=== PATIENT | female | born 1960 | race Caucasian/White ===

== ENCOUNTER 2022-07-22 07:06 | Day surgery (SDC) | payer MEDICARE, SELFPAY ==
[2022-07-22 08:06] LABS: Glucometer 169 mg/dL (74-106)
[2022-07-22 08:19] VITALS: BP 171/100; PULSE 84; RESP 16; TEMP 36.3; O2SAT 97
[2022-07-22] MEDS: METHYLPREDNISOLONE ACETATE 80 MG/ML VIAL INJ (08:50)
[2022-07-22] MEDS: LIDOCAINE HCL 2% PF 100 MG/5 ML VIAL INJ (08:50)
[2022-07-22] MEDS: IOHEXOL 240 MG/ML - 10 ML VIAL INJ (08:50)
[2022-07-22] MEDS: 0.9 % SODIUM CHLORIDE 10 ML SYRINGE - SALINE FLUSH INJ (08:50)
[2022-07-22] MEDS: BUPIVACAINE HCL 0.25% PF 25 MG/10 ML VIAL INJ (08:50)
[2022-07-22 10:33] VITALS: BP 194/87; BP 197/91; PULSE 80; PULSE 83; RESP 20; O2SAT 95
--- NOTE | 2022-07-22 11:15 | P.ON_ITS ---
Date of procedure: 07/22/22 Procedure: Caudal Epidural Steroid Injection With catheter advancement Pre-operative diagnosis includes Radiculopathy Postoperative diagnosis same Under fluoroscopic guidance Solution used for the injection is Marcaine 0.25% Depo-Medrol 80 mg total of 5ml Omnipaque 3ml total, 1ml was used for injection to confirm needle tip placement and catheter tip placement within the epidural space. catheter was removed with the tip intact. Anesthesia: local anesthesia using 2% lidocaine, total no more than 5 mL. Timeout process compliant After obtaining informed consent .the patient was brought to the procedure room .placed in the prone position . the area was prepped and draped in a sterile fa shion utilizing betadine. 25 gauge needle was used to create a skin wheal over the sacral hiatus identified under fluoroscopy. 17 gauge touhy needle was inserted over the anesthetized area and directed to the [place] hiatus under fluoroscopic guidance . after piercing the sacrococcygeal ligament. Confirmation of needle tip placement within the epidural space was accomplished with injection of contrast solution. epidural catheter was advanced to the L5 level .catheter placement confirmed with injection of contrast solution . the steroid solution was then injected .needle and catheter was removed post procedurally. patient transferred to recovery area in stable condition. Discharged home after meeting criteria. Anesthesia: Local Surgeon: Tierney Terry Condition: stable
== END 2022-07-22 08:59 | disposition home or self-care (01) ==
PROVIDERS: Visit Provider Anesthesiology Pain Medicine
DX: M54.16 Radiculopathy, lumbar region (principal); E11.9 Type 2 diabetes mellitus without complications; Z79.4 Long term (current) use of insulin
CPT/HCPCS: 36415; 62323; 82948; J1040; Q9966

== ENCOUNTER 2022-08-07 13:09 | Outpatient (OUT) | payer MEDICARE, SELFPAY ==
--- NOTE | 2022-08-07 13:42 | CONS_ITS ---
CONSULTATION DATE: ??08/07/2022 TO:? Judith Newman D.O. CHIEF COMPLAINT:? Includes severe lower back pain, bilateral lower extremity pain, worse on the right than left side.? HISTORY:? She reports the pain as being 7/10 pain, sharp in character, increased with activity such as standing, walking and performing transitioning maneuvers.? She feels most comfortable in the semi-recumbent position.? Denied any change in bowel and bladder habits or new sensorimotor changes in the lower extremities. EXAM:? Notable for patient having persistent hypoesthesia along the right L4 dermatome; however, her motor strength is 5/5.? She has negative straight leg raise.? She had no signs consistent with myelopathy involving the lower extremities.? She had a fair amount of myofascial spasm of the lumbar paravertebral muscles occurring bilaterally.? IMPRESSION:? Our impression is patient appears to have chronic pain secondary to spinal stenosis with right L4 radiculopathy, which had improved after her last caudal epidural steroid injection.? However, despite the improvement in her strength, she still has significant pain over her lower back.? At this point, she has failed conservative therapy with interventional pain management techniques at this current time. RECOMMENDATIONS:? I recommend she consider following up with possible neurosurgical options.? I have asked her to continue with her current regimen consisting of Zanaflex 4 mg b.i.d., [place] 5 mg t.i.d., which she reports does improve her pain symptoms and improves her quality of life and her sleep pattern, and she denies having side effects with the same.? Will see her back in the office in approximately two months? time or sooner if needed. As part of providing excellent, safe, comprehensive care, the following was completed at our patient's visit: 1. A medication reconciliation and review to ensure accurate knowledge of current/active medications, including asking our patients to inform us about any [id number] medications or herbal remedies/nutritional supplements/alternative remedies. 2. A review to specifically ensure our patients have had annual screening for: elevated body mass index (BMI, see intake chart for exact total), tobacco use, screening for depression, and screening for unhealthy alcohol use.? When screening is concerning, patients are provided with education and the specific recommendation to discuss the concerning health issue and treatment options with their primary care provider. MAYELA
== END 2022-08-07 13:10 | disposition still patient (30) ==
PROVIDERS: Visit Provider Anesthesiology Pain Medicine
DX: M48.061 Spinal stenosis, lumbar region without neurogenic claudication (principal); M54.16 Radiculopathy, lumbar region; M54.50 Low back pain, unspecified; M79.662 Pain in left lower leg; M79.661 Pain in right lower leg; G89.29 Other chronic pain
CPT/HCPCS: G0463

== ENCOUNTER 2022-10-15 11:22 | Outpatient (OUT) | payer MEDICARE, SELFPAY ==
--- NOTE | 2022-10-15 11:34 | PM.CN ---
Consult Note: HPI Data of Consult Patient: known to practice within the last 3 years Requesting Physician: Shama Allen NP Primary Care Provider: [facility] Consult Narrative Reason for consult: low back pain Narrative: Tana Clay a pleasant 62 year old female presents for follow up on low back pain with intermittent neurogenic claudication and bilateral knee pain. Patient currently on lyrica 75mg BID, zanaflex 4mgBID, norco 5/325 TID and wellbutrin 300mg daily. Patient reports her pain is mildly controlled, today rating pain 3/10. patient continues to follow up with Dr Turner. cc:: CC: Shama Allen NP Review of Systems ROS Status of ROS 10 or more systems reviewed and unremarkable except as noted in history and below Musculoskeletal Reports: back pain and joint pain [facility] Medical History (Updated 10/15/22 @ 12:08 by Shama Allen NP) Surgical History Meds Home Medications and Allergies Home Medications Medication Instructions Recorded Confirmed Type Pamelor 100 mg PO .hs 07/16/22 07/22/22 History aripiprazole 5 mg tablet (Abilify) 5 mg PO QDAY 07/16/22 07/22/22 History atorvastatin 40 mg tablet 40 mg PO QDAY 07/16/22 07/22/22 History bupropion HCl 300 mg 24 hr tablet, 300 mg PO QDAY 07/16/22 07/22/22 History extended release (Wellbutrin XL) hydrocodone 5 mg-acetaminophen 325 1 tab PO TID 07/16/22 07/22/22 History mg tablet lisinopril 5 mg tablet 5 mg PO QDAY 07/16/22 07/22/22 History metformin 1,000 mg tablet 1,000 mg PO BID 07/16/22 07/22/22 History metoprolol tartrate 25 mg tablet 25 mg PO BID 07/16/22 07/22/22 History omeprazole 20 mg capsule,delayed 20 mg PO QDAY 07/16/22 07/22/22 History release pregabalin 75 mg capsule (Lyrica) 75 mg PO BID 07/16/22 07/22/22 History tizanidine 4 mg capsule (Zanaflex) 4 mg PO Q12H 07/16/22 07/22/22 History hydrocodone 5 mg-acetaminophen 325 1 tab PO TID PRN pain #90 tabs 10/06/22 Rx mg tablet Allergies Allergy/AdvReac Type Severity Reaction Status Date / Time No Known Drug Allergies Allergy Verified 07/16/22 11:53 Exam Constitutional Documenting provider has reviewed patient's vital signs: yes Common normals: no apparent distress, oriented x3, healthy appearing, alert and well nourished General appearance: cooperative HENMT Common normals: normocephalic, hearing grossly normal bilaterally and moist oral mucous membranes Head and scalp: normocephalic Eye Common normals: PERRL Pupil: PERRL Neck & C-Spine Common normals: full ROM General: normal visual inspection Chest Common normals: inspection of chest normal Respiratory Common normals: normal respiratory effort, no retractions and no use of accessory muscles Back & Pelvis Thoracic spine/upper back: normal to inspection and thoracic ROM normal Lumbar spine/lower back: ROM limited, pain with ROM and straight leg raise positive right Sacroiliac joints: SI joints normal Other: back pain with intermittent right sided radiculopathy Extremity Right lower extremity: knee joint Left lower extremity: knee joint Other: R/L knee pain, limited ROM, decrease in strength. Neuro Common normals: oriented x3, CN's II-XII intact bilaterally, moves all extremities, no focal motor deficits, no sensory deficits noted and deep tendon reflexes 2+ bilaterally Sensorium/orientation: alert Motor exam: no movement abnormalities noted and strength abnormal (BLE 3/5) Psych Common normals: mental status grossly normal, thought process normal, cooperative, affect normal, speech normal and activity/motor behavior normal Speech: normal speech Thought process: normal thought process Results Additional Findings Additional findings: I have checked an OARRS report on this patient today and there are no aberrancies noted in the prescribing history.?? A drug screen was completed and reviewed within the last year, and if there has not been a drug screen completed we ordered one today to monitor higher risk, state monitored pain medication use. As part of providing excellent, safe, comprehensive care, the following was completed at our patient's visit: 1. A medication reconciliation and review to ensure accurate knowledge of current/active medications, including asking our patients to inform us about any [id number] medications or herbal remedies/nutritional supplements/alternative remedies. 2. A review to specifically ensure our patients have had annual screening for: elevated body mass index (BMI), tobacco use, screening for depression, and screening for unhealthy alcohol use. When screening is concerning, patients are provided with education and the specific recommendation to discuss the concerning health issue and treatment options with their primary care provider. The patient was counseled that proper dietary changes and consistent participation in a home exercise plan can lead to weight loss. Weight loss can help to improve functionality in patients with chronic pain.? Assessment and Plan Assessment and Plan (1) Bilateral knee pain: (2) Lumbar radiculopathy: (3) Muscle spasm: (4) Spinal stenosis of lumbar region: Plan continue lyrica 75mg BID continue zanaflex 4mg BID continue wellbutron 300mg daily discussed opioid wean/titration of norco 5/325 mg TID as she does not find this medication beneficial. Discussed cutting back to BID-TID and if pain increases then we may need to increase dose of medication, if pain is unchanged as she comes down off of this medication we can consider medication rotation. continue follow up with neurosurgery and PCP f/u 2 months to discuss care plan
== END 2022-10-15 11:23 | disposition home or self-care (01) ==
LOC: PM 11:22
PROVIDERS: Visit Provider Nurse Practitioner
DX: M54.16 Radiculopathy, lumbar region (principal); M25.561 Pain in right knee; M25.562 Pain in left knee; M62.838 Other muscle spasm; M48.061 Spinal stenosis, lumbar region without neurogenic claudication
CPT/HCPCS: G0463

== ENCOUNTER 2022-12-10 10:53 | Outpatient (OUT) | payer MEDICARE, SELFPAY ==
--- NOTE | 2022-12-10 11:14 | P.CN_ITS ---
Consult Note: HPI Data of Consult Requesting Physician: Shama Allen NP Primary Care Provider: [facility] Consult Narrative Reason for consult: F/u Narrative: Lesli Clay a pleasant 62 year old female presents for evaluation and management of chronic low back pain and NC to bilateral legs. Patient has been deemed nonsurgical by two N/s now, most recently Dr Turner. Patient rating pain 5/10 sharp stabbing pressure and pain, weakness and cramping in legs with ambulation. Patient wishes to discuss medication management today as she has failed to benefit from injection therapy in the past. cc:: CC: Shama Allen NP Review of Systems ROS Status of ROS 10 or more systems reviewed and unremarkable except as noted in history and below Musculoskeletal Reports: back pain PFSH PFSH Medical History (Updated 12/10/22 @ 12:07 by Shama Allen NP) Acid reflux ?K21.9 - Gastro-esophageal reflux disease without esophagitis (ICD-10) Anesthesia complication ?T88.59XA - Other complications of anesthesia, initial encounter (ICD-10) Anxiety ?F41.9 - Anxiety disorder, unspecified (ICD-10) Diabetes 1.5, managed as type 2 ?E13.9 - Other specified diabetes mellitus without complications (ICD-10) Heartburn ?R12 - Heartburn (ICD-10) Hypercholesterolemia ?E78.00 - Pure hypercholesterolemia, unspecified (ICD-10) Hypertension ?I10 - Essential (primary) hypertension (ICD-10) Low back pain ?M54.50 - Low back pain, unspecified (ICD-10) Obesity ?E66.9 - Obesity, unspecified (ICD-10) Osteoarthritis ?M19.90 - Unspecified osteoarthritis, unspecified site (ICD-10) Postmenopausal ?Z78.0 - Asymptomatic menopausal state (ICD-10) RSD (reflex sympathetic dystrophy) ?G90.50 - Complex regional pain syndrome I, unspecified (ICD-10) Shingles ?B02.9 - Zoster without complications (ICD-10) Surgical History H/O dilation and curettage ?Z98.890 - Other specified postprocedural states (ICD-10) H/O hemorrhoidectomy ?Z98.890 - Other specified postprocedural states (ICD-10) H/O lumbar discectomy ?Z98.890 - Other specified postprocedural states (ICD-10) H/O repair of rotator cuff ?Z98.890 - Other specified postprocedural states (ICD-10) History of delivery ?Z98.891 - History of uterine scar from previous surgery (ICD-10) History of fusion of cervical spine ?Z98.1 - Arthrodesis status (ICD-10) History of hysteroscopy ?Z98.890 - Other specified postprocedural states (ICD-10) History of lumbar laminectomy ?Z98.890 - Other specified postprocedural states (ICD-10) Hx of arthroscopy of knee ?Z98.890 - Other specified postprocedural states (ICD-10) S/P trigger finger release ?Z98.890 - Other specified postprocedural states (ICD-10) Meds Home Medications and Allergies Home Medications Medication Instructions Recorded Confirmed Type Pamelor 100 mg PO .hs 07/16/22 07/22/22 History aripiprazole 5 mg tablet (Abilify) 5 mg PO QDAY 07/16/22 07/22/22 History atorvastatin 40 mg tablet 40 mg PO QDAY 07/16/22 07/22/22 History bupropion HCl 300 mg 24 hr tablet, 300 mg PO QDAY 07/16/22 07/22/22 History extended release (Wellbutrin XL) hydrocodone 5 mg-acetaminophen 325 1 tab PO TID 07/16/22 07/22/22 History mg tablet lisinopril 5 mg tablet 5 mg PO QDAY 07/16/22 07/22/22 History metformin 1,000 mg tablet 1,000 mg PO BID 07/16/22 07/22/22 History metoprolol tartrate 25 mg tablet 25 mg PO BID 07/16/22 07/22/22 History omeprazole 20 mg capsule,delayed 20 mg PO QDAY 07/16/22 07/22/22 History release pregabalin 75 mg capsule (Lyrica) 75 mg PO BID 07/16/22 07/22/22 History tizanidine 4 mg capsule (Zanaflex) 4 mg PO Q12H 07/16/22 07/22/22 History hydrocodone 5 mg-acetaminophen 325 1 tab PO TID PRN pain #90 tabs 10/06/22 Rx mg tablet hydrocodone 5 mg-acetaminophen 325 1 tab PO TID PRN pain #90 tabs 10/30/22 Rx mg tablet hydrocodone 5 mg-acetaminophen 325 1 tab PO TID PRN pain #90 tabs 12/03/22 Rx mg tablet Allergies Allergy/AdvReac Type Severity Reaction Status Date / Time No Known Drug Allergies Allergy Verified 07/16/22 11:53 Exam Constitutional Documenting provider has reviewed patient's vital signs: yes Common normals: no apparent distress, oriented x3, healthy appearing, alert and well nourished General appearance: cooperative HENNH Common normals: normocephalic, hearing grossly normal bilaterally and moist oral mucous membranes Head and scalp: normocephalic Eye Common normals: PERRL Pupil: PERRL Neck & C-Spine Common normals: full ROM General: normal visual inspection Chest Common normals: inspection of chest normal Respiratory Common normals: normal respiratory effort, no retractions and no use of accessory muscles Back & Pelvis Thoracic spine/upper back: normal to inspection and thoracic ROM normal Lumbar spine/lower back: ROM limited, pain with ROM and straight leg raise positive right Sacroiliac joints: SI joints normal Other: back pain with intermittent right sided radiculopathy bilateral leg weakness and cramping Extremity Common normals: normal to inspection and full ROM Right lower extremity: knee joint Left lower extremity: knee joint Other: R/L knee pain, limited ROM, decrease in strength. Neuro Common normals: oriented x3, CN's II-XII intact bilaterally, moves all extremities, no focal motor deficits, no sensory deficits noted and deep tendon reflexes 2+ bilaterally Sensorium/orientation: alert Gait (neuro): antalgic Motor exam: no movement abnormalities noted and strength abnormal (BLE 3/5) Psych Common normals: mental status grossly normal, thought process normal, cooperative, affect normal, speech normal and activity/motor behavior normal Speech: normal speech Thought process: normal thought process Assessment and Plan Assessment and Plan (1) Spinal stenosis of lumbar region: (2) Muscle spasm: (3) Lumbar radiculopathy: (4) Chronic prescription opiate use: Assessment and Plan: I feel these medications are improving the patient's quality of life and allow them to tolerate activities of daily living as well as participate in recreational activity.? The patient does not report intolerable side effects. The patient is NOT opioid naive and non-pharmacologic and non-opioid treatment has failed to significantly relieve the patient's pain and improve functionality. The patient has a diagnosis that is related to a somatic or visceral pain etiology. ? ?? I reviewed with the patient the potential risks and side effects with the use of? opioid medications including but not limited to respiratory depression,? sedation, and even . I verified the patient has access to naloxone should? these effects occur. I advised the patient to avoid the use of any other? sedation substances including alcohol, THC, and benzodiazepines while? taking opioid medications due to the risk of compounding side effects and? detrimental outcomes. I reviewed the [employer], pain treatment agreement, urine? drug screen, and opioid start talking forms. The patient was advised to let? their family know they had Naloxone in case they would need to administer? the medication.? ?? A drug screen was completed within the last year, and no aberrancies were noted regarding their use of controlled substances. The patient understands they are subject to the terms and conditions of the pain contract that they have signed. ? ?? I have checked an OARRS report on this patient today and there are no aberrancies noted in the prescribing history.? Plan stop Presho, start percocet 5-325mg TID PRN narcan discussed and prescribed continue lyrica 75mg BID continue zanaflex 4mg BID continue wellbutron 300mg daily continue f/u with PCP regarding high BP f/u 1 month to review medication changes
== END 2022-12-10 10:54 | disposition home or self-care (01) ==
PROVIDERS: Visit Provider Nurse Practitioner
DX: M48.061 Spinal stenosis, lumbar region without neurogenic claudication (principal); M62.838 Other muscle spasm; M54.16 Radiculopathy, lumbar region; Z79.891 Long term (current) use of opiate analgesic
CPT/HCPCS: G0463

== ENCOUNTER 2023-01-07 11:06 | Outpatient (OUT) | payer MEDICARE, SELFPAY ==
--- NOTE | 2023-01-07 11:39 | P.CN_ITS ---
Consult Note: HPI Data of Consult Patient: known to practice within the last 3 years Requesting Physician: Shama Allen NP Primary Care Provider: [facility] Consult Narrative Reason for consult: F/u Narrative: Lesli Clay a pleasant 62 year old female presents for evaluation and management of chronic low back pain and NC to bilateral legs. Patient has been deemed nonsurgical by three neurosurgens recently and deemed non surgical. Patient rating pain 7/10 sharp stabbing pressure and pain, weaknes s and cramping in legs with ambulation. Patient wishes to discuss medication management today as she has failed to benefit from injection therapy in the past. cc:: CC: Shama Allen NP Review of Systems ROS Status of ROS 10 or more systems reviewed and unremarkable except as noted in history and below Musculoskeletal Reports: back pain and joint pain PFSH PFS Medical History (Updated 12/10/22 @ 12:07 by Shama Allen NP) Acid reflux ?K21.9 - Gastro-esophageal reflux disease without esophagitis (ICD-10) Anesthesia complication ?T88.59XA - Other complications of anesthesia, initial encounter (ICD-10) Anxiety ?F41.9 - Anxiety disorder, unspecified (ICD-10) Diabetes 1.5, managed as type 2 ?E13.9 - Other specified diabetes mellitus without complications (ICD-10) Heartburn ?R12 - Heartburn (ICD-10) Hypercholesterolemia ?E78.00 - Pure hypercholesterolemia, unspecified (ICD-10) Hypertension ?I10 - Essential (primary) hypertension (ICD-10) Low back pain ?M54.50 - Low back pain, unspecified (ICD-10) Obesity ?E66.9 - Obesity, unspecified (ICD-10) Osteoarthritis ?M19.90 - Unspecified osteoarthritis, unspecified site (ICD-10) Postmenopausal ?Z78.0 - Asymptomatic menopausal state (ICD-10) RSD (reflex sympathetic dystrophy) ?G90.50 - Complex regional pain syndrome I, unspecified (ICD-10) Shingles ?B02.9 - Zoster without complications (ICD-10) Surgical History H/O dilation and curettage ?Z98.890 - Other specified postprocedural states (ICD-10) H/O hemorrhoidectomy ?Z98.890 - Other specified postprocedural states (ICD-10) H/O lumbar discectomy ?Z98.890 - Other specified postprocedural states (ICD-10) H/O repair of rotator cuff ?Z98.890 - Other specified postprocedural states (ICD-10) History of delivery ?Z98.891 - History of uterine scar from previous surgery (ICD-10) History of fusion of cervical spine ?Z98.1 - Arthrodesis status (ICD-10) History of hysteroscopy ?Z98.890 - Other specified postprocedural states (ICD-10) History of lumbar laminectomy ?Z98.890 - Other specified postprocedural states (ICD-10) Hx of arthroscopy of knee ?Z98.890 - Other specified postprocedural states (ICD-10) S/P trigger finger release ?Z98.890 - Other specified postprocedural states (ICD-10) Meds Home Medications and Allergies Home Medications Medication Instructions Recorded Confirmed Type Pamelor 100 mg PO .hs 07/16/22 07/22/22 History aripiprazole 5 mg tablet (Abilify) 5 mg PO QDAY 07/16/22 07/22/22 History atorvastatin 40 mg tablet 40 mg PO QDAY 07/16/22 07/22/22 History bupropion HCl 300 mg 24 hr tablet, 300 mg PO QDAY 07/16/22 07/22/22 History extended release (Wellbutrin XL) hydrocodone 5 mg-acetaminophen 325 1 tab PO TID 07/16/22 07/22/22 History mg tablet lisinopril 5 mg tablet 5 mg PO QDAY 07/16/22 07/22/22 History metformin 1,000 mg tablet 1,000 mg PO BID 07/16/22 07/22/22 History metoprolol tartrate 25 mg tablet 25 mg PO BID 07/16/22 07/22/22 History omeprazole 20 mg capsule,delayed 20 mg PO QDAY 07/16/22 07/22/22 History release pregabalin 75 mg capsule (Lyrica) 75 mg PO BID 07/16/22 07/22/22 History tizanidine 4 mg capsule (Zanaflex) 4 mg PO Q12H 07/16/22 07/22/22 History hydrocodone 5 mg-acetaminophen 325 1 tab PO TID PRN pain #90 tabs 10/06/22 Rx mg tablet hydrocodone 5 mg-acetaminophen 325 1 tab PO TID PRN pain #90 tabs 10/30/22 Rx mg tablet hydrocodone 5 mg-acetaminophen 325 1 tab PO TID PRN pain #90 tabs 12/03/22 Rx mg tablet oxycodone-acetaminophen 5 mg-325 1 tab PO TID PRN pain #90 tabs 12/10/22 Rx mg tablet (Percocet) Allergies Allergy/AdvReac Type Severity Reaction Status Date / Time No Known Drug Allergies Allergy Verified 07/16/22 11:53 Assessment and Plan Assessment and Plan (1) Spinal stenosis of lumbar region: (2) Muscle spasm: (3) Lumbar radiculopathy: (4) Chronic prescription opiate use: Assessment and Plan: I feel these medications are improving the patient's quality of life and allow them to tolerate activities of daily living as well as participate in recreational activity.? The patient does not report intolerable side effects. The patient is NOT opioid naive and non-pharmacologic and non-opioid treatment has failed to significantly relieve the patient's pain and improve functionality. The patient has a diagnosis that is related to a somatic or visceral pain etiology. ? ?? I reviewed with the patient the potential risks and side effects with the use of? opioid medications including but not limited to respiratory depression,? sedation, and even . I verified the patient has access to naloxone should? these effects occur. I advised the patient to avoid the use of any other? sedation substances including alcohol, THC, and benzodiazepines while? taking opioid medications due to the risk of compounding side effects and? detrimental outcomes. I reviewed the [employer], pain treatment agreement, urine? drug screen, and opioid start talking forms. The patient was advised to let? their family know they had Naloxone in case they would need to administer? the medication.? ?? A drug screen was completed within the last year, and no aberrancies were noted regarding their use of controlled substances. The patient understands they are subject to the terms and conditions of the pain contract that they have signed. ? ?? I have checked an OARRS report on this patient today and there are no aberrancies noted in the prescribing history.? Plan increase percocet to 7.5-325mg BID-TID PRN moderate to severe pain #75 tablets a month narcan discussed and prescribed continue lyrica 75mg BID continue zanaflex 4mg BID continue Wellbutrin 300mg daily f/u 1 month to review medication changes
== END 2023-01-07 11:07 | disposition home or self-care (01) ==
PROVIDERS: Visit Provider Nurse Practitioner
DX: M48.061 Spinal stenosis, lumbar region without neurogenic claudication (principal); M62.838 Other muscle spasm; M54.16 Radiculopathy, lumbar region; Z79.891 Long term (current) use of opiate analgesic
CPT/HCPCS: G0463

== ENCOUNTER 2023-02-19 08:07 | Outpatient (OUT) | payer MEDICARE, SELFPAY ==
--- OUTSIDE RECORDS SUMMARY | 2023-02-19 08:10 | XMS_ITS | CCD ---
Author Name Unknown Address [address] [place] [address] Organization [facility] Care Team Providers Care Outpatient Psychiatrist Name Role Phone QUE BLAKE Unavailable Unavailable GECHASEINGQUE Unavailable Unavailable SELF, REFERRED Unavailable Unavailable OLIVE, ROSALES Unavailable Unavailable [facility] Unavailable Unavailable QUE BLAKE Unavailable Unavailable WIEPKING, LAUREN Unavailable Unavailable SELF, REFERRED Unavailable Unavailable RICKY JULIEN Unavailable Unavailable OLIVE, ROSALES Unavailable Unavailable QUE BLAKE Unavailable Unavailable QUE BLAKE Unavailable Unavailable QUE BLAKE Unavailable Unavailable OLIVE, ROSALES Unavailable Unavailable Clifford Munoz Jr. Unavailable Clifford Munoz Unavailable Lili Burgos Unavailable [facility] Unava ilable OLIVIER ., DR ADAM Liu Admitting Unavailable AGUAYO ., DR ADAM Liu Attending Unavailable HERNANDEZ .ALICIA Consulting Unavailable LAKSHMIPATHY ., NARENDRANATH Consulting Daphne vailable [facility] Unava ilable LAKSHMIPATHY ., NARENDRANATH Admitting Daphne vailable LAKSHMIPATHY ., NARENDRANATH Attending Daphne vailable [facility] Unava ilable MARTHA, DR BLANE Cutler Consulting Unavailable HERNANDEZ .ALICIA Admitting Unavailable HERNANDEZ .ALICIA Attending Unavailable HERNANDEZ ., ALICIA Consulting Unavailable [facility] Unava ilable HALKER ., JASON Attending Unavailable HALKER .JASON Consulting Unavailable LAKSHMIPATHY ., NARENDRANATH Admitting Daphne vailable [facility] Unava ilable HALKER ., JASON Admitting Unavailable HALKER ., JASON Attending Unavailable LAKSHMIPATHY ., NARENDRANATH Consulting Daphne vailable [facility] Unava ilable AGUAYO ., DR ADAM Liu Admitting Unavailable AGUAYO ., DR ADAM Liu Attending Unavailable HERNANDEZ ., ALICIA Consulting Unavailable [facility] Unava ilable HERNANDEZ ., ALICIA Consulting Unavailable AGUAYO ., DR ADAM Liu Attending Unavailable AGUAYO ., DR ADAM Liu Admitting Unavailable [facility] Unava ilable AGUAYO ., DR ADAM Liu Admitting Unavailable AGUAYO ., DR ADAM Liu Attending Unavailable HERNANDEZ ., ALICIA Consulting Unavailable [facility] Unava ilable LAKSHMIPATHY ., NARENDRANATH Admitting Daphne vailable LAKSHMIPATHY ., NARENDRANATH Attending Daphne vailable LAKSHMIPATHY ., NARENDRANATH Consulting Daphne vailable Martine Tobias Unavailable Majo, DO Jade Primary Care Provider DO Kalie Kasper Attending Provider DO Judith Newman Primary Care Provider [facility] Attending Provider DO Kalie Kasper Primary Care Provider Majo, DO Jade Attending Provider Stoney Turner Unavailable Martine Tobias Admitting Unavailable Martine Tobias Attending Unavailable Judith Newman Primary Care Unavailable Martine Tobias Admitting Unavailable Martine Tobias Attending Unavailable Judith Newman Primary Care Unavailable Rumschlag, Kalie Admitting Unavailable Rumschlag, Kalie Primary Care Unavailable Rumcurtislag, Kalie Attending Unavailable Martine Tobias Attending Unavailable Martine Tobias Admitting Unavailable Basil Newmanee G Primary Care Unavailable Martine Tobias Admitting Unavailable Martine Tobias Attending Unavailable Judith Newman G Primary Care Unavailable JUDITH NEWMAN Attending Unavailable JUDITH NEWMAN Attending Unavailable JUDITH NEWMAN Attending Unavailable BLANE FREDERICK Attending Unavailable Medications Current Medications Medication Drug Class(es) Dates Sig (Normalized) Sig (Original) 3 ML semaglutide 1.34 MG/ML Pen Injector [Ozempic] (8 sources) inject 1 mg by subcutaneous injection every week Ozempic (1 MG/DOSE) 4 MG/3ML DIAL AND INJECT UNDER THE SKIN 1 MG WEEKLY for 28 Active inject 1 mg by subcu taneous injection every week Ozempic (1 MG/DOSE) 4 MG/3ML DIAL AND INJECT UNDER THE SKIN 1 MG WEEKLY Active 3 ML semaglutide 2.68 MG/ML Pen Injector [Ozempic] (20 sources) Start: 10-28-2021 inject 1 mg by subcutaneous injection every week Ozempic (2 MG/DOSE) 8 MG/3ML as directed Subcutaneous weekly for 90 days PAP Oct, Active Start: 07-08-2021 Start: 07-08-2021 inject 2 mg by subcu taneous injection every week Ozempic (2 MG/DOSE) 8 MG/3ML 2 mg Subcutaneous weekly for 90 days June, Not-Taking Start: 07-08-2021 inject 2 mg by subcu taneous injection every week Ozempic (2 MG/DOSE) 8 MG/3ML 2 mg Subcutaneous weekly for 90 days June, Active inject 2 mg by subcu taneous injection every week Ozempic (2 MG/DOSE) 8 MG/3ML 2 mg Subcutaneous weekly for 90 days PAP Active amLODIPine 10 mg oral tablet (20 sources) Dihydropyridine Calcium Channel Karrie Start: 12-17-2020 take 10 mg by mouth once daily Amlodipine Active 10 MG PO Daily December 17, 2020 12:00am ARIPiprazole 10 mg oral tablet (15 sources) Atypical Antipsychotic Start: 12-17-2020 take 10 mg by mouth once daily Aripiprazole Active 10 MG PO Daily December 17, 2020 12:00am take 1 tablet by mickey th every twenty-four hours ARIPiprazole 15 MG 1 tablet Orally Once a day Active atorvastatin 40 mg oral tablet (20 sources) HMG-CoA Reductase Inhibitor Start: 12-17-2020 take 40 mg by mouth once daily at bedtime Atorvastatin Active 40 MG PO Daily at bedtime December 17, 2020 12:00am 24 hr buPROPion hydrochloride 300 mg extended release oral tablet (20 sources) Aminoketone Start: 11-01-2021 take 300 mg by mouth once daily Bupropion Hcl Active 300 MG PO Daily December 17, 2020 12:00am Cholecalciferol (20 sources) Vitamin D Start: 08-01-2022 Start: 08-01-2022 take 1 capsule by [facility] every week Start: 08-01-2022 take 1 capsule by [facility] every week Cholecalciferol 1.25 MG (91334 UT) 1 capsule Orally weekly for 56 days Then OtC 4000 u daily therafter Jul, Active take 2 tablets by [facility] every twenty-four hours Vitamin D3 50 MCG (2000 UT) 2 tablets Orally Once a day Not-Taking/PRN take 1 capsule by [facility] every week Cholecalciferol 100 MCG (4000 UT) 1 capsule Orally weekly for 56 days Then OtC 4000 u daily therafter Active take 1 capsule by [facility] every week Cholecalciferol 50 MCG (2000 UT) 1 capsule Orally weekly for 56 days Then OtC 4000 u daily therafter Active take 1 capsule by [facility] every week Cholecalciferol 1.25 MG (15890 UT) 1 capsule Orally weekly for 56 days Then OtC 4000 u daily therafter Active clotrimazole 10 mg/ml topica l cream (20 sources) Azole Antifungal Clotrimazole 1 % 1 application Externally Twice a day as needed Active Clotrimazole 1 % 1 application Externally Twice a day Active empagliflozin 25 mg oral tablet (20 sources) Sodium-Glucose Cotransporter 2 Inhibitor Start: 08-01-2022 take 1 tablet by mouth every twenty-four hours Start: 12-17-2020 take 1 tablet by [facility] once daily Empagliflozin (Jardiance) 10 mg tablet Active 20 MG PO Daily December 17, 2020 12:00am 24 hr empagliflozin 12.5 mg / metFORMIN hydrochloride 1000 mg extended release oral tablet (1 source) Biguanide, Sodium-Glucose Cotransporter 2 Inhibitor Start: 02-03-2023 take 2 tablets by mouth once daily at breakfast Synjardy XR 12.5-1000 MG 2 tablets with breakfast Orally Once a day for 30 days samples in office x 4-- knows to hold metformin while on samples Jan, Active fluocinonide 1 mg/ml topical cream (4 sources) Corticosteroid Start: 12-17-2020 Fluocinonide Active 1 APPLIC TOPICAL 2-4 TIMES PER DAY December 17, 2020 12:00am hydroCHLOROthiazide 12.5 mg / losartan potassium 50 mg oral tablet (11 sources) Thiazide Diuretic, Angiotensin 2 Receptor Karrie take 1 tablet by mouth every twenty-four hours Losartan Potassium-HCTZ 50-12.5 MG 1 tablet Orally Once a day Active take 1 tablet by mouth every twe nty-four hours 3 ml insulin glargine 100 unt/ml pen injector (20 sources) Insulin Analog Start: 12-17-2020 Insulin Glargi ne (Basaglar Kwikpen U-100 Insulin) 100 unit/mL (3 mL) insulin pen Active 55 UNIT SUBCUT Daily at bedtime December 17, 2020 12:00am inject 60 [IU] by desai bcutaneous injection once daily as needed, then inject 70 [IU] by subcutaneous injection once daily as needed Basaglar KwikPen 100 UNIT/ML 60 units daily but could titrate up to 70 units if necessary. Subcutaneous Daily for 30 days Not-Taking/PRN Basaglar KwikPen 100 UNIT/ML 68 units and follow sliding scale. Max 74 units a day. Subcutaneous Daily Active lisinopril 30 mg oral tablet (20 sources) Angiotensin Converting Enzyme Inhibitor Start: 12-17-2020 take 30 mg by mouth once daily Lisinopril Active 30 MG PO Daily December 17, 2020 12:00am take 1 tablet by mickey th every twenty-four hours Lisinopril 40 mg 1 tab(s) Orally Once a day Not-Taking/PRN metFORMIN hydrochloride 1000 mg oral tablet (20 sources) Biguanide Start: 12-17-2020 take 1000 mg by mouth twice daily Metformin Active 1000 MG PO Twice daily December 17, 2020 12:00am nortriptyline 50 mg oral capsule (20 sources) Tricyclic Antidepressant Start: 12-17-2020 take 100 mg by mouth once daily at bedtime Nortriptyline Active 100 MG PO Daily at bedtime December 17, 2020 12:00am take 2 capsules by m outh every twenty-four hours take 1 capsule by mo uth every twenty-four hours Nortriptyline HCl 75 MG 1 capsule Orally Once a day Active take 2 capsules by m outh every twenty-four hours omeprazole 20 mg delayed release oral capsule (20 sources) Proton Pump Inhibitor Start: 12-17-2020 take 20 mg by mouth once daily Omeprazole Active 20 MG PO Daily December 17, 2020 12:00am take 1 tablet by mouth at bedtim e PriLOSEC OTC 20 MG 1 tablet Orally bedtime for 30 day(s) Active take 1 tablet by mouth at bedtim e PriLOSEC OTC 20 MG 1 tablet Orally bedtime for 30 day(s) Active take 1 tablet by mouth twice maria eugenia ly PriLOSEC OTC 20 MG 1 tablet Orally Twice a day for 30 day(s) Active Ozempic (2 MG/DOSE) 8 MG/3ML (3 sources) Start: 07-08-2021 inject 2 mg by subcutaneous injection every week Ozempic (2 MG/DOSE) 8 MG/3ML 2 mg Subcutaneous weekly for 90 days June, Active pregabalin 75 mg oral capsule (11 sources) take 1 capsule by mouth every twelve hours Pregabalin 75 MG 1 capsule Orally Twice a day Active Semaglutide (4 sources) Start: 12-17-2020 inject 1 mg by subcutaneous injection every week Semaglutide (Ozempic) 1 mg/dose (4 mg/3 mL) pen injector Active 1 MG SUBCUT every week December 17, 2020 12:00am tiZANidine 4 mg oral tablet (11 sources) Central alpha-2 Adrenergic Agonist take 1 tablet by mouth every eight hours tiZANidine HCl 4 MG 1 tablet as needed Orally Three times a day Active Completed/Discontinued Medications Medication Drug Class(es) Dates Sig (Normalized) Sig (Original) acetaminophen 325 mg / HYDROcodone bitartrate 5 mg oral tablet (20 sources) Opioid Agonist Start: 12-17-2020 End: 01-02-2021 take 1 tablet by mouth twice daily Hydrocodone-Acetami nophen Discontinued 1 TAB PO Twice daily December 17, 2020 12:00am January 02, 2021 11:17pm take 1 tablet by mickey th every six hours HYDROcodone-Acetaminophen 5-325 MG 1 tab let as needed Orally every 6 hrs Not-Taking/PRN take 1 tablet by mickey th every six hours Bynum Active take 1 tablet by mickey th twice daily as needed Bynum 5-325 MG 1 tablet as needed Orally bid Active acetaminophen 325 mg / oxyCODONE hydrochloride 5 mg oral tablet (9 sources) Opioid Agonist Start: 01-03-2021 End: 10-30-2022 take 1 tablet by mouth every six hours Oxycodone-Acetaminophen (Percocet) 5-325 mg tablet Discontinued 1 TAB PO Q6H 12 09January 03, 2021 October 30, 2022 9:55am baclofen 10 mg oral tablet (20 sources) gamma-Aminob utyric Acid-ergic Agonist Start: 12-17-2020 End: 10-30-2022 take 10 mg by mouth once daily at bedtime Baclofen Discontinued 10 MG PO Daily at bedtime December 17, 2020 12:00am October 30, 2022 9:54am take 1 tablet by mickey th every twelve hours Baclofen 10 MG 1 tablet with food or mil k Orally Twice a day for 30 day(s) Not-Taking/PRN furosemide 20 mg oral tablet (20 sources) Loop Diuretic take 1 tablet by mouth once daily as needed Lasix 20 MG 1 tablet prn Orally Once a day Not-Taking/PRN 3 ml insulin degludec 200 unt/ml pen injector (20 sources) Insulin Analog Start: inject 54 [IU] by subcutaneous injection once daily as needed Tresiba FlexTouch 200 UNIT/ML 54 units daily Subcutaneous Daily for 90 days Mar, Not-Taking/PRN Start: 09-20-2021 Tresiba FlexTo uch 100 UNIT/ML 54 u Subcutaneous daily for 90 days Oct, Active Start: 09-20-2021 inject 44 [IU] by desai bcutaneous injection once daily Tresiba FlexTouch 100 UNIT/ML 44 u Subcutaneous daily for 90 days Titrate up to 70 u per day Sep, Active lidocaine 0.05 mg/mg medicated patch (11 sources) Antiarrhythmic, Amide Local Anesthetic Start: 08-12-2022 Lidocaine 5 % 1 patc h remove after 12 hours Externally Once a day for 30 days Jul, Not-Taking/PRN Start: 08-12-2022 ozempic (2 mg/dose) 8 mg/3ml solution pen-injector (4 sources) Start: 07-08-2021 inject 2 mg by subcutaneous injection every week as needed Ozempic (2 MG/DOSE) 8 MG/3ML 2 mg Subcutaneous weekly for 90 days June, Not-Taking/PRN inject 2 mg by subcu taneous injection every week Ozempic (2 MG/DOSE) 8 MG/3ML 2 mg Subcutaneous weekly for 90 days PAP Active propranolol hydrochloride 10 mg oral tablet (4 sources) beta-Adrenergic Karrie Start: 12-17-2020 End: 12-17-2020 Propranolol Discontinued MG TABLET December 17, 2020 12:00am December 17, 2020 11:44am [facility] - (11 sources) [facility] - as directed Topical Daily for 30 days Not-Taking/PRN [facility] - as directed Topical Daily for 30 days Not-Taking [facility] - as directed Topical Daily for 30 days Active Problems Active Problems Problem Classification Problem Date Documented Date Episodic/Chronic Acute and unspecified renal failure (20 sources) Acute renal failure syndrome; 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: [HEMANTH (acute kidney injury)] Episodic Administrative/socia l admission (9 sources) Dietary counseling and surveillance; 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: [Dietary counseling and surveillance Z71.3] Onset: 11-21-2020 Resolved: 10-28-2021 Episodic Anxiety disorders (1 source) Anxiety disorder, unspecified; 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: [ANXIETY DISORDER, UNSPECIFIED] Onset: 09-08-2016 Chronic Diabetes mellitus with complications (20 sources) Hyperglycemia due to type 2 diabetes mellitus; 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: [Type 2 diabetes mellitus with hyperglycemia] Onset: 11-21-2020 Resolved: 10-28-2021 Chronic Diabetes mellitus without complication (2 sources) Type 2 diabetes mellitus without complications; 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: [TYPE 2 DIABETES MELLITUS WITHOUT COMPLICATIONS] Onset: 09-08-2016 Chronic Disorders of lipid metabolism (20 sources) Hyperlipidemia; 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: [Hyperlipidemia, unspecified] Onset: 11-21-2020 Resolved: 10-28-2021 Chronic Esophageal disorders (1 source) Gastro-esophageal reflux disease without esophagitis; 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: [GASTRO-ESOPHAGEAL REFLUX DISEASE WITHOUT ESOPHAGITIS] Onset: 09-08-2016 Chronic Essential hypertension (20 sources) Essential (primary) hypertension; 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: [Benign essential hypertension] Onset: 09-08-2016 Resolved: 10-28-2021 Chronic Nutritional deficiencies (20 sources) Vitamin D deficiency; 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: [Vitamin D deficiency, unspecified] Onset: 07-04-2021 Resolved: 10-28-2021 Chronic Osteoarthritis (11 sources) Unilateral primary osteoarthritis, right knee; 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: [Osteoarthritis of left knee joint] Onset: 09-08-2016 01-03-2021 Chronic Osteoporosis (13 sources) Senile osteoporosis; 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: [Age-related osteoporosis without current pathological fracture] Chronic Other aftercare (4 sources) Aftercare following joint replacement surgery; 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: [AFTERCARE FOLLOWING JOINT REPLACEMENT SURGERY] Onset: 09-25-2016 Chronic Other aftercare (20 sources) Long-term current use of insulin; 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: [FCI (current) use of insulin] Episodic Other aftercare (10 sources) [facility] (current) use of insulin; 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: [[facility]I current use of insulin Z79.4] Onset: 11-21-2020 Resolved: 10-28-2021 Episodic Other connective tissue disease (1 source) Presence of right artificial knee joint; 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: [PRESENCE OF RIGHT ARTIFICIAL KNEE JOINT] Onset: 09-20-2016 Chronic Other connective tissue disease (4 sources) History of total knee arthroplasty; 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: [Presence of left artificial knee joint] 01-03-2021 Chronic Other connective tissue disease (1 source) Pain in left leg Episodic Other connective tissue disease (3 sources) Arthrodesis status Episodic Other connective tissue disease (8 sources) History of lumbar fusion; 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: [Arthrodesis status] Episodic Other nervous system disorders (4 sources) Other specified mononeuropathies of right lower limb; 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: [OTH SPEC MONONEUROPATH RT LOW LIMB] Onset: 06-03-2022 Chronic Other nervous system disorders (2 sources) Other chronic pain; 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: [OTHER CHRONIC PAIN] Onset: 05-23-2022 Chronic Other nervous system disorders (5 sources) Chronic pain; 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: [Other chronic pain] Chronic Other nervous system disorders (8 sources) Tremor; 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: [Tremor, unspecified] Episodic Other nervous system disorders (1 source) Tremor, unspecified Episodic Other non-traumatic joint disorders (1 source) Pain in right hip; 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: [PAIN IN RIGHT HIP] Onset: 06-26-2022 Episodic Other nutritional; endocrine; and metabolic disorders (1 source) Morbid (severe) obesity due to excess calories; 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: [MORBID (SEVERE) OBESITY DUE TO EXCESS CALORIES] Onset: 09-08-2016 Chronic Other nutritional; endocrine; and metabolic disorders (20 sources) Obesity; 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: [Obesity] Chronic Other nutritional; endocrine; and metabolic disorders (20 sources) Body mass index 40+ - severely obese; 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: [Body mass index (BMI) 50.0-59.9, adult] Chronic Other nutritional; endocrine; and metabolic disorders (6 sources) Body mass index (BMI) 45.0-49.9, adult; 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: [BMI 45.0-49.9, adult Z68.42] Onset: 11-21-2020 Resolved: 10-28-2021 Chronic Other nutritional; endocrine; and metabolic disorders (2 sources) Body mass index (BMI) 40.0-44.9, adult; 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: [BMI 40.0-44.9, adult] Chronic Residual codes; unclassified (1 source) Asymptomatic menopausal state Episodic Screening or history of mental health and substance abuse (2 sources) Personal history of nicotine dependence; 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: [Encounter for screening for depression] Onset: 09-08-2016 Episodic Spondylosis; intervertebral disc disorders; other back problems (10 sources) Spondylosis without myelopathy or radiculopathy, lumbar region; 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: [Postlaminectomy syndrome, not elsewhere classified] Onset: 08-05-2021 Chronic Unclassified (11 sources) Body mass index (BMI) 50-59.9 , adult; 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: [BODY MASS INDEX (BMI) 50-59.9 , ADULT] Onset: 09-08-2016 Resolved: 11-21-2020 Chronic Unclassified (1 source) [facility] (current) use of oral hypoglycemic drugs; 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: [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 HYPOGLYCEMIC DRUGS] Onset: 09-08-2016 Unclassified (2 sources) Unknown / UNK(Unknown) Onset: 09-08-2016 Unclassified (1 source) Other specified depressive episodes; 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: [OTHER SPECIFIED DEPRESSIVE EPISODES] Onset: 09-08-2016 Unclassified (4 sources) LOW BACK PAIN, UNSPECIFIED; 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: [LOW BACK PAIN, UNSPECIFIED] Onset: 08-05-2021 Unclassified (1 source) Spinal stenosis, lumbar region with neurogenic claudication; 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: [Spinal stenosis, lumbar region with neurogenic claudication] Onset: 10-30-2022 Unclassified (1 source) Encounter for screening for osteoporosis; 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: [Encounter for screening for osteoporosis] Onset: 10-07-2022 Past or Other Problems Problem Classification Problem Date Documented Da te Episodic/Chronic Complications of surgical procedures or medical care (1 source) Infection following a procedure, initial encounter; 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: [INFECTION FOLLOWING A PROCEDURE, INITIAL ENCOUNTER] Onset: 09-20-2016 Episodic Genitourinary symptoms and ill-defined conditions (1 source) Proteinuria, unspecified; 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: [Albuminuria R80.9] Onset: 11-21-2020 Resolved: 11-21-2020 Episodic Other connective tissue disease (1 source) Other specified soft tissue disorders; 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: [OTHER SPECIFIED SOFT TISSUE DISORDERS] Onset: 09-20-2016 Episodic Other non-traumatic joint disorders (1 source) Pain in right knee; 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: [PAIN IN RIGHT KNEE] Onset: 09-20-2016 Episodic Skin and subcutaneous tissue infections (4 sources) Local infection of the skin and subcutaneous tissue, unspecified; 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: [LOCAL INFECTION OF THE SKIN AND SUBCUTANEOUS TISSUE, UNSP] Onset: 09-20-2016 Episodic Spondylosis; intervertebral disc disorders; other back problems (20 sources) Muscle spasm of back; 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: [Radiculopathy, lumbar region] Onset: 11-06-2021 Episodic Unclassified (1 source) LOW BACK PAIN, UNSPECIFIED; 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: [LOW BACK PAIN, UNSPECIFIED] Onset: 08-01-2021 Unclassified (1 source) Low back pain, unspecified M54.50 Results Test Name Value Interpretation Reference Range Facility A1C HEMOGLOBINon 02-03-2023 HbA1c (Bld) [Mass fraction] 9.7 % [facility] Other Glucose - FINGER STICKon Glucose [Mass/Vol] 178 mg/dL [facility] Other HbA1c (Bld) [Mass fraction]o n 02-03-2023 A1C HEMOGLOBIN [facility] Other Glucose - FINGER STICKon Glucose [Mass/Vol] 180 mg/dL [facility] [employer] [employer] Other CT lumbar spine w conon 10-17 CT lumbar spine w [facility] [place] [id number] CT Scan Report Signed Patient: Lesli Clay MR#: [id number] : 1960 Acct:[id number] Age/Sex: 62 / F ADM Date: 10/30/22 Loc: XD Room: Type: [facility] Attending Dr: Martine SANZ Copies to: [facility] Par[facility] Ordering Provider: [facility] Date of Service: 10/30/22 CT/CT lumbar spine w con: Z98.1 CT lumbar spine w con 10/30/2022 9:06 AM History:Severe low back pain with pressure radiating down right leg into foot TECHNIQUE: Multi detector CT axial slices of the lumbar spine were obtained without IV contrast. Volumetric acquisition sagittal, coronal, and 3-D reconstructions were performed and reviewed on a separate workstation. CT was performed with one or more of the following dose reduction techniques: Automated exposure control, adjustment of the mA and/or kV according to patient size, or use of iterative reconstruction technique. COMPARISON: 09/19/2022 FINDINGS: There is preservation of the vertebral body heights. There is posterior fusion and decompression spanning between L1 and S1. The conus terminates at the inferior endplate of L1. There is fusion across L5-S1 intervertebral disc. There is moderate disc height loss at T11-T12 and T12-L1 with anterior osteophyte formation. No fractures or dislocations are seen. The alignment of the lumbar spine is normal. The paraspinous soft tissues are within normal limits. The visualized lung parenchyma is unremarkable. The visualized abdominal and pelvic viscera is unremarkable. There is a broad-based disc bulge at T12-L1 with mild spinal canal narrowing and mild bilateral neural foraminal narrowing. At the L4-L5 level there is a circumferential disc bulge with facet hypertrophy and ligamentum flavum thickening. There is ascites in the innominate within the facets. There is severe narrowing of spinal canal gas extends anteriorly to the lateral margin of the right neural foramen. At L5-S1 there is endplate osteophyte formation and facet hypertrophy contributing to moderate to severe bilateral neural foraminal narrowing. This is unchanged. CT/CT lumbar spine w con IMPRESSION: At the L4-L5 level there is a circumferential disc bulge with facet hypertrophy and ligamentum flavum thickening. There is ascites in the innominate within the facets. There is severe narrowing of spinal canal gas extends anteriorly to the lateral margin of the right neural foramen. At L5-S1 there is endplate osteophyte formation and facet hypertrophy contributing to moderate to severe bilateral neural foraminal narrowing. This is unchanged. Postoperative changes are redemonstrated, as above. No hardware complication. No malalignment. Impression dictated by: Mindy Tomas M.D.10/30/2022 4:11 PM Dictation Location: [place] HEALTH--14 Transcribed By: MICHELINE 10/30/22 1611 Dictated By: Mindy Tomas II, MD 10/30/22 1602 Signed By: 10/30/22 1611 Normal [facility] IR myelogram spine lumbosacr aby 10-30-2022 IR myelogram spine lumbosacral [facility] [place] [address] Interventional Radiology Rpt Signed Patient: Lesli Clay MR#: [id number] : 1960 Acct:[id number] Age/Sex: 62 / F ADM Date: 10/30/22 Loc: X Room: Type: [facility] Attending Dr: Martine SANZ Copies to: UMU Parry Ordering Provider: UMU Parry Date of Service: 10/30/22 IR/IR myelogram spine lumbosacral: Z98.1 IR myelogram spine lumbosacral 10/30/2022 9:10 AM SIGNS AND SYMPTOMS: Right-sided low back pain radiating to right foot CONTRAST: 15 mL of intravenous Isovue-M 200 INFORMED CONSENT: Reason for procedure was discussed with the patient. The procedure expectations risks benefits options and alternatives were discussed. All the questions were answered. The patient understood the results cannot be guaranteed. The procedure is indicated and risks were acceptable. Consent was obtained. PROCEDURE: A spinal epidural pain block was performed at the L3 level in the midline. Previous laminectomy site. The patient was prepped and draped in a sterile manner. 5 mL of lidocaine 1% without e pinephrine were used for local anesthesia. A 22-gauge spinal needle was introduced into the subarachnoid space at L3. 15 mL of Isovue-M 200 was injected under fluoroscopic visualization. Frontal, lateral, and oblique radiographs of the lumbar spine were obtained. Standing frontal, lateral, and flexion-extension views of the lumbar spine were also obtained. The needle was removed and hemostasis was obtained using manual pressure. Cumulative Air Kerma in mGy: 142 mGy The patient tolerated the procedure well. No immediate complications were detected. Radiographs of the lumbar spine: There is posterior fusion with laminectomy between the L1 and S1 levels without hardware complication or malalignment. There is indentation of the contrast: Representing the thecal sac anteriorly at L4-5 and laterally at L4-5 suggesting disc and facet degenerative changes contributing to significant spinal canal stenosis. Flexion and extension view show no pathologic movement. Atherosclerotic changes are present in the abdominal aorta. IR/IR myelogram spine lumbosacral IMPRESSION: Successful fluoroscopically guided lumbar myelogram. Please see separately dictated CT for further detail. Impression dictated by: Mindy Tomas M.D.10/30/2022 3:59 PM Dictation Location: [place] [address] Transcribed By: [facility] 10/30/22 1556 Dictated By: Mindy Tomas II, MD 10/30/22 1554 Signed By: 10/30/22 1555 Normal [facility] A1C HEMOGLOBINon 10-03-2022 HbA1c (Bld) [Mass fraction] 8.3 % [facility] Other Glucose - FINGER STICKon Glucose [Mass/Vol] 211 mg/dL [facility] Other HbA1c (Bld) [Mass fraction]o n 10-03-2022 A1C HEMOGLOBIN [facility] Other Creatinine (Bld) [Mass/Vol]O rdered By: Martine Tobias on 09-19-2022 Creatinine [Mass/Vol] 0.7 mg/dL 0.6-1.3 [facility] Comment on above: ER/ESD physician is notified/shown all ISTAT results.Critical values may be confirmed by laboratory testing ifdeemed necessary by ER attending doctor. MR lumbar spine wo conon MR lumbar spine wo con [facility] [place] [address] MRI Report Signed Patient: Lesli Clay MR#: [id number] : 1960 Acct:[id number] Age/Sex: 62 / F ADM Date: 09/19/22 Loc: MR Room: Type: [facility] Attending Dr: Martine SANZ Copies to: [facility] Parry Ordering Provider: [facility] Parry Date of Service: 09/19/22 MR/MR lumbar spine wo con: M54.16 MR lumbar spine wo con 09/19/2022 1:34 PM SIGNS AND SYMPTOMS: Lumbar radiculopathy PROTOCOL: Multiplanar multisequence MR images of the lumbar spine were obtained without IV contrast. COMPARISON: CT 03/06/2022. FINDINGS: Image quality is a heavily compromised as a result of fusion hardware. Contrast-enhanced images were not attempted. The bones of the lumbar spine are in anatomic alignment. There is preservation of vertebral body heights. There is posterior fusion hardware from L1 through S1 with evidence of L5-S1 intervertebral fusion. There is moderate disc height loss at T12-L1. The marrow signal is within normal limits. No epidural or paraspinous fluid collection is appreciated. At T12-L1: There is a mild broad-based disc bulge with facet hypertrophy. There is mild spinal canal narrowing with no significant neural foraminal narrowing. At L1-L2: Hardware artifact partially obscures visualization. No significant stenosis. At L2-L3: Hardware artifact partially obscures visualization. No significant stenosis. At L3-L4: Hardware artifact partially obscures visualization. No significant stenosis. At L4-L5: There is a circumferential disc bulge with facet hypertrophy. This contributes to spinal canal stenosis. The moderate to severe. There is also partial visualization of the neural foraminal narrowing on the right appears to be at least moderate. This is similar to that seen on the prior CT. At L5-S1: There is intervertebral fusion with facet hypertrophy and endplate osteophyte formation contributing to moderate to severe right and mild left neural foraminal narrowing. No significant spinal canal stenosis. MR/MR lumbar spine wo con IMPRESSION: Image quality is a heavily compromised as a result of fusion hardware. Contrast-enhanced images were not attempted. Further evaluation with CT myelography may be helpful. At L4-L5: There is a circumferential disc bulge with facet hypertrophy. This contributes to spinal canal stenosis. The moderate to severe. There is also partial visualization of the neural foraminal narrowing on the right appears to be at least moderate. This is similar to that seen on the prior CT. At L5-S1: There is intervertebral fusion with facet hypertrophy and endplate osteophyte formation contributing to moderate to severe right and mild left neural foraminal narrowing. No significant spinal canal stenosis. Impression dictated by: Mindy Tomas M.D.09/19/2022 4:07 PM Dictation Location: RADIO--07 Transcribed By: [facility] 09/19/22 1607 Dictated By: Mindy Tomas II, MD 09/19/22 1600 Signed By: 09/19/22 160 [facility] XR lumbar spine 6V w bending on 08-18-2022 XR lumbar spine 6V w bending [facility] [place] [address] XRay Report Signed Patient: Lesli Clay MR#: [id number] : 1960 Acct:[id number] Age/Sex: 62 / F ADM Date: 08/18/22 Loc: XD Room: Type: [facility] Attending Dr: Martine SANZ Copies to: [facility] Parry Ordering Provider: UMU Parry Date of Service: 08/18/22 XR/XR lumbar spine 6V w bending: M54.16 LUMBAR SPINE - 7 views CLINICAL HISTORY: Low back pain radiates down front of the right leg for several months COMPARISON: Lumbar spine series 10/25/2020 FINDINGS: Posterior hardware fixation L1-S1 without radiographic complication. No pathological motion on flexion or extension views. Vertebral body heights appear maintained. Minimal sidebending. XR/XR lumbar spine 6V w bending IMPRESSION: NO EVIDENCE OF HARDWARE COMPLICATION OR ACUTE BONY PROCESS. Impression dictated by: Noman Dodson Jr., D.OGhulam08/18/2022 12:31 PM Dictation Location: RADIO--12 Transcribed By: MICHELINE 08/18/22 1231 Dictated By: Noman Dodson Jr, DO 08/18/22 1230 Signed By: 08/18/22 1231 Normal [facility] A1C HEMOGLOBINon 06-06-2022 HbA1c (Bld) [Mass fraction] 8.0 % [facility] Other Glucose - FINGER STICKon Glucose [Mass/Vol] 156 mg/dL [facility] Other HbA1c (Bld) [Mass fraction]o n 06-06-2022 A1C HEMOGLOBIN [facility] Other POINT OF CARE GLUCOSEon 05-17 Glucose [Mass/Vol] 185 mg/dL Critically high 74-106 [facility] Comment on above: Performed By: #### P OCGLUC #### [facility] [address] [place] [address] Dr. Keegan Neal A1C HEMOGLOBINon 03-06-2022 HbA1c (Bld) [Mass fraction] 7.8 % [facility] Other CREATININEon 03-06-2022 Creatinine [Mass/Vol] 0.82 mg/dL Normal 0.55-1.02 [facility] Comment on above: Performed By: #### C EJ #### [facility] [address] [address] [address] Keegan Neal EGFR-AF MEXICAN >60 Normal >=60 [facility] Comment on above: Performed By: #### C EJ #### [facility] [address] [place] [address] [address] Keegan Neal EGFR-NON AF MEXICAN >60 Normal >=60 [facility] Comment on above: Performed By: #### C EJ #### [facility] [address] [place] [address] LSPINE WO W CONon 023 CT LSPINE WO W CON EXAMINATION: CT LSPINE WO W CON, 03/06/2022 8:24 AM EST HISTORY: Lumbar radiculopathy ; chronic lumbar pain increasing in severity COMPARISON: XR lumbar spine 10/25/2020 TECHNIQUE: CT of the lumbar spine was performed with and without IV contrast. CT dose reduction technique was used, including Automated Exposure Control. FINDINGS: PARASPINAL AREA: Normal with no visible mass BONES: Posterior mechanical fusion L1-S1 via bilateral pedicle screws and rods; no evidence of hardware fracture or loosening. Posterior decompression L1-L3. LUMBAR DISC LEVELS: L1-L2: Mild central canal and right foramen narrowing. Mild diffuse disc bulging and mild disc height reduction. L2-L3: Early degenerative disc disease is present without focal protrusion or neural impingement. L3-L4: Mild central canal and bilateral foramen narrowing secondary to mild diffuse disc bulging. Posterior decompression. L4-L5: Suspect marked central canal and moderate-marked bilateral foramen narrowing. Moderate diffuse disc bulging with possible disc protrusion. No significant disc height reduction. Moderate degenerative facet arthropathy bilaterally. L5-S1: Mild central canal and moderate bilateral foramen narrowing. Mild disc height reduction with intervertebral disc spacer. Moderate bilateral facet arthropathy. IMPRESSION: 1. Multilevel degenerative changes, with suspected moderate-marked central canal and foramen narrowing at L4-5 secondary to degenerative disc disease and facet arthropathy. 2. Posterior mechanical fusion L1-S1 with posterior decompression of L1-L3. Electronically authenticated by: BLANE THOMAS Date: 2022-03-06 11:22 Normal [facility] Glucose - FINGER STICKon Glucose [Mass/Vol] 200 mg/dL [facility] Other HbA1c (Bld) [Mass fraction]o n 03-06-2022 A1C HEMOGLOBIN [employer] Other A1C HEMOGLOBINon 10-28-2021 HbA1c (Bld) [Mass fraction] 7.0 % [facility] Other Glucose - FINGER STICKon Glucose [Mass/Vol] 110 mg/dL [facility] Other HbA1c (Bld) [Mass fraction]o n 10-28-2021 A1C HEMOGLOBIN [facility] Other A1C HEMOGLOBINon 07-04-2021 HbA1c (Bld) [Mass fraction] 6.6 % [facility] Other Glucose - FINGER STICKon Glucose [Mass/Vol] 110 mg/dL [facility] Other HbA1c (Bld) [Mass fraction]o n 07-04-2021 A1C HEMOGLOBIN [employer] Other A1C HEMOGLOBINon 11-21-2020 HbA1c (Bld) [Mass fraction] 6.0 % [facility] Other Glucose - FINGER STICKon Glucose [Mass/Vol] 98 mg/dL [facility] Other HbA1c (Bld) [Mass fraction]o n 11-21-2020 A1C HEMOGLOBIN [employer] Other Discharge Summaryon 09-26-19 Discharge Summary MR#: [id number] [place] [facility]. Name: Lesli Clay Admitted: 09/08/2016 Discharged: 09/15/2016 Date of : 1960 Physician: Que Blake M.D. DISCHARGE SUMMARYPRIMARY DIAGNOSIS: Right knee osteoarthritis.SECONDARY DIAGNOSES: None.HOSPITAL COURSE AND TREATMENT RENDERED: This is a 56-year-old female whohad right knee osteoarthritis, was refractory to treatment withconservative management. Options were discussed, and felt that she wouldbenefit from a right total knee arthroplasty. This procedure was done nick elective basis on 09/08/2016 and proceeded without complication.Postoperativ cameron, the patient was admitted for pain control and observation.Postoperative x-ray showed the hardware to be in good alignment. Thepatient had some difficulty postoperatively, complaining that her leg wasnumb from the previous nerve block. This eventually wore off, and shestarted working with physical therapy, but was slow to make gains. Thiscaused her having to be discharged to a facility. Then, she was dischargedon 09/15/2016 with the following instructions:1. Weightbearing as tolerated, right lower extremity.2. Diabetic diet.3. Follow up with Dr. Blake on September 25.4. Do not remove dressing.5. The patient is discharged on the following medications: Omeprazole, baclofen, Lovenox, Keflex, lisinopril, metformin, Pamelor, Wellbutrin, docusate, and Percocet.Electronically Signed by:Que Blake M.D. 10/05/2016 11:23 A Que Blake M.D. I have reviewed this discharge summary and confirmed the resident'sdocumentation. Please note that there may be additional documentation fromme. Date Dict: 09/24/2016/02:52 P/Que Cano M.D.Date Trans: 09/25/2016 08:08 A/mmoDN_JN:[id number] cc: Rosales Taylor M.D. [address] [facility] [address] [place] [facility] KNEE RIGHT 3 Son 7 KNEE RIGHT 3 [facility] [place] [id number] P atient Name: LESLI CLAY : 1960ex: FAge: Race: WhiteMRN: [id number]. Location: 84Patient Status: Date: 09/25/2016 8:15:00 AMCompleted Date: 09/25/2016 08:22 AMRequesting Provider: QUE BLAKE Attending Provider: Report Copy To: Signs & Symptoms: Z96.651 Presence of right artificial knee joint [id number]: AthenaComments: , , , Ordering Provider - QUE BLAKE MD , Exam: KNEE RIGHT 3 VWSAccession #: [id number] ======KNEE RIGHT 3 VWS 09/25/2016 8:22 AM EDT SIGNS AND SYMPTOMS: Z96.651 Presence of right artificial knee joint I10 TECHNOLOGIST COMMENTS: ortho follow rt knee replacement 09/08/2016 QUESTION FOR THE RADIOLOGIST: , , , Ordering Provider - QUE BLAKE MD , PROTOCOL: AP,Lateral and Tangential views were obtained. COMPARISON: Plain films September 08, 2016 FINDINGS: There is evidence of total right knee arthroplasty. No hardware complications. No changes in alignment. No evidence of fracture. There is resolution of subcutaneous emphysema and soft tissue swelling overlying the joint. IMPRESSION: Unchanged total right knee arthroplasty. There has been some resolution of soft tissue postoperative changes. Electronically signed by:Mindy Tomas. Transcribed by: [email or web address], User Resident: Electronically Signed by: MINDY TOMAS @ 09/25/2016 04:44 PM Normal [facility] Comment on above: Order Comment: , , = ========= , Ordering Provider - QUE BLAKE MD , Consultationon 09-21-2016 Consultation [id number] Date of Service: 09/20/2016 Room #: CAROLYN Birthdate: 1960 Referring Physician: Андрей is a 56-year-old female, she is a patient of Dr. Blake.CHIEF COMPLAINT: She presented to the emergency department with a chiefcomplaint of right knee incision and drainage, pain, and warmth.HISTORY OF PRESENT ILLNESS: This is a 56-year-old female, status postright TKA 2 weeks ago who has had significant wound drainage since thattime, which continues to soak multiple ABD pads per day. The patient alsocomplains of redness, warmth, and pain in the tissue surrounding theincision. The patient has been working with PT and has been using the rightlower extremity. She denies fevers or chills. She denies nausea andvomiting. The patient still takes Percocet 2 tablets every 4 hours. She iscurrently taking Keflex and has been taking Keflex since her surgery 2weeks ago.MEDICATIONS: The patient's medications include alprazolam, aripiprazole,baclofen, bupropion, lisinopril, hydrochlorothiazide, metformin,methocarbamol, nortriptyline, omeprazole, Percocet, as well as Keflex asstated before.ALLERGIES: The patient has no known drug allergies.PAST MEDICAL HISTORY: The patient has a history of hypertension, GERD,fibromyalgia, high cholesterol, obesity, and she has diabetes type 2.SOCIAL HISTORY: The patient is not a current smoker. She quit in 2010. Shedoes not use alcohol and she does not use any illicit drugs.FAMILY HISTORY: Significant for heart disease in her mother, but isotherwise noncontributory.REVIEW OF SYSTEMS: Include as stated in HPI, redness, swelling, pain, andwarmth of the right lower extremity surrounding the incision from the TKA 2weeks prior.PHYSICAL EXAMINATION: GENERAL: This is an obese female.VITAL SIGNS: Her vitals were stable within normal limits.LUNGS: Her lung efforts were normal.MUSCULOSKELETAL: Upon inspection of the right lower extremity, the patienthas significant soft tissue swelling surrounding the incision of the rightknee, the surrounding tissue is erythematous and warm to touch. Thedressing that was removed when lying at bedside, which had been appliedabout 3 hours previous had soak through with what appeared to beserosanguineous fluid. There is a small amount of seepage from the inferioraspect of the incision. The patient has limited knee motion in flexion dueto pain and swelling. She is able to extend the knee fully. It is stable tovarus and valgus stress. Her sensation to light touch is intact. L2 throughS1, the patient fires her quadriceps, hamstrings, gastrocsoleus, tibialisanterior, and extensor hallucis longus. Her dorsalis pedis pulse is strongon the right and equal bilaterally.NEUROLOGIC: The patient is A and O x3, and not in acute distress.LABORATORY DATA: Her current labs, her white blood cell count is 10.6, herhemoglobin is 10.3, her hematocrit is 31.4, platelets are 400, differentialof the white count her neutrophils are 71.8%, lymphocytes 19.8%, monocytes5.8%, eosinophils 2.1%, and basophils 0.5%. Sedimentation rate is 107.C-reactive protein is 28.5, with these are to be expected given her recentsurgery. Her sodium is 137, potassium is 4.0, chloride is 99, carbondioxide is 29, her BUN is 13, creatinine is 0.91, and her glucose is 151.IMAGING STUDIES: No imaging studies were performed at this time.PROBLEM LIST: This is a patient with significant postoperative swellingand prolonged drainage. The patient was sent home and told to follow up inclinic on Thursday of next week, September 23, 2016, with Dr. Blake. In [facility], she was placed in a hinged knee brace to prevent flexion of theknee. She was given renewal of Keflex. We prescribed Bynum for pain controland we applied an Armando wrap for edema control.Reviewed By:Desmond Mena MD 09/22/2016 08:26 AElectronically Signed by:Martin Fonseca MD 09/25/2016 03:22 P ___Martin Fonseca MD I was not present but assume all responsibility for the exam. NOTBILLABLEDate Dict: 09/21/2016/10:51 A/Desmond Mena MDDate Trans: 09/21/2016 11:52 A/deniseoDN_JN:[id number] cc: Rosales Taylor M.D. [address] [facility] [address] Normal [facility] BASIC METABOLIC PANELon Calcium 9.6 mg/dL Normal 8.6-10.3 [facility] Comment on above: Performed By: #### 0 0071 ####[facility] [place] [address], [facility] Chloride 99 mmol/L Normal 98-107 [facility] Comment on above: Performed By: #### 0 0071 ####[facility] [place] [address], [facility] CO2 29 mmol/L Normal 21-31 [facility] Comment on above: Performed By: #### 0 0071 ####[facility] [place] [address], [facility] Creatinine 0.91 mg/dL Normal 0.60-1.20 [facility] Comment on above: Performed By: #### 0 0071 ####[facility] [place] [address], [facility] eGFR (black) mL/min/{1.73_m2} Normal >60 [facility] Comment on above: Performed By: #### 0 0071 ####[facility] [facility] [place] [address], [facility] eGFR (non-black) mL/min/{1.73_m2} Normal >60 [facility] Comment on above: Performed By: #### 0 0071 ####[facility] [place] [address], [facility] Glucose mass conc 151 mg/dL High 70-100 [facility] Comment on above: Performed By: #### 0 0071 ####[facility] [facility] [place] [address], [facility] Potassium molar conc 4.0 mmol/L Normal 3.5-5.1 [facility] Comment on above: Performed By: #### 0 0071 ####[facility] [place] [address], [facility] Sodium 137 mmol/L Normal 136-145 [facility] Comment on above: Performed By: #### 0 0071 ####[facility] [place] [address], [facility] Urea nitrogen 13 mg/dL Normal 7-25 [facility] Comment on above: Performed By: #### 0 0071 ####[facility] C REACTIVE PROTEINon 017 C reactive protein (CRP) 28.5 mg/L High 0.0-7.0 [facility] Comment on above: Performed By: #### 0 0071 ####[facility] [facility].[address] CBC W/DIFFon 09-20-2016 Basophils Auto #/vol (Bld) 0.5 % Normal 0.0-2.0 [facility] Comment on above: Performed By: #### 0 0071 ####[place] [address] [facility].[address] Eosinophils/100 leukocytes 2.1 % Normal 0.0-5.0 [facility] Comment on above: Performed By: #### 0 0071 ####[facility] [facility].[address] Erythrocyte distribution width Auto Ratio (RBC) 17.1 % High 11.5-16.9 [facility] Comment on above: Performed By: #### 0 0071 ####[place] [address] [facility].[address] Erythrocytes (RBC) 3.39 mill/mm3 Low 3.50-5.50 [facility] Comment on above: Performed By: #### 0 0071 ####[facility] [facility].[address] Hematocrit (HCT) 31.4 % Low 36.0-48.0 [facility] Comment on above: Performed By: #### 0 0071 ####[place] [address] [facility].[address] Hemoglobin mass conc (Bld) 10.3 g/dL Low 12.0-15.0 [facility] Comment on above: Performed By: #### 0 0071 ####[facility] Lymphocytes/100 leukocytes 19.8 % Low 20.0-40.0 [facility] Comment on above: Performed By: #### 0 0071 ####[facility] [place] [address] MCH 30.3 pg Normal 24.0-32.0 [facility] Comment on above: Performed By: #### 0 0071 ####[place] [address] MCHC mass conc (RBC) 32.7 g/dL Normal 32.0-36.0 [facility] Comment on above: Performed By: #### 0 0071 ####[address] MCV 92.6 fL Normal 80.0-100.0 [facility] Comment on above: Performed By: #### 0 0071 ####[address] METHOD Normal [facility] Comment on above: Result Comment: Auto mated differential performedNormal RBC Morphology Performed By: #### 0 0071 ####[facility] [place] [address] MONOS 5.8 % Normal 2-8 [facility] Comment on above: Performed By: #### 0 0071 ####[address] Neutrophils/100 leukocytes 71.8 % High 50-70 [facility] Comment on above: Performed By: #### 0 0071 ####[place] [id number], [facility] PLAT CNT 400 Thou/mm3 Normal 100-400 [facility] Comment on above: Performed By: #### 0 0071 ####[facility] [place] [address], [facility] WBC (Leukocytes) 10.6 Thou/mm3 High 4.0-10.0 [facility] [facility] Comment on above: Performed By: #### 0 0071 ####[facility] [place] [address], [facility] SEDIMENTATION RATEon 017 SED RATE 107 mm/hr High 0-20 [facility] Comment on above: Performed By: #### 0 0071 ####[facility] [place] [address], [facility] POC GLUCOSE LABon 09-15-2016 Glucose mass conc 187 mg/dL High 70-100 [facility] Comment on above: Performed By: #### 0 0071 ####[facility] [facility] [place] [address], [facility] Glucose mass conc 153 mg/dL High 70-100 [facility] Comment on above: Performed By: #### 5 6101, [id number] ####[facility] [place] [address], [facility] POC GLUCOSE LABon 09-14-2016 Glucose mass conc 198 mg/dL High 70-100 [facility] Comment on above: Performed By: #### 5 6101, [id number] ####[facility] [facility] [place] [address], [facility] Glucose mass conc 188 mg/dL High 70-100 [facility] Comment on above: Performed By: #### 5 6101, 84762 ####[facility] [place] [address], [place] Glucose mass conc 192 mg/dL High 70-100 [facility] Comment on above: Performed By: #### 5 6100, 63287 ####[facility] [place] [address], [place] Glucose mass conc 155 mg/dL High 70-100 [facility] Comment on above: Performed By: #### 5 610, 85162 ####[facility] [place] [address], [place] POC GLUCOSE LABon 09-13-2016 Glucose mass conc 223 mg/dL High 70-100 [facility] Comment on above: Performed By: #### 5 6100, [id number] ####[facility] [place] [address], [place] Glucose mass conc 212 mg/dL High 70-100 [facility] Comment on above: Performed By: #### 5 6100, 62310 ####[facility] [place] [address], [place] Glucose mass conc 111 mg/dL High 70-100 [facility] Comment on above: Performed By: #### 5 610, 39127 ####[facility] [place] [address], [place] Glucose mass conc 199 mg/dL High 70-100 [facility] Comment on above: Performed By: #### 5 610, [id number] ####[facility] [place] [address], [place] Glucose mass conc 149 mg/dL High 70-100 [facility] Comment on above: Performed By: #### 5 610, 97436 ####[facility] [place] [address], [place] POC GLUCOSE LABon 09-12-2016 Glucose mass conc 205 mg/dL High 70-100 [facility] Comment on above: Performed By: #### 5 , [id number] ####[facility] [place] [address], [place] Glucose mass conc 132 mg/dL High 70-100 [facility] Comment on above: Performed By: #### 5 610, 87673 ####[facility] [place] [address], [place] Glucose mass conc 184 mg/dL High 70-100 [facility] Comment on above: Performed By: #### 5 6100, 03277 ####[facility] [place] [address], [place] Glucose mass conc 158 mg/dL High 70-100 [facility] Comment on above: Performed By: #### 5 6100, 94884 ####[facility] [place] [address], [place] POC GLUCOSE LABon 09-11-2016 Glucose mass conc 194 mg/dL High 70-100 [facility] Comment on above: Performed By: #### 5 6100, 90892 ####[facility] [place] [address], [place] Glucose mass conc 192 mg/dL High 70-100 [facility] Comment on above: Performed By: #### 5 6100, 44112 ####[facility] [place] [address], [place] Glucose mass conc 221 mg/dL High 70-100 [facility] Comment on above: Performed By: #### 5 610, 55395 ####[facility] [place] [address], [place] Glucose mass conc 147 mg/dL High 70-100 [facility] Comment on above: Performed By: #### 5 610, 49731 ####[facility] [place] [address], [facility] POC GLUCOSE LABon 09-10-2016 Glucose mass conc 224 mg/dL High 70-100 [facility] Comment on above: Performed By: #### 5 6101, 60258 ####[facility] [place] [address], [facility] Glucose mass conc 156 mg/dL High 70-100 [facility] Comment on above: Performed By: #### 1 0008 ####[facility] [place] [address], [facility] Glucose mass conc 240 mg/dL High 70-100 [facility] Comment on above: Performed By: #### 1 0008 ####[facility] [place] [address], [facility] Glucose mass conc 171 mg/dL High 70-100 [facility] Comment on above: Performed By: #### 1 0008 ####[facility] [place] [address], [facility] BASIC METABOLIC PANELon 08-17 Calcium 8.4 mg/dL Low 8.6-10.3 [facility] Comment on above: Order Comment: No: D o not add to previous draw Performed By: #### 1 0008 ####[facility] [place] [address], [facility] Chloride 99 mmol/L Normal 98-107 [facility] Comment on above: Order Comment: No: D o not add to previous draw Performed By: #### 1 0008 ####[facility] [place] [address], [facility] CO2 27 mmol/L Normal 21-31 [facility] Comment on above: Order Comment: No: D o not add to previous draw Performed By: #### 1 0008 ####[facility] [place] [address], [facility] Creatinine 1.11 mg/dL Normal 0.60-1.20 [facility] Comment on above: Order Comment: No: D o not add to previous draw Performed By: #### 1 0008 ####[facility] [place] [address], [facility] eGFR (black) mL/min/{1.73_m2} Normal >60 [facility] Comment on above: Order Comment: No: D o not add to previous draw Performed By: #### 1 0008 ####[facility] [place] [address], [facility] eGFR (non-black) 51 ml/min/1.73sq m Abnormal >60 [facility] Comment on above: Order Comment: No: D o not add to previous draw Performed By: #### 1 0008 ####[facility] [place] [address], [facility] Glucose mass conc 161 mg/dL High 70-100 [facility] Comment on above: Order Comment: No: D o not add to previous draw Performed By: #### 1 0008 ####[place] [address] [place] [address], [facility] Potassium molar conc 4.2 mmol/L Normal 3.5-5.1 [facility] Comment on above: Order Comment: No: D o not add to previous draw Performed By: #### 1 0008 ####[facility] [place] [address], [facility] Sodium 134 mmol/L Low 136-145 [facility] Comment on above: Order Comment: No: D o not add to previous draw Performed By: #### 1 0008 ####[facility] [place] [address], [facility] Urea nitrogen 24 mg/dL Normal 7-25 [facility] Comment on above: Order Comment: No: D o not add to previous draw Performed By: #### 1 0008 ####[facility] [facility].[address] CBC W/DIFFon 09-09-2016 Basophils Auto #/vol (Bld) 0.2 % Normal 0.0-2.0 [facility] Comment on above: Order Comment: No: D o not add to previous draw Performed By: #### 1 0008 ####[facility] Eosinophils/100 leukocytes 1.0 % Normal 0.0-5.0 [facility] Comment on above: Order Comment: No: D o not add to previous draw Performed By: #### 1 0008 ####[facility] Erythrocyte distribution width Auto Ratio (RBC) 16.9 % Normal 11.5-16.9 [facility] Comment on above: Order Comment: No: D o not add to previous draw Performed By: #### 1 0008 ####[facility] Erythrocytes (RBC) 3.31 mill/mm3 Low 3.50-5.50 [facility] Comment on above: Order Comment: No: D o not add to previous draw Performed By: #### 1 0008 ####[facility] [facility].[address] Hematocrit (HCT) 30.7 % Low 36.0-48.0 The [facility] Comment on above: Order Comment: No: D o not add to previous draw Performed By: #### 1 0008 ####[place] [address] Hemoglobin mass conc (Bld) 10.0 g/dL Low 12.0-15.0 [facility] Comment on above: Order Comment: No: D o not add to previous draw Performed By: #### 1 0008 ####[facility] [place] [address], [facility] Lymphocytes/100 leukocytes 25.6 % Normal 20.0-40.0 [facility] Comment on above: Order Comment: No: D o not add to previous draw Performed By: #### 1 0008 ####[facility] [place] [address], [facility] MCH 30.3 pg Normal 24.0-32.0 [facility] Comment on above: Order Comment: No: D o not add to previous draw Performed By: #### 1 0008 ####[facility] MCHC mass conc (RBC) 32.7 g/dL Normal 32.0-36.0 [facility] Comment on above: Order Comment: No: D o not add to previous draw Performed By: #### 1 0008 ####[facility] [place] [address], [facility] MCV 92.7 fL Normal 80.0-100.0 [facility] Comment on above: Order Comment: No: D o not add to previous draw Performed By: #### 1 0008 ####[facility] [place] [address], [facility] METHOD Normal [facility] Comment on above: Order Comment: No: D o not add to previous draw Result Comment: Auto mated differential performedNormal RBC Morphology Performed By: #### 1 0008 ####[facility] [place] [address], [facility] MONOS 6.9 % Normal 2-8 [facility] Comment on above: Order Comment: No: D o not add to previous draw Performed By: #### 1 0008 ####[facility] [place] [address], [place] Neutrophils/100 leukocytes 66.3 % Normal 50-70 [facility] Comment on above: Order Comment: No: D o not add to previous draw Performed By: #### 1 0008 ####[facility] [place] [address], [facility] PLAT CNT 304 Thou/mm3 Normal 100-400 The [facility] Comment on above: Order Comment: No: D o not add to previous draw Performed By: #### 1 0008 ####[facility] [place] [address], [facility] WBC (Leukocytes) 8.7 Thou/mm3 Normal 4.0-10.0 [facility] Comment on above: Order Comment: No: D o not add to previous draw Performed By: #### 1 0008 ####[facility] Operative Reporton 7 Operative Report MR#: [id number] [facility] Lesli Clay Room #: 6AB [id number] Discharge Date: Birthdate: 1960 OPERATIVE REPORTDATE OF SURGERY: 09/08/2016SURGEON: Que Blake M.D.SURGEON: Que Blake M.D.ASSISTANTS:1. Que Cano M.D.2. .PREOPERATIVE DIAGNOSIS: Right knee osteoarthritis.PROCEDURE: Right total knee arthroplasty.POSTOPERATIV E DIAGNOSIS: Right knee osteoarthritis.IMPLANTS: [employer]omet Vanguard PS open box size 65 mm femur. Size 71 posteriorstabilized tibial baseplate, 10 mm PS poly, 34 mm patellar poly.ANESTHESIA: General.BLOOD LOSS: Approximately 300 cc.DRAINS: None.SPECIMENS: None.PREOPERATIVE INDICATIONS: This is a 56-year-old female who had right kneeosteoarthritis, which was refractory to treatment with conservativemanagement. Options were discussed, the patient elected to proceed withright total knee arthroplasty, we felt that she would benefit from thisprocedure.DESCRIPTION OF PROCEDURE: The patient was identified in the preoperativeholding area by 2 identifiable markers, informed consent was obtained, thepatient understood all risks and benefits of the procedure and likes toproceed. Operative site was marked by the operating surgeons. The patientwas brought back to the operating theater and intubated in the supineposition. Nonsterile tourniquet was applied, antibiotics were given, thepatient's right leg was prepped and draped in the normal sterile fashion.Time-out was then done. The patient's leg was elevated and exsanguinatedto 300 mmHg.We then started by making our incision, which was approximately 10 cm inlength centered over the medial aspect of the patella. Sharp dissectionwas used to go through skin and subcutaneous tissue, and then used todevelop our medial skin flap. We had a good medial skin flap. We made ourmedial parapatellar arthrotomy without difficulty. After this was done, wedid our medial peel. We placed the leg in extension and we removed ourmedial retinaculum, suprapatellar fat, prepatellar fat pad, and then gentlydid a lateral release to be able to forrest the patella. After we felt thatwe achieved good soft tissue dissection, we put the knee into flexion,protected and the femur, lasting slightly medial about 1 cmanterior to the PCL, orienting our drill along the axis of the femur.After this was done, we then thoroughly aspirated the tunnel. Placed amedial lateral Homans to retract our collateral ligaments, and placed our 5degree valgus distal femoral cutting guide. The distal femoral cut wasmade. At this point, moved back to the tibia, both cruciates were removedand tibia was subluxate anteriorly and the MCL and ACL were removed. Anni placed our tibial guide, using 3 degree valgus cut, and taking 2 mmoff the medial tibial plateau. We then pinned our guide in place and madeour tibial cut without difficulty. We then checked our extension gap. Wefelt that the cut was accurate and that the knee was balanced in extension.I then put the back in flexion, and used our femoral sizer, which we sizedto 65 mm. We then drilled our holes, placed our 4 in 1 cutting block, madeour anterior, posterior, anterior chamfer, and posterior chamfer cuts.After this was done, we then checked our flexion gap and felt that we arestable in both medially and laterally in flexion. We then placed ourfemoral box cutting guide, and made our box cut without difficulty. Anni sized the tibia to about 71 mm. The placed our tibial guide, and madesure to externally rotate the tibia slightly, so in line withthe tibial tubercle. We pinned this in place, and then reamed and punchedour tibia. At this point, we placed our trials with 65 mm femur, 71 mmtibia, and a 10 mm poly. We felt that the knee was stable both inextension and flexion, medially as well as laterally. After this was done.We then turned our attention to the patella. Freehand cut was made of thepatella, and we felt that a 34% patella button was a good fit, this wasdrilled. The femur, the tibia, and patella were then irrigated, and ourtibial component, femoral component, and patellar component were placed,taking care to remove excess cement. We then placed our trial poly, andheld the knee in extension for about 15 minutes. After this was done withthe tourniquet down, coagulated any bleeders, and removed our tibial trial,and used our osteotome to remove any pieces of cement that were in thenotch. After this was done, we replaced our trial, and we felt that againvia good balancing we achieved full extension, and that the patella wastracking well. We then took trial out and placed our 10 mm poly andlocking bar in place. Again, testing that would need to be well balancedin full extension, and good patellar tracking. We then closed arthrotomyusing #2 Vicryl, 0 running Vicryl for deep fat layer, and 2-0 Vicryl forskin, for subcutaneous layer, followed by 3-0 Biosyn for the skin. Glueand sterile dressing were applied in flexion. The patient was thenextubated and discharged to postoperative care unit in stable condition.All needle and sponge counts were correct.Dr. Blake was present for all critical portions of the procedure wasavailable for questions throughout.Electronically Signed by:Que Blake M.D. 09/13/2016 08:20 A Que Blake M.D. I was present for the todd and critical portions and I was otherwiseimmediately available to assist. Date Dict: 09/08/2016/08:19 P/Que Cano M.D.Date Trans: 09/09/2016 04:17 A/[id number] cc: Rosales Taylor M.D. [address] [facility] [address] Normal [facility] POC GLUCOSE LABon 09-09-2016 Glucose mass conc 229 mg/dL High 70-100 [facility] Comment on above: Performed By: #### 1 0008 ####[facility] [facility] [place] [address], [place] Glucose mass conc 159 mg/dL High 70-100 [facility] Comment on above: Performed By: #### 1 0008 ####[facility] [facility] [place] [address], [place] Glucose mass conc 182 mg/dL High 70-100 [facility] Comment on above: Performed By: #### 1 0008 ####[facility] [facility] [place] [address], [place] Glucose mass conc 159 mg/dL High 70-100 [facility] Comment on above: Performed By: #### 1 0008 ####[facility] [place] [address], [place] Glucose mass conc 172 mg/dL High 70-100 [facility] Comment on above: Performed By: #### 1 0008 ####[facility] [place] [address], [place] POC GLUCOSE LABon 09-08-2016 Glucose mass conc 175 mg/dL High 70-100 [facility] Comment on above: Performed By: #### 8 5499 ####[facility] [facility] [place] [address], [facility] Glucose mass conc 165 mg/dL High 70-100 [facility] Comment on above: Performed By: #### 8 5499 ####[facility] [facility] [place] [place] [address], [facility] Glucose mass conc 173 mg/dL High 70-100 [facility] Comment on above: Performed By: #### 8 5499 ####[facility] [place] [address], [facility] PORTABLE KNEE RIGHT 2 Son 09-08-2016 PORTABLE KNEE RIGHT 2 [facility] [id number] [place] [id number] P atient Name: LESLI CLAY : 1960ex: FAge: Race: WhiteMRN: [id number]. Location: OUTPPatient Status: OVisit #: [id number] Date: 09/08/2016 2:05:00 PMCompleted Date: 09/08/2016 02:45 PMRequesting Provider: QUE CANO Attending Provider: QUE BLAKE Report Copy To: Signs & Symptoms: Pain ( specify Location)History: Patient history not availableComments: Hardware Evaluation, please do in PACUExam: PORTABLE KNEE RIGHT 2 VWSAccession #: [id number] ======PORTABLE KNEE RIGHT 2 VWS 09/08/2016 2:45 PM EDT SIGNS AND SYMPTOMS: Pain ( specify Location) TECHNOLOGIST COMMENTS: post op right knee QUESTION FOR THE RADIOLOGIST: Hardware Evaluation, please do in PACU PROTOCOL: AP(PA) and Lateral views were obtained. COMPARISON: December 13, 2014 FINDINGS: Soft tissues:Postoperative changes of swelling and air Bones:Postoperative change Joints:Right total knee arthroplasty with femoral component in slightly extended orientation IMPRESSION: Status post right total knee arthroplasty Electronically signed by:Joan Cormier. Transcribed by: [email or web address], User Resident: Electronically Signed by: JOAN CORMIER @ 09/08/2016 02:48 PM Normal [facility] Comment on above: Order Comment: Hardw are Evaluation, please do in PACU APTTon 08-25-2016 aPTT 33.0 s Normal 25.0-35.0 [facility] Comment on above: Result Comment: ALL RESULTS MUST BE INTERPRETED WITH RESPECT TO BLOOD DRAWING ARTIFACTOR DILUTION ERROR OF ANTICOAGULANT AT THE TIME OF SAMPLING.THE APTT SHOULD NOT BE USED TO MONITOR UNFRACTIONATED HEPARIN THERAPY, THIS LABORATORY NO LONGER HAS AN ESTABLISHED THERAPEUTIC RANGE BASEDON THE APTT. IT IS RECOMMENDED THAT THE [facility] - HEPARIN ASSAY (ANTI-XAACTIVITY) BE USED FOR THIS PURPOSE. Performed By: #### 5 6101, 92954 ####[facility] [facility] [place] [address], [facility] BASIC METABOLIC PANELon - Calcium 9.9 mg/dL Normal 8.6-10.3 [facility] Comment on above: Performed By: #### 0 0071 ####[facility] [place] [address], [facility] Chloride 96 mmol/L Low 98-107 [facility] Comment on above: Performed By: #### 0 0071 ####[facility] [place] [address], [facility] CO2 29 mmol/L Normal 21-31 [facility] Comment on above: Performed By: #### 0 0071 ####[facility] [place] [address], [facility] Creatinine 0.94 mg/dL Normal 0.60-1.20 [facility] Comment on above: Performed By: #### 0 0071 ####[facility] [place] [address], [facility] eGFR (black) mL/min/{1.73_m2} Normal >60 [facility] Comment on above: Performed By: #### 0 0071 ####[facility] [facility] [place] [address], [facility] eGFR (non-black) mL/min/{1.73_m2} Normal >60 [facility] Comment on above: Performed By: #### 0 0071 ####[facility] [facility] Glucose mass conc 128 mg/dL High 70-100 [facility] Comment on above: Performed By: #### 0 0071 ####[place] [address] [facility].[address] Potassium molar conc 4.0 mmol/L Normal 3.5-5.1 [facility] Comment on above: Performed By: #### 0 0071 ####[facility] [facility].[address] Sodium 135 mmol/L Low 136-145 [facility] Comment on above: Performed By: #### 0 0071 ####[facility] [facility] [place] [address], [facility] Urea nitrogen 15 mg/dL Normal 7-25 [facility] Comment on above: Performed By: #### 0 0071 ####[facility] [place] [address], [facility] CBC W/DIFFon 08-25-2016 Basophils Auto #/vol (Bld) 0.2 % Normal 0.0-2.0 [facility] Comment on above: Performed By: #### 5 0103 ####[facility] [facility] [place] [address], [facility] [facility] Eosinophils/100 leukocytes 1.6 % Normal 0.0-5.0 [facility] Comment on above: Performed By: #### 5 0103 ####[facility] Erythrocyte distribution width Auto Ratio (RBC) 16.9 % Normal 11.5-16.9 [facility] Comment on above: Performed By: #### 5 3 ####[facility] Erythrocytes (RBC) 4.18 mill/mm3 Normal 3.50-5.50 [facility] Comment on above: Performed By: #### 5 0103 ####[facility] [facility].[address] Hematocrit (HCT) 38.2 % Normal 36.0-48.0 [facility] Comment on above: Performed By: #### 5 3 ####[facility] [facility].[address] Hemoglobin mass conc (Bld) 12.5 g/dL Normal 12.0-15.0 [facility] Comment on above: Performed By: #### 5 3 ####[facility] [facility] [place] [address], [facility] Lymphocytes/100 leukocytes 21.4 % Normal 20.0-40.0 [facility] Comment on above: Performed By: #### 5 3 ####[facility] [place] [address], [facility] MCH 29.9 pg Normal 24.0-32.0 [facility] Comment on above: Performed By: #### 5 0103 ####[facility] [place] [address], [facility] MCHC mass conc (RBC) 32.7 g/dL Normal 32.0-36.0 [facility] Comment on above: Performed By: #### 5 0103 ####[facility] [place] [address], [facility] MCV 91.4 fL Normal 80.0-100.0 [facility] Comment on above: Performed By: #### 5 0103 ####[facility] [place] [address], [facility] METHOD Normal [facility] Comment on above: Result Comment: Auto mated differential performedNormal RBC Morphology Performed By: #### 5 0103 ####[facility] [facility].[address] MONOS 5.2 % Normal 2-8 [facility] Comment on above: Performed By: #### 5 0103 ####[facility] Neutrophils/100 leukocytes 71.6 % High 50-70 [facility] Comment on above: Performed By: #### 5 0103 ####[facility] [place] [address], [facility] PLAT CNT 351 Thou/mm3 Normal 100-400 [facility] Comment on above: Performed By: #### 5 0103 ####[facility] [place] [address], [facility] WBC (Leukocytes) 12.0 Thou/mm3 High 4.0-10.0 [facility] Comment on above: Performed By: #### 3 ####[facility] PROTHROMBIN TIMEon 7 INR Coag RelTime (PPP) 0.97 {INR} Normal 0.91-1.16 [facility] Comment on above: Result Comment: ACCC P RECOMMENDED INR FOR WARFARIN THERAPY CONDITION INRPROPHYLAXIS OF VENOUS THROMBOSIS 2-3(HIGH-RISK SURGERY)TREATMENT OF VENOUS THROMBOSIS 2-3TREATMENT OF PULMONARY EMBOLISM 2-3PREVENTION OF SYSTEMIC EMBOLISM: 2-3 ACUTE MYOCARDIAL INFARCTION TISSUE HEART VALVES VALVULAR HEART DISEASE ATRIAL FIBRILLATION RECURRENT SYSTEMIC EMBOLISMMECHANICAL HEART VALVE 2.5-3.5 FROM: ORAL ANTICOAGULANTS. MECHANISM OF ACTION, CLINICALEFFECTIVENESS, AND OPTIMAL THERAPEUTIC RANGE. [id number]. Performed By: #### 5 6101, [id number] ####[facility] [facility].[address] Prothrombin time (PT) Coag time (PPP) 12.9 s Normal 12.3-14.8 [facility] Comment on above: Result Comment: ALL RESULTS MUST BE INTERPRETED WITH RESPECT TO BLOOD DRAWING ARTIFACTOR DILUTION ERROR OF ANTICOAGULANT AT THE TIME OF SAMPLING. Performed By: #### 5 6101, [id number] ####[facility] [facility] [place] [address], [facility] TYPE AND SCREENon 08-25-2016 ABO INTERPRETATION O Normal [facility] Comment on above: Performed By: #### 6 2586 ####[facility] [facility] [place] [address], [facility] ANTIBODY SCREEN Negative Normal The [facility] Comment on above: Performed By: #### 6 2586 ####[facility] [facility] [place] [place] [address], [facility] RH INTERPRETATION Positive Normal The [facility] Comment on above: Performed By: #### 6 2586 ####[facility] [facility] [place] [place] [address], [place] URINALYSISon 08-25-2016 Bilirubin (total) Negative Normal NEGATIVE [facility] Comment on above: Performed By: #### 1 0008 ####[facility] [facility] [place] [place] [address], [facility] BLOOD MODERATE Abnormal NEGATIVE [facility] Comment on above: Performed By: #### 1 0008 ####[facility] [facility] [place] [place] [address], [place] EPIS MOD Abnormal FEW [facility] Comment on above: Performed By: #### 1 0008 ####[facility] [facility] [place] [address], [facility] Erythrocytes (RBC) 3-5 Abnormal 0-0 [facility] Comment on above: Performed By: #### 1 0008 ####[facility] [facility] [place] [address], [place] Glucose mass conc Negative Normal NEGATIVE The [facility] Comment on above: Performed By: #### 1 0008 ####[facility] [facility] [place] [place] [address], [place] KETONE Negative Normal NEGATIVE [facility] Comment on above: Performed By: #### 1 0008 ####[place] [id number] [facility] [place] [address], [place] LEUK ZEYNEP TRACE Abnormal NEGATIVE [facility] Comment on above: Performed By: #### 1 0008 ####[address] [place] [address], [facility] pH of blood 7.0 [pH] Normal 5.0-8.0 [facility] Comment on above: Performed By: #### 1 0008 ####[facility] [facility] [place] [address], [facility] Protein Negative Normal NEGATIVE [facility] Comment on above: Performed By: #### 1 0008 ####[facility] [facility] [place] [address], [facility] SPEC GRAV 1.006 Low 1.015-1.020 [facility] Comment on above: Performed By: #### 1 0008 ####[facility] [facility] [place] [address], [facility] Urine, appearance CLEAR Normal CLEAR The [facility] Comment on above: Performed By: #### 1 0008 ####[place] [id number] [facility] [place] [address], [facility] Urine, bacteria in sediment MANY Abnormal NONE SEEN [facility] Comment on above: Performed By: #### 1 0008 ####[facility] [facility] [place] [address], [facility] Urine, color STRAW Abnormal YELLOW [facility] Comment on above: Performed By: #### 1 0008 ####[facility] [facility] [place] [address], [facility] Urine, nitrite presence Negative Normal NEGATIVE [facility] Comment on above: Performed By: #### 1 0008 ####[facility] [facility] [place] [address], [facility] WBC UA 11-20 Abnormal 0-0 [facility] Comment on above: Performed By: #### 1 0008 ####[facility] [facility].[address] Vital Signs Date Time Vital Sign Value Performing Clinician Facility 02-03-2023 08:45-0500 Body height 160.02 cm Lili Scally Other [facility] Other 02-03-2023 08:45-0500 Body mass index (BMI) [Ratio] 52.61 kg/m2 Lili Scally Other [facility] Other 02-03-2023 08:45-0500 Body weight 134.72 kg Lili Scally Other [facility] Other 02-03-2023 08:45-0500 Diastolic blood pressure Lili Scally Other [facility] Other 02-03-2023 08:45-0500 Respiratory rate 20 /min Lili Scally Other [facility] Other 02-03-2023 08:45-0500 SaO2% (BldA) [Mass fraction] 94 % Lili Scally Other [facility] Other 02-03-2023 08:45-0500 Systolic blood pressure 144 mm[Hg] Lili Scally Other [facility] Other 11-26-2022 09:45-0400 Body height 160.02 cm Lili Scally Other [facility] Other 11-26-2022 09:45-0400 Body mass index (BMI) [Ratio] 51.37 kg/m2 Lili Scally Other [facility] Other 11-26-2022 09:45-0400 Body weight 131.54 kg Lili Scally Other [facility] Other 11-26-2022 09:45-0400 Diastolic blood pressure Lili Airamly Other [facility] Other 11-26-2022 09:45-0400 Respiratory rate 20 /min Lili Airamly Other [facility] Other 11-26-2022 09:45-0400 SaO2% (BldA) [Mass fraction] 96 % Lili Airamly Other [facility] Other 11-26-2022 09:45-0400 Systolic blood pressure 124 mm[Hg] Lili Scally Other [facility] Other 11-25-2022 09:20-0400 Body height 160.02 cm Stoney Turner Other [facility] Other 11-25-2022 09:20-0400 Body mass index (BMI) [Ratio] 52.07 kg/m2 Stoney Turner Other [facility] Other 11-25-2022 09:20-0400 Body weight 133.36 kg Stoney Turner Other [facility] Other 10-30-2022 11:18-0400 Diastolic blood pressure 81 mm[Hg] DO Judith Amanda Work Phone: [facility] 10-30-2022 11:18-0400 Heart rate 94 /min DO Judith Amanda Work Phone: [facility] 10-30-2022 11:18-0400 Respiratory rate 18 /min DO Judith Amanda Work Phone: [facility] 10-30-2022 11:18-0400 SaO2% (BldA) [Mass fraction] 96 % DO Judith Amanda Work Phone: [facility] 10-30-2022 11:18-0400 Systolic blood pressure 159 mm[Hg] DO Judith Amanda Work Phone: [facility] 10-30-2022 09:52-0400 Body height 160.02 cm DO Judith Amanda Work Phone: [facility] 10-30-2022 09:52-0400 Body weight 126.55 kg DO Judith Amanda Work Phone: [facility] 10-09-2022 10:40-0400 Body height 160.02 cm [email or web address] Other [facility] Other 10-09-2022 10:40-0400 Body mass index (BMI) [Ratio] 52.07 kg/m2 [employer] Other [facility] Other 10-09-2022 10:40-0400 Body weight 133.36 kg [employer] Other [facility] Other 10-09-2022 10:40-0400 Diastolic blood pressure 88 mm[Hg] [employer] Other [facility] Other 10-09-2022 10:40-0400 Systolic blood pressure 154 mm[Hg] [employer] Other [facility] Other 10-03-2022 09:15-0400 Body height 160.02 cm Lili Scally Other [facility] Other 10-03-2022 09:15-0400 Body mass index (BMI) [Ratio] 52.09 kg/m2 Lili Scally Other [facility] Other 10-03-2022 09:15-0400 Body weight 133.4 kg Lili Scally Other [facility] Other 10-03-2022 09:15-0400 Diastolic blood pressure 88 mm[Hg] Lili Scally Other [facility] Other 10-03-2022 09:15-0400 Respiratory rate 20 /min Lili Scally Other [facility] Other 10-03-2022 09:15-0400 SaO2% (BldA) [Mass fraction] 65 % Lili Scally Other [facility] Other 10-03-2022 09:15-0400 Systolic blood pressure 143 mm[Hg] Lili Scally Other [facility] Other 09-19-2022 13:49-0400 Diastolic blood pressure 109 mm[Hg] DO Kalie Rumschlag Work Phone: [facility] 09-19-2022 13:49-0400 Heart rate 94 /min DO Kalie Rumschlag Work Phone: [facility] 09-19-2022 13:49-0400 Respiratory rate 20 /min DO Aklie Rumschlag Work Phone: [facility] 09-19-2022 13:49-0400 SaO2% (BldA) [Mass fraction] 96 % DO Kalie Rumschlag Work Phone: [facility] 09-19-2022 13:49-0400 Systolic blood pressure 209 mm[Hg] DO Kalie Rumschlag Work Phone: [facility] 09-19-2022 13:42-0400 Body height 162.56 cm DO Kalie Rumschlag Work Phone: [facility] 09-19-2022 13:42-0400 Body weight 124.73 kg DO Kalie Kasper Work Phone: [facility] 08-12-2022 09:40-0400 Body height 160.02 cm [employer] Other [facility] Other 08-12-2022 09:40-0400 Body mass index (BMI) [Ratio] 50.62 kg/m2 [employer] Other [facility] Other 08-12-2022 09:40-0400 Body weight 129.64 kg [employer] Other [facility] Other 08-12-2022 09:40-0400 Diastolic blood pressure 86 mm[Hg] [employer] Other [facility] Other 08-12-2022 09:40-0400 Systolic blood pressure 150 mm[Hg] [employer] Other [facility] Other 08-01-2022 09:15-0400 Body height 160.02 cm Lili Scally Other [facility] Other 08-01-2022 09:15-0400 Body mass index (BMI) [Ratio] 50.62 kg/m2 Lili Scally Other [facility] Other 08-01-2022 09:15-0400 Body weight 129.64 kg Lili Scally Other [facility] Other 08-01-2022 09:15-0400 Diastolic blood pressure 84 mm[Hg] Lili Scally Other [facility] Other 08-01-2022 09:15-0400 Respiratory rate 18 /min Lili Scally Other [facility] Other 08-01-2022 09:15-0400 SaO2% (BldA) [Mass fraction] 95 % Lili Scally Other [facility] Other 08-01-2022 09:15-0400 Systolic blood pressure 130 mm[Hg] Lili Scally Other [facility] Other 06-06-2022 10:45-0400 Body height 160.02 cm Lili Scally Other [facility] Other 06-06-2022 10:45-0400 Body mass index (BMI) [Ratio] 50.43 kg/m2 Lili Scally Other [facility] Other 06-06-2022 10:45-0400 Body weight 129.14 kg Lili Scally Other [facility] Other 06-06-2022 10:45-0400 Diastolic blood pressure 76 mm[Hg] Lili Scally Other [facility] Other 06-06-2022 10:45-0400 Respiratory rate 18 /min Lili Scally Other [facility] Other 06-06-2022 10:45-0400 SaO2% (BldA) [Mass fraction] 96 % Lili Scally Other [facility] Other 06-06-2022 10:45-0400 Systolic blood pressure 131 mm[Hg] Lili Scally Other [facility] Other 03-06-2022 14:45-0500 Body height 160.02 cm Lili Scally Other [facility] Other 03-06-2022 14:45-0500 Body mass index (BMI) [Ratio] 46.81 kg/m2 Lili Scally Other [facility] Other 03-06-2022 14:45-0500 Body weight 119.89 kg Lili Scally Other [facility] Other 03-06-2022 14:45-0500 Diastolic blood pressure 72 mm[Hg] Lili Scally Other [facility] Other 03-06-2022 14:45-0500 Respiratory rate 18 /min Lili Scally Other [facility] Other 03-06-2022 14:45-0500 SaO2% (BldA) [Mass fraction] 96 % Lili Scally Other [facility] Other 03-06-2022 14:45-0500 Systolic blood pressure 112 mm[Hg] Lili Scally Other [facility] Other 10-28-2021 11:15-0400 Body height 160.02 cm Lili Scally Other [facility] Other 10-28-2021 11:15-0400 Body mass index (BMI) [Ratio] 45.49 kg/m2 Lili Scally Other [facility] Other 10-28-2021 11:15-0400 Body weight 116.48 kg Lili Scally Other [facility] Other 10-28-2021 11:15-0400 Diastolic blood pressure 83 mm[Hg] Lili Scally Other [facility] Other 10-28-2021 11:15-0400 Respiratory rate 18 /min Lili Scally Other [facility] Other 10-28-2021 11:15-0400 SaO2% (BldA) [Mass fraction] 97 % Lili Scally Other [facility] Other 10-28-2021 11:15-0400 Systolic blood pressure 133 mm[Hg] Lili Scally Other [facility] Other 07-04-2021 09:15-0400 Body height 160.02 cm Lili Scally Other [facility] Other 07-04-2021 09:15-0400 Body mass index (BMI) [Ratio] 45.79 kg/m2 Lili Scally Other [facility] Other 07-04-2021 09:15-0400 Body weight 117.26 kg Lili Scally Other [facility] Other 07-04-2021 09:15-0400 Diastolic blood pressure 83 mm[Hg] Lili Scally Other [facility] Other 07-04-2021 09:15-0400 Respiratory rate 18 /min Lili Scally Other [facility] Other 07-04-2021 09:15-0400 SaO2% (BldA) [Mass fraction] 96 % Lili Scally Other [facility] Other 07-04-2021 09:15-0400 Systolic blood pressure 125 mm[Hg] Lili Burgos Other [facility] Other 11-21-2020 10:30-0400 Body height 160.02 cm Clifford Munoz Jr. Other [facility] Other 11-21-2020 10:30-0400 Body mass index (BMI) [Ratio] 46.97 kg/m2 Clifford Munoz Jr. Other [facility] Other 11-21-2020 10:30-0400 Body weight 120.29 kg Clifford Munoz Jr. Other [facility] Other 11-21-2020 10:30-0400 Diastolic blood pressure 76 mm[Hg] Clifford Munoz Jr. Other [facility] Other 11-21-2020 10:30-0400 Respiratory rate 18 /min Clifford Munoz Jr. Other [facility] Other 11-21-2020 10:30-0400 SaO2% (BldA) [Mass fraction] 97 % Clifford Munoz Jr. Other [facility] Other 11-21-2020 10:30-0400 Systolic blood pressure 123 mm[Hg] Clifford Munoz Jr. Other [facility] Other Encounters Encounter Date Encounter Type Care Provider Facility Start: 02-10-2023 End: 02-10-2023 ambulatory JUDITH NEWMAN Not Available Start: 02-03-2023 (DM) Diabetes [facility]bert [facility] Start: 02-03-2023 End: 02-03-2023 ambulatory Kalie Matthewflavia [facility] Other Start: 01-26-2023 End: 01-26-2023 ambulatory Lili Burgos Other [facility] Other Start: 01-26-2023 Telephone encounter Lili Airamwinston [facility] Start: 01-15-2023 End: 01-15-2023 ambulatory BLANE Nunes AMADA Not Available Start: 01-15-2023 End: 01-15-2023 ambulatory JUDITH G AMANDA Not Available Start: 01-02-2023 End: 01-02-2023 ambulatory Lili Aubrey Other [facility] [employer] Other Start: 01-02-2023 Telephone encounter Lili Airamiwnston Bello [facility] Start: 12-31-2022 End: 12-31-2022 ambulatory JUDITH G AMANDA Not Available Start: 11-26-2022 (DM) Diabetes [facility]hebert [facility] Start: 11-26-2022 End: 11-26-2022 ambulatory Lili Burgos Other [facility] Other Start: 11-25-2022 End: 11-25-2022 ambulatory Stoney Turner Other [facility] Other Start: 11-25-2022 Office outpatient ne w 30 minutes Stoney Turner [facility] Start: 11-12-2022 End: 11-12-2022 ambulatory Lili Aubrey Other [facility] Other Start: 11-12-2022 Telephone encounter Lililillian Burgos [facility] Start: 10-30-2022 End: 10-30-2022 ambulatory Martine Tobias Facility:[facility] Start: 10-30-2022 End: 10-30-2022 Admission to same day surgery center DO Judith Amanda Work Phone: [facility] [place] Work Phone: Start: 10-30-2022 End: 10-30-2022 ambulatory DO Judith G Amanda Work Phone: [facility] Work Phone: Start: 10-09-2022 End: 10-09-2022 ambulatory Martine Jatinder Other [facility] Other Start: 10-09-2022 Office outpatient visit 25 minutes Martine Tobias [facility] Start: 10-07-2022 End: 10-07-2022 ambulatory Martien Tobias Facility:[facility] Start: 10-07-2022 End: 10-07-2022 ambulatory DO Judith G Amanda Work Phone: [facility] Work Phone: Start: 10-07-2022 End: 10-07-2022 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 procedure DO Judith Amanda Work Phone: [facility] Work Phone: Start: 10-03-2022 (DM) Diabetes Lili Se[facility] Start: 10-03-2022 End: 10-03-2022 ambulatory Lili Burgos Other [facility] [employer] Other Start: 10-03-2022 Registered Recurring DO Judith Amanda Work Phone: [facility] Work Phone: Start: 09-26-2022 End: 09-26-2022 ambulatory Lili Burgos Other [place] [employer] Other Start: 09-26-2022 Telephone encounter Lili matthew [facility] Start: 09-19-2022 End: 09-19-2022 ambulatory Martine Tobias Facility:[facility] Start: 09-19-2022 End: 09-19-2022 ambulatory DO Kalie Rumschlag Work Phone: [facility] Work Phone: Start: 09-19-2022 End: 09-19-2022 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 procedure DO Kalie Rumschlag Work Phone: [facility] [place] Work Phone: Start: 08-18-2022 End: 08-18-2022 ambulatory Martine Tobias Facility:[facility] Start: 08-18-2022 End: 08-18-2022 ambulatory DO Kalie Rumschlag Work Phone: [facility] Work Phone: Start: 08-18-2022 End: 08-18-2022 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 procedure DO Kalie Rumschlag Work Phone: [facility] [place] Work Phone: Start: 08-12-2022 End: 08-12-2022 ambulatory Martine Tobias Other [facility] Other Start: 08-12-2022 Office outpatient ne w 45 minutes Martine Tobias [facility] Start: 08-12-2022 Telephone encounter Lili [facility]thew [facility] Start: 08-05-2022 End: 08-05-2022 ambulatory Lili Burgos Other [facility] Other Start: 08-05-2022 Telephone encounter Lili matthew [facility] Start: 08-01-2022 (DM) Diabetes Lili quach [facility] Start: 08-01-2022 End: 08-01-2022 ambulatory Lili Burgos Other [facility] Other Start: 08-01-2022 Registered Recurring DO Kalie Kasper Work Phone: [facility] Work Phone: Start: 07-22-2022 End: 07-22-2022 ambulatory Lili Burgos Other [facility] Other Start: 07-22-2022 Telephone encounter Lili Aubrey [facility] [facility] [facility] Start: 07-09-2022 End: 07-09-2022 ambulatory Lili Scally Other [facility] Other Start: 07-09-2022 Telephone encounter Lili Aubrey [facility] Start: 07-01-2022 End: 07-02-2022 [facility] Facility:[facility] Start: 06-20-2022 End: 06-21-2022 [facility] Facility: Start: 06-16-2022 End: 06-16-2022 ambulatory Lililillian Burgos Other [facility] Other Start: 06-16-2022 Telephone encounter Lili Bello [place] [facility] Start: 06-06-2022 (DM) Diabetes Lili Storeyram[facility] Start: 06-06-2022 End: 06-06-2022 ambulatory Lili Airamly Other [facility] Other Start: 06-03-2022 End: 06-03-2022 ambulatory NARENDRANATH LAKSHMIPATHY . Facility:[facility] Start: 05-15-2022 End: 05-16-2022 [facility] Facility:[facility] Start: 05-13-2022 End: 05-13-2022 ambulatory Lili Airamly Other [facility] Other Start: 05-13-2022 Telephone encounter Lili Scally [facility] [place] [facility] Start: 04-14-2022 End: 04-14-2022 ambulatory Lili Scally Other [facility] Other Start: 04-14-2022 Telephone encounter Lili Scally F [facility] Start: 04-03-2022 End: 04-03-2022 ambulatory Lili Scally Other [facility] Other Start: 04-03-2022 Telephone encounter Lili Scally F [facility] Start: 03-24-2022 End: 03-24-2022 ambulatory Lili Scally Other [facility] Other Start: 03-24-2022 Telephone encounter Lili Scally F [facility] Start: 03-21-2022 End: 03-21-2022 ambulatory Lili Scally Other [facility] Other Start: 03-21-2022 Telephone encounter Lili Scally [facility] Start: 03-06-2022 (DM) Diabetes Lili Scally [facility] Start: 03-06-2022 End: 03-07-2022 ambulatory [facility] Other Start: 02-13-2022 End: 02-14-2022 [facility] Facility:[facility] Start: 12-31-2021 End: 12-31-2021 ambulatory Lili Scally Other [facility] Other Start: 12-31-2021 Telephone encounter Lili Scally [facility] Start: 12-11-2021 [facility] Facility:[facility] Start: 11-20-2021 End: 11-20-2021 ambulatory Lili Scally Other [facility] Other Start: 11-20-2021 Telephone encounter Lili Scally F [facility] Start: 11-06-2021 End: 11-07-2021 [facility] Facility: Start: 10-28-2021 (DM) Diabetes Lili Scally [facility] Start: 10-28-2021 End: 10-28-2021 ambulatory Lili Airamly Other [facility] Other Start: 09-20-2021 End: 09-20-2021 ambulatory Lili Scally Other [facility] Other Start: 09-20-2021 Telephone encounter Lili Airamly [facility] Start: 09-12-2021 End: 09-12-2021 ambulatory Lili Airamly Other [facility] Other Start: 09-12-2021 Telephone encounter Lili Airamly [facility] Start: 08-01-2021 End: 08-02-2021 [facility] Facility: Start: 07-22-2021 End: 07-22-2021 ambulatory Lili Scally Other [facility] Other Start: 07-22-2021 Telephone encounter Lili Airamly [facility] Start: 07-08-2021 End: 07-08-2021 ambulatory Lili Scally Other [facility] Other Start: 07-08-2021 Telephone encounter Lili Airamly [facility] [place] [facility] Start: 07-04-2021 (DM) Diabetes Lili Scally [facility] Start: 07-04-2021 End: 07-04-2021 ambulatory Lili Scally Other [facility] Other Start: 06-20-2021 End: 06-20-2021 ambulatory Clifford Munoz Other [facility] Other Start: 06-20-2021 Telephone encounter Clifford Garciadichristian Bello [facility] Start: 04-19-2021 End: 04-19-2021 ambulatory Clifford Munoz Other [facility] Other Start: 04-19-2021 Telephone encounter Clifford Garciadichristian Bello [facility] Start: 03-28-2021 End: 03-28-2021 ambulatory Clifford Munoz Other [facility] Other Start: 03-28-2021 Telephone encounter Clifford Bello [facility] Start: 01-29-2021 End: 01-29-2021 ambulatory Clifford Munoz Jr. Other [facility] Other Start: 01-29-2021 Telephone encounter [facility] Start: 11-27-2020 Telephone encounter [facility] Start: 11-21-2020 (DM) Diabetes Clifford Munoz Jr. [facility] Start: 09-25-2016 End: 09-26-2016 Ambulatory QUE Merle BHUPENDRA [facility] Start: 09-20-2016 End: 09-20-2016 Emergency department patient visit LAUREN CARDENAS Facility:[facility] Start: 09-08-2016 End: 09-15-2016 Evaluation and management of inpatient QUE BLAKE Facility:[facility] Procedures Date Procedure Procedure Detail Performing Clinician Start: 10-30-2022 Lumbosacral myelography DO [facility] Work Phone: Start: 10-07-2022 Dual energy X-ray absorptiometry DO [facility] Work Phone: Start: 09-19-2022 MR lumbar spine wo con DO Kalie [facility] Work Phone: Start: 08-18-2022 X-ray of lumbar spin e, six views including bending views DO Kalie Kasper Work Phone: Start: 09-08-2016 REPLACE OF R KNEE JT WITH SYNTH SUB, CEMENT, OPEN APPROACH QUE BLAKE Plan of Treatment Date Care Activity Detail Author Start: 10-30-2022 [facility] Start: 10-30-2022 Computerized axial tomography of lumbar spine with contrast [facility] Patient Education [facility] Work Phone: [facility] Immunizations Immunization Date Immunization Notes Care Provider Fa cility 06-12-2020 COVID-19 Vaccine Mod samuel - Documentation Purposes Only Clifford Munoz Jr. Other [facility] 05-15-2020 COVID-19 Vaccine Mod samuel - Documentation Purposes Only Clifford Munoz Jr. Other [facility] Payers Date Payer Category Payer Medicare [id number] 2019 Self-pay [id number] 2017 Medicare [id number] 2.1 [id number] 1960 Unknown [id number] 2.16.84 0.1.802991.3.579.2.593 1960 Unknown [id number] 2.16.84 0.1.224600.3.579.2.593 1960 Unknown [id number] 2.16.84 0.1.018302.3.579.2.593 1960 Unknown [id number] 2.16.84 0.1.759628.3.579.2.593 1960 Unknown [id number] 2.16.84 0.1.232905.3.579.2.593 1960 Unknown [id number] 2.16.84 0.1.650053.3.579.2.593 1960 Unknown [id number] 2.16.84 0.1.656153.3.579.2.593 1960 Unknown [id number] 2.16.84 0.1.898103.3.579.2.593 1960 Unknown [id number] 2.16.84 0.1.408920.3.579.2.593 1960 Unknown [id number] 2.16.840 .1.831248.3.579.2.1259 1960 Unknown [id number] 2.16.840 .1.934092.3.579.2.1259 1960 Unknown [id number] 2.16.840 .1.047490.3.579.2.1259 1960 Unknown [id number] 2.16.840. 1.172086.3.579.2.1259 1959 Medicare [id number] 2.1 [id number] 1959 Private Health Insurance [id number] Medicare [id number] 2.16 .840.1.581783.19 Unknown [id number] 2.16.8 40.1.756753.3.579.2.531 Unknown [id number] 2.16.8 40.1.601010.3.579.2.531 Unknown [id number] 2.16.8 40.1.115505.3.579.2.531 Unknown [id number] 2.16.8 40.1.586768.3.579.2.531 Unknown [id number] 2.16.8 40.1.265309.3.579.2.531 Social History Date Type Detail Facility Unknown if ever smoked [facility] Other Sex Assigned At Sex Assigned At Bir th [facility] Other Start: 01-03-2021 Tobacco smoking status NHIS Ex-smoker (finding) [facility] Start: 01-28-1961 Sex Assigned At Female F [facility] Medical Equipment Procedure Code Equipment Code Equipment Origin al Text Equipment Identifier Dates Arthroplasty, knee, total, minimally invasive Orthopaedic cement, non-medicated [id number] FDA Start: 01-03-2021 Arthroplasty, knee, total, minimally invasive Uncoated knee femur prosthesis [id number] FDA Start: 01-03-2021 Arthroplasty, knee, total, minimally invasive Tibial insert [id number] FDA Start: 01-03-2021 Arthroplasty, knee, total, minimally invasive Polyethylene patella prosthesis ()[id number] FDA Start: 01-03-2021 Arthroplasty, knee, total, minimally invasive Uncoated knee tibia prosthesis, metallic [id number] FDA Start: 01-03-2021 Start: 01-29-2021 Clinical Notes 11-21-2020 to 02-03-2023 Note Date & Type Note Facility 02-03-2023 Evaluation note Encounter Date Diagnosis Assessment Notes Jan, Type 2 diabetes mellitus with hyperglycemia (ICD-10 - E11.65) ASSESSMENT: 1. Controlled, a Type 2 diabetes with A1c of 9.7%, was 8.0%. Worsening. 2. Out of Jardiance X3 weeks should not have impacted A1c to this degree, but needs to restart. Defers CGM d/t cost. Sampled Synjardy 12.06/999 and given voucher Jardiance_ _ should buy 6 weeks of treatment with SGLT2i while settling out LOW INCOME SUBSIDY as recommended by BI for PAP Jardiance. (knows to hold Metfromin while on Synjardy) For now she should continue Tresiba 54 units once daily, Ozempic 2 mg weekly. I did let her know next option is prandial insulin, she is hoping to avoid increased need for insulin. We did have a conversation about her son who is type I diabetic, now in his 30s. She is always endorsed a diagnosis of type 2 diabetes. If any changes in character of her glycemic control we may need to consider C-peptide and antibodies. Research shows that stamina with the current regime may fatigue, as would outcomes and CGM is equitable compaired to disease instability. Patient also maintains active lifestyle which increases cumbersome nature of current regime. CGM necessary for titration of insulin. Patient deferred due to her [id number] cost. We will retry in a couple of months to see if coverage is better 3. Patient is alert, oriented and receptive to making changes or counseling. Notes: Seen for an assessment of current glucose pattern, changes in treatment plan, counseling and coordination of care related to diabetes, risks, and benefits of treatment, medications, side effects. Given handouts to reinforce concepts reviewed during counseling, see scanned notes. TOPICS REVIEWED: 1. Time was spent reviewing: a. Basic concepts of diabetes, progressive beta cell , concepts of basal/bolus/cor rective insulin requirements. Basal: The goal is fasting blood glucose of 90-130mg. IF fasting blood glucose starts to run under 100mg 3x's/ week, decrease dose by 10%. Bolus: The goal is to hold the blood glucose level steady meal to meal. If pt. is going to have increased physical activity after a meal, decrease the schedule meal dose prior to the activity by 30-50%. If pt. skips a meal do not take this dose. Correction: The goal is to correct an elevated glucose back into the 100-150mg range b. Nutrition: Concepts of healthy diet, encouraged to decrease saturated fat in diet and increase non-starchy vegetables and fruits in diet. BMI: Pt. needs to select one small change to decrease caloric intake or increase physical activity to help decrease weight. c. Correct treatment of hypoglycemia, carry a glucose source at all times on your person, in vehicles, and at bedside. Can use glucose tablets/4, four ounces of pop or juice equal to 15 G of carbohydrate. Blood glucose should be 100 mg/dl or higher when driving. d. ADA glucose goals for age and medical complexity reviewed e. Patient questions addressed 2. Activity/exerci se: Encouraged to start any form of physical activity. Start low level and increase slowly to a minimal goal of 150 minutes/week. Limit activity to what is allowed by other issues such as cardiac, pulmonary or orthopedic restrictions. 3. Standards of care: Reminded to have an annual dilated eye exam, A1C every 3 months, urine testing for microalbumin once/year, check feet daily and report any cuts or sores that do not appear to be healing. 4. Meter: Plan to check blood glucose: Please check blood glucose levels 4 times/day. Back to back meals reveal effectiveness of bolus dosing. The blood glucose data is used to determine insulin doses and confirm symptoms for hypoglycemia and hyperglcyemia. 5. [facility] Contact office if any issues or concerns with patterns of hypoglycemia, hyperglycemia, or diabetes medication issues. 6. Prescriptions: Jan, Vitamin D deficiency (ICD-10 - E55.9) Learning About Vitamin D material was published to portal Jan, Dietary counseling and surveillance (ICD-10 - Z71.3) Learning About Healthy Weight material was published to portal Jan, Hyperlipidemia (ICD-10 - E78.5) Learning About High Cholesterol material was published to portal will discuss with PCP possibility of increasing statin as LDL 134, consistently taking Atorvastatin 40 mg Jan, HTN (hypertension) (ICD-10 - I10) High Blood Pressure: Care Instructions material was published to portal at goal of less than 130/80 Jan, FCI current use of insulin (ICD-10 - Z79.4) Jan, BMI 50.0-59.9, adult (ICD-10 - Z68.43) [facility] Other 10-11-2023 Evaluation note* Encounter Date Diagnosis Assessment Notes Treatment Notes Treatment Clinical Notes Nov, Type 2 diabetes mellitus with hyperglycemia (ICD-10 - E11.65) ASSESSMENT: 1. Controlled, a Type 2 diabetes with A1c of 8.3%, was 8.0%. 2. Continue Tresiba 54 units twice daily, Ozempic and Tresiba. Ozempic dose tolerating 2 mg subcu once weekly and metformin 1000 mg p.o. twice daily. Continues Jardiance 25 mg but reporting cost concerns of 53 hours co-pay. We will send it to mail order pharmacy to see if this gives her cost savings. She did not qualify for low income subsidy. It appears that Synjardy will be tier 3 as is Jardiance. We could consider stopping medication as blood glucose secondary benefit not based on history if cost prohibitive. Could also consider patient assistance with Rekha crawford Fred. We did have a conversation about her son who is type I diabetic, now in his 30s. She is always endorsed a diagnosis of type 2 diabetes. If any changes in character of her glycemic control we may need to consider C-peptide and antibodies. Research shows that stamina with the current regime may fatigue, as would outcomes and CGM is equitable compaired to disease instability. Patient also maintains active lifestyle which increases cumbersome nature of current regime. CGM necessary for titration of insulin. Patient deferred due to her [id number]-quaudm cost. We will retry in a couple of months to see if coverage is better 3. Patient is alert, oriented and receptive to making changes or counseling. Notes: Seen for an assessment of current glucose pattern, changes in treatment plan, counseling and coordination of care related to diabetes, risks, and benefits of treatment, medications, side effects. Given handouts to reinforce concepts reviewed during counseling, see scanned notes. TOPICS REVIEWED: 1. Time was spent reviewing: a. Basic concepts of diabetes, progressive beta cell , concepts of basal/bolus/correc tive insulin requirements. Basal: The goal is fasting blood glucose of 90-130mg. IF fasting blood glucose starts to run under 100mg 3x's/ week, decrease dose by 10%. Bolus: The goal is to hold the blood glucose level steady meal to meal. If pt. is going to have increased physical activity after a meal, decrease the schedule meal dose prior to the activity by 30-50%. If pt. skips a meal do not take this dose. Correction: The goal is to correct an elevated glucose back into the 100-150mg range b. Nutrition: Concepts of healthy diet, encouraged to decrease saturated fat in diet and increase non-starchy vegetables and fruits in diet. BMI: Pt. needs to select one small change to decrease caloric intake or increase physical activity to help decrease weight. c. Correct treatment of hypoglycemia, carry a glucose source at all times on your person, in vehicles, and at bedside. Can use glucose tablets/4, four ounces of pop or juice equal to 15 G of carbohydrate. Blood glucose should be 100 mg/dl or higher when driving. d. ADA glucose goals for age and medical complexity reviewed e. Patient questions addressed 2. Activity/exercise: Encouraged to start any form of physical activity. Start low level and increase slowly to a minimal goal of 150 minutes/week. Limit activity to what is allowed by other issues such as cardiac, pulmonary or orthopedic restrictions. 3. Standards of care: Reminded to have an annual dilated eye exam, A1C every 3 months, urine testing for microalbumin once/year, check feet daily and report any cuts or sores that do not appear to be healing. 4. Meter: Plan to check blood glucose: Please check blood glucose levels 4 times/day. Back to back meals reveal effectiveness of bolus dosing. The blood glucose data is used to determine insulin doses and confirm symptoms for hypoglycemia and hyperglcyemia. 5. [facility]. Contact office if any issues or concerns with patterns of hypoglycemia, hyperglycemia, or diabetes medication issues. 6. Prescriptions: None needed 10-03-2022.PAP Vadim/Elvie. PAP denied for Jardiance Nov, Vitamin D deficiency (ICD-10 - E55.9) Learning About Vitamin D material was published to portal Nov, Dietary counseling and surveillance (ICD-10 - Z71.3) Learning About Healthy Weight material was published to portal Nov, Hyperlipidemia (ICD-10 - E78.5) Learning About High Cholesterol material was published to portal will discuss with PCP possibility of increasing statin as LDL 134, consistently taking Atorvastatin 40 mg Nov, HTN (hypertension) (ICD-10 - I10) High Blood Pressure: Care Instructions material was published to portal at goal of less than 130/80 Nov, FCI current use of insulin (ICD-10 - Z79.4) Nov, BMI 50.0-59.9, adult (ICD-10 - Z68.43) [facility] Other 10-10-2023 Evaluation note* Encounter Date Diagnosis Assessment Notes Treatment Notes Treatment Clinical Notes Nov, History of lumbar spinal fusion (ICD-10 - Z98.1) I independently reviewed the MRI of the lumbar spine and the report.Also the plain x-ray of the lumbar spine and report. This patient has chronic low back pain and diffuse aches all over including up above the area of operation around the area operation and in the flank region and in the low back region. I see she has a diagnosis of fibromyalgia I think that this is a good part fibromyalgia. I have no surgical answer for her low back pain unfortunately 1 may consider a dorsal column stimulator I gave the patient a note to take to her pain management doctor stating that. Nov, Low back pain, unspecified (ICD-10 - M54.50) Nov, Other chronic pain (ICD-10 - G89.29) [facility] Other 08-24-2023 Evaluation note* Encounter Date Diagnosis Assessment Notes Treatment Notes Treatment Clinical Notes Sep, Lumbar stenosis with neurogenic claudication (ICD-10 - M48.062) Upon review of MRI it is difficult to read due to artifact from harware in which a CT myelogram is needed to further evaluate and determine interventional procedures. Patient has notable tremors and recent changes within the last year with worsening of tremors in which I wIll Refer to neurology for further work up. Will order EMG of bilateral lower extremites to determine radicular vs peripheral neuropathy. Follow up in [address] Turner Sep, Tremors of nervous system (ICD-10 - R25.1) Refer to Neurolgoy for further evaluation and treatment Sep, BMI 50.0-59.9, adult (ICD-10 - Z68.43) Sep, Age-related osteoporosis without current pathological fracture (ICD-10 - M81.0) Dexa scan reviewed will refer to [facility] for further treatment of osteoporosis. Sep, History of lumbar spinal fusion (ICD-10 - Z98.1) [facility] Other 08-18-2023 Evaluation note* Encounter Date Diagnosis Assessment Notes Treatment Notes Treatment Clinical Notes Sep, Type 2 diabetes mellitus with hyperglycemia (ICD-10 - E11.65) ASSESSMENT: 1. Controlled, a Type 2 diabetes with A1c of 8.3%, was 8.0%. 2. Not on Jardiance. BI PAP denied as patient may qual for low income subsidy-- this was discussed-- Sampled again today 10/03/2022. She will continue Tresiba 54 units once daily, She is already maximized on Ozempic 2.0 mg subcu weekly, her weight is not reducing but she does notice feelings of fullness. She will continue metformin 1000 mg p.o. twice daily. Continue vitamin D3 4000 international units once daily t continue vitamin B12 as her vitamin B12 is 218 and diabetes goal is closer to 550. We will have her return to clinic in 8 weeks to assure no disease instability. No clear characterization of blood glucose. Retained hypoglycemia awareness but not recent episode. No evidence of lows. We did have a conversation about her son who is type I diabetic, now in his 30s. She is always endorsed a diagnosis of type 2 diabetes. If any changes in character of her glycemic control we may need to consider C-peptide and antibodies. Research shows that stamina with the current regime may fatigue, as would outcomes and CGM is equitable compaired to disease instability. Patient also maintains active lifestyle which increases cumbersome nature of current regime. CGM necessary for titration of insulin. Patient deferred due to her [id number] cost. We will retry in a couple of months to see if coverage is better 3. Patient is alert, oriented and receptive to making changes or counseling. Notes: Seen for an assessment of current glucose pattern, changes in treatment plan, counseling and coordination of care related to diabetes, risks, and benefits of treatment, medications, side effects. Given handouts to reinforce concepts reviewed during counseling, see scanned notes. TOPICS REVIEWED: 1. Time was spent reviewing: a. Basic concepts of diabetes, progressive beta cell , concepts of basal/bolus/correc tive insulin requirements. Basal: The goal is fasting blood glucose of 90-130mg. IF fasting blood glucose starts to run under 100mg 3x's/ week, decrease dose by 10%. Bolus: The goal is to hold the blood glucose level steady meal to meal. If pt. is going to have increased physical activity after a meal, decrease the schedule meal dose prior to the activity by 30-50%. If pt. skips a meal do not take this dose. Correction: The goal is to correct an elevated glucose back into the 100-150mg range b. Nutrition: Concepts of healthy diet, encouraged to decrease saturated fat in diet and increase non-starchy vegetables and fruits in diet. BMI: Pt. needs to select one small change to decrease caloric intake or increase physical activity to help decrease weight. c. Correct treatment of hypoglycemia, carry a glucose source at all times on your person, in vehicles, and at bedside. Can use glucose tablets/4, four ounces of pop or juice equal to 15 G of carbohydrate. Blood glucose should be 100 mg/dl or higher when driving. d. ADA glucose goals for age and medical complexity reviewed e. Patient questions addressed 2. Activity/exercise: Encouraged to start any form of physical activity. Start low level and increase slowly to a minimal goal of 150 minutes/week. Limit activity to what is allowed by other issues such as cardiac, pulmonary or orthopedic restrictions. 3. Standards of care: Reminded to have an annual dilated eye exam, A1C every 3 months, urine testing for microalbumin once/year, check feet daily and report any cuts or sores that do not appear to be healing. 4. Meter: Plan to check blood glucose: Please check blood glucose levels 4 times/day. Back to back meals reveal effectiveness of bolus dosing. The blood glucose data is used to determine insulin doses and confirm symptoms for hypoglycemia and hyperglcyemia. 5. [facility]. Contact office if any issues or concerns with patterns of hypoglycemia, hyperglycemia, or diabetes medication issues. 6. Prescriptions: None needed 10-03-2022.PAP Vadim/Elvie. PAP denied for Jardiance Sep, Vitamin D deficiency (ICD-10 - E55.9) Learning About Vitamin D material was published to portal Sep, Dietary counseling and surveillance (ICD-10 - Z71.3) Learning About Healthy Weight material was published to portal Sep, Hyperlipidemia (ICD-10 - E78.5) Learning About High Cholesterol material was published to portal will discuss with PCP possibility of increasing statin as LDL 134, consistently taking Atorvastatin 40 mg Sep, HTN (hypertension) (ICD-10 - I10) High Blood Pressure: Care Instructions material was published to portal Blood pressure above goal today at 143/88, goal of less than 130/80 Sep, FCI current use of insulin (ICD-10 - Z79.4) Sep, BMI 50.0-59.9, adult (ICD-10 - Z68.43) [facility] Other 06-27-2023 Evaluation note* Encounter Date Diagnosis Assessment Notes Treatment Notes Treatment Clinical Notes Jul, Lumbar radiculopathy (ICD-10 - M54.16) Independently reviewed the CT of the lumbar spine from 03/06/22, reviewed [id number] with patient which shows which shows multilevel degenerative changes with mild to moderate canal and foraminal narrowing at the L4-L5. Shows posterior mechanical fusion at the L1-S1 with posterior decompression at the L1-L3. Patient had physical therapy at [facility] and continues to do the home physical therapy without improvement. Will order xray lumbar 6 view to rule out any spondylolisthesis. Will order MRI to rule out any cord compression. Will get release of information from pain management Dr. Cook and [facility] physical therapy for continuity of care.Will order Aqua therapy. OARRS reviewed. pharmacological management reviewed, will continue with current prescriptions as prescribed. Will add lidocaine patch and ippd-tii-wddrztm Thermo patch. Will follow-up in 8 weeks or once imaging is completed. Medical decision making shows a new problem to me with further workup planned or suggested with the potential for extensive treatment options that were considered with the most applicable given this patient's situation as noted above. Treatment options considered include a combination of physical therapy approaches, pharmacologic management, and interventional procedures. Those most applicable to the patient were discussed at this time. Risk of complications and/or morbidity and mortality is high given that acute and chronic pain poses a threat to life and bodily function if undertreated, poorly treated or with failure to maintain adequate treatment and timely follow up. Given the serious and fluctuating nature of pain with extensive consideration for whenever pain changes, there always remains the possibility of prolonged functional impairment requiring constant patient reassessment and high-level medical decision making. The amount and complexity of data reviewed is moderate given that patient labs, radiology reports, and other test were obtained, reviewed and summarized as applicable from the physician portal and/or outside medical records. Pertinent positive and negative findings were considered in medical decision-making. Jul, Left leg pain (ICD-10 - M79.605) Jul, Age-related osteoporosis without current pathological fracture (ICD-10 - M81.0) Jul, History of lumbar fusion (ICD-10 - Z98.1) Jul, Depression screening (ICD-10 - Z13.31) PHQ reviewed score 1 negative screening. Denies any thoughts of harming self or others. Advised 988 crisis line. Jul, BMI 50.0-59.9, adult (ICD-10 - Z68.43) Education completed on diet, exercise, sugary and caloric intake. Education on 1lb wieght has 4lbs of pressure to the spine. Patient is currently under weight management is on Ozempic for diabetes mellitus and has been on this medication for 2 years. Advised to follow-up with weight management. Jul, Post menopausal syndrome (ICD-10 - Z78.0) We will order DEXA scan to rule out osteoporosis Jul, Other [facility] reveiwed [facility] [place] [facility] Other 06-16-2023 Evaluation note* Encounter Date Diagnosis Assessment Notes Treatment Notes Treatment Clinical Notes Jul, Type 2 diabetes mellitus with hyperglycemia (ICD-10 - E11.65) ASSESSMENT: 1. Controlled, a Type 2 diabetes with A1c of 8.0%, was 7.0%. 2. She will continue Tresiba 54 units once daily, if able to start Jardiance and notices reductions in blood glucose consistently daily we will have her reduce by 5 units. Written information was given unable to afford Jardiance, will apply for patient assistance. She is already maximized on Ozempic 2.0 mg subcu weekly, her weight is not reducing but she does notice feelings of fullness. She will continue metformin 1000 mg p.o. twice daily. Vitamin D level is low we will do prescription grade vitamin D3 for 8 weeks and then subsequent 4000 international units once daily thereafter. I have encouraged her to take vitamin B12 as her vitamin B12 is 218 and diabetes goal is closer to 550. We will have her return to clinic in 8 weeks to assure no disease instability. No clear characterization of blood glucose. Retained hypoglycemia awareness but not recent episode. No evidence of lows. We did have a conversation about her son who is type I diabetic, now in his 30s. She is always endorsed a diagnosis of type 2 diabetes. If any changes in character of her glycemic control we may need to consider C-peptide and antibodies. Encouraged vitamin D supplement 4000 IU daily (level 23 goal 40 and B12 SL supplement (level 293 goal 550) . Research shows that stamina with the current regime may fatigue, as would outcomes and CGM is equitable compaired to disease instability. Patient also maintains active lifestyle which increases cumbersome nature of current regime. CGM necessary for titration of insulin. Patient deferred due to her [id number] cost. We will retry in a couple of months to see if coverage is better 3. Patient is alert, oriented and receptive to making changes or counseling. Notes: Seen for an assessment of current glucose pattern, changes in treatment plan, counseling and coordination of care related to diabetes, risks, and benefits of treatment, medications, side effects. Given handouts to reinforce concepts reviewed during counseling, see scanned notes. TOPICS REVIEWED: 1. Time was spent reviewing: a. Basic concepts of diabetes, progressive beta cell , concepts of basal/bolus/correcti ve insulin requirements. Basal: The goal is fasting blood glucose of 90-130mg. IF fasting blood glucose starts to run under 100mg 3x's/ week, decrease dose by 10%. Bolus: The goal is to hold the blood glucose level steady meal to meal. If pt. is going to have increased physical activity after a meal, decrease the schedule meal dose prior to the activity by 30-50%. If pt. skips a meal do not take this dose. Correction: The goal is to correct an elevated glucose back into the 100-150mg range b. Nutrition: Concepts of healthy diet, encouraged to decrease saturated fat in diet and increase non-starchy vegetables and fruits in diet. BMI: Pt. needs to select one small change to decrease caloric intake or increase physical activity to help decrease weight. c. Correct treatment of hypoglycemia, carry a glucose source at all times on your person, in vehicles, and at bedside. Can use glucose tablets/4, four ounces of pop or juice equal to 15 G of carbohydrate. Blood glucose should be 100 mg/dl or higher when driving. d. ADA glucose goals for age and medical complexity reviewed e. Patient questions addressed 2. Activity/exercise: Encouraged to start any form of physical activity. Start low level and increase slowly to a minimal goal of 150 minutes/week. Limit activity to what is allowed by other issues such as cardiac, pulmonary or orthopedic restrictions. 3. Standards of care: Reminded to have an annual dilated eye exam, A1C every 3 months, urine testing for microalbumin once/year, check feet daily and report any cuts or sores that do not appear to be healing. 4. Meter: Plan to check blood glucose: Please check blood glucose levels 4 times/day. Back to back meals reveal effectiveness of bolus dosing. The blood glucose data is used to determine insulin doses and confirm symptoms for hypoglycemia and hyperglcyemia. 5. [facility] Contact office if any issues or concerns with patterns of hypoglycemia, hyperglycemia, or diabetes medication issues. 6. Prescriptions: none 08-01-2022.PAP Ozempic/Tresiba. Jul, Vitamin D deficiency (ICD-10 - E55.9) Learning About Vitamin D material was published to portal Jul, Dietary counseling and surveillance (ICD-10 - Z71.3) Learning About Healthy Weight material was published to portal Jul, Hyperlipidemia (ICD-10 - E78.5) Learning About High Cholesterol material was published to portal will discuss with PCP possibility of increasing statin as LDL 134, consistently taking Atorvastatin 40 mg Jul, HTN (hypertension) (ICD-10 - I10) High Blood Pressure: Care Instructions material was published to portal Jul, [facility] current use of insulin (ICD-10 - Z79.4) Jul, BMI 50.0-59.9, adult (ICD-10 - Z68.43) [facility] Other 04-21-2023 Evaluation note* Encounter Date Diagnosis Assessment Notes Treatment Notes Treatment Clinical Notes May, Type 2 diabetes mellitus with hyperglycemia (ICD-10 - E11.65) ASSESSMENT: 1. Controlled, a Type 2 diabetes with A1c of 8.0%, was 7.0%. 2. No clear characterization of blood glucose. Retained hypoglycemia awareness but not recent episode. No evidence of lows. Diabetes control slightly worsened with A1c from 7.0, 7.8% now 8.0%. Continues Jardiance 25 mg dauk,Continues metformin. Tolerating ing Ozempic 2.0 mg subcu weekly, receiving via patient assistance. Patient is interested Mounjaro likely cost prohibitive as not covered on Pap and no current cost savings offered. She will continue Tresiba 54 units once daily. If fasting blood sugars are under 100 3 times in a week she will decrease by 10% or 5 units. We discussed needing to get insulin levels down to afford weight loss. We placed CGM given to monitor today she defers dietary counseling at this time. She also defers official participation in weight management. But this invitation stands if she changes her mind. She is not having hypoglycemia therefore that is not contributing to her dosing. We did have a conversation about her son who is type I diabetic, now in his 30s. She is always endorsed a diagnosis of type 2 diabetes. If any changes in character of her glycemic control we may need to consider C-peptide and antibodies. Encouraged vitamin D supplement 4000 IU daily (level 23 goal 40 and B12 SL supplement (level 293 goal 550) . Research shows that stamina with the current regime may fatigue, as would outcomes and CGM is equitable compaired to disease instability. Patient also maintains active lifestyle which increases cumbersome nature of current regime. CGM necessary for titration of insulin 3. Patient is alert, oriented and receptive to making changes or counseling. Notes: Seen for an assessment of current glucose pattern, changes in treatment plan, counseling and coordination of care related to diabetes, risks, and benefits of treatment, medications, side effects. Given handouts to reinforce concepts reviewed during counseling, see scanned notes. TOPICS REVIEWED: 1. Time was spent reviewing: a. Basic concepts of diabetes, progressive beta cell , concepts of basal/bolus/correcti ve insulin requirements. Basal: The goal is fasting blood glucose of 90-130mg. IF fasting blood glucose starts to run under 100mg 3x's/ week, decrease dose by 10%. Bolus: The goal is to hold the blood glucose level steady meal to meal. If pt. is going to have increased physical activity after a meal, decrease the schedule meal dose prior to the activity by 30-50%. If pt. skips a meal do not take this dose. Correction: The goal is to correct an elevated glucose back into the 100-150mg range b. Nutrition: Concepts of healthy diet, encouraged to decrease saturated fat in diet and increase non-starchy vegetables and fruits in diet. BMI: Pt. needs to select one small change to decrease caloric intake or increase physical activity to help decrease weight. c. Correct treatment of hypoglycemia, carry a glucose source at all times on your person, in vehicles, and at bedside. Can use glucose tablets/4, four ounces of pop or juice equal to 15 G of carbohydrate. Blood glucose should be 100 mg/dl or higher when driving. d. ADA glucose goals for age and medical complexity reviewed e. Patient questions addressed 2. Activity/exercise: Encouraged to start any form of physical activity. Start low level and increase slowly to a minimal goal of 150 minutes/week. Limit activity to what is allowed by other issues such as cardiac, pulmonary or orthopedic restrictions. 3. Standards of care: Reminded to have an annual dilated eye exam, A1C every 3 months, urine testing for microalbumin once/year, check feet daily and report any cuts or sores that do not appear to be healing. 4. Meter: Plan to check blood glucose: Please check blood glucose levels 4 times/day. Back to back meals reveal effectiveness of bolus dosing. The blood glucose data is used to determine insulin doses and confirm symptoms for hypoglycemia and hyperglcyemia. 5. [facility]. Contact office if any issues or concerns with patterns of hypoglycemia, hyperglycemia, or diabetes medication issues. 6. 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 Weight up today without decrease in insulin needs, no increases satiety The patient was given a Dexcom G6 sample and loaned an Office owned Dexcom G6 [employer]. The sensor was placed on the back of her right arm by this educator. The patient was shown how to unlock the clin tech and read her BG. 15 minutes were spent placing the sensor and educating the patient by Lit Dixon RN, [facility] . [facility] Other 03-30-2023 NoteCONSULTATION CONSULTATION DATE: 05/15/2022 TO: Judith Newman D.O. CHIEF COMPLAINT: Includes severe low back pain, right hip pain. HISTORY: She rates it as being 5-7/10 pain, sharp in character, with a burning component, increased with activities such as light touch to the right gluteal area and right hip area, on the lateral portion. She reports, at times, forward flexion is quite painful. She feels most comfortable in the semi-recumbent position. She denies any change in bowel and bladder habits or new sensorimotor changes in the lower extremities. EXAM: Notable for patient having dysesthesia and hyperesthesia along the distribution of the lateral cutaneous branch of the iliohypogastric nerve on the right side, with significant myofascial spasm along the paravertebral muscles on the right side as well, as well as spasm of the right gluteus medius. IMPRESSION: Our impression is patient with chronic pain secondary to post laminectomy syndrome, status post fusion from L1 through S1, with associated myofascial spasm of the lumbar paravertebral muscles and neuritis involving the lateral cutaneous branch of the iliohypogastric nerve on the right side. RECOMMENDATIONS: I recommended aquatic therapy. I have asked her to continue with Lyrica 75 mg b.i.d. I have discontinued baclofen secondary to ineffectiveness. We will trial her on Zanaflex 4 mg pills, half a pill in the morning, half a pill in the afternoon and one pill at bedtime, aquatic therapy, and to proceed with diagnostic right sided injection of the lateral cutaneous branch of the iliohypogastric nerve under fluoroscopic guidance.[facility] [id number] Evaluation note* Encounter Date Diagnosis Assessment Notes Treatment Notes Treatment Clinical Notes Feb, Type 2 diabetes mellitus with hyperglycemia (ICD-10 - E11.65) ASSESSMENT: 1. Controlled, a Type 2 diabetes with A1c of 7.8%, was 7.0%. 2. No characterization of blood glucose. Retained hypoglycemia awareness but not recent episode. No evidence of lows. Diabetes control slightly worsened with A1c from 7.0 to 7.8%. Patient has been off of Jardiance for approximately 6 weeks due to. She has been off of metformin for 3 days due to having CT with contrast. She will restart on Thursday. She is tolerating Ozempic 2.0 mg subcu weekly, receiving via patient assistance. She is frustrated by her lack of weight loss (Last visit 256, now 264lbs). She is interested in trying Mounjaro. She still has supply of Ozempic. At this time we do not have gauge on patient assistance but will look into this. She will continue Tresiba 54 units once daily. If fasting blood sugars are under 100 3 times in a week she will decrease by 10% or 5 units. We discussed needing to get insulin levels down to afford weight loss. She defers dietary counseling at this time. She also defers official participation in weight management. But this invitation stands if she changes her mind. She is not having hypoglycemia therefore that is not contributing to her dosing. We did have a conversation about her son who is type I diabetic, now in his 30s. She is always endorsed a diagnosis of type 2 diabetes. She is not in need of prandial insulin so I have low suspicion for type 1 diabetes. If any changes in character of her glycemic control we may need to consider C-peptide and antibodies. Encouraged vitamin D supplement 4000 IU daily (level 23 goal 40 and B12 SL supplement (level 293 goal 550) 3. Patient is alert, oriented and receptive to making changes or counseling. Notes: Seen for an assessment of current glucose pattern, changes in treatment plan, counseling and coordination of care related to diabetes, risks, and benefits of treatment, medications, side effects. Given handouts to reinforce concepts reviewed during counseling, see scanned notes. TOPICS REVIEWED: 1. Time was spent reviewing: a. Basic concepts of diabetes, progressive beta cell , concepts of basal/bolus/correcti ve insulin requirements. Basal: The goal is fasting blood glucose of 90-130mg. IF fasting blood glucose starts to run under 100mg 3x's/ week, decrease dose by 10%. Bolus: The goal is to hold the blood glucose level steady meal to meal. If pt. is going to have increased physical activity after a meal, decrease the schedule meal dose prior to the activity by 30-50%. If pt. skips a meal do not take this dose. Correction: The goal is to correct an elevated glucose back into the 100-150mg range b. Nutrition: Concepts of healthy diet, encouraged to decrease saturated fat in diet and increase non-starchy vegetables and fruits in diet. BMI: Pt. needs to select one small change to decrease caloric intake or increase physical activity to help decrease weight. c. Correct treatment of hypoglycemia, carry a glucose source at all times on your person, in vehicles, and at bedside. Can use glucose tablets/4, four ounces of pop or juice equal to 15 G of carbohydrate. Blood glucose should be 100 mg/dl or higher when driving. d. ADA glucose goals for age and medical complexity reviewed e. Patient questions addressed 2. Activity/exercise: Encouraged to start any form of physical activity. Start low level and increase slowly to a minimal goal of 150 minutes/week. Limit activity to what is allowed by other issues such as cardiac, pulmonary or orthopedic restrictions. 3. Standards of care: Reminded to have an annual dilated eye exam, A1C every 3 months, urine testing for microalbumin once/year, check feet daily and report any cuts or sores that do not appear to be healing. 4. Meter: Plan to check blood glucose: Please check blood glucose levels 4 times/day. Back to back meals reveal effectiveness of bolus dosing. The blood glucose data is used to determine insulin doses and confirm symptoms for hypoglycemia and hyperglcyemia. 5. [facility]. Contact office if any issues or concerns with patterns of hypoglycemia, hyperglycemia, or diabetes medication issues. 6. 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 Weight up today without decrease in insulin needs, no increases satiety [facility] Other 12-29-2022 NoteCONSULTATION CONSULTATION DATE: 02/13/2022 HISTORY OF PRESENT ILLNESS: This is a 61-year-old female who is returning to the clinic for a three month follow up for chronic lower back pain. The patient presents very tearful today. She admits she is at a level of pain and she hurts all the time. Her pain is 7/10 today, described as sharp and stabbing. She has chronic radicular pain down her right lower extremity to the level of the ankle. Intervention-forte she, in the past, has had a sympathetic block, medial branch blocks and a caudal epidural, only giving her very short, temporary relief. Her epidural gave her 100% relief for one day and that was back in 2019. Patient does have right lower extremity weakness, but is able to walk unassisted. Medications include Bynum 5/325 t.i.d., baclofen 10 mg q.h. s., Pamelor and gabapentin 100 mg t.i.d. At her last appointment, I discussed the patient going to aqua therapy and she agreed; however, due to cost of visits and financial constraints, she was able to fulfill those visits. She reports all activity is aggravating to her pain. She does not list any relieving factors. Patient's REVIEW OF SYSTEMS / PAST MEDICAL HISTORY / ALLERGIES and IMAGES have been reviewed and noted in the chart. PHYSICAL EXAM: VITAL SIGNS: Blood pressure is 199/102. Heart rate is 101. Pulse ox is 93. Temperature is 97.8. She is 5'3 , weighs 122.6 kg. GENERAL APPEARANCE: Patient is emotional and tearful, uncomfortable sitting in the chair. FOCUSED EXAM - BACK: Range of motion is guarded in lateral rotation and flexion/extension. Paravertebral muscles are spasmodic throughout erector spinae and trapezius muscles. Fani's point tender to the right. Positive FABERs and compression test. Reproduction of spinal axial pain upon compression of the lower lumbar facets of L2, L3 and L4, L5. MUSCULOSKELETAL: Motor is 4/5 bilaterally, right weaker than the left. Hamstring, quadriceps and anterior tibialis notably weaker. Extensors are intact. NEUROLOGICAL: Radicular sensory is intact to the left lower extremity. Stocking distribution hypoesthesia noted along L5-S1 to the right distribution to the level of the ankle. Blunted reflexes to the right lower extremity, 1/2 to the left. DIAGNOSIS: Lumbar spinal canal stenosis, lumbar radiculopathy, lumbar degenerative disc disease and chronic lower back pain. PLAN: Considering the patient had eight rods and screws as well as a lumbar laminectomy in 2015, the patient is having significant increased pain. We will update a CT with contrast of her lumbar spine. I did offer the patient a lumbar epidural steroid injection; however, the patient declines stating while they do give her significant relief, it is not long lasting. We will change her gabapentin to Lyrica 75 mg b.i.d. A referral will be sent to [facility] to Dr. Moses Goetz for evaluation and patient is in complete agreement with this. We will continue to maintain her medications at this time, which will include Lyrica, Bynum and baclofen. We will see the patient in three months' time, unless otherwise indicated. Patient was asked to call the office with an update once she has seen Neurosurgery.[facility] 12-31-2021 Evaluation note* Encounter Date Diagnosis Assessment Notes Treatment Notes Treatment Clinical Notes Dec, Type 2 diabetes mellitus with hyperglycemia (ICD-10 - E11.65) [facility] Other 09-21-2022 NoteCONSULTATION CONSULTATION DATE: 11/06/2021 HISTORY OF PRESENT ILLNESS: This is a pleasant, 61-year-old female, returning to the clinic for a three month follow up for chronic lower back pain. The patient does have a history of a lumbar fusion from L1-S1. The patient has done procedures in the past, with her last one being a left lumbar sympathetic block in March. At this time, she wishes to hold off on any further injections until otherwise noticed. She was prescribed aqua therapy back in May of 2021, which the patient did not follow through on. She states she was never called to schedule therapy. Patient does lead a sedentary life and does not move much secondary to her pain. Current medications include Bynum 5/325 t.i.d., baclofen 10 mg q.h.s., Pamelor and gabapentin 100 mg t.i.d. Activities that aggravate her pain are standing, walking, lifting, housework, stairs and bending. The use of heat and ice alternately, in addition to sitting and sleeping decrease her pain. She denies any new radicular pain or vasomotor weakness. Patient's REVIEW OF SYSTEMS / PAST MEDICAL HISTORY / ALLERGIES and IMAGES have been reviewed and they are noted on the chart. PHYSICAL EXAM: VITAL SIGNS: Blood pressure 135/79, heart rate is 96. Temperature is 97.7. She is 5'3 and weighs 116 kg. GENERAL IMPRESSION: Pleasant, appropriate, no acute distress. FOCUSED EXAM - BACK: Paravertebral muscles bilaterally are taut but non-spasmodic. Range of motion is slightly guarded in lateral rotation and flexion/extension. Compression over lower lumbar paravertebral muscles reproduces the patient's pain symptomatology. Fani's point is non-tender bilaterally with negative FABERs and compression tests. MUSCULOSKELETAL: Motor is intact, 4/5 bilaterally. Patient does use a cane for prolonged walking. Ambulates with a steady gait. NEUROLOGICAL: Negative polyneuropathy. Radicular sensory is intact. Bilateral patellar reflexes are 1/2 bilaterally. DIAGNOSIS: Lumbar paravertebral spasms, chronic lower back pain, lumbar degenerative disc disease. PLAN: We will re-submit an order for aqua therapy that I feel she would greatly benefit from. This will occur 2-3 times a week for 6-8 weeks. A refill for gabapentin 100 mg t.i.d. will be sent to her pharmacy. Education was given regarding the use of Naveed's VapoRub mixed with Voltaren 1% gel on her back and heat application to follow. Patient will be seen in the clinic in three months' time unless otherwise indicated, and patient agrees with this plan.[id number] Evaluation note* Encounter Date Diagnosis Assessment Notes Treatment Notes Treatment Clinical Notes Oct, Type 2 diabetes mellitus with hyperglycemia (ICD-10 - E11.65) Sample Ozempic 2.0 mg weekly, awaiting PAP submission ASSESSMENT: 1. Controlled, a Type 2 diabetes with A1c of 7.0% 2. Blood glucose levels have slight increase from 06/2021 A1c. She will increase her BG vigilence and report if am fasting >130, intermittent AC checks. She is tolerating Ozempic 2.0 mg, missed dosing x 2 weeks, awaiting PAP. Sample today, encouraged 1.5 mg x 1 week then if tolerated return to 2.0 mg dosing weekly. She should continue Tresiba 54 u daily, reduce if am fasting BG <100 3 days per week. She will continue Jardiance 25 mg p.o. daily. Encouraged vitamin D supplement 4000 IU daily (level 23 goal 40 and B12 SL supplement (level 293 goal 550) 3. Patient is alert, oriented and receptive to making changes or counseling. Notes: Seen for an assessment of current glucose pattern, changes in treatment plan, counseling and coordination of care related to diabetes, risks, and benefits of treatment, medications, side effects. Given handouts to reinforce concepts reviewed during counseling, see scanned notes. TOPICS REVIEWED: 1. Time was spent reviewing: a. Basic concepts of diabetes, progressive beta cell , concepts of basal/bolus/correc tive insulin requirements. Basal: The goal is fasting blood glucose of 90-130mg. IF fasting blood glucose starts to run under 100mg 3x's/ week, decrease dose by 10%. Bolus: The goal is to hold the blood glucose level steady meal to meal. If pt. is going to have increased physical activity after a meal, decrease the schedule meal dose prior to the activity by 30-50%. If pt. skips a meal do not take this dose. Correction: The goal is to correct an elevated glucose back into the 100-150mg range b. Nutrition: Concepts of healthy diet, encouraged to decrease saturated fat in diet and increase non-starchy vegetables and fruits in diet. BMI: Pt. needs to select one small change to decrease caloric intake or increase physical activity to help decrease weight. c. Correct treatment of hypoglycemia, carry a glucose source at all times on your person, in vehicles, and at bedside. Can use glucose tablets/4, four ounces of pop or juice equal to 15 G of carbohydrate. Blood glucose should be 100 mg/dl or higher when driving. d. ADA glucose goals for age and medical complexity reviewed e. Patient questions addressed 2. Activity/exercise: Encouraged to start any form of physical activity. Start low level and increase slowly to a minimal goal of 150 minutes/week. Limit activity to what is allowed by other issues such as cardiac, pulmonary or orthopedic restrictions. 3. Standards of care: Reminded to have an annual dilated eye exam, A1C every 3 months, urine testing for microalbumin once/year, check feet daily and report any cuts or sores that do not appear to be healing. 4. Meter: Plan to check blood glucose: Please check blood glucose levels 4 times/day. Back to back meals reveal effectiveness of bolus dosing. The blood glucose data is used to determine insulin doses and confirm symptoms for hypoglycemia and hyperglcyemia. 5. [facility] Contact office if any issues or concerns with patterns of hypoglycemia, hyperglycemia, or diabetes medication issues. 6. Prescriptions: Request refills for Ozempic. Returned PAP paperwork for Ozempic 10/28/2021. 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 Weight slightly improving. hopeful for continue reduction to increase insulin sensitivity and decrease insulin needs. [facility] Other 06-16-2022 NoteCONSULTATION CONSULTATION DATE: 08/01/2021 HISTORY OF PRESENT ILLNESS: This is a 61-year-old female returning to the clinic for a three month follow up for her chronic mid and lower back pain. She was last seen on 05/23/2021 and, at that time, she received a right gluteal trigger point injection. Patient stated that it was helpful. The patient has had shingles this past March of 2021 and suffered from postherpetic neuralgia. She received a sympathetic nerve block which was helpful for one day. This was in April of 2021. Today, her pain is a 4/10 and describes it as a mild burn but manageable. Her current medications are Bynum 5/325 t.i.d., baclofen 10 mg q.h.s. and Pamelor 100 mg. The patient was, in the past, prescribed gabapentin 100 mg b.i.d. per her PCP for the shingles but has since ran out. The patient felt that while she was on it, it overall helped her generalized pain and is requesting to be placed back on that. Activities that aggravate her pain are twisting, pushing, pulling, standing, walking, lying, stairs and bending. She denies any new radicular pain or vasomotor changes. Patient's REVIEW OF SYSTEMS / PAST MEDICAL HISTORY / ALLERGIES and IMAGES have been reviewed and they are noted in the chart. PHYSICAL EXAM: VITAL SIGNS: Blood pressure 171/99, heart rate is 104. Temperature is 96.9. She is 5'3 and weighs 116 kg. GENERAL APPEARANCE: Pleasant, appropriate, in no acute distress. FOCUSED EXAM - BACK: Range of motion is slightly guarded in lateral rotation and flexion/extension. Mild reproduction of spinal axial pain noted to the posterior elements of the lumbar facets of L1, L2 and L3, L4 bilaterally. Fani's point is non-tender bilaterally. Paravertebral muscles are taut but non-spasmodic. Gonsalo's and compression tests are negative. MUSCULOSKELETAL: Motor is intact, 4/5 bilaterally. Patient walks with a steady gait, does not use assistive device. NEUROLOGICAL: +1 bilateral patellar and Achilles reflexes, negative polyneuropathy. IMPRESSION: Chronic lower back pain, lumbar spondylosis and lumbar degenerative disc. PLAN: We will restart the patient on gabapentin 100 mg t.i.d. I discussed the benefits of therapy with the patient and she agrees to move forward with aqua therapy at the [place] location. I did discuss vitamins with her as well as nutrition importance. Patient will be seen at the clinic in three months' time unless otherwise indicated. [facility] Signed and Approved by: ALICIA HERNANDEZ . 08/14/2021 16:24:00[facility]05-23-2022 Evaluation note* Encounter Date Diagnosis Assessment Notes Treatment Notes Treatment Clinical Notes June, Type 2 diabetes mellitus with hyperglycemia (ICD-10 - E11.65) [facility] Other 05-19-2022 Evaluation note* Encounter Date Diagnosis Assessment Notes Treatment Notes Treatment Clinical Notes June, Type 2 diabetes mellitus with hyperglycemia (ICD-10 - E11.65) ASSESSMENT: 1. Controlled, a Type 2 diabetes with A1c of 6.6% 2. Blood glucose levels have slight increase from A1c of 6.0 in November 2021. We will continue her Basaglar. She will reduce when she increases her Ozempic to 54 units daily. We did discuss titration based on 3 of 7 days below 100 reducing 5 units. After dose stabilization with Ozempic she can consider reintroducing 1 unit weekly of insulin to keep blood glucose a.m. 130 or under. She will increase her Ozempic to 1.5 x 2 weeks and then 2.0 thereafter. She will call if this is cost prohibitive. Her starting Weight and dose escalation is 250.5 pounds. She will continue Jardiance 25 mg p.o. daily. We will check labs and surveilled vitamin D and B12 and offer recommendations based on results. 3. Patient is alert, oriented and receptive to making changes or counseling. Notes: Seen for an assessment of current glucose pattern, changes in treatment plan, counseling and coordination of care related to diabetes, risks, and benefits of treatment, medications, side effects. Given handouts to reinforce concepts reviewed during counseling, see scanned notes. TOPICS REVIEWED: 1. Time was spent reviewing: a. Basic concepts of diabetes, progressive beta cell , concepts of basal/bolus/correcti ve insulin requirements. Basal: The goal is fasting blood glucose of 90-130mg. IF fasting blood glucose starts to run under 100mg 3x's/ week, decrease dose by 10%. Bolus: The goal is to hold the blood glucose level steady meal to meal. If pt. is going to have increased physical activity after a meal, decrease the schedule meal dose prior to the activity by 30-50%. If pt. skips a meal do not take this dose. Correction: The goal is to correct an elevated glucose back into the 100-150mg range b. Nutrition: Concepts of healthy diet, encouraged to decrease saturated fat in diet and increase non-starchy vegetables and fruits in diet. BMI: Pt. needs to select one small change to decrease caloric intake or increase physical activity to help decrease weight. c. Correct treatment of hypoglycemia, carry a glucose source at all times on your person, in vehicles, and at bedside. Can use glucose tablets/4, four ounces of pop or juice equal to 15 G of carbohydrate. Blood glucose should be 100 mg/dl or higher when driving. d. ADA glucose goals for age and medical complexity reviewed e. Patient questions addressed 2. Activity/exercise: Encouraged to start any form of physical activity. Start low level and increase slowly to a minimal goal of 150 minutes/week. Limit activity to what is allowed by other issues such as cardiac, pulmonary or orthopedic restrictions. 3. Standards of care: Reminded to have an annual dilated eye exam, A1C every 3 months, urine testing for microalbumin once/year, check feet daily and report any cuts or sores that do not appear to be healing. 4. Meter: Plan to check blood glucose: Please check blood glucose levels 4 times/day. Back to back meals reveal effectiveness of bolus dosing. The blood glucose data is used to determine insulin doses and confirm symptoms for hypoglycemia and hyperglcyemia. 5. [facility]. Contact office if any issues or concerns with patterns of hypoglycemia, hyperglycemia, or diabetes medication issues. 6. Prescriptions: Metformin, Ozempic, Basaglar, Jardiance sent to [facility] { per Marimar S today order all DM when first visit with her} June, Vitamin D deficiency (ICD-10 - E55.9) Learning About Vitamin D material was published to portal June, Dietary counseling and surveillance (ICD-10 - Z71.3) Learning About Healthy Weight material was published to portal June, Hyperlipidemia (ICD-10 - E78.5) Learning About High Cholesterol material was published to portal June, HTN (hypertension) (ICD-10 - I10) High Blood Pressure: Care Instructions material was published to portal June, [facility] current use of insulin (ICD-10 - Z79.4) June, BMI 45.0-49.9, adult (ICD-10 - Z68.42) Expect improvement with escalation of Ozempic to 2.0 mg subcu daily. [facility] Other 10-06-2021 Evaluation note* Encounter Date Diagnosis Assessment Notes Treatment Notes Treatment Clinical Notes Nov, Type 2 diabetes mellitus with hyperglycemia (ICD-10 - E11.65) ASSESSMENT: 1. controlled Type 2 diabetes with A1c of 6.0% 2. Blood glucose levels have been good with an average blood sugar of 99. 3. Patient is alert, oriented and receptive to making changes or counseling. Notes: Seen for an assessment of current glucose pattern, changes in treatment plan, counseling and coordination of care related to diabetes, risks, and benefits of treatment, medications, side effects. Given handouts to reinforce concepts reviewed during counseling, see scanned notes. TOPICS REVIEWED: 1. Time was spent reviewing: a. Basic concepts of diabetes, progressive beta cell , concepts of basal/bolus/correc tive insulin requirements. Basal: The goal is fasting blood glucose of 90-130mg. IF fasting blood glucose starts to run under 100mg 3x's/ week, decrease dose by 10%. Bolus: The goal is to hold the blood glucose level steady meal to meal. If pt. is going to have increased physical activity after a meal, decrease the schedule meal dose prior to the activity by 30-50%. If pt. skips a meal do not take this dose. Correction: The goal is to correct an elevated glucose back into the 100-150mg range b. Nutrition: Concepts of healthy diet, encouraged to decrease saturated fat in diet and increase non-starchy vegetables and fruits in diet. BMI: Pt. needs to select one small change to decrease caloric intake or increase physical activity to help decrease weight. c. Correct treatment of hypoglycemia, carry a glucose source at all times on your person, in vehicles, and at bedside. Can use glucose tablets/4, four ounces of pop or juice equal to 15 G of carbohydrate. Blood glucose should be 100 mg/dl or higher when driving. d. ADA glucose goals for age and medical complexity reviewed e. Patient questions addressed 2. Activity/exercise: Encouraged to start any form of physical activity. Start low level and increase slowly to a minimal goal of 150 minutes/week. Limit activity to what is allowed by other issues such as cardiac, pulmonary or orthopedic restrictions. 3. Standards of care: Reminded to have an annual dilated eye exam, A1C every 3 months, urine testing for microalbumin once/year, check feet daily and report any cuts or sores that do not appear to be healing. 4. Meter: Plan to check blood glucose: Please check blood glucose levels 4 times/day. Back to back meals reveal effectiveness of bolus dosing. The blood glucose data is used to determine insulin doses and confirm symptoms for hypoglycemia and hyperglcyemia. 5. Return to weight management in 2 months. Contact office if any issues or concerns with patterns of hypoglycemia, hyperglycemia, or diabetes medication issues. 6. Prescriptions: None needed at this time. Nov, [facility] current use of insulin (ICD-10 - Z79.4) Nov, HTN (hypertension) (ICD-10 - I10) High Blood Pressure: Care Instructions material was published to [employer] Nov, Hyperlipidemia (ICD-10 - E78.5) Learning About High Cholesterol material was published to [employer] Nov, Dietary counseling and surveillance (ICD-10 - Z71.3) Learning About Healthy Weight material was published to [employer] Nov, BMI 45.0-49.9, adult (ICD-10 - Z68.42) Nov, Albuminuria (ICD-10 - R80.9) Nov, BMI 50.0-59.9, adult (ICD-10 - Z68.43) Nov, Other Learning About Vitamin D material was published to [employer] Other Evaluation noteNo InformationNortFUJIAN HAIYUAN Other Evaluation noteNo assessment information available [facility] Work Phone: [place] general Narrative - Reported* Type Description Date Medical History RSD Medical History fibromyalgia Medical History hypertension Medical History type II diabetes Surgical History C section X3 Surgical History rotator cuff tear repair Surgical History back surgery x3 Surgical History knee surgery Surgical History hysteroscopy 14 Surgical History c5-c6 plates & screws Surgical History D&C 05/30 Hospitalization History see above [facility] Other Histscd general Narrative - Reported* Type Description Date Medical History RSD Medical History fibromyalgia Medical History hypertension Medical History type II diabetes Surgical History C section X3 Surgical History rotator cuff tear repair Surgical History back surgery x3 Surgical History knee surgery Surgical History hysteroscopy 4/14 Surgical History c5-c6 plates & screws Surgical History D&C /14 Surgical History knee replacement, Left 12/2020 Hospitalization History see above [facility] Other History general Narrative - Reported* Type Description Date Medical History fibromyalgia Medical History hypertension Medical History type II diabetes Surgical History C section X3 Surgical History rotator cuff tear repair Surgical History back surgery x3 Surgical History knee surgery Surgical History hysteroscopy 4/14 Surgical History c5-c6 plates & screws Surgical History D&C /14 Surgical History knee replacement, Left 12/2020 Hospitalization History see above [facility] Other History general Narrative - Reported* Type Description Date Medical History fibromyalgia Medical History hypertension Medical History type II diabetes Surgical History C section X3 Surgical History rotator cuff tear repair Surgical History back surgery x3 Surgical History knee surgery Surgical History hysteroscopy 4/14 Surgical History c5-c6 plates & screws Surgical History D&C / Surgical History knee replacement, Left 12/2020 Surgical History trigger finger release bilatera l 2021 Hospitalization History see above [facility] Other History general Narrative - Reported* Type Description Date Medical History fibromyalgia Medical History hypertension Medical History type II diabetes Surgical History C section X3 Surgical History rotator cuff tear repair Surgical History back surgery x3 Surgical History knee surgery Surgical History hysteroscopy 4/14 Surgical History c5-c6 plates & screws Surgical History D&C 05/30 Surgical History knee replacement, Left 12/2020 Surgical History trigger finger release bilatera l 2021 Hospitalization History see above Hospitalization History [facility] [place]- Flu 02/2022 [facility] Other History general Narrative - Reported* Type Description Date Medical History fibromyalgia Medical History hypertension Medical History type II diabetes Medical History Arthritis Medical History obesity Medical History chronic depression Medical History anxiety Surgical History C section X3 Surgical History rotator cuff tear repair Surgical History back surgery x3 Surgical History knee surgery Surgical History hysteroscopy 14 Surgical History c5-c6 plates & screws Surgical History D&C 05/30 Surgical History knee replacement, Left 12/2020 Surgical History trigger finger release bilatera l 2021 Hospitalization History see above Hospitalization History [facility] [place]- Flu 02/2022 [facility] Other History general Narrative - ReportedNoFUJIAN HAIYUAN Other Summary Purpose Family History No Family History Records Found Relationship Condition Age at Onset Recorded Date/T jaycee Not Specified Hypertension Unknown Myocardial infarction Unknown father Pneumonia Unknown Unknown Advance Directives No Advanced Directives Records Found Advance Directive Response Recorded Date/ Time Advance Directives No January 17, 2020 3:49pm Chief Complaint and Reason for Visit Chief Complaint DM M54.16 Chief Complaint DM M54.16 m54.16 Chief Complaint M54.16 m54.16 DM z78.0 Chief Complaint M54.16 m54.16 DM z78.0 Z98.1 M48.062 Reason for Referral Reason EMG bilat lower extr emities Diagnosis 1 BMI 50.0-59.9, adult (Z68.43) [facility] Referring Provider First Name Martine Referring Provider Last Name Eidson Referring Provider Specialty Nurse Pract itioner Referred Organization [facility] Referred Address [address] [place], [place],[address] Referred Provider Specialty Neurology Referral Priority Routine Reason evaluate and treat - tremors Diagnosis 1 BMI 50.0-59.9, adult (Z68.43) [facility] Referring Provider First Name Martine Referring Provider Last Name Eidson Referring Provider Specialty Nurse Pract itioner Referred Organization [facility] Referred Address [address] [place],[address] Referred Provider Specialty Neurology Referral Priority Routine Reason Evaluate and treat - osteoporosis Diagnosis 1 BMI 50.0-59.9, adult (Z68.43) Ref[facility] Referring Provider First Name Martine Referring Provider Last Name Eidson Referring Provider Specialty Nurse Pract itioner Referred Organization [facility] Referred Provider Jennifer Siu Referred Address [address] [place], [place],[address] Referred Provider Specialty Nurse Nancy segaloneyasmine Referral Priority Routine Additional Source Comments INFORMATION SOURCE (unrecogn ized section and content) DATE CREATED AUTHOR 08/12/2017 [facility] DATE CREATED AUTHOR AUTHOR'S ORGANIZ ATION 07/02/2022 [facility] DATE CREATED AUTHOR AUTHOR'S ORGANIZ ATION 02/04/2023 [facility] DATE CREATED AUTHOR AUTHOR'S ORGANIZ ATION 02/12/2023 [facility] dical Specialists EPIC REASON FOR VISIT (unrecogniz ed section and content) DM 3 month follow upNo [facility] Pt does not wish our services 03/28/21Cancelled. Requested we do not call to r/sDLC pen needlesDC VoicemailDC Basaglar refillDS Basaglar refillDS Jardiance RefillDM follow up, Type 2 IDDM, Accu Chek Guide MeterDS OzempicDS Basaglar alternativeDS Ozempic costDM, DM follow up, Type 2 IDDM, Accu Chek Guide Meter, [facility] Sunitha PAP questionDS RefillDM rescheduled appt, DM, DM follow up, Type 2 IDDM, Accu Chek Guide Meter, [facility], [facility] Visit CodesDS please callDS PAP/OzempicDS PAP OzempicDS med change?DS Tresiba/PAPDS Bella fell off3 month Follow up, Type 2 IDDM, Accu Chek Guide MeterDS Bella 28 weeks, 3 month Follow up, Type 2 IDDM, Accu Chek Guide MeterDS LabsDS Jardiance denial/ low income subsidyreferred by Lit Terry low back painDS-PAP OzempicMRI, Dexa resultsDM, Type 2 IDDM, Accu Chek Guide MeterDS PAP Tresibasurgical consult, emg results ct resultsDM, Type 2 IDDM, Accu Chek Guide MeterDCS Sunitha denialDS DM patient cancelledType 2 IDDM, Accu Chek Guide Meter Care Teams (unrecognized sec tion and content) Team Status: Active Member Role Status Dates Judith Newman , DO Primary Care Provider Active Team Status: Inactive Member Role Status Dates [facility] Attending Provider Active Judith Newman , DO Primary Care Provider Active Team Status: Active Member Role Status Dates Kalei Kasper , DO Primary Care Provider, Attending Provider Active Team Status: Inactive Member Role Status Dates Judith Newman , DO Primary Care Provider Active [facility] Attending Provider Active Goals (unrecognized section and content) Goals may be documented in a n alternate section FOR RECORDS PERTAINING TO PATIENTS WHO ARE OR HAVE BEEN ENROLLED IN A CHEMICAL DEPENDENCY/SUBSTANCEABUSE PROGRAM, SOME INFORMATION MAY BE OMITTED. This clinical summary was aggregated from multiple sources. Caution should be exercised in using it in the provision of clinical care. This summary normalizes information from multiple sources, and as a consequence, information in this document may materially change the coding, format and clinical context of patient data. In addition, data may be omitted in some cases. CLINICAL DECISIONS SHOULD BE BASED ON THE PRIMARY CLINICAL RECORDS. [facility] [employer] [facility]. provides no warranty or guarantee of the accuracy or completeness of information in this document.
--- NOTE | 2023-02-19 08:48 | PM.CN ---
Consult Note: HPI Data of Consult Patient: known to practice within the last 3 years Requesting Physician: Shama Allen NP Primary Care Provider: [facility] Consult Narrative Reason for consult: F/u Narrative: Lesli Clay a pleasant 62 year old female presents for evaluation and management of chronic low back pain and bilateral hip/buttock pain. Today pain 3/10 increasing to 8/10 with activity. Patient reports aching. Patient finding benefit to current medication regimen without side effects. Has not followed up with orthopedics since last visit as reported she would for bilateral knee pain. cc:: CC: Shama Allen NP Review of Systems ROS Status of ROS 10 or more systems reviewed and unremarkable except as noted in history and below Musculoskeletal Reports: back pain and joint pain PFSH PFSH Medical History Anesthesia complication ?T88.59XA - Other complications of anesthesia, initial encounter (ICD-10) Postmenopausal ?Z78.0 - Asymptomatic menopausal state (ICD-10) RSD (reflex sympathetic dystrophy) ?G90.50 - Complex regional pain syndrome I, unspecified (ICD-10) Low back pain ?M54.50 - Low back pain, unspecified (ICD-10) Osteoarthritis ?M19.90 - Unspecified osteoarthritis, unspecified site (ICD-10) Shingles ?B02.9 - Zoster without complications (ICD-10) Anxiety ?F41.9 - Anxiety disorder, unspecified (ICD-10) Obesity ?E66.9 - Obesity, unspecified (ICD-10) Heartburn ?R12 - Heartburn (ICD-10) Acid reflux ?K21.9 - Gastro-esophageal reflux disease without esophagitis (ICD-10) Diabetes 1.5, managed as type 2 ?E13.9 - Other specified diabetes mellitus without complications (ICD-10) Hypercholesterolemia ?E78.00 - Pure hypercholesterolemia, unspecified (ICD-10) Hypertension ?I10 - Essential (primary) hypertension (ICD-10) Surgical History History of fusion of cervical spine ?Z98.1 - Arthrodesis status (ICD-10) H/O hemorrhoidectomy ?Z98.890 - Other specified postprocedural states (ICD-10) History of delivery ?Z98.891 - History of uterine scar from previous surgery (ICD-10) Hx of arthroscopy of knee ?Z98.890 - Other specified postprocedural states (ICD-10) H/O repair of rotator cuff ?Z98.890 - Other specified postprocedural states (ICD-10) H/O dilation and curettage ?Z98.890 - Other specified postprocedural states (ICD-10) History of hysteroscopy ?Z98.890 - Other specified postprocedural states (ICD-10) H/O lumbar discectomy ?Z98.890 - Other specified postprocedural states (ICD-10) History of lumbar laminectomy ?Z98.890 - Other specified postprocedural states (ICD-10) S/P trigger finger release ?Z98.890 - Other specified postprocedural states (ICD-10) Meds Home Medications and Allergies Home Medications Medication Instructions Recorded Confirmed Type Pamelor 100 mg PO .hs 07/16/22 07/22/22 History aripiprazole 5 mg tablet (Abilify) 5 mg PO QDAY 07/16/22 07/22/22 History atorvastatin 40 mg tablet 40 mg PO QDAY 07/16/22 07/22/22 History bupropion HCl 300 mg 24 hr tablet, 300 mg PO QDAY 07/16/22 07/22/22 History extended release (Wellbutrin XL) hydrocodone 5 mg-acetaminophen 325 1 tab PO TID 07/16/22 07/22/22 History mg tablet lisinopril 5 mg tablet 5 mg PO QDAY 07/16/22 07/22/22 History metformin 1,000 mg tablet 1,000 mg PO BID 07/16/22 07/22/22 History metoprolol tartrate 25 mg tablet 25 mg PO BID 07/16/22 07/22/22 History omeprazole 20 mg capsule,delayed 20 mg PO QDAY 07/16/22 07/22/22 History release pregabalin 75 mg capsule (Lyrica) 75 mg PO BID 07/16/22 07/22/22 History tizanidine 4 mg capsule (Zanaflex) 4 mg PO Q12H 07/16/22 07/22/22 History hydrocodone 5 mg-acetaminophen 325 1 tab PO TID PRN pain #90 tabs 10/06/22 Rx mg tablet hydrocodone 5 mg-acetaminophen 325 1 tab PO TID PRN pain #90 tabs 10/30/22 Rx mg tablet hydrocodone 5 mg-acetaminophen 325 1 tab PO TID PRN pain #90 tabs 12/03/22 Rx mg tablet oxycodone-acetaminophen 5 mg-325 1 tab PO TID PRN pain #90 tabs 12/10/22 Rx mg tablet (Percocet) oxycodone-acetaminophen 7.5 mg-325 1 tab PO TID PRN pain #75 tabs 01/07/23 Rx mg tablet (Percocet) oxycodone-acetaminophen 7.5 mg-325 1 tab PO TID PRN pain #90 tabs 02/02/23 Rx mg tablet (Percocet) Allergies Allergy/AdvReac Type Severity Reaction Status Date / Time No Known Drug Allergies Allergy Verified 07/16/22 11:53 Exam Constitutional Documenting provider has reviewed patient's vital signs: yes Common normals: no apparent distress, oriented x3, healthy appearing, alert and well nourished General appearance: cooperative HENMT Common normals: normocephalic, hearing grossly normal bilaterally and moist oral mucous membranes Head and scalp: normocephalic Eye Common normals: PERRL Pupil: PERRL Neck & C-Spine Common normals: full ROM General: normal visual inspection Chest Common normals: inspection of chest normal Respiratory Common normals: normal respiratory effort, no retractions and no use of accessory muscles Back & Pelvis Thoracic spine/upper back: normal to inspection and thoracic ROM normal Lumbar spine/lower back: ROM limited, pain with ROM and straight leg raise negative bilaterally Sacroiliac joints: SI joint(s) abnormal Other: pain over bilateral superior gluteal nerves, worse upon palpation positive fabers/fadirs gaenslens and thigh thrust, tender over bilateral PSIS Extremity Common normals: normal to inspection and full ROM Right lower extremity: knee joint Left lower extremity: knee joint Other: R/L knee pain, limited ROM, decrease in strength. Neuro Common normals: oriented x3, CN's II-XII intact bilaterally, moves all extremities, no focal motor deficits, no sensory deficits noted and deep tendon reflexes 2+ bilaterally Sensorium/orientation: alert Gait (neuro): antalgic Motor exam: no movement abnormalities noted and strength abnormal (BLE 4/5) Psych Common normals: mental status grossly normal, thought process normal, cooperative, affect normal, speech normal and activity/motor behavior normal Speech: normal speech Thought process: normal thought process Assessment and Plan Assessment and Plan (1) Unspecified mononeuropathy of right lower limb: (2) Unspecified mononeuropathy of left lower limb: (3) Chronic prescription opiate use: Assessment and Plan: I feel these medications are improving the patient's quality of life and allow them to tolerate activities of daily living as well as participate in recreational activity.? The patient does not report intolerable side effects. The patient is NOT opioid naive and non-pharmacologic and non-opioid treatment has failed to significantly relieve the patient's pain and improve functionality. The patient has a diagnosis that is related to a somatic or visceral pain etiology. ? ?? I reviewed with the patient the potential risks and side effects with the use of? opioid medications including but not limited to respiratory depression,? sedation, and even . I verified the patient has access to naloxone should? these effects occur. I advised the patient to avoid the use of any other? sedation substances including alcohol, THC, and benzodiazepines while? taking opioid medications due to the risk of compounding side effects and? detrimental outcomes. I reviewed the [employer], pain treatment agreement, urine? drug screen, and opioid start talking forms. The patient was advised to let? their family know they had Naloxone in case they would need to administer? the medication.? ?? A drug screen was completed within the last year, and no aberrancies were noted regarding their use of controlled substances. The patient understands they are subject to the terms and conditions of the pain contract that they have signed. ? ?? I have checked an [place] report on this patient today and there are no aberrancies noted in the prescribing history.? (4) Muscle spasm: (5) Bilateral knee pain: (6) Obesity: Assessment and Plan: The patient was counseled that proper dietary changes and consistent participation in a home exercise plan can lead to weight loss. Weight loss can help to improve functionality in patients with chronic pain.? (7) Lumbar spondylosis: (8) Spinal stenosis of lumbar region: Plan bilateral superior gluteal nerve injection under fluoroscopy working towards thermal RFA continue percocet to 7.5-325mg BID-TID PRN moderate to severe pain narcan discussed and prescribed continue lyrica 75mg BID continue zanaflex 4mg BID continue Wellbutrin 300mg daily f/u 1-2 weeks after injection
== END 2023-02-19 08:08 | disposition home or self-care (01) ==
LOC: PM 08:07
PROVIDERS: Visit Provider Nurse Practitioner
DX: Z79.891 Long term (current) use of opiate analgesic (principal); G57.93 Unspecified mononeuropathy of bilateral lower limbs; M62.838 Other muscle spasm; M25.561 Pain in right knee; M25.562 Pain in left knee; E66.9 Obesity, unspecified; M47.816 Spondylosis without myelopathy or radiculopathy, lumbar region; M48.061 Spinal stenosis, lumbar region without neurogenic claudication
CPT/HCPCS: G0463

== ENCOUNTER 2023-03-24 07:52 | Day surgery (SDC) | payer MEDICARE, SELFPAY ==
--- OUTSIDE RECORDS SUMMARY | 2023-03-24 07:57 | XMS_ITS | CCD ---
Author Name Unknown Address [address] [place] [address] Organization [facility] Care Team Providers Care Motor Vehicle Licence Examiner Name Role Phone QUE BLAKE Unavailable Unavailable QUE BLAKE Unavailable Unavailable SELF, REFERRED Unavailable Unavailable OLIVE, ROSALES Unavailable Unavailable MS Unavailable Unavailable QUE BLAKE Unavailable Unavailable WIEPKING, LAUREN Unavailable Unavailable SELF, REFERRED Unavailable Unavailable RICKY, JULIEN Unavailable Unavailable OLIVE, ROSALES Unavailable Unavailable QUE BLAKE Unavailable Unavailable QUE BLAKE Unavailable Unavailable QUE BLAKE Unavailable Unavailable OLIVE, ROSALES Unavailable Unavailable Clifford Munoz Jr. Unavailable [phone] Clifford Munoz Unavailable Lili Burgos Unavailable [facility] Unava ilable OLIVIER ., DR ADAM Liu Admitting Unavailable AGUAYO ., DR ADAM Liu Attending Unavailable HERNANDEZ ., ALICIA Consulting Unavailable LAKSHMIPATHY ., NARENDRANATH Consulting Daphne vailable [facility] Unava ilable LAKSHMIPATHY ., NARENDRANATH Admitting Daphne vailable LAKSHMIPATHY ., NARENDRANATH Attending Daphne vailable [facility] Primary Care Unava ilable DR BLANE THOMAS Consulting Unavailable HERNANDEZ .ALICIA Admitting Unavailable HERNANDEZ ., ALICIA Attending Unavailable HERNANDEZ ., ALICIA Consulting Unavailable [facility] Care Unava ilable HALKER ., JASON Attending Unavailable HALKER .JASON Consulting Unavailable LAKSHMIPATHY ., NARENDRANATH Admitting Daphne vailable [facility] Care Unava ilable HALKER ., JASON Admitting Unavailable HALKER ., JASON Attending Unavailable LAKSHMIPATHY ., NARENDRANATH Consulting Daphne vailable [facility] Unava ilable AGUAYO ., DR ADAM Liu Admitting Unavailable AGUAYO ., DR ADAM Liu Attending Unavailable HERNANDEZ ., ALICIA Consulting Unavailable [facility] Unava ilable HERNANDEZ ., ALICIA Consulting Unavailable AGUAYO ., DR ADAM Liu Attending Unavailable AGUAYO ., DR ADAM Liu Admitting Unavailable [facility] Unava ilable AGUAYO ., DR ADAM Liu Admitting Unavailable AGUAYO ., DR ADAM Liu Attending Unavailable HERNANDEZ ., ALICIA Consulting Unavailable [facility] Unava ilable LAKSHMIPATHY ., NARENDRANATH Admitting Daphne vailable LAKSHMIPATHY ., NARENDRANATH Attending Daphne vailable LAKSHMIPATHY ., NARENDRANATH Consulting Daphne vailable Martine Tobias Unavailable DO Kalie Kasper Primary Care Provider DO Kalie Kasper Attending Provider DO Judith Newman Primary Care Provider [phone] [facility] Tobias Attending Provider DO Kalie Kasper Primary Care Provider DO Kalie Kasper Attending Provider Stoney Turner Unavailable Martine Tobias Admitting Unavailable Martine Tobias Attending Unavailable Judith Newman Primary Care Unavailable Martine Tobias Admitting Unavailable Martine Tobias Attending Unavailable Judith Newman Primary Care Unavailable Rumcurtislanelly, Kalie Admitting Unavailable Matthewlanelly, Kalie Primary Care Unavailable Majo, Kalie Attending Unavailable Martine Tobias Attending Unavailable Martine Tobias Admitting Unavailable Judith Newman Primary Care Unavailable Martine Tobias Admitting Unavailable Martine Tobias Attending Unavailable Judith Newman Primary Care Unavailable JUDITH NEWMAN Attending Unavailable [...] 2020 12:00am ARIPiprazole 10 mg oral tablet (16 sources) Atypical Antipsychotic Start: 12-17-2020 take 10 [...] release oral tablet (20 sources) Aminoketone Start: 12-17-2020 take 300 mg by mouth once daily Bupropion Hcl Active 300 MG PO Daily December 17, 2020 12:00am Cholecalciferol (20 sources) Vitamin D Start: 08-01-2022 Start: 08-01-2022 take 1 capsule by [facility] every week Start: 08-01-2022 take 1 capsule by [facility] every week Cholecalciferol 1.25 MG (74755 UT) 1 capsule Orally weekly for 56 days Then OtC 4000 u daily therafter Jul, Active take 2 tablets by [facility] every twenty-four hours Vitamin D3 50 MCG (2000 UT) 2 tablets Orally Once a day Not-Taking/PRN take 1 capsule by [facility] every week Cholecalciferol 100 MCG (4000 UT) 1 capsule Orally weekly for 56 days Then OtC 4000 u daily therafter Active take 1 capsule by [facility] every week Cholecalciferol 50 MCG (2000 UT) 1 capsule Orally weekly for 56 days Then OtC 4000 u daily therafter Active take 1 capsule by [facility] every week Cholecalciferol 1.25 MG (94458 UT) 1 capsule Orally weekly for 56 [...] hours Start: 12-17-2020 take 1 tablet by [facility] once daily Empagliflozin (Jardiance) 10 mg tablet Active 20 MG PO Daily December 17, 2020 12:00am 24 hr empagliflozin 12.5 mg / metFORMIN hydrochloride 1000 mg extended release oral tablet (2 sources) Biguanide, Sodium-Glucose Cotransporter 2 Inhibitor Start: 02-03-2023 [...] / losartan potassium 50 mg oral tablet (12 sources) Thiazide Diuretic, Angiotensin 2 Receptor Karrie [...] June, Active pregabalin 75 mg oral capsule (12 sources) take 1 capsule by mouth every twelve hours Pregabalin 75 MG 1 capsule Orally Twice a day Active Semaglutide (4 sources) Start: 12-17-2020 inject 1 mg by subcutaneous injection every week Semaglutide (Ozempic) 1 mg/dose (4 mg/3 mL) pen injector Active 1 MG SUBCUT every week December 17, 2020 12:00am tiZANidine 4 mg oral tablet (12 sources) Central alpha-2 Adrenergic Agonist take 1 [...] tablet by mickey th every six hours [place] Active take 1 tablet by mickey th twice daily as needed [place] 5-325 MG 1 tablet as needed Orally bid Active acetaminophen 325 mg / oxyCODONE hydrochloride 5 mg oral tablet (10 sources) Opioid Agonist Start: 01-03-2021 End: 10-30-2022 [...] Sep, Active lidocaine 0.05 mg/mg medicated patch (12 sources) Antiarrhythmic, Amide Local Anesthetic Start: 08-12-2022 Lidocaine 5 % 1 patc h remove after 12 hours Externally Once a day for 30 days Jul, Not-Taking/PRN Start: 08-12-2022 ozempic (2 mg/dose) 8 mg/3ml solution pen-injector (6 sources) Start: 07-08-2021 inject 2 mg by [...] 2020 11:44am [facility] - (12 sources) [facility] - as [...] knee joint] Onset: 09-08-2016 01-03-2021 Chronic Osteoporosis (14 sources) Senile osteoporosis; 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: [Age-related osteoporosis without current pathological fracture] Chronic Other aftercare (4 sources) Aftercare following joint replacement surgery; 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: [AFTERCARE FOLLOWING JOINT REPLACEMENT SURGERY] Onset: 09-25-2016 Chronic Other aftercare (20 sources) Long-term current use of insulin; 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: [MCC (current) use of insulin] Episodic Other aftercare (10 sources) MCC (current) use of insulin; 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: [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 Z79.4] Onset: 11-21-2020 [...] Arthrodesis status Episodic Other connective tissue disease (9 sources) History of lumbar fusion; 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: [Arthrodesis status] Episodic Other nervous system disorders (4 sources) Other specified mononeuropathies of right lower limb; 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: [OTH SPEC MONONEUROPATH RT LOW LIMB] Onset: 06-03-2022 Chronic Other nervous system disorders (2 sources) Other chronic pain; 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: [OTHER CHRONIC PAIN] Onset: 05-23-2022 Chronic Other nervous system disorders (6 sources) Chronic pain; 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: [Other chronic pain] Chronic Other nervous system disorders (9 sources) Tremor; 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: [Tremor, unspecified] Episodic Other [...] syndrome, not elsewhere classified] Onset: 08-05-2021 Chronic Spondylosis; intervertebral disc disorders; other back problems (20 sources) Muscle spasm of back; 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: [Radiculopathy, lumbar region] Onset: 11-06-2021 Episodic Unclassified (11 sources) Body mass index (BMI) 50-59.9 , adult; 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: [BODY MASS INDEX (BMI) 50-59.9 , ADULT] Onset: 09-08-2016 Resolved: 11-21-2020 Chronic Unclassified (1 source) MCC (current) use of oral hypoglycemic drugs; 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: [CUSTODIAL (CURRENT) USE OF ORAL HYPOGLYCEMIC DRUGS] Onset: [...] AND SUBCUTANEOUS TISSUE, UNSP] Onset: 09-20-2016 Episodic Unclassified (1 source) LOW BACK PAIN, UNSPECIFIED; 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: [LOW BACK PAIN, UNSPECIFIED] Onset: 08-01-2021 Unclassified (1 source) Low back pain, unspecified M54.50 Results Test Name Value Interpretation Reference Range Facility A1C HEMOGLOBINon 02-03-2023 HbA1c (Bld) [Mass fraction] 9.7 % [facility] Other Glucose - FINGER STICKon Glucose [Mass/Vol] 178 mg/dL [facility] Other HbA1c (Bld) [Mass fraction]o n 02-03-2023 A1C HEMOGLOBIN [facility] Other Glucose - FINGER STICKon Glucose [Mass/Vol] 180 mg/dL [facility] Other CT lumbar spine w [facility] 10-17 CT lumbar spine w [facility] Main [address] [address] [address] Scan Report Signed Patient: Lesli Clay MR#: [id number] : 1960 Acct:[id number] Age/Sex: 62 / F ADM Date: 10/30/22 Loc: XD Room: Type: [facility] Attending Dr: Martine SANZ Copies to: [facility] [...] Mindy Tomas M.D.10/30/2022 4:11 PM Dictation Location: [facility]14 Transcribed By: [facility] 10/30/22 1611 Dictated By: Mindy Tomas II, MD 10/30/22 1602 Signed By: 10/30/22 1611 [facility] IR myelogram spine lumbosacr aby 10-30-2022 IR myelogram spine lumbosacral [facility] [place] [address] Interventional Radiology Rpt Signed Patient: Lesli Clay MR#: [id number] : 1960 Acct:[id number] Age/Sex: 62 / F ADM Date: 10/30/22 Loc: XD Room: Type: [facility] Attending Dr: Martine SANZ Copies to: UMU [...] Mindy Tomas M.D.10/30/2022 3:59 PM Dictation Location: [place] [address] Transcribed By: [facility] 10/30/22 1550 Dictated By: Mindy Tomas II, MD 10/30/22 1554 Signed By: 10/30/22 1554 Normal [facility] A1C HEMOGLOBINon 10-03-2022 HbA1c (Bld) [Mass fraction] 8.3 % [facility] Other Glucose - FINGER STICKon Glucose [Mass/Vol] 211 mg/dL [facility] Other HbA1c (Bld) [Mass fraction]o n 10-03-2022 A1C HEMOGLOBIN [facility] Other Creatinine (Bld) [Mass/Vol]O rdered By: Martine Tobias on 09-19-2022 Creatinine [Mass/Vol] 0.7 mg/dL 0.6-1.3 [facility] Comment on above: ER/ESD physician is notified/shown all ISTAT results.Critical values may be confirmed by laboratory testing ifdeemed necessary by ER attending doctor. MR lumbar spine wo conon MR lumbar spine wo [facility] [place] [address] MRI Report Signed Patient: Lesli Clay MR#: [id number] : 1960 Acct:[id number] Age/Sex: 62 / F ADM Date: 09/19/22 Loc: MR Room: Type: [facility] Attending Dr: Martine SANZ Copies to: UMU [...] Mindy Tomas M.D.09/19/2022 4:07 PM Dictation Location: [facility]07 Transcribed By: [facility] 09/19/22 1607 Dictated By: Mindy Tomas II, MD 09/19/22 1600 Signed By: 09/19/22 1607 [facility] XR lumbar spine 6V w bending on 08-18-2022 XR lumbar spine 6V w bending [facility] Main [place] [address] [place] [address] XRay Report Signed Patient: Lesli Clay MR#: [id number] : 1960 Acct:[id number] Age/Sex: 62 / F ADM Date: 08/18/22 Loc: XD Room: Type: [facility] Attending Dr: Martine SANZ Copies to: UMU [...] Dodson Jr., D.OGhulam08/18/2022 12:31 PM Dictation Location: [facility]12 Transcribed By: [facility] 08/18/22 1231 Dictated By: Noman Dodson Jr, DO 08/18/22 1230 Signed By: 08/18/22 1231 Normal [facility] A1C HEMOGLOBINon 06-06-2022 HbA1c (Bld) [Mass fraction] 8.0 % [employer] Other Glucose - FINGER STICKon Glucose [Mass/Vol] 156 mg/dL [employer] Other HbA1c (Bld) [Mass fraction]o n 06-06-2022 A1C HEMOGLOBIN [facility] Other POINT OF CARE GLUCOSEon 05-17 Glucose [Mass/Vol] 185 mg/dL Critically high 74-106 [facility] Comment on above: Performed By: #### P OCGLUC #### [facility] [address] [place] [address] Dr. Keegan Neal A1C HEMOGLOBINon 03-06-2022 HbA1c (Bld) [Mass fraction] 7.8 % [facility] Other CREATININEon 03-06-2022 Creatinine [Mass/Vol] 0.82 mg/dL Normal 0.55-1.02 [facility] Comment on above: Performed By: #### C EJ #### [facility] [address] [address] [address] Keegan Neal EGFR-AF TOGOLESE >60 Normal >=60 [facility] Comment on above: Performed By: #### C EJ #### [facility] [address] [address] [address] Keegan Neal EGFR-NON AF TOGOLESE >60 Normal >=60 [facility] Comment on above: Performed By: #### C EJ #### [facility] [address] [address] LSPINE WO W [...] by: BLANE THOMAS Date: 2022-03-06 11:22 Normal [facility] Glucose - FINGER STICKon Glucose [Mass/Vol] 200 mg/dL [employer] Other HbA1c (Bld) [Mass fraction]o n 03-06-2022 A1C HEMOGLOBIN [employer] Other A1C HEMOGLOBINon 10-28-2021 HbA1c (Bld) [Mass fraction] 7.0 % [employer] Other Glucose - FINGER STICKon Glucose [Mass/Vol] 110 mg/dL [employer] Other HbA1c (Bld) [Mass fraction]o n 10-28-2021 A1C HEMOGLOBIN [employer] Other A1C HEMOGLOBINon 07-04-2021 HbA1c (Bld) [Mass fraction] 6.6 % [employer] Other Glucose - FINGER STICKon Glucose [Mass/Vol] 110 mg/dL [employer] Other HbA1c (Bld) [Mass fraction]o n 07-04-2021 A1C HEMOGLOBIN [employer] Other A1C HEMOGLOBINon 11-21-2020 HbA1c (Bld) [Mass fraction] 6.0 % [employer] Other Glucose - FINGER STICKon Glucose [Mass/Vol] 98 mg/dL [employer] Other HbA1c (Bld) [Mass fraction]o n 11-21-2020 A1C HEMOGLOBIN [employer] Other Discharge Summaryon 09-26-19 Discharge Summary MR#: [id number] [facility] Lesli [facility] Admitted: 09/08/2016 Discharged: [...] metformin, Pamelor, Wellbutrin, docusate, and Percocet.Electronically Signed by:Qeu Blake M.D. 10/05/2016 11:23 A Que Blake M.D. I have reviewed this discharge summary and confirmed the resident'sdocumentation. Please note that there may be additional documentation fromme. Date Dict: 09/24/2016/02:52 P/Que Cano M.D.Date Trans: 09/25/2016 08:08 A/mmoDN_JN:[id number] cc: Rosales Taylor M.D. [address] [facility] [address] [address] [facility] KNEE RIGHT 3 Son 7 KNEE RIGHT 3 [facility]ekfinfmm[address] [place] [address] P atient Name: LESLI CLAY : 1960ex: FAge: Race: WhiteMRN: [id number]. Location: 84Patient Status: Date: 09/25/2016 8:15:00 AMCompleted Date: 09/25/2016 08:22 AMRequesting Provider: QUE BLAKE Attending Provider: Report Copy To: Signs & Symptoms: Z96.651 Presence of right artificial knee joint L91Azskive: AthenaComments: , , , Ordering Provider - QUE BLAKE MD , Exam: KNEE RIGHT 3 VWSAccession #: [id number] ======KNEE RIGHT 3 VWS 09/25/2016 8:22 AM [...] changes. Electronically signed by:Mindy Tomas. Transcribed by: [email or web address], User Resident: Electronically Signed by: MINDY TOMAS @ 09/25/2016 04:44 PM Normal [facility] Comment on above: Order Comment: , , = ========= , Ordering Provider - QUE BLAKE MD , Consultationon 09-21-2016 Consultation MR#: [id number] Name[facility]li Clay Date of Service: [...] September 23, 2016, with Dr. Blake. In [facility], she was placed in a hinged knee brace to prevent flexion of theknee. She was given renewal of Keflex. We prescribed [place] for pain controland we applied an Armando wrap for edema control.Reviewed By:Desmond Mena MD 09/22/2016 08:26 AElectronically Signed by:Martin Fonseca MD 09/25/2016 03:22 P ___Martin Fonseca MD I was not present but assume all responsibility for the exam. NOTBILLABLEDate Dict: 09/21/2016/10:51 A/Desmond Mena MDDate Trans: 09/21/2016 11:52 A/[id number]_JN:[id number] cc: Rosales Taylor M.D. [address] [facility] [address] Normal [facility] BASIC METABOLIC PANELon 08-0 Calcium 9.6 mg/dL Normal 8.6-10.3 [facility] Comment on above: Performed By: #### 0 0071 ####[facility] [place] [address], [facility] Chloride 99 mmol/L Normal 98-107 [facility] Comment on above: Performed By: #### 0 0071 ####[facility] [place] [address], [facility] CO2 29 mmol/L Normal 21-31 [facility] Comment on above: Performed By: #### 0 0071 ####[facility] [place] [address], [facility] Creatinine 0.91 mg/dL Normal 0.60-1.20 [facility] Comment on above: Performed By: #### 0 0071 ####[facility] [facility] [place] [address], [facility] eGFR (black) mL/min/{1.73_m2} Normal >60 [facility] Comment on above: Performed By: #### 0 0071 ####[facility] [facility] [place] [address], [facility] eGFR (non-black) mL/min/{1.73_m2} Normal >60 Th [facility] Comment on above: Performed By: #### 0 0071 ####[facility] [facility] [place] [address], [facility] Glucose mass conc 151 mg/dL High 70-100 [facility] Comment on above: Performed By: #### 0 0071 ####[facility] [facility] [place] [address], [facility] Potassium molar conc 4.0 mmol/L Normal 3.5-5.1 [facility] [place] Comment on above: Performed By: #### 0 0071 ####[facility] [facility] [place] [place] [address], [facility] Sodium 137 mmol/L Normal 136-145 [facility] Comment on above: Performed By: #### 0 0071 ####[facility] [place] [address], [facility] Urea nitrogen 13 mg/dL Normal 7-25 [facility] Comment on above: Performed By: #### 0 0071 ####[facility] C REACTIVE PROTEINon 017 C reactive protein (CRP) 28.5 mg/L High 0.0-7.0 [facility] [place] Comment on above: Performed By: #### 0 0071 ####[facility] [facility].[address] CBC W/DIFFon 09-20-2016 Basophils Auto #/vol (Bld) 0.5 % Normal 0.0-2.0 [facility] [place] Comment on above: Performed By: #### 0 0071 ####[place] [address] [facility].[address] Eosinophils/100 leukocytes 2.1 % Normal 0.0-5.0 [facility] Comment on above: Performed By: #### 0 0071 ####[facility] [facility].[address] Erythrocyte distribution width Auto Ratio (RBC) 17.1 % High 11.5-16.9 [facility] [place] Comment on above: Performed By: #### 0 0071 ####[place] [address] [facility].[address] Erythrocytes (RBC) 3.39 mill/mm3 Low 3.50-5.50 [facility] Comment on above: Performed By: #### 0 0071 ####[facility] [facility].[address] Hematocrit (HCT) 31.4 % Low 36.0-48.0 [facility] Comment on above: Performed By: #### 0 0071 ####[place] [address] [facility].[address] Hemoglobin mass conc (Bld) 10.3 g/dL Low 12.0-15.0 [facility] Comment on above: Performed By: #### 0 0071 ####[facility] Lymphocytes/100 leukocytes 19.8 % Low 20.0-40.0 [facility] Comment on above: Performed By: #### 0 0071 ####[facility] MCH 30.3 pg Normal 24.0-32.0 [facility] Comment on above: Performed By: #### 0 0071 ####[place] [address] MCHC mass conc (RBC) 32.7 g/dL Normal 32.0-36.0 [facility] Comment on above: Performed By: #### 0 0071 ####[address] MCV 92.6 fL Normal 80.0-100.0 [facility] Comment on above: Performed By: #### 0 0071 ####[place] [address] METHOD Normal [facility] Comment on above: Result Comment: Auto mated differential performedNormal RBC Morphology Performed By: #### 0 0071 ####[facility] MONOS 5.8 % Normal 2-8 [facility] Comment on above: Performed By: #### 0 0071 ####[place] [address] Neutrophils/100 leukocytes 71.8 % High 50-70 [facility] Comment on above: Performed By: #### 0 0071 ####[facility] [place] [address] PLAT CNT 400 Thou/mm3 Normal 100-400 [facility] Comment on above: Performed By: #### 0 0071 ####[facility] [place] [address], [facility] WBC (Leukocytes) 10.6 Thou/mm3 High 4.0-10.0 [facility] Comment on above: Performed By: #### 0 0071 ####[facility] [place] [address], [facility] SEDIMENTATION RATEon 017 SED RATE 107 mm/hr High 0-20 [facility] Comment on above: Performed By: #### 0 0071 ####[facility] [place] [address], [facility] POC GLUCOSE LABon 09-15-2016 Glucose mass conc 187 mg/dL High 70-100 [facility] Comment on above: Performed By: #### 0 0071 ####[facility] [place] [address], [facility] Glucose mass conc 153 mg/dL High 70-100 [facility] Comment on above: Performed By: #### 5 610, 79751 ####[facility] [place] [address], [facility] POC GLUCOSE LABon 09-14-2016 Glucose mass conc 198 mg/dL High 70-100 [facility] Comment on above: Performed By: #### 5 610, 70344 ####[facility] [place] [address], [place] Glucose mass conc 188 mg/dL High 70-100 [facility] Comment on above: Performed By: #### 5 610, 23524 ####[facility] [place] [address], [place] Glucose mass conc 192 mg/dL High 70-100 [facility] Comment on above: Performed By: #### 5 6100, 23425 ####[facility] [place] [address], [place] Glucose mass conc 155 mg/dL High 70-100 [facility] Comment on above: Performed By: #### 5 6100, 02594 ####[facility] [place] [address], [place] POC GLUCOSE LABon 09-13-2016 Glucose mass conc 223 mg/dL High 70-100 [facility] Comment on above: Performed By: #### 5 6100, 34654 ####[facility] [place] [address], [place] Glucose mass conc 212 mg/dL High 70-100 [facility] Comment on above: Performed By: #### 5 6100, [id number] ####[facility] [place] [address], [place] Glucose mass conc 111 mg/dL High 70-100 The [facility] Comment on above: Performed By: #### 5 6100, 70927 ####[facility] [place] [address], [place] Glucose mass conc 199 mg/dL High 70-100 The [facility] Comment on above: Performed By: #### 5 6100, 29427 ####[facility] [place] [address], [place] Glucose mass conc 149 mg/dL High 70-100 The [facility] Comment on above: Performed By: #### 5 6100, 84883 ####[facility] [place] [address], [place] POC GLUCOSE LABon 09-12-2016 Glucose mass conc 205 mg/dL High 70-100 The [facility] Comment on above: Performed By: #### 5 6100, 97774 ####[facility] [place] [address], [place] Glucose mass conc 132 mg/dL High 70-100 The [facility] Comment on above: Performed By: #### 5 610, 58832 ####[facility] [place] [address], [place] Glucose mass conc 184 mg/dL High 70-100 The [facility] Comment on above: Performed By: #### 5 6100, 65308 ####[facility] [place] [address], [place] Glucose mass conc 158 mg/dL High 70-100 The [facility] Comment on above: Performed By: #### 5 6100, 04009 ####[facility] [place] [address], [place] POC GLUCOSE LABon 09-11-2016 Glucose mass conc 194 mg/dL High 70-100 The [facility] Comment on above: Performed By: #### 5 6100, 18721 ####[facility] [place] [address], [place] Glucose mass conc 192 mg/dL High 70-100 The [facility] Comment on above: Performed By: #### 5 6100, 02174 ####[facility] [place] [address], [place] Glucose mass conc 221 mg/dL High 70-100 [facility] Comment on above: Performed By: #### 5 610, 38117 ####[facility] [place] [address], [place] Glucose mass conc 147 mg/dL High 70-100 The [facility] Comment on above: Performed By: #### 5 610, 20123 ####[facility] [place] [address], [place] POC GLUCOSE LABon 09-10-2016 Glucose mass conc 224 mg/dL High 70-100 The [facility] Comment on above: Performed By: #### 5 6101, 66173 ####[facility] [place] [address], [facility] Glucose mass conc 156 mg/dL High 70-100 The [facility] Comment on above: Performed By: #### 1 0008 ####[facility] [place] [address], [facility] Glucose mass conc 240 mg/dL High 70-100 The [facility] Comment on above: Performed By: #### 1 0008 ####[facility] [place] [address], [facility] Glucose mass conc 171 mg/dL High 70-100 The [facility] Comment on above: Performed By: #### 1 0008 ####[facility] [place] [address], [facility] BASIC METABOLIC PANELon 08-17 Calcium 8.4 mg/dL Low 8.6-10.3 The [facility] Comment on above: Order Comment: No: D o not add to previous draw Performed By: #### 1 0008 ####[facility] [place] [address], [facility] Chloride 99 mmol/L Normal 98-107 The [facility] Comment on above: Order Comment: No: D o not add to previous draw Performed By: #### 1 0008 ####[facility] [place] [address], [facility] CO2 27 mmol/L Normal 21-31 The [facility] Comment on above: Order Comment: No: D o not add to previous draw Performed By: #### 1 0008 ####[facility] [place] [address], [facility] Creatinine 1.11 mg/dL Normal 0.60-1.20 The [facility] Comment on above: Order Comment: No: D o not add to previous draw Performed By: #### 1 0008 ####[facility] [place] [address], [facility] eGFR (black) mL/min/{1.73_m2} Normal >60 The [facility] Comment on above: Order Comment: No: D o not add to previous draw Performed By: #### 1 0008 ####[facility] [place] [address], [facility] eGFR (non-black) 51 ml/min/1.73sq m Abnormal >60 The [facility] Comment on above: Order Comment: No: D o not add to previous draw Performed By: #### 1 0008 ####[facility] [facility] [place] [address], [facility] Glucose mass conc 161 mg/dL High 70-[address] [facility] Comment on above: Order Comment: No: D o not add to previous draw Performed By: #### 1 0008 ####[place] [address] [facility] [place] [place] [address], [facility] Potassium molar conc 4.2 mmol/L Normal 3.5-5.1 The [facility] Comment on above: Order Comment: No: D o not add to previous draw Performed By: #### 1 0008 ####[facility] [place] [address], [facility] Sodium 134 mmol/L Low 136-145 The [facility] Comment on above: Order Comment: No: D o not add to previous draw Performed By: #### 1 0008 ####[place] [address] [place] [address], [facility] Urea nitrogen 24 mg/dL Normal 7-25 The [facility] Comment on above: Order Comment: No: D o not add to previous draw Performed By: #### 1 0008 ####[facility] [facility].[address] CBC W/DIFFon 09-09-2016 Basophils Auto #/vol (Bld) 0.2 % Normal 0.0-2.0 The [facility] Comment on above: Order Comment: No: D o not add to previous draw Performed By: #### 1 0008 ####[facility] [facility].[address] Eosinophils/100 leukocytes 1.0 % Normal 0.0-5.0 The [facility] Comment on above: Order Comment: No: D o not add to previous draw Performed By: #### 1 0008 ####[facility] Erythrocyte distribution width Auto Ratio (RBC) 16.9 % Normal 11.5-16.9 The [facility] Comment on above: Order Comment: No: D o not add to previous draw Performed By: #### 1 0008 ####[facility] Erythrocytes (RBC) 3.31 mill/mm3 Low 3.50-5.50 The [facility] Comment on above: Order Comment: No: D o not add to previous draw Performed By: #### 1 0008 ####[facility] [facility].[address] Hematocrit (HCT) 30.7 % Low 36.0-48.0 The [facility] Comment on above: Order Comment: No: D o not add to previous draw Performed By: #### 1 0008 ####[facility] Hemoglobin mass conc (Bld) 10.0 g/dL Low 12.0-15.0 The [facility] Comment on above: Order Comment: No: D o not add to previous draw Performed By: #### 1 0008 ####[facility] [place] [address], [facility] Lymphocytes/100 leukocytes 25.6 % Normal 20.0-40.0 The [facility] Comment on above: Order Comment: No: D o not add to previous draw Performed By: #### 1 0008 ####[facility] [place] [address], [facility] MCH 30.3 pg Normal 24.0-32.0 The [facility] Comment on above: Order Comment: No: D o not add to previous draw Performed By: #### 1 0008 ####[facility] MCHC mass conc (RBC) 32.7 g/dL Normal 32.0-36.0 The [facility] Comment on above: Order Comment: No: D o not add to previous draw Performed By: #### 1 0008 ####[facility] [place] [address], [facility] MCV 92.7 fL Normal 80.0-100.0 The [facility] Comment on above: Order Comment: No: D o not add to previous draw Performed By: #### 1 0008 ####[facility] [place] [address], [facility] METHOD Normal The [facility] Comment on above: Order Comment: No: D o not add to previous draw Result Comment: Auto mated differential performedNormal RBC Morphology Performed By: #### 1 0008 ####[facility] [place] [address], [facility] MONOS 6.9 % Normal 2-8 The [facility] Comment on above: Order Comment: No: D o not add to previous draw Performed By: #### 1 0008 ####[facility] [place] [address], [facility] Neutrophils/100 leukocytes 66.3 % Normal 50-70 The [facility] Comment on above: Order Comment: No: D o not add to previous draw Performed By: #### 1 0008 ####[facility] PLAT CNT 304 Thou/mm3 Normal 100-400 The [facility] Comment on above: Order Comment: No: D o not add to previous draw Performed By: #### 1 0008 ####[facility] WBC (Leukocytes) 8.7 Thou/mm3 Normal 4.0-10.0 [facility] Comment on above: Order Comment: No: D o not add to previous draw Performed By: #### 1 0008 ####[facility] Operative Reporton 7 Operative Report MR#: [id number]li Clay Room #: [id number] Discharge Date: Birthdate: 1960 OPERATIVE REPORTDATE OF [...] 09/08/2016/08:19 P/Que Cano M.D.Date Trans: 09/09/2016 04:17 A/Nigel_JN:[id number] cc: Rosales Taylor M.D. [address] [facility] [address] Normal The [facility] POC GLUCOSE LABon 09-09-2016 Glucose mass conc 229 mg/dL High 70-100 The [facility] Comment on above: Performed By: #### 1 0008 ####[facility] [facility] [place] [place] [address], [place] Glucose mass conc 159 mg/dL High 70-100 The [facility] Comment on above: Performed By: #### 1 0008 ####[facility] [facility] [place] [address], [place] Glucose mass conc 182 mg/dL High 70-100 The [facility] Comment on above: Performed By: #### 1 0008 ####[facility] [facility] [place] [address], [place] Glucose mass conc 159 mg/dL High 70-100 The [facility] Comment on above: Performed By: #### 1 0008 ####[facility] [place] [address], [place] Glucose mass conc 172 mg/dL High 70-100 The [facility] Comment on above: Performed By: #### 1 0008 ####[facility] [place] [address], [place] POC GLUCOSE LABon 09-08-2016 Glucose mass conc 175 mg/dL High 70-100 The [facility] Comment on above: Performed By: #### 8 5499 ####[facility] [facility] [place] [place] [address], [facility] Glucose mass conc 165 mg/dL High 70-100 The [facility] Comment on above: Performed By: #### 8 5499 ####[facility] [facility] [place] [place] [address], [facility] Glucose mass conc 173 mg/dL High 70-100 The [facility] Comment on above: Performed By: #### 8 5499 ####[facility] [facility] [place] [place] [address], [facility] PORTABLE KNEE RIGHT 2 VWSon 09-08-2016 PORTABLE KNEE RIGHT 2 S [facility] [address] [place] [id number] P atient Name: LESLI CLAY : 1960ex: FAge: Race: WhiteMRN: [id number]. Location: OUTPPatient Status: OVisit #: [id number] Date: 09/08/2016 2:05:00 PMCompleted Date: 09/08/2016 02:45 PMRequesting Provider: QUE CANO Attending Provider: QUE BLAKE Report Copy To: Signs & Symptoms: Pain ( specify Location)History: Patient history not availableComments: Hardware Evaluation, please do in PACUExam: PORTABLE KNEE RIGHT 2 VWSAccession #: [id number] ======PORTABLE KNEE RIGHT 2 VWS 09/08/2016 2:45 [...] arthroplasty Electronically signed by:Joan Cormier. Transcribed by: [email or web address], User Resident: Electronically Signed by: JOAN CORMIER @ 09/08/2016 02:48 PM Normal The [facility] Comment on above: Order Comment: Hardw are Evaluation, please do in PACU APTTon 08-25-2016 aPTT 33.0 s Normal 25.0-35.0 The [facility] Comment on above: Result Comment: ALL [...] THIS PURPOSE. Performed By: #### 5 6101, 29218 ####[facility] [facility] [place] [place] [address], [facility] BASIC METABOLIC PANELon - Calcium 9.9 mg/dL Normal 8.6-10.3 The [facility] Comment on above: Performed By: #### 0 0071 ####[facility] [place] [address], [facility] Chloride 96 mmol/L Low 98-107 The [facility] Comment on above: Performed By: #### 0 0071 ####[facility] [facility] [place] [address], [facility] CO2 29 mmol/L Normal 21-31 The [facility] Comment on above: Performed By: #### 0 0071 ####[facility] [place] [address], [facility] Creatinine 0.94 mg/dL Normal 0.60-1.20 [facility] [place] Comment on above: Performed By: #### 0 0071 ####[facility] [place] [address], [facility] eGFR (black) mL/min/{1.73_m2} Normal >60 The [facility] Comment on above: Performed By: #### 0 0071 ####[facility] [facility] [place] [address], [facility] eGFR (non-black) mL/min/{1.73_m2} Normal >60 Th e [facility] Comment on above: Performed By: #### 0 0071 ####[facility] [place] [address], [facility] Glucose mass conc 128 mg/dL High 70-[address] [facility] Comment on above: Performed By: #### 0 0071 ####[facility] [facility] [place] [place] [address], [facility] Potassium molar conc 4.0 mmol/L Normal 3.5-5.1 [facility] [place] Comment on above: Performed By: #### 0 0071 ####[facility] [facility] [place] [address], [facility] Sodium 135 mmol/L Low 136-145 [facility] [place] Comment on above: Performed By: #### 0 0071 ####[facility] [facility].[address] Urea nitrogen 15 mg/dL Normal 7-25 [facility] Comment on above: Performed By: #### 0 0071 ####[facility] [place] [address], [facility] CBC W/DIFFon 08-25-2016 Basophils Auto #/vol (Bld) 0.2 % Normal 0.0-2.0 The [facility] Comment on above: Performed By: #### 5 0103 ####[facility] [place] [address], [facility] Eosinophils/100 leukocytes 1.6 % Normal 0.0-5.0 The [facility] Comment on above: Performed By: #### 5 0103 ####[facility] Erythrocyte distribution width Auto Ratio (RBC) 16.9 % Normal 11.5-16.9 The [facility] Comment on above: Performed By: #### 5 0103 ####[facility] [facility] [place] [address], [facility] Erythrocytes (RBC) 4.18 mill/mm3 Normal 3.50-5.50 The [facility] Comment on above: Performed By: #### 5 0103 ####[facility] [facility] Hematocrit (HCT) 38.2 % Normal 36.0-48.0 The [facility] Comment on above: Performed By: #### 5 0103 ####[facility] [facility].[address] Hemoglobin mass conc (Bld) 12.5 g/dL Normal 12.0-15.0 The [facility] Comment on above: Performed By: #### 5 3 ####[facility] [facility] [place] [place] [address], [facility] Lymphocytes/100 leukocytes 21.4 % Normal 20.0-40.0 The [facility] Comment on above: Performed By: #### 5 3 ####[facility] [place] [address], [facility] MCH 29.9 pg Normal 24.0-32.0 The [facility] Comment on above: Performed By: #### 5 0103 ####[facility] [place] [address], [facility] MCHC mass conc (RBC) 32.7 g/dL Normal 32.0-36.0 [facility] [place] Comment on above: Performed By: #### 5 0103 ####[facility] [place] [address], [facility] MCV 91.4 fL Normal 80.0-100.0 [facility] [place] Comment on above: Performed By: #### 5 0103 ####[facility] [place] [address], [facility] METHOD Normal The [facility] Comment on above: Result Comment: Auto mated differential performedNormal RBC Morphology Performed By: #### 5 0103 ####[facility] MONOS 5.2 % Normal 2-8 [facility] [place] Comment on above: Performed By: #### 5 0103 ####[facility] Neutrophils/100 leukocytes 71.6 % High 50-70 [facility] [place] Comment on above: Performed By: #### 5 0103 ####[facility] [place] [address], [facility] PLAT CNT 351 Thou/mm3 Normal 100-400 The [facility] Comment on above: Performed By: #### 5 0103 ####[facility] [place] [address], [facility] WBC (Leukocytes) 12.0 Thou/mm3 High 4.0-10.0 [facility] Comment on above: Performed By: #### 5 0103 ####[facility] PROTHROMBIN TIMEon 07-10-201 7 INR Coag RelTime (PPP) 0.97 {INR} Normal 0.91-1.16 [facility] Comment on above: Result Comment: ACCC P RECOMMENDED INR FOR WARFARIN THERAPY CONDITION INRPROPHYLAXIS OF VENOUS THROMBOSIS 2-3(HIGH-RISK SURGERY)TREATMENT OF VENOUS THROMBOSIS 2-3TREATMENT OF PULMONARY EMBOLISM 2-3PREVENTION OF SYSTEMIC EMBOLISM: 2-3 ACUTE MYOCARDIAL INFARCTION TISSUE HEART VALVES VALVULAR HEART DISEASE ATRIAL FIBRILLATION RECURRENT SYSTEMIC EMBOLISMMECHANICAL HEART VALVE 2.5-3.5 FROM: ORAL ANTICOAGULANTS. MECHANISM OF ACTION, CLINICALEFFECTIVENESS, AND OPTIMAL THERAPEUTIC RANGE. [id number]. Performed By: #### 5 6101, 06041 ####[facility] [facility].[address] Prothrombin time (PT) Coag time (PPP) 12.9 s Normal 12.3-14.8 [facility] [place] Comment on above: Result Comment: ALL RESULTS MUST BE INTERPRETED WITH RESPECT TO BLOOD DRAWING ARTIFACTOR DILUTION ERROR OF ANTICOAGULANT AT THE TIME OF SAMPLING. Performed By: #### 5 6101, 86825 ####[facility] [facility] [place] [place] [address], [facility] TYPE AND SCREENon 08-25-2016 ABO INTERPRETATION O Normal The [facility] Comment on above: Performed By: #### 6 2586 ####[facility] [facility] [place] [place] [address], [facility] ANTIBODY SCREEN Negative Normal The [facility] Comment on above: Performed By: #### 6 4526 ####[facility] [facility] [place] [place] [address], [facility] RH INTERPRETATION Positive Normal The [facility] Comment on above: Performed By: #### 6 2586 ####[facility] [facility] [place] [address], [facility] URINALYSISon 08-25-2016 Bilirubin (total) Negative Normal NEGATIVE The [facility] Comment on above: Performed By: #### 1 0008 ####[facility] [facility] [place] [place] [address], [facility] BLOOD MODERATE Abnormal NEGATIVE The [facility] Comment on above: Performed By: #### 1 0008 ####[facility] [facility] [place] [place] [address], [facility] EPIS MOD Abnormal FEW The [facility] Comment on above: Performed By: #### 1 0008 ####[facility] [facility] [place] [place] [address], [facility] Erythrocytes (RBC) 3-5 Abnormal 0-0 The [facility] Comment on above: Performed By: #### 1 0008 ####[facility] [facility] [place] [place] [address], [facility] Glucose mass conc Negative Normal NEGATIVE The [facility] Comment on above: Performed By: #### 1 0008 ####[facility] [facility] [place] [place] [address], [facility] KETONE Negative Normal NEGATIVE The [facility] Comment on above: Performed By: #### 1 0008 ####[facility] [facility] [place] [place] [address], [facility] LEUK ZEYNEP TRACE Abnormal NEGATIVE The [facility] Comment on above: Performed By: #### 1 0008 ####[facility] [facility] [place] [place] [address], [facility] pH of blood 7.0 [pH] Normal 5.0-8.0 The [facility] Comment on above: Performed By: #### 1 0008 ####[facility] [facility].[address] Protein Negative Normal NEGATIVE The [facility] Comment on above: Performed By: #### 1 0008 ####[facility] [facility].[address] SPEC GRAV 1.006 Low 1.015-1.020 The [facility] Comment on above: Performed By: #### 1 0008 ####[facility] [facility] [place] [place] [address], [facility] Urine, appearance CLEAR Normal CLEAR The [facility] Comment on above: Performed By: #### 1 0008 ####[facility].[address] Urine, bacteria in sediment MANY Abnormal NONE SEEN The [facility] Comment on above: Performed By: #### 1 0008 ####[facility].[address] Urine, color STRAW Abnormal YELLOW The [facility] Comment on above: Performed By: #### 1 0008 ####[facility] [place] [place] [address], [facility] Urine, nitrite presence Negative Normal NEGATIVE The [facility] Comment on above: Performed By: #### 1 0008 ####[facility] [place] [place] [address], [facility] WBC UA 11-20 Abnormal 0-0 The [facility] Comment on above: Performed By: #### 1 0008 ####[facility].[address] Vital Signs Date Time Vital Sign Value Performing Clinician Facility 02-03-2023 08:45-0500 Body height 160.02 cm Lili Scally Other [facility] Other 02-03-2023 08:45-0500 Body mass index (BMI) [Ratio] 52.61 kg/m2 Lili Scally Other [facility] Other 02-03-2023 08:45-0500 Body weight 134.72 kg Lili Scally Other [facility] Other 02-03-2023 08:45-0500 Diastolic blood pressure Lili Scally Other [facility] Other 02-03-2023 08:45-0500 Respiratory rate 20 /min Lili Scally Other [facility] Other 02-03-2023 08:45-0500 SaO2% (BldA) [Mass fraction] 94 % Lili Scally Other [facility] Other 02-03-2023 08:45-0500 Systolic blood pressure 144 mm[Hg] Lili Scally Other [facility] Other 11-26-2022 09:45-0400 Body height 160.02 cm Lili Scally Other [facility] Other 11-26-2022 09:45-0400 Body mass index (BMI) [Ratio] 51.37 kg/m2 Lili Scally Other [facility] Other 11-26-2022 09:45-0400 Body weight 131.54 kg Lili Scally Other [facility] Other 11-26-2022 09:45-0400 Diastolic blood pressure Lili Airamly Other [facility] Other 11-26-2022 09:45-0400 Respiratory rate 20 /min Lili Scally Other [facility] Other 11-26-2022 09:45-0400 SaO2% (BldA) [Mass fraction] 96 % Lili Airamly Other [facility] Other 11-26-2022 09:45-0400 Systolic blood pressure 124 mm[Hg] Lili Airamly Other [facility] Other 11-25-2022 09:20-0400 Body height 160.02 cm Stoney Turner Other [facility] Other 11-25-2022 09:20-0400 Body mass index (BMI) [Ratio] 52.07 kg/m2 Stoney Turner Other [facility] Other 11-25-2022 09:20-0400 Body weight 133.36 kg Stoney Turner Other [facility] Other 10-30-2022 11:18-0400 Diastolic blood pressure 81 mm[Hg] DO Judith Amanda Work Phone: [facility] 10-30-2022 11:18-0400 Heart rate 94 /min DO Judith Amanda Work Phone: [facility] 10-30-2022 11:18-0400 Respiratory rate 18 /min DO Judith Amanda Work Phone: [facility] 10-30-2022 11:18-0400 SaO2% (BldA) [Mass fraction] 96 % DO Judith Amanda Work Phone: [facility] 10-30-2022 11:18-0400 Systolic blood pressure 159 mm[Hg] DO Judith Amanda Work Phone: [facility] 10-30-2022 09:52-0400 Body height 160.02 cm DO Judith Amanda Work Phone: [facility] 10-30-2022 09:52-0400 Body weight 126.55 kg DO Judith Amanda Work Phone: [facility] 10-09-2022 10:40-0400 Body height 160.02 cm MartineCaptio Other [facility] Other 10-09-2022 10:40-0400 Body mass index (BMI) [Ratio] 52.07 kg/m2 [employer] Other [facility] Other 10-09-2022 10:40-0400 Body weight 133.36 kg [employer]ineTokopedia Other [facility] Other 10-09-2022 10:40-0400 Diastolic blood pressure 88 mm[Hg] [employer]Tok[employer] Other [facility] Other 10-09-2022 10:40-0400 Systolic blood pressure 154 mm[Hg] [employer] Other [facility] Other 10-03-2022 09:15-0400 Body height 160.02 cm Lili Scally Other [facility] Other 10-03-2022 09:15-0400 Body mass index (BMI) [Ratio] 52.09 kg/m2 Lili Scally Other [facility] Other 10-03-2022 09:15-0400 Body weight 133.4 kg Lili Scally Other [facility] Other 10-03-2022 09:15-0400 Diastolic blood pressure 88 mm[Hg] Lili Scally Other [facility] Other 10-03-2022 09:15-0400 Respiratory rate 20 /min Lili Scally Other [facility] Other 10-03-2022 09:15-0400 SaO2% (BldA) [Mass fraction] 65 % Lili Scally Other [facility] Other 10-03-2022 09:15-0400 Systolic blood pressure 143 mm[Hg] Lili Scally Other [facility] Other 09-19-2022 13:49-0400 Diastolic blood pressure 109 mm[Hg] DO Kalie Rumschlag Work Phone: [facility] 09-19-2022 13:49-0400 Heart rate 94 /min DO Kalie Rumschlag Work Phone: [facility] 09-19-2022 13:49-0400 Respiratory rate 20 /min DO Kalie Rumschlag Work Phone: [facility] 09-19-2022 13:49-0400 SaO2% (BldA) [Mass fraction] 96 % DO Kalie Rumschlag Work Phone: [facility] 09-19-2022 13:49-0400 Systolic blood pressure 209 mm[Hg] DO Kalie Rumschlag Work Phone: [facility] 09-19-2022 13:42-0400 Body height 162.56 cm DO Kalie Rumschlag Work Phone: [facility] 09-19-2022 13:42-0400 Body weight 124.73 kg DO Kalie Nektar [employer] Work Phone: [facility] 08-12-2022 09:40-0400 Body height 160.02 cm [employer] Other [facility] Other 08-12-2022 09:40-0400 Body mass index (BMI) [Ratio] 50.62 kg/m2 [employer] Other [facility] Other 08-12-2022 09:40-0400 Body weight 129.64 kg [employer] Other [facility] Other 08-12-2022 09:40-0400 Diastolic blood pressure 86 mm[Hg] [employer] Other [facility] Other 08-12-2022 09:40-0400 Systolic blood pressure 150 mm[Hg] [employer] Other [facility] Other 08-01-2022 09:15-0400 Body height 160.02 cm Lili Scally Other [facility] Other 08-01-2022 09:15-0400 Body mass index (BMI) [Ratio] 50.62 kg/m2 Lili Scally Other [facility] Other 08-01-2022 09:15-0400 Body weight 129.64 kg Lili Scally Other [facility] Other 08-01-2022 09:15-0400 Diastolic blood pressure 84 mm[Hg] Lili Scally Other [facility] Other 08-01-2022 09:15-0400 Respiratory rate 18 /min Lili Scally Other [facility] Other 08-01-2022 09:15-0400 SaO2% (BldA) [Mass fraction] 95 % Lili Scally Other [facility] Other 08-01-2022 09:15-0400 Systolic blood pressure 130 mm[Hg] Lili Scally Other [facility] Other 06-06-2022 10:45-0400 Body height 160.02 cm Lili Scally Other [facility] Other 06-06-2022 10:45-0400 Body mass index (BMI) [Ratio] 50.43 kg/m2 Lili Scally Other [facility] Other 06-06-2022 10:45-0400 Body weight 129.14 kg Lili Scally Other [facility] Other 06-06-2022 10:45-0400 Diastolic blood pressure 76 mm[Hg] Lili Scally Other [facility] Other 06-06-2022 10:45-0400 Respiratory rate 18 /min Lili Scally Other [facility] Other 06-06-2022 10:45-0400 SaO2% (BldA) [Mass fraction] 96 % Lili Scally Other [facility] Other 06-06-2022 10:45-0400 Systolic blood pressure 131 mm[Hg] Lili Scally Other [facility] Other 03-06-2022 14:45-0500 Body height 160.02 cm Lili Scally Other [facility] Other 03-06-2022 14:45-0500 Body mass index (BMI) [Ratio] 46.81 kg/m2 Lili Scally Other [facility] Other 03-06-2022 14:45-0500 Body weight 119.89 kg Lili Scally Other [facility] Other 03-06-2022 14:45-0500 Diastolic blood pressure 72 mm[Hg] Lili Scally Other [facility] Other 03-06-2022 14:45-0500 Respiratory rate 18 /min Lili Scally Other [facility] Other 03-06-2022 14:45-0500 SaO2% (BldA) [Mass fraction] 96 % Lili Scally Other [facility] Other 03-06-2022 14:45-0500 Systolic blood pressure 112 mm[Hg] Lili Scally Other [facility] Other 10-28-2021 11:15-0400 Body height 160.02 cm Lili Scally Other [facility] Other 10-28-2021 11:15-0400 Body mass index (BMI) [Ratio] 45.49 kg/m2 Lili Scally Other [facility] Other 10-28-2021 11:15-0400 Body weight 116.48 kg Lili Scally Other [facility] Other 10-28-2021 11:15-0400 Diastolic blood pressure 83 mm[Hg] Lili Scally Other [facility] Other 10-28-2021 11:15-0400 Respiratory rate 18 /min Lili Scally Other [facility] Other 10-28-2021 11:15-0400 SaO2% (BldA) [Mass fraction] 97 % Lili Scally Other [facility] Other 10-28-2021 11:15-0400 Systolic blood pressure 133 mm[Hg] Lili Scally Other [facility] Other 07-04-2021 09:15-0400 Body height 160.02 cm Lili Scally Other [facility] Other 07-04-2021 09:15-0400 Body mass index (BMI) [Ratio] 45.79 kg/m2 Lili Scally Other [facility] Other 07-04-2021 09:15-0400 Body weight 117.26 kg Lili Scally Other [facility] Other 07-04-2021 09:15-0400 Diastolic blood pressure 83 mm[Hg] Lili Scally Other [facility] Other 07-04-2021 09:15-0400 Respiratory rate 18 /min Lili Scally Other [facility] Other 07-04-2021 09:15-0400 SaO2% (BldA) [Mass fraction] 96 % Lili Scally Other [facility] Other 07-04-2021 09:15-0400 Systolic blood pressure 125 mm[Hg] Lili Burgos Other [facility] Other 11-21-2020 10:30-0400 Body height 160.02 cm Clifford Tammy Gaona. Other [facility] Other 11-21-2020 10:30-0400 Body mass index (BMI) [Ratio] 46.97 kg/m2 Cliffordronnie Munoz Jr. Other [facility] Other 11-21-2020 10:30-0400 Body weight 120.29 kg Clifford Munoz Jr. Other [facility] Other 11-21-2020 10:30-0400 Diastolic blood pressure 76 mm[Hg] Clifford Munoz Jr. Other [facility] Other 11-21-2020 10:30-0400 Respiratory rate 18 /min Cliffordronnie Munoz Jr. Other [facility] Other 11-21-2020 10:30-0400 SaO2% (BldA) [Mass fraction] 97 % Clifford Munoz Jr. Other [facility] Other 11-21-2020 10:30-0400 Systolic blood pressure 123 mm[Hg] Clifford Munoz Jr. Other [facility] Other Encounters Encounter Date Encounter Type Care Provider Facility Start: 03-04-2023 End: 03-04-2023 ambulatory Lili Burgos Other [facility] Other Start: 03-04-2023 Telephone encounter Lili Bello [facility] Start: 02-10-2023 End: 02-10-2023 ambulatory JUDITH G AMANDA Not Available Start: 02-03-2023 (DM) Diabetes Lililillian [facility] Start: 02-03-2023 End: 02-03-2023 ambulatory Kalie Matthewsyednelly [facility] Other Start: 01-26-2023 End: 01-26-2023 ambulatory Lili Burgos Other [facility] Other Start: 01-26-2023 Telephone encounter Lili [facility] Start: 01-15-2023 End: 01-15-2023 ambulatory BLANE FREDERICK Not Available Start: 01-15-2023 End: 01-15-2023 ambulatory JUDITH G AMANDA Not Available Start: 01-02-2023 End: 01-02-2023 ambulatory Lili Burgos Other [facility] Other Start: 01-02-2023 Telephone encounter [facility]ili [facility] Start: 12-31-2022 End: 12-31-2022 ambulatory JUDITH G AMANDA Not Available Start: 11-26-2022 (DM) Diabetes Lili Aubrey [facility] Start: 11-26-2022 End: 11-26-2022 ambulatory Lili Burgos Other [facility] Other Start: 11-25-2022 End: 11-25-2022 ambulatory Stoney Turner Other [facility] Other Start: 11-25-2022 Office outpatient ne w 30 minutes Stoney Turner [facility] Start: 11-12-2022 End: 11-12-2022 ambulatory Lili Scally Other [place] [facility] Other Start: 11-12-2022 Telephone encounter Lili Burgos [facility] Start: 10-30-2022 End: 10-30-2022 ambulatory Martine Tobias Facility:[facility] Start: 10-30-2022 End: 10-30-2022 Admission to same day surgery center DO Judith Amanda Work Phone: [facility] [place] Work Phone: Start: 10-30-2022 End: 10-30-2022 ambulatory DO Judith G Amanda Work Phone: [facility] Work Phone: Start: 10-09-2022 End: 10-09-2022 ambulatory Martine Tobias Other [facility] Other Start: 10-09-2022 Office outpatient visit 25 minutes Martine Tobias [facility] Start: 10-07-2022 End: 10-07-2022 ambulatory Martine Tobias Facility:[facility] Start: 10-07-2022 End: 10-07-2022 ambulatory DO Judith G Amanda Work Phone: [facility] Work Phone: Start: 10-07-2022 End: 10-07-2022 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 procedure DO Judith Amanda Work Phone: [facility] Work Phone: Start: 10-03-2022 (DM) Diabetes Lili [facility] Start: 10-03-2022 End: 10-03-2022 ambulatory Lili Burgos Other [facility] Other Start: 10-03-2022 Registered Recurring DO Judith Amanda Work Phone: [facility] Work Phone: Start: 09-26-2022 End: 09-26-2022 ambulatory Lili Burgos Other [facility] Other Start: 09-26-2022 Telephone encounter [facility] Start: 09-19-2022 End: 09-19-2022 ambulatory Martine Tobias Facility:[facility] Start: 09-19-2022 End: 09-19-2022 ambulatory DO Kalie Rumschlag Work Phone: [facility] Work Phone: Start: 09-19-2022 End: 09-19-2022 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 procedure DO Kalie Rumschlag Work Phone: [facility] [place] Work Phone: Start: 08-18-2022 End: 08-18-2022 ambulatory Martine Tobias Facility:[facility] Start: 08-18-2022 End: 08-18-2022 ambulatory DO Kalie Rumschlag Work Phone: [facility] Work Phone: Start: 08-18-2022 End: 08-18-2022 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 procedure DO Kalie Rumschlag Work Phone: [facility] [place] Work Phone: Start: 08-12-2022 End: 08-12-2022 ambulatory Martine Tobias Other [facility] Other Start: 08-12-2022 Office outpatient ne w 45 minutes Martine Tobias [facility] Start: 08-12-2022 Telephone encounter Lili [facility] Start: 08-05-2022 End: 08-05-2022 ambulatory Lili Burgos Other [facility] Other Start: 08-05-2022 Telephone encounter Lili Scally [facility] Start: 08-01-2022 (DM) Diabetes Lili Aubrey [facility] Start: 08-01-2022 End: 08-01-2022 ambulatory Lili Scally Other [facility] Other Start: 08-01-2022 Registered Recurring DO Kalie Pazcurtisflavia Work Phone: [facility] Work Phone: Start: 07-22-2022 End: 07-22-2022 ambulatory Lili Alegrialy Other [facility] Other Start: 07-22-2022 Telephone encounter Lili [facility] Start: 07-09-2022 End: 07-09-2022 ambulatory Lili Burgos Other [facility] Other Start: 07-09-2022 Telephone encounter Lili [facility] Start: 07-01-2022 End: 07-02-2022 [facility] Facility: Start: 06-20-2022 End: 06-21-2022 [facility] Facility: Start: 06-16-2022 End: 06-16-2022 ambulatory Lili Burgos Other [facility] Other Start: 06-16-2022 Telephone encounter Lilihebert Bello [facility] Start: 06-06-2022 (DM) Diabetes Lili Aubrey [facility] Start: 06-06-2022 End: 06-06-2022 ambulatory Lili Scally Other [facility] Other Start: 06-03-2022 End: 06-03-2022 ambulatory NARENDRANLEN LAKLIBERTYMIPATHY . Facility:[facility] Start: 05-15-2022 End: 05-16-2022 [facility] Facility:[facility] Start: 05-13-2022 End: 05-13-2022 ambulatory Lili Scally Other [facility] Other Start: 05-13-2022 Telephone encounter Lili Scally [facility] Start: 04-14-2022 End: 04-14-2022 ambulatory Lili Scally Other [facility] Other Start: 04-14-2022 Telephone encounter Lili Scally [facility] Start: 04-03-2022 End: 04-03-2022 ambulatory Lili Scally Other [facility] Other Start: 04-03-2022 Telephone encounter Lili Scally [facility] Start: 03-24-2022 End: 03-24-2022 ambulatory Lili Scally Other [facility] Other Start: 03-24-2022 Telephone encounter Lili Scally [facility] Start: 03-21-2022 End: 03-21-2022 ambulatory Lili Scally Other [facility] Other Start: 03-21-2022 Telephone encounter Lili Scally [facility] Start: 03-06-2022 (DM) Diabetes Lili Scally [facility] Start: 03-06-2022 End: 03-07-2022 ambulatory [facility] Other Start: 02-13-2022 End: 02-14-2022 [facility] Facility:[facility] Start: 12-31-2021 End: 12-31-2021 ambulatory Lili Scally Other [facility] Other Start: 12-31-2021 Telephone encounter Lili Scally [facility] Start: 12-11-2021 [facility] Facility:[facility] Start: 11-20-2021 End: 11-20-2021 ambulatory Lili Scally Other [facility] Other Start: 11-20-2021 Telephone encounter Lili Scally [facility] Start: 11-06-2021 End: 11-07-2021 [facility] Facility: Start: 10-28-2021 (DM) Diabetes Lili Scally [facility] Start: 10-28-2021 End: 10-28-2021 ambulatory Lili Scally Other [facility] Other Start: 09-20-2021 End: 09-20-2021 ambulatory Lili Scally Other [facility] Other Start: 09-20-2021 Telephone encounter Lili Scally [facility] Start: 09-12-2021 End: 09-12-2021 ambulatory Lili Scally Other [facility] Other Start: 09-12-2021 Telephone encounter Lili Scally [facility] Start: 08-01-2021 End: 08-02-2021 [facility] Facility: Start: 07-22-2021 End: 07-22-2021 ambulatory Lili Scally Other [facility] Other Start: 07-22-2021 Telephone encounter Lili Scally [facility] Start: 07-08-2021 End: 07-08-2021 ambulatory Lili Scally Other [facility] Other Start: 07-08-2021 Telephone encounter Lili Scally [facility] Start: 07-04-2021 (DM) Diabetes Lili Scally [facility] Start: 07-04-2021 End: 07-04-2021 ambulatory Lili Burgos Other [facility] Other Start: 06-20-2021 End: 06-20-2021 ambulatory Clifford Munoz Other [facility] Other Start: 06-20-2021 Telephone encounter Clifford [facility] Start: 04-19-2021 End: 04-19-2021 ambulatory Clifford Garciadiff Other [facility] Other Start: 04-19-2021 Telephone encounter Clifford Tammy [facility] Start: 03-28-2021 End: 03-28-2021 ambulatory Cliffordronnie Garciadiff Other [facility] Other Start: 03-28-2021 Telephone encounter Clifford [facility] Start: 01-29-2021 End: 01-29-2021 ambulatory Clifford Munoz Jr. Other [facility] Other Start: 01-29-2021 Telephone encounter Clifford [facility] Start: 11-27-2020 Telephone encounter Clifford [facility] Start: 11-21-2020 (DM) Diabetes Clifford Munoz Jr. [facility] Start: 09-25-2016 End: 09-26-2016 Ambulatory QUE BLAKE Facility:[facility] Start: 09-20-2016 End: 09-20-2016 Emergency department patient visit LAUREN CARDENAS Facility:[facility] Start: 09-08-2016 End: 09-15-2016 Evaluation and management of inpatient QUE BLAKE Facility:[facility] Procedures Date Procedure Procedure Detail Performing Clinician Start: 10-30-2022 Lumbosacral myelography DO Judith Vides Phone: Start: 10-07-2022 Dual energy X-ray absorptiometry DO Judith Newman Work Phone: Start: 09-19-2022 MR lumbar spine wo con DO Kalie Kasper Work Phone: Start: 08-18-2022 X-ray of lumbar spin e, six views including bending views DO Kalie Kasper Work Phone: Start: 09-08-2016 REPLACE OF R KNEE JT WITH SYNTH SUB, CEMENT, OPEN APPROACH QUE BLAKE Plan of Treatment Date Care Activity Detail Author Start: 10-30-2022 [facility] Start: 10-30-2022 Computerized axial tomography of lumbar spine with contrast [facility] Patient Education [facility] Work Phone: [facility] Immunizations Immunization Date Immunization Notes Care Provider Fa cili 06-12-2020 COVID-19 Vaccine Mod samuel - Documentation Purposes Only Clifford Munoz Jr. Other [facility] 05-15-2020 COVID-19 Vaccine Mod samuel - Documentation Purposes Only Clifford Munoz Jr. Other [facility] Payers Date Payer Category Payer Medicare [id number] 2019 Self-pay [id number] 2017 Medicare [id number] 2.1 [id number] 1960 Unknown [id number] 2.16.84 0.1.764436.3.579.2.593 1960 Unknown [id number] 2.16.84 0.1.396128.3.579.2.593 1960 Unknown [id number] 2.16.84 0.1.055524.3.579.2.593 1960 Unknown [id number] 2.16.84 0.1.291683.3.579.2.593 1960 Unknown [id number] 2.16.84 0.1.725932.3.579.2.593 1960 Unknown [id number] 2.16.84 0.1.687499.3.579.2.593 1960 Unknown [id number] 2.16.84 0.1.277426.3.579.2.593 1960 Unknown [id number] 2.16.84 0.1.850858.3.579.2.593 1960 Unknown [id number] 2.16.84 0.1.128077.3.579.2.593 1960 Unknown [id number] 2.16.840 .1.478605.3.579.2.1259 1960 Unknown [id number] 2.16.840 .1.152233.3.579.2.1259 1960 Unknown [id number] 2.16.840 .1.193162.3.579.2.1259 1960 Unknown [id number] 2.16.840. 1.637563.3.579.2.1259 1959 Medicare [id number] 2.1 6.840.1.990732.19 1959 Private Health Insurance [id number] Medicare [id number] 2.16 .840.1.184234.19 Unknown [id number] 2.16.8 40.1.334824.3.579.2.531 Unknown [id number] 2.16.8 40.1.245602.3.579.2.531 Unknown [id number] 2.16.8 40.1.942509.3.579.2.531 Unknown [id number] 2.16.8 40.1.926146.3.579.2.531 Unknown [id number] 2.16.8 40.1.082168.3.579.2.531 Social History Date Type Detail Facility Unknown if ever smoked [facility] Other Sex Assigned At Sex Assigned At Bir th [facility] Other Start: 01-03-2021 Tobacco smoking status NHIS Ex-smoker (finding) [facility] Start: 1960 Sex Assigned At Female F [facility] Medical Equipment Procedure Code Equipment Code Equipment Origin al Text Equipment Identifier Dates Arthroplasty, knee, total, minimally invasive Orthopaedic cement, non-medicated [id number] FDA Start: 01-03-2021 Arthroplasty, knee, total, minimally invasive Uncoated knee femur prosthesis ()[id number] FDA Start: 01-03-2021 Arthroplasty, knee, total, minimally invasive Tibial insert ()[id number] FDA Start: 01-03-2021 Arthroplasty, knee, total, minimally invasive Polyethylene patella prosthesis ()[id number] FDA Start: 01-03-2021 Arthroplasty, knee, total, minimally invasive Uncoated knee tibia prosthesis, metallic ()[id number] FDA Start: 01-03-2021 Start: 01-29-2021 Clinical Notes [...] of insulin. Patient deferred due to her [id number] cost. 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 It appears that Dinane will be tier 3 as is Jardiance. We could consider stopping medication as blood glucose secondary benefit not based on history if cost prohibitive. Could also consider patient assistance with [employer] for Fred. We did have a conversation about [...] of insulin. Patient deferred due to her [id number] cost. We will retry in a couple [...] medication issues. 6. Prescriptions: None needed 10-03-2022.PAP Ozempic/Tresiba. 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 Patient deferred due to her [id number] cost. We will retry in a couple [...] diabetes medication issues. 6. Prescriptions: None needed 10-03-2022.ROSALIE Fierro/Elvie. 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 Shows posterior mechanical fusion at the L1-S1 with posterior decompression at the L1-L3. Patient had physical therapy at [facility] and continues to do the home physical therapy without improvement. Will order xray lumbar 6 view to rule out any spondylolisthesis. Will order MRI to rule out any cord compression. Will get release of information from pain management Dr. Cook and [facility] physical therapy for continuity of care.Will order Aqua therapy. OARRS reviewed. pharmacological management reviewed, will continue with current prescriptions as prescribed. Will add lidocaine patch and [id number] Thermo patch. Will follow-up in 8 weeks [...] rule out osteoporosis Jul, Other OARRS reveiwed [employer] Other 06-16-2023 Evaluation note* Encounter Date Diagnosis [...] of insulin. Patient deferred due to her hwi-ys-djnadl cost. We will retry in a couple [...] Instructions material was published to portal Jul, [facility] current use of insulin (ICD-10 - Z79.4) Jul, BMI 50.0-59.9, adult (ICD-10 - Z68.43) [employer] Other 04-21-2023 Evaluation note* Encounter Date Diagnosis [...] Instructions material was published to portal May, [facility] current use of insulin (ICD-10 - Z79.4) May, BMI 50.0-59.9, adult (ICD-10 - Z68.43) May, Other Expect improvement with escalation of Ozempic to 2.0 mg subcu daily. Weight up today without decrease in insulin needs, no increases satiety The patient was given a Dexcom G6 sample and loaned an Office owned Dexcom G6 Teletypesetter Monitor. The sensor was placed on the back of her right arm by this educator. The patient was shown how to unlock the health club manager and read her BG. 15 minutes were spent placing the sensor and educating the patient by Lit Dixon RN, [facility] . [employer] Other 03-30-2023 NoteCONSULTATION CONSULTATION DATE: 05/15/2022 TO: [...] of the iliohypogastric nerve under fluoroscopic guidance.[id number] Evaluation note* Encounter Date Diagnosis Assessment Notes [...] Instructions material was published to portal Feb, [facility] current use of insulin (ICD-10 - Z79.4) Feb, BMI 45.0-49.9, adult (ICD-10 - Z68.42) Expect improvement with escalation of Ozempic to 2.0 mg subcu daily. Weight up today without decrease in insulin needs, no increases satiety [employer] Other 12-29-2022 NoteCONSULTATION CONSULTATION DATE: 02/13/2022 HISTORY [...] is able to walk unassisted. Medications include [place] 5/325 t.i.d., baclofen 10 mg q.h. s., [...] b.i.d. A referral will be sent to [facility] Neurosurgery to Dr. Moses Goetz for evaluation and patient is in complete agreement with this. We will continue to maintain her medications at this time, which will include Lyrica, [place] and baclofen. We will see the patient in three months' time, unless otherwise indicated. Patient was asked to call the office with an update once she has seen Neurosurgery.[facility] 12-31-2021 Evaluation note* Encounter Date Diagnosis Assessment Notes Treatment Notes Treatment Clinical Notes Dec, Type 2 diabetes mellitus with hyperglycemia (ICD-10 - E11.65) [employer] Other 09-21-2022 NoteCONSULTATION CONSULTATION DATE: 11/06/2021 HISTORY [...] secondary to her pain. 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 Weight slightly improving. hopeful for continue reduction to increase insulin sensitivity and decrease insulin needs. [employer] Other 06-16-2022 NoteCONSULTATION CONSULTATION DATE: 08/01/2021 HISTORY [...] burn but manageable. Her current medications are [place] 5/325 t.i.d., baclofen 10 mg q.h.s. and [...] move forward with [place]. I did discuss vitamins with her as well as nutrition importance. Patient will be seen at the clinic in three months' time unless otherwise indicated. [facility] Signed and Approved by: ALICIA HERNANDEZ . 08/14/2021 16:24:00[facility]05-23-2022 Evaluation note* Encounter Date Diagnosis Assessment Notes Treatment Notes Treatment Clinical Notes June, Type 2 diabetes mellitus with hyperglycemia (ICD-10 - E11.65) [employer] Other 05-19-2022 Evaluation note* Encounter Date Diagnosis [...] Instructions material was published to portal June, [facility] current use of insulin (ICD-10 - Z79.4) June, BMI 45.0-49.9, adult (ICD-10 - Z68.42) Expect improvement with escalation of Ozempic to 2.0 mg subcu daily. [employer] Other 10-06-2021 Evaluation note* Encounter Date Diagnosis [...] Prescriptions: None needed at this time. Nov, [facility] current use of insulin (ICD-10 - Z79.4) Nov, HTN (hypertension) (ICD-10 - I10) High Blood Pressure: Care Instructions material was published to [employer] Nov, Hyperlipidemia (ICD-10 - E78.5) Learning About High Cholesterol material was published to [employer] Nov, Dietary counseling and surveillance (ICD-10 - Z71.3) Learning About Healthy Weight material was published to [employer] Nov, BMI 45.0-49.9, adult (ICD-10 - Z68.42) Nov, Albuminuria (ICD-10 - R80.9) Nov, BMI 50.0-59.9, adult (ICD-10 - Z68.43) Nov, Other Learning About Vitamin D material was published to [employer] Other Evaluation noteNo InformationNort [employer] Other Evaluation noteNo assessment information available [facility] Work Phone: [employer] [facility] Narrative - Reported* Type Description Date Medical History RSD Medical History fibromyalgia Medical History hypertension Medical History type II diabetes Surgical History C section X3 Surgical History rotator cuff tear repair Surgical History back surgery x3 Surgical History knee surgery Surgical History hysteroscopy 05/30 Surgical History c5-c6 plates & screws Surgical History D&C 05/30 Hospitalization History see above [employer] Other [facility] general Narrative - Reported* Type Description Date Medical History RSD Medical History fibromyalgia Medical History hypertension Medical History type II diabetes Surgical History C section X3 Surgical History rotator cuff tear repair Surgical History back surgery x3 Surgical History knee surgery Surgical History hysteroscopy 05/30 Surgical History c5-c6 plates & screws Surgical History D&C 05/30 Surgical History knee replacement, Left 12/2020 Hospitalization History see above [employer] Other History general Narrative - Reported* Type [...] replacement, Left 12/2020 Hospitalization History see above [employer] Other History general Narrative - Reported* Type Description Date Medical History fibromyalgia Medical History hypertension Medical History type II diabetes Surgical History C section X3 Surgical History rotator cuff tear repair Surgical History back surgery x3 Surgical History knee surgery Surgical History hysteroscopy 4/14 Surgical History c5-c6 plates & screws Surgical History D&C /14 Surgical History knee replacement, Left 12/2020 Surgical History trigger finger release bilatera l 2021 Hospitalization History see above [employer] Other History general Narrative - Reported* Type [...] Hospitalization History see above Hospitalization History [facility]- Flu 02/2022 [employer] Other [facility] general Narrative - Reported* Type Description Date [...] c5-c6 plates & screws Surgical History D&C 14 Surgical History knee replacement, Left 12/2020 Surgical History trigger finger release bilatera l 2021 Hospitalization History see above Hospitalization History [facility]- Flu 02/2022 [employer] Other History general Narrative - ReportedNortCrescendo [employer] Other Summary Purpose Family History Relationship Condition Age at Onset Recorded Date/T jaycee Not Specified Hypertension Unknown Myocardial infarction Unknown father Pneumonia Unknown Unknown Advance Directives Advance Directive Response Recorded Date/ Time Advance Directives No January 17, 2020 3:49pm Chief Complaint and Reason for Visit Chief Complaint DM M54.16 Chief Complaint DM M54.16 m54.16 Chief Complaint M54.16 m54.16 DM z78.0 Chief Complaint M54.16 m54.16 DM z78.0 Z98.1 M48.062 Reason for Referral Reason EMG bilat lower extr emities Diagnosis 1 BMI 50.0-59.9, adult (Z68.43) Referral Organization [facility] Referring Provider First Name Martine Referring Provider Last Name Louise Referring Provider Specialty Nurse Pract itioner Referred Organization [facility] [address], [place],[address] Referred Provider Specialty Neurology Referral Priority Routine Reason evaluate and treat - tremors Diagnosis 1 BMI 50.0-59.9, adult (Z68.43) Referral Organization [facility] Referring Provider First Name Martine Referring Provider Last Name Tobias Referring Provider Specialty Nurse Pract itioner Referred Organization [facility] Referred Address [address], [place],[address] Referred Provider Specialty Neurology Referral Priority Routine Reason Evaluate and treat - osteoporosis Diagnosis 1 BMI 50.0-59.9, adult (Z68.43) Referral Organization [facility] Referring Provider First Name Martine Referring Provider Last Name Tobias Referring Provider Specialty Nurse Pract itioner Referred Organization [facility] Referred Provider Jennifer Siu Referred Address [address] [place], [place],[address] Referred Provider Specialty Nurse Pracphilipp tioneyasmine Referral Priority Routine Additional Source Comments INFORMATION SOURCE (unrecogn ized section and content) DATE CREATED AUTHOR 08/12/2017 [facility] DATE CREATED AUTHOR AUTHOR'S ORGANIZ ATION 07/02/2022 [facility] DATE CREATED AUTHOR AUTHOR'S ORGANIZ ATION 02/04/2023 [facility] DATE CREATED AUTHOR AUTHOR'S ORGANIZ ATION 02/12/2023 [facility] dical Specialists EPIC REASON FOR VISIT (unrecogniz ed section and content) DM 3 month follow upNo [facility] not [facility] services 03/28/21Cancelled. Requested we do not call to r/sDLC pen needlesDC VoicemailDC Basaglar refillDS Basaglar refillDS Jardiance RefillDM follow up, Type 2 IDDM, Accu Chek Guide MeterDS OzempicDS Basaglar alternativeDS Ozempic costDM, DM follow up, Type 2 IDDM, Accu Chek Guide Meter, [facility] Visit CodesDS Ozempic Sunitha PAP questionDS RefillDM rescheduled appt, DM, DM follow up, Type 2 IDDM, Accu Chek Guide Meter, [facility] Visit Codes, [facility] Visit CodesDS please callDS PAP/OzempicDS PAP OzempicDS [...] patient cancelledType 2 IDDM, Accu Chek Guide MeterDS sample Care Teams (unrecognized sec tion and content) Team Status: Active Member Role Status Dates Judith Newman , DO Primary Care Provider Active Team Status: Inactive Member Role Status Dates [facility] Attending Provider Active Judith Newman , Primary Care Provider Active Team Status: Active Member Role Status Dates Kalie Kasper , Primary Care Provider, Attending Provider Active Team Status: Inactive Member Role Status Dates Judith Newman , Primary Care Provider Active [facility] Attending [...] BE BASED ON THE PRIMARY CLINICAL RECORDS. [facility] [employer] [facility]. provides no warranty or guarantee of the accuracy or completeness of information in this document.
[2023-03-24 08:21] VITALS: BP 149/91; PULSE 93; RESP 16; TEMP 36.5; O2SAT 95
[2023-03-24 08:28] LABS: Glucometer 143 mg/dL (74-106)
[2023-03-24 09:32] VITALS: BP 215/99; PULSE 87; RESP 18; O2SAT 93
[2023-03-24 09:33] VITALS: BP 210/101; PULSE 89; RESP 18; O2SAT 96
[2023-03-24] MEDS: BUPIVACAINE HCL 0.25% PF 25 MG/10 ML VIAL INJ (09:35)
--- NOTE | 2023-03-24 09:44 | W.PM.PROCNOT ---
Date of procedure: 03/24/23 Pre-op diagnosis: superior gluteal neuritis Post-op diagnosis: same as pre-op Procedure: Bilateral Superior gluteal nerve block, diagnostic Performed under fluoroscopic guidance Immediate complications none Anesthesia: none Solution used for injection: In each syringe, 2 milliliters 0.25% Marcaine 2.5 mL is used for injection for each side Time out process compliant After informed consent obtained patient was brought to the procedure room placed in the prone position skin overlying the area was prepped and draped in a sterile fashion using betadine. 25 gauge spinal needle Insert over each of the target areas identified in fluoroscopy corresponding needles were advanced Under fluoroscopic guidance until the target/targets encountered, no indication of intravascular or Intraneuronal needle tip placement. Solution injected.needles removed post procedurally. patient transferred to recovery room in stable condition to be discharged home after meeting criteria Anesthesia: Local Surgeon: Tierney Terry Condition: stable
== END 2023-03-24 09:41 | disposition home or self-care (01) ==
LOC: SURGOUT 07:54
PROVIDERS: Visit Provider Anesthesiology Pain Medicine
DX: G57.83 Other specified mononeuropathies of bilateral lower limbs (principal); Z79.84 Long term (current) use of oral hypoglycemic drugs
CPT/HCPCS: 36415; 64450; 82948; J0665

== ENCOUNTER 2023-04-02 09:03 | Outpatient (OUT) | payer MEDICARE, SELFPAY ==
--- OUTSIDE RECORDS SUMMARY | 2023-04-02 09:16 | XMS_ITS | CCD ---
Author Name Unknown Address [address] [place] [address] Organization [facility] Care Team Providers Care Burial Agent Name Role Phone QUE BLAKE Unavailable Unavailable QUE BLAKE Unavailable Unavailable SELF, REFERRED Unavailable Unavailable OLIVE, ROSALES Unavailable Unavailable [place] Unavailable Unavailable QUE BLAKE Unavailable Unavailable WIEPKING, LAUREN Unavailable Unavailable SELF, REFERRED Unavailable Unavailable RICKY, JULIEN Unavailable Unavailable OLIVE, ROSALES Unavailable Unavailable QUE BLAKE Unavailable Unavailable QUE BLAKE Unavailable Unavailable QUE BLAKE Unavailable Unavailable OLIVE, ROSALES Unavailable Unavailable Clifford Munoz Jr. Unavailable Clifford Munoz Unavailable Lili Burgos Unavailable [facility] Unava ilable OLIVIER ., DR ADAM Liu Admitting Unavailable AGUAYO ., DR ADAM Liu Attending Unavailable HERNANDEZ ., ALICIA Consulting Unavailable LAKSHMIPATHY ., NARENDRANATH Consulting Daphne vailable [facility] Unava ilable LAKSHMIPATHY ., NARENDRANATH Admitting Daphne vailable LAKSHMIPATHY ., NARENDRANATH Attending Daphne vailable [facility] Primary Care Unava ilable DR BLANE THOMAS Consulting Unavailable HERNANDEZ .ALICIA Admitting Unavailable HERNANDEZ ., ALICIA Attending Unavailable HERNANDEZ ., ALICIA Consulting Unavailable [facility] Unava ilable HALKER ., JASON Attending Unavailable HALKER ., JASON Consulting Unavailable LAKSHMIPATHY ., NARENDRANATH Admitting Daphne vailable [facility] Care Unava ilable HALKER ., JASON Admitting Unavailable HALKER ., JASON Attending Unavailable LAKSHMIPATHY ., NARENDRANATH Consulting Daphne vailable [facility] Unava ilable AGUAYO ., DR ADAM Liu Admitting Unavailable AGUAYO ., DR ADAM Liu Attending Unavailable HERNANDEZ ., ALICIA Consulting Unavailable [facility] Unava ilable HERNANDEZ ., ALICIA Consulting Unavailable AGUAYO ., DR ADAM Liu Attending Unavailable AGUAYO ., DR ADAM Liu Admitting Unavailable [facility] Unava ilable AGUAYO ., DR ADAM Liu Admitting Unavailable AGUAYO ., DR ADAM Liu Attending Unavailable HERNANDEZ ., ALICIA Consulting Unavailable [facility] Unava ilable LAKSHMIPATHY ., NARENDRANATH Admitting Daphne vailable LAKSHMIPATHY ., NARENDRANATH Attending Daphne vailable LAKSHMIPATHY ., NARENDRANATH Consulting Daphne vailable Martine Tobias Unavailable Majo, Kalie Primary Care Provider Majo, DO Jade Attending Provider [phone] DO Judith Newman Primary Care Provider [facility] Tobias Attending Provider Majo, Kalie Primary Care Provider Majo, Kalie Attending Provider [phone] Stoney Turner Unavailable Martine Tobias Admitting Unavailable Martine Tobias Attending Unavailable Judith Newman Primary Care Unavailable Martine Tobias Admitting Unavailable Martine Tobias Attending Unavailable Amanda Judith G Primary Care Unavailable Rumschlag, Kalie Admitting Unavailable Rumschlag, Kalie Primary Care Unavailable Rumschlag, Kalie Attending Unavailable Martine Tobias Attending Unavailable Martine Tobias Admitting Unavailable Amanda, Judith G Primary Care Unavailable Martine Tobias Admitting Unavailable Martine Tobias Attending Unavailable Amanda, Judith G Primary Care Unavailable AMANDA, JUDITH G Attending Unavailable AMANDA, JUDITH G Attending Unavailable AMANDA JUDITH G Attending Unavailable BLANE FREDERICK Attending Unavailable AKANKSHA NICKERSON Attending Unavailable AMANDA, JUDITH G Referring Unavailable AMANDA, JUDITH G Primary Care Unavailable Medications Current Medications Medication Drug Class(es) [...] 08-01-2022 Start: 08-01-2022 take 1 capsule by [facility] every week Start: 08-01-2022 take 1 capsule by [facility] every week Cholecalciferol 1.25 MG (28948 UT) 1 capsule Orally weekly for 56 days Then OtC 4000 u daily therafter Jul, Active take 2 tablets by [facility] every twenty-four hours Vitamin D3 50 MCG (2000 UT) 2 tablets Orally Once a day Not-Taking/PRN take 1 capsule by [facility] every week Cholecalciferol 100 MCG (4000 UT) 1 capsule Orally weekly for 56 days Then OtC 4000 u daily therafter Active take 1 capsule by [facility] every week Cholecalciferol 50 MCG (2000 UT) 1 capsule Orally weekly for 56 days Then OtC 4000 u daily therafter Active take 1 capsule by [facility] every week Cholecalciferol 1.25 MG (41403 UT) 1 capsule Orally weekly for 56 [...] hours Start: 12-17-2020 take 1 tablet by [facility] once daily Empagliflozin (Jardiance) 10 mg [...] tablet by mickey th every six hours [place] Active take 1 tablet by mickey th twice daily as needed [place] 5-325 MG 1 tablet as needed Orally [...] essential hypertension] Onset: 09-08-2016 Resolved: 10-28-2021 Chronic Mood disorders (1 source) Major depressive disorder, recurrent severe without psychotic features; 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: [Major depressive disorder, recurrent severe without psychotic features] Onset: 11-13-2016 Chronic Nutritional deficiencies (20 sources) Vitamin D [...] sources) Long-term current use of insulin; 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] Episodic Other aftercare (10 sources) care home (current) use of insulin; 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: [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 Z79.4] Onset: 11-21-2020 [...] 09-08-2016 Resolved: 11-21-2020 Chronic Unclassified (1 source) 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; 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: [CARE HOME (CURRENT) USE OF ORAL HYPOGLYCEMIC DRUGS] Onset: [...] 02-03-2023 HbA1c (Bld) [Mass fraction] 9.7 % [employer] Other Glucose - FINGER STICKon Glucose [Mass/Vol] 178 mg/dL [employer] Other HbA1c (Bld) [Mass fraction]o n 02-03-2023 A1C HEMOGLOBIN [facility] [employer] Other Glucose - FINGER STICKon Glucose [Mass/Vol] 180 mg/dL [employer] Other CT lumbar spine w conon 10-17 CT lumbar spine w con [facility] [place] [address] [place] [address] CT Scan Report Signed Patient: Lesli Clay MR#: [id number] : 1960 Acct:[id number] Age/Sex: 62 / F ADM Date: 10/30/22 Loc: XD Room: Type: [facility] Attending Dr: Martine SANZ Copies to: [facility] [...] Mindy Tomas M.D.10/30/2022 4:11 PM Dictation Location: [place] [address] Transcribed By: [facility] 10/30/22 1611 Dictated By: Mindy Tomas II, MD 10/30/22 1602 Signed By: 10/30/22 1611 [facility] IR myelogram spine lumbosacr aby 10-30-2022 IR myelogram spine lumbosacral [facility] [place] [address] Interventional Radiology Rpt Signed Patient: Lesli Clay MR#: [id number] : 1960 Acct:[id number] Age/Sex: 62 / F ADM Date: 10/30/22 Loc: XD Room: Type: [facility] Attending Dr: Martine SANZ Copies to: U[facility] [...] Mindy Tomas M.D.10/30/2022 3:59 PM Dictation Location: [place] [address] Transcribed By: MICHELINE 10/30/22 1554 Dictated By: Mindy Tomas II, MD 10/30/22 1554 Signed By: 10/30/22 1555 Normal [facility] A1C HEMOGLOBINon 10-03-2022 HbA1c (Bld) [Mass fraction] 8.3 % [employer] Other Glucose - FINGER STICKon Glucose [Mass/Vol] 211 mg/dL [employer] Other HbA1c (Bld) [Mass fraction]o n 10-03-2022 A1C HEMOGLOBIN [employer] Other Creatinine (Bld) [Mass/Vol]O rdered By: Martine Tobias on 09-19-2022 Creatinine [Mass/Vol] 0.7 mg/dL 0.6-1.3 [facility] Comment on above: ER/ESD physician is notified/shown all ISTAT results.Critical values may be confirmed by laboratory testing ifdeemed necessary by ER attending doctor. MR lumbar spine wo conon MR lumbar spine wo con [facility] Main [place] [address] [place] [address] MRI Report Signed Patient: Lesli Clay MR#: [id number] : 1960 Acct:[id number] Age/Sex: 62 / F ADM Date: 09/19/22 Loc: MR Room: [facility] Attending Dr: Martine SANZ Copies to: [facility] [...] Mindy Tomas M.D.09/19/2022 4:07 PM Dictation Location: [place] [address] Transcribed By: [facility] 09/19/22 1607 Dictated By: Mindy Tomas II, MD 09/19/22 1600 Signed By: 09/19/22 1607 [facility] XR lumbar spine 6V w bending on 08-18-2022 XR lumbar spine 6V w bending [facility] Main [place] [address] [place] [address] XRay Report Signed Patient: Lesli Clay MR#: [id number] : 1960 Acct:[id number] Age/Sex: 62 / F ADM Date: 08/18/22 Loc: XD Room: Type: [facility] Attending Dr: Martine SANZ Copies to: [facility] [...] PROCESS. Impression dictated by: Noman Dodson Jr., D.O.08/18/2022 12:31 PM Dictation Location: [place] [address] Transcribed By: [facility] 08/18/22 1231 Dictated By: Noman Dodson Jr, DO 08/18/22 1230 Signed By: 08/18/22 1231 [facility] A1C HEMOGLOBINon 06-06-2022 HbA1c (Bld) [Mass fraction] 8.0 % [employer] Other Glucose - FINGER STICKon Glucose [Mass/Vol] 156 mg/dL [employer] Other HbA1c (Bld) [Mass fraction]o n 06-06-2022 A1C HEMOGLOBIN [facility] [employer] Other POINT OF CARE GLUCOSEon 05-17 Glucose [Mass/Vol] 185 mg/dL Critically high 74-106 [facility] Comment on above: Performed By: #### P OCGLUC #### [facility] [address] [place] [address] Dr. Keegan Neal A1C HEMOGLOBINon 03-06-2022 HbA1c (Bld) [Mass fraction] 7.8 % [place] [employer] Other CREATININEon 03-06-2022 Creatinine [Mass/Vol] 0.82 mg/dL Normal 0.55-1.02 [facility] Comment on above: Performed By: #### C EJ #### [facility] [address] [place] [address] [address] Keegan Neal EGFR-AF CITIZEN [place] >60 Normal >=[address] [facility] Comment on above: Performed By: #### C EJ #### [facility] [address] [place] [address] [address] Keegan Neal EGFR-NON AF CITIZEN OF [place] >60 Normal >=60 [facility] Comment on above: Performed By: #### C EJ #### [facility] [address] [place] [address] LSPINE WO W [...] by: BLANE THOMAS Date: 2022-03-06 11:22 Normal [facility] Glucose - FINGER STICKon Glucose [Mass/Vol] 200 mg/dL [employer] Other HbA1c (Bld) [Mass fraction]o n 03-06-2022 A1C HEMOGLOBIN [employer] Other A1C HEMOGLOBINon 10-28-2021 HbA1c (Bld) [Mass fraction] 7.0 % [employer] Other Glucose - FINGER STICKon Glucose [Mass/Vol] 110 mg/dL [employer] Other HbA1c (Bld) [Mass fraction]o n 10-28-2021 A1C HEMOGLOBIN [employer] Other A1C HEMOGLOBINon 07-04-2021 HbA1c (Bld) [Mass fraction] 6.6 % [employer] Other Glucose - FINGER STICKon Glucose [Mass/Vol] 110 mg/dL [employer] Other HbA1c (Bld) [Mass fraction]o n 07-04-2021 A1C HEMOGLOBIN [employer] Other A1C HEMOGLOBINon 11-21-2020 HbA1c (Bld) [Mass fraction] 6.0 % [employer] Other Glucose - FINGER STICKon Glucose [Mass/Vol] 98 mg/dL [employer] Other HbA1c (Bld) [Mass fraction]o n 11-21-2020 A1C HEMOGLOBIN [employer] Other Discharge Summaryon 09-26-19 Discharge Summary MR[id number] Admitted: 09/08/2016 Discharged: [...] 09/24/2016/02:52 P/Que Cano M.D.Date Trans: 09/25/2016 08:08 A/mmoDN_JN:[id number] cc: Rosales Taylor M.D. [address] [facility] [address] [facility] KNEE RIGHT 3 [facility] 7 KNEE RIGHT 3 [facility] [place] [address] P atient Name: LESLI CLAY : 1960ex: FAge: Race: WhiteMRN: [id number]. Location: 84Patient Status: Date: 09/25/2016 8:15:00 AMCompleted Date: 09/25/2016 08:22 AMRequesting Provider: QUE BLAKE Attending Provider: Report Copy To: Signs & Symptoms: Z96.651 Presence of right artificial knee joint [id number]: AthenaComments: , , , Ordering Provider - QUE BLAKE MD , Exam: KNEE RIGHT 3 VWSAccession #: [id number] ======KNEE RIGHT 3 VWS 09/25/2016 8:22 AM [...] changes. Electronically signed by:Mindy Tomas. Transcribed by: [email or web address], User Resident: Electronically Signed by: MINDY TOMAS @ 09/25/2016 04:44 PM Normal [facility] Comment on above: Order Comment: , , = ========= , Ordering Provider - QUE BLAKE MD , Consultationon 09-21-2016 Consultation MR#: [id number]: [facility] Date of [...] September 23, 2016, with Dr. Blake. In [facility], she was placed in a hinged knee brace to prevent flexion of theknee. She was given renewal of Keflex. We prescribed [place] for pain controland we applied an Armando wrap for edema control.Reviewed By:Desmond Mena MD 09/22/2016 08:26 AElectronically Signed by:Martin Fonseca MD 09/25/2016 03:22 P ___Martin Fonseca MD I was not present but assume all responsibility for the exam. NOTBILLABLEDate Dict: 09/21/2016/10:51 A/Desmond Mena MDDate Trans: 09/21/2016 11:52 A/Nigel_JN:[id number] cc: Rosales Taylor M.D. [address] [facility] [address] Normal [facility] [place] [facility] BASIC METABOLIC PANELon 080 Calcium 9.6 mg/dL Normal 8.6-10.3 [facility] Comment on above: Performed By: #### 0 0071 ####[facility] [place] [address], [facility] Chloride 99 mmol/L Normal 98-107 [facility] Comment on above: Performed By: #### 0 0071 ####[facility] [place] [address], [facility] CO2 29 mmol/L Normal 21-31 [facility] Comment on above: Performed By: #### 0 0071 ####[facility] [place] [address], [facility] Creatinine 0.91 mg/dL Normal 0.60-1.20 [facility] Comment on above: Performed By: #### 0 0071 ####[facility] [place] [address], [facility] eGFR (black) mL/min/{1.73_m2} Normal >60 [facility] Comment on above: Performed By: #### 0 0071 ####[facility] [facility] [place] [address], [facility] eGFR (non-black) mL/min/{1.73_m2} Normal >60 [facility] Comment on above: Performed By: #### 0 0071 ####[facility] [place] [address], [facility] Glucose mass conc 151 mg/dL High 70-[address] [facility] Comment on above: Performed By: #### 0 0071 ####[facility] [facility] [place] [address], [facility] Potassium molar conc 4.0 mmol/L Normal 3.5-5.1 [facility] Comment on above: Performed By: #### 0 0071 ####[facility] [place] [address], [facility] Sodium 137 mmol/L Normal 136-145 [facility] Comment on above: Performed By: #### 0 0071 ####[facility] [facility].[address] Urea nitrogen 13 mg/dL Normal 7-25 [facility] Comment on above: Performed By: #### 0 0071 ####[facility] [facility].[address] C REACTIVE PROTEINon 017 C reactive protein (CRP) 28.5 mg/L High 0.0-7.0 [facility] Comment on above: Performed By: #### 0 0071 ####[facility] [facility].[address] CBC W/DIFFon 09-20-2016 Basophils Auto #/vol (Bld) 0.5 % Normal 0.0-2.0 [facility] Comment on above: Performed By: #### 0 0071 ####[place] [address] [address] Eosinophils/100 leukocytes 2.1 % Normal 0.0-5.0 [facility] Comment on above: Performed By: #### 0 0071 ####[place] [address] [address] Erythrocyte distribution width Auto Ratio (RBC) 17.1 % High 11.5-16.9 [facility] Comment on above: Performed By: #### 0 0071 ####[facility] [facility].[address] Erythrocytes (RBC) 3.39 mill/mm3 Low 3.50-5.50 [facility] Comment on above: Performed By: #### 0 0071 ####[facility] [facility].[address] Hematocrit (HCT) 31.4 % Low 36.0-48.0 [facility] Comment on above: Performed By: #### 0 0071 ####[facility] Hemoglobin mass conc (Bld) 10.3 g/dL Low 12.0-15.0 [facility] Comment on above: Performed By: #### 0 0071 ####[address] Lymphocytes/100 leukocytes 19.8 % Low 20.0-40.0 [facility] Comment on above: Performed By: #### 0 0071 ####[address] MCH 30.3 pg Normal 24.0-32.0 [facility] Comment on above: Performed By: #### 0 0071 ####[address] MCHC mass conc (RBC) 32.7 g/dL Normal 32.0-36.0 [facility] Comment on above: Performed By: #### 0 0071 ####[address] MCV 92.6 fL Normal 80.0-100.0 [facility] Comment on above: Performed By: #### 0 0071 ####[place] [address] METHOD Normal [facility] Comment on above: Result Comment: Auto mated differential performedNormal RBC Morphology Performed By: #### 0 0071 ####[address] MONOS 5.8 % Normal 2-8 [facility] Comment on above: Performed By: #### 0 0071 ####[place] [id number], [facility] Neutrophils/100 leukocytes 71.8 % High 50-70 [facility] Comment on above: Performed By: #### 0 0071 ####[facility] [place] [address], [facility] PLAT CNT 400 Thou/mm3 Normal 100-400 [facility] Comment on above: Performed By: #### 0 0071 ####[facility] [place] [address], [facility] WBC (Leukocytes) 10.6 Thou/mm3 High 4.0-10.0 [facility] Comment on above: Performed By: #### 0 0071 ####[facility] [place] [address], [facility] SEDIMENTATION RATEon 017 SED RATE 107 mm/hr High 0-20 [facility] Comment on above: Performed By: #### 0 0071 ####[facility] [place] [address], [facility] POC GLUCOSE LABon 09-15-2016 Glucose mass conc 187 mg/dL High 70-100 [facility] Comment on above: Performed By: #### 0 0071 ####[facility] [place] [address], [facility] Glucose mass conc 153 mg/dL High 70-100 [facility] Comment on above: Performed By: #### 5 3235, 13048 ####[facility] [place] [address], [facility] POC GLUCOSE LABon 09-14-2016 Glucose mass conc 198 mg/dL High 70-100 [facility] Comment on above: Performed By: #### 5 6301, 94421 ####[facility] [place] [address], [place] Glucose mass conc 188 mg/dL High 70-100 [facility] Comment on above: Performed By: #### 5 6100, 77196 ####[facility] [place] [address], [place] Glucose mass conc 192 mg/dL High 70-100 [facility] Comment on above: Performed By: #### 5 6100, 82865 ####[facility] [place] [address], [place] Glucose mass conc 155 mg/dL High 70-100 [facility] Comment on above: Performed By: #### 5 6100, 52474 ####[facility] [place] [address], [place] POC GLUCOSE LABon 09-13-2016 Glucose mass conc 223 mg/dL High 70-100 [facility] Comment on above: Performed By: #### 5 6100, 39247 ####[facility] [facility] [place] [address], [place] Glucose mass conc 212 mg/dL High 70-100 [facility] Comment on above: Performed By: #### 5 6100, 69530 ####[facility] [place] [address], [place] Glucose mass conc 111 mg/dL High 70-100 [facility] Comment on above: Performed By: #### 5 6100, 64348 ####[facility] [place] [address], [place] Glucose mass conc 199 mg/dL High 70-100 [facility] Comment on above: Performed By: #### 5 610, 93606 ####[facility] [place] [address], [place] Glucose mass conc 149 mg/dL High 70-100 [facility] Comment on above: Performed By: #### 5 610, 39643 ####[facility] [place] [address], [place] POC GLUCOSE LABon 09-12-2016 Glucose mass conc 205 mg/dL High 70-100 [facility] Comment on above: Performed By: #### 5 610, 17922 ####[facility] [place] [address], [place] Glucose mass conc 132 mg/dL High 70-100 [facility] Comment on above: Performed By: #### 5 610, 01711 ####[facility] [place] [address], [place] Glucose mass conc 184 mg/dL High 70-100 [facility] Comment on above: Performed By: #### 5 610, 43340 ####[facility] [place] [address], [place] Glucose mass conc 158 mg/dL High 70-100 [facility] Comment on above: Performed By: #### 5 6100, 72811 ####[facility] [place] [address], [place] POC GLUCOSE LABon 09-11-2016 Glucose mass conc 194 mg/dL High 70-100 [facility] Comment on above: Performed By: #### 5 610, 88435 ####[facility] [place] [address], [place] Glucose mass conc 192 mg/dL High 70-100 [facility] Comment on above: Performed By: #### 5 610, 41917 ####[facility] [place] [address], [place] Glucose mass conc 221 mg/dL High 70-100 [facility] Comment on above: Performed By: #### 5 610, 32950 ####[facility] [place] [address], [place] Glucose mass conc 147 mg/dL High 70-100 [facility] Comment on above: Performed By: #### 5 6101, 75841 ####[facility] [place] [address], [facility] POC GLUCOSE LABon 09-10-2016 Glucose mass conc 224 mg/dL High 70-100 [facility] Comment on above: Performed By: #### 5 6101, 34490 ####[facility] [place] [address], [facility] Glucose mass conc 156 mg/dL High 70-100 [facility] Comment on above: Performed By: #### 1 0008 ####[facility] [place] [address], [facility] Glucose mass conc 240 mg/dL High 70-100 [facility] Comment on above: Performed By: #### 1 0008 ####[facility] [place] [address], [facility] Glucose mass conc 171 mg/dL High 70-100 [facility] Comment on above: Performed By: #### 1 0008 ####[facility] [place] [address], [facility] BASIC METABOLIC PANELon - Calcium 8.4 mg/dL Low 8.6-10.3 [facility] Comment on above: Order Comment: No: D o not add to previous draw Performed By: #### 1 0008 ####[facility] [place] [address], [facility] Chloride 99 mmol/L Normal 98-107 [facility] Comment on above: Order Comment: No: D o not add to previous draw Performed By: #### 1 0008 ####[facility] [place] [address], [facility] CO2 27 mmol/L Normal 21-31 [facility] Comment on above: Order Comment: No: D o not add to previous draw Performed By: #### 1 0008 ####[facility] [place] [address], [facility] Creatinine 1.11 mg/dL Normal 0.60-1.20 [facility] Comment on above: Order Comment: No: D o not add to previous draw Performed By: #### 1 0008 ####[facility] [facility] [place] [address], [facility] eGFR (black) mL/min/{1.73_m2} Normal >60 [facility] Comment on above: Order Comment: No: D o not add to previous draw Performed By: #### 1 0008 ####[facility] [facility].[address] eGFR (non-black) 51 ml/min/1.73sq m Abnormal >60 [facility] Comment on above: Order Comment: No: D o not add to previous draw Performed By: #### 1 0008 ####[facility]3000 [facility] [place] [address], [facility] Glucose mass conc 161 mg/dL High 70-[address] [facility] Comment on above: Order Comment: No: D o not add to previous draw Performed By: #### 1 0008 ####[facility]3000 [facility] [place] [address], [facility] Potassium molar conc 4.2 mmol/L Normal 3.5-5.1 [facility] Comment on above: Order Comment: No: D o not add to previous draw Performed By: #### 1 0008 ####[facility]3000 [facility] [place] [address], [facility] Sodium 134 mmol/L Low 136-145 [facility] Comment on above: Order Comment: No: D o not add to previous draw Performed By: #### 1 0008 ####[facility]3000 [facility].[address] Urea nitrogen 24 mg/dL Normal 7-25 The [facility] Comment on above: Order Comment: No: D o not add to previous draw Performed By: #### 1 0008 ####[facility]3000 [facility].[address] CBC W/DIFFon 09-09-2016 Basophils Auto #/vol (Bld) 0.2 % Normal 0.0-2.0 [facility] Comment on above: Order Comment: No: D o not add to previous draw Performed By: #### 1 0008 ####[place] [address] [address] Eosinophils/100 leukocytes 1.0 % Normal 0.0-5.0 [facility] Comment on above: Order Comment: No: D o not add to previous draw Performed By: #### 1 0008 ####[facility] Erythrocyte distribution width Auto Ratio (RBC) 16.9 % Normal 11.5-16.9 [facility] Comment on above: Order Comment: No: D o not add to previous draw Performed By: #### 1 0008 ####[place] [address] [facility].[address] Erythrocytes (RBC) 3.31 mill/mm3 Low 3.50-5.50 [facility] Comment on above: Order Comment: No: D o not add to previous draw Performed By: #### 1 0008 ####[facility]3000 [facility].[address] Hematocrit (HCT) 30.7 % Low 36.0-48.0 The [facility] Comment on above: Order Comment: No: D o not add to previous draw Performed By: #### 1 0008 ####[facility] [facility] Hemoglobin mass conc (Bld) 10.0 g/dL Low 12.0-15.0 [facility] Comment on above: Order Comment: No: D o not add to previous draw Performed By: #### 1 0008 ####[facility]3000 [facility] [place] [address], [facility] Lymphocytes/100 leukocytes 25.6 % Normal 20.0-40.0 [facility] Comment on above: Order Comment: No: D o not add to previous draw Performed By: #### 1 0008 ####[place] [address] [facility].[address] MCH 30.3 pg Normal 24.0-32.0 [facility] Comment on above: Order Comment: No: D o not add to previous draw Performed By: #### 1 0008 ####[facility]3000 [facility].[address] MCHC mass conc (RBC) 32.7 g/dL Normal 32.0-36.0 [facility] Comment on above: Order Comment: No: D o not add to previous draw Performed By: #### 1 0008 ####[facility] [place] [address].[address] MCV 92.7 fL Normal 80.0-100.0 [facility] Comment on above: Order Comment: No: D o not add to previous draw Performed By: #### 1 0008 ####[facility]3000 [facility] [place] [address], [facility] METHOD Normal [facility] Comment on above: Order Comment: No: D o not add to previous draw Result Comment: Auto mated differential performedNormal RBC Morphology Performed By: #### 1 0008 ####[facility]3000 [facility] [place] [place] [address], [facility] MONOS 6.9 % Normal 2-8 [facility] Comment on above: Order Comment: No: D o not add to previous draw Performed By: #### 1 0008 ####[facility] Neutrophils/100 leukocytes 66.3 % Normal 50-70 [facility] Comment on above: Order Comment: No: D o not add to previous draw Performed By: #### 1 0008 ####[facility] [place] [address], [facility] PLAT CNT 304 Thou/mm3 Normal 100-400 [facility] Comment on above: Order Comment: No: D o not add to previous draw Performed By: #### 1 0008 ####[facility]3000 [facility].[address] WBC (Leukocytes) 8.7 Thou/mm3 Normal 4.0-10.0 [facility] Comment on above: Order Comment: No: D o not add to previous draw Performed By: #### 1 0008 ####[facility]3000 [facility].[address] Operative Reporton 7 Operative Report MR#: [id number] [facility] Name: Lesli Clay Room #: [id number] Discharge Date: Birthdate: 1960 OPERATIVE REPORTDATE OF [...] 09/08/2016/08:19 P/Que Cano M.D.Date Trans: 09/09/2016 04:17 A/Nigel_JN:[id number] cc: Rosales Taylor M.D. [address] [facility] [address] Normal [facility] POC GLUCOSE LABon 09-09-2016 Glucose mass conc 229 mg/dL High 70-100 [facility] Comment on above: Performed By: #### 1 0008 ####[facility]3000 [facility] [place] [address], [facility] Glucose mass conc 159 mg/dL High 70-100 [facility] Comment on above: Performed By: #### 1 0008 ####[facility]3000 [facility] [place] [address], [facility] Glucose mass conc 182 mg/dL High 70-100 [facility] Comment on above: Performed By: #### 1 0008 ####[facility]3000 [facility] [place] [address], [place] Glucose mass conc 159 mg/dL High 70-100 [facility] Comment on above: Performed By: #### 1 0008 ####[facility]3000 [facility] [place] [address], [place] Glucose mass conc 172 mg/dL High 70-100 [facility] Comment on above: Performed By: #### 1 0008 ####[facility] [place] [address], [facility] POC GLUCOSE LABon 09-08-2016 Glucose mass conc 175 mg/dL High 70-100 [facility] Comment on above: Performed By: #### 8 5499 ####[facility] [place] [address].[place] [address], [facility] Glucose mass conc 165 mg/dL High 70-100 [facility] Comment on above: Performed By: #### 8 5499 ####[facility]3000 [facility] [place] [address], [facility] Glucose mass conc 173 mg/dL High 70-100 [facility] Comment on above: Performed By: #### 8 5499 ####[facility] [place] [address] PORTABLE KNEE RIGHT 2 VWSon 09-08-2016 PORTABLE KNEE RIGHT 2 VWS [facility] [place] [address] P atient Name: LESLI CLAY : 1960ex: FAge: Race: WhiteMRN: [id number]. Location: OUTPPatient Status: OVisit #: [id number] Date: 09/08/2016 2:05:00 PMCompleted Date: 09/08/2016 02:45 PMRequesting Provider: QUE CANO Attending Provider: QUE BLAKE Report Copy To: Signs & Symptoms: Pain ( specify Location)History: Patient history not availableComments: Hardware Evaluation, please do in PACUExam: PORTABLE KNEE RIGHT 2 VWSAccession #: [id number] ======PORTABLE KNEE RIGHT 2 VWS 09/08/2016 2:45 [...] arthroplasty Electronically signed by:Joan Cormier. Transcribed by: [email or web address], User Resident: Electronically Signed by: JOAN CORMIER @ 09/08/2016 02:48 PM Normal [facility] Comment on above: Order Comment: Hardw are Evaluation, please do in PACU APTTon 08-25-2016 aPTT 33.0 s Normal 25.0-35.0 [facility] Comment on above: Result Comment: ALL [...] THIS PURPOSE. Performed By: #### 5 6101, 83703 ####[facility]3000 [facility] [place] [address], [facility] BASIC METABOLIC PANELon 08-16 Calcium 9.9 mg/dL Normal 8.6-10.3 [facility] Comment on above: Performed By: #### 0 0071 ####[facility] [facility] [address], [facility] Chloride 96 mmol/L Low 98-107 [facility] Comment on above: Performed By: #### 0 0071 ####[facility] [place] [address], [facility] CO2 29 mmol/L Normal 21-31 [facility] Comment on above: Performed By: #### 0 0071 ####[facility] [place] [address], [facility] Creatinine 0.94 mg/dL Normal 0.60-1.20 [facility] Comment on above: Performed By: #### 0 0071 ####[facility] [place] [address], [facility] eGFR (black) mL/min/{1.73_m2} Normal >60 [facility] Comment on above: Performed By: #### 0 0071 ####[facility] [place] [address], [facility] eGFR (non-black) mL/min/{1.73_m2} Normal >60 [facility] Comment on above: Performed By: #### 0 0071 ####[facility] [facility] [address], [facility] Glucose mass conc 128 mg/dL High 70-[address] [facility] Comment on above: Performed By: #### 0 0071 ####[facility] [place] [address], [facility] Potassium molar conc 4.0 mmol/L Normal 3.5-5.1 [facility] Comment on above: Performed By: #### 0 0071 ####[facility] [place] [address], [facility] Sodium 135 mmol/L Low 136-145 [facility] Comment on above: Performed By: #### 0 0071 ####[facility] [place] [address], [facility] Urea nitrogen 15 mg/dL Normal 7-[address] [facility] Comment on above: Performed By: #### 0 0071 ####[facility] [place] [address], [facility] CBC W/DIFFon 08-25-2016 Basophils Auto #/vol (Bld) 0.2 % Normal 0.0-2.0 [facility] Comment on above: Performed By: #### 5 102 ####[facility] [place] [address], [facility] Eosinophils/100 leukocytes 1.6 % Normal 0.0-5.0 [facility] Comment on above: Performed By: #### 5 102 ####[facility] [facility] Erythrocyte distribution width Auto Ratio (RBC) 16.9 % Normal 11.5-16.9 [facility] Comment on above: Performed By: #### 102 ####[facility] [place] [address], [facility] Erythrocytes (RBC) 4.18 mill/mm3 Normal 3.50-5.50 [facility] Comment on above: Performed By: #### 5 102 ####[facility] Hematocrit (HCT) 38.2 % Normal 36.0-48.0 [facility] Comment on above: Performed By: #### 102 ####[facility] Hemoglobin mass conc (Bld) 12.5 g/dL Normal 12.0-15.0 [facility] Comment on above: Performed By: #### 102 ####[facility] [place] [address], [facility] Lymphocytes/100 leukocytes 21.4 % Normal 20.0-40.0 [facility] Comment on above: Performed By: #### 5 0103 ####[facility] [place] [address], [facility] MCH 29.9 pg Normal 24.0-32.0 [facility] Comment on above: Performed By: #### 5 0103 ####[facility] [place] [address], [facility] MCHC mass conc (RBC) 32.7 g/dL Normal 32.0-36.0 [facility] Comment on above: Performed By: #### 5 0103 ####[facility] MCV 91.4 fL Normal 80.0-100.0 [facility] Comment on above: Performed By: #### 5 0103 ####[facility]3000 [facility].[address] METHOD Normal [facility] Comment on above: Result Comment: Auto mated differential performedNormal RBC Morphology Performed By: #### 5 0103 ####[facility]3000 [facility].[address] MONOS 5.2 % Normal 2-8 [facility] Comment on above: Performed By: #### 5 0103 ####[facility] Neutrophils/100 leukocytes 71.6 % High 50-70 [facility] Comment on above: Performed By: #### 5 0103 ####[facility] [place] [address], [facility] PLAT CNT 351 Thou/mm3 Normal 100-400 [facility] Comment on above: Performed By: #### 5 0103 ####[facility] [place] [address], [facility] WBC (Leukocytes) 12.0 Thou/mm3 High 4.0-10.0 The [facility] Comment on above: Performed By: #### 5 0103 ####[facility]3000 [facility].[address] PROTHROMBIN TIMEon 7 INR Coag RelTime (PPP) 0.97 {INR} Normal 0.91-1.16 [facility] Comment on above: Result Comment: ACCC P RECOMMENDED INR FOR WARFARIN THERAPY CONDITION INRPROPHYLAXIS OF VENOUS THROMBOSIS 2-3(HIGH-RISK SURGERY)TREATMENT OF VENOUS THROMBOSIS 2-3TREATMENT OF PULMONARY EMBOLISM 2-3PREVENTION OF SYSTEMIC EMBOLISM: 2-3 ACUTE MYOCARDIAL INFARCTION TISSUE HEART VALVES VALVULAR HEART DISEASE ATRIAL FIBRILLATION RECURRENT SYSTEMIC EMBOLISMMECHANICAL HEART VALVE 2.5-3.5 FROM: ORAL ANTICOAGULANTS. MECHANISM OF ACTION, CLINICALEFFECTIVENESS, AND OPTIMAL THERAPEUTIC RANGE. [id number]. Performed By: #### 5 6101, [id number] ####[facility]3000 [facility].[address] Prothrombin time (PT) Coag time (PPP) 12.9 s Normal 12.3-14.8 [facility] Comment on above: Result Comment: ALL RESULTS MUST BE INTERPRETED WITH RESPECT TO BLOOD DRAWING ARTIFACTOR DILUTION ERROR OF ANTICOAGULANT AT THE TIME OF SAMPLING. Performed By: #### 5 6101, 43089 ####[facility] TYPE AND SCREENon 08-25-2016 ABO INTERPRETATION O Normal [facility] Comment on above: Performed By: #### 6 2586 ####[facility] [place] [address], [facility] ANTIBODY SCREEN Negative Normal The [facility] Comment on above: Performed By: #### 6 2586 ####[facility] [place] [address], [place] RH INTERPRETATION Positive Normal [facility] Comment on above: Performed By: #### 6 2586 ####[facility] [place] [address], [place] URINALYSISon 08-25-2016 Bilirubin (total) Negative Normal NEGATIVE [facility] Comment on above: Performed By: #### 1 0008 ####[facility] [facility] [place] [address], [place] BLOOD MODERATE Abnormal NEGATIVE [facility] Comment on above: Performed By: #### 1 0008 ####[facility] [facility] [place] [address], [place] EPIS MOD Abnormal FEW [facility] Comment on above: Performed By: #### 1 0008 ####[facility] [facility] [address], [place] Erythrocytes (RBC) 3-5 Abnormal 0-0 [facility] Comment on above: Performed By: #### 1 0008 ####[facility] [place] [address], [place] Glucose mass conc Negative Normal NEGATIVE [facility] Comment on above: Performed By: #### 1 0008 ####[facility] [place] [address], [place] KETONE Negative Normal NEGATIVE [facility] Comment on above: Performed By: #### 1 0008 ####[facility] [place] [address], [place] LEUK ZEYNEP TRACE Abnormal NEGATIVE [facility] Comment on above: Performed By: #### 1 0008 ####[facility]3000 [facility].[address] pH of blood 7.0 [pH] Normal 5.0-8.0 The [facility] Comment on above: Performed By: #### 1 0008 ####[facility] [facility].[address] Protein Negative Normal NEGATIVE [facility] Comment on above: Performed By: #### 1 0008 ####[facility]3000 [facility].[address] SPEC GRAV 1.006 Low 1.015-1.020 [facility] Comment on above: Performed By: #### 1 0008 ####[place] [address] [facility].[address] Urine, appearance CLEAR Normal CLEAR [facility] Comment on above: Performed By: #### 1 0008 ####[place] [address] [facility].[address] Urine, bacteria in sediment MANY Abnormal NONE SEEN [facility] Comment on above: Performed By: #### 1 0008 ####[facility] [facility] [place] [address], [facility] Urine, color STRAW Abnormal YELLOW [facility] Comment on above: Performed By: #### 1 0008 ####[place] [address] [facility] [place] [place] [address], [facility] Urine, nitrite presence Negative Normal NEGATIVE [facility] Comment on above: Performed By: #### 1 0008 ####[facility] [facility].[address] WBC UA 11-20 Abnormal 0-0 [facility] Comment on above: Performed By: #### 1 0008 ####[facility] Vital Signs Date Time Vital Sign Value Performing Clinician Facility 02-03-2023 08:45-0500 Body height 160.02 cm Lili Scally Other [facility] Other 02-03-2023 08:45-0500 Body mass index (BMI) [Ratio] 52.61 kg/m2 Lili Scally Other [facility] Other 02-03-2023 08:45-0500 Body weight 134.72 kg Lili Scally Other [facility] Other 02-03-2023 08:45-0500 Diastolic blood pressure Lili Scally Other [facility] Other 02-03-2023 08:45-0500 Respiratory rate 20 /min Lili Scally Other [facility] Other 02-03-2023 08:45-0500 SaO2% (BldA) [Mass fraction] 94 % Lili Scally Other [facility] Other 02-03-2023 08:45-0500 Systolic blood pressure 144 mm[Hg] Lili Scally Other [facility] Other 11-26-2022 09:45-0400 Body height 160.02 cm Lili Scally Other [facility] Other 11-26-2022 09:45-0400 Body mass index (BMI) [Ratio] 51.37 kg/m2 Lili Scally Other [facility] Other 11-26-2022 09:45-0400 Body weight 131.54 kg Lili Scally Other [facility] Other 11-26-2022 09:45-0400 Diastolic blood pressure Lili Scally Other [facility] Other 11-26-2022 09:45-0400 Respiratory rate 20 /min Lili Scally Other [facility] Other 11-26-2022 09:45-0400 SaO2% (BldA) [Mass fraction] 96 % Lili Scally Other [facility] Other 11-26-2022 09:45-0400 Systolic blood pressure 124 mm[Hg] Lili Scally Other [facility] Other 11-25-2022 09:20-0400 Body height 160.02 cm Stoney Turner Other [facility] Other 11-25-2022 09:20-0400 Body mass index (BMI) [Ratio] 52.07 kg/m2 Stoney Turner Other [facility] Other 11-25-2022 09:20-0400 Body weight 133.36 kg Stoney Turner Other [facility] Other 10-30-2022 11:18-0400 Diastolic blood pressure 81 mm[Hg] DO Judith Amanda Work Phone: [facility] 10-30-2022 11:18-0400 Heart rate 94 /min DO Judith Amanda Work Phone: [facility] 10-30-2022 11:18-0400 Respiratory rate 18 /min DO Judith Amanda Work Phone: [facility] 10-30-2022 11:18-0400 SaO2% (BldA) [Mass fraction] 96 % DO Judith Amanda Work Phone: [facility] 10-30-2022 11:18-0400 Systolic blood pressure 159 mm[Hg] DO Judith Amanda Work Phone: [facility] 10-30-2022 09:52-0400 Body height 160.02 cm DO Judith Amanda Work Phone: [facility] 10-30-2022 09:52-0400 Body weight 126.55 kg DO Judith Amanda Work Phone: [facility] 10-09-2022 10:40-0400 Body height 160.02 cm Martine Tobias Other [facility] Other 10-09-2022 10:40-0400 Body mass index (BMI) [Ratio] 52.07 kg/m2 Martine Tobias Other [facility] Other 10-09-2022 10:40-0400 Body weight 133.36 kg Martine Tobias Other [facility] Other 10-09-2022 10:40-0400 Diastolic blood pressure 88 mm[Hg] Martine Tobias Other [facility] Other 10-09-2022 10:40-0400 Systolic blood pressure 154 mm[Hg] Martine Tobias Other [facility] Other 10-03-2022 09:15-0400 Body height 160.02 cm Lili Burgos Other [facility] Other 10-03-2022 09:15-0400 Body mass index (BMI) [Ratio] 52.09 kg/m2 Lili Scally Other [facility] Other 10-03-2022 09:15-0400 Body weight 133.4 kg Lili Scally Other [facility] Other 10-03-2022 09:15-0400 Diastolic blood pressure 88 mm[Hg] Lili Scally Other [facility] Other 10-03-2022 09:15-0400 Respiratory rate 20 /min Lili Scally Other [facility] Other 10-03-2022 09:15-0400 SaO2% (BldA) [Mass fraction] 65 % Lili Scally Other [facility] Other 10-03-2022 09:15-0400 Systolic blood pressure 143 mm[Hg] Lili Scally Other [facility] Other 09-19-2022 13:49-0400 Diastolic blood pressure 109 mm[Hg] DO Kalie Rumschlag Work Phone: [facility] 09-19-2022 13:49-0400 Heart rate 94 /min DO Kalie Rumschlag Work Phone: [facility] 09-19-2022 13:49-0400 Respiratory rate 20 /min DO Kalie Rumschlag Work Phone: [facility] 09-19-2022 13:49-0400 SaO2% (BldA) [Mass fraction] 96 % DO Kalie Rumschlag Work Phone: [facility] 09-19-2022 13:49-0400 Systolic blood pressure 209 mm[Hg] DO Kalie Rumschlag Work Phone: [facility] 09-19-2022 13:42-0400 Body height 162.56 cm DO Kalie Rumschlag Work Phone: [facility] 09-19-2022 13:42-0400 Body weight 124.73 kg DO Kalie Rumschlag Work Phone: [facility] 08-12-2022 09:40-0400 Body height 160.02 cm [employer]ine[employer]oc[employer]us Other [facility] Other 08-12-2022 09:40-0400 Body mass index (BMI) [Ratio] 50.62 kg/m2 [employer] Other [facility] Other 08-12-2022 09:40-0400 Body weight 129.64 kg [employer] Other [facility] Other 08-12-2022 09:40-0400 Diastolic blood pressure 86 mm[Hg] [employer] Other [facility] Other 08-12-2022 09:40-0400 Systolic blood pressure 150 mm[Hg] [employer] Other [facility] Other 08-01-2022 09:15-0400 Body height 160.02 cm Lili Airamly Other [facility] Other 08-01-2022 09:15-0400 Body mass index (BMI) [Ratio] 50.62 kg/m2 Lili Scally Other [facility] Other 08-01-2022 09:15-0400 Body weight 129.64 kg Lili Scally Other [facility] Other 08-01-2022 09:15-0400 Diastolic blood pressure 84 mm[Hg] Lili Scally Other [facility] Other 08-01-2022 09:15-0400 Respiratory rate 18 /min Lili Scally Other [facility] Other 08-01-2022 09:15-0400 SaO2% (BldA) [Mass fraction] 95 % Lili Scally Other [facility] Other 08-01-2022 09:15-0400 Systolic blood pressure 130 mm[Hg] Lili Scally Other [facility] Other 06-06-2022 10:45-0400 Body height 160.02 cm Lili Scally Other [facility] Other 06-06-2022 10:45-0400 Body mass index (BMI) [Ratio] 50.43 kg/m2 Lili Scally Other [facility] Other 06-06-2022 10:45-0400 Body weight 129.14 kg Lili Scally Other [facility] Other 06-06-2022 10:45-0400 Diastolic blood pressure 76 mm[Hg] Lili Scally Other [facility] Other 06-06-2022 10:45-0400 Respiratory rate 18 /min Lili Scally Other [facility] Other 06-06-2022 10:45-0400 SaO2% (BldA) [Mass fraction] 96 % Lili Scally Other [facility] Other 06-06-2022 10:45-0400 Systolic blood pressure 131 mm[Hg] Lili Scally Other [employer] Other 03-06-2022 14:45-0500 Body height 160.02 cm Lili Scally Other [employer] Other 03-06-2022 14:45-0500 Body mass index (BMI) [Ratio] 46.81 kg/m2 Lili Scally Other [employer] Other 03-06-2022 14:45-0500 Body weight 119.89 kg Lili Scally Other [employer] Other 03-06-2022 14:45-0500 Diastolic blood pressure 72 mm[Hg] Lili Scally Other [employer] Other 03-06-2022 14:45-0500 Respiratory rate 18 /min Lili Scally Other [employer] Other 03-06-2022 14:45-0500 SaO2% (BldA) [Mass fraction] 96 % Lili Scally Other [employer] Other 03-06-2022 14:45-0500 Systolic blood pressure 112 mm[Hg] Lili Scally Other [employer] Other 10-28-2021 11:15-0400 Body height 160.02 cm Lili Scally Other [employer] Other 10-28-2021 11:15-0400 Body mass index (BMI) [Ratio] 45.49 kg/m2 Lili Scally Other [employer] Other 10-28-2021 11:15-0400 Body weight 116.48 kg Lili Scally Other [employer] Other 10-28-2021 11:15-0400 Diastolic blood pressure 83 mm[Hg] Lili Scally Other [employer] Other 10-28-2021 11:15-0400 Respiratory rate 18 /min Lili Scally Other [employer] Other 10-28-2021 11:15-0400 SaO2% (BldA) [Mass fraction] 97 % Lili Scally Other [employer] Other 10-28-2021 11:15-0400 Systolic blood pressure 133 mm[Hg] Lili Scally Other [employer] Other 07-04-2021 09:15-0400 Body height 160.02 cm Lili Scally Other [employer] Other 07-04-2021 09:15-0400 Body mass index (BMI) [Ratio] 45.79 kg/m2 Lili Scally Other [employer] Other 07-04-2021 09:15-0400 Body weight 117.26 kg Lili Scally Other [employer] Other 07-04-2021 09:15-0400 Diastolic blood pressure 83 mm[Hg] Lili Scally Other [employer] Other 07-04-2021 09:15-0400 Respiratory rate 18 /min Lili Burgos Other [employer] Other 07-04-2021 09:15-0400 SaO2% (BldA) [Mass fraction] 96 % Lili Burgos Other [employer] Other 07-04-2021 09:15-0400 Systolic blood pressure 125 mm[Hg] Lili Burgos Other [employer] Other 11-21-2020 10:30-0400 Body height 160.02 cm Clifford Munoz Jr. Other [employer] Other 11-21-2020 10:30-0400 Body mass index (BMI) [Ratio] 46.97 kg/m2 Clifford Munoz Jr. Other [employer] Other 11-21-2020 10:30-0400 Body weight 120.29 kg Clifford Munoz Jr. Other [employer] Other 11-21-2020 10:30-0400 Diastolic blood pressure 76 mm[Hg] Clifford Munoz Jr. Other [employer] Other 11-21-2020 10:30-0400 Respiratory rate 18 /min Clifford Munoz Jr. Other [employer] Other 11-21-2020 10:30-0400 SaO2% (BldA) [Mass fraction] 97 % Clifford Munoz Jr. Other [employer] Other 11-21-2020 10:30-0400 Systolic blood pressure 123 mm[Hg] Clifford Munoz Jr. Other [employer] Other Encounters Encounter Date Encounter Type Care Provider Facility Start: 03-26-2023 End: 03-26-2023 ambulatory AKANKSHA Bloom KRISHAN [facility] Start: 03-04-2023 End: 03-04-2023 ambulatory Lili Burgos Other [employer] Other Start: 03-04-2023 Telephone encounter Lili Bello [facility] Start: 02-10-2023 End: 02-10-2023 ambulatory JDUITH G AMANDA Not Available Start: 02-03-2023 (DM) Diabetes Lili Airamly [facility] Start: 02-03-2023 End: 02-03-2023 ambulatory Kalie Matthewsyednelly [employer] Other Start: 01-26-2023 End: 01-26-2023 ambulatory Lili Burgos Other [employer] Other Start: 01-26-2023 Telephone encounter Lili Bello [facility] Start: 01-15-2023 End: 01-15-2023 ambulatory BLANE FREDERICK Not Available Start: 01-15-2023 End: 01-15-2023 ambulatory JUDITH G AMANDA Not Available Start: 01-02-2023 End: 01-02-2023 ambulatory Lili Burgos Other [employer] Other Start: 01-02-2023 Telephone encounter Lili Bello [facility] Start: 12-31-2022 End: 12-31-2022 ambulatory JUDITH G AMANDA Not Available Start: 11-26-2022 (DM) Diabetes Lili Scally [facility] Start: 11-26-2022 End: 11-26-2022 ambulatory Lili Burgos Other [employer] Other Start: 11-25-2022 End: 11-25-2022 ambulatory Stoney Turner Other [employer] Other Start: 11-25-2022 Office outpatient ne w 30 minutes Stoney Turner [facility] Start: 11-12-2022 End: 11-12-2022 ambulatory Lili Aubrey Other [facility] [employer] Other Start: 11-12-2022 Telephone encounter Lili Airamwinston [facility] Start: 10-30-2022 End: 10-30-2022 ambulatory Martine Tobias Facility:[facility] Start: 10-30-2022 End: 10-30-2022 Admission to same day surgery center DO Judith Amanda Work Phone: [facility] Work Phone: Start: 10-30-2022 End: 10-30-2022 ambulatory DO Judith G Amanda Work Phone: [facility] Work Phone: Start: 10-09-2022 End: 10-09-2022 ambulatory Martine Tobias Other [employer] Other Start: 10-09-2022 Office outpatient visit 25 minutes Martine Tobias [facility] Start: 10-07-2022 End: 10-07-2022 ambulatory Martine Tobias Facility:[facility] Start: 10-07-2022 End: 10-07-2022 ambulatory DO Judith G Amanda Work Phone: [facility] Work Phone: Start: 10-07-2022 End: 10-07-2022 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 procedure DO Judith Amanda Work Phone: [facility] Work Phone: Start: 10-03-2022 (DM) Diabetes [facility]ili [facility] Start: 10-03-2022 End: 10-03-2022 ambulatory Lili Burgos Other [employer] Other Start: 10-03-2022 Registered Recurring DO Judith Newman Work Phone: [facility] Work Phone: Start: 09-26-2022 End: 09-26-2022 ambulatory Lili Burgos Other [employer] Other Start: 09-26-2022 Telephone encounter Lili Burgos [facility] Start: 09-19-2022 End: 09-19-2022 ambulatory Maritne Tobias Facility:[facility] Start: 09-19-2022 End: 09-19-2022 ambulatory DO Kalie Rumschlag Work Phone: [facility] Work Phone: Start: 09-19-2022 End: 09-19-2022 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 procedure DO Kalie Rumschlag Work Phone: [facility] [place] Work Phone: Start: 08-18-2022 End: 08-18-2022 ambulatory Martine Tobias Facility:[facility] Start: 08-18-2022 End: 08-18-2022 ambulatory DO Kalie Rumschlag Work Phone: [facility] Work Phone: Start: 08-18-2022 End: 08-18-2022 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 procedure DO Kalie Rumschlag Work Phone: [facility] [place] Work Phone: Start: 08-12-2022 End: 08-12-2022 ambulatory Martine Tobias Other [employer] Other Start: 08-12-2022 Office outpatient ne w 45 minutes Martine CALDERON [facility] Start: 08-12-2022 Telephone encounter [facility] Start: 08-05-2022 End: 08-05-2022 ambulatory Lili Airamly Other [facility] [employer] Other Start: 08-05-2022 Telephone encounter Lili Aubrey [facility] Start: 08-01-2022 (DM) Diabetes Lili Scally [facility] Start: 08-01-2022 End: 08-01-2022 ambulatory Lili Airamly Other [facility] [employer] Other Start: 08-01-2022 Registered Recurring DO Kalie Kasper Work Phone: [facility] Work Phone: Start: 07-22-2022 End: 07-22-2022 ambulatory Lili Airamly Other [facility] [employer] Other Start: 07-22-2022 Telephone encounter Lili Aubrey [facility] Start: 07-09-2022 End: 07-09-2022 ambulatory Lili Scally Other [facility] [employer] Other Start: 07-09-2022 Telephone encounter Lili Aubrey [facility] Start: 07-01-2022 End: 07-02-2022 ambulatory [facility] Facility:[facility]1 Start: 06-20-2022 End: 06-21-2022 [facility] Facility:[facility] Start: 06-16-2022 End: 06-16-2022 ambulatory Lili Scally Other [facility] [employer] Other Start: 06-16-2022 Telephone encounter Lili Aubrey [facility] Start: 06-06-2022 (DM) Diabetes Lili Scally [facility] Start: 06-06-2022 End: 06-06-2022 ambulatory Lili Airamly Other [employer] Other Start: 06-03-2022 End: 06-03-2022 ambulatory VELASQUEZ GAMINO . Facility: Start: 05-15-2022 End: 05-16-2022 ambulatory [facility] Facility: Start: 05-13-2022 End: 05-13-2022 ambulatory Lili Scally Other [employer] Other Start: 05-13-2022 Telephone encounter Lili Scally [facility] Start: 04-14-2022 End: 04-14-2022 ambulatory Lili Scally Other [employer] Other Start: 04-14-2022 Telephone encounter Lili Scally [facility] Start: 04-03-2022 End: 04-03-2022 ambulatory Lili Scally Other [employer] Other Start: 04-03-2022 Telephone encounter Lili Scally [facility] Start: 03-24-2022 End: 03-24-2022 ambulatory Lili Scally Other [employer] Other Start: 03-24-2022 Telephone encounter Lili Scally [facility] Start: 03-21-2022 End: 03-21-2022 ambulatory Lili Scally Other [employer] Other Start: 03-21-2022 Telephone encounter Lili Scally [facility] Start: 03-06-2022 (DM) Diabetes Lili Airamly [facility] Start: 03-06-2022 End: 03-07-2022 ambulatory [facility] [employer] Other Start: 02-13-2022 End: 02-14-2022 [facility] Facility:[facility]1 Start: 12-31-2021 End: 12-31-2021 ambulatory Lili Scally Other [employer] Other Start: 12-31-2021 Telephone encounter Lili Scally [facility] Start: 12-11-2021 [facility] Facility: Start: 11-20-2021 End: 11-20-2021 ambulatory Lili Scally Other [employer] Other Start: 11-20-2021 Telephone encounter Lili Scally [facility] Start: 11-06-2021 End: 11-07-2021 [facility] Facility:[facility] Start: 10-28-2021 (DM) Diabetes Lili Scally [facility] Start: 10-28-2021 End: 10-28-2021 ambulatory Lili Scally Other [employer] Other Start: 09-20-2021 End: 09-20-2021 ambulatory Lili Scally Other [employer] Other Start: 09-20-2021 Telephone encounter Lili Scally [facility] Start: 09-12-2021 End: 09-12-2021 ambulatory Lili Scally Other [employer] Other Start: 09-12-2021 Telephone encounter Lili Scally [facility] Start: 08-01-2021 End: 08-02-2021 [facility] Facility:[facility] Start: 07-22-2021 End: 07-22-2021 ambulatory Lili Scally Other [employer] Other Start: 07-22-2021 Telephone encounter Lili Scally [facility] Start: 07-08-2021 End: 07-08-2021 ambulatory Lili Burgos Other [employer] Other Start: 07-08-2021 Telephone encounter Lili [facility] Start: 07-04-2021 (DM) [facility] Start: 07-04-2021 End: 07-04-2021 ambulatory Lili Burgos Other [employer] Other Start: 06-20-2021 End: 06-20-2021 ambulatory Clifford Garciadiff Other [employer] Other Start: 06-20-2021 Telephone encounter Clifford Tammy B[facility] Start: 04-19-2021 End: 04-19-2021 ambulatory Clifford Munoz Other [employer] Other Start: 04-19-2021 Telephone encounter Clifford Munoz [facility] Start: 03-28-2021 End: 03-28-2021 ambulatory Clifford Munoz Other [employer] Other Start: 03-28-2021 Telephone encounter Clifford Tammy [facility] Start: 01-29-2021 End: 01-29-2021 ambulatory Clifford Munoz Jr. Other [employer] Other Start: 01-29-2021 Telephone encounter Clifford [facility] Start: 11-27-2020 Telephone encounter Clifford [facility] Start: 11-21-2020 (DM) Diabetes Clifford Munoz Jr. [facility] Start: 09-25-2016 End: 09-26-2016 Ambulatory QUE BLAKE Facility:[facility] Start: 09-20-2016 End: 09-20-2016 Emergency department patient visit LAUREN CARDENAS Facility:[facility] Start: 09-08-2016 End: 09-15-2016 Evaluation and management of inpatient QUE Merle PAULAADRY Facility:[facility] Procedures Date Procedure Procedure Detail Performing Clinician Start: 10-30-2022 Lumbosacral myelography DO Judith Amanda Work Phone: Start: 10-07-2022 Dual energy X-ray absorptiometry DO [employer] Work Phone: Start: 09-19-2022 MR lumbar spine wo con DO Kalie Tehnologii obratnyh zadachschlag Work Phone: Start: 08-18-2022 X-ray of lumbar spin e, six views including bending views DO Kalie Rumschlag Work Phone: Start: 09-08-2016 REPLACE OF R KNEE JT WITH SYNTH SUB, CEMENT, OPEN APPROACH QUE BLAKE Plan of Treatment Date Care Activity Detail Author Start: 10-30-2022 [facility] Start: 10-30-2022 Computerized axial tomography of lumbar spine with contrast [facility] Patient Education [facility] Work Phone: [facility] Immunizations Immunization Date Immunization Notes Care Provider Deb bhagat 06-12-2020 COVID-19 Vaccine Mod samuel - Documentation Purposes Only Clifford Munoz Jr. Other [facility] 05-15-2020 COVID-19 Vaccine Mod samuel - Documentation Purposes Only Clifford Munoz Jr. Other [facility] Payers Date Payer Category Payer Medicare [id number] 2019 Self-pay [id number] 2017 Medicare [id number] 2.1 [id number] 1960 Unknown [id number] 2.16.84 0.1.815115.3.579.2.593 1960 Unknown [id number] 2.16.84 0.1.877216.3.579.2.593 1960 Unknown [id number] 2.16.84 0.1.713415.3.579.2.593 1960 Unknown [id number] 2.16.84 0.1.042451.3.579.2.593 1960 Unknown [id number] 2.16.84 0.1.706064.3.579.2.593 1960 Unknown [id number] 2.16.84 0.1.763558.3.579.2.593 1960 Unknown [id number] 2.16.84 0.1.080070.3.579.2.593 1960 Unknown [id number] 2.16.84 0.1.614989.3.579.2.593 1960 Unknown [id number] 2.16.84 0.1.292108.3.579.2.593 1960 Unknown [id number] 2.16.840 .1.202147.3.579.2.1259 1960 Unknown [id number] 2.16.840 .1.216410.3.579.2.1259 1960 Unknown [id number] 2.16.840 .1.715789.3.579.2.1259 1960 Unknown [id number] 2.16.840. 1.260333.3.579.2.1259 1960 Unknown [id number] 2.16.8 40.1.697922.3.579.2.1286 1959 Medicare [id number] 2.1 [id number] 1959 Private Health Insurance [id number] Medicare [id number] 2.16 .840.1.867530.19 Unknown [id number] 2.16.8 40.1.494481.3.579.2.531 Unknown [id number] 2.16.8 40.1.083555.3.579.2.531 Unknown [id number] 2.16.8 40.1.460631.3.579.2.531 Unknown [id number] 2.16.8 40.1.359005.3.579.2.531 Unknown [id number] 2.16.8 40.1.822163.3.579.2.531 Social History Date Type Detail Facility Unknown if ever smoked [employer] Other Sex Assigned At Sex Assigned At Bir th [employer] Other Start: 01-03-2021 Tobacco smoking status NHIS Ex-smoker (finding) [facility] Start: 1960 Sex Assigned At Female F [facility] Medical Equipment Procedure Code Equipment Code Equipment Origin al Text Equipment Identifier Dates Arthroplasty, knee, total, minimally invasive Orthopaedic cement, non-medicated [id number] FDA Start: 01-03-2021 Arthroplasty, knee, total, minimally invasive Uncoated knee femur prosthesis ()[id number] FDA Start: 01-03-2021 Arthroplasty, knee, total, minimally invasive Tibial insert ()[id number] FDA Start: 01-03-2021 Arthroplasty, knee, total, minimally invasive Polyethylene patella prosthesis ()[id number] FDA Start: 01-03-2021 Arthroplasty, knee, total, minimally invasive Uncoated knee tibia prosthesis, metallic ()[id number] FDA Start: 01-03-2021 Start: 01-29-2021 Clinical Notes [...] to restart. Defers CGM d/t cost. Sampled Dianne 12.06/999 and given voucher Aubree_ _ should buy 6 weeks of treatment with SGLT2i while settling out LOW INCOME SUBSIDY as recommended by BI for PAP Aubree. (knows to hold Metfromin while on Synjardy) [...] of insulin. Patient deferred due to her foo-pt-yqcycd cost. We will retry in a couple [...] at goal of less than 130/80 Jan, care home current use of insulin (ICD-10 - Z79.4) Jan, BMI 50.0-59.9, adult (ICD-10 - Z68.43) [employer] Other 10-11-2023 Evaluation note* Encounter Date Diagnosis [...] prohibitive. Could also consider patient assistance with [facility] for [employer] We did have a conversation about her [...] of insulin. Patient deferred due to her jvh-av-ztynhx cost. We will retry in a couple [...] at goal of less than 130/80 Nov, care home current use of insulin (ICD-10 - Z79.4) Nov, BMI 50.0-59.9, adult (ICD-10 - Z68.43) [employer] Other 10-10-2023 Evaluation note* Encounter Date Diagnosis [...] Nov, Other chronic pain (ICD-10 - G89.29) [employer] Other 08-24-2023 Evaluation note* Encounter Date Diagnosis [...] of lumbar spinal fusion (ICD-10 - Z98.1) [employer] Other 08-18-2023 Evaluation note* Encounter Date Diagnosis [...] of insulin. Patient deferred due to her tsa-jh-wwgqda cost. We will retry in a couple [...] Pressure: Care Instructions material was published to [place] Blood pressure above goal today at 143/88, goal of less than 130/80 Sep, care home current use of insulin (ICD-10 - Z79.4) Sep, BMI 50.0-59.9, adult (ICD-10 - Z68.43) [employer] Other 06-27-2023 Evaluation note* Encounter Date Diagnosis Assessment Notes Treatment Notes Treatment Clinical Notes Jul, Lumbar radiculopathy (ICD-10 - M54.16) Independently reviewed the CT of the lumbar spine from 03/06/22, reviewed ytpy-yz-cnbv with patient which shows which shows multilevel degenerative changes with mild to moderate canal and foraminal narrowing at the L4-L5. Shows posterior mechanical fusion at the L1-S1 with posterior decompression at the L1-L3. Patient had physical therapy at [facility] and continues to do the home physical therapy without improvement. Will order xray lumbar 6 view to rule out any spondylolisthesis. Will order MRI to rule out any cord compression. Will get release of information from pain management Dr. Cook and [facility] physical therapy for continuity of care.Will order Aqua therapy. OARRS reviewed. pharmacological management reviewed, will continue with current prescriptions as prescribed. Will add lidocaine patch and ocmv-kvz-occfwag Thermo patch. Will follow-up in 8 weeks [...] rule out osteoporosis Jul, Other OARRS reveiwed [employer] Other 06-16-2023 Evaluation note* Encounter Date Diagnosis [...] of insulin. Patient deferred due to her qpk-nw-neflsk cost. We will retry in a couple [...] Instructions material was published to portal Jul, care home current use of insulin (ICD-10 - Z79.4) Jul, BMI 50.0-59.9, adult (ICD-10 - Z68.43) [employer] Other 04-21-2023 Evaluation note* Encounter Date Diagnosis [...] receiving via patient assistance. Patient is interested [employer] likely cost prohibitive as not covered on [...] Instructions material was published to portal May, care home current use of insulin (ICD-10 - Z79.4) May, BMI 50.0-59.9, adult (ICD-10 - Z68.43) May, Other Expect improvement with escalation of Ozempic to 2.0 mg subcu daily. Weight up today without decrease in insulin needs, no increases satiety The patient was given a Dexcom G6 sample and loaned an Office owned Dexcom G6 Broadcast Maintenance Engineer. The sensor was placed on the back of her right arm by this educator. The patient was shown how to unlock the exercise physiologist certified and read her BG. 15 minutes were spent placing the sensor and educating the patient by Lit Dixon RN, [facility] . [employer] Other 03-30-2023 NoteCONSULTATION CONSULTATION DATE: 05/15/2022 TO: [...] of the iliohypogastric nerve under fluoroscopic guidance.[facility], [id number] Evaluation note* Encounter Date Diagnosis Assessment Notes [...] Instructions material was published to portal Feb, care home current use of insulin (ICD-10 - Z79.4) Feb, BMI 45.0-49.9, adult (ICD-10 - Z68.42) Expect improvement with escalation of Ozempic to 2.0 mg subcu daily. Weight up today without decrease in insulin needs, no increases satiety [employer] Other 12-29-2022 NoteCONSULTATION CONSULTATION DATE: 02/13/2022 HISTORY [...] is able to walk unassisted. Medications include [place] 5/325 t.i.d., baclofen 10 mg q.h. s., [...] b.i.d. A referral will be sent to [facility] Neurosurgery to Dr. Moses Goetz for evaluation and patient is in complete agreement with this. We will continue to maintain her medications at this time, which will include Lyrica, B[place] and baclofen. We will see the patient in three months' time, unless otherwise indicated. Patient was asked to call the office with an update once she has seen Neurosurgery.[facility] 12-31-2021 Evaluation note* Encounter Date Diagnosis Assessment Notes Treatment Notes Treatment Clinical Notes Dec, Type 2 diabetes mellitus with hyperglycemia (ICD-10 - E11.65) [employer] Other 09-21-2022 NoteCONSULTATION CONSULTATION DATE: 11/06/2021 HISTORY [...] secondary to her pain. 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 Weight slightly improving. hopeful for continue reduction to increase insulin sensitivity and decrease insulin needs. [employer] Other 06-16-2022 NoteCONSULTATION CONSULTATION DATE: 08/01/2021 HISTORY [...] burn but manageable. Her current medications are B[place] 5/325 t.i.d., baclofen 10 mg q.h.s. and [...] move forward with aqua therapy at the [place] location. I did discuss vitamins with her as well as nutrition importance. Patient will be seen at the clinic in three months' time unless otherwise indicated. [facility] Signed and Approved by: ALICIA HERNANDEZ . 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 [employer] Other 10-06-2021 Evaluation note* Encounter Date Diagnosis [...] Prescriptions: None needed at this time. 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) Nov, HTN (hypertension) (ICD-10 - I10) High Blood Pressure: Care Instructions material was published to [employer] Nov, Hyperlipidemia (ICD-10 - E78.5) Learning About High Cholesterol material was published to [employer] Nov, Dietary counseling and surveillance (ICD-10 - Z71.3) Learning About Healthy Weight material was published to [employer] Nov, BMI 45.0-49.9, adult (ICD-10 - Z68.42) Nov, Albuminuria (ICD-10 - R80.9) Nov, BMI 50.0-59.9, adult (ICD-10 - Z68.43) Nov, Other Learning About Vitamin D material was published to [employer] Other Evaluation noteNo InformationNort [employer] Other Evaluation noteNo assessment information available [facility] Work Phone: [facility] general Narrative - Reported* Type Description Date Medical History RSD Medical History fibromyalgia Medical History hypertension Medical History type II diabetes Surgical History C section X3 Surgical History rotator cuff tear repair Surgical History back surgery x3 Surgical History knee surgery Surgical History hysteroscopy 05/30 Surgical History c5-c6 plates & screws Surgical History D&C 05/30 Hospitalization History see above [employer] Other History general Narrative - Reported* Type Description Date Medical History RSD Medical History fibromyalgia Medical History hypertension Medical History type II diabetes Surgical History C section X3 Surgical History rotator cuff tear repair Surgical History back surgery x3 Surgical History knee surgery Surgical History hysteroscopy 4/14 Surgical History c5-c6 plates & screws Surgical History D&C / Surgical History knee replacement, Left 12/2020 Hospitalization History see above [employer] Other History general Narrative - Reported* Type [...] replacement, Left 12/2020 Hospitalization History see above [employer] Other [email or web address] general Narrative - Reported* Type Description Date [...] bilatera l 2021 Hospitalization History see above [employer] Other [facility] general Narrative - Reported* Type Description Date [...] Hospitalization History see above Hospitalization History [facility] 02/2022 [employer] Other [facility] general Narrative - Reported* Type Description Date [...] Hospitalization History see above Hospitalization History [facility] 02/2022 [facility] [employer] Other History [facility] - [facility] [employer] Other Summary Purpose Family History No Family [...] 1 BMI 50.0-59.9, adult (Z68.43) Referral Organization [facility] Referring Provider First Name Martine Referring Provider Last Name Tobias Referring Provider Specialty Nurse Pract itioner Referred Organization [facility] Referred Address [address] [place] [place], [place],[address] Referred Provider Specialty Neurology Referral Priority Routine Reason evaluate and treat - tremors Diagnosis 1 BMI 50.0-59.9, adult (Z68.43) Referral Organization [facility] Referring Provider First Name Martine Referring Provider Last Name Tobias Referring Provider Specialty Nurse Pract itioner Referred Organization [facility] Referred Address [address] [place], [place],[address] Referred Provider Specialty Neurology Referral Priority Routine Reason Evaluate and treat - osteoporosis Diagnosis 1 BMI 50.0-59.9, adult (Z68.43) Referral Organization [facility] Referring Provider First Name Martine Referring Provider Last Name Tobias Referring Provider Specialty Nurse Pract itioner Referred Organization [facility] Referred Provider Jennifer Siu Referred Address [address] [place] [place], [place],[address] Referred Provider Specialty Nurse Pracphilipp tioneyasmine Referral Priority Routine Additional Source Comments INFORMATION SOURCE (unrecogn ized section and content) DATE CREATED AUTHOR 08/12/2017 [facility] DATE CREATED AUTHOR AUTHOR'S ORGANIZ ATION 07/02/2022 [facility] DATE CREATED AUTHOR AUTHOR'S ORGANIZ ATION 02/04/2023 [facility] DATE CREATED AUTHOR AUTHOR'S ORGANIZ ATION 02/12/2023 [facility] DATE CREATED AUTHOR AUTHOR'S ORGANIZ ATION 03/30/2023 [facility] REASON FOR VISIT (unrecogniz ed section and content) DM 3 month follow upNo Infor [facility] Pt does not wish our services 03/28/21Cancelled. Requested we do not call to r/sDLC pen needlesDC VoicemailDC Basaglar refillDS Basaglar refillDS Jardiance RefillDM follow up, Type 2 IDDM, Accu Chek Guide MeterDS OzempicDS Basaglar alternativeDS Ozempic costDM, DM follow up, Type 2 IDDM, Accu Chek Guide Meter, [facility] Visit CodesDS Ozempic Sunitha PAP questionDS RefillDM rescheduled appt, DM, DM follow up, Type 2 IDDM, Accu Chek Guide Meter, [facility] Visit Codes, [facility] Visit CodesDS please callDS PAP/OzempicDS PAP OzempicDS med change?DS Tresiba/PAPDS Bella fell off3 month Follow up, Type 2 IDDM, Accu Chek Guide MeterDS Bella 28 weeks, 3 month Follow up, Type 2 IDDM, Accu Chek Guide MeterDS LabsDS Jardiance denial/ low income subsidyreferred by [employer] low back painDS-PAP OzempicMRI, Dexa resultsDM, Type [...] Team Status: Inactive Member Role Status Dates ANH FriasC Attending Provider Active Judith Newman , DO [...] BE BASED ON THE PRIMARY CLINICAL RECORDS. [employer] provides no warranty or guarantee of the accuracy or completeness of information in this document.
--- NOTE | 2023-04-02 09:17 | PM.CN ---
Consult Note: HPI Data of Consult Patient: known to practice within the last 3 years Requesting Physician: Shama Allen NP Primary Care Provider: [facility] Consult Narrative Reason for consult: F/u Narrative: Lesli Clay a pleasant 62 year old female presents for evaluation and management of chronic low back pain and bilateral hip/buttock pain. Today pain 4/10 increasing to 8/10 with activity. Patient reports aching. Patient finding benefit to current medication regimen without side effects. Has not followed up with orthopedics since last visit as reported she would for bilateral knee pain, in the past BMI was preventing surgical intervention. BMI today 51. Patient found significant relief, greater than 80%, immediately following and 2 hours after bilateral superior gluteal nerve block. cc:: CC: Shama Allen NP Review of Systems ROS Status of ROS 10 or more systems reviewed and unremarkable except as noted in history and below Musculoskeletal Reports: back pain and joint pain PFSH PFSH Medical History Anesthesia complication ?T88.59XA - Other complications of anesthesia, initial encounter (ICD-10) Postmenopausal ?Z78.0 - Asymptomatic menopausal state (ICD-10) RSD (reflex sympathetic dystrophy) ?G90.50 - Complex regional pain syndrome I, unspecified (ICD-10) Low back pain ?M54.50 - Low back pain, unspecified (ICD-10) Osteoarthritis ?M19.90 - Unspecified osteoarthritis, unspecified site (ICD-10) Shingles ?B02.9 - Zoster without complications (ICD-10) Anxiety ?F41.9 - Anxiety disorder, unspecified (ICD-10) Obesity ?E66.9 - Obesity, unspecified (ICD-10) Heartburn ?R12 - Heartburn (ICD-10) Acid reflux ?K21.9 - Gastro-esophageal reflux disease without esophagitis (ICD-10) Diabetes 1.5, managed as type 2 ?E13.9 - Other specified diabetes mellitus without complications (ICD-10) Hypercholesterolemia ?E78.00 - Pure hypercholesterolemia, unspecified (ICD-10) Hypertension ?I10 - Essential (primary) hypertension (ICD-10) Surgical History History of fusion of cervical spine ?Z98.1 - Arthrodesis status (ICD-10) H/O hemorrhoidectomy ?Z98.890 - Other specified postprocedural states (ICD-10) History of delivery ?Z98.891 - History of uterine scar from previous surgery (ICD-10) Hx of arthroscopy of knee ?Z98.890 - Other specified postprocedural states (ICD-10) H/O repair of rotator cuff ?Z98.890 - Other specified postprocedural states (ICD-10) H/O dilation and curettage ?Z98.890 - Other specified postprocedural states (ICD-10) History of hysteroscopy ?Z98.890 - Other specified postprocedural states (ICD-10) H/O lumbar discectomy ?Z98.890 - Other specified postprocedural states (ICD-10) History of lumbar laminectomy ?Z98.890 - Other specified postprocedural states (ICD-10) S/P trigger finger release ?Z98.890 - Other specified postprocedural states (ICD-10) Meds Home Medications and Allergies Home Medications Medication Instructions Recorded Confirmed Type Pamelor 100 mg PO .hs 07/16/22 03/24/23 History aripiprazole 5 mg tablet (Abilify) 5 mg PO QDAY 07/16/22 03/24/23 History atorvastatin 40 mg tablet 40 mg PO QDAY 07/16/22 03/24/23 History bupropion HCl 300 mg 24 hr tablet, 300 mg PO QDAY 07/16/22 03/24/23 History extended release (Wellbutrin XL) lisinopril 5 mg tablet 5 mg PO QDAY 07/16/22 07/22/22 History metformin 1,000 mg tablet 1,000 mg PO BID 07/16/22 03/24/23 History metoprolol tartrate 25 mg tablet 25 mg PO BID 07/16/22 03/24/23 History omeprazole 20 mg capsule,delayed 20 mg PO QDAY 07/16/22 03/24/23 History release pregabalin 75 mg capsule (Lyrica) 75 mg PO BID 07/16/22 03/24/23 History tizanidine 4 mg capsule (Zanaflex) 4 mg PO Q12H 07/16/22 03/24/23 History oxycodone-acetaminophen 5 mg-325 1 tab PO TID PRN pain #90 tabs 12/10/22 03/24/23 Rx mg tablet (Percocet) oxycodone-acetaminophen 7.5 mg-325 1 tab PO TID PRN pain #75 tabs 01/07/23 03/24/23 Rx mg tablet (Percocet) oxycodone-acetaminophen 7.5 mg-325 1 tab PO TID PRN pain #90 tabs 02/02/23 03/24/23 Rx mg tablet (Percocet) oxycodone-acetaminophen 7.5 mg-325 1 tab PO TID PRN pain #90 tabs 03/04/23 03/24/23 Rx mg tablet (Endocet) pregabalin 75 mg capsule (Lyrica) 75 mg PO BID #60 caps 03/04/23 03/24/23 Rx Allergies Allergy/AdvReac Type Severity Reaction Status Date / Time No Known Drug Allergies Allergy Verified 03/24/23 08:29 Exam Constitutional Documenting provider has reviewed patient's vital signs: yes Common normals: no apparent distress, oriented x3, healthy appearing, alert and well nourished General appearance: cooperative [facility] Common normals: normocephalic, hearing grossly normal bilaterally and moist oral mucous membranes Head and scalp: normocephalic Eye Common normals: PERRL Pupil: PERRL Neck & C-Spine Common normals: full ROM General: normal visual inspection Chest Common normals: inspection of chest normal Respiratory Common normals: normal respiratory effort, no retractions and no use of accessory muscles Back & Pelvis Thoracic spine/upper back: normal to inspection and thoracic ROM normal Lumbar spine/lower back: ROM limited, pain with ROM and straight leg raise negative bilaterally Sacroiliac joints: SI joint(s) abnormal Other: pain over bilateral superior gluteal nerves, worse upon palpation positive fabers/fadirs gaenslens and thigh thrust, tender over bilateral PSIS Extremity Common normals: normal to inspection and full ROM Right lower extremity: knee joint Left lower extremity: knee joint Other: R/L knee pain, limited ROM, decrease in strength. Neuro Common normals: oriented x3, CN's II-XII intact bilaterally, moves all extremities, no focal motor deficits, no sensory deficits noted and deep tendon reflexes 2+ bilaterally Sensorium/orientation: alert Gait (neuro): antalgic Motor exam: strength 5/5 throughout and no movement abnormalities noted Psych Common normals: mental status grossly normal, thought process normal, cooperative, affect normal, speech normal and activity/motor behavior normal Speech: normal speech Thought process: normal thought process Results Additional Findings Additional findings: I have checked an OARRS report on this patient today and there are no aberrancies noted in the prescribing history.?? A drug screen was completed and reviewed within the last year, and if there has not been a drug screen completed we ordered one today to monitor higher risk, state monitored pain medication use. As part of providing excellent, safe, comprehensive care, the following was completed at our patient's visit: 1. A medication reconciliation and review to ensure accurate knowledge of current/active medications, including asking our patients to inform us about any awnt-guc-efkuuve medications or herbal remedies/nutritional supplements/alternative remedies. 2. A review to specifically ensure our patients have had annual screening for: elevated body mass index (BMI), tobacco use, screening for depression, and screening for unhealthy alcohol use. When screening is concerning, patients are provided with education and the specific recommendation to discuss the concerning health issue and treatment options with their primary care provider. Assessment and Plan Assessment and Plan (1) Unspecified mononeuropathy of right lower limb: (2) Unspecified mononeuropathy of left lower limb: (3) Chronic prescription opiate use: Assessment and Plan: I feel these medications are improving the patient's quality of life and allow them to tolerate activities of daily living as well as participate in recreational activity.? The patient does not report intolerable side effects. The patient is NOT opioid naive and non-pharmacologic and non-opioid treatment has failed to significantly relieve the patient's pain and improve functionality. The patient has a diagnosis that is related to a somatic or visceral pain etiology. ? ?? I reviewed with the patient the potential risks and side effects with the use of? opioid medications including but not limited to respiratory depression,? sedation, and even . I verified the patient has access to naloxone should? these effects occur. I advised the patient to avoid the use of any other? sedation substances including alcohol, THC, and benzodiazepines while? taking opioid medications due to the risk of compounding side effects and? detrimental outcomes. I reviewed the CONTROL OFFICER, pain treatment agreement, urine? drug screen, and opioid start talking forms. The patient was advised to let? their family know they had Naloxone in case they would need to administer? the medication.? ?? A drug screen was completed within the last year, and no aberrancies were noted regarding their use of controlled substances. The patient understands they are subject to the terms and conditions of the pain contract that they have signed. ? ?? I have checked an OARRS report on this patient today and there are no aberrancies noted in the prescribing history.? (4) Muscle spasm: (5) Bilateral knee pain: (6) Obesity: Assessment and Plan: The patient was counseled that proper dietary changes and consistent participation in a home exercise plan can lead to weight loss. Weight loss can help to improve functionality in patients with chronic pain.? (7) Lumbar spondylosis: (8) Spinal stenosis of lumbar region: (9) Lumbar radiculopathy: Plan right then left superior gluteal nerve thermal RFA under fluoroscopy with IV sedation, risks vs benefits discussed. Patient experienced severe pain, anxiety, and distress during nerve block and this increases the risks for complications, it is essential to complete RFAs with IV sedation to decrease risk of complications. Patient is high risk for anesthesia due to BMI, body composition, and comorbidities will have to review with anesthesiology. continue percocet to 7.5-325mg BID-TID PRN moderate to severe pain, continues to find functional improvement without side effects narcan discussed and prescribed continue lyrica 75mg BID continue zanaflex 4mg BID continue Wellbutrin 300mg daily UDS today f/u 1 month after completion of RFAs
== END 2023-04-02 09:04 | disposition home or self-care (01) ==
PROVIDERS: Visit Provider Nurse Practitioner
DX: G57.83 Other specified mononeuropathies of bilateral lower limbs (principal); Z79.891 Long term (current) use of opiate analgesic; M62.838 Other muscle spasm; M25.561 Pain in right knee; M25.562 Pain in left knee; E66.9 Obesity, unspecified; M47.816 Spondylosis without myelopathy or radiculopathy, lumbar region; M48.062 Spinal stenosis, lumbar region with neurogenic claudication; M54.16 Radiculopathy, lumbar region
CPT/HCPCS: G0463

== ENCOUNTER 2023-04-23 10:29 | Outpatient (OUT) | payer MEDICARE, SELFPAY ==
--- NOTE | 2023-04-23 10:33 | US_ITS ---
[address] [address] Patient Name: JEANETTE FRAGA MRN: [id number] date: 1960 Sex: F Assigned Patient Location: [facility] Current Patient Location: [facility] Accession/Order Number: [id number] Exam Date: 04/23/2023 10:35 Report Date: 04/23/2023 12:08 At the request of: STEFANY GARCIA Procedure: US pelvis w/ transvaginal EXAMINATION: US pelvis w/ transvaginal HISTORY: POST MENOPAUSAL BLEEDING COMPARISON: No relevant comparison available. TECHNIQUE: Transabdominal and/or transvaginal sonographic examination was performed as indicated by examination type. FINDINGS: UTERUS: Normal size and appearance. Uterus size: 7.6 x 3.1 x 4.6 cm ENDOMETRIUM: Normal homogeneous appearance. Endometrial thickness: 8 mm RIGHT OVARY: Not seen. LEFT OVARY: Not seen. CUL-DE-SAC: Unremarkable. No significant free fluid. BLADDER: Unremarkable. OTHER: None. US/US pelvis w/ transvaginal IMPRESSION: 1. Limited examination due to patient body habitus. 2. No appreciable abnormality of the uterus and endometrium. 3. Neither ovary could be identified. No suspicious adnexal findings. Electronically authenticated by: BLANE THOMAS Date: 04/23/2023 12:08
== END 2023-04-23 10:30 | disposition home or self-care (01) ==
LOC: NOMS 10:30
PROVIDERS: Visit Provider Obstetrics & Gynecology
DX: N95.0 Postmenopausal bleeding (principal)
CPT/HCPCS: 76830; 76856

== ENCOUNTER 2023-05-12 09:48 | Outpatient (OUT) | payer MEDICARE, SELFPAY ==
--- OUTSIDE RECORDS SUMMARY | 2023-05-12 09:53 | XMS_ITS | CCD ---
Author Organization [facility] Care Team Providers [employer] Name Role Phone QUE BLAKE Unavailable Unavailable QUE BLAKE Unavailable Unavailable SELF, REFERRED Unavailable Unavailable OLIVE, ROSALES Unavailable Unavailable ND Unavailable Unavailable QUE BLAKE Unavailable Unavailable WIEPKING, LAUREN Unavailable Unavailable SELF, REFERRED Unavailable Unavailable RICKY, JULIEN Unavailable Unavailable OLIVE, ROSALES Unavailable Unavailable QUE BLAKE Unavailable Unavailable QUE BLAKE Unavailable Unavailable QUE BLAKE Unavailable Unavailable OLIVE, ROSALES Unavailable Unavailable Clifford Munoz Jr. Unavailable [phone] Clifford Munoz Unavailable Lili Burgos Unavailable [facility] Unava ilable OLIVIER ., DR ADAM Liu Admitting Unavailable AGUAYO ., DR ADAM Liu Attending Unavailable HERNANDEZ ., ALICIA Consulting Unavailable LAKSHMIPATHY ., NARENDRANATH Consulting Daphne vailable [facility] Unava ilable LAKSHMIPATHY ., NARENDRANATH Admitting Daphne vailable LAKSHMIPATHY ., NARENDRANATH Attending Daphne vailable [facility] Unava ilable MARTHA, DR BLANE Cutler Consulting Unavailable HERNANDEZ .ALICIA Admitting Unavailable HERNANDEZ ., ALICIA Attending Unavailable HERNANDEZ ., ALICIA Consulting Unavailable [facility] Unava ilable HALKER ., JASON Attending Unavailable HALKER .JASON Consulting Unavailable LAKSHMIPATHY ., NARENDRANATH Admitting Daphne vailable [facility] Unava ilable HALKER ., JASON Admitting Unavailable HALKER ., JASON Attending Unavailable LAKSHMIPATHY ., NARENDRANATH Consulting Daphne vailable [facility] Unava ilable AGUAYO ., DR ADAM Liu Admitting Unavailable AGUAYO ., DR ADAM Liu Attending Unavailable HERNANDEZ ., ALICIA Consulting Unavailable [facility] Unava ilable HERNANDEZ ., ALICIA Consulting Unavailable AGUAYO ., DR ADAM Liu Attending Unavailable AGUAYO ., DR ADAM Liu Admitting Unavailable [facility] Unava ilable AGUAYO ., DR ADAM Liu Admitting Unavailable AGUAYO ., DR ADAM Liu Attending Unavailable HERNANDEZ ., ALICIA Consulting Unavailable [facility] Unava ilable LAKSHMIPATHY ., NARENDRANATH Admitting Daphne vailable LAKSHMIPATHY ., NARENDRANATH Attending Daphne vailable LAKSHMIPATHY ., NARENDRANATH Consulting Daphne vailable Martine Tobias Unavailable Majo, DO Jade Primary Care Provider Majo, DO Jade Attending Provider [phone] DO Judith Newman Primary Care Provider [phone] UMU Tobias Attending Provider Majo, DO Jade Primary Care Provider Majo, DO Jade Attending Provider [phone] Stoney Turner Unavailable AKANKSHA NICKERSON Attending Unavailable JUDITH NEWMAN Referring Unavailable JUDITH NEWMAN Primary Care Unavailable Majo, Kalie Primary Care Provider Majo, Kalie Attending Provider [phone] Martine Tobias Admitting Unavailable Martine Tobias Attending Unavailable Judith Newman Primary Care Unavailable Martine Tobias Admitting Unavailable Martine Tobias Attending Unavailable Basil Newmanee G Primary Care Unavailable Martine Tobias Admitting Unavailable Martine Tobias Attending Unavailable Basil Newmanee G Primary Care Unavailable Rumcurtislanelly Kalie Admitting Unavailable Rummerry, Kalie Primary Care Unavailable Malaika Kasperty Attending Unavailable Lili Burgos Admitting Unavailable Lili Burgos Attending Unavailable Judith Newman Primary Care Unavailable Martine Tobias Attending Unavailable Martine Tobias Admitting Unavailable Judith Newman Primary Care Unavailable JUDITH NEWMAN Attending Unavailable JUDITH NEWMAN Attending Unavailable JUDITH NEWMAN Attending Unavailable STEFANY GARCIA Attending Unavailable JAYSON INGRAM Attending Unavailab STEFANY Palomino Attending Unavailable BLANE FREDERICK Attending Unavailable Medications [...] Subcutaneous weekly for 90 days PAP Active acetaminophen 325 mg / oxyCODONE hydrochloride 7.5 mg oral tablet (15 sources) Opioid Agonist Start: 04-06-2023 take 1 tablet by mouth three times daily Oxycodone-Acetaminophen Active 1 TAB PO Three times daily April 06, 2023 1:00am Start: 01-03-2021 End: 10-30-2022 take 1 tablet by mouth every six hours Oxycodone-Acetaminophen (Percocet) 5-325 mg tablet Discontinued 1 TAB PO Q6H 28 7 January 03, 2021 October 30, 2022 9:55am ARIPiprazole 15 mg oral tablet (20 sources) Atypical Antipsychotic Start: 04-06-2023 take 15 mg by mouth once daily Aripiprazole Active 15 MG PO Daily April 06, 2023 1:00am Start: 12-17-2020 End: 04-06-2023 take 10 mg by mouth once daily Aripiprazole Discontinu ed 10 MG PO Daily December 17, 2020 12:00am April 06, 2023 5:24pm take 1 tablet by mickey th every [...] MG PO Daily December 17, 2020 12:00am cholecalciferol 0.05 mg oral tablet (20 sources) Vitamin D Start: 04-06-2023 take 100 ug by mouth once daily Cholecalciferol (Vitamin D3) Active 100 MCG PO Daily April 06, 2023 1:00am Start: 08-01-2022 Start: 08-01-2022 take 1 capsule by [facility] every week Start: 08-01-2022 take 1 capsule by [facility] every week Cholecalciferol 1.25 MG (67652 UT) 1 capsule Orally weekly for 56 days Then OtC 4000 u daily therafter Jul, Active take 2 tablets by [facility] every twenty-four hours Vitamin D3 50 MCG (2000 UT) 2 tablets Orally Once a day Not-Taking/PRN take 1 capsule by [facility] every week Cholecalciferol 100 MCG (4000 UT) 1 capsule Orally weekly for 56 days Then OtC 4000 u daily therafter Active take 1 capsule by [facility] every week Cholecalciferol 50 MCG (2000 UT) 1 capsule Orally weekly for 56 days Then OtC 4000 u daily therafter Active take 1 capsule by [facility] every week Cholecalciferol 1.25 MG (57802 UT) 1 capsule Orally weekly for 56 days Then OtC 4000 u daily therafter Active clotrimazole 10 mg/ml topica l cream (20 sources) Azole Antifungal Clotrimazole 1 % 1 application Externally Twice a day as needed Active Clotrimazole 1 % 1 application Externally Twice a day Active 24 hr empagliflozin 12.5 mg / metFORMIN [...] Jan, Active fluocinonide 1 mg/ml topical cream (7 sources) Corticosteroid Start: 12-17-2020 Fluocinonide Active 1 APPLIC TOPICAL 2-4 TIMES PER DAY December 17, 2020 12:00am hydroCHLOROthiazide 12.5 mg / losartan potassium 50 mg oral tablet (12 sources) Thiazide Diuretic, Angiotensin 2 Receptor Karrie take 1 tablet by mouth every twenty-four hours Losartan Potassium-HCTZ 50-12.5 MG 1 tablet Orally Once a day Active take 1 tablet by mouth every twe nty-four hours hydrOXYzine hydrochloride 10 mg oral tablet (1 source) Antihistamine Start: 05-11-2023 take 10 mg by mouth three times daily Hydroxyzine Hcl Active 10 MG PO Three times daily May 11, 2023 12:00am 3 ml insulin aspart, human 100 unt/ml pen injector (1 source) Insulin Analog Start: 04-07-2023 Insulin Aspart (Niacinamide) (Fiasp Flextouch U-100 Insulin) 100 unit/mL (3 mL) insulin pen Active 1 sliding scale dose SUBCUT Use as Directed April 07, 2023 1:00am Corrective scale AC/HS 1:50, QID. Expect up to 30 u per day Insulin Degludec (Tresiba Flextouch U-100) 100 unit/mL (3 mL) insulin pen (3 sources) Start: 05-11-2023 Insulin Deglud ec (Tresiba Flextouch U-100) 100 unit/mL (3 mL) insulin pen Active 50 UNIT SUBCUT Daily May 11, 2023 11:44am Start: 04-06-2023 End: 05-11-2023 Insulin Degludec (Tresiba Fl extouch U-100) 100 unit/mL (3 mL) insulin pen Discontinued 54 UNIT SUBCUT Daily April 06, 2023 1:00am May 11, 2023 11:50am Start: 04-06-2023 Insulin Deglud ec (Tresiba Flextouch U-100) 100 unit/mL (3 mL) insulin pen Active 54 UNIT SUBCUT Daily April 06, 2023 12:00am metFORMIN hydrochloride 1000 mg oral tablet (20 sources) Biguanide Start: 12-17-2020 take 1000 mg by mouth twice daily Metformin Active 1000 MG PO Twice daily December 17, 2020 12:00am metoprolol tartrate 25 mg oral tablet (2 sources) beta-Adrenergic Karrie Start: 04-06-2023 take 25 mg by mouth twice daily Metoprolol Tartrate Active 25 MG PO Twice daily April 06, 2023 1:00am nortriptyline 50 mg oral capsule (20 sources) Tricyclic Antidepressant Start: 05-11-2023 take 150 mg by mouth once daily Nortriptyline Active 150 MG PO Daily May 11, 2023 11:45am Start: 12-17-2020 End: 05-11-2023 take 100 mg by mouth once daily Nortriptyline Disconti nued 100 MG PO Daily April 06, 2023 5:24pm May 11, 2023 11:50am take 2 capsules by m outh every twenty-four hours take 1 capsule by mo uth every twenty-four hours Nortriptyline HCl 75 MG 1 capsule Orally Once a day Active take 2 capsules by m outh every twenty-four hours omeprazole 20 mg delayed release oral capsule (20 sources) Proton Pump Inhibitor Start: 12-17-2020 End: 04-06-2023 take 20 mg by mouth once daily at bedtime Omeprazole Active 20 MG PO Daily at bedtime April 06, 2023 5:23pm take 1 tablet by mouth at bedtim [...] June, Active pregabalin 75 mg oral capsule (14 sources) Start: 04-06-2023 take 75 mg by mouth twice daily Pregabalin Active 75 MG PO Twice daily April 06, 2023 1:00am take 1 capsule by mo [facility] every twelve hours Pregabalin 75 MG 1 capsule Orally Twice a day Active Semaglutide (Ozempic) 2 mg/dose (8 mg/3 mL) pen injector (2 sources) Start: 04-06-2023 inject 2 mg by subcutaneous injection every week Semaglutide (Ozempic) 2 mg/dose (8 mg/3 mL) pen injector Active 2 MG SUBCUT every week April 06, 2023 1:00am Start: 04-06-2023 inject 2 mg by subcu taneous injection every week Semaglutide (Ozempic) 2 mg/dose (8 mg/3 mL) pen injector Active 2 MG SUBCUT every week April 06, 2023 12:00am tiZANidine 4 mg oral tablet (14 sources) Central alpha-2 Adrenergic Agonist Start: 04-06-2023 take 4 mg by mouth three times daily Tizanidine Active 4 MG PO Three times daily April 06, 2023 1:00am take 1 tablet by mouth every eig ht hours tiZANidine HCl 4 MG 1 tablet [...] 2021 11:17pm take 1 tablet by mickey every six hours HYDROcodone-Acetaminophen 5-325 MG 1 tab let as needed Orally every 6 hrs Not-Taking/PRN take 1 tablet by mickey th every six hours Taloga Active take 1 tablet by mickey th twice daily as needed Taloga 5-325 MG 1 tablet as needed Orally bid Active amLODIPine 10 mg oral tablet (20 sources) Dihydropyridine Calcium Channel Karrie Start: 12-17-2020 End: 04-06-2023 take 10 mg by mouth once daily Amlodipine Discontinued 10 MG PO Daily December 17, 2020 12:00am April 06, 2023 5:31pm baclofen 10 mg oral tablet (20 sources) gamma-Aminobutyric Acid-ergic Agonist Start: 12-17-2020 End: 10-30-2022 take 10 mg by mouth once daily at bedtime Baclofen Discontinued 10 MG PO Daily at bedtime December 17, 2020 12:00am October 30, 2022 9:54am take 1 tablet by mickey th every twelve hours Baclofen 10 MG 1 tablet with food or mil k Orally Twice a day for 30 day(s) Not-Taking/PRN empagliflozin 25 mg oral tablet (20 sources) Sodium-Glucose Cotransporter 2 Inhibitor Start: 04-06-2023 take 25 mg by mouth once daily Empagliflozin Active 25 MG PO Daily April 06, 2023 12:00am Start: 08-01-2022 take 1 tablet by mickey th every twenty-four hours Start: 12-17-2020 End: 04-06-2023 take 1 tablet by mouth once daily Empagliflozin (Jardi ance) 10 mg tablet Discontinued 20 MG PO Daily December 17, 2020 12:00am April 06, 2023 5:13pm furosemide 20 mg oral tablet (20 sources) [...] to 70 u per day Sep, Active 3 ml insulin glargine 100 unt/ml pen injector (20 sources) Insulin Analog Start: 04-06-2023 Insulin Glargi ne (Basaglar Kwikpen U-100 Insulin) 100 unit/mL (3 mL) insulin pen Active 0 SUBCUT Daily at bedtime April 06, 2023 4:20pm 60 units subcutaneously daily at bedtime; can titrate up to 70 units Start: 12-17-2020 End: 04-06-2023 Insulin Glargine (Basaglar Kwikpen U-100 Insulin) 100 unit/mL (3 mL) insulin pen Discontinued 55 UNIT SUBCUT Daily at bedtime December 17, 2020 12:00am April 06, 2023 5:32pm inject 60 [IU] by desai bcutaneous injection once daily as needed, then inject 70 [IU] by subcutaneous injection once daily as needed Basaglar KwikPen 100 UNIT/ML 60 units daily but could titrate up to 70 units if necessary. Subcutaneous Daily for 30 days Not-Taking/PRN Basaglar KwikPen 100 UNIT/ML 68 units and follow sliding scale. Max 74 units a day. Subcutaneous Daily Active lidocaine 0.05 mg/mg medicated patch (12 sources) Antiarrhythmic, Amide Local Anesthetic Start: 08-12-2022 Lidocaine 5 % 1 patc h remove after 12 hours Externally Once a day for 30 days Jul, Not-Taking/PRN Start: 08-12-2022 lisinopril 30 mg oral tablet (20 sources) Angiotensin Converting Enzyme Inhibitor Start: 12-17-2020 End: 04-06-2023 take 30 mg by mouth once daily Lisinopril Discontinued 30 MG PO Daily December 17, 2020 12:00am April 06, 2023 5:25pm take 1 tablet by mickey th every twenty-four hours Lisinopril 40 mg 1 tab(s) Orally Once a day Not-Taking/PRN ozempic (2 mg/dose) 8 mg/3ml solution pen-injector [...] Active propranolol hydrochloride 10 mg oral tablet (7 sources) beta-Adrenergic Karrie Start: 12-17-2020 End: 12-17-2020 Propranolol Discontinued MG TABLET December 17, 2020 12:00am December 17, 2020 11:44am Semaglutide (7 sources) Start: 12-17-2020 End: 04-06-2023 inject 1 mg by subcutaneous injection every week Semaglutide (Ozempic) 1 mg/dose (4 mg/3 mL) pen injector Discontinued 1 MG SUBCUT every week December 17, 2020 12:00am April 06, 2023 5:12pm Start: 12-17-2020 End: 04-06-2023 inject 1 mg by subcutaneous injection every week Semaglutide (Ozempic) 1 mg/dose (4 mg/3 mL) pen injector Discontinued 1 MG SUBCUT every week December 16, 2020 11:00pm April 06, 2023 4:12pm Start: 12-17-2020 inject 1 mg by subcu taneous injection every week Semaglutide (Ozempic) 1 mg/dose (4 mg/3 mL) pen injector Active 1 MG SUBCUT every week December 16, 2020 11:00pm Start: 12-17-2020 inject 1 mg by subcu taneous injection every week Semaglutide (Ozempic) 1 mg/dose (4 mg/3 mL) pen injector Active 1 MG SUBCUT every week December 17, 2020 12:00am [facility] - (12 sources) [...] unspecified] Onset: 07-04-2021 Resolved: 10-28-2021 Chronic Osteoarthritis (17 sources) Unilateral primary osteoarthritis, right knee; 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: [Osteoarthritis of left knee joint] Onset: 09-08-2016 01-03-2021 Chronic Osteoporosis (14 sources) Senile osteoporosis; 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: [Age-related osteoporosis without current pathological fracture] Chronic Other aftercare (4 sources) Aftercare following joint replacement surgery; 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: [AFTERCARE FOLLOWING JOINT REPLACEMENT SURGERY] Onset: 09-25-2016 Chronic Other aftercare (20 sources) Long-term current use of insulin; 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: [MCFP (current) use of insulin] Episodic Other aftercare (10 sources) MCFP (current) use of insulin; 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] Onset: 11-21-2020 Resolved: 10-28-2021 Episodic Other connective tissue disease (1 source) Presence of right artificial knee joint; 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: [PRESENCE OF RIGHT ARTIFICIAL KNEE JOINT] Onset: 09-20-2016 Chronic Other connective tissue disease (7 sources) History of total knee arthroplasty; 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: [...] 09-08-2016 Resolved: 11-21-2020 Chronic Unclassified (1 source) MCFP (current) use of oral hypoglycemic drugs; 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: [INTERMEDIATE (CURRENT) USE OF ORAL HYPOGLYCEMIC DRUGS] Onset: [...] Test Name Value Interpretation Reference Range Facility Laboratory - Chemistry and C hemistry - challengeon 04-22-2023 Albumin [Mass/Vol] 4.0 g/dL [facility] ALP [Catalytic activity/Vol] 104 U/L [facility] ALT [Catalytic activity/Vol] 19 U/L [facility] AST [Catalytic activity/Vol] 17 U/L [facility] Bilirubin [Mass/Vol] 0.2 mg/dL [facility] Calcium [Mass/Vol] 9.8 mg/dL [facility] Chloride [Moles/Vol] 101 mmol/L [facility] CO2 [Moles/Vol] 28 mmol/L [facility] Creatinine [Mass/Vol] 0.75 mg/dL [facility] Glucose [Mass/Vol] 228 mg/dL [facility] Potassium [Moles/Vol] 5.0 mmol/L [facility] Protein [Mass/Vol] 6.8 g/dL [facility] Sodium [Moles/Vol] 137 mmol/L [facility] Urea nitrogen [Mass/Vol] 21 mg/dL [facility] Laboratory - Hematology and Cell countson 04-22-2023 HbA1c (Bld) [Mass fraction] 8.9 % [facility] No Panel Informationon 04-21 Estimated GFR (Non- 89 mL/min [facility] No Panel Informationon 04-07 Bedside Glucose 182 [facility] A1C HEMOGLOBINon 02-03-2023 HbA1c (Bld) [Mass fraction] 9.7 % [employer] Other Glucose - FINGER STICKon Glucose [Mass/Vol] 178 mg/dL [employer] Other HbA1c (Bld) [Mass fraction]o n 02-03-2023 A1C HEMOGLOBIN [facility] [employer] Other Glucose - FINGER STICKon Glucose [Mass/Vol] 180 mg/dL [employer] Other CT lumbar spine w conon 10-17 CT lumbar spine w con [facility] [place] [address] [place] [address] CT Scan Report Signed Patient: Lesli Clay MR#: [id number] : 1960 Acct:[id number] Age/Sex: 62 / F ADM Date: 10/30/22 Loc: XD Room: Type: [facility] Attending Dr: Martine SANZ Copies [...] Mindy Tomas M.D.10/30/2022 4:11 PM Dictation Location: [place] [address] Transcribed By: [facility] 10/30/22 1611 Dictated By: Mindy Tomas II, MD 10/30/22 1602 Signed By: 10/30/22 1611 [facility] IR myelogram spine lumbosacr aby 10-30-2022 IR myelogram spine lumbosacral [facility] [address] Interventional Radiology Rpt Signed Patient: Lesli Clay MR#: [id number] : 1960 Acct:[id number] Age/Sex: 62 / F ADM Date: 10/30/22 Loc: XD Room: Type: [facility] Attending Dr: Martine SANZ Copies [...] Mindy Tomas M.D.10/30/2022 3:59 PM Dictation Location: [place] [address] Transcribed By: [facility] 10/30/22 1558 Dictated By: Mindy Tomas II, MD 10/30/22 1552 Signed By: 10/30/22 0145 [facility] A1C HEMOGLOBINon 10-03-2022 HbA1c (Bld) [Mass fraction] 8.3 % [employer] Other Glucose - [facility] Glucose [Mass/Vol] 211 mg/dL [employer] Other HbA1c (Bld) [Mass fraction]o n 10-03-2022 A1C HEMOGLOBIN [employer] Other Creatinine (Bld) [Mass/Vol]O rdered By: Martine Tobias on 09-19-2022 Creatinine [Mass/Vol] 0.7 mg/dL 0.6-1.3 [facility] Comment on above: ER/ESD physician is notified/shown all ISTAT results.Critical values may be confirmed by laboratory testing ifdeemed necessary by ER attending doctor. MR lumbar spine wo conon MR lumbar spine wo con [facility] [place] [address] [place] [address] MRI Report Signed Patient: Lesli Clay MR#: [id number] : 1960 Acct:[id number] Age/Sex: 62 / F ADM Date: 09/19/22 Loc: MR Room: Type: [facility] Attending Dr: Martine SANZ Copies [...] Mindy Tomas M.D.09/19/2022 4:07 PM Dictation Location: [place] [address] Transcribed By: [facility] 09/19/22 1607 Dictated By: Mindy Tomas II, MD 09/19/22 1600 Signed By: 09/19/22 1607 [facility] XR lumbar spine 6V w bending on 08-18-2022 XR lumbar spine 6V w bending [facility] [place] [address] [place] [address] XRay Report Signed Patient: Lesli Clay MR#: [id number] : 1960 Acct:[id number] Age/Sex: 62 / F ADM Date: 08/18/22 Loc: XD Room: Type: [facility] Attending Dr: Martine SANZ Copies [...] PROCESS. Impression dictated by: Noman Dodson Jr., D.Javad08/18/2022 12:31 PM Dictation Location: [place] [address] Transcribed By: [facility] 08/18/22 1231 Dictated By: Noman Dodson Jr, DO 08/18/22 1230 Signed By: 08/18/22 1231 [facility] A1C HEMOGLOBINon 06-06-2022 HbA1c (Bld) [Mass fraction] 8.0 % [employer] Other Glucose - [facility]ING[facility]ICKon Glucose [Mass/Vol] 156 mg/dL [employer] Other HbA1c (Bld) [Mass fraction]o n 06-06-2022 A1C HEMOGLOBIN [facility] [employer] Other POINT OF CARE GLUCOSEon 05-17 Glucose [Mass/Vol] 185 mg/dL Critically high 74-106 [facility] Comment on above: Performed By: #### P OCGLUC #### [facility] [address] [place] [address] Dr. Keegan Neal A1C HEMOGLOBINon 03-06-2022 HbA1c (Bld) [Mass fraction] 7.8 % [facility] [employer] Other CREATININEon 03-06-2022 Creatinine [Mass/Vol] 0.82 mg/dL Normal 0.55-1.02 [facility] Comment on above: Performed By: #### C EJ #### [facility] [address] [place] [address] [address] Keegan Neal EGFR-AF CYMRO >60 Normal >=60 [facility] Comment on above: Performed By: #### C EJ #### [facility] [address] [place], [place] [address] Dr. Keegan Neal EGFR-NON AF CYMRO >60 Normal >=60 [facility] Comment on above: Performed By: #### C EJ #### [facility] [address] [place], [place] [address] LSPINE WO W [...] by: BLANE THOMAS Date: 2022-03-06 11:22 Normal [facility] Glucose - FINGER STICKon Glucose [Mass/Vol] 200 mg/dL [employer] Other HbA1c (Bld) [Mass fraction]o n 03-06-2022 A1C HEMOGLOBIN [employer] Other A1C HEMOGLOBINon 10-28-2021 HbA1c (Bld) [Mass fraction] 7.0 % [employer] Other Glucose - [facility]ING[facility]on Glucose [Mass/Vol] 110 mg/dL [employer] Other HbA1c (Bld) [Mass fraction]o n 10-28-2021 A1C HEMOGLOBIN [employer] Other A1C HEMOGLOBINon 07-04-2021 HbA1c (Bld) [Mass fraction] 6.6 % [employer] Other Glucose - FINGER STICKon Glucose [Mass/Vol] 110 mg/dL [employer] Other HbA1c (Bld) [Mass fraction]o n 07-04-2021 A1C HEMOGLOBIN [employer] Other A1C HEMOGLOBINon 11-21-2020 HbA1c (Bld) [Mass fraction] 6.0 % [employer] Other Glucose - FINGER STICKon Glucose [Mass/Vol] 98 mg/dL [employer] Other HbA1c (Bld) [Mass fraction]o n 11-21-2020 A1C HEMOGLOBIN [employer] Other Discharge Summaryon 09-26-19 Discharge Summary MR#: [id number] Name: Lesli Clay Admitted: 09/08/2016 Discharged: [...] 09/24/2016/02:52 P/Que Cano M.D.Date Trans: 09/25/2016 08:08 A/Nigel_JN:[id number] cc: Rosales Taylor M.D. [address] [facility] [address] [facility] KNEE RIGHT 3 [facility] 7 KNEE RIGHT 3 [facility] [place] [address] P atient Name: LESLI CLAY : 1Sex: FAge: Race: WhiteMRN: [id number]. Location: 84Patient Status: Date: 09/25/2016 8:15:00 AMCompleted Date: 09/25/2016 08:22 AMRequesting Provider: QUE BLAKE Attending Provider: Report Copy To: Signs & Symptoms: Z96.651 Presence of right artificial knee joint [id number]: AthenaComments: , , , Ordering Provider - QUE BLAKE MD , Exam: KNEE RIGHT 3 VWSAccession #: [id number] ======KNEE RIGHT 3 VWS 09/25/2016 8:22 AM [...] changes. Electronically signed by:Mindy Tomas. Transcribed by: [email or web address], User Resident: Electronically Signed by: MINDY TOMAS @ 09/25/2016 04:44 PM Normal [facility] Comment on above: Order Comment: , , = ========= , Ordering Provider - QUE BLAKE MD , Consultationon 09-21-2016 Consultation MR#: [id number] Name: Lesli Clay Date of [...] September 23, 2016, with Dr. Blake. In [facility], she was placed in a hinged knee brace to prevent flexion of theknee. She was given renewal of Keflex. We prescribed Taloga for pain controland we applied an Armando wrap for edema control.Reviewed By:Desmond Mena MD 09/22/2016 08:26 AElectronically Signed by:Martin Fonseca MD 09/25/2016 03:22 P ___Martin Fonseca MD I was not present but assume all responsibility for the exam. NOTBILLABLEDate Dict: 09/21/2016/10:51 A/Desmond Mena RMjessica Trans: 09/21/2016 11:52 A/mmoDN_JN:[id number] cc: Rosales Taylor M.D. [address] [facility] [address] Normal [facility] BASIC METABOLIC PANELon 08-0 Calcium 9.6 mg/dL Normal 8.6-10.3 [facility] Comment on above: Performed By: #### 0 0071 ####[facility] [place] [address], [facility] Chloride 99 mmol/L Normal 98-107 [facility] Comment on above: Performed By: #### 0 0071 ####[facility] [place] [address], [place] CO2 29 mmol/L Normal 21-31 [facility] Comment on above: Performed By: #### 0 0071 ####[facility] [place] [address], [place] Creatinine 0.91 mg/dL Normal 0.60-1.20 [facility] Comment on above: Performed By: #### 0 0071 ####[facility] [place] [address], [place] eGFR (black) mL/min/{1.73_m2} Normal >60 [facility] Comment on above: Performed By: #### 0 0071 ####[facility] [place] [address], [place] eGFR (non-black) mL/min/{1.73_m2} Normal >60 [facility] Comment on above: Performed By: #### 0 0071 ####[facility] [place] [address], [place] Glucose mass conc 151 mg/dL High 70-100 [facility] Comment on above: Performed By: #### 0 0071 ####[facility] Potassium molar conc 4.0 mmol/L Normal 3.5-5.1 [facility] Comment on above: Performed By: #### 0 0071 ####[facility] Sodium 137 mmol/L Normal 136-145 [facility] Comment on above: Performed By: #### 0 0071 ####[facility] Urea nitrogen 13 mg/dL Normal 7-25 [facility] Comment on above: Performed By: #### 0 0071 ####[place] [id number] [address] C REACTIVE PROTEINon 017 C reactive protein (CRP) 28.5 mg/L High 0.0-7.0 [facility] Comment on above: Performed By: #### 0 0071 ####[place] [address] CBC W/DIFFon 09-20-2016 Basophils Auto #/vol (Bld) 0.5 % Normal 0.0-2.0 [facility] Comment on above: Performed By: #### 0 0071 ####[place] [address] [address] Eosinophils/100 leukocytes 2.1 % Normal 0.0-5.0 [facility] Comment on above: Performed By: #### 0 0071 ####[facility] Erythrocyte distribution width Auto Ratio (RBC) 17.1 % High 11.5-16.9 [facility] Comment on above: Performed By: #### 0 0071 ####[facility] [place] [address], [facility] Erythrocytes (RBC) 3.39 mill/mm3 Low 3.50-5.50 [facility] Comment on above: Performed By: #### 0 0071 ####[facility] [place] [address], [facility] Hematocrit (HCT) 31.4 % Low 36.0-48.0 [facility] Comment on above: Performed By: #### 0 0071 ####[facility] Hemoglobin mass conc (Bld) 10.3 g/dL Low 12.0-15.0 [facility] Comment on above: Performed By: #### 0 0071 ####[place] [address] [place] [address], [facility] Lymphocytes/100 leukocytes 19.8 % Low 20.0-40.0 [facility] Comment on above: Performed By: #### 0 0071 ####[facility] MCH 30.3 pg Normal 24.0-32.0 [facility] Comment on above: Performed By: #### 0 0071 ####[facility] MCHC mass conc (RBC) 32.7 g/dL Normal 32.0-36.0 [facility] Comment on above: Performed By: #### 0 0071 ####[facility] MCV 92.6 fL Normal 80.0-100.0 [facility] Comment on above: Performed By: #### 0 0071 ####[facility] [place] [address], [facility] METHOD Normal [facility] Comment on above: Result Comment: Auto mated differential performedNormal RBC Morphology Performed By: #### 0 0071 ####[facility] [place] [address], [facility] MONOS 5.8 % Normal 2-8 [facility] Comment on above: Performed By: #### 0 0071 ####[facility] [facility].[address] Neutrophils/100 leukocytes 71.8 % High 50-70 [facility] Comment on above: Performed By: #### 0 0071 ####[facility] PLAT CNT 400 Thou/mm3 Normal 100-400 [facility] Comment on above: Performed By: #### 0 0071 ####[facility] WBC (Leukocytes) 10.6 Thou/mm3 High 4.0-10.0 [facility] Comment on above: Performed By: #### 0 0071 ####[facility] SEDIMENTATION RATEon 017 SED RATE 107 mm/hr High 0-20 [facility] Comment on above: Performed By: #### 0 0071 ####[facility] POC GLUCOSE LABon 09-15-2016 Glucose mass conc 187 mg/dL High 70-100 [facility] Comment on above: Performed By: #### 0 0071 ####[facility] Glucose mass conc 153 mg/dL High 70-100 [facility] Comment on above: Performed By: #### 5 6101, 14460 ####[facility] [place] [address], [place] POC GLUCOSE LABon 09-14-2016 Glucose mass conc 198 mg/dL High 70-100 [facility] Comment on above: Performed By: #### 5 610, 16025 ####[facility] [place] [address], [place] Glucose mass conc 188 mg/dL High 70-100 [facility] Comment on above: Performed By: #### 5 6100, 00045 ####[facility] [place] [address], [place] Glucose mass conc 192 mg/dL High 70-100 [facility] Comment on above: Performed By: #### 5 610, 10251 ####[facility] [place] [address], [place] Glucose mass conc 155 mg/dL High 70-100 [facility] Comment on above: Performed By: #### 5 6100, 74981 ####[facility] [place] [address], [place] POC GLUCOSE LABon 09-13-2016 Glucose mass conc 223 mg/dL High 70-100 [facility] Comment on above: Performed By: #### 5 6100, 06547 ####[facility] [place] [address], [place] Glucose mass conc 212 mg/dL High 70-100 [facility] Comment on above: Performed By: #### 5 610, 71848 ####[facility] [place] [address], [place] Glucose mass conc 111 mg/dL High 70-100 [facility] Comment on above: Performed By: #### 5 610, 42434 ####[facility] [place] [address], [place] Glucose mass conc 199 mg/dL High 70-100 [facility] Comment on above: Performed By: #### 5 610, 83128 ####[facility] [place] [address], [place] Glucose mass conc 149 mg/dL High 70-100 [facility] Comment on above: Performed By: #### 5 610, 36322 ####[facility] [place] [address], [place] POC GLUCOSE LABon 09-12-2016 Glucose mass conc 205 mg/dL High 70-100 [facility] Comment on above: Performed By: #### 5 610, 03791 ####[facility] [place] [address], [place] Glucose mass conc 132 mg/dL High 70-100 [facility] Comment on above: Performed By: #### 5 6100, 92002 ####[facility] [place] [address], [place] Glucose mass conc 184 mg/dL High 70-100 [facility] Comment on above: Performed By: #### 5 6100, 25887 ####[facility] [place] [address], [place] Glucose mass conc 158 mg/dL High 70-100 [facility] Comment on above: Performed By: #### 5 610, 05943 ####[facility] [place] [address], [place] POC GLUCOSE LABon 09-11-2016 Glucose mass conc 194 mg/dL High 70-100 [facility] Comment on above: Performed By: #### 5 610, 98121 ####[facility] [place] [address], [place] Glucose mass conc 192 mg/dL High 70-100 [facility] Comment on above: Performed By: #### 5 6101, 09978 ####[facility] [place] [address], [facility] Glucose mass conc 221 mg/dL High 70-100 [facility] Comment on above: Performed By: #### 5 610, 82307 ####[facility] [place] [address], [facility] Glucose mass conc 147 mg/dL High 70-100 [facility] Comment on above: Performed By: #### 5 610, 81115 ####[facility] [place] [address], [facility] POC GLUCOSE LABon 09-10-2016 Glucose mass conc 224 mg/dL High 70-100 [facility] Comment on above: Performed By: #### 5 610, 00722 ####[facility] [place] [address], [facility] Glucose mass conc 156 mg/dL High 70-100 [facility] Comment on above: Performed By: #### 1 0008 ####[facility] [place] [address], [facility] Glucose mass conc 240 mg/dL High 70-100 [facility] Comment on above: Performed By: #### 1 0008 ####[facility] [place] [address], [facility] Glucose mass conc 171 mg/dL High 70-100 [facility] Comment on above: Performed By: #### 1 0008 ####[facility] [place] [address], [facility] BASIC METABOLIC PANELon 08-17 Calcium 8.4 mg/dL Low 8.6-10.3 [facility] Comment on above: Order Comment: No: D o not add to previous draw Performed By: #### 1 0008 ####[facility] [place] [address], [facility] Chloride 99 mmol/L Normal 98-107 [facility] Comment on above: Order Comment: No: D o not add to previous draw Performed By: #### 1 0008 ####[facility] [place] [address], [place] CO2 27 mmol/L Normal 21-31 [facility] Comment on above: Order Comment: No: D o not add to previous draw Performed By: #### 1 0008 ####[facility] [place] [address], [facility] Creatinine 1.11 mg/dL Normal 0.60-1.20 [facility] Comment on above: Order Comment: No: D o not add to previous draw Performed By: #### 1 0008 ####[facility] [place] [address], [facility] eGFR (black) mL/min/{1.73_m2} Normal >60 [facility] Comment on above: Order Comment: No: D o not add to previous draw Performed By: #### 1 0008 ####[facility] [place] [address], [facility] eGFR (non-black) 51 ml/min/1.73sq m Abnormal >60 [facility] Comment on above: Order Comment: No: D o not add to previous draw Performed By: #### 1 0008 ####[facility] [place] [address], [place] Glucose mass conc 161 mg/dL High 70-100 [facility] Comment on above: Order Comment: No: D o not add to previous draw Performed By: #### 1 0008 ####[facility] [place] [address], [place] Potassium molar conc 4.2 mmol/L Normal 3.5-5.1 [facility] Comment on above: Order Comment: No: D o not add to previous draw Performed By: #### 1 0008 ####[facility] Sodium 134 mmol/L Low 136-145 [facility] Comment on above: Order Comment: No: D o not add to previous draw Performed By: #### 1 0008 ####[facility] Urea nitrogen 24 mg/dL Normal 7-25 [facility] Comment on above: Order Comment: No: D o not add to previous draw Performed By: #### 1 0008 ####[facility] CBC W/DIFFon 09-09-2016 Basophils Auto #/vol (Bld) 0.2 % Normal 0.0-2.0 [facility] Comment on above: Order Comment: No: D o not add to previous draw Performed By: #### 1 0008 ####[place] [address] Eosinophils/100 leukocytes 1.0 % Normal 0.0-5.0 [facility] Comment on above: Order Comment: No: D o not add to previous draw Performed By: #### 1 0008 ####[facility] Erythrocyte distribution width Auto Ratio (RBC) 16.9 % Normal 11.5-16.9 [facility] Comment on above: Order Comment: No: D o not add to previous draw Performed By: #### 1 0008 ####[address] Erythrocytes (RBC) 3.31 mill/mm3 Low 3.50-5.50 [facility] Comment on above: Order Comment: No: D o not add to previous draw Performed By: #### 1 0008 ####[facility] [facility].[address] Hematocrit (HCT) 30.7 % Low 36.0-48.0 [facility] Comment on above: Order Comment: No: D o not add to previous draw Performed By: #### 1 0008 ####[facility] [facility].[address] Hemoglobin mass conc (Bld) 10.0 g/dL Low 12.0-15.0 [facility] Comment on above: Order Comment: No: D o not add to previous draw Performed By: #### 1 0008 ####[address] Lymphocytes/100 leukocytes 25.6 % Normal 20.0-40.0 [facility] Comment on above: Order Comment: No: D o not add to previous draw Performed By: #### 1 0008 ####[place] [address] [facility].[address] MCH 30.3 pg Normal 24.0-32.0 [facility] Comment on above: Order Comment: No: D o not add to previous draw Performed By: #### 1 0008 ####[address] MCHC mass conc (RBC) 32.7 g/dL Normal 32.0-36.0 [facility] Comment on above: Order Comment: No: D o not add to previous draw Performed By: #### 1 0008 ####[address] MCV 92.7 fL Normal 80.0-100.0 [facility] Comment on above: Order Comment: No: D o not add to previous draw Performed By: #### 1 0008 ####[address] [id number], [place] METHOD Normal [facility] Comment on above: Order Comment: No: D o not add to previous draw Result Comment: Auto mated differential performedNormal RBC Morphology Performed By: #### 1 0008 ####[facility] [place] [address], [place] MONOS 6.9 % Normal 2-8 [facility] Comment on above: Order Comment: No: D o not add to previous draw Performed By: #### 1 0008 ####[facility] [place] [address], [place] Neutrophils/100 leukocytes 66.3 % Normal 50-70 [facility] Comment on above: Order Comment: No: D o not add to previous draw Performed By: #### 1 0008 ####[facility] [place] [address], [place] PLAT CNT 304 Thou/mm3 Normal 100-400 [facility] Comment on above: Order Comment: No: D o not add to previous draw Performed By: #### 1 0008 ####[place] [address] [place] [address], [facility] WBC (Leukocytes) 8.7 Thou/mm3 Normal 4.0-10.0 [facility] Comment on above: Order Comment: No: D o not add to previous draw Performed By: #### 1 0008 ####[facility] [place] [address], [facility] Operative Reporton 7 Operative Report MR#: [id number] Room #: [id number] Discharge Date: Birthdate: 1960 OPERATIVE REPORTDATE OF [...] 09/08/2016/08:19 P/Que Cano M.D.Date Trans: 09/09/2016 04:17 A/Nigel_JN:[id number] cc: Rosales Taylor M.D. [address] [facility] [address] Normal [facility] POC GLUCOSE LABon 09-09-2016 Glucose mass conc 229 mg/dL High 70-100 [facility] Comment on above: Performed By: #### 1 0008 ####[facility] [place] [address], [facility] Glucose mass conc 159 mg/dL High 70-100 [facility] Comment on above: Performed By: #### 1 0008 ####[facility] [place] [address], [facility] Glucose mass conc 182 mg/dL High 70-100 [facility] Comment on above: Performed By: #### 1 0008 ####[facility] [facility] [place] [address], [facility] Glucose mass conc 159 mg/dL High 70-100 [facility] Comment on above: Performed By: #### 1 0008 ####[address] [place] [address], [facility] Glucose mass conc 172 mg/dL High 70-100 [facility] Comment on above: Performed By: #### 1 0008 ####[place] [address] [place] [address], [facility] POC GLUCOSE LABon 09-08-2016 Glucose mass conc 175 mg/dL High 70-100 [facility] Comment on above: Performed By: #### 8 5499 ####[address] [place] [address], [facility] Glucose mass conc 165 mg/dL High 70-100 [facility] Comment on above: Performed By: #### 8 5499 ####[place] [address] [place] [address], [facility] Glucose mass conc 173 mg/dL High 70-100 [facility] Comment on above: Performed By: #### 8 5499 ####[address] [address], [facility] PORTABLE KNEE RIGHT 2 VWSon 09-08-2016 PORTABLE KNEE RIGHT 2 [facility] [place] [id number] P atient Name: LESLI CLAY : 1Sex: FAge: Race: WhiteMRN: [id number]. Location: OUTPPatient Status: OVisit #: [id number] Date: 09/08/2016 2:05:00 PMCompleted Date: 09/08/2016 02:45 PMRequesting Provider: QUE CANO Attending Provider: QUE BLAKE Report Copy To: Signs & Symptoms: Pain ( specify Location)History: Patient history not availableComments: Hardware Evaluation, please do in PACUExam: PORTABLE KNEE RIGHT 2 VWSAccession #: [id number] ======PORTABLE KNEE RIGHT 2 VWS 09/08/2016 2:45 [...] arthroplasty Electronically signed by:Joan Cormier. Transcribed by: [email or web address], User Resident: Electronically Signed by: JOAN CORMIER @ 09/08/2016 02:48 PM Normal [facility] Comment on above: Order Comment: Hardw are Evaluation, please do in PACU APTTon 08-25-2016 aPTT 33.0 s Normal 25.0-35.0 [facility] Comment on above: Result Comment: ALL [...] THIS PURPOSE. Performed By: #### 5 6101, 20126 ####[place] [address] BASIC METABOLIC PANELon 07- Calcium 9.9 mg/dL Normal 8.6-10.3 [facility] Comment on above: Performed By: #### 0 0071 ####[facility] [place] [address], [facility] Chloride 96 mmol/L Low 98-107 [facility] Comment on above: Performed By: #### 0 0071 ####[facility] [place] [address], [facility] CO2 29 mmol/L Normal 21-31 [facility] Comment on above: Performed By: #### 0 0071 ####[facility] [place] [address], [facility] Creatinine 0.94 mg/dL Normal 0.60-1.20 [facility] Comment on above: Performed By: #### 0 0071 ####[facility] [facility] [place] [address], [facility] eGFR (black) mL/min/{1.73_m2} Normal >60 [facility] Comment on above: Performed By: #### 0 0071 ####[facility] [facility] [place] [address], [facility] eGFR (non-black) mL/min/{1.73_m2} Normal >60 [facility] Comment on above: Performed By: #### 0 0071 ####[facility] [facility] [place] [address], [facility] Glucose mass conc 128 mg/dL High 70-100 [facility] Comment on above: Performed By: #### 0 0071 ####[facility] [place] [address], [facility] Potassium molar conc 4.0 mmol/L Normal 3.5-5.1 [facility] Comment on above: Performed By: #### 0 0071 ####[facility] [facility].[address] Sodium 135 mmol/L Low 136-145 [facility] Comment on above: Performed By: #### 0 1 ####[facility] Urea nitrogen 15 mg/dL Normal 7-25 [facility] Comment on above: Performed By: #### 0 1 ####[facility] [facility].[address] CBC W/DIFFon 08-25-2016 Basophils Auto #/vol (Bld) 0.2 % Normal 0.0-2.0 [facility] Comment on above: Performed By: #### 102 ####[place] [address] [facility].[address] Eosinophils/100 leukocytes 1.6 % Normal 0.0-5.0 [facility] Comment on above: Performed By: #### 102 ####[facility] [facility].[address] Erythrocyte distribution width Auto Ratio (RBC) 16.9 % Normal 11.5-16.9 [facility] Comment on above: Performed By: #### 5 102 ####[facility] [facility].[address] Erythrocytes (RBC) 4.18 mill/mm3 Normal 3.50-5.50 [facility] Comment on above: Performed By: #### 5 102 ####[facility] [facility].[address] Hematocrit (HCT) 38.2 % Normal 36.0-48.0 [facility] Comment on above: Performed By: #### 102 ####[facility] Hemoglobin mass conc (Bld) 12.5 g/dL Normal 12.0-15.0 [facility] Comment on above: Performed By: #### 5 0103 ####[facility] [place] [address], [facility] Lymphocytes/100 leukocytes 21.4 % Normal 20.0-40.0 [facility] Comment on above: Performed By: #### 5 0103 ####[facility] [place] [address], [facility] MCH 29.9 pg Normal 24.0-32.0 [facility] Comment on above: Performed By: #### 5 0103 ####[facility] [facility].[address] [address] [facility] mass conc (RBC) 32.7 g/dL Normal 32.0-36.0 [facility] Comment on above: Performed By: #### 5 0103 ####[facility] [facility] [place] [address], [facility] MCV 91.4 fL Normal 80.0-100.0 [facility] Comment on above: Performed By: #### 5 0103 ####[facility] [place] [address], [facility] METHOD Normal [facility] Comment on above: Result Comment: Auto mated differential performedNormal RBC Morphology Performed By: #### 5 0103 ####[facility] [facility] [place] [address], [facility] MONOS 5.2 % Normal 2-8 [facility] Comment on above: Performed By: #### 5 0103 ####[facility] [place] [address], [facility] Neutrophils/100 leukocytes 71.6 % High 50-70 [facility] Comment on above: Performed By: #### 5 0103 ####[facility] [place] [address], [facility] PLAT CNT 351 Thou/mm3 Normal 100-400 [facility] Comment on above: Performed By: #### 5 0103 ####[facility] [place] [address], [facility] WBC (Leukocytes) 12.0 Thou/mm3 High 4.0-10.0 [facility] Comment on above: Performed By: #### 5 0103 ####[facility] [facility].[address] PROTHROMBIN TIMEon 7 INR Coag RelTime (PPP) 0.97 {INR} Normal 0.91-1.16 [facility] Comment on above: Result Comment: ACCC P RECOMMENDED INR FOR WARFARIN THERAPY CONDITION INRPROPHYLAXIS OF VENOUS THROMBOSIS 2-3(HIGH-RISK SURGERY)TREATMENT OF VENOUS THROMBOSIS 2-3TREATMENT OF PULMONARY EMBOLISM 2-3PREVENTION OF SYSTEMIC EMBOLISM: 2-3 ACUTE MYOCARDIAL INFARCTION TISSUE HEART VALVES VALVULAR HEART DISEASE ATRIAL FIBRILLATION RECURRENT SYSTEMIC EMBOLISMMECHANICAL HEART VALVE 2.5-3.5 FROM: ORAL ANTICOAGULANTS. MECHANISM OF ACTION, CLINICALEFFECTIVENESS, AND OPTIMAL THERAPEUTIC RANGE. [id number]. Performed By: #### 5 6101, [id number] ####[facility] [facility] [place] [address], [facility] Prothrombin time (PT) Coag time (PPP) 12.9 s Normal 12.3-14.8 [facility] Comment on above: Result Comment: ALL RESULTS MUST BE INTERPRETED WITH RESPECT TO BLOOD DRAWING ARTIFACTOR DILUTION ERROR OF ANTICOAGULANT AT THE TIME OF SAMPLING. Performed By: #### 5 6101, [id number] ####[facility] [place] [address], [facility] TYPE AND SCREENon 08-25-2016 ABO INTERPRETATION O Normal [facility] Comment on above: Performed By: #### 6 2586 ####[facility] [place] [address], [facility] ANTIBODY SCREEN Negative Normal [facility] Comment on above: Performed By: #### 6 2586 ####[facility] [place] [address], [facility] RH INTERPRETATION Positive Normal [facility] Comment on above: Performed By: #### 6 2586 ####[facility] [place] [address], [facility] URINALYSISon 08-25-2016 Bilirubin (total) Negative Normal NEGATIVE [facility] Comment on above: Performed By: #### 1 0008 ####[facility] [place] [address], [facility] BLOOD MODERATE Abnormal NEGATIVE [facility] Comment on above: Performed By: #### 1 0008 ####[facility] [place] [address], [facility] EPIS MOD Abnormal FEW [facility] Comment on above: Performed By: #### 1 0008 ####[facility] [place] [address], [facility] Erythrocytes (RBC) 3-5 Abnormal 0-0 [facility] Comment on above: Performed By: #### 1 0008 ####[facility] [place] [address], [facility] Glucose mass conc Negative Normal NEGATIVE [facility] Comment on above: Performed By: #### 1 0008 ####[facility] [place] [address], [facility] KETONE Negative Normal NEGATIVE [facility] Comment on above: Performed By: #### 1 0008 ####[facility] [place] [address], [facility] LEUK ZEYNEP TRACE Abnormal NEGATIVE [facility] Comment on above: Performed By: #### 1 0008 ####[facility] [place] [address], [facility] pH of blood 7.0 [pH] Normal 5.0-8.[address] [facility] Comment on above: Performed By: #### 1 0008 ####[facility] [place] [address], [facility] Protein Negative Normal NEGATIVE [facility] Comment on above: Performed By: #### 1 0008 ####[facility] [facility] [place] [address], [facility] SPEC GRAV 1.006 Low 1.015-1.[address] [facility] Comment on above: Performed By: #### 1 0008 ####[facility] [facility] [place] [address], [facility] Urine, appearance CLEAR Normal CLEAR [facility] Comment on above: Performed By: #### 1 0008 ####[facility] [place] [address], [place] Urine, bacteria in sediment MANY Abnormal NONE SEEN [facility] Comment on above: Performed By: #### 1 0008 ####[facility] [place] [address], [facility] Urine, color STRAW Abnormal YELLOW [facility] Comment on above: Performed By: #### 1 0008 ####[facility] [place] [address], [facility] Urine, nitrite presence Negative Normal NEGATIVE [facility] Comment on above: Performed By: #### 1 0008 ####[facility] [place] [address], [facility] WBC UA 11-20 Abnormal 0-0 [facility] Comment on above: Performed By: #### 1 0008 ####[facility] [facility], [place] [id number] [place] [address] Vital Signs Date Time Vital Sign Value Performing Clinician Facility 05-11-2023 11:54-0400 Body height 160.02 cm [facility] 05-11-2023 11:54-0400 Body mass index (BMI) [Ratio] 51.5 kg/m2 [facility] 05-11-2023 11:54-0400 Body weight 132.05 kg [facility] 05-11-2023 11:54-0400 Diastolic blood pressure 83 mm[Hg] [facility] 05-11-2023 11:54-0400 Heart rate 74 /min [facility] 05-11-2023 11:54-0400 Respiratory rate 20 /min [facility] 05-11-2023 11:54-0400 SaO2% (BldA) [Mass fraction] 98 % [facility] 05-11-2023 11:54-0400 Systolic blood pressure 139 mm[Hg] [facility] 04-07-2023 09:09-0500 Body height 160.02 cm DO Kalie Rumschlag Work Phone: [facility] 04-07-2023 09:09-0500 Body mass index (BMI) [Ratio] 52.6 kg/m2 DO Kalie Rumschlag Work Phone: [facility] 04-07-2023 09:09-0500 Body weight 134.83 kg DO Kalie Rumschlag Work Phone: [facility] 04-07-2023 09:09-0500 Diastolic blood pressure 82 mm[Hg] DO Kalie Rumschlag Work Phone: [facility] 04-07-2023 09:09-0500 Heart rate 80 /min DO Kalie Rumschlag Work Phone: [facility] 04-07-2023 09:09-0500 Respiratory rate 20 /min DO Kalie Rumschlag Work Phone: [facility] 04-07-2023 09:09-0500 SaO2% (BldA) [Mass fraction] 93 % DO Kalie Rumschlag Work Phone: [facility] 04-07-2023 09:09-0500 Systolic blood pressure 130 mm[Hg] DO Kalie Rumschlag Work Phone: [facility] 02-03-2023 08:45-0500 Body height 160.02 cm Lili Scally Other [facility] 02-03-2023 08:45-0500 Body mass index (BMI) [Ratio] 52.61 kg/m2 Lili Scally Other [facility] Other 02-03-2023 08:45-0500 Body weight 134.72 kg Lili Scally Other [facility] Other 02-03-2023 08:45-0500 Body weight 134.71 kg DO Kalie Rumschlag Work Phone: [facility] 02-03-2023 08:45-0500 Diastolic blood pressure Lili Scally Other [facility] Other 02-03-2023 08:45-0500 Respiratory rate 20 /min Lili Scally Other [facility] Other 02-03-2023 08:45-0500 SaO2% (BldA) [Mass fraction] 94 % Lili Scally Other [facility] Other 02-03-2023 08:45-0500 Systolic blood pressure 144 mm[Hg] Lili Scally Other [facility] Other 11-26-2022 09:45-0400 Body height 160.02 cm Lili Scally Other [facility] Other 11-26-2022 09:45-0400 Body mass index (BMI) [Ratio] 51.37 kg/m2 Lili Scally Other [facility] Other 11-26-2022 09:45-0400 Body weight 131.54 kg Lili Scally Other [facility] Other 11-26-2022 09:45-0400 Diastolic blood pressure Lili Scally Other [facility] Other 11-26-2022 09:45-0400 Respiratory rate 20 /min Lili Scally Other [facility] Other 11-26-2022 09:45-0400 SaO2% (BldA) [Mass fraction] 96 % Lili Scally Other [facility] Other 11-26-2022 09:45-0400 Systolic blood pressure 124 mm[Hg] Lili Scally Other [facility] Other 11-25-2022 09:20-0400 Body height 160.02 cm Stoney Turner Other [facility] Other 11-25-2022 09:20-0400 Body mass index (BMI) [Ratio] 52.07 kg/m2 Stoney Turner Other [facility] Other 11-25-2022 09:20-0400 Body weight 133.36 kg Stoney Yue Other [facility] Other 10-30-2022 11:18-0400 Diastolic blood pressure 81 mm[Hg] DO Judith Amanda Work Phone: [facility] 10-30-2022 11:18-0400 Heart rate 94 /min DO Judith Amanda Work Phone: [facility] 10-30-2022 11:18-0400 Respiratory rate 18 /min DO Judith Amanda Work Phone: [facility] 10-30-2022 11:18-0400 SaO2% (BldA) [Mass fraction] 96 % DO Judith Amanda Work Phone: [facility] 10-30-2022 11:18-0400 Systolic blood pressure 159 mm[Hg] DO Judith Amanda Work Phone: [facility] 10-30-2022 09:52-0400 Body height 160.02 cm DO Judith Amanda Work Phone: [facility] 10-30-2022 09:52-0400 Body weight 126.55 kg DO Judith Amanda Work Phone: [facility] 10-09-2022 10:40-0400 Body height 160.02 cm Martine Tobias Other [facility] Other 10-09-2022 10:40-0400 Body mass index (BMI) [Ratio] 52.07 kg/m2 Martine Tobias Other [facility] Other 10-09-2022 10:40-0400 Body weight 133.36 kg Martine Tobias Other [facility] Other 10-09-2022 10:40-0400 Diastolic blood pressure 88 mm[Hg] Martine Tobias Other [facility] Other 10-09-2022 10:40-0400 Systolic blood pressure 154 mm[Hg] Martine Tobias Other [facility] Other 10-03-2022 09:15-0400 Body height 160.02 cm Lili Scally Other [facility] Other 10-03-2022 09:15-0400 Body mass index (BMI) [Ratio] 52.09 kg/m2 Lili Scally Other [facility] Other 10-03-2022 09:15-0400 Body weight 133.4 kg Lili Scally Other [facility] Other 10-03-2022 09:15-0400 Diastolic blood pressure 88 mm[Hg] Lili Scally Other [facility] Other 10-03-2022 09:15-0400 Respiratory rate 20 /min Lili Scally Other [facility] Other 10-03-2022 09:15-0400 SaO2% (BldA) [Mass fraction] 65 % Lili Scally Other [facility] Other 10-03-2022 09:15-0400 Systolic blood pressure 143 mm[Hg] Lili Scally Other [facility] Other 09-19-2022 13:49-0400 Diastolic blood pressure 109 mm[Hg] DO Kalie Rumschlag Work Phone: [facility] 09-19-2022 13:49-0400 Heart rate 94 /min DO Kalie Rumschlag Work Phone: [facility] 09-19-2022 13:49-0400 Respiratory rate 20 /min DO Kalie Rumschlag Work Phone: [facility] 09-19-2022 13:49-0400 SaO2% (BldA) [Mass fraction] 96 % DO Kalie Rumschlag Work Phone: [facility] 09-19-2022 13:49-0400 Systolic blood pressure 209 mm[Hg] DO Kalie Rumschlag Work Phone: [facility] 09-19-2022 13:42-0400 Body height 162.56 cm DO Kalie Rumschlag Work Phone: [facility] 09-19-2022 13:42-0400 Body weight 124.73 kg DO Kalie Rumschlag Work Phone: [facility] 08-12-2022 09:40-0400 Body height 160.02 cm Martine Tobias Other [facility] Other 08-12-2022 09:40-0400 Body mass index (BMI) [Ratio] 50.62 kg/m2 Martine Tobias Other [facility] Other 08-12-2022 09:40-0400 Body weight 129.64 kg Martine Tobias Other [facility] Other 08-12-2022 09:40-0400 Diastolic blood pressure 86 mm[Hg] Martine Tobias Other [facility] Other 08-12-2022 09:40-0400 Systolic blood pressure 150 mm[Hg] Martine Tobias Other [facility] Other 08-01-2022 09:15-0400 Body height 160.02 cm Lili Scally Other [facility] Other 08-01-2022 09:15-0400 Body mass index (BMI) [Ratio] 50.62 kg/m2 Lili Scally Other [facility] Other 08-01-2022 09:15-0400 Body weight 129.64 kg Lili Scally Other [facility] Other 08-01-2022 09:15-0400 Diastolic blood pressure 84 mm[Hg] Lili Scally Other [facility] Other 08-01-2022 09:15-0400 Respiratory rate 18 /min Lili Scally Other [facility] Other 08-01-2022 09:15-0400 SaO2% (BldA) [Mass fraction] 95 % Lili Scally Other [facility] Other 08-01-2022 09:15-0400 Systolic blood pressure 130 mm[Hg] Lili Scally Other [facility] Other 06-06-2022 10:45-0400 Body height 160.02 cm Lili Scally Other [facility] Other 06-06-2022 10:45-0400 Body mass index (BMI) [Ratio] 50.43 kg/m2 Lili Scally Other [facility] Other 06-06-2022 10:45-0400 Body weight 129.14 kg Lili Scally Other [facility] Other 06-06-2022 10:45-0400 Diastolic blood pressure 76 mm[Hg] Lili Scally Other [facility] Other 06-06-2022 10:45-0400 Respiratory rate 18 /min Lili Scally Other [facility] Other 06-06-2022 10:45-0400 SaO2% (BldA) [Mass fraction] 96 % Lili Scally Other [facility] Other 06-06-2022 10:45-0400 Systolic blood pressure 131 mm[Hg] Lili Scally Other [facility] Other 03-06-2022 14:45-0500 Body height 160.02 cm Lili Scally Other [facility] Other 03-06-2022 14:45-0500 Body mass index (BMI) [Ratio] 46.81 kg/m2 Lili Scally Other [facility] Other 03-06-2022 14:45-0500 Body weight 119.89 kg Lili Scally Other [facility] Other 03-06-2022 14:45-0500 Diastolic blood pressure 72 mm[Hg] Lili Scally Other [facility] Other 03-06-2022 14:45-0500 Respiratory rate 18 /min Lili Scally Other [facility] Other 03-06-2022 14:45-0500 SaO2% (BldA) [Mass fraction] 96 % Lili Scally Other [facility] Other 03-06-2022 14:45-0500 Systolic blood pressure 112 mm[Hg] Lili Scally Other [facility] Other 10-28-2021 11:15-0400 Body height 160.02 cm Lili Scally Other [facility] Other 10-28-2021 11:15-0400 Body mass index (BMI) [Ratio] 45.49 kg/m2 Lili Scally Other [facility] Other 10-28-2021 11:15-0400 Body weight 116.48 kg Lili Scally Other [facility] Other 10-28-2021 11:15-0400 Diastolic blood pressure 83 mm[Hg] Lili Scally Other [facility] Other 10-28-2021 11:15-0400 Respiratory rate 18 /min Lili Scally Other [facility] Other 10-28-2021 11:15-0400 SaO2% (BldA) [Mass fraction] 97 % Lili Scally Other [facility] Other 10-28-2021 11:15-0400 Systolic blood pressure 133 mm[Hg] Lili Scally Other [facility] Other 07-04-2021 09:15-0400 Body height 160.02 cm Lili Scally Other [facility] Other 07-04-2021 09:15-0400 Body mass index (BMI) [Ratio] 45.79 kg/m2 Lili Scally Other [facility] Other 07-04-2021 09:15-0400 Body weight 117.26 kg Lili Scally Other [facility] Other 07-04-2021 09:15-0400 Diastolic blood pressure 83 mm[Hg] Lili Scally Other [facility] Other 07-04-2021 09:15-0400 Respiratory rate 18 /min Lili Scally Other [facility] Other 07-04-2021 09:15-0400 SaO2% (BldA) [Mass fraction] 96 % Lili Scally Other [facility] Other 07-04-2021 09:15-0400 Systolic blood pressure 125 mm[Hg] Lili Scally Other [facility] Other 11-21-2020 10:30-0400 Body height 160.02 cm Clifford Munoz Jr. Other [facility] Other 11-21-2020 10:30-0400 Body mass index (BMI) [Ratio] 46.97 kg/m2 Clifford Munoz Jr. Other [facility] Other 11-21-2020 10:30-0400 Body weight 120.29 kg Clifford Munoz Jr. Other [facility] Other 11-21-2020 10:30-0400 Diastolic blood pressure 76 mm[Hg] Clifford Munoz Jr. Other [facility] Other 11-21-2020 10:30-0400 Respiratory rate 18 /min Cliffordronnie Munoz Jr. Other [facility] Other 11-21-2020 10:30-0400 SaO2% (BldA) [Mass fraction] 97 % lCifford Munoz Jr. Other [facility] Other 11-21-2020 10:30-0400 Systolic blood pressure 123 mm[Hg] Cliffordronnie Munoz Jr. Other [facility] Other Encounters Encounter Date Encounter Type Care Provider Facility Start: 05-11-2023 End: 05-11-2023 ambulatory [facility] Work Phone: Start: 05-11-2023 End: 05-11-2023 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 procedure [facility] Work Phone: Start: 04-28-2023 End: 04-28-2023 ambulatory STEFANY JOSE Not Available Start: 04-22-2023 End: 04-22-2023 ambulatory JAYSON INGRAM Not Available Start: 04-22-2023 Non-patient / Non-visit [facility] [employer] Work Phone: Start: 04-21-2023 End: 04-21-2023 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 procedure [facility] Work Phone: Start: 04-16-2023 End: 04-16-2023 ambulatory STEFANY JOSE Not Available Start: 04-07-2023 ambulatory Lili Linder ty:[facility] Start: 04-07-2023 End: 04-07-2023 ambulatory DO Kalie Kasper Work Phone: [facility] Work Phone: Start: 04-07-2023 End: 04-07-2023 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 procedure DO Kalie Rumschlag Work Phone: [facility] Work Phone: Start: 03-26-2023 End: 03-26-2023 ambulatory AKANKSHA Bloom KRISHAN [facility] Start: 03-04-2023 End: 03-04-2023 ambulatory Lili Burgos Other [facility] Other Start: 03-04-2023 Telephone encounter Lili [facility]w [facility] Start: 02-10-2023 End: 02-10-2023 ambulatory JUDITH G AMANDA Not Available Start: 02-03-2023 (DM) Diabetes Lili Alegriawinston [facility] Start: 02-03-2023 End: 02-04-2023 ambulatory DO Kalie Rumschlag Work Phone: [place] [employer] Other Start: 02-03-2023 End: 02-03-2023 Discharged Recurring DO Kalie Rumschlag Work Phone: [facility] Work Phone: Start: 02-03-2023 End: 02-03-2023 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 procedure DO Kalie Rumschlag Work Phone: [facility] Work Phone: Start: 01-26-2023 End: 01-26-2023 ambulatory Lili Burgos Other [facility] Other Start: 01-26-2023 Telephone encounter Lili Burgos Ace tiff [facility] Start: 01-15-2023 End: 01-15-2023 ambulatory BLANE FREDERICK Not Available Start: 01-15-2023 End: 01-15-2023 ambulatory JUDITH G AMANDA Not Available Start: 01-02-2023 End: 01-02-2023 ambulatory Lili Burgos Other [facility] Other Start: 01-02-2023 Telephone encounter Lili daltonkatya [facility] Start: 12-31-2022 End: 12-31-2022 ambulatory JUDITH G AMANDA Not Available Start: 11-26-2022 (DM) Diabetes Lili Burgos [facility] Start: 11-26-2022 End: 11-26-2022 ambulatory Lili Burgos Other [facility] Other Start: 11-25-2022 End: 11-25-2022 ambulatory Stoney Turner Other [facility] Other Start: 11-25-2022 Office outpatient ne w 30 minutes Stoney Turner [facility] Start: 11-12-2022 End: 11-12-2022 ambulatory Lili Burgos Other [facility] Other Start: 11-12-2022 Telephone encounter Lili daltonkatya [facility] Start: 10-30-2022 End: 10-30-2022 ambulatory Martine Tobias Facility:[facility] Start: 10-30-2022 End: 10-30-2022 Admission to same day surgery center DO Judith Amanda Work Phone: [facility] [place] Work Phone: Start: 10-30-2022 End: 10-30-2022 ambulatory DO Judith G Amanda Work Phone: [facility] Work Phone: Start: 10-09-2022 End: 10-09-2022 ambulatory Martine Tobias Other [facility] Other Start: 10-09-2022 Office outpatient visit 25 minutes Martine Tobias [facility] Start: 10-07-2022 End: 10-07-2022 ambulatory Martine Tobias Facility:[facility] Start: 10-07-2022 End: 10-07-2022 ambulatory DO Judith G Amanda Work Phone: [facility] Work Phone: Start: 10-07-2022 End: 10-07-2022 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 procedure DO Judith Amanda Work Phone: [facility] Work Phone: Start: 10-03-2022 (DM) Diabetes Lili [place] [employer] [facility] Start: 10-03-2022 End: 10-03-2022 ambulatory Lili Aubrey Other [facility] [employer] Other Start: 10-03-2022 Registered Recurring DO Judith Amanda Work Phone: [facility] Work Phone: Start: 09-26-2022 End: 09-26-2022 ambulatory Lili Airamwinston Other [facility] [employer] Other Start: 09-26-2022 Telephone encounter Lili matthew [facility] Start: 09-19-2022 End: 09-19-2022 ambulatory Martine Tobias Facility:[facility] Start: 09-19-2022 End: 09-19-2022 ambulatory DO Kalie Rumschlag Work Phone: [facility] Work Phone: Start: 09-19-2022 End: 09-19-2022 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 procedure DO Kalie Rumschlag Work Phone: [facility] [place] Work Phone: Start: 08-18-2022 End: 08-18-2022 ambulatory Martine Tobias Facility:[facility] Start: 08-18-2022 End: 08-18-2022 ambulatory DO Kalie Rumschlag Work Phone: [facility] Work Phone: Start: 08-18-2022 End: 08-18-2022 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 procedure DO Kalie Rumschlag Work Phone: [facility] [place] Work Phone: Start: 08-12-2022 End: 08-12-2022 ambulatory MartineOncothyreon Other [facility] Other Start: 08-12-2022 Office outpatient ne w 45 minutes Martine Tobias [facility] Start: 08-12-2022 Telephone encounter Lili matthew [facility] Start: 08-05-2022 End: 08-05-2022 ambulatory Lilihebert Burgos Other [facility] Other Start: 08-05-2022 Telephone encounter Lili matthew [facility] Start: 08-01-2022 (DM) Diabetes Lili Sequeira [facility] Start: 08-01-2022 End: 08-01-2022 ambulatory Lili Airamly Other [facility] Other Start: 08-01-2022 Registered Recurring DO Kalie Rumschlag Work Phone: [facility] Work Phone: Start: 07-22-2022 End: 07-22-2022 ambulatory Lili Scally Other [facility] Other Start: 07-22-2022 Telephone encounter Lili Burgos [place] [facility] Start: 07-09-2022 End: 07-09-2022 ambulatory Lililillian Burgos Other [facility] Other Start: 07-09-2022 Telephone encounter Lili Scally [place] [facility] Start: 07-01-2022 End: 07-02-2022 Count includes the [facility] Facility:[facility]1 Start: 06-20-2022 End: 06-21-2022 Count includes the [facility] Facility: Start: 06-16-2022 End: 06-16-2022 ambulatory Lili Scally Other [facility] Other Start: 06-16-2022 Telephone encounter Lili Scally [facility] Start: 06-06-2022 (DM) Diabetes Lili Scally [facility] Start: 06-06-2022 End: 06-06-2022 ambulatory Lili Scally Other [facility] Other Start: 06-03-2022 End: 06-03-2022 ambulatory NARENDRANATH LAKSHMIPATHY . Facility: Start: 05-15-2022 End: 05-16-2022 Count includes the [facility] Facility: Start: 05-13-2022 End: 05-13-2022 ambulatory Lili Scally Other [facility] Other Start: 05-13-2022 Telephone encounter Lili Scally [facility] Start: 04-14-2022 End: 04-14-2022 ambulatory Lili Scally Other [facility] Other Start: 04-14-2022 Telephone encounter Lili Scally [facility] Start: 04-03-2022 End: 04-03-2022 ambulatory Lili Scally Other [facility] Other Start: 04-03-2022 Telephone encounter Lili Scally [facility] Start: 03-24-2022 End: 03-24-2022 ambulatory Lili Scally Other [facility] Other Start: 03-24-2022 Telephone encounter Lili Scally [facility] Start: 03-21-2022 End: 03-21-2022 ambulatory Lili Scally Other [facility] Other Start: 03-21-2022 Telephone encounter Lili Scally [facility] Start: 03-06-2022 (DM) Diabetes Lili Scally [facility] Start: 03-06-2022 End: 03-07-2022 Count includes the [facility] [employer] Other Start: 02-13-2022 End: 02-14-2022 Count includes the [facility] Facility: Start: 12-31-2021 End: 12-31-2021 ambulatory Lili Scally Other [facility] Other Start: 12-31-2021 Telephone encounter Lili Scally [facility] Start: 12-11-2021 On license of [facility] Facility: Start: 11-20-2021 End: 11-20-2021 ambulatory Lili Scally Other [facility] Other Start: 11-20-2021 Telephone encounter Lili Scally [facility] Start: 11-06-2021 End: 11-07-2021 Count includes the [facility] Facility: Start: 10-28-2021 (DM) Diabetes Lili Scally [facility] Start: 10-28-2021 End: 10-28-2021 ambulatory Lili Scally Other [facility] Other Start: 09-20-2021 End: 09-20-2021 ambulatory Lili Scally Other [facility] Other Start: 09-20-2021 Telephone encounter Lili Scally [facility] Start: 09-12-2021 End: 09-12-2021 ambulatory Lili Burgos Other [facility] Other Start: 09-12-2021 Telephone encounter [facility] Start: 08-01-2021 End: 08-02-2021 ambulatory [facility] Facility: Start: 07-22-2021 End: 07-22-2021 ambulatory Lili Burgos Other [facility] Other Start: 07-22-2021 Telephone encounter [facility] Start: 07-08-2021 End: 07-08-2021 ambulatory Lili Burgos Other [facility] Other Start: 07-08-2021 Telephone encounter [facility] Start: 07-04-2021 (DM) Diabetes Lili Burgos [facility] Start: 07-04-2021 End: 07-04-2021 ambulatory Lili Burgos Other [facility] Other Start: 06-20-2021 End: 06-20-2021 ambulatory Clifford Munoz Other [facility] Other Start: 06-20-2021 Telephone encounter Clifford Munoz [facility] Start: 04-19-2021 End: 04-19-2021 ambulatory Clifford Munoz Other [facility] Other Start: 04-19-2021 Telephone encounter Clifford Munoz [facility] Start: 03-28-2021 End: 03-28-2021 ambulatory Clifford Munoz Other [facility] Other Start: 03-28-2021 Telephone encounter Clifford Bello [facility] Start: 01-29-2021 End: 01-29-2021 ambulatory Clifford Munoz Jr. Other [facility] Other Start: 01-29-2021 Telephone encounter Clifford key [facility] Start: 11-27-2020 Telephone encounter Clifford key [facility] Start: 11-21-2020 (DM) Diabetes Clifford Munoz Jr. [facility] Start: 09-25-2016 End: 09-26-2016 Ambulatory QUE BLAKE Facility:[facility] Start: 09-20-2016 End: 09-20-2016 Emergency department patient visit LAUREN CARDENAS Facility:[facility] Start: 09-08-2016 End: 09-15-2016 Evaluation and management of inpatient QUE BLAKE Facility:[facility] Procedures Date Procedure Procedure Detail Performing Clinician Start: 10-30-2022 Lumbosacral myelography DO Judith Amanda Work Phone: Start: 10-07-2022 Dual energy X-ray absorptiometry DO Judith Amanda Work Phone: Start: 09-19-2022 MR lumbar spine wo con DO Kalie Rumschlag Work Phone: Start: 08-18-2022 X-ray of lumbar spin e, six views including bending views DO Kalie Rumschlag Work Phone: Start: 09-08-2016 REPLACE OF R KNEE JT WITH SYNTH SUB, CEMENT, OPEN APPROACH QUE BLAKE Plan of Treatment Date Care Activity Detail Author Start: 10-30-2022 [facility] Start: 10-30-2022 Computerized axial tomography of lumbar spine with contrast [facility] Patient Education [facility] Myelography [facility] Work Phone: [facility] Immunizations Immunization Date Immunization Notes Care Provider Fa olayinka 06-12-2020 COVID-19 Vaccine Mod samuel - Documentation Purposes Only Clifford Munoz Jr. Other [facility] 05-15-2020 COVID-19 Vaccine Mod samuel - Documentation Purposes Only Clifford Munoz Jr. Other [facility] Payers Date Payer Category Payer Unknown [id number] 2019 Self-pay [id number] 2017 Medicare [id number] 2.1 [id number] 1960 Unknown [id number] 2.16.840.1.312852.3.579.2.593 1960 Unknown [id number] 2.16.840.1.188706.3.579.2.593 1960 Unknown [id number] 2.16.840.1.294180.3.579.2.593 1960 Unknown [id number] 2.16.840.1.304207.3.579.2.593 1960 Unknown [id number] 2.16.840.1.516545.3.579.2.593 1960 Unknown [id number] 2.16.840.1.911772.3.579.2.593 1960 Unknown [id number] 2.16.840.1.818708.3.579.2.593 1960 Unknown [id number] 2.16.840.1.968892.3.579.2.593 1960 Unknown [id number] 2.16.840.1.753770.3.579.2.593 1960 Unknown [id number] 2.16.840.1.693017.3.579.2.1286 1960 Unknown [id number] 2.16.840.1.571911.3.579.2.1259 1960 Unknown [id number] 2.16.840.1.318622.3.579.2.1259 1960 Unknown [id number] 2.16.840.1.439259.3.579.2.1259 1960 Unknown [id number] 2.16.840.1.018420.3.579.2.1259 1960 Unknown [id number] 2.16.840.1.249286.3.579.2.125 1960 Unknown [id number] 2.16.840.1.264444.3.579.2.9 1960 Unknown [id number] 2.16.840. 1.884524.3.579.2.9 1959 Medicare [id number] 2.1 6.840.1.491519.19 1959 Private Health Insurance [id number] Medicare [id number] 2. .840.1.682747.19 Unknown Alexis / [id number] Unknown [id number] 2.16.840.1.838713.3.579.2.531 Unknown [id number] 2.16.840.1.105357.3.579.2.531 Unknown [id number] 2.16.840.1.285735.3.579.2.531 Unknown [id number] 2.16.840.1.369209.3.579.2.531 Unknown [id number] 2.16.840.1.127161.3.579.2.531 Unknown [id number] 2.16.840.1.981224.3.579.2.531 Social History Date Type Detail Facility Unknown if ever smoked [facility] Other Sex Assigned At Sex Assigned At Bir th [facility] Other Start: 01-03-2021 End: 03-25-2024 Tobacco smoking status NHIS Ex-smoker (finding) [facility] Start: 1960 Sex Assigned At Female [facility] Medical Equipment Procedure Code Equipment Code Equipment Origin al Text Equipment Identifier Dates Arthroplasty, knee, total, minimally invasive Orthopaedic cement, non-medicated [id number] FDA Start: 01-03-2021 Arthroplasty, knee, total, minimally invasive Uncoated knee femur prosthesis ()[id number] FDA Start: 01-03-2021 Arthroplasty, knee, total, minimally invasive Tibial insert ()[id number] FDA Start: 01-03-2021 Arthroplasty, knee, total, minimally invasive Polyethylene patella prosthesis ()[id number] FDA Start: 01-03-2021 Arthroplasty, knee, total, minimally invasive Uncoated knee tibia prosthesis, metallic ()[id number] FDA Start: 01-03-2021 Start: 01-29-2021 Blood Sugar Diagnostic (Accu-Chek Guide Test Strips) strip Start: 05-06-2023 Blood Sugar Diagnostic (Accu-Chek Guide Test Strips) strip Start: 05-06-2023 End: 05-06-2023 Clinical Notes 11-21-2020 to 04-07-2023 Note Date & Type Note Facility 04-07-2023 Evaluation note Authored April 07, 2023 11:54am Patient here today for an appointment, insulin training completed. Educated pt on Fiasp fast-acting insulin with use of 1:50 corrective scale. Patient states they are anxious, expresses concerns for having low blood sugar. Patient was able to use correct technique, provided return demonstration with teaching insulin pen. Discussed possible side effects hypoglycemia and hyperglycemia and discussed various treatment options. Reviewed various examples of blood glucose results with use of corrective scale, pt was able to determine the correct of insulin doses to be administered. Attempt to download Counsyl and Crave.com apps with patient's personal phone, but phone is not compatible with either application. Instructed pt to check blood glucose with her personal meter before each meal and bedtime. Patient states understanding and is in agreement with plan. All questions answered. Prescription for Bella CGM will be sent to [facility] to determine cost for CGM. Patient provided contact number for [facility]. If pt is unable to afford CGM, pt instructed to continue use of her personal meter. Pt to return in 2 weeks for download with certified lactation educator and in approximately 4 week follow up with provider. Encouraged to return for follow up visit. 45 minutes spent on education with Jodi DAIGLE, RN. [facility] Work Phone: 1(740) 268-254012-19-2023 Evaluation note* Encounter Date Diagnosis Assessment Notes Treatment Notes Treatment Clinical Notes Jan, Type 2 diabetes mellitus with hyperglycemia (ICD-10 - E11.65) ASSESSMENT: 1. Controlled, a Type 2 diabetes with A1c of 9.7%, was 8.0%. Worsening. 2. Out of Jardiance X3 weeks should not have impacted A1c to this degree, but needs to restart. Defers CGM d/t cost. Sampled Prompt.lyrdMusations 12.06/999 and given voucher Jardiance_ _ should buy 6 weeks of treatment with SGLT2i while settling out LOW INCOME SUBSIDY as recommended by for PAP Jardiance. (knows to hold Metfromin [...] of insulin. Patient deferred due to her bmr-zt-nskgvr cost. We will retry in a couple [...] at goal of less than 130/80 Jan, MCFP current use of insulin (ICD-10 - Z79.4) Jan, BMI 50.0-59.9, adult (ICD-10 - Z68.43) [facility] Other 10-11-2023 Evaluation note* Encounter Date Diagnosis [...] prohibitive. Could also consider patient assistance with Cryptopaytonie crawford [place]. We did have a conversation about her [...] of insulin. Patient deferred due to her afm-py-pskvml cost. We will retry in a couple [...] at goal of less than 130/80 Nov, MCFP current use of insulin (ICD-10 - Z79.4) Nov, BMI 50.0-59.9, adult (ICD-10 - Z68.43) [facility] Other 10-10-2023 Evaluation note* Encounter Date Diagnosis [...] Nov, Other chronic pain (ICD-10 - G89.29) [facility] Other 08-24-2023 Evaluation note* Encounter Date Diagnosis [...] of lumbar spinal fusion (ICD-10 - Z98.1) [facility] Other 08-18-2023 Evaluation note* Encounter Date Diagnosis [...] of insulin. Patient deferred due to her gqq-wh-frtgbf cost. We will retry in a couple [...] needed 10-03-2022.PAP Ozempic/Tresiba. 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 Shows posterior mechanical fusion at the L1-S1 with posterior decompression at the L1-L3. Patient had physical therapy at [facility] and continues to do the home physical therapy without improvement. Will order xray lumbar 6 view to rule out any spondylolisthesis. Will order MRI to rule out any cord compression. Will get release of information from pain management Dr. Cook and [facility] physical therapy for continuity of care.Will order Aqua therapy. OARRS reviewed. pharmacological management reviewed, will continue with current prescriptions as prescribed. Will add lidocaine patch and bzjg-qln-uvsrzxc Thermo patch. Will follow-up in 8 weeks [...] rule out osteoporosis Jul, Other OARRS reveiwed iiko Other 06-16-2023 Evaluation note* Encounter Date Diagnosis [...] of insulin. Patient deferred due to her ulu-ff-prddeo cost. 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 Weight up today without decrease in insulin needs, no increases satiety The patient was given a Dexcom G6 sample and loaned an Office owned Dexcom G6 Bottom Saw Operator. The sensor was placed on the back of her right arm by this educator. The patient was shown how to unlock the managing attorney and read her BG. 15 minutes were spent placing the sensor and educating the patient by Lit Dixon RN, [facility] . 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 Weight up today without decrease in insulin needs, no increases satiety [facility] Other 12-29-2022 NoteCONSULTATION CONSULTATION DATE: 02/13/2022 HISTORY [...] is able to walk unassisted. Medications include Taloga 5/325 t.i.d., baclofen 10 mg q.h. s., [...] as well as a lumbar laminectomy in 2016, the patient is having significant increased pain. We will update a CT with contrast of her lumbar spine. I did offer the patient a lumbar epidural steroid injection; however, the patient declines stating while they do give her significant relief, it is not long lasting. We will change her gabapentin to Lyrica 75 mg b.i.d. A referral will be sent to [facility]surgery to Dr. Moses Goetz for evaluation and patient is in complete agreement with this. We will continue to maintain her medications at this time, which will include Lyrica, Taloga and baclofen. We will see the patient in three months' time, unless otherwise indicated. Patient was asked to call the office with an update once she has seen Neurosurgery.[facility] 12-31-2021 Evaluation note* Encounter Date Diagnosis Assessment Notes Treatment Notes Treatment Clinical Notes Dec, Type 2 diabetes mellitus with hyperglycemia (ICD-10 - E11.65) [facility] Other 09-21-2022 NoteCONSULTATION CONSULTATION DATE: 11/06/2021 HISTORY [...] secondary to her pain. 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 Weight slightly improving. hopeful for continue reduction to increase insulin sensitivity and decrease insulin needs. [facility] Other 06-16-2022 NoteCONSULTATION CONSULTATION DATE: 08/01/2021 HISTORY [...] burn but manageable. Her current medications are Taloga 5/325 t.i.d., baclofen 10 mg q.h.s. and [...] move forward with aqua therapy at the [place] location. I did discuss vitamins with her as well as nutrition importance. Patient will be seen at the clinic in three months' time unless otherwise indicated. [facility] Signed and Approved by: ALICIA HERNANDEZ . 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 [facility] Other 10-06-2021 Evaluation note* Encounter Date Diagnosis [...] Prescriptions: None needed at this time. 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) Nov, HTN (hypertension) (ICD-10 - I10) High Blood Pressure: Care Instructions material was published to portal Nov, Hyperlipidemia (ICD-10 - E78.5) Learning About High Cholesterol material was published to portal Nov, Dietary counseling and surveillance (ICD-10 - Z71.3) Learning About Healthy Weight material was published to portal Nov, BMI 45.0-49.9, adult (ICD-10 - Z68.42) Nov, Albuminuria (ICD-10 - R80.9) Nov, BMI 50.0-59.9, adult (ICD-10 - Z68.43) Nov, Other Learning About Vitamin D material was published to portal [facility] Other Evaluation noteNo InformationNortSecret Sales Other Evaluation noteNo assessment information available [facility] Work Phone: Evaluation note* Diagnosis Onset Date Resolution Status Type 2 diabetes mellitus with hyperglycemia acute [facility] Work Phone: Hisfnti general Narrative - Reported* Type Description Date Medical History RSD Medical History fibromyalgia Medical History hypertension Medical History type II diabetes Surgical History C section X3 Surgical History rotator cuff tear repair Surgical History back surgery x3 Surgical History knee surgery Surgical History hysteroscopy 4/14 Surgical History c5-c6 plates & screws Surgical History D&C 14 Hospitalization History see above [facility] Other HisBloomfire general Narrative - Reported* Type Description Date [...] replacement, Left 12/2020 Hospitalization History see above [facility] Other [facility] general Narrative - Reported* Type Description Date Medical History fibromyalgia Medical History hypertension Medical History type II diabetes Surgical History C section X3 Surgical History rotator cuff tear repair Surgical History back surgery x3 Surgical History knee surgery Surgical History hysteroscopy 4/14 Surgical History c5-c6 plates & screws Surgical History D&C /14 Surgical History knee replacement, Left 12/2020 Hospitalization History see above [facility] Other Hispaun general Narrative - Reported* Type Description Date [...] bilatera l 2021 Hospitalization History see above [facility] Other History general Narrative - Reported* Type [...] Hospitalization History see above Hospitalization History [facility]- Flu 02/2022 [facility] Other History general Narrative - Reported* Type [...] Hospitalization History see above Hospitalization History [facility]- Flu 02/2022 [facility] Other History [facility] - [facility] Other Summary Purpose Family History Relationship Condition Age at Onset Recorded Date/T jaycee Not Specified Hypertension Unknown Myocardial infarction Unknown father Pneumonia Unknown Unknown Relationship Condition Age at Onset Recorded Date/T jaycee Not Specified Hypertension Unknown Myocardial infarction Unknown father Pneumonia Unknown Unknown father Malignant neoplasm Unknown Heart disease Unknown Not Specified Unknown Hypertension Unknown sister Malignant neoplasm Unknown Family history of thyroid disease Unknown Advance Directives Advance Directive Response Recorded Date/ Time Advance Directives No January 17, 2020 3:49pm Advance Directive Response Recorded Date/ Time Advance Directives No January 17, 2020 2:49pm Chief Complaint and Reason for Visit Chief Complaint DM M54.16 Chief Complaint DM M54.16 m54.16 Chief Complaint M54.16 m54.16 DM z78.0 Chief Complaint M54.16 m54.16 DM z78.0 Z98.1 M48.062 Chief Complaint Dm DM Chief Complaint Dm DM DMN F/U-METER Reason for Visit Type 2 diabetes livier itus with hyperglycemia Chief Complaint DMN F/U-METER DS download meter METER Reason for Visit Type 2 diabetes livier itus with hyperglycemia Type 2 diabetes mellitus with hyperglycemia Reason for Referral Reason EMG bilat lower extr emities Diagnosis 1 BMI 50.0-59.9, adult (Z68.43) Referral [facility] Referring Provider First Name Martine Referring Provider Last Name Tobias Referring Provider Specialty Nurse Pract itioner Referred Organization [facility] Referred Address [address] [place] [place], [place],[address] Referred Provider Specialty Neurology Referral Priority Routine Reason evaluate and treat - tremors Diagnosis 1 BMI 50.0-59.9, adult (Z68.43) Referral Organization [facility] Referring Provider First Name Martine Referring Provider Last Name Tobias Referring Provider Specialty Nurse Pract itioner Referred Organization [facility] Referred Address [address] [place],[address] Referred Provider Specialty Neurology Referral Priority Routine Reason Evaluate and treat - osteoporosis Diagnosis 1 BMI 50.0-59.9, adult (Z68.43) Referral Organization [facility] Referring Provider First Name Martine Referring Provider Last Name Tobias Referring Provider Specialty Nurse Pract itioner Referred Organization [facility] Referred Provider Jennifer Siu Referred Address [address] [place], [place],[address] Referred Provider Specialty Nurse Practi tioner Referral Priority Routine Additional Source Comments INFORMATION SOURCE (unrecogn ized section and content) DATE CREATED AUTHOR 08/12/2017 [facility] DATE CREATED AUTHOR AUTHOR'S ORGANIZ ATION 07/02/2022 [facility] DATE CREATED AUTHOR AUTHOR'S ORGANIZ ATION 03/30/2023 [facility] DATE CREATED AUTHOR AUTHOR'S ORGANIZ ATION 04/08/2023 [facility] DATE CREATED AUTHOR AUTHOR'S ORGANIZ ATION 04/29/2023 [facility] dical Specialists EPIC REASON FOR VISIT (unrecogniz ed section and content) DM 3 month follow upNo [facility]for [facility] Pt does not wish our services 03/28/21Cancelled. Requested we do not call to r/sDLC pen needlesDC VoicemailDC Basaglar refillDS Basaglar refillDS Jardiance RefillDM follow up, Type 2 IDDM, Accu Chek Guide MeterDS OzempicDS Basaglar alternativeDS Ozempic costDM, DM follow up, Type 2 IDDM, Accu Chek Guide Meter, [facility] Visit CodesDS Ozempic Sunitha PAP questionDS RefillDM rescheduled appt, DM, DM follow up, Type 2 IDDM, Accu Chek Guide Meter, [facility], [facility] Visit CodesDS please callDS PAP/OzempicDS PAP OzempicDS [...] Active Member Role Status Dates Judith Newman DO Primary Care Provider Active Team Status: Inactive Member Role Status Dates [facility] Attending Provider Active Judith Newman DO Primary Care Provider Active Team Status: Active Member Role Status Dates Kalie Kasper DO Primary Care Provider, Attending Provider Active Team Status: Inactive Member Role Status Dates Judith Newman DO Primary Care Provider Active [facility] Attending Provider Active Team Status: Inactive Member Role Status Dates Lili Burgos APRN Attending Provider Active Start: February 03, 2023 End: February 03, 2023 Team Status: Inactive Member Role Status Dates Kalie Kasper DO Primary Care Provid er, Attending Provider Active Start: February 03, 2023 End: February 03, 2023 Team Status: Inactive Member Role Status Dates Judith Newman DO Primary Care Provider Active Start: April 07, 2023 End: April 07, 2023 Lili Burgos APRN Attending Provider Active Start: April 07, 2023 End: April 07, 2023 Team Status: Inactive Member Role Status Dates Judith Newman , Primary Care Provider Active Start: April 21, 2023 End: April 21, 2023 Robin Dixon RN Attending Provider Active St art: April 21, 2023 End: April 21, 2023 Team Status: Active Member Role Status Dates Judith Newman DO Primary Care Provide r, Attending Provider Active Start: April 22, 2023 Team Status: Inactive Member Role Status Dates Judith Newman DO Primary Care Provider Active Start: May 11, 2023 End: May 11, 2023 Lili Burgos APRN Attending Provider Active Start: May 11, 2023 End: May 11, 2023 Goals (unrecognized section and content) Goals may [...] BE BASED ON THE PRIMARY CLINICAL RECORDS. [employer] provides no warranty or guarantee of the accuracy or completeness of information in this document.
--- NOTE | 2023-05-12 09:57 | ECG_ITS ---
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
[2023-05-12 11:25] LABS: BUN Creatinine Ratio 15.7; Calcium 8.8 mg/dL (8.5-10.1); Carbon Dioxide 28.8 mmol/L (21.0-32.0); Chloride 100 mmol/L (98-107); Estimated GFR (African America >60 (>=60); Estimated GFR (Non-African Ame 55 (>=60); Glucose 122 mg/dL (74-106); Potassium 4.8 mmol/L (3.5-5.1); Sodium 139 mmol/L (136-145)
== END 2023-05-12 09:49 | disposition home or self-care (01) ==
PROVIDERS: Visit Provider Obstetrics & Gynecology
DX: Z01.812 Encounter for preprocedural laboratory examination (principal); Z01.810 Encounter for preprocedural cardiovascular examination; R10.2 Pelvic and perineal pain; N95.0 Postmenopausal bleeding; I10 Essential (primary) hypertension; E11.9 Type 2 diabetes mellitus without complications
CPT/HCPCS: 80048; 93005

== ENCOUNTER 2023-05-18 15:04 | Outpatient (OUT) | payer MEDICARE, SELFPAY ==
--- NOTE | 2023-05-18 15:55 | CA_ITS ---
Patient Name: JEANETTE FRAGA MR#: [id number] : 1960 Exam Date: 05/18/2023 Ordering Doctor: DR MI CABRERA M.D. ECHOCARDIOGRAM REPORT PROCEDURE: CA ECHO DOPPLER COMPLETE INDICATIONS: Systolic murmur COMPARISON: None. DESCRIPTION: COMPLETE ECHOCARDIOGRAM Real-time transthoracic echocardiography with 2D, M-mode, spectral and color flow Doppler performed. QUALITY: Technical quality was adequate. LEFT VENTRICLE: Normal chamber size. Moderate concentric left ventricular hypertrophy. Global left ventricular systolic function is normal. LV EF: Visual estimation of left ventricular ejection fraction is 55% DIASTOLIC: ATRIAL SEPTUM: LEFT ATRIUM: Normal chamber size. RIGHT ATRIUM: Mild dilatation. RIGHT VENTRICLE: Normal chamber size. Normal right ventricular systolic function. TRICUSPID VALVE: Normal mobility and thickness. No stenosis with trivial regurgitation. Mild pulmonary hypertension. RVSP 35 mmHg MITRAL VALVE: Normal mobility and thickness. No evidence of mitral valve stenosis. There is no mitral annular calcification. Trivial mitral regurgitation. AORTIC VALVE: Normal trileaflet appearance. Moderately calcified aortic valve. Moderately diminished mobility. Doppler velocity suggest moderate aortic valve stenosis. DVI 0.38, ALIYA 1.3 cm?, Vmax 2.3 m/s, Mean gradient 11mmHg. No aortic regurgitation. AORTIC ROOT: Normal diameter and appearance. PULMONIC VALVE: Normal thickness and mobility. No stenosis. No regurgitation. PERICARDIUM: No evidence of pericardial effusion. IVC: Collapses with inspirations. PLEURA: CONCLUSION: 1. Moderate concentric left ventricular hypertrophy with normal systolic function. LVEF is estimated at 55%. 2. Normal right ventricular size and systolic function. 3. Moderate aortic valve stenosis. 4. Normal right-sided pressures. Adult Echocardiography Procedure Report Left Ventricle LVEDD (3.7 - 5.6 cm): 4.99 cm LVESD (2.2 - 4.0 cm): 3.56 cm LVIVS thickness (0.6 - 1.2 cm): 1.45 cm LVPW thickness (0.5 - 1.0 cm): 1.28 cm e': 0.14 m/s E - e': 5.89 LVOT Max Gradient: 3.10 mm[Hg] LVOT Area (cm2): 0.88 m/s Peak Velocity (LVOT): 0.88 m/s Mean Velocity (LVOT): 0.52 m/s LVOT Diameter 2.11 cm Left Atrium LA Volume Index (2D A2C): 31.96 ml/m2 Left Atrium Systolic Dimension: 3.80 cm Mitral Valve MV E to A Ratio: 0.88 Mitral Valve A-Wave Peak Velocity: 0.92 m/s Mitral Valve E-Wave Peak Velocity: 0.81 m/s Right Ventricle RV Internal Diastolic Dimension: 3.61 cm Aorta AO Root Diam: 2.88 cm Ascending Ao Diam: 2.71 cm Aortic Valve AoV Area (Peak Igor): 1.33 cm2, 1.33 cm2 AoV Area (VTI): 1.12 cm2, 1.12 cm2 Peak Velocity(Antegrade Flow): 2.30 m/s Peak Gradient(Antegrade Flow): 21.19 mm[Hg] Mean Velocity(Antegrade Flow): 1.55 m/s Mean Gradient(Antegrade Flow): 10.97 mm[Hg] Velocity Time Integral: 43.95 cm Tricuspid Valve Peak Velocity (Regurgitant Flow): 1.60 m/s, 2.83 m/s Pulmonic Valve Mean Gradient: 3.75 mm[Hg], 3.46 mm[Hg] Mean Velocity: 0.92 m/s, 0.90 m/s Peak Velocity: 1.25 m/s, 1.32 m/s Peak Gradient: 6.86 mm[Hg], 5.72 mm[Hg], 7.01 mm[Hg] Right Atrium Right Atrium Systolic Pressure: 78.00 ml, 78.00 ml Dictated by: Akash Sellers M.D. on 05/19/2023 at 19:10 Approved by: Akash Sellers M.D. on 05/19/2023 at 19:15
== END 2023-05-18 15:05 | disposition home or self-care (01) ==
LOC: CARD 15:04
PROVIDERS: Visit Provider Family Medicine
DX: R01.1 Cardiac murmur, unspecified (principal)
CPT/HCPCS: 93306

== ENCOUNTER 2023-05-19 07:40 | Day surgery (SDC) | payer MEDICARE, SELFPAY ==
--- OUTSIDE RECORDS SUMMARY | 2023-05-19 07:43 | XMS_ITS | CCD ---
Author Organization [facility] Care Team Providers Care Winding Rack Operator Name Role Phone QUE BLAKE Unavailable Unavailable GECHASEINGQUE Unavailable Unavailable SELF, REFERRED Unavailable Unavailable OLIVE, ROSALES Unavailable Unavailable [place] Unavailable Unavailable QUE BLAKE Unavailable Unavailable WIEPKING, LAUREN Unavailable Unavailable SELF, REFERRED Unavailable Unavailable RICKY, JULIEN Unavailable Unavailable OLIVE, ROSALES Unavailable Unavailable QUE BLAKE J Unavailable Unavailable QUE BLAKE Unavailable Unavailable QUE BLAKE Unavailable Unavailable OLIVE, ROSALES Unavailable Unavailable Clifford Munoz Jr. Unavailable Clifford Munoz Unavailable Lili Burgos Unavailable [facility] Unava ilable OLIVIER ., DR ADAM Liu Admitting Unavailable AGUAYO ., DR ADAM Liu Attending Unavailable HERNANDEZ ., ALICIA Consulting Unavailable LAKSHMIPATHY ., NARENDRANATH Consulting Daphne vailable [facility] Unava ilable LAKSHMIPATHY ., NARENDRANATH Admitting Daphne vailable LAKSHMIPATHY ., NARENDRANATH Attending Daphne vailable [facility] Unava ilable MARTHA, DR BLANE Cutler Consulting Unavailable HERNANDEZ .ALICIA Admitting Unavailable HERNANDEZ .ALICIA Attending Unavailable HERNANDEZ ., ALICIA Consulting Unavailable [facility] Unava ilable HALKER ., JASON Attending Unavailable HALKER .JASON Consulting Unavailable LAKSHMIPATHY ., NARENDRANATH Admitting Daphne vailable [facility] Primary Care Unava ilable HALKER ., JASON Admitting Unavailable HALKER .FILEMONIE Attending Unavailable LAKSHMIPATHY ., NARENDRANATH Consulting Daphne vailable [facility] Unava ilable AGUAYO ., DR ADAM Liu Admitting Unavailable AGUAYO ., DR ADAM Liu Attending Unavailable HERNANDEZ ., ALICIA Consulting Unavailable [facility] Unava ilable HERNANDEZ ., ALICIA Consulting Unavailable AGUAYO ., DR ADAM Liu Attending Unavailable AGUAYO ., DR ADAM Liu Admitting Unavailable [facility] Unava ilable AGUAYO ., DR ADAM Liu Admitting Unavailable AGUAYO ., DR ADAM Liu Attending Unavailable HERNANDEZ ., ALICIA Consulting Unavailable [facility] Unava ilable LAKSHMIPATHY ., NARENDRANATH Admitting Daphne vailable LAKSHMIPATHY ., NARENDRANATH Attending Daphne vailable LAKSHMIPATHY ., NARENDRANATH Consulting Daphne vailable Martine Tobias Unavailable Majo, Kalie Primary Care Provider Majo, DO Jade Attending Provider DO Judith Newman Primary Care Provider [phone] [facility] Tobias Attending Provider Majo, DO Jade Primary Care Provider Majo, DO Jade Attending Provider [phone] Stoney Turner Unavailable AKANKSHA NICKERSON Attending Unavailable JUDITH NEWMAN Referring Unavailable JUDITH NEWMAN G Primary Care Unavailable Matthewlanelly, DO Kalie Primary Care Provider Majo, Kalie Attending Provider Shanna Tobiasica Admitting Unavailable Martine Tobias Attending Unavailable Judith Newman G Primary Care Unavailable Shanna Tobiasica Admitting Unavailable Martine Tobias Attending Unavailable AmandaBasil irvingee G Primary Care Unavailable Jatinder Martine Admitting Unavailable Jatinder Martine Attending Unavailable Amanda, Judith G Primary Care Unavailable Rumschlanelly, Kalie Admitting Unavailable Rumcurtislag, Kalie Primary Care Unavailable Rummerry, Kalie Attending Unavailable Lili Burgos Admitting Unavailable Lili Burgos Attending Unavailable Judith Newman Primary Care Unavailable Martine Tobias Attending Unavailable Martine Tobias Admitting Unavailable Judith Newman Primary Care Unavailable JUDITH NEWMAN Attending Unavailable JUDITH NEWMAN Attending Unavailable STEFANY GARCIA Attending Unavailable JAYSON INGRAM Attending UnavailSTEFANY Jiang Attending Unavailable JENNIFER CABRERA Attending Unavailable JUDITH NEWMAN Attending Unavailable BLANE [...] 08-01-2022 Start: 08-01-2022 take 1 capsule by [facility] every week Start: 08-01-2022 take 1 capsule by [facility] every week Cholecalciferol 1.25 MG (93808 UT) 1 capsule Orally weekly for 56 days Then OtC 4000 u daily therafter Jul, Active take 2 tablets by [facility] every twenty-four hours Vitamin D3 50 MCG (2000 UT) 2 tablets Orally Once a day Not-Taking/PRN take 1 capsule by [facility] every week Cholecalciferol 100 MCG (4000 UT) 1 capsule Orally weekly for 56 days Then OtC 4000 u daily therafter Active take 1 capsule by [facility] every week Cholecalciferol 50 MCG (2000 UT) 1 capsule Orally weekly for 56 days Then OtC 4000 u daily therafter Active take 1 capsule by mo ut every week Cholecalciferol 1.25 MG (59772 UT) 1 capsule Orally weekly for 56 [...] 2023 1:00am take 1 capsule by [facility] every twelve hours Pregabalin 75 MG 1 [...] tablet by mickey th every six hours [place] Active take 1 tablet by mickey th twice daily as needed [place] 5-325 MG 1 tablet as needed Orally [...] 30, 2022 9:54am take 1 tablet by mcikey th every twelve hours Baclofen 10 MG [...] pen injector (20 sources) Insulin Analog Start: 3 inject 54 [IU] by subcutaneous injection once [...] sources) Long-term current use of insulin; 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: [long-term (current) use of insulin] Episodic Other aftercare (10 sources) long-term (current) use of insulin; 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: [long-term current use of insulin Z79.4] Onset: 11-21-2020 [...] 09-08-2016 Resolved: 11-21-2020 Chronic Unclassified (1 source) long-term (current) use of oral hypoglycemic drugs; 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: [MCFP (CURRENT) USE OF ORAL HYPOGLYCEMIC DRUGS] Onset: [...] - challengeon 04-22-2023 Albumin [Mass/Vol] 4.0 g/dL [facility] ALP [Catalytic activity/Vol] 104 U/L [facility] ALT [Catalytic activity/Vol] 19 U/L [facility] AST [Catalytic activity/Vol] 17 U/L [facility] Bilirubin [Mass/Vol] 0.2 mg/dL [facility] Calcium [Mass/Vol] 9.8 mg/dL [facility] Chloride [Moles/Vol] 101 mmol/L [facility] CO2 [Moles/Vol] 28 mmol/L [facility] Creatinine [Mass/Vol] 0.75 mg/dL [facility] Glucose [Mass/Vol] 228 mg/dL [facility] Potassium [Moles/Vol] 5.0 mmol/L [facility] Protein [Mass/Vol] 6.8 g/dL [facility] Sodium [Moles/Vol] 137 mmol/L [facility] Urea nitrogen [Mass/Vol] 21 mg/dL [facility] Laboratory - Hematology and Cell countson 04-22-2023 HbA1c (Bld) [Mass fraction] 8.9 % [facility] No Panel Informationon 04-21 Estimated GFR (Non- 89 mL/min [facility] No Panel Informationon 04-07 Bedside Glucose 182 [facility] A1C HEMOGLOBINon 02-03-2023 HbA1c (Bld) [Mass fraction] 9.7 % [email or web address] Other Glucose - FINGER STICKon Glucose [Mass/Vol] 178 mg/dL [email or web address] Other HbA1c (Bld) [Mass fraction]o n 02-03-2023 A1C HEMOGLOBIN [facility] Other Glucose - FINGER STICKon Glucose [Mass/Vol] 180 mg/dL [email or web address] Other CT lumbar spine w conon 10-17 CT lumbar spine w con [facility] [place] [address] [place] [address] CT Scan Report Signed Patient: Lesli Clay MR#: [id number] : 1960 Acct:[id number] Age/Sex: 62 / F ADM Date: 10/30/22 Loc: XD Room: Type: [facility] Attending Dr: Martine SANZ Copies [...] Mindy Tomas M.D.10/30/2022 4:11 PM Dictation Location: [place] [address] Transcribed By: [facility] 10/30/22 1611 Dictated By: Mindy Tomas II, MD 10/30/22 1602 Signed By: 10/30/22 1611 [facility] IR myelogram spine lumbosacr aby 10-30-2022 IR myelogram spine lumbosacral [facility] [place] [address] Interventional Radiology Rpt Signed Patient: Lesli Clay MR#: [id number] : 1960 Acct:[id number] Age/Sex: 62 / F ADM Date: 10/30/22 Loc: XD Room: Type: [facility] Attending Dr: Martine SANZ Copies [...] Mindy Tomas M.D.10/30/2022 3:59 PM Dictation Location: [place] [address] Transcribed By: [facility] 10/30/22 1553 Dictated By: Mindy Tomas II, MD 10/30/22 155 Signed By: 10/30/22 1551 [facility] A1C HEMOGLOBINon 10-03-2022 HbA1c (Bld) [Mass fraction] 8.3 % [email or web address] Other Glucose - FINGER STICKon Glucose [Mass/Vol] 211 mg/dL [email or web address] Other HbA1c (Bld) [Mass fraction]o n 10-03-2022 A1C HEMOGLOBIN invi Other Creatinine (Bld) [Mass/Vol]O rdered By: Martine Tobias on 09-19-2022 Creatinine [Mass/Vol] 0.7 mg/dL 0.6-1.3 [facility] Comment on above: ER/ESD physician is notified/shown all ISTAT results.Critical values may be confirmed by laboratory testing ifdeemed necessary by ER attending doctor. MR lumbar spine wo conon MR lumbar spine wo con [facility] [place] [address] [place] [address] MRI Report Signed Patient: Lesli Clay MR#: [id number] : 1960 Acct:[id number] Age/Sex: 62 / F ADM Date: 09/19/22 Loc: MR Room: Type: [facility] Attending Dr: Martine SANZ Copies [...] Mindy Tomas M.D.09/19/2022 4:07 PM Dictation Location: [place] [address] Transcribed By: [facility] 09/19/22 1607 Dictated By: Mindy Tomas II, MD 09/19/22 1600 Signed By: 09/19/22 1607 Normal [facility] XR lumbar spine 6V w bending on 08-18-2022 XR lumbar spine 6V w bending [facility] [place] [address] [place] [address] XRay Report Signed Patient: Lesli Clay MR#: [id number] : 1960 Acct:[id number] Age/Sex: 62 / F ADM Date: 08/18/22 Loc: XD Room: Type: [facility] Attending Dr: Martine KAMARAC Copies to: [facility] Parry Ordering Provider: [facility] [...] Dodson Jr., D.OGhulam08/18/2022 12:31 PM Dictation Location: [facility] Transcribed By: [facility] 08/18/22 1231 Dictated By: Noman Dodson Jr, DO 08/18/22 1230 Signed By: 08/18/22 1231 [facility] A1C HEMOGLOBINon 06-06-2022 HbA1c (Bld) [Mass fraction] 8.0 % [email or web address] Other Glucose - FINGER STICKon Glucose [Mass/Vol] 156 mg/dL [email or web address] Other HbA1c (Bld) [Mass fraction]o n 06-06-2022 A1C HEMOGLOBIN [facility] [employer] Other POINT OF CARE GLUCOSEon 05-17 Glucose [Mass/Vol] 185 mg/dL Critically high 74-106 [facility] Comment on above: Performed By: #### P OCGLUC #### [facility] [address] [place] [address] Dr. Keegan Neal A1C HEMOGLOBINon 03-06-2022 HbA1c (Bld) [Mass fraction] 7.8 % [facility] [employer] Other CREATININEon 03-06-2022 Creatinine [Mass/Vol] 0.82 mg/dL Normal 0.55-1.02 [facility] Comment on above: Performed By: #### C EJ #### [facility] [address] [address] [address] Keegan Neal EGFR-AF SAUDI ARABIAN >60 Normal >=60 [facility] Comment on above: Performed By: #### C EJ #### [facility] [address] [place] [address] [address] Keegan Neal EGFR-NON AF SAUDI ARABIAN >60 Normal >=60 [facility] Comment on above: Performed By: #### C EJ #### [facility] [address] [place], [place] [address] LSPINE WO W [...] by: BLANE THOMAS Date: 2022-03-06 11:22 Normal [facility] Glucose - FINGER STICKon Glucose [Mass/Vol] 200 mg/dL [email or web address] Other HbA1c (Bld) [Mass fraction]o n 03-06-2022 A1C HEMOGLOBIN invi Other A1C HEMOGLOBINon 10-28-2021 HbA1c (Bld) [Mass fraction] 7.0 % [email or web address] Other Glucose - FINGER STICKon Glucose [Mass/Vol] 110 mg/dL [email or web address] Other HbA1c (Bld) [Mass fraction]o n 10-28-2021 A1C HEMOGLOBIN invi Other A1C HEMOGLOBINon 07-04-2021 HbA1c (Bld) [Mass fraction] 6.6 % [email or web address] Other Glucose - FINGER STICKon Glucose [Mass/Vol] 110 mg/dL [email or web address] Other HbA1c (Bld) [Mass fraction]o n 07-04-2021 A1C HEMOGLOBIN invi Other A1C HEMOGLOBINon 11-21-2020 HbA1c (Bld) [Mass fraction] 6.0 % [email or web address] Other Glucose - FINGER STICKon Glucose [Mass/Vol] 98 mg/dL [email or web address] Other HbA1c (Bld) [Mass fraction]o n 11-21-2020 A1C HEMOGLOBIN invi Other Discharge Summaryon 09-26-19 Discharge Summary MR#: [id number] Admitted: 09/08/2016 Discharged: [...] 09/24/2016/02:52 P/Que Cano M.D.Date Trans: 09/25/2016 08:08 A/Nigel_JN:[id number] cc: Rosales Taylor M.D. [address] [facility] [address] Normal [facility] KNEE RIGHT 3 [facility] 7 KNEE RIGHT 3 [facility] [address] [place] [address] P atient Name: LESLI CLAY : 1Sex: FAge: Race: WhiteMRN: [id number]. Location: 84Patient Status: Date: 09/25/2016 8:15:00 AMCompleted Date: 09/25/2016 08:22 AMRequesting Provider: QUE BLAKE Attending Provider: Report Copy To: Signs & Symptoms: Z96.651 Presence of right artificial knee joint [id number]: [employer]Comments: , , , Ordering Provider - QUE BLAKE MD , Exam: KNEE RIGHT 3 VWSAccession #: [id number] ======KNEE RIGHT 3 VWS 09/25/2016 8:22 AM [...] changes. Electronically signed by:Mindy Tomas. Transcribed by: [email or web address], User Resident: Electronically Signed by: MINDY TOMAS @ 09/25/2016 04:44 PM Normal [facility] Comment on above: Order Comment: , , = ========= , Ordering Provider - QUE BLAKE MD , Consultationon 09-21-2016 Consultation MR[id number]: [facility] Date of [...] September 23, 2016, with Dr. Blake. In [facility], she was placed in a hinged knee brace to prevent flexion of theknee. She was given renewal of Keflex. We prescribed [place] for pain controland we applied an Armando wrap for edema control.Reviewed By:Desmond Mena MD 09/22/2016 08:26 AElectronically Signed by:Martin Fonseca MD 09/25/2016 03:22 P ___Martin Fonseca MD I was not present but assume all responsibility for the exam. NOTBILLABLEDate Dict: 09/21/2016/10:51 A/Desmond Mena, MDDate Trans: 09/21/2016 11:52 A/mmoDN_JN:[id number] cc: Rosales Taylor M.D. [address] [facility] [address] Normal [facility] BASIC METABOLIC PANELon Calcium 9.6 mg/dL Normal 8.6-10.3 [facility] Comment on above: Performed By: #### 0 0071 ####[facility] [place] [address], [facility] Chloride 99 mmol/L Normal 98-107 [facility] Comment on above: Performed By: #### 0 0071 ####[facility] [place] [address], [facility] CO2 29 mmol/L Normal 21-31 [facility] Comment on above: Performed By: #### 0 0071 ####[facility] [place] [address], [facility] Creatinine 0.91 mg/dL Normal 0.60-1.20 [facility] Comment on above: Performed By: #### 0 0071 ####[facility] [place] [address], [place] eGFR (black) mL/min/{1.73_m2} Normal >60 [facility] Comment on above: Performed By: #### 0 0071 ####[facility] [facility] [place] [address], [place] eGFR (non-black) mL/min/{1.73_m2} Normal >60 Th e [facility] Comment on above: Performed By: #### 0 0071 ####[facility] [place] [address], [place] Glucose mass conc 151 mg/dL High 70-100 [facility] Comment on above: Performed By: #### 0 0071 ####[facility] Potassium molar conc 4.0 mmol/L Normal 3.5-5.1 [facility] Comment on above: Performed By: #### 0 0071 ####[facility] Sodium 137 mmol/L Normal 136-145 [facility] Comment on above: Performed By: #### 0 0071 ####[facility] Urea nitrogen 13 mg/dL Normal 7-25 [facility] Comment on above: Performed By: #### 0 0071 ####[facility] C REACTIVE PROTEINon 017 C reactive protein (CRP) 28.5 mg/L High 0.0-7.0 [facility] Comment on above: Performed By: #### 0 0071 ####[facility] CBC W/DIFFon 09-20-2016 Basophils Auto #/vol (Bld) 0.5 % Normal 0.0-2.0 [facility] Comment on above: Performed By: #### 0 0071 ####[facility] Eosinophils/100 leukocytes 2.1 % Normal 0.0-5.0 [facility] Comment on above: Performed By: #### 0 0071 ####[facility] Erythrocyte distribution width Auto Ratio (RBC) 17.1 % High 11.5-16.9 [facility] Comment on above: Performed By: #### 0 0071 ####[facility] Erythrocytes (RBC) 3.39 mill/mm3 Low 3.50-5.50 [facility] Comment on above: Performed By: #### 0 0071 ####[facility] Hematocrit (HCT) 31.4 % Low 36.0-48.0 [facility] Comment on above: Performed By: #### 0 0071 ####[address] Hemoglobin mass conc (Bld) 10.3 g/dL Low 12.0-15.0 [facility] Comment on above: Performed By: #### 0 0071 ####[place] [id number] [address] Lymphocytes/100 leukocytes 19.8 % Low 20.0-40.0 [facility] Comment on above: Performed By: #### 0 0071 ####[place] [address] [address] MCH 30.3 pg Normal 24.0-32.0 [facility] Comment on above: Performed By: #### 0 0071 ####[place] [address] [address] MCHC mass conc (RBC) 32.7 g/dL Normal 32.0-36.0 [facility] Comment on above: Performed By: #### 0 0071 ####[address] MCV 92.6 fL Normal 80.0-100.0 [facility] Comment on above: Performed By: #### 0 0071 ####[facility] METHOD Normal [facility] Comment on above: Result Comment: Auto mated differential performedNormal RBC Morphology Performed By: #### 0 0071 ####[facility] [facility] [place] [address], [facility] MONOS 5.8 % Normal 2-8 [facility] Comment on above: Performed By: #### 0 0071 ####[facility] [facility].[address] Neutrophils/100 leukocytes 71.8 % High 50-70 [facility] Comment on above: Performed By: #### 0 0071 ####[facility] [facility] [place] [address], [facility] PLAT CNT 400 Thou/mm3 Normal 100-400 [facility] Comment on above: Performed By: #### 0 0071 ####[facility] [facility].[address] WBC (Leukocytes) 10.6 Thou/mm3 High 4.0-10.0 [facility] Comment on above: Performed By: #### 0 0071 ####[facility] [facility].[address] SEDIMENTATION RATEon 08-05-2 017 SED RATE 107 mm/hr High 0-20 [facility] Comment on above: Performed By: #### 0 0071 ####[facility] [facility].[address] POC GLUCOSE LABon 09-15-2016 Glucose mass conc 187 mg/dL High 70-100 [facility] Comment on above: Performed By: #### 0 0071 ####[facility] [place] [address].[address] Glucose mass conc 153 mg/dL High 70-100 [facility] Comment on above: Performed By: #### 5 6101, 52766 ####[facility] [place] [address], [place] POC GLUCOSE LABon 09-14-2016 Glucose mass conc 198 mg/dL High 70-100 [facility] Comment on above: Performed By: #### 5 610, 27537 ####[facility] [place] [address], [place] Glucose mass conc 188 mg/dL High 70-100 [facility] Comment on above: Performed By: #### 5 610, 93675 ####[facility] [place] [address], [place] Glucose mass conc 192 mg/dL High 70-100 [facility] Comment on above: Performed By: #### 5 610, 84915 ####[facility] [place] [address], [place] Glucose mass conc 155 mg/dL High 70-100 [facility] Comment on above: Performed By: #### 5 6100, 22743 ####[facility] [place] [address], [place] POC GLUCOSE LABon 09-13-2016 Glucose mass conc 223 mg/dL High 70-100 [facility] Comment on above: Performed By: #### 5 610, 00470 ####[facility] [place] [address], [place] Glucose mass conc 212 mg/dL High 70-100 [facility] Comment on above: Performed By: #### 5 610, 05964 ####[facility] [place] [address], [place] Glucose mass conc 111 mg/dL High 70-100 [facility] Comment on above: Performed By: #### 5 610, 94932 ####[facility] [place] [address], [place] Glucose mass conc 199 mg/dL High 70-100 [facility] Comment on above: Performed By: #### 5 610, 02493 ####[facility] [place] [address], [place] Glucose mass conc 149 mg/dL High 70-100 [facility] Comment on above: Performed By: #### 5 6100, 17647 ####[facility] [place] [address], [place] POC GLUCOSE LABon 09-12-2016 Glucose mass conc 205 mg/dL High 70-100 The [facility] Comment on above: Performed By: #### 5 6100, 79358 ####[facility] [place] [address], [place] Glucose mass conc 132 mg/dL High 70-100 The [facility] Comment on above: Performed By: #### 5 6100, 34959 ####[facility] [place] [address], [place] Glucose mass conc 184 mg/dL High 70-100 The [facility] Comment on above: Performed By: #### 5 6100, 62347 ####[facility] [facility] [place] [address], [place] Glucose mass conc 158 mg/dL High 70-100 The [facility] Comment on above: Performed By: #### 5 6100, 21103 ####[facility] [place] [address], [place] POC GLUCOSE LABon 09-11-2016 Glucose mass conc 194 mg/dL High 70-100 The [facility] Comment on above: Performed By: #### 5 610, 77632 ####[facility] [place] [address], [place] Glucose mass conc 192 mg/dL High 70-100 [facility] Comment on above: Performed By: #### 5 6101, 10305 ####[facility] [facility] [place] [address], [facility] Glucose mass conc 221 mg/dL High 70-100 The [facility] Comment on above: Performed By: #### 5 610, [id number] ####[facility] [facility] [place] [address], [facility] Glucose mass conc 147 mg/dL High 70-100 The [facility] Comment on above: Performed By: #### 5 610, 82791 ####[facility] [facility] [place] [address], [facility] POC GLUCOSE LABon 09-10-2016 Glucose mass conc 224 mg/dL High 70-100 The [facility] Comment on above: Performed By: #### 5 610, 89943 ####[facility] [facility] [place] [address], [facility] Glucose mass conc 156 mg/dL High 70-100 The [facility] Comment on above: Performed By: #### 1 0008 ####[facility] [facility] [place] [address], [facility] Glucose mass conc 240 mg/dL High 70-100 The [facility] Comment on above: Performed By: #### 1 0008 ####[facility] [facility] [place] [address], [facility] Glucose mass conc 171 mg/dL High 70-100 The [facility] Comment on above: Performed By: #### 1 0008 ####[facility] [facility] [place] [address], [facility] BASIC METABOLIC PANELon 07- Calcium 8.4 mg/dL Low 8.6-10.3 The [facility] Comment on above: Order Comment: No: D o not add to previous draw Performed By: #### 1 0008 ####[facility] [place] [address], [facility] Chloride 99 mmol/L Normal 98-107 The [facility] Comment on above: Order Comment: No: D o not add to previous draw Performed By: #### 1 0008 ####[facility] [place] [address], [facility] CO2 27 mmol/L Normal 21-31 The [facility] Comment on above: Order Comment: No: D o not add to previous draw Performed By: #### 1 0008 ####[facility] [place] [address], [facility] Creatinine 1.11 mg/dL Normal 0.60-1.20 The [facility] Comment on above: Order Comment: No: D o not add to previous draw Performed By: #### 1 0008 ####[facility] [place] [address], [facility] eGFR (black) mL/min/{1.73_m2} Normal >60 The [facility] Comment on above: Order Comment: No: D o not add to previous draw Performed By: #### 1 0008 ####[facility] [place] [address], [facility] eGFR (non-black) 51 ml/min/1.73sq m Abnormal >60 The [facility] Comment on above: Order Comment: No: D o not add to previous draw Performed By: #### 1 0008 ####[facility] [place] [address], [facility] Glucose mass conc 161 mg/dL High 70-100 The [facility] Comment on above: Order Comment: No: D o not add to previous draw Performed By: #### 1 0008 ####[facility] [id number], [facility] Potassium molar conc 4.2 mmol/L Normal 3.5-5.1 The [facility] Comment on above: Order Comment: No: D o not add to previous draw Performed By: #### 1 0008 ####[facility] [facility].[address] Sodium 134 mmol/L Low 136-145 The [facility] Comment on above: Order Comment: No: D o not add to previous draw Performed By: #### 1 0008 ####[facility] [place] [address] Urea nitrogen 24 mg/dL Normal 7-25 The [facility] Comment on above: Order Comment: No: D o not add to previous draw Performed By: #### 1 0008 ####[facility] CBC W/DIFFon 09-09-2016 Basophils Auto #/vol (Bld) 0.2 % Normal 0.0-2.0 The [facility] Comment on above: Order Comment: No: D o not add to previous draw Performed By: #### 1 0008 ####[place] [id number] [facility].[address] Eosinophils/100 leukocytes 1.0 % Normal 0.0-5.0 The [facility] Comment on above: Order Comment: No: D o not add to previous draw Performed By: #### 1 0008 ####[address] Erythrocyte distribution width Auto Ratio (RBC) 16.9 % Normal 11.5-16.9 The [facility] Comment on above: Order Comment: No: D o not add to previous draw Performed By: #### 1 0008 ####[address] Erythrocytes (RBC) 3.31 mill/mm3 Low 3.50-5.50 The [facility] Comment on above: Order Comment: No: D o not add to previous draw Performed By: #### 1 0008 ####[facility] Hematocrit (HCT) 30.7 % Low 36.0-48.0 [facility] Comment on above: Order Comment: No: D o not add to previous draw Performed By: #### 1 0008 ####[facility] [facility].[address] Hemoglobin mass conc (Bld) 10.0 g/dL Low 12.0-15.0 [facility] Comment on above: Order Comment: No: D o not add to previous draw Performed By: #### 1 0008 ####[place] [id number] Lymphocytes/100 leukocytes 25.6 % Normal 20.0-40.0 [facility] Comment on above: Order Comment: No: D o not add to previous draw Performed By: #### 1 0008 ####[facility] MCH 30.3 pg Normal 24.0-32.0 [facility] Comment on above: Order Comment: No: D o not add to previous draw Performed By: #### 1 0008 ####[facility] MCHC mass conc (RBC) 32.7 g/dL Normal 32.0-36.0 The [facility] Comment on above: Order Comment: No: D o not add to previous draw Performed By: #### 1 0008 ####[address] MCV 92.7 fL Normal 80.0-100.0 [facility] Comment on above: Order Comment: No: D o not add to previous draw Performed By: #### 1 0008 ####[facility] [place] [address], [place] METHOD Normal The [facility] Comment on above: Order Comment: No: D o not add to previous draw Result Comment: Auto mated differential performedNormal RBC Morphology Performed By: #### 1 0008 ####[facility] [place] [address], [place] MONOS 6.9 % Normal 2-8 [facility] Comment on above: Order Comment: No: D o not add to previous draw Performed By: #### 1 0008 ####[facility] [place] [address], [place] Neutrophils/100 leukocytes 66.3 % Normal 50-70 The [facility] Comment on above: Order Comment: No: D o not add to previous draw Performed By: #### 1 0008 ####[facility] [place] [address], [place] PLAT CNT 304 Thou/mm3 Normal 100-400 The [facility] Comment on above: Order Comment: No: D o not add to previous draw Performed By: #### 1 0008 ####[facility] [place] [address], [place] WBC (Leukocytes) 8.7 Thou/mm3 Normal 4.0-10.0 The [facility] Comment on above: Order Comment: No: D o not add to previous draw Performed By: #### 1 0008 ####[facility] [place] [address], [facility] Operative Reporton 7 Operative Report MR#: [id number] [facility] Name[facility] Lesli Clay Room #: [id number] Discharge Date: Birthdate: 1960 OPERATIVE REPORTDATE OF [...] 09/08/2016/08:19 P/Que Cano M.D.Date Trans: 09/09/2016 04:17 A/Nigel_JN:[id number] cc: Rosales Taylor M.D. [address] [facility] [address] Normal The [facility] POC GLUCOSE LABon 09-09-2016 Glucose mass conc 229 mg/dL High 70-100 The [facility] Comment on above: Performed By: #### 1 0008 ####[facility] [facility] [place] [address], [facility] Glucose mass conc 159 mg/dL High 70-100 The [facility] Comment on above: Performed By: #### 1 0008 ####[facility] [facility] [place] [address], [facility] Glucose mass conc 182 mg/dL High 70-100 The [facility] Comment on above: Performed By: #### 1 0008 ####[facility] [facility] [place] [place] [address], [place] Glucose mass conc 159 mg/dL High 70-100 The [facility] Comment on above: Performed By: #### 1 0008 ####[facility] [facility] [place] [address], [place] Glucose mass conc 172 mg/dL High 70-100 The [facility] Comment on above: Performed By: #### 1 0008 ####[facility] [facility] [place] [address], [place] POC GLUCOSE LABon 09-08-2016 Glucose mass conc 175 mg/dL High 70-100 The [facility] Comment on above: Performed By: #### 8 5499 ####[facility] [facility] [place] [place] [address], [facility] Glucose mass conc 165 mg/dL High 70-100 The [facility] Comment on above: Performed By: #### 8 5499 ####[facility] [facility] [place] [address], [place] Glucose mass conc 173 mg/dL High 70-100 The [facility] Comment on above: Performed By: #### 8 5499 ####[facility] [facility] [place] [address], [facility] PORTABLE KNEE RIGHT 2 [facility] 09-08-2016 PORTABLE KNEE RIGHT 2 [facility] [place] [id number] P atient Name: PHILLYVIOLETALESLI : 1960ex: FAge: Race: WhiteMRN: [id number]. Location: OUTPPatient Status: OVisit #: [id number] Date: 09/08/2016 2:05:00 PMCompleted Date: 09/08/2016 02:45 PMRequesting Provider: QUE CANO Attending Provider: QUE BLAKE Report Copy To: Signs & Symptoms: Pain ( specify Location)History: Patient history not availableComments: Hardware Evaluation, please do in PACUExam: PORTABLE KNEE RIGHT 2 VWSAccession #: [id number] ======PORTABLE KNEE RIGHT 2 VWS 09/08/2016 2:45 [...] arthroplasty Electronically signed by:Joan Cormier. Transcribed by: [email or web address], User Resident: Electronically Signed by: JOAN CORMIER @ 09/08/2016 02:48 PM Normal The [facility] Comment on above: Order Comment: Hardw are Evaluation, please do in PACU APTTon 08-25-2016 aPTT 33.0 s Normal 25.0-35.0 [facility] Comment on above: Result Comment: ALL RESULTS [...] THIS PURPOSE. Performed By: #### 5 6101, 31261 ####[facility] [place] [id number], [facility] BASIC METABOLIC PANELon 07-1 Calcium 9.9 mg/dL Normal 8.6-10.3 [facility] Comment on above: Performed By: #### 0 0071 ####[facility] [place] [address], [facility] Chloride 96 mmol/L Low 98-107 The [facility] Comment on above: Performed By: #### 0 0071 ####[facility] [facility] [place] [place] [address], [facility] CO2 29 mmol/L Normal 21-31 [facility] Comment on above: Performed By: #### 0 0071 ####[facility] [facility] [place] [place] [address], [facility] Creatinine 0.94 mg/dL Normal 0.60-1.20 [facility] Comment on above: Performed By: #### 0 0071 ####[facility] [facility] [place] [place] [address], [facility] eGFR (black) mL/min/{1.73_m2} Normal >60 The [facility] Comment on above: Performed By: #### 0 0071 ####[facility] [facility] [place] [place] [address], [facility] eGFR (non-black) mL/min/{1.73_m2} Normal >60 [facility] Comment on above: Performed By: #### 0 0071 ####[facility] [facility] [place] [place] [address], [place] Glucose mass conc 128 mg/dL High 70-100 The [facility] Comment on above: Performed By: #### 0 0071 ####[facility] [place] [address], [place] Potassium molar conc 4.0 mmol/L Normal 3.5-5.1 [facility] Comment on above: Performed By: #### 0 1 ####[facility] [facility].[address] Sodium 135 mmol/L Low 136-145 [facility] Comment on above: Performed By: #### 0 1 ####[facility] [facility].[address] Urea nitrogen 15 mg/dL Normal 7-25 [facility] Comment on above: Performed By: #### 0 1 ####[facility] [facility].[address] CBC W/DIFFon 08-25-2016 Basophils Auto #/vol (Bld) 0.2 % Normal 0.0-2.0 [facility] Comment on above: Performed By: #### 102 ####[place] [id number] [facility].[address] Eosinophils/100 leukocytes 1.6 % Normal 0.0-5.0 [facility] Comment on above: Performed By: #### 102 ####[place] [id number] [facility].[address] Erythrocyte distribution width Auto Ratio (RBC) 16.9 % Normal 11.5-16.9 [facility] Comment on above: Performed By: #### 5 102 ####[facility] [facility].[address] Erythrocytes (RBC) 4.18 mill/mm3 Normal 3.50-5.50 [facility] Comment on above: Performed By: #### 5 102 ####[facility] [facility].[address] Hematocrit (HCT) 38.2 % Normal 36.0-48.0 [facility] Comment on above: Performed By: #### 102 ####[facility] [place], [place] [address], [place] [address], [facility] Hemoglobin mass conc (Bld) 12.5 g/dL Normal 12.0-15.0 [facility] Comment on above: Performed By: #### 5 0103 ####[facility] [place] [address], [facility] Lymphocytes/100 leukocytes 21.4 % Normal 20.0-40.0 [facility] Comment on above: Performed By: #### 5 0103 ####[facility] [place] [address], [facility] MCH 29.9 pg Normal 24.0-32.0 [facility] Comment on above: Performed By: #### 5 0103 ####[facility] [facility] [place] [place] [address], [facility] MCHC mass conc (RBC) 32.7 g/dL Normal 32.0-36.0 [facility] Comment on above: Performed By: #### 5 0103 ####[facility] [facility] [place] [place] [address], [facility] MCV 91.4 fL Normal 80.0-100.0 [facility] Comment on above: Performed By: #### 5 0103 ####[facility] [facility] [place] [place] [address], [facility] METHOD Normal [facility] Comment on above: Result Comment: Auto mated differential performedNormal RBC Morphology Performed By: #### 5 0103 ####[facility] [facility] [place] [place] [address], [facility] MONOS 5.2 % Normal 2-8 [facility] Comment on above: Performed By: #### 5 0103 ####[facility] [place] [address], [facility] Neutrophils/100 leukocytes 71.6 % High 50-70 [facility] Comment on above: Performed By: #### 5 0103 ####[facility] [facility] [place] [address], [facility] PLAT CNT 351 Thou/mm3 Normal 100-400 [facility] Comment on above: Performed By: #### 5 0103 ####[facility] [facility] [place] [address], [facility] WBC (Leukocytes) 12.0 Thou/mm3 High 4.0-10.0 [facility] Comment on above: Performed By: #### 5 0103 ####[facility] [facility].[address] PROTHROMBIN TIMEon 7 INR Coag RelTime (PPP) 0.97 {INR} Normal 0.91-1.16 [facility] Comment on above: Result Comment: ACCC P RECOMMENDED INR FOR WARFARIN THERAPY CONDITION INRPROPHYLAXIS OF VENOUS THROMBOSIS 2-3(HIGH-RISK SURGERY)TREATMENT OF VENOUS THROMBOSIS 2-3TREATMENT OF PULMONARY EMBOLISM 2-3PREVENTION OF SYSTEMIC EMBOLISM: 2-3 ACUTE MYOCARDIAL INFARCTION TISSUE HEART VALVES VALVULAR HEART DISEASE ATRIAL FIBRILLATION RECURRENT SYSTEMIC EMBOLISMMECHANICAL HEART VALVE 2.5-3.5 FROM: ORAL ANTICOAGULANTS. MECHANISM OF ACTION, CLINICALEFFECTIVENESS, AND OPTIMAL THERAPEUTIC RANGE. [id number]. Performed By: #### 5 6101, 74745 ####[facility] [facility].[address] Prothrombin time (PT) Coag time (PPP) 12.9 s Normal 12.3-14.8 [facility] Comment on above: Result Comment: ALL RESULTS MUST BE INTERPRETED WITH RESPECT TO BLOOD DRAWING ARTIFACTOR DILUTION ERROR OF ANTICOAGULANT AT THE TIME OF SAMPLING. Performed By: #### 5 6101, 50155 ####[facility] [place] [address], [facility] TYPE AND SCREENon 08-25-2016 ABO INTERPRETATION O Normal [facility] Comment on above: Performed By: #### 6 2586 ####[facility] [place] [address], [facility] ANTIBODY SCREEN Negative Normal [facility] Comment on above: Performed By: #### 6 2586 ####[facility] [place] [address], [place] RH INTERPRETATION Positive Normal The [facility] Comment on above: Performed By: #### 6 2586 ####[facility] [place] [address], [place] URINALYSISon 08-25-2016 Bilirubin (total) Negative Normal NEGATIVE The [facility] Comment on above: Performed By: #### 1 0008 ####[facility] [facility] [place] [place] [address], [place] BLOOD MODERATE Abnormal NEGATIVE [facility] Comment on above: Performed By: #### 1 0008 ####[facility] [place] [address], [place] EPIS MOD Abnormal FEW [facility] Comment on above: Performed By: #### 1 0008 ####[facility] [facility] [place] [place] [address], [place] Erythrocytes (RBC) 3-5 Abnormal 0-0 [facility] Comment on above: Performed By: #### 1 0008 ####[facility] [place] [address], [place] Glucose mass conc Negative Normal NEGATIVE The [facility] Comment on above: Performed By: #### 1 0008 ####[facility] [place] [address], [place] KETONE Negative Normal NEGATIVE [facility] Comment on above: Performed By: #### 1 0008 ####[facility] [facility] [place] [place] [address], [facility] LEUK ZEYNEP TRACE Abnormal NEGATIVE [facility] Comment on above: Performed By: #### 1 0008 ####[facility] [facility] [place] [place] [address], [facility] pH of blood 7.0 [pH] Normal 5.0-8.0 [facility] Comment on above: Performed By: #### 1 0008 ####[facility] [facility] [place] [address], [facility] Protein Negative Normal NEGATIVE [facility] Comment on above: Performed By: #### 1 0008 ####[facility] [facility] [place] [address], [facility] SPEC GRAV 1.006 Low 1.015-1.020 [facility] Comment on above: Performed By: #### 1 0008 ####[facility] [facility] [place] [address], [facility] Urine, appearance CLEAR Normal CLEAR The [facility] Comment on above: Performed By: #### 1 0008 ####[facility] [place] [address], [place] Urine, bacteria in sediment MANY Abnormal NONE SEEN [facility] Comment on above: Performed By: #### 1 0008 ####[facility] [place] [address], [place] Urine, color STRAW Abnormal YELLOW [facility] Comment on above: Performed By: #### 1 0008 ####[facility] [facility] [place] [address], [facility] Urine, nitrite presence Negative Normal NEGATIVE [facility] Comment on above: Performed By: #### 1 0008 ####[facility] [facility] [place] [place] [address], [facility] WBC UA 11-20 Abnormal 0-0 [facility] Comment on above: Performed By: #### 1 0008 ####[facility] [facility], [place] [id number] [place] [address] Vital Signs Date Time Vital Sign Value Performing Clinician Facility 05-11-2023 11:54-0400 Body height 160.02 cm [facility] 05-11-2023 11:54-0400 Body mass index (BMI) [Ratio] 51.5 kg/m2 [facility] 05-11-2023 11:54-0400 Body weight 132.05 kg [facility] 05-11-2023 11:54-0400 Diastolic blood pressure 83 mm[Hg] [facility] 05-11-2023 11:54-0400 Heart rate 74 /min [facility] 05-11-2023 11:54-0400 Respiratory rate 20 /min [facility] 05-11-2023 11:54-0400 SaO2% (BldA) [Mass fraction] 98 % [facility] 05-11-2023 11:54-0400 Systolic blood pressure 139 mm[Hg] [facility] 04-07-2023 09:09-0500 Body height 160.02 cm DO Kaile Rumschlag Work Phone: [facility] 04-07-2023 09:09-0500 Body mass index (BMI) [Ratio] 52.6 kg/m2 DO Kalie Rumschlag Work Phone: [facility] 04-07-2023 09:09-0500 Body weight 134.83 kg DO Kalie Rumschlag Work Phone: [facility] 04-07-2023 09:09-0500 Diastolic blood pressure 82 mm[Hg] DO Kalie Rumschlag Work Phone: [facility] 04-07-2023 09:09-0500 Heart rate 80 /min DO Kalie Rumschlag Work Phone: [facility] 04-07-2023 09:09-0500 Respiratory rate 20 /min DO Kalie Rumschlag Work Phone: [facility] 04-07-2023 09:09-0500 SaO2% (BldA) [Mass fraction] 93 % DO Kalie Rumschlag Work Phone: [facility] 04-07-2023 09:09-0500 Systolic blood pressure 130 mm[Hg] DO Kalie Rumschlag Work Phone: [facility] 02-03-2023 08:45-0500 Body height 160.02 cm Lili Scally Other [facility] 02-03-2023 08:45-0500 Body mass index (BMI) [Ratio] 52.61 kg/m2 Lili Scally Other [employer] Other 02-03-2023 08:45-0500 Body weight 134.72 kg Lili Scally Other [employer] Other 02-03-2023 08:45-0500 Body weight 134.71 kg DO Kalie Rumschlag Work Phone: [facility] 02-03-2023 08:45-0500 Diastolic blood pressure Lili Scally Other [employer] Other 02-03-2023 08:45-0500 Respiratory rate 20 /min Lili Scally Other [employer] Other 02-03-2023 08:45-0500 SaO2% (BldA) [Mass fraction] 94 % Lili Scally Other [employer] Other 02-03-2023 08:45-0500 Systolic blood pressure 144 mm[Hg] Lili Scally Other [employer] Other 11-26-2022 09:45-0400 Body height 160.02 cm Lili Scally Other [employer] Other 11-26-2022 09:45-0400 Body mass index (BMI) [Ratio] 51.37 kg/m2 Lili Scally Other [employer] Other 11-26-2022 09:45-0400 Body weight 131.54 kg Lili Scally Other [employer] Other 11-26-2022 09:45-0400 Diastolic blood pressure Lili Scally Other [employer] Other 11-26-2022 09:45-0400 Respiratory rate 20 /min Lili Scally Other [employer] Other 11-26-2022 09:45-0400 SaO2% (BldA) [Mass fraction] 96 % Lili Scally Other [employer] Other 11-26-2022 09:45-0400 Systolic blood pressure 124 mm[Hg] Lili Scally Other [employer] Other 11-25-2022 09:20-0400 Body height 160.02 cm Stoney Turner Other [employer] Other 11-25-2022 09:20-0400 Body mass index (BMI) [Ratio] 52.07 kg/m2 Stoney Turner Other [employer] Other 11-25-2022 09:20-0400 Body weight 133.36 kg Stoney Yue Other [employer] Other 10-30-2022 11:18-0400 Diastolic blood pressure 81 mm[Hg] DO Judith Amanda Work Phone: [facility] 10-30-2022 11:18-0400 Heart rate 94 /min DO Judith Amanda Work Phone: [facility] 10-30-2022 11:18-0400 Respiratory rate 18 /min DO Judith Amanda Work Phone: [facility] 10-30-2022 11:18-0400 SaO2% (BldA) [Mass fraction] 96 % DO Judith Amanda Work Phone: [facility] 10-30-2022 11:18-0400 Systolic blood pressure 159 mm[Hg] DO Judith Amanda Work Phone: [facility] 10-30-2022 09:52-0400 Body height 160.02 cm DO Judith Amanda Work Phone: [facility] 10-30-2022 09:52-0400 Body weight 126.55 kg DO Judith Amanda Work Phone: [facility] 10-09-2022 10:40-0400 Body height 160.02 cm Martine Tobias Other [employer] Other 10-09-2022 10:40-0400 Body mass index (BMI) [Ratio] 52.07 kg/m2 Martine Tobias Other [employer] Other 08-24-2023 10:40-0400 Body weight 133.36 kg Martine Tobias Other [employer] Other 10-09-2022 10:40-0400 Diastolic blood pressure 88 mm[Hg] Martine Tobias Other [employer] Other 10-09-2022 10:40-0400 Systolic blood pressure 154 mm[Hg] Martine Tobias Other [employer] Other 10-03-2022 09:15-0400 Body height 160.02 cm Lili Scally Other [employer] Other 10-03-2022 09:15-0400 Body mass index (BMI) [Ratio] 52.09 kg/m2 Lili Scally Other [employer] Other 10-03-2022 09:15-0400 Body weight 133.4 kg Lili Scally Other [employer] Other 10-03-2022 09:15-0400 Diastolic blood pressure 88 mm[Hg] Lili Scally Other [employer] Other 10-03-2022 09:15-0400 Respiratory rate 20 /min Lili Scally Other [employer] Other 10-03-2022 09:15-0400 SaO2% (BldA) [Mass fraction] 65 % Lili Scally Other [employer] Other 10-03-2022 09:15-0400 Systolic blood pressure 143 mm[Hg] Lili Scally Other [employer] Other 09-19-2022 13:49-0400 Diastolic blood pressure 109 mm[Hg] DO Kalie Rumschlag Work Phone: [facility] 09-19-2022 13:49-0400 Heart rate 94 /min DO Kalie Rumschlag Work Phone: [facility] 09-19-2022 13:49-0400 Respiratory rate 20 /min DO Kalie Rumschlag Work Phone: [facility] 09-19-2022 13:49-0400 SaO2% (BldA) [Mass fraction] 96 % DO Kalie Rumschlag Work Phone: [facility] 09-19-2022 13:49-0400 Systolic blood pressure 209 mm[Hg] DO Kalie Rumschlag Work Phone: [facility] 09-19-2022 13:42-0400 Body height 162.56 cm DO Kalie Rumschlag Work Phone: [facility] 09-19-2022 13:42-0400 Body weight 124.73 kg DO Kalie Rumschlag Work Phone: [facility] 08-12-2022 09:40-0400 Body height 160.02 cm Martine Tobias Other [employer] Other 08-12-2022 09:40-0400 Body mass index (BMI) [Ratio] 50.62 kg/m2 Martine Tobias Other [employer] Other 08-12-2022 09:40-0400 Body weight 129.64 kg Martine Tobias Other [employer] Other 08-12-2022 09:40-0400 Diastolic blood pressure 86 mm[Hg] Martine Tobias Other [employer] Other 08-12-2022 09:40-0400 Systolic blood pressure 150 mm[Hg] Martine Tobias Other [employer] Other 08-01-2022 09:15-0400 Body height 160.02 cm Lili Scally Other [employer] Other 08-01-2022 09:15-0400 Body mass index (BMI) [Ratio] 50.62 kg/m2 Lili Scally Other [employer] Other 08-01-2022 09:15-0400 Body weight 129.64 kg Lili Scally Other [employer] Other 08-01-2022 09:15-0400 Diastolic blood pressure 84 mm[Hg] Lili Scally Other [employer] Other 08-01-2022 09:15-0400 Respiratory rate 18 /min Lili Scally Other [employer] Other 08-01-2022 09:15-0400 SaO2% (BldA) [Mass fraction] 95 % Lili Scally Other [employer] Other 08-01-2022 09:15-0400 Systolic blood pressure 130 mm[Hg] Lili Scally Other [employer] Other 06-06-2022 10:45-0400 Body height 160.02 cm Lili Scally Other [employer] Other 06-06-2022 10:45-0400 Body mass index (BMI) [Ratio] 50.43 kg/m2 Lili Scally Other [employer] Other 06-06-2022 10:45-0400 Body weight 129.14 kg Lili Scally Other [employer] Other 06-06-2022 10:45-0400 Diastolic blood pressure 76 mm[Hg] Lili Scally Other [employer] Other 06-06-2022 10:45-0400 Respiratory rate 18 /min Lili Scally Other [employer] Other 06-06-2022 10:45-0400 SaO2% (BldA) [Mass fraction] 96 % Lili Scally Other [employer] Other 06-06-2022 10:45-0400 Systolic blood pressure 131 mm[Hg] Lili Scally Other [employer] Other 03-06-2022 14:45-0500 Body height 160.02 cm Lili Scally Other [employer] Other 03-06-2022 14:45-0500 Body mass index (BMI) [Ratio] 46.81 kg/m2 Lili Scally Other [employer] Other 03-06-2022 14:45-0500 Body weight 119.89 kg Lili Scally Other [employer] Other 03-06-2022 14:45-0500 Diastolic blood pressure 72 mm[Hg] Lili Scally Other [employer] Other 03-06-2022 14:45-0500 Respiratory rate 18 /min Lili Scally Other [employer] Other 03-06-2022 14:45-0500 SaO2% (BldA) [Mass fraction] 96 % Lili Scally Other [employer] Other 03-06-2022 14:45-0500 Systolic blood pressure 112 mm[Hg] Lili Scally Other [employer] Other 10-28-2021 11:15-0400 Body height 160.02 cm Lili Scally Other [employer] Other 10-28-2021 11:15-0400 Body mass index (BMI) [Ratio] 45.49 kg/m2 Lili Scally Other [employer] Other 10-28-2021 11:15-0400 Body weight 116.48 kg Lili Scally Other [employer] Other 10-28-2021 11:15-0400 Diastolic blood pressure 83 mm[Hg] Lili Scally Other [employer] Other 10-28-2021 11:15-0400 Respiratory rate 18 /min Lili Scally Other [employer] Other 10-28-2021 11:15-0400 SaO2% (BldA) [Mass fraction] 97 % Lili Scally Other [employer] Other 10-28-2021 11:15-0400 Systolic blood pressure 133 mm[Hg] Lili Scally Other [employer] Other 07-04-2021 09:15-0400 Body height 160.02 cm Lili Scally Other [employer] Other 07-04-2021 09:15-0400 Body mass index (BMI) [Ratio] 45.79 kg/m2 Lili Scally Other [employer] Other 07-04-2021 09:15-0400 Body weight 117.26 kg Lili Scally Other [employer] Other 07-04-2021 09:15-0400 Diastolic blood pressure 83 mm[Hg] Lili Scally Other [employer] Other 07-04-2021 09:15-0400 Respiratory rate 18 /min Lili Scally Other [employer] Other 07-04-2021 09:15-0400 SaO2% (BldA) [Mass fraction] 96 % Lili Scally Other [employer] Other 07-04-2021 09:15-0400 Systolic blood pressure 125 mm[Hg] Lili Scally Other [employer] Other 11-21-2020 10:30-0400 Body height 160.02 cm Clifford Munoz Jr. Other [employer] Other 11-21-2020 10:30-0400 Body mass index (BMI) [Ratio] 46.97 kg/m2 Clifford Munoz Jr. Other [employer] Other 11-21-2020 10:30-0400 Body weight 120.29 kg Clifford Munoz Jr. Other [employer] Other 11-21-2020 10:30-0400 Diastolic blood pressure 76 mm[Hg] Clifford Munoz . Other [employer] Other 11-21-2020 10:30-0400 Respiratory rate 18 /min Clifford Munoz . Other [employer] Other 11-21-2020 10:30-0400 SaO2% (BldA) [Mass fraction] 97 % Clifford Worleychristian Gaona. Other [employer] Other 11-21-2020 10:30-0400 Systolic blood pressure 123 mm[Hg] Clifford Munoz . Other [employer] Other Encounters Encounter Date Encounter Type Care Provider Facility Start: 05-14-2023 End: 05-15-2023 ambulatory DEBORAH Not Available Start: 05-11-2023 End: 05-11-2023 ambulatory [facility] Work Phone: Start: 05-11-2023 End: 05-11-2023 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 procedure [facility] Work Phone: Start: 04-28-2023 End: 04-28-2023 ambulatory STEFANY JOSE Not Available Start: 04-22-2023 End: 04-22-2023 ambulatory JAYSON INGRAM Not Available Start: 04-22-2023 Non-patient / Non-visit [facility] Work Phone: Start: 04-21-2023 End: 04-21-2023 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 procedure [facility] Work Phone: Start: 04-16-2023 End: 04-16-2023 ambulatory STEFANY JOSE Not Available Start: 04-07-2023 ambulatory Lili Patricki ty:[facility] Start: 04-07-2023 End: 04-07-2023 ambulatory DO Kalie Rumschlag Work Phone: [facility] Work Phone: Start: 04-07-2023 End: 04-07-2023 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 procedure DO Kalie Rumschlag Work Phone: [facility] Work Phone: Start: 03-26-2023 End: 03-26-2023 ambulatory AKANKSHA Bloom KRISHAN [facility] Start: 03-04-2023 End: 03-04-2023 ambulatory Lili Aubrey Other [employer] Other Start: 03-04-2023 Telephone encounter Lili mat[facility]w [facility] Start: 02-10-2023 End: 02-10-2023 ambulatory JUDITH NEWMAN Not Available Start: 02-03-2023 (DM) Diabetes Lili Scalwinston Fab[facility] Start: 02-03-2023 End: 02-04-2023 ambulatory DO Kalie Rumschlag Work Phone: [employer] Other Start: 02-03-2023 End: 02-03-2023 Discharged Recurring DO Kalie Rumschlag Work Phone: [facility] Work Phone: Start: 02-03-2023 End: 02-03-2023 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 procedure DO Kalie Rumschlag Work Phone: [facility] Work Phone: Start: 01-26-2023 End: 01-26-2023 ambulatory Lili Aubrey Other [employer] Other Start: 01-26-2023 Telephone encounter Lili matthew [facility] Start: 01-15-2023 End: 01-15-2023 ambulatory BLANE FREDERICK Not Available Start: 01-15-2023 End: 01-15-2023 ambulatory JUDITH G AMANDA Not Available Start: 01-02-2023 End: 01-02-2023 ambulatory Lili Burgos Other [employer] Other Start: 01-02-2023 Telephone encounter Lili Airamwinston Bello t[facility] Start: 12-31-2022 End: 12-31-2022 ambulatory JUDITH G AMANDA Not Available Start: 11-26-2022 (DM) Diabetes Lili Airamwinston [facility] Start: 11-26-2022 End: 11-26-2022 ambulatory Lili Airamwinston Other [employer] Other Start: 11-25-2022 End: 11-25-2022 ambulatory Stoney Turner Other [employer] Other Start: 11-25-2022 Office outpatient ne w 30 minutes Stoney Turner [facility] Start: 11-12-2022 End: 11-12-2022 ambulatory Lili Burgos Other [employer] Other Start: 11-12-2022 Telephone encounter Lili Bello [facility] Start: 10-30-2022 End: 10-30-2022 ambulatory Martine Tobias Facility:[facility] Start: 10-30-2022 End: 10-30-2022 Admission to same day surgery center DO Judith Amanda Work Phone: [facility] [place] Work Phone: Start: 10-30-2022 End: 10-30-2022 ambulatory DO Judith G Amanda Work Phone: [facility] Work Phone: Start: 10-09-2022 End: 10-09-2022 ambulatory Martine Tobias Other [facility] [employer] Other Start: 10-09-2022 Office outpatient visit 25 minutes Martineselvin Tobias [facility] Start: 10-07-2022 End: 10-07-2022 ambulatory Martine Jatinder Facility:[facility] Start: 10-07-2022 End: 10-07-2022 ambulatory DO Judith G Amanda Work Phone: [facility] Work Phone: Start: 10-07-2022 End: 10-07-2022 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 procedure DO Judith Amanda Work Phone: [facility] Work Phone: Start: 10-03-2022 (DM) Diabetes Lili Sequeira [facility] Start: 10-03-2022 End: 10-03-2022 ambulatory Lili Burgos Other [facility] [employer] Other Start: 10-03-2022 Registered Recurring DO Judith Amanda Work Phone: [facility] Work Phone: Start: 09-26-2022 End: 09-26-2022 ambulatory Lili Burgos Other [facility] [employer] Other Start: 09-26-2022 Telephone encounter Lili matthew [facility] Start: 09-19-2022 End: 09-19-2022 ambulatory Martineselvin Tobias Facility:[facility] Start: 09-19-2022 End: 09-19-2022 ambulatory DO Kalie Rumschlag Work Phone: [facility] Work Phone: Start: 09-19-2022 End: 09-19-2022 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 procedure DO Kalie Rumschlag Work Phone: [facility] [place] Work Phone: Start: 08-18-2022 End: 08-18-2022 ambulatory Martine Tobias Facility:[facility] Start: 08-18-2022 End: 08-18-2022 ambulatory DO Kalie Rumschlag Work Phone: [facility] Work Phone: Start: 08-18-2022 End: 08-18-2022 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 procedure DO Kalie Rumschlag Work Phone: [facility] [place] Work Phone: Start: 08-12-2022 End: 08-12-2022 ambulatory Martineselvin Tobias Other [employer] Other Start: 08-12-2022 Office outpatient ne w 45 minutes Martine Tobias [facility] Start: 08-12-2022 Telephone encounter Lili matthew [facility] Start: 08-05-2022 End: 08-05-2022 ambulatory Lili Burgos Other [employer] Other Start: 08-05-2022 Telephone encounter Lili matthew [facility] Start: 08-01-2022 (DM) Diabetes Lili Sequeira [facility] Start: 08-01-2022 End: 08-01-2022 ambulatory Lili Burgos Other [employer] Other Start: 08-01-2022 Registered Recurring DO Kalie Rumschlag Work Phone: [facility] Work Phone: Start: 07-22-2022 End: 07-22-2022 ambulatory Lilihebert Burgos Other [employer] Other Start: 07-22-2022 Telephone encounter Lili matthe[facility] Start: 07-09-2022 End: 07-09-2022 ambulatory Lililillian Burgos Other [employer] Other Start: 07-09-2022 Telephone encounter Lilihebert daltons [facility] Start: 07-01-2022 End: 07-02-2022 [facility] Facility: Start: 06-20-2022 End: 06-21-2022 [facility] Facility: Start: 06-16-2022 End: 06-16-2022 ambulatory Lililillian Burgos Other [employer] Other Start: 06-16-2022 Telephone encounter Lili Aubrey [facility] Start: 06-06-2022 (DM) Diabetes Lili Aubrey [facility] Start: 06-06-2022 End: 06-06-2022 ambulatory Lililillian Burgos Other [employer] Other Start: 06-03-2022 End: 06-03-2022 ambulatory NARENDRANATH LAKSHMIPATHY . Facility: Start: 05-15-2022 End: 05-16-2022 [facility] Facility: Start: 05-13-2022 End: 05-13-2022 ambulatory Lili Burgos Other [employer] Other Start: 05-13-2022 Telephone encounter Lili Aubrey [facility] Start: 04-14-2022 End: 04-14-2022 ambulatory Lililillian Burgos Other [employer] Other Start: 04-14-2022 Telephone encounter Lili Aubrey [facility] Start: 04-03-2022 End: 04-03-2022 ambulatory Lili Aubrey Other [employer] Other Start: 04-03-2022 Telephone encounter Lili Aubrey [facility] Start: 03-24-2022 End: 03-24-2022 ambulatory Lili Burgos Other [employer] Other Start: 03-24-2022 Telephone encounter Lili matthew [facility] Start: 03-21-2022 End: 03-21-2022 ambulatory Lili Burgos Other [email or web address] Other Start: 03-21-2022 Telephone encounter Lili matthew [facility] Start: 03-06-2022 (DM) Diabetes Lili Aubrey [facility] Start: 03-06-2022 End: 03-07-2022 [facility] [employer] Other Start: 02-13-2022 End: 02-14-2022 [facility] Facility: Start: 12-31-2021 End: 12-31-2021 ambulatory Lili Burgos Other [employer] Other Start: 12-31-2021 Telephone encounter Lili matthew [facility] Start: 12-11-2021 [facility] Facility: Start: 11-20-2021 End: 11-20-2021 ambulatory Lili Burgos Other [employer] Other Start: 11-20-2021 Telephone encounter Lili matthew [facility] Start: 11-06-2021 End: 11-07-2021 [facility] Facility:[facility] Start: 10-28-2021 (DM) Diabetes Lili Airamly [facility] Start: 10-28-2021 End: 10-28-2021 ambulatory Lili Airamly Other [employer] Other Start: 09-20-2021 End: 09-20-2021 ambulatory Lili Airamly Other [employer] Other Start: 09-20-2021 Telephone encounter Lili Bello [place] [facility] Start: 09-12-2021 End: 09-12-2021 ambulatory Lili Burgos Other [employer] Other Start: 09-12-2021 Telephone encounter Lili Bello [place] [facility] Start: 08-01-2021 End: 08-02-2021 ambulatory [facility] Facility: Start: 07-22-2021 End: 07-22-2021 ambulatory Lili Burgos Other [employer] Other Start: 07-22-2021 Telephone encounter Lili daltons [facility] Start: 07-08-2021 End: 07-08-2021 ambulatory Lili Burgos Other [employer] Other Start: 07-08-2021 Telephone encounter Lili matthew [facility] Start: 07-04-2021 (DM) Diabetes Lili Aubrey [facility] Start: 07-04-2021 End: 07-04-2021 ambulatory Lili Burgos Other [employer] Other Start: 06-20-2021 End: 06-20-2021 ambulatory Clifford Munoz Other [employer] Other Start: 06-20-2021 Telephone encounter Cliffordronnie Munoz Ace [facility] Start: 04-19-2021 End: 04-19-2021 ambulatory Clifford Munoz Other [employer] Other Start: 04-19-2021 Telephone encounter Cliffordronnie Munoz Ace [facility] Start: 03-28-2021 End: 03-28-2021 ambulatory Clifford Munoz Other [employer] Other Start: 03-28-2021 Telephone encounter Clifford Bello [facility] Start: 01-29-2021 End: 01-29-2021 ambulatory Clifford Munoz Jr. Other [employer] Other Start: 01-29-2021 Telephone encounter Clifford key [facility] Start: 11-27-2020 Telephone encounter Clifford key [facility] Start: 11-21-2020 (DM) Diabetes Clifford Munoz Jr. [facility] Start: 09-25-2016 End: 09-26-2016 Ambulatory QUE BLAKE Facility:[facility] Start: 09-20-2016 End: 09-20-2016 Emergency department patient visit LAUREN FLOREZLOREN Facility:[facility] Start: 09-08-2016 End: 09-15-2016 Evaluation and management of inpatient QUE BLAKE Facility:[facility] Procedures Date Procedure Procedure Detail Performing [...] Date Care Activity Detail Author Start: 10-30-2022 [facility] Start: 10-30-2022 Computerized axial tomography of lumbar spine with contrast [facility] Patient Education [facility] Work Phone: [facility] Immunizations Immunization Date Immunization Notes Care Provider Fa cility 06-12-2020 COVID-19 Vaccine Mod samuel - Documentation Purposes Only Clifford Munoz Jr. Other [facility] 05-15-2020 COVID-19 Vaccine Mod samuel - Documentation Purposes Only Clifford Munoz Jr. Other [facility] Payers Date Payer Category Payer Unknown [id number] 2019 Self-pay [id number] 2017 Medicare [id number] 2.1 [id number] 1960 Unknown [id number] 2.16.840.1.901806.3.579.2.593 1960 Unknown [id number] 2.16.840.1.227966.3.579.2.593 1960 Unknown [id number] 2.16.840.1.786976.3.579.2.593 1960 Unknown [id number] 2.16.840.1.599668.3.579.2.593 1960 Unknown [id number] 2.16.840.1.599318.3.579.2.593 1960 Unknown [id number] 2.16.840.1.211596.3.579.2.593 1960 Unknown [id number] 2.16.840.1.178911.3.579.2.593 1960 Unknown [id number] 2.16.840.1.898220.3.579.2.593 1960 Unknown [id number] 2.16.840.1.546411.3.579.2.593 1960 Unknown [id number] 2.16.840.1.553629.3.579.2.1286 1960 Unknown [id number] 2.16.840.1.682923.3.579.2.1259 1960 Unknown [id number] 2.16.840.1.440832.3.579.2.1258 1960 Unknown [id number] 2.16.840.1.643918.3.579.2.1258 1960 Unknown [id number] 2.16.840.1.373344.3.579.2.1258 1960 Unknown [id number] 2.16.840.1.574256.3.579.2.1258 1960 Unknown [id number] 2.16.840.1.682647.3.579.2.1258 1960 Unknown [id number] 2.16.840.1.787850.3.579.2.1258 1960 Unknown [id number] 2.840. 1.736018.3.579.2.1258 1959 Medicare [id number] 2.1 6.840.1.409687.19 1959 Private Health Insurance [id number] Medicare [id number] .840.1.233681.19 Unknown Alexis BC/ [id number] Unknown [id number] 2.840.1.337909.3.579.2.531 Unknown [id number] 2.840.1.400583.3.579.2.531 Unknown [id number] 2.16.840.1.265781.3.579.2.531 Unknown [id number] 2.16.840.1.142196.3.579.2.531 Unknown [id number] 2.16.840.1.120203.3.579.2.531 Unknown [id number] 2.840.1.172564.3.579.2.531 Social History Date Type Detail Facility Unknown if ever smoked [email or web address] Other Sex Assigned At Sex Assigned At Bir th [email or web address] Other Start: 01-03-2021 End: 05-11-2023 Tobacco smoking status NHIS Ex-smoker (finding) [facility] Start: 1960 Sex Assigned At Female [facility] Medical Equipment Procedure Code Equipment Code Equipment Origin al Text Equipment Identifier Dates Arthroplasty, knee, total, minimally invasive Orthopaedic cement, non-medicated ()[id number] FDA Start: 01-03-2021 Arthroplasty, knee, total, minimally invasive Uncoated knee femur prosthesis ()[id number] FDA Start: 01-03-2021 Arthroplasty, knee, total, minimally invasive Tibial insert ()[id number] FDA Start: 01-03-2021 Arthroplasty, knee, total, minimally invasive Polyethylene patella prosthesis ()[id number] 4587 FDA Start: 01-03-2021 Arthroplasty, knee, total, minimally invasive Uncoated knee tibia prosthesis, metallic ()[id number] FDA Start: 01-03-2021 Start: 01-29-2021 Blood Sugar [...] doses to be administered. Attempt to download Bella and Dexcom apps with patient's personal phone, but phone [...] return in 2 weeks for download with nurses educator and in approximately 4 week follow up with provider. Encouraged to return for follow up visit. 45 minutes spent on education with Jodi DAIGLE, RN. [facility] Work Phone: [phone]) 533-159412-19-2023 Evaluation note* Encounter Date Diagnosis Assessment Notes Treatment Notes Treatment Clinical Notes Jan, Type 2 diabetes mellitus with hyperglycemia (ICD-10 - E11.65) ASSESSMENT: 1. Controlled, a Type 2 diabetes with A1c of 9.7%, was 8.0%. Worsening. 2. Out of Jardiance X3 weeks should not have impacted A1c to this degree, but needs to restart. Defers CGM d/t cost. Sampled [employer] 12.06/999 and given voucher Jardiance_ _ should [...] of insulin. Patient deferred due to her nhz-ap-kpgxoi cost. We will retry in a couple [...] at goal of less than 130/80 Jan, long-term current use of insulin (ICD-10 - Z79.4) Jan, BMI 50.0-59.9, adult (ICD-10 - Z68.43) [email or web address] Other 10-11-2023 Evaluation note* Encounter Date Diagnosis [...] Could also consider patient assistance with Rekha Ibarra. We did have a conversation about her [...] of insulin. Patient deferred due to her tee-sw-qbrjqa cost. 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 Patient deferred due to her tqj-kb-efoucp cost. 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 Shows posterior mechanical fusion at the L1-S1 with posterior decompression at the L1-L3. Patient had physical therapy at [facility] and continues to do the home physical therapy without improvement. Will order xray lumbar 6 view to rule out any spondylolisthesis. Will order MRI to rule out any cord compression. Will get release of information from pain management Dr. Cook and [facility] physical therapy for continuity of care.Will order Aqua therapy. OARRS reviewed. pharmacological management reviewed, will continue with current prescriptions as prescribed. Will add lidocaine patch and enup-cpq-aqrhjxf Thermo patch. Will follow-up in 8 weeks [...] out osteoporosis Jul, Other OARRS reveiwed ODRS 450 [email or web address] Other 06-16-2023 Evaluation note* Encounter Date Diagnosis [...] of insulin. Patient deferred due to her sfi-sw-pllzas cost. We will retry in a couple [...] diabetes medication issues. 6. Prescriptions: none 08-01-2022.PAP Vadim/Elvie. 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 The sensor was placed on the back of her right arm by this educator. The patient was shown how to unlock the hospital corpsman and read her BG. 15 minutes were spent placing the sensor and educating the patient by Lit Dixon RN, [facility] . [email or web address] Other 03-30-2023 NoteCONSULTATION CONSULTATION DATE: 05/15/2022 TO: [...] of the iliohypogastric nerve under fluoroscopic guidance.[facility] [id number] Evaluation note* Encounter Date Diagnosis Assessment Notes [...] Instructions material was published to portal Feb, long-term current use of insulin (ICD-10 - Z79.4) Feb, BMI 45.0-49.9, adult (ICD-10 - Z68.42) Expect improvement with escalation of Ozempic to 2.0 mg subcu daily. Weight up today without decrease in insulin needs, no increases satiety [email or web address] Other 12-29-2022 NoteCONSULTATION CONSULTATION DATE: 02/13/2022 HISTORY [...] is able to walk unassisted. Medications include [place] 5/325 t.i.d., baclofen 10 mg q.h. s., Pamelor and gabapentin 100 mg t.i.d. At her last appointment, I discussed the patient going to fitaboratea therapy and she agreed; however, due to [...] b.i.d. A referral will be sent to [facility] to Dr. Moses Goetz for evaluation and patient is in complete agreement with this. We will continue to maintain her medications at this time, which will include Lyrica, [place] and baclofen. We will see the patient in three months' time, unless otherwise indicated. Patient was asked to call the office with an update once she has seen Neurosurgery.[facility] 12-31-2021 Evaluation note* Encounter Date Diagnosis Assessment Notes Treatment Notes Treatment Clinical Notes Dec, Type 2 diabetes mellitus with hyperglycemia (ICD-10 - E11.65) [email or web address] Other 09-21-2022 NoteCONSULTATION CONSULTATION DATE: 11/06/2021 HISTORY [...] secondary to her pain. Current medications include [place] 5/325 t.i.d., baclofen 10 mg q.h.s., Pamelor [...] indicated, and patient agrees with this plan.[facility] [id number] Evaluation note* Encounter Date Diagnosis Assessment Notes [...] Instructions material was published to portal Oct, long-term current use of insulin (ICD-10 - Z79.4) Oct, BMI 45.0-49.9, adult (ICD-10 - Z68.42) Expect improvement with escalation of Ozempic to 2.0 mg subcu daily. Weight slightly improving. hopeful for continue reduction to increase insulin sensitivity and decrease insulin needs. [email or web address] Other 06-16-2022 NoteCONSULTATION CONSULTATION DATE: 08/01/2021 HISTORY [...] burn but manageable. Her current medications are [place] 5/325 t.i.d., baclofen 10 mg q.h.s. and [...] move forward with aqua therapy at the [place] location. I did discuss vitamins with her as well as nutrition importance. Patient will be seen at the clinic in three months' time unless otherwise indicated. [facility] Signed and Approved by: ALICIA HERNANDEZ . 08/14/2021 16:24:00[facility]05-23-2022 Evaluation note* Encounter Date Diagnosis Assessment Notes Treatment Notes Treatment Clinical Notes June, Type 2 diabetes mellitus with hyperglycemia (ICD-10 - E11.65) [employer] Other 05-19-2022 Evaluation note* Encounter Date Diagnosis [...] Instructions material was published to portal June, long-term current use of insulin (ICD-10 - Z79.4) June, BMI 45.0-49.9, adult (ICD-10 - Z68.42) Expect improvement with escalation of Ozempic to 2.0 mg subcu daily. [email or web address] Other 10-06-2021 Evaluation note* Encounter Date Diagnosis [...] Prescriptions: None needed at this time. Nov, long-term current use of insulin (ICD-10 - Z79.4) [...] About Vitamin D material was published to [employer] Other Evaluation noteNo InformationN[employer] Other Evaluation noteNo assessment information available [facility] Work Phone: Evaluation note* Diagnosis Onset Date Resolution Status Type 2 diabetes mellitus with hyperglycemia acute [facility] Work Phone: Hisfock general Narrative - Reported* Type Description Date Medical History RSD Medical History fibromyalgia Medical History hypertension Medical History type II diabetes Surgical History C section X3 Surgical History rotator cuff tear repair Surgical History back surgery x3 Surgical History knee surgery Surgical History hysteroscopy 4/14 Surgical History c5-c6 plates & screws Surgical History D&C 05/30 Hospitalization History see above [email or web address] Other [employer] general Narrative - Reported* Type Description Date Medical History RSD Medical History fibromyalgia Medical History hypertension Medical History type II diabetes Surgical History C section X3 Surgical History rotator cuff tear repair Surgical History back surgery x3 Surgical History knee surgery Surgical History hysteroscopy /14 Surgical History c5-c6 plates & screws Surgical History D&C 05/30 Surgical History knee replacement, Left 12/2020 Hospitalization History see above [email or web address] Other Hiscbcu general Narrative - Reported* Type Description Date Medical History fibromyalgia Medical History hypertension Medical History type II diabetes Surgical History C section X3 Surgical History rotator cuff tear repair Surgical History back surgery x3 Surgical History knee surgery Surgical History hysteroscopy 4/14 Surgical History c5-c6 plates & screws Surgical History D&C 05/30 Surgical History knee replacement, Left 12/2020 Hospitalization History see above [email or web address] Other Hissfif general Narrative - Reported* Type Description Date Medical History fibromyalgia Medical History hypertension Medical History type II diabetes Surgical History C section X3 Surgical History rotator cuff tear repair Surgical History back surgery x3 Surgical History knee surgery Surgical History hysteroscopy / Surgical History c5-c6 plates & screws Surgical History D&C 05/30 Surgical History knee replacement, Left 12/2020 Surgical History trigger finger release bilatera l 2021 Hospitalization History see above [email or web address] Other History general Narrative - Reported* Type [...] Hospitalization History see above Hospitalization History [facility] [place]- Flu 02/2022 [email or web address] Other History general Narrative - Reported* Type [...] Hospitalization History see above Hospitalization History [facility] [place]- Flu 02/2022 [email or web address] Other History general Narrative - ReportedNort [employer] Other Summary Purpose Family History No Family [...] history of thyroid disease Unknown Advance Directives No Advanced Directives Records [...] 1 BMI 50.0-59.9, adult (Z68.43) Referral Organization [facility] Referring Provider First Name Martine Referring Provider Last Name [place] Referring Provider Specialty Nurse Pract itioner Referred Organization [facility] Referred Address [address] [place], [place],[address] Referred Provider Specialty Neurology Referral Priority Routine Reason evaluate and treat - tremors Diagnosis 1 BMI 50.0-59.9, adult (Z68.43) Referral Organization [facility] Referring Provider First Name Martine Referring Provider Last Name [place] Referring Provider Specialty Nurse Pract itioner Referred Organization [facility] Referred Address [address] [place], [place],[address] Referred Provider Specialty Neurology Referral Priority Routine Reason Evaluate and treat - osteoporosis Diagnosis 1 BMI 50.0-59.9, adult (Z68.43) Referral Organization [facility] Referring Provider First Name Martine Referring Provider Last Name [place] Referring Provider Specialty Nurse Pract itioner Referred Organization [facility] Referred Provider Jennifer Siu Referred Address [address] [place], [place],[address] Referred Provider Specialty Nurse Pracphilipp tioneyasmine Referral Priority Routine Additional Source Comments INFORMATION SOURCE (unrecogn ized section and content) DATE CREATED AUTHOR 08/12/2017 [facility] DATE CREATED AUTHOR AUTHOR'S ORGANIZ ATION 07/02/2022 [facility] DATE CREATED AUTHOR AUTHOR'S ORGANIZ ATION 03/30/2023 [facility] DATE CREATED AUTHOR AUTHOR'S ORGANIZ ATION 04/08/2023 [facility] DATE CREATED AUTHOR AUTHOR'S ORGANIZ ATION 05/18/2023 [facility] dical Specialists EPIC REASON FOR VISIT (unrecogniz ed section and content) DM 3 month follow upFay Estradar [facility]Sent[facility] does not wish our services 03/28/21Cancelled. Requested we do not call to r/sDLC pen needlesDC VoicemailDC Basaglar refillDS Basaglar refillDS Jardiance RefillDM follow up, Type 2 IDDM, Accu Chek Guide MeterDS OzempicDS Basaglar alternativeDS Ozempic costDM, DM follow up, Type 2 IDDM, Accu Chek Guide Meter, [facility] Visit CodesDS Ozempic Sunitha PAP questionDS RefillDM rescheduled appt, DM, DM follow up, Type 2 IDDM, Accu Chek Guide Meter, [facility] Visit Codes, [facility] Visit CodesDS please callDS PAP/OzempicDS PAP OzempicDS [...] Member Role Status Dates Kalie Kasper , DO Primary Care Provider, Attending Provider Active Team Status: Inactive Member Role Status Dates Judith Newman , Primary Care Provider Active [facility] Attending Provider Active Team Status: Inactive Member Role Status Dates Lili Burgos APRN Attending Provider Active Start: February 03, 2023 End: February 03, 2023 Team Status: Inactive Member Role Status Dates Kalie Kasper , DO Primary Care Provid er, Attending Provider [...] DO Primary Care Provider Active Start: April 21, [...] BE BASED ON THE PRIMARY CLINICAL RECORDS. [employer] provides no warranty or guarantee of the accuracy or completeness of information in this document.
[2023-05-19 08:12] LABS: Glucometer 115 mg/dL (74-106)
[2023-05-19 08:14] VITALS: BP 179/94; PULSE 82; TEMP 36.6; O2SAT 97
[2023-05-19] MEDS: 0.9 % SODIUM CHLORIDE 500 ML IV (08:26)
[2023-05-19 09:33] VITALS: BP 186/92; PULSE 91; TEMP 36.8; O2SAT 96
[2023-05-19] MEDS: BUPIVACAINE HCL 0.25% PF 25 MG/10 ML VIAL 2 ML INJ (09:33)
[2023-05-19] MEDS: METHYLPREDNISOLONE ACETATE 40 MG/ML VIAL 20 MG INJ (09:34)
[2023-05-19] MEDS: LIDOCAINE HCL 2% 400 MG/20 ML MDV 6 ML INJ (09:34)
[2023-05-19 09:46] VITALS: BP 163/87; PULSE 89; TEMP 36.8; O2SAT 95
--- NOTE | 2023-05-19 09:59 | W.PM.PROCNOT ---
Date of procedure: 05/19/23 Pre-op diagnosis: RIGHT SUPERIOR GLUTEAL NEURITIS Post-op diagnosis: same as pre-op Procedure: Right Superior gluteal nerve Radiofrequency ablation PreOp diagnosis: pain secondary to superior gluteal neuritis Postop diagnosis same Under fluoroscopic guidance Rhizotomy was created using radio frequency ablation at 80?C for 90 seconds 1 to 2 lesions created at each site. Post lesioning injection of 2 mL each of 0.25% Marcaine and 2% lidocaine with Depo-Medrol 40mg. 0.5 to 1 mL injected at each site IV in place yes If Intravenous fluids: NS at KVO Anesthesia local 2% lidocaine for Anesthesia Other: MAC Timeout process compliant After informed consent obtained. Patient brought to the procedure room placed in the prone position skin overlying the area was prepped and draped in a sterile fashion using betadine. 25 gauge needle was used to create a skin wheal over each of the targeted areas utilizing 2% lidocaine. A rhizotomy needle with a 10 mm active tip was inserted over each of the anesthetized areas and directed towards four different areas in the distribution of the superior gluteal nerve, accomplished under fluoroscopic guidance. After encountering the same we had positive sensory stimulation, negative motor stimulation was noted. lesions were then created. Post lesioning, steroid solution was injected needles removed. Patient was transferred to recovery room in stable condition to be discharged home after meeting criteria. Anesthesia: MAC Surgeon: Tierney Terry Condition: stable
== END 2023-05-19 09:54 | disposition home or self-care (01) ==
LOC: SURGOUT 07:40
PROVIDERS: Visit Provider Anesthesiology Pain Medicine
DX: G57.81 Other specified mononeuropathies of right lower limb (principal); E10.9 Type 1 diabetes mellitus without complications; Z79.4 Long term (current) use of insulin; Z79.84 Long term (current) use of oral hypoglycemic drugs
CPT/HCPCS: 36415; 64640; 82948; J1010; J2704

== ENCOUNTER 2023-05-22 09:10 | Day surgery (SDC) | payer MEDICARE, SELFPAY ==
[2023-05-12 10:55] VITALS: BP 180/100; PULSE 81; RESP 24; TEMP 36.2; O2SAT 93; BMI 51.5
[2023-05-22] VITALS (15 sets, daily range): BP systolic 121–185; BP diastolic 90–122; PULSE 86–94; TEMP 36; O2SAT 92–97; BMI 50.9
[2023-05-22 09:19] LABS: Basophils Percent Auto 0.4 % (0.2-2.0); Eosinophils Absolute Auto 0.2 10^3/uL (0.0-0.7); Eosinophils Percent Auto 1.6 % (0.9-7.0); Hematocrit 38.3 % (36.0-48.0); Hemoglobin 11.7 g/dL (12.0-16.0); Immature Granulocytes Abs Auto 0.02 10^3/uL (0.00-0.03); Immature Granulocytes Pct Auto 0.2 % (0.0-0.5); Lymphocytes Absolute Auto 2.2 10^3/uL (1.2-3.8); Lymphocytes Percent Auto 20.3 % (20.5-60.0); Mean Corpuscular HGB Conc 30.5 g/dL (29.9-35.2); Mean Corpuscular Hemoglobin 27.8 pg (26.7-34.0); Mean Platelet Volume 9.5 fL (9.5-13.5); Monocytes Absolute Auto 0.6 10^3/uL (0.3-0.8); Monocytes Percent Auto 5.9 % (1.7-12.0); Neutrophils Absolute Auto 7.8 10^3/uL (1.4-6.5); Neutrophils Percent Auto 71.6 % (43.0-75.0); Platelet Count 280 10^3/uL (150-450); Red Blood Count 4.21 10^6/uL (4.20-5.40); Red Cell Distribution Width 15.2 % (11.0-15.0); White Blood Count 10.9 10^3/uL (4.0-11.0)
[2023-05-22 09:40] LABS: Glucometer 139 mg/dL (74-106)
[2023-05-22] MEDS: LACTATED RINGER'S SOLUTION 1,000 ML 50 ML IV (09:47)
--- NOTE | 2023-05-22 11:39 | PM.ONB ---
Brief Operative Note Date of procedure: 05/22/23 Pre-op diagnosis general: thickend endometrial lining, pmb Post-op diagnosis: same as pre-op Procedure: NAME OF PROCEDURE: [ D&c hysteroscopy with myosure] PROCEDURE: The patient was taken back to the Operating Room where she was prepped and draped in normal sterile fashion after being placed under general anesthesia without difficulty. She was also placed in the dorsal lithotomy position. A weighted speculum was placed in the patient?s vagina. The anterior lip of the cervix was identified and grasped with a single tooth tenaculum. The patient?s uterus was then sounded roughly to [? 8] cm. The patient was then gently dilated using Hegar dilators. The hysteroscope was passed through the patient?s cervix into the uterus. Both ostia were identified. fluffy appearing endometrium. No gross evidence of malignancy, no gross evidence of polyps or fibroids. The myosure apparatus was placed through the scope, The myosure was engaged and endometrial curretting endometrial mass was identified, The hysteroscope was then removed from the uterus. The endometrial curettings were sent out to pathology. The single tooth tenaculum was then removed from the patient's anterior lip of the cervix where excellent hemostasis was noted. All instruments were removed from the patient?s vagina. The patient tolerated the procedure well. Sponge, lap and needle counts were correct times two. The patient was taken to the Recovery Room in stable condition.Room in stable condition. Anesthesia: COLETTE Surgeon: Shawn Webb Estimated blood loss (mL): 5 Pathology: other (endometrial currettings) Condition: stable Disposition: PACU Urinary Catheter Management Urinary Catheter Management Urethral: Cath placed during this visit: no
== END 2023-05-22 13:09 | disposition home or self-care (01) ==
PROVIDERS: Visit Provider Obstetrics & Gynecology
PROC: (CPT 58558; principal; 2023-05-22 10:50)
DX: R10.2 Pelvic and perineal pain (principal); N95.0 Postmenopausal bleeding; I10 Essential (primary) hypertension; E11.9 Type 2 diabetes mellitus without complications; R93.89 Abnormal findings on diagnostic imaging of other specified body structures; C54.1 Malignant neoplasm of endometrium; M54.12 Radiculopathy, cervical region; M48.061 Spinal stenosis, lumbar region without neurogenic claudication; K21.9 Gastro-esophageal reflux disease without esophagitis; E78.2 Mixed hyperlipidemia; E66.9 Obesity, unspecified; Z79.85 Long-term (current) use of injectable non-insulin antidiabetic drugs; F41.1 Generalized anxiety disorder; Z68.43 Body mass index [BMI] 50.0-59.9, adult; Z86.16 Personal history of COVID-19; Z98.1 Arthrodesis status; Z79.84 Long term (current) use of oral hypoglycemic drugs; Z79.4 Long term (current) use of insulin; Z87.891 Personal history of nicotine dependence
CPT/HCPCS: 58558; 36415; 82948; 85025; 88305; 99999; J1094; J2704

== ENCOUNTER 2023-06-02 06:38 | Day surgery (SDC) | payer MEDICARE, SELFPAY ==
--- OUTSIDE RECORDS SUMMARY | 2023-06-02 06:42 | XMS_ITS | CCD ---
Author Organization [employer] Care Team Providers Care Speeder Worker Name Role Phone QUE BLAKE Unavailable Unavailable GECHASEINGQUE Unavailable Unavailable SELF, REFERRED Unavailable Unavailable OLIVE, ROSALES Unavailable Unavailable AL Unavailable Unavailable GEQUE RIDER Unavailable Unavailable WIEPKING, LAUREN Unavailable Unavailable SELF, REFERRED Unavailable Unavailable RICKY JULIEN Unavailable Unavailable OLIVE, ROSALES Unavailable Unavailable QUE BLAKE J Unavailable Unavailable QUE BLAKE Unavailable Unavailable QUE BLAKE Unavailable Unavailable OLIVE, ROSALES Unavailable Unavailable Clifford Munoz Jr. Unavailable Clifford Munoz Unavailable Lili Burgos Unavailable [facility] Unava ilable OLIVIER ., DR ADAM Liu Admitting Unavailable AGUAYO ., DR ADAM Liu Attending Unavailable HERNANDEZ ., ALICIA Consulting Unavailable LAKSHMIPATHY ., NARENDRANATH Consulting Daphne vailable [facility] Unava ilable LAKSHMIPATHY ., NARENDRANATH Admitting Daphne vailable LAKSHMIPATHY ., NARENDRALPHATH Attending Daphne vailable [facility] Unava ilable DR BLANE THOMAS Consulting Unavailable HERNANDEZ ., ALICIA Admitting Unavailable HERNANDEZ ., ALICIA Attending Unavailable HERNANDEZ ., ALICIA Consulting Unavailable [facility] Unava ilable HALKER ., JASON Attending Unavailable HALKER ., JASON Consulting Unavailable LAKSHMIPATHY ., NARENDRANATH Admitting Daphne vailable [facility] Unava ilable HALKER ., JASON Admitting Unavailable HALKER .JASON Attending Unavailable LAKSHMIPATHY ., NARENDRANATH Consulting Daphne vailable [facility] Unava ilable AGUAYO ., DR ADAM Liu Admitting Unavailable AGUAYO ., DR ADAM Liu Attending Unavailable HERNANDEZ ., ALICIA Consulting Unavailable [facility] Unava ilable HERNANDEZ ., ALICIA Consulting Unavailable AGUAYO ., DR ADAM Liu Attending Unavailable AGUAYO ., DR ADAM Liu Admitting Unavailable [facility] Unava ilable AGUAYO ., DR ADAM Liu Admitting Unavailable AGUAYO ., DR ADAM Liu Attending Unavailable HERNANDEZ ., ALICIA Consulting Unavailable [facility] Unava ilable LAKSHMIPATHY ., NARENDRANATH Admitting Daphne vailable LAKSHMIPATHY ., NARENDRANATH Attending Daphne vailable LAKSHMIPATHY ., NARENDRANATH Consulting Daphne vailable Martine Tobias Unavailable Rumschlag, DO Kalie Primary Care Provider Rumschlag, DO Kalie Attending Provider Amanda, DO Judith G Primary Care Provider [phone] [facility] Tobias Attending Provider Rumcurtislag, DO Kalie Primary Care Provider Rumcurtislanelly, DO Kalie Attending Provider Stoney Turner Unavailable AKANKSHA NICKERSON Attending Unavailable AMANDA, JUDITH G Referring Unavailable AMANDA, JUDITH G Primary Care Unavailable Rumschlag, DO Kalie Primary Care Provider Rumschlag, DO Kalie Attending Provider AMANDA, JUDITH G Attending Unavailable AMANDA, JUDITH G Attending Unavailable SHAWN WEBB Attending Unavailable JAYSON INGRAM Attending Unavailab SHAWN Palomino Attending Unavailable JENNIFER CABRERA Attending Unavailable AMANDA, JUDITH G Attending Unavailable BLANE FREDERICK Attending Unavailable Shawn Webb Attending Provider [phone] Lili Burgos Admitting Unavailable Lili Burgos Attending Unavailable Amanda, Judith G Primary Care Unavailable Martine Tobias Attending Unavailable Martine Tobias Admitting Unavailable Amanda, Judith G Primary Care Unavailable Shawn Webb Admitting Unavailable Shawn Webb Attending Unavailable Kalie Kasper Admitting Unavailable Kalie Kasper Primary Care Unavailable Kalie Kasper Attending Unavailable Martine Tobias Admitting Unavailable Martine Tobias Attending Unavailable Judith Newman Primary Care Unavailable Martine Tobias Attending Unavailable Judith Newman Primary Care Unavailable Martine Tobias Admitting Unavailable Martine Tobias Attending Unavailable Judith Newman Primary Care Unavailable Martine Tobias Admitting Unavailable Medications Current Medications Medication Drug Class(es) [...] directed Subcutaneous weekly for 90 days PAP 12 Oct, 2021 Active Start: 07-08-2021 Start: 07-08-2021 inject 2 [...] / oxyCODONE hydrochloride 7.5 mg oral tablet (17 sources) Opioid Agonist Start: 04-06-2023 take 1 [...] 08-01-2022 Start: 08-01-2022 take 1 capsule by [facility] every week Start: 08-01-2022 take 1 capsule by [facility] every week Cholecalciferol 1.25 MG (66887 UT) 1 capsule Orally weekly for 56 days Then OtC 4000 u daily therafter Jul, Active take 2 tablets by mo [facility] every twenty-four hours Vitamin D3 50 MCG (2000 UT) 2 tablets Orally Once a day Not-Taking/PRN take 1 capsule by mo [facility] every week Cholecalciferol 100 MCG (4000 UT) 1 capsule Orally weekly for 56 days Then OtC 4000 u daily therafter Active take 1 capsule by mo [facility] every week Cholecalciferol 50 MCG (1999 UT) 1 capsule Orally weekly for 56 days Then OtC 4000 u daily therafter Active take 1 capsule by mo uth every week Cholecalciferol 1.25 MG (72984 UT) 1 capsule Orally weekly for 56 [...] Jan, Active fluocinonide 1 mg/ml topical cream (8 sources) Corticosteroid Start: 12-17-2020 Fluocinonide Active 1 [...] hours hydrOXYzine hydrochloride 10 mg oral tablet (2 sources) Antihistamine Start: 05-11-2023 take 10 mg by mouth three times daily Hydroxyzine Hcl Active 10 MG PO Three times daily May 11, 2023 12:00am 3 ml insulin aspart, human 100 unt/ml pen injector (3 sources) Insulin Analog Start: 04-07-2023 End: 05-11-2023 Insulin Aspart (Niacinamide) (Fiasp Flextouch U-100 Insulin) 100 unit/mL (3 mL) insulin pen Active 1 sliding scale dose SUBCUT Use as Directed May 11, 2023 1:00pm PAP approved thru 02/16/2024 Corrective scale AC/HS 1:50, QID. Expect up to 30 u per day Insulin Degludec (Tresiba Flextouch U-100) 100 unit/mL (3 mL) insulin pen (6 sources) Start: 05-11-2023 Insulin Deglud ec (Tresiba Flextouch U-100) 100 unit/mL (3 mL) insulin pen Active 48 UNIT SUBCUT Daily May 11, 2023 12:57pm PAP approved thru 02/16/2024 Start: 05-11-2023 End: 05-11-2023 Insulin Degludec (Tresiba Fl extouch U-100) 100 unit/mL (3 mL) insulin pen Discontinued 50 UNIT SUBCUT Daily May 11, 2023 11:44am May 11, 2023 1:01pm Start: 05-11-2023 Insulin Deglud ec (Tresiba Flextouch [...] 12:00am metoprolol tartrate 25 mg oral tablet (3 sources) beta-Adrenergic Karrie Start: 04-06-2023 take 25 [...] June, Active pregabalin 75 mg oral capsule (15 sources) Start: 04-06-2023 take 75 mg by mouth twice daily Pregabalin Active 75 MG PO Twice daily April 06, 2023 1:00am take 1 capsule by mo uth every twelve hours Pregabalin 75 MG 1 capsule Orally Twice a day Active Semaglutide (Ozempic) 2 mg/dose (8 mg/3 mL) pen injector (4 sources) Start: 05-11-2023 inject 2 mg by subcutaneous injection every week Semaglutide (Ozempic) 2 mg/dose (8 mg/3 mL) pen injector Active 2 MG SUBCUT every week May 11, 2023 1:01pm PAP approved thru 02/16/2024 Start: 04-06-2023 End: 05-11-2023 inject 2 mg by subcutaneous injection every week Semaglutide (Ozempic) 2 mg/dose (8 mg/3 mL) pen injector Discontinued 2 MG SUBCUT every week April 06, 2023 1:00am May 11, 2023 1:01pm Start: 04-06-2023 inject 2 mg by subcu [...] 2023 12:00am tiZANidine 4 mg oral tablet (15 sources) Central alpha-2 Adrenergic Agonist Start: 04-06-2023 [...] tablet by mickey th every six hours Greenwood Active take 1 tablet by mickey th twice daily as needed Greenwood 5-325 MG 1 tablet as needed Orally [...] Active propranolol hydrochloride 10 mg oral tablet (8 sources) beta-Adrenergic Karrie Start: 12-17-2020 End: 12-17-2020 Propranolol Discontinued MG TABLET December 17, 2020 12:00am December 17, 2020 11:44am Semaglutide (8 sources) Start: 12-17-2020 End: 04-06-2023 inject 1 [...] unspecified] Onset: 07-04-2021 Resolved: 10-28-2021 Chronic Osteoarthritis (19 sources) Unilateral primary osteoarthritis, right knee; 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: [...] (current) use of insulin] Episodic Other aftercare (11 sources) intermediate manager (current) use of insulin; 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: [Long-term (current) use of insulin] Onset: 11-21-2020 Resolved: 10-28-2021 Episodic Other aftercare (1 source) 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 status; 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: [MCFP (current) use of insulin] 05-11-2023 Episodic Other connective tissue disease (1 source) Presence of right artificial knee joint; 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: [PRESENCE OF RIGHT ARTIFICIAL KNEE JOINT] Onset: 09-20-2016 Chronic Other connective tissue disease (8 sources) History of total knee arthroplasty; 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: [...] (current) use of oral hypoglycemic drugs; 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: [[facility] (CURRENT) USE OF ORAL HYPOGLYCEMIC DRUGS] Onset: [...] Test Name Value Interpretation Reference Range Facility SURGICAL PATHOLOGY REFERENCE LAB CONSULTon 05-29-2023 CASE REPORT Normal [facility] Comment on above: Order Comment: Speci men Type: FORMALIN-FIXED PARAFFIN-EMBEDDED TISSUE SPECIMEN Ordering Facility: [facility] Address: [address] [place] [phone] Result Comment: Surg [facility] Pathology Report Case: [id number] Authorizing Provider: Lukasz Neal MD Collected: 05/29/2023 12:39 PM Ordering Location: [facility] Received: 05/29/2023 12:38 PM [facility] Pathologist: Jeri Dickerson MD Specimen: Slide(s), 2 SLIDES ([id number]) Performed By: #### L [id number] #### [facility] CLIA [id number] [address] [place] [address] OF [facility] CLINICAL HISTORY CONSULT REQUESTED [facility] Comment on above: Order Comment: Speci men Type: FORMALIN-FIXED PARAFFIN-EMBEDDED TISSUE SPECIMEN Ordering Facility: [facility] Address: [address] [place] [phone] Performed By: #### L [id number] #### [facility] CLIA [id number] [address] [place] [address] DIAGNOSIS COMMENT Thank you for sendin g this interesting endometrial biopsy from a 63-year-old woman in consultation. 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 Further, this carcinoma has mucinous differentiation and a reasonable component of solid growth to warrant classification as FIGO grade 2. [address] Gi Carrasco has reviewed this case and agrees. If you have any questions or clinical follow-up on this case, please feel free to give me a call at . Normal [facility] Comment on above: Order Comment: Speci men Type: FORMALIN-FIXED PARAFFIN-EMBEDDED TISSUE SPECIMEN Ordering Facility: [facility] Address: [address] [place] [phone] Performed By: #### L [id number] #### [facility] CLIA [id number] [address] [place] [address] FINAL DIAGNOSIS Normal [facility] Comment on above: Order Comment: Speci men Type: FORMALIN-FIXED PARAFFIN-EMBEDDED TISSUE SPECIMEN Ordering Facility: [facility] Address: [address] [place], [place] [address] Result Comment: Revi ew of outside slides, dated 05/26/2023: Endometrium, curettage: -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 Performed By: #### L [id number] #### [facility] CLIA [id number] [address] [place] [address] FINAL PERFORMING LAB Normal [facility] Comment on above: Order Comment: Speci men Type: FORMALIN-FIXED PARAFFIN-EMBEDDED TISSUE SPECIMEN Ordering Facility: [facility] Address: [address] [place], [place] [address] Result Comment: Diag nostic interpretation performed at [facility], [address] [place] [address] CLIA# [id number] Histotechnologist: Josh Orellana M.D. Performed By: #### L [id number] #### [facility] CLIA [id number] [address] [place] [address] Gonzalo 05-22-2023 L Specimen: [id number] Received: 05/26/23 Status: AVANI Yanez Num: [id number] Spec Type: Surgical Subm Dr: Shawn Webb Tissues: A Endometrium - Curettings (EMC) Procedures: HE/2, Gross/Micro L4 Age/ Patient Sex Location Account Attending Physician Lesli Clay 63/F LABELL [id number] Shawn Webb SPEC NUM: [id number] RECD: 05/26/23 STATUS: AVANI YANEZ NUM: [id number] LESLIE: 05/22/[address]: Shawn Webb ENTERED: 05/26/[address]: Yoanna,Lab SPEC TYPE: Surgical DEPT: PHOEBE MENDOZA ORDERED: HE/2, Gross/Micro L4 ORDERED: HE/2, Gross/Micro L4 Supplemental Report Addendum 1 Entered: 06/01/23-1026 Supplemental findings of consultation report from [facility]: FINAL DIAGNOSIS: -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, FIGO grade 2; see comment Addendum Signed (signature on file) Bay Neal MD 06/01/23 1027 Pathological Diagnosis Endometrial curettings: -Severe complex atypical hyperplasia and the apparently markedly associated endometrioid adenocarcinoma of the non high-grade type in all fragments, including occasional punctate necrosis also identified in some fragments -Pending secondary consultation review to follow Specimen: [id number] Received: 05/26/23 Status: AVANI Yanez Num: [id number] Spec Type: Surgical Subm Dr: Shawn Webb Tissues: A Endometrium - Curettings (EMC) Procedures: Indigo ANDRADE/Micro L4 Patient: Lesli Clay [id number] (Continued) Specimen: [id number] Received: 05/26/23 (Continued) Signed (signature on file) Bay Neal MD 05/27/23 2136 Specimen: [id number] Received: 05/26/23 Status: AVANI Beau Num: [id number] Spec Type: Surgical Subm Dr: Shawn Webb Tissues: A Endometrium - Curettings (EMC) Procedures: Indigo ANDRADE/Garrett L4 Patient: Lesli Clay [id number] (Continued) Specimen: [id number] Received: 05/26/23 (Continued) Gross Description In formalin labeled endometrial curettings is a 3.0 x 2.5 x 0.5 cm aggregate of mcwilliams soft tissue. Submitted entirely in A1 RG/CYC Clinical history: Pelvic pain, postmenopausal bleeding?path pending CPT Codes 97968 Specimen: [id number] Received: 05/26/23 Status: AVANI Yanez Num: [id number] Spec Type: Surgical Subm Dr: Shawn Webb Tissues: A Endometrium - Curettings (EMC) Procedures: HE/2, Gross/Micro L4 Patient: Lesli Clay [id number] (Continued) Signed (signature on file) Bay Neal MD 05/27/232135 Normal [facility] No Panel Informationon 05-10 Bedside Glucose 121 [facility] - Chemistry and C hemistry - challengeon 04-22-2023 Albumin [Mass/Vol] 4.0 g/dL [facility] ALP [Catalytic activity/Vol] 104 U/L [facility] ALT [Catalytic activity/Vol] 19 U/L [facility] AST [Catalytic activity/Vol] 17 U/L [facility] Bilirubin [Mass/Vol] 0.2 mg/dL [facility] Calcium [Mass/Vol] 9.8 mg/dL [facility] Chloride [Moles/Vol] 101 mmol/L [facility] CO2 [Moles/Vol] 28 mmol/L [facility] Creatinine [Mass/Vol] 0.75 mg/dL [facility] Glucose [Mass/Vol] 228 mg/dL [facility] Potassium [Moles/Vol] 5.0 mmol/L [facility] Protein [Mass/Vol] 6.8 g/dL [facility] Sodium [Moles/Vol] 137 mmol/L [facility] Urea nitrogen [Mass/Vol] 21 mg/dL [facility] Laboratory - Hematology and Cell countson 04-22-2023 HbA1c (Bld) [Mass fraction] 8.9 % [facility] No Panel Informationon 04-21 Estimated GFR (Non- 89 mL/min [facility] No Panel Informationon 04-07 Bedside Glucose 182 [facility] A1C HEMOGLOBINon 02-03-2023 HbA1c (Bld) [Mass fraction] 9.7 % [employer] Other Glucose - FINGER STICKon Glucose [Mass/Vol] 178 mg/dL [employer] Other HbA1c (Bld) [Mass fraction]o n 02-03-2023 A1C HEMOGLOBIN [employer] Other Glucose - FINGER STICKon Glucose [Mass/Vol] 180 mg/dL [facility] [employer] Other CT lumbar spine w conon 10-17 CT lumbar spine w con [facility] [place] [address] [place] [address] CT Scan Report Signed Patient: Lesli Clay MR#: [id number] : 1960 Acct:[id number] Age/Sex: 62 / F ADM Date: 10/30/22 Loc: XD Room: Type: [facility] Attending Dr: Martine SANZ Copies [...] Mindy Tomas M.D.10/30/2022 4:11 PM Dictation Location: [place] [address] Transcribed By: [facility] 10/30/22 1611 Dictated By: Mindy Tomas II, MD 10/30/22 1602 Signed By: 10/30/22 1611 Normal [facility] IR myelogram spine lumbosacr aby 10-30-2022 IR myelogram spine lumbosacral [facility] [place] [address] [place] [address] Interventional Radiology Rpt Signed Patient: Lesli Clay MR#: [id number] : 1960 Acct:[id number] Age/Sex: 62 / F ADM Date: 10/30/22 Loc: XD Room: Type: [facility] Attending Dr: Martine SANZ Copies [...] Mindy Tomas M.D.10/30/2022 3:59 PM Dictation Location: [place] [address] Transcribed By: [facility] 10/30/22 155 Dictated By: Mindy Tomas II, MD 10/30/22 1559 Signed By: 10/30/22 1557 Normal [facility] A1C HEMOGLOBINon 10-03-2022 HbA1c (Bld) [Mass fraction] 8.3 % [employer] Other Glucose - FINGER STICKon Glucose [Mass/Vol] 211 mg/dL [employer] Other HbA1c (Bld) [Mass fraction]o n 10-03-2022 A1C HEMOGLOBIN [employer] Other Creatinine (Bld) [Mass/Vol]O rdered By: Martine Tobias on 09-19-2022 Creatinine [Mass/Vol] 0.7 mg/dL 0.6-1.3 [facility] Comment on above: ER/ESD physician is notified/shown all ISTAT results.Critical values may be confirmed by laboratory testing ifdeemed necessary by ER attending doctor. MR lumbar spine wo conon MR lumbar spine wo con [facility] [place] [address] MRI Report Signed Patient: Lesli Clay MR#: [id number] : 1960 Acct:[id number] Age/Sex: 62 / F ADM Date: 09/19/22 Loc: MR Room: Type: [facility] Attending Dr: Martine SANZ Copies to: [facility] [...] Mindy Tomas M.D.09/19/2022 4:07 PM Dictation Location: [place] [address] Transcribed By: [facility] 09/19/22 1607 Dictated By: Mindy Tomas II, MD 09/19/22 1600 Signed By: 09/19/22 1607 Normal [facility] XR lumbar spine 6V w bending on 08-18-2022 XR lumbar spine 6V w bending [facility] [place] [address] [place] [address] XRay Report Signed Patient: Lesli Clay MR#: [id number] : 1960 Acct:[id number] Age/Sex: 62 / F ADM Date: 08/18/22 Loc: XD Room: Type: [facility] Attending Dr: Martine KAMARAC Copies to: [facility] [...] Dodson Jr., D.O.08/18/2022 12:31 PM Dictation Location: [place] [address] Transcribed By: [facility] 08/18/22 1231 Dictated By: Noman Dodson Jr, DO 08/18/22 1230 Signed By: 08/18/22 1231 Normal [facility] A1C HEMOGLOBINon 06-06-2022 HbA1c (Bld) [Mass fraction] 8.0 % [employer] Other Glucose - FINGER [facility]ICKon Glucose [Mass/Vol] 156 mg/dL [employer] Other HbA1c (Bld) [Mass fraction]o n 06-06-2022 A1C HEMOGLOBIN [facility] [employer] Other POINT OF CARE GLUCOSEon 05-17 Glucose [Mass/Vol] 185 mg/dL Critically high 74-106 [facility] Comment on above: Performed By: #### P OCGLUC #### [facility] [address] [place] [address] [address] Keegan Neal A1C HEMOGLOBINon 03-06-2022 HbA1c (Bld) [Mass fraction] 7.8 % [place] [employer] Other CREATININEon 03-06-2022 Creatinine [Mass/Vol] 0.82 mg/dL Normal 0.55-1.02 [facility] Comment on above: Performed By: #### C EJ #### [facility] [address] [place] [address] [address] Keegan Neal EGFR-AF MICRONESIAN >60 Normal >=60 [facility] Comment on above: Performed By: #### C EJ #### [facility] [address] [place] [address] [address] Keegan Neal EGFR-NON AF MICRONESIAN >60 Normal >=60 [facility] Comment on above: Performed By: #### C EJ #### [facility] [address] [place] [address] [address] LSPINE WO W [...] by: BLANE THOMAS Date: 2022-03-06 11:22 Normal [facility] Glucose - FINGER STICKon Glucose [Mass/Vol] 200 mg/dL [employer] Other HbA1c (Bld) [Mass fraction]o n 03-06-2022 A1C HEMOGLOBIN [employer] Other A1C HEMOGLOBINon 10-28-2021 HbA1c (Bld) [Mass fraction] 7.0 % [employer] Other Glucose - [facility]ING[facility]on Glucose [Mass/Vol] 110 mg/dL [employer] Other HbA1c (Bld) [Mass fraction]o n 10-28-2021 A1C HEMOGLOBIN [employer] Other A1C HEMOGLOBINon 07-04-2021 HbA1c (Bld) [Mass fraction] 6.6 % [employer] Other Glucose - FINGER STICKon Glucose [Mass/Vol] 110 mg/dL [employer] Other HbA1c (Bld) [Mass fraction]o n 07-04-2021 A1C HEMOGLOBIN [employer] Other A1C HEMOGLOBINon 11-21-2020 HbA1c (Bld) [Mass fraction] 6.0 % [employer] Other Glucose - FINGER [facility]ICKon Glucose [Mass/Vol] 98 mg/dL [employer] Other HbA1c (Bld) [Mass fraction]o n 11-21-2020 A1C HEMOGLOBIN [employer] Other Discharge Summaryon 09-26-19 Discharge Summary MR#: [id number] [facility]li [facility] Admitted: 09/08/2016 [...] 09/24/2016/02:52 P/Que Cano M.D.Date Trans: 09/25/2016 08:08 A/deniseoDN_JN:[id number] cc: Rosales Taylor M.D. [address] [facility] [address] [place] [facility] KNEE RIGHT 3 [facility] 7 KNEE RIGHT 3 [facility] [address] [place] [address] P atient Name: LESLI CLAY : 1960ex: FAge: Race: WhiteMRN: [id number]. Location: 84Patient Status: Date: 09/25/2016 8:15:00 AMCompleted Date: 09/25/2016 08:22 AMRequesting Provider: QUE BLAKE Attending Provider: Report Copy To: Signs & Symptoms: Z96.651 Presence of right artificial knee joint [id number]: AthenaComments: , , , Ordering Provider - QUE BLAKE MD , Exam: KNEE RIGHT 3 VWSAccession #: [id number] ======KNEE RIGHT 3 VWS 09/25/2016 8:22 AM [...] changes. Electronically signed by:Mindy Tomas. Transcribed by: [id number], User Resident: Electronically Signed by: MINDY TOMAS @ 09/25/2016 04:44 PM Normal [facility] Comment on above: Order Comment: , , = ========= , Ordering Provider - QUE BLAKE MD , Consultationon 09-21-2016 Consultation [id number]: [facility] Date of [...] September 23, 2016, with Dr. Blake. In [facility], she was placed in a hinged knee brace to prevent flexion of theknee. She was given renewal of Keflex. We prescribed Greenwood for pain controland we applied an Armando wrap for edema control.Reviewed By:Desmond Mena MD 09/22/2016 08:26 AElectronically Signed by:Martin Fonseca MD 09/25/2016 03:22 P ___Martin Fonseca MD I was not present but assume all responsibility for the exam. NOTBILLABLEDate Dict: 09/21/2016/10:51 A/Desmond Mena MDDate Trans: 09/21/2016 11:52 A/Nigel_JN:[id number] cc: Rosales Taylor M.D. [address] [place] [address] Normal [facility] BASIC METABOLIC PANELon 08-0 Calcium 9.6 mg/dL Normal 8.6-10.3 [facility] Comment on above: Performed By: #### 0 0071 ####[facility] [place] [address], [facility] Chloride 99 mmol/L Normal 98-107 [facility] Comment on above: Performed By: #### 0 0071 ####[facility] [place] [address], [facility] CO2 29 mmol/L Normal 21-31 [facility] Comment on above: Performed By: #### 0 0071 ####[facility] [place] [address], [facility] Creatinine 0.91 mg/dL Normal 0.60-1.20 [facility] Comment on above: Performed By: #### 0 0071 ####[facility] [place] [address], [facility] eGFR (black) mL/min/{1.73_m2} Normal >60 [facility] [facility] Comment on above: Performed By: #### 0 0071 ####[facility] [place] [address], [facility] eGFR (non-black) mL/min/{1.73_m2} Normal >60 Th e [facility] Comment on above: Performed By: #### 0 0071 ####[facility] [place] [address], [facility] Glucose mass conc 151 mg/dL High 70-100 [facility] Comment on above: Performed By: #### 0 0071 ####[facility] [place] [address], [facility] Potassium molar conc 4.0 mmol/L Normal 3.5-5.1 The [facility] Comment on above: Performed By: #### 0 0071 ####[facility] Sodium 137 mmol/L Normal 136-145 The [facility] Comment on above: Performed By: #### 0 0071 ####[facility] Urea nitrogen 13 mg/dL Normal 7-25 [facility] Comment on above: Performed By: #### 0 0071 ####[place] [address] [address] C REACTIVE PROTEINon 017 C reactive protein (CRP) 28.5 mg/L High 0.0-7.0 The [facility] Comment on above: Performed By: #### 0 0071 ####[place] [address] CBC W/DIFFon 09-20-2016 Basophils Auto #/vol (Bld) 0.5 % Normal 0.0-2.0 The [facility] Comment on above: Performed By: #### 0 0071 ####[place] [address] Eosinophils/100 leukocytes 2.1 % Normal 0.0-5.0 The [facility] Comment on above: Performed By: #### 0 0071 ####[facility] Erythrocyte distribution width Auto Ratio (RBC) 17.1 % High 11.5-16.9 [facility] Comment on above: Performed By: #### 0 0071 ####[facility] Erythrocytes (RBC) 3.39 mill/mm3 Low 3.50-5.50 The [facility] Comment on above: Performed By: #### 0 0071 ####[facility] Hematocrit (HCT) 31.4 % Low 36.0-48.0 [facility] Comment on above: Performed By: #### 0 0071 ####[facility] Hemoglobin mass conc (Bld) 10.3 g/dL Low 12.0-15.0 [facility] Comment on above: Performed By: #### 0 0071 ####[place] [address] Lymphocytes/100 leukocytes 19.8 % Low 20.0-40.0 The [facility] Comment on above: Performed By: #### 0 0071 ####[place] [address] MCH 30.3 pg Normal 24.0-32.0 [facility] Comment on above: Performed By: #### 0 0071 ####[address] MCHC mass conc (RBC) 32.7 g/dL Normal 32.0-36.0 [facility] Comment on above: Performed By: #### 0 0071 ####[facility] MCV 92.6 fL Normal 80.0-100.0 The [facility] Comment on above: Performed By: #### 0 0071 ####[place] [address] METHOD Normal The [facility] Comment on above: Result Comment: Auto mated differential performedNormal RBC Morphology Performed By: #### 0 0071 ####[facility] [place] [address] [place] [address], [facility] MONOS 5.8 % Normal 2-8 The [facility] Comment on above: Performed By: #### 0 0071 ####[facility] [place] [address], [facility] Neutrophils/100 leukocytes 71.8 % High 50-70 The [facility] Comment on above: Performed By: #### 0 0071 ####[facility] [place] [address], [facility] PLAT CNT 400 Thou/mm3 Normal 100-400 The [facility] Comment on above: Performed By: #### 0 0071 ####[facility] [facility] [place] [address], [facility] WBC (Leukocytes) 10.6 Thou/mm3 High 4.0-10.[address] [facility] Comment on above: Performed By: #### 0 0071 ####[facility] [facility] [place] [address], [facility] SEDIMENTATION RATEon 017 SED RATE 107 mm/hr High 0-20 [facility] Comment on above: Performed By: #### 0 0071 ####[facility] [facility] [place] [address], [facility] POC GLUCOSE LABon 09-15-2016 Glucose mass conc 187 mg/dL High 70-100 [facility] Comment on above: Performed By: #### 0 0071 ####[facility] [facility] [place] [address], [facility] Glucose mass conc 153 mg/dL High 70-100 [facility] Comment on above: Performed By: #### 5 6101, 24594 ####[facility] [facility] [place] [address], [facility] POC GLUCOSE LABon 09-14-2016 Glucose mass conc 198 mg/dL High 70-100 [facility] Comment on above: Performed By: #### 5 6100, 04588 ####[facility] [place] [address], [place] Glucose mass conc 188 mg/dL High 70-100 [facility] Comment on above: Performed By: #### 5 6100, 35707 ####[facility] [place] [address], [place] Glucose mass conc 192 mg/dL High 70-100 [facility] Comment on above: Performed By: #### 5 6100, 64505 ####[facility] [place] [address], [place] Glucose mass conc 155 mg/dL High 70-100 [facility] Comment on above: Performed By: #### 5 6100, 27095 ####[facility] [facility] [place] [address], [place] POC GLUCOSE LABon 09-13-2016 Glucose mass conc 223 mg/dL High 70-100 [facility] Comment on above: Performed By: #### 5 6100, 67533 ####[facility] [place] [address], [place] Glucose mass conc 212 mg/dL High 70-100 [facility] Comment on above: Performed By: #### 5 6100, 02288 ####[facility] [place] [address], [place] Glucose mass conc 111 mg/dL High 70-100 [facility] Comment on above: Performed By: #### 5 6100, 80417 ####[facility] [place] [address], [place] Glucose mass conc 199 mg/dL High 70-100 [facility] Comment on above: Performed By: #### 5 6100, 36669 ####[facility] [place] [address], [place] Glucose mass conc 149 mg/dL High 70-100 [facility] Comment on above: Performed By: #### 5 610, 02601 ####[facility] [place] [address], [place] POC GLUCOSE LABon 09-12-2016 Glucose mass conc 205 mg/dL High 70-100 [facility] Comment on above: Performed By: #### 5 610, 65677 ####[facility] [place] [address], [place] Glucose mass conc 132 mg/dL High 70-100 [facility] Comment on above: Performed By: #### 5 610, 63784 ####[facility] [place] [address], [place] Glucose mass conc 184 mg/dL High 70-100 [facility] Comment on above: Performed By: #### 5 6100, 75940 ####[facility] [place] [address], [place] Glucose mass conc 158 mg/dL High 70-100 [facility] Comment on above: Performed By: #### 5 6100, 35739 ####[facility] [place] [address], [place] POC GLUCOSE LABon 09-11-2016 Glucose mass conc 194 mg/dL High 70-100 [facility] Comment on above: Performed By: #### 5 610, 10530 ####[facility] [place] [address], [place] Glucose mass conc 192 mg/dL High 70-100 [facility] Comment on above: Performed By: #### 5 610, 66659 ####[facility] [place] [address], [place] Glucose mass conc 221 mg/dL High 70-100 [facility] Comment on above: Performed By: #### 5 6101, 44668 ####[facility] [place] [address], [facility] Glucose mass conc 147 mg/dL High 70-100 [facility] Comment on above: Performed By: #### 5 6101, 28148 ####[facility] [place] [address], [facility] POC GLUCOSE LABon 09-10-2016 Glucose mass conc 224 mg/dL High 70-100 [facility] Comment on above: Performed By: #### 5 6101, 77063 ####[facility] [place] [address], [facility] Glucose mass conc 156 mg/dL High 70-100 [facility] Comment on above: Performed By: #### 1 0008 ####[facility] [facility] [place] [address], [facility] Glucose mass conc 240 mg/dL High 70-100 [facility] Comment on above: Performed By: #### 1 0008 ####[facility] [facility] [place] [address], [facility] Glucose mass conc 171 mg/dL High 70-100 [facility] Comment on above: Performed By: #### 1 0008 ####[facility] [facility] [place] [address], [facility] BASIC METABOLIC PANELon 08-17 Calcium 8.4 mg/dL Low 8.6-10.3 The [facility] Comment on above: Order Comment: No: D o not add to previous draw Performed By: #### 1 0008 ####[facility] [place] [address], [facility] Chloride 99 mmol/L Normal 98-107 The [facility] Comment on above: Order Comment: No: D o not add to previous draw Performed By: #### 1 0008 ####[facility] [facility] [address], [facility] CO2 27 mmol/L Normal 21-31 The [facility] Comment on above: Order Comment: No: D o not add to previous draw Performed By: #### 1 0008 ####[facility] [facility] [address], [facility] Creatinine 1.11 mg/dL Normal 0.60-1.20 The [facility] Comment on above: Order Comment: No: D o not add to previous draw Performed By: #### 1 0008 ####[facility] [facility] [address], [facility] eGFR (black) mL/min/{1.73_m2} Normal >60 The [facility] Comment on above: Order Comment: No: D o not add to previous draw Performed By: #### 1 0008 ####[facility] [facility].[address] eGFR (non-black) 51 ml/min/1.73sq m Abnormal >60 The [facility] Comment on above: Order Comment: No: D o not add to previous draw Performed By: #### 1 0008 ####[facility] [facility] [address], [facility] Glucose mass conc 161 mg/dL High 70-100 [facility] Comment on above: Order Comment: No: D o not add to previous draw Performed By: #### 1 0008 ####[place] [address] [facility] [place] [address], [facility] Potassium molar conc 4.2 mmol/L Normal 3.5-5.1 The [facility] Comment on above: Order Comment: No: D o not add to previous draw Performed By: #### 1 0008 ####[facility] Sodium 134 mmol/L Low 136-145 The [facility] Comment on above: Order Comment: No: D o not add to previous draw Performed By: #### 1 0008 ####[facility] [place] [address], [facility] Urea nitrogen 24 mg/dL Normal 7-25 [facility] Comment on above: Order Comment: No: D o not add to previous draw Performed By: #### 1 0008 ####[facility] [facility].[address] CBC W/DIFFon 09-09-2016 Basophils Auto #/vol (Bld) 0.2 % Normal 0.0-2.0 The [facility] Comment on above: Order Comment: No: D o not add to previous draw Performed By: #### 1 0008 ####[facility] [facility] [place] [address], [facility] Eosinophils/100 leukocytes 1.0 % Normal 0.0-5.0 The [facility] Comment on above: Order Comment: No: D o not add to previous draw Performed By: #### 1 0008 ####[facility] [facility].[address] Erythrocyte distribution width Auto Ratio (RBC) 16.9 % Normal 11.5-16.9 The [facility] Comment on above: Order Comment: No: D o not add to previous draw Performed By: #### 1 0008 ####[facility] Erythrocytes (RBC) 3.31 mill/mm3 Low 3.50-5.50 The [facility] Comment on above: Order Comment: No: D o not add to previous draw Performed By: #### 1 0008 ####[facility] Hematocrit (HCT) 30.7 % Low 36.0-48.0 The [facility] Comment on above: Order Comment: No: D o not add to previous draw Performed By: #### 1 0008 ####[facility] [place] [address], [facility] Hemoglobin mass conc (Bld) 10.0 g/dL Low 12.0-15.0 The [facility] Comment on above: Order Comment: No: D o not add to previous draw Performed By: #### 1 0008 ####[facility] Lymphocytes/100 leukocytes 25.6 % Normal 20.0-40.0 The [facility] Comment on above: Order Comment: No: D o not add to previous draw Performed By: #### 1 0008 ####[facility] [facility].[address] MCH 30.3 pg Normal 24.0-32.0 The [facility] Comment on above: Order Comment: No: D o not add to previous draw Performed By: #### 1 0008 ####[facility] [facility].[address] MCHC mass conc (RBC) 32.7 g/dL Normal 32.0-36.0 The [facility] Comment on above: Order Comment: No: D o not add to previous draw Performed By: #### 1 0008 ####[facility] [facility].[address] MCV 92.7 fL Normal 80.0-100.0 The [facility] Comment on above: Order Comment: No: D o not add to previous draw Performed By: #### 1 0008 ####[facility] [place] [address], [facility] METHOD Normal The [facility] Comment on above: Order Comment: No: D o not add to previous draw Result Comment: Auto mated differential performedNormal RBC Morphology Performed By: #### 1 0008 ####[facility] [place] [address], [facility] MONOS 6.9 % Normal 2-8 The [facility] Comment on above: Order Comment: No: D o not add to previous draw Performed By: #### 1 0008 ####[facility] [facility] [place] [address], [facility] Neutrophils/100 leukocytes 66.3 % Normal 50-70 The [facility] Comment on above: Order Comment: No: D o not add to previous draw Performed By: #### 1 0008 ####[facility] [facility] [address], [facility] PLAT CNT 304 Thou/mm3 Normal 100-400 The [facility] Comment on above: Order Comment: No: D o not add to previous draw Performed By: #### 1 0008 ####[facility] [place] [address], [facility] WBC (Leukocytes) 8.7 Thou/mm3 Normal 4.0-10.0 The [facility] Comment on above: Order Comment: No: D o not add to previous draw Performed By: #### 1 0008 ####[facility] [facility].[address] Operative Reporton 7 Operative Report MR#: [id number] [facility] Name: Lesli Clay Room #: [id number] Discharge Date: Birthdate: 1960 OPERATIVE REPORTDATE OF [...] 09/08/2016/08:19 P/Que Cano M.D.Date Trans: 09/09/2016 04:17 A/Nigel_JN:[id number] cc: Rosales Taylor M.D. [address] [facility] [address] Normal The [facility] POC GLUCOSE LABon 09-09-2016 Glucose mass conc 229 mg/dL High 70-100 [facility] Comment on above: Performed By: #### 1 0008 ####[facility] [facility] [place] [address], [facility] Glucose mass conc 159 mg/dL High 70-100 [facility] Comment on above: Performed By: #### 1 0008 ####[facility] [facility] [place] [address], [facility] Glucose mass conc 182 mg/dL High 70-100 [facility] Comment on above: Performed By: #### 1 0008 ####[facility] [facility] [place] [address], [facility] Glucose mass conc 159 mg/dL High 70-100 [facility] Comment on above: Performed By: #### 1 0008 ####[facility] [facility] [place] [address], [facility] Glucose mass conc 172 mg/dL High 70-100 [facility] Comment on above: Performed By: #### 1 0008 ####[facility] [facility] [place] [address], [facility] POC GLUCOSE LABon 09-08-2016 Glucose mass conc 175 mg/dL High 70-100 [facility] Comment on above: Performed By: #### 8 5499 ####[facility] [facility] [place] [address], [facility] Glucose mass conc 165 mg/dL High 70-100 [facility] Comment on above: Performed By: #### 8 5499 ####[facility] [facility] [place] [address], [facility] Glucose mass conc 173 mg/dL High 70-100 [facility] Comment on above: Performed By: #### 8 5499 ####[facility] [facility] [place] [address], [facility] PORTABLE KNEE RIGHT 2 Son 09-08-2016 PORTABLE KNEE RIGHT 2 [facility] [place] [address] P atient Name: LESLI CLAY : 1960ex: FAge: Race: WhiteMRN: [id number]. Location: OUTPPatient Status: OVisit #: [id number] Date: 09/08/2016 2:05:00 PMCompleted Date: 09/08/2016 02:45 PMRequesting Provider: QUE CANO Attending Provider: QUE BLAKE Report Copy To: Signs & Symptoms: Pain ( specify Location)History: Patient history not availableComments: Hardware Evaluation, please do in PACUExam: PORTABLE KNEE RIGHT 2 VWSAccession #: [id number] ======PORTABLE KNEE RIGHT 2 VWS 09/08/2016 2:45 [...] arthroplasty Electronically signed by:Joan Cormier. Transcribed by: [email or web address], User Resident: Electronically Signed by: JOAN CORMIER @ 09/08/2016 02:48 PM Normal The [facility] Comment on above: Order Comment: Hardw are Evaluation, please do in PACU APTTon 08-25-2016 aPTT 33.0 s Normal 25.0-35.0 The [facility] Comment on above: Result Comment: ALL [...] THIS PURPOSE. Performed By: #### 5 6101, 60713 ####[facility] [place] [address], [facility] BASIC METABOLIC PANELon 08-16 Calcium 9.9 mg/dL Normal 8.6-10.3 The [facility] Comment on above: Performed By: #### 0 0071 ####[facility] [place] [address], [facility] Chloride 96 mmol/L Low 98-107 [facility] Comment on above: Performed By: #### 0 0071 ####[facility] [place] [address], [facility] CO2 29 mmol/L Normal 21-31 The [facility] Comment on above: Performed By: #### 0 0071 ####[facility] [place] [address], [facility] Creatinine 0.94 mg/dL Normal 0.60-1.20 [facility] Comment on above: Performed By: #### 0 0071 ####[facility] [place] [address], [facility] eGFR (black) mL/min/{1.73_m2} Normal >60 The [facility] Comment on above: Performed By: #### 0 0071 ####[facility] [place] [address], [facility] eGFR (non-black) mL/min/{1.73_m2} Normal >60 Th e [facility] Comment on above: Performed By: #### 0 0071 ####[facility] [place] [address], [facility] Glucose mass conc 128 mg/dL High 70-100 [facility] Comment on above: Performed By: #### 0 0071 ####[facility] [place] [address], [facility] Potassium molar conc 4.0 mmol/L Normal 3.5-5.1 [facility] Comment on above: Performed By: #### 0 0071 ####[facility] [place] [address], [facility] Sodium 135 mmol/L Low 136-145 The [facility] Comment on above: Performed By: #### 0 0071 ####[facility] [facility].[address] Urea nitrogen 15 mg/dL Normal 7-25 [facility] Comment on above: Performed By: #### 0 0071 ####[facility] [facility].[address] CBC W/DIFFon 08-25-2016 Basophils Auto #/vol (Bld) 0.2 % Normal 0.0-2.0 The [facility] Comment on above: Performed By: #### 5 3 ####[facility] [facility].[address] Eosinophils/100 leukocytes 1.6 % Normal 0.0-5.0 The [facility] Comment on above: Performed By: #### 5 3 ####[facility] [facility].[address] Erythrocyte distribution width Auto Ratio (RBC) 16.9 % Normal 11.5-16.9 The [facility] Comment on above: Performed By: #### 5 102 ####[facility] [facility].[address] Erythrocytes (RBC) 4.18 mill/mm3 Normal 3.50-5.50 The [facility] Comment on above: Performed By: #### 5 3 ####[facility] [facility].[address] Hematocrit (HCT) 38.2 % Normal 36.0-48.0 The [facility] Comment on above: Performed By: #### 5 102 ####[facility] [facility].[address] Hemoglobin mass conc (Bld) 12.5 g/dL Normal 12.0-15.0 The [facility] Comment on above: Performed By: #### 5 3 ####[facility] [place] [address], [facility] Lymphocytes/100 leukocytes 21.4 % Normal 20.0-40.0 [facility] Comment on above: Performed By: #### 5 0103 ####[facility] [place] [address], [facility] MCH 29.9 pg Normal 24.0-32.0 The [facility] Comment on above: Performed By: #### 5 0103 ####[facility] [place] [address], [facility] MCHC mass conc (RBC) 32.7 g/dL Normal 32.0-36.0 [facility] Comment on above: Performed By: #### 5 0103 ####[facility] [facility] [place] [address], [facility] MCV 91.4 fL Normal 80.0-100.0 [facility] Comment on above: Performed By: #### 5 0103 ####[facility] [facility] [facility] [place] [address], [facility] METHOD Normal The [facility] Comment on above: Result Comment: Auto mated differential performedNormal RBC Morphology Performed By: #### 5 3 ####[facility] [facility] [place] [address], [facility] MONOS 5.2 % Normal 2-8 [facility] Comment on above: Performed By: #### 5 0103 ####[facility] [place] [address], [facility] Neutrophils/100 leukocytes 71.6 % High 50-70 [facility] Comment on above: Performed By: #### 5 0103 ####[facility] [place] [address], [facility] PLAT CNT 351 Thou/mm3 Normal 100-400 [facility] Comment on above: Performed By: #### 5 0103 ####[facility] WBC (Leukocytes) 12.0 Thou/mm3 High 4.0-10.[address] [facility] Comment on above: Performed By: #### 5 0103 ####[facility] PROTHROMBIN TIMEon 7 INR Coag RelTime (PPP) 0.97 {INR} Normal 0.91-1.16 [facility] Comment on above: Result Comment: ACCC P RECOMMENDED INR FOR WARFARIN THERAPY CONDITION INRPROPHYLAXIS OF VENOUS THROMBOSIS 2-3(HIGH-RISK SURGERY)TREATMENT OF VENOUS THROMBOSIS 2-3TREATMENT OF PULMONARY EMBOLISM 2-3PREVENTION OF SYSTEMIC EMBOLISM: 2-3 ACUTE MYOCARDIAL INFARCTION TISSUE HEART VALVES VALVULAR HEART DISEASE ATRIAL FIBRILLATION RECURRENT SYSTEMIC EMBOLISMMECHANICAL HEART VALVE 2.5-3.5 FROM: ORAL ANTICOAGULANTS. MECHANISM OF ACTION, CLINICALEFFECTIVENESS, AND OPTIMAL THERAPEUTIC RANGE. [id number]. Performed By: #### 5 6101, [id number] ####[facility] Prothrombin time (PT) Coag time (PPP) 12.9 s Normal 12.3-14.8 [facility] Comment on above: Result Comment: ALL RESULTS MUST BE INTERPRETED WITH RESPECT TO BLOOD DRAWING ARTIFACTOR DILUTION ERROR OF ANTICOAGULANT AT THE TIME OF SAMPLING. Performed By: #### 5 [id number], [id number] ####[facility] [facility] [place] [address], [facility] TYPE AND SCREENon 08-25-2016 ABO INTERPRETATION O Normal [facility] Comment on above: Performed By: #### 6 2586 ####[facility] [facility] [place] [address], [facility] ANTIBODY SCREEN Negative Normal The [facility] Comment on above: Performed By: #### 6 2586 ####[facility] [facility] [place] [address], [facility] RH INTERPRETATION Positive Normal [facility] Comment on above: Performed By: #### 6 2586 ####[facility] [facility] [place] [address], [place] URINALYSISon 08-25-2016 Bilirubin (total) Negative Normal NEGATIVE The [facility] Comment on above: Performed By: #### 1 0008 ####[facility] [facility] [place] [address], [facility] BLOOD MODERATE Abnormal NEGATIVE [facility] Comment on above: Performed By: #### 1 0008 ####[facility] [facility] [place] [address], [place] EPIS MOD Abnormal FEW [facility] Comment on above: Performed By: #### 1 0008 ####[facility] [facility] [place] [address], [place] Erythrocytes (RBC) 3-5 Abnormal 0-0 [facility] Comment on above: Performed By: #### 1 0008 ####[facility] [facility] [place] [address], [place] Glucose mass conc Negative Normal NEGATIVE The [facility] Comment on above: Performed By: #### 1 0008 ####[facility] [facility] [place] [address], [facility] KETONE Negative Normal NEGATIVE The [facility] Comment on above: Performed By: #### 1 0008 ####[facility] [facility] [place] [address], [facility] LEUK ZEYNEP TRACE Abnormal NEGATIVE The [facility] Comment on above: Performed By: #### 1 0008 ####[facility] [facility] [place] [address], [facility] pH of blood 7.0 [pH] Normal 5.0-8.0 The [facility] Comment on above: Performed By: #### 1 0008 ####[facility] [facility] [place] [address], [facility] Protein Negative Normal NEGATIVE [facility] Comment on above: Performed By: #### 1 0008 ####[facility] [facility] [place] [address], [facility] SPEC GRAV 1.006 Low 1.015-1.020 [facility] Comment on above: Performed By: #### 1 0008 ####[facility] [facility] [place] [address], [facility] Urine, appearance CLEAR Normal CLEAR The [facility] Comment on above: Performed By: #### 1 0008 ####[facility] [facility] [place] [address], [facility] Urine, bacteria in sediment MANY Abnormal NONE SEEN [facility] Comment on above: Performed By: #### 1 0008 ####[facility] [facility] [place] [address], [facility] Urine, color STRAW Abnormal YELLOW [facility] Comment on above: Performed By: #### 1 0008 ####[facility] [facility].[place] [id number], [facility] Urine, nitrite presence Negative Normal NEGATIVE The [facility] Comment on above: Performed By: #### 1 0008 ####[facility] [place] [address], [facility] WBC UA 11-20 Abnormal 0-0 [facility] Comment on above: Performed By: #### 1 0008 ####[facility] [facility] [place] [address], [facility] Vital Signs Date Time Vital Sign Value Performing Clinician Facility 05-11-2023 11:54-0400 Body height 160.02 cm [facility] 05-11-2023 11:54-0400 Body mass index (BMI) [Ratio] 51.5 kg/m2 [facility] 05-11-2023 11:54-0400 Body weight 132.05 kg [facility] 05-11-2023 11:54-0400 Diastolic blood pressure 83 mm[Hg] [facility] 05-11-2023 11:54-0400 Heart rate 74 /min [facility] 05-11-2023 11:54-0400 Respiratory rate 20 /min [facility] 05-11-2023 11:54-0400 SaO2% (BldA) [Mass fraction] 98 % [facility] 05-11-2023 11:54-0400 Systolic blood pressure 139 mm[Hg] [facility] 04-07-2023 09:09-0500 Body height 160.02 cm DO Kalie Rumschlag Work Phone: [facility] 04-07-2023 09:09-0500 Body mass index (BMI) [Ratio] 52.6 kg/m2 DO Kalie Rumschlag Work Phone: [facility] 04-07-2023 09:09-0500 Body weight 134.83 kg DO Kalie Rumschlag Work Phone: [facility] 04-07-2023 09:09-0500 Diastolic blood pressure 82 mm[Hg] DO Kalie Rumschlag Work Phone: [facility] 04-07-2023 09:09-0500 Heart rate 80 /min DO Kalie Rumschlag Work Phone: [facility] 04-07-2023 09:09-0500 Respiratory rate 20 /min DO Kalie Rumschlag Work Phone: [facility] 04-07-2023 09:09-0500 SaO2% (BldA) [Mass fraction] 93 % DO Kalie Rumschlag Work Phone: [facility] 04-07-2023 09:09-0500 Systolic blood pressure 130 mm[Hg] DO Kalie Rumschlag Work Phone: [facility] 02-03-2023 08:45-0500 Body height 160.02 cm Lili Scally Other [facility] 02-03-2023 08:45-0500 Body mass index (BMI) [Ratio] 52.61 kg/m2 Lili Scally Other [facility] Other 02-03-2023 08:45-0500 Body weight 134.72 kg Lili Scally Other [facility] Other 02-03-2023 08:45-0500 Body weight 134.71 kg DO Kalie Rumschlag Work Phone: [facility] 02-03-2023 08:45-0500 Diastolic blood pressure Lili Scally Other [facility] Other 02-03-2023 08:45-0500 Respiratory rate 20 /min Lili Scally Other [facility] Other 02-03-2023 08:45-0500 SaO2% (BldA) [Mass fraction] 94 % Lili Scally Other [facility] Other 02-03-2023 08:45-0500 Systolic blood pressure 144 mm[Hg] Lili Scally Other [facility] Other 11-26-2022 09:45-0400 Body height 160.02 cm Lili Scally Other [facility] Other 11-26-2022 09:45-0400 Body mass index (BMI) [Ratio] 51.37 kg/m2 Lili Scally Other [facility] Other 11-26-2022 09:45-0400 Body weight 131.54 kg Lili Scally Other [facility] Other 11-26-2022 09:45-0400 Diastolic blood pressure Lili Scally Other [facility] Other 11-26-2022 09:45-0400 Respiratory rate 20 /min Lili Scally Other [facility] Other 11-26-2022 09:45-0400 SaO2% (BldA) [Mass fraction] 96 % Lili Scally Other [facility] Other 11-26-2022 09:45-0400 Systolic blood pressure 124 mm[Hg] Lili Scally Other [facility] Other 11-25-2022 09:20-0400 Body height 160.02 cm Stoney Turner Other [facility] Other 11-25-2022 09:20-0400 Body mass index (BMI) [Ratio] 52.07 kg/m2 Stoney Turner Other [facility] Other 11-25-2022 09:20-0400 Body weight 133.36 kg Stoney Turner Other [facility] Other 10-30-2022 11:18-0400 Diastolic blood pressure 81 mm[Hg] DO Judith Amanda Work Phone: [facility] 10-30-2022 11:18-0400 Heart rate 94 /min DO Judith Amanda Work Phone: [facility] 10-30-2022 11:18-0400 Respiratory rate 18 /min DO Judith Amanda Work Phone: [facility] 10-30-2022 11:18-0400 SaO2% (BldA) [Mass fraction] 96 % DO Judith Amanda Work Phone: [facility] 10-30-2022 11:18-0400 Systolic blood pressure 159 mm[Hg] DO Judith Amanda Work Phone: [facility] 10-30-2022 09:52-0400 Body height 160.02 cm DO Judith Amanda Work Phone: [facility] 10-30-2022 09:52-0400 Body weight 126.55 kg DO Judith Amanda Work Phone: [facility] 10-09-2022 10:40-0400 Body height 160.02 cm Martine Tobias Other [facility] Other 10-09-2022 10:40-0400 Body mass index (BMI) [Ratio] 52.07 kg/m2 Martine Tobias Other [facility] Other 10-09-2022 10:40-0400 Body weight 133.36 kg Martine Tobias Other [facility] Other 10-09-2022 10:40-0400 Diastolic blood pressure 88 mm[Hg] Martine Tobias Other [facility] Other 10-09-2022 10:40-0400 Systolic blood pressure 154 mm[Hg] Martine Tobias Other [facility] Other 10-03-2022 09:15-0400 Body height 160.02 cm Lili Scally Other [facility] Other 10-03-2022 09:15-0400 Body mass index (BMI) [Ratio] 52.09 kg/m2 Lili Scally Other [facility] Other 10-03-2022 09:15-0400 Body weight 133.4 kg Lili Scally Other [facility] Other 10-03-2022 09:15-0400 Diastolic blood pressure 88 mm[Hg] Lili Scally Other [facility] Other 10-03-2022 09:15-0400 Respiratory rate 20 /min Lili Scally Other [facility] Other 10-03-2022 09:15-0400 SaO2% (BldA) [Mass fraction] 65 % Lili Scally Other [facility] Other 10-03-2022 09:15-0400 Systolic blood pressure 143 mm[Hg] Lili Scally Other [facility] Other 09-19-2022 13:49-0400 Diastolic blood pressure 109 mm[Hg] DO Kalie RumschDobns Agencyg Work Phone: [facility] 09-19-2022 13:49-0400 Heart rate 94 /min DO Kalie Rumschlag Work Phone: [facility] 09-19-2022 13:49-0400 Respiratory rate 20 /min DO Kalie Rumschlag Work Phone: [facility] 09-19-2022 13:49-0400 SaO2% (BldA) [Mass fraction] 96 % DO Kalie Rumschlag Work Phone: [facility] 09-19-2022 13:49-0400 Systolic blood pressure 209 mm[Hg] DO Kalie Rumschlag Work Phone: [facility] 09-19-2022 13:42-0400 Body height 162.56 cm DO Kalie Rumschlag Work Phone: [facility] 09-19-2022 13:42-0400 Body weight 124.73 kg DO Kalie Rumschlag Work Phone: [facility] 08-12-2022 09:40-0400 Body height 160.02 cm Martine Tobias Other [facility] Other 08-12-2022 09:40-0400 Body mass index (BMI) [Ratio] 50.62 kg/m2 Martine Tobias Other [facility] Other 08-12-2022 09:40-0400 Body weight 129.64 kg Martine Tobias Other [facility] Other 08-12-2022 09:40-0400 Diastolic blood pressure 86 mm[Hg] Martine Tobias Other [facility] Other 08-12-2022 09:40-0400 Systolic blood pressure 150 mm[Hg] Martine Tobias Other [facility] Other 08-01-2022 09:15-0400 Body height 160.02 cm Lili Scally Other [facility] Other 08-01-2022 09:15-0400 Body mass index (BMI) [Ratio] 50.62 kg/m2 Lili Scally Other [facility] Other 08-01-2022 09:15-0400 Body weight 129.64 kg Lili Scally Other [facility] Other 08-01-2022 09:15-0400 Diastolic blood pressure 84 mm[Hg] Lili Scally Other [facility] Other 08-01-2022 09:15-0400 Respiratory rate 18 /min Lili Scally Other [facility] Other 08-01-2022 09:15-0400 SaO2% (BldA) [Mass fraction] 95 % Lili Scally Other [facility] Other 08-01-2022 09:15-0400 Systolic blood pressure 130 mm[Hg] Lili Scally Other [facility] Other 06-06-2022 10:45-0400 Body height 160.02 cm Lili Scally Other [facility] Other 06-06-2022 10:45-0400 Body mass index (BMI) [Ratio] 50.43 kg/m2 Lili Scally Other [facility] Other 06-06-2022 10:45-0400 Body weight 129.14 kg Lili Scally Other [facility] Other 06-06-2022 10:45-0400 Diastolic blood pressure 76 mm[Hg] Lili Scally Other [facility] Other 06-06-2022 10:45-0400 Respiratory rate 18 /min Lili Scally Other [facility] Other 06-06-2022 10:45-0400 SaO2% (BldA) [Mass fraction] 96 % Lili Scally Other [facility] Other 06-06-2022 10:45-0400 Systolic blood pressure 131 mm[Hg] Lili Scally Other [facility] Other 03-06-2022 14:45-0500 Body height 160.02 cm Lili Scally Other [facility] Other 03-06-2022 14:45-0500 Body mass index (BMI) [Ratio] 46.81 kg/m2 Lili Scally Other [facility] Other 03-06-2022 14:45-0500 Body weight 119.89 kg Lili Scally Other [facility] Other 03-06-2022 14:45-0500 Diastolic blood pressure 72 mm[Hg] Lili Scally Other [facility] Other 03-06-2022 14:45-0500 Respiratory rate 18 /min Lili Scally Other [facility] Other 03-06-2022 14:45-0500 SaO2% (BldA) [Mass fraction] 96 % Lili Scally Other [facility] Other 03-06-2022 14:45-0500 Systolic blood pressure 112 mm[Hg] Lili Scally Other [facility] Other 10-28-2021 11:15-0400 Body height 160.02 cm Lili Scally Other [facility] Other 10-28-2021 11:15-0400 Body mass index (BMI) [Ratio] 45.49 kg/m2 Lili Scally Other [facility] Other 10-28-2021 11:15-0400 Body weight 116.48 kg Lili Scally Other [facility] Other 10-28-2021 11:15-0400 Diastolic blood pressure 83 mm[Hg] Lili Scally Other [facility] Other 10-28-2021 11:15-0400 Respiratory rate 18 /min Lili Scally Other [facility] Other 10-28-2021 11:15-0400 SaO2% (BldA) [Mass fraction] 97 % Lili Scally Other [facility] Other 10-28-2021 11:15-0400 Systolic blood pressure 133 mm[Hg] Lili Scally Other [facility] Other 07-04-2021 09:15-0400 Body height 160.02 cm Lili Scally Other [facility] Other 07-04-2021 09:15-0400 Body mass index (BMI) [Ratio] 45.79 kg/m2 Lili Scally Other [facility] Other 07-04-2021 09:15-0400 Body weight 117.26 kg Lili Scally Other [facility] Other 07-04-2021 09:15-0400 Diastolic blood pressure 83 mm[Hg] Lili Scally Other [facility] Other 07-04-2021 09:15-0400 Respiratory rate 18 /min Lili Scally Other [facility] Other 07-04-2021 09:15-0400 SaO2% (BldA) [Mass fraction] 96 % Lili Scally Other [facility] Other 07-04-2021 09:15-0400 Systolic blood pressure 125 mm[Hg] Lili Scally Other [facility] Other 11-21-2020 10:30-0400 Body height 160.02 cm Clifford Munoz Jr. Other [facility] Other 11-21-2020 10:30-0400 Body mass index (BMI) [Ratio] 46.97 kg/m2 Clifford Munoz Jr. Other [facility] Other 11-21-2020 10:30-0400 Body weight 120.29 kg Clifford Munoz Jr. Other [facility] Other 11-21-2020 10:30-0400 Diastolic blood pressure 76 mm[Hg] Clifford Munoz Jr. Other [facility] Other 11-21-2020 10:30-0400 Respiratory rate 18 /min Clifford Garciaian Sheriff Other [facility] Other 11-21-2020 10:30-0400 SaO2% (BldA) [Mass fraction] 97 % Clifford Garciaian Sheriff Other [facility] Other 11-21-2020 10:30-0400 Systolic blood pressure 123 mm[Hg] Clifford Garciaian Sheriff Other [facility] Other Encounters Encounter Date Encounter Type Care Provider Facility Start: 05-22-2023 End: 05-22-2023 ambulatory Shawn Jon Facility:[facility] Start: 05-22-2023 End: 05-22-2023 ambulatory Shawn Godoyo Work Phone: [facility] Work Phone: Start: 05-22-2023 End: 05-22-2023 Departed Referred Shawn Godoyo Work Phone: [facility] Start: 05-14-2023 End: 05-15-2023 ambulatory JENNIFER CABRERA Not Available Start: 05-11-2023 End: 05-11-2023 ambulatory [facility] Work Phone: Start: 05-11-2023 End: 05-11-2023 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 procedure [facility] Work Phone: Start: 04-28-2023 End: 04-28-2023 ambulatory SHAWN GODOYO Not Available Start: 04-22-2023 End: 04-22-2023 ambulatory JAYSON INGRAM Not Available Start: 04-22-2023 Non-patient / Non-visit [facility] Work Phone: Start: 04-21-2023 End: 04-21-2023 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 procedure [facility] Physician [facility] Work Phone: Start: 04-16-2023 End: 04-16-2023 ambulatory SHAWN WEBB Not Available Start: 04-07-2023 ambulatory Lili Burgos Facili ty:[facility] Start: 04-07-2023 End: 04-07-2023 ambulatory DO Kalie Rumschlag Work Phone: [facility] Work Phone: Start: 04-07-2023 End: 04-07-2023 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 procedure DO Kalie Rumschlag Work Phone: [facility] Work Phone: Start: 03-26-2023 End: 03-26-2023 ambulatory AKANKSHA Bloom [facility] Start: 03-04-2023 End: 03-04-2023 ambulatory Lili Aubrey Other [facility] Other Start: 03-04-2023 Telephone encounter Lili Burgos [facility] Start: 02-10-2023 End: 02-10-2023 ambulatory JUDITH NEWMAN Not Available Start: 02-03-2023 (DM) Diabetes Lili Sequeira ds [facility] Start: 02-03-2023 End: 02-04-2023 ambulatory DO Kalie Rumschlag Work Phone: [facility] Other Start: 02-03-2023 End: 02-03-2023 Discharged Recurring DO Kalie Rumschlag Work Phone: [facility] Work Phone: Start: 02-03-2023 End: 02-03-2023 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 procedure DO Kalie Rumschlag Work Phone: [facility] Work Phone: Start: 01-26-2023 End: 01-26-2023 ambulatory Lili Burgos Other [facility] Other Start: 01-26-2023 Telephone encounter Lili matthew [facility] Start: 01-15-2023 End: 01-15-2023 ambulatory BLANE FREDERICK Not Available Start: 01-15-2023 End: 01-15-2023 ambulatory JUDITH G AMANDA Not Available Start: 01-02-2023 End: 01-02-2023 ambulatory Lili Burgos Other [facility] Other Start: 01-02-2023 Telephone encounter Lili matthew [facility] Start: 12-31-2022 End: 12-31-2022 ambulatory JUDITH G AMANDA Not Available Start: 11-26-2022 (DM) Diabetes Lili Alegriawinston Fabby [facility] Start: 11-26-2022 End: 11-26-2022 ambulatory Lili Burgos Other [facility] Other Start: 11-25-2022 End: 11-25-2022 ambulatory Stoney Turner Other [facility] Other Start: 11-25-2022 Office outpatient ne w 30 minutes Stoney Turner [facility] Start: 11-12-2022 End: 11-12-2022 ambulatory Lili Burgos Other [facility] Other Start: 11-12-2022 Telephone encounter Lili matthew [facility] Start: 10-30-2022 End: 10-30-2022 ambulatory Martine Tobias Facility:[facility] Start: 10-30-2022 End: 10-30-2022 Admission to same day surgery center DO Judith Amanda Work Phone: [facility] [place] Work Phone: Start: 10-30-2022 End: 10-30-2022 ambulatory DO Judith G Amanda Work Phone: [facility] Work Phone: Start: 10-09-2022 End: 10-09-2022 ambulatory Martine Tobias Other [facility] [employer] Other Start: 10-09-2022 Office outpatient visit 25 minutes Martine Toibas [facility] Start: 10-07-2022 End: 10-07-2022 ambulatory Martine Tobias Facility:[facility] Start: 10-07-2022 End: 10-07-2022 ambulatory DO Judith G Amanda Work Phone: [facility] Work Phone: Start: 10-07-2022 End: 10-07-2022 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 procedure DO Judith Amanda Work Phone: [facility] Work Phone: Start: 10-03-2022 (DM) Diabetes Lili quach [facility] Start: 10-03-2022 End: 10-03-2022 ambulatory Lili Burgos Other [facility] [employer] Other Start: 10-03-2022 Registered Recurring DO Judith Amanda Work Phone: [facility] Work Phone: Start: 09-26-2022 End: 09-26-2022 ambulatory Lili Burgos Other [facility] [employer] Other Start: 09-26-2022 Telephone encounter Lili matthew [facility] Start: 09-19-2022 End: 09-19-2022 ambulatory Martine Tobias Facility:[facility] Start: 09-19-2022 End: 09-19-2022 ambulatory DO Kalie Rumschlag Work Phone: [facility] Work Phone: Start: 09-19-2022 End: 09-19-2022 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 procedure DO Kalie Rumschlag Work Phone: [facility] [place] Work Phone: Start: 08-18-2022 End: 08-18-2022 ambulatory Martine Tobias Facility:[facility] Start: 08-18-2022 End: 08-18-2022 ambulatory DO Kalie Rumschlag Work Phone: [facility] Work Phone: Start: 08-18-2022 End: 08-18-2022 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 procedure DO Kalie Rumschlag Work Phone: [facility] [place] Work Phone: Start: 08-12-2022 End: 08-12-2022 ambulatory Martine Tobias Other [facility] Other Start: 08-12-2022 Office outpatient ne w 45 minutes Martine Tobias [facility] Start: 08-12-2022 Telephone encounter Lili matthew [facility] Start: 08-05-2022 End: 08-05-2022 ambulatory Lili Burgos Other [facility] [employer] Other Start: 08-05-2022 Telephone encounter Lili matthew [facility] Start: 08-01-2022 (DM) Diabetes Lili Sequeira [facility] Start: 08-01-2022 End: 08-01-2022 ambulatory Lili Burgos Other [employer] Other Start: 08-01-2022 Registered Recurring DO Kalie Rumschlag Work Phone: [facility] Work Phone: Start: 07-22-2022 End: 07-22-2022 ambulatory Lili Airamly Other [facility] Other Start: 07-22-2022 Telephone encounter Lili Aubrey [facility] Start: 07-09-2022 End: 07-09-2022 ambulatory Lili Airamly Other [facility] Other Start: 07-09-2022 Telephone encounter Lili Aubrey [facility] Start: 07-01-2022 End: 07-02-2022 [facility] Facility:[facility] Start: 06-20-2022 End: 06-21-2022 [facility] Facility: Start: 06-16-2022 End: 06-16-2022 ambulatory Lili Airamly Other [facility] Other Start: 06-16-2022 Telephone encounter Lili Airamly [facility] Start: 06-06-2022 (DM) Diabetes Lili Scally [facility] Start: 06-06-2022 End: 06-06-2022 ambulatory Lili Scally Other [facility] Other Start: 06-03-2022 End: 06-03-2022 ambulatory NARENDRANATH LAKSHMIPATHY . Facility:H1 Start: 05-15-2022 End: 05-16-2022 [facility] Facility:H1 Start: 05-13-2022 End: 05-13-2022 ambulatory Lili Airamly Other [facility] Other Start: 05-13-2022 Telephone encounter Lili Airamly [facility] Start: 04-14-2022 End: 04-14-2022 ambulatory Lili Scally Other [facility] Other Start: 04-14-2022 Telephone encounter Lili Scally [facility] Start: 04-03-2022 End: 04-03-2022 ambulatory Lili Scally Other [facility] Other Start: 04-03-2022 Telephone encounter Lili Airamly [facility] Start: 03-24-2022 End: 03-24-2022 ambulatory Lili Airamly Other [facility] Other Start: 03-24-2022 Telephone encounter Lili Airamly [facility] Start: 03-21-2022 End: 03-21-2022 ambulatory Lili Scally Other [facility] Other Start: 03-21-2022 Telephone encounter Lili Airamly [facility] Start: 03-06-2022 (DM) Diabetes Lili Scally [facility] Start: 03-06-2022 End: 03-07-2022 [facility] Other Start: 02-13-2022 End: 02-14-2022 [facility] Facility:H1 Start: 12-31-2021 End: 12-31-2021 ambulatory Lili Airamly Other [facility] Other Start: 12-31-2021 Telephone encounter Lili Airamly [facility] Start: 12-11-2021 [facility] Facility:H1 Start: 11-20-2021 End: 11-20-2021 ambulatory Lili Scally Other [facility] Other Start: 11-20-2021 Telephone encounter Lili Airamly [facility] Start: 11-06-2021 End: 11-07-2021 [facility] Facility:H1 Start: 10-28-2021 (DM) Diabetes Lili Scally [facility] Start: 10-28-2021 End: 10-28-2021 ambulatory Lili Airamly Other [facility] Other Start: 09-20-2021 End: 09-20-2021 ambulatory Lili Scally Other [facility] Other Start: 09-20-2021 Telephone encounter Lili Aubrey daltons [facility] Start: 09-12-2021 End: 09-12-2021 ambulatory Lili Scally Other [facility] Other Start: 09-12-2021 Telephone encounter Lili Aubrey matthew [facility] Start: 08-01-2021 End: 08-02-2021 ambulatory [facility] Facility: Start: 07-22-2021 End: 07-22-2021 ambulatory Lili Airamly Other [facility] Other Start: 07-22-2021 Telephone encounter Lili Aubrey [facility] Start: 07-08-2021 End: 07-08-2021 ambulatory Lili Airamly Other [facility] Other Start: 07-08-2021 Telephone encounter Lilihebert matthew [facility] Start: 07-04-2021 (DM) Diabetes Lili Scally [facility] Start: 07-04-2021 End: 07-04-2021 ambulatory Lili Scally Other [facility] Other Start: 06-20-2021 End: 06-20-2021 ambulatory Clifford Munoz Other [facility] Other Start: 06-20-2021 Telephone encounter Clifford mat[facility]w [facility] Start: 04-19-2021 End: 04-19-2021 ambulatory Clifford Munoz Other [facility] Other Start: 04-19-2021 Telephone encounter Clifford matthew [facility] Start: 03-28-2021 End: 03-28-2021 ambulatory Clifford Munoz Other [facility] Other Start: 03-28-2021 Telephone encounter Clifford Bello [facility] Start: 01-29-2021 End: 01-29-2021 ambulatory Clifford Garciadichristian Sheriff Other [facility] Other Start: 01-29-2021 Telephone encounter Clifford Christian [facility] Start: 11-27-2020 [facility]phone encounter [facility] Start: 11-21-2020 (DM) Diabetes Clifford Munoz Jr. [facility] Start: 09-25-2016 End: 09-26-2016 Ambulatory QUE BLAKE Facility:[facility] Start: 09-20-2016 End: 09-20-2016 Emergency department patient visit LAUREN IZQUIERDO Facility:[facility] Start: 09-08-2016 End: 09-15-2016 Evaluation and management of inpatient QUE BLAKE Facility:[facility] Procedures Date Procedure Procedure Detail [...] Date Care Activity Detail Author Start: 10-30-2022 [facility] Start: 10-30-2022 Computerized axial tomography of lumbar spine with contrast [facility] Patient Education [facility] Myel[facility] Work Phone: [facility] Immunizations Immunization Date Immunization Notes Care Provider Fa hinaty 06-12-2020 COVID-19 Vaccine Mod samuel - Documentation Purposes Only Clifford Munoz Jr. Other [facility] 05-15-2020 COVID-19 Vaccine Mod samuel - Documentation Purposes Only Clifford Munoz Jr. Other [facility] Payers Date Payer Category Payer Unknown [id number] 2019 Self-pay [id number] 2017 Medicare [id number] 2.1 [id number] 1960 Unknown [id number] 2.16.840.1.306451.3.579.2.593 1960 Unknown [id number] 2.16.840.1.798923.3.579.2.593 1960 Unknown [id number] 2.16.840.1.624497.3.579.2.593 1960 Unknown [id number] 2.16.840.1.240797.3.579.2.593 1960 Unknown [id number] 2.16.840.1.373568.3.579.2.593 1960 Unknown [id number] 2.16.840.1.784937.3.579.2.593 1960 Unknown [id number] 2.16.840.1.560572.3.579.2.593 1960 Unknown [id number] 2.16.840.1.300351.3.579.2.593 1960 Unknown [id number] 2.16.840.1.755586.3.579.2.593 1960 Unknown [id number] 2.16.840.1.450530.3.579.2.1286 1960 Unknown [id number] 2.16.840.1.861378.3.579.2.1259 1960 Unknown [id number] 2.16.840.1.475137.3.579.2.1259 1960 Unknown [id number] 2.16.840.1.214092.3.579.2.1259 1960 Unknown [id number] 2.16.840.1.757028.3.579.2.1259 1960 Unknown [id number] 2.16.840.1.080707.3.579.2.1259 1960 Unknown [id number] 2.16.840.1.261333.3.579.2.1259 1960 Unknown [id number] 2.16.840.1.183803.3.579.2.1259 1960 Unknown [id number] 2.16.840. 1.666791.3.579.2.1259 1959 Medicare [id number] 2.1 6.840.1.017472.19 1959 Private Health Insurance [id number] Medicare [id number] 2.16 .840.1.209715.19 Unknown [place] BC/BS [id number] Unknown [id number] 2.16.840.1.580051.3.579.2.531 Unknown [id number] 2.16.840.1.973869.3.579.2.531 Unknown [id number] 2.16.840.1.054268.3.579.2.531 Unknown [id number] 2.16.840.1.846522.3.579.2.531 Unknown [id number] 2.16.840.1.857712.3.579.2.531 Unknown [id number] 2.16.840.1.000356.3.579.2.531 Unknown [id number] 2.16.840.1.041049.3.579.2.531 Social History Date Type Detail Facility Unknown if ever smoked [facility] Other Sex Assigned At Sex Assigned At Bir th [facility] Other Start: 01-03-2021 End: 05-11-2023 Tobacco smoking status MNIS Ex-smoker (finding) [facility] Start: 1960 Sex Assigned At Female F [facility] Medical Equipment Procedure Code Equipment Code Equipment Origin al Text Equipment Identifier Dates Arthroplasty, knee, total, minimally invasive Orthopaedic cement, non-medicated [id number] FDA Start: 01-03-2021 Arthroplasty, knee, total, minimally invasive Uncoated knee femur prosthesis ()[id number] FDA Start: 01-03-2021 Arthroplasty, knee, total, minimally invasive Tibial insert ()[id number] FDA Start: 01-03-2021 Arthroplasty, knee, total, minimally invasive Polyethylene patella prosthesis ()[id number] FDA Start: 01-03-2021 Arthroplasty, knee, total, minimally invasive Uncoated knee tibia prosthesis, metallic ()[id number] FDA Start: 01-03-2021 Start: 01-29-2021 Blood Sugar Diagnostic (Accu-Chek Guide Test Strips) strip Start: 05-06-2023 Blood Sugar Diagnostic (Accu-Chek Guide Test Strips) strip Start: 05-06-2023 End: 05-06-2023 Blood Sugar Diagnostic (Accu-Chek Guide Test [...] for Bella C[place] [facility] [place]. Patient provided contact number for [facility]. If pt is unable to afford CGM, pt instructed to continue use of her personal meter. Pt to return in 2 weeks for download with pst manager and in approximately 4 week follow up with provider. Encouraged to return for follow up visit. 45 minutes spent on education with Jodi DAIGLE RN. [facility] Work Phone: 1(769) 128-850302-20-2024 Evaluation note* Author Kaya Tomlinson [facility] Authored April 07, 2023 11:54am Patient here [...] for Bella CGM [place] be [place] [facility] [place]. Patient provided contact number for [facility] [place]. If pt is unable to afford CGM, pt instructed to continue use of her personal meter. Pt to return in 2 weeks for download with pst manager and in approximately 4 week follow up with provider. Encouraged to return for follow up visit. 45 minutes spent on education with Jodi DAIGLE, RN. Author Lili [facility] Authored May 11, 2023 1:1 8pm Meter: [employer] download 27 April through 11 May 2023 14 days and report, total readings 28, average 2/day, average blood glucose is 134. Lowest 84 and highest 200. Patient is here for Type 2 Diabetes, diagnosed approximately 2016 Any hypoglycemic events: not lower than 70, reports symptoms at 75 Regular physical activity: no formal exercise Nutrition: 2-3 meals per day Patient concerns for today: optimization Any recent hospitalizations: no Prescriptions needed: no ASSESSMENT: 1. Controlled, a Type 2 diabetes with A1c of 8.9% was 9.7 %, GMI today Current regime: Tresiba 50, Ozempic 2, Fiasp 1: 50, metformin 1000 twice daily 2. Blood glucose levels have likely improved. Checking on CGM [place] [facility] [place] processing 4 weeks ago, would benefit from surveillance --: but cost prohibitive ($130/ 3mos [place] [facility] [place] Reduce Tresiba to 48 u once daily (from 50 u) further reduce if notably under 100 same time of day 3/7 days per week Fiasp 1:50 mg/dl above goal premeal (currently infrequent use) Continue Ozempic 2 mg sq weekly weight down since last visit tolerating occasional belching, discussed things to help, or when to report, weight improving Continue Metformin 1000 mg twice daily. Jardiance cost prohibitive in past ($52/ 3 mos, did not qual for BI PAP), revisit intervally Prescription requests: none, PAP Ozempic, Tresiba and Fiasp HLD on atorvastatin, LDL 07/2022 79 HTN- metoprolol, UMIC 07/2022 <30 RTC 3 mos, sooner PRN 3. Patient is alert, oriented and receptive [...] diabetes, progressive beta cell , concepts of basal/bolus/corrective insulin requirements. Basal: The goal is fasting [...] doses and confirm symptoms for hypoglycemia and hyperglycemia. 5. [facility]. Contact office if any issues or concerns with patterns of hypoglycemia, hyperglycemia, or diabetes medication issues. [facility] Work Phone: 1(522) 215-896112-19-2023 Evaluation note* Encounter Date Diagnosis Assessment Notes [...] of insulin. Patient deferred due to her puc-kp-bcjlix cost. We will retry in a couple [...] at goal of less than 130/80 Jan, intermediate manager current use of insulin (ICD-10 - Z79.4) Jan, BMI 50.0-59.9, adult (ICD-10 - Z68.43) [facility] Other 10-11-2023 Evaluation note* Encounter Date Diagnosis [...] of insulin. Patient deferred due to her vtk-ib-yscmnf cost. We will retry in a couple [...] issues. 6. Prescriptions: None needed 10-03-2022.ROSALIE Fierro/Elvie. ROSALIE denied for Jardiance Nov, Vitamin D deficiency (ICD-10 - E55.9) Learning About Vitamin D material was published to portal 11 Oct, 2023 Dietary counseling and surveillance (ICD-10 - Z71.3) [...] at goal of less than 130/80 Nov, intermediate manager current use of insulin (ICD-10 - Z79.4) Nov, BMI 50.0-59.9, adult (ICD-10 - Z68.43) [facility] Other 10-10-2023 Evaluation note* Encounter Date Diagnosis [...] Nov, Other chronic pain (ICD-10 - G89.29) [facility] Other 08-24-2023 Evaluation note* Encounter Date Diagnosis [...] of lumbar spinal fusion (ICD-10 - Z98.1) [facility] Other 08-18-2023 Evaluation note* Encounter Date Diagnosis Assessment Notes Treatment Notes Treatment Clinical Notes Sep, Type 2 diabetes mellitus with hyperglycemia (ICD-10 - E11.65) ASSESSMENT: 1. Controlled, a Type 2 diabetes with A1c of 8.3%, was 8.0%. 2. Not on Jardiance. BI PAP denied as patient may qual for [employer] income subsidy-- this was discussed-- Sampled again [...] of insulin. Patient deferred due to her prw-vg-pcbgid cost. We will retry in a couple [...] diabetes medication issues. 6. Prescriptions: None needed 08-18-2023.PAP Ozempic/Tresiba. PAP denied for Jardiance Sep, Vitamin [...] 143/88, goal of less than 130/80 Sep, intermediate manager current use of insulin (ICD-10 - Z79.4) Sep, BMI 50.0-59.9, adult (ICD-10 - Z68.43) [facility] Other 06-27-2023 Evaluation note* Encounter Date Diagnosis Assessment Notes Treatment Notes Treatment Clinical Notes Jul, Lumbar radiculopathy (ICD-10 - M54.16) Independently reviewed the CT of the lumbar spine from 03/06/22, reviewed yzpn-as-vmxz with patient which shows which shows multilevel degenerative changes with mild to moderate canal and foraminal narrowing at the L4-L5. Shows posterior mechanical fusion at the L1-S1 with posterior decompression at the L1-L3. Patient had physical therapy at [facility] and continues to do the home physical therapy without improvement. Will order xray lumbar 6 view to rule out any spondylolisthesis. Will order MRI to rule out any cord compression. Will get release of information from pain management Dr. Cook and [facility] physical therapy for continuity of care.Will order Aqua therapy. OARRS reviewed. pharmacological management reviewed, will continue with current prescriptions as prescribed. Will add lidocaine patch and eedl-zcb-padtkik Thermo patch. Will follow-up in 8 weeks [...] rule out osteoporosis Jul, Other OARRS reveiwed [employer] Other 06-16-2023 Evaluation note* Encounter Date Diagnosis [...] of insulin. Patient deferred due to her hgp-ml-cwkgma cost. We will retry in a couple [...] Instructions material was published to portal Jul, intermediate manager current use of insulin (ICD-10 - Z79.4) Jul, BMI 50.0-59.9, adult (ICD-10 - Z68.43) [employer] Other 04-21-2023 Evaluation note* Encounter Date Diagnosis [...] Instructions material was published to portal May, intermediate manager current use of insulin (ICD-10 - Z79.4) May, BMI 50.0-59.9, adult (ICD-10 - Z68.43) May, Other Expect improvement with escalation of Ozempic to 2.0 mg subcu daily. Weight up today without decrease in insulin needs, no increases satiety The patient was given a Dexcom G6 sample and loaned an Office owned Dexcom G6 Instructor Dancing. The sensor was placed on the back of her right arm by this educator. The patient was shown how to unlock the transition advisor and read her BG. 15 minutes were spent placing the sensor and educating the patient by Lit Dixon RN, [facility] . [facility] Other 03-30-2023 NoteCONSULTATION CONSULTATION DATE: 05/15/2022 TO: [...] of the iliohypogastric nerve under fluoroscopic guidance.[facility] [id number] Evaluation note* Encounter Date Diagnosis Assessment Notes [...] Instructions material was published to portal Feb, MCFP current use of insulin (ICD-10 - Z79.4) Feb, BMI 45.0-49.9, adult (ICD-10 - Z68.42) Expect improvement with escalation of Ozempic to 2.0 mg subcu daily. Weight up today without decrease in insulin needs, no increases satiety [facility] Other 12-29-2022 NoteCONSULTATION CONSULTATION DATE: 02/13/2022 HISTORY [...] is able to walk unassisted. Medications include Greenwood 5/325 t.i.d., baclofen 10 mg q.h. s., [...] b.i.d. A referral will be sent to [facility]'s Neurosurgery to Dr. Moses Goetz for evaluation and patient is in complete agreement with this. We will continue to maintain her medications at this time, which will include Lyrica, Greenwood and baclofen. We will see the patient in three months' time, unless otherwise indicated. Patient was asked to call the office with an update once she has seen Neurosurgery.[facility] 12-31-2021 Evaluation note* Encounter Date Diagnosis Assessment Notes Treatment Notes Treatment Clinical Notes Dec, Type 2 diabetes mellitus with hyperglycemia (ICD-10 - E11.65) [facility] Other 09-21-2022 NoteCONSULTATION CONSULTATION DATE: 11/06/2021 HISTORY [...] secondary to her pain. Current medications include Greenwood 5/325 t.i.d., baclofen 10 mg q.h.s., Pamelor [...] indicated, and patient agrees with this plan.[facility] [id number] Evaluation note* Encounter Date Diagnosis Assessment Notes [...] Instructions material was published to portal Oct, MCFP current use of insulin (ICD-10 - Z79.4) Oct, BMI 45.0-49.9, adult (ICD-10 - Z68.42) Expect improvement with escalation of Ozempic to 2.0 mg subcu daily. Weight slightly improving. hopeful for continue reduction to increase insulin sensitivity and decrease insulin needs. [facility] Other 06-16-2022 NoteCONSULTATION CONSULTATION DATE: 08/01/2021 HISTORY [...] burn but manageable. Her current medications are Greenwood 5/325 t.i.d., baclofen 10 mg q.h.s. and [...] move forward with aqua therapy at the [place] location. I did discuss vitamins with her as well as nutrition importance. Patient will be seen at the clinic in three months' time unless otherwise indicated. [facility] Signed and Approved by: ALICIA HERNANDEZ . 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 [facility] Other 10-06-2021 Evaluation note* Encounter Date Diagnosis [...] Prescriptions: None needed at this time. Nov, MCFP current use of insulin (ICD-10 - Z79.4) Nov, HTN (hypertension) (ICD-10 - I10) High Blood Pressure: Care Instructions material was published to [employer] Nov, Hyperlipidemia (ICD-10 - E78.5) Learning About High Cholesterol material was published to [employer] Nov, Dietary counseling and surveillance (ICD-10 - Z71.3) Learning About Healthy Weight material was published to [employer] Nov, BMI 45.0-49.9, adult (ICD-10 - Z68.42) Nov, Albuminuria (ICD-10 - R80.9) Nov, BMI 50.0-59.9, adult (ICD-10 - Z68.43) Nov, Other Learning About Vitamin D material was published to [employer] Other Evaluation noteNo InformationNort [employer] Other Evaluation noteNo assessment information available [facility] Work Phone: Evaluation note* Diagnosis Onset Date Resolution Status Type 2 diabetes mellitus with hyperglycemia acute [facility] Work Phone: [place] general Narrative - Reported* Type Description Date Medical History RSD Medical History fibromyalgia Medical History hypertension Medical History type II diabetes Surgical History C section X3 Surgical History rotator cuff tear repair Surgical History back surgery x3 Surgical History knee surgery Surgical History hysteroscopy 4/14 Surgical History c5-c6 plates & screws Surgical History D&C 14 Hospitalization History see above [facility] Other HisPixelapse general Narrative - Reported* Type Description Date [...] replacement, Left 12/2020 Hospitalization History see above [facility] Other Hismawm general Narrative - Reported* Type Description Date Medical History fibromyalgia Medical History hypertension Medical History type II diabetes Surgical History C section X3 Surgical History rotator cuff tear repair Surgical History back surgery x3 Surgical History knee surgery Surgical History hysteroscopy 4/14 Surgical History c5-c6 plates & screws Surgical History D&C 05/30 Surgical History knee replacement, Left 12/2020 Hospitalization History see above [facility] Other Hisgchf general Narrative - Reported* Type Description Date [...] bilatera l 2021 Hospitalization History see above [facility] Other Hisowzi general Narrative - Reported* Type Description Date Medical History fibromyalgia Medical History hypertension Medical History type II diabetes Surgical History C section X3 Surgical History rotator cuff tear repair Surgical History back surgery x3 Surgical History knee surgery Surgical History hysteroscopy 4/14 Surgical History c5-c6 plates & screws Surgical History D&C 4/14 Surgical History knee replacement, Left 12/2020 Surgical History trigger finger release bilatera l 2021 Hospitalization History see above Hospitalization History [facility]- Flu 02/2022 [facility] Other History general Narrative - Reported* Type [...] Hospitalization History see above Hospitalization History [facility]- Flu 02/2022 [facility] Other History general Narrative - ReportedNortAngelPrime Other Summary Purpose Family History No Family [...] hyperglycemia Type 2 diabetes mellitus with hyperglycemia Chief Complaint DMN F/U-METER DS download meter METER Unknown Reason for Visit Type 2 diabetes livier itus with hyperglycemia Type 2 diabetes mellitus with hyperglycemia Encounter for long-term (current) insulin use Type 2 diabetes mellitus with hyperglycemia Reason for Referral Reason EMG bilat lower extr emities Diagnosis 1 BMI 50.0-59.9, adult (Z68.43) Referral Organization [facility] Referring Provider First Name Martine Referring Provider Last Name Tobias Referring Provider Specialty Nurse Pract itioner Referred Organization [facility] [address] Address [address] [place],[address] Referred Provider Specialty Neurology Referral Priority Routine Reason evaluate and treat - tremors Diagnosis 1 BMI 50.0-59.9, adult (Z68.43) Referral Organization [facility] Referring Provider First Name Martine Referring Provider Last Name Tobias Referring Provider Specialty Nurse Pract itioner Referred Organization [facility] Referred Address [address] [place],[address] Referred Provider Specialty Neurology Referral Priority Routine Reason Evaluate and treat - osteoporosis Diagnosis 1 BMI 50.0-59.9, adult (Z68.43) Referral Organization [facility] Referring Provider First Name Martine Referring Provider Last Name Tobias Referring Provider Specialty Nurse Pract itioner Referred Organization [facility] Referred Provider Jennifer Siu Referred Address [address] [place],[address] Referred Provider Specialty Nurse Pracphilipp tioneyasmine Referral Priority Routine Additional Source Comments INFORMATION SOURCE (unrecogn ized section and content) DATE CREATED AUTHOR 08/12/2017 [facility] DATE CREATED AUTHOR AUTHOR'S ORGANIZ ATION 07/02/2022 [facility] DATE CREATED AUTHOR AUTHOR'S ORGANIZ ATION 03/30/2023 [facility] DATE CREATED AUTHOR AUTHOR'S ORGANIZ ATION 05/18/2023 [facility] EPIC DATE CREATED AUTHOR AUTHOR'S ORGANIZ ATION 05/31/2023 [facility] DATE CREATED AUTHOR AUTHOR'S ORGANIZ ATION 06/01/2023 [facility] REASON FOR VISIT (unrecogniz ed section and content) DM 3 month follow upNo [facility] does not wish our services 03/28/21Cancelled. Requested we do not call to r/sDLC pen needlesDC VoicemailDC Basaglar refillDS Basaglar refillDS Jardiance RefillDM follow up, Type 2 IDDM, Accu Chek Guide MeterDS OzempicDS Basaglar alternativeDS Ozempic costDM, DM follow up, Type 2 IDDM, Accu Chek Guide Meter, [facility] Visit CodesDS Ozempic Sunitha PAP questionDS RefillDM rescheduled appt, DM, DM follow up, Type 2 IDDM, Accu Chek Guide Meter, [facility]odes, [facility] Visit CodesDS please callDS PAP/OzempicDS PAP OzempicDS med change?DS Tresiba/PAPDS Bella fell off3 month Follow up, Type 2 IDDM, Accu Chek Guide MeterDS Bella 28 weeks, 3 month Follow up, Type 2 IDDM, Accu Chek Guide MeterDS LabsDS Jardiance denial/ low income subsidyreferred by [facility] low back painDS-PAP OzempicMRI, Dexa resultsDM, [...] Dates Judith Newman , DO Primary Care Provide r, Attending Provider Active Start: April 22, 2023 Team Status: Inactive Member Role Status Dates Judith Newman DO Primary Care Provider Active Start: May 11, 2023 End: May 11, 2023 Lili Burgos APRN Attending Provider Active Start: May 11, 2023 End: May 11, 2023 Team Status: Inactive Member Role Status Dates Shawn Webb Attending Provider Active Start: 2023 End: May 22, 2023 Goals (unrecognized section and content) Goals [...] BE BASED ON THE PRIMARY CLINICAL RECORDS. [employer] [email or web address]. provides no warranty or guarantee of the accuracy or completeness of information in this document.
[2023-06-02 06:50] VITALS: BP 147/87; PULSE 96; TEMP 36; O2SAT 97
[2023-06-02 06:57] LABS: Glucometer 138 mg/dL (74-106)
[2023-06-02] MEDS: 0.9 % SODIUM CHLORIDE 500 ML 50 ML IV (07:12)
[2023-06-02] MEDS: LIDOCAINE HCL 2% 400 MG/20 ML MDV 7 ML INJ (07:57)
[2023-06-02] MEDS: BUPIVACAINE HCL 0.25% PF 25 MG/10 ML VIAL 4 ML INJ (07:57)
[2023-06-02] MEDS: METHYLPREDNISOLONE ACETATE 40 MG/ML VIAL INJ (07:57)
[2023-06-02 08:07] VITALS: BP 174/97; PULSE 86; TEMP 36.9; O2SAT 100
[2023-06-02 08:14] VITALS: BP 126/87; PULSE 86; TEMP 36.9; O2SAT 98
--- NOTE | 2023-06-02 08:25 | W.PM.PROCNOT ---
Date of procedure: 06/02/23 Pre-op diagnosis: LEFT SUPERIOR GLUTEAL NEURTITIS Post-op diagnosis: same as pre-op Procedure: Left Superior gluteal nerve Radiofrequency ablation PreOp diagnosis: pain secondary to superior gluteal neuritis Postop diagnosis same Under fluoroscopic guidance Rhizotomy was created using radio frequency ablation at 80?C for 90 seconds 1 to 2 lesions created at each site. Post lesioning injection of 2 mL each of 0.25% Marcaine and 2% lidocaine with Depo-Medrol 40mg. 0.5 to 1 mL injected at each site IV in place yes If Intravenous fluids: NS at KVO Anesthesia local 2% lidocaine for Anesthesia Other: MAC Timeout process compliant After informed consent obtained. Patient brought to the procedure room placed in the prone position skin overlying the area was prepped and draped in a sterile fashion using betadine. 25 gauge needle was used to create a skin wheal over each of the targeted areas utilizing 2% lidocaine. A rhizotomy needle with a 10 mm active tip was inserted over each of the anesthetized areas and directed towards four different areas in the distribution of the superior gluteal nerve, accomplished under fluoroscopic guidance. After encountering the same we had positive sensory stimulation, negative motor stimulation was noted. lesions were then created. Post lesioning, steroid solution was injected needles removed. Patient was transferred to recovery room in stable condition to be discharged home after meeting criteria. Anesthesia: MAC Surgeon: Tierney Terry Condition: stable
== END 2023-06-02 08:27 | disposition home or self-care (01) ==
LOC: SURGOUT 06:39
PROVIDERS: Visit Provider Anesthesiology Pain Medicine
DX: G57.82 Other specified mononeuropathies of left lower limb (principal); E11.9 Type 2 diabetes mellitus without complications; Z79.4 Long term (current) use of insulin; Z79.84 Long term (current) use of oral hypoglycemic drugs
CPT/HCPCS: 36415; 64640; 82948; J1010; J2704

== ENCOUNTER 2023-07-02 10:36 | Outpatient (OUT) | payer MEDICARE, SELFPAY ==
--- NOTE | 2023-07-02 10:54 | P.CN_ITS ---
Consult Note: HPI Data of Consult Patient: known to practice within the last 3 years Requesting Physician: Shama Allen NP Primary Care Provider: [facility] Consult Narrative Reason for consult: F/u Narrative: Lesli Clay a pleasant 62 year old female presents for evaluation and management of chronic low back pain and bilateral hip/buttock pain. Today pain 2/10 increasing to 8/10 with activity. Patient reports aching, pressure, burning. Patient finding benefit to current medication regimen without side effects. Patient found significant relief, greater than 80%, immediately following and 2 hours after bilateral superior gluteal nerve block but reporting no improvement from right and left superior gluteal RFA. Since last visit patient has been diagnosed with uterine cancer and has upcoming hysterectomy. cc:: CC: Shama Allen NP Review of Systems 2 ROS0 Status of ROS 10 or more systems reviewed and unremark able except as noted in history and below Musculoskeletal Reports: back pain, extremity pain and joint pain PFSH PFSH Medical History (Updated 07/02/23 @ 10:58 by Shama Allen NP) Pelvic pain ?R10.2 - Pelvic and perineal pain (ICD-10) Post-menopausal bleeding ?N95.0 - Postmenopausal bleeding (ICD-10) Fibromyalgia ?M79.7 - Fibromyalgia (ICD-10) Arthritis ?M19.90 - Unspecified osteoarthritis, unspecified site (ICD-10) Neck pain ?M54.2 - Cervicalgia (ICD-10) Back pain ?M54.9 - Dorsalgia, unspecified (ICD-10) Depression ?F32.A - Depression, unspecified (ICD-10) Panic attacks ?F41.0 - Panic disorder [episodic paroxysmal anxiety] (ICD-10) COVID-19 ?U07.1 - COVID-19 (ICD-10) Dyspnea on exertion ?R06.09 - Other forms of dyspnea (ICD-10) High cholesterol ?E78.00 - Pure hypercholesterolemia, unspecified (ICD-10) Diabetes ?E11.9 - Type 2 diabetes mellitus without complications (ICD-10) Delayed recovery from anesthesia Anesthesia complication ?T88.59XA - Other complications of anesthesia, initial encounter (ICD-10) Postmenopausal ?Z78.0 - Asymptomatic menopausal state (ICD-10) RSD (reflex sympathetic dystrophy) ?G90.50 - Complex regional pain syndrome I, unspecified (ICD-10) Low back pain ?M54.50 - Low back pain, unspecified (ICD-10) Osteoarthritis ?M19.90 - Unspecified osteoarthritis, unspecified site (ICD-10) Shingles ?B02.9 - Zoster without complications (ICD-10) Anxiety ?F41.9 - Anxiety disorder, unspecified (ICD-10) Obesity ?E66.9 - Obesity, unspecified (ICD-10) Heartburn ?R12 - Heartburn (ICD-10) Acid reflux ?K21.9 - Gastro-esophageal reflux disease without esophagitis (ICD-10) Diabetes 1.5, managed as type 2 ?E13.9 - Other specified diabetes mellitus without complications (ICD-10) Hypercholesterolemia ?E78.00 - Pure hypercholesterolemia, unspecified (ICD-10) Hypertension ?I10 - Essential (primary) hypertension (ICD-10) Surgical History S/P epidural steroid injection ?Z92.241 - Personal history of systemic steroid therapy (ICD-10) History of carpal tunnel release ?Z98.890 - Other specified postprocedural states (ICD-10) History of arthroplasty of knee ?Z96.659 - Presence of unspecified artificial knee joint (ICD-10) History of fusion of cervical spine ?Z98.1 - Arthrodesis status (ICD-10) H/O hemorrhoidectomy ?Z98.890 - Other specified postprocedural states (ICD-10) History of delivery ?Z98.891 - History of uterine scar from previous surgery (ICD-10) Hx of arthroscopy of knee ?Z98.890 - Other specified postprocedural states (ICD-10) H/O repair of rotator cuff ?Z98.890 - Other specified postprocedural states (ICD-10) H/O dilation and curettage ?Z98.890 - Other specified postprocedural states (ICD-10) History of hysteroscopy ?Z98.890 - Other specified postprocedural states (ICD-10) H/O lumbar discectomy ?Z98.890 - Other specified postprocedural states (ICD-10) History of lumbar laminectomy ?Z98.890 - Other specified postprocedural states (ICD-10) S/P trigger finger release ?Z98.890 - Other specified postprocedural states (ICD-10) Family History Other Family history of heart disease Family history of hypertension Family history of myocardial infarction Social History Within the past year, how often did you have a drink containing alcohol: never Score interpretation: A score less than 3 is consistent with normal alcohol consumption. Smoking status: Former smoker Non-prescribed substance use: denies use Highest level of school completed/degree received: high school graduate Meds Home Medications and Allergies Home Medications ?Medication ?Instructions ?Recorded ?Confirmed ?Type atorvastatin 40 mg tablet 40 mg PO QDAY 07/16/22 06/02/23 History bupropion HCl 300 mg 24 hr tablet, 300 mg PO QDAY 07/16/22 06/02/23 History extended release (Wellbutrin XL) metformin 1,000 mg tablet 1,000 mg PO BID 07/16/22 06/02/23 History metoprolol tartrate 25 mg tablet 25 mg PO BID 07/16/22 06/02/23 History omeprazole 20 mg capsule,delayed 20 mg PO QDAY 07/16/22 06/02/23 History release tizanidine 4 mg capsule (Zanaflex) 4 mg PO Q12H 07/16/22 06/02/23 History pregabalin 75 mg capsule (Lyrica) 75 mg PO BID #60 caps 03/04/23 06/02/23 Rx oxycodone-acetaminophen 7.5 mg-325 1 tab PO TID PRN pain #90 tabs 04/02/23 06/02/23 Rx mg tablet (Percocet) aripiprazole 15 mg tablet (Abilify) 15 mg PO DAILY 05/12/23 06/02/23 History ergocalciferol (vitamin D2) 50 mcg 50 mcg PO DAILY 05/12/23 06/02/23 History (2,000 unit) capsule hydralazine 25 mg tablet 25 mg PO BID 05/12/23 06/02/23 History insulin degludec 100 unit/mL (3 48 unit subcut DAILY 05/12/23 06/02/23 History mL) subcutaneous pen (Tresiba FlexTouch U-100 insulin) losartan 50 mg-hydrochlorothiazide 1 tab PO DAILY 05/12/23 06/02/23 History 12.5 mg tablet (Hyzaar) nortriptyline 75 mg capsule 75 mg PO DAILY 05/12/23 06/02/23 History semaglutide 2 mg/dose (8 mg/3 mL) 2 mg subcut QWEEK 05/12/23 06/02/23 History subcutaneous pen injector (Ozempic) oxycodone-acetaminophen 7.5 mg-325 1 tab PO TID PRN pain #90 tabs 06/02/23 Rx mg tablet (Percocet) Allergies Allergy/AdvReac Type Severity Reaction Status Date / Time No Known Drug Allergies Allergy Verified 06/02/23 06:58 Exam Constitutional Documenting provider has reviewed patient's vital signs: yes Common normals: no apparent distress, oriented x3, healthy appearing, alert and well nourished General appearance: cooperative HENMD Common normals: normocephalic, hearing grossly normal bilaterally and moist oral mucous membranes Head and scalp: normocephalic Eye Common normals: PERRL Pupil: PERRL Neck & C-Spine Common normals: full ROM General: normal visual inspection Chest Common normals: inspection of chest normal Respiratory Common normals: normal respiratory effort, no retractions and no use of accessory muscles Back & Pelvis Thoracic spine/upper back: normal to inspection and thoracic ROM normal Lumbar spine/lower back: ROM limited, pain with ROM and straight leg raise negative bilaterally Sacroiliac joints: SI joint(s) abnormal Other: pain over bilateral superior gluteal nerves, worse upon palpation positive fabers/fadirs gaenslens and thigh thrust, tender over bilateral PSIS tenderness over bilateral GTB Back image (female): 2 1. 2. 3. 4. Extremity Common normals: normal to inspection and full ROM Right lower extremity: knee joint Left lower extremity: knee joint Other: R/L knee pain, limited ROM, decrease in strength. Neuro Common normals: oriented x3, CN's II-XII intact bilaterally, moves all extremities, no focal motor deficits, no sensory deficits noted and deep tendon reflexes 2+ bilaterally Sensorium/orientation: alert Gait (neuro): antalgic Motor exam: strength 5/5 throughout and no movement abnormalities noted Psych Common normals: mental status grossly normal, thought process normal, cooperative, affect normal, speech normal and activity/motor behavior normal Speech: normal speech Thought process: normal thought process Results Additional Findings Additional findings: If on a controlled substance or opioids, I have checked an [place] report on this patient and there are no aberrancies noted in the prescribing history.??If on a controlled substance or opioid a drug screen was completed and reviewed within the last year, and if there has not been a drug screen completed we ordered one today to monitor higher risk, state monitored pain medication use. As part of providing excellent, safe, comprehensive care, the following was completed at our patient's visit: 1. A medication reconciliation and review to ensure accurate knowledge of current/active medications, including asking our patients to inform us about any [id number] medications or herbal remedies/nutritional supplements/alternative remedies. 2. A review to specifically ensure our patients have had annual screening for screening for depression, screening for tobacco use, and screening for unhealthy alcohol use. For concerning screenings had a discussion with the patient, provided patient education, and recommended follow-up with primary care provider when appropriate. If patient noted with a risk of falling, they received education on strength, gait, and balance training to prevent future risk of falling. Assessment and Plan Assessment and Plan (1) Unspecified mononeuropathy of right lower limb: (2) Unspecified mononeuropathy of left lower limb: (3) Chronic prescription opiate use: Assessment and Plan: I feel these medications are improving the patient's quality of life and allow them to tolerate activities of daily living as well as participate in recreational activity.? The patient does not report intolerable side effects. The patient is NOT opioid naive and non-pharmacologic and non-opioid treatment has failed to significantly relieve the patient's pain and improve functionality. The patient has a diagnosis that is related to a somatic or visceral pain etiology. ? ?? I reviewed with the patient the potential risks and side effects with the use of? opioid medications including but not limited to respiratory depression,? sedation, and even . I verified the patient has access to naloxone should? these effects occur. I advised the patient to avoid the use of any other? sedation substances including alcohol, THC, and benzodiazepines while? taking opioid medications due to the risk of compounding side effects and? detrimental outcomes. I reviewed the [employer], pain treatment agreement, urine? drug screen, and opioid start talking forms. The patient was advised to let? their family know they had Naloxone in case they would need to administer? the medication.? ?? A drug screen was completed within the last year, and no aberrancies were noted regarding their use of controlled substances. The patient understands they are subject to the terms and conditions of the pain contract that they have signed. ? ?? I have checked an [place] report on this patient today and there are no aberrancies noted in the prescribing history.? (4) Muscle spasm: (5) Bilateral knee pain: (6) Obesity: Assessment and Plan: The patient was counseled that proper dietary changes and consistent participation in a home exercise plan can lead to weight loss. Weight loss can help to improve functionality in patients with chronic pain.? (7) Lumbar spondylosis: (8) Spinal stenosis of lumbar region: (9) Lumbar radiculopathy: (10) Greater trochanteric bursitis: Plan right then left superior gluteal nerve thermal RFA providing no improvement per patient, however YANCY has improved from 58% to 42% recent diagnosis of uterine cancer, continue f/u with gyno-oncology upcoming hysterectomy continue percocet to 7.5-325mg BID-TID PRN moderate to severe pain, continues to find functional improvement without side effects. patient to stop our opioids post-operatively and allow surgeon to manage post-op pain. patient verbalized understanding narcan discussed and prescribed continue lyrica 75mg BID continue zanaflex 4mg BID continue Wellbutrin 300mg daily patient declining additional workup at this time, could benefit from lumbar facet blocks and bilateral greater trochanteric bursa injections f/u 3 months for medication management, sooner if needed
== END 2023-07-02 10:37 | disposition home or self-care (01) ==
LOC: PM 10:37
PROVIDERS: Visit Provider Nurse Practitioner
DX: Z79.891 Long term (current) use of opiate analgesic (principal); M62.838 Other muscle spasm; M25.561 Pain in right knee; M25.562 Pain in left knee; E66.9 Obesity, unspecified; M47.816 Spondylosis without myelopathy or radiculopathy, lumbar region; M48.062 Spinal stenosis, lumbar region with neurogenic claudication; M70.62 Trochanteric bursitis, left hip; M70.61 Trochanteric bursitis, right hip; G57.93 Unspecified mononeuropathy of bilateral lower limbs
CPT/HCPCS: G0463

== ENCOUNTER 2023-08-06 10:22 | Outpatient (OUT) | payer MEDICARE, SELFPAY ==
--- NOTE | 2023-08-06 10:57 | PM.CN ---
Consult Note: HPI Data of Consult Patient: known to practice within the last 3 years Requesting Physician: Shama Allen NP Primary Care Provider: [facility] Consult Narrative Reason for consult: F/u Narrative: Lesli Clay a pleasant 62 year old female presents for evaluation and management of chronic low back pain and bilateral hip/buttock pain. Today pain 3/10 increasing to 8/10 with activity. Patient reports aching, pressure, burning. Patient finding benefit to current medication regimen without side effects. Patient found significant relief, greater than 80%, immediately following and 2 hours after bilateral superior gluteal nerve block but reporting no improvement from right and left superior gluteal RFA. Since last visit patient has been had her hysterectomy for uterine cancer. cc:: CC: Shama Allen NP Review of Systems ROS Status of ROS 10 or more systems reviewed and unremarkable except as noted in history and below Musculoskeletal Reports: back pain, extremity pain and joint pain PFSH PFSH Medical History (Updated 08/06/23 @ 10:59 by Shama Allen NP) Pelvic pain ?R10.2 - Pelvic and perineal pain (ICD-10) Post-menopausal bleeding ?N95.0 - Postmenopausal bleeding (ICD-10) Fibromyalgia ?M79.7 - Fibromyalgia (ICD-10) Arthritis ?M19.90 - Unspecified osteoarthritis, unspecified site (ICD-10) Neck pain ?M54.2 - Cervicalgia (ICD-10) Back pain ?M54.9 - Dorsalgia, unspecified (ICD-10) Depression ?F32.A - Depression, unspecified (ICD-10) Panic attacks ?F41.0 - Panic disorder [episodic paroxysmal anxiety] (ICD-10) COVID-19 ?U07.1 - COVID-19 (ICD-10) Dyspnea on exertion ?R06.09 - Other forms of dyspnea (ICD-10) High cholesterol ?E78.00 - Pure hypercholesterolemia, unspecified (ICD-10) Diabetes ?E11.9 - Type 2 diabetes mellitus without complications (ICD-10) Delayed recovery from anesthesia Anesthesia complication ?T88.59XA - Other complications of anesthesia, initial encounter (ICD-10) Postmenopausal ?Z78.0 - Asymptomatic menopausal state (ICD-10) RSD (reflex sympathetic dystrophy) ?G90.50 - Complex regional pain syndrome I, unspecified (ICD-10) Low back pain ?M54.50 - Low back pain, unspecified (ICD-10) Osteoarthritis ?M19.90 - Unspecified osteoarthritis, unspecified site (ICD-10) Shingles ?B02.9 - Zoster without complications (ICD-10) Anxiety ?F41.9 - Anxiety disorder, unspecified (ICD-10) Obesity ?E66.9 - Obesity, unspecified (ICD-10) Heartburn ?R12 - Heartburn (ICD-10) Acid reflux ?K21.9 - Gastro-esophageal reflux disease without esophagitis (ICD-10) Diabetes 1.5, managed as type 2 ?E13.9 - Other specified diabetes mellitus without complications (ICD-10) Hypercholesterolemia ?E78.00 - Pure hypercholesterolemia, unspecified (ICD-10) Hypertension ?I10 - Essential (primary) hypertension (ICD-10) Surgical History S/P epidural steroid injection ?Z92.241 - Personal history of systemic steroid therapy (ICD-10) History of carpal tunnel release ?Z98.890 - Other specified postprocedural states (ICD-10) History of arthroplasty of knee ?Z96.659 - Presence of unspecified artificial knee joint (ICD-10) History of fusion of cervical spine ?Z98.1 - Arthrodesis status (ICD-10) H/O hemorrhoidectomy ?Z98.890 - Other specified postprocedural states (ICD-10) History of delivery ?Z98.891 - History of uterine scar from previous surgery (ICD-10) Hx of arthroscopy of knee ?Z98.890 - Other specified postprocedural states (ICD-10) H/O repair of rotator cuff ?Z98.890 - Other specified postprocedural states (ICD-10) H/O dilation and curettage ?Z98.890 - Other specified postprocedural states (ICD-10) History of hysteroscopy ?Z98.890 - Other specified postprocedural states (ICD-10) H/O lumbar discectomy ?Z98.890 - Other specified postprocedural states (ICD-10) History of lumbar laminectomy ?Z98.890 - Other specified postprocedural states (ICD-10) S/P trigger finger release ?Z98.890 - Other specified postprocedural states (ICD-10) Family History Other Family history of heart disease Family history of hypertension Family history of myocardial infarction Social History Within the past year, how often did you have a drink containing alcohol: never Score interpretation: A score less than 3 is consistent with normal alcohol consumption. Smoking status: Former smoker Non-prescribed substance use: denies use Highest level of school completed/degree received: high school graduate Meds Home Medications and Allergies Home Medications ?Medication ?Instructions ?Recorded ?Confirmed ?Type atorvastatin 40 mg tablet 40 mg PO QDAY 07/16/22 06/02/23 History bupropion HCl 300 mg 24 hr tablet, 300 mg PO QDAY 07/16/22 06/02/23 History extended release (Wellbutrin XL) metformin 1,000 mg tablet 1,000 mg PO BID 07/16/22 06/02/23 History metoprolol tartrate 25 mg tablet 25 mg PO BID 07/16/22 06/02/23 History omeprazole 20 mg capsule,delayed 20 mg PO QDAY 07/16/22 06/02/23 History release tizanidine 4 mg capsule (Zanaflex) 4 mg PO Q12H 07/16/22 06/02/23 History pregabalin 75 mg capsule (Lyrica) 75 mg PO BID #60 caps 03/04/23 06/02/23 Rx oxycodone-acetaminophen 7.5 mg-325 1 tab PO TID PRN pain #90 tabs 04/02/23 06/02/23 Rx mg tablet (Percocet) aripiprazole 15 mg tablet (Abilify) 15 mg PO DAILY 05/12/23 06/02/23 History ergocalciferol (vitamin D2) 50 mcg 50 mcg PO DAILY 05/12/23 06/02/23 History (2,000 unit) capsule hydralazine 25 mg tablet 25 mg PO BID 05/12/23 06/02/23 History insulin degludec 100 unit/mL (3 48 unit subcut DAILY 05/12/23 06/02/23 History mL) subcutaneous pen (Tresiba FlexTouch U-100 insulin) losartan 50 mg-hydrochlorothiazide 1 tab PO DAILY 05/12/23 06/02/23 History 12.5 mg tablet (Hyzaar) nortriptyline 75 mg capsule 75 mg PO DAILY 05/12/23 06/02/23 History semaglutide 2 mg/dose (8 mg/3 mL) 2 mg subcut QWEEK 05/12/23 06/02/23 History subcutaneous pen injector (Ozempic) oxycodone-acetaminophen 7.5 mg-325 1 tab PO TID PRN pain #90 tabs 06/02/23 Rx mg tablet (Percocet) oxycodone-acetaminophen 7.5 mg-325 1 tab PO TID PRN pain #90 tabs 07/06/23 Rx mg tablet (Percocet) oxycodone-acetaminophen 7.5 mg-325 1 tab PO TID PRN pain #90 tabs 07/30/23 Rx mg tablet (Percocet) Allergies Allergy/AdvReac Type Severity Reaction Status Date / Time No Known Drug Allergies Allergy Verified 06/02/23 06:58 Exam Constitutional Documenting provider has reviewed patient's vital signs: yes Common normals: no apparent distress, oriented x3, healthy appearing, alert and well nourished General appearance: cooperative HENMT Common normals: normocephalic, hearing grossly normal bilaterally and moist oral mucous membranes Head and scalp: normocephalic Eye Common normals: PERRL Pupil: PERRL Neck & C-Spine Common normals: full ROM General: normal visual inspection Chest Common normals: inspection of chest normal Respiratory Common normals: normal respiratory effort, no retractions and no use of accessory muscles Back & Pelvis Thoracic spine/upper back: normal to inspection and thoracic ROM normal Lumbar spine/lower back: ROM limited, pain with ROM and straight leg raise negative bilaterally Sacroiliac joints: SI joint(s) abnormal Other: pain over bilateral superior gluteal nerves, worse upon palpation positive fabers/fadirs gaenslens and thigh thrust, tender over bilateral PSIS tenderness over bilateral GTB Extremity Common normals: normal to inspection and full ROM Right lower extremity: knee joint Left lower extremity: knee joint Other: R/L knee pain, limited ROM, decrease in strength. Neuro Common normals: oriented x3, CN's II-XII intact bilaterally, moves all extremities, no focal motor deficits, no sensory deficits noted and deep tendon reflexes 2+ bilaterally Sensorium/orientation: alert Gait (neuro): antalgic Motor exam: strength 5/5 throughout and no movement abnormalities noted Psych Common normals: mental status grossly normal, thought process normal, cooperative, affect normal, speech normal and activity/motor behavior normal Speech: normal speech Thought process: normal thought process Results Additional Findings Additional findings: If on a controlled substance or opioids, I have checked an [place] report on this patient and there are no aberrancies noted in the prescribing history.??If on a controlled substance or opioid a drug screen was completed and reviewed within the last year, and if there has not been a drug screen completed we ordered one today to monitor higher risk, state monitored pain medication use. As part of providing excellent, safe, comprehensive care, the following was completed at our patient's visit: 1. A medication reconciliation and review to ensure accurate knowledge of current/active medications, including asking our patients to inform us about any [id number] medications or herbal remedies/nutritional supplements/alternative remedies. 2. A review to specifically ensure our patients have had annual screening for screening for depression, screening for tobacco use, and screening for unhealthy alcohol use. For concerning screenings had a discussion with the patient, provided patient education, and recommended follow-up with primary care provider when appropriate. If patient noted with a risk of falling, they received education on strength, gait, and balance training to prevent future risk of falling. Assessment and Plan Assessment and Plan (1) Unspecified mononeuropathy of right lower limb: (2) Unspecified mononeuropathy of left lower limb: (3) Chronic prescription opiate use: Assessment and Plan: I feel these medications are improving the patient's quality of life and allow them to tolerate activities of daily living as well as participate in recreational activity.? The patient does not report intolerable side effects. The patient is NOT opioid naive and non-pharmacologic and non-opioid treatment has failed to significantly relieve the patient's pain and improve functionality. The patient has a diagnosis that is related to a somatic or visceral pain etiology. ? ?? I reviewed with the patient the potential risks and side effects with the use of? opioid medications including but not limited to respiratory depression,? sedation, and even . I verified the patient has access to naloxone should? these effects occur. I advised the patient to avoid the use of any other? sedation substances including alcohol, THC, and benzodiazepines while? taking opioid medications due to the risk of compounding side effects and? detrimental outcomes. I reviewed the [employer], pain treatment agreement, urine? drug screen, and opioid start talking forms. The patient was advised to let? their family know they had Naloxone in case they would need to administer? the medication.? ?? A drug screen was completed within the last year, and no aberrancies were noted regarding their use of controlled substances. The patient understands they are subject to the terms and conditions of the pain contract that they have signed. ? ?? I have checked an [place] report on this patient today and there are no aberrancies noted in the prescribing history.? (4) Muscle spasm: (5) Bilateral knee pain: (6) Obesity: Assessment and Plan: The patient was counseled that proper dietary changes and consistent participation in a home exercise plan can lead to weight loss. Weight loss can help to improve functionality in patients with chronic pain.? (7) Lumbar spondylosis: (8) Spinal stenosis of lumbar region: (9) Lumbar radiculopathy: (10) Greater trochanteric bursitis: (11) Failed back syndrome: Plan right then left superior gluteal nerve thermal RFA providing no improvement per patient, however YANCY has improved from 58% to 47% recent diagnosis of uterine cancer, continue f/u with gyno-oncology continue percocet to 7.5-325mg BID-TID PRN moderate to severe pain, continues to find functional improvement without side effects. reports shes able to stand and walk for longer periods of time and complete housework/cook with assistance of medication, pain goes from 6-7 to 2-3 for around four hours. narcan discussed and prescribed continue lyrica 75mg BID continue zanaflex 4mg BID continue Wellbutrin 300mg daily briefly discussed SCS, handout provided f/u 3 months for medication management, sooner if needed
== END 2023-08-06 10:23 | disposition home or self-care (01) ==
PROVIDERS: Visit Provider Nurse Practitioner
DX: Z79.891 Long term (current) use of opiate analgesic (principal); M62.838 Other muscle spasm; M25.561 Pain in right knee; M25.562 Pain in left knee; E66.9 Obesity, unspecified; M47.816 Spondylosis without myelopathy or radiculopathy, lumbar region; M48.062 Spinal stenosis, lumbar region with neurogenic claudication; M54.16 Radiculopathy, lumbar region; M96.1 Postlaminectomy syndrome, not elsewhere classified; M70.61 Trochanteric bursitis, right hip; M70.62 Trochanteric bursitis, left hip
CPT/HCPCS: G0463

== ENCOUNTER 2023-10-28 09:41 | Outpatient (OUT) | payer MEDICARE, SELFPAY ==
--- NOTE | 2023-10-28 10:11 | PM.CN ---
Consult Note: HPI Data of Consult Patient: known to practice within the last 3 years Requesting Physician: Shama Allen NP Primary Care Provider: [facility] Consult Narrative Reason for consult: F/u Narrative: Lesli Clay a pleasant 63 year old female presents for evaluation and management of chronic low back pain and bilateral hip/buttock pain. Today pain 2/10 increasing to 8/10 with activity. Patient reports aching, pressure, burning. Patient finding benefit to current medication regimen without side effects. Patient found significant relief, greater than 80%, immediately following and 2 hours after bilateral superior gluteal nerve block but reporting no improvement from right and left superior gluteal RFA. She has failed to benefit from lumbar facet MBBs, and caudal ESIs. At last visit we discussed SCS trial which she has not thought more about. Patient reports pain has been stable. She is concerned with the cost of her percocet 7.5mg TID PRN but she could not tolerate lower dosing or less frequent dosing in the past. cc:: CC: Shama Allen NP Review of Systems ROS Status of ROS 10 or more systems reviewed and unremarkable except as noted in history and below Musculoskeletal Reports: back pain, extremity pain and joint pain PFSH PFSH Medical History Pelvic pain ?R10.2 - Pelvic and perineal pain (ICD-10) Post-menopausal bleeding ?N95.0 - Postmenopausal bleeding (ICD-10) Fibromyalgia ?M79.7 - Fibromyalgia (ICD-10) Arthritis ?M19.90 - Unspecified osteoarthritis, unspecified site (ICD-10) Neck pain ?M54.2 - Cervicalgia (ICD-10) Back pain ?M54.9 - Dorsalgia, unspecified (ICD-10) Depression ?F32.A - Depression, unspecified (ICD-10) Panic attacks ?F41.0 - Panic disorder [episodic paroxysmal anxiety] (ICD-10) COVID-19 ?U07.1 - COVID-19 (ICD-10) Dyspnea on exertion ?R06.09 - Other forms of dyspnea (ICD-10) High cholesterol ?E78.00 - Pure hypercholesterolemia, unspecified (ICD-10) Diabetes ?E11.9 - Type 2 diabetes mellitus without complications (ICD-10) Delayed recovery from anesthesia Anesthesia complication ?T88.59XA - Other complications of anesthesia, initial encounter (ICD-10) Postmenopausal ?Z78.0 - Asymptomatic menopausal state (ICD-10) RSD (reflex sympathetic dystrophy) ?G90.50 - Complex regional pain syndrome I, unspecified (ICD-10) Low back pain ?M54.50 - Low back pain, unspecified (ICD-10) Osteoarthritis ?M19.90 - Unspecified osteoarthritis, unspecified site (ICD-10) Shingles ?B02.9 - Zoster without complications (ICD-10) Anxiety ?F41.9 - Anxiety disorder, unspecified (ICD-10) Obesity ?E66.9 - Obesity, unspecified (ICD-10) Heartburn ?R12 - Heartburn (ICD-10) Acid reflux ?K21.9 - Gastro-esophageal reflux disease without esophagitis (ICD-10) Diabetes 1.5, managed as type 2 ?E13.9 - Other specified diabetes mellitus without complications (ICD-10) Hypercholesterolemia ?E78.00 - Pure hypercholesterolemia, unspecified (ICD-10) Hypertension ?I10 - Essential (primary) hypertension (ICD-10) Surgical History S/P epidural steroid injection ?Z92.241 - Personal history of systemic steroid therapy (ICD-10) History of carpal tunnel release ?Z98.890 - Other specified postprocedural states (ICD-10) History of arthroplasty of knee ?Z96.659 - Presence of unspecified artificial knee joint (ICD-10) History of fusion of cervical spine ?Z98.1 - Arthrodesis status (ICD-10) H/O hemorrhoidectomy ?Z98.890 - Other specified postprocedural states (ICD-10) History of delivery ?Z98.891 - History of uterine scar from previous surgery (ICD-10) Hx of arthroscopy of knee ?Z98.890 - Other specified postprocedural states (ICD-10) H/O repair of rotator cuff ?Z98.890 - Other specified postprocedural states (ICD-10) H/O dilation and curettage ?Z98.890 - Other specified postprocedural states (ICD-10) History of hysteroscopy ?Z98.890 - Other specified postprocedural states (ICD-10) H/O lumbar discectomy ?Z98.890 - Other specified postprocedural states (ICD-10) History of lumbar laminectomy ?Z98.890 - Other specified postprocedural states (ICD-10) S/P trigger finger release ?Z98.890 - Other specified postprocedural states (ICD-10) Family History Other Family history of heart disease Family history of hypertension Family history of myocardial infarction Social History Within the past year, how often did you have a drink containing alcohol: never Score interpretation: A score less than 3 is consistent with normal alcohol consumption. Smoking status: Former smoker Non-prescribed substance use: denies use Highest level of school completed/degree received: high school graduate Meds Home Medications and Allergies Home Medications ?Medication ?Instructions ?Recorded ?Confirmed ?Type atorvastatin 40 mg tablet 40 mg PO QDAY 07/16/22 06/02/23 History bupropion HCl 300 mg 24 hr tablet, 300 mg PO QDAY 07/16/22 06/02/23 History extended release (Wellbutrin XL) metoprolol tartrate 25 mg tablet 25 mg PO BID 07/16/22 06/02/23 History tizanidine 4 mg capsule (Zanaflex) 4 mg PO Q12H 07/16/22 06/02/23 History pregabalin 75 mg capsule (Lyrica) 75 mg PO BID #60 caps 03/04/23 06/02/23 Rx oxycodone-acetaminophen 7.5 mg-325 1 tab PO TID PRN pain #90 tabs 04/02/23 06/02/23 Rx mg tablet (Percocet) aripiprazole 15 mg tablet (Abilify) 15 mg PO DAILY 05/12/23 06/02/23 History insulin degludec 100 unit/mL (3 48 unit subcut DAILY 05/12/23 06/02/23 History mL) subcutaneous pen (Tresiba FlexTouch U-100 insulin) losartan 50 mg-hydrochlorothiazide 1 tab PO DAILY 05/12/23 06/02/23 History 12.5 mg tablet (Hyzaar) semaglutide 2 mg/dose (8 mg/3 mL) 2 mg subcut QWEEK 05/12/23 06/02/23 History subcutaneous pen injector (Ozempic) hydroxyzine pamoate 25 mg capsule 25 mg PO QID PRN anxiety 08/06/23 08/06/23 History nortriptyline 50 mg capsule 50 mg PO DAILY 08/06/23 08/06/23 History oxycodone-acetaminophen 7.5 mg-325 1 tab PO TID PRN pain #90 tabs 09/04/23 Rx mg tablet (Percocet) oxycodone-acetaminophen 7.5 mg-325 1 tab PO TID PRN pain #90 tabs 09/29/23 Rx mg tablet (Percocet) oxycodone-acetaminophen 7.5 mg-325 1 tab PO TID PRN pain #90 tabs 10/28/23 Rx mg tablet (Percocet) pregabalin 75 mg capsule (Lyrica) 75 mg PO TID #90 caps 10/28/23 Rx tizanidine 4 mg tablet 4 mg PO DAILY PRN muscle 10/28/23 Rx spasticity #30 tabs Allergies Allergy/AdvReac Type Severity Reaction Status Date / Time No Known Drug Allergies Allergy Verified 06/02/23 06:58 Exam Constitutional Documenting provider has reviewed patient's vital signs: yes Common normals: no apparent distress, oriented x3, healthy appearing, alert and well nourished General appearance: cooperative HENMT Common normals: normocephalic, hearing grossly normal bilaterally and moist oral mucous membranes Head and scalp: normocephalic Eye Common normals: PERRL Pupil: PERRL Neck & C-Spine Common normals: full ROM General: normal visual inspection Chest Common normals: inspection of chest normal Respiratory Common normals: normal respiratory effort, no retractions and no use of accessory muscles Back & Pelvis Thoracic spine/upper back: normal to inspection and thoracic ROM normal Lumbar spine/lower back: ROM limited, pain with ROM and straight leg raise negative bilaterally Sacroiliac joints: SI joint(s) abnormal Other: pain over bilateral superior gluteal nerves, worse upon palpation positive fabers/fadirs gaenslens and thigh thrust, tender over bilateral PSIS tenderness over bilateral GTB Extremity Common normals: normal to inspection and full ROM Right lower extremity: knee joint Left lower extremity: knee joint Other: R/L knee pain, limited ROM, decrease in strength. Neuro Common normals: oriented x3, CN's II-XII intact bilaterally, moves all extremities, no focal motor deficits, no sensory deficits noted and deep tendon reflexes 2+ bilaterally Sensorium/orientation: alert Gait (neuro): antalgic Motor exam: strength 5/5 throughout and no movement abnormalities noted Psych Common normals: mental status grossly normal, thought process normal, cooperative, affect normal, speech normal and activity/motor behavior normal Speech: normal speech Thought process: normal thought process Results Additional Findings Additional findings: If on a controlled substance or opioids, I have checked an [place] report on this patient and there are no aberrancies noted in the prescribing history.??If on a controlled substance or opioid a drug screen was completed and reviewed within the last year, and if there has not been a drug screen completed we ordered one today to monitor higher risk, state monitored pain medication use. As part of providing excellent, safe, comprehensive care, the following was completed at our patient's visit: 1. A medication reconciliation and review to ensure accurate knowledge of current/active medications, including asking our patients to inform us about any [id number] medications or herbal remedies/nutritional supplements/alternative remedies. 2. A review to specifically ensure our patients have had annual screening for screening for depression, screening for tobacco use, and screening for unhealthy alcohol use. For concerning screenings had a discussion with the patient, provided patient education, and recommended follow-up with primary care provider when appropriate. If patient noted with a risk of falling, they received education on strength, gait, and balance training to prevent future risk of falling. Assessment and Plan Assessment and Plan (1) Failed back syndrome: (2) Unspecified mononeuropathy of right lower limb: (3) Unspecified mononeuropathy of left lower limb: (4) Chronic prescription opiate use: Assessment and Plan: I feel these medications are improving the patient's quality of life and allow them to tolerate activities of daily living as well as participate in recreational activity.? The patient does not report intolerable side effects. The patient is NOT opioid naive and non-pharmacologic and non-opioid treatment has failed to significantly relieve the patient's pain and improve functionality. The patient has a diagnosis that is related to a somatic or visceral pain etiology. ? ?? I reviewed with the patient the potential risks and side effects with the use of? opioid medications including but not limited to respiratory depression,? sedation, and even . I verified the patient has access to naloxone should? these effects occur. I advised the patient to avoid the use of any other? sedation substances including alcohol, THC, and benzodiazepines while? taking opioid medications due to the risk of compounding side effects and? detrimental outcomes. I reviewed the [employer], pain treatment agreement, urine? drug screen, and opioid start talking forms. The patient was advised to let? their family know they had Naloxone in case they would need to administer? the medication.? ?? A drug screen was completed within the last year, and no aberrancies were noted regarding their use of controlled substances. The patient understands they are subject to the terms and conditions of the pain contract that they have signed. ? ?? I have checked an [place] report on this patient today and there are no aberrancies noted in the prescribing history.? (5) Muscle spasm: (6) Bilateral knee pain: (7) Obesity: Assessment and Plan: The patient was counseled that proper dietary changes and consistent participation in a home exercise plan can lead to weight loss. Weight loss can help to improve functionality in patients with chronic pain.? (8) Lumbar spondylosis: (9) Spinal stenosis of lumbar region: (10) Lumbar radiculopathy: (11) Greater trochanteric bursitis: Plan increase pregabalin 75mg TID, risks vs benefits reviewed continue percocet to 7.5-325mg BID-TID PRN moderate to severe pain, continues to find functional improvement without side effects. reports shes able to stand and walk for longer periods of time and complete housework/cook with assistance of medication, pain goes from 6-7 to 2-3 for around four hours. narcan discussed and prescribed at previous visit continue zanaflex 4mg HS PRN pain/spasms continue Wellbutrin 300mg daily briefly discussed SCS, handout provided again as patient did not review after last visit f/u 3 months for medication management, sooner if needed
== END 2023-10-28 09:42 | disposition home or self-care (01) ==
PROVIDERS: Visit Provider Nurse Practitioner
DX: M96.1 Postlaminectomy syndrome, not elsewhere classified (principal); Z79.891 Long term (current) use of opiate analgesic; M62.838 Other muscle spasm; M25.561 Pain in right knee; M25.562 Pain in left knee; E66.9 Obesity, unspecified; M47.816 Spondylosis without myelopathy or radiculopathy, lumbar region; M48.062 Spinal stenosis, lumbar region with neurogenic claudication; M54.16 Radiculopathy, lumbar region; M70.60 Trochanteric bursitis, unspecified hip
CPT/HCPCS: G0463

== ENCOUNTER 2024-01-27 10:02 | Outpatient (OUT) | payer MEDICARE, SELFPAY ==
--- NOTE | 2024-01-27 10:20 | PM.CN ---
Consult Note: HPI Data of Consult Patient: known to practice within the last 3 years Requesting Physician: Shama Allen NP Primary Care Provider: [facility] Consult Narrative Reason for consult: F/u Narrative: Lesli Clay a pleasant 63 year old female presents for evaluation and management of chronic low back pain and bilateral hip/buttock pain. Today pain 2/10 increasing to 8/10 with activity. Patient reports aching, pressure, burning. Patient finding benefit to current medication regimen without side effects. Patient found significant relief, greater than 80%, immediately following and 2 hours after bilateral superior gluteal nerve block but reporting no improvement from right and left superior gluteal RFA. She has failed to benefit from lumbar facet MBBs, and caudal ESIs. At last visit we discussed SCS trial which she has not thought more about. Patient reports pain has been stable. She is concerned with the cost of her percocet 7.5mg TID PRN but she could not tolerate lower dosing or less frequent dosing in the past. cc:: CC: Shama Allen NP Review of Systems ROS Status of ROS 10 or more systems reviewed and unremarkable except as noted in history and below Musculoskeletal Reports: back pain, extremity pain and joint pain PFSH PFSH Medical History Pelvic pain ?R10.2 - Pelvic and perineal pain (ICD-10) Post-menopausal bleeding ?N95.0 - Postmenopausal bleeding (ICD-10) Fibromyalgia ?M79.7 - Fibromyalgia (ICD-10) Arthritis ?M19.90 - Unspecified osteoarthritis, unspecified site (ICD-10) Neck pain ?M54.2 - Cervicalgia (ICD-10) Back pain ?M54.9 - Dorsalgia, unspecified (ICD-10) Depression ?F32.A - Depression, unspecified (ICD-10) Panic attacks ?F41.0 - Panic disorder [episodic paroxysmal anxiety] (ICD-10) COVID-19 ?U07.1 - COVID-19 (ICD-10) Dyspnea on exertion ?R06.09 - Other forms of dyspnea (ICD-10) High cholesterol ?E78.00 - Pure hypercholesterolemia, unspecified (ICD-10) Diabetes ?E11.9 - Type 2 diabetes mellitus without complications (ICD-10) Delayed recovery from anesthesia Anesthesia complication ?T88.59XA - Other complications of anesthesia, initial encounter (ICD-10) Postmenopausal ?Z78.0 - Asymptomatic menopausal state (ICD-10) RSD (reflex sympathetic dystrophy) ?G90.50 - Complex regional pain syndrome I, unspecified (ICD-10) Low back pain ?M54.50 - Low back pain, unspecified (ICD-10) Osteoarthritis ?M19.90 - Unspecified osteoarthritis, unspecified site (ICD-10) Shingles ?B02.9 - Zoster without complications (ICD-10) Anxiety ?F41.9 - Anxiety disorder, unspecified (ICD-10) Obesity ?E66.9 - Obesity, unspecified (ICD-10) Heartburn ?R12 - Heartburn (ICD-10) Acid reflux ?K21.9 - Gastro-esophageal reflux disease without esophagitis (ICD-10) Diabetes 1.5, managed as type 2 ?E13.9 - Other specified diabetes mellitus without complications (ICD-10) Hypercholesterolemia ?E78.00 - Pure hypercholesterolemia, unspecified (ICD-10) Hypertension ?I10 - Essential (primary) hypertension (ICD-10) Surgical History S/P epidural steroid injection ?Z92.241 - Personal history of systemic steroid therapy (ICD-10) History of carpal tunnel release ?Z98.890 - Other specified postprocedural states (ICD-10) History of arthroplasty of knee ?Z96.659 - Presence of unspecified artificial knee joint (ICD-10) History of fusion of cervical spine ?Z98.1 - Arthrodesis status (ICD-10) H/O hemorrhoidectomy ?Z98.890 - Other specified postprocedural states (ICD-10) History of delivery ?Z98.891 - History of uterine scar from previous surgery (ICD-10) Hx of arthroscopy of knee ?Z98.890 - Other specified postprocedural states (ICD-10) H/O repair of rotator cuff ?Z98.890 - Other specified postprocedural states (ICD-10) H/O dilation and curettage ?Z98.890 - Other specified postprocedural states (ICD-10) History of hysteroscopy ?Z98.890 - Other specified postprocedural states (ICD-10) H/O lumbar discectomy ?Z98.890 - Other specified postprocedural states (ICD-10) History of lumbar laminectomy ?Z98.890 - Other specified postprocedural states (ICD-10) S/P trigger finger release ?Z98.890 - Other specified postprocedural states (ICD-10) Family History Other Family history of heart disease Family history of hypertension Family history of myocardial infarction Social History Within the past year, how often did you have a drink containing alcohol: never Score interpretation: A score less than 3 is consistent with normal alcohol consumption. Smoking status: Former smoker Non-prescribed substance use: denies use Highest level of school completed/degree received: high school graduate Meds Home Medications and Allergies Home Medications ?Medication ?Instructions ?Recorded ?Confirmed ?Type atorvastatin 40 mg tablet 40 mg PO QDAY 07/16/22 06/02/23 History bupropion HCl 300 mg 24 hr tablet, 300 mg PO QDAY 07/16/22 06/02/23 History extended release (Wellbutrin XL) metoprolol tartrate 25 mg tablet 25 mg PO BID 07/16/22 06/02/23 History tizanidine 4 mg capsule (Zanaflex) 4 mg PO Q12H 07/16/22 06/02/23 History pregabalin 75 mg capsule (Lyrica) 75 mg PO BID #60 caps 03/04/23 06/02/23 Rx oxycodone-acetaminophen 7.5 mg-325 1 tab PO TID PRN pain #90 tabs 04/02/23 06/02/23 Rx mg tablet (Percocet) aripiprazole 15 mg tablet (Abilify) 15 mg PO DAILY 05/12/23 06/02/23 History insulin degludec 100 unit/mL (3 48 unit subcut DAILY 05/12/23 06/02/23 History mL) subcutaneous pen (Tresiba FlexTouch U-100 insulin) losartan 50 mg-hydrochlorothiazide 1 tab PO DAILY 05/12/23 06/02/23 History 12.5 mg tablet (Hyzaar) semaglutide 2 mg/dose (8 mg/3 mL) 2 mg subcut QWEEK 05/12/23 06/02/23 History subcutaneous pen injector (Ozempic) hydroxyzine pamoate 25 mg capsule 25 mg PO QID PRN anxiety 08/06/23 08/06/23 History nortriptyline 50 mg capsule 50 mg PO DAILY 08/06/23 08/06/23 History oxycodone-acetaminophen 7.5 mg-325 1 tab PO TID PRN pain #90 tabs 09/04/23 Rx mg tablet (Percocet) oxycodone-acetaminophen 7.5 mg-325 1 tab PO TID PRN pain #90 tabs 09/29/23 Rx mg tablet (Percocet) oxycodone-acetaminophen 7.5 mg-325 1 tab PO TID PRN pain #90 tabs 10/28/23 Rx mg tablet (Percocet) pregabalin 75 mg capsule (Lyrica) 75 mg PO TID #90 caps 10/28/23 Rx tizanidine 4 mg tablet 4 mg PO DAILY PRN muscle 10/28/23 Rx spasticity #30 tabs oxycodone-acetaminophen 7.5 mg-325 1 tab PO TID PRN pain #90 tabs 12/03/23 Rx mg tablet (Percocet) oxycodone-acetaminophen 7.5 mg-325 1 tab PO TID PRN pain #90 tabs 01/04/24 Rx mg tablet (Percocet) Allergies Allergy/AdvReac Type Severity Reaction Status Date / Time No Known Drug Allergies Allergy Verified 06/02/23 06:58 Exam Constitutional Documenting provider has reviewed patient's vital signs: yes Common normals: no apparent distress, oriented x3, healthy appearing, alert and well nourished General appearance: cooperative [facility] Common normals: normocephalic, hearing grossly normal bilaterally and moist oral mucous membranes Head and scalp: normocephalic Eye Common normals: PERRL Pupil: PERRL Neck & C-Spine Common normals: full ROM General: normal visual inspection Chest Common normals: inspection of chest normal Respiratory Common normals: normal respiratory effort, no retractions and no use of accessory muscles Back & Pelvis Thoracic spine/upper back: normal to inspection and thoracic ROM normal Lumbar spine/lower back: ROM limited, pain with ROM and straight leg raise negative bilaterally Sacroiliac joints: SI joint(s) abnormal Other: pain over bilateral superior gluteal nerves, worse upon palpation positive fabers/fadirs gaenslens and thigh thrust, tender over bilateral PSIS tenderness over bilateral GTB Extremity Common normals: normal to inspection and full ROM Right lower extremity: knee joint Left lower extremity: knee joint Other: R/L knee pain, limited ROM, decrease in strength. Neuro Common normals: oriented x3, CN's II-XII intact bilaterally, moves all extremities, no focal motor deficits, no sensory deficits noted and deep tendon reflexes 2+ bilaterally Sensorium/orientation: alert Gait (neuro): antalgic Motor exam: strength 5/5 throughout and no movement abnormalities noted Psych Common normals: mental status grossly normal, thought process normal, cooperative, affect normal, speech normal and activity/motor behavior normal Speech: normal speech Thought process: normal thought process Results Additional Findings Additional findings: If on a controlled substance or opioids, I have checked an [place] report on this patient and there are no aberrancies noted in the prescribing history.??If on a controlled substance or opioid a drug screen was completed and reviewed within the last year, and if there has not been a drug screen completed we ordered one today to monitor higher risk, state monitored pain medication use. As part of providing excellent, safe, comprehensive care, the following was completed at our patient's visit: 1. A medication reconciliation and review to ensure accurate knowledge of current/active medications, including asking our patients to inform us about any [id number] medications or herbal remedies/nutritional supplements/alternative remedies. 2. A review to specifically ensure our patients have had annual screening for screening for depression, screening for tobacco use, and screening for unhealthy alcohol use. For concerning screenings had a discussion with the patient, provided patient education, and recommended follow-up with primary care provider when appropriate. If patient noted with a risk of falling, they received education on strength, gait, and balance training to prevent future risk of falling. Assessment and Plan Assessment and Plan (1) Failed back syndrome: (2) Unspecified mononeuropathy of right lower limb: (3) Unspecified mononeuropathy of left lower limb: (4) Chronic prescription opiate use: Assessment and Plan: I feel these medications are improving the patient's quality of life and allow them to tolerate activities of daily living as well as participate in recreational activity.? The patient does not report intolerable side effects. The patient is NOT opioid naive and non-pharmacologic and non-opioid treatment has failed to significantly relieve the patient's pain and improve functionality. The patient has a diagnosis that is related to a somatic or visceral pain etiology. ? ?? I reviewed with the patient the potential risks and side effects with the use of? opioid medications including but not limited to respiratory depression,? sedation, and even . I verified the patient has access to naloxone should? these effects occur. I advised the patient to avoid the use of any other? sedation substances including alcohol, THC, and benzodiazepines while? taking opioid medications due to the risk of compounding side effects and? detrimental outcomes. I reviewed the [employer], pain treatment agreement, urine? drug screen, and opioid start talking forms. The patient was advised to let? their family know they had Naloxone in case they would need to administer? the medication.? ?? A drug screen was completed within the last year, and no aberrancies were noted regarding their use of controlled substances. The patient understands they are subject to the terms and conditions of the pain contract that they have signed. ? ?? I have checked an [place] report on this patient today and there are no aberrancies noted in the prescribing history.? (5) Muscle spasm: (6) Bilateral knee pain: (7) Obesity: Assessment and Plan: The patient was counseled that proper dietary changes and consistent participation in a home exercise plan can lead to weight loss. Weight loss can help to improve functionality in patients with chronic pain.? (8) Lumbar spondylosis: (9) Spinal stenosis of lumbar region: (10) Lumbar radiculopathy: (11) Greater trochanteric bursitis: Plan increase pregabalin 100mg TID, risks vs benefits reviewed continue percocet to 7.5-325mg BID-TID PRN moderate to severe pain, continues to find functional improvement without side effects. reports shes able to stand and walk for longer periods of time and complete housework/cook with assistance of medication, pain goes from 6-7 to 2-3 for around four hours. narcan discussed and prescribed at previous visit continue zanaflex 4mg HS PRN pain/spasms continue Wellbutrin 300mg daily briefly discussed SCS, pt would like to revisit next appointment continue f/u with orthopedics for shoulder MRI/potential surgery, pt verbalized agreement to call if surgery scheduled and stop our opioids while surgeon manages post-op pain f/u 3 months for medication management, sooner if needed
--- OUTSIDE RECORDS SUMMARY | 2024-01-27 10:23 | XMS_ITS | CCD ---
Author Organization [facility] [place] [facility] [place] Care Team Providers Care Clean Room Assembler Name Role Phone QUE BLAKE Unavailable Unavailable GECHASEINGQUE Unavailable Unavailable SELF, REFERRED Unavailable Unavailable OLIVE, ROSALES Unavailable Unavailable [facility] Unavailable Unavailable QUE BLAKE Unavailable Unavailable WIEPKING, LAUREN Unavailable Unavailable SELF, REFERRED Unavailable Unavailable JULIEN GARCÍA Unavailable Unavailable OLIVE, ROSALES Unavailable Unavailable QUE BLAKE Unavailable Unavailable QUE BLAKE Unavailable Unavailable QUE BLAKE Unavailable Unavailable OLIVE, ROSALES Unavailable Unavailable Clifford Munoz Jr. Unavailable [phone] Clifford Munoz Unavailable Lili Burgos Unavailable [facility] Unava ilable OLIVIER ., DR ADAM Liu Admitting Unavailable AGUAYO ., DR ADAM Liu Attending Unavailable HERNANDEZ ., ALICIA Consulting Unavailable LAKSHMIPATHY ., NARENDRANATH Consulting Daphne vailable [facility] Unava ilable LAKSHMIPATHY ., NARENDRANATH Admitting Daphne vailable LAKSHMIPATHY ., NARENDRALPHATH Attending Daphne vailable [facility] Unava ilable DR BLANE THOMAS Consulting Unavailable HERNANDEZ ., ALICIA Admitting Unavailable HERNANDEZ .ALICIA Attending Unavailable HERNANDEZ ., ALICIA Consulting Unavailable [facility] Unava ilable HALKER ., AJSON Attending Unavailable HALKER ., JASON Consulting Unavailable LAKSHMIPATHY ., NARENDRANATH Admitting Daphne vailable [facility] Unava ilable HALKER ., JASON Admitting Unavailable HALKER ., JASON Attending Unavailable LAKSHMIPATHY ., NARENDRANATH Consulting Daphne vailable [facility] Unava ilable AGUAYO ., DR ADAM Liu Admitting Unavailable AGUAYO ., DR ADAM Liu Attending Unavailable HERNANDEZ ., ALICIA Consulting Unavailable [facility] Unava ilable HERNANDEZ ., ALICIA Consulting Unavailable AGUAYO ., DR ADAM Liu Attending Unavailable AGUAYO ., DR ADAM Liu Admitting Unavailable [facility] Unava ilable AGUAYO ., DR ADAM Liu Admitting Unavailable AGUAYO ., DR ADAM Liu Attending Unavailable HERNANDEZ ., ALICIA Consulting Unavailable [facility] Unava ilable LAKSHMIPATHY ., NARENDRANATH Admitting Daphne vailable LAKSHMIPATHY ., NARENDRANATH Attending Daphne vailable LAKSHMIPATHY ., NARENDRANATH Consulting Daphne vailable Martine Tobias Unavailable Rumschlag, DO Kalie Primary Care Provider Rummerry, DO Kalie Attending Provider Amanda, DO Wong G Primary Care Provider UMU Tobias Attending Provider Rumschlag, DO Kalie Primary Care Provider Rummerry, DO Kalie Attending Provider Stoney Turner Unavailable Rumschlag, DO Kalie Primary Care Provider Rumschlag, DO Kalie Attending Provider Shawn Webb Attending Provider Lili Burgos Admitting Unavailable Lili Burgos Attending Unavailable AmandaGregg irvingee G Primary Care Unavailable Martine Tobias Attending Unavailable Martine Tobias Admitting Unavailable Judith Patel G Primary Care Unavailable Shawn Webb Admitting Unavailable Shawn Webb Attending Unavailable Rumschlanelly, Kalie Admitting Unavailable Rumschlag, Kalie Primary Care Unavailable Rumcurtislanelly, Kalie Attending Unavailable Jacob Tobiasssica Admitting Unavailable Martine Tobias Attending Unavailable Gregg Patelee G Primary Care Unavailable Martine Tobias Attending Unavailable Gregg Patelee G Primary Care Unavailable Martine Tobias Admitting Unavailable Martine Tobias Attending Unavailable Judith Patel Primary Care Unavailable Martine Tobias Admitting Unavailable WOOD FRANCO Attending Unavailable AMANDA, JUDITH Cuenca Referring Unavailable AMANDAGREGGEE G Primary Care Unavailable Kohler DIRECT MARKETING REPRESENTATIVE - REGISTERED ART THERAPIST, Pastora Nunes Primary Care P rovyder PASTORA KOHLER Primary Care Unavailab le ERIKA, SAYEEMA N Referring Unavailable Jennifer Cabrera MD Primary Care Provider Kohler MOLDING SUPERVISOR, Pastora Nunes Unavailable Kohler MOLDING SUPERVISOR, Pastora Nunes Unavailable PASTORA KOHLER A Primary Care Unavailab le ERIKA, SAYEEMA N Referring Unavailable LOGAN, HEMINDERMEET Attending Unavailable LOGAN, HEMINDERMEET Referring Unavailable JUAN JOSE, PASTORA A Primary Care Unavailab le LOGAN, HEMINDERMEET Admitting Unavailable LOGAN, HEMINDERMEET Attending Unavailable JUAN JOSE, PASTORA A Primary Care Unavailab le KOHLER, PASTORA A Primary Care Unavailab le DAMEL, SAYEEMA N Admitting Unavailable DAUDI, SAYEEMA N Attending Unavailable LOGAN, HEMINDERMEET Referring Unavailable LOGAN, HEMINDERMEET Attending Unavailable JUAN JOSE, PASTORA A Primary Care Unavailab le LOGAN, HEMINDERMEET Referring Unavailable LOGAN, HEMINDERMEET Attending Unavailable JUAN JOSE, PASTORA A Primary Care Unavailab le DAUDI, SAYEEMA N Attending Unavailable DAUDI, SAYEEMA N Referring Unavailable KOHLER, PASTORA A Primary Care Unavailab le DAUDI, SAYEEMA N Referring Unavailable KOHLER, PASTORA A Primary Care Unavailab le KOHLER, PASTORA A Primary Care Unavailab le DAUDI, SAYEEMA N Referring Unavailable LOGAN, HEMINDERMEET Attending Unavailable LOGAN, HEMINDERMEET Referring Unavailable KOHLER, PASTORA A Primary Care Unavailab le WOOD FRANCO Attending Unavailable WOOD FRANCO Referring Unavailable JUDITH PATEL Primary Care Unavailable WOOD FRANCO Attending Unavailable WOOD FRANCO Referring Unavailable AMANDA, JUDITH G Primary Care Unavailable WOOD FRANCO Referring Unavailable AMANDA, JUDITH G Primary Care Unavailable AKANKSHA NICKERSON Attending Unavailable AMANDA, JUDITH G Referring Unavailable AMANDA, JUDITH G Primary Care Unavailable BOBBI PRADHAN Attending Unavailable AMANDA, JUDITH G Referring Unavailable AMANDA, JUDITH G Primary Care Unavailable AKANKSHA NICKERSON Attending Unavailable AMANDA, JUDITH G Referring Unavailable AMANDA, JUDITH G Primary Care Unavailable AKANKSHA NICKERSON Attending Unavailable AMANDA, JUDITH G Referring Unavailable AMANDA, JUDITH G Primary Care Unavailable KRISHANAKANKSHA LOZANO Attending Unavailable AMANDA, JUDITH G Referring Unavailable AMANDA, JUDITH G Primary Care Unavailable AMANDA, JUDITH G Attending Unavailable SHAWN WEBB Attending Unavailable PASTORA KOHLER Attending Unavailab le SHAWN WEBB Attending Unavailable JENNIFER CABRERA Attending Unavailable JERI MAGAÑA Attending Unavailable JENNIFER CABRERA Referring Unavailable LAUREN TORRES Attending Unavailable LAUREN TORRES Referring Unavailable WALLY, LAUREN Bloom Referring Unavailable WALLY, LAUREN Bloom Attending Unavailable LAUREN TORRES Attending Unavailable WALLY, LAUREN Bloom Referring Unavailable PASTORA KOHLER Attending Unavailab le Medications Current Medications Medication Drug Class(es) Dates [...] 90 days PAP Active acetaminophen 325 mg oral tablet (1 source) Start: 06-30-2023 acetaminophen (TYLENOL) tablet 650 mg acetaminophen 325 mg / oxyCODONE hydrochloride 7.5 mg oral tablet (20 sources) Opioid Agonist Start: 04-06-2023 take 1 tablet by mouth three times daily as needed Oxycodone-Acetaminop hen 7.5-325 mg tablet Active 1 TAB PO Three times daily as needed April 06, 2023 12:00am Start: 01-07-2023 take 1 tablet by mickey th every eight hours as needed for pain oxyCODONE-acetaminophen (PERCOCET) 7.5-3 25 MG per tablet Take 1 tablet by mouth every 8 hours as needed for Pain. 0 01/07/2023 Active Start: 12-10-2022 take 1 tablet by mickey th three times daily as needed oxyCODONE-acetaminophen (Percocet) 5-325 MG tablet Take 1 tablet by mouth 3 (three) times a day as needed. 12/10/2022 Active Start: 01-03-2021 End: 10-30-2022 take 1 tablet by mouth every six hours as needed for pain Oxycodone-Acetaminophen (Percocet) 5-325 mg tablet Discontinued 1 TAB PO Q6H as needed for left hip pain 28 January 03, 2021 October 30, 2022 8:55am [id number] 200 actuat albuterol 0.09 mg/actuat metered dose inhaler (2 sources) beta2-Adrenergic Agonist Start: 01-19-2024 End: 01-18-2025 take 2 puff(s) by inhalation every four hours for wheezing albuterol HFA 90 mcg/act inhaler Indications: Wheezing Inhale 2 puffs every 4 (four) hours if needed for wheezing 18 g 01/19/2024 01/18/2025 Active ALPRAZolam 0.5 mg oral tablet (14 sources) Benzodiazepine ALPRAZolam (Xanax) 0.5 MG tablet daily as needed Active amoxicillin 875 mg / clavulanate 125 mg oral tablet (2 sources) Penicillin-class Antibacterial Start: 01-19-2024 End: 01-26-2024 take 1 tablet by mouth in the morning amoxicillin-clavu lanate (Augmentin) 875-125 MG tablet Indications: Bronchitis Take 1 tablet (875 mg) by mouth in the morning and 1 tablet (875 mg) before bedtime. Do all this for 7 days. 14 tablet 01/19/2024 01/26/2024 Active ARIPiprazole 15 mg oral tablet (20 sources) Atypical Antipsychotic Start: 04-06-2023 take 1 tablet by mouth once daily Aripiprazole 15 mg tablet Active 15 MG PO Daily April 06, 2023 12:00am Start: 01-28-2023 take 1 tablet by mickey th every twenty-four hours ARIPiprazole (ABILIFY) 15 MG tablet Take 1 tablet by mouth every 24 hours 0 01/28/2023 Active Start: 12-17-2020 End: 04-06-2023 take 1 tablet by mouth once daily Aripiprazole 10 mg t ablet Discontinued 10 MG PO Daily December 16, 2020 11:00pm April 06, 2023 4:24pm atorvastatin 40 mg oral tablet (20 sources) HMG-CoA Reductase Inhibitor Start: 08-04-2019 take 1 tablet by mouth once daily atorvastatin (Lipitor) 40 MG tablet Indications: Mixed hyperlipidemia (CMS/HCC) TAKE 1 TABLET BY MOUTH EVERY DAY 90 tablet 3 02/12/2023 Active benzonatate 100 mg oral capsule (2 sources) Non-narcotic Antitussive Start: 01-19-2024 End: 01-26-2024 take 1 capsule by mouth three times daily as needed for cough benzonatate (Tessalon Perles) 100 MG capsule Indications: Bronchitis Take 1 capsule (100 mg) by mouth 3 (three) times a day as needed for cough for up to 7 days Do not crush or chew. 20 capsule 01/19/2024 01/26/2024 Active 24 hr buPROPion hydrochloride 300 mg extended release oral tablet (20 sources) Aminoketone Start: 12-17-2020 take 1 tablet by mouth once daily Bupropion Hcl 300 mg tablet extended release 24 hr Active 300 MG PO Daily December 16, 2020 11:00pm cholecalciferol 0.05 mg oral tablet (20 sources) Vitamin D Start: 04-06-2023 take 1 tablet by mouth once daily Cholecalciferol (Vitamin D3) 50 mcg (2,000 unit) tablet Active 100 MCG PO Daily April 06, 2023 12:00am Start: 08-01-2022 Start: 08-01-2022 take 1 capsule by [facility] every week Start: 08-01-2022 take 1 capsule by [facility] every week Cholecalciferol 1.25 MG (49953 UT) 1 capsule Orally weekly for 56 days Then OtC 4000 u daily therafter Jul, Active take 2 tablets by [facility] every twenty-four hours Vitamin D3 50 MCG (2000 UT) 2 tablets Orally Once a day Not-Taking/PRN take 1 capsule by [facility] every week Cholecalciferol 100 MCG (4000 UT) 1 capsule Orally weekly for 56 days Then OtC 4000 u daily therafter Active take 1 capsule by [facility] every week Cholecalciferol 50 MCG (2000 UT) 1 capsule Orally weekly for 56 days Then OtC 4000 u daily therafter Active take 1 capsule by [facility] every week Cholecalciferol 1.25 MG (97594 UT) 1 capsule Orally weekly for 56 days Then OtC 4000 u daily therafter Active clotrimazole 10 mg/ml topica l cream (20 sources) Azole Antifungal Clotrimazole 1 % 1 application Externally Twice a day as needed Active Clotrimazole 1 % 1 application Externally Twice a day Active 24 hr empagliflozin 12.5 mg / metFORMIN hydrochloride 1000 mg extended release oral tablet (3 sources) Biguanide, Sodium-Glucose Cotransporter 2 Inhibitor Start: 02-03-2023 take 2 tablets by mouth once daily at breakfast Synjardy XR 12.5-1000 MG 2 tablets with breakfast Orally Once a day for 30 days samples in office x 4-- knows to hold metformin while on samples Jan, Active take 1 tablet by mouth at bedtim e Empagliflozin-metFORMIN HCl ER (SYNJARDY XR) 12.5-1000 MG TB24 Take 1 tablet by mouth in the morning and at bedtime 0 Active ergocalciferol 1.25 mg oral capsule (14 sources) Provitamin D2 Compound Start: 08-01-2022 take 1 capsule by mouth every week ergocalciferol (Vitamin D2) 1.25 MG (85811 UT) capsule TAKE 1 CAPSULE BY MOUTH WEEKLY FOR 56 DAYS 08/01/2022 Active gabapentin 300 mg oral capsule (14 sources) Anti-epileptic Agent gabapentin (Neurontin) 300 MG capsule Active hydroCHLOROthiazide 12.5 mg / lisinopril 20 mg oral tablet (1 source) Thiazide Diuretic, Angiotensin Converting Enzyme Inhibitor lisinopril-hydroCH LOROthiazide (PRINZIDE;ZESTORET IC) 20-12.5 MG per tablet hydroCHLOROthiazide 12.5 mg / losartan potassium 50 mg oral tablet (20 sources) Thiazide Diuretic, Angiotensin 2 Receptor Karrie Start: 05-24-2023 End: 12-06-2023 take 1 tablet by mouth once daily losartan-hydroCHLO ROthiazide (Hyzaar) 50-12.5 MG tablet Indications: Primary hypertension (CMS/HCC) Take 1 tablet by mouth Daily 90 tablet 1 12/07/2023 Active take 1 tablet by mickey th every twenty-four hours Losartan Potassium-HCTZ 50-12.5 MG 1 tab let Orally Once a day Active take 1 tablet by mickey th every twenty-four hours hydrOXYzine hydrochloride 10 mg oral tablet (19 sources) Antihistamine Start: 05-11-2023 take 1 tablet by mouth three times daily as needed Hydroxyzine Hcl 10 mg tablet Active 10 MG PO Three times daily as needed May 10, 2023 11:00pm Start: 04-22-2023 take 1 capsule by mo [facility] three times daily as needed hydrOXYzine pamoate (Vistaril) 25 MG capsule Take 25 mg by mouth 3 (three) times a day as needed 04/22/2023 Active Start: 04-22-2023 take 1 capsule by mo uth four times daily as needed hydrOXYzine pamoate (VISTARIL) 25 MG capsule Take 1 capsule by mouth 4 times daily as needed 0 04/22/2023 Active 3 ml insulin aspart, human 100 unt/ml pen injector (8 sources) Insulin Analog Start: 04-07-2023 FIASP FLEXTOUC H 100 UNIT/ML SOPN Inject into the skin 4 times daily (after meals and at bedtime) Inject per sliding scale 0 04/07/2023 Active Start: 04-07-2023 End: 05-11-2023 Insulin Aspart (Niacinamide) (Fiasp Flextouch U-100 Insulin) 100 unit/mL (3 mL) insulin pen Active 1 sliding scale dose SUBCUT Use as Directed May 11, 2023 12:00pm PAP approved thru 02/16/2024 Corrective scale AC/HS 1:50, QID. Expect up to 30 u per day insulin degludec 100 unt/ml injectable solution (20 sources) Insulin Analog Start: 05-16-2023 insulin deglud ec (Tresiba) 100 UNIT/ML injection Indications: Type 2 diabetes mellitus with hyperglycemia, with long-term current use of insulin ([facility]) Inject 48 Units under the skin at bedtime 05/16/2023 Active Start: 04-15-2022 inject 54 [IU] by desai bcutaneous injection once daily as needed Tresiba FlexTouch [...] to 70 u per day Sep, Active Insulin Degludec 100 UNIT/ML SOLN Inject 52 mg into the skin daily 0 Active Insulin Degludec (Tresiba Flextouch U-100) 100 unit/mL (3 mL) insulin pen (15 sources) Start: 12-30-2023 Insulin Deglud ec (Tresiba Flextouch U-100) 100 unit/mL (3 mL) insulin pen Active 48 UNIT SUBCUT Daily December 30, 2023 9:53am PAP approved thru 02/16/2024 Start: 09-23-2023 End: 12-30-2023 Insulin Degludec (Tresiba Fl extouch U-100) 100 unit/mL (3 mL) insulin pen Discontinued 50 UNIT SUBCUT Daily September 23, 2023 1:35pm December 30, 2023 9:54am PAP approved thru 02/16/2024 Start: 09-23-2023 Insulin Deglud ec (Tresiba Flextouch U-100) 100 unit/mL (3 mL) insulin pen Active 50 UNIT SUBCUT Daily September 23, 2023 2:35pm PAP approved thru 02/16/2024 Start: 05-11-2023 End: 09-23-2023 Insulin Degludec (Tresiba Fl extouch U-100) 100 unit/mL (3 mL) insulin pen Discontinued 48 UNIT SUBCUT Daily May 11, 2023 11:57am September 23, 2023 1:37pm PAP approved thru 02/16/2024 Start: 05-11-2023 End: 09-23-2023 Insulin Degludec (Tresiba Fl extouch U-100) 100 unit/mL (3 mL) insulin pen Discontinued 48 UNIT SUBCUT Daily May 11, 2023 12:57pm September 23, 2023 2:37pm PAP approved thru 02/16/2024 Start: 05-11-2023 Insulin Deglud ec (Tresiba Flextouch U-100) 100 unit/mL (3 mL) insulin pen Active 48 UNIT SUBCUT Daily May 11, 2023 12:57pm PAP approved thru 02/16/2024 Start: 05-11-2023 End: 05-11-2023 Insulin Degludec (Tresiba Fl extouch U-100) 100 unit/mL (3 mL) insulin pen Discontinued 50 UNIT SUBCUT Daily May 11, 2023 10:44am May 11, 2023 12:01pm Start: 05-11-2023 End: 05-11-2023 Insulin Degludec (Tresiba [...] UNIT SUBCUT Daily April 06, 2023 12:00am May 11, 2023 10:50am Start: 04-06-2023 End: 05-11-2023 Insulin Degludec (Tresiba Fl extouch U-100) 100 unit/mL (3 mL) insulin pen Discontinued 54 UNIT SUBCUT Daily April 06, 2023 1:00am May 11, 2023 11:50am Start: 04-06-2023 Insulin Deglud ec (Tresiba Flextouch U-100) 100 unit/mL (3 mL) insulin pen Active 54 UNIT SUBCUT Daily April 06, 2023 12:00am isopropyl alcohol 0.7 ml/ml medicated pad (1 source) Alcohol Swabs PA DS megestrol acetate 40 mg oral tablet (1 source) Progestin Start: 06-26-2023 End: 07-26-2023 take 4 tablets by mouth twice daily megestrol (MEGACE) 40 MG tablet Indications: Endometrial cancer (HCC) Take 4 tablets by mouth 2 times daily 240 tablet 0 06/26/2023 07/26/2023 Active metFORMIN hydrochloride 1000 mg oral tablet (20 sources) Biguanide Start: 12-21-2023 take 1 tablet by mouth twice daily at mealtime Metformin 1,000 mg tablet Active 0 .ROUTE .COMPLEX 200 December 21, 2023 7:57am TAKE 1 TABLET BY MOUTH TWICE DAILY WITH A MEAL Start: 12-17-2020 End: 12-21-2023 take 1 tablet by mouth twice daily Metformin 1,000 mg tablet Discontinued 1000 MG PO Twice daily December 16, 2020 11:00pm December 21, 2023 7:57am metFORMIN (Gluco phage) 1000 MG tablet 1 (one) time each day at the same time. Active metoprolol tartrate 25 mg oral tablet (20 sources) beta-Adrenergic Karrie Start: 01-13-2024 take 1 tablet by mouth in the morning metoprolol tartrate (Lopressor) 25 MG tablet Indications: Primary hypertension (CMS/HCC) Take 1 tablet (25 mg) by mouth in the morning and 1 tablet (25 mg) in the evening. Take with meals. 180 tablet 3 01/13/2024 Active Start: 12-25-2022 End: 01-11-2024 take 1 tablet by mouth twice daily at mealtime metoprolol tartrate (Lopressor) 25 MG tablet Indications: Primary hypertension (CMS/HCC) TAKE 1 TABLET BY MOUTH TWICE DAILY WITH FOOD 180 tablet 3 12/25/2022 01/11/2024 Discontinued (Reorder) mupirocin 0.02 mg/mg topical ointment (1 source) RNA Synthetase Inhibitor Antibacterial mupirocin (BACTROBAN ) 2 % ointment Apply 1 each topically daily Apply to each nare daily 0 Active nortriptyline 50 mg oral capsule (20 sources) Tricyclic Antidepressant Start: 05-11-19 take 150 mg by mouth once daily Nortriptyline Active 150 MG PO Daily May 11, 2023 11:45am Start: 03-26-2023 take 2 capsules by m outh once daily nortriptyline (PAMELOR) 50 MG capsule Take 2 capsules by mouth nightly 0 03/26/2023 Active Start: 12-17-2020 End: 05-11-2023 take 1 capsule by mouth once daily Nortriptyline 50 mg capsule Active 150 MG PO Daily May 11, 2023 10:45am Start: 12-17-2020 End: 05-11-2023 take 100 mg by mouth once daily Nortriptyline Disconti nued 100 MG PO Daily April 06, 2023 5:24pm May 11, 2023 11:50am take 1 capsule by mo ut every twenty-four hours Nortriptyline HCl 75 MG 1 capsule Orally Once a day Active nystatin 100 unt/mg topical powder (1 source) Polyene Antifungal Start: 06-15-2023 nystatin (MYCOSTATIN) [id number] UNIT/GM powder Indications: Kelsea albicans infection Apply 2 times daily to abdominal and breast folds 60 g 0 06/15/2023 Active omeprazole 20 mg delayed release oral capsule (20 sources) Proton Pump Inhibitor Start: 12-17-2020 End: 04-06-2023 take 1 capsule by mouth once daily at bedtime Omeprazole 20 mg capsule,delayed release(DR/EC) Active 20 MG PO Daily at bedtime April 06, 2023 4:23pm take 1 tablet by mouth once amy y omeprazole 20 MG EC tablet Take 1 tablet by mouth daily 0 Active take 1 tablet by mouth at bedtim e PriLOSEC OTC 20 MG 1 tablet Orally bedtime for 30 day(s) Active take 1 tablet by mouth twice maria eugenia ly PriLOSEC OTC 20 MG 1 tablet Orally Twice a day for 30 day(s) Active 2 ml ondansetron 2 mg/ml injection (1 source) Serotonin-3 Receptor Antagonist Start: 06-30-2023 ondansetron (ZOFRAN) injection 4 mg Ozempic (2 MG/DOSE) 8 MG/3ML (3 sources) Start: 07-08-2021 inject 2 mg by subcutaneous injection every week Ozempic (2 MG/DOSE) 8 MG/3ML 2 mg Subcutaneous weekly for 90 days June, Active predniSONE 20 mg oral tablet (2 sources) Start: 11-20-2023 End: 11-29-2023 take 2 tablets by mouth once daily, then take 1 tablet by mouth once daily at mealtime predniSONE (Deltasone) 20 MG tablet Indications: Acute pain of left knee Take 2 tablets (40 mg) by mouth Daily for 5 days, THEN 1 tablet (20 mg) Daily for 5 days. Take with food. 15 tablet 11/20/2023 11/29/2023 Active pregabalin 75 mg oral capsule (20 sources) Start: 04-06-2023 take 1 capsule by mouth twice daily Pregabalin 75 mg capsule Active 75 MG PO Twice daily April 06, 2023 12:00am Semaglutide (Ozempic) 2 mg/dose (8 mg/3 mL) pen injector (8 sources) Start: 05-11-2023 inject 2 mg by subcutaneous injection every week Semaglutide (Ozempic) 2 mg/dose (8 mg/3 mL) pen injector Active 2 MG SUBCUT every week May 11, 2023 12:01pm PAP approved thru 02/16/2024 Start: 05-11-2023 inject 2 mg by subcu taneous injection every week Semaglutide (Ozempic) 2 mg/dose (8 mg/3 mL) pen injector Active 2 MG SUBCUT every week May 11, 2023 1:01pm PAP approved thru 02/16/2024 Start: 04-06-2023 End: 05-11-2023 inject 2 mg by subcutaneous injection every week Semaglutide (Ozempic) 2 mg/dose (8 mg/3 mL) pen injector Discontinued 2 MG SUBCUT every week April 06, 2023 12:00am May 11, 2023 12:01pm Start: 04-06-2023 End: 05-11-2023 inject 2 mg [...] SUBCUT every week April 06, 2023 12:00am Semaglutide, 2 MG/DOSE, (Ozempic, 2 MG/DOSE,) 8 MG/3ML solution pen-injector (14 sources) inject 2 mg by subcutaneous injection every week Semaglutide, 2 MG/DOSE, (Ozempic, 2 MG/DOSE,) 8 MG/3ML solution pen-injector Inject 2 mg under the skin 1 (one) time per week. Active semaglutide, 2 MG/DOSE, (OZEMPIC, 2 MG/DOSE,) 8 MG/3ML SOPN sc injection (1 source) semaglutide, 2 M G/DOSE, (OZEMPIC, 2 MG/DOSE,) 8 MG/3ML SOPN sc injection Inject 2 mg into the skin once a week 0 Active 5 ml sodium chloride 9 mg/ml injection (5 sources) Start: 06-30-2023 sodium chloride flush 0.9 % injection 5-40 mL Start: 06-30-2023 sodium chlorid e flush 0.9 % injection 5-40 mL Start: 06-30-2023 End: 07-03-2023 0.9 % sodium chloride infusi on tiZANidine 4 mg oral tablet (20 sources) Central alpha-2 Adrenergic Agonist Start: 09-16-2022 End: 06-30-2023 tiZANidine (Zanaflex) 4 MG tablet 09/16/2022 Active topiramate 100 mg oral tablet (1 source) topiramate (TOPA MAX) 100 MG tablet 1 tablet 0 Active Completed/Discontinued Medications Medication Drug Class(es) Dates Sig (Normalized) Sig (Original) acetaminophen 325 mg / HYDROcodone bitartrate 5 mg oral tablet (20 sources) Opioid Agonist Start: 12-17-2020 End: 01-02-2021 take 1 tablet by mouth twice daily as needed for pain Hydrocodone-Acetami nophen 5-325 mg tablet Discontinued 1 TAB PO Twice daily as needed for Pain December 16, 2020 11:00pm January 02, 2021 10:17pm End: 06-30-2023 HYDROcodone-acetaminophen (N ORCO) 5-325 MG per tablet Take 1 tablet by mouth every 6 hours as needed for Pain. Max Daily Amount: 4 tablets 0 06/30/2023 Discontinued (Stop Taking at Discharge) take 1 tablet by mickey th every six hours Russell Active take 1 tablet by mickey th twice daily as needed Russell 5-325 MG 1 tablet as needed Orally bid Active amLODIPine 10 mg oral tablet (20 sources) Dihydropyridine Calcium Channel Karrie Start: 12-17-2020 End: 04-06-2023 take 1 tablet by mouth once daily Amlodipine 10 mg tablet Discontinued 10 MG PO Daily December 16, 2020 11:00pm April 06, 2023 4:31pm baclofen 10 mg oral tablet (20 sources) gamma-Aminobutyric Acid-ergic Agonist Start: 12-17-2020 End: 10-30-2022 take 1 tablet by mouth once daily at bedtime Baclofen 10 mg tablet Discontinued 10 MG PO Daily at bedtime December 16, 2020 11:00pm October 30, 2022 8:54am take 1 tablet by mouth three carrie es daily baclofen (LIORESAL) 10 MG tablet Take 1 tablet by mouth 3 times daily 0 Active take 1 tablet by mickey th every twelve hours Baclofen 10 MG 1 tablet with food or mil k Orally Twice a day for 30 day(s) Not-Taking/PRN 5 ml bupivacaine hydrochloride 5 mg/ml injection (4 sources) Amide Local Anesthetic Start: 12-29-2023 End: 12-29-2023 bupivacaine PF (Marcaine) 0.5 % injection 0.5 mL Start: 12-29-2023 End: 12-29-2023 0.5 mL, Once PRN Procedure, Starting on Thu12/29/23 at 1100, For 1 dose cephalexin 500 mg oral capsule (1 source) Cephalosporin Antibacterial End: 06-30-2023 cephALEXin (KEFLEX) 500 MG capsule empagliflozin 25 mg oral tablet (20 sources) [...] tablet Discontinued 20 MG PO Daily December 16, 2020 11:00pm April 06, 2023 4:13pm fluocinonide 1 mg/ml topical cream (10 sources) Corticosteroid Start: 12-17-2020 End: 12-30-2023 Fluocinonide 0.1 % Cream Discontinued 1 APPLIC TOPICAL 2-4 TIMES PER DAY as needed for irritation December 16, 2020 11:00pm December 30, 2023 9:52am furosemide 20 mg oral tablet (20 sources) Loop Diuretic take 1 tablet by mouth once daily as needed Lasix 20 MG 1 tablet prn Orally Once a day Not-Taking/PRN 3 ml insulin glargine 100 unt/ml pen [...] 55 UNIT SUBCUT Daily at bedtime December 16, 2020 11:00pm April 06, 2023 4:32pm inject 60 [IU] by desai bcutaneous injection [...] Enzyme Inhibitor Start: 12-17-2020 End: 04-06-2023 take 1 tablet by mouth once daily Lisinopril 30 mg tablet Discontinued 30 MG PO Daily December 16, 2020 11:00pm April 06, 2023 4:25pm take 1 tablet by mickey th every twenty-four hours Lisinopril 40 mg 1 tab(s) Orally Once a day Not-Taking/PRN methocarbamol 500 mg oral tablet (1 source) Muscle Relaxant End: 06-30-2023 methocarbamol (ROBAXIN) 500 MG tablet oxyCODONE hydrochloride 10 mg oral tablet (2 sources) Opioid Agonist End: 06-30-2023 take 1 tablet by mouth three times daily oxyCODONE (OXY-IR) 15 MG immediate release tablet Take 1 tablet by mouth 3 times daily. Max Daily Amount: 45 mg 0 06/30/2023 Discontinued (Stop Taking at Discharge) End: 06-30-2023 take 1 tablet by mouth every six hours as needed for pain oxyCODONE HCl (OXY-IR) 10 MG immediate release tablet Take 1 tablet by mouth every 6 hours as needed for Pain. Max Daily Amount: 40 mg 0 06/30/2023 Discontinued (Stop Taking at Discharge) ozempic (2 mg/dose) 8 mg/3ml solution pen-injector [...] Active propranolol hydrochloride 10 mg oral tablet (10 sources) beta-Adrenergic Karrie Start: 12-17-2020 End: 12-17-2020 Propranolol 10 mg tablet Discontinued MG TABLET December 16, 2020 11:00pm December 17, 2020 10:44am Start: 12-17-2020 End: 12-17-2020 Propranolol Discontinued MG TABLET December 17, 2020 12:00am December 17, 2020 11:44am Semaglutide (10 sources) Start: 12-17-2020 End: 04-06-2023 inject 1 [...] (acute kidney injury)] Episodic Administrative/socia l admission (11 sources) Dietary counseling and surveillance; 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: [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 status] Onset: 11-21-2020 Resolved: 10-28-2021 Episodic Anxiety disorders (17 sources) Anxiety disorder, unspecified; 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: [Generalized anxiety disorder] Onset: 09-08-2016 06-12-2023 Chronic Cancer of uterus (4 sources) Malignant neoplasm of endometrium; 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: [Malignant neoplasm of endometrium of corpus uteri ] Onset: 06-03-2023 06-12-2023 Chronic Chronic obstructive pulmonary disease and bronchiectasis (2 sources) Bronchitis; 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: [Bronchitis, not specified as acute or chronic] 01-19-2024 Episodic Diabetes mellitus with complications (20 sources) Hyperglycemia due to type 2 diabetes mellitus; 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: [Type 2 diabetes mellitus with hyperglycemia] Onset: 11-21-2020 Resolved: 10-28-2021 Chronic Comment on above: Download and evaluat ion of Meter. Diabetes mellitus without complication (2 sources) Type 2 diabetes mellitus without complications; 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: [TYPE 2 DIABETES MELLITUS WITHOUT COMPLICATIONS] Onset: 09-08-2016 Chronic Disorders of lipid metabolism (20 sources) Hyperlipidemia; 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: [Hyperlipidemia, unspecified] Onset: 11-21-2020 Resolved: 10-28-2021 Chronic Esophageal disorders (16 sources) Gastro-esophageal reflux disease without esophagitis; 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: [Gastroesophageal reflux disease without esophagitis] Onset: 09-08-2016 06-12-2023 Chronic Essential hypertension (20 sources) Essential (primary) hypertension; 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: [Benign essential hypertension] Onset: 02-23-2008 Resolved: 10-28-2021 Chronic Joint disorders and dislocations; trauma-related (15 sources) Derangement of left knee; 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: [Unspecified internal derangement of left knee] Onset: 11-03-2022 06-12-2023 Chronic Mood disorders (20 sources) Recurrent major depression in partial remission; 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: [Major depressive disorder, recurrent, in partial remission] Onset: 11-13-2016 06-12-2023 Chronic Nutritional deficiencies (20 sources) Vitamin D deficiency; 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: [Vitamin D deficiency, unspecified] Onset: 07-04-2021 Resolved: 10-28-2021 Chronic Osteoarthritis (20 sources) Unilateral primary osteoarthritis, right knee; 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: [Osteoarthritis of left knee joint] Onset: 09-08-2016 01-03-2021 Chronic Osteoporosis (14 sources) Senile osteoporosis; 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: [Age-related osteoporosis without current pathological fracture] Chronic Other aftercare (4 sources) Aftercare following joint replacement surgery; 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: [AFTERCARE FOLLOWING JOINT REPLACEMENT SURGERY] Onset: 09-25-2016 Chronic Other aftercare (20 sources) Long-term current use of insulin; 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] 05-11-2023 Episodic Other aftercare (12 sources) [facility] (current) use of insulin; 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: [Long-term (current) use of insulin] Onset: 11-21-2020 Resolved: 10-28-2021 Episodic Other aftercare (1 source) 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 status; 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: [[facility] (current) use of insulin] 05-11-2023 Episodic Other connective tissue disease (1 source) Presence of right artificial knee joint; 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: [PRESENCE OF RIGHT ARTIFICIAL KNEE JOINT] Onset: 09-20-2016 Chronic Other connective tissue disease (10 sources) History of total knee arthroplasty; 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: [Presence of left artificial knee joint] 01-03-2021 Chronic Other connective tissue disease (15 sources) Artificial knee joint present; 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: [Presence of unspecified artificial knee joint] Onset: 11-03-2022 06-12-2023 Chronic Other connective tissue disease (1 source) Pain in left leg Episodic Other connective tissue disease (3 sources) Arthrodesis status Episodic Other connective tissue disease (9 sources) History of lumbar fusion; 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: [Arthrodesis status] Episodic Other inflammatory condition of skin (15 sources) Erythrodermic psoriasis; 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: [Other psoriasis] Onset: 11-03-2022 06-12-2023 Chronic Other lower respiratory disease (2 sources) Wheezing; 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: [Wheezing] 01-19-2024 Episodic Other nervous system disorders (4 sources) Other specified mononeuropathies of right lower limb; 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: [OTH SPEC MONONEUROPATH RT LOW LIMB] Onset: 06-03-2022 Chronic Other nervous system disorders (2 sources) Other chronic pain; 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: [OTHER CHRONIC PAIN] Onset: 05-23-2022 Chronic Other nervous system disorders (6 sources) Chronic pain; 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: [Other chronic pain] Chronic Other nervous system disorders (15 sources) Carpal tunnel syndrome; 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: [Carpal tunnel syndrome, unspecified upper limb] Onset: 10-03-2011 06-12-2023 Chronic Other nervous system disorders (15 sources) Chronic pain syndrome; 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: [Chronic pain syndrome] Onset: 11-13-2016 06-12-2023 Chronic Other nervous system disorders (15 sources) Difficulty walking; 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: [Difficulty in walking, not elsewhere classified] Onset: 11-03-2022 06-12-2023 Chronic Other nervous system disorders (9 sources) Tremor; 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: [Tremor, unspecified] Episodic Other nervous system disorders (1 source) Tremor, unspecified Episodic Other non-traumatic joint disorders (2 sources) Arthritis of right acromioclavicular joint 12-29-2023 Chronic Other non-traumatic joint disorders (1 source) Pain in right hip; 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: [PAIN IN RIGHT HIP] Onset: 06-26-2022 Episodic Other non-traumatic joint disorders (4 sources) Pain in left knee; 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: [Pain in joint, lower leg] 11-19-2023 Episodic Other non-traumatic joint disorders (2 sources) Pain in right shoulder; 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: [Pain in joint, shoulder region] 12-28-2023 Episodic Other nutritional; endocrine; and metabolic disorders (1 source) Morbid (severe) obesity due to excess calories; 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: [MORBID (SEVERE) OBESITY DUE TO EXCESS CALORIES] Onset: 09-08-2016 Chronic Other nutritional; endocrine; and metabolic disorders (20 sources) Obesity; 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: [Obesity] Onset: 11-03-2022 06-12-2023 Chronic Other nutritional; endocrine; and metabolic disorders (20 sources) Body mass index 40+ - severely obese; 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: [Body mass index (BMI) 50.0-59.9, adult] Onset: 12-22-2022 12-22-2022 Chronic Other nutritional; endocrine; and metabolic disorders [...] disc disorders; other back problems (20 sources) Spondylosis without myelopathy or radiculopathy, lumbar region; 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: [Postlaminectomy syndrome, not elsewhere classified] Onset: 02-23-2008 Chronic Unclassified (12 sources) Body mass index (BMI) 50-59.9 , adult; 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: [BODY MASS INDEX (BMI) 50-59.9 , ADULT] Onset: 09-08-2016 Resolved: 11-21-2020 Chronic Unclassified (1 source) [facility] (current) use of oral hypoglycemic drugs; 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: [RESIDENTIAL (CURRENT) USE OF ORAL HYPOGLYCEMIC DRUGS] Onset: [...] [Encounter for screening for osteoporosis] Onset: 10-07-2022 Unclassified (1 source) New Patient Onset: 06-03-2023 Past or Other Problems Problem Classification Problem Date Documented Date Episodic/Chronic Complications of surgical procedures or medical care (1 source) Infection following a procedure, initial encounter; 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: [INFECTION FOLLOWING A PROCEDURE, INITIAL ENCOUNTER] Onset: 09-20-2016 Episodic Genitourinary symptoms and ill-defined conditions (2 sources) Proteinuria, unspecified; 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: [Dysuria] Onset: 11-21-2020 Resolved: 11-21-2020 Episodic Other connective tissue disease (1 source) Other specified soft tissue disorders; 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: [OTHER SPECIFIED SOFT TISSUE DISORDERS] Onset: 09-20-2016 Episodic Other connective tissue disease (15 sources) Muscle pain; 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: [Myalgia, unspecified site] Onset: 11-03-2022 06-12-2023 Episodic Other connective tissue disease (1 source) Disorder of rotator cuff; 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: [Unspecified disorder of synovium and tendon, unspecified shoulder] Onset: 02-23-2008 06-12-2023 Episodic Other nervous system disorders (15 sources) Paresthesia of hand ; 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: [Paresthesia of skin] Onset: 11-03-2022 06-12-2023 Episodic Other non-traumatic joint disorders (1 source) Pain in right knee; 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: [PAIN IN RIGHT KNEE] Onset: 09-20-2016 Episodic Other non-traumatic joint disorders (17 sources) Hip pain; 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: [Pain in unspecified hip] Onset: 01-08-2016 06-26-2023 Episodic Other non-traumatic joint disorders (14 sources) Shoulder joint pain; 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: [Pain in unspecified shoulder] Onset: 11-03-2022 11-03-2022 Episodic Other screening for suspected conditions (not mental disorders or infectious disease) (4 sources) Cardiovascular stress test abnormal; 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: [Abnormal result of other cardiovascular function study] Onset: 06-15-2023 06-26-2023 Episodic Residual codes; unclassified (1 source) Disorientation, unspecified; 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: [Disorientation, unspecified] Onset: 08-04-2023 Episodic Residual codes; unclassified (1 source) Other specified postprocedural states; 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: [Other specified postprocedural states] Onset: 07-28-2023 Episodic Skin and subcutaneous tissue infections (19 sources) Local infection of the skin and subcutaneous tissue, unspecified; 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: [Cellulitis of right lower limb] Onset: 09-20-2016 06-12-2023 Episodic Spondylosis; intervertebral disc disorders; other back problems (20 sources) Muscle spasm of back; 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: [Radiculopathy, lumbar region] Onset: 01-18-2014 Episodic Unclassified (1 source) LOW BACK PAIN, UNSPECIFIED; 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: [LOW BACK PAIN, UNSPECIFIED] Onset: 08-01-2021 Unclassified (1 source) Low back pain, unspecified M54.50 Results Test Name Value Interpretation Reference Range Facility No Panel Informationon 12-28 SERGIO Iglesias 12/29/2023 11:00 AM M Inj/Asp: R acromioclavicular on 12/29/2023 11:00 AM Indications: pain Details: 22 G needle, anterolateral approach Medications: 0.5 mL bupivacaine PF 0.5 % Outcome: tolerated well, no immediate complications -Discussed risks and benfits of AC Joint injection. Patient requesting injection. Point of maximal tenderness located on palpation over AC JOINT. Skin Cleansed with alcohol swab. Utilizing aseptic technique patient given injected into the AC joint without complication. Patient tolerated this well. Post injection care instructions discussed. Procedure, treatment alternatives, risks and benefits explained, specific risks discussed. Consent was given by the patient. Patient was prepped and draped in the usual sterile fashion. [facility]so n [facility]2023 Imaging Result: AP and Scap Y right shoulder: No acute fracture, no dislocation Moderate AC joint arthrititis, with bone on bone formation and post surgical changes to articular surface Possible calcific tendinitis vs surgical changes Glenohumeral joint preserved with visualized lung manuel clear Impression: No acute bony process right shoulder with ac joint arthritis [facility] [employer] e Radiology Study observation (narrative) [facility] Laboratory - Chemistry and C hemistry - challengeon 12-24-2023 Cobalamin (Vitamin B12) [Mass/Vol] 225 pg/mL [facility] Albumin [Mass/Vol] 3.9 g/dL [facility] ALP [Catalytic activity/Vol] 91 U/L [facility] ALT [Catalytic activity/Vol] 23 U/L [facility] AST [Catalytic activity/Vol] 16 U/L [facility] Bilirubin [Mass/Vol] 0.3 mg/dL [facility] Calcium [Mass/Vol] 9.4 mg/dL [facility] Chloride [Moles/Vol] 98 mmol/L [facility] CO2 [Moles/Vol] 32 mmol/L [facility] Creatinine [Mass/Vol] 0.82 mg/dL [facility] Glucose [Mass/Vol] 166 mg/dL [facility] Potassium [Moles/Vol] 5.0 mmol/L [facility] Protein [Mass/Vol] 6.9 g/dL [facility] Sodium [Moles/Vol] 137 mmol/L [facility] Urea nitrogen [Mass/Vol] 17 mg/dL [facility] Cholesterol [Mass/Vol] 149 mg/dL [facility] Cholesterol in HDL [Mass/Vol] 61 mg/dL [facility] Cholesterol in LDL [Mass/Vol] 69 mg/dL [facility] Cholesterol.total /Cholesterol in HDL [Mass ratio] 2.4 {ratio} [facility] Triglyceride [Mass/Vol] 100 mg/dL [facility] Laboratory - Hematology and Cell countson 12-24-2023 HbA1c (Bld) [Mass fraction] 8.1 % [facility] No Panel Informationon 12-23 25-Hydroxy Vitamin D Total 28 ng/mL [facility] Estimated Average Glucose 186 [facility] Estimated GFR (Non- 80 mL/min [facility] BI MAMMOGRAM SCREENING TOMOS YNTHESIS BILATERALon 09-15-2023 BI MAMMOGRAM SCREENING TOMOSYNTHESIS BILATERAL This is a summary report. The complete report is available in the patient's medical record. If you cannot access the medical record, please contact the sending organization for a detailed fax or copy. EXAMINATION: BI MAMMOGRAM SCREENING TOMOSYNTHESIS BILATERAL CLINICAL HISTORY:screening COMPARISON: February 14, 2019. RESULT: Density: Almost entirely fatty [1] Overall appearance is stable. There is no suspicious mass, asymmetry, architectural distortion, or calcification IMPRESSION: BIRADS 1 - Negative Follow-up: Routine Screening Mamm Board Certified Radiologists. Accredited by the ACR and FDA. MAMMOGRAPHY IS VERY IMPORTANT TO YOUR HEALTH. THE [employer] GUIDELINES RECOMMEND THAT WOMEN 40 YEARS OF AGE AND OLDER SHOULD HAVE A MAMMOGRAM EVERY YEAR. A REMINDER LETTER WILL BE SENT AT THE APPROPRIATE TIME. THIS FACILITY UTILIZES A REMINDER SYSTEM TO ENSURE ALL PATIENTS RECEIVE REMINDER NOTIFICATIONS AT THE APPROPRIATE TIME BASED ON THE RECOMMENDATIONS OF THIS EXAM. THIS INCLUDES REMINDERS FOR ROUTINE SCREENING MAMMOGRAMS, DIAGNOSTIC MAMMOGRAMS IN WHICH THE PATIENT IS ASKED TO RETURN FOR ADDITIONAL VIEWS, OR OTHER BREAST IMAGING INTERVENTIONS WHEN APPROPRIATE. THE PATIENT WILL BE PLACED IN THE APPROPRIATE REMINDER SYSTEM INCLUDING A REMINDER AT THE APPROPRIATE TIME FOR ANY PENDING ADDITIONAL VIEWS. TRANSCRIBED BY: ELECTRONICALLY SIGNED BY: Noman Caldwell MD Normal Not Available Cult,Urineon 08-06-2023 Cult,Urine Specimen Description .CLEAN CATCH URINE Special Requests Site: Urine Culture ESCHERICHIA COLI >100,000 CFU/ML STREPTOCOCCI, BETA HEMOLYTIC GROUP B >100,000 CFU/ML Report Status FINAL 08/06/2023 SUSCEPTIBILITY Organism ESCHERICHIA COLI Method MARLIN Ampicillin >=32 RESISTANT Cefazolin <=4 SUSCEPTIBLE Cefazolin sensitivity results can be used to predict the effectiveness of oral cephalosporins (eg. Cephalexin) in uncomplicated Urinary Tract Infections due to E. coli, K. pneumoniae, and P. mirabilis Ceftriaxone <=0.25 SUSCEPTIBLE ESBL NEGATIVE Gentamicin <=1 SUSCEPTIBLE Levofloxacin <=0.12 SUSCEPTIBLE Nitrofurantoin <=16 SUSCEPTIBLE Piperacillin/Tazobactam <=4 SUSCEPTIBLE Tobramycin <=1 SUSCEPTIBLE Trimethoprim/Sulfa <=20 SUSCEPTIBLE Susceptible [facility] Comment on above: Performed By: #### U RC ####[facility] [id number] [place] [address] Lab Director: Hermilo Thapa[address] [address] Lab Director: Jonel Calvert MD Glucose,Whole Bloodon 2023 Glucose [Mass/Vol] 316 mg/dL High 65-105 [facility] Glucose [Mass/Vol] 225 mg/dL High 65-105 [facility] Glucose [Mass/Vol] 245 mg/dL High 65-105 [facility] Calcium, Ionicon 07-28-2023 Calcium [Moles/Vol] 1.26 mmol/L Normal 1.13-1.33 [facility] Comment on above: Performed By: #### N STUDENT AFFAIRS VICE PRESIDENT #### [facility] [address] [place] [address] Railroad Accountant: Hermilo Thapa MD Glucose (POC)on 07-28-2023 Glucose [Mass/Vol] 227 mg/dL High 74-100 [facility] Glucose,Whole Bloodon 2023 Glucose [Mass/Vol] 247 mg/dL High 65-105 [facility] Glucose [Mass/Vol] 252 mg/dL High 65-105 [facility] Glucose [Mass/Vol] 280 mg/dL High 65-105 [facility] Glucose [Mass/Vol] 214 mg/dL High 65-105 [facility] Lactic Acidon 07-28-2023 Lactic Acid,Whole Bl 1.5 mmol/L Normal 0.7-2.1 [facility] Comment on above: Performed By: #### N STUDENT AFFAIRS VICE PRESIDENT #### [address] [address] [address] Accountant: Hermilo Thapa MD Non-Passenger Service Supervisor Cytologyon 4 Case No: [id number] Normal [facility] Comment on above: Performed By: #### N STUDENT AFFAIRS VICE PRESIDENT #### [address] [address] Railroad Accountant: Hermilo Thapa MD Specimen Description .PELVIC WASHINGS Normal [facility] Comment on above: Performed By: #### N STUDENT AFFAIRS VICE PRESIDENT #### [address] [address] Railroad Accountant: Hermilo Thapa MD Open Heart Panelon 4 Donald Test INFORMATION NOT PROVIDED Normal [facility] Comment on above: Performed By: #### N STUDENT AFFAIRS VICE PRESIDENT #### [address] [address] [address] Accountant: Hermilo Thapa MD Body Temp. 37.0 Normal [facility] Comment on above: Performed By: #### N STUDENT AFFAIRS VICE PRESIDENT #### [address] [address] Railroad Accountant: Hermilo Thapa MD Carboxy Hgb 1.8 % Normal 0-5 [facility] Comment on above: Result Comment: Reference Range: Non-Smokers 0-2% Average Smoker 2-4% Heavy Smoker <10% Performed By: #### N STUDENT AFFAIRS VICE PRESIDENT #### [address] [address] [address] Accountant: Hermilo Thapa MD Chloride [Moles/Vol] 108 mmol/L Normal 98-110 [facility] Comment on above: Performed By: #### N STUDENT AFFAIRS VICE PRESIDENT #### [address] [address] Railroad Accountant: Hermilo Thapa MD FIO2 40% Normal [facility] Comment on above: Performed By: #### N STUDENT AFFAIRS VICE PRESIDENT #### [address] [address] Railroad Accountant: Hermilo Thapa MD Glucose [Mass/Vol] 210 mg/dL High 65-105 [facility] Comment on above: Performed By: #### N STUDENT AFFAIRS VICE PRESIDENT #### [address] [address] Railroad Accountant: Hermilo Thapa MD HCO3 (Bld) [Moles/Vol] 20.2 mmol/L Low 22-27 [facility] Comment on above: Performed By: #### N STUDENT AFFAIRS VICE PRESIDENT #### [address] [address] [address] Accountant: Hermilo Thapa MD Hematocrit (Bld) [Volume fraction] 35.7 % Low 36.3-47.1 [facility] Comment on above: Performed By: #### N STUDENT AFFAIRS VICE PRESIDENT #### [address] [address] [address] Accountant: Hermilo Thapa MD Hemoglobin (Bld) [Mass/Vol] 11.6 g/dL Low 11.9-15.1 [facility] Comment on above: Performed By: #### N STUDENT AFFAIRS VICE PRESIDENT #### [address] [address] [address] Accountant: Hermilo Thapa MD Negative Base Excess 4.4 mmol/L High 0.0-2.0 [facility] Comment on above: Performed By: #### N STUDENT AFFAIRS VICE PRESIDENT #### [address] [address] [address] Accountant: Hermilo Thapa MD Oxygen (Bld) [Partial pressure] 106.0 mm[Hg] High 75-95 [facility] Comment on above: Performed By: #### N STUDENT AFFAIRS VICE PRESIDENT #### [address] [address] [address] Accountant: Hermilo Thapa MD Oxygen saturation in Blood 97.1 % Normal 94-100 [facility] Comment on above: Performed By: #### N STUDENT AFFAIRS VICE PRESIDENT #### [address] [address] [employer] Accountant: Hermilo Thapa MD pCO2 37.7 mmHg Normal 32-45 [facility] Comment on above: Performed By: #### N STUDENT AFFAIRS VICE PRESIDENT #### [address] [address] [employer] Accountant: Hermilo Thapa MD pH (Bld) 7.348 [pH] Low 7.350-7.450 [facility] Comment on above: Performed By: #### N STUDENT AFFAIRS VICE PRESIDENT #### [address] [address] [address] Accountant: Hermilo Thapa MD Potassium [Moles/Vol] 4.5 mmol/L Normal 3.6-5.0 [facility] Comment on above: Performed By: #### N STUDENT AFFAIRS VICE PRESIDENT #### [address] [address] [address] Accountant: Hermilo Thapa MD Sodium [Moles/Vol] 135 mmol/L Low 136-145 [facility] Comment on above: Performed By: #### N STUDENT AFFAIRS VICE PRESIDENT #### [address] [address] [address] Accountant: Hermilo Thapa MD Potassium (POC)on 07-28-2023 Potassium [Moles/Vol] 4.8 mmol/L High 3.5-4.5 [facility] Surgical Pathology Reporton 07-28-2023 Surgical Pathology Report (NOTE) Path Number: [id number] -- Diagnosis -- A. CERVIX, UTERUS, BILATERAL FALLOPIAN TUBES AND OVARIES, HYSTERECTOMY WITH BILATERAL SALPINGO-OOPHORECTOMY: CERVIX: - NEGATIVE FOR ATYPIA AND MALIGNANCY. 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 - FOCAL ADENOMYOSIS. - SMALL INTRAMURAL LEIOMYOMATA. - ADHERENT/ADHESED FAT, ANTERIOR SEROSAL SURFACE. - NEGATIVE SURGICAL MARGINS. BILATERAL FALLOPIAN TUBES AND OVARIES: - NEGATIVE FOR ATYPIA AND MALIGNANCY. B. RIGHT PELVIC TISSUE, EXCISION: - BENIGN ADIPOSE TISSUE (NO LYMPH NODE IDENTIFIED). C. LEFT PELVIC LYMPH NODE, EXCISIONAL BIOPSY: - NEGATIVE FOR MALIGNANCY (0/1). 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 Jonel Calvert M.D. Electronically Signed Out 07/30/2023 Clinical Information Pre-Op Diagnosis: MALIGNANT NEOPLASM OF ENDOMETRIUM Operative Findings: UTERUS, CERVIX, BILATERAL FALLOPIAN TUBES AND BILATERAL OVARIES; RIGHT PELVIC LYMPH NODES; LEFT PELVIC LYMPH NODES Operation Performed: XI ROBOTIC LAPAROSCOPIC HYSTERECTOMY, BSO, ICG DYE INTRACERVICAL INJECTION, SENTINEL LYMPH NODE MAPPING, LYMPH NODE REMOVAL, ANY OTHER INDICATED PROCEDURES (C- MAX BED) dw Source of Specimen A: UTERUS, CERVIX, BILATERAL FALLOPIAN TUBES AND BILATERAL OVARIES B: RIGHT PELVIC LYMPH NODES C: LEFT PELVIC LYMPH NODES Gross Description A. LESLI, UTERUS, CERVIX, BILATERAL FALLOPIAN TUBES AND BILATERAL OVARIES Received in formalin is a 93 gram uterus and cervix (8.5 cm cervix-fundus x 4.5 cm cornu-cornu x 3.5 cm anterior-posterior) with attached bilateral fimbriated fallopian tubes (left: 4.5 cm in length x 0.6 cm in diameter, right: 6.2 cm in length x 0.7 cm in diameter) and attached bilateral intact ovaries (left: 2.5 x 1.5 x 0.9 cm, right: 1.9 x 1.6 x 1.1 cm). The uterine serosa is mcwilliams-pink, hyperemic and superficially disrupted at the fundus. There is adhesed/adherent fat at the anterior fundus measuring 8.0 cm. The anterior paracervical margin is inked blue and the posterior paracervical margin is inked black. There is a 2.6 x 2.5 cm mcwilliams-pink to blue-tinged ectocervix that surrounds a 0.8 cm slit-like to circular os. Additionally, there is presumably mcwilliams-pink, ragged attached parametrial tissue subjacent to the adnexa. The uterus is bivalved to reveal a 3.5 x 2.5 cm endometrial cavity. Within the cavity is an ill-defined 3.3 x 2.5 cm mcwilliams-pink to dickens, ragged mass. The mass does not grossly extend into the lower uterine segment. The endometrial mass is up to 0.6 cm in thickness and is superficially attached. There is no grossly obvious extension into the underlying myometrial tissue. The myometrial tissue averages 1.5 cm in thickness. The myometrium is mcwilliams, rubbery and finely trabeculated with multiple mcwilliams-white to pink intramural nodules up to 0.9 cm. They demonstrate whorled cut surfaces with no hemorrhage or necrosis identified. The mass is focally 0.6 cm to the nearest smooth serosal surface at the posterior fundus. The cervix is lined by a mcwilliams-pink, flat mucosa. Sectioning of the cervix reveals mcwilliams-pink to green-tinged, rubbery cut surfaces. The fallopian tube serosa is pink with few paratubal cysts that range from 0.1 to 0.7 cm. The fallopian tubes demonstrate unremarkable cut surfaces. The ovaries show a mcwilliams, lobulated cortex. Sectioning of the ovaries reveals mcwilliams-white, lobulated cut surfaces with no masses or lesions identified. Sectioning of the adnexal soft tissue reveals mcwilliams-red, spongy and vascularized tissue. Financial Adviser sections are submitted in 18c as follows: 1 anterior cervix 2 posterior cervix 3-4 posterior endomyometrium 5 sales representative adding machines anterior endomyometrium with fat attached at serosa 6 sales representative adding machines anterior fat attached to serosa 7-8 anterior cervix and lower uterine segment, longitudinal section 9-10 posterior cervix and lower uterine segment, longitudinal section 11-14 sales representative adding machines left fallopian tube, ovary and adnexal soft tissue 15-18 sales representative adding machines right fallopian tube, ovary and adnexal soft tissue. B. LESLI CLAY, RIGHT PELVIC LYMPH NODES Received in formalin are two yellow-red, lobulated adipose tissue fragments, 3.6 cm and 5.0 cm. Upon palpation and dissection, no lymph node candidates are identified. Totally embedded 4c. C. LESLI CLAY, LEFT PELVIC LYMPH NODES Received in formalin is a 4.6 cm aggregate of yellow-red, lobulated adipose tissue. Upon palpation and dissection, a 2.1 cm lymph node candidate is identified. The lymph node demonstrates a thin, possible rim of mcwilliams-pink lymphoid tissue and predominantly fatty replaced cut surfaces. The lymph node candidate is totally embedded in 2c (more content not included)... Normal [facility] Surgical Pathology Report (NOTE) Path Number: [id number] INTERPRETATION Pelvic washings: Satisfactory for evaluation. NEGATIVE FOR MALIGNANCY. Hypocellular fluid with few mononuclear inflammatory cells and strips of benign mesothelial cells. Electronically Signed Out John Paul Noble. 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 Gross Description PELVIC WASHING 30 ml. colorless fluid. MICROSCOPIC DESCRIPTION Microscopic examination performed. Non Passenger Service Supervisor Thin Prep x 1, Cell Block w/ HANH x 1 Processing Lab: [address] [id number] Interpretation performed at [place] [id number] NONGYNECOLOGICAL CYTOPATHOLOGY CONSULTATION Patient Name: LESLI CLAY [facility] Rec: [id number] [facility] ANATOMIC PATHOLOGY [address] [place] [id number] Normal [facility] CBC with Diffon 07-16-2023 Abs. Basophil 0.03 k/uL Normal 0.00-0.20 [facility] Comment on above: Performed By: #### C P, LIPR, MG, CDP, TSH, GLYHGB #### [facility] [address] [place] [address] Railroad Accountant: Hermilo Thapa MD Abs.Imm.Granulocy te 0.03 k/uL Normal 0.00-0.30 [facility] Comment on above: Performed By: #### C P, LIPR, MG, CDP, TSH, GLYHGB #### [facility] [address] [place] [address] [employer] Accountant: Hermilo Thapa MD Abs.Neutrophil (Seg) 6.45 k/uL Normal 1.50-8.10 [facility] Comment on above: Performed By: #### C P, LIPR, MG, CDP, TSH, GLYHGB #### [address] [id number] Railroad Accountant: Hermilo Thapa MD Basophils/100 WBC (Bld) 0 % Normal 0-2 [facility] Comment on above: Performed By: #### C P, LIPR, MG, CDP, TSH, GLYHGB #### [place] [address] Railroad Accountant: Hermilo Thapa MD Eosinophils (Bld) [#/Vol] 0.15 10*3/uL Normal 0.00-0.44 [facility] Comment on above: Performed By: #### C P, LIPR, MG, CDP, TSH, GLYHGB #### [facility] [address] [place] [address] Railroad Accountant: Hermilo Thapa MD Eosinophils/100 WBC (Bld) 2 % Normal 1-4 [facility] Comment on above: Performed By: #### C P, LIPR, MG, CDP, TSH, GLYHGB #### [place] [address] Railroad Accountant: Hermilo Thapa MD Erythrocyte distribution width (RBC) [Ratio] 14.7 % High 11.8-14.4 [facility] Comment on above: Performed By: #### C P, LIPR, MG, CDP, TSH, GLYHGB #### [place] [address] Railroad Accountant: Hermilo Thapa MD Hematocrit (Bld) [Volume fraction] 37.3 % Normal 36.3-47.1 [facility] Comment on above: Performed By: #### C P, LIPR, MG, CDP, TSH, GLYHGB #### [address] [address] Railroad Accountant: Hermilo Thapa MD Hemoglobin (Bld) [Mass/Vol] 11.7 g/dL Low 11.9-15.1 [facility] Comment on above: Performed By: #### C P, LIPR, MG, CDP, TSH, GLYHGB #### [address] [address] Railroad Accountant: Hermilo Thapa MD Immature granulocytes/100 WBC (Bld) 0 % Normal 0 [facility] Comment on above: Performed By: #### C P, LIPR, MG, CDP, TSH, GLYHGB #### [place] [address] Railroad Accountant: Hermilo Thapa MD Lymphocytes (Bld) [#/Vol] 2.59 10*3/uL Normal 1.10-3.70 [facility] Comment on above: Performed By: #### C P, LIPR, MG, CDP, TSH, GLYHGB #### [address] [address] [address] Accountant: Hermilo Thapa MD Lymphocytes/100 WBC (Bld) 26 % Normal 24-43 [facility] Comment on above: Performed By: #### C P, LIPR, MG, CDP, TSH, GLYHGB #### [address] [address] [address] Accountant: Hermilo Thapa MD MCH (RBC) [Entitic mass] 27.6 pg Normal 25.2-33.5 [facility] Comment on above: Performed By: #### C P, LIPR, MG, CDP, TSH, GLYHGB #### [address] [address] Railroad Accountant: Hermilo Thapa MD MCHC (RBC) [Mass/Vol] 31.4 g/dL Normal 28.4-34.8 [facility] Comment on above: Performed By: #### C P, LIPR, MG, CDP, TSH, GLYHGB #### [address] [address] Railroad Accountant: Hermilo Thapa MD MCV (RBC) [Entitic vol] 88.0 fL Normal 82.6-102.9 [facility] Comment on above: Performed By: #### C P, LIPR, MG, CDP, TSH, GLYHGB #### [address] [address] Railroad Accountant: Hermilo Thapa MD Monocytes (Bld) [#/Vol] 0.59 10*3/uL Normal 0.10-1.20 [facility] Comment on above: Performed By: #### C P, LIPR, MG, CDP, TSH, GLYHGB #### [address] [address] Railroad Accountant: Hermilo Thapa MD Monocytes/100 WBC (Bld) 6 % Normal 3-12 [facility] Comment on above: Performed By: #### C P, LIPR, MG, CDP, TSH, GLYHGB #### [address] [address] Railroad Accountant: Hermilo Thapa MD Neutrophil (Seg) 66 % High 36-65 [facility] Comment on above: Performed By: #### C P, LIPR, MG, CDP, TSH, GLYHGB #### [address] [address] Railroad Accountant: Hermilo Thapa MD NRBC Automated 0.0 per 100 WBC Normal 0.0 [facility] Comment on above: Performed By: #### C P, LIPR, MG, CDP, TSH, GLYHGB #### [address] [place] [address] Railroad Accountant: Hermilo Thapa MD Platelet mean volume (Bld) [Entitic vol] 10.2 fL Normal 8.1-13.5 [facility] Comment on above: Performed By: #### C P, LIPR, MG, CDP, TSH, GLYHGB #### [address] [address] Railroad Accountant: Hermilo Thapa MD Platelets (Bld) [#/Vol] 325 10*3/uL Normal 138-453 [facility] Comment on above: Performed By: #### C P, LIPR, MG, CDP, TSH, GLYHGB #### [address] [address] Railroad Accountant: Hermilo Thapa MD RBC (Bld) [#/Vol] 4.24 10*6/uL Normal 3.95-5.11 [facility] Comment on above: Performed By: #### C P, LIPR, MG, CDP, TSH, GLYHGB #### [address] [address] Railroad Accountant: Hermilo Thapa MD RBC morphology finding Nom (Bld) ANISOCYTOSIS PRESENT Normal [facility] Comment on above: Performed By: #### C P, LIPR, MG, CDP, TSH, GLYHGB #### [address] [address] Railroad Accountant: Hermilo Thapa MD WBC (Bld) [#/Vol] 9.8 10*3/uL Normal 3.5-11.3 [facility] Comment on above: Performed By: #### C P, LIPR, MG, CDP, TSH, GLYHGB #### [address] [address] Railroad Accountant: Hermilo Thapa MD Comp Metabolic Profon 2023 Albumin [Mass/Vol] 4.4 g/dL Normal 3.5-5.2 [facility] Comment on above: Performed By: #### C P, LIPR, MG, CDP, TSH, GLYHGB #### [address] [address] Railroad Accountant: Hermilo Thapa MD Albumin/Glob Ratio 1.0 Normal 1.0-2.5 [facility] Comment on above: Performed By: #### C P, LIPR, MG, CDP, TSH, GLYHGB #### [address] [address] Railroad Accountant: Hermilo Thapa MD Alkaline Phos 103 U/L Normal 35-104 [facility] Comment on above: Performed By: #### C P, LIPR, MG, CDP, TSH, GLYHGB #### [address] [address] Railroad Accountant: Hermilo Thapa MD ALT [Catalytic activity/Vol] 15 U/L Normal 10-35 [facility] Comment on above: Performed By: #### C P, LIPR, MG, CDP, TSH, GLYHGB #### [address] [address] Railroad Accountant: Hermilo Thapa MD Anion gap [Moles/Vol] 13 mmol/L Normal 9-16 [facility] Comment on above: Performed By: #### C P, LIPR, MG, CDP, TSH, GLYHGB #### [address] [address] Railroad Accountant: Hermilo Thapa MD AST [Catalytic activity/Vol] 18 U/L Normal 10-35 [facility] Comment on above: Performed By: #### C P, LIPR, MG, CDP, TSH, GLYHGB #### [address] [address] Railroad Accountant: Hermilo Thapa MD Bilirubin [Mass/Vol] 0.3 mg/dL Normal 0.00-1.20 [facility] Comment on above: Performed By: #### C P, LIPR, MG, CDP, TSH, GLYHGB #### [address] [address] [address] Accountant: Hermilo Thapa MD Calcium [Mass/Vol] 9.9 mg/dL Normal 8.6-10.4 [facility] Comment on above: Performed By: #### C P, LIPR, MG, CDP, TSH, GLYHGB #### [address] [address] [address] Accountant: Hermilo Thapa MD Chloride [Moles/Vol] 103 mmol/L Normal 98-107 [facility] Comment on above: Performed By: #### C P, LIPR, MG, CDP, TSH, GLYHGB #### [place] [address] Railroad Accountant: Hermilo Thapa MD CO2 [Moles/Vol] 23 mmol/L Normal 20-31 [facility] Comment on above: Performed By: #### C P, LIPR, MG, CDP, TSH, GLYHGB #### [address] [address] Railroad Accountant: Hermilo Thapa MD Creatinine [Mass/Vol] 1.0 mg/dL High 0.50-0.90 [facility] Comment on above: Performed By: #### C P, LIPR, MG, CDP, TSH, GLYHGB #### [place] [address] Railroad Accountant: Hermilo Thapa MD GFR/1.73 sq M.predicted among non-blacks MDRD (S/P/Bld) [Vol rate/Area] 64 mL/min/{1.73_m2} Normal >60 [facility] Comment on above: Result Comment: These results are not intended for use in patients <18 years of age. eGFR results are calculated without a race factor using the 2020 CKD-EPI equation. Careful clinical correlation is recommended, particularly when comparing to results calculated using previous equations. The CKD-EPI equation is less accurate in patients with extremes of muscle mass, extra-renal metabolism of creatine, excessive creatine ingestion, or following therapy that affects renal tubular secretion. Performed By: #### C P, LIPR, MG, CDP, TSH, GLYHGB #### [facility] [address] [place] [address] [employer] Accountant: Hermilo Thapa MD Glucose [Mass/Vol] 161 mg/dL High 74-99 [facility] Comment on above: Performed By: #### C P, LIPR, MG, CDP, TSH, GLYHGB #### [facility] [address] [place] [address] Railroad Accountant: Hermilo Thapa MD Potassium [Moles/Vol] 4.7 mmol/L Normal 3.7-5.3 [facility] Comment on above: Performed By: #### C P, LIPR, MG, CDP, TSH, GLYHGB #### [facility] [address] [place] [address] [employer] Accountant: Hermilo Thapa MD Protein [Mass/Vol] 7.9 g/dL Normal 6.6-8.7 [facility] Comment on above: Performed By: #### C P, LIPR, MG, CDP, TSH, GLYHGB #### [facility] [address] [place] [address] Railroad Accountant: Hermilo Thapa MD Sodium [Moles/Vol] 139 mmol/L Normal 136-145 [facility] Comment on above: Performed By: #### C P, LIPR, MG, CDP, TSH, GLYHGB #### [facility] [address] [place] [address] [employer] Accountant: Hermilo Thapa MD Urea nitrogen [Mass/Vol] 21 mg/dL Normal 8-23 [facility] Comment on above: Performed By: #### C P, LIPR, MG, CDP, TSH, GLYHGB #### [facility] [address] [place] [address] Railroad Accountant: Hermilo Thapa MD Hemoglobin A1Con 07-16-2023 Glucose [Mass/Vol] 206 mg/dL Normal [facility] Comment on above: Result Comment: The ADA and AACC recommend providing the estimated average glucose result to permit better patient understanding of their HBA1c result. Performed By: #### C P, LIPR, MG, CDP, TSH, GLYHGB #### [facility] [address] [place] [address] [address] Accountant: Hermilo Tahpa MD HbA1c (Bld) [Mass fraction] 8.8 % High 4.0-6.0 [facility] Comment on above: Performed By: #### C P, LIPR, MG, CDP, TSH, GLYHGB #### [facility] [address] [place] [address] Railroad Accountant: Hermilo Thapa MD Lipid Profileon 07-16-2023 Cholesterol [Mass/Vol] 117 mg/dL Normal 0-199 [facility] Comment on above: Result Comment: Cholesterol Guidelines: <200 Desirable 200-240 Borderline >240 Undesirable Performed By: #### C P, LIPR, MG, CDP, TSH, GLYHGB #### [facility] [address] [place] [address] Railroad Accountant: Hermilo Thapa MD Cholesterol in HDL [Mass/Vol] 36 mg/dL Low >40 [facility] Comment on above: Result Comment: HDL Guidelines: <40 Undesirable 40-59 Borderline >59 Desirable Performed By: #### C P, LIPR, MG, CDP, TSH, GLYHGB #### [facility] [address] [place] [id number] Railroad Accountant: Hermilo Thapa MD Cholesterol in LDL [Mass/Vol] 60 mg/dL Normal 0-100 [facility] Comment on above: Result Comment: LDL Guidelines: <100 Desirable 100-129 Near to/above Desirable 130-159 Borderline >159 Undesirable Direct (measured) LDL and calculated LDL are not interchangeable tests. Performed By: #### C P, LIPR, MG, CDP, TSH, GLYHGB #### [facility] [place] [address] Railroad Accountant: Hermilo Thapa MD Cholesterol in VLDL [Mass/Vol] 21 mg/dL Normal [facility] Comment on above: Performed By: #### C P, LIPR, MG, CDP, TSH, GLYHGB #### [facility] [address] [place] [address] [address] Accountant: Hermilo Thapa MD Cholesterol.total /Cholesterol in HDL [Mass ratio] 3.0 {ratio} Normal [facility] Comment on above: Performed By: #### C P, LIPR, MG, CDP, TSH, GLYHGB #### [facility] [address] [place] [address] [address] Accountant: Hermilo Thapa MD Triglyceride [Mass/Vol] 107 mg/dL Normal <150 [facility] Comment on above: Result Comment: Triglyceride Guidelines: <150 Desirable 150-199 Borderline 200-499 High >499 Very high Based on AHA Guidelines for fasting triglyceride, November 2011. Performed By: #### C P, LIPR, MG, CDP, TSH, GLYHGB #### [facility] [address] [place] [address] Railroad Accountant: Hermilo Thapa MD Magnesiumon 07-16-2023 Magnesium [Mass/Vol] 1.6 mg/dL Normal 1.6-2.4 [facility] Comment on above: Performed By: #### C P, LIPR, MG, CDP, TSH, GLYHGB #### [facility] [address] [place] [address] Railroad Accountant: Hermilo Thapa MD Thyroid Stim. Horm.on 2023 Thyroid Stim. Horm. 0.74 uIU/mL Normal 0.27-4.20 [facility] Comment on above: Performed By: #### C P, LIPR, MG, CDP, TSH, GLYHGB #### [facility] [address] [place] [address] Railroad Accountant: Hermilo Thapa MD Type + Screenon 07-16-2023 Type + Screen Sample Expiration 07/31/2023,2359 Arm Band Number BE [id number] ABO/Rh(D) O POSITIVE Antibody Screen NEGATIVE Normal [facility] Comment on above: Performed By: #### T YS ####[place] [id number] [place] [address] Lab Director: Hermilo Thapa MD Hemoglobin A1Con 06-30-2023 Glucose [Mass/Vol] 177 mg/dL Normal [facility] Comment on above: Result Comment: The ADA and AACC recommend providing the estimated average glucose result to permit better patient understanding of their HBA1c result. Performed By: #### G LYHGB #### [place] [address] [place] [address] Railroad Accountant: Hermilo Thapa MD #### TSHX #### [facility] [address] [place] [address] [place] [address] Railroad Accountant: Salvador Israel MD HbA1c (Bld) [Mass fraction] 7.8 % High 4.0-6.0 [facility] Comment on above: Performed By: #### G LYHGB #### [facility] [address] [place] [address] Railroad Accountant: Hermilo Thapa MD #### TSHX #### [facility] [address] [place] [address] Railroad Accountant: Salvador Israel MD Lipid Profileon 06-30-2023 Cholesterol [Mass/Vol] 144 mg/dL Normal 0-199 [facility] Comment on above: Result Comment: Cholesterol Guidelines: <200 Desirable 200-240 Borderline >240 Undesirable Performed By: #### L IPR #### [address] [address] Railroad Accountant: Hermilo Thapa MD Cholesterol in HDL [Mass/Vol] 48 mg/dL Normal >40 [facility] Comment on above: Result Comment: HDL Guidelines: <40 Undesirable 40-59 Borderline >59 Desirable Performed By: #### L IPR #### [address] [address] Railroad Accountant: Hermilo Thapa MD Cholesterol in LDL [Mass/Vol] 73 mg/dL Normal 0-100 [facility] Comment on above: Result Comment: LDL Guidelines: <100 Desirable 100-129 Near to/above Desirable 130-159 Borderline >159 Undesirable Direct (measured) LDL and calculated LDL are not interchangeable tests. Performed By: #### L IPR #### [facility] [address] [place] [address] Railroad Accountant: Hermilo Thapa MD Cholesterol in VLDL [Mass/Vol] 23 mg/dL Normal [facility] Comment on above: Performed By: #### L IPR #### [facility] [address] [place] [address] Railroad Accountant: Hermilo Thapa MD Cholesterol.total /Cholesterol in HDL [Mass ratio] 3.0 {ratio} Normal [facility] Comment on above: Performed By: #### L IPR #### [facility] [address] [place] [address] Railroad Accountant: Hermilo Thapa MD Triglyceride [Mass/Vol] 115 mg/dL Normal <150 [facility] Comment on above: Result Comment: Triglyceride Guidelines: <150 Desirable 150-199 Borderline 200-499 High >499 Very high Based on AHA Guidelines for fasting triglyceride, November 2011. Performed By: #### L IPR #### [facility] [address] [place] [address] Railroad Accountant: Hermilo Thapa MD Laboratory - Hematology and Cell countson 06-29-2023 HbA1c (Bld) [Mass fraction] 7.8 % [facility] TSH w/reflex to FT4on 2023 Thyroid Stim. Horm. 3.23 uIU/mL Normal 0.30-5.00 [facility] Comment on above: Performed By: #### G LYHGB #### [facility] [address] [place] [address] Railroad Accountant: Hermilo Thapa MD #### TSHX #### [facility] [address] [place] [address] Railroad Accountant: Salvador Israel MD CT ABDOMEN PELVIS W IV CONTR Hermila 06-20-2023 CT ABDOMEN PELVIS W IV CONTRAST EXAMINATION: CT OF THE ABDOMEN AND PELVIS WITH CONTRAST 06/18/2023 10:05 am TECHNIQUE: CT of the abdomen and pelvis was performed with the administration of intravenous contrast. Multiplanar reformatted images are provided for review. Automated exposure control, iterative reconstruction, and/or weight based adjustment of the mA/kV was utilized to reduce the radiation dose to as low as reasonably achievable. COMPARISON: None HISTORY: ORDERING SYSTEM PROVIDED HISTORY: Endometrial cancer (HCC) TECHNOLOGIST PROVIDED HISTORY: STAT Creatinine as needed:->Yes Reason for Exam: Endometrial cancer FINDINGS: Lower Chest: Lung bases appear unremarkable. Organs: The liver and gallbladder, pancreas and spleen, adrenals, kidneys, aorta and IVC appear normal. GI/Bowel: No evidence of bowel obstruction or perforation. No colitis or enteritis. Pelvis: The uterus, adnexa and urinary bladder appear stable. No pelvic lymphadenopathy. Scattered small inguinal and iliac nodes. No obvious uterine mass. Peritoneum/Retroperitoneu m: No retroperitoneal lymphadenopathy or acute mesenteric findings. No significant ventral hernia. Bones/Soft Tissues: No lytic or destructive changes. Extensive lumbosacral fusion from L1-S1 with adequate alignment. No focal destructive changes. IMPRESSION: 1. No evidence of metastatic disease within the abdomen or pelvis. 2. Extensive lumbosacral fusion with adequate alignment. 3. No acute intra-abdominal or pelvic process. 4. No obvious uterine mass. 5. Scattered small inguinal and iliac nodes. No pelvic lymphadenopathy. Interpreted by: Etta Jay MD Signed by: Etta Jay MD 06/20/23 Final result Normal [facility] HPV DNA High Riskon 06-16-19 HPV Interp Normal [facility] Comment on above: Result Comment: This test amplifies and detects DNA of 14 high-risk HPV types associated with cervical cancer and its precursor lesions (HPV types 16,18, 31, 33, 35, 39, 45, 51, 52, 56, 58, 59, 66, and 68). Sensitivity may be affected by specimen collection methods, stage of infection, and the presence of interfering substances. Results should be interpreted in conjunction with other available laboratory and clinical data. A negative high-risk HPV result does not exclude the possibility of future cytologic HSIL or underlying CIN2-3 or cancer. This test is intended for medical purposes only and is not valid for the evaluation of suspected sexual abuse or for other forensic purposes. Performed By: #### N STUDENT AFFAIRS VICE PRESIDENT #### [address] [address] [address] Accountant: Hermilo Thapa MD HPV Type 16 Not detected [facility] Comment on above: Performed By: #### N STUDENT AFFAIRS VICE PRESIDENT #### [address] [address] [address] Accountant: Hermilo Thapa MD HPV Type 18 Not detected [facility] Comment on above: Performed By: #### N STUDENT AFFAIRS VICE PRESIDENT #### [address] [address] [address] Accountant: Hermilo Thapa MD Other High Risk HPV Not detected [facility] Comment on above: Performed By: #### N STUDENT AFFAIRS VICE PRESIDENT #### [facility] [address] [place] [address] [address] Accountant: Hermilo Thapa MD HPV Sample .THIN PREP [facility] Comment on above: Performed By: #### N STUDENT AFFAIRS VICE PRESIDENT #### [address] [id number] Railroad Accountant: Hermilo Thapa MD Source CERVICAL MATERIAL Normal [facility] Comment on above: Performed By: #### N STUDENT AFFAIRS VICE PRESIDENT #### [address] [address] [address] Accountant: Hermilo Thapa MD Cytology Reporton 06-15-2023 Cytology report Cyto stain.thin prep Doc (Cvx/Vag) (NOTE) Path Number: [id number] DIAGNOSIS Imaged ThinPrep Pap - Cervical (1 monolayer slide): Specimen Adequacy: Satisfactory for evaluation. - Endocervical/transformati on zone component present. Descriptive Diagnosis: Negative for intraepithelial lesion or malignancy. Cytotech Screener: EY Electronically Signed Out Courtney FRAZIER(ASCP) ey/06/24/2023 Procedure/Addendum HPV Procedure Report Date Ordered: 06/16/2023 Status: Signed Out Date Complete: 06/16/2023 By: System Interface Date Reported: 06/16/2023 Sample: HPV Type 16 Result: Not Detected Ref Range: (Not Detected) Sample: HPV Type 18 Result: Not Detected Ref Range: (Not Detected) Sample: Other High Risk HPV Result: Not Detected Ref Range: (Not Detected) Sample: HPV Interp Result: Ref Range: (Not Detected) This test amplifies and detects DNA of 14 high-risk HPV types associated with cervical cancer and its precursor lesions (HPV types 16,18, 31, 33, 35, 39, 45, 51, 52, 56, 58, 59, 66, and 68). Sensitivity may be affected by specimen collection methods, stage of infection, and the presence of interfering substances. Results should be interpreted in conjunction with other available laboratory and clinical data. A negative high-risk HPV result does not exclude the possibility of future cytologic HSIL or underlying CIN2-3 or cancer. This test is intended for medical purposes only and is not valid for the evaluation of suspected sexual abuse or for other forensic purposes. Performed at [facility], [address] [place] [id number] . Source of Specimen: A: Imaged ThinPrep Pap - Cervical (1 monolayer slide) HPV Reflex?.................. ....HPV Regardless Clinical History Postmenopausal Z12.4 Encounter for screening for malignant neoplasm of cervix Processing Lab: [address] [address] Interpretation performed at [address] [address] This Pap Test has been evaluated with the assistance of the ThinPrep Pap Test Imaging System. The Pap smear is a screening test primarily for squamous epithelial lesions, which is subject to both false negative and false positive results. Your patient should be reminded to consult you immediately if she experiences any suspicious signs or symptoms, regardless of her Pap smear result. GYNECOLOGIC CYTOLOGY REPORT Patient Name: LESLI CLAY [facility] Rec: [id number] [facility]Z [facility] ANATOMIC PATHOLOGY [facility] [place], [place] [address] Normal [facility] CBC AND AUTO DIFFon 06-04-19 ABSOLUTE BASOPHIL 0.0 X10E9/L Normal 0.0-0.2 [facility] Comment on above: Performed By: #### C MP, CBCA #### [facility] ([id number]) [address], [address] [place] [address] ABSOLUTE NEUTROPHIL 6.1 X10E9/L Normal 1.5-6.6 [facility] Comment on above: Performed By: #### C MP, CBCA #### [facility] ([id number]) [address], [address] [place] [address] Basophils/100 WBC (Bld) 0.4 % Normal [facility] Comment on above: Performed By: #### C MP, CBCA #### [facility] ([id number]) [address], [address] [place] [address] Eosinophils (Bld) [#/Vol] 0.2 10*3/uL Normal 0.0-0.4 [facility] Comment on above: Performed By: #### C MP, CBCA #### [facility] ([id number]) [address] [place] [address] Eosinophils/100 WBC (Bld) 2.1 % Normal [facility] Comment on above: Performed By: #### C MP, CBCA #### [facility] ([id number]) [address] [place] [address] Erythrocyte distribution width (RBC) [Ratio] 16.0 % High 11.5-15.0 [facility] Comment on above: Performed By: #### C MP, CBCA #### [facility] ([id number]) [address] [place] [address] Hematocrit (Bld) [Volume fraction] 36.4 % Normal 35-47 [facility] Comment on above: Performed By: #### C MP, CBCA #### [facility] ([id number]) [address] [place] [address] Hemoglobin (Bld) [Mass/Vol] 11.8 g/dL Normal 11.7-15.5 [facility] Comment on above: Performed By: #### C NATHAN, CBCA #### [facility] ([id number]) [address] [place] [address] Lymphocytes (Bld) [#/Vol] 2.1 10*3/uL Normal 1.0-3.5 [facility] Comment on above: Performed By: #### C MP, CBCA #### [facility] ([id number]) [address] [place] [address] Lymphocytes/100 WBC (Bld) 23.6 % Normal [facility] Comment on above: Performed By: #### C MP, CBCA #### [facility] ([id number]) [address] [place] [address] MCH (RBC) [Entitic mass] 28.3 pg Normal 27-34 [facility] Comment on above: Performed By: #### C MP, CBCA #### [facility] ([id number]) [address] [place] [address] MCHC (RBC) [Mass/Vol] 32.5 g/dL Normal 32-36 [facility] Comment on above: Performed By: #### C MP, CBCA #### [facility] ([id number]) [address] [place] [address] MCV (RBC) [Entitic vol] 87 fL Normal 80-100 [facility] Comment on above: Performed By: #### C MP, CBCA #### [facility] ([id number]) [address] [place] [address] Monocytes (Bld) [#/Vol] 0.6 10*3/uL Normal 0-0.9 [facility] Comment on above: Performed By: #### C MP, CBCA #### [facility] ([id number]) [address] [place] [address] Monocytes/100 WBC (Bld) 6.5 % Normal [facility] Comment on above: Performed By: #### C MP, CBCA #### [facility] ([id number]) [address] [place] [address] Neutrophils/100 WBC (Bld) 67.4 % Normal [facility] Comment on above: Performed By: #### C MP, CBCA #### [facility] ([id number]) [address] [place] [address] Platelet mean volume (Bld) [Entitic vol] 7.9 fL Normal 7-12 [facility] Comment on above: Performed By: #### C MP, CBCA #### [facility] ([id number]) [address], [address] [place] [address] Platelets (Bld) [#/Vol] 294 10*3/uL Normal 150-450 [facility] Comment on above: Performed By: #### C NATHAN CBCA #### [facility] ([id number]) [address] [place] [address] RBC COUNT 4.19 X10E12/L Normal 3.80-5.20 [facility] Comment on above: Performed By: #### C NATHAN, CBCA #### [facility] ([id number]) [address] [place] [address] WBC (Bld) [#/Vol] 9.1 10*3/uL Normal 4.0-11.0 [facility] Comment on above: Performed By: #### C NATHAN, CBCA #### [facility] ([id number]) [address] [place] [address] COMPREHENSIVE METABOLIC PANE Gonzalo 06-04-2023 Albumin [Mass/Vol] 3.9 g/dL Normal 3.2-5.3 [facility] Comment on above: Performed By: #### C NATHAN CBCA #### [facility] ([id number]) [address] [place] [address] ALP [Catalytic activity/Vol] 107 U/L Normal 39-130 [facility] Comment on above: Performed By: #### C NATHAN CBCA #### [facility] ([id number]) [address] [place] [address] ALT [Catalytic activity/Vol] 26 U/L Normal 0-31 [facility] Comment on above: Performed By: #### C NATHAN CBCA #### [facility] ([id number]) [address] [place] [address] Anion gap [Moles/Vol] 9 mmol/L Normal 5-15 [facility] Comment on above: Performed By: #### C MP, CBCA #### [facility] ([id number]) [address] [place] [address] AST [Catalytic activity/Vol] 18 U/L Normal 0-41 [facility] Comment on above: Performed By: #### C NATHNA CBCA #### [facility] ([id number]) [address] [place] [address] Bilirubin [Mass/Vol] 0.3 mg/dL Normal 0.3-1.2 [facility] Comment on above: Performed By: #### C NATHAN CBCA #### [facility] ([id number]) [address] [place] [address] Calcium [Mass/Vol] 9.3 mg/dL Normal 8.5-10.5 [facility] Comment on above: Performed By: #### C NATHAN CBCA #### [facility] ([id number]) [address] [place] [address] Chloride [Moles/Vol] 97 mmol/L Low 98-109 [facility] Comment on above: Performed By: #### C NATHAN CBCDes #### [facility] ([id number]) [address] [place] [address] CO2 [Moles/Vol] 31 mmol/L Normal 22-32 [facility] Comment on above: Performed By: #### C NATHAN CBCA #### [facility] ([id number]) [address] [place] [address] Creatinine [Mass/Vol] 0.92 mg/dL Normal 0.40-1.00 [facility] Comment on above: Result Comment: METH OD TRACEABLE TO IDMS STANDARD Performed By: #### C NATHAN CBCA #### [facility] ([id number]) [address] [place] [address] GFR/1.73 sq M.predicted among non-blacks MDRD (S/P/Bld) [Vol rate/Area] 70 mL/min/{1.73_m2} Normal >59 [facility] Comment on above: Result Comment: Reported eGFR is based on the CKD-EPI 2020 equation that does not use a race coefficient. Performed By: #### C NATHAN, CBCA #### [facility] ([id number]) [address] [place] [address] Glucose [Mass/Vol] 170 mg/dL High 65-99 [facility] Comment on above: Performed By: #### C NATHAN CBCA #### [facility] ([id number]) [address] [place] [address] Potassium [Moles/Vol] 4.1 mmol/L Normal 3.5-5.0 [facility] Comment on above: Performed By: #### C NATHAN CBCA #### [facility] ([id number]) [address] [place] [address] Protein [Mass/Vol] 7.3 g/dL Normal 6.0-8.0 [facility] Comment on above: Performed By: #### C NATHAN, CBCA #### [facility] ([id number]) [address] [place] [address] Sodium [Moles/Vol] 137 mmol/L Normal 134-146 [facility] Comment on above: Performed By: #### C NATHAN CBCA #### [facility] ([id number]) [address] [place] [address] Urea nitrogen [Mass/Vol] 16 mg/dL Normal 5-27 [facility] Comment on above: Performed By: #### C NATHAN, CBCA #### [facility] ([id number]) [address] [place] [address] XR CHEST 2 VWSon 06-04-2023 XR CHEST 2 VWS XR CHEST 2 VWS Chest 2 views History: Anesthesia clearance, preadmission testing Endometrial cancer ([facility]); Pre-op testing Comparison: 02/19/2022 Findings: Chest 2 views. Stable cardia mediastinal silhouette. No new focal opacity, effusion or pneumothorax. Degenerative changes of the thoracic spine. Impression: No evident acute cardiopulmonary process. Finalized by Sami Bahena MD on 06/04/2023 9:54 AM Normal [facility] SURGICAL PATHOLOGY REFERENCE LAB CONSULTon 05-29-2023 CASE REPORT Normal [facility] Comment on above: Order Comment: Speci men Type: FORMALIN-FIXED PARAFFIN-EMBEDDED TISSUE SPECIMEN Ordering Facility: [facility] Address: [address] [place] [phone] Result Comment: Surg ical Pathology Report Case: [id number] Authorizing Provider: Lukasz Neal MD Collected: 05/29/2023 12:39 PM Ordering Location: [facility] Received: 05/29/2023 12:38 PM [facility] Pathologist: Jeri Dickerson MD Specimen: Slide(s), 2 SLIDES ([id number]) Performed By: #### L [id number] #### [facility] CLIA [id number] [address] [place] [address] CLINICAL HISTORY CONSULT REQUESTED [facility] Comment on above: Order Comment: Speci men Type: FORMALIN-FIXED PARAFFIN-EMBEDDED TISSUE SPECIMEN Ordering Facility: [facility] Address: [address] [place] [address] Performed By: #### L [id number] #### [facility] CLIA [id number] [address] [place] [address] DIAGNOSIS COMMENT Thank you for sendin g [...] give me a call at . Normal [facility] Comment on above: Order Comment: Speci men Type: FORMALIN-FIXED PARAFFIN-EMBEDDED TISSUE SPECIMEN Ordering Facility: [facility] Address: [address] [place], [place] [address] Performed By: #### L [id number] #### [facility] CLIA [id number] [address] [place] [address] FINAL DIAGNOSIS Normal [facility] Comment on above: Order Comment: Speci men Type: FORMALIN-FIXED PARAFFIN-EMBEDDED TISSUE SPECIMEN Ordering Facility: [facility] Address: [address] [place], [place] [address] Result Comment: Revi ew of outside slides, dated 05/26/2023: Endometrium, curettage: -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 Performed By: #### L [id number] #### [facility] CLIA [id number] [address] [place] [address] FINAL PERFORMING LAB Normal [facility] Comment on above: Order Comment: Speci men Type: FORMALIN-FIXED PARAFFIN-EMBEDDED TISSUE SPECIMEN Ordering Facility: [facility] Address: [address] [place], [place] [address] Result Comment: Diag nostic interpretation performed at [facility], [address] [place] [address] CLIA# [id number] Manager Protein: Josh Orellana M.D. Performed By: #### L [id number] #### [facility] CLIA [id number] [address] [place] [address] Gonzalo 05-22-2023 L Specimen: [id number] Received: 05/26/23 Status: AVANI Morillo Num: [id number] Spec Type: Surgical Subm Dr: Shawn Webb Tissues: A Endometrium - Curettings (EMC) Procedures: HE/2, Gross/Micro L4 Age/ Patient Sex Location Account Attending Physician Lesli Clay 63/F LABELL [id number] Shawn Webb SPEC NUM: [id number] RECD: 05/26/23 STATUS: AVANI MORILLO NUM: [id number] LESLIE: 05/22/[address]: Shawn Webb ENTERED: 05/26/[address]: Yoanna,Lab SPEC TYPE: Surgical DEPT: PHOEBE MENDOZA ORDERED: HE/2, Gross/Micro L4 ORDERED: HE/2, Gross/Micro L4 Supplemental Report Addendum 1 Entered: 06/01/23 Supplemental findings of consultation report from [facility]: FINAL DIAGNOSIS: -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, FIGO grade 2; see comment Addendum Signed (signature on file) Bay Neal MD 06/01/23 1027 Pathological Diagnosis Endometrial curettings: -Severe complex atypical hyperplasia and the apparently markedly associated endometrioid adenocarcinoma of the non high-grade type in all fragments, including occasional punctate necrosis also identified in some fragments -Pending secondary consultation review to follow Specimen: [id number] Received: 05/26/23 Status: AVANI Morillo Num: [id number] Spec Type: Surgical Subm Dr: Shawn Webb Tissues: A Endometrium - Curettings (EMC) Procedures: Indigo ANDRADE/Garrett L4 Patient: YvettealliLesli [id number] (Continued) Specimen: [id number] Received: 05/26/23 (Continued) Signed (signature on file) Bay Neal MD 05/27/236 Specimen: [id number] Received: 05/26/23 Status: AVANI Morillo Num: [id number] Spec Type: Surgical Subm Dr: Shawn Webb Tissues: A Endometrium - Curettings (EMC) Procedures: NATHALYIndigo Gordon/Garrett L4 Patient: Lesli Clay [id number] (Continued) Specimen: [id number] Received: 05/26/23 (Continued) Gross Description In formalin labeled endometrial curettings is a 3.0 x 2.5 x 0.5 cm aggregate of mcwilliams soft tissue. Submitted entirely in A1 RG/CYC Clinical history: Pelvic pain, postmenopausal bleeding?path pending CPT Codes 52992 Specimen: [id number] Received: 05/26/23 Status: AVANI Morillo Num: [id number] Spec Type: Surgical Subm Dr: Shawn Webb Tissues: A Endometrium - Curettings (EMC) Procedures: HE/2, Gross/Micro L4 Patient: Lesli Clay [id number] (Continued) Signed (signature on file) Lukasz-Remberto Neal MD 05/27/232135 Normal [facility] No Panel Informationon 05-10 Bedside Glucose 121 [facility] - Chemistry and C hemistry - challengeon 04-22-2023 Albumin [Mass/Vol] 4.0 g/dL [facility] ALP [Catalytic activity/Vol] 104 U/L [facility] ALT [Catalytic activity/Vol] 19 U/L [facility] AST [Catalytic activity/Vol] 17 U/L [facility] Bilirubin [Mass/Vol] 0.2 mg/dL [facility] Calcium [Mass/Vol] 9.8 mg/dL [facility] Chloride [Moles/Vol] 101 mmol/L [facility] CO2 [Moles/Vol] 28 mmol/L [facility] Creatinine [Mass/Vol] 0.75 mg/dL [facility] Glucose [Mass/Vol] 228 mg/dL [facility] Potassium [Moles/Vol] 5.0 mmol/L [facility] Protein [Mass/Vol] 6.8 g/dL [facility] Sodium [Moles/Vol] 137 mmol/L [facility] Urea nitrogen [Mass/Vol] 21 mg/dL [facility] - Hematology and Cell countson 04-22-2023 HbA1c (Bld) [Mass fraction] 8.9 % [facility] No Panel Informationon 04-21 Estimated GFR (Non- 89 mL/min [facility] No Panel Informationon 04-07 Bedside Glucose 182 [facility] A1C HEMOGLOBINon 02-03-2023 HbA1c (Bld) [Mass fraction] 9.7 % [employer] Other Glucose - FINGER STICKon Glucose [Mass/Vol] 178 mg/dL [facility] [employer] Other HbA1c (Bld) [Mass fraction]o n 02-03-2023 A1C HEMOGLOBIN [facility] [employer] Other Glucose - FINGER STICKon Glucose [Mass/Vol] 180 mg/dL [facility] [employer] Other CT lumbar spine w conon 10-17 CT lumbar spine w con [facility] [address] CT Scan Report Signed Patient: Lesli Clay MR#: [id number] : 1960 Acct:[id number] Age/Sex: 62 / F ADM Date: 10/30/22 Loc: XD Room: [facility] Attending Dr: Martine SANZ Copies to: [...] Mindy Tomas M.D.10/30/2022 4:11 PM Dictation Location: [place] [address] Transcribed By: [facility] 10/30/22 1611 Dictated By: Mindy Tomas II, MD 10/30/22 1602 Signed By: 10/30/22 1611 Normal [facility] IR myelogram spine lumbosacr aby 10-30-2022 IR myelogram spine lumbosacral [facility] [address] Interventional Radiology Rpt Signed Patient: Lesli Clay MR#: [id number] : 1960 Acct:[id number] Age/Sex: 62 / F ADM Date: 10/30/22 Loc: XD Room: [facility] Attending Dr: Martine SANZ Copies to: [...] Mindy Tomas M.D.10/30/2022 3:59 PM Dictation Location: [place] [address] Transcribed By: [facility] 10/30/22 1559 Dictated By: Mindy Tomas II, MD 10/30/22 1555 Signed By: 10/30/22 1559 Normal [facility] A1C HEMOGLOBINon 10-03-2022 HbA1c (Bld) [Mass fraction] 8.3 % [facility] [employer] Other Glucose - FINGER STICKon Glucose [Mass/Vol] 211 mg/dL [facility] [employer] Other HbA1c (Bld) [Mass fraction]o n 10-03-2022 A1C HEMOGLOBIN [facility] [employer] Other Creatinine (Bld) [Mass/Vol]O rdered By: Martine Tobias on 09-19-2022 Creatinine [Mass/Vol] 0.7 mg/dL 0.6-1.3 [facility] Comment on above: ER/ESD physician is notified/shown all ISTAT results.Critical values may be confirmed by laboratory testing ifdeemed necessary by ER attending doctor. MR lumbar spine wo conon MR lumbar spine wo con [facility] [address] MRI Report Signed Patient: Lesli Clay MR#: [id number] : 1960 Acct:[id number] Age/Sex: 62 / F ADM Date: 09/19/22 Loc: Room: Type: [facility] Attending Dr: Martine SANZ Copies to: [...] Mindy Tomas M.D.09/19/2022 4:07 PM Dictation Location: [place] [address] Transcribed By: [facility] 09/19/22 7285 Dictated By: Mindy Tomas II, MD 09/19/22 1600 Signed By: 09/19/22 1607 Normal [facility] XR lumbar spine 6V w bending on 08-18-2022 XR lumbar spine 6V w bending [facility] [place] [address] XRay Report Signed Patient: Lesli Clay MR#: [id number] : 1960 Acct:[id number] Age/Sex: 62 / F ADM Date: 08/18/22 Loc: XD Room: Type: [facility] Attending Dr: Martine Tobias NP-C Copies to: [facility] Ordering Provider: [facility] [...] Dodson Jr., D.OGhulam08/18/2022 12:31 PM Dictation Location: [place] [address] Transcribed By: [facility] 08/18/22 1231 Dictated By: Noman Dodson Jr, DO 08/18/22 1230 Signed By: 08/18/22 1231 Normal [facility] A1C HEMOGLOBINon 06-06-2022 HbA1c (Bld) [Mass fraction] 8.0 % [employer] Other Glucose - FINGER STICKon Glucose [Mass/Vol] 156 mg/dL [employer] Other HbA1c (Bld) [Mass fraction]o n 06-06-2022 A1C HEMOGLOBIN [facility] [employer] Other POINT OF CARE GLUCOSEon 05-17 Glucose [Mass/Vol] 185 mg/dL Critically high 74-106 [facility] Comment on above: Performed By: #### P OCGLUC #### [facility] [address] [place] [address] Dr. Keegan Neal A1C HEMOGLOBINon 03-06-2022 HbA1c (Bld) [Mass fraction] 7.8 % [employer] Other CREATININEon 03-06-2022 Creatinine [Mass/Vol] 0.82 mg/dL Normal 0.55-1.02 [facility] Comment on above: Performed By: #### C EJ #### [facility] [address] [place] [address] [address] Keegan Neal EGFR-AF NICARAGUAN >60 Normal >=60 [facility] Comment on above: Performed By: #### C EJ #### [facility] [address] [place] [address] [address] Keegan Neal EGFR-NON AF NICARAGUAN >60 Normal >=60 [facility] Comment on above: Performed By: #### C EJ #### [facility] [address] [place] [address] LSPINE WO W [...] by: BLANE THOMAS Date: 2022-03-06 11:22 Normal [facility] Glucose - FINGER STICKon Glucose [Mass/Vol] 200 mg/dL [employer] Other HbA1c (Bld) [Mass fraction]o n 03-06-2022 A1C HEMOGLOBIN [employer] Other A1C HEMOGLOBINon 10-28-2021 HbA1c (Bld) [Mass fraction] 7.0 % [employer] Other Glucose - FINGER STICKon Glucose [Mass/Vol] 110 mg/dL [employer] Other HbA1c (Bld) [Mass fraction]o n 10-28-2021 A1C HEMOGLOBIN [employer] Other A1C HEMOGLOBINon 07-04-2021 HbA1c (Bld) [Mass fraction] 6.6 % [employer] Other Glucose - FINGER STICKon Glucose [Mass/Vol] 110 mg/dL [employer] Other HbA1c (Bld) [Mass fraction]o n 07-04-2021 A1C HEMOGLOBIN [employer] Other A1C HEMOGLOBINon 11-21-2020 HbA1c (Bld) [Mass fraction] 6.0 % [employer] Other Glucose - FINGER STICKon Glucose [Mass/Vol] 98 mg/dL [employer] Other HbA1c (Bld) [Mass fraction]o n 11-21-2020 A1C HEMOGLOBIN [employer] Other Discharge Summaryon 09-26-19 Discharge Summary MR#: [id number] [facility] Admitted: [...] 09/24/2016/02:52 P/Que Cano M.D.Date Trans: 09/25/2016 08:08 A/Nigel_JN:[id number] cc: Rosales Taylor M.D. [address] [facility] [address] Normal [facility] KNEE RIGHT 3 [facility] 7 KNEE RIGHT 3 [facility]edtf[address] [place] [address] P atient Name: LESLI CLAY : 1960ex: FAge: Race: FilomenaMRN: [id number]. Location: 84Patient Status: Date: 09/25/2016 8:15:00 AMCompleted Date: 09/25/2016 08:22 AMRequesting Provider: QUE BLKAE Attending Provider: Report Copy To: Signs & Symptoms: Z96.651 Presence of right artificial knee joint [id number]: AthenaComments: , , , Ordering Provider - QUE BLAKE MD , Exam: KNEE RIGHT 3 VWSAccession #: [id number] ======KNEE RIGHT 3 VWS 09/25/2016 8:22 AM [...] changes. Electronically signed by:Mindy Tomas. Transcribed by: [email or web address], User Resident: Electronically Signed by: MINDY TOMAS @ 09/25/2016 04:44 PM Normal [facility] Comment on above: Order Comment: , , = ========= , Ordering Provider - QUE BLAKE MD , Consultationon 09-21-2016 Consultation MR#: [id number]: [facility] Date [...] September 23, 2016, with Dr. Blake. In [facility], she was placed in a hinged knee brace to prevent flexion of theknee. She was given renewal of Keflex. We prescribed Russell for pain controland we applied an Armando wrap for edema control.Reviewed By:Desmond Mena MD 09/22/2016 08:26 AElectronically Signed by:Martin Fonseca MD 09/25/2016 03:22 P ___Martin Fonseca MD I was not present but assume all responsibility for the exam. NOTBILLABLEDate Dict: 09/21/2016/10:51 A/Desmond Mena, MDDate Trans: 09/21/2016 11:52 A/mmoDN_JN:[id number] cc: Rosales Taylor M.D. [address] [facility] [address] Normal [facility] BASIC METABOLIC PANELon Calcium 9.6 mg/dL Normal 8.6-10.3 [facility] Comment on above: Performed By: #### 0 0071 ####[facility] Chloride 99 mmol/L Normal 98-107 [facility] Comment on above: Performed By: #### 0 0071 ####[place] [id number] CO2 29 mmol/L Normal 21-31 [facility] Comment on above: Performed By: #### 0 0071 ####[facility] Creatinine 0.91 mg/dL Normal 0.60-1.20 [facility] Comment on above: Performed By: #### 0 0071 ####[place] [address] eGFR (black) mL/min/{1.73_m2} Normal >60 [facility] Comment on above: Performed By: #### 0 0071 ####[facility] [place] [address], [place] eGFR (non-black) mL/min/{1.73_m2} Normal >60 [facility] Comment on above: Performed By: #### 0 0071 ####[facility] [place] [address], [facility] Glucose mass conc 151 mg/dL High 70-[address] [facility] Comment on above: Performed By: #### 0 0071 ####[facility] [place] [address], [facility] Potassium molar conc 4.0 mmol/L Normal 3.5-5.1 [facility] Comment on above: Performed By: #### 0 0071 ####[place] [address] [facility].[address] Sodium 137 mmol/L Normal 136-145 [facility] Comment on above: Performed By: #### 0 0071 ####[facility] [facility].[address] Urea nitrogen 13 mg/dL Normal 7-25 The [facility] Comment on above: Performed By: #### 0 0071 ####[facility] [facility].[address] C REACTIVE PROTEINon 017 C reactive protein (CRP) 28.5 mg/L High 0.0-7.0 [facility] Comment on above: Performed By: #### 0 0071 ####[facility] [place] [address], [facility] CBC W/DIFFon 09-20-2016 Basophils Auto #/vol (Bld) 0.5 % Normal 0.0-2.0 [facility] Comment on above: Performed By: #### 0 0071 ####[address] [place] [address], [facility] Eosinophils/100 leukocytes 2.1 % Normal 0.0-5.0 [facility] Comment on above: Performed By: #### 0 0071 ####[facility] Erythrocyte distribution width Auto Ratio (RBC) 17.1 % High 11.5-16.9 [facility] Comment on above: Performed By: #### 0 0071 ####[facility] Erythrocytes (RBC) 3.39 mill/mm3 Low 3.50-5.50 [facility] Comment on above: Performed By: #### 0 0071 ####[place] [id number] Hematocrit (HCT) 31.4 % Low 36.0-48.0 [facility] Comment on above: Performed By: #### 0 0071 ####[place] [address] Hemoglobin mass conc (Bld) 10.3 g/dL Low 12.0-15.0 [facility] Comment on above: Performed By: #### 0 0071 ####[place] [address] Lymphocytes/100 leukocytes 19.8 % Low 20.0-40.0 [facility] Comment on above: Performed By: #### 0 0071 ####[facility] MCH 30.3 pg Normal 24.0-32.0 [facility] Comment on above: Performed By: #### 0 0071 ####[facility] [facility].[address] MCHC mass conc (RBC) 32.7 g/dL Normal 32.0-36.0 [facility] Comment on above: Performed By: #### 0 0071 ####[facility] [place] [address], [facility] MCV 92.6 fL Normal 80.0-100.0 [facility] Comment on above: Performed By: #### 0 0071 ####[facility] [place] [address], [facility] METHOD Normal [facility] Comment on above: Result Comment: Auto mated differential performedNormal RBC Morphology Performed By: #### 0 0071 ####[facility] [place] [address], [facility] MONOS 5.8 % Normal 2-8 [facility] Comment on above: Performed By: #### 0 0071 ####[facility] [place] [address], [facility] Neutrophils/100 leukocytes 71.8 % High 50-70 [facility] Comment on above: Performed By: #### 0 0071 ####[facility] [place] [address], [facility] PLAT CNT 400 Thou/mm3 Normal 100-400 The [facility] Comment on above: Performed By: #### 0 0071 ####[facility] [place] [address], [facility] WBC (Leukocytes) 10.6 Thou/mm3 High 4.0-10.0 [facility] Comment on above: Performed By: #### 0 0071 ####[facility] [place] [address], [facility] SEDIMENTATION RATEon 017 SED RATE 107 mm/hr High 0-20 [facility] Comment on above: Performed By: #### 0 0071 ####[facility], [place] [address] [place] [address] POC GLUCOSE LABon 07-31-2017 Glucose mass conc 187 mg/dL High 70-[address] [facility] Comment on above: Performed By: #### 0 0071 ####[facility] [place] [address], [place] Glucose mass conc 153 mg/dL High 70-[address] [facility] Comment on above: Performed By: #### 5 610, 14960 ####[facility] [place] [address], [place] POC GLUCOSE LABon 09-14-2016 Glucose mass conc 198 mg/dL High 70-[address] [facility] Comment on above: Performed By: #### 5 6100, 77450 ####[facility] [place] [address], [place] Glucose mass conc 188 mg/dL High 70-[address] [facility] Comment on above: Performed By: #### 5 6100, 09462 ####[facility] [place] [address], [place] Glucose mass conc 192 mg/dL High 70-[address] [facility] Comment on above: Performed By: #### 5 6100, 78186 ####[facility] [place] [address], [place] Glucose mass conc 155 mg/dL High 70-[address] [facility] Comment on above: Performed By: #### 5 610, 46755 ####[facility] [place] [address], [place] POC GLUCOSE LABon 09-13-2016 Glucose mass conc 223 mg/dL High 70-[address] [facility] Comment on above: Performed By: #### 5 610, 46753 ####[facility] [place] [address], [place] Glucose mass conc 212 mg/dL High 70-[address] [facility] Comment on above: Performed By: #### 5 6100, 06840 ####[facility] [place] [address], [place] Glucose mass conc 111 mg/dL High 70-[address] [facility] Comment on above: Performed By: #### 5 6100, 95076 ####[facility] [place] [address], [place] Glucose mass conc 199 mg/dL High 70-[address] [facility] Comment on above: Performed By: #### 5 6100, 63539 ####[facility] [place] [address], [place] Glucose mass conc 149 mg/dL High 70-[address] [facility] Comment on above: Performed By: #### 5 6100, 89345 ####[facility] [place] [address], [place] POC GLUCOSE LABon 09-12-2016 Glucose mass conc 205 mg/dL High 70-[address] [facility] Comment on above: Performed By: #### 5 6100, 31124 ####[facility] [place] [address], [place] Glucose mass conc 132 mg/dL High 70-[address] [facility] Comment on above: Performed By: #### 5 6100, 64530 ####[facility] [place] [address], [place] Glucose mass conc 184 mg/dL High 70-[address] [facility] Comment on above: Performed By: #### 5 6100, 48782 ####[facility] [place] [address], [place] Glucose mass conc 158 mg/dL High 70-[address] [facility] Comment on above: Performed By: #### 5 610, 64444 ####[facility] [place] [address], [place] POC GLUCOSE LABon 09-11-2016 Glucose mass conc 194 mg/dL High 70-[address] [facility] Comment on above: Performed By: #### 5 610, 83767 ####[facility] [place] [address], [place] Glucose mass conc 192 mg/dL High 70-[address] [facility] Comment on above: Performed By: #### 5 610, 24996 ####[facility] [place] [address], [place] Glucose mass conc 221 mg/dL High 70-[address] [facility] Comment on above: Performed By: #### 5 610, 11544 ####[facility] [place] [address], [place] Glucose mass conc 147 mg/dL High 70-[address] [facility] Comment on above: Performed By: #### 5 610, 24988 ####[facility] [place] [address], [place] POC GLUCOSE LABon 09-10-2016 Glucose mass conc 224 mg/dL High 70-[address] [facility] Comment on above: Performed By: #### 5 610, 26248 ####[facility] [place] [address], [place] Glucose mass conc 156 mg/dL High 70-[address] [facility] Comment on above: Performed By: #### 1 0008 ####[facility] [place] [address], [place] Glucose mass conc 240 mg/dL High 70-[address] [facility] Comment on above: Performed By: #### 1 0008 ####[facility] [place] [address], [place] Glucose mass conc 171 mg/dL High 70-[address] [facility] Comment on above: Performed By: #### 1 0008 ####[facility] [place] [address], [facility] BASIC METABOLIC PANELon 07-2 Calcium 8.4 mg/dL Low 8.6-10.3 [facility] Comment on above: Order Comment: No: D o not add to previous draw Performed By: #### 1 0008 ####[facility] [place] [address], [facility] Chloride 99 mmol/L Normal 98-107 [facility] Comment on above: Order Comment: No: D o not add to previous draw Performed By: #### 1 0008 ####[facility] [place] [address], [facility] CO2 27 mmol/L Normal 21-31 [facility] Comment on above: Order Comment: No: D o not add to previous draw Performed By: #### 1 0008 ####[facility] [place] [address], [facility] Creatinine 1.11 mg/dL Normal 0.60-1.20 [facility] Comment on above: Order Comment: No: D o not add to previous draw Performed By: #### 1 0008 ####[facility] [place] [address], [facility] eGFR (black) mL/min/{1.73_m2} Normal >60 [facility] Comment on above: Order Comment: No: D o not add to previous draw Performed By: #### 1 0008 ####[facility] [place] [address], [facility] eGFR (non-black) 51 ml/min/1.73sq m Abnormal >60 [facility] Comment on above: Order Comment: No: D o not add to previous draw Performed By: #### 1 0008 ####[facility] [facility].[address] Glucose mass conc 161 mg/dL High 70-[address] [facility] Comment on above: Order Comment: No: D o not add to previous draw Performed By: #### 1 0008 ####[place] [address] [facility].[address] Potassium molar conc 4.2 mmol/L Normal 3.5-5.1 [facility] Comment on above: Order Comment: No: D o not add to previous draw Performed By: #### 1 0008 ####[address] Sodium 134 mmol/L Low 136-145 [facility] Comment on above: Order Comment: No: D o not add to previous draw Performed By: #### 1 0008 ####[address] Urea nitrogen 24 mg/dL Normal 7-25 The [facility] Comment on above: Order Comment: No: D o not add to previous draw Performed By: #### 1 0008 ####[address] CBC W/DIFFon 09-09-2016 Basophils Auto #/vol (Bld) 0.2 % Normal 0.0-2.0 [facility] Comment on above: Order Comment: No: D o not add to previous draw Performed By: #### 1 0008 ####[place] [address] [place] [address], [facility] Eosinophils/100 leukocytes 1.0 % Normal 0.0-5.0 [facility] Comment on above: Order Comment: No: D o not add to previous draw Performed By: #### 1 0008 ####[address] Erythrocyte distribution width Auto Ratio (RBC) 16.9 % Normal 11.5-16.9 [facility] Comment on above: Order Comment: No: D o not add to previous draw Performed By: #### 1 0008 ####[facility] Erythrocytes (RBC) 3.31 mill/mm3 Low 3.50-5.50 [facility] Comment on above: Order Comment: No: D o not add to previous draw Performed By: #### 1 0008 ####[facility] Hematocrit (HCT) 30.7 % Low 36.0-48.0 The [facility] Comment on above: Order Comment: No: D o not add to previous draw Performed By: #### 1 0008 ####[facility] Hemoglobin mass conc (Bld) 10.0 g/dL Low 12.0-15.0 [facility] Comment on above: Order Comment: No: D o not add to previous draw Performed By: #### 1 0008 ####[facility] Lymphocytes/100 leukocytes 25.6 % Normal 20.0-40.0 [facility] Comment on above: Order Comment: No: D o not add to previous draw Performed By: #### 1 0008 ####[facility] MCH 30.3 pg Normal 24.0-32.0 [facility] Comment on above: Order Comment: No: D o not add to previous draw Performed By: #### 1 0008 ####[facility] MCHC mass conc (RBC) 32.7 g/dL Normal 32.0-36.0 [facility] Comment on above: Order Comment: No: D o not add to previous draw Performed By: #### 1 0008 ####[facility] [place] [address], [facility] MCV 92.7 fL Normal 80.0-100.0 [facility] Comment on above: Order Comment: No: D o not add to previous draw Performed By: #### 1 0008 ####[facility] [place] [address], [facility] METHOD Normal [facility] Comment on above: Order Comment: No: D o not add to previous draw Result Comment: Auto mated differential performedNormal RBC Morphology Performed By: #### 1 0008 ####[facility] [place] [address], [facility] MONOS 6.9 % Normal 2-8 [facility] Comment on above: Order Comment: No: D o not add to previous draw Performed By: #### 1 0008 ####[facility] [place] [address], [facility] Neutrophils/100 leukocytes 66.3 % Normal 50-70 [facility] Comment on above: Order Comment: No: D o not add to previous draw Performed By: #### 1 0008 ####[facility] [place] [address], [facility] PLAT CNT 304 Thou/mm3 Normal 100-400 The [facility] Comment on above: Order Comment: No: D o not add to previous draw Performed By: #### 1 0008 ####[facility] [place] [address], [facility] WBC (Leukocytes) 8.7 Thou/mm3 Normal 4.0-10.0 [facility] Comment on above: Order Comment: No: D o not add to previous draw Performed By: #### 1 0008 ####[facility] [place] [address], [facility] Operative Reporton 7 Operative Report MR#: [id number] [facility] Lesli Clay Room #: [id number] Discharge Date: Birthdate: 1960 OPERATIVE REPORTDATE OF [...] 09/08/2016/08:19 P/Que Cano M.D.Date Trans: 09/09/2016 04:17 A/Nigel_JN:[id number] cc: Rosales Taylor M.D. [address] [facility] [address] Normal [facility] POC GLUCOSE LABon 09-09-2016 Glucose mass conc 229 mg/dL High 70-[address] [facility] Comment on above: Performed By: #### 1 0008 ####[facility] [place] [address], [facility] Glucose mass conc 159 mg/dL High 70-[address] [facility] Comment on above: Performed By: #### 1 0008 ####[facility] [place] [address], [facility] Glucose mass conc 182 mg/dL High 70-[address] [facility] Comment on above: Performed By: #### 1 0008 ####[facility] [place] [address], [facility] Glucose mass conc 159 mg/dL High 70-[address] [facility] Comment on above: Performed By: #### 1 0008 ####[address] [place] [address], [facility] Glucose mass conc 172 mg/dL High 70-[address] [facility] Comment on above: Performed By: #### 1 0008 ####[place] [address] [place] [address], [facility] POC GLUCOSE LABon 09-08-2016 Glucose mass conc 175 mg/dL High 70-[address] [facility] Comment on above: Performed By: #### 8 5499 ####[address] [place] [address], [facility] Glucose mass conc 165 mg/dL High 70-[address] [facility] Comment on above: Performed By: #### 8 5499 ####[place] [address] [place] [address], [facility] Glucose mass conc 173 mg/dL High 70-[address] [facility] Comment on above: Performed By: #### 8 5499 ####[address] [place] [address], [facility] PORTABLE KNEE RIGHT 2 VWSon 09-08-2016 PORTABLE KNEE RIGHT 2 VWS [facility] [place] [id number] P atient Name: LESLI CLAY : 1960ex: FAge: Race: WhiteMRN: [id number]. Location: OUTPPatient Status: OVisit #: [id number] Date: 09/08/2016 2:05:00 PMCompleted Date: 09/08/2016 02:45 PMRequesting Provider: QUE CANO Attending Provider: QUE BLAKE Report Copy To: Signs & Symptoms: Pain ( specify Location)History: Patient history not availableComments: Hardware Evaluation, please do in PACUExam: PORTABLE KNEE RIGHT 2 VWSAccession #: [id number] ======PORTABLE KNEE RIGHT 2 VWS 09/08/2016 2:45 [...] arthroplasty Electronically signed by:Joan Cormier. Transcribed by: [id number], User Resident: Electronically Signed by: JOAN CORMIER @ 09/08/2016 02:48 PM Normal [facility] Comment on above: Order Comment: Hardw are Evaluation, please do in PACU APTTon 08-25-2016 aPTT 33.0 s Normal 25.0-35.0 [facility] Comment on above: Result Comment: ALL [...] THIS PURPOSE. Performed By: #### 5 6101, 55250 ####[facility] BASIC METABOLIC PANELon 07- Calcium 9.9 mg/dL Normal 8.6-10.3 [facility] Comment on above: Performed By: #### 0 0071 ####[place] [address] Chloride 96 mmol/L Low 98-107 [facility] Comment on above: Performed By: #### 0 0071 ####[place] [address] CO2 29 mmol/L Normal 21-31 [facility] Comment on above: Performed By: #### 0 0071 ####[place] [address] Creatinine 0.94 mg/dL Normal 0.60-1.20 [facility] Comment on above: Performed By: #### 0 0071 ####[facility] [facility].[address] eGFR (black) mL/min/{1.73_m2} Normal >60 [facility] Comment on above: Performed By: #### 0 0071 ####[facility] eGFR (non-black) mL/min/{1.73_m2} Normal >60 e [facility] Comment on above: Performed By: #### 0 0071 ####[facility] Glucose mass conc 128 mg/dL High 70-100 [facility] Comment on above: Performed By: #### 0 0071 ####[facility] Potassium molar conc 4.0 mmol/L Normal 3.5-5.1 [facility] Comment on above: Performed By: #### 0 1 ####[facility] Sodium 135 mmol/L Low 136-145 [facility] Comment on above: Performed By: #### 0 1 ####[facility] Urea nitrogen 15 mg/dL Normal 7-25 The [facility] Comment on above: Performed By: #### 0 1 ####[facility] CBC W/DIFFon 08-25-2016 Basophils Auto #/vol (Bld) 0.2 % Normal 0.0-2.0 [facility] Comment on above: Performed By: #### 102 ####[facility] Eosinophils/100 leukocytes 1.6 % Normal 0.0-5.0 [facility] Comment on above: Performed By: #### 5 102 ####[facility] Erythrocyte distribution width Auto Ratio (RBC) 16.9 % Normal 11.5-16.9 [facility] Comment on above: Performed By: #### 102 ####[facility] Erythrocytes (RBC) 4.18 mill/mm3 Normal 3.50-5.50 [facility] Comment on above: Performed By: #### 5 0103 ####[facility] Hematocrit (HCT) 38.2 % Normal 36.0-48.0 [facility] Comment on above: Performed By: #### 5 3 ####[facility] Hemoglobin mass conc (Bld) 12.5 g/dL Normal 12.0-15.0 [facility] Comment on above: Performed By: #### 5 3 ####[facility] Lymphocytes/100 leukocytes 21.4 % Normal 20.0-40.0 [facility] Comment on above: Performed By: #### 5 3 ####[facility] MCH 29.9 pg Normal 24.0-32.0 [facility] Comment on above: Performed By: #### 5 0103 ####[facility] MCHC mass conc (RBC) 32.7 g/dL Normal 32.0-36.0 [facility] Comment on above: Performed By: #### 5 3 ####[facility] MCV 91.4 fL Normal 80.0-100.0 [facility] Comment on above: Performed By: #### 5 0103 ####[facility] METHOD Normal The [facility] Comment on above: Result Comment: Auto mated differential performedNormal RBC Morphology Performed By: #### 5 3 ####[facility] MONOS 5.2 % Normal 2-8 [facility] Comment on above: Performed By: #### 5 0103 ####[facility] [facility].[address] Neutrophils/100 leukocytes 71.6 % High 50-70 [facility] Comment on above: Performed By: #### 5 0103 ####[facility] [facility].[address] PLAT CNT 351 Thou/mm3 Normal 100-400 The [facility] Comment on above: Performed By: #### 5 0103 ####[facility] [facility].[address] WBC (Leukocytes) 12.0 Thou/mm3 High 4.0-10.0 [facility] Comment on above: Performed By: #### 5 0103 ####[facility] PROTHROMBIN TIMEon 7 INR Coag RelTime (PPP) 0.97 {INR} Normal 0.91-1.16 [facility] Comment on above: Result Comment: ACCC P RECOMMENDED INR FOR WARFARIN THERAPY CONDITION INRPROPHYLAXIS OF VENOUS THROMBOSIS 2-3(HIGH-RISK SURGERY)TREATMENT OF VENOUS THROMBOSIS 2-3TREATMENT OF PULMONARY EMBOLISM 2-3PREVENTION OF SYSTEMIC EMBOLISM: 2-3 ACUTE MYOCARDIAL INFARCTION TISSUE HEART VALVES VALVULAR HEART DISEASE ATRIAL FIBRILLATION RECURRENT SYSTEMIC EMBOLISMMECHANICAL HEART VALVE 2.5-3.5 FROM: ORAL ANTICOAGULANTS. MECHANISM OF ACTION, CLINICALEFFECTIVENESS, AND OPTIMAL THERAPEUTIC RANGE. [id number]. Performed By: #### 5 6101, [id number] ####[facility] [facility].[address] Prothrombin time (PT) Coag time (PPP) 12.9 s Normal 12.3-14.8 [facility] Comment on above: Result Comment: ALL RESULTS MUST BE INTERPRETED WITH RESPECT TO BLOOD DRAWING ARTIFACTOR DILUTION ERROR OF ANTICOAGULANT AT THE TIME OF SAMPLING. Performed By: #### 5 6101, [id number] ####[facility] [facility].[address] TYPE AND SCREENon 08-25-2016 ABO INTERPRETATION O Normal The [facility] Comment on above: Performed By: #### 6 2586 ####[facility] [facility].[address] ANTIBODY SCREEN Negative Normal The [facility] Comment on above: Performed By: #### 6 2586 ####[facility] [facility].[address] RH INTERPRETATION Positive Normal The [facility] Comment on above: Performed By: #### 6 2586 ####[facility] [facility].[address] URINALYSISon 08-25-2016 Bilirubin (total) Negative Normal NEGATIVE The [facility] Comment on above: Performed By: #### 1 0008 ####[facility] [place] [address], [facility] BLOOD MODERATE Abnormal NEGATIVE [facility] Comment on above: Performed By: #### 1 0008 ####[facility] [place] [address], [facility] EPIS MOD Abnormal FEW [facility] Comment on above: Performed By: #### 1 0008 ####[facility] [place] [address], [facility] Erythrocytes (RBC) 3-5 Abnormal 0-0 [facility] Comment on above: Performed By: #### 1 0008 ####[facility] [place] [address], [facility] Glucose mass conc Negative Normal NEGATIVE The [facility] Comment on above: Performed By: #### 1 0008 ####[facility] [facility] [place] [place] [address], [facility] KETONE Negative Normal NEGATIVE [facility] Comment on above: Performed By: #### 1 0008 ####[facility] [facility] [place] [address], [facility] LEUK ZEYNEP TRACE Abnormal NEGATIVE [facility] Comment on above: Performed By: #### 1 0008 ####[facility] [facility] [place] [address], [facility] pH of blood 7.0 [pH] Normal 5.0-8.0 The [facility] Comment on above: Performed By: #### 1 0008 ####[facility] [place] [address], [facility] Protein Negative Normal NEGATIVE The [facility] Comment on above: Performed By: #### 1 0008 ####[facility] [place] [address], [place] SPEC GRAV 1.006 Low 1.015-1.020 The [facility] Comment on above: Performed By: #### 1 0008 ####[facility] [place] [address], [facility] Urine, appearance CLEAR Normal CLEAR The [facility] Comment on above: Performed By: #### 1 0008 ####[facility] [facility].[address] Urine, bacteria in sediment MANY Abnormal NONE SEEN The [facility] Comment on above: Performed By: #### 1 0008 ####[facility] [place] [address], [facility] Urine, color STRAW Abnormal YELLOW The [facility] Comment on above: Performed By: #### 1 0008 ####[facility] [facility].[address] Urine, nitrite presence Negative Normal NEGATIVE [facility] Comment on above: Performed By: #### 1 0008 ####[facility] [place] [address], [facility] WBC UA 11-20 Abnormal 0-0 [facility] Comment on above: Performed By: #### 1 0008 ####[facility] Vital Signs Date Time Vital Sign Value Performing Clinician Diego willoughby 01-19-2024 11:23-0500 Body height 157.5 cm Pastora Kohler MOLDING SUPERVISOR Work Phone: [facility] 01-19-2024 11:23-0500 Body mass index (BMI) [Ratio] 51.18 kg/m2 Pastora Kohler MOLDING SUPERVISOR Work Phone: [facility] 01-19-2024 11:23-0500 Body temperature 97.81 [degF] Pastora Kohler MOLDING SUPERVISOR Work Phone: [facility] 01-19-2024 11:23-0500 Body weight 126.92 kg Pastora Kohler MOLDING SUPERVISOR Work Phone: [facility] 01-19-2024 11:23-0500 Diastolic blood pressure 86 mm[Hg] Pastora Kohler MOLDING SUPERVISOR Work Phone: [facility] 01-19-2024 11:23-0500 Heart rate 100 /min Pastora Kohler MOLDING SUPERVISOR Work Phone: [facility] 01-19-2024 11:23-0500 SaO2% (BldA) [Mass fraction] 97 % Pastora Mejíazpatrick MOLDING SUPERVISOR Work Phone: [facility] 01-19-2024 11:23-0500 Systolic blood pressure 150 mm[Hg] Pastora Ackermank MOLDING SUPERVISOR Work Phone: [facility] 12-30-2023 09:56-0500 Body mass index (BMI) [Ratio] 50.5 kg/m2 [facility] 12-30-2023 09:56-0500 Diastolic blood pressure 94 mm[Hg] [facility] 12-30-2023 09:56-0500 Heart rate 86 /min [facility] 12-30-2023 09:56-0500 Respiratory rate 18 /min [facility] 12-30-2023 09:56-0500 SaO2% (BldA) [Mass fraction] 100 % [facility] 12-30-2023 09:56-0500 Systolic blood pressure 136 mm[Hg] [facility] 12-30-2023 09:45-0500 Body height 160.02 cm [facility] 12-30-2023 09:45-0500 Body weight 129.35 kg [facility] 09-23-2023 14:28-0400 Body height 160.02 cm [facility] 09-23-2023 14:28-0400 Body mass index (BMI) [Ratio] 48.6 kg/m2 [facility] 09-23-2023 14:28-0400 Body weight 124.51 kg [facility] 09-23-2023 14:28-0400 Diastolic blood pressure 69 mm[Hg] [facility] 09-23-2023 14:28-0400 Heart rate 82 /min [facility] 09-23-2023 14:28-0400 Respiratory rate 20 /min [facility] 09-23-2023 14:28-0400 SaO2% (BldA) [Mass fraction] 95 % [facility] 09-23-2023 14:28-0400 Systolic blood pressure 104 mm[Hg] [facility] 06-30-2023 14:45-0400 Diastolic blood pressure 87 mm[Hg] Piotr Logan MD Work Phone: [facility] [employer] 06-30-2023 14:45-0400 Heart rate 78 /min Piotr Logan MD Work Phone: [facility] [employer] 06-30-2023 14:45-0400 Respiratory rate 16 /min Piotr Logan MD Work Phone: [facility] [employer] 06-30-2023 14:45-0400 SaO2% (BldA) [Mass fraction] 97 % Piotr Logan MD Work Phone: [facility] [employer] 06-30-2023 14:45-0400 Systolic blood pressure 133 mm[Hg] Piotr Logan MD Work Phone: [facility] [employer] 06-30-2023 12:35-0400 Body temperature 96.21 [degF] Piotr Logan MD Work Phone: [facility] [employer] 06-30-2023 11:05-0400 Body height 157.5 cm Piotr Logan MD Work Phone: [facility] [employer] 06-30-2023 11:05-0400 Body mass index (BMI) [Ratio] 52.61 kg/m2 Piotr Logan MD Work Phone: [facility] [employer] 06-30-2023 11:05-0400 Body weight 130.5 kg Piotr Logan MD Work Phone: [facility] [employer] 05-11-2023 11:54-0400 Body height 160.02 cm [facility] 05-11-2023 11:54-0400 Body mass index (BMI) [Ratio] 51.5 kg/m2 [facility] 05-11-2023 11:54-0400 Body weight 132.05 kg [facility] 05-11-2023 11:54-0400 Diastolic blood pressure 83 mm[Hg] [facility] 05-11-2023 11:54-0400 Heart rate 74 /min [facility] 05-11-2023 11:54-0400 Respiratory rate 20 /min [facility] 05-11-2023 11:54-0400 SaO2% (BldA) [Mass fraction] 98 % [facility] 05-11-2023 11:54-0400 Systolic blood pressure 139 mm[Hg] [facility] 04-07-2023 09:09-0500 Body height 160.02 cm DO Kalie Rumschlag Work Phone: [facility] 04-07-2023 09:09-0500 Body mass index (BMI) [Ratio] 52.6 kg/m2 DO Kalie Rumschlag Work Phone: [facility] 04-07-2023 09:09-0500 Body weight 134.83 kg DO Kalie Rumschlag Work Phone: [facility] 04-07-2023 09:09-0500 Diastolic blood pressure 82 mm[Hg] DO Kalie Rumschlag Work Phone: [facility] 04-07-2023 09:09-0500 Heart rate 80 /min DO Kalie Rumschlag Work Phone: [facility] 04-07-2023 09:09-0500 Respiratory rate 20 /min DO Kalie Rumschlag Work Phone: [facility] 04-07-2023 09:09-0500 SaO2% (BldA) [Mass fraction] 93 % DO Kalie Rumschlag Work Phone: [facility] 04-07-2023 09:09-0500 Systolic blood pressure 130 mm[Hg] DO Kalie Rumschlag Work Phone: [facility] 02-03-2023 08:45-0500 Body height 160.02 cm Lili Aubrey Other [facility] 02-03-2023 08:45-0500 Body mass index (BMI) [Ratio] 52.61 kg/m2 Lili Scally Other [employer] Other 02-03-2023 08:45-0500 Body weight 134.72 kg Lili Scally Other [employer] Other 02-03-2023 08:45-0500 Body weight 134.71 kg DO Kalie Kasper Work Phone: [facility] 02-03-2023 08:45-0500 Diastolic blood pressure Lili Scally Other [employer] Other 02-03-2023 08:45-0500 Respiratory rate 20 /min Lili Scally Other [employer] Other 02-03-2023 08:45-0500 SaO2% (BldA) [Mass fraction] 94 % Lili Scally Other [employer] Other 02-03-2023 08:45-0500 Systolic blood pressure 144 mm[Hg] Lili Scally Other [employer] Other 11-26-2022 09:45-0400 Body height 160.02 cm Lili Scally Other [employer] Other 11-26-2022 09:45-0400 Body mass index (BMI) [Ratio] 51.37 kg/m2 Lili Scally Other [employer] Other 11-26-2022 09:45-0400 Body weight 131.54 kg Lili Scally Other [employer] Other 11-26-2022 09:45-0400 Diastolic blood pressure Lilihebert Burgos Other [employer] Other 11-26-2022 09:45-0400 Respiratory rate 20 /min Lilihebert Alegrialy Other [employer] Other 11-26-2022 09:45-0400 SaO2% (BldA) [Mass fraction] 96 % Lilihebert Burgos Other [employer] Other 11-26-2022 09:45-0400 Systolic blood pressure 124 mm[Hg] Lilihebert Burgos Other [employer] Other 11-25-2022 09:20-0400 Body height 160.02 cm Stoney Turner Other [employer] Other 11-25-2022 09:20-0400 Body mass index (BMI) [Ratio] 52.07 kg/m2 Stoney Turner Other [employer] Other 11-25-2022 09:20-0400 Body weight 133.36 kg Stoney Turner Other [employer] Other 10-30-2022 11:18-0400 Diastolic blood pressure 81 mm[Hg] DO Judith Amanda Work Phone: [facility] 10-30-2022 11:18-0400 Heart rate 94 /min DO Judith Amanda Work Phone: [facility] 10-30-2022 11:18-0400 Respiratory rate 18 /min DO Judith Amanda Work Phone: [facility] 10-30-2022 11:18-0400 SaO2% (BldA) [Mass fraction] 96 % DO Judith Amanda Work Phone: [facility] 10-30-2022 11:18-0400 Systolic blood pressure 159 mm[Hg] DO Judith Amanda Work Phone: [facility] 10-30-2022 09:52-0400 Body height 160.02 cm DO Judith Amanda Work Phone: [facility] 10-30-2022 09:52-0400 Body weight 126.55 kg DO Judith Amanda Work Phone: [facility] 10-09-2022 10:40-0400 Body height 160.02 cm Martine Tobias Other [employer] Other 10-09-2022 10:40-0400 Body mass index (BMI) [Ratio] 52.07 kg/m2 Martine Tobias Other [employer] Other 10-09-2022 10:40-0400 Body weight 133.36 kg Martine Tobias Other [employer] Other 10-09-2022 10:40-0400 Diastolic blood pressure 88 mm[Hg] Martine Tobias Other [employer] Other 10-09-2022 10:40-0400 Systolic blood pressure 154 mm[Hg] Martine Tobias Other [employer] Other 10-03-2022 09:15-0400 Body height 160.02 cm Lili Burgos Other [employer] Other 10-03-2022 09:15-0400 Body mass index (BMI) [Ratio] 52.09 kg/m2 Lili Burgos Other [employer] Other 10-03-2022 09:15-0400 Body weight 133.4 kg Lili Scally Other [employer] Other 10-03-2022 09:15-0400 Diastolic blood pressure 88 mm[Hg] Lili Scally Other [employer] Other 10-03-2022 09:15-0400 Respiratory rate 20 /min Lili Scally Other [employer] Other 10-03-2022 09:15-0400 SaO2% (BldA) [Mass fraction] 65 % Lili Scally Other [employer] Other 10-03-2022 09:15-0400 Systolic blood pressure 143 mm[Hg] Lili Scally Other [employer] Other 09-19-2022 13:49-0400 Diastolic blood pressure 109 mm[Hg] DO Kalie Rumschlag Work Phone: [facility] 09-19-2022 13:49-0400 Heart rate 94 /min DO Kalie Rumschlag Work Phone: [facility] 09-19-2022 13:49-0400 Respiratory rate 20 /min DO Kalie Rumschlag Work Phone: [facility] 09-19-2022 13:49-0400 SaO2% (BldA) [Mass fraction] 96 % DO Kalie Rumschlag Work Phone: [facility] 09-19-2022 13:49-0400 Systolic blood pressure 209 mm[Hg] DO Kalie Rumschlag Work Phone: [facility] 09-19-2022 13:42-0400 Body height 162.56 cm DO Kalie Rumschlag Work Phone: [facility] 09-19-2022 13:42-0400 Body weight 124.73 kg DO Kalieanaya Kasper Work Phone: [facility] 08-12-2022 09:40-0400 Body height 160.02 cm [employer] Other [employer] Other 08-12-2022 09:40-0400 Body mass index (BMI) [Ratio] 50.62 kg/m2 [employer] Other [employer] Other 08-12-2022 09:40-0400 Body weight 129.64 kg [employer] Other [employer] Other 08-12-2022 09:40-0400 Diastolic blood pressure 86 mm[Hg] [employer] Other [employer] Other 08-12-2022 09:40-0400 Systolic blood pressure 150 mm[Hg] [employer] Other [employer] Other 08-01-2022 09:15-0400 Body height 160.02 cm Lili Scally Other [employer] Other 08-01-2022 09:15-0400 Body mass index (BMI) [Ratio] 50.62 kg/m2 Lili Scally Other [employer] Other 08-01-2022 09:15-0400 Body weight 129.64 kg Lili Scally Other [employer] Other 08-01-2022 09:15-0400 Diastolic blood pressure 84 mm[Hg] Lili Scally Other [employer] Other 08-01-2022 09:15-0400 Respiratory rate 18 /min Lili Scally Other [employer] Other 08-01-2022 09:15-0400 SaO2% (BldA) [Mass fraction] 95 % Lili Scally Other [employer] Other 08-01-2022 09:15-0400 Systolic blood pressure 130 mm[Hg] Lili Scally Other [employer] Other 06-06-2022 10:45-0400 Body height 160.02 cm Lili Scally Other [employer] Other 06-06-2022 10:45-0400 Body mass index (BMI) [Ratio] 50.43 kg/m2 Lili Scally Other [employer] Other 06-06-2022 10:45-0400 Body weight 129.14 kg Lili Scally Other [employer] Other 06-06-2022 10:45-0400 Diastolic blood pressure 76 mm[Hg] Lili Scally Other [employer] Other 06-06-2022 10:45-0400 Respiratory rate 18 /min Lili Scally Other [employer] Other 06-06-2022 10:45-0400 SaO2% (BldA) [Mass fraction] 96 % Lili Scally Other [employer] Other 06-06-2022 10:45-0400 Systolic blood pressure 131 mm[Hg] Lili Scally Other [employer] Other 03-06-2022 14:45-0500 Body height 160.02 cm Lili Scally Other [employer] Other 03-06-2022 14:45-0500 Body mass index (BMI) [Ratio] 46.81 kg/m2 Lili Scally Other [employer] Other 03-06-2022 14:45-0500 Body weight 119.89 kg Lili Scally Other [employer] Other 03-06-2022 14:45-0500 Diastolic blood pressure 72 mm[Hg] Lili Scally Other [employer] Other 03-06-2022 14:45-0500 Respiratory rate 18 /min Lili Scally Other [employer] Other 03-06-2022 14:45-0500 SaO2% (BldA) [Mass fraction] 96 % Lili Scally Other [employer] Other 03-06-2022 14:45-0500 Systolic blood pressure 112 mm[Hg] Lili Scally Other [employer] Other 10-28-2021 11:15-0400 Body height 160.02 cm Lili Scally Other [employer] Other 10-28-2021 11:15-0400 Body mass index (BMI) [Ratio] 45.49 kg/m2 Lili Scally Other [employer] Other 10-28-2021 11:15-0400 Body weight 116.48 kg Lili Scally Other [employer] Other 10-28-2021 11:15-0400 Diastolic blood pressure 83 mm[Hg] Lili Scally Other [employer] Other 10-28-2021 11:15-0400 Respiratory rate 18 /min Lili Scally Other [employer] Other 10-28-2021 11:15-0400 SaO2% (BldA) [Mass fraction] 97 % Lili Scally Other [employer] Other 10-28-2021 11:15-0400 Systolic blood pressure 133 mm[Hg] Lili Scally Other [employer] Other 07-04-2021 09:15-0400 Body height 160.02 cm Lili Scally Other [employer] Other 07-04-2021 09:15-0400 Body mass index (BMI) [Ratio] 45.79 kg/m2 Lili Scally Other [employer] Other 07-04-2021 09:15-0400 Body weight 117.26 kg Lili Scally Other [employer] Other 07-04-2021 09:15-0400 Diastolic blood pressure 83 mm[Hg] Lili Scally Other [employer] Other 07-04-2021 09:15-0400 Respiratory rate 18 /min Lili Scally Other [employer] Other 07-04-2021 09:15-0400 SaO2% (BldA) [Mass fraction] 96 % Lili Burgos Other [employer] Other 07-04-2021 09:15-0400 Systolic blood pressure 125 mm[Hg] Lili Burgos Other [employer] Other 11-21-2020 10:30-0400 Body height 160.02 cm Clifford Munoz Jr. Other [employer] Other 11-21-2020 10:30-0400 Body mass index (BMI) [Ratio] 46.97 kg/m2 Clifford Munoz Jr. Other [employer] Other 11-21-2020 10:30-0400 Body weight 120.29 kg Clifford Munoz Jr. Other [employer] Other 11-21-2020 10:30-0400 Diastolic blood pressure 76 mm[Hg] Clifford Munoz Jr. Other [employer] Other 11-21-2020 10:30-0400 Respiratory rate 18 /min Clifford Munoz Jr. Other [employer] Other 11-21-2020 10:30-0400 SaO2% (BldA) [Mass fraction] 97 % Clifford Munoz Jr. Other [employer] Other 11-21-2020 10:30-0400 Systolic blood pressure 123 mm[Hg] Clifford Munoz Jr. Other [employer] Other Encounters Encounter Date Encounter Type Care Provider Facility Start: 01-19-2024 End: 01-19-2024 Bamboo flowsheet Pastora Kohler MOLDING SUPERVISOR Work Phone: [facility] Start: 01-19-2024 End: 01-19-2024 Bamboo flowsheet Pastora Kohler MOLDING SUPERVISOR Work Phone: [facility] Start: 01-19-2024 End: 01-19-2024 Office outpatient visit 15 minutes Pastora Kohler MOLDING SUPERVISOR Work Phone: [facility] Comment on above: Bronchitis (Primary Dx); 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); Wheezing Start: 01-19-2024 End: 01-19-2024 ambulatory PASTORA KOHLER Not Available Start: 01-11-2024 End: 01-13-2024 Refill Judith Patel DO Work Phone: [facility] Comment on above: Primary hypertension (CMS/HCC) Start: 01-05-2024 End: 01-05-2024 ambulatory [facility] Start: 12-30-2023 End: 12-30-2023 ambulatory [facility] Work Phone: Start: 12-30-2023 End: 12-30-2023 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 procedure [facility] Work Phone: Start: 12-29-2023 End: 12-29-2023 Bamboo flowsheet Lauren HILL Work Phone: [facility] Start: 12-29-2023 End: 12-29-2023 Bamboo flowsheet Lauren HILL Work Phone: [facility] Start: 12-29-2023 End: 12-29-2023 Office outpatient visit 25 minutes Lauren HILL Work Phone: [facility] Comment on above: Acute pain of right shoulder (Primary Dx); Arthritis of right acromioclavicular joint Start: 12-29-2023 End: 12-29-2023 ambulatory LAUREN TORRES Not Available Start: 12-24-2023 Non-patient / [facility] Work Phone: Start: 12-11-2023 End: 12-11-2023 Bamboo flowsheet Lauren Torres PA Work Phone: [facility] Start: 12-11-2023 End: 12-11-2023 Bamboo flowsheet Lauren Torres PA Work Phone: [facility] Start: 12-11-2023 End: 12-11-2023 Office outpatient visit 15 minutes Lauren HILL Work Phone: [facility] Comment on above: Acute pain of left k nee (Primary Dx); History of left knee replacement Start: 12-11-2023 End: 12-11-2023 ambulatory LAUREN TORRES Not Available Start: 12-06-2023 End: 12-07-2023 Refill Judith G Amanda DO Work Phone: [facility] Comment on above: Primary hypertension (CMS/HCC) Start: 11-20-2023 End: 11-20-2023 Bamboo flowsheet Lauren Torres PA Work Phone: [facility] Start: 11-20-2023 End: 11-20-2023 Bamboo flowsheet Lauren Torres PA Work Phone: [facility] Start: 11-20-2023 End: 11-20-2023 Office outpatient visit 25 minutes Lauren Torres PA Work Phone: [facility] Comment on above: Acute pain of left k nee (Primary Dx); History of left knee replacement; Left hip pain Start: 11-20-2023 End: 11-20-2023 ambulatory LAUREN TORRES Not Available Start: 09-23-2023 End: 09-23-2023 ambulatory [facility] Work Phone: Start: 09-23-2023 End: 09-23-2023 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 procedure [facility] Work Phone: Start: 09-15-2023 End: 09-15-2023 ambulatory JENNIFER CABRERA Not Available Start: 08-04-2023 End: 08-04-2023 ambulatory PASTORA Nunes [facility] Start: 07-28-2023 End: 07-29-2023 [facility] Start: 07-23-2023 End: 07-23-2023 ambulatory AKANKSHA NICKERSON [facility] Start: 07-16-2023 End: 07-20-2023 ambulatory PASTORA Nunes [facility] Start: 07-16-2023 Encounter for other preprocedural examination [facility] Start: 06-30-2023 End: 06-30-2023 [facility] Start: 06-30-2023 End: 06-30-2023 Subsequent hospital visit by physician Piotr Logan MD Work Phone: [facility] Cardiac Cath/IR Lab Comment on above: Abnormal stress test Start: 06-29-2023 End: 07-18-2023 ambulatory [facility] Start: 06-29-2023 Non-patient / Non-visit [facility] Work Phone: Start: 06-23-2023 End: 06-25-2023 [facility] Start: 06-23-2023 Encounter for preprocedural cardiovascular examination [facility] Start: 06-18-2023 End: 06-20-2023 ambulatory LOPEZ Rayo [facility] Start: 06-15-2023 End: 06-15-2023 ambulatory LOPEZ Rayo [facility] Start: 06-05-2023 End: 06-05-2023 ambulatory AKANKSHA NICKERSON [facility] Start: 06-04-2023 End: 06-04-2023 ambulatory JERI MAGAÑA Not Available Start: 06-04-2023 End: 06-04-2023 ambulatory WOOD Nair JOSH [facility] Start: 06-04-2023 Encounter for other preprocedural examination WOOD Nair [facility] Start: 06-03-2023 End: 06-03-2023 ambulatory WOOD Nair [facility] Start: 05-22-2023 End: 05-22-2023 ambulatory Shawn Jon Facility:[facility] Start: 05-22-2023 End: 05-22-2023 ambulatory Shawn Jon Work Phone: [facility] Work Phone: Start: 05-22-2023 End: 05-22-2023 Departed Referred Shawn Jon Work Phone: [facility] Start: 05-14-2023 End: 05-14-2023 ambulatory DEBORAH Not Available Start: 05-11-2023 End: 05-11-2023 ambulatory [facility] Work Phone: Start: 05-11-2023 End: 05-11-2023 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 procedure [facility] Work Phone: Start: 04-28-2023 End: 04-28-2023 ambulatory SHAWN JON Not Available Start: 04-22-2023 Non-patient / Non-visit [facility] Work Phone: Start: 04-22-2023 End: 04-22-2023 ambulatory PASTORA KOHLER Not Available Start: 04-21-2023 End: 04-21-2023 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 procedure [facility] Work Phone: Start: 04-16-2023 End: 04-16-2023 ambulatory SHAWN JON Not Available Start: 04-07-2023 ambulatory Lili Burgos Facili ty:[facility] Start: 04-07-2023 End: 04-07-2023 ambulatory DO Kalie Rumschlag Work Phone: [facility] Work Phone: Start: 04-07-2023 End: 04-07-2023 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 procedure DO Kalie Rumschlag Work Phone: [facility] Work Phone: Start: 03-26-2023 End: 03-26-2023 ambulatory AKANKSHA Bloom [facility] Start: 03-04-2023 End: 03-04-2023 ambulatory Lili Airamwinston Other [employer] Other Start: 03-04-2023 Telephone encounter Lili matthew [facility] Start: 02-10-2023 End: 02-10-2023 ambulatory JUDITHCHAVA PATEL Not Available Start: 02-03-2023 (DM) Diabetes [facility] Start: 02-03-2023 End: 02-04-2023 ambulatory DO Kalie Rumschlag Work Phone: [employer] Other Start: 02-03-2023 End: 02-03-2023 Discharged Recurring DO Kalie Rumschlag Work Phone: [facility] Work Phone: Start: 02-03-2023 End: 02-03-2023 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 procedure DO Kalie Rumschlag Work Phone: [facility] Work Phone: Start: 01-26-2023 End: 01-26-2023 ambulatory Lili Aubrey Other [employer] Other Start: 01-26-2023 Telephone encounter Lili matthew [facility] Start: 01-02-2023 End: 01-02-2023 ambulatory Lili Burgos Other [employer] Other Start: 01-02-2023 Telephone encounter Lili matthew [facility] Start: 11-26-2022 (DM) Diabetes Lili Airamwinston [facility] Start: 11-26-2022 End: 11-26-2022 ambulatory Lili Airamwinston Other [employer] Other Start: 11-25-2022 End: 11-25-2022 ambulatory Stoney Turner Other [employer] Other Start: 11-25-2022 Office outpatient ne w 30 minutes Stoney Turner [facility] Start: 11-12-2022 End: 11-12-2022 ambulatory Lili Airamwinston Other [employer] Other Start: 11-12-2022 Telephone encounter Lili daltonkatya [facility] Start: 10-30-2022 End: 10-30-2022 ambulatory Martine Tobias Facility:[facility] Start: 10-30-2022 End: 10-30-2022 Admission to same day surgery center DO Judith Amanda Work Phone: [facility] Work Phone: Start: 10-30-2022 End: 10-30-2022 ambulatory DO Judith G Amanda Work Phone: [facility] Work Phone: Start: 10-09-2022 End: 10-09-2022 ambulatory Martine Tobias Other [employer] Other Start: 10-09-2022 Office outpatient vi sit 25 minutes Martine Tobias [facility] Start: 10-07-2022 End: 10-07-2022 ambulatory Martine Tobias Facility:[facility] Start: 10-07-2022 End: 10-07-2022 ambulatory DO Judith G Amanda Work Phone: [facility] Work Phone: Start: 10-07-2022 End: 10-07-2022 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 procedure DO Judith Amanda Work Phone: [facility] Work Phone: Start: 10-03-2022 (DM) Diabetes [facility] Start: 10-03-2022 End: 10-03-2022 ambulatory Lili Airamwinston Other [employer] Other Start: 10-03-2022 Registered Recurring DO Judith Amanda Work Phone: [facility] Work Phone: Start: 09-26-2022 End: 09-26-2022 ambulatory Lili Burgos Other [employer] Other Start: 09-26-2022 Telephone encounter Lililillian Burgos Ace krystlekatya [facility] Start: 09-19-2022 End: 09-19-2022 ambulatory Martine Tobias Facility:[facility] Start: 09-19-2022 End: 09-19-2022 ambulatory DO Kalie Rumschlag Work Phone: [facility] Work Phone: Start: 09-19-2022 End: 09-19-2022 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 procedure DO Kalie Rumschlag Work Phone: [facility] Work Phone: Start: 08-18-2022 End: 08-18-2022 ambulatory Martine Tobias Facility:[facility] Start: 08-18-2022 End: 08-18-2022 ambulatory DO Kalie Rumschlag Work Phone: [facility] Work Phone: Start: 08-18-2022 End: 08-18-2022 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 procedure DO Kalie Kasper Work Phone: [facility] Work Phone: Start: 08-12-2022 End: 08-12-2022 ambulatory Martine Tobias Other [employer] Other Start: 08-12-2022 Office outpatient ne w 45 minutes Martine Tobias [facility] Start: 08-12-2022 Telephone encounter Lili matthew [facility] Start: 08-05-2022 End: 08-05-2022 ambulatory Lili Burgos Other [employer] Other Start: 08-05-2022 Telephone encounter Lili matthew [facility] Start: 08-01-2022 (DM) Diabetes Lili Sequeira [facility] Start: 08-01-2022 End: 08-01-2022 ambulatory Lili Airamly Other [employer] Other Start: 08-01-2022 Registered Recurring DO Kalie Kasper Work Phone: [facility] Work Phone: Start: 07-22-2022 End: 07-22-2022 ambulatory Lili Airamly Other [employer] Other Start: 07-22-2022 Telephone encounter Lili matthew [facility] Start: 07-09-2022 End: 07-09-2022 ambulatory Lililillian Burgos Other [employer] Other Start: 07-09-2022 Telephone encounter Lili Scally [place] [facility] Start: 07-01-2022 End: 07-02-2022 Critical access hospital Facility:[facility] Start: 06-20-2022 End: 06-21-2022 Critical access hospital Facility: Start: 06-16-2022 End: 06-16-2022 ambulatory Lili Airamly Other [employer] Other Start: 06-16-2022 Telephone encounter Lili Aubrey [facility] Start: 06-06-2022 (DM) Diabetes Lili Airamly [facility] Start: 06-06-2022 End: 06-06-2022 ambulatory Lili Airamly Other [employer] Other Start: 06-03-2022 End: 06-03-2022 ambulatory NARENDRANATH LAKSHMIPATHY . Facility: Start: 05-15-2022 End: 05-16-2022 Critical access hospital Facility: Start: 05-13-2022 End: 05-13-2022 ambulatory Lili Airamly Other [employer] Other Start: 05-13-2022 Telephone encounter Lili Aubrey [facility] Start: 04-14-2022 End: 04-14-2022 ambulatory Lili Airamly Other [employer] Other Start: 04-14-2022 Telephone encounter Lili Airamly Ace [facility] Start: 04-03-2022 End: 04-03-2022 ambulatory Lili Scally Other [employer] Other Start: 04-03-2022 Telephone encounter Lili Aubrey [facility] Start: 03-24-2022 End: 03-24-2022 ambulatory Lili Scally Other [employer] Other Start: 03-24-2022 Telephone encounter Lili Scally F krystles [facility] Start: 03-21-2022 End: 03-21-2022 ambulatory Lili Scally Other [employer] Other Start: 03-21-2022 Telephone encounter Lili Scally F krystles [facility] Start: 03-06-2022 (DM) Diabetes Lili Scally [facility] Start: 03-06-2022 End: 03-07-2022 Critical access hospital [facility] [employer] Other Start: 02-13-2022 End: 02-14-2022 Critical access hospital Facility: Start: 12-31-2021 End: 12-31-2021 ambulatory Lili Scally Other [employer] Other Start: 12-31-2021 Telephone encounter Lili Airamly F krystles [facility] Start: 12-11-2021 [facility] Facility: Start: 11-20-2021 End: 11-20-2021 ambulatory Lili Scally Other [employer] Other Start: 11-20-2021 Telephone encounter Lili Airamly F [facility] Start: 11-06-2021 End: 11-07-2021 Critical access hospital Facility: Start: 10-28-2021 (DM) Diabetes Lili Scally [facility] Start: 10-28-2021 End: 10-28-2021 ambulatory Lili Scally Other [employer] Other Start: 09-20-2021 End: 09-20-2021 ambulatory Lili Scally Other [employer] Other Start: 09-20-2021 Telephone encounter Lili Scally F krystles [facility] Start: 09-12-2021 End: 09-12-2021 ambulatory Lili Scally Other [employer] Other Start: 09-12-2021 Telephone encounter Lili matthew [facility] Start: 08-01-2021 End: 08-02-2021 ambulatory [facility] Facility: Start: 07-22-2021 End: 07-22-2021 ambulatory Lili Burgos Other [employer] Other Start: 07-22-2021 Telephone encounter Lili matthew [facility] Start: 07-08-2021 End: 07-08-2021 ambulatory Lili Burgos Other [employer] Other Start: 07-08-2021 Telephone encounter Lili matthew [facility] Start: 07-04-2021 (DM) Diabetes Lili Aubrey [facility] Start: 07-04-2021 End: 07-04-2021 ambulatory Lili Burgos Other [employer] Other Start: 06-20-2021 End: 06-20-2021 ambulatory Cliffordronnie Munoz Other [employer] Other Start: 06-20-2021 Telephone encounter Clifford Tammy Ace [facility] Start: 04-19-2021 End: 04-19-2021 ambulatory Clifford Munoz Other [employer] Other Start: 04-19-2021 Telephone encounter Clifford Munoz Ace [facility] Start: 03-28-2021 End: 03-28-2021 ambulatory Clifford Munoz Other [employer] Other Start: 03-28-2021 Telephone encounter Clifford Tammy Ace [facility] Start: 01-29-2021 End: 01-29-2021 ambulatory Clifford Munoz Jr. Other [employer] Other Start: 01-29-2021 Telephone encounter Clifford Bloom shahid [facility] Start: 11-27-2020 Telephone encounter Clifford [facility] Start: 11-21-2020 (DM) Diabetes Clifford Munoz Jr. [facility] Start: 09-25-2016 End: 09-26-2016 Ambulatory QUE BLAKE Facility:[facility] Start: 09-20-2016 End: 09-20-2016 Emergency department patient visit LAUREN CARDENAS Facility:[facility] Start: 09-08-2016 End: 09-15-2016 Evaluation and management of inpatient QUE BLAKE Facility:[facility] Procedures Date Procedure Procedure Detail Performing Clinician Start: 12-29-2023 Arthrocentesis aspir&/inj interm jt/burs w/o us Lauren HILL Work Phone: Start: 12-29-2023 Radex shoulder complete minimum 2 views Lauren HILL Work Phone: Start: 09-15-2023 Mammography Lauren HILL Work Phone: Start: 06-15-2023 Microscopic observation [Identifier] in Cervix by Cyto stain Piotr Logan MD Work Phone: Start: 10-30-2022 Lumbosacral myelography DO Judith Amanda Work Phone: Start: 10-07-2022 Dual energy X-ray absorptiometry DO Judith Amanda Work Phone: Start: 09-19-2022 MR lumbar spine wo con DO Kalie Rumschla g Work Phone: Start: 08-18-2022 X-ray of lumbar spine, six views including bending views DO Kalie Rumschlag Work Phone: Start: 09-08-2016 REPLACE OF R KNEE JT WITH SYNTH SUB, CEMENT, OPEN APPROACH QUE BLAKE History of operative procedure on knee History of left knee replacement Lauren HILL Work Phone: History of operative procedure on knee History of left knee replacement Lauren HILL Work Phone: Plan of Treatment Date Care Activity Detail Author Start: 06-14-2028 Screening for malign ant neoplasm of cervix [facility] Start: 06-14-2026 Screening for malign ant neoplasm of cervix Pap smear [facility] Start: 05-04-2025 Glaucoma screening Diabetes: R etinopathy Screening [facility] Start: 09-14-2024 Screening for malign ant neoplasm of breast Mammogram [facility] Start: 06-28-2024 Hemoglobin A1c measurement A1C test (Diabetic or Prediabetic) [facility] Start: 06-28-2024 Lipid panel [facility] Start: 05-13-2024 Medicare Annual Wellness (AWV) Medicare Annual Wellness (AWV) [facility] Start: 04-21-2024 Urine screening for protein Diabetes: Urine Protein Screening [facility] Start: 02-23-2024 End: 02-23-2024 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 procedure 02/23/2024 10:00 AM EST [facility] [address] [place] [phone] Lauren Torres PA [address] [facility] [address] [place] [address] [facility] Start: 01-22-2024 End: 01-22-2024 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 procedure 01/22/2024 10:15 AM EST Office Visit [facility] [address] [place] [phone] Lauren Torres PA [address] [facility] [address] [place] [address] [facility] Start: 01-19-2024 End: 01-19-2024 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 procedure 01/19/2024 11:30 AM EST Office Visit [facility] RAJI [address] [place] [address] Pastora Kohler NP [address] [place] [address] Arrived [facility] Comment on above: Arrived Start: 12-11-2023 End: 12-11-2023 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 procedure [facility] Comment on above: Acute pain of left k nee (Primary Dx) Start: 11-20-2023 End: 11-20-2023 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 procedure 11/20/2023 9:00 AM EDT Office Visit [facility] [address] [place] [phone] Lauren Torres PA [address] [place] [address] [place] [address] Acute pain of left knee (Primary Dx) [facility] Comment on above: Acute pain of left k nee (Primary Dx) Start: 10-16-2023 Hemoglobin A1c measurement Diabetes: Hemoglobin A1C [facility] Start: 02-16-2023 Annual Wellness Visi t (Medicare Advantage) Annual Wellness Visit (Medicare Advantage) [facility] Start: 10-30-2022 [facility] Start: 10-30-2022 Computerized axial tomography of lumbar spine with contrast [facility] Start: 02-14-2021 Screening for malign ant neoplasm of breast Breast cancer screen [facility] Start: 2020 Respiratory Syncytia l Virus (RSV) or age 60 yrs+ (1 - 1-dose 60+ series) Respiratory Syncytial Virus (RSV) or age 60 yrs+ (1 - 1-dose 60+ series) [facility] Start: 2010 Shingles vaccine (1 of 2) Shingles vaccine (1 of 2) [facility] Start: 2005 Screening for malign ant neoplasm of colon [facility] Start: 1979 DTaP/Tdap/Td vaccine (1 - Tdap) DTaP/Tdap/Td vaccine (1 - Tdap) [facility] Start: 1979 Urine screening for protein Diabetes: Urine Protein Screening [facility] Start: 1978 GFR test (Diabetes, CKD 3-4, OR last GFR 15-59) GFR test (Diabetes, CKD 3-4, OR last GFR 15-59) [facility] Start: 1978 Glaucoma screening Diabetic retinal exam [facility] Start: 1978 Hepatitis C screening Hepatitis C sc reen [facility] Start: 1978 Urine screening for protein Diabetic Alb to Cr ratio (uACR) test [facility] Start: 1975 HIV screening HIV screen [facility] [employer] Start: 1972 Depression Monitoring Depression Mon itoring [facility] Start: 1970 Diabetic foot examination Diabetic foot exam [facility] Start: 1966 Pneumococcal 0-64 ye ars Vaccine (1 of 2 - PCV) Pneumococcal 0-64 years Vaccine (1 of 2 - PCV) [facility] Start: 1960 Screening for malign ant neoplasm of colon [facility] Comprehensive metabo lic 2000 panel - Serum or Plasma [facility] Oxygen therapy [Mini mum Data Set] Initiate Oxygen Therapy Protocol Respiratory Care Routine As Needed until discontinued starting 06/30/[address] [facility] [employer] Comment on above: As Needed until disc ontinued starting 06/30/2023 Oxygen therapy [Mini mum Data Set] Initiate Oxygen Therapy Protocol Respiratory Care Routine As Needed until discontinued starting 06/30/[address] [facility] [employer] Comment on above: As Needed until disc ontinued starting 06/30/2023 Patient Education [facility] Work Phone: End: 06-26-2023 Percutaneous coronary intervention [email or web address] Work Phone: Comment on above: One Time for 1 Occur rences starting 06/26/2023 until 06/26/2023 XR Hip - left 3 Views XR hip lef t 2 or 3 views Imaging Routine Left hip pain 11/20/2023 9:24 AM EDT [facility] XR Knee - left 1 or 2 Views XR knee 1 or 2 views left Imaging Routine Acute pain of left knee 11/20/2023 9:05 AM EDT [facility] Work Phone: [facility] Immunizations Immunization Date Immunization Notes Care Provider [facility] 11-21-2022 influenza virus vaccine, unspecified formulation Piotr Logan MD Work Phone: [facility] 11-21-2022 influenza, injectabl e, quadrivalent, preservative free Lauren HILL Work Phone: [facility] 11-21-2022 SARS-COV-2 (COVID-19 ) vaccine, mRNA, spike protein, LNP, PF, 50 mcg/0.5 mL Lauren HILL Work Phone: [facility] 02-26-2022 influenza virus vaccine, unspecified formulation Piotr Logan MD Work Phone: [facility] 02-26-2022 influenza, injectabl e, quadrivalent, preservative free Lauren HILL Work Phone: [facility] 06-12-2020 COVID-19 Vaccine Moderna - Documentation Purposes Only Clifford Munoz Jr. Other [facility] 05-15-2020 COVID-19 Vaccine Moderna - Documentation Purposes Only Clifford Munoz Jr. Other [facility] 12-09-2016 influenza virus vaccine, unspecified formulation Piotr Logan MD Work Phone: [facility] 12-09-2016 influenza, injectabl e, quadrivalent, preservative free Lauren Torres PA Work Phone: [facility] 10-17-2016 influenza virus vaccine, unspecified formulation Piotr Logan MD Work Phone: [facility] 01-03-2015 influenza virus vaccine, unspecified formulation Piotr Logan MD Work Phone: [facility] 01-03-2015 influenza, seasonal, injectable, preservative free Lauren HILL Work Phone: [facility] 01-03-2014 influenza virus vaccine, unspecified formulation Piotr Logan MD Work Phone: [facility] 01-03-2014 influenza, seasonal, injectable Lauren HILL Work Phone: [facility] Payers Date Payer Category Payer Medicare (Managed Care) [employer] [id number] 2022 Unknown [employer] A[employer] O [employer] [id number] 2022-Present [address] [place] [id number] 2021 Unknown [id number] 2019 Self-pay [id number] 2017 Medicare [id number] 1960 Unknown [id number] 2.16.840.1.375321.3.579.2 .593 1960 Unknown [id number] 2.16.840.1.127124.3.579.2 .593 1960 Unknown [id number] 2.16.840.1.431112.3.579.2 .593 1960 Unknown [id number] 2.16.840.1.627731.3.579.2 .593 1960 Unknown [id number] 2.16.840.1.044559.3.579.2 .593 1960 Unknown [id number] 2.16.840.1.977597.3.579.2 .593 1960 Unknown [id number] 2.16.840.1.035049.3.579.2 .593 1960 Unknown [id number] 2.16.840.1.974164.3.579.2 .593 1960 Unknown [id number] 2.16.840.1.421075.3.579.2 .593 1960 Unknown [id number] 2.16.840.1.233661.3.579.2 .1286 1960 Unknown [id number] 2.16.840.1.715124.3.579.2 .173 1960 Unknown [id number] 2.16.840.1.877042.3.579.2 .175 1960 Unknown [id number] 2.16.840.1.463440.3.579.2 .175 1960 Unknown [id number] 2.16.840.1.446815.3.579.2 .175 1960 Unknown [id number] 2.16.840.1.222884.3.579.2 .175 1960 Unknown [id number] 2.16.840.1.095723.3.579.2 .175 1960 Unknown [id number] 2.16.840.1.526532.3.579.2 .175 1960 Unknown [id number] 2.16.840.1.624241.3.579.2 .175 1960 Unknown [id number] 2.16.840.1.160951.3.579.2 .175 1960 Unknown [id number] 2.16.840.1.590056.3.579.2 .175 1960 Unknown [id number] 2.16.840.1.021123.3.579.2 .175 1960 Unknown [id number] 2.16.840.1.646111.3.579.2 .1286 1960 Unknown [id number] 2.16.840.1.280435.3.579.2 .1286 1960 Unknown [id number] 2.16.840.1.877430.3.579.2 .1286 1960 Unknown [id number] 2.16.840.1.337264.3.579.2 .1286 1960 Unknown [id number] 2.16.840.1.898428.3.579.2 .128 1960 Unknown [id number] 2.16.840.1.794480.3.579.2 .128 1960 Unknown [id number] 2.16.840.1.580462.3.579.2 .1286 1960 Unknown [id number] 2.16.840.1.751271.3.579.2 .128 1960 Unknown [id number] 2.16.840.1.584241.3.579.2 .1259 1960 Unknown [id number] 2.16.840.1.065977.3.579.2 .9 1960 Unknown [id number] 2.16.840.1.449731.3.579.2 .1259 1960 Unknown [id number] 2.16.840.1.863870.3.579.2 .1259 1960 Unknown [id number] 2.16.840.1.635602.3.579.2 .1259 1960 Unknown [id number] 2.16.840.1.932740.3.579.2 .1259 1960 Unknown [id number] 2.16.840.1.807972.3.579.2 .1259 1960 Unknown [id number] 2.16.840.1.229161.3.579.2 .1258 1960 Unknown [id number] 2.16.840.1.460997.3.579.2 .1258 1960 Unknown [id number] 2.16.840.1.530893.3.579.2 .1258 1960 Unknown [id number] 2.16.840.1.133354.3.579.2 .1258 1960 Unknown [id number] 2.16.840.1.484648.3.579.2 .1258 1960 Unknown [id number] 2..840.1.716289.3.579.2 .1258 1960 Unknown [id number] 2.840.1.947607.3.579.2 .1258 1959 Medicare [id number] 2.840.1.825228.19 1959 Private Health Insurance [id number] Medicare [id number] .840.1.599487.19 Unknown Alexis / [id number] Unknown [id number] 2.840.1.015415.3.579.2 .531 Unknown [id number] 2.840.1.028333.3.579.2 .531 Unknown [id number] 2.16.840.1.143805.3.579.2 .531 Unknown [id number] 2.16.840.1.085418.3.579.2 .531 Unknown [id number] 2.16.840.1.909019.3.579.2 .531 Unknown [id number] 2.16840.1.851106.3.579.2 .531 Unknown [id number] 2.16.840.1.923935.3.579.2 .531 Social History Date Type Detail Facility Unknown if ever smoked [email or web address] Other Start: 05-14-2023 End: 06-15-2023 Sex Assigned At [facility] Work Phone: Start: 01-03-2021 End: 05-11-2023 Tobacco smoking status NHIS Ex-smoker (finding) [facility] Start: 1960 Sex Assigned At Female [facility] End: 06-20-2010 History of tobacco use Current smoker [facility] End: 06-20-2010 History of tobacco use Cigarette Smoker [facility] Start: 11-03-2022 End: 06-15-2023 Tobacco use and exposure Smokeless tobacco non-user [facility] Start: 06-30-2023 End: 01-19-2024 Alcohol intake Ex-drinker (finding) [facility] Start: 05-14-2023 End: 06-15-2023 History of Social function [facility] Work Phone: Start: 1960 Sex Assigned At Not on file [facility] Start: 11-03-2022 Tobacco smoking status ARIS Never smoked tobacco [facility] Start: 10-30-2022 Alcohol Comment caffeine: 3-4 cups per day [facility] Start: 12-30-2023 Sex Female (finding) [facility] NEGATED: Highlighted rowStart: NINF History of tobacco use Passive smoker [facility] Medical Equipment Procedure Code Equipment Code Equipment Origin al Text Equipment Identifier Dates Arthroplasty, knee, total, minimally invasive Orthopaedic cement, non-medicated [id number] FDA Start: 01-03-2021 Arthroplasty, knee, total, minimally invasive Uncoated knee femur prosthesis [id number] FDA Start: 01-03-2021 Arthroplasty, knee, total, minimally invasive Tibial insert [id number] FDA Start: 01-03-2021 Arthroplasty, knee, total, minimally invasive Polyethylene patella prosthesis ()[id number] FDA Start: 01-03-2021 Arthroplasty, knee, total, minimally invasive Uncoated knee tibia prosthesis, metallic [id number] [facility] Start: 01-03-2021 [id number] Start: 01-29-2021 Blood Sugar Diagnostic (Accu-Chek Guide Test Strips) strip Start: 05-06-2023 Blood Sugar Diagnostic (Accu-Chek Guide Test Strips) strip Start: 05-06-2023 End: 05-06-2023 Blood Sugar Diagnostic (Accu-Chek Guide Test Strips) strip Start: 05-06-2023 Blood Sugar Diagnostic (Accu-Chek Guide Test Strips) strip Start: 05-06-2023 End: 05-06-2023 Blood Sugar Diagnostic (Accu-Chek Guide Test Strips) strip Start: 08-03-2023 Lancets (Accu-Ch ek Fastclix Lancet Drum) misc Start: 08-03-2023 Blood Sugar Diagnostic (Accu-Chek Guide Test Strips) strip Start: 05-06-2023 End: 05-06-2023 Blood Sugar Diagnostic (Accu-Chek Guide Test Strips) strip Start: 05-06-2023 End: 08-03-2023 Lancets (Accu-Ch ek Fastclix Lancet Drum) misc Start: 08-03-2023 End: 08-03-2023 Blood Sugar Diagnostic (Accu-Chek Guide Test Strips) strip Start: 08-03-2023 Lancets (Accu-Ch ek Fastclix Lancet Drum) misc Start: 08-03-2023 Blood Sugar Diagnostic (Accu-Chek Guide Test Strips) strip Start: 05-06-2023 End: 05-06-2023 Blood Sugar Diagnostic (Accu-Chek Guide Test Strips) strip Start: 05-06-2023 End: 08-03-2023 Lancets (Accu-Ch ek Fastclix Lancet Drum) misc Start: 08-03-2023 End: 08-03-2023 Clinical Notes 11-21-2020 to 01-19-2024 Pastora Kohler, NIDHI - 01/19/2024 11:30 AM Kyler Torres, SERGIO - 12/29/2023 10:15 AM SERGIO May - 12/11/2023 10:15 AM SERGIO Bailey - 11/20/2023 9:00 AM EDT Note Date & Type Note Facility 01-19-2024 History of Present illness Narrative Images from the original note were not included. Lesli Clay is a 63 y.o. female presents with chief complaint of URI HPI: Upper Respiratory Infection Patient complains of symptoms of a URI. Symptoms include achiness, congestion, cough described as nonproductive, barking, and harsh, nasal congestion, non productive cough, sinus pressure, and wheezing. Onset of symptoms was 1.5 weeks ago, and has been gradually worsening since that time. Treatment to date: cough suppressants. URI Associated symptoms include congestion, coughing, rhinorrhea, a sore throat and wheezing. Pertinent negatives include no chest pain. SUBJECTIVE: MEDICATIONS: Current Outpatient Medications Medication Instructions Accu-Chek FastClix Lancets misc USE DIRECTED TWICE DAILY Accu-Chek Guide test strip USE DIRECTED TWICE DAILY ALPRAZolam (Xanax) 0.5 MG tablet daily as needed ARIPiprazole (Abilify) 15 MG tablet Every 24 hours atorvastatin (LIPITOR) 40 mg, Oral, Daily buPROPion XL (Wellbutrin XL) 300 MG 24 hr tablet daily ergocalciferol (Vitamin D2) 1.25 MG (34508 UT) capsule TAKE 1 CAPSULE BY MOUTH WEEKLY FOR 56 DAYS gabapentin (Neurontin) 300 MG capsule hydrOXYzine pamoate (VISTARIL) 25 mg, 3 times daily PRN insulin degludec (TRESIBA) 48 Units, Subcutaneous, Nightly losartan-hydroCHLOROthiazide (Hyzaar) 50-12.5 MG tablet 1 tablet, Oral, Daily metFORMIN (Glucophage) 1000 MG tablet Every 24 hours metoprolol tartrate (LOPRESSOR) 25 mg, Oral, 2 times daily with meals nortriptyline (Pamelor) 50 MG capsule 2 tabs at bedtime oxyCODONE-acetaminophen (Percocet) 5-325 MG tablet 1 tablet, 3 times daily PRN Ozempic (2 MG/DOSE) 2 mg, Weekly pregabalin (LYRICA) 75 mg, 2 times daily tiZANidine (Zanaflex) 4 MG tablet REVIEW OF SYMPTOMS: Review of Systems Constitutional: Positive for fatigue. Negative for fever. HENT: Positive for congestion, rhinorrhea, sinus pressure and sore throat. Respiratory: Positive for cough and wheezing. Negative for shortness of breath. Cardiovascular: Negative for chest pain and palpitations. Gastrointestinal: Negative. Musculoskeletal: Negative. Skin: Negative. Neurological: Negative. OBJECTIVE: Visit Vitals BP 150/86 (BP Location: Left arm, Patient Position: Sitting, BP Cuff Size: Large adult) Pulse 100 Temp 97.8 F (Tympanic) Ht 5' 2 Wt 279 lb 12.8 oz SpO2 97% BMI 51.18 kg/m Smoking Status Never BSA 2.36 m Physical Exam Vitals and nursing note reviewed. Constitutional: Appearance: She is well-developed. HENT: Head: Normocephalic. Right Ear: Hearing normal. Left Ear: Hearing normal. Nose: Congestion and rhinorrhea present. Mouth/Throat: Mouth: Mucous membranes are moist. Pharynx: Posterior oropharyngeal erythema present. No oropharyngeal exudate. Tonsils: No tonsillar exudate. Cardiovascular: Rate and Rhythm: Normal rate and regular rhythm. Heart sounds: Normal heart sounds. Pulmonary: Effort: Pulmonary effort is normal. Breath sounds: Examination of the right-lower field reveals wheezing. Examination of the left-lower field reveals wheezing. Wheezing present. Abdominal: General: Abdomen is flat. There is no distension. Tenderness: There is no abdominal tenderness. Musculoskeletal: Cervical back: Neck supple. Lymphadenopathy: Cervical: Right cervical: No superficial cervical adenopathy. Left cervical: No superficial cervical adenopathy. Skin: General: Skin is warm. Capillary Refill: Capillary refill takes less than 2 seconds. Neurological: General: No focal deficit present. Mental Status: She is alert and oriented to person, place, and time. ASSESSMENT AND PLAN: Assessment/Plan Diagnoses and all orders for this visit: Bronchitis - benzonatate (Tessalon Perles) 100 MG capsule; Take 1 capsule (100 mg) by mouth 3 (three) times a day as needed for cough for up to 7 days Do not crush or chew. - amoxicillin-clavulanate (Augmentin) 875-125 MG tablet; Take 1 tablet (875 mg) by mouth in the morning and 1 tablet (875 mg) before bedtime. Do all this for 7 days. 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) Wheezing - albuterol HFA 90 mcg/act inhaler; Inhale 2 puffs every 4 (four) hours if needed for wheezing Increase clear liquids. Rest. Updated office tomorrow in improvement. documented in this encounter [facility] 12-29-2023 History of Present illness Narrative Associated Order(s): M Inj/Asp: R acromioclavicular Post-Procedure Diagnose(s): Arthritis of right acromioclavicular joint Images from the original note were not included. HISTORY OF PRESENT ILLNESS: EST PT Lesli Clay is an 63 y.o. @ female. EST PT WITH NEW C/O RT SHOULDER PAIN ~6WKS- NO KNOWN INJURY- SYMPTOMS GRADUALLY INCREASING XRAY RT SHOULDER TODAY EPIC 12/29/23 NO MRI NO CORTISONE INJ NO MDP/PREDNISONE NO PT PAIN MANAGEMENT [facility] PAIN LATERAL SHOULDER- PAIN CAN RADIATE DOWN ARM AND UP NECK- LIMITED ROM- DIFFICULTY RAISING ABOVE SHOULDER LEVEL- +WEAKNESS- CONSTANT ACHE- INCREASE PAIN WITH MOVEMENT- SOME BURNING - PT IS RT HAND DOMINANT S/P LT TKA 01/03/[address] GEORGE HX RT TKA PER DR BLAKE. HX LT MF TRIGGER FINGER RELEASE PER DR GEORGE 08/22/21 ALLERGIES: No Known Allergies HOME MEDICATIONS: Current Outpatient Medications Medication Instructions Accu-Chek FastClix Lancets misc USE DIRECTED TWICE DAILY Accu-Chek Guide test strip USE DIRECTED TWICE DAILY ALPRAZolam (Xanax) 0.5 MG tablet daily as needed ARIPiprazole (Abilify) 15 MG tablet Every 24 hours atorvastatin (LIPITOR) 40 mg, Oral, Daily buPROPion XL (Wellbutrin XL) 300 MG 24 hr tablet daily ergocalciferol (Vitamin D2) 1.25 MG (13027 UT) capsule TAKE 1 CAPSULE BY MOUTH WEEKLY FOR 56 DAYS gabapentin (Neurontin) 300 MG capsule hydrOXYzine pamoate (VISTARIL) 25 mg, Oral, 3 times daily PRN insulin degludec (TRESIBA) 48 Units, Subcutaneous, Nightly losartan-hydroCHLOROthiazide (Hyzaar) 50-12.5 MG tablet 1 tablet, Oral, Daily metFORMIN (Glucophage) 1000 MG tablet Every 24 hours metoprolol tartrate (LOPRESSOR) 25 mg, Oral, 2 times daily with meals nortriptyline (Pamelor) 50 MG capsule 2 tabs at bedtime oxyCODONE-acetaminophen (Percocet) 5-325 MG tablet 1 tablet, Oral, 3 times daily PRN Ozempic (2 MG/DOSE) 2 mg, Subcutaneous, Weekly pregabalin (LYRICA) 75 mg, Oral, 2 times daily tiZANidine (Zanaflex) 4 MG tablet PHYSICAL EXAM: Shoulder Musculoskeletal Exam Inspection Right Right shoulder inspection is normal. Ecchymosis: none Peripheral edema: none Atrophy: none Masses: none Prior incision: arthroscopic portals Incision: well-healed Palpation Right Right shoulder palpation is normal. Crepitus: no crepitus Increased warmth: none Tenderness: present Anterior shoulder: mild Posterior shoulder: none Clavicle: none AC joint: moderate Sternoclavicular joint: none Rotator cuff: none Greater tuberosity: none Trapezius: none Medial scapula: none Bicipital groove: none Proximal biceps: none Distal biceps: none Lateral arm: none Elbow: none Range of Motion Right Right shoulder range of motion is normal. Active ROM: normal and no pain. Passive ROM: normal and no pain. Strength Right External rotation: 5/5. Internal rotation: 5/5. Abduction: 5/5. Abduction is affected by pain. Biceps: 5/5. Triceps: 5/5. Neurovascular Right Radial pulse: normal and 2+ Capillary refill: <3 sec Axillary nerve sensory distribution: normal Scapula Right Right shoulder scapula is normal. Position: normal Winging: none Special Tests Right Rotator Cuff Signs Neer's test: negative Haro test: negative Biceps/tyler Signs Speed's test: negative AC Joint Signs Active horizontal adduction pain: positive Single finger test: positive General Constitutional: appears stated age Labored breathing: no Neurological: alert and oriented x3 Vitals: There is no height or weight on file to calculate BMI. Tobacco Use: Low Risk (12/29/2023) Patient History Smoking Tobacco Use: Never Smokeless Tobacco Use: Never Passive Exposure: Not on file Recent Concern: Tobacco Use - Medium Risk (12/10/2023) Received from [facility] Patient History Smoking Tobacco Use: Former Smokeless Tobacco Use: Never Passive Exposure: Never Alcohol Use: Not on file IMAGING: M Inj/Asp: R acromioclavicular on 12/29/2023 11:00 AM Indications: pain Details: 22 G needle, anterolateral approach Medications: 0.5 mL bupivacaine PF 0.5 % Outcome: tolerated well, no immediate complications -Discussed risks and benfits of AC Joint injection. Patient requesting injection. Point of maximal tenderness located on palpation over AC JOINT. Skin Cleansed with alcohol swab. Utilizing aseptic technique patient given injected into the AC joint without complication. Patient tolerated this well. Post injection care instructions discussed. Procedure, treatment alternatives, risks and benefits explained, specific risks discussed. Consent was given by the patient. Patient was prepped and draped in the usual sterile fashion. Orders Placed This Encounter Procedures XR shoulder 2+ views right Order Specific Question: Reason for exam: Answer: PAIN ASSESSMENT: ICD-10-CM 1. Acute pain of right shoulder M25.511 XR shoulder 2+ views right 2. Arthritis of right acromioclavicular joint M19.011 PLAN: Pt with point tenderness to AC joint, xray discussed with some post surgical changes, but notable arthritis to AC joint.. pt agreeable to injection, warm compress, recheck in 6 wks and consider MRI if needed for possible open jessica. Pt consenting to injection with risk and benefits discussed. Activity modification reviewed. Questions answered in laymen terms at the bedside. The diagnosis, home exercise plan and any ongoing restrictions/ recommendations reviewed. If unable to be reached in office, I recommend evaluation at nearest Emergency Room if any symptoms worsened or new symptoms develop for requiring urgent evaluation. documented in this encounter [facility] 12-11-2023 History of Present illness Narrative Images from the original note were not included. HISTORY OF PRESENT ILLNESS: EST PT Lesli Clay is an 63 y.o. @ female. EST PT RECHECK LT KNEE PAIN-S/P PREDNISONE 11/20/23; GOOD RELIEF - PT DID NOT GET VOLTAREN GEL S/P LT TKA 01/03/[address] GEORGE XRAY LT KNEE/LT HIP EPIC 11/20/23 XRAY EXA 10/02/21 XRAY 02/22/21 EXA HX PT FM POST OP PREDNISONE 11/20/23 NO BONE SCAN NO LABS PAIN MANAGEMENT [facility]H SYMPTOMS ARE NOT GONE BUT LESS SEVERE- INTERMITTENT DISCOMFORT ANTERIOR KNEE - SYMPTOMS WORSE AFTER PROLONG SITTING AND GO TO WALK- DENIES SWELLING- +INSTABILITY - DISCONTINUED USING CANE-+PERCOCET PER PAIN MANAGEMENT TBH HX RT TKA PER DR BLAKE. HX LT MF TRIGGER FINGER RELEASE PER DR GEORGE 08/22/21 ALLERGIES: No Known Allergies HOME MEDICATIONS: Current Outpatient Medications Medication Instructions Accu-Chek FastClix Lancets misc USE DIRECTED TWICE DAILY Accu-Chek Guide test strip USE DIRECTED TWICE DAILY ALPRAZolam (Xanax) 0.5 MG tablet daily as needed ARIPiprazole (Abilify) 15 MG tablet Every 24 hours atorvastatin (LIPITOR) 40 mg, Oral, Daily buPROPion XL (Wellbutrin XL) 300 MG 24 hr tablet daily ergocalciferol (Vitamin D2) 1.25 MG (07459 UT) capsule TAKE 1 CAPSULE BY MOUTH WEEKLY FOR 56 DAYS gabapentin (Neurontin) 300 MG capsule hydrOXYzine pamoate (VISTARIL) 25 mg, Oral, 3 times daily PRN insulin degludec (TRESIBA) 48 Units, Subcutaneous, Nightly losartan-hydroCHLOROthiazide (Hyzaar) 50-12.5 MG tablet 1 tablet, Oral, Daily metFORMIN (Glucophage) 1000 MG tablet Every 24 hours metoprolol tartrate (LOPRESSOR) 25 mg, Oral, 2 times daily with meals nortriptyline (Pamelor) 50 MG capsule 2 tabs at bedtime oxyCODONE-acetaminophen (Percocet) 5-325 MG tablet 1 tablet, Oral, 3 times daily PRN Ozempic (2 MG/DOSE) 2 mg, Subcutaneous, Weekly pregabalin (LYRICA) 75 mg, Oral, 2 times daily tiZANidine (Zanaflex) 4 MG tablet PHYSICAL EXAM: Knee Musculoskeletal Exam Gait Gait is normal. Inspection Leg length disparity: no discrepancy Left Erythema: none Effusion: none Edema: none Ecchymosis: none Deformity: none Alignment: normal Previous incision: anterior Incision: well-healed Palpation Left Left knee palpation is unremarkable. Increased warmth: none Masses: none Tenderness: none Range of Motion Left Left knee range of motion is normal and full. Strength Left Left knee strength is normal. Extension: 5/5. Flexion: 5/5. Instability Left Instability signs: none - stable Varus stress grade: normal Valgus stress grade: normal Neurovascular Left Left knee neurovascular exam is normal. Pulses - PT: normal Posterior tibial: 2+ Capillary refill: warm and well-perfused Special Signs Left Left knee special signs are normal. Patellar apprehension: none General Constitutional: appears stated age Labored breathing: no Psychiatric: normal mood and affect Neurological: alert Skin: intact Lymphadenopathy: none Vitals: There is no height or weight on file to calculate BMI. Tobacco Use: Low Risk (12/11/2023) Patient History Smoking Tobacco Use: Never Smokeless Tobacco Use: Never Passive Exposure: Not on file Alcohol Use: Not on file IMAGING: Procedures No orders of the defined types were placed in this encounter. ASSESSMENT: ICD-10-CM 1. Acute pain of left knee M25.562 2. History of left knee replacement Z96.652 PLAN: Benign exam. Pt reports some limping with back pain present. No pain with rom hip or knee today. Mild soreness to medial and lateral retinaculum.. recommend Warm water therapy, ,recheck in 6 wks... consider xray if painful. Pt agreeable to hold on bone scan/ labs with exam, can't afford co-pay for formal therapy at this time.. will try topical voltaren gel and use pool at therapy center which has benefited her in the past.. pt thankful Questions answered in laymen terms at the bedside. The diagnosis, home exercise plan and any ongoing restrictions/ recommendations reviewed. If unable to be reached in office, I recommend evaluation at nearest Emergency Room if any symptoms worsened or new symptoms develop for requiring urgent evaluation. documented in this encounter [facility] 10-04-2024 History of Present illness Narrative Images from the original note were not included. HISTORY OF PRESENT ILLNESS: EST PT Lesli Clay is an 63 y.o. @ female. EST PT WITH FLARE UP LT KNEE PAIN ~7-8MO- NO KNOWN INJURY S/P LT TKA 01/03/[address] GEORGE XRAY LT KNEE/LT HIP TODAY EPIC 11/20/23 XRAY EXA 10/02/21 XRAY 02/22/21 EXA HX PT FM POST OP NO MDP NO BONE SCAN PAIN MANAGEMENT TBH PAIN ANTERIOR KNEE- INTERMITTENT SWELLING- FEELS LIKE IT WANTS TO GIVE OUT- INCREASE SYMPTOMS AFTER PROLONG SITTING- PT STATES SHE CAN HARDLY WALK AFTER SITTING FOR A HALF HR-USES CAN OCCASIONALLY - +PERCOCET PER PAIN MANAGEMENT [facility]H HX RT TKA PER DR BLAKE. HX LT MF TRIGGER FINGER RELEASE PER DR GEORGE 08/22/21 ALLERGIES: No Known Allergies HOME MEDICATIONS: Current Outpatient Medications Medication Instructions Accu-Chek FastClix Lancets misc USE DIRECTED TWICE DAILY Accu-Chek Guide test strip USE DIRECTED TWICE DAILY ALPRAZolam (Xanax) 0.5 MG tablet daily as needed ARIPiprazole (Abilify) 15 MG tablet Every 24 hours atorvastatin (LIPITOR) 40 mg, Oral, Daily buPROPion XL (Wellbutrin XL) 300 MG 24 hr tablet daily ergocalciferol (Vitamin D2) 1.25 MG (95851 UT) capsule TAKE 1 CAPSULE BY MOUTH WEEKLY FOR 56 DAYS gabapentin (Neurontin) 300 MG capsule hydrOXYzine pamoate (VISTARIL) 25 mg, Oral, 3 times daily PRN insulin degludec (TRESIBA) 48 Units, Subcutaneous, Nightly losartan-hydroCHLOROthiazide (Hyzaar) 50-12.5 MG tablet 1 tablet, Oral, Daily metFORMIN (Glucophage) 1000 MG tablet Every 24 hours metoprolol tartrate (LOPRESSOR) 25 mg, Oral, 2 times daily with meals nortriptyline (Pamelor) 50 MG capsule 2 tabs at bedtime oxyCODONE-acetaminophen (Percocet) 5-325 MG tablet 1 tablet, Oral, 3 times daily PRN Ozempic (2 MG/DOSE) 2 mg, Subcutaneous, Weekly predniSONE (Deltasone) 20 MG tablet Take 2 tablets (40 mg) by mouth Daily for 5 days, THEN 1 tablet (20 mg) Daily for 5 days. Take with food. pregabalin (LYRICA) 75 mg, Oral, 2 times daily tiZANidine (Zanaflex) 4 MG tablet PHYSICAL EXAM: Knee Musculoskeletal Exam Gait Gait is normal. Limp: left Limp comment: slight Inspection Leg length disparity: no discrepancy Left Erythema: none Effusion: none Edema: none Ecchymosis: none Deformity: none Alignment: normal Previous incision: anterior Incision: well-healed Palpation Left Left knee palpation is unremarkable. Increased warmth: none Masses: none Tenderness: present Tenderness comment: + pain to medial and lateral femoral condyles, no warmth Lateral retinaculum: moderate Medial retinaculum: moderate Range of Motion Left Left knee range of motion is normal and full. Active flexion: 110 Passive flexion: 115 Range of motion additional comments: + pain in knee with Hip IR and ER motion.. not pain with FADIR. No pain with MCL or LCL stress. Strength Left Left knee strength is normal. Extension: 5/5. Flexion: 5/5. Instability Left Instability signs: none - stable Varus stress grade: normal Valgus stress grade: normal Neurovascular Left Left knee neurovascular exam is normal. Pulses - PT: normal Posterior tibial: 2+ Capillary refill: warm and well-perfused Special Signs Left Left knee special signs are normal. Patellar apprehension: none General Constitutional: appears stated age Labored breathing: no Psychiatric: normal mood and affect Neurological: alert Skin: intact Lymphadenopathy: none Vitals: There is no height or weight on file to calculate BMI. Tobacco Use: Low Risk (11/20/2023) Patient History Smoking Tobacco Use: Never Smokeless Tobacco Use: Never Passive Exposure: Not on file Recent Concern: Tobacco Use - Medium Risk (09/09/2023) Received from [facility] Patient History Smoking Tobacco Use: Former Smokeless Tobacco Use: Never Passive Exposure: Never Alcohol Use: Not on file IMAGING: XR knee 1 or 2 views left Imaging Result: XR hip left 2 or 3 views Imaging Result: Procedures Orders Placed This Encounter Procedures XR knee 1 or 2 views left Order Specific Question: Reason for exam: Answer: PAIN XR hip left 2 or 3 views Order Specific Question: Reason for exam: Answer: PAIN ASSESSMENT: ICD-10-CM 1. Acute pain of left knee M25.562 XR knee 1 or 2 views left predniSONE (Deltasone) 20 MG tablet 2. History of left knee replacement Z96.652 3. Left hip pain M25.552 XR hip left 2 or 3 views PLAN: Recommend Prednisone taper and Voltaren gel 1%. Pt denies fever, illness or fall. Xray appears stable along with hip, consider labs and bone scan if not improving.. pt thankful. Risk and benefits of steroid discussed. Questions answered in laymen terms at the bedside. The diagnosis, home exercise plan and any ongoing restrictions/ recommendations reviewed. If unable to be reached in office, I recommend evaluation at nearest Emergency Room if any symptoms worsened or new symptoms develop for requiring urgent evaluation. documented in this encounter [facility] 06-30-2023 Hospital Discharge instructions Gladys Frias RN - 06/30/2023 1:04 PM EDT Images from the original note were not included. DISCHARGE INSTRUCTIONS / ARM CARE POST CATHERIZATION Home Care Ok to shower in AM. Discontinue pressure dressing in 24 hours. Do not apply band aids. KEEP SITE CLEAN DRY AND OPEN TO THE AIR. No powder or lotion. Do not soak in a pool or tub and do not swim for one week. If there is any bleeding at the catheter site, apply firm pressure directly over site with your hand until the bleeding stops. If bleeding continues after 3 minutes call 911. If there is any swelling or firm areas at your puncture site, this could be bleeding under the skin(hematoma), and if you have any concerns seek help immediately. Drink plenty of fluids after the test. This will flush the x-ray dye from your system. Return to your normal diet. NO STRENUOUS LIFTING WITH AFFECTED ARM FOR 3 DAYS ANYTHING HEAVIER THAN 8 TO 10 POUNDS WATCH FOR SIGNS OF INFECTION / REDNESS / SWELLING / DRAINAGE / WARMTH / TEMPERATURE GREATER THAN 101 IF AREA BECOMES HARD AND SWOLLEN AND IF YOU ARE AT ALL CONCERNED SEEK HELP IMMEDIATELY SEEK HELP IMMEDIATELY IF AFFECTED ARM BECOMES COLD / NUMB / SEVERE PAIN / NAILBEDS TURN BLUE IF ON METFORMIN / GLUCOPHAGE DO NOT RESTART MEDICATION FOR 48 HOURS CALL 911 if you have symptoms including: Drooping facial muscles Changes in vision or speech Difficulty walking or using your limbs Change in sensation to affected leg, including numbness, feeling cold, or change in color Extreme sweating, nausea or vomiting Dizziness or lightheadedness Chest pain Rapid, irregular heartbeat Palpitations Cough, shortness of breath, or difficulty breathing Weakness or fainting If you think you have an emergency, CALL 911 . Coronary artery disease (CAD) occurs when plaque builds up in the arteries that bring oxygen-rich blood to your heart. Plaque is a fatty substance made of cholesterol, calcium, and other substances in the blood. This process is called hardening of the arteries, or atherosclerosis. What happens when you have coronary artery disease? Plaque may narrow the coronary arteries. Narrowed arteries cause poor blood flow. This can lead to angina symptoms such as chest pain or discomfort. If blood flow is completely blocked, you could have a heart attack. You can slow CAD and reduce the risk of future problems by making changes in your lifestyle. These include quitting smoking and eating heart-healthy foods. Treatments for CAD, along with changes in your lifestyle, can help you live a longer and healthier life. How can you prevent coronary artery disease? Do not smoke. It may be the best thing you can do to prevent heart disease. If you need help quitting, talk to your doctor about stop-smoking programs and medicines. These can increase your chances of quitting for good. Be active. Get at least 30 minutes of exercise on most days of the week. Walking is a good choice. You also may want to do other activities, such as running, swimming, cycling, or playing tennis or team sports. Eat heart-healthy foods. Eat more fruits and vegetables and less foods that contain saturated and trans fats. Limit alcohol, sodium, and sweets. Stay at a healthy weight. Lose weight if you need to. Manage other health problems such as diabetes, high blood pressure, and high cholesterol. Talk to your doctor about taking a daily aspirin. Manage stress. Stress can hurt your heart. To keep stress low, talk about your problems and feelings. Don't keep your feelings hidden. How is coronary artery disease treated? Your doctor will suggest that you make lifestyle changes. For example, your doctor may ask you to eat healthy foods, quit smoking, lose extra weight, and be more active. You will have to take medicines. Your doctor may suggest a procedure to open narrowed or blocked arteries. This is called angioplasty. Or your doctor may suggest using healthy blood vessels to create detours around narrowed or blocked arteries. This is called bypass surgery. Follow-up care is a todd part of your treatment and safety. Be sure to make and go to all appointments, and call your doctor if you are having problems. It's also a good idea to know your test results and keep a list of the medicines you take. SEDATION / ANALGESIA INFORMATION / HOME GOING ADVICE You have received the sedation/analgesia medication during your visit Sedation/analgesia is used during short medical procedures under controlled supervision. The medication will produce a strong relaxation. You will be able to hear, speak and follow instructions, but your memory and alertness will be decreased. You will be able to swallow and breathe on your own. During sedation/analgesia your blood pressure, heart and breathing will be watched closely. After the procedure, you may not remember what was said or done. You may have the following effects from the medication. Drowsiness, dizziness, sleepiness or confusion. Difficulty remembering or delayed reaction times. Loss of fine muscle control or difficulty with your balance especially while walking. Difficulty focusing or blurred vision. You may not be aware of slight changes in your behavior and/or your reaction time because of the medication used during the procedure. Therefore you should follow these instructions. Have someone responsible help you with your care. Do not drive for 24 hours. Do not operate equipment for 24 hours (lawnmowers, power tools, kitchen accessories, stove). Do not drink any alcoholic beverages for a minimum of 24 hours. Do not make important personal, legal or business decisions for 24 hours. You may experience dizziness or lightheadedness. Move slowly and carefully, do not make sudden position changes. Drink extra amounts of fluids today. Increase your diet as tolerated (unless you have received specific instructions from your doctor). If you feel nauseated, continue with liquids until the nausea is gone. Notify your physician if you have not urinated within 8 hours after the procedure. Resume your medications unless otherwise instructed. documented in this encounter [facility] 06-30-2023 History of Present illness Narrative Patient admitted, consent signed and questions answered. Patient ready for procedure. Call light to reach with side rails up 2 of 2. Bilateral groin clipped with remote mortgage underwriter and Gabrielle NGUYEN present. Salvador at bedside with patient. History and physical needs updated. documented in this encounter [facility] 04-07-2023 Evaluation note Authored April 07, 2023 [...] return in 2 weeks for download with hospital educator and in approximately 4 week follow up with provider. Encouraged to return for follow up visit. 45 minutes spent on education with Jodi DAIGLE RN. [facility] Work Phone: [phone]) 244-703702-20-2024 Evaluation note* Author Kaya Tomlinson [facility] Authored April 07, 2023 11:54am Patient [...] for Bella CGM will be sent to [facility] to determine cost for CGM. Patient provided contact number for [facility]. If pt is unable to afford CGM, pt instructed to continue use of her personal meter. Pt to return in 2 weeks for download with hospital educator and in approximately 4 week follow up with provider. Encouraged to return for follow up visit. 45 minutes spent on education with Jodi BUTLERN, RN. Author Lili [facility] Authored May 11, 2023 1:1 8pm Meter: [...] have likely improved. Checking on CGM from [facility]-- processing 4 weeks ago, would benefit from surveillance --: but cost prohibitive ($130/ 3mos per [facility] Reduce Tresiba to 48 u once daily [...] of hypoglycemia, hyperglycemia, or diabetes medication issues. [facility] Work Phone: 1(420) 507-336912-19-2023 Evaluation note* Encounter Date Diagnosis Assessment Notes Treatment Notes Treatment Clinical Notes Jan, Type 2 diabetes mellitus with hyperglycemia (ICD-10 - E11.65) ASSESSMENT: 1. Controlled, a Type 2 diabetes with A1c of 9.7%, was 8.0%. Worsening. 2. Out of Jardiance X3 weeks should not have impacted A1c to this degree, but needs to restart. Defers CGM d/t cost. Sampled Synnavidrdy 12.06/999 and given voucher Jardiance_ _ should buy 6 weeks of treatment with SGLT2i while settling out LOW INCOME SUBSIDY as recommended by for PAP Aubree. (knows to hold Metfromin [...] of insulin. Patient deferred due to her soc-gu-vuzsmu cost. We will retry in a couple [...] Jan, BMI 50.0-59.9, adult (ICD-10 - Z68.43) [employer] Other 10-11-2023 Evaluation note* Encounter Date Diagnosis [...] of insulin. Patient deferred due to her oee-lx-mpncgt cost. We will retry in a couple [...] Nov, BMI 50.0-59.9, adult (ICD-10 - Z68.43) [facility] Other 10-10-2023 Evaluation note* Encounter Date Diagnosis [...] Nov, Other chronic pain (ICD-10 - G89.29) [facility] Other 08-24-2023 Evaluation note* Encounter Date Diagnosis [...] of lumbar spinal fusion (ICD-10 - Z98.1) [facility] Other 08-18-2023 Evaluation note* Encounter Date Diagnosis [...] of insulin. Patient deferred due to her qlj-ak-wrfevp cost. 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 Shows posterior mechanical fusion at the L1-S1 with posterior decompression at the L1-L3. Patient had physical therapy at [facility] and continues to do the home physical therapy without improvement. Will order xray lumbar 6 view to rule out any spondylolisthesis. Will order MRI to rule out any cord compression. Will get release of information from pain management Dr. Cook and [facility] physical therapy for continuity of care.Will order Aqua therapy. OARRS reviewed. pharmacological management reviewed, will continue with current prescriptions as prescribed. Will add lidocaine patch and xpey-ctg-afbwqkq Thermo patch. Will follow-up in 8 weeks [...] rule out osteoporosis Jul, Other OARRS reveiwed [facility] Other 06-16-2023 Evaluation note* Encounter Date Diagnosis [...] of insulin. Patient deferred due to her tpy-do-rzwirj cost. 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 Weight up today without decrease in insulin needs, no increases satiety The patient was given a Dexcom G6 sample and loaned an Office owned Dexcom G6 Commercial Insurance Underwriter. The sensor was placed on the back of her right arm by this educator. The patient was shown how to unlock the media services specialist and read her BG. 15 minutes were spent placing the sensor and educating the patient by Lit Dixon RN, [facility] . [employer] Other 03-30-2023 NoteCONSULTATION CONSULTATION DATE: 05/15/2022 TO: Judith Patel D.O. 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 Weight up today without decrease in insulin needs, no increases satiety [facility] Other 12-29-2022 NoteCONSULTATION CONSULTATION DATE: 02/13/2022 HISTORY [...] is able to walk unassisted. Medications include Russell 5/325 t.i.d., baclofen 10 mg q.h. s., [...] A referral will be sent to [facility] to Dr. Moses Goetz for evaluation and patient is in complete agreement with this. We will continue to maintain her medications at this time, which will include Lyrica, Russell and baclofen. We will see the patient in three months' time, unless otherwise indicated. Patient was asked to call the office with an update once she has seen Neurosurgery.[facility] 12-31-2021 Evaluation note* Encounter Date Diagnosis Assessment Notes Treatment Notes Treatment Clinical Notes Dec, Type 2 diabetes mellitus with hyperglycemia (ICD-10 - E11.65) [facility] Other 09-21-2022 NoteCONSULTATION CONSULTATION DATE: 11/06/2021 HISTORY [...] secondary to her pain. Current medications include Russell 5/325 t.i.d., baclofen 10 mg q.h.s., Pamelor [...] indicated, and patient agrees with this plan.[id number] Evaluation note* Encounter Date Diagnosis Assessment Notes [...] Instructions material was published to portal Oct, [facility] current use of insulin (ICD-10 - Z79.4) Oct, BMI 45.0-49.9, adult (ICD-10 - Z68.42) Expect improvement with escalation of Ozempic to 2.0 mg subcu daily. Weight slightly improving. hopeful for continue reduction to increase insulin sensitivity and decrease insulin needs. [facility] Other 06-16-2022 NoteCONSULTATION CONSULTATION DATE: 08/01/2021 HISTORY [...] burn but manageable. Her current medications are Russell 5/325 t.i.d., baclofen 10 mg q.h.s. and [...] move forward with aqua therapy at the [place] location. I did discuss vitamins with her as well as nutrition importance. Patient will be seen at the clinic in three months' time unless otherwise indicated. [facility] Signed and Approved by: ALICIA HERNANDEZ . 08/14/2021 16:24:00[facility]05-23-2022 Evaluation note* Encounter Date Diagnosis Assessment Notes Treatment Notes Treatment Clinical Notes June, Type 2 diabetes mellitus with hyperglycemia (ICD-10 - E11.65) [facility] Other 05-19-2022 Evaluation note* Encounter Date Diagnosis [...] Vitamin D material was published to portal 19 May, 2022 Dietary counseling and surveillance (ICD-10 - Z71.3) [employer] Healthy Weight material was published to portal June, Hyperlipidemia (ICD-10 - E78.5) [employer] About High Cholesterol material was published to portal June, HTN (hypertension) (ICD-10 - I10) High Blood Pressure: Care Instructions material was published to portal June, 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 [facility] Other 10-06-2021 Evaluation note* Encounter Date Diagnosis [...] Prescriptions: None needed at this time. 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) Nov, HTN (hypertension) (ICD-10 - I10) High Blood Pressure: Care Instructions material was published to [employer] Nov, Hyperlipidemia (ICD-10 - E78.5) [employer] About High Cholesterol material was published to [employer] Nov, Dietary counseling and surveillance (ICD-10 - Z71.3) Learning About Healthy Weight material was published to [employer] Nov, BMI 45.0-49.9, adult (ICD-10 - Z68.42) Nov, Albuminuria (ICD-10 - R80.9) Nov, BMI 50.0-59.9, adult (ICD-10 - Z68.43) Nov, Other Learning About Vitamin D material was published to [employer] Other Evaluation noteNo [employer] Other Evaluation noteNo assessment information available [facility] Work Phone: Evaluation note* Diagnosis Onset Date Resolution Status Type 2 diabetes mellitus with hyperglycemia acute [facility] Work Phone: Evaluation note* Diagnosis Abnormal stress test Other nonspecific abnormal cardiovascular system function study [facility] Diagnosis Onset Date Resolution Status Hyperlipemia acute Hypertension acute Type 2 diabetes mellitus with hyperglycemia acute [facility] Work Phone: Evaluation note* Diagnosis Acute pain of left knee- Primary History of left knee replacement Left hip pain Pain in joint, pelvic region and thigh documented in this encounter [facility] HealthcareEvaluation [facility]* Diagnosis Wellness examination- Primary Encounter for screening mammogram for malignant neoplasm of breast Heart murmur, systolic Preoperative clearance Unspecified pre-operative examination Primary hypertension (CMS/HCC) Unspecified essential hypertension BMI 50.0-59.9, adult (CMS/HCC) Mixed hyperlipidemia (CMS/HCC) Mixed hyperlipidemia Recurrent major depressive disorder, in partial remission (HCC) ([facility]) Type 2 diabetes mellitus with hyperglycemia, with long-term current use of insulin ([facility]/HCC) Primary hypertension (CMS/HCC) Unspecified essential hypertension documented in this encounter [facility] HealthcareEvaluation note* Diagnosis Wellness examination- Primary Encounter for screening mammogram for malignant neoplasm of breast Heart murmur, systolic Preoperative clearance Unspecified pre-operative examination Primary hypertension (CMS/HCC) Unspecified essential hypertension BMI 50.0-59.9, adult (CMS/HCC) Mixed hyperlipidemia (CMS/HCC) Mixed hyperlipidemia Recurrent major depressive disorder, in partial remission (HCC) ([facility]/HCC) Type 2 diabetes mellitus with hyperglycemia, with long-term current use of insulin ([facility]) Acute pain of left knee- Primary History of left knee replacement documented in this encounter [facility] HealthcareEvaluation note* Diagnosis Onset Date Resolution Status Admit Date Dietary counseling and surveillance acute December 29, 024 9:39am Encounter for long-term (current) insulin use acute December 172023 9:39am Hyperlipemia acute December h, 2023 9:39am Hypertension acute December h, 2023 9:39am Type 2 diabetes mellitus wit h hyperglycemia acute December 29, 024 9:39am Vitamin D deficiency, unspecified acute December 29, 2 024 9:39am [facility] Work Phone: Evaluation note* Diagnosis Wellness examination- Primary Encounter for screening mammogram for malignant neoplasm of breast Heart murmur, systolic Preoperative clearance Unspecified pre-operative examination Primary hypertension (CMS/HCC) Unspecified essential hypertension BMI 50.0-59.9, adult (CMS/HCC) Mixed hyperlipidemia (CMS/HCC) Mixed hyperlipidemia Recurrent major depressive disorder, in partial remission (HCC) (CMS/HCC) Type 2 diabetes mellitus with hyperglycemia, with long-term current use of insulin (CMS/HCC) Acute pain of right shoulder- Primary Arthritis of right acromioclavicular joint documented in this encounter [facility] HealthcareEvaluation note* Diagnosis Wellness examination- Primary Encounter for screening mammogram for malignant neoplasm of breast Heart murmur, systolic Preoperative clearance Unspecified pre-operative examination Primary hypertension (CMS/HCC) Unspecified essential hypertension BMI 50.0-59.9, adult (CMS/HCC) Mixed hyperlipidemia (CMS/HCC) Mixed hyperlipidemia Recurrent major depressive disorder, in partial remission (HCC) (CMS/HCC) Type 2 diabetes mellitus with hyperglycemia, with long-term current use of insulin (CMS/HCC) Bronchitis- Primary Bronchitis, not specified as acute or chronic 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) Wheezing documented in this encounter [facility] HealthcareHistory general Narrative - Reported* Type Description Date Medical History RSD Medical History fibromyalgia Medical History hypertension Medical History type II diabetes Surgical History C section X3 Surgical History rotator cuff tear repair Surgical History back surgery x3 Surgical History knee surgery Surgical History hysteroscopy 05/30 Surgical History c5-c6 plates & screws Surgical History D&C 05/30 Hospitalization History see above [facility] Other History general Narrative - Reported* Type [...] replacement, Left 12/2020 Hospitalization History see above [facility] Other History general Narrative - Reported* Type [...] replacement, Left 12/2020 Hospitalization History see above [facility] Other History general Narrative - Reported* Type [...] bilatera l 2021 Hospitalization History see above [facility] Other History general Narrative - Reported* Type [...] Hospitalization History see above Hospitalization History [facility]- Flu 02/2022 [facility] Other History general Narrative - Reported* Type [...] Hospitalization History see above Hospitalization History [facility]- Flu 02/2022 [facility] Other History general Narrative - [facility] Other Summary Purpose Family History No Family [...] Unknown Family history of thyroid disease Unknown Relationship Condition Age at Onset Recorded Date/T jaycee mother Hypertension Unknown Myocardial infarction Unknown father Pneumonia Unknown Unknown father Malignant neoplasm Unknown Heart disease Unknown mother Unknown Hypertension Unknown sister Malignant neoplasm Unknown Family history of thyroid disease Unknown Advance Directives No Advanced Directives Records Found Advance Directive Response Recorded Date/ Time Advance Directives No January 17, 2020 3:49pm Advance Directive Response Recorded Date/ Time Advance Directives No January 17, 2020 2:49pm Latest Code Status on File Code Status Date Activated Date Inactivated Comments Full Code 06/30/2023 10:53 AM Chief Complaint and Reason for Visit Chief [...] use Type 2 diabetes mellitus with hyperglycemia Chief Complaint DMN f/u / meter Reason for Visit Hyperlipemia Hypertension Type 2 diabetes mellitus with hyperglycemia Chief Complaint Admit Date 3 month f/u-DMN f/u-METER December 30, 2023 9:39am Reason for Visit Admit Date Dietary counseling and surveillance Baljit maldonado 2023 9:39am Encounter for long-term (current) insuli n use December 30, 2023 9:39am Hyperlipemia December 30, 2023 9:39am Hypertension December 30, 2023 9:39am Type 2 diabetes mellitus with hyperglyce bobby December 30, 2023 9:39am Vitamin D deficiency, unspecified Novemb er 2023 9:39am Reason for Referral Reason EMG bilat lower extr emities Diagnosis 1 BMI 50.0-59.9, adult (Z68.43) Referral Organization [facility] urosurgery Referring Provider First Name Martine Referring Provider Last Name Tobias Referring Provider Specialty Nurse Pract itioner Referred Organization [facility] [address]erred Address [address] [place],[address] Referred Provider Specialty Neurology Referral Priority Routine Reason evaluate and treat - tremors Diagnosis 1 BMI 50.0-59.9, adult (Z68.43) Referral Organization [facility] urosurger Referring Provider First Name Martine Referring Provider Last Name Tobias Referring Provider Specialty Nurse Pract itioner Referred Organization [facility] Referred Address [address] [place],[address] Referred Provider Specialty Neurology Referral Priority Routine Reason Evaluate and treat - osteoporosis Diagnosis 1 BMI 50.0-59.9, adult (Z68.43) Referral Organization [facility]rosurger Referring Provider First Name Martine Referring Provider Last Name Tobias Referring Provider Specialty Nurse Pract itioner Referred Organization [facility] Referred Provider Jennifer Siu Referred Address [address] [place], [place],[address] Referred Provider Specialty Nurse Pracphilipp mendez Referral Priority Routine Additional Source Comments INFORMATION SOURCE (unrecogn ized section and content) DATE CREATED AUTHOR 08/12/2017 [facility] DATE CREATED AUTHOR AUTHOR'S ORGANIZ ATION 07/02/2022 [facility] DATE CREATED AUTHOR AUTHOR'S ORGANIZ ATION 05/31/2023 [facility] DATE CREATED AUTHOR AUTHOR'S ORGANIZ ATION 06/01/2023 [facility] [facility] DATE CREATED AUTHOR AUTHOR'S ORGANIZ ATION 06/04/2023 [facility] DATE CREATED AUTHOR AUTHOR'S ORGANIZ ATION 06/30/2023 [facility] DATE CREATED AUTHOR AUTHOR'S ORGANIZ ATION 12/11/2023 [facility] DATE CREATED AUTHOR AUTHOR'S ORGANIZ ATION 01/07/2024 [facility] DATE CREATED AUTHOR AUTHOR'S ORGANIZ ATION 01/21/2024 [facility] EPIC REASON FOR VISIT (unrecogniz ed section and content) Specialty Diagnoses / Procedures Referred By Alok carson Referred To Contact Diagnoses Abnormal stress test Abnormal stress test [R94.39] Procedures NH CATH PLMT L HRT & ARTS W/NJX & ANGIO IMG S&I NH CATH PLMT L HRT & ARTS W/NJX & ANGIO IMG S&I Left heart cath / [place] [id number] [place] [address] [facility] [id number] [place] [address] Referral ID Status Reason Start Date Expiration Date Visits Re quested Visits Authorized [id number] 1 1 Reason Comments Pain Reason Onset Date Comments Med Refill 12/06/2023 Reason Comments Pain Reason Onset Date Comments Med Refill 01/11/2024 Reason Comments URI Care Teams (unrecognized sec tion and content) Team Status: Active Member Role Status Dates Judith Patel DO Primary Care Provider Active Team Status: Inactive Member Role Status Dates [facility] Attending Provider Active Judith Patel DO Primary Care Provider Active Team Status: Active Member Role Status Dates Kalie Kasper DO Primary Care Provider, Attending Provider Active Team Status: Inactive Member Role Status Dates Judith Patel DO Primary Care Provider Active [facility] [...] Status: Inactive Member Role Status Dates Judith Patel DO Primary Care Provider Active Start: April 07, 2023 End: April 07, 2023 Lili Burgos APRN Attending Provider Active Start: April 07, 2023 End: April 07, 2023 Team Status: Inactive Member Role Status Dates Judith Patel DO Primary Care Provider Active Start: April 21, 2023 End: April 21, 2023 Robin Dixon RN Attending Provider Active St art: April 21, 2023 End: April 21, 2023 Team Status: Active Member Role Status Dates Judith Patel DO Primary Care Provide r, Attending Provider Active Start: April 22, 2023 Team Status: Inactive Member Role Status Dates Judith Patel DO Primary Care Provider Active Start: May 11, 2023 End: May 11, 2023 Lili Burgos APRN Attending Provider Active Start: May 11, 2023 End: May 11, 2023 Team Status: Inactive Member Role Status Dates Shawn Webb Attending Provider Active Start: 2023 End: May 22, 2023 Clean Room Assembler Relationship Specialty Start Date End Date Pastora Kohler APRN - REGISTERED ART THERAPIST [address] [place] [address] PCP - General Nurse Practitioner [facility] 06/15/23 Team Status: Active Member Role Status Dates NON STAFF Primary Care Provider Active Team Status: Active Member Role Status Dates Julien Goldstein Attending Provider Active Start: 2023 Team Status: Inactive Member Role Status Dates Lili Burgos APRN Attending Provider Active Start: September 23, 2023 End: September 23, 2023 NON STAFF Primary Care Provider Active Start: September 23, 2023 End: September 23, 2023 Clean Room Assembler Relationship Specialty Start Date End Date Jennifer Cabrera MD [address] [facility] [place] [address] PCP - General Family Medicine 04/10/23 Pastora Kohler NP [address] [facility] [place] [address] PCP - [facility] 02/16/23 03/18/80 Pastora Kohler NP [address] [place] [address] Nurse Practitioner Family Medicine 04/10/23 Clean Room Assembler Relationship Specialty Start Date End Date Jennifer Cabrera MD [address] [place] [address] PCP - General Family Medicine 04/10/23 Pastora Kohler NP [address] [facility] [place] [place] [address] PCP - [facility] 02/16/23 03/18/80 Pastora Kohler NP [address] [place] [address] Nurse Practitioner Family Medicine 04/10/23 Clean Room Assembler Relationship Specialty Start Date End Date Jennifer Cabrera MD [address] [place] [address] PCP - General Family Medicine 04/10/23 Pastora Kohler NP [address] [place] [address] PCP - [facility] 02/16/23 03/18/80 Pastora Kohler NP [address] [place] [facility] [place] [address] Nurse Practitioner Family Medicine 04/10/23 Clean Room Assembler Relationship Specialty Start Date End Date Jennifer Cabrera MD [address] [place] [address] PCP - General Family Medicine 04/10/23 Pastora Kohler NP [address] [facility] [place] [place] [address] PCP - [facility] 02/16/23 03/18/80 Pastora Kohler NP [address] [place] [address] Nurse Practitioner Family Medicine 04/10/23 Clean Room Assembler Relationship Specialty Start Date End Date Jennifer Cabrera MD [address] [place] [address] PCP - General Family Medicine 04/10/23 Pastora Kohler NP [address] [place] [address] PCP - [facility] 02/16/23 03/18/80 Pastora Kohler NP [address] [place] [address] Nurse Practitioner Family Medicine 04/10/23 Team Status: Active Member Role Status Dates NON STAFF Primary Care Provider Active Start: December 24, 2023 Lili Burgos APRN Attending Provider Active Start: December 24, 2023 Team Status: Inactive Member Role Status Dates NON STAFF Primary Care Provider Active Start: December 30, 2023 End: December 30, 2023 Lili Burgos APRN Attending Provider Active Start: December 30, 2023 End: December 30, 2023 Clean Room Assembler Relationship Specialty Start Date End Date Jennifer Cabrera MD [address] [place] [address] PCP - General Family Medicine 04/10/23 Pastora Kohler MOLDING SUPERVISOR [address] [place] [address] PCP - [facility] 02/16/23 03/18/80 Pastora Kohler MOLDING SUPERVISOR [address] [place] [address] Nurse Practitioner Family Medicine 04/10/23 Clean Room Assembler Relationship Specialty Start Date End Date Jennifer Cabrera MD [address] [facility] [place] [address] PCP - General Family Medicine 04/10/23 Pastora Kohler NP [address] [facility] [place] [id number] PCP - [facility] 02/16/23 03/18/80 Pastora Kohler NP [address] [facility] [place] [id number] Nurse Practitioner Family Medicine 04/10/23 Goals (unrecognized section and content) Goals may be documented in a n alternate section Scheduled Active and Recently Administ ered Medications (unrecognized section and content) Medication Order 06/28/2023 06/29/2023 06/30/2023 sodium chloride flush 0.9 % injection 5-40 mL 5-40 mL, IntraVENous, EVERY 12 HOURS SCHEDULED (2 times per day), First dose on Thu06/30/23 at 2100, Until Discontinued, For Line Patency: Peripheral IV = 5 mL; Midline or Central Line = 10 mL/lumen. If following IV push medication, administer flush at same rate as the IV push. Flush volume is determined by type of infusion therapy being given. For non-viscous solutions use: Peripheral IV = 5 mL Midline or Central Line = 10 mL/lumen For viscous solutions (i.e. blood components, parenteral nutrition, contrast media, or after obtaining blood sample) use: Peripheral IV = 10 mL Midline or Central Line = 20 mL/lumen, Recovery(Cath) 2100 (Due) Continuous Medication Order 06/28/2023 06/29/2023 06/30/2023 0.9 % sodium chloride infusion IntraVENous, at 75 mL/hr, CONTINUOUS, Starting on Thu06/30/23 at 1115, Pre-Procedure(Cath) 1119 (New Bag - Prov ider: Gladys Frias RN) 0.9 % sodium chloride infusion IntraVENous, at 75 mL/hr, CONTINUOUS, Starting on Thu06/30/23 at 1300, For 66 hours, Recovery(Cath) 1239 (New Bag - Prov ider: Katja Armando, [id number])[phone] (Stopped - Provider: Tabatha Ledezma RN) PRN Medication Order 06/28/2023 06/29/2023 06/30/2023 0.9 % sodium chloride infusion IntraVENous, at 5-250 mL/hr, PRN, if patient receiving piggyback infusions and maintenance fluids are not ordered OR KVO fluids to protect IV site / prevent frequent line interruptions/ long duration, Starting on Thu06/30/23 at 1238, For piggyback infusion, administer at same rate as piggyback for a total of 25 mL. Enter 25 mL into dose field and piggyback rate into rate field of order. If piggyback is infusing at a rate less than 100 mL/hr, enter 25 mL into dose field and 100 mL/hr into rate field of order. For KVO fluids, enter rate of 20 mL/hr or less into rate field of order., Recovery(Cath) acetaminophen (TYLENOL) tablet 650 mg 650 mg, Oral, EVERY 4 HOURS PRN, Starting on Thu06/30/23 at 1238, Until Discontinued, Pain Mild (1-3), Fever, Fever >100.5 F (38 C), Maximum dose of acetaminophen is 4000 mg from all sources in 24 hours., Recovery(Cath) fentaNYL (SUBLIMAZE) injection (CANCELED) PRN, Starting on Thu06/30/23 at 1206, Until Thu06/30/23 at 1229, Intra-procedure(Cath) 1206 (Given - Provid er: CARLOS CHAPPELL) heparin (porcine) 4,000 Units, nitroGLYCERIN 300 mcg, verapamil (ISOPTIN) 2.5 mg 6.5 mL syringe (CANCELED) PRN, Starting on Thu06/30/23 at 1218, Intra-procedure(Cath) 1218 (Given - Provid er: Piotr Logan MD) iopamidol (ISOVUE-370) 76 % injection (CANCELED) PRN, Starting on Thu06/30/23 at 1227, Until Thu06/30/23 at 1229, Intra-procedure(Cath) 1227 (Given - Provid er: Piotr Logan MD) lidocaine 1 % injection (CANCELED) PRN, Starting on Thu06/30/23 at 1208, Until e 06/30/23 at 1229, Intra-procedure(Cath) 1208 (Given - Provid er: Piotr Logan MD) midazolam (VERSED) injection (CANCELED) PRN, Starting on Thu06/30/23 at 1206, Until 06/30/23 at 1229, Intra-procedure(Cath) 1206 (Given - Provid er: CARLOS CHAPPELL) ondansetron (ZOFRAN) injection 4 mg 4 mg, IntraVENous, EVERY 6 HOURS PRN, Starting on Thu06/30/23 at 1238, Until Discontinued, Nausea, Recovery(Cath) sodium chloride flush 0.9 % injection 5-40 mL 5-40 mL, IntraVENous, PRN, Starting on Thu06/30/23 at 1238, Until Discontinued, Line Care, After every IV line use, For Line Patency: Peripheral IV = 5 mL; Midline or Central Line = 10 mL/lumen. If following IV push medication, administer flush at same rate as the IV push. Flush volume is determined by type of infusion therapy being given. For non-viscous solutions use: Peripheral IV = 5 mL Midline or Central Line = 10 mL/lumen For viscous solutions (i.e. blood components, parenteral nutrition, contrast media, or after obtaining blood sample) use: Peripheral IV = 10 mL Midline or Central Line = 20 mL/lumen, Recovery(Cath) FOR RECORDS PERTAINING TO PATIENTS WHO ARE [...] BE BASED ON THE PRIMARY CLINICAL RECORDS. [employer] provides no warranty or guarantee of the accuracy or completeness of information in this document.
== END 2024-01-27 10:03 | disposition home or self-care (01) ==
LOC: PM 10:03
PROVIDERS: Visit Provider Nurse Practitioner
DX: M96.1 Postlaminectomy syndrome, not elsewhere classified (principal); G57.93 Unspecified mononeuropathy of bilateral lower limbs; Z79.891 Long term (current) use of opiate analgesic; M62.838 Other muscle spasm; M25.561 Pain in right knee; M25.562 Pain in left knee; E66.9 Obesity, unspecified; M47.816 Spondylosis without myelopathy or radiculopathy, lumbar region; M48.062 Spinal stenosis, lumbar region with neurogenic claudication; M70.62 Trochanteric bursitis, left hip; M70.61 Trochanteric bursitis, right hip
CPT/HCPCS: G0463

== ENCOUNTER 2024-04-27 09:56 | Outpatient (OUT) | payer MEDICARE, SELFPAY ==
--- OUTSIDE RECORDS SUMMARY | 2024-04-27 10:11 | XMS_ITS | CCD ---
Author Organization [facility] Team Providers Care Nutter Up Name Role Phone QUE BLAKE Unavailable Unavailable GECHASEINGQUE Unavailable Unavailable SELF, REFERRED Unavailable Unavailable OLIVE, ROSALES Unavailable Unavailable [place] Unavailable Unavailable QUE BLAKE Unavailable Unavailable WIEPKING, LAUREN Unavailable Unavailable SELF, REFERRED Unavailable Unavailable JULIEN GARCÍA Unavailable Unavailable OLIVE, ROSALES Unavailable Unavailable QUE BLAKE Unavailable Unavailable QUE BLAKE Unavailable Unavailable QUE BLAKE Unavailable Unavailable OLIVE, ROSALES Unavailable Unavailable Clifford Munoz Jr. Unavailable [phone] Clifford Munoz Unavailable Lili Burgos Unavailable [facility] Unava ilable OLIVIER ., DR ADAM Liu Admitting Unavailable AGUAYO ., DR ADAM Liu Attending Unavailable HERNANDEZ ., ALICIA Consulting Unavailable LAKSHMIPATHY ., NARENDRANATH Consulting Daphne vailable [facility] Unava ilable LAKSHMIPATHY ., NARENDRANATH Admitting Daphne vailable LAKSHMIPATHY ., NARENDRALPHATH Attending Daphne vailable [facility] Unava ilable DR BLANE THOMAS Consulting Unavailable HERNANDEZ ., ALICIA Admitting Unavailable HERNANDEZ .ALICIA Attending Unavailable HERNANDEZ ., ALICIA Consulting Unavailable [facility] Unava ilable HALKER ., JASON Attending Unavailable HALKER ., JASON Consulting Unavailable LAKSHMIPATHY ., NARENDRANATH Admitting Daphne vailable [facility] Unava ilable HALKER ., JASON Admitting Unavailable HALKER ., JASON Attending Unavailable LAKSHMIPATHY ., NARENDRANATH Consulting Daphne vailable [facility] Unava ilable AGUAYO ., DR ADAM Liu Admitting Unavailable AGUAYO ., DR ADAM Liu Attending Unavailable HERNANDEZ ., ALICIA Consulting Unavailable [facility] Unava ilable HERNANDEZ ., ALICIA Consulting Unavailable AGUAYO ., DR ADAM Liu Attending Unavailable AGUAYO ., DR ADAM Liu Admitting Unavailable [facility] Unava ilable AGUAYO ., DR ADAM Liu Admitting Unavailable AGUAYO ., DR ADAM Liu Attending Unavailable HERNANDEZ ., ALICIA Consulting Unavailable [facility] Unava ilable LAKSHMIPATHY ., NARENDRANATH Admitting Daphne vailable LAKSHMIPATHY ., NARENDRANATH Attending Daphne vailable LAKSHMIPATHY ., NARENDRANATH Consulting Daphne vailable Martine Tobias Unavailable Rumschlag, DO Kalie Primary Care Provider Majo, DO Kalie Attending Provider DO Judith Newman G Primary Care Provider [facility] Tobias Attending Provider Rumcurtislanelly, DO Kalie Primary Care Provider Rummerry, DO Kalie Attending Provider [phone] Stoney Turner Unavailable Rumschlag, DO Kalie Primary Care Provider Rumschlag, DO Kalie Attending Provider Shawn Webb Attending Provider [phone] EDWIN MORENO Attending Unavailable AMANDA, JUDITH G Referring Unavailable AMANDA, JUDITH G Primary Care Unavailable Jose F ROCHA - Pastora OROZCO Primary Care P rovider PASTORA KOHLER Primary Care Unavailab LOPEZ Noe Referring Unavailable Jennifer Cabrera MD Primary Care Provider Jose F FARM SPECIALIST, Pastora Nunes Unavailable Jose F FARM SPECIALIST, Pastora Nunes Unavailable EDWIN MORENO Attending Unavailable EDWIN MORENO Referring Unavailable AMANDA, JUDITH G Primary Care Unavailable EDWIN MORENO Attending Unavailable EDWIN MORENO Referring Unavailable AMANDA, JUDITH G Primary Care Unavailable EDWIN MORENO Referring Unavailable AMANDA, JUDITH G Primary Care Unavailable AKANKSHA NICKERSON Attending Unavailable AMANDA, JUDITH G Referring Unavailable AMANDA, JUDITH G Primary Care Unavailable NISHI PRADHAN Attending Unavailable AMANDA, JUDITH G Referring Unavailable AMANDA, JUDITH G Primary Care Unavailable KRISHANAKANKSHA LOZANO Attending Unavailable AMANDA, JUDITH G Referring Unavailable AMANDA, JUDITH G Primary Care Unavailable KRISHAN, AKANKSHA Bloom Attending Unavailable AMADNA, JUDITH G Referring Unavailable AMANDA, JUDITH G Primary Care Unavailable KRISHAN, AKANKSHA Bloom Attending Unavailable AMANDA, JUDITH G Referring Unavailable AMANDA, JUDITH G Primary Care Unavailable Lauren Torres PA-C Attending Provider [phone] Jose F TERRELL-C, Pastora Primary Care Provider Shawn Webb Admitting Unavailable Shawn Webb Attending Unavailable Kohler, Pastora Primary Care Unavailable Lauren Torres Admitting Unavailable Lauren Torres Attending Unavailable Lili Burgos Admitting Unavailable Lili Burgos Attending Unavailable Amanda, Judith G Primary Care Unavailable Amanda DO, Judith G Primary Care Provider LOPEZ JAMES Attending Unavailable ERIKA SAYEEMA N Referring Unavailable KOHLER, PASTORA A Primary Care Unavailab le LOGAN, HEMINDERMEET Referring Unavailable LOGAN, HEMINDERMEET Attending Unavailable KOHLER, PASTORA A Primary Care Unavailab le LOGAN, HEMINDERMEET Referring Unavailable LOGAN, HEMINDERMEET Attending Unavailable KOHLER, PASTORA A Primary Care Unavailab le KOHLER, PASTORA A Primary Care Unavailab le DAMEL SAYEEMA N Admitting Unavailable DAUDI, SAYEEMA N Attending Unavailable LOGAN, HEMINDERMEET Admitting Unavailable LOGAN, HEMINDERMEET Attending Unavailable KOHLER, PASTORA A Primary Care Unavailab le LOGAN, HEMINDERMEET Attending Unavailable LOGAN, HEMINDERMEET Referring Unavailable KOHLER, PASTORA A Primary Care Unavailab le KOHLER, PASTORA Nunes Primary Care Unavailab le DAUDI, SAYRAFA Rayo Referring Unavailable WIL, PIOTR Attending Unavailable WIL, PIOTR Referring Unavailable KOHLER, PASTORA Nunes Primary Care Unavailab le KOHLER, PASTORA Nunes Primary Care Unavailab le DAUDI, SAYEELUISA Rayo Referring Unavailable DAUDI, LOPEZ Rayo Referring Unavailable KOHLER, PASTORA Nunes Primary Care Unavailab dusty RODRIGUEZ JR., RICA Nair Attending Unavaila moi LEÓN, SEAN Bloom Attending Unavailable JR. ARIEL, RICA Nair Referring Unavaila ble HADOLLY, ALEXANDRA Nunes Attending Unavailab le JO, ALEXANDRA Nunes Referring Unavailab le KOHLER, PASTORA Nunes Attending Unavailab le SHAWN WEBB Attending Unavailable DEBORAH, Attending Unavailable JERI MAGAÑA Attending Unavailable JENNIFER CABRERA Referring Unavailable LAUREN TORRES Attending Unavailable WALLY, LAUREN Bloom Referring Unavailable TORRES, LAUREN Bloom Referring Unavailable TORRES, LAUREN Bloom Attending Unavailable TORRES, LAUREN Bloom Attending Unavailable TORRES, LAUREN Bloom Referring Unavailable KOHLER, PASTORA Nunes Attending Unavailab le WALLY, LAUREN Bloom Attending Unavailable HACKMIRZA, ALEXANDRA Nunes Attending Unavailab le HACKMIRZA, ALEXANDRA Nunes Attending Unavailab le Medications Current Medications Medication [...] needed for Pain. 0 01/07/2023 Active Start: 01-07-2023 oxyCODONE-acet aminophen (PERCOCET) 7.5-325 mg per tablet TAKE 1 TABLET BY MOUTH TWICE DAILY TO THREE TIMES DAILY NEEDED FOR PAIN 01/07/2023 Active Start: 12-10-2022 take 1 tablet [...] January 03, 2021 October 30, 2022 8:55am [id number] actuat albuterol 0.09 mg/actuat metered dose inhaler (20 sources) beta2-Adrenergic Agonist Start: 01-19-2024 End: 01-18-2025 take 2 puff(s) by inhalation every four hours for wheezing albuterol HFA 90 mcg/act inhaler Indications: Wheezing Inhale 2 puffs every 4 (four) hours if needed for wheezing 18 g 01/19/2024 01/18/2025 Active ALPRAZolam 0.5 mg oral tablet (20 sources) Benzodiazepine ALPRAZolam (Xanax) 0.5 MG tablet daily as needed Active ALPRAZOLAM ORAL Take by mouth. Active amoxicillin 875 mg / clavulanate 125 mg oral tablet (7 sources) Penicillin-class Antibacterial Start: 04-12-2024 End: 04-19-2024 take 1 tablet by mouth in the morning amoxicillin-clavulanate (Augmentin) 875-125 MG tablet Indications: Acute non-recurrent pansinusitis Take 1 tablet (875 mg) by mouth in the morning and 1 tablet (875 mg) before bedtime. Do all this for 7 days. 14 tablet 04/12/2024 04/19/2024 Active Start: 01-19-2024 End: 01-26-2024 take 1 tablet by mouth in the morning amoxicillin-clavulanate (Augmentin) 875-125 MG tablet Indications: Bronchitis Take 1 tablet (875 mg) by mouth in the morning and 1 tablet (875 mg) before bedtime. Do all this for 7 days. 14 tablet 01/19/2024 01/26/2024 Active ARIPiprazole 15 mg oral tablet (20 sources) Atypical Antipsychotic Start: 01-28-2023 take 1 tablet by mouth once daily [...] (20 sources) HMG-CoA Reductase Inhibitor Start: 08-04-2019 End: 2024 take 1 tablet by mouth once daily atorvastatin (Lipitor) 40 MG tablet Indications: Mixed hyperlipidemia (CMS/HCC) TAKE 1 TABLET BY MOUTH EVERY DAY 90 tablet 1 2024 Active benzonatate 100 mg oral capsule (6 sources) Non-narcotic Antitussive Start: 01-19-2024 End: 01-26-2024 take 1 capsule by mouth three times daily as needed for cough benzonatate (Tessalon Perles) 100 MG capsule Indications: Bronchitis Take 1 capsule (100 mg) by mouth 3 (three) times a day as needed for cough for up to 7 days Do not crush or chew. 20 capsule 01/19/2024 01/26/2024 Active Start: 02-19-2022 End: 06-03-2023 take 1 capsule by mouth three times daily as needed for cough benzonatate (TESSALON PERLES) 100 mg capsule Take 1 capsule (100 mg total) by mouth 3 (three) times a day as needed for cough. 21 capsule 02/19/2022 06/03/2023 Discontinued 24 hr buPROPion hydrochloride 300 mg extended release oral tablet (20 sources) Aminoketone Start: 09-23-2022 take 1 tablet by mouth every twenty-four hours in the morning buPROPion XL (WELLBUTRIN XL) 300 mg 24 hr tablet Indications: Severe episode of recurrent major depressive disorder, without psychotic features (CMS-HCC) Take 1 tablet (300 mg total) by mouth in the morning. 90 tablet 3 09/23/2022 Active Start: 12-17-2020 take 1 tablet by mickey once daily Bupropion Hcl 300 mg tablet extended release 24 hr Active 300 MG PO Daily December 16, 2020 11:00pm cephalexin 500 mg oral capsule (8 sources) Cephalosporin Antibacterial Start: 02-29-2024 End: 03-05-2024 cephalexin (Keflex) 500 MG capsule Indications: Left leg cellulitis Take 1 capsule (500 mg) by mouth in the morning and 1 capsule (500 mg) at noon and 1 capsule (500 mg) in the evening and 1 capsule (500 mg) before bedtime. Do all this for 5 days. 20 capsule 02/29/2024 03/05/2024 Active End: 06-30-2023 cephALEXin (KEFLEX) 500 MG c apsule cholecalciferol 0.05 mg oral tablet (20 sources) Vitamin D Start: 04-06-2023 take 1 tablet by mouth once daily Cholecalciferol (Vitamin D3) 50 mcg (2,000 unit) tablet Active 100 MCG PO Daily April 06, 2023 12:00am Start: 08-01-2022 Start: 08-01-2022 take [address] [facility] every week Start: 08-01-2022 take [address] [facility] every week Cholecalciferol 1.25 MG (71415 UT) 1 capsule Orally weekly for 56 days Then OtC 4000 u daily therafter Jul, Active take [address] [facility] every twenty-four hours Vitamin D3 50 MCG (2000 UT) 2 tablets Orally Once a day Not-Taking/PRN take [address] [facility] every week Cholecalciferol 100 MCG (4000 UT) 1 capsule Orally weekly for 56 days Then OtC 4000 u daily therafter Active take [address] [facility] every week Cholecalciferol 50 MCG (2000 UT) 1 capsule Orally weekly for 56 days Then OtC 4000 u daily therafter Active take [address] [facility] every week Cholecalciferol 1.25 MG (82765 UT) 1 capsule Orally weekly for 56 days Then OtC 4000 u daily therafter Active clotrimazole 10 mg/ml topica l cream (20 sources) Azole Antifungal Clotrimazole 1 % 1 application Externally Twice a day as needed Active Clotrimazole 1 % 1 application Externally Twice a day Active diazePAM 5 mg oral tablet (18 sources) Benzodiazepine Start: 03-02-2024 End: 03-12-2024 diazePAM (Valium) 5 MG tablet Indications: History of claustrophobia 1 tab 30-60 mins before procedure may repeat X1 if need for claustrophobia 2 tablet 03/02/2024 Active 24 hr empagliflozin 12.5 mg / metFORMIN hydrochloride 1000 mg extended release oral tablet (5 sources) Biguanide, Sodium-Glucose Cotransporter 2 Inhibitor Start: [...] 0 Active ergocalciferol 1.25 mg oral capsule (20 sources) Provitamin D2 Compound Start: 08-01-2022 take 1 capsule by mouth every week ergocalciferol (Vitamin D2) 1.25 MG (38365 UT) capsule TAKE 1 CAPSULE BY MOUTH WEEKLY FOR 56 DAYS 08/01/2022 Active ERGOCALCIFEROL, VITAMIN D2, ORAL (2 sources) ERGOCALCIFEROL, VITAMIN D2, ORAL Take by mouth. Active gabapentin 300 mg oral capsule (20 sources) Anti-epileptic Agent gabapentin (Neurontin) 300 MG capsule Active GABAPENTIN ORAL Take by mouth. Active hydroCHLOROthiazide 12.5 mg / lisinopril 20 mg oral tablet (2 sources) Thiazide Diuretic, Angiotensin Converting Enzyme Inhibitor lisinopril-hydroCHLO ROthiazide (PRINZIDE;ZESTORETIC) 20-12.5 MG per tablet End: 06-03-2023 take 2 tablets by mouth once daily lisinopril-hydroCHLOROthiazide (PRINZIDE,ZESTORETIC) 20-12.5 mg per tablet Take 2 tablets by mouth daily. 06/03/2023 Discontinued hydroCHLOROthiazide 12.5 mg / losartan potassium 50 mg oral tablet (20 sources) Thiazide Diuretic, Angiotensin 2 Receptor Karrie Start: 05-24-2023 End: 12-06-2023 take 1 tablet by mouth once daily losartan-hydroCHLOROthiazide (Hyzaar) 50-12.5 MG tablet Indications: Primary hypertension (CMS/HCC) Take 1 tablet by mouth Daily 90 tablet 1 12/07/2023 Active take 1 tablet by mickey th once in the morning losartan-hydroCHLOROthiazide (HYZAAR) 50 -12.5 mg per tablet Take 1 tablet by mouth in the morning. Active take 1 tablet by mickey th every twenty-four hours Losartan Potassium-HCTZ 50-12.5 MG 1 tab let Orally Once a day Active take 1 tablet by mickey th every twenty-four hours hydrOXYzine pamoate 25 mg oral capsule (20 sources) Antihistamine Start: 05-11-2023 take 1 tablet by mouth three times daily as needed Hydroxyzine Hcl 10 mg tablet Active 10 MG PO Three times daily as needed May 10, 2023 11:00pm Start: 04-22-2023 take 1 capsule by mo uth three times daily as needed hydrOXYzine pamoate [...] insulin aspart, human 100 unt/ml pen injector (10 sources) Insulin Analog Start: 04-07-2023 FIASP FLEXTOUC [...] hyperglycemia, with long-term current use of insulin ([facility]) Inject 48 Units under the skin at [...] mg into the skin daily 0 Active inject 52 mg by subc utaneous injection in the morning insulin degludec (TRESIBA FLEXTOUCH U-100 SUBQ) Inject 52 mg under the skin in the morning. Active Insulin Degludec (Tresiba Flextouch U-100) 100 unit/mL (3 mL) insulin pen (20 sources) Start: 12-30-2023 Insulin Deglud ec (Tresiba [...] each day at the same time. Active take 1 tablet by mickey th in the morning, then take 2 tablets by mouth in the morning, then take 1 tablet by mouth in the evening metFORMIN (GLUCOPHAGE) 500 mg tablet Take 1 tablet (500 mg total) by mouth in the morning. 2 TABS IN AM AND 1 TAB IN EVENING.. Active metoprolol tartrate 25 mg oral tablet [...] End: 01-11-2024 take 1 tablet by mouth in the morning metoprolol tartrate (Lopressor) 25 MG tablet Indications: Primary hypertension (CMS/HCC) Take 1 tablet (25 mg) by mouth in the morning and 1 tablet (25 mg) in the evening. Take with meals. 180 tablet 3 01/13/2024 Active mupirocin 0.02 mg/mg topical ointment (1 source) [...] by mouth nightly 0 03/26/2023 Active Start: 03-26-2023 take 3 capsules by m outh once daily nortriptyline (PAMELOR) 50 mg capsule Indications: Severe episode of recurrent major depressive disorder, without psychotic features (CMS-HCC) Take 3 capsules (150 mg total) by mouth nightly. 270 capsule 1 03/26/2023 Active Start: 12-17-2020 End: 05-11-2023 take 1 capsule by mouth once daily Nortriptyline 50 mg capsule Discontinued 100 MG PO Daily April 06, 2023 4:24pm May 11, 2023 10:50am Start: 12-17-2020 End: 05-11-2023 take 100 mg by mouth once daily Nortriptyline Disconti nued 100 MG PO Daily April 06, 2023 5:24pm May 11, 2023 11:50am take 1 capsule by mo [facility] every twenty-four hours Nortriptyline HCl 75 MG 1 capsule Orally Once a day Active nystatin 100 unt/mg topical powder (1 source) Polyene Antifungal Start: 06-15-2023 nystatin (MYCOSTATIN) [id number] UNIT/GM powder Indications: Kelsea albicans infection Apply 2 times daily to abdominal and breast folds 60 g 0 06/15/2023 Active omeprazole 20 mg delayed release oral capsule (20 sources) Proton Pump Inhibitor Start: 12-17-2020 End: 04-06-2023 take 1 capsule by mouth once daily at bedtime Omeprazole 20 mg capsule,delayed release(DR/EC) Active 20 MG PO Daily at bedtime April 06, 2023 4:23pm End: 06-03-2023 take 1 tablet by mouth once daily omeprazole 20 MG EC tablet Take 1 tablet by mouth daily 0 Active take 1 tablet by mickey th at bedtime PriLOSEC OTC 20 MG 1 tablet Orally bedtime for 30 day(s) Active take 1 tablet by mickey th twice daily PriLOSEC OTC 20 MG 1 tablet Orally [...] PO Twice daily April 06, 2023 12:00am 1 mg dose 1.5 ml semaglutide 1.34 mg/ml pen injector (2 sources) Start: 05-07-2020 OZEMPIC 1 mg/dose (2 mg/1.5 mL) pen injector 05/07/2020 Active Semaglutide (Ozempic) 2 mg/dose (8 mg/3 mL) pen injector (10 sources) Start: 05-11-2023 inject 2 mg by [...] (Ozempic, 2 MG/DOSE,) 8 MG/3ML solution pen-injector (20 sources) inject 2 mg by subcutaneous injection [...] tiZANidine (Zanaflex) 4 MG tablet 09/16/2022 Active take 1 tablet by mickey th every six hours as needed tiZANidine (ZANAFLEX) 4 mg tablet Take 1 tablet (4 mg total) by mouth every 6 (six) hours as needed for muscle spasms. Active topiramate 100 mg oral table t (1 source) topiramate (TOPA MAX) 100 MG [...] tablet by mickey th every six hours [place] Active take 1 tablet by mickey th twice daily as needed [place] 5-325 MG 1 tablet as needed Orally bid Active amLODIPine 10 mg oral tablet (20 sources) Dihydropyridine Calcium Channel Karrie Start: 12-17-2020 End: 04-06-2023 take 1 tablet by mouth once daily Amlodipine 10 mg tablet Discontinued 10 MG PO Daily December 16, 2020 11:00pm April 06, 2023 4:31pm Start: 08-04-2019 End: 06-03-2023 amLODIPine (NORVASC) 5 mg ta blet 08/04/2019 06/03/2023 Discontinued baclofen 10 mg oral tablet (20 sources) gamma-Aminobutyric Acid-ergic Agonist Start: 12-17-2020 End: 06-03-2023 take 1 tablet by mouth once daily [...] Twice a day for 30 day(s) Not-Taking/PRN benzocaine 6 mg / menthol 10 mg oral lozenge (1 source) Standardized Chemical Allergen Start: 02-19-2022 End: 06-03-2023 take 1 tablet by mouth every two hours as needed benzocaine-menthoL (CHLORASEPTIC SORE THROAT) 6-10 mg lozenge Dissolve 1 lozenge in the mouth every 2 (two) hours as needed for sore throat. 100 tablet 02/19/2022 06/03/2023 Discontinued 5 ml bupivacaine hydrochloride 5 mg/ml injection (4 sources) Amide Local Anesthetic Start: 12-29-2023 End: 12-29-2023 bupivacaine PF (Marcaine) 0.5 % injection 0.5 mL Start: 12-29-2023 End: 12-29-2023 0.5 mL, Once PRN Procedure, Starting on Thu12/29/23 at 1100, For 1 dose empagliflozin 25 mg oral tablet (20 sources) Sodium-Glucose Cotransporter 2 Inhibitor Start: 04-06-2023 take 25 mg by mouth once daily Empagliflozin Active 25 MG PO Daily April 06, 2023 12:00am Start: 08-01-2022 take 1 tablet by mickey th every twenty-four hours Start: 05-10-2020 End: 06-03-2023 take 1 tablet by mouth once daily Empagliflozin (Jardi ance) 10 mg tablet Discontinued 20 MG PO Daily December 16, 2020 11:00pm April 06, 2023 4:13pm fluocinonide 1 mg/ml topical cream (11 sources) Corticosteroid Start: 12-17-2020 End: 12-30-2023 Fluocinonide 0.1 % Cream Discontinued 1 APPLIC TOPICAL 2-4 TIMES PER DAY as needed for irritation December 16, 2020 11:00pm December 30, 2023 9:52am furosemide 20 mg oral tablet (20 sources) Loop Diuretic Start: 08-03-2019 End: 06-03-2023 furosemide (LASIX) 20 mg tablet 08/03/2019 06/03/2023 Discontinued glipiZIDE 10 mg oral tablet (1 source) Sulfonylurea Start: 12-30-2018 End: 06-03-2023 glipiZIDE (GLUCOTROL) 10 mg tablet 12/30/2018 06/03/2023 Discontinued guaiFENesin 20 mg/ml oral solution (1 source) Start: 02-19-2022 End: 06-03-2023 take 100-200 mg by mouth every four hours as needed for cough guaiFENesin (ROBITUSSIN) 100 mg/5 mL syrup Take 5-10 mL (100-200 mg total) by mouth every 4 (four) hours as needed for cough. 118 mL 02/19/2022 06/03/2023 Discontinued ibuprofen 800 mg oral tablet (3 sources) Nonsteroidal Anti-inflammatory Drug Start: 02-19-2022 End: 06-03-2023 take 1 tablet by mouth every eight hours as needed for pain ibuprofen (MOTRIN) 800 mg tablet Take 1 tablet (800 mg total) by mouth every 8 (eight) hours as needed for pain. 21 tablet 02/19/2022 06/03/2023 Discontinued take 1 tablet by mickey th three times daily as needed for pain and pain ibuprofen (ADVIL,MOTRIN) 600 mg tablet Indications: osteoarthritis , pain Take 1 tablet (600 mg total) by mouth 3 (three) times a day as needed for pain Indications: joint damage causing pain and loss of function, pain. Active 3 ml insulin glargine 100 unt/ml [...] Active propranolol hydrochloride 10 mg oral tablet (11 sources) beta-Adrenergic Karrie Start: 12-17-2020 End: 12-17-2020 Propranolol 10 mg tablet Discontinued MG TABLET December 16, 2020 11:00pm December 17, 2020 10:44am Start: 12-17-2020 End: 12-17-2020 Propranolol Discontinued MG TABLET December 17, 2020 12:00am December 17, 2020 11:44am Semaglutide (11 sources) Start: 12-17-2020 End: 04-06-2023 inject 1 [...] (acute kidney injury)] Episodic Administrative/socia l admission (13 sources) Dietary counseling and surveillance; 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: [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 status] Onset: 11-21-2020 Resolved: 10-28-2021 Episodic Anxiety disorders (20 sources) Anxiety disorder, unspecified; 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: [Generalized anxiety disorder] Onset: 09-08-2016 06-12-2023 Chronic Cancer of uterus (14 sources) Malignant neoplasm of endometrium; 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: [Malignant neoplasm of endometrium of corpus uteri ] Onset: 06-03-2023 06-12-2023 Chronic Chronic kidney disease (14 sources) Chronic kidney disease stage 2; 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: [Chronic kidney disease, stage 2 (mild)] Onset: 04-12-2024 04-12-2024 Chronic Chronic obstructive pulmonary disease and bronchiectasis (2 sources) Bronchitis; 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: [Bronchitis, not specified as acute or chronic] 01-19-2024 Episodic Diabetes mellitus with complications (20 sources) Hyperglycemia due to type 2 diabetes mellitus; 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: [Type 2 diabetes mellitus with hyperglycemia] Onset: 11-21-2020 Resolved: 10-28-2021 Chronic Comment on above: Download and evaluat ion of Meter. Diabetes mellitus without complication (9 sources) Type 2 diabetes mellitus without complications; 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: [Type 2 diabetes mellitus without complication] Onset: 09-08-2016 04-12-2024 Chronic Disorders of lipid metabolism (20 sources) Hyperlipidemia; 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: [Hyperlipidemia, unspecified] Onset: 11-21-2020 Resolved: 10-28-2021 Chronic Esophageal disorders (20 sources) Gastro-esophageal reflux disease without esophagitis; 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: [Gastroesophageal reflux disease without esophagitis] Onset: 09-08-2016 06-12-2023 Chronic Essential hypertension (20 sources) Essential (primary) hypertension; 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: [Benign essential hypertension] Onset: 02-23-2008 Resolved: 10-28-2021 Chronic Heart valve disorders (7 sources) Aortic valve stenosis; 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: [Nonrheumatic aortic (valve) stenosis] Onset: 07-28-2023 04-12-2024 Chronic Joint disorders and dislocations; trauma-related (20 sources) Derangement of left knee; 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: [Unspecified [...] Long-term current use of insulin; 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: [intermodal customer service (current) use of insulin] Onset: 04-12-2024 05-11-2023 Episodic Other aftercare (13 sources) alf (current) use of insulin; 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: [Long-term (current) use of insulin] Onset: 11-21-2020 Resolved: 10-28-2021 Episodic Other aftercare (1 source) 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 status; 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: [alf (current) use of insulin] 05-11-2023 Episodic Other connective tissue disease (1 source) Presence of right artificial knee joint; 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: [PRESENCE OF RIGHT ARTIFICIAL KNEE JOINT] Onset: 09-20-2016 Chronic Other connective tissue disease (11 sources) History of total knee arthroplasty; 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: [Presence of left artificial knee joint] 01-03-2021 Chronic Other connective tissue disease (20 sources) Artificial knee joint present; 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: [Presence of unspecified artificial knee joint] Onset: 11-03-2022 06-12-2023 Chronic Other connective tissue disease (1 source) Pain in left leg Episodic Other connective tissue disease (3 sources) Arthrodesis status Episodic Other connective tissue disease (9 sources) History of lumbar fusion; 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: [Arthrodesis status] Episodic Other connective tissue disease (13 sources) Bicipital tendinitis, right shoulder; 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: [Bicipital tenosynovitis] Onset: 03-23-2024 2024 Episodic Other connective tissue disease (2 sources) Non-traumatic partial tear of right rotator cuff; 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: [Incomplete rotator cuff tear or rupture of right shoulder, not specified as traumatic] 04-25-2024 Episodic Other inflammatory condition of skin (20 sources) Erythrodermic psoriasis; 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: [Other psoriasis] Onset: 11-03-2022 06-12-2023 Chronic Other lower respiratory disease (4 sources) Wheezing; 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: [Wheezing] 01-19-2024 Episodic Other lower respiratory disease (2 sources) Dyspnea; 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: [Shortness of breath] 04-12-2024 Episodic Other nervous system disorders (4 sources) Other specified mononeuropathies of right lower limb; 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: [OTH SPEC MONONEUROPATH RT LOW LIMB] Onset: 06-03-2022 Chronic Other nervous system disorders (2 sources) Other chronic pain; 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: [OTHER CHRONIC PAIN] Onset: 05-23-2022 Chronic Other nervous system disorders (6 sources) Chronic pain; 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: [Other chronic pain] Chronic Other nervous system disorders (20 sources) Carpal tunnel syndrome; 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: [Carpal tunnel syndrome, unspecified upper limb] Onset: 10-03-2011 06-12-2023 Chronic Other nervous system disorders (20 sources) Chronic pain syndrome; 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: [Chronic pain syndrome] Onset: 11-13-2016 06-12-2023 Chronic Other nervous system disorders (20 sources) Difficulty walking; 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: [Difficulty in walking, not elsewhere classified] Onset: 11-03-2022 06-12-2023 Chronic Other nervous system disorders (9 sources) Tremor; 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: [Tremor, unspecified] Episodic Other nervous system disorders (1 source) Tremor, unspecified Episodic Other non-traumatic joint disorders (2 sources) Arthritis of right acromioclavicular joint 12-29-2023 Chronic Other non-traumatic joint disorders (2 sources) Derangement of right shoulder joint; 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: [Other specific joint derangements of right shoulder, not elsewhere classified] 01-26-2024 Chronic Other non-traumatic joint disorders (1 source) Other specific joint derangements of right shoulder, not elsewhere classified; 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: [Other specific joint derangements of right shoulder, not elsewhere classified] Onset: 03-10-2024 Chronic Other non-traumatic joint disorders (1 source) Pain in right hip; 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: [PAIN IN RIGHT HIP] Onset: 06-26-2022 Episodic Other non-traumatic joint disorders (4 sources) Pain in left knee; 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: [Pain in joint, lower leg] 11-19-2023 Episodic Other non-traumatic joint disorders (8 sources) Pain in right shoulder; 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: [Pain in joint, shoulder region] 12-28-2023 Episodic Other non-traumatic joint disorders (9 sources) Disorder of shoulder; 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: [Other specified joint disorders, right shoulder] Onset: 03-23-2024 03-23-2024 Episodic Other nutritional; endocrine; and metabolic disorders [...] 40.0-44.9, adult; 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: [BMI 40.0-44.9, adult] Chronic Other nutritional; endocrine; and metabolic disorders (2 sources) Obesity caused by energy imbalance; 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: [Morbid (severe) obesity due to excess calories] 02-29-2024 Chronic Other skin disorders (2 sources) Eruption; 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: [Rash and other nonspecific skin eruption] 03-05-2024 Episodic Other upper respiratory infections (1 source) Acute pansinusitis; 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: [Acute pansinusitis, unspecified] 04-12-2024 Episodic Residual codes; unclassified (7 sources) Sleep apnea; 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: [Sleep apnea, unspecified] Onset: 07-28-2023 04-12-2024 Chronic Residual codes; unclassified (1 source) Asymptomatic menopausal state Episodic Screening or history of mental health and substance abuse (5 sources) Personal history of nicotine dependence; 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: [Encounter for screening for depression] Onset: 09-08-2016 Episodic Spondylosis; intervertebral disc disorders; other back problems (20 sources) Spondylosis without myelopathy or radiculopathy, lumbar region; 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: [Postlaminectomy syndrome, not elsewhere classified] Onset: 02-23-2008 Chronic Substance-related disorders (2 sources) Opioid dependence; 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: [Opioid dependence, uncomplicated] 03-05-2024 Chronic Unclassified (12 sources) Body mass index (BMI) 50-59.9 , adult; 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: [BODY MASS INDEX (BMI) 50-59.9 , ADULT] Onset: 09-08-2016 Resolved: 11-21-2020 Chronic Unclassified (1 source) alf (current) use of oral hypoglycemic drugs; 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] Onset: 09-08-2016 Unclassified (2 sources) Unknown / UNK(Unknown) Onset: 09-08-2016 Unclassified (1 source) Other specified depressive episodes; 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: [OTHER SPECIFIED DEPRESSIVE EPISODES] Onset: 09-08-2016 Unclassified (4 sources) LOW BACK PAIN, UNSPECIFIED; 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: [LOW BACK PAIN, UNSPECIFIED] Onset: 08-05-2021 Unclassified (1 source) New Patient Onset: 06-03-2023 Unclassified (2 sources) Biceps tendinitis, right 03-16-2024 Past or Other Problems Problem Classification Problem [...] Onset: 09-20-2016 Episodic Other connective tissue disease (20 sources) Muscle pain; 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: [Myalgia, unspecified site] Onset: 11-03-2022 06-12-2023 Episodic Other connective tissue disease (1 source) Disorder of rotator cuff; 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: [Unspecified disorder of synovium and tendon, unspecified shoulder] Onset: 02-23-2008 06-12-2023 Episodic Other nervous system disorders (20 sources) Paresthesia of hand ; 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: [Paresthesia of skin] Onset: 11-03-2022 06-12-2023 Episodic Other non-traumatic joint disorders (1 source) Pain in right knee; 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: [PAIN IN RIGHT KNEE] Onset: 09-20-2016 Episodic Other non-traumatic joint disorders (20 sources) Hip pain; 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: [Pain in unspecified hip] Onset: 01-08-2016 06-26-2023 Episodic Other non-traumatic joint disorders (20 sources) Shoulder joint pain; 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: [Pain in [...] 07-28-2023 Episodic Skin and subcutaneous tissue infections (20 sources) Local infection of the skin and [...] Test Name Value Interpretation Reference Range Facility XR CHEST 2 VIEWSon XR CHEST 2 VIEWS EXAM: XR CHEST 2 VIE WS Clinical History: Cough, shortness of breath Reference Exam: No comparison Findings: Subtle atherosclerosis of the aortic arch. The cardiopericardial silhouette is normal in appearance. The pulmonary vessels are not cephalized. There is no alveolar edema, pneumonia, or pneumothorax. Negative for pleural effusion. The skeleton is remarkable for postprocedural changes in the cervical spine. Thoracic spinal spondylosis and multilevel disc space height loss. Fusion in the upper lumbar region. Impression: Negative for specific acute cardiopulmonic pathology. Dictated on: 04/12/2024 9:40 AM This report has been electronically signed and approved by the interpreting Radiologist. Normal Not Available Magnetic resonance imaging r eportOrdered By: Carlos Manuel Armando on 03-10-2024 Study report [facility] Main [place] [id number] MRI Report Signed Patient: Lesli Clay R#: [id number] : 1960 Acct:[id number] Age/Sex: 63 / F ADM Date: 5 Loc: Room: Type: [facility] Attending Dr: Lauren Torres PA-C Copies to: Lauren Torres PA-C~ Ordering Provider: Lauren Torres PA-C Date of Service: 03/10/24 MR/MR shoulder RT wo con: M24.811 ([id number]) XR/XR pre/post mri xray: M24.811 MRI right Shoulder without contrast TECHNIQUE: Multiplanar T1 and T2-weighted imaging obtained without contrast. HISTORY: Chronic right shoulder pain. No injury COMPARISON: None BONE MARROW EDEMA: Subchondral bone marrow edema defects of the anterior and posterior portion of the humeral head. The likely degenerative. FRACTURE: None AC JOINT: Marginal spurring superiorly. SHOULDER ROOF LIGAMENTS: The coracoacromial and coracoclavicular ligaments are intact. ROTATOR CUFF: The rotator cuff is intact. Mild tendinosis. ROTATOR CUFF INTERVAL: Unremarkable BURSAL FLUID: No subacromial subdeltoid bursal fluid identified. GLENOID: Heterogeneous signal changes anterior portion of the labrum likely representing fraying/degenerative changes. No fluid signal intensity tear. BICEPS LABRAL COMPLEX: Intact LONG HEAD OF BICEPS TENDON: Large amount of fluid surrounds the tendon in the bicipital groove. May represent tenosynovitis. GLENOHUMERAL LIGAMENTS: The superior glenohumeral ligament is intact. The middle glenohumeral ligament is intact. The anterior and posterior glenohumeralligaments are intact. JOINT EFFUSION: Subcoracoid bursa loculated fluid. MUSCLES: Normal signal intensity of the muscles. NO SUBCUTANEOUS TISSUES: No subcutaneous abnormalities identified. MR/MR shoulder RT wo con IMPRESSION: Moderate degenerative change. Intact rotator cuff. Mild tendinosis. Findings suggesting tenosynovitis of long head of the biceps tendon. Acromioclavicular spurring. 2 views right shoulder pre-MRI assessment Acromioclavicular marginal spurring. Adequate glenohumeral joint. Adequate alignment. No acute bony findings. Cervical spine fixation hardware. IMPRESSION: Degenerative change. Impression dictated by: Carlos Manuel Armando M.D.03/10/2024 10:09 AM Dictation Location: [place] [address] Transcribed By: [facility] 03/10/24 1009 Dictated By: Carlos Manuel Armando DO 03/10/24 0959 Signed By: 03/10/24 1009 [facility] XR pre/post mri xrayon 03-10 XR pre/post mri xray [facility] [place] [address] MRI Report Signed Patient: Lesli Clay MR#: [id number] : 1960 Acct:[id number] Age/Sex: 63 / F ADM Date: 03/10/24 Loc: Room: Type: [facility] Attending Dr: Lauren Torres PA-C Copies to: Lauren Torres PA-C Ordering Provider: Lauren Torres PA-C Date of Service: 03/10/24 MR/MR shoulder RT wo con: M24.811 ([id number]) XR/XR pre/post mri xray: M24.811 MRI right Shoulder without contrast TECHNIQUE: Multiplanar T1 and T2-weighted imaging obtained without contrast. HISTORY: Chronic right shoulder pain. No injury COMPARISON: None BONE MARROW EDEMA: Subchondral bone marrow edema defects of the anterior and posterior portion of the humeral head. The likely degenerative. FRACTURE: None AC JOINT: Marginal spurring superiorly. SHOULDER ROOF LIGAMENTS: The coracoacromial and coracoclavicular ligaments are intact. ROTATOR CUFF: The rotator cuff is intact. Mild tendinosis. ROTATOR CUFF INTERVAL: Unremarkable BURSAL FLUID: No subacromial subdeltoid bursal fluid identified. GLENOID: Heterogeneous signal changes anterior portion of the labrum likely representing fraying/degenerative changes. No fluid signal intensity tear. BICEPS LABRAL COMPLEX: Intact LONG HEAD OF BICEPS TENDON: Large amount of fluid surrounds the tendon in the bicipital groove. May represent tenosynovitis. GLENOHUMERAL LIGAMENTS: The superior glenohumeral ligament is intact. The middle glenohumeral ligament is intact. The anterior and posterior glenohumeral ligaments are intact. JOINT EFFUSION: Subcoracoid bursa loculated fluid. MUSCLES: Normal signal intensity of the muscles. NO SUBCUTANEOUS TISSUES: No subcutaneous abnormalities identified. MR/MR shoulder RT wo con IMPRESSION: Moderate degenerative change. Intact rotator cuff. Mild tendinosis. Findings suggesting tenosynovitis of long head of the biceps tendon. Acromioclavicular spurring. 2 views right shoulder pre-MRI assessment Acromioclavicular marginal spurring. Adequate glenohumeral joint. Adequate alignment. No acute bony findings. Cervical spine fixation hardware. IMPRESSION: Degenerative change. Impression dictated by: Carlos Manuel Armando M.D.03/10/2024 10:09 AM Dictation Location: [facility]--23 Transcribed By: [facility] 03/10/24 1009 Dictated By: Carlos Manuel Armando DO 03/10/24 0959 Signed By: 03/10/24 1009 Normal [facility] No Panel Informationon 12-29 Bedside Glucose [address] [place] [address] No Panel Informationon 12-28 SERGIO Iglesias 12/29/2023 [...] and draped in the usual sterile fashion. [facility] XR Shoulder - right 2 Viewso n 12-29-2023 Imaging Result: AP and Scap Y right shoulder: No acute fracture, no dislocation Moderate AC joint arthrititis, with bone on bone formation and post surgical changes to articular surface Possible calcific tendinitis vs surgical changes Glenohumeral joint preserved with visualized lung manuel clear Impression: No acute bony process right shoulder with ac joint arthritis [facility] Radiology Study observation (narrative) [facility] - Chemistry and C hemistry - challengeon 12-24-2023 Cobalamin (Vitamin B12) [Mass/Vol] 225 pg/mL [facility] Albumin [Mass/Vol] 3.9 g/dL [facility] ALP [Catalytic activity/Vol] 91 U/L [facility] ALT [Catalytic activity/Vol] 23 U/L [facility] AST [Catalytic activity/Vol] 16 U/L [facility] Bilirubin [Mass/Vol] 0.3 mg/dL [facility] Calcium [Mass/Vol] 9.4 mg/dL [facility] Chloride [Moles/Vol] 98 mmol/L [facility] CO2 [Moles/Vol] 32 mmol/L [facility] Creatinine [Mass/Vol] 0.82 mg/dL [facility] Glucose [Mass/Vol] 166 mg/dL [facility] Potassium [Moles/Vol] 5.0 mmol/L [facility] Protein [Mass/Vol] 6.9 g/dL [facility] Sodium [Moles/Vol] 137 mmol/L [facility] Urea nitrogen [Mass/Vol] 17 mg/dL [facility] Cholesterol [Mass/Vol] 149 mg/dL [facility] Cholesterol in HDL [Mass/Vol] 61 mg/dL [facility] Cholesterol in LDL [Mass/Vol] 69 mg/dL [facility] Cholesterol.total /Cholesterol in HDL [Mass ratio] 2.4 {ratio} [facility] Triglyceride [Mass/Vol] 100 mg/dL [facility] Laboratory - Hematology and Cell countson 12-24-2023 HbA1c (Bld) [Mass fraction] 8.1 % [facility] No Panel Informationon 12-23 25-Hydroxy Vitamin D Total 28 ng/mL [facility] Estimated Average Glucose 186 [facility] Estimated GFR (Non- 80 mL/min [facility] BI MAMMOGRAM SCREENING TOMOS YNTHESIS [...] IS VERY IMPORTANT TO YOUR HEALTH. THE [employer] GUIDELINES RECOMMEND THAT WOMEN 40 [...] Tobramycin <=1 SUSCEPTIBLE Trimethoprim/Sulfa <=20 SUSCEPTIBLE Susceptible [facility] Comment on above: Performed By: #### U ####[facility] [address] [place] [address] Lab Director: Hermilo ThapaSheltering [facility] Hospital[address] [place] [address] Lab Director: Jonel Calvert MD Glucose,Whole Bloodon 2023 Glucose [Mass/Vol] 316 mg/dL High 65-105 [facility] Glucose [Mass/Vol] 225 mg/dL High 65-105 [facility] Glucose [Mass/Vol] 245 mg/dL High 65-105 [facility] Calcium, Ionicon 07-28-2023 Calcium [Moles/Vol] 1.26 mmol/L Normal 1.13-1.33 [facility] Comment on above: Performed By: #### N COOKING APPLIANCE REPAIR TECHNICIAN #### [employer] [address] [place] [address] [phone] [employer] Crewmember: Hermilo Thapa MD Glucose (POC)on 07-28-2023 Glucose [Mass/Vol] 227 mg/dL High 74-100 [facility] Glucose,Whole Bloodon 2023 Glucose [Mass/Vol] 247 mg/dL High 65-105 [facility] Glucose [Mass/Vol] 252 mg/dL High 65-105 [facility] Glucose [Mass/Vol] 280 mg/dL High 65-105 [facility] Glucose [Mass/Vol] 214 mg/dL High 65-105 [facility] Lactic Acidon 07-28-2023 Lactic Acid,Whole Bl 1.5 mmol/L Normal 0.7-2.1 [facility] Comment on above: Performed By: #### N COOKING APPLIANCE REPAIR TECHNICIAN #### [facility] [employer] [address] [place] [id number] [employer] Crewmember: Hermilo Thapa MD Non-Emergency Room Registered Nurse Cytologyon 4 Case No: [id number] Normal [facility] Comment on above: Performed By: #### N COOKING APPLIANCE REPAIR TECHNICIAN #### [employer] [address] [place] [address] [phone] [employer] Crewmember: Hermilo Thapa MD Specimen Description .PELVIC WASHINGS Normal [facility] Comment on above: Performed By: #### N COOKING APPLIANCE REPAIR TECHNICIAN #### [employer] [address] [place] [address] [phone] [employer]member: Hermilo Thapa MD Open Heart Panelon 4 Donald Test INFORMATION NOT PROVIDED Normal [facility] Comment on above: Performed By: #### N COOKING APPLIANCE REPAIR TECHNICIAN #### [address] [address] [employer] Crewmember: Hermilo Thapa MD Body Temp. 37.0 Normal [facility] Comment on above: Performed By: #### N COOKING APPLIANCE REPAIR TECHNICIAN #### [address] [address] [employer]member: Hermilo Thapa MD Carboxy Hgb 1.8 % Normal 0-5 [facility] Comment on above: Result Comment: Reference Range: Non-Smokers 0-2% Average Smoker 2-4% Heavy Smoker <10% Performed By: #### N COOKING APPLIANCE REPAIR TECHNICIAN #### [address] [address] [employer]member: Hermilo hTapa MD Chloride [Moles/Vol] 108 mmol/L Normal 98-110 [facility] Comment on above: Performed By: #### N COOKING APPLIANCE REPAIR TECHNICIAN #### [address] [address] [employer] Crewmember: Hermilo Thapa MD FIO2 40% Normal [facility] Comment on above: Performed By: #### N COOKING APPLIANCE REPAIR TECHNICIAN #### [address] [address] [employer]member: Hermilo Thapa MD Glucose [Mass/Vol] 210 mg/dL High 65-105 [facility] Comment on above: Performed By: #### N COOKING APPLIANCE REPAIR TECHNICIAN #### [address] [address] [employer]member: Hermilo Thapa MD HCO3 (Bld) [Moles/Vol] 20.2 mmol/L Low 22-27 [facility] Comment on above: Performed By: #### N COOKING APPLIANCE REPAIR TECHNICIAN #### [address] [address] [employer] Crewmember: Hermilo Thapa MD Hematocrit (Bld) [Volume fraction] 35.7 % Low 36.3-47.1 [facility] Comment on above: Performed By: #### N COOKING APPLIANCE REPAIR TECHNICIAN #### [address] [address] [employer]member: Hermilo Thapa MD Hemoglobin (Bld) [Mass/Vol] 11.6 g/dL Low 11.9-15.1 [facility] Comment on above: Performed By: #### N COOKING APPLIANCE REPAIR TECHNICIAN #### [address] [address] [employer]member: Hermilo Thapa MD Negative Base Excess 4.4 mmol/L High 0.0-2.0 [facility] Comment on above: Performed By: #### N COOKING APPLIANCE REPAIR TECHNICIAN #### [address] [address] [employer]member: Hermilo Thapa MD Oxygen (Bld) [Partial pressure] 106.0 mm[Hg] High 75-95 [facility] Comment on above: Performed By: #### N COOKING APPLIANCE REPAIR TECHNICIAN #### [address] [address] [employer] Crewmember: Hermilo Thapa MD Oxygen saturation in Blood 97.1 % Normal 94-100 [facility] Comment on above: Performed By: #### N COOKING APPLIANCE REPAIR TECHNICIAN #### [address] [address] [employer] Crewmember: Hermilo Thapa MD pCO2 37.7 mmHg Normal 32-45 [facility] Comment on above: Performed By: #### N COOKING APPLIANCE REPAIR TECHNICIAN #### [address] [address] [employer] Crewmember: Hermilo Thapa MD pH (Bld) 7.348 [pH] Low 7.350-7.450 [facility] Comment on above: Performed By: #### N COOKING APPLIANCE REPAIR TECHNICIAN #### [facility] [address] [place] [address] [employer] Crewmember: Hermilo Thapa MD Potassium [Moles/Vol] 4.5 mmol/L Normal 3.6-5.0 [facility] Comment on above: Performed By: #### N COOKING APPLIANCE REPAIR TECHNICIAN #### [facility] [address] [place] [address] [employer] Crewmember: Hermilo Thapa MD Sodium [Moles/Vol] 135 mmol/L Low 136-145 [facility] Comment on above: Performed By: #### N COOKING APPLIANCE REPAIR TECHNICIAN #### [facility] [address] [place] [address] [employer] Crewmember: Hermilo Thapa MD Potassium (POC)on 07-28-2023 Potassium [Moles/Vol] 4.8 mmol/L High 3.5-4.5 [facility] Surgical Pathology Reporton 07-28-2023 Surgical Pathology Report (NOTE) Path Number: [id number] -- Diagnosis -- A. CERVIX, UTERUS, BILATERAL [...] C: LEFT PELVIC LYMPH NODES Gross Description Karrie REID, UTERUS, CERVIX, BILATERAL FALLOPIAN TUBES AND BILATERAL [...] tissue reveals mcwilliams-red, spongy and vascularized tissue. Environmental Field Professional sections are submitted in 18c as follows: 1 anterior cervix 2 posterior cervix 3-4 posterior endomyometrium 5 traffic representative anterior endomyometrium with fat attached at serosa 6 traffic representative anterior fat attached to serosa 7-8 anterior cervix and lower uterine segment, longitudinal section 9-10 posterior cervix and lower uterine segment, longitudinal section 11-14 traffic representative left fallopian tube, ovary and adnexal soft tissue 15-18 traffic representative right fallopian tube, ovary and adnexal soft [...] in 2c (more content not included)... Normal [facility] Surgical Pathology Report (NOTE) Path Number: [id number] INTERPRETATION Pelvic washings: Satisfactory for evaluation. NEGATIVE FOR MALIGNANCY. Hypocellular fluid with few mononuclear inflammatory cells and strips of benign mesothelial cells. Electronically Signed Out John Paul Noble. 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 Gross Description PELVIC WASHING 30 ml. colorless fluid. MICROSCOPIC DESCRIPTION Microscopic examination performed. Non Emergency Room Registered Nurse Thin Prep x 1, Cell Block w/ HANH x 1 Processing Lab: [address] [id number] Interpretation performed at [facility] [address] [place] [address] NONGYNECOLOGICAL CYTOPATHOLOGY CONSULTATION Patient Name: LESLI CLAY [facility] Rec: [id number] [facility] ANATOMIC PATHOLOGY [address] [place] [phone] Normal [facility] CBC with Diffon 07-16-2023 Abs. Basophil 0.03 k/uL Normal 0.00-0.20 [facility] Comment on above: Performed By: #### C P, LIPR, MG, CDP, TSH, GLYHGB #### [address] [id number] [employer] Crewmember: Hermilo Thapa MD Abs.Imm.Granulocy te 0.03 k/uL Normal 0.00-0.30 [facility] Comment on above: Performed By: #### C P, LIPR, MG, CDP, TSH, GLYHGB #### [address] [id number] [employer] Crewmember: Hermilo Thapa MD Abs.Neutrophil (Seg) 6.45 k/uL Normal 1.50-8.10 [facility] Comment on above: Performed By: #### C P, LIPR, MG, CDP, TSH, GLYHGB #### [address] [address] [employer]member: Hermilo Thapa MD Basophils/100 WBC (Bld) 0 % Normal 0-2 [facility] Comment on above: Performed By: #### C P, LIPR, MG, CDP, TSH, GLYHGB #### [address] [id number] [employer]member: Hermilo Thapa MD Eosinophils (Bld) [#/Vol] 0.15 10*3/uL Normal 0.00-0.44 [facility] Comment on above: Performed By: #### C P, LIPR, MG, CDP, TSH, GLYHGB #### [address] [address] [employer]member: Hermilo Thapa MD Eosinophils/100 WBC (Bld) 2 % Normal 1-4 [facility] Comment on above: Performed By: #### C P, LIPR, MG, CDP, TSH, GLYHGB #### [place] [address] [employer]member: Hermilo Thapa MD Erythrocyte distribution width (RBC) [Ratio] 14.7 % High 11.8-14.4 [facility] Comment on above: Performed By: #### C P, LIPR, MG, CDP, TSH, GLYHGB #### [place] [address] [employer]member: Hermilo Thapa MD Hematocrit (Bld) [Volume fraction] 37.3 % Normal 36.3-47.1 [facility] Comment on above: Performed By: #### C P, LIPR, MG, CDP, TSH, GLYHGB #### [place] [address] [employer]member: Hermilo Thapa MD Hemoglobin (Bld) [Mass/Vol] 11.7 g/dL Low 11.9-15.1 [facility] Comment on above: Performed By: #### C P, LIPR, MG, CDP, TSH, GLYHGB #### [address] [address] [employer]member: Hermilo Thapa MD Immature granulocytes/100 WBC (Bld) 0 % Normal 0 [facility] Comment on above: Performed By: #### C P, LIPR, MG, CDP, TSH, GLYHGB #### [address] [address] [employer]member: Hermilo Thapa MD Lymphocytes (Bld) [#/Vol] 2.59 10*3/uL Normal 1.10-3.70 [facility] Comment on above: Performed By: #### C P, LIPR, MG, CDP, TSH, GLYHGB #### [address] [address] [employer]: Hermilo Thapa MD Lymphocytes/100 WBC (Bld) 26 % Normal 24-43 [facility] Comment on above: Performed By: #### C P, LIPR, MG, CDP, TSH, GLYHGB #### [place] [address] [employer]: Hermilo Thapa MD MCH (RBC) [Entitic mass] 27.6 pg Normal 25.2-33.5 [facility] Comment on above: Performed By: #### C P, LIPR, MG, CDP, TSH, GLYHGB #### [address] [address] [employer]: Hermilo Thapa MD MCHC (RBC) [Mass/Vol] 31.4 g/dL Normal 28.4-34.8 [facility] Comment on above: Performed By: #### C P, LIPR, MG, CDP, TSH, GLYHGB #### [place] [address] [employer]: Hermilo Thapa MD MCV (RBC) [Entitic vol] 88.0 fL Normal 82.6-102.9 [facility] Comment on above: Performed By: #### C P, LIPR, MG, CDP, TSH, GLYHGB #### [address] [address] [employer]: Hermilo Thapa MD Monocytes (Bld) [#/Vol] 0.59 10*3/uL Normal 0.10-1.20 [facility] Comment on above: Performed By: #### C P, LIPR, MG, CDP, TSH, GLYHGB #### [address] [address] [employer]: Hermilo Thapa MD Monocytes/100 WBC (Bld) 6 % Normal 3-12 [facility] Comment on above: Performed By: #### C P, LIPR, MG, CDP, TSH, GLYHGB #### [address] [address] [employer]: Hermilo Thapa MD Neutrophil (Seg) 66 % High 36-65 [facility] Comment on above: Performed By: #### C P, LIPR, MG, CDP, TSH, GLYHGB #### [address] [address] [employer]: Hermilo Thapa MD NRBC Automated 0.0 per 100 WBC Normal 0.0 [facility] Comment on above: Performed By: #### C P, LIPR, MG, CDP, TSH, GLYHGB #### [address] [address] [employer]: Hermilo Thapa MD Platelet mean volume (Bld) [Entitic vol] 10.2 fL Normal 8.1-13.5 [facility] Comment on above: Performed By: #### C P, LIPR, MG, CDP, TSH, GLYHGB #### [address] [address] [employer]: Hermilo Thapa MD Platelets (Bld) [#/Vol] 325 10*3/uL Normal 138-453 [facility] Comment on above: Performed By: #### C P, LIPR, MG, CDP, TSH, GLYHGB #### [address] [address] [employer]: Hermilo Thapa MD RBC (Bld) [#/Vol] 4.24 10*6/uL Normal 3.95-5.11 [facility] Comment on above: Performed By: #### C P, LIPR, MG, CDP, TSH, GLYHGB #### [facility] [employer] [address] [place] [address] [employer]: Hermilo Thapa MD RBC morphology finding Nom (Bld) ANISOCYTOSIS PRESENT Normal [facility] Comment on above: Performed By: #### C P, LIPR, MG, CDP, TSH, GLYHGB #### [facility] [employer] [address] [place] [address] [employer]: Hermilo Thapa MD WBC (Bld) [#/Vol] 9.8 10*3/uL Normal 3.5-11.3 [facility] Comment on above: Performed By: #### C P, LIPR, MG, CDP, TSH, GLYHGB #### [facility] [employer] [address] [place] [address] [employer]: Hermilo Thapa MD Comp Metabolic Profon 2023 Albumin [Mass/Vol] 4.4 g/dL Normal 3.5-5.2 [facility] Comment on above: Performed By: #### C P, LIPR, MG, CDP, TSH, GLYHGB #### [facility] [address] [place] [address] [employer]: Hermilo Thapa MD Albumin/Glob Ratio 1.0 Normal 1.0-2.5 [facility] Comment on above: Performed By: #### C P, LIPR, MG, CDP, TSH, GLYHGB #### [facility] [address] [place] [address] [employer]: Hermilo Thapa MD Alkaline Phos 103 U/L Normal 35-104 [facility] Comment on above: Performed By: #### C P, LIPR, MG, CDP, TSH, GLYHGB #### [address] [address] [employer]: Hermilo Thapa MD ALT [Catalytic activity/Vol] 15 U/L Normal 10-35 [facility] Comment on above: Performed By: #### C P, LIPR, MG, CDP, TSH, GLYHGB #### [address] [address] [employer]: Hermilo Thapa MD Anion gap [Moles/Vol] 13 mmol/L Normal 9-16 [facility] Comment on above: Performed By: #### C P, LIPR, MG, CDP, TSH, GLYHGB #### [address] [address] [employer]: Hermilo Thapa MD AST [Catalytic activity/Vol] 18 U/L Normal 10-35 [facility] Comment on above: Performed By: #### C P, LIPR, MG, CDP, TSH, GLYHGB #### [address] [address] [employer]: Hermilo Thapa MD Bilirubin [Mass/Vol] 0.3 mg/dL Normal 0.00-1.20 [facility] Comment on above: Performed By: #### C P, LIPR, MG, CDP, TSH, GLYHGB #### [address] [address] [employer]: Hermilo Thapa MD Calcium [Mass/Vol] 9.9 mg/dL Normal 8.6-10.4 [facility] Comment on above: Performed By: #### C P, LIPR, MG, CDP, TSH, GLYHGB #### [address] [address] [employer]: Hermilo Thapa MD Chloride [Moles/Vol] 103 mmol/L Normal 98-107 [facility] Comment on above: Performed By: #### C P, LIPR, MG, CDP, TSH, GLYHGB #### [facility] [employer] [address] [place] [address] [employer]: Hermilo Thapa MD CO2 [Moles/Vol] 23 mmol/L Normal 20-31 [facility] Comment on above: Performed By: #### C P, LIPR, MG, CDP, TSH, GLYHGB #### [facility] [employer] [address] [place] [address] [employer]: Hermilo Thapa MD Creatinine [Mass/Vol] 1.0 mg/dL High 0.50-0.90 [facility] Comment on above: Performed By: #### C P, LIPR, MG, CDP, TSH, GLYHGB #### [address] [address] [employer]: Hermilo Thapa MD GFR/1.73 sq M.predicted among non-blacks MDRD (S/P/Bld) [Vol rate/Area] 64 mL/min/{1.73_m2} Normal >60 [facility] Comment on above: Result Comment: These results [...] P, LIPR, MG, CDP, TSH, GLYHGB #### [facility] [employer] [address] [place] [address] [employer]: Hermilo Thapa MD Glucose [Mass/Vol] 161 mg/dL High 74-99 [facility] Comment on above: Performed By: #### C P, LIPR, MG, CDP, TSH, GLYHGB #### [facility] [employer] [address] [place] [address] [employer]: Hermilo Thapa MD Potassium [Moles/Vol] 4.7 mmol/L Normal 3.7-5.3 [facility] Comment on above: Performed By: #### C P, LIPR, MG, CDP, TSH, GLYHGB #### [address] [address] [employer]: Hermilo Thapa MD Protein [Mass/Vol] 7.9 g/dL Normal 6.6-8.7 [facility] Comment on above: Performed By: #### C P, LIPR, MG, CDP, TSH, GLYHGB #### [address] [address] [employer]: Hermilo Thapa MD Sodium [Moles/Vol] 139 mmol/L Normal 136-145 [facility] Comment on above: Performed By: #### C P, LIPR, MG, CDP, TSH, GLYHGB #### [address] [address] [employer]: Hermilo Thapa MD Urea nitrogen [Mass/Vol] 21 mg/dL Normal 8-23 [facility] Comment on above: Performed By: #### C P, LIPR, MG, CDP, TSH, GLYHGB #### [address] [address] [employer]: Hermilo Thapa MD Hemoglobin A1Con 07-16-2023 Glucose [Mass/Vol] 206 mg/dL Normal [facility] Comment on above: Result Comment: The ADA and AACC recommend providing the estimated average glucose result to permit better patient understanding of their HBA1c result. Performed By: #### C P, LIPR, MG, CDP, TSH, GLYHGB #### [address] [address] [employer]: Hermilo Thapa MD HbA1c (Bld) [Mass fraction] 8.8 % High 4.0-6.0 [facility] Comment on above: Performed By: #### C P, LIPR, MG, CDP, TSH, GLYHGB #### [address] [address] [employer]: Hermilo Thapa MD Lipid Profileon 07-16-2023 Cholesterol [Mass/Vol] 117 mg/dL Normal 0-199 [facility] Comment on above: Result Comment: Cholesterol Guidelines: <200 Desirable 200-240 Borderline >240 Undesirable Performed By: #### C P, LIPR, MG, CDP, TSH, GLYHGB #### [address] [address] [employer]: Hermilo Thapa MD Cholesterol in HDL [Mass/Vol] 36 mg/dL Low >40 [facility] Comment on above: Result Comment: HDL Guidelines: <40 Undesirable 40-59 Borderline >59 Desirable Performed By: #### C P, LIPR, MG, CDP, TSH, GLYHGB #### [address] [address] [employer]: Hermilo Thapa MD Cholesterol in LDL [Mass/Vol] 60 mg/dL Normal 0-100 [facility] Comment on above: Result Comment: LDL Guidelines: <100 Desirable 100-129 Near to/above Desirable 130-159 Borderline >159 Undesirable Direct (measured) LDL and calculated LDL are not interchangeable tests. Performed By: #### C P, LIPR, MG, CDP, TSH, GLYHGB #### [facility] [employer] [address] [place] [address] [employer]: Hermilo Thapa MD Cholesterol in VLDL [Mass/Vol] 21 mg/dL Normal [facility] Comment on above: Performed By: #### C P, LIPR, MG, CDP, TSH, GLYHGB #### [facility] [employer] [address] [place] [address] [employer]: Hermilo Thapa MD Cholesterol.total /Cholesterol in HDL [Mass ratio] 3.0 {ratio} Normal [facility] Comment on above: Performed By: #### C P, LIPR, MG, CDP, TSH, GLYHGB #### [facility] [address] [place] [address] [employer]: Hermilo Thapa MD Triglyceride [Mass/Vol] 107 mg/dL Normal <150 [facility] Comment on above: Result Comment: Triglyceride Guidelines: <150 Desirable 150-199 Borderline 200-499 High >499 Very high Based on AHA Guidelines for fasting triglyceride, November 2011. Performed By: #### C P, LIPR, MG, CDP, TSH, GLYHGB #### [facility] [employer] [address] [place] [address] [employer]: Hermilo Thapa MD Magnesiumon 07-16-2023 Magnesium [Mass/Vol] 1.6 mg/dL Normal 1.6-2.4 [facility] Comment on above: Performed By: #### C P, LIPR, MG, CDP, TSH, GLYHGB #### [facility] [employer] [address] [place] [address] [employer]: Hermilo Thapa MD Thyroid Stim. Horm.on 2023 Thyroid Stim. Horm. 0.74 uIU/mL Normal 0.27-4.20 [facility] Comment on above: Performed By: #### C P, LIPR, MG, CDP, TSH, GLYHGB #### [facility] [address] [place] [address] [employer]: Hermilo Thapa MD Type + Screenon 07-16-2023 Type + Screen Sample Expiration 07/31/2023,2359 Arm Band Number BE [id number] ABO/Rh(D) O POSITIVE Antibody Screen NEGATIVE Normal [facility] Comment on above: Performed By: #### T YS ####[address] [address] Lab Director: Hermilo Thapa MD Hemoglobin A1Con 06-30-2023 Glucose [Mass/Vol] 177 mg/dL Normal [facility] Comment on above: Result Comment: The ADA and AACC recommend providing the estimated average glucose result to permit better patient understanding of their HBA1c result. Performed By: #### G LYHGB #### [address] [address] [employer]: Hermilo Thapa MD #### TSHX #### [facility] [address] [place], [place] [address] [employer]: Salvador [place] MD HbA1c (Bld) [Mass fraction] 7.8 % High 4.0-6.0 [facility] Comment on above: Performed By: #### G LYHGB #### [address] [address] [employer]: Hermilo Thapa MD #### TSHX #### [facility] [address] [place], [place] [id number] [employer]: Salvador [place] MD Lipid Profileon 06-30-2023 Cholesterol [Mass/Vol] 144 mg/dL Normal 0-199 [facility] Comment on above: Result Comment: Cholesterol Guidelines: <200 Desirable 200-240 Borderline >240 Undesirable Performed By: #### L IPR #### [address] [address] [employer]: Hermilo Thapa MD Cholesterol in HDL [Mass/Vol] 48 mg/dL Normal >40 [facility] Comment on above: Result Comment: HDL Guidelines: <40 Undesirable 40-59 Borderline >59 Desirable Performed By: #### L IPR #### [address] [address] [employer]: Hermilo Thapa MD Cholesterol in LDL [Mass/Vol] 73 mg/dL Normal 0-100 [facility] Comment on above: Result Comment: LDL Guidelines: <100 Desirable 100-129 Near to/above Desirable 130-159 Borderline >159 Undesirable Direct (measured) LDL and calculated LDL are not interchangeable tests. Performed By: #### L IPR #### [address] [place] [address] [employer]: Hermilo Thapa MD Cholesterol in VLDL [Mass/Vol] 23 mg/dL Normal [facility] Comment on above: Performed By: #### L IPR #### [address] [address] [employer]: Hermilo Thapa MD Cholesterol.total /Cholesterol in HDL [Mass ratio] 3.0 {ratio} Normal [facility] Comment on above: Performed By: #### L IPR #### [address] [address] [employer]: Hermilo Thapa MD Triglyceride [Mass/Vol] 115 mg/dL Normal <150 [facility] Comment on above: Result Comment: Triglyceride Guidelines: <150 Desirable 150-199 Borderline 200-499 High >499 Very high Based on AHA Guidelines for fasting triglyceride, November 2011. Performed By: #### L IPR #### [address] [address] [employer]: Hermilo Thapa MD Laboratory - Hematology and Cell countson 06-29-2023 HbA1c (Bld) [Mass fraction] 7.8 % [facility] TSH w/reflex to FT4on 2023 Thyroid Stim. Horm. 3.23 uIU/mL Normal 0.30-5.00 [facility] Comment on above: Performed By: #### G LYHGB #### [address] [address] [employer]: Hermilo Thapa MD #### TSHX #### [facility] [address] [place] [address] [employer]member: Salvador [place] MD CT ABDOMEN PELVIS W [...] Etta Jay MD 06/20/23 Final result Normal [facility] HPV DNA High Riskon 06-16-19 24 HPV Interp Normal [facility] Comment on above: Result Comment: This test [...] for other forensic purposes. Performed By: #### H [facility] ####[address] [place] [address] Lab Director: Hermilo Thapa MD HPV Type 16 Not detected Normal [facility] Comment on above: Performed By: #### H PVH ####[address] [place] [address] Lab Director: Hermilo Thapa MD HPV Type 18 Not detected Normal [facility] Comment on above: Performed By: #### H PVH ####[address] [address] Lab Director: Hermilo Thapa MD Other High Risk HPV Not detected Normal [facility] Comment on above: Performed By: #### H PVH ####[address] [address] Lab Director: Hermilo Thapa MD HPV Sample .THIN PREP Normal [facility] Comment on above: Performed By: #### H PVH ####[address] [address] Lab Director: Hermilo Thapa MD Source CERVICAL MATERIAL Normal [facility] Comment on above: Performed By: #### H PVH ####[address] [address] Lab Director: Hermilo Thapa MD Cytology Reporton 06-15-2023 Cytology report Cyto stain.thin prep Doc (Cvx/Vag) (NOTE) Path Number: [id number] DIAGNOSIS Imaged ThinPrep Pap - Cervical (1 [...] or for other forensic [place] [address] . Source of Specimen: A: Imaged ThinPrep Pap - Cervical (1 monolayer slide) HPV Reflex?.................. ....HPV Regardless Clinical History Postmenopausal Z12.4 Encounter for screening for malignant neoplasm of cervix Processing Lab: [address] [phone] Interpretation performed at [address] [phone] This Pap Test has been evaluated with [...] result. GYNECOLOGIC CYTOLOGY REPORT Patient Name: LESLI CLAYGhulam [facility] Rec: [id number] [facility] ANATOMIC PATHOLOGY [address] [place] [address]. [place] [id number] Normal [facility] CBC AND AUTO DIFFon 06-04-19 ABSOLUTE BASOPHIL 0.0 X10E9/L Normal 0.0-0.2 [facility] Comment on above: Performed By: #### C MP, CBCA #### [facility] ([id number]) [address], [address] [place] [address] ABSOLUTE NEUTROPHIL 6.1 X10E9/L Normal 1.5-6.6 [facility] Comment on above: Performed By: #### C MP, CBCA #### [facility] ([id number]) [address] [address] [place] [address] Basophils/100 WBC (Bld) 0.4 % Normal [facility] Comment on above: Performed By: #### C MP, CBCA #### [facility] ([id number]) [address], [address] [place] [address] Eosinophils (Bld) [#/Vol] 0.2 10*3/uL Normal 0.0-0.4 [facility] Comment on above: Performed By: #### C NATHAN, CBCA #### [facility] ([id number]) [address], [address] [place] [address] Eosinophils/100 WBC (Bld) 2.1 % Normal [facility] Comment on above: Performed By: #### C NATHAN, CBCA #### [facility] ([id number]) [address], [address] [place] [address] Erythrocyte distribution width (RBC) [Ratio] 16.0 % High 11.5-15.0 [facility] Comment on above: Performed By: #### C MP, CBCA #### [facility] ([id number]) [address] [address] [address] [place] [address] Hematocrit (Bld) [Volume fraction] 36.4 % Normal 35-47 [facility] Comment on above: Performed By: #### C MP, CBCA #### [facility] ([id number]) [address], [address] [place] [address] Hemoglobin (Bld) [Mass/Vol] 11.8 g/dL Normal 11.7-15.5 [facility] Comment on above: Performed By: #### C MP, CBCA #### [facility] ([id number]) [address], [address] [place] [address] Lymphocytes (Bld) [#/Vol] 2.1 10*3/uL Normal 1.0-3.5 [facility] Comment on above: Performed By: #### C NATHAN, CBCA #### [facility] ([id number]) [address], [address] [place] [address] Lymphocytes/100 WBC (Bld) 23.6 % Normal [facility] Comment on above: Performed By: #### C MP, CBCA #### [facility] ([id number]) [address], [address] [place] [address] MCH (RBC) [Entitic mass] 28.3 pg Normal 27-34 [facility] Comment on above: Performed By: #### C MP, CBCA #### [facility] ([id number]) [address] [facility] [address] [address] [place] [address] MCHC (RBC) [Mass/Vol] 32.5 g/dL Normal 32-36 [facility] Comment on above: Performed By: #### C MP, CBCA #### [facility] ([id number]) [address], [address] [place] [address] MCV (RBC) [Entitic vol] 87 fL Normal 80-100 [facility] Comment on above: Performed By: #### C MP, CBCA #### [facility] ([id number]) [address], [address] [place] [address] Monocytes (Bld) [#/Vol] 0.6 10*3/uL Normal 0-0.9 [facility] Comment on above: Performed By: #### C MP, CBCA #### [facility] ([id number]) [address], [address] [place] [address] Monocytes/100 WBC (Bld) 6.5 % Normal [facility] Comment on above: Performed By: #### C MP, CBCA #### [facility] ([id number]) [address], [address] [place] [address] Neutrophils/100 WBC (Bld) 67.4 % Normal [facility] Comment on above: Performed By: #### C MP, CBCA #### [facility] ([id number]) [address], [address] [place] [address] Platelet mean volume (Bld) [Entitic vol] 7.9 fL Normal 7-12 [facility] Comment on above: Performed By: #### C MP, CBCA #### [facility] ([id number]) [address] [place] [address] Platelets (Bld) [#/Vol] 294 10*3/uL Normal 150-450 [facility] Comment on above: Performed By: #### C MP, CBCA #### [facility] ([id number]) [address] [place] [address] RBC COUNT 4.19 X10E12/L Normal 3.80-5.20 [facility] Comment on above: Performed By: #### C MP, CBCA #### [facility] ([id number]) [address] [address] [place] [address] WBC (Bld) [#/Vol] 9.1 10*3/uL Normal 4.0-11.0 [facility] Comment on above: Performed By: #### C MP, CBCA #### [facility] ([id number]) [address], [address] [place] [address] COMPREHENSIVE METABOLIC PANE Gonzalo 06-04-2023 Albumin [Mass/Vol] 3.9 g/dL Normal 3.2-5.3 [facility] Comment on above: Performed By: #### C NATHAN CBCA #### [facility] ([id number]) [address], [address] [place] [address] ALP [Catalytic activity/Vol] 107 U/L Normal 39-130 [facility] Comment on above: Performed By: #### C NATHAN CBCA #### [facility] ([id number]) [address] [place] [address] ALT [Catalytic activity/Vol] 26 U/L Normal 0-31 [facility] Comment on above: Performed By: #### C NATHAN CBCA #### [facility] ([id number]) [address] [place] [address] Anion gap [Moles/Vol] 9 mmol/L Normal 5-15 [facility] Comment on above: Performed By: #### C NATHAN CBCA #### [facility] ([id number]) [address] [place] [address] AST [Catalytic activity/Vol] 18 U/L Normal 0-41 [facility] Comment on above: Performed By: #### C NATHAN CBCA #### [facility] ([id number]) [address] [place] [address] Bilirubin [Mass/Vol] 0.3 mg/dL Normal 0.3-1.2 [facility] Comment on above: Performed By: #### C NATHAN CBCA #### [facility] ([id number]) [address] [place] [address] Calcium [Mass/Vol] 9.3 mg/dL Normal 8.5-10.5 [facility] Comment on above: Performed By: #### C NATHAN, CBCA #### [facility] ([id number]) [address] [place] [address] Chloride [Moles/Vol] 97 mmol/L Low 98-109 [facility] Comment on above: Performed By: #### C NATHAN, CBCA #### [facility] ([id number]) [address] [place] [address] CO2 [Moles/Vol] 31 mmol/L Normal 22-32 [facility] Comment on above: Performed By: #### C NATHAN CBCA #### [facility] ([id number]) [address] [place] [address] Creatinine [Mass/Vol] 0.92 mg/dL Normal 0.40-1.00 [facility] Comment on above: Result Comment: METH OD TRACEABLE TO IDMS STANDARD Performed By: #### C NATHAN, CBCA #### [facility] ([id number]) [address], [address] [place] [address] GFR/1.73 sq M.predicted among non-blacks MDRD (S/P/Bld) [Vol rate/Area] 70 mL/min/{1.73_m2} Normal >59 [facility] Comment on above: Result Comment: Reported eGFR is based on the CKD-EPI 2020 equation that does not use a race coefficient. Performed By: #### C NATHAN, CBCA #### [facility] ([id number]) [address] [place] [address] Glucose [Mass/Vol] 170 mg/dL High 65-99 [facility] Comment on above: Performed By: #### C NATHAN, CBCA #### [facility] ([id number]) [address] [place] [address] Potassium [Moles/Vol] 4.1 mmol/L Normal 3.5-5.0 [facility] Comment on above: Performed By: #### C MP, CBCA #### [facility] ([id number]) [address] [place] [address] Protein [Mass/Vol] 7.3 g/dL Normal 6.0-8.0 [facility] Comment on above: Performed By: #### C MP, CBCA #### [facility] ([id number]) [address] [place] [address] Sodium [Moles/Vol] 137 mmol/L Normal 134-146 [facility] Comment on above: Performed By: #### C MP, CBCA #### [facility] ([id number]) [address] [place] [address] Urea nitrogen [Mass/Vol] 16 mg/dL Normal 5-27 [facility] Comment on above: Performed By: #### C MP, CBCA #### [facility] ([id number]) [address] [place] [address] XR CHEST 2 VWSon 06-04-2023 XR CHEST 2 VWS XR CHEST 2 VWS Chest 2 views History: Anesthesia clearance, preadmission testing Endometrial cancer ([facility]); Pre-op testing Comparison: 02/19/2022 Findings: Chest 2 views. Stable cardia mediastinal silhouette. No new focal opacity, effusion or pneumothorax. Degenerative changes of the thoracic spine. Impression: No evident acute cardiopulmonary process. Finalized by Sami Bahena MD on 06/04/2023 9:54 AM Normal [facility] SURGICAL PATHOLOGY REFERENCE LAB CONSULTon 05-29-2023 CASE REPORT Normal [facility] Comment on above: Order Comment: Speci men Type: FORMALIN-FIXED PARAFFIN-EMBEDDED TISSUE SPECIMEN Ordering Facility: [facility] Address: [address] [place] [phone] Result Comment: Surg ical Pathology Report Case: [id number] Authorizing Provider: Lukasz Neal MD Collected: 05/29/2023 12:39 PM Ordering Location: [facility] Received: 05/29/2023 12:38 PM [facility] Pathologist: Jeri Dickerson MD Specimen: Slide(s), 2 SLIDES ([id number]) Performed By: #### L [id number] #### [facility] CLIA [id number] [address] [place] [address] [place] CLINICAL HISTORY CONSULT REQUESTED Normal C [facility] Comment on above: Order Comment: Speci men Type: FORMALIN-FIXED PARAFFIN-EMBEDDED TISSUE SPECIMEN Ordering Facility: [facility] Address: [address] [place], [place] [phone] Performed By: #### L [id number] #### [facility] CLIA [id number] [address] [place] [address] [place] DIAGNOSIS COMMENT Thank you for sendin g [...] give me a call at . Normal [facility] Comment on above: Order Comment: Speci men Type: FORMALIN-FIXED PARAFFIN-EMBEDDED TISSUE SPECIMEN Ordering Facility: [facility] Address: [address] [place] [phone] Performed By: #### L [id number] #### [facility] CLIA [id number] [address] [place] [address] FINAL DIAGNOSIS Normal [facility] Comment on above: Order Comment: Speci men Type: FORMALIN-FIXED PARAFFIN-EMBEDDED TISSUE SPECIMEN Ordering Facility: [facility] Address: [address] [place] [phone] Result Comment: Revi ew of outside slides, dated 05/26/2023: Endometrium, curettage: -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 Performed By: #### L [id number] #### [facility] CLIA [id number] [address] [place] [address] FINAL PERFORMING LAB Normal [facility] Comment on above: Order Comment: Speci men Type: FORMALIN-FIXED PARAFFIN-EMBEDDED TISSUE SPECIMEN Ordering Facility: [facility] Address: [address] [place] [phone] Result Comment: Diag nostic interpretation performed at [place] [address] CLIA# [id number] Tip Tester: Josh Orellana M.D. Performed By: #### L [id number] #### [facility] CLIA [id number] [address] [place] [address] Gonzalo 05-22-2023 L Specimen: [id number] Received: 05/26/23 Status: AVANI Morillo Num: [id number] Spec Type: Surgical Subm Dr: Shawn Webb Tissues: A Endometrium - Curettings (EMC) Procedures: HE/2, Gross/Micro L4 Age/ Patient Sex Location Account Attending Physician Lesli Clay 63/F LABELL [id number] Shawn Webb SPEC NUM: [id number] RECD: 05/26/23 STATUS: AVANI MORILLO NUM: [id number] LESLIE: 05/22/[address]: Shawn Webb ENTERED: 05/26/23 [facility] DR: Yoanna,Lab SPEC TYPE: Surgical DEPT: PHOEBE MENDOZA ORDERED: HE/2, Gross/Micro L4 ORDERED: HE/2, Gross/Micro L4 Supplemental Report Addendum 1 Entered: 06/01/23-6 Supplemental findings of consultation report from [facility]: FINAL DIAGNOSIS: -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, FIGO grade 2; see comment Addendum Signed (signature on file) Bay Neal MD 06/01/23 1027 Pathological Diagnosis Endometrial curettings: -Severe complex atypical hyperplasia and the apparently markedly associated endometrioid adenocarcinoma of the non high-grade type in all fragments, including occasional punctate necrosis also identified in some fragments -Pending secondary consultation review to follow Specimen: [id number] Received: 05/26/23 Status: AVANI Morillo Num: [id number] Spec Type: Surgical Subm Dr: Shawn Webb Tissues: A Endometrium - Curettings (EMC) Procedures: Indigo ANDRADE/Garrett L4 Patient: Lesli Clay [id number] (Continued) Specimen: [id number] Received: 05/26/23 (Continued) Signed (signature on file) Bay Neal MD 05/27/23 2136 Specimen: [id number] Received: 05/26/23 Status: AVANI Morillo Num: [id number] Spec Type: Surgical Subm Dr: Shawn Webb Tissues: A Endometrium - Curettings (EMC) Procedures: HE/Evan, Gross/Micro L4 Patient: Lesli Clay [id number] (Continued) Specimen: [id number] Received: 05/26/23 (Continued) Gross Description In formalin labeled endometrial curettings is a 3.0 x 2.5 x 0.5 cm aggregate of mcwilliams soft tissue. Submitted entirely in A1 RG/CYC Clinical history: Pelvic pain, postmenopausal bleeding?path pending CPT Codes 65302 Specimen: [id number] Received: 05/26/23 Status: AVANI Morillo Num: [id number] Spec Type: Surgical Subm Dr: Shawn Webb Tissues: A Endometrium - Curettings (EMC) Procedures: NATHALY/Indigo Gordon/Garrett L4 Patient: Lesli Clay [id number] (Continued) Signed (signature on file) Bay Neal MD 05/27/231 [facility]3] Physician Group No Panel Informationon 05-10 Bedside Glucose 121 [facility] - Chemistry and C hemistry - challengeon 04-22-2023 Albumin [Mass/Vol] 4.0 g/dL [facility] ALP [Catalytic activity/Vol] 104 U/L [facility] ALT [Catalytic activity/Vol] 19 U/L [facility] AST [Catalytic activity/Vol] 17 U/L [facility] Bilirubin [Mass/Vol] 0.2 mg/dL [facility] Calcium [Mass/Vol] 9.8 mg/dL [facility] Chloride [Moles/Vol] 101 mmol/L [facility] CO2 [Moles/Vol] 28 mmol/L [facility] Creatinine [Mass/Vol] 0.75 mg/dL [facility] Glucose [Mass/Vol] 228 mg/dL [facility] Potassium [Moles/Vol] 5.0 mmol/L [facility] Protein [Mass/Vol] 6.8 g/dL [facility] Sodium [Moles/Vol] 137 mmol/L [facility] Urea nitrogen [Mass/Vol] 21 mg/dL [facility] Laboratory - Hematology and Cell countson 04-22-2023 HbA1c (Bld) [Mass fraction] 8.9 % [facility] No Panel Informationon 04-21 Estimated GFR (Non- 89 mL/min [facility] No Panel Informationon 04-07 Bedside Glucose 182 [facility] A1C HEMOGLOBINon 02-03-2023 HbA1c (Bld) [Mass fraction] 9.7 % [facility] Other Glucose - FINGER STICKon Glucose [Mass/Vol] 178 mg/dL [facility] Other HbA1c (Bld) [Mass fraction]o n 02-03-2023 A1C HEMOGLOBIN [place] [employer] Other Glucose - FINGER STICKon Glucose [Mass/Vol] 180 mg/dL [facility] Other A1C HEMOGLOBINon 10-03-2022 HbA1c (Bld) [Mass fraction] 8.3 % [facility] Other Glucose - FINGER STICKon Glucose [Mass/Vol] 211 mg/dL [facility] Other HbA1c (Bld) [Mass fraction]o n 10-03-2022 A1C HEMOGLOBIN [place] Other Creatinine (Bld) [Mass/Vol]O rdered By: Martine Tobias on 09-19-2022 Creatinine [Mass/Vol] 0.7 mg/dL 0.6-1.3 [facility] Comment on above: ER/ESD physician is notified/shown all ISTAT results.Critical values may be confirmed by laboratory testing ifdeemed necessary by ER attending doctor. A1C HEMOGLOBINon 06-06-2022 HbA1c (Bld) [Mass fraction] 8.0 % [facility] [employer] Other Glucose - FINGER STICKon Glucose [Mass/Vol] 156 mg/dL [facility] Other HbA1c (Bld) [Mass fraction]o n 06-06-2022 A1C HEMOGLOBIN [place] Other POINT OF CARE GLUCOSEon 05-17 Glucose [Mass/Vol] 185 mg/dL Critically high 74-106 [facility] Comment on above: Performed By: #### P OCGLUC #### [facility] [address] [place] [address] Dr. Keegan Neal A1C HEMOGLOBINon 03-06-2022 HbA1c (Bld) [Mass fraction] 7.8 % [place] [employer] Other CREATININEon 03-06-2022 Creatinine [Mass/Vol] 0.82 mg/dL Normal 0.55-1.02 [facility] Comment on above: Performed By: #### C EJ #### [facility] [address] [place] [address] [address] Keegan Neal EGFR-AF EMIRATI >60 Normal >=60 [facility] Comment on above: Performed By: #### C EJ #### [facility] [address] [place], [place] [address] Dr. Keegan Neal EGFR-NON AF EMIRATI >60 Normal >=60 [facility] Comment on above: Performed By: #### C EJ #### [facility] [address] [place], [place] [address] LSPINE WO W [...] by: BLANE THOMAS Date: 2022-03-06 11:22 Normal [facility] Glucose - FINGER STICKon Glucose [Mass/Vol] 200 mg/dL [employer] Other HbA1c (Bld) [Mass fraction]o n 03-06-2022 A1C HEMOGLOBIN [place] Other A1C HEMOGLOBINon 10-28-2021 HbA1c (Bld) [Mass fraction] 7.0 % [facility] Other Glucose - FINGER STICKon Glucose [Mass/Vol] 110 mg/dL [employer] Other HbA1c (Bld) [Mass fraction]o n 10-28-2021 A1C HEMOGLOBIN [place] Other A1C HEMOGLOBINon 07-04-2021 HbA1c (Bld) [Mass fraction] 6.6 % [employer] Other Glucose - FINGER STICKon Glucose [Mass/Vol] 110 mg/dL [employer] Other HbA1c (Bld) [Mass fraction]o n 07-04-2021 A1C HEMOGLOBIN [place] Other A1C HEMOGLOBINon 11-21-2020 HbA1c (Bld) [Mass fraction] 6.0 % [employer] Other Glucose - FINGER STICKon Glucose [Mass/Vol] 98 mg/dL [employer] Other HbA1c (Bld) [Mass fraction]o n 11-21-2020 A1C HEMOGLOBIN [place] Other Discharge Summaryon 09-26-19 Discharge Summary MR[facility] [id number] [facility] Name[facility] Lesli Clay Admitted: 09/08/2016 [...] 09/24/2016/02:52 P/Que Cano M.D.Date Trans: 09/25/2016 08:08 A/Nigel_JN:[id number] cc: Rosales Taylor M.D. [address] [facility] [address] [address] [facility] KNEE RIGHT 3 [facility] 7 KNEE RIGHT 3 [facility] [place] [address] P atient Name: LESLI CLAY : 1Sex: FAge: Race: WhiteMRN: [id number]. Location: 84Patient Status: Date: 09/25/2016 8:15:00 AMCompleted Date: 09/25/2016 08:22 AMRequesting Provider: QUE BLAKE Attending Provider: Report Copy To: Signs & Symptoms: Z96.651 Presence of right artificial knee joint O49Hgsveke: AthenaComments: , , , Ordering Provider - QUE BLAKE MD , Exam: KNEE RIGHT 3 VWSAccession #: [id number] ======KNEE RIGHT 3 VWS 09/25/2016 8:22 AM [...] changes. Electronically signed by:Mindy Tomas. Transcribed by: [email or web address], User Resident: Electronically Signed by: MINDY TOMAS @ 09/25/2016 04:44 PM Normal [facility] Comment on above: Order Comment: , , = ========= , Ordering Provider - QUE BLAKE MD , Consultationon 09-21-2016 Consultation MR#: [id number] Pt. Name: Lesli Clay Date of [...] September 23, 2016, with Dr. Blake. In [facility], she was placed in a hinged knee brace to prevent flexion of theknee. She was given renewal of Keflex. We prescribed [place] for pain controland we applied an Armando wrap for edema control.Reviewed By:Desmond Mena MD 09/22/2016 08:26 AElectronically Signed by:Martin Fonseca MD 09/25/2016 03:22 P ___Martin Fonseca MD I was not present but assume all responsibility for the exam. NOTBILLABLEDate Dict: 09/21/2016/10:51 A/Desmond Mena RMjessica Trans: 09/21/2016 11:52 A/mmoDN_JN:[id number] cc: Rosales Taylor M.D. [address] [facility] [address] Normal [facility] BASIC METABOLIC PANELon 08-0 Calcium 9.6 mg/dL Normal 8.6-10.3 [facility] Comment on above: Performed By: #### 0 0071 ####[facility] [place] [address], [facility] Chloride 99 mmol/L Normal 98-107 [facility] Comment on above: Performed By: #### 0 0071 ####[facility] [place] [address], [place] CO2 29 mmol/L Normal 21-31 [facility] Comment on above: Performed By: #### 0 0071 ####[facility] [place] [address], [place] Creatinine 0.91 mg/dL Normal 0.60-1.20 [facility] Comment on above: Performed By: #### 0 0071 ####[facility] [place] [address], [place] eGFR (black) mL/min/{1.73_m2} Normal >60 [facility] Comment on above: Performed By: #### 0 0071 ####[facility] [place] [address], [place] eGFR (non-black) mL/min/{1.73_m2} Normal >60 [facility] Comment on above: Performed By: #### 0 0071 ####[facility] [place] [address], [place] Glucose mass conc 151 mg/dL High 70-100 [facility] Comment on above: Performed By: #### 0 0071 ####[facility] Potassium molar conc 4.0 mmol/L Normal 3.5-5.1 [facility] Comment on above: Performed By: #### 0 0071 ####[facility] Sodium 137 mmol/L Normal 136-145 [facility] Comment on above: Performed By: #### 0 0071 ####[facility] Urea nitrogen 13 mg/dL Normal 7-25 The [facility] [place] Comment on above: Performed By: #### 0 0071 ####[place] [address] C REACTIVE PROTEINon 017 C reactive protein (CRP) 28.5 mg/L High 0.0-7.0 [facility] Comment on above: Performed By: #### 0 0071 ####[place] [address] CBC W/DIFFon 09-20-2016 Basophils Auto #/vol (Bld) 0.5 % Normal 0.0-2.0 [facility] Comment on above: Performed By: #### 0 0071 ####[place] [address] Eosinophils/100 leukocytes 2.1 % Normal 0.0-5.0 [facility] Comment on above: Performed By: #### 0 0071 ####[facility] Erythrocyte distribution width Auto Ratio (RBC) 17.1 % High 11.5-16.9 [facility] Comment on above: Performed By: #### 0 0071 ####[facility] [facility] [place] [address], [facility] Erythrocytes (RBC) 3.39 mill/mm3 Low 3.50-5.50 [facility] Comment on above: Performed By: #### 0 0071 ####[facility] [facility] [place] [address], [facility] Hematocrit (HCT) 31.4 % Low 36.0-48.0 [facility] Comment on above: Performed By: #### 0 0071 ####[facility] Hemoglobin mass conc (Bld) 10.3 g/dL Low 12.0-15.0 [facility] Comment on above: Performed By: #### 0 0071 ####[place] [address] [place] [address], [facility] Lymphocytes/100 leukocytes 19.8 % Low 20.0-40.0 [facility] Comment on above: Performed By: #### 0 0071 ####[facility] MCH 30.3 pg Normal 24.0-32.0 [facility] Comment on above: Performed By: #### 0 0071 ####[facility] MCHC mass conc (RBC) 32.7 g/dL Normal 32.0-36.0 [facility] Comment on above: Performed By: #### 0 0071 ####[facility] MCV 92.6 fL Normal 80.0-100.0 [facility] Comment on above: Performed By: #### 0 0071 ####[facility] [place] [address], [facility] METHOD Normal [facility] Comment on above: Result Comment: Auto mated differential performedNormal RBC Morphology Performed By: #### 0 0071 ####[facility] [place] [address], [facility] MONOS 5.8 % Normal 2-8 [facility] Comment on above: Performed By: #### 0 0071 ####[facility] [facility].[address] Neutrophils/100 leukocytes 71.8 % High 50-70 [facility] Comment on above: Performed By: #### 0 0071 ####[facility] PLAT CNT 400 Thou/mm3 Normal 100-400 [facility] Comment on above: Performed By: #### 0 0071 ####[facility] WBC (Leukocytes) 10.6 Thou/mm3 High 4.0-10.0 [facility] Comment on above: Performed By: #### 0 0071 ####[facility] SEDIMENTATION RATEon 017 SED RATE 107 mm/hr High 0-20 [facility] Comment on above: Performed By: #### 0 0071 ####[facility] POC GLUCOSE LABon 09-15-2016 Glucose mass conc 187 mg/dL High 70-100 [facility] Comment on above: Performed By: #### 0 0071 ####[facility] Glucose mass conc 153 mg/dL High 70-100 [facility] Comment on above: Performed By: #### 5 6101, 68[address] ####[facility] [place] [address], [place] POC GLUCOSE LABon 09-14-2016 Glucose mass conc 198 mg/dL High 70-100 [facility] Comment on above: Performed By: #### 5 610, 68997 ####[facility] [place] [address], [place] Glucose mass conc 188 mg/dL High 70-100 [facility] Comment on above: Performed By: #### 5 6100, 48324 ####[facility] [place] [address], [place] Glucose mass conc 192 mg/dL High 70-100 [facility] Comment on above: Performed By: #### 5 610, 20118 ####[facility] [place] [address], [place] Glucose mass conc 155 mg/dL High 70-100 [facility] Comment on above: Performed By: #### 5 6100, 76887 ####[facility] [place] [address], [place] POC GLUCOSE LABon 09-13-2016 Glucose mass conc 223 mg/dL High 70-100 [facility] Comment on above: Performed By: #### 5 6100, 17808 ####[facility] [place] [address], [place] Glucose mass conc 212 mg/dL High 70-100 [facility] Comment on above: Performed By: #### 5 610, 38391 ####[facility] [place] [address], [place] Glucose mass conc 111 mg/dL High 70-100 [facility] Comment on above: Performed By: #### 5 610, 70060 ####[facility] [place] [address], [place] Glucose mass conc 199 mg/dL High 70-100 [facility] Comment on above: Performed By: #### 5 610, 67222 ####[facility] [place] [address], [place] Glucose mass conc 149 mg/dL High 70-100 [facility] Comment on above: Performed By: #### 5 610, 14686 ####[facility] [place] [address], [place] POC GLUCOSE LABon 09-12-2016 Glucose mass conc 205 mg/dL High 70-100 [facility] Comment on above: Performed By: #### 5 610, 81552 ####[facility] [place] [address], [place] Glucose mass conc 132 mg/dL High 70-100 [facility] Comment on above: Performed By: #### 5 6100, 19660 ####[facility] [place] [address], [place] Glucose mass conc 184 mg/dL High 70-100 [facility] Comment on above: Performed By: #### 5 6100, 42604 ####[facility] [place] [address], [place] Glucose mass conc 158 mg/dL High 70-100 [facility] Comment on above: Performed By: #### 5 610, 24647 ####[facility] [place] [address], [place] POC GLUCOSE LABon 09-11-2016 Glucose mass conc 194 mg/dL High 70-100 [facility] Comment on above: Performed By: #### 5 610, 56713 ####[facility] [place] [address], [place] Glucose mass conc 192 mg/dL High 70-100 [facility] Comment on above: Performed By: #### 5 6101, 79691 ####[facility] [facility] [place] [address], [facility] Glucose mass conc 221 mg/dL High 70-100 [facility] Comment on above: Performed By: #### 5 610, 08736 ####[facility] [facility] [place] [address], [facility] Glucose mass conc 147 mg/dL High 70-100 [facility] Comment on above: Performed By: #### 5 610, 23420 ####[facility] [facility] [place] [address], [facility] POC GLUCOSE LABon 09-10-2016 Glucose mass conc 224 mg/dL High 70-100 [facility] Comment on above: Performed By: #### 5 610, 56461 ####[facility] [facility] [place] [address], [facility] Glucose mass conc 156 mg/dL High 70-100 [facility] Comment on above: Performed By: #### 1 0008 ####[facility] [facility] [place] [address], [facility] Glucose mass conc 240 mg/dL High 70-100 [facility] Comment on above: Performed By: #### 1 0008 ####[facility] [facility] [place] [address], [facility] Glucose mass conc 171 mg/dL High 70-100 [facility] Comment on above: Performed By: #### 1 0008 ####[facility] [facility] [place] [address], [facility] BASIC METABOLIC PANELon 08-17 Calcium 8.4 mg/dL Low 8.6-10.3 [facility] Comment on above: Order Comment: No: D o not add to previous draw Performed By: #### 1 0008 ####[facility] [place] [address], [facility] Chloride 99 mmol/L Normal 98-107 [facility] Comment on above: Order Comment: No: D o not add to previous draw Performed By: #### 1 0008 ####[facility] [place] [address], [place] CO2 27 mmol/L Normal 21-31 [facility] Comment on above: Order Comment: No: D o not add to previous draw Performed By: #### 1 0008 ####[facility] [place] [address], [facility] Creatinine 1.11 mg/dL Normal 0.60-1.20 [facility] Comment on above: Order Comment: No: D o not add to previous draw Performed By: #### 1 0008 ####[facility] [place] [address], [facility] eGFR (black) mL/min/{1.73_m2} Normal >60 [facility] Comment on above: Order Comment: No: D o not add to previous draw Performed By: #### 1 0008 ####[facility] [place] [address], [facility] eGFR (non-black) 51 ml/min/1.73sq m Abnormal >60 [facility] Comment on above: Order Comment: No: D o not add to previous draw Performed By: #### 1 0008 ####[facility] [place] [address], [place] Glucose mass conc 161 mg/dL High 70-100 [facility] Comment on above: Order Comment: No: D o not add to previous draw Performed By: #### 1 0008 ####[facility] [place] [address], [place] Potassium molar conc 4.2 mmol/L Normal 3.5-5.1 [facility] Comment on above: Order Comment: No: D o not add to previous draw Performed By: #### 1 0008 ####[facility] Sodium 134 mmol/L Low 136-145 [facility] Comment on above: Order Comment: No: D o not add to previous draw Performed By: #### 1 0008 ####[facility] Urea nitrogen 24 mg/dL Normal 7-25 [facility] [place] Comment on above: Order Comment: No: D o not add to previous draw Performed By: #### 1 0008 ####[facility] CBC W/DIFFon 09-09-2016 Basophils Auto #/vol (Bld) 0.2 % Normal 0.0-2.0 [facility] Comment on above: Order Comment: No: D o not add to previous draw Performed By: #### 1 0008 ####[place] [address] Eosinophils/100 leukocytes 1.0 % Normal 0.0-5.0 [facility] Comment on above: Order Comment: No: D o not add to previous draw Performed By: #### 1 0008 ####[facility] Erythrocyte distribution width Auto Ratio (RBC) 16.9 % Normal 11.5-16.9 [facility] Comment on above: Order Comment: No: D o not add to previous draw Performed By: #### 1 0008 ####[address] Erythrocytes (RBC) 3.31 mill/mm3 Low 3.50-5.50 [facility] Comment on above: Order Comment: No: D o not add to previous draw Performed By: #### 1 0008 ####[facility] [facility].[address] Hematocrit (HCT) 30.7 % Low 36.0-48.0 [facility] Comment on above: Order Comment: No: D o not add to previous draw Performed By: #### 1 0008 ####[facility]3000 [facility] Hemoglobin mass conc (Bld) 10.0 g/dL Low 12.0-15.0 [facility] Comment on above: Order Comment: No: D o not add to previous draw Performed By: #### 1 0008 ####[address] Lymphocytes/100 leukocytes 25.6 % Normal 20.0-40.0 [facility] Comment on above: Order Comment: No: D o not add to previous draw Performed By: #### 1 0008 ####[place] [address] [facility].[address] MCH 30.3 pg Normal 24.0-32.0 [facility] Comment on above: Order Comment: No: D o not add to previous draw Performed By: #### 1 0008 ####[address] MCHC mass conc (RBC) 32.7 g/dL Normal 32.0-36.0 [facility] Comment on above: Order Comment: No: D o not add to previous draw Performed By: #### 1 0008 ####[address] MCV 92.7 fL Normal 80.0-100.0 [facility] Comment on above: Order Comment: No: D o not add to previous draw Performed By: #### 1 0008 ####[address] [id number], [place] METHOD Normal [facility] Comment on above: Order Comment: No: D o not add to previous draw Result Comment: Auto mated differential performedNormal RBC Morphology Performed By: #### 1 0008 ####[facility] [place] [address], [place] MONOS 6.9 % Normal 2-8 [facility] Comment on above: Order Comment: No: D o not add to previous draw Performed By: #### 1 0008 ####[facility] [place] [address], [place] Neutrophils/100 leukocytes 66.3 % Normal 50-70 [facility] Comment on above: Order Comment: No: D o not add to previous draw Performed By: #### 1 0008 ####[facility] [place] [address], [place] PLAT CNT 304 Thou/mm3 Normal 100-400 [facility] Comment on above: Order Comment: No: D o not add to previous draw Performed By: #### 1 0008 ####[place] [address] [place] [address], [facility] WBC (Leukocytes) 8.7 Thou/mm3 Normal 4.0-10.0 [facility] Comment on above: Order Comment: No: D o not add to previous draw Performed By: #### 1 0008 ####[facility] [place] [address], [facility] Operative Reporton 7 Operative Report MR#: [id number] [facility] Name[facility] Lesli Clay Room #: [id number] Discharge Date: Birthdate: 1960 OPERATIVE REPORTDATE OF [...] and made our box cut without difficulty. Anin sized the tibia to about 71 mm. [...] 09/08/2016/08:19 P/Que Cano M.D.Date Trans: 09/09/2016 04:17 A/Nigel_JN:[id number] cc: Rosales Taylor M.D. [address] [facility] [address] Normal [facility] POC GLUCOSE LABon 09-09-2016 Glucose mass conc 229 mg/dL High 70-100 [facility] Comment on above: Performed By: #### 1 0008 ####[facility] [facility] [place] [address], [facility] Glucose mass conc 159 mg/dL High 70-100 [facility] Comment on above: Performed By: #### 1 0008 ####[facility] [place] [address], [facility] Glucose mass conc 182 mg/dL High 70-100 [facility] Comment on above: Performed By: #### 1 0008 ####[facility] [place] [address], [facility] Glucose mass conc 159 mg/dL High 70-100 [facility] Comment on above: Performed By: #### 1 0008 ####[address] [place] [address], [facility] Glucose mass conc 172 mg/dL High 70-100 [facility] Comment on above: Performed By: #### 1 0008 ####[place] [address] [place] [address], [facility] POC GLUCOSE LABon 09-08-2016 Glucose mass conc 175 mg/dL High 70-100 [facility] Comment on above: Performed By: #### 8 5499 ####[address] [place] [address], [facility] Glucose mass conc 165 mg/dL High 70-100 [facility] Comment on above: Performed By: #### 8 5499 ####[place] [address] [facility] [place] [address], [facility] Glucose mass conc 173 mg/dL High 70-100 [facility] Comment on above: Performed By: #### 8 5499 ####[address] [address], [facility] PORTABLE KNEE RIGHT 2 VWSon 09-08-2016 PORTABLE KNEE RIGHT 2 [facility] [address] [place] [id number] P atient Name: LESLI CLAY : 1Sex: FAge: Race: WhiteMRN: [id number]. Location: OUTPPatient Status: OVisit #: [id number] Date: 09/08/2016 2:05:00 PMCompleted Date: 09/08/2016 02:45 PMRequesting Provider: QUE CANO Attending Provider: QUE BLAKE Report Copy To: Signs & Symptoms: Pain ( specify Location)History: Patient history not availableComments: Hardware Evaluation, please do in PACUExam: PORTABLE KNEE RIGHT 2 VWSAccession #: [id number] ======PORTABLE KNEE RIGHT 2 VWS 09/08/2016 2:45 [...] arthroplasty Electronically signed by:Joan Cormier. Transcribed by: [id number], User Resident: Electronically Signed by: JOAN CORMIER @ 09/08/2016 02:48 PM Normal [facility] Comment on above: Order Comment: Hardw are Evaluation, please do in PACU APTTon 08-25-2016 aPTT 33.0 s Normal 25.0-35.0 [facility] Comment on above: Result Comment: ALL [...] THIS PURPOSE. Performed By: #### 5 6101, [address] ####[place] [address] BASIC METABOLIC PANELon 07- Calcium 9.9 mg/dL Normal 8.6-10.3 [facility] Comment on above: Performed By: #### 0 0071 ####[facility] [place] [address], [facility] Chloride 96 mmol/L Low 98-107 [facility] Comment on above: Performed By: #### 0 0071 ####[facility] [facility] [place] [address], [facility] CO2 29 mmol/L Normal 21-31 [facility] Comment on above: Performed By: #### 0 0071 ####[facility] [facility] [place] [address], [facility] Creatinine 0.94 mg/dL Normal 0.60-1.20 [facility] Comment on above: Performed By: #### 0 0071 ####[facility] [facility] [place] [address], [facility] eGFR (black) mL/min/{1.73_m2} Normal >60 [facility] Comment on above: Performed By: #### 0 0071 ####[facility]3000 [facility] [place] [address], [facility] eGFR (non-black) mL/min/{1.73_m2} Normal >60 [facility] Comment on above: Performed By: #### 0 0071 ####[facility] [facility] [place] [address], [facility] Glucose mass conc 128 mg/dL High 70-100 [facility] Comment on above: Performed By: #### 0 0071 ####[facility] [place] [address], [facility] Potassium molar conc 4.0 mmol/L Normal 3.5-5.1 [facility] Comment on above: Performed By: #### 0 0071 ####[facility] [facility].[address] Sodium 135 mmol/L Low 136-145 [facility] Comment on above: Performed By: #### 0 1 ####[facility] Urea nitrogen 15 mg/dL Normal 7-25 [facility] Comment on above: Performed By: #### 0 1 ####[facility]3000 [facility].[address] CBC W/DIFFon 08-25-2016 Basophils Auto #/vol (Bld) 0.2 % Normal 0.0-2.0 [facility] Comment on above: Performed By: #### 102 ####[place] [address] [facility].[address] Eosinophils/100 leukocytes 1.6 % Normal 0.0-5.0 [facility] Comment on above: Performed By: #### 102 ####[facility] [facility].[address] Erythrocyte distribution width Auto Ratio (RBC) 16.9 % Normal 11.5-16.9 [facility] Comment on above: Performed By: #### 5 102 ####[facility] [facility].[address] Erythrocytes (RBC) 4.18 mill/mm3 Normal 3.50-5.50 [facility] Comment on above: Performed By: #### 5 102 ####[facility] [facility].[address] Hematocrit (HCT) 38.2 % Normal 36.0-48.0 [facility] Comment on above: Performed By: #### 102 ####[facility] Hemoglobin mass conc (Bld) 12.5 g/dL Normal 12.0-15.0 [facility] Comment on above: Performed By: #### 5 0103 ####[facility] [place] [address], [facility] Lymphocytes/100 leukocytes 21.4 % Normal 20.0-40.0 [facility] Comment on above: Performed By: #### 5 0103 ####[facility] [place] [address], [facility] MCH 29.9 pg Normal 24.0-32.0 [facility] Comment on above: Performed By: #### 5 0103 ####[facility]3000 [facility].[address] MCHC mass conc (RBC) 32.7 g/dL Normal 32.0-36.0 [facility] Comment on above: Performed By: #### 5 0103 ####[facility] [facility] [place] [address], [facility] MCV 91.4 fL Normal 80.0-100.0 [facility] Comment on above: Performed By: #### 5 0103 ####[facility] [facility] [place] [address], [facility] METHOD Normal [facility] Comment on above: Result Comment: Auto mated differential performedNormal RBC Morphology Performed By: #### 5 0103 ####[facility] [facility] [place] [address], [facility] MONOS 5.2 % Normal 2-8 [facility] Comment on above: Performed By: #### 5 0103 ####[facility] [place] [address], [facility] Neutrophils/100 leukocytes 71.6 % High 50-70 [facility] Comment on above: Performed By: #### 5 0103 ####[facility] [facility] [place] [address], [facility] PLAT CNT 351 Thou/mm3 Normal 100-400 [facility] Comment on above: Performed By: #### 5 0103 ####[facility] [facility] [place] [address], [facility] WBC (Leukocytes) 12.0 Thou/mm3 High 4.0-10.0 [facility] Comment on above: Performed By: #### 5 0103 ####[facility] [facility].[address] PROTHROMBIN TIMEon 7 INR Coag RelTime (PPP) 0.97 {INR} Normal 0.91-1.16 [facility] Comment on above: Result Comment: ACCC P RECOMMENDED INR FOR WARFARIN THERAPY CONDITION INRPROPHYLAXIS OF VENOUS THROMBOSIS 2-3(HIGH-RISK SURGERY)TREATMENT OF VENOUS THROMBOSIS 2-3TREATMENT OF PULMONARY EMBOLISM 2-3PREVENTION OF SYSTEMIC EMBOLISM: 2-3 ACUTE MYOCARDIAL INFARCTION TISSUE HEART VALVES VALVULAR HEART DISEASE ATRIAL FIBRILLATION RECURRENT SYSTEMIC EMBOLISMMECHANICAL HEART VALVE 2.5-3.5 FROM: ORAL ANTICOAGULANTS. MECHANISM OF ACTION, CLINICALEFFECTIVENESS, AND OPTIMAL THERAPEUTIC RANGE. [id number]. Performed By: #### 5 6101, 02812 ####[facility] [facility] [place] [address], [facility] Prothrombin time (PT) Coag time (PPP) 12.9 s Normal 12.3-14.8 [facility] Comment on above: Result Comment: ALL RESULTS MUST BE INTERPRETED WITH RESPECT TO BLOOD DRAWING ARTIFACTOR DILUTION ERROR OF ANTICOAGULANT AT THE TIME OF SAMPLING. Performed By: #### 5 6101, 06910 ####[facility] [facility] [place] [address], [facility] TYPE AND SCREENon 08-25-2016 ABO INTERPRETATION O Normal [facility] Comment on above: Performed By: #### 6 2586 ####[facility] [facility] [place] [address], [facility] ANTIBODY SCREEN Negative Normal The [facility] Comment on above: Performed By: #### 6 2586 ####[facility] [facility] [place] [address], [facility] RH INTERPRETATION Positive Normal [facility] Comment on above: Performed By: #### 6 2586 ####[facility] [facility] [place] [address], [facility] URINALYSISon 08-25-2016 Bilirubin (total) Negative Normal NEGATIVE [facility] Comment on above: Performed By: #### 1 0008 ####[facility] [facility] [place] [address], [facility] BLOOD MODERATE Abnormal NEGATIVE [facility] Comment on above: Performed By: #### 1 0008 ####[facility] [facility] [place] [address], [facility] EPIS MOD Abnormal FEW [facility] Comment on above: Performed By: #### 1 0008 ####[facility] [facility] [place] [address], [facility] Erythrocytes (RBC) 3-5 Abnormal 0-0 [facility] Comment on above: Performed By: #### 1 0008 ####[facility] [facility] [place] [address], [facility] Glucose mass conc Negative Normal NEGATIVE [facility] Comment on above: Performed By: #### 1 0008 ####[facility] [place] [address], [facility] KETONE Negative Normal NEGATIVE [facility] Comment on above: Performed By: #### 1 0008 ####[facility] [place] [address], [facility] LEUK ZEYNEP TRACE Abnormal NEGATIVE [facility] Comment on above: Performed By: #### 1 0008 ####[facility] [place] [address], [facility] pH of blood 7.0 [pH] Normal 5.0-8.0 [facility] Comment on above: Performed By: #### 1 0008 ####[facility] [facility] [place] [address], [facility] Protein Negative Normal NEGATIVE [facility] Comment on above: Performed By: #### 1 0008 ####[facility] [facility] [place] [address], [facility] SPEC GRAV 1.006 Low 1.015-1.020 [facility] Comment on above: Performed By: #### 1 0008 ####[facility] [facility] [place] [address], [facility] Urine, appearance CLEAR Normal CLEAR [facility] Comment on above: Performed By: #### 1 0008 ####[facility] [place] [address], [place] Urine, bacteria in sediment MANY Abnormal NONE SEEN [facility] Comment on above: Performed By: #### 1 0008 ####[facility] [place] [address], [facility] Urine, color STRAW Abnormal YELLOW [facility] Comment on above: Performed By: #### 1 0008 ####[facility] [facility] [place] [address], [facility] Urine, nitrite presence Negative Normal NEGATIVE [facility] Comment on above: Performed By: #### 1 0008 ####[facility] [facility] [place] [address], [facility] WBC UA 11-20 Abnormal 0-0 [facility] Comment on above: Performed By: #### 1 0008 ####[facility] [facility], [place] [address] [place] [address] Vital Signs Date Time Vital Sign Value Performing Clinician Faci lity 04-12-2024 10:47-0500 Body mass index (BMI) [Ratio] 54.5 kg/m2 Alexandra Osorio FARM SPECIALIST Work Phone: [facility] 04-12-2024 10:47-0500 Body temperature 96.21 [degF] Alexandra Osorio FARM SPECIALIST Work Phone: [facility] 04-12-2024 10:47-0500 Body weight 135.17 kg Alexandra Osorio FARM SPECIALIST Work Phone: [facility] 04-12-2024 10:47-0500 Diastolic blood pressure 90 mm[Hg] Alexandra Osorio FARM SPECIALIST Work Phone: [facility] 04-12-2024 10:47-0500 Heart rate 82 /min Alexandra Osorio FARM SPECIALIST Work Phone: [facility] 04-12-2024 10:47-0500 SaO2% (BldA) [Mass fraction] 92 % Alexandra Osorio FARM SPECIALIST Work Phone: [facility] 04-12-2024 10:47-0500 Systolic blood pressure 136 mm[Hg] Alexandra Osorio FARM SPECIALIST Work Phone: [facility] 03-05-2024 08:53-0500 Body height 157.5 cm Alexandra Osorio FARM SPECIALIST Work Phone: [facility] 03-05-2024 08:53-0500 Body mass index (BMI) [Ratio] 52.13 kg/m2 Alexandra Hackenburg FARM SPECIALIST Work Phone: [facility] 03-05-2024 08:53-0500 Body weight 129.28 kg Alexandra Hackenburg FARM SPECIALIST Work Phone: [facility] 03-05-2024 08:53-0500 Diastolic blood pressure 78 mm[Hg] Alexandra Hackenburg FARM SPECIALIST Work Phone: [facility] 03-05-2024 08:53-0500 Heart rate 94 /min Alexandra Hackenburg FARM SPECIALIST Work Phone: [facility] 03-05-2024 08:53-0500 Respiratory rate 18 /min Alexandra Hackenburg FARM SPECIALIST Work Phone: [facility] 03-05-2024 08:53-0500 SaO2% (BldA) [Mass fraction] 94 % Alexandra Hagallitoenburg FARM SPECIALIST Work Phone: [facility] 03-05-2024 08:53-0500 Systolic blood pressure 124 mm[Hg] Alexandra Hackenburg FARM SPECIALIST Work Phone: [facility] 02-29-2024 16:22-0500 Body height 157.5 cm Alexandra Hackenburg FARM SPECIALIST Work Phone: [facility] 02-29-2024 16:22-0500 Body mass index (BMI) [Ratio] 52.49 kg/m2 Alexandra Hackenburg FARM SPECIALIST Work Phone: [facility] 02-29-2024 16:22-0500 Body weight 130.18 kg Alexandra Hackenburg FARM SPECIALIST Work Phone: [facility] 02-29-2024 16:22-0500 Diastolic blood pressure 82 mm[Hg] Alexandra Hackenburg FARM SPECIALIST Work Phone: [facility] 02-29-2024 16:22-0500 Heart rate 78 /min Alexandra Hackenburg FARM SPECIALIST Work Phone: [facility] 02-29-2024 16:22-0500 Respiratory rate 18 /min Alexandra Osorio FARM SPECIALIST Work Phone: [facility] 02-29-2024 16:22-0500 SaO2% (BldA) [Mass fraction] 95 % Alexandra Osorio FARM SPECIALIST Work Phone: [facility] 02-29-2024 16:22-0500 Systolic blood pressure 130 mm[Hg] Alexandra Osorio FARM SPECIALIST Work Phone: [facility] 01-19-2024 11:23-0500 Body height 157.5 cm Pastora Ackermank FARM SPECIALIST Work Phone: [facility] 01-19-2024 11:23-0500 Body mass index (BMI) [Ratio] 51.18 kg/m2 Pastora Velardepatrick FARM SPECIALIST Work Phone: [facility] 01-19-2024 11:23-0500 Body temperature 97.81 [degF] Pastora Velardepatrick FARM SPECIALIST Work Phone: [facility] 01-19-2024 11:23-0500 Body weight 126.92 kg Pastora Obrientrick FARM SPECIALIST Work Phone: [facility] 01-19-2024 11:23-0500 Diastolic blood pressure 86 mm[Hg] Pastora Velardepatrick FARM SPECIALIST Work Phone: [facility] 01-19-2024 11:23-0500 Heart rate 100 /min Pastora Velardepatrick FARM SPECIALIST Work Phone: [facility] 01-19-2024 11:23-0500 SaO2% (BldA) [Mass fraction] 97 % Pastora Velardepatrick FARM SPECIALIST Work Phone: [facility] 01-19-2024 11:23-0500 Systolic blood pressure 150 mm[Hg] Pastora Kohler FARM SPECIALIST Work Phone: [facility] 12-30-2023 09:56-0500 Body mass index (BMI) [Ratio] 50.5 kg/m2 [facility] 12-30-2023 09:56-0500 Diastolic blood pressure 94 mm[Hg] [facility] 12-30-2023 09:56-0500 Heart rate 86 /min [facility] 12-30-2023 09:56-0500 Respiratory rate 18 /min [facility] 12-30-2023 09:56-0500 SaO2% (BldA) [Mass fraction] 100 % [facility] 12-30-2023 09:56-0500 Systolic blood pressure 136 mm[Hg] [facility] 12-30-2023 09:45-0500 Body height 160.02 cm [facility] 12-30-2023 09:45-0500 Body weight 129.35 kg [facility] 09-23-2023 14:28-0400 Body height 160.02 cm [facility] 09-23-2023 14:28-0400 Body mass index (BMI) [Ratio] 48.6 kg/m2 [facility] 09-23-2023 14:28-0400 Body weight 124.51 kg [facility] 09-23-2023 14:28-0400 Diastolic blood pressure 69 mm[Hg] [facility] 09-23-2023 14:28-0400 Heart rate 82 /min [facility] 09-23-2023 14:28-0400 Respiratory rate 20 /min [facility] 09-23-2023 14:28-0400 SaO2% (BldA) [Mass fraction] 95 % [facility] 09-23-2023 14:28-0400 Systolic blood pressure 104 mm[Hg] [facility] 06-30-2023 14:45-0400 Diastolic blood pressure 87 mm[Hg] Piotr Logan MD Work Phone: [facility] 06-30-2023 14:45-0400 Heart rate 78 /min Piotr Logan MD Work Phone: [facility] 06-30-2023 14:45-0400 Respiratory rate 16 /min Piotr Logan MD [facility]: [facility] 06-30-2023 14:45-0400 SaO2% (BldA) [Mass fraction] 97 % Piotr Logan MD Work Phone: [facility] 06-30-2023 14:45-0400 Systolic blood pressure 133 mm[Hg] Piotr Logan MD Work Phone: [facility] 06-30-2023 12:35-0400 Body temperature 96.21 [degF] Piotr Logan MD Work Phone: [facility] 06-30-2023 11:05-0400 Body height 157.5 cm Piotr Logan MD Work Phone: [facility] 06-30-2023 11:05-0400 Body mass index (BMI) [Ratio] 52.61 kg/m2 Piotr Logan MD Work Phone: [facility] 06-30-2023 11:05-0400 Body weight 130.5 kg Piotr Logan MD Work Phone: [facility] 06-03-2023 10:04-0400 Body height 160 cm Edwin Moreno MD Work Phone: [facility] [employer] [facility] 06-03-2023 10:04-0400 Body mass index (BMI) [Ratio] 50.38 kg/m2 Edwin Moreno MD Work Phone: [facility] [employer] [facility] 06-03-2023 10:04-0400 Body temperature 97.59 [degF] Edwin Moreno MD Work Phone: [facility] [employer] [facility] 06-03-2023 10:04-0400 Body weight 129 kg Edwin Moreno MD Work Phone: [facility] [employer] [facility] 06-03-2023 10:04-0400 Diastolic blood pressure 98 mm[Hg] Edwin Moreno MD Work Phone: [facility] 06-03-2023 10:04-0400 Heart rate 90 /min Edwin Moreno MD Work Phone: [facility] 06-03-2023 10:04-0400 SaO2% (BldA) [Mass fraction] 97 % Edwin Moreno MD Work Phone: [facility] 06-03-2023 10:04-0400 Systolic blood pressure 154 mm[Hg] Edwin Moreno MD Work Phone: [facility] 05-11-2023 11:54-0400 Body height 160.02 cm [facility] 05-11-2023 11:54-0400 Body mass index (BMI) [Ratio] 51.5 kg/m2 [facility] 05-11-2023 11:54-0400 Body weight 132.05 kg [facility] 05-11-2023 11:54-0400 Diastolic blood pressure 83 mm[Hg] [facility] 05-11-2023 11:54-0400 Heart rate 74 /min [facility] 05-11-2023 11:54-0400 Respiratory rate 20 /min [facility] 05-11-2023 11:54-0400 SaO2% (BldA) [Mass fraction] 98 % [facility] 05-11-2023 11:54-0400 Systolic blood pressure 139 mm[Hg] [facility] 04-07-2023 09:09-0500 Body height 160.02 cm DO Kalie Rumschlag Work Phone: [facility] 04-07-2023 09:09-0500 Body mass index (BMI) [Ratio] 52.6 kg/m2 DO Kalie Rumschlag Work Phone: [facility] 04-07-2023 09:09-0500 Body weight 134.83 kg DO Kalie Rumschlag Work Phone: [facility] 04-07-2023 09:09-0500 Diastolic blood pressure 82 mm[Hg] DO Kalie Rumschlag Work Phone: [facility] 04-07-2023 09:09-0500 Heart rate 80 /min DO Kalie Rumschlag Work Phone: [facility] 04-07-2023 09:09-0500 Respiratory rate 20 /min DO Kalie Rumschlag Work Phone: [facility] 04-07-2023 09:09-0500 SaO2% (BldA) [Mass fraction] 93 % DO Kalie Rumschlag Work Phone: [facility] 04-07-2023 09:09-0500 Systolic blood pressure 130 mm[Hg] DO Kalie Rumschlag Work Phone: [facility] 02-03-2023 08:45-0500 Body height 160.02 cm Lili Scally Other [facility] 02-03-2023 08:45-0500 Body mass index (BMI) [Ratio] 52.61 kg/m2 Lili Scally Other [employer] Other 02-03-2023 08:45-0500 Body weight 134.72 kg Lili Scally Other [employer] Other 02-03-2023 08:45-0500 Body weight 134.71 kg DO Kalie Rumschlag Work Phone: [facility] 02-03-2023 08:45-0500 Diastolic blood pressure Lili Scally Other [employer] Other 02-03-2023 08:45-0500 Respiratory rate 20 /min Lili Scally Other [employer] Other 02-03-2023 08:45-0500 SaO2% (BldA) [Mass fraction] 94 % Lili Scally Other [employer] Other 02-03-2023 08:45-0500 Systolic blood pressure 144 mm[Hg] Lili Scally Other [employer] Other 11-26-2022 09:45-0400 Body height 160.02 cm Lili Scally Other [employer] Other 11-26-2022 09:45-0400 Body mass index (BMI) [Ratio] 51.37 kg/m2 Lili Scally Other [employer] Other 11-26-2022 09:45-0400 Body weight 131.54 kg Lili Scally Other [employer] Other 11-26-2022 09:45-0400 Diastolic blood pressure Lili Scally Other [employer] Other 11-26-2022 09:45-0400 Respiratory rate 20 /min Lili Scally Other [employer] Other 11-26-2022 09:45-0400 SaO2% (BldA) [Mass fraction] 96 % Lili Scally Other [employer] Other 11-26-2022 09:45-0400 Systolic blood pressure 124 mm[Hg] Lili Scally Other [employer] Other 11-25-2022 09:20-0400 Body height 160.02 cm Stoney Turner Other [employer] Other 11-25-2022 09:20-0400 Body mass index (BMI) [Ratio] 52.07 kg/m2 Stoney Turner Other [employer] Other 11-25-2022 09:20-0400 Body weight 133.36 kg Stoney Turner Other [employer] Other 10-30-2022 11:18-0400 Diastolic blood pressure 81 mm[Hg] DO Judith Amanda Work Phone: [facility] 10-30-2022 11:18-0400 Heart rate 94 /min DO Judith Amanda Work Phone: [facility] 10-30-2022 11:18-0400 Respiratory rate 18 /min DO Judith Amanda Work Phone: [facility] 10-30-2022 11:18-0400 SaO2% (BldA) [Mass fraction] 96 % DO Judith Amanda Work Phone: [facility] 10-30-2022 11:18-0400 Systolic blood pressure 159 mm[Hg] DO Judith Amanda Work Phone: [facility] 10-30-2022 09:52-0400 Body height 160.02 cm DO Judith Amanda Work Phone: [facility] 10-30-2022 09:52-0400 Body weight 126.55 kg DO Judith Amanda Work Phone: [facility] 10-09-2022 10:40-0400 Body height 160.02 cm Martine Tobias Other [employer] Other 10-09-2022 10:40-0400 Body mass index (BMI) [Ratio] 52.07 kg/m2 Martine Tobias Other [employer] Other 10-09-2022 10:40-0400 Body weight 133.36 kg Martine Tobias Other [employer] Other 10-09-2022 10:40-0400 Diastolic blood pressure 88 mm[Hg] Martine Tobias Other [employer] Other 10-09-2022 10:40-0400 Systolic blood pressure 154 mm[Hg] Martine Tobias Other [employer] Other 10-03-2022 09:15-0400 Body height 160.02 cm Lili Scally Other [employer] Other 10-03-2022 09:15-0400 Body mass index (BMI) [Ratio] 52.09 kg/m2 Lili Scally Other [employer] Other 10-03-2022 09:15-0400 Body weight 133.4 kg Lili Scally Other [employer] Other 10-03-2022 09:15-0400 Diastolic blood pressure 88 mm[Hg] Lili Scally Other [employer] Other 10-03-2022 09:15-0400 Respiratory rate 20 /min Lili Scally Other [employer] Other 10-03-2022 09:15-0400 SaO2% (BldA) [Mass fraction] 65 % Lili Scally Other [employer] Other 10-03-2022 09:15-0400 Systolic blood pressure 143 mm[Hg] Lili Scally Other [employer] Other 09-19-2022 13:49-0400 Diastolic blood pressure 109 mm[Hg] DO Kalie Kasper Work Phone: [facility] 09-19-2022 13:49-0400 Heart rate 94 /min DO Kalie Rumschlag Work Phone: [facility] 09-19-2022 13:49-0400 Respiratory rate 20 /min DO Kalie Rumschlag Work Phone: [facility] 09-19-2022 13:49-0400 SaO2% (BldA) [Mass fraction] 96 % DO Kalie Rumschlag Work Phone: [facility] 09-19-2022 13:49-0400 Systolic blood pressure 209 mm[Hg] DO Kalie Rumschlag Work Phone: [facility] 09-19-2022 13:42-0400 Body height 162.56 cm DO Kalie Rumschlag Work Phone: [facility] 09-19-2022 13:42-0400 Body weight 124.73 kg DO Kalie Rumschlag Work Phone: [facility] 08-12-2022 09:40-0400 Body height 160.02 cm Martine Tobias Other [employer] Other 08-12-2022 09:40-0400 Body mass index (BMI) [Ratio] 50.62 kg/m2 Martine Tobias Other [employer] Other 08-12-2022 09:40-0400 Body weight 129.64 kg Martine Tobias Other [employer] Other 08-12-2022 09:40-0400 Diastolic blood pressure 86 mm[Hg] Martine Tobias Other [employer] Other 08-12-2022 09:40-0400 Systolic blood pressure 150 mm[Hg] Martine Tobias Other [employer] Other 08-01-2022 09:15-0400 Body height 160.02 cm Lili Scally Other [employer] Other 08-01-2022 09:15-0400 Body mass index (BMI) [Ratio] 50.62 kg/m2 Lili Scally Other [employer] Other 08-01-2022 09:15-0400 Body weight 129.64 kg Lili Scally Other [employer] Other 08-01-2022 09:15-0400 Diastolic blood pressure 84 mm[Hg] Lili Scally Other [employer] Other 08-01-2022 09:15-0400 Respiratory rate 18 /min Lili Scally Other [employer] Other 08-01-2022 09:15-0400 SaO2% (BldA) [Mass fraction] 95 % Lili Scally Other [employer] Other 08-01-2022 09:15-0400 Systolic blood pressure 130 mm[Hg] Lili Scally Other [employer] Other 06-06-2022 10:45-0400 Body height 160.02 cm Lili Scally Other [employer] Other 06-06-2022 10:45-0400 Body mass index (BMI) [Ratio] 50.43 kg/m2 Lili Scally Other [employer] Other 06-06-2022 10:45-0400 Body weight 129.14 kg Lili Scally Other [employer] Other 06-06-2022 10:45-0400 Diastolic blood pressure 76 mm[Hg] Lili Scally Other [employer] Other 06-06-2022 10:45-0400 Respiratory rate 18 /min Lili Scally Other [employer] Other 06-06-2022 10:45-0400 SaO2% (BldA) [Mass fraction] 96 % Lili Scally Other [employer] Other 06-06-2022 10:45-0400 Systolic blood pressure 131 mm[Hg] Lili Scally Other [employer] Other 03-06-2022 14:45-0500 Body height 160.02 cm Lili Scally Other [employer] Other 03-06-2022 14:45-0500 Body mass index (BMI) [Ratio] 46.81 kg/m2 Lili Scally Other [employer] Other 03-06-2022 14:45-0500 Body weight 119.89 kg Lili Scally Other [employer] Other 03-06-2022 14:45-0500 Diastolic blood pressure 72 mm[Hg] Lili Scally Other [employer] Other 03-06-2022 14:45-0500 Respiratory rate 18 /min Lili Scally Other [employer] Other 03-06-2022 14:45-0500 SaO2% (BldA) [Mass fraction] 96 % Lili Scally Other [employer] Other 03-06-2022 14:45-0500 Systolic blood pressure 112 mm[Hg] Lili Scally Other [employer] Other 10-28-2021 11:15-0400 Body height 160.02 cm Lili Scally Other [employer] Other 10-28-2021 11:15-0400 Body mass index (BMI) [Ratio] 45.49 kg/m2 Lili Scally Other [employer] Other 10-28-2021 11:15-0400 Body weight 116.48 kg Lili Scally Other [employer] Other 10-28-2021 11:15-0400 Diastolic blood pressure 83 mm[Hg] Lili Scally Other [employer] Other 10-28-2021 11:15-0400 Respiratory rate 18 /min Lili Scally Other [employer] Other 10-28-2021 11:15-0400 SaO2% (BldA) [Mass fraction] 97 % Lili Scally Other [employer] Other 10-28-2021 11:15-0400 Systolic blood pressure 133 mm[Hg] Lili Scally Other [employer] Other 07-04-2021 09:15-0400 Body height 160.02 cm Lili Scally Other [employer] Other 07-04-2021 09:15-0400 Body mass index (BMI) [Ratio] 45.79 kg/m2 Lili Scally Other [employer] Other 07-04-2021 09:15-0400 Body weight 117.26 kg Lili Scally Other [employer] Other 07-04-2021 09:15-0400 Diastolic blood pressure 83 mm[Hg] Lili Scally Other [employer] Other 07-04-2021 09:15-0400 Respiratory rate 18 /min Lili Scally Other [employer] Other 07-04-2021 09:15-0400 SaO2% (BldA) [Mass fraction] 96 % Lili Scally Other [employer] Other 07-04-2021 09:15-0400 Systolic blood pressure 125 mm[Hg] Lili Scally Other [employer] Other 11-21-2020 10:30-0400 Body height 160.02 cm Clifford Munoz Jr. Other [employer] Other 11-21-2020 10:30-0400 Body mass index (BMI) [Ratio] 46.97 kg/m2 Clifford Munoz Jr. Other [employer] Other 11-21-2020 10:30-0400 Body weight 120.29 kg Clifford Munoz Jr. Other [employer] Other 11-21-2020 10:30-0400 Diastolic blood pressure 76 mm[Hg] Clifford Munoz Jr. Other [employer] Other 11-21-2020 10:30-0400 Respiratory rate 18 /min Clifford Munoz Jr. Other [employer] Other 11-21-2020 10:30-0400 SaO2% (BldA) [Mass fraction] 97 % Clifford Munoz Jr. Other [employer] Other 11-21-2020 10:30-0400 Systolic blood pressure 123 mm[Hg] Clifford Munoz Jr. Other [employer] Other Encounters Encounter Date Encounter Type Care Provider Facility Start: 04-26-2024 End: 04-26-2024 Office outpatient visit 40 minutes Jr. Rica Rodriguez DO Work Phone: [facility] Comment on above: Acute pain of right shoulder (Primary Dx); Arthritis of right acromioclavicular joint; Biceps tendinitis, right; Partial nontraumatic tear of rotator cuff, right Start: 04-18-2024 End: 04-18-2024 Telephone encounter Lalitha Ronnie FARM SPECIALIST Work Phone: [facility] Start: 04-12-2024 End: 04-12-2024 Bamboo flowsheet Alexandra Osorio FARM SPECIALIST Work Phone: [facility] Start: 04-12-2024 End: 04-12-2024 Bamboo flowsheet Alexandra Osorio FARM SPECIALIST Work Phone: [facility] Start: 04-12-2024 End: 04-12-2024 Office outpatient visit 25 minutes Alexandra Osorio FARM SPECIALIST Work Phone: [facility] Comment on above: Type 2 diabetes livier itus with diabetic mononeuropathy, with long-term current use of insulin ([facility]) (Primary Dx); SOB (shortness of breath); Wheezing; Poorly-controlled hypertension (CMS/HCC) Start: 04-12-2024 End: 04-12-2024 Orders Only Alexandra Osorio FARM SPECIALIST Work Phone: [facility] Comment on above: Acute non-recurrent pansinusitis (Primary Dx) Start: 03-23-2024 End: 03-23-2024 Bamboo flowsheet Sean León PT Work Phone: [facility] Start: 03-23-2024 End: 03-23-2024 Bamboo flowsheet Sean León PT Work Phone: [facility] Start: 03-23-2024 End: 03-23-2024 ambulatory Sean Albaradoiggs PT Work Phone: [facility] Comment on above: Biceps tendinitis, r ight (Primary Dx); Impingement of right shoulder Start: 03-16-2024 End: 03-16-2024 Bamboo flowsheet JrGhulam Nair Stepdamien DO Work Phone: [facility] Start: 03-16-2024 End: 03-16-2024 Bamboo flowsheet JrGhulam Nair Stepanic DO Work Phone: [facility] Start: 03-16-2024 End: 03-16-2024 Office outpatient visit 25 minutes Jr. Rica Rodriguez DO Work Phone: [facility] Comment on above: Acute pain of right shoulder (Primary Dx); Arthritis of right acromioclavicular joint; Biceps tendinitis, right Start: 03-16-2024 End: 03-16-2024 ambulatory RICA KANG Not Available Start: 2024 End: 2024 Refill Judith Newman DO Work Phone: [facility] Comment on above: Mixed hyperlipidemia (CMS/HCC) Start: 03-10-2024 End: 03-10-2024 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 procedure Pastora Kohler FARM SPECIALIST-C Work Phone: [facility] [place] Work Phone: Start: 03-10-2024 End: 03-10-2024 ambulatory Pastora Kohler FARM SPECIALIST-C Work Phone: [facility] Work Phone: Start: 03-05-2024 End: 03-05-2024 Bamboo flowsheet Alexandra Osorio FARM SPECIALIST Work Phone: [facility] Start: 03-05-2024 End: 03-05-2024 Bamboo flowsheet Alexandra Des Osorio FARM SPECIALIST Work Phone: [facility] Start: 03-05-2024 End: 03-05-2024 Telephone encounter Alexandra Osorio FARM SPECIALIST Work Phone: [facility] Start: 03-05-2024 End: 03-05-2024 Office outpatient visit 15 minutes Alexandra Des Osorio FARM SPECIALIST Work Phone: [facility] Comment on above: Left leg cellulitis (Primary Dx); Type 2 diabetes mellitus with diabetic mononeuropathy, with long-term current use of insulin ([facility]); Skin rash; Opioid dependence, uncomplicated ([facility]) Start: 03-05-2024 End: 03-05-2024 ambulatory ALEXANDRA OSORIO Not Available Start: 03-02-2024 End: 03-02-2024 Telephone encounter Lauren Torres PA Work Phone: [facility] Comment on above: MRI Concerns Start: 03-01-2024 Non-patient / Non-visit Sid Kohler FARM SPECIALIST-C Work Phone: [facility] Work Phone: Start: 02-29-2024 End: 02-29-2024 Office outpatient visit 25 minutes Alexandra Osorio FARM SPECIALIST Work Phone: [facility] Comment on above: Type 2 diabetes livier itus with diabetic mononeuropathy, with long-term current use of insulin ([facility]) (Primary Dx); Left leg cellulitis; Morbid (severe) obesity due to excess calories ([facility]); Body mass index (BMI) 50.0-59.9, adult ([facility]); Type 2 diabetes mellitus with other skin complications ([facility]); Bipolar disorder, unspecified ([facility]) Start: 02-29-2024 End: 02-29-2024 ambulatory ALEXANDRA OSORIO Not Available Start: 02-29-2024 End: 02-29-2024 Bamboo flowsheet Alexandra Osorio FARM SPECIALIST Work Phone: [facility] Start: 02-29-2024 End: 02-29-2024 Bamboo flowsheet Alexandra Osorio FARM SPECIALIST Work Phone: [facility] Start: 01-26-2024 End: 01-26-2024 Bamboo flowsheet Lauren Torres PA Work Phone: [facility] Start: 01-26-2024 End: 01-26-2024 Bamboo flowsheet Lauren Torres PA Work Phone: [facility] Start: 01-26-2024 End: 01-26-2024 Office outpatient visit 15 minutes Lauren Torres PA Work Phone: [facility] Comment on above: Acute pain of right shoulder (Primary Dx); Arthritis of right acromioclavicular joint; Internal derangement of right shoulder; History of claustrophobia Start: 01-26-2024 End: 01-26-2024 ambulatory LAUREN TORRES Not Available Start: 01-19-2024 End: 01-19-2024 Bamboo flowsheet Pastora Kohler FARM SPECIALIST Work Phone: [facility] Start: 01-19-2024 End: 01-19-2024 Bamboo flowsheet Pastora Kohler FARM SPECIALIST Work Phone: [facility] Start: 01-19-2024 End: 01-19-2024 Office outpatient visit 15 minutes Pastora Kohler FARM SPECIALIST Work Phone: [facility] Comment on above: Bronchitis (Primary Dx); 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); Wheezing Start: 01-19-2024 End: 01-19-2024 ambulatory PASTORA KOHLER Not Available Start: 01-11-2024 End: 01-13-2024 Refill Judithchava Newman DO Work Phone: [facility] Comment on above: Primary hypertension (CMS/HCC) Start: 01-05-2024 End: 01-05-2024 ambulatory AKANKSHA NICKERSON [facility] Start: 12-30-2023 End: 12-30-2023 ambulatory [facility] Work Phone: Start: 12-30-2023 End: 12-30-2023 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 procedure [facility] Work Phone: Start: 12-29-2023 End: 12-29-2023 Bamboo flowsheet Lauren HILL Work Phone: [facility] Start: 12-29-2023 End: 12-29-2023 Bamboo flowsheet Lauren HILL Work Phone: [facility] Start: 12-29-2023 End: 12-29-2023 Office outpatient visit 25 minutes Lauren HILL Work Phone: [facility] Comment on above: Acute pain of right shoulder (Primary Dx); Arthritis of right acromioclavicular joint Start: 12-29-2023 End: 12-29-2023 ambulatory LAUREN TORRES Not Available Start: 12-24-2023 Non-patient / Non-visit [facility] Work Phone: Start: 12-11-2023 End: 12-11-2023 Bamboo flowsheet Lauren IHLL Work Phone: [facility] Start: 12-11-2023 End: 12-11-2023 Bamboo flowsheet Lauren Torres PA Work Phone: [facility] Start: 12-11-2023 End: 12-11-2023 Office outpatient visit 15 minutes Lauren HILL Work Phone: [facility] Comment on above: Acute pain of left k nee (Primary Dx); History of left knee replacement Start: 12-11-2023 End: 12-11-2023 ambulatory LAUREN TORRES Not Available Start: 12-06-2023 End: 12-07-2023 Refill Judith Newman DO [facility] Phone: [facility] Comment on above: Primary hypertension (CMS/HCC) Start: 11-20-2023 End: 11-20-2023 Bamboo flowsheet Lauren HILL Work Phone: [facility] Start: 11-20-2023 End: 11-20-2023 Bamboo flowsheet Lauren HILL Work Phone: [facility] Start: 11-20-2023 End: 11-20-2023 Office outpatient visit 25 minutes Lauren HILL Work Phone: [facility] Comment on above: Acute pain of left k nee (Primary Dx); History of left knee replacement; Left hip pain Start: 11-20-2023 End: 11-20-2023 ambulatory LAUREN TORRES Not Available Start: 09-23-2023 End: 09-23-2023 ambulatory [facility] Work Phone: Start: 09-23-2023 End: 09-23-2023 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 procedure [facility] Work Phone: Start: 09-15-2023 End: 09-15-2023 ambulatory JENNIFER CABRERA Not Available Start: 08-04-2023 End: 08-04-2023 ambulatory PASTORA KOHLER [facility] Start: 07-28-2023 End: 07-29-2023 ambulatory [facility] Start: 07-23-2023 End: 07-23-2023 ambulatory AKANKSHA [facility] Start: 07-16-2023 End: 07-20-2023 ambulatory [facility] Start: 07-16-2023 Encounter for other preprocedural examination [facility] Start: 06-30-2023 End: 06-30-2023 ambulatory [facility] Start: 06-30-2023 End: 06-30-2023 Subsequent hospital visit by physician Piotr Logan MD Work Phone: [facility] Comment on above: Abnormal stress test Start: 06-29-2023 End: 07-18-2023 ambulatory [facility] Start: 06-29-2023 Non-patient / Non-visit [facility] Work Phone: Start: 06-23-2023 End: 06-25-2023 ambulatory [facility] Start: 06-23-2023 Encounter for preprocedural cardiovascular examination [facility] Start: 06-18-2023 End: 06-20-2023 [facility] Start: 06-15-2023 End: 06-15-2023 [facility] Start: 06-05-2023 End: 06-05-2023 ambulatory AKANKSHA [facility] Start: 06-04-2023 End: 06-04-2023 Telephone encounter Edwin Moreno MD Work Phone: [facility] Comment on above: Procedure (Out of ne twork) Start: 06-04-2023 End: 06-04-2023 ambulatory JERI MAGAÑA Not Available Start: 06-04-2023 End: 06-04-2023 ambulatory EDWIN Nair [facility] Start: 06-04-2023 Encounter for other preprocedural examination EDWIN Nair [facility] Start: 06-03-2023 End: 06-03-2023 ambulatory EDWIN Nair [facility] Start: 06-03-2023 End: 06-03-2023 Office outpatient new 60 minutes Edwin Moreno MD Work Phone: [facility] Comment on above: Endometrial cancer ( [facility]) (Primary Dx); BMI 50.0-59.9, adult ([facility]) Start: 05-22-2023 End: 05-22-2023 ambulatory Shawn Webb [facility] Work Phone: Start: 05-22-2023 End: 05-22-2023 Departed Referred Shawn Webb Work Phone: [facility] Start: 05-14-2023 End: 05-14-2023 ambulatory DEBORAH Not Available Start: 05-11-2023 End: 05-11-2023 ambulatory [facility] Work Phone: Start: 05-11-2023 End: 05-11-2023 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 procedure [facility] Work Phone: Start: 04-28-2023 End: 04-28-2023 ambulatory SHAWN JON Not Available Start: 04-22-2023 Non-patient / Non-visit [facility] Work Phone: Start: 04-22-2023 End: 04-22-2023 ambulatory PASTORA KOHLER Not Available Start: 04-21-2023 End: 04-21-2023 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 procedure [facility] Work Phone: Start: 04-07-2023 End: 04-07-2023 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 procedure DO Kalie Kasper Work Phone: [facility] Work Phone: Start: 04-07-2023 End: 04-07-2023 ambulatory DO Kalie Rumschlag Work Phone: [facility] Work Phone: Start: 03-26-2023 End: 03-26-2023 ambulatory AKANKSHA NICKERSON [facility] Start: 03-04-2023 End: 03-04-2023 ambulatory Lili Burgos Other [employer] Other Start: 03-04-2023 Telephone encounter [facility]ili [facility] Start: 02-03-2023 (DM) Diabetes Lili Sequeira [facility] Start: 02-03-2023 End: 02-03-2023 ambulatory DO Kalie Rumschlag Work Phone: [employer] Other Start: 02-03-2023 End: 02-03-2023 Discharged Recurring DO Kalie Rumschlag Work Phone: [facility] Work Phone: Start: 02-03-2023 End: 02-03-2023 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 procedure DO Kalie Rumschlag Work Phone: [facility] Work Phone: Start: 01-26-2023 End: 01-26-2023 ambulatory Lili Airamwinston Other [employer] Other Start: 01-26-2023 Telephone encounter [facility] Start: 01-02-2023 End: 01-02-2023 ambulatory Lili Burgos Other [employer] Other Start: 01-02-2023 Telephone encounter [facility]ili [facility] Start: 11-26-2022 (DM) Diabetes Lili Sequeira ds [facility] Start: 11-26-2022 End: 11-26-2022 ambulatory Lili Burgos Other [employer] Other Start: 11-25-2022 End: 11-25-2022 ambulatory Stoney Turner Other [facility] Other Start: 11-25-2022 Office outpatient ne w 30 minutes Stoney Turner [facility] [place] Start: 11-12-2022 End: 11-12-2022 ambulatory Lili Airamwinston Other [facility] Other Start: 11-12-2022 Telephone encounter [facility] Start: 10-30-2022 End: 10-30-2022 Admission to same day surgery center DO Judith Amanda Work Phone: [facility] Work Phone: Start: 10-30-2022 End: 10-30-2022 ambulatory DO Judith G Amanda Work Phone: [facility] Work Phone: Start: 10-09-2022 End: 10-09-2022 ambulatory Martine Tobias Other [facility] Other Start: 10-09-2022 Office outpatient vi sit 25 minutes Martine Tobias [facility] [place] Start: 10-07-2022 End: 10-07-2022 ambulatory DO Judith G Amanda Work Phone: [facility] Work Phone: Start: 10-07-2022 End: 10-07-2022 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 procedure DO Judith Amanda Work Phone: [facility] Work Phone: Start: 10-03-2022 (DM) Diabetes [facility]ili Se[facility] Start: 10-03-2022 End: 10-03-2022 ambulatory Lili Burgos Other [facility] Other Start: 10-03-2022 Registered Recurring DO Judith Amanda Work Phone: [facility] Work Phone: Start: 09-26-2022 End: 09-26-2022 ambulatory Lili Burgos Other [facility] Other Start: 09-26-2022 Telephone encounter [facility] Start: 09-19-2022 End: 09-19-2022 ambulatory DO Kalie Rumschlag Work Phone: [facility] Work Phone: Start: 09-19-2022 End: 09-19-2022 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 procedure DO Kalie Rumschlag Work Phone: [facility] [place] Work Phone: Start: 08-18-2022 End: 08-18-2022 ambulatory DO Kalie Rumschlag Work Phone: [facility] Work Phone: Start: 08-18-2022 End: 08-18-2022 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 procedure DO Kalie Rumschlag Work Phone: [facility] [place] Work Phone: Start: 08-12-2022 End: 08-12-2022 ambulatory Martine Tobias Other [employer] Other Start: 08-12-2022 Office outpatient ne w 45 minutes Martine Tobias [facility] [place] Start: 08-12-2022 Telephone encounter [facility] Start: 08-05-2022 End: 08-05-2022 ambulatory Lili Airamly Other [employer] Other Start: 08-05-2022 Telephone encounter Lili Aubrey Bello [place] [facility] Start: 08-01-2022 (DM) Diabetes Lili Scally [facility] Start: 08-01-2022 End: 08-01-2022 ambulatory Lili Airamly Other [employer] Other Start: 08-01-2022 Registered Recurring DO Kalie Kasper Work Phone: [facility] Work Phone: Start: 07-22-2022 End: 07-22-2022 ambulatory Lili Scally Other [employer] Other Start: 07-22-2022 Telephone encounter Lili Aubrey [facility] Start: 07-09-2022 End: 07-09-2022 ambulatory Lili Airamly Other [employer] Other Start: 07-09-2022 Telephone encounter Lili Aubrey Bello [facility] Start: 07-01-2022 End: 07-02-2022 [facility] Facility:H1 Start: 06-20-2022 End: 06-21-2022 [facility] Facility:H1 Start: 06-16-2022 End: 06-16-2022 ambulatory Lili Airamly Other [employer] Other Start: 06-16-2022 Telephone encounter Lili Airamly F [facility] Start: 06-06-2022 (DM) Diabetes Lili Scally [facility] Start: 06-06-2022 End: 06-06-2022 ambulatory Lili Scally Other [employer] Other Start: 06-03-2022 End: 06-03-2022 ambulatory VELASQUEZ GAMINO . Facility:H1 Start: 05-15-2022 End: 05-16-2022 ambulatory [facility] Facility:[facility] Start: 05-13-2022 End: 05-13-2022 ambulatory Lili Airamly Other [employer] Other Start: 05-13-2022 Telephone encounter Lili Scally F [facility] Start: 04-14-2022 End: 04-14-2022 ambulatory Lili Scally Other [employer] Other Start: 04-14-2022 Telephone encounter Lili Scally F [facility] Start: 04-03-2022 End: 04-03-2022 ambulatory Lili Scally Other [employer] Other Start: 04-03-2022 Telephone encounter Lili Scally [facility] Start: 03-24-2022 End: 03-24-2022 ambulatory Lili Scally Other [employer] Other Start: 03-24-2022 Telephone encounter Lili Scally [facility] Start: 03-21-2022 End: 03-21-2022 ambulatory Lili Scally Other [employer] Other Start: 03-21-2022 Telephone encounter Lili Scally F [facility] Start: 03-06-2022 (DM) Diabetes Lili Scally [facility] Start: 03-06-2022 End: 03-07-2022 ambulatory [facility] [employer] Other Start: 02-13-2022 End: 02-14-2022 [facility] Facility:H1 Start: 12-31-2021 End: 12-31-2021 ambulatory Lili Scally Other [employer] Other Start: 12-31-2021 Telephone encounter Lili Airamly Ace [facility] [facility] Start: 12-11-2021 [facility] Facility: Start: 11-20-2021 End: 11-20-2021 ambulatory Lili Airamly Other [employer] Other Start: 11-20-2021 Telephone encounter Lili Airamly Ace [facility] Start: 11-06-2021 End: 11-07-2021 [facility] Facility: Start: 10-28-2021 (DM) Diabetes Lili Airamly [facility] Start: 10-28-2021 End: 10-28-2021 ambulatory Lili Airamly Other [employer] Other Start: 09-20-2021 End: 09-20-2021 ambulatory Lili Scally Other [employer] Other Start: 09-20-2021 Telephone encounter Lili Airamly F [facility] Start: 09-12-2021 End: 09-12-2021 ambulatory Lili Scally Other [employer] Other Start: 09-12-2021 Telephone encounter Lili Airamly F [facility] Start: 08-01-2021 End: 08-02-2021 [facility] Facility: Start: 07-22-2021 End: 07-22-2021 ambulatory Lili Scally Other [employer] Other Start: 07-22-2021 Telephone encounter Lili Airamly F [facility] Start: 07-08-2021 End: 07-08-2021 ambulatory Lili Scally Other [employer] Other Start: 07-08-2021 Telephone encounter Lili [facility] Start: 07-04-2021 (DM) Diabetes Lili Sequeira [facility] Start: 07-04-2021 End: 07-04-2021 ambulatory Llii Burgos Other [employer] Other Start: 06-20-2021 End: 06-20-2021 ambulatory Clifford Garciadiff Other [employer] Other Start: 06-20-2021 Telephone encounter Clifford Tammy Ace [facility] Start: 04-19-2021 End: 04-19-2021 ambulatory Clifford Munoz Other [employer] Other Start: 04-19-2021 Telephone encounter Clifford Tammy Ace krystlekatya [facility] Start: 03-28-2021 End: 03-28-2021 ambulatory Clifford Munoz Other [employer] Other Start: 03-28-2021 Telephone encounter Clifford Tammy Ace [facility]iff [facility] Start: 01-29-2021 End: 01-29-2021 ambulatory Clifford Munoz Jr. Other [employer] Other Start: 01-29-2021 Telephone encounter Clifford Christian [facility] Start: 11-27-2020 Telephone encounter Clifford Christian [facility] Start: 11-21-2020 (DM) Diabetes Clifford Munoz Jr. [facility] Start: 09-25-2016 End: 09-26-2016 Ambulatory QUE BLAKE Facility:[facility] Start: 09-20-2016 End: 09-20-2016 Emergency department patient visit LAUREN CARDENAS Facility:[facility] Start: 09-08-2016 End: 09-15-2016 Evaluation and management of inpatient QUE BLAKE Facility:[facility] Procedures Date Procedure Procedure Detail Performing Clinician Start: 03-10-2024 XR pre/post mri xray Pastora Jose F [facility] Work Phone: Start: 03-10-2024 MRI of right shoulder Pastora Fitelizabeth das [employer] Work Phone: Start: 12-29-2023 Arthrocentesis aspir&/inj interm jt/burs w/o us Lauren HILL Work Phone: Start: 12-29-2023 Radex shoulder complete minimum 2 views Lauren HILL Work Phone: Start: 09-15-2023 Mammography Lauren HILL Work Phone: Start: 07-28-2023 H/O: section History of 3 sections Alexandra Osorio NP Work Phone: Start: 06-15-2023 Microscopic observation [Identifier] [...] Activity Detail Author Start: 06-14-2028 Screening for malignant neoplasm of cervix [facility] Start: 06-14-2026 Screening for malignant neoplasm of cervix Pap smear [facility] Start: 05-04-2025 Glaucoma screening Diabetes: Retinopathy Screening [facility] Start: 03-01-2025 Urine screening for protein Diabetes: Urine Protein Screening [facility] Start: 09-14-2024 Screening for malignant neoplasm of breast Mammogram [facility] Start: 07-01-2024 End: 07-01-2024 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 procedure 07/01/2024 10:00 AM EDT Office Visit [facility] [address] [place] [phone] Lauren Torres, PA [address] [facility] [address] [place] [address] [facility] Start: 06-28-2024 Hemoglobin A1c measurement A1C test (Diabetic or Prediabetic) [facility] Start: 06-28-2024 Lipid panel Lipids [facility] Start: 06-02-2024 Adult BMI Screening Adult BMI Screening [facility] Start: 06-02-2024 Tobacco Screening Tobacco Screening [facility] Start: 05-31-2024 End: 05-31-2024 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 procedure 05/31/2024 2:30 PM EDT Office Visit [facility] [address] [place] [phone] Lauren Torres, PA [address] [facility] [address] [place] [address] [facility] Start: 05-13-2024 Medicare Annual Wellness (AWV) Medicare Annual Wellness (AWV) [facility] Start: 05-04-2024 Hemoglobin A1c measurement Diabetes: Hemoglobin A1C [facility] Start: 04-26-2024 End: 04-26-2024 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 procedure 04/26/2024 8:45 AM EDT Office Visit [facility] [address] [place] [phone] Jr. Rica Rodriguez DO [address] [facility] [address] [place] [address] [facility] Start: 04-21-2024 Urine screening for protein Diabetes: Urine Protein Screening [facility] Start: 04-12-2024 End: 04-12-2025 XR Chest 2 Views [facility] Work Phone: Comment on above: Expected: 04/12/2024, Expires: Start: 04-12-2024 End: 04-12-2024 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 procedure 04/12/2024 11:00 AM EST Office Visit [facility] [address] [facility] [place] [phone] Alexandra Osorio NP [address] [facility] [place], [place] [id number] Arrived [facility] Comment on above: Arrived Start: 03-23-2024 End: 03-23-2024 ambulatory 03/23/2024 9:00 AM EST Evaluation [facility] [address] [facility] [place] [phone] Sean León, PT [address] [facility] [place] [address] Biceps tendinitis, right [facility] Comment on above: Biceps tendinitis, right Start: 03-18-2024 End: 03-18-2024 ambulatory 03/18/2024 2:00 PM EST Evaluation [facility] [address] [facility] [place] [phone] Sean León, PT [address] [facility] [place] [address] [facility] Start: 03-16-2024 End: 03-16-2024 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 procedure [facility] Comment on above: Acute pain of right shoulder (Primary Dx ); Arthritis of right acromioclavicular joint; Biceps tendinitis, right Start: 03-05-2024 End: 03-05-2024 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 procedure 03/05/2024 9:00 AM EST Office Visit [facility] [address] [place] [phone] Alexandra Osorio NP [address] [place] [address] Arrived [facility] Comment on above: Arrived Start: 03-03-2024 End: 03-03-2024 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 procedure 03/03/2024 9:30 AM EST Office Visit [facility] [address] [place] [phone] Alexandra Osorio NP [address] [place] [address] [facility] Start: 03-02-2024 End: 03-02-2024 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 procedure 03/02/2024 9:30 AM EST Office Visit [facility] [address] [place] [phone] Jr. Rica Rodriguez DO [address] [place] [address] [facility] Start: 02-29-2024 End: 02-29-2024 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 procedure 02/29/2024 4:30 PM EST Office Visit [facility] [address] [place] [phone] Alexandra Osorio NP [address] [place] [address] Arrived [facility] Comment on above: Arrived Start: 02-23-2024 End: 02-23-2024 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 procedure 02/23/2024 10:00 AM EST Office Visit [facility] [address] [place] [phone] Lauren Torres, PA [address] [place] [address] [facility] Start: 01-26-2024 End: 01-26-2024 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 procedure 01/26/2024 10:15 AM EST Office Visit [facility] [address] [place] [phone] Lauren Torres PA [address] [facility] [address] [place] [address] Acute pain of right shoulder (Primary Dx); Arthritis of right acromioclavicular joint [facility] Comment on above: Acute pain of right shoulder (Primary Dx ); Arthritis of right acromioclavicular joint Start: 01-22-2024 End: 01-22-2024 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 procedure 01/22/2024 10:15 AM EST Office Visit [facility] [address] [place] [phone] Lauren Torres PA [address] [facility] [address] [place] [address] [facility] Start: 01-19-2024 End: 01-19-2024 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 procedure 01/19/2024 11:30 AM EST Office Visit [facility] [address] [place] [phone] Pastora Kohler NP [address] [place] [address] Arrived [facility] Comment on above: Arrived Start: 12-11-2023 End: 12-11-2023 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 procedure [facility] Comment on above: Acute pain of left knee (Primary Dx) Start: 11-20-2023 End: 11-20-2023 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 procedure 11/20/2023 9:00 AM EDT Office Visit [facility] [address] [place] [phone] Lauren Torres PA [address] [facility] [address] [place] [address] Acute pain of left knee (Primary Dx) [facility] Comment on above: Acute pain of left knee (Primary Dx) Start: 10-18-2023 Influenza vaccination [facility] Start: 10-16-2023 Hemoglobin A1c measurement Diabetes: Hemoglobin A1C [facility] Start: 06-30-2023 End: 06-30-2023 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 procedure 06/30/2023 8:30 AM EDT Office Visit Liz Deal [facility] [address] [place] [address] Nishi Pradhan PA [address] [facility] [address] [place] [address] [facility] Start: 06-15-2023 End: 06-15-2023 Admission to same day surgery center 06/15/2023 2:00 PM EDT - 06/15/2023 4:30 PM EDT Surgery [address] [phone] Edwin Moreno MD [address] [facility] [place] [address] DAVINCI HYSTERECTOMY SAL[facility] OOPHORECTOMY [facility] Comment on above: DAVINCI HYSTERECTOMY SALPINGO OOPHORECTO MY Start: 06-15-2023 End: 06-15-2023 DAVINCI DISSECTION LYMPH NODE PELVIC SENTINEL DAVINCI DISSECTION LYMPH NODE PELVIC SENTINEL ENDOMETRIAL CANCER 06/15/2023 2:00 PM EDT [facility] Start: 06-15-2023 End: 06-15-2023 DAVINCI HYSTERECTOMY SALPINGO OOPHORECTOMY DAVINCI HYSTERECTOMY SALPINGO OOPHORECTOMY ENDOMETRIAL CANCER 06/15/2023 2:00 PM EDT [facility] Start: 06-15-2023 Subsequent hospital visit by physician 06/15/2023 2:00 PM EDT Hospital Encounter [facility] Surgery [address] [place] [phone] Edwin Moreno MD [address] [facility] [place] [address] [facility] Start: 06-05-2023 End: 06-05-2023 Admission to establishment 06/05/2023 2:45 PM EDT Support Visit [facility] On [address] [phone] [facility] Start: 02-16-2023 Annual Wellness Visit (Medicare Advantage) Annual Wellness Visit (Medicare Advantage) [facility] Start: 01-16-2023 COVID-19 Vaccine ( season) COVID-19 Vaccine ( season) [facility] Start: 10-30-2022 [facility] Start: 10-30-2022 Computerized axial tomography of lumbar spine with contrast [facility] Start: 02-14-2021 Screening for malignant neoplasm of breast Breast cancer screen [facility] Start: 2020 Respiratory Syncytial Virus (RSV) or age 60 yrs+ (1 - 1-dose 60+ series) Respiratory Syncytial Virus (RSV) or age 60 yrs+ (1 - 1-dose 60+ series) [facility] Start: 2010 Administration of varicella zoster vaccine Zoster (Shingles) Vaccine (1 of 2) [facility] Start: 2010 Shingles vaccine (1 of 2) Shingles vaccine (1 of 2) [facility] Start: 2005 Screening for malignant neoplasm of colon [facility] Start: 1981 Screening for malignant neoplasm of cervix Pap Smear [facility] [employer] [facility] Start: 1979 Administration of varicella zoster vaccine Zoster (Shingles) Vaccine (1 of 2) [facility] Start: 1979 DTaP,Tdap and Td Vaccines (1 - Tdap) DTaP,Tdap and Td Vaccines (1 - Tdap) [facility] Start: 1979 DTaP/Tdap/Td vaccine (1 - Tdap) DTaP/Tdap/Td vaccine (1 - Tdap) [facility] Start: 1979 Urine screening for protein Diabetes: Urine Protein Screening [facility] Start: 1978 Adult BMI Follow Up Plan Adult BMI Follow Up Plan [facility] Start: 1978 GFR test (Diabetes, CKD 3-4, OR last GFR 15-59) GFR test (Diabetes, CKD 3-4, OR last GFR 15-59) [facility] Start: 1978 Glaucoma screening Diabetic retinal exam [facility] Start: 1978 Hepatitis C screening Hepatitis C screen [facility] Start: 1978 Urine screening for protein Diabetic Alb to Cr ratio (uACR) test [facility] Start: 1975 HIV screening HIV screen [facility] Start: 1972 Depression Monitoring Depression Monitoring [facility] Start: 1972 Depression Screening Depression Screening [facility] Start: 1970 Diabetic foot examination Diabetic foot exam [facility] Start: 1966 Pneumococcal 0-64 years Vaccine (1 of 2 - PCV) Pneumococcal 0-64 years Vaccine (1 of 2 - PCV) [facility] Start: 1960 Screening for malignant neoplasm of colon [facility] Comprehensive metabo lic 2000 panel - Serum or Plasma [facility] Oxygen therapy [[facility] Data Set] Initiate Oxygen Therapy Protocol Respiratory Care Routine As Needed until discontinued starting 06/30/2023 [facility] Comment on above: As Needed until discontinued starting Oxygen therapy [[facility] Data Set] Initiate Oxygen Therapy Protocol Respiratory Care Routine As Needed until discontinued starting 06/30/2023 [facility] Comment on above: As Needed until discontinued starting Patient Education [facility] Work Phone: End: 06-26-2023 Percutaneous coronary intervention [facility] Work Phone: Comment on above: One Time for 1 Occurrences starting 06/16 until 06/26/2023 XR Hip - left 3 Views XR hip lef t 2 or 3 views Imaging Routine Left hip pain 11/20/2023 9:24 AM EDT [facility] XR Knee - left 1 or 2 Views XR knee 1 or 2 views left Imaging Routine Acute pain of left knee 11/20/2023 9:05 AM EDT [facility] Work Phone: [facility] Immunizations Immunization Date Immunization Notes Care Provider Fa cili 11-21-2022 influenza virus vaccine, unspecified formulation Edwin Moreno MD Work Phone: [facility] 11-21-2022 influenza, injectabl e, quadrivalent, preservative free Lauren HILL Work Phone: [facility] 11-21-2022 SARS-COV-2 (COVID-19 ) vaccine, mRNA, spike protein, LNP, PF, 50 mcg/0.5 mL Lauren HILL Work Phone: [facility] 02-26-2022 influenza virus vaccine, unspecified formulation Piotr Logan MD Work Phone: [facility] 02-26-2022 influenza, injectabl e, quadrivalent, preservative free Lauren HILL Work Phone: [facility] 06-12-2020 COVID-19 Vaccine Moderna - Documentation Purposes Only Clifford Munoz Jr. Other [facility] 05-15-2020 COVID-19 Vaccine Moderna - Documentation Purposes Only Clifford Munoz Jr. Other [facility] 12-09-2016 influenza virus vaccine, unspecified formulation Piotr Logan MD Work Phone: [facility] 12-09-2016 influenza, injectabl e, quadrivalent, preservative free Lauren HILL Work Phone: [facility] 10-17-2016 influenza virus vaccine, unspecified formulation Piotr Logan MD Work Phone: [facility] 01-03-2015 influenza virus vaccine, unspecified formulation Piotr Logan MD Work Phone: [facility] 01-03-2015 influenza, seasonal, injectable, preservative free Lauren HILL Work Phone: [facility] 01-03-2014 influenza virus vaccine, unspecified formulation Piotr Logan MD Work Phone: [facility] 01-03-2014 influenza, seasonal, injectable Lauren HILL Work Phone: [facility] Healthcare Payers Date Payer Category Payer Self-pay [id number] 2022 Medicare (Managed Care) [employer] [id number] 2022 Unknown [employer] AARP O PTUMCARE AARP [id number] 2022-Present [address] [place] [id number] .7.3.492839.315 2021 Unknown [id number] 2021 Medicare [id number]. 1.13.424.2 .7.3.456912.315 2017 Medicare [id number] 2.16.840.1.517918.19 1960 Unknown [id number] 2.16.840.1.211319.3.579.2 .593 1960 Unknown [id number] 2.16.840.1.015673.3.579.2 .593 1960 Unknown [id number] 2.16.840.1.405077.3.579.2 .593 1960 Unknown [id number] 2.16.840.1.229730.3.579.2 .593 1960 Unknown [id number] 2.16.840.1.401815.3.579.2 .593 1960 Unknown [id number] 2.16.840.1.680514.3.579.2 .593 1960 Unknown [id number] 2.16.840.1.291230.3.579.2 .593 1960 Unknown [id number] 2.16.840.1.146331.3.579.2 .593 1960 Unknown [id number] 2.16.840.1.992641.3.579.2 .593 1960 Unknown [id number] 2.16.840.1.207125.3.579.2 .1286 1960 Unknown [id number] 2.16.840.1.722388.3.579.2 .173 1960 Unknown [id number] 2.16.840.1.296486.3.579.2 .1286 1960 Unknown [id number] 2.16.840.1.211521.3.579.2 .1286 1960 Unknown [id number] 2.16.840.1.636225.3.579.2 .1286 1960 Unknown [id number] 2.16.840.1.813092.3.579.2 .1286 1960 Unknown [id number] 2.16.840.1.015061.3.579.2 .1286 1960 Unknown [id number] 2.16.840.1.468293.3.579.2 .1286 1960 Unknown [id number] 2.16.840.1.941594.3.579.2 .1286 1960 Unknown [id number] 2.16.840.1.420866.3.579.2 .1286 1960 Unknown [id number] 2.16.840.1.297460.3.579.2 .175 1960 Unknown [id number] 2.16.840.1.901491.3.579.2 .175 1960 Unknown [id number] 2.16.840.1.013188.3.579.2 .175 1960 Unknown [id number] 2.16.840.1.586052.3.579.2 .175 1960 Unknown [id number] 2.16.840.1.035990.3.579.2 .175 1960 Unknown [id number] 2.16.840.1.441740.3.579.2 .175 1960 Unknown [id number] 2.16.840.1.791621.3.579.2 .175 1960 Unknown [id number] 2.16.840.1.184995.3.579.2 .175 1960 Unknown [id number] 2.16.840.1.023096.3.579.2 .175 1960 Unknown [id number] 2.16.840.1.963489.3.579.2 .175 1960 Unknown [id number] 2.16.840.1.622519.3.579.2 .1259 1960 Unknown [id number] 2.16.840.1.022909.3.579.2 .1259 1960 Unknown [id number] 2.16.840.1.546846.3.579.2 .1259 1960 Unknown [id number] 2.16.840.1.599197.3.579.2 .1258 1960 Unknown [id number] 2.16.840.1.093186.3.579.2 .1258 1960 Unknown [id number] 2.16.840.1.453499.3.579.2 .1258 1960 Unknown [id number] 2.16.840.1.247044.3.579.2 .1258 1960 Unknown [id number] 2.16.840.1.168330.3.579.2 .1258 1960 Unknown [id number] 2.16.840.1.566103.3.579.2 .1258 1960 Unknown [id number] 2.16.840.1.568317.3.579.2 .1258 1960 Unknown [id number] 2.16.840.1.892988.3.579.2 .1258 1960 Unknown [id number] 2.16.840.1.406247.3.579.2 .1258 1960 Unknown [id number] 2.16.840.1.501405.3.579.2 .1258 1960 Unknown [id number] 2.16.840.1.880587.3.579.2 .1258 1960 Unknown [id number] 2.16.840.1.003064.3.579.2 .1258 1960 Unknown [id number] 2.16.840.1.644449.3.579.2 .1258 1960 Unknown [id number] 2.16.840.1.557993.3.579.2 .1258 1960 Unknown [id number] 2.16.840.1.539434.3.579.2 .1258 1960 Unknown [id number] 2.16.840.1.244758.3.579.2 .1259 1959 Medicare [id number] 2.16.840.1.075601.19 1959 Private Health Insurance [id number] Medicare [id number] 2..840.1.335573.19 Unknown Alexis MOSER/ [id number] Unknown [id number] 2.16.840.1.783373.3.579.2 .531 Unknown [id number] 2.16840.1.221665.3.579.2 .531 Unknown [id number] 2.16.840.1.251151.3.579.2 .531 Social History Date Type Detail Facility Unknown if ever smoked [facility] Other Start: 05-14-2023 End: 06-15-2023 Sex Assigned At [facility] Work Phone: Start: 01-03-2021 End: 06-03-2023 Tobacco smoking status DEIS Ex-smoker (finding) [facility] Start: 1960 Sex Assigned At Female [facility] End: 06-20-2010 History of tobacco use Current smoker [facility] End: 06-20-2010 History of tobacco use Cigarette Smoker [facility] Start: 11-03-2022 End: 06-15-2023 Tobacco use and exposure Smokeless tobacco non-user [facility] Start: 06-30-2023 End: 04-12-2024 Alcohol intake Ex-drinker (finding) [facility] Start: 05-14-2023 End: 06-15-2023 History of Social function [facility] Work Phone: Start: 1960 Sex Assigned At Not on file [facility] Start: 11-03-2022 Tobacco smoking status DEIS Never smoked tobacco [facility] Start: 10-30-2022 Alcohol Comment caffeine: 3-4 cups per day [facility] Start: 12-30-2023 End: 03-11-2024 Sex Female (finding) [facility] Start: 06-03-2023 Alcoholic beverage intake Lifetime non-drinker (finding) [facility] Start: 04-12-2024 Alcohol Comment caffeine: 2 cu ps per day [facility] NEGATED: Highlighted rowStart: NINF History of tobacco use Passive smoker [facility] Medical Equipment Procedure Code Equipment Code Equipment Origin al Text Equipment Identifier Dates Arthroplasty, knee, total, minimally invasive Orthopaedic cement, non-medicated [id number] FDA Start: 01-03-2021 Arthroplasty, knee, total, minimally invasive Uncoated knee femur prosthesis ()[id number] FDA Start: 01-03-2021 Arthroplasty, knee, total, minimally invasive Tibial insert ()[id number] FDA Start: 01-03-2021 Arthroplasty, knee, total, minimally invasive Polyethylene patella prosthesis ()[id number] FDA Start: 01-03-2021 Arthroplasty, knee, total, minimally invasive Uncoated knee tibia prosthesis, metallic ()[id number] FDA Start: 01-03-2021 [id number] Start: 01-29-2021 Blood Sugar Diagnostic (Accu-Chek Guide Test Strips) strip Start: 05-06-2023 Blood Sugar Diagnostic (Accu-Chek Guide Test Strips) strip Start: 05-06-2023 End: 05-06-2023 Blood Sugar Diagnostic (Accu-Chek Guide Test Strips) strip Start: 05-06-2023 Blood Sugar Diagnostic (Accu-Chek Guide Test Strips) strip Start: 05-06-2023 End: 05-06-2023 Blood Sugar Diagnostic (Accu-Chek Guide Test Strips) strip Start: 08-03-2023 Lancets (Accu-Ch ek Fastclix Lancet Drum) mis Start: 08-03-2023 Blood Sugar Diagnostic (Accu-Chek Guide [...] 08-03-2023 End: 08-03-2023 Clinical Notes 11-21-2020 to 04-26-2024 Jr. Rica Rodriguez, - 04/26/2024 8:45 AM EDTTelephone Encounter - Lalitha Ronnie, FARM SPECIALIST - 04/18/2024 2:11 PM ESTTelephone Encounter - Lalitha Ronnie, FARM SPECIALIST - 04/18/2024 2:11 PM EST Note Date & Type Note Facility 04-26-2024 History of Present illness Narrative Images from the original note were not included. HISTORY OF PRESENT ILLNESS: EST PT Lesli Clay is an 64 y.o. @ female. (EST PT) - RT SHOULDER PAIN (~5 MONTHS) (NOV 2023) S/P PT VISIT X 1 WITH INSTRUCTION ON HEP- NO IMPROVEMENT WITH HEP, MAKES PAIN WORSE. XRAY RT SHOULDER EPIC 12/29/23 MRI (03/10/24) CORTISONE INJX (AC) 12/29/23 NO MDP/PREDNISONE PT (1 VISIT WITH INSTRUCTION ON HEP) PAIN MANAGEMENT @[facility] NO IMPROVEMENT. PAIN LATERAL AND ANTERIOR SHOULDER. STATES IT CAN BE DIFFUSE. CAN RADIATE DOWN ARM. DIFFICULTY PUTTING COAT ON AND OFF. +PERCOCET (PAIN MGMT) AND ADVIL PRN. +BENGAY. DENIES N/T. +GRINDING. LIMITED AND PAINFUL ROM. +WAKES AT HS. +INTERMITTENT BURNING. PT IS RT HAND DOMINANT S/P LT TKA 01/03/[address] RODRIGUEZ HX RT TKA PER DR BLAKE. HX LT MF TRIGGER FINGER RELEASE PER DR RODRIGUEZ 08/22/21 ALLERGIES: No Known Allergies HOME MEDICATIONS: Current Outpatient Medications Medication Instructions Accu-Chek FastClix Lancets misc USE DIRECTED TWICE DAILY Accu-Chek Guide test strip USE DIRECTED TWICE DAILY albuterol HFA 90 mcg/act inhaler 2 puffs, Inhalation, Every 4 hours PRN ALPRAZolam (Xanax) 0.5 MG tablet daily as needed ARIPiprazole (Abilify) 15 MG tablet Every 24 hours atorvastatin (LIPITOR) 40 mg, Oral, Daily buPROPion XL (Wellbutrin XL) 300 MG 24 hr tablet daily diazePAM (Valium) 5 MG tablet 1 tab 30-60 mins before procedure may repeat X1 if need for claustrophobia ergocalciferol (Vitamin D2) 1.25 MG (55133 UT) capsule TAKE 1 CAPSULE BY MOUTH [...] Ecchymosis: none Peripheral edema: none Atrophy: none Deformity: AC joint prominence Masses: none Prior incision: arthroscopic portals Incision: well-healed Palpation Right Crepitus: mild Increased warmth: none Tenderness: present Anterior shoulder: mild Posterior shoulder: mild Clavicle: mild AC joint: moderate Rotator cuff: moderate Greater tuberosity: mild Trapezius: mild Medial scapula: none Superior pole of scapula: none Proximal biceps: none Distal biceps: none Lateral arm: moderate Elbow: none Range of Motion Right Right shoulder range of motion is normal. Active ROM: pain. Passive ROM: pain. Active forward elevation: 130. Passive forward elevation: 160. Shoulder active abduction: 130 (+ pain passing 90 degrees). Passive abduction: 160. Active external rotation at side: 70. Passive external rotation at side: 70. Internal rotation: L5. Strength Right External rotation: 4-/5. External rotation is affected by pain. Internal rotation: 5/5. Abduction: 4-/5. Abduction is affected by pain. Biceps: 5/5. Triceps: 5/5. Neurovascular Right Radial pulse: normal and 2+ Capillary refill: <3 sec Axillary nerve sensory distribution: normal Scapula Right Right shoulder scapula is normal. Position: normal Winging: none Special Tests Right Rotator Cuff Signs Neer's test: positive Haro test: positive Painful arc test: positive Biceps/tyler Signs Speed's test: negative AC Joint Signs Active horizontal adduction pain: positive Single finger test: positive General Constitutional: appears stated age Neurological: alert and oriented x3 Vitals: There is no height or weight on file to calculate BMI. Tobacco Use: Low Risk (04/12/2024) Patient History Smoking Tobacco Use: Never Smokeless Tobacco Use: Never Passive Exposure: Not on file Recent Concern: Tobacco Use - Medium Risk (04/11/2024) Received from [facility] Patient History Smoking Tobacco Use: Former Smokeless Tobacco Use: Never Passive Exposure: Never Alcohol Use: Not on file IMAGING: Procedures No orders of the defined types were placed in this encounter. ASSESSMENT: ICD-10-CM 1. Acute pain of right shoulder M25.511 2. Arthritis of right acromioclavicular joint M19.011 3. Biceps tendinitis, right M75.21 4. Partial nontraumatic tear of rotator cuff, right M75.111 PLAN: Patient's symptoms are worse. We have recommended surgical intervention for rotator cuff tear or biceps tendinitis and impingement syndrome right shoulder. Patient is in agreement with this and fully understands said treatment. We have discussed both surgical and nonsurgical treatment options with the patient and the risks and benefits associated with both. The patient is requesting surgical intervention because the patient's symptoms were affecting the patient's activities of daily living and ability to sleep. The patient's symptoms were unresponsive to outpatient treatment options. After lengthy discussions involving but not limited to both surgical and nonsurgical treatment options the patient has requested surgical intervention and we will see them back on the day of surgery. The patient understands the risks of said treatment. Questions answered in laymen terms at the bedside. The diagnosis, home exercise plan and any ongoing restrictions/ recommendations reviewed. If unable to be reached in office, I recommend evaluation at nearest Emergency Room if any symptoms worsened or new symptoms develop for requiring urgent evaluation. documented in this encounter [facility] 04-18-2024 Telephone encounter Note Can you please get her schedule for DM appointment next week, she is due to have her A1c rechecked [facility] Work Phone: 04-18-2024 Miscellaneous Notes Can you please get her schedule for DM appointment next week, she is due to have her A1c rechecked documented in this encounter [facility] 04-12-2024 History of Present illness Narrative Images from the original note were not included. Lesli Clay is a 64 y.o. female presents with chief complaint of URI HPI: HPI History of Present Illness The patient presents for evaluation of upper respiratory symptoms and elevated blood pressure. She has been experiencing a gradual onset of symptoms over the past few weeks, initially presenting as nasal congestion before progressing to chest involvement. She reports the production of green phlegm and a sore throat, which is exacerbated during swallowing. She also reports shortness of breath but does not experience any associated pressure. She has an inhaler at home from a previous illness but is unable to locate it. She has no history of asthma. She has been self-medicating with azhl-hzg-pqtvejk cough and cold medications but did not take any such medication yesterday. Her blood pressure was recorded as 232/109 during a recent visit to her senior corporate strategy manager in [place], prompting a recheck post-examination, which yielded a reading of 190/98. She has a home blood pressure monitor but does not use it regularly. She confirms adherence to her antihypertensive medication regimen yesterday. SUBJECTIVE: MEDICATIONS: ALLERGIES Current Outpatient Medications Medication Instructions Accu-Chek FastClix Lancets misc USE DIRECTED TWICE DAILY Accu-Chek Guide test strip USE DIRECTED TWICE DAILY albuterol HFA 90 mcg/act inhaler 2 puffs, Inhalation, Every 4 hours PRN ALPRAZolam (Xanax) 0.5 MG tablet daily as needed ARIPiprazole (Abilify) 15 MG tablet Every 24 hours atorvastatin (LIPITOR) 40 mg, Oral, Daily buPROPion XL (Wellbutrin XL) 300 MG 24 hr tablet daily diazePAM (Valium) 5 MG tablet 1 tab 30-60 mins before procedure may repeat X1 if need for claustrophobia ergocalciferol (Vitamin D2) 1.25 MG (21703 UT) capsule TAKE 1 CAPSULE BY MOUTH [...] times daily tiZANidine (Zanaflex) 4 MG tablet No Known Allergies PAST MEDICAL HISTORY: SOCIAL HISTORY SURGICAL HISTORY: Past Medical History: Diagnosis Date Abdominal pain Anxiety Cellulitis R foot 08/2016 COVID 02/2020 DENIES BLOODBORNE DX Depression (CMS/HCC) Diabetes (CMS/HCC) GERD (gastroesophageal reflux disease) HTN (hypertension) (CMS/HCC) Hyperlipidemia (CMS/HCC) Osteoarthritis RSD (reflex sympathetic dystrophy) Social History Tobacco Use Smoking status: Never Smokeless tobacco: Never Vaping Use Vaping status: Never Used Substance Use Topics Alcohol use: Not Currently Comment: caffeine: 2 cups per day Drug use: Never Past Surgical History: Procedure Laterality Date BACK SURGERY 2016 x2 Rods and Screws at [place] SECTION, LOW TRANSVERSE x 3 DILATION AND CURETTAGE DILATION AND CURETTAGE OF UTERUS 05/22/2023 hysteroscopy with myosure LUMBAR FUSION 2010 Dr. Ken NECK SURGERY 2009 C5-C6 Neck - Dr. Ken [place] ARTHROSCOPY KNEE DIAGNOSTIC W/WO SYNOVIAL BX SPX Left 2011 @[place]? [place] TOTAL KNEE ARTHROPLASTY Right 10/2017 Dr. Blake ROTATOR CUFF REPAIR Left 2007 DR. RODRIGUEZ ROTATOR CUFF REPAIR Right 2009 DR. RODRIGUEZ TRIGGER FINGER RELEASE Right 04/25/2022 RT IF TRIGGER RELEASE- DR RODRIGUEZ TRIGGER FINGER RELEASE Right RT MF TRIGGER RELEASE- DR RODRIGUEZ TRIGGER FINGER RELEASE Left LT MF TRIGGER RELEASE- DR RODRIGUEZ TRIGGER FINGER RELEASE Right 12/12/[address] Rodriguez REVIEW OF SYMPTOMS: Review of Systems Constitutional: Positive for fatigue. Negative for fever. HENT: Positive for congestion, rhinorrhea, sinus pain and sore throat. Respiratory: Positive for cough, shortness of breath and wheezing. Cardiovascular: Negative for chest pain, palpitations and leg swelling. Gastrointestinal: Negative for abdominal pain. OBJECTIVE: Vitals: 04/12/24 1047 Temp: 96.2 F Physical Exam Vitals and nursing note reviewed. Constitutional: Appearance: Normal appearance. HENT: Head: Normocephalic and atraumatic. Right Ear: A middle ear effusion is present. Left Ear: A middle ear effusion is present. Nose: Congestion present. Right Turbinates: Swollen. Left Turbinates: Swollen. Right Sinus: Maxillary sinus tenderness present. Left Sinus: Maxillary sinus tenderness present. Mouth/Throat: Pharynx: Uvula midline. Posterior oropharyngeal erythema present. Eyes: Extraocular Movements: Extraocular movements intact. Pupils: Pupils are equal, round, and reactive to light. Cardiovascular: Rate and Rhythm: Normal rate and regular rhythm. Heart sounds: Normal heart sounds, S1 normal and S2 normal. Pulmonary: Effort: Pulmonary effort is normal. Breath sounds: Wheezing present. Musculoskeletal: Cervical back: Normal range of motion. Lymphadenopathy: Cervical: No cervical adenopathy. Skin: General: Skin is warm and dry. Capillary Refill: Capillary refill takes less than 2 seconds. Neurological: Mental Status: She is alert and oriented to person, place, and time. ASSESSMENT AND PLAN: Assessment/Plan Diagnoses and all orders for this visit: Type 2 diabetes mellitus with diabetic mononeuropathy, with long-term current use of insulin ([facility]) SOB (shortness of breath) - XR chest 2 views; Future Wheezing - XR chest 2 views; Future Poorly-controlled hypertension Assessment & Plan 1. Upper respiratory symptoms. Given the duration of her symptoms, it is plausible that she may have developed a bacterial infection. A chest x-ray will be ordered to exclude the possibility of pneumonia. She will be initiated on an antibiotic regimen to address the potential bacterial infection. The specific antibiotic will be determined based on the chest x-ray results. 2. Elevated blood pressure. Her blood pressure was significantly elevated at 232/109 during a recent visit to her senior corporate strategy manager. It is possible that her dmvb-yjs-pehhhca cough and cold medication, if containing DM, could have contributed to the elevation in her blood pressure. She is advised to monitor her blood pressure at home on a weekly basis and report any readings exceeding 150/90. She is also reminded to adhere to her daily antihypertensive medication regimen and maintain adequate hydration. No follow-ups on file. documented in this encounter [facility] 03-23-2024 History of Present illness Narrative Images from the original note were not included. Physical Therapy Physical Therapy Evaluation Visit Patient Name: Lesli Clay Today's Date: 03/23/2024 Encounter Diagnoses Name Primary? Biceps tendinitis, right Yes Impingement of right shoulder Visit number: 1 Subjective Lesli Clay 64 y.o. female presents to physical therapy w/ chief c/o R shoulder pain. Mechanism of Onset: no known NEGRITA or cause reported, significant pain goes back ~3 months Current deficits: pain, weakness, decreased ROM, decreased QOL Pain: mild at rest today, severe daily Location: sup/lat shoulder, down lat delt and bicep at times Aggravating Factors: reaching towards overhead, out to side, behind back, ADLs/self care, needs help from for bra Relieving factors: rest, heat, ice minimal Imaging: MRI in EMR bicep tendonitis and spurring noted Precautions: + impingement s/s with known spurring, highly irritable at IE Objective Quick DASH= 77% impaired at IE AROM R shoulder: flex to 90, abd to 70, ER min limited, IR/ext behind back to post/lat hip severely limited and painful. PROM flex to 125, abd to 90, ER WNL Strength flex and abd=3-/5, ext= 4+/5, ER/ER=4/5 painful, bicep= 4/5 painful. Posture: FW/rounded shoulders + impingement sign and testing, great difficulty relaxing. Treatment Interventions Education: HEP education with demonstration with handout and review, Educated on Eval Findings and POC, heat vs cold use x 10 min self care Manual Therapy: PROM, STM/massage, mobs prn Therapeutic Exercise: per CAYDEN grid, ROM, flexibility, strength x 15 min sup, demo and verbal cues for correct technique, fair tolerance overall Modalities: MHP/ESU for pain x 10 min IFC hi-sweep with some relief reported Assessment/Plan R shoulder pain, decreased ROM, weakness causing increased difficulty with ADLs/self care, decreased QOL Patient Goals Short Term Goal #1: pt will demo AROM WFL all planes pain free Short Term Goal #2: pt will be ind with HEP for maintenance at OK and able to avoid further intervention Pt will benefit from skilled PT to address the above impairments for 2x/week for 6 weeks. Auth after 6 visits. However pt requesting Home program only at this time due to $25.00 copay. Prognosis poor with HEP only and no formal regular PT based on presentation today. I hereby deem this POC medically necessary. Please sign below. Date: documented in this encounter [facility] 03-16-2024 History of Present illness Narrative Images from the original note were not included. HISTORY OF PRESENT ILLNESS: EST PT Lesli Clay is an 64 y.o. @ female. (EST PT) - S/P MRI (03/10/24) , HERE FOR RESULTS ; RT SHOULDER PAIN (~4 MONTHS) (NOV 2023) XRAY RT SHOULDER EPIC 12/29/23 MRI (03/10/24) CORTISONE INJX (AC) 12/29/23 NO MDP/PREDNISONE NO PT PAIN MANAGEMENT @[facility] STATES SHOULDER IS FEELING WORSE. PAIN LATERAL AND ANTERIOR SHOULDER. STATES IT CAN BE DIFFUSE. DENIES RADIATION. +PERCOCET (PAIN MGMT) AND ADVIL PRN. +BENGAY. DENIES N/T. +GRINDING. LIMITED ROM. +WAKES AT HS. +INTERMITTENT BURNING. PT IS RT HAND DOMINANT S/P LT TKA 01/03/[address] RODRIGUEZ HX RT TKA PER DR BLAKE. HX LT MF TRIGGER FINGER RELEASE PER DR RODRIGUEZ 08/22/21 ALLERGIES: No Known Allergies HOME MEDICATIONS: Current Outpatient Medications Medication Instructions Accu-Chek FastClix Lancets misc USE DIRECTED TWICE DAILY Accu-Chek Guide test strip USE DIRECTED TWICE DAILY albuterol HFA 90 mcg/act inhaler 2 puffs, Inhalation, Every 4 hours PRN ALPRAZolam (Xanax) 0.5 MG tablet daily as needed ARIPiprazole (Abilify) 15 MG tablet Every 24 hours atorvastatin (LIPITOR) 40 mg, Oral, Daily buPROPion XL (Wellbutrin XL) 300 MG 24 hr tablet daily diazePAM (Valium) 5 MG tablet 1 tab 30-60 mins before procedure may repeat X1 if need for claustrophobia ergocalciferol (Vitamin D2) 1.25 MG (05952 UT) capsule TAKE 1 CAPSULE BY MOUTH [...] Ecchymosis: none Peripheral edema: none Atrophy: none Deformity: AC joint prominence Masses: none Prior incision: arthroscopic portals Incision: well-healed Palpation Right Crepitus: mild Increased warmth: none Tenderness: present Anterior shoulder: mild Posterior shoulder: mild Clavicle: mild AC joint: moderate Rotator cuff: moderate Greater tuberosity: mild Trapezius: mild Medial scapula: none Superior pole of scapula: none Proximal biceps: none Distal biceps: none Lateral arm: moderate Elbow: none Range of Motion Right Right shoulder range of motion is normal. Active ROM: pain. Passive ROM: pain. Active forward elevation: 160. Passive forward elevation: 180. Shoulder active abduction: 160 (+ pain passing 90 degrees). Passive abduction: 160. Active external rotation at side: 70. Passive external rotation at side: 70. Internal rotation: L5. Strength Right External rotation: 4-/5. External rotation is affected by pain. Internal rotation: 5/5. Abduction: 4-/5. Abduction is affected by pain. Biceps: 5/5. Triceps: 5/5. Neurovascular Right Radial pulse: normal and 2+ Capillary refill: <3 sec Axillary nerve sensory distribution: normal Scapula Right Right shoulder scapula is normal. Position: normal Winging: none Special Tests Right Rotator Cuff Signs Neer's test: positive Haro test: positive Painful arc test: positive Biceps/tyler Signs Speed's test: negative AC Joint Signs Active horizontal adduction pain: positive Single finger test: positive General Constitutional: appears stated age Neurological: alert and oriented x3 Vitals: There is no height or weight on file to calculate BMI. Tobacco Use: Low Risk (03/16/2024) Patient History Smoking Tobacco Use: Never Smokeless Tobacco Use: Never Passive Exposure: Not on file Recent Concern: Tobacco Use - Medium Risk (01/05/2024) Received from [facility] Patient History Smoking Tobacco Use: Former Smokeless Tobacco Use: Never Passive Exposure: Not on file Alcohol Use: Not on file IMAGING: Procedures Orders Placed This Encounter Procedures Ambulatory referral to Physical Therapy 1 VISIT ONLY - TO SET UP HOME EXERCISE PROGRAM, FOR BICEP TENDONITIS & SPURRING Standing Status: Future Standing Expiration Date: 09/13/2024 Referral Priority: Routine Referral Type: Consultation Referral Reason: Consult and Treat Referred to Provider: Sean León, PT Requested Specialty: Physical Therapy Number of Visits Requested: 1 ASSESSMENT: ICD-10-CM 1. Acute pain of right shoulder M25.511 2. Arthritis of right acromioclavicular joint M19.011 3. Biceps tendinitis, right M75.21 Ambulatory referral to Physical Therapy PLAN: We have discussed her symptoms, physical exam, and MRI which shows biceps tendinitis and spurring at the acromioclavicular joint with impingement. We have recommended physical therapy one time visit. Since she pays $25 per visit to outline a home exercise program for her. We have discussed restrictions and her home exercise program. I will see her back in 6 weeks. If her symptoms persist or worsen, we may recommend a diagnostic and operative arthroscopy for partial tear of rotator cuff with impingement syndrome and biceps tendinitis. She has been injected with minimal relief. Questions answered in laymen terms at the bedside. The diagnosis, home exercise plan and any ongoing restrictions/ recommendations reviewed. If unable to be reached in office, I recommend evaluation at nearest Emergency Room if any symptoms worsened or new symptoms develop for requiring urgent evaluation. documented in this encounter [facility] 2024 Telephone encounter Note Refills sent. [facility] 2024 Miscellaneous Notes Refills sent. documented in this encounter [facility] 03-05-2024 Telephone encounter Note Please call and request her records from Lili Burgos NP at [facility] for her diabetes. [facility] 03-05-2024 Miscellaneous Notes Please call and request her records from Lili Burgos NP at [facility] for her diabetes. documented in this encounter [facility] 03-05-2024 History of Present illness Narrative Images from the original note were not included. Lesli Clay is a 63 y.o. female presents with chief complaint of Leg Swelling HPI: HPI SUBJECTIVE: MEDICATIONS: Current Outpatient Medications Medication Instructions Accu-Chek FastClix Lancets misc USE DIRECTED TWICE DAILY Accu-Chek Guide test strip USE DIRECTED TWICE DAILY albuterol HFA 90 mcg/act inhaler 2 puffs, Inhalation, Every 4 hours PRN ALPRAZolam (Xanax) 0.5 MG tablet daily as needed ARIPiprazole (Abilify) 15 MG tablet Every 24 hours atorvastatin (LIPITOR) 40 mg, Oral, Daily buPROPion XL (Wellbutrin XL) 300 MG 24 hr tablet daily cephalexin (KEFLEX) 500 mg, Oral, 4 times daily diazePAM (Valium) 5 MG tablet 1 tab 30-60 mins before procedure may repeat X1 if need for claustrophobia ergocalciferol (Vitamin D2) 1.25 MG (93483 UT) capsule TAKE 1 CAPSULE BY MOUTH [...] times daily tiZANidine (Zanaflex) 4 MG tablet I have reviewed and reconciled the history and medication list with the patient today. REVIEW OF SYMPTOMS: Review of Systems OBJECTIVE: Visit Vitals BP 124/78 Pulse 94 Resp 18 Ht 5' 2 Wt 285 lb SpO2 94% BMI 52.13 kg/m Smoking Status Never BSA 2.38 m Physical Exam ASSESSMENT AND PLAN: Assessment/Plan Lesli Clay is a 63 y.o. female presents with chief complaint of Leg Swelling HPI: HPI History of Present Illness She is here for a recheck of cellulitis on her left leg. She reports it is feeling better, and has improved as far as redness and warmth goes. She also has a rash on her neck. She reports a persistent erythematous rash on her neck, which she has been inadvertently scratching during the day. The onset of this rash was noted within the past few days. She continues to experience pruritus associated with the rash. She is not experiencing any respiratory distress, including shortness of breath or wheezing. She is under the care of an safety instructor for her diabetes management. Her most recent hemoglobin A1c level was either 7.9 or 8, indicating suboptimal glycemic control. SUBJECTIVE: MEDICATIONS: ALLERGIES Current Outpatient Medications Medication Instructions Accu-Chek FastClix Lancets misc USE DIRECTED TWICE DAILY Accu-Chek Guide test strip USE DIRECTED TWICE DAILY albuterol HFA 90 mcg/act inhaler 2 puffs, Inhalation, Every 4 hours PRN ALPRAZolam (Xanax) 0.5 MG tablet daily as needed ARIPiprazole (Abilify) 15 MG tablet Every 24 hours atorvastatin (LIPITOR) 40 mg, Oral, Daily buPROPion XL (Wellbutrin XL) 300 MG 24 hr tablet daily cephalexin (KEFLEX) 500 mg, Oral, 4 times daily diazePAM (Valium) 5 MG tablet 1 tab 30-60 mins before procedure may repeat X1 if need for claustrophobia ergocalciferol (Vitamin D2) 1.25 MG (91936 UT) capsule TAKE 1 CAPSULE BY MOUTH [...] times daily tiZANidine (Zanaflex) 4 MG tablet No Known Allergies PAST MEDICAL HISTORY: SOCIAL HISTORY SURGICAL HISTORY: Past Medical History: Diagnosis Date Abdominal pain Anxiety Cellulitis R foot 08/2016 COVID 02/2020 DENIES BLOODBORNE DX Depression (CMS/HCC) Diabetes (CMS/HCC) GERD (gastroesophageal reflux disease) HTN (hypertension) (CMS/HCC) Hyperlipidemia (CMS/HCC) Osteoarthritis RSD (reflex sympathetic dystrophy) Social History Tobacco Use Smoking status: Never Smokeless tobacco: Never Vaping Use Vaping status: Never Used Substance Use Topics Alcohol use: Not Currently Comment: caffeine: 3-4 cups per day Drug use: Never Past Surgical History: Procedure Laterality Date BACK SURGERY 2016 x2 Rods and Screws at [facility] SECTION, LOW TRANSVERSE x 3 DILATION AND CURETTAGE DILATION AND CURETTAGE OF UTERUS 05/22/2023 hysteroscopy with myosure LUMBAR FUSION 2010 Dr. Ken NECK SURGERY 2009 C5-C6 Neck - Dr. Ken [place] ARTHROSCOPY KNEE DIAGNOSTIC W/WO SYNOVIAL BX SPX Left 2011 @[facility]? [place] TOTAL KNEE ARTHROPLASTY Right 10/2017 Dr. Blake ROTATOR CUFF REPAIR Left 2007 DR. RODRIGUEZ ROTATOR CUFF REPAIR Right 2009 DR. RODRIGUEZ TRIGGER FINGER RELEASE Right 04/25/2022 RT IF TRIGGER RELEASE- DR RODRIGUEZ TRIGGER FINGER RELEASE Right RT MF TRIGGER RELEASE- DR RODRIGUEZ TRIGGER FINGER RELEASE Left LT MF TRIGGER RELEASE- DR RODRIGUEZ TRIGGER FINGER RELEASE Right 12/12/[address] Rodriguez REVIEW OF SYMPTOMS: Review of Systems Constitutional: Negative. HENT: Negative. Respiratory: Negative for cough, shortness of breath and wheezing. Cardiovascular: Negative for chest pain. Gastrointestinal: Negative for abdominal pain. Genitourinary: Negative. Musculoskeletal: Negative. Skin: Positive for rash. Neurological: Negative. OBJECTIVE: Vitals: 03/05/24 0853 BP: 124/78 Pulse: 94 Resp: 18 SpO2: 94% Physical Exam Vitals and nursing note reviewed. Constitutional: Appearance: Normal appearance. HENT: Head: Normocephalic and atraumatic. Right Ear: Tympanic membrane normal. Left Ear: Tympanic membrane normal. Nose: Nose normal. Eyes: Extraocular Movements: Extraocular movements intact. Conjunctiva/sclera: Conjunctivae normal. Pupils: Pupils are equal, round, and reactive to light. Cardiovascular: Rate and Rhythm: Normal rate and regular rhythm. Pulses: Normal pulses. Heart sounds: Normal heart sounds. Pulmonary: Effort: Pulmonary effort is normal. Breath sounds: Normal breath sounds. Musculoskeletal: Cervical back: Normal range of motion and neck supple. Skin: General: Skin is warm. Capillary Refill: Capillary refill takes less than 2 seconds. Findings: Rash (redness) present. Comments: Left lower leg is no longer red or warm, no drainage noted. Neurological: Mental Status: She is alert. Physical Exam ASSESSMENT AND PLAN: Assessment/Plan Diagnoses and all orders for this visit: Left leg cellulitis Significantly improved. Encouraged to finish all doses of antibiotic. May continue warm compresses. Type 2 diabetes mellitus with diabetic mononeuropathy, with long-term current use of insulin ([facility]) Skin rash Assessment & Plan Rash on the neck. The etiology of the rash remains uncertain, but it does not appear to be a medication-induced reaction. She has been advised to apply cortisone cream to the affected area. In the event of experiencing shortness of breath, wheezing, or neck swelling, she should seek immediate medical attention at the nearest emergency room. 2. Diabetes mellitus. Her last A1c was reported to be around 7.9 or 8, indicating suboptimal control. Records from her safety instructor will be requested to review her recent A1c levels and overall management plan. No follow-ups on file. documented in this encounter [facility] 03-02-2024 Telephone encounter Note Patient notified [facility] 03-02-2024 Miscellaneous Notes Patient notified Rx sent to pharmacy, please notify pt. She can not drive with medication and can't work after taking them.. will need a car pick up driver too and from MRI appt. Patient called asking about medication for MRI for claustrophobia. Patient states she has tried the pills for premed (possibly Xanax but she isn't sure) and they did not help her. Patient states another medication was discussed in office and she would like to try that. She uses [facility] in [place]. Her call back is [phone]. Please advise, thank you documented in this encounter [facility] 03-02-2024 Telephone encounter Note Rx sent to pharmacy, please notify pt. She can not drive with medication and can't work after taking them.. will need a car pick up driver too and from MRI appt. [facility] 03-02-2024 Telephone encounter Note Patient called asking about medication for MRI for claustrophobia. Patient states she has tried the pills for premed (possibly Xanax but she isn't sure) and they did not help her. Patient states another medication was discussed in office and she would like to try that. She uses [facility] in [place]. Her call back is [phone]. Please advise, thank you [facility] 02-29-2024 History of Present illness Narrative Images from the original note were not included. Lesli Clay is a 63 y.o. female presents with chief complaint of No chief complaint on file. HPI: HPI History of Present Illness The patient presents for evaluation of bilateral heel pain and diabetes. She reports experiencing bilateral heel pain, with the left side being more severe than the right. The onset of this pain was a few days ago, and it has been particularly intense since last night. She describes the sensation as kari to walking on hot coals when barefoot, but notes an improvement when wearing shoes. Her heels are consistently dry, but she does not regularly apply any topical treatments. She also reports persistent swelling in her feet. She has a history of cellulitis in her right foot, which required hospitalization in 08/2016. She has no history of heart failure. She is under the care of an safety instructor, Dr. Burgos, at [facility] for her diabetes management. Her last consultation was in 12/2023 or 01/2024, and she is scheduled for a follow-up visit in a few weeks. Her blood glucose levels have been well-controlled, with a reading of 126 at lunchtime. However, her most recent A1c level was elevated at 8. Supplemental Information She has a history of back issues, which limit her ability to put on and take off her socks independently. She has undergone four back surgeries and both rotator cuff surgeries in the past. She used compression stockings during her recovery period but does not currently use them, although she has some at home. She mentions that her could assist her with putting them on and taking them off. ALLERGIES The patient has no known allergies. SUBJECTIVE: MEDICATIONS: Current Outpatient Medications Medication Instructions Accu-Chek FastClix Lancets misc USE DIRECTED TWICE DAILY Accu-Chek Guide test strip USE DIRECTED TWICE DAILY albuterol HFA 90 mcg/act inhaler 2 puffs, Inhalation, Every 4 hours PRN ALPRAZolam (Xanax) 0.5 MG tablet daily as needed ARIPiprazole (Abilify) 15 MG tablet Every 24 hours atorvastatin (LIPITOR) 40 mg, Oral, Daily buPROPion XL (Wellbutrin XL) 300 MG 24 hr tablet daily ergocalciferol (Vitamin D2) 1.25 MG (33456 UT) capsule TAKE 1 CAPSULE BY MOUTH [...] times daily tiZANidine (Zanaflex) 4 MG tablet I have reviewed and reconciled the history and medication list with the patient today. REVIEW OF SYMPTOMS: Review of Systems Constitutional: Negative. HENT: Negative. Respiratory: Negative for cough, shortness of breath and wheezing. Cardiovascular: Positive for leg swelling. Negative for chest pain. Gastrointestinal: Negative for abdominal pain. Genitourinary: Negative. Musculoskeletal: Negative. Skin: Positive for color change. Neurological: Negative. OBJECTIVE: Visit Vitals BP 130/82 Pulse 78 Resp 18 Ht 5' 2 Wt 287 lb SpO2 95% BMI 52.49 kg/m Smoking Status Never BSA 2.38 m Physical Exam Vitals and nursing note reviewed. Constitutional: Appearance: Normal appearance. HENT: Head: Normocephalic and atraumatic. Right Ear: Tympanic membrane normal. Left Ear: Tympanic membrane normal. Nose: Nose normal. Eyes: Extraocular Movements: Extraocular movements intact. Conjunctiva/sclera: Conjunctivae normal. Pupils: Pupils are equal, round, and reactive to light. Cardiovascular: Rate and Rhythm: Normal rate and regular rhythm. Heart sounds: Normal heart sounds. Pulmonary: Effort: Pulmonary effort is normal. Breath sounds: Normal breath sounds. Musculoskeletal: Cervical back: Normal range of motion and neck supple. Skin: General: Skin is warm and dry. Comments: Left lower leg warm to touch and erythematous, no drainage noted Bilateral heels are scaly and peeling Neurological: Mental Status: She is alert. ASSESSMENT AND PLAN: Assessment/Plan Diagnoses and all orders for this visit: Type 2 diabetes mellitus with diabetic mononeuropathy, with long-term current use of insulin ([facility]) Symptoms are likely related to diabetic neuropathy. She does see Lili Burgos at [facility] for diabetes and had an A1C in January. Diabetic protocols reviewed. Discussed and updated current management plan. Addressed barriers to care, diet, exercise plan and blood sugar testing. Education provided for medications. Goal A1C <7 and BP <130/80 for suboptimally controlled diabetes. I have encouraged patient to check feet regularly and to see ophthomololgist annually. I have discussed the need for regular testing and follow up. We will recheck an A1C every 3 months and microalbumin yearly. Discussed complications which could include blindness, heart disease and kidney disease. Left leg cellulitis - cephalexin (Keflex) 500 MG capsule; Take 1 capsule (500 mg) by mouth in the morning and 1 capsule (500 mg) at noon and 1 capsule (500 mg) in the evening and 1 capsule (500 mg) before bedtime. Do all this for 5 days. Pt to start antibiotics as directed. Warm compresses. Monitor closely. Follow-up with PCP if no improvement or if sx worsen over the next 24-48h. Pt verbalized understanding and agreed to plan. documented in this encounter [facility] 01-26-2024 History of Present illness Narrative Images from the original note were not included. HISTORY OF PRESENT ILLNESS: EST PT Lesli Clay is an 63 y.o. @ female. EST PT: RT SHOULDER PAIN ~10 WKS- NO KNOWN INJURY- SYMPTOMS GRADUALLY INCREASED. 4 WEEKS S/P AC DEPO INJX 12/29/23 XRAY RT SHOULDER EPIC 12/29/23 NO MRI CORTISONE INJX (AC) 12/29/23 NO MDP/PREDNISONE NO PT PAIN MANAGEMENT [facility] NO RELIEF FROM INJECTION. PAIN CONTINUES LATERAL SHOULDER, STATES GETTING WORSE. CAN RADIATE DOWN ARM AND UP NECK. TAKING PERCOCET (PAIN MGMT) AND TYL. USING BENGAY. INTERMITTENT NUMBNESS IN HAND. ADMITS SWELLING IN UPPER ARM. LIMITED ROM. DENIES POPPING/GRINDING. WAKES PT AT HS. INTERMITTENT BURNING. WEAKNESS. PT IS RT HAND DOMINANT S/P LT TKA 01/03/[address] RODRIGUEZ HX RT TKA PER DR BLAKE. HX LT MF TRIGGER FINGER RELEASE PER DR RODRIGUEZ 08/22/21 ALLERGIES: No Known Allergies HOME MEDICATIONS: Current Outpatient Medications Medication Instructions Accu-Chek FastClix Lancets misc USE DIRECTED TWICE DAILY Accu-Chek Guide test strip USE DIRECTED TWICE DAILY albuterol HFA 90 mcg/act inhaler 2 puffs, Inhalation, Every 4 hours PRN ALPRAZolam (Xanax) 0.5 MG tablet daily as needed amoxicillin-clavulanate (Augmentin) 875-125 MG tablet 875 mg, Oral, 2 times daily ARIPiprazole (Abilify) 15 MG tablet Every 24 hours atorvastatin (LIPITOR) 40 mg, Oral, Daily benzonatate (TESSALON PERLES) 100 mg, Oral, 3 times daily PRN, Do not crush or chew. buPROPion XL (Wellbutrin XL) 300 MG 24 hr tablet daily ergocalciferol (Vitamin D2) 1.25 MG (46293 UT) capsule TAKE 1 CAPSULE BY MOUTH [...] Ecchymosis: none Peripheral edema: none Atrophy: none Deformity: AC joint prominence Masses: none Prior incision: arthroscopic portals Incision: well-healed Palpation Right Crepitus: mild Increased warmth: none Tenderness: present Anterior shoulder: mild Posterior shoulder: mild Clavicle: mild AC joint: moderate Rotator cuff: moderate Greater tuberosity: mild Trapezius: mild Medial scapula: none Superior pole of scapula: none Proximal biceps: none Distal biceps: none Lateral arm: moderate Elbow: none Range of Motion Right Right shoulder range of motion is normal. Active ROM: pain. Passive ROM: pain. Right shoulder active abduction: + pain passing 90 degrees. Internal rotation: L5. Strength Right External rotation: 4-/5. External rotation is affected by pain. Internal rotation: 5/5. Abduction: 4-/5. Abduction is affected by pain. Biceps: 5/5. Triceps: 5/5. Neurovascular Right Radial pulse: normal and 2+ Capillary refill: <3 sec Axillary nerve sensory distribution: normal Scapula Right Right shoulder scapula is normal. Position: normal Winging: none Special Tests Right Rotator Cuff Signs Neer's test: positive Haro test: positive Painful arc test: positive Biceps/tyler Signs Speed's test: negative AC Joint Signs Active horizontal adduction pain: positive Single finger test: positive General Constitutional: appears stated age Neurological: alert and oriented x3 Vitals: There is no height or weight on file to calculate BMI. Tobacco Use: Low Risk (01/26/2024) Patient History Smoking Tobacco Use: Never Smokeless Tobacco Use: Never Passive Exposure: Not on file Recent Concern: Tobacco Use - Medium Risk (01/05/2024) Received from [facility] Patient History Smoking Tobacco Use: Former Smokeless Tobacco Use: Never Passive Exposure: Not on file Alcohol Use: Not on file IMAGING: Procedures No orders of the defined types were placed in this encounter. ASSESSMENT: ICD-10-CM 1. Acute pain of right shoulder M25.511 2. Arthritis of right acromioclavicular joint M19.011 3. Internal derangement of right shoulder M24.811 4. History of claustrophobia Z86.59 F/U Dr. Rodriguez s/p MRI to discuss need for possible: Adin procedure. R/o re-tear of cuff with calcificic tendonitis. Surgical and non surgical tx options discussed with conservative measures reviewed. Recommend ICE/ ELEVATION, continued activity modification in interim. Pt would consider surgical intervention to possibly improve symptoms. Assessment & Plan 1. Right shoulder pain. Symptoms have progressively worsened since the last appointment, with increased weakness and pain. Range of motion is still maintained but painful. There are no signs or symptoms of infection. An MRI study was discussed, and she is agreeable to it despite being very claustrophobic. The possibility of conducting the MRI at [facility] with potential IM sedation was considered, and she is agreeable to this approach. The risks and benefits of a subacromial cortisone injection were also discussed, but she prefers to wait for the MRI results before deciding, given her persistent symptoms and lack of relief from a previous AC joint injection. Questions answered in laymen terms at the bedside. The diagnosis, home exercise plan and any ongoing restrictions/ recommendations reviewed. If unable to be reached in office, I recommend evaluation at nearest Emergency Room if any symptoms worsened or new symptoms develop for requiring urgent evaluation. documented in this encounter [facility] 01-19-2024 History of Present illness Narrative Images [...] tablet daily ergocalciferol (Vitamin D2) 1.25 MG (60629 UT) capsule TAKE 1 CAPSULE BY MOUTH [...] tomorrow in improvement. documented in this encounter [facility] 12-30-2023 Evaluation note Diagnosis Onset Date Resolution Dietary counseling and surveillance acute December 29, 024 9:39am Encounter for long-term (current) insulin use acute December 172023 9:39am Hyperlipemia acute December 9:39am Hypertension acute December 9:39am Type 2 diabetes mellitus with hyperglycemia acute December 9:39am Vitamin D deficiency, unspecified acute December 29 024 9:39am [facility] Work Phone: 1(653) 850-835711-12-2024 History of Present illness Narrative* SERGIO Iglesias - 12/29/2023 10:15 AM ESTAssociated Order(s): M Inj/Asp: R acromioclavicular Post-Procedure Diagnose(s): [...] AND UP NECK- LIMITED ROM- DIFFICULTY RAISING ABOVESHOULDER LEVEL- +WEAKNESS- CONSTANT ACHE- INCREASE PAIN WITH MOVEMENT- SOME BURNING - PT IS RT HANDDOMINANT S/P LT TKA 01/03/[address] RODRIGUEZ HX RT TKA PER DR BLAKE. HX LT MF TRIGGER FINGER RELEASE PER DR RODRIGUEZ 08/22/21 ALLERGIES: No Known Allergies HOME MEDICATIONS: [...] tablet daily ergocalciferol (Vitamin D2) 1.25 MG (86731 UT) capsule TAKE 1 CAPSULE BY MOUTH [...] Use - Medium Risk (12/10/2023) Received from [facility] Patient History Smoking Tobacco Use: Former [...] consider MRI if needed for possible open adin. Pt consenting to injection with risk and benefits discussed. Activity modification reviewed. Questions answered in laymen terms at the bedside. The diagnosis, home exercise plan and any ongoing restrictions/ recommendations reviewed. If unable to be reached in office, I recommend evaluation at nearest Emergency Room if any symptoms worsened or new symptoms develop for requiring urgent evaluation. [id number] History of Present illness Narrative* SERGIO Iglesias - 12/11/2023 10:15 AM EDT Images from the original note were not included. HISTORY OF PRESENT ILLNESS: EST PT Lesli Clay is an 63 y.o. @ female. EST PT RECHECK LT KNEE PAIN-S/P PREDNISONE 11/20/23; GOOD RELIEF - PT DID NOT GET VOLTAREN GEL S/P LT TKA 01/03/[address] RODRIGUEZ XRAY LT KNEE/LT HIP EPIC 11/20/23 XRAY EXA 10/02/21 XRAY 02/22/21 EXA HX PT FM POST OP PREDNISONE 11/20/23 NO BONE SCAN NO LABS PAIN MANAGEMENT TBH SYMPTOMS ARE NOT GONE BUT LESS SEVERE- INTERMITTENT DISCOMFORT ANTERIOR KNEE - SYMPTOMS WORSE AFTERPROLONG SITTING AND GO TO WALK- DENIES SWELLING- +INSTABILITY - DISCONTINUED USING CANE-+PERCOCET PER PAIN MANAGEMENT TBH HX RT TKA PER DR BLAKE. HX LT MF TRIGGER FINGER RELEASE PER DR RODRIGUEZ 08/22/21 ALLERGIES: No Known Allergies HOME MEDICATIONS: [...] tablet daily ergocalciferol (Vitamin D2) 1.25 MG (32745 UT) capsule TAKE 1 CAPSULE BY MOUTH [...] and use pool at therapy center which hasbenefited her in the past.. pt thankful Questions answered in laymen terms at the bedside. The diagnosis, home exercise plan and any ongoing restrictions/ recommendations reviewed. If unable to be reached in office, I recommend evaluation at nearest Emergency Room if any symptoms worsened or new symptoms develop for requiring urgent evaluation. [facility] [id number] History of Present illness Narrative* SERGIO Iglesias - 11/20/2023 9:00 AM EDT Images from the original note were not included. HISTORY OF PRESENT ILLNESS: EST PT Lesli Clay is an 63 y.o. @ female. EST PT WITH FLARE UP LT KNEE PAIN ~7-8MO- NO KNOWN INJURY S/P LT TKA 01/03/[address] RODRIGUEZ XRAY LT KNEE/LT HIP TODAY EPIC 11/20/23 XRAY EXA 10/02/21 XRAY 02/22/21 EXA HX PT FM POST OP NO MDP NO BONE SCAN PAIN MANAGEMENT TBH PAIN ANTERIOR KNEE- INTERMITTENT SWELLING- FEELS LIKE IT WANTS TO GIVE OUT- INCREASE SYMPTOMS AFTERPROLONG SITTING- PT STATES SHE CAN HARDLY WALK AFTER SITTING FOR A HALF HR-USES CAN OCCASIONALLY - +PERCOCET PER PAIN MANAGEMENT TBH HX RT TKA PER DR BLAKE. HX LT MF TRIGGER FINGER RELEASE PER DR RODRIGUEZ 08/22/21 ALLERGIES: No Known Allergies HOME MEDICATIONS: [...] tablet daily ergocalciferol (Vitamin D2) 1.25 MG (68189 UT) capsule TAKE 1 CAPSULE BY MOUTH [...] mouth Daily for 5 days, THEN 1 tablet(20 mg) Daily for 5 days. Take with [...] Use - Medium Risk (09/09/2023) Received from [facility] Patient History Smoking Tobacco Use: Former [...] for requiring urgent evaluation. [id number] Hospital Discharge instructions* Discharge Instructions* Gladys Frias RN - 06/30/2023 1:04 PM [...] a good idea to know your test resultsand keep a list of the medicines you [...] on your own. During sedation/analgesia your blood pressure,heart and breathing will be watched closely. After [...] medications unless otherwise instructed. [facility] History of Present illness Narrative* Gladys Frias RN - 06/30/2023 11:16 AM EDT Patient admitted, consent signed and questions answered. Patient ready for procedure. Call light toreach with side rails up 2 of 2. Bilateral groin clipped with communications writer and Gabrielle NGUYEN present. Salvador at bedside with patient. History and physical needs updated. [facility] Miscellaneous Notes* Telephone Encounter - Liat Nell - 06/04/2023 2:58 PM EDT Line Up Examiner rec'd VM from [facility] in precert stating Dr. Moreno/Andre is out network with this patient insurance and procedure will not be covered, however, pt insurance covers [facility]. Line Up Examiner called over to [facility] Emergency Room Registered Nurse/Onc regarding patient to see if they could see this patient and take over care, theyrequested all information be faxed to their office and they will reach out to patient. Line Up Examiner did notify patient we had to cx procedure and all upcoming appts, referral was sent over to [facility] cook helper dessert/onc, pt voices understanding and communications writer advised pt to call our office back if she has any problems getting established with another provider, pt voices understanding. [facility] [place] Telephone encounter Note* Telephone Encounter - Liatedward Camejo - 06/04/2023 2:58 PM EDT Line Up Examiner rec'd VM from [facility] in precert stating Dr. Moreno/Andre is out network with this patient insurance and procedure will not be covered, however, pt insurance covers [facility]. Line Up Examiner called over to [facility] Emergency Room Registered Nurse/Onc regarding patient to see if they could see this patient and take over care, theyrequested all information be faxed to their office and they will reach out to patient. Line Up Examiner did notify patient we had to cx procedure and all upcoming appts, referral was sent over to [facility] cook helper dessert/onc, pt voices understanding and communications writer advised pt to call our office back if she has any problems getting established with another provider, pt voices understanding. [facility] [place]04-17-[facility] History of Present illness Narrative* Edwin Moreno MD - 06/03/2023 10:00 AM EDT Subjective: Lesli is a 63 y.o. female here for consultation from Dr. Webb for evaluation and management of grade 2 endometrioid endometrial adenocarcinoma. Discussed her diagnosis in detail and the recommendation for surgical staging which includes removal of the uterus, cervix, bilateral tubes and ovaries along with lymph node sampling we also discussed possible need for adjuvant therapy. She currently has no symptoms and no alleviating or exacerbating factors, she is significant anxiety regarding her new diagnosis of cancer. She does have a family history of a sister with ovarian cancer. Oncology History No overview note Lesli : Denies Early satiety Denies Abdominal distention Denies Leg swelling Denies Shortness of breath Denies Vaginal bleeding Denies Change in bowel habits Denies Change in bladder habits Denies Nausea and vomiting All other systems negative, unless specifically noted in HPI. Past Gynecologic History: OB History 3 Para 3 Term AB Living SAB IAB Ectopic Multiple Live Births No LMP recorded (lmp unknown). Patient is postmenopausal. Hormonal Contraceptives No HRT use No History of abnormal pap No Past Surgical History: Procedure Laterality Date BACK SURGERY 09/2015 8 rods inserted - pt has had 3 back surgeries CARPAL TUNNEL RELEASE 2013 SECTION 3 c-sections JOINT REPLACEMENT 08/2016 right knee replacement KNEE CARTILAGE SURGERY 2012 meniscus repair on left lower extremity NECK SURGERY 2010 ROTATOR CUFF REPAIR 2012 rotator cuff repair on both side Past Medical History: Diagnosis Date Anxiety Arthritis Cellulitis Depression Diabetes mellitus ([facility]) Diabetes mellitus type 2, controlled ([facility]) Fibromyalgia, primary GERD (gastroesophageal reflux disease) Hyperlipidemia Hypertension Injury of back Obesity Panic disorder Psoriasis Reflex sympathetic dystrophy Sleep apnea was told by another hospital that she has sleep apnea Family History Problem Relation Age of Onset Ovarian cancer Sister Social History Tobacco Use Smoking status: Former Current packs/day: 0.00 Types: Cigarettes Quit date: 06/18/2010 Years since quittin.9 Smokeless tobacco: Never Substance Use Topics Alcohol use: Never Review of Symptoms: Pertinent items are noted in HPI. Objective: BP (!) 154/98 Pulse 90 Temp 36.4 C (97.6 F) (Temporal) Ht 160 cm (5' 3 ) Wt 129 kg (284 lb 6.4 oz) LMP (LMP Unknown) SpO2 97% BMI 50.38 kg/m ECO- Asymptomatic General appearance: alert, appears stated age and cooperative Head: Normocephalic, without obvious abnormality, atraumatic Ears: normal TM's and external ear canals both ears Neck: no adenopathy, no carotid bruit, no JVD, supple, symmetrical, trachea midline and thyroid notenlarged, symmetric, no tenderness/mass/nodules Lungs: clear to auscultation bilaterally Breasts: normal appearance, no masses or tenderness Heart: regular rate and rhythm, S1, S2 normal, no murmur, click, rub or gallop Abdomen: abnormal findings: Soft, obese, nontender, no rebound or guarding. Pelvic: cervix normal in appearance, external genitalia normal, uterus normal size, shape, and consistency, vagina normal without discharge Extremities: extremities normal, atraumatic, no cyanosis or edema Pulses: 2+ and symmetric Skin: Skin color, texture, turgor normal. No rashes or lesions Lymph nodes: Cervical, supraclavicular, and axillary nodes normal. Neurologic: Grossly normal Labs: Lab Results Component Value Date WBC 11.8 (H) 02/19/2022 HGB 11.3 (L) 02/19/2022 HCT 34.4 (L) 02/19/2022 MCH 27.1 02/19/2022 MCHC 32.8 02/19/2022 PLT 299 02/19/2022 MPV 7.2 02/19/2022 RDW 15.6 (H) 02/19/2022 Lab Results Component Value Date BUN 20 02/19/2022 K 4.0 02/19/2022 CL 97 (L) 02/19/2022 ALBUMIN 4.3 05/28/2021 AST 12 05/28/2021 No results found for: GGT No results found for: LDH Lab Results Component Value Date MG 1.5 (L) 02/19/2022 No results found for: PHOS No results found for: URIC Assessment: Patient is diagnosed with Patient Active Problem List Diagnosis Chronic pain disorder Generalized anxiety disorder Severe episode of recurrent major depressive disorder, without psychotic features ([facility]) Cellulitis of right lower extremity Endometrial cancer ([facility]) BMI 50.0-59.9, adult ([facility]) Plan: 1. The patient has a documented plan of care to address pain. 2. Grade 2 endometrioid endometrial adenocarcinoma-plan for minimally invasive hysterectomy with BSO and sentinel lymph node dissection. Any decisions for adjuvant therapy will be based on pathologicfindings. 3. Discussed the risks of surgery in detail including; bleeding, infection, damage to internal organs, risk of anesthesia including-clots, pneumonia, myocardial infarction, stroke and even . Thepatient understands the risks and elects to proceed. 4. Total time spent was 68 minutes: Preparing to see the patient (e.g., review of tests) Obtaining and/or reviewing separately obtained history Performing a medically appropriate examination and/or evaluation Counseling and educating the patient/family/caregiver Ordering medications, tests, or procedures Referring and communicating with other health care transitions manager (not separately reported) Documenting clinical information in the electronic or other health record Edwin Moreno MD documented in this encounterKing[facility] [place]-20-[facility]24 Evaluation note* Author [facility] Authored April 07, 2023 11:54am Patient [...] return in 2 weeks for download with health educator and in approximately 4 week follow up with provider. Encouraged to return for follow up visit. 45 minutes spent on education with Jodi DAIGLE RN. [facility] Work Phone: 1(534) 781-808602-20-2024 Evaluation note* Author [facility] Authored April 07, 2023 11:54am Patient [...] for Bella CGM will be sent to [facility] to determine cost for CGM. Patient provided contact number for [facility]. If pt is unable to afford CGM, pt instructed to continue use of her personal meter. Pt to return in 2 weeks for download with health educator and in approximately 4 week follow up with provider. Encouraged to return for follow up visit. 45 minutes spent on education with Jodi DAIGLE, RN. Author Lili Burgos [facility] Authored May 11, 2023 1:1 8pm Meter: [employer] download 27 April through 11 May 2023 14 days and report, total readings 28, average 2/day, average blood glucose is 134. Lowest 84 and highest 200. Patient is here for Type 2 Diabetes, diagnosed approximately 2017 Any hypoglycemic events: not lower than 70, [...] have likely improved. Checking on CGM from [facility]-- processing 4 weeks ago, would benefit [...] of hypoglycemia, hyperglycemia, or diabetes medication issues. [facility] Work Phone: 1(654) 373-423612-19-2023 Evaluation note* Encounter Date Diagnosis Assessment Notes Treatment Notes Treatment Clinical Notes Jan, Type 2 diabetes mellitus with hyperglycemia (ICD-10 - E11.65) ASSESSMENT: 1. Controlled, a Type 2 diabetes with A1c of 9.7%, was 8.0%. Worsening. 2. Out of Jardiance X3 weeks should not have impacted A1c to this degree, but needs to restart. Defers CGM d/t cost. Sampled Toluy 12.06/999 and given voucher JarBaton [place] Homesance_ _ should buy 6 weeks of treatment with SGLT2i while settling out LOW INCOME SUBSIDY as recommended by for PAP Oanhance. (knows to hold Metfromin while on Synjardy) [...] of insulin. Patient deferred due to her mxc-vl-ramzoo cost. 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 Patient deferred due to her mmw-sx-cqapxd cost. We will retry in a couple [...] medication issues. 6. Prescriptions: None needed 10-03-2022.PAP Ozempic/Tresielyssa. PAP denied for Jardiance Nov, Vitamin D [...] at goal of less than 130/80 Nov, alf current use of insulin (ICD-10 - Z79.4) Nov, BMI 50.0-59.9, adult (ICD-10 - Z68.43) [employer] Other 10-10-2023 Evaluation note* Encounter Date Diagnosis [...] Nov, Other chronic pain (ICD-10 - G89.29) [employer] Other 08-24-2023 Evaluation note* Encounter Date Diagnosis [...] of lumbar spinal fusion (ICD-10 - Z98.1) [employer] Other 08-18-2023 Evaluation note* Encounter Date Diagnosis [...] of insulin. Patient deferred due to her vun-rx-ktzxby cost. We will retry in a couple [...] 143/88, goal of less than 130/80 Sep, alf current use of insulin (ICD-10 - Z79.4) Sep, BMI 50.0-59.9, adult (ICD-10 - Z68.43) [employer] Other 06-27-2023 Evaluation note* Encounter Date Diagnosis Assessment Notes Treatment Notes Treatment Clinical Notes Jul, Lumbar radiculopathy (ICD-10 - M54.16) Independently reviewed the CT of the lumbar spine from 03/06/22, reviewed rwyb-ob-peqe with patient which shows which shows multilevel degenerative changes with mild to moderate canal and foraminal narrowing at the L4-L5. Shows posterior mechanical fusion at the L1-S1 with posterior decompression at the L1-L3. Patient had physical therapy at [facility] and continues to do the home [...] as prescribed. Will add lidocaine patch and cbgq-szw-rbthfrb Thermo patch. Will follow-up in 8 weeks [...] osteoporosis Jul, Other OARRS reveiwed ODRS 450 [employer] Other 06-16-2023 Evaluation note* Encounter Date Diagnosis [...] of insulin. Patient deferred due to her eoo-fs-dqhqok cost. We will retry in a couple [...] material was published to portal Jul, intermodal customer service current use of insulin (ICD-10 - Z79.4) Jul, BMI 50.0-59.9, adult (ICD-10 - Z68.43) [employer] Other 04-21-2023 Evaluation note* Encounter Date Diagnosis [...] Instructions material was published to portal May, alf current use of insulin (ICD-10 - Z79.4) May, BMI 50.0-59.9, adult (ICD-10 - Z68.43) May, Other Expect improvement with escalation of Ozempic to 2.0 mg subcu daily. Weight up today without decrease in insulin needs, no increases satiety The patient was given a Dexcom G6 sample and loaned an Office owned Dexcom G6 Excavating Supervisor. The sensor was placed on the back of her right arm by this educator. The patient was shown how to unlock the farmworker dairy and read her BG. 15 minutes were spent placing the sensor and educating the patient by Lit Dixon RN, [facility] . [employer] Other 03-30-2023 NoteCONSULTATION CONSULTATION DATE: 05/15/2022 TO: [...] nerve under fluoroscopic guidance.[facility] [id number] Evaluation note* Encounter Date Diagnosis Assessment Notes [...] Instructions material was published to portal Feb, alf current use of insulin (ICD-10 - Z79.4) Feb, BMI 45.0-49.9, adult (ICD-10 - Z68.42) Expect improvement with escalation of Ozempic to 2.0 mg subcu daily. Weight up today without decrease in insulin needs, no increases satiety [employer] Other 12-29-2022 NoteCONSULTATION CONSULTATION DATE: 02/13/2022 HISTORY [...] is able to walk unassisted. Medications include [place] 5/325 t.i.d., baclofen 10 mg q.h. s., [...] A referral will be sent to [facility] to Dr. Moses Goetz for evaluation and patient is in complete agreement with this. We will continue to maintain her medications at this time, which will include Lyrica, [place] and baclofen. We will see the patient in three months' time, unless otherwise indicated. Patient was asked to call the office with an update once she has seen Neurosurgery.[facility] 12-31-2021 Evaluation note* Encounter Date Diagnosis Assessment Notes Treatment Notes Treatment Clinical Notes Dec, Type 2 diabetes mellitus with hyperglycemia (ICD-10 - E11.65) [employer] Other 09-21-2022 NoteCONSULTATION CONSULTATION DATE: 11/06/2021 HISTORY [...] secondary to her pain. Current medications include [place] 5/325 t.i.d., baclofen 10 mg q.h.s., Pamelor [...] agrees with this plan.[facility] [id number] Evaluation note* Encounter Date Diagnosis Assessment Notes [...] Instructions material was published to portal Oct, intermodal customer service current use of insulin (ICD-10 - Z79.4) Oct, BMI 45.0-49.9, adult (ICD-10 - Z68.42) Expect improvement with escalation of Ozempic to 2.0 mg subcu daily. Weight slightly improving. hopeful for continue reduction to increase insulin sensitivity and decrease insulin needs. [employer] Other 06-16-2022 NoteCONSULTATION CONSULTATION DATE: 08/01/2021 HISTORY [...] burn but manageable. Her current medications are [place] 5/325 t.i.d., baclofen 10 mg q.h.s. and [...] move forward with aqua therapy at the [place] location. I did discuss vitamins with her as well as nutrition importance. Patient will be seen at the clinic in three months' time unless otherwise indicated. [facility] Signed and Approved by: ALICIA HERNANDEZ . 08/14/2021 16:24:00[facility]05-23-2022 Evaluation note* Encounter Date Diagnosis Assessment Notes Treatment Notes Treatment Clinical Notes June, Type 2 diabetes mellitus with hyperglycemia (ICD-10 - E11.65) [employer] Other 05-19-2022 Evaluation note* Encounter Date Diagnosis [...] Instructions material was published to portal June, alf current use of insulin (ICD-10 - Z79.4) June, BMI 45.0-49.9, adult (ICD-10 - Z68.42) Expect improvement with escalation of Ozempic to 2.0 mg subcu daily. [employer] Other 10-06-2021 Evaluation note* Encounter Date Diagnosis [...] Prescriptions: None needed at this time. Nov, alf current use of insulin (ICD-10 - Z79.4) [...] About Vitamin D material was published to [employer] Other Evalujmhor noteNo InformationNortForbes [facility] Other Evaluation noteNo assessment information available [facility] Work Phone: Evaluation note* Diagnosis Onset Date Resolution Status Type 2 diabetes mellitus with hyperglycemia acute [facility] Work Phone: Evaluation note* Diagnosis Abnormal stress test Other nonspecific abnormal cardiovascular system function study documented in this encounter [facility] Diagnosis Onset Date Resolution Status Hyperlipemia acute Hypertension acute Type 2 diabetes mellitus with hyperglycemia acute [facility] Work Phone: Evaluation note* Diagnosis Acute pain of left knee- Primary History of left knee replacement Left hip pain Pain in joint, pelvic region and thigh documented in this encounter [facility]* Diagnosis Wellness examination- Primary Encounter for screening mammogram for malignant neoplasm of breast Heart murmur, systolic Preoperative clearance Unspecified pre-operative examination Primary hypertension ([facility]/H[facility]) Unspecified essential hypertension BMI 50.0-59.9, adult ([facility]) Mixed hyperlipidemia ([facility]/HCC) Mixed hyperlipidemia Recurrent major depressive disorder, in partial remission (HCC) ([facility]) Type 2 diabetes mellitus with hyperglycemia, with long-term current use of insulin ([facility]) Primary hypertension ([facility]/HCC) Unspecified essential hypertension documented in this encounter [facility]* Diagnosis Wellness examination- Primary Encounter for screening mammogram for malignant neoplasm of breast Heart murmur, systolic Preoperative clearance Unspecified pre-operative examination Primary hypertension (CMS/HCC) Unspecified essential hypertension BMI 50.0-59.9, adult (CMS/HCC) Mixed hyperlipidemia (CMS/HCC) Mixed hyperlipidemia Recurrent major depressive disorder, in partial remission (HCC) ([facility]) Type 2 diabetes mellitus with hyperglycemia, with long-term current use of insulin ([facility]) Acute pain of left knee- Primary History of left knee replacement documented in this encounter [facility]* Diagnosis Onset Date Resolution Status Admit Date Dietary counseling and surveillance acute December 29, 024 9:39am Encounter for long-term (current) insulin use acute December 17 3th, 2023 9:39am Hyperlipemia acute December h, 2023 9:39am Hypertension acute December h, 2023 9:39am Type 2 diabetes mellitus wit h hyperglycemia acute December 29, 024 9:39am Vitamin D deficiency, unspecified acute December 29, 024 9:39am [facility] Work Phone: Evaluation note* Diagnosis Wellness examination- Primary Encounter for screening mammogram for malignant neoplasm of breast Heart murmur, systolic Preoperative clearance Unspecified pre-operative examination Primary hypertension (CMS/HCC) Unspecified essential hypertension BMI 50.0-59.9, adult (CMS/HCC) Mixed hyperlipidemia (CMS/HCC) Mixed hyperlipidemia Recurrent major depressive disorder, in partial remission (HCC) ([facility]) Type 2 diabetes mellitus with hyperglycemia, with long-term current use of insulin ([facility]) Acute pain of right shoulder- Primary Arthritis of right acromioclavicular joint documented in this encounter [facility]* Diagnosis Wellness examination- Primary Encounter for screening mammogram for malignant neoplasm of breast Heart murmur, systolic Preoperative clearance Unspecified pre-operative examination Primary hypertension (CMS/HCC) Unspecified essential hypertension BMI 50.0-59.9, adult ([facility]/HCC) Mixed hyperlipidemia ([facility]/HCC) Mixed hyperlipidemia Recurrent major depressive disorder, in partial remission (HCC) ([facility]) Type 2 diabetes mellitus with hyperglycemia, with long-term current use of insulin ([facility]/HCC) Bronchitis- Primary Bronchitis, not specified as acute or chronic Type 2 diabetes mellitus with diabetic mononeuropathy ([facility]) Wheezing documented in this encounter [facility]* Diagnosis Wellness examination- Primary Encounter for screening mammogram for malignant neoplasm of breast Heart murmur, systolic Preoperative clearance Unspecified pre-operative examination Primary hypertension (CMS/HCC) Unspecified essential hypertension BMI 50.0-59.9, adult (CMS/HCC) Mixed hyperlipidemia (CMS/HCC) Mixed hyperlipidemia Recurrent major depressive disorder, in partial remission (HCC) (CMS/HCC) Type 2 diabetes mellitus with hyperglycemia, with long-term current use of insulin ([facility]) Acute pain of right shoulder- Primary Arthritis of right acromioclavicular joint Internal derangement of right shoulder History of claustrophobia documented in this encounter [facility]* Diagnosis Wellness examination- Primary Encounter for screening mammogram for malignant neoplasm of breast Heart murmur, systolic Preoperative clearance Unspecified pre-operative examination Primary hypertension ([facility] [facility] Unspecified essential hypertension BMI 50.0-59.9, adult ([facility]) Mixed hyperlipidemia ([facility]) Mixed hyperlipidemia Recurrent major depressive disorder, in partial remission (HCC) ([facility]) Type 2 diabetes mellitus with hyperglycemia, with long-term current use of insulin ([facility]) Type 2 diabetes mellitus with diabetic mononeuropathy, with long-term current use of insulin ([facility])- Primary Left leg cellulitis Morbid (severe) obesity due to excess calories ([facility]) Body mass index (BMI) 50.0-59.9, adult ([facility]) Type 2 diabetes mellitus with other skin complications ([facility]) Bipolar disorder, unspecified ([facility]) Bipolar disorder, unspecified documented in this encounter [facility] HealthcareEvaluation note* Diagnosis Wellness examination- Primary Encounter for screening mammogram for malignant neoplasm of breast Heart murmur, systolic Preoperative clearance Unspecified pre-operative examination Primary hypertension ([facility]) Unspecified essential hypertension BMI 50.0-59.9, adult ([facility]) Mixed hyperlipidemia ([facility]) Mixed hyperlipidemia Recurrent major depressive disorder, in partial remission (HCC) ([facility]) Type 2 diabetes mellitus with hyperglycemia, with long-term current use of insulin ([facility]) History of claustrophobia- Primary documented in this encounter [facility] HealthcareEvaluation note* Diagnosis Wellness examination- Primary Encounter for screening mammogram for malignant neoplasm of breast Heart murmur, systolic Preoperative clearance Unspecified pre-operative examination Primary hypertension ([facility]) Unspecified essential hypertension BMI 50.0-59.9, adult ([facility]) Mixed hyperlipidemia ([facility]) Mixed hyperlipidemia Recurrent major depressive disorder, in partial remission (HCC) ([facility]) Type 2 diabetes mellitus with hyperglycemia, with long-term current use of insulin ([facility]) Left leg cellulitis- Primary Type 2 diabetes mellitus with diabetic mononeuropathy, with long-term current use of insulin ([facility]) Skin rash Rash and other nonspecific skin eruption Opioid dependence, uncomplicated ([facility]) documented in this encounter [facility] HealthcareEvaluation note* Diagnosis Wellness examination- Primary Encounter for screening mammogram for malignant neoplasm of breast Heart murmur, systolic Preoperative clearance Unspecified pre-operative examination Primary hypertension ([facility]) Unspecified essential hypertension BMI 50.0-59.9, adult ([facility]) Mixed hyperlipidemia ([facility]) Mixed hyperlipidemia Recurrent major depressive disorder, in partial remission (HCC) ([facility]) Type 2 diabetes mellitus with hyperglycemia, with long-term current use of insulin ([facility]) Mixed hyperlipidemia ([facility]) Mixed hyperlipidemia documented in this encounter [facility] HealthcareEvaluation note* Diagnosis Wellness examination- Primary Encounter for screening mammogram for malignant neoplasm of breast Heart murmur, systolic Preoperative clearance Unspecified pre-operative examination Primary hypertension ([facility]) Unspecified essential hypertension BMI 50.0-59.9, adult ([facility]) Mixed hyperlipidemia ([facility]) Mixed hyperlipidemia Recurrent major depressive disorder, in partial remission (HCC) ([facility]) Type 2 diabetes mellitus with hyperglycemia, with long-term current use of insulin ([facility]) Acute pain of right shoulder- Primary Arthritis of right acromioclavicular joint Biceps tendinitis, right documented in this encounter [facility] HealthcareEvaluation note* Diagnosis Wellness examination- Primary Encounter for screening mammogram for malignant neoplasm of breast Heart murmur, systolic Preoperative clearance Unspecified pre-operative examination Primary hypertension ([facility]) Unspecified essential hypertension BMI 50.0-59.9, adult ([facility]) Mixed hyperlipidemia ([facility]) Mixed hyperlipidemia Recurrent major depressive disorder, in partial remission (HCC) ([facility]) Type 2 diabetes mellitus with hyperglycemia, with long-term current use of insulin ([facility]) Biceps tendinitis, right- Primary Impingement of right shoulder documented in this encounter [facility] HealthcareEvaluation note* Diagnosis Endometrial cancer ([facility])- Primary Malignant neoplasm of corpus uteri, except isthmus BMI 50.0-59.9, adult ([facility]) documented in this encounter [facility] SystemEvaluation note* Diagnosis Wellness examination- Primary Encounter for screening mammogram for malignant neoplasm of breast Heart murmur, systolic Preoperative clearance Unspecified pre-operative examination Primary hypertension ([facility]) Unspecified essential hypertension BMI 50.0-59.9, adult ([facility]) Mixed hyperlipidemia ([facility]) Mixed hyperlipidemia Recurrent major depressive disorder, in partial remission (HCC) ([facility]) Type 2 diabetes mellitus with hyperglycemia, with long-term current use of insulin ([facility]) Type 2 diabetes mellitus with diabetic mononeuropathy, with long-term current use of insulin ([facility])- Primary SOB (shortness of breath) Shortness of breath Wheezing Poorly-controlled hypertension ([facility]) documented in this encounter [facility] HealthcareEvaluation note* Diagnosis Wellness examination- Primary Encounter for screening mammogram for malignant neoplasm of breast Heart murmur, systolic Preoperative clearance Unspecified pre-operative examination Primary hypertension ([facility]) Unspecified essential hypertension BMI 50.0-59.9, adult ([facility]) Mixed hyperlipidemia ([facility]) Mixed hyperlipidemia Recurrent major depressive disorder, in partial remission (HCC) ([facility]) Type 2 diabetes mellitus with hyperglycemia, with long-term current use of insulin ([facility]) Acute non-recurrent pansinusitis- Primary documented in this encounter [facility] HealthcareEvaluation note* Diagnosis Wellness examination- Primary Encounter for screening mammogram for malignant neoplasm of breast Heart murmur, systolic Preoperative clearance Unspecified pre-operative examination Primary hypertension ([facility]) Unspecified essential hypertension BMI 50.0-59.9, adult ([facility]) Mixed hyperlipidemia ([facility]) Mixed hyperlipidemia Recurrent major depressive disorder, in partial remission (HCC) ([facility]) Type 2 diabetes mellitus with hyperglycemia, with long-term current use of insulin ([facility]) Acute pain of right shoulder- Primary Arthritis of right acromioclavicular joint Biceps tendinitis, right Partial nontraumatic tear of rotator cuff, right documented in this encounter [facility] HealthcareHistory general Narrative - Reported* Type Description Date Medical History RSD Medical History fibromyalgia Medical History hypertension Medical History type II diabetes Surgical History C section X3 Surgical History rotator cuff tear repair Surgical History back surgery x3 Surgical History knee surgery Surgical History hysteroscopy 05/30 Surgical History c5-c6 plates & screws Surgical History D&C 05/30 Hospitalization History see above [employer] Other History general Narrative - Reported* Type [...] replacement, Left 12/2020 Hospitalization History see above [employer] Other [facility] general Narrative - Reported* Type Description Date Medical History fibromyalgia Medical History hypertension Medical History type II diabetes Surgical History C section X3 Surgical History rotator cuff tear repair Surgical History back surgery x3 Surgical History knee surgery Surgical History hysteroscopy 4/14 Surgical History c5-c6 plates & screws Surgical History D&C 05/30 Surgical History knee replacement, Left 12/2020 Hospitalization History see above [facility] Other [employer] general Narrative - Reported* Type Description Date [...] bilatera l 2021 Hospitalization History see above [employer] Other [facility] general Narrative - Reported* Type Description Date [...] Hospitalization History see above Hospitalization History [facility] [place]- Flu 02/2022 [facility] Other [facility] general Narrative - Reported* Type Description Date [...] Hospitalization History see above Hospitalization History [facility] [place]- Flu 02/2022 [facility] Other [facility] - [facility] Other InstructionsNot on filedocumented in this encounter [facility] SystemInstructionsNot on filedocumented in this encounter [facility] SystemReason for visit Narrative* Consultation (Routine) - Authorized Specialty Diagnoses / Procedures Referred By Contac t Referred To Contact Physical Therapy Diagnoses Biceps tendinitis, right Procedures [place] OFFICE/OUTPATIENT NEW HIGH MDM 60 MINUTES Jr. Rica Rodriguez, DO [address] [place] [address] Phone: tel: fax: Sean León, PT [address] [place] [address] Phone: tel: fax: Referral ID Status Reason Start Date Expiration Date Visits Requested Visits Authorized [id number] Authorized Consult and Treat 03/16/2024 09/12/2024 6 6 [facility] Healthcare Summary Purpose Family History Relationship Condition Age [...] Inactivated Comments Full Code 06/30/2023 10:53 AM Date Activated Date Inactivated Comments 12/06/2016 2:11 PM 12/08/2016 12:13 PM Chief Complaint and Reason for Visit Chief Complaint Admit Date 3 month f/u-DMN f/u-METER December 30, 2023 9:39am m24.811 March 10, 2024 7 :30am Reason for Visit Admit Date Dietary counseling and surveillance Baljit maldonado 2023 9:39am Encounter for long-term (current) insuli n use December 30, 2023 9:39am Hyperlipemia December 30, 2023 9:39am Hypertension December 30, 2023 9:39am Type 2 diabetes mellitus with hyperglyce bobby December 30, 2023 9:39am Vitamin D deficiency, unspecified Novemb er 2023 9:39am Chief Complaint DM M54.16 Chief Complaint DM [...] f/u-METER December 30, 2023 9:39am Reason for Referral Reason EMG bilat lower extr emities Diagnosis 1 BMI 50.0-59.9, adult (Z68.43) Referral Organization [facility] urosurgery Referring Provider First Name Martine Referring Provider Last Name Tobias Referring Provider Specialty Nurse Pract itioner Referred Organization [facility] Referred Address [address] [place], [place],[address] Referred Provider Specialty Neurology Referral Priority Routine Reason evaluate and treat - tremors Diagnosis 1 BMI 50.0-59.9, adult (Z68.43) Referral Organization [facility] Referring Provider First Name Martine Referring Provider Last Name Tobias Referring Provider Specialty Nurse Pract itioner Referred Organization [facility] Referred Address [address] [place],[address] Referred Provider Specialty Neurology Referral Priority Routine Reason Evaluate and treat - osteoporosis Diagnosis 1 BMI 50.0-59.9, adult (Z68.43) Referral Organization [facility] [place] Referring Provider First Name Martine Referring Provider Last Name Tobias Referring Provider Specialty Nurse Pracalli itioner Referred Organization [facility] Referred Provider Jennifer Siu Referred Address [address] [facility] [place] [place],[address] Referred Provider Specialty Nurse Pracphilipp segaloneyasmine Referral Priority Routine Additional Source Comments INFORMATION SOURCE (unrecogn ized section and content) DATE CREATED AUTHOR 08/12/2017 [place] DATE CREATED AUTHOR AUTHOR'S ORGANIZ ATION 07/02/2022 [facility] DATE CREATED AUTHOR AUTHOR'S ORGANIZ ATION 05/31/2023 [facility] DATE CREATED AUTHOR AUTHOR'S ORGANIZ ATION 06/04/2023 [facility] DATE CREATED AUTHOR AUTHOR'S ORGANIZ ATION 06/30/2023 [facility] DATE CREATED AUTHOR AUTHOR'S ORGANIZ ATION 01/07/2024 [facility] DATE CREATED AUTHOR AUTHOR'S ORGANIZ ATION 03/13/2024 [facility] DATE CREATED AUTHOR AUTHOR'S ORGANIZ ATION 04/12/2024 [facility] DATE CREATED AUTHOR AUTHOR'S ORGANIZ ATION 04/17/2024 [facility] d[facility] Specialists EPIC REASON FOR VISIT (unrecogniz ed section and content) Specialty Diagnoses / Procedures Referred By Alok carson Referred To Contact Diagnoses Abnormal stress test Abnormal stress test [R94.39] Procedures [place] CATH PLMT L HRT & ARTS W/NJX & ANGIO IMG S&I W[place] CATH PLMT L HRT & ARTS W/NJX & ANGIO IMG S&I Left heart [place] / [place] [address] [facility] [address] [place] [address] [facility] [address] [place] [address] Referral ID Status Reason Start Date Expiration Date Visits Re quested Visits Authorized [id number] 1 1 Reason Comments Pain Reason Onset Date Comments Med Refill 12/06/2023 Reason Comments Pain Reason Onset Date Comments Med Refill 01/11/2024 Reason Comments URI Reason Comments Follow-up Reason Onset Date Comments MRI Concerns 03/02/2024 Reason Comments Leg Swelling Reason Comments Med Refill Reason Comments Follow-up Reason Onset Date Comments Procedure 06/04/2023 Out of network Reason Comments New Patient Care Teams (unrecognized sec tion and content) [...] Status: Inactive Member Role Status Dates Shawn Jon Attending Provider Active Start: 2023 End: May 22, 2023 Nutter Up Relationship Specialty Start Date End Date Pastora Kohler APRN - PAM [address] [facility] [place] [address] PCP - General Nurse Practitioner [facility] 06/15/23 Team Status: Active Member Role Status Dates NON STAFF Primary Care Provider Active Team Status: Active Member Role Status Dates Julien Goldstein Attending Provider Active Start: Luisa coles 2023 Team Status: Inactive Member Role Status Dates Lili Burgos APRN Attending Provider Active Start: September 23, 2023 End: September 23, 2023 NON STAFF Primary Care Provider Active Start: September 23, 2023 End: September 23, 2023 Nutter Up Relationship Specialty Start Date End Date Jennifer Cabrera MD [address] [place] [address] PCP - General Family Medicine 04/10/23 Pastora Kohler NP [address] [place] [address] [facility] - [facility] 02/16/23 03/18/80 Pastora Kohler NP [address] [place] [address] Nurse Practitioner Family Medicine 04/10/23 Nutter Up Relationship Specialty Start Date End Date Jennifer Cabrera MD [address] [place] [address] PCP - General Family Medicine 04/10/23 Pastora Kohler NP [address] [facility] [place] [address] PCP - [facility] 02/16/23 03/18/80 Pastora Kohler NP [address] [place] [address] Nurse Practitioner Family Medicine 04/10/23 Nutter Up Relationship Specialty Start Date End Date Jennifer Cabrera MD [address] [place] [address] PCP - General Family Medicine 04/10/23 Pastora Kohler NP [address] [place] [address] [facility] 02/16/23 03/18/80 Pastora Kohler NP [address] [place] [address] Nurse Practitioner Family Medicine 04/10/23 Nutter Up Relationship Specialty Start Date End Date Jennifer Cabrera MD [address] [place] [address] PCP - General Family Medicine 04/10/23 Pastora Kohler FARM SPECIALIST [address] [place] [address] PCP - [facility] 02/16/23 03/18/80 Pastora Kohler NP [address] [place] [address] Nurse Practitioner Family Medicine 04/10/23 Nutter Up Relationship Specialty Start Date End Date Jennifer Cabrera MD [address] [place] [address] PCP - General Family Medicine 04/10/23 Pastora Kohler NP [address] [place] [address] PCP - [facility] 02/16/23 03/18/80 Pastora Kohler NP [address] [place] [address] Nurse Practitioner Family Medicine 04/10/23 Team Status: [...] December 30, 2023 End: December 30, 2023 Nutter Up Relationship Specialty Start Date End Date Jennifer Cabrera MD [address] [place] [address] PCP - General Family Medicine 04/10/23 Pastora Kohler NP [address] [place] [address] [facility] 02/16/23 03/18/80 Pastora Kohler FARM SPECIALIST [address] [place] [address] Nurse Practitioner Family Medicine 04/10/23 Nutter Up Relationship Specialty Start Date End Date Jennifer Cabrera MD [address] [place] [address] PCP - General Family Medicine 04/10/23 Pastora Kohler NP [address] [place] [address] PCP - [facility] 02/16/23 03/18/80 Pastora Kohler NP [address] [place] [address] Nurse Practitioner Family Medicine 04/10/23 Nutter Up Relationship Specialty Start Date End Date Jennifer Cabrera MD [address] [place] [address] PCP - General Family Medicine 04/10/23 Pastora Kohler NP [address] [place] [address] PCP - [facility] 02/16/23 03/18/80 Pastora Kohler NP [address] [place] [address] Nurse Practitioner Family Medicine 04/10/23 Nutter Up Relationship Specialty Start Date End Date Jennifer Cabrera MD [address] [place] [address] PCP - General Family Medicine 04/10/23 Pastora Kohler NP [address] [place] [address] PCP - [facility] 02/16/23 03/18/80 Pastora Kohler NP [address] [place] [address] Nurse Practitioner Family Medicine 04/10/23 Nutter Up Relationship Specialty Start Date End Date Jennifer Cabrera MD [address] [place] [address] PCP - General Family Medicine 04/10/23 Pastora Kohler NP [address] [place] [address] PCP - [facility] 02/16/23 03/18/80 Pastora Kohler NP [address] [place] [address] Nurse Practitioner Family Medicine 04/10/23 Nutter Up Relationship Specialty Start Date End Date Jennifer Cabrera MD [address] [place] [address] PCP - General Family Medicine 04/10/23 Pastora Kohler NP [address] [place] [address] PCP - [facility] 02/16/23 03/18/80 Pastora Kohler NP [address] [place] [address] Nurse Practitioner Family Medicine 04/10/23 Nutter Up Relationship Specialty Start Date End Date Jennifer Cabrera MD [address] [place] [address] PCP - General Family Medicine 04/10/23 Pastora Kohler NP [address] [place] [address] PCP - [facility] 02/16/23 03/18/80 Pastora Kohler NP [address] [place] [address] Nurse Practitioner Family Medicine 04/10/23 Nutter Up Relationship Specialty Start Date End Date Jennifer Cabrera MD [address] [facility] [place] [address] PCP - General Family Medicine 04/10/23 Pastora Kohler NP [address] [place] [address] PCP - [facility] 02/16/23 03/18/80 Pastora Kohler NP [address] [facility] [place] [address] Nurse Practitioner Family Medicine 04/10/23 Team Status: Active Member Role Status Dates Pastora Kohler NP-C Primary Care Provider Activ e Team Status: Active Member Role Status Dates Pastora Kohler FARM SPECIALIST-C Primary Care Provider, Attending Provider Active Start: March 01, 2024 Team Status: Inactive Member Role Status Dates SERGIO Bermeo-Joanie Attending Provider Active S tart: March 10, 2024 End: March 10, 2024 Pastora Kohler FARM SPECIALIST-C Primary Care Provider Activ e Start: March 10, 2024 End: March 10, 2024 Nutter Up Relationship Specialty Start Date End Date Jennifer Cabrera MD [address] [facility] [place] [address] PCP - General Family Medicine 04/10/23 Pastora Kohler NP [address] [facility] [place] [address] PCP - [facility] 02/16/23 03/18/80 Pastora Kohler NP [address] [facility] [place] [address] Nurse Practitioner Family Medicine 04/10/23 Nutter Up Relationship Specialty Start Date End Date Jennifer Cabrera MD [address] [facility] [place] [address] PCP - General Family Medicine 04/10/23 Pastora Kohler NP [address] [place] [address] PCP - [facility] 02/16/23 03/18/80 Pastora Kohler NP [address] [facility] [place] [address] Nurse Practitioner Family Medicine 04/10/23 Nutter Up Relationship Specialty Start Date End Date Jennifer Cabrera MD [address] [facility] [place] [address] PCP - General Family Medicine 04/10/23 Pastora Kohler NP [address] [facility] [place] [address] PCP - [facility] 02/16/23 03/18/80 Pastora Kohler NP [address] [place] [address] Nurse Practitioner Family Medicine 04/10/23 Nutter Up Relationship Specialty Start Date End Date Judith Newman DO [address] [place] [address] PCP - General Family Medicine 02/19/22 Nutter Up Relationship Specialty Start Date End Date Judith Newman DO [address] [place] [address] PCP - General Family Medicine 02/19/22 Nutter Up Relationship Specialty Start Date End Date Jennifer Cabrera MD [address] [place] [address] PCP - General Family Medicine 04/10/23 Pastora Kohler NP [address] [place] [address] PCP - [facility] 02/16/23 03/18/80 Pastora Kohler NP [address] [place] [address] Nurse Practitioner Family Medicine 04/10/23 Nutter Up Relationship Specialty Start Date End Date Jennifer Cabrera MD [address] [facility] [place] [address] PCP - General Family Medicine 04/10/23 Pastora Kohler NP [address] [facility] [place] [address] PCP - [facility] 02/16/23 03/18/80 Pastora Kohler NP [address] [facility] [place] [address] Nurse Practitioner Family Medicine 04/10/23 Nutter Up Relationship Specialty Start Date End Date Jennifer Cabrera MD [address] [place] [address] PCP - General Family Medicine 04/10/23 Pastora Kohler NP [address] [facility] [place] [address] PCP - [facility] 02/16/23 03/18/80 Pastora Kohler NP [address] [facility] [place] [address] Nurse Practitioner Family Medicine 04/10/23 Goals (unrecognized [...] PRN, Starting on Thu06/30/23 at 1208, Until Thu06/30/23 at 1229, Intra-procedure(Cath) 1208 (Given - Provid [...] BE BASED ON THE PRIMARY CLINICAL RECORDS. [employer] provides no warranty or guarantee of the accuracy or completeness of information in this document.
--- NOTE | 2024-04-27 10:18 | PM.CN ---
Consult Note: HPI Data of Consult Patient: known to practice within the last 3 years Requesting Physician: Shama Allen NP Primary Care Provider: [facility] Consult Narrative Reason for consult: F/u Narrative: Lesli Clay a pleasant 64 year old female presents for evaluation and management of chronic low back pain and bilateral hip/buttock pain and left knee pain. Today pain 4/10 increasing to 8/10 with activity. Patient reports aching, pressure, burning. Patient finding benefit to current medication regimen without side effects. Patient found significant relief, greater than 80%, immediately following and 2 hours after bilateral superior gluteal nerve block but reporting no improvement from right and left superior gluteal RFA. She has failed to benefit from lumbar facet MBBs, and caudal ESIs. At previous visits we discussed SCS trial which she is interested in after her shoulder surgery. upcoming surgery with Dr Rodriguez June 17. cc:: CC: Shama Allen NP Review of Systems ROS Status of ROS 10 or more systems reviewed and unremarkable except as noted in history and below Musculoskeletal Reports: back pain, extremity pain and joint pain PFSH PFSH Medical History Pelvic pain ?R10.2 - Pelvic and perineal pain (ICD-10) Post-menopausal bleeding ?N95.0 - Postmenopausal bleeding (ICD-10) Fibromyalgia ?M79.7 - Fibromyalgia (ICD-10) Arthritis ?M19.90 - Unspecified osteoarthritis, unspecified site (ICD-10) Neck pain ?M54.2 - Cervicalgia (ICD-10) Back pain ?M54.9 - Dorsalgia, unspecified (ICD-10) Depression ?F32.A - Depression, unspecified (ICD-10) Panic attacks ?F41.0 - Panic disorder [episodic paroxysmal anxiety] (ICD-10) COVID-19 ?U07.1 - COVID-19 (ICD-10) Dyspnea on exertion ?R06.09 - Other forms of dyspnea (ICD-10) High cholesterol ?E78.00 - Pure hypercholesterolemia, unspecified (ICD-10) Diabetes ?E11.9 - Type 2 diabetes mellitus without complications (ICD-10) Delayed recovery from anesthesia Anesthesia complication ?T88.59XA - Other complications of anesthesia, initial encounter (ICD-10) Postmenopausal ?Z78.0 - Asymptomatic menopausal state (ICD-10) RSD (reflex sympathetic dystrophy) ?G90.50 - Complex regional pain syndrome I, unspecified (ICD-10) Low back pain ?M54.50 - Low back pain, unspecified (ICD-10) Osteoarthritis ?M19.90 - Unspecified osteoarthritis, unspecified site (ICD-10) Shingles ?B02.9 - Zoster without complications (ICD-10) Anxiety ?F41.9 - Anxiety disorder, unspecified (ICD-10) Obesity ?E66.9 - Obesity, unspecified (ICD-10) Heartburn ?R12 - Heartburn (ICD-10) Acid reflux ?K21.9 - Gastro-esophageal reflux disease without esophagitis (ICD-10) Diabetes 1.5, managed as type 2 ?E13.9 - Other specified diabetes mellitus without complications (ICD-10) Hypercholesterolemia ?E78.00 - Pure hypercholesterolemia, unspecified (ICD-10) Hypertension ?I10 - Essential (primary) hypertension (ICD-10) Surgical History S/P epidural steroid injection ?Z92.241 - Personal history of systemic steroid therapy (ICD-10) History of carpal tunnel release ?Z98.890 - Other specified postprocedural states (ICD-10) History of arthroplasty of knee ?Z96.659 - Presence of unspecified artificial knee joint (ICD-10) History of fusion of cervical spine ?Z98.1 - Arthrodesis status (ICD-10) H/O hemorrhoidectomy ?Z98.890 - Other specified postprocedural states (ICD-10) History of delivery ?Z98.891 - History of uterine scar from previous surgery (ICD-10) Hx of arthroscopy of knee ?Z98.890 - Other specified postprocedural states (ICD-10) H/O repair of rotator cuff ?Z98.890 - Other specified postprocedural states (ICD-10) H/O dilation and curettage ?Z98.890 - Other specified postprocedural states (ICD-10) History of hysteroscopy ?Z98.890 - Other specified postprocedural states (ICD-10) H/O lumbar discectomy ?Z98.890 - Other specified postprocedural states (ICD-10) History of lumbar laminectomy ?Z98.890 - Other specified postprocedural states (ICD-10) S/P trigger finger release ?Z98.890 - Other specified postprocedural states (ICD-10) Family History Other Family history of heart disease Family history of hypertension Family history of myocardial infarction Social History Within the past year, how often did you have a drink containing alcohol: never Score interpretation: A score less than 3 is consistent with normal alcohol consumption. Smoking status: Former smoker Non-prescribed substance use: denies use Highest level of school completed/degree received: high school graduate Meds Home Medications and Allergies Home Medications ?Medication ?Instructions ?Recorded ?Confirmed ?Type atorvastatin 40 mg tablet 40 mg PO QDAY 07/16/22 06/02/23 History bupropion HCl 300 mg 24 hr tablet, 300 mg PO QDAY 07/16/22 06/02/23 History extended release (Wellbutrin XL) metoprolol tartrate 25 mg tablet 25 mg PO BID 07/16/22 06/02/23 History tizanidine 4 mg capsule (Zanaflex) 4 mg PO Q12H 07/16/22 06/02/23 History aripiprazole 15 mg tablet (Abilify) 15 mg PO DAILY 05/12/23 06/02/23 History insulin degludec 100 unit/mL (3 48 unit subcut DAILY 05/12/23 06/02/23 History mL) subcutaneous pen (Tresiba FlexTouch U-100 insulin) losartan 50 mg-hydrochlorothiazide 1 tab PO DAILY 05/12/23 06/02/23 History 12.5 mg tablet (Hyzaar) semaglutide 2 mg/dose (8 mg/3 mL) 2 mg subcut QWEEK 05/12/23 06/02/23 History subcutaneous pen injector (Ozempic) hydroxyzine pamoate 25 mg capsule 25 mg PO QID PRN anxiety 08/06/23 08/06/23 History nortriptyline 50 mg capsule 50 mg PO DAILY 08/06/23 08/06/23 History pregabalin 100 mg capsule (Lyrica) 100 mg PO TID #90 caps 01/27/24 Rx naloxone 4 mg/actuation nasal 4 mg intranasal Q2M PRN opioid 02/03/24 Rx spray (Narcan) overdose #2 ea oxycodone-acetaminophen 7.5 mg-325 1 tab PO TID PRN pain #90 tabs 02/03/24 Rx mg tablet (Percocet) oxycodone-acetaminophen 7.5 mg-325 1 tab PO TID PRN pain #90 tabs 02/29/24 Rx mg tablet (Percocet) pregabalin 100 mg capsule (Lyrica) 100 mg PO TID #90 caps 02/29/24 Rx oxycodone-acetaminophen 7.5 mg-325 1 tab PO TID PRN pain #90 tabs 03/02/24 Rx mg tablet (Endocet) pregabalin 100 mg capsule (Lyrica) 100 mg PO TID #90 caps 03/02/24 Rx oxycodone-acetaminophen 7.5 mg-325 1 tab PO TID PRN pain #90 tabs 03/30/24 Rx mg tablet (Percocet) pregabalin 100 mg capsule (Lyrica) 100 mg PO TID #90 caps 03/30/24 Rx Allergies Allergy/AdvReac Type Severity Reaction Status Date / Time No Known Drug Allergies Allergy Verified 06/02/23 06:58 Exam Constitutional Documenting provider has reviewed patient's vital signs: yes Common normals: no apparent distress, oriented x3, healthy appearing, alert and well nourished General appearance: cooperative HENCT Common normals: normocephalic, hearing grossly normal bilaterally and moist oral mucous membranes Head and scalp: normocephalic Eye Common normals: PERRL Pupil: PERRL Neck & C-Spine Common normals: full ROM General: normal visual inspection Chest Common normals: inspection of chest normal Respiratory Common normals: normal respiratory effort, no retractions and no use of accessory muscles Back & Pelvis Thoracic spine/upper back: normal to inspection and thoracic ROM normal Lumbar spine/lower back: ROM limited, pain with ROM and straight leg raise negative bilaterally Sacroiliac joints: SI joint(s) abnormal Other: positive fabers/fadirs gaenslens and thigh thrust, tender over bilateral PSIS tenderness over bilateral GTB Extremity Common normals: normal to inspection and full ROM Right lower extremity: knee joint Left lower extremity: knee joint Other: R/L knee pain, limited ROM, decrease in strength. Neuro Common normals: oriented x3, CN's II-XII intact bilaterally, moves all extremities, no focal motor deficits, no sensory deficits noted and deep tendon reflexes 2+ bilaterally Sensorium/orientation: alert Gait (neuro): antalgic Motor exam: strength 5/5 throughout and no movement abnormalities noted Psych Common normals: mental status grossly normal, thought process normal, cooperative, affect normal, speech normal and activity/motor behavior normal Speech: normal speech Thought process: normal thought process Results Additional Findings Additional findings: If on a controlled substance or opioids, I have checked an [place]AR[place] report on this patient and there are no aberrancies noted in the prescribing history.??If on a controlled substance or opioid a drug screen was completed and reviewed within the last year, and if there has not been a drug screen completed we ordered one today to monitor higher risk, state monitored pain medication use. As part of providing excellent, safe, comprehensive care, the following was completed at our patient's visit: 1. A medication reconciliation and review to ensure accurate knowledge of current/active medications, including asking our patients to inform us about any [id number] medications or herbal remedies/nutritional supplements/alternative remedies. 2. A review to specifically ensure our patients have had annual screening for screening for depression, screening for tobacco use, and screening for unhealthy alcohol use. For concerning screenings had a discussion with the patient, provided patient education, and recommended follow-up with primary care provider when appropriate. If patient noted with a risk of falling, they received education on strength, gait, and balance training to prevent future risk of falling. Assessment and Plan Assessment and Plan (1) Failed back syndrome: (2) Chronic prescription opiate use: Assessment and Plan: I feel these medications are improving the patient's quality of life and allow them to tolerate activities of daily living as well as participate in recreational activity.? The patient does not report intolerable side effects. The patient is NOT opioid naive and non-pharmacologic and non-opioid treatment has failed to significantly relieve the patient's pain and improve functionality. The patient has a diagnosis that is related to a somatic or visceral pain etiology. ? ?? I reviewed with the patient the potential risks and side effects with the use of? opioid medications including but not limited to respiratory depression,? sedation, and even . I verified the patient has access to naloxone should? these effects occur. I advised the patient to avoid the use of any other? sedation substances including alcohol, THC, and benzodiazepines while? taking opioid medications due to the risk of compounding side effects and? detrimental outcomes. I reviewed the [employer], pain treatment agreement, urine? drug screen, and opioid start talking forms. The patient was advised to let? their family know they had Naloxone in case they would need to administer? the medication.? ?? A drug screen was completed within the last year, and no aberrancies were noted regarding their use of controlled substances. The patient understands they are subject to the terms and conditions of the pain contract that they have signed. ? ?? I have checked an OARRS report on this patient today and there are no aberrancies noted in the prescribing history.? (3) Bilateral knee pain: (4) Obesity: Assessment and Plan: The patient was counseled that proper dietary changes and consistent participation in a home exercise plan can lead to weight loss. Weight loss can help to improve functionality in patients with chronic pain.? (5) Lumbar spondylosis: (6) Spinal stenosis of lumbar region: (7) Chronic knee pain after total replacement of knee joint: (8) Myalgia, other site: Plan continue pregabalin 100mg TID, risks vs benefits reviewed continue percocet to 7.5-325mg BID-TID PRN moderate to severe pain, continues to find functional improvement without side effects. reports shes able to stand and walk for longer periods of time and complete housework/cook with assistance of medication, pain goes from 6-7 to 2-3 for around four hours. narcan discussed and prescribed at previous visit continue zanaflex 4mg HS PRN pain/spasms continue f/u with orthopedics for shoulder MRI/potential surgery, pt verbalized agreement to call if surgery scheduled and stop our opioids while surgeon manages post-op pain f/u 3 months for medication management, sooner if needed. will revisit spinal cord stim trial at that time
== END 2024-04-27 09:57 | disposition home or self-care (01) ==
PROVIDERS: Visit Provider Nurse Practitioner
DX: M96.1 Postlaminectomy syndrome, not elsewhere classified (principal); Z79.891 Long term (current) use of opiate analgesic; M25.561 Pain in right knee; M25.562 Pain in left knee; E66.9 Obesity, unspecified; M47.816 Spondylosis without myelopathy or radiculopathy, lumbar region; M48.062 Spinal stenosis, lumbar region with neurogenic claudication; M79.18 Myalgia, other site
CPT/HCPCS: G0463

== ENCOUNTER 2024-07-27 09:06 | Outpatient (OUT) | payer MEDICARE, SELFPAY ==
--- OUTSIDE RECORDS SUMMARY | 2024-07-20 08:30 | XMS_ITS | Encounter Summary ---
Author Organization [facility] Address [address] [place] [address] Care Team Providers Care Art Specialist Name Role Phone Jennifer Christine MD Primary Care Provider [phone] Pastora Kohler UNIT MANAGER RN Unavailable [phone] Pastora Kohler UNIT MANAGER RN Unavailable [phone] Reason for Visit * Reason Comments Follow-up Encounter Details Date Type Department Care Team (Late st Contact Info) Description 07/20/2024 8:30 AM EDT Office Visit [facility] [address] [place] [address] Sean Torres PA [address] [facility] [address] [place], [place] [id number] S/P arthroscopy of right shoulder (Primary Dx) Social History Tobacco Use Types Packs/Day Years Used Date Smoking Tobacco: Never Smokeless Tobacco: Never Alcohol Use Standard Drinks/Week Comments Not Currently 0 (1 standard drink = 0.6 oz pur e alcohol) caffeine: 2-3 cups per day PHQ-2 Answer Date Recorded Patient Health Questionnaire-2 Score 0 06/14/2024 Comments Unknown Sex and Gender Information Value Date Recorded Sex Assigned at Not on file Legal Sex Female 6:56 PM EDT Gender Identity Not on file Sexual Orientation Not on file documented as of this encounter Progress Notes * SERGIO Iglesias - 07/20/2024 8:30 AM EDT Images from the original note were not included. Orthopedic Office note: NAME: Lesli Clay : 1960 EST PT S/P RT SHOULDER SCOPE 06/17/24 (4 WKS 5 DAYS) @ [facility]- WEARING ULTRA SLING WITHOUT THE PILLOW. SORENESS IN UPPER ARM. +PERCOCET AND TYL PRN. DENIES N/T. DENIES POPPING, GRINDING. DOING HEP. DOES NOT WAKE AT HS. DENIES ISSUES WITH INCISIONS. Right Shoulder Exam Tenderness The patient is experiencing no tenderness (compartments soft). Range of Motion Active abduction: 80 Passive abduction: 120 (gentle pendulums easily) Extension: 40 External rotation: 70 Forward flexion: 70 (PROM 150) Internal rotation 0 degrees: Lumbar Muscle Strength Right shoulder normal muscle strength: Fires deltoid and rotator cuff. Other Erythema: absent Scars: absent (portals well healed) Sensation: normal Pulse: present Comments: The operative upper extremity was noted to be neurovascularly unchanged. Sensation to light touch was intact to all dermatomes to operative upper extremity. Radial and ulnar pulses were present and equal bilaterally. Patient was able to motor elbow wrist and fingers in all anatomic planeswith 5 out of 5 strength on the operative upper extremity. Compartments were soft to operative upper extremity. There was no evidence of infection or ascending lymphangitis to operative extremity. No orders of the defined types were placed in this encounter. Procedures Results ICD-10-CM 1. S/P arthroscopy of right shoulder Z98.890 S/p Biceps tenodesis and SAD Declined formal therapy as recommended. Doing HEP for PROM. Assessment & Plan Postoperative status following subacromial decompression and biceps tenodesis. She is demonstrating satisfactory progress with improved pain management. However, there is minimalstiffness observed during passive motion at the end range. She has not been compliant with the use of her sling for the past 2 days, which is against medical advice. The significance of safeguarding her biceps tenodesis was emphasized. She also reported an incidental fall, resulting in knee abrasions. It was advised that she refrain from lifting, pushing, or pulling with her right arm. She was corrected when she attempted to use her right arm for support while rising from a chair. She acknowledged the need to avoid exerting any weight or resistance on the arm. A home exercise plan was provided, which includes passive and active range of motion exercises. She expressed a preference for home therapy over formal therapy due to cost considerations. She committed to performing these exercises twice daily and to apply ice as needed. The importance of compliance was stressed and she expressed gratitude for the care provided. The long-term impact of her fall and early use of the arm on the healing process remains to be seen. Treatment plan: A home exercise plan was provided, which includes passive and active range of motion exercises. She committed to performing these exercises twice daily and to apply ice as needed. Follow-up: The patient will follow up in 5 weeks for reevaluation. PROCEDURE Procedure Performed Subacromial decompression and biceps tenodesis Questions answered in laymen terms at the bedside. The diagnosis, home exercise plan and any ongoing restrictions/ recommendations reviewed. If unable to be reached in office, I recommend evaluation at nearest Emergency Room if any symptoms worsened or new symptoms develop for requiring urgent evaluation. Visit was preformed using [employer]-commercial airplane pilot speech recognition. documented in this encounter Plan of Treatment Upcoming Encounters Date Type Department Care Team (Late st Contact Info) Description 08/24/2024 8:30 AM EDT Office Visit [facility] [address] [place] [phone] Sean Torres PA [address] [facility] [address] [place] [address] documented as of this encounter Visit Diagnoses Diagnosis S/P arthroscopy of right shoulder- Primary documented in this encounter Care Teams Art Specialist Relationship Specialty Start Date End Date Jennifer Christine MD [address] [place], [place] [id number] PCP - General Family Medicine 04/10/23 Pastora Kohler NP [address] [place], [place] [id number] PCP - [facility] 02/16/23 03/18/80 Pastora Kohler NP [address] [place] [address] Nurse Practitioner Family Medicine 04/10/23 documented as of this encounter
--- OUTSIDE RECORDS SUMMARY | 2024-07-27 09:08 | XMS_ITS | Encounter Summary ---
Author Organization [facility] Address [address] [place] [address] Care Team Providers Care Bandage Wrapping Machine Operator Name Role Phone Mi Cabrera MD Primary Care Provider [phone] Pastora Kohler LAUNDRY PRESSER Unavailable [phone] Pastora Kohler LAUNDRY PRESSER Unavailable [phone] Encounter Details Date Type Department Care Team (Late st Contact Info) Description 05/19/2023 Clinisync Result Encounter [facility] External Department Unsolicited Mi Cabrera MD [address] [place] [address] Social History Tobacco Use Types Packs/Day Years Used Date Smoking Tobacco: Never Smokeless Tobacco: Never Alcohol Use Standard Drinks/Week Comments Not Currently 0 (1 standard drink = 0.6 oz pur e alcohol) caffeine: 3-4 cups per day PHQ-2 Answer Date Recorded Patient Health Questionnaire-2 Score 0 05/14/2023 Comments Unknown Sex and Gender Information Value Date Recorded Sex Assigned at Not on file Legal Sex Female 6:56 PM EDT Gender Identity Not on file Sexual Orientation Not on file documented as of this encounter Plan of Treatment Upcoming Encounters Date Type Department Care Team (Late Contact Info) Description 08/24/2024 8:30 AM EDT Office Visit [facility] [address] [place] [address] Sean Torres PA [address] [facility] [address] [place] [address] documented as of this encounter Procedures Procedure Name Priority Date/Time Associated Diagnosis Comments CA ECHO DOPPLER COMPLETE 05/19/2023 7:15 PM EDT documented in this encounter Results * CA ECHO DOPPLER COMPLETE (05/19/2023 7:15 PM EDT) Anatomical Region Laterality Modality Other 05/19/2023 7:15 PM EDT Narrative 05/19/2023 7:16 PM EDT [address] [address] Cardiology Report Signed Patient: JEANETTE FRAGA MR#: [id number] : 1960 Acct:[id number] Age/Sex: 63 / F ADM Date: 05/18/23 Loc: CARD Attending Dr: MI CABRERA Ordering Physician: MI CABRERA Date of Service: 05/18/23 Procedure(s): CA echo doppler complete Accession Number(s): [id number] cc: [facility] ; MI CABRERA Patient Name: JEANETTE FRAGA MR#: [id number] : 1960 Exam Date: 05/18/2023 Ordering Doctor: DR MI CABRERA M.D. ECHOCARDIOGRAM REPORT PROCEDURE: CA ECHO DOPPLER COMPLETE INDICATIONS: Systolic murmur COMPARISON: None. DESCRIPTION: COMPLETE ECHOCARDIOGRAM Real-time transthoracic echocardiography with 2D, M-mode, spectral and color flow Doppler performed. QUALITY: Technical quality was adequate. LEFT VENTRICLE: Normal chamber size. Moderate concentric left ventricular hypertrophy. Global left ventricular systolic function is normal. LV EF: Visual estimation of left ventricular ejection fraction is 55% DIASTOLIC: ATRIAL SEPTUM: LEFT ATRIUM: Normal chamber size. RIGHT ATRIUM: Mild dilatation. RIGHT VENTRICLE: Normal chamber size. Normal right ventricular systolic function. TRICUSPID VALVE: Normal mobility and thickness. No stenosis with trivial regurgitation. Mild pulmonary hypertension. RVSP 35 mmHg MITRAL VALVE: Normal mobility and thickness. No evidence of mitral valve stenosis. There is no mitral annular calcification. Trivial mitral regurgitation. AORTIC VALVE: Normal trileaflet appearance. Moderately calcified aortic valve. Moderately diminished mobility. Doppler velocity suggest moderate aortic valve stenosis. DVI 0.38, ALIYA 1.3 cm?, Vmax 2.3 m/s, Mean gradient 11mmHg. No aortic regurgitation. AORTIC ROOT: Normal diameter and appearance. PULMONIC VALVE: Normal thickness and mobility. No stenosis. No regurgitation. PERICARDIUM: No evidence of pericardial effusion. IVC: Collapses with inspirations. PLEURA: CONCLUSION: 1. Moderate concentric left ventricular hypertrophy with normal systolic function. LVEF is estimated at 55%. 2. Normal right ventricular size and systolic function. 3. Moderate aortic valve stenosis. 4. Normal right-sided pressures. Adult Echocardiography Procedure Report Left Ventricle LVEDD (3.7 - 5.6 cm): 4.99 cm LVESD (2.2 - 4.0 cm): 3.56 cm LVIVS thickness (0.6 - 1.2 cm): 1.45 cm LVPW thickness (0.5 - 1.0 cm): 1.28 cm e': 0.14 m/s E - e': 5.89 LVOT Max Gradient: 3.10 mm[Hg] LVOT Area (cm2): 0.88 m/s Peak Velocity (LVOT): 0.88 m/s Mean Velocity (LVOT): 0.52 m/s LVOT Diameter 2.11 cm Left Atrium LA Volume Index (2D A2C): 31.96 ml/m2 Left Atrium Systolic Dimension: 3.80 cm Mitral Valve MV E to A Ratio: 0.88 Mitral Valve A-Wave Peak Velocity: 0.92 m/s Mitral Valve E-Wave Peak Velocity: 0.81 m/s Right Ventricle RV Internal Diastolic Dimension: 3.61 cm Aorta AO Root Diam: 2.88 cm Ascending Ao Diam: 2.71 cm Aortic Valve AoV Area (Peak Igor): 1.33 cm2, 1.33 cm2 AoV Area (VTI): 1.12 cm2, 1.12 cm2 Peak Velocity(Antegrade Flow): 2.30 m/s Peak Gradient(Antegrade Flow): 21.19 mm[Hg] Mean Velocity(Antegrade Flow): 1.55 m/s Mean Gradient(Antegrade Flow): 10.97 mm[Hg] Velocity Time Integral: 43.95 cm Tricuspid Valve Peak Velocity (Regurgitant Flow): 1.60 m/s, 2.83 m/s Pulmonic Valve Mean Gradient: 3.75 mm[Hg], 3.46 mm[Hg] Mean Velocity: 0.92 m/s, 0.90 m/s Peak Velocity: 1.25 m/s, 1.32 m/s Peak Gradient: 6.86 mm[Hg], 5.72 mm[Hg], 7.01 mm[Hg] Right Atrium Right Atrium Systolic Pressure: 78.00 ml, 78.00 ml Dictated by: Akash Sellers M.D. on 05/19/2023 at 19:10 Approved by: Akash Sellers M.D. on 05/19/2023 at 19:15 Dictated By: AKASH SELLERS Signed By: 05/19/231915 DD/ 14 TD/TT: Vehicle Inspector: Procedure Note Radiology, Radiologist, MD - 05/19/2023 [place] [address] Cardiology Report Signed Patient: JEANETTE FRAGA MMR#: [id number] : 1960cct:[id number] Age/Sex: 63 / FADM Date: 05/18/23 Loc: CARD Attending Dr: MI CABRERA Ordering Physician: MI CABRERA Date of Service: 05/18/23 Procedure(s): CA echo doppler complete Accession Number(s): [id number] cc: [facility] ; MI CABRERA Patient Name: JEANETTE FRAGA MR#: [id number] : 1960 Exam Date: 05/18/2023 Ordering Doctor: DR MI CABRERA M.D. ECHOCARDIOGRAM REPORT PROCEDURE: CA ECHO DOPPLER COMPLETE INDICATIONS: Systolic murmur COMPARISON: None. DESCRIPTION: COMPLETE ECHOCARDIOGRAM Real-time transthoracic echocardiography with 2D, M-mode, spectral and color flow Dopplerperformed. QUALITY: Technical quality was adequate. LEFT VENTRICLE: Normal chamber size. Moderate concentric leftventricular hypertrophy. Global left ventricular systolic function is normal. LV EF: Visual estimation of left ventricular ejection fraction is 55% DIASTOLIC: ATRIAL SEPTUM: LEFT ATRIUM: Normal chamber size. RIGHT ATRIUM: Mild dilatation. RIGHT VENTRICLE: Normal chamber size. Normal right ventricularsystolic function. TRICUSPID VALVE: Normal mobility and thickness. No stenosis with trivial regurgitation. Mild pulmonary hypertension. RVSP 35 mmHg MITRAL VALVE: Normal mobility and thickness. No evidence of mitralvalve stenosis. There is no mitral annular calcification. Trivial mitral regurgitation. AORTIC VALVE: Normal trileaflet appearance. Moderately calcifiedaortic valve. Moderately diminished mobility. Doppler velocity suggest moderate aortic valve stenosis. DVI 0.38, ALIYA 1.3 cm?, Vmax 2.3 m/s, Mean gradient 11mmHg. No aortic regurgitation. AORTIC ROOT: Normal diameter and appearance. PULMONIC VALVE: Normal thickness and mobility. No stenosis. Noregurgitation. PERICARDIUM: No evidence of pericardial effusion. IVC: Collapses with inspirations. PLEURA: CONCLUSION: 1. Moderate concentric left ventricular hypertrophy with normal systolic function. LVEF is estimated at 55%. 2. Normal right ventricular size and systolic function. 3. Moderate aortic valve stenosis. 4. Normal right-sided pressures. Adult Echocardiography Procedure Report Left Ventricle LVEDD (3.7 - 5.6 cm): 4.99 cm LVESD (2.2 - 4.0 cm): 3.56 cm LVIVS thickness (0.6 - 1.2 cm): 1.45 cm LVPW thickness (0.5 - 1.0 cm): 1.28 cm e': 0.14 m/s E - e': 5.89 LVOT Max Gradient: 3.10 mm[Hg] LVOT Area (cm2): 0.88 m/s Peak Velocity (LVOT): 0.88 m/s Mean Velocity (LVOT): 0.52 m/s LVOT Diameter 2.11 cm Left Atrium LA Volume Index (2D A2C): 31.96 ml/m2 Left Atrium Systolic Dimension: 3.80 cm Mitral Valve MV E to A Ratio: 0.88 Mitral Valve A-Wave Peak Velocity: 0.92 m/s Mitral Valve E-Wave Peak Velocity: 0.81 m/s Right Ventricle RV Internal Diastolic Dimension: 3.61 cm Aorta AO Root Diam: 2.88 cm Ascending Ao Diam: 2.71 cm Aortic Valve AoV Area (Peak Igor): 1.33 cm2, 1.33 cm2 AoV Area (VTI): 1.12 cm2, 1.12 cm2 Peak Velocity(Antegrade Flow): 2.30 m/s Peak Gradient(Antegrade Flow): 21.19 mm[Hg] Mean Velocity(Antegrade Flow): 1.55 m/s Mean Gradient(Antegrade Flow): 10.97 mm[Hg] Velocity Time Integral: 43.95 cm Tricuspid Valve Peak Velocity (Regurgitant Flow): 1.60 m/s, 2.83 m/s Pulmonic Valve Mean Gradient: 3.75 mm[Hg], 3.46 mm[Hg] Mean Velocity: 0.92 m/s, 0.90 m/s Peak Velocity: 1.25 m/s, 1.32 m/s Peak Gradient: 6.86 mm[Hg], 5.72 mm[Hg], 7.01 mm[Hg] Right Atrium Right Atrium Systolic Pressure: 78.00 ml, 78.00 ml Dictated by: Akash Sellers M.D. on 05/19/2023 at 19:10 Approved by: Akash Sellers M.D. on 05/19/2023 at 19:15 Dictated By: AKASH SELLERS Signed By:05/19/231915 DD/ 14 TD/TT: Vehicle Inspector: us Mi Cabrera MD [facility] Final Resul t documented in this encounter Visit Diagnoses Not on filedocumented in this encounter Care Teams Bandage Wrapping Machine Operator Relationship Specialty Start Date End Date Mi Cabrera MD [address] [place] [address] PCP - General Family Medicine 04/10/23 Pastora Kohler NP [address] [place] [address] PCP - [facility] 02/16/23 03/18/80 Pastora Kohler NP [address] [place], [place] [id number] Nurse Practitioner Family Medicine 04/10/23 documented as of this encounter
--- OUTSIDE RECORDS SUMMARY | 2024-07-27 09:08 | XMS_ITS | Patient Health Record ---
Author Organization [facility] [place] Address [address] [place] [address] Care Team Providers Care Stem Setter Name Role Phone Judith Newman DO Primary Care Provider Unavailabl e Allergies No Known Allergies Reason For Referral No Information Medications Medication SIG (Take, Route, Frequency, Duration) Notes Start Date End Date Status metFORMIN HCl 1000 MG 1 tablet with a me al Orally Once a day for 30 day(s) Active Nortriptyline HCl 50 MG 1 capsule Orally Once a day for 30 day(s) Active Omeprazole 20 MG as directed Orally Active Ozempic Active buPROPion HCl ER (XL) 300 MG 1 tablet in the morning Orally Once a day for 30 day(s) Active HYDROcodone-Acetaminophen 5-325 MG 1 tablet as needed Orally every 6 hrs Active Jardiance 10 MG 1 tablet Orally Once a day for 30 day(s) Active Lisinopril-hydroCHLOROthi azide 20-12.5 MG 1 tablet Orally Once a day for 30 day(s) Active PriLOSEC OTC 20 MG 1 tablet 30 minutes before morning meal Orally Daily Not-Taking Tylenol with Codeine #3 300-30 MG 1 tablet as needed Orally TID Not-Taking Baclofen 10 MG 1 tablet as needed Orally Twice a day Active Wellbutrin XL 300 MG 1 tablet in the mor blanca Orally Daily Not-Taking ARIPiprazole 15 MG 1 tablet Orally Once a day for 30 day(s) Active Atorvastatin Calcium 40 MG 1 tablet Orally Once a day for 30 day(s) Active Lisinopril-hydroCHLOROthi azide 20-12.5 MG 2 tablets Orally Daily N ot-Taking Metoprolol Succinate 50 MG 1 capsule Orally Once a day Not-Taking [place] 5-325 MG 1 tablet as needed Orally every 6 hrs Not-Taking Pamelor 50 MG 2 capsules Orally Daily Not-Taking Basaglar KwikPen 100 UNIT/ML as directed Subcutaneous Not-Taking Clotrimazole 1 % 1 application Externally BID Not-Taking Glucophage 500 mg 2 Tablets Orally BID Not-Taking Lisinopril 10 MG 1 tablet Orally Once a day for 30 day(s) Not-Taking Atorvastatin Calcium 40 MG 1 tablet Orally Once a day for 30 day(s) Not-Taking Baclofen 10 MG 1 tablet with food o r milk Orally Daily Not-Taking Pregabalin 75 MG 1 capsule Orally Twi ce a day Active Social History Tobacco Use: Social History Observation Description Date Details (start date - stop date) Former Smoker NA - NA Tobacco Use/Smoking Question Answer Notes Patient is a former smoker Problems Problem Type SNOMED Code ICD Code Onset Dates Problem Status W/U Status Risk Notes Problem [id number] Essential (primary) hypertension (I10) Active confirmed Problem 477329612 Type 2 diabetes mellitus without complications (E11.9) Active confirmed Problem 414847532 Chronic kidney disease, stage 2 (mild) (N18.2) Active confirmed Problem 927758670 watermaster (current) use of insulin (Z79.4) Active confirmed Problem 085262854 Chronic kidney disease, stage 3a (N18.31) Active confirmed Plan Of Treatment No Information Insurance Providers Payer Name Payer Address Payer Phone Subscriber Number Group Number Insured Name Patient Relationship to Insured Coverage Start Date Coverage End Date [employer] MED[employer]VANTAGE [address] [address] [place] [address] [id number] Lesli Clay Self - patient is the insured 2 Medical (General) History Medical History History ICD Code HTN Obesity GERD Diabetes mellitus Anxiety Depression Fibromyalgia Osteoarthritis RSD Surgical History Surgery Date(Month/Year) Knee replacement, total right 09/01 delivery; 3 D & C 06/10/2013 Hysteroscopy 06/10/2013 Rotator cuff repair- Both c5-c6 plates and screws Left knee surpery torn ligaments: Left Lower back surgery; 2x 1987, 2010, 2016
--- OUTSIDE RECORDS SUMMARY | 2024-07-27 09:08 | XMS_ITS | Encounter Summary ---
Author Organization [facility] Address [address] [place] [address] Care Team Providers Care Electrical Instrument Technician Name Role Phone Jennifer Christine MD Primary Care Provider [phone] Pastora Kohler TREATING ENGINEER Unavailable [phone] Pastora Kohler TREATING ENGINEER Unavailable Encounter Details Date Type Department Care Team (Late st Contact Info) Description 08/07/2023 Abstract [facility] [address] [place] [address] Jennifer Christine MD [address] [place] [address] Social History Tobacco Use Types [...] Office Visit [facility] [address] [place] [address] Sean Torres PA [address] [facility] [address] [place] [address] documented as of this encounter Visit Diagnoses Not on filedocumented in this encounter Care Teams Electrical Instrument Technician Relationship Specialty Start Date End Date Jennifer Christine MD [address] [place], [place] [phone] PCP - General Family Medicine 04/10/23 Pastora Kohler NP [address] [place], [place] [address] PCP - [facility] 02/16/23 03/18/80 Pastora Kohler NP [address] [place], [place] [phone] Nurse Practitioner Family Medicine 04/10/23 documented as of this encounter
--- OUTSIDE RECORDS SUMMARY | 2024-07-27 09:08 | XMS_ITS | Encounter Summary ---
Author Organization [id number] [address] [place] [address] Care Team Providers Care Testing Consultant Name Role Phone Judith Newman Primary Care Provider [phone] Encounter Details Date Type Department Care Team (Late st Contact Info) Description 06/04/2023 Orders Only [facility] On[facility] [address] [place] [phone] Ref Prov, [place] [address] Social History Tobacco Use Types Packs/Day Years Used Date Smoking Tobacco: Former Cigarettes Q uit: 06/18/2010 Smokeless Tobacco: Never Alcohol Use Standard Drinks/Week Comments Never 0 (1 standard drink = 0.6 oz pur e alcohol) Childcare Answer Date Recorded Childcare Unknown 07/21/2018 Employment Answer Date Recorded Employment Unknown 07/21/2018 Purpose - Life Answer Date Recorded Purpose and direction in life Unknown Comments No Sex and Gender Information Value Date Recorded Sex Assigned at Not on file Legal Sex Female 11:42 AM EDT Gender Identity Not on file Sexual Orientation Not on file documented as of this encounter Plan of Treatment Not on file documented as of this encounter Procedures Procedure Name Priority Date/Time Associated Diagnosis Comments SURGICAL PATHOLOGY Routine 06/04/2023 3:45 PM EDT documented in this encounter Results * Surgical Pathology (06/04/2023 3:45 PM EDT) us Not In System Ref Prov PATHOLOGY/CYTOLOGY ORDERA BLES Final Result documented in this encounter Visit Diagnoses Not on filedocumented in this encounter Care Teams Testing Consultant Relationship Specialty Start Date End Date Judith Newman DO [address] [place] [address] PCP - General Family Medicine 02/19/22 documented as of this encounter
--- OUTSIDE RECORDS SUMMARY | 2024-07-27 09:08 | XMS_ITS | Encounter Summary ---
Author Organization [facility] Address [address] [place] [address] Care Team Providers Care Branch Retail Executive Name Role Phone Jennifer Christine MD Primary Care Provider [phone] Pastora Kohler VP CORPORATE PARTNERSHIPS Unavailable [phone] Pastora Kohler VP [employer]PORATE [employer]NERSHIPS Unavailable [phone] Encounter Details Date Type Department Care Team (Late st Contact Info) Description 07/20/2024 Bamboo flowsheet [facility] [address] [place] [address] Sean Torres PA [address] [facility] [address] [place] [address] Social History Tobacco Use Types Packs/Day Years [...] EDT Office Visit [facility] [address] [place] [phone] Sean Torres PA [address] [facility] [address] [place] [address] documented as of this encounter Visit Diagnoses Not on filedocumented in this encounter Care Teams Branch Retail Executive Relationship Specialty Start Date End Date Jennifer Christine MD [address] [place], [place] [phone] PCP - General Family Medicine 04/10/23 Pastora Kohler NP [address] [place], [place] [phone] PCP - [facility] 02/16/23 03/18/80 Pastora Kohler NP [address] [place], [place] [phone] Nurse Practitioner Family Medicine 04/10/23 documented as of this encounter
--- OUTSIDE RECORDS SUMMARY | 2024-07-27 09:08 | XMS_ITS | Encounter Summary ---
Author Organization [facility] Address [address] [place] [address] Care Team Providers Care Refrigerating Engineer Name Role Phone Jennifer Christine MD Primary Care Provider [phone] Pastora Kohler AIR CONDITIONING SUPERVISOR Unavailable [phone] Pastora Kohler AIR CONDITIONING SUPERVISOR Unavailable [phone] Reason for Visit * Reason Onset Date Comments Med Refill 12/21/2023 Encounter Details Date Type Department Care Team (Late st Contact Info) Description 12/21/2023 Refill [facility] [address] [place] [address] Jennifer Christine MD [address] [place] [address] Social History Tobacco Use Types [...] on file documented as of this encounter Miscellaneous Notes * Telephone Encounter - Paula Coleman - 12/22/2023 4:36 PM EST Pt got this from Dr. Sanford, she will call that office to get it refilled. documented in this encounter Plan of Treatment Upcoming Encounters Date Type Department Care Team (Late st Contact Info) Description 08/24/2024 8:30 AM EDT Office Visit [facility] [address] [facility] [place] [phone] Sean Torres, PA [address] [facility] [address] [place] [address] documented as of this encounter Visit Diagnoses Not on filedocumented in this encounter Care Teams Refrigerating Engineer Relationship Specialty Start Date End Date Jennifer Christine MD [address] [place] [address] PCP - General Family Medicine 04/10/23 Pastora Kohler NP [address] [place] [address] PCP - [facility] 02/16/23 03/18/80 Pastora Kohler NP [address] [place] [address] Nurse Practitioner Family Medicine 04/10/23 documented as of this encounter
--- OUTSIDE RECORDS SUMMARY | 2024-07-27 09:08 | XMS_ITS | Encounter Summary ---
Author [id number] [address] [place] [address] Care Team Providers Care Compliance Intern Name Role Phone Judith Newman Primary Care Provider [phone] Encounter Details Date Type Department Care Team (Late st Contact Info) Description 06/03/2023 Orders Only [facility] Gyne[facility] Oncology [address] [place] [phone] Ref Prov, [place] [address] Social History Tobacco Use Types Packs/Day Years [...] Date/Time Associated Diagnosis Comments SURGICAL PATHOLOGY Routine 06/03/2023 10:01 AM EDT documented in this encounter Results * Surgical Pathology (06/03/2023 10:01 AM EDT) us Not In System Ref Prov PATHOLOGY/CYTOLOGY ORDERA BLES Final Result documented in this encounter Visit Diagnoses Not on filedocumented in this encounter Care Teams Compliance Intern Relationship Specialty Start Date End Date Judith Newman DO [address] [place] [address] PCP - General Family Medicine 02/19/22 documented as of this encounter
--- OUTSIDE RECORDS SUMMARY | 2024-07-27 09:08 | XMS_ITS | Encounter Summary ---
Author Organization [facility] Address [address] [place] [address] Care Team Providers Care Mds Manager Name Role Phone Jennifer Christine MD Primary Care Provider [phone] Pastora Kohler CAREER COACH Unavailable [phone] Pastora Kohler CAREER COACH Unavailable [phone] Encounter Details Date Type Department Care Team (Late st Contact Info) Description 05/12/2023 Clinisync Result Encounter [facility] External Department Unsolicited Stefany Webb, DO [address] [place] [address] Dr Igor Nair [place], [place] [id number] Social History Tobacco Use Types Packs/Day Years [...] on file documented as of this encounter Functional Status * Over the past 2 weeks, how often have you been bothered by any of the following problems? Question Answer Date of Assessment Author Little interest or pleasure in doing things Not at all 05/14/2023 1:00 PM EDAcacia Quintana MA Feeling down, depressed, or hopeless Not at all 05/14/2023 1:00 PM EDT Acacia Babb MA Patient Health Questionnaire-2 Score 0 05/14/2023 1:00 PM EDT Noa Babb MA documented as of this encounter Plan of Treatment Upcoming Encounters Date Type Department Care Team (Late st Contact Info) Description 08/24/2024 8:30 AM EDT Office Visit [facility] [address] [place] [phone] Sean Torres PA [address] [facility] [address] [place] [address] documented as of this encounter Procedures Procedure Name Priority Date/Time Associated Diagnosis Comments ECG 12-LEAD 05/12/2023 10:50 AM EDT documented in this encounter Results * ECG 12-LEAD (05/12/2023 10:50 AM EDT) Anatomical Region Laterality Modality Other 05/12/2023 10:5 0 AM EDT Narrative 05/12/2023 11:36 PM EDT [address] [address] Electrocardiograph Report Signed Patient: LESLI FRAGA MR#: [id number] : 1960 Acct:[id number] Age/Sex: 63 / F ADM Date: 05/12/23 Loc: PST Attending Dr: Stefany Webb D.O. Ordering Physician: Stefany Webb D.O. Date of Service: 05/12/23 Procedure(s): ECG 12 lead Accession Number(s): [id number] cc: [facility] Test Date: 2023-05-12 Pat Name: LESLI FRAGA Department: Room: - Gender: Female Customer Support Engineer: : 1960 Requested By: STEFANY WEBB Order Number: [id number] Reading MD: PJ CARREON Measurements Intervals [place] Rate: 78 P: 71 MA: 158 QRS: 23 QRSD: 118 T: 57 QT: 360 QTc: 412 Interpretive Statements SINUS RHYTHM MODERATE INTRAVENTRICULAR CONDUCTION DELAY [110+ ms QRS DURATION] No previous ECG available for comparison Electronically Signed On 05-12-2023 23:36:01 EDT by PJ CARREON Dictated By: Pj Carreon D.O. Signed By: 05/12/232335 DD/ 1050 TD/TT: Loader Operator/Ground Leader: Procedure Note Radiology, Radiologist, MD - 05/12/2023 [place] [address] Electrocardiograph Report Signed Patient: LESLI FRAGA MMR#: [id number] : 1960cct:[id number] Age/Sex: 63 / FADM Date: 05/12/23 Loc: PST Attending Dr: Stefany Webb D.O. Ordering Physician: Stefany Webb D.O. Date of Service: 05/12/23 Procedure(s): ECG 12 lead Accession Number(s): [id number] cc: [facility] Test Date: 2023-05-12 Pat Name: LESLI FRAGA Department: Room: - Gender: Female Customer Support Engineer: : 1960 Requested By: STEFANY WEBB Order Number: [id number] Reading MD: PJ CARREON Measurements Intervals [place] Rate: 78 P: 71 MA: 158 QRS: 23 QRSD: 118 T: 57 QT: 360 QTc: 412 Interpretive Statements SINUS RHYTHM MODERATE INTRAVENTRICULAR CONDUCTION DELAY [110+ ms QRS DURATION] No previous ECG available for comparison Electronically Signed On 05-12-2023 23:36:01 EDT by PJ CARREON Dictated By: Pj Carreon D.O. Signed By:05/12/232335 DD/ 1050 TD/TT: Loader Operator/Ground Leader: us Stefany Webb DO [facility] Final Result documented in this encounter Visit Diagnoses Not on filedocumented in this encounter Care Teams Mds Manager Relationship Specialty Start Date End Date Jennifer Christine MD [address] [phone] (Work) PCP - General Family Medicine 04/10/23 Pastora Kohler NP [address] [place], [place] [id number] PCP - [facility] 02/16/23 03/18/80 Pastora Kohler NP [address] [place] [address] Nurse Practitioner Family Medicine 04/10/23 documented as of this encounter
--- OUTSIDE RECORDS SUMMARY | 2024-07-27 09:08 | XMS_ITS | Encounter Summary ---
Author Organization [facility] [employer] Address [id number] [address] [place] [address] Care Team Providers Care Manager Membership Name Role Phone Judith Newman DO Primary Care Provider [phone] Reason for Referral * Cardiology (Routine) - Closed Specialty Diagnoses / Procedures Referred By Alok t Referred To Contact Diagnoses Endometrial cancer (CMS-HCC) Pre-op testing Procedures ECG 12 lead Edwin Moreno MD [address] [place] [address], [address] [place] [address] Phone: tel: fax: Referral ID Status Reason Start Date Expiration Date Visits Re quested Visits Authorized [id number] Closed 06/03/2023 06/02/2024 1 1 Encounter Details Date Type Department Care Team (Late st Contact Info) Description 06/03/2023 Orders Only [facility] On[facility] [address] [place] [address] [address] [place] [address] Edwin Moreno MD [address] [place] [address], [address] [place] [address] Endometrial cancer (CMS-HCC) (Primary Dx); Pre-op testing Social History Tobacco Use Types Packs/Day Years [...] on file documented as of this encounter Results * (ABNORMAL) Comprehensive metabolic panel (06/04/2023 7:54 AM EDT) Sodium 137 134 - 146 mmol/L 06/04/2023 1:35 PM EDT [facility] Potassium, Bld 4.1 3.5 - 5.0 mmol/L 06/04/2023 1:35 PM EDT [facility] Chloride 97(L) 98 - 109 mmol/L 06/04/2023 1:35 PM EDT [facility] CO2 31 22 - 32 mmol/L 06/04/2023 1:35 PM EDT [facility] Anion gap 9 5 - 15 mmol/L 06/04/2023 1:35 PM EDT [facility] BUN 16 5 - 27 mg/dL 06/04/2023 1:35 PM EDT [facility] Creatinine 0.92 0.40 - 1.00 mg/dL 06/04/2023 1:35 PM EDT [facility] Comment:METHOD TRACEABLE TO IDMS STANDARD Glucose 170(H) 65 - 99 mg/dL 06/04/2023 1:35 PM EDT [facility] Calcium 9.3 8.5 - 10.5 mg/dL 06/04/2023 1:35 PM EDT [facility] Total Protein 7.3 6.0 - 8.0 g/dL 06/04/2023 1:35 PM EDT [facility] Albumin 3.9 3.2 - 5.3 g/dL 06/04/2023 1:35 PM EDT [facility] Alkaline Phosphatase 107 39 - 130 U/L 06/04/2023 1:35 PM EDT [facility] AST 18 0 - 41 U/L 06/04/2023 1:35 PM EDT [facility] ALT 26 0 - 31 U/L 06/04/2023 1:35 PM EDT [facility] Total bilirubin 0.3 0.3 - 1.2 mg/dL 06/04/2023 1:35 PM EDT [facility] eGFR (CKD-EPI)non-rac e dependent 70 >59 ml/min/1.7 3sq.m 06/04/2023 1:35 PM EDT [facility] Comment: Reported eGFR is based on the CKD-EPI 2020 equation that does not use a race coefficient. PLASMA 06/04/2023 7:54 AM EDT 06/04/2023 7:56 AM EDT us Edwin Moreno MD LAB BLOOD ORDERABLES Final Resu lt MICHAEL [facility] [address] [place] [address] * (ABNORMAL) CBC auto differential (06/04/2023 7:54 AM EDT) White Blood Cells 9.1 4.0 - 11.0 X10E9/L 06/04/2023 2:34 PM EDT [facility] RBC count 4.19 3.80 - 5.20 X10E12/L 06/04/2023 2:34 PM EDT [facility] Hemoglobin 11.8 11.7 - 15.5 g/dL 06/04/2023 2:34 PM EDT [facility] Hematocrit 36.4 35 - 47 % 06/04/2023 2:34 PM EDT [facility] MCV 87 80 - 100 fL 06/04/2023 2:34 PM EDT [facility] MCH 28.3 27 - 34 pg 06/04/2023 2:34 PM EDT [facility] MCHC 32.5 32 - 36 g/dL 06/04/2023 2:34 PM EDT [facility] RDW 16.0(H) 11.5 - 15.0 % 06/04/2023 2:34 PM EDT [facility] Platelets 294 150 - 450 X10E9/L 06/04/2023 2:34 PM EDT [facility] MPV 7.9 7 - 12 fL 06/04/2023 2:34 PM EDT [facility] % neutrophils 67.4 % 06/04/2023 2:34 PM EDT [facility] % lymphocytes 23.6 % 06/04/2023 2:34 PM EDT [facility] % monocytes 6.5 % 06/04/2023 2:34 PM EDT [facility] % eosinophils 2.1 % 06/04/2023 2:34 PM EDT [facility] % Basophils 0.4 % 06/04/2023 2:34 PM EDT [facility] Neutrophils Absolute (A) 6.1 1.5 - 6.6 X10E9/L 06/04/2023 2:34 PM EDT [facility] Lymphocytes Absolute 2.1 1.0 - 3.5 X10E9/L 06/04/2023 2:34 PM EDT [facility] Monocytes Absolute 0.6 0 - 0.9 X10E9/L 06/04/2023 2:34 PM EDT [facility] Eosinophils Absolute 0.2 0.0 - 0.4 X10E9/L 06/04/2023 2:34 PM EDT [facility] Basophils Absolute 0.0 0.0 - 0.2 X10E9/L 06/04/2023 2:34 PM EDT [facility] Blood / Unknown 06/04/2023 7 :54 AM EDT 06/04/2023 7:56 AM EDT Edwin Moreno MD LAB BLOOD ORDERABLES Final Resu lt MICHAEL [facility] [address] [place] [address] * X-ray chest 2 views (06/04/2023 7:53 AM EDT) Anatomical Region Laterality Modality Chest N/A Computed Radiogr aphy 06/04/2023 9:53 AM EDT Narrative 06/04/2023 9:54 AM EDT Chest 2 views History: Anesthesia clearance, preadmission testing Endometrial cancer ([facility]); Pre-op testing Comparison: 02/19/2022 Findings: Chest 2 views. Stable cardia mediastinal silhouette. No new focal opacity, effusion or pneumothorax. Degenerative changes of the thoracic spine. Impression: No evident acute cardiopulmonary process. Finalized by Sami Bahena MD on 06/04/2023 9:54 AM Procedure Note Sami Bahena MD - 06/04/2023 Chest 2 views History: Anesthesia clearance, preadmission testing Endometrial cancer([facility] Pre-op testing Comparison: 02/19/2022 Findings: Chest 2 views. Stable cardia mediastinal silhouette. No new focal opacity, effusion orpneumothorax. Degenerative changes of the thoracic spine. Impression: No evident acute cardiopulmonary process. Finalized by Sami Bahena MD on 06/04/2023 9:54 AM us Edwin Moreno MD IMG DIAGNOSTIC IMAGING ORDERABL ES Final Result * ECG 12 lead (06/04/2023 7:41 AM EDT) 06/04/2023 7:41 AM EDT Narrative [facility]AC[facility] - 06/04/2023 9:10 AM EDT us Edwin Moreno MD ECG ORDERABLES Final Result [facility] documented in this encounter Visit Diagnoses Diagnosis Endometrial cancer (CMS-HCC)- Primary Malignant neoplasm of corpus uteri, except isthmus Pre-op testing Unspecified pre-operative examination Endometrial cancer (CMS-HCC) Malignant neoplasm of corpus uteri, except isthmus Pre-op testing Unspecified pre-operative examination Endometrial cancer (CMS-HCC) Malignant neoplasm of corpus uteri, except isthmus Pre-op testing Unspecified pre-operative examination documented in this encounter Care Teams Manager Membership Relationship Specialty Start Date End Date Judith Newman DO [address] [place] [address] PCP - General Family Medicine 02/19/22 documented as of this encounter
--- OUTSIDE RECORDS SUMMARY | 2024-07-27 09:08 | XMS_ITS ---
Author Organization [facility] [employer] Address [address] [address] Care Team Providers Care Big 6 Dealer Name Role Phone Pastora Kohler APRN - SENIOR MECHANICAL TECHNICIAN Primary Care P [facility] Active Problems Problem Noted Date Diagnosed Date History of 3 sections 07/28/2023 Chronic midline low back pain without sciatica 0 07/28/2023 Sleep apnea 07/28/2023 Aortic valve stenosis 07/28/2023 Poorly controlled diabetes mellitus 07/28/2023 Poorly-controlled hypertension 07/28/2023 Malignant neoplasm of endometrium 07/28/2023 Endometrial cancer 06/03/2023 Cancer Staging:Clinical stage from 07/28/2023:FIGO Stage IA(cT1a, cN0, cM0) - Signed by Marshall Emmanuel MD on 08/03/2023 Arthritis of left acromioclavicular joint 2022 Internal derangement of left knee 11/03/2022 Artificial knee joint present 11/03/2022 Spinal stenosis of lumbar region 11/03/2022 Difficulty walking 11/03/2022 Displacement of lumbar inter vertebral disc without myelopathy 11/03/2022 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 Muscle pain 11/03/2022 Obesity 11/03/2022 Osteoarthritis of knee 11/03/2022 Recurrent major depressive disorder, in partial remission 11/03/2022 Overview (06/12/2023): Last Assessment & Plan: On abilify, wellbutrin, hydroxyzine Type 2 diabetes mellitus wit h hyperglycemia, with long-term current use of insulin 11/03/2022 Overview (06/12/2023): Last Assessment & Plan: She is managed by [facility]. A1c is high and advised she needs to get this under control and discussed this being a risk factor for her surgery. She is taking multiple medications and recently started on ozempic. Says her BS are better now. On metformin, tresiba, and ozempic. Cellulitis of right lower extremity 12/06/2016 Chronic pain disorder 11/13/2016 Generalized anxiety disorder 11/13/2016 Severe episode of recurrent major depressive disorder, without psychotic features 11/13/2016 Hip pain 01/08/2016 Carpal tunnel syndrome 10/03/2011 Cervical spondylosis 02/23/2008 Primary hypertension 02/23/2008 Overview (06/12/2023): Last Assessment & Plan: Controlled on hyzaar and metoprolol Disorder of rotator cuff 02/23/2008 Current Treatment and Therapy Plans No current plan information found. Past Treatment and Therapy Plans No past plan information found. Lifetime Dose Tracking * Chemical Lifetime Dose Automatic Entry Manual Entr y Invasive Radiation 293 mGy 0 mGy 293 mGy Resolved Problems Problem Noted Date Diagnosed Date Resolved Date Post-operative state 07/28/2023 024
--- OUTSIDE RECORDS SUMMARY | 2024-07-27 09:08 | XMS_ITS | Encounter Summary ---
Author Organization [facility] Address [address] [place] [address] Care Team Providers Care Radar Systems Engineer Name Role Phone Jennifer Christine MD Primary Care Provider Pastora Kohler PILE DRIVING NOZZLEMAN Unavailable [phone] Pastora Kohler PILE DRIVING NOZZLEMAN Unavailable [phone] Encounter Details Date Type Department Care Team (Late st Contact Info) Description 03/08/2024 Orders Only [facility] [address] [place] [address] Kori Frederick PILE DRIVING NOZZLEMAN [address] [place], [place] [id number] Social History Tobacco Use Types Packs/Day Years [...] EDT Office Visit [facility] [address] [place] [phone] Sean Torres PA [address] [facility] [address] [place] [address] documented as of this encounter Procedures Procedure Name Priority Date/Time Associated Diagnosis Comments HEMOGLOBIN A1C Routine 02/04/2024 2:40 PM EST documented in this encounter Results * (ABNORMAL) Hemoglobin A1c (02/04/2024 2:40 PM EST) HEMOGLOBIN A1C 9.7 Blood Venous blood specimen / Unknown Kori Frederick PILE DRIVING NOZZLEMAN LAB BLOOD ORDERABLES Ed ited Result - Final documented in this encounter Visit Diagnoses Not on filedocumented in this encounter Care Teams Radar Systems Engineer Relationship Specialty Start Date End Date Jennifer Christine MD [address] [place] [address] PCP - General Family Medicine 04/10/23 Pastora Kohler NP [address] [place] [address] PCP - [facility] 02/16/23 03/18/80 Pastora Kohler NP [address] [place] [address] Nurse Practitioner Family Medicine 04/10/23 documented as of this encounter
--- OUTSIDE RECORDS SUMMARY | 2024-07-27 09:08 | XMS_ITS | Encounter Summary ---
Author Organization [facility] Address [address] [place] [address] Care Team Providers Care Rn Flight Name Role Phone Jennifer Christine MD Primary Care Provider [phone] Pastora Kohler INSTRUCTIONAL MEDIA SERVICES TECHNICIAN Unavailable [phone] Pastora Kohler INSTRUCTIONAL MEDIA SERVICES TECHNICIAN Unavailable Encounter Details Date Type Department Care Team (Late st Contact Info) Description 07/15/2023 Orders Only [facility] [address] [place] [address] Jennifer Christine MD [address] [place] [address] Social History Tobacco Use Types [...] Office Visit [facility] [address] [place] [phone] Sean Torres PA [address] [place] [address] documented as of this encounter Procedures Procedure Name Priority Date/Time Associated Diagnosis Comments DIABETIC RETINOPATHY SCREENING - OU - BOTH EYES Routine 05/05/2023 2:04 PM EDT documented in this encounter Results * Diabetic Retinopathy Screening - OU - Both Eyes (05/05/2023 2:04 PM EDT) Anatomical Region Laterality Modality Head Other us Jennifer Christine MD OPHTH PHOTOGRAPHY Final Resul t documented in this encounter Visit Diagnoses Not on filedocumented in this encounter Care Teams Rn Flight Relationship Specialty Start Date End Date Jennifer Christine MD [address] [facility] [place] [address] PCP - General Family Medicine 04/10/23 Pastora Kohler NP [address] [facility] [place] [address] PCP - [facility] 02/16/23 03/18/80 Pastora Kohler NP [address] [facility] [place], [place] [phone] Nurse Practitioner Family Medicine 04/10/23 documented as of this encounter
--- OUTSIDE RECORDS SUMMARY | 2024-07-27 09:08 | XMS_ITS | Encounter Summary ---
Author Organization [facility] Address [address] [place] [address] Care Team Providers Care Director Of Convention Services Name Role Phone Jennifer Christine MD Primary Care Provider [phone] Pastora Kohler CHILDHOOD DEVELOPMENT TEACHER Unavailable [phone] Pastora Kohler CHILDHOOD DEVELOPMENT TEACHER Unavailable [phone] Encounter Details Date Type Department Care Team (Latest Contact Info) Description 07/20/2024 Travel Social History Tobacco Use Types Packs/Day Years [...] Office Visit [facility] [address] [place] [address] Sean Torres, PA [address] [facility] [address] [place] [address] documented as of this encounter Visit Diagnoses Not on filedocumented in this encounter Care Teams Director Of Convention Services Relationship Specialty Start Date End Date Jennifer Christine MD [address] [facility] [place] [address] PCP - General Family Medicine 04/10/23 Pastora Kohler NP [address] [facility] [place], [place] [phone] PCP - [facility] 02/16/23 03/18/80 Pastora Kohler, NIDHI [address] [facility] [place], [place] [phone] Nurse Practitioner Family Medicine 04/10/23 documented as of this encounter
--- OUTSIDE RECORDS SUMMARY | 2024-07-27 09:08 | XMS_ITS | Encounter Summary ---
Author Organization [facility] Address [address] [place] [address] Care Team Providers Care Adult Specialist Name Role Phone Jennifer Christine MD Primary Care Provider [phone] Pastora Kohler TROLLEY WIRE INSTALLER Unavailable [phone] Pastora Kohler TROLLEY WIRE INSTALLER Unavailable [phone] Encounter Details Date Type Department Care Team (Late st Contact Info) Description 03/10/2024 External Result Encounter [facility] External Department Unsolicited Sean Torres PA [address] [address] Social History Tobacco Use Types Packs/Day Years [...] Office Visit [facility] [address] [place] [address] Sean Torres PA [address] [address] documented as of this encounter Procedures Procedure Name Priority Date/Time Associated Diagnosis Comments MR LUMBAR SPINE WO CONTRAST 03/10/2024 9:59 AM EST documented in this encounter Results * MR lumbar spine wo contrast (03/10/2024 9:59 AM EST) Anatomical Region Laterality Modality Spine, L-spine Magnetic Resonan ce 03/10/2024 9:59 AM EST Impressions 03/10/2024 10:11 AM EST Moderate degenerative change. Intact rotator cuff. Mild tendinosis. Findings suggesting tenosynovitis of long head of the biceps tendon. Acromioclavicular spurring. 2 views right shoulder pre-MRI assessment Acromioclavicular marginal spurring. Adequate glenohumeral joint. Adequate alignment. No acute bony findings. Cervical spine fixation hardware. IMPRESSION: Degenerative change. Impression dictated by: Carlos Manuel Armando M.D.03/10/2024 10:09 AM Dictation Location: [place] [address] Transcribed By: [facility] 03/10/24 1009 Dictated By: Carlos Manuel Armando DO 03/10/2459 Signed By: <Electronically signed by Carlos Manuel Armando DO in OV> 03/10/24 1009 Narrative 03/10/2024 10:11 AM EST [facility] [place] [address] [place] [id number] MRI Report Signed Patient: Lesli Clay MR#: [id number] : 1960 Acct:[id number] Age/Sex: 63 / F ADM Date: 03/10/24 Loc: MR Room: Type: [facility] Attending Dr: Sean Torres PA-C Copies to: Sean Torres PA-C Ordering Provider: Sean Torres PA-C Date of Service: 03/10/24 MR/MR shoulder RT wo con: 811 ([id number]) XR/XR pre/post mri xray: M24.811 MRI right [...] abnormalities identified. MR/MR shoulder RT wo con Procedure Note Radiology, Radiologist, - 03/10/2024 [facility] [place] [address] [place] [address] MRI Report Signed Patient: Lesli Clay MMR#: [id number] : 1Acct:[id number] Age/Sex: 63 / FADM Date: 03/10/24 Loc: Room:Type: [facility] Attending Dr: Sean Torres PA-C Copies to: Sean Torres PA-C Ordering Provider: Sean Torres PA-C Date of Service: 03/10/24 MR/MR shoulder RT wo con: M24.811 ([id number]) XR/XR pre/post mri xray: M24.811 MRI right Shoulder without contrast TECHNIQUE: Multiplanar T1 and T2-weighted imaging obtained withoutcontrast. HISTORY: Chronic right shoulder pain. No injury COMPARISON: None BONE MARROW EDEMA: Subchondral bone marrow edema defects of the anteriorand posterior portion of the humeral head. The likely degenerative. FRACTURE: None AC JOINT: Marginal spurring superiorly. SHOULDER ROOF LIGAMENTS: The coracoacromial and coracoclavicularligaments are intact. ROTATOR CUFF: The rotator cuff is intact. Mild tendinosis. ROTATOR CUFF INTERVAL: Unremarkable BURSAL FLUID: No subacromial subdeltoid bursal fluid identified. GLENOID: Heterogeneous signal changes anterior portion of the labrumlikely representing fraying/degenerative changes. No fluid signal intensity tear. BICEPS LABRAL COMPLEX: Intact LONG HEAD OF BICEPS TENDON: Large amount of fluid surrounds the tendon inthe bicipital groove. May represent tenosynovitis. GLENOHUMERAL LIGAMENTS: The superior glenohumeral ligament is intact.The middle glenohumeral ligament is intact. The anterior and posterior glenohumeral ligaments areintact. JOINT EFFUSION: Subcoracoid bursa loculated fluid. MUSCLES: Normal signal intensity of the muscles. NO SUBCUTANEOUS TISSUES: No subcutaneous abnormalities identified. MR/MR shoulder RT wo con IMPRESSION: Moderate degenerative change. Intact rotator cuff. Mild tendinosis.Findings suggesting tenosynovitis of long head of the biceps tendon. Acromioclavicularspurring. 2 views right shoulder pre-MRI assessment Acromioclavicular marginal spurring. Adequate glenohumeral joint.Adequate alignment. No acute bony findings. Cervical spine fixation hardware. IMPRESSION: Degenerative change. Impression dictated by: Carlos Manuel Armando M.D.03/10/2024 10:09 AM Dictation Location: [place] [address] Transcribed By: [facility] 03/10/24 1009 Dictated By: Carlos Manuel Armando DO 03/10/24 0959 Signed By: <Electronically signed by Carlos Manuel Armando DO in OV> 03/10/24 1009 us Sean HILL IMJoellen MRI PROCEDURES Final Resu lt documented in this encounter Visit Diagnoses Not on filedocumented in this encounter Care Teams Adult Specialist Relationship Specialty Start Date End Date Jennifer Christine MD [address] [place] [address] PCP - General Family Medicine 04/10/23 Pastora Kohler NP [address] [place] [address] PCP - [facility] 02/16/23 03/18/80 Pastora Kohler NP [address] [place] [address] Nurse Practitioner Family Medicine 04/10/23 documented as of this encounter
--- OUTSIDE RECORDS SUMMARY | 2024-07-27 09:08 | XMS_ITS | Encounter Summary ---
Author Organization [facility] Address [address] [place] [address] Care Team Providers Care Track Repair Supervisor Name Role Phone Jennifer Christine MD Primary Care Provider Pastora Kohler VETERINARY RECEPTIONIST Unavailable [phone] Pastora Kohler VETERINARY RECEPTIONIST Unavailable [phone] Encounter Details Date Type Department Care Team (Late st Contact Info) Description 06/03/2024 Abstract [facility] [address] [place] [address] Pastora Kohler VETERINARY RECEPTIONIST [address] [place], [place] [id number] Social History Tobacco Use Types Packs/Day Years Used Date Smoking Tobacco: Never Smokeless Tobacco: Never Alcohol Use Standard Drinks/Week Comments Not Currently 0 (1 standard drink = 0.6 oz pur e alcohol) caffeine: 2 cups per day PHQ-2 Answer Date Recorded [...] Office Visit [facility] [address] [place] [id number] Sean Torres PA [address] [place] [address] documented as of this encounter Visit Diagnoses Not on filedocumented in this encounter Care Teams Track Repair Supervisor Relationship Specialty Start Date End Date Jennifer Christine MD [address] [place], [place] [id number] PCP - General Family Medicine 04/10/23 Pastora Kohler NP [address] [place], [place] [id number] PCP - [facility] 02/16/23 03/18/80 Pastora Kohler NP [address] [place], [place] [id number] Nurse Practitioner Family Medicine 04/10/23 documented as of this encounter
--- OUTSIDE RECORDS SUMMARY | 2024-07-27 09:09 | XMS_ITS | Encounter Summary ---
Author Organization [facility] Address [facility] [place] [address] Care Team Providers Care Public Information Relations Manager Name Role Phone Dago Keith Primary Care Provider [phone] Source Comments In the event this information is protected by the Federal Confidentiality of Alcohol and Drug AbusePatient Records regulations: The Federal rules restrict any use of the information to criminally investigate or prosecute any alcohol or drug abuse patient.[facility] Encounter Details Date Type Department Care Team (Late st Contact Info) Description 05/29/2023 Lab Requisition [facility] Laboratory [address] [place] [address] Lukasz Neal MD [address] [place] [address] Person encountering health services to consult on behalf of another person Social History Tobacco Use Types Packs/Day Years Used Date Smoking Tobacco: Never Assessed Comments No Sex and Gender Information Value Date Recorded Sex Assigned at Not on file Legal Sex Female 8:17 AM EST Gender Identity Not on file Sexual Orientation Not on file documented as of this encounter Plan of Treatment Not on file documented as of this encounter Procedures Procedure Name Priority Date/Time Associated Diagnosis Comments SURGICAL PATHOLOGY REFERENCE LAB CONSULT Routine 05/29/2023 12:39 PM EDT Person encountering health services to consult on behalf of another person documented in this encounter Results * SURGICAL PATHOLOGY REFERENCE LAB CONSULT (05/29/2023 12:39 PM EDT) Case Report Surgical Pathology Report Case: [id number] Authorizing Provider: Lukasz Neal MD Collected: 05/29/2023 12:39 PM Ordering Location: [facility] Received: 05/29/2023 12:38 PM [facility] Laboratory Pathologist: Jeri Dickerson MD Specimen: Slide(s), 2 SLIDES ([id number]) 05/29/2023 5:06 PM EDT [facility] FINAL DIAGNOSIS Review of outside slides, dated 05/26/2023: Endometrium, curettage: -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 05/29/2023 5:06 PM EDT [facility] at 1706 EDT Diagnosis Comment Thank you for sending this interesting endometrial biopsy from a 63-year-old [...] free to give me a call at [phone]. 05/29/2023 5:06 PM EDT [facility] Clinical History CONSULT REQUESTED 05/29/2023 5:06 PM EDT [facility] Performing Lab Diagnostic interpretation performed at [facility], [address] [place], [place] [id number] [facility]# [id number] Denier Control Operator: Josh Orellana M.D. 05/29/2023 5:06 PM EDT [facility] Blocks or Slides MICROSCOPE SLIDE / Unknown 05/29/2023 12:39 PM EDT 05/29/2023 12:38 PM EDT us Lukasz Neal MD SURGICAL PATHOLOGY Final Re sult [facility] [address] [facility] [address] [place] [address], documented in this encounter Visit Diagnoses Diagnosis Person encountering health services to consult on behalf of another person Other person consulting on behalf of another person documented in this encounter Care Teams Public Information Relations Manager Relationship Specialty Start Date End Date Dago Keith [address] [place] [address] [place] [address] PCP - General 02/15/08 documented as of this encounter
--- OUTSIDE RECORDS SUMMARY | 2024-07-27 09:09 | XMS_ITS | Encounter Summary ---
Author Organization [facility] Address [address] [place] [address] Care Team Providers Care Engineer Chief Name Role Phone Judith Newman DO Unavailable [phone] Judith Newman DO Primary Care Provider [phone] Jennifer Christine MD Primary Care Provider Pastora Kohler WASTE RECYCLER Unavailable [phone] Pastora Kohler WASTE RECYCLER Unavailable Encounter Details Date Type Department Care Team (Late Contact Info) Description 10/24/2022 Abstract [facility] [address] [place] [address] Judith Newman DO [address] [address] Social History Tobacco Use Types Packs/Day Years Used Date Smoking Tobacco: Never Assessed Comments Unknown Sex and Gender Information Value Date Recorded Sex Assigned at Not on file Legal Sex Female 6:56 PM EDT Gender Identity Not on file Sexual Orientation Not on file documented as of this encounter Plan of Treatment Upcoming Encounters Date Type Department Care Team (Late Contact Info) Description 08/24/2024 8:30 AM EDT Office Visit [facility] [address] [place] [address] Sean Torres PA 112 [facility] [address] [place] [address] documented as of this encounter Visit Diagnoses Not on filedocumented in this encounter Care Teams Engineer Chief Relationship Specialty Start Date End Date Judith Newman DO [address] [facility] [address] [facility] [place] [address] PCP - [facility] 09/16/21 12/16/22 Judith Newman DO [address]15 [facility] 200 [facility] [place] [address] PCP - General Family Medicine 06/24/22 04/09/23 Jennifer Christine MD [address] [place] [address] PCP - General Family Medicine 04/10/23 aPstora Kohler NP [address] [place], [place] [address] PCP - [facility] 02/16/23 03/18/80 Pastora Kohler NP [address] [place] [address] Nurse Practitioner Family Medicine 04/10/23 documented as of this encounter
--- OUTSIDE RECORDS SUMMARY | 2024-07-27 09:09 | XMS_ITS | Encounter Summary ---
Author Organization [facility] Address [address] [place] [address] Care Team Providers Care Sample Driller Name Role Phone Trent, Judith Cuenca DO Unavailable [phone] Judith Newman DO Primary Care Provider [phone] Jennifer Christine MD Primary Care Provider [phone] Pastora Kohler GALLERY HOST Unavailable [phone] Pastora Kohler GALLERY HOST Unavailable [phone] Encounter Details Date Type Department Care Team (Late st Contact Info) Description 11/28/2022 Abstract [facility] 112 [facility] 150 [place] [address] Sean Torres PA 112 [facility] 150 [place] [address] Social History Tobacco Use Types Packs/Day Years Used Date Smoking Tobacco: Never Smokeless Tobacco: Never Alcohol Use Standard Drinks/Week Comments Not Currently 0 (1 standard drink = 0.6 oz pur e alcohol) caffeine: 3-4 cups per day PHQ-2 Answer Date Recorded Patient Health Questionnaire-2 Score 0 11/03/2022 Comments Unknown Sex and Gender Information Value Date Recorded Sex Assigned at Not on file Legal Sex Female 6:56 PM EDT Gender Identity Not on file Sexual Orientation Not on file documented as of this encounter Plan of Treatment Upcoming Encounters Date Type Department Care Team (Late st Contact Info) Description 08/24/2024 8:30 AM EDT Office Visit [facility] [address] [place] [address] Sean Torres, PA 112 [facility] [address] [place] [address] documented as of this encounter Visit Diagnoses Not on filedocumented in this encounter Care Teams Sample Driller Relationship Specialty Start Date End Date Judith Newman DO 1715 [facility] [address] [place] [phone] PCP - [facility] 09/16/21 12/16/22 Judith Newman DO 1715 [facility] 200 [place] [address] PCP - General Family Medicine 06/24/22 04/09/23 Jennifer Christine MD 1479 [facility] [address] PCP - General Family Medicine 04/10/23 Pastora Kohler NP [address] [facility] [place] [address] PCP - [facility] 02/16/23 03/18/80 Pastora Kohler NP 14[address] [facility] [place] [address] Nurse Practitioner Family Medicine 04/10/23 documented as of this encounter
--- OUTSIDE RECORDS SUMMARY | 2024-07-27 09:09 | XMS_ITS | Encounter Summary ---
Author Organization [facility] Address [address] [place] [address] Care Team Providers Care Tie Puller Name Role Phone Jennifer Christine MD Primary Care Provider [phone] Pastora Kohler CARVER AND CHECKERER SPECIALS Unavailable [phone] Pastora Kohler CARVER AND CHECKERER SPECIALS Unavailable [phone] Encounter Details Date Type Department Care Team (Late st Contact Info) Description 04/23/2023 Clinisync Result Encounter [facility] External Department Unsolicited Stefany Webb, DO [address] [place] [address] [place] [address] Social History Tobacco Use Types Packs/Day Years [...] Office Visit [facility] [address] [place] [address] Sean Torres PA 112 [facility] 150 [place] [address] documented as of this encounter Procedures Procedure Name Priority Date/Time Associated Diagnosis Comments US PELVIS W/ TRANSVAGINAL 04/23/2023 12:08 PM EST documented in this encounter Results * US PELVIS W/ TRANSVAGINAL (04/23/2023 12:08 PM EST) Anatomical Region Laterality Modality Other 04/23/2023 12:0 8 PM EST Narrative 04/23/2023 12:10 PM EST [address] [address] Ultrasound Report Signed Patient: JEANETTE FRAGA MR#: [id number] : 1960 Acct:[id number] Age/Sex: 63 / F ADM Date: 04/23/23 Loc: [facility] Attending Dr: Stefany Webb D.O. Ordering Physician: Stefany Webb D.O. Date of Service: 04/23/23 Procedure(s): US pelvis w/ transvaginal Accession Number(s): [id number] cc: [facility] ; Stefany Webb D.O. [address] [address] Patient Name: JEANETTE FRAGA MRN: [id number] date: 1960 Sex: F Assigned Patient Location: [facility] Current Patient Location: [facility] Accession/Order Number: [id number] Exam Date: 04/23/2023 10:35 Report Date: 04/23/2023 12:08 At the request of: STEFANY WEBB Procedure: US pelvis w/ transvaginal EXAMINATION: US pelvis w/ transvaginal HISTORY: POST MENOPAUSAL BLEEDING COMPARISON: No relevant comparison available. TECHNIQUE: Transabdominal and/or transvaginal sonographic examination was performed as indicated by examination type. FINDINGS: UTERUS: Normal size and appearance. Uterus size: 7.6 x 3.1 x 4.6 cm ENDOMETRIUM: Normal homogeneous appearance. Endometrial thickness: 8 mm RIGHT OVARY: Not seen. LEFT OVARY: Not seen. CUL-DE-SAC: Unremarkable. No significant free fluid. BLADDER: Unremarkable. OTHER: None. US/US pelvis w/ transvaginal IMPRESSION: 1. Limited examination due to patient body habitus. 2. No appreciable abnormality of the uterus and endometrium. 3. Neither ovary could be identified. No suspicious adnexal findings. Electronically authenticated by: JORDEN LOYOLA Date: 04/23/2023 12:08 Dictated By: Jorden Loyola M.D. Signed By: 04/23/23 1210 DD/ 1208 TD/TT: Cellophane Worker: Procedure Note Radiology, Radiologist, MD - 04/23/2023 [place] [address] Ultrasound Report Signed Patient: JEANETTE FRAGA MMR#: [id number] : 1960cct:[id number] Age/Sex: 63 / FADM Date: 04/23/23 Loc: [facility] Attending Dr: Stefany Webb D.O. Ordering Physician: Stefany Webb D.O. Date of Service: 04/23/23 Procedure(s): US pelvis w/ transvaginal Accession Number(s): [id number] cc: [facility] ; Stefany Webb D.O. The [place] [id number] Patient Name: JEANETTE FRAGA MRN: [id number] date: 1960 Sex: F Assigned Patient Location: [facility] Current Patient Location: [facility] Accession/Order Number: [id number] Exam Date: 04/23/2023 10:35 Report Date: 04/23/2023 12:08 At the request of: STEFANY WEBB Procedure: US pelvis w/ transvaginal EXAMINATION: US pelvis w/ transvaginal HISTORY: POST MENOPAUSAL BLEEDING COMPARISON: No relevant comparison available. TECHNIQUE: Transabdominal and/or transvaginal sonographic examination was performed as indicated by examination type. FINDINGS: UTERUS: Normal size and appearance. Uterus size: 7.6 x 3.1 x 4.6 cm ENDOMETRIUM: Normal homogeneous appearance. Endometrial thickness: 8 mm RIGHT OVARY: Not seen. LEFT OVARY: Not seen. CUL-DE-SAC: Unremarkable. No significant free fluid. BLADDER: Unremarkable. OTHER: None. US/US pelvis w/ transvaginal IMPRESSION: 1. Limited examination due to patient body habitus. 2. No appreciable abnormality of the uterus and endometrium. 3. Neither ovary could be identified. No suspicious adnexal findings. Electronically authenticated by: JORDEN LOYOLA Date: 04/23/2023 12:08 Dictated By: Jorden Loyola M.D. Signed By:04/23/23 1210 DD/ 1208 TD/TT: Cellophane Worker: us Stefany Jon DO [facility] Final Result documented in this encounter Visit Diagnoses Not on filedocumented in this encounter Care Teams Tie Puller Relationship Specialty Start Date End Date Jennifer Christine MD [address] [place] [address] PCP - General Family Medicine 04/10/23 Pastora Kohler NP [address] [place] [address] PCP - [facility] 02/16/23 03/18/80 Pastora Kohler NP [address] [place] [address] Nurse Practitioner Family Medicine 04/10/23 documented as of this encounter
--- OUTSIDE RECORDS SUMMARY | 2024-07-27 09:09 | XMS_ITS | Clinical Summary ---
Author Organization [facility] [place] Address [address] [place] [address] Care Team Providers Care Recruitment Internship Name Role Phone Pastora Kohler APRN - ROOF MECHANIC Primary Care P [facility] Allergies No known active allergies Medications ARIPiprazole (ABILIFY) 15 MG tablet Take 1 tablet by mouth every 24 hours 3 Active atorvastatin (LIPITOR) 40 MG tablet Take 1 tablet by mouth at bedtime 0 Active buPROPion (WELLBUTRIN XL) 300 MG extended release tablet Take 1 tablet by mouth Every Day 3 Active blood glucose test strips (ACCU-CHEK GUIDE) strip 1 each 2 times daily 3 Active hydrOXYzine pamoate (VISTARIL) 25 MG capsule Take 1 capsule by mouth 4 times daily as needed 4 Active losartan-hydroC HLOROthiazide (HYZAAR) 50-12.5 MG per tablet Take 1 tablet by mouth daily 4 Active metoprolol tartrate (LOPRESSOR) 25 MG tablet Take 1 tablet by mouth 2 times daily (with meals) 3 Active nortriptyline (PAMELOR) 50 MG capsule Take 2 capsules by mouth nightly 4 Active pregabalin (LYRICA) 75 MG capsule Take 1 capsule by mouth 2 times daily. Active semaglutide, 2 MG/DOSE, (OZEMPIC, 2 MG/DOSE,) 8 MG/3ML SOPN sc injection Inject 2 mg into the skin once a week Active Insulin Degludec 100 UNIT/ML SOLN Inject 56 Units into the skin daily Active Alcohol Swabs PADS Active FIASP FLEXTOUCH 100 UNIT/ML SOPN Inject into the skin 4 times daily (after meals and at bedtime) Inject per sliding scale 4 Active lisinopril-hydr oCHLOROthiazide (PRINZIDE;ZESTO RETIC) 20-12.5 MG per tablet Take 1 tablet by mouth daily Active topiramate (TOPAMAX) 100 MG tablet 1 tablet Active omeprazole 20 MG EC tablet Take 1 tablet by mouth daily Active tiZANidine (ZANAFLEX) 2 MG tablet Take 1 tablet by mouth at bedtime Active NONFORMULARY Something she takes at night. Active VITAMIN D PO Take 1 tablet by mouth daily Active simethicone (MYLICON) 80 MG chewable tablet Take 1 tablet by mouth 4 times daily as needed for Flatulence 28 tablet 4 Active Additional Information Patient not taking.Reported on 04/11/2024 nystatin (MYCOSTATIN) [id number] UNIT/GM powderIndicatio ns:Tinea corporis Apply 2 times daily as needed to affected skin areas 60 g 1 5 Active Active Problems Problem Noted Date Diagnosed Date [...] Assessment & Plan: She is managed by [facility]. 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 Resolved Problems Problem Noted Date Diagnosed Date Resolved Date Post-operative state 07/28/2023 024 Encounters Date Type Department Care Team Description 05/03/2024 Refill [facility] Gynecologic Oncology Services [address] [place] [address] Jenna Andrade PA-C Medication Refill from Last 3 Months Immunizations Immunization Administration Dates Next Due Influenza Virus Vaccine 11/21/2022,02/26,12/09/2016,10/17/2016,01/04/20 15,01/03/2014 Family History Medical History Relation Name Comments Cerebral palsy Brother 1 Kenton No Known Problems Brother 2 Heart Disease Mother Heart Disease Sister 1 Gamaliel No Known Problems Sister 2 No Known Problems Sister 3 Relation Name Status Comments Brother 1 Kenton Alive Brother 2 Alive Father Mother Sister 1 Gamaliel Sister 2 Alive Sister 3 Alive Social History Tobacco Use Types Packs/Day Years Used Date Smoking Tobacco: Former Cigarettes Q uit: 06/20/2010 Passive Smoke Exposure: Never Smokeless Tobacco: Never Alcohol Use Standard Drinks/Week Comments Not Asked 0 (1 standard drink = 0.6 oz pur e alcohol) No Interpersonal Safety Domain Source: IP Abuse Scr eening Answer Date Recorded Physical abuse Denies 07/16/2023 Verbal abuse Denies 07/16/2023 Emotional abuse Denies 07/16/2023 Financial abuse Denies 07/16/2023 Sexual abuse Denies 07/16/2023 Comments No Sex and Gender Information Value Date Recorded Sex Assigned at Not on file Legal Sex Female 2:40 PM EST Gender Identity Not on file Sexual Orientation Not on file Last Filed Vital Signs Vital Sign Reading Time Taken Comments Blood Pressure 190/98 04/11/2024 10:58 AM EST ma nual BP Pulse 80 04/11/2024 9:23 AM EST Temperature 36.5 C (97.7 F) 07/29/2023 8:23 AM EDT Respiratory Rate 16 07/29/2023 8:23 AM EDT Oxygen Saturation 90% 04/11/2024 9:23 AM EST Inhaled Oxygen Concentration - - Weight 134.7 kg (297 lb) 04/11/2024 9:23 AM EST Height 160 cm (5' 3 ) 04/11/2024 9:23 AM EST Body Mass Index 52.61 04/11/2024 9:23 AM EST Plan of Treatment Upcoming Encounters Date Type Department Care Team (Late st Contact Info) Description 09/08/2024 8:30 AM EDT Office Visit [facility] Gynecologic Oncology Services [address] [place] [id number] Jenna Andrade PA-C [address] [facility] [address] [place] [address] Follow up - last seen 04/11/24 Health Maintenance Due Date Last Done Comments Diabetic foot exam 1970 Depression Monitoring 1972 HIV screen 1975 Diabetic Alb to Cr ratio (uACR) test 1978 Diabetic retinal exam 1978 Hepatitis C screen 1978 DTaP/Tdap/Td vaccine (1 - Tdap) 1979 Pneumococcal 50+ years Vaccine (1 of 2 - PCV) 1979 Colonoscopy 2005 Colorectal Cancer Screen 2005 FIT/FOBT: Average risk 2005 Fecal-DNA (Cologuard): Average risk 2005 Sigmoidoscopy/CT colonography 2005 Shingles vaccine (1 of 2) 2010 Respiratory Syncytial Virus (RSV) or age 60 yrs+ (1 - Risk 60-74 years 1-dose series) 2020 Annual Wellness Visit (Medicare) 11/15/2023 A1C test (Diabetic or Prediabetic) 07/15/2024 07/16/2023, 06/29/2023 GFR test (Diabetes, CKD 3-4, OR last GFR 15-59) 07/15/2024 07/16/2023 Lipids 07/15/2024 07/16/2023, 06/29/2023 Breast cancer screen 09/14/2025 09/15/2023, 02/15/20 19 Cervical cancer screen Discontinued HPV (without or with Pap) Discontinued 06/15/2023 Pap smear Discontinued 06/15/2023 Flu vaccine Completed 10/23/2023, 1007/2022, 02/26/2022, Additional history exists COVID-19 Vaccine Completed 11/15/2023, 07/2022, 06/12/2020, Additional history exists Hepatitis A vaccine Aged Out No longe r eligible based on patient's age to complete this topic Hepatitis B vaccine Aged Out No longe r eligible based on patient's age to complete this topic Hib vaccine Aged Out No longer eligi ble based on patient's age to complete this topic Meningococcal (ACWY) vaccine Aged Out No longer eligible based on patient's age to complete this topic Meningococcal B vaccine Aged Out No l onger eligible based on patient's age to complete this topic Polio vaccine Aged Out No longer elig ible based on patient's age to complete this topic Procedures Procedure Name Priority Date/Time Associated Diagnosis Comments COMPREHENSIVE METABOLIC PANEL Routine 07/16/2023 10:15 AM EDT Pre-op testing LIPID PANEL Routine 07/16/2023 10:15 AM EDT Pre-op testing HEMOGLOBIN A1C Routine 07/16/2023 10:15 AM EDT Pre-op testing HUMAN PAPILLOMAVIRUS (HPV) DNA PROBE THIN PREP HIGH RISK Routine 06/15/2023 12:00 AM EDT METAL HARDENER CYTOLOGY Routine 06/15/2023 12:00 AM EDT from Last 3 Months or Most Recently Relevant to Health Maintenance Results * (ABNORMAL) Hemoglobin A1c (07/16/2023 10:15 AM EDT) Hemoglobin A1C 8.8(H) 4.0 - 6.0 % 07/16/2023 10:15 AM EDT [facility] Estimated Avg Glucose 206 mg/dL 07/16/2023 10:15 AM EDT [facility] Comment: The ADA and AACC recommend providing the estimated average glucose result to permit better patient understanding of their HBA1c result. Blood BLOOD SPECIMEN / Unknown 07/16/2023 10:15 AM EDT 07/16/2023 11:03 AM EDT us Rossi Alexa Man Cobau BUSINESS PLANNING MANAGER - ROOF MECHANIC CHEMISTRY ORDERA BLES Final Result [facility] [address] [place] [address], [facility] [phone] * (ABNORMAL) Lipid Panel (07/16/2023 10:15 AM EDT) Cholesterol, Total 117 0 - 199 mg/dL 07/16/2023 10:15 AM EDT [facility] Comment: Cholesterol Guidelines: <200 Desirable 200-240 Borderline >240 Undesirable HDL 36(L) >40 mg/dL 07/16/2023 10:15 AM EDT [facility] Comment: HDL Guidelines: <40 Undesirable 40-59 Borderline >59 Desirable LDL Cholesterol 60 0 - 100 mg/dL 07/16/2023 10:15 AM EDT [facility] Comment: LDL Guidelines: <100 Desirable 100-129 Near to/above Desirable 130-159 Borderline >159 Undesirable Direct (measured) LDL and calculated LDL are not interchangeable tests. Chol/HDL Ratio 3.0 07/16/2023 10:15 AM EDT [facility] Triglycerides 107 <150 mg/dL 07/16/2023 10:15 AM EDT [facility] Comment: Triglyceride Guidelines: <150 Desirable 150-199 Borderline 200-499 High >499 Very high Based on AHA Guidelines for fasting triglyceride, November 2011. VLDL 21 mg/dL 07/16/2023 10:15 AM EDT [facility] Blood BLOOD SPECIMEN / Unknown 07/16/2023 10:15 AM EDT 07/16/2023 11:03 AM EDT Rossi Armendariz BUSINESS PLANNING MANAGER - ROOF MECHANIC CHEMISTRY ORDERA BLES Final Result [facility] [address] [place] [address], [facility] [phone] * (ABNORMAL) Comprehensive Metabolic Panel (07/16/2023 10:15 AM EDT) Pathologist [facility] Sodium 139 136 - 145 mmol/L 07/16/2023 10:15 AM EDT [facility] Potassium 4.7 3.7 - 5.3 mmol/L 07/16/2023 10:15 AM EDT [facility] Chloride 103 98 - 107 mmol/L 07/16/2023 10:15 AM EDT [facility] CO2 23 20 - 31 mmol/L 07/16/2023 10:15 AM EDT [facility] Anion Gap 13 9 - 16 mmol/L 07/16/2023 10:15 AM EDT [facility] Glucose 161(H) 74 - 99 mg/dL 07/16/2023 10:15 AM EDT [facility] BUN 21 8 - 23 mg/dL 07/16/2023 10:15 AM EDT [facility] Creatinine 1.0(H) 0.50 - 0.90 mg/dL 07/16/2023 10:15 AM EDT [facility] Est, Glom Filt Rate 64 >60 mL/min/1. 73m2 07/16/2023 10:15 AM T [facility] Comment: These results are not intended for [...] following therapy that affects renal tubular secretion. Calcium 9.9 8.6 - 10.4 mg/dL 07/16/2023 10:15 AM T [facility] Total Protein 7.9 6.6 - 8.7 g/dL 07/16/2023 10:15 AM T [facility] Albumin 4.4 3.5 - 5.2 g/dL 07/16/2023 10:15 AM T [facility] Albumin/Globulin Ratio 1.0 1.0 - 2.5 07/16/2023 10:15 AM EDT [facility] Total Bilirubin 0.3 0.00 - 1.20 mg/dL 07/16/2023 10:15 AM EDT [facility] Alkaline Phosphatase 103 35 - 104 U/L 07/16/2023 10:15 AM EDT [facility] ALT 15 10 - 35 U/L 07/16/2023 10:15 AM EDT [facility] AST 18 10 - 35 U/L 07/16/2023 10:15 AM EDT [facility] Blood BLOOD SPECIMEN / Unknown 07/16/2023 10:15 AM EDT 07/16/2023 11:03 AM EDT us Rossi Armendariz BUSINESS PLANNING MANAGER - ROOF MECHANIC CHEMISTRY ORDERA BLES Final Result Performing Organization Address City/[facility]/ZIP Co de Phone Number [address] [phone] * Human papillomavirus (HPV) DNA probe thin prep high risk (06/15/2023 12:00 AM EDT) Specimen Description CERVICAL MATERIAL 06/15/2023 12:00 AM EDT [facility] HPV Sample .THIN PREP 06/15/2023 12:00 AM EDT [facility] HPV, Genotype 16 Not Detected Not Detected 06/15/2023 12:00 AM EDT [facility] HPV, Genotype 18 Not Detected Not Detected 06/15/2023 12:00 AM EDT [facility] HPV, High Risk Other Not Detected Not Detected 06/15/2023 12:00 AM EDT [facility] HPV, Interpretation 06/15/2023 12:00 AM EDT [facility] Comment: This test amplifies and detects DNA [...] sexual abuse or for other forensic purposes. CERVICAL MATERIAL 06/15/2023 us Marshall Emmanuel MD HEMATOLOGY ORDERABLES Final R esult Performing Organization Address [facility]/ZIP Co de Phone Number [address] [phone] * METAL HARDENER Cytology (06/15/2023 12:00 AM EDT) Cytology Report Path Number: [id number] DIAGNOSIS Imaged ThinPrep Pap - Cervical (1 monolayer slide): Specimen Adequacy: Satisfactory for evaluation. - Endocervical/trans formation zone component present. Descriptive Diagnosis: Negative for [...] or for other forensic purposes. Performed at [facility], [address] [place] [address] . Source of Specimen: A: Imaged ThinPrep Pap - Cervical (1 monolayer slide) HPV Reflex?........... ...........HPV Regardless Clinical History Postmenopausal Z12.4 Encounter for screening for malignant neoplasm of cervix Processing Lab: [address] [phone] Interpretation performed at [address] [phone] This Pap Test has been evaluated with the assistance of the MobilingaPrep Pap Test Imaging System. The Pap smear is a screening test primarily for squamous epithelial lesions, which is subject to both false negative and false positive results. Your patient should be reminded to consult you immediately if she experiences any suspicious signs or symptoms, regardless of her Pap smear result. GYNECOLOGIC CYTOLOGY REPORT Patient Name: OBED LESLI M. [facility] Rec: [id number] [facility] ANATOMIC PATHOLOGY [address] [place] [phone] Bday CERVICAL MATERIAL 06/15/2023 024 7:12 AM EDT Marshall Emmanuel MD PATHOLOGY/CYTOLOGY ORDERABLES Final Result Performing Organization Address City/State/[facility] Co de Phone Number [facility] [address] [place] [phone] [place] [address] Bday from Last 3 Months or Most Recently Relevant to Health Maintenance Insurance MEDICARE MEDICARE [facility] MEDICARE Advance Directives * Full Code (Latest Code Status on File) Date Activated Date Inactivated Comments 07/28/2023 6:08 AM 07/29/2023 1:27 PM * Full Code Date Activated Date Inactivated Comments 06/30/2023 10:53 AM 06/30/2023 5:12 PM Care Teams Recruitment Internship Relationship Specialty Start Date End Date Pastora Kohler APRN - PAM [address] [place] [address] PCP - General Nurse Practitioner, Family 06/15/23
--- OUTSIDE RECORDS SUMMARY | 2024-07-27 09:09 | XMS_ITS | Clinical Summary ---
Author Organization [facility] Address [address] [place] [address] Care Team Providers Care Milk Route Deliverer Name Role Phone Jennifer Christine MD Primary Care Provider [phone] Pastora Kohler VALUATION CONSULTANT Unavailable [phone] Pastora Kohler VALUATION CONSULTANT Unavailable [phone] Allergies No known active allergies Medications ARIPiprazole (Abilify) 15 MG tablet 1 (one) time each day at the same time Acti ve buPROPion XL (Wellbutrin XL) 300 MG 24 hr tablet Active ergocalciferol (Vitamin D2) 1.25 MG (39521 UT) capsule 023 Active Accu-Chek Guide test strip 023 Active Accu-Chek FastClix Lancets misc 023 Active metFORMIN (Glucophage) 1000 MG tablet 1 (one) time each day at the same time Acti ve nortriptyline (Pamelor) 50 MG capsule Active pregabalin (Lyrica) 75 MG capsule Take 75 mg by mouth in the morning and 75 mg before bedtime. Active tiZANidine (Zanaflex) 4 MG tablet 023 Active oxyCODONE-acetami nophen (Percocet) 5-325 MG tablet Take 1 tablet by mouth as needed in the morning and 1 tablet as needed at noon and 1 tablet as needed in the evening. 023 Active Semaglutide, 2 MG/DOSE, (Ozempic, 2 MG/DOSE,) 8 MG/3ML solution pen-injector Inject 2 mg under the skin 1 (one) time per week Active insulin degludec (Tresiba) 100 UNIT/ML injectionIndicati ons:Type 2 diabetes mellitus with hyperglycemia, with long-term current use of insulin (CMS/HCC) Inject 48 Units under the skin at bedtime 024 Active Additional Information Patient taking differently: 44 UnitsSubcutaneous Nightly, Reported on 06/14/2024 metoprolol tartrate (Lopressor) 25 MG tabletIndications :Primary hypertension (CMS/HCC) Take 1 tablet (25 mg) by mouth in the morning and 1 tablet (25 mg) in the evening. Take with meals. 180 tablet 3 024 Active atorvastatin (Lipitor) 40 MG tabletIndications :Mixed hyperlipidemia (CMS/HCC) TAKE 1 TABLET BY MOUTH EVERY DAY 90 tablet 1 025 Active hydrOXYzine HCl (Atarax) 25 MG tablet Take 25 mg by mouth every 6 (six) hours if needed for anxiety PRN Active Klayesta 790110 UNIT/GM powder APPLY EXTERNALLY TO AFFECTED SKIN AREAS TWICE DAILY NEEDED 025 Active ARIPiprazole (Abilify) 10 MG tablet Take 10 mg by mouth Daily Active losartan-hydroCHL OROthiazide (Hyzaar) 50-12.5 MG tabletIndications :Primary hypertension (CMS/HCC) Take 1 tablet by mouth Daily 90 tablet 1 025 Active Active Problems Problem Noted Date Diagnosed Date Chronic kidney disease, stage 2 (mild) penitentiary (current) use of insulin 04/12/2024 Stage 3a chronic kidney disease (HCC) 04/12/2024 Type 2 diabetes mellitus without complications 0 04/12/2024 Biceps tendinitis, right 03/23/2024 Impingement of right shoulder 03/23/2024 Aortic valve stenosis 07/28/2023 History of 3 sections 07/28/2023 Poorly controlled diabetes mellitus 07/28/2023 Poorly-controlled hypertension 07/28/2023 Sleep apnea 07/28/2023 Malignant neoplasm of endometrium 06/03/2023 BMI 50.0-59.9, adult 12/22/2022 Arthritis of left acromioclavicular joint 2022 Artificial knee joint present 11/03/2022 Cervical spondylosis 11/03/2022 Degenerative lumbar spinal stenosis 11/03/2022 Difficulty walking 11/03/2022 Displacement of lumbar inter vertebral disc without myelopathy 11/03/2022 Primary hypertension 11/03/2022 Assessment & Plan (05/15/2023 10:03 PM EDT): Controlled on hyzaar and metoprolol 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 Muscle pain 11/03/2022 Obesity 11/03/2022 Osteoarthritis of knee 11/03/2022 Recurrent major depressive d isorder, in partial remission (HCC) 11/03/2022 Assessment & Plan (05/15/2023 10:06 PM EDT): On abilify, wellbutrin, hydroxyzine Shoulder joint pain 11/03/2022 Type 2 diabetes mellitus wit h hyperglycemia, with long-term current use of insulin 11/03/2022 Assessment & Plan (05/16/2023 4:57 PM EDT): She is managed by [facility]. A1c is high and advised she needs [...] recurrent major depressive disorder, without psychotic features (HCC) 11/13/2016 Hip pain 01/08/2016 Cervical radiculopathy 01/18/2014 Carpal tunnel syndrome 10/03/2011 Encounters Date Type Department Care Team Description 07/20/2024 8:30 AM EDT Office Visit [facility] [address] [place] [address] Sean Torres, PA S/P arthroscopy of right shoulder (Primary Dx) 07/20/2024 Bamboo flowsheet [facility] [address] [place] [address] Sean Torres, PA 07/20/2024 Travel 07/01/2024 10:00 AM EDT Office Visit [facility] [address] [place] [address] Sean Torres, PA S/P arthroscopy of right shoulder (Primary Dx) 07/01/2024 Telephone [facility] [address] [place] [address] Sean Torres, PA refill 07/01/2024 Bamboo flowsheet [facility] [address] [place] [address] Sean Torres, PA 07/01/2024 Travel 06/21/2024 11:15 AM EDT Office Visit [facility] [address] [place] [phone] Sean Torres, PA S/P arthroscopy of right shoulder (Primary Dx) 06/21/2024 Bamboo flowsheet [facility] [address] [place] [address] Sean Torres, PA 06/21/2024 Travel 06/16/2024 Telephone [facility] [address] [place] [address] Ilan Mar NP 06/16/2024 Refill [facility] [address] [facility] [place] [address] Pastora Kohler NP Primary hypertension (CMS/HCC) 06/14/2024 10:00 AM EDT Office Visit [facility] [address] [facility] [place] [address] Jennifer Christine MD Nonrheumatic aortic valve stenosis (Primary Dx); Arthritis of left acromioclavicular joint; Preoperative clearance; Primary hypertension (CMS/HCC); Malignant neoplasm of endometrium (CMS/HCC); Stage 3a chronic kidney disease (HCC) (CMS/HCC); BMI 50.0-59.9, adult (CMS/HCC) 06/14/2024 Bamboo flowsheet [facility] [address] [facility] [place] [address] Jennifer Chirstine MD 06/14/2024 Travel 06/10/2024 11:30 AM EDT Office Visit [facility] [address] [facility] [place] [address] Lalitha Trujillo NP Acute laryngitis (Primary Dx) 06/10/2024 Bamboo flowsheet [facility] [address] [facility] [place] [address] Lalitha Trujillo NP 06/10/2024 Travel 06/07/2024 Telephone [facility] [place] [id number] [facility] [place] [address] Breanna Vasquez MA 06/03/2024 Abstract [facility] [address] [facility] [place] [address] Pastora Kohler NP 06/02/2024 Telephone [facility] [address] [place] [phone] Andreia Sanders, [facility] 05/31/2024 2:30 PM EDT Office Visit [facility] [address] [place] [address] Sean Torres PA Pre-op examination (Primary Dx) 05/31/2024 Bamboo flowsheet [facility] [address] [place] [address] Sean Torres PA 05/31/2024 Travel 05/24/2024 Telephone [facility] [address] [place] [phone] Jr. Akash Rodriguez, DO surgery 05/23/2024 1:30 PM EDT Office Visit [facility] [address] [place] [phone] Jorden Pino, DPM Bursitis of left foot (Primary Dx); Acquired keratoderma; Pain in left foot; Difficulty walking 05/23/2024 Bamboo flowsheet [facility] [address] [place] [phone] Jorden Pino, KJM 05/23/2024 Travel 05/19/2024 Travel 05/04/2024 Telephone [facility] [address] [facility] [place] [phone] Teri Main MA 04/26/2024 8:45 AM EDT Office Visit [facility] [address] [place] [phone] Jr. Akash Rodriguez, DO Acute pain of right shoulder (Primary Dx); Arthritis of right acromioclavicular joint; Biceps tendinitis, right; Partial nontraumatic tear of rotator cuff, right 04/26/2024 Bamboo flowsheet [facility] [address] [place] [phone] Jr. Akash Rodriguez, 04/26/2024 Travel from Last 3 Months Immunizations Immunization Administration Dates Next Due Influenza, Unspecified 10/17/2016 Influenza, injectable, quadr ivalent, preservative free 11/21/2022,02/26/2022,12/09/2016 Influenza, seasonal, injectable 01/03/2014 Influenza, seasonal, injecta ble, preservative free 01/03/2015 SARS-COV-2 (COVID-19) vaccin e, mRNA, spike protein, LNP, PF, 50 mcg/0.5 mL 11/21/2022 Family History Medical History Relation Name Comments brain tumor Father Heart disease Mother Relation Name Status Comments Father Mother Social History Tobacco Use Types Packs/Day Years Used Date Smoking Tobacco: Never Smokeless Tobacco: Never Tobacco Cessation:Counseling Given: Not Answered Alcohol Use Standard Drinks/Week Comments Not Currently [...] Sign Reading Time Taken Comments Blood Pressure 136/90 06/14/2024 10:35 AM EDT Pulse 91 06/14/2024 9:51 AM EDT Temperature 36.7 C (98.1 F) 06/10/2024 11:30 AM EDT Respiratory Rate 18 03/05/2024 8:53 AM EST Oxygen Saturation 94% 06/14/2024 9:51 AM EDT Inhaled Oxygen Concentration - - Weight 131 kg (289 lb 6.4 oz) 06/14/2024 9:51 AM EDT Height 160 cm (5' 3 ) 06/14/2024 9:51 AM EDT Body Mass Index 51.26 06/14/2024 9:51 AM EDT Plan of Treatment Upcoming Encounters Date Type Department Care Team (Late st Contact Info) Description 08/24/2024 8:30 AM EDT Office Visit [facility] [address] [place] [phone] Sean Torres, PA [address] [facility] [address] [place] [address] Health Maintenance Due Date Last Done Comments CT Colonography 1960 Colonoscopy 1960 Colorectal Cancer Screening 1960 FIT-DNA 1960 FIT 1960 FOBT 1960 Medicare Annual Wellness (AWV) 1960 Sigmoidoscopy 1960 Diabetes: Hemoglobin A1C 08/24/2024 025, 02/04/2024, 07/16/2023, Additional history exists Mammogram 09/14/2024 09/15/2023, 02/14/2019 Influenza Vaccine (Season Ended) 2024 11/21/2022, 02/26/2022, 12/09/2016, Additional history exists Diabetes: Urine Protein Screening 03/01/2025 025 Diabetes: Retinopathy Screening 05/04/2025 Pap Smear 06/14/2026 06/15/2023, 06/15/2023 Cervical Cancer Screening 06/14/2028 HPV/Cotest 06/14/2028 06/15/2023, 06/15/2023 Procedures Procedure Name Priority Date/Time Associated Diagnosis Comments HEMOGLOBIN A1C Routine 05/25/2024 MICROALBUMIN / CREATININE URINE RATIO Routine 03/01/2024 10:24 AM EST Type 2 diabetes mellitus with diabetic mononeuropathy, with long-term current use of insulin ([facility]) BI MAMMOGRAM SCREENING TOMOSYNTHESIS BILATERAL Routine 09/15/2023 11:20 AM EDT Encounter for screening mammogram for malignant neoplasm of breast DIABETIC RETINOPATHY SCREENING - OU - BOTH EYES Routine 05/05/2023 2:04 PM EDT from Last 3 Months or Most Recently Relevant to Health Maintenance Results * (ABNORMAL) Hemoglobin A1c (05/25/2024) HEMOGLOBIN A1C 7.5 Blood Venous blood specimen / Unknown 05/25/2024 Jennifer Christine MD LAB BLOOD ORDERABLES Final Re sult * (ABNORMAL) Microalbumin / creatinine urine ratio (03/01/2024 10:24 AM EST) CREATININE, RANDOM URINE 74 20 - 275 mg/dL [facility] ALBUMIN, URINE 9.3 See Note: mg/dL [facility] Comment: Reference Range: Reference Range Not established ALBUMIN/CREATININE RATIO, RANDOM URINE 126(H) <30 mg/g creat [facility] Comment: The ADA defines abnormalities in albumin excretion as follows: Albuminuria Category Result (mg/g creatinine) Normal to Mildly increased <30 Moderately increased 30-299 Severely increased > OR = 300 The ADA recommends that at least two of three specimens collected within a 3-6 month period be abnormal before considering a patient to be within a diagnostic category. Urine Urine specimen obtained by clean catch procedure / Unknown 03/01/2024 10:24 AM EST 03/01/2024 4:04 PM EST Narrative Resulting Agency Comment Performing Organization Information Site ID: [id number] Name: [facility] Address: [address] [place] [address], [address] [place] [id number] Director: Tobin Stratton MD us Kori Frederick VALUATION CONSULTANT LAB URINE ORDERABLES Fi nal Result [facility] * Bilateral screening mammogram with tomosynthesis (09/15/2023 11:20 AM EDT) Anatomical Region Laterality Modality Breast Bilateral Mammography 09/15/2023 1:11 PM EDT Impressions 09/16/2023 8:35 AM EDT BIRADS 1 - Negative Follow-up: Routine Screening Mamm Board Certified Radiologists. Accredited by the ACR and FDA. MAMMOGRAPHY IS VERY IMPORTANT TO YOUR HEALTH. THE [place] [employer] GUIDELINES RECOMMEND THAT WOMEN 40 [...] BY: ELECTRONICALLY SIGNED BY: Noman Caldwell MD Narrative 09/16/2023 8:35 AM EDT EXAMINATION: BI MAMMOGRAM SCREENING TOMOSYNTHESIS BILATERAL CLINICAL HISTORY:screening COMPARISON: February 14, 2019. RESULT: Density: Almost entirely fatty [1] Overall appearance is stable. There is no suspicious mass, asymmetry, architectural distortion, or calcification Procedure Note Noman Caldwell MD - 09/16/2023 EXAMINATION: BI MAMMOGRAM SCREENING TOMOSYNTHESIS BILATERAL CLINICAL HISTORY:screening COMPARISON: February 14, 2019. RESULT: Density: Almost entirely fatty [1] Overall appearance is stable. There is no suspicious mass, asymmetry, architectural distortion, orcalcification IMPRESSION: BIRADS 1 - Negative Follow-up: Routine Screening Mamm Board Certified Radiologists. Accredited by the ACR and FDA. MAMMOGRAPHY IS VERY IMPORTANT TO YOUR HEALTH. THE [place] CANC[employer] SOCIETYGUIDELINES RECOMMEND THAT WOMEN 40 YEARS OF AGE AND OLDER SHOULD HAVE AMAMMOGRAM EVERY YEAR. A REMINDER LETTER WILL BE SENT AT THE APPROPRIATE TIME. THIS FACILITYUTILIZES A REMINDER SYSTEM TO ENSURE ALL PATIENTS RECEIVE REMINDERNOTIFICATIONS AT THE APPROPRIATE TIME BASED ON THE RECOMMENDATIONS OF THISEXAM. THIS INCLUDES REMINDERS FOR ROUTINE SCREENING MAMMOGRAMS, DIAGNOSTICMAMMOGRAMS IN WHICH THE PATIENT IS ASKED TO RETURN FOR ADDITIONAL VIEWS,OR OTHER BREAST IMAGING INTERVENTIONS WHEN APPROPRIATE. THE PATIENT WILLBE PLACED IN THE APPROPRIATE REMINDER SYSTEM INCLUDING A REMINDER AT THEAPPROPRIATE TIME FOR ANY PENDING ADDITIONAL VIEWS. TRANSCRIBED BY: ELECTRONICALLY SIGNED BY: Noman Caldwell MD us Jennifer Christine MD IMG BI PROCEDURES Final Resul t * Diabetic Retinopathy Screening - OU - Both Eyes (05/05/2023 2:04 PM EDT) Anatomical Region Laterality Modality Head Other us Jennifer Christine MD OPHTH PHOTOGRAPHY Final Resul t from Last 3 Months or Most Recently Relevant to Health Maintenance Insurance [facility] Care Teams Milk Route Deliverer Relationship Specialty Start Date End Date Jennifer Christine MD [address] [place], [place] [phone] PCP - General Family Medicine 04/10/23 Pastora Kohler NP [address] [place], [place] [phone] PCP - [facility] 02/16/23 03/18/80 Pastora Kohler NP [address] [place] [address] Nurse Practitioner Family Medicine 04/10/23
--- OUTSIDE RECORDS SUMMARY | 2024-07-27 09:09 | XMS_ITS | Encounter Summary ---
Author Organization [facility] Address [address] [place] [address] Care Team Providers Care Usability Specialist Name Role Phone Judith Newman DO Unavailable [phone] Judith Newman DO Primary Care Provider [phone] Jennifer Christine MD Primary Care Provider Pastora Kohler FEDERAL DISTRICT LAW CLERK Unavailable Pastora Kohler FEDERAL DISTRICT LAW CLERK Unavailable [phone] Encounter Details Date Type Department Care Team (Late Contact Info) Description 10/22/2022 Abstract [facility] [address] [place] [address] Judith Newman DO [address] [address] Social History Tobacco Use Types [...] Office Visit [facility] [address] [place] [phone] Sean Torres PA [address] [facility] [address] [place] [address] documented as of this encounter Visit Diagnoses Not on filedocumented in this encounter Care Teams Usability Specialist Relationship Specialty Start Date End Date Judith Newman DO [address] [facility] [address] [place] [address] PCP - [facility] 09/16/21 12/16/22 Judith Newman DO [address] [facility] [place] [address] [facility] [place] [address] PCP - General Family Medicine 06/24/22 04/09/23 Jennifer Christine MD [address] [place] [address] PCP - General Family Medicine 04/10/23 Pastora Kohler NP [address] [place], [place] [phone] PCP - [facility] 02/16/23 03/18/80 Pastora Kohler NP [address] [place] [address] Nurse Practitioner Family Medicine 04/10/23 documented as of this encounter
--- OUTSIDE RECORDS SUMMARY | 2024-07-27 09:09 | XMS_ITS | Clinical Summary ---
Author Organization [facility] Address [address] [place] [address] Care Team Providers Care Instrument Designer Name Role Phone AdanDago reynagaCasper Primary Care Provider [phone] Allergies No known active allergies Medications lisinopril(PRINI SHAHRAM 20 MG TAB) Take one(1) tablet daily. 0 9 Active fluoxetine hcl(PROZAC 20 MG CAP) Take one(1) capsule daily. 0 9 Active propoxyphene/beth taminophen(DARVO CET-N 100 100 MG-650 MG TAB) Take one (1) tablet four(4) times daily as needed for pain. 0 9 Active gabapentin(NEURO NTIN 300 MG CAP)Indications: Pain in limb,Reflex sympathetic dystrophy of the upper limb Take one(1) capsule three(3) times daily as directed 90 1 9 Active Active Problems Problem Noted Date Diagnosed Date Unspecified essential hypertension 02/23/2008 Other specified disorders of rotator cuff syndrome of shoulder and allied disorders 02/23/2008 Other and unspecified disc disorder of cervical region 02/23/2008 Family History Medical History Relation Comments Hypertension Brother Hypertension Mother Hypertension Sister Thyroid Sister Relation Status Comments Brother Mother Sister Social History Tobacco Use Types Packs/Day Years Used Date Smoking Tobacco: Every Day Cigarettes 0.5 20 Alcohol Use Standard Drinks/Week Comments No 0 (1 standard drink = 0.6 oz pur e alcohol) Comments No Sex and Gender Information Value Date Recorded Sex Assigned at Not on file Legal Sex Female 8:17 AM EST Gender Identity Not on file Sexual Orientation Not on file 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 file Not on file Not on file Last Filed Vital Signs Vital Sign Reading Time Taken Comments Blood Pressure 142/86 02/29/2008 10:03 AM EST Pulse 73 02/29/2008 10:03 AM EST Temperature - - Respiratory Rate 20 02/29/2008 10:03 AM EST Oxygen Saturation 99% 02/29/2008 10:03 AM EST Inhaled Oxygen Concentration - - Weight - - Height - - Body Mass Index - - Plan of Treatment Health Maintenance Due Date Last Done Comments Anxiety Screening 1978 Depression Screening 1978 HIV Screening 1978 Hepatitis C Screening 1978 DTaP,Tdap,Td Vaccine (1 - Tdap) 1979 Cervical Cancer Screening [address] Colonography 2005 Cologuard (FIT-DNA) 2005 Colonoscopy 2005 Colorectal Cancer Screening 2005 Diabetes Screening 2005 Fecal Occult Blood 2005 Lipid Screening 2005 Sigmoidoscopy 2005 Pneumococcal Vaccine: 50+ (1 of 1 - PCV) 2010 Shingrix Vaccine (1 of 2) 2010 Covid-19 Vaccine (1 - 2023- season) 2023 Influenza Vaccine (Season Ended) 2024 RSV Vaccine (1 - 1-dose 75+ series) 2035 Insurance PPO OOS Care Teams Instrument Designer Relationship Specialty Start Date End Date Dago Keith [address] [place] [phone] PCP - General 02/15/08
--- OUTSIDE RECORDS SUMMARY | 2024-07-27 09:30 | XMS_ITS | CCD ---
Author Organization [facility] Care Team Providers Care Commissions Specialist Name Role Phone QUE BLAKE Unavailable Unavailable QUE BLAKE Unavailable Unavailable SELF, REFERRED Unavailable Unavailable OLIVE, ROSALES Unavailable Unavailable MA Unavailable Unavailable QUE BLAKE Unavailable Unavailable WIEPKING, LAUREN Unavailable Unavailable SELF, REFERRED Unavailable Unavailable RICKY, JULIEN Unavailable Unavailable OLIVE, ROSALES Unavailable Unavailable QUE BLAKE Unavailable Unavailable QUE BLAKE Unavailable Unavailable QUE BLAKE Unavailable Unavailable OLIVE, ROSALES Unavailable Unavailable Clifford Munoz Jr. Unavailable [phone] Clifford Munoz Unavailable Lili Burgos Unavailable [facility] Unava ilable OLIVIER ., DR ADAM Liu Admitting Unavailable AGUAYO ., DR ADAM Liu Attending Unavailable HERNANDEZ .ALICIA Consulting Unavailable LAKSHMIPATHY ., NARENDRANLEN Consulting Daphne vailable [facility] Unava ilable LAKSHMIPATHY ., NARENDRANATH Admitting Daphne vailable LAKSHMIPATHY ., NARENDRALPHATH Attending Daphne vailable [facility] Unava ilable DR BLANE THOMAS Consulting Unavailable HERNANDEZ .ALICIA Admitting Unavailable HERNANDEZ .ALICIA Attending Unavailable HERNANDEZ ., ALICIA Consulting Unavailable [facility] Unava ilable HALKER ., JASON Attending Unavailable HALKER ., JASON Consulting Unavailable LAKSHMIPATHY ., NARENDRANATH Admitting Daphne vailable [facility] Unava ilable HALKER ., JASON Admitting Unavailable HALKER ., JASON Attending Unavailable LAKSHMIPATHY ., NARENDRANATH Consulting Dahpne vailable [facility] Unava ilable AGUAYO ., DR ADAM Liu Admitting Unavailable AGUAYO ., DR ADAM Liu Attending Unavailable HERNANDEZ ., ALICIA Consulting Unavailable [facility] Unava ilable HERNANDEZ ., ALICIA Consulting Unavailable AGUAYO ., DR ADAM Liu Attending Unavailable AGUAYO ., DR ADAM Liu Admitting Unavailable [facility] Unava ilable AGUAYO ., DR ADAM Liu Admitting Unavailable AGUAYO ., DR ADAM Liu Attending Unavailable HERNANDEZ ., ALICIA Consulting Unavailable [facility] Unava ilable LAKSHMIPATHY ., NARENDRANATH Admitting Daphne vailable LAKSHMIPATHY ., NARENDRANATH Attending Daphne vailable LAKSHMIPATHY ., NARENDRANATH Consulting Daphne vailable Martine Tobias Unavailable Majo, Kalie Primary Care Provider DO Majo Kalie Attending Provider [phone] DO Judith Patel Primary Care Provider [phone] UMU Tobias Attending Provider Majo, Kalie Primary Care Provider Majo, Kalie Attending Provider [phone] Stoney Turner Unavailable Majo, DO Kalie Primary Care Provider Majo, DO Kalie Attending Provider Shawn Webb Attending Provider [phone] EDWIN MORENO Attending Unavailable AMANDA JUDITH G Referring Unavailable GREGG PATELEE G Primary Care Unavailable Pastora John APRN, CNP Primary Care Velasquez mahmood PASTORA KOHLER Primary Care Unavailab LOPEZ Noe Referring Unavailable Jennifer Cabrera MD Primary Care Provider Pastora Kohler NP Unavailable Jose F VEGETABLE INSPECTOR, Pastora A Unavailable Lauren Torres PA-C Attending Provider [phone] Jose F VEGETABLE INSPECTOR-C, Pastora Primary Care Provider Judith Patel DO Primary Care Provider [phone] DAUDI, SAYEEMA N Attending Unavailable DAUDI, SAYEEMA N Referring Unavailable KOHLER, PASTORA A Primary Care Unavailab le LOGAN, HEMINDERMEET Referring Unavailable LOGAN, HEMINDERMEET Attending Unavailable KOHLER, PASTORA A Primary Care Unavailab le LOGAN, HEMINDERMEET Referring Unavailable LOGAN, HEMINDERMEET Attending Unavailable KOHLER, PASTORA A Primary Care Unavailab le KOHLER, PASTORA A Primary Care Unavailab le DAUDI, SAYEEMA N Admitting Unavailable DAUDI, SAYEEMA N [...] Unavailab le DAUDI, SAYEEMA N Referring Unavailable DAUDI, SAYEEMA N Referring Unavailable KOHLER, PASTORA A Primary Care Unavailab Lauren Montiel PA-C Attending Provider Jose F VEGETABLE INSPECTOR-C, Pastora Primary Care Provider Lili Burgos APRN Attending Provider Lauren Torres Admitting Unavailable Lauren Torres Attending Unavailable Pastora Kohler Primary Care Unavailable Lili Burgos Admitting Unavailable Lili Burgos Attending Unavailable JUDITH PATEL Referring Unavailable JUDITH PATEL Primary Care Unavailable AKANKSHA SANFORD Attending Unavailable JUDITH PATEL Referring Unavailable JUDITH PATEL Primary Care Unavailable AKANKSHA SANFORD Attending Unavailable JUDITH PATEL Referring Unavailable JUDITH PATEL Primary Care Unavailable AKANKSHA SANFORD Attending Unavailable JUDITH PATEL Referring Unavailable AMANDA, JUDITH Villegas Primary Care Unavailable NISHI PRADHAN Attending Unavailable RICA RODRIGUEZ Attending Unavailable JENNIFER CABRERA Primary Care Unavailable RICA RODRIGUEZ Admitting Unavailable RICA RODRIGUEZ Attending Unavailable Salvador Galo Unavailable JENNIFER CABRERA Primary Care Unavailable RICA RODRIGUEZ Admitting Unavailable JR. JENNIFER, RICA Nair Attending UnavailSEAN Wilde Attending Unavailable JR. JENNIFER, RICA Nair Referring Unavaila ALEXANDRA Huizar Attending Unavailab dusty OSORIO, ALEXANDRA Nunes Referring Unavailab dusty RODRIGUEZ JR., RICA Nair Attending UnavailBLANE Rdz Attending Unavailable JENNIFER CABRERA Referring Unavailable LAUREN TORRES Attending Unavailable BRIAN, LAUREN Bloom Attending Unavailable LALITHA TRUJILLO Attending Unavailable JENNIFER CABRERA Attending Unavailable BRIAN, LAUREN Bloom Attending Unavailable BRIAN, LAUREN Bloom Attending Unavailable BRIAN, LAUREN Bloom Attending Unavailable BRIAN, LAUREN Bloom Referring Unavailable BRIAN, LAUREN Bloom Referring Unavailable BRIAN, LAUREN Bloom Attending Unavailable BRIAN, LAUREN Bloom Attending Unavailable BRIAN, LAUREN Bloom Referring Unavailable PASTORA KOHLER Attending Unavailab dusty TORRES, LAUREN Bloom Attending Unavailable JO, ALEXANDRA Nunes Attending Unavailab dusty OSORIO, ALEXANDRA Nunes Attending Unavailab dusty Medications Current Medications Medication Drug Class(es) Dates [...] times daily as needed April 06, 2023 1:00am Start: 01-07-2023 take 1 tablet by mickey [...] NEEDED FOR PAIN 01/07/2023 Active Start: 12-10-2022 oxyCODONE-acet aminophen (Percocet) 5-325 MG tablet Take 1 tablet by mouth as needed in the morning and 1 tablet as needed at noon and 1 tablet as needed in the evening. 12/10/2022 Active Start: 12-10-2022 take 1 tablet by [...] Q6H as needed for left hip pain 12 09January 03, 2021 October 30, 2022 9:55am amoxicillin 875 mg / clavulanate 125 mg [...] PO Daily April 06, 2023 1:00am Start: 01-28-2023 take 1 tablet by mickey every twenty-four hours ARIPiprazole (ABILIFY) 15 MG tablet Take 1 tablet by mouth every 24 hours 0 01/28/2023 Active Start: 12-17-2020 End: 04-06-2023 take 1 tablet by mouth once daily Aripiprazole 10 mg t ablet Discontinued 10 MG PO Daily December 17, 2020 12:00am April 06, 2023 5:24pm atorvastatin 40 mg oral tablet (20 sources) [...] Start: 12-17-2020 take 1 tablet by mickey th once daily Bupropion Hcl 300 mg tablet extended release 24 hr Active 300 MG PO Daily December 17, 2020 12:00am cephalexin 500 mg oral capsule (8 sources) [...] 08-01-2022 Start: 08-01-2022 take 1 capsule by [facility] every week Start: 08-01-2022 take 1 capsule by [facility] every week Cholecalciferol 1.25 MG (52736 UT) 1 capsule Orally weekly for 56 days Then OtC 4000 u daily therafter Jul, Active take 2 tablets by [facility] every twenty-four hours Vitamin D3 50 MCG (2000 UT) 2 tablets Orally Once a day Not-Taking/PRN take 1 capsule by [facility] every week Cholecalciferol 100 MCG (4000 UT) 1 capsule Orally weekly for 56 days Then OtC 4000 u daily therafter Active take 1 capsule by [facility] every week Cholecalciferol 50 MCG (2000 UT) 1 capsule Orally weekly for 56 days Then OtC 4000 u daily therafter Active take 1 capsule by [facility] every week Cholecalciferol 1.25 MG (53837 UT) 1 capsule Orally weekly for 56 [...] (20 sources) Provitamin D2 Compound Start: 08-01-2022 ergocalciferol (Carlyn min D2) 1.25 MG (37347 UT) capsule 08/01/2022 Active Start: 08-01-2022 take 1 capsule by [facility] every week ergocalciferol (Vitamin D2) 1.25 MG (47766 UT) capsule TAKE 1 CAPSULE BY MOUTH WEEKLY FOR 56 DAYS 08/01/2022 Active ERGOCALCIFEROL, VITAMIN D2, ORAL (2 sources) ERGOCALCIFEROL, VITAMIN D2, ORAL Take by mouth. Active hydroCHLOROthiazide 12.5 mg / lisinopril 20 mg oral tablet (2 sources) Thiazide Diuretic, Angiotensin Converting Enzyme Inhibitor lisinopril-hydroCHLO ROthiaz hilton (PRINZIDE;ZESTORETIC) 20-12.5 MG per tablet End: 06-03-2023 take 2 tablets by mouth once daily lisinopril-hydroCHLOROthiazide (PRINZIDE,ZESTORETIC) 20-12.5 mg per tablet Take 2 tablets by mouth daily. 06/03/2023 Discontinued hydroCHLOROthiazide 12.5 mg / losartan potassium 50 mg oral tablet (20 sources) Thiazide Diuretic, Angiotensin 2 Receptor Karrie Start: 05-24-2023 End: 06-16-2024 take 1 tablet by mouth once daily losartan-hydroCHLOROthiazide (Hyzaar) 50-12.5 MG tablet Indications: Primary hypertension (CMS/HCC) Take 1 tablet by mouth Daily 90 tablet 1 06/16/2024 Active take 1 tablet by mickey once in the morning losartan-hydroCHLOROthiazide (HYZAAR) 50 -12.5 mg per tablet Take 1 tablet by mouth in the morning. Active take 1 tablet by mickey th every twenty-four hours Losartan Potassium-HCTZ 50-12.5 MG 1 tab let Orally Once a day Active take 1 tablet by mickey th every twenty-four hours hydrOXYzine hydrochloride 10 mg oral tablet (20 sources) Antihistamine Start: 05-11-2023 take 1 tablet by mouth three times daily as needed Hydroxyzine Hcl 10 mg tablet Active 10 MG PO Three times daily as needed May 11, 2023 12:00am Start: 04-22-2023 End: 05-31-2024 take 1 capsule by mouth three times daily as needed hydrOXYzine pamoate (Vistaril) 25 MG capsule Take 25 mg by mouth 3 (three) times a day as needed 04/22/2023 05/31/2024 Discontinued (Therapy completed) Start: 04-22-2023 take 1 capsule by mo uth four times daily as needed hydrOXYzine pamoate (VISTARIL) 25 MG capsule Take 1 capsule by mouth 4 times daily as needed 0 04/22/2023 Active take 1 tablet by mickey th every six hours as needed for anxiety hydrOXYzine HCl (Atarax) 25 MG tablet Take 25 mg by mouth every 6 (six) hours if needed for anxiety PRN Active 3 ml insulin aspart, human 100 unt/ml pen injector (14 sources) Insulin Analog Start: 04-07-2023 FIASP FLEXTOUC [...] hyperglycemia, with long-term current use of insulin ([facility]) Inject 48 Units under the [...] 48 UNIT SUBCUT Daily December 30, 2023 10:53am PAP approved thru 02/16/2024 Start: 12-30-2023 Insulin Deglud ec (Tresiba Flextouch U-100) 100 unit/mL (3 mL) insulin pen Active 48 UNIT SUBCUT Daily December 30, 2023 9:53am PAP approved thru 02/16/2024 Start: 09-23-2023 End: 12-30-2023 Insulin Degludec (Tresiba Fl extouch U-100) 100 unit/mL (3 mL) insulin pen Discontinued 50 UNIT SUBCUT Daily September 23, 2023 2:35pm December 30, 2023 10:54am PAP approved thru 02/16/2024 Start: 09-23-2023 End: [...] 0 .ROUTE .COMPLEX 200 December 21, 2023 8:57am TAKE 1 TABLET BY MOUTH TWICE DAILY WITH A MEAL Start: 12-17-2020 End: 12-21-2023 take 1 tablet by mouth twice daily Metformin 1,000 mg tablet Discontinued 1000 MG PO Twice daily December 17, 2020 12:00am December 21, 2023 8:57am metFORMIN (Gluco phage) 1000 MG tablet 1 (one) time each day at the same time Active take 1 tablet by mickey th [...] take 1 tablet by mouth twice daily Metoprolol Tartrate 25 mg tablet Active 25 MG PO Twice daily April 06, 2023 1:00am mupirocin 0.02 mg/mg topical ointment (1 source) [...] 06, 2023 5:24pm May 11, 2023 11:50am Start: 12-17-2020 End: 05-11-2023 take 100 mg by mouth once daily Nortriptyline Disconti nued 100 MG PO Daily April 06, 2023 5:24pm May 11, 2023 11:50am take 1 capsule by mo uth every twenty-four hours Nortriptyline HCl 75 MG 1 capsule Orally Once a day Active nystatin 100 unt/mg topical powder (14 sources) Polyene Antifungal Start: 05-03-2024 Klayesta 10 0000 UNIT/GM powder APPLY EXTERNALLY TO AFFECTED SKIN AREAS TWICE DAILY NEEDED 05/03/2024 Active Start: 06-15-2023 nystatin (MYCO STATIN) 125049 UNIT/GM powder Indications: Kelsea albicans infection Apply 2 times daily to abdominal and breast folds 60 g 0 06/15/2023 Active omeprazole 20 mg delayed release oral capsule (20 sources) Proton Pump Inhibitor Start: 12-17-2020 End: 04-06-2023 take 1 capsule by mouth once daily at bedtime Omeprazole 20 mg capsule,delayed release(DR/EC) Active 20 MG PO Daily at bedtime April 06, 2023 5:23pm End: 06-03-2023 take 1 tablet by mouth [...] PO Twice daily April 06, 2023 1:00am 1 mg dose 1.5 ml semaglutide 1.34 mg/ml pen injector (2 sources) Start: 05-07-2020 OZEMPIC 1 mg/dose (2 mg/1.5 mL) pen injector 05/07/2020 Active Semaglutide (Ozempic) 2 mg/dose (8 mg/3 mL) pen injector (18 sources) Start: 04-28-2024 inject 2 mg by subcutaneous injection every week Semaglutide (Ozempic) 2 mg/dose (8 mg/3 mL) pen injector Active 2 MG SUBCUT every week April 28, 2024 11:25am *PT TO USE [email or web address] PATIENT ASSISTANCE VOUCHER FOR 1 MONTH SUPPLY Start: 03-30-2024 End: 04-28-2024 inject 2 mg by subcutaneous injection every week Semaglutide (Ozempic) 2 mg/dose (8 mg/3 mL) pen injector Discontinued 2 MG SUBCUT every week 3 March 30, 2024 11:03am April 28, 2024 11:27am JAYSON NORDIS[facility] PATIENT ASSISTANCE Start: 05-11-2023 End: 03-30-2024 inject 2 mg by subcutaneous injection every week Semaglutide (Ozempic) 2 mg/dose (8 mg/3 mL) pen injector Discontinued 2 MG SUBCUT every week May 11, 2023 1:01pm March 30, 2024 11:05am PAP approved thru 02/16/2024 Start: 05-11-2023 inject [...] pen-injector (20 sources) inject 2 mg by subcu taneous injection every week Semaglutide, 2 MG/DOSE, (Ozempic, 2 MG/DOSE,) 8 MG/3ML solution pen-injector Inject 2 mg under the skin 1 (one) time per week Active inject 2 mg by subcu taneous injection every week Semaglutide, 2 MG/DOSE, (Ozempic, [...] mg/ml injection (5 sources) Start: 06-30-2023 sodium chlorid e flush 0.9 [...] Twice daily as needed for Pain December 17, 2020 12:00am January 02, 2021 11:17pm End: 06-30-2023 HYDROcodone-acetaminophen (N ORCO) 5-325 MG per tablet Take 1 tablet by mouth every 6 hours as needed for Pain. Max Daily Amount: 4 tablets 0 06/30/2023 Discontinued (Stop Taking at Discharge) take 1 tablet by mickey th every six hours Jones Active take 1 tablet by mickey th twice daily as needed Jones 5-325 MG 1 tablet as needed Orally bid Active [id number] actuat albuterol 0.09 mg/actuat metered dose inhaler (20 sources) beta2-Adrenergic Agonist Start: 01-19-2024 End: 01-18-2025 take 2 puff(s) by inhalation every four hours for wheezing albuterol HFA 90 mcg/act inhaler Indications: Wheezing Inhale 2 puffs every 4 (four) hours if needed for wheezing 18 g 01/19/2024 05/31/2024 Discontinued (Therapy completed) ALPRAZolam 0.5 mg oral tablet (20 sources) Benzodiazepine End: 05-31-2024 ALPRAZolam (Xanax) 0.5 MG tablet daily as needed 05/31/2024 Discontinued (Therapy completed) ALPRAZOLAM ORAL Take by mouth. Active amLODIPine 10 mg oral tablet (20 sources) Dihydropyridine Calcium Channel Karrie Start: 12-17-2020 End: 04-06-2023 take 1 tablet by mouth once daily Amlodipine 10 mg tablet Discontinued 10 MG PO Daily December 17, 2020 12:00am April 06, 2023 5:31pm Start: 08-04-2019 End: 06-03-2023 amLODIPine (NORVASC) 5 mg ta blet 08/04/2019 06/03/2023 Discontinued baclofen 10 mg oral tablet (20 sources) gamma-Aminobutyric Acid-ergic Agonist Start: 12-17-2020 End: 06-03-2023 take 1 tablet by mouth once daily at bedtime Baclofen 10 mg tablet Discontinued 10 MG PO Daily at bedtime December 17, 2020 12:00am October 30, 2022 9:54am take 1 tablet by mouth three carrie [...] on Thu12/29/23 at 1100, For 1 dose diazePAM 5 mg oral tablet (20 sources) Benzodiazepine Start: 03-02-2024 End: 05-31-2024 diazePAM (Valium) 5 MG tablet Indications: History of claustrophobia 1 tab 30-60 mins before procedure may repeat X1 if need for claustrophobia 2 tablet 03/02/2024 05/31/2024 Discontinued (Therapy completed) empagliflozin 25 mg oral tablet (20 sources) Sodium-Glucose Cotransporter 2 Inhibitor Start: 04-06-2023 take 25 mg by mouth once daily Empagliflozin Active 25 MG PO Daily April 06, 2023 12:00am Start: 08-01-2022 take 1 tablet by mickey every twenty-four hours Start: 05-10-2020 End: 06-03-2023 take 1 tablet by mouth once daily Empagliflozin (Jardi ance) 10 mg tablet Discontinued 20 MG PO Daily December 17, 2020 12:00am April 06, 2023 5:13pm fluocinonide 1 mg/ml topical cream (13 sources) Corticosteroid Start: 12-17-2020 End: 12-30-2023 Fluocinonide 0.1 % Cream Discontinued 1 APPLIC TOPICAL 2-4 TIMES PER DAY as needed for irritation December 17, 2020 12:00am December 30, 2023 10:52am furosemide 20 mg oral tablet (20 sources) Loop Diuretic Start: 08-03-2019 End: 06-03-2023 furosemide (LASIX) 20 mg tablet 08/03/2019 06/03/2023 Discontinued gabapentin 300 mg oral capsule (20 sources) Anti-epileptic Agent End: 05-31-2024 gabapentin (Neurontin) 300 MG capsule 05/31/2024 Discontinued (Therapy completed) GABAPENTIN ORAL Take by mouth. Active glipiZIDE 10 mg oral tablet (1 source) [...] tablet Discontinued 30 MG PO Daily December 17, [...] Active propranolol hydrochloride 10 mg oral tablet (13 sources) beta-Adrenergic Karrie Start: 12-17-2020 End: 12-17-2020 Propranolol 10 mg tablet Discontinued MG TABLET December 17, 2020 12:00am December 17, 2020 11:44am Start: 12-17-2020 End: 12-17-2020 Propranolol Discontinued MG TABLET December 17, 2020 12:00am December 17, 2020 11:44am Semaglutide (13 sources) Start: 12-17-2020 End: 04-06-2023 inject 1 [...] (acute kidney injury)] Episodic Administrative/socia l admission (17 sources) Dietary counseling and surveillance; 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: [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 status] Onset: 11-21-2020 Resolved: 10-28-2021 Episodic Anxiety disorders (20 sources) Anxiety disorder, unspecified; 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: [Generalized anxiety disorder] Onset: 09-08-2016 06-12-2023 Chronic Cancer of uterus (20 sources) Malignant neoplasm of endometrium; 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: [Malignant neoplasm of endometrium of corpus uteri ] Onset: 06-03-2023 06-12-2023 Chronic Chronic kidney disease (20 sources) Chronic kidney disease stage 2; 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: [...] ion of Meter. 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] Onset: 04-12-2024 05-11-2023 Episodic Other aftercare (15 sources) 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; 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: [Long-term (current) use of insulin] Onset: 11-21-2020 Resolved: 10-28-2021 Episodic Other aftercare (1 source) 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 status; 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: [skilled nursing (current) use of insulin] 05-11-2023 Episodic Other connective tissue disease (1 source) Presence of right artificial knee joint; 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: [PRESENCE OF RIGHT ARTIFICIAL KNEE JOINT] Onset: 09-20-2016 Chronic Other connective tissue disease (13 sources) History of total knee arthroplasty; 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: [...] [Arthrodesis status] Episodic Other connective tissue disease (2 sources) Non-traumatic partial tear of right rotator cuff; 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: [Incomplete rotator cuff tear or rupture of right shoulder, not specified as traumatic] 04-25-2024 Episodic Other connective tissue disease (2 sources) Bursitis of left foot; 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: [Other enthesopathy of left foot and ankle] 05-23-2024 Episodic Other connective tissue disease (2 sources) Pain in left foot; 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: [Pain in left foot] 05-23-2024 Episodic Other connective tissue disease (1 source) Complete rotator cuff tear or rupture of right shoulder, not specified as traumatic; Translations: [Complete rotator cuff tear or rupture of right shoulder, not specified as traumatic] Onset: 06-16-2024 Episodic Other inflammatory condition of skin (20 [...] other nonspecific skin eruption] 03-05-2024 Episodic Other skin disorders (2 sources) Acquired keratoderma; 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] 05-23-2024 Episodic Other upper respiratory infections (3 sources) Acute pansinusitis; Translations: [Acute pansinusitis, unspecified] 04-12-2024 Episodic Residual codes; unclassified (20 sources) Sleep apnea; Translations: [Sleep apnea, unspecified] Onset: 07-28-2023 04-12-2024 Chronic Residual codes; unclassified (1 source) Asymptomatic menopausal state Episodic Residual codes; unclassified (4 sources) History of arthroscopic procedure on shoulder; Translations: [Other specified postprocedural states] 06-21-2024 Episodic Screening or history of mental health [...] 09-08-2016 Resolved: 11-21-2020 Chronic Unclassified (1 source) skilled nursing (current) use of oral hypoglycemic drugs; Translations: [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 OF ORAL HYPOGLYCEMIC DRUGS] Onset: [...] A PROCEDURE, INITIAL ENCOUNTER] Onset: 09-20-2016 Episodic Other connective tissue disease (1 source) Other specified soft tissue disorders; Translations: [OTHER SPECIFIED SOFT TISSUE DISORDERS] Onset: 09-20-2016 Episodic Other connective tissue disease (20 sources) Muscle pain; Translations: [Myalgia, unspecified site] Onset: 11-03-2022 06-12-2023 Episodic Other connective tissue disease (1 source) Disorder of rotator cuff; Translations: [Unspecified disorder of synovium and tendon, unspecified shoulder] Onset: 02-23-2008 06-12-2023 Episodic Other connective tissue disease (20 sources) Bicipital tendinitis, right shoulder; Translations: [Bicipital tenosynovitis] Onset: 03-23-2024 2024 Episodic Other nervous system disorders (20 sources) [...] unspecified shoulder] Onset: 11-03-2022 11-03-2022 Episodic Other non-traumatic joint disorders (20 sources) Disorder of shoulder; Translations: [Other specified joint disorders, right shoulder] Onset: 03-23-2024 03-23-2024 Episodic Other screening for suspected conditions (not [...] Test Name Value Interpretation Reference Range Facility Coding Summaryon 06-22-2024 Coding Summary HTMLBase 64 AnbjgpbtGYe3iKs+PGhlYWQ+P Z6JTDDgS83xcQHgpQ8yC7JKRV lOSywgQVBQTElOSyIgbmFtZT1 kaXNjZXJu IC8+ES0qLTNhWehoaONvh6V4x XT2H97fom9pLCxqlLU0BXEkLo Bscxdea3hhoKr0QFgnIbwfBrC t DIIwhD26PFS7vM49Ji35tOMxb LAdl0kbhWk2EgMtYXJgCFP1uN uoTGwmj2VoFZRxN61ycANvn5M 6 YLAjfQmetCNtOgPahUG3gR7yZ Rkzvgqjz6gqpomhBjs1ka76bX Soa9Y5fXX0P4EjwsO9XMQkkNC g DmzbwNLRcJ0tjfdty7qiznbsC rMnJHTgVQd1YTb7TNTpjMmwKm EhZB49EFS3ABWwsrDyB0EfPRH s gIilFpS3v9T9Jn8PY5MHOhrgL 1VNTUFSWTwvdGQ+DE59vz08F2 HfKcezOdb4IHTfEIV3mQM5gR6 n KOEjDEirt6E9lJR6I5KqnwAqo v5cw6zrMCHpBMxgY91lqYMzq9 Z1DVIpiZH9FDGltZllKdRnsN1 3 Oyc+LMNxsBkpj2UxAhgba0ail 2sheRo3CrczSSShviXnjRopXQ W7a7ZtQy8sQCIbdEW7iRJ6dP6 i XtPzKyQ0VAkqM288GwNiyFOiM wixN88eI6SpqPB+LQKpClw2IQ UojWhtGP5rZ7VqCTYhrgjceKL m uZaaIA9kWKUgymheUTPwkN6iE TIfQ9i7VzKoBaJ7IBolB8MgYE BvwlhmWx77lC0tFmMwCgJ4VVx u Q0VfwlQ3QBIzlFSiJAfzREM1C 90qb8C6DBPsWOIoQTD7rVB8qX 1hbGlnbjogbGVmdDsgdmVydGl j SEjsFHyvI948QSAelArjXtGvG GluZyBEYXRlOiAgMDUvMDcvMj AyNTwvdGQ+YYZaMNB0iQxgIUI n yVAyHHzvVe3znTolfQvbYU3kG FUxmkucIFDgrT0dFYJjdFRibR bjSQ7nGXFtaxwbn476GsAhEPE 0 YWGlqNRgP4OngY6hWaAbAXEgD IJlB3FhhXSiAMvoB031FCowXx T0IAOdbqWxB9OcSJVzhXlsSjK 0 l0P4Le1Ow4WcbhobR2EdyYNcE lAaXdkpFCr9T7ByZozsxJX+PC 96YLHyYB23DKr7MSJ0sIxdJVt i YHMtM4AplE6eFzTdSVApGYOrP yc+PHRhYmxlIHdpZHRoPScxMD ZiLyJxfXksIN0hVv2jVEJdJKY v xOutpGAiNpRsi3kiYUDwLBxaO A3ssLjhR5UlwRA7MSEqk3k0Vw 42R20aN1PjgJX+RMVtfSP4kYC 0 rI3zQeBhWvM2ZHgsJ098BfQnn ZRxHnxnd7ylf2xsgOc1NhF8TD FyqtIvzWtzGFQ5r5TpFs27U17 s IHdpZHRoPSIxNSUiIHZhbGlnb x5hnR4oYh2+KAGvyBU0lCM1wH 4qByOlRsZ7EPngS056DtAtyOD v Zismt4dwo0jtqWr5QcIvKFZhz oRtgOubEIL6p4RaVe16B9OyuB tgl3DiWcg3cs54zJVxj4F5tDP 9 N3TmZIVujgdljTWccVopLN0hM CWtuihdSCEwiF8rGBVeQ2e0Vy LnOrH2SPeeZ6SwybL4CNOvtXL g TLUniHJOyQ9rbfqtm5mnxmkzU jZfUIXyDYw7GSf1HBNbyHwdFj UzRQO1XkR6ETO5hVCpxG9poAv n tnqeoS0uMqj+LSE4qKTutIHFY C9hZnlkmUA+DGFsJAQ4vLxcAL otGKIsrX8lXWMrG4i7NmTuCjT 1 DOohB9SchsH4WLAofPWjTDRla IPXiP6zgkafk6ujdldtDhYoCD IdPRs5NEk4IUExoUkrJlRpMST 0 YpP0CAK3aRJnmF7omKsyrttel G9wOyc+NhffdFvnOOH6BWl7M0 ZcDap2QICadKflIL7ucQMxALk u Eg8gqDdqiJsqBY9lXOCnaizdf 242LmNec8fqWWKqpKNyCEofAG M1V66jr2R1FTKaCFJpKHZ6yHR 4 mD5tdVtjhezzpJYvdGgyxkLrw GxfSTnhHMoiH821AINbwYqfNw KuIZf9Y6CyKvz7UODyaFyaHM8 n oQDlJTssLn1ydLzapLffIW7aR AAnijjli606FjAmo7ttNCFjgU CqASjyBXK0Y35ha6B4DTKyINI w PGT8cEZ7jZ6qvPlpurtazIByt WckksIzjZfsJVdzFVevT110JD LgfEgbPoHmmHn8E6TyFbb8ACR z lAaxKX7njVIrFFfoJo9juLjrf WteZC7fSBDcectre127AeFyl4 cqLTQkbRKmSIphJRX5W09ob7I 6 EPBnCRFbNCE2tNK5fR6woAqzq jogbGVmdDsgdmVydGljYWwtYW loE446LHIijBouAsPktCazigQ g XDzcYDn0C1PdBojcxZW+PC90Y PRnBB62wWOwaYCzv0pdsDw7Zw JbWLFcWEY0jZtoBSmyg4ItXVN t K67pqLOuq2V3ADIsvXdfaQPjE uAogPJ3rN4aKRwwmiixs6mfpm vaFieys9jeef60vR94Z97oSEm p IAQuULIuMTVcVUYflCrbaw7ht G9wIi8+MTTkpFC1bHV2mO3mSS IqKdI2APhwM851FuGnqNRuPnx j s9ziy6nbkZz6FgR2TFHqtyQli OgaENJ0t0LrPc47N59kFBstQN XfLRErACYlWCMhpNcyxl3weN3 w Ii8+XSIlfXL1pCI7aE3jDnLrJ qQ6VJnrD584DxImdCBcOblhG5 9jV5KjiLS+WBQfCwx5KMRxcWg s WJ2tiBAfFQozHd0tPIX0AjVkF yChAGmkP8JmRBBmklyoyrppuD C4IAYdYVXxcG75Te0lpImbYNC w tIWVoS6qljusz2rfpkhqTeWfX UNzHQh1KYu6TXWeqEerUfFeHW H1WlK5QJF3nCRebO7rhSsyofp g mF4uZ4TtOGPngztxYk79gR9eF aUaDvQ2YNgaIqf+OP7RTSJPEZ IZXSDRRFNLHVRDGH1JGX53U0F k Brw7EMSlqKmvGX1ukNWwOJfdU t0xmBtbeZkuGH9eGISzpjoxNL AguL2nTTOctRPnxAtcPY6kHTD p tckft921UuWyOZV0QFYshCUeV 2GxsJ1dZkNkLCBtJBYsV9CjcM OxQAbhC565BEixWeR2KFFevdX p I2CbBVCpwPxfJrE3n6K6Pa3pG O3nMP8hKDXeDX38NX65xAAlb3 W2zJM2L7YmXRRwgjjkfhvxqTO 6 ESAwTTUbsU42uTZhNJckMm3mp 2O2o500HTGuQOAdeP53Ss9ikA qqHMDwgBRUlC1ugauuh4xmqma g MhGkZFArXKj2XJa0KMLkxRknS xHeGMP4QeM2OUN6bZEkvJ9ytW naqwifjV9yGxh+NjQgWWVhcnM 8 A9FuXlx4TJFjjIrqXX5xvCXfY DlcEc7kePghmSiiDD2qDNIulm qmZJPcgD3jSFGvaHVnaMqmIL7 w YERymnlvq349TuCqTWO8PDMtt TWqB0XcqQ3hIeYiYDBoFVRaH4 WdjBAqLYdbJ280GQipVcM2YAP l srGvB8IsWARbjRtxKeQ5j0X1Y x9JTX6BELG0Z7KzJyb0VXHdwS anCU8iuGPrDIxoMm0hlTcgsMf g UE8zUPYaseddOIAqmT1vDHBqa QNhbNlmJI2aKDZeqvldu999Yi DtAXX7OCZvtQCsQ8IxbS8tDyI j ONPbVJAaT8ObaEJkSQefD369G HahFdJ4ESQfpoYmS8NvNAZkzT biBmC9q4A1Pk6LBLneA3VrI2N y eTwvdGQ+UF72vv12W5QbWlxiZ yq4ETMxJSP2dSR4qA5zVEQuIQ yxv4U3hXX8Y2OydqDaxt2xp9e s OPVmZSibN68lkVFjl7G3EUYen GD7JCTlrHlyIfRlcV85Wrq+PG OzvAdbq5EsPmlye5wgl3fodGm 9 TtBbDBXhnrYhiMbnVXX4t5LnK u88D98qNIqwMRGlXOAfJVFkYF TvgHmtlp3ljU7hEc9+PGNvbCB 3 gEB3nL1yJfLxUdF3JDfuP280U cBgvEZqWrypx5jdt3eqjIb5Wo HnUDOehwThvIvaFKM4d2NpEh2 8 W2QzuKfet9AiMli2aw82qGAvt 9K6dTW0Z8XpQAGzajwglBKaeA hlDK4cYZAioblgMHAuaX6tTWX p K4j1ClKwBoQ2KJprV9YsoxA7M ELrjZVzYDHuoMOTvU2inrzcg9 hxroyhYdKcKIEmNGi4POh1NAP s tYpxLtQbKCG0CgW9JLE5kANcd D4lbPvggzslnE1uZsl+UGh5c2 lotWKeKA1lvJX9JN40NA34qTG g k3B0eZD8Z5XjQVKxngdeywzdr WL7KDJzQJPvuF94Vk3uaKahUe 8uLPDpZLE7PWMtcIRdG3CypS9 y IpUeQFKqRNWrP9XenHXiBDnrH 581VKvzUlR1RFOxkoNbV2EnOW PgkXylYzO1c7V0Vp8UQC35MT9 0 RH88cEJnk6I8nHD1S6YfPCPmm ojkkzrkaMD0LHMdGZLkjW57Pc 4mlBjgSk4tBZQxOZQ3JZMbhMT z F7AvnL1sKqOfRXWcIDRxS9Uvk ULkFScqK267KTllSfH0OBWwml AzT9VjBFWcjPwtXrI4v1M0Sk7 N Uk07SU28AO23xOKmy3A6oUF8J 6FuXKHdjheoyrdhdZQ0TGHeYE GrzM89Lj2pwDcqKv5yMBAwZXD 0 UUHrqKFqA4LtfV9eJaXkEEPzM JBwY6HkqNAhNZlqY695DLdzKs Z2EKJmyaSbK9ExCUNqkXeaMnZ 0 j5J4Ux0SZQgiqxt7L5BsIchms HI+LP32UKXjSF78pMIwaJZiy6 quxSg6XrTkYQHnKAB8hRttIDf i b3J (more content not included)... [facility] Coding Summary HTMLBase 64 ZyalqiyeEVq8xUg+PGhlYWQ+P C7UWDOhO51vyNQpqG6dR2HKWS lOSywgQVBQTElOSyIgbmFtZT1 kaXNjZXJu IC8+NE8hPMRkKwxcbXVeq7F8y JP6D87upp6vCQwxiOI0ZXYqZr Gnstkzh3mwaGp3SHvkLadnHvH t HQYuxT95NVJ3dJ47Mn46aCZpu IPoq5gkzRz5CnPcPTAsNGR9tK drALsfo5ThEIJhT28ixHFmd0X 6 RPHbiZcyuOUcScVdsMM8pS6yG Zxuiwlcd8mtwtnjRen5ov70cQ Siz9O9yEB6O0NloaI6DQWviBN g WmlrjFGKlW1zaokwb2yhmnwmT qBmCEPbAAm0VPn9JIEluFvsSj YsZP21CWU1JYQpriSdQ1YqDYX s fVxmOhM4r2N8Ln7NK6WPFmobD 1VNTUFSWTwvdGQ+WZ50xi26F6 CpVireAju9ZRYvTTL8rQC9wU9 n LSVuMNgex9Q8eRL4T1XgvtEhx r9lo6rsKENrIXuiS45uwWTwc4 Y0CCFcvLO1WRZjpOvwQsSwrU5 3 Oyc+ZUMoaVsrd6HtCqgzh3hiv 5sygOg2KctrUDMmyjOahFpyFR V6m2MtTb2zLTOtnDF0qXG7bE4 i JyZyJsB7YNqhM000FjJjfXFgQ xuiI24lI3KfgST+CQMsSzj5YQ DhxNxiNA3mI9IfGKZlgckqmSV m pMolIM8xKQWylvgtDDKgaP3wU IZrD9n9AtLlChN2YKqrG5NiHQ RfiagiIc61uU4rDtTsDxY0ZFm u S3AohcR1PTKqoNToTUhwXIX2X 98sj8W1DNHjUEKeMJU1gTN6oR 1hbGlnbjogbGVmdDsgdmVydGl j XTkcCSypE449NEHlxDrnWsSxR GluZyBEYXRlOiAgMDUvMDcvMj AyNTwvdGQ+CSLfYGZ2hBubATY n tTCyYNzkDl0xfYnpgGjwQF1lZ CDuvkfdLZEikW3pDMRvbRHwnY brRO0yHTLkrjqjs714BoJpYMY 0 JQYfpHHkT8ArjD3lHlNiVOOdR VXuW6HscWKcCDsmZ969WOzmJs G8RFElyhZfC3OyKDPnsWggDbB 0 s6Z5Dx2Vl7AausnpE5ZjqFMgC wPbZhfoVUp2O2EfZuevcMX+PC 25KNMxQK55POt1XZC5oKpwUAx i KAIfE6KvdC2tPsQeCOKvSPJdS yc+PHRhYmxlIHdpZHRoPScxMD GsBpQzfQqkGW5vOb5wADPdUQE v yWgazQNcXgGsn1ilZTWzPPctM R8phUzgF9PkoKA5LACcy2b1Ad 82F36pM3ZnxTL+LKVrzSY6bJE 0 vP0uGqZyLjT5CBjrC370PbZln LSwZlayq1otn7xoqEr0NlK2QL VykuQclEjfJNR0o1IdFs57B31 s IHdpZHRoPSIxNSUiIHZhbGlnb o7hcX1pAl2+MRYebMG5qDU9hA 9kWwJtHsW8PEcwG214YhKcfNI v Shoal3ffc6etwVd0UkGqIBVsj xFdoSleSHB9q1OsBj16U0PshT icw9LnYlq6tl65vTYxx0N6hXK 9 L5WdOZUnaeivrCSdtRiqQS3dH YVvpzodWXSgkV7mIYTmA0u4Jk MnBbV1UDtoR5VlfiN2FAAtsOH g JQEoqVDZrE4yckuth2sgvwklI rIqICNySPc9XOe6RHYisSdjJr CoVED2VhM0YXF5kKQtzK8pnIk n kcszyZ5tYdy+VHW5uNGvjFFGS Q0oCkurqCS+HCHoAXV2nCzaXW obHFAqyF6hEYWpQ7j2YmYkQaY 1 PWmuV5WgnbO0AHQnuRLgEHAwo UHAbU5nuzzdi6vnnewqXpJaSH YmQSf0WMr3MFDxlYmjDfVxGSW 0 GxZ3VLQ1yYWjkM3gqYzqdjcjq G9wOyc+NigqcXxwPSH3HQf1L9 MdYah8VDOqeBnjHT4hoSHjEMz u Wf2orQxqdVfeCV9uCEMfjkxmb 975QnVxk6llIEVpxRYxCLpqGM Y8I91yp9S3IZZzQZKtLIL2bBX 4 qZ5aaGnpxbnzaCJhcNscutAgd DwyVDmiPJmeN256IOEsbPytWp FaKTp9S2CpVtp9NJUovIahYX8 n xSBxFCuhQd1ttOjebRqfWE7jL UHfdhowu500XpBdc6kzCCFphX RxXLvmUMF6S08xu6Z4ESYxKQH w WGJ1aWQ8bN5ilHqvhcbmjNBid YyrlzCeeBgmWJwrDLvzK943CH AhkAxsLbOwpGf8M8YjMax9ASV z oMtnJJ8olXTdOGcaSv7orYwfi CueTU4cEWLdykjbb511GoNnv8 bjFQAnuXZiDOctFKN2D37ic6M 6 KPCbCWPpING9fWD1nK5pnGfvk jogbGVmdDsgdmVydGljYWwtYW znP805DIIouZnuTdFojWaktqM g EAcqXYs4B0ZrMbixpQM+PC90Y SHuKX46kJTnyNXii1tyfXi4Mk UfEPKnMGI5dFnnCEggj7EvHSH t Y58tfRJzl6I7RWXenUumdOSbI rOsyDS1aY3iLUdzboqru5ryuf teVhkro6olvo81bD71B41kOQr p UJJtOOUtXWSzBLPeaCrctw2ez G9wIi8+IFMemLA7aRN5tZ7wKJ YwOvZ7ZLpyH449XaMjeKExSle j j2wxq7rllYm2StU1IGZghgWlc LutEWS4j4WlSj33F29gGYlrRI DuWKPrBBWsRBHcaPmxkt7bxS0 w Ii8+QDGukPL8oHA7yH4pJbKuY gA6WXbkY498RyGnaOKxQrgyE8 5qB4OqtBC+CENgBks6GOFzkNn s NQ2sfIUlMXhvZa8oXUI9ThSpV aNiKWygT5NoUODxabwkkgqebW R4LWMyLKRohL37Kz5diNkhUDW w xYASfX6flwvuw1nuzsfbPuZeZ EPdXHw6IYz0BWSplWtvCoOfQJ D2FlN1SLF5hUQhcN2idXvzynw g lP8nY9QcUTWbvgsmZq25bZ1aF aJfRrI1HJpcLxh+WD9GZDKGXT ELKBXLRHEGKMXHDA7TYG95K5J k Rno2RAJgrXmcQM1fpUCzLWbuF q8nvVrtoZntNF6wIQEajwcbQV EusW1aHZCckOFqkFyrDO4zATU p kppiz345AtEoPRS7ARBovMNwA 1NmoD5tQmBaEYZbNDVjX3SdlU NoYXiiS469VBkjKeU0NJYtyeW p G2UjIWGyaDcuJlZ7a2J1To1jM X7hDV0gGZOmCH00VX48jTWzm8 Z0gHW0Z3EmAGFrzoqlexyxvOO 6 XIDvCGSveA42cCAxKRwcJt6io 5X2t919SGMnFSYpbE78Hb6pcA ptLYZspRQNcE6zlgtqu1etsgq g AfZrIKMiGUo4MBn4WHMyaNioH fXoXTI8XvZ2KTG1mAGvrR9zqL mzsmzzbR5tIle+NjQgWWVhcnM 8 D7SxDpo2BYXqdBwzVF4shBRgE CclAq0vyQjljWfbHY2rKLIyod qbZZJbvL5rACQklVHvvJjmMI8 w IVOxrakud927IuXjEWW8GFSce TEzB7LizE8xKhVcABOiDBPqC7 HnpYBuSVqfJ765TUddVjD5YMB l akZwU5NcWQCssRupXbY1u0L9I r6RVJ1MWLN7V2PdTby0SAVjoZ lfFQ9zqHImKXwmFh2jdEftsXs g JJ3nZPGxnqtmDWKczM7bXGWll ONuqEitZM2tOQEtgrrvm370Wb MfTIX1KHDlgFBkC8WdcQ9wZlP j EVUoNFSmJ7NpqWMvGRagJ326K UmfNaI8PLJrsfIqN7LyQOBldW dyEzD5c1P0Sg4PARkvY7WiF5T y eTwvdGQ+GI75ab56E0MfNzxwE wf0BEXtFKX7yQH3oO2cMKJlXM wbi5R9zGW5S8YsieNjwk4zw9g s SCJhPGojV83bgDOsg2N2BWUiv VV9YTCtmTaxXaCpoM57Pap+PG KroSkrf1UiHtooo8dcg3jskQt 9 TvJoCXRwzdTxdVltXBC2m0QfF o64M32tOBkdNXKyYFDsHLCsQQ KjlCmkcn0ybI4aWb5+PGNvbCB 3 tDJ5oA0cMeXtKwG2REneB953K iEftLBfHrkcm4wvs8rttYs6Yd QuGREefrIpkUukGCM6u4XfJb4 8 T3AboOroh9SoIjp0au39jUEwu 3X4kPA0F6KbRGOclqzveNBsnN nhKV8lQWGpusdrXQQeiG5rHVF p N6z7LqZfAnA0AEbwN1SrokY1Q BZgvHTcVSKkvZIOgQ4okisco6 ccpnhtZeOcMDTeBKw1KPc2TPG s uUehHpMbGBP3KwV9YBW7nLHxg G3piOvfawbyxV2aBtq+UGh5c2 ifoQRvST5pyOO1WR39YU05qFQ g s3O5mHM9Z1WpIEHcmttxnozzo LY7UOEjXJBqeK18Wg4jjEuxKj 4tQRDvXDZ3YKCzlUMrB9XyvK9 y JtRvXEHvCSJcV8NadEOxKOndU 626XKfuZnB5UORhcdBgV6IaDZ PaaVtoMbA2p4T0Ka9DJZ06XF4 0 BX59eNNrg5E4mBS2X7RvKOLgj plrsgfzzRR6PPFsLLLpmH67Wi 5ghChpVz6yVFHnEXJ8HXAltFS z D9TwbI5pVvDySUWhTHAoW6Rvr ZCbYOexQ319SMpdXuM0MUIdem HyE2NzJCYiuEgiZjT8o5P0Sx3 N Tn86QM63XW27sTRsb9H4fED8M 3VaOMDdmksqqggonDA6NWHhCS QytK66We5tdMnyUs0bHUXfFLE 0 KMOebBYrS9NplR6kFgCqANKaD PAvA5SrbMEgSZoeK443EEyzTz S5WYAemiTpS2YiCDBolTfpVeG 0 q4G4Tw6QPMeuxkc6A5SsQoizl HI+RG61QWHcBU98bVGlfYYyd9 femYb3HhRhMCGeNIP4yMhpESc i b3J (more content not included)... [facility] Consent Formson 06-20-2024 Consent Forms [id number]#[id number] [facility] Consultation/Specialist Note on 06-20-2024 Consultation/Spec ialist Note [id number]#[id number] F [facility] Outside Recordson 06-20-2024 Outside Records [id number]#[id number] [facility] Telemetry Stripson Telemetry Strips [id number]#[id number] F [facility] Anesthesia Noteon 06-17-2024 Anesthesia Note Patient: LESLI CLAY Age: 64 years Sex: FEMALE : 1960 Associated Diagnoses: None Author: Farooq Boggs MD Postoperative Information Post Operative Note: Operative Day. Anesthetic utilized: General. Health Status Allergies: Allergic Reactions (All) No known allergies Problem list: All Problems Hypertension / SNOMED CT 5949927565 / Confirmed Occasional tremors / SNOMED CT 54281189 / Confirmed Type 2 diabetes mellitus / SNOMED CT 555845476 / Confirmed Physical Examination Vital Signs (last 24 hrs) Last Charted Temp Temporal 36.6 DegC (JUNE 17 10:50) Heart Rate Monitored 84 bpm (JUNE 17 14:40) Resp Rate 20 br/min (JUNE 17 14:40) SBP H 170 mmHg (JUNE 17 14:40) DBP H 83 mmHg (JUNE 17 14:40) Review / Management Condition: Stable. Assessment Anesthetic outcome No anesthetic complications noted. Adequate pain relief. awake, alert, VSS, adequate hydration, Glucose adequately managed. No Complaint of nausea and vomiting. Plan Transfer/ Discharge: Patient can be discharged from PACU when criteria met. Condition good. [Electronically Signed on: 06/17/2024 14:58 EDT] Farooq Boggs MD [Verified on: 06/17/2024 14:58 EDT] Farooq Boggs MD [facility] Anesthesia Note Patient: LESLI CLAY Age: 64 years Sex: FEMALE : 1960 Associated Diagnoses: None Author: Farooq Boggs MD Preoperative Information Anesthesia history: Patient history: pt had breathing issues post op after back surgery in [place]. Family was unaware for several hours, but pt ended up in ICU overnight on bipap, No difficult intubation, No malignant hyperthermia. Family history: No malignant hyperthermia. Review of Systems Constitutional: Negative. Respiratory: Shortness of breath. Cardiovascular: No chest pain. Gastrointestinal: controlled GERD. Neurologic: Alert and oriented X4, Numbness, Tingling, tremor. Health Status Allergies: Allergic Reactions (All) No known allergies Current medications: Home Medications (13) Active acetaminophen-oxycodone 325 mg-7.5 mg oral tablet 1 tab(s), PRN, Oral, TID ARIPiprazole 15 mg oral tablet 15 mg = 1 tab(s), Oral, Daily atorvastatin 40 mg oral tablet 40 mg = 1 tab(s), Oral, Daily buPROPion 300 mg/24 hours (XL) oral tablet, extended release 300 mg = 1 tab(s), Oral, Daily hydrochlorothiazide-losar mcwilliams 12.5 mg-50 mg oral tablet 1 tab(s), Oral, Daily hydrOXYzine hydrochloride 25 mg oral tablet 25 mg = 1 tab(s), Oral, Daily metFORMIN 1000 mg oral tablet 1,000 mg = 1 tab(s), Oral, BID Metoprolol Tartrate 25 mg oral tablet 25 mg = 1 tab(s), Oral, BID nortriptyline 50 mg oral capsule 150 mg = 3 cap(s), Oral, TID Ozempic 8 mg/3 mL (2 mg dose) subcutaneous solution , Subcutaneous, qSatur pregabalin 100 mg oral capsule 100 mg = 1 cap(s), Oral, TID tiZANidine 4 mg oral capsule 4 mg = 1 cap(s), Oral, HS Tresiba 100 units/mL subcutaneous solution 44 unit(s), Subcutaneous, Daily Problem list: All Problems Hypertension / SNOMED CT 7083705515 / Confirmed Occasional tremors / SNOMED CT 85160971 / Confirmed Type 2 diabetes mellitus / SNOMED CT 048586859 / Confirmed Histories Family History: No family history items have been selected or recorded. Procedure history: Arthroscopy of shoulder ([id number]) on 06/17/2024 at 64 Years. Comments: 06/17/2024 13:21 Marylin Seymour RN Right Neck ([id number]). Comments: 06/01/2024 12:04 Diane Mcgowan RN neck surgery Complete repair of rotator cuff ([id number]). Comments: 06/01/2024 12:04 Diane Mcgowan RN bilateral shoulders Triggering of finger ([id number]). Comments: 06/01/2024 12:05 Diane Mcgowan RN bilateral hands Back ([id number]). Comments: 06/01/2024 12:03 Diane Mcgowan RN back surgery Arthroplasty of knee ([id number]). Comments: 06/01/2024 12:05 Diane Mcgowan RN bilateral knees section ([id number]). Cardiac catheterization ([id number]). H/O: hysterectomy ([id number]). Social History Electronic Cigarette/Vaping Assessment Electronic Cigarette Use: Never. Alcohol Assessment Use: Never. Tobacco Assessment Former tobacco user Tobacco Use:. Substance Abuse Assessment Substance use: Never. . Social & Psychosocial Habits Alcohol 06/01/2024 Alcohol Use: Never Substance Use 06/01/2024 Substance use: Never Tobacco 06/01/2024 Smoking tobacco use: Former tobacco user Electronic Cigarette/Vaping 06/01/2024 Electronic Cigarette Use: Never . Physical Examination Vital Signs (last 24 hrs) Last Charted Temp Temporal 36.6 DegC (JUNE 17 10:50) Heart Rate Peripheral 80 bpm (JUNE 17 12:55) Resp Rate 16 br/min (JUNE 17 12:55) SBP C 187mmHg (JUNE 17 12:55) DBP H 92 mmHg (JUNE 17 12:55) Airway: Mallampati classification: III (soft palate, base of uvula visible). Temporomandibular joint mobility: Good. Mouth: Adequate opening, Tongue ( dry mucosa ), Teeth ( unremarkable ). Neck: Supple, Full range of motion. Respiratory: Lungs are clear to auscultation, Respirations are non-labored, Breath sounds are equal, diminished bilaterally. Cardiovascular: Normal rate, Regular rhythm. Neurologic: Alert, Oriented. Review / Management Laboratory Results Plan [employer] [place] [employer] (ASA) physical status classification: Class III. Anesthetic Preoperative Plan Anesthesia: General. , Regional (Interscalene Block, for post op pain control per surgeon request). Anesthetic plan, risks, benefits, and alternatives discussed with the patient and/or family. Patient verbalized understanding. Informed consent was given. Consent was signed by the patient. [Electronically Signed on: 06/17/2024 13:40 EDT] Fraooq Boggs MD [Verified on: 06/17/2024 13:40 EDT] Farooq Boggs MD [facility] Inpatient Patient Summaryon 06-17-2024 [place]patient [place] [address] Patient Discharge Instructions Name: UBALDOAlliLESLI : 1960 Patient Address: [address] [place] [address] Primary Care Provider: Name: JENNIFER CABRERA After you are discharged if you find you have any questions, please, call [phone] ext [phone] to speak to a nurse. Discharge Diagnosis: Complete rotator cuff tear or rupture of right shoulder, not specified as traumatic Prescription Information: If you have been given a prescription for narcotics, seek immediate medical attention if you have any difficulty breathing or any sudden status changes such as confusion and sleepiness. If you or anyone you know is experiencing suicidal thoughts, mental health, alcohol and/or drug addiction problems; contact the [facility] 08/09 Crisis Hotline -Text 4HOPE to 058316. If you received any narcotics, sedation, or any other medication that causes drowsiness for the next 24 hours, unless otherwise directed: ? Do not drive a car. ? Do not operate machinery such as power tools, lawn mowers, drills, sewing machines, or stoves ? Avoid alcoholic beverages and drugs for allergies, nerves, or sleep ? Do not make important personal or business decisions or sign any legal documents [facility] would like to thank you for allowing us to assist you with your healthcare needs. The following includes patient education materials and information regarding your injury/illness. LESLI CLYA has been given the following list of follow-up instructions, prescriptions, and patient education materials: Follow-up Instructions With: Address: When: Lauren Torres [address] [place] [address] Business (1) 07/01/2024 10:00 AM Medications During the course of your visit, your medication list was updated with the most current information. The details of those changes are reflected below: Medications to Continue That Have Not Changed Other Medications acetaminophen-oxycodone (acetaminophen-oxycodone 325 mg-7.5 mg oral tablet) 1 tab(s) Oral (given by mouth) 3 times per day as needed as needed for pain. ARIPiprazole (ARIPiprazole 15 mg oral tablet) 1 tab(s) Oral (given by mouth) every day. atorvastatin (atorvastatin 40 mg oral tablet) 1 tab(s) Oral (given by mouth) every day. buPROPion (buPROPion 300 mg/24 hours (XL) oral tablet, extended release) 1 tab(s) Oral (given by mouth) every day. hydrochlorothiazide-losar mcwilliams (hydrochlorothiazide-losa rtan 12.5 mg-50 mg oral tablet) 1 tab(s) Oral (given by mouth) every day. hydrOXYzine (hydrOXYzine hydrochloride 25 mg oral tablet) 1 tab(s) Oral (given by mouth) every day. insulin degludec (Tresiba 100 units/mL subcutaneous solution) 44 unit(s) Subcutaneous (under the skin) every day. metFORMIN (metFORMIN 1000 mg oral tablet) 1 tab(s) Oral (given by mouth) 2 times per day. metoprolol (Metoprolol Tartrate 25 mg oral tablet) 1 tab(s) Oral (given by mouth) 2 times per day. nortriptyline (nortriptyline 50 mg oral capsule) 3 cap(s) Oral (given by mouth) 3 times per day. pregabalin (pregabalin 100 mg oral capsule) 1 cap(s) Oral (given by mouth) 3 times per day. semaglutide (Ozempic 8 mg/3 mL (2 mg dose) subcutaneous solution) Subcutaneous (under the skin) Every Thursday. INJECT 2 MG UNDER THE SKIN ONE DAY A WEEK EVERY WEEK. tiZANidine (tiZANidine 4 mg oral capsule) 1 cap(s) Oral (given by mouth) At bedtime. It is important to always keep an active list of medications available so that you can share with other providers and manage your medications appropriately. As an additional courtesy, we are also providing you with your final active medications list that you can keep with you. acetaminophen-oxycodone (acetaminophen-oxycodone 325 mg-7.5 mg oral tablet) 1 tab(s) Oral (given by mouth) 3 times per day as needed as needed for pain. ARIPiprazole (ARIPiprazole 15 mg oral tablet) 1 tab(s) Oral (given by mouth) every day. atorvastatin (atorvastatin 40 mg oral tablet) 1 tab(s) Oral (given by mouth) every day. buPROPion (buPROPion 300 mg/24 hours (XL) oral tablet, extended release) 1 tab(s) Oral (given by mouth) every day. hydrochlorothiazide-losar mcwilliams (hydrochlorothiazide-losa rtan 12.5 mg-50 mg oral tablet) 1 tab(s) Oral (given by mouth) every day. hydrOXYzine (hydrOXYzine hydrochloride 25 mg oral tablet) 1 tab(s) Oral (given by mouth) every day. insulin degludec (Tresiba 100 units/mL subcutaneous solution) 44 unit(s) Subcutaneous (under the skin) every day. metFORMIN (metFORMIN 1000 mg oral tablet) 1 tab(s) Oral (given by mouth) 2 times per day. metoprolol (Metoprolol Tartrate 25 mg oral tablet) 1 tab(s) Oral (given by mouth) 2 times per day. nortriptyline (nortriptyline 50 mg oral capsule) 3 cap(s) Oral (given by mouth) 3 times per day. pregabalin (pregabalin 100 mg oral capsule) 1 c (more content not included)... [facility] Intraoperative [facility] MAGR Intra-Op Record Summary Primary Physician: RICA RODRIGUEZ DO Finalized Date/Time: 06/17/24 14:39:23 Pt. Name: PHILLY LESLI Huffman/Sex: 1960 FEMALE Med Rec #: [id number] Physician: RICA RODRIGUEZ DO Financial #: [id number] Pt. Type: D Room/Bed: / Admit/Disch: 06/17/24 10:32:36 - Institution: Case Times MAGR Entry 1 Patient In Room Time 06/17/24 13:02:00 Out Room Time 06/17/24 14:34:00 Anesthesia Start Time 06/17/24 13:02:00 Stop Time 06/17/24 14:38:00 Surgery Start Time 06/17/24 13:39:00 Stop Time 06/17/24 14:23:00 Last Modified By: Mary Alice Botello RN 06/17/24 14:39:17 Case Attendance MAGR Entry 1 Entry 2 Entry 3 Case Attendee RICA RODRIGUEZ Robert M MD Kokinda, Diane RN Role Performed Surgeon - Primary Anesthesiologist of Scleroscope Tester Record Time In 06/17/24 13:02:00 06/17/24 13:02:00 06/17/24 13:02:00 Time Out 06/17/24 14:15:00 06/17/24 14:34:00 06/17/24 14:34:00 Procedure Arthroscopy Arthroscopy Arthroscopy Shoulder(Right) Shoulder(Right) Shoulder(Right) Last Modified By: Mary Alice Botello RN, Diane RN Kokinda, Diane RN 06/17/24 14:35:27 06/17/24 14:35:27 06/17/24 14:35:27 Entry 4 Entry 5 Entry 6 Case Attendee Yamilet Rodriguez CST, Brittany E CSFA Radloff, Leigh-Ann CSFA CST CST Role Performed Scrub Personnel Sewing Machine Operator Paper Bags Scrub Personnel Time In 06/17/24 13:02:00 06/17/24 13:02:00 06/17/24 13:02:00 Time Out 06/17/24 14:34:00 06/17/24 14:34:00 06/17/24 14:34:00 Procedure Arthroscopy Arthroscopy Arthroscopy Shoulder(Right) Shoulder(Right) Shoulder(Right) Last Modified By: Mary Alice Botello RN, Diane RN Kokinda, Diane RN 06/17/24 14:35:27 06/17/24 14:35:27 06/17/24 14:35:27 General Comments: MANOJ JACKSONARTHREX REP Surgical Procedures MAGR Pre-Care Text: A.20 Verifies operative procedure, surgical site, and laterality Im.150 Develops individualized plan of care Entry 1 Procedure Arthroscopy Shoulder Primary Procedure Yes Primary Surgeon RICA RODRIGUEZ DO Modifiers Right Surgeon Comment RIGHT SHOULDER Start 06/17/24 13:39:00 ARTHROSCOPY WITH BICEP TENODESIS Stop 06/17/24 14:23:00 Anesthesia Type General Surgical Service Orthopedics Wound Class Clean Technique Details Closure Technique Primary Entire procedure No was performed via laparoscope or robotic assistance Last Modified By: Mary Alice Botello RN 06/17/24 14:35:29 Post-Care Text: O.730 The patient's care is consistent with the individualized perioperative plan of care General Case Data MAGR Pre-Care Text: A.350.1 Classifies surgical wound Entry 1 Case Information OR MAGR OR 05 Case Level Level 4 Wound Class Clean Specialty Orthopedics ASA Class 3 Diagnosis Preop Diagnosis INTERNAL DERANGEMENT Postop Same As Preop No RIGHT SHOULDER Postop Diagnosis INTERNAL DERANGEMENT RIGHT SHOULDER WITH BICEP TENODESIS Blunt or No Is the procedure No penetrating injury considered occured prior to Emergent/Urgent? the start of the procedure: Last Modified By: Mary Alice Botello RN 06/17/24 14:17:24 Post-Care Text: O.760 Patient receives consistent and comparable care regardless of the setting Time Out MAGR Entry 1 Procedure(s) Arthroscopy Shoulder(Right) Time Out Checklist Verifications Team Introductions Yes Confirmed Identity, Yes Completed Procedure, Incision Site, and Consent(s) Presence of Yes Site Verification, Yes Necessary Site Marking, Site Procedural Marking Equipment, Devices, Alternative, and/or and Implants Site Marking Verified Exception in Accordance with Facility Policy Anesthesia Review Antibiotic Received Yes All Anesthesia Yes Within an Concerns Addressed Appropriate Time Interval Prior to Surgical Incision Surgeon Review Anticipated Blood Yes Expected Case Yes Loss Risk Addressed Duration Addressed Critical and Yes Non-Routine Steps to be Performed Addressed Nurse Review Equipment Yes Fire Risk Yes Checks/Concerns Assessment Addressed Completed and Interventions Performed Diagnostic and Yes Sterilization n/a Radiological Test Concerns Addressed Results Displayed are Appropriate and Labeled Other Concerns n/a Addressed Time Out Yamilet Rodriguez BANDOLEER STRAIGHTENER STAMPER, Time Out Time 06/17/24 13:37:00 Participants Mary Alice Botello RN, Farooq Boggs MD, Kaya Ty BANDOLEER STRAIGHTENER STAMPER, RICA RODRIGUEZ DO, Tuyet Carrasquillo CSFA BANDOLEER STRAIGHTENER STAMPER Last Modified By: Mary Alice Botello RN 06/17/24 13:49:56 Patient Positioning MAGR Pre-Care Text: A.280 Identifies baseline musculoskeletal status Im.40 Positions the patient Im.80 Applies safety devices Entry 1 Procedure Arthroscopy Body Position Supine Shoulder(Right) Left Arm Position Extended on padded arm Right Arm Position Extended on padded arm board board Left Leg Position Extended Right Leg Position Extended Feet Uncrossed? Yes Press Points Checked Yes Positioning De (more content not included)... [facility] MAGR Intraoperative Record MAGR Intra-Op Record Summary Primary Physician: Finalized Date/Time: 06/17/24 13:02:44 Pt. Name: LESLI CLAY/Sex: 1960 FEMALE Med Rec #: [id number] Physician: RICA RODRIGUEZ DO Financial #: [id number] Pt. Type: D Room/Bed: / Admit/Disch: 06/17/24 10:32:36 - Institution: Case Times MAGR Entry 1 Patient In Room Time 06/17/24 12:36:00 Out Room Time 06/17/24 13:00:00 Anesthesia Start Time 06/17/24 12:39:00 Stop Time 06/17/24 13:00:00 Surgery Start Time 06/17/24 12:46:00 Stop Time 06/17/24 12:58:00 Last Modified By: Marylin Heredia RN 06/17/24 13:01:01 Case Attendance MAGR Entry 1 Entry 2 Entry 3 Case Attendee Farooq Boggs MD, Margaret RN Draper, Lora RN Role Performed Anesthesiologist of Scleroscope Tester Scleroscope Tester Record Time In 06/17/24 12:35:00 06/17/24 12:34:00 06/17/24 12:34:00 Time Out 06/17/24 13:00:00 06/17/24 13:00:00 06/17/24 13:00:00 Procedure Interscalene Interscalene Interscalene Block(Right) Block(Right) Block(Right) Last Modified By: Marylin Heredia RN, Lora RN Draper, Lora RN 06/17/24 13:01:04 06/17/24 13:01:04 06/17/24 13:01:04 Surgical Procedures MAGR Pre-Care Text: A.20 Verifies operative procedure, surgical site, and laterality Im.150 Develops individualized plan of care Entry 1 Procedure Interscalene Block Primary Procedure Yes Primary Surgeon Farooq Boggs MD Modifiers Right Surgeon Comment SCALENE BLOCK PRIOR TO Start 06/17/24 12:46:00 RIGHT SHOULDER ARTHROSCOPY Stop 06/17/24 12:58:00 Anesthesia Type Regional Block Surgical Service Anesthesia Wound Class Clean Technique Details Closure Technique N/A Entire procedure No was performed via laparoscope or robotic assistance Last Modified By: Marylin Heredia RN 06/17/24 13:01:06 Post-Care Text: O.730 The patient's care is consistent with the individualized perioperative plan of care General Comments: Unable to print ultrasound pictures General Case Data MAGR Pre-Care Text: A.350.1 Classifies surgical wound Entry 1 Case Information OR MAGR Proc Room Case Level None Wound Class Clean Specialty Anesthesia ASA Class 3 Diagnosis Preop Diagnosis SCALENE BLOCK PRIOR TO Postop Same As Preop Yes RIGHT SHOULDER ARTHROSCOPY Postop Diagnosis SCALENE BLOCK PRIOR TO RIGHT SHOULDER ARTHROSCOPY Blunt or No Is the procedure No penetrating injury considered occured prior to Emergent/Urgent? the start of the procedure: Last Modified By: Marylin Heredia RN 06/17/24 12:41:18 Post-Care Text: O.760 Patient receives consistent and comparable care regardless of the setting Time Out MAGR Entry 1 Procedure(s) Interscalene Block(Right) Time Out Checklist Verifications Team Introductions Yes Confirmed Identity, Yes Completed Procedure, Incision Site, and Consent(s) Presence of Yes Site Verification, Yes Necessary Site Marking, Site Procedural Marking Equipment, Devices, Alternative, and/or and Implants Site Marking Verified Exception in Accordance with Facility Policy Anesthesia Review Antibiotic Received n/a All Anesthesia Yes Within an Concerns Addressed Appropriate Time Interval Prior to Surgical Incision Surgeon Review Anticipated Blood Yes Expected Case Yes Loss Risk Addressed Duration Addressed Critical and Yes Non-Routine Steps to be Performed Addressed Nurse Review Equipment Yes Fire Risk Yes Checks/Concerns Assessment Addressed Completed and Interventions Performed Diagnostic and Yes Sterilization Yes Radiological Test Concerns Addressed Results Displayed are Appropriate and Labeled Other Concerns Yes Addressed Time Out Farooq Boggs MD, Time Out Time 06/17/24 12:36:00 Participants Negrita Resendez RN, Marylin Heredia RN Last Modified By: Marylin Heredia RN 06/17/24 12:52:55 Patient Positioning MAGR Pre-Care Text: A.280 Identifies baseline musculoskeletal status Im.40 Positions the patient Im.80 Applies safety devices Entry 1 Procedure Interscalene Body Position Supine Block(Right) Left Arm Position Resting at Side Right Arm Position Resting at Side Left Leg Position Extended Right Leg Position Extended Feet Uncrossed? Yes Press Points Checked Yes Outcome Met (O.80) Yes Last Modified By: Marylin Heredia RN 06/17/24 12:42:33 Post-Care Text: E.290 Evaluates musculoskeletal status O.80 Patient is free from signs and symptoms of injury related to positioning Skin Prep MAGR Pre-Care Text: A.30 Verifies allergies Im.270 Performs skin preparation Im.270.1 Implements protective measures to prevent skin and tissue injury due to chemical sources Entry 1 Skin Prep Syntegrity Prep Agents (Im.270) Chlorhexidine Gluconate Prep By Farooq Boggs MD and Alcohol Prep Area (Im.270) Shoulder, Neck Prep Area Details Right Skin Prep Agent Dry Yes Without Pooling Hair Removal Syntegrity Hair Removal Methods No hair removal performed (more content not included)... [facility] Record [facility] sophia Primary Physician: RICA RODRIGUEZ DO Finalized Date/Time: 06/17/24 15:24:17 Pt. Name: LESLI CLAY/Sex: 1960 FEMALE Med Rec #: [id number] Physician: RICA RODRIGUEZ DO Financial #: [id number] Pt. Type: D Room/Bed: / Admit/Disch: 06/17/24 10:32:36 - Institution: PACU Case Times MAGR Entry 1 In PACU I 06/17/24 14:35:00 Discharge from PACU 06/17/24 15:24:00 I Last Modified By: Marylin Heredia RN 06/17/24 15:24:03 Finalized By: Marylin Heredia RN Document Signatures Signed By: Marylin Heredia RN 06/17/24 15:24 [facility] MAGR Postoperative Recordon 06-17-2024 MAGR Postoperative Record MAGR Phase II Record Summary Primary Physician: RICA RODRIGUEZ DO Finalized Date/Time: 06/17/24 16:57:02 Pt. Name: CIELODUSTYJIANAlliLESLI./Sex: 1960 FEMALE Med Rec #: [id number] Physician: RICA RODRIGUEZ DO Financial #: [id number] Pt. Type: D Room/Bed: / Admit/Disch: 06/17/24 10:32:36 - Institution: Phase II Case Times MAGR Pre-Care Text: Patient is free from s/s of injury. Patient remains free from compromised physical state related to surgery or anesthesia. Patient comfort maintained. Patient/family verbalize understanding of discharge instructions. Entry 1 In PACU II 06/17/24 15:29:00 Discharge from PACU 06/17/24 16:43:00 II Last Modified By: Marylin Heredia RN 06/17/24 16:57:01 Post-Care Text: The patient remains free from s/s of injury. Patient's vital signs stable, circulation maintained, return to preop mental and physical status, opsite/dressing intact, minimal or absent nausea and vomiting, tolerates po intake. Patient verbalizes adequate pain control. Patient/family express understanding of discharge instructions. Finalized By: Marylin Heredia RN Document Signatures Signed By: Marylin Heredia RN 06/17/24 16:57 [facility] MAGR Preoperative Recordon 0 06-17-2024 MAGR Preoperative Record MAGR Pre-Op Record Summary Primary Physician: RICA RODRIGUEZ DO Finalized Date/Time: 06/17/24 13:03:22 Pt. Name: LESLI CLAY /Sex: 1960 FEMALE Med Rec #: [id number] Physician: RICA RODRIGUEZ DO Financial #: [id number] Pt. Type: D Room/Bed: / Admit/Disch: 06/17/24 10:32:36 - Institution: Pre-Op Case Times MAGR Pre-Care Text: Patient will be optimally prepared for surgery. Patient is free from s/s of injury. Provide information to patient/family related to plan of care. Verify patient allergies. Confirm identity and verify consent before the operative or invasive procedure. Entry 1 Patient Arrival Time 06/17/24 10:40:00 Preop Departure 06/17/24 13:00:00 Last Modified By: Marylin Heredia RN 06/17/24 13:03:17 Post-Care Text: Patient is prepared mentally and physically and is ready for surgery. The patient remains free from s/s of injury. Patient/family express understanding of plan of care and participate in decisions affecting his or her perioperrative plan of care. Allergies documented appropriately. Patient identifiers and consent correct. General Comments: Patient to PSW ambulatory. Patient denies chest pain, cold, flu like symptoms. Patient denies pacer/defib and sleep apnea. Patient is diabetic. Patient verbalizes understanding of post op orders and instructions. Finalized By: Marylin Heredia RN Document Signatures Signed By: Marylin Heredia RN 06/17/24 13:03 [facility] POCT Glucose Levelon 025 Glucose [Mass/Vol] 156 mg/dL High [address] [place] [address] Comment on above: Result Comment: OPR_ ID=[email or web address],TGC FLAG = False,Meter:[id number] [employer] Supervisor:2004 Dianne Houser Performed By: #### 4 [id number] ####[facility] (DEFAULT)[address] [place] [address]07 Glucose [Mass/Vol] 170 mg/dL High [address] [place] [address] Comment on above: Result Comment: OPR_ ID=[email or web address],TGC FLAG = False,Meter:[id number] [employer] Supervisor:2004 Dianne Houser Performed By: #### 4 [id number] ####[facility] (DEFAULT)[address] [place] [address] Patient Handouton 06-17-2024 Patient Handout Outpatient Shoulder Discharge Instructions 1.) For the next 24 hours, do not drink any alcoholic beverages, drive a motor vehicle, operate machinery or power tools, make any important decisions or sign important papers. 2.) Rest at home with moderate activity as tolerated for at least 24 hours. 3.) You may feel dizzy, lightheaded or sleepy following surgery. Please, have someone with you for the rest of the day and during the night. 4.) You may eat when you prefer, but it is usually best to start with liquids and gradually work up to solid foods. 5.) If you experience persistent nausea or vomiting, pain not controlled with your pain medicine and ice, bleeding that you feel is excessive, swelling or fever, please call Dr. Rodriguez at [phone]. 6.) Keep dressings in place, clean and dry until 06/21. 7.) On 06/21, remove the dressings, shower and cover the incision with band aids. 8.) Flex and extend elbow 15 times twice a day starting tomorrow. 9.) Use the sling continuously except to bathe. 10.) DO NOT LIFT ARM AWAY FROM SIDE!! 11.) Use Ice as needed to help with pain control. 12.) Proceed immediately to the emergency room for chest pain or shortness of breath 13.) If you have any problems or concerns, please call the office at [phone] or [phone] Normal [facility] Progress Note - Nurseon 05-0 Progress Note - Nurse pre-op call made to pt. pt states understanding of arrival time of 1030 on 06/17/24 and NPO after MN. [Electronically Signed on: 06/16/2024 09:12 EDT] Rowena Uribe RN [Verified on: 06/16/2024 09:12 EDT] Rony NGUYEN, Rowena L [facility] Progress Note - Nurseon - Progress Note - Nurse Dr Wren reviews pt chart and clearance from PCP. Dr Wren states that pt will have to have acceptable BP DOS to proceed with surgery. [Electronically Signed on: 06/15/2024 12:46 EDT] Diane Smith RN [Verified on: 06/15/2024 12:46 EDT] Diane Smith RN [facility] Coding Summaryon 06-07-2024 Coding Summary HTMLBase 64 WobhhhpmIKv2sEq+PGhlYWQ+P O9UETPdC15dmNAawZ3bZ2LCMC lOSywgQVBQTElOSyIgbmFtZT1 kaXNjZXJu IC8+XB5yMXZjKycsjYLze4P5m XH0P13yff1uACjmcAF5FLRcDc Efbfvaq5ntkZw0BZtiJjosPzG t YZAvgT97KWD6uP33Ux33gDDee RHoh6bdzJk3BgVgBDKcTFF9yL fuEWlrx0GoKWErP28akINai7O 6 RQUmhHkpxKQzRnSyjUB4rP7sM Vjimojyk2wuzhpfPme5on54wQ Okv1T0gIA1Q9GgslU7TGHkeYK g QkofiGGYcC8youczh7eyraicQ gXnKWSpYBb7NQr8XHOnlWloGs PxVQ62WVP5DVEmlyXpK7GnBOT s nIioHiR5r5O1Wg6LR9CUVdrtA 1VNTUFSWTwvdGQ+GF46jh74C6 IyJptwKfm5ISUwVSH2bAE4gH9 n IVEqIYcum0A0kMC3G7UfnnEwe b0nv3cwPYVzJXkdT87xxIByu5 X8JUEfmFV8JRTzpKjaUkJxbC0 3 Oyc+KOAvjNmqt0UnNykqc4vuw 3bocJh2BlxjVWYxaiFszRsaJU G1q5WwVj1lMTLlwYF2zJY2cD1 i CuBwTqJ6AUavQ520NiCozOKuZ dnjN33pQ4EmcMR+HEUmPsv6BU DidJigJX8tF4XxXLJdcxfhnBW m nQfuFE1kKPEhrarpJFObuY1pD CHfH1p5AyZaLhO7KEwlJ1LtLH LdzuroAs85iH4bLzUjLeZ6CYt u S6GkmwV7RHBcjTTqRPlxSJZ7C 17fn0B5MGNyZKIsNYW0oKW0zY 1hbGlnbjogbGVmdDsgdmVydGl j ALctWLvjK611NZUygYerPzFrP GluZyBEYXRlOiAgMDQvMjIvMj AyNTwvdGQ+GJEgZXT9oGpbNMK n zFUvFPnqPl1wdQbepNmrOE4rA MHxtyneOCUgcN9jZOQlvFYnnF moTO8nXFNlgfjkq216UoCrSAT 0 VDVvyQRoZ8HrgY6cCsFoIGHpK SKeC0FjzRSrVOtgP593RYksCj U1KRXiekOmP5WxTBUadWlcSiW 0 h2A4Op2Qj5VcaijoR8UeuVQfH wRvRxbzKXa1P6XtTlfbcRC+PC 36KGRlCX35KVm0LEQ2rLikMVp i EIXmU9AnmZ7fDmArNJKlEOJlW yc+PHRhYmxlIHdpZHRoPScxMD WpVcSqkDhtDJ8xQn5xLQYaGCE v bEdbsDItAfGhg8fvVBEkHIlcK V2jnLxcV0WjoCV6SHVqu1x6Og 68D35zV5SpbWW+IUNswIR7tML 0 yO5bIjRaTsB7AFvlG841TvGon SVuZiqev6egj0banQj9VcC9VY VtacIcdWpcVKM0n2MfTt28I83 s IHdpZHRoPSIxNSUiIHZhbGlnb h5ngB5bUz7+WDGcjLX3aXI3pH 8lMnTlFcL7LEabF467CnXtpYY v Wjaez0hot2oqrBh1JrZiRPUxj aGypWugRTU5h8TiWm41P9YqlB trs7VxZzo8tj02rPQjo1E7gHD 9 N1ArCFFhphclpOSvlAztJL0hW TXhdzekTTAxyS1sVZUoU1u9Gi TdEhU9YWcjQ4UfxcC0WRHjnTK g KSWrvZVAdR4wyajgu5vbzztmR jLbNLZlIIm1CSy8KQPpsKzoXr LrUEU2PhE4QSE3lNGqmN8wbCb n gcuwoO2rAub+JSU0wELflJPYJ V4fZdmpmWY+GTWtINJ1sTnlON vkXTGfqJ9dGSYuQ3l5IiBjQuN 1 DFboL3CmnyV6MZPlwXZuKDYoc TLSkJ4hxtgmo2pgizsdNpHyWV RgELq2UFd7QRStuVncOkQlVWJ 0 JdI2RLN1iJVngV8exNpabphjh G9wOyc+MiwfdSmpRDM8TDt7I2 QdYks3MFRrtVltJD2lhMUhAFt u Bl6blEulfGcnZB2lDJCbujriu 392GeYbx0lgQIBkvKAjDUpxVJ L1G09de1B0DSOpGTVkESZ3qHU 4 zP8pyEywbjcraXJdoCcfdiRwz DfeXSobLOjqU503UCZfgTnpSo NsBNx1S1QfZux9WMZwtTrnAV2 n vLUqJCbuJf7pkZveeXsdIM2aZ LEeugwgw425CiCzp2dcOTDekW NmQHkmOTT5T02nc4S1EXXrKTE w VZY7cCF4lZ7moIvphapqxNQrq LttraKjdPlmSFvyBBwwT446AM RkpQfqZyZbpKj9I5MyMbk0AQV z kCpsHS4hiRGvQNxsHw6hgBfxa QseMV3lSXPsamsqh308UqMjx7 ukFXRbwBUcTQovKNH9E09ns7A 6 JVLiFLKdTXE9lZO7mO3kbKgdb jogbGVmdDsgdmVydGljYWwtYW eiA881HMZouFwnZjDeiVwtkqV g DQgsWZs6G7SbOtnfnSH+PC90Y COxFU47aKPafNJhb0jgxNx2Ld OmQGOoIST6aHvjFBdvl1McRJR t U89kbZIlq3A7ZRMfpWfpdRLsQ nEblPP8yH3tAXmwgdbcu3hqqp yhVsbeg9aost28hL64U17gGMf p DRGeNMCvKLTaNHFbbAlrgs4jd G9wIi8+JBHmxHF6rEF9gJ8tWQ BoTyF3FNaaJ147WdQkaPXqNlh j j3qao7ccgGj5LsA9SZKqehLow CpsAVG4g8QbBa11C15jMOslKV UzHRKcHTSrTMPpaNggqq4yuA9 w Ii8+WMZwfKD8hVN5nA3cWvZxZ tN5DQivD137LmCofSEnEayxH5 2kN2MkxZJ+HRYmHzu7FNKqbXa s LT4xmGEaKSzxMv4oUGU3FgDwD cKqNCfwU6WdIVIjariszteueT K3TJYgYWJwyF99Sw6dtSlsSKR w bHZOcD7aooprj3szejqhXfNrP HBjBHq5GQo3MACokGmjTmFtGD F8RxN4QUG4fVKzjK9drJgzxff g zX4kP6IyEWYkrbbrLo32aF0cX aSpHqT0XRjjHhp+UR1XHMPVGT VONCKVKRXYUSQUOU6BTZ64M1P k Dta5MPTxjYgfBJ4xoFZjJPjvD q7fhHvluZjyZM9zGABvkzzsND PmcV3yOLNnjYHxmVsjYU5uORU p xytuc975UpVmTCW3FAOlzVIwT 7NnoY1vQjDsCXQcNFLyI3XimS DeYRvsC586LVlzPaX7WHAewhQ p U0KhCHEzyGcoJoI9b2Q0Et1mV R7aSF8wBLNvQC07CA48oSXjj4 O3bFW6Q5DoMPEbopixjgmlcUT 6 UGLyAPSrcQ86rCIgICvgIo8fb 5D3n057FKYwVOOnvH43Mb1rrU qzCXHvsANNiR8eemrua6wqgbj g NdCdHGXsHIq7CXu0WAZkxAbpP nQoRGS3DmO2AIN2zCPfuM0qkL ezaryfpP3kJxn+NjQgWWVhcnM 8 P6JjCwy3EHYmtAafVF3soDBcD PkiQq4jkZewjZfaFC1iDHDenu suJOBlmR5fYAOteFCedZqnRN0 w QPKwdwbml276EfKdHCM9HQLwf AJiW3BqhS5yWjEaAOLrMLSiZ6 EfyCVwJFhrI909SXipFaJ5YCF l cyQaP2VrEJYyuSzhCgN6g9B0Y o3CJL3XWOQ5G9UaPln7PGFhaS dvYO3piOMbAIuzXk5boTuhgBu g IL3uOHHbiinxBRPzbD2zZSMnn VCrwOjpTJ3lNZCnlphoy906Re EgTTG9NLBdlEXiJ7BjuL4qQaP j QOVwPQPoS6TspBAmCKjoG973Q YudNxU5ZJDeedIgD2HlWRKlmZ xuSeA6t0K8Zt9NCJihlKY+PC9 0 ab93F8AjPbbmZbv0FFQmUOA9g QG3jT1mPOWvOTmiy7N3pOJ0Q0 LnnvDafq5qe9ncHOIxVMsbG12 s mOSmp3S4LOFreGS0FXFumZtfW qXchA99Vnw+HZHqvRscd2YbWc jef2ovv8epdPs2RlAeHFGthuF s oRxuDLZ0o3JiYt93V58tGXvrC RKsCRAxKFVgSMXhjYixio2aaU 9wIi8+OLKasHT8hDO3jV1qJhE l PeL9CXkvD077HgRstSWpUwjng 8zzb7vutQm3EaMzKVZstbBamO weMJO0z4EyCq40A5XrvOylk5Y w Rxd4jg69sEQst1L7pFU1C6RtJ WBjsxcmcTFeaCkmLD2xLWDzfm avIUWsbS0bGESvH9b1UuZnQxC 1 QYfiN6MisyN0JTSioCLkDUJal ZWUnU4vvcyjy9rjoicrLgWhTU SqTGi2RZf4JGJkeUvwPwMkWQX 0 DtA6DRF8nPGucI5pmCzqfvdea G9wOyc+CNn7w5ehdQDfUL7ydC R2LQ75AG96eWUvu8V3nJG3Y3H h KQEegepcwoimnTP0HTGxVJJyh K78Qz2wlKscQo0xDOAbYNL0II GxmRVjJ4WsmT8iNyXeCMZqADF w B2LdwNVhRWjbH880WJriKyO9U JBvvySyA4ZyKWVfsNazBxL8u7 U8Ow7XRW59OM05LY39mPVyn3M 5 oWJ9U0HkKWOiltfahrhjaPK3Y RPuRJVlqD66Aw7bzTzfUh7fXW DdGRS3KMOavBKpO2PrkW9sYiD j XLXdJYNvL3DhsNCeSBmdL656V EfuYhJ3NLTrnjTnG9HsUDVdeX anRjM3z7L1Ux2PKg46MZ00RJ3 8 fWNpt9H7sOD1K9AsCJWuxxmmt hbnbDH2FJNdNPTehS53Vj5ksB ofAp0hUFMpWJX3UAFejHQuD7Z v nF9eFdJyCLZxDHTdL1QxlVVvM WrkH492SSokBuQ5SNKmxgEgT2 YeAVWnsMeyGqT8m0X6Wl9INSs l sqa1Q9GeIzercBL+KX19OTCwU O68hNZjvEQgz3vczGt1ErIoGA MwHCX5kQdcJWgnq5OlWEWeN86 s bGF (more content not included)... [facility] Progress Note - Nurseon 04- Progress Note - Nurse Dr Galo reviews pt chart and wants medical clearamce d/t elevated BP on PAT visit. [Electronically Signed on: 06/02/2024 13:58 EDT] Diane Smith RN [Verified on: 06/02/2024 13:58 EDT] Diane Smith RN Spoke with Nicole at Dr Contreras office and informed her of the need for medical clearance. [Electronically Signed on: 06/02/2024 13:59 EDT] Diane Smith RN Normal [facility] .Auto Diff 1on 06-01-2024 Auto [place] % 8 % Normal 1-12 [facility] Comment on above: Performed By: #### 7 [id number], [id number], [id number] ####[facility] (DEFAULT)[address] [place] [address] 36253 Baso Abs# 0.1 x10 Normal 0.0-0.2 [facility] Comment on above: Performed By: #### 7 [id number], [id number], [id number] ####[facility] (DEFAULT)[address] [place] [address] 97142 Basophils/100 WBC (Bld) 0.9 % Normal 0.2-2.0 [facility] Comment on above: Performed By: #### 7 [id number], [id number], [id number] ####[facility] (DEFAULT)[address] [place] [address] 80145 Eos Abs# 0.2 x10 Normal 0.0-0.4 [facility] Comment on above: Performed By: #### 7 [id number], [id number], [id number] ####[facility] (DEFAULT)[address] [place] [address] 17556 Eosinophils/100 WBC (Bld) 2.2 % Normal 0.9-4.0 [facility] Comment on above: Performed By: #### 7 [id number], [id number], [id number] ####[facility] (DEFAULT)[address] [place] [address] 49853 Lymph Abs# 1.9 x10 Normal 1.3-2.9 [facility] Comment on above: Performed By: #### 7 [id number], [id number], [id number] ####[facility] (DEFAULT)[address] [place] [address] 32522 Lymphocytes/100 WBC (Bld) 19 % Normal 14-48 [facility] Comment on above: Performed By: #### 7 [id number], [id number], [id number] ####[facility] (DEFAULT)[address] [place] [address] [place] Abs# 0.8 x10 Normal 0.0-0.8 [facility] Comment on above: Performed By: #### 7 [id number], [id number], [id number] ####[facility] (DEFAULT)[address] [place] [address] Neut Abs# 7.4 x10 Normal 1.5-9.2 [facility] Comment on above: Performed By: #### 7 [id number], [id number], [id number] ####[facility] (DEFAULT)[address] [place] [address] Neutrophils/100 WBC (Bld) 71 % Normal 44-88 [facility] Comment on above: Performed By: #### 7 [id number], [id number], [id number] ####[facility] (DEFAULT)[address] [place] [address] 54998 BMP Standardon 06-01-2024 eGFR Non AA >60 Invalid Interpretation Code [facility] Comment on above: Performed By: #### 7 [id number], [id number], [id number] ####[facility] (DEFAULT)[address] [place] [address] 91856 eGFR AA >60 Invalid Interpretation Code [facility] Comment on above: Performed By: #### 7 [id number], [id number], [id number] ####[facility] (DEFAULT)[address] [place] [address] 55920 Calcium [Mass/Vol] 9.3 mg/dL Normal 8.9-10.3 [facility] Comment on above: Performed By: #### 7 [id number], [id number], [id number] ####[facility] (DEFAULT)[address] [place] [address] 95272 Chloride [Moles/Vol] 99 mmol/L Low 101-111 [facility] Comment on above: Performed By: #### 7 [id number], [id number], [id number] ####[facility] (DEFAULT)[address] [place] [address] 47205 CO2 [Moles/Vol] 28 mmol/L Normal 21-32 [facility] Comment on above: Performed By: #### 7 [id number], [id number], [id number] ####[facility] (DEFAULT)[address] [place] [address] 30489 Creatinine [Mass/Vol] 0.72 mg/dL Normal 0.60-1.30 [facility] Comment on above: Performed By: #### 7 [id number], [id number], [id number] ####[facility] (DEFAULT)[address] [place] [address] 81149 Glucose [Mass/Vol] 89.0 mg/dL Normal 74.0-118.0 [facility] [place] Comment on above: Performed By: #### 7 [id number], [id number], [id number] ####[facility] (DEFAULT)[address] [place] [address] 82950 Potassium [Moles/Vol] 4.6 mmol/L Normal 3.6-5.1 [facility] [place] Comment on above: Performed By: #### 7 [id number], [id number], [id number] ####[facility] (DEFAULT)[address] [place] [address] 95193 Sodium [Moles/Vol] 135.0 mmol/L Low 136.0-144.0 [facility] [place] Comment on above: Performed By: #### 7 [id number], [id number], [id number] ####[facility] (DEFAULT)[address] [place] [address] 12604 Urea nitrogen [Mass/Vol] 17 mg/dL Normal 8-26 [facility] [place] Comment on above: Performed By: #### 7 [id number], [id number], [id number] ####[facility] (DEFAULT)[address] [place] [address] 30670 Anion gap [Moles/Vol] 12.6 mmol/L Normal 5.0-19.0 [facility] [place] Comment on above: Performed By: #### 7 [id number], [id number], [id number] ####[facility] (DEFAULT)[address] [place] [address] Osmolality 271 mOsm/L Invalid Interpretation Code [facility] [place] Comment on above: Performed By: #### 7 [id number], [id number], [id number] ####[facility] (DEFAULT)[address] [place] [address] Urea nitrogen/Creatini ne [Mass ratio] 23.6 mg/mg High 4.6-16.2 [facility] [place] Comment on above: Performed By: #### 7 [id number], [id number], [id number] ####[facility] (DEFAULT)[address] [place] [address] CBC w/ Auto Diffon 5 Erythrocyte distribution width (RBC) [Ratio] 17.2 % High 11.5-15.0 [facility] [place] Comment on above: Performed By: #### 7 [id number], [id number], [id number] ####[facility] (DEFAULT)[address] [place] [address] Hematocrit (Bld) [Volume fraction] 36.4 % Normal 33.7-40.4 [facility] [place] Comment on above: Performed By: #### 7 [id number], [id number], [id number] ####[facility] (DEFAULT)[address] [place] [address] Hemoglobin (Bld) [Mass/Vol] 11.9 g/dL Normal 11.3-15.9 [facility] [place] Comment on above: Performed By: #### 7 [id number], [id number], [id number] ####[facility] (DEFAULT)[address] [place] [address] Man Diff? Auto Invalid Interpretation Code [facility] [place] Comment on above: Performed By: #### 7 [id number], [id number], [id number] ####[facility] (DEFAULT)[address] [place] [address] MCH (RBC) [Entitic mass] 28 pg Normal 24-34 [facility] [place] Comment on above: Performed By: #### 7 [id number], [id number], [id number] ####[facility] (DEFAULT)[address] [place] [address] 65584 MCHC (RBC) [Mass/Vol] 33 g/dL Normal 26-37 [facility] [place] Comment on above: Performed By: #### 7 [id number], [id number], [id number] ####[facility] (DEFAULT)[address] [place] [id number] MCV (RBC) [Entitic vol] 84 fL Normal 81-100 [facility] Comment on above: Performed By: #### 7 [id number], [id number], [id number] ####[facility] (DEFAULT)[address] [place] [address] Platelet 298 x10 Normal 138-427 [facility] Comment on above: Performed By: #### 7 [id number], [id number], [id number] ####[facility] (DEFAULT)[address] [place] [address] Platelet mean volume (Bld) [Entitic vol] 7.9 fL Normal 6.3-10.2 [facility] Comment on above: Performed By: #### 7 [id number], [id number], [id number] ####[facility] (DEFAULT)[address] [place] [address] RBC 4.31 x10 Normal 3.70-5.30 [facility] Comment on above: Performed By: #### 7 [id number], [id number], [id number] ####[facility] (DEFAULT)[address] [place] [address] WBC 10.5 x10 Normal 3.5-10.5 [facility] Comment on above: Result Comment: Slid e Reviewed Performed By: #### 7 [id number], [id number], [id number] ####[facility] (DEFAULT)[address] [place] [address] Creatinine [Mass/volume] in UrineOrdered By: Lili Burgos on 05-25-2024 Creatinine (U) [Mass/Vol] Creatinine [Mass/volume] in Urine [facility] Comment on above: No reference range e stablished MicroAlb Creat Ratio,Uon Albumin DL <= 20 mg/L (U) [Mass/Vol] 10.5 mg/dL High 0.0-1.8 [facility] Comment on above: Performed By: #### U RMACRERAT #### [facility] [address] Creatinine, Urine (Random) 102.00 mg/dL Normal [facility] Comment on above: Result Comment: No r eference range established Performed By: #### U RMACRERAT #### [facility] [address] Microalbumin/Crea tinine Ratio 102.9 mg/g High 0.0-30.0 [facility] Comment on above: Result Comment: 30-3 00 mg/g indicates an increased risk for diabetic nephropathy. Greater than 300 mg/g is consistent with clinical nephropathy. (Am. J. Kidney Disease 1994, 25:107) PERFORMED BY: [place] [address] PATHOLOGIST [employer] CHRISTIANO TORREZ M.D. Performed By: #### U RMACRERAT #### [address] Microalbumin [Mass/volume] i n UrineOrdered By: Lili Burgos on 05-25-2024 Albumin DL <= 20 mg/L (U) [Mass/Vol] Microalbumin [Mass/volume] in Urine High 0.0-1.8 [facility] Urine microalbumin/creatinin e mass ratioOrdered By: Lili Burgos on 05-25-2024 Albumin/Creatinin e DL <= 20 mg/L (U) [Mass ratio] Urine microalbumin/creatinine mass ratio High 0.0-30.0 [facility] Comment on above: 30-300 mg/g indicate s an increased risk for diabetic nephropathy. Greater than 300 mg/g is consistent with clinical nephropathy. (Am. J. Kidney Disease 1994, 25:107) XR CHEST 2 VIEWSon XR CHEST 2 [...] Carlos Manuel Armando on 03-10-2024 Study report [facility] Main [facility] [address] [place] [address] MRI Report Signed Patient: Lesli Clay#: [id number] : 1960 Acct:[id number] Age/Sex: 63 / F ADM Date: 5 Loc: MR Room: Type: [facility] Attending Dr: Lauren Torres PA-C Copies to: Lauren Torres PA-C~ Ordering Provider: Lauren Torres PA-C Date of Service: 03/10/24 MR/MR shoulder RT wo con: M24.811 ([id number]) XR/XR pre/post mri xray: M24.811 MRI right [...] Manuel Armando M.D.03/10/2024 10:09 AM Dictation Location: [place] [address] Transcribed By: [facility] 03/10/24 1009 Dictated By: Carlos Manuel Armando DO 03/10/24 0959 Signed By: 03/10/24 1009 [facility] XR pre/post mri xrayon 03-10 XR pre/post mri xray [facility] Main [facility] [address] [place] [address] MRI Report Signed Patient: Lesli Clay MR#: [id number] : 1960 Acct:[id number] Age/Sex: 63 / F ADM Date: 03/10/24 Loc: Room: Type: [facility] Attending Dr: Lauren Torres PA-C Copies to: Lauren Torres PA-C Ordering Provider: Lauren Torres PA-C Date of Service: 03/10/24 MR/MR shoulder RT wo con: M24.811 ([id number]) XR/XR pre/post mri xray: M2.811 MRI right Shoulder without contrast TECHNIQUE: Multiplanar [...] Manuel Armando M.D.03/10/2024 10:09 AM Dictation Location: [place] [address] Transcribed By: [facility] 03/10/24 1009 Dictated By: Carlos Manuel Armando DO 03/10/24 0959 Signed By: 03/10/24 1009 Normal [facility] Laboratory - Chemistry and C hemistry - challengeon 03-01-2024 Creatinine (U) [Mass/Vol] 74 mg/dL [facility] No Panel Informationon 03-01 Urine Microalbumin mg/dl 9.3 [facility] Urine Microalbumin/Crea tinine Ratio 126 [facility] No Panel Informationon 12-29 Bedside Glucose 171 [facility] No Panel Informationon 12-28 SERGIO Iglesias 12/29/2023 [...] and draped in the usual sterile fashion. [facility] XR Shoulder - right 2 Viewso n 12-29-2023 Imaging Result: AP and Scap Y right shoulder: No acute fracture, no dislocation Moderate AC joint arthrititis, with bone on bone formation and post surgical changes to articular surface Possible calcific tendinitis vs surgical changes Glenohumeral joint preserved with visualized lung manuel clear Impression: No acute bony process right shoulder with ac joint arthritis [facility] Radiology Study observation (narrative) [facility] Laboratory - Chemistry and C hemistry - challengeon 12-24-2023 Cobalamin (Vitamin B12) [Mass/Vol] 225 pg/mL [facility] Albumin [Mass/Vol] 3.9 g/dL [facility] ALP [Catalytic activity/Vol] 91 U/L [facility] ALT [Catalytic activity/Vol] 23 U/L [facility] AST [Catalytic activity/Vol] 16 U/L [facility] Bilirubin [Mass/Vol] 0.3 mg/dL [facility] Calcium [Mass/Vol] 9.4 mg/dL [facility] Chloride [Moles/Vol] 98 mmol/L [facility] CO2 [Moles/Vol] 32 mmol/L [facility] Creatinine [Mass/Vol] 0.82 mg/dL [facility] Glucose [Mass/Vol] 166 mg/dL [facility] Potassium [Moles/Vol] 5.0 mmol/L [facility] Protein [Mass/Vol] 6.9 g/dL [facility] Sodium [Moles/Vol] 137 mmol/L [facility] Urea nitrogen [Mass/Vol] 17 mg/dL [facility] Cholesterol [Mass/Vol] 149 mg/dL [facility] Cholesterol in HDL [Mass/Vol] 61 mg/dL [facility] Cholesterol in LDL [Mass/Vol] 69 mg/dL [facility] Cholesterol.total /Cholesterol in HDL [Mass ratio] 2.4 {ratio} [facility] Triglyceride [Mass/Vol] 100 mg/dL [facility] Laboratory - Hematology and Cell countson 12-24-2023 HbA1c (Bld) [Mass fraction] 8.1 % [facility] No Panel Informationon 12-23 25-Hydroxy Vitamin D Total 28 ng/mL [facility] Estimated Average Glucose 186 [facility] Estimated GFR (Non- 80 mL/min [facility] BI MAMMOGRAM SCREENING TOMOS YNTHESIS BILATERALon [...] IS VERY IMPORTANT TO YOUR HEALTH. THE [employer] GUIDELINES RECOMMEND THAT WOMEN 40 [...] Tobramycin <=1 SUSCEPTIBLE Trimethoprim/Sulfa <=20 SUSCEPTIBLE Susceptible [facility] Comment on above: Performed By: #### U RC ####[facility] [address] [place], [place] [id number] Lab Director: Hermilo Thapa, [address] [address] Lab Director: Jonel Calvert MD Glucose,Whole Bloodon 2023 Glucose [Mass/Vol] 316 mg/dL High 65-[address] [facility] Glucose [Mass/Vol] 225 mg/dL High 65-[address] [facility] Glucose [Mass/Vol] 245 mg/dL High 65-[address] [facility] Calcium, Ionicon 07-28-2023 Calcium [Moles/Vol] 1.26 mmol/L Normal 1.13-1.[address] [facility] Comment on above: Performed By: #### N HOUSEKEEPING ASSISTANT #### [employer] [address] [place] [address] [employer]dered [employer] Pulverizer Operator: Hermilo Thapa MD Glucose (POC)on 07-28-2023 Glucose [Mass/Vol] 227 mg/dL High 74-[address] [facility] Glucose,Whole Bloodon 2023 Glucose [Mass/Vol] 247 mg/dL High 65-[address] [facility] Glucose [Mass/Vol] 252 mg/dL High 65-[address] [facility] Glucose [Mass/Vol] 280 mg/dL High 65-[address] [facility] Glucose [Mass/Vol] 214 mg/dL High 65-[address] [facility] Lactic Acidon 07-28-2023 Lactic Acid,Whole Bl 1.5 mmol/L Normal 0.7-2.[address] [facility] Comment on above: Performed By: #### N HOUSEKEEPING ASSISTANT #### [address] [address] [employer] Operator: Hermilo Thapa MD Non-Contact Center Team Lead Cytologyon 4 Case No: [id number] Normal [facility] Comment on above: Performed By: #### N HOUSEKEEPING ASSISTANT #### [address] [address] [employer] Operator: Hermilo Thapa MD Specimen Description .PELVIC WASHINGS Normal [facility] Comment on above: Performed By: #### N HOUSEKEEPING ASSISTANT #### [address] [address] [employer] Operator: Hermilo hTapa MD Open Heart Panelon 4 Donald Test INFORMATION NOT PROVIDED Normal [facility] Comment on above: Performed By: #### N HOUSEKEEPING ASSISTANT #### [address] [address] [employer] Pulver[employer] Operator: Hermilo Thapa MD Body Temp. 37.[address] [facility] Comment on above: Performed By: #### N HOUSEKEEPING ASSISTANT #### [address] [address] [employer] Pul[employer] Operator: Hermilo Thapa MD Carboxy Hgb 1.8 % Normal 0-[address] [facility] Comment on above: Result Comment: Reference Range: Non-Smokers 0-2% Average Smoker 2-4% Heavy Smoker <10% Performed By: #### N HOUSEKEEPING ASSISTANT #### [address] [address] [employer] Pulver[employer] Operator: Hermilo Thapa MD Chloride [Moles/Vol] 108 mmol/L Normal 98-[address] [facility] Comment on above: Performed By: #### N HOUSEKEEPING ASSISTANT #### [facility] [address] [place] [address] Powdered Sugar Pulverizer Operator: Hermilo Thpaa MD FIO2 40% Normal [facility] Comment on above: Performed By: #### N HOUSEKEEPING ASSISTANT #### [facility] [address] [place] [address] [employer] Pulverizer Operator: Hermilo Thapa MD Glucose [Mass/Vol] 210 mg/dL High 65-[address] [facility] Comment on above: Performed By: #### N HOUSEKEEPING ASSISTANT #### [address] [address] [employer] Pulver[employer] Operator: Hermilo Thapa MD HCO3 (Bld) [Moles/Vol] 20.2 mmol/L Low 22-[address] [facility] Comment on above: Performed By: #### N HOUSEKEEPING ASSISTANT #### [address] [address] [employer] Operator: Hermilo Thapa MD Hematocrit (Bld) [Volume fraction] 35.7 % Low 36.3-47.[address] [facility] Comment on above: Performed By: #### N HOUSEKEEPING ASSISTANT #### [address] [address] [employer] Pulver[employer] Operator: Hermilo Thapa MD Hemoglobin (Bld) [Mass/Vol] 11.6 g/dL Low 11.9-15.[address] [facility] Comment on above: Performed By: #### N HOUSEKEEPING ASSISTANT #### [address] [address] [employer] Pulver[employer] Operator: Hermilo Thapa MD Negative Base Excess 4.4 mmol/L High 0.0-2.[address] [facility] Comment on above: Performed By: #### N HOUSEKEEPING ASSISTANT #### [address] [address] [employer] Pulver[employer] Operator: Hermilo Thapa MD Oxygen (Bld) [Partial pressure] 106.0 mm[Hg] High 75-[address] [facility] Comment on above: Performed By: #### N HOUSEKEEPING ASSISTANT #### [address] [address] Powdered Sugar Pulverizer Operator: Hermilo Thapa MD Oxygen saturation in Blood 97.1 % Normal 94-[address] [facility] Comment on above: Performed By: #### N HOUSEKEEPING ASSISTANT #### [address] [address] [employer] Pulverizer Operator: Hermilo Thapa MD pCO2 37.7 mmHg Normal 32-[address] [facility] Comment on above: Performed By: #### N HOUSEKEEPING ASSISTANT #### [address] [address] Powdered [employer] Pulverizer Operator: Hermilo Thapa MD pH (Bld) 7.348 [pH] Low 7.350-7.[address] [facility] Comment on above: Performed By: #### N HOUSEKEEPING ASSISTANT #### [address] [address] Pow[employer] Pulverizer Operator: Hermilo Thapa MD Potassium [Moles/Vol] 4.5 mmol/L Normal 3.6-5.[address] [facility] Comment on above: Performed By: #### N HOUSEKEEPING ASSISTANT #### [address] [address] Powdered [employer] Pulverizer Operator: Hermilo Thapa MD Sodium [Moles/Vol] 135 mmol/L Low 136-[address] [facility] Comment on above: Performed By: #### N HOUSEKEEPING ASSISTANT #### [address] [address] [employer] Pulver[employer] Operator: Hermilo Thapa MD Potassium (POC)on 07-28-2023 Potassium [Moles/Vol] 4.8 mmol/L High 3.5-4.[address] [facility] Surgical Pathology Reporton 07-28-2023 Surgical Pathology Report (NOTE) Path Number: [id number] -- Diagnosis -- A. CERVIX, UTERUS, BILATERAL [...] tissue reveals mcwilliams-red, spongy and vascularized tissue. [employer] sections are submitted in 18c as follows: 1 anterior cervix 2 posterior cervix 3-4 posterior endomyometrium 5 manufacturer representative anterior endomyometrium with fat attached at serosa 6 manufacturer representative anterior fat attached to serosa 7-8 anterior cervix and lower uterine segment, longitudinal section 9-10 posterior cervix and lower uterine segment, longitudinal section 11-14 manufacturer representative left fallopian tube, ovary and adnexal soft tissue 15-18 manufacturer representative right fallopian tube, ovary and adnexal soft tissue. BGhulam CLAY, RIGHT PELVIC LYMPH NODES Received in formalin are two yellow-red, lobulated adipose tissue fragments, 3.6 cm and 5.0 cm. Upon palpation and dissection, no lymph node candidates are identified. Totally embedded 4c. CGhulam CLAY, LEFT PELVIC LYMPH NODES Received in formalin is a 4.6 cm aggregate of yellow-red, lobulated adipose tissue. Upon palpation and dissection, a 2.1 cm lymph node candidate is identified. The lymph node demonstrates a thin, possible rim of mcwilliams-pink lymphoid tissue and predominantly fatty replaced cut surfaces. The lymph node candidate is totally embedded in 2c (more content not included)... Normal [facility] Surgical Pathology Report (NOTE) Path Number: [id number] INTERPRETATION Pelvic washings: Satisfactory for evaluation. NEGATIVE FOR MALIGNANCY. Hypocellular fluid with few mononuclear inflammatory cells and strips of benign mesothelial cells. Electronically Signed Out John Paul [place]. 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 Gross Description PELVIC WASHING 30 ml. colorless fluid. MICROSCOPIC DESCRIPTION Microscopic examination performed. Non Contact Center Team Lead Thin Prep x 1, Cell Block w/ HANH x 1 Processing Lab: [address] [id number] Interpretation performed at [address] [phone] NONGYNECOLOGICAL CYTOPATHOLOGY CONSULTATION Patient Name: LESLI CLAY [facility] Rec: [id number] [facility] ANATOMIC PATHOLOGY [address] [place] [id number] [facility] CBC with Diffon 07-16-2023 Abs. Basophil 0.03 k/uL Normal 0.00-0.[address] [facility] Comment on above: Performed By: #### C P, LIPR, MG, CDP, TSH, GLYHGB #### [employer] [address] [place] [address] Powdered Sugar Pulverizer Operator: Hermilo Thapa MD Abs.Imm.Granulocy te 0.03 k/uL Normal 0.00-0.[address] [facility] Comment on above: Performed By: #### C P, LIPR, MG, CDP, TSH, GLYHGB #### [place] [address] Powdered Sugar Pulverizer Operator: Hermilo Thapa MD Abs.Neutrophil (Seg) 6.45 k/uL Normal 1.50-8.[address] [facility] Comment on above: Performed By: #### C P, LIPR, MG, CDP, TSH, GLYHGB #### [place] [address] Powdered Sugar Pulverizer Operator: Hermilo Thapa MD Basophils/100 WBC (Bld) 0 % Normal 0-[address] [facility] Comment on above: Performed By: #### C P, LIPR, MG, CDP, TSH, GLYHGB #### [place] [address] Powdered Sugar Pulverizer Operator: Hermilo Thapa MD Eosinophils (Bld) [#/Vol] 0.15 10*3/uL Normal 0.00-0.[address] [facility] Comment on above: Performed By: #### C P, LIPR, MG, CDP, TSH, GLYHGB #### [place] [address] Powdered Sugar Pulverizer Operator: Hermilo Thapa MD Eosinophils/100 WBC (Bld) 2 % Normal 1-[address] [facility] Comment on above: Performed By: #### C P, LIPR, MG, CDP, TSH, GLYHGB #### [place] [address] Powdered Sugar Pulverizer Operator: Hermilo Thapa MD Erythrocyte distribution width (RBC) [Ratio] 14.7 % High 11.8-14.[address] [facility] Comment on above: Performed By: #### C P, LIPR, MG, CDP, TSH, GLYHGB #### [place] [address] Powdered Sugar Pulverizer Operator: Hermilo Thapa MD Hematocrit (Bld) [Volume fraction] 37.3 % Normal 36.3-47.[address] [facility] Comment on above: Performed By: #### C P, LIPR, MG, CDP, TSH, GLYHGB #### [address] [address] Powdered Sugar Pulverizer Operator: Hermilo Thapa MD Hemoglobin (Bld) [Mass/Vol] 11.7 g/dL Low 11.9-15.[address] [facility] Comment on above: Performed By: #### C P, LIPR, MG, CDP, TSH, GLYHGB #### [address] [address] Powdered Sugar Pulverizer Operator: Hermilo Thapa MD Immature granulocytes/100 WBC (Bld) 0 % Normal [address] [facility] Comment on above: Performed By: #### C P, LIPR, MG, CDP, TSH, GLYHGB #### [place] [address] Powdered Sugar Pulverizer Operator: Hermilo Thapa MD Lymphocytes (Bld) [#/Vol] 2.59 10*3/uL Normal 1.10-3.[address] [facility] Comment on above: Performed By: #### C P, LIPR, MG, CDP, TSH, GLYHGB #### [address] [address] Powdered Sugar Pulverizer Operator: Hermilo Thapa MD Lymphocytes/100 WBC (Bld) 26 % Normal 24-[address] [facility] Comment on above: Performed By: #### C P, LIPR, MG, CDP, TSH, GLYHGB #### [address] [address] Powdered Sugar Pulverizer Operator: Hermilo Thapa MD MCH (RBC) [Entitic mass] 27.6 pg Normal 25.2-33.[address] [facility] Comment on above: Performed By: #### C P, LIPR, MG, CDP, TSH, GLYHGB #### [address] [address] Powdered Sugar Pulverizer Operator: Hermilo Thapa MD MCHC (RBC) [Mass/Vol] 31.4 g/dL Normal 28.4-34.[address] [facility] Comment on above: Performed By: #### C P, LIPR, MG, CDP, TSH, GLYHGB #### [address] [address] Powdered Sugar Pulverizer Operator: Hermilo Thapa MD MCV (RBC) [Entitic vol] 88.0 fL Normal 82.6-102.[address] [facility] Comment on above: Performed By: #### C P, LIPR, MG, CDP, TSH, GLYHGB #### [place] [address] Powdered Sugar Pulverizer Operator: Hermilo Thapa MD Monocytes (Bld) [#/Vol] 0.59 10*3/uL Normal 0.10-1.[address] [facility] Comment on above: Performed By: #### C P, LIPR, MG, CDP, TSH, GLYHGB #### [place] [address] Powdered Sugar Pulverizer Operator: Hermilo Thapa MD Monocytes/100 WBC (Bld) 6 % Normal 3-[address] [facility] Comment on above: Performed By: #### C P, LIPR, MG, CDP, TSH, GLYHGB #### [place] [address] Powdered Sugar Pulverizer Operator: Hermilo Thapa MD Neutrophil (Seg) 66 % High 36-65 [facility] Comment on above: Performed By: #### C P, LIPR, MG, CDP, TSH, GLYHGB #### [address] [address] Powdered Sugar Pulverizer Operator: Hermilo Thapa MD NRBC Automated 0.0 per 100 WBC Normal 0.[address] [facility] Comment on above: Performed By: #### C P, LIPR, MG, CDP, TSH, GLYHGB #### [address] [address] Powdered Sugar Pulverizer Operator: Hermilo Thapa MD Platelet mean volume (Bld) [Entitic vol] 10.2 fL Normal 8.1-13.[address] [facility] Comment on above: Performed By: #### C P, LIPR, MG, CDP, TSH, GLYHGB #### [address] [address] Powdered Sugar Pulverizer Operator: Hermilo Thapa MD Platelets (Bld) [#/Vol] 325 10*3/uL Normal 138-[address] [facility] Comment on above: Performed By: #### C P, LIPR, MG, CDP, TSH, GLYHGB #### [address] [address] Powdered Sugar Pulverizer Operator: Hermilo Thapa MD RBC (Bld) [#/Vol] 4.24 10*6/uL Normal 3.95-5.[address] [facility] Comment on above: Performed By: #### C P, LIPR, MG, CDP, TSH, GLYHGB #### [address] [address] Powdered Sugar Pulverizer Operator: Hermilo Thapa MD RBC morphology finding Nom (Bld) ANISOCYTOSIS PRESENT Normal [facility] Comment on above: Performed By: #### C P, LIPR, MG, CDP, TSH, GLYHGB #### [address] [address] Powdered Sugar Pulverizer Operator: Hermilo Thapa MD WBC (Bld) [#/Vol] 9.8 10*3/uL Normal 3.5-11.[address] [facility] Comment on above: Performed By: #### C P, LIPR, MG, CDP, TSH, GLYHGB #### [address] [address] Powdered Sugar Pulverizer Operator: Hermilo Thapa MD Comp Metabolic Profon 2023 Albumin [Mass/Vol] 4.4 g/dL Normal 3.5-5.[address] [facility] Comment on above: Performed By: #### C P, LIPR, MG, CDP, TSH, GLYHGB #### [address] [address] Powdered Sugar Pulverizer Operator: Hermilo Thapa MD Albumin/Glob Ratio 1.0 Normal 1.0-2.[address] [facility] Comment on above: Performed By: #### C P, LIPR, MG, CDP, TSH, GLYHGB #### [address] [address] Powdered Sugar Pulverizer Operator: Hermilo Thapa MD Alkaline Phos 103 U/L Normal 35-[address] [facility] Comment on above: Performed By: #### C P, LIPR, MG, CDP, TSH, GLYHGB #### [facility] [employer] [address] [place] [address] Powdered Sugar Pulverizer Operator: Hermilo Thapa MD ALT [Catalytic activity/Vol] 15 U/L Normal 10-[address] [facility] Comment on above: Performed By: #### C P, LIPR, MG, CDP, TSH, GLYHGB #### [facility] [employer] [address] [place] [address] Powdered Sugar Pulverizer Operator: Hermilo Thapa MD Anion gap [Moles/Vol] 13 mmol/L Normal 9-[address] [facility] Comment on above: Performed By: #### C P, LIPR, MG, CDP, TSH, GLYHGB #### [address] [address] Powdered Sugar Pulverizer Operator: Hermilo Thapa MD AST [Catalytic activity/Vol] 18 U/L Normal 10-[address] [facility] Comment on above: Performed By: #### C P, LIPR, MG, CDP, TSH, GLYHGB #### [facility] [employer] [address] [place] [address] Powdered Sugar Pulverizer Operator: Hermilo Thapa MD Bilirubin [Mass/Vol] 0.3 mg/dL Normal 0.00-1.[address] [facility] Comment on above: Performed By: #### C P, LIPR, MG, CDP, TSH, GLYHGB #### [address] [address] Powdered Sugar Pulverizer Operator: Hermilo Thapa MD Calcium [Mass/Vol] 9.9 mg/dL Normal 8.6-10.4 [facility] Comment on above: Performed By: #### C P, LIPR, MG, CDP, TSH, GLYHGB #### [address] [address] [employer] Operator: Hermilo Thapa MD Chloride [Moles/Vol] 103 mmol/L Normal 98-[address] [facility] Comment on above: Performed By: #### C P, LIPR, MG, CDP, TSH, GLYHGB #### [address] [address] [employer] Operator: Hermilo Thapa MD CO2 [Moles/Vol] 23 mmol/L Normal 20-[address] [facility] Comment on above: Performed By: #### C P, LIPR, MG, CDP, TSH, GLYHGB #### [address] [address] [employer] Operator: Hermilo Thapa MD Creatinine [Mass/Vol] 1.0 mg/dL High 0.50-0.[address] [facility] Comment on above: Performed By: #### C P, LIPR, MG, CDP, TSH, GLYHGB #### [address] [address] [employer] Operator: Hermilo Thapa MD GFR/1.73 sq M.predicted among non-blacks MDRD (S/P/Bld) [Vol rate/Area] 64 mL/min/{1.73_m2} Normal >[address] [facility] Comment on above: Result Comment: These [...] P, LIPR, MG, CDP, TSH, GLYHGB #### [facility] [address] [place] [address] [employer] Operator: Hermilo Thapa MD Glucose [Mass/Vol] 161 mg/dL High 74-[address] [facility] Comment on above: Performed By: #### C P, LIPR, MG, CDP, TSH, GLYHGB #### [facility] [employer] [address] [place] [address] [employer] Operator: Hermilo Thapa MD Potassium [Moles/Vol] 4.7 mmol/L Normal 3.7-5.[address] [facility] Comment on above: Performed By: #### C P, LIPR, MG, CDP, TSH, GLYHGB #### [facility] [address] [place] [address] [employer] Operator: Hermilo Thapa MD Protein [Mass/Vol] 7.9 g/dL Normal 6.6-8.[address] [facility] Comment on above: Performed By: #### C P, LIPR, MG, CDP, TSH, GLYHGB #### [facility] [address] [place] [address] [employer] Operator: Hermilo Thapa MD Sodium [Moles/Vol] 139 mmol/L Normal 136-[address] [facility] Comment on above: Performed By: #### C P, LIPR, MG, CDP, TSH, GLYHGB #### [facility] [address] [place] [address] [employer] Operator: Hermilo Thapa MD Urea nitrogen [Mass/Vol] 21 mg/dL Normal 8-[address] [facility] Comment on above: Performed By: #### C P, LIPR, MG, CDP, TSH, GLYHGB #### [address] [address] [employer] Operator: Hermilo Thapa MD Hemoglobin A1Con 07-16-2023 Glucose [Mass/Vol] 206 mg/dL Normal [facility] Comment on above: Result Comment: The ADA and AACC recommend providing the estimated average glucose result to permit better patient understanding of their HBA1c result. Performed By: #### C P, LIPR, MG, CDP, TSH, GLYHGB #### [facility] [address] [place] [address] [employer] Operator: Hermilo Thapa MD HbA1c (Bld) [Mass fraction] 8.8 % High 4.0-6.[address] [facility] Comment on above: Performed By: #### C P, LIPR, MG, CDP, TSH, GLYHGB #### [address] [address] [employer] Operator: Hermilo Thapa MD Lipid Profileon 3 Cholesterol [Mass/Vol] 117 mg/dL Normal 0-[address] [facility] Comment on above: Result Comment: Cholesterol Guidelines: <200 Desirable 200-240 Borderline >240 Undesirable Performed By: #### C P, LIPR, MG, CDP, TSH, GLYHGB #### [facility] [address] [place] [address] [employer] Operator: Hermilo Thapa MD Cholesterol in HDL [Mass/Vol] 36 mg/dL Low >[address] [facility] Comment on above: Result Comment: HDL Guidelines: <40 Undesirable 40-59 Borderline >59 Desirable Performed By: #### C P, LIPR, MG, CDP, TSH, GLYHGB #### [address] [address] [employer] Operator: Hermilo Thapa MD Cholesterol in LDL [Mass/Vol] 60 mg/dL Normal 0-[address] [facility] Comment on above: Result Comment: LDL Guidelines: <100 Desirable 100-129 Near to/above Desirable 130-159 Borderline >159 Undesirable Direct (measured) LDL and calculated LDL are not interchangeable tests. Performed By: #### C P, LIPR, MG, CDP, TSH, GLYHGB #### [facility] [address] [place] [address] [employer] Operator: Hermilo Thapa MD Cholesterol in VLDL [Mass/Vol] 21 mg/dL Normal [facility] Comment on above: Performed By: #### C P, LIPR, MG, CDP, TSH, GLYHGB #### [facility] [address] [place] [address] [employer] Operator: Hermilo Thapa MD Cholesterol.total /Cholesterol in HDL [Mass ratio] 3.0 {ratio} Normal [facility] Comment on above: Performed By: #### C P, LIPR, MG, CDP, TSH, GLYHGB #### [facility] [address] [place] [address] [employer] Operator: Hermilo Thapa MD Triglyceride [Mass/Vol] 107 mg/dL Normal <[address] [facility] Comment on above: Result Comment: Triglyceride Guidelines: <150 Desirable 150-199 Borderline 200-499 High >499 Very high Based on AHA Guidelines for fasting triglyceride, November 2011. Performed By: #### C P, LIPR, MG, CDP, TSH, GLYHGB #### [facility] [address] [place] [address] [employer] Operator: Hermilo Thapa MD Magnesiumon 07-16-2023 Magnesium [Mass/Vol] 1.6 mg/dL Normal 1.6-2.[address] [facility] Comment on above: Performed By: #### C P, LIPR, MG, CDP, TSH, GLYHGB #### [facility] [address] [place] [address] [employer]ver[employer] Operator: Hermilo Thapa MD Thyroid Stim. Horm.on 2023 Thyroid Stim. Horm. 0.74 uIU/mL Normal 0.27-4.[address] [facility] Comment on above: Performed By: #### C P, LIPR, MG, CDP, TSH, GLYHGB #### [address] [place] [address] [employer] Operator: Hermilo Thapa MD Type + Screenon 07-16-2023 Type + Screen Sample Expiration 07/31/2023,2359 Arm Band Number [id number] ABO/Rh(D) O POSITIVE Antibody Screen NEGATIVE Normal [facility] Comment on above: Performed By: #### T YS ####[address] [address] Lab Director: Hermilo Thapa MD Hemoglobin A1Con 06-30-2023 Glucose [Mass/Vol] 177 mg/dL Normal [facility] Comment on above: Result Comment: The ADA and AACC recommend providing the estimated average glucose result to permit better patient understanding of their HBA1c result. Performed By: #### G LYHGB #### [address] [address] [employer] Operator: Hermilo Thapa MD #### TSHX #### [facility] [address] [place] [address] [place] [address] [employer] Operator: Salvador Israel MD HbA1c (Bld) [Mass fraction] 7.8 % High 4.0-6.0 [facility] Comment on above: Performed By: #### G LYHGB #### [address] [address] [employer] Pulver[employer] Operator: Hermilo Thapa MD #### TSHX #### [facility] [address] [place] [address] [employer]ver[employer] Operator: Salvador Israel MD Lipid Profileon 06-30-2023 Cholesterol [Mass/Vol] 144 mg/dL Normal 0-199 [facility] Comment on above: Result Comment: Cholesterol Guidelines: <200 Desirable 200-240 Borderline >240 Undesirable Performed By: #### L IPR #### [facility] [address] [place] [address] [employer] Operator: Hermilo Thapa MD Cholesterol in HDL [Mass/Vol] 48 mg/dL Normal >40 [facility] Comment on above: Result Comment: HDL Guidelines: <40 Undesirable 40-59 Borderline >59 Desirable Performed By: #### L IPR #### [facility] [address] [place] [address] [employer] Operator: Hermilo Thapa MD Cholesterol in LDL [Mass/Vol] 73 mg/dL Normal 0-100 [facility] Comment on above: Result Comment: LDL Guidelines: <100 Desirable 100-129 Near to/above Desirable 130-159 Borderline >159 Undesirable Direct (measured) LDL and calculated LDL are not interchangeable tests. Performed By: #### L IPR #### [facility] [address] [place] [address] [employer] Operator: Hermilo Thapa MD Cholesterol in VLDL [Mass/Vol] 23 mg/dL Normal [facility] Comment on above: Performed By: #### L IPR #### [facility] [address] [place] [address] [employer] Operator: Hermilo Thapa MD Cholesterol.total /Cholesterol in HDL [Mass ratio] 3.0 {ratio} Normal [facility] Comment on above: Performed By: #### L IPR #### [facility] [address] [place] [address] [employer] Operator: Hermilo Thapa MD Triglyceride [Mass/Vol] 115 mg/dL Normal <150 [facility] Comment on above: Result Comment: Triglyceride Guidelines: <150 Desirable 150-199 Borderline 200-499 High >499 Very high Based on AHA Guidelines for fasting triglyceride, November 2011. Performed By: #### L IPR #### [facility] [address] [place] [id number] [employer] Operator: Hermilo Thapa MD Laboratory - Hematology and Cell countson 06-29-2023 HbA1c (Bld) [Mass fraction] 7.8 % [facility] TSH w/reflex to FT4on 2023 Thyroid Stim. Horm. 3.23 uIU/mL Normal 0.30-5.00 [facility] Comment on above: Performed By: #### G LYHGB #### [facility] [address] [place], [place] [phone] [employer] Operator: Hermilo Thapa MD #### TSHX #### [facility] [address] [place] [address] Powdered [employer] Pulverizer Operator: Salvador Israel MD CT ABDOMEN PELVIS W [...] Etta Jay MD 06/20/23 Final result Normal [facility] HPV DNA High Riskon 06-16-19 HPV Interp Normal [facility] Comment on above: Result Comment: This [...] other forensic purposes. Performed By: #### H PVH ####[place] [address] Lab Director: Hermilo Thapa MD HPV Type 16 Not detected [facility] Comment on above: Performed By: #### H PVH ####[address] [address] Lab Director: Hermilo Thapa MD HPV Type 18 Not detected [facility] Comment on above: Performed By: #### H PVH ####[facility] [address] [place] [address] Lab Director: Hermilo Thapa MD Other High Risk HPV Not detected [facility] Comment on above: Performed By: #### H PVH ####[facility] [address] [place] [address] Lab Director: Hermilo Thapa MD HPV Sample .THIN PREP [facility] Comment on above: Performed By: #### H PVH ####[facility] [address] [address] Lab Director: Hermilo Thapa MD Source CERVICAL MATERIAL Normal [facility] Comment on above: Performed By: #### H [facility] ####[address] [address] Lab Director: Hermilo Thapa MD Cytology Reporton 06-15-2023 Cytology report Cyto stain.thin prep Doc (Cvx/Vag) (NOTE) Path Number: [id number] DIAGNOSIS Imaged ThinPrep Pap - Cervical (1 [...] or for other forensic purposes. Performed at [facility], [address] [place] [id number] . Source of Specimen: A: Imaged ThinPrep Pap - Cervical (1 monolayer slide) HPV Reflex?.................. ....HPV Regardless Clinical History Postmenopausal Z12.4 Encounter for screening for malignant neoplasm of cervix Processing Lab: [address] [address] Interpretation performed at [address] [address] This Pap Test has been evaluated with the assistance of the [employer] Pap Test Imaging System. The Pap smear is a screening test primarily for squamous epithelial lesions, which is subject to both false negative and false positive results. Your patient should be reminded to consult you immediately if she experiences any suspicious signs or symptoms, regardless of her Pap smear result. GYNECOLOGIC CYTOLOGY REPORT Patient Name: LESLI CLAY [facility] Rec: [id number] [facility] ANATOMIC PATHOLOGY [facility]. [place], [place] [address] [facility] SURGICAL PATHOLOGY REFERENCE LAB CONSULTon 05-29-[address] [facility] Comment on above: Order Comment: Speci men Type: FORMALIN-FIXED PARAFFIN-EMBEDDED TISSUE SPECIMEN Ordering Facility: [facility] Address: [address] [place] [phone] Result Comment: Surg ical Pathology Report Case: [id number] Authorizing Provider: Lukasz Neal MD Collected: 05/29/2023 12:39 PM Ordering Location: [facility] Received: 05/29/2023 12:38 PM [facility] Pathologist: Jeri Dickerson MD Specimen: Slide(s), 2 SLIDES ([id number]) Performed By: #### L [id number] #### [facility] CLIA [id number] [address] [place], [place] [address] [place] [address] [place] CLINICAL HISTORY CONSULT REQUESTED Normal C [facility] Comment on above: Order Comment: Speci men Type: FORMALIN-FIXED PARAFFIN-EMBEDDED TISSUE SPECIMEN Ordering Facility: [facility] Address: [address] [place] [phone] Performed By: #### L [id number] #### [facility] CLIA [id number] [address] [place] [address] OF [facility] DIAGNOSIS COMMENT Thank you for sendin g [...] give me a call at . Normal [facility] Comment on above: Order Comment: Speci men Type: FORMALIN-FIXED PARAFFIN-EMBEDDED TISSUE SPECIMEN Ordering Facility: [facility] Address: [address] [place], [place] [id number] Performed By: #### L [id number] #### [facility] CLIA [id number] [address] [place] [address] 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 Performed By: #### L [id number] #### [facility] CLIA [id number] [address] [place] [address] [address]FORMING LAB Normal [facility] Comment on above: Order Comment: Speci men Type: FORMALIN-FIXED PARAFFIN-EMBEDDED TISSUE SPECIMEN Ordering Facility: [facility] Address: [address] [place], [place] [address] Result Comment: Diag nostic interpretation performed at [facility], [address] [place] [address] CLIA# [id number] Director Of Business Applications: Josh Orellana M.D. Performed By: #### L [id number] #### [facility] CLIA [id number] [address] [place] [address] [place] No Panel Informationon 05-10 Bedside Glucose 121 [facility] Laboratory - Chemistry and C hemistry - challengeon 04-22-2023 Albumin [Mass/Vol] 4.0 g/dL [facility] ALP [Catalytic activity/Vol] 104 U/L [facility] ALT [Catalytic activity/Vol] 19 U/L [facility] AST [Catalytic activity/Vol] 17 U/L [facility] Bilirubin [Mass/Vol] 0.2 mg/dL [facility] Calcium [Mass/Vol] 9.8 mg/dL [facility] Chloride [Moles/Vol] 101 mmol/L [facility] CO2 [Moles/Vol] 28 mmol/L [facility] Creatinine [Mass/Vol] 0.75 mg/dL [facility] Glucose [Mass/Vol] 228 mg/dL [facility] Potassium [Moles/Vol] 5.0 mmol/L [facility] Protein [Mass/Vol] 6.8 g/dL [facility] Sodium [Moles/Vol] 137 mmol/L [facility] Urea nitrogen [Mass/Vol] 21 mg/dL [facility] Laboratory - Hematology and Cell countson 04-22-2023 HbA1c (Bld) [Mass fraction] 8.9 % [facility] No Panel Informationon 04-21 Estimated GFR (Non- 89 mL/min [facility] No Panel Informationon 04-07 Bedside Glucose 182 [facility] A1C HEMOGLOBINon 02-03-2023 HbA1c (Bld) [Mass fraction] 9.7 % [employer] Other Glucose - FINGER STICKon Glucose [Mass/Vol] 178 mg/dL [employer] Other HbA1c (Bld) [Mass fraction]o n 02-03-2023 A1C HEMOGLOBIN [employer] Other Glucose - FINGER STICKon Glucose [Mass/Vol] 180 mg/dL [employer] Other A1C HEMOGLOBINon 10-03-2022 HbA1c (Bld) [Mass fraction] 8.3 % [employer] Other Glucose - FINGER STICKon Glucose [Mass/Vol] 211 mg/dL [employer] Other HbA1c (Bld) [Mass fraction]o n 10-03-2022 A1C HEMOGLOBIN [employer] Other Creatinine (Bld) [Mass/Vol]O rdered By: Martine Tobias on 09-19-2022 Creatinine [Mass/Vol] 0.7 mg/dL 0.6-1.3 [facility] Comment on above: ER/ESD physician is notified/shown all ISTAT results.Critical values may be confirmed by laboratory testing ifdeemed necessary by ER attending doctor. A1C HEMOGLOBINon 06-06-2022 HbA1c (Bld) [Mass fraction] 8.0 % [employer] Other Glucose - FINGER STICKon Glucose [Mass/Vol] 156 mg/dL [employer] Other HbA1c (Bld) [Mass fraction]o n 06-06-2022 A1C HEMOGLOBIN [employer] Other POINT OF CARE GLUCOSEon 05-17 Glucose [Mass/Vol] 185 mg/dL Critically high 74-106 [facility] Comment on above: Performed By: #### P OCGLUC #### [facility] [address] [place] [address] Dr. Keegan Neal A1C HEMOGLOBINon 03-06-2022 HbA1c (Bld) [Mass fraction] 7.8 % [employer] Other CREATININEon 03-06-2022 Creatinine [Mass/Vol] 0.82 mg/dL Normal 0.55-1.02 [facility] Comment on above: Performed By: #### C EJ #### [facility] [address] [place], [place] [address] Dr. Keegan Neal EGFR-AF [place]THER[place]ISH >60 Normal >=60 [facility] Comment on above: Performed By: #### C EJ #### [facility] [address] [place], [place] [address] Dr[address] Keegan Neal EGFR-NON AF [place] >60 Normal >=60 [facility] Comment on above: Performed By: #### C EJ #### [facility] [address] [place], [place] [address] LSPINE WO W [...] by: BLANE THOMAS Date: 2022-03-06 11:22 Normal [facility] Glucose - FINGER STICKon 01- 19-2023 Glucose [Mass/Vol] 200 mg/dL [employer] Other HbA1c (Bld) [Mass fraction]o n 03-06-2022 A1C HEMOGLOBIN [employer] Other A1C HEMOGLOBINon 10-28-2021 HbA1c (Bld) [Mass fraction] 7.0 % [employer] Other Glucose - FINGER STICKon Glucose [Mass/Vol] 110 mg/dL [employer] Other HbA1c (Bld) [Mass fraction]o n 10-28-2021 A1C HEMOGLOBIN [employer] Other A1C HEMOGLOBINon 07-04-2021 HbA1c (Bld) [Mass fraction] 6.6 % [employer] Other Glucose - FINGER STICKon Glucose [Mass/Vol] 110 mg/dL [employer] Other HbA1c (Bld) [Mass fraction]o n 07-04-2021 A1C HEMOGLOBIN [employer] Other A1C HEMOGLOBINon 11-21-2020 HbA1c (Bld) [Mass fraction] 6.0 % [employer] Other Glucose - FINGER STICKon Glucose [Mass/Vol] 98 mg/dL [employer] Other HbA1c (Bld) [Mass fraction]o n 11-21-2020 A1C HEMOGLOBIN [employer] Other Discharge Summaryon 09-26-19 Discharge Summary MR#: [id number] [facility] Name: Lesli Clay Admitted: 09/08/2016 [...] 09/24/2016/02:52 P/Que Cano M.D.Date Trans: 09/25/2016 08:08 A/Nigel_JN:[id number] cc: Rosales Taylor M.D. [address] [facility] [address] Normal [facility] KNEE RIGHT 3 [facility] 7 KNEE RIGHT 3 [facility] [address] [place] [address] P atient Name: LESLI CLAY : 1960ex: FAge: Race: WhiteMRN: [id number]. Location: 84Patient Status: Date: 09/25/2016 8:15:00 AMCompleted Date: 09/25/2016 08:22 AMRequesting Provider: QUE BLAKE Attending Provider: Report Copy To: Signs & Symptoms: Z96.651 Presence of right artificial knee joint E79Ayigabd: AthenaComments: , , , Ordering Provider - QUE BLAKE MD , Exam: KNEE RIGHT 3 VWSAccession #: [id number] ======KNEE RIGHT 3 VWS 09/25/2016 8:22 AM EDT SIGNS AND SYMPTOMS: Z96.651 Presence of right artificial knee joint I10 TECHNOLOGIST COMMENTS: ortho follow rt knee replacement 09/08/2016 QUESTION FOR THE RADIOLOGIST: , , , Ordering Provider - QUE BLKAE MD , PROTOCOL: AP,Lateral and Tangential views [...] changes. Electronically signed by:Mindy Tomas. Transcribed by: [email or web address], User Resident: Electronically Signed by: MINDY TOMAS @ 09/25/2016 04:44 PM Normal [facility] Comment on above: Order Comment: , , = ========= , Ordering Provider - QUE BLAKE MD , Consultationon 09-21-2016 Consultation MR#: [id number] Lesli [facility] Date [...] September 23, 2016, with Dr. Blake. In [facility], she was placed in a hinged knee brace to prevent flexion of theknee. She was given renewal of Keflex. We prescribed Jones for pain controland we applied an Armando wrap for edema control.Reviewed By:Desmond Mena MD 09/22/2016 08:26 AElectronically Signed by:Martin Fonseca MD 09/25/2016 03:22 P ___Carlylen MD Marian I was not present but assume all responsibility for the exam. NOTBILLABLEDate Dict: 09/21/2016/10:51 A/Desmond Mena, MDDate Trans: 09/21/2016 11:52 A/mmoDN_JN:[id number] cc: Rosales Taylor M.D. [address] [facility] [address] Normal [facility] BASIC METABOLIC PANELon 080 Calcium 9.6 mg/dL Normal 8.6-10.3 [facility] Comment on above: Performed By: #### 0 0071 ####[facility] [facility] [place] [address], [facility] Chloride 99 mmol/L Normal 98-107 [facility] Comment on above: Performed By: #### 0 0071 ####[facility] [facility] [place] [address], [facility] CO2 29 mmol/L Normal 21-31 [facility] Comment on above: Performed By: #### 0 0071 ####[facility] [facility] [place] [address], [facility] Creatinine 0.91 mg/dL Normal 0.60-1.20 [facility] Comment on above: Performed By: #### 0 0071 ####[facility] [place] [address], [place] eGFR (black) mL/min/{1.73_m2} Normal >60 The [facility] Comment on above: Performed By: #### 0 0071 ####[facility] [place] [address], [facility] eGFR (non-black) mL/min/{1.73_m2} Normal >60 [facility] Comment on above: Performed By: #### 0 0071 ####[facility] [facility] [place] [address], [facility] Glucose mass conc 151 mg/dL High 70-100 [facility] [place] Comment on above: Performed By: #### 0 0071 ####[facility] [facility].[place], [place] [address], [facility] Potassium molar conc 4.0 mmol/L Normal 3.5-5.1 [facility] Comment on above: Performed By: #### 0 0071 ####[address] Sodium 137 mmol/L Normal 136-145 [facility] Comment on above: Performed By: #### 0 0071 ####[address] Urea nitrogen 13 mg/dL Normal 7-25 The [facility] Comment on above: Performed By: #### 0 0071 ####[address] C REACTIVE PROTEINon 017 C reactive protein (CRP) 28.5 mg/L High 0.0-7.0 [facility] Comment on above: Performed By: #### 0 0071 ####[place] [address] [facility] [place] [address], [facility] CBC W/DIFFon 09-20-2016 Basophils Auto #/vol (Bld) 0.5 % Normal 0.0-2.0 [facility] Comment on above: Performed By: #### 0 0071 ####[place] [address], [facility] Eosinophils/100 leukocytes 2.1 % Normal 0.0-5.0 [facility] Comment on above: Performed By: #### 0 0071 ####[address] Erythrocyte distribution width Auto Ratio (RBC) 17.1 % High 11.5-16.9 [facility] Comment on above: Performed By: #### 0 0071 ####[facility] Erythrocytes (RBC) 3.39 mill/mm3 Low 3.50-5.50 [facility] Comment on above: Performed By: #### 0 0071 ####[facility] [facility].[address] Hematocrit (HCT) 31.4 % Low 36.0-48.0 [facility] Comment on above: Performed By: #### 0 0071 ####[facility] Hemoglobin mass conc (Bld) 10.3 g/dL Low 12.0-15.0 [facility] Comment on above: Performed By: #### 0 0071 ####[facility] [place] [address], [facility] Lymphocytes/100 leukocytes 19.8 % Low 20.0-40.0 [facility] Comment on above: Performed By: #### 0 0071 ####[facility] MCH 30.3 pg Normal 24.0-32.0 [facility] Comment on above: Performed By: #### 0 0071 ####[facility] [place] [address], [facility] MCHC mass conc (RBC) 32.7 g/dL Normal 32.0-36.0 [facility] Comment on above: Performed By: #### 0 0071 ####[facility] [place] [address], [facility] MCV 92.6 fL Normal 80.0-100.0 [facility] Comment on above: Performed By: #### 0 0071 ####[facility] [facility] [place] [address], [facility] METHOD Normal [facility] Comment on above: Result Comment: Auto mated differential performedNormal RBC Morphology Performed By: #### 0 0071 ####[facility] [place] [address], [facility] MONOS 5.8 % Normal 2-8 [facility] Comment on above: Performed By: #### 0 0071 ####[facility]3000 [facility] [place] [address], [facility] Neutrophils/100 leukocytes 71.8 % High 50-70 [facility] Comment on above: Performed By: #### 0 0071 ####[facility] [facility] [place] [address], [facility] PLAT CNT 400 Thou/mm3 Normal 100-400 [facility] Comment on above: Performed By: #### 0 0071 ####[facility]3000 [facility].[address] WBC (Leukocytes) 10.6 Thou/mm3 High 4.0-10.[address] [facility] Comment on above: Performed By: #### 0 0071 ####[facility]3000 [facility].[address] SEDIMENTATION RATEon 017 SED RATE 107 mm/hr High 0-20 [facility] Comment on above: Performed By: #### 0 0071 ####[facility]3000 [facility].[address] POC GLUCOSE LABon 09-15-2016 Glucose mass conc 187 mg/dL High 70-100 [facility] Comment on above: Performed By: #### 0 0071 ####[facility] [place] [address], [place] Glucose mass conc 153 mg/dL High 70-100 The [facility] Comment on above: Performed By: #### 5 610, 41475 ####[facility] [place] [address], [place] POC GLUCOSE LABon 09-14-2016 Glucose mass conc 198 mg/dL High 70-100 The [facility] Comment on above: Performed By: #### 5 6100, 94126 ####[facility] [place] [address], [place] Glucose mass conc 188 mg/dL High 70-100 The [facility] Comment on above: Performed By: #### 5 6100, 75969 ####[facility] [place] [address], [place] Glucose mass conc 192 mg/dL High 70-100 The [facility] Comment on above: Performed By: #### 5 6100, 05643 ####[facility] [place] [address], [place] Glucose mass conc 155 mg/dL High 70-100 The [facility] Comment on above: Performed By: #### 5 6100, 86732 ####[facility] [place] [address], [place] POC GLUCOSE LABon 09-13-2016 Glucose mass conc 223 mg/dL High 70-100 The [facility] Comment on above: Performed By: #### 5 6100, 79269 ####[facility] [place] [address], [place] Glucose mass conc 212 mg/dL High 70-100 The [facility] Comment on above: Performed By: #### 5 610, 22000 ####[facility] [place] [address], [place] Glucose mass conc 111 mg/dL High 70-100 The [facility] [place] [facility] Comment on above: Performed By: #### 5 610, 95134 ####[facility] [place] [address], [place] Glucose mass conc 199 mg/dL High 70-100 The [facility] Comment on above: Performed By: #### 5 610, 41363 ####[facility] [place] [address], [place] Glucose mass conc 149 mg/dL High 70-100 The [facility] Comment on above: Performed By: #### 5 610, 50277 ####[facility] [place] [address], [place] POC GLUCOSE LABon 09-12-2016 Glucose mass conc 205 mg/dL High 70-100 The [facility] Comment on above: Performed By: #### 5 610, 54702 ####[facility] [place] [address], [place] Glucose mass conc 132 mg/dL High 70-100 The [facility] Comment on above: Performed By: #### 5 610, 14481 ####[facility] [place] [address], [place] Glucose mass conc 184 mg/dL High 70-100 The [facility] Comment on above: Performed By: #### 5 610, 29107 ####[facility] [place] [address], [place] Glucose mass conc 158 mg/dL High 70-100 The [facility] Comment on above: Performed By: #### 5 610, 82754 ####[facility] [place] [address], [place] POC GLUCOSE LABon 09-11-2016 Glucose mass conc 194 mg/dL High 70-100 The [facility] Comment on above: Performed By: #### 5 610, 25774 ####[facility] [place] [address], [place] Glucose mass conc 192 mg/dL High 70-100 The [facility] Comment on above: Performed By: #### 5 610, 85008 ####[facility] [place] [address], [place] Glucose mass conc 221 mg/dL High 70-100 The [facility] Comment on above: Performed By: #### 5 610, 21183 ####[facility] [place] [address], [place] Glucose mass conc 147 mg/dL High 70-100 The [facility] Comment on above: Performed By: #### 5 610, 67677 ####[facility] [place] [address], [place] POC GLUCOSE LABon 09-10-2016 Glucose mass conc 224 mg/dL High 70-100 The [facility] Comment on above: Performed By: #### 5 610, 42675 ####[facility] [facility] [place] [address], [place] Glucose mass conc 156 mg/dL High 70-100 The [facility] Comment on above: Performed By: #### 1 0008 ####[facility] [place] [address], [place] Glucose mass conc 240 mg/dL High 70-100 The [facility] Comment on above: Performed By: #### 1 0008 ####[facility] [place] [address], [place] Glucose mass conc 171 mg/dL High 70-100 The [facility] Comment on above: Performed By: #### 1 0008 ####[facility] [place] [address], [place] BASIC METABOLIC PANELon 07-2 Calcium 8.4 mg/dL Low 8.6-10.3 [facility] Comment on above: Order Comment: No: D o not add to previous draw Performed By: #### 1 0008 ####[facility] [place] [address], [facility] Chloride 99 mmol/L Normal 98-107 [facility] Comment on above: Order Comment: No: D o not add to previous draw Performed By: #### 1 0008 ####[facility] [place] [address], [facility] CO2 27 mmol/L Normal 21-31 [facility] Comment on above: Order Comment: No: D o not add to previous draw Performed By: #### 1 0008 ####[facility] [place] [address], [facility] Creatinine 1.11 mg/dL Normal 0.60-1.20 [facility] Comment on above: Order Comment: No: D o not add to previous draw Performed By: #### 1 0008 ####[facility] [facility] [place] [address], [facility] eGFR (black) mL/min/{1.73_m2} Normal >60 The [facility] Comment on above: Order Comment: No: D o not add to previous draw Performed By: #### 1 0008 ####[facility] [place] [address], [facility] eGFR (non-black) 51 ml/min/1.73sq m Abnormal >60 [facility] Comment on above: Order Comment: No: D o not add to previous draw Performed By: #### 1 0008 ####[facility] [place] [address], [facility] Glucose mass conc 161 mg/dL High 70-100 The [facility] Comment on above: Order Comment: No: D o not add to previous draw Performed By: #### 1 0008 ####[facility]3000 [facility].[address] Potassium molar conc 4.2 mmol/L Normal 3.5-5.1 [facility] Comment on above: Order Comment: No: D o not add to previous draw Performed By: #### 1 0008 ####[facility]3000 [facility].[address] Sodium 134 mmol/L Low 136-145 [facility] Comment on above: Order Comment: No: D o not add to previous draw Performed By: #### 1 0008 ####[place] [address] Urea nitrogen 24 mg/dL Normal 7-25 The [facility] Comment on above: Order Comment: No: D o not add to previous draw Performed By: #### 1 0008 ####[place] [address] CBC W/DIFFon 09-09-2016 Basophils Auto #/vol (Bld) 0.2 % Normal 0.0-2.0 [facility] Comment on above: Order Comment: No: D o not add to previous draw Performed By: #### 1 0008 ####[place] [address] [facility].[address] Eosinophils/100 leukocytes 1.0 % Normal 0.0-5.0 [facility] Comment on above: Order Comment: No: D o not add to previous draw Performed By: #### 1 0008 ####[facility] Erythrocyte distribution width Auto Ratio (RBC) 16.9 % Normal 11.5-16.9 [facility] Comment on above: Order Comment: No: D o not add to previous draw Performed By: #### 1 0008 ####[facility]3000 [facility].[address] Erythrocytes (RBC) 3.31 mill/mm3 Low 3.50-5.50 [facility] Comment on above: Order Comment: No: D o not add to previous draw Performed By: #### 1 0008 ####[facility] [facility] [place] [address], [facility] Hematocrit (HCT) 30.7 % Low 36.0-48.0 The [facility] Comment on above: Order Comment: No: D o not add to previous draw Performed By: #### 1 0008 ####[facility] Hemoglobin mass conc (Bld) 10.0 g/dL Low 12.0-15.0 [facility] Comment on above: Order Comment: No: D o not add to previous draw Performed By: #### 1 0008 ####[facility] Lymphocytes/100 leukocytes 25.6 % Normal 20.0-40.0 [facility] Comment on above: Order Comment: No: D o not add to previous draw Performed By: #### 1 0008 ####[place] [address] MCH 30.3 pg Normal 24.0-32.0 [facility] Comment on above: Order Comment: No: D o not add to previous draw Performed By: #### 1 0008 ####[facility] [facility] [place] [address], [facility] MCHC mass conc (RBC) 32.7 g/dL Normal 32.0-36.0 [facility] Comment on above: Order Comment: No: D o not add to previous draw Performed By: #### 1 0008 ####[place] [address], [facility] MCV 92.7 fL Normal 80.0-100.0 [facility] Comment on above: Order Comment: No: D o not add to previous draw Performed By: #### 1 0008 ####[facility] [place] [address], [facility] METHOD Normal [facility] Comment on above: Order Comment: No: D o not add to previous draw Result Comment: Auto mated differential performedNormal RBC Morphology Performed By: #### 1 0008 ####[facility] [place] [address], [place] MONOS 6.9 % Normal 2-8 [facility] Comment on above: Order Comment: No: D o not add to previous draw Performed By: #### 1 0008 ####[facility] [place] [address], [facility] Neutrophils/100 leukocytes 66.3 % Normal 50-70 [facility] Comment on above: Order Comment: No: D o not add to previous draw Performed By: #### 1 0008 ####[facility] [place] [address], [facility] PLAT CNT 304 Thou/mm3 Normal 100-400 [facility] Comment on above: Order Comment: No: D o not add to previous draw Performed By: #### 1 0008 ####[facility] [place] [address], [facility] WBC (Leukocytes) 8.7 Thou/mm3 Normal 4.0-10.0 The [facility] Comment on above: Order Comment: No: D o not add to previous draw Performed By: #### 1 0008 ####[facility] [place] [address], [facility] Operative Reporton 7 Operative Report MR#: [id number]li Clay Room #: [id number] Discharge Date: Birthdate: 1960 OPERATIVE REPORTDATE OF [...] 09/08/2016/08:19 P/Que Cano M.D.Date Trans: 09/09/2016 04:17 A/Nigel_JN:[id number] cc: Rosales Taylor M.D. [address] [facility] [address] Normal The [facility] POC GLUCOSE LABon 09-09-2016 Glucose mass conc 229 mg/dL High 70-100 The [facility] Comment on above: Performed By: #### 1 0008 ####[facility] [place] [address], [facility] Glucose mass conc 159 mg/dL High 70-100 The [facility] Comment on above: Performed By: #### 1 0008 ####[facility] [place] [address], [place] Glucose mass conc 182 mg/dL High 70-100 The [facility] Comment on above: Performed By: #### 1 0008 ####[facility] [facility] [place] [address], [place] Glucose mass conc 159 mg/dL High 70-100 The [facility] Comment on above: Performed By: #### 1 0008 ####[facility] [facility] [place] [address], [place] Glucose mass conc 172 mg/dL High 70-100 The [facility] Comment on above: Performed By: #### 1 0008 ####[facility] [facility] [place] [address], [place] POC GLUCOSE LABon 09-08-2016 Glucose mass conc 175 mg/dL High 70-100 The [facility] Comment on above: Performed By: #### 8 5499 ####[facility] [facility] [place] [address], [place] Glucose mass conc 165 mg/dL High 70-100 The [facility] Comment on above: Performed By: #### 8 5499 ####[facility] [facility] [place] [address], [place] Glucose mass conc 173 mg/dL High 70-100 The [facility] Comment on above: Performed By: #### 8 5499 ####[facility] [facility] [place] [address], [facility] PORTABLE KNEE RIGHT 2 VWSon 09-08-2016 PORTABLE KNEE RIGHT 2 [facility] [place] [id number] P atient Name: LESLI CLAY : 1960ex: FAge: Race: WhiteMRN: [id number]. Location: OUTPPatient Status: OVisit #: [id number] Date: 09/08/2016 2:05:00 PMCompleted Date: 09/08/2016 02:45 PMRequesting Provider: QUE CANO Attending Provider: QUE BLAKE Report Copy To: Signs & Symptoms: Pain ( specify Location)History: Patient history not availableComments: Hardware Evaluation, please do in PACUExam: PORTABLE KNEE RIGHT 2 VWSAccession #: [id number] ======PORTABLE KNEE RIGHT 2 VWS 09/08/2016 2:45 [...] arthroplasty Electronically signed by:Joan Cormier. Transcribed by: [id number], User Resident: Electronically Signed by: JOAN CORMIER @ 09/08/2016 02:48 PM Normal [facility] Comment on above: Order Comment: Hardw are Evaluation, please do in PACU APTTon 08-25-2016 aPTT 33.0 s Normal 25.0-35.0 [facility] Comment on above: Result Comment: [...] THIS PURPOSE. Performed By: #### 5 6101, 36047 ####[place] [address] BASIC METABOLIC PANELon - Calcium 9.9 mg/dL Normal 8.6-10.3 [facility] Comment on above: Performed By: #### 0 0071 ####[place] [address] [facility].[address] Chloride 96 mmol/L Low 98-107 [facility] Comment on above: Performed By: #### 0 0071 ####[place] [address] CO2 29 mmol/L Normal 21-31 [facility] Comment on above: Performed By: #### 0 0071 ####[place] [address] Creatinine 0.94 mg/dL Normal 0.60-1.20 [facility] Comment on above: Performed By: #### 0 0071 ####[place] [address] [facility].[address] eGFR (black) mL/min/{1.73_m2} Normal >60 The [facility] Comment on above: Performed By: #### 0 0071 ####[place] [address] eGFR (non-black) mL/min/{1.73_m2} Normal >60 Th e [facility] Comment on above: Performed By: #### 0 0071 ####[place] [address] [facility].[address] Glucose mass conc 128 mg/dL High 70-100 The [facility] Comment on above: Performed By: #### 0 0071 ####[facility] Potassium molar conc 4.0 mmol/L Normal 3.5-5.1 [facility] Comment on above: Performed By: #### 0 0071 ####[facility] Sodium 135 mmol/L Low 136-145 [facility] Comment on above: Performed By: #### 0 0071 ####[facility] Urea nitrogen 15 mg/dL Normal 7-25 The [facility] Comment on above: Performed By: #### 0 1 ####[facility] CBC W/DIFFon 08-25-2016 Basophils Auto #/vol (Bld) 0.2 % Normal 0.0-2.0 [facility] Comment on above: Performed By: #### 5 102 ####[facility]3000 [facility].[address] Eosinophils/100 leukocytes 1.6 % Normal 0.0-5.0 [facility] Comment on above: Performed By: #### 5 102 ####[facility]3000 [facility].[address] Erythrocyte distribution width Auto Ratio (RBC) 16.9 % Normal 11.5-16.9 [facility] Comment on above: Performed By: #### 5 3 ####[facility]3000 [facility].[address] Erythrocytes (RBC) 4.18 mill/mm3 Normal 3.50-5.50 [facility] Comment on above: Performed By: #### 5 102 ####[facility] Hematocrit (HCT) 38.2 % Normal 36.0-48.0 The [facility] Comment on above: Performed By: #### 5 0103 ####[facility] [facility] [place] [address], [facility] Hemoglobin mass conc (Bld) 12.5 g/dL Normal 12.0-15.0 [facility] Comment on above: Performed By: #### 5 0103 ####[facility]3000 [facility].[address] Lymphocytes/100 leukocytes 21.4 % Normal 20.0-40.0 [facility] Comment on above: Performed By: #### 5 0103 ####[facility] MCH 29.9 pg Normal 24.0-32.0 [facility] Comment on above: Performed By: #### 5 0103 ####[facility] MCHC mass conc (RBC) 32.7 g/dL Normal 32.0-36.0 [facility] Comment on above: Performed By: #### 5 0103 ####[facility] MCV 91.4 fL Normal 80.0-100.0 [facility] Comment on above: Performed By: #### 5 0103 ####[facility] [facility] [place] [address], [facility] METHOD Normal [facility] Comment on above: Result Comment: Auto mated differential performedNormal RBC Morphology Performed By: #### 5 0103 ####[facility] [facility] [place] [address], [facility] MONOS 5.2 % Normal 2-8 [facility] Comment on above: Performed By: #### 5 0103 ####[facility] [facility] [place] [address], [facility] Neutrophils/100 leukocytes 71.6 % High 50-70 [facility] Comment on above: Performed By: #### 5 0103 ####[facility] [facility] [place] [address], [facility] PLAT CNT 351 Thou/mm3 Normal 100-400 [facility] Comment on above: Performed By: #### 5 0103 ####[facility] [facility] [place] [address], [facility] WBC (Leukocytes) 12.0 Thou/mm3 High 4.0-10.0 [facility] Comment on above: Performed By: #### 5 0103 ####[facility] [facility] [place] [address], [facility] PROTHROMBIN TIMEon 7 INR Coag RelTime (PPP) 0.97 {INR} Normal 0.91-1.16 [facility] Comment on above: Result Comment: ACCC P RECOMMENDED INR FOR WARFARIN THERAPY CONDITION INRPROPHYLAXIS OF VENOUS THROMBOSIS 2-3(HIGH-RISK SURGERY)TREATMENT OF VENOUS THROMBOSIS 2-3TREATMENT OF PULMONARY EMBOLISM 2-3PREVENTION OF SYSTEMIC EMBOLISM: 2-3 ACUTE MYOCARDIAL INFARCTION TISSUE HEART VALVES VALVULAR HEART DISEASE ATRIAL FIBRILLATION RECURRENT SYSTEMIC EMBOLISMMECHANICAL HEART VALVE 2.5-3.5 FROM: ORAL ANTICOAGULANTS. MECHANISM OF ACTION, CLINICALEFFECTIVENESS, AND OPTIMAL THERAPEUTIC RANGE. [id number]. Performed By: #### 5 [id number], [id number] ####[facility].[address] Prothrombin time (PT) Coag time (PPP) 12.9 s Normal 12.3-14.8 [facility] Comment on above: Result Comment: ALL RESULTS MUST BE INTERPRETED WITH RESPECT TO BLOOD DRAWING ARTIFACTOR DILUTION ERROR OF ANTICOAGULANT AT THE TIME OF SAMPLING. Performed By: #### 5 [id number], [id number] ####[facility].[address] TYPE AND SCREENon 08-25-2016 ABO INTERPRETATION O Normal [facility] Comment on above: Performed By: #### 6 [id number] ####[facility].[address] ANTIBODY SCREEN Negative Normal The [facility] Comment on above: Performed By: #### 6 2586 ####[facility].[address] RH INTERPRETATION Positive Normal The [facility] Comment on above: Performed By: #### 6 2586 ####[facility].[address] URINALYSISon 08-25-2016 Bilirubin (total) Negative Normal NEGATIVE The [facility] Comment on above: Performed By: #### 1 0008 ####[facility].[address] BLOOD MODERATE Abnormal NEGATIVE [facility] Comment on above: Performed By: #### 1 0008 ####[facility] [place] [address], [facility] EPIS MOD Abnormal FEW [facility] Comment on above: Performed By: #### 1 0008 ####[address] [place] [address], [facility] Erythrocytes (RBC) 3-5 Abnormal 0-0 [facility] Comment on above: Performed By: #### 1 0008 ####[facility] [place] [address], [facility] Glucose mass conc Negative Normal NEGATIVE The [facility] Comment on above: Performed By: #### 1 0008 ####[facility] [place] [address], [facility] KETONE Negative Normal NEGATIVE [facility] Comment on above: Performed By: #### 1 0008 ####[facility] [place] [address], [place] LEUK ZEYNEP TRACE Abnormal NEGATIVE [facility] Comment on above: Performed By: #### 1 0008 ####[facility] [place] [address], [facility] pH of blood 7.0 [pH] Normal 5.0-8.0 The [facility] Comment on above: Performed By: #### 1 0008 ####[facility] [place] [address], [facility] Protein Negative Normal NEGATIVE [facility] Comment on above: Performed By: #### 1 0008 ####[facility] [place] [address], [facility] SPEC GRAV 1.006 Low 1.015-1.020 [facility] Comment on above: Performed By: #### 1 0008 ####[facility] [place] [address], [place] Urine, appearance CLEAR Normal CLEAR The [facility] Comment on above: Performed By: #### 1 0008 ####[facility] [place] [address], [place] Urine, bacteria in sediment MANY Abnormal NONE SEEN [facility] Comment on above: Performed By: #### 1 0008 ####[facility] [place] [address], [facility] Urine, color STRAW Abnormal YELLOW [facility] Comment on above: Performed By: #### 1 0008 ####[facility] [place] [address], [facility] Urine, nitrite presence Negative Normal NEGATIVE [facility] Comment on above: Performed By: #### 1 0008 ####[facility] [place] [address], [facility] WBC UA 11-20 Abnormal 0-0 [facility] Comment on above: Performed By: #### 1 0008 ####[facility].[place], [place] [id number] [place] [address] Vital Signs Date Time Vital Sign Value Performing Clinician Faci lity 06-14-2024 10:35-0400 Diastolic blood pressure 90 mm[Hg] Jennifer Cabrera MD Work Phone: [facility] 06-14-2024 10:35-0400 Systolic blood pressure 136 mm[Hg] Jennifer Cabrera MD Work Phone: [facility] 06-14-2024 09:51-0400 Body height 160 cm Jennifer Cabrera MD Work Phone: [facility] 06-14-2024 09:51-0400 Body mass index (BMI) [Ratio] 51.26 kg/m2 Jennifer Cabrera MD Work Phone: [facility] 06-14-2024 09:51-0400 Body weight 131.27 kg Jennifer Cabrera MD Work Phone: [facility] 06-14-2024 09:51-0400 Heart rate 91 /min Jennifer Cabrera MD Work Phone: [facility] 06-14-2024 09:51-0400 SaO2% (BldA) [Mass fraction] 94 % Jennifer Cabrera MD Work Phone: [facility] 06-10-2024 11:30-0400 Body mass index (BMI) [Ratio] 49.81 kg/m2 Lalitha Trujillo VEGETABLE INSPECTOR Work Phone: [facility] 06-10-2024 11:30-0400 Body temperature 98.1 [degF] Lalitha Trujillo VEGETABLE INSPECTOR Work Phone: [facility] 06-10-2024 11:30-0400 Body weight 127.55 kg Lalitha Trujillo VEGETABLE INSPECTOR Work Phone: [facility] 06-10-2024 11:30-0400 Diastolic blood pressure 86 mm[Hg] Lalitha Trujillo VEGETABLE INSPECTOR Work Phone: [facility] 06-10-2024 11:30-0400 Heart rate 85 /min Lalitha Trujillo VEGETABLE INSPECTOR Work Phone: [facility] 06-10-2024 11:30-0400 SaO2% (BldA) [Mass fraction] 97 % Lalitha Trujillo VEGETABLE INSPECTOR Work Phone: [facility] 06-10-2024 11:30-0400 Systolic blood pressure 128 mm[Hg] Lalitha Trujillo VEGETABLE INSPECTOR Work Phone: [facility] 05-31-2024 14:38-0400 Body height 160 cm Lauren Torres PA Work Phone: [facility] 05-31-2024 14:38-0400 Body mass index (BMI) [Ratio] 51.19 kg/m2 Lauren Torres PA Work Phone: [facility] 05-31-2024 14:38-0400 Body weight 131.09 kg Lauren Torres PA Work Phone: [facility] 05-25-2024 09:57-0400 Body height 160.02 cm Pastora Kohler VEGETABLE INSPECTOR-C Work Phone: [facility] 05-25-2024 09:57-0400 Body mass index (BMI) [Ratio] 51.1 kg/m2 Pastora Kohler VEGETABLE INSPECTOR-C Work Phone: [facility] 05-25-2024 09:57-0400 Body weight 130.9 kg Pastora Kohler VEGETABLE INSPECTOR-C Work Phone: [facility] 05-25-2024 09:57-0400 Diastolic blood pressure 93 mm[Hg] Pastora Kohler VEGETABLE INSPECTOR-C Work Phone: [facility] 05-25-2024 09:57-0400 Heart rate 78 /min Pastora Kohler VEGETABLE INSPECTOR-C Work Phone: [facility] 05-25-2024 09:57-0400 Respiratory rate 20 /min Pastora Kohler VEGETABLE INSPECTOR-C Work Phone: [facility] 05-25-2024 09:57-0400 SaO2% (BldA) [Mass fraction] 98 % Pastora Kohler VEGETABLE INSPECTOR-C Work Phone: [facility] 05-25-2024 09:57-0400 Systolic blood pressure 144 mm[Hg] Pastora Kohler VEGETABLE INSPECTOR-C Work Phone: [facility] 05-23-2024 13:38-0400 Body height 157.5 cm Blane Pino DPM Work Phone: [facility] 05-23-2024 13:38-0400 Body mass index (BMI) [Ratio] 53.04 kg/m2 Blane Pino DPM Work Phone: [facility] 05-23-2024 13:38-0400 Body weight 131.54 kg Blane Pino DPM Work Phone: [facility] 04-12-2024 10:47-0500 Body mass index (BMI) [Ratio] 54.5 kg/m2 Alexandra Osorio VEGETABLE INSPECTOR Work Phone: [facility] 04-12-2024 10:47-0500 Body temperature 96.21 [degF] Alexandra Osorio VEGETABLE INSPECTOR Work Phone: [facility] 04-12-2024 10:47-0500 Body weight 135.17 kg Alexandra Harickyenburg VEGETABLE INSPECTOR Work Phone: [facility] 04-12-2024 10:47-0500 Diastolic blood pressure 90 mm[Hg] Alexandra Hackenburg VEGETABLE INSPECTOR Work Phone: [facility] 04-12-2024 10:47-0500 Heart rate 82 /min Alexandra Hackenburg VEGETABLE INSPECTOR Work Phone: [facility] 04-12-2024 10:47-0500 SaO2% (BldA) [Mass fraction] 92 % Alexandra Hackenburg VEGETABLE INSPECTOR Work Phone: [facility] 04-12-2024 10:47-0500 Systolic blood pressure 136 mm[Hg] Alexandra Hackenburg VEGETABLE INSPECTOR Work Phone: [facility] 03-05-2024 08:53-0500 Body height 157.5 cm Alexandra Harickyenburg VEGETABLE INSPECTOR Work Phone: [facility] 03-05-2024 08:53-0500 Body mass index (BMI) [Ratio] 52.13 kg/m2 Alexandra Harickyenburg VEGETABLE INSPECTOR Work Phone: [facility] 03-05-2024 08:53-0500 Body weight 129.28 kg Alexandra Harickyenburg VEGETABLE INSPECTOR Work Phone: [facility] 03-05-2024 08:53-0500 Diastolic blood pressure 78 mm[Hg] Alexandra Hackenburg VEGETABLE INSPECTOR Work Phone: [facility] 03-05-2024 08:53-0500 Heart rate 94 /min Alexandra Hackenburg VEGETABLE INSPECTOR Work Phone: [facility] 03-05-2024 08:53-0500 Respiratory rate 18 /min Alexandra Hackenburg VEGETABLE INSPECTOR Work Phone: [facility] 03-05-2024 08:53-0500 SaO2% (BldA) [Mass fraction] 94 % Alexandra Hackenburg VEGETABLE INSPECTOR Work Phone: [facility] 03-05-2024 08:53-0500 Systolic blood pressure 124 mm[Hg] Alexandra Sunshineenburg VEGETABLE INSPECTOR Work Phone: [facility] 02-29-2024 16:22-0500 Body height 157.5 cm Alexandra Sunshineenburg VEGETABLE INSPECTOR Work Phone: [facility] 02-29-2024 16:22-0500 Body mass index (BMI) [Ratio] 52.49 kg/m2 Alexandra Sunshineenburg VEGETABLE INSPECTOR Work Phone: [facility] 02-29-2024 16:22-0500 Body weight 130.18 kg Alexandra Sunshineenburg VEGETABLE INSPECTOR Work Phone: [facility] 02-29-2024 16:22-0500 Diastolic blood pressure 82 mm[Hg] Alexandra Harickyenburg VEGETABLE INSPECTOR Work Phone: [facility] 02-29-2024 16:22-0500 Heart rate 78 /min Alexandra Sunshineenburg VEGETABLE INSPECTOR Work Phone: [facility] 02-29-2024 16:22-0500 Respiratory rate 18 /min Alexandra Sunshineenburg VEGETABLE INSPECTOR Work Phone: [facility] 02-29-2024 16:22-0500 SaO2% (BldA) [Mass fraction] 95 % Alexandra Sunshineenburg VEGETABLE INSPECTOR Work Phone: [facility] 02-29-2024 16:22-0500 Systolic blood pressure 130 mm[Hg] Alexandra Harickyenburg VEGETABLE INSPECTOR Work Phone: [facility] 01-19-2024 11:23-0500 Body height 157.5 cm Pastora Velardepatrick VEGETABLE INSPECTOR Work Phone: [facility] 01-19-2024 11:23-0500 Body mass index (BMI) [Ratio] 51.18 kg/m2 Pastora Kohler VEGETABLE INSPECTOR Work Phone: [facility] 01-19-2024 11:23-0500 Body temperature 97.81 [degF] Pastora Kohler VEGETABLE INSPECTOR Work Phone: [facility] 01-19-2024 11:23-0500 Body weight 126.92 kg Pastora Ackermank VEGETABLE INSPECTOR Work Phone: [facility] 01-19-2024 11:23-0500 Diastolic blood pressure 86 mm[Hg] Pastora Obrientrick VEGETABLE INSPECTOR Work Phone: [facility] 01-19-2024 11:23-0500 Heart rate 100 /min Pastora Obrientrick VEGETABLE INSPECTOR Work Phone: [facility] 01-19-2024 11:23-0500 SaO2% (BldA) [Mass fraction] 97 % Pastora Ackermank VEGETABLE INSPECTOR Work Phone: [facility] 01-19-2024 11:23-0500 Systolic blood pressure 150 mm[Hg] Pastora Obrientrick VEGETABLE INSPECTOR Work Phone: [facility] 12-30-2023 09:56-0500 Body mass index (BMI) [Ratio] 50.5 kg/m2 [facility] 12-30-2023 09:56-0500 Diastolic blood pressure 94 mm[Hg] [facility] 12-30-2023 09:56-0500 Heart rate 86 /min [facility] 12-30-2023 09:56-0500 Respiratory rate 18 /min [facility] 12-30-2023 09:56-0500 SaO2% (BldA) [Mass fraction] 100 % [facility] 12-30-2023 09:56-0500 Systolic blood pressure 136 mm[Hg] [facility] 12-30-2023 09:45-0500 Body height 160.02 cm [facility] 12-30-2023 09:45-0500 Body weight 129.35 kg [facility] 09-23-2023 14:28-0400 Body height 160.02 cm [facility] 09-23-2023 14:28-0400 Body mass index (BMI) [Ratio] 48.6 kg/m2 [facility] 09-23-2023 14:28-0400 Body weight 124.51 kg [facility] 09-23-2023 14:28-0400 Diastolic blood pressure 69 mm[Hg] [facility] 09-23-2023 14:28-0400 Heart rate 82 /min [facility] 09-23-2023 14:28-0400 Respiratory rate 20 /min [facility] 09-23-2023 14:28-0400 SaO2% (BldA) [Mass fraction] 95 % [facility] 09-23-2023 14:28-0400 Systolic blood pressure 104 mm[Hg] [facility] 06-30-2023 14:45-0400 Diastolic blood pressure 87 mm[Hg] Piotr Logan MD Work Phone: [facility] [employer] 06-30-2023 14:45-0400 Heart rate 78 /min Piotr Logan MD Work Phone: [facility] 06-30-2023 14:45-0400 Respiratory rate 16 /min Piotr Logan MD Work Phone: [facility] 06-30-2023 14:45-0400 SaO2% (BldA) [Mass fraction] 97 % Piotr Logan MD Work Phone: [facility] 06-30-2023 14:45-0400 Systolic blood pressure 133 mm[Hg] Piotr Logan MD Work Phone: [facility] 06-30-2023 12:35-0400 Body temperature 96.21 [degF] Piotr Logan MD Work Phone: [facility] 06-30-2023 11:05-0400 Body height 157.5 cm Piotr Logan MD Work Phone: [facility] 06-30-2023 11:05-0400 Body mass index (BMI) [Ratio] 52.61 kg/m2 Piotr Logan MD Work Phone: [facility] 06-30-2023 11:05-0400 Body weight 130.5 kg Piotr Logan MD Work Phone: [facility] 06-03-2023 10:04-0400 Body height 160 cm Edwin Moreno MD Work Phone: [facility] 06-03-2023 10:04-0400 Body mass index (BMI) [Ratio] 50.38 kg/m2 Edwin Moreno MD Work Phone: [facility] 06-03-2023 10:04-0400 Body temperature 97.59 [degF] Edwin Moreno MD Work Phone: [facility] 06-03-2023 10:04-0400 Body weight 129 kg Edwin Moreno MD Work Phone: [facility] 06-03-2023 10:04-0400 Diastolic blood pressure 98 mm[Hg] Edwin Moreno MD Work Phone: [facility] 06-03-2023 10:04-0400 Heart rate 90 /min Edwin Moreno MD Work Phone: [facility] 06-03-2023 10:04-0400 SaO2% (BldA) [Mass fraction] 97 % Edwin Moreno MD Work Phone: [facility] 06-03-2023 10:04-0400 Systolic blood pressure 154 mm[Hg] Edwin Moreno MD Work Phone: [facility] 05-11-2023 11:54-0400 Body height 160.02 cm [facility] 05-11-2023 11:54-0400 Body mass index (BMI) [Ratio] 51.5 kg/m2 [facility] 05-11-2023 11:54-0400 Body weight 132.05 kg [facility] 05-11-2023 11:54-0400 Diastolic blood pressure 83 mm[Hg] [facility] 05-11-2023 11:54-0400 Heart rate 74 /min [facility] 05-11-2023 11:54-0400 Respiratory rate 20 /min [facility] 05-11-2023 11:54-0400 SaO2% (BldA) [Mass fraction] 98 % [facility] 05-11-2023 11:54-0400 Systolic blood pressure 139 mm[Hg] [facility] 04-07-2023 09:09-0500 Body height 160.02 cm DO Kalie Rumschlag Work Phone: [facility] 04-07-2023 09:09-0500 Body mass index (BMI) [Ratio] 52.6 kg/m2 DO Kalie Rumschlag Work Phone: [facility] 04-07-2023 09:09-0500 Body weight 134.83 kg DO Kalie Rumschlag Work Phone: [facility] 04-07-2023 09:09-0500 Diastolic blood pressure 82 mm[Hg] DO Kalie Rumschlag Work Phone: [facility] 04-07-2023 09:09-0500 Heart rate 80 /min DO Kalie Rumschlag Work Phone: [facility] 04-07-2023 09:09-0500 Respiratory rate 20 /min DO Kalie Rumschlag Work Phone: [facility] 04-07-2023 09:09-0500 SaO2% (BldA) [Mass fraction] 93 % DO Kalie Rumschlag Work Phone: [facility] 04-07-2023 09:09-0500 Systolic blood pressure 130 mm[Hg] DO Kalie Rumschlag Work Phone: [facility] 02-03-2023 08:45-0500 Body height 160.02 cm Lili Scally Other [facility] 02-03-2023 08:45-0500 Body mass index (BMI) [Ratio] 52.61 kg/m2 Lili Scally Other [employer] Other 02-03-2023 08:45-0500 Body weight 134.72 kg Lili Scally Other [employer] Other 02-03-2023 08:45-0500 Body weight 134.71 kg DO [employer] Work Phone: [facility] 02-03-2023 08:45-0500 Diastolic blood pressure Lili Scally Other [employer] Other 02-03-2023 08:45-0500 Respiratory rate 20 /min Lili Scally Other [employer] Other 02-03-2023 08:45-0500 SaO2% (BldA) [Mass fraction] 94 % Lili Scally Other [employer] Other 02-03-2023 08:45-0500 Systolic blood pressure 144 mm[Hg] Lili Scally Other [employer] Other 11-26-2022 09:45-0400 Body height 160.02 cm Liil Scally Other [employer] Other 11-26-2022 09:45-0400 Body mass index (BMI) [Ratio] 51.37 kg/m2 Lili Scally Other [employer] Other 11-26-2022 09:45-0400 Body weight 131.54 kg Lili Scally Other [employer] Other 11-26-2022 09:45-0400 Diastolic blood pressure Lili Scally Other [employer] Other 11-26-2022 09:45-0400 Respiratory rate 20 /min Lilihebert Burgos Other [employer] Other 11-26-2022 09:45-0400 SaO2% (BldA) [Mass fraction] 96 % Lili Scally Other [employer] Other 11-26-2022 09:45-0400 Systolic blood pressure 124 mm[Hg] Lili Scally Other [employer] Other 11-25-2022 09:20-0400 Body height 160.02 cm Stoney Turner Other [employer] Other 11-25-2022 09:20-0400 Body mass index (BMI) [Ratio] 52.07 kg/m2 Stoney Turner Other [employer] Other 11-25-2022 09:20-0400 Body weight 133.36 kg Stoney Turner Other [employer] Other 10-30-2022 11:18-0400 Diastolic blood pressure 81 mm[Hg] DO Judith Amanda Work Phone: [facility] 10-30-2022 11:18-0400 Heart rate 94 /min DO Judith Amanda Work Phone: [facility] 10-30-2022 11:18-0400 Respiratory rate 18 /min DO Judith Amanda Work Phone: [facility] 10-30-2022 11:18-0400 SaO2% (BldA) [Mass fraction] 96 % DO Judith Amanda Work Phone: [facility] 10-30-2022 11:18-0400 Systolic blood pressure 159 mm[Hg] DO Judith Amanda Work Phone: [facility] 10-30-2022 09:52-0400 Body height 160.02 cm DO Judith Amanda Work Phone: [facility] 10-30-2022 09:52-0400 Body weight 126.55 kg DO Judith Amanda Work Phone: [facility] 10-09-2022 10:40-0400 Body height 160.02 cm [employer] Other [employer] [facility] [employer] Other 10-09-2022 10:40-0400 Body mass index (BMI) [Ratio] 52.07 kg/m2 [employer] Other [employer] Other 10-09-2022 10:40-0400 Body weight 133.36 kg [employer] Other [employer] Other 10-09-2022 10:40-0400 Diastolic blood pressure 88 mm[Hg] [employer] Other [employer] Other 10-09-2022 10:40-0400 Systolic blood pressure 154 mm[Hg] [employer] Other [employer] Other 10-03-2022 09:15-0400 Body height 160.02 cm Lili Scally Other [employer] Other 10-03-2022 09:15-0400 Body mass index (BMI) [Ratio] 52.09 kg/m2 Lili Scally Other [employer] Other 10-03-2022 09:15-0400 Body weight 133.4 kg Lili Scally Other [employer] Other 10-03-2022 09:15-0400 Diastolic blood pressure 88 mm[Hg] Lili Scally Other [employer] Other 10-03-2022 09:15-0400 Respiratory rate 20 /min Lili Scally Other [employer] Other 10-03-2022 09:15-0400 SaO2% (BldA) [Mass fraction] 65 % Lili Scally Other [employer] Other 10-03-2022 09:15-0400 Systolic blood pressure 143 mm[Hg] Lili Scally Other [employer] Other 09-19-2022 13:49-0400 Diastolic blood pressure 109 mm[Hg] DO Kalie Rumschlag Work Phone: [facility] 09-19-2022 13:49-0400 Heart rate 94 /min DO Kalie Rumschlag Work Phone: [facility] 09-19-2022 13:49-0400 Respiratory rate 20 /min DO Kalie Rumschlag Work Phone: [facility] 09-19-2022 13:49-0400 SaO2% (BldA) [Mass fraction] 96 % DO Kalie Rumschlag Work Phone: [facility] 09-19-2022 13:49-0400 Systolic blood pressure 209 mm[Hg] DO Kalie Rumschlag Work Phone: [facility] 09-19-2022 13:42-0400 Body height 162.56 cm DO Kalie Rumschlag Work Phone: [facility] 09-19-2022 13:42-0400 Body weight 124.73 kg DO Kalie Rumschlag Work Phone: [facility] 08-12-2022 09:40-0400 Body height 160.02 cm Martine Tobias Other [employer] Other 08-12-2022 09:40-0400 Body mass index (BMI) [Ratio] 50.62 kg/m2 [employer] Other [employer] Other 08-12-2022 09:40-0400 Body weight 129.64 kg [employer] Other [employer] Other 08-12-2022 09:40-0400 Diastolic blood pressure 86 mm[Hg] [employer] Other [employer] Other 08-12-2022 09:40-0400 Systolic blood pressure 150 mm[Hg] [employer] Other [employer] Other 08-01-2022 09:15-0400 Body height 160.02 cm Lili Scally Other [employer] Other 08-01-2022 09:15-0400 Body mass index (BMI) [Ratio] 50.62 kg/m2 Lili Scally Other [employer] Other 08-01-2022 09:15-0400 Body weight 129.64 kg Lili Scally Other [employer] Other 08-01-2022 09:15-0400 Diastolic blood pressure 84 mm[Hg] Lili Scally Other [employer] Other 08-01-2022 09:15-0400 Respiratory rate 18 /min Lili Scally Other [employer] Other 08-01-2022 09:15-0400 SaO2% (BldA) [Mass fraction] 95 % Lili Scally Other [employer] Other 08-01-2022 09:15-0400 Systolic blood pressure 130 mm[Hg] Lili Scally Other [employer] Other 06-06-2022 10:45-0400 Body height 160.02 cm Lili Scally Other [employer] Other 06-06-2022 10:45-0400 Body mass index (BMI) [Ratio] 50.43 kg/m2 Llii Scally Other [employer] Other 06-06-2022 10:45-0400 Body weight 129.14 kg Lili Scally Other [employer] Other 06-06-2022 10:45-0400 Diastolic blood pressure 76 mm[Hg] Lili Scally Other [employer] Other 06-06-2022 10:45-0400 Respiratory rate 18 /min Lili Scally Other [employer] Other 06-06-2022 10:45-0400 SaO2% (BldA) [Mass fraction] 96 % Lili Scally Other [employer] Other 06-06-2022 10:45-0400 Systolic blood pressure 131 mm[Hg] Lili Scally Other [employer] Other 03-06-2022 14:45-0500 Body height 160.02 cm Lili Scally Other [employer] Other 03-06-2022 14:45-0500 Body mass index (BMI) [Ratio] 46.81 kg/m2 Lili Scally Other [employer] Other 03-06-2022 14:45-0500 Body weight 119.89 kg Lili Scally Other [employer] Other 03-06-2022 14:45-0500 Diastolic blood pressure 72 mm[Hg] Lili Scally Other [employer] Other 03-06-2022 14:45-0500 Respiratory rate 18 /min Lili Scally Other [employer] Other 03-06-2022 14:45-0500 SaO2% (BldA) [Mass fraction] 96 % Lili Scally Other [employer] Other 03-06-2022 14:45-0500 Systolic blood pressure 112 mm[Hg] Lili Scally Other [employer] Other 10-28-2021 11:15-0400 Body height 160.02 cm Lili Scally Other [employer] Other 10-28-2021 11:15-0400 Body mass index (BMI) [Ratio] 45.49 kg/m2 Lili Scally Other [employer] Other 10-28-2021 11:15-0400 Body weight 116.48 kg Lili Scally Other [employer] Other 09-12-2022 11:15-0400 Diastolic blood pressure 83 mm[Hg] Lili Scally Other [employer] Other 10-28-2021 11:15-0400 Respiratory rate 18 /min Lili Scally Other [employer] Other 10-28-2021 11:15-0400 SaO2% (BldA) [Mass fraction] 97 % Lili Scally Other [employer] Other 10-28-2021 11:15-0400 Systolic blood pressure 133 mm[Hg] Lili Scally Other [facility] Other 07-04-2021 09:15-0400 Body height 160.02 cm Lili Scally Other [facility] Other 07-04-2021 09:15-0400 Body mass index (BMI) [Ratio] 45.79 kg/m2 Lili Scally Other [facility] Other 07-04-2021 09:15-0400 Body weight 117.26 kg Lili Scally Other [facility] Other 07-04-2021 09:15-0400 Diastolic blood pressure 83 mm[Hg] Lili Scally Other [facility] Other 07-04-2021 09:15-0400 Respiratory rate 18 /min Lili Scally Other [facility] Other 07-04-2021 09:15-0400 SaO2% (BldA) [Mass fraction] 96 % Lili Scally Other [facility] Other 07-04-2021 09:15-0400 Systolic blood pressure 125 mm[Hg] Lili Burgos Other [facility] Other 11-21-2020 10:30-0400 Body height 160.02 cm Cliffordronnie Munoz Jr. Other [facility] Other 11-21-2020 10:30-0400 Body mass index (BMI) [Ratio] 46.97 kg/m2 Cliffordronnie Munoz Jr. Other [facility] Other 11-21-2020 10:30-0400 Body weight 120.29 kg Cliffordronnie Munoz Jr. Other [facility] Other 11-21-2020 10:30-0400 Diastolic blood pressure 76 mm[Hg] Clifford Munoz Jr. Other [facility] Other 11-21-2020 10:30-0400 Respiratory rate 18 /min Cliffordronnie Munoz Jr. Other [facility] Other 11-21-2020 10:30-0400 SaO2% (BldA) [Mass fraction] 97 % Clifford Munoz Jr. Other [facility] Other 11-21-2020 10:30-0400 Systolic blood pressure 123 mm[Hg] Clifford Munoz Jr. Other [facility] Other Encounters Encounter Date Encounter Type Care Provider Facility Start: 07-20-2024 End: 07-20-2024 ambulatory LAUREN TORRES Not Available Start: 07-01-2024 End: 07-01-2024 Bamboo flowsheet Lauren Torres PA Work Phone: [facility] Start: 07-01-2024 End: 07-01-2024 Bamboo flowsheet Lauren J Brian PA Work Phone: [facility] Start: 07-01-2024 End: 07-01-2024 Postop follow up visit related to original px Lauren Bloom Brian PA Work Phone: [facility] Comment on above: S/P arthroscopy of r ight shoulder (Primary Dx) Start: 07-01-2024 End: 07-01-2024 ambulatory LAUREN TORRES Not Available Start: 06-21-2024 End: 06-21-2024 Bamboo flowsheet Lauren J Brian PA Work Phone: [facility] Start: 06-21-2024 End: 06-21-2024 Bamboo flowsheet Lauren J Brian PA Work Phone: [facility] Start: 06-21-2024 End: 06-21-2024 ambulatory LAUREN TORRES Not Available Start: 06-21-2024 End: 06-21-2024 Postop follow up visit related to original px Lauren Bloom Brian PA Work Phone: [facility] Comment on above: S/P arthroscopy of r ight shoulder (Primary Dx) Start: 06-17-2024 End: 06-17-2024 ambulatory [facility] Facility:[facility] [place] Start: 06-16-2024 End: 06-17-2024 Daniele Kohler NP Work Phone: [facility] Comment on above: Primary hypertension (CMS/HCC) Start: 06-14-2024 End: 06-14-2024 Bamboo flowsheet Jennifer Cabrera MD Work Phone: [facility] Start: 06-14-2024 End: 06-14-2024 Bamboo flowsheet Jennifer Cabrera MD Work Phone: [facility] Start: 06-14-2024 End: 06-14-2024 Office outpatient visit 25 minutes Jennifer Cabrera MD Work Phone: [facility] Comment on above: Nonrheumatic aortic valve stenosis (Primary Dx); Arthritis of left acromioclavicular joint; Preoperative clearance; Primary hypertension (CMS/HCC); Malignant neoplasm of endometrium (CMS/HCC); Stage 3a chronic kidney disease (HCC) (CMS/HCC); BMI 50.0-59.9, adult (CMS/HCC) Start: 06-14-2024 End: 06-14-2024 Preoperative state Jennifer Cabrera MD Work Phone: [facility] Start: 06-14-2024 End: 06-14-2024 ambulatory JENNIFER CABRERA Not Available Start: 06-10-2024 End: 06-10-2024 Bamboo flowsheet Lalitha Trujillo VEGETABLE INSPECTOR Work Phone: [facility] Start: 06-10-2024 End: 06-10-2024 Bamboo flowsheet Lalitha Trujillo VEGETABLE INSPECTOR Work Phone: [facility] Start: 06-10-2024 End: 06-10-2024 Office outpatient visit 15 minutes Lalitha Trujillo NP Work Phone: [facility] Comment on above: Acute laryngitis (Pr imary Dx) Start: 06-10-2024 End: 06-10-2024 ambulatory LALITHA TRUJILLO Not Available Start: 06-08-2024 End: 06-08-2024 ambulatory [facility] Start: 06-01-2024 End: 06-01-2024 ambulatory [facility] [place] Start: 05-31-2024 End: 05-31-2024 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 procedure Lauren HILL Work Phone: [facility] Comment on above: Pre-op examination ( Primary Dx) Start: 05-31-2024 End: 05-31-2024 Preprocedural examination done Lauren HILL Work Phone: [facility] Work Phone: Start: 05-31-2024 End: 05-31-2024 ambulatory LAUREN TORRES Not Available Start: 05-31-2024 End: 05-31-2024 Bamboo flowsheet Lauren Torres PA Work Phone: [facility] Start: 05-31-2024 End: 05-31-2024 Bamboo flowsheet Lauren Torres PA Work Phone: [facility] Start: 05-25-2024 End: 05-25-2024 ambulatory Pastora Ackermank VEGETABLE INSPECTOR-C Work Phone: [facility] Work Phone: Start: 05-25-2024 End: 05-25-2024 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 procedure Pastora Ackermank VEGETABLE INSPECTOR-C Work Phone: [facility] Work Phone: Start: 05-25-2024 End: 05-25-2024 ambulatory Pastora Kohler VEGETABLE INSPECTOR-C Work Phone: [facility] Work Phone: Start: 05-25-2024 End: 05-25-2024 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 procedure Pastora Ackermank VEGETABLE INSPECTOR-C Work Phone: [facility] Work Phone: Start: 05-23-2024 End: 05-23-2024 Bamboo flowsheet Blane Pino DPM Work Phone: [facility] Start: 05-23-2024 End: 05-23-2024 Bamboo flowsheet Blane Pino DPM Work Phone: [facility] Start: 05-23-2024 End: 05-23-2024 Office outpatient visit 15 minutes Blane Pino DPM Work Phone: [facility] Comment on above: Bursitis of left isaac t (Primary Dx); Acquired keratoderma; Pain in left foot; Difficulty walking Start: 05-23-2024 End: 05-23-2024 ambulatory BLANE PINO Not Available Start: 04-26-2024 End: 04-26-2024 Office outpatient visit 40 minutes Jr. Rica Rodriguez DO Work Phone: [facility] Comment on above: Acute pain of right shoulder (Primary Dx); Arthritis of right acromioclavicular joint; Biceps tendinitis, right; Partial nontraumatic tear of rotator cuff, right Start: 04-26-2024 End: 04-26-2024 ambulatory RICA KANG Not Available Start: 04-18-2024 End: 04-18-2024 Telephone encounter Lalitha Trujillo VEGETABLE INSPECTOR Work Phone: [facility] Start: 04-12-2024 End: 04-12-2024 Bamboo flowsheet Alexandra Osorio VEGETABLE INSPECTOR Work Phone: [facility] Start: 04-12-2024 End: 04-12-2024 Bamboo flowsheet Alexandra Osorio VEGETABLE INSPECTOR Work Phone: [facility] Start: 04-12-2024 End: 04-12-2024 Office outpatient visit 25 minutes Alexandra Osorio VEGETABLE INSPECTOR Work Phone: [facility] Comment on above: Type 2 diabetes livier itus with diabetic mononeuropathy, with long-term current use of insulin ([facility]) (Primary Dx); SOB (shortness of breath); Wheezing; Poorly-controlled hypertension (CMS/HCC) Start: 04-12-2024 End: 04-12-2024 Orders Only Alexandra Osorio VEGETABLE INSPECTOR Work Phone: [facility] Comment on above: Acute non-recurrent pansinusitis (Primary Dx) Start: 03-23-2024 End: 03-23-2024 Bamboo flowsheet Sean Tineo PT Work Phone: [facility] Start: 03-23-2024 End: 03-23-2024 Bamboo flowsheet Sean Tineo PT Work Phone: [facility] Start: 03-23-2024 End: 03-23-2024 ambulatory Sean Tineo PT Work Phone: [facility] Comment on above: Biceps tendinitis, r ight (Primary Dx); Impingement of right shoulder Start: 03-16-2024 End: 03-16-2024 Bamboo flowsheet Jr. Rica Nair Stepdamien DO Work Phone: [facility] Start: 03-16-2024 End: 03-16-2024 Bamboo flowsheet Jr. Rica Nair Stepanic DO Work Phone: [facility] Start: 03-16-2024 End: 03-16-2024 Office outpatient visit 25 minutes Ghulam Nair Stepdamien DO Work Phone: [facility] Comment on above: Acute pain of right shoulder (Primary Dx); Arthritis of right acromioclavicular joint; Biceps tendinitis, right Start: 03-16-2024 End: 03-16-2024 ambulatory RICA KANG Not Available Start: 2024 End: 2024 Refill Judith Patel DO Work Phone: [facility] Comment on above: Mixed hyperlipidemia (CMS/HCC) Start: 03-10-2024 End: 03-10-2024 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 procedure Pastora Kohler VEGETABLE INSPECTOR-C Work Phone: [facility] [place] [facility] Work Phone: Start: 03-10-2024 End: 03-10-2024 ambulatory Pastora Kohler VEGETABLE INSPECTOR-C Work Phone: [facility] Work Phone: Start: 03-05-2024 End: 03-05-2024 Bamboo flowsheet Alexandra Osorio VEGETABLE INSPECTOR Work Phone: [facility] Start: 03-05-2024 End: 03-05-2024 Bamboo flowsheet Alexandrakassie Osorio VEGETABLE INSPECTOR Work Phone: [facility] Start: 03-05-2024 End: 03-05-2024 Telephone encounter Alexandra Osorio VEGETABLE INSPECTOR Work Phone: [facility] Start: 03-05-2024 End: 03-05-2024 Office outpatient visit 15 minutes Alexandra Osorio VEGETABLE INSPECTOR Work Phone: [facility] Comment on above: Left leg cellulitis (Primary Dx); Type 2 diabetes mellitus with diabetic mononeuropathy, with long-term current use of insulin (CMS/HCC); Skin rash; Opioid dependence, uncomplicated (CMS/HCC) Start: 03-05-2024 End: 03-05-2024 ambulatory ALEXANDRA A HARICKYEN[place]G Not Available Start: 03-02-2024 End: 03-02-2024 Telephone encounter Lauren Torres PA Work Phone: [facility] Comment on above: MRI Concerns Start: 03-01-2024 Non-patient / Non-visit Sid Kohler VEGETABLE INSPECTOR-C [facility] Work Phone: Start: 02-29-2024 End: 02-29-2024 Office outpatient visit 25 minutes Alexandra Osorio VEGETABLE INSPECTOR Work Phone: [facility] Comment on above: Type 2 diabetes livier itus with diabetic mononeuropathy, with long-term current use of insulin (CMS/HCC) (Primary Dx); Left leg cellulitis; Morbid (severe) obesity due to excess calories (CMS/HCC); Body mass index (BMI) 50.0-59.9, adult (CMS/HCC); Type 2 diabetes mellitus with other skin complications (CMS/HCC); Bipolar disorder, unspecified (CMS/HCC) Start: 02-29-2024 End: 02-29-2024 ambulatory ALEXANDRA A HARICKYEN[place]G Not Available Start: 02-29-2024 End: 02-29-2024 Bamboo flowsheet Alexandra A [place] VEGETABLE INSPECTOR Work Phone: [facility] Start: 02-29-2024 End: 02-29-2024 Bamboo flowsheet Alexandra Osorio VEGETABLE INSPECTOR Work Phone: [facility] Start: 01-26-2024 End: 01-26-2024 Bamboo flowsheet Lauren Torres PA Work Phone: [facility] Start: 01-26-2024 End: 01-26-2024 Bamboo flowsheet Lauren Torres PA Work Phone: [facility] Start: 01-26-2024 End: 01-26-2024 Office outpatient visit 15 minutes Lauren Torres PA Work Phone: [facility] Comment on above: Acute pain of right shoulder (Primary Dx); Arthritis of right acromioclavicular joint; Internal derangement of right shoulder; History of claustrophobia Start: 01-26-2024 End: 01-26-2024 ambulatory LAUREN TORRES Not Available Start: 01-19-2024 End: 01-19-2024 Bamboo flowsheet Pastora Kohler VEGETABLE INSPECTOR Work Phone: [facility] Start: 01-19-2024 End: 01-19-2024 Bamboo flowsheet Pastora Kohler VEGETABLE INSPECTOR Work Phone: [facility] Start: 01-19-2024 End: 01-19-2024 Office outpatient visit 15 minutes Pastora Kohler VEGETABLE INSPECTOR Work Phone: [facility] Comment on above: Bronchitis (Primary Dx); 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); Wheezing Start: 01-19-2024 End: 01-19-2024 ambulatory PASTORA KOHLER Not Available Start: 01-11-2024 End: 01-13-2024 Refill Judith Patel DO Work Phone: [facility] Comment on above: Primary hypertension (CMS/HCC) Start: 01-05-2024 End: 01-05-2024 ambulatory JUDITH G AMANDA [facility] Start: 12-30-2023 End: 12-30-2023 ambulatory [facility] Work Phone: Start: 12-30-2023 End: 12-30-2023 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 Work Phone: Start: 12-29-2023 End: 12-29-2023 Bamboo flowsheet Lauren HILL Work Phone: [facility] Start: 12-29-2023 End: 12-29-2023 Bamboo flowsheet Lauren Torres PA Work Phone: [facility] Start: 12-29-2023 End: 12-29-2023 Office outpatient visit 25 minutes Lauren HILL Work Phone: [facility] Comment on above: Acute pain of right shoulder (Primary Dx); Arthritis of right acromioclavicular joint Start: 12-29-2023 End: 12-29-2023 ambulatory LAUREN TORRES Not Available Start: 12-24-2023 Non-patient / Non-visit [facility] Work Phone: Start: 12-11-2023 End: 12-11-2023 Bamboo flowsheet Lauren Torres PA Work Phone: [facility] Start: 12-11-2023 End: 12-11-2023 Bamboo flowsheet Lauren Torres PA Work Phone: [facility] Start: 12-11-2023 End: 12-11-2023 Office outpatient visit 15 minutes Lauren HILL Work Phone: [facility] Comment on above: Acute pain of left k nee (Primary Dx); History of left knee replacement Start: 12-11-2023 End: 12-11-2023 ambulatory LAUREN TORRES Not Available Start: 12-06-2023 End: 12-07-2023 Refill Judith Patel DO Work Phone: [facility] Comment on above: Primary hypertension (CMS/HCC) Start: 11-20-2023 End: 11-20-2023 Bamboo flowsheet Lauren HILL Work Phone: [facility] Start: 11-20-2023 End: 11-20-2023 Bamboo flowsheet Lauren Torres PA Work Phone: [facility] Start: 11-20-2023 End: 11-20-2023 Office outpatient visit 25 minutes Lauren HILL Work Phone: [facility] Comment on above: Acute pain of left k nee (Primary Dx); History of left knee replacement; Left hip pain Start: 11-20-2023 End: 11-20-2023 ambulatory LAUREN TORRES Not Available Start: 09-23-2023 End: 09-23-2023 ambulatory [facility] Work Phone: Start: 09-23-2023 End: 09-23-2023 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 Work Phone: Start: 09-15-2023 End: 09-15-2023 ambulatory JENNIFER CABRERA Not Available Start: 08-04-2023 End: 08-04-2023 ambulatory [facility] Start: 07-28-2023 End: 07-29-2023 ambulatory PASTORA [facility] Start: 07-23-2023 End: 07-23-2023 ambulatory JUDITH Joellen AMANDA [facility] Start: 07-16-2023 End: 07-20-2023 ambulatory [facility] Start: 07-16-2023 Encounter for other preprocedural examination LOPEZ JAMES [facility] Start: 06-30-2023 End: 06-30-2023 ambulatory [facility] Start: 06-30-2023 End: 06-30-2023 Subsequent hospital visit by physician Piotr Logan MD Work Phone: [facility] Cardiac Cath/IR Lab Comment on above: Abnormal stress test Start: 06-29-2023 End: 07-18-2023 ambulatory [facility] Start: 06-29-2023 Non-patient / Non-visit [facility] Work Phone: Start: 06-23-2023 End: 06-25-2023 ambulatory [facility] Start: 06-23-2023 Encounter for preprocedural cardiovascular examination [facility] Start: 06-18-2023 End: 06-20-2023 ambulatory [facility] Start: 06-15-2023 End: 06-15-2023 ambulatory [facility] Start: 06-04-2023 End: 06-04-2023 Telephone encounter Edwin Moreno MD Work Phone: [facility] Comment on above: Procedure (Out of ne twork) Start: 06-03-2023 End: 06-03-2023 ambulatory EDWIN MORENO [facility] Start: 06-03-2023 End: 06-03-2023 Office outpatient new 60 minutes Edwin Moreno MD Work Phone: [facility] Comment on above: Endometrial cancer ( [facility]-HCC) (Primary Dx); BMI 50.0-59.9, adult (CMS-HCC) Start: 05-22-2023 End: 05-22-2023 ambulatory Shawn Webb Work Phone: [facility] Work Phone: Start: 05-22-2023 End: 05-22-2023 Departed Referred Shawn Webb Work Phone: [facility] Start: 05-11-2023 End: 05-11-2023 ambulatory [facility] Work Phone: Start: 05-11-2023 End: 05-11-2023 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 [facility] Work Phone: Start: 04-22-2023 Non-patient / Non-visit [facility] [employer] Work Phone: Start: 04-21-2023 End: 04-21-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 [facility] Work Phone: Start: 04-07-2023 End: 04-07-2023 ambulatory DO Kalie Rumschlag Work Phone: [facility] Work Phone: Start: 04-07-2023 End: 04-07-2023 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 procedure DO Kalie Rumschlag Work Phone: [facility] Work Phone: Start: 03-04-2023 End: 03-04-2023 ambulatory Lili Burgos Other [facility] Other Start: 03-04-2023 Telephone encounter Lili Bello [facility] Start: 02-03-2023 (DM) Diabetes Lili Sequeira [facility] Start: 02-03-2023 End: 02-03-2023 ambulatory DO Kalie Rumschlag Work Phone: [facility] Other Start: 02-03-2023 End: 02-03-2023 Discharged Recurring DO Kalie Rumschlag Work Phone: [facility] Work Phone: Start: 02-03-2023 End: 02-03-2023 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 procedure DO Kalie Rumschlag Work Phone: [facility] Work Phone: Start: 01-26-2023 End: 01-26-2023 ambulatory Lili Burgos Other [facility] [employer] Other Start: 01-26-2023 Telephone encounter Lili Bello [facility] Start: 01-02-2023 End: 01-02-2023 ambulatory Lili Burgos Other [facility] [employer] Other Start: 01-02-2023 Telephone encounter Lilihebert Burgos F [place] [facility] Start: 11-26-2022 (DM) Diabetes Lili Storeyramon ds [facility] Start: 11-26-2022 End: 11-26-2022 ambulatory Lili Burgos Other [facility] [employer] Other Start: 11-25-2022 End: 11-25-2022 ambulatory Stoney Turner Other [facility] [employer] Other Start: 11-25-2022 Office outpatient ne w 30 minutes Stoney Turner [facility] Neurosurgery Start: 11-12-2022 End: 11-12-2022 ambulatory Lili Burgos Other [place] [employer] Other Start: 11-12-2022 Telephone encounter Lili daltons [facility] Start: 10-30-2022 End: 10-30-2022 Admission to same day surgery center DO Judith Amanda Work Phone: [facility] [place] [facility] Work Phone: Start: 10-30-2022 End: 10-30-2022 ambulatory DO Judith G Amanda Work Phone: [facility] Work Phone: Start: 10-09-2022 End: 10-09-2022 ambulatory Martine Tobias Other [facility] [employer] Other Start: 10-09-2022 Office outpatient vi sit 25 minutes Martine CALDERON [facility] Neurosurgery Start: 10-07-2022 End: 10-07-2022 ambulatory DO Judith Joellen Molinae Work Phone: [facility] Work Phone: Start: 10-07-2022 End: 10-07-2022 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 procedure DO Judith Amanda Work Phone: [facility] Work Phone: Start: 10-03-2022 (DM) Diabetes Lili Sequeira [facility] Start: 10-03-2022 End: 10-03-2022 ambulatory Lili Burgos Other [facility] [employer] Other Start: 10-03-2022 Registered Recurring DO Judith Amanda Work Phone: [facility] Work Phone: Start: 09-26-2022 End: 09-26-2022 ambulatory Lili Airamwinston Other [facility] [employer] Other Start: 09-26-2022 Telephone encounter Lili dalton [facility] Start: 09-19-2022 End: 09-19-2022 ambulatory DO Kalie Rumschlag Work Phone: [facility] Work Phone: Start: 09-19-2022 End: 09-19-2022 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 procedure DO Kalie Rumschlag Work Phone: [facility] Work Phone: Start: 08-18-2022 End: 08-18-2022 ambulatory DO Kalie Rumschlag Work Phone: [facility] Work Phone: Start: 08-18-2022 End: 08-18-2022 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 procedure DO Kalie Majo Work Phone: [facility] Work Phone: Start: 08-12-2022 End: 08-12-2022 ambulatory Martine Jatinder Other [facility] Other Start: 08-12-2022 Office outpatient ne w 45 minutes Martine Tobias [facility] Neurosurgery Start: 08-12-2022 Telephone encounter Lili Aubrey Ace [facility] Start: 08-05-2022 End: 08-05-2022 ambulatory Lili Airamly Other [facility] Other Start: 08-05-2022 Telephone encounter Lili Airamly F [facility] Start: 08-01-2022 (DM) Diabetes Lili Sequeira [facility] Start: 08-01-2022 End: 08-01-2022 ambulatory Lili Airamly Other [facility] Other Start: 08-01-2022 Registered Recurring DO Kalie Rumcurtislag Work Phone: [facility] Work Phone: Start: 07-22-2022 End: 07-22-2022 ambulatory Lili Airamly Other [facility] Other Start: 07-22-2022 Telephone encounter Lili Airamly [facility] [facility] [facility] Start: 07-09-2022 End: 07-09-2022 ambulatory Lili Scally Other [facility] Other Start: 07-09-2022 Telephone encounter Lili Airamly [facility] [place] [facility] Start: 07-01-2022 End: 07-02-2022 ambulatory [facility] Facility:H[facility] Start: 06-20-2022 End: 06-21-2022 [facility] Facility:[facility] Start: 06-16-2022 End: 06-16-2022 ambulatory Lili Scally Other [facility] Other Start: 06-16-2022 Telephone encounter Lili Airamly [facility] [place] [facility] Start: 06-06-2022 (DM) Diabetes Lili Scally [facility] Start: 06-06-2022 End: 06-06-2022 ambulatory Lili Scally Other [facility] Other Start: 06-03-2022 End: 06-03-2022 ambulatory NARENDRANATH LAKSHMIPATHY . Facility: Start: 05-15-2022 End: 05-16-2022 [facility] Facility: Start: 05-13-2022 End: 05-13-2022 ambulatory Lili Airamly Other [facility] Other Start: 05-13-2022 Telephone encounter Lili Airamly [facility] [facility] [facility] Start: 04-14-2022 End: 04-14-2022 ambulatory Lili Scally Other [facility] Other Start: 04-14-2022 Telephone encounter Lili Airamly [facility] [facility] [facility] Start: 04-03-2022 End: 04-03-2022 ambulatory Lili Scally Other [facility] Other Start: 04-03-2022 Telephone encounter Lili Scally [facility] [facility] [facility] Start: 03-24-2022 End: 03-24-2022 ambulatory Lili Scally Other [facility] Other Start: 03-24-2022 Telephone encounter Lili Scally [facility] [facility] [facility] Start: 03-21-2022 End: 03-21-2022 ambulatory Lili Scally Other [facility] Other Start: 03-21-2022 Telephone encounter Lili Scally [facility] [place] [facility] Start: 03-06-2022 (DM) Diabetes Lili Scally [facility] Start: 03-06-2022 End: 03-07-2022 [facility] Other Start: 02-13-2022 End: 02-14-2022 [facility] Facility: Start: 12-31-2021 End: 12-31-2021 ambulatory Lili Scally Other [facility] Other Start: 12-31-2021 Telephone encounter Lili Airamly [facility] [place] [facility] Start: 12-11-2021 [facility] Facility: Start: 11-20-2021 End: 11-20-2021 ambulatory Lili Scally Other [facility] Other Start: 11-20-2021 Telephone encounter Lili Airamly [facility] Start: 11-06-2021 End: 11-07-2021 [facility] Facility: Start: 10-28-2021 (DM) Diabetes Lili Scally [facility] Start: 10-28-2021 End: 10-28-2021 ambulatory Lili Scally Other [facility] Other Start: 09-20-2021 End: 09-20-2021 ambulatory Lili Scally Other [facility] Other Start: 09-20-2021 Telephone encounter Lili Scally [facility] Start: 09-12-2021 End: 09-12-2021 ambulatory Lili Scally Other [facility] Other Start: 09-12-2021 Telephone encounter Lili Bello [facility] Start: 08-01-2021 End: 08-02-2021 ambulatory [facility] Facility: Start: 07-22-2021 End: 07-22-2021 ambulatory Lili Burgos Other [facility] Other Start: 07-22-2021 Telephone encounter Lili [facility] Start: 07-08-2021 End: 07-08-2021 ambulatory Lili Burgos Other [facility] Other Start: 07-08-2021 Telephone encounter [facility]ili [facility] Start: 07-04-2021 (DM) Diabetes Lili Burgos [facility] Start: 07-04-2021 End: 07-04-2021 ambulatory Lili Burgos Other [facility] Other Start: 06-20-2021 End: 06-20-2021 ambulatory Clifford Munoz Other [facility] Other Start: 06-20-2021 Telephone encounter Clifford Tammy [facility] Start: 04-19-2021 End: 04-19-2021 ambulatory Clifford Munoz Other [facility] Other Start: 04-19-2021 Telephone encounter Clifford [facility] Start: 03-28-2021 End: 03-28-2021 ambulatory Clifford Munoz Other [facility] Other Start: 03-28-2021 Telephone encounter Clifford [facility]my [facility] Start: 01-29-2021 End: 01-29-2021 ambulatory Clifford Munoz Jr. Other [facility] Other Start: 01-29-2021 Telephone encounter [facility] Start: 11-27-2020 Telephone encounter [facility] Start: 11-21-2020 (DM) Diabetes Clifford Munoz Jr. [facility] Start: 09-25-2016 End: 09-26-2016 Ambulatory QUE BLAKE Facility:[facility] Start: 09-20-2016 End: 09-20-2016 Emergency department patient visit LAUREN RNOALD Facility:[facility] Start: 09-08-2016 End: 09-15-2016 Evaluation and management of inpatient QUE BLAKE Facility:[facility] Procedures Date Procedure Procedure Detail Performing Clinician Start: 03-10-2024 XR pre/post mri xray Pastora Kohler VEGETABLE INSPECTOR-C Work Phone: Start: 03-10-2024 MRI of right shoulder Pastora das VEGETABLE INSPECTOR-C Work Phone: Start: 12-29-2023 Arthrocentesis aspir&/inj interm jt/burs w/o us Lauren HILL Work Phone: Start: 12-29-2023 Radex shoulder complete minimum 2 views Lauren HILL Work Phone: Start: 09-15-2023 Mammography Lauren HILL Work Phone: Start: 07-28-2023 H/O: section History of 3 sections Alexandra Osorio VEGETABLE INSPECTOR Work Phone: Start: 06-15-2023 Microscopic observation [Identifier] in Cervix by Cyto stain Piotr Logan MD Work Phone: Start: 10-30-2022 Lumbosacral myelography DO Judith Amanda Work Phone: Start: 10-07-2022 Dual energy [facility] Work Phone: Start: 09-19-2022 MR lumbar spine wo con DO Kalie villegas Work Phone: Start: 08-18-2022 X-ray of lumbar [...] 06-14-2028 Screening for malignant neoplasm of cervix [facility] Start: 06-14-2026 Screening for malignant neoplasm of cervix Pap smear [facility] Start: 05-04-2025 Glaucoma screening Diabetes: Retinopathy Screening [facility] Start: 03-01-2025 Urine screening for protein Diabetes: Urine Protein Screening [facility] Start: 10-17-2024 Influenza vaccination Influenza Vaccine (Season Ended) [facility] Start: 09-14-2024 Screening for malignant neoplasm of breast Mammogram [facility] Start: 08-24-2024 Hemoglobin A1c measurement Diabetes: Hemoglobin A1C [facility] Start: 07-20-2024 End: 07-20-2024 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 procedure 07/20/2024 8:30 AM EDT Office Visit [facility] [address] [place] [phone] Lauren Torres PA [address] [facility] [address] [place] [address] [facility] Start: 07-01-2024 End: 07-01-2024 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 procedure [facility] Comment on above: S/P arthroscopy of right shoulder (Prima ry Dx) Start: 06-28-2024 Hemoglobin A1c measurement A1C test (Diabetic or Prediabetic) [facility] Start: 06-28-2024 Lipid panel Lipids [facility] Start: 06-14-2024 End: 06-14-2026 Echocardiogram 2D complete Echocardiogram 2D complete Echocardiography Routine Nonrheumatic aortic valve stenosis Expected: 06/14/2024 (Approximate), Expires: 06/14/2026 [facility] Work Phone: Comment on above: Expected: 06/14/2024 (Approximate), Expi res: 06/14/2026 Start: 06-14-2024 End: 06-14-2024 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 procedure 06/14/2024 10:00 AM EDT Office Visit [facility] [address] [place] [phone] Jennifer Cabrera MD [address] [facility] [place] [address] Arrived [facility] Comment on above: Arrived Start: 06-10-2024 End: 06-10-2024 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 procedure 06/10/2024 11:30 AM EDT Office Visit [facility] [address] [place] [phone] Lalitha Trujillo NP [address] [facility] [place] [address] Arrived [facility] Comment on above: Arrived Start: 06-09-2024 End: 06-09-2024 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 procedure 06/09/2024 2:45 PM EDT Procedure Visit [facility] [address] [place] [phone] Blane Pino DPM [address] [place] [address] [facility] Start: 06-02-2024 Adult BMI Screening Adult BMI Screening [facility] Start: 06-02-2024 Tobacco Screening Tobacco Screening [facility] Start: 05-31-2024 End: 05-31-2024 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 procedure [facility] Comment on above: Pre-op examination (Primary Dx) Start: 05-23-2024 End: 05-23-2024 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 procedure 05/23/2024 1:30 PM EDT Office Visit [facility] [address] [place] [phone] Blane Pino, DPM [address] [place], [place] [phone] Arrived [facility] Comment on above: Arrived Start: 05-13-2024 Medicare Annual Wellness (AWV) Medicare Annual Wellness (AWV) [facility] Start: 05-04-2024 Hemoglobin A1c measurement Diabetes: Hemoglobin A1C [facility] Start: 04-26-2024 End: 04-26-2024 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 procedure 04/26/2024 8:45 AM EDT Office Visit [facility] [address] [facility] [place] [phone] Jr. Rica Rodriguez, DO [address] [address] [facility] Start: 04-21-2024 Urine screening for protein Diabetes: Urine Protein Screening [facility] Start: 04-12-2024 End: 04-12-2025 XR Chest 2 Views [facility] Work Phone: Comment on above: Expected: 04/12/2024, Expires: Start: 04-12-2024 End: 04-12-2024 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 procedure 04/12/2024 11:00 AM EST Office Visit [facility] [address] [place] [phone] Alexandra Osorio VEGETABLE INSPECTOR [address] [place] [address] Arrived [facility] Comment on above: Arrived Start: 03-23-2024 End: 03-23-2024 ambulatory 03/23/2024 9:00 AM EST Evaluation [facility] [address] [place] [phone] Sean Tineo, PT [address] [place], [place] [phone] Biceps tendinitis, right [facility] Comment on above: Biceps tendinitis, right Start: 03-18-2024 End: 03-18-2024 ambulatory 03/18/2024 2:00 PM EST Evaluation [facility] [address] [place] [phone] Sean Tineo, PT [address] [place] [address] [facility] Start: 03-16-2024 End: 03-16-2024 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 procedure [facility] Comment on above: Acute pain of right shoulder (Primary Dx ); Arthritis of right acromioclavicular joint; Biceps tendinitis, right Start: 03-05-2024 End: 03-05-2024 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 procedure 03/05/2024 9:00 AM EST Office Visit [facility] [address] [facility] [place] [phone] Alexandra Osorio VEGETABLE INSPECTOR [address] [facility] [place] [address] Arrived [facility] Comment on above: Arrived Start: 03-03-2024 End: 03-03-2024 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 procedure 03/03/2024 9:30 AM EST Office Visit [facility] [address] [facility] [place] [phone] Alexandra Osorio VEGETABLE INSPECTOR [address] [facility] [place] [address] [facility] Start: 03-02-2024 End: 03-02-2024 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 procedure 03/02/2024 9:30 AM EST Office Visit [facility] [address] [place] [phone] Jr. Rica Rodriguez, DO [address] [place] [address] [facility] Start: 02-29-2024 End: 02-29-2024 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 procedure 02/29/2024 4:30 PM EST Office Visit [facility] [address] [place] [phone] Alexandra Osorio NP [address] [place] [address] Arrived [facility] Comment on above: Arrived Start: 02-23-2024 End: 02-23-2024 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 procedure 02/23/2024 10:00 AM EST Office Visit [facility] [address] [place] [phone] Lauren Torres PA [address] [facility] [address] [place] [address] [facility] Start: 01-26-2024 End: 01-26-2024 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 procedure 01/26/2024 10:15 AM EST Office Visit [facility] [address] [place] [phone] Lauren Torres PA [address] [facility] [address] [place] [address] Acute pain of right shoulder (Primary Dx); Arthritis of right acromioclavicular joint [facility] Comment on above: Acute pain of right shoulder (Primary Dx ); Arthritis of right acromioclavicular joint Start: 01-22-2024 End: 01-22-2024 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 procedure 01/22/2024 10:15 AM EST Office Visit [facility] [address] [place] [phone] Lauren Torres PA [address] [facility] [address] [place] [address] [facility] Start: 01-19-2024 End: 01-19-2024 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 procedure 01/19/2024 11:30 AM EST Office Visit [facility] [address] [place] [phone] Pastora Kohler NP [address] [place], [place] [phone] Arrived [facility] Comment on above: Arrived Start: 12-11-2023 End: 12-11-2023 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 procedure [facility] Comment on above: Acute pain of left knee (Primary Dx) Start: 11-20-2023 End: 11-20-2023 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 procedure 11/20/2023 9:00 AM EDT Office Visit [facility] [address] [facility] [place] [phone] Lauren Torres PA [address] [address] Acute pain of left knee (Primary Dx) [facility] Comment on above: Acute pain of left knee (Primary Dx) Start: 10-18-2023 Influenza vaccination [facility] Start: 10-16-2023 Hemoglobin A1c measurement Diabetes: Hemoglobin A1C [facility] Start: 06-30-2023 End: 06-30-2023 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 procedure 06/30/2023 8:30 AM EDT Office Visit Liz L [facility] [address] [place] [phone] Nishi Pradhan PA [address] [place] [address] Liz Deal [facility] Start: 06-15-2023 End: 06-15-2023 Admission to same day surgery center 06/15/2023 2:00 PM EDT - 06/15/2023 4:30 PM EDT Surgery [facility] [address] [place] [phone] Edwin Moreno MD [address] [facility] [place] [address] DAVINCI HYSTERECTOMY SALPINGO OOPHORECTOMY [facility] Comment on above: DAVINCI HYSTERECTOMY SALPINGO OOPHORECTO MY Start: 06-15-2023 End: 06-15-2023 DAVINCI DISSECTION LYMPH NODE PELVIC SENTINEL DAVINCI DISSECTION LYMPH NODE PELVIC SENTINEL ENDOMETRIAL CANCER 06/15/2023 2:00 PM EDT [facility] Start: 06-15-2023 End: 06-15-2023 DAVINCI HYSTERECTOMY SALPINGO OOPHORECTOMY DAVINCI HYSTERECTOMY SALPINGO OOPHORECTOMY ENDOMETRIAL CANCER 06/15/2023 2:00 PM EDT [facility] Start: 06-15-2023 Subsequent hospital visit by physician 06/15/2023 2:00 PM EDT Hospital Encounter [facility] Surgery [facility] [place] [phone] Edwin Moreno MD [address] [place] [address], [address] [place] [address] [facility] Start: 06-05-2023 End: 06-05-2023 Admission to establishment 06/05/2023 2:45 PM EDT [facility] On [address] [phone] [facility] On [facility] Start: 02-16-2023 Annual Wellness Visit (Medicare Advantage) Annual Wellness Visit (Medicare Advantage) [facility] Start: 01-16-2023 COVID-19 Vaccine ( season) COVID-19 Vaccine ( season) [facility] Start: 10-30-2022 [facility] Start: 10-30-2022 Computerized axial tomography of lumbar spine with contrast [facility] Start: 02-14-2021 Screening for malignant neoplasm of breast Breast cancer screen [facility] Start: 2020 Respiratory Syncytial Virus (RSV) or age 60 yrs+ (1 - 1-dose 60+ series) Respiratory Syncytial Virus (RSV) or age 60 yrs+ (1 - 1-dose 60+ series) [facility] Start: 2010 Administration of varicella zoster vaccine Zoster (Shingles) Vaccine (1 of 2) [facility] Start: 2010 Shingles vaccine (1 of 2) Shingles vaccine (1 of 2) [facility] [employer] Start: 2005 Screening for malignant neoplasm of colon [facility] Start: 1981 Screening for malignant neoplasm of cervix Pap Smear [facility] Start: 1979 Administration of varicella zoster vaccine Zoster (Shingles) Vaccine (1 of 2) [facility] Start: 1979 DTaP,Tdap and Td Vaccines (1 - Tdap) DTaP,Tdap and Td Vaccines (1 - Tdap) [facility] Start: 1979 DTaP/Tdap/Td vaccine (1 - Tdap) DTaP/Tdap/Td vaccine (1 - Tdap) [facility] [employer] Start: 1979 Urine screening for protein Diabetes: Urine Protein Screening [facility] Start: 1978 Adult BMI Follow Up Plan Adult BMI Follow Up Plan [facility] Start: 1978 GFR test (Diabetes, CKD 3-4, OR last GFR 15-59) GFR test (Diabetes, CKD 3-4, OR last GFR 15-59) [facility] Start: 1978 Glaucoma screening Diabetic retinal exam [facility] [employer] Start: 1978 Hepatitis C screening Hepatitis C screen [facility] [employer] Start: 1978 Urine screening for protein Diabetic Alb to Cr ratio (uACR) test [facility] [employer] Start: 1975 HIV screening HIV screen [facility] [employer] Start: 1972 Depression Monitoring Depression Monitoring [facility] [employer] Start: 1972 Depression Screening Depression Screening [facility] Start: 1970 Diabetic foot examination Diabetic foot exam [facility] Start: 1966 Pneumococcal 0-64 years Vaccine (1 of 2 - PCV) Pneumococcal 0-64 years Vaccine (1 of 2 - PCV) [facility] [employer] Start: 1960 Medicare Annual Wellness (AWV) Medicare Annual Wellness (AWV) [facility] Start: 1960 Screening for malignant neoplasm of colon [facility] Comprehensive metabo lic 2000 panel - Serum or Plasma [facility] Oxygen therapy [Mini mum Data Set] Initiate Oxygen Therapy Protocol Respiratory Care Routine As Needed until discontinued starting 06/30/2023 [facility] Comment on above: As Needed until discontinued starting Oxygen therapy [Mini mum Data Set] Initiate Oxygen Therapy Protocol Respiratory Care Routine As Needed until discontinued starting 06/30/2023 [facility] Comment on above: As Needed until discontinued starting Patient Education [facility] Work Phone: End: 06-26-2023 Percutaneous coronary intervention [facility] Work Phone: Comment on above: One Time [...] AM EDT [facility] Work Phone: [facility] Immunizations Immunization Date Immunization Notes Care Provider Fa [facility] 11-21-2022 influenza virus vaccine, unspecified formulation Edwin Moreno MD Work Phone: [facility] 11-21-2022 influenza, injectabl e, quadrivalent, preservative free Lauren HILL Work Phone: [facility] 11-21-2022 SARS-COV-2 (COVID-19 ) vaccine, mRNA, spike protein, LNP, PF, 50 mcg/0.5 mL Lauren HILL Work Phone: [facility] 02-26-2022 influenza virus vaccine, unspecified formulation Piotr Logan MD Work Phone: [facility] 02-26-2022 influenza, injectabl e, quadrivalent, preservative free Lauren HILL Work Phone: [facility] 06-12-2020 COVID-19 Vaccine Moderna - Documentation Purposes Only Clifford Munoz Jr. Other [facility] 05-15-2020 COVID-19 Vaccine Moderna - Documentation Purposes Only Clifford Munoz Jr. Other [facility] 12-09-2016 influenza virus vaccine, unspecified formulation Piotr Logan MD Work Phone: [facility] 12-09-2016 influenza, injectabl e, quadrivalent, preservative free Lauren HILL Work Phone: [facility] 10-17-2016 influenza virus vaccine, unspecified formulation Piotr Logan MD Work Phone: [facility] 01-03-2015 influenza virus vaccine, unspecified formulation Piotr Logan MD Work Phone: [facility] 01-03-2015 influenza, seasonal, injectable, preservative free Lauren HILL Work Phone: [facility] 01-03-2014 influenza virus vaccine, unspecified formulation Piotr Logan MD Work Phone: [facility] 01-03-2014 influenza, seasonal, injectable Lauren HILL Work Phone: [facility] Payers Date Payer Category Payer Self-pay [id number] 2022 Medicare (Managed Care) [employer] [id number] 2022 Unknown [employer] AARP O [employer] AARP [id number] 2022-Present [address] [address] [place] [address] [id number] .7.3.559410.315 2021 Unknown [id number] 2021 Medicare [id number]. [id number] .[id number] 2017 Medicare [id number] 2.16.840.1.085287.19 1960 Unknown [id number] 2.16.840.1.522735.3.579.2 .593 1960 Unknown [id number] 2.16.840.1.954072.3.579.2 .593 1960 Unknown [id number] 2.16.840.1.405909.3.579.2 .593 1960 Unknown [id number] 2.16.840.1.275597.3.579.2 .593 1960 Unknown [id number] 2.16.840.1.360943.3.579.2 .593 1960 Unknown [id number] 2.16.840.1.332496.3.579.2 .593 1960 Unknown [id number] 2.16.840.1.647466.3.579.2 .593 1960 Unknown [id number] 2.16.840.1.902153.3.579.2 .593 1960 Unknown [id number] 2.16.840.1.610662.3.579.2 .593 1960 Unknown [id number] 2.16.840.1.866178.3.579.2 .1286 1960 Unknown [id number] 2.16.840.1.934843.3.579.2 .173 1960 Unknown [id number] 2.16.840.1.095702.3.579.2 .175 1960 Unknown [id number] 2.16.840.1.042756.3.579.2 .175 1960 Unknown [id number] 2.16.840.1.339804.3.579.2 .175 1960 Unknown [id number] 2.16.840.1.133822.3.579.2 .175 1960 Unknown [id number] 2.16.840.1.257294.3.579.2 .175 1960 Unknown [id number] 2.16.840.1.457613.3.579.2 .175 1960 Unknown [id number] 2.16.840.1.090818.3.579.2 .175 1960 Unknown [id number] 2.16.840.1.740172.3.579.2 .175 1960 Unknown [id number] 2.16.840.1.267671.3.579.2 .175 1960 Unknown [id number] 2.16.840.1.469346.3.579.2 .175 1960 Unknown [id number] 2.16.840.1.455422.3.579.2 .1286 1960 Unknown [id number] 2.16.840.1.765982.3.579.2 .1286 1960 Unknown [id number] 2.16.840.1.621012.3.579.2 .1286 1960 Unknown [id number] 2.16.840.1.730710.3.579.2 .1286 1960 Unknown [id number] 2.16.840.1.123179.3.579.2 .718 1960 Unknown [id number] 2.16.840.1.500211.3.579.2 .718 1960 Unknown [id number] 2.16.840.1.610426.3.579.2 .1259 1960 Unknown [id number] 2.16.840.1.791214.3.579.2 .1259 1960 Unknown [id number] 2.16.840.1.712912.3.579.2 .125 1960 Unknown [id number] 2.16.840.1.661581.3.579.2 .125 1960 Unknown [id number] 2.16.840.1.060096.3.579.2 .125 1960 Unknown [id number] 2.16.840.1.526339.3.579.2 .125 1960 Unknown [id number] 2.16.840.1.923044.3.579.2 .1258 1960 Unknown [id number] 2.16.840.1.720817.3.579.2 .125 1960 Unknown [id number] 2.16.840.1.300136.3.579.2 .1259 1960 Unknown [id number] 2.16.840.1.185751.3.579.2 .1259 1960 Unknown [id number] 2.16.840.1.955941.3.579.2 .125 1960 Unknown [id number] 2.16.840.1.317006.3.579.2 .1259 1960 Unknown [id number] 2.16.840.1.498856.3.579.2 .1259 1960 Unknown [id number] 2.16.840.1.678170.3.579.2 .1258 1960 Unknown [id number] 2.16.840.1.978328.3.579.2 .1258 1960 Unknown [id number] 2.16.840.1.512596.3.579.2 .1258 1960 Unknown [id number] 2.16.840.1.896557.3.579.2 .1258 1960 Unknown [id number] 2.16.840.1.065186.3.579.2 .1258 1960 Unknown [id number] 2.16.840.1.547532.3.579.2 .1258 1960 Unknown [id number] 2.16.840.1.261560.3.579.2 .1258 1960 Unknown [id number] 2.16.840.1.505400.3.579.2 .1258 1960 Unknown [id number] 2.16.840.1.079247.3.579.2 .1258 1960 Unknown [id number] 2.16.840.1.359983.3.579.2 .9 1959 Medicare [id number] 2.16.840.1.350035.19 1959 Private Health Insurance [id number] Medicare [id number] 2.16.840.1.613939.19 Unknown Alexis BC/LUKE [id number] Unknown [id number] 2.16.840.1.994561.3.579.2 .531 Unknown [id number] 2.16840.1.677175.3.579.2 .531 Social History Date Type Detail Facility Unknown if ever smoked [facility] Other Start: 06-15-2023 End: 06-14-2024 Sex Assigned At [facility] Work Phone: Start: 01-03-2021 End: 05-11-2023 Tobacco smoking status NHIS Ex-smoker (finding) [facility] Start: 1960 Sex Assigned At Female [facility] End: 06-20-2010 History of tobacco use Current smoker [facility] End: 06-20-2010 History of tobacco use Cigarette Smoker [facility] Start: 11-03-2022 End: 06-15-2023 Tobacco use and exposure Smokeless tobacco non-user [facility] Start: 06-30-2023 End: 06-21-2024 Alcohol intake Ex-drinker (finding) [employer] [facility] Start: 06-15-2023 End: 06-14-2024 History of Social function [facility] Work Phone: Start: 1960 Sex Assigned At Not on file [facility] Start: 11-03-2022 Tobacco smoking status [facility] Never smoked tobacco [facility] Start: 10-30-2022 Alcohol Comment caffeine: 3-4 cups per day [facility] Start: 12-30-2023 End: 05-26-2024 Sex Female (finding) [facility] Start: 06-03-2023 Alcoholic beverage intake Lifetime non-drinker (finding) [facility] Childcare Unknown [facility] Start: 04-12-2024 Alcohol Comment caffeine: 2 cu ps per day [facility] Start: 06-10-2024 Alcohol Comment caffeine: 2-3 cups per day [facility] NEGATED: Highlighted rowStart: NINF History of tobacco use Passive smoker [facility] [employer] Medical Equipment Procedure Code Equipment Code Equipment Origin al Text Equipment Identifier Dates Arthroplasty, knee, total, minimally invasive Orthopaedic cement, non-medicated ()[id number] FDA Start: 01-03-2021 Arthroplasty, knee, total, minimally invasive Uncoated knee femur prosthesis ()[id number] FDA Start: 01-03-2021 Arthroplasty, knee, total, minimally invasive Tibial insert ()[id number] FDA Start: 01-03-2021 Arthroplasty, knee, total, minimally invasive Polyethylene patella prosthesis ()[id number] FDA Start: 01-03-2021 Arthroplasty, knee, total, minimally invasive Uncoated knee tibia prosthesis, metallic ()[id number] ()[id number] FDA Start: 01-03-2021 [id number] Start: 01-29-2021 Blood Sugar Diagnostic (Accu-Chek Guide [...] ek Fastclix Lancet Drum) misc Start: 08-03-2023 Pen Needle, Diab etic 32 gauge x 1/4 needle Start: 05-02-2024 Blood Sugar Diagnostic (Accu-Chek Guide Test Strips) strip Start: 05-06-2023 End: 05-06-2023 Blood Sugar Diagnostic (Accu-Chek Guide Test Strips) strip Start: 05-06-2023 End: 08-03-2023 Lancets (Accu-Ch ek Fastclix Lancet Drum) misc Start: 08-03-2023 End: 08-03-2023 Pen Needle, Diab etic 32 gauge x 1/4 needle Start: 05-02-2024 End: 05-02-2024 Blood Sugar Diagnostic (Accu-Chek Guide Test Strips) strip Start: 08-03-2023 Lancets (Accu-Ch ek Fastclix Lancet Drum) misc Start: 08-03-2023 Pen Needle, Diab etic 32 gauge x 1/4 needle Start: 05-02-2024 Blood Sugar Diagnostic (Accu-Chek Guide Test Strips) strip Start: 05-06-2023 End: 05-06-2023 Blood Sugar Diagnostic (Accu-Chek Guide Test Strips) strip Start: 05-06-2023 End: 08-03-2023 Lancets (Accu-Ch ek Fastclix Lancet Drum) misc Start: 08-03-2023 End: 08-03-2023 Pen Needle, Diab etic 32 gauge x 1/4 needle Start: 05-02-2024 End: 05-02-2024 Functional Status Date Assessment Result Facility 06-14-2024 Patient [facility] ionnaire 2 item (PHQ-2) [Reported] [facility] Clinical Notes 11-21-2020 to 07-01-2024 SERGIO Iglesias - 07/01/2024 10:00 AM EDTPatient InstructionsMaSERGIO Lowery - 06/21/2024 11:15 AM EDTTelephone Encounter - Ilan Mar NP - 06/16/2024 12:53 PM EDT Note Date & Type Note Facility 07-01-2024 History of Present illness Narrative Images from the original note were not included. Orthopedic Office note: NAME: Lesli Clay : 1960 EST PT S/P RT SHOULDER SCOPE 06/17/24 (2WKS) SUSIE- DOING WELL- NOTES SOME DISCOMFORT- WEARING SLING- +PERCOCET; WILL NEED A REFILL- SUTURES REMOVED WITHOUT DIFFICULTY Right Shoulder Exam Tenderness The patient is experiencing no tenderness (compartments soft). Range of Motion Right shoulder passive abduction: gentle pendulums easily. Muscle Strength Right shoulder normal muscle strength: Fires deltoid and rotator cuff, pendulums easily. Other Erythema: absent Scars: present (Portals well healing, sutures removed, no erythema, drainge or discharge, no dehisence) Sensation: normal Pulse: present Comments: The operative upper extremity was noted to be neurovascularly unchanged. Sensation to light touch was intact to all dermatomes to operative upper extremity. Radial and ulnar pulses were present and equal bilaterally. Patient was able to motor elbow wrist and fingers in all anatomic planes with 5 out of 5 strength on the operative upper extremity. Compartments were soft to operative upper extremity. There was no evidence of infection or ascending lymphangitis to operative extremity. No orders of the defined types were placed in this encounter. Procedures Results ICD-10-CM 1. S/P arthroscopy of right shoulder Z98.890 S/p Biceps tenodesis and SAD Assessment & Plan HEP discussed. Pt declines formal therapy with $25 dollar co pay.. pt verbalized hep for PROM, no AROM no strengthenign and no lifting.. Pain improving.. Will use sling with activity. May remove while seated.. pt thankful. Spouse will call for therapy order if pt not doing HEP as discussed.. pt pleased with progress. Questions answered in laymen terms at the bedside. The diagnosis, home exercise plan and any ongoing restrictions/ recommendations reviewed. If unable to be reached in office, I recommend evaluation at nearest Emergency Room if any symptoms worsened or new symptoms develop for requiring urgent evaluation. Visit was preformed using [employer]-pilot safety inspector speech recognition. documented in this encounter [facility] 07-01-2024 Instructions SERGIO Iglesias - 07/01/2024 10:00 AM EDT Discussed patient being 2 wks s/p Biceps tenodesis, SAD, surgery: surgery discussed at bedside. Continue in sling until follow up to protect repair. ( 6 wks post op) May remove sling to shower and change clothing. Also remove sling 2- 3 times a day to continue home exercises for hand, wrist and elbow range of motion. No weight in operative arm. No lifting anything heavier than coffee cup. Referral for Therapy given/sent electronically, please call Therapy facility to schedule as soon as possible documented in this encounter [facility] 06-21-2024 History of Present illness Narrative Images from the original note were not included. Orthopedic Office note: NAME: Lesli Clay : 1960 *UNSCHEDULED* SLING ISSUE - UNABLE TO GET PILLOW BACK ON- THINKS SLING ISN'T RIGHT. (EST PT) PO S/P RT SHOULDER SCOPE 06/17/24 (4 DAYS) @ [facility]. WEARING ULTRA SLING. PAIN IN SHOULDER. +PERCOCET. +ICE. DOES NOT WAKES AT HS. TOOK BANDAGES OFF TODAY, HAS BANDAIDS COVERING INCISIONS. Right Shoulder Exam Tenderness The patient is experiencing no tenderness (compartments soft). Range of Motion Right shoulder passive abduction: gentle pendulums easily. Muscle Strength Right shoulder normal muscle strength: Fires deltoid and rotator cuff, pendulums easily. Other Erythema: absent Scars: present (Portals well healing, bandaids present. no erythema, drainge or discharge, no dehisence) Sensation: normal Pulse: present Comments: The operative upper extremity was noted to be neurovascularly unchanged. Sensation to light touch was intact to all dermatomes to operative upper extremity. Radial and ulnar pulses were present and equal bilaterally. Patient was able to motor elbow wrist and fingers in all anatomic planes with 5 out of 5 strength on the operative upper extremity. Compartments were soft to operative upper extremity. There was no evidence of infection or ascending lymphangitis to operative extremity. No orders of the defined types were placed in this encounter. Procedures Results ICD-10-CM 1. S/P arthroscopy of right shoulder Z98.890 S/p Biceps tenodesis and SAD/ Assessment & Plan 1. Sling adjustment. She had her sling refitted and notes that it feels much better. Discussed ongoing precautions, not to do any active motion such as lifting, pushing, or pulling, no weight in the right arm. She is to wear the sling daily, may remove to shower and dress and do home exercises with elbow, hand and wrist range of motion exercises discussed. She notes the sling to be well fitting at this time and will keep follow-up for first postop as previously discussed. She is thankful. Follow-up: She will keep follow-up for first postop as previously discussed. PROCEDURE Procedure Performed Subacromial decompression and biceps tenodesis Sling well fitting, neuro vasc intact with good alignment and support of right shoulder s/p application. able to help pt re-apply. Questions answered in laymen terms at the bedside. The diagnosis, home exercise plan and any ongoing restrictions/ recommendations reviewed. If unable to be reached in office, I recommend evaluation at nearest Emergency Room if any symptoms worsened or new symptoms develop for requiring urgent evaluation. Visit was preformed using [employer] safety inspector speech recognition. documented in this encounter [facility] 06-20-2024 Note [id number] [facility] 06-17-2024 Note [facility] SURGERY Clinical Discharge Summary PERSON INFORMATION Name LESLI CLAY Age 64 Years 1960 Sex FEMALE Language Bhutanese PCP JENNIFER CABRERA Marital Status Phone Med Service Ambulatory Surgery Acct# Arrival 06/17/2024 10:32:36 Visit Reason SURGERY - RIGHT SHOULDER ARTHROSCOPY WITH ROTATOR CUFF REPAIR AND BICEP TENODESIS Acuity LOS 052 05:37 Address: [address] [place] [id number] Comment: PROVIDER INFORMATION VITALS INFORMATION Vital Sign Triage Latest Temp Oral Temp Temporal Temp Intravascular Temp Axillary Temp Rectal 02 Sat 87 % 95 % Respiratory Rate Peripheral Pulse Rate Apical Heart Rate Blood Pressure / 123 mmHg / 78 mmHg Comment: MEDICAL INFORMATION Allergy Info: No known allergies Prescriptions Given: acetaminophen-oxycodone (acetaminophen-oxycodone 325 mg-7.5 mg oral tablet) 1 tab(s) Oral (given by mouth) 3 times per day as needed as needed for pain. ARIPiprazole (ARIPiprazole 15 mg oral tablet) 1 tab(s) Oral (given by mouth) every day. atorvastatin (atorvastatin 40 mg oral tablet) 1 tab(s) Oral (given by mouth) every day. buPROPion (buPROPion 300 mg/24 hours (XL) oral tablet, extended release) 1 tab(s) Oral (given by mouth) every day. hydrochlorothiazide-losartan (hydrochlorothiazide-losartan 12.5 mg-50 mg oral tablet) 1 tab(s) Oral (given by mouth) every day. hydrOXYzine (hydrOXYzine hydrochloride 25 mg oral tablet) 1 tab(s) Oral (given by mouth) every day. insulin degludec (Tresiba 100 units/mL subcutaneous solution) 44 unit(s) Subcutaneous (under the skin) every day. metFORMIN (metFORMIN 1000 mg oral tablet) 1 tab(s) Oral (given by mouth) 2 times per day. metoprolol (Metoprolol Tartrate 25 mg oral tablet) 1 tab(s) Oral (given by mouth) 2 times per day. nortriptyline (nortriptyline 50 mg oral capsule) 3 cap(s) Oral (given by mouth) 3 times per day. pregabalin (pregabalin 100 mg oral capsule) 1 cap(s) Oral (given by mouth) 3 times per day. semaglutide (Ozempic 8 mg/3 mL (2 mg dose) subcutaneous solution) Subcutaneous (under the skin) Every Thursday. INJECT 2 MG UNDER THE SKIN ONE DAY A WEEK EVERY WEEK. tiZANidine (tiZANidine 4 mg oral capsule) 1 cap(s) Oral (given by mouth) At bedtime. Medication List: Medications to Continue That Have Not Changed Other Medications acetaminophen-oxycodone (acetaminophen-oxycodone 325 mg-7.5 mg oral tablet) 1 tab(s) Oral (given by mouth) 3 times per day as needed as needed for pain. ARIPiprazole (ARIPiprazole 15 mg oral tablet) 1 tab(s) Oral (given by mouth) every day. atorvastatin (atorvastatin 40 mg oral tablet) 1 tab(s) Oral (given by mouth) every day. buPROPion (buPROPion 300 mg/24 hours (XL) oral tablet, extended release) 1 tab(s) Oral (given by mouth) every day. hydrochlorothiazide-losartan (hydrochlorothiazide-losartan 12.5 mg-50 mg oral tablet) 1 tab(s) Oral (given by mouth) every day. hydrOXYzine (hydrOXYzine hydrochloride 25 mg oral tablet) 1 tab(s) Oral (given by mouth) every day. insulin degludec (Tresiba 100 units/mL subcutaneous solution) 44 unit(s) Subcutaneous (under the skin) every day. metFORMIN (metFORMIN 1000 mg oral tablet) 1 tab(s) Oral (given by mouth) 2 times per day. metoprolol (Metoprolol Tartrate 25 mg oral tablet) 1 tab(s) Oral (given by mouth) 2 times per day. nortriptyline (nortriptyline 50 mg oral capsule) 3 cap(s) Oral (given by mouth) 3 times per day. pregabalin (pregabalin 100 mg oral capsule) 1 cap(s) Oral (given by mouth) 3 times per day. semaglutide (Ozempic 8 mg/3 mL (2 mg dose) subcutaneous solution) Subcutaneous (under the skin) Every Thursday. INJECT 2 MG UNDER THE SKIN ONE DAY A WEEK EVERY WEEK. tiZANidine (tiZANidine 4 mg oral capsule) 1 cap(s) Oral (given by mouth) At bedtime. Medications to Continue That Have Not Changed Other Medications acetaminophen-oxycodone (acetaminophen-oxycodone 325 mg-7.5 mg oral tablet) 1 tab(s) Oral (given by mouth) 3 times per day as needed as needed for pain. ARIPiprazole (ARIPiprazole 15 mg oral tablet) 1 tab(s) Oral (given by mouth) every day. atorvastatin (atorvastatin 40 mg oral tablet) 1 tab(s) Oral (given by mouth) every day. buPROPion (buPROPion 300 mg/24 hours (XL) oral tablet, extended release) 1 tab(s) Oral (given by mouth) every day. hydrochlorothiazide-losartan (hydrochlorothiazide-losartan 12.5 mg-50 mg oral tablet) 1 tab(s) Oral (given by mouth) every day. hydrOXYzine (hydrOXYzine hydrochloride 25 mg oral tablet) 1 tab(s) Oral (given by mouth) every day. insulin degludec (Tresiba 100 units/mL subcutaneous solution) 44 unit(s) Subcutaneous (under the skin) every day. metFORMIN (metFORMIN 1000 mg oral tablet) 1 tab(s) Oral (given by mouth) 2 times per day. metoprolol (Metoprolol Tartrate 25 mg oral tablet) 1 tab(s) Oral (given by mouth) 2 times per day. nortriptyline (nortriptyline 50 mg oral capsule) 3 cap(s) Oral (given by mouth) 3 times per day. pregabalin (pregabalin 100 mg (more content not included)... [facility] [place] 06-16-2024 Telephone encounter Note PDMP reviewed. Patient takes 7.5mg oxycodone 3x a day. [facility] Work Phone: 06-16-2024 Miscellaneous Notes PDMP reviewed. Patient takes 7.5mg oxycodone 3x a day. documented in this encounter [facility] 06-14-2024 History of Present illness Narrative Images from the original note were not included. Lesli Clay is a 64 y.o. female presents with chief complaint of Rt shoulder replacement 06/17/24 at [facility]. EKG and labs done on 06/01/24. HPI: HPI History of Present Illness The patient presents for a preoperative evaluation for shoulder replacement surgery. She is scheduled for a shoulder replacement and has completed all necessary preoperative testing at the hospital. No chest pain or shortness of breath is reported. An active lifestyle is maintained at home, engaging in housework such as vacuuming and walking as needed. No chest pain or respiratory distress occurs during these activities. However, difficulty standing in one spot for extended periods due to pain is noted. A history of endometrial carcinoma, which was surgically excised in 07/2023, is reported. Follow-up with the oncologist continues, and all subsequent evaluations have been clear. Diabetes is managed with Tresiba, Ozempic, and metformin. The last A1c was done last week and was 7.5, down from 8.1. Atorvastatin is taken for cholesterol management. Stage 3a kidney disease is present. A history of anxiety and depression is managed with Dr. Sanford. Medications include Abilify, Wellbutrin, and nortriptyline. Chronic pain is managed by a industrial spraypainter. Tizanidine is taken once at night as needed, and Lyrica is taken three times a day for nerve pain. Aortic valve stenosis is noted, but no episodes of syncope are reported. Blood pressure is managed with losartan, hydrochlorothiazide, and metoprolol. Nervousness is reported today, and blood pressure readings at home have been consistent with those taken in the clinic. PAST SURGICAL HISTORY: - Endometrial carcinoma excision (07/2023) SUBJECTIVE: MEDICATIONS: Current Outpatient Medications Medication Instructions Accu-Chek FastClix Lancets [facility] Accu-Chek Guide test strip ARIPiprazole (Abilify) 15 MG tablet Every 24 hours ARIPiprazole (ABILIFY) 10 mg, Daily atorvastatin (LIPITOR) 40 mg, Oral, Daily buPROPion XL (Wellbutrin XL) 300 MG 24 hr tablet ergocalciferol (Vitamin D2) 1.25 MG (14044 UT) capsule hydrOXYzine HCl (ATARAX) 25 mg, Every 6 hours PRN insulin degludec (TRESIBA) 48 Units, Subcutaneous, Nightly Klayesta 939050 UNIT/GM powder APPLY EXTERNALLY TO AFFECTED SKIN AREAS TWICE DAILY NEEDED losartan-hydroCHLOROthiazide (Hyzaar) 50-12.5 MG tablet 1 tablet, Oral, Daily metFORMIN (Glucophage) 1000 MG tablet Every 24 hours metoprolol tartrate (LOPRESSOR) 25 mg, Oral, 2 times daily with meals nortriptyline (Pamelor) 50 MG capsule oxyCODONE-acetaminophen (Percocet) 5-325 MG tablet 1 tablet, 3 times daily PRN Ozempic (2 MG/DOSE) 2 mg, Weekly pregabalin (LYRICA) 75 mg, 2 times daily tiZANidine (Zanaflex) 4 MG tablet I have reviewed and reconciled the history and medication list with the patient today. REVIEW OF SYMPTOMS: Review of Systems OBJECTIVE: Visit Vitals BP 160/90 Pulse 91 Ht 5' 3 Wt 289 lb 6.4 oz SpO2 94% BMI 51.26 kg/m Smoking Status Never BSA 2.41 m Physical Exam Vitals and nursing note reviewed. Constitutional: Appearance: Normal appearance. HENT: Head: Normocephalic and atraumatic. Right Ear: A middle ear effusion is present. Left Ear: A middle ear effusion is present. Nose: Right Turbinates: Swollen. Left Turbinates: Swollen. Right Sinus: Maxillary sinus tenderness present. Left Sinus: Maxillary sinus tenderness present. Mouth/Throat: Pharynx: Uvula midline. Posterior oropharyngeal erythema present. Eyes: Extraocular Movements: Extraocular movements intact. Pupils: Pupils are equal, round, and reactive to light. Cardiovascular: Rate and Rhythm: Normal rate and regular rhythm. Heart sounds: S1 normal and S2 normal. Murmur heard. Systolic murmur is present with a grade of 3/6. Comments: Murmur radiates to carotids. Pulmonary: Effort: Pulmonary effort is normal. Breath sounds: Normal breath sounds. Musculoskeletal: Cervical back: Normal range of motion. Lymphadenopathy: Cervical: No cervical adenopathy. Skin: General: Skin is warm and dry. Capillary Refill: Capillary refill takes less than 2 seconds. Neurological: Mental Status: She is alert and oriented to person, place, and time. Psychiatric: Mood and Affect: Mood normal. ASSESSMENT AND PLAN: Assessment & Plan 1. Preoperative evaluation. - Blood pressure readings have shown improvement during this visit, decreasing from the 160s to the 140s, suggesting anxiety-related elevation. - No chest pain or shortness of breath reported; asymptomatic with normal parameters. - A repeat echocardiogram will be ordered to monitor aortic valve stenosis. - Blood pressure will be rechecked in a few minutes; metoprolol dosage adjustment will be considered if necessary. 2. Diabetes Mellitus. - Last A1c was 7.5, indicating improved control from previous 8.1. - Currently on Tresiba, Ozempic (on hold), and metformin. - Continue current medication regimen. 3. Endometrial Carcinoma. - Endometrial carcinoma removed in 07/2023. - Continues follow-up with specialist; no current issues reported. - Clear follow-up results to date. 4. Anxiety and Depression. - History of anxiety and depression; currently on Abilify, Wellbutrin, and nortriptyline. - Continues follow-up with Dr. Sanford. - Continue current medications. 5. Chronic Pain. - Experiences chronic pain; currently on tizanidine as needed and Lyrica three times a day. - Pain management regimen prescribed by industrial spraypainter. - Continue current medications and follow-up as needed. 6. Aortic Valve Stenosis. - Known history of aortic valve stenosis; murmur detected. - Repeat echocardiogram will be ordered to monitor condition. - Referral to cardiology will be considered if symptoms worsen. 7. Hypertension. - Blood pressure slightly elevated today, likely due to anxiety; was 128/86 last week. - Currently on losartan, hydrochlorothiazide, and metoprolol. - Blood pressure will be rechecked shortly; metoprolol dosage adjustment may be considered if necessary. 8. Hyperlipidemia. - Currently on atorvastatin for cholesterol management. - Continue current medication. Assessment/Plan Problem List Items Addressed This Visit Arthritis of left acromioclavicular joint Primary hypertension (CMS/HCC) BMI 50.0-59.9, adult (CMS/HCC) Aortic valve stenosis - Primary Relevant Orders Echocardiogram 2D complete Malignant neoplasm of endometrium (CMS/HCC) Stage 3a chronic kidney disease (HCC) (CMS/HCC) Other Visit Diagnoses Preoperative clearance Patient is an acceptable risk for surgery based on their history, physical examination and preop testing. They are performing at least 4 METS of physical activity at home. They understand there are always risks of surgery and anesthesia, but no further testing or treatment is needed for optimization prior to surgery. documented in this encounter [facility] 06-10-2024 History of Present illness Narrative Images from the original note were not included. Lesli Clay is a 64 y.o. female presents with chief complaint of URI HPI: HPI Presents to the office today with complaints of a hoarse voice which started a few days ago. She had a slight cough that produced a little bit of clear phlegm but has resolved. Denies any other symptoms. She has surgery scheduled for next Thursday on her shoulder so was concerned and wanted to get checked out. She did go for PAT testing, denies needing medical clearance. SUBJECTIVE: MEDICATIONS: ALLERGIES Current Outpatient Medications Medication Instructions Accu-Chek FastClix Lancets [facility] Accu-Chek Guide test strip ARIPiprazole (Abilify) 15 MG tablet Every 24 hours atorvastatin (LIPITOR) 40 mg, Oral, Daily buPROPion XL (Wellbutrin XL) 300 MG 24 hr tablet ergocalciferol (Vitamin D2) 1.25 MG (97877 UT) capsule hydrOXYzine HCl (ATARAX) 25 mg, Every 6 hours PRN insulin degludec (TRESIBA) 48 Units, Subcutaneous, Nightly Klayesta [id number] UNIT/GM powder APPLY EXTERNALLY TO AFFECTED SKIN AREAS TWICE DAILY NEEDED losartan-hydroCHLOROthiazide (Hyzaar) 50-12.5 MG tablet 1 tablet, Oral, Daily metFORMIN (Glucophage) 1000 MG tablet Every 24 hours metoprolol tartrate (LOPRESSOR) 25 mg, Oral, 2 times daily with meals nortriptyline (Pamelor) 50 MG capsule oxyCODONE-acetaminophen (Percocet) 5-325 MG tablet 1 tablet, 3 times daily PRN Ozempic (2 MG/DOSE) 2 mg, Weekly pregabalin (LYRICA) 75 mg, 2 times daily tiZANidine (Zanaflex) 4 MG tablet No Known Allergies PAST MEDICAL HISTORY: SOCIAL HISTORY SURGICAL HISTORY: Past Medical History: Diagnosis Date Abdominal pain Anxiety Cellulitis R foot 08/2016 COVID 02/2020 DENIES BLOODBORNE DX Depression (CMS/HCC) Diabetes (CMS/HCC) Endometrial cancer (CMS/HCC) GERD (gastroesophageal reflux disease) HTN (hypertension) (CMS/HCC) Hyperlipidemia (CMS/HCC) Osteoarthritis RSD (reflex sympathetic dystrophy) Social History Tobacco Use Smoking status: Never Smokeless tobacco: Never Vaping Use Vaping status: Never Used Substance Use Topics Alcohol use: Not Currently Comment: caffeine: 2-3 cups per day Drug use: Never Past Surgical History: Procedure Laterality Date BACK SURGERY 2016 x2 Rods and Screws at [place] SECTION, LOW TRANSVERSE x 3 DILATION AND CURETTAGE DILATION AND CURETTAGE OF UTERUS 05/22/2023 hysteroscopy with myosure HYSTERECTOMY LUMBAR FUSION 2010 Dr. Ken NECK SURGERY 2009 C5-C6 Neck - Dr. Ken [place] ARTHROSCOPY KNEE DIAGNOSTIC W/WO SYNOVIAL BX SPX Left 2011 @[place]? [place] TOTAL KNEE ARTHROPLASTY Right 10/2017 Dr. Blake [...] SYMPTOMS: Review of Systems Constitutional: Negative. HENT: Positive for voice change. Eyes: Negative. Respiratory: Negative. Cardiovascular: Negative. Gastrointestinal: Negative. Genitourinary: Negative. Musculoskeletal: Negative. Skin: Negative. Neurological: Negative. OBJECTIVE: Visit Vitals BP 128/86 Pulse 85 Temp 98.1 F Wt 281 lb 3.2 oz SpO2 97% BMI 49.81 kg/m Smoking Status Never BSA 2.39 m Physical Exam Vitals reviewed. Constitutional: Appearance: She is obese. HENT: Head: Normocephalic and atraumatic. Right Ear: Tympanic membrane normal. Left Ear: Tympanic membrane normal. Nose: Nose normal. Mouth/Throat: Mouth: Mucous membranes are moist. Pharynx: Oropharynx is clear. Eyes: Extraocular Movements: Extraocular movements intact. Pupils: [...] refill takes less than 2 seconds. Findings: No rash. Neurological: General: No focal deficit present. Mental Status: She is alert and oriented to person, place, and time. ASSESSMENT AND PLAN: Assessment/Plan Diagnoses and all orders for this visit: Acute laryngitis Viral in nature, needs to run its course. Drink plenty of fluids and get good rest. Instructed to notify office if symptoms persist or worsen. documented in this encounter [facility] 05-31-2024 History of Present illness Narrative Images from the original note were not included. GENERAL HISTORY AND PHYSICAL: NAME: Lesli Clay : 1960 HISTORY OF PRESENT ILLNESS: Lesli Clay is an 64 y.o. @ female. Here for surgery instructions H&P right shoulder scope @ [facility]. PAST MEDICAL HISTORY: Past Medical History: Diagnosis Date Abdominal pain Anxiety Cellulitis R foot 08/2016 COVID 02/2020 DENIES BLOODBORNE DX Depression (CMS/HCC) Diabetes (CMS/HCC) Endometrial cancer (CMS/HCC) GERD (gastroesophageal reflux disease) HTN (hypertension) (CMS/HCC) Hyperlipidemia (CMS/HCC) Osteoarthritis RSD (reflex sympathetic dystrophy) PAST SURGICAL HISTORY: Past Surgical History: Procedure Laterality Date BACK SURGERY 2016 x2 Rods and Screws at [place] SECTION, LOW TRANSVERSE x 3 DILATION AND CURETTAGE DILATION AND CURETTAGE OF UTERUS 05/22/2023 hysteroscopy with myosure HYSTERECTOMY LUMBAR FUSION 2010 Dr. Ken NECK SURGERY 2009 C5-C6 Neck - Dr. Ken MA ARTHROSCOPY KNEE DIAGNOSTIC W/WO SYNOVIAL [place]X [place] @[place] T[place] KNEE ARTHROPLASTY Right 10/2017 Dr. Blake ROTATOR CUFF REPAIR Left 2007 DR. RODRIGUEZ ROTATOR CUFF REPAIR Right 2009 DR. RODRIUGEZ TRIGGER FINGER RELEASE Right 04/25/2022 RT IF TRIGGER RELEASE- DR RODRIGUEZ TRIGGER FINGER RELEASE Right RT MF TRIGGER RELEASE- DR RODRIGUEZ TRIGGER FINGER RELEASE Left LT MF TRIGGER RELEASE- DR RODRIGUEZ TRIGGER FINGER RELEASE Right 12/12/[address] Rodriguez SOCIAL HISTORY: Social History Occupational History Not on file Tobacco Use Smoking status: Never Smokeless tobacco: Never Vaping Use Vaping status: Never Used Substance and Sexual Activity Alcohol use: Not Currently Comment: caffeine: 2 cups per day Drug use: Never Sexual activity: Not on file ALLERGIES: No Known Allergies MEDICATIONS: Current Outpatient Medications Medication Instructions Accu-Chek FastClix Lancets [facility] [place] Accu-Chek Guide test strip ARIPiprazole (Abilify) 15 MG tablet Every 24 hours atorvastatin (LIPITOR) 40 mg, Oral, Daily buPROPion XL (Wellbutrin XL) 300 MG 24 hr tablet ergocalciferol (Vitamin D2) 1.25 MG (65353 UT) capsule hydrOXYzine HCl (ATARAX) 25 mg, Every 6 hours PRN insulin degludec (TRESIBA) 48 Units, Subcutaneous, Nightly losartan-hydroCHLOROthiazide (Hyzaar) 50-12.5 MG tablet 1 tablet, Oral, Daily metFORMIN (Glucophage) 1000 MG tablet Every 24 hours metoprolol tartrate (LOPRESSOR) 25 mg, Oral, 2 times daily with meals nortriptyline (Pamelor) 50 MG capsule oxyCODONE-acetaminophen (Percocet) 5-325 MG tablet 1 tablet, 3 times daily PRN Ozempic (2 MG/DOSE) 2 mg, Weekly pregabalin (LYRICA) 75 mg, 2 times daily tiZANidine (Zanaflex) 4 MG tablet REVIEW OF SYSTEMS: Review of Systems Constitutional: Negative for fatigue, fever and unexpected weight change. Eyes: Negative for redness and visual disturbance. Gastrointestinal: Negative for abdominal pain. Denies Indigestion Musculoskeletal: See note: Skin: Negative for color change and rash. Neurological: Negative for light-headedness and numbness. Vitals: Body mass index is 51.19 kg/m . PHYSICAL EXAM: Physical Exam Constitutional: General: She is not in acute distress. Appearance: Normal appearance. HENT: Head: Normocephalic and atraumatic. Right Ear: External ear normal. Left Ear: External ear normal. Nose: Nose normal. No rhinorrhea. Mouth/Throat: Mouth: Mucous membranes are moist. Pharynx: No posterior oropharyngeal erythema. Eyes: Extraocular Movements: Extraocular movements intact. Conjunctiva/sclera: Conjunctivae normal. Cardiovascular: Rate and Rhythm: Normal rate and regular rhythm. Pulses: Normal pulses. Heart sounds: Murmur heard. Systolic murmur is present. Pulmonary: Effort: Pulmonary effort is normal. No respiratory distress. Breath sounds: Normal breath sounds. No wheezing or rhonchi. Abdominal: Palpations: Abdomen is soft. Tenderness: There is no abdominal tenderness. Musculoskeletal: Cervical back: Normal range of motion and neck supple. Lymphadenopathy: Cervical: No cervical adenopathy. Skin: General: Skin is warm and dry. Findings: No erythema or rash. Neurological: General: No focal deficit present. Mental Status: She is alert and oriented to person, place, and time. Psychiatric: Mood and Affect: Mood normal. Behavior: Behavior normal. No orders of the defined types were placed in this encounter. ASSESSMENT: ICD-10-CM 1. Pre-op examination Z01.818 PLAN: This patient presents for preadmission testing for upcoming surgery. Complete history with medical, surgery, and current allergy and medication list obtained. Consent for surgery signed and witnessed after verbal consent to perform surgery received. All questions answered and proposed surgery scheduled. PRE OP SURGERY INSTRUCTIONS May @ 2:30PM PRE OP TESTING SUSIE May @ 12:00 LAST OZEMPIC DOSE May ARTHREX NOTIFIED AUTH RECIEVED No follow-ups on file. documented in this encounter [facility] 05-25-2024 Evaluation note Diagnosis Onset Date Resolution Dietary counseling and surveillance acute May 25, 2024 9:32am Encounter for long-term (current) insulin use acute May 25, 2024 9:32am Hyperlipemia acute May 25 025 9:32am Hypertension acute May 25 025 9:32am Type 2 diabetes mellitus with hyperglycemia acute May 25 25 9:32am Vitamin D deficiency, unspecified acute May 25, 2024 9:32am [facility] Work Phone: [phone]) 324-341204-07-2025 History of Present illness Narrative* Blane Pino DPM - 05/23/2024 1:30 PM EDT Images from the original note were not included. Subjective Patient ID: Lesli Clay is a 64 y.o. female who presents for IPK Lesion (Lesli Clay 64yo patient presents with Left foot callus pain. /BS 103 A1C 9.7 (01/2025)Dr. Cabrera/Jo 04/12/2024 SS 9). HPI Patient last in clinic December of 2022. Chief complaint: Painful left forefoot; impacting ADLs and her ability to walk comfortably. Comments again like walking on a rock . Recurrent lesions, progressively symptomatic over the past several months or so. Denies bleeding or drainage. Denies streaking or constitutional symptoms. Admits to a fair amount of unshod walking, particularly in the home. Typically wears poor quality slip on shoes; recently purchased [employer] footwear with memory foam, which has been somewhat helpful. Self-care is difficult, ineffective, not practical; primarily due to mobility and flexibility limitations; increasing risk exposure. Family members unable to provide effective care. Risk factors: Medical comorbidities. Type II diabetes. Polypharmacy. Prosthetic joints. Mobility, flexibility and dexterity restraints. Medications Current Outpatient Medications: Accu-Chek FastClix Lancets misc, USE DIRECTED TWICE DAILY, Disp: , Rfl: Accu-Chek Guide test strip, USE DIRECTED TWICE DAILY, Disp: , Rfl: albuterol HFA 90 mcg/act inhaler, Inhale 2 puffs every 4 (four) hours if needed for wheezing (Patient not taking: Reported on 04/12/2024), Disp: 18 g, Rfl: 0 ALPRAZolam (Xanax) 0.5 MG tablet, daily as needed (Patient not taking: Reported on 04/12/2024), Disp: , Rfl: ARIPiprazole (Abilify) 15 MG tablet, 1 (one) time each day at the same time., Disp: , Rfl: atorvastatin (Lipitor) 40 MG tablet, TAKE 1 TABLET BY MOUTH EVERY DAY, Disp: 90 tablet, Rfl: 1 buPROPion XL (Wellbutrin XL) 300 MG 24 hr tablet, daily, Disp: , Rfl: diazePAM (Valium) 5 MG tablet, 1 tab 30-60 mins before procedure may repeat X1 if need for claustrophobia, Disp: 2 tablet, Rfl: 0 ergocalciferol (Vitamin D2) 1.25 MG (20088 UT) capsule, TAKE 1 CAPSULE BY MOUTH WEEKLY FOR 56 DAYS,Disp: , Rfl: gabapentin (Neurontin) 300 MG capsule, , Disp: , Rfl: hydrOXYzine pamoate (Vistaril) 25 MG capsule, Take 25 mg by mouth 3 (three) times a day as needed, Disp: , Rfl: insulin degludec (Tresiba) 100 UNIT/ML injection, Inject 48 Units under the skin at bedtime, Disp: , Rfl: losartan-hydroCHLOROthiazide (Hyzaar) 50-12.5 MG tablet, Take 1 tablet by mouth Daily, Disp: 90 tablet, Rfl: 1 metFORMIN (Glucophage) 1000 MG tablet, 1 (one) time each day at the same time., Disp: , Rfl: metoprolol tartrate (Lopressor) 25 MG tablet, Take 1 tablet (25 mg) by mouth in the morning and 1 tablet (25 mg) in the evening. Take with meals., Disp: 180 tablet, Rfl: 3 nortriptyline (Pamelor) 50 MG capsule, 2 tabs at bedtime, Disp: , Rfl: oxyCODONE-acetaminophen (Percocet) 5-325 MG tablet, Take 1 tablet by mouth 3 (three) times a day asneeded., Disp: , Rfl: pregabalin (Lyrica) 75 MG capsule, Take 75 mg by mouth in the morning and 75 mg before bedtime., Disp: , Rfl: Semaglutide, 2 MG/DOSE, (Ozempic, 2 MG/DOSE,) 8 MG/3ML solution pen-injector, Inject 2 mg under theskin 1 (one) time per week., Disp: , Rfl: tiZANidine (Zanaflex) 4 MG tablet, , Disp: , Rfl: Allergies Patient has no known allergies. Past Surgical History Past Surgical History: Procedure Laterality Date BACK SURGERY 2016 x2 Rods [place] Screws at [place] SECTION, LOW TRANSVERSE x 3 DILATION AND CURETTAGE DILATION AND CURETTAGE OF UTERUS 05/22/2023 hysteroscopy with myosure LUMBAR FUSION 2010 Dr. Ken NECK SURGERY 2008 C5-C6 Neck - Dr. Ken MA ARTHROSCOPY KNEE DIAGNOSTIC W/WO SYNOVIAL [place]X [place] @[place] TOTAL KNEE ARTHROPLASTY Right 10/2017 Dr. Blake ROTATOR CUFF REPAIR Left 2007 DR. RODRIGUEZ ROTATOR CUFF REPAIR Right 2009 DR. RODRIGUEZ TRIGGER FINGER RELEASE Right 04/25/2022 RT IF TRIGGER RELEASE- STEPANIC TRIGGER FINGER RELEASE Right RT MF TRIGGER RELEASE- STEPANIC TRIGGER FINGER RELEASE Left LT MF TRIGGER RELEASE- STEPANIC TRIGGER FINGER RELEASE Right 12/12/[address] Rodriguez Family History Family History Problem Relation Name Age of Onset Heart disease Mother Other (brain tumor) Father Objective General Examination: GENERAL EXAMINATION: Alert and oriented. Pleasant disposition. Wearing [employer] footwear. FOOT EXAM: Date of Last Foot Exam: 05/23/2024 Sensory testing performed: sensations normal Sensory and motor testing performed: strength normal Pedal pulse taking performed: 1+ Vascular: DORSALIS PEDIS PULSE: bilaterally, 1/4. POSTERIOR TIBIAL PULSE: bilaterally, 1/4. TEMPERATURE GRADIENT: warm to warm. EDEMA: Mild non-pitting edema bilateral ankles; with multiple telangiectasias. CALF: supple, bilateral. VARICOSITIES: present, bilaterally. CAPILLARY FILLING TIME(sec): capillary fill intact bilateral digits less than 3 secs. Neurologic: MUSCLE POWER: No focal deficits. SHARP SENSATION: tactile and soft touch sensation intact. SEMMES-MICHELE 5.07 MONOFILAMENT: Intact localization all points plantarly. Dermatologic: SKIN FINDINGS: Skin turgor is good. HYPERTROPHIC LESION: Focused exam left foot: Raised, well-defined, deeply nucleated IPK lesion; located sub-3rd metatarsal condyle; tender, locally inflamed. Unremarkable for ulceration, drainage, pigment or verrucous change. , Well-defined, raised, locally inflamed Josiah's HD lesion lateral nail fold 5th digit. No other forefoot or digital discrete keratotic pressure lesions are noted. NAIL PATHOLOGY: dystrophic, discolored multiple digits. INTERDIGITAL MACERATION: clean, dry, non-inflamed. ULCER: no sign of ulceration or open wound . DERMATITIS: Unremarkable for eczema or dermatitis. SKIN PATHOLOGY: texture, turgor are fair. Moderate non-inflamed xerosis bilateral; particularly in the heel areas. Ankle / Foot: RANGE OF MOTION: functional ankle, subtalar and MTPjoint range of motion without pain. Radiology: Assessment/Plan Symptomatic IPK/sub-lesional bursitis left forefoot. 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 Type II diabetes. Bilateral knee endoprosthesis Plan: Notes: review of clinical findings, etiology and contributing factors, treatment strategy, rationale and objectives. Left foot: Aseptic technique: #15 scalpel: Sharp debridement of symptomatic keratotic lesions; reducing direct and indirect pressure; providing symptom relief. Offloading measures: Modified insole therapy. Patient noted favorable relief upon leaving the clinic. Pumice stone as needed. Recommend Amlactin emollient therapy daily. Discourage any unshod walking or weightbearing activity. Diabetic education and assessment. Procedure: as noted left foot This note was created with the assistance of a speech recognition program. While intending to generate a timely document that accurately reflects the content of the visit, no guarantee can be provided that every grammatical or spelling mistake has been or will be identified or corrected. Thank you for your understanding. Blane Pino DPM documented in this [facility]04-07-2025 Instructions* Patient Instructions* Blane Pino DPM - 05/23/2024 1:30 PM EDT As noted documented in this encounterMer[facility] [id number] History of Present illness Narrative* Jr. Rica Rodriguez DO - 04/26/2024 8:45 AM EDT Images from the original note [...] VISIT WITH INSTRUCTION ON HEP) [facility] NO IMPROVEMENT. PAIN LATERAL AND ANTERIOR SHOULDER. STATES IT CAN BE DIFFUSE. CAN RADIATE DOWN ARM.DIFFICULTY PUTTING COAT ON AND OFF. +PERCOCET (PAIN [...] for claustrophobia ergocalciferol (Vitamin D2) 1.25 MG (23079 UT) capsule TAKE 1 CAPSULE BY MOUTH [...] Use - Medium Risk (04/11/2024) Received from [facility] Patient History Smoking Tobacco Use: Former [...] have recommended surgical intervention for rotator cuff tearor biceps tendinitis and impingement syndrome right shoulder. Patient is in agreement with this andfully understands said treatment. We have discussed both [...] of surgery. The patient understands the risks ofsaid treatment. Questions answered in laymen terms at the bedside. The diagnosis, home exercise plan and any ongoing restrictions/ recommendations reviewed. If unable to be reached in office, I recommend evaluation at nearest Emergency Room if any symptoms worsened or new symptoms develop for requiring urgent evaluation. documented in this [facility]03-03-2025 Telephone encounter Note* Telephone Encounter - Lalitha Trujillo NP - 04/18/2024 2:11 PM EST Can you please get her schedule for DM appointment next week, she is due to have her A1c rechecked [facility] Work Phone: 1(440) 728-439303-03-2025 Miscellaneous Notes* Telephone Encounter - Lalitha Trujillo NP - 04/18/2024 2:11 PM EST Can you please get her schedule for DM appointment next week, she is due to have her A1c rechecked documented in this [facility]02-25-2025 History of Present illness Narrative* Alexandra Osorio NP - 04/12/2024 11:00 AM EST Images from the original note were not included. Lesli Clay is a 64 y.o. female presents with chief complaint of URI HPI: HPI History of Present Illness The patient presents for evaluation of upper respiratory symptoms and elevated blood pressure. She has been experiencing a gradual onset of symptoms over the past few weeks, initially presentingas nasal congestion before progressing to chest involvement. She reports the production of green phlegm and a sore throat, which is exacerbated during swallowing. She also reports shortness of breathbut does not experience any associated pressure. She has an inhaler at home from a previous illnessbut is unable to locate it. She has no history of asthma. She has been self-medicating with auce-xsi-fiazydr cough and cold medications but did not take any such medication yesterday. Her blood pressure was recorded as 232/109 during a recent visit to her jewelry maker in [place], prompting a recheck post-examination, which yielded a [...] for claustrophobia ergocalciferol (Vitamin D2) 1.25 MG (58524 UT) capsule TAKE 1 CAPSULE BY MOUTH [...] 08/2016 COVID 02/2020 DENIES BLOODBORNE DX Depression ([facility]) Diabetes ([facility]) GERD (gastroesophageal reflux disease) HTN (hypertension) ([facility]) Hyperlipidemia ([facility]) Osteoarthritis RSD (reflex sympathetic dystrophy) Social History [...] SURGERY 2009 C5-C6 Neck - Dr. Ken MA ARTHROSCOPY KNEE DIAGNOSTIC W/WO SYNOVIAL [place] SPX Left [place] @[place] TOTAL KNEE ARTHROPLASTY Right 10/2017 Dr. Blake [...] mononeuropathy, with long-term current use of insulin ([facility]) SOB (shortness of breath) - XR chest [...] 232/109 during a recent visit to her jewelry maker.It is possible that her qzrf-jrw-qibjdtk cough and cold medication, if containing DM, could have contributed to the elevation in her blood pressure. She is advised to monitor her blood pressure at home on a weekly basis and report any readings exceeding 150/90. She is also reminded to adhere to herdaily antihypertensive medication regimen and maintain adequate hydration. No follow-ups on file. documented in this encounterMercy Hospital [id number] History of Present illness Narrative* Sean Tineo, PT - 03/23/2024 9:00 AM EST Images from the original note were not [...] limited, IR/ext behind back to post/lat hip severelylimited and painful. PROM flex to 125, abd [...] be ind with HEP for maintenance at DC and able to avoid further intervention Pt will benefit from skilled PT to address the above impairments for 2x/week for 6 weeks. Auth after 6 visits. However pt requesting Home program only at this time due to $25.00 copay. Prognosis poorwith HEP only and no formal regular PT based on presentation today. I hereby deem this POC medically necessary. Please sign below. Date: documented in this encounterMercy Hospital WashingtonCkgnullplv26-05-2639 History of Present illness Narrative* Rica Nair Jennifer, DO - 03/16/2024 9:00 AM EST Images from the original note were not included. HISTORY OF PRESENT ILLNESS: EST PT Lesli Clay is an 64 y.o. @ female. (EST PT) - S/P MRI (03/10/24) , HERE FOR RESULTS ; RT SHOULDER PAIN (~4 MONTHS) (NOV 2023) XRAY RT SHOULDER EPIC 12/29/23 MRI (03/10/24) CORTISONE INJX (AC) 12/29/23 NO MDP/PREDNISONE NO PT PAIN MANAGEMENT [facility] STATES SHOULDER IS FEELING WORSE. PAIN LATERAL [...] for claustrophobia ergocalciferol (Vitamin D2) 1.25 MG (31706 UT) capsule TAKE 1 CAPSULE BY MOUTH [...] Use - Medium Risk (01/05/2024) Received from [employer] Patient History Smoking Tobacco Use: Former Smokeless [...] Consult and Treat Referred to Provider: Sean Tineo PT Requested Specialty: Physical Therapy Number of [...] We have recommended physical therapy one time visit.Since she pays $25 per visit to outline [...] for requiring urgent evaluation. documented in this encounterMercy Hospital [id number] Telephone encounter Note* Telephone Encounter - Jennifer Cabrera MD - 2024 12:47 PM EST Refills sent. [facility] [id number] Miscellaneous Notes* Telephone Encounter - Jennifer Cabrera MD - 2024 12:47 PM EST Refills sent. documented in this [facility]01-18-2025 Telephone encounter Note* Telephone Encounter - Alexandra Osorio NP - 03/05/2024 9:01 AM EST Please call and request her records from Lili Burgos NP at [facility] for her diabetes. [facility] WashingtonKkvhpwbapn71-77-0531 Miscellaneous Notes* Telephone Encounter - Alexandra Osorio NP - 03/05/2024 9:01 AM EST Please call and request her records from Lili Burgos NP at [facility] for her diabetes. documented in this [facility]01-18-2025 History of Present illness Narrative* Comfort French MA - 03/05/2024 9:00 AM EST Images from the original note were not [...] for claustrophobia ergocalciferol (Vitamin D2) 1.25 MG (63980 UT) capsule TAKE 1 CAPSULE BY MOUTH [...] m Physical Exam ASSESSMENT AND PLAN: Assessment/Plan * Alexandra Osorio NP - 03/05/2024 9:00 AM EST Lesli Clay is a 63 y.o. female [...] her neck, which she has been inadvertently scratchingduring the day. The onset of this rash was noted within the past few days. She continues to experience pruritus associated with the rash. She is not experiencing any respiratory distress, including shortness of breath or wheezing. She is under the care of an director of field sales for her diabetes management. Her most recent [id number] level was either 7.9 or 8, indicating [...] for claustrophobia ergocalciferol (Vitamin D2) 1.25 MG (79300 UT) capsule TAKE 1 CAPSULE BY MOUTH [...] SURGERY 2009 C5-C6 Neck - Dr. Ken MA ARTHROSCOPY KNEE DIAGNOSTIC W/WO SYNOVIAL BX SPX Left [place]? [place] TOTAL KNEE ARTHROPLASTY Right 10/2017 Dr. Blake [...] mononeuropathy, with long-term current use of insulin ([facility]) Skin rash Assessment & Plan Rash on [...] 8, indicating suboptimal control. Records from her director of field sales will be requested to review her recent A1c levels and overall management plan. No follow-ups on file. documented in this encounterMercy Hospital Wa[id number] Telephone encounter Note* Telephone Encounter - Omaira Estrada - 03/02/2024 1:20 PM EST Patient notified [facility] [id number] Miscellaneous Notes* Telephone Encounter - Omaira Estrada - 03/02/2024 1:20 PM EST Patient notified * Telephone Encounter - SERGIO Iglesias - 03/02/2024 12:38 PM EST Rx sent to pharmacy, please notify pt. She can not drive with medication and can't work after taking them.. will need a cdl dedicated truck driver too and from MRI appt. * Telephone Encounter - Omaira Estrada - 03/02/2024 10:31 AM EST Patient called asking about medication for MRI for claustrophobia. Patient states she has tried the pills for premed (possibly Xanax but she isn't sure) and they did not help her. Patient states another medication was discussed in office and she would like to try that. [facility] [place]. Her call back is [phone]. Please advise, thank you documented in this encounterMercy Hospital [id number] Telephone encounter Note* Telephone Encounter - SERGIO Iglesias - 03/02/2024 12:38 PM EST Rx sent to pharmacy, please notify pt. She can not drive with medication and can't work after taking them.. will need a cdl dedicated truck driver too and from MRI appt. [facility] [id number] Telephone encounter Note* Telephone Encounter - Omaira Estrada - 03/02/2024 10:31 AM EST Patient called asking about medication for MRI for claustrophobia. Patient states she has tried the pills for premed (possibly Xanax but she isn't sure) and they did not help her. Patient states another medication was discussed in office and she would like to try that. She uses [facility]in [place]. Her call back is [phone]. Please advise, thank you [facility] WashingtonTogiisxkyy06-27-5961 History of Present illness Narrative* Alexandra Osorio, NIDHI - 02/29/2024 4:30 PM EST Images from the original note were not [...] She is under the care of an director of field sales, Dr. Burgos, at [facility] for her diabetes management. Her last consultation was in 12/2023 or 01/2024, and she is scheduled for a follow-up visit in a fewweeks. Her blood glucose levels have been well-controlled, [...] tablet daily ergocalciferol (Vitamin D2) 1.25 MG (40842 UT) capsule TAKE 1 CAPSULE BY MOUTH [...] mononeuropathy, with long-term current use of insulin ([facility]) Symptoms are likely related to diabetic neuropathy. She does see Lili Burgos at [facility] for diabetes and had an A1C in [...] by mouth in the morning and 1 capsule(500 mg) at noon and 1 capsule (500 mg) in the evening and 1 capsule (500 mg) before bedtime. Do all this for 5 days. Pt to start antibiotics as directed. Warm compresses. Monitor closely. Follow-up with PCP if no improvement or if sx worsen over the next 24-48h. Pt verbalized understanding and agreed to plan. documented in this encounterMercy Hospital [id number] History of Present illness Narrative* SERGIO Iglesias - 01/26/2024 10:15 AM EST Images from the original note were not [...] tablet daily ergocalciferol (Vitamin D2) 1.25 MG (76827 UT) capsule TAKE 1 CAPSULE BY MOUTH [...] Use - Medium Risk (01/05/2024) Received from [facility] Patient History Smoking Tobacco Use: Former Smokeless [...] no signs or symptoms of infection. An MRIstudy was discussed, and she is agreeable to it despite being very claustrophobic. The possibility of conducting the MRI at [facility] with potential IM sedation was considered, and she is agreeable to this approach. The risks and benefits of a subacromial cortisone injection were also discussed, but she prefers to wait for the MRI results before deciding, given her persistent symptoms and lack ofrelief from a previous AC joint injection. Questions answered in laymen terms at the bedside. The diagnosis, home exercise plan and any ongoing restrictions/ recommendations reviewed. If unable to be reached in office, I recommend evaluation at nearest Emergency Room if any symptoms worsened or new symptoms develop for requiring urgent evaluation. documented in this encounterMercy Hospital [id number] History of Present illness Narrative* Pastora Kohler, NIDHI - 01/19/2024 11:30 AM EST Images from the original note were not [...] has been gradually worsening since that time. Treatmentto date: cough suppressants. URI Associated symptoms include congestion, coughing, rhinorrhea, a sore throat and wheezing. Pertinentnegatives include no chest pain. SUBJECTIVE: MEDICATIONS: Current [...] tablet daily ergocalciferol (Vitamin D2) 1.25 MG (84800 UT) capsule TAKE 1 CAPSULE BY MOUTH [...] right-lower field reveals wheezing. Examination of the left-lowerfield reveals wheezing. Wheezing present. Abdominal: General: Abdomen [...] office tomorrow in improvement. documented in this encounterMercy Hospital [id number] Evaluation note* Diagnosis Onset Date Resolution Status Admit Date Dietary counseling and surveillance acute December 29, 024 9:39am Encounter for long-term (current) insulin use acute December 172023 9:39am Hyperlipemia acute December h2023 9:39am Hypertension acute December 9:39am Type 2 diabetes mellitus wit h hyperglycemia acute December 29 024 9:39am Vitamin D deficiency, unspecified acute December 29 024 9:39am [facility] Work Phone: 1(410) 884-512211-12-2024 History of Present illness Narrative* SERGIO Iglesias - 12/29/2023 10:15 AM ESTAssociated Order(s): M Inj/Asp: R acromioclavicular Post-Procedure Diagnose(s): Arthritis of right acromioclavicular joint Images from the original note were not included. HISTORY OF PRESENT ILLNESS: EST PT Lesli Durbin Cieloangelita is an 63 y.o. @ female. EST [...] tablet daily ergocalciferol (Vitamin D2) 1.25 MG (76287 UT) capsule TAKE 1 CAPSULE BY MOUTH [...] Use - Medium Risk (12/10/2023) Received from [facility] Patient History Smoking Tobacco Use: Former [...] for requiring urgent evaluation. documented in this encounterMercy Hospital [id number] History of Present illness Narrative* SERGIO Iglesias [...] tablet daily ergocalciferol (Vitamin D2) 1.25 MG (19032 UT) capsule TAKE 1 CAPSULE BY MOUTH [...] for requiring urgent evaluation. documented in this encounterMercy Hospital [id number] History of Present illness Narrative* SERGIO Iglesias [...] tablet daily ergocalciferol (Vitamin D2) 1.25 MG (39118 UT) capsule TAKE 1 CAPSULE BY MOUTH [...] Use - Medium Risk (09/09/2023) Received from [facility] Patient History Smoking Tobacco Use: Former [...] for requiring urgent evaluation. documented in this encounterMercy Hospital WashingtonDophkcfbuo75-04-4493 Hospital Discharge instructions* Discharge Instructions* Gladys Frais RN - 06/30/2023 1:04 PM EDT Images [...] medications unless otherwise instructed. documented in this encounterCAR[facility] History of Present illness Narrative* Gladys Frias RN - 06/30/2023 11:16 AM EDT Patient admitted, consent signed and questions answered. Patient ready for procedure. Call light toreach with side rails up 2 of 2. Bilateral groin clipped with marketing underwriter and Gabrielle NGUYEN present. Salvador at bedside with patient. History and physical needs updated. documented in this encounterCARILION [facility]04-18-2024 Miscellaneous Notes* Telephone Encounter - Liat Camejo - 06/04/2023 2:58 PM EDT Debeader rec'd VM from Darlin in precert stating Dr. Moreno/Andre is out network with this patient insurance and procedure will not be covered, however, pt insurance covers [facility]. [facility] regarding patient to see if they could see this patient and take over care, theyrequested all information be faxed to their office and they will reach out to patient. Debeader did notify patient we had to cx procedure and all upcoming appts, referral was sent over to [facility] air conditioning technician/onc, pt voices understanding and marketing underwriter advised pt to call our office back if she has any problems getting established with another provider, pt voices understanding. documented in this encounterSelect [facility]04-18-[facility]24 Telephone encounter Note* Telephone Encounter - Liat Camejo - 06/04/2023 2:58 PM EDT Debeader rec'd VM from Darlin in precert [facility] insurance and procedure will not be covered, however, pt insurance covers [facility]. Debeader called over to [facility] Contact Center Team Lead/Onc regarding patient to see if they could see this patient and take over care, theyrequested all information be faxed to their office and they will reach out to patient. Debeader did notify patient we had to cx procedure and all upcoming appts, referral was sent over to [facility] air conditioning technician/onc, pt voices understanding and marketing underwriter advised pt to call our office back if she has any problems getting established with another provider, pt voices understanding. [facility] History of Present illness Narrative* Edwin Moreno [...] had 3 back surgeries CARPAL TUNNEL RELEASE 2012 SECTION 3 c-sections JOINT REPLACEMENT 08/2016 right knee replacement KNEE CARTILAGE SURGERY 2011 meniscus repair on left lower extremity NECK SURGERY 2010 ROTATOR CUFF REPAIR 2011 rotator cuff repair on both side Past Medical History: Diagnosis Date Anxiety Arthritis Cellulitis Depression Diabetes mellitus ([facility]) Diabetes mellitus type 2, controlled ([facility]) Fibromyalgia, primary GERD (gastroesophageal reflux disease) Hyperlipidemia [...] recurrent major depressive disorder, without psychotic features ([facility]) Cellulitis of right lower extremity Endometrial cancer ([facility]) BMI 50.0-59.9, adult ([facility]) Plan: 1. The patient has a documented [...] procedures Referring and communicating with other health manager respiratory care (not separately reported) Documenting clinical information in the electronic or other health record Edwin Moreno MD documented in [facility] encounterHol[facility]02-[facility]-20[facility] Evaluation note* [facility] Authored April 07, 2023 11:54am Patient [...] for Bella CGM will be sent to [facility] to determine cost for CGM. Patient provided contact number for [facility]. If pt is unable to afford CGM, pt instructed to continue use of her personal meter. Pt to return in 2 weeks for download with visual educator and in approximately 4 week follow up with provider. Encouraged to return for follow up visit. 45 minutes spent on education with Jodi DAIGLE, WENDY. [facility] Work Phone: 1([phone]) 363-586902-20-2024 Evaluation note* Author Kaya Tomlinson [facility] Authored April 07, 2023 11:54am Patient [...] for Bella CGM will be sent to [facility] to determine cost for CGM. Patient provided contact number for [facility]. If pt is unable to afford CGM, pt instructed to continue use of her personal meter. Pt to return in 2 weeks for download with visual educator and in approximately 4 week follow up with provider. Encouraged to return for follow up visit. 45 minutes spent on education with Jodi DAIGLE, RN. Author Lili Burgos [facility] Authored May 11, 2023 1:1 8pm [...] have likely improved. Checking on CGM from [facility]-- processing 4 weeks ago, would benefit from [...] of hypoglycemia, hyperglycemia, or diabetes medication issues. [facility] Work Phone: 1(168) 587-397512-19-2023 Evaluation note* Encounter Date Diagnosis Assessment Notes Treatment Notes Treatment Clinical Notes Jan, Type 2 diabetes mellitus with hyperglycemia (ICD-10 - E11.65) ASSESSMENT: 1. Controlled, a Type 2 diabetes with A1c of 9.7%, was 8.0%. Worsening. 2. Out of Jardiance X3 weeks should not have impacted A1c to this degree, but needs to restart. Defers CGM d/t cost. Sampled Synpamelay 12.06/999 and given voucher Aubree_ _ should [...] of insulin. Patient deferred due to her zbu-sn-yplwub cost. We will retry in a couple [...] at goal of less than 130/80 Jan, skilled nursing current use of insulin (ICD-10 - Z79.4) Jan, BMI 50.0-59.9, adult (ICD-10 - Z68.43) [place] [employer] Other 10-11-2023 Evaluation note* Encounter Date Diagnosis [...] also consider patient assistance with Rekha for [employer]. We did have a conversation about her [...] of insulin. Patient deferred due to her ogk-qk-mumhun cost. 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 Patient deferred due to her azj-kb-chzubd cost. We will retry in a couple [...] 143/88, goal of less than 130/80 Sep, skilled nursing current use of insulin (ICD-10 - Z79.4) Sep, BMI 50.0-59.9, adult (ICD-10 - Z68.43) [employer] Other 06-27-2023 Evaluation note* Encounter Date Diagnosis Assessment Notes Treatment Notes Treatment Clinical Notes Jul, Lumbar radiculopathy (ICD-10 - M54.16) Independently reviewed the CT of the lumbar spine from 03/06/22, reviewed pwox-tm-ktqm with patient which shows which shows multilevel degenerative changes with mild to moderate canal and foraminal narrowing at the L4-L5. Shows posterior mechanical fusion at the L1-S1 with posterior decompression at the L1-L3. Patient had physical therapy at [facility] and continues to do the home physical therapy without improvement. Will order xray lumbar 6 view to rule out any spondylolisthesis. Will order MRI to rule out any cord compression. Will get release of information from pain management Dr. Cook and [facility] physical therapy for continuity of care.Will order Aqua therapy. OARRS reviewed. pharmacological management reviewed, will continue with current prescriptions as prescribed. Will add lidocaine patch and ckqk-npe-pxbdnny Thermo patch. Will follow-up in 8 weeks [...] rule out osteoporosis Jul, Other OARRS reveiwed [employer] Other 06-16-2023 Evaluation note* Encounter Date Diagnosis [...] of insulin. Patient deferred due to her hqg-se-ripiaz cost. 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 Weight up today without decrease in insulin needs, no increases satiety The patient was given a Dexcom G6 sample and loaned an Office owned Dexcom G6 Process Area Supervisor. The sensor was placed on the back of her right arm by this educator. The patient was shown how to unlock the manipulator operator and read her BG. 15 minutes were spent placing the sensor and educating the patient by Lit Dixon RN, [facility] . 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 Weight up today without decrease in insulin needs, no increases satiety [employer] Other 12-29-2022 NoteCONSULTATION CONSULTATION DATE: 02/13/2022 HISTORY [...] is able to walk unassisted. Medications include Jones 5/325 t.i.d., baclofen 10 mg q.h. s., [...] b.i.d. A referral will be sent to [facility]'s Neurosurgery to Dr. Moses Goetz for evaluation and patient is in complete agreement with this. We will continue to maintain her medications at this time, which will include Lyrica, Jones and baclofen. We will see the patient in three months' time, unless otherwise indicated. Patient was asked to call the office with an update once she has seen Neurosurgery.[facility] 12-31-2021 Evaluation note* Encounter Date Diagnosis Assessment Notes Treatment Notes Treatment Clinical Notes Dec, Type 2 diabetes mellitus with hyperglycemia (ICD-10 - E11.65) [employer] Other 09-21-2022 NoteCONSULTATION CONSULTATION DATE: 11/06/2021 HISTORY [...] secondary to her pain. Current medications include Jones 5/325 t.i.d., baclofen 10 mg q.h.s., Pamelor [...] indicated, and patient agrees with this plan.[facility] CenterUjxcanfw06-71-2589 Evaluation note* Encounter Date Diagnosis Assessment Notes [...] Instructions material was published to portal Oct, skilled nursing current use of insulin (ICD-10 - Z79.4) Oct, BMI 45.0-49.9, adult (ICD-10 - Z68.42) Expect improvement with escalation of Ozempic to 2.0 mg subcu daily. Weight slightly improving. hopeful for continue reduction to increase insulin sensitivity and decrease insulin needs. [employer] Other 06-16-2022 NoteCONSULTATION CONSULTATION DATE: 08/01/2021 HISTORY [...] burn but manageable. Her current medications are Jones 5/325 t.i.d., baclofen 10 mg q.h.s. and [...] move forward with aqua therapy at the [place] location. I did discuss vitamins with her as well as nutrition importance. Patient will be seen at the clinic in three months' time unless otherwise indicated. [facility] Signed and Approved by: ALICIA HERNANDEZ . 08/14/2021 16:24:00[facility]05-23-2022 Evaluation note* Encounter Date Diagnosis Assessment Notes Treatment Notes Treatment Clinical Notes June, Type 2 diabetes mellitus with hyperglycemia (ICD-10 - E11.65) [employer] Other [id number] Evaluation note* Encounter Date Diagnosis Assessment Notes [...] Instructions material was published to portal June, skilled nursing current use of insulin (ICD-10 - Z79.4) June, BMI 45.0-49.9, adult (ICD-10 - Z68.42) Expect improvement with escalation of Ozempic to 2.0 mg subcu daily. [employer] Other 10-06-2021 Evaluation note* Encounter Date Diagnosis [...] Prescriptions: None needed at this time. Nov, skilled nursing current use of insulin (ICD-10 - Z79.4) Nov, HTN (hypertension) (ICD-10 - I10) High Blood Pressure: Care Instructions material was published to [employer] Nov, Hyperlipidemia (ICD-10 - E78.5) Learning About High Cholesterol material was published to [employer] Nov, Dietary counseling and surveillance (ICD-10 - Z71.3) Learning About Healthy Weight material was published to [employer] Nov, BMI 45.0-49.9, adult (ICD-10 - Z68.42) Nov, Albuminuria (ICD-10 - R80.9) Nov, BMI 50.0-59.9, adult (ICD-10 - Z68.43) Nov, Other Learning About Vitamin D material was published to [employer] Other Evaluation noteNo InformationNort [employer] Other Evaluation noteNo assessment information available [facility] Work Phone: Evaluation note* Diagnosis Onset Date Resolution Status Type 2 diabetes mellitus with hyperglycemia acute [facility] Work Phone: Evaluation note* Diagnosis Abnormal stress test Other nonspecific abnormal cardiovascular system function study documented in this encounter [facility]* Diagnosis Onset Date Resolution Status Hyperlipemia acute Hypertension acute Type 2 diabetes mellitus with hyperglycemia acute [facility] Work Phone: Evaluation note* Diagnosis Acute pain of left knee- Primary History of left knee replacement Left hip pain Pain in joint, pelvic region and thigh documented in this encounter [facility] HealthcareEvaluation [facility]* Diagnosis Wellness examination- Primary Encounter for screening mammogram for malignant neoplasm of breast Heart murmur, systolic Preoperative clearance Unspecified pre-operative examination Primary hypertension ([facility]) Unspecified essential hypertension BMI 50.0-59.9, adult ([facility]) Mixed hyperlipidemia ([facility]) Mixed hyperlipidemia Recurrent major depressive disorder, in partial remission (HCC) ([facility]) Type 2 diabetes mellitus with hyperglycemia, with long-term current use of insulin ([facility]) Primary hypertension ([facility]) Unspecified essential hypertension documented in this encounter [facility] HealthcareEvaluation note* Diagnosis Wellness examination- Primary Encounter for screening mammogram for malignant neoplasm of breast Heart murmur, systolic Preoperative clearance Unspecified pre-operative examination Primary hypertension ([facility]/HCC) Unspecified essential hypertension BMI 50.0-59.9, adult ([facility]CC) Mixed hyperlipidemia ([facility]) Mixed hyperlipidemia Recurrent major depressive disorder, in partial remission (HCC) ([facility]) Type 2 diabetes mellitus with hyperglycemia, with long-term current use of insulin ([facility]) Acute pain of left knee- Primary History of left knee replacement documented in this encounter [facility] HealthcareEvaluation note* Diagnosis Onset Date Resolution Status Admit Date Dietary counseling and surveillance acute December 29, 024 9:39am Encounter for long-term (current) insulin use acute December 172023 9:39am Hyperlipemia acute December h2023 9:39am Hypertension acute December h2023 9:39am Type 2 diabetes mellitus wit h hyperglycemia acute December 29, 024 9:39am Vitamin D deficiency, unspecified acute December 29 024 9:39am [facility] Work Phone: Evaluation note* Diagnosis Wellness examination- Primary Encounter for screening mammogram for malignant neoplasm of breast Heart murmur, systolic Preoperative clearance Unspecified pre-operative examination Primary hypertension ([facility]/HCC) Unspecified essential hypertension BMI 50.0-59.9, adult ([facility]) Mixed hyperlipidemia ([facility]) Mixed hyperlipidemia Recurrent major depressive disorder, in partial remission (HCC) ([facility]) Type 2 diabetes mellitus with hyperglycemia, with long-term current use of insulin ([facility]) Acute pain of right shoulder- Primary Arthritis of right acromioclavicular joint documented in this encounter [facility] HealthcareEvaluation note* Diagnosis Wellness examination- Primary Encounter for screening mammogram for malignant neoplasm of breast Heart murmur, systolic Preoperative clearance Unspecified pre-operative examination Primary hypertension ([facility]) Unspecified essential hypertension BMI 50.0-59.9, adult ([facility]) Mixed hyperlipidemia ([facility]) Mixed hyperlipidemia Recurrent major depressive disorder, in partial remission (HCC) ([facility]) Type 2 diabetes mellitus with hyperglycemia, with long-term current use of insulin ([facility]) Bronchitis- Primary Bronchitis, not specified as acute or chronic Type 2 diabetes mellitus with diabetic mononeuropathy ([facility]) Wheezing documented in this encounter [facility] HealthcareEvaluation note* Diagnosis Wellness examination- Primary Encounter for screening mammogram for malignant neoplasm of breast Heart murmur, systolic Preoperative clearance Unspecified pre-operative examination Primary hypertension ([facility]) Unspecified essential hypertension BMI 50.0-59.9, adult ([facility]) Mixed hyperlipidemia ([facility]) Mixed hyperlipidemia Recurrent major depressive disorder, in partial remission (HCC) ([facility]) Type 2 diabetes mellitus with hyperglycemia, with long-term current use of insulin ([facility]) Acute pain of right shoulder- Primary Arthritis of right acromioclavicular joint Internal derangement of right shoulder History of claustrophobia documented in this encounter [facility] HealthcareEvaluation note* Diagnosis Wellness examination- Primary Encounter for screening mammogram for malignant neoplasm of breast Heart murmur, systolic Preoperative clearance Unspecified pre-operative examination Primary hypertension ([facility]) Unspecified essential hypertension BMI 50.0-59.9, adult ([facility]) Mixed hyperlipidemia ([facility]) Mixed hyperlipidemia Recurrent major depressive disorder, in partial remission (HCC) ([facility]) Type 2 diabetes mellitus with hyperglycemia, with long-term current use of insulin ([facility]) Type 2 diabetes mellitus with diabetic mononeuropathy, with long-term current use of insulin ([facility])- Primary Left leg cellulitis Morbid (severe) obesity due to excess calories ([facility]) Body mass index (BMI) 50.0-59.9, adult ([facility]) Type 2 diabetes mellitus with other skin complications ([facility]) Bipolar disorder, unspecified ([facility]) Bipolar disorder, unspecified documented in this encounter [facility]Evaluation note* Diagnosis Wellness examination- Primary Encounter for screening mammogram for malignant neoplasm of breast Heart murmur, systolic Preoperative clearance Unspecified pre-operative examination Primary hypertension ([facility]) Unspecified essential hypertension BMI 50.0-59.9, adult ([facility]) Mixed hyperlipidemia ([facility]) Mixed hyperlipidemia Recurrent major depressive disorder, in partial remission (HCC) ([facility]) Type 2 diabetes mellitus with hyperglycemia, with long-term current use of insulin ([facility]) History of claustrophobia- Primary documented in this encounter [facility]* Diagnosis Wellness examination- Primary Encounter for screening mammogram for malignant neoplasm of breast Heart murmur, systolic Preoperative clearance Unspecified pre-operative examination Primary hypertension ([facility]) Unspecified essential hypertension BMI 50.0-59.9, adult ([facility]) Mixed hyperlipidemia ([facility]) Mixed hyperlipidemia Recurrent major depressive disorder, in partial remission (HCC) ([facility]) Type 2 diabetes mellitus with hyperglycemia, with long-term current use of insulin ([facility]) Left leg cellulitis- Primary Type 2 diabetes mellitus with diabetic mononeuropathy, with long-term current use of insulin ([facility]) Skin rash Rash and other nonspecific skin eruption Opioid dependence, uncomplicated ([facility]) documented in this encounter [facility]* Diagnosis Wellness examination- Primary Encounter for screening mammogram for malignant neoplasm of breast Heart murmur, systolic Preoperative clearance Unspecified pre-operative examination Primary hypertension ([facility]) Unspecified essential hypertension BMI 50.0-59.9, adult ([facility]) Mixed hyperlipidemia ([facility]) Mixed hyperlipidemia Recurrent major depressive disorder, in partial remission (HCC) ([facility]) Type 2 diabetes mellitus with hyperglycemia, with long-term current use of insulin ([facility]) Mixed hyperlipidemia ([facility]) Mixed hyperlipidemia documented in this encounter [facility]* Diagnosis Wellness examination- Primary Encounter for screening mammogram for malignant neoplasm of breast Heart murmur, systolic Preoperative clearance Unspecified pre-operative examination Primary hypertension ([facility]) Unspecified essential hypertension BMI 50.0-59.9, adult ([facility]/HCC) Mixed hyperlipidemia (CMS/HCC) Mixed hyperlipidemia Recurrent major depressive disorder, in partial remission (HCC) ([facility]) Type 2 diabetes mellitus with hyperglycemia, with long-term current use of insulin ([facility]) Acute pain of right shoulder- Primary Arthritis of right acromioclavicular joint Biceps tendinitis, right documented in this encounter [facility] HealthcareEvaluation note* Diagnosis Wellness examination- Primary Encounter for screening mammogram for malignant neoplasm of breast Heart murmur, systolic Preoperative clearance Unspecified pre-operative examination Primary hypertension (CMS/HCC) Unspecified essential hypertension BMI 50.0-59.9, adult ([facility]) Mixed hyperlipidemia ([facility]/HCC) Mixed hyperlipidemia Recurrent major depressive disorder, in partial remission (HCC) ([facility]) Type 2 diabetes mellitus with hyperglycemia, with long-term current use of insulin ([facility]) Biceps tendinitis, right- Primary Impingement of right shoulder documented in this encounter [facility] HealthcareEvaluation note* Diagnosis Endometrial cancer ([facility])- Primary Malignant neoplasm of corpus uteri, except isthmus BMI 50.0-59.9, adult ([facility]) [facility] Diagnosis Wellness examination- Primary Encounter for screening mammogram for malignant neoplasm of breast Heart murmur, systolic Preoperative clearance Unspecified pre-operative examination Primary hypertension ([facility]) Unspecified essential hypertension BMI 50.0-59.9, adult ([facility]) Mixed hyperlipidemia ([facility]/HCC) Mixed hyperlipidemia Recurrent major depressive disorder, in partial remission (HCC) ([facility]) Type 2 diabetes mellitus with hyperglycemia, with long-term current use of insulin ([facility]) Type 2 diabetes mellitus with diabetic mononeuropathy, with long-term current use of insulin ([facility])- Primary SOB (shortness of breath) Shortness of breath Wheezing Poorly-controlled hypertension ([facility]/HCC) documented in this encounter [facility] HealthcareEvaluation note* Diagnosis Wellness examination- Primary Encounter for screening mammogram for malignant neoplasm of breast Heart murmur, systolic Preoperative clearance Unspecified pre-operative examination Primary hypertension (CMS/HCC) Unspecified essential hypertension BMI 50.0-59.9, adult ([facility]) Mixed hyperlipidemia ([facility]/HCC) Mixed hyperlipidemia Recurrent major depressive disorder, in partial remission (HCC) ([facility]) Type 2 diabetes mellitus with hyperglycemia, with long-term current use of insulin ([facility]) Acute non-recurrent pansinusitis- Primary documented in this encounter [facility]* Diagnosis Wellness examination- Primary Encounter for screening mammogram for malignant neoplasm of breast Heart murmur, systolic Preoperative clearance Unspecified pre-operative examination Primary hypertension ([facility]) Unspecified essential hypertension BMI 50.0-59.9, adult ([facility]) Mixed hyperlipidemia ([facility]) Mixed hyperlipidemia Recurrent major depressive disorder, in partial remission (HCC) ([facility]) Type 2 diabetes mellitus with hyperglycemia, with long-term current use of insulin ([facility]) Acute pain of right shoulder- Primary Arthritis of right acromioclavicular joint Biceps tendinitis, right Partial nontraumatic tear of rotator cuff, right documented in this encounter [facility] HealthcareEvaluation note* Diagnosis Wellness examination- Primary Encounter for screening mammogram for malignant neoplasm of breast Heart murmur, systolic Preoperative clearance Unspecified pre-operative examination Primary hypertension ([facility]) Unspecified essential hypertension BMI 50.0-59.9, adult ([facility]) Mixed hyperlipidemia ([facility]) Mixed hyperlipidemia Recurrent major depressive disorder, in partial remission (HCC) ([facility]) Type 2 diabetes mellitus with hyperglycemia, with long-term current use of insulin ([facility]) Bursitis of left foot- Primary Acquired keratoderma Pain in left foot Pain in soft tissues of limb Difficulty walking Difficulty in walking documented in this encounter [facility] HealthcareEvaluation note* Diagnosis Onset Date Resolution Status Admit Date Dietary counseling and surveillance acute May 25, 2024 9:32am Encounter for long-term (cur rent) insulin use acute May 25, 2024 9:32am Hyperlipemia acute May 25, 2 025 9:32am Hypertension acute May 25, 2 025 9:32am Type 2 diabetes mellitus wit h hyperglycemia acute May 25, 2024 9:32am Vitamin D deficiency, unspecified ac alfonso May 25, 2024 9:32am [facility] Work Phone: Evaluation note* Diagnosis Wellness examination- Primary Encounter for screening mammogram for malignant neoplasm of breast Heart murmur, systolic Preoperative clearance Unspecified pre-operative examination Primary hypertension (CMS/HCC) Unspecified essential hypertension BMI 50.0-59.9, adult (CMS/HCC) Mixed hyperlipidemia (CMS/HCC) Mixed hyperlipidemia Recurrent major depressive disorder, in partial remission (HCC) ([facility]/HCC) Type 2 diabetes mellitus with hyperglycemia, with long-term current use of insulin (CMS/HCC) Pre-op examination- Primary documented in this encounter [facility] HealthcareEvaluation note* Diagnosis Wellness examination- Primary Encounter for screening mammogram for malignant neoplasm of breast Heart murmur, systolic Preoperative clearance Unspecified pre-operative examination Primary hypertension (CMS/HCC) Unspecified essential hypertension BMI 50.0-59.9, adult (CMS/HCC) Mixed hyperlipidemia (CMS/HCC) Mixed hyperlipidemia Recurrent major depressive disorder, in partial remission (HCC) ([facility]) Type 2 diabetes mellitus with hyperglycemia, with long-term current use of insulin ([facility]) Acute laryngitis- Primary documented in this encounter [facility] HealthcareEvaluation note* Diagnosis Wellness examination- Primary Encounter for screening mammogram for malignant neoplasm of breast Heart murmur, systolic Preoperative clearance Unspecified pre-operative examination Primary hypertension (CMS/HCC) Unspecified essential hypertension BMI 50.0-59.9, adult (CMS/HCC) Mixed hyperlipidemia (CMS/HCC) Mixed hyperlipidemia Recurrent major depressive disorder, in partial remission (HCC) ([facility]) Type 2 diabetes mellitus with hyperglycemia, with long-term current use of insulin ([facility]) Nonrheumatic aortic valve stenosis- Primary Arthritis of left acromioclavicular joint Preoperative clearance Unspecified pre-operative examination Primary hypertension (CMS/HCC) Unspecified essential hypertension Malignant neoplasm of endometrium (CMS/HCC) Malignant neoplasm of corpus uteri, except isthmus Stage 3a chronic kidney disease (HCC) (CMS/HCC) BMI 50.0-59.9, adult ([facility]/HCC) documented in this encounter [facility] HealthcareEvaluation note* Diagnosis Wellness examination- Primary Encounter for screening mammogram for malignant neoplasm of breast Heart murmur, systolic Preoperative clearance Unspecified pre-operative examination Primary hypertension (CMS/HCC) Unspecified essential hypertension BMI 50.0-59.9, adult (CMS/HCC) Mixed hyperlipidemia (CMS/HCC) Mixed hyperlipidemia Recurrent major depressive disorder, in partial remission (HCC) ([facility]) Type 2 diabetes mellitus with hyperglycemia, with long-term current use of insulin ([facility]) Primary hypertension ([facility]) Unspecified essential hypertension documented in this encounter [facility] HealthcareEvaluation note* Diagnosis Wellness examination- Primary Encounter for screening mammogram for malignant neoplasm of breast Heart murmur, systolic Preoperative clearance Unspecified pre-operative examination Primary hypertension ([facility]) Unspecified essential hypertension BMI 50.0-59.9, adult ([facility]) Mixed hyperlipidemia ([facility]) Mixed hyperlipidemia Recurrent major depressive disorder, in partial remission (HCC) ([facility]) Type 2 diabetes mellitus with hyperglycemia, with long-term current use of insulin ([facility]) S/P arthroscopy of right shoulder- Primary documented in this encounter [facility] HealthcareEvaluation note* Diagnosis Wellness examination- Primary Encounter for screening mammogram for malignant neoplasm of breast Heart murmur, systolic Preoperative clearance Unspecified pre-operative examination Primary hypertension ([facility]) Unspecified essential hypertension BMI 50.0-59.9, adult ([facility]) Mixed hyperlipidemia ([facility]) Mixed hyperlipidemia Recurrent major depressive disorder, in partial remission (HCC) ([facility]) Type 2 diabetes mellitus with hyperglycemia, with long-term current use of insulin ([facility]) S/P arthroscopy of right shoulder- Primary documented in this encounter [facility] HealthcareHistory general Narrative - Reported* Type Description Date Medical History RSD Medical History fibromyalgia Medical History hypertension Medical History type II diabetes Surgical History C section X3 Surgical History rotator cuff tear repair Surgical History back surgery x3 Surgical History knee surgery Surgical History hysteroscopy 05/30 Surgical History c5-c6 plates & screws Surgical History D&C 05/30 Hospitalization History see above [facility] Other History general Narrative - Reported* Type [...] replacement, Left 12/2020 Hospitalization History see above [facility] Other History general Narrative - Reported* Type [...] replacement, Left 12/2020 Hospitalization History see above [facility] Other History general Narrative - Reported* Type [...] bilatera l 2021 Hospitalization History see above [facility] Other History general Narrative - Reported* Type [...] Hospitalization History see above Hospitalization History [facility] [place]- Flu 02/2022 [facility] Other Hishwhe general Narrative - Reported* Type Description Date [...] Hospitalization History see above Hospitalization History [facility] [place]- Flu 02/2022 [facility] Other History general Narrative - ReportedNortFashion & You Other InstructionsNot on filedocumented in this encounter [facility] filedocumented in [facility] Narrative* Consultation (Routine) - Authorized Specialty Diagnoses / Procedures Referred By Alok carson Referred To Contact Physical Therapy Diagnoses Biceps tendinitis, right Procedures MA OFFICE/OUTPATIENT NEW HIGH MDM 60 MINUTES Jr. Rica Rodriguez, DO [address] [place] [address] Phone: tel: fax: NomanSean gaspar, PT [address] [place] [address] Phone: tel: fax: Referral ID Status Reason Start Date Expiration Date Visits Requested Visits Authorized [id number] Authorized Consult and Treat 03/16/2024 09/12/2024 6 6 [facility] Summary Purpose Family History No Family History [...] month f/u-DMN f/u-METER December 30, 2023 9:39am Chief Complaint Admit Date m24.811 March 10, 2024 7 :30am DMN f/u / no meter May 25, 2024 9:32 am Reason for Visit Admit Date Dietary counseling and surveillance Apri l 2024 9:32am Encounter for long-term (current) insuli n use May 25, 2024 9:32am Hyperlipemia May 25, 2024 9:32 am Hypertension May 25, 2024 9:32 am Type 2 diabetes mellitus with hyperglyce bobby May 25, 2024 9:32am Vitamin D deficiency, unspecified May 25, 2024 9:32am Reason for Referral Reason EMG bilat lower extr emities Diagnosis 1 BMI 50.0-59.9, adult (Z68.43) Referral Organization [facility] urosurgery Referring Provider First Name Martine Referring Provider Last Name Jatinder Referring Provider Specialty Nurse Pracalli marquez Referred Organization [facility] Referred Address [address] [place], [place],[address] Referred Provider Specialty Neurology Referral Priority Routine Reason evaluate and treat - tremors Diagnosis 1 BMI 50.0-59.9, adult (Z68.43) Referral Organization [facility] urosurgery Referring Provider First Name Martine Referring Provider Last Name Jatinder Referring Provider Specialty Nurse Pract itioner Referred Organization [facility] Referred Address [address] [place], [place],[address] Referred Provider Specialty Neurology Referral Priority Routine Reason Evaluate and treat - osteoporosis Diagnosis 1 BMI 50.0-59.9, adult (Z68.43) Referral Organization [facility] Referring Provider First Name Martine Referring Provider Last Name Tobias Referring Provider Specialty Nurse Pract itioner Referred Organization [facility] Referred Provider Jennifer Siu Referred Address [address] [place], [place],[address] Referred Provider Specialty Nurse Nancy mendez Referral Priority Routine Additional Source Comments INFORMATION SOURCE (unrecogn ized section and content) DATE CREATED AUTHOR 08/12/2017 [facility] DATE CREATED AUTHOR AUTHOR'S ORGANIZ ATION 07/02/2022 [facility] DATE CREATED AUTHOR AUTHOR'S ORGANIZ ATION 05/31/2023 [facility] DATE CREATED AUTHOR AUTHOR'S ORGANIZ ATION 06/04/2023 [facility] DATE CREATED AUTHOR AUTHOR'S ORGANIZ ATION 06/30/2023 [facility] DATE CREATED AUTHOR AUTHOR'S ORGANIZ ATION 04/12/2024 [facility] DATE CREATED AUTHOR AUTHOR'S ORGANIZ ATION 05/29/2024 [facility] DATE CREATED AUTHOR AUTHOR'S ORGANIZ ATION 06/09/2024 [facility] DATE CREATED AUTHOR AUTHOR'S ORGANIZ ATION 06/25/2024 [facility] DATE CREATED AUTHOR AUTHOR'S ORGANIZ ATION 07/21/2024 [facility] EPIC REASON FOR VISIT (unrecogniz ed section and content) Specialty Diagnoses / Procedures Referred By Alok carson Referred To Contact Diagnoses Abnormal stress test Abnormal stress test [R94.39] Procedures MA CATH PLMT L HRT & ARTS W/NJX & ANGIO IMG S&I MA CATH PLMT L HRT & ARTS W/NJX & ANGIO IMG S&I Left heart cath / [place] [address] [facility] [address] [place] [address] [facility] [address] [place] [address] Referral ID Status Reason Start Date Expiration Date Visits Re quested Visits Authorized [id number] 1 1 Reason Comments Pain Reason Onset Date Comments Med Refill 12/06/2023 Reason Comments Pain Reason Onset Date Comments Med Refill 01/11/2024 Reason Comments URI Reason Comments Follow-up Reason Onset Date Comments MRI Concerns 03/02/2024 Reason Comments Leg Swelling Reason Comments Med Refill Reason Comments Follow-up Reason Onset Date Comments Procedure 06/04/2023 Out of network Reason Comments New Patient Reason Comments IPK Lesion Lesli Clay 64yo patient presents with Left foot callus pain. /BS 103 A1C 9.7 (01/2025)Dr. Cabrera/Jo 04/12/2024 SS 9 Reason Comments Pre-op Exam Reason Onset Date Comments Med Refill 06/16/2024 Reason Comments Post-op Care Teams (unrecognized sec tion and content) [...] Active Start: 2023 End: May 22, 2023 Commissions Specialist Relationship Specialty Start Date End Date Pastora Kohler APRN - STICKER MACHINE OPERATOR [address] [place] [address] PCP - General Nurse Practitioner [facility] 06/15/23 Team Status: Active Member Role Status Dates NON STAFF Primary Care Provider Active Team Status: Active Member Role Status Dates Julien Goldstein Attending Provider Active Start: Adan coles 2023 Team Status: Inactive Member Role Status Dates Lili Burgos APRN Attending Provider Active Start: September 23, 2023 End: September 23, 2023 NON STAFF Primary Care Provider Active Start: September 23, 2023 End: September 23, 2023 Commissions Specialist Relationship Specialty Start Date End Date Jennifer Cabrera MD [address] [place] [address] PCP - General Family Medicine 04/10/23 Pastora Kohler VEGETABLE INSPECTOR [address] [place] [address] PCP - [facility] 02/16/23 03/18/80 Pastora Kohler VEGETABLE INSPECTOR [address] [place] [address] Nurse Practitioner Family Medicine 04/10/23 Commissions Specialist Relationship Specialty Start Date End Date Jennifer Cabrera MD [address] [place] [address] PCP - General Family Medicine 04/10/23 Pastora Kohler NP [address] [place] [address] PCP - [facility] 02/16/23 03/18/80 Pastora Kohler NP [address] [place] [address] Nurse Practitioner Family Medicine 04/10/23 Commissions Specialist Relationship Specialty Start Date End Date Jennifer Cabrera MD [address] [place] [address] PCP - General Family Medicine 04/10/23 Pastora Kohler VEGETABLE INSPECTOR [address] [place] [address] PCP - [facility] 02/16/23 03/18/80 Pastora Kohler NP [address] [place] [address] Nurse Practitioner Family Medicine 04/10/23 Commissions Specialist Relationship Specialty Start Date End Date Jennifer Cabrera MD [address] [place] [address] PCP - General Family Medicine 04/10/23 Pastora Kohler NP [address] [place] [address] PCP - [facility] 02/16/23 03/18/80 Pastora Kohler NP [address] [place] [address] Nurse Practitioner Family Medicine 04/10/23 Commissions Specialist Relationship Specialty Start Date End Date Jennifer Cabrera MD [address] [place] [address] PCP - General Family Medicine 04/10/23 Pastora Kohler NP [address] [place] [address] PCP - [facility] 02/16/23 03/18/80 Pastora Kohler NP [address] [place] [address] Nurse Practitioner Family Medicine 04/10/23 Team Status: [...] December 30, 2023 End: December 30, 2023 Commissions Specialist Relationship Specialty Start Date End Date Jennifer Cabrera MD [address] [place] [address] PCP - General Family Medicine 04/10/23 Pastora Kohler NP [address] [place] [address] PCP - [facility] 02/16/23 03/18/80 Pastora Kohler NP [address] [place] [address] Nurse Practitioner Family Medicine 04/10/23 Commissions Specialist Relationship Specialty Start Date End Date Jennifer Cabrera MD [address] [place] [address] PCP - General Family Medicine 04/10/23 Pastora Kohler NP [address] [place] [address] PCP - [facility] 02/16/23 03/18/80 Pastora Kohler NP [address] [place] [address] Nurse Practitioner Family Medicine 04/10/23 Commissions Specialist Relationship Specialty Start Date End Date Jennifer Cabrera MD [address] [place] [address] PCP - General Family Medicine 04/10/23 Pastora Kohler NP [address] [place] [address] PCP - [facility] 02/16/23 03/18/80 Pastora Kohler NP [address] [place] [address] Nurse Practitioner Family Medicine 04/10/23 Commissions Specialist Relationship Specialty Start Date End Date Jennifer Cabrera MD [address] [place] [address] PCP - General Family Medicine 04/10/23 Pastora Kohler NP [address] [place] [address] PCP - [facility] 02/16/23 03/18/80 Pastora Kohler NP [address] [place] [address] Nurse Practitioner Family Medicine 04/10/23 Commissions Specialist Relationship Specialty Start Date End Date Jennifer Cabrera MD [address] [place] [address] PCP - General Family Medicine 04/10/23 Psatora Kohler NP [address] [place] [address] PCP - [facility] 02/16/23 03/18/80 Pastora Kohler NP [address] [place] [address] Nurse Practitioner Family Medicine 04/10/23 Commissions Specialist Relationship Specialty Start Date End Date Jennifer Cabrera MD [address] [place] [address] PCP - General Family Medicine 04/10/23 Pastora Kohler [employer]GET[employer] [address] [place] [address] PCP - [facility] 02/16/23 03/18/80 Pastora Kohler NP [address] [place] [address] Nurse Practitioner Family Medicine 04/10/23 Commissions Specialist Relationship Specialty Start Date End Date Jennifer Cabrera MD [address] [place] [address] PCP - General Family Medicine 04/10/23 Pastora Kohler NP [address] [facility] [place] [address] PCP - [facility] 02/16/23 03/18/80 Pastora Kohler NP [address] [facility] [place] [address] Nurse Practitioner Family Medicine 04/10/23 Commissions Specialist Relationship Specialty Start Date End Date Jennifer Cabrera MD [address] [facility] [place] [address] PCP - General Family Medicine 04/10/23 Pastora Kohler NP [address] [facility] [place] [address] PCP - [facility] 02/16/23 03/18/80 Pastora Kohler NP [address] [facility] [place] [address] Nurse Practitioner Family Medicine 04/10/23 Team Status: Active Member Role Status Dates [facility] Gal[facility] Primary Care Provider Activ e Team Status: Active Member Role Status Dates [facility] Gal[facility] Primary Care Provider, Attending Provider Active Start: March 01, 2024 Team Status: Inactive Member Role Status Dates Lauren Torres PA-C Attending Provider Active S tart: March 10, 2024 End: March 10, 2024 [facility] Galvez Primary Care Provider Activ e Start: March 10, 2024 End: March 10, 2024 Commissions Specialist Relationship Specialty Start Date End Date Jennifer Cabrera MD [address] [facility] [place] [address] PCP - General Family Medicine 04/10/23 Pastora Kohler NP [address] [place] [address] PCP - [facility] 02/16/23 03/18/80 Pastora Kohler NP [address] [place] [address] Nurse Practitioner Family Medicine 04/10/23 Commissions Specialist Relationship Specialty Start Date End Date Jennifer Cabrera MD [address] [place] [address] PCP - General Family Medicine 04/10/23 Pastora Kohler NP [address] [place] [address] PCP - [facility] 02/16/23 03/18/80 Pastora Kohler NP [address] [place] [address] Nurse Practitioner Family Medicine 04/10/23 Commissions Specialist Relationship Specialty Start Date End Date Jennifer Cabrera MD [address] [place] [address] PCP - General Family Medicine 04/10/23 Pastora Kohler NP [address] [place] [address] PCP - [facility] 02/16/23 03/18/80 Pastora Kohler NP [address] [place] [address] Nurse Practitioner Family Medicine 04/10/23 Commissions Specialist Relationship Specialty Start Date End Date Judith Patel JoellenDO [address] [place] [address] PCP - General Family Medicine 02/19/22 Commissions Specialist Relationship Specialty Start Date End Date Judith Patel DO [address] [place] [address] PCP - General Family Medicine 02/19/22 Commissions Specialist Relationship Specialty Start Date End Date Jennifer Cabrera MD [address] [facility] [address] PCP - General Family Medicine 04/10/23 Pastora Kohler NP [address] [facility] [place] [address] PCP - [facility] 02/16/23 03/18/80 Pastora Kohler NP [address] [facility] [place] [address] Nurse Practitioner Family Medicine 04/10/23 Commissions Specialist Relationship Specialty Start Date End Date Jennifer Cabrera MD [address] [facility] [place] [address] PCP - General Family Medicine 04/10/23 Pastora Kohler NP [address] [place] [address] PCP - [facility] 02/16/23 03/18/80 Pastora Kohler NP [address] [facility] [place] [address] Nurse Practitioner Family Medicine 04/10/23 Commissions Specialist Relationship Specialty Start Date End Date Jennifer Cabrera MD [address] [place] [address] PCP - General Family Medicine 04/10/23 Pastora Kohler NP [address] [place] [address] PCP - [facility] 02/16/23 03/18/80 Pastora Kohler NP [address] [place] [address] Nurse Practitioner Family Medicine 04/10/23 Commissions Specialist Relationship Specialty Start Date End Date Jennifer Cabrera MD [address] [place] [address] PCP - General Family Medicine 04/10/23 Pastora Kohler NP [address] [place] [address] PCP - [facility] 02/16/23 03/18/80 Pastora Kohler NP [address] [place] [address] Nurse Practitioner Family Medicine 04/10/23 Commissions Specialist Relationship Specialty Start Date End Date Jennifer Cabrera MD [address] [place] [address] PCP - General Family Medicine 04/10/23 Pastora Kohler NP [address] [place] [address] PCP - [facility] 02/16/23 03/18/80 Pastora Kohler NP [address] [place] [address] Nurse Practitioner Family Medicine 04/10/23 Team Status: Inactive Member Role Status Dates Pastora Kohler NP-C Primary Care Provider Activ e Start: May 25, 2024 End: May 25, 2024 Lili Burgos APRN Attending Provider Active Start: May 25, 2024 End: May 25, 2024 Team Status: Inactive Member Role Status Dates Lili Burgos APRN Attending Provider Active Start: May 25, 2024 End: May 25, 2024 Commissions Specialist Relationship Specialty Start Date End Date Jennifer Cabrera MD [address] [place] [address] PCP - General Family Medicine 04/10/23 Pastora Kohler NP [address] [facility] [address] [facility] 02/16/23 03/18/80 Pastora Kohler NP [address] [facility] [address] Nurse Practitioner Family Medicine 04/10/23 Commissions Specialist Relationship Specialty Start Date End Date Jennifer Cabrera MD [address] [place] [address] PCP - General Family Medicine 04/10/23 Pastora Kohler NP [address] [facility] [place] [address] PCP [facility] 02/16/23 03/18/80 Pastora Kohler NP [address] [facility] [place] [address] Nurse Practitioner [facility] 04/10/23 Commissions Specialist Relationship Specialty Start Date End Date Jennifer Cabrera MD [address] [facility] [place] [address] PCP - [facility] 04/10/23 Pastora Kohler NP [address] [facility] [place] [address] PCP - [facility] 02/16/23 03/18/80 Pastora Kohler NP [address] [facility] [place], [place] [address] Nurse Practitioner Family Medicine 04/10/23 Goals (unrecognized [...] 1239 (New Bag - Prov ider: Katja Armando RN)1455 (Stopped - Provider: Tabatha Ledezma RN) PRN [...] PRN, Starting on Thu06/30/23 at 1206, Until e 06/30/23 at 1229, Intra-procedure(Cath) 1206 (Given - Provid er: CARLOS CHAPPELL) heparin (porcine) 4,000 Units, nitroGLYCERIN 300 mcg, verapamil (ISOPTIN) 2.5 mg 6.5 mL syringe (CANCELED) PRN, Starting on Thu06/30/23 at 1218, Intra-procedure(Cath) 1218 (Given - Provid er: Piotr Logan MD) iopamidol (ISOVUE-370) 76 % injection (CANCELED) PRN, Starting on e 06/30/23 at 1227, Until 06/30/23 at 1229, Intra-procedure(Cath) 1227 (Given - Provid er: Piotr Logan MD) lidocaine 1 % injection (CANCELED) PRN, Starting on e 06/30/23 at 1208, Until 06/30/23 at 1229, Intra-procedure(Cath) 1208 (Given - Provid er: Piotr Logan MD) midazolam (VERSED) injection (CANCELED) PRN, Starting on e 06/30/23 at 1206, Until e 06/30/23 at 1229, Intra-procedure(Cath) 1206 (Given - Provid er: CARLOS CHAPPELL) ondansetron (ZOFRAN) injection 4 mg 4 mg, IntraVENous, EVERY 6 HOURS PRN, Starting on e 06/30/23 at 1238, Until Discontinued, Nausea, Recovery(Cath) sodium chloride flush 0.9 % injection 5-40 mL 5-40 mL, IntraVENous, PRN, Starting on 06/30/23 at 1238, Until Discontinued, Line Care, After [...] BE BASED ON THE PRIMARY CLINICAL RECORDS. [facility]. provides no warranty or guarantee of the accuracy or completeness of information in this document.
--- NOTE | 2024-07-27 09:32 | PM.CN ---
Consult Note: HPI Data of Consult Patient: known to practice within the last 3 years Requesting Physician: Shama Allen NP Primary Care Provider: [facility] Consult Narrative Reason for consult: F/u Narrative: Lesil Clay a pleasant 64 year old female presents for evaluation and management of chronic low back pain and bilateral hip/buttock pain and left knee pain. Today pain 3/10 increasing to 8/10 with activity. Patient reports aching, pressure, burning. Patient finding benefit to current medication regimen without side effects. She has failed to benefit from lumbar facet MBBs, and caudal ESIs. At previous visits we discussed SCS trial, she is not interested at this time as she is having to care for her ill . cc:: CC: Shama Allen NP Review of Systems ROS Status of ROS 10 or more systems reviewed and unremarkable except as noted in history and below [facility] Medical History Pelvic pain ?R10.2 - Pelvic and perineal pain (ICD-10) Post-menopausal bleeding ?N95.0 - Postmenopausal bleeding (ICD-10) Fibromyalgia ?M79.7 - Fibromyalgia (ICD-10) Arthritis ?M19.90 - Unspecified osteoarthritis, unspecified site (ICD-10) Neck pain ?M54.2 - Cervicalgia (ICD-10) Back pain ?M54.9 - Dorsalgia, unspecified (ICD-10) Depression ?F32.A - Depression, unspecified (ICD-10) Panic attacks ?F41.0 - Panic disorder [episodic paroxysmal anxiety] (ICD-10) COVID-19 ?U07.1 - COVID-19 (ICD-10) Dyspnea on exertion ?R06.09 - Other forms of dyspnea (ICD-10) High cholesterol ?E78.00 - Pure hypercholesterolemia, unspecified (ICD-10) Diabetes ?E11.9 - Type 2 diabetes mellitus without complications (ICD-10) Delayed recovery from anesthesia Anesthesia complication ?T88.59XA - Other complications of anesthesia, initial encounter (ICD-10) Postmenopausal ?Z78.0 - Asymptomatic menopausal state (ICD-10) RSD (reflex sympathetic dystrophy) ?G90.50 - Complex regional pain syndrome I, unspecified (ICD-10) Low back pain ?M54.50 - Low back pain, unspecified (ICD-10) Osteoarthritis ?M19.90 - Unspecified osteoarthritis, unspecified site (ICD-10) Shingles ?B02.9 - Zoster without complications (ICD-10) Anxiety ?F41.9 - Anxiety disorder, unspecified (ICD-10) Obesity ?E66.9 - Obesity, unspecified (ICD-10) Heartburn ?R12 - Heartburn (ICD-10) Acid reflux ?K21.9 - Gastro-esophageal reflux disease without esophagitis (ICD-10) Diabetes 1.5, managed as type 2 ?E13.9 - Other specified diabetes mellitus without complications (ICD-10) Hypercholesterolemia ?E78.00 - Pure hypercholesterolemia, unspecified (ICD-10) Hypertension ?I10 - Essential (primary) hypertension (ICD-10) Surgical History S/P epidural steroid injection ?Z92.241 - Personal history of systemic steroid therapy (ICD-10) History of carpal tunnel release ?Z98.890 - Other specified postprocedural states (ICD-10) History of arthroplasty of knee ?Z96.659 - Presence of unspecified artificial knee joint (ICD-10) History of fusion of cervical spine ?Z98.1 - Arthrodesis status (ICD-10) H/O hemorrhoidectomy ?Z98.890 - Other specified postprocedural states (ICD-10) History of delivery ?Z98.891 - History of uterine scar from previous surgery (ICD-10) Hx of arthroscopy of knee ?Z98.890 - Other specified postprocedural states (ICD-10) H/O repair of rotator cuff ?Z98.890 - Other specified postprocedural states (ICD-10) H/O dilation and curettage ?Z98.890 - Other specified postprocedural states (ICD-10) History of hysteroscopy ?Z98.890 - Other specified postprocedural states (ICD-10) H/O lumbar discectomy ?Z98.890 - Other specified postprocedural states (ICD-10) History of lumbar laminectomy ?Z98.890 - Other specified postprocedural states (ICD-10) S/P trigger finger release ?Z98.890 - Other specified postprocedural states (ICD-10) Family History Other Family history of heart disease Family history of hypertension Family history of myocardial infarction Social History Within the past year, how often did you have a drink containing alcohol: never Score interpretation: A score less than 3 is consistent with normal alcohol consumption. Smoking status: Former smoker Non-prescribed substance use: denies use Highest level of school completed/degree received: high school graduate Meds Home Medications and Allergies Home Medications ?Medication ?Instructions ?Recorded ?Confirmed ?Type atorvastatin 40 mg tablet 40 mg PO QDAY 07/16/22 06/02/23 History bupropion HCl 300 mg 24 hr tablet, 300 mg PO QDAY 07/16/22 06/02/23 History extended release (Wellbutrin XL) metoprolol tartrate 25 mg tablet 25 mg PO BID 07/16/22 06/02/23 History tizanidine 4 mg capsule (Zanaflex) 4 mg PO Q12H 07/16/22 06/02/23 History aripiprazole 15 mg tablet (Abilify) 15 mg PO DAILY 05/12/23 06/02/23 History insulin degludec 100 unit/mL (3 48 unit subcut DAILY 05/12/23 06/02/23 History mL) subcutaneous pen (Tresiba FlexTouch U-100 insulin) losartan 50 mg-hydrochlorothiazide 1 tab PO DAILY 05/12/23 06/02/23 History 12.5 mg tablet (Hyzaar) semaglutide 2 mg/dose (8 mg/3 mL) 2 mg subcut QWEEK 05/12/23 06/02/23 History subcutaneous pen injector (Ozempic) hydroxyzine pamoate 25 mg capsule 25 mg PO QID PRN anxiety 08/06/23 08/06/23 History nortriptyline 50 mg capsule 50 mg PO DAILY 08/06/23 08/06/23 History naloxone 4 mg/actuation nasal 4 mg intranasal Q2M PRN opioid 02/03/24 Rx spray (Narcan) overdose #2 ea oxycodone-acetaminophen 7.5 mg-325 1 tab PO TID PRN pain #90 tabs 02/03/24 Rx mg tablet (Percocet) pregabalin 100 mg capsule (Lyrica) 100 mg PO TID #90 caps 05/31/24 Rx oxycodone-acetaminophen 7.5 mg-325 1 tab PO TID PRN pain #90 tabs 07/06/24 Rx mg tablet (Percocet) pregabalin 100 mg capsule (Lyrica) 100 mg PO TID #90 caps 07/14/24 Rx Allergies Allergy/AdvReac Type Severity Reaction Status Date / Time No Known Drug Allergies Allergy Verified 06/02/23 06:58 Exam Constitutional Documenting provider has reviewed patient's vital signs: yes Common normals: no apparent distress, oriented x3, healthy appearing, alert and well nourished General appearance: cooperative HENMT Common normals: normocephalic, hearing grossly normal bilaterally and moist oral mucous membranes Head and scalp: normocephalic Eye Common normals: PERRL Pupil: PERRL Neck & C-Spine Common normals: full ROM General: normal visual inspection Chest Common normals: inspection of chest normal Respiratory Common normals: normal respiratory effort, no retractions and no use of accessory muscles Back & Pelvis Thoracic spine/upper back: normal to inspection and thoracic ROM normal Lumbar spine/lower back: ROM limited, pain with ROM and straight leg raise negative bilaterally Sacroiliac joints: SI joint(s) abnormal Other: positive fabers/fadirs gaenslens and thigh thrust, tender over bilateral PSIS tenderness over bilateral GTB Extremity Common normals: normal to inspection and full ROM Right lower extremity: knee joint Left lower extremity: knee joint Other: R/L knee pain, limited ROM, decrease in strength. Neuro Common normals: oriented x3 Sensorium/orientation: alert Gait (neuro): antalgic Motor exam: strength 5/5 throughout and no movement abnormalities noted Psych Common normals: mental status grossly normal, thought process normal, cooperative, affect normal, speech normal and activity/motor behavior normal Speech: normal speech Thought process: normal thought process Results Additional Findings Additional findings: If on a controlled substance or opioids, I have checked an [place] report on this patient and there are no aberrancies noted in the prescribing history.??If on a controlled substance or opioid a drug screen was completed and reviewed within the last year, and if there has not been a drug screen completed we ordered one today to monitor higher risk, state monitored pain medication use. As part of providing excellent, safe, comprehensive care, the following was completed at our patient's visit: 1. A medication reconciliation and review to ensure accurate knowledge of current/active medications, including asking our patients to inform us about any [id number] medications or herbal remedies/nutritional supplements/alternative remedies. 2. A review to specifically ensure our patients have had annual screening for screening for depression, screening for tobacco use, and screening for unhealthy alcohol use. For concerning screenings had a discussion with the patient, provided patient education, and recommended follow-up with primary care provider when appropriate. If patient noted with a risk of falling, they received education on strength, gait, and balance training to prevent future risk of falling. Portions of this note may have been carried over from the previous visit and updated as appropriate. Please note this office utilizes paper charting in addition to the electronic medical record. A list of current medications, vitals, and PMH is available there as the clinical staff outside of myself do not have access to [employer] charting during the clinic day operations. As part of providing quality comprehensive care the current medications, vitals, and PMH were reviewed in the paper chart. Assessment and Plan Assessment and Plan (1) Sacroiliitis: (2) Failed back syndrome: (3) Chronic prescription opiate use: Assessment and Plan: I feel these medications are improving the patient's quality of life and allow them to tolerate activities of daily living as well as participate in recreational activity.? The patient does not report intolerable side effects. The patient is NOT opioid naive and non-pharmacologic and non-opioid treatment has failed to significantly relieve the patient's pain and improve functionality. The patient has a diagnosis that is related to a somatic or visceral pain etiology. ? ?? I reviewed with the patient the potential risks and side effects with the use of? opioid medications including but not limited to respiratory depression,? sedation, and even . I verified the patient has access to naloxone should? these effects occur. I advised the patient to avoid the use of any other? sedation substances including alcohol, THC, and benzodiazepines while? taking opioid medications due to the risk of compounding side effects and? detrimental outcomes. I reviewed the [employer], pain treatment agreement, urine? drug screen, and opioid start talking forms. The patient was advised to let? their family know they had Naloxone in case they would need to administer? the medication.? ?? A drug screen was completed within the last year, and no aberrancies were noted regarding their use of controlled substances. The patient understands they are subject to the terms and conditions of the pain contract that they have signed. ? ?? I have checked an [place]AR[place] report on this patient today and there are no aberrancies noted in the prescribing history.? (4) Bilateral knee pain: (5) Obesity: Assessment and Plan: The patient was counseled that proper dietary changes and consistent participation in a home exercise plan can lead to weight loss. Weight loss can help to improve functionality in patients with chronic pain.? (6) Lumbar spondylosis: (7) Spinal stenosis of lumbar region: (8) Chronic knee pain after total replacement of knee joint: (9) Myalgia, other site: Plan discussed bilateral SIJ injection under fluoroscopy for sacroilitis, pt to call to schedule continue pregabalin 100mg TID, risks vs benefits reviewed continue percocet to 7.5-325mg BID-TID PRN moderate to severe pain, continues to find functional improvement without side effects. reports shes able to stand and walk for longer periods of time and complete housework/cook with assistance of medication, pain goes from 6-7 to 2-3 for around four hours. narcan discussed and prescribed at previous visit continue zanaflex 4mg HS PRN pain/spasms f/u 2 weeks after injection, 3 months for medication management
== END 2024-07-27 09:07 | disposition home or self-care (01) ==
PROVIDERS: Visit Provider Nurse Practitioner
DX: M46.1 Sacroiliitis, not elsewhere classified (principal); M96.1 Postlaminectomy syndrome, not elsewhere classified; Z79.891 Long term (current) use of opiate analgesic; M47.816 Spondylosis without myelopathy or radiculopathy, lumbar region; M25.561 Pain in right knee; M25.562 Pain in left knee; M48.062 Spinal stenosis, lumbar region with neurogenic claudication; Z96.659 Presence of unspecified artificial knee joint; M79.18 Myalgia, other site; E66.89 Other obesity not elsewhere classified
CPT/HCPCS: G0463

== ENCOUNTER 2024-10-12 08:40 | Outpatient (OUT) | payer MEDICARE, SELFPAY ==
--- OUTSIDE RECORDS SUMMARY | 2024-10-12 08:47 | XMS_ITS | CCD ---
Author Organization [facility] Care Team Providers Care Technical Services Rep Name Role Phone QUE BLAKE Unavailable Unavailable QUE BLAKE Unavailable Unavailable SELF, REFERRED Unavailable Unavailable OLIVE, ROSALES Unavailable Unavailable NM Unavailable Unavailable QUE BLAKE Unavailable Unavailable WIEPKING, LAUREN Unavailable Unavailable SELF, REFERRED Unavailable Unavailable RICKY, JULIEN Unavailable Unavailable OLIVE, ROSALES Unavailable Unavailable QUE BLAKE Unavailable Unavailable QUE BLAKE Unavailable Unavailable QUE BLAKE Unavailable Unavailable OLIVE, ROSALES Unavailable Unavailable Clifford Munoz Jr. Unavailable [phone] Clifford Munoz Unavailable Lili Burgos Unavailable [facility] Unava ilable OLIVIER ., DR ADAM Liu Admitting Unavailable AGUAYO ., DR ADAM Liu Attending Unavailable HERNANDEZ .ALICIA Consulting Unavailable LAKSHMIPATHY ., NARENDRANLEN Consulting Daphne vailable [facility] Unava ilable LAKSHMIPATHY ., NARENDRANATH Admitting Daphne vailable LAKSHMIPATHY ., NARENDRANATH Attending Daphne vailable [facility] Unava ilable DR BLANE THOMAS Consulting Unavailable HERNANDEZ .ALICIA Admitting Unavailable HERNANDEZ .ALICIA Attending Unavailable HERNANDEZ ., ALICIA Consulting Unavailable [facility] Unava ilable HALKER ., JASON Attending Unavailable HALKER ., JASON Consulting Unavailable LAKSHMIPATHY ., NARENDRANATH Admitting Daphne vailable [facility] Unava ilable HALKER ., JASON Admitting Unavailable HALKER ., JASON Attending Unavailable LAKSHMIPATHY ., NARENDRANATH Consulting Daphne vailable [facility] Unava ilable AGUAYO ., DR ADAM Liu Admitting Unavailable AGUAYO ., DR ADAM Liu Attending Unavailable HERNANDEZ ., ALICIA Consulting Unavailable [facility] Unava ilable HERNANDEZ ., ALICIA Consulting Unavailable AGUAYO ., DR ADAM Liu Attending Unavailable AGUAYO ., DR ADAM Liu Admitting Unavailable [facility] Unava ilable AGUAYO ., DR ADAM Liu Admitting Unavailable AGUAYO ., DR ADAM Liu Attending Unavailable HERNANDEZ ., ALICIA Consulting Unavailable [facility] Unava ilable LAKSHMIPATHY ., NARENDRANATH Admitting Daphne vailable LAKSHMIPATHY ., NARENDRANATH Attending Daphne vailable LAKSHMIPATHY ., NARENDRANATH Consulting Daphne vailable Martine Tobias Unavailable Majo, Kalie Primary Care Provider DO Majo Kalie Attending Provider DO Judith Patel Primary Care Provider UMU Tobias Attending Provider Majo, Kalie Primary Care Provider Majo, Kalie Attending Provider Stoney Turner Unavailable Majo, DO Kalie Primary Care Provider Majo, DO Kalie Attending Provider Shawn Webb Attending Provider EDWIN MORENO Attending Unavailable AMANDA JUDITH G Referring Unavailable GREGG PATELEE G Primary Care Unavailable Pastora John APRN, CNP Primary Care Velasquez mahmood PASTORA KOHLER Primary Care Unavailab LOPEZ Noe Referring Unavailable Jennifer Cabrera MD Primary Care Provider Pastora Kohler NP Unavailable Jose F ADMINISTRATIVE PROCESSOR, Pastora A Unavailable Lauren Torres PA-C Attending Provider Jose F ADMINISTRATIVE PROCESSOR-C, Pastora Primary Care Provider Judith Patel DO Primary Care Provider [phone] DAUDI, SAYEEMA N Attending Unavailable DAUDI, SAYEEMA [...] Care Unavailab Lauren Montiel PA-C Attending Provider [phone] Jose F ADMINISTRATIVE PROCESSOR-CPastora Primary Care Provider Lili Burgos APRN Attending Provider Lauren Torres Admitting Unavailable Lauren Torres Attending Unavailable Pastora Kohler Primary Care Unavailable Lili Burgos Admitting Unavailable Lili Burgos Attending Unavailable RICA RODRIGUEZ Attending Unavailable JENNIFER CABRERA Primary Care Unavailable RICA RODRIGUEZ Admitting Unavailable RICA RODRIGUEZ Attending Unavailable Salvador Galo Unavailable JENNIFER CABRERA Primary Care Unavailable RICA RODRIGUEZ Admitting Unavailable AKANKSHA SANFORD Attending Unavailable JUDITH PATEL Referring Unavailable AMANDA, JUDITH G Primary Care Unavailable AKANKSHA SANFORD Attending Unavailable JUDITH PATEL Referring Unavailable AMANDA, JUDITH G Primary Care Unavailable CANDI VYAS Attending Unavailable PASTORA KOHLER Primary Care Unavailab dusty RODRIGUEZ JR., RICA Nair Attending UnavailSEAN Wilde Attending Unavailable JR. ARIEL, RICA Nair Referring Unavaila moi OSORIO, ALEXANDRA Nunes Attending Unavailab dusty OSORIO, ALEXANDRA Nunes Referring Unavailab dusty RODRIGUEZ JR., RICA Nair Attending Unavaila BLANE Orosco Attending Unavailable WALLY, LAUREN Bloom Attending Unavailable KAMPCESIA, LALITHA Attending Unavailable JENNIFER CABRERA Attending Unavailable WALLY, LAUREN Bloom Attending Unavailable TORRES, LAUREN Bloom Attending Unavailable TORRES, LAUREN Bloom Attending Unavailable JOSE F, PASTORA Nunes Attending Unavailab le JOSE F, PASTORA Nunes Referring Unavailab le WALLY, LAUREN Bloom Attending Unavailable KAMPFER, LALITHA Attending Unavailable KAMPFER, LALITHA Attending Unavailable KAMPFER, LALITHA Attending Unavailable KAMPFER, LALITHA Referring Unavailable TORRES, LAUREN Bloom Attending Unavailable TORRES, LAUREN Bloom Referring Unavailable TORRES, LAUREN Bloom Referring Unavailable TORRES, LAUREN Bloom Attending Unavailable TORRES, LAUREN Bloom Attending Unavailable TORRES, LAUREN Bloom Referring Unavailable KOHLER, PASTORA Nunes Attending Unavailab le HADOLLY, ALEXANDRA Nunes Attending Unavailab le HADOLLY, ALEXANDRA Nunes Attending Unavailab le WALLY, LAUREN Bloom Attending Unavailable Medications Current Medications Medication Drug [...] as needed for left hip pain 28 7 January 03, 2021 October 30, 2022 9:55am amLODIPine 5 mg oral tablet (20 sources) Dihydropyridine Calcium Channel Karrie Start: 08-02-2024 take 1 tablet by mouth once daily amLODIPine (Norvasc) 5 MG tablet Indications: Primary hypertension Take 1 tablet (5 mg) by mouth Daily 90 tablet 1 08/02/2024 Active Start: 12-17-2020 End: 04-06-2023 take 1 tablet by mouth once daily Amlodipine 10 mg tablet Discontinued 10 MG PO Daily December 17, 2020 12:00am April 06, 2023 5:31pm Start: 08-04-2019 End: 06-03-2023 amLODIPine (NORVASC) 5 mg ta blet 08/04/2019 06/03/2023 Discontinued amoxicillin 875 mg / clavulanate 125 mg oral tablet (12 sources) Penicillin-class Antibacterial Start: 04-12-2024 End: 04-19-2024 [...] 7 days. 14 tablet 01/19/2024 01/26/2024 Active End: 09-23-2024 take 1 tablet by mouth in the morning amoxicillin-clavulanate (Augmentin) 875-125 MG tablet Take 1 tablet by mouth in the morning and 1 tablet before bedtime. 09/23/2024 Discontinued (Therapy completed) ARIPiprazole 15 mg oral tablet (20 sources) Atypical Antipsychotic Start: 01-28-2023 take 1 tablet by mouth once daily Aripiprazole 15 mg tablet Active 15 MG PO Daily April 06, 2023 1:00am Start: 01-28-2023 take 1 tablet by mickey th every twenty-four hours ARIPiprazole (ABILIFY) 15 MG tablet Take 1 tablet by mouth every 24 hours 0 01/28/2023 Active Start: 12-17-2020 End: 08-30-2024 take 1 tablet by mouth once daily Aripiprazole 10 mg t ablet Discontinued 10 MG PO Daily December 17, 2020 12:00am April 06, 2023 5:24pm atorvastatin 40 mg oral tablet (20 sources) HMG-CoA Reductase Inhibitor Start: 09-23-2024 take 1 tablet by mouth once daily atorvastatin (Lipitor) 40 MG tablet Indications: Mixed hyperlipidemia TAKE 1 TABLET BY MOUTH EVERY DAY 90 tablet 1 09/23/2024 Active Start: 08-04-2019 End: 2024 take 1 tablet by mouth once daily atorvastatin (Lipitor) 40 MG tablet Indications: Mixed hyperlipidemia TAKE 1 TABLET BY MOUTH EVERY DAY [...] Active Start: 12-17-2020 take 1 tablet by [facility] once daily Bupropion Hcl 300 mg tablet [...] 08-01-2022 Start: 08-01-2022 take 1 capsule by [facility] every week Start: 08-01-2022 take 1 capsule by [facility] every week Cholecalciferol 1.25 MG (46341 UT) 1 capsule Orally weekly for 56 days Then OtC 4000 u daily therafter Jul, Active take 2 tablets by [facility] every twenty-four hours Vitamin D3 50 MCG (2000 UT) 2 tablets Orally Once a day Not-Taking/PRN take 1 capsule by [facility] every week Cholecalciferol 100 MCG (4000 UT) 1 capsule Orally weekly for 56 days Then OtC 4000 u daily therafter Active take 1 capsule by [facility] every week Cholecalciferol 50 MCG (2000 UT) 1 capsule Orally weekly for 56 days Then OtC 4000 u daily therafter Active take 1 capsule by [facility] every week Cholecalciferol 1.25 MG (43092 UT) 1 capsule Orally weekly for 56 days Then OtC 4000 u daily therafter Active clotrimazole 10 mg/ml topica l cream (20 sources) Azole Antifungal Clotrimazole 1 % 1 application Externally Twice a day as needed Active Clotrimazole 1 % 1 application Externally Twice a day Active doxycycline hyclate 100 mg oral tablet (5 sources) Tetracycline-class Drug Start: 09-14-2024 End: 09-24-2024 take 1 tablet by mouth in the morning doxycycline (Vibra-Tabs) 100 MG tablet Indications: Left leg cellulitis Take 1 tablet (100 mg) by mouth in the morning and 1 tablet (100 mg) before bedtime. Do all this for 10 days. Take with a full glass of water and do not lie down for at least 30 minutes after. 20 tablet 09/14/2024 09/24/2024 Active 24 hr empagliflozin 12.5 mg / [...] 08-01-2022 ergocalciferol (Carlyn min D2) 1.25 MG (03917 UT) capsule 08/01/2022 Active Start: 08-01-2022 take 1 capsule by mo uth every week ergocalciferol (Vitamin D2) 1.25 MG (70093 UT) capsule TAKE 1 CAPSULE BY MOUTH [...] (Hyzaar) 50-12.5 MG tablet Indications: Primary hypertension Take 1 tablet by mouth Daily 90 tablet 1 06/16/2024 Active take 1 tablet by mickey th [...] Start: 04-22-2023 take 1 capsule by mo [facility] four times daily as needed hydrOXYzine pamoate [...] hyperglycemia, with long-term current use of insulin (HCC) Inject 48 Units under the skin at [...] mg oral tablet (1 source) Progestin Start: 06-26-19 End: 07-26-19 take 4 tablets by mouth twice daily megestrol (MEGACE) 40 MG tablet Indications: Endometrial cancer (HCC) Take 4 tablets by mouth 2 times daily 240 tablet 0 06/26/2023 07/26/2023 Active meloxicam 15 mg oral tablet (8 sources) Nonsteroidal Anti-inflammatory Drug Start: 08-31-19 take 1 tablet by mouth once daily meloxicam (Mobic) 15 MG tablet Indications: Left hip pain Take 1 tablet (15 mg) by mouth Daily 30 tablet 08/30/2024 Active metFORMIN hydrochloride 1000 mg oral tablet (20 sources) Biguanide Start: 12-21-19 take 1 tablet by mouth twice daily [...] (Lopressor) 25 MG tablet Indications: Primary hypertension Take 1 tablet (25 mg) by mouth [...] 2023 11:50am take 1 capsule by mo [facility] every twenty-four hours Nortriptyline HCl 75 MG 1 capsule Orally Once a day Active nystatin 100 unt/mg topical powder (20 sources) Polyene Antifungal Start: 05-03-2024 Klayesta 10 0000 UNIT/GM powder APPLY EXTERNALLY TO AFFECTED SKIN AREAS TWICE DAILY NEEDED 05/03/2024 Active Start: 06-15-2023 nystatin (MYCO STATIN) 166109 UNIT/GM powder Indications: Kelsea albicans infection Apply [...] April 28, 2024 11:25am *PT TO USE [employer] PATIENT ASSISTANCE VOUCHER FOR 1 MONTH SUPPLY Start: 03-30-2024 End: 04-28-2024 inject 2 mg by subcutaneous injection every week Semaglutide (Ozempic) 2 mg/dose (8 mg/3 mL) pen injector Discontinued 2 MG SUBCUT every week 3 March 30, 2024 11:03am April 28, 2024 11:27am [employer] PATIENT ASSISTANCE Start: 05-11-2023 End: 03-30-2024 inject [...] muscle spasms. Active topiramate 100 mg oral tablet (1 source) topiramate (TOPA MAX) 100 MG tablet 1 tablet 0 Active traMADol hydrochloride 50 mg oral tablet (5 sources) Opioid Agonist Start: 09-08-2024 traMADol (Ultram) 50 MG tablet 50 mg 09/08/2024 Active Completed/Discontinued Medications Medication Drug Class(es) Dates [...] tablet by mickey th every six hours Elberta Active take 1 tablet by mickey th twice daily as needed Elberta 5-325 MG 1 tablet as needed Orally bid Active [id number] 200 actuat albuterol 0.09 mg/actuat metered dose [...] completed) ALPRAZOLAM ORAL Take by mouth. Active baclofen 10 mg oral tablet (20 sources) [...] corpus uteri ] Onset: 06-03-2023 06-12-2023 Chronic Cancer of uterus (2 sources) H/O: malignant neoplasm; Translations: [Personal history of malignant neoplasm of other parts of uterus] 08-30-2024 Episodic Chronic kidney disease (20 sources) Chronic kidney [...] REPLACEMENT SURGERY] Onset: 09-25-2016 Chronic Other aftercare (15 sources) senior living (current) use of insulin; Translations: [Long-term (current) use of insulin] Onset: 11-21-2020 Resolved: 10-28-2021 Episodic Other aftercare (5 sources) 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 status; Translations: [senior living (current) use of insulin] 05-11-2023 Episodic Other [...] specified as traumatic] Onset: 06-16-2024 Episodic Other connective tissue disease (2 sources) Pain in lower limb Onset: 09-07-2024 Episodic Other inflammatory condition of skin (20 [...] Onset: 03-10-2024 Chronic Other non-traumatic joint disorders (3 sources) Pain in right knee; Translations: [Pain in joint, lower leg] Onset: 09-20-2016 08-02-2024 Episodic Other non-traumatic joint disorders (1 source) Pain in right hip; Translations: [PAIN IN RIGHT HIP] Onset: 06-26-2022 Episodic Other non-traumatic joint disorders (4 sources) Pain in left knee; Translations: [Pain in joint, lower leg] 11-19-2023 Episodic Other non-traumatic joint disorders (10 sources) Pain in right shoulder; Translations: [Pain [...] due to excess calories] 02-29-2024 Chronic Other nutritional; endocrine; and metabolic disorders (2 sources) Morbid obesity; Translations: [Morbid (severe) obesity due to excess calories] 08-30-2024 Chronic Other skin disorders (2 sources) Eruption; [...] Asymptomatic menopausal state Episodic Residual codes; unclassified (8 sources) History of arthroscopic procedure on shoulder; [...] syndrome, not elsewhere classified] Onset: 02-23-2008 Chronic Spondylosis; intervertebral disc disorders; other back problems (20 sources) Muscle spasm of back; Translations: [Radiculopathy, lumbar region] Onset: 01-18-2014 Episodic Substance-related disorders (2 sources) Opioid dependence; Translations: [Opioid dependence, uncomplicated] 03-05-2024 Chronic Unclassified (12 sources) Body mass index (BMI) 50-59.9 , adult; Translations: [BODY MASS INDEX (BMI) 50-59.9 , ADULT] Onset: 09-08-2016 Resolved: 11-21-2020 Chronic Unclassified (1 source) senior living (current) use of oral hypoglycemic drugs; Translations: [RETIREMENT (CURRENT) USE OF ORAL HYPOGLYCEMIC DRUGS] Onset: [...] A PROCEDURE, INITIAL ENCOUNTER] Onset: 09-20-2016 Episodic Mood disorders (8 sources) Mood disorders Onset: 08-30-2024 08-30-2024 Other aftercare (20 sources) Long-term current use of insulin; Translations: [ocean transportation intermediary (current) use of insulin] Onset: 04-12-2024 05-11-2023 Episodic Other connective tissue disease (1 [...] 11-03-2022 06-12-2023 Episodic Other non-traumatic joint disorders (20 sources) [...] right lower limb] Onset: 09-20-2016 06-12-2023 Episodic Unclassified (1 source) LOW BACK PAIN, UNSPECIFIED; Translations: [LOW BACK PAIN, UNSPECIFIED] Onset: 08-01-2021 Unclassified (1 source) Low back pain, unspecified M54.50 Results Test Name Value Interpretation Reference Range Facility XR LUMBAR SPINE 4+ VIEWS WIT H FLEXION EXTENSIONon 09-23-2024 XR LUMBAR SPINE 4+ VIEWS WITH FLEXION EXTENSION Lumbar spine, 7 views. HISTORY: Low back pain radiating into left lower extremity. Surgery 7 years ago. FINDINGS: Bilateral posteriorly placed pedicle screws, L1-S1, secured to bilateral vertical rods, and 2 horizontal brackets. L5-S1 intervertebral disc space device identified. No acute fracture, dislocation, or bone lesion visualized. 6 mm anterolisthesis, L5 on S1 visualized on neutral, flexion, and extension positioning. Diffuse disc space narrowing L5-S1. IMPRESSION: No acute fracture. Internal fixation L1-S1 as discussed. Grade 1 L5 spondylolisthesis. ELECTRONICALLY SIGNED BY: Pj Dang MD Normal Not Available CBC WITH AUTO DIFFERENTIALon 09-07-2024 BASOPHILS ABSOLUTE COUNT (10*3/UL) BY AUTOMATED COUNT 0.0 10*3/uL Normal 0.0-0.2 [facility] Comment on above: Performed By: #### C BCA #### [facility] ([address] [address] VIR BASOPHILS RELATIVE PERCENT BY AUTOMATED COUNT 0.5 % Normal [facility] Comment on above: Performed By: #### C BCA #### [facility] ([address] [address] VIR CELLAVISION DIFFERENTIAL TYPE AUTOMATED DIFFERENTIAL Normal [facility] Comment on above: Performed By: #### C BCA #### [facility] ([address] [address] VIR Eosinophils (Bld) [#/Vol] 0.2 10*3/uL Normal 0.0-0.4 [facility] Comment on above: Performed By: #### C BCA #### [facility] ([address] [address] VIR EOSINOPHILS RELATIVE PERCENT BY AUTOMATED COUNT 2.2 % Normal [facility] Comment on above: Performed By: #### C BCA #### [facility] ([address] [address] VIR Erythrocyte distribution width (RBC) [Ratio] 17.0 % High 11.5-15 [facility] Comment on above: Performed By: #### C BCA #### [facility] ([address] [address] VIR Hematocrit (Bld) [Volume fraction] 34.2 % Low 35-47 [facility] Comment on above: Performed By: #### C BCA #### [facility] ([address] [address] VIR Hemoglobin (Bld) [Mass/Vol] 11.3 g/dL Low 11.7-15.5 [facility] Comment on above: Performed By: #### C BCA #### [facility] ([address] [address] VIR LYMPHOCYTES ABSOLUTE COUNT (10*3/UL) BY AUTOMATED COUNT 1.9 10*3/uL Normal 1.0-3.5 [facility] Comment on above: Performed By: #### C BCA #### [facility] ([address] [address] VIR LYMPHOCYTES RELATIVE PERCENT BY AUTOMATED COUNT 19.6 % Normal [facility] Comment on above: Performed By: #### C BCA #### [facility] ([address] [address] VIR MCH (RBC) [Entitic mass] 27.2 pg Normal 27-34 [facility] Comment on above: Performed By: #### C BCA #### [facility] ([address] [place] [address] VIR MCHC (RBC) [Mass/Vol] 33.0 g/dL Normal 32-36 [facility] Comment on above: Performed By: #### C BCA #### [facility] ([address] [address] VIR MCV (RBC) [Entitic vol] 83 fL Normal 80-100 [facility] Comment on above: Performed By: #### C BCA #### [facility] ([address] [address] VIR MONOCYTES ABSOLUTE COUNT (10*3/UL) BY AUTOMATED COUNT 0.6 10*3/uL Normal 0.0-0.9 [facility] Comment on above: Performed By: #### C BCA #### [facility] ([address] [address] VIR MONOCYTES RELATIVE PERCENT BY AUTOMATED COUNT 6.7 % Normal [facility] Comment on above: Performed By: #### C BCA #### [facility] ([address] [place] [address] VIR NEUTROPHILS ABSOLUTE COUNT BY AUTOMATED COUNT 6.8 10*3/uL High 1.5-6.6 [facility] Comment on above: Performed By: #### C BCA #### [facility] ([address] [address] VIR NEUTROPHILS RELATIVE PERCENT BY AUTOMATED COUNT 71.0 % Normal [facility] Comment on above: Performed By: #### C BCA #### [facility] ([address] [place] [address] VIR Platelet mean volume (Bld) [Entitic vol] 7.4 fL Normal 7-12 [facility] Comment on above: Performed By: #### C BCA #### [facility] ([address] [place] [address] VIR Platelets (Bld) [#/Vol] 294 10*3/uL Normal 150-450 [facility] Comment on above: Performed By: #### C BCA #### [facility] ([address] [place] [address] VIR RBC COUNT 4.14 X10E12/L Normal 3.8-5.2 [facility] Comment on above: Performed By: #### C BCA #### [facility] ([address] [place] [address] VIR WBC (Bld) [#/Vol] 9.6 10*3/uL Normal 4-11 [facility] Comment on above: Performed By: #### C BCA #### [facility] ([address] [place] [address] VIR COMPREHENSIVE METABOLIC PANE Gonzalo 09-07-2024 Albumin [Mass/Vol] 3.6 g/dL Normal 3.2-5.3 [facility] Comment on above: Performed By: #### C MP #### [facility] ([address] [place] [address] VIR ALP [Catalytic activity/Vol] 104 U/L Normal 39-130 [facility] Comment on above: Performed By: #### C MP #### [facility] ([address] [place] [address] VIR ALT [Catalytic activity/Vol] 33 U/L High <=31 [facility] Comment on above: Performed By: #### C MP #### [facility] ([address] [place] [address] VIR Anion gap [Moles/Vol] 9 mmol/L Normal 5-15 [facility] Comment on above: Performed By: #### C MP #### [facility] ([place] [address] [place] [address] VIR AST [Catalytic activity/Vol] 24 U/L Normal <=41 [facility] Comment on above: Performed By: #### C MP #### [facility] ([place] [address] [place] [address] VIR Bilirubin [Mass/Vol] 0.5 mg/dL Normal 0.3-1.2 [facility] Comment on above: Performed By: #### C MP #### [facility] ([address] [place] [address] VIR Calcium [Mass/Vol] 9.3 mg/dL Normal 8.5-10.5 [facility] Comment on above: Performed By: #### C MP #### [facility] ([address] [place] [address] VIR Chloride [Moles/Vol] 99 mmol/L Normal 98-109 [facility] Comment on above: Performed By: #### C MP #### [facility] ([address] [place] [address] VIR CO2 [Moles/Vol] 29 mmol/L Normal 22-32 [facility] Comment on above: Performed By: #### C MP #### [facility] ([place] [address] [place] [address] VIR Creatinine [Mass/Vol] 0.74 mg/dL Normal 0.40-1.00 [facility] Comment on above: Result Comment: METH OD TRACEABLE TO IDMS STANDARD Performed By: #### C MP #### [facility] ([place] [address] [place] [address] VIR GFR/1.73 sq M.predicted among non-blacks MDRD (S/P/Bld) [Vol rate/Area] 90 mL/min/{1.73_m2} Normal >=60 [facility] Comment on above: Result Comment: eGFR not reported due to non-numeric value for Creatinine. Reported eGFR is based on the CKD-EPI 2020 equation that does not use a race coefficient. Performed By: #### C MP #### [facility] ([address] [place] [address] VIR Glucose [Mass/Vol] 145 mg/dL High 65-99 [facility] Comment on above: Performed By: #### C MP #### [facility] ([address] [place] [address] VIR Potassium [Moles/Vol] 4.7 mmol/L Normal 3.5-5.0 [facility] Comment on above: Performed By: #### C MP #### [facility] ([address] [place] [address] VIR Protein [Mass/Vol] 7.6 g/dL Normal 6.0-8.0 [facility] Comment on above: Performed By: #### C MP #### [facility] ([address] [place] [address] VIR Sodium [Moles/Vol] 137 mmol/L Normal 134-146 [facility] Comment on above: Performed By: #### C MP #### [facility] ([address] [place] [address] VIR Urea nitrogen [Mass/Vol] 20 mg/dL Normal 5-27 [facility] Comment on above: Performed By: #### C MP #### [facility] ([address] [place] [address] VIR LACTATE W/ REFLEXon 09-08-19 25 LACTATE W/REFLEX 1.3 mmol/L Normal 0.4-2.0 [facility] Comment on above: Order Comment: Resul t did not trigger repeat Lactate, re-order if needed. Performed By: #### L ACTS #### [facility] ([facility]) [address] [place] [address] VIR XR KNEE 4+ VIEWS RIGHTon XR KNEE 4+ VIEWS RIGHT XR KNEE 4+ VIEWS RIGHT Reason for exam: Right knee pain, post fall Views: 4 Findings: A total knee arthroplasty shows normal alignment. There is no evidence of fracture and no abnormal lucency around the hardware. No bone lesions are identified. IMPRESSION: Unremarkable postop appearance. Dictated on: 08/02/2024 5:08 PM This report has been electronically signed and approved by the interpreting Radiologist. Normal Not Available XR SHOULDER 2+ VIEWS RIGHTon 08-02-2024 XR SHOULDER 2+ VIEWS RIGHT XR SHOULDER 2+ VIEWS RIGHT Reason for exam: Right shoulder pain, post fall Views: 4 Findings: The alignment is normal. No fracture, dislocation or other acute pathology is demonstrated. There is degenerative spurring at the AC joint margins. There is calcification of the distal supraspinatus tendon. Impression: 1. AC joint arthrosis. 2. Calcific supraspinatus tendinitis. Dictated on: 08/02/2024 5:09 PM This report has been electronically signed and approved by the interpreting Radiologist. Normal Not Available Coding Summaryon 06-22-2024 Coding Summary HTMLBase 64 LqdqcuacVOy4vPc+PGhlYWQ+P M7QCSHmY36mhWSulD0kA4EDTY lOSywgQVBQTElOSyIgbmFtZT1 kaXNjZXJu IC8+LZ8tVZZxEacukVAnj8B5v XU8R43ept1sSVgnwVE5GQLrOt Efycaon1csqUr0GJqhLhavNhT t BDIojG08WMC8qG39Xw49bLGvs YYsv4pkoFs1AsFgKVIpGWC7nX xuNTbdg0JoMUTaU11xaIKxx3S 6 ZOWqmQgyvDZtFfZvjCM7dT2sQ Aeebzcow0skxrjmQti5nt05yA Dbs2B2vXN8L9QebkR6LWHseGQ g HdwalXVRyX8jfzfwo0srxkuhK cOdZIJsSTw0RWg4PFNyxOuoQm ZrGG19XHY1CJZlgbZeH0MkOGV s tNhvBnL1h3T4Eu5ER5CLScxoN 1VNTUFSWTwvdGQ+DL77xb59A0 WsDmwqEkp7GMNlXMC3uKE5qO6 n NTQoJVroc0Y8aPQ1C4GvmqBom b7yy7moGMTdXZcdA59xuPVbn5 Y4AURkmNR8PCErmZooHqSniS4 3 Oyc+TPGmvXnlr5JtGcmhd3rem 4xnxPk8VudrQALkbbSssYdeMD N5b1QnHm5fOYFetLY9eZJ4dT1 i PsLdTjE5WKzuE168LbZpzZWiM fyjM04aT7HphZJ+IHFxNtu1VR GheZbwGX8kO9VtXZCclllehJP m aVocLM3pLAOosalyZBGnnD2dR KNiY3v6IiMmFqI5ZXjfC5ZoEJ KxwqjnXu48yL4xWtTbEnB3KAl u W4ZpuaE4WPGeiJGuXEtbICM7A 51yj0Q8WEMkIJJlCEF9zYU7oI 1hbGlnbjogbGVmdDsgdmVydGl j BIlnIQmtP297ONEwuFxhGiGpD GluZyBEYXRlOiAgMDUvMDcvMj AyNTwvdGQ+JCVjGLA0zKvkSXR n xMLzRUszNa5hoNzsvHfyVL0xB VDddcmfSPGrbN6nFCZkrEPglU paTX8dRKUheaolr715EvFhWRU 0 ZUTvxGFrI1SdjC2lGoCjAHBxZ WNrB8PseFBnROgdB171OVbgAx Z6FUBtjtPsE9TbLQFsbCckDlO 0 d1X9Tq1Ou9CcusqrO2WhfVGeB mHbVmfsYCl1A0QgOnadlXX+PC 18BJDnCV99JYk5JLG8kHgcGFu i NFZoO3PixQ5yHoUzXDWtMEOyA yc+PHRhYmxlIHdpZHRoPScxMD YaTpPomWdkNR8jMo3gUBToQVN v mKezdDFoAcGbf6avLOXdLEmrR Y5fkCutQ2XddAJ4FHQuf9q4Nk 95Z86eB0SjpVM+EELeyXL3kKN 0 pA0qDyQzXvF2FItaN432HxJil WArRsgyp5sue4fjwQh2NiL4GQ DuvtUdhPjpUFL8w0ZtAa91P61 s IHdpZHRoPSIxNSUiIHZhbGlnb n9pxQ3vUf7+NRNmzFY3fYI5wN 5iQgOyYzZ7UFleX186IsBxaYL v Bnddp9run9ckpWk2UpBmKCCul uWrdJbxMMY6q1QtIw72M6YlzJ mlu9WtEps0sy12dPCes1Z8sNR 9 R1VyVQKnvxvklVPteGocDK7eV AYstntoIVZltJ3rTXDwN6n0Xm NsBtH3XXtxX6EbrfE3IFMfcUJ g FNMfcTKAnM1hrbyas6xmtcskQ dYeNIOwZCh2NKo9YXJenKsiMq SbNWZ3HwR5BEC0rHPnqF7pbXl n tovdoY6oDkg+UWS0qNWbpLDOU R2kKykqeBQ+GSVxXMO9kFltQG jbIAQfnU7bREWwU5v8FhEvVoZ 1 NMbgD9PpauR0CIMcvYYaOMDma MJUnF0paxluc2xorgxrEpCiYF HuIXe7RFu8ZXUhtBazYySgGGT 0 VyT3XLH6mFAbdA0ssMiuijxuv G9wOyc+OzimzAecQUD9PLj4R2 KaRph8HTFzbVwnKM5xtDGoARg u Sy0goWnetEzeLO8qVYWswhzdz 333ApEme2pjSREeyXLcNSbaRY I2P42gc7U9YGKaZXReCPY7nSF 4 oC9bcNdnufvkkGElhCgjhlHjn BqnQTgyCYfoB324ORRhxIwbDc DcUXk1F6PoBko3CTZsmRcpEM3 n lUCfNElmIu9mwItyzApuUC6nR CKrpdxzf385IcUun1cqGGYnmI BrJZqwNLF5H56wh7W7UWAsAMD w XHN7zTU0cH9brNcwgatwxDHbm RmwfzDnaDfpALvyWHziM449ZQ LglNgpTsTlrSu5G0KmMjr0ETE z rYyqHN4zuPQiBTleFs8uuOzrh LdlTZ8kDWYwdqplh971SaEir6 ljVHQpkSUpRAjcZRP7C30cn0I 6 SQUvRJJkKNQ8nLU2rN5jzDgdw jogbGVmdDsgdmVydGljYWwtYW akC720QGVadAplRuKilFybbaM g VYlsWTw3H0WuZunhuTV+PC90Y AGjBP95sLPdbGJlm7wnmDl2Rp ZyYZYcMON9eBpuUSrrx9MpTDS t C40pzQUdm3E7OQLvzXghhYDoG qOmeQS3pS6tEBiqkdsgv9outc paJsglu2xfkm75uD45C30mKUg p IFAwVFVrCQNnEKLxvXzcqt0hn G9wIi8+AHRwmKZ7hED5tN4tTR EhWlM9BKxaN780HzXgyURiXqe j k3ltn6xegOu2TvA1GIWtupAvv CehPDG4n0RuEg08T64zQTwmXT OuCQEhGVSiAAVsjSerfn4ofM0 w Ii8+CSTzcSH1oUH2nK8hVoXaP pY9LWsjY407EgMfdROnYhjjE7 4yW4CaxJI+FWYhYvu9GYKayFs s RM2mkKWdFJndJp6zZFQ4IuUbX mLrCHqaR1PxGSEsneshgchgxB F2ZUZtKKAipL38Sy9kpXhzBHV w gALOtW6syuywf5yehqfdHtJnZ NWqDJf6MJm3MDBpbSdiHeYzZE X3PvQ5GQM5cVArjE6ysXaddpd g jC0jJ3QnHENeekbeZu66dV9hA aAfVmK1IHtsDps+AG3IRDCZWV IEMIHFKXJTJHKPGB4BOT50Z7B k Zaq5CEDkmDzrYX8gtZOhESipN i9mrQyakLzbOO7qZBXupxwbGU UadY5fTIAifSRabWaoPS7tZJH p nyqhd527TtTbLDT5EKLieSMhO 7VolT1tWnHvLAMaKAAhG6StaJ KiZDkqE274HDdqWoB3KKRonvD p X4ArIQAhfQwvYtV3o8S0Mk7dA I6qFX2bTCCfEQ20TW15jVAut5 K4hLA8T7XrOJCwfpqqbnyeeRM 6 NRTcINDcpP46hLQeLNzxEs1zu 5K8p853KNVcHPLdkG87Hz6hhQ usQYDckDJBlV8stxdqo6gfibs g AoNsMQBoQXk2CBf4GYJypZtyK mDaZFN3QhK0MGI5tWEubE3haL yilwwdfN0gBcl+NjQgWWVhcnM 8 U4ZrUvw5PBCbuDpuXB9cgRMlW DbtXb8hhRmnnLomFM2zTSQvbk cqGBHvwF6tKCOuvJWsxJnhGP7 w AFBhceagw599JuFoWUK2XYTzs JOrD0TbfM8oJrMiUJNjRTHqY3 NvzPYzNJhqR417DTjxSoH3GPX l txKgA4BuIITleKxlRcM5n0K1M r5FSQ5EAGN8J2XlUkd7ATJgzU uqYA5pzKOrNZxiYs7suDgdjEa g LR3pWSUihwuiEMQahM3vPRNat IAhhLauKG5sYGJhxstug770Fx TlRFR1ABUfjIHrV9WjgB3pPoH j YJHaJKJyH4FevZShULbaO122L DbxXlX8EVEtvxTnG7HmECBxnB jaAnE7g7K1Uu1OXLcbS5ClS2X y eTwvdGQ+YX74pd77J7MiHpteI sx3XSNiFNF5zWK0vY7tFKZlHR ssq9J5pLX5I0MpmdKlzp5lz1u s DXJuHCpnC74giSEwe4N3UWRif IG7VPUsfFygSeBydL38Xsy+PG DlpSzui4GfMmvch3hjz6eflXy 9 QdJwTGFzyqXokCtbXJT7v3QxO s57Q51nQYkwRYRaOJWjCELmYP DmrOgnpe2zbG5uZc2+PGNvbCB 3 zYK7zB6lObUnMrA5YEkjG770O aCtcKAkTcozw2cta6qiwCm5Ht SdVSLdkuKguVjcSSK2p7QyTr7 8 S5FgbQutb2UlRme3go64iOFce 1U9uVP9C9NbHJMdrthbhNDezM uoKV6hXXGapworKKGdlF0tSKA p B6r7LkSgUbJ8XIqfV4BmusO4S QVceEJwHXZdzKHTpU4ermwjv8 xuztcyBoQuVKSeVEw1VEw1HQF s vHwuGcVqGMB7UkI6NQM0tJSil Y0miCmntxdoiN6sMba+UGh5c2 msyGBnKW1hrQX1SV68AT95qSK g x3Z0eOI6P8JpDDYqlypphxwsl FL7DFNlNNOljO67Jd9lhVejNr 6tAZYsZNM9BPJsyQDpG2HgaY0 y ZqOfLVVkJYTzG3JmrIKoOQupQ 207KUfpNlE8ZNBoovMiS3UqAZ GhwFyxZhG7i9E1Hg3KEK24XR7 0 ZB20lEOvs0N5qIP1S2RkSYXkr uffcaoqzNV8GPJwOEWprC74Om 5xwKtiYz6lHBOtDHG1JTXlxKA z Z0WfmJ6gEmPdJWCeTCFcG3Jjw DFdYTpwG219EHtqEpB9EHAzms StS8SdGXPzcDwvEfT1d0Y9Aj6 N Ll46AH01OM33dIKgi7U5dVF5K 2AfKCZhazasjoizsEB6WMSvNQ HqeC95Bl1ugXofTy0sAUQmZNV 0 QWDclLIcW4UsrF0fEvLnLJByQ CZtE4YrqCKnKRmjP617HKyuBt P6AGZaqjHuD9JsAIRmvStlWvR 0 f7Q4Cs1NSGlxtza7V9AnFwijd HI+XP80TGFxGB22wVIubNVrd5 wgeWn9MaArPQSsHQP2qEtsZGx i b3J (more content not included)... [facility] Coding Summary HTMLBase 64 VdccesmqXNn0aRu+PGhlYWQ+P Z0LTFHxY85qjPHixM7vP2CUZV lOSywgQVBQTElOSyIgbmFtZT1 kaXNjZXJu IC8+CP1oGFTgYrhpcCRnc5Q4n LD6W74noh8sCRiitGJ2WMRnFo Iawxhih0ccrIj7FGqaHwyjGuP t CCZvkN83QQQ6cN31Jq12rKLzx JMnn0wxnSn9GfLqQUChRUU4zP tdQIfuz5WqHQPwU55jiRAqm5L 6 XHGuzIljmCBvAxZqxDD8yC5uM Tbkzqvyj0gsvdjmZns5sz64vV Iaq5H4pUF8Q6LdowU9PZTqfFZ g LvrriLMUnQ2iryifl0pbfergZ wSbZVHpFJq1ACa2URCnuMjnQc TwRO97TDL6MXVzowFaB7BrDOV s qDgbBfE0x1X5Eb1LU8MLPmxhS 1VNTUFSWTwvdGQ+WB22pd73C0 RkCoxlLiz9JYPeMUK4vTG1oJ0 n YNDgMFwty3C5vYR7S6PzmvAxo v0nh4lxTMZoCRjkX05atUWfk8 Z0XQMjeHP7FSZcpHasNxJjkR6 3 Oyc+MWGgoIenu1ZrSkiyy5qap 5hhzGn7UglsKDRqvuPeuBepNG P5z1ScCy1iIMSkbEP5tIE1hJ1 i NsAmAhE4PQebO809UbIuvSCqF yzaP15pY4UtlUR+UMGzKfe2FN SnpEidPB1cP2HwGSXqobawyQP m rHiiXX9aTNCvqrfjXBXczW2oL FYbA5t6WuNpDlM1TQwqH1DxKS PfkjiqYa87nW7rPoExQjW3YWh u D9CkwqL5CEMqiUMiDGtqOCA3M 84om9L0UDFmUPTvAVV3nAN6hW 1hbGlnbjogbGVmdDsgdmVydGl j RIdbRDquN065GQVnmKpwFzSrQ GluZyBEYXRlOiAgMDUvMDcvMj AyNTwvdGQ+HBFmVMA9rMkpHWY n gWMkYQigHi6yxAxnkEtcJG1xY UGkhihwAGGhsM1xCCSncQOayL pfWV3bEQOgczwzz661TmSkYTJ 0 LEPlgSGeR1MnjF1lAlRwRVUcG LFlH6LteOPsZFazT930IIcgXk Z9MFMvbzJfP8QtQLZrnFxfNqL 0 h3Q1Pe4Gv5JygzrqA4UrzNLoU jGjRpfsAJm0J3YeXvlokDJ+PC 44YPIiEQ76XUd4XCE5rXyeNGe i WYSzT2MgkV6bUmDrRYRuFDUmS yc+PHRhYmxlIHdpZHRoPScxMD NhHrLtqBatWC6hQe6uCJSkEYC v fKadfGOhPnHok0xtXHIwKCmpZ B5dlRudM7DfaFV8DVVxg1q3Mg 45Z08iU3OlkMI+XSKevKZ6sMW 0 tZ9ySgGeUcX5LJdpC902IyKdy TLkBdnhk7buu8caxAp9SsV3XL XkcyBhiXktACF1q3OuAo82B97 s IHdpZHRoPSIxNSUiIHZhbGlnb u9kcR3oMe4+XMYvbSW1cKI8eA 8oPdImKsM2XOvjF741GaElmUM v Ehnqo0jre3bffUp9YaHgUXBkl mSecVviKPG1v9CiGw62F9SrhI qdl4ZmKqg4ii81wSWwl7M2bON 9 I0YtZYXaospudGTrvWwhRP3tA QPuzwydYKVbzG8mVHVgF3q8Gw ZjCuG9PLggF0AzoxZ8RYQnaRR g HXOonYCQmE8rnyhyd8ddvfltL gNvVYEwXSa0GXi6FMZwfLyqBz OeSDO8QcX6VST3vBCfyV5vaXo n ycyigY2bPdp+GTT8iFHtpTGJD O4yVorttTI+MYBvAGH9iHgxMT ycHYSqmR2sIZCwR4b7PyQpHsJ 1 KZrgS7EogxC4KCCguAEqIXVxx CXXlT0uxuzfc5yiqrheRhHiJU CkIKe1FGu9MKNowZauRpIvGPA 0 AdT3IGV6lHQqzC3ihXnbkdgxl G9wOyc+GovpuIfkHWF2YYf4A3 SfGhx3VGNgfAzfBZ8ugQHhIEv u Su9uiZbuzLljBU4tAVYhmkbgs 495RrIcx3onJVGfdCAnEXinYF F2U39bk3W0HFSzRCNgDAI1cVA 4 vE5sgAjxvchgeVVztCcjvgKry KhpCVvqDCjmE785ZNMiaFanMn GvUGo2O8MbVgh7ILPbjMwpNQ2 n kSXkPAaxVi6rrQphgJsdNK6uX TVpriwdg701PhLad5cyAEDgbJ AmGMhyQFW6O90bi0X6EGMlGRQ w SAQ9rJJ3qR5mwPwtcgekhURlx GhrfpNqcOvrTWwhPYmhR870WD TsgRlxGoRckQi7F6DqZom6ONE z tJlzJV4ayJAyAQntLj3lnXcdq BxjKQ2aQBWqhtnhr846CkGsn4 xpFXAzfSTvSGohNZA0E56du5M 6 KYTdSWUmUEV9kAW0aF6khLucg jogbGVmdDsgdmVydGljYWwtYW bcZ253HHJrtOleWmBgfRzuprT g PYtnMQi0T5BpLbjdxZX+PC90Y PRjRY27eSWdrAZxp3drzRf3Kx QhXMPwCKQ3mBtfVWzsk6HxMHG t A48xqXAjr6C1BNWqyKjprLKdE yExkMK5dX9xTNhsozmji6qrua edYogss1eday15pL68L75uLNj p CFHfIOZgMUQbJLMywAiiio8yl G9wIi8+XNEndOP0oKZ0nB4eUA NvXvY2XJikN001IvLmgUYdXgl j c0ouw5jakVu8BiA3LDYpxfUhb AemZNX9q2HsWi05P29dGLyeYD MwNNLyVAMpDCHxfPbxfz1ckJ3 w Ii8+DSVhyCQ4cAI4pI1zPfCiD kB0CZyuP126DuPawFDvUxxnQ3 6wF6RknZZ+FFVwMct2FILllCz s MK8xkJJhBCevYb1kTPS1LuRvM hGiWEnjO2HaLJRqdtixzcmayS X5RGEgYPMoiN66Yo4scOwwLJG w kTTIpN4umywry2mpovbdOwIxH KChBCd4YCe2UIYpgQmqUkJpTB W1NqD7BRS0rCZoqF0thRqhefl g vY8vY9TgSHTwlqllAv32qK8eA vUeCeJ9CNgmZxt+MC6IKGDRHG FMBAMVVTSQIXEXPY2BCG46D0N k Gvm6LQNztJjzYI5seMFiBUdsL f6mzRnctOcqMU6hPLEylelbRQ HflL3rXIFrrHNfuVtqJO3xEIT p vylak553TgPnGMD6RLMjyMOsT 7MnwN5bRqJeVFAzBYGkH9SrjM YcIWrgK511NXoyOjZ2YVPhcgS p E5YuSKCizYahCtP4q8X0Ta5eF Y8kJC0hXJGqFO79GT86eKRjy7 J7uCP4K1TkKHVxuoflccdecZZ 6 VOZsOIFkxA53pDSxYIpvQm1ij 6W7q396SJKqTTClzO30Ms5huU ycNJKynKTScR4gwtqxy9cbayo g VwFiPJAvJNp6TAd6BFXxrPktD vUzOQW1RyU3QFT7pTYdjA3fkW zudtexjH7zPfe+NjQgWWVhcnM 8 G9JfWmh8DOSvpLwxZN8trLHwT RsmHt6hkTenaQshOM9iQXWiwr bnSCMxdP7wZRFzbNEgaExlBC3 w MAQwtekvx241NeMiEMM0PEEbt BSaI0JqpN2iLkSoTAZuHGHiX7 CemGKuPRytQ084TGqbDiZ0CGX l feNzB8AyNIAlmEnoQkU7k3I1A a7IOX0XUAN3X7PqVzu8DBVbmH ppBY4byDVdWEayPb6mcVbxvXu g FU9mYUZhnbunEUFisQ5kBOWil IHewMuvMN2qMFLeoxaub578Fb VgXXN4NZUdnIYoL8QedX8gYiF j DKRkZRXpU4VexBYiCYfeW229K KbkPwL9UXAldrCgJ1WiXJQjaL woFzR4c0M0Ak2OMJnzP8MdZ2Q y eTwvdGQ+AM84on58J2OkAlqjG nb7NMTdGAG4pOU6dW2bZVMiRW oar1U5iKP5W0AgwrVawv5ev5z s IOBiBYyxF01biYXwz2W7XSJmm MM7WIGirSqqYdWwoQ87Jqp+PG RskUygf7EjXwaly0omi5upqJr 9 EmCxEVIqogGtdCtfHCC5r7AkY u74K86nTRuuASLiHLSyQSQeIM TszYwhhx8dlO8kMy4+PGNvbCB 3 sCA4vL6aSvKdJuB4PGhnR512V oItkUZmTscgp8crt6macQm6Zq BsPCQarsIawKhrLBI3j6RyXu7 8 E1HxvFkje9XzXks4rp88jMBav 1C4tCC3V3ZtEUEjzdluiKFhgS ksJY9dMSGcuezdGCNizU7eVKF p H0i7JfXnIwC5DPntP4AcvtB0Z LRpeCGhXRReeVVFkK6mlkaws2 jdbifiFwAtIAXiZWi7FWk9CRA s sLfvZrHgFEG9NqJ0XWL7pELxr J2puQnxkjhhpG1oImn+UGh5c2 fahUFwXP7zgOK5CA15OG91gPH g i2X4oNZ2W0RwLZTdywfkjjewr OZ4MWZyEKZzfY89Bq9iyQzdYb 9pCQYjTCB5FROayYLrE8XkzR1 y XiVkCKJwVRTsT8VdoITlNOawC 691VFpnYvP3IPYixsLwY4FaGZ YvsZfpEmZ2s0K1Sx1SNB53AD0 0 FX19wONfj0L3vWN5X6AzTZVas vznrnvsgSG9YRTmNVUiuE02Ke 8ezZbuQl7rNFUtAKL3JSSziOI z C1XnwP7xFyGjGTMvQJUqM3Vcf EFhFMjrX829WSccWyZ9BCCtzm KmJ6DzKJNglSxoYgY1t1X3Zi3 N Xx24EU78XF30fUUsd6W0cIP2S 1VsHNIvgzsactrezZW9LYNeLP SwoG36Hx3srOpzIf5lQMUxFVK 0 VRHynNOhC5ApmD9vSmIuMVMeJ PGqC2JpxUEuJOtvG960PSwcUo K7WCWcluQyS4HhHQYeoRqkGzK 0 r1Q0Gp1RBUvoftp2Q2JiUuyrn HI+EY30APYiOX81zCHfpKLoz2 jxlIl7AmLmWJLrKEB5fOzhASx i b3J (more content not included)... [facility] Consent Formson 06-20-2024 Consent Forms [id number] [facility] Consultation/Specialist Note on 06-20-2024 Consultation/Spec ialist Note [id number] [facility] Outside Recordson 06-20-2024 Outside Records [id number]#1.00OTGTIF [facility] Telemetry Stripson Telemetry Strips [id number]#[id number] [facility] Anesthesia Noteon 06-17-2024 Anesthesia Note Patient: LESLI CLAY Age: 64 years Sex: FEMALE : 1960 Associated Diagnoses: None Author: Farooq Boggs MD Postoperative Information Post Operative Note: Operative Day. Anesthetic utilized: General. Health Status Allergies: Allergic Reactions (All) No known allergies Problem list: All Problems Hypertension / SNOMED CT 9897166769 / Confirmed Occasional tremors / SNOMED CT 78991856 / Confirmed Type 2 diabetes mellitus / SNOMED CT 387868574 / Confirmed Physical Examination Vital Signs (last [...] on: 06/17/2024 14:58 EDT] Farooq Boggs MD [facility] Anesthesia Note Patient: LESLI CLAY Age: 64 years Sex: FEMALE : 1960 Associated Diagnoses: None Author: Farooq Boggs MD Preoperative Information Anesthesia history: Patient history: pt had breathing issues post op after back surgery in [place]. Family was unaware for several hours, but [...] list: All Problems Hypertension / SNOMED CT 3179964049 / Confirmed Occasional tremors / SNOMED CT 60292759 / Confirmed Type 2 diabetes mellitus / SNOMED CT 639116535 / Confirmed Histories Family History: No family history items have been selected or recorded. Procedure history: Arthroscopy of shoulder ([id number]) on 06/17/2024 at 64 Years. Comments: 06/17/2024 13:21 Marylin Seymour RN Right Neck ([id number]). Comments: 06/01/2024 12:04 Diane Mcgowan RN neck surgery Complete repair of rotator cuff ([id number]). Comments: 06/01/2024 12:04 Diane Mcgowan RN bilateral shoulders Triggering of finger ([id number]). Comments: 06/01/2024 12:05 Diane Mcgowan RN bilateral hands Back ([id number]). Comments: 06/01/2024 12:03 Diane Mcgowan RN back surgery Arthroplasty of knee ([id number]). Comments: 06/01/2024 12:05 Diane Mcgowan RN bilateral knees section ([id number]). Cardiac catheterization ([id number]). H/O: hysterectomy ([id number]). Social History Electronic Cigarette/Vaping Assessment Electronic Cigarette [...] Oriented. Review / Management Laboratory Results Plan [employer] [employer] (ASA) physical status classification: Class III. Anesthetic Preoperative Plan Anesthesia: General. , Regional (Interscalene Block, for post op pain control per surgeon request). Anesthetic plan, risks, benefits, and alternatives discussed with the patient and/or family. Patient verbalized understanding. Informed consent was given. Consent was signed by the patient. [Electronically Signed on: 06/17/2024 13:40 EDT] Farooq Boggs MD [Verified on: 06/17/2024 13:40 EDT] Farooq Boggs MD [facility] Inpatient Patient Summaryon 06-17-2024 Inpatient [place] [address] Patient Discharge Instructions Name: LESLI CLAY : 1960 Patient Address: [address] [place] [address] Primary Care Provider: Name: JENNIFER CABRERA After you are discharged if you find you have any questions, please, call [phone] ext [phone] to speak to a nurse. Discharge Diagnosis: [...] alcohol and/or drug addiction problems; contact the [facility] 08/09 Crisis Hotline -Text 4HOPE to 804158. If you received any narcotics, sedation, or [...] business decisions or sign any legal documents [facility] would like to thank you for allowing us to assist you with your healthcare needs. The following includes patient education materials and information regarding your injury/illness. LESLI CLAY has been given the following list of follow-up instructions, prescriptions, and patient education materials: Follow-up Instructions With: Address: When: Lauren Torres [address] [place] [address] [facility] (1) 07/01/2024 10:00 AM Medications During the [...] capsule) 1 c (more content not included)... [facility] MAGR Intraoperative Recordon 06-17-2024 MAGR Intraoperative Record MAGR Intra-Op Record Summary Primary Physician: RICA RODRIGUEZ DO Finalized Date/Time: 06/17/24 14:39:23 Pt. Name: CHRIS CLAYJAQUI Morel./Sex: 1960 FEMALE Med Rec #: [id number] Physician: RICA RODRIGUEZ DO Financial #: [id number] Pt. Type: D Room/Bed: / Admit/Disch: 06/17/24 [...] Role Performed Surgeon - Primary Anesthesiologist of Automation Engineer Record Time In 06/17/24 13:02:00 06/17/24 13:02:00 06/17/24 13:02:00 Time Out 06/17/24 14:15:00 06/17/24 14:34:00 06/17/24 14:34:00 Procedure Arthroscopy Arthroscopy Arthroscopy Shoulder(Right) Shoulder(Right) Shoulder(Right) Last Modified By: Mary Alice Botello RN, Diane RN Kokinda, Diane RN 06/17/24 14:35:27 06/17/24 14:35:27 06/17/24 14:35:27 Entry 4 Entry 5 Entry 6 Case Attendee Yamilet Rodriguez CST, Brittany E CSFA Radloff, Leigh-Ann CSFA CST HR PAYROLL COORDINATOR Role Performed Scrub Personnel Train Director Scrub Personnel Time In 06/17/24 13:02:00 06/17/24 13:02:00 06/17/24 13:02:00 Time Out 06/17/24 14:34:00 06/17/24 14:34:00 06/17/24 14:34:00 Procedure Arthroscopy Arthroscopy Arthroscopy Shoulder(Right) Shoulder(Right) Shoulder(Right) Last Modified By: Mary Alice Botello RN, Diane RN Kokinda, Diane RN 06/17/24 14:35:27 06/17/24 14:35:27 06/17/24 14:35:27 General Comments: MANOJ JACKSONARTHTENA REP Surgical Procedures MAGR Pre-Care Text: A.20 [...] Concerns n/a Addressed Time Out Yamilet Rodriguez HR PAYROLL COORDINATOR, Time Out Time 06/17/24 13:37:00 Participants Mary Alice Botello RN, Farooq Boggs MD, Kaya Ty [facility] HR PAYROLL COORDINATOR, RICA RODRIGUEZ DO, Tuyet Carrasquillo [facility] HR PAYROLL COORDINATOR Last Modified By: Mary Alice Botello RN [...] Yes Positioning De (more content not included)... [facility] MAGR Intraoperative Record MAGR Intra-Op Record Summary Primary Physician: Finalized Date/Time: 06/17/24 13:02:44 Pt. Name: LESLI CLAY D.O.B./Sex: 1960 FEMALE Med Rec #: [id number] Physician: RICA RODRIGUEZ DO Financial #: [id number] Pt. Type: D Room/Bed: / Admit/Disch: 06/17/24 [...] Draper, Lora RN Role Performed Anesthesiologist of Automation Engineer Automation Engineer Record Time In 06/17/24 12:35:00 06/17/24 12:34:00 [...] hair removal performed (more content not included)... [facility] MAGR PACU Recordon MAGR PACU Record MAGR PACU Record [facility] Primary Physician: RICA RODRIGUEZ DO Finalized Date/Time: 06/17/24 15:24:17 Pt. Name: LESLI CLAY/Sex: 1960 FEMALE Med Rec #: [id number] Physician: RICA RODRIGUEZ DO Financial #: [id number] Pt. Type: D Room/Bed: / Admit/Disch: 06/17/24 10:32:36 - Institution: PACU Case Times MAGR Entry 1 In PACU I 06/17/24 14:35:00 Discharge from PACU 06/17/24 15:24:00 I Last Modified By: Marylin Heredia RN 06/17/24 15:24:03 Finalized By: Marylin Heredia RN Document Signatures Signed By: Marylin Heredia RN 06/17/24 15:24 [facility] MAGR Postoperative Recordon 06-17-2024 MAGR Postoperative Record MAGR Phase II Record Summary Primary Physician: RICA RODRIGUEZ DO Finalized Date/Time: 06/17/24 16:57:02 Pt. Name: LESLI CLAY/Sex: 1960 FEMALE Med Rec #: [id number] Physician: RICA RODRIGUEZ DO Financial #: [id number] Pt. Type: D Room/Bed: / Admit/Disch: 06/17/24 [...] Signed By: Marylin Heredia RN 06/17/24 16:57 [facility] MAGR Preoperative Recordon 0 06-17-2024 MAGR Preoperative Record MAGR Pre-Op Record Summary Primary Physician: RICA RODIRGUEZ DO Finalized Date/Time: 06/17/24 13:03:22 Pt. Name: PHILLYLESLI./Sex: 1960 FEMALE Med Rec #: [id number] Physician: RICA RODRIGUEZ DO Financial #: [id number] Pt. Type: D Room/Bed: / Admit/Disch: 06/17/24 [...] Signed By: Marylin Heredia RN 06/17/24 13:03 [facility] POCT Glucose Levelon 025 Glucose [Mass/Vol] 156 mg/dL High 74-118 [facility] Comment on above: Result Comment: OPR_ ID=IN_LIST,TGC FLAG = False,Meter:[id number] Patient Day Coordinator:2004 Dianne Houser Performed By: #### 4 [id number] ####[facility] (DEFAULT)[address] [place] [address] Glucose [Mass/Vol] 170 mg/dL High [address] [place] [address] Comment on above: Result Comment: OPR_ ID=IN_LIST,TGC FLAG = False,Meter:[id number] Patient Day Coordinator:2004 Dianne Houser Performed By: #### 4 [id number] ####[facility] (DEFAULT)[address] [place] [address] Patient Handouton 06-17-2024 Patient Handout Outpatient Shoulder [...] or fever, please call Dr. Rodriguez at [phone]. 6.) Keep dressings in place, clean and [...] or concerns, please call the office at [phone] or [phone] [facility] Progress Note - Nurseon 05-0 Progress Note - Nurse pre-op call made to pt. pt states understanding of arrival time of 1030 on 06/17/24 and NPO after [place]. [Electronically Signed on: 06/16/2024 09:12 EDT] Rowena Uribe RN [Verified on: 06/16/2024 09:12 EDT] Rowena Uribe RN [facility] Progress Note - Nurseon - Progress Note - Nurse Dr Wren reviews pt chart and clearance from PCP. Dr Wren states that pt will have to have acceptable BP DOS to proceed with surgery. [Electronically Signed on: 06/15/2024 12:46 EDT] Diane Smith RN [Verified on: 06/15/2024 12:46 EDT] Diane Smith RN [facility] Coding Summaryon 06-07-2024 Coding Summary HTMLBase 64 RqgaarlxWCk6wOu+PGhlYWQ+P T7INITqE88tfGIpzB2qK3WMFV lOSywgQVBQTElOSyIgbmFtZT1 kaXNjZXJu IC8+KS7nMLIgDqrczVHku2R9d XM5S39fzs4eBWzieIM4PEKcLe Sapxyqr6twhXd6CPrfUwpbSrP t WIWigO60IZT9jA91Ni44fLBdr MMyh5tvzWc8FeTkSHTpISN8yM rdXRwqx5XeXNOcL41pePTrl5V 6 NJRhkNuwlOFtHfLneYH7cQ7nH Vsggiugu9somnqfHlq2yx25jE Cob6M3nZO2H0KppkI0DRTryBA g ZdkwrGXVaS8qrdmhk5flgzuxI dXzQKIhEKq4YPc1XNGbgItwAi ZlNM54RYX0PKNaqbTnW1GuBTI s lFgfYtU3g3W9Yr1NK2CQNssrS 1VNTUFSWTwvdGQ+IU36zb10L5 SvRbgsAao6HAIbUXO5bMW0hP0 n ARCjXGvei6R2zKS6R0BtmcQfh k4xi5csEBOvYNcrT01gwZZlz4 M7QQHxkXP0ZNXanEieNyPcjF1 3 Oyc+PJYcwDazq7JxOyalu6kba 0thtGg0AyxvOSEvkrKjfTruNQ H0y7PhHq1yDYSkpBL0gLT1cJ1 i YaFxMfZ1PZoqJ867RjLebQZaL zjtA75xJ1MhbEN+XRXcIjl1CP GpqTlhAZ9rT7IxBYHdvxbrvSN m eOydVC0bOARojavhPWRhfV6hM KWlN8l7IfBcTaO2WEfvE2ZiPR RxifoeYy02rL2sEoNjUaT6TQj u R8WhekB9AWPmyTQfEGevOCC0Y 49zn6F1VCAgBOCoEEK4sVV9kX 1hbGlnbjogbGVmdDsgdmVydGl j KSoaHGzsI758SGBbwYcpPtMlK GluZyBEYXRlOiAgMDQvMjIvMj AyNTwvdGQ+LQFjLAX1hPesRME n kLEgXNwfDk4fzWxepEasIB3pQ DKzckfeKXGfbF3uWLRutEEveU zzMV1rBYCcasoyt888NiEbVBN 0 TBOokVUsC8AduR6eMvReMJGvU PRpI0GbiWDeMSecJ183YKhsQj B2WHAmjkBvZ6HiOCPpeSxaLrT 0 x1Q7Tt7Rk8HzikawD9AshHNhR nVtFxnbAPx8W0IiVcjqyKZ+PC 64WZVeTZ93AVz6KGQ6yVfjWZm i MXBhL9KmiA0kMwOgOZXxKOUbR yc+PHRhYmxlIHdpZHRoPScxMD LxPlRauYjlPA0gVd2eNKVsXIN v sIpxgKIuNmTpj1iyHSIjQYwmY Z1ciBawQ2AuqBI2UIHnm4n0Rl 19D50xG8JyxBI+AMTnmGQ2tXR 0 yT4kXtWgBpO2ZYmgU584OpEfc ZMuMmxuc4fir3xdgGr1PeW2ZF FjunXkxQupOLV0r5VjDb84X30 s IHdpZHRoPSIxNSUiIHZhbGlnb k4qdR9tRt9+ODTsqAX7fZB1lU 6eHjOaOrD3WJsvB428DkPjpHZ v Rogit6sky4tdkUx9LnLmUWWan dEruPczMVN7m8MrYh65G1GamZ rsa4IqUoy8lg12kVHiw4U1mRQ 9 Z6SdVTXcorqrwOXozZikEB0gH CWhlobvWFMaxG8pCGQsQ5h1Wt RqUxG3WZtzG9ZvhkY0UROdyNM g CREceVZRmK0wssdmq3horyzrG tYnSKZpHNh7NFz5CDYwrTrmZs HfVXD9YfW1FSN8tBJawS1oqCv n awiayO9dNio+RAD7pQXvfWQPA Z0dDvkhxAY+GOOaGDP0iMefNS erVEAddJ0mERFfF7l1VrYaXtF 1 TYxkN2MuvzR9NALbbQDeKKAri NFBhE4hadsxy9ssjjqiNaRaNB XjHIm0QTi0TFItuHgsNgEsCWH 0 WsY8WGF5fMDghY4kdVhxpakan G9wOyc+PhjsdUnjSRC8WJd2U0 OkMvg1SFDpkHwtJE9fkHLbORm u Uw0dvCaihDjyNV5fWFJkdobjl 329VdVtr9koLNXbpRGiHDmiKF W9B08fu6O4EZHlQUYfWYE7iPF 4 yB8jkRoyqyoqgQCcoVomgzYke TpyJSivIUmbT154WTFdhVnbUz PkTXu3G7AgWiz0BTEgyBivWS7 n qQAuRFmqUa3ywSminOugDQ5oQ KHrnbcbf145KcJwp7faJHGyaG VdWLihJIQ8V13wo5W9IMRtAAE w DPI8lXM3wC3uqPwtbqnlnEOlm PthogVobVfqQNmaDAhjS251WG TexWuwKkNylTd3N6EfDxk9WRB z rHqqCJ2ulOZfMPdwZi5iqXnqw FxoVG0dMADmcgwip538NoLpt1 ekZONqvGJiKCmmCMZ1U03lh7D 6 GMNwQRRzVNJ3hRU3sE6yoAynx jogbGVmdDsgdmVydGljYWwtYW kiA950TIOyyMpdYlSmuZuedyU g BPigOAy7T7GyOlhjrYC+PC90Y LLzLT97pITevOTud7ztqXi5Yt VgKXPfCWY2cVxqSZxof5KqXXX t T60tvSNlp8P9FDDziCzftSFeD pNrvQK5sW5cUHjyidhve0xzus ogBebiu9pkxj25pO01B13kGRy p NFEkSTGpIQUiUORvfJjmsy7cg G9wIi8+IJHwwVH9dHE8zK4uNJ XoRcU7POpkH628EnJikZVeWso j o8vpi7wdnHy3MmH5FAXnowLwh RlnPGP9j5ZzJy66Q58bDCxkEG HoBRJuMPEpHSSnvTyoxx0rxJ7 w Ii8+JDMtvEM5iOI5rF9wIjRtN wM0KRivL079KhZydFVqNunyI0 2uK9SgyML+LATxZna9FZLtbEb s TV2ecOCbEMrkPi7aNYN0AdCkH vMuZBspG6EtVQMcokmppkqsyZ A6UMXyPFZzqD25Ec8fqEjqMPV w kEZPaV7ztvbrw3kcecwlUlPvD DFkSFw2TTw4BMMbjDzoBkTuXU Z9KuE7RAG9wXVbrZ5nmJibwkb g bQ6iH6ExETXfatbcNc56xG3oA hKcEgR2KGvmUpn+BM6CLILTCM PJVJNVGQXDQBHAQQ4EZW87S9B k Gta2KXDleHuoHD8uvLElHAuhI l4rmDiisCvnIZ8yBXIwvmyjQL FxxQ0eRLHwqGRltGpoUJ1uVIR p dhsbg359OpMyBUF0DBEggVKhJ 9PndD3bWxNkKIFwTDXzR0AupM IzAKwsV959AJzdMwD1VRWnsvA p U8McFPWulHmoWrU5s9L9Lz4kO S0dWM9oPGHpPE19MW34dHYlp5 Z7oXX1N6KbXMZmoabumbotxCD 6 FLBgQNLrpK64vMSiHXhqHp6nm 7Q6a205WOEsPYCuxA87Jk5dqU zgVQVgkGIKsO8eqhepx3vfptn g DkAqYAMbQUf4DPs8ODOajUwbU dXaQAX3ZrV0UIS1eAZsrM7boN lzlvkeyE2aLjf+NjQgWWVhcnM 8 U2XrAbi2JETluIwpKX6fqHDcI JyrIs9lhUykcZwbEY9eAPQkdk dkBIJouP8tHSFgnBXfhAmlNL6 w AFOvvwfiu920JdKlBVN3ETCen RAwA5BjtM5eErJbNNEzUAZsY4 IpjUVcDOrhR654WYpzHeP3BHH l kpVcK9LrLOSyvMmkYzQ9w4U2S q1XJP7UNEM5U2XgEid8ARNypB mqRQ1psQYnBJerHw1glIawbVm g PT9oINPlxaczRPOxiP8gBGKxm FWjiTsvWZ7jSMNoljghv101Rs AcWSC4MYBeqLImF7PsyS1wXwO j SEAtCKJaP4QssKWjKZfoO374M FvzRwA6YVFpicVpS4AjUETjgQ vjUaM9u4M9Rh4GYAzzqIB+PC9 0 sb04D4LiJsljSjw0JXJjUVV4m WN3lF0eEIBeYNutc9Z0dYV3T0 GqmdZnuk3qt0grYGTdDBdxK07 s uEBll3E0DVCxjAY3CZYeyUrpE fFdrA25Pvs+RPQlkDtbk7ErPg xbl9rxt2voaAs0JgAaMQRvubI s oZtbADM8e4ZnUi27R85mBVneD CHxRIAoIUUnCKSqvTqgdv1odM 9wIi8+YTIwzPW2yJA1wW7uPwZ l LrU1SBlgN907DtApuPHdEyntj 2dck0ociRm0ReDmDQJsuhBmfU azDBK5f5PcVm31A1EehXori3C w Eno1ps95jTYog7H4zCG0J1ZaV JAlkufbzQWwjUduXK1cCPGjut hnLXLbhL3aOHEaA2u1QmSpHjC 1 ZRlaR1FykwG2QKVbtORxERPwg CGEhO1hzsrxt6dycnyuKbZaYN JlEYu9HAt3HOIujFtqIqHzHFO 0 NbW0TPS3vNIsnG5ebUmexiheb G9wOyc+GDc9q1rdwSEkME0caF N7PX73QG49dHYit9N3tXX6T2H h RBKfaizzzoffwTO6ZAHvJIDeb X92Hu1rhHnaBq5rMGOsENP1QN ZpqEGaJ7MouI9oMrEmMEAeANH w R5AjsQQyHXhpO975INnnAlJ7U PBcbqYgQ9JgFXDybHvmCvE8f1 N7No0LPM51TR35NJ64tZGsx6T 5 sWZ5R6MpFBDuveunvjpknWD3R VPfXWPlbJ66Ag2wpWynMd5vFI GrYEC3EYRkbXWyX9SjsL3hFrW j SQAkPHEgB9NuhGSkKAxsG939P DftUtV0WKZbybSuM6YxDBYktE xxAxM3t2X7Tu8BLp28DQ28EI4 8 lGErx8L7aVK3P3SkXNBjjowxx niptAN7WTGcUMGccP82Ua3obA irKt6bMFQwVTN8FKBufPCwT4N v fK1sRjRzVUXeWWPjN3BsmWOfA MkcI704PZlkDbH5ZLHbkuCqC5 HkZKNdnAfvVjK3z6F3Hf5NVKo l izh4B7HwCqiuoVZ+CX27MWPsW U00jHMqxQKmr2npnTg5KjYaUH QcVDM9bOhwPFxez4HsWXAsL09 s bGF (more content not included)... [facility] Progress Note - Gael 04- Progress Note - Nurse Dr Galo reviews pt chart and wants medical clearamce d/t elevated BP on PAT visit. [Electronically Signed on: 06/02/2024 13:58 EDT] Diane Smith RN [Verified on: 06/02/2024 13:58 EDT] Diane Smith RN Spoke with Nicole at Dr Contreras office and informed her of the need for medical clearance. [Electronically Signed on: 06/02/2024 13:59 EDT] Diane Smith RN Normal [facility] .Auto Diff 1on 06-01-2024 Auto [place] % 8 % Normal 1-12 [facility] Comment on above: Performed By: #### 7 [id number], [id number], [id number] ####[facility] (DEFAULT)[address] [place] [address] 05937 Baso Abs# 0.1 x10 Normal 0.0-0.2 [facility] Comment on above: Performed By: #### 7 914074, [id number], [id number] ####[facility] (DEFAULT)[address] [place] [address] 21013 Basophils/100 WBC (Bld) 0.9 % Normal 0.2-2.0 [facility] Comment on above: Performed By: #### 7 408270, [id number], [id number] ####[facility] (DEFAULT)[address] [place] [address] 80764 Eos Abs# 0.2 x10 Normal 0.0-0.4 [facility] Comment on above: Performed By: #### 7 511251, [id number], [id number] ####[facility] (DEFAULT)[address] [place] [address] 53314 Eosinophils/100 WBC (Bld) 2.2 % Normal 0.9-4.0 [facility] Comment on above: Performed By: #### 7 587833, [id number], [id number] ####[facility] (DEFAULT)[address] [place] [address] 26345 Lymph Abs# 1.9 x10 Normal 1.3-2.9 [facility] Comment on above: Performed By: #### 7 122192, [id number], [id number] ####[facility] (DEFAULT)[address] [place] [address] 31944 Lymphocytes/100 WBC (Bld) 19 % Normal 14-48 [facility] Comment on above: Performed By: #### 7 704816, [id number], [id number] ####[facility] (DEFAULT)[address] [place] [address] [place] Abs# 0.8 x10 Normal 0.0-0.8 [facility] Comment on above: Performed By: #### 7 617034, [id number], [id number] ####[facility] (DEFAULT)[address] [place] [address] Neut Abs# 7.4 x10 Normal 1.5-9.2 [facility] Comment on above: Performed By: #### 7 938424, [id number], [id number] ####[facility] (DEFAULT)[address] [place] [address] 40956 Neutrophils/100 WBC (Bld) 71 % Normal 44-88 [facility] Comment on above: Performed By: #### 7 494861, [id number], [id number] ####[facility] (DEFAULT)[address] [place] [address] 68427 BMP Standardon 06-01-2024 eGFR Non AA >60 Invalid Interpretation Code [facility] Comment on above: Performed By: #### 7 264276, [id number], [id number] ####[facility] (DEFAULT)[address] [place] [address] eGFR AA >60 Invalid Interpretation Code [facility] Comment on above: Performed By: #### 7 845946, [id number], [id number] ####[facility] (DEFAULT)[address] [place] [address] 53570 Calcium [Mass/Vol] 9.3 mg/dL Normal 8.9-10.3 [facility] Comment on above: Performed By: #### 7 526918, [id number], [id number] ####[facility] (DEFAULT)[address] [place] [address] 40504 Chloride [Moles/Vol] 99 mmol/L Low 101-111 [facility] Comment on above: Performed By: #### 7 798243, [id number], [id number] ####[facility] (DEFAULT)[address] [place] [address] 51302 CO2 [Moles/Vol] 28 mmol/L Normal 21-32 [facility] Comment on above: Performed By: #### 7 733875, [id number], [id number] ####[facility] (DEFAULT)[address] [place] [address] 53446 Creatinine [Mass/Vol] 0.72 mg/dL Normal 0.60-1.30 [facility] Comment on above: Performed By: #### 7 473088, [id number], [id number] ####[facility] (DEFAULT)[address] [place] [address] 21062 Glucose [Mass/Vol] 89.0 mg/dL Normal 74.0-118.0 [facility] Comment on above: Performed By: #### 7 397838, [id number], [id number] ####[facility] (DEFAULT)[address] [place] [address] 17192 Potassium [Moles/Vol] 4.6 mmol/L Normal 3.6-5.1 [facility] Comment on above: Performed By: #### 7 890790, 62857801, [id number] ####[facility] (DEFAULT)[address] [place] [address] 15891 Sodium [Moles/Vol] 135.0 mmol/L Low 136.0-144.0 [facility] Comment on above: Performed By: #### 7 943182, [id number], [id number] ####[facility] (DEFAULT)[address] [place] [address] 82872 Urea nitrogen [Mass/Vol] 17 mg/dL Normal 8-26 [facility] Comment on above: Performed By: #### 7 401862, [id number], [id number] ####[facility] (DEFAULT)[address] [place] [address] 37704 Anion gap [Moles/Vol] 12.6 mmol/L Normal 5.0-19.0 [facility] Comment on above: Performed By: #### 7 383914, [id number], [id number] ####[facility] (DEFAULT)[address] [place] [address] 49585 Osmolality 271 mOsm/L Invalid Interpretation Code [facility] Comment on above: Performed By: #### 7 437677, 62441206, [id number] ####[facility] (DEFAULT)[address] [place] [address] 51200 Urea nitrogen/Creatini ne [Mass ratio] 23.6 mg/mg High 4.6-16.2 [facility] Comment on above: Performed By: #### 7 965299, 04749835, [id number] ####[facility] (DEFAULT)[address] [place] [address] 34070 CBC w/ Auto Diffon 5 Erythrocyte distribution width (RBC) [Ratio] 17.2 % High 11.5-15.0 [facility] Comment on above: Performed By: #### 7 880354, 62715506, [id number] ####[facility] (DEFAULT)[address] [place] [address] 55611 Hematocrit (Bld) [Volume fraction] 36.4 % Normal 33.7-40.4 [facility] Comment on above: Performed By: #### 7 385766, 52657478, [id number] ####[facility] (DEFAULT)[address] [place] [address] 14700 Hemoglobin (Bld) [Mass/Vol] 11.9 g/dL Normal 11.3-15.9 [facility] Comment on above: Performed By: #### 7 300809, 06775786, [id number] ####[facility] (DEFAULT)[address] [place] [address] 94469 Man Diff? Auto Invalid Interpretation Code [facility] Comment on above: Performed By: #### 7 614383, [id number], [id number] ####[facility] (DEFAULT)[address] [place] [address] 52434 MCH (RBC) [Entitic mass] 28 pg Normal 24-34 [facility] Comment on above: Performed By: #### 7 157540, 99054544, [id number] ####[facility] (DEFAULT)[address] [place] [address] 37781 MCHC (RBC) [Mass/Vol] 33 g/dL Normal 26-37 [facility] Comment on above: Performed By: #### 7 632065, 73634193, [id number] ####[facility] (DEFAULT)[address] [place] [address] 43460 MCV (RBC) [Entitic vol] 84 fL Normal 81-100 [facility] Comment on above: Performed By: #### 7 685092, 10418488, [id number] ####[facility] (DEFAULT)[address] [place] [address] 18006 Platelet 298 x10 Normal 138-427 [facility] Comment on above: Performed By: #### 7 531022, 16101119, [id number] ####[facility] (DEFAULT)[address] [place] [address] 65508 Platelet mean volume (Bld) [Entitic vol] 7.9 fL Normal 6.3-10.2 [facility] Comment on above: Performed By: #### 7 821669, 73625045, [id number] ####[facility] (DEFAULT)[address] [place] [address] 70608 RBC 4.31 x10 Normal 3.70-5.30 [facility] Comment on above: Performed By: #### 7 420905, 39306059, [id number] ####[facility] (DEFAULT)[address] [place] [address] 97458 WBC 10.5 x10 Normal 3.5-10.5 [facility] Comment on above: Result Comment: Slid e Reviewed Performed By: #### 7 821480, [id number], [id number] ####[facility] (DEFAULT)[address] [place] [address] Creatinine [Mass/volume] in UrineOrdered By: Lili Burgos on 05-25-2024 Creatinine (U) [Mass/Vol] Creatinine [Mass/volume] in Urine [facility] Comment on above: No reference range e stablished MicroAlb Creat Ratio,Uon Albumin DL <= 20 mg/L (U) [Mass/Vol] 10.5 mg/dL High 0.0-1.8 [facility] Comment on above: Performed By: #### U RMACRERAT #### [facility] [address] [place] [address] Creatinine, Urine (Random) 102.00 mg/dL Normal [facility] Comment on above: Result Comment: No r eference range established Performed By: #### U RMACRERAT #### [facility] [address] [place] [address] Microalbumin/Crea tinine Ratio 102.9 mg/g High 0.0-30.0 [facility] Comment on above: Result Comment: 30-3 00 mg/g indicates an increased risk for diabetic nephropathy. Greater than 300 mg/g is consistent with clinical nephropathy. (Am. J. Kidney Disease 1995, 25:107) PERFORMED BY: [place] [address] PATHOLOGIST FRUIT TRIMMER CHRISTIANO TORREZ M.D. Performed By: #### U RMACRERAT #### [facility] [address] [place] [address] [place] Microalbumin [Mass/volume] i n UrineOrdered By: Lili Burgos on 05-25-2024 Albumin DL <= 20 mg/L (U) [Mass/Vol] Microalbumin [Mass/volume] in Urine High 0.0-1.8 [facility] Urine microalbumin/creatinin e mass ratioOrdered By: Lili Burgos on 05-25-2024 Albumin/Creatinin e DL <= 20 mg/L (U) [Mass ratio] Urine microalbumin/creatinine mass ratio High 0.0-30.0 [facility] Comment on above: 30-300 mg/g indicate s an increased risk for diabetic nephropathy. Greater than 300 mg/g is consistent with clinical nephropathy. (Am. J. Kidney Disease 1995, 25:107) XR CHEST 2 VIEWSon XR CHEST [...] Carlos Manuel Armando on 03-10-2024 Study report [facility] [place] [address] MRI Report Signed Patient: Lesli Clay R#: [id number] : 1960 Acct:[id number] Age/Sex: 63 / F ADM Date: 5 Loc: MR Room: Type: [facility] Attending Dr: Lauren Torres PA-C Copies to: Lauren Torres PA-C~ Ordering Provider: Lauren Torres PA-C Date of Service: 03/10/24 MR/MR shoulder RT wo con: [id number] ([id number]) XR/XR pre/post mri xray: MRI right Shoulder without contrast TECHNIQUE: Multiplanar [...] Manuel Armando M.D.03/10/2024 10:09 AM Dictation Location: [place] [address] Transcribed By: [facility] 03/10/24 1009 Dictated By: Carlos Manuel Armando DO 03/10/24 0959 Signed By: 03/10/24 1009 [facility] XR pre/post mri xrayon 03-10 XR pre/post mri xray [facility] Main [place] [address] [place] [address] MRI Report Signed Patient: Lesli Clay MR#: [id number] : 1960 Acct:[id number] Age/Sex: 63 / F ADM Date: 03/10/24 Loc: Room: Type: [facility] CLI Attending Dr: Lauren Torres PA-C Copies to: Lauren Torres PA-C Ordering Provider: Lauren Torres PA-C Date of Service: 03/10/24 MR/MR shoulder RT wo con: [id number] ([id number]) XR/XR pre/post mri xray: M24.811 MRI right [...] Manuel Armando M.D.03/10/2024 10:09 AM Dictation Location: [place] [address] Transcribed By: [facility] 03/10/24 1009 Dictated By: Carlos Manuel Armando DO 03/10/24 0959 Signed By: 03/10/24 1009 Normal [facility] Laboratory - Chemistry and C hemistry - challengeon 03-01-2024 Creatinine (U) [Mass/Vol] 74 mg/dL [facility] No Panel Informationon 03-01 Urine Microalbumin mg/dl 9.3 [facility] Urine Microalbumin/Crea tinine Ratio 126 [facility] No Panel Informationon 12-29 Bedside Glucose 171 [facility] No Panel Informationon 12-28 SERGIO Iglesias [...] and draped in the usual sterile fashion. [facility] XR Shoulder - right 2 Viewso n 12-29-2023 Imaging Result: AP and Scap Y right shoulder: No acute fracture, no dislocation Moderate AC joint arthrititis, with bone on bone formation and post surgical changes to articular surface Possible calcific tendinitis vs surgical changes Glenohumeral joint preserved with visualized lung manuel clear Impression: No acute bony process right shoulder with ac joint arthritis [facility] Radiology Study observation (narrative) [facility] Laboratory - Chemistry and C hemistry - challengeon 12-24-2023 Cobalamin (Vitamin B12) [Mass/Vol] 225 pg/mL [facility] Albumin [Mass/Vol] 3.9 g/dL [facility] ALP [Catalytic activity/Vol] 91 U/L [facility] ALT [Catalytic activity/Vol] 23 U/L [facility] AST [Catalytic activity/Vol] 16 U/L [facility] Bilirubin [Mass/Vol] 0.3 mg/dL [facility] Calcium [Mass/Vol] 9.4 mg/dL [facility] Chloride [Moles/Vol] 98 mmol/L [facility] CO2 [Moles/Vol] 32 mmol/L [facility] Creatinine [Mass/Vol] 0.82 mg/dL [facility] Glucose [Mass/Vol] 166 mg/dL [facility] Potassium [Moles/Vol] 5.0 mmol/L [facility] Protein [Mass/Vol] 6.9 g/dL [facility] Sodium [Moles/Vol] 137 mmol/L [facility] Urea nitrogen [Mass/Vol] 17 mg/dL [facility] Cholesterol [Mass/Vol] 149 mg/dL [facility] Cholesterol in HDL [Mass/Vol] 61 mg/dL [facility] Cholesterol in LDL [Mass/Vol] 69 mg/dL [facility] Cholesterol.total /Cholesterol in HDL [Mass ratio] 2.4 {ratio} [facility] Triglyceride [Mass/Vol] 100 mg/dL [facility] Laboratory - Hematology and Cell countson 12-24-2023 HbA1c (Bld) [Mass fraction] 8.1 % [facility] No Panel Informationon 12-23 25-Hydroxy Vitamin D Total 28 ng/mL [facility] Estimated Average Glucose 186 [facility] Estimated GFR (Non- 80 mL/min [facility] Cult,Urineon 08-06-2023 Cult,Urine Specimen Description .CLEAN CATCH [...] Tobramycin <=1 SUSCEPTIBLE Trimethoprim/Sulfa <=20 SUSCEPTIBLE Susceptible [facility] Comment on above: Performed By: #### U RC ####[facility] [place] [address] Lab Director: Hermilo Thapa [facility] [place] [address] lab Director: Jonel Calvert MD Glucose,Whole Bloodon 2023 Glucose [Mass/Vol] 316 mg/dL High 65-105 [facility] Glucose [Mass/Vol] 225 mg/dL High 65-105 [facility] Glucose [Mass/Vol] 245 mg/dL High 65-105 [facility] Calcium, Ionicon 07-28-2023 Calcium [Moles/Vol] 1.26 mmol/L Normal 1.13-1.33 [facility] Comment on above: Performed By: #### N EMPLOYEE SERVICES MANAGER #### [facility] [address] [place] [address] Adult Specialist: Hermilo Thapa MD Glucose (POC)on 07-28-2023 Glucose [Mass/Vol] 227 mg/dL High 74-100 [facility] Glucose,Whole Bloodon 2023 Glucose [Mass/Vol] 247 mg/dL High 65-105 [facility] Glucose [Mass/Vol] 252 mg/dL High 65-105 [facility] Glucose [Mass/Vol] 280 mg/dL High 65-105 [facility] Glucose [Mass/Vol] 214 mg/dL High 65-105 [facility] Lactic Acidon 07-28-2023 Lactic Acid,Whole Bl 1.5 mmol/L Normal 0.7-2.1 [facility] Comment on above: Performed By: #### N EMPLOYEE SERVICES MANAGER #### [facility] [address] [place] [address] Adult Specialist: Hermilo Thapa MD Non-Marking Stitcher Cytologyon Case No: [id number] Normal [facility] Comment on above: Performed By: #### N EMPLOYEE SERVICES MANAGER #### [address] [address] Adult Specialist: Hermilo Thapa MD Specimen Description .PELVIC WASHINGS Normal [facility] Comment on above: Performed By: #### N EMPLOYEE SERVICES MANAGER #### [address] [address] Adult Specialist: Hermilo Thapa MD Open Heart Panelon 4 Donald Test INFORMATION NOT PROVIDED [facility] Comment on above: Performed By: #### N EMPLOYEE SERVICES MANAGER #### [address] [address] Adult Specialist: Hermilo Thapa MD Body Temp. 37.0 Normal [facility] Comment on above: Performed By: #### N EMPLOYEE SERVICES MANAGER #### [address] [address] Adult Specialist: Hermilo Thapa MD Carboxy Hgb 1.8 % Normal 0-5 [facility] Comment on above: Result Comment: Reference Range: Non-Smokers 0-2% Average Smoker 2-4% Heavy Smoker <10% Performed By: #### N EMPLOYEE SERVICES MANAGER #### [address] [address] Adult Specialist: Hermilo Thapa MD Chloride [Moles/Vol] 108 mmol/L Normal 98-110 [facility] Comment on above: Performed By: #### N EMPLOYEE SERVICES MANAGER #### [address] [address] Adult Specialist: Hermilo Thapa MD FIO2 40% Normal [facility] Comment on above: Performed By: #### N EMPLOYEE SERVICES MANAGER #### [address] [address] Adult Specialist: Hermilo Thapa MD Glucose [Mass/Vol] 210 mg/dL High 65-105 [facility] Comment on above: Performed By: #### N EMPLOYEE SERVICES MANAGER #### [place] [address] [place] [address] Adult Specialist: Hermilo Thapa MD HCO3 (Bld) [Moles/Vol] 20.2 mmol/L Low 22-27 [facility] Comment on above: Performed By: #### N EMPLOYEE SERVICES MANAGER #### [address] [address] Adult Specialist: Hermilo Thapa MD Hematocrit (Bld) [Volume fraction] 35.7 % Low 36.3-47.1 [facility] Comment on above: Performed By: #### N EMPLOYEE SERVICES MANAGER #### [address] [address] Adult Specialist: Hermilo Thapa MD Hemoglobin (Bld) [Mass/Vol] 11.6 g/dL Low 11.9-15.1 [facility] Comment on above: Performed By: #### N EMPLOYEE SERVICES MANAGER #### [address] [address] Adult Specialist: Hermilo Thapa MD Negative Base Excess 4.4 mmol/L High 0.0-2.0 [facility] Comment on above: Performed By: #### N EMPLOYEE SERVICES MANAGER #### [address] [address] Adult Specialist: Hermilo Thapa MD Oxygen (Bld) [Partial pressure] 106.0 mm[Hg] High 75-95 [facility] Comment on above: Performed By: #### N EMPLOYEE SERVICES MANAGER #### [address] [address] Adult Specialist: Hermilo Thapa MD Oxygen saturation in Blood 97.1 % Normal 94-100 [facility] Comment on above: Performed By: #### N EMPLOYEE SERVICES MANAGER #### [facility] [address] [place] [address] Adult Specialist: Hermilo Thapa MD pCO2 37.7 mmHg Normal 32-45 [facility] Comment on above: Performed By: #### N EMPLOYEE SERVICES MANAGER #### [facility] [address] [place] [address] Adult Specialist: Hermilo Thapa MD pH (Bld) 7.348 [pH] Low 7.350-7.450 [facility] Comment on above: Performed By: #### N EMPLOYEE SERVICES MANAGER #### [facility] [address] [place] [address] Adult Specialist: Hermilo Thapa MD Potassium [Moles/Vol] 4.5 mmol/L Normal 3.6-5.0 [facility] Comment on above: Performed By: #### N EMPLOYEE SERVICES MANAGER #### [facility] [address] [place] [address] Adult Specialist: Hermilo Thapa MD Sodium [Moles/Vol] 135 mmol/L Low 136-145 [facility] Comment on above: Performed By: #### N EMPLOYEE SERVICES MANAGER #### [facility] [address] [place] [address] Adult Specialist: Hermilo Thapa MD Potassium (POC)on 07-28-2023 Potassium [Moles/Vol] 4.8 mmol/L High 3.5-4.5 [facility] Surgical Pathology Reporton 07-28-2023 Surgical Pathology Report (NOTE) Path Number: [id number] -- Diagnosis -- A. CERVIX, UTERUS, BILATERAL [...] WITH MUCINOUS DIFFERENTIATION, FIGO GRADE 2. Jonel Cavlert M.D. Electronically Signed Out 07/30/2023 Clinical Information [...] tissue reveals mcwilliams-red, spongy and vascularized tissue. Field Liability Generalist sections are submitted in 18c as follows: 1 anterior cervix 2 posterior cervix 3-4 posterior endomyometrium 5 client services representative anterior endomyometrium with fat attached at serosa 6 client services representative anterior fat attached to serosa 7-8 anterior cervix and lower uterine segment, longitudinal section 9-10 posterior cervix and lower uterine segment, longitudinal section 11-14 client services representative left fallopian tube, ovary and adnexal soft tissue 15-18 client services representative right fallopian tube, ovary and adnexal soft tissue. B. LESLI CONNERMelvina, RIGHT PELVIC LYMPH NODES Received in formalin [...] in 2c (more content not included)... Normal [facility] Surgical Pathology Report (NOTE) Path Number: [id number] INTERPRETATION Pelvic washings: Satisfactory for evaluation. NEGATIVE FOR MALIGNANCY. Hypocellular fluid with few mononuclear inflammatory cells and strips of benign mesothelial cells. Electronically Signed Out John Paul Noble. 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 Gross Description PELVIC WASHING 30 ml. colorless fluid. MICROSCOPIC DESCRIPTION Microscopic examination performed. Non Marking Stitcher Thin Prep x 1, Cell Block w/ HANH x 1 Processing Lab: [address] [address] Interpretation performed at [address] [address] NONGYNECOLOGICAL CYTOPATHOLOGY CONSULTATION Patient Name: LESLI CLAY [facility] Rec: [id number] [facility] ANATOMIC PATHOLOGY [address] [place] [phone] Normal [facility] CBC with Diffon 07-16-2023 Abs. Basophil 0.03 k/uL Normal 0.00-0.20 [facility] Comment on above: Performed By: #### C P, LIPR, MG, CDP, TSH, GLYHGB #### [place] [address] Adult Specialist: Hermilo Thapa MD Abs.Imm.Granulocy te 0.03 k/uL Normal 0.00-0.30 [facility] Comment on above: Performed By: #### C P, LIPR, MG, CDP, TSH, GLYHGB #### [facility] [address] [place] [address] Adult Specialist: Hermilo Thapa MD Abs.Neutrophil (Seg) 6.45 k/uL Normal 1.50-8.10 [facility] Comment on above: Performed By: #### C P, LIPR, MG, CDP, TSH, GLYHGB #### [facility] [address] [place] [address] Adult Specialist: Hermilo Thapa MD Basophils/100 WBC (Bld) 0 % Normal 0-2 [facility] [facility] Comment on above: Performed By: #### C P, LIPR, MG, CDP, TSH, GLYHGB #### [address] [address] Adult Specialist: Hermilo Thapa MD Eosinophils (Bld) [#/Vol] 0.15 10*3/uL Normal 0.00-0.44 [facility] Comment on above: Performed By: #### C P, LIPR, MG, CDP, TSH, GLYHGB #### [address] [address] Adult Specialist: Hermilo Thapa MD Eosinophils/100 WBC (Bld) 2 % Normal 1-4 [facility] Comment on above: Performed By: #### C P, LIPR, MG, CDP, TSH, GLYHGB #### [place] [address] Adult Specialist: Hermilo Thapa MD Erythrocyte distribution width (RBC) [Ratio] 14.7 % High 11.8-14.4 [facility] Comment on above: Performed By: #### C P, LIPR, MG, CDP, TSH, GLYHGB #### [address] [address] Adult Specialist: Hermilo Thapa MD Hematocrit (Bld) [Volume fraction] 37.3 % Normal 36.3-47.1 [facility] Comment on above: Performed By: #### C P, LIPR, MG, CDP, TSH, GLYHGB #### [address] [address] Adult Specialist: Hermilo Thapa MD Hemoglobin (Bld) [Mass/Vol] 11.7 g/dL Low 11.9-15.1 [facility] Comment on above: Performed By: #### C P, LIPR, MG, CDP, TSH, GLYHGB #### [address] [address] Adult Specialist: Hermilo Thapa MD Immature granulocytes/100 WBC (Bld) 0 % Normal 0 [facility] Comment on above: Performed By: #### C P, LIPR, MG, CDP, TSH, GLYHGB #### [address] [address] Adult Specialist: Hermilo Thapa MD Lymphocytes (Bld) [#/Vol] 2.59 10*3/uL Normal 1.10-3.70 [facility] Comment on above: Performed By: #### C P, LIPR, MG, CDP, TSH, GLYHGB #### [address] [address] Adult Specialist: Hermilo Thapa MD Lymphocytes/100 WBC (Bld) 26 % Normal 24-43 [facility] Comment on above: Performed By: #### C P, LIPR, MG, CDP, TSH, GLYHGB #### [place] [address] Adult Specialist: Hermilo Thapa MD MCH (RBC) [Entitic mass] 27.6 pg Normal 25.2-33.5 [facility] Comment on above: Performed By: #### C P, LIPR, MG, CDP, TSH, GLYHGB #### [place] [address] Adult Specialist: Hermilo Thapa MD MCHC (RBC) [Mass/Vol] 31.4 g/dL Normal 28.4-34.8 [facility] Comment on above: Performed By: #### C P, LIPR, MG, CDP, TSH, GLYHGB #### [address] [address] Adult Specialist: Hermilo Thapa MD MCV (RBC) [Entitic vol] 88.0 fL Normal 82.6-102.9 [facility] Comment on above: Performed By: #### C P, LIPR, MG, CDP, TSH, GLYHGB #### [place] [address] Adult Specialist: Hermilo Thapa MD Monocytes (Bld) [#/Vol] 0.59 10*3/uL Normal 0.10-1.20 [facility] Comment on above: Performed By: #### C P, LIPR, MG, CDP, TSH, GLYHGB #### [address] [address] Adult Specialist: Hermilo Thapa MD Monocytes/100 WBC (Bld) 6 % Normal 3-12 [facility] Comment on above: Performed By: #### C P, LIPR, MG, CDP, TSH, GLYHGB #### [place] [address] Adult Specialist: Hermilo Thapa MD Neutrophil (Seg) 66 % High 36-65 [facility] Comment on above: Performed By: #### C P, LIPR, MG, CDP, TSH, GLYHGB #### [place] [address] Adult Specialist: Hermilo Thapa MD NRBC Automated 0.0 per 100 WBC Normal 0.0 [facility] Comment on above: Performed By: #### C P, LIPR, MG, CDP, TSH, GLYHGB #### [place] [address] Adult Specialist: Hermilo Thapa MD Platelet mean volume (Bld) [Entitic vol] 10.2 fL Normal 8.1-13.5 [facility] Comment on above: Performed By: #### C P, LIPR, MG, CDP, TSH, GLYHGB #### [address] [address] Adult Specialist: Hermilo Thapa MD Platelets (Bld) [#/Vol] 325 10*3/uL Normal 138-453 [facility] Comment on above: Performed By: #### C P, LIPR, MG, CDP, TSH, GLYHGB #### [facility] [address] [place] [address] Adult Specialist: Hermilo Thapa MD RBC (Bld) [#/Vol] 4.24 10*6/uL Normal 3.95-5.11 [facility] Comment on above: Performed By: #### C P, LIPR, MG, CDP, TSH, GLYHGB #### [address] [address] Adult Specialist: Hermilo Thapa MD RBC morphology finding Nom (Bld) ANISOCYTOSIS PRESENT Normal [facility] Comment on above: Performed By: #### C P, LIPR, MG, CDP, TSH, GLYHGB #### [facility] [address] [place] [address] Adult Specialist: Hermilo Thapa MD WBC (Bld) [#/Vol] 9.8 10*3/uL Normal 3.5-11.3 [facility] Comment on above: Performed By: #### C P, LIPR, MG, CDP, TSH, GLYHGB #### [address] [address] Adult Specialist: Hermilo Thapa MD Comp Metabolic Profon 2023 Albumin [Mass/Vol] 4.4 g/dL Normal 3.5-5.2 [facility] Comment on above: Performed By: #### C P, LIPR, MG, CDP, TSH, GLYHGB #### [facility] [address] [place] [address] Adult Specialist: Hermilo Thapa MD Albumin/Glob Ratio 1.0 Normal 1.0-2.5 [facility] Comment on above: Performed By: #### C P, LIPR, MG, CDP, TSH, GLYHGB #### [address] [address] Adult Specialist: Hermilo Thapa MD Alkaline Phos 103 U/L Normal 35-104 [facility] Comment on above: Performed By: #### C P, LIPR, MG, CDP, TSH, GLYHGB #### [address] [address] Adult Specialist: Hermilo Thapa MD ALT [Catalytic activity/Vol] 15 U/L Normal 10-35 [facility] Comment on above: Performed By: #### C P, LIPR, MG, CDP, TSH, GLYHGB #### [address] [address] Adult Specialist: Hermilo Thapa MD Anion gap [Moles/Vol] 13 mmol/L Normal 9-16 [facility] Comment on above: Performed By: #### C P, LIPR, MG, CDP, TSH, GLYHGB #### [address] [address] Adult Specialist: Hermilo Thapa MD AST [Catalytic activity/Vol] 18 U/L Normal 10-35 [facility] Comment on above: Performed By: #### C P, LIPR, MG, CDP, TSH, GLYHGB #### [address] [address] Adult Specialist: Hermilo Thapa MD Bilirubin [Mass/Vol] 0.3 mg/dL Normal 0.00-1.20 [facility] Comment on above: Performed By: #### C P, LIPR, MG, CDP, TSH, GLYHGB #### [address] [address] Adult Specialist: Hermilo Thapa MD Calcium [Mass/Vol] 9.9 mg/dL Normal 8.6-10.4 [facility] Comment on above: Performed By: #### C P, LIPR, MG, CDP, TSH, GLYHGB #### [facility] [address] [place] [address] Adult Specialist: Hermilo Thapa MD Chloride [Moles/Vol] 103 mmol/L Normal 98-107 [facility] Comment on above: Performed By: #### C P, LIPR, MG, CDP, TSH, GLYHGB #### [facility] [address] [place] [address] Adult Specialist: Hermilo Thapa MD CO2 [Moles/Vol] 23 mmol/L Normal 20-31 [facility] Comment on above: Performed By: #### C P, LIPR, MG, CDP, TSH, GLYHGB #### [address] [address] Adult Specialist: Hermilo Thapa MD Creatinine [Mass/Vol] 1.0 mg/dL High 0.50-0.90 [facility] Comment on above: Performed By: #### C P, LIPR, MG, CDP, TSH, GLYHGB #### [address] [address] Adult Specialist: Hermilo Thapa MD GFR/1.73 sq M.predicted among non-blacks MDRD (S/P/Bld) [Vol rate/Area] 64 mL/min/{1.73_m2} Normal >60 [facility] Comment on above: Result Comment: [...] P, LIPR, MG, CDP, TSH, GLYHGB #### [facility] [address] [place] [address] Adult Specialist: Hermilo Thapa MD Glucose [Mass/Vol] 161 mg/dL High 74-99 [facility] Comment on above: Performed By: #### C P, LIPR, MG, CDP, TSH, GLYHGB #### [facility] [address] [place] [address] Adult Specialist: Hermilo Thapa MD Potassium [Moles/Vol] 4.7 mmol/L Normal 3.7-5.3 [facility] Comment on above: Performed By: #### C P, LIPR, MG, CDP, TSH, GLYHGB #### [facility] [address] [place] [address] Adult Specialist: Hermilo Thapa MD Protein [Mass/Vol] 7.9 g/dL Normal 6.6-8.7 [facility] Comment on above: Performed By: #### C P, LIPR, MG, CDP, TSH, GLYHGB #### [facility] [address] [place] [address] Adult Specialist: Hermilo Thapa MD Sodium [Moles/Vol] 139 mmol/L Normal 136-145 [facility] Comment on above: Performed By: #### C P, LIPR, MG, CDP, TSH, GLYHGB #### [facility] [address] [place] [address] Adult Specialist: Hermilo Thapa MD Urea nitrogen [Mass/Vol] 21 mg/dL Normal 8-23 [facility] Comment on above: Performed By: #### C P, LIPR, MG, CDP, TSH, GLYHGB #### [facility] [address] [place] [address] Adult Specialist: Hermilo Thapa MD Hemoglobin A1Con 07-16-2023 Glucose [Mass/Vol] 206 mg/dL Normal [facility] Comment on above: Result Comment: The ADA and AACC recommend providing the estimated average glucose result to permit better patient understanding of their HBA1c result. Performed By: #### C P, LIPR, MG, CDP, TSH, GLYHGB #### [address] [address] Adult Specialist: Hermilo Thapa MD HbA1c (Bld) [Mass fraction] 8.8 % High 4.0-6.0 [facility] Comment on above: Performed By: #### C P, LIPR, MG, CDP, TSH, GLYHGB #### [facility] [address] [place] [address] Adult Specialist: Hermilo Thapa MD Lipid Profileon 07-16-2023 Cholesterol [Mass/Vol] 117 mg/dL Normal 0-199 [facility] Comment on above: Result Comment: Cholesterol Guidelines: <200 Desirable 200-240 Borderline >240 Undesirable Performed By: #### C P, LIPR, MG, CDP, TSH, GLYHGB #### [address] [address] Adult Specialist: Hermilo Thapa MD Cholesterol in HDL [Mass/Vol] 36 mg/dL Low >40 [facility] Comment on above: Result Comment: HDL Guidelines: <40 Undesirable 40-59 Borderline >59 Desirable Performed By: #### C P, LIPR, MG, CDP, TSH, GLYHGB #### [address] [address] Adult Specialist: Hermilo Thapa MD Cholesterol in LDL [Mass/Vol] 60 mg/dL Normal 0-100 [facility] Comment on above: Result Comment: LDL Guidelines: <100 Desirable 100-129 Near to/above Desirable 130-159 Borderline >159 Undesirable Direct (measured) LDL and calculated LDL are not interchangeable tests. Performed By: #### C P, LIPR, MG, CDP, TSH, GLYHGB #### [address] [id number] Adult Specialist: Hermilo Thapa MD Cholesterol in VLDL [Mass/Vol] 21 mg/dL Normal [facility] Comment on above: Performed By: #### C P, LIPR, MG, CDP, TSH, GLYHGB #### [facility] [address] [place] [address] Adult Specialist: Hermilo Thapa MD Cholesterol.total /Cholesterol in HDL [Mass ratio] 3.0 {ratio} Normal [facility] Comment on above: Performed By: #### C P, LIPR, MG, CDP, TSH, GLYHGB #### [facility] [address] [place] [phone] Adult Specialist: Hermilo Thapa MD Triglyceride [Mass/Vol] 107 mg/dL Normal <150 [facility] Comment on above: Result Comment: Triglyceride Guidelines: <150 Desirable 150-199 Borderline 200-499 High >499 Very high Based on AHA Guidelines for fasting triglyceride, November 2011. Performed By: #### C P, LIPR, MG, CDP, TSH, GLYHGB #### [facility] [address] [place] [address] Adult Specialist: Hermilo Thapa MD Magnesiumon 07-16-2023 Magnesium [Mass/Vol] 1.6 mg/dL Normal 1.6-2.4 [facility] Comment on above: Performed By: #### C P, LIPR, MG, CDP, TSH, GLYHGB #### [facility] [address] [place] [address] Adult Specialist: Hermilo Thapa MD Thyroid Stim. Horm.on 2023 Thyroid Stim. Horm. 0.74 uIU/mL Normal 0.27-4.20 [facility] Comment on above: Performed By: #### C P, LIPR, MG, CDP, TSH, GLYHGB #### [facility] [address] [place] [address] Adult Specialist: Hermilo Thapa MD Type + Screenon 05-30-2024 Type + Screen Sample Expiration 07/31/2023,2359 Arm Band Number BE [id number] ABO/Rh(D) O POSITIVE Antibody Screen NEGATIVE Normal [facility] Comment on above: Performed By: #### T YS ####[facility] [place] [address] Lab Director: Hermilo Thapa MD Hemoglobin A1Con 06-30-2023 Glucose [Mass/Vol] 177 mg/dL Normal [facility] Comment on above: Result Comment: The ADA and AACC recommend providing the estimated average glucose result to permit better patient understanding of their HBA1c result. Performed By: #### G LYHGB #### [address] [address] Adult Specialist: Hermilo Thapa MD #### TSHX #### [facility] [address] [place] [address] Adult Specialist: Salvador Israel MD HbA1c (Bld) [Mass fraction] 7.8 % High 4.0-6.0 [facility] Comment on above: Performed By: #### G LYHGB #### [address] [place] [address] Adult Specialist: Hermilo Thapa MD #### TSHX #### [facility] [address] [place], [place] [id number] Adult Specialist: Salvador Israel MD Lipid Profileon 06-30-2023 Cholesterol [Mass/Vol] 144 mg/dL Normal 0-199 [facility] Comment on above: Result Comment: Cholesterol Guidelines: <200 Desirable 200-240 Borderline >240 Undesirable Performed By: #### L IPR #### [address] [address] Adult Specialist: Hermilo Thapa MD Cholesterol in HDL [Mass/Vol] 48 mg/dL Normal >40 [facility] Comment on above: Result Comment: HDL Guidelines: <40 Undesirable 40-59 Borderline >59 Desirable Performed By: #### L IPR #### [address] [place] [address] Adult Specialist: Hermilo Thapa MD Cholesterol in LDL [Mass/Vol] 73 mg/dL Normal 0-100 [facility] Comment on above: Result Comment: LDL Guidelines: <100 Desirable 100-129 Near to/above Desirable 130-159 Borderline >159 Undesirable Direct (measured) LDL and calculated LDL are not interchangeable tests. Performed By: #### L IPR #### [facility] [address] [place] [address] Adult Specialist: Hermilo Thapa MD Cholesterol in VLDL [Mass/Vol] 23 mg/dL Normal [facility] Comment on above: Performed By: #### L IPR #### [facility] [address] [place] [address] Adult Specialist: Hermilo Thapa MD Cholesterol.total /Cholesterol in HDL [Mass ratio] 3.0 {ratio} Normal [facility] Comment on above: Performed By: #### L IPR #### [facility] [address] [place] [address] Adult Specialist: Hermilo Thapa MD Triglyceride [Mass/Vol] 115 mg/dL Normal <150 [facility] Comment on above: Result Comment: Triglyceride Guidelines: <150 Desirable 150-199 Borderline 200-499 High >499 Very high Based on AHA Guidelines for fasting triglyceride, November 2011. Performed By: #### L IPR #### [address] [address] Adult Specialist: Hermilo Thapa MD Laboratory - Hematology and Cell countson 06-29-2023 HbA1c (Bld) [Mass fraction] 7.8 % [facility] TSH w/reflex to FT4on 2023 Thyroid Stim. Horm. 3.23 uIU/mL Normal 0.30-5.00 [facility] Comment on above: Performed By: #### G LYHGB #### [facility] [address] [place] [address] Adult Specialist: Hermilo Thapa MD #### TSHX #### [facility] [address] [place] [address] Adult Specialist: Salvador Israel MD CT ABDOMEN PELVIS W [...] Etta Jay MD 06/20/23 Final result Normal [facility] HPV DNA High Riskon 06-16-19 HPV Interp Normal [facility] Comment on above: Result Comment: [...] forensic purposes. Performed By: #### H PVH ####[address] [id number] Director: Hermilo Thapa MD HPV Type 16 Not detected Normal [facility] Comment on above: Performed By: #### H PVH ####[address] [id number] Director: Hermilo Thapa MD HPV Type 18 Not detected Normal [facility] Comment on above: Performed By: #### H PVH ####[address] [phone] Director: Hermilo Thapa MD Other High Risk HPV Not detected Normal [facility] Comment on above: Performed By: #### H PVH ####[address] [phone] Director: Hermilo Thapa MD HPV Sample .THIN PREP [facility] Comment on above: Performed By: #### H PVH ####[address] [phone] Director: Hermilo Thapa MD Source CERVICAL MATERIAL Normal [facility] Comment on above: Performed By: #### H PVH ####[address] [phone] Director: Hermilo Thapa MD Cytology Reporton 06-15-2023 Cytology report Cyto stain.thin prep Doc (Cvx/Vag) (NOTE) Path Number: [id number] DIAGNOSIS Imaged ThinPrep Pap - Cervical (1 monolayer slide): Specimen Adequacy: Satisfactory for evaluation. - Endocervical/transformati on zone component present. Descriptive Diagnosis: Negative for intraepithelial lesion or malignancy. Cytotech Screener: EY Electronically Signed Out DomingaGhulam FRAZIER(ASCP) ey/06/24/2023 Procedure/Addendum HPV Procedure Report Date [...] or for other forensic purposes. Performed at [facility], [address] [place] [address] . Source of Specimen: A: Imaged ThinPrep Pap - Cervical (1 monolayer slide) HPV Reflex?.................. ....HPV Regardless Clinical History Postmenopausal Z12.4 Encounter for screening for malignant neoplasm of cervix Processing Lab: [address] [phone] Interpretation performed at [address] [phone] This Pap Test has been evaluated with [...] GYNECOLOGIC CYTOLOGY REPORT Patient Name: LESLI CLAY [facility] Rec: [id number] [facility] ANATOMIC PATHOLOGY [address] [place] [address]. [place], [place] [address] Normal [facility] SURGICAL PATHOLOGY REFERENCE LAB CONSULTon 05-29-2023 CASE REPORT Normal [facility] Comment on above: Order Comment: Speci men Type: FORMALIN-FIXED PARAFFIN-EMBEDDED TISSUE SPECIMEN Ordering Facility: [facility] Address: [address] [place] [phone] Result Comment: Surg ical Pathology Report Case: [id number] Authorizing Provider: Lukasz Neal MD Collected: 05/29/2023 12:39 PM Ordering Location: [facility] Received: 05/29/2023 12:38 PM [facility] Pathologist: Jeri Dickerson MD Specimen: Slide(s), 2 SLIDES ([id number]) Performed By: #### L [id number] #### [facility] CLIA [id number] [address] [place] [address] [place] CLINICAL HISTORY CONSULT REQUESTED [facility] Comment on above: Order Comment: Speci men Type: FORMALIN-FIXED PARAFFIN-EMBEDDED TISSUE SPECIMEN Ordering Facility: [facility] Address: [address] [place] [phone] Performed By: #### L [id number] #### [facility] CLIA [id number] [address] [place] [address] [place] DIAGNOSIS COMMENT Thank you [...] give me a call at . Normal [facility] Comment on above: Order Comment: Speci men Type: FORMALIN-FIXED PARAFFIN-EMBEDDED TISSUE SPECIMEN Ordering Facility: [facility] Address: [address] [place] [phone] Performed By: #### L [id number] #### [facility] CLIA [id number] [address] [place] [address] [place] FINAL DIAGNOSIS Normal [facility] Comment on above: Order Comment: Speci men Type: FORMALIN-FIXED PARAFFIN-EMBEDDED TISSUE SPECIMEN Ordering Facility: [facility] Address: [address] [place] [phone] Result Comment: Revi ew of outside slides, dated 05/26/2023: Endometrium, curettage: -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 Performed By: #### L [id number] #### [facility] CLIA [id number] [address] [place] [address] [place] FINAL PERFORMING LAB Normal [facility] Comment on above: Order Comment: Speci men Type: FORMALIN-FIXED PARAFFIN-EMBEDDED TISSUE SPECIMEN Ordering Facility: [facility] Address: [address] [place] [phone] Result Comment: Diag nostic interpretation performed at [facility], [address] [place] [address] CLIA# [id number] Seat Cover Maker: oJsh Orellana M.D. Performed By: #### L [id number] #### [facility] CLIA [id number] [address] [place] [address] [place] No Panel Informationon 05-10 Bedside Glucose 121 [facility] - Chemistry and C hemistry - challengeon 04-22-2023 Albumin [Mass/Vol] 4.0 g/dL [facility] ALP [Catalytic activity/Vol] 104 U/L [facility] ALT [Catalytic activity/Vol] 19 U/L [facility] AST [Catalytic activity/Vol] 17 U/L [facility] Bilirubin [Mass/Vol] 0.2 mg/dL [facility] Calcium [Mass/Vol] 9.8 mg/dL [facility] Chloride [Moles/Vol] 101 mmol/L [facility] CO2 [Moles/Vol] 28 mmol/L [facility] Creatinine [Mass/Vol] 0.75 mg/dL [facility] Glucose [Mass/Vol] 228 mg/dL [facility] Potassium [Moles/Vol] 5.0 mmol/L [facility] Protein [Mass/Vol] 6.8 g/dL [facility] Sodium [Moles/Vol] 137 mmol/L [facility] Urea nitrogen [Mass/Vol] 21 mg/dL [facility] Laboratory - Hematology and Cell countson 04-22-2023 HbA1c (Bld) [Mass fraction] 8.9 % [facility] No Panel Informationon 04-21 Estimated GFR (Non- 89 mL/min [facility] No Panel Informationon 04-07 Bedside Glucose 182 [facility] A1C HEMOGLOBINon 02-03-2023 HbA1c (Bld) [Mass fraction] 9.7 % [employer] Other Glucose - FINGER STICKon Glucose [Mass/Vol] 178 mg/dL [employer] Other HbA1c (Bld) [Mass fraction]o n 02-03-2023 A1C HEMOGLOBIN [employer] Other Glucose - FINGER STICKon Glucose [Mass/Vol] 180 mg/dL [employer] Other A1C HEMOGLOBINon 10-03-2022 HbA1c (Bld) [Mass fraction] 8.3 % [employer] Other Glucose - FINGER STICKon Glucose [Mass/Vol] 211 mg/dL [employer] Other HbA1c (Bld) [Mass fraction]o n 10-03-2022 A1C HEMOGLOBIN [employer] Other Creatinine (Bld) [Mass/Vol]O rdered By: Martine Tobias on 09-19-2022 Creatinine [Mass/Vol] 0.7 mg/dL 0.6-1.3 [facility] Comment on above: ER/ESD physician is notified/shown all ISTAT results.Critical values may be confirmed by laboratory testing ifdeemed necessary by ER attending doctor. A1C HEMOGLOBINon 06-06-2022 HbA1c (Bld) [Mass fraction] 8.0 % [employer] Other Glucose - FINGER STICKon Glucose [Mass/Vol] 156 mg/dL [employer] Other HbA1c (Bld) [Mass fraction]o n 06-06-2022 A1C HEMOGLOBIN [employer] Other POINT OF CARE GLUCOSEon 05-17 Glucose [Mass/Vol] 185 mg/dL Critically high 74-106 [facility] Comment on above: Performed By: #### P OCGLUC #### [facility] [address] [address] [address] Keegan Neal A1C HEMOGLOBINon 03-06-2022 HbA1c (Bld) [Mass fraction] 7.8 % [employer] Other CREATININEon 03-06-2022 Creatinine [Mass/Vol] 0.82 mg/dL Normal 0.55-1.02 [facility] Comment on above: Performed By: #### C EJ #### [facility] [address] [address] [address] Keegan Neal EGFR-AF IRANIAN >60 Normal >=60 [facility] [facility] Comment on above: Performed By: #### C EJ #### [facility] [address] [address] [address] Keegan Neal EGFR-NON AF IRANIAN >60 Normal >=60 [facility] Comment on above: Performed By: #### C EJ #### [facility] [address] LSPINE WO W CONon 023 CT LSPINE WO W CON EXAMINATION: CT LSBREONNA WO W CON, 03/06/2022 8:24 AM EST [...] by: BLANE THOMAS Date: 2022-03-06 11:22 Normal [facility] Glucose - FINGER STICKon Glucose [Mass/Vol] 200 mg/dL [employer] Other HbA1c (Bld) [Mass fraction]o n 03-06-2022 A1C HEMOGLOBIN [employer] Other A1C HEMOGLOBINon 10-28-2021 HbA1c (Bld) [Mass fraction] 7.0 % [employer] Other Glucose - FINGER STICKon Glucose [Mass/Vol] 110 mg/dL [employer] Other HbA1c (Bld) [Mass fraction]o n 10-28-2021 A1C HEMOGLOBIN [employer] Other A1C HEMOGLOBINon 07-04-2021 HbA1c (Bld) [Mass fraction] 6.6 % [employer] Other Glucose - FINGER STICKon Glucose [Mass/Vol] 110 mg/dL [employer] Other HbA1c (Bld) [Mass fraction]o n 07-04-2021 A1C HEMOGLOBIN [employer] Other A1C HEMOGLOBINon 11-21-2020 HbA1c (Bld) [Mass fraction] 6.0 % [employer] Other Glucose - FINGER STICKon Glucose [Mass/Vol] 98 mg/dL [employer] Other HbA1c (Bld) [Mass fraction]o n 11-21-2020 A1C HEMOGLOBIN [employer] Other Discharge Summaryon 09-26-19 Discharge Summary MR#: [id number] [facility] Admitted: 09/08/2016 [...] 09/24/2016/02:52 P/Que Cano M.D.Date Trans: 09/25/2016 08:08 A/Nigel_JN:[id number] cc: Rosales Taylor M.D. [address] [facility] [address] Normal [facility] KNEE RIGHT 3 [facility] 7 KNEE RIGHT 3 [facility] [address] [place] [id number] P atient Name: LESLI CLAY : 1960ex: FAge: Race: WhiteMRN: [id number]. Location: 84Patient Status: Date: 09/25/2016 8:15:00 AMCompleted Date: 09/25/2016 08:22 AMRequesting Provider: GEHLING, QUE J Attending Provider: Report Copy To: Signs & Symptoms: Z96.651 Presence of right artificial knee joint [id number]: AthenaComments: , , , Ordering Provider - QUE BLAKE MD , Exam: KNEE RIGHT 3 VWSAccession #: [id number] ======KNEE RIGHT 3 VWS 09/25/2016 8:22 AM [...] changes. Electronically signed by:Mindy Tomas. Transcribed by: [email or web address], User Resident: Electronically Signed by: MINDY TOMAS @ 09/25/2016 04:44 PM Normal [facility] Comment on above: Order Comment: , , = ========= , Ordering Provider - QUE BLAKE MD , Consultationon 09-21-2016 Consultation MR#: [id number]li [facility] Date of Service: [...] September 23, 2016, with Dr. Blake. In [facility], she was placed in a hinged knee brace to prevent flexion of theknee. She was given renewal of Keflex. We prescribed Elberta for pain controland we applied an Armando wrap for edema control.Reviewed By:Desmond Mena MD 09/22/2016 08:26 AElectronically Signed by:Martin Fonseca MD 09/25/2016 03:22 P ___Martin Fonseca MD I was not present but assume all responsibility for the exam. NOTBILLABLEDate Dict: 09/21/2016/10:51 A/Desmond Mena MDDate Trans: 09/21/2016 11:52 A/Nigel_JN:[id number] cc: Rosales Taylor M.D. [address] [facility] [address] Normal [facility] BASIC METABOLIC PANELon 08-0 Calcium 9.6 mg/dL Normal 8.6-10.3 [facility] Comment on above: Performed By: #### 0 0071 ####[facility] [facility] [place] [place] [address], [facility] Chloride 99 mmol/L Normal 98-107 [facility] Comment on above: Performed By: #### 0 0071 ####[facility] [facility] [place] [address], [facility] CO2 29 mmol/L Normal 21-31 [facility] Comment on above: Performed By: #### 0 0071 ####[facility] [facility] [place] [address], [facility] Creatinine 0.91 mg/dL Normal 0.60-1.20 [facility] Comment on above: Performed By: #### 0 0071 ####[facility] [facility].[address] eGFR (black) mL/min/{1.73_m2} Normal >60 [facility] Comment on above: Performed By: #### 0 0071 ####[facility] [facility] [place] [address], [facility] eGFR (non-black) mL/min/{1.73_m2} Normal >60 [facility] Comment on above: Performed By: #### 0 0071 ####[facility] [facility] [place] [address], [facility] Glucose mass conc 151 mg/dL High 70-100 [facility] Comment on above: Performed By: #### 0 0071 ####[facility] [facility] [place] [address], [facility] Potassium molar conc 4.0 mmol/L Normal 3.5-5.1 [facility] Comment on above: Performed By: #### 0 0071 ####[facility] Sodium 137 mmol/L Normal 136-145 [facility] Comment on above: Performed By: #### 0 0071 ####[facility] [facility].[address] Urea nitrogen 13 mg/dL Normal 7-25 [facility] Comment on above: Performed By: #### 0 0071 ####[facility] [facility].[address] C REACTIVE PROTEINon 017 C reactive protein (CRP) 28.5 mg/L High 0.0-7.0 [facility] Comment on above: Performed By: #### 0 0071 ####[address] CBC W/DIFFon 09-20-2016 Basophils Auto #/vol (Bld) 0.5 % Normal 0.0-2.0 [facility] Comment on above: Performed By: #### 0 0071 ####[address] Eosinophils/100 leukocytes 2.1 % Normal 0.0-5.0 [facility] Comment on above: Performed By: #### 0 0071 ####[address] [facility].[address] Erythrocyte distribution width Auto Ratio (RBC) 17.1 % High 11.5-16.9 [facility] Comment on above: Performed By: #### 0 0071 ####[address] [place] [address], [facility] Erythrocytes (RBC) 3.39 mill/mm3 Low 3.50-5.50 [facility] Comment on above: Performed By: #### 0 0071 ####[address] [place] [address], [facility] Hematocrit (HCT) 31.4 % Low 36.0-48.0 [facility] Comment on above: Performed By: #### 0 0071 ####[facility] [facility] [place] [address], [facility] Hemoglobin mass conc (Bld) 10.3 g/dL Low 12.0-15.0 [facility] Comment on above: Performed By: #### 0 0071 ####[facility] [place] [address], [facility] Lymphocytes/100 leukocytes 19.8 % Low 20.0-40.0 [facility] Comment on above: Performed By: #### 0 0071 ####[address] [place] [address], [facility] MCH 30.3 pg Normal 24.0-32.0 [facility] Comment on above: Performed By: #### 0 0071 ####[facility] MCHC mass conc (RBC) 32.7 g/dL Normal 32.0-36.0 [facility] Comment on above: Performed By: #### 0 0071 ####[facility] [place] [address], [facility] MCV 92.6 fL Normal 80.0-100.0 [facility] Comment on above: Performed By: #### 0 0071 ####[facility] [place] [address], [facility] METHOD Normal [facility] Comment on above: Result Comment: Auto mated differential performedNormal RBC Morphology Performed By: #### 0 0071 ####[facility] [place] [address], [facility] MONOS 5.8 % Normal 2-8 [facility] Comment on above: Performed By: #### 0 0071 ####[facility] [place] [address], [facility] Neutrophils/100 leukocytes 71.8 % High 50-70 [facility] Comment on above: Performed By: #### 0 0071 ####[facility] [place] [address], [facility] PLAT CNT 400 Thou/mm3 Normal 100-400 [facility] Comment on above: Performed By: #### 0 0071 ####[facility] [place] [address], [facility] WBC (Leukocytes) 10.6 Thou/mm3 High 4.0-10.0 [facility] Comment on above: Performed By: #### 0 0071 ####[facility] [facility] [place] [address], [facility] SEDIMENTATION RATEon 017 SED RATE 107 mm/hr High 0-20 [facility] Comment on above: Performed By: #### 0 0071 ####[facility] [facility] [place] [address], [facility] POC GLUCOSE LABon 09-15-2016 Glucose mass conc 187 mg/dL High 70-100 [facility] Comment on above: Performed By: #### 0 0071 ####[facility] [facility] [place] [address], [facility] Glucose mass conc 153 mg/dL High 70-100 [facility] Comment on above: Performed By: #### 5 3811, 26962 ####[facility] [facility] [place] [address], [facility] POC GLUCOSE LABon 09-14-2016 Glucose mass conc 198 mg/dL High 70-100 [facility] Comment on above: Performed By: #### 5 6101, 75773 ####[facility] [place] [address], [place] Glucose mass conc 188 mg/dL High 70-100 [facility] Comment on above: Performed By: #### 5 610, 95314 ####[facility] [place] [address], [place] Glucose mass conc 192 mg/dL High 70-100 [facility] Comment on above: Performed By: #### 5 610, 52085 ####[facility] [place] [address], [place] Glucose mass conc 155 mg/dL High 70-100 [facility] Comment on above: Performed By: #### 5 610, 12580 ####[facility] [place] [address], [place] POC GLUCOSE LABon 09-13-2016 Glucose mass conc 223 mg/dL High 70-100 [facility] Comment on above: Performed By: #### 5 6100, 37036 ####[facility] [place] [address], [place] Glucose mass conc 212 mg/dL High 70-100 [facility] Comment on above: Performed By: #### 5 6100, 60761 ####[facility] [place] [address], [place] Glucose mass conc 111 mg/dL High 70-100 [facility] Comment on above: Performed By: #### 5 610, 54964 ####[facility] [place] [address], [place] Glucose mass conc 199 mg/dL High 70-100 [facility] Comment on above: Performed By: #### 5 610, 32048 ####[facility] [place] [address], [place] Glucose mass conc 149 mg/dL High 70-100 [facility] Comment on above: Performed By: #### 5 6100, 84188 ####[facility] [place] [address], [place] POC GLUCOSE LABon 09-12-2016 Glucose mass conc 205 mg/dL High 70-100 [facility] Comment on above: Performed By: #### 5 6100, 58310 ####[facility] [place] [address], [place] Glucose mass conc 132 mg/dL High 70-100 [facility] Comment on above: Performed By: #### 5 6100, 43963 ####[facility] [place] [address], [place] Glucose mass conc 184 mg/dL High 70-100 [facility] Comment on above: Performed By: #### 5 6100, 32472 ####[facility] [place] [address], [place] Glucose mass conc 158 mg/dL High 70-100 [facility] Comment on above: Performed By: #### 5 6100, 85631 ####[facility] [place] [address], [place] POC GLUCOSE LABon 09-11-2016 Glucose mass conc 194 mg/dL High 70-100 [facility] Comment on above: Performed By: #### 5 6100, 09892 ####[facility] [place] [address], [place] Glucose mass conc 192 mg/dL High 70-100 [facility] Comment on above: Performed By: #### 5 6100, 36641 ####[facility] [place] [address], [place] Glucose mass conc 221 mg/dL High 70-100 [facility] Comment on above: Performed By: #### 5 6101, 99329 ####[facility] [place] [address], [facility] Glucose mass conc 147 mg/dL High 70-100 [facility] Comment on above: Performed By: #### 5 6101, 32624 ####[facility] [place] [address], [facility] POC GLUCOSE LABon 09-10-2016 Glucose mass conc 224 mg/dL High 70-100 [facility] Comment on above: Performed By: #### 5 6101, 95388 ####[facility] [facility] [place] [address], [facility] Glucose mass conc 156 mg/dL High 70-100 [facility] Comment on above: Performed By: #### 1 0008 ####[facility] [facility] [place] [address], [facility] Glucose mass conc 240 mg/dL High 70-100 [facility] Comment on above: Performed By: #### 1 0008 ####[facility] [facility] [place] [address], [facility] Glucose mass conc 171 mg/dL High 70-100 [facility] Comment on above: Performed By: #### 1 0008 ####[facility] [facility].[address] BASIC METABOLIC PANELon 08-17 Calcium 8.4 mg/dL Low 8.6-10.3 [facility] Comment on above: Order Comment: No: D o not add to previous draw Performed By: #### 1 0008 ####[facility] [facility] [place] [address], [facility] Chloride 99 mmol/L Normal 98-107 [facility] Comment on above: Order Comment: No: D o not add to previous draw Performed By: #### 1 0008 ####[facility] [facility] [place] [address], [facility] CO2 27 mmol/L Normal 21-31 [facility] Comment on above: Order Comment: No: D o not add to previous draw Performed By: #### 1 0008 ####[facility] [place] [address], [facility] Creatinine 1.11 mg/dL Normal 0.60-1.20 [facility] Comment on above: Order Comment: No: D o not add to previous draw Performed By: #### 1 0008 ####[facility] [place] [address], [facility] eGFR (black) mL/min/{1.73_m2} Normal >60 The [facility] Comment on above: Order Comment: No: D o not add to previous draw Performed By: #### 1 0008 ####[facility] [facility] [place] [address], [facility] eGFR (non-black) 51 ml/min/1.73sq m Abnormal >60 [facility] Comment on above: Order Comment: No: D o not add to previous draw Performed By: #### 1 0008 ####[address] [facility] [place] [address], [facility] Glucose mass conc 161 mg/dL High 70-100 [facility] Comment on above: Order Comment: No: D o not add to previous draw Performed By: #### 1 0008 ####[facility] [place] [address], [facility] Potassium molar conc 4.2 mmol/L Normal 3.5-5.1 [facility] Comment on above: Order Comment: No: D o not add to previous draw Performed By: #### 1 0008 ####[address] [place] [address], [facility] Sodium 134 mmol/L Low 136-145 [facility] Comment on above: Order Comment: No: D o not add to previous draw Performed By: #### 1 0008 ####[facility] Urea nitrogen 24 mg/dL Normal 7-25 [facility] Comment on above: Order Comment: No: D o not add to previous draw Performed By: #### 1 0008 ####[facility] [facility].[address] CBC W/DIFFon 09-09-2016 Basophils Auto #/vol (Bld) 0.2 % Normal 0.0-2.0 [facility] Comment on above: Order Comment: No: D o not add to previous draw Performed By: #### 1 0008 ####[address] Eosinophils/100 leukocytes 1.0 % Normal 0.0-5.0 [facility] Comment on above: Order Comment: No: D o not add to previous draw Performed By: #### 1 0008 ####[address] [facility].[address] Erythrocyte distribution width Auto Ratio (RBC) 16.9 % Normal 11.5-16.9 [facility] Comment on above: Order Comment: No: D o not add to previous draw Performed By: #### 1 0008 ####[address] [facility].[address] Erythrocytes (RBC) 3.31 mill/mm3 Low 3.50-5.50 [facility] Comment on above: Order Comment: No: D o not add to previous draw Performed By: #### 1 0008 ####[address] [facility].[address] Hematocrit (HCT) 30.7 % Low 36.0-48.0 The [facility] Comment on above: Order Comment: No: D o not add to previous draw Performed By: #### 1 0008 ####[facility] Hemoglobin mass conc (Bld) 10.0 g/dL Low 12.0-15.0 [facility] Comment on above: Order Comment: No: D o not add to previous draw Performed By: #### 1 0008 ####[facility] Lymphocytes/100 leukocytes 25.6 % Normal 20.0-40.0 [facility] Comment on above: Order Comment: No: D o not add to previous draw Performed By: #### 1 0008 ####[address] MCH 30.3 pg Normal 24.0-32.0 [facility] Comment on above: Order Comment: No: D o not add to previous draw Performed By: #### 1 0008 ####[facility] [facility].[address] MCHC mass conc (RBC) 32.7 g/dL Normal 32.0-36.0 [facility] Comment on above: Order Comment: No: D o not add to previous draw Performed By: #### 1 0008 ####[facility] [facility].[address] MCV 92.7 fL Normal 80.0-100.0 [facility] Comment on above: Order Comment: No: D o not add to previous draw Performed By: #### 1 0008 ####[facility] [facility] [place] [place] [address], [facility] METHOD Normal [facility] Comment on above: Order Comment: No: D o not add to previous draw Result Comment: Auto mated differential performedNormal RBC Morphology Performed By: #### 1 0008 ####[facility] [facility] [place] [address], [facility] MONOS 6.9 % Normal 2-8 [facility] Comment on above: Order Comment: No: D o not add to previous draw Performed By: #### 1 0008 ####[facility] [place] [address], [facility] Neutrophils/100 leukocytes 66.3 % Normal 50-70 [facility] Comment on above: Order Comment: No: D o not add to previous draw Performed By: #### 1 0008 ####[facility] [place] [address], [facility] PLAT CNT 304 Thou/mm3 Normal 100-400 [facility] Comment on above: Order Comment: No: D o not add to previous draw Performed By: #### 1 0008 ####[facility] [place] [address], [facility] WBC (Leukocytes) 8.7 Thou/mm3 Normal 4.0-10.0 The [facility] Comment on above: Order Comment: No: D o not add to previous draw Performed By: #### 1 0008 ####[facility] Operative Reporton 7 Operative Report MR#: [id number] [facility] Name[facility] Lesli Clay Room #: [id number] Discharge Date: Birthdate: 1960 OPERATIVE REPORTDATE OF [...] 09/08/2016/08:19 P/Que Cano M.D.Date Trans: 09/09/2016 04:17 A/Nigel_JN:[id number] cc: Rosales Taylor M.D. [address] [facility] [address] Normal [facility] POC GLUCOSE LABon 09-09-2016 Glucose mass conc 229 mg/dL High 70-100 [facility] Comment on above: Performed By: #### 1 0008 ####[address] [place] [address], [facility] Glucose mass conc 159 mg/dL High 70-100 [facility] Comment on above: Performed By: #### 1 0008 ####[facility] [facility] [place] [address], [facility] Glucose mass conc 182 mg/dL High 70-100 [facility] Comment on above: Performed By: #### 1 0008 ####[facility] [facility] [place] [address], [facility] Glucose mass conc 159 mg/dL High 70-100 [facility] Comment on above: Performed By: #### 1 0008 ####[facility] [facility] [place] [address], [place] Glucose mass conc 172 mg/dL High 70-100 [facility] Comment on above: Performed By: #### 1 0008 ####[address] POC GLUCOSE LABon 09-08-2016 Glucose mass conc 175 mg/dL High 70-100 [facility] Comment on above: Performed By: #### 8 5499 ####[address] Glucose mass conc 165 mg/dL High 70-100 [facility] Comment on above: Performed By: #### 8 5499 ####[address] Glucose mass conc 173 mg/dL High 70-100 [facility] Comment on above: Performed By: #### 8 5499 ####[address] PORTABLE KNEE RIGHT 2 VWSon 09-08-2016 PORTABLE KNEE RIGHT 2 S [facility]ugmcm[address] [place] [id number] P atient Name: LESLI CLAY : 1960ex: FAge: Race: WhiteMRN: [id number]. Location: OUTPPatient Status: OVisit #: [id number] Date: 09/08/2016 2:05:00 PMCompleted Date: 09/08/2016 02:45 PMRequesting Provider: QUE CANO Attending Provider: QUE BLAKE Report Copy To: Signs & Symptoms: Pain ( specify Location)History: Patient history not availableComments: Hardware Evaluation, please do in PACUExam: PORTABLE KNEE RIGHT 2 VWSAccession #: [id number] ======PORTABLE KNEE RIGHT 2 VWS 09/08/2016 2:45 [...] arthroplasty Electronically signed by:Joan Cormier. Transcribed by: [email or web address], User Resident: Electronically Signed by: JOAN CORMIER @ 09/08/2016 02:48 PM Normal The [facility] Comment on above: Order Comment: Hardw are Evaluation, please do in PACU APTTon 08-25-2016 aPTT 33.0 s Normal 25.0-35.0 [facility] Comment on above: Result Comment: ALL RESULTS [...] THIS PURPOSE. Performed By: #### 5 6101, 49544 ####[facility] [facility] [facility] [place] [address], [facility] BASIC METABOLIC PANELon 08-16 Calcium 9.9 mg/dL Normal 8.6-10.3 The [facility] Comment on above: Performed By: #### 0 0071 ####[facility] [facility] [place] [address], [facility] Chloride 96 mmol/L Low 98-107 [facility] Comment on above: Performed By: #### 0 0071 ####[facility] [facility] [place] [address], [facility] CO2 29 mmol/L Normal 21-31 The [facility] Comment on above: Performed By: #### 0 0071 ####[facility] [facility].[address] Creatinine 0.94 mg/dL Normal 0.60-1.20 The [facility] Comment on above: Performed By: #### 0 0071 ####[facility] [facility].[address] eGFR (black) mL/min/{1.73_m2} Normal >60 The [facility] Comment on above: Performed By: #### 0 0071 ####[place] [address] [facility].[address] eGFR (non-black) mL/min/{1.73_m2} Normal >60 [facility] Comment on above: Performed By: #### 0 0071 ####[place] [address] [address] Glucose mass conc 128 mg/dL High 70-100 [facility] Comment on above: Performed By: #### 0 0071 ####[facility] [facility].[address] Potassium molar conc 4.0 mmol/L Normal 3.5-5.1 [facility] Comment on above: Performed By: #### 0 0071 ####[facility] [facility].[address] Sodium 135 mmol/L Low 136-145 The [facility] Comment on above: Performed By: #### 0 0071 ####[facility] [place] [address], [place] Urea nitrogen 15 mg/dL Normal 7-25 [facility] Comment on above: Performed By: #### 0 0071 ####[facility] [facility] [place] [address], [facility] CBC W/DIFFon 08-25-2016 Basophils Auto #/vol (Bld) 0.2 % Normal 0.0-2.0 The [facility] Comment on above: Performed By: #### 5 3 ####[facility] [facility] [place] [address], [facility] Eosinophils/100 leukocytes 1.6 % Normal 0.0-5.0 The [facility] Comment on above: Performed By: #### 5 102 ####[facility] Erythrocyte distribution width Auto Ratio (RBC) 16.9 % Normal 11.5-16.9 [facility] Comment on above: Performed By: #### 102 ####[facility] Erythrocytes (RBC) 4.18 mill/mm3 Normal 3.50-5.50 [facility] Comment on above: Performed By: #### 102 ####[facility] [facility].[address] Hematocrit (HCT) 38.2 % Normal 36.0-48.0 [facility] Comment on above: Performed By: #### 102 ####[facility] Hemoglobin mass conc (Bld) 12.5 g/dL Normal 12.0-15.0 [facility] Comment on above: Performed By: #### 102 ####[facility] [facility] [place] [address], [facility] Lymphocytes/100 leukocytes 21.4 % Normal 20.0-40.0 [facility] Comment on above: Performed By: #### 5 0103 ####[facility] [facility].[address] MCH 29.9 pg Normal 24.0-32.0 The [facility] Comment on above: Performed By: #### 5 3 ####[facility] [facility].[address] MCHC mass conc (RBC) 32.7 g/dL Normal 32.0-36.0 The [facility] Comment on above: Performed By: #### 5 3 ####[facility] [facility].[address] MCV 91.4 fL Normal 80.0-100.0 The [facility] Comment on above: Performed By: #### 5 3 ####[facility] METHOD Normal The [facility] Comment on above: Result Comment: Auto mated differential performedNormal RBC Morphology Performed By: #### 5 102 ####[facility] MONOS 5.2 % Normal 2-8 The [facility] Comment on above: Performed By: #### 5 3 ####[facility] [facility].[address] Neutrophils/100 leukocytes 71.6 % High 50-70 The [facility] Comment on above: Performed By: #### 5 3 ####[facility] [facility] [place] [address], [facility] PLAT CNT 351 Thou/mm3 Normal 100-400 The [facility] Comment on above: Performed By: #### 5 3 ####[facility] [facility].[address] WBC (Leukocytes) 12.0 Thou/mm3 High 4.0-10.0 [facility] Comment on above: Performed By: #### 5 0103 ####[facility] PROTHROMBIN TIMEon 7 INR Coag RelTime (PPP) 0.97 {INR} Normal 0.91-1.16 The [facility] Comment on above: Result Comment: ACCC P RECOMMENDED INR FOR WARFARIN THERAPY CONDITION INRPROPHYLAXIS OF VENOUS THROMBOSIS 2-3(HIGH-RISK SURGERY)TREATMENT OF VENOUS THROMBOSIS 2-3TREATMENT OF PULMONARY EMBOLISM 2-3PREVENTION OF SYSTEMIC EMBOLISM: 2-3 ACUTE MYOCARDIAL INFARCTION TISSUE HEART VALVES VALVULAR HEART DISEASE ATRIAL FIBRILLATION RECURRENT SYSTEMIC EMBOLISMMECHANICAL HEART VALVE 2.5-3.5 FROM: ORAL ANTICOAGULANTS. MECHANISM OF ACTION, CLINICALEFFECTIVENESS, AND OPTIMAL THERAPEUTIC RANGE. [id number]. Performed By: #### 5 6101, [id number] ####[facility] [facility].[address] Prothrombin time (PT) Coag time (PPP) 12.9 s Normal 12.3-14.8 The [facility] Comment on above: Result Comment: ALL RESULTS MUST BE INTERPRETED WITH RESPECT TO BLOOD DRAWING ARTIFACTOR DILUTION ERROR OF ANTICOAGULANT AT THE TIME OF SAMPLING. Performed By: #### 5 6101, [id number] ####[facility] TYPE AND SCREENon 08-25-2016 ABO INTERPRETATION O Normal The [facility] Comment on above: Performed By: #### 6 2586 ####[facility] [facility] [place] [address], [facility] ANTIBODY SCREEN Negative Normal The [facility] Comment on above: Performed By: #### 6 2586 ####[facility] [facility].[address] RH INTERPRETATION Positive Normal The [facility] Comment on above: Performed By: #### 6 6 ####[facility] [facility].[address] URINALYSISon 08-25-2016 Bilirubin (total) Negative Normal NEGATIVE [facility] Comment on above: Performed By: #### 1 0008 ####[facility] [facility].[address] BLOOD MODERATE Abnormal NEGATIVE The [facility] Comment on above: Performed By: #### 1 0008 ####[facility] [facility] [place] [address], [facility] EPIS MOD Abnormal FEW The [facility] Comment on above: Performed By: #### 1 0008 ####[facility] [facility].[address] Erythrocytes (RBC) 3-5 Abnormal 0-0 [facility] Comment on above: Performed By: #### 1 0008 ####[facility] [facility] [place] [address], [facility] Glucose mass conc Negative Normal NEGATIVE [facility] Comment on above: Performed By: #### 1 0008 ####[facility] [place] [address], [facility] KETONE Negative Normal NEGATIVE The [facility] Comment on above: Performed By: #### 1 0008 ####[facility] [place] [address], [facility] LEUK ZEYNEP TRACE Abnormal NEGATIVE The [facility] Comment on above: Performed By: #### 1 0008 ####[facility] [facility] [place] [address], [facility] pH of blood 7.0 [pH] Normal 5.0-8.0 The [facility] Comment on above: Performed By: #### 1 0008 ####[facility] [facility] [place] [address], [facility] Protein Negative Normal NEGATIVE The [facility] Comment on above: Performed By: #### 1 0008 ####[facility] [facility] [place] [address], [facility] SPEC GRAV 1.006 Low 1.015-1.020 The [facility] Comment on above: Performed By: #### 1 0008 ####[facility] [facility] [place] [address], [facility] Urine, appearance CLEAR Normal CLEAR The [facility] Comment on above: Performed By: #### 1 0008 ####[facility] [facility] [place] [address], [place] Urine, bacteria in sediment MANY Abnormal NONE SEEN The [facility] Comment on above: Performed By: #### 1 0008 ####[facility] [facility] [place] [address], [place] Urine, color STRAW Abnormal YELLOW The [facility] Comment on above: Performed By: #### 1 0008 ####[address] [place] [address], [facility] Urine, nitrite presence Negative Normal NEGATIVE The [facility] Comment on above: Performed By: #### 1 0008 ####[facility] [place] [address] [place] [address], [facility] WBC UA 11-20 Abnormal 0-0 [facility] Comment on above: Performed By: #### 1 0008 ####[facility] [place] [address], [facility] Vital Signs Date Time Vital Sign Value Performing Clinician Diego willoughby 09-23-2024 15:25-0400 Body mass index (BMI) [Ratio] 50.84 kg/m2 Lalitha Trujillo ADMINISTRATIVE PROCESSOR Work Phone: [facility] 09-23-2024 15:25-0400 Body weight 130.18 kg Lalitha Trujillo ADMINISTRATIVE PROCESSOR Work Phone: [facility] 09-23-2024 15:25-0400 Diastolic blood pressure 74 mm[Hg] Lalitha Trujillo ADMINISTRATIVE PROCESSOR Work Phone: [facility] 09-23-2024 15:25-0400 Heart rate 87 /min Lalitha Trujillo ADMINISTRATIVE PROCESSOR Work Phone: [facility] 09-23-2024 15:25-0400 SaO2% (BldA) [Mass fraction] 95 % Lalitha Trujillo ADMINISTRATIVE PROCESSOR Work Phone: [facility] 09-23-2024 15:25-0400 Systolic blood pressure 138 mm[Hg] Lalitha Trujillo ADMINISTRATIVE PROCESSOR Work Phone: [facility] 09-14-2024 14:08-0400 Body height 160 cm Lalitha Trujillo ADMINISTRATIVE PROCESSOR Work Phone: [facility] 09-14-2024 14:08-0400 Body mass index (BMI) [Ratio] 51.02 kg/m2 Lalitha Trujillo ADMINISTRATIVE PROCESSOR Work Phone: [facility] 09-14-2024 14:08-0400 Body weight 130.64 kg Lalitha Trujillo ADMINISTRATIVE PROCESSOR Work Phone: [facility] 09-14-2024 14:08-0400 Diastolic blood pressure 74 mm[Hg] Lalitha Trujillo ADMINISTRATIVE PROCESSOR Work Phone: [facility] 09-14-2024 14:08-0400 Heart rate 78 /min Lalitha Trujillo ADMINISTRATIVE PROCESSOR Work Phone: [facility] 09-14-2024 14:08-0400 Respiratory rate 18 /min Lalitha Trujillo ADMINISTRATIVE PROCESSOR Work Phone: [facility] 09-14-2024 14:08-0400 SaO2% (BldA) [Mass fraction] 98 % Lalitha Trujillo ADMINISTRATIVE PROCESSOR Work Phone: [facility] 09-14-2024 14:08-0400 Systolic blood pressure 128 mm[Hg] Lalitha Trujillo ADMINISTRATIVE PROCESSOR Work Phone: [facility] 08-30-2024 12:31-0400 Body mass index (BMI) [Ratio] 50.95 kg/m2 Lalitha Trujillo ADMINISTRATIVE PROCESSOR Work Phone: [facility] 08-30-2024 12:31-0400 Body temperature 97.3 [degF] Lalitha Trujillo ADMINISTRATIVE PROCESSOR Work Phone: [facility] 08-30-2024 12:31-0400 Body weight 130.46 kg Lalitha Trujillo ADMINISTRATIVE PROCESSOR Work Phone: [facility] 08-30-2024 12:31-0400 Diastolic blood pressure 78 mm[Hg] Lalitha Trujillo ADMINISTRATIVE PROCESSOR Work Phone: [facility] 08-30-2024 12:31-0400 Heart rate 84 /min Lalitha Trujillo ADMINISTRATIVE PROCESSOR Work Phone: [facility] 08-30-2024 12:31-0400 SaO2% (BldA) [Mass fraction] 94 % Lalitha Trujillo ADMINISTRATIVE PROCESSOR Work Phone: [facility] 08-30-2024 12:31-0400 Systolic blood pressure 138 mm[Hg] Lalitha Trujillo ADMINISTRATIVE PROCESSOR Work Phone: [facility] 08-02-2024 09:04-0400 Body mass index (BMI) [Ratio] 51.37 kg/m2 Pastora Jose F ADMINISTRATIVE PROCESSOR Work Phone: [facility] 08-02-2024 09:04-0400 Body temperature 97.3 [degF] Pastora Kohler ADMINISTRATIVE PROCESSOR Work Phone: [facility] 08-02-2024 09:04-0400 Body weight 131.54 kg Pastora Jose F ADMINISTRATIVE PROCESSOR Work Phone: [facility] 08-02-2024 09:04-0400 Diastolic blood pressure 92 mm[Hg] Pastora Kohler ADMINISTRATIVE PROCESSOR Work Phone: [facility] 08-02-2024 09:04-0400 Systolic blood pressure 164 mm[Hg] Pastora Kohler ADMINISTRATIVE PROCESSOR Work Phone: [facility] 06-14-2024 10:35-0400 Diastolic blood pressure 90 mm[Hg] Jennifer Cabrera MD Work Phone: [facility] 06-14-2024 10:35-0400 Systolic blood pressure 136 mm[Hg] Jennifer Cabrera MD Work Phone: [facility] 06-14-2024 09:51-0400 Body height 160 cm Jennifer Cabrera MD Work Phone: [facility] 06-14-2024 09:51-0400 Body mass index (BMI) [Ratio] 51.26 kg/m2 Jennifer Cabrera MD Work Phone: [facility] 06-14-2024 09:51-0400 Body weight 131.27 kg Jennifer Cabrera MD Work Phone: [facility] 06-14-2024 09:51-0400 Heart rate 91 /min Jennifer Cabrera MD Work Phone: [facility] 06-14-2024 09:51-0400 SaO2% (BldA) [Mass fraction] 94 % Jennifer Cabrera MD Work Phone: [facility] 06-10-2024 11:30-0400 Body mass index (BMI) [Ratio] 49.81 kg/m2 Lalitha Trujillo ADMINISTRATIVE PROCESSOR Work Phone: [facility] 06-10-2024 11:30-0400 Body temperature 98.1 [degF] Lalitha Trujillo ADMINISTRATIVE PROCESSOR Work Phone: [facility] 06-10-2024 11:30-0400 Body weight 127.55 kg Lalitha Trujillo ADMINISTRATIVE PROCESSOR Work Phone: [facility] 06-10-2024 11:30-0400 Diastolic blood pressure 86 mm[Hg] Lalitha Trujillo ADMINISTRATIVE PROCESSOR Work Phone: [facility] 06-10-2024 11:30-0400 Heart rate 85 /min Lalitha Trujillo ADMINISTRATIVE PROCESSOR Work Phone: [facility] 06-10-2024 11:30-0400 SaO2% (BldA) [Mass fraction] 97 % Lalitha Trujillo ADMINISTRATIVE PROCESSOR Work Phone: [facility] 06-10-2024 11:30-0400 Systolic blood pressure 128 mm[Hg] Lalitha Trujillo ADMINISTRATIVE PROCESSOR Work Phone: [facility] 05-31-2024 14:38-0400 Body height 160 cm Lauren Torres PA Work Phone: [facility] 05-31-2024 14:38-0400 Body mass index (BMI) [Ratio] 51.19 kg/m2 Lauren Torres PA Work Phone: [facility] 05-31-2024 14:38-0400 Body weight 131.09 kg Lauren Torres PA Work Phone: [facility] 05-25-2024 09:57-0400 Body height 160.02 cm Pastora Kohler ADMINISTRATIVE PROCESSOR-C Work Phone: [facility] 05-25-2024 09:57-0400 Body mass index (BMI) [Ratio] 51.1 kg/m2 Pastora Ackermank ADMINISTRATIVE PROCESSOR-C Work Phone: [facility] 05-25-2024 09:57-0400 Body weight 130.9 kg Pastora Ackermank ADMINISTRATIVE PROCESSOR-C Work Phone: [facility] 05-25-2024 09:57-0400 Diastolic blood pressure 93 mm[Hg] Pastora Velardepatrick ADMINISTRATIVE PROCESSOR-C Work Phone: [facility] 05-25-2024 09:57-0400 Heart rate 78 /min Pastora Obrientrick ADMINISTRATIVE PROCESSOR-C Work Phone: [facility] 05-25-2024 09:57-0400 Respiratory rate 20 /min Pastora Obrientrick ADMINISTRATIVE PROCESSOR-C Work Phone: [facility] 05-25-2024 09:57-0400 SaO2% (BldA) [Mass fraction] 98 % Pastora Obrientrick ADMINISTRATIVE PROCESSOR-C Work Phone: [facility] 05-25-2024 09:57-0400 Systolic blood pressure 144 mm[Hg] Pastora Obrientrick ADMINISTRATIVE PROCESSOR-C Work Phone: [facility] 05-23-2024 13:38-0400 Body height 157.5 cm Blane Pino DPM Work Phone: [facility] 05-23-2024 13:38-0400 Body mass index (BMI) [Ratio] 53.04 kg/m2 Blane Pino DPM Work Phone: [facility] 05-23-2024 13:38-0400 Body weight 131.54 kg Blane Pino DPM Work Phone: [facility] 04-12-2024 10:47-0500 Body mass index (BMI) [Ratio] 54.5 kg/m2 Alexandra Osorio ADMINISTRATIVE PROCESSOR Work Phone: [facility] 04-12-2024 10:47-0500 Body temperature 96.21 [degF] Alexandra Cruzburg ADMINISTRATIVE PROCESSOR Work Phone: [facility] 04-12-2024 10:47-0500 Body weight 135.17 kg Alexandra Anthonyburg ADMINISTRATIVE PROCESSOR Work Phone: [facility] 04-12-2024 10:47-0500 Diastolic blood pressure 90 mm[Hg] Alexandra Anthonyburg ADMINISTRATIVE PROCESSOR Work Phone: [facility] 04-12-2024 10:47-0500 Heart rate 82 /min Alexandra Hackenburg ADMINISTRATIVE PROCESSOR Work Phone: [facility] 04-12-2024 10:47-0500 SaO2% (BldA) [Mass fraction] 92 % Alexandra Hackenburg ADMINISTRATIVE PROCESSOR Work Phone: [facility] 04-12-2024 10:47-0500 Systolic blood pressure 136 mm[Hg] Alexandra Hackenburg ADMINISTRATIVE PROCESSOR Work Phone: [facility] 03-05-2024 08:53-0500 Body height 157.5 cm Alexandra Hackenburg ADMINISTRATIVE PROCESSOR Work Phone: [facility] 03-05-2024 08:53-0500 Body mass index (BMI) [Ratio] 52.13 kg/m2 Alexandra Hackenburg ADMINISTRATIVE PROCESSOR Work Phone: [facility] 03-05-2024 08:53-0500 Body weight 129.28 kg Alexandra Hackenburg ADMINISTRATIVE PROCESSOR Work Phone: [facility] 03-05-2024 08:53-0500 Diastolic blood pressure 78 mm[Hg] Alexandra Hackenburg ADMINISTRATIVE PROCESSOR Work Phone: [facility] 03-05-2024 08:53-0500 Heart rate 94 /min Alexandra Hackenburg ADMINISTRATIVE PROCESSOR Work Phone: [facility] 03-05-2024 08:53-0500 Respiratory rate 18 /min Alexandra Hackenburg ADMINISTRATIVE PROCESSOR Work Phone: [facility] 03-05-2024 08:53-0500 SaO2% (BldA) [Mass fraction] 94 % Alexandra Hackenburg ADMINISTRATIVE PROCESSOR Work Phone: [facility] 03-05-2024 08:53-0500 Systolic blood pressure 124 mm[Hg] Alexandra Hackenburg ADMINISTRATIVE PROCESSOR Work Phone: [facility] 02-29-2024 16:22-0500 Body height 157.5 cm Alexandra Hackenburg ADMINISTRATIVE PROCESSOR Work Phone: [facility] 02-29-2024 16:22-0500 Body mass index (BMI) [Ratio] 52.49 kg/m2 Alexandra Osorio ADMINISTRATIVE PROCESSOR Work Phone: [facility] 02-29-2024 16:22-0500 Body weight 130.18 kg Alexandra Osorio ADMINISTRATIVE PROCESSOR Work Phone: [facility] 02-29-2024 16:22-0500 Diastolic blood pressure 82 mm[Hg] Alexandra Osorio ADMINISTRATIVE PROCESSOR Work Phone: [facility] 02-29-2024 16:22-0500 Heart rate 78 /min Alexandra Osorio ADMINISTRATIVE PROCESSOR Work Phone: [facility] 02-29-2024 16:22-0500 Respiratory rate 18 /min Alexandra Osorio ADMINISTRATIVE PROCESSOR Work Phone: [facility] 02-29-2024 16:22-0500 SaO2% (BldA) [Mass fraction] 95 % Alexandra Osorio ADMINISTRATIVE PROCESSOR Work Phone: [facility] 02-29-2024 16:22-0500 Systolic blood pressure 130 mm[Hg] Alexandra Osorio ADMINISTRATIVE PROCESSOR Work Phone: [facility] 01-19-2024 11:23-0500 Body height 157.5 cm Pastora Ackermank ADMINISTRATIVE PROCESSOR Work Phone: [facility] 01-19-2024 11:23-0500 Body mass index (BMI) [Ratio] 51.18 kg/m2 Pastora Mejíazpatrick ADMINISTRATIVE PROCESSOR Work Phone: [facility] 01-19-2024 11:23-0500 Body temperature 97.81 [degF] Pastora Kohler ADMINISTRATIVE PROCESSOR Work Phone: [facility] 01-19-2024 11:23-0500 Body weight 126.92 kg Pastora Velardepatrick ADMINISTRATIVE PROCESSOR Work Phone: [facility] 01-19-2024 11:23-0500 Diastolic blood pressure 86 mm[Hg] Pastora Obrientrick ADMINISTRATIVE PROCESSOR Work Phone: [facility] 01-19-2024 11:23-0500 Heart rate 100 /min Pastora Obrientrick ADMINISTRATIVE PROCESSOR Work Phone: [facility] 01-19-2024 11:23-0500 SaO2% (BldA) [Mass fraction] 97 % Pastora Obrientrick ADMINISTRATIVE PROCESSOR Work Phone: [facility] 01-19-2024 11:23-0500 Systolic blood pressure 150 mm[Hg] Pastora Obrientrick ADMINISTRATIVE PROCESSOR Work Phone: [facility] 12-30-2023 09:56-0500 Body mass index (BMI) [Ratio] 50.5 kg/m2 [facility] 12-30-2023 09:56-0500 Diastolic blood pressure 94 mm[Hg] [facility] 12-30-2023 09:56-0500 Heart rate 86 /min [facility] 12-30-2023 09:56-0500 Respiratory rate 18 /min [facility] 12-30-2023 09:56-0500 SaO2% (BldA) [Mass fraction] 100 % [facility] 12-30-2023 09:56-0500 Systolic blood pressure 136 mm[Hg] [facility] 12-30-2023 09:45-0500 Body height 160.02 cm [facility] 12-30-2023 09:45-0500 Body weight 129.35 kg [facility] 09-23-2023 14:28-0400 Body height 160.02 cm [facility] 09-23-2023 14:28-0400 Body mass index (BMI) [Ratio] 48.6 kg/m2 [facility] 09-23-2023 14:28-0400 Body weight 124.51 kg [facility] 09-23-2023 14:28-0400 Diastolic blood pressure 69 mm[Hg] [facility] 09-23-2023 14:28-0400 Heart rate 82 /min [facility] 09-23-2023 14:28-0400 Respiratory rate 20 /min [facility] 09-23-2023 14:28-0400 SaO2% (BldA) [Mass fraction] 95 % [facility] 09-23-2023 14:28-0400 Systolic blood pressure 104 mm[Hg] [facility] 06-30-2023 14:45-0400 Diastolic blood pressure 87 mm[Hg] Piotr Logan MD Work Phone: [employer] 06-30-2023 14:45-0400 Heart rate 78 /min Piotr Logan MD Work Phone: [employer] 06-30-2023 14:45-0400 Respiratory rate 16 /min Piotr Logan MD Work Phone: [facility] [employer] 06-30-2023 14:45-0400 SaO2% (BldA) [Mass fraction] 97 % Piotr Logan MD Work Phone: [employer] 06-30-2023 14:45-0400 Systolic blood pressure 133 mm[Hg] Piotr Logan MD Work Phone: [employer] 06-30-2023 12:35-0400 Body temperature 96.21 [degF] Piotr Logan MD Work Phone: [employer] 06-30-2023 11:05-0400 Body height 157.5 cm Piotr Logan MD Work Phone: [employer] 06-30-2023 11:05-0400 Body mass index (BMI) [Ratio] 52.61 kg/m2 Piotr Logan MD Work Phone: [employer] 06-30-2023 11:05-0400 Body weight 130.5 kg Piotr Logan MD Work Phone: [employer] 06-03-2023 10:04-0400 Body height 160 cm Edwin Moreno MD Work Phone: [facility] 06-03-2023 10:04-0400 Body mass index (BMI) [Ratio] 50.38 kg/m2 Edwin Moreno MD Work Phone: [facility] 06-03-2023 10:04-0400 Body temperature 97.59 [degF] Edwin Moreno MD Work Phone: [facility] 06-03-2023 10:04-0400 Body weight 129 kg Edwin Moreno MD Work Phone: [facility] 06-03-2023 10:04-0400 Diastolic blood pressure 98 mm[Hg] Edwin Moreno MD Work Phone: [facility] 06-03-2023 10:04-0400 Heart rate 90 /min Edwin Moreno MD Work Phone: [facility] 06-03-2023 10:04-0400 SaO2% (BldA) [Mass fraction] 97 % Edwin Moreno MD Work Phone: [facility] 06-03-2023 10:04-0400 Systolic blood pressure 154 mm[Hg] Edwin Moreno MD Work Phone: [facility] 05-11-2023 11:54-0400 Body height 160.02 cm [facility] 05-11-2023 11:54-0400 Body mass index (BMI) [Ratio] 51.5 kg/m2 [facility] 05-11-2023 11:54-0400 Body weight 132.05 kg [facility] 05-11-2023 11:54-0400 Diastolic blood pressure 83 mm[Hg] [facility] 05-11-2023 11:54-0400 Heart rate 74 /min [facility] 05-11-2023 11:54-0400 Respiratory rate 20 /min [facility] 05-11-2023 11:54-0400 SaO2% (BldA) [Mass fraction] 98 % [facility] 05-11-2023 11:54-0400 Systolic blood pressure 139 mm[Hg] [facility] 04-07-2023 09:09-0500 Body height 160.02 cm DO Kalie Rumschlag Work Phone: [facility] 04-07-2023 09:09-0500 Body mass index (BMI) [Ratio] 52.6 kg/m2 DO Kalie Rumschlag Work Phone: [facility] 04-07-2023 09:09-0500 Body weight 134.83 kg DO Kalie Rumschlag Work Phone: [facility] 04-07-2023 09:09-0500 Diastolic blood pressure 82 mm[Hg] DO Kalie Rumschlag Work Phone: [facility] 04-07-2023 09:09-0500 Heart rate 80 /min DO Kalie Rumschlag Work Phone: [facility] 04-07-2023 09:09-0500 Respiratory rate 20 /min DO Kalie Rumschlag Work Phone: [facility] 04-07-2023 09:09-0500 SaO2% (BldA) [Mass fraction] 93 % DO Kalie Rumschlag Work Phone: [facility] 04-07-2023 09:09-0500 Systolic blood pressure 130 mm[Hg] DO Kalie Rumschlag Work Phone: [facility] 02-03-2023 08:45-0500 Body height 160.02 cm Lili Scally Other [facility] 02-03-2023 08:45-0500 Body mass index (BMI) [Ratio] 52.61 kg/m2 Lili Scally Other [employer] Other 02-03-2023 08:45-0500 Body weight 134.72 kg Lili Scally Other [employer] Other 02-03-2023 08:45-0500 Body weight 134.71 kg DO Kalie Kasper Work Phone: [facility] 02-03-2023 08:45-0500 Diastolic blood pressure Lili Scally Other [employer] Other 02-03-2023 08:45-0500 Respiratory rate 20 /min Lili Scally Other [employer] Other 02-03-2023 08:45-0500 SaO2% (BldA) [Mass fraction] 94 % Lili Scally Other [employer] Other 02-03-2023 08:45-0500 Systolic blood pressure 144 mm[Hg] Liil Scally Other [employer] Other 11-26-2022 09:45-0400 Body height 160.02 cm Lili Scally Other [employer] Other 11-26-2022 09:45-0400 Body mass index (BMI) [Ratio] 51.37 kg/m2 Lili Scally Other [employer] Other 11-26-2022 09:45-0400 Body weight 131.54 kg Lili Scally Other [employer] Other 11-26-2022 09:45-0400 Diastolic blood pressure Lili Scally Other [employer] Other 11-26-2022 09:45-0400 Respiratory rate 20 /min Lili Scally Other [employer] Other 11-26-2022 09:45-0400 SaO2% (BldA) [Mass fraction] 96 % Lili Burgos Other [employer] Other 11-26-2022 09:45-0400 Systolic blood pressure 124 mm[Hg] Lili Burgos Other [employer] Other 11-25-2022 09:20-0400 Body height 160.02 cm Stoney Yue Other [employer] Other 11-25-2022 09:20-0400 Body mass index (BMI) [Ratio] 52.07 kg/m2 Stoney Turner Other [employer] Other 11-25-2022 09:20-0400 Body weight 133.36 kg Stoney Turner Other [employer] Other 10-30-2022 11:18-0400 Diastolic blood pressure 81 mm[Hg] DO Judith Amanda Work Phone: [facility] 10-30-2022 11:18-0400 Heart rate 94 /min DO Judith Amanda Work Phone: [facility] 10-30-2022 11:18-0400 Respiratory rate 18 /min DO Judith Amanda Work Phone: [facility] 10-30-2022 11:18-0400 SaO2% (BldA) [Mass fraction] 96 % DO Judith Amanda Work Phone: [facility] 10-30-2022 11:18-0400 Systolic blood pressure 159 mm[Hg] DO Judith Amanda Work Phone: [facility] 10-30-2022 09:52-0400 Body height 160.02 cm DO Judith Amanda Work Phone: [facility] 10-30-2022 09:52-0400 Body weight 126.55 kg DO Judith Patel Work Phone: [facility] 10-09-2022 10:40-0400 Body height 160.02 cm Martine Tobias Other [employer] Other 10-09-2022 10:40-0400 Body mass index (BMI) [Ratio] 52.07 kg/m2 [employer]ine[employer]braResto Other [employer] Other 10-09-2022 10:40-0400 Body weight 133.36 kg Martine Tobias Other [employer] Other 10-09-2022 10:40-0400 Diastolic blood pressure 88 mm[Hg] [employer] Other [employer] Other 10-09-2022 10:40-0400 Systolic blood pressure 154 mm[Hg] [employer] Other [employer] Other 10-03-2022 09:15-0400 Body height 160.02 cm Lili Scally Other [employer] Other 10-03-2022 09:15-0400 Body mass index (BMI) [Ratio] 52.09 kg/m2 Lili Scally Other [employer] Other 10-03-2022 09:15-0400 Body weight 133.4 kg Lili Scally Other [employer] Other 10-03-2022 09:15-0400 Diastolic blood pressure 88 mm[Hg] Lili Scally Other [employer] Other 10-03-2022 09:15-0400 Respiratory rate 20 /min Lili Scally Other [employer] Other 10-03-2022 09:15-0400 SaO2% (BldA) [Mass fraction] 65 % Lili Scally Other [employer] Other 10-03-2022 09:15-0400 Systolic blood pressure 143 mm[Hg] Lili Scally Other [employer] Other 09-19-2022 13:49-0400 Diastolic blood pressure 109 mm[Hg] DO Kalie Rumschlag Work Phone: [facility] 09-19-2022 13:49-0400 Heart rate 94 /min DO Kalie Rumschlag Work Phone: [facility] 09-19-2022 13:49-0400 Respiratory rate 20 /min DO Kalie Rumschlag Work Phone: [facility] 09-19-2022 13:49-0400 SaO2% (BldA) [Mass fraction] 96 % DO Kalie Rumschlag Work Phone: [facility] 09-19-2022 13:49-0400 Systolic blood pressure 209 mm[Hg] DO Kalie Rumschlag Work Phone: [facility] 09-19-2022 13:42-0400 Body height 162.56 cm DO Kalie Rumschlag Work Phone: [facility] 09-19-2022 13:42-0400 Body weight 124.73 kg DO Kalie Rumschlag Work Phone: [facility] 08-12-2022 09:40-0400 Body height 160.02 cm Martine Tobias Other [employer] Other 08-12-2022 09:40-0400 Body mass index (BMI) [Ratio] 50.62 kg/m2 Martine Tobias Other [employer] Other 08-12-2022 09:40-0400 Body weight 129.64 kg Martine Tobias Other [employer] Other 08-12-2022 09:40-0400 Diastolic blood pressure 86 mm[Hg] Martine Tobias Other [employer] Other 08-12-2022 09:40-0400 Systolic blood pressure 150 mm[Hg] Martine Tobias Other [employer] Other 08-01-2022 09:15-0400 Body height 160.02 cm Lili Scally Other [employer] Other 08-01-2022 09:15-0400 Body mass index (BMI) [Ratio] 50.62 kg/m2 Lili Scally Other [employer] Other 08-01-2022 09:15-0400 Body weight 129.64 kg Lili Scally Other [employer] Other 08-01-2022 09:15-0400 Diastolic blood pressure 84 mm[Hg] Lili Scally Other [employer] Other 08-01-2022 09:15-0400 Respiratory rate 18 /min Lili Scally Other [employer] Other 08-01-2022 09:15-0400 SaO2% (BldA) [Mass fraction] 95 % Lili Scally Other [employer] Other 08-01-2022 09:15-0400 Systolic blood pressure 130 mm[Hg] Lili Scally Other [employer] Other 06-06-2022 10:45-0400 Body height 160.02 cm Lili Scally Other [employer] Other 06-06-2022 10:45-0400 Body mass index (BMI) [Ratio] 50.43 kg/m2 Lili Scally Other [employer] Other 06-06-2022 10:45-0400 Body weight 129.14 kg Lili Scally Other [employer] Other 06-06-2022 10:45-0400 Diastolic blood pressure 76 mm[Hg] Lili Scally Other [employer] Other 06-06-2022 10:45-0400 Respiratory rate 18 /min Lili Scally Other [employer] Other 06-06-2022 10:45-0400 SaO2% (BldA) [Mass fraction] 96 % Lili Scally Other [employer] Other 06-06-2022 10:45-0400 Systolic blood pressure 131 mm[Hg] Lili Scally Other [employer] Other 03-06-2022 14:45-0500 Body height 160.02 cm Lili Scally Other [employer] Other 03-06-2022 14:45-0500 Body mass index (BMI) [Ratio] 46.81 kg/m2 Lili Scally Other [employer] Other 03-06-2022 14:45-0500 Body weight 119.89 kg Lili Scally Other [employer] Other 03-06-2022 14:45-0500 Diastolic blood pressure 72 mm[Hg] Lili Scally Other [employer] Other 03-06-2022 14:45-0500 Respiratory rate 18 /min Lili Scally Other [employer] Other 03-06-2022 14:45-0500 SaO2% (BldA) [Mass fraction] 96 % Lili Scally Other [employer] Other 03-06-2022 14:45-0500 Systolic blood pressure 112 mm[Hg] Lili Scally Other [employer] Other 10-28-2021 11:15-0400 Body height 160.02 cm Lili Scally Other [employer] Other 10-28-2021 11:15-0400 Body mass index (BMI) [Ratio] 45.49 kg/m2 Lili Scally Other [employer] Other 10-28-2021 11:15-0400 Body weight 116.48 kg Lili Scally Other [employer] Other 10-28-2021 11:15-0400 Diastolic blood pressure 83 mm[Hg] Lili Scally Other [employer] Other 10-28-2021 11:15-0400 Respiratory rate 18 /min Lili Scally Other [employer] Other 10-28-2021 11:15-0400 SaO2% (BldA) [Mass fraction] 97 % Lili Scally Other [employer] Other 10-28-2021 11:15-0400 Systolic blood pressure 133 mm[Hg] Lili Scally Other [employer] Other 07-04-2021 09:15-0400 Body height 160.02 cm Lili Scally Other [employer] Other 07-04-2021 09:15-0400 Body mass index (BMI) [Ratio] 45.79 kg/m2 Lili Scally Other [employer] Other 07-04-2021 09:15-0400 Body weight 117.26 kg Lili Scally Other [employer] Other 07-04-2021 09:15-0400 Diastolic blood pressure 83 mm[Hg] Lili Scally Other [employer] Other 07-04-2021 09:15-0400 Respiratory rate 18 /min Lili Scally Other [employer] Other 07-04-2021 09:15-0400 SaO2% (BldA) [Mass fraction] 96 % Lili Scally Other [employer] Other 07-04-2021 09:15-0400 Systolic blood pressure 125 mm[Hg] Lili Scally Other [employer] Other 11-21-2020 10:30-0400 Body height 160.02 cm Clifford Garciaian Kang Other [employer] Other 11-21-2020 10:30-0400 Body mass index (BMI) [Ratio] 46.97 kg/m2 Clifford Garciaian Kang Other [employer] Other 11-21-2020 10:30-0400 Body weight 120.29 kg Clifford Garciaian Kang Other [employer] Other 11-21-2020 10:30-0400 Diastolic blood pressure 76 mm[Hg] Cliffordronnie Munoz Jr. Other [employer] Other 11-21-2020 10:30-0400 Respiratory rate 18 /min Clifford Tammy Kang Other [employer] Other 11-21-2020 10:30-0400 SaO2% (BldA) [Mass fraction] 97 % Clifford Tammy Kang Other [employer] Other 11-21-2020 10:30-0400 Systolic blood pressure 123 mm[Hg] Clifford Garciaian Kang Other [employer] Other Encounters Encounter Date Encounter Type Care Provider Facility Start: 09-23-2024 End: 09-23-2024 Office outpatient visit 15 minutes Lalitha Trujillo ADMINISTRATIVE PROCESSOR Work Phone: [facility] Comment on above: Acute left-sided low back pain with left-sided sciatica (Primary Dx) Start: 09-23-2024 End: 09-23-2024 ambulatory LALITHA TRUJILLO Not Available Start: 09-23-2024 End: 09-23-2024 Bamboo flowsheet Lalitha Trujillo ADMINISTRATIVE PROCESSOR Work Phone: [facility] Start: 09-23-2024 End: 09-23-2024 Bamboo flowsheet Lalitha Hernandezvelasquezcesia ADMINISTRATIVE PROCESSOR Work Phone: [facility] Start: 09-14-2024 End: 09-14-2024 ambulatory LALITHA TRUJILLO Not Available Start: 09-14-2024 End: 09-14-2024 Bamboo flowsheet Lalitha Hernandezvelasquezcesia ADMINISTRATIVE PROCESSOR Work Phone: [facility] Start: 09-14-2024 End: 09-14-2024 Bamboo flowsheet Lalitha Hernandezvelasquezcesia ADMINISTRATIVE PROCESSOR Work Phone: [facility] Start: 09-14-2024 End: 09-14-2024 Office outpatient visit 15 minutes Lalitha Hernandezvelasquezcesia ADMINISTRATIVE PROCESSOR Work Phone: [facility] Comment on above: Left leg cellulitis (Primary Dx) Start: 09-07-2024 End: 09-07-2024 Emergency department patient visit CANDI VYAS [facility] Start: 08-30-2024 End: 08-30-2024 Bamboo flowsheet Lalitha Hernandezvelasquezcesia ADMINISTRATIVE PROCESSOR Work Phone: [facility] Start: 08-30-2024 End: 08-30-2024 Bamboo flowsheet Lalitha Trujillo ADMINISTRATIVE PROCESSOR Work Phone: [facility] Start: 08-30-2024 End: 08-30-2024 ambulatory LALITHA TRUJILLO Not Available Start: 08-30-2024 End: 08-30-2024 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 procedure Lalitha Hernandezvelasquezcesia ADMINISTRATIVE PROCESSOR Work Phone: [facility] Comment on above: Encounter for wellne ss examination (Primary Dx); Primary hypertension ; Type 2 diabetes mellitus with hyperglycemia, with long-term current use of insulin (HCC); History of uterine cancer; Morbid obesity (CMS-HCC); Mixed hyperlipidemia ; Encounter for screening mammogram for malignant neoplasm of breast; Encounter for immunization; Left hip pain; Recurrent major depressive disorder, in partial remission ; 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); Chronic kidney disease, stage 2 (mild); Chronic pain disorder Start: 08-30-2024 End: 08-30-2024 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 status Lalitha Trujillo ADMINISTRATIVE PROCESSOR Work Phone: [facility] Work Phone: Start: 08-24-2024 End: 08-24-2024 Bamboo flowsheet Lauren HILL Work Phone: [facility] Start: 08-24-2024 End: 08-24-2024 Bamboo flowsheet Lauren HILL Work Phone: [facility] Start: 08-24-2024 End: 08-24-2024 Postop follow up visit related to original px Lauren HILL Work Phone: [facility] Comment on above: S/P arthroscopy of r ight shoulder (Primary Dx) Start: 08-24-2024 End: 08-24-2024 ambulatory LAUREN TORRES Not Available Start: 08-02-2024 End: 08-02-2024 Bamboo flowsheet Pastora Kohler ADMINISTRATIVE PROCESSOR Work Phone: [facility] Start: 08-02-2024 End: 08-02-2024 Bamboo flowsheet Pastora Kohler ADMINISTRATIVE PROCESSOR Work Phone: [facility] Start: 08-02-2024 End: 08-02-2024 Office outpatient visit 25 minutes Pastora Kohler ADMINISTRATIVE PROCESSOR Work Phone: [facility] Comment on above: Acute pain of right shoulder (Primary Dx); Acute pain of right knee; Primary hypertension Start: 08-02-2024 End: 08-02-2024 ambulatory PASTORA KOHLER Not Available Start: 08-01-2024 End: 08-02-2024 Telephone encounter Lauren HILL Work Phone: [facility] Start: 07-20-2024 End: 07-20-2024 Bamboo flowsheet Lauren HILL Work Phone: [facility] Start: 07-20-2024 End: 07-20-2024 Bamboo flowsheet Lauren Torres PA Work Phone: [facility] Start: 07-20-2024 End: 07-20-2024 Postop follow up visit related to original px Lauren Merle Torres PA Work Phone: [facility] Comment on above: S/P arthroscopy of r ight shoulder (Primary Dx) Start: 07-20-2024 End: 07-20-2024 ambulatory ALUREN TORRES Not Available Start: 07-01-2024 End: 07-01-2024 Bamboo flowsheet Lauren Torres PA Work Phone: [facility] Start: 07-01-2024 End: 07-01-2024 Bamboo flowsheet Lauren Torres PA Work Phone: [facility] Start: 07-01-2024 End: 07-01-2024 Postop follow up visit related to original px Lauren Torres PA Work Phone: [facility] Comment on above: S/P arthroscopy of r ight shoulder (Primary Dx) Start: 07-01-2024 End: 07-01-2024 ambulatory LAUREN TORRES Not Available Start: 06-21-2024 End: 06-21-2024 Bamboo flowsheet Lauren Torres PA Work Phone: [facility] Start: 06-21-2024 End: 06-21-2024 Bamboo flowsheet Lauren Torres PA Work Phone: [facility] Start: 06-21-2024 End: 06-21-2024 ambulatory LAUREN TORRES Not Available Start: 06-21-2024 End: 06-21-2024 Postop follow up visit related to original px Lauren Torres PA Work Phone: [facility] Comment on above: S/P arthroscopy of r ight shoulder (Primary Dx) Start: 06-17-2024 End: 06-17-2024 ambulatory [facility] Facility:[facility] Start: 06-16-2024 End: 06-17-2024 Refill Pastora Kohler ADMINISTRATIVE PROCESSOR Work Phone: [facility] Comment on [...] Preoperative state Jennifer Cabrera MD Work Phone: [facility] Start: 06-14-2024 End: 06-14-2024 ambulatory JENNIFER CABRERA Not Available Start: 06-10-2024 End: 06-10-2024 Bamboo flowsheet Lalitha Trujillo ADMINISTRATIVE PROCESSOR Work Phone: [facility] Start: 06-10-2024 End: 06-10-2024 Bamboo flowsheet Lalitha Trujillo ADMINISTRATIVE PROCESSOR Work Phone: [facility] Start: 06-10-2024 End: 06-10-2024 Office outpatient visit 15 minutes Lalitha Trujillo NP Work Phone: [facility] Comment on above: Acute laryngitis (Pr imary Dx) Start: 06-10-2024 End: 06-10-2024 ambulatory LALITHA KAMPFER Not Available Start: 06-08-2024 End: 06-08-2024 ambulatory AKANKSHA SANFORD [facility] Start: 06-01-2024 End: 06-01-2024 ambulatory [facility] Facility:[facility] Start: 05-31-2024 End: 05-31-2024 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 procedure Lauren Torres PA Work Phone: [facility] Comment on above: Pre-op examination ( Primary Dx) Start: 05-31-2024 End: 05-31-2024 Preprocedural examination done Lauren Torres PA Work Phone: [facility] Work Phone: Start: 05-31-2024 End: 05-31-2024 ambulatory LAUREN TORRES Not Available Start: 05-31-2024 End: 05-31-2024 Bamboo flowsheet Lauren Torres PA Work Phone: [facility] Start: 05-31-2024 End: 05-31-2024 Bamboo flowsheet Lauren Torres PA Work Phone: [facility] Start: 05-25-2024 End: 05-25-2024 ambulatory Pastora Ackermank ADMINISTRATIVE PROCESSOR-C Work Phone: [facility] Work Phone: Start: 05-25-2024 End: 05-25-2024 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 procedure Pastora Ackermank ADMINISTRATIVE PROCESSOR-C Work Phone: [facility] Work Phone: Start: 05-25-2024 End: 05-25-2024 ambulatory Pastora Ackermank ADMINISTRATIVE PROCESSOR-C Work Phone: [facility] Work Phone: Start: 05-25-2024 End: 05-25-2024 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 procedure Pastora Ackermank ADMINISTRATIVE PROCESSOR-C Work Phone: [facility] Work Phone: Start: 05-23-2024 End: 05-23-2024 Bamboo flowsheet Blane Pino DPM Work Phone: [facility] Start: 05-23-2024 End: 05-23-2024 Bamboo flowsheet Blane Pino DPM Work Phone: [facility] Start: 05-23-2024 End: 05-23-2024 Office outpatient visit 15 minutes Blane Pino DPM Work Phone: [facility] Comment on above: Bursitis of left isaac t (Primary Dx); Acquired keratoderma; Pain in left foot; Difficulty walking Start: 05-23-2024 End: 05-23-2024 ambulatory BLANE PINO Not Available Start: 04-26-2024 End: 04-26-2024 Office outpatient visit 40 minutes Jr. Rica Rodriguez DO Work Phone: [facility] Comment on above: Acute pain of right shoulder (Primary Dx); Arthritis of right acromioclavicular joint; Biceps tendinitis, right; Partial nontraumatic tear of rotator cuff, right Start: 04-26-2024 End: 04-26-2024 ambulatory RICA KANG Not Available Start: 04-18-2024 End: 04-18-2024 Telephone encounter Lalitha Trujillo ADMINISTRATIVE PROCESSOR Work Phone: [facility] Start: 04-12-2024 End: 04-12-2024 Bamboo flowsheet Alexandra Osorio ADMINISTRATIVE PROCESSOR Work Phone: [facility] Start: 04-12-2024 End: 04-12-2024 Bamboo flowsheet Alexandra Osorio ADMINISTRATIVE PROCESSOR Work Phone: [facility] Start: 04-12-2024 End: 04-12-2024 Office outpatient visit 25 minutes Alexandra Osorio ADMINISTRATIVE PROCESSOR Work Phone: [facility] Comment on above: Type 2 diabetes livier itus with diabetic mononeuropathy, with long-term current use of insulin ([facility]) (Primary Dx); SOB (shortness of breath); Wheezing; Poorly-controlled hypertension (CMS/HCC) Start: 04-12-2024 End: 04-12-2024 Orders Only Alexandra Osorio ADMINISTRATIVE PROCESSOR Work Phone: [facility] Comment on above: Acute non-recurrent pansinusitis (Primary Dx) Start: 03-23-2024 End: 03-23-2024 Bamboo flowsheet Sean Merle Noman PT Work Phone: [facility] Start: 03-23-2024 End: 03-23-2024 Bamboo flowsheet Sean Merle Noman PT Work Phone: [facility] Start: 03-23-2024 End: 03-23-2024 ambulatory Sean Tineo PT Work Phone: [facility] Comment on above: Biceps tendinitis, r ight (Primary Dx); Impingement of right shoulder Start: 03-16-2024 End: 03-16-2024 Bamboo flowsheet Jr. Rica Rodriguez DO Work Phone: [facility] Start: 03-16-2024 End: 03-16-2024 Bamboo flowsheet Jr. Rica Nair Stepdamien DO Work Phone: [facility] Start: 03-16-2024 End: 03-16-2024 Office outpatient visit 25 minutes Jr. Rica Rodriguez DO Work Phone: [facility] Comment on above: Acute pain of right shoulder (Primary Dx); Arthritis of right acromioclavicular joint; Biceps tendinitis, right Start: 03-16-2024 End: 03-16-2024 ambulatory RICA KANG Not Available Start: 2024 End: 2024 Refill Judith Patel DO Work Phone: [facility] Comment on above: Mixed hyperlipidemia (CMS/HCC) Start: 03-10-2024 End: 03-10-2024 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 procedure Pastora Kohler ADMINISTRATIVE PROCESSOR-C Work Phone: [facility] [place] Work Phone: Start: 03-10-2024 End: 03-10-2024 ambulatory Pastora Kohler ADMINISTRATIVE PROCESSOR-C Work Phone: [facility] Work Phone: Start: 03-05-2024 End: 03-05-2024 Bamboo flowsheet Alexandra Des Osorio ADMINISTRATIVE PROCESSOR Work Phone: [facility] Start: 03-05-2024 End: 03-05-2024 Bamboo flowsheet Alexandra A Hagallitoenburg ADMINISTRATIVE PROCESSOR Work Phone: [facility] Start: 03-05-2024 End: 03-05-2024 Telephone encounter Alexandra Osorio ADMINISTRATIVE PROCESSOR Work Phone: [facility] Start: 03-05-2024 End: 03-05-2024 Office outpatient visit 15 minutes Alexandra Des Osorio ADMINISTRATIVE PROCESSOR Work Phone: [facility] Comment on above: Left leg cellulitis (Primary Dx); Type 2 diabetes mellitus with diabetic mononeuropathy, with long-term current use of insulin ([facility]); Skin rash; Opioid dependence, uncomplicated ([facility]) Start: 03-05-2024 End: 03-05-2024 ambulatory ALEXANDRA Des OSORIO Not Available Start: 03-02-2024 End: 03-02-2024 Telephone encounter Lauren Torres PA Work Phone: [facility] Comment on above: MRI Concerns Start: 03-01-2024 Non-patient / Non-visit Sid Kohler ADMINISTRATIVE PROCESSOR-C [facility] Phone[facility] Work Phone: Start: 02-29-2024 End: 02-29-2024 Office outpatient visit 25 minutes Alexandrakassie Osorio ADMINISTRATIVE PROCESSOR Work Phone: [facility] Comment on above: Type 2 diabetes livier itus with diabetic mononeuropathy, with long-term current use of insulin ([facility]) (Primary Dx); Left leg cellulitis; Morbid (severe) obesity due to excess calories ([facility]); Body mass index (BMI) 50.0-59.9, adult ([facility] [facility]); Type 2 diabetes mellitus with other skin complications ([facility]); Bipolar disorder, unspecified ([facility]) Start: 02-29-2024 End: 02-29-2024 ambulatory ALEXANDRA OSORIO Not Available Start: 02-29-2024 End: 02-29-2024 Bamboo flowsheet Alexandra Osorio ADMINISTRATIVE PROCESSOR Work Phone: [facility] Start: 02-29-2024 End: 02-29-2024 Bamboo flowsheet Alexandra Osorio ADMINISTRATIVE PROCESSOR Work Phone: [facility] Start: 01-26-2024 End: 01-26-2024 Bamboo flowsheet Lauren Torres PA Work Phone: [facility] Start: 01-26-2024 End: 01-26-2024 Bamboo flowsheet Lauren Torres PA Work Phone: [facility] Start: 01-26-2024 End: 01-26-2024 Office outpatient visit 15 minutes Lauren HILL Work Phone: [facility] Comment on above: Acute pain of right shoulder (Primary Dx); Arthritis of right acromioclavicular joint; Internal derangement of right shoulder; History of claustrophobia Start: 01-26-2024 End: 01-26-2024 ambulatory LAUREN TORRES Not Available Start: 01-19-2024 End: 01-19-2024 Bamboo flowsheet Pastora Kohler ADMINISTRATIVE PROCESSOR Work Phone: [facility] Start: 01-19-2024 End: 01-19-2024 Bamboo flowsheet Pastora Kohler ADMINISTRATIVE PROCESSOR Work Phone: [facility] Start: 01-19-2024 End: 01-19-2024 Office outpatient visit 15 minutes Pastora Kohler ADMINISTRATIVE PROCESSOR Work Phone: [facility] Comment on above: Bronchitis (Primary Dx); 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); Wheezing Start: 01-19-2024 End: 01-19-2024 ambulatory PASTORA KOHLER Not Available Start: 01-11-2024 End: 01-13-2024 Refill Judith Patel DO Work Phone: [facility] Comment on above: Primary hypertension (CMS/HCC) Start: 01-05-2024 End: 01-05-2024 ambulatory [facility] Start: 12-30-2023 End: 12-30-2023 ambulatory [facility] Work Phone: Start: 12-30-2023 End: 12-30-2023 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 procedure [facility] Work Phone: Start: 12-29-2023 End: 12-29-2023 Bamboo [...] Start: 12-24-2023 Non-patient / Non-visit [facility] Work Phone: Start: 12-11-2023 End: 12-11-2023 Bamboo flowsheet Lauren Torres PA Work Phone: [facility] Start: 12-11-2023 End: 12-11-2023 Bamboo flowsheet Lauren Torres PA Work Phone: [facility] Start: 12-11-2023 End: 12-11-2023 Office outpatient visit 15 minutes Lauren HILL Work Phone: [facility] Comment on above: Acute pain of left k nee (Primary Dx); History of left knee replacement Start: 12-11-2023 End: 12-11-2023 ambulatory LAUREN TORRES Not Available Start: 12-06-2023 End: 12-07-2023 Refill Judith G Amanda DO Work Phone: [facility] Comment on above: Primary hypertension (CMS/HCC) Start: 11-20-2023 End: 11-20-2023 Bamboo flowsheet Lauren Torres PA Work Phone: [facility] Start: 11-20-2023 End: 11-20-2023 Bamboo flowsheet Lauren Torres PA Work Phone: [facility] Start: 11-20-2023 End: 11-20-2023 Office outpatient visit 25 minutes Lauren HILL Work Phone: [facility] Comment on above: Acute pain of left k nee (Primary Dx); History of left knee replacement; Left hip pain Start: 11-20-2023 End: 11-20-2023 ambulatory LARUEN TORRES Not Available Start: 09-23-2023 End: 09-23-2023 ambulatory [facility] Work Phone: Start: 09-23-2023 End: 09-23-2023 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 procedure [facility] Work Phone: Start: 08-04-2023 End: 08-04-2023 ambulatory PASTORA KOHLER [facility] Start: 07-28-2023 End: 07-29-2023 ambulatory [facility] Start: 07-16-2023 End: 07-20-2023 ambulatory [facility] Start: 07-16-2023 Encounter for other preprocedural examination [facility] Start: 06-30-2023 End: 06-30-2023 ambulatory [facility] Start: 06-30-2023 End: 06-30-2023 Subsequent hospital visit by physician Piotr Logan MD Work Phone: [facility] Comment on above: Abnormal stress test Start: 06-29-2023 End: 06-30-2023 ambulatory [facility] Start: 06-29-2023 Non-patient / Non-visit [facility] Work Phone: Start: 06-23-2023 End: 06-25-2023 [facility] Start: 06-23-2023 Encounter for preprocedural cardiovascular examination [facility] Start: 06-18-2023 End: 06-20-2023 ambulatory [facility] Start: 06-15-2023 End: 06-15-2023 ambulatory [facility] Start: 06-04-2023 End: 06-04-2023 Telephone encounter Edwin Moreno MD Work Phone: [facility] Comment on above: Procedure (Out of ne twork) Start: 06-03-2023 End: 06-03-2023 ambulatory EDWIN MORENO [facility] Start: 06-03-2023 End: 06-03-2023 Office outpatient new 60 minutes Edwin Moreno MD Work Phone: [facility] Comment on above: Endometrial cancer ( [facility]) (Primary Dx); BMI 50.0-59.9, adult ([facility]) Start: 05-22-2023 End: 05-22-2023 ambulatory Shawn Webb Work Phone: [facility] Work Phone: Start: 05-22-2023 End: 05-22-2023 Departed Referred Shawn Webb Work Phone: [facility] Start: 05-11-2023 End: 05-11-2023 ambulatory [facility] Work Phone: Start: 05-11-2023 End: 05-11-2023 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 procedure [facility] Work Phone: Start: 04-22-2023 Non-patient / Non-visit [facility] [employer] Work Phone: Start: 04-21-2023 End: 04-21-2023 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 procedure [facility] Work Phone: Start: 04-07-2023 End: 04-07-2023 ambulatory DO Kalie Rumschlag Work Phone: [facility] Work Phone: Start: 04-07-2023 End: 04-07-2023 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 procedure DO Kalie Rumschlag Work Phone: [facility] Work Phone: Start: 03-04-2023 End: 03-04-2023 ambulatory Lili Burgos Other [employer] Other Start: 03-04-2023 Telephone encounter Lili [facility] Start: 02-03-2023 (DM) Diabetes Lili quach [facility] Start: 02-03-2023 End: 02-03-2023 ambulatory DO Kalie Rumschlag Work Phone: [employer] Other Start: 02-03-2023 End: 02-03-2023 Discharged Recurring DO Kalie Rumschlag Work Phone: [facility] Work Phone: Start: 02-03-2023 End: 02-03-2023 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 procedure DO Kalie Rumschlag Work Phone: [facility] Work Phone: Start: 01-26-2023 End: 01-26-2023 ambulatory Lili Scally Other [employer] Other Start: 01-26-2023 Telephone encounter Lilihebert Burgos Ace t[facility] Start: 01-02-2023 End: 01-02-2023 ambulatory Lili Airamly Other [employer] Other Start: 01-02-2023 Telephone encounter Lili Aubrey F [facility] Start: 11-26-2022 (DM) Diabetes Lili Sequeira [facility] Start: 11-26-2022 End: 11-26-2022 ambulatory Lili Scally Other [employer] Other Start: 11-25-2022 End: 11-25-2022 ambulatory Stoney Turner Other [employer] Other Start: 11-25-2022 Office outpatient ne w 30 minutes Stoney Turner [facility] Start: 11-12-2022 End: 11-12-2022 ambulatory Lili Scally Other [employer] Other Start: 11-12-2022 Telephone encounter Lilihebert daltons [facility] Start: 10-30-2022 End: 10-30-2022 Admission to same day surgery center DO Judith Patel Work Phone: [facility] [place] Work Phone: Start: 10-30-2022 End: 10-30-2022 ambulatory DO Judith G Amanda Work Phone: [facility] Work Phone: Start: 10-09-2022 End: 10-09-2022 ambulatory Martine Tobias Other [facility] [employer] Other Start: 10-09-2022 Office outpatient vi sit 25 minutes Martine Tobias [facility] Start: 10-07-2022 End: 10-07-2022 ambulatory DO Judith G Amanda Work Phone: [facility] Work Phone: Start: 10-07-2022 End: 10-07-2022 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 procedure DO Judith Amanda Work Phone: [facility] Work Phone: Start: 10-03-2022 (DM) Diabetes Lili quach [facility] Start: 10-03-2022 End: 10-03-2022 ambulatory Lili Burgos Other [facility] [employer] Other Start: 10-03-2022 Registered Recurring DO Judith Amanda Work Phone: [facility] Work Phone: Start: 09-26-2022 End: 09-26-2022 ambulatory Lili Aubrey Other [facility] [employer] Other Start: 09-26-2022 Telephone encounter Lili matthew [facility] Start: 09-19-2022 End: 09-19-2022 ambulatory DO Kalie Rumschlag Work Phone: [facility] Work Phone: Start: 09-19-2022 End: 09-19-2022 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 procedure DO Kalie Rumschlag Work Phone: [facility] [place] Work Phone: Start: 08-18-2022 End: 08-18-2022 ambulatory DO Kalie Rumschlag Work Phone: [facility] Work Phone: Start: 08-18-2022 End: 08-18-2022 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 procedure DO Kalie Rumschlag Work Phone: [facility] [place] Work Phone: Start: 08-12-2022 End: 08-12-2022 ambulatory Martine Tobias Other [employer] Other Start: 08-12-2022 Office outpatient ne w 45 minutes Martine Tobias [facility] Start: 08-12-2022 Telephone encounter Lili Burgos [facility] Start: 08-05-2022 End: 08-05-2022 ambulatory Lililillian Burgos Other [employer] Other Start: 08-05-2022 Telephone encounter Lililillian Burgos [place] [facility] Start: 08-01-2022 (DM) Diabetes Lili Sequeira [facility] Start: 08-01-2022 End: 08-01-2022 ambulatory Lili Aubrey Other [employer] Other Start: 08-01-2022 Registered Recurring DO Kalie Rumschlag Work Phone: [facility] Work Phone: Start: 07-22-2022 End: 07-22-2022 ambulatory Lili Airamly Other [employer] Other Start: 07-22-2022 Telephone encounter Lili Scally [facility] [place] [facility] Start: 07-09-2022 End: 07-09-2022 ambulatory Lili Scally Other [employer] Other Start: 07-09-2022 Telephone encounter Lili Scally [facility] Start: 07-01-2022 End: 07-02-2022 [facility] Facility: Start: 06-20-2022 End: 06-21-2022 [facility] Facility: Start: 06-16-2022 End: 06-16-2022 ambulatory Lili Scally Other [employer] Other Start: 06-16-2022 Telephone encounter Lili Scally F [place] [facility] Start: 06-06-2022 (DM) Diabetes Lili Scally [facility] Start: 06-06-2022 End: 06-06-2022 ambulatory Lili Scally Other [employer] Other Start: 06-03-2022 End: 06-03-2022 ambulatory NARENDRANATH LAKSHMIPATHY . Facility: Start: 05-15-2022 End: 05-16-2022 [facility] Facility: Start: 05-13-2022 End: 05-13-2022 ambulatory Lili Scally Other [employer] Other Start: 05-13-2022 Telephone encounter Lili Scally [facility] [place] [facility] Start: 04-14-2022 End: 04-14-2022 ambulatory Lili Scally Other [employer] Other Start: 04-14-2022 Telephone encounter Lili Scally [place] [facility] Start: 04-03-2022 End: 04-03-2022 ambulatory Lili Scally Other [employer] Other Start: 04-03-2022 Telephone encounter Lili Aubrey Bello [place] [facility] Start: 03-24-2022 End: 03-24-2022 ambulatory Liil Airamly Other [employer] Other Start: 03-24-2022 Telephone encounter Lili Aubrey [facility] Start: 03-21-2022 End: 03-21-2022 ambulatory Lili Airamly Other [employer] Other Start: 03-21-2022 Telephone encounter Lili Aubrey [facility] Start: 03-06-2022 (DM) Diabetes Lili Aubrey [facility] Start: 03-06-2022 End: 03-07-2022 [facility] [employer] Other Start: 02-13-2022 End: 02-14-2022 [facility] Facility:H1 Start: 12-31-2021 End: 12-31-2021 ambulatory Lililillian Burgos Other [employer] Other Start: 12-31-2021 Telephone encounter Lili Aubrey [facility] Start: 12-11-2021 [facility] Facility:H[facility] Start: 11-20-2021 End: 11-20-2021 ambulatory Lili Airamly Other [employer] Other Start: 11-20-2021 Telephone encounter Lili Aubrey [facility] Start: 11-06-2021 End: 11-07-2021 [facility] Facility:H1 Start: 10-28-2021 (DM) Diabetes Lili Airamly [facility] Start: 10-28-2021 End: 10-28-2021 ambulatory Lili Airamly Other [employer] Other Start: 09-20-2021 End: 09-20-2021 ambulatory Lili Burgos Other [employer] Other Start: 09-20-2021 Telephone encounter Lili matthew [facility] Start: 09-12-2021 End: 09-12-2021 ambulatory Lili Burgos Other [employer] Other Start: 09-12-2021 Telephone encounter Lili matthew [facility] Start: 08-01-2021 End: 08-02-2021 ambulatory [facility] Facility: Start: 07-22-2021 End: 07-22-2021 ambulatory Lili Burgos Other [employer] Other Start: 07-22-2021 Telephone encounter Lili matthew [facility] Start: 07-08-2021 End: 07-08-2021 ambulatory Lili Burgos Other [employer] Other Start: 07-08-2021 Telephone encounter Lili matthew [facility] Start: 07-04-2021 (DM) Diabetes Lili Aubrey [facility] Start: 07-04-2021 End: 07-04-2021 ambulatory Lili Burgos Other [employer] Other Start: 06-20-2021 End: 06-20-2021 ambulatory Clifford Munoz Other [employer] Other Start: 06-20-2021 Telephone encounter Clifford Munoz Ace [facility] Start: 04-19-2021 End: 04-19-2021 ambulatory Clifford Munoz Other [employer] Other Start: 04-19-2021 Telephone encounter Clifford Bello [facility] Start: 03-28-2021 End: 03-28-2021 ambulatory Clifford Munoz Other [employer] Other Start: 03-28-2021 Telephone encounter Clifford Bello [facility] Start: 01-29-2021 End: 01-29-2021 ambulatory Clifford Garciadiff Ghulam Other [employer] Other Start: 01-29-2021 Telephone encounter Clifford Tammy Bloom yasmineGhulam [facility] Start: 11-27-2020 Telephone encounter Clifford key [facility] Start: 11-21-2020 (DM) Diabetes Clifford Tammy Kang [facility] Start: 09-25-2016 End: 09-26-2016 Ambulatory [facility] BLAKE [facility] Start: 09-20-2016 End: 09-20-2016 Emergency department patient visit LAUREN CARDENAS [facility] Start: 09-08-2016 End: 09-15-2016 Evaluation and management of inpatient QUE BLAKE Facility:[facility] Procedures Date Procedure Procedure Detail Performing Clinician Start: 03-10-2024 XR pre/post mri xray Pastora Kohler ADMINISTRATIVE PROCESSOR-C Work Phone: Start: 03-10-2024 MRI of right shoulder Pastora das ADMINISTRATIVE PROCESSOR-C Work Phone: Start: 12-29-2023 Arthrocentesis aspir&/inj interm jt/burs w/o us Lauren HILL Work Phone: Start: 12-29-2023 Radex shoulder complete minimum 2 views Lauren HILL Work Phone: Start: 09-15-2023 Mammography Lauren HILL Work Phone: Start: 07-28-2023 H/O: section History of 3 sections Alexandra Osorio ADMINISTRATIVE PROCESSOR Work Phone: Start: 06-15-2023 Microscopic observation [Identifier] in Cervix by Cyto stain Piotr Logan MD Work Phone: Start: 10-30-2022 Lumbosacral myelography DO Judith Patel Work Phone: Start: 10-07-2022 Dual energy X-ray absorptiometry DO Judith Patel Work Phone: Start: 09-19-2022 MR lumbar spine [...] 06-14-2028 Screening for malignant neoplasm of cervix [facility] [employer] Start: 06-14-2026 Screening for malignant neoplasm of cervix Pap smear [facility] [email or web address] [facility] Start: 08-30-2025 Medicare Annual Wellness (AWV) Medicare Annual Wellness (AWV) [facility] Start: 05-04-2025 Glaucoma screening Diabetes: Retinopathy Screening [facility] Start: 03-01-2025 Urine screening for protein Diabetes: Urine Protein Screening [facility] Start: 11-30-2024 Hemoglobin A1c measurement Diabetes: Hemoglobin A1C [facility] Start: 10-17-2024 Influenza vaccination [facility] Start: 09-26-2024 End: 09-26-2024 Professional / ancillary services management 09/26/2024 9:30 AM EDT Ancillary Procedure [facility] [address] [facility] [address] [place] [address] [facility] Start: 09-23-2024 End: 09-23-2024 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 procedure 09/23/2024 3:30 PM EDT Office Visit [facility] [address] [facility] [place] [address] Lalitha Trujillo, ADMINISTRATIVE PROCESSOR [address] [place] [address] Arrived [facility] Comment on above: Arrived Start: 09-23-2024 End: 09-23-2025 XR Lumbar spine Views W flexion and W extension XR lumbar spine 4+ views w flexion extension Imaging Routine Acute left-sided low back pain with left-sided sciatica Expected: 09/23/2024, Expires: 09/23/2025 [facility] Work Phone: Comment on above: Expected: 09/23/2024, Expires: Start: 09-14-2024 Screening for malignant neoplasm of breast Mammogram [facility] Start: 08-30-2024 End: 08-30-2025 CBC W Auto Differential panel - Blood CBC and differential Lab Routine Encounter for wellness examination Expected: 08/30/2024 (Approximate), Expires: 08/30/2025 [facility] Comment on above: Expected: 08/30/2024 (Approximate), Expi res: 08/30/2025 Start: 08-30-2024 End: 08-30-2025 Comprehensive metabolic 2000 panel - Serum or Plasma Comprehensive metabolic panel Lab Routine Encounter for wellness examination Primary hypertension Type 2 diabetes mellitus with hyperglycemia, with long-term current use of insulin (HCC) Morbid obesity ([facility]) Expected: 08/30/2024 (Approximate), Expires: 08/30/2025 [facility] Work Phone: Comment on above: Expected: 08/30/2024 (Approximate), Expi res: 08/30/2025 Start: 08-30-2024 End: 10-31-2025 DBT Breast - bilateral screening Bilateral screening mammogram with tomosynthesis Imaging Routine Encounter for screening mammogram for malignant neoplasm of breast Expected: 08/30/2024, Expires: 10/31/2025 [facility] Comment on above: Expected: 08/30/2024, Expires: Start: 08-30-2024 End: 08-30-2025 Hemoglobin A1c/Hemoglobin.total in Blood Hemoglobin A1c Lab Routine Encounter for wellness examination Type 2 diabetes mellitus with hyperglycemia, with long-term current use of insulin ([facility]) Morbid obesity ([facility]) Expected: 08/30/2024 (Approximate), Expires: 08/30/2025 [facility] Comment on above: Expected: 08/30/2024 (Approximate), Expi res: 08/30/2025 Start: 08-30-2024 End: 08-30-2025 Lipid 1996 panel - Serum or Plasma Lipid panel Lab Routine Encounter for wellness examination Primary hypertension Type 2 diabetes mellitus with hyperglycemia, with long-term current use of insulin (HCC) Morbid obesity ([facility]) Mixed hyperlipidemia Expected: 08/30/2024 (Approximate), Expires: 08/30/2025 [facility] Comment on above: Expected: 08/30/2024 (Approximate), Expi res: 08/30/2025 Start: 08-30-2024 End: 08-30-2025 TSH W/REFLEX TO FT4 TSH W/REFLEX TO FT4 Lab Routine Encounter for wellness examination Morbid obesity ([facility]) Expected: 08/30/2024 (Approximate), Expires: 08/30/2025 [facility] Comment on above: Expected: 08/30/2024 (Approximate), Expi res: 08/30/2025 Start: 08-24-2024 Hemoglobin A1c measurement Diabetes: Hemoglobin A1C [facility] Start: 08-24-2024 End: 08-24-2024 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 procedure [facility] Comment on above: S/P arthroscopy of right shoulder (Prima ry Dx) Start: 08-09-2024 End: 08-09-2024 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 procedure 08/09/2024 10:30 AM EDT Office Visit [facility] [address] [place] [id number] Pastora Kohler NP [address] [place] [address] [facility] Start: 08-02-2024 End: 08-02-2025 XR Knee - right 4 Views XR knee 4+ views right Imaging Routine Acute pain of right knee Expected: 08/02/2024, Expires: 08/02/2025 [facility] Comment on above: Expected: 08/02/2024, Expires: Start: 08-02-2024 End: 08-02-2025 XR Shoulder - right 2 Views XR shoulder 2+ views right Imaging Routine Acute pain of right shoulder Expected: 08/02/2024, Expires: 08/02/2025 [facility] Work Phone: Comment on above: Expected: 08/02/2024, Expires: Start: 08-02-2024 End: 08-02-2024 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 procedure 08/02/2024 9:30 AM EDT Office Visit [facility] [address] [place] [phone] Pastora Kohler NP [address] [place] [facility] [place] [address] Arrived [facility] Comment on above: Arrived Start: 07-20-2024 End: 07-20-2024 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 procedure [facility] Comment on above: S/P arthroscopy of right shoulder (Prima ry Dx) Start: 07-01-2024 End: 07-01-2024 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 procedure [facility] Comment on above: S/P arthroscopy of right shoulder (Prima ry Dx) Start: 06-28-2024 Hemoglobin A1c measurement A1C test (Diabetic or Prediabetic) [facility] Start: 06-28-2024 Lipid panel Lipids [facility] Start: 06-14-2024 End: 06-14-2026 Echocardiogram 2D complete Echocardiogram 2D complete Echocardiography Routine Nonrheumatic aortic valve stenosis Expected: 06/14/2024 (Approximate), Expires: 06/14/2026 [facility] Work Phone: Comment on above: Expected: 06/14/2024 (Approximate), Expi res: 06/14/2026 Start: 06-14-2024 End: 06-14-2024 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 procedure 06/14/2024 10:00 AM EDT Office Visit [facility] [address] [place] [facility] [place] [address] Jennifer Cabrera MD [address] [facility] [place] [address] Arrived [facility] Comment on above: Arrived Start: 06-10-2024 End: 06-10-2024 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 procedure 06/10/2024 11:30 AM EDT Office Visit [facility] [address] [facility] [place] [phone] Lalitha Trujillo NP [address] [place] [address] Arrived [facility] Comment on above: Arrived Start: 06-09-2024 End: 06-09-2024 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 procedure 06/09/2024 2:45 PM EDT Procedure Visit [facility] [address] [id number] Blane Pino DPM [address] [place] [address] [facility] Start: 06-02-2024 Adult BMI Screening Adult BMI Screening [facility] Start: 06-02-2024 Tobacco Screening Tobacco Screening [facility] Start: 05-31-2024 End: 05-31-2024 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 [facility] Comment on above: Pre-op examination (Primary Dx) Start: 05-23-2024 End: 05-23-2024 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 procedure 05/23/2024 1:30 PM EDT Office Visit [facility] [address] [place] [address] Blane Pino DPM [address] [place] [address] Arrived [facility] Comment on above: Arrived Start: 05-13-2024 Medicare Annual Wellness (AWV) Medicare Annual Wellness (AWV) [facility] Start: 05-04-2024 Hemoglobin A1c measurement Diabetes: Hemoglobin A1C [facility] Start: 04-26-2024 End: 04-26-2024 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 procedure 04/26/2024 8:45 AM EDT Office Visit [facility] [address] [place] [phone] Jr. Rica Rodriguez, DO [address] [place] [address] [facility] Start: 04-21-2024 Urine screening for protein Diabetes: Urine Protein Screening [facility] Start: 04-12-2024 End: 04-12-2025 XR Chest 2 Views [facility] Work Phone: Comment on above: Expected: 04/12/2024, Expires: Start: 04-12-2024 End: 04-12-2024 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 procedure 04/12/2024 11:00 AM EST Office Visit [facility] [address] [place] [phone] Alexandra Osorio ADMINISTRATIVE PROCESSOR [address] [facility] [place] [address] Arrived [facility] Comment on above: Arrived Start: 03-23-2024 End: 03-23-2024 ambulatory 03/23/2024 9:00 AM EST Evaluation [facility] [address] [place] [phone] Sean Tineo, PT [address] [place] [address] Biceps tendinitis, right [facility] Comment on above: Biceps tendinitis, right Start: 03-18-2024 End: 03-18-2024 ambulatory 03/18/2024 2:00 PM EST Evaluation [facility] [address] [place] [phone] Sean Tineo, PT [address] [place] [address] [facility] Start: 03-16-2024 End: 03-16-2024 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 procedure [facility] Comment on above: Acute pain of right shoulder (Primary Dx ); Arthritis of right acromioclavicular joint; Biceps tendinitis, right Start: 03-05-2024 End: 03-05-2024 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 procedure 03/05/2024 9:00 AM EST Office Visit [facility] [address] [place] [phone] Alexandra Osorio ADMINISTRATIVE PROCESSOR [address] [place] [address] Arrived [facility] Comment on above: Arrived Start: 03-03-2024 End: 03-03-2024 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 procedure 03/03/2024 9:30 AM EST Office Visit [facility] [address] [place] [phone] Alexandra Osorio ADMINISTRATIVE PROCESSOR [address] [place] [address] [facility] Start: 03-02-2024 End: 03-02-2024 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 procedure 03/02/2024 9:30 AM EST Office Visit [facility] [address] [facility] [address] [place] [address] Jr. Rica Rodriguez, DO [address] [place] [address] [facility] Start: 02-29-2024 End: 02-29-2024 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 procedure 02/29/2024 4:30 PM EST Office Visit [facility] [address] [facility] [place] [phone] Alexandra Osorio ADMINISTRATIVE PROCESSOR [address] [place] [address] Arrived [facility] Comment on above: Arrived Start: 02-23-2024 End: 02-23-2024 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 procedure 02/23/2024 10:00 AM EST Office [facility] [address] [place] [phone] Lauren Torres, PA [address] [facility] [address] [place] [address] [facility] Start: 01-26-2024 End: 01-26-2024 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 procedure 01/26/2024 10:15 AM EST Office Visit [facility] [address] [place] [phone] Lauren Torres, SERGIO [address] [facility] [address] [place] [address] Acute pain of right shoulder (Primary Dx); Arthritis of right acromioclavicular joint [facility] Comment on above: Acute pain of right shoulder (Primary Dx ); Arthritis of right acromioclavicular joint Start: 01-22-2024 End: 01-22-2024 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 procedure 01/22/2024 10:15 AM EST Office Visit [facility] [address] [place] [address] Lauren Torres, PA [address] [facility] [address] [place] [address] [facility] Start: 01-19-2024 End: 01-19-2024 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 procedure 01/19/2024 11:30 AM EST Office Visit [facility] [address] [place] [place] [phone] Pastora Kohler NP [address] [place] [address] Arrived [facility] Comment on above: Arrived Start: 12-11-2023 End: 12-11-2023 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 procedure [facility] Comment on above: Acute pain of left knee (Primary Dx) Start: 11-20-2023 End: 11-20-2023 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 procedure 11/20/2023 9:00 AM EDT Office Visit [facility] [address] [place] [phone] Lauren Torres PA [address] [facility] [address] [place] [address] Acute pain of left knee (Primary Dx) [facility] Comment on above: Acute pain of left knee (Primary Dx) Start: 10-18-2023 Influenza vaccination [facility] Start: 10-16-2023 Hemoglobin A1c measurement Diabetes: Hemoglobin A1C [facility] Start: 06-30-2023 End: 06-30-2023 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 procedure 06/30/2023 8:30 AM EDT Office Visit Liz L H[facility] - Medical Oncology [address] [place] [phone] Nishi High PA [address] [facility] [address] [place] [address] Liz Deal [facility] - Medical Oncology Start: 06-15-2023 End: 06-15-2023 Admission to same day surgery center 06/15/2023 2:00 PM EDT - 06/15/2023 4:30 PM EDT Surgery [facility] [address] [place] [phone] Edwin Moreno MD [address] [facility] [place] [address] DAVINCI HYSTERECTOMY SALPINGO OOPHORECTOMY [facility] - Surgery Comment on above: DAVINCI HYSTERECTOMY SALPINGO OOPHORECTO Start: 06-15-2023 End: 06-15-2023 DAVINCI DISSECTION LYMPH NODE PELVIC SENTINEL DAVINCI DISSECTION LYMPH NODE PELVIC SENTINEL ENDOMETRIAL CANCER 06/15/2023 2:00 PM EDT [facility] Start: 06-15-2023 End: 06-15-2023 DAVINCI HYSTERECTOMY SALPINGO OOPHORECTOMY DAVINCI HYSTERECTOMY SALPINGO OOPHORECTOMY ENDOMETRIAL CANCER 06/15/2023 2:00 PM EDT [facility] Start: 06-15-2023 Subsequent hospital visit by physician 06/15/2023 2:00 PM EDT Hospital Encounter [facility] Surgery [facility] [place] [address] Edwin Moreno MD [address] [place] [address], [address] [place] [address] [facility] Start: 06-05-2023 End: 06-05-2023 Admission to establishment 06/05/2023 2:45 PM EDT Support Visit [facility] Pre-Admission Clinic On [address] [phone] [facility]-Admission Clinic On [facility] Start: 02-16-2023 Annual Wellness Visit (Medicare Advantage) Annual Wellness Visit (Medicare Advantage) [facility] Start: 01-16-2023 COVID-19 Vaccine ( season) COVID-19 Vaccine () [facility] Start: 10-30-2022 [facility] Start: 10-30-2022 Computerized axial tomography of lumbar spine with contrast [facility] Start: 02-14-2021 Screening for malignant neoplasm of breast Breast cancer screen [facility] Start: 2020 Respiratory Syncytial Virus (RSV) or age 60 yrs+ (1 - 1-dose 60+ series) Respiratory Syncytial Virus (RSV) or age 60 yrs+ (1 - 1-dose 60+ series) [facility] Start: 2010 Administration of varicella zoster vaccine Zoster (Shingles) Vaccine (1 of 2) [employer] Start: 2010 Shingles vaccine (1 of 2) Shingles vaccine (1 of 2) [facility] [employer] Start: 2005 Screening for malignant neoplasm of colon [facility] Start: 1981 Screening for malignant neoplasm of cervix Pap Smear [facility] Start: 1979 Administration of varicella zoster vaccine Zoster (Shingles) Vaccine (1 of 2) [facility] Start: 1979 DTaP,Tdap and Td Vaccines (1 - Tdap) DTaP,Tdap and Td Vaccines (1 - Tdap) [facility] Start: 1979 DTaP/Tdap/Td vaccine (1 - Tdap) DTaP/Tdap/Td vaccine (1 - Tdap) [facility] Start: 1979 Urine screening for protein Diabetes: Urine Protein Screening [facility] Start: 1978 Adult BMI Follow Up Plan Adult BMI Follow Up Plan [facility] Start: 1978 GFR test (Diabetes, CKD 3-4, OR last GFR 15-59) GFR test (Diabetes, CKD 3-4, OR last GFR 15-59) [facility] Start: 1978 Glaucoma screening Diabetic retinal exam [facility] Start: 1978 Hepatitis C screening Hepatitis C screen [facility] Start: 1978 Urine screening for protein Diabetic Alb to Cr ratio (uACR) test [facility] Start: 1975 HIV screening HIV screen [facility] Start: 1972 Depression Monitoring Depression Monitoring [facility] Start: 1972 Depression Screening Depression Screening [facility] Start: 1970 Diabetic foot examination Diabetic foot exam [facility] Start: 1966 Pneumococcal 0-64 years Vaccine (1 of 2 - PCV) Pneumococcal 0-64 years Vaccine (1 of 2 - PCV) [facility] Start: 1960 Medicare Annual Wellness (AWV) Medicare Annual Wellness (AWV) [facility] Start: 1960 Screening for malignant neoplasm of colon [facility] Comprehensive metabo lic 2000 panel - Serum or Plasma [facility] Oxygen therapy [Mini mum Data Set] Initiate Oxygen Therapy Protocol Respiratory Care Routine As Needed until discontinued starting 06/30/2023 [facility] Comment on above: As Needed until discontinued starting Oxygen therapy [Mini mum Data Set] Initiate Oxygen Therapy Protocol Respiratory Care Routine As Needed until discontinued starting 06/30/2023 [facility] Comment on above: As Needed until discontinued starting Patient Education [facility] Work Phone: End: 06-26-2023 Percutaneous coronary intervention [facility] Work Phone: Comment on above: One Time for 1 Occurrences starting 06/16 until 06/26/2023 XR Hip - left 3 Views XR hip lef t 2 or 3 views Imaging Routine Left hip pain 11/20/2023 9:24 AM EDT [facility] XR Knee - left 1 or 2 Views XR knee 1 or 2 views left Imaging Routine Acute pain of left knee 11/20/2023 9:05 AM EDT [facility] Work Phone: [facility] Immunizations Immunization Date Immunization Notes Care Provider Fa [facility] 08-30-2024 Pneumococcal Conjuga te PCV 20 Lalitha Trujillo ADMINISTRATIVE PROCESSOR Work Phone: [facility] 11-21-2022 influenza virus vaccine, unspecified formulation Edwin Moreno MD Work Phone: [facility] 11-21-2022 influenza, injectabl e, quadrivalent, preservative free Lauren HILL Work Phone: [facility] 11-21-2022 SARS-COV-2 (COVID-19 ) vaccine, mRNA, spike protein, LNP, PF, 50 mcg/0.5 mL Lauren HILL Work Phone: [facility] 02-26-2022 influenza virus vaccine, unspecified formulation Piotr Logan MD Work Phone: [facility] 02-26-2022 influenza, injectabl e, quadrivalent, preservative free Lauren HILL Work Phone: [facility] 06-12-2020 COVID-19 Vaccine Moderna - Documentation Purposes Only Clifford Munoz Jr. Other [facility] 05-15-2020 COVID-19 Vaccine Moderna - Documentation Purposes Only Clifford Munoz Jr. Other [facility] 12-09-2016 influenza virus vaccine, unspecified formulation Piotr Logan MD Work Phone: [facility] 12-09-2016 influenza, injectabl e, quadrivalent, preservative free Lauren HILL Work Phone: [facility] 10-17-2016 influenza virus vaccine, unspecified formulation Piort Logan MD Work Phone: [facility] 01-03-2015 influenza virus vaccine, unspecified formulation Piotr Logan MD Work Phone: [facility] 01-03-2015 influenza, seasonal, injectable, preservative free Lauren HILL Work Phone: [facility] 01-03-2014 influenza virus vaccine, unspecified formulation Piotr Logan MD Work Phone: [facility] 01-03-2014 influenza, seasonal, injectable Lauren HILL Work Phone: [facility] Payers Date Payer Category Payer Self-pay [id number] 2022 Medicare (Managed Care) 1.2. [id number] 2022 Unknown OPTUMCARE AARP O PTUMCARE AARP [id number] 2022-Present [address] [address] [place] [address] [id number]. 7.3.966664.315 2021 Unknown [id number] 2021 Medicare [id number]. 1.13.424.2. [id number] 2017 Medicare [id number] 2.16.840.1.433390.19 1960 Unknown [id number] 2.16.840.1.973151.3.579.2. 593 1960 Unknown [id number] 2.16.840.1.429494.3.579.2. 593 1960 Unknown [id number] 2.16.840.1.538837.3.579.2. 593 1960 Unknown [id number] 2.16.840.1.081537.3.579.2. 593 1960 Unknown [id number] 2.16.840.1.487856.3.579.2. 593 1960 Unknown [id number] 2.16.840.1.450068.3.579.2. 593 1960 Unknown [id number] 2.16.840.1.117691.3.579.2. 593 1960 Unknown [id number] 2.16.840.1.660623.3.579.2. 593 1960 Unknown [id number] 2.16.840.1.836288.3.579.2. 593 1960 Unknown [id number] 2.16.840.1.408647.3.579.2. 1286 1960 Unknown [id number] 2.16.840.1.457670.3.579.2. 173 1960 Unknown [id number] 2.16.840.1.130294.3.579.2. 175 1960 Unknown [id number] 2.16.840.1.122017.3.579.2. 175 1960 Unknown [id number] 2.16.840.1.018773.3.579.2. 175 1960 Unknown [id number] 2.16.840.1.797834.3.579.2. 175 1960 Unknown [id number] 2.16.840.1.904779.3.579.2. 175 1960 Unknown [id number] 2.16.840.1.719103.3.579.2. 175 1960 Unknown [id number] 2.16.840.1.150955.3.579.2. 175 1960 Unknown [id number] 2.16.840.1.969807.3.579.2. 175 1960 Unknown [id number] 2.16.840.1.518909.3.579.2. 175 1960 Unknown [id number] 2.16.840.1.064596.3.579.2. 175 1960 Unknown [id number] 2.16.840.1.918361.3.579.2. 718 1960 Unknown [id number] 2.16.840.1.046389.3.579.2. 718 1960 Unknown [id number] 2.16.840.1.004092.3.579.2. 1286 1960 Unknown [id number] 2.16.840.1.755956.3.579.2. 1286 1960 Unknown [id number] 2.16.840.1.126498.3.579.2. 1286 1960 Unknown [id number] 2.16.840.1.584811.3.579.2. 1259 1960 Unknown [id number] 2.16.840.1.431815.3.579.2. 1259 1960 Unknown [id number] 2.16.840.1.685317.3.579.2. 1259 1960 Unknown [id number] 2.16.840.1.797705.3.579.2. 1259 1960 Unknown [id number] 2.16.840.1.004802.3.579.2. 125 1960 Unknown [id number] 2.16.840.1.251234.3.579.2. 1258 1960 Unknown [id number] 2.16.840.1.151360.3.579.2. 125 1960 Unknown [id number] 2.16.840.1.503861.3.579.2. 1258 1960 Unknown [id number] 2.16.840.1.388331.3.579.2. 1258 1960 Unknown [id number] 2.16.840.1.662675.3.579.2. 1258 1960 Unknown [id number] 2.16.840.1.686553.3.579.2. 1258 1960 Unknown [id number] 2.16.840.1.736179.3.579.2. 1258 1960 Unknown [id number] 2.16.840.1.613345.3.579.2. 1258 1960 Unknown [id number] 2.16.840.1.090799.3.579.2. 1258 1960 Unknown [id number] 2.16.840.1.973835.3.579.2. 1258 1960 Unknown [id number] 2.16.840.1.113167.3.579.2. 125 1960 Unknown [id number] 2.16.840.1.616430.3.579.2. 1258 1960 Unknown [id number] 2.16.840.1.605384.3.579.2. 1258 1960 Unknown [id number] 2.16.840.1.532607.3.579.2. 1258 1960 Unknown [id number] 2.16.840.1.418460.3.579.2. 125 1960 Unknown [id number] 2.16.840.1.954004.3.579.2. 1258 1960 Unknown [id number] 2.16.840.1.813082.3.579.2. 1258 1960 Unknown [id number] 2.16.840.1.926207.3.579.2. 1258 1960 Unknown [id number] 2.16.840.1.476466.3.579.2. 1258 1960 Unknown [id number] 2.16.840.1.580467.3.579.2. 1258 1960 Unknown [id number] 2.16.840.1.315901.3.579.2. 1258 1960 Unknown [id number] 2.840.1.564170.3.579.2. 1258 1960 Unknown [id number] 2.16840.1.937069.3.579.2. 1258 1960 Unknown [id number] 2.840.1.778796.3.579.2. 1258 1960 Unknown [id number] 2.840.1.978753.3.579.2. 1258 1959 Medicare [id number] 2.840.1.977735.19 1959 Private Health Insurance [id number] Medicare [id number] 2.840.1.912881.19 Unknown Alexis BC/LUKE [id number] Unknown [id number] 2.840.1.947756.3.579.2. 531 Unknown [id number] 2.840.1.674327.3.579.2. 531 Social History Date Type Detail Facility Unknown if ever smoked [employer] Other Start: 06-15-2023 End: 09-23-2024 Sex Assigned At [facility] Work Phone: Start: 01-03-2021 End: 05-11-2023 Tobacco smoking status NHIS Ex-smoker (finding) [facility] Start: 1960 Sex Assigned At Female [facility] End: 06-20-2010 History of tobacco use Current smoker [facility] End: 06-20-2010 History of tobacco use Cigarette Smoker [facility] Start: 11-03-2022 End: 06-15-2023 Tobacco use and exposure Smokeless tobacco non-user [facility] Start: 06-30-2023 End: 09-23-2024 Alcohol intake Ex-drinker (finding) [facility] Start: 06-15-2023 End: 09-23-2024 History of Social function [facility] Work Phone: Start: 1960 Sex Assigned At Not on file [facility] Start: 11-03-2022 Tobacco smoking status MOIS Never smoked tobacco [facility] Start: 10-30-2022 Alcohol Comment caffeine: 3-4 cups per day [facility] Start: 12-30-2023 End: 05-26-2024 Sex Female (finding) [facility] Start: 06-03-2023 Alcoholic beverage intake Lifetime non-drinker (finding) [facility] Childcare Unknown [facility] Start: 04-12-2024 Alcohol Comment caffeine: 2 cu ps per day [facility] Start: 06-10-2024 Alcohol Comment caffeine: 2-3 cups per day [facility] NEGATED: Highlighted rowStart: NINF History of tobacco use Passive smoker [facility] Medical Equipment Procedure Code Equipment Code Equipment Origin al Text Equipment Identifier Dates Arthroplasty, knee, total, minimally invasive Orthopaedic cement, non-medicated [id number] FDA Start: 01-03-2021 Arthroplasty, knee, total, minimally invasive Uncoated knee femur prosthesis ()[id number] FDA Start: 01-03-2021 Arthroplasty, knee, total, minimally invasive Tibial insert ()[id number] FDA Start: 01-03-2021 Arthroplasty, knee, total, minimally invasive Polyethylene patella prosthesis ()[id number] FDA Start: 01-03-2021 Arthroplasty, knee, total, minimally invasive Uncoated knee tibia prosthesis, metallic ()[id number] FDA Start: 01-03-2021 [id number] Start: 01-29-2021 Blood Sugar Diagnostic (Accu-Chek Guide [...] 05-02-2024 Functional Status Date Assessment Result Facility 09-23-2024 PHQ-9 quick depressi on assessment panel [Reported.PHQ] [facility] 09-23-2024 Patient Health Quest ionnaire 2 item (PHQ-2) [Reported] [facility] 08-30-2024 Patient Health Quest ionnaire 2 item (PHQ-2) [Reported] [facility] 06-14-2024 Patient Health Quest ionnaire 2 item (PHQ-2) [Reported] [facility] Clinical Notes 11-21-2020 to 09-23-2024 Lalitha Trujillo NP - 09/23/2024 3:30 PM Meggan Trujillo NP - 09/14/2024 2:00 PM Meggan Trujillo NP - 08/30/2024 12:30 PM Meggan Trujillo NP - 08/30/2024 12:30 PM EDTPatient Instructions Note Date & Type Note Facility 09-23-2024 History of Present illness Narrative Images from the original note were not included. Subjective Patient ID: Lesli Clay is a 64 y.o. female who presents for Back Pain. HPI History of Present Illness The patient presents for back and hip pain. She reports experiencing pain in her back and hip, which extends down to her knee. This discomfort has been a recurring issue for several years, but the current episode is particularly intense, to the point where she is unable to walk independently. She describes the sensation as a stabbing or pressing pain that intensifies with each step. She is uncertain if the pain was triggered by a specific incident such as twisting, turning, or lifting heavy objects. She also mentions occasional swelling, which she managed with ice application last night. She has been managing the pain with medication and has an upcoming appointment with her crayon painter at the end of this month. Her current medication regimen includes meloxicam twice daily and a muscle relaxer once at night, with additional doses during the day as needed. PAST SURGICAL HISTORY: Shoulder surgery Objective BP 138/74 (BP Location: Left arm, Patient Position: Sitting, BP Cuff Size: Large adult) Pulse 87 Wt 287 lb SpO2 95% BMI 50.84 kg/m Physical Exam Vitals reviewed. Constitutional: Appearance: She is obese. HENT: Head: Normocephalic and atraumatic. Mouth/Throat: Mouth: Mucous membranes are moist. Eyes: Pupils: Pupils are equal, round, and reactive to light. Cardiovascular: Rate and Rhythm: Normal rate and regular rhythm. Pulses: Normal pulses. Heart sounds: Normal heart sounds. Pulmonary: Effort: Pulmonary effort is normal. Breath sounds: Normal breath sounds. Musculoskeletal: Cervical back: Normal range of motion and neck supple. Comments: Mild tenderness to lumbar spine. -SLR B/L, ROM limited, no spasming on exam Skin: General: Skin is warm and dry. Capillary Refill: Capillary refill takes less than 2 seconds. Findings: No rash. Neurological: General: No focal deficit present. Mental Status: She is alert and oriented to person, place, and time. Comments: Ambulates with Rolator Physical Exam Respiratory: Clear to auscultation, no wheezing, rales or rhonchi Cardiovascular: Regular rate and rhythm, no murmurs, rubs, or gallops Musculoskeletal: Tenderness noted upon palpation of the back, no major pain elicited. No pain upon lifting the leg. Skin: Cellulitis resolved Assessment & Plan Assessment & Plan 1. Back and hip pain. - Chronic pain radiating to the knee, recently exacerbated, causing difficulty walking. - No recent trauma or heavy lifting reported; physical exam reveals no major tenderness or swelling. - Discussed medication regimen; advised to verify meloxicam dosage and increase tizanidine to twice daily for acute symptom management. - Recommended physical therapy, she declines at this time; ordered x-rays to evaluate the cause of pain; patient will be contacted with results. - Follow up with pain management. documented in this encounter [facility] 09-14-2024 History of Present illness Narrative Images from the original note were not included. Lesli Clay is a 64 y.o. female presents with chief complaint of ER Follow-up HPI: Flowsheet Row Office Visit from 09/14/2024 in [facility] with Lalitha Trujillo NP Hospital Information ED, Hospital or Group Home Facility Discharge? ED Patient has been contacted within 2 days of being seen in the ED No Have two attempts been made, within 2 days of being seen in the ED, to contact the patient? -- [yes] Diagnosis Cellultis Discharge Date 09/08/24 Discharged To: Home Setting Discharge Hospital [facility] Engagement Admission Date 09/08/24 Medications Discharge medications reviewed and reconciled from hospital? Yes Appointments Does the patient have a primary care provider? Yes Self Management Patient Teaching Does the patient have access to their discharge instructions? Yes Wrap Up ER Follow-up SUBJECTIVE: MEDICATIONS: Current Outpatient Medications Medication Instructions Accu-Chek FastClix Lancets misc Accu-Chek Guide test strip amLODIPine (NORVASC) 5 mg, Oral, Daily amoxicillin-clavulanate (Augmentin) 875-125 MG tablet 1 tablet, 2 times daily ARIPiprazole (Abilify) 15 MG tablet Every 24 hours atorvastatin (LIPITOR) 40 mg, Oral, Daily buPROPion XL (Wellbutrin XL) 300 MG 24 hr tablet ergocalciferol (Vitamin D2) 1.25 MG (75562 UT) capsule hydrOXYzine HCl (ATARAX) 25 mg, Every 6 hours PRN insulin degludec (TRESIBA) 48 Units, Subcutaneous, Nightly Klayesta 295668 UNIT/GM powder APPLY EXTERNALLY TO AFFECTED SKIN AREAS TWICE DAILY NEEDED losartan-hydroCHLOROthiazide (Hyzaar) 50-12.5 MG tablet 1 tablet, Oral, Daily meloxicam (MOBIC) 15 mg, Oral, Daily metFORMIN (Glucophage) 1000 MG tablet Every 24 hours metoprolol tartrate (LOPRESSOR) 25 mg, Oral, 2 times daily with meals nortriptyline (Pamelor) 50 MG capsule oxyCODONE-acetaminophen (Percocet) 5-325 MG tablet 1 tablet, 3 times daily PRN Ozempic (2 MG/DOSE) 2 mg, Weekly pregabalin (LYRICA) 75 mg, 2 times daily tiZANidine (Zanaflex) 4 MG tablet traMADol (ULTRAM) 50 mg I have reviewed and reconciled the history and medication list with the patient today. REVIEW OF SYMPTOMS: Review of Systems OBJECTIVE: Visit Vitals BP 128/74 Pulse 78 Resp 18 Ht 5' 3 Wt 288 lb SpO2 98% BMI 51.02 kg/m Smoking Status Never BSA 2.41 m Physical Exam Vitals reviewed. Constitutional: Appearance: She is obese. HENT: Head: Normocephalic and atraumatic. Nose: Nose normal. Mouth/Throat: Mouth: Mucous membranes are moist. Eyes: Pupils: Pupils are equal, round, and reactive [...] refill takes less than 2 seconds. Findings: Erythema present. No rash. Comments: Left lower leg erythema, warm to touch Neurological: General: No focal deficit present. Mental Status: She is alert and oriented to person, place, and time. ASSESSMENT AND PLAN: Assessment/Plan Diagnoses and all orders for this visit: Left leg cellulitis - doxycycline (Vibra-Tabs) 100 MG tablet; Take 1 tablet (100 mg) by mouth in the morning and 1 tablet (100 mg) before bedtime. Do all this for 10 days. Take with a full glass of water and do not lie down for at least 30 minutes after. -switch to doxy. Follow up in 1 week to reassess. documented in this encounter [facility] 08-30-2024 History of Present illness Narrative Associated Problem(s): Primary hypertension Orders: Comprehensive metabolic panel; Future Lipid panel; Future Discussed current management plan. Goal BP less then 130/80. Discussed heart healthy diet, increase fruits and vegetables, limit salt intake. Encouraged increase physical exercise, try to be as active as possible at least 150 mins per week. Importance of weight management with a goal BMI less then 27 discussed. Discussed complications of uncontrolled blood pressure. Patient instructed to monitor BP's 1-2 times a week, keep a log, and bring to next visit. Barriers to care and medication compliance discussed. Patient voices understanding of meds. Associated Problem(s): Type 2 diabetes mellitus with hyperglycemia, with long-term current use of insulin (HCC) Orders: Comprehensive metabolic panel; Future Lipid panel; Future Hemoglobin A1c; Future -check A1c. Diabetic protocols reviewed. Discussed and updated current [...] include blindness, heart disease and kidney disease. 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 Good control of DM and HTN. Associated Problem(s): Chronic pain disorder -managed by pain management Images from the original note were not included. Subjective Patient ID: Lesli Clay is a 64 y.o. female who presents for Leg Pain and Hip Pain. Over the past 2 weeks, how often have you been bothered by any of the following problems? Little interest or pleasure in doing things: Not at all Feeling down, depressed, or hopeless: Not at all Patient Health Questionnaire-2 Score: 0 Over the past 2 weeks, how often have you been bothered by any of the following problems? Trouble falling or staying asleep, or sleeping too much: Not at all Feeling tired or having little energy: Several days Poor appetite or overeating: Not at all Feeling bad about yourself - or that you are a failure or have let yourself or your family down: Not at all Trouble concentrating on things, such as reading the newspaper or watching television: Not at all Moving or speaking so slowly that other people could have noticed? Or the opposite - being so fidgety or restless that you have been moving around a lot more than usual.: Not at all Thoughts that you would be better off or hurting yourself in some way: Not at all Patient Health Questionnaire-9 Score: 1 Pineda Fall Risk History of Falling, Immediate or Within 3 Months: Yes Secondary Diagnosis: No Ambulatory Aid: Crutches/cane/walker Intravenous Therapy/Heparin Lock: No Gait/Transferring: Normal/bedrest/immobile Mental Status: Oriented to own ability Pineda Fall Risk Score: 40 Health Risk Assessment Form Do you need help eating, bathing, using the toilet, dressing, or getting around your home?: No Can you prepare your own meals?: Yes Can you do your own housework without help?: No Can you shop for groceries or clothes without help?: Yes Do you exercise for about 20 minutes 3 or more days a week?: No How confident are you that you can control and manage most of your health problems?: Very confident Can you mange your money, credit cards and accounts, pay bills and taxes?: Yes Vision Screening: Not done Hearing Screening: Not done Cognitive Screening Three Word Registration: Rui Salcedo, Finger Clock Drawing: Normal Clock - 2 Three Word Recall: All 3 words correct - 3 Total Score (0-5 Points): 5 Pain Assessment Pain Score: 7 Leg Pain Hip Pain History of Present Illness The patient presents for evaluation of hip pain. She has been experiencing pain in her hip that radiates down her leg for the past 2 weeks. The pain is primarily localized to the side of her hip, with some discomfort extending down her leg. She also reports spasms in her leg. She is uncertain if it is related to the sciatic nerve. She has not undergone physical therapy for her hip due to financial constraints. She is currently under the care of a crayon painter and takes medication, but it does not seem to alleviate the pain. She takes [id number] Motrin 3 times daily, including once at night with her other medications. She is scheduled to see her crayon painter in either September or October 2024, as she has appointments every 3 months. She has had several MRIs of her back. She had shoulder surgery on 06/17/2024 and was given papers to do therapy at home. She had an MRI of the shoulder. Her blood sugar levels at home have been ranging from 100 to 150, with occasional readings as low as 112. She sees the eye doctor every year, with her last visit in 07/2024. She sees the dentist every couple of years. She still sees the oncologist yearly and is due to see her on 10/2024. She is due for her mammogram and has not done it this year. She is due for colon cancer screening but prefers not to do that as she is too scared. She has no family history of colon cancer. She gets her influenza vaccine in the fall. She has not had a pneumonia vaccine. PAST SURGICAL HISTORY: Shoulder surgery on 06/17/2024 FAMILY HISTORY She has no family history of colon cancer. Objective Temp 97.3 F Wt 287 lb 9.6 oz BMI 50.95 kg/m Physical Exam Vitals reviewed. Constitutional: Appearance: She is obese. HENT: Head: Normocephalic and atraumatic. Right Ear: Tympanic membrane normal. Left Ear: Tympanic membrane normal. Nose: Nose normal. Mouth/Throat: Mouth: Mucous membranes are moist. Eyes: Pupils: Pupils are equal, round, and reactive to light. Cardiovascular: Rate and Rhythm: Normal rate and regular rhythm. Pulses: Normal pulses. Heart sounds: Normal heart sounds. Pulmonary: Effort: Pulmonary effort is normal. Breath sounds: Normal breath sounds. Musculoskeletal: Cervical back: Neck supple. Right lower leg: No edema. Left lower leg: No edema. Comments: SI point tenderness and tenderness over greater troch. Spasming with SLR on the left Skin: General: Skin is warm and dry. Capillary Refill: Capillary refill takes less than 2 seconds. Findings: No rash. Neurological: General: No focal deficit present. Mental Status: She is alert and oriented to person, place, and time. Comments: Ambulates with walker Physical Exam Assessment & Plan Encounter for wellness examination Orders: Comprehensive metabolic panel; Future Lipid panel; Future TSH W/REFLEX TO FT4; Future Hemoglobin A1c; Future CBC and differential; Future Discussed height, weight and BMI. Encouraged healthy diet and regular exercise. Discussed vaccines and encouraged yearly flu shot. Annual eye and dental exam. Vaccines and cancer screens reviewed for completeness. Screen labs as needed. Assessed needs for tools in the home for independence. Living will and durable power of estate attorney reviewed. Updated patient problem list and reviewed all current medications with patient. Given time to ask questions. Primary hypertension Orders: Comprehensive metabolic panel; Future Lipid panel; Future Discussed current management plan. Goal BP less then 130/80. Discussed heart healthy diet, increase fruits and vegetables, limit salt intake. Encouraged increase physical exercise, try to be as active as possible at least 150 mins per week. Importance of weight management with a goal BMI less then 27 discussed. Discussed complications of uncontrolled blood pressure. Patient instructed to monitor BP's 1-2 times a week, keep a log, and bring to next visit. Barriers to care and medication compliance discussed. Patient voices understanding of meds. Type 2 diabetes mellitus with hyperglycemia, with long-term current use of insulin ([facility]) Orders: Comprehensive metabolic panel; Future Lipid panel; Future Hemoglobin A1c; Future -check A1c. Diabetic protocols reviewed. Discussed and updated current [...] include blindness, heart disease and kidney disease. History of uterine cancer -managed by oncology Morbid obesity ([facility]) Orders: Comprehensive metabolic panel; Future Lipid panel; Future TSH W/REFLEX TO FT4; Future Hemoglobin A1c; Future -healthy eating habits, increase physical exercise. On GLP1 Mixed hyperlipidemia Orders: Lipid panel; Future -on a statin Encounter for screening mammogram for malignant neoplasm of breast Orders: Bilateral screening mammogram with tomosynthesis; Future Encounter for immunization Orders: Pneumococcal conjugate vaccine 20-valent IM Left hip pain Orders: meloxicam (Mobic) 15 MG tablet; Take 1 tablet (15 mg) by mouth Daily -will initiate mobic to help decrease inflammation. If A1c results come back good range, will send in short round of steroids. Continue pain medication per pain management, recommend physical therapy, she declines at this time. Recurrent major depressive disorder, in partial remission -manage by psych ocean transportation intermediary (current) use of insulin ([facility]) Chronic kidney disease, stage 2 (mild) -drink plenty of fludis. Good control of DM and HTN. Chronic pain disorder -managed by pain management Assessment & Plan 1. Hip pain. - Symptoms suggest possible bursitis or an arthritis flare-up. - X-rays from last year showed mild arthritis in the left hip. - Discontinue ibuprofen; prescription for meloxicam will be provided to manage inflammation. - Blood work will be conducted today to assess A1c, cholesterol, kidney function, electrolytes, and thyroid levels. If A1c is <7, a course of steroids may be considered for additional relief. 2. Diabetes mellitus. - Blood sugar levels at home range between 100 and 150. - Blood work will be conducted today to assess A1c, cholesterol, kidney function, electrolytes, and thyroid levels. - If A1c is <7, a course of steroids may be considered for additional relief of hip pain. - Recommended to receive Tdap vaccine every 10 years due to diabetes history. 3. Health maintenance. - Advised to get influenza vaccine in the fall. - Mammogram will be ordered as it has not been done this year. - Due for colon cancer screening; will consider the Cologuard test. - Pneumonia vaccine will be administered today. documented in this encounter [facility] 08-24-2024 History of Present illness Narrative Images from the original note were not included. Orthopedic Office note: NAME: Lesli Clay : 1960 EST PT S/P RT SHOULDER SCOPE 06/17/24 (9 WKS 5 DAYS) @ [facility]- CONTINUES HEP; PT ADMITS TO NOT DOING HEP FAITHFULLY - NOTES GOOD IMPROVEMENT- NOTES PAIN TOP OF SHOULDER WITH CERTAIN MOVEMENTS- INCREASE ROM- +PERCOCET/MOTRIN; PER CYNTHIA Right Shoulder Exam Tenderness The patient is experiencing no tenderness (compartments soft). Range of Motion Active abduction: 150 Passive abduction: 160 (gentle pendulums easily) Extension: 60 External rotation: 80 Forward flexion: 160 Internal rotation 0 degrees: L4 Muscle Strength Right shoulder normal muscle strength: [...] were placed in this encounter. Procedures Results S/p Biceps tenodesis and SAD ICD-10-CM 1. S/P arthroscopy of right shoulder Z98.890 Assessment & Plan Post-operative status following right shoulder arthroscopy, with a history of biceps tenodesis and subacromial decompression. She reports a significant reduction in pain compared to the previous visit. An incidental fall had previously exacerbated her pain. She demonstrates near full active and passive range of motion, although stiffness is noted at the end range. She admits to not performing her home exercises as frequently as recommended. Her strength is satisfactory, with deltoid strength at 5/5 and rotator cuff strength at 4+/5, without any pain or tenderness upon gentle stress of her biceps. She expresses satisfaction with her progress. It was discussed that she may progress to strengthening exercises in 2 weeks without restriction. Treatment plan: Progress to strengthening exercises in 2 weeks without restriction. Left leg sciatic issue. She is currently experiencing more issues with left leg sciatica. She is advised to consult her [place] pain management provider if needed or primary care physician if her symptoms persist or worsen for further evaluation, considering her current pain medication regimen. Prior history of back surgery Follow-up: She will follow up on an as-needed basis. PROCEDURE Procedure Performed Right shoulder arthroscopy Questions answered in laymen terms at the bedside. The diagnosis, home exercise plan and any ongoing restrictions/ recommendations reviewed. If unable to be reached in office, I recommend evaluation at nearest Emergency Room if any symptoms worsened or new symptoms develop for requiring urgent evaluation. Visit was preformed using [employer] speech recognition. documented in this encounter [facility] 08-02-2024 Telephone encounter Note Reviewed Xrays- (R) knee and shoulder- no obvious fracture.... Pt's spouse also had MRI done..- Will call to discuss results. Spoke with pt. Reports she fell on right side, hit knee cap.. will focus on ice and rest.. shoulder is sore... formal radiology reads pending.... will keep scheduled follow up for now. [facility] 08-02-2024 Miscellaneous Notes Reviewed Xrays- (R) knee and shoulder- no obvious fracture.... Pt's spouse also had MRI done..- Will call to discuss results. Spoke with pt. Reports she fell on right side, hit knee cap.. will focus on ice and rest.. shoulder is sore... formal radiology reads pending.... will keep scheduled follow up for now. Patient's called to let us know she did have xrays done today at her appt for her knee and shoulder. Patient's called in stating patient fell on her right arm today and paramedics thinks she should be seen sooner. She is scheduled with you 08/24 in [place]. There is no earlier openings. Please advise. documented in this encounter [facility] 08-02-2024 Telephone encounter Note Patient's called to let us know she did have xrays done today at her appt for her knee and shoulder. [facility] 08-02-2024 History of Present illness Narrative Images from the original note were not included. Lesli Clay is a 64 y.o. female presents with chief complaint of Knee Injury HPI: HPI Patient is present with c/o right knee injury after falling yesterday. Patient also injured her right shoulder. Patient states that she had surgery on her right shoulder on June 17. She states that she contacted her ortho office, but they are unable to get her in soon so they advised that she get an x-ray done through her PCP. SUBJECTIVE: MEDICATIONS: Current Outpatient Medications Medication Instructions Accu-Chek FastClix Lancets [facility] Accu-Chek Guide test strip ARIPiprazole (Abilify) 15 MG tablet Every 24 hours ARIPiprazole (ABILIFY) 10 mg, Daily atorvastatin (LIPITOR) 40 mg, Oral, Daily buPROPion XL (Wellbutrin XL) 300 MG 24 hr tablet ergocalciferol (Vitamin D2) 1.25 MG (86391 UT) capsule hydrOXYzine HCl (ATARAX) 25 mg, Every 6 hours PRN insulin degludec (TRESIBA) 48 Units, Subcutaneous, Nightly Klayesta [id number] UNIT/GM powder APPLY EXTERNALLY TO AFFECTED SKIN [...] REVIEW OF SYMPTOMS: Review of Systems Constitutional: Negative for chills and fatigue. HENT: Negative for ear discharge, ear pain, rhinorrhea and sore throat. Eyes: Negative for pain and redness. Respiratory: Negative for cough and chest tightness. Cardiovascular: Negative for chest pain and palpitations. Gastrointestinal: Negative for abdominal distention and abdominal pain. Genitourinary: Negative for difficulty urinating and frequency. Musculoskeletal: Positive for arthralgias, gait problem and joint swelling (right knee and right shoulder). Skin: Negative. Neurological: Negative for dizziness and numbness. Endocrine: Negative. Allergic/Immunologic: Negative. OBJECTIVE: Visit Vitals Smoking Status Never Physical Exam Vitals reviewed. Cardiovascular: Rate and Rhythm: Normal rate and regular rhythm. Pulses: Normal pulses. Heart sounds: Normal heart sounds. Pulmonary: Effort: Pulmonary effort is normal. Breath sounds: Normal breath sounds. Musculoskeletal: Right shoulder: Tenderness (acromial process) present. Decreased range of motion. Decreased strength. Normal pulse. Right knee: Swelling and ecchymosis present. Decreased range of motion. Tenderness present. Normal pulse. Skin: General: Skin is warm and dry. Neurological: General: No focal deficit present. Mental Status: She is oriented to person, place, and time. ASSESSMENT AND PLAN: Assessment/Plan Diagnoses and all orders for this visit: Acute pain of right shoulder-ice ,rest - XR shoulder 2+ views right; Future Acute pain of right knee-ice, rest - XR knee 4+ views right; Future Primary hypertension -add norvasc and recheck in 1 week. - amLODIPine (Norvasc) 5 MG tablet; Take 1 tablet (5 mg) by mouth Daily documented in this encounter [facility] 08-01-2024 Telephone encounter Note Patient's called in stating patient fell on her right arm today and paramedics thinks she should be seen sooner. She is scheduled with you 08/24 in [place]. There is no earlier openings. Please advise. [facility] 07-20-2024 History of Present illness Narrative Images from the original note were not included. Orthopedic Office note: NAME: Lesli Clay : 1960 EST PT S/P RT SHOULDER SCOPE 06/17/24 (4 WKS 5 DAYS) @ [facility]- WEARING ULTRA SLING WITHOUT THE PILLOW. SORENESS [...] with improved pain management. However, there is minimal stiffness observed during passive motion at the end [...] requiring urgent evaluation. Visit was preformed using [employer] speech recognition. documented in this encounter [facility] 07-01-2024 History of Present illness Narrative Images from the original note were not included. Orthopedic Office note: NAME: Lesli Clay : 1960 EST PT S/P RT SHOULDER SCOPE 06/17/24 (2WKS) [facility]- DOING WELL- NOTES SOME DISCOMFORT- WEARING SLING- [...] requiring urgent evaluation. 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 documented in this encounter [facility] 07-01-2024 Instructions SERGIO Iglesias - 07/01/2024 10:00 [...] soon as possible documented in this encounter [facility] 06-21-2024 History of Present illness Narrative Images [...] requiring urgent evaluation. Visit was preformed using [employer] boat captain speech recognition. documented in this encounter [facility] 06-20-2024 Note [id number] [facility] 06-17-2024 Note [facility] SURGERY Clinical Discharge Summary PERSON INFORMATION Name LESLI CLAY Age 64 Years 1960 Sex FEMALE Language [employer] PCP JENNIFER CABRERA Marital Status Phone Med Service Ambulatory Surgery Acct# Arrival 06/17/2024 10:32:36 Visit Reason SURGERY - RIGHT SHOULDER ARTHROSCOPY WITH ROTATOR CUFF REPAIR AND BICEP TENODESIS Acuity LOS 052 05:37 Address: [address] [place] [address] Comment: PROVIDER INFORMATION VITALS INFORMATION Vital Sign [...] (pregabalin 100 mg (more content not included)... [facility] 06-16-2024 Telephone encounter Note PDMP reviewed. Patient takes 7.5mg oxycodone 3x a day. [facility] Work Phone: 06-16-2024 Miscellaneous Notes PDMP reviewed. Patient takes 7.5mg oxycodone 3x a day. documented in this encounter [facility] 06-14-2024 History of Present illness Narrative Images from the original note were not included. Lesli Clay is a 64 y.o. female presents with chief complaint of Rt shoulder replacement 06/17/24 at [facility] EKG and labs done on 06/01/24. HPI: [...] nortriptyline. Chronic pain is managed by a crayon painter. Tizanidine is taken once at night as [...] Outpatient Medications Medication Instructions Accu-Chek FastClix Lancets [facility] Accu-Chek Guide test strip ARIPiprazole (Abilify) 15 MG tablet Every 24 hours ARIPiprazole (ABILIFY) 10 mg, Daily atorvastatin (LIPITOR) 40 mg, Oral, Daily buPROPion XL (Wellbutrin XL) 300 MG 24 hr tablet ergocalciferol (Vitamin D2) 1.25 MG (84639 UT) capsule hydrOXYzine HCl (ATARAX) 25 mg, Every 6 hours PRN insulin degludec (TRESIBA) 48 Units, Subcutaneous, Nightly Klayesta [id number] UNIT/GM powder APPLY EXTERNALLY TO AFFECTED SKIN [...] day. - Pain management regimen prescribed by crayon painter. - Continue current medications and follow-up as [...] prior to surgery. documented in this encounter [facility] 06-10-2024 History of Present illness Narrative Images [...] Outpatient Medications Medication Instructions Accu-Chek FastClix Lancets [facility] Accu-Chek Guide test strip ARIPiprazole (Abilify) 15 MG tablet Every 24 hours atorvastatin (LIPITOR) 40 mg, Oral, Daily buPROPion XL (Wellbutrin XL) 300 MG 24 hr tablet ergocalciferol (Vitamin D2) 1.25 MG (60773 UT) capsule hydrOXYzine HCl (ATARAX) 25 mg, Every 6 hours PRN insulin degludec (TRESIBA) 48 Units, Subcutaneous, Nightly Klayesta [id number] UNIT/GM powder APPLY EXTERNALLY TO AFFECTED SKIN [...] SURGERY 2016 x2 Rods and Screws at IN SECTION, LOW TRANSVERSE x 3 DILATION AND CURETTAGE DILATION AND CURETTAGE OF UTERUS 05/22/2023 hysteroscopy with myosure HYSTERECTOMY LUMBAR FUSION 2010 Dr. Ken NECK SURGERY 2009 C5-C6 Neck - Dr. Ken NM ARTHROSCOPY KNEE DIAGNOSTIC W/WO SYNOVIAL BX SPX Left 2011 @[place]? NM TOTAL KNEE ARTHROPLASTY Right 10/2017 Dr. Blake [...] persist or worsen. documented in this encounter [facility] 05-31-2024 History of Present illness Narrative Images from the original note were not included. GENERAL HISTORY AND PHYSICAL: NAME: Lesli Clay : 1960 HISTORY OF PRESENT ILLNESS: Lesli Clay is an 64 y.o. @ female. Here for surgery instructions H&P right shoulder scope @ [place]. PAST MEDICAL HISTORY: Past Medical History: Diagnosis Date Abdominal pain Anxiety Cellulitis R foot 08/2016 COVID 02/2020 DENIES BLOODBORNE DX Depression (CMS/HCC) Diabetes (CMS/HCC) Endometrial cancer (CMS/HCC) GERD (gastroesophageal reflux disease) HTN (hypertension) (CMS/HCC) Hyperlipidemia (CMS/HCC) Osteoarthritis RSD (reflex sympathetic dystrophy) PAST SURGICAL HISTORY: Past Surgical History: Procedure Laterality Date BACK SURGERY 2015 x2 Rods and Screws at IN SECTION, LOW TRANSVERSE x 3 DILATION AND CURETTAGE DILATION AND CURETTAGE OF UTERUS 05/22/2023 hysteroscopy with myosure HYSTERECTOMY LUMBAR FUSION 2010 Dr. Ken NECK SURGERY 2009 C5-C6 Neck - Dr. Jesus Manuel MASSEY ARTHROSCOPY KNEE DIAGNOSTIC W/WO SYNOVIAL BX SPX Left 2011 @UT? NM TOTAL KNEE ARTHROPLASTY Right 10/2017 Dr. Blake [...] Outpatient Medications Medication Instructions Accu-Chek FastClix Lancets [facility] Accu-Chek Guide test strip ARIPiprazole (Abilify) 15 MG tablet Every 24 hours atorvastatin (LIPITOR) 40 mg, Oral, Daily buPROPion XL (Wellbutrin XL) 300 MG 24 hr tablet ergocalciferol (Vitamin D2) 1.25 MG (46013 UT) capsule hydrOXYzine HCl (ATARAX) 25 mg, [...] INSTRUCTIONS May @ 2:30PM PRE OP TESTING ULISES May @ 12:00 LAST OZEMPIC DOSE May ARTHREX NOTIFIED AUTH RECIEVED No follow-ups on file. documented in this encounter [facility] 05-25-2024 Evaluation note Diagnosis Onset Date Resolution Dietary counseling and surveillance acute May 25, 2024 9:32am Encounter for long-term (current) insulin use acute May 25, 2024 9:32am Hyperlipemia acute May 25 025 9:32am Hypertension acute May 25 025 9:32am Type 2 diabetes mellitus with hyperglycemia acute May 25 9:32am Vitamin D deficiency, unspecified acute May 25, 2024 9:32am [facility] Work Phone: 1([phone]) 138-197904-07-2025 History of Present illness Narrative* Blane Nunes Dagoberto, DPM - 05/23/2024 1:30 PM EDT Images from the original note were not included. Subjective Patient ID: Lesli Clay is a 64 y.o. female who presents for IPK Lesion (Lesli Clay 64yo patient presents with Left foot callus pain. /BS 103 A1C 9.7 (01/2025)Dr. Cabrrea/Yoly 04/12/2024 SS 9). HPI Patient last in [...] poor quality slip on shoes; recently purchased [employer] footwear with memory foam, which has been [...] Rfl: 0 ergocalciferol (Vitamin D2) 1.25 MG (17202 UT) capsule, TAKE 1 CAPSULE BY MOUTH [...] SURGERY 2009 C5-C6 Neck - Dr. Ken NM ARTHROSCOPY KNEE DIAGNOSTIC W/WO SYNOVIAL BX SPX Left 2011 @UT? NM TOTAL KNEE ARTHROPLASTY Right 10/2017 Dr. Blake [...] understanding. Blane Pino DPM documented in this [facility]04-07-2025 Instructions* Patient Instructions* Blane Pino DPM - 05/23/2024 1:30 PM EDT As noted documented in this [facility]03-11-2025 History of Present illness Narrative* Jr. Rica [...] VISIT WITH INSTRUCTION ON HEP) PAIN MANAGEMENT @[facility] NO IMPROVEMENT. PAIN LATERAL AND ANTERIOR SHOULDER. [...] for claustrophobia ergocalciferol (Vitamin D2) 1.25 MG (41347 UT) capsule TAKE 1 CAPSULE BY MOUTH [...] Use - Medium Risk (04/11/2024) Received from [facility] Patient History Smoking Tobacco [...] for requiring urgent evaluation. documented in this encounterCenterpoint Medical [id number] Telephone encounter Note* Telephone Encounter - Lalitha Trujillo NP - 04/18/2024 2:11 PM EST Can you please get her schedule for DM appointment next week, she is due to have her A1c rechecked [facility] Work Phone: [phone] 277-332103-03-2025 Miscellaneous Notes* Telephone Encounter - Lalitha Trujillo NP - 04/18/2024 2:11 PM EST Can you please get her schedule for DM appointment next week, she is due to have her A1c rechecked documented in this encounterCenterpoint Medical CenterGxkdpusovd12-73-1877 History of Present illness Narrative* Alexandra Osorio [...] of asthma. She has been self-medicating with bgdk-rja-sehjvse cough and cold medications but did not take any such medication yesterday. 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 Ken NECK SURGERY 2009 C5-C6 Neck - Dr. Ken NM ARTHROSCOPY KNEE DIAGNOSTIC W/WO SYNOVIAL BX SPX Left 2011 @IN? NM TOTAL KNEE ARTHROPLASTY Right 10/2017 Dr. 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 She is advised to monitor her blood pressure at home on a weekly basis and report any readings exceeding 150/90. She is also reminded to adhere to herdaily antihypertensive medication regimen and maintain adequate hydration. No follow-ups on file. documented in this encounterCenterpoint Medical [id number] History of Present illness Narrative* Sean Tineo, [...] be ind with HEP for maintenance at [place] and able to avoid further intervention Pt [...] Please sign below. Date: documented in this encounterCenterpoint Medical [id number] History of Present illness Narrative* Jr. Rica Rodriguez, DO - 03/16/2024 9:00 AM EST Images from the original note were not included. HISTORY OF PRESENT ILLNESS: EST PT Lesli Clay is an 64 y.o. @ female. (EST PT) - S/P MRI (03/10/24) , HERE FOR RESULTS ; RT SHOULDER PAIN (~4 MONTHS) (NOV 2023) XRAY RT SHOULDER EPIC 12/29/23 MRI (03/10/24) CORTISONE INJX (AC) 12/29/23 NO MDP/PREDNISONE NO PT PAIN MANAGEMENT @[facility] STATES SHOULDER IS FEELING WORSE. PAIN LATERAL [...] for claustrophobia ergocalciferol (Vitamin D2) 1.25 MG (25725 UT) capsule TAKE 1 CAPSULE BY MOUTH [...] Use - Medium Risk (01/05/2024) Received from [facility] Patient History Smoking Tobacco Use: Former Smokeless [...] for requiring urgent evaluation. documented in this [facility]01-28-2025 Telephone encounter Note* Telephone Encounter - Jennifer Cabrera MD - 2024 12:47 PM EST Refills sent. [facility] [id number] Miscellaneous Notes* Telephone Encounter - Jennifer Cabrera MD - 2024 12:47 PM EST Refills sent. documented in this [facility]01-18-2025 Telephone encounter Note* Telephone Encounter - Alexandra Osorio NP - 03/05/2024 9:01 AM EST Please call and request her records from Lili Burgos NP at [facility] for her diabetes. [facility] [id number] Miscellaneous Notes* Telephone Encounter - Alexandra Osorio NP - 03/05/2024 9:01 AM EST Please call and request her records from Lili Burgos NP at [facility] for her diabetes. documented in this [facility]01-18-2025 History of Present illness Narrative* Comfort French [...] for claustrophobia ergocalciferol (Vitamin D2) 1.25 MG (83467 UT) capsule TAKE 1 CAPSULE BY MOUTH [...] She is under the care of an hat designer for her diabetes management. Her most recent brrwifbluuW7n level was either 7.9 or 8, indicating [...] for claustrophobia ergocalciferol (Vitamin D2) 1.25 MG (90288 UT) capsule TAKE 1 CAPSULE BY MOUTH [...] 02/2020 DENIES BLOODBORNE DX Depression (CMS/HCC) Diabetes ([facility]/HCC) GERD (gastroesophageal reflux disease) HTN (hypertension) ([facility]) Hyperlipidemia (CMS/HCC) Osteoarthritis RSD (reflex sympathetic dystrophy) Social History Tobacco Use Smoking status: Never Smokeless tobacco: Never Vaping Use Vaping status: Never Used Substance Use Topics Alcohol use: Not Currently Comment: caffeine: 3-4 cups per day Drug use: Never Past Surgical History: Procedure Laterality Date BACK SURGERY 2016 x2 Rods and Screws at IN SECTION, LOW TRANSVERSE x 3 DILATION AND CURETTAGE DILATION AND CURETTAGE OF UTERUS 05/22/2023 hysteroscopy with myosure LUMBAR FUSION 2010 Dr. Ken NECK SURGERY 2009 C5-C6 Neck - Dr. Ken NM ARTHROSCOPY KNEE DIAGNOSTIC W/WO SYNOVIAL BX SPX Left 2011 @IN? NM TOTAL KNEE ARTHROPLASTY Right 10/2017 Dr. Blake [...] mononeuropathy, with long-term current use of insulin ([facility]) Skin rash Assessment & Plan [...] 8, indicating suboptimal control. Records from her hat designer will be requested to review her recent A1c levels and overall management plan. No follow-ups on file. documented in this encounterCenterpoint Medical CenterRlaixlkhnz47-81-4277 Telephone encounter Note* Telephone Encounter - Omaira Estrada - 03/02/2024 1:20 PM EST Patient notified [facility] [id number] Miscellaneous Notes* Telephone Encounter - Omaira Estrada - 03/02/2024 1:20 PM EST Patient notified * Telephone Encounter - SERGIO Iglesias - 03/02/2024 12:38 PM EST Rx sent to pharmacy, please notify pt. She can not drive with medication and can't work after taking them.. will need a auto parts delivery driver too and from MRI appt. * [...] would like to try that. She uses [facility]. Her call back is [phone]. Please advise, thank you documented in this encounterCenterpoint Medical CenterEtnliblzdl28-74-7363 Telephone encounter Note* Telephone Encounter - SERGIO Iglesias - 03/02/2024 12:38 PM EST Rx sent to pharmacy, please notify pt. She can not drive with medication and can't work after taking them.. will need a auto parts delivery driver too and from MRI appt. [facility] CenterHrxoqppxdp95-25-1081 Telephone encounter Note* Telephone Encounter - Omaira Estrada - 03/02/2024 10:31 AM EST Patient called asking about medication for MRI for claustrophobia. Patient states she has tried the pills for premed (possibly Xanax but she isn't sure) and they did not help her. Patient states another medication was discussed in office and she would like to try that. She uses [facility]. Her call back is [phone]. Please advise, thank you [facility] [id number] History of Present illness Narrative* Alexandra Osorio, ADMINISTRATIVE PROCESSOR - 02/29/2024 4:30 PM EST Images from [...] She is under the care of an hat designer, Dr. Burgos, at [facility] for her diabetes management. Her last consultation [...] tablet daily ergocalciferol (Vitamin D2) 1.25 MG (79598 UT) capsule TAKE 1 CAPSULE BY MOUTH [...] mononeuropathy, with long-term current use of insulin ([facility]) Symptoms are likely related to diabetic neuropathy. She does see Lili Burgos at [facility] for diabetes and had an A1C in [...] and agreed to plan. documented in this encounterCenterpoint Medical CenterGasahytknr71-03-3102 History of Present illness Narrative* SERGIO Iglesias [...] tablet daily ergocalciferol (Vitamin D2) 1.25 MG (07881 UT) capsule TAKE 1 CAPSULE BY MOUTH [...] Use - Medium Risk (01/05/2024) Received from [facility] Patient History Smoking Tobacco Use: Former Smokeless [...] The possibility of conducting the MRI at [facility] with potential IM sedation was considered, and [...] for requiring urgent evaluation. documented in this encounterCenterpoint Medical CenterLixdendezy61-81-8562 History of Present illness Narrative* Pastora Kohler, [...] tablet daily ergocalciferol (Vitamin D2) 1.25 MG (32691 UT) capsule TAKE 1 CAPSULE BY MOUTH [...] office tomorrow in improvement. documented in this encounterCenterpoint Medical CenterXurwtgrydx49-35-9283 Evaluation note* Diagnosis Onset Date Resolution Status Admit Date Dietary counseling and surveillance acute December 29, 2 024 9:39am Encounter for long-term (current) insulin use acute December 172023 9:39am Hyperlipemia acute December 9:39am Hypertension acute December 9:39am Type 2 diabetes mellitus wit h hyperglycemia acute December 29, 2 024 9:39am Vitamin D deficiency, unspecified acute December 29 024 9:39am [facility] Work Phone: 1(893) 610-182511-12-2024 History of Present illness Narrative* SERGIO Iglesias [...] tablet daily ergocalciferol (Vitamin D2) 1.25 MG (39879 UT) capsule TAKE 1 CAPSULE BY MOUTH [...] Use - Medium Risk (12/10/2023) Received from [facility] Patient History Smoking Tobacco [...] for requiring urgent evaluation. documented in this encounterCenterpoint Medical CenterAdrrsvkjcg18-58-1925 History of Present illness Narrative* SERGIO Iglesias [...] tablet daily ergocalciferol (Vitamin D2) 1.25 MG (10526 UT) capsule TAKE 1 CAPSULE BY MOUTH [...] for requiring urgent evaluation. documented in this encounterCenterpoint Medical CenterDkeylsfmou51-98-5543 History of Present illness Narrative* SERGIO Iglesias [...] tablet daily ergocalciferol (Vitamin D2) 1.25 MG (20914 UT) capsule TAKE 1 CAPSULE BY MOUTH [...] Use - Medium Risk (09/09/2023) Received from [facility] Patient History Smoking Tobacco [...] for requiring urgent evaluation. documented in this encounterCenterpoint Medical CenterTgioupqbzl86-96-1295 Hospital Discharge instructions* Discharge Instructions* Gladys Frias [...] medications unless otherwise instructed. [facility] History of Present illness Narrative* Gladys Frias RN - 06/30/2023 11:16 AM EDT Patient admitted, consent signed and questions answered. Patient ready for procedure. Call light toreach with side rails up 2 of 2. Bilateral groin clipped with chief underwriter and Gabrielle NGUYEN present. Salvador at bedside with patient. History and physical needs updated. documented in this [facility] Miscellaneous Notes* Telephone Encounter - Liat Camejo - 06/04/2023 2:58 PM EDT Substation Electrician Supervisor rec'd VM from Darlin in precert stating Dr. Moreno/Andre is out network with this patient insurance and procedure will not be covered, however, pt insurance covers LK FREEMAN. Substation Electrician Supervisor [facility] to see if they could see this patient and take over care, theyrequested all information be faxed to their office and they will reach out to patient. Substation Electrician Supervisor did notify patient we had to cx procedure and all upcoming appts, [facility], pt voices understanding and chief underwriter advised pt to call our office back if she has any problems getting established with another provider, pt voices understanding. documented in this encounterPaulding County HospitalSubtleData [id number] Telephone encounter Note* Telephone Encounter - Liat Camejo - 06/04/2023 2:58 PM EDT Substation Electrician Supervisor rec'd VM from Darlin in precert stating Dr. Moreno/Andre is out network with this patient insurance and procedure will not be covered, however, pt insurance covers LK FREEMAN. Substation Electrician Supervisor called over to [facility] Marking Stitcher/Onc regarding patient to see if they could see this patient and take over care, theyrequested all information be faxed to their office and they will reach out to patient. Substation Electrician Supervisor did notify patient we had to cx procedure and all upcoming appts, [facility], pt voices understanding and chief underwriter advised pt to call our office back if she has any problems getting established with another provider, pt voices understanding. [facility] [id number] History of Present illness Narrative* Edwin Moreno [...] Date Anxiety Arthritis Cellulitis Depression Diabetes mellitus ([facility]) Diabetes mellitus type 2, controlled ([facility]) Fibromyalgia, primary GERD (gastroesophageal reflux disease) Hyperlipidemia [...] recurrent major depressive disorder, without psychotic features ([facility]) Cellulitis of right lower extremity Endometrial cancer ([facility]) BMI 50.0-59.9, adult ([facility]) Plan: 1. The patient has [...] procedures Referring and communicating with other health point of care technician (not separately reported) Documenting clinical information in the electronic or other health record Edwin Moreno MD documented in this encounterOhio[facility] Evaluation note* Author Kaya [facility] Authored April 07, 2023 11:54am [...] for Bella CGM will be sent to [facility] to determine cost for CGM. Patient provided contact number for [facility]. If pt is unable to afford CGM, pt instructed to continue use of her personal meter. Pt to return in 2 weeks for download with clinical educator and in approximately 4 week follow up with provider. Encouraged to return for follow up visit. 45 minutes spent on education with Jodi DAIGLE, RN. [facility] Work Phone: [phone]) 151-711202-20-2024 Evaluation note* Author Kaya [facility] Authored April 07, 2023 11:54am [...] for Bella CGM will be sent to [facility] to determine cost for CGM. Patient provided contact number for [facility]. If pt is unable to afford CGM, pt instructed to continue use of her personal meter. Pt to return in 2 weeks for download with clinical educator and in approximately 4 week follow up with provider. Encouraged to return for follow up visit. 45 minutes spent on education with Jodi DAIGLE, RN. Author [facility] Authored May 11, 2023 1:1 8pm [...] have likely improved. Checking on CGM from [facility]-- processing 4 weeks ago, [...] of hypoglycemia, hyperglycemia, or diabetes medication issues. [facility] Work Phone: 1(376) 509-525112-19-2023 Evaluation note* Encounter Date Diagnosis Assessment Notes [...] of insulin. Patient deferred due to her nyu-uv-avgijs cost. We will retry in a couple [...] at goal of less than 130/80 Jan, ocean transportation intermediary current use of insulin (ICD-10 - Z79.4) Jan, BMI 50.0-59.9, adult (ICD-10 - Z68.43) [employer] Other 10-11-2023 Evaluation note* Encounter Date Diagnosis [...] Could also consider patient assistance with Rekha Marieor. We did have a conversation about her [...] of insulin. Patient deferred due to her stf-xo-edipae cost. We will retry in a couple [...] at goal of less than 130/80 Nov, ocean transportation intermediary current use of insulin (ICD-10 - Z79.4) Nov, BMI 50.0-59.9, adult (ICD-10 - Z68.43) [employer] Other 10-10-2023 Evaluation note* Encounter Date Diagnosis [...] Nov, Other chronic pain (ICD-10 - G89.29) [employer] Other 08-24-2023 Evaluation note* Encounter Date Diagnosis [...] of lumbar spinal fusion (ICD-10 - Z98.1) [employer] Other 08-18-2023 Evaluation note* Encounter Date Diagnosis [...] of insulin. Patient deferred due to her acj-qr-ggpfbj cost. We will retry in a couple [...] 143/88, goal of less than 130/80 Sep, senior living current use of insulin (ICD-10 - Z79.4) Sep, BMI 50.0-59.9, adult (ICD-10 - Z68.43) [employer] Other 06-27-2023 Evaluation note* Encounter Date Diagnosis Assessment Notes Treatment Notes Treatment Clinical Notes Jul, Lumbar radiculopathy (ICD-10 - M54.16) Independently reviewed the CT of the lumbar spine from 03/06/22, reviewed wmtq-ez-wbtk with patient which shows which shows multilevel degenerative changes with mild to moderate canal and foraminal narrowing at the L4-L5. Shows posterior mechanical fusion at the L1-S1 with posterior decompression at the L1-L3. Patient had physical therapy at [facility] and continues to do the home physical therapy without improvement. Will order xray lumbar 6 view to rule out any spondylolisthesis. Will order MRI to rule out any cord compression. Will get release of information from pain management Dr. Cook and [facility] physical therapy for continuity of care.Will order Aqua therapy. OARRS reviewed. pharmacological management reviewed, will continue with current prescriptions as prescribed. Will add lidocaine patch and xmgr-duj-cofhsvq Thermo patch. Will follow-up in 8 weeks [...] rule out osteoporosis Jul, Other OARRS reveiwed [employer] Other 06-16-2023 Evaluation note* Encounter Date Diagnosis [...] of insulin. Patient deferred due to her eby-ju-dkqurl cost. We will retry in a couple [...] Instructions material was published to portal Jul, senior living current use of insulin (ICD-10 - Z79.4) Jul, BMI 50.0-59.9, adult (ICD-10 - Z68.43) [employer] Other 04-21-2023 Evaluation note* Encounter Date Diagnosis [...] Instructions material was published to portal May, senior living current use of insulin (ICD-10 - Z79.4) May, BMI 50.0-59.9, adult (ICD-10 - Z68.43) May, Other Expect improvement with escalation of Ozempic to 2.0 mg subcu daily. Weight up today without decrease in insulin needs, no increases satiety The patient was given a Dexcom G6 sample and loaned an Office owned Dexcom G6 Vocational Teacher. The sensor was placed on the back of her right arm by this educator. The patient was shown how to unlock the industrial pipefitter journeyman and read her BG. 15 minutes were spent placing the sensor and educating the patient by Lit Dixon RN, [facility] . [place] [employer] Other 03-30-2023 NoteCONSULTATION CONSULTATION DATE: 05/15/2022 TO: [...] of the iliohypogastric nerve under fluoroscopic guidance.[facility] HospitalVynikgrx37-93-9386 Evaluation note* Encounter Date Diagnosis Assessment Notes [...] Instructions material was published to portal Feb, senior living current use of insulin (ICD-10 - Z79.4) Feb, BMI 45.0-49.9, adult (ICD-10 - Z68.42) Expect improvement with escalation of Ozempic to 2.0 mg subcu daily. Weight up today without decrease in insulin needs, no increases satiety [employer] Other 12-29-2022 NoteCONSULTATION CONSULTATION DATE: 02/13/2022 HISTORY [...] is able to walk unassisted. Medications include Elberta 5/325 t.i.d., baclofen 10 mg q.h. s., [...] b.i.d. A referral will be sent to . [place] to Dr. Moses Goetz for evaluation and patient is in complete agreement with this. We will continue to maintain her medications at this time, which will include Lyrica, Elberta and baclofen. We will see the patient in three months' time, unless otherwise indicated. Patient was asked to call the office with an update once she has seen Neurosurgery.[facility] 12-31-2021 Evaluation note* Encounter Date Diagnosis Assessment Notes Treatment Notes Treatment Clinical Notes Dec, Type 2 diabetes mellitus with hyperglycemia (ICD-10 - E11.65) [employer] Other 09-21-2022 NoteCONSULTATION CONSULTATION DATE: 11/06/2021 HISTORY [...] secondary to her pain. Current medications include Elberta 5/325 t.i.d., baclofen 10 mg q.h.s., Pamelor [...] indicated, and patient agrees with this plan.[id number]* Encounter Date Diagnosis Assessment Notes [...] Instructions material was published to portal Oct, [employer] current use of insulin (ICD-10 - Z79.4) Oct, BMI 45.0-49.9, adult (ICD-10 - Z68.42) Expect improvement with escalation of Ozempic to 2.0 mg subcu daily. Weight slightly improving. hopeful for continue reduction to increase insulin sensitivity and decrease insulin needs. [employer] Other 06-16-2022 NoteCONSULTATION CONSULTATION DATE: 08/01/2021 HISTORY [...] burn but manageable. Her current medications are Elberta 5/325 t.i.d., baclofen 10 mg q.h.s. and [...] move forward with aqua therapy at the [place] location. I did discuss vitamins with her as well as nutrition importance. Patient will be seen at the clinic in three months' time unless otherwise indicated. [facility] Signed and Approved by: ALICIA HERNANDEZ . 08/14/2021 16:24:00[facility]05-23-2022 Evaluation note* Encounter Date Diagnosis Assessment Notes Treatment Notes Treatment Clinical Notes June, Type 2 diabetes mellitus with hyperglycemia (ICD-10 - E11.65) [employer] Other [id number] Evaluation note* Encounter Date Diagnosis Assessment Notes [...] Instructions material was published to portal June, [employer] current use of insulin (ICD-10 - Z79.4) June, BMI 45.0-49.9, adult (ICD-10 - Z68.42) Expect improvement with escalation of Ozempic to 2.0 mg subcu daily. [employer] Other 10-06-2021 Evaluation note* Encounter Date Diagnosis [...] Prescriptions: None needed at this time. Nov, [employer] current use of insulin (ICD-10 - Z79.4) [...] About Vitamin D material was published to [employer] Other Evaluation noteNo InformationNort [employer] Other Evaluation noteNo assessment information available [facility] Work Phone: Evaluation note* Diagnosis Onset Date Resolution Status Type 2 diabetes mellitus with hyperglycemia acute [facility] Work Phone: Evaluation note* Diagnosis Abnormal stress test Other nonspecific abnormal cardiovascular system function study documented [facility] this [facility] Diagnosis Onset Date Resolution Status Hyperlipemia acute Hypertension acute Type 2 diabetes mellitus with hyperglycemia acute [facility] Work Phone: Evaluation note* Diagnosis Acute pain of left knee- Primary History of left knee replacement Left hip pain Pain in joint, pelvic region and thigh documented in this encounter [facility] HealthcareEvaluation note* Diagnosis Wellness examination- Primary Encounter for screening mammogram for malignant neoplasm of breast Heart murmur, systolic Preoperative clearance Unspecified pre-operative examination Primary hypertension (CMS/HCC) Unspecified essential hypertension BMI 50.0-59.9, adult (CMS/HCC) Mixed hyperlipidemia (CMS/HCC) Mixed hyperlipidemia Recurrent major depressive disorder, in partial remission (HCC) (CMS/HCC) Type 2 diabetes mellitus with hyperglycemia, with long-term current use of insulin (CMS/HCC) Primary hypertension (CMS/HCC) Unspecified essential hypertension documented in this encounter [facility] HealthcareEvaluation note* Diagnosis Wellness examination- [...] use of insulin (CMS/HCC) Acute pain of left knee- Primary History of left knee replacement documented in this encounter [facility] HealthcareEvaluation note* Diagnosis Onset Date Resolution Status Admit Date Dietary counseling and surveillance acute December 29, 2 024 9:39am Encounter for long-term (current) insulin use acute December 172023 9:39am Hyperlipemia acute December h2023 9:39am Hypertension acute December h2023 9:39am Type 2 diabetes mellitus wit h hyperglycemia acute December 29, 2 024 9:39am Vitamin D deficiency, unspecified acute December 29, 024 9:39am [facility] Work Phone: Evaluation note* Diagnosis Wellness examination- Primary Encounter for screening mammogram for malignant neoplasm of breast Heart murmur, systolic Preoperative clearance Unspecified pre-operative examination Primary hypertension (CMS/HCC) Unspecified essential hypertension BMI 50.0-59.9, adult (CMS/HCC) Mixed hyperlipidemia (CMS/HCC) Mixed hyperlipidemia Recurrent major depressive disorder, in partial remission (HCC) (CMS/HCC) Type 2 diabetes mellitus with hyperglycemia, with long-term current use of insulin ([facility]/HCC) Acute pain of right shoulder- Primary Arthritis of right acromioclavicular joint [facility]* Diagnosis Wellness examination- Primary Encounter for screening mammogram for malignant neoplasm of breast Heart murmur, systolic Preoperative clearance Unspecified pre-operative examination Primary hypertension (CMS/HCC) Unspecified essential hypertension BMI 50.0-59.9, adult (CMS/HCC) Mixed hyperlipidemia (CMS/HCC) Mixed hyperlipidemia Recurrent major depressive disorder, in partial remission (HCC) ([facility]/HCC) Type 2 diabetes mellitus with hyperglycemia, with long-term current use of insulin ([facility]/HCC) Bronchitis- Primary Bronchitis, not specified as acute or chronic 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) Wheezing documented [facility]* Diagnosis Wellness examination- Primary Encounter for screening mammogram for malignant neoplasm of breast Heart murmur, systolic Preoperative clearance Unspecified pre-operative examination Primary hypertension (CMS/HCC) Unspecified essential hypertension BMI 50.0-59.9, adult (CMS/HCC) Mixed hyperlipidemia (CMS/HCC) Mixed hyperlipidemia Recurrent major depressive disorder, in partial remission (HCC) ([facility]/HCC) Type 2 diabetes mellitus with hyperglycemia, with long-term current use of insulin ([facility]/HCC) Acute pain of right shoulder- Primary Arthritis of right acromioclavicular joint Internal derangement of right shoulder History of claustrophobia documented in [facility]* Diagnosis Wellness examination- Primary Encounter for screening mammogram for malignant neoplasm of breast Heart murmur, systolic Preoperative clearance Unspecified pre-operative examination Primary hypertension ([facility]) Unspecified essential hypertension BMI 50.0-59.9, adult ([facility]) Mixed hyperlipidemia ([facility]) Mixed hyperlipidemia Recurrent major depressive disorder, in partial remission (HCC) ([facility]) Type 2 diabetes mellitus with hyperglycemia, with long-term current use of insulin ([facility]) Type 2 diabetes mellitus with diabetic mononeuropathy, with long-term current use of insulin ([facility])- Primary Left leg cellulitis Morbid (severe) obesity due to excess calories ([facility]) Body mass index (BMI) 50.0-59.9, adult ([facility]) Type 2 diabetes mellitus with other skin complications ([facility]) Bipolar disorder, unspecified ([facility]) Bipolar disorder, unspecified documented [facility]* Diagnosis Wellness examination- Primary Encounter for screening mammogram for malignant neoplasm of breast Heart murmur, systolic Preoperative clearance Unspecified pre-operative examination Primary hypertension ([facility]) Unspecified essential hypertension BMI 50.0-59.9, adult ([facility]) Mixed hyperlipidemia ([facility]) Mixed hyperlipidemia Recurrent major depressive disorder, in partial remission (HCC) ([facility]) Type 2 diabetes mellitus with hyperglycemia, with long-term current use of insulin ([facility]) History of claustrophobia- Primary documented in [facility]* Diagnosis Wellness examination- Primary Encounter for screening mammogram for malignant neoplasm of breast Heart murmur, systolic Preoperative clearance Unspecified pre-operative examination Primary hypertension ([facility]) Unspecified essential hypertension BMI 50.0-59.9, adult ([facility]) Mixed hyperlipidemia ([facility]) Mixed hyperlipidemia Recurrent major depressive disorder, in partial remission (HCC) ([facility]) Type 2 diabetes mellitus with hyperglycemia, with long-term current use of insulin ([facility]) Left leg cellulitis- Primary Type 2 diabetes mellitus with diabetic mononeuropathy, with long-term current use of insulin ([facility]) Skin rash Rash and other nonspecific skin eruption Opioid dependence, uncomplicated ([facility]) documented in [facility]* Diagnosis Wellness examination- Primary Encounter for screening mammogram for malignant neoplasm of breast Heart murmur, systolic Preoperative clearance Unspecified pre-operative examination Primary hypertension ([facility]) Unspecified essential hypertension BMI 50.0-59.9, adult ([facility]) Mixed hyperlipidemia ([facility]/HCC) Mixed hyperlipidemia Recurrent major depressive disorder, in partial remission (HCC) ([facility]) Type 2 diabetes mellitus with hyperglycemia, with long-term current use of insulin ([facility] Mixed hyperlipidemia ([facility]) Mixed hyperlipidemia documented in this encounter [facility] HealthcareEvaluation note* Diagnosis Wellness examination- Primary Encounter for screening mammogram for malignant neoplasm of breast Heart murmur, systolic Preoperative clearance Unspecified pre-operative examination Primary hypertension ([facility]) Unspecified essential hypertension BMI 50.0-59.9, adult ([facility]) Mixed hyperlipidemia ([facility]) Mixed hyperlipidemia Recurrent major depressive disorder, in partial remission (HCC) ([facility]) Type 2 diabetes mellitus with hyperglycemia, with long-term current use of insulin ([facility]) Acute pain of right shoulder- Primary Arthritis of right acromioclavicular joint Biceps tendinitis, right documented in this encounter [facility] HealthcareEvaluation note* Diagnosis Wellness examination- Primary Encounter for screening mammogram for malignant neoplasm of breast Heart murmur, systolic Preoperative clearance Unspecified pre-operative examination Primary hypertension ([facility]) Unspecified essential hypertension BMI 50.0-59.9, adult ([facility]) Mixed hyperlipidemia ([facility]) Mixed hyperlipidemia Recurrent major depressive disorder, in partial remission (HCC) ([facility]) Type 2 diabetes mellitus with hyperglycemia, with long-term current use of insulin ([facility]) Biceps tendinitis, right- Primary Impingement of right shoulder documented in this encounter [facility] HealthcareEvaluation note* Diagnosis Endometrial cancer ([facility])- Primary Malignant neoplasm of corpus uteri, except isthmus BMI 50.0-59.9, adult ([facility]) [facility] Diagnosis Wellness examination- Primary Encounter for screening mammogram for malignant neoplasm of breast Heart murmur, systolic Preoperative clearance Unspecified pre-operative examination Primary hypertension ([facility]) Unspecified essential hypertension BMI 50.0-59.9, adult ([facility]/HCC) Mixed hyperlipidemia ([facility]) Mixed hyperlipidemia Recurrent major depressive disorder, in partial remission (HCC) ([facility]) Type 2 diabetes mellitus with hyperglycemia, with long-term current use of insulin ([facility]) Type 2 diabetes mellitus with diabetic mononeuropathy, with long-term current use of insulin ([facility])- Primary SOB (shortness of breath) Shortness of breath Wheezing Poorly-controlled hypertension ([facility]) documented in [facility]* Diagnosis Wellness examination- Primary Encounter for screening mammogram for malignant neoplasm of breast Heart murmur, systolic Preoperative clearance Unspecified pre-operative examination Primary hypertension ([facility]/HCC) Unspecified essential hypertension BMI 50.0-59.9, adult ([facility]/HCC) Mixed hyperlipidemia ([facility]/HCC) Mixed hyperlipidemia Recurrent major depressive disorder, in partial remission (HCC) ([facility]) Type 2 diabetes mellitus with hyperglycemia, with long-term current use of insulin ([facility]) Acute non-recurrent pansinusitis- Primary documented in this encounter [facility] HealthcareEvaluation note* Diagnosis Wellness examination- Primary Encounter for screening mammogram for malignant neoplasm of breast Heart murmur, systolic Preoperative clearance Unspecified pre-operative examination Primary hypertension ([facility]) Unspecified essential hypertension BMI 50.0-59.9, adult ([facility]/HCC) Mixed hyperlipidemia ([facility]/HCC) Mixed hyperlipidemia Recurrent major depressive disorder, in partial remission (HCC) ([facility]) Type 2 diabetes mellitus with hyperglycemia, with long-term current use of insulin ([facility]) Acute pain of right shoulder- Primary Arthritis of right acromioclavicular joint Biceps tendinitis, right Partial nontraumatic tear of rotator cuff, right documented in this encounter [facility] HealthcareEvaluation note* Diagnosis Wellness examination- Primary Encounter for screening mammogram for malignant neoplasm of breast Heart murmur, systolic Preoperative clearance Unspecified pre-operative examination Primary hypertension ([facility]) Unspecified essential hypertension BMI 50.0-59.9, adult ([facility]) Mixed hyperlipidemia ([facility]/HCC) Mixed hyperlipidemia Recurrent major depressive disorder, in partial remission (HCC) ([facility]) Type 2 diabetes mellitus with hyperglycemia, with long-term current use of insulin ([facility]) Bursitis of left foot- Primary Acquired keratoderma Pain in left foot Pain in soft tissues of limb Difficulty walking Difficulty in walking documented in this encounter [facility] HealthcareEvaluation [facility]* Diagnosis Onset Date Resolution Status Admit Date Dietary counseling and surveillance acute May 25, 2024 9:32am Encounter for long-term (cur rent) insulin use acute May 25, 2024 9:32am Hyperlipemia acute May 25, 2 025 9:32am Hypertension acute May 25, 2 025 9:32am Type 2 diabetes mellitus wit h hyperglycemia acute May 25, 2024 9:32am Vitamin D deficiency, unspecified [place] May 25, 2024 9:32am [facility] Work Phone: Evaluation note* Diagnosis Wellness [...] Pre-op examination- Primary documented in this encounter [facility]* Diagnosis Wellness examination- Primary Encounter for screening mammogram for malignant neoplasm of breast Heart murmur, systolic Preoperative clearance Unspecified pre-operative examination Primary hypertension (CMS/HCC) Unspecified essential hypertension BMI 50.0-59.9, adult (CMS/HCC) Mixed hyperlipidemia (CMS/HCC) Mixed hyperlipidemia Recurrent major depressive disorder, in partial remission (HCC) (CMS/HCC) Type 2 diabetes mellitus with hyperglycemia, with long-term current use of insulin (CMS/HCC) Acute laryngitis- Primary documented in this encounter [facility] [...] with long-term current use of insulin (CMS/HCC) Nonrheumatic aortic valve stenosis- Primary Arthritis of left acromioclavicular joint Preoperative clearance Unspecified pre-operative examination Primary hypertension (CMS/HCC) Unspecified essential hypertension Malignant neoplasm of endometrium (CMS/HCC) Malignant neoplasm of corpus uteri, except isthmus Stage 3a chronic kidney disease (HCC) (CMS/HCC) BMI 50.0-59.9, adult ([facility]) documented in [facility]* Diagnosis Wellness examination- Primary Encounter for screening mammogram for malignant neoplasm of breast Heart murmur, systolic Preoperative clearance Unspecified pre-operative examination Primary hypertension ([facility]) Unspecified essential hypertension BMI 50.0-59.9, adult ([facility]) Mixed hyperlipidemia ([facility]) Mixed hyperlipidemia Recurrent major depressive disorder, in partial remission (HCC) ([facility]) Type 2 diabetes mellitus with hyperglycemia, with long-term current use of insulin ([facility]) Primary hypertension ([facility]) Unspecified essential hypertension documented in [facility]* Diagnosis Wellness examination- Primary Encounter for screening mammogram for malignant neoplasm of breast Heart murmur, systolic Preoperative clearance Unspecified pre-operative examination Primary hypertension ([facility]) Unspecified essential hypertension BMI 50.0-59.9, adult ([facility]) Mixed hyperlipidemia ([facility]) Mixed hyperlipidemia Recurrent major depressive disorder, in partial remission (HCC) ([facility]) Type 2 diabetes mellitus with hyperglycemia, with long-term current use of insulin ([facility]) S/P arthroscopy of right shoulder- Primary documented in [facility]* Diagnosis Wellness examination- Primary Encounter for screening mammogram for malignant neoplasm of breast Heart murmur, systolic Preoperative clearance Unspecified pre-operative examination Primary hypertension ([facility]) Unspecified essential hypertension BMI 50.0-59.9, adult ([facility]) Mixed hyperlipidemia ([facility]) Mixed hyperlipidemia Recurrent major depressive disorder, in partial remission (HCC) ([facility]) Type 2 diabetes mellitus with hyperglycemia, with long-term current use of insulin ([facility]) S/P arthroscopy of right shoulder- Primary documented in [facility]* Diagnosis Wellness examination- Primary Encounter for screening mammogram for malignant neoplasm of breast Heart murmur, systolic Preoperative clearance Unspecified pre-operative examination Primary hypertension Unspecified essential hypertension BMI 50.0-59.9, adult ([facility] Mixed hyperlipidemia Mixed hyperlipidemia Recurrent major depressive disorder, in partial remission Type 2 diabetes mellitus with hyperglycemia, with long-term current use of insulin ([facility]) Acute pain of right shoulder- Primary Acute pain of right knee Primary hypertension Unspecified essential hypertension documented in this encounter [facility]* Diagnosis Wellness examination- Primary Encounter for screening mammogram for malignant neoplasm of breast Heart murmur, systolic Preoperative clearance Unspecified pre-operative examination Primary hypertension Unspecified essential hypertension BMI 50.0-59.9, adult ([facility]) Mixed hyperlipidemia Mixed hyperlipidemia Recurrent major depressive disorder, in partial remission Type 2 diabetes mellitus with hyperglycemia, with long-term current use of insulin ([facility]) S/P arthroscopy of right shoulder- Primary documented in this encounter [facility] HealthcareEvaluation [facility]* Diagnosis Wellness examination- Primary Encounter for screening mammogram for malignant neoplasm of breast Heart murmur, systolic Preoperative clearance Unspecified pre-operative examination Primary hypertension Unspecified essential hypertension BMI 50.0-59.9, adult ([facility]) Mixed hyperlipidemia Mixed hyperlipidemia Recurrent major depressive disorder, in partial remission Type 2 diabetes mellitus with hyperglycemia, with long-term current use of insulin ([facility]) Encounter for wellness examination- Primary Primary hypertension Unspecified essential hypertension Type 2 diabetes mellitus with hyperglycemia, with long-term current use of insulin ([facility]) History of uterine cancer Personal history of malignant neoplasm of other parts of uterus Morbid obesity ([facility]) Morbid obesity Mixed hyperlipidemia Mixed hyperlipidemia Encounter for screening mammogram for malignant neoplasm of breast Encounter for immunization Left hip pain Pain in joint, pelvic region and thigh Recurrent major depressive disorder, in partial remission senior living (current) use of insulin ([facility]) Chronic kidney disease, stage 2 (mild) Chronic pain disorder Chronic pain syndrome documented in this encounter [facility] HealthcareEvaluation note* Diagnosis Wellness examination- Primary Encounter for screening mammogram for malignant neoplasm of breast Heart murmur, systolic Preoperative clearance Unspecified pre-operative examination Primary hypertension Unspecified essential hypertension BMI 50.0-59.9, adult ([facility]) Mixed hyperlipidemia Mixed hyperlipidemia Recurrent major depressive disorder, in partial remission Type 2 diabetes mellitus with hyperglycemia, with long-term current use of insulin ([facility]) Encounter for wellness examination- Primary Primary hypertension Unspecified essential hypertension Type 2 diabetes mellitus with hyperglycemia, with long-term current use of insulin ([facility]) History of uterine cancer Personal history of malignant neoplasm of other parts of uterus Morbid obesity ([facility]) Morbid obesity Mixed hyperlipidemia Mixed hyperlipidemia Encounter for screening mammogram for malignant neoplasm of breast Encounter for immunization Left hip pain Pain in joint, pelvic region and thigh Recurrent major depressive disorder, in partial remission senior living (current) use of insulin ([facility]) Chronic kidney disease, stage 2 (mild) Chronic pain disorder Chronic pain syndrome Left leg cellulitis- Primary documented in this encounter [facility] HealthcareEvaluation note* Diagnosis Wellness examination- Primary Encounter for screening mammogram for malignant neoplasm of breast Heart murmur, systolic Preoperative clearance Unspecified pre-operative examination Primary hypertension Unspecified essential hypertension BMI 50.0-59.9, adult ([facility]) Mixed hyperlipidemia Mixed hyperlipidemia Recurrent major depressive disorder, in partial remission Type 2 diabetes mellitus with hyperglycemia, with long-term current use of insulin ([facility]) Encounter for wellness examination- Primary Primary hypertension Unspecified essential hypertension Type 2 diabetes mellitus with hyperglycemia, with long-term current use of insulin ([facility]) History of uterine cancer Personal history of malignant neoplasm of other parts of uterus Morbid obesity ([facility]) Morbid obesity Mixed hyperlipidemia Mixed hyperlipidemia Encounter for screening mammogram for malignant neoplasm of breast Encounter for immunization Left hip pain Pain in joint, pelvic region and thigh Recurrent major depressive disorder, in partial remission [employer] (current) use of insulin ([facility]) Chronic kidney disease, stage 2 (mild) Chronic pain disorder Chronic pain syndrome Acute left-sided low back pain with left-sided sciatica- [facility] - [facility] Type Description Date Medical History RSD Medical History fibromyalgia Medical History hypertension Medical History type II diabetes Surgical History C section X3 Surgical History rotator cuff tear repair Surgical History back surgery x3 Surgical History knee surgery Surgical History hysteroscopy 05/30 Surgical History c5-c6 plates & screws Surgical History D&C 05/30 Hospitalization History see above [employer] Other [employer] general Narrative - Reported* Type Description Date [...] replacement, Left 12/2020 Hospitalization History see above [employer] Other [employer] general Narrative - Reported* Type Description Date Medical History fibromyalgia Medical History hypertension Medical History type II diabetes Surgical History C section X3 Surgical History rotator cuff tear repair Surgical History back surgery x3 Surgical History knee surgery Surgical History hysteroscopy 14 Surgical History c5-c6 plates & screws Surgical History D&C 4/14 Surgical History knee replacement, Left 12/2020 Hospitalization History see above [employer] Other History general Narrative - Reported* Type [...] bilatera l 2021 Hospitalization History see above [employer] Other History general Narrative - Reported* Type [...] Hospitalization History see above Hospitalization History [facility] [place]- Flu 02/2022 [employer] Other History general Narrative - Reported* Type [...] Hospitalization History see above Hospitalization History [facility] [place]- Flu 02/2022 [employer] Other History general Narrative - [employer] Other InstructionsNot on filedocumented in this encounter [facility] filedocumented in [facility] Narrative* Consultation (Routine) - Authorized Specialty Diagnoses / Procedures Referred By Alok carson Referred To Contact Physical Therapy Diagnoses Biceps tendinitis, right Procedures NM [facility]ICE[facility] MDM 60 MINUTES Jr. Rica Rodriguez DO [address] [place] [address] Phone: tel: fax: Sean Tineo, PT [address] [place] [address] Phone: tel: fax: Referral ID Status Reason Start Date Expiration Date Visits Requested Visits Authorized [id number] Authorized Consult and Treat 03/16/2024 09/12/2024 6 [...] 1 BMI 50.0-59.9, adult (Z68.43) Referral Organization [facility] Referring Provider First Name Martine Referring Provider Last Name Barto Referring Provider Specialty Nurse Pract itioner Referred Organization [facility] Referred Address [phone] Referred Provider Specialty Neurology Referral Priority Routine Reason evaluate and treat - tremors Diagnosis 1 BMI 50.0-59.9, adult (Z68.43) Referral Organization [facility] Referring Provider First Name Martine Referring Provider Last Name Tobias Referring Provider Specialty Nurse Pract itioner Referred Organization [facility] Referred Address [address],[phone] Referred Provider Specialty Neurology Referral Priority Routine Reason Evaluate and treat - osteoporosis Diagnosis 1 BMI 50.0-59.9, adult (Z68.43) Referral Organization [facility] Referring Provider First Name Martine Referring Provider Last Name Jatinder Referring Provider Specialty Nurse Pract itioner Referred Organization [facility] Referred Provider Jnenifer Siu Referred Address [address] [place], [place],[address] Referred Provider Specialty Nurse Practi tioner Referral Priority Routine Additional Source Comments INFORMATION SOURCE (unrecogn ized section and content) DATE CREATED AUTHOR 08/12/2017 [facility] DATE CREATED AUTHOR AUTHOR'S ORGANIZ ATION 07/02/2022 [facility] DATE CREATED AUTHOR AUTHOR'S ORGANIZ ATION 05/31/2023 [facility] DATE CREATED AUTHOR AUTHOR'S ORGANIZ ATION 06/04/2023 [facility] DATE CREATED AUTHOR AUTHOR'S ORGANIZ ATION 06/30/2023 [facility] DATE CREATED AUTHOR AUTHOR'S ORGANIZ ATION 04/12/2024 [facility] DATE CREATED AUTHOR AUTHOR'S ORGANIZ ATION 05/29/2024 [facility] DATE CREATED AUTHOR AUTHOR'S ORGANIZ ATION 06/25/2024 [facility] DATE CREATED AUTHOR AUTHOR'S ORGANIZ ATION 09/09/2024 [facility] DATE CREATED AUTHOR AUTHOR'S ORGANIZ ATION 09/27/2024 [facility] Special[facility] EPIC REASON FOR VISIT (unrecogniz ed section and content) Specialty Diagnoses / Procedures Referred By Alok carson Referred To Contact Diagnoses Abnormal stress test Abnormal stress test [R94.39] Procedures NM CATH PLMT L HRT & ARTS W/NJX & ANGIO IMG S&I NM CATH PLMT L HRT & ARTS W/NJX & ANGIO IMG S&I Left heart [place] [id number] [facility] [address] [place] [address] [facility] [address] [place] [address] Referral ID Status Reason Start Date Expiration Date Visits Re quested Visits Authorized [id number] 1 1 Reason Comments Pain Reason Onset [...] callus pain. /BS 103 A1C 9.7 (01/2025)Dr. Cabrera/Yoly 04/12/2024 SS 9 Reason Comments Pre-op Exam Reason Onset Date Comments Med Refill 06/16/2024 Reason Comments Post-op Reason Comments Knee Injury Reason Comments Leg Pain Hip Pain Medicare Annual Wellness Visit Subsequen t Reason Comments ER Follow-up Reason Comments Back Pain Care Teams (unrecognized sec tion and content) [...] Active Start: 2023 End: May 22, 2023 Technical Services Rep Relationship Specialty Start Date End Date Pastora Kohler APRN - [facility] [address] [place] [address] PCP - General Nurse Practitioner [facility] 06/15/23 Team Status: Active Member Role [...] September 23, 2023 End: September 23, 2023 Technical Services Rep Relationship Specialty Start Date End Date Jennifer Cabrera MD [address] [place] [address] PCP - General Family Medicine 04/10/23 Pastora Kohler ADMINISTRATIVE PROCESSOR [address] [place] [address] PCP - [facility] 02/16/23 03/18/80 Pastora Kohler ADMINISTRATIVE PROCESSOR [address] [place] [address] Nurse Practitioner Family Medicine 04/10/23 Technical Services Rep Relationship Specialty Start Date End Date Jennifer Cabrera MD [address] [place] [address] PCP - General Family Medicine 04/10/23 Pastora Kohler NP [address] [place] [address] PCP - [facility] 02/16/23 03/18/80 Pastora Kohler NP [address] [place] [address] Nurse Practitioner Family Medicine 04/10/23 Technical Services Rep Relationship Specialty Start Date End Date Jennifer Cabrera MD [address] [place] [address] PCP - General Family Medicine 04/10/23 Pastora Kohler ADMINISTRATIVE PROCESSOR [address] [place] [address] PCP - [facility] 02/16/23 03/18/80 Pastora Kohler NP [address] [place] [address] Nurse Practitioner Family Medicine 04/10/23 Technical Services Rep Relationship Specialty Start Date End Date Jennifer Cabrera MD [address] [place] [address] PCP - General Family Medicine 04/10/23 Pastora Kohler NP [address] [place] [address] PCP - [facility] 02/16/23 03/18/80 Pastora Kohler NP [address] [place] [address] Nurse Practitioner Family Medicine 04/10/23 Technical Services Rep Relationship Specialty Start Date End Date Jennifer Cabrera MD [address] [place] [address] PCP - General Family Medicine 04/10/23 Pastora Kohler NP [address] [place] [address] PCP - [facility] 02/16/23 03/18/80 Pastora Kohler NP [address] [place] [address] Nurse Practitioner Family Medicine 04/10/23 Team Status: [...] December 30, 2023 End: December 30, 2023 Technical Services Rep Relationship Specialty Start Date End Date Jennifer Cabrera MD [address] [place] [address] PCP - General Family Medicine 04/10/23 Pastora Kohler NP [address] [place] [address] PCP - [facility] 02/16/23 03/18/80 Pastora Kohler NP [address] [place] [address] Nurse Practitioner Family Medicine 04/10/23 Technical Services Rep Relationship Specialty Start Date End Date Jennifer Cabrera MD [address] [place] [address] PCP - General Family Medicine 04/10/23 Pastora Kohler NP [address] [place] [address] PCP - [facility] 02/16/23 03/18/80 Pastora Kohler NP [address] [place] [address] Nurse Practitioner Family Medicine 04/10/23 Technical Services Rep Relationship Specialty Start Date End Date Jennifer Cabrera MD [address] [place] [address] PCP - General Family Medicine 04/10/23 Pastora Kohler NP [address] [place] [address] PCP - [facility] 02/16/23 03/18/80 Pastora Kohler NP [address] [place] [address] Nurse Practitioner Family Medicine 04/10/23 Technical Services Rep Relationship Specialty Start Date End Date Jennifer Cabrera MD [address] [place] [address] PCP - General Family Medicine 04/10/23 Pastora Kohler NP [address] [place] [address] PCP - [facility] 02/16/23 03/18/80 Pastora Kohler NP [address] [place] [address] Nurse Practitioner Family Medicine 04/10/23 Technical Services Rep Relationship Specialty Start Date End Date Jennifer Cabrera MD [address] [place] [address] PCP - General Family Medicine 04/10/23 Pastora Kohler NP [address] [place] [address] PCP - [facility] 02/16/23 03/18/80 Pastora Kohler NP [address] [place] [address] Nurse Practitioner Family Medicine 04/10/23 Technical Services Rep Relationship Specialty Start Date End Date Jennifer Cabrera MD [address] [place] [address] PCP - General Family Medicine 04/10/23 Pastora Kohler ADMINISTRATIVE PROCESSOR [address] [place] [address] PCP - [facility] 02/16/23 03/18/80 Pastora Kohler NP [address] [place] [address] Nurse Practitioner Family Medicine 04/10/23 Technical Services Rep Relationship Specialty Start Date End Date Jennifer Cabrera MD [address] [place] [address] PCP - General Family Medicine 04/10/23 Pastora Kohler NP [address] [facility] [place] [address] PCP - [facility] 02/16/23 03/18/80 Pastora Kohler NP [address] [facility] [place] [address] Nurse Practitioner Family Medicine 04/10/23 Technical Services Rep Relationship Specialty Start Date End Date Jennifer Cabrera MD [address] [place] [address] PCP - General Family Medicine 04/10/23 Pastora Kohler NP [address] [facility] [place] [address] PCP - [facility] 02/16/23 03/18/80 Pastora Kohler NP [address] [facility] [place] [address] Nurse Practitioner Family Medicine 04/10/23 Team Status: [...] March 10, 2024 End: March 10, 2024 Technical Services Rep Relationship Specialty Start Date End Date Jennifer Cabrera MD [address] [place] [address] PCP - General Family Medicine 04/10/23 Pastora Kohler NP [address] [place] [address] PCP - [facility] 02/16/23 03/18/80 Pastora Kohler NP [address] [place] [address] Nurse Practitioner Family Medicine 04/10/23 Technical Services Rep Relationship Specialty Start Date End Date Jennifer Cabrera MD [address] [place] [address] PCP - General Family Medicine 04/10/23 Pastora Kohler NP [address] [place] [address] PCP - [facility] 02/16/23 03/18/80 Pastora Kohler NP [address] [place] [address] Nurse Practitioner Family Medicine 04/10/23 Technical Services Rep Relationship Specialty Start Date End Date Jennifer Cabrera MD [address] [place] [address] PCP - General Family Medicine 04/10/23 Pastora Kohler NP [address] [place] [address] PCP - [facility] 02/16/23 03/18/80 Pastora Kohler NP [address] [place] [address] Nurse Practitioner Family Medicine 04/10/23 Technical Services Rep Relationship Specialty Start Date End Date Judith Patel JoellenDO [address] [place] [address] PCP - General Family Medicine 02/19/22 Technical Services Rep Relationship Specialty Start Date End Date Judith Patel DO [address] [place] [address] PCP - General Family Medicine 02/19/22 Technical Services Rep Relationship Specialty Start Date End Date Jennifer Cabrera MD [address] [facility] [place] [address] PCP - General Family Medicine 04/10/23 Pastora Kohler NP [address] [facility] [place] [address] PCP - [facility] 02/16/23 03/18/80 Pastora Kohler NP [address] [facility] [place] [address] Nurse Practitioner Family Medicine 04/10/23 Technical Services Rep Relationship Specialty Start Date End Date Jennifer Cabrera MD [address] [facility] [place] [address] PCP - General Family Medicine 04/10/23 Pastora Kohler NP [address] [place] [address] PCP - [facility] 02/16/23 03/18/80 Pastora Kohler NP [address] [facility] [place] [address] Nurse Practitioner Family Medicine 04/10/23 Technical Services Rep Relationship Specialty Start Date End Date Jennifer Cabrera MD [address] [place] [address] PCP - General Family Medicine 04/10/23 Pastora Kohler NP [address] [place] [address] PCP - [facility] 02/16/23 03/18/80 Pastora Kohler NP [address] [place] [address] Nurse Practitioner Family Medicine 04/10/23 Technical Services Rep Relationship Specialty Start Date End Date Jennifer Cabrera MD [address] [place] [address] PCP - General Family Medicine 04/10/23 Pastora Kohler NP [address] [place] [address] PCP - [facility] 02/16/23 03/18/80 Pastora Kohler NP [address] [place] [address] Nurse Practitioner Family Medicine 04/10/23 Technical Services Rep Relationship Specialty Start Date End Date Jennifer Cabrera MD [address] [place] [address] PCP - General Family Medicine 04/10/23 Pastora Kohler NP [address] [place] [address] PCP - [facility] 02/16/23 03/18/80 Pastora Kohler NP [address] [place] [address] Nurse Practitioner Family Medicine 04/10/23 Team Status: Inactive Member Role Status Dates Pastora Kohler NP-C Primary Care Provider Activ e Start: May 25, 2024 End: May 25, 2024 Lili Burgos APRN Attending Provider Active Start: May 25, 2024 End: May 25, 2024 Team Status: Inactive Member Role Status Dates Lili Burgos APRN Attending Provider Active Start: May 25, 2024 End: May 25, 2024 Technical Services Rep Relationship Specialty Start Date End Date Jennifer Cabrera MD [address] [place] [address] PCP - General Family Medicine 04/10/23 Pastora Kohler NP [address] [facility] [place] [address] [facility] 02/16/23 03/18/80 Pastora Kohler NP [address] [facility] [place] [address] Nurse Practitioner Family Medicine 04/10/23 Technical Services Rep Relationship Specialty Start Date End Date Jennifer Cabrera MD [address] [place] [address] PCP - General Family Medicine 04/10/23 Pastora Kohler NP [address] [facility] [place] [address] [facility] 02/16/23 03/18/80 Pastora Kohler NP [address] [place] [address] Nurse Practitioner Family Medicine 04/10/23 Technical Services Rep Relationship Specialty Start Date End Date Jennifer Cabrera MD [address] [place] [address] PCP - General Family Medicine 04/10/23 Pastora Kohler ADMINISTRATIVE PROCESSOR [address] [place] [address] [facility] 02/16/23 03/18/80 Pastora Kohler NP [address] [place] [address] Nurse Practitioner Family Medicine 04/10/23 Technical Services Rep Relationship Specialty Start Date End Date Jennifer Cabrera MD [address] [place] [address] PCP - General Family Medicine 04/10/23 Pastora Kohler ADMINISTRATIVE PROCESSOR [address] [place] [address] [facility] 02/16/23 03/18/80 Pastora Kohler ADMINISTRATIVE PROCESSOR [address] [place] [address] Nurse Practitioner Family Medicine 04/10/23 Technical Services Rep Relationship Specialty Start Date End Date Jennifer Cabrera MD [address] [place] [address] PCP - General Family Medicine 04/10/23 Pastora Kohler NP [address] [place] [address] PCP - [facility] 02/16/23 03/18/80 Pastora Kohler NP [address] [place] [address] Nurse Practitioner Family Medicine 04/10/23 Technical Services Rep Relationship Specialty Start Date End Date Jennifer Cabrera MD [address] [place] [address] PCP - General Family Medicine 04/10/23 Pastora Kohler NP [address] [place] [address] PCP - [facility] 02/16/23 03/18/80 Pastora Kohler NP [address] [place] [address] Nurse Practitioner Family Medicine 04/10/23 Technical Services Rep Relationship Specialty Start Date End Date Jennifer Cabrera MD [address] [place] [address] PCP - General Family Medicine 04/10/23 Pastora Kohler NP [address] [place] [address] PCP - [facility] 02/16/23 03/18/80 Pastora Kohler NP [address] [place] [address] Nurse Practitioner Family Medicine 04/10/23 Technical Services Rep Relationship Specialty Start Date End Date Jennifer Cabrera MD [address] [place] [address] PCP - General Family Medicine 04/10/23 Pastora Kohler NP [address] [place] [address] PCP - [facility] 02/16/23 03/18/80 Patsora Kohler NP [address] [place] [address] Nurse Practitioner Family Medicine 04/10/23 Technical Services Rep Relationship Specialty Start Date End Date Jennifer Cabrera MD [address] [place] [address] PCP - General Family Medicine 04/10/23 Pastora Kohler ADMINISTRATIVE PROCESSOR [address] [place] [address] PCP - [facility] 02/16/23 03/18/80 Pastora Kohler ADMINISTRATIVE PROCESSOR [address] [place] [address] Nurse Practitioner Family Medicine 04/10/23 Technical Services Rep Relationship Specialty Start Date End Date Jennifer Cabrera MD [address] [place] [address] PCP - General Family Medicine 04/10/23 Pastora Kohler NP [address] [place] [address] PCP - [facility] 02/16/23 03/18/80 Pastora Kohler NP [address] [place] [address] Nurse Practitioner Family Medicine 04/10/23 Goals (unrecognized [...] 1229, Intra-procedure(Cath) 1227 (Given - Provid er: Poitr Logan MD) lidocaine 1 % injection (CANCELED) [...] BE BASED ON THE PRIMARY CLINICAL RECORDS. [employer] [facility]. provides no warranty or guarantee of the accuracy or completeness of information in this document.
--- NOTE | 2024-10-12 09:08 | PM.CN ---
Consult Note: HPI Data of Consult Patient: known to practice within the last 3 years Requesting Physician: Shama Allen NP Primary Care Provider: [facility] Consult Narrative Reason for consult: low back and LLE pain Narrative: Lesli Clay a pleasant 64 year old female presents for evaluation and management of chronic low back pain and bilateral hip/buttock pain and left knee pain. Today pain 4/10 increasing to 8/10 with activity. Patient reports aching, pressure, burning. Patient finding benefit to current medication regimen without side effects. She has failed to benefit from lumbar facet MBBs, and caudal ESIs. At previous visits we discussed SCS trial but she has not been interested in. noting increased pain and weakness of LLE since last visit, as well as 3+ falls without injury. no recent MRIs, last lumbar MRI from 2022 with prior NS consult with Dr Herrera team and she was deemed nonsurgical at this time. cc:: CC: Shama Allen NP Review of Systems ROS Musculoskeletal Reports: back pain, extremity pain and joint pain PFSH PFSH Medical History Pelvic pain ?R10.2 - Pelvic and perineal pain (ICD-10) Post-menopausal bleeding ?N95.0 - Postmenopausal bleeding (ICD-10) Fibromyalgia ?M79.7 - Fibromyalgia (ICD-10) Arthritis ?M19.90 - Unspecified osteoarthritis, unspecified site (ICD-10) Neck pain ?M54.2 - Cervicalgia (ICD-10) Back pain ?M54.9 - Dorsalgia, unspecified (ICD-10) Depression ?F32.A - Depression, unspecified (ICD-10) Panic attacks ?F41.0 - Panic disorder [episodic paroxysmal anxiety] (ICD-10) COVID-19 ?U07.1 - COVID-19 (ICD-10) Dyspnea on exertion ?R06.09 - Other forms of dyspnea (ICD-10) High cholesterol ?E78.00 - Pure hypercholesterolemia, unspecified (ICD-10) Diabetes ?E11.9 - Type 2 diabetes mellitus without complications (ICD-10) Delayed recovery from anesthesia Anesthesia complication ?T88.59XA - Other complications of anesthesia, initial encounter (ICD-10) Postmenopausal ?Z78.0 - Asymptomatic menopausal state (ICD-10) RSD (reflex sympathetic dystrophy) ?G90.50 - Complex regional pain syndrome I, unspecified (ICD-10) Low back pain ?M54.50 - Low back pain, unspecified (ICD-10) Osteoarthritis ?M19.90 - Unspecified osteoarthritis, unspecified site (ICD-10) Shingles ?B02.9 - Zoster without complications (ICD-10) Anxiety ?F41.9 - Anxiety disorder, unspecified (ICD-10) Obesity ?E66.9 - Obesity, unspecified (ICD-10) Heartburn ?R12 - Heartburn (ICD-10) Acid reflux ?K21.9 - Gastro-esophageal reflux disease without esophagitis (ICD-10) Diabetes 1.5, managed as type 2 ?E13.9 - Other specified diabetes mellitus without complications (ICD-10) Hypercholesterolemia ?E78.00 - Pure hypercholesterolemia, unspecified (ICD-10) Hypertension ?I10 - Essential (primary) hypertension (ICD-10) Surgical History S/P epidural steroid injection ?Z92.241 - Personal history of systemic steroid therapy (ICD-10) History of carpal tunnel release ?Z98.890 - Other specified postprocedural states (ICD-10) History of arthroplasty of knee ?Z96.659 - Presence of unspecified artificial knee joint (ICD-10) History of fusion of cervical spine ?Z98.1 - Arthrodesis status (ICD-10) H/O hemorrhoidectomy ?Z98.890 - Other specified postprocedural states (ICD-10) History of delivery ?Z98.891 - History of uterine scar from previous surgery (ICD-10) Hx of arthroscopy of knee ?Z98.890 - Other specified postprocedural states (ICD-10) H/O repair of rotator cuff ?Z98.890 - Other specified postprocedural states (ICD-10) H/O dilation and curettage ?Z98.890 - Other specified postprocedural states (ICD-10) History of hysteroscopy ?Z98.890 - Other specified postprocedural states (ICD-10) H/O lumbar discectomy ?Z98.890 - Other specified postprocedural states (ICD-10) History of lumbar laminectomy ?Z98.890 - Other specified postprocedural states (ICD-10) S/P trigger finger release ?Z98.890 - Other specified postprocedural states (ICD-10) Family History Other Family history of heart disease Family history of hypertension Family history of myocardial infarction Social History Within the past year, how often did you have a drink containing alcohol: never Score interpretation: A score less than 3 is consistent with normal alcohol consumption. Smoking status: Former smoker Non-prescribed substance use: denies use Highest level of school completed/degree received: high school graduate Meds Home Medications and Allergies Home Medications ?Medication ?Instructions ?Recorded ?Confirmed ?Type atorvastatin 40 mg tablet 40 mg PO QDAY 07/16/22 06/02/23 History bupropion HCl 300 mg 24 hr tablet, 300 mg PO QDAY 07/16/22 06/02/23 History extended release (Wellbutrin XL) metoprolol tartrate 25 mg tablet 25 mg PO BID 07/16/22 06/02/23 History tizanidine 4 mg capsule (Zanaflex) 4 mg PO Q12H 07/16/22 06/02/23 History aripiprazole 15 mg tablet (Abilify) 15 mg PO DAILY 05/12/23 06/02/23 History insulin degludec 100 unit/mL (3 48 unit subcut DAILY 05/12/23 06/02/23 History mL) subcutaneous pen (Tresiba FlexTouch U-100 insulin) losartan 50 mg-hydrochlorothiazide 1 tab PO DAILY 05/12/23 06/02/23 History 12.5 mg tablet (Hyzaar) semaglutide 2 mg/dose (8 mg/3 mL) 2 mg subcut QWEEK 05/12/23 06/02/23 History subcutaneous pen injector (Ozempic) hydroxyzine pamoate 25 mg capsule 25 mg PO QID PRN anxiety 08/06/23 08/06/23 History nortriptyline 50 mg capsule 50 mg PO DAILY 08/06/23 08/06/23 History naloxone 4 mg/actuation nasal 4 mg intranasal Q2M PRN opioid 02/03/24 Rx spray (Narcan) overdose #2 ea oxycodone-acetaminophen 7.5 mg-325 1 tab PO TID PRN pain #90 tabs 02/03/24 Rx mg tablet (Percocet) pregabalin 100 mg capsule (Lyrica) 100 mg PO TID #90 caps 05/31/24 Rx oxycodone-acetaminophen 7.5 mg-325 1 tab PO TID PRN pain #90 tabs 07/06/24 Rx mg tablet (Percocet) pregabalin 100 mg capsule (Lyrica) 100 mg PO TID #90 caps 07/14/24 Rx oxycodone-acetaminophen 7.5 mg-325 1 tab PO TID PRN pain #90 tabs 08/03/24 Rx mg tablet (Percocet) pregabalin 100 mg capsule (Lyrica) 100 mg PO TID #90 caps 08/22/24 Rx oxycodone-acetaminophen 7.5 mg-325 1 tab PO TID PRN pain #90 tabs 08/31/24 Rx mg tablet (Percocet) pregabalin 100 mg capsule (Lyrica) 100 mg PO TID #90 caps 09/28/24 Rx oxycodone-acetaminophen 7.5 mg-325 1 tab PO TID PRN pain #90 tabs 10/03/24 Rx mg tablet (Percocet) tizanidine 4 mg tablet 4 mg PO BID PRN muscle spasticity 10/03/24 Rx #60 tabs tizanidine 4 mg tablet 4 mg PO BID PRN muscle spasticity 10/03/24 Rx #60 tabs Allergies Allergy/AdvReac Type Severity Reaction Status Date / Time No Known Drug Allergies Allergy Verified 06/02/23 06:58 Exam Narrative Exam Narrative: diffuse pain Constitutional Documenting provider has reviewed patient's vital signs: yes Common normals: no apparent distress, oriented x3, healthy appearing, alert and well nourished General appearance: cooperative HENMT Common normals: normocephalic, hearing grossly normal bilaterally and moist oral mucous membranes Head and scalp: normocephalic Eye Common normals: PERRL Pupil: PERRL Neck & C-Spine Common normals: full ROM General: normal visual inspection Chest Common normals: inspection of chest normal Respiratory Common normals: normal respiratory effort, no retractions and no use of accessory muscles Back & Pelvis Lumbar spine/lower back: ROM limited, pain with ROM, lumbar spinal tenderness and straight leg raise positive left Sacroiliac joints: SI joint(s) abnormal Other: decreased sensation left L4,5,S1 strength 4/5 in LLE and 5/5 in RLE bilateral SIJ positive paola(patricks), gaenslens, thigh thrust, compression test left > right Neuro Common normals: oriented x3 Sensorium/orientation: alert Psych Common normals: mental status grossly normal, thought process normal, cooperative, affect normal, speech normal and activity/motor behavior normal Speech: normal speech Thought process: normal thought process Results Additional Findings Additional findings: If on a controlled substance or opioids, I have checked an [place] report on this patient and there are no aberrancies noted in the prescribing history.??If on a controlled substance or opioid a drug screen was completed and reviewed within the last year, and if there has not been a drug screen completed we ordered one today to monitor higher risk, state monitored pain medication use. As part of providing excellent, safe, comprehensive care, the following was completed at our patient's visit: 1. A medication reconciliation and review to ensure accurate knowledge of current/active medications, including asking our patients to inform us about any [id number] medications or herbal remedies/nutritional supplements/alternative remedies. 2. A review to specifically ensure our patients have had annual screening for screening for depression, screening for tobacco use, and screening for unhealthy alcohol use. For concerning screenings had a discussion with the patient, provided patient education, and recommended follow-up with primary care provider when appropriate. If patient noted with a risk of falling, they received education on strength, gait, and balance training to prevent future risk of falling. Portions of this note may have been carried over from the previous visit and updated as appropriate. Please note this office utilizes paper charting in addition to the electronic medical record. A list of current medications, vitals, and PMH is available there as the clinical staff outside of myself do not have access to [facility] charting during the clinic day operations. As part of providing quality comprehensive care the current medications, vitals, and PMH were reviewed in the paper chart. Assessment and Plan Assessment and Plan (1) Failed back syndrome: (2) Lumbar stenosis with neurogenic claudication: Assessment and Plan: The patient has had over 3 months of moderate to severe low back and LLE pain with functional impairment and inadequate response to conservative care including NSAIDS (unless there are contraindication such as concurrent blood thinners), multiple oral or topical pain medications, and home exercise program/physical therapy.? Patient has completed >6 weeks of guided home exercise program and/or formal physical therapy program without relief of their symptoms.? The Oswestry Disability Index was completed, and the patient scored a 52%.? (3) Sacroiliitis: (4) Myalgia, other site: (5) Chronic prescription opiate use: (6) Fibromyalgia: Plan update lumbar MRI without contrast to assess lumbar stenosis with NC and failed back syndrome in consideration of TFESIs vs scs trial, per pt request will order 10mg po valium 30-60 mins prior to MRI due to anxiety/claustrophobia recommend pt f/u with PCP in regards to rheumatology consult with chronic diffuse pain, fatigue, rash continue current medications, risks vs benefits reviewed. pt continues to report moderate pain relief for 4 hours after utilizing percocet. denies side effects from current medication regimen f/u to review MRI
== END 2024-10-12 08:41 | disposition home or self-care (01) ==
LOC: PM 08:40
PROVIDERS: Visit Provider Nurse Practitioner
DX: M96.1 Postlaminectomy syndrome, not elsewhere classified (principal); M48.062 Spinal stenosis, lumbar region with neurogenic claudication; M46.1 Sacroiliitis, not elsewhere classified; M79.18 Myalgia, other site; Z79.891 Long term (current) use of opiate analgesic
CPT/HCPCS: G0463

== ENCOUNTER 2024-11-03 10:52 | Outpatient (OUT) | payer MEDICARE, SELFPAY ==
--- OUTSIDE RECORDS SUMMARY | 2024-10-31 20:51 | XMS_ITS | Continuity of Care Document ---
Author Organization [facility] Address [address] [place] [address] Phone Care Team Providers Care Curb Hop Name Role Phone Kaya Tomlinson RN Attending Provider Shama Church Attending Provider Pastora Kohler Primary Care Provider Care Teams Patient Care Team Team Status: Active Member Role Status Dates [facility] Galvez Primary Care Provider Activ derik Visit Care Team Team Status: Active Member Role Status Dates Kaya Tomlinson RN Attending Provider Active Start: August 30, 2024 Visit Care Team Team Status: Inactive Member Role Status Dates [facility] Coronado Attending Provider Active St art: October 31, 2024 End: October 31, 2024 [facility] Galvez Primary Care Provider Activ e Start: October 31, 2024 End: October 31, 2024 Chief Complaint and Reason for Visit Chief Complaint Admit Date lumbar stenosis w/ neuro claudication Se ptember 2024 8:13am Allergies, Adverse Reactions, Alerts Allergen Type Severity Reaction Last Updated Verified Status No Known Allergies Allergy Unknown May 25, 2024 10:05 am Yes Active Social History Smoking Status Status Start Date End Date Date of Observa tion Ex-smoker (finding) May 102023 11:53am Observation Status Observation Response Date of Response Legal Sex Female (finding) Sex Assigned At Female [birth year] Family History Relationship Condition Age at Onset Recorded Date/T jaycee mother Hypertension Unknown Myocardial infarction Unknown father Pneumonia Unknown Unknown father Malignant neoplasm Unknown Unknown Heart disease Unknown mother Unknown Hypertension Unknown sister Malignant neoplasm Unknown Family history of thyroid disease Unknown Problems Active Problems Medical Problem Onset Date Status Comments Type 2 diabetes mellitus wit h hyperglycemia Unknown Active Download and evaluat ion of Meter. Low back pain Unknown Active Dietary counseling and surveillance Unknown Activ e Status post total left knee replacement Unknown Active Hyperlipemia Unknown Active Microalbuminuria Unknown Active Encounter for long-term (cur rent) insulin use Unknown Active Degenerative joint disease o f left knee Unknown Active Hypertension Unknown Active Vitamin D deficiency, unspecified Unknown Active Arthritis of left knee Unknown Active Medications Medication Status Dose Units Route Directions Qty Days St art Date Stop Date End Date Instructions Adherence Blood Sugar Diagnostic (Accu-Chek Guide Test Strips) strip Discont inued 0 .Route May 06, 2023 12:00a m May 06, 2023 3:13p m As directed Blood Sugar Diagnostic (Accu-Chek Guide Test Strips) strip Discont inued 0 .Route 400 May 06, 2023 3:10pm August 03, 2023 12:34 pm Test blood sugar 4 times daily Blood Sugar Diagnostic (Accu-Chek Guide Test Strips) strip Active 0 .Route 400 August 03, 2023 12:32p m Test blood sugar 4 times daily Lancets (Accu-Chek Fastclix Lancet Drum) misc Discont inued 0 .Route August 03, 2023 12:00a m August 03, 2023 12:46 pm As directed Lancets (Accu-Chek Fastclix Lancet Drum) misc Active 0 .Route 400 August 03, 2023 12:45p m As directed test blood sugar 4 times daily Metformin 1,000 mg tablet Active 0 .ROUTE .COMPLEX 200 Novemb er 2023 8:57am TAKE 1 TABLET BY MOUTH TWICE DAILY WITH A MEAL Unknown Semaglutide (Ozempic) 2 mg/dose (8 mg/3 mL) pen injector Discont inued 2 MG SUBCUT every week 3 2024 11:03a m April 28, 2024 11:27 am JAYSON NORDISK PATIENT ASSISTANCE Semaglutide (Ozempic) 2 mg/dose (8 mg/3 mL) pen injector Active 2 MG SUBCUT every week 3 April 28, 2024 11:25a m *PT TO USE JAYSON NORDISK PATIENT ASSISTANCE VOUCHER FOR 1 MONTH SUPPLY Unknown Pen Needle, Diabetic 32 gauge x 1/4 needle Discont inued 0 .Route May 02, 2024 12:00a m May 02, 2024 10:47 am As directed Pen Needle, Diabetic 32 gauge x 1/4 needle Active 0 .Route 100 May 02, 2024 10:45a m As directed use with insulin injections Atorvastati n 40 mg tablet Active 40 MG PO Daily at bedtime Novemb er 2020 12:00a m Unknown Hydrocodone -Acetaminop hen 5-325 mg tablet Discont inued 1 TAB PO Twice daily as needed for Pain Novemb er 2020 12:00a m Novem ronni 2020 11:17 pm Propranolol 10 mg tablet Discont inued MG Novemb er 2020 12:00a m Novem ronni 2020 11:44 am Baclofen 10 mg tablet Discont inued 10 MG PO Daily at bedtime Novemb er 2020 12:00a m Septe mber 2022 9:54a m Amlodipine 10 mg tablet Discont inued 10 MG PO Daily Novemb er 2020 12:00a m Febru denilson 2023 5:31p m Metformin 1,000 mg tablet Discont inued 1000 MG PO Twice daily Novemb er 2020 12:00a m Novem ronni 2023 8:57a m Lisinopril 30 mg tablet Discont inued 30 MG PO Daily Novemb er 2020 12:00a m Febru denilson 2023 5:25p m Omeprazole 20 mg Capsule,Del ayed Release(Dr/ Ec) Discont inued 20 MG PO Daily Novemb er 2020 12:00a m Febru denilson 2023 5:32p m Nortriptyli ne 50 mg capsule Discont inued 100 MG PO Daily at bedtime Novemb er 2020 12:00a m Febru 2023 5:32p m Aripiprazol e 10 mg tablet Discont inued 10 MG PO Daily [facility] er 2020 12:00a m Febru 2023 5:24p m Bupropion Hcl 300 mg tablet extended release 24 hr Active 300 MG PO Daily [facility] er 2020 12:00a m Unknown Fluocinonid e 0.1 % Cream Discont inued 1 APPLIC TOPICA L 2-4 TIMES PER DAY as needed for irritation [facility] er 2020 12:00a m Novem ronni 2023 10:52 am Insulin Glargine (Basaglar Kwikpen U-100 Insulin) 100 unit/mL (3 mL) insulin pen Discont inued 55 UNIT SUBCUT Daily at bedtime [facility] er 2020 12:00a m Febru 2023 5:32p m Empaglifloz in (Jardiance) 10 mg tablet Discont inued 20 MG PO Daily [facility] er 2020 12:00a m Febru 2023 5:13p m Semaglutide (Ozempic) 1 mg/dose (4 mg/3 mL) pen injector Discont inued 1 MG SUBCUT every week [facility] er 2020 12:00a m Febru 2023 5:12p m Oxycodone-A cetaminophe n (Percocet) 5-325 mg tablet Discont inued 1 TAB PO Q6H as needed for left hip pain 28 7 [facility] er 2020 Septe er 2022 9:55a m Omeprazole 20 mg capsule,del ayed release(DR/ EC) Active 20 MG PO Daily at bedtime 2023 5:23pm Unknown Nortriptyli ne 50 mg capsule Discont inued 100 MG PO Daily 2023 5:24pm May 11, 2023 11:50 am Nortriptyli ne 50 mg capsule Active 150 MG PO Daily May 11, 2023 11:45a m Unknown Semaglutide (Ozempic) 2 mg/dose (8 mg/3 mL) pen injector Discont inued 2 MG SUBCUT every week 2023 1:00am May 11, 2023 1:01p m Insulin Degludec (Tresiba Flextouch U-100) 100 unit/mL (3 mL) insulin pen Discont inued 54 UNIT SUBCUT Daily 2023 1:00am May 11, 2023 11:50 am Cholecalcif khanh (Vitamin D3) 50 mcg (2,000 unit) tablet Active 100 MCG PO Daily 2023 1:00am Unknown Pregabalin 75 mg capsule Active 75 MG PO Twice daily 2023 1:00am Unknown Aripiprazol e 15 mg tablet Active 15 MG PO Daily 2023 1:00am Unknown Metoprolol Tartrate 25 mg tablet Active 25 MG PO Twice daily 2023 1:00am Unknown Oxycodone-A cetaminophe n 7.5-325 mg tablet Active 1 TAB PO Three times daily as needed 2023 1:00am Unknown Tizanidine 4 mg tablet Active 4 MG PO Three times daily as needed 2023 1:00am Unknown Insulin Aspart (Niacinamid e) (Fiasp Flextouch U-100 Insulin) 100 unit/mL (3 mL) insulin pen Discont inued 1 slidin g scale dose SUBCUT Use as Directed 2023 1:00am May 11, 2023 1:01p m Corrective scale AC/HS 1:50, QID. Expect up to 30 u per day Insulin Degludec (Tresiba Flextouch U-100) 100 unit/mL (3 mL) insulin pen Discont inued 50 UNIT SUBCUT Daily May 11, 2023 11:44a m May 11, 2023 1:01p m Losartan-Hy drochloroth iazide 50-12.5 mg tablet Active 1 TAB PO Daily May 25, 2024 12:00a m Unknown Hydroxyzine Hcl 10 mg tablet Active 10 MG PO Three times daily as needed May 11, 2023 12:00a m Unknown Insulin Degludec (Tresiba Flextouch U-100) 100 unit/mL (3 mL) insulin pen Discont inued 48 UNIT SUBCUT Daily May 11, 2023 12:57p m Augus t 2023 2:37p m PAP approved thru 02/16/2024 Insulin Aspart (Niacinamid e) (Fiasp Flextouch U-100 Insulin) 100 unit/mL (3 mL) insulin pen Active 1 slidin g scale dose SUBCUT Use as Directed May 11, 2023 1:00pm PAP approved thru 02/16/2024 Corrective scale AC/HS 1:50, QID. Expect up to 30 u per day Unknown Semaglutide (Ozempic) 2 mg/dose (8 mg/3 mL) pen injector Discont inued 2 MG SUBCUT every week May 11, 2023 1:01pm Febru denilson 2024 11:05 am PAP approved thru 02/16/2024 Insulin Degludec (Tresiba Flextouch U-100) 100 unit/mL (3 mL) insulin pen Discont inued 50 UNIT SUBCUT Daily September 23, 2023 2:35pm Novem ronni 2023 10:54 am PAP approved thru 02/16/2024 Insulin Degludec (Tresiba Flextouch U-100) 100 unit/mL (3 mL) insulin pen Active 48 UNIT SUBCUT Daily [facility] er 2023 10:53a m PAP approved thru 02/16/2024 Unknown Immunizations Immunization Event Date Not Given Reason Dose Number Division Order Analyst Lot Number Vaccine Information Statement (VIS) Detail Administration Location COVID-19 mRNA-1273 (Moderna) May 15, 2020 COVID-19 mRNA-1273 (Moderna) June 12, 2020 Medical Equipment Device Date Implanted Device Details Orthopaedic cement, non-medicated January 03, 2021 MEL: [id number] Issuing Agency: [employer] Device Id: [id number] Expiration Date: 2023-08-16 Lot Number: [id number] Orthopaedic cement, non-medicated January 03, 2021 MEL: [id number] Issuing Agency: [employer] Device Id: [id number] Expiration Date: 2023-08-16 Lot Number: [id number] Uncoated knee femur prosthesis January 03 MEL: [id number] Issuing Agency: [facility] Device Id: [id number] Expiration Date: 2030-01-29 Lot Number: [id number] Tibial insert January 03, 2021 MEL: ()[id number] Issuing Agency: [facility] Device Id: [id number] Expiration Date: 2024-08-31 Lot Number: [id number] Polyethylene patella prosthesis January 03 MEL: ()[id number] Issuing Agency: [facility] Device Id: [id number] Expiration Date: 2025-10-18 Lot Number: [id number] Uncoated knee tibia prosthes is, metallic January 03, 2021 MEL: [id number] Issuing Agency: [facility] Device Id: [id number] Expiration Date: 2030-08-27 Lot Number: [id number] Procedures Procedure Date Performed Status MR lumbar spine wo con October 31, 2024 8:16 am completed XR pre/post mri xray October 31, 2024 8:17am completed Relevant Diagnostic Tests and/or Laboratory Data Laboratory Results Test Collection Date/Time Result Date/Time Result Interpretation Reference Range Result Comment Performing Site Hemoglobin A1c August 30, 2024 12:00am September 05, 2024 7:14am 8.4 % Diagnostic Imaging Reports Author Chalino Peacock [facility] Report Date/Time October 31, 2024 4:31pm [facility] [place] [address] MRI Report Signed Patient: Lesli Clay#: [id number] : 1960 Acct:[id number] Age/Sex: 64 / F ADM Date: 5 Loc: MR Room: Type: [facility] CLI Attending Dr: Shama SANZ Copies to: [facility] Coronado~ Ordering Provider: [facility] Coronado Date of Service: 10/31/24 MR/MR lumbar spine wo con: LUMBAR STENOSIS W/NEURO CLAUDICATION ([id number]) XR/XR pre/post mri xray: LUMBAR STENOSIS W/NEURO CLAUDICATION MR lumbar spine wo con, XR pre/post mri xray 10/31/2024 8:56 AM SIGNS AND SYMPTOMS: LUMBAR STENOSIS W/NEURO CLAUDICATION ^POST XRAY COMPARISON: MRI 09/19/2022, myelogram 10/30/2022 FINDINGS: 2 views lumbar spine Multilevel postsurgical changes L1-S1 posterior fusion. L5-S1 discectomy with spacer device. Likely interbody ankylosis of the level. Moderate foraminal encroachment L4-S1 and lateral views. Vascular calculations. MRI lumbar spine performed without contrast Redemonstration substantial magnetic field artifact due to the hardware. Multilevel postsurgical changes status post L1-S1 fusion. Lumbar vertebral heights and alignment maintained. Evidence of discectomy and spacer device at L5-S1 with 3 mm of grade 1 anterolisthesis at this level.. Residual endplate marrow changes at L5-S1 appearing T1 and T2 hyperintense. Moderate intervertebral space narrowing at T12-L1 with associated intermargin plate spurring. At T12-L1: Broad-based disc bulge with facet hypertrophy. Mild central canal stenosis without with no significant neural foraminal narrowing. Slight posterior element degenerative changes in left. At L1-L2: Hardware artifact partially obscures evaluation. No significant central canal or foraminal. At L2-L3: Hardware artifact partially obscures evaluation. Dorsal canal obscured. Left foramen appears patent. Right foramen is partially obscured. At L3-L4: Hardware artifact partially obscures evaluation. Central canal appears grossly patent. Left neural foramen appears patent. Right neural foramen is completely obscured due to artifact.. At L4-L5: Hardware artifact partially obscured evaluation. Redemonstration of acircumferential disc bulge with facet hypertrophy. There is moderate severe central canal stenosis and likely right subarticular recess encroachment. Moderate severe right neural foraminal narrowing noted. Left foramen may be at least moderately narrowed difficult to visualize. At L5-S1: Discectomy and fusion with diffuse ossific bridging with facet hypertrophy and endplate osteophyte formation contributing to moderate neural from narrowing. Canal appears grossly patent. MR/MR lumbar spine wo con IMPRESSION: Examination is degraded due to the artifact from the multilevel posterior instrumentation hardware hardware similar presentation. Degenerative changes notably in left at L4-5 with moderate left-sided neural foraminal and subarticular recess narrowing, correlate with possible left L4 andL5 radiculopathy. Please note that multiple levels difficult to evaluate due tohardware artifacts and may obscure left-sided nerve root impingement. Correlation with clinical exam findings recommended. If there is persistent/continued clinical concern, repeat myelogram may be considered. Impression dictated by: Chalino Peacock M.D. 10/31/2024 4:31 PM Dictation Location: [place] [address] Transcribed By: [facility] 10/31/24 1631 Dictated By: Chalino Peacock MD 10/31/24 1615 Signed By: <Electronically signed by Chalino Peacock MD in OV> 10/31/24 1631 Advance Directives Advance Directive Response Recorded Date/ Time Advance Directives No January 17, 2020 3:49pm Insurance Providers Guarantor [address] Address [address] [place] [id number] Contact Info. Home Phone: Payer Policy Id Subscriber's Name Subscriber Id Effectiv e Date Expiration Date Alexis VALDIVIA [id number] 01 Salvador Clay [id number] Encounters Encounter Location(s) Arrival/Admit Date Discharge/Depart Date Provider(s) Non-patient / Non-visit -[facility] August 30, 2024 12:00am Kaya Tomlinson RN Departed Clinical -[facility] [place] October 31, 2024 8:13am October 31, 2024 8:14am [facility] Coronado
--- OUTSIDE RECORDS SUMMARY | 2024-11-03 10:55 | XMS_ITS ---
Author Organization [facility] Address [address], [address] [place] [address] Care Team Providers Care Chief Dispatcher Name Role Phone Pastora Kohler SPECIAL EFFECTS PERSON - SEWER MAINTENANCE SUPERVISOR Primary Care P located within [facility] Active Problems Problem Noted Date [...] Assessment & Plan: She is managed by [facility]. A1c is high and advised [...]
--- OUTSIDE RECORDS SUMMARY | 2024-11-03 10:55 | XMS_ITS | Encounter Summary ---
Author Organization [facility] Address [address] [place] [address] Care Team Providers Care Lawn And Garden Technician Name Role Phone Jennifer Christine MD Primary Care Provider [phone] Pastora Kohler EMERGENCY ROOM PHYSICIAN ASSISTANT Unavailable [phone] Pastora Kohler EMERGENCY ROOM PHYSICIAN ASSISTANT Unavailable [phone] Encounter Details Date Type Department Care Team (Late st Contact Info) Description 03/10/2024 External Result Encounter [facility] External Department Unsolicited Sean Torres, SERGIO [address] [place] [address] Social History Tobacco Use Types Packs/Day Years [...] Manuel Armando M.D.03/10/2024 10:09 AM Dictation Location: [place] [address] Transcribed By: [facility] 03/10/24 1009 Dictated By: Carlos Manuel Armando DO 03/10/24 0959 Signed By: <Electronically signed by Carlos Manuel Armando DO in OV> 03/10/24 1009 Narrative 03/10/2024 10:11 AM EST [facility] [place] [address] [place] [address] MRI Report Signed Patient: Lesli Clay MR#: [id number] : 1960 Acct:[id number] Age/Sex: 63 / F ADM Date: 03/10/24 Loc: Room: Type: [facility] Attending Dr: Sean Torres PA-C Copies to: Sean Torres PA-C Ordering Provider: Sean Torres PA-C Date of Service: 03/10/24 MR/MR shoulder RT wo con: M24.811 ([id number]) XR/XR pre/post mri xray: M24.811 MRI right [...] con Procedure Note Radiology, Radiologist, - 03/10/2024 [facility] [place] [address] [place] [address] MRI Report Signed Patient: Lesli Clay MMR#: [id number] : 1Acct:[id number] Age/Sex: 63 / FADM Date: 03/10/24 Loc: Room:Type: [facility] Attending Dr: Sean Torres PA-C Copies to: Sean Torres PA-C Ordering Provider: Sean Torres PA-C Date of Service: 03/10/24 MR/MR shoulder RT wo con: M24.811 ([id number]) XR/XR pre/post mri xray: M24.811 MRI right [...] Manuel Armando M.D.03/10/2024 10:09 AM Dictation Location: [place] [address] Transcribed By: [facility] 03/10/24 1009 Dictated By: Carlos Manuel Armando DO 03/10/24 0959 Signed By: <Electronically signed by Carlos Manuel Armando DO in OV> 03/10/24 1009 Sean [facility] IMG MRI PROCEDURES Final Resu lt documented in this encounter Visit Diagnoses Not on filedocumented in this encounter Care Teams Lawn And Garden Technician Relationship Specialty Start Date End Date Jennifer Christine MD [address] [place] [address] PCP - General Family Medicine 04/10/23 Pastora Kohler NP [address] [place] [address] [address] - [facility] 02/16/23 03/18/80 Pastora Kohler NP [address] [place] [address] Nurse Practitioner Family Medicine 04/10/23 documented as of this encounter
--- OUTSIDE RECORDS SUMMARY | 2024-11-03 10:55 | XMS_ITS | Encounter Summary ---
Author Organization [facility] Address [address] [place] [address] Care Team Providers Care Public Relations Coordinator Name Role Phone Mi Cabrera MD Primary Care Provider [phone] Pastora Kohler WILL CALL CLERK Unavailable [phone] Pastora Kohler WILL CALL CLERK Unavailable Encounter Details Date Type Department Care Team (Late st Contact Info) Description 05/19/2023 Clinisync Result Encounter [facility] External Department Unsolicited Mi Cabrera MD [address] [facility] [place] [address] Social History Tobacco Use Types [...] PM EDT Narrative 05/19/2023 7:16 PM EDT [address] [address] Cardiology Report Signed Patient: JEANETTE FRAGA MR#: [id number] : 1960 Acct:[id number] Age/Sex: 63 / F ADM Date: 05/18/23 Loc: CARD Attending Dr: MI CABRERA Ordering Physician: MI CABRERA Date of Service: 05/18/23 Procedure(s): CA echo doppler complete Accession Number(s): [id number] cc: [facility] ; MI CABRERA Patient Name: JEANETTE FRAGA MR#: [id number] : 1960 Exam Date: 05/18/2023 Ordering Doctor: [...] Pressure: 78.00 ml, 78.00 ml Dictated by: Rica Sellers M.D. on 05/19/2023 at 19:10 Approved by: Rica Sellers M.D. on 05/19/2023 at 19:15 Dictated By: RICA SELLERS Signed By: 05/19/231915 DD/ 14 TD/TT: Ball Warper Tender: Procedure Note Radiology, Radiologist, MD - 05/19/2023 [place] [address] Cardiology Report Signed Patient: JEANETTE FRAGA MMR#: [id number] : 1960cct:[id number] Age/Sex: 63 / FADM Date: 05/18/23 Loc: CARD Attending Dr: MI CABRERA Ordering Physician: MI CABRERA Date of Service: 05/18/23 Procedure(s): CA echo doppler complete Accession Number(s): [id number] cc: [facility] ; MI CABRERA Patient Name: JEANETTE FRAGA MR#: [id number] : 1960 Exam Date: 05/18/2023 Ordering Doctor: [...] Pressure: 78.00 ml, 78.00 ml Dictated by: Rica Sellers M.D. on 05/19/2023 at 19:10 Approved by: Rica Sellers M.D. on 05/19/2023 at 19:15 Dictated By: RICA SELLERS Signed By:05/19/231915 DD/ 14 TD/TT: Ball Warper Tender: Mi Cabrera MD [facility] Final Resul t documented in this encounter Visit Diagnoses Not on filedocumented in this encounter Care Teams Public Relations Coordinator Relationship Specialty Start Date End Date Mi Cabrera MD [address] [place] [address] PCP - General Family Medicine 04/10/23 Pastora Kohler NP [address] [place] [address] PCP - [facility] 02/16/23 03/18/80 Pastora Kohler NP [address] [facility] [place] [place] [address] Nurse Practitioner Family Medicine 04/10/23 documented as of this encounter
--- OUTSIDE RECORDS SUMMARY | 2024-11-03 10:55 | XMS_ITS | Encounter Summary ---
Author Organization [facility] Address [address] [place] [address] Care Team Providers Care Dispensing Optician Name Role Phone Judith Newman DO Unavailable [phone] Judith Newman DO Primary Care Provider [phone] Jennifer Christine MD Primary Care Provider [phone] Pastora Kohler RN WOUND Unavailable [phone] Pastora Kohler RN WOUND Unavailable [phone] Encounter Details Date Type Department Care Team ([facility] st Contact Info) Description 10/24/2022 Abstract [facility] Family Medicine [address] [place] [address] Judith Newman DO [address] [id number] Social History Tobacco Use Types Packs/Day Years Used Date Smoking Tobacco: Never Assessed Comments Unknown Sex and Gender Information Value Date Recorded Sex Assigned at Not on file Legal Sex Female 6:56 PM EDT Gender Identity Not on file Sexual Orientation Not on file documented as of this encounter Plan of Treatment Not on file documented as of this encounter Visit Diagnoses Not on filedocumented in this encounter Care Teams Dispensing Optician Relationship Specialty Start Date End Date Judith Newman DO [address] [facility] [address] [place] [address] PCP - [facility] 09/16/21 12/16/22 Judith Newman DO [address] [facility] [address] [place] [phone] PCP - General Family Medicine 06/24/22 04/09/23 Jennifer Christine MD [address] [place], [place] [id number] PCP - General Family Medicine 04/10/23 Pastora Kohler NP [address] [facility] [place] [address] PCP - [facility] 02/16/23 03/18/80 Pastora Kohler NP [address] [place] [address] Nurse Practitioner Family Medicine 04/10/23 documented as of this encounter
--- OUTSIDE RECORDS SUMMARY | 2024-11-03 10:55 | XMS_ITS | Encounter Summary ---
Author Organization [employer] Sys [facility] Address [id number] [address] [place] [address] Care Team Providers Care Cable Swager Name Role Phone Pastora Kohler APRN-SKIP TENDER Primary Care Pro vider Reason for Referral * Cardiology (Routine) - Closed Specialty Diagnoses / Procedures Referred By Conttatum t Referred To Contact Diagnoses Endometrial cancer ([facility]) Pre-op testing Procedures ECG 12 lead Edwin Moreno MD [address] [place] [address], [address] [place] [address] Phone: tel: fax: Referral ID Status Reason Start Date Expiration Date Visits Re quested Visits Authorized [id number] Closed 06/03/2023 06/02/2024 1 1 Encounter Details Date Type Department Care Team (Late st Contact Info) Description 06/03/2023 Orders Only [facility] Gynecology Oncology [address] [place] [address] [address] [place] [address] Edwin Moreno MD [address] [place] [address], [address] [place] [address] Endometrial cancer (CMS-HCC) (Primary Dx); [...] - 146 mmol/L 06/04/2023 1:35 PM EDT [facility] Potassium, Bld 4.1 3.5 - 5.0 mmol/L 06/04/2023 1:35 PM EDT [facility] Chloride 97(L) 98 - 109 mmol/L 06/04/2023 1:35 PM EDT [facility] CO2 31 22 - 32 mmol/L 06/04/2023 1:35 PM EDT [facility] Anion gap 9 5 - 15 mmol/L 06/04/2023 1:35 PM EDT [facility] BUN 16 5 - 27 mg/dL 06/04/2023 1:35 PM EDT [facility] Creatinine 0.92 0.40 - 1.00 mg/dL 06/04/2023 1:35 PM EDT [facility] Comment:METHOD TRACEABLE TO IDMS STANDARD Glucose 170(H) 65 - 99 mg/dL 06/04/2023 1:35 PM EDT [facility] Calcium 9.3 8.5 - 10.5 mg/dL 06/04/2023 1:35 PM EDT [facility] Total Protein 7.3 6.0 - 8.0 g/dL 06/04/2023 1:35 PM EDT [facility] Albumin 3.9 3.2 - 5.3 g/dL 06/04/2023 1:35 PM EDT [facility] Alkaline Phosphatase 107 39 - 130 U/L 06/04/2023 1:35 PM EDT [facility] AST 18 0 - 41 U/L 06/04/2023 1:35 PM EDT [facility] ALT 26 0 - 31 U/L 06/04/2023 1:35 PM EDT [facility] Total bilirubin 0.3 0.3 - 1.2 mg/dL 06/04/2023 1:35 PM EDT [facility] eGFR (CKD-EPI)non-rac e dependent 70 >59 ml/min/1.7 3sq.m 06/04/2023 1:35 PM EDT [facility] Comment: Reported eGFR is based on the CKD-EPI 2020 equation that does not use a race coefficient. PLASMA 06/04/2023 7:54 AM EDT 06/04/2023 7:56 AM EDT us Edwin Moreno MD LAB BLOOD ORDERABLES Final Resu lt MICHAEL [facility] [address] [facility], [address] [place] [address] * (ABNORMAL) CBC auto differential (06/04/2023 7:54 AM EDT) White Blood Cells 9.1 4.0 - 11.0 X10E9/L 06/04/2023 2:34 PM EDT [facility] RBC count 4.19 3.80 - 5.20 X10E12/L 06/04/2023 2:34 PM EDT [facility] Hemoglobin 11.8 11.7 - 15.5 g/dL 06/04/2023 2:34 PM EDT [facility] Hematocrit 36.4 35 - 47 % 06/04/2023 2:34 PM EDT [facility] MCV 87 80 - 100 fL 06/04/2023 2:34 PM EDT [facility] MCH 28.3 27 - 34 pg 06/04/2023 2:34 PM EDT [facility] MCHC 32.5 32 - 36 g/dL 06/04/2023 2:34 PM EDT [facility] RDW 16.0(H) 11.5 - 15.0 % 06/04/2023 2:34 PM EDT [facility] Platelets 294 150 - 450 X10E9/L 06/04/2023 2:34 PM EDT [facility] MPV 7.9 7 - 12 fL 06/04/2023 2:34 PM EDT [facility] % neutrophils 67.4 % 06/04/2023 2:34 PM EDT [facility] % lymphocytes 23.6 % 06/04/2023 2:34 PM EDT [facility] % monocytes 6.5 % 06/04/2023 2:34 PM EDT [facility] % eosinophils 2.1 % 06/04/2023 2:34 PM EDT [facility] % Basophils 0.4 % 06/04/2023 2:34 PM EDT [facility] Neutrophils Absolute (A) 6.1 1.5 - 6.6 X10E9/L 06/04/2023 2:34 PM EDT [facility] Lymphocytes Absolute 2.1 1.0 - 3.5 X10E9/L 06/04/2023 2:34 PM EDT [facility] Monocytes Absolute 0.6 0 - 0.9 X10E9/L 06/04/2023 2:34 PM EDT [facility] Eosinophils Absolute 0.2 0.0 - 0.4 X10E9/L 06/04/2023 2:34 PM EDT [facility] Basophils Absolute 0.0 0.0 - 0.2 X10E9/L 06/04/2023 2:34 PM EDT [facility] Blood / Unknown 06/04/2023 7 :54 AM EDT 06/04/2023 7:56 AM EDT Edwin Moreno MD LAB BLOOD ORDERABLES Final Resu lt MICHAEL [facility] [address] [facility] [place] [address] * X-ray chest 2 views (06/04/2023 7:53 AM EDT) Anatomical Region Laterality Modality Chest N/A Computed Radiogr aphy 06/04/2023 9:53 AM EDT Narrative 06/04/2023 9:54 AM EDT Chest 2 views History: Anesthesia clearance, preadmission testing Endometrial cancer ([facility]); Pre-op testing Comparison: 02/19/2022 Findings: Chest 2 views. Stable cardia mediastinal silhouette. No new focal opacity, effusion or pneumothorax. Degenerative changes of the thoracic spine. Impression: No evident acute cardiopulmonary process. Finalized by Sami Bahena MD on 06/04/2023 9:54 AM Procedure Note Sami Bahena MD - 06/04/2023 Chest 2 views History: Anesthesia clearance, preadmission testing Endometrial cancer([facility]); Pre-op testing Comparison: 02/19/2022 Findings: Chest 2 [...] this encounter Visit Diagnoses Diagnosis Endometrial cancer ([facility])- Primary Malignant neoplasm of corpus uteri, except isthmus Pre-op testing Unspecified pre-operative examination Endometrial cancer (CMS-HCC) Malignant neoplasm of corpus uteri, except isthmus Pre-op testing Unspecified pre-operative examination Endometrial cancer (CMS-HCC) Malignant neoplasm of corpus uteri, except isthmus Pre-op testing Unspecified pre-operative examination documented in this encounter Care Teams Cable Swager Relationship Specialty Start Date End Date Pastora Kohler, JOSEFINA-SKIP TENDER [address] [place] [address] PCP - General Internal Medicine 09/07/24 documented as of this encounter
--- OUTSIDE RECORDS SUMMARY | 2024-11-03 10:55 | XMS_ITS | Encounter Summary ---
Author Organization [facility] Address [id number] [address] [place] [address] Care Team Providers Care Orthopedic Designer Name Role Phone Pastora Kohler APRN-SIGNALER Primary Care Pro vider Encounter Details Date Type Department Care Team (Late st Contact Info) Description 06/04/2023 Orders Only [facility] Gynecology Oncology [address] [id number] Ref Prov, [place] [address] Social History Tobacco Use Types Packs/Day Years [...] on filedocumented in this encounter Care Teams Orthopedic Designer Relationship Specialty Start Date End Date Pastora Kohler APRN-PAM [address] [place] [address] PCP - General Internal Medicine 09/07/24 documented as of this encounter
--- OUTSIDE RECORDS SUMMARY | 2024-11-03 10:55 | XMS_ITS | Encounter Summary ---
Author Organization [facility] Address [address] [place] [address] Care Team Providers Care Laboratory Miller Name Role Phone Jennifer Christine MD Primary Care Provider [phone] Pastora Kohler SAP BI ARCHITECT Unavailable [phone] Pastora Kohler SAP BI ARCHITECT Unavailable [phone] Reason for Visit * Reason Onset Date Comments Med Refill 12/21/2023 Encounter Details Date Type Department Care Team (Late st Contact Info) Description 12/21/2023 Refill [facility] Family Medicine [address] [place] [address] Jennifer Christine MD [address] [place] [address] Social History Tobacco Use Types [...] documented in this encounter Plan of Treatment Not on file documented as of this encounter Visit Diagnoses Not on filedocumented in this encounter Care Teams Laboratory Miller Relationship Specialty Start Date End Date Jennifer Christine MD [address] [place] [address] PCP - General Family Medicine 04/10/23 Pastora Kohler NP [address] [place] [address] PCP - [facility] 02/16/23 03/18/80 Pastora Kohler NP [address] [place] [address] Nurse Practitioner Family Medicine 04/10/23 documented as of this encounter
--- OUTSIDE RECORDS SUMMARY | 2024-11-03 10:55 | XMS_ITS | Encounter Summary ---
Author Organization [facility] Address [facility] [place] [address] Care Team Providers Care Solar Energy Systems Engineer Name Role Phone Dago Keith Primary Care Provider [phone] Source Comments In the event this information is protected by the Federal Confidentiality of Alcohol and Drug AbusePatient Records regulations: The Federal rules restrict any use of the information to criminally investigate or prosecute any alcohol or drug abuse patient.[facility] Encounter Details Date Type Department Care Team (Late st Contact Info) Description 05/29/2023 Lab Requisition [facility] [address] [place] [address] Lukasz Neal MD [address] [place] [address] Person encountering health services to consult on [...] EDT) Case Report Surgical Pathology Report Case: [id number] Authorizing Provider: Lukasz Neal MD Collected: 05/29/2023 12:39 PM Ordering Location: [facility] Received: 05/29/2023 12:38 PM [facility] Pathologist: Jeri Dickerson MD Specimen: Slide(s), 2 SLIDES ([id number]) 05/29/2023 5:06 PM EDT [facility] FINAL DIAGNOSIS Review of outside slides, dated 05/26/2023: Endometrium, curettage: -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 05/29/2023 5:06 PM EDT [facility] at 1706 EDT Diagnosis Comment [...] free to give me a call at [phone]. 05/29/2023 5:06 PM EDT [facility] Clinical History CONSULT REQUESTED 05/29/2023 5:06 PM EDT [facility] Performing Lab Diagnostic interpretation performed at [facility], [address] [place], [place] [address] [facility]# [id number] Mud Plant Operator: Josh Orellana M.D. 05/29/2023 5:06 PM EDT [facility] Blocks or Slides MICROSCOPE SLIDE / Unknown 05/29/2023 12:39 PM EDT 05/29/2023 12:38 PM EDT us Lukasz Neal MD SURGICAL PATHOLOGY Final Re sult [facility] [address] [facility] [address] [place] [address], documented in this encounter Visit Diagnoses Diagnosis Person encountering health services to consult on behalf of another person Other person consulting on behalf of another person documented in this encounter Care Teams Solar Energy Systems Engineer Relationship Specialty Start Date End Date Dago Keith [address] [place] [address] [place] [address] PCP - General 02/15/08 documented as of this encounter
--- OUTSIDE RECORDS SUMMARY | 2024-11-03 10:55 | XMS_ITS | Clinical Summary ---
Author Organization [employer] Address [id number] [address] [place] [address] Care Team Providers Care Gis Analyst Name Role Phone Pastora Kohler APRN-NAIL PROFESSIONAL Primary Care Pro vider Allergies No known active allergies Medications * This document contains information received from the source organization and may not represent a complete record from that organization. metFORMIN (GLUCOPHAGE) 500 mg tablet Take 1 tablet (500 mg total) by mouth in the morning. 2 TABS IN AM AND 1 TAB IN EVENING. Active ibuprofen (ADVIL,MOTRIN) 600 mg tabletIndicatio ns:osteoarthrit is,pain Take 1 tablet (600 mg total) by mouth 3 (three) times a day as needed for pain Indications: joint damage causing pain and loss of function, pain. Active atorvastatin (LIPITOR) 40 mg tablet 08/04/2019 Active OZEMPIC 1 mg/dose (2 mg/1.5 mL) pen injector 05/07/2020 Active oxyCODONE-aceta minophen (PERCOCET) 7.5-325 mg per tablet 01/07/2023 Active pregabalin (LYRICA) 75 mg capsule Take 1 capsule (75 mg total) by mouth in the morning and 1 capsule (75 mg total) before bedtime. Active metoprolol tartrate (LOPRESSOR) 25 mg tablet Take 1 tablet (25 mg total) by mouth in the morning and 1 tablet (25 mg total) before bedtime. Active losartan-hydroC HLOROthiazide (HYZAAR) 50-12.5 mg per tablet Take 1 tablet by mouth in the morning. Active tiZANidine (ZANAFLEX) 4 mg tablet Take 1 tablet (4 mg total) by mouth every 6 (six) hours as needed for muscle spasms. Active empagliflozin-m etFORMIN (SYNJARDY XR) 12.5-1,000 mg tablet, IR & ER, biphasic 24hr Take by mouth in the morning. Active insulin degludec (TRESIBA FLEXTOUCH U-100 SUBQ) Inject 52 mg under the skin in the morning. Active ERGOCALCIFEROL, VITAMIN D2, ORAL Take by mouth. Active nortriptyline (PAMELOR) 50 mg capsuleIndicati ons:Severe episode of recurrent major depressive disorder, without psychotic features (CMS-HCC) Take 3 capsules (150 mg total) by mouth nightly. 270 capsule 3 11/19/2023 Active hydrOXYzine (VISTARIL) 25 mg capsule Take 1 capsule (25 mg total) by mouth 4 (four) times a day as needed for anxiety. 120 capsule 2 06/08/2024 Active buPROPion XL (WELLBUTRIN XL) 300 mg 24 hr tabletIndicatio ns:Severe episode of recurrent major depressive disorder, without psychotic features (CMS-HCC) Take 1 tablet (300 mg total) by mouth every morning. 100 tablet 3 07/06/2024 Active ARIPiprazole (ABILIFY) 10 mg tabletIndicatio ns:Severe episode of recurrent major depressive disorder, without psychotic features (CMS-HCC) Take 1 tablet (10 mg total) by mouth in the morning. 90 tablet 3 09/26/2024 Active Active Problems Problem Noted Date Diagnosed Date Endometrial cancer 06/03/2023 BMI 50.0-59.9, adult 06/03/2023 Cellulitis of right lower extremity 12/06/2016 Chronic pain disorder 11/13/2016 Generalized anxiety disorder 11/13/2016 Severe episode of recurrent major depressive disorder, without psychotic features 11/13/2016 Encounters * This document contains information received from the source organization and may not represent a complete record from that organization. Date Type Department Care Team Description 09/07/2024 6:41 PM EDT - 09/07/2024 8:09 PM EDT Emergency [facility] - Emergency [address] [place] [address] Spike Gutierrez MD Cellulitis of left lower extremity (Primary Dx) Discharge Disposition: Home 09/07/2024 Travel from Last 3 Months Immunizations Immunization Administration Dates Next Due COVID-19, mRNA, LNP-S, PF, 100mcg/0.5mL Dose ,05/15/2020 Influenza, Unspecified 10/17/2016 Family History Medical History Relation Name Comments Ovarian cancer Sister Relation Name Status Comments Sister Social History Tobacco Use Types Packs/Day Years Used Date Smoking Tobacco: Former Cigarettes Q uit: 06/18/2010 Smokeless Tobacco: Never Tobacco Cessation:Counseling Given: Not Answered Alcohol Use Standard Drinks/Week Comments Never 0 (1 standard drink = 0.6 oz pur e alcohol) Childcare Answer Date Recorded Childcare Unknown 07/21/2018 Employment Answer Date Recorded Employment Unknown 07/21/2018 Hunger Screening Answer Date Recorded Within the past 12 months we worried whether our food would run out before we got money to buy more. Never True 09/07/2024 Within the past 12 months th e food we bought just didn't last and we didn't have money to get more. Never True 09/07/2024 Purpose - Life Answer Date Recorded Purpose and direction in life Unknown Comments No Sex and Gender Information Value Date Recorded Sex Assigned at Not on file Legal Sex Female 11:42 AM EDT Gender Identity Not on file Sexual Orientation Not on file Last Filed Vital Signs Vital Sign Reading Time Taken Comments Blood Pressure 190/105 09/07/2024 7:40 PM EDT Pulse 82 09/07/2024 7:40 PM EDT Temperature 36.8 C (98.3 F) 09/07/2024 6:47 PM EDT Respiratory Rate 19 09/07/2024 7:40 PM EDT Oxygen Saturation 97% 09/07/2024 7:40 PM EDT Inhaled Oxygen Concentration - - Weight 145.2 kg (320 lb) 09/07/2024 6:47 PM EDT Height 160 cm (5' 3 ) 09/07/2024 6:47 PM EDT Body Mass Index 56.69 09/07/2024 6:47 PM EDT Plan of Treatment Health Maintenance Due Date Last Done Comments Depression Screening 1972 Adult BMI Follow Up Plan 1978 DTaP,Tdap and Td Vaccines (1 - Tdap) 1979 Zoster (Shingles) Vaccine (1 of 2) 1979 COVID-19 Vaccine (5 - Modern a risk ) 10/17/2024 11/15/2023, 11/21/2022, 06/12/2020, Additional history exists Influenza Vaccine 10/17/2024 10/23/2023, , 02/26/2022, Additional history exists Adult BMI Screening 09/07/2025 09/07/2024 Tobacco Screening 09/07/2025 09/07/2024 Pap Smear 06/14/2026 06/15/2023, 06/15/2023 Medical Devices Not on file Procedures Procedure Name Priority Date/Time Associated Diagnosis Comments EXTRA TUBES SST TOP Routine 09/07/2024 6 :57 PM EDT EXTRA TUBES BLUE TOP Routine 09/07/2024 6:57 PM EDT EXTRA TUBES Routine 09/07/2024 6:57 PM EDT LACTATE W/ REFLEX STAT 09/07/2024 6:5 7 PM EDT COMPREHENSIVE METABOLIC PANEL STAT 09/07/2024 6:57 PM EDT CBC WITH AUTO DIFFERENTIAL STAT 09/07/2024 6:57 PM EDT from Last 3 Months Results * SST TOP (09/07/2024 6:57 PM EDT) Extra Tube Auto Resulted 09/07/2024 8:03 PM EDT [facility] Blood Venous blood / Unknown 09/07/2024 6:57 PM EDT 09/07/2024 7:02 PM EDT Spike Gutierrez MD LAB BLOOD ORDERABLES Final Resu lt Performing Organization Address City/[facility]/ZIP Co de Phone Number [address] [place] [address], [place] * Light Blue Top (09/07/2024 6:57 PM EDT) Extra Tube Auto Resulted 09/07/2024 8:03 PM EDT [facility] Blood Venous blood / Unknown 09/07/2024 6:57 PM EDT 09/07/2024 7:02 PM EDT Spike Gutierrez MD LAB BLOOD ORDERABLES Final Resu lt Performing Organization Address [facility] Co de Phone Number [address] [place] [address], [place] * Lactate w/ Reflex (09/07/2024 6:57 PM EDT) LACTATE W/REFLEX 1.3 0.4 - 2.0 mmol/L 09/07/2024 7:22 PM EDT [facility] Blood Venous blood / Unknown Venipuncture / Unknown 09/07/2024 6:57 PM EDT 09/07/2024 7:02 PM EDT Narrative [facility] - 09/07/2024 7:22 PM EDT Result did not trigger repeat Lactate, re-order if needed. Spike Gutierrez MD LAB BLOOD ORDERABLES Final Resu lt Performing Organization Address City/[facility]/ZIP Co de Phone Number [address] [place] [address], [place] * (ABNORMAL) CBC auto differential (09/07/2024 6:57 PM EDT) WBC 9.6 4 - 11 x10E9/L 09/07/2024 7:15 PM EDT [facility] RBC Count 4.14 3.8 - 5.2 X10E12/L 09/07/2024 7:15 PM EDT [facility] Hemoglobin 11.3(L) 11.7 - 15.5 g/dL 09/07/2024 7:15 PM EDT [facility] Hematocrit 34.2(L) 35 - 47 % 09/07/2024 7:15 PM EDT [facility] MCV 83 80 - 100 fL 09/07/2024 7:15 PM EDT [facility] MCH 27.2 27 - 34 pg 09/07/2024 7:15 PM EDT [facility] MCHC 33.0 32 - 36 g/dL 09/07/2024 7:15 PM EDT [facility] RDW 17.0(H) 11.5 - 15 % 09/07/2024 7:15 PM EDT [facility] Platelet Count 294 150 - 450 X10E9/L 09/07/2024 7:15 PM EDT [facility] MPV 7.4 7 - 12 fL 09/07/2024 7:15 PM EDT [facility] Neutrophils % 71.0 % 09/07/2024 7:15 PM EDT [facility] Lymphocytes % 19.6 % 09/07/2024 7:15 PM EDT [facility] Monocytes % 6.7 % 09/07/2024 7:15 PM EDT [facility] Eosinophils % 2.2 % 09/07/2024 7:15 PM EDT [facility] Basophils % 0.5 % 09/07/2024 7:15 PM EDT [facility] Neutrophils Absolute (A) 6.8(H) 1.5 - 6.6 10*3/uL 09/07/2024 7:15 PM EDT [facility] Lymphocytes Absolute 1.9 1.0 - 3.5 10*3/uL 09/07/2024 7:15 PM EDT [facility] Monocytes Absolute 0.6 0.0 - 0.9 10*3/uL 09/07/2024 7:15 PM EDT [facility] Eosinophils Absolute 0.2 0.0 - 0.4 10*3/uL 09/07/2024 7:15 PM EDT [facility] Basophils Absolute 0.0 0.0 - 0.2 10*3/uL 09/07/2024 7:15 PM EDT [facility] Differential Type AUTOMATED DIFFERENTIAL 09/07/2024 7:15 PM EDT [facility] Blood Venous blood / Unknown Venipuncture / Unknown 09/07/2024 6:57 PM EDT 09/07/2024 7:01 PM EDT us Spike Gutierrez MD LAB BLOOD ORDERABLES Final Resu lt [facility] [address] [place] [address], * (ABNORMAL) Comprehensive metabolic panel (09/07/2024 6:57 PM EDT) SODIUM 137 134 - 146 mmol/L 09/07/2024 7:24 PM EDT [facility] POTASSIUM 4.7 3.5 - 5.0 mmol/L 09/07/2024 7:24 PM EDT [facility] CHLORIDE 99 98 - 109 mmol/L 09/07/2024 7:24 PM EDT [facility] CARBON DIOXIDE 29 22 - 32 mmol/L 09/07/2024 7:24 PM EDT [facility] ANION GAP 9 5 - 15 mmol/L 09/07/2024 7:24 PM EDT [facility] BLOOD UREA NITROGEN 20 5 - 27 mg/dL 09/07/2024 7:24 PM EDT [facility] CREATININE 0.74 0.40 - 1.00 mg/dL 09/07/2024 7:24 PM EDT [facility] Comment:METHOD TRACEABLE TO IDMS STANDARD GLUCOSE 145(H) 65 - 99 mg/dL 09/07/2024 7:24 PM EDT [facility] CALCIUM 9.3 8.5 - 10.5 mg/dL 09/07/2024 7:24 PM EDT [facility] TOTAL PROTEIN 7.6 6.0 - 8.0 g/dL 09/07/2024 7:24 PM EDT [facility] ALBUMIN 3.6 3.2 - 5.3 g/dL 09/07/2024 7:24 PM EDT [facility] ALKALINE PHOSPHATASE 104 39 - 130 U/L 09/07/2024 7:24 PM EDT [facility] AST 24 <=41 U/L 09/07/2024 7:24 PM EDT [facility] ALT 33(H) <=31 U/L 09/07/2024 7:24 PM EDT [facility] BILIRUBIN,TOTAL 0.5 0.3 - 1.2 mg/dL 09/07/2024 7:24 PM EDT [facility] EGFR Non-Race Dependent 90 >=60 ml/min/1.7 3sq.m 09/07/2024 7:24 PM EDT [facility] Comment: eGFR not reported due to non-numeric value for Creatinine. Reported eGFR is based on the CKD-EPI 2020 equation that does not use a race coefficient. Blood Venous blood / Unknown Venipuncture / Unknown 09/07/2024 6:57 PM EDT 09/07/2024 7:01 PM EDT us Spike Gutierrez MD LAB BLOOD ORDERABLES Final Resu lt [facility] [address] [place] [address], from Last 3 Months Insurance [facility] [id number] Advance Directives * Full Code (Latest Code Status on File) Date Activated Date Inactivated Comments 12/06/2016 2:11 PM 12/08/2016 12:13 PM Care Teams Gis Analyst Relationship Specialty Start Date End Date Pastora Kohler, JOSEFINA-NAIL PROFESSIONAL [address] [place] [address] PCP - General Internal Medicine 09/07/24
--- OUTSIDE RECORDS SUMMARY | 2024-11-03 10:55 | XMS_ITS | Encounter Summary ---
Author Organization [facility] Address [address] [place] [address] Care Team Providers Care Warranty Administrator Name Role Phone Jennifer Christine MD Primary Care Provider [phone] Pastora Kohler CUT OFF SAWYER Unavailable [phone] Pastora Kohler CUT OFF SAWYER Unavailable [phone] Encounter Details Date Type Department Care Team (Late st Contact Info) Description 08/07/2023 [facility] [address] [place] [address] Jennifer Christine MD [address] [place] [address] Social History Tobacco Use Types [...] on filedocumented in this encounter Care Teams Warranty Administrator Relationship Specialty Start Date End Date Jennifer Christine MD [address] [facility] [place], [place] [id number] PCP - General Family Medicine 04/10/23 Pastora Kohler NP [address] [facility] [place], [place] [id number] PCP - [facility] 02/16/23 03/18/80 Pastora Kohler NP [address] [facility] [place] [address] Nurse Practitioner Family Medicine 04/10/23 documented as of this encounter
--- OUTSIDE RECORDS SUMMARY | 2024-11-03 10:55 | XMS_ITS | Encounter Summary ---
Author Organization [facility] Address [address] [place] [address] Care Team Providers Care Gift Shop Clerk Name Role Phone Trent, Judith Cuenca DO Unavailable [phone] Judith Newman DO Primary Care Provider [phone] Jennifer Christine MD Primary Care Provider Pastora Kohler DIETARY INTERNSHIP Unavailable Pastora Kohler DIETARY INTERNSHIP Unavailable Encounter Details Date Type Department Care Team (Late st Contact Info) Description 11/28/2022 Abstract [facility] [address] [place] [address] Sean Torres, SERGIO [address] [place] [address] Social History Tobacco Use Types [...] on filedocumented in this encounter Care Teams Gift Shop Clerk Relationship Specialty Start Date End Date Judith Newman DO [address] [facility] 200 [facility] [place] [address] PCP - [facility] 09/16/21 12/16/22 Judith Newman DO [address] [facility] 200 [facility] [place] [address] PCP - General Family Medicine 06/24/22 04/09/23 Jennifer Christine MD [address] [place], [place] [id number] PCP - General Family Medicine 04/10/23 Pastora Kohler NP [address] [place] [address] PCP - [facility] 02/16/23 03/18/80 Pastora Kohler NP [address] [place] [address] Nurse Practitioner Family Medicine 04/10/23 documented as of this encounter
--- OUTSIDE RECORDS SUMMARY | 2024-11-03 10:55 | XMS_ITS | Encounter Summary ---
Author Organization [facility] Address [address] [place] [address] Care Team Providers Care Parts Classifier Name Role Phone Jennifer Christine MD Primary Care Provider [phone] Pastora Kohler SUPERVISOR WINDING DEPARTMENT Unavailable [phone] Pastora Kohler SUPERVISOR WINDING DEPARTMENT Unavailable [phone] Encounter Details Date Type Department Care Team (Late st Contact Info) Description 03/08/2024 Orders Only [facility] Family Medicine [address] [place] [address] Kori Frederick SUPERVISOR WINDING DEPARTMENT [address] [place] [address] Social History Tobacco Use Types Packs/Day Years [...] Venous blood specimen / Unknown Kori Frederick SUPERVISOR WINDING DEPARTMENT LAB BLOOD ORDERABLES Ed ited Result - Final documented in this encounter Visit Diagnoses Not on filedocumented in this encounter Care Teams Parts Classifier Relationship Specialty Start Date End Date Jennifer Christine MD [address] [place] [address] PCP - General Family Medicine 04/10/23 Pastora Kohler NP [address] [facility] [place] [address] PCP - [facility] 02/16/23 03/18/80 Pastora Kohler NP [address] [place] [address] Nurse Practitioner Family Medicine 04/10/23 documented as of this encounter
--- OUTSIDE RECORDS SUMMARY | 2024-11-03 10:55 | XMS_ITS | Encounter Summary ---
Author Organization [facility] Address [address] [place] [address] Care Team Providers Care Reliability Specialist Name Role Phone Jennifer Christine MD Primary Care Provider Pastora Kohler PYTHON ARCHITECT Unavailable [phone] Pastora Kohler PYTHON ARCHITECT Unavailable Encounter Details Date Type Department Care Team (Late st Contact Info) Description 07/15/2023 Orders Only [facility] Family Medicine [address] [place] [address] Jennifer Christine MD [address] [place] [address] Social History Tobacco Use Types [...] EDT) Anatomical Region Laterality Modality Head Other Jennifer Christine MD OPHTH PHOTOGRAPHY Final Resul t documented in this encounter Visit Diagnoses Not on filedocumented in this encounter Care Teams Reliability Specialist Relationship Specialty Start Date End Date Jennifer Christine MD [address] [place], [place] [id number] PCP - General Family Medicine 04/10/23 Pastora Kohler NP [address] [facility] [place], [place] [address] PCP - [facility] 02/16/23 03/18/80 Pastora Kohler NP [address] [place], [place] [id number] Nurse Practitioner Family Medicine 04/10/23 documented as of this encounter
--- OUTSIDE RECORDS SUMMARY | 2024-11-03 10:55 | XMS_ITS | Encounter Summary ---
Author Organization [facility] Healthcare Address [address] [place] [address] Care Team Providers Care Teacher Assistant Name Role Phone Jennifer Christine MD Primary Care Provider Pastora Kohler APPRAISER IRRIGATION TAX Unavailable [phone] Pastora Kohler APPRAISER IRRIGATION TAX Unavailable Encounter Details Date Type Department Care Team (Late st Contact Info) Description 08/05/2024 Results Follow-Up [facility] Family Medicine [address] [place] [address] Pastora Kohler NP [address] [place] [address] XR shoulder 2+ views right, XR knee 4+ views right Social History Tobacco Use Types Packs/Day Years [...] as of this encounter Miscellaneous Notes * Result Encounter Note - Pastora Kohler NP - 08/05/2024 8:46 AM EDT Perfect thanks * Result Encounter Note - Pastora Kohler NP - 08/05/2024 8:34 AM EDT See other results. * Result Encounter Note - Pastora Kohler NP - 08/05/2024 8:34 AM EDT Let patient know her knee xray was stable and shoulder xray shoulder showed arthritis and find out which ortho she would like to see and put referral in please documented in this encounter Plan of Treatment Not on file documented as of this encounter Visit Diagnoses Not on filedocumented in this encounter Care Teams Teacher Assistant Relationship Specialty Start Date End Date Jennifer Christine MD [address] [place], [place] [id number] PCP - General Family Medicine 04/10/23 Pastora Kohler NP [address] [facility] [place] [address] [address] - [facility] 02/16/23 03/18/80 Pastora Kohler NP [address] [facility] [place] [address] Nurse Practitioner Family Medicine 04/10/23 documented as of this encounter
--- OUTSIDE RECORDS SUMMARY | 2024-11-03 10:55 | XMS_ITS | Clinical Summary ---
Author Organization [facility] Address [address] [facility] [place] [address] Care Team Providers Care Rate Inserter Name Role Phone Pastora Kohler AERONAUTICAL ENGINEERING OFFICER - PROTOTYPE FABRICATOR [facility] Allergies No known active [...] Take 1 tablet by mouth daily Active nystatin (MYCOSTATIN) 882205 UNIT/GM powderIndicatio ns:Tinea corporis Apply 2 times [...] Assessment & Plan: She is managed by [facility]. A1c is high and advised she needs [...] Encounters Date Type Department Care Team Description 09/08/2024 8:30 AM EDT Office Visit [facility] Gynecologic Oncology Services [address] [facility] [address] [place] [address] Jenna Andrade PA-C History of uterine cancer (Primary Dx) from Last 3 Months Immunizations Immunization Administration [...] Passive Smoke Exposure: Never Smokeless Tobacco: Never Tobacco Cessation:Counseling Given: Not Answered Alcohol Use Standard Drinks/Week Comments Not Asked [...] Sign Reading Time Taken Comments Blood Pressure 130/88 09/08/2024 8:34 AM EDT Pulse 78 09/08/2024 8:16 AM EDT Temperature 36.7 C (98.1 F) 09/08/2024 8:16 AM EDT Respiratory Rate 16 07/29/2023 8:23 AM EDT Oxygen Saturation 96% 09/08/2024 8:16 AM EDT Inhaled Oxygen Concentration - - Weight 132 kg (291 lb) 09/08/2024 8:16 AM EDT Height 160 cm (5' 3 ) 09/08/2024 8:16 AM EDT Body Mass Index 51.55 09/08/2024 8:16 AM EDT Plan of Treatment Upcoming Encounters Date Type Department Care Team (Late st Contact Info) Description 01/20/2025 9:30 AM EST Office Visit [facility] WOOD HEEL FLAP RUBBER Oncology [address] [place] [address] Jenna Andrade PA-C [address] [place] [address] Follow up Health Maintenance Due Date Last Done Comments Diabetic foot exam 1970 Depression Monitoring 1972 HIV screen 1975 Diabetic Alb to Cr ratio (uACR) test 1978 Diabetic retinal exam 1978 Hepatitis C screen 1978 DTaP/Tdap/Td vaccine (1 - Tdap) 1979 Colonoscopy 2005 Colorectal Cancer Screen 2005 [...] 15-59) 07/15/2024 07/16/2023 Lipids 07/15/2024 07/16/2023, 06/29/2023 Flu vaccine (#1) 09/16/2024 10/23/2023, 07/2022, 02/26/2022, Additional history exists Breast cancer screen 09/14/2025 09/15/2023, 02/15/20 19 Cervical cancer screen Discontinued HPV (without or with Pap) Discontinued 06/15/2023 Pap smear Discontinued 06/15/2023 COVID-19 Vaccine Completed 11/15/2023, 07/2022, 06/12/2020, Additional history exists Pneumococcal 0-49 years Vaccine Discontinued 08/30/2024 Pneumococcal 50+ years Vaccine Completed 08/30/2024 Hepatitis A vaccine Aged Out No longe [...] HIGH RISK Routine 06/15/2023 12:00 AM EDT WOOD HEEL FLAP RUBBER CYTOLOGY Routine 06/15/2023 12:00 AM EDT from Last 3 Months or Most Recently Relevant to Health Maintenance Results * (ABNORMAL) Hemoglobin A1c (07/16/2023 10:15 AM EDT) Hemoglobin A1C 8.8(H) 4.0 - 6.0 % 07/16/2023 10:15 AM EDT [facility] Estimated Avg Glucose 206 mg/dL 07/16/2023 10:15 AM EDT [facility] Comment: The ADA and AACC recommend providing the estimated average glucose result to permit better patient understanding of their HBA1c result. Blood BLOOD SPECIMEN / Unknown 07/16/2023 10:15 AM EDT 07/16/2023 11:03 AM EDT us Rossi Man Cobau AERONAUTICAL ENGINEERING OFFICER - PROTOTYPE FABRICATOR CHEMISTRY ORDERA BLES Final Result [facility] [address] [place] [address], [facility] [phone] * (ABNORMAL) Lipid Panel (07/16/2023 10:15 AM EDT) Cholesterol, Total 117 0 - 199 mg/dL 07/16/2023 10:15 AM EDT [facility] Comment: Cholesterol Guidelines: <200 Desirable 200-240 Borderline >240 Undesirable HDL 36(L) >40 mg/dL 07/16/2023 10:15 AM EDT [facility] Comment: HDL Guidelines: <40 Undesirable 40-59 Borderline >59 Desirable LDL Cholesterol 60 0 - 100 mg/dL 07/16/2023 10:15 AM EDT [facility] Comment: LDL Guidelines: <100 Desirable 100-129 Near to/above Desirable 130-159 Borderline >159 Undesirable Direct (measured) LDL and calculated LDL are not interchangeable tests. Chol/HDL Ratio 3.0 07/16/2023 10:15 AM EDT [facility] Triglycerides 107 <150 mg/dL 07/16/2023 10:15 AM EDT [facility] Comment: Triglyceride Guidelines: <150 Desirable 150-199 Borderline 200-499 High >499 Very high Based on AHA Guidelines for fasting triglyceride, November 2011. VLDL 21 mg/dL 07/16/2023 10:15 AM EDT [facility] Blood BLOOD SPECIMEN / Unknown 07/16/2023 10:15 AM EDT 07/16/2023 11:03 AM EDT us Rossi Armendariz AERONAUTICAL ENGINEERING OFFICER - PROTOTYPE FABRICATOR CHEMISTRY ORDERA BLES Final Result [facility] [address] [phone] * (ABNORMAL) Comprehensive Metabolic Panel (07/16/2023 10:15 AM EDT) Sodium 139 136 - 145 mmol/L 07/16/2023 10:15 AM EDT [facility] Potassium 4.7 3.7 - 5.3 mmol/L 07/16/2023 10:15 AM EDT [facility] Chloride 103 98 - 107 mmol/L 07/16/2023 10:15 AM EDT [facility] CO2 23 20 - 31 mmol/L 07/16/2023 10:15 AM EDT [facility] Anion Gap 13 9 - 16 mmol/L 07/16/2023 10:15 AM EDT [facility] Glucose 161(H) 74 - 99 mg/dL 07/16/2023 10:15 AM EDT [facility] BUN 21 8 - 23 mg/dL 07/16/2023 10:15 AM EDT [facility] Creatinine 1.0(H) 0.50 - 0.90 mg/dL 07/16/2023 10:15 AM EDT [facility] Est, Glom Filt Rate 64 >60 mL/min/1. 73m2 07/16/2023 10:15 AM EDT [facility] Comment: These results are not intended for [...] 8.6 - 10.4 mg/dL 07/16/2023 10:15 AM EDT [facility] Total Protein 7.9 6.6 - 8.7 g/dL 07/16/2023 10:15 AM EDT [facility] Albumin 4.4 3.5 - 5.2 g/dL 07/16/2023 10:15 AM EDT [facility] Albumin/Globulin Ratio 1.0 1.0 - 2.5 07/16/2023 10:15 AM EDT [facility] Total Bilirubin 0.3 0.00 - 1.20 mg/dL 07/16/2023 10:15 AM EDT [facility] Alkaline Phosphatase 103 35 - 104 U/L 07/16/2023 10:15 AM EDT [facility] ALT 15 10 - 35 U/L 07/16/2023 10:15 AM EDT [facility] AST 18 10 - 35 U/L 07/16/2023 10:15 AM EDT [facility] Blood BLOOD SPECIMEN / Unknown 07/16/2023 10:15 AM EDT 07/16/2023 11:03 AM EDT us Rossi S Donovan Cobau AERONAUTICAL ENGINEERING OFFICER - PROTOTYPE FABRICATOR CHEMISTRY ORDERA BLES Final Result Performing Organization Address City/[facility]/ZIP Co de Phone Number [address] [phone] * Human papillomavirus (HPV) DNA probe thin prep high risk (06/15/2023 12:00 AM EDT) Specimen Description CERVICAL MATERIAL 06/15/2023 12:00 AM EDT [facility] HPV Sample .THIN PREP 06/15/2023 12:00 AM EDT [facility] HPV, Genotype 16 Not Detected Not Detected 06/15/2023 12:00 AM EDT [facility] HPV, Genotype 18 Not Detected Not Detected 06/15/2023 12:00 AM EDT [facility] HPV, High Risk Other Not Detected Not Detected 06/15/2023 12:00 AM EDT [facility] HPV, Interpretation 06/15/2023 12:00 AM EDT [facility] Comment: This test amplifies and detects DNA [...] ORDERABLES Final R esult Performing Organization Address [facility]/ZIP Co de Phone Number [address] [phone] * WOOD HEEL FLAP RUBBER Cytology (06/15/2023 12:00 AM EDT) Cytology Report Path Number: [id number] DIAGNOSIS Imaged ThinPrep Pap - Cervical (1 monolayer slide): Specimen Adequacy: Satisfactory for evaluation. - Endocervical/trans formation zone component present. Descriptive Diagnosis: Negative for intraepithelial lesion or malignancy. Cytotech Screener: EY Electronically Signed Out Courtney Inder FRAZIER(ASCP) ey/06/24/2023 Procedure/Addendum HPV Procedure Report Date [...] or for other forensic [place] [address] . Source of Specimen: A: Imaged ThinPrep Pap - Cervical (1 monolayer slide) HPV Reflex?........... ...........HPV Regardless Clinical History Postmenopausal Z12.4 Encounter for screening for malignant neoplasm of cervix Processing Lab: [address] [address] Interpretation performed at [address] [address] This Pap Test has been evaluated with [...] GYNECOLOGIC CYTOLOGY REPORT Patient [facility]: [facility] Rec[facility] [id number] [facility] ANATOMIC PATHOLOGY [address] [place], [place] [phone] Alicanto CERVICAL MATERIAL 06/15/2023 024 7:12 AM EDT us Marshall Emmanuel MD PATHOLOGY/CYTOLOGY ORDERABLES Final Result [facility] [address] [place] [phone] [place] [address] Alicanto from Last 3 Months or Most Recently Relevant to Health Maintenance Insurance [id number] MEDICARE MEDICARE [facility] Advance Directives * Full Code (Latest Code Status on File) Date Activated Date Inactivated Comments 07/28/2023 6:08 AM 07/29/2023 1:27 PM * Full Code Date Activated Date Inactivated Comments 06/30/2023 10:53 AM 06/30/2023 5:12 PM Care Teams Rate Inserter Relationship Specialty Start Date End Date Pastora Kohler APRN - PROTOTYPE FABRICATOR [address] [place] [address] PCP - General Nurse Practitioner, Family 06/15/23
--- OUTSIDE RECORDS SUMMARY | 2024-11-03 10:55 | XMS_ITS | Encounter Summary ---
Author Organization [facility] Address [address] [place] [address] Care Team Providers Care Retail Stocker Name Role Phone Jennifer Christine MD Primary Care Provider [phone] Pastora Kohler COOK ENCHILADA Unavailable [phone] Pastora Kohler COOK ENCHILADA Unavailable [phone] Encounter Details Date Type Department Care Team (Late st Contact Info) Description 05/12/2023 Clinisync Result Encounter [facility] External Department Unsolicited Stefany Webb, DO [address] [place] [address] Dr Igor Nair [place], [place] [id number] Social History Tobacco Use Types Packs/Day Years [...] AM EDT Narrative 05/12/2023 11:36 [place] [address] Electrocardiograph Report Signed Patient: JEANETTE FRAGA MR#: [id number] : 1960 Acct:[id number] Age/Sex: 63 / F ADM Date: 05/12/23 Loc: PST Attending Dr: Stefany Webb D.O. Ordering Physician: Stefany Webb D.O. Date of Service: 05/12/23 Procedure(s): ECG 12 lead Accession Number(s): [id number] cc: [facility] Test Date: 2023-05-12 Pat Name: JEANETTE FRAGA Department: Room: - Gender: Female Grocery Cashier: : 1960 Requested By: STEFANY WEBB Order Number: [id number] Reading MD: PJ CARREON Measurements Intervals [place] Rate: 78 P: 71 OR: 158 QRS: 23 QRSD: 118 T: 57 QT: 360 QTc: 412 Interpretive Statements SINUS RHYTHM MODERATE INTRAVENTRICULAR CONDUCTION DELAY [110+ ms QRS DURATION] No previous ECG available for comparison Electronically Signed On 05-12-2023 23:36:01 EDT by PJ CARREON Dictated By: Pj Carreon D.O. Signed By: 05/12/23 2336 DD/ 1050 TD/TT: Bakery Machine Mechanic Supervisor: Procedure Note Radiology, Radiologist, - 05/12/2023 [facility] [place] [id number] Electrocardiograph Report Signed Patient: JEANETTE FRAGA MMR#: [id number] : 1Acct:[id number] Age/Sex: 63 / FADM Date: 05/12/23 Loc: [facility] Attending Dr: Stefany Webb D.O. Ordering Physician: Stefany Webb D.O. Date of Service: 05/12/23 Procedure(s): ECG 12 lead Accession Number(s): [id number] cc: [facility] Test Date: 2023-05-12 Pat Name: JEANETTE FRAGA Department: Room: - Gender: Female Grocery Cashier: : 1960 Requested By: STEFANY WEBB Order Number: [id number] Reading MD: PJ CARREON Measurements Intervals [place] Rate: 78 P: 71 OR: 158 QRS: 23 QRSD: 118 T: 57 QT: 360 QTc: 412 Interpretive Statements SINUS RHYTHM MODERATE INTRAVENTRICULAR CONDUCTION DELAY [110+ ms QRS DURATION] No previous ECG available for comparison Electronically Signed On 05-12-2023 23:36:01 EDT by PJ CARREON Dictated By: Pj Carreon D.O. Signed By:05/12/23 2336 DD/ 1050 TD/TT: Bakery Machine Mechanic Supervisor: us Stefany Webb DO [facility] Final Result documented in this encounter Visit Diagnoses Not on filedocumented in this encounter Care Teams Retail Stocker Relationship Specialty Start Date End Date Jennifer Christine MD [address] [facility] [place] [id number] PCP - General Family Medicine 04/10/23 Pastora Kohler NP [address] [facility] [place] [address] PCP - [facility] 02/16/23 03/18/80 Pastora Kohler NP [address] [place] [address] Nurse Practitioner Family Medicine 04/10/23 documented as of this encounter
--- OUTSIDE RECORDS SUMMARY | 2024-11-03 10:55 | XMS_ITS | Clinical Summary ---
Author Organization [facility] Healthcare Address [address] [place] [address] Care Team Providers Care Tie Fastener Name Role Phone Jennifer Christine MD Primary Care Provider [phone] Pastora Kohler VENEER REDRIER Unavailable Pastora Kohler VENEER REDRIER Unavailable [phone] Allergies No known active allergies Medications ARIPiprazole (Abilify) 15 MG tablet 1 (one) time each day at the same time Active buPROPion XL (Wellbutrin XL) 300 MG 24 hr tablet Active ergocalciferol (Vitamin D2) 1.25 MG (42096 UT) capsule 08/02/19 23 Active Accu-Chek Guide test strip 10/24/19 23 Active Accu-Chek FastClix Lancets misc 08/22/19 23 Active metFORMIN (Glucophage) 1000 MG tablet 1 (one) time each day at the same time Active nortriptyline (Pamelor) 50 MG capsule Active pregabalin (Lyrica) 75 MG capsule Take 75 mg by mouth in the morning and 75 mg before bedtime. Active tiZANidine (Zanaflex) 4 MG tablet 09/17/19 23 Active oxyCODONE-acetamin ophen (Percocet) 5-325 MG tablet Take 1 tablet by mouth as needed in the morning and 1 tablet as needed at noon and 1 tablet as needed in the evening. 12/11/19 23 Active Semaglutide, 2 MG/DOSE, (Ozempic, 2 MG/DOSE,) 8 MG/3ML solution pen-injector Inject 2 mg under the skin 1 (one) time per week Active insulin degludec (Tresiba) 100 UNIT/ML injectionIndicatio ns:Type 2 diabetes mellitus with hyperglycemia, with long-term current use of insulin (HCC) Inject 48 Units under the skin at bedtime 05/16/19 24 Active metoprolol tartrate (Lopressor) 25 MG tabletIndications: Primary hypertension Take 1 tablet (25 mg) by mouth in the morning and 1 tablet (25 mg) in the evening. Take with meals. 180 tablet 3 01/13/20 24 Active hydrOXYzine HCl (Atarax) 25 MG tablet Take 25 mg by mouth every 6 (six) hours if needed for anxiety PRN Active Klayesta 906488 UNIT/GM powder APPLY EXTERNALLY TO AFFECTED SKIN AREAS TWICE DAILY NEEDED 05/04/19 25 Active losartan-hydroCHLO ROthiazide (Hyzaar) 50-12.5 MG tabletIndications: Primary hypertension Take 1 tablet by mouth Daily 90 tablet 1 06/17/19 25 Active amLODIPine (Norvasc) 5 MG tabletIndications: Primary hypertension Take 1 tablet (5 mg) by mouth Daily 90 tablet 1 08/03/19 25 Active traMADol (Ultram) 50 MG tablet 50 mg 09/09/19 25 Active atorvastatin (Lipitor) 40 MG tabletIndications: Mixed hyperlipidemia TAKE 1 TABLET BY MOUTH EVERY DAY 90 tablet 1 09/24/19 25 Active meloxicam (Mobic) 15 MG tabletIndications: Left hip pain Take 1 tablet (15 mg) by mouth Daily 30 tablet 10/25/19 25 Active meloxicam (Mobic) 15 MG tabletIndications: Left hip pain Take 1 tablet (15 mg) by mouth Daily 30 tablet 08/31/19 25 025 Discontin ued(Reord er) Active Problems Problem Noted Date Diagnosed Date Chronic kidney disease, stage 2 (mild) Assessment & Plan (08/30/2024 7:28 PM EDT): -drink plenty of fludis. Good control of DM and HTN. buttermaker continuous churn (current) use of insulin 04/12/2024 Assessment & Plan (08/30/2024 7:28 PM EDT): Stage 3a chronic kidney disease 04/12/2024 Type 2 diabetes mellitus without complications [...] 11/03/2022 Primary hypertension 11/03/2022 Assessment & Plan (08/30/2024 7:28 PM EDT): Orders: Comprehensive metabolic panel; Future Lipid panel; [...] compliance discussed. Patient voices understanding of meds. 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 Muscle pain 11/03/2022 Obesity 11/03/2022 Osteoarthritis of knee 11/03/2022 Recurrent major depressive disorder, in partial remission 11/03/2022 Assessment & Plan (08/30/2024 7:28 PM EDT): -manage by psych Assessment & Plan (05/15/2023 10:06 PM EDT): On abilify, wellbutrin, hydroxyzine Shoulder joint pain 11/03/2022 Type 2 diabetes mellitus wit h hyperglycemia, with long-term current use of insulin 11/03/2022 Assessment & Plan (08/30/2024 7:28 PM EDT): Orders: Comprehensive metabolic panel; Future Lipid panel; [...] include blindness, heart disease and kidney disease. Assessment & Plan (05/16/2023 4:57 PM EDT): She is managed by [facility]. A1c is high and advised she needs to get this under control and discussed this being a risk factor for her surgery. She is taking multiple medications and recently started on ozempic. Says her BS are better now. On metformin, tresiba, and ozempic. Cellulitis of right lower extremity 12/06/2016 Chronic pain disorder 11/13/2016 Assessment & Plan (08/30/2024 7:28 PM EDT): -managed by pain management Generalized anxiety disorder 11/13/2016 Severe episode of recurrent major depressive disorder, without psychotic features 11/13/2016 Hip pain 01/08/2016 Cervical radiculopathy 01/18/2014 Carpal tunnel syndrome 10/03/2011 Encounters Date Type Department Care Team Description 10/22/2024 Refill [facility] [address] [place] [address] Lalitha Trujillo NP Left hip pain 09/26/2024 Results Follow-Up [facility] [address] [place] [address] Lalitha Trujillo NP XR lumbar spine 4+ views w flexion extension 09/26/2024 Travel 09/23/2024 3:30 PM EDT Office Visit [facility] [address] [place] [phone] Lalitha Trujillo NP Acute left-sided low back pain with left-sided sciatica (Primary Dx) 09/23/2024 1:30 PM EDT Ancillary Procedure [facility] [address] [facility] [place] [address] Acute left-sided low back pain with left-sided sciatica 09/23/2024 Bamboo flowsheet [facility] [address] [facility] [address] [place] [address] Lalitha Trujillo NP 09/23/2024 Travel 09/22/2024 Refill [facility] [address] [place] [address] Jennifer Christine MD Mixed hyperlipidemia 09/14/2024 2:00 PM EDT Office Visit [facility] [address] [place] [address] Lalitha Trujillo NP Left leg cellulitis (Primary Dx) 09/14/2024 Bamboo flowsheet [facility] [address] [place] [address] Lalitha Trujillo NP 09/14/2024 Travel 09/08/2024 Telephone [facility] [address] [place] [address] Teri Main MA 08/31/2024 Results Follow-Up [facility] [address] [place] [place] [address] Lalitha Trujillo NP Comprehensive metabolic panel, Lipid panel, TSH W/REFLEX TO FT4, Additional followed-up results: 2 08/30/2024 12:30 PM EDT Office Visit [facility] [address] [facility] [address] [place] [phone] Lalitha Trujillo NP Encounter for wellness examination (Primary Dx); Primary hypertension ; Type 2 diabetes mellitus with hyperglycemia, with long-term current use of insulin (HCC); History of uterine cancer; Morbid obesity ([facility]); Mixed hyperlipidemia ; Encounter for screening mammogram for malignant neoplasm of breast; Encounter for immunization; Left hip pain; Recurrent major depressive disorder, in partial remission ; intermediate (current) use of insulin (HCC); Chronic kidney disease, stage 2 (mild); Chronic pain disorder 08/30/2024 Bamboo flowsheet [facility] [address] [facility] [place] [address] Lalitha Trujillo NP 08/30/2024 Travel 08/24/2024 8:30 AM EDT Office Visit [facility] [address] [place] [phone] Sean Torres PA S/P arthroscopy of right shoulder (Primary Dx) 08/24/2024 Bamboo flowsheet [facility] [address] [place] [phone] Sean Torres PA 08/24/2024 Travel 08/05/2024 Results Follow-Up [facility] [address] [facility] [place] [phone] Pastora Kohler NP XR shoulder 2+ views right, XR knee 4+ views right from Last 3 Months Immunizations Immunization Administration Dates Next Due Influenza, Unspecified 10/17/2016 Influenza, injectable, quadr ivalent, preservative free 11/21/2022,02/26/2022,12/09/2016 Influenza, seasonal, injectable 01/03/2014 Influenza, seasonal, injecta ble, preservative free 01/03/2015 Pneumococcal Conjugate PCV 20 08/30/2024 SARS-COV-2 (COVID-19) vaccin e, mRNA, spike protein, [...] Answer Date Recorded Patient Health Questionnaire-2 Score 1 09/23/2024 Comments Unknown Sex and Gender Information Value Date Recorded Sex Assigned at Not on file Legal Sex Female 6:56 PM EDT Gender Identity Not on file Sexual Orientation Not on file Last Filed Vital Signs Vital Sign Reading Time Taken Comments Blood Pressure 138/74 09/23/2024 3:25 PM EDT Pulse 87 09/23/2024 3:25 PM EDT Temperature 36.3 C (97.3 F) 08/30/2024 12:31 PM EDT Respiratory Rate 18 09/14/2024 2:08 PM EDT Oxygen Saturation 95% 09/23/2024 3:25 PM EDT Inhaled Oxygen Concentration - - Weight 130 kg (287 lb) 09/23/2024 3:25 PM EDT Height 160 cm (5' 3 ) 09/14/2024 2:08 PM EDT Body Mass Index 50.84 09/14/2024 2:08 PM EDT Plan of Treatment Health Maintenance Due Date Last Done Comments CT Colonography 1960 Colonoscopy 1960 Colorectal Cancer Screening 1960 FIT-DNA 1960 FIT 1960 FOBT 1960 Sigmoidoscopy 1960 Mammogram 09/14/2024 09/15/2023, 02/14/2019 Influenza Vaccine (#1) 2024 3, 02/26/2022, 12/09/2016, Additional history exists Diabetes: Hemoglobin A1C 11/30/2024 025, 05/25/2024, 02/04/2024, Additional history exists Diabetes: Urine Protein Screening 03/01/2025 025 Diabetes: Retinopathy Screening 05/04/2025 Medicare Annual Wellness (AWV) 08/30/2025 08/30/2024 , 08/30/2024 Pap Smear 06/14/2026 06/15/2023, 06/15/2023 Cervical Cancer Screening 06/14/2028 HPV/Cotest 06/14/2028 06/15/2023, 06/15/2023 Procedures Procedure Name Priority Date/Time Associated Diagnosis Comments XR LUMBAR SPINE 4+ VIEWS WITH FLEXION EXTENSION Routine 09/23/2024 4:11 PM EDT Acute left-sided low back pain with left-sided sciatica CBC (INCLUDES DIFF/PLT) Routine 08/30/2024 12:53 PM EDT Encounter for wellness examination HEMOGLOBIN A1C Routine 08/30/2024 12:53 PM EDT Encounter for wellness examination Type 2 diabetes mellitus with hyperglycemia, with long-term current use of insulin ([facility]) Morbid obesity ([facility]) TSH W/REFLEX TO FT4 Routine 08/30/2024 1 2:53 PM EDT Encounter for wellness examination Morbid obesity ([facility]-HCC) LIPID PANEL Routine 08/30/2024 12:53 PM EDT Encounter for wellness examination Primary hypertension Type 2 diabetes mellitus with hyperglycemia, with long-term current use of insulin (HCC) Morbid obesity ([facility]) Mixed hyperlipidemia COMPREHENSIVE METABOLIC PANEL Routine 08/30/2024 12:53 PM EDT Encounter for wellness examination Primary hypertension Type 2 diabetes mellitus with hyperglycemia, with long-term current use of insulin ([facility]) Morbid obesity ([facility]-H[facility]) MICROALBUMIN / CREATININE URINE RATIO Routine 03/01/2024 10:24 AM EST Type 2 diabetes mellitus with diabetic mononeuropathy, with long-term current use of insulin (HCC) BI MAMMOGRAM SCREENING TOMOSYNTHESIS BILATERAL Routine 09/15/2023 11:20 AM EDT Encounter for screening mammogram for malignant neoplasm of breast DIABETIC RETINOPATHY SCREENING - OU - BOTH EYES Routine 05/05/2023 2:04 PM EDT from Last 3 Months or Most Recently Relevant to Health Maintenance Results * XR lumbar spine 4+ views w flexion extension (09/23/2024 4:11 PM EDT) Anatomical Region Laterality Modality Spine, L-spine Radiographic Leny ging 09/23/2024 4:58 PM EDT Impressions 09/23/2024 5:00 PM EDT No acute fracture. Internal fixation L1-S1 as discussed. Grade 1 L5 spondylolisthesis. ELECTRONICALLY SIGNED BY: Pj Dang MD Narrative 09/23/2024 5:00 PM EDT Lumbar spine, 7 views. HISTORY: Low back [...] extension positioning. Diffuse disc space narrowing L5-S1. Procedure Note SignPj avina MD - 09/23/2024 Lumbar spine, 7 views. HISTORY: Low back pain radiating into left lower extremity. Surgery 7 years ago. FINDINGS: Bilateral posteriorly placed pedicle screws, L1-S1, secured to bilateralvertical rods, and 2 horizontal brackets. L5-S1 intervertebral disc spacedevice identified. No acute fracture, dislocation, or bone lesionvisualized. 6 mm anterolisthesis, L5 on S1 visualized on neutral, flexion,and extension positioning. Diffuse disc space narrowing L5-S1. IMPRESSION: No acute fracture. Internal fixation L1-S1 as discussed. Grade 1 L5 spondylolisthesis. ELECTRONICALLY SIGNED BY: Pj Dang MD Lalitha Trujillo NP IMG XR PROCEDURES Final Result * TSH W/REFLEX TO FT4 (08/30/2024 12:53 PM EDT) [facility] TSH W/REFLEX TO FT4 1.41 0.40 - 4.50 mIU/L [facility] 08/30/2024 12:5 3 PM EDT 08/30/2024 12:54 PM EDT Narrative Resulting Agency Comment Performing Organization Information Site ID: QPT Name: [facility] Address: [address] [place] [address], [address] [place] [phone] Director: Tobin Stratton MD Lalitha Trujillo NP LAB BLOOD ORDERABLES Final Resu lt [facility] * (ABNORMAL) CBC and differential (08/30/2024 12:53 PM EDT) [facility] WHITE BLOOD CELL COUNT 10.3 3.8 - 10.8 Thousand/u L [facility] RED BLOOD CELL COUNT 4.12 3.80 - 5.10 Million/uL [facility] HEMOGLOBIN 11.4(L) 11.7 - 15.5 g/dL [facility] HEMATOCRIT 37.1 35.0 - 45.0 % [facility] MCV 90.0 80.0 - 100.0 fL [facility] MCH 27.7 27.0 - 33.0 pg [facility] MCHC 30.7(L) 32.0 - 36.0 g/dL [facility] Comment: For adults, a slight decrease in the calculated MCHC value (in the range of 30 to 32 g/dL) is most likely not clinically significant; however, it should be interpreted with caution in correlation with other red cell parameters and the patient's clinical condition. RDW 15.7(H) 11.0 - 15.0 % [facility] PLATELET COUNT 304 140 - 400 Thousand/u L [facility] MPV 9.6 7.5 - 12.5 fL [facility] ABSOLUTE NEUTROPHILS 7,004 1,500 - 7,800 cells/uL [facility] ABSOLUTE LYMPHOCYTES 2,297 850 - 3,900 cells/uL [facility] ABSOLUTE MONOCYTES 711 200 - 950 cells/uL [facility] ABSOLUTE EOSINOPHILS 237 15 - 500 cells/uL [facility] ABSOLUTE BASOPHILS 52 0 - 200 cells/uL [facility] NEUTROPHILS 68 % [facility] LYMPHOCYTES 22.3 % [facility] MONOCYTES 6.9 % [facility] EOSINOPHILS 2.3 % [facility] BASOPHILS 0.5 % [facility] Blood Venous blood specimen / Unknown 08/30/2024 12:53 PM EDT 08/30/2024 12:54 PM EDT Narrative Resulting Agency Comment Performing Organization Information Site ID: QPT Name: [facility] Address: [address] [place] [address], [address] [place] [phone] Director: Tobin Stratton MD Lalitha Trujillo NP LAB BLOOD ORDERABLES Final Resu lt Performing Organization Address [facility] de Phone Number [facility] * (ABNORMAL) Hemoglobin A1c (08/30/2024 12:53 PM EDT) Hemoglobin A1C 8.4(H) <5.7 % [facility] Comment: For someone without known diabetes, a hemoglobin A1c value of 6.5% or greater indicates that they may have diabetes and this should be confirmed with a follow-up test. For someone with known diabetes, a value <7% indicates that their diabetes is well controlled and a value greater than or equal to 7% indicates suboptimal control. A1c targets should be individualized based on duration of diabetes, age, comorbid conditions, and other considerations. Currently, no consensus exists regarding use of hemoglobin A1c for diagnosis of diabetes for children. Blood Venous blood specimen / Unknown 08/30/2024 12:53 PM EDT 08/30/2024 12:54 PM EDT Narrative Resulting Agency Comment Performing Organization Information Site ID: QPT Name: [facility] Address: [address] [place] [address], [address] [place] [phone] Director: Tobin Stratton MD Lalitha Trujillo NP LAB BLOOD ORDERABLES Final Resu lt Performing Organization Address [facility] de Phone Number [facility] * (ABNORMAL) Lipid panel (08/30/2024 12:53 PM EDT) CHOLESTEROL, TOTAL 137 <200 mg/dL [facility] HDL CHOLESTEROL 48(L) > OR = 50 mg/dL [facility] TRIGLYCERIDES 68 <150 mg/dL [facility] LDL CHOLESTEROL 75 mg/dL (calc) [facility] Comment: Reference range: <100 Desirable range <100 mg/dL for primary prevention; <70 mg/dL for patients with CHD or diabetic patients with > or = 2 CHD risk factors. LDL-C is now calculated using the Ortiz calculation, which is a validated novel method providing better accuracy than the Friedewald equation in the estimation of LDL-C. Aris SS et al. BERT. 2013;310(19): 7658-1568 (http://education.Fundamo (Proprietary)/faq/IAU465) CHOL/HDLC RATIO 2.9 <5.0 (calc) [facility] NON HDL CHOLESTEROL 89 <130 mg/dL (calc) [facility] Comment: For patients with diabetes plus 1 major ASCVD risk factor, treating to a non-HDL-C goal of <100 mg/dL (LDL-C of <70 mg/dL) is considered a therapeutic option. Blood Venous blood specimen / Unknown 08/30/2024 12:53 PM EDT 08/30/2024 12:54 PM EDT Narrative Resulting Agency Comment Performing Organization Information Site ID: QPT Name: [facility] Address: [address] [place] [address], [address] [place] [phone] Director: Tobin Stratton MD us Lalitha Trujillo NP LAB BLOOD ORDERABLES Final Resu lt [facility] * Comprehensive metabolic panel (08/30/2024 12:53 PM EDT) [facility] Glucose 82 65 - 99 mg/dL [facility] Comment: Fasting reference interval BUN 23 7 - 25 mg/dL [facility] Creatinine 0.88 0.50 - 1.05 mg/dL [facility] EGFR 73 > OR = 60 mL/min/1. 73m2 [facility] BUN/CREATININE RATIO SEE NOTE: 6 - 22 (calc) [facility] Comment: Not Reported: BUN and Creatinine are within reference range. Sodium 138 135 - 146 mmol/L [facility] Potassium, Bld 4.8 3.5 - 5.3 mmol/L [facility] Chloride 101 98 - 110 mmol/L [facility] Carbon Dioxide 29 20 - 32 mmol/L [facility] Calcium 9.4 8.6 - 10.4 mg/dL [facility] PROTEIN, TOTAL 7.3 6.1 - 8.1 g/dL [facility] ALBUMIN 4.1 3.6 - 5.1 g/dL [facility] GLOBULIN 3.2 1.9 - 3.7 g/dL (calc) [facility] ALBUMIN/GLOBULIN RATIO 1.3 1.0 - 2.5 (calc) [facility] BILIRUBIN, TOTAL 0.3 0.2 - 1.2 mg/dL [facility] ALKALINE PHOSPHATASE 102 37 - 153 U/L [facility] AST 18 10 - 35 U/L [facility] ALT 23 6 - 29 U/L [facility] Blood Venous blood specimen / Unknown 08/30/2024 12:53 PM EDT 08/30/2024 12:54 PM EDT Narrative Resulting Agency Comment Performing Organization Information Site ID: QPT Name: [facility] Address: [address] [place] [address], [address] [place] [phone] Director: Tobin Stratton MD Lalitha rTujillo NP LAB BLOOD ORDERABLES Final Resu lt [facility] * (ABNORMAL) Microalbumin / creatinine urine ratio [...] Performing Organization Information Site ID: QPT Name: [facility] Address: [address] [place] [address], [address] [place] [phone] Director: Tobin Stratton MD us Kori Nunes Yoly VENEER REDRIER LAB URINE ORDERABLES Fi nal Result [facility] * Bilateral screening mammogram with tomosynthesis (09/15/2023 11:20 AM EDT) Anatomical Region Laterality Modality Breast Bilateral Mammography 09/15/2023 1:11 PM EDT Impressions 09/16/2023 8:35 AM EDT BIRADS 1 - Negative Follow-up: Routine Screening Mamm Board Certified Radiologists. Accredited by the ACR and FDA. MAMMOGRAPHY IS VERY IMPORTANT TO YOUR HEALTH. THE [employer] GUIDELINES RECOMMEND THAT WOMEN 40 [...] IS VERY IMPORTANT TO YOUR HEALTH. THE [employer]IETY[employer]UIDELINES RECOMMEND THAT WOMEN 40 YEARS [...] Recently Relevant to Health Maintenance Insurance [facility] [place] [address] Care Teams Tie Fastener Relationship Specialty Start Date End Date Jennifer Christine MD [address] [facility] [place] [id number] PCP - General Family Medicine 04/10/23 Pastora Kohler NP [address] [facility] [place] [id number] PCP - [facility] 02/16/23 03/18/80 Pastora Kohler NP [address] [place] [address] Nurse Practitioner Family Medicine 04/10/23
--- OUTSIDE RECORDS SUMMARY | 2024-11-03 10:55 | XMS_ITS | Encounter Summary ---
Author Organization [facility] Healthcare Address [address] [place] [address] Care Team Providers Care Warehouse Processor Name Role Phone Jennifer Christine MD Primary Care Provider [phone] Pastora Kohler CANINE DEPUTY Unavailable [phone] Pastora Kohler CANINE DEPUTY Unavailable [phone] Reason for Visit * Reason Onset Date Comments Med Refill 10/22/2024 Encounter Details Date Type Department Care Team (Late st Contact Info) Description 10/22/2024 Refill [facility] Family Medicine [address] [place] [address] Lalitha Trujillo NP [address] [place] [address] Left hip pain Social History Tobacco Use Types Packs/Day Years [...] as of this encounter Visit Diagnoses Diagnosis Left hip pain Pain in joint, pelvic region and thigh documented in this encounter Additional Health Concerns Assessment Noted Time PHQ-9 Depression Total Score: 1 08/31/19 25 12:00 PM EDT documented as of this encounter Care Teams Warehouse Processor Relationship Specialty Start Date End Date Jennifer Christine MD [address] [place] [address] PCP - General Family Medicine 04/10/23 Pastora Kohler NP [address] [place] [address] PCP - [facility] 02/16/23 03/18/80 Pastora Kohler NP [address] [place] [address] Nurse Practitioner Family Medicine 04/10/23 documented as of this encounter
--- OUTSIDE RECORDS SUMMARY | 2024-11-03 10:55 | XMS_ITS | Encounter Summary ---
Author Organization [facility] Healthcare Address [address] [place] [address] Care Team Providers Care Manager Philosophy Name Role Phone Jennifer Christine MD Primary Care Provider [phone] Pastora Kohler MASTER COOK Unavailable [phone] Pastora Kohler MASTER COOK Unavailable [phone] Encounter Details Date Type Department Care Team (Late st Contact Info) Description 09/26/2024 Results Follow-Up [facility] Family Medicine [address] [place] [address] Lalitha Trujillo NP [address] [place], [place] [id number] XR lumbar spine 4+ views w flexion extension Social History Tobacco Use Types Packs/Day Years [...] encounter Miscellaneous Notes * Telephone Encounter - Mable Suárez MA - 09/26/2024 1:40 PM EDT Pt understands. Pt states that insurance doesn't cover all of her physical therapy and that it would cost too much. * Telephone Encounter - Mable Suárez MA - 09/26/2024 1:40 PM EDT ----- Message from Lalitha Trujillo sent at 09/26/2024 8:33 AM EDT ----- Spondylolisthesis which is where the vertebra slips forward over the one below it. Recommend physical therapy ----- Message ----- From: Interface, Incoming Img Kandisne Background Sent: 09/23/2024 5:02 PM EDT To: Lalitha Trujillo NP documented in this encounter Plan of Treatment Not on file documented as of this encounter Visit Diagnoses Not on filedocumented in this encounter Additional Health Concerns Assessment Noted Time PHQ-9 Depression Total Score: 1 08/31/19 25 12:00 PM EDT documented as of this encounter Care Teams Manager Philosophy Relationship Specialty Start Date End Date Jennifer Christine MD [address] [place] [address] PCP - General Family Medicine 04/10/23 Pastora Kohler NP [address] [place] [address] PCP - [facility] 02/16/23 03/18/80 Psatora Kohler NP [address] [facility] [place] [address] Nurse Practitioner Family Medicine 04/10/23 documented as of this encounter
--- OUTSIDE RECORDS SUMMARY | 2024-11-03 10:55 | XMS_ITS | Encounter Summary ---
Author Organization [facility] Address [address] [place] [address] Care Team Providers Care Oral Surgery Assistant Name Role Phone Judith Newman DO Unavailable [phone] Judith Newman DO Primary Care Provider [phone] Jennifer Christine MD Primary Care Provider Pastora Kohler BEAN PICKER MACHINE OPERATOR Unavailable [phone] Pastora Kohler BEAN PICKER MACHINE OPERATOR Unavailable Encounter Details Date Type Department Care Team ([facility] st Contact Info) Description 10/22/2022 Abstract [facility] Family Medicine [address] [place] [address] Judith Newman DO [address] [phone] Social History Tobacco Use Types Packs/Day Years [...] on filedocumented in this encounter Care Teams Oral Surgery Assistant Relationship Specialty Start Date End Date Judith Newman DO [address] [facility] [address] [place] [address] PCP - [facility] 09/16/21 12/16/22 Judith Newman DO [address] [facility] [address] [place] [phone] PCP - General Family Medicine 06/24/22 04/09/23 Jennifer Christine MD [address] [place], [place] [phone] PCP - General Family Medicine 04/10/23 Pastora Kohler NP [address] [facility] [place] [address] [address] [facility] 02/16/23 03/18/80 Pastora Kohler NP [address] [place] [address] Nurse Practitioner Family Medicine 04/10/23 documented as of this encounter
--- OUTSIDE RECORDS SUMMARY | 2024-11-03 10:55 | XMS_ITS | Encounter Summary ---
Author Organization [facility] Address [address] [place] [address] Care Team Providers Care Extractor And Wringer Operator Name Role Phone Jennifer Christine MD Primary Care Provider [phone] Pastora Kohler MOTORBOAT MECHANIC INBOARD Unavailable [phone] Pastora Kohler MOTORBOAT MECHANIC INBOARD Unavailable [phone] Encounter Details Date Type Department Care Team (Late st Contact Info) Description 06/03/2024 Abstract [facility] [address] [place] [address] Pastora Kohler MOTORBOAT MECHANIC INBOARD [address] [place] [address] Social History Tobacco Use Types [...] on filedocumented in this encounter Care Teams Extractor And Wringer Operator Relationship Specialty Start Date End Date Jennifer Christine MD [address] [facility] [place], [place] [phone] PCP - General Family Medicine 04/10/23 Pastora Kohler NP [address] [facility] [place], [place] [phone] PCP - [facility] 02/16/23 03/18/80 Pastora Kohler NP [address] [facility] [place] [address] Nurse Practitioner Family Medicine 04/10/23 documented as of this encounter
--- OUTSIDE RECORDS SUMMARY | 2024-11-03 10:55 | XMS_ITS | Encounter Summary ---
Author Organization [facility] Address [id number] [address] [place] [address] Care Team Providers Care Tree Fruit And Nut Farming Supervisor Name Role Phone Pastora Kohler APRN-WOOL GRADER Primary Care Pro vider Encounter Details Date Type Department Care Team (Late st Contact Info) Description 06/03/2023 Orders Only [facility] Gynecology Oncology [address] [phone] Ref Prov, [place] [address] Social History Tobacco Use Types Packs/Day Years [...] on filedocumented in this encounter Care Teams Tree Fruit And Nut Farming Supervisor Relationship Specialty Start Date End Date Pastora Kohler APRN-PAM [address] [place] [address] PCP - General Internal Medicine 09/07/24 documented as of this encounter
--- OUTSIDE RECORDS SUMMARY | 2024-11-03 10:56 | XMS_ITS | Clinical Summary ---
Author Organization [facility] Address [address] [place] [address] Care Team Providers Care Tier Lift Truck Operator Name Role Phone AdanDago reynagaCasper Primary Care Provider [phone] Allergies No known active allergies Medications lisinopril(PRINI [...] 2010 Shingrix Vaccine (1 of 2) 2010 Influenza Vaccine (#1) 2024 RSV Vaccine (1 - 1-dose 75+ series) 2035 Insurance PPO OOS Care Teams Tier Lift Truck Operator Relationship Specialty Start Date End Date Dago Keith [address] [place] [phone] PCP - General 02/15/08
--- OUTSIDE RECORDS SUMMARY | 2024-11-03 10:56 | XMS_ITS | Encounter Summary ---
Author Organization [facility] Address [address] [place] [address] Care Team Providers Care Time Clock Repairer Name Role Phone Jennifer Christine MD Primary Care Provider [phone] Pastora Kohler STRAIN TECHNICIAN Unavailable [phone] Pastora Kohler STRAIN TECHNICIAN Unavailable [phone] Encounter Details Date Type Department Care Team (Late st Contact Info) Description 04/23/2023 Clinisync Result Encounter [facility] External Department Unsolicited Stefany Webb, DO [address] [place] [address] Dr Igor Nair [place], [place] [id number] Social History Tobacco Use Types Packs/Day Years [...] PM EST Narrative 04/23/2023 12:10 [place] [address] Ultrasound Report Signed Patient: JEANETTE FRAGA MR#: [id number] : 1960 Acct:[id number] Age/Sex: 63 / F ADM Date: 04/23/23 Loc: [facility] Attending Dr: Stefany Webb D.O. Ordering Physician: Stefany Webb D.O. Date of Service: 04/23/23 Procedure(s): US pelvis w/ transvaginal Accession Number(s): [id number] cc: [facility] ; Stefany Webb D.O. [place] [address] Patient Name: JEANETTE FRAGA MRN: [id number] date: 1960 Sex: F Assigned Patient Location: [facility] Current Patient Location: [facility] Accession/Order Number: [id number] Exam Date: 04/23/2023 10:35 Report Date: 04/23/2023 [...] Signed By: 04/23/23 1210 DD/ 1208 TD/TT: Sales Enablement Consultant: Procedure Note Radiology, Radiologist, MD - 04/23/2023 [place] [address] Ultrasound Report Signed Patient: JEANETTE FRAGA MMR#: [id number] : 1960cct:[id number] Age/Sex: 63 / FADM Date: 04/23/23 Loc: [facility] Attending Dr: Stefany Webb D.O. Ordering Physician: Stefany Webb D.O. Date of Service: 04/23/23 Procedure(s): US pelvis w/ transvaginal Accession Number(s): [id number] cc: [facility] ; Stefany Webb D.O. [place] [id number] Patient Name: JEANETTE FRAGA MRN: [id number] date: 1960 Sex: F Assigned Patient Location: [facility] Current Patient Location: [facility] Accession/Order Number: [id number] Exam Date: 04/23/2023 10:35 Report Date: 04/23/2023 [...] JORDEN LOYOLA Date: 04/23/2023 12:08 Dictated By: Jordne Loyola M.D. Signed By:04/23/23 1210 DD/ 1208 TD/TT: Sales Enablement Consultant: us Stefany Jon DO [facility] Final Result documented in this encounter Visit Diagnoses Not on filedocumented in this encounter Care Teams Time Clock Repairer Relationship Specialty Start Date End Date Jennifer Christine MD [address] [place] [address] PCP - General Family Medicine 04/10/23 Pastora Kohler NP [address] [facility] [place] [address] PCP - [facility] 02/16/23 03/18/80 Pastora Kohler NP [address] [place] [address] Nurse Practitioner Family Medicine 04/10/23 documented as of this encounter
--- OUTSIDE RECORDS SUMMARY | 2024-11-03 11:10 | XMS_ITS | CCD ---
Author Organization [facility] Team Providers Care Set Up Mold Technician Name Role Phone QUE BLAKE Unavailable Unavailable GECHASEINGQUE Unavailable Unavailable SELF, REFERRED Unavailable Unavailable OLIVE, ROSALES Unavailable Unavailable MT Unavailable Unavailable QUE BLAKE Unavailable Unavailable WIEPKING, LAUREN Unavailable Unavailable SELF, REFERRED Unavailable Unavailable JULIEN GARCÍA Unavailable Unavailable OLIVE, ROSALES Unavailable Unavailable QUE BLAKE Unavailable Unavailable QUE BLAKE Unavailable Unavailable QUE BLAKE Unavailable Unavailable OLIVE, ROSALES Unavailable Unavailable Clifford Munoz Jr. Unavailable Clifford Munoz Unavailable Lili Burgos Unavailable [facility] Unava ilable OLIVIER .DR ADAM Admitting Unavailable AGUAYO ., DR ADAM Liu Attending Unavailable HERNANDEZ ., ALICIA Consulting Unavailable LAKSHMIPATHY ., NARENDRANATH Consulting Daphne vailable [facility] Unava ilable LAKSHMIPATHY ., NARENDRANATH Admitting Daphne vailable LAKSHMIPATHY ., NARENDANA Attending Daphne vailable [facility] Unava ilable DR BLANE THOAMS Consulting Unavailable HERNANDEZ ., ALICIA Admitting Unavailable HERNANDEZ .ALICIA Attending Unavailable HERNANDEZ ., ALICIA Consulting Unavailable [facility] Unava ilable HALKER ., JASON Attending Unavailable HALKER ., JASON Consulting Unavailable LAKSHMIPATHY ., NARENDRANATH Admitting Daphne vailable [facility] Unava ilable HALKER ., JASON Admitting Unavailable HALKER ., JASON Attending Unavailable LAKSHMIPATHY ., NARENDRANATH Consulting Daphne vailable [facility] Unava ilable AGUAYO ., DR ADAM Liu Admitting Unavailable AGUAYO ., DR ADAM Liu Attending Unavailable HERNANDEZ ., ALICIA Consulting Unavailable [facility] Unava ilable HERNANDEZ ., ALICIA Consulting Unavailable AGUAYO ., DR ADAM Liu Attending Unavailable AGUAYO ., DR DAAM Liu Admitting Unavailable [facility] Unava ilable AGUAYO ., DR ADAM Liu Admitting Unavailable AGUAYO ., DR ADAM Liu Attending Unavailable HERNANDEZ ., ALICIA Consulting Unavailable [facility] Unava ilable LAKSHMIPATHY ., NARENDRANATH Admitting Daphne vailable LAKSHMIPATHY ., NARENDRANATH Attending Daphne vailable LAKSHMIPATHY ., NARENDRANATH Consulting Daphne vailable Martine Tobias Unavailable Rumschlag, DO Kalie Primary Care Provider Majo, DO Kalie Attending Provider DO Judith Patel Primary Care Provider [facility] Attending Provider Rumcurtislanelly, DO Kalie Primary Care Provider Rummerry, DO Kalie Attending Provider [phone] Stoney Turner Unavailable Rumschlag, DO Kalie Primary Care Provider Rumschlag, DO Kalie Attending Provider Shawn Webb Attending Provider EDWIN MORENO Attending Unavailable AMANDA JUDITH G Referring Unavailable AMANDAGREGGEE G Primary Care Unavailable Jose F ROCHA - PAM, Pastora Nunes Primary Care P rovider PASTORA KOHLER Primary Care Unavailab LOPEZ Noe Referring Unavailable Jennifer Cabrera MD Primary Care Provider Jose F SENIOR DATASTAGE DEVELOPER, Pastora Nunes Unavailable Jose F SENIOR DATASTAGE DEVELOPER, Pastora Nunes Unavailable Lauren Torres PA-C Attending Provider Kohler SENIOR DATASTAGE DEVELOPER-[place] Primary Care Provider Judith Patel DO Primary Care Provider [phone] DAUDI, SAYEEMA N Attending Unavailable DAUDI, SAYEEMA [...] Care Unavailab Lauren Montiel PA-C Attending Provider [phone] Kohler SENIOR DATASTAGE DEVELOPER-[place] Primary Care Provider Lili Burgos APRN Attending Provider RICA RODRIGUEZ Attending Unavailable JENNIFER CABRERA Primary Care Unavailable RICA RODRIGUEZ Admitting Unavailable RICA RODRIGUEZ Attending Unavailable Salvador Galo Unavailable JENNIFER CABRERA Primary Care Unavailable RICA RODRIGUEZ Admitting Unavailable AKANKSHA SANFORD Attending Unavailable JUDITH PATEL Referring Unavailable JUDITH PATEL Primary Care Unavailable AKANKSHA SANFORD Attending Unavailable JUDITH PATEL Referring Unavailable JUDITH PATEL Primary Care Unavailable CANDI VYAS Attending Unavailable PASTORA KOHLER Primary Care Unavailab dusty RODRIGUEZ JR., RICA Nair Attending Unavaila SEAN Lee Attending Unavailable JR. JENNIFER, RICA Nair Referring Unavaila moi OSORIO, ALEXANDRA Nunes Attending Unavailab dusty OSORIO, ALEXANDRA Nunes Referring Unavailab dusty RODRIGUEZ JR., RICA Nair Attending Unavaila BLANE Orosco Attending Unavailable BRIAN, LAUREN Bloom Attending Unavailable KAMPFER, LALITHA Attending Unavailable DEBORAHJENNIFER Attending Unavailable TORRES, LAUREN Bloom Attending Unavailable TORRES, LAUREN Bloom Attending Unavailable BRIAN, LAUREN Bloom Attending Unavailable JOSE F, PASTORA Nunes Attending Unavailab dusty KOHLER, PASTORA Nunes Referring Unavailab le BRIAN, LAUREN Bloom Attending Unavailable KAMPFER, LALITHA Attending Unavailable KAMPFER, LALITHA Attending Unavailable KAMPFER, LALITHA Attending Unavailable KAMPFER, LALITHA Referring Unavailable BRIAN, LAUREN Bloom Attending Unavailable BRIAN, LAUREN Bloom Referring Unavailable TORRES, LAUREN Bloom Referring Unavailable TORRES, LAUREN Bloom Attending Unavailable BRIAN, LAUREN Bloom Attending Unavailable BRIAN, LAUREN Bloom Referring Unavailable PASTORA KOHLER Attending Unavailab dusty OSORIO, ALEXANDRA Nunes Attending Unavailab dusty OSORIO, ALEXANDRA Nunes Attending Unavailab le BRIAN, LAUREN Bloom Attending Unavailable Kaya Tomlinson RN Attending Provider Franklin KAMARACShama Attending Provider Jose F SENIOR DATASTAGE DEVELOPER-[place] Primary Care Provider Pastora Kohler Primary Care Unavailable Shama Allen Admitting Unavailable Shama Allen Attending Unavailable Lili Burgos Admitting Unavailable Lili Burgos Attending Unavailable Pastora Kohler Primary Care Unavailable Lauren Torres Admitting Unavailable Brian, Lauren Attending Unavailable Medications Current Medications Medication Drug [...] by mouth three times daily as needed Start: 01-07-2023 take 1 tablet by mickey [...] take 1 tablet by mouth once daily Start: 01-28-2023 take 1 tablet by mickey [...] EVERY DAY 90 tablet 1 09/23/2024 Active benzonatate 100 mg oral capsule (6 [...] Active Start: 12-17-2020 take 1 tablet by mouth once da sathish cephalexin 500 mg oral capsule (8 sources) [...] D Start: 04-06-2023 take 1 tablet by [facility] once daily Start: 08-01-2022 Start: 08-01-2022 take 1 capsule by [facility] every week Start: 08-01-2022 take 1 capsule by [facility] every week Cholecalciferol 1.25 MG (14098 UT) 1 capsule Orally weekly for 56 days Then OtC 4000 u daily therafter Jul, Active take 2 tablets by [facility] every twenty-four hours Vitamin D3 50 MCG (2000 UT) 2 tablets Orally Once a day Not-Taking/PRN take 1 capsule by [facility] every week Cholecalciferol 100 MCG (4000 UT) 1 capsule Orally weekly for 56 days Then OtC 4000 u daily therafter Active take 1 capsule by [facility] every week Cholecalciferol 50 MCG (2000 UT) 1 capsule Orally weekly for 56 days Then OtC 4000 u daily therafter Active take 1 capsule by [facility] every week Cholecalciferol 1.25 MG (37738 UT) 1 capsule Orally weekly for 56 [...] 08-01-2022 ergocalciferol (Carlyn min D2) 1.25 MG (17451 UT) capsule 08/01/2022 Active Start: 08-01-2022 take 1 capsule by mo [facility] every week ergocalciferol (Vitamin D2) 1.25 MG (88206 UT) capsule TAKE 1 CAPSULE BY MOUTH [...] take 1 tablet by mouth once daily take 1 tablet by mickey th once [...] Antihistamine Start: 05-11-2023 take 1 tablet by mickey th three times daily as needed Start: 04-22-2023 End: 05-31-2024 take 1 capsule by mouth three times daily as needed hydrOXYzine pamoate (Vistaril) 25 MG capsule Take 25 mg by mouth 3 (three) times a day as needed 04/22/2023 05/31/2024 Discontinued (Therapy completed) Start: 04-22-2023 take 1 capsule by mo [facility] four times daily as needed hydrOXYzine pamoate [...] insulin aspart, human 100 unt/ml pen injector (16 sources) Insulin Analog Start: 04-07-2023 FIASP FLEXTOUC H 100 UNIT/ML SOPN Inject into the skin 4 times daily (after meals and at bedtime) Inject per sliding scale 0 04/07/2023 Active Start: 04-07-2023 End: 05-11-2023 3 ml insulin degludec 100 un t/ml pen injector (20 sources) Insulin Analog Start: 12-30-2023 Start: 09-23-2023 End: 12-30-2023 Insulin Degludec (Tresiba Flextouch U-100) 100 unit/mL (3 mL) insulin pen Discontinued 50 UNIT SUBCUT Daily September 23, 2023 2:35pm December 30, 2023 10:54am PAP approved thru 02/16/2024 Start: 05-16-2023 insulin deglud ec (Tresiba) 100 UNIT/ML injection Indications: Type 2 diabetes mellitus with hyperglycemia, with long-term current use of insulin (HCC) Inject 48 Units under the skin at bedtime 05/16/2023 Active Start: 05-11-2023 End: 09-23-2023 Insulin Degludec (Tresiba Flextouch U-100) 100 unit/mL (3 mL) insulin pen Discontinued 48 UNIT SUBCUT Daily May 11, 2023 12:57pm September 23, 2023 2:37pm PAP approved thru 02/16/2024 Start: 05-11-2023 End: 05-11-2023 Insulin Degludec (Tresiba Flextouch U-100) 100 unit/mL (3 mL) insulin pen Discontinued 50 UNIT SUBCUT Daily May 11, 2023 11:44am May 11, 2023 1:01pm Start: 04-06-2023 End: 05-11-2023 Insulin Degludec (Tresiba Flextouch U-100) 100 unit/mL (3 mL) insulin pen Discontinued 54 UNIT SUBCUT Daily April 06, 2023 1:00am May 11, 2023 11:50am Start: 04-15-2022 inject 54 [IU] by desai [...] tablet by mouth twice daily at mealtime Start: 12-17-2020 End: 12-21-2023 take 1 tablet [...] oral tablet (20 sources) beta-Adrenergic Karrie Start: 12-25-2022 End: 01-11-2024 take 1 tablet by mouth in the morning metoprolol tartrate (Lopressor) 25 MG tablet Indications: Primary hypertension Take 1 tablet (25 mg) by mouth in the morning and 1 tablet (25 mg) in the evening. Take with meals. 180 tablet 3 01/13/2024 Active mupirocin 0.02 mg/mg topical ointment (1 source) RNA Synthetase Inhibitor Antibacterial mupirocin (BACTROBAN) 2 % ointment Apply 1 each topically [...] 2023 11:50am take 1 capsule by mo [facility] every twenty-four hours Nortriptyline HCl 75 MG 1 capsule Orally Once a day Active nystatin 100 unt/mg topical powder (20 sources) Polyene Antifungal Start: 05-03-2024 Klayesta 10 0000 UNIT/GM powder APPLY EXTERNALLY TO AFFECTED SKIN AREAS TWICE DAILY NEEDED 05/03/2024 Active Start: 06-15-2023 nystatin (MYCO STATIN) 430782 UNIT/GM powder Indications: Kelsea albicans infection Apply 2 times daily to abdominal and breast folds 60 g 0 06/15/2023 Active omeprazole 20 mg delayed release oral capsule (20 sources) Proton Pump Inhibitor Start: 12-17-2020 End: 04-06-2023 take 1 capsule by mouth once daily at bedtime End: 06-03-2023 take 1 tablet by mouth [...] take 1 capsule by mouth twice daily 1 mg dose 1.5 ml semaglutide 1.34 mg/ml pen injector (2 sources) Start: 05-07-2020 OZEMPIC 1 mg/dose (2 mg/1.5 mL) pen injector 05/07/2020 Active Semaglutide (4 sources) Start: 04-28-2024 inject 2 mg by subcutaneous injection every week Start: 03-30-2024 End: 04-28-2024 inject 2 mg by subcutaneous injection every week Semaglutide (Ozempic) 2 mg/dose (8 mg/3 mL) pen injector Discontinued 2 MG SUBCUT every week 3 March 30, 2024 11:03am April 28, 2024 11:27am JAYSON Xcerion PATIENT ASSISTANCE Start: 05-11-2023 End: 03-30-2024 inject 2 mg by subcutaneous injection every week Semaglutide (Ozempic) 2 mg/dose (8 mg/3 mL) pen injector Discontinued 2 MG SUBCUT every week May 11, 2023 1:01pm March 30, 2024 11:05am PAP approved thru 02/16/2024 Start: 04-06-2023 End: 05-11-2023 inject 2 mg by subcutaneous injection every week Semaglutide (Ozempic) 2 mg/dose (8 mg/3 mL) pen injector Discontinued 2 MG SUBCUT every week April 06, 2023 1:00am May 11, 2023 1:01pm Semaglutide (Ozempic) 2 mg/dose (8 mg/3 mL) pen injector (18 sources) Start: 04-28-2024 inject 2 mg by subcutaneous injection every week Semaglutide (Ozempic) 2 mg/dose (8 mg/3 mL) pen injector Active 2 MG SUBCUT every week 3 April 28, 2024 11:25am *PT TO USE Yhat PATIENT ASSISTANCE VOUCHER FOR 1 MONTH SUPPLY Start: 03-30-2024 End: 04-28-2024 inject 2 mg by subcutaneous injection every week Semaglutide (Ozempic) 2 mg/dose (8 mg/3 mL) pen injector Discontinued 2 MG SUBCUT every week 3 March 30, 2024 11:03am April 28, 2024 11:27am JAYSON Xcerion PATIENT ASSISTANCE Start: 05-11-2023 End: 03-30-2024 inject [...] alpha-2 Adrenergic Agonist Start: 09-16-2022 End: 06-30-2023 take 1 tablet by mouth three times daily as needed take 1 tablet by mickey th every [...] tablet by mickey th every six hours Floweree Active take 1 tablet by mickey th twice daily as needed Floweree 5-325 MG 1 tablet as needed Orally bid Active [id number] actuat albuterol 0.09 mg/actuat metered dose [...] 2023 5:13pm fluocinonide 1 mg/ml topical cream (14 sources) Corticosteroid Start: 12-17-2020 End: 12-30-2023 Fluocinonide [...] Active propranolol hydrochloride 10 mg oral tablet (14 sources) beta-Adrenergic Karrie Start: 12-17-2020 End: 12-17-2020 Propranolol 10 mg tablet Discontinued MG December 17, 2020 12:00am December 17, 2020 11:44am Start: 12-17-2020 End: 12-17-2020 Propranolol Discontinued MG TABLET December 17, 2020 12:00am December 17, 2020 11:44am Semaglutide (14 sources) Start: 12-17-2020 End: 04-06-2023 inject 1 [...] (acute kidney injury)] Episodic Administrative/socia l admission (18 sources) Dietary counseling and surveillance; Translations: [Patient [...] 02-23-2008 Resolved: 10-28-2021 Chronic Heart valve disorders (20 sources) Aortic valve [...] sources) Long-term current use of insulin; Translations: [group home (current) use of insulin] Onset: 04-12-2024 05-11-2023 Episodic Other aftercare (15 sources) 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; Translations: [Long-term (current) use of insulin] Onset: 11-21-2020 Resolved: 10-28-2021 Episodic Other aftercare (5 sources) 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 status; Translations: [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] 05-11-2023 Episodic Other connective tissue disease (1 source) Presence of right artificial knee joint; Translations: [PRESENCE OF RIGHT ARTIFICIAL KNEE JOINT] Onset: 09-20-2016 Chronic Other connective tissue disease (14 sources) History of total knee arthroplasty; Translations: [...] 09-08-2016 Resolved: 11-21-2020 Chronic Unclassified (1 source) group home (current) use of oral hypoglycemic drugs; Translations: [DIABETES EDUCATION COORDINATOR (CURRENT) USE OF ORAL HYPOGLYCEMIC DRUGS] Onset: [...] 09-20-2016 Episodic Genitourinary symptoms and ill-defined conditions (6 sources) Proteinuria, unspecified; Translations: [Dysuria] Onset: 11-21-2020 Resolved: 11-21-2020 Episodic Mood disorders (8 sources) Mood disorders Onset: 08-30-2024 08-30-2024 Other connective tissue disease (1 source) Other [...] Test Name Value Interpretation Reference Range Facility Magnetic resonance imaging r eportOrdered By: Chalino Peacock on 10-31-2024 Study report [facility] [place] [address] MRI Report Signed Patient: Lesli Clay Omayra#: [id number] : 1960 Acct:[id number] Age/Sex: 64 / F ADM Date: 5 Loc: MR Room: Type: [facility] Attending Dr: Shama SANZ Copies to: [facility]~ Ordering Provider: Shama E Tiffany, SENIOR DATASTAGE DEVELOPER-C Date of Service: 10/31/24 MR/MR lumbar spine wo con: LUMBAR STENOSIS W/NEURO CLAUDICATION ([id number]) XR/XR pre/post mri xray: LUMBAR STENOSIS W/NEURO [...] Peacock M.D. 10/31/2024 4:31 PM Dictation Location: [place] [address] Transcribed By: [facility] 10/31/24 163 Dictated By: Chalino Peacock MD 10/31/24 161 Signed By: 10/31/241630 [facility] Work Phone: XR pre/post mri xrayon 10-31 XR pre/post mri xray [facility] [place] [address] MRI Report Signed Patient: Lesli Clay MR#: [id number] : 1960 Acct:[id number] Age/Sex: 64 / F ADM Date: 10/31/24 Loc: Room: Type: [facility] Attending Dr: Shama SANZ Copies to: [facility] Ordering Provider: [facility] Date of Service: 10/31/24 MR/MR lumbar spine wo con: LUMBAR STENOSIS W/NEURO CLAUDICATION ([id number]) XR/XR pre/post mri xray: LUMBAR STENOSIS W/NEURO CLAUDICATION MR lumbar spine wo con, XR pre/post mri xray 10/31/2024 8:56 AM SIGNS AND SYMPTOMS: LUMBAR STENOSIS W/NEURO CLAUDICATION POST XRAY COMPARISON: MRI 09/19/2022, myelogram 10/30/2022 FINDINGS: [...] Hardware artifact partially obscured evaluation. Redemonstration of a circumferential disc bulge with facet hypertrophy. There is [...] recess narrowing, correlate with possible left L4 and L5 radiculopathy. Please note that multiple levels difficult to evaluate due to hardware artifacts and may obscure left-sided nerve root impingement. Correlation with clinical exam findings recommended. If there is persistent/continued clinical concern, repeat myelogram may be considered. Impression dictated by: Chalino Peacock M.D. 10/31/2024 4:31 PM Dictation Location: [place] [address] Transcribed By: [facility] 10/31/24 1631 Dictated By: Chalino Peacock MD 10/31/24 1615 Signed By: 10/31/24 1631 Normal [facility] XR LUMBAR SPINE 4+ VIEWS WIT H [...] BY AUTOMATED COUNT 0.0 10*3/uL Normal 0.0-0.2 [facility] Comment on above: Performed By: #### C BCA #### [facility] ([address] [address] VIR BASOPHILS RELATIVE PERCENT BY AUTOMATED COUNT 0.5 % Normal [facility] Comment on above: Performed By: #### C BCA #### [facility] ([address] [address] VIR CELLAVISION DIFFERENTIAL TYPE AUTOMATED DIFFERENTIAL Normal [facility] Comment on above: Performed By: #### C BCA #### [facility] ([address] [address] VIR Eosinophils (Bld) [#/Vol] 0.2 10*3/uL Normal 0.0-0.4 [facility] Comment on above: Performed By: #### C BCA #### [facility] ([address] [address] VIR EOSINOPHILS RELATIVE PERCENT BY AUTOMATED COUNT 2.2 % Normal [facility] Comment on above: Performed By: #### C BCA #### [facility] ([address] [address] VIR Erythrocyte distribution width (RBC) [Ratio] 17.0 % High 11.5-15 [facility] Comment on above: Performed By: #### C BCA #### [facility] ([address] [address] VIR Hematocrit (Bld) [Volume fraction] 34.2 % Low 35-47 [facility] Comment on above: Performed By: #### C BCA #### [facility] ([address] [address] VIR Hemoglobin (Bld) [Mass/Vol] 11.3 g/dL Low 11.7-15.5 [facility] Comment on above: Performed By: #### C BCA #### [facility] ([address] [address] VIR LYMPHOCYTES ABSOLUTE COUNT (10*3/UL) BY AUTOMATED COUNT 1.9 10*3/uL Normal 1.0-3.5 [facility] Comment on above: Performed By: #### C BCA #### [facility] ([address] [address] VIR LYMPHOCYTES RELATIVE PERCENT BY AUTOMATED COUNT 19.6 % Normal [facility] Comment on above: Performed By: #### C BCA #### [facility] ([address] [address] VIR MCH (RBC) [Entitic mass] 27.2 pg Normal 27-34 [facility] Comment on above: Performed By: #### C BCA #### [facility] ([address] [address] VIR MCHC (RBC) [Mass/Vol] 33.0 g/dL Normal 32-36 [facility] Comment on above: Performed By: #### C BCA #### [facility] [address] VIR MCV (RBC) [Entitic vol] 83 fL Normal 80-100 [facility] Comment on above: Performed By: #### C BCA #### [facility] ([address] [place] [address] VIR MONOCYTES ABSOLUTE COUNT (10*3/UL) BY AUTOMATED COUNT 0.6 10*3/uL Normal 0.0-0.9 [facility] Comment on above: Performed By: #### C BCA #### [facility] ([address] [place] [address] VIR MONOCYTES RELATIVE PERCENT BY AUTOMATED COUNT 6.7 % Normal [facility] Comment on above: Performed By: #### C BCA #### [facility] ([address] [place] [address] VIR NEUTROPHILS ABSOLUTE COUNT BY AUTOMATED COUNT 6.8 10*3/uL High 1.5-6.6 [facility] Comment on above: Performed By: #### C BCA #### [facility] ([address] [address] VIR NEUTROPHILS RELATIVE PERCENT BY AUTOMATED COUNT 71.0 % Normal [facility] Comment on above: Performed By: #### C BCA #### [facility] ([address] [place] [address] VIR Platelet mean volume (Bld) [Entitic vol] 7.4 fL Normal 7-12 [facility] Comment on above: Performed By: #### C BCA #### [facility] ([address] [place] [place] [address] VIR Platelets (Bld) [#/Vol] 294 10*3/uL Normal 150-450 [facility] Comment on above: Performed By: #### C BCA #### [facility] ([address] [place] [address] VIR RBC COUNT 4.14 X10E12/L Normal 3.8-5.2 [facility] Comment on above: Performed By: #### C BCA #### [facility] ([address] [place] [place] [address] VIR WBC (Bld) [#/Vol] 9.6 10*3/uL Normal 4-11 [facility] Comment on above: Performed By: #### C BCA #### [facility] ([address] [place] [place] [address] VIR COMPREHENSIVE METABOLIC PANE Gonzalo 09-07-2024 Albumin [Mass/Vol] 3.6 g/dL Normal 3.2-5.3 [facility] Comment on above: Performed By: #### C MP #### [facility] ([address] [place] [place] [address] VIR ALP [Catalytic activity/Vol] 104 U/L Normal 39-130 [facility] Comment on above: Performed By: #### C MP #### [facility] ([address] [place] [place] [address] VIR ALT [Catalytic activity/Vol] 33 U/L High <=31 [facility] Comment on above: Performed By: #### C MP #### [facility] ([address] [place] [address] VIR Anion gap [Moles/Vol] 9 mmol/L Normal 5-15 [facility] Comment on above: Performed By: #### C MP #### [facility] ([address] [place] [place] [address] VIR AST [Catalytic activity/Vol] 24 U/L Normal <=41 [facility] Comment on above: Performed By: #### C MP #### [facility] ([address] [address] VIR Bilirubin [Mass/Vol] 0.5 mg/dL Normal 0.3-1.2 [facility] Comment on above: Performed By: #### C MP #### [facility] ([address] [place] [address] VIR Calcium [Mass/Vol] 9.3 mg/dL Normal 8.5-10.5 [facility] Comment on above: Performed By: #### C MP #### [facility] ([address] [place] [place] [address] VIR Chloride [Moles/Vol] 99 mmol/L Normal 98-109 [facility] Comment on above: Performed By: #### C MP #### [facility] ([address] [place] [address] VIR CO2 [Moles/Vol] 29 mmol/L Normal 22-32 [facility] Comment on above: Performed By: #### C MP #### [facility] ([address] [place] [address] VIR Creatinine [Mass/Vol] 0.74 mg/dL Normal 0.40-1.00 [facility] Comment on above: Result Comment: METH OD TRACEABLE TO IDMS STANDARD Performed By: #### C MP #### [facility] ([address] [place] [address] VIR GFR/1.73 sq M.predicted among non-blacks MDRD (S/P/Bld) [Vol rate/Area] 90 mL/min/{1.73_m2} Normal >=60 [facility] Comment on above: Result Comment: eGFR not reported due to non-numeric value for Creatinine. Reported eGFR is based on the CKD-EPI 2021 equation that does not use a race coefficient. Performed By: #### C MP #### [facility] ([address] [place] [address] VIR Glucose [Mass/Vol] 145 mg/dL High 65-99 [facility] Comment on above: Performed By: #### C MP #### [facility] ([address] [address] VIR Potassium [Moles/Vol] 4.7 mmol/L Normal 3.5-5.0 [facility] Comment on above: Performed By: #### C MP #### [facility] ([address] [address] VIR Protein [Mass/Vol] 7.6 g/dL Normal 6.0-8.0 [facility] Comment on above: Performed By: #### C MP #### [facility] ([address] [address] VIR Sodium [Moles/Vol] 137 mmol/L Normal 134-146 [facility] Comment on above: Performed By: #### C MP #### [facility] ([address] [address] VIR Urea nitrogen [Mass/Vol] 20 mg/dL Normal 5-27 [facility] Comment on above: Performed By: #### C MP #### [facility] [facility] ([address] [address] VIR LACTATE W/ REFLEXon 09-08-19 25 LACTATE W/REFLEX 1.3 mmol/L Normal 0.4-2.0 [facility] Comment on above: Order Comment: Resul t did not trigger repeat Lactate, re-order if needed. Performed By: #### L ACTS #### [facility] ([address] [address] VIR Laboratory - Hematology and Cell countsOrdered By: Allison Teixeira on 08-30-2024 HbA1c (Bld) [Mass fraction] 8.4 % [facility] XR KNEE 4+ VIEWS RIGHTon XR KNEE [...] Coding Summaryon 06-22-2024 Coding Summary HTMLBase 64 KuaoeirbZYr0cZf+PGhlYWQ+P L4YDUXgN87puTRygW6jF8LDXR lOSywgQVBQTElOSyIgbmFtZT1 kaXNjZXJu IC8+MG7fTYQoXwjbwIYxi3U5u GA7K15uut1uNHgisZF4QCOtPq Jvqzyiw9mtxLp0YBykHnrlZoF t NGAtlC20YNU3qN36Od19cJOkd TLcg6npaLo6RwIdTZDmQNY9aO daMFxsp9LkQKMqE67fnAZqe7M 6 FOWdeLdxpPCxBcLfbTE1oA6sP Rxmunawl4bjjewsWwy6ib29pC Gda4K2fLC9V8CcbsJ3CZQvwES g MlrefLMCvS3pyyneh8rjkhbrB fQjKGBdOAf6EPw2DYKllMcyYw TeZB07JCV7MPGkgkDbM9BwAWT s xVacByK0g7W8Za8MK1GRIqekR 1VNTUFSWTwvdGQ+SS83vu73V1 PsZznrBch3GOIfDXB8wMJ7iP2 n QPUzXTpbe6W7zTC1L1PcnoNjc l3ai7nnZMJsUWtoD38mgSYbw9 D0OXOoaPK6KMSwhSrhOgInlM5 3 Oyc+ZYHccPytl1BsNhmbb6kvi 4xpfUp8HxwnSRWrzhJxxWunHT U9d3NhFq4yXNEcbHT7mAG0sV6 i KvGqXgO3AMjcN360CoRdwTNkK rifK34yK4YmyAR+LTQyLvk3FW PboZazII9lN5KoDHUlpvajaUM m hVslOS2pYHXywisvPGMdnQ5tG VMuG4e0TpYwNsS4OUewR4KwCK PkkuriSm55fE4hMeErZyS2VOr u L1UbchC9RKIpoCOdJDvjUFC2V 85du9T9KTRdGINsZSA3dEQ6iH 1hbGlnbjogbGVmdDsgdmVydGl j JFubYBqhH655QRIdwSdlVhPzX GluZyBEYXRlOiAgMDUvMDcvMj AyNTwvdGQ+QDBrHSL1oMpcQYU n uNZdPRzmBm3dsPsfwPjbLH4jF OQupxvvFJQjhW1oFEGzqROhyL moRL7uIHWcyhdng246GcJbTBI 0 LJYonGDuH4TkiV7bPqPkDWPrN TUkR7LebIKmCTxvK500TNizWi K1AIUizeYtV0IsUVEsnGpwVhC 0 k9Y7La6Qb2MevabjC0ZzjPMfN jBtVajkOYn5L1CeLxmigVR+PC 81UFZeIE80TSz3UCI8oGenGBd i EFJnQ9LkjT4pEcIwHRClCBJlM yc+PHRhYmxlIHdpZHRoPScxMD OsRkLnbIvyPF9vWh5wPJSeWZU v eKygfTVqUtKsv9byORPbZPfiA G1kbCroM7WudRQ8NJPap4w0Oc 29Y49wA2XvyOV+WSFjfNU7yXK 0 yA9gOkMeJlM1JCitO736XrKyd ZXwUozkj1avk2zopEl4KxF6DM NcreByfWjoCEZ1g8InAn58J94 s IHdpZHRoPSIxNSUiIHZhbGlnb a1pnH2zAl4+DEKfmYU9qBV1oB 3qYtNdPgD6MDtoI971KqYapVH v Lpltn9cim4acqDn9MqRwRGLck zZbgXkqUDM9i4NaEc02S0RiqH wgz0YjWcz4zj47sEJen5V8aSS 9 U2McLTXuwtwmmXRqkMlzPW7zB UXmembdSWGffC9uKGDgG2n4Db TmIbP5CXgfX2TsasG1LLRbkWH g DLEdlBPAkR5zuwvfk0fxpjzaT pRxLPZpHCv5WDj1IBDwbNxaMw KgOIK4MtS1WET8rGRliV7slQr n fmmzeT8tPsa+XJR1vECwfADMF E3jUhuqtUD+KUMiOUR2wXqaQU syITYvpT8dBMGxD8e3NbIrJkQ 1 AUkrE3GrvpD7JMMxsZXbTMBbq WQWrD9vmjpoj1rvphqeIgOdRT WgYGn4LZf4GYFxjEwjBlMxJIT 0 YdI4XHB1dIMzrT6vdDqzkinco G9wOyc+UkxcePhfOSO1ZEt8V6 EpGpy0HLYdsZzuXC2tgZBnSBb u Nv6icIsaoPedKH4rLQRczghlc 973YuObm5nzVILmyELeJPvyPN L6N09gy1V0RIJrZSGnQVQ4jPK 4 aY5kbHhbucampEGekHxtxfKvy TqrDAasIAadD283UZMqzSntEy OaWSa4T2YjGvk8WNFbgZzlVG9 n aCIfMAopIk2mcRrqoRgdUI9oG OOcslvde202DiUjj3uzVXRknE BjUNocXJC8M36px3L4GFAeQHV w UHH5aXG8aD0orJtirsfcdSBdn VaggqEbyTveMJgoSNhiD735KX CpfGqqOwVvmZo2Y6MgAok8EAJ z dGzkCU8ucIYgDCghIk1idTbfn GvdPJ4jZDHtptsuy566RlBlf8 kwVOIcgHVpGAzpYKP5W03sy1F 6 QSMpCKOfNGJ5sCL7pX3tlRjar jogbGVmdDsgdmVydGljYWwtYW wgX135URDkpFrlDeYxqTdycnW g QIoiQXh1L8SfRjyenLA+PC90Y RJjQN40pOCmaHAld2skhJy4Mw SmVRUvMSI2xVygOOdio8OgQAK t T49ztIDwz5B8KWRhlHrmhIFnI iImfVY4bT4fWIpognodg2dpea mcMlweq5kzhs59pP52V46gFRl p LKIqXGXoXFUxFZNzyDswnm9hw G9wIi8+CZAfoGF2wPR1bT2mPX OxWnW9SDxvJ814LsEmgCUmBtz j g2bqs6yjzOh4WeN2IATgybZfo CooBYH5o2IsHu47X95hBNopWK TvNYFrKNIgPBGzgHcvsy8anN0 w Ii8+PPIipOV8kQT3tQ0uAhWyN bJ6RYljG153TsCftQVuUgbrN4 3qK5QtpMK+VUEgNio2KVVdvGb s FC4urCEcOSulMt2aCFJ1PhIxU iNfBMaxY3TsQCGqbqluhzkzjG W3KDAeRBMmdC12Hn0cfCvwBKT w lYZDsG3lywuvv0jfupzdHxCyF CAmTYz4ISm9TQMigDwyLoVsYZ T9YeA0UHJ3uNOnjF9ngCrvgnk g tA8wM2KfOZAqeqpzPh66nO5bD vLpZeJ9VDhbLwi+HP2KGAGBTX FLTICMHBWLBDVIGQ4VRW87Y3D k Dpu6PIXiuHiaCA4gcGBzYBgoS i1yyGmtnOzxFT1aANAdgvjeZW GmrL6sQSVlbYQbrSrcED3pLQV p xqatl991ZrIwYCS7RPJjsJDxK 1CmcL3dYeCxPFXhLELqG6NlbI BnQQsqZ003SLqiTdU2DTRxhjM p U9KxRKRwxOgmIpR9k7N2Vu0fH Z1wWV3xTRMgZM67YX46gSZfv3 M3dBW9O2LvQKJrkqzcnribtVL 6 KAQrMDFmwG67zOPsSUlbFi9ol 4D7g058IAZjHVDszP95Ln0bsW ojHAEomBFQgJ4kpmllq7piies g DtYrTRTmZTf8AJd9RARjuYkaS wVrRHE2QdU9ATG2bDQaeJ6gmK yjxlbjjR3rSct+NjQgWWVhcnM 8 B0VdHwq9DWBtdUxrTN4ujCBeW TalDi6keIcnmZqxJE5xQQZlzm hlDCKybL9vJBGrfBQxuNmpOF5 w ZIJmrdrqx576LbTkMWY9WZSuz DJsU1MkeW0vLjUuAJDoWDTbL7 YlaEXwQJntC831JXbmTcB5OLV l vnFmA0VtMZLgbUdkOsO2b2H7X h4JGY7QWDU4L1GfSws4VEAcoP ylPK6cqNMmJEnwBw0mbXiguMc g ZM5xMUHmvbomGHIukK3qCIMwc NLplDonWL3vGOWmaypwl441Ur KgNZA5TESjrWZbQ0EtlV0bKsR j QNHdHYXeO2CiqASuSCdrF977G CrwVfA4NBIyfrRhD7FwXPPvyC pnAnT6l3A0Yj4GQWmjU7TkS2D y eTwvdGQ+KX29yk91J7BlBqejB ld4QYVbTYE5xNE6lS4zQTPpQO gwo2Q0kLW2C8QvlzEnek8gg1x s SQDsMPlrQ72wtWVbf3O4IJMcm WM1QJQyqLfbJsNfzM86Ufo+PG PtjBwfp1PgBfyic7ldx0odiIc 9 MgUvAKOmkxMviCamQLI4l8BpQ a97R19kJQcvKJIoZBQtPKQnFC JooYyhgi6foS3eEu1+PGNvbCB 3 mOF5hK0wTqZxBhS6IEgyS068J vHzeVMcPpszz9lpw1sonMv0Au BcRYNuerHyuMppYNR5v8LjDn5 8 M8YewFdet3EoAkp5dv45cYLoy 4Q4gWO1I9XuQQYgruqklSWkyE gsSW8cQZNdszzxYFDdkX1pICB p U2m2EjYkGvA0LSxtE2LlosL2K EWawIDsCEGobGSTcK9tzimsb2 uujtkcQkNdIWDcIWs3LNl0QCS s rQdlBhAqTSL6WuJ0NKE2tHVgj B6czRmeqbizdB8fMef+UGh5c2 nzuWXcDG8gfOK0UY96TR88rGL g w7S6gSZ6B9VxEPBqmslaueljr OR1ORAeZIZetK42Pl4osWcoAi 1kIKLrKNV5NJRnqILtD7MvoD8 y BwIjLEGyBYLnR4OuyTJuAAdsV 027GFcxWjE8TMFcssUwN9OxZS YzaJupEwD8i8U4Gs3CGL71UE7 0 ER74jXVrd7F2eUO7B9RrXAIta jnpjigwjMU9FWEvFFWylA92Ba 7wgFwsUi9nCCRoUEZ4MHDgwQJ z L8OnoC4dEsIvCMOvDOOdU1War PPkNYzaO806FOmiBeG1XRGrpg KjG8QrOLJvkFvfHjX0k4F6Go2 N Ii23GW63CV12hDXpp5K5nQC2L 3SeIGFkchpbhjduvEA9UEAiYA MsaE21Xp9fyDrkQb7zBAMsPPS 0 VOJrcUIcF3DbuG8xVzMaRQZcT WHkN3FtxMNwOQdiL772QNfrPv N1XOCnbaUhK2RyFEQfqQmbDsW 0 k2X6Km7LIPjkriw9Q0ScWzwht HI+UW45PQFbYU63dFTntIZyx6 qynEb9HhPcFLNxNPL4rEkiQCi i b3J (more content not included)... [facility] Coding Summary HTMLBase 64 QkbyvksdCLz2wEw+PGhlYWQ+P G4JICWsU94gbRYxxD2vJ8TSUO lOSywgQVBQTElOSyIgbmFtZT1 kaXNjZXJu IC8+EP4gVTVqGcspgUVrx6N4z ML9Q60dil2yYRauwYU4SKZgIx Sdwsugf2pzjYa4PBfiZijbIeU t BJXxtL04RPC3wO01Jm30rEImr BXao3djlJe6EqMeNTIqLDD2zX etWEpsk4GaBEKlQ69xcZHwu1E 6 UUPctOqmnRIlIdSirTR8tV0pR Jnizqual7qftebpFdl4ei30aR Gtv2Q4kBQ3Q9IiutX9JXOooZT g BaiomPFBdO6vwknrp7zwdwvmU aFnGQDtQOx9EVl2EMDexRtgZh VjEU44SCN2DVRlxpBfM0UlGTO s uSyzNnK7i1W4Aa0HZ9MCHumsQ 1VNTUFSWTwvdGQ+MX91pb74Q1 HfLzyfKin3MXUbAVM9oGU5wR2 n WJOfKNmpe6Q2pCH1O4WazpIfp x1bp7yiPKMoCRezQ64ttEMan6 J4LVDbqSU4YXIxhZvbFwZfnQ4 3 Oyc+LBEvpOjhi8GcBamkx6fgo 1iybEw7DnggKFYhibHzdAhwJE N3f1UhCi4nZEFifTF5jDM9kJ8 i KuAnXlW7DArnT887CaAyaBNeL mfcG69wC8VirGC+DCIoMdn8BI QdbWloZF5pN6OmCOPiqkektZC m rLndTK4tLTQisqmcIYZmhY0dY YVvB2m0MwMxAxW1ZMjiY8RkJK RvcmzqBl35kP1aYmDwVqN0GUe u U3AtewA6YVXtnJZsNLhnARA2P 37xt1S1JAEbFMKkOPK4bON3kE 1hbGlnbjogbGVmdDsgdmVydGl j VPkhKXopV105LPZxsUpgLxFzC GluZyBEYXRlOiAgMDUvMDcvMj AyNTwvdGQ+QOKyGXK2lHtbKGV n zIYvJQywAf4ovLkerTmpHG6wM XRxzoyhJNBlfS6jZUGpnCEbvE nrEL7uDIGxfiuar676MwIqZCI 0 KEHfdFTwE6ZagT2eWmIsQIRsL XBqI0RebMTqBCfiJ723HIhlHv D4ETPnttPaM1ZsQTZyaBapQgN 0 c3E4Xv5Un3IgpqmaN1DcmPDzD oFvYyhtFJb9Q7ZkZyvwiWN+PC 78GWMlVG63JUo9RIK5oQuwEFn i YDHmR0HkuY4xSnYsUCBlRVQiX yc+PHRhYmxlIHdpZHRoPScxMD TlKwFzeJljRU0uVd0qJNWaMWL v oGmojAQeDcSil1wvAGCyGSyeJ O9ofXoeU0WelIW7KEBwg0g2Te 47B88hZ4DbeYH+ZOFvlRV2aXX 0 cO4oWyJhCzW3TFkxP254GmEhg EBrAqwqa2kzz5pbgNo0SzM2CN NfucMfiRcuFEN7w2BgEm69Q53 s IHdpZHRoPSIxNSUiIHZhbGlnb c5vpD8rJp5+CPXumQJ0cWH3fS 0pVxYqWwD9DHqdS506RaDxuKM v Onfio8skf8sjiDw3FtWhVKEuh kIzyEmbDPB6d4DgQk17L1YxbJ yyn8JqRdz2ux73uRSpm8O4jDV 9 R5VlFWNnxyjdtKSwsSqeXK2gV HBkfdgjNCBhlO3vAFIuA9i0Jy OhGfW7TAmkO4OskaB5PRXiyZN g RBRbbHTPiB4ogjrrv1gfbxjlG iKyKEHzICn2FLg8YSRvzJiuRg WjQJX9DsD9MYZ7pSElxS9apGd n ecwzoX4xWyy+EMR0gEJfzNIDJ R9xGskqaSG+TCTmACK5sZgyNY ijYEOyyQ5iVBJwX1u9LfMgPgH 1 UPyfD4MlimG7JDFeqWEuRYQro ACYyG0mdbgmo3eqzjhxIyAgDR TzEMf1MIn7EFUcgJwbZpUwHYX 0 AcC4LGK5nZJudL0urYfmuljsj G9wOyc+KavdlNwoNAS3NZy2E7 XaZnz8FYJvnNwlCB7skJFdLKh u Up4edZkblZiaRN0vNWNifptlo 767RwRsg7fhADTmuTGsDShcUA H3T15iv8Y4OZZrQTEtTXG1hRQ 4 zD3ayNprbnnlvCVfiTegamLcs BekNOomORapI091KAFhsFfaBd LaGSp5V2LkTpp0EPOkhSuuEK9 n vZXaQKyyCx6vhQcutHswAO6lD NNgcrats259JdTwt3xwJWHhwD MrBQzoWZA1P17je7O1SFQcJME w ORD2hKJ6mG5wiLebeesufBVag SpurrLguTxkABqiAYvzR267OJ RqcIuaYwWekIi5W9ZrBxf2EAR z xSfsHB5qgKRfWJmuSh5ygNqrj JglEJ6eJYFkaberz434MmBuf0 ktFFQvoHOlQUqeZVT6J63dj7N 6 KEFlEZLbIFO0jGX5hW7dzOqgl jogbGVmdDsgdmVydGljYWwtYW atS336FNAaeTlzKvBzqMdsvwY g JRxoFSo3O9GbQynmmYO+PC90Y FIuJK70wRCpkJHry2yrqAe2Rj CdYQMaFAP2sRpuAUaue0EiKXO t D29ymANsy6P9TXQhlYpfiDYcP cYmwIA1oX4cZCcznvoen4aylc kjZfrqu2fuhg50hH21G42jCGx p AAMpUURyTMWrCSYcvAbzim8ke G9wIi8+KAGfzMB7uZH9qA8wJR UgGcJ2ZGfcQ954PlNwsJSoPpc j s8lub7jrgBd3VtL6HHKwniMvd CsfZOQ7x8YjZz94N52aJKtxBR ZyMGCjREQdIFYwcEnsdd5erZ3 w Ii8+GZWxnUO2qAD5qM0aPtZkM uE9AFlkI085VcFtwHIhAsftC3 9nD2UscTM+UHJlPgr0TYUwfDd s CC0pdPDaPJlpBq9sVDR9LeEgE dZfGNwsV2EjTTOhtclxmiuwkK M0WJCxLIYvwZ63Ix5lfFboYUC w tHQVsH3ufovgj7radpilZzCcU LPnFPd6JHt8KEItiPibKpReFP O8InA0YSA1mMCxxZ5dqLuesdq g tV8pS4SrLQJnkqnuKj99gK3vD qLsLoQ4JIaoVhl+LW3UFDEBJG GMACEZXBHCEJYZWW8MMI96X9J k Hsn2JYPrbRkoKN6nvAMfKEslS z3xqWzudLyaYE1vDLUchmifTJ EzsE1pDINxfYXujDpzCV6eDIC p xyrha151CzEgYEN7DZOsiKBgI 0GxiR2uTxHqTCNbVTSeO7NrzO RoYHhqJ331EHlmEmY7BXIjghW p I7IwCLAicGzzYgC0q7H9Xh1bA U3wLM6tXHHsHA69MD96cNUjc1 W0aWJ5Z2RvSBJyamgystrlwEX 6 ILSeOENsfM87sMYxJKreKk6dr 7J2f551EEAaZCZejA17Aa5baY jgMHHueWLJtL4mhfoof6uwmnc g YaNrFREsFHw4COg0ETVnqUpfH fThSFT7RjN5CYH2qCOnsB1qlO soamlfxW6zNyt+NjQgWWVhcnM 8 I6ZjJsv6QYDniYnpOE5lrBLcR UihOz8jfYgmbBieFL5qYESvgs hmCGDkbN6yOUWjcNZmeEtkHR2 w SANmvknpe681UiZtMCK8NAQby CNrP1SucB0tXeMsNGUlSESnO3 PahZHiEMcgE726CMwgEuV5RVW l tlVeT0XwKFXbrZycJjI4d3D4N v0AWM9GZYG2X7HrHnq0FYMquI gyTH3xeZUkSIalYr0ifZxblRz g SS6aNQEyinyoXKUetQ2pYEWhx UBpsXvaIP8fWWHiiqlek709Pu XaOON1DNZtjNDqE3UcoH5bGkQ j HJVmFPIrV2OijIVoQPaxJ184F CjzYpO7TJHpzxRdU7KiXLKmaW oqLvP6d3B5Wf9LORowY8TnU4Y y eTwvdGQ+PK62fi70X5HbUhpwL ci9YXIpQBF4jPH5pC3bVPQiRG qsv6F5qFK7I2AzpvGlam4zp3g s WJAbJIbyG94juFHvq0Y4WIWmx BS1WMYfwSdqTlHzmH47Nuy+PG HdyNrch4DgEzumz3mgu6djdEs 9 VePcKSHsuuDohTydQAL1i1XuQ n00T59tZXobIXZyYAOdGDOgYE GgjAsbwn5grU0iSn5+PGNvbCB 3 ySU7uL5pMeMbKzO3VEybG542D pMsmIZfZyurf8pua9saxXx0Du QhYUIkmcMotYkoKLD5t8XrEx0 8 A6LlkXuaz6LgBcj5xf26oFVau 1E4qPK9F6JiQYSqhqjyvQZhxP ukNP1cEXMmyexgPOMnaS9zLDW p Q1p5TlRtMiD5AJjjG6OpslN6L TChcWLhZFJjoJBGlV8gqoxkc9 rpyoztFeKdEJNbJLi2IQe0BKN s oYwwAfFkKNY3KtO4PVP2jUZwl W1zlOinfrrbiN8cOqv+UGh5c2 qqlHAwHX0zyTU3FB34QG18dUK g u4Q3zAE3K4YsNKAjsvwbegunk YB9BAHmHUBdpZ52Vq4jdGwcCf 0hAAEnKTV4PWYjmXPsO5JawW2 y AxOiUAQzGQOiR6GclKFdUGsyR 358WSacQeV9JZHbskKlM2KbOU QgdUzpPsV2m0U0Ju8LIP54GR1 0 TQ25dZAwp9P8hAQ8R8MjTVLvj vbejjywzBE0UXIvGCPulZ71Ku 8bnFmlMx5kZWYbESN0ARCuiEZ z I5VogS0sJvUxMLKdJVGiX1Klg SFzONbpN677EEoyMmJ6JKBjip RaK2ZbEBDbmZbdMpJ8m2E2Eh3 N Nx46IV40GD05mNDbo7V0xZB3H 1JxFRAyyegmsmxetRP7TFQzYL HrfL89Fy1fxGcwFb7vQXWlWAK 0 WSPoxUGrV1GgmN2uJqGvPCLgT ALjN6ArhBFtZWbeA864ONrqIz F3WJDjcxGuY0AjHSHbdWsxKqZ 0 d5E4Dw2ZIAvwgnq7P0ZlJdfvv HI+JW48MGVbFQ52fNHadVVcr2 jrvGi8DbPsSKVuZAH1xRgbRZj i b3J (more content not included)... [facility] Consent Formson 06-20-2024 Consent Forms [id number]#[id number] [facility] Consultation/Specialist Note on 06-20-2024 Consultation/Spec ialist Note [id number]#[id number] [facility] Outside Recordson 06-20-2024 Outside Records [id number]#1.00OTGTIF F [facility] Telemetry Stripson Telemetry Strips [id number]#[id number] F [facility] Anesthesia Noteon 06-17-2024 Anesthesia Note Patient: LESLI CLAY Age: 64 years Sex: FEMALE : 1960 Associated Diagnoses: None Author: Farooq Boggs MD Postoperative Information Post Operative Note: Operative Day. Anesthetic utilized: General. Health Status Allergies: Allergic Reactions (All) No known allergies Problem list: All Problems Hypertension / SNOMED CT 2782929407 / Confirmed Occasional tremors / SNOMED CT 13138324 / Confirmed Type 2 diabetes mellitus / SNOMED CT 675912091 / Confirmed Physical Examination Vital Signs (last [...] on: 06/17/2024 14:58 EDT] Farooq Boggs MD [facility] Anesthesia Note Patient: LESLI CLAY Age: 64 years Sex: FEMALE : 1960 Associated Diagnoses: None Author: Farooq Boggs MD Preoperative Information Anesthesia history: Patient history: pt had breathing issues post op after back surgery in [place]. Family was unaware for several hours, but [...] (2 mg dose) subcutaneous solution , Subcutaneous, qSaturday pregabalin 100 mg oral capsule 100 mg = 1 cap(s), Oral, TID tiZANidine 4 mg oral capsule 4 mg = 1 cap(s), Oral, HS Tresiba 100 units/mL subcutaneous solution 44 unit(s), Subcutaneous, Daily Problem list: All Problems Hypertension / SNOMED CT 8574130762 / Confirmed Occasional tremors / SNOMED CT 35084272 / Confirmed Type 2 diabetes mellitus / SNOMED CT 912583180 / Confirmed Histories Family History: No family history items have been selected or recorded. Procedure history: Arthroscopy of shoulder ([id number]) on 06/17/2024 at 64 Years. Comments: 06/17/2024 13:21 Marylin Seymour RN Right Neck ([id number]). Comments: 06/01/2024 12:04 Diane Mcgowan RN neck surgery Complete repair of rotator cuff ([id number]). Comments: 06/01/2024 12:04 Diane Mcgowan RN bilateral shoulders Triggering of finger ([id number]). Comments: 06/01/2024 12:05 Diane Mcgowan RN bilateral hands Back ([id number]). Comments: 06/01/2024 12:03 Diane Mcgowan RN back surgery Arthroplasty of knee ([id number]). Comments: 06/01/2024 12:05 Diane Mcgowan RN bilateral knees section ([id number]). Cardiac catheterization ([id number]). H/O: hysterectomy ([id number]). Social History Electronic Cigarette/Vaping Assessment Electronic Cigarette [...] Oriented. Review / Management Laboratory Results Plan [place] [employer] (ASA) physical status classification: [...] on: 06/17/2024 13:40 EDT] Farooq Boggs MD Normal [facility] Inpatient Patient Summaryon 06-17-2024 Inpatient [place] [address] Patient Discharge Instructions Name: CIELOJHONYLESLI : 1960 Patient Address: [address] [place] [address] Primary Care Provider: Name: JENNIFER CABRERA After you are discharged if you find you have any questions, please, call [phone] ext [phone] to speak to a nurse. Discharge Diagnosis: [...] alcohol and/or drug addiction problems; contact the [facility] 08/09 Crisis Hotline -Text 4HMXA to 691299. If you received any narcotics, sedation, or [...] business decisions or sign any legal documents [facility] would like to thank you for allowing us to assist you with your healthcare needs. The following includes patient education materials and information regarding your injury/illness. LESLI CLAY has been given the following list of follow-up instructions, prescriptions, and patient education materials: Follow-up Instructions With: Address: When: Lauren Torres [address] [place] [address] [facility] (1) 07/01/2024 10:00 AM Medications During [...] 1 c (more content not included)... Normal [facility] MAGR Intraoperative Recordon 06-17-2024 MAGR Intraoperative Record MAGR Intra-Op Record Summary Primary Physician: RICA RODRIGUEZ DO Finalized Date/Time: 06/17/24 14:39:23 Pt. Name: CHRIS CLAYJAQUI Huffman/Sex: 1960 FEMALE Med Rec #: [id number] Physician: RICA RODRIGUEZ DO Financial #: [id number] Pt. Type: D Room/Bed: / Admit/Disch: 06/17/24 [...] Role Performed Surgeon - Primary Anesthesiologist of Joiners Supervisor Record Time In 06/17/24 13:02:00 06/17/24 13:02:00 [...] CSFA CST CST Role Performed Scrub Personnel Crusher Foreman Scrub Personnel Time In 06/17/24 13:02:00 06/17/24 13:02:00 06/17/24 13:02:00 Time Out 06/17/24 14:34:00 06/17/24 14:34:00 06/17/24 14:34:00 Procedure Arthroscopy Arthroscopy Arthroscopy Shoulder(Right) Shoulder(Right) Shoulder(Right) Last Modified By: Mary Alice Botello RN, Diane RN Kokinda, Diane RN 06/17/24 14:35:27 06/17/24 14:35:27 06/17/24 14:35:27 General Comments: MANOJ LEI-ARTHREX REP Surgical Procedures MAGR Pre-Care Text: A.20 [...] Concerns n/a Addressed Time Out Yamilet Rodriguez WASTE MINIMIZATION TECHNICIAN, Time Out Time 06/17/24 13:37:00 Participants Mary Alice Botello RN, Farooq Boggs MD, Kaya Ty WASTE MINIMIZATION TECHNICIAN, RICA RODRIGUEZ DO, Tuyet Carrasquillo CSFDes WASTE MINIMIZATION TECHNICIAN Last Modified By: Mary Alice Botello RN [...] Yes Positioning De (more content not included)... [facility] MAGR Intraoperative Record MAGR Intra-Op Record Summary Primary Physician: Finalized Date/Time: 06/17/24 13:02:44 Pt. Name: PHILLYLESLI/Sex: 1960 FEMALE Med Rec #: [id number] Physician: RICA RODRIGUEZ DO Financial #: [id number] Pt. Type: D Room/Bed: / Admit/Disch: 06/17/24 [...] Draper, Lora RN Role Performed Anesthesiologist of Joiners Supervisor Joiners Supervisor Record Time In 06/17/24 12:35:00 06/17/24 12:34:00 [...] Agents (Im.270) Chlorhexidine Gluconate Prep By Farooq oBggs MD and Alcohol Prep Area (Im.270) Shoulder, Neck Prep Area Details Right Skin Prep Agent Dry Yes Without Pooling Hair Removal Syntegrity Hair Removal Methods No hair removal performed (more content not included)... [facility] Record [facility] sophia Primary Physician: RICA RODRIGUEZ DO Finalized Date/Time: 06/17/24 15:24:17 Pt. Name: LESLI CLAY/Sex: 1960 FEMALE Med Rec #: [id number] Physician: RICA RODRIGUEZ DO Financial #: [id number] Pt. Type: D Room/Bed: / Admit/Disch: 06/17/24 10:32:36 - Institution: PACU Case Times MAGR Entry 1 In PACU I 06/17/24 14:35:00 Discharge from PACU 06/17/24 15:24:00 I Last Modified By: Marylin Heredia RN 06/17/24 15:24:03 Finalized By: Marylin Heredia RN Document Signatures Signed By: Marylin Heredia RN 06/17/24 15:24 [facility] MAGR Postoperative Recordon 06-17-2024 MAGR Postoperative Record MAGR Phase II Record Summary Primary Physician: RICA RODRIGUEZ DO Finalized Date/Time: 06/17/24 16:57:02 Pt. Name: UBALDOMelvinaLESLI/Sex: 1960 FEMALE Med Rec #: [id number] Physician: RICA RODRIGUEZ DO Financial #: [id number] Pt. Type: D Room/Bed: / Admit/Disch: 06/17/24 [...] Signed By: Marylin Heredia RN 06/17/24 16:57 [facility] MAGR Preoperative Recordon 0 06-17-2024 MAGR Preoperative Record MAGR Pre-Op Record Summary Primary Physician: RICA RODRIGUEZ DO Finalized Date/Time: 06/17/24 13:03:22 Pt. Name: CHRIS CLAYJAQUI Huffman/Sex: 1960 FEMALE Med Rec #: [id number] Physician: RICA RODRIGUEZ DO Financial #: [id number] Pt. Type: D Room/Bed: / Admit/Disch: 06/17/24 [...] Signed By: Marylin Heredia RN 06/17/24 13:03 Normal [facility] POCT Glucose Levelon 025 Glucose [Mass/Vol] 156 mg/dL High [address] [place] [address] Comment on above: Result Comment: OPR_ ID=IN_LIST,TGC FLAG = False,Meter:[id number] Vehicle Washer:Bailey Houser Performed By: #### [id number] ####[facility] (DEFAULT)[address] [place] [id number] Glucose [Mass/Vol] 170 mg/dL High [address] [place] [address] Comment on above: Result Comment: OPR_ ID=IN_LIST,TGC FLAG = False,Meter:[id number] Vehicle Washer:2004 Dianne Houser Performed By: #### 4 [id number] ####[facility] (DEFAULT)[address] [place] [address] Patient Handouton 06-17-2024 Patient Handout Outpatient Shoulder [...] or fever, please call Dr. Rodriguez at [phone]. 6.) Keep dressings in place, clean and [...] or concerns, please call the office at [phone] or [phone] [facility] Progress Note - Nurseon 05-0 Progress Note - Nurse pre-op call made to pt. pt states understanding of arrival time of 1030 on 06/17/24 and NPO after MN. [Electronically Signed on: 06/16/2024 09:12 EDT] Rowena Uribe RN [Verified on: 06/16/2024 09:12 EDT] Rowena Uribe RN [facility] Progress Note - Nurseon 05-19 Progress Note - Nurse Dr Wren reviews pt chart and clearance from PCP. Dr Wren states that pt will have to have acceptable BP DOS to proceed with surgery. [Electronically Signed on: 06/15/2024 12:46 EDT] Diane Smith RN [Verified on: 06/15/2024 12:46 EDT] Diane Smith RN [facility] Coding Summaryon 06-07-2024 Coding Summary HTMLBase 64 YbgacffaBSy1rOt+PGhlYWQ+P P0VYSCmZ19gdWXhzY3gY0FZUN lOSywgQVBQTElOSyIgbmFtZT1 kaXNjZXJu IC8+KH0nEOYxCfjroMBgi7K4y SI9B60esb0lQDfknLK9HXFlFc Twpgell0iqaPf3HUpyDpgcNkN t ARIedW16QFZ9vZ91Im81kHPjn OOyy3pkpKo0YkFfSKHjASQ8rU hyOOvft3QwXXUjS79fhKJjp9M 6 HOAqjOdqbOXwIlVlxSP2yU5pX Xwceqyxg8zyqreeNss8cm64xL Qho2B6lHE2Z4ZgzpA0KRZbcIE g AhsbiVSNjI2jsmrih8zjzbdzP kWyAUCnNOg8AIj0LACshLlbIz RqBL86CTH5EAKqnyZhS6RvWPT s dGuzUyU1x0C8Bn6AC7VMGskxO 1VNTUFSWTwvdGQ+ZN54cf37M7 JlSfvfHou8SLRbSKJ1mKV6oN9 n BZEaHZjfd3D5cFI4A8EnxaDdn x3uc5nyQKMdPEiaL96nyOXpz2 Q1VCJknCV4FAGsqVtqCqFegM5 3 Oyc+LUOlsWsdk0QwOmknm9mis 9ueeYc4NujyKUBjkzOrbQcqPV U7w2RqPx1dMZTptUE5hFB4dX7 i VfQeIgP4OXzsP865HhAhtTElP iffN98mE0PoyWK+QDIlYmj6WH YneEkuLJ6cZ3GhXKQiaypbjXT m qLshZC9cGCYjujnxQHOqhU9dJ HReL6m6OgRgMnY6GGzaK8CbUD NfdnyaTq50pE9cAcZlVzY9OXx u L0DbzmG3SBKopYVgSDweTDU2G 00tj5Y8KPZaYNUvHMO8lVC3oA 1hbGlnbjogbGVmdDsgdmVydGl j FVxsEBzaA179OZIxtMztFyFmV GluZyBEYXRlOiAgMDQvMjIvMj AyNTwvdGQ+SKXeOEF5lZzbHEG n uXIfONpyTl3hrTcwoWndBS6zS BMretkbPJJatX8mAYVihZNndS swMY5kFLKcwftvy267SdYcNFA 0 EYQzrGLuS4AzeG2uSgGbHIUsJ HUnW6QmfPDlYSdfH771WJlhTq E3INWdirJlG7YrZGQfjGfjNiY 0 o7O7Gi7Wo0JaedcnT2DbjBThE hYeCgrgSIe6H7FwOblmgLT+PC 94CXXvOP70VHk0BNV7xNkeBBn i KPKnC7QddB2jVdSkXPKiANZvV yc+PHRhYmxlIHdpZHRoPScxMD PxGhJcvLkaWN9lDs9kAIOeSZM v mIfjnCMmCbNzu7cbGZRmNPdeI S0cgHmqW8OkqLW0AEChd3e2Pk 37H95eY9KjyNG+NBSlhCY6ePA 0 aY4xTrOuJvY4IDlyR808OkTqa YPwIqigy8bpl7aqbLd8ShT7FV PhhrQrtShaYWA4r3PyJz22F99 s IHdpZHRoPSIxNSUiIHZhbGlnb g9ynX7jEv5+HQZqgVX9oRC3wD 9tWtYfHzA5MYzvE445HdMshDO v Bybnp4xpk5cthEt2CjVxLXUyp zGwzFsoSUM7u5EiPk42K0RmuO zyr2OaMtq1da35hWHba1V5uXD 9 D3JcZHXmlhiadXZacMaxLT0wW NKpquksXLGkvS8kDFQoD8q4Si DhXlI6VSpfC6GbfqG7UETcpBQ g FCJbrTHKyW6mpcxxe1dxifexA nUuYLOiCZl4BOh3PXFjjWbjTh NdKUW0CuA1GFY8qZPwtL4sxYj n fsaorH2pHuy+RKF4aCQuqVNKF Q0hFtyldWN+GUNzPZO2pEjfTK lfSTFsyS8vTGOhM0q3UhXcDaN 1 JRklS2WchvZ4YLBsnPUaELUwg EKWfL2yrlbgh7zdmptrCvPtGP ClLWa8TDe6PSXlgGotXvBiVOQ 0 VrM8WPW6jYRfpO0oxEisliqjl G9wOyc+AhpybQcwVPJ2DNd3A8 NfGtp3GYEriSbhEQ2pbTHbXGr u Xc4fdUazxFqrMZ4aXZVuzrlfk 278KjZmh5mdJDFuhQKsOTcuUM Z7M75zy8G5EDYgJLKmEPH8zXW 4 sU1qcMxqcndbzWOsqRfvquExa DalMTdyOBhpU057AFRspCerLf NsQTz4I1DzFtb4TEKnxVujIQ3 n yRInYNtiSi3mkZeuzNmzSS6hO BPypapwp277DiUet1vbCBDczX CeNUcqZFP1U91yp9M6CFZwOHY w MZN9fTB8pL4lcFiymfcopDQey OimkfOdjFvqLFilMOrzK587SR UeyJmlHhXngIc3U4NxBrd5KYF z aGlvXL8evTEyDWjxOz9ibRhhv UsjHD7wNMCszgozm856JdJtu4 vlOBGuuYNwBVfiCFD2Y43sb9F 6 MBUxWYKhOKT2sUJ6qB2bhFehc jogbGVmdDsgdmVydGljYWwtYW iiF805SRDzkMubSgQnuYxuxcE g EPyzTUi3P1NgTwkrdIN+PC90Y MWpCH06fKYpjAXzh9stuVz8Sj DzSIWkMWQ7qSjmHUkbv8DyZSP t Q72isFTlc2R4NJMszEvvwIFzC pKrgXQ8nS6hYYfhawoge5huse muIozjq9zvwj55lJ38T93aUBj p PSIuKVTfNMVoJRCfoHybwl0yi G9wIi8+FWBwzFO6rIQ9pI2gLE QmRlA4CEaaQ564EkTxlECwYyq j d8mis7kksAg7IkQ2FWMqskMqn KcsJGY4i9SpXv98D48yIWnlHQ XaAEHmVSMvYXGaaFcohu2znE9 w Ii8+NAJjbMN7xMR7zR0cVyJzC dB7BSloY848DbIqgZInHbyuN0 0fK7XqpPO+DKXgWmw2GNQclSm s GO7cpAUdOBsaLk4bLFM6AnMcT tZtGEneY1KaJPPonrdvvpdrzR C5OOFsURHipQ44Uf3naEtaWZF w kMUJaO3hluzkd2abjtymZoIxX IRoOUa4WGr6IYNbdTomZkGzOY P3VrP0IBV1eLWgcS4krEnnume g jQ0yA1MgBXMufwieTt95dC9jT oGiKdZ3MVskKou+RU5VKJHCPC RUTFLFNMBHMUXLEU7OKT23M7T k Rii4HVMegRvhLM7qpOFkRQppF r2yjWoxwBnjZJ2vFOTezglcMT TzfE6sUKDxrQIkrIzpFU4pKBK p jnxps279VeSmQGB5LJYmmVRsR 0WkbD1yAxIuCZAsLCWmO6TnwC TzBOfmM940LBpaGkP6KAVrgvI p W5IdUHNodDrxIhS6z3S3Qu9gU C2pZR5bUZHwIJ23FT12vLVym0 I2eAF0F4AwSHXwvzairlimcSI 6 RGTmYYCkfG00aFLyCDyyEd4of 3P9a736HZEpITRffD75Va2hcK bfJIEglPENkO5xpvoni0bdduv g SpLjCVDoTKr8XKr4KQGfxDxhU yMvLTC1IfK1MTO4tYPtbF9thB ucvtrugY0iXgf+NjQgWWVhcnM 8 G7JmGmp4TRBjlTanNE8csQYvR WxvFw2ljAimuJspFR5jPSXbxl muSXCbyE5iPUYonBFukGjnMY1 w OTDxxphqu268OrHqZJA0NHYrk AQfN7QzwU0yWxOmVNAeBTDfH5 KvmDXyODzrJ526MOqbVhB7MIB l dzPuF4NwIRQgfPsnFoK7g5T4G m2ZEB6IODF2B1TzLzf6LBOwcU sbBG9fhAMuHIguCc1ssAkzaSr g HT4lAIOeoxojWGPptD9eETDdf HLdmUnwCJ5sBBTegoymp435Ja GsKHY5UJJmfPIhZ6XzxI7iPlI j FIOmGJHxO0MdfXGpMDboS124V IdfChM2UUTechNwL3HxHPLjdB qgHsB3j4Q6Aa6NMZyftNE+PC9 0 aw18X6FzVsowQjx3EHKtKTI1t RG1uF5lJOHlRGurf4G3dWA0N5 BxfyUbqp7in2dsMDZyJEvjD36 s cXVpb4F0KQOmkMA9WHRweZcyN cBeeR92Xiu+BESouHnqf9LqHc lvu5tpn3axbMb8ZtYqOMRsjeF s jWolTJJ9f3GaQx23I25sSWqeU TCpNMWdNZGmNDHykArqvr5cnC 9wIi8+WNUudER1sWA4bE4xXjF l ImR0VNuyC786VpQzmTNoCnjtg 0xgn5jlpVg4NbAeIYUcccDviD asOPZ2f2IeZr40I4GqwWizg4Z w Fbg4lj87rLMxe4R8wLF5D7EeX PSyfrcnmNAxmNikLI9eVSPbfk neBKGbbW3sQRGaW6a2KkVjJaV 1 URzeX5QbwuD0IXDhbPRqSCRck YJXjL3tgcspk3hqxbctCxQjXH JmSQa3JZt2YQLszEbrDwRdQJN 0 XnZ3BJI0xKNmmD4opDpfgywwe G9wOyc+XZz5m7vsqKTfKS8ziI D6UN77ND90lWIic4B6yEA3G6C h EQQuzokcizlulYP9GVTcSKCks X15Am8sfAvtRz3zNKIeSJM3YE CdfWUmI0CleN0bRcJtHSGpZPR w U1AwoNUpAMwoE596IMbhBhZ7J BXmjcYuL2UgXOKqnWrgVeG9b1 H7Av3SYJ22NI35KB29wETsh1Y 5 tFX3H4HiOZIsjswyqxtxzQF5W SQsIRWbmI79Oh2kbQgeTx2zOW CoOOT7ZHRgeYScT5MfbQ3kYkT j DBHvWOTqA0RdzTPxLFexC147E IieWrY6UBPwmfCjJ8NrWAIapP jvUuP8t6P2Rm6OIw22TQ29FT5 8 zTQrk4Y1lEE5T9JwRNIxbbzcy vlwxXE0JBLdQUTumN03Aq2doY oxUq0oDXMiBMS5ZWLxnUVuM4E v aM7iNyDlQLVhMDNqM5BdsZIxQ BblN304UKtsJiN1RPSxbiMhP1 SgHVLmxPcdOtW8u0R1Ze0YYEp l see5T6EnSbqieOV+RZ05XEWwD R51aLMjqJUpi4zbzYc5ZuQjIE OcWVM8wIamODwdg2NjZTYwE69 s bGF (more content not included)... [facility] Progress Note - Nursewilmer 04- Progress Note - Nurse Dr Galo reviews pt chart and wants medical clearamce d/t elevated BP on PAT visit. [Electronically Signed on: 06/02/2024 13:58 EDT] Diane Smith RN [Verified on: 06/02/2024 13:58 EDT] Diane Smith RN Spoke with Nicole at Dr Contreras office and informed her of the need for medical clearance. [Electronically Signed on: 06/02/2024 13:59 EDT] Diane Smith RN Normal [facility] .Auto Diff 1on 06-01-2024 Auto [place] % 8 % Normal 1-12 [facility] Comment on above: Performed By: #### 7 [id number], [id number], [id number] ####[facility] (DEFAULT)[address] [place] [address] 00987 Baso Abs# 0.1 x10 Normal 0.0-0.2 [facility] Comment on above: Performed By: #### 7 [id number], [id number], [id number] ####[facility] (DEFAULT)[address] [place] [address] 09706 Basophils/100 WBC (Bld) 0.9 % Normal 0.2-2.0 [facility] Comment on above: Performed By: #### 7 [id number], [id number], [id number] ####[facility] (DEFAULT)[address] [place] [address] 48909 Eos Abs# 0.2 x10 Normal 0.0-0.4 [facility] Comment on above: Performed By: #### 7 [id number], [id number], [id number] ####[facility] (DEFAULT)[address] [place] [address] 72407 Eosinophils/100 WBC (Bld) 2.2 % Normal 0.9-4.0 [facility] Comment on above: Performed By: #### 7 [id number], [id number], [id number] ####[facility] (DEFAULT)[address] [place] [address] 80543 Lymph Abs# 1.9 x10 Normal 1.3-2.9 [facility] Comment on above: Performed By: #### 7 133116, [id number], [id number] ####[facility] (DEFAULT)[address] [place] [address] 61135 Lymphocytes/100 WBC (Bld) 19 % Normal 14-48 [facility] Comment on above: Performed By: #### 7 [id number], [id number], [id number] ####[facility] (DEFAULT)[address] [place] [address] 61557 [place] Abs# 0.8 x10 Normal 0.0-0.8 [facility] Comment on above: Performed By: #### 7 [id number], [id number], [id number] ####[facility] (DEFAULT)[address] [place] [address] 96479 Neut Abs# 7.4 x10 Normal 1.5-9.2 [facility] Comment on above: Performed By: #### 7 [id number], [id number], [id number] ####[facility] (DEFAULT)[address] [place] [address] 10979 Neutrophils/100 WBC (Bld) 71 % Normal 44-88 [facility] Comment on above: Performed By: #### 7 [id number], [id number], [id number] ####[facility] (DEFAULT)[address] [place] [address]26[facility] Standardon 06-01-2024 eGFR Non AA >60 Invalid Interpretation Code [facility] Comment on above: Performed By: #### 7 [id number], [id number], [id number] ####[facility] (DEFAULT)[address] [place] [address] 20915 eGFR AA >60 Invalid Interpretation Code [facility] Comment on above: Performed By: #### 7 497102, [id number], [id number] ####[facility] (DEFAULT)[address] [place] [address] 15756 Calcium [Mass/Vol] 9.3 mg/dL Normal 8.9-10.3 [facility] Comment on above: Performed By: #### 7 082445, [id number], [id number] ####[facility] (DEFAULT)[address] [place] [address] 48426 Chloride [Moles/Vol] 99 mmol/L Low 101-111 [facility] Comment on above: Performed By: #### 7 150444, [id number], [id number] ####[facility] (DEFAULT)[address] [place] [address] 08892 CO2 [Moles/Vol] 28 mmol/L Normal 21-32 [facility] Comment on above: Performed By: #### 7 748883, [id number], [id number] ####[facility] (DEFAULT)[address] [place] [address] 28505 Creatinine [Mass/Vol] 0.72 mg/dL Normal 0.60-1.30 [facility] Comment on above: Performed By: #### 7 160978, [id number], [id number] ####[facility] (DEFAULT)[address] [place] [address] 63052 Glucose [Mass/Vol] 89.0 mg/dL Normal 74.0-118.0 [facility] Comment on above: Performed By: #### 7 762339, [id number], [id number] ####[facility] (DEFAULT)[address] [place] [address] 51410 Potassium [Moles/Vol] 4.6 mmol/L Normal 3.6-5.1 [facility] Comment on above: Performed By: #### 7 368361, [id number], [id number] ####[facility] (DEFAULT)[address] [place] [address] 11159 Sodium [Moles/Vol] 135.0 mmol/L Low 136.0-144.0 [facility] Comment on above: Performed By: #### 7 158575, [id number], [id number] ####[facility] (DEFAULT)[address] [place] [address] 15730 Urea nitrogen [Mass/Vol] 17 mg/dL Normal 8-26 [facility] Comment on above: Performed By: #### 7 370034, [id number], [id number] ####[facility] (DEFAULT)[address] [place] [address] 84566 Anion gap [Moles/Vol] 12.6 mmol/L Normal 5.0-19.0 [facility] Comment on above: Performed By: #### 7 977197, [id number], [id number] ####[facility] (DEFAULT)[address] [place] [address] Osmolality 271 mOsm/L Invalid Interpretation Code [facility] Comment on above: Performed By: #### 7 905833, [id number], [id number] ####[facility] (DEFAULT)[address] [place] [address] Urea nitrogen/Creatini ne [Mass ratio] 23.6 mg/mg High 4.6-16.2 [facility] Comment on above: Performed By: #### 7 034326, [id number], [id number] ####[facility] (DEFAULT)[address] [place] [address] CBC w/ Auto Diffon 5 Erythrocyte distribution width (RBC) [Ratio] 17.2 % High 11.5-15.0 [facility] Comment on above: Performed By: #### 7 812446, [id number], [id number] ####[facility] (DEFAULT)[address] [place] [address] Hematocrit (Bld) [Volume fraction] 36.4 % Normal 33.7-40.4 [facility] Comment on above: Performed By: #### 7 902924, [id number], [id number] ####[facility] (DEFAULT)[address] [place] [address] Hemoglobin (Bld) [Mass/Vol] 11.9 g/dL Normal 11.3-15.9 [facility] Comment on above: Performed By: #### 7 220284, [id number], [id number] ####[facility] (DEFAULT)[address] [place] [address] Man Diff? Auto Invalid Interpretation Code [facility] Comment on above: Performed By: #### 7 649757, [id number], [id number] ####[facility] (DEFAULT)[address] [place] [address] MCH (RBC) [Entitic mass] 28 pg Normal 24-34 [facility] Comment on above: Performed By: #### 7 788989, [id number], [id number] ####[facility] (DEFAULT)[address] [place] [address] MCHC (RBC) [Mass/Vol] 33 g/dL Normal 26-37 [facility] Comment on above: Performed By: #### 7 568855, [id number], [id number] ####[facility] (DEFAULT)[address] [place] [address] MCV (RBC) [Entitic vol] 84 fL Normal 81-100 [facility] Comment on above: Performed By: #### 7 449619, [id number], [id number] ####[facility] (DEFAULT)[address] [place] [address] Platelet 298 x10 Normal 138-427 [facility] Comment on above: Performed By: #### 7 247149, [id number], [id number] ####[facility] (DEFAULT)[address] [place] [address] Platelet mean volume (Bld) [Entitic vol] 7.9 fL Normal 6.3-10.2 [facility] Comment on above: Performed By: #### 7 241347, [id number], [id number] ####[facility] (DEFAULT)[address] [place] [address] 93518 RBC 4.31 x10 Normal 3.70-5.30 [facility] Comment on above: Performed By: #### 7 100372, [id number], [id number] ####[facility] (DEFAULT)[address] [place] [address] WBC 10.5 x10 Normal 3.5-10.5 [facility] Comment on above: Result Comment: Slid e Reviewed Performed By: #### 7 514365, [id number], [id number] ####[facility] (DEFAULT)[address] [place] [address] 97557 Creatinine [Mass/volume] in UrineOrdered By: Lili Burgos on 05-25-2024 Creatinine (U) [Mass/Vol] Creatinine [Mass/volume] in Urine [facility] Comment on above: No reference range e stablished MicroAlb Creat Ratio,Uon Albumin DL <= 20 mg/L (U) [Mass/Vol] 10.5 mg/dL High 0.0-1.8 [facility] Comment on above: Performed By: #### U RMACRERAT #### [facility] [address] Creatinine, Urine (Random) 102.00 mg/dL Normal [facility] Comment on above: Result Comment: No r eference range established Performed By: #### U RMACRERAT #### [facility] [address] Microalbumin/Crea tinine Ratio 102.9 mg/g High 0.0-30.0 [facility] Comment on above: Result Comment: 30-3 00 mg/g indicates an increased risk for diabetic nephropathy. Greater than 300 mg/g is consistent with clinical nephropathy. (Am. J. Kidney Disease 1995, 25:107) PERFORMED BY: [place] [address] PATHOLOGIST ALLERGIST CHRISTIANO TORREZ M.D. Performed By: #### U RMACRERAT #### [facility] [address] Microalbumin [Mass/volume] i n UrineOrdered By: Lili Burgos on 05-25-2024 Albumin DL <= 20 mg/L (U) [Mass/Vol] Microalbumin [Mass/volume] in Urine High 0.0-1.8 [facility] Urine microalbumin/creatinin e mass ratioOrdered By: Lili Burgos on 05-25-2024 Albumin/Creatinin e DL <= 20 mg/L (U) [Mass ratio] Urine microalbumin/creatinine mass ratio High 0.0-30.0 [facility] Comment on above: 30-300 mg/g indicate s an increased risk for diabetic nephropathy. Greater than 300 mg/g is consistent with clinical nephropathy. (Am. J. Kidney Disease 1994, 25:107) XR CHEST 2 VIEWSon 5 XR CHEST 2 VIEWS EXAM: XR CHEST [...] Carlos Manuel Armando on 03-10-2024 Study report [facility] Main [place] [address] [place] [address] MRI Report Signed Patient: Lesli Clay R#: [id number] : 1960 Acct:[id number] Age/Sex: 63 / F ADM Date: 5 Loc: MR Room: Type: [facility] Attending Dr: Lauren Torres PA-C Copies to: Luaren Torres PA-C~ Ordering Provider: Lauren Torres PA-C Date of Service: 03/10/24 MR/MR shoulder RT wo con: M24.811 ([id number]) XR/XR pre/post mri xray: M24.811 MRI right [...] Manuel Armando M.D.03/10/2024 10:09 AM Dictation Location: [place] [address] Transcribed By: [facility] 03/10/24 1009 Dictated By: Carlos Manuel Armando DO 03/10/24 0959 Signed By: 03/10/24 1009 [facility] XR pre/post mri xrayon 03-10 XR pre/post mri xray [facility] [place] [address] MRI Report Signed Patient: Lesli Clay MR#: [id number] : 1960 Acct:[id number] Age/Sex: 63 / F ADM Date: 03/10/24 Loc: MR Room: Type: [facility] Attending Dr: Lauren Torres PA-C Copies to: Lauren Torres PA-C Ordering Provider: Lauren Torres PA-C Date of Service: 03/10/24 MR/MR shoulder RT wo con: M24.811 ([id number]) XR/XR pre/post mri xray: M24.811 MRI right [...] Manuel Armando M.D.03/10/2024 10:09 AM Dictation Location: [place] [address] Transcribed By: [facility] 03/10/24 1009 Dictated By: Carlos Manuel Armando DO 03/10/24 0959 Signed By: 03/10/24 1009 Normal [facility] Laboratory - Chemistry and C hemistry - challengeon 03-01-2024 Creatinine (U) [Mass/Vol] 74 mg/dL [facility] No Panel Informationon 03-01 Urine Microalbumin mg/dl 9.3 [facility] Urine Microalbumin/Crea tinine Ratio 126 [facility] No Panel Informationon 12-29 Bedside Glucose 171 [facility] No Panel Informationon 12-28 SERGIO Iglesias 12/29/2023 [...] and draped in the usual sterile fashion. 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 [facility] Radiology Study observation (narrative) [facility] Laboratory - Chemistry and C hemistry - challengeon 12-24-2023 Cobalamin (Vitamin B12) [Mass/Vol] 225 pg/mL [facility] Albumin [Mass/Vol] 3.9 g/dL [facility] ALP [Catalytic activity/Vol] 91 U/L [facility] ALT [Catalytic activity/Vol] 23 U/L [facility] AST [Catalytic activity/Vol] 16 U/L [facility] Bilirubin [Mass/Vol] 0.3 mg/dL [facility] Calcium [Mass/Vol] 9.4 mg/dL [facility] Chloride [Moles/Vol] 98 mmol/L [facility] CO2 [Moles/Vol] 32 mmol/L [facility] Creatinine [Mass/Vol] 0.82 mg/dL [facility] Glucose [Mass/Vol] 166 mg/dL [facility] Potassium [Moles/Vol] 5.0 mmol/L [facility] Protein [Mass/Vol] 6.9 g/dL [facility] Sodium [Moles/Vol] 137 mmol/L [facility] Urea nitrogen [Mass/Vol] 17 mg/dL [facility] Cholesterol [Mass/Vol] 149 mg/dL [facility] Cholesterol in HDL [Mass/Vol] 61 mg/dL [facility] Cholesterol in LDL [Mass/Vol] 69 mg/dL [facility] Cholesterol.total /Cholesterol in HDL [Mass ratio] 2.4 {ratio} [facility] Triglyceride [Mass/Vol] 100 mg/dL [facility] Laboratory - Hematology and Cell countson 12-24-2023 HbA1c (Bld) [Mass fraction] 8.1 % [facility] No Panel Informationon 12-23 25-Hydroxy Vitamin D Total 28 ng/mL [facility] Estimated Average Glucose 186 [facility] Estimated GFR (Non- 80 mL/min [facility] Cult,Urineon 08-06-2023 Cult,Urine Specimen Description .CLEAN CATCH [...] Tobramycin <=1 SUSCEPTIBLE Trimethoprim/Sulfa <=20 SUSCEPTIBLE Susceptible [facility] Comment on above: Performed By: #### U ####[facility] [address] [place], [place] [id number] Lab Director: Hermilo Thapa, [address] [address] Lab Director: Jonel Calvert MD Glucose,Whole Bloodon 2023 Glucose [Mass/Vol] 316 mg/dL High 65-105 [facility] Glucose [Mass/Vol] 225 mg/dL High 65-105 [facility] Glucose [Mass/Vol] 245 mg/dL High 65-105 [facility] Calcium, Ionicon 07-28-2023 Calcium [Moles/Vol] 1.26 mmol/L Normal 1.13-1.33 [facility] Comment on above: Performed By: #### N MILL HOUSE SUPERVISOR #### [facility] [address] [place] [address] Armoring Machine Operator: Hermilo Thapa MD Glucose (POC)on 07-28-2023 Glucose [Mass/Vol] 227 mg/dL High 74-100 [facility] Glucose,Whole Bloodon 2023 Glucose [Mass/Vol] 247 mg/dL High 65-105 [facility] Glucose [Mass/Vol] 252 mg/dL High 65-105 [facility] Glucose [Mass/Vol] 280 mg/dL High 65-105 [facility] Glucose [Mass/Vol] 214 mg/dL High 65-105 [facility] Lactic Acidon 07-28-2023 Lactic Acid,Whole Bl 1.5 mmol/L Normal 0.7-2.1 [facility] Comment on above: Performed By: #### N MILL HOUSE SUPERVISOR #### [facility] [address] [place] [address] Armoring Machine Operator: Hermilo Thapa MD Non-Voice Instructor Cytologyon 4 Case No: [id number] Normal [facility] Comment on above: Performed By: #### N MILL HOUSE SUPERVISOR #### [facility] [address] [place] [address] Armoring Machine Operator: Hermilo Thapa MD Specimen Description .PELVIC WASHINGS Normal [facility] Comment on above: Performed By: #### N MILL HOUSE SUPERVISOR #### [facility] [address] [place], [place] [id number] Armoring Machine Operator: Hermilo Thapa MD Open Heart Panelon 4 Donald Test INFORMATION NOT PROVIDED Normal [facility] Comment on above: Performed By: #### N MILL HOUSE SUPERVISOR #### [address] [address] Armoring Machine Operator: Hermilo Thapa MD Body Temp. 37.0 Normal [facility] Comment on above: Performed By: #### N MILL HOUSE SUPERVISOR #### [address] [address] Armoring Machine Operator: Hermilo Thapa MD Carboxy Hgb 1.8 % Normal 0-5 [facility] Comment on above: Result Comment: Reference Range: Non-Smokers 0-2% Average Smoker 2-4% Heavy Smoker <10% Performed By: #### N MILL HOUSE SUPERVISOR #### [address] [address] Armoring Machine Operator: Hermilo Thapa MD Chloride [Moles/Vol] 108 mmol/L Normal 98-110 [facility] Comment on above: Performed By: #### N MILL HOUSE SUPERVISOR #### [address] [address] Armoring Machine Operator: Hermilo Thapa MD FIO2 40% Normal [facility] Comment on above: Performed By: #### N MILL HOUSE SUPERVISOR #### [address] [address] Armoring Machine Operator: Hermilo Thapa MD Glucose [Mass/Vol] 210 mg/dL High 65-105 [facility] Comment on above: Performed By: #### N MILL HOUSE SUPERVISOR #### [address] [address] Armoring Machine Operator: Hermilo Thapa MD HCO3 (Bld) [Moles/Vol] 20.2 mmol/L Low 22-27 [facility] Comment on above: Performed By: #### N MILL HOUSE SUPERVISOR #### [address] [address] Armoring Machine Operator: Hermilo Thapa MD Hematocrit (Bld) [Volume fraction] 35.7 % Low 36.3-47.1 [facility] Comment on above: Performed By: #### N MILL HOUSE SUPERVISOR #### [address] [address] Armoring Machine Operator: Hermilo Thapa MD Hemoglobin (Bld) [Mass/Vol] 11.6 g/dL Low 11.9-15.1 [facility] Comment on above: Performed By: #### N MILL HOUSE SUPERVISOR #### [address] [address] Armoring Machine Operator: Hermilo Thapa MD Negative Base Excess 4.4 mmol/L High 0.0-2.0 [facility] Comment on above: Performed By: #### N MILL HOUSE SUPERVISOR #### [address] [address] Armoring Machine Operator: Hermilo Thapa MD Oxygen (Bld) [Partial pressure] 106.0 mm[Hg] High 75-95 [facility] Comment on above: Performed By: #### N MILL HOUSE SUPERVISOR #### [address] [address] Armoring Machine Operator: Hermilo Thapa MD Oxygen saturation in Blood 97.1 % Normal 94-100 [facility] Comment on above: Performed By: #### N MILL HOUSE SUPERVISOR #### [address] [address] Armoring Machine Operator: Hermilo Thapa MD pCO2 37.7 mmHg Normal 32-45 [facility] Comment on above: Performed By: #### N MILL HOUSE SUPERVISOR #### [address] [address] Armoring Machine Operator: Hermilo Thapa MD pH (Bld) 7.348 [pH] Low 7.350-7.450 [facility] Comment on above: Performed By: #### N MILL HOUSE SUPERVISOR #### [address] [place] [address] Armoring Machine Operator: Hermilo Thapa MD Potassium [Moles/Vol] 4.5 mmol/L Normal 3.6-5.0 [facility] Comment on above: Performed By: #### N MILL HOUSE SUPERVISOR #### [facility] [address] [place] [address] Armoring Machine Operator: Hermilo Thapa MD Sodium [Moles/Vol] 135 mmol/L Low 136-145 [facility] Comment on above: Performed By: #### N MILL HOUSE SUPERVISOR #### [facility] [address] [place] [address] Armoring Machine Operator: Hermilo Thapa MD Potassium (POC)on 07-28-2023 Potassium [Moles/Vol] 4.8 mmol/L High 3.5-4.5 [facility] Surgical Pathology Reporton 07-28-2023 Surgical Pathology Report (NOTE) Path Number: [id number] -- Diagnosis -- A. CERVIX, UTERUS, BILATERAL [...] tissue reveals mcwilliams-red, spongy and vascularized tissue. Fishing Vessel Deckhand sections are submitted in 18c as follows: 1 anterior cervix 2 posterior cervix 3-4 posterior endomyometrium 5 self pay representative anterior endomyometrium with fat attached at serosa 6 self pay representative anterior fat attached to serosa 7-8 anterior cervix and lower uterine segment, longitudinal section 9-10 posterior cervix and lower uterine segment, longitudinal section 11-14 self pay representative left fallopian tube, ovary and adnexal soft tissue 15-18 self pay representative right fallopian tube, ovary and adnexal soft tissue. B. LESLIJOSE CONNERMelvina, RIGHT PELVIC LYMPH NODES Received in formalin are two yellow-red, lobulated adipose tissue fragments, 3.6 cm and 5.0 cm. Upon palpation and dissection, no lymph node candidates are identified. Totally embedded 4c. C. LESLI CONNERMelvina, LEFT PELVIC LYMPH NODES Received in formalin is a 4.6 cm aggregate of yellow-red, lobulated adipose tissue. Upon palpation and dissection, a 2.1 cm lymph node candidate is identified. The lymph node demonstrates a thin, possible rim of mcwilliams-pink lymphoid tissue and predominantly fatty replaced cut surfaces. The lymph node candidate is totally embedded in 2c (more content not included)... Normal [facility] Surgical Pathology Report (NOTE) Path Number: [id number] INTERPRETATION Pelvic washings: Satisfactory for evaluation. NEGATIVE FOR MALIGNANCY. Hypocellular fluid with few mononuclear inflammatory cells and strips of benign mesothelial cells. Electronically Signed Out John Paul Noble. 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 Gross Description PELVIC WASHING 30 ml. colorless fluid. MICROSCOPIC DESCRIPTION Microscopic examination performed. Non Voice Instructor Thin Prep x 1, Cell Block w/ HANH x 1 Processing Lab: [address] [address] Interpretation performed at [place] [address] NONGYNECOLOGICAL CYTOPATHOLOGY CONSULTATION Patient Name: LESLI CLAY [facility] Rec: [id number] [facility] ANATOMIC PATHOLOGY [address] [place] [phone] Normal [facility] CBC with Diffon 07-16-2023 Abs. Basophil 0.03 k/uL Normal 0.00-0.20 [facility] Comment on above: Performed By: #### C P, LIPR, MG, CDP, TSH, GLYHGB #### [place] [id number] Armoring Machine Operator: Hermilo Thapa MD Abs.Imm.Granulocy te 0.03 k/uL Normal 0.00-0.30 [facility] Comment on above: Performed By: #### C P, LIPR, MG, CDP, TSH, GLYHGB #### [place] [id number] Armoring Machine Operator: Hermilo Thapa MD Abs.Neutrophil (Seg) 6.45 k/uL Normal 1.50-8.10 [facility] Comment on above: Performed By: #### C P, LIPR, MG, CDP, TSH, GLYHGB #### [place] [address] Armoring Machine Operator: Hermilo Thapa MD Basophils/100 WBC (Bld) 0 % Normal 0-2 [facility] Comment on above: Performed By: #### C P, LIPR, MG, CDP, TSH, GLYHGB #### [address] [id number] Armoring Machine Operator: Hermilo Thapa MD Eosinophils (Bld) [#/Vol] 0.15 10*3/uL Normal 0.00-0.44 [facility] Comment on above: Performed By: #### C P, LIPR, MG, CDP, TSH, GLYHGB #### [facility] [employer] [address] [place] [address] Armoring Machine Operator: Hermilo Thapa MD Eosinophils/100 WBC (Bld) 2 % Normal 1-4 [facility] Comment on above: Performed By: #### C P, LIPR, MG, CDP, TSH, GLYHGB #### [place] [address] Armoring Machine Operator: Hermilo Thapa MD Erythrocyte distribution width (RBC) [Ratio] 14.7 % High 11.8-14.4 [facility] Comment on above: Performed By: #### C P, LIPR, MG, CDP, TSH, GLYHGB #### [place] [address] Armoring Machine Operator: Hermilo Thapa MD Hematocrit (Bld) [Volume fraction] 37.3 % Normal 36.3-47.1 [facility] Comment on above: Performed By: #### C P, LIPR, MG, CDP, TSH, GLYHGB #### [place] [address] Armoring Machine Operator: Hermilo Thapa MD Hemoglobin (Bld) [Mass/Vol] 11.7 g/dL Low 11.9-15.1 [facility] Comment on above: Performed By: #### C P, LIPR, MG, CDP, TSH, GLYHGB #### [facility] [employer] [address] [place] [address] Armoring Machine Operator: Hermilo Thapa MD Immature granulocytes/100 WBC (Bld) 0 % Normal 0 [facility] Comment on above: Performed By: #### C P, LIPR, MG, CDP, TSH, GLYHGB #### [address] [phone] Armoring Machine Operator: Hermilo Thapa MD Lymphocytes (Bld) [#/Vol] 2.59 10*3/uL Normal 1.10-3.70 [facility] Comment on above: Performed By: #### C P, LIPR, MG, CDP, TSH, GLYHGB #### [address] [address] Armoring Machine Operator: Hermilo Thapa MD Lymphocytes/100 WBC (Bld) 26 % Normal 24-43 [facility] Comment on above: Performed By: #### C P, LIPR, MG, CDP, TSH, GLYHGB #### [place] [address] Armoring Machine Operator: Hermilo Thapa MD MCH (RBC) [Entitic mass] 27.6 pg Normal 25.2-33.5 [facility] Comment on above: Performed By: #### C P, LIPR, MG, CDP, TSH, GLYHGB #### [place] [address] Armoring Machine Operator: Hermilo Thapa MD MCHC (RBC) [Mass/Vol] 31.4 g/dL Normal 28.4-34.8 [facility] Comment on above: Performed By: #### C P, LIPR, MG, CDP, TSH, GLYHGB #### [address] [address] Armoring Machine Operator: Hermilo Thapa MD MCV (RBC) [Entitic vol] 88.0 fL Normal 82.6-102.9 [facility] Comment on above: Performed By: #### C P, LIPR, MG, CDP, TSH, GLYHGB #### [place] [address] Armoring Machine Operator: Hermilo Thapa MD Monocytes (Bld) [#/Vol] 0.59 10*3/uL Normal 0.10-1.20 [facility] Comment on above: Performed By: #### C P, LIPR, MG, CDP, TSH, GLYHGB #### [address] [address] Armoring Machine Operator: Hermilo Thapa MD Monocytes/100 WBC (Bld) 6 % Normal 3-12 [facility] Comment on above: Performed By: #### C P, LIPR, MG, CDP, TSH, GLYHGB #### [address] [address] Armoring Machine Operator: Hermilo Thapa MD Neutrophil (Seg) 66 % High 36-65 [facility] Comment on above: Performed By: #### C P, LIPR, MG, CDP, TSH, GLYHGB #### [address] [address] Armoring Machine Operator: Hermilo Thapa MD NRBC Automated 0.0 per 100 WBC Normal 0.0 [facility] Comment on above: Performed By: #### C P, LIPR, MG, CDP, TSH, GLYHGB #### [address] [address] Armoring Machine Operator: Hermilo Thapa MD Platelet mean volume (Bld) [Entitic vol] 10.2 fL Normal 8.1-13.5 [facility] Comment on above: Performed By: #### C P, LIPR, MG, CDP, TSH, GLYHGB #### [address] [address] Armoring Machine Operator: Hermilo Thapa MD Platelets (Bld) [#/Vol] 325 10*3/uL Normal 138-453 [facility] Comment on above: Performed By: #### C P, LIPR, MG, CDP, TSH, GLYHGB #### [address] [address] Armoring Machine Operator: Hermilo Thapa MD RBC (Bld) [#/Vol] 4.24 10*6/uL Normal 3.95-5.11 [facility] Comment on above: Performed By: #### C P, LIPR, MG, CDP, TSH, GLYHGB #### [facility] [employer] [address] [place] [address] Armoring Machine Operator: Hermilo Thapa MD RBC morphology finding Nom (Bld) ANISOCYTOSIS PRESENT Normal [facility] Comment on above: Performed By: #### C P, LIPR, MG, CDP, TSH, GLYHGB #### [facility] [employer] [address] [place] [address] Armoring Machine Operator: Hermilo Thapa MD WBC (Bld) [#/Vol] 9.8 10*3/uL Normal 3.5-11.3 [facility] Comment on above: Performed By: #### C P, LIPR, MG, CDP, TSH, GLYHGB #### [facility] [employer] [address] [place] [address] Armoring Machine Operator: Hermilo Thapa MD Comp Metabolic Profon 2023 Albumin [Mass/Vol] 4.4 g/dL Normal 3.5-5.2 [facility] Comment on above: Performed By: #### C P, LIPR, MG, CDP, TSH, GLYHGB #### [facility] [employer] [address] [place] [address] Armoring Machine Operator: Hermilo Thapa MD Albumin/Glob Ratio 1.0 Normal 1.0-2.5 [facility] Comment on above: Performed By: #### C P, LIPR, MG, CDP, TSH, GLYHGB #### [facility] [employer] [address] [place] [address] Armoring Machine Operator: Hermilo Thapa MD Alkaline Phos 103 U/L Normal 35-104 [facility] Comment on above: Performed By: #### C P, LIPR, MG, CDP, TSH, GLYHGB #### [facility] [employer] [address] [place] [address] Armoring Machine Operator: Hermilo Thapa MD ALT [Catalytic activity/Vol] 15 U/L Normal 10-35 [facility] Comment on above: Performed By: #### C P, LIPR, MG, CDP, TSH, GLYHGB #### [address] [address] Armoring Machine Operator: Hermilo Thapa MD Anion gap [Moles/Vol] 13 mmol/L Normal 9-16 [facility] Comment on above: Performed By: #### C P, LIPR, MG, CDP, TSH, GLYHGB #### [address] [address] Armoring Machine Operator: Hermilo Thapa MD AST [Catalytic activity/Vol] 18 U/L Normal 10-35 [facility] Comment on above: Performed By: #### C P, LIPR, MG, CDP, TSH, GLYHGB #### [address] [address] Armoring Machine Operator: Hermilo Thapa MD Bilirubin [Mass/Vol] 0.3 mg/dL Normal 0.00-1.20 [facility] Comment on above: Performed By: #### C P, LIPR, MG, CDP, TSH, GLYHGB #### [address] [address] Armoring Machine Operator: Hermilo Thapa MD Calcium [Mass/Vol] 9.9 mg/dL Normal 8.6-10.4 [facility] Comment on above: Performed By: #### C P, LIPR, MG, CDP, TSH, GLYHGB #### [address] [address] Armoring Machine Operator: Hermilo Thapa MD Chloride [Moles/Vol] 103 mmol/L Normal 98-107 [facility] Comment on above: Performed By: #### C P, LIPR, MG, CDP, TSH, GLYHGB #### [address] [address] Armoring Machine Operator: Hermilo Thapa MD CO2 [Moles/Vol] 23 mmol/L Normal 20-31 [facility] Comment on above: Performed By: #### C P, LIPR, MG, CDP, TSH, GLYHGB #### [address] [address] Armoring Machine Operator: Hermilo Thapa MD Creatinine [Mass/Vol] 1.0 mg/dL High 0.50-0.90 [facility] Comment on above: Performed By: #### C P, LIPR, MG, CDP, TSH, GLYHGB #### [address] [address] Armoring Machine Operator: Hermilo Thapa MD GFR/1.73 sq M.predicted among non-blacks MDRD (S/P/Bld) [Vol rate/Area] 64 mL/min/{1.73_m2} Normal >60 [facility] Comment on above: Result Comment: [...] P, LIPR, MG, CDP, TSH, GLYHGB #### [address] [address] Armoring Machine Operator: Hermilo Thapa MD Glucose [Mass/Vol] 161 mg/dL High 74-99 [facility] Comment on above: Performed By: #### C P, LIPR, MG, CDP, TSH, GLYHGB #### [address] [address] Armoring Machine Operator: Hermilo Thapa MD Potassium [Moles/Vol] 4.7 mmol/L Normal 3.7-5.3 [facility] Comment on above: Performed By: #### C P, LIPR, MG, CDP, TSH, GLYHGB #### [address] [address] Armoring Machine Operator: Hermilo Thapa MD Protein [Mass/Vol] 7.9 g/dL Normal 6.6-8.7 [facility] Comment on above: Performed By: #### C P, LIPR, MG, CDP, TSH, GLYHGB #### [address] [address] Armoring Machine Operator: Hermilo Thapa MD Sodium [Moles/Vol] 139 mmol/L Normal 136-145 [facility] Comment on above: Performed By: #### C P, LIPR, MG, CDP, TSH, GLYHGB #### [facility] [employer] [address] [place] [address] Armoring Machine Operator: Hermilo Thapa MD Urea nitrogen [Mass/Vol] 21 mg/dL Normal 8-23 [facility] Comment on above: Performed By: #### C P, LIPR, MG, CDP, TSH, GLYHGB #### [address] [address] Armoring Machine Operator: Hermilo Thapa MD Hemoglobin A1Con 07-16-2023 Glucose [Mass/Vol] 206 mg/dL Normal [facility] Comment on above: Result Comment: The ADA and AACC recommend providing the estimated average glucose result to permit better patient understanding of their HBA1c result. Performed By: #### C P, LIPR, MG, CDP, TSH, GLYHGB #### [address] [address] Armoring Machine Operator: Hermilo Thapa MD HbA1c (Bld) [Mass fraction] 8.8 % High 4.0-6.0 [facility] Comment on above: Performed By: #### C P, LIPR, MG, CDP, TSH, GLYHGB #### [facility] [employer] [address] [place] [address] Armoring Machine Operator: Hermilo Thapa MD Lipid Profileon 07-16-2023 Cholesterol [Mass/Vol] 117 mg/dL Normal 0-199 [facility] Comment on above: Result Comment: Cholesterol Guidelines: <200 Desirable 200-240 Borderline >240 Undesirable Performed By: #### C P, LIPR, MG, CDP, TSH, GLYHGB #### [facility] [employer] [address] [place] [address] Armoring Machine Operator: Hermilo Thapa MD Cholesterol in HDL [Mass/Vol] 36 mg/dL Low >40 [facility] Comment on above: Result Comment: HDL Guidelines: <40 Undesirable 40-59 Borderline >59 Desirable Performed By: #### C P, LIPR, MG, CDP, TSH, GLYHGB #### [facility] [employer] [address] [place] [address] Armoring Machine Operator: Hermilo Thapa MD Cholesterol in LDL [Mass/Vol] 60 mg/dL Normal 0-100 [facility] Comment on above: Result Comment: LDL Guidelines: <100 Desirable 100-129 Near to/above Desirable 130-159 Borderline >159 Undesirable Direct (measured) LDL and calculated LDL are not interchangeable tests. Performed By: #### C P, LIPR, MG, CDP, TSH, GLYHGB #### [facility] [employer] [address] [place] [address] Armoring Machine Operator: Hermilo Thapa MD Cholesterol in VLDL [Mass/Vol] 21 mg/dL Normal [facility] Comment on above: Performed By: #### C P, LIPR, MG, CDP, TSH, GLYHGB #### [facility] [employer] [address] [place] [address] [phone] Armoring Machine Operator: Hermilo Thapa MD Cholesterol.total /Cholesterol in HDL [Mass ratio] 3.0 {ratio} Normal [facility] Comment on above: Performed By: #### C P, LIPR, MG, CDP, TSH, GLYHGB #### [facility] [employer] [address] [place] [address] Armoring Machine Operator: Hermilo Thapa MD Triglyceride [Mass/Vol] 107 mg/dL Normal <150 [facility] Comment on above: Result Comment: Triglyceride Guidelines: <150 Desirable 150-199 Borderline 200-499 High >499 Very high Based on AHA Guidelines for fasting triglyceride, November 2011. Performed By: #### C P, LIPR, MG, CDP, TSH, GLYHGB #### [address] [address] Armoring Machine Operator: Hermilo Thapa MD Magnesiumon 07-16-2023 Magnesium [Mass/Vol] 1.6 mg/dL Normal 1.6-2.4 [facility] Comment on above: Performed By: #### C P, LIPR, MG, CDP, TSH, GLYHGB #### [facility] [employer] [address] [place] [address] Armoring Machine Operator: Hermilo Thapa MD Thyroid Stim. Horm.on 2023 Thyroid Stim. Horm. 0.74 uIU/mL Normal 0.27-4.20 [facility] Comment on above: Performed By: #### C P, LIPR, MG, CDP, TSH, GLYHGB #### [address] [address] Armoring Machine Operator: Hermilo Thapa MD Type + Screenon 07-16-2023 Type + Screen Sample Expiration 07/31/2023,2359 Arm Band Number [id number] ABO/Rh(D) O POSITIVE Antibody Screen NEGATIVE Normal [facility] Comment on above: Performed By: #### T YS ####[address] [address] Lab Director: Hermilo Thapa MD Hemoglobin A1Con 06-30-2023 Glucose [Mass/Vol] 177 mg/dL Normal [facility] Comment on above: Result Comment: The ADA and AACC recommend providing the estimated average glucose result to permit better patient understanding of their HBA1c result. Performed By: #### G LYHGB #### [address] [address] Armoring Machine Operator: Hermilo Thapa MD #### TSHX #### [facility] [address] [place], [place] [phone] Armoring Machine Operator: Salvador Israel MD HbA1c (Bld) [Mass fraction] 7.8 % High 4.0-6.0 [facility] Comment on above: Performed By: #### G LYHGB #### [address] [address] Armoring Machine Operator: Hermilo Thapa MD #### TSHX #### [facility] [address] [place], [place] [phone] Armoring Machine Operator: Salvador Israel MD Lipid Profileon 06-30-2023 Cholesterol [Mass/Vol] 144 mg/dL Normal 0-199 [facility] Comment on above: Result Comment: Cholesterol Guidelines: <200 Desirable 200-240 Borderline >240 Undesirable Performed By: #### L IPR #### [address] [address] Armoring Machine Operator: Hermilo Thapa MD Cholesterol in HDL [Mass/Vol] 48 mg/dL Normal >40 [facility] Comment on above: Result Comment: HDL Guidelines: <40 Undesirable 40-59 Borderline >59 Desirable Performed By: #### L IPR #### [address] [address] Armoring Machine Operator: Hermilo Thapa MD Cholesterol in LDL [Mass/Vol] 73 mg/dL Normal 0-100 [facility] Comment on above: Result Comment: LDL Guidelines: <100 Desirable 100-129 Near to/above Desirable 130-159 Borderline >159 Undesirable Direct (measured) LDL and calculated LDL are not interchangeable tests. Performed By: #### L IPR #### [place] [address] [place] [address] Armoring Machine Operator: Hermilo Thapa MD Cholesterol in VLDL [Mass/Vol] 23 mg/dL Normal [facility] Comment on above: Performed By: #### L IPR #### [place] [address] [place] [address] Armoring Machine Operator: Hermilo Thapa MD Cholesterol.total /Cholesterol in HDL [Mass ratio] 3.0 {ratio} Normal [facility] Comment on above: Performed By: #### L IPR #### [address] [address] Armoring Machine Operator: Hermilo Thapa MD Triglyceride [Mass/Vol] 115 mg/dL Normal <150 [facility] Comment on above: Result Comment: Triglyceride Guidelines: <150 Desirable 150-199 Borderline 200-499 High >499 Very high Based on AHA Guidelines for fasting triglyceride, November 2011. Performed By: #### L IPR #### [address] [address] Armoring Machine Operator: Hermilo Thapa MD Laboratory - Hematology and Cell countson 06-29-2023 HbA1c (Bld) [Mass fraction] 7.8 % [facility] TSH w/reflex to FT4on 2023 Thyroid Stim. Horm. 3.23 uIU/mL Normal 0.30-5.00 [facility] Comment on above: Performed By: #### G LYHGB #### [address] [address] Armoring Machine Operator: Hermilo Thapa MD #### TSHX #### [facility] [address] [place] [address] Armoring Machine Operator: Salvador Israel MD CT ABDOMEN PELVIS [...] Etta Jay MD 06/20/23 Final result Normal [facility] HPV DNA High Riskon 06-16-19 HPV Interp Normal [facility] Comment on above: Result Comment: [...] other forensic purposes. Performed By: #### H [facility] ####[address] [id number] Lab Director: Hermilo Thapa MD HPV Type 16 Not detected Normal [facility] Comment on above: Performed By: #### H PVH ####[facility] [place], [place] [phone] Director: Hermilo Thapa MD HPV Type 18 Not detected Normal [facility] Comment on above: Performed By: #### H PVH ####[facility] [address] [place], [place] [phone] Director: Hermilo Thapa MD Other High Risk HPV Not detected Normal [facility] Comment on above: Performed By: #### H PVH ####[facility] [place] [address] Lab Director: Hermilo Thapa MD HPV Sample .THIN PREP Normal [facility] Comment on above: Performed By: #### H PVH ####[place] [address] [place] [address] Lab Director: Hermilo Thapa MD Source CERVICAL MATERIAL Normal [facility] Comment on above: Performed By: #### H PVH ####[place] [address] [place] [address] Lab Director: Hermilo Thapa MD Cytology Reporton 06-15-2023 Cytology report Cyto stain.thin prep Doc (Cvx/Vag) (NOTE) Path Number: [id number] DIAGNOSIS Imaged ThinPrep Pap - Cervical (1 [...] or for other forensic purposes. Performed at [facility], [address] [place] [address] . Source of Specimen: A: Imaged ThinPrep Pap - Cervical (1 monolayer slide) HPV Reflex?.................. ....HPV Regardless Clinical History Postmenopausal Z12.4 Encounter for screening for malignant neoplasm of cervix Processing Lab: [address] [phone] Interpretation performed at [address] [address] This Pap Test has been evaluated with [...] GYNECOLOGIC CYTOLOGY REPORT Patient Name: LESLI CLAY [facility] Rec: [id number] [facility] [employer] [facility] ANATOMIC PATHOLOGY [address] [place] [address]. [place] [address] Normal [facility] SURGICAL PATHOLOGY REFERENCE LAB CONSULTon 05-29-2023 CASE REPORT Normal [facility] Comment on above: Order Comment: Speci men Type: FORMALIN-FIXED PARAFFIN-EMBEDDED TISSUE SPECIMEN Ordering Facility: [facility] Address: [address] [place], [place] [phone] Result Comment: Surg ical Pathology Report Case: [id number] Authorizing Provider: Lukasz Neal MD Collected: 05/29/2023 12:39 PM Ordering Location: [facility] Received: 05/29/2023 12:38 PM [facility] Pathologist: Jeri Dickerson MD Specimen: Slide(s), 2 SLIDES ([id number]) Performed By: #### L [id number] #### [facility] CLIA [id number] [address] [place] [address] OF [facility] CLINICAL HISTORY CONSULT REQUESTED Normal C [facility] Comment on above: Order Comment: Speci men Type: FORMALIN-FIXED PARAFFIN-EMBEDDED TISSUE SPECIMEN Ordering Facility: [facility] Address: [address] [place], [place] [phone] Performed By: #### L [id number] #### [facility] CLIA [id number] [address] [place] [address] STATES OF [facility] DIAGNOSIS COMMENT Thank you for sendin g [...] give me a call at . Normal [facility] Comment on above: Order Comment: Speci men Type: FORMALIN-FIXED PARAFFIN-EMBEDDED TISSUE SPECIMEN Ordering Facility: [facility] Address: [address] [place], [place] [phone] Performed By: #### L [id number] #### [facility] CLIA [id number] [address] [place] [address] FINAL DIAGNOSIS Normal [facility] Comment on above: Order Comment: Speci men Type: FORMALIN-FIXED PARAFFIN-EMBEDDED TISSUE SPECIMEN Ordering Facility: [facility] Address: [address] [place], [place] [phone] Result Comment: Revi ew of outside slides, dated 05/26/2023: Endometrium, curettage: -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 Performed By: #### L [id number] #### [facility] CLIA [id number] [address] [place] [address] [place] FINAL PERFORMING LAB Normal [facility] Comment on above: Order Comment: Speci men Type: FORMALIN-FIXED PARAFFIN-EMBEDDED TISSUE SPECIMEN Ordering Facility: [facility] Address: [address] [place], [place] [phone] Result Comment: Diag nostic interpretation performed at [facility], [address] [place] [address] CLIA# [id number] Wardrobe Coordinator: Josh Orellana M.D. Performed By: #### L [id number] #### [facility] CLIA [id number] [address] [place] [address] [place] No Panel Informationon 05-10 Bedside Glucose 121 [facility] Laboratory - Chemistry and C hemistry - challengeon 04-22-2023 Albumin [Mass/Vol] 4.0 g/dL [facility] ALP [Catalytic activity/Vol] 104 U/L [facility] ALT [Catalytic activity/Vol] 19 U/L [facility] AST [Catalytic activity/Vol] 17 U/L [facility] Bilirubin [Mass/Vol] 0.2 mg/dL [facility] Calcium [Mass/Vol] 9.8 mg/dL [facility] Chloride [Moles/Vol] 101 mmol/L [facility] CO2 [Moles/Vol] 28 mmol/L [facility] Creatinine [Mass/Vol] 0.75 mg/dL [facility] Glucose [Mass/Vol] 228 mg/dL [facility] Potassium [Moles/Vol] 5.0 mmol/L [facility] Protein [Mass/Vol] 6.8 g/dL [facility] Sodium [Moles/Vol] 137 mmol/L [facility] Urea nitrogen [Mass/Vol] 21 mg/dL [facility] Laboratory - Hematology and Cell countson 04-22-2023 HbA1c (Bld) [Mass fraction] 8.9 % [facility] [place] No Panel Informationon 04-21 Estimated GFR (Non- 89 mL/min [facility] No Panel Informationon 04-07 Bedside Glucose 182 [facility] A1C HEMOGLOBINon 02-03-2023 HbA1c (Bld) [Mass fraction] 9.7 % [employer] Other Glucose - FINGER ST[employer]on Glucose [Mass/Vol] 178 mg/dL [employer] Other HbA1c (Bld) [Mass fraction]o n 02-03-2023 A1C HEMOGLOBIN [employer] Other Glucose - FINGER STICKon Glucose [Mass/Vol] 180 mg/dL [employer] Other A1C HEMOGLOBINon 10-03-2022 HbA1c (Bld) [Mass fraction] 8.3 % [employer] Other Glucose - FINGER STICKon Glucose [Mass/Vol] 211 mg/dL [employer] Other HbA1c (Bld) [Mass fraction]o n 10-03-2022 A1C HEMOGLOBIN [employer] Other Creatinine (Bld) [Mass/Vol]O rdered By: Martine Tobias on 09-19-2022 Creatinine [Mass/Vol] 0.7 mg/dL 0.6-1.3 [facility] [place] Comment on above: ER/ESD physician is notified/shown all ISTAT results.Critical values may be confirmed by laboratory testing ifdeemed necessary by ER attending doctor. A1C HEMOGLOBINon 06-06-2022 HbA1c (Bld) [Mass fraction] 8.0 % [employer] Other Glucose - FINGER STICKon Glucose [Mass/Vol] 156 mg/dL [employer] Other HbA1c (Bld) [Mass fraction]o n 06-06-2022 A1C HEMOGLOBIN [facility] Other POINT OF CARE GLUCOSEon 05-17 Glucose [Mass/Vol] 185 mg/dL Critically high 74-106 [facility] Comment on above: Performed By: #### P OCGLUC #### [facility] [address] [address] [address] Keegan Neal A1C HEMOGLOBINon 03-06-2022 HbA1c (Bld) [Mass fraction] 7.8 % [employer] Other CREATININEon 03-06-2022 Creatinine [Mass/Vol] 0.82 mg/dL Normal 0.55-1.02 [facility] Comment on above: Performed By: #### C EJ #### [facility] [address] [address] [address] Keegan Neal EGFR-AF BOLIVIAN >60 Normal >=60 [facility] Comment on above: Performed By: #### C EJ #### [facility] [address] [place] [address] Dr. Keegan Neal EGFR-NON AF BOLIVIAN >60 Normal >=60 [facility] Comment on above: Performed By: #### C EJ #### [facility] [address] LSPINE WO W [...] by: BLANE THOMAS Date: 2022-03-06 11:22 Normal [facility] Glucose - FINGER STICKon Glucose [Mass/Vol] 200 mg/dL [employer] Other HbA1c (Bld) [Mass fraction]o n 03-06-2022 A1C HEMOGLOBIN [employer] Other A1C HEMOGLOBINon 10-28-2021 HbA1c (Bld) [Mass fraction] 7.0 % [employer] Other Glucose - FINGER STICKon Glucose [Mass/Vol] 110 mg/dL [employer] Other HbA1c (Bld) [Mass fraction]o n 10-28-2021 A1C HEMOGLOBIN [employer] Other A1C HEMOGLOBINon 07-04-2021 HbA1c (Bld) [Mass fraction] 6.6 % [employer] Other Glucose - FINGER STICKon Glucose [Mass/Vol] 110 mg/dL [employer] Other HbA1c (Bld) [Mass fraction]o n 07-04-2021 A1C HEMOGLOBIN [employer] Other A1C HEMOGLOBINon 11-21-2020 HbA1c (Bld) [Mass fraction] 6.0 % [employer] Other Glucose - FINGER STICKon Glucose [Mass/Vol] 98 mg/dL [employer] Other HbA1c (Bld) [Mass fraction]o n 11-21-2020 A1C HEMOGLOBIN [employer] Other Discharge Summaryon 09-26-19 Discharge Summary MR#: [id number] [...] 09/24/2016/02:52 P/Que Cano M.D.Date Trans: 09/25/2016 08:08 A/mmoDN_JN:[id number] cc: Rosales Taylor M.D. [address] [facility] [address] [place] [facility] KNEE RIGHT 3 Son 7 KNEE RIGHT 3 [facility] Efhtxqnt[address] [place] [id number] P atient Name: LESLI CLAY : 1960ex: FAge: Race: WhiteMRN: [id number]. Location: 84Patient Status: Date: 09/25/2016 8:15:00 AMCompleted Date: 09/25/2016 08:22 AMRequesting Provider: QUE BLAKE Attending Provider: Report Copy To: Signs & Symptoms: Z96.651 Presence of right artificial knee joint H63Dquedgm: AthenaComments: , , , Ordering Provider - QUE BLAKE MD , Exam: KNEE RIGHT 3 VWSAccession #: [id number] ======KNEE RIGHT 3 VWS 09/25/2016 8:22 AM [...] changes. Electronically signed by:Mindy Tomas. Transcribed by: [email or web address], User Resident: Electronically Signed by: MINDY TOMAS @ 09/25/2016 04:[address] [facility] Comment on above: Order Comment: , , = ========= , Ordering Provider - QUE BLAKE MD , Consultationon 09-21-2016 Consultation MR[id number]li [facility] Date of Service: [...] was given renewal of Keflex. We prescribed Floweree for pain controland we applied an Armando wrap for edema control.Reviewed By:Desmond Mena MD 09/22/2016 08:26 AElectronically Signed by:Martin Fonseca MD 09/25/2016 03:22 P ___Martin Fonseca MD I was not present but assume all responsibility for the exam. NOTBILLABLEDate Dict: 09/21/2016/10:51 A/Desmond Mena MDDate Trans: 09/21/2016 11:52 A/mmoDN_JN:[id number] cc: Rosales Taylor M.D. [address] [facility] [address] [facility] BASIC METABOLIC PANELon 08-0 Calcium 9.6 mg/dL Normal 8.6-10.[address] [facility] Comment on above: Performed By: #### 0 0071 ####[facility] [place] [address], [facility] Chloride 99 mmol/L Normal 98-[address] [facility] Comment on above: Performed By: #### 0 0071 ####[facility] [place] [address], [facility] CO2 29 mmol/L Normal 21-[address] [facility] Comment on above: Performed By: #### 0 0071 ####[facility] [place] [address], [place] Creatinine 0.91 mg/dL Normal 0.60-1.20 [facility] Comment on above: Performed By: #### 0 0071 ####[facility] [place] [address], [place] eGFR (black) mL/min/{1.73_m2} Normal >60 [facility] Comment on above: Performed By: #### 0 0071 ####[facility] [place] [address], [place] eGFR (non-black) mL/min/{1.73_m2} Normal >60 [facility] Comment on above: Performed By: #### 0 0071 ####[facility] [place] [address], [facility] Glucose mass conc 151 mg/dL High 70-100 [facility] Comment on above: Performed By: #### 0 0071 ####[address] [facility] [place] [address], [place] Potassium molar conc 4.0 mmol/L Normal 3.5-5.1 [facility] Comment on above: Performed By: #### 0 0071 ####[facility] [place] [address], [place] Sodium 137 mmol/L Normal 136-[address] [facility] Comment on above: Performed By: #### 0 0071 ####[facility] [place] [address], [place] Urea nitrogen 13 mg/dL Normal 7-25 [facility] Comment on above: Performed By: #### 0 0071 ####[facility] [facility] C REACTIVE PROTEINon 017 C reactive protein (CRP) 28.5 mg/L High 0.0-7.0 [facility] Comment on above: Performed By: #### 0 0071 ####[facility] [facility] [place] [address], [facility] CBC W/DIFFon 09-20-2016 Basophils Auto #/vol (Bld) 0.5 % Normal 0.0-2.[address] [facility] Comment on above: Performed By: #### 0 0071 ####[address] [facility] [place] [address], [facility] Eosinophils/100 leukocytes 2.1 % Normal 0.0-5.0 [facility] Comment on above: Performed By: #### 0 0071 ####[facility] [facility].[address] Erythrocyte distribution width Auto Ratio (RBC) 17.1 % High 11.5-16.9 [facility] Comment on above: Performed By: #### 0 0071 ####[address] [facility].[address] Erythrocytes (RBC) 3.39 mill/mm3 Low 3.50-5.[address] [facility] Comment on above: Performed By: #### 0 0071 ####[facility] [facility].[address] Hematocrit (HCT) 31.4 % Low 36.0-48.0 [facility] Comment on above: Performed By: #### 0 0071 ####[facility] Hemoglobin mass conc (Bld) 10.3 g/dL Low 12.0-15.[address] [facility] Comment on above: Performed By: #### 0 0071 ####[facility] Lymphocytes/100 leukocytes 19.8 % Low 20.0-40.[address] [facility] Comment on above: Performed By: #### 0 0071 ####[facility] [facility] MCH 30.3 pg Normal 24.0-32.[address] [facility] Comment on above: Performed By: #### 0 0071 ####[facility] [facility].[address] MCHC mass conc (RBC) 32.7 g/dL Normal 32.0-36.[address] [facility] Comment on above: Performed By: #### 0 0071 ####[facility] [facility].[address] MCV 92.6 fL Normal 80.0-100.[address] [facility] Comment on above: Performed By: #### 0 0071 ####[facility] [facility].[address] METHOD Normal [facility] Comment on above: Result Comment: Auto mated differential performedNormal RBC Morphology Performed By: #### 0 0071 ####[facility] [facility].[address] MONOS 5.8 % Normal 2-[address] [facility] Comment on above: Performed By: #### 0 0071 ####[facility] [facility].[address] Neutrophils/100 leukocytes 71.8 % High 50-[address] [facility] Comment on above: Performed By: #### 0 0071 ####[facility] [place] [address], [facility] PLAT CNT 400 Thou/mm3 Normal 100-400 [facility] Comment on above: Performed By: #### 0 0071 ####[facility] [place] [address], [facility] WBC (Leukocytes) 10.6 Thou/mm3 High 4.0-10.[address] [facility] Comment on above: Performed By: #### 0 0071 ####[facility] [place] [address], [facility] SEDIMENTATION RATEon 017 SED RATE 107 mm/hr High 0-[address] [facility] Comment on above: Performed By: #### 0 0071 ####[facility] [place] [address], [facility] POC GLUCOSE LABon 09-15-2016 Glucose mass conc 187 mg/dL High 70-100 [facility] Comment on above: Performed By: #### 0 0071 ####[facility] [place] [address], [facility] Glucose mass conc 153 mg/dL High 70-100 [facility] Comment on above: Performed By: #### 5 5401, 43390 ####[facility] [place] [address], [facility] POC GLUCOSE LABon 09-14-2016 Glucose mass conc 198 mg/dL High 70-100 [facility] Comment on above: Performed By: #### 5 1771, 74114 ####[facility] [place] [address], [place] Glucose mass conc 188 mg/dL High 70-100 [facility] Comment on above: Performed By: #### 5 6101, 08144 ####[facility] [place] [address], [place] Glucose mass conc 192 mg/dL High 70-100 [facility] Comment on above: Performed By: #### 5 6100, 67954 ####[facility] [place] [address], [place] Glucose mass conc 155 mg/dL High 70-100 [facility] Comment on above: Performed By: #### 5 6100, 59930 ####[facility] [place] [address], [place] POC GLUCOSE LABon 09-13-2016 Glucose mass conc 223 mg/dL High 70-100 [facility] Comment on above: Performed By: #### 5 6100, 58286 ####[facility] [place] [address], [place] Glucose mass conc 212 mg/dL High 70-100 [facility] Comment on above: Performed By: #### 5 6100, 34779 ####[facility] [place] [address], [place] Glucose mass conc 111 mg/dL High 70-100 [facility] Comment on above: Performed By: #### 5 6100, 43244 ####[facility] [place] [address], [place] Glucose mass conc 199 mg/dL High 70-100 [facility] Comment on above: Performed By: #### 5 6100, 89029 ####[facility] [place] [address], [place] Glucose mass conc 149 mg/dL High 70-100 [facility] Comment on above: Performed By: #### 5 6100, 53049 ####[facility] [place] [address], [place] POC GLUCOSE LABon 09-12-2016 Glucose mass conc 205 mg/dL High 70-100 [facility] Comment on above: Performed By: #### 5 610, 78043 ####[facility] [place] [address], [place] Glucose mass conc 132 mg/dL High 70-100 [facility] Comment on above: Performed By: #### 5 610, 88080 ####[facility] [place] [address], [place] Glucose mass conc 184 mg/dL High 70-100 [facility] Comment on above: Performed By: #### 5 610, 50468 ####[facility] [place] [address], [place] Glucose mass conc 158 mg/dL High 70-100 [facility] Comment on above: Performed By: #### 5 6100, 97412 ####[facility] [place] [address], [place] POC GLUCOSE LABon 09-11-2016 Glucose mass conc 194 mg/dL High 70-100 [facility] Comment on above: Performed By: #### 5 6100, 96488 ####[facility] [place] [address], [place] Glucose mass conc 192 mg/dL High 70-100 [facility] Comment on above: Performed By: #### 5 6100, 40187 ####[facility] [place] [address], [place] Glucose mass conc 221 mg/dL High 70-100 [facility] Comment on above: Performed By: #### 5 610, 87943 ####[facility] [place] [address], [place] Glucose mass conc 147 mg/dL High 70-100 [facility] Comment on above: Performed By: #### 5 610, 77423 ####[facility] [place] [address], [place] POC GLUCOSE LABon 07-26-2017 Glucose mass conc 224 mg/dL High 70-100 [facility] Comment on above: Performed By: #### 5 6101, 24774 ####[facility] [facility] [place] [address], [facility] Glucose mass conc 156 mg/dL High 70-100 [facility] Comment on above: Performed By: #### 1 0008 ####[facility] [facility] [place] [address], [facility] Glucose mass conc 240 mg/dL High 70-100 [facility] Comment on above: Performed By: #### 1 0008 ####[facility] [facility] [place] [address], [facility] Glucose mass conc 171 mg/dL High 70-100 [facility] Comment on above: Performed By: #### 1 0008 ####[facility] [facility].[address] BASIC METABOLIC PANELon 07-2 Calcium 8.4 mg/dL Low 8.6-10.[address] [facility] Comment on above: Order Comment: No: D o not add to previous draw Performed By: #### 1 0008 ####[facility] [facility] [place] [place] [address], [facility] Chloride 99 mmol/L Normal 98-[address] [facility] Comment on above: Order Comment: No: D o not add to previous draw Performed By: #### 1 0008 ####[facility] [facility] [place] [address], [facility] CO2 27 mmol/L Normal 21-[address] [facility] Comment on above: Order Comment: No: D o not add to previous draw Performed By: #### 1 0008 ####[facility] [facility] [place] [address], [facility] Creatinine 1.11 mg/dL Normal 0.60-1.[address] [facility] Comment on above: Order Comment: No: D o not add to previous draw Performed By: #### 1 0008 ####[facility] [place] [address], [facility] eGFR (black) mL/min/{1.73_m2} Normal >60 [facility] Comment on above: Order Comment: No: D o not add to previous draw Performed By: #### 1 0008 ####[facility] [place] [address], [facility] eGFR (non-black) 51 ml/min/1.73sq m Abnormal >[address] [facility] Comment on above: Order Comment: No: D o not add to previous draw Performed By: #### 1 0008 ####[facility] [place] [address], [facility] Glucose mass conc 161 mg/dL High 70-100 [facility] Comment on above: Order Comment: No: D o not add to previous draw Performed By: #### 1 0008 ####[facility] [place] [address], [facility] Potassium molar conc 4.2 mmol/L Normal 3.5-5.[address] [facility] Comment on above: Order Comment: No: D o not add to previous draw Performed By: #### 1 0008 ####[facility] [place] [address], [facility] Sodium 134 mmol/L Low 136-[address] [facility] Comment on above: Order Comment: No: D o not add to previous draw Performed By: #### 1 0008 ####[facility] [place] [address], [facility] Urea nitrogen 24 mg/dL Normal 7-25 [facility] Comment on above: Order Comment: No: D o not add to previous draw Performed By: #### 1 0008 ####[facility] CBC W/DIFFon 09-09-2016 Basophils Auto #/vol (Bld) 0.2 % Normal 0.0-2.[address] [facility] Comment on above: Order Comment: No: D o not add to previous draw Performed By: #### 1 0008 ####[address] Eosinophils/100 leukocytes 1.0 % Normal 0.0-5.[address] [facility] Comment on above: Order Comment: No: D o not add to previous draw Performed By: #### 1 0008 ####[address] Erythrocyte distribution width Auto Ratio (RBC) 16.9 % Normal 11.5-16.[address] [facility] Comment on above: Order Comment: No: D o not add to previous draw Performed By: #### 1 0008 ####[address] [place] [address] Erythrocytes (RBC) 3.31 mill/mm3 Low 3.50-5.50 [facility] Comment on above: Order Comment: No: D o not add to previous draw Performed By: #### 1 0008 ####[address] Hematocrit (HCT) 30.7 % Low 36.0-48.0 The [facility] Comment on above: Order Comment: No: D o not add to previous draw Performed By: #### 1 0008 ####[address] Hemoglobin mass conc (Bld) 10.0 g/dL Low 12.0-15.0 [facility] Comment on above: Order Comment: No: D o not add to previous draw Performed By: #### 1 0008 ####[address] [place] [address], [facility] Lymphocytes/100 leukocytes 25.6 % Normal 20.0-40.[address] [facility] Comment on above: Order Comment: No: D o not add to previous draw Performed By: #### 1 0008 ####[facility] [place] [address], [facility] MCH 30.3 pg Normal 24.0-32.[address] [facility] Comment on above: Order Comment: No: D o not add to previous draw Performed By: #### 1 0008 ####[facility] [facility] [place] [address], [facility] MCHC mass conc (RBC) 32.7 g/dL Normal 32.0-36.[address] [facility] Comment on above: Order Comment: No: D o not add to previous draw Performed By: #### 1 0008 ####[facility] [facility] [place] [address], [facility] MCV 92.7 fL Normal 80.0-100.[address] [facility] Comment on above: Order Comment: No: D o not add to previous draw Performed By: #### 1 0008 ####[facility] [facility] [place] [address], [facility] METHOD Normal [facility] Comment on above: Order Comment: No: D o not add to previous draw Result Comment: Auto mated differential performedNormal RBC Morphology Performed By: #### 1 0008 ####[facility] [place] [address], [facility] MONOS 6.9 % Normal 2-[address] [facility] Comment on above: Order Comment: No: D o not add to previous draw Performed By: #### 1 0008 ####[facility] [place] [address], [facility] Neutrophils/100 leukocytes 66.3 % Normal 50-[address] [facility] Comment on above: Order Comment: No: D o not add to previous draw Performed By: #### 1 0008 ####[facility] [place] [address], [facility] PLAT CNT 304 Thou/mm3 Normal 100-400 [facility] Comment on above: Order Comment: No: D o not add to previous draw Performed By: #### 1 0008 ####[facility] WBC (Leukocytes) 8.7 Thou/mm3 Normal 4.0-10.[address] [facility] Comment on above: Order Comment: No: D o not add to previous draw Performed By: #### 1 0008 ####[facility] [facility].[address] [address] Operative Reporton 09-09-201 7 Operative Report MR#: [id number] [facility]li Clay Room #: [id number] Discharge Date: Birthdate: 1960 OPERATIVE REPORTDATE OF [...] 09/08/2016/08:19 P/Que Cano M.D.Date Trans: 09/09/2016 04:17 A/Nigel_JN:[id number] cc: Rosales Taylor M.D. [address] [facility] [address] [facility] POC GLUCOSE LABon 09-09-2016 Glucose mass conc 229 mg/dL High 70-100 The [facility] Comment on above: Performed By: #### 1 0008 ####[facility] [facility] [place] [address], [place] Glucose mass conc 159 mg/dL High 70-100 The [facility] Comment on above: Performed By: #### 1 0008 ####[facility] [facility] [place] [address], [place] Glucose mass conc 182 mg/dL High 70-100 [facility] Comment on above: Performed By: #### 1 0008 ####[facility] [facility] [place] [address], [place] Glucose mass conc 159 mg/dL High 70-100 [facility] Comment on above: Performed By: #### 1 0008 ####[facility] [facility] [place] [address], [place] Glucose mass conc 172 mg/dL High 70-100 The [facility] Comment on above: Performed By: #### 1 0008 ####[facility] [facility] [place] [address], [place] POC GLUCOSE LABon 09-08-2016 Glucose mass conc 175 mg/dL High 70-100 [facility] Comment on above: Performed By: #### 8 5499 ####[facility] [facility] [place] [address], [facility] Glucose mass conc 165 mg/dL High 70-100 [facility] Comment on above: Performed By: #### 8 5499 ####[facility] [facility] [place] [address], [facility] Glucose mass conc 173 mg/dL High 70-100 [facility] Comment on above: Performed By: #### 8 5499 ####[facility] [facility] [place] [address], [facility] PORTABLE KNEE RIGHT 2 VWSon 09-08-2016 PORT[address] KNEE RIGHT [address] [facility] CampusDepartment of Hubajpzmb[address] [place] [id number] P atient Name: LESLI CLAY : 1960ex: FAge: Race: WhiteMRN: [id number]. Location: OUTPPatient Status: OVisit #: [id number] Date: 09/08/2016 2:05:00 PMCompleted Date: 09/08/2016 02:45 PMRequesting Provider: QUE CANO Attending Provider: QUE BLAKE Report Copy To: Signs & Symptoms: Pain ( specify Location)History: Patient history not availableComments: Hardware Evaluation, please do in PACUExam: PORTABLE KNEE RIGHT 2 VWSAccession #: [id number] ======PORTABLE KNEE RIGHT 2 VWS 09/08/2016 2:45 [...] arthroplasty Electronically signed by:Joan Cormier. Transcribed by: [email or web address], User Resident: Electronically Signed by: JOAN CORMIER @ 09/08/2016 02:[address] [facility] Comment on above: Order Comment: Hardw are Evaluation, please do in PACU APTTon 08-25-2016 aPTT 33.0 s Normal 25.0-35.[address] [facility] Comment on above: Result Comment: ALL [...] THIS PURPOSE. Performed By: #### 5 6101, [id number] ####[place] [address] BASIC METABOLIC PANELon - Calcium 9.9 mg/dL Normal 8.6-10.[address] [facility] Comment on above: Performed By: #### 0 0071 ####[facility] [facility] [place] [address], [facility] Chloride 96 mmol/L Low 98-[address] [facility] Comment on above: Performed By: #### 0 0071 ####[facility] [facility].[address] CO2 29 mmol/L Normal 21-[address] [facility] Comment on above: Performed By: #### 0 0071 ####[facility] [facility] [place] [address], [facility] Creatinine 0.94 mg/dL Normal 0.60-1.[address] [facility] Comment on above: Performed By: #### 0 0071 ####[facility] [place] [address], [facility] eGFR (black) mL/min/{1.73_m2} Normal >60 The [facility] Comment on above: Performed By: #### 0 0071 ####[facility] [facility] [place] [address], [facility] eGFR (non-black) mL/min/{1.73_m2} Normal >[address] [facility] Comment on above: Performed By: #### 0 0071 ####[facility] [facility] [place] [address], [facility] Glucose mass conc 128 mg/dL High 70-100 [facility] Comment on above: Performed By: #### 0 0071 ####[facility] [facility] [place] [address], [facility] Potassium molar conc 4.0 mmol/L Normal 3.5-5.[address] [facility] Comment on above: Performed By: #### 0 0071 ####[facility] [facility] [place] [address], [facility] Sodium 135 mmol/L Low 136-[address] [facility] Comment on above: Performed By: #### 0 0071 ####[facility] [facility] [place] [address], [facility] Urea nitrogen 15 mg/dL Normal 7-25 The [facility] Comment on above: Performed By: #### 0 0071 ####[facility] [facility] [place] [address], [facility] CBC W/DIFFon 08-25-2016 Basophils Auto #/vol (Bld) 0.2 % Normal 0.0-2.[address] [facility] Comment on above: Performed By: #### 5 0103 ####[facility] [facility].[address] Eosinophils/100 leukocytes 1.6 % Normal 0.0-5.[address] [facility] Comment on above: Performed By: #### 5 3 ####[facility] [facility].[address] Erythrocyte distribution width Auto Ratio (RBC) 16.9 % Normal 11.5-16.[address] [facility] Comment on above: Performed By: #### 3 ####[facility] Erythrocytes (RBC) 4.18 mill/mm3 Normal 3.50-5.[address] [facility] Comment on above: Performed By: #### 3 ####[place] [address] [facility].[address] Hematocrit (HCT) 38.2 % Normal 36.0-48.0 The [facility] Comment on above: Performed By: #### 5 3 ####[place] [address] Hemoglobin mass conc (Bld) 12.5 g/dL Normal 12.0-15.[address] [facility] Comment on above: Performed By: #### 5 3 ####[facility] Lymphocytes/100 leukocytes 21.4 % Normal 20.0-40.[address] [facility] Comment on above: Performed By: #### 5 3 ####[facility] MCH 29.9 pg Normal 24.0-32.[address] [facility] Comment on above: Performed By: #### 5 3 ####[facility] [facility] [place] [address], [facility] MCHC mass conc (RBC) 32.7 g/dL Normal 32.0-36.0 [facility] Comment on above: Performed By: #### 5 0103 ####[facility] [place] [address], [facility] MCV 91.4 fL Normal 80.0-100.[address] [facility] Comment on above: Performed By: #### 5 0103 ####[facility] [facility] [place] [address], [facility] METHOD Normal The [facility] Comment on above: Result Comment: Auto mated differential performedNormal RBC Morphology Performed By: #### 5 0103 ####[facility] [facility] [place] [address], [facility] MONOS 5.2 % Normal 2-[address] [facility] Comment on above: Performed By: #### 5 0103 ####[facility] [facility] [place] [address], [facility] Neutrophils/100 leukocytes 71.6 % High 50-[address] [facility] Comment on above: Performed By: #### 5 0103 ####[facility] [facility] [place] [address], [facility] PLAT CNT 351 Thou/mm3 Normal 100-400 The [facility] Comment on above: Performed By: #### 5 0103 ####[facility] [facility] [place] [address], [facility] WBC (Leukocytes) 12.0 Thou/mm3 High 4.0-10.0 [facility] Comment on above: Performed By: #### 5 0103 ####[facility] [place] [address], [facility] PROTHROMBIN TIMEon 7 INR Coag RelTime (PPP) 0.97 {INR} Normal 0.91-1.16 The [facility] Comment on above: Result Comment: ACCC P RECOMMENDED INR FOR WARFARIN THERAPY CONDITION INRPROPHYLAXIS OF VENOUS THROMBOSIS 2-3(HIGH-RISK SURGERY)TREATMENT OF VENOUS THROMBOSIS 2-3TREATMENT OF PULMONARY EMBOLISM 2-3PREVENTION OF SYSTEMIC EMBOLISM: 2-3 ACUTE MYOCARDIAL INFARCTION TISSUE HEART VALVES VALVULAR HEART DISEASE ATRIAL FIBRILLATION RECURRENT SYSTEMIC EMBOLISMMECHANICAL HEART VALVE 2.5-3.5 FROM: ORAL ANTICOAGULANTS. MECHANISM OF ACTION, CLINICALEFFECTIVENESS, AND OPTIMAL THERAPEUTIC RANGE. [id number]. Performed By: #### 5 6101, [id number] ####[facility] [facility].[address] Prothrombin time (PT) Coag time (PPP) 12.9 s Normal 12.3-14.8 [facility] Comment on above: Result Comment: ALL RESULTS MUST BE INTERPRETED WITH RESPECT TO BLOOD DRAWING ARTIFACTOR DILUTION ERROR OF ANTICOAGULANT AT THE TIME OF SAMPLING. Performed By: #### 5 6101, [id number] ####[facility] [facility] [place] [address], [facility] TYPE AND SCREENon 08-25-2016 ABO INTERPRETATION O Normal The [facility] Comment on above: Performed By: #### 6 2586 ####[place] [address] [facility] [place] [address], [facility] ANTIBODY SCREEN Negative Normal The [facility] Comment on above: Performed By: #### 6 2586 ####[place] [address] RH INTERPRETATION Positive Normal The [facility] Comment on above: Performed By: #### 6 2586 ####[place] [address] [facility].[address] URINALYSISon 08-25-2016 Bilirubin (total) Negative Normal NEGATIVE The [facility] Comment on above: Performed By: #### 1 0008 ####[address] BLOOD MODERATE Abnormal NEGATIVE [facility] Comment on above: Performed By: #### 1 0008 ####[address] EPIS MOD Abnormal FEW [facility] Comment on above: Performed By: #### 1 0008 ####[address] Erythrocytes (RBC) 3-5 Abnormal 0-[address] [facility] Comment on above: Performed By: #### 1 0008 ####[place] [address] Glucose mass conc Negative Normal NEGATIVE The [facility] Comment on above: Performed By: #### 1 0008 ####[address] KETONE Negative Normal NEGATIVE [facility] Comment on above: Performed By: #### 1 0008 ####[address] LEUK ZEYNEP TRACE Abnormal NEGATIVE [facility] Comment on above: Performed By: #### 1 0008 ####[address] pH of blood 7.0 [pH] Normal 5.0-8.0 The [facility] Comment on above: Performed By: #### 1 0008 ####[facility] [place] [address], [facility] Protein Negative Normal NEGATIVE The [facility] Comment on above: Performed By: #### 1 0008 ####[facility] [place] [address], [place] SPEC GRAV 1.006 Low 1.015-1.020 The [facility] Comment on above: Performed By: #### 1 0008 ####[facility] [facility] [place] [address], [place] Urine, appearance CLEAR Normal CLEAR The [facility] Comment on above: Performed By: #### 1 0008 ####[facility] [facility] [place] [address], [place] Urine, bacteria in sediment MANY Abnormal NONE SEEN The [facility] Comment on above: Performed By: #### 1 0008 ####[facility] [facility] [place] [place] [address], [place] Urine, color STRAW Abnormal YELLOW The [facility] Comment on above: Performed By: #### 1 0008 ####[facility] [facility] [place] [place] [address], [place] Urine, nitrite presence Negative Normal NEGATIVE The [facility] Comment on above: Performed By: #### 1 0008 ####[facility] [facility] [place] [place] [address], [place] WBC UA 11-20 Abnormal 0-[address] [facility] Comment on above: Performed By: #### 1 0008 ####[facility] [facility] [place] [place] [address], [facility] Vital Signs Date Time Vital Sign Value Performing Clinician Naai alicey 09-23-2024 15:25-0400 Body mass index (BMI) [Ratio] 50.84 kg/m2 Lalitha Trujillo SENIOR DATASTAGE DEVELOPER Work Phone: [facility] 09-23-2024 15:25-0400 Body weight 130.18 kg Lalitha Trujillo SENIOR DATASTAGE DEVELOPER Work Phone: [facility] 09-23-2024 15:25-0400 Diastolic blood pressure 74 mm[Hg] Lalitha Trujillo SENIOR DATASTAGE DEVELOPER Work Phone: [facility] 09-23-2024 15:25-0400 Heart rate 87 /min Lalitha Trujillo SENIOR DATASTAGE DEVELOPER Work Phone: [facility] 09-23-2024 15:25-0400 SaO2% (BldA) [Mass fraction] 95 % Lalitha Trujillo SENIOR DATASTAGE DEVELOPER Work Phone: [facility] 09-23-2024 15:25-0400 Systolic blood pressure 138 mm[Hg] Lalitha Trujillo SENIOR DATASTAGE DEVELOPER Work Phone: [facility] 09-14-2024 14:08-0400 Body height 160 cm Lalitha Trujillo SENIOR DATASTAGE DEVELOPER Work Phone: [facility] 09-14-2024 14:08-0400 Body mass index (BMI) [Ratio] 51.02 kg/m2 Lalitha Trujillo SENIOR DATASTAGE DEVELOPER Work Phone: [facility] 09-14-2024 14:08-0400 Body weight 130.64 kg Lalitha Trujillo SENIOR DATASTAGE DEVELOPER Work Phone: [facility] 09-14-2024 14:08-0400 Diastolic blood pressure 74 mm[Hg] Lalitha Trujillo SENIOR DATASTAGE DEVELOPER Work Phone: [facility] 09-14-2024 14:08-0400 Heart rate 78 /min Lalitha Trujillo SENIOR DATASTAGE DEVELOPER Work Phone: [facility] 09-14-2024 14:08-0400 Respiratory rate 18 /min Lalitha Trujillo SENIOR DATASTAGE DEVELOPER Work Phone: [facility] 09-14-2024 14:08-0400 SaO2% (BldA) [Mass fraction] 98 % Lalitha Trujillo SENIOR DATASTAGE DEVELOPER Work Phone: [facility] 09-14-2024 14:08-0400 Systolic blood pressure 128 mm[Hg] Lalitha Trujillo SENIOR DATASTAGE DEVELOPER Work Phone: [facility] 08-30-2024 12:31-0400 Body mass index (BMI) [Ratio] 50.95 kg/m2 Lalitha Trujillo SENIOR DATASTAGE DEVELOPER Work Phone: [facility] 08-30-2024 12:31-0400 Body temperature 97.3 [degF] Lalitha Trujillo SENIOR DATASTAGE DEVELOPER Work Phone: [facility] 08-30-2024 12:31-0400 Body weight 130.46 kg Lalitha Trujillo SENIOR DATASTAGE DEVELOPER Work Phone: [facility] 08-30-2024 12:31-0400 Diastolic blood pressure 78 mm[Hg] Lalitha Trujillo SENIOR DATASTAGE DEVELOPER Work Phone: [facility] 08-30-2024 12:31-0400 Heart rate 84 /min Llaitha Trujillo SENIOR DATASTAGE DEVELOPER Work Phone: [facility] 08-30-2024 12:31-0400 SaO2% (BldA) [Mass fraction] 94 % Lalitha Trujillo SENIOR DATASTAGE DEVELOPER Work Phone: [facility] 08-30-2024 12:31-0400 Systolic blood pressure 138 mm[Hg] Lalitha Trujillo SENIOR DATASTAGE DEVELOPER Work Phone: [facility] 08-02-2024 09:04-0400 Body mass index (BMI) [Ratio] 51.37 kg/m2 Pastora Jose F SENIOR DATASTAGE DEVELOPER Work Phone: [facility] 08-02-2024 09:04-0400 Body temperature 97.3 [degF] Pastora Mejíazpatrick SENIOR DATASTAGE DEVELOPER Work Phone: [facility] 08-02-2024 09:04-0400 Body weight 131.54 kg Pastora Mejíazpatrick SENIOR DATASTAGE DEVELOPER Work Phone: [facility] 08-02-2024 09:04-0400 Diastolic blood pressure 92 mm[Hg] Pastora Kohler SENIOR DATASTAGE DEVELOPER Work Phone: [facility] 08-02-2024 09:04-0400 Systolic blood pressure 164 mm[Hg] Pastora Velardepatrick SENIOR DATASTAGE DEVELOPER Work Phone: [facility] 06-14-2024 10:35-0400 Diastolic blood pressure 90 mm[Hg] Jennifer Cabrera MD Work Phone: [facility] 06-14-2024 10:35-0400 Systolic blood pressure 136 mm[Hg] Jennifer Cabrera MD Work Phone: [facility] 06-14-2024 09:51-0400 Body height 160 cm Jennifer Cabrera MD Work Phone: [facility] 06-14-2024 09:51-0400 Body mass index (BMI) [Ratio] 51.26 kg/m2 Jennifer Cabrera MD Work Phone: [facility] 06-14-2024 09:51-0400 Body weight 131.27 kg Jennifer Cabrera MD Work Phone: [facility] 06-14-2024 09:51-0400 Heart rate 91 /min Jennifer Cabrera MD Work Phone: [facility] 06-14-2024 09:51-0400 SaO2% (BldA) [Mass fraction] 94 % Jennifer Cabrera MD Work Phone: [facility] 06-10-2024 11:30-0400 Body mass index (BMI) [Ratio] 49.81 kg/m2 Lalitha Trujillo SENIOR DATASTAGE DEVELOPER Work Phone: [facility] 06-10-2024 11:30-0400 Body temperature 98.1 [degF] Lalitha Trujillo SENIOR DATASTAGE DEVELOPER Work Phone: [facility] 06-10-2024 11:30-0400 Body weight 127.55 kg Lalitha Trujillo SENIOR DATASTAGE DEVELOPER Work Phone: [facility] 06-10-2024 11:30-0400 Diastolic blood pressure 86 mm[Hg] Lalitha Trujillo SENIOR DATASTAGE DEVELOPER Work Phone: [facility] 06-10-2024 11:30-0400 Heart rate 85 /min Lalitha Trujillo SENIOR DATASTAGE DEVELOPER Work Phone: [facility] 06-10-2024 11:30-0400 SaO2% (BldA) [Mass fraction] 97 % Lalitha Trujillo SENIOR DATASTAGE DEVELOPER Work Phone: [facility] 06-10-2024 11:30-0400 Systolic blood pressure 128 mm[Hg] Lalitha Trujillo SENIOR DATASTAGE DEVELOPER Work Phone: [facility] 05-31-2024 14:38-0400 Body height 160 cm Lauren Torres PA Work Phone: [facility] 05-31-2024 14:38-0400 Body mass index (BMI) [Ratio] 51.19 kg/m2 Lauren Torres PA Work Phone: [facility] 05-31-2024 14:38-0400 Body weight 131.09 kg Lauren Torres PA Work Phone: [facility] 05-25-2024 09:57-0400 Body height 160.02 cm Pastora Kohler SENIOR DATASTAGE DEVELOPER-C Work Phone: [facility] 05-25-2024 09:57-0400 Body mass index (BMI) [Ratio] 51.1 kg/m2 Pastora Kohler SENIOR DATASTAGE DEVELOPER-C Work Phone: [facility] 05-25-2024 09:57-0400 Body weight 130.9 kg Pastora Kohler SENIOR DATASTAGE DEVELOPER-C Work Phone: [facility] 05-25-2024 09:57-0400 Diastolic blood pressure 93 mm[Hg] Pastora Kohler SENIOR DATASTAGE DEVELOPER-C Work Phone: [facility] 05-25-2024 09:57-0400 Heart rate 78 /min Pastora Kohler SENIOR DATASTAGE DEVELOPER-C Work Phone: [facility] 05-25-2024 09:57-0400 Respiratory rate 20 /min Pastora Kohler SENIOR DATASTAGE DEVELOPER-C Work Phone: [facility] 05-25-2024 09:57-0400 SaO2% (BldA) [Mass fraction] 98 % Pastora Ackermank SENIOR DATASTAGE DEVELOPER-C Work Phone: [facility] 05-25-2024 09:57-0400 Systolic blood pressure 144 mm[Hg] Pastora Ackermank SENIOR DATASTAGE DEVELOPER-C Work Phone: [facility] 05-23-2024 13:38-0400 Body height 157.5 cm Blane Pino DPM Work Phone: [facility] 05-23-2024 13:38-0400 Body mass index (BMI) [Ratio] 53.04 kg/m2 Blane Pino DPM Work Phone: [facility] 05-23-2024 13:38-0400 Body weight 131.54 kg Blane Pino DPM Work Phone: [facility] 04-12-2024 10:47-0500 Body mass index (BMI) [Ratio] 54.5 kg/m2 Alexandra Osorio SENIOR DATASTAGE DEVELOPER Work Phone: [facility] 04-12-2024 10:47-0500 Body temperature 96.21 [degF] Alexandra Osorio SENIOR DATASTAGE DEVELOPER Work Phone: [facility] 04-12-2024 10:47-0500 Body weight 135.17 kg Alexandra Osorio SENIOR DATASTAGE DEVELOPER Work Phone: [facility] 04-12-2024 10:47-0500 Diastolic blood pressure 90 mm[Hg] Alexandra Anthonyburg SENIOR DATASTAGE DEVELOPER Work Phone: [facility] 04-12-2024 10:47-0500 Heart rate 82 /min Alexandra Cruzburg SENIOR DATASTAGE DEVELOPER Work Phone: [facility] 04-12-2024 10:47-0500 SaO2% (BldA) [Mass fraction] 92 % Alexandra Cruzburg SENIOR DATASTAGE DEVELOPER Work Phone: [facility] 04-12-2024 10:47-0500 Systolic blood pressure 136 mm[Hg] Alexandra Sunshineenburg SENIOR DATASTAGE DEVELOPER Work Phone: [facility] 03-05-2024 08:53-0500 Body height 157.5 cm Alexandra Sunshineenburg SENIOR DATASTAGE DEVELOPER Work Phone: [facility] 03-05-2024 08:53-0500 Body mass index (BMI) [Ratio] 52.13 kg/m2 Alexandra Harickyenburg SENIOR DATASTAGE DEVELOPER Work Phone: [facility] 03-05-2024 08:53-0500 Body weight 129.28 kg Alexandra Harickyenburg SENIOR DATASTAGE DEVELOPER Work Phone: [facility] 03-05-2024 08:53-0500 Diastolic blood pressure 78 mm[Hg] Alexandra Harickyenburg SENIOR DATASTAGE DEVELOPER Work Phone: [facility] 03-05-2024 08:53-0500 Heart rate 94 /min Alexandra Sunshineenburg SENIOR DATASTAGE DEVELOPER Work Phone: [facility] 03-05-2024 08:53-0500 Respiratory rate 18 /min Alexandra Sunshineenburg SENIOR DATASTAGE DEVELOPER Work Phone: [facility] 03-05-2024 08:53-0500 SaO2% (BldA) [Mass fraction] 94 % Alexandra Sunshineenburg SENIOR DATASTAGE DEVELOPER Work Phone: [facility] 03-05-2024 08:53-0500 Systolic blood pressure 124 mm[Hg] Alexandra Harickyenburg SENIOR DATASTAGE DEVELOPER Work Phone: [facility] 02-29-2024 16:22-0500 Body height 157.5 cm Alexandra Sunshineenburg SENIOR DATASTAGE DEVELOPER Work Phone: [facility] 02-29-2024 16:22-0500 Body mass index (BMI) [Ratio] 52.49 kg/m2 Alexandra Harickyenburg SENIOR DATASTAGE DEVELOPER Work Phone: [facility] 02-29-2024 16:22-0500 Body weight 130.18 kg Alexandra Harickyenburg SENIOR DATASTAGE DEVELOPER Work Phone: [facility] 02-29-2024 16:22-0500 Diastolic blood pressure 82 mm[Hg] Alexandra Osorio SENIOR DATASTAGE DEVELOPER Work Phone: [facility] 02-29-2024 16:22-0500 Heart rate 78 /min Alexandra Osorio SENIOR DATASTAGE DEVELOPER Work Phone: [facility] 02-29-2024 16:22-0500 Respiratory rate 18 /min Alexandra Osorio SENIOR DATASTAGE DEVELOPER Work Phone: [facility] 02-29-2024 16:22-0500 SaO2% (BldA) [Mass fraction] 95 % Alexandra Osorio SENIOR DATASTAGE DEVELOPER Work Phone: [facility] 02-29-2024 16:22-0500 Systolic blood pressure 130 mm[Hg] Alexandra Osorio SENIOR DATASTAGE DEVELOPER Work Phone: [facility] 01-19-2024 11:23-0500 Body height 157.5 cm Pastora Ackermank SENIOR DATASTAGE DEVELOPER Work Phone: [facility] 01-19-2024 11:23-0500 Body mass index (BMI) [Ratio] 51.18 kg/m2 Pastora Velardepatrick SENIOR DATASTAGE DEVELOPER Work Phone: [facility] 01-19-2024 11:23-0500 Body temperature 97.81 [degF] Pastora Obrientrick SENIOR DATASTAGE DEVELOPER Work Phone: [facility] 01-19-2024 11:23-0500 Body weight 126.92 kg Pastora Velardepatrick SENIOR DATASTAGE DEVELOPER Work Phone: [facility] 01-19-2024 11:23-0500 Diastolic blood pressure 86 mm[Hg] Pastora Velardepatrick SENIOR DATASTAGE DEVELOPER Work Phone: [facility] 01-19-2024 11:23-0500 Heart rate 100 /min Pastora Obrientrick SENIOR DATASTAGE DEVELOPER Work Phone: [facility] 01-19-2024 11:23-0500 SaO2% (BldA) [Mass fraction] 97 % Pastora Velardepatrick SENIOR DATASTAGE DEVELOPER Work Phone: [facility] 01-19-2024 11:23-0500 Systolic blood pressure 150 mm[Hg] Pastora Kohler NP Work Phone: [facility] 12-30-2023 09:56-0500 Body mass index (BMI) [Ratio] 50.5 kg/m2 [facility] 12-30-2023 09:56-0500 Diastolic blood pressure 94 mm[Hg] [facility] 12-30-2023 09:56-0500 Heart rate 86 /min [facility] 12-30-2023 09:56-0500 Respiratory rate 18 /min [facility] 12-30-2023 09:56-0500 SaO2% (BldA) [Mass fraction] 100 % [facility] 12-30-2023 09:56-0500 Systolic blood pressure 136 mm[Hg] [facility] 12-30-2023 09:45-0500 Body height 160.02 cm [facility] 12-30-2023 09:45-0500 Body weight 129.35 kg [facility] 09-23-2023 14:28-0400 Body height 160.02 cm [facility] 09-23-2023 14:28-0400 Body mass index (BMI) [Ratio] 48.6 kg/m2 [facility] 09-23-2023 14:28-0400 Body weight 124.51 kg [facility] 09-23-2023 14:28-0400 Diastolic blood pressure 69 mm[Hg] [facility] 09-23-2023 14:28-0400 Heart rate 82 /min [facility] 09-23-2023 14:28-0400 Respiratory rate 20 /min [facility] 09-23-2023 14:28-0400 SaO2% (BldA) [Mass fraction] 95 % [facility] 09-23-2023 14:28-0400 Systolic blood pressure 104 mm[Hg] [facility] 06-30-2023 14:45-0400 Diastolic blood pressure 87 mm[Hg] Piotr Logan MD Work Phone: [facility] 06-30-2023 14:45-0400 Heart rate 78 /min Piotr Logan MD Work Phone: [facility] [employer] 06-30-2023 14:45-0400 Respiratory rate 16 /min Piotr Logan MD Work Phone: [facility] [employer] 06-30-2023 14:45-0400 SaO2% (BldA) [Mass fraction] 97 % Piotr Logan MD Work Phone: [facility] [employer] 06-30-2023 14:45-0400 Systolic blood pressure 133 mm[Hg] Piotr Logan MD Work Phone: [facility] [employer] 06-30-2023 12:35-0400 Body temperature 96.21 [degF] Piotr Logan MD Work Phone: [facility] [employer] 06-30-2023 11:05-0400 Body height 157.5 cm Piotr Logan MD Work Phone: [facility] [employer] 06-30-2023 11:05-0400 Body mass index (BMI) [Ratio] 52.61 kg/m2 Piotr Logan MD Work Phone: [facility] [employer] 06-30-2023 11:05-0400 Body weight 130.5 kg Piotr Logan MD Work Phone: [facility] [employer] 06-03-2023 10:04-0400 Body height 160 cm Edwin Moreno MD Work Phone: [facility] 06-03-2023 10:04-0400 Body mass index (BMI) [Ratio] 50.38 kg/m2 Edwin Moreno MD Work Phone: [facility] [employer] [facility] 06-03-2023 10:04-0400 Body temperature 97.59 [degF] Edwin Moreno MD Work Phone: [facility] [employer] [facility] 06-03-2023 10:04-0400 Body weight 129 kg Edwin Moreno MD Work Phone: [facility] 06-03-2023 10:04-0400 Diastolic blood pressure 98 mm[Hg] Edwin Moreno MD Work Phone: [facility] 06-03-2023 10:04-0400 Heart rate 90 /min Edwin Moreno MD Work Phone: [facility] 06-03-2023 10:04-0400 SaO2% (BldA) [Mass fraction] 97 % Edwin Moreno MD Work Phone: [facility] 06-03-2023 10:04-0400 Systolic blood pressure 154 mm[Hg] Edwin Moreno MD Work Phone: [facility] 05-11-2023 11:54-0400 Body height 160.02 cm [facility] 05-11-2023 11:54-0400 Body mass index (BMI) [Ratio] 51.5 kg/m2 [facility] 05-11-2023 11:54-0400 Body weight 132.05 kg [facility] 05-11-2023 11:54-0400 Diastolic blood pressure 83 mm[Hg] [facility] 05-11-2023 11:54-0400 Heart rate 74 /min [facility] 05-11-2023 11:54-0400 Respiratory rate 20 /min [facility] 05-11-2023 11:54-0400 SaO2% (BldA) [Mass fraction] 98 % [facility] 05-11-2023 11:54-0400 Systolic blood pressure 139 mm[Hg] [facility] 04-07-2023 09:09-0500 Body height 160.02 cm DO Kalie Rumschlag Work Phone: [facility] 04-07-2023 09:09-0500 Body mass index (BMI) [Ratio] 52.6 kg/m2 DO Kalie Rumschlag Work Phone: [facility] 04-07-2023 09:09-0500 Body weight 134.83 kg DO Kalie Rumschlag Work Phone: [facility] 04-07-2023 09:09-0500 Diastolic blood pressure 82 mm[Hg] DO Kalie Rumschlag Work Phone: [facility] 04-07-2023 09:09-0500 Heart rate 80 /min DO Kalie Rumschlag Work Phone: [facility] 04-07-2023 09:09-0500 Respiratory rate 20 /min DO Kalie Rumschlag Work Phone: [facility] 04-07-2023 09:09-0500 SaO2% (BldA) [Mass fraction] 93 % DO Kalie Rumschlag Work Phone: [facility] 04-07-2023 09:09-0500 Systolic blood pressure 130 mm[Hg] DO Kalie Rumschlag Work Phone: [facility] 02-03-2023 08:45-0500 Body height 160.02 cm Lili Scally Other [facility] 02-03-2023 08:45-0500 Body mass index (BMI) [Ratio] 52.61 kg/m2 Lili Scally Other [employer] Other 02-03-2023 08:45-0500 Body weight 134.72 kg Lili Scally Other [employer] Other 02-03-2023 08:45-0500 Body weight 134.71 kg DO Kalie Rumschlag Work Phone: [facility] 02-03-2023 08:45-0500 Diastolic blood pressure Lili Scally Other [employer] Other 02-03-2023 08:45-0500 Respiratory rate 20 /min Lili Scally Other [employer] Other 02-03-2023 08:45-0500 SaO2% (BldA) [Mass fraction] 94 % Lili Scally Other [employer] Other 02-03-2023 08:45-0500 Systolic blood pressure 144 mm[Hg] Lili Scally Other [employer] Other 11-26-2022 09:45-0400 Body height 160.02 cm Lili Scally Other [employer] Other 11-26-2022 09:45-0400 Body mass index (BMI) [Ratio] 51.37 kg/m2 Lili Scally Other [employer] Other 11-26-2022 09:45-0400 Body weight 131.54 kg Lili Scally Other [employer] Other 11-26-2022 09:45-0400 Diastolic blood pressure Lili Scally Other [employer] Other 11-26-2022 09:45-0400 Respiratory rate 20 /min Lili Scally Other [employer] Other 11-26-2022 09:45-0400 SaO2% (BldA) [Mass fraction] 96 % Lili Scally Other [employer] Other 11-26-2022 09:45-0400 Systolic blood pressure 124 mm[Hg] Lili Scally Other [employer] Other 11-25-2022 09:20-0400 Body height 160.02 cm Stoneyderik Turner Other [employer] Other 11-25-2022 09:20-0400 Body mass index (BMI) [Ratio] 52.07 kg/m2 Stoneyderik Turner Other [employer] Other 11-25-2022 09:20-0400 Body weight 133.36 kg Stoneyderik Turner Other [employer] Other 10-30-2022 11:18-0400 Diastolic blood pressure 81 mm[Hg] DO Judith Amanda Work Phone: [facility] 10-30-2022 11:18-0400 Heart rate 94 /min DO Judith Amanda Work Phone: [facility] 10-30-2022 11:18-0400 Respiratory rate 18 /min DO Judith Amanda Work Phone: [facility] 10-30-2022 11:18-0400 SaO2% (BldA) [Mass fraction] 96 % DO Judith Amanda Work Phone: [facility] 10-30-2022 11:18-0400 Systolic blood pressure 159 mm[Hg] DO Judith Amanda Work Phone: [facility] 10-30-2022 09:52-0400 Body height 160.02 cm DO Judith Amanda Work Phone: [facility] 10-30-2022 09:52-0400 Body weight 126.55 kg DO Judith Amanda Work Phone: [facility] 10-09-2022 10:40-0400 Body height 160.02 cm Martine Tobias Other [employer] [facility] [employer] Other 10-09-2022 10:40-0400 Body mass index (BMI) [Ratio] 52.07 kg/m2 Martine Tobias Other [employer] Other 10-09-2022 10:40-0400 Body weight 133.36 kg Martine [employer] Other [employer] Other 10-09-2022 10:40-0400 Diastolic blood pressure 88 mm[Hg] [employer] Other [employer] Other 10-09-2022 10:40-0400 Systolic blood pressure 154 mm[Hg] [email or web address] Other [employer] Other 10-03-2022 09:15-0400 Body height 160.02 cm Lili Scally Other [employer] Other 10-03-2022 09:15-0400 Body mass index (BMI) [Ratio] 52.09 kg/m2 Lili Scally Other [employer] Other 10-03-2022 09:15-0400 Body weight 133.4 kg Lili Scally Other [employer] Other 10-03-2022 09:15-0400 Diastolic blood pressure 88 mm[Hg] Lili Scally Other [employer] Other 10-03-2022 09:15-0400 Respiratory rate 20 /min Lili Scally Other [employer] Other 10-03-2022 09:15-0400 SaO2% (BldA) [Mass fraction] 65 % Lili Scally Other [employer] Other 10-03-2022 09:15-0400 Systolic blood pressure 143 mm[Hg] Lili Scally Other [employer] [facility] [employer] Other 09-19-2022 13:49-0400 Diastolic blood pressure 109 mm[Hg] DO Kalie Rumschlag Work Phone: [facility] 09-19-2022 13:49-0400 Heart rate 94 /min DO Kalie Rumschlag Work Phone: [facility] 09-19-2022 13:49-0400 Respiratory rate 20 /min DO Kalie Rumschlag Work Phone: [facility] 09-19-2022 13:49-0400 SaO2% (BldA) [Mass fraction] 96 % DO Kalie Rumschlag Work Phone: [facility] 09-19-2022 13:49-0400 Systolic blood pressure 209 mm[Hg] DO Kalie Rumschlag Work Phone: [facility] 09-19-2022 13:42-0400 Body height 162.56 cm DO Kalie Rumschlag Work Phone: [facility] 09-19-2022 13:42-0400 Body weight 124.73 kg DO Kalie Rumschlag Work Phone: [facility] 08-12-2022 09:40-0400 Body height 160.02 cm Martine Tobias Other [employer] Other 08-12-2022 09:40-0400 Body mass index (BMI) [Ratio] 50.62 kg/m2 Martine Tobias Other [employer] Other 08-12-2022 09:40-0400 Body weight 129.64 kg Martine Tobias Other [employer] Other 08-12-2022 09:40-0400 Diastolic blood pressure 86 mm[Hg] Martine Tobias Other [employer] Other 08-12-2022 09:40-0400 Systolic blood pressure 150 mm[Hg] Martine Tobias Other [employer] Other 08-01-2022 09:15-0400 Body height 160.02 cm Lili Scally Other [employer] Other 08-01-2022 09:15-0400 Body mass index (BMI) [Ratio] 50.62 kg/m2 Lili Scally Other [employer] Other 08-01-2022 09:15-0400 Body weight 129.64 kg Lili Scally Other [employer] Other 08-01-2022 09:15-0400 Diastolic blood pressure 84 mm[Hg] Lili Scally Other [employer] Other 08-01-2022 09:15-0400 Respiratory rate 18 /min Lili Scally Other [employer] Other 08-01-2022 09:15-0400 SaO2% (BldA) [Mass fraction] 95 % Lili Scally Other [employer] Other 08-01-2022 09:15-0400 Systolic blood pressure 130 mm[Hg] Lili Scally Other [employer] Other 06-06-2022 10:45-0400 Body height 160.02 cm Lili Scally Other [employer] Other 06-06-2022 10:45-0400 Body mass index (BMI) [Ratio] 50.43 kg/m2 Lili Scally Other [employer] Other 06-06-2022 10:45-0400 Body weight 129.14 kg Lili Scally Other [employer] Other 06-06-2022 10:45-0400 Diastolic blood pressure 76 mm[Hg] Lili Scally Other [employer] Other 06-06-2022 10:45-0400 Respiratory rate 18 /min Lili Scally Other [employer] Other 06-06-2022 10:45-0400 SaO2% (BldA) [Mass fraction] 96 % Lili Scally Other [employer] Other 06-06-2022 10:45-0400 Systolic blood pressure 131 mm[Hg] Lili Scally Other [employer] Other 03-06-2022 14:45-0500 Body height 160.02 cm Lili Scally Other [employer] Other 03-06-2022 14:45-0500 Body mass index (BMI) [Ratio] 46.81 kg/m2 Lili Scally Other [employer] Other 03-06-2022 14:45-0500 Body weight 119.89 kg Lili Scally Other [employer] Other 03-06-2022 14:45-0500 Diastolic blood pressure 72 mm[Hg] Lili Scally Other [employer] Other 03-06-2022 14:45-0500 Respiratory rate 18 /min Lili Scally Other [employer] Other 03-06-2022 14:45-0500 SaO2% (BldA) [Mass fraction] 96 % Lili Scally Other [employer] Other 03-06-2022 14:45-0500 Systolic blood pressure 112 mm[Hg] Lili Scally Other [employer] Other 10-28-2021 11:15-0400 Body height 160.02 cm Lili Scally Other [employer] Other 10-28-2021 11:15-0400 Body mass index (BMI) [Ratio] 45.49 kg/m2 Lili Scally Other [employer] Other 10-28-2021 11:15-0400 Body weight 116.48 kg Lili Scally Other [employer] Other 10-28-2021 11:15-0400 Diastolic blood pressure 83 mm[Hg] Lili Scally Other [employer] Other 10-28-2021 11:15-0400 Respiratory rate 18 /min Lili Scally Other [employer] Other 10-28-2021 11:15-0400 SaO2% (BldA) [Mass fraction] 97 % Lili Scally Other [employer] Other 10-28-2021 11:15-0400 Systolic blood pressure 133 mm[Hg] Lili Scally Other [employer] Other 07-04-2021 09:15-0400 Body height 160.02 cm Lili Scally Other [employer] Other 07-04-2021 09:15-0400 Body mass index (BMI) [Ratio] 45.79 kg/m2 Lili Scally Other [employer] Other 07-04-2021 09:15-0400 Body weight 117.26 kg Lili Scally Other [employer] Other 07-04-2021 09:15-0400 Diastolic blood pressure 83 mm[Hg] Lili Scally Other [employer] Other 07-04-2021 09:15-0400 Respiratory rate 18 /min Lili Scally Other [employer] Other 07-04-2021 09:15-0400 SaO2% (BldA) [Mass fraction] 96 % Lili Scally Other [employer] Other 07-04-2021 09:15-0400 Systolic blood pressure 125 mm[Hg] Lili Scally Other [employer] Other 11-21-2020 10:30-0400 Body height 160.02 cm Clifford Munoz Jr. Other [employer] Other 11-21-2020 10:30-0400 Body mass index (BMI) [Ratio] 46.97 kg/m2 Clifford Munoz Jr. Other [employer] Other 11-21-2020 10:30-0400 Body weight 120.29 kg Clifford Garciaian Kang Other [employer] Other 11-21-2020 10:30-0400 Diastolic blood pressure 76 mm[Hg] Clifford Garciaian Kang Other [employer] Other 11-21-2020 10:30-0400 Respiratory rate 18 /min Cliffordronnie Munoz Jr. Other [employer] Other 11-21-2020 10:30-0400 SaO2% (BldA) [Mass fraction] 97 % Cliffordronnie Munoz Jr. Other [employer] Other 11-21-2020 10:30-0400 Systolic blood pressure 123 mm[Hg] Clifford Garciaian Kang Other [employer] Other Encounters Encounter Date Encounter Type Care Provider Facility Start: 10-31-2024 End: 10-31-2024 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 procedure Shama Allen SENIOR DATASTAGE DEVELOPER-C -[facility] Work Phone: Start: 10-31-2024 End: 10-31-2024 ambulatory Pastora Kohler SENIOR DATASTAGE DEVELOPER-C Work Phone: [facility] Work Phone: Start: 09-23-2024 End: 09-23-2024 Office outpatient visit 15 minutes Lalitha Trujillo SENIOR DATASTAGE DEVELOPER Work Phone: [facility] Comment on above: Acute left-sided low back pain with left-sided sciatica (Primary Dx) Start: 09-23-2024 End: 09-23-2024 ambulatory LALITHA TRUJILLO Not Available Start: 09-23-2024 End: 09-23-2024 Bamboo flowsheet Lalitha Trujillo SENIOR DATASTAGE DEVELOPER Work Phone: [facility] Start: 09-23-2024 End: 09-23-2024 Bamboo flowsheet Lalitha Trujlilo SENIOR DATASTAGE DEVELOPER Work Phone: [facility] Start: 09-14-2024 End: 09-14-2024 ambulatory LALITHA TRUJILLO Not Available Start: 09-14-2024 End: 09-14-2024 Bamboo flowsheet Lalitha Trujillo SENIOR DATASTAGE DEVELOPER Work Phone: [facility] Start: 09-14-2024 End: 09-14-2024 Bamboo flowsheet Lalitha Trujillo SENIOR DATASTAGE DEVELOPER Work Phone: [facility] Start: 09-14-2024 End: 09-14-2024 Office outpatient visit 15 minutes Lalitha Trujillo SENIOR DATASTAGE DEVELOPER Work Phone: [facility] Comment on above: Left leg cellulitis (Primary Dx) Start: 09-07-2024 End: 09-07-2024 Emergency department patient visit [facility] Start: 08-30-2024 End: 08-30-2024 Bamboo flowsheet Lalitha Trujillo SENIOR DATASTAGE DEVELOPER Work Phone: [facility] Start: 08-30-2024 End: 08-30-2024 Bamboo flowsheet Lalitha Trujillo SENIOR DATASTAGE DEVELOPER Work Phone: [facility] Start: 08-30-2024 End: 08-30-2024 ambulatory LALITHA TRUJILLO Not Available Start: 08-30-2024 End: 08-30-2024 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 procedure Lalitha Trujillo SENIOR DATASTAGE DEVELOPER Work Phone: [facility] Comment on [...] major depressive disorder, in partial remission ; group home (current) use of insulin (HCC); Chronic kidney disease, stage 2 (mild); Chronic pain disorder Start: 08-30-2024 End: 08-30-2024 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 status Lalitha Hernandezclaudiafrankie SENIOR DATASTAGE DEVELOPER Work Phone: [facility] Work Phone: Start: 08-30-2024 Non-patient / Non-visit Kaya quinn RN -[facility] Work Phone: Start: 08-24-2024 End: 08-24-2024 Bamboo flowsheet Lauren HILL Work Phone: [facility] Start: 08-24-2024 End: 08-24-2024 Bamboo flowsheet Lauren HILL Work Phone: [facility] Start: 08-24-2024 End: 08-24-2024 Postop follow up visit related to original px Lauren HILL Work Phone: [facility] Comment on above: S/P arthroscopy of r ight shoulder (Primary Dx) Start: 08-24-2024 End: 08-24-2024 ambulatory LAUREN TORRES Not Available Start: 08-02-2024 End: 08-02-2024 Bamboo flowsheet Pastora Kohler SENIOR DATASTAGE DEVELOPER Work Phone: [facility] Start: 08-02-2024 End: 08-02-2024 Bamboo flowsheet Pastora Kohler SENIOR DATASTAGE DEVELOPER Work Phone: [facility] Start: 08-02-2024 End: 08-02-2024 Office outpatient visit 25 minutes Pastora Kohler SENIOR DATASTAGE DEVELOPER Work Phone: [facility] Comment on above: Acute pain of right shoulder (Primary Dx); Acute pain of right knee; Primary hypertension Start: 08-02-2024 End: 08-02-2024 ambulatory PASTORA KOHLER Not Available Start: 08-01-2024 End: 08-02-2024 Telephone encounter Lauren HILL Work Phone: [facility] Start: 07-20-2024 End: 07-20-2024 Bamboo flowsheet Lauren Bloom Brian PA Work Phone: [facility] Start: 07-20-2024 End: 07-20-2024 Bamboo flowsheet Lauren Bloom Brian PA Work Phone: [facility] Start: 07-20-2024 End: 07-20-2024 Postop follow up visit related to original px Lauren Bloom Brian PA Work Phone: [facility] Comment on above: S/P arthroscopy of r ight shoulder (Primary Dx) Start: 07-20-2024 End: 07-20-2024 ambulatory LAUREN TORRES Not Available Start: 07-01-2024 End: 07-01-2024 Bamboo flowsheet Lauren Merle Brian PA Work Phone: [facility] Start: 07-01-2024 End: 07-01-2024 Bamboo flowsheet Lauren J Brian PA Work Phone: [facility] Start: 07-01-2024 End: 07-01-2024 Postop follow up visit related to original px Lauren Bloom Brian PA Work Phone: [facility] Comment on above: S/P arthroscopy of r ight shoulder (Primary Dx) Start: 07-01-2024 End: 07-01-2024 ambulatory LAUREN TORRES Not Available Start: 06-21-2024 End: 06-21-2024 Bamboo flowsheet Lauren Torres PA Work Phone: [facility] Start: 06-21-2024 End: 06-21-2024 Bamboo flowsheet Lauren Torres PA Work Phone: [facility] Start: 06-21-2024 End: 06-21-2024 ambulatory LAUREN TORRES Not Available Start: 06-21-2024 End: 06-21-2024 Postop follow up visit related to original px Lauren Torres PA Work Phone: [facility] Comment on above: S/P arthroscopy of r ight shoulder (Primary Dx) Start: 06-17-2024 End: 06-17-2024 ambulatory [facility] Facility:[facility] Start: 06-16-2024 End: 06-17-2024 Daniele Kohler SENIOR DATASTAGE DEVELOPER Work Phone: [facility] Comment on [...] 06-10-2024 End: 06-10-2024 Bamboo flowsheet Lalitha Trujillo SENIOR DATASTAGE DEVELOPER Work Phone: [facility] Start: 06-10-2024 End: 06-10-2024 Bamboo flowsheet Lalitha Trujillo SENIOR DATASTAGE DEVELOPER Work Phone: [facility] Start: 06-10-2024 End: 06-10-2024 Office outpatient visit 15 minutes Lalitha Trujillo NP Work Phone: [facility] Comment on above: Acute laryngitis (Pr imary Dx) Start: 06-10-2024 End: 06-10-2024 ambulatory LALITHA TRUJILLO Not Available Start: 06-08-2024 End: 06-08-2024 ambulatory [facility] Start: 06-01-2024 End: 06-01-2024 ambulatory [facility] Facility:[facility] Start: 05-31-2024 End: 05-31-2024 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 procedure Lauren Torres PA Work Phone: [facility] Comment on above: Pre-op examination ( Primary Dx) Start: 05-31-2024 End: 05-31-2024 Preprocedural examination done Lauren HILL Work Phone: [facility] Work Phone: Start: 05-31-2024 End: 05-31-2024 ambulatory LAUREN TORRES Not Available Start: 05-31-2024 End: 05-31-2024 Bamboo flowsheet Lauren HILL Work Phone: [facility] Start: 05-31-2024 End: 05-31-2024 Bamboo flowsheet Lauren Torres PA Work Phone: [facility] Start: 05-25-2024 End: 05-25-2024 ambulatory Pastora Ackermank SENIOR DATASTAGE DEVELOPER-C Work Phone: [facility] Work Phone: Start: 05-25-2024 End: 05-25-2024 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 procedure Pastora Ackermank SENIOR DATASTAGE DEVELOPER-C Work Phone: [facility] Work Phone: Start: 05-25-2024 End: 05-25-2024 ambulatory Pastora Ackermank SENIOR DATASTAGE DEVELOPER-C Work Phone: [facility] Work Phone: Start: 05-25-2024 End: 05-25-2024 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 procedure Pastora Kohler SENIOR DATASTAGE DEVELOPER-C Work Phone: [facility] Work Phone: Start: 05-23-2024 End: 05-23-2024 Bamboo flowsheet Blane Pino DPM Work Phone: [facility] Start: 05-23-2024 End: 05-23-2024 Bamboo flowsheet Blane Pino DPM Work Phone: [facility] Start: 05-23-2024 End: 05-23-2024 Office outpatient visit 15 minutes Blane Pino DPM Work Phone: [facility] Comment on above: Bursitis of left isaac t (Primary Dx); Acquired keratoderma; Pain in left foot; Difficulty walking Start: 05-23-2024 End: 05-23-2024 ambulatory BLANE PINO Not Available Start: 04-26-2024 End: 04-26-2024 Office outpatient visit 40 minutes Jr. Rica Rodriguez DO Work Phone: [facility] Comment on above: Acute pain of right shoulder (Primary Dx); Arthritis of right acromioclavicular joint; Biceps tendinitis, right; Partial nontraumatic tear of rotator cuff, right Start: 04-26-2024 End: 04-26-2024 ambulatory RICA KANG Not Available Start: 04-18-2024 End: 04-18-2024 Telephone encounter Lalitha Trujillo SENIOR DATASTAGE DEVELOPER Work Phone: [facility] Start: 04-12-2024 End: 04-12-2024 Bamboo flowsheet Alexandra Osorio SENIOR DATASTAGE DEVELOPER Work Phone: [facility] Start: 04-12-2024 End: 04-12-2024 Bamboo flowsheet Alexandra Osorio SENIOR DATASTAGE DEVELOPER Work Phone: [facility] Start: 04-12-2024 End: 04-12-2024 Office outpatient visit 25 minutes Aelxandra Osorio SENIOR DATASTAGE DEVELOPER Work Phone: [facility] Comment on above: Type 2 diabetes livier itus with diabetic mononeuropathy, with long-term current use of insulin ([facility]) (Primary Dx); SOB (shortness of breath); Wheezing; Poorly-controlled hypertension ([facility]) Start: 04-12-2024 End: 04-12-2024 Orders Only Alexandra Scottvijaya SENIOR DATASTAGE DEVELOPER Work Phone: [facility] Comment on [...] of right shoulder Start: 03-16-2024 End: 03-16-2024 Lalitha Rodriguez DO Work Phone: [facility] Start: 03-16-2024 End: 03-16-2024 Lalitha Rodriguez DO Work Phone: [facility] Start: 03-16-2024 End: 03-16-2024 Office outpatient visit 25 minutes Jr. Rica Rodriguez DO Work Phone: [facility] Comment on above: Acute pain of right shoulder (Primary Dx); Arthritis of right acromioclavicular joint; Biceps tendinitis, right Start: 03-16-2024 End: 03-16-2024 ambulatory RICA KANG Not Available Start: 2024 End: 2024 Refill Judith G Amanda DO Work Phone: [facility] Comment on above: Mixed hyperlipidemia ([facility]) Start: 03-10-2024 End: 03-10-2024 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 procedure Pastora Kohler SENIOR DATASTAGE DEVELOPER-C Work Phone: [facility] [place] Work Phone: Start: 03-10-2024 End: 03-10-2024 ambulatory Pastora Kohler SENIOR DATASTAGE DEVELOPER-C Work Phone: [facility] Work Phone: Start: 03-05-2024 End: 03-05-2024 Bamboo flowsheet Alexandra Osorio SENIOR DATASTAGE DEVELOPER Work Phone: [facility] Start: 03-05-2024 End: 03-05-2024 Bamboo flowsheet Alexandra A Harickyenburg SENIOR DATASTAGE DEVELOPER Work Phone: [facility] Start: 03-05-2024 End: 03-05-2024 Telephone encounter Alexandra Osorio SENIOR DATASTAGE DEVELOPER Work Phone: [facility] Start: 03-05-2024 End: 03-05-2024 Office outpatient visit 15 minutes Alexandra Osorio SENIOR DATASTAGE DEVELOPER Work Phone: [facility] Comment on above: Left leg cellulitis (Primary Dx); Type 2 diabetes mellitus with diabetic mononeuropathy, with long-term current use of insulin ([facility]); Skin rash; Opioid dependence, uncomplicated ([facility]) Start: 03-05-2024 End: 03-05-2024 ambulatory ALEXANDRA A HARICKYENBURG Not Available Start: 03-02-2024 End: 03-02-2024 Telephone encounter Lauren Torres PA Work Phone: [facility] Comment on above: MRI Concerns Start: 03-01-2024 Non-patient / Non-visit Sid Kohler SENIOR DATASTAGE DEVELOPER-C Work Phone: [facility] Work Phone: Start: 02-29-2024 End: 02-29-2024 Office outpatient visit 25 minutes Alexandra Osorio SENIOR DATASTAGE DEVELOPER Work Phone: [facility] Comment on above: Type 2 diabetes livier itus with diabetic mononeuropathy, with long-term current use of insulin ([facility]) (Primary Dx); Left leg cellulitis; Morbid (severe) obesity due to excess calories ([facility]); Body mass index (BMI) 50.0-59.9, adult ([facility]); Type 2 diabetes mellitus with other skin complications ([facility]); Bipolar disorder, unspecified ([facility]) Start: 02-29-2024 End: 02-29-2024 ambulatory ALEXANDRA OSORIO Not Available Start: 02-29-2024 End: 02-29-2024 Bamboo flowsheet Alexandra Osorio SENIOR DATASTAGE DEVELOPER Work Phone: [facility] Start: 02-29-2024 End: 02-29-2024 Bamboo flowsheet Alexandra Osorio SENIOR DATASTAGE DEVELOPER Work Phone: [facility] Start: 01-26-2024 End: 01-26-2024 Bamboo flowsheet Lauren Torres PA Work Phone: [facility] Start: 01-26-2024 End: 01-26-2024 Bamboo flowsheet Lauren Torres PA Work Phone: [facility] Start: 01-26-2024 End: 01-26-2024 Office outpatient visit 15 minutes Lauren Torres PA Work Phone: [facility] Comment on above: Acute pain of right shoulder (Primary Dx); Arthritis of right acromioclavicular joint; Internal derangement of right shoulder; History of claustrophobia Start: 01-26-2024 End: 01-26-2024 ambulatory LAUREN TORRES Not Available Start: 01-19-2024 End: 01-19-2024 Bamboo flowsheet Pastora Kohler SENIOR DATASTAGE DEVELOPER Work Phone: [facility] Start: 01-19-2024 End: 01-19-2024 Bamboo flowsheet Pastora Kohler SENIOR DATASTAGE DEVELOPER Work Phone: [facility] Start: 01-19-2024 End: 01-19-2024 Office outpatient visit 15 minutes Pastora Kohler SENIOR DATASTAGE DEVELOPER Work Phone: [facility] Comment on above: Bronchitis (Primary Dx); 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); Wheezing Start: 01-19-2024 End: 01-19-2024 ambulatory PASTORA KOHLER Not Available Start: 01-11-2024 End: 01-13-2024 Refill Judith Patel DO Work Phone: [facility] Comment on above: Primary hypertension (CMS/HCC) Start: 01-05-2024 End: 01-05-2024 ambulatory AKANKSHA [facility] Start: 12-30-2023 End: 12-30-2023 ambulatory [facility] Work Phone: Start: 12-30-2023 End: 12-30-2023 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 procedure [facility] Work Phone: Start: 12-29-2023 End: [...] Not Available Start: 12-24-2023 Non-patient / Non-visit [facility] Work Phone: Start: 12-11-2023 End: 12-11-2023 Bamboo flowsheet Lauren Torres PA Work Phone: [facility] Start: 12-11-2023 End: 12-11-2023 Bamboo flowsheet Lauren Torres PA Work Phone: [facility] Start: 12-11-2023 End: 12-11-2023 Office outpatient visit 15 minutes Lauren Torres PA Work Phone: [facility] Comment on above: Acute pain of left k nee (Primary Dx); History of left knee replacement Start: 12-11-2023 End: 12-11-2023 ambulatory LAUREN TORRES Not Available Start: 12-06-2023 End: 12-07-2023 Refill Judith Patel DO Work Phone: [facility] Comment on above: Primary hypertension (CMS/HCC) Start: 11-20-2023 End: 11-20-2023 Bamboo flowsheet Lauren Torres PA Work Phone: [facility] Start: 11-20-2023 End: 11-20-2023 Bamboo flowsheet Lauren Torres PA Work Phone: [facility] Start: 11-20-2023 End: 11-20-2023 Office outpatient visit 25 minutes Lauren Torres PA Work Phone: [facility] Comment on above: Acute pain of left k nee (Primary Dx); History of left knee replacement; Left hip pain Start: 11-20-2023 End: 11-20-2023 ambulatory LAUREN TORRES Not Available Start: 09-23-2023 End: 09-23-2023 ambulatory [facility] Work Phone: Start: 09-23-2023 End: 09-23-2023 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 procedure [facility] Work Phone: Start: 08-04-2023 End: 08-04-2023 ambulatory PASTORA KOHLER [facility] Start: 07-28-2023 End: 07-29-2023 ambulatory PASTORA Nunes KOHLER [facility] Start: 07-16-2023 End: 07-20-2023 ambulatory PASTORA [facility] Start: 07-16-2023 Encounter for other [facility]cedural [facility] Start: 06-30-2023 End: 06-30-2023 [facility] Start: 06-30-2023 End: 06-30-2023 Subsequent hospital visit by physician Piotr Logan MD Work Phone: [facility] Cardiac Cath/IR Lab Comment on above: Abnormal stress test Start: 06-29-2023 End: 06-30-2023 ambulatory [facility] Start: 06-29-2023 Non-patient / Non-visit [facility] Work Phone: Start: 06-23-2023 End: 06-25-2023 [facility] Start: 06-23-2023 Encounter for preprocedural cardiovascular examination [facility] Start: 06-18-2023 End: 06-20-2023 ambulatory LOPEZ Rayo [facility] Start: 06-15-2023 End: 06-15-2023 [facility] Start: 06-04-2023 End: 06-04-2023 Telephone encounter Edwin Moreno MD Work Phone: [facility] Comment on above: Procedure (Out of ne twork) Start: 06-03-2023 End: 06-03-2023 ambulatory EDWIN MORENO [facility] Start: 06-03-2023 End: 06-03-2023 Office outpatient new 60 minutes Edwin Moreno MD Work Phone: [facility] Comment on above: Endometrial cancer ( [facility]) (Primary Dx); BMI 50.0-59.9, adult ([facility]) Start: 05-22-2023 End: 05-22-2023 ambulatory Shawn Webb Work Phone: [facility] Work Phone: Start: 05-22-2023 End: 05-22-2023 Departed Referred Shawn Webb Work Phone: [facility] Start: 05-11-2023 End: 05-11-2023 ambulatory [facility] Work Phone: Start: 05-11-2023 End: 05-11-2023 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 procedure [facility] Work Phone: Start: 04-22-2023 Non-patient / Non-visit [facility] [employer] Work Phone: Start: 04-21-2023 End: 04-21-2023 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 procedure [facility] Work Phone: Start: 04-07-2023 End: 04-07-2023 ambulatory DO Kalie Rumschlag Work Phone: [facility] Work Phone: Start: 04-07-2023 End: 04-07-2023 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 procedure DO Kalie Rumschlag Work Phone: [facility] Work Phone: Start: 03-04-2023 End: 03-04-2023 ambulatory Lili Burgos Other [facility] Other Start: 03-04-2023 Telephone encounter Lili dalt[facility] Start: 02-03-2023 (DM) Diabetes Lili quach [facility] Start: 02-03-2023 End: 02-03-2023 ambulatory DO Kalie Rumschlag Work Phone: [employer] Other Start: 02-03-2023 End: 02-03-2023 Discharged Recurring DO Kalie Rumschlag Work Phone: [facility] Work Phone: Start: 02-03-2023 End: 02-03-2023 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 procedure DO Kalie Rumschlag Work Phone: [facility] Work Phone: Start: 01-26-2023 End: 01-26-2023 ambulatory Lilihebert Burgos Other [facility] [employer] Other Start: 01-26-2023 Telephone encounter Lili matthew [facility] Start: 01-02-2023 End: 01-02-2023 ambulatory Lili Scally Other [facility] [employer] Other Start: 01-02-2023 Telephone encounter Lili matthew [facility] Start: 11-26-2022 (DM) Diabetes Lili Aubrey Sequeira ds [facility] Start: 11-26-2022 End: 11-26-2022 ambulatory Lili Airamly Other [facility] [employer] Other Start: 11-25-2022 End: 11-25-2022 ambulatory Stoney Turner Other [facility] Other Start: 11-25-2022 Office outpatient ne w 30 minutes Stoney Turner [facility] Start: 11-12-2022 End: 11-12-2022 ambulatory Lili Scally Other [facility] [employer] Other Start: 11-12-2022 Telephone encounter Lili matthew [facility] Start: 10-30-2022 End: 10-30-2022 Admission to same day surgery center DO Judith Amanda Work Phone: [facility] Work Phone: Start: 10-30-2022 End: 10-30-2022 ambulatory DO Judith G Amanda Work Phone: [facility] Work Phone: Start: 10-09-2022 End: 10-09-2022 ambulatory Martine Tobias Other [facility] Other Start: 10-09-2022 Office outpatient vi sit 25 minutes Martine Tobias [facility] Start: 10-07-2022 End: 10-07-2022 ambulatory DO Judith G Amanda Work Phone: [facility] Work Phone: Start: 10-07-2022 End: 10-07-2022 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 procedure DO Judith Amanda Work Phone: [facility] Work Phone: Start: 10-03-2022 (DM) Diabetes Lili Sequeira [facility] Start: 10-03-2022 End: 10-03-2022 ambulatory Lili Burgos Other [facility] Other Start: 10-03-2022 Registered Recurring DO Judith Amanda Work Phone: [facility] Work Phone: Start: 09-26-2022 End: 09-26-2022 ambulatory Lili Burgos Other [facility] Other Start: 09-26-2022 Telephone encounter Lili matthew [facility] Start: 09-19-2022 End: 09-19-2022 ambulatory DO Kalie Rumschlag Work Phone: [facility] Work Phone: Start: 09-19-2022 End: 09-19-2022 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 procedure DO Kalie Rumschlag Work Phone: [facility] [place] Work Phone: Start: 08-18-2022 End: 08-18-2022 ambulatory DO Kalie Rumschlag Work Phone: [facility] Work Phone: Start: 08-18-2022 End: 08-18-2022 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 procedure DO Kalie Rumschlag Work Phone: [facility] [place] Work Phone: Start: 08-12-2022 End: 08-12-2022 ambulatory Martine Tobias Other [facility] Other Start: 08-12-2022 Office outpatient ne w 45 minutes Martine Tobias [facility] Start: 08-12-2022 Telephone encounter Lili matthew [facility] Start: 08-05-2022 End: 08-05-2022 ambulatory Lili Aubrey Other [place] [employer] Other Start: 08-05-2022 Telephone encounter Lili matthew [facility] Start: 08-01-2022 (DM) Diabetes Lililillian Sequeira [facility] Start: 08-01-2022 End: 08-01-2022 ambulatory Lili Airamly Other [facility] Other Start: 08-01-2022 Registered Recurring DO Kalie Rumschlag Work Phone: [facility] Work Phone: Start: 07-22-2022 End: 07-22-2022 ambulatory Lili Aubrey Other [facility] Other Start: 07-22-2022 Telephone encounter Lili matthew [facility] Start: 07-09-2022 End: 07-09-2022 ambulatory Lili Burgos Other [facility] [employer] [facility] Other Start: 07-09-2022 Telephone encounter Lili matthew [facility] Start: 07-01-2022 End: 07-02-2022 [facility] Facility:H1 Start: 06-20-2022 End: 06-21-2022 [facility] Facility: Start: 06-16-2022 End: 06-16-2022 ambulatory Lili Burgos Other [facility] Other Start: 06-16-2022 Telephone encounter Lili matthew [facility] Start: 06-06-2022 (DM) Diabetes Lili Aubrey Fire[facility] Start: 06-06-2022 End: 06-06-2022 ambulatory Lili Burgos Other [facility] Other Start: 06-03-2022 End: 06-03-2022 ambulatory NARENDRANATH LAKSHMIPATHY . Facility: Start: 05-15-2022 End: 05-16-2022 [facility] Facility:H1 Start: 05-13-2022 End: 05-13-2022 ambulatory Lili Burgos Other [facility] Other Start: 05-13-2022 Telephone encounter Lili matthew [facility] Start: 04-14-2022 End: 04-14-2022 ambulatory Lili Burgos Other [facility] Other Start: 04-14-2022 Telephone encounter Lili matthew [facility] Start: 04-03-2022 End: 04-03-2022 ambulatory Lili Scally Other [facility] Other Start: 04-03-2022 Telephone encounter Lili Airamly [place] [facility] Start: 03-24-2022 End: 03-24-2022 ambulatory Lili Scally Other [facility] Other Start: 03-24-2022 Telephone encounter Lili Scally [place] [facility] Start: 03-21-2022 End: 03-21-2022 ambulatory Lili Scally Other [facility] Other Start: 03-21-2022 Telephone encounter Lili Scally F k[facility] Start: 03-06-2022 (DM) Diabetes Lili Scally [facility] Start: 03-06-2022 End: 03-07-2022 [facility] Other Start: 02-13-2022 End: 02-14-2022 [facility] Facility:H1 Start: 12-31-2021 End: 12-31-2021 ambulatory Lili Scally Other [facility] Other Start: 12-31-2021 Telephone encounter Lili Airamly [place] [facility] Start: 12-11-2021 [facility] Facility:H1 Start: 11-20-2021 End: 11-20-2021 ambulatory Lili Scally Other [facility] Other Start: 11-20-2021 Telephone encounter Lili Scally F [facility] Start: 11-06-2021 End: 11-07-2021 [facility] Facility:H1 Start: 10-28-2021 (DM) Diabetes Lili Scally [facility] [facility] Start: 10-28-2021 End: 10-28-2021 ambulatory Lili Scally Other [facility] Other Start: 09-20-2021 End: 09-20-2021 ambulatory Lili Scally Other [facility] Other Start: 09-20-2021 Telephone encounter Lili Airamly [place] [facility] Start: 09-12-2021 End: 09-12-2021 ambulatory Lili Scally Other [facility] Other Start: 09-12-2021 Telephone encounter Lili Airamly [place] [facility] Start: 08-01-2021 End: 08-02-2021 ambulatory [facility]: Start: 07-22-2021 End: 07-22-2021 ambulatory Lili Airamly Other [facility] Other Start: 07-22-2021 Telephone encounter Lili Aubrey [facility] Start: 07-08-2021 End: 07-08-2021 ambulatory Lili Airamly Other [facility] Other Start: 07-08-2021 Telephone encounter Lili Aubrey [place] [facility] Start: 07-04-2021 (DM) Diabetes Lili Scally [facility] [facility] Start: 07-04-2021 End: 07-04-2021 ambulatory Lili Scally Other [facility] Other Start: 06-20-2021 End: 06-20-2021 ambulatory Clifford Munoz Other [facility] Other Start: 06-20-2021 Telephone encounter Clifford Munoz Ace mat[facility] Start: 04-19-2021 End: 04-19-2021 ambulatory Clifford Munoz Other [facility] Other Start: 04-19-2021 Telephone encounter Clifford Tammy matthew [facility] Start: 03-28-2021 End: 03-28-2021 ambulatory Clifford Munoz Other [facility] Other Start: 03-28-2021 Telephone encounter Clifford Tammy mat[facility] Start: 01-29-2021 End: 01-29-2021 ambulatory Clifford Garciadiff Ghulam Other [facility] Other Start: 01-29-2021 Telephone encounter Clifford Christian [facility] Start: 11-27-2020 Telephone encounter Clifford [facility] Start: 11-21-2020 (DM) Diabetes Clifford Munoz Jr. [facility] Start: 09-25-2016 End: 09-26-2016 Ambulatory QUE MITCHELLADRY Facility:[facility] Start: 09-20-2016 End: 09-20-2016 Emergency department patient visit LAUREN CARDENAS Facility:[facility] Start: 09-08-2016 End: 09-15-2016 Evaluation and management of inpatient QUE MITCHELLADRY Facility:[facility] Procedures Date Procedure Procedure Detail Performing Clinician Start: 10-31-2024 XR pre/post mri xray Pastora Kohler SENIOR DATASTAGE DEVELOPER-C Work Phone: Start: 10-31-2024 MR lumbar spine wo con Pastora conti SENIOR DATASTAGE DEVELOPER-C Work Phone: Start: 03-10-2024 XR pre/post mri xray Pastora Kohler SENIOR DATASTAGE DEVELOPER-C Work Phone: Start: 03-10-2024 MRI of right shoulder Pastora das SENIOR DATASTAGE DEVELOPER-C Work Phone: Start: 12-29-2023 Arthrocentesis aspir&/inj interm jt/burs w/o us Lauren HILL Work Phone: Start: 12-29-2023 Radex shoulder complete minimum 2 views Lauren HILL Work Phone: Start: 09-15-2023 Mammography Lauren HILL Work Phone: Start: 07-28-2023 H/O: section History of 3 sections Alexandra Cruzronda TERRELL Work Phone: Start: 06-15-2023 Microscopic observation [Identifier] in Cervix by Cyto stain Piotr Logan MD Work Phone: Start: 10-30-2022 Lumbosacral myelography DO [employer] Work Phone: Start: 10-07-2022 Dual energy X-ray [...] 06-14-2028 Screening for malignant neoplasm of cervix [facility] [employer] Start: 06-14-2026 Screening for malignant neoplasm of cervix [facility] Start: 08-30-2025 Medicare Annual Wellness (AWV) Medicare Annual Wellness (AWV) [facility] Start: 05-04-2025 Glaucoma screening Diabetes: Retinopathy Screening [facility] Start: 03-01-2025 Urine screening for protein Diabetes: Urine Protein Screening [facility] Start: 11-30-2024 Hemoglobin A1c measurement Diabetes: Hemoglobin A1C [facility] Start: 10-17-2024 Influenza vaccination [facility] Start: 09-26-2024 End: 09-26-2024 Professional / ancillary services management 09/26/2024 9:30 AM EDT Ancillary Procedure [facility] [address] [place] [address] [facility] Start: 09-23-2024 End: 09-23-2024 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 procedure 09/23/2024 3:30 PM EDT Office Visit [facility] [address] [place] [address] Lalitha Trujillo NP [address] [place] [address] Arrived [facility] Comment on above: Arrived Start: 09-23-2024 End: 09-23-2025 XR Lumbar spine Views W flexion and W extension XR lumbar spine 4+ views w flexion extension Imaging Routine Acute left-sided low back pain with left-sided sciatica Expected: 09/23/2024, Expires: 09/23/2025 [facility] Work Phone: Comment on above: Expected: 09/23/2024, Expires: Start: 09-14-2024 Screening for malignant neoplasm of breast Mammogram [facility] Start: 08-30-2024 End: 08-30-2025 CBC W Auto Differential panel - Blood CBC and differential Lab Routine Encounter for wellness examination Expected: 08/30/2024 (Approximate), Expires: 08/30/2025 [facility] Comment on above: Expected: 08/30/2024 (Approximate), Expi res: 08/30/2025 Start: 08-30-2024 End: 08-30-2025 Comprehensive metabolic 2000 panel - Serum or Plasma Comprehensive metabolic panel Lab Routine Encounter for wellness examination Primary hypertension Type 2 diabetes mellitus with hyperglycemia, with long-term current use of insulin (HCC) Morbid obesity ([facility]) Expected: 08/30/2024 (Approximate), Expires: 08/30/2025 [facility] Work Phone: Comment on above: Expected: 08/30/2024 (Approximate), Expi res: 08/30/2025 Start: 08-30-2024 End: 10-31-2025 DBT Breast - bilateral screening Bilateral screening mammogram with tomosynthesis Imaging Routine Encounter for screening mammogram for malignant neoplasm of breast Expected: 08/30/2024, Expires: 10/31/2025 [facility] Comment on above: Expected: 08/30/2024, Expires: Start: 08-30-2024 End: 08-30-2025 Hemoglobin A1c/Hemoglobin.total in Blood Hemoglobin A1c Lab Routine Encounter for wellness examination Type 2 diabetes mellitus with hyperglycemia, with long-term current use of insulin (HCC) Morbid obesity ([facility]-HCC) Expected: 08/30/2024 (Approximate), Expires: 08/30/2025 [facility] Comment on above: Expected: 08/30/2024 (Approximate), Expi res: 08/30/2025 Start: 08-30-2024 End: 08-30-2025 Lipid 1996 panel - Serum or Plasma Lipid panel Lab Routine Encounter for wellness examination Primary hypertension Type 2 diabetes mellitus with hyperglycemia, with long-term current use of insulin (HCC) Morbid obesity ([facility]-HCC) Mixed hyperlipidemia Expected: 08/30/2024 (Approximate), Expires: 08/30/2025 [facility] Comment on above: Expected: 08/30/2024 (Approximate), Expi res: 08/30/2025 Start: 08-30-2024 End: 08-30-2025 TSH W/REFLEX TO FT4 TSH W/REFLEX TO FT4 Lab Routine Encounter for wellness examination Morbid obesity ([facility]-HCC) Expected: 08/30/2024 (Approximate), Expires: 08/30/2025 [facility] Comment on above: Expected: 08/30/2024 (Approximate), Expi res: 08/30/2025 Start: 08-24-2024 Hemoglobin A1c measurement Diabetes: Hemoglobin A1C [facility] Start: 08-24-2024 End: 08-24-2024 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 procedure [facility] Comment on above: S/P arthroscopy of right shoulder (Prima ry Dx) Start: 08-09-2024 End: 08-09-2024 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 procedure 08/09/2024 10:30 AM EDT Office Visit [facility] [address] [place] [address] Pastora Kohler NP [address] [place] [address] [facility] Start: 08-02-2024 End: 08-02-2025 [...] 08/02/2024 9:30 AM EDT Office Visit [facility] [address] [place] [phone] Pastora Kohler NP [address] [place] [address] Arrived [facility] Comment on above: Arrived Start: 07-20-2024 End: 07-20-2024 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 procedure [facility] Comment on above: S/P arthroscopy of right shoulder (Prima ry Dx) Start: 07-01-2024 End: 07-01-2024 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 procedure [facility] Comment on above: S/P arthroscopy of right shoulder (Prima ry Dx) Start: 06-28-2024 Hemoglobin A1c measurement A1C test (Diabetic or Prediabetic) [facility] Start: 06-28-2024 Lipid panel Lipids [facility] Start: 06-14-2024 End: 06-14-2026 Echocardiogram 2D complete Echocardiogram 2D complete Echocardiography Routine Nonrheumatic aortic valve stenosis Expected: 06/14/2024 (Approximate), Expires: 06/14/2026 [facility] Work Phone: Comment on above: Expected: 06/14/2024 (Approximate), Expi res: 06/14/2026 Start: 06-14-2024 End: 06-14-2024 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 procedure 06/14/2024 10:00 AM EDT Office Visit [facility] [address] [facility] [phone] Jennifer Cabrera MD [address] [place] [address] Arrived [facility] Comment on above: Arrived Start: 06-10-2024 End: 06-10-2024 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 procedure 06/10/2024 11:30 AM EDT Office Visit [facility] [address] [facility] [place] [phone] Lalitha Trujillo NP [address] [place] [facility] [place] [address] Arrived [facility] Comment on above: Arrived Start: 06-09-2024 End: 06-09-2024 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 procedure 06/09/2024 2:45 PM EDT Procedure Visit [facility] [address] [place] [phone] Blane Pino DPM [address] [place] [address] [facility] Start: 06-02-2024 Adult BMI Screening Adult BMI Screening [facility] Start: 06-02-2024 Tobacco Screening Tobacco Screening [facility] Start: 05-31-2024 End: 05-31-2024 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 procedure [facility] Comment on above: Pre-op examination (Primary Dx) Start: 05-23-2024 End: 05-23-2024 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 procedure 05/23/2024 1:30 PM EDT Office Visit [facility] [address] [place] [phone] Blane Pino, DPM [address] [place], [place] [phone] Arrived [facility] Comment on above: Arrived Start: 05-13-2024 Medicare Annual Wellness (AWV) Medicare Annual Wellness (AWV) [facility] Start: 05-04-2024 Hemoglobin A1c measurement Diabetes: Hemoglobin A1C [facility] Start: 04-26-2024 End: 04-26-2024 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 procedure 04/26/2024 8:45 AM EDT Office Visit [facility] [address] [facility] [place] [phone] Jr. Rica Rodriguez, DO [address] [address] [facility] Start: 04-21-2024 Urine screening for protein Diabetes: Urine Protein Screening [facility] Start: 04-12-2024 End: 04-12-2025 XR Chest 2 Views [facility] Work Phone: Comment on above: Expected: 04/12/2024, Expires: Start: 04-12-2024 End: 04-12-2024 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 procedure 04/12/2024 11:00 AM EST Office Visit [facility] [address] [place] [phone] Alexandra Osorio SENIOR DATASTAGE DEVELOPER [address] [place] [address] Arrived [facility] Comment on above: Arrived Start: 03-23-2024 End: 03-23-2024 ambulatory 03/23/2024 9:00 AM EST Evaluation [facility] [address] [place] [phone] Sean Tineo, PT [address] [place], [place] [phone] Biceps tendinitis, right [facility] Comment on above: Biceps tendinitis, right Start: 03-18-2024 End: 03-18-2024 ambulatory 03/18/2024 2:00 PM EST Evaluation [facility] [address] [place] [phone] Sean Tineo, PT [address] [facility] [place] [address] [facility] Start: 03-16-2024 End: 03-16-2024 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 procedure [facility] Comment on above: Acute pain of right shoulder (Primary Dx ); Arthritis of right acromioclavicular joint; Biceps tendinitis, right Start: 03-05-2024 End: 03-05-2024 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 procedure 03/05/2024 9:00 AM EST Office Visit [facility] [address] [facility] [place] [phone] Alexandra Osorio SENIOR DATASTAGE DEVELOPER [address] [facility] [place] [address] Arrived [facility] Comment on above: Arrived Start: 03-03-2024 End: 03-03-2024 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 procedure 03/03/2024 9:30 AM EST Office Visit [facility] [address] [facility] [place] [phone] Alexandra Osorio SENIOR DATASTAGE DEVELOPER [address] [facility] [place] [address] [facility] Start: 03-02-2024 End: 03-02-2024 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 procedure 03/02/2024 9:30 AM EST Office Visit [facility] [address] [place] [phone] Jr. Rica Rodriguez, DO [address] [place] [address] [facility] Start: 02-29-2024 End: 02-29-2024 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 procedure 02/29/2024 4:30 PM EST Office Visit [facility] [address] [place] [phone] Alexandra Osorio NP [address] [place] [address] Arrived [facility] Comment on above: Arrived Start: 02-23-2024 End: 02-23-2024 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 procedure 02/23/2024 10:00 AM EST Office Visit [facility] [address] [place] [phone] Lauren Torres PA [address] [facility] [address] [place] [address] [facility] Start: 01-26-2024 End: 01-26-2024 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 procedure 01/26/2024 10:15 AM EST Office Visit [facility] [address] [place] [phone] Lauren Torres PA [address] [facility] [address] [place] [address] Acute pain of right shoulder (Primary Dx); Arthritis of right acromioclavicular joint [facility] Comment on above: Acute pain of right shoulder (Primary Dx ); Arthritis of right acromioclavicular joint Start: 01-22-2024 End: 01-22-2024 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 procedure 01/22/2024 10:15 AM EST Office Visit [facility] [address] [place] [phone] Lauren Torres PA [address] [facility] [address] [place] [address] [facility] Start: 01-19-2024 End: 01-19-2024 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 procedure 01/19/2024 11:30 AM EST Office Visit [facility] [address] [place] [phone] Pastora Kohler NP [address] [place], [place] [phone] Arrived [facility] Comment on above: Arrived Start: 12-11-2023 End: 12-11-2023 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 procedure [facility] Comment on above: Acute pain of left knee (Primary Dx) Start: 11-20-2023 End: 11-20-2023 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 procedure 11/20/2023 9:00 AM EDT Office Visit [facility] [address] [place] [phone] Lauren Torres PA [address] [address] Acute pain of left knee (Primary Dx) [facility] Comment on above: Acute pain of left knee (Primary Dx) Start: 10-18-2023 Influenza vaccination [facility] Start: 10-16-2023 Hemoglobin A1c measurement Diabetes: Hemoglobin A1C [facility] Start: 06-30-2023 End: 06-30-2023 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 procedure 06/30/2023 8:30 AM EDT Office Visit Liz Say [facility] - Medical Oncology [address] [place] [phone] Nishi High PA [address] [facility] [address] [place] [address] Liz Deal [facility] - Medical Oncology Start: 06-15-2023 End: 06-15-2023 Admission to same day surgery center 06/15/2023 2:00 PM EDT - 06/15/2023 4:30 PM EDT Surgery [facility] - Surgery [address] [place] [phone] Edwin Moreno MD [address] [facility] [place] [address] DAVINCI HYSTERECTOMY SALPINGO OOPHORECTOMY [facility] Surgery Comment on above: DAVINCI HYSTERECTOMY SALPINGO OOPHORECTO MY Start: 06-15-2023 End: 06-15-2023 DAVINCI DISSECTION LYMPH NODE PELVIC SENTINEL DAVINCI DISSECTION LYMPH NODE PELVIC SENTINEL ENDOMETRIAL CANCER 06/15/2023 2:00 PM EDT [facility] Start: 06-15-2023 End: 06-15-2023 DAVINCI HYSTERECTOMY SALPINGO OOPHORECTOMY DAVINCI HYSTERECTOMY SALPINGO OOPHORECTOMY ENDOMETRIAL CANCER 06/15/2023 2:00 PM EDT [facility] Start: 06-15-2023 Subsequent hospital visit by physician 06/15/2023 2:00 PM EDT Hospital Encounter [facility] Surgery [facility] [place] [phone] Edwin Moreno MD [address] [place] [address], [address] [place] [address] [facility] Start: 06-05-2023 End: 06-05-2023 Admission to establishment 06/05/2023 2:45 PM EDT [facility] [address] [phone] [facility]-Ad[facility] On [facility] Start: 02-16-2023 Annual Wellness Visit (Medicare Advantage) Annual Wellness Visit (Medicare Advantage) [facility] Start: 01-16-2023 COVID-19 Vaccine ( season) COVID-19 Vaccine ( season) [facility] Start: 10-30-2022 [facility] Start: 10-30-2022 Computerized axial tomography of lumbar spine with contrast [facility] Start: 02-14-2021 Screening for malignant neoplasm of breast Breast cancer screen [facility] Start: 2020 Respiratory Syncytial Virus (RSV) or age 60 yrs+ (1 - 1-dose 60+ series) Respiratory Syncytial Virus (RSV) or age 60 yrs+ (1 - 1-dose 60+ series) [facility] Start: 2010 Administration of varicella zoster vaccine Zoster (Shingles) Vaccine (1 of 2) [facility] Start: 2010 Shingles vaccine (1 of 2) Shingles vaccine (1 of 2) [facility] [employer] Contents First Start: 2005 Screening for malignant neoplasm of colon [facility] Contents First Start: 1981 Screening for malignant neoplasm of cervix Pap Smear [facility] Start: 1979 Administration of varicella zoster vaccine Zoster (Shingles) Vaccine (1 of 2) [facility] Start: 1979 DTaP,Tdap and Td Vaccines (1 - Tdap) DTaP,Tdap and Td Vaccines (1 - Tdap) [facility] Start: 1979 DTaP/Tdap/Td vaccine (1 - Tdap) DTaP/Tdap/Td vaccine (1 - Tdap) [facility] Contents First Start: 1979 Urine screening for protein Diabetes: Urine Protein Screening [facility] Start: 1978 Adult BMI Follow Up Plan Adult BMI Follow Up Plan [facility] Start: 1978 GFR test (Diabetes, CKD 3-4, OR last GFR 15-59) GFR test (Diabetes, CKD 3-4, OR last GFR 15-59) [facility] Start: 1978 Glaucoma screening Diabetic retinal exam [facility] Contents First Start: 1978 Hepatitis C screening Hepatitis C screen [facility] Contents First Start: 1978 Urine screening for protein Diabetic Alb to Cr ratio (uACR) test [facility] [employer] Start: 1975 HIV screening HIV screen [facility] [employer] Start: 1972 Depression Monitoring Depression Monitoring [facility] [employer] Start: 1972 Depression Screening Depression Screening [facility] Start: 1970 Diabetic foot examination Diabetic foot exam [facility] Contents First Start: 1966 Pneumococcal 0-64 years Vaccine (1 of 2 - PCV) Pneumococcal 0-64 years Vaccine (1 of 2 - PCV) [facility] [employer] Start: 1960 Medicare Annual Wellness (AWV) Medicare Annual Wellness (AWV) [facility] Start: 1960 Screening for malignant neoplasm of colon [facility] Comprehensive metabo lic 2000 panel - Serum or Plasma [facility] Oxygen therapy [[facility] mum Data Set] Initiate Oxygen Therapy Protocol Respiratory Care Routine As Needed until discontinued starting 06/30/2023 [facility] Comment on above: As Needed until discontinued starting Oxygen therapy [Mini mum Data Set] Initiate Oxygen Therapy Protocol Respiratory Care Routine As Needed until discontinued starting 06/30/2023 [facility] Comment on above: As Needed until discontinued starting Patient Education [facility] Myelography F [facility] Work Phone: End: 06-26-2023 Percutaneous coronary intervention [facility] Work Phone: Comment on above: One Time for 1 Occurrences starting 06/16 until 06/26/2023 XR Hip - left 3 Views XR hip lef t 2 or 3 views Imaging Routine Left hip pain 11/20/2023 9:24 AM EDT [facility] XR Knee - left 1 or 2 Views XR knee 1 or 2 views left Imaging Routine Acute pain of left knee 11/20/2023 9:05 AM EDT [facility] Work Phone: [facility] Immunizations Immunization Date Immunization Notes Care Provider [facility] 08-30-2024 Pneumococcal Conjuga te PCV 20 Lalitha Trujillo NP Work Phone: [facility] 11-21-2022 influenza virus vaccine, unspecified formulation Edwin Moreno MD Work Phone: [facility] 11-21-2022 influenza, injectabl e, quadrivalent, preservative free Lauren HILL Work Phone: [facility] 11-21-2022 SARS-COV-2 (COVID-19 ) vaccine, mRNA, spike protein, LNP, PF, 50 mcg/0.5 mL Lauren HILL Work Phone: [facility] 02-26-2022 influenza virus vaccine, unspecified formulation Piotr Logan MD Work Phone: [facility] 02-26-2022 influenza, injectabl e, quadrivalent, preservative free Lauren HILL Work Phone: [facility] 06-12-2020 COVID-19 Vaccine Moderna - Documentation Purposes Only Clifford Munoz Jr. Other [facility] 05-15-2020 COVID-19 Vaccine Moderna - Documentation Purposes Only Clifford Munoz Jr. Other [facility] 12-09-2016 influenza virus vaccine, unspecified formulation Piotr Logan MD Work Phone: [facility] 12-09-2016 influenza, injectabl e, quadrivalent, preservative free Lauren HILL Work Phone: [facility] 10-17-2016 influenza virus vaccine, unspecified formulation Piotr Logan MD Work Phone: [facility] 01-03-2015 influenza virus vaccine, unspecified formulation Piotr Logan MD Work Phone: [facility] 01-03-2015 influenza, seasonal, injectable, preservative free Lauren HILL Work Phone: [facility] 01-03-2014 influenza virus vaccine, unspecified formulation Piotr Logan MD Work Phone: [facility] 01-03-2014 influenza, seasonal, injectable Lauren HILL Work Phone: [facility] Payers Date Payer Category Payer Self-pay [id number] 2022 Medicare (Managed Care) 1.2. [id number] 2022 Unknown [employer] AARP O PT[employer]CARE AARP [id number] 2022-Present [address] [address] [place] [address] [id number]. 7.3.303490.315 2021 Unknown [id number] 2021 Medicare [id number]. 1.13.424.2. [id number] 2017 Medicare [id number] 2.16.840.1.233880.19 1960 Unknown [id number] 2.16.840.1.413872.3.579.2. 593 1960 Unknown [id number] 2.16.840.1.798617.3.579.2. 593 1960 Unknown [id number] 2.16.840.1.302213.3.579.2. 593 1960 Unknown [id number] 2.16.840.1.188120.3.579.2. 593 1960 Unknown [id number] 2.16.840.1.768860.3.579.2. 593 1960 Unknown [id number] 2.16.840.1.746051.3.579.2. 593 1960 Unknown [id number] 2.16.840.1.747229.3.579.2. 593 1960 Unknown [id number] 2.16.840.1.115005.3.579.2. 593 1960 Unknown [id number] 2.16.840.1.996464.3.579.2. 593 1960 Unknown [id number] 2.16.840.1.490351.3.579.2. 1286 1960 Unknown [id number] 2.16.840.1.818858.3.579.2. 173 1960 Unknown [id number] 2.16.840.1.286784.3.579.2. 175 1960 Unknown [id number] 2.16.840.1.513962.3.579.2. 175 1960 Unknown [id number] 2.16.840.1.761113.3.579.2. 175 1960 Unknown [id number] 2.16.840.1.878132.3.579.2. 175 1960 Unknown [id number] 2.16.840.1.064958.3.579.2. 175 1960 Unknown [id number] 2.16.840.1.088304.3.579.2. 175 1960 Unknown [id number] 2.16.840.1.578821.3.579.2. 175 1960 Unknown [id number] 2.16.840.1.845202.3.579.2. 175 1960 Unknown [id number] 2.16.840.1.254476.3.579.2. 175 1960 Unknown [id number] 2.16.840.1.350182.3.579.2. 175 1960 Unknown [id number] 2.16.840.1.177537.3.579.2. 718 1960 Unknown [id number] 2.16.840.1.751801.3.579.2. 718 1960 Unknown [id number] 2.16.840.1.665560.3.579.2. 1286 1960 Unknown [id number] 2.16.840.1.755500.3.579.2. 1286 1960 Unknown [id number] 2.16.840.1.808248.3.579.2. 1286 1960 Unknown [id number] 2.16.840.1.052969.3.579.2. 1259 1960 Unknown [id number] 2.16.840.1.244934.3.579.2. 1259 1960 Unknown [id number] 2.16.840.1.506135.3.579.2. 1259 1960 Unknown [id number] 2.16.840.1.692131.3.579.2. 125 1960 Unknown [id number] 2.16.840.1.941490.3.579.2. 125 1960 Unknown [id number] 2.16.840.1.178853.3.579.2. 1258 1960 Unknown [id number] 2.16.840.1.741745.3.579.2. 125 1960 Unknown [id number] 2.16.840.1.052412.3.579.2. 1258 1960 Unknown [id number] 2.16.840.1.287688.3.579.2. 125 1960 Unknown [id number] 2.16.840.1.859028.3.579.2. 1258 1960 Unknown [id number] 2.16.840.1.883494.3.579.2. 125 1960 Unknown [id number] 2.16.840.1.276505.3.579.2. 125 1960 Unknown [id number] 2.16.840.1.772571.3.579.2. 125 1960 Unknown [id number] 2.16.840.1.478534.3.579.2. 125 1960 Unknown [id number] 2.16.840.1.456710.3.579.2. 125 1960 Unknown [id number] 2.16.840.1.875396.3.579.2. 125 1960 Unknown [id number] 2.16.840.1.870248.3.579.2. 125 1960 Unknown [id number] 2.16.840.1.157373.3.579.2. 1258 1960 Unknown [id number] 2.16.840.1.237310.3.579.2. 1258 1960 Unknown [id number] 2.16.840.1.063760.3.579.2. 1258 1960 Unknown [id number] 2.16.840.1.036764.3.579.2. 125 1960 Unknown [id number] 2.16.840.1.094817.3.579.2. 1258 1960 Unknown [id number] 2.16.840.1.410150.3.579.2. 1258 1960 Unknown [id number] 2.16.840.1.071473.3.579.2. 1258 1960 Unknown [id number] 2.16.840.1.870254.3.579.2. 1258 1960 Unknown [id number] 2.16.840.1.227174.3.579.2. 1258 1960 Unknown [id number] 2.16.840.1.591889.3.579.2. 1258 1960 Unknown [id number] 2.16.840.1.489599.3.579.2. 1258 1960 Unknown [id number] 2.16.840.1.743413.3.579.2. 1258 1960 Unknown [id number] 2.16840.1.449962.3.579.2. 9 1959 Medicare [id number] 2.16.840.1.463496.19 1959 Private Health Insurance [id number] Medicare [id number] 2.16.840.1.676949.19 Unknown Alexis BC/ [id number] Unknown [id number] 2.16.840.1.679850.3.579.2. 531 Unknown [id number] 2.16.840.1.645898.3.579.2. 531 Unknown [id number] 2.16.840.1.267106.3.579.2. 531 Social History Date Type Detail Facility Unknown if ever smoked [facility] [employer] Other Start: 06-15-2023 End: 09-23-2024 Sex Assigned At [facility] Work Phone: Start: 01-03-2021 End: 05-11-2023 Tobacco smoking status IAIS Ex-smoker (finding) [facility] Start: 1960 Sex Assigned At Female [facility] End: 06-20-2010 History of tobacco use Current smoker [facility] End: 06-20-2010 History of tobacco use Cigarette Smoker [facility] Start: 11-03-2022 End: 06-15-2023 Tobacco use and exposure Smokeless tobacco non-user [facility] Start: 06-30-2023 End: 09-23-2024 Alcohol intake Ex-drinker (finding) [facility] Start: 06-15-2023 End: 09-23-2024 History of Social function [facility] Work Phone: Start: 1960 Sex Assigned At Not on file [facility] Start: 11-03-2022 Tobacco smoking status IAIS Never smoked tobacco [facility] Start: 10-30-2022 Alcohol Comment caffeine: 3-4 cups per day [facility] Start: 12-30-2023 End: 05-26-2024 Sex Female (finding) [facility] Start: 06-03-2023 Alcoholic beverage intake Lifetime non-drinker (finding) [facility] Childcare Unknown [facility] Start: 04-12-2024 Alcohol Comment caffeine: 2 cu ps per day [facility] Start: 06-10-2024 Alcohol Comment caffeine: 2-3 cups per day [facility] NEGATED: Highlighted rowStart: CHEF History of tobacco use Passive smoker [facility] Medical Equipment Procedure Code Equipment Code Equipment Origin al Text Equipment Identifier Dates Arthroplasty, knee, total, minimally invasive Orthopaedic cement, non-medicated [id number] FDA Start: 01-03-2021 Arthroplasty, knee, total, minimally invasive Uncoated knee femur prosthesis ()[id number] FDA Start: 01-03-2021 Arthroplasty, knee, total, minimally invasive Tibial insert ()[id number] FDA Start: 01-03-2021 Arthroplasty, knee, total, minimally invasive Polyethylene patella prosthesis ()[id number] FDA Start: 01-03-2021 Arthroplasty, knee, total, minimally invasive Uncoated knee tibia prosthesis, metallic ()[id number] FDA Start: 01-03-2021 [id number] Start: 01-29-2021 Blood Sugar Diagnostic (Accu-Chek Guide [...] PHQ-9 quick depressi on assessment panel [Reported.PHQ] [facility] 09-23-2024 Patient Health Quest ionnaire 2 item (PHQ-2) [Reported] [facility] 08-30-2024 Patient Health Quest ionnaire 2 item (PHQ-2) [Reported] [facility] 06-14-2024 Patient Health Quest ionnaire 2 item (PHQ-2) [Reported] [facility] Clinical Notes 11-21-2020 to 09-23-2024 Lalitha Trujillo, NIDHI - 09/23/2024 3:30 PM Meggan Trujillo, NIDHI - 09/14/2024 2:00 PM Meggan Trujillo, NIDHI - 08/30/2024 12:30 PM Meggan Trujillo, NIDHI - 08/30/2024 12:30 PM EDTPatient Instructions Note [...] and has an upcoming appointment with her paint grinder at the end of this month. Her [...] with pain management. documented in this encounter [facility] 09-14-2024 History of Present illness Narrative Images from the original note were not included. Lesli Clay is a 64 y.o. female presents with chief complaint of ER Follow-up HPI: Flowsheet Row Office Visit from 09/14/2024 in [facility] Medicine with Lalitha Trujillo NP Hospital Information ED, Hospital or Long-Term Facility Discharge? ED Patient has been contacted within 2 days of being seen in the ED No Have two attempts been made, within 2 days of being seen in the ED, to contact the patient? -- [yes] Diagnosis [facility]is Discharge Date 09/08/24 Discharged To: Home Setting Discharge Hospital [facility] Engagement Admission Date 09/08/24 Medications Discharge medications reviewed and reconciled from hospital? Yes Appointments Does the patient have a primary care provider? Yes Self Management Patient Teaching Does the patient have access to their discharge instructions? Yes Wrap Up ER Follow-up SUBJECTIVE: MEDICATIONS: Current Outpatient Medications Medication Instructions Accu-Chek [facility]ix Lancets [facility] Accu-Chek Guide test strip amLODIPine (NORVASC) 5 mg, Oral, Daily amoxicillin-clavulanate (Augmentin) 875-125 MG tablet 1 tablet, 2 times daily ARIPiprazole (Abilify) 15 MG tablet Every 24 hours atorvastatin (LIPITOR) 40 mg, Oral, Daily buPROPion XL (Wellbutrin XL) 300 MG 24 hr tablet ergocalciferol (Vitamin D2) 1.25 MG (66410 UT) capsule hydrOXYzine HCl (ATARAX) 25 mg, Every 6 hours PRN insulin degludec (TRESIBA) 48 Units, Subcutaneous, Nightly Klayesta 293939 UNIT/GM powder APPLY EXTERNALLY TO AFFECTED SKIN [...] week to reassess. 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 She takes srnw-wvz-rraeeml Motrin 3 times daily, including once at night with her other medications. She is scheduled to see her paint grinder in either September or October 2024, as [...] independence. Living will and durable power of assistant district attorney reviewed. 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 documented in this encounter [facility] 08-24-2024 History of Present illness [...] sciatica. She is advised to consult her [place] pain management provider if needed or primary [...] requiring urgent evaluation. Visit was preformed using [employer]-die grinder speech recognition. documented in this encounter [facility] 08-02-2024 Telephone encounter Note Reviewed Xrays- (R) knee and shoulder- no obvious fracture.... Pt's spouse also had MRI done..- Will call to discuss results. Spoke with pt. Reports she fell on right side, hit knee cap.. will focus on ice and rest.. shoulder is sore... formal radiology reads pending.... will keep scheduled follow up for now. [facility] 08-02-2024 Miscellaneous Notes Reviewed Xrays- [...] She is scheduled with you 08/24 in [place]. There is no earlier openings. Please advise. documented in this encounter [facility] 08-02-2024 Telephone encounter Note Patient's called to let us know she did have xrays done today at her appt for her knee and shoulder. [facility] 08-02-2024 History of Present illness [...] Outpatient Medications Medication Instructions Accu-Chek [facility]Clix Lancets [facility] Accu-Chek Guide test strip ARIPiprazole (Abilify) 15 MG tablet Every 24 hours ARIPiprazole (ABILIFY) 10 mg, Daily atorvastatin (LIPITOR) 40 mg, Oral, Daily buPROPion XL (Wellbutrin XL) 300 MG 24 hr tablet ergocalciferol (Vitamin D2) 1.25 MG (09131 UT) capsule hydrOXYzine HCl (ATARAX) 25 mg, Every 6 hours PRN insulin degludec (TRESIBA) 48 Units, Subcutaneous, Nightly Klayesta 901007 UNIT/GM powder APPLY EXTERNALLY TO AFFECTED SKIN [...] by mouth Daily documented in this encounter [facility] 08-01-2024 Telephone encounter Note Patient's called in stating patient fell on her right arm today and paramedics thinks she should be seen sooner. She is scheduled with you 08/24 in [place]. There is no earlier openings. Please advise. [facility] 07-20-2024 History of Present illness [...] requiring urgent evaluation. Visit was preformed using [employer]die grinder speech recognition. documented in this encounter [facility] 07-01-2024 History of Present illness [...] requiring urgent evaluation. Visit was preformed using [employer]-die grinder speech recognition. documented in this encounter [facility] 07-01-2024 Instructions ESRGIO Iglesias - 07/01/2024 10:00 AM EDT Discussed [...] soon as possible documented in this encounter [facility] 06-21-2024 History of Present illness [...] requiring urgent evaluation. Visit was preformed using [employer]-die grinder speech recognition. documented in this encounter [facility] 06-20-2024 Note [id number] SURGERY Clinical Discharge Summary PERSON INFORMATION Name LESLI CLAY Age 64 Years 1960 Sex FEMALE Language New Zealander PCP JENNIFER CABRERA Marital Status Phone Med Service Ambulatory Surgery Acct# Arrival 06/17/2024 10:32:36 Visit Reason SURGERY - RIGHT SHOULDER ARTHROSCOPY WITH ROTATOR CUFF REPAIR AND BICEP TENODESIS Acuity LOS 052 05:37 Address: [address] [place] [id number] Comment: PROVIDER INFORMATION VITALS INFORMATION Vital Sign [...] (pregabalin 100 mg (more content not included)... [facility] 06-16-2024 Telephone encounter Note PDMP reviewed. Patient takes 7.5mg oxycodone 3x a day. [facility] Work Phone: 06-16-2024 Miscellaneous Notes PDMP reviewed. Patient takes 7.5mg oxycodone 3x a day. documented in this encounter [facility] 06-14-2024 History of Present illness Narrative Images from the original note were not included. Lesli Clay is a 64 y.o. female presents with chief complaint of Rt shoulder replacement 06/17/24 at [facility]. EKG and labs done on 06/01/24. [...] nortriptyline. Chronic pain is managed by a paint grinder. Tizanidine is taken once at night as [...] Outpatient Medications Medication Instructions Accu-Chek [facility]Clix Lancets [facility] Accu-Chek Guide test strip ARIPiprazole (Abilify) 15 MG tablet Every 24 hours ARIPiprazole (ABILIFY) 10 mg, Daily atorvastatin (LIPITOR) 40 mg, Oral, Daily buPROPion XL (Wellbutrin XL) 300 MG 24 hr tablet ergocalciferol (Vitamin D2) 1.25 MG (12979 UT) capsule hydrOXYzine HCl (ATARAX) 25 mg, Every 6 hours PRN insulin degludec (TRESIBA) 48 Units, Subcutaneous, Nightly Klayesta 513266 UNIT/GM powder APPLY EXTERNALLY TO AFFECTED SKIN [...] day. - Pain management regimen prescribed by paint grinder. - Continue current medications and follow-up as [...] prior to surgery. documented in this encounter [facility] 06-10-2024 History of Present illness [...] Outpatient Medications Medication Instructions Accu-Chek [facility]Clix Lancets [facility] Accu-Chek Guide test strip ARIPiprazole (Abilify) 15 MG tablet Every 24 hours atorvastatin (LIPITOR) 40 mg, Oral, Daily buPROPion XL (Wellbutrin XL) 300 MG 24 hr tablet ergocalciferol (Vitamin D2) 1.25 MG (27315 UT) capsule hydrOXYzine HCl (ATARAX) 25 mg, Every 6 hours PRN insulin degludec (TRESIBA) 48 Units, Subcutaneous, Nightly Klayesta 333923 UNIT/GM powder APPLY EXTERNALLY TO AFFECTED SKIN [...] SURGERY 2009 C5-C6 Neck - Dr. Ken MT ARTHROSCOPY KNEE DIAGNOSTIC W/WO SYNOVIAL [place] T[place] KNEE ARTHROPLASTY Right 10/2017 Dr. Blake ROTATOR CUFF REPAIR Left 2007 DR. RODRIGUEZ ROTATOR CUFF REPAIR Right 2009 DR. RODRIGUEZ TRIGGER FINGER RELEASE Right 04/25/2022 RT IF TRIGGER RELEASE- DR RODRIGUEZ TRIGGER FINGER RELEASE Right RT MF TRIGGER RELEASE- DR RODRIGUEZ TRIGGER FINGER RELEASE Left LT MF TRIGGER RELEASE- DR RODRIUGEZ TRIGGER FINGER RELEASE Right 12/12/2022 RT RF. [...] persist or worsen. documented in this encounter [facility] 05-31-2024 History of Present illness [...] SURGERY 2009 C5-C6 Neck - Dr. Ken MT ARTHROSCOPY KNEE DIAGNOSTIC W/WO SYNOVIAL BX SPX [place] @[place] TOTAL KNEE ARTHROPLASTY Right 10/2017 Dr. Blake [...] Outpatient Medications Medication Instructions Accu-Chek FastClix Lancets [facility] Accu-Chek Guide test strip ARIPiprazole (Abilify) 15 MG tablet Every 24 hours atorvastatin (LIPITOR) 40 mg, Oral, Daily buPROPion XL (Wellbutrin XL) 300 MG 24 hr tablet ergocalciferol (Vitamin D2) 1.25 MG (65693 UT) capsule hydrOXYzine HCl (ATARAX) 25 mg, [...] follow-ups on file. documented in this encounter [facility] 05-25-2024 Evaluation note Diagnosis Onset Date Resolution Dietary counseling and surveillance acute May 25, 2024 9:32am Encounter for long-term (current) insulin use acute May 25, 2024 9:32am Hyperlipemia acute May 25, 025 9:32am Hypertension acute May 25, 2 025 9:32am Type 2 diabetes mellitus with hyperglycemia acute May 25 9:32am Vitamin D deficiency, unspecified acute May 25, 2024 9:32am [facility] Work Phone: [phone]) 179-660504-07-2025 History of Present illness Narrative* Blane Pino DPM - 05/23/2024 1:30 PM EDT Images from the original note were not included. Subjective Patient ID: Lesli Clay is a 64 y.o. female who presents for IPK Lesion (Lesli Clay 64yo patient presents with Left foot callus pain. /BS 103 A1C 9.7 (01/2025)Dr. Cabrera/Yoly 04/12/2024 SS 9). HPI Patient last in [...] poor quality slip on shoes; recently purchased [employer] footwear with memory foam, which has been [...] Rfl: 0 ergocalciferol (Vitamin D2) 1.25 MG (43865 UT) capsule, TAKE 1 CAPSULE BY MOUTH [...] SURGERY 2008 C5-C6 Neck - Dr. Ken MT ARTHROSCOPY KNEE DIAGNOSTIC W/WO SYNOVIAL BX SPX Left [place] TOTAL KNEE ARTHROPLASTY Right 10/2017 Dr. Blake ROTATOR CUFF REPAIR Left 2007 DR. RODRIGUEZ ROTATOR CUFF REPAIR Right 2009 DR. RODIRGUEZ TRIGGER FINGER RELEASE Right 04/25/2022 RT IF [...] or corrected. Thank you for your understanding. Blnae Pino DPM documented in this [facility]04-07-2025 Instructions* Patient Instructions* Blane Pino DPM - 05/23/2024 1:30 PM EDT As noted documented in this [facility]03-11-2025 History of Present illness Narrative* Jr. Rica Rodriguez, - 04/26/2024 8:45 AM EDT Images from [...] VISIT WITH INSTRUCTION ON HEP) PAIN MANAGEMENT @[facility] NO IMPROVEMENT. PAIN LATERAL AND ANTERIOR SHOULDER. [...] for claustrophobia ergocalciferol (Vitamin D2) 1.25 MG (60284 UT) capsule TAKE 1 CAPSULE BY MOUTH [...] Use - Medium Risk (04/11/2024) Received from [facility] Patient History Smoking Tobacco Use: Former [...] for requiring urgent evaluation. documented in this [facility]03-03-2025 Telephone encounter Note* Telephone Encounter - Lalitha Trujillo NP - 04/18/2024 2:11 PM EST Can you please get her schedule for DM appointment next week, she is due to have her A1c rechecked [facility] Work Phone: 1([phone]) 841-504703-03-2025 Miscellaneous Notes* Telephone Encounter - Lalitha Trujillo NP - 04/18/2024 2:11 PM EST Can you please get her schedule for DM appointment next week, she is due to have her A1c rechecked documented in this [facility]02-25-2025 History of Present illness Narrative* Alexandra [...] of asthma. She has been self-medicating with adrx-xlt-eboqmgd cough and cold medications but did not take any such medication yesterday. Her blood pressure was recorded as 232/109 during a recent visit to her biomed tech in [place], prompting a recheck post-examination, which yielded a [...] for claustrophobia ergocalciferol (Vitamin D2) 1.25 MG (85279 UT) capsule TAKE 1 CAPSULE BY MOUTH [...] SURGERY 2009 C5-C6 Neck - Dr. Ken MT ARTHROSCOPY KNEE DIAGNOSTIC W/WO SYNOVIAL BX SPX [place] @[place] TOTAL KNEE ARTHROPLASTY Right 10/2017 Dr. Blake [...] mononeuropathy, with long-term current use of insulin ([facility]) SOB (shortness of breath) - XR chest [...] 232/109 during a recent visit to her biomed tech.It is possible that her pqng-riz-xcunfhv cough and cold medication, if containing DM, could have contributed to the elevation in her blood pressure. She is advised to monitor her blood pressure at home on a weekly basis and report any readings exceeding 150/90. She is also reminded to adhere to herdaily antihypertensive medication regimen and maintain adequate hydration. No follow-ups on file. documented in this encounterOzarks Medical [id number] History of Present illness Narrative* Sean Tineo, [...] Please sign below. Date: documented in this encounterOzarks Medical [id number] History of Present illness Narrative* Rica Nair [...] 12/29/23 NO MDP/PREDNISONE NO PT PAIN MANAGEMENT @[facility] STATES SHOULDER IS FEELING WORSE. PAIN LATERAL [...] for claustrophobia ergocalciferol (Vitamin D2) 1.25 MG (05397 UT) capsule TAKE 1 CAPSULE BY MOUTH [...] Use - Medium Risk (01/05/2024) Received from [employer] Patient History Smoking Tobacco Use: Former Smokeless [...] for requiring urgent evaluation. documented in this encounterOzarks Medical CenterZzyxumdhzq63-25-8266 Telephone encounter Note* Telephone Encounter - Jennifer Cabrera MD - 2024 12:47 PM EST Refills sent. [facility] CenterFfoyrgdpsw73-25-3232 Miscellaneous Notes* Telephone Encounter - Jennifer Cabrera MD - 2024 12:47 PM EST Refills sent. documented in this [facility]01-18-2025 Telephone encounter Note* Telephone Encounter - Alexandra Osorio NP - 03/05/2024 9:01 AM EST Please call and request her records from Lili Burgos NP at [facility] for her diabetes. [facility] [id number] Miscellaneous Notes* Telephone Encounter - Alexandra Osorio NP - 03/05/2024 9:01 AM EST Please call and request her records from Lili Burgos NP at [facility] for her diabetes. documented in this [facility]01-18-2025 History of Present illness Narrative* Comfort [...] for claustrophobia ergocalciferol (Vitamin D2) 1.25 MG (91062 UT) capsule TAKE 1 CAPSULE BY MOUTH [...] She is under the care of an roll form operator for her diabetes management. Her most recent depfymovabU8o level was either 7.9 or 8, indicating [...] for claustrophobia ergocalciferol (Vitamin D2) 1.25 MG (47471 UT) capsule TAKE 1 CAPSULE BY MOUTH [...] 08/2016 COVID 02/2020 DENIES BLOODBORNE DX Depression ([facility]/HCC) Diabetes ([facility]) GERD (gastroesophageal reflux disease) HTN (hypertension) ([facility]) Hyperlipidemia (CMS/HCC) Osteoarthritis RSD (reflex sympathetic dystrophy) [...] SURGERY 2009 C5-C6 Neck - Dr. Ken MT ARTHROSCOPY KNEE DIAGNOSTIC W/WO SYNOVIAL BX SPX [place] TOTAL KNEE ARTHROPLASTY Right 10/2017 Dr. Blake [...] mononeuropathy, with long-term current use of insulin ([facility]) Skin rash Assessment & Plan Rash on [...] 8, indicating suboptimal control. Records from her roll form operator will be requested to review her recent A1c levels and overall management plan. No follow-ups on file. documented in this encounterOzarks Medical [id number] Telephone encounter Note* Telephone Encounter - Omaira Estrada - 03/02/2024 1:20 PM EST Patient notified [facility] [id number] Miscellaneous Notes* Telephone Encounter - Omaira Estrada - 03/02/2024 1:20 PM EST Patient notified * Telephone Encounter - SERGIO Iglesias - 03/02/2024 12:38 PM EST Rx sent to pharmacy, please notify pt. She can not drive with medication and can't work after taking them.. will need a driver merchandiser too and from MRI appt. * Telephone Encounter - Omaira Estrada - 03/02/2024 10:31 AM EST Patient called asking about medication for MRI for claustrophobia. Patient states she has tried the pills for premed (possibly Xanax but she isn't sure) and they did not help her. Patient states another medication was discussed in office and she would like to try that. She uses [facility] [place]. Her call back is [phone]. Please advise, thank you documented in this encounterOzarks Medical [id number] Telephone encounter Note* Telephone Encounter - SERGIO Iglesias - 03/02/2024 12:38 PM EST Rx sent to pharmacy, please notify pt. She can not drive with medication and can't work after taking them.. will need a driver merchandiser too and from MRI appt. [facility] [id number] Telephone encounter Note* Telephone Encounter - Omaira Estrada - 03/02/2024 10:31 AM EST Patient called asking about medication for MRI for claustrophobia. Patient states she has tried the pills for premed (possibly Xanax but she isn't sure) and they did not help her. Patient states another medication was discussed in office and she would like to try that. She uses [facility] [place]. Her call back is [phone]. Please advise, thank you [facility] [id number] History of Present illness Narrative* Alexandra Osorio, [...] She is under the care of an roll form operator, Dr. Burgos, at [facility] for her diabetes management. Her last consultation [...] tablet daily ergocalciferol (Vitamin D2) 1.25 MG (89424 UT) capsule TAKE 1 CAPSULE BY MOUTH [...] mononeuropathy, with long-term current use of insulin ([facility]) Symptoms are likely related to diabetic neuropathy. She [facility] Lili [facility] [place] [facility] [place] and had an A1C in [...] and agreed to plan. documented in this encounterOzarks Medical [id number] History of Present illness Narrative* SERGIO Iglesias [...] tablet daily ergocalciferol (Vitamin D2) 1.25 MG (68286 UT) capsule TAKE 1 CAPSULE BY MOUTH [...] Use - Medium Risk (01/05/2024) Received from [employer] Patient History Smoking Tobacco Use: Former Smokeless [...] The possibility of conducting the MRI at [facility] with potential IM sedation was considered, and [...] for requiring urgent evaluation. documented in this encounterOzarks Medical [id number] History of Present illness Narrative* Pastora Kohler, [...] tablet daily ergocalciferol (Vitamin D2) 1.25 MG (60901 UT) capsule TAKE 1 CAPSULE BY MOUTH [...] office tomorrow in improvement. documented in this encounterOzarks Medical CenterBplcwzecgk48-70-2423 Evaluation note* Diagnosis Onset Date Resolution Status Admit Date Dietary counseling and surveillance acute December 29, 024 9:39am Encounter for long-term (current) insulin use acute December 17 3t2023 9:39am Hyperlipemia acute December h2023 9:39am Hypertension acute December 9:39am Type 2 diabetes mellitus wit h hyperglycemia acute December 29, 024 9:39am Vitamin D deficiency, unspecified acute December 29 024 9:39am [facility] Work Phone: 1(318) 139-950611-12-2024 History of Present illness Narrative* SERGIO Iglesias [...] tablet daily ergocalciferol (Vitamin D2) 1.25 MG (01331 UT) capsule TAKE 1 CAPSULE BY MOUTH [...] Use - Medium Risk (12/10/2023) Received from [facility] Patient History Smoking Tobacco Use: Former [...] for requiring urgent evaluation. documented in this encounterOzarks Medical [id number] History of Present illness Narrative* SREGIO Iglesias - 12/11/2023 10:15 AM EDT Images [...] tablet daily ergocalciferol (Vitamin D2) 1.25 MG (26305 UT) capsule TAKE 1 CAPSULE BY MOUTH [...] for requiring urgent evaluation. documented in this encounterOzarks Medical [id number] History of Present illness Narrative* SERGIO Iglesias [...] tablet daily ergocalciferol (Vitamin D2) 1.25 MG (20250 UT) capsule TAKE 1 CAPSULE BY MOUTH [...] Use - Medium Risk (09/09/2023) Received from [facility] Patient History Smoking Tobacco Use: Former [...] for requiring urgent evaluation. documented in this encounterOzarks Medical CenterEuddmuhldc72-51-4000 Hospital Discharge instructions* Discharge Instructions* Gladys Frias [...] unless otherwise instructed. [facility] History of Present illness Narrative* Gladys Frias RN - 06/30/2023 11:16 AM EDT Patient admitted, consent signed and questions answered. Patient ready for procedure. Call light toreach with side rails up 2 of 2. Bilateral groin clipped with justowriter operator and Gabrielle NGUYEN present. Salvador at bedside with patient. History and physical needs updated. [facility] Miscellaneous Notes* Telephone Encounter - Liat Camejo - 06/04/2023 2:58 PM EDT Paper Mill Manager rec'd VM from [facility] in precert stating Dr. Moreno/Andre is out network with this patient insurance and procedure will not be covered, however, pt insurance covers [facility]. Paper Mill Manager called over to [facility] Voice Instructor/Onc regarding patient to see if they could see this patient and take over care, theyrequested all information be faxed to their office and they will reach out to patient. Paper Mill Manager did notify patient we had to cx procedure and all upcoming appts, referral was sent over to [facility] ankle patch molder/onc, pt voices understanding and justowriter operator advised pt to call our office back if she has any problems getting established with another provider, pt voices understanding. [facility] Telephone encounter Note* Telephone Encounter - Liat Camejo - 06/04/2023 2:58 PM EDT Paper Mill Manager rec'd VM from [facility] in precert stating Dr. Moreno/Andre is out network with this patient insurance and procedure will not be covered, however, pt insurance covers [place]. Paper Mill Manager called over to [facility] Voice Instructor/Onc regarding patient to see if they could see this patient and take over care, theyrequested all information be faxed to their office and they will reach out to patient. Paper Mill Manager did notify patient we had to cx procedure and all upcoming appts, referral was sent over to [facility] ankle patch molder/onc, pt voices understanding and justowriter operator advised pt to call our office back if she has any problems getting established with another provider, pt voices understanding. [facility] [id number] History of Present illness Narrative* Edwin Moreno [...] Date Anxiety Arthritis Cellulitis Depression Diabetes mellitus ([facility] [place] Diabetes mellitus type 2, controlled ([facility]) Fibromyalgia, primary GERD (gastroesophageal reflux disease) Hyperlipidemia [...] recurrent major depressive disorder, without psychotic features ([facility] [place]) Cellulitis of right lower extremity Endometrial cancer ([facility] [place]) BMI 50.0-59.9, adult ([facility] [place]) Plan: 1. The patient has a documented [...] Referring and communicating with other health care specialist (not separately reported) Documenting clinical information in the electronic or other health record Edwin Moreno MD documented in this encounterCorey HospitalCareem [id number] Evaluation note* Author Kaya Tomlinson [facility] Authored April 07, 2023 11:54am Patient here [...] for Bella CGM will be sent to [facility] to determine cost for CGM. Patient provided contact number for [facility]. If pt is unable to afford CGM, pt instructed to continue use of her personal meter. Pt to return in 2 weeks for download with elementary educator and in approximately 4 week follow up with provider. Encouraged to return for follow up visit. 45 minutes spent on education with Jodi DAIGLE RN. [facility] Work Phone: 1(511) 652-288102-20-2024 Evaluation note* Author Kaya Tomlinson [facility] Authored April 07, 2023 11:54am Patient here [...] for Bella CGM will be sent to [facility] [place] to determine cost for CGM. Patient provided contact number for [facility]. If pt is unable to afford CGM, pt instructed to continue use of her personal meter. Pt to return in 2 weeks for download with elementary educator and in approximately 4 week follow up with provider. Encouraged to return for follow up visit. 45 minutes spent on education with Jodi DAIGLE RN. Author Lili [facility] Authored May 11, 2023 1:1 [...] of hypoglycemia, hyperglycemia, or diabetes medication issues. [facility] Work Phone: 1(165) 124-603012-19-2023 Evaluation note* Encounter Date Diagnosis Assessment Notes [...] cost. Sampled Synnavidrdy 12.06/999 and given voucher Aubree_ _ should [...] of insulin. Patient deferred due to her [id number]-uzbwtg cost. We will retry in a couple [...] at goal of less than 130/80 Jan, group home current use of insulin (ICD-10 - Z79.4) Jan, BMI 50.0-59.9, adult (ICD-10 - Z68.43) [employer] Other 10-11-2023 Evaluation note* Encounter Date Diagnosis [...] of insulin. Patient deferred due to her eku-wh-pvolmz cost. We will retry in a couple [...] medication issues. 6. Prescriptions: None needed 10-03-2022.PAP Ozempbrooklyn/Tredonnie. PAP denied for Jardiance Nov, Vitamin D [...] at goal of less than 130/80 Nov, bathhouse attendant current use of insulin (ICD-10 - Z79.4) Nov, BMI 50.0-59.9, adult (ICD-10 - Z68.43) [employer] Other 10-10-2023 Evaluation note* Encounter Date Diagnosis [...] Nov, Other chronic pain (ICD-10 - G89.29) [employer] Other 08-24-2023 Evaluation note* Encounter Date Diagnosis [...] of lumbar spinal fusion (ICD-10 - Z98.1) [employer] Other 08-18-2023 Evaluation note* Encounter Date Diagnosis [...] of insulin. Patient deferred due to her git-wr-fxzetc cost. 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 Shows posterior mechanical fusion at the L1-S1 with posterior decompression at the L1-L3. Patient had physical therapy at [facility] and continues to do the home physical therapy without improvement. Will order xray lumbar 6 view to rule out any spondylolisthesis. Will order MRI to rule out any cord compression. Will get release of information from pain management Dr. Cook and [facility] physical therapy for continuity of care.Will order Aqua therapy. OARRS reviewed. pharmacological management reviewed, will continue with current prescriptions as prescribed. Will add lidocaine patch and awch-uuh-mkanktx Thermo patch. Will follow-up in 8 weeks [...] rule out osteoporosis Jul, Other OARRS reveiwed [employer] Other 06-16-2023 Evaluation note* Encounter Date Diagnosis [...] of insulin. Patient deferred due to her zny-fb-pgeswa cost. We will retry in a couple [...] About Healthy Weight material was published to [employer] Jul, Hyperlipidemia (ICD-10 - E78.5) Learning About High Cholesterol material was published to portal will discuss with PCP possibility of increasing statin as LDL 134, consistently taking Atorvastatin 40 mg Jul, HTN (hypertension) (ICD-10 - I10) High Blood Pressure: Care Instructions material was published to portal Jul, group home current use of insulin (ICD-10 - Z79.4) Jul, BMI 50.0-59.9, adult (ICD-10 - Z68.43) [employer] Other 04-21-2023 Evaluation note* Encounter Date Diagnosis [...] Instructions material was published to portal May, group home current use of insulin (ICD-10 - Z79.4) May, BMI 50.0-59.9, adult (ICD-10 - Z68.43) May, Other Expect improvement with escalation of Ozempic to 2.0 mg subcu daily. Weight up today without decrease in insulin needs, no increases satiety The patient was given a Dexcom G6 sample and loaned an Office owned Dexcom G6 Set Up Mold Technician. The sensor was placed on the back of her right arm by this educator. The patient was shown how to unlock the film projector operator and read her BG. 15 minutes were spent placing the sensor and educating the patient by Lit Dixon RN, [facility] . [employer] Other 03-30-2023 NoteCONSULTATION CONSULTATION DATE: 05/15/2022 TO: [...] of the iliohypogastric nerve under fluoroscopic guidance.[facility] [id number] Evaluation note* Encounter Date Diagnosis Assessment Notes [...] Instructions material was published to portal Feb, group home current use of insulin (ICD-10 - Z79.4) Feb, BMI 45.0-49.9, adult (ICD-10 - Z68.42) Expect improvement with escalation of Ozempic to 2.0 mg subcu daily. Weight up today without decrease in insulin needs, no increases satiety [employer] Other 12-29-2022 NoteCONSULTATION CONSULTATION DATE: 02/13/2022 HISTORY [...] is able to walk unassisted. Medications include Floweree 5/325 t.i.d., baclofen 10 mg q.h. s., [...] at this time, which will include Lyrica, Floweree and baclofen. We will see the patient in three months' time, unless otherwise indicated. Patient was asked to call the office with an update once she has seen Neurosurgery.[facility] 12-31-2021 Evaluation note* Encounter Date Diagnosis Assessment Notes Treatment Notes Treatment Clinical Notes Dec, Type 2 diabetes mellitus with hyperglycemia (ICD-10 - E11.65) [employer] Other 09-21-2022 NoteCONSULTATION CONSULTATION DATE: 11/06/2021 HISTORY [...] secondary to her pain. Current medications include Floweree 5/325 t.i.d., baclofen 10 mg q.h.s., Pamelor [...] indicated, and patient agrees with this plan.[facility] [id number] Evaluation note* Encounter Date Diagnosis Assessment Notes [...] Instructions material was published to portal Oct, group home current use of insulin (ICD-10 - Z79.4) Oct, BMI 45.0-49.9, adult (ICD-10 - Z68.42) Expect improvement with escalation of Ozempic to 2.0 mg subcu daily. Weight slightly improving. hopeful for continue reduction to increase insulin sensitivity and decrease insulin needs. [employer] Other 06-16-2022 NoteCONSULTATION CONSULTATION DATE: 08/01/2021 HISTORY [...] burn but manageable. Her current medications are Floweree 5/325 t.i.d., baclofen 10 mg q.h.s. and [...] move forward with aqua therapy at the [place] location. I did discuss vitamins with her as well as nutrition importance. Patient will be seen at the clinic in three months' time unless otherwise indicated. [facility] Signed and Approved by: ALICIA HERNANDEZ . 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 [employer] Other 10-06-2021 Evaluation note* Encounter Date Diagnosis [...] Prescriptions: None needed at this time. Nov, group home current use of insulin (ICD-10 - Z79.4) Nov, HTN (hypertension) (ICD-10 - I10) High Blood Pressure: Care Instructions material was published to [employer] Nov, Hyperlipidemia (ICD-10 - E78.5) Learning About High Cholesterol material was published to [employer] Nov, Dietary counseling and surveillance (ICD-10 - Z71.3) Learning About Healthy Weight material was published to [employer] Nov, BMI 45.0-49.9, adult (ICD-10 - Z68.42) Nov, Albuminuria (ICD-10 - R80.9) Nov, BMI 50.0-59.9, adult (ICD-10 - Z68.43) Nov, Other Learning About Vitamin D material was published to [employer] [place] [employer] Other Evaluation noteNo InformationNortGeisinger [facility] [employer] Other Evaluation noteNo assessment information available [facility] Work Phone: Evaluation note* Diagnosis Onset Date Resolution Status Type 2 diabetes mellitus with hyperglycemia acute [facility] Work Phone: Evaluation note* Diagnosis Abnormal stress test Other nonspecific abnormal cardiovascular system function study documented [facility] this [facility] Diagnosis Onset Date Resolution Status Hyperlipemia acute Hypertension acute Type 2 diabetes mellitus with hyperglycemia acute [facility] Work Phone: Evaluation note* Diagnosis Acute pain of left knee- Primary History of left knee replacement Left hip pain Pain in joint, pelvic region and thigh documented in this encounter [facility] HealthcareEvaluation note* Diagnosis Wellness examination- Primary Encounter for screening mammogram for malignant neoplasm of breast Heart murmur, systolic Preoperative clearance Unspecified pre-operative examination Primary hypertension (CMS/HCC) Unspecified essential hypertension BMI 50.0-59.9, adult ([facility]) Mixed hyperlipidemia ([facility]) Mixed hyperlipidemia Recurrent major depressive disorder, in partial remission (HCC) ([facility]) Type 2 diabetes mellitus with hyperglycemia, with long-term current use of insulin ([facility]) Primary hypertension ([facility]) Unspecified essential hypertension documented in this encounter [facility] HealthcareEvaluation note* Diagnosis Wellness examination- Primary Encounter for screening mammogram for malignant neoplasm of breast Heart murmur, systolic Preoperative clearance Unspecified pre-operative examination Primary hypertension ([facility]) Unspecified essential hypertension BMI 50.0-59.9, adult ([facility]) Mixed hyperlipidemia ([facility]) Mixed hyperlipidemia Recurrent major depressive disorder, in partial remission (HCC) ([facility]) Type 2 diabetes mellitus with hyperglycemia, with long-term current use of insulin ([facility]) Acute pain of left knee- Primary History of left knee replacement documented in this encounter [facility] HealthcareEvaluation note* Diagnosis Onset Date Resolution Status Admit Date Dietary counseling and surveillance acute December 29, 024 9:39am Encounter for long-term (current) insulin use acute December 17 3th2023 9:39am Hyperlipemia acute December h, 2023 9:39am Hypertension acute December h, 2023 9:39am Type 2 diabetes mellitus wit h hyperglycemia acute December 29, 024 9:39am Vitamin D deficiency, unspecified acute December 29 024 9:39am [facility] Work Phone: Evaluation note* Diagnosis Wellness examination- Primary Encounter for screening mammogram for malignant neoplasm of breast Heart murmur, systolic Preoperative clearance Unspecified pre-operative examination Primary hypertension ([facility]/HCC) Unspecified essential hypertension BMI 50.0-59.9, adult ([facility]CC) Mixed hyperlipidemia ([facility]/HCC) Mixed hyperlipidemia Recurrent major depressive disorder, in partial remission (HCC) ([facility]) Type 2 diabetes mellitus with hyperglycemia, with long-term current use of insulin ([facility]) Acute pain of right shoulder- Primary Arthritis of right acromioclavicular joint documented in this encounter [facility]* Diagnosis Wellness examination- Primary Encounter for screening mammogram for malignant neoplasm of breast Heart murmur, systolic Preoperative clearance Unspecified pre-operative examination Primary hypertension ([facility]) Unspecified essential hypertension BMI 50.0-59.9, adult ([facility]) Mixed hyperlipidemia ([facility]) Mixed hyperlipidemia Recurrent major depressive disorder, in partial remission (HCC) ([facility]) Type 2 diabetes mellitus with hyperglycemia, with long-term current use of insulin ([facility]) Bronchitis- Primary Bronchitis, not specified as acute or chronic Type 2 diabetes mellitus with diabetic mononeuropathy ([facility]) Wheezing documented in this encounter [facility]* Diagnosis Wellness examination- Primary Encounter for screening mammogram for malignant neoplasm of breast Heart murmur, systolic Preoperative clearance Unspecified pre-operative examination Primary hypertension ([facility]) Unspecified essential hypertension BMI 50.0-59.9, adult ([facility]) Mixed hyperlipidemia ([facility]) Mixed hyperlipidemia Recurrent major depressive disorder, in partial remission (HCC) ([facility]) Type 2 diabetes mellitus with hyperglycemia, with long-term current use of insulin ([facility]) Acute pain of right shoulder- Primary Arthritis of right acromioclavicular joint Internal derangement of right shoulder History of claustrophobia documented in this encounter [facility]* Diagnosis Wellness examination- Primary Encounter for screening mammogram for malignant neoplasm of breast Heart murmur, systolic Preoperative clearance Unspecified pre-operative examination Primary hypertension ([facility]) Unspecified essential hypertension BMI 50.0-59.9, adult ([facility]) Mixed hyperlipidemia ([facility]) Mixed hyperlipidemia Recurrent major depressive disorder, in partial remission (HCC) ([facility]) Type 2 diabetes mellitus with hyperglycemia, with long-term current use of insulin ([facility]) Type 2 diabetes mellitus with diabetic mononeuropathy, with long-term current use of insulin ([facility])- Primary Left leg cellulitis Morbid (severe) obesity due to excess calories ([facility]) Body mass index (BMI) 50.0-59.9, adult ([facility]) Type 2 diabetes mellitus with other skin complications ([facility]) Bipolar disorder, unspecified ([facility]) Bipolar disorder, unspecified documented in this encounter [facility]* Diagnosis Wellness examination- Primary Encounter for screening mammogram for malignant neoplasm of breast Heart murmur, systolic Preoperative clearance Unspecified pre-operative examination Primary hypertension ([facility]) Unspecified essential hypertension BMI 50.0-59.9, adult ([facility]) Mixed hyperlipidemia ([facility]) Mixed hyperlipidemia Recurrent major depressive disorder, in partial remission (HCC) ([facility]) Type 2 diabetes mellitus with hyperglycemia, with long-term current use of insulin ([facility]) History of claustrophobia- Primary documented in this encounter [facility] HealthcareEvaluation note* Diagnosis Wellness examination- Primary Encounter for screening mammogram for malignant neoplasm of breast Heart murmur, systolic Preoperative clearance Unspecified pre-operative examination Primary hypertension ([facility]) Unspecified essential hypertension BMI 50.0-59.9, adult ([facility]) Mixed hyperlipidemia ([facility]) Mixed hyperlipidemia Recurrent major depressive disorder, in partial remission (HCC) ([facility]) Type 2 diabetes mellitus with hyperglycemia, with long-term current use of insulin ([facility]) Left leg cellulitis- Primary Type 2 diabetes mellitus with diabetic mononeuropathy, with long-term current use of insulin ([facility]) Skin rash Rash and other nonspecific skin eruption Opioid dependence, uncomplicated ([facility]) documented in this encounter [facility] HealthcareEvaluation note* Diagnosis Wellness examination- Primary Encounter for screening mammogram for malignant neoplasm of breast Heart murmur, systolic Preoperative clearance Unspecified pre-operative examination Primary hypertension ([facility]) Unspecified essential hypertension BMI 50.0-59.9, adult ([facility]) Mixed hyperlipidemia ([facility]) Mixed hyperlipidemia Recurrent major depressive disorder, in partial remission (HCC) ([facility]) Type 2 diabetes mellitus with hyperglycemia, with long-term current use of insulin ([facility]) Mixed hyperlipidemia ([facility]) Mixed hyperlipidemia documented in this encounter [facility] HealthcareEvaluation note* Diagnosis Wellness examination- Primary Encounter for screening mammogram for malignant neoplasm of breast Heart murmur, systolic Preoperative clearance Unspecified pre-operative examination Primary hypertension ([facility]) Unspecified essential hypertension BMI 50.0-59.9, adult ([facility]) Mixed hyperlipidemia ([facility]) Mixed hyperlipidemia Recurrent major depressive disorder, in partial remission (HCC) ([facility]) Type 2 diabetes mellitus with hyperglycemia, with long-term current use of insulin ([facility]) Acute pain of right shoulder- Primary Arthritis of right acromioclavicular joint Biceps tendinitis, right documented in this encounter [facility] HealthcareEvaluation note* Diagnosis Wellness examination- Primary Encounter for screening mammogram for malignant neoplasm of breast Heart murmur, systolic Preoperative clearance Unspecified pre-operative examination Primary hypertension (CMS/HCC) Unspecified essential hypertension BMI 50.0-59.9, adult ([facility]) Mixed hyperlipidemia ([facility]/HCC) Mixed hyperlipidemia Recurrent major depressive disorder, in partial remission (HCC) ([facility]) Type 2 diabetes mellitus with hyperglycemia, with long-term current use of insulin ([facility]) Biceps tendinitis, right- Primary Impingement of right shoulder documented in this encounter [facility] HealthcareEvaluation note* Diagnosis Endometrial cancer ([facility])- Primary Malignant neoplasm of corpus uteri, except isthmus BMI 50.0-59.9, adult ([facility]) documented in this encounter [facility] SystemEvaluation note* Diagnosis Wellness examination- Primary Encounter for screening mammogram for malignant neoplasm of breast Heart murmur, systolic Preoperative clearance Unspecified pre-operative examination Primary hypertension ([facility]) Unspecified essential hypertension BMI 50.0-59.9, adult ([facility]) Mixed hyperlipidemia ([facility]/HCC) Mixed hyperlipidemia Recurrent major depressive disorder, in partial remission (HCC) ([facility]) Type 2 diabetes mellitus with hyperglycemia, with long-term current use of insulin ([facility]) Type 2 diabetes mellitus with diabetic mononeuropathy, with long-term current use of insulin ([facility])- Primary SOB (shortness of breath) Shortness of breath Wheezing Poorly-controlled hypertension ([facility]) documented in this encounter [facility] HealthcareEvaluation note* Diagnosis Wellness examination- Primary Encounter for screening mammogram for malignant neoplasm of breast Heart murmur, systolic Preoperative clearance Unspecified pre-operative examination Primary hypertension ([facility]) Unspecified essential hypertension BMI 50.0-59.9, adult ([facility]) Mixed hyperlipidemia ([facility]/HCC) Mixed hyperlipidemia Recurrent major depressive disorder, in partial remission (HCC) ([facility]) Type 2 diabetes mellitus with hyperglycemia, with long-term current use of insulin ([facility]) Acute non-recurrent pansinusitis- Primary documented in this encounter [facility] HealthcareEvaluation note* Diagnosis Wellness examination- Primary Encounter for screening mammogram for malignant neoplasm of breast Heart murmur, systolic Preoperative clearance Unspecified pre-operative examination Primary hypertension ([facility]) Unspecified essential hypertension BMI 50.0-59.9, adult ([facility]) Mixed hyperlipidemia ([facility]/HCC) Mixed hyperlipidemia Recurrent major depressive disorder, in partial remission (HCC) ([facility]) Type 2 diabetes mellitus with hyperglycemia, with long-term current use of insulin ([facility] SERVICES/[facility]) Acute pain of right shoulder- Primary Arthritis of right acromioclavicular joint Biceps tendinitis, right Partial nontraumatic tear of rotator cuff, right documented in this encounter [facility] HealthcareEvaluation note* Diagnosis Wellness examination- Primary Encounter for screening mammogram for malignant neoplasm of breast Heart murmur, systolic Preoperative clearance Unspecified pre-operative examination Primary hypertension ([facility]) Unspecified essential hypertension BMI 50.0-59.9, adult ([facility]) Mixed hyperlipidemia ([facility]) Mixed hyperlipidemia Recurrent major depressive disorder, in partial remission (HCC) ([facility]) Type 2 diabetes mellitus with hyperglycemia, with long-term current use of insulin ([facility]) Bursitis of left foot- Primary Acquired keratoderma Pain in left foot Pain in soft tissues of limb Difficulty walking Difficulty in walking documented in this encounter [facility] HealthcareEvaluation note* Diagnosis Onset Date Resolution Status Admit Date Dietary counseling and surveillance acute May 25, 2024 9:32am Encounter for long-term (cur rent) insulin use acute May 25, 2024 9:32am Hyperlipemia acute May 25, 2 025 9:32am Hypertension acute May 25 2 025 9:32am Type 2 diabetes mellitus wit h hyperglycemia acute May 25, 2024 9:32am Vitamin D deficiency, unspecified ac [place] May 25, 2024 9:32am [facility] Work Phone: Evaluation note* Diagnosis Wellness examination- Primary Encounter for screening mammogram for malignant neoplasm of breast Heart murmur, systolic Preoperative clearance Unspecified pre-operative examination Primary hypertension ([facility]/HCC) Unspecified essential hypertension BMI 50.0-59.9, adult ([facility]/HCC) Mixed hyperlipidemia ([facility]/HCC) Mixed hyperlipidemia Recurrent major depressive disorder, in partial remission (HCC) ([facility]) Type 2 diabetes mellitus with hyperglycemia, with long-term current use of insulin (CMS/HCC) Pre-op examination- Primary documented in this encounter [facility]* Diagnosis Wellness examination- Primary Encounter for screening mammogram for malignant neoplasm of breast Heart murmur, systolic Preoperative clearance Unspecified pre-operative examination Primary hypertension (CMS/HCC) Unspecified essential hypertension BMI 50.0-59.9, adult (CMS/HCC) Mixed hyperlipidemia (CMS/HCC) Mixed hyperlipidemia Recurrent major depressive disorder, in partial remission (HCC) ([facility]/HCC) Type 2 diabetes mellitus with hyperglycemia, with [...] major depressive disorder, in partial remission (HCC) ([facility]/HCC) Type 2 diabetes mellitus with hyperglycemia, with long-term current use of insulin (CMS/HCC) Nonrheumatic aortic valve stenosis- Primary Arthritis of left acromioclavicular joint Preoperative clearance Unspecified pre-operative examination Primary hypertension (CMS/HCC) Unspecified essential hypertension Malignant neoplasm of endometrium (CMS/HCC) Malignant neoplasm of corpus uteri, except isthmus Stage 3a chronic kidney disease (HCC) (CMS/HCC) BMI 50.0-59.9, adult (CMS/HCC) documented in this encounter [facility] HealthcareEvaluation note* Diagnosis Wellness examination- Primary Encounter for screening mammogram for malignant neoplasm of breast Heart murmur, systolic Preoperative clearance Unspecified pre-operative examination Primary hypertension (CMS/HCC) Unspecified essential hypertension BMI 50.0-59.9, adult (CMS/HCC) Mixed hyperlipidemia (CMS/HCC) Mixed hyperlipidemia Recurrent major depressive disorder, in partial remission (HCC) ([facility]/HCC) Type 2 diabetes mellitus with hyperglycemia, with long-term current use of insulin (CMS/HCC) Primary hypertension (CMS/HCC) Unspecified essential hypertension documented in this encounter [facility]* Diagnosis Wellness examination- Primary Encounter for screening mammogram for malignant neoplasm of breast Heart murmur, systolic Preoperative clearance Unspecified pre-operative examination Primary hypertension (CMS/HCC) Unspecified essential hypertension BMI 50.0-59.9, adult ([facility]) Mixed hyperlipidemia ([facility]/HCC) Mixed hyperlipidemia Recurrent major depressive disorder, in partial remission (HCC) ([facility]) Type 2 diabetes mellitus with hyperglycemia, with long-term current use of insulin ([facility]) S/P arthroscopy of right shoulder- Primary documented in this encounter [facility]* Diagnosis Wellness examination- Primary Encounter for screening mammogram for malignant neoplasm of breast Heart murmur, systolic Preoperative clearance Unspecified pre-operative examination Primary hypertension ([facility]/HCC) Unspecified essential hypertension BMI 50.0-59.9, adult ([facility]) Mixed hyperlipidemia ([facility]/HCC) Mixed hyperlipidemia Recurrent major depressive disorder, in partial remission (HCC) ([facility]) Type 2 diabetes mellitus with hyperglycemia, with long-term current use of insulin ([facility]) S/P arthroscopy of right shoulder- Primary documented in this encounter [facility]* Diagnosis Wellness examination- Primary Encounter for screening mammogram for malignant neoplasm of breast Heart murmur, systolic Preoperative clearance Unspecified pre-operative examination Primary hypertension Unspecified essential hypertension BMI 50.0-59.9, adult ([facility]) Mixed hyperlipidemia Mixed hyperlipidemia Recurrent major depressive disorder, in partial remission Type 2 diabetes mellitus with hyperglycemia, with long-term current use of insulin ([facility]) Acute pain of right shoulder- Primary Acute pain of right knee Primary hypertension Unspecified essential hypertension documented in this encounter [facility]* Diagnosis Wellness examination- Primary Encounter for screening mammogram for malignant neoplasm of breast Heart murmur, systolic Preoperative clearance Unspecified pre-operative examination Primary hypertension Unspecified essential hypertension BMI 50.0-59.9, adult ([facility]) Mixed hyperlipidemia Mixed hyperlipidemia Recurrent major depressive disorder, in partial remission Type 2 diabetes mellitus with hyperglycemia, with long-term current use of insulin ([facility]) S/P arthroscopy of right shoulder- Primary documented in this encounter [facility]* Diagnosis Wellness examination- Primary Encounter for screening mammogram for malignant neoplasm of breast Heart murmur, systolic Preoperative clearance Unspecified pre-operative examination Primary hypertension Unspecified essential hypertension BMI 50.0-59.9, adult ([facility]) Mixed hyperlipidemia Mixed hyperlipidemia Recurrent major depressive disorder, in partial remission Type 2 diabetes mellitus with hyperglycemia, with long-term current use of insulin ([facility]) Encounter for wellness examination- Primary Primary hypertension Unspecified essential hypertension Type 2 diabetes mellitus with hyperglycemia, with long-term current use of insulin ([facility]) History of uterine cancer Personal history of malignant neoplasm of other parts of uterus Morbid obesity ([facility]) Morbid obesity Mixed hyperlipidemia Mixed hyperlipidemia Encounter for screening mammogram for malignant neoplasm of breast Encounter for immunization Left hip pain Pain in joint, pelvic region and thigh Recurrent major depressive disorder, in partial remission 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 ([facility]) Chronic kidney disease, stage 2 (mild) Chronic pain disorder Chronic pain syndrome documented in this encounter [facility] HealthcareEvaluation note* Diagnosis Wellness examination- Primary Encounter for screening mammogram for malignant neoplasm of breast Heart murmur, systolic Preoperative clearance Unspecified pre-operative examination Primary hypertension Unspecified essential hypertension BMI 50.0-59.9, adult ([facility]) Mixed hyperlipidemia Mixed hyperlipidemia Recurrent major depressive disorder, in partial remission Type 2 diabetes mellitus with hyperglycemia, with long-term current use of insulin ([facility]) Encounter for wellness examination- Primary Primary hypertension Unspecified essential hypertension Type 2 diabetes mellitus with hyperglycemia, with long-term current use of insulin ([facility]) History of uterine cancer Personal history of malignant neoplasm of other parts of uterus Morbid obesity ([facility]) Morbid obesity Mixed hyperlipidemia Mixed hyperlipidemia Encounter for screening mammogram for malignant neoplasm of breast Encounter for immunization Left hip pain Pain in joint, pelvic region and thigh Recurrent major depressive disorder, in partial remission group home (current) use of insulin ([facility]) Chronic kidney disease, stage 2 (mild) Chronic pain disorder Chronic pain syndrome Left leg cellulitis- Primary documented in this encounter [facility] HealthcareEvaluation note* Diagnosis Wellness examination- Primary Encounter for screening mammogram for malignant neoplasm of breast Heart murmur, systolic Preoperative clearance Unspecified pre-operative examination Primary hypertension Unspecified essential hypertension BMI 50.0-59.9, adult ([facility]) Mixed hyperlipidemia Mixed hyperlipidemia Recurrent major depressive disorder, in partial remission Type 2 diabetes mellitus with hyperglycemia, with long-term current use of insulin ([facility]) Encounter for wellness examination- Primary Primary hypertension Unspecified essential hypertension Type 2 diabetes mellitus with hyperglycemia, with long-term current use of insulin ([facility]) History of uterine cancer Personal history of malignant neoplasm of other parts of uterus Morbid obesity ([facility]) Morbid obesity Mixed hyperlipidemia Mixed hyperlipidemia Encounter for screening mammogram for malignant neoplasm of breast Encounter for immunization Left hip pain Pain in joint, pelvic region and thigh Recurrent major depressive disorder, in partial remission group home (current) use of insulin (HCC) Chronic kidney disease, stage 2 (mild) Chronic pain disorder Chronic pain syndrome Acute left-sided low back pain with left-sided sciatica- Primary documented in this encounter [facility] HealthcareHistory general Narrative - Reported* Type Description Date Medical History RSD Medical History fibromyalgia Medical History hypertension Medical History type II diabetes Surgical History C section X3 Surgical History rotator cuff tear repair Surgical History back surgery x3 Surgical History knee surgery Surgical History hysteroscopy 4/14 Surgical History c5-c6 plates & screws Surgical History D&C 05/30 Hospitalization History see above [facility] Narrative - Reported* Type Description Date [...] replacement, Left 12/2020 Hospitalization History see above [facility] Other [facility] Narrative - Reported* Type Description Date Medical History fibromyalgia Medical History hypertension Medical History type II diabetes Surgical History C section X3 Surgical History rotator cuff tear repair Surgical History back surgery x3 Surgical History knee surgery Surgical History hysteroscopy 14 Surgical History c5-c6 plates & screws Surgical History D&C 05/30 Surgical History knee replacement, Left 12/2020 Hospitalization History see above [facility] Other [facility] Narrative - Reported* Type Description Date [...] bilatera l 2021 Hospitalization History see above [facility] Other [facility] Narrative - Reported* Type Description Date [...] Hospitalization History see above Hospitalization History [facility]- Flu 02/2022 [facility] Other History general Narrative - Reported* Type [...] Hospitalization History see above Hospitalization History [facility]- Flu 02/2022 [facility] Other History general Narrative - Reported[place]ort [employer] Other InstructionsNot on filedocumented in this encounter [facility] filedocumented in this encounter [facility] SystemReason for referral (narrative)No reason for referral information [facility] Work Phone: Reason for visit Narrative* Consultation (Routine) - Authorized Specialty Diagnoses / Procedures Referred By Contac t Referred To Contact Physical Therapy Diagnoses Biceps tendinitis, right Procedures MT OFFICE/OUTPATIENT NEW HIGH MDM 60 MINUTES Jr. Rica Rodriguez, DO [address] [place] [address] Phone: tel: fax: Sean Tineo, PT [address] [place] [address] Phone: tel: fax: Referral ID Status Reason Start Date Expiration Date Visits Requested Visits Authorized [id number] Authorized Consult and Treat 03/16/2024 09/12/2024 6 [...] Admit Date Dietary counseling and surveillance Baljit fabrice 2023 9:39am Encounter for long-term (current) insuli n use December 30, 2023 9:39am Hyperlipemia December 30, 2023 9:39am Hypertension December 30, 2023 9:39am Type 2 diabetes mellitus with hyperglyce bobby December 30, 2023 9:39am Vitamin D deficiency, unspecified Novem er 2023 9:39am Chief Complaint DM M54.16 [...] D deficiency, unspecified May 25, 2024 9:32am Chief Complaint Admit Date lumbar stenosis w/ neuro claudication Se ptember 2024 8:13am Reason for Referral Reason EMG bilat lower extr emities Diagnosis 1 BMI 50.0-59.9, adult (Z68.43) Referral Organization [facility] Referring Provider First Name Martine Referring Provider Last Name Tobias Referring Provider Specialty Nurse Pract itchuck Referred Organization [facility] Referred Address [address] [place], [place],[address] Referred Provider Specialty Neurology Referral Priority Routine Reason evaluate and treat - tremors Diagnosis 1 BMI 50.0-59.9, adult (Z68.43) Referral Organization [facility] Referring Provider First Name Martine Referring Provider Last Name Tobias Referring Provider Specialty Nurse Pract itghulamr Referred Organization [facility] Referred Address [address] [facility] [place] [place], [place],[address] Referred Provider Specialty Neurology Referral Priority Routine Reason Evaluate and treat - osteoporosis Diagnosis 1 BMI 50.0-59.9, adult (Z68.43) Referral Organization [facility] Referring Provider First Name Martine Referring Provider Last Name Tobias Referring Provider Specialty Nurse Pract itioner Referred Organization [facility] Referred Provider Jennifer Siu Referred Address [address] [facility] [place] [place] [place],[address] Referred Provider Specialty Nurse Pracphilipp tioneomayra Referral Priority Routine Additional Source Comments INFORMATION SOURCE (unrecogn ized section and content) DATE CREATED AUTHOR 08/12/2017 [facility] DATE CREATED AUTHOR AUTHOR'S ORGANIZ ATION 07/02/2022 [facility] DATE CREATED AUTHOR AUTHOR'S ORGANIZ ATION 05/31/2023 [facility] DATE CREATED AUTHOR AUTHOR'S ORGANIZ ATION 06/04/2023 [facility] DATE CREATED AUTHOR AUTHOR'S ORGANIZ ATION 06/30/2023 [facility] DATE CREATED AUTHOR AUTHOR'S ORGANIZ ATION 04/12/2024 [facility] DATE CREATED AUTHOR AUTHOR'S ORGANIZ ATION 06/25/2024 [facility] DATE CREATED AUTHOR AUTHOR'S ORGANIZ ATION 09/09/2024 [facility] DATE CREATED AUTHOR AUTHOR'S ORGANIZ ATION 09/27/2024 [facility] DATE CREATED AUTHOR AUTHOR'S ORGANIZ ATION 11/02/2024 [facility] REASON FOR VISIT (unrecogniz ed section and content) Specialty Diagnoses / Procedures Referred By Contac t Referred To Contact Diagnoses Abnormal stress test Abnormal stress test [R94.39] Procedures MT CATH PLMT L HRT & ARTS W/NJX & ANGIO IMG S&I MT CATH PLMT L HRT & ARTS W/NJX & ANGIO IMG S&I Left heart cath / [place] [address] [facility] [address] [place] [address] [facility] [address] [place] [address] Referral ID Status Reason Start Date Expiration Date Visits Re quested Visits Authorized [id number] 1 1 Reason Comments Pain Reason Onset Date Comments Med Refill 12/06/2023 Reason Comments Pain Reason Onset Date Comments Med Refill 01/11/2024 Reason Comments URI Reason Comments Follow-up Reason Onset Date Comments MRI Concerns 03/02/2024 Reason Comments Leg Swelling Reason Comments Med Refill Reason Comments Follow-up Reason Onset Date Comments Procedure 06/04/2023 Out of network Reason Comments New Patient Reason Comments IPK Lesion Leslijaqui Clay 64yo patient presents with Left foot [...] Active Member Role Status Dates Judith Patel , Primary Care Provider Active Team Status: Inactive Member Role Status Dates [facility] Attending Provider Active Judith Patel , Primary Care Provider Active Team Status: [...] Active Start: 2023 End: May 22, 2023 Set Up Mold Technician Relationship Specialty Start Date End Date Pastora Kohler APRN - DIRECTOR CONSTRUCTION SERVICES [address] [place] [address] PCP - General Nurse Practitioner Edward P. [...] September 23, 2023 End: September 23, 2023 Set Up Mold Technician Relationship Specialty Start Date End Date Jennifer Cabrera MD [address] [place] [address] PCP - General Family Medicine 04/10/23 Pastora Kohler NP [address] [place] [address] PCP - [facility] 02/16/23 03/18/80 Pastora Kohler NP [address] [place] [address] Nurse Practitioner Family Medicine 04/10/23 Set Up Mold Technician Relationship Specialty Start Date End Date Jennifer Cabrera MD [address] [place] [address] PCP - General Family Medicine 04/10/23 Pastora Kohler NP [address] [facility] [place] [address] PCP - [facility] 02/16/23 03/18/80 Pastora Kohler NP [address] [place] [address] Nurse Practitioner Family Medicine 04/10/23 Set Up Mold Technician Relationship Specialty Start Date End Date Jennifer Cabrera MD [address] [place] [address] PCP - General Family Medicine 04/10/23 Pastroa Kohler NP [address] [place] [address] PCP - [facility] 02/16/23 03/18/80 Pastora Kohler NP [address] [place] [address] Nurse Practitioner Family Medicine 04/10/23 Set Up Mold Technician Relationship Specialty Start Date End Date Jennifer Cabrera MD [address] [place] [address] PCP - General Family Medicine 04/10/23 Pastora Kohler NP [address] [place] [address] PCP - [facility] 02/16/23 03/18/80 Pastora Kohler NP [address] [place] [address] Nurse Practitioner Family Medicine 04/10/23 Set Up Mold Technician Relationship Specialty Start Date End Date Jennifer Cabrera MD [address] [place] [address] PCP - General Family Medicine 04/10/23 Pastora Kohler NP [address] [place] [address] PCP - [facility] 02/16/23 03/18/80 Pastora Kohler NP [address] [place] [address] Nurse Practitioner Family Medicine 04/10/23 Team Status: [...] December 30, 2023 End: December 30, 2023 Set Up Mold Technician Relationship Specialty Start Date End Date Jennifer Cabrera MD [address] [place] [address] PCP - General Family Medicine 04/10/23 Pastora Kohler NP [address] [place] [address] PCP - [facility] 02/16/23 03/18/80 Pastora Kohler NP [address] [place] [address] Nurse Practitioner Family Medicine 04/10/23 Set Up Mold Technician Relationship Specialty Start Date End Date Jennifer Cabrera MD [address] [place] [address] PCP - General Family Medicine 04/10/23 Pastora Kohler NP [address] [place] [address] PCP - [facility] 02/16/23 03/18/80 Pastora Kohler NP [address] [place] [address] Nurse Practitioner Family Medicine 04/10/23 Set Up Mold Technician Relationship Specialty Start Date End Date Jennifer Cabrera MD [address] [place] [address] PCP - General Family Medicine 04/10/23 Pastora Kohler NP [address] [place] [address] PCP - [facility] 02/16/23 03/18/80 Pastora Kohler NP [address] [place] [address] Nurse Practitioner Family Medicine 04/10/23 Set Up Mold Technician Relationship Specialty Start Date End Date Jennifer Cabrera MD [address] [place] [address] PCP - General Family Medicine 04/10/23 Pastora Kohler SENIOR DATASTAGE DEVELOPER [address] [place] [address] PCP - [facility] 02/16/23 03/18/80 Pastora Kohler NP [address] [place] [address] Nurse Practitioner Family Medicine 04/10/23 Set Up Mold Technician Relationship Specialty Start Date End Date Jennifer Cabrera MD [address] [place] [address] PCP - General Family Medicine 04/10/23 Pastora Kohler NP [address] [place] [address] PCP - [facility] 02/16/23 03/18/80 Pastora Kohler NP [address] [place] [address] Nurse Practitioner Family Medicine 04/10/23 Set Up Mold Technician Relationship Specialty Start Date End Date Jennifer Cabrera MD [address] [place] [address] PCP - General Family Medicine 04/10/23 Pastora Kohler NP [address] [place] [address] PCP - [facility] 02/16/23 03/18/80 Pastora Kohler NP [address] [place] [address] Nurse Practitioner Family Medicine 04/10/23 Set Up Mold Technician Relationship Specialty Start Date End Date Jennifer Cabrera MD [address] [place] [address] PCP - General Family Medicine 04/10/23 Pastora Kohler NP [address] [place] [address] PCP - [facility] 02/16/23 03/18/80 Pastora Kohler NP [address] [place] [address] Nurse Practitioner Family Medicine 04/10/23 Set Up Mold Technician Relationship Specialty Start Date End Date Jennifer Cabrera MD [address] [place] [address] PCP - General Family Medicine 04/10/23 Pastora Kohler NP [address] [facility] [place] [address] PCP - [facility] 02/16/23 03/18/80 Pastora Kohler NP [address] [facility] [place] [address] Nurse Practitioner Family Medicine 04/10/23 Team Status: [...] March 10, 2024 End: March 10, 2024 Set Up Mold Technician Relationship Specialty Start Date End Date Jennifer Cabrera MD [address] [place] [address] PCP - General Family Medicine 04/10/23 Pastora Kohler NP [address] [place] [address] PCP - [facility] 02/16/23 03/18/80 Pastora Kohler NP [address] [facility] [place] [address] Nurse Practitioner Family Medicine 04/10/23 Set Up Mold Technician Relationship Specialty Start Date End Date Jennifer Cabrera MD [address] [place] [address] PCP - General Family Medicine 04/10/23 Pastora Kohler SENIOR DATASTAGE DEVELOPER [address] [place] [address] PCP - [facility] 02/16/23 03/18/80 Pastora Kohler NP [address] [place] [address] Nurse Practitioner Family Medicine 04/10/23 Set Up Mold Technician Relationship Specialty Start Date End Date Jennifer Cabrera MD [address] [place] [address] PCP - General Family Medicine 04/10/23 Pastora Kohler, SENIOR DATASTAGE DEVELOPER [address] [place] [address] PCP - [facility] 02/16/23 03/18/80 Pastora Kohler NP [address] [place] [address] Nurse Practitioner Family Medicine 04/10/23 Set Up Mold Technician Relationship Specialty Start Date End Date Judith Patel DO [address] [place] [address] PCP - General Family Medicine 02/19/22 Set Up Mold Technician Relationship Specialty Start Date End Date Judith Patel DO [address] [place] [address] PCP - General Family Medicine 02/19/22 Set Up Mold Technician Relationship Specialty Start Date End Date Jennifer Cabrera MD [address] [place] [address] PCP - General Family Medicine 04/10/23 Pastora Kohler NP [address] [place] [address] PCP - [facility] 02/16/23 03/18/80 Pastora Kohler NP [address] [place] [address] Nurse Practitioner Family Medicine 04/10/23 Set Up Mold Technician Relationship Specialty Start Date End Date Jennifer Cabrera MD [address] [place] [address] PCP - General Family Medicine 04/10/23 Pastora Kohler NP [address] [place] [address] PCP - [facility] 02/16/23 03/18/80 Pastora Kohler NP [address] [place] [address] Nurse Practitioner Family Medicine 04/10/23 Set Up Mold Technician Relationship Specialty Start Date End Date Jennifer Cabrera MD [address] [place] [address] PCP - General Family Medicine 04/10/23 Pastora Kohler NP [address] [place] [address] PCP - [facility] 02/16/23 03/18/80 Pastora Kohler NP [address] [facility] [place] [address] Nurse Practitioner Family Medicine 04/10/23 Set Up Mold Technician Relationship Specialty Start Date End Date Jennifer Cabrera MD [address] [facility] [place] [address] PCP - General Family Medicine 04/10/23 Pastora Kohler NP [address] [facility] [place] [address] PCP - [facility] 02/16/23 03/18/80 Pastora Kohler NP [address] [facility] [place] [address] Nurse Practitioner Family Medicine 04/10/23 Set Up Mold Technician Relationship Specialty Start Date End Date Jennifer Cabrera MD [address] [facility] [place] [address] PCP - General Family Medicine 04/10/23 Pastora Kohler NP [address] [facility] [place] [address] PCP - [facility] 02/16/23 03/18/80 Pastora Kohler NP [address] [facility] [place] [address] Nurse Practitioner Family Medicine 04/10/23 Team Status: Inactive Member Role Status Dates Pastora Kohler NP-C Primary Care Provider Activ e Start: May 25, 2024 End: May 25, 2024 Lili Burgos APRN Attending Provider Active Start: May 25, 2024 End: May 25, 2024 Team Status: Inactive Member Role Status Dates iLli Burgos APRN Attending Provider Active Start: May 25, 2024 End: May 25, 2024 Set Up Mold Technician Relationship Specialty Start Date End Date Jennifer Cabrera MD [address] [place] [address] PCP - General Family Medicine 04/10/23 Pastora Kohler SENIOR DATASTAGE DEVELOPER [address] [place] [address] PCP [facility] 02/16/23 03/18/80 Pastora Kohler SENIOR DATASTAGE DEVELOPER [address] [place] [address] Nurse Practitioner Family Medicine 04/10/23 Set Up Mold Technician Relationship Specialty Start Date End Date Jennifer Cabrera MD [address] [place] [address] PCP - General Family Medicine 04/10/23 Pastora Kohler SENIOR DATASTAGE DEVELOPER [address] [place] [address] PCP [facility] 02/16/23 03/18/80 Pastora Kohler SENIOR DATASTAGE DEVELOPER [address] [place] [address] Nurse Practitioner Family Medicine 04/10/23 Set Up Mold Technician Relationship Specialty Start Date End Date Jennifer Cabrera MD [address] [place] [address] PCP - General Family Medicine 04/10/23 Pastora Kohler NP [address] [place] [address] PCP - [facility] 02/16/23 03/18/80 Pastora Kohler NP [address] [place] [address] Nurse Practitioner Family Medicine 04/10/23 Set Up Mold Technician Relationship Specialty Start Date End Date Jennifer Cabrera MD [address] [place] [address] PCP - General Family Medicine 04/10/23 Pastora Kohler NP [address] [place] [address] PCP - [facility] 02/16/23 03/18/80 Pastora Kohler NP [address] [place] [address] Nurse Practitioner Family Medicine 04/10/23 Set Up Mold Technician Relationship Specialty Start Date End Date Jennifer Cabrera MD [address] [place] [address] PCP - General Family Medicine 04/10/23 Pastora Kohler NP [address] [place] [address] PCP - [facility] 02/16/23 03/18/80 Pastora Kohler NP [address] [place] [address] Nurse Practitioner Family Medicine 04/10/23 Set Up Mold Technician Relationship Specialty Start Date End Date Jennifer Cabrera MD [address] [place] [address] PCP - General Family Medicine 04/10/23 Pastora Kohler NP [address] [place] [address] PCP - [facility] 02/16/23 03/18/80 Pastora Kohler NP [address] [place] [address] Nurse Practitioner Family Medicine 04/10/23 Set Up Mold Technician Relationship Specialty Start Date End Date Jennifer Cabrera MD [address] [place] [address] PCP - General Family Medicine 04/10/23 Pastora Kohler SENIOR DATASTAGE DEVELOPER [address] [place] [address] PCP - [facility] 02/16/23 03/18/80 Pastora Kohler SENIOR DATASTAGE DEVELOPER [address] [place] [address] Nurse Practitioner Family Medicine 04/10/23 Set Up Mold Technician Relationship Specialty Start Date End Date Jennifer Cabrera MD [address] [place] [address] PCP - General Family Medicine 04/10/23 Pastora Kohler NP [address] [place] [address] PCP - [facility] 02/16/23 03/18/80 Pastora Kohler NP [address] [place] [address] Nurse Practitioner Family Medicine 04/10/23 Set Up Mold Technician Relationship Specialty Start Date End Date Jennifer Cabrera MD [address] [place] [address] PCP - General Family Medicine 04/10/23 Pastora Kohler NP [address] [place] [address] PCP - [facility] 02/16/23 03/18/80 Pastora Kohler NP [address] [facility] [place] [address] Nurse Practitioner Family Medicine 04/10/23 Set Up Mold Technician Relationship Specialty Start Date End Date Jennifer Cabrera MD [address] [place] [address] PCP - General Family Medicine 04/10/23 Pastora Kohler NP [address] [place] [address] PCP - [facility] 02/16/23 03/18/80 Pastora Kohler NP [address] [place] [address] Nurse Practitioner Family Medicine 04/10/23 Team Status: Active Member Role Status Dates Kaya Tomlinson RN Attending Provider Active Start: August 30, 2024 Team Status: Inactive Member Role Status Dates Shama Allen NP-C Attending Provider Active St art: October 31, 2024 End: October 31, 2024 [facility] Galvez Primary Care Provider Activ e Start: October 31, 2024 End: October 31, 2024 Goals (unrecognized section and content) Goals may [...] 1119 (New Bag - Prov ider: Gladys Frias, WENDY) 0.9 % sodium chloride infusion IntraVENous, at 75 mL/hr, CONTINUOUS, Starting on Thu06/30/23 at 1300, For 66 hours, Recovery(Cath) 1239 (New Bag - Prov ider: Katja Armando, RN)1455 (Stopped - Provider: Tabatha Ledezma RN) [...] PRN, Starting on Thu06/30/23 at 1227, Until e 06/30/23 at 1229, Intra-procedure(Cath) 1227 (Given - [...] BE BASED ON THE PRIMARY CLINICAL RECORDS. [email or web address] provides no warranty or guarantee of the accuracy or completeness of information in this document.
--- NOTE | 2024-11-03 11:40 | PM.CN ---
Consult Note: HPI Data of Consult Patient: known to practice within the last 3 years Consult date: 11/03/24 Requesting Physician: Shama Allen NP Primary Care Provider: [facility] Consult Narrative Reason for consult: low back and LLE pain Narrative: Lesli Clay a pleasant 64 year old female presents for evaluation and management of chronic low back pain and bilateral hip/buttock pain and left knee pain. Today pain 4/10 increasing to 8/10 with activity. Patient reports aching, pressure, burning. Patient finding benefit to current medication regimen without side effects. She has failed to benefit from lumbar facet MBBs, and caudal ESIs. At previous visits we discussed SCS trial but she has not been interested in. recently underwent lumbar MRI consistent with stenosis at L4,5,S1 and degenerative changes. cc:: CC: Shama Allen NP Review of Systems ROS Musculoskeletal Reports: back pain, extremity pain and joint pain PFSH PFSH Medical History Pelvic pain ?R10.2 - Pelvic and perineal pain (ICD-10) Post-menopausal bleeding ?N95.0 - Postmenopausal bleeding (ICD-10) Fibromyalgia ?M79.7 - Fibromyalgia (ICD-10) Arthritis ?M19.90 - Unspecified osteoarthritis, unspecified site (ICD-10) Neck pain ?M54.2 - Cervicalgia (ICD-10) Back pain ?M54.9 - Dorsalgia, unspecified (ICD-10) Depression ?F32.A - Depression, unspecified (ICD-10) Panic attacks ?F41.0 - Panic disorder [episodic paroxysmal anxiety] (ICD-10) COVID-19 ?U07.1 - COVID-19 (ICD-10) Dyspnea on exertion ?R06.09 - Other forms of dyspnea (ICD-10) High cholesterol ?E78.00 - Pure hypercholesterolemia, unspecified (ICD-10) Diabetes ?E11.9 - Type 2 diabetes mellitus without complications (ICD-10) Delayed recovery from anesthesia Anesthesia complication ?T88.59XA - Other complications of anesthesia, initial encounter (ICD-10) Postmenopausal ?Z78.0 - Asymptomatic menopausal state (ICD-10) RSD (reflex sympathetic dystrophy) ?G90.50 - Complex regional pain syndrome I, unspecified (ICD-10) Low back pain ?M54.50 - Low back pain, unspecified (ICD-10) Osteoarthritis ?M19.90 - Unspecified osteoarthritis, unspecified site (ICD-10) Shingles ?B02.9 - Zoster without complications (ICD-10) Anxiety ?F41.9 - Anxiety disorder, unspecified (ICD-10) Obesity ?E66.9 - Obesity, unspecified (ICD-10) Heartburn ?R12 - Heartburn (ICD-10) Acid reflux ?K21.9 - Gastro-esophageal reflux disease without esophagitis (ICD-10) Diabetes 1.5, managed as type 2 ?E13.9 - Other specified diabetes mellitus without complications (ICD-10) Hypercholesterolemia ?E78.00 - Pure hypercholesterolemia, unspecified (ICD-10) Hypertension ?I10 - Essential (primary) hypertension (ICD-10) Surgical History S/P epidural steroid injection ?Z92.241 - Personal history of systemic steroid therapy (ICD-10) History of carpal tunnel release ?Z98.890 - Other specified postprocedural states (ICD-10) History of arthroplasty of knee ?Z96.659 - Presence of unspecified artificial knee joint (ICD-10) History of fusion of cervical spine ?Z98.1 - Arthrodesis status (ICD-10) H/O hemorrhoidectomy ?Z98.890 - Other specified postprocedural states (ICD-10) History of delivery ?Z98.891 - History of uterine scar from previous surgery (ICD-10) Hx of arthroscopy of knee ?Z98.890 - Other specified postprocedural states (ICD-10) H/O repair of rotator cuff ?Z98.890 - Other specified postprocedural states (ICD-10) H/O dilation and curettage ?Z98.890 - Other specified postprocedural states (ICD-10) History of hysteroscopy ?Z98.890 - Other specified postprocedural states (ICD-10) H/O lumbar discectomy ?Z98.890 - Other specified postprocedural states (ICD-10) History of lumbar laminectomy ?Z98.890 - Other specified postprocedural states (ICD-10) S/P trigger finger release ?Z98.890 - Other specified postprocedural states (ICD-10) Family History Other Family history of heart disease Family history of hypertension Family history of myocardial infarction Social History Within the past year, how often did you have a drink containing alcohol: never Score interpretation: A score less than 3 is consistent with normal alcohol consumption. Smoking status: Former smoker Non-prescribed substance use: denies use Highest level of school completed/degree received: high school graduate Meds Home Medications and Allergies Home Medications ?Medication ?Instructions ?Recorded ?Confirmed ?Type atorvastatin 40 mg tablet 40 mg PO QDAY 07/16/22 06/02/23 History bupropion HCl 300 mg 24 hr tablet, 300 mg PO QDAY 07/16/22 06/02/23 History extended release (Wellbutrin XL) metoprolol tartrate 25 mg tablet 25 mg PO BID 07/16/22 06/02/23 History tizanidine 4 mg capsule (Zanaflex) 4 mg PO Q12H 07/16/22 06/02/23 History aripiprazole 15 mg tablet (Abilify) 15 mg PO DAILY 05/12/23 06/02/23 History insulin degludec 100 unit/mL (3 48 unit subcut DAILY 05/12/23 06/02/23 History mL) subcutaneous pen (Tresiba FlexTouch U-100 insulin) losartan 50 mg-hydrochlorothiazide 1 tab PO DAILY 05/12/23 06/02/23 History 12.5 mg tablet (Hyzaar) semaglutide 2 mg/dose (8 mg/3 mL) 2 mg subcut QWEEK 05/12/23 06/02/23 History subcutaneous pen injector (Ozempic) hydroxyzine pamoate 25 mg capsule 25 mg PO QID PRN anxiety 08/06/23 08/06/23 History nortriptyline 50 mg capsule 50 mg PO DAILY 08/06/23 08/06/23 History naloxone 4 mg/actuation nasal 4 mg intranasal Q2M PRN opioid 02/03/24 Rx spray (Narcan) overdose #2 ea pregabalin 100 mg capsule (Lyrica) 100 mg PO TID #90 caps 08/22/24 Rx oxycodone-acetaminophen 7.5 mg-325 1 tab PO TID PRN pain #90 tabs 08/31/24 Rx mg tablet (Percocet) tizanidine 4 mg tablet 4 mg PO BID PRN muscle spasticity 10/03/24 Rx #60 tabs tizanidine 4 mg tablet 4 mg PO BID PRN muscle spasticity 10/03/24 Rx #60 tabs pregabalin 100 mg capsule (Lyrica) 100 mg PO TID #90 caps 10/31/24 Rx Allergies Allergy/AdvReac Type Severity Reaction Status Date / Time No Known Drug Allergies Allergy Verified 06/02/23 06:58 Exam Narrative Exam Narrative: diffuse pain Constitutional Documenting provider has reviewed patient's vital signs: yes Common normals: no apparent distress, oriented x3, healthy appearing, alert and well nourished General appearance: cooperative HENMT Common normals: normocephalic, hearing grossly normal bilaterally and moist oral mucous membranes Head and scalp: normocephalic Eye Common normals: PERRL Pupil: PERRL Neck & C-Spine Common normals: full ROM General: normal visual inspection Chest Common normals: inspection of chest normal Respiratory Common normals: normal respiratory effort, no retractions and no use of accessory muscles Back & Pelvis Lumbar spine/lower back: ROM limited, pain with ROM, lumbar spinal tenderness and straight leg raise positive left Sacroiliac joints: SI joint(s) abnormal Other: decreased sensation left L4,5,S1 strength 4/5 in LLE and 5/5 in RLE bilateral SIJ positive paola(patricks), gaenslens, thigh thrust, compression test left > right Neuro Common normals: oriented x3 Sensorium/orientation: alert Psych Common normals: mental status grossly normal, thought process normal, cooperative, affect normal, speech normal and activity/motor behavior normal Speech: normal speech Thought process: normal thought process Results Additional Findings Additional findings: If on a controlled substance or opioids, I have checked an [place] report on this patient and there are no aberrancies noted in the prescribing history.??If on a controlled substance or opioid a drug screen was completed and reviewed within the last year, and if there has not been a drug screen completed we ordered one today to monitor higher risk, state monitored pain medication use. As part of providing excellent, safe, comprehensive care, the following was completed at our patient's visit: 1. A medication reconciliation and review to ensure accurate knowledge of current/active medications, including asking our patients to inform us about any [id number] medications or herbal remedies/nutritional supplements/alternative remedies. 2. A review to specifically ensure our patients have had annual screening for screening for depression, screening for tobacco use, and screening for unhealthy alcohol use. For concerning screenings had a discussion with the patient, provided patient education, and recommended follow-up with primary care provider when appropriate. If patient noted with a risk of falling, they received education on strength, gait, and balance training to prevent future risk of falling. Portions of this note may have been carried over from the previous visit and updated as appropriate. Please note this office utilizes paper charting in addition to the electronic medical record. A list of current medications, vitals, and PMH is available there as the clinical staff outside of myself do not have access to [employer] charting during the clinic day operations. As part of providing quality comprehensive care the current medications, vitals, and PMH were reviewed in the paper chart. Assessment and Plan Assessment and Plan (1) Failed back syndrome: (2) Lumbar stenosis with neurogenic claudication: Assessment and Plan: The patient has had over 3 months of moderate to severe low back and LLE pain with functional impairment and inadequate response to conservative care including NSAIDS (unless there are contraindication such as concurrent blood thinners), multiple oral or topical pain medications, and home exercise program/physical therapy.? Patient has completed >6 weeks of guided home exercise program and/or formal physical therapy program without relief of their symptoms.? The Oswestry Disability Index was completed, and the patient scored a 38%.? (3) Sacroiliitis: (4) Myalgia, other site: (5) Chronic prescription opiate use: (6) Fibromyalgia: Plan left L4-5 L5-S1 TFESI under fluoroscopy defer NS consultation at this time, previously evaluated by Dr Turner in 2022 who deemed her non surgical f/u with pcp regarding frequent falls continue current medications, risks vs benefits reviewed. pt continues to report moderate pain relief for 4 hours after utilizing percocet. denies side effects from current medication regimen f/u 2 weeks after [facility]
== END 2024-11-03 10:53 | disposition home or self-care (01) ==
LOC: PM 10:52
PROVIDERS: Visit Provider Nurse Practitioner
DX: M48.062 Spinal stenosis, lumbar region with neurogenic claudication (principal); M96.1 Postlaminectomy syndrome, not elsewhere classified; M46.1 Sacroiliitis, not elsewhere classified; M79.7 Fibromyalgia; Z79.891 Long term (current) use of opiate analgesic; M79.18 Myalgia, other site
CPT/HCPCS: G0463

== ENCOUNTER 2024-11-28 09:39 | Day surgery (SDC) | payer MEDICARE, SELFPAY ==
--- OUTSIDE RECORDS SUMMARY | 2024-11-17 10:40 | XMS_ITS | Encounter Summary ---
Author Organization [facility] Healthcare Address [address] [place] [address] Care Team Providers Care Ruby Rails Developer Name Role Phone Jennifer Christine MD Primary Care Provider [phone] Pastora Kohler PIANO MACHINE OPERATOR Unavailable [phone] Pastora Kohler PIANO MACHINE OPERATOR Unavailable [phone] Reason for Visit * Reason Comments Sore Throat Cough, congestion st arted last week. Encounter Details Date Type Department Care Team ([facility] st Contact Info) Description 11/17/2024 10:40 AM EDT Office Visit [facility] Family Medicine [address] [place] [address] Jennifer Christine MD [address] [place] [address] Sore throat Social History Tobacco Use Types Packs/Day Years [...] on file documented as of this encounter Last Filed Vital Signs Vital Sign Reading Time Taken Comments Blood Pressure 126/74 11/17/2024 10:49 AM EDT Pulse 82 11/17/2024 10:49 AM EDT Temperature 37 C (98.6 F) 11/17/2024 10:49 AM EDT Respiratory Rate - - Oxygen Saturation 94% 11/17/2024 10:49 AM EDT Inhaled Oxygen Concentration - - Weight 133 kg (294 lb) 11/17/2024 10:49 AM EDT Height 160 cm (5' 3 ) 11/17/2024 10:49 AM EDT Body Mass Index 52.08 11/17/2024 10:49 AM EDT documented in this encounter Progress Notes * Jennifer Christine MD - 11/17/2024 10:40 AM EDT Subjective ?Quick Links Last Note in Specialty Snapshot Edit RFV/CC Edit Screenings Current Meds Patient ID: Lesli Clay is a 64 y.o. female who presents for Sore Throat (Cough, congestion started last week.). HPI History of Present Illness The patient presents for evaluation of a sore throat. She reports experiencing a sore throat, accompanied by phlegm and pain during meals. Her voice has become gravelly. These symptoms began approximately a week ago. She also mentions a mild runny nose and cough but has not experienced any fever or earache. She is uncertain about recent exposure to sick individuals. ?Quick Review Review Full History Edit History Meds - Accu-Chek FastClix Lancets [facility] Accu-Chek Guide test strip amLODIPine (Norvasc) 5 MG tablet ARIPiprazole (Abilify) 15 MG tablet atorvastatin (Lipitor) 40 MG tablet buPROPion XL (Wellbutrin XL) 300 MG 24 hr tablet ergocalciferol (Vitamin D2) 1.25 MG (55888 UT) capsule hydrOXYzine HCl (Atarax) 25 MG tablet insulin degludec (Tresiba) 100 UNIT/ML injection Klayesta 304336 UNIT/GM powder losartan-hydroCHLOROthiazide (Hyzaar) 50-12.5 MG tablet meloxicam (Mobic) 15 MG tablet metFORMIN (Glucophage) 1000 MG tablet metoprolol tartrate (Lopressor) 25 MG tablet nortriptyline (Pamelor) 50 MG capsule oxyCODONE-acetaminophen (Percocet) 5-325 MG tablet pregabalin (Lyrica) 75 MG capsule Semaglutide, 2 MG/DOSE, (Ozempic, 2 MG/DOSE,) 8 MG/3ML solution pen-injector tiZANidine (Zanaflex) 4 MG tablet traMADol (Ultram) 50 MG tablet --- PMH - Abdominal pain Anxiety Cellulitis R foot COVID DENIES BLOODBORNE DX Depression Diabetes (HCC) Endometrial cancer (HCC) GERD (gastroesophageal reflux disease) HTN (hypertension) Hyperlipidemia Osteoarthritis RSD (reflex sympathetic dystrophy) Objective ?Quick Links Add Vitals Timeline (Adult) Labs Imaging Results Review Trend Vitals ?? Avoid pulling in long tables of results. Comment on relevant results to support your medical decision making. BP 126/74 Pulse 82 Temp 98.6 ??F Ht 5' 3 Wt 294 lb SpO2 94% BMI 52.08 kg/m?? Physical Exam Physical Exam General Appearance: Normal. Vital signs: Within normal limits. HEENT: Nose: Normal appearance; Mouth/Throat: Erythematous posterior pharynx. Respiratory: Clear to auscultation, no wheezing, rales or rhonchi. Cardiovascular: regular rate and rhythm with no murmur. Extremities: no edema, palpable pulses. Skin: Warm and dry, no rash. Neurological: Normal. Psychiatric: Normal. ?Quick Links Full Problem List Cardiology CHF Chronic Pain Diabetes GI Hypertension Assessment & Plan Sore throat Reassurance that no need for antibiotics today. Push fluids and rest. Tylenol as needed. OK to use antihistamine as needed as well. Monitor for other signs and symptoms of infection and call for same. If not better after the weekend, call and we will add in antiobiotics. Orders: POCT rapid strep A manually resulted STATUS COVID-19/FLU Assessment & Plan 1. Sore throat: - The patient reports a sore throat with phlegm, pain when eating, and a gravelly voice that started about a week ago. There is no earache or fever, but there is a slight runny nose and cough. - Physical examination reveals redness at the back of the throat. - A swab for strep throat will be conducted. If the strep test is negative, a COVID-19 test will beperformed due to the sore throat symptoms. documented in this encounter Plan of Treatment Upcoming Encounters Date Type Department Care Team (Late st Contact Info) Description 11/29/2024 11:45 AM EDT Ancillary Procedure [facility] [address] [place] [address] documented as of this encounter Procedures Procedure Name Priority Date/Time Associated Diagnosis Comments POCT RAPID STREP A Routine 11/17/2024 11 :46 AM EDT Sore throat STATUS COVID-19/FLU Routine 11/17/2024 1 1:45 AM EDT Sore throat documented in this encounter Results * POCT rapid strep A manually resulted (11/17/2024 11:46 AM EDT) Rapid Strep A Screen Negative Negative, None Detected Swab 11/17/2024 11:4 6 AM EDT us Jennifer Christine MD POINT OF CARE TEST ENTER/EDIT ORDERABLES Final Result * STATUS COVID-19/FLU (11/17/2024 11:45 AM EDT) FLU A negative FLU B negative SARS COV 2 RNA negative Nasopharyngeal 11/17/2024 11 :45 AM EDT Jennifer Christine MD POINT OF CARE TEST ENTER/EDIT ORDERABLES Final Result documented in this encounter Visit Diagnoses Diagnosis Sore throat Acute pharyngitis documented in this encounter Additional Health Concerns Assessment Noted Time PHQ-9 Depression Total Score: 1 08/31/19 25 12:00 PM EDT documented as of this encounter Care Teams Ruby Rails Developer Relationship Specialty Start Date End Date Jennifer Christine MD [address] [place] [address] PCP - General Family Medicine 04/10/23 Pastora Kohler NP [address] [place] [address] PCP - [facility] 02/16/23 03/18/80 Pastora Kohler NP [address] [place], [place] [id number] Nurse Practitioner Family Medicine 04/10/23 documented as of this encounter
--- OUTSIDE RECORDS SUMMARY | 2024-11-21 15:45 | XMS_ITS | Encounter Summary ---
Author Organization [facility] Address [address] [place] [address] Care Team Providers Care Telephone Clerk Telegraph Office Name Role Phone Jennifer Christine MD Primary Care Provider [phone] Pastora Kohler RESEARCH RECRUITER Unavailable [phone] Pastora Kohler RESEARCH RECRUITER Unavailable [phone] Encounter Details Date Type Department Care Team (Latest Contact Info) Description 11/21/2024 3:45 PM EDT Ancillary Procedure [facility] [address] [place] [address] Pain of left femur Social History Tobacco Use Types Packs/Day Years [...] 11/29/2024 11:45 AM EDT Ancillary Procedure [facility] [address] [place] [address] documented as of this encounter Procedures Procedure Name Priority Date/Time Associated Diagnosis Comments XR FEMUR 2+ VW LEFT Routine 11/21/2024 5 :01 PM EDT Pain of left femur documented in this encounter Results * XR femur left 2+ views (11/21/2024 5:01 PM EDT) Anatomical Region Laterality Modality Lower Extremities, Femur Left Radiogr aphic Imaging 11/21/2024 5:03 PM EDT Impressions 11/21/2024 5:04 PM EDT Moderate degenerative change left hip. Left knee arthroplasty. ELECTRONICALLY SIGNED BY: Pj Dang MD Narrative 11/21/2024 5:04 PM EDT Left femur. HISTORY: Chronic pain. No known injury. FINDINGS: Bipolar noncemented left knee replacement. No abnormal lucency bone prosthetic interface. Femoral and tibial components within anatomic alignment. Moderate narrowing left hip joint. No fracture, dislocations, or bone lesions identified. Procedure Note Pj Dang MD - 11/21/2024 Left femur. HISTORY: Chronic pain. No known injury. FINDINGS: Bipolar noncemented left knee replacement. No abnormal lucency boneprosthetic interface. Femoral and tibial components within anatomicalignment. Moderate narrowing left hip joint. No fracture, dislocations,or bone lesions identified. IMPRESSION: Moderate degenerative change left hip. Left knee arthroplasty. ELECTRONICALLY SIGNED BY: Pj Dang MD Pastora Kohler NP IMG XR PROCEDURES Final Result documented in this encounter Visit Diagnoses Diagnosis Pain of left femur documented in this encounter Additional Health Concerns Assessment Noted Time PHQ-9 Depression Total Score: 1 08/31/19 25 12:00 PM EDT documented as of this encounter Care Teams Telephone Clerk Telegraph Office Relationship Specialty Start Date End Date Jennifer Christine MD [address] [place], [place] [id number] PCP - General Family Medicine 04/10/23 Pastora Kohler NP [address] [place] [address] PCP - [facility] 02/16/23 03/18/80 Pastora Kohler NP [address] [place] [address] Nurse Practitioner Family Medicine 04/10/23 documented as of this encounter
--- OUTSIDE RECORDS SUMMARY | 2024-11-21 16:00 | XMS_ITS | Encounter Summary ---
Author Organization [facility] Address [address] [place] [address] Care Team Providers Care Forge Utility Worker Name Role Phone Jennifer Christine MD Primary Care Provider [phone] Pastora Kohler SECURITY INSTALLATION TECHNICIAN Unavailable [phone] Pastora Kohler SECURITY INSTALLATION TECHNICIAN Unavailable Reason for Visit * Reason Comments Leg Pain Encounter Details Date Type Department Care Team ([facility] Contact Info) Description 11/21/2024 4:00 PM EDT Office Visit [facility] Family Medicine [address] [place] [phone] Pastora Kohler SECURITY INSTALLATION TECHNICIAN [address] [place] [address] Need for vaccination (Primary Dx); Pain of left femur Social History Tobacco [...] Sign Reading Time Taken Comments Blood Pressure 144/92 11/21/2024 3:59 PM EDT Pulse 86 11/21/2024 3:59 PM EDT Temperature 36.3 C (97.3 F) 11/21/2024 3:59 PM EDT Respiratory Rate - - Oxygen Saturation 99% 11/21/2024 3:59 PM EDT Inhaled Oxygen Concentration - - Weight 130 kg (286 lb) 11/21/2024 3:59 PM EDT Height - - Body Mass Index 50.66 11/17/2024 10:49 AM EDT documented in this encounter Progress Notes * Pastora Kohler, SECURITY INSTALLATION TECHNICIAN - 11/21/2024 4:00 PM EDT Images from the original note were not included. Subjective ?Quick Links Last Note in Specialty Snapshot Edit RFV/CC Edit Screenings Current Meds Patient ID: Lesli Clay is a 64 y.o. female who presents for Leg Pain. HPI History of Present Illness The patient presents for a knot on her neck. She reports the presence of a knot on the right side of herleg. She first noticed last week. She has not experienced any recent trauma to the area. The knot is sensitive to touch and causes discomfort. She has been experiencing back issues, which have been under treatment. She is scheduled to receive an injection at a pain management clinic next week. It was initially assumed that the knot was related to her back condition. ?Quick Review Review Full History Edit History Meds - Accu-Chek FastClix Lancets [facility] [place] Accu-Chek Guide test strip amLODIPine (Norvasc) 5 MG tablet ARIPiprazole (Abilify) 15 MG tablet atorvastatin (Lipitor) 40 MG tablet buPROPion XL (Wellbutrin XL) 300 MG 24 hr tablet ergocalciferol (Vitamin D2) 1.25 MG (37448 UT) capsule hydrOXYzine HCl (Atarax) 25 MG tablet insulin degludec (Tresiba) 100 UNIT/ML injection Klayesta [id number] UNIT/GM powder losartan-hydroCHLOROthiazide (Hyzaar) 50-12.5 MG tablet [...] results to support your medical decision making. There were no vitals taken for this visit. Review of Systems Constitutional: Negative for chills and fatigue. HENT: Negative for ear discharge, ear pain, rhinorrhea and sore throat. Eyes: Negative for pain and redness. Respiratory: Negative for cough and chest tightness. Cardiovascular: Negative for chest pain and palpitations. Gastrointestinal: Negative for abdominal distention and abdominal pain. Genitourinary: Negative for difficulty urinating and frequency. Musculoskeletal: Negative for arthralgias and gait problem. Skin: Positive for wound (left leg knot ). Neurological: Negative for dizziness and numbness. Endocrine: Negative. Allergic/Immunologic: Negative. Physical Exam Vitals reviewed. Cardiovascular: Rate and Rhythm: Normal rate and regular rhythm. Pulses: Normal pulses. Heart sounds: Normal heart sounds. Pulmonary: Effort: Pulmonary effort is normal. Breath sounds: Normal breath sounds. Musculoskeletal: General: Normal range of motion. Skin: General: Skin is warm and dry. Comments: Left upper leg palpable lump tender to touch Neurological: General: No focal deficit present. Mental Status: She is oriented to person, place, and time. Physical Exam Neck: Tender mass on the right side of the neck Respiratory: Clear to auscultation, no wheezing, rales or rhonchi ?Quick Links Full Problem List Cardiology CHF Chronic Pain Diabetes GI Hypertension Assessment & Plan Pain of left femur Orders: XR femur left 2+ views; Future Assessment & Plan 1. Neck mass: - The patient noticed a knot on the right side of her neck last week. There is no history of trauma, and the area is very sensitive to touch. - An x-ray of the affected area has been ordered to determine if it is a soft tissue injury or a cyst. The results will be communicated tomorrow. 2. Health maintenance: - She will receive her influenza vaccine today. Follow-up: The results of the x-ray will be communicated tomorrow. Diagnoses and all orders for this visit: Need for vaccination - Flu vaccine greater than or equal to 3 years old, preservative free IM Pain of left femur - XR femur left 2+ views; Future documented in this encounter Plan of Treatment Upcoming Encounters Date Type Department Care Team (Late st Contact Info) Description 11/29/2024 11:45 AM EDT Ancillary Procedure [facility] [address] [place] [address] documented as of this encounter Results * XR femur left [...] SIGNED BY: Pj Dang MD Pastora Kohler SECURITY INSTALLATION TECHNICIAN IMG XR PROCEDURES Final Result documented in this encounter Visit Diagnoses Diagnosis Need for vaccination- Primary Need for prophylactic vaccination and inoculation against unspecified single disease Pain of left femur Pain of left femur documented in this encounter Additional Health Concerns Assessment Noted Time PHQ-9 Depression Total Score: 1 08/31/19 25 12:00 PM EDT documented as of this encounter Care Teams Forge Utility Worker Relationship Specialty Start Date End Date Jennifer Christine MD [address] [place] [address] PCP - General Family Medicine 04/10/23 Pastora Kohler NP [address] [place] [address] PCP - [facility] 02/16/23 03/18/80 Pastora Kohler NP [address] [place] [address] Nurse Practitioner Family Medicine 04/10/23 documented as of this encounter
--- OUTSIDE RECORDS SUMMARY | 2024-11-28 09:42 | XMS_ITS | Encounter Summary ---
Author Organization [facility] Healthcare Address [address] [place] [address] Care Team Providers Care Psychiatric Lpn Name Role Phone Jennifer Christine MD Primary Care Provider [phone] Pastora Kohler PLUMBER MAINTENANCE Unavailable Pastora Kohler PLUMBER MAINTENANCE Unavailable [phone] Encounter Details Date Type Department Care Team (Late st Contact Info) Description 08/05/2024 Results Follow-Up [facility] Family Medicine [address] [place] [address] Pastora Kohler NP [address] [place] [address] XR shoulder 2+ views right, [...] 11/29/2024 11:45 AM EDT Ancillary Procedure [facility] [place] [facility] [address] [place] [phone] documented as of this encounter Visit Diagnoses Not on filedocumented in this encounter Care Teams Psychiatric Lpn Relationship Specialty Start Date End Date Jennifer Christine MD [address] [place] [address] PCP - General Family Medicine 04/10/23 Pastora Kohler NP [address] [place] [address] PCP - [facility] 02/16/23 03/18/80 Pastora Kohler NP [address] [place] [address] Nurse Practitioner Family Medicine 04/10/23 documented as of this encounter
--- OUTSIDE RECORDS SUMMARY | 2024-11-28 09:42 | XMS_ITS | Clinical Summary ---
Author Organization [facility] tem Address [id number] [address] [place] [address] Care Team Providers Care Professional Services Manager Name Role Phone Pastora Kohler APRN-SUPERVISOR BLEACH PLANT Primary Care Pro vider Allergies No known [...] pain. Active atorvastatin (LIPITOR) 40 mg tablet 0 Active OZEMPIC 1 mg/dose (2 mg/1.5 mL) pen injector 1 Active oxyCODONE-aceta minophen (PERCOCET) 7.5-325 mg per tablet 3 Active pregabalin (LYRICA) 75 mg capsule Take [...] VITAMIN D2, ORAL Take by mouth. Active hydrOXYzine (VISTARIL) 25 mg capsule Take 1 capsule (25 mg total) by mouth 4 (four) times a day as needed for anxiety. 120 capsule 2 5 Active buPROPion XL (WELLBUTRIN XL) 300 mg 24 hr tabletIndicatio ns:Severe episode of recurrent major depressive disorder, without psychotic features (CMS-HCC) Take 1 tablet (300 mg total) by mouth every morning. 100 tablet 3 5 Active nortriptyline (PAMELOR) 50 mg capsuleIndicati ons:Severe episode of recurrent major depressive disorder, without psychotic features (CMS-HCC) Take 3 capsules (150 mg total) by mouth nightly. 270 capsule 3 5 Active ARIPiprazole (ABILIFY) 15 mg tabletIndicatio ns:Severe episode of recurrent major depressive disorder, without psychotic features (CMS-HCC) Take 1 tablet (15 mg total) by mouth in the morning. 30 tablet 11 5 Active nortriptyline (PAMELOR) 50 mg capsuleIndicati ons:Severe episode of recurrent major depressive disorder, without psychotic features (CMS-HCC) Take 3 capsules (150 mg total) by mouth nightly. 270 capsule 3 4 11/17/19 25 Discontinu ed(Reorder ) ARIPiprazole (ABILIFY) 10 mg tabletIndicatio ns:Severe episode of recurrent major depressive disorder, without psychotic features (CMS-HCC) Take 1 tablet (10 mg total) by mouth in the morning. 90 tablet 3 08/11/202 5 11/17/19 25 Discontinu ed(Reorder ) Active Problems Problem Noted Date Diagnosed Date [...] organization. Date Type Department Care Team Description 11/16/2024 Travel 09/07/2024 6:41 PM EDT - 09/07/2024 8:09 PM EDT Emergency [facility] - Emergency [address] [place] [address] Spike Gutierrez MD Cellulitis of left lower [...] got money to buy more. Never True 11/16/2024 Within the past 12 months th e food we bought just didn't last and we didn't have money to get more. Never True 11/16/2024 Purpose - Life Answer Date Recorded Purpose and direction in life Unknown Comments No Sex and Gender Information Value Date Recorded Sex Assigned at Not on file Legal Sex Female 11:42 AM EDT Gender Identity Not on file Sexual Orientation Not on file Last Filed Vital Signs Vital Sign Reading Time Taken Comments Blood Pressure 124/62 11/16/2024 9:06 AM EDT Pulse 89 11/16/2024 9:06 AM EDT Temperature 36.8 C (98.3 F) 09/07/2024 [...] COVID-19 Vaccine (5 - Modern a risk season) 2024 11/15/2023, 11/21/2022, 06/12/2020, Additional history exists Influenza Vaccine 10/17/2024 10/23/2023, , 02/26/2022, Additional history exists Adult BMI Screening 09/07/2025 09/07/2024 Tobacco Screening 11/16/2025 11/16/2024 Pap Smear 06/14/2026 06/15/2023, 06/15/2023 Medical Devices [...] Tube Auto Resulted 09/07/2024 8:03 PM EDT [facility] Blood Venous blood / Unknown 09/07/2024 6:57 PM EDT 09/07/2024 7:02 PM EDT us Spike Gutierrez MD LAB BLOOD ORDERABLES Final Resu lt Performing Organization Address City/[facility]/ZIP Co de Phone Number [address] [place] [address], [place] * Light Blue Top (09/07/2024 6:57 PM EDT) Extra Tube Auto Resulted 09/07/2024 8:03 PM EDT [facility] Blood Venous blood / Unknown 09/07/2024 6:57 PM EDT 09/07/2024 7:02 PM EDT us Spike Gutierrez MD LAB BLOOD ORDERABLES Final Resu lt Performing Organization Address City/[facility]/ZIP Co de Phone Number [address] [place] [address], [place] * Lactate w/ Reflex (09/07/2024 6:57 PM EDT) LACTATE W/REFLEX 1.3 0.4 - 2.0 mmol/L 09/07/2024 7:22 PM EDT [facility] Blood Venous blood / Unknown Venipuncture / Unknown 09/07/2024 6:57 PM EDT 09/07/2024 7:02 PM EDT Narrative [facility] - 09/07/2024 7:22 PM EDT Result did not trigger repeat Lactate, re-order if needed. us Spike Gutierrez MD LAB BLOOD ORDERABLES Final Resu lt [facility] [address] [place] [address], [place] * (ABNORMAL) CBC auto differential (09/07/2024 6:57 PM EDT) WBC 9.6 4 - 11 x10E9/L 09/07/2024 7:15 PM EDT [facility] RBC Count 4.14 3.8 - 5.2 X10E12/L 09/07/2024 7:15 PM EDT [facility] Hemoglobin 11.3(L) 11.7 - 15.5 g/dL 09/07/2024 7:15 PM EDT [facility] Hematocrit 34.2(L) 35 - 47 % 09/07/2024 7:15 PM EDT [facility] MCV 83 80 - 100 fL 09/07/2024 7:15 PM EDT [facility] MCH 27.2 27 - 34 pg 09/07/2024 7:15 PM EDT [facility] MCHC 33.0 32 - 36 g/dL 09/07/2024 7:15 PM EDT [facility] RDW 17.0(H) 11.5 - 15 % 09/07/2024 7:15 PM EDT [facility] Platelet Count 294 150 - 450 X10E9/L 09/07/2024 7:15 PM EDT [facility] MPV 7.4 7 - 12 fL 09/07/2024 7:15 PM EDT [facility] Neutrophils % 71.0 % 09/07/2024 7:15 PM EDT [facility] Lymphocytes % 19.6 % 09/07/2024 7:15 PM EDT [facility] Monocytes % 6.7 % 09/07/2024 7:15 PM EDT [facility] Eosinophils % 2.2 % 09/07/2024 7:15 PM EDT [facility] Basophils % 0.5 % 09/07/2024 7:15 PM EDT [facility] Neutrophils Absolute (A) 6.8(H) 1.5 - 6.6 10*3/uL 09/07/2024 7:15 PM EDT [facility] Lymphocytes Absolute 1.9 1.0 - 3.5 10*3/uL 09/07/2024 7:15 PM EDT [facility] Monocytes Absolute 0.6 0.0 - 0.9 10*3/uL 09/07/2024 7:15 PM EDT [facility] Eosinophils Absolute 0.2 0.0 - 0.4 10*3/uL 09/07/2024 7:15 PM EDT [facility] Basophils Absolute 0.0 0.0 - 0.2 10*3/uL 09/07/2024 7:15 PM EDT [facility] Differential Type AUTOMATED DIFFERENTIAL 09/07/2024 7:15 PM EDT [facility] Blood Venous blood / Unknown Venipuncture / Unknown 09/07/2024 6:57 PM EDT 09/07/2024 7:01 PM EDT us Spike Gutierrez MD LAB BLOOD ORDERABLES Final Resu lt [facility] [address] [facility] [place] [address], * (ABNORMAL) Comprehensive metabolic panel (09/07/2024 6:57 PM EDT) SODIUM 137 134 - 146 mmol/L 09/07/2024 7:24 PM EDT [facility] POTASSIUM 4.7 3.5 - 5.0 mmol/L 09/07/2024 7:24 PM EDT [facility] CHLORIDE 99 98 - 109 mmol/L 09/07/2024 7:24 PM EDT [facility] CARBON DIOXIDE 29 22 - 32 mmol/L 09/07/2024 7:24 PM EDT [facility] ANION GAP 9 5 - 15 mmol/L 09/07/2024 7:24 PM EDT [facility] BLOOD UREA NITROGEN 20 5 - 27 mg/dL 09/07/2024 7:24 PM EDT [facility] CREATININE 0.74 0.40 - 1.00 mg/dL 09/07/2024 7:24 PM EDT [facility] Comment:METHOD TRACEABLE TO IDMS STANDARD GLUCOSE 145(H) 65 - 99 mg/dL 09/07/2024 7:24 PM EDT [facility] CALCIUM 9.3 8.5 - 10.5 mg/dL 09/07/2024 7:24 PM EDT [facility] TOTAL PROTEIN 7.6 6.0 - 8.0 g/dL 09/07/2024 7:24 PM EDT [facility] ALBUMIN 3.6 3.2 - 5.3 g/dL 09/07/2024 7:24 PM EDT [facility] ALKALINE PHOSPHATASE 104 39 - 130 U/L 09/07/2024 7:24 PM EDT [facility] AST 24 <=41 U/L 09/07/2024 7:24 PM EDT [facility] ALT 33(H) <=31 U/L 09/07/2024 7:24 PM EDT [facility] BILIRUBIN,TOTAL 0.5 0.3 - 1.2 mg/dL 09/07/2024 7:24 PM EDT [facility] EGFR Non-Race Dependent 90 >=60 ml/min/1.7 3sq.m 09/07/2024 7:24 PM EDT [facility] Comment: eGFR not reported due to non-numeric value for Creatinine. Reported eGFR is based on the CKD-EPI 2020 equation that does not use a race coefficient. Blood Venous blood / Unknown Venipuncture / Unknown 09/07/2024 6:57 PM EDT 09/07/2024 7:01 PM EDT us Spike Gutierrez MD LAB BLOOD ORDERABLES Final Resu lt [facility] [address] [place] [address], [place] from Last 3 Months Insurance [facility] [id number]-[id number] Advance Directives * Full Code (Latest Code Status on File) Date Activated Date Inactivated Comments 12/06/2016 2:11 PM 12/08/2016 12:13 PM Care Teams Professional Services Manager Relationship Specialty Start Date End Date Pastora Kohler APRN-SUPERVISOR BLEACH PLANT [address] [place] [address] PCP - General Internal Medicine 09/07/24
--- OUTSIDE RECORDS SUMMARY | 2024-11-28 09:42 | XMS_ITS | Encounter Summary ---
Author Organization [employer] tem Address [facility][id number] [address] [place] [address] Care Team Providers Care Anesthesia Director Name Role Phone Pastora Kohler BARMAID-RESIDENTIAL BUILDER Primary Care Pro vider Encounter Details Date Type Department Care Team (Latest Contact Info) Description 11/16/2024 Travel Social History Tobacco Use Types Packs/Day [...] on filedocumented in this encounter Care Teams Anesthesia Director Relationship Specialty Start Date End Date Kohler, Pastora A, BARMAID-RESIDENTIAL BUILDER [address] [place] [address] PCP - General Internal Medicine 09/07/24 documented as of this encounter
--- OUTSIDE RECORDS SUMMARY | 2024-11-28 09:42 | XMS_ITS | Encounter Summary ---
Author Organization [facility] Healthcare Address [address] [place] [address] Care Team Providers Care Supervisor Blasting Name Role Phone Jennifer Christine MD Primary Care Provider Pastora Kohler SENIOR PRODUCT DEVELOPMENT MANAGER Unavailable [phone] Pastora Kohler SENIOR PRODUCT DEVELOPMENT MANAGER Unavailable Encounter Details Date Type Department Care Team (Late st Contact Info) Description 09/26/2024 Results Follow-Up [facility] Family Medicine [address] [place] [address] Lalitha Trujillo NP [address] [place], [place] [id number] XR lumbar spine 4+ views w flexion [...] ----- Message ----- From: Interface, Incoming Img Psone Background Sent: 09/23/2024 5:02 PM EDT To: Lalitha Trujillo NP documented in this encounter Plan of Treatment Upcoming Encounters Date Type Department Care Team (Late st Contact Info) Description 11/29/2024 11:45 AM EDT Ancillary Procedure [facility] [address] [facility] [address] [place] [phone] documented as of this encounter Visit Diagnoses Not on filedocumented in this encounter Additional Health Concerns Assessment Noted Time PHQ-9 Depression Total Score: 1 08/31/19 25 12:00 PM EDT documented as of this encounter Care Teams Supervisor Blasting Relationship Specialty Start Date End Date Jennifer Christine MD [address] [facility] [place] [address] PCP - General Family Medicine 04/10/23 Pastora Kohler NP [address] [facility] [place] [address] PCP - [facility] 02/16/23 03/18/80 Pastora Kohler NP [address] [facility] [place] [address] Nurse Practitioner Family Medicine 04/10/23 documented as of this encounter
--- OUTSIDE RECORDS SUMMARY | 2024-11-28 09:42 | XMS_ITS | Encounter Summary ---
Author Organization [facility] [employer] tem Address [facility][id number] [address] [place] [address] Care Team Providers Care Flamer Sealer Name Role Phone Pastora Kohler APRN-CRIMINAL RECORDS TECHNICIAN Primary Care Pro vider Encounter Details Date Type Department Care Team (Late st Contact Info) Description 06/03/2023 Orders Only [facility] [address] [phone] Ref Prov, [place] [address] Social History Tobacco Use Types Packs/Day Years [...] on filedocumented in this encounter Care Teams Flamer Sealer Relationship Specialty Start Date End Date Pastora Kohler APRN-PAM [address] [place] [address] PCP - General Internal Medicine 09/07/24 documented as of this encounter
--- OUTSIDE RECORDS SUMMARY | 2024-11-28 09:42 | XMS_ITS | Encounter Summary ---
Author Organization [employer] [facility] Address [id number] [address] [place] [address] Care Team Providers Care Co Teacher Name Role Phone Pastora Kohler APRN-DIGITAL PROOFING AND PLATEMAKER Primary Care Pro vider Reason for Referral * Cardiology (Routine) - Closed Specialty Diagnoses / Procedures Referred By Conttatum t Referred To Contact Diagnoses Endometrial cancer ([facility]) Pre-op testing Procedures ECG 12 lead Edwin Moreno MD [address] [place] [address], [address] [place] [address] Phone: tel: fax: Referral ID Status Reason Start Date Expiration Date Visits Re quested Visits Authorized [id number] Closed 06/03/2023 06/02/2024 1 1 Encounter Details Date Type Department Care Team (Late st Contact Info) Description 06/03/2023 Orders Only [facility] Gyne[facility] Oncology [address] [place] [address] [address] [place] [address] Edwin Moreno MD [address] [place] [address], [address] [place] [address] Endometrial cancer (CMS-HCC) (Primary Dx); [...] - 146 mmol/L 06/04/2023 1:35 PM EDT [facility] Potassium, Bld 4.1 3.5 - 5.0 mmol/L 06/04/2023 1:35 PM EDT [facility] Chloride 97(L) 98 - 109 mmol/L 06/04/2023 1:35 PM EDT [facility] CO2 31 22 - 32 mmol/L 06/04/2023 1:35 PM EDT [facility] Anion gap 9 5 - 15 mmol/L 06/04/2023 1:35 PM EDT [facility] BUN 16 5 - 27 mg/dL 06/04/2023 1:35 PM EDT [facility] Creatinine 0.92 0.40 - 1.00 mg/dL 06/04/2023 1:35 PM EDT [facility] Comment:METHOD TRACEABLE TO IDMS STANDARD Glucose 170(H) 65 - 99 mg/dL 06/04/2023 1:35 PM EDT [facility] Calcium 9.3 8.5 - 10.5 mg/dL 06/04/2023 1:35 PM EDT [facility] Total Protein 7.3 6.0 - 8.0 g/dL 06/04/2023 1:35 PM EDT [facility] Albumin 3.9 3.2 - 5.3 g/dL 06/04/2023 1:35 PM EDT [facility] Alkaline Phosphatase 107 39 - 130 U/L 06/04/2023 1:35 PM EDT [facility] AST 18 0 - 41 U/L 06/04/2023 1:35 PM EDT [facility] ALT 26 0 - 31 U/L 06/04/2023 1:35 PM EDT [facility] Total bilirubin 0.3 0.3 - 1.2 mg/dL 06/04/2023 1:35 PM EDT [facility] eGFR (CKD-EPI)non-rac e dependent 70 >59 ml/min/1.7 3sq.m 06/04/2023 1:35 PM EDT [facility] Comment: Reported eGFR is based on the CKD-EPI 2020 equation that does not use a race coefficient. PLASMA 06/04/2023 7:54 AM EDT 06/04/2023 7:56 AM EDT us Edwin Moreno MD LAB BLOOD ORDERABLES Final Resu lt [facility] [address] [facility], [address] [place] [address] * (ABNORMAL) CBC auto differential (06/04/2023 7:54 AM EDT) White Blood Cells 9.1 4.0 - 11.0 X10E9/L 06/04/2023 2:34 PM EDT [facility] RBC count 4.19 3.80 - 5.20 X10E12/L 06/04/2023 2:34 PM EDT [facility] Hemoglobin 11.8 11.7 - 15.5 g/dL 06/04/2023 2:34 PM EDT [facility] Hematocrit 36.4 35 - 47 % 06/04/2023 2:34 PM EDT [facility] MCV 87 80 - 100 fL 06/04/2023 2:34 PM EDT [facility] MCH 28.3 27 - 34 pg 06/04/2023 2:34 PM EDT [facility] MCHC 32.5 32 - 36 g/dL 06/04/2023 2:34 PM EDT [facility] RDW 16.0(H) 11.5 - 15.0 % 06/04/2023 2:34 PM EDT [facility] Platelets 294 150 - 450 X10E9/L 06/04/2023 2:34 PM EDT [facility] MPV 7.9 7 - 12 fL 06/04/2023 2:34 PM EDT [facility] % neutrophils 67.4 % 06/04/2023 2:34 PM EDT [facility] % lymphocytes 23.6 % 06/04/2023 2:34 PM EDT [facility] % monocytes 6.5 % 06/04/2023 2:34 PM EDT [facility] % eosinophils 2.1 % 06/04/2023 2:34 PM EDT [facility] % Basophils 0.4 % 06/04/2023 2:34 PM EDT [facility] Neutrophils Absolute (A) 6.1 1.5 - 6.6 X10E9/L 06/04/2023 2:34 PM EDT [facility] Lymphocytes Absolute 2.1 1.0 - 3.5 X10E9/L 06/04/2023 2:34 PM EDT [facility] Monocytes Absolute 0.6 0 - 0.9 X10E9/L 06/04/2023 2:34 PM EDT [facility] Eosinophils Absolute 0.2 0.0 - 0.4 X10E9/L 06/04/2023 2:34 PM EDT [facility] Basophils Absolute 0.0 0.0 - 0.2 X10E9/L 06/04/2023 2:34 PM EDT [facility] Blood / Unknown 06/04/2023 7 :54 AM EDT 06/04/2023 7:56 AM EDT Edwin Moreno MD LAB BLOOD ORDERABLES Final Resu lt [facility] [address] [place] [address] * X-ray chest 2 views (06/04/2023 7:53 AM EDT) Anatomical Region Laterality Modality Chest N/A Computed Radiogr aphy 06/04/2023 9:53 AM EDT Narrative 06/04/2023 9:54 AM EDT Chest 2 views History: Anesthesia clearance, preadmission testing Endometrial cancer ([facility]); Pre-op testing Comparison: 02/19/2022 Findings: Chest 2 views. Stable cardia mediastinal silhouette. No new focal opacity, effusion or pneumothorax. Degenerative changes of the thoracic spine. Impression: No evident acute cardiopulmonary process. Finalized by Sami Bahena MD on 06/04/2023 9:54 AM Procedure Note Sami Bahena MD - 06/04/2023 Chest 2 views History: Anesthesia clearance, preadmission testing Endometrial cancer([facility]); Pre-op testing Comparison: 02/19/2022 Findings: Chest 2 [...] this encounter Visit Diagnoses Diagnosis Endometrial cancer ([facility])- Primary Malignant neoplasm of corpus uteri, except isthmus Pre-op testing Unspecified pre-operative examination Endometrial cancer (CMS-HCC) Malignant neoplasm of corpus uteri, except isthmus Pre-op testing Unspecified pre-operative examination Endometrial cancer (CMS-HCC) Malignant neoplasm of corpus uteri, except isthmus Pre-op testing Unspecified pre-operative examination documented in this encounter Care Teams Co Teacher Relationship Specialty Start Date End Date Pastora Kohler, JOSEFINA-DIGITAL PROOFING AND PLATEMAKER [address] [place] [address] PCP - General Internal Medicine 09/07/24 documented as of this encounter
--- OUTSIDE RECORDS SUMMARY | 2024-11-28 09:42 | XMS_ITS | Encounter Summary ---
Author Organization [facility] Address [id number] [address] [place] [address] Care Team Providers Care Rural Health Consultant Name Role Phone Pastora Kohler APRN-PATHOLOGIST ASSISTANT Primary Care Pro vider Encounter Details Date Type Department Care Team (Late st Contact Info) Description 06/04/2023 Orders Only [facility] [address] [phone] Ref Prov, [place] [address] Social History Tobacco Use Types Packs/Day Years [...] on filedocumented in this encounter Care Teams Rural Health Consultant Relationship Specialty Start Date End Date Pastora Kohler APRN-PAM [address] [place] [address] PCP - General Internal Medicine 09/07/24 documented as of this encounter
--- OUTSIDE RECORDS SUMMARY | 2024-11-28 09:42 | XMS_ITS | Patient Health Record ---
Author Organization [facility] [place] Address [address] [place] [address] Care Team Providers Care Assistant Real Estate Manager Name Role Phone Judith Newman DO Primary Care Provider Unavailabl e Allergies No Known Allergies Reason For Referral No Information Medications Medication SIG (Take, Route, Frequency, Duration) Notes Start Date End Date Status metFORMIN HCl 1000 MG 1 tablet with a me al Orally Once a day; Duration: 30 day(s) Active Nortriptyline HCl 50 MG 1 capsule Orally Once a day; Duration: 30 day(s) Active Omeprazole 20 MG as directed Orally Active Ozempic Active buPROPion HCl ER (XL) 300 MG 1 tablet in the morning Orally Once a day; Duration: 30 day(s) Active HYDROcodone-Acetaminophen 5-325 MG 1 tablet as needed Orally every 6 hrs Active Jardiance 10 MG 1 tablet Orally Once a day; Duration: 30 day(s) Active Lisinopril-hydroCHLOROthi azide 20-12.5 MG 1 tablet Orally Once a day; Duration: 30 day(s) Active PriLOSEC OTC 20 MG 1 tablet 30 minutes before morning meal Orally Daily Not-Taking Tylenol with Codeine #3 300-30 MG 1 tablet as needed Orally TID Not-Taking Baclofen 10 MG 1 tablet as needed Orally Twice a day Active Wellbutrin XL 300 MG 1 tablet in the mor blanca Orally Daily Not-Taking ARIPiprazole 15 MG 1 tablet Orally Once a day; Duration: 30 day(s) Active Atorvastatin Calcium 40 MG 1 tablet Orally Once a day; Duration: 30 day(s) Active Lisinopril-hydroCHLOROthi azide 20-12.5 MG 2 tablets Orally Daily N ot-Taking Metoprolol Succinate 50 MG 1 capsule Orally Once a day Not-Taking Drummonds 5-325 MG 1 tablet as needed Orally every 6 hrs Not-Taking Pamelor 50 MG 2 capsules Orally Daily Not-Taking Basaglar KwikPen 100 UNIT/ML as directed Subcutaneous Not-Taking Clotrimazole 1 % 1 application Externally BID Not-Taking Glucophage 500 mg 2 Tablets Orally BID Not-Taking Lisinopril 10 MG 1 tablet Orally Once a day; Duration: 30 day(s) Not-Taking Atorvastatin Calcium 40 MG 1 tablet Orally Once a day; Duration: 30 day(s) Not-Taking Baclofen 10 MG 1 [...] Problem Status W/U Status Risk Notes Problem Essential hypertension (76149941) Essential (primary) hypertension (I10) Active confirmed Problem Type II diabetes mellitus without complication (861218330) Type 2 diabetes mellitus without complications (E11.9) Active confirmed Problem Chronic kidney disease stage 2 (475616801) Chronic kidney disease, stage 2 (mild) (N18.2) Active confirmed Problem Long-term current use of insulin (441349132) bank operations officer (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
--- OUTSIDE RECORDS SUMMARY | 2024-11-28 09:43 | XMS_ITS | Encounter Summary ---
Author Organization [facility] Address [address] [place] [address] Care Team Providers Care Network Internship Name Role Phone Jennifer Christine MD Primary Care Provider [phone] Pastora Kohler DISTRICT BRANCH MANAGER Unavailable [phone] Pastora Kohler DISTRICT BRANCH MANAGER Unavailable [phone] Encounter Details Date Type Department Care Team (Late st Contact Info) Description 05/12/2023 Clinisync Result Encounter [facility] External Department Unsolicited Stefany Webb, DO [address] [place] [address] Dr Igor Nair [place], [place] [id number] Social History Tobacco Use Types Packs/Day Years [...] 11/29/2024 11:45 AM EDT Ancillary Procedure [facility] [address] [place] [address] documented as of this encounter Procedures Procedure Name Priority Date/Time Associated Diagnosis Comments ECG 12-LEAD 05/12/2023 10:50 AM EDT documented in this encounter Results * ECG 12-LEAD (05/12/2023 10:50 AM EDT) Anatomical Region Laterality Modality Other 05/12/2023 10:5 0 AM EDT Narrative 05/12/2023 11:36 [place] [address] Electrocardiograph Report Signed Patient: JEANETTE FRAGA MR#: [id number] : 1960 Acct:[id number] Age/Sex: 63 / F ADM Date: 05/12/23 Loc: PST Attending Dr: Stefany Webb D.O. Ordering Physician: Stefany Webb D.O. Date of Service: 05/12/23 Procedure(s): ECG 12 lead Accession Number(s): [id number] cc: [facility] Test Date: 2023-05-12 Pat Name: JEANETTE FRAGA Department: Room: - Gender: Female Clock And Watch Hands Dipper: : 1960 Requested By: STEFANY WEBB Order Number: [id number] Reading MD: PJ CARREON Measurements Intervals [place] Rate: 78 P: 71 MS: 158 QRS: 23 QRSD: 118 T: 57 QT: 360 QTc: 412 Interpretive Statements SINUS RHYTHM MODERATE INTRAVENTRICULAR CONDUCTION DELAY [110+ ms QRS DURATION] No previous ECG available for comparison Electronically Signed On 3-26-2024 23:36:01 EDT by PJ CARREON Dictated By: Pj Carreon D.O. Signed By: 05/12/232335 DD/ 1050 TD/TT: Etl Analyst: Procedure Note Radiology, Radiologist, - 05/12/[address] [address] Electrocardiograph Report Signed Patient: JEANETTE FRAGA MMR#: [id number] : 1960cct:[id number] Age/Sex: 63 / FADM Date: 05/12/23 Loc: [facility] Attending Dr: Stefany Webb D.O. Ordering Physician: Stefany Webb D.O. Date of Service: 05/12/23 Procedure(s): ECG 12 lead Accession Number(s): [id number] cc: [facility] Test Date: 2023-05-12 Pat Name: JEANETTE FRAGA Department: Room: - Gender: Female Clock And Watch Hands Dipper: : 1960 Requested By: STEFANY WEBB Order Number: [id number] Reading MD: PJ CARREON Measurements Intervals [place] Rate: 78 P: 71 MS: 158 QRS: 23 QRSD: 118 T: 57 QT: 360 QTc: 412 Interpretive Statements SINUS RHYTHM MODERATE INTRAVENTRICULAR CONDUCTION DELAY [110+ ms QRS DURATION] No previous ECG available for comparison Electronically Signed On 05-12-2023 23:36:01 EDT by PJ CARREON Dictated By: Pj Carreon D.O. Signed By:05/12/232335 DD/ 1050 TD/TT: Etl Analyst: us Stefany Webb DO [facility] Final Result documented in this encounter Visit Diagnoses Not on filedocumented in this encounter Care Teams Network Internship Relationship Specialty Start Date End Date Jennifer Christine MD [address] [place] [address] PCP - General Family Medicine 04/10/23 Pastora Kohler NP [address] [place], [place] [address] PCP - [facility] 02/16/23 03/18/80 Pastora Kohler NP [address] [place], [place] [address] Nurse Practitioner Family Medicine 04/10/23 documented as of this encounter
--- OUTSIDE RECORDS SUMMARY | 2024-11-28 09:43 | XMS_ITS | Encounter Summary ---
Author Organization [facility] Address [address] [place] [address] Care Team Providers Care Hplc Chemist Name Role Phone Jennifer Christine MD Primary Care Provider [phone] Pastora Kohler MILL MANAGER Unavailable [phone] Pastora Kohler MILL MANAGER Unavailable Reason for Visit * Reason Onset Date Comments Med Refill 12/21/2023 Encounter Details Date Type Department Care Team (Late st Contact Info) Description 12/21/2023 Refill [facility] Family Medicine [address] [place] [address] Jennifer Christine MD [address] [place] [address] Social History Tobacco Use Types [...] 11/29/2024 11:45 AM EDT Ancillary Procedure [facility] [address] [facility] [address] [place] [address] documented as of this encounter Visit Diagnoses Not on filedocumented in this encounter Care Teams Hplc Chemist Relationship Specialty Start Date End Date Jennifer Christine MD [address] [place] [address] PCP - General Family Medicine 04/10/23 Pastora Kohler NP [address] [place] [address] PCP - [facility] 02/16/23 03/18/80 Pastora Kohler NP [address] [place] [address] Nurse Practitioner Family Medicine 04/10/23 documented as of this encounter
--- OUTSIDE RECORDS SUMMARY | 2024-11-28 09:43 | XMS_ITS | Encounter Summary ---
Author Organization [facility] Address [address] [place] [address] Care Team Providers Care Road Patcher Name Role Phone Jennifer Christine MD Primary Care Provider [phone] Pastora Kohler PRODUCT SAFETY COMPLIANCE LEADER Unavailable [phone] Pastora Kohler PRODUCT SAFETY COMPLIANCE LEADER Unavailable [phone] Encounter Details Date Type Department Care Team (Late st Contact Info) Description 03/10/2024 External Result Encounter [facility] External Department Unsolicited Sean Torres, SERGIO [address] [place] [address] Social History Tobacco Use Types [...] Description 11/29/2024 11:45 AM EDT Ancillary Procedure [facility] [address] [place] [address] documented as of this encounter [...] Manuel Armando M.D.03/10/2024 10:09 AM Dictation Location: [place] [address] Transcribed By: [facility] 03/10/24 1009 Dictated By: Carlos Manuel Armando DO 03/10/24 0959 Signed By: <Electronically signed by Carlos Manuel Armando DO in OV> 03/10/24 1009 Narrative 03/10/2024 10:11 AM EST [facility] [place] [address] MRI Report Signed Patient: Lesli Clay MR#: [id number] : 1960 Acct:[id number] Age/Sex: 63 / F ADM Date: 03/10/24 Loc: MR Room: Type: [facility] Attending Dr: Sean Torres PA-C Copies to: Sean Torres PA-C Ordering Provider: Sean Torres PA-C Date of Service: 03/10/24 MR/MR shoulder RT wo con: [id number] ([id number]) XR/XR pre/post mri xray: M24.811 MRI right [...] RT wo con Procedure Note Radiology, Radiologist, MD - 03/10/2024 [facility] [place] [address] [place] [address] MRI Report Signed Patient: Lesli Clay [facility]#: [id number] : 1Acct:[id number] Age/Sex: 63 / FADM Date: 03/10/24 Loc: Room:Type: [facility] Attending Dr: Sean Torres PA-C Copies to: Sean Torres PA-C Ordering Provider: Sean Torres PA-C Date of Service: 03/10/24 MR/MR shoulder RT wo con: M2.811 ([id number]) XR/XR pre/post mri xray: MRI right Shoulder [...] Manuel Armando M.D.03/10/2024 10:09 AM Dictation Location: [place] [address] Transcribed By: [facility] 03/10/24 1009 Dictated By: Carlos Manuel Armando DO 03/10/24 0959 Signed By: <Electronically signed by Carlos Manuel Armando DO in OV> 03/10/24 1009 us Sean [facility] MRI PROCEDURES Final Resu lt documented in this encounter Visit Diagnoses Not on filedocumented in this encounter Care Teams Road Patcher Relationship Specialty Start Date End Date Jennifer Christine MD [address] [place] [address] PCP - General Family Medicine 04/10/23 Pastora Kohler NP [address] [facility] [place] [address] [address] - [facility] 02/16/23 03/18/80 Pastora Kohler NP [address] [facility] [place] [place] [address] Nurse Practitioner Family Medicine 04/10/23 documented as of this encounter
--- OUTSIDE RECORDS SUMMARY | 2024-11-28 09:43 | XMS_ITS | Encounter Summary ---
Author Organization [facility] Address [address] [place] [address] Care Team Providers Care Cotton Dispatcher Name Role Phone Jennifer Christine MD Primary Care Provider [phone] Pastora Kohler MERGERS AND ACQUISITIONS BANKER Unavailable [phone] Pastora Kohler MERGERS AND ACQUISITIONS BANKER Unavailable Encounter Details Date Type Department Care Team ([facility] st Contact Info) Description 11/22/2024 [facility]phone [facility] [address] [place] [address] Jennifer Christine MD [address] [place] [address] Social History Tobacco Use Types [...] encounter Miscellaneous Notes * Telephone Encounter - Rohit Sanford - 11/22/2024 2:13 PM EDT Lesli called asking for a call regarding x-ray results. [phone] documented in this encounter Plan of Treatment Upcoming Encounters Date Type Department Care Team (Late st Contact Info) Description 11/29/2024 11:45 AM EDT Ancillary Procedure [facility] [address] [facility] [address] [place] [address] documented as of this encounter Visit Diagnoses Not on filedocumented in this encounter Additional Health Concerns Assessment Noted Time PHQ-9 Depression Total Score: 1 08/31/19 25 12:00 PM EDT documented as of this encounter Care Teams Cotton Dispatcher Relationship Specialty Start Date End Date Jennifer Christine MD [address] [place] [address] PCP - General Family Medicine 04/10/23 Pastora Kohler NP [address] [place] [address] PCP - [facility] 02/16/23 03/18/80 Pastora Kohler NP [address] [place] [address] Nurse Practitioner Family Medicine 04/10/23 documented as of this encounter
--- OUTSIDE RECORDS SUMMARY | 2024-11-28 09:43 | XMS_ITS ---
Author Organization [facility] Address [address], [address] [place] [address] Care Team Providers Care Computerized Mill Mill Recorder Name Role Phone Pastora Kohler OUTDOOR ADVENTURE LEADER - EXECUTIVE RECEPTIONIST Primary Care P [facility] Active Problems Problem Noted Date Diagnosed Date [...] & Plan: She is managed by [facility]. A1c is high and advised she [...]
--- OUTSIDE RECORDS SUMMARY | 2024-11-28 09:43 | XMS_ITS | Encounter Summary ---
Author Organization [facility] Address [address] [place] [address] Care Team Providers Care Visual Specialist Name Role Phone Jennifer Christine MD Primary Care Provider [phone] Pastora Kohler MOLDING LINE ASSISTANT Unavailable [phone] Pastora Kohler MOLDING LINE ASSISTANT Unavailable Encounter Details Date Type Department Care Team (Late st Contact Info) Description 11/22/2024 Results Follow-Up [facility] Family Medicine [address] [place] [address] Pastora Kohler MOLDING LINE ASSISTANT [address] [place] [address] XR femur left 2+ views Social History Tobacco Use Types Packs/Day Years [...] encounter Miscellaneous Notes * Telephone Encounter - Jennifer Babb MA - 11/22/2024 3:28 PM EDT Spoke with pt and she voices understanding * Telephone Encounter - Jennifer Babb MA - 11/22/2024 3:28 PM EDT ----- Message from Pastora Kohler sent at 11/22/2024 2:18 PM EDT ----- Let patient know 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 No lesions at site. Most likely that lump is soft tissue. I put ultrasound in for that area. 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 No lesions at site. Most likely that lump is soft tissue. I put ultrasound in for that area. documented in this encounter Plan of Treatment Upcoming Encounters Date Type Department Care Team (Late st Contact Info) Description 11/29/2024 11:45 AM EDT Ancillary Procedure [facility] [address] [facility] [address] [place] [address] Scheduled Orders Name Type Priority Associated Diagnoses Orde r Schedule US Soft Tissue Palpable Mass Imaging Routine Palpable mass of soft tissue of lower extremity Expected: 11/22/2024, Expires: 11/22/2025 documented as of this encounter Visit Diagnoses Diagnosis Palpable mass of soft tissue of lower extremity- Primary documented in this encounter Additional Health Concerns Assessment Noted Time PHQ-9 Depression Total Score: 1 08/31/19 25 12:00 PM EDT documented as of this encounter Care Teams Visual Specialist Relationship Specialty Start Date End Date Jennifer Christine MD [address] [place], [place] [address] PCP - General Family Medicine 04/10/23 Pastora Kohler NP [address] [facility] [place], [place] [address] PCP - [facility] 02/16/23 03/18/80 Pastora Kohler NP [address] [place], [place] [address] Nurse Practitioner Family Medicine 04/10/23 documented as of this encounter
--- OUTSIDE RECORDS SUMMARY | 2024-11-28 09:43 | XMS_ITS | Encounter Summary ---
Author Organization [facility] Address [address] [place] [address] Care Team Providers Care Natural History Collections Curator Name Role Phone Jennifer Christine MD Primary Care Provider [phone] Pastora Kohler ALIGNER BARREL AND RECEIVER Unavailable [phone] Pastora Kohler ALIGNER BARREL AND RECEIVER Unavailable [phone] Encounter Details Date Type Department Care Team (Late st Contact Info) Description 11/22/2024 Telephone [facility] [address] [place] [address] Mable Suárez MA Social History Tobacco Use Types Packs/Day Years [...] Telephone Encounter - Mable Suárez MA - 11/22/2024 5:31 PM EDT Pt has yet to get mammogram done due to back pain, pt states when she is feeling better she will get imaging scheduled documented in this encounter Plan of Treatment Upcoming Encounters Date Type Department Care Team (Late st Contact Info) Description 11/29/2024 11:45 AM EDT Ancillary Procedure [facility] [address] [facility] [address] [facility] [place] [address] documented as of this encounter Visit Diagnoses Not on filedocumented in this encounter Additional Health Concerns Assessment Noted Time PHQ-9 Depression Total Score: 1 08/31/19 25 12:00 PM EDT documented as of this encounter Care Teams Natural History Collections Curator Relationship Specialty Start Date End Date Jennifer Christine MD [address] [facility] [place] [address] PCP - General Family Medicine 04/10/23 Pastora Kohler NP [address] [facility] [place] [address] PCP - [facility] 02/16/23 03/18/80 Pastora Kohler NP [address] [facility] [place] [address] Nurse Practitioner Family Medicine 04/10/23 documented as of this encounter
--- OUTSIDE RECORDS SUMMARY | 2024-11-28 09:43 | XMS_ITS | Encounter Summary ---
Author Organization [facility] Address [address] [place] [address] Care Team Providers Care Shine Worker Name Role Phone Jennifer Christine MD Primary Care Provider [phone] Pastora Kohler DOUBLE BACKER Unavailable [phone] Pastora Kohler DOUBLE BACKER Unavailable Encounter Details Date Type Department Care Team (Late st Contact Info) Description 11/17/2024 Bamboo flowsheet [facility] [address] [place] [address] Jennifer Christine MD [address] [place] [address] Social History Tobacco Use Types [...] Department Care Team (Late Contact Info) Description 11/29/2024 11:45 AM EDT Ancillary Procedure [facility] [address] [facility] [place] [address] documented as of this encounter Visit Diagnoses Not on filedocumented in this encounter Additional Health Concerns Assessment Noted Time PHQ-9 Depression Total Score: 1 08/31/19 25 12:00 PM EDT documented as of this encounter Care Teams Shine Worker Relationship Specialty Start Date End Date Jennifer Christine MD [address] [facility] [place] [address] PCP - General Family Medicine 04/10/23 Pastora Kohler NP [address] [facility] [place] [address] PCP - [facility] 02/16/23 03/18/80 Pastora Kohler NP [address] [place] [address] Nurse Practitioner Family Medicine 04/10/23 documented as of this encounter
--- OUTSIDE RECORDS SUMMARY | 2024-11-28 09:43 | XMS_ITS | Encounter Summary ---
Author Organization [facility] Address [address] [place] [address] Care Team Providers Care Publication Manager Name Role Phone Jennifer Christine MD Primary Care Provider [phone] Pastora Kohler AIRCRAFT POWERTRAIN REPAIRER Unavailable [phone] Pastora Kohler AIRCRAFT POWERTRAIN REPAIRER Unavailable [phone] Encounter Details Date Type Department Care Team (Latest Contact Info) Description 11/21/2024 Travel Social History Tobacco Use Types Packs/Day [...] Upcoming Encounters Date Type Department Care Team ( st Contact Info) Description 11/29/2024 11:45 AM EDT Ancillary Procedure [facility] [address] [facility] [address] [place] [address] documented as of this encounter Visit Diagnoses Not on filedocumented in this encounter Additional Health Concerns Assessment Noted Time PHQ-9 Depression Total Score: 1 08/31/19 25 12:00 PM EDT documented as of this encounter Care Teams Publication Manager Relationship Specialty Start Date End Date Jennifer Christine MD [address] [facility] [place] [address] PCP - General Family Medicine 04/10/23 Pastora Kohler NP [address] [facility] [address] [place], [place] [address] PCP - [facility] 02/16/23 03/18/80 Pastora Kohler NP [address] [facility] [address] [place], [place] [address] Nurse Practitioner Family Medicine 04/10/23 documented as of this encounter
--- OUTSIDE RECORDS SUMMARY | 2024-11-28 09:43 | XMS_ITS | Encounter Summary ---
Author Organization [facility] Address [address] [place] [address] Care Team Providers Care Assembly Supervisor Name Role Phone Mi Cabrera MD Primary Care Provider [phone] Pastora Kohler LPN MEDICAL ASSISTANT Unavailable [phone] Pastora Kohler LPN MEDICAL ASSISTANT Unavailable [phone] Encounter Details Date Type Department Care Team (Late st Contact Info) Description 05/19/2023 Clinisync Result Encounter [facility] External Department Unsolicited Mi Cabrera MD [address] [place] [address] Social History Tobacco Use Types [...] 11/29/2024 11:45 AM EDT Ancillary Procedure [facility] [address] [address] documented as of this encounter Procedures Procedure Name Priority Date/Time Associated Diagnosis Comments CA ECHO DOPPLER COMPLETE 05/19/2023 7:15 PM EDT documented in this encounter Results * CA ECHO DOPPLER COMPLETE (05/19/2023 7:15 PM EDT) Anatomical Region Laterality Modality Other 05/19/2023 7:15 PM EDT Narrative 05/19/2023 7:16 [place] [address] Cardiology Report Signed Patient: JEANETTE FRAGA MR#: [id number] : 1960 Acct:[id number] Age/Sex: 63 / F ADM Date: 05/18/23 Loc: CARD Attending Dr: MI CABRERA Ordering Physician: MI CABRERA Date of Service: 05/18/23 Procedure(s): CA echo doppler complete Accession Number(s): [id number] cc: [facility] ; MI CABRERA Patient Name: JEANETTE FRAGA MR#: [id number] : 1960 Exam Date: 05/18/2023 Ordering Doctor: [...] SELLERS Signed By: 05/19/231915 DD/ 14 TD/TT: Credit Risk Modeler: Procedure Note Radiology, Radiologist, MD - 05/19/2023 [place] [address] Cardiology Report Signed Patient: JEANETTE FRAGA MMR#: [id number] : 1960cct:[id number] Age/Sex: 63 / FADM Date: 05/18/23 Loc: CARD Attending Dr: MI CABRERA Ordering Physician: MI CABRERA Date of Service: 05/18/23 Procedure(s): CA echo doppler complete Accession Number(s): [id number] cc: [facility] ; MI CABRERA Patient Name: JEANETTE FRAGA MR#: [id number] : 1960 Exam Date: 05/18/2023 Ordering Doctor: [...] on 05/19/2023 at 19:15 Dictated By: RICA ESLLERS Signed By:05/19/231915 DD/ 14 TD/TT: Credit Risk Modeler: Mi Cabrera MD [facility] Final Resul t documented in this encounter Visit Diagnoses Not on filedocumented in this encounter Care Teams Assembly Supervisor Relationship Specialty Start Date End Date Mi Cabrera MD [address] [facility] [place] [address] PCP - General Family Medicine 04/10/23 Pastora Kohler NP [address] [facility] [place] [address] [address] - [facility] 02/16/23 03/18/80 Pastora Kohler NP [address] [facility] [place] [address] Nurse Practitioner Family Medicine 04/10/23 documented as of this encounter
--- OUTSIDE RECORDS SUMMARY | 2024-11-28 09:43 | XMS_ITS | Encounter Summary ---
Author Organization [facility] Address [address] [place] [address] Care Team Providers Care Sea Kayaking Guide Name Role Phone Jennifer Christine MD Primary Care Provider [phone] Pastora Kohler DOPSTER Unavailable [phone] Pastora Kohler DOPSTER Unavailable [phone] Encounter Details Date Type Department Care Team (Latest Contact Info) Description 11/17/2024 Travel Social History Tobacco Use Types Packs/Day [...] [facility] [address] [facility] [address] [place] [address] documented as of this encounter Visit Diagnoses Not on filedocumented in this encounter Additional Health Concerns Assessment Noted Time PHQ-9 Depression Total Score: 1 08/31/19 25 12:00 PM EDT documented as of this encounter Care Teams Sea Kayaking Guide Relationship Specialty Start Date End Date Jennifer Christine MD [address] [facility] [place] [address] PCP - General Family Medicine 04/10/23 Pastora Kohler NP [address] [facility] [address] [place], [place] [address] PCP - [facility] 02/16/23 03/18/80 Pastora Kohler NP [address] [facility] [place], [place] [address] Nurse Practitioner Family Medicine 04/10/23 documented as of this encounter
--- OUTSIDE RECORDS SUMMARY | 2024-11-28 09:43 | XMS_ITS | Encounter Summary ---
Author Organization [facility] Address [address] [place] [address] Care Team Providers Care Doctor Naturopathic Name Role Phone Jennifer Christine MD Primary Care Provider Pastora Kohler GAS JOCKEY Unavailable [phone] Pastora Kohler GAS JOCKEY Unavailable Encounter Details Date Type Department Care Team (Late st Contact Info) Description 07/15/2023 Orders Only [facility] [address] [place] [address] Jennifer Christine MD [address] [place] [address] Social History Tobacco Use Types [...] EDT Ancillary Procedure [facility] [address] [facility] [address] [place] [address] documented as of this encounter Procedures Procedure [...] on filedocumented in this encounter Care Teams Doctor Naturopathic Relationship Specialty Start Date End Date Jennifer Christine MD [address] [place] [address] PCP - General Family Medicine 04/10/23 Pastora Kohler NP [address] [facility] [place] [address] PCP - [facility] 02/16/23 03/18/80 Pastora Kohler NP [address] [facility] [place] [address] Nurse Practitioner Family Medicine 04/10/23 documented as of this encounter
--- OUTSIDE RECORDS SUMMARY | 2024-11-28 09:43 | XMS_ITS | Encounter Summary ---
Author Organization [facility] Address [address] [place] [address] Care Team Providers Care Freelance Programmer/App Developer Name Role Phone Jennifer Christine MD Primary Care Provider [phone] Pastora Kohler DEHORNER Unavailable [phone] Pastora Kohler DEHORNER Unavailable [phone] Encounter Details Date Type Department Care Team (Late st Contact Info) Description 03/08/2024 Orders Only [facility] [address] [facility] [place] [address] Kori Frederick DEHORNER [address] [place] [address] Social History Tobacco Use Types [...] 11/29/2024 11:45 AM EDT Ancillary Procedure [facility] [address] [facility] [address] [place] [address] documented as of this encounter Procedures Procedure Name Priority Date/Time Associated Diagnosis Comments HEMOGLOBIN A1C Routine 02/04/2024 2:40 PM EST documented in this encounter Results * (ABNORMAL) Hemoglobin A1c (02/04/2024 2:40 PM EST) HEMOGLOBIN A1C 9.7 Blood Venous blood specimen / Unknown Kori Frederick DEHORNER LAB BLOOD ORDERABLES Ed ited Result - Final documented in this encounter Visit Diagnoses Not on filedocumented in this encounter Care Teams Freelance Programmer/App Developer Relationship Specialty Start Date End Date Jennifer Christine MD [address] [place] [address] PCP - General Family Medicine 04/10/23 Pastora Kohler NP [address] [place] [address] PCP - [facility] 02/16/23 03/18/80 Pastora Kohler NP [address] [place] [address] Nurse Practitioner Family Medicine 04/10/23 documented as of this encounter
--- OUTSIDE RECORDS SUMMARY | 2024-11-28 09:43 | XMS_ITS | Encounter Summary ---
Author Organization [facility] Address [address] [place] [address] Care Team Providers Care Art Education Professor Name Role Phone Jennifer Christine MD Primary Care Provider [phone] Pastora Kohler RUBBER STAMP DIES INSPECTOR Unavailable Pastora Kohler RUBBER STAMP DIES INSPECTOR Unavailable Encounter Details Date Type Department Care Team ([facility] st Contact Info) Description 11/19/2024 Telephone [facility] Family Medicine [address] [place] [address] Jennifer Christine MD [address] [place] [address] Social History Tobacco Use Types [...] encounter Miscellaneous Notes * Telephone Encounter - Breanna Vasquez MA - 11/22/2024 11:18 AM EDT I tried calling [facility] twice, yesterday and today, and I keep running into issues with their automated system. This last time I called and was on hold for a automobile rental representative for 17 minutes. I did see the patient yesterday and she states that she is taking her Metformin. * Telephone Encounter - Breanna Vasquez MA - 11/21/2024 10:26 AM EDT I called [facility], which is the only pharmacy that I see on file, and they state that they don't even have Metformin on file. They said that it falls off their list if it hasn't been filled in 18 months or more. * Telephone Encounter - Jennifer Christine MD - 11/19/2024 1:09 PM EDT Is she taking her metformin? Please check with pharmacy and see when last filled. documented in this encounter Plan of Treatment Upcoming Encounters Date Type Department Care Team (Late st Contact Info) Description 11/29/2024 11:45 AM EDT Ancillary Procedure [facility] [address] [facility] [address] [place] [address] documented as of this encounter Visit Diagnoses Not on filedocumented in this encounter Additional Health Concerns Assessment Noted Time PHQ-9 Depression Total Score: 1 08/31/19 25 12:00 PM EDT documented as of this encounter Care Teams Art Education Professor Relationship Specialty Start Date End Date Jennifer Christine MD [address] [facility] [place], [place] [address] PCP - General Family Medicine 04/10/23 Pastora Kohler NP [address] [facility] [place] [address] PCP - [facility] 02/16/23 03/18/80 Pastora Kohler NP [address] [place] [id number] Nurse Practitioner Family Medicine 04/10/23 documented as of this encounter
--- OUTSIDE RECORDS SUMMARY | 2024-11-28 09:43 | XMS_ITS | Encounter Summary ---
Author Organization [facility] Address [address] [place] [address] Care Team Providers Care Transmission Worker Name Role Phone Jennifer Christine MD Primary Care Provider [phone] Pastora Kohler CLINICAL NURSE SPECIALIST Unavailable [phone] Pastora Kohler CLINICAL NURSE SPECIALIST Unavailable [phone] Encounter Details Date Type Department Care Team (Late st Contact Info) Description 08/07/2023 Abstract [facility] [address] [place] [address] Jennifer Christine MD [address] [place] [address] Social History Tobacco Use Types [...] 11/29/2024 11:45 AM EDT Ancillary Procedure [facility] [address] [facility] [address] [place] [address] documented as of this encounter Visit Diagnoses Not on filedocumented in this encounter Care Teams Transmission Worker Relationship Specialty [place] [address] [place] [id number] PCP - General Family Medicine 04/10/23 Pastora Kohler NP [facility] [place] [address] PCP - [facility] 02/16/23 03/18/80 Pastora Kohler NP [facility] [place], [place] [address] Nurse Practitioner Family Medicine 04/10/23 documented as of this encounter
--- OUTSIDE RECORDS SUMMARY | 2024-11-28 09:43 | XMS_ITS | Encounter Summary ---
Author Organization [facility] Address [address] [place] [address] Care Team Providers Care Senior Stereo Compiler Team Lead Name Role Phone Jennifer Christine MD Primary Care Provider [phone] Pastora Kohler WEBSITE DEVELOPER Unavailable Pastora Kohler WEBSITE DEVELOPER Unavailable Encounter Details Date Type Department Care Team (Late st Contact Info) Description 11/21/2024 Bamboo flowsheet [facility] [address] [place] [address] Pastora Kohler WEBSITE DEVELOPER [address] [place] [address] Social History Tobacco Use Types [...] EDT Ancillary Procedure [facility] [address] [facility] [address] [place] [address] documented as of this encounter Visit Diagnoses Not on filedocumented in this encounter Additional Health Concerns Assessment Noted Time PHQ-9 Depression Total Score: 1 08/31/19 25 12:00 PM EDT documented as of this encounter Care Teams Senior Stereo Compiler Team Lead Relationship Specialty Start Date End Date Jennifer Christine MD [address] [place] [address] PCP - General Family Medicine 04/10/23 Pastora Kohler NP [address] [place] [address] PCP - [facility] 02/16/23 03/18/80 Pastora Kohler NP [address] [place] [address] Nurse Practitioner Family Medicine 04/10/23 documented as of this encounter
--- OUTSIDE RECORDS SUMMARY | 2024-11-28 09:44 | XMS_ITS | Encounter Summary ---
Author Organization [facility] Address [address] [place] [address] Care Team Providers Care Glost Placer Name Role Phone Jennifer Christine MD Primary Care Provider Pastora Kohler CARBONATION EQUIPMENT OPERATOR Unavailable [phone] Pastora Kohler CARBONATION EQUIPMENT OPERATOR Unavailable Encounter Details Date Type Department Care Team (Late st Contact Info) Description 06/03/2024 Abstract [facility] [address] [place] [address] Pastora Kohler CARBONATION EQUIPMENT OPERATOR [address] [place] [address] Social History Tobacco Use Types [...] 11/29/2024 11:45 AM EDT Ancillary Procedure [facility] [address] [facility] [address] [place] [address] documented as of this encounter Visit Diagnoses Not on filedocumented in this encounter Care Teams Glost Placer Relationship Specialty [place] [address] [place] [id number] PCP - General Family Medicine 04/10/23 Pastora Kohler NP [facility] [place] [address] PCP - [facility] 02/16/23 03/18/80 Pastora Kohler NP [facility]9 [place], [place] 6[address] Nurse Practitioner Family Medicine 04/10/23 documented as of this encounter
--- OUTSIDE RECORDS SUMMARY | 2024-11-28 09:44 | XMS_ITS | Clinical Summary ---
Author Organization [facility] Address [address] [place] [address] Care Team Providers Care Bar Back Name Role Phone AdanDago reynagaCasper Primary Care Provider [phone] Allergies No known active allergies Medications lisinopril(PRINI [...] of 2) 2010 Covid-19 Vaccine (1 - 2024- season) 2024 Influenza Vaccine (#1) 2024 RSV Vaccine (1 - 1-dose 75+ series) 2035 Insurance PPO OOS Care Teams Bar Back Relationship Specialty Start Date End Date Dago Keiht [address] [place] [address] PCP - General 02/15/08
--- OUTSIDE RECORDS SUMMARY | 2024-11-28 09:44 | XMS_ITS | Encounter Summary ---
Author Organization [facility] Address [address] [place] [address] Care Team Providers Care User Experience Developer Name Role Phone Judith Newman DO Unavailable [phone] Judith Newman DO Primary Care Provider [phone] Jennifer Christine MD Primary Care Provider Pastora Kohler COUNSELOR/ART THERAPIST Unavailable Pastora Kohler COUNSELOR/ART THERAPIST Unavailable Encounter Details Date Type Department Care Team (Late Contact Info) Description 10/22/2022 Abstract [facility] [address] [place] [address] Judith Newman DO [address] [facility] 200 [place] [address] Social History Tobacco Use Types Packs/Day Years Used Date Smoking Tobacco: Never Assessed Comments Unknown Sex and Gender Information Value Date Recorded Sex Assigned at Not on file Legal Sex Female 6:56 PM EDT Gender Identity Not on file Sexual Orientation Not on file documented as of this encounter Plan of Treatment Upcoming Encounters Date Type Department Care Team ([facility] Contact Info) Description 11/29/2024 11:45 AM EDT Ancillary Procedure [facility] [address] [facility] 130 [place] [address] documented as of this encounter Visit Diagnoses Not on filedocumented in this encounter Care Teams User Experience Developer Relationship Specialty Start Date End Date Judith Newman DO [address] [facility] 200 [place] [phone] PCP - [facility] 09/16/21 12/16/22 Judith Newman DO [address] [facility] 200 [facility] [place] [address] PCP - General Family Medicine 06/24/22 04/09/23 Jennifer Christine MD [address] [place], [place] 6[address]37[address] PCP - General Family Medicine 04/10/23 Pastora Kohler NP [address] [place] [address] PCP - [facility] 02/16/23 03/18/80 Pastora Kohler NP [address] [place] [address] Nurse Practitioner Family Medicine 04/10/23 documented as of this encounter
--- OUTSIDE RECORDS SUMMARY | 2024-11-28 09:44 | XMS_ITS | Encounter Summary ---
Author Organization [facility] Address [facility] [place] [address] Care Team Providers Care Bacteriologist Pharmaceutical Name Role Phone Dago Keith Primary Care Provider [phone] Source Comments In the event this information is protected by the Federal Confidentiality of Alcohol and Drug AbusePatient Records regulations: The Federal rules restrict any use of the information to criminally investigate or prosecute any alcohol or drug abuse patient.[facility] Encounter Details Date Type Department Care Team (Late st Contact Info) Description 05/29/2023 Lab Requisition [facility] Laboratory [address] [place] [address] Lukasz Neal MD [address] [place] [address] Person encountering health services to consult on [...] EDT) Case Report Surgical Pathology Report Case: [id number] Authorizing Provider: Lukasz Neal MD Collected: 05/29/2023 12:39 PM Ordering Location: [facility] Received: 05/29/2023 12:38 PM [facility] Laboratory Pathologist: Jeri Dickerson MD Specimen: Slide(s), 2 SLIDES ([id number]) 05/29/2023 5:06 PM EDT [facility] FINAL DIAGNOSIS Review of outside slides, dated 05/26/2023: Endometrium, curettage: -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 05/29/2023 5:06 PM EDT [facility] at 1706 EDT Diagnosis Comment Thank [...] free to give me a call at [phone]. 05/29/2023 5:06 PM EDT [facility] Clinical History CONSULT REQUESTED 05/29/2023 5:06 PM EDT [facility] Performing Lab Diagnostic interpretation performed at [facility], [address] [place], [place] [id number] [facility]# [id number] Engraver Steel Plate: Josh Orellana M.D. 05/29/2023 5:06 PM EDT [facility] Blocks or Slides MICROSCOPE SLIDE / Unknown 05/29/2023 12:39 PM EDT 05/29/2023 12:38 PM EDT us Lukasz Neal MD SURGICAL PATHOLOGY Final Re sult [facility] [address] [facility] [address] [place] [address], documented in this encounter Visit Diagnoses Diagnosis Person encountering health services to consult on behalf of another person Other person consulting on behalf of another person documented in this encounter Care Teams Bacteriologist Pharmaceutical Relationship Specialty Start Date End Date Dago Keith [address] [place] [address] [place] [address] PCP - General 02/15/08 documented as of this encounter
--- OUTSIDE RECORDS SUMMARY | 2024-11-28 09:44 | XMS_ITS | Encounter Summary ---
Author Organization [facility] Address [address] [place] [address] Care Team Providers Care Roofing Supervisor Name Role Phone Trent, Judith Cuenca DO Unavailable [phone] Judith Newman DO Primary Care Provider [phone] Jennifer Christine MD Primary Care Provider [phone] Pastora Kohler INFORMATION SYSTEMS PROFESSOR Unavailable [phone] Pastora Kohler INFORMATION SYSTEMS PROFESSOR Unavailable Encounter Details Date Type Department Care Team (Late st Contact Info) Description 11/28/2022 Abstract [facility] [address] [place] [address] Sean Torres, SERGIO [address] [place] [address] Social History Tobacco Use Types [...] 11/29/2024 11:45 AM EDT Ancillary Procedure [facility] [address] [facility] [address] [place] [address] documented as of this encounter Visit Diagnoses Not on filedocumented in this encounter Care Teams Roofing Supervisor Relationship Specialty Start Date End Date Judith Newman DO [address] [facility] [address] [place] [address] PCP - [facility] 09/16/21 12/16/22 Judith Newman DO [address] [facility] 200 [place] [address] PCP - General Family Medicine 06/24/22 04/09/23 Jennifer Christine MD [address] [place] [address] PCP - General Family Medicine 04/10/23 Pastora Kohler NP [address] [place] [address] PCP - [facility] 02/16/23 03/18/80 Pastora Kohler NP [facility]9 [place] [address] Nurse Practitioner Family Medicine 04/10/23 documented as of this encounter
--- OUTSIDE RECORDS SUMMARY | 2024-11-28 09:44 | XMS_ITS | Encounter Summary ---
Author Organization [facility] Address [address] [place] [address] Care Team Providers Care Gas Pump Attendant Name Role Phone Jennifer Christine MD Primary Care Provider [phone] Pastora Kohler COMMERCIAL CREDIT PORTFOLIO MANAGER Unavailable [phone] Pastora Kohler COMMERCIAL CREDIT PORTFOLIO MANAGER Unavailable [phone] Encounter Details Date Type Department Care Team (Late st Contact Info) Description 04/23/2023 Clinisync Result Encounter [facility] External Department Unsolicited Stefany [place], DO [address] [place] [address] Dr Igor Nair [place], [place] [phone] Social History Tobacco Use Types Packs/Day Years [...] EDT Ancillary Procedure [facility] [address] [place] [address] documented as of this encounter Procedures Procedure Name Priority Date/Time Associated Diagnosis Comments US PELVIS W/ TRANSVAGINAL 04/23/2023 12:08 PM EST documented in this encounter Results * US PELVIS W/ TRANSVAGINAL (04/23/2023 12:08 PM EST) Anatomical Region Laterality Modality Other 04/23/2023 12:0 8 PM EST Narrative 04/23/2023 12:10 [place] [address] Ultrasound Report Signed Patient: JEANETTE FRAGA MR#: [id number] : 1960 Acct:[id number] Age/Sex: 63 / F ADM Date: 04/23/23 Loc: [facility] Attending Dr: Stefany Webb D.O. Ordering Physician: Stefany Webb D.O. Date of Service: 04/23/23 Procedure(s): US pelvis w/ transvaginal Accession Number(s): [id number] cc: [facility] ; Stefany Webb D.O. [address] [address] Patient Name: JEANETTE FRAGA MRN: [id number] date: 1960 Sex: F Assigned Patient Location: [facility] Current Patient Location: [facility] Accession/Order Number: [id number] Exam Date: 04/23/2023 10:35 Report Date: 04/23/2023 [...] Signed By: 04/23/23 1210 DD/ 1208 TD/TT: Appliance Repairer: Procedure Note Radiology, Radiologist, MD - 04/23/2023 [place] [address] Ultrasound Report Signed Patient: JEANETTE FRAGA MMR#: [id number] : 1960cct:[id number] Age/Sex: 63 / FADM Date: 04/23/23 Loc: [facility] Attending Dr: Stefany Webb D.O. Ordering Physician: Stefany Webb D.O. Date of Service: 04/23/23 Procedure(s): US pelvis w/ transvaginal Accession Number(s): [id number] cc: [facility] ; Stefany Webb D.O. [place] [address] Patient Name: JEANETTE FRAGA MRN: [id number] date: 1960 Sex: F Assigned Patient Location: [facility] Current Patient Location: [facility] Accession/Order Number: [id number] Exam Date: 04/23/2023 10:35 Report Date: 04/23/2023 [...] M.D. Signed By:04/23/23 1210 DD/ 1208 TD/TT: Appliance Repairer: us Stefany Jon DO [facility] Final Result documented in this encounter Visit Diagnoses Not on filedocumented in this encounter Care Teams Gas Pump Attendant Relationship Specialty Start Date End Date Jennifer Christine MD [address] [place], [place] [phone] PCP - General Family Medicine 04/10/23 Pastora Kohler NP [facility]9 [place] [address] PCP - [facility] 02/16/23 03/18/80 Pastora Kohler NP [address] [place] [address] Nurse Practitioner Family Medicine 04/10/23 documented as of this encounter
--- OUTSIDE RECORDS SUMMARY | 2024-11-28 09:44 | XMS_ITS | Encounter Summary ---
Author Organization [facility] Address [address] [place] [address] Care Team Providers Care Extrusion Utility Worker Name Role Phone Judith Newman DO Unavailable [phone] Judith Newman DO Primary Care Provider Jennifer Christine MD Primary Care Provider Pastora Kohler ELEMENTARY ELL TEACHER Unavailable [phone] Pastora Kohler ELEMENTARY ELL TEACHER Unavailable Encounter Details Date Type Department Care Team (Late Contact Info) Description 10/24/2022 Abstract [facility] [address] [place] [address] Judith Newman DO [address] [facility] 200 [place] [address] Social History Tobacco Use Types Packs/Day Years Used Date Smoking Tobacco: Never Assessed Comments Unknown Sex and Gender Information Value Date Recorded Sex Assigned at Not on file Legal Sex Female 6:56 PM EDT Gender Identity Not on file Sexual Orientation Not on file documented as of this encounter Plan of Treatment Upcoming Encounters Date Type Department Care Team ([facility] Contact Info) Description 11/29/2024 11:45 AM EDT Ancillary Procedure [facility] [address] [facility] 130 [place] [address] documented as of this encounter Visit Diagnoses Not on filedocumented in this encounter Care Teams Extrusion Utility Worker Relationship Specialty Start Date End Date Judith Newman DO [address] [facility] 200 [place] [address] PCP - [facility] 09/16/21 12/16/22 Judith Newman DO [address] [facility] 200 [facility] [place] [address] PCP - General Family Medicine 06/24/22 04/09/23 Jennifer Christine MD [address] [place], [place] [phone] PCP - General Family Medicine 04/10/23 Pastora Kohler NP [address] [place] [address] PCP - [facility] 02/16/23 03/18/80 Pastora Kohler NP [address] [place] [address] Nurse Practitioner Family Medicine 04/10/23 documented as of this encounter
--- OUTSIDE RECORDS SUMMARY | 2024-11-28 09:44 | XMS_ITS | Clinical Summary ---
Author Organization [facility] Address [address], [address] [place] [address] Care Team Providers Care Entry Level Account Executive Name Role Phone Pastora Kohler RETAIL AIDE - CLINICAL STAFF EDUCATOR [facility] Allergies No known active allergies Medications ARIPiprazole [...] tablet by mouth daily Active nystatin (MYCOSTATIN) 127281 UNIT/GM powderIndicatio ns:Tinea corporis Apply 2 times [...] Assessment & Plan: She is managed by [facility]. A1c is high and advised [...] Description 09/08/2024 8:30 AM EDT Office Visit [facility] Gynecologic Oncology Services [address] [place] [address] Jenna Andrade PA-C History of uterine cancer [...] Description 01/20/2025 9:30 AM EST Office Visit [facility] NETWORK/TELECOM ENGINEER Oncology [address] [place] [address] Jenna Andrade PA-C [address] [place] [address] Follow up Health Maintenance Due Date Last [...] HIGH RISK Routine 06/15/2023 12:00 AM EDT NETWORK/TELECOM ENGINEER CYTOLOGY Routine 06/15/2023 12:00 AM EDT from Last 3 Months or Most Recently Relevant to Health Maintenance Results * (ABNORMAL) Hemoglobin A1c (07/16/2023 10:15 AM EDT) Hemoglobin A1C 8.8(H) 4.0 - 6.0 % 07/16/2023 10:15 AM EDT [facility] Estimated Avg Glucose 206 mg/dL 07/16/2023 10:15 AM EDT [facility] Comment: The ADA and AACC recommend providing the estimated average glucose result to permit better patient understanding of their HBA1c result. Blood BLOOD SPECIMEN / Unknown 07/16/2023 10:15 AM EDT 07/16/2023 11:03 AM EDT us Rossi Man Cobau RETAIL AIDE - CLINICAL STAFF EDUCATOR CHEMISTRY ORDERA BLES Final Result [facility] [address] [place] [address], [facility] [phone] * (ABNORMAL) Lipid Panel (07/16/2023 10:15 AM EDT) Cholesterol, Total 117 0 - 199 mg/dL 07/16/2023 10:15 AM EDT [facility] Comment: Cholesterol Guidelines: <200 Desirable 200-240 Borderline >240 Undesirable HDL 36(L) >40 mg/dL 07/16/2023 10:15 AM EDT [facility] Comment: HDL Guidelines: <40 Undesirable 40-59 Borderline >59 Desirable LDL Cholesterol 60 0 - 100 mg/dL 07/16/2023 10:15 AM EDT [facility] Comment: LDL Guidelines: <100 Desirable 100-129 Near to/above Desirable 130-159 Borderline >159 Undesirable Direct (measured) LDL and calculated LDL are not interchangeable tests. Chol/HDL Ratio 3.0 07/16/2023 10:15 AM EDT [facility] Triglycerides 107 <150 mg/dL 07/16/2023 10:15 AM EDT [facility] Comment: Triglyceride Guidelines: <150 Desirable 150-199 Borderline 200-499 High >499 Very high Based on AHA Guidelines for fasting triglyceride, November 2011. VLDL 21 mg/dL 07/16/2023 10:15 AM EDT [facility] Blood BLOOD SPECIMEN / Unknown 07/16/2023 10:15 AM EDT 07/16/2023 11:03 AM EDT us Rossi Armendariz RETAIL AIDE - CLINICAL STAFF EDUCATOR CHEMISTRY ORDERA BLES Final Result [facility] [address] [phone] * (ABNORMAL) Comprehensive Metabolic Panel (07/16/2023 10:15 AM EDT) Sodium 139 136 - 145 mmol/L 07/16/2023 10:15 AM EDT [facility] Potassium 4.7 3.7 - 5.3 mmol/L 07/16/2023 10:15 AM EDT [facility] Chloride 103 98 - 107 mmol/L 07/16/2023 10:15 AM EDT [facility] CO2 23 20 - 31 mmol/L 07/16/2023 10:15 AM EDT [facility] Anion Gap 13 9 - 16 mmol/L 07/16/2023 10:15 AM EDT [facility] Glucose 161(H) 74 - 99 mg/dL 07/16/2023 10:15 AM EDT [facility] BUN 21 8 - 23 mg/dL 07/16/2023 10:15 AM EDT [facility] Creatinine 1.0(H) 0.50 - 0.90 mg/dL 07/16/2023 10:15 AM EDT [facility] Est, Glom Filt Rate 64 >60 mL/min/1. 73m2 07/16/2023 10:15 AM EDT [facility] Comment: These results are not intended for [...] - 10.4 mg/dL 07/16/2023 10:15 AM EDT [facility] Total Protein 7.9 6.6 - 8.7 g/dL 07/16/2023 10:15 AM EDT [facility] Albumin 4.4 3.5 - 5.2 g/dL 07/16/2023 10:15 AM EDT [facility] Albumin/Globulin Ratio 1.0 1.0 - 2.5 07/16/2023 10:15 AM EDT [facility] Total Bilirubin 0.3 0.00 - 1.20 mg/dL 07/16/2023 10:15 AM EDT [facility] Alkaline Phosphatase 103 35 - 104 U/L 07/16/2023 10:15 AM EDT [facility] ALT 15 10 - 35 U/L 07/16/2023 10:15 AM EDT [facility] AST 18 10 - 35 U/L 07/16/2023 10:15 AM EDT [facility] Blood BLOOD SPECIMEN / Unknown 07/16/2023 10:15 AM EDT 07/16/2023 11:03 AM EDT us Rossi S Donovan Cobau RETAIL AIDE - CLINICAL STAFF EDUCATOR CHEMISTRY ORDERA BLES Final Result Performing Organization Address City/[facility]/ZIP Co de Phone Number [address] [phone] * Human papillomavirus (HPV) DNA probe thin prep high risk (06/15/2023 12:00 AM EDT) Specimen Description CERVICAL MATERIAL 06/15/2023 12:00 AM EDT [facility] HPV Sample .THIN PREP 06/15/2023 12:00 AM EDT [facility] HPV, Genotype 16 Not Detected Not Detected 06/15/2023 12:00 AM EDT [facility] HPV, Genotype 18 Not Detected Not Detected 06/15/2023 12:00 AM EDT [facility] HPV, High Risk Other Not Detected Not Detected 06/15/2023 12:00 AM EDT [facility] HPV, Interpretation 06/15/2023 12:00 AM EDT [facility] Comment: This test amplifies and detects DNA [...] ORDERABLES Final R esult Performing Organization Address [facility]/ZIP Co de Phone Number [address] [phone] * NETWORK/TELECOM ENGINEER Cytology (06/15/2023 12:00 AM EDT) Cytology Report Path Number: [id number] DIAGNOSIS Imaged ThinPrep Pap - Cervical (1 [...] or for other forensic [place] [address] . Source of Specimen: A: Imaged ThinPrep Pap - Cervical (1 monolayer slide) HPV Reflex?........... ...........HPV Regardless Clinical History Postmenopausal Z12.4 Encounter for screening for malignant neoplasm of cervix Processing Lab: [address] [phone] Interpretation performed at [address] [phone] This Pap Test has been evaluated with [...] CYTOLOGY REPORT Patient Name: OBED LESLI DurbinGhulam [facility] Rec: [id number] [facility] ANATOMIC [facility] [address] [place], [place] [phone] [facility] CERVICAL MATERIAL 06/15/2023 024 7:12 AM EDT us Marshall Emmanuel MD PATHOLOGY/CYTOLOGY ORDERABLES Final Result [facility] [address] [place] [id number] [place] [address] [facility] from Last 3 Months or Most Recently Relevant to Health Maintenance Insurance [id number] MEDICARE MEDICARE [facility] MEDICARE Advance Directives * Full Code (Latest Code Status on File) Date Activated Date Inactivated Comments 07/28/2023 6:08 AM 07/29/2023 1:27 PM * Full Code Date Activated Date Inactivated Comments 06/30/2023 10:53 AM 06/30/2023 5:12 PM Care Teams Entry Level Account Executive Relationship Specialty Start Date End Date Pastora Kohler APRN - CLINICAL STAFF EDUCATOR [address] [place] [address] PCP - General Nurse Practitioner, Family 06/15/23
--- OUTSIDE RECORDS SUMMARY | 2024-11-28 09:44 | XMS_ITS | Clinical Summary ---
Author Organization [facility] Address [address] [place] [address] Care Team Providers Care Ampoule Filler And Sealer Name Role Phone Jennifer Christine MD Primary Care Provider [phone] Pastora Kohler RESEARCH COMPUTING SPECIALIST Unavailable [phone] Pastora Kohler RESEARCH COMPUTING SPECIALIST Unavailable [phone] Allergies No known active allergies Medications ARIPiprazole (Abilify) 15 MG tablet 1 (one) time each day at the same time Active buPROPion XL (Wellbutrin XL) 300 MG 24 hr tablet Active ergocalciferol (Vitamin D2) 1.25 MG (04440 UT) capsule 3 Active Accu-Chek Guide test strip 3 Active Accu-Chek FastClix Lancets misc 3 Active metFORMIN (Glucophage) 1000 MG tablet 1 (one) time each day at the same time Active nortriptyline (Pamelor) 50 MG capsule Active pregabalin (Lyrica) 75 MG capsule Take 75 mg by mouth in the morning and 75 mg before bedtime. Active tiZANidine (Zanaflex) 4 MG tablet 3 Active oxyCODONE-acetamin ophen (Percocet) 5-325 MG tablet Take 1 tablet by mouth as needed in the morning and 1 tablet as needed at noon and 1 tablet as needed in the evening. 3 Active Semaglutide, 2 MG/DOSE, (Ozempic, 2 MG/DOSE,) 8 MG/3ML solution pen-injector Inject 2 mg under the skin 1 (one) time per week Active insulin degludec (Tresiba) 100 UNIT/ML injectionIndicatio ns:Type 2 diabetes mellitus with hyperglycemia, with long-term current use of insulin (HCC) Inject 48 Units under the skin at bedtime 4 Active metoprolol tartrate (Lopressor) 25 MG tabletIndications: Primary hypertension Take 1 tablet (25 mg) by mouth in the morning and 1 tablet (25 mg) in the evening. Take with meals. 180 tablet 3 4 Active hydrOXYzine HCl (Atarax) 25 MG tablet Take 25 mg by mouth every 6 (six) hours if needed for anxiety PRN Active Klayesta [id number] UNIT/GM powder APPLY EXTERNALLY TO AFFECTED SKIN AREAS TWICE DAILY NEEDED 5 Active losartan-hydroCHLO ROthiazide (Hyzaar) 50-12.5 MG tabletIndications: Primary hypertension Take 1 tablet by mouth Daily 90 tablet 1 5 Active amLODIPine (Norvasc) 5 MG tabletIndications: Primary hypertension Take 1 tablet (5 mg) by mouth Daily 90 tablet 1 5 Active traMADol (Ultram) 50 MG tablet 50 mg 5 Active atorvastatin (Lipitor) 40 MG tabletIndications: Mixed hyperlipidemia TAKE 1 TABLET BY MOUTH EVERY DAY 90 tablet 1 5 Active meloxicam (Mobic) 15 MG tabletIndications: Left hip pain Take 1 tablet (15 mg) by mouth Daily 30 tablet 5 Active Active Problems Problem Noted Date Diagnosed Date Edema 11/17/2024 Iron deficiency anemia 11/17/2024 Neuropathy 11/17/2024 Peripheral vascular disease 11/17/2024 Chronic kidney disease, stage 2 (mild) 5 Assessment & Plan (08/30/2024 7:28 PM EDT): -drink plenty of fludis. Good control of DM and HTN. manager intermediate (current) use of insulin 04/12/2024 Assessment & [...] 4:57 PM EDT): She is managed by [facility]. A1c is high and advised [...] Cervical radiculopathy 01/18/2014 Carpal tunnel syndrome 10/03/2011 Resolved Problems Problem Noted Date Diagnosed Date Resolved Date Anemia 11/17/2024 11/17/2024 Encounters Date Type Department Care Team Description 11/22/2024 Telephone [facility] [address] [facility] [place] [phone] Mable Suárez MA 11/22/2024 Results Follow-Up [facility] [address] [facility] [place] [phone] Pastora Kohler NP XR femur left 2+ views 11/22/2024 Telephone [facility] [address] [facility] [place] [phone] Jennifer Christine MD 11/21/2024 4:00 PM EDT Office Visit [facility] [address] [place] [phone] Pastora Kohler NP Need for vaccination (Primary Dx); Pain of left femur 11/21/2024 3:45 PM EDT Ancillary Procedure [facility] [address] [facility] [address] [facility] [place] [address] Pain of left femur 11/21/2024 Bamboo flowsheet [facility] [address] [facility] [place] [phone] Pastora Kohler NP 11/21/2024 Travel 11/19/2024 Telephone [facility] [address] [facility] [place] [phone] Jennifer Christine MD 11/17/2024 10:40 AM EDT Office Visit [facility] [address] [facility] [place] [phone] Jennifer Christine MD Sore throat 11/17/2024 Bamboo flowsheet [facility] [address] [place] [address] Jennifer Christine MD 11/17/2024 Travel 10/22/2024 Refill [facility] [address] [facility] [place] [address] Lalitha Trujillo NP Left hip pain 09/26/2024 Results Follow-Up [facility] [address] [facility] [place] [address] Lalitha Trujillo NP XR lumbar spine 4+ views w flexion extension 09/26/2024 Travel 09/23/2024 3:30 PM EDT Office Visit [facility] [address] [facility] [place] [address] Lalitha Trujillo NP Acute left-sided low back pain with left-sided sciatica (Primary Dx) 09/23/2024 1:30 PM EDT Ancillary Procedure [facility] [address] [facility] [place] [address] Acute left-sided low back pain with left-sided sciatica 09/23/2024 Bamboo flowsheet [facility] [address] [facility] [place] [address] Lalitha Trujillo NP 09/23/2024 Travel 09/22/2024 Refill [facility] [address] [facility] [place] [address] Jennifer Christine MD Mixed hyperlipidemia 09/14/2024 2:00 PM EDT Office Visit [facility] [address] [facility] [place] [address] Lalitha Trujillo NP Left leg cellulitis (Primary Dx) 09/14/2024 Bamboo flowsheet [facility] [address] [facility] [place] [address] Lalitha Trujillo NP 09/14/2024 Travel 09/08/2024 Telephone [facility] [address] [place] [address] Teri Main MA 08/31/2024 Results Follow-Up [facility] [address] [facility] [place] [address] Lalitha Trujillo NP Comprehensive metabolic panel, Lipid panel, TSH W/REFLEX TO FT4, Additional followed-up results: 2 08/30/2024 12:30 PM EDT Office Visit [facility] [address] [place] [address] Lalitha Trujillo NP Encounter for wellness examination (Primary Dx); Primary hypertension ; Type 2 diabetes mellitus with hyperglycemia, with long-term current use of insulin (HCC); History of uterine cancer; Morbid obesity (CMS-HCC); Mixed hyperlipidemia ; Encounter for screening mammogram for malignant neoplasm of breast; Encounter for immunization; Left hip pain; Recurrent major depressive disorder, in partial remission ; manager intermediate (current) use of insulin ([facility]); Chronic kidney disease, stage 2 (mild); Chronic pain disorder 08/30/2024 Bamboo flowsheet [facility] [address] [place] [address] Lalitha Trujillo NP 08/30/2024 Travel from Last 3 Months Immunizations Immunization Administration Dates Next Due Influenza, Unspecified 10/17/2016 Influenza, injectable, quadr ivalent, preservative free 11/21/2022,02/26/2022,12/09/2016 Influenza, seasonal, injectable 01/03/2014 Influenza, seasonal, injecta ble, preservative free 11/21/2024,01/03/2015 Pneumococcal Conjugate PCV 20 08/30/2024 SARS-COV-2 (COVID-19) [...] F) 11/21/2024 3:59 PM EDT Respiratory Rate 18 09/14/2024 2:08 PM EDT Oxygen Saturation 99% 11/21/2024 3:59 PM EDT Inhaled Oxygen Concentration - - Weight 130 kg (286 lb) 11/21/2024 3:59 PM EDT Height 160 cm (5' 3 ) 11/17/2024 10:49 AM EDT Body Mass Index 50.66 11/17/2024 10:49 AM EDT Plan of Treatment Upcoming Encounters Date Type Department Care Team (Late st Contact Info) Description 11/29/2024 11:45 AM EDT Ancillary Procedure [facility] [address] [place] [address] Health Maintenance Due Date Last Done Comments CT Colonography 1960 Colonoscopy 1960 Colorectal Cancer Screening 1960 FIT-DNA 1960 FIT 1960 FOBT 1960 Sigmoidoscopy 1960 Mammogram 09/14/2024 09/15/2023, 02/14/2019 Diabetes: Hemoglobin A1C 11/30/2024 025, 05/25/2024, 02/04/2024, Additional history exists Diabetes: Urine Protein Screening 03/01/2025 025 Diabetes: Retinopathy Screening 05/04/2025 Medicare Annual Wellness (AWV) 08/30/2025 08/30/2024 , 08/30/2024 Pap Smear 06/14/2026 06/15/2023, 06/15/2023 Cervical Cancer Screening 06/14/2028 HPV/Cotest 06/14/2028 06/15/2023, 06/15/2023 Influenza Vaccine Completed 11/21/2024, , 02/26/2022, Additional history exists Procedures Procedure Name Priority Date/Time Associated Diagnosis Comments XR FEMUR 2+ VW LEFT Routine 11/21/2024 5 :01 PM EDT Pain of left femur POCT RAPID STREP A Routine 11/17/2024 11 :46 AM EDT Sore throat STATUS COVID-19/FLU Routine 11/17/2024 1 1:45 AM EDT Sore throat XR LUMBAR SPINE 4+ VIEWS WITH FLEXION EXTENSION Routine 09/23/2024 4:11 PM EDT Acute left-sided low back pain with left-sided sciatica CBC (INCLUDES DIFF/PLT) Routine 08/30/2024 12:53 PM EDT Encounter for wellness examination HEMOGLOBIN A1C Routine 08/30/2024 12:53 PM EDT Encounter for wellness examination Type 2 diabetes mellitus with hyperglycemia, with long-term current use of insulin ([facility]) Morbid obesity ([facility]-H[facility]) TSH W/REFLEX TO FT4 Routine 08/30/2024 1 2:53 PM EDT Encounter for wellness examination Morbid obesity ([facility]-HCC) LIPID PANEL Routine 08/30/2024 12:53 PM EDT Encounter for wellness examination Primary hypertension Type 2 diabetes mellitus with hyperglycemia, with long-term current use of insulin (HCC) Morbid obesity ([facility]-H[facility]) Mixed hyperlipidemia COMPREHENSIVE METABOLIC PANEL Routine 08/30/2024 12:53 PM EDT Encounter for wellness examination Primary hypertension Type 2 diabetes mellitus with hyperglycemia, with long-term current use of insulin (HCC) Morbid obesity ([facility]-HCC) MICROALBUMIN / CREATININE URINE RATIO Routine 03/01/2024 [...] Relevant to Health Maintenance Results * XR femur left 2+ views [...] SIGNED BY: Pj Dang MD Pastora Kohler RESEARCH COMPUTING SPECIALIST IMG XR PROCEDURES Final Result * POCT rapid strep A manually resulted (11/17/2024 11:46 AM EDT) Rapid Strep A Screen Negative Negative, None Detected Swab 11/17/2024 11:4 6 AM EDT Jennifer Christine MD POINT OF CARE TEST ENTER/EDIT ORDERABLES Final Result * STATUS COVID-19/FLU (11/17/2024 11:45 AM EDT) FLU A negative FLU B negative SARS COV 2 RNA negative Nasopharyngeal 11/17/2024 11 :45 AM EDT Jennifer Christine MD POINT OF CARE TEST ENTER/EDIT ORDERABLES Final Result * XR lumbar spine 4+ views w [...] Diffuse disc space narrowing L5-S1. Procedure Note SignerPj MD - 09/23/2024 Lumbar spine, 7 views. [...] SIGNED BY: Pj Dang MD Lalitha Trujillo RESEARCH COMPUTING SPECIALIST IMG XR PROCEDURES Final Result * TSH W/REFLEX TO FT4 (08/30/2024 12:53 PM EDT) Pathologist [facility] TSH W/REFLEX TO FT4 1.41 0.40 - 4.50 mIU/L [facility] 08/30/2024 12:5 3 PM EDT 08/30/2024 12:54 PM EDT Narrative Resulting Agency Comment Performing Organization Information Site ID: QPT Name: [facility] Address: [address] [place] [address], [address] [place] [phone] Director: Tobin Stratton MD us Lalitha Trujillo NP LAB BLOOD ORDERABLES Final Resu lt [facility] * (ABNORMAL) CBC and differential (08/30/2024 12:53 PM EDT) Pathologist [facility] WHITE BLOOD CELL COUNT 10.3 3.8 - [...] Performing Organization Information Site ID: QPT Name: [facility] Address: [address] [place] [address], [address] [place] [phone] Director: Tobin Stratton MD Lalitha Trujillo NP LAB BLOOD ORDERABLES Final Resu lt Performing Organization Address [facility] de Phone Number [facility] * (ABNORMAL) [...] Performing Organization Information Site ID: QPT Name: [facility] Address: [address] [place] [address], [address] [place] [phone] Director: Tobin Stratton MD us Lalitha Trujillo NP LAB BLOOD ORDERABLES Final Resu lt Performing Organization Address [facility] Co de Phone Number [facility] * (ABNORMAL) Lipid [...] equation in the estimation of LDL-C. Aris VILLAFANA et al. BERT. 2013;310(19): 2588-3246 (http://education.[employer].Chartbeat/faq/XOK103) CHOL/HDLC RATIO 2.9 <5.0 (calc) [facility] NON [...] Performing Organization Information Site ID: QPT Name: [facility] Address: [address] [place] [address], [address] [place] [phone] Director: Tobin Stratton MD Lalitha Trujillo NP LAB BLOOD ORDERABLES Final Resu lt [facility] * Comprehensive metabolic panel (08/30/2024 12:53 PM EDT) [facility] Glucose 82 65 - 99 mg/dL [...] Performing Organization Information Site ID: QPT Name: [facility] Address: [address] [place] [address], [address] [place] [phone] Director: Tobin Stratton MD us Lalitha Trujillo RESEARCH COMPUTING SPECIALIST LAB BLOOD ORDERABLES Final Resu lt Performing Organization Address [facility] de Phone Number [facility] * (ABNORMAL) Microalbumin / creatinine urine [...] Performing Organization Information Site ID: QPT Name: [facility] Address: [address] [place] [address], [address] [place] [phone] Director: Tobin Stratton MD us Kori Frederick RESEARCH COMPUTING SPECIALIST LAB URINE ORDERABLES Fi nal Result [facility] * Bilateral screening mammogram with tomosynthesis (09/15/2023 11:20 AM EDT) Anatomical Region Laterality Modality Breast Bilateral Mammography 09/15/2023 1:11 PM EDT Impressions 09/16/2023 8:35 AM EDT BIRADS 1 - Negative Follow-up: Routine Screening Mamm Board Certified Radiologists. Accredited by the ACR and FDA. MAMMOGRAPHY IS VERY IMPORTANT TO YOUR HEALTH. THE [employer] GUIDELINES RECOMMEND THAT WOMEN 40 [...] IS VERY IMPORTANT TO YOUR HEALTH. THE [employer]IETYGUIDELINES RECOMMEND THAT WOMEN 40 YEARS [...] Recently Relevant to Health Maintenance [facility] Care Teams Ampoule Filler And Sealer Relationship Specialty Start Date End Date Jennifer Christine MD [address] [facility] [place], [place] [id number] PCP - General Family Medicine 04/10/23 Pastora Kohler RESEARCH COMPUTING SPECIALIST [address] [facility] [place] [address] PCP - [facility] 02/16/23 03/18/80 Pastora Kohler NP [address] [facility] [place] [address] Nurse Practitioner Family Medicine 04/10/23
--- OUTSIDE RECORDS SUMMARY | 2024-11-28 09:48 | XMS_ITS | CCD ---
Author Organization [facility] Providers Care Dry Cleaning Attendant Name Role Phone QUE BLAKE Unavailable Unavailable GECHASEINGQUE Unavailable Unavailable SELF, REFERRED Unavailable Unavailable OLIVE, ROSALES Unavailable Unavailable RI Unavailable Unavailable QUE BLAKE Unavailable Unavailable WIEPKING, LAUREN Unavailable Unavailable SELF, REFERRED Unavailable Unavailable JULIEN GARCÍA Unavailable Unavailable OLIVE, ROSALES Unavailable Unavailable QUE BLAKE Unavailable Unavailable QUE BLAKE Unavailable Unavailable QUE BLAKE Unavailable Unavailable OLIVE, ROSALES Unavailable Unavailable Clifford Munoz Jr. Unavailable Clifford Munoz Unavailable Lili Burgos Unavailable [facility] Unava ilable OLIVIER ., DR ADAM Liu Admitting Unavailable AGUAYO ., DR ADAM Liu Attending Unavailable HERNANDEZ ., ALICIA Consulting Unavailable LAKSHMIPATHY ., NARENDRANATH Consulting Daphne vailable [facility] Unava ilable LAKSHMIPATHY ., NARENDRANATH Admitting Daphne vailable LAKSHMIPATHY ., NARENDRALPHATH Attending Daphne vailable [facility] Unava ilable DR BLANE THOMAS Consulting Unavailable HERNANDEZ ., ALICIA Admitting Unavailable HERNANDEZ .ALICIA Attending Unavailable HERNANDEZ ., ALICIA Consulting Unavailable [facility] Unava ilable HALKER ., JASON Attending Unavailable HALKER ., JASON Consulting Unavailable LAKSHMIPATHY ., NARENDRANATH Admitting Daphne vailable [facility] Unava ilable HALKER ., JASON Admitting Unavailable HALKER ., JASON Attending Unavailable LAKSHMIPATHY ., NARENDRANATH Consulting Daphne vailable [facility] Unava ilable AGUAYO ., DR ADAM Liu Admitting Unavailable AGUAYO ., DR ADAM Liu Attending Unavailable HERNANDEZ ., ALICIA Consulting Unavailable [facility] Unava ilable HERNANDEZ ., ALICIA Consulting Unavailable AGUAYO ., DR ADAM Liu Attending Unavailable AGUAYO ., DR ADAM Liu Admitting Unavailable [facility] Unava ilable AGUAYO ., DR ADAM Liu Admitting Unavailable AGUAYO ., DR ADAM Liu Attending Unavailable HERNANDEZ ., ALICIA Consulting Unavailable [facility] Unava ilable LAKSHMIPATHY ., NARENDRANATH Admitting Daphne vailable LAKSHMIPATHY ., NARENDRANATH Attending Daphne vailable LAKSHMIPATHY ., NARENDRANATH Consulting Daphne vailable Martine Tobias Unavailable Rumschlanelly, DO Kalie Primary Care Provider Majo, DO Kalie Attending Provider [phone] DO Judith Newman Primary Care Provider [facility] Tobias Attending Provider Rummerry, DO Kalie Primary Care Provider Majo, DO Kalie Attending Provider [phone] Stoney Turner Unavailable Rumschlag, DO Kalie Primary Care Provider Rummerry, DO Kalie Attending Provider Shawn Webb Attending Provider EDWIN MORENO Attending Unavailable AMANDA JUDITH G Referring Unavailable AMANDAGREGGEE G Primary Care Unavailable Jose F ROCHA - PAM, Pastora Nunes Primary Care P rovider PASTORA KOHLER Primary Care Unavailab LOPEZ Noe Referring Unavailable Jennifer Cabrera MD Primary Care Provider Jose F JEW[employer]ER [employer] SAWYER, Pastora Nunes Unavailable Jose F [employer] SAWYER, Pastora Nunes Unavailable Lauren Torres PA-C Attending Provider Jose F JEW[employer]ER [employer] SAWYER-CPastora Primary Care Provider Judith Newman DO Primary Care Provider DAUDI, SAYEEMA N Attending Unavailable DAUDI, SAYEEMA [...] Lauren Montiel PA-C Attending Provider Jose F [employer]WYER-CPastora Primary Care Provider Lili Burgos APRN Attending Provider RICA RODRIGUEZ Attending Unavailable JENNIFER CABRERA Primary Care Unavailable RICA RODRIGUEZ Admitting Unavailable RICA RODRIGUEZ Attending Unavailable Salvador Galo Unavailable JENNIFER CABRERA Primary Care Unavailable RICA RODRIGUEZ Admitting Unavailable Kaya Tomlinson RN Attending Provider Franklin Allen JEWEL [employer] SAWYER-C, Shama Orr Attending Provider Jose F JEW[employer]ER [employer] SAWYER-C, Pastora Primary Care Provider Jose F Pastora Primary Care Unavailable Lauren Torres Admitting Unavailable Lauren Torres Attending Unavailable Lili Burgos Admitting Unavailable Lili Burgos Attending Unavailable Pastora Kohler Primary Care Unavailable Tiffany, Shama E Admitting Unavailable Tiffany Shama E Attending Unavailable Lili Burgos APRN Attending Provider AKANKSHA SANFORD Attending Unavailable AMANDA, JUDITH G Referring Unavailable AMANDA, JUDITH G Primary Care Unavailable AKANKSHA SANFORD Attending Unavailable AMANDA, JUDITH G Referring Unavailable AMANDA, JUDITH G Primary Care Unavailable CANDI VYAS Attending Unavailable PASTORA KOHLER Primary Care Unavailab le AKANKSHA SANFORD Attending Unavailable AMANDA, JUDITH G Referring Unavailable PASTORA KOHLER Primary Care Unavailab dusty RODRIGUEZ JR., RICA Nair Attending Unavaila SEAN Lee Attending Unavailable JR. ARIEL, RICA Nair Referring Unavaila ALEXANDRA Huizar Attending Unavailab dusty OSORIO, ALEXANDRA Nunes Referring Unavailab dusty RODRIGUEZ JR., RICA Nair Attending Unavaila BLANE Orosco Attending Unavailable LAUREN TORRES Attending Unavailable LALITHA TRUJILLO Attending Unavailable JENNIFER CABRERA Attending Unavailable LAUREN TORRES Attending Unavailable LAUREN TORRES Attending Unavailable LAUREN TORRES Attending Unavailable PASTORA KOHLER Attending Unavailab le PASTORA KOHLER Referring Unavailab le LAUREN TORRES Attending Unavailable LAUREN TORRES Attending Unavailable LAUREN TORRES Referring Unavailable PASTORA KOHLER Attending Unavailab le LAUREN TORRES Attending Unavailable HACKMIRZA, ALEXANDRA Nunes Attending Unavailab ALEXANDRA Smith Attending Unavailab le LAUREN TORRES Attending Unavailable KAMPLALITHA CALLAWAY Attending Unavailable KAMPCESIA, LALITHA Attending Unavailable KAMPFER, LALITHA Attending Unavailable KAMPFER, LALITHA Referring Unavailable JENNIFER CABRERA Attending Unavailable PASTORA KOHLER Attending Unavailab le PASTORA KOHLER Referring Unavailab le Medications Current Medications Medication Drug [...] daily as needed April 06, 2023 1:00am Complies with drug therapy Start: 01-07-2023 take 1 tablet by mickey [...] MG PO Daily April 06, 2023 1:00am Complies with drug therapy Start: 01-28-2023 take 1 tablet by mickey [...] MG PO Daily December 17, 2020 12:00am Complies with drug therapy cephalexin 500 mg oral capsule (8 sources) [...] MCG PO Daily April 06, 2023 1:00am Complies with drug therapy Start: 08-01-2022 Start: 08-01-2022 take 1 capsule by mo [facility] every week Start: 08-01-2022 take 1 capsule by [facility] every week Cholecalciferol 1.25 MG (32205 UT) 1 capsule Orally weekly for 56 days Then OtC 4000 u daily therafter Jul, Active take 2 tablets by [facility] every twenty-four hours Vitamin D3 50 MCG (2000 UT) 2 tablets Orally Once a day Not-Taking/PRN take 1 capsule by [facility] every week Cholecalciferol 100 MCG (4000 UT) 1 capsule Orally weekly for 56 days Then OtC 4000 u daily therafter Active take 1 capsule by [facility] every week Cholecalciferol 50 MCG (2000 UT) 1 capsule Orally weekly for 56 days Then OtC 4000 u daily therafter Active take 1 capsule by [facility] every week Cholecalciferol 1.25 MG (87328 UT) 1 capsule Orally weekly for 56 [...] 08-01-2022 ergocalciferol (Carlyn min D2) 1.25 MG (10107 UT) capsule 08/01/2022 Active Start: 08-01-2022 take 1 capsule by mo ut every week ergocalciferol (Vitamin D2) 1.25 MG (69062 UT) capsule TAKE 1 CAPSULE BY MOUTH [...] daily as needed May 11, 2023 12:00am Complies with drug therapy Start: 04-22-2023 End: 05-31-2024 take 1 capsule [...] insulin aspart, human 100 unt/ml pen injector (18 sources) Insulin Analog Start: 04-07-2023 FIASP FLEXTOUC [...] Expect up to 30 u per day Complies with drug therapy 3 ml insulin degludec 100 unt/ml pen injector (20 sources) Insulin Analog Start: 12-30-2023 Insulin Deglud ec (Tresiba Flextouch U-100) 100 unit/mL (3 mL) insulin pen Active 48 UNIT SUBCUT Daily December 30, 2023 10:53am PAP approved thru 02/16/2024 Complies with drug therapy Start: 09-23-2023 End: 12-30-2023 Insulin Degludec (Tresiba [...] mg oral tablet (1 source) Progestin Start: 4 End: 4 take 4 tablets by mouth twice daily megestrol (MEGACE) 40 MG tablet Indications: Endometrial cancer (HCC) Take 4 tablets by mouth 2 times daily 240 tablet 0 06/26/2023 07/26/2023 Active meloxicam 15 mg oral tablet (16 sources) Nonsteroidal Anti-inflammatory Drug Start: 5 take 1 tablet by mouth once daily meloxicam (Mobic) 15 MG tablet Indications: Left hip pain Take 1 tablet (15 mg) by mouth Daily 30 tablet 10/24/2024 Active Start: 08-30-2024 take 1 tablet by mickey th once daily meloxicam (Mobic) 15 MG tablet [...] BY MOUTH TWICE DAILY WITH A MEAL Complies with drug therapy Start: 12-17-2020 End: 12-21-2023 take 1 tablet [...] 05/03/2024 Active Start: 06-15-2023 nystatin (MYCO STATIN) [id number] UNIT/GM powder Indications: Kelsae albicans infection Apply 2 times daily to abdominal and breast folds 60 g 0 06/15/2023 Active omeprazole 20 mg delayed release oral capsule (20 sources) Proton Pump Inhibitor Start: 12-17-2020 End: 04-06-2023 take 1 capsule by mouth once daily at bedtime Omeprazole 20 mg capsule,delayed release(DR/EC) Active 20 MG PO Daily at bedtime April 06, 2023 5:23pm Complies with drug therapy End: 06-03-2023 take 1 tablet by mouth [...] PO Twice daily April 06, 2023 1:00am Complies with drug therapy 1 mg dose 1.5 ml semaglutide 1.34 mg/ml pen injector (2 sources) Start: 05-07-2020 OZEMPIC 1 mg/dose (2 mg/1.5 mL) pen injector 05/07/2020 Active Semaglutide (8 sources) Start: 04-28-2024 inject 2 mg by subcutaneous injection every week Semaglutide (Ozempic) 2 mg/dose (8 mg/3 mL) pen injector Active 2 MG SUBCUT every week 3 April 28, 2024 11:25am *PT TO USE [employer] PATIENT ASSISTANCE VOUCHER FOR 1 MONTH SUPPLY Complies with drug therapy Start: 04-28-2024 inject 2 mg by subcu taneous injection every week Start: 03-30-2024 End: 04-28-2024 inject 2 mg by subcutaneous injection every week Semaglutide (Ozempic) 2 mg/dose (8 mg/3 mL) pen injector Discontinued 2 MG SUBCUT every week 3 March 30, 2024 11:03am April 28, 2024 11:27am [employer] PATIENT ASSISTANCE Start: 05-11-2023 End: 03-30-2024 inject [...] April 28, 2024 11:25am *PT TO USE [employer] PATIENT ASSISTANCE VOUCHER FOR 1 MONTH SUPPLY Start: 03-30-2024 End: 04-28-2024 inject 2 mg by subcutaneous injection every week Semaglutide (Ozempic) 2 mg/dose (8 mg/3 mL) pen injector Discontinued 2 MG SUBCUT every week 3 March 30, 2024 11:03am April 28, 2024 11:27am [facility] PATIENT ASSISTANCE Start: 05-11-2023 End: 03-30-2024 inject [...] Active traMADol hydrochloride 50 mg oral tablet (13 sources) Opioid Agonist Start: 09-08-2024 traMADol (Ultram) [...] tablet by mickey th every six hours [place] Active take 1 tablet by mickey th twice daily as needed [place] 5-325 MG 1 tablet as needed Orally bid Active [id number] 200 actuat albuterol 0.09 mg/actuat metered dose [...] daily 0 Active take 1 tablet by [facility] every twelve hours Baclofen 10 MG 1 [...] 2023 5:13pm fluocinonide 1 mg/ml topical cream (15 sources) Corticosteroid Start: 12-17-2020 End: 12-30-2023 Fluocinonide [...] Active propranolol hydrochloride 10 mg oral tablet (15 sources) beta-Adrenergic Karrie Start: 12-17-2020 End: 12-17-2020 Propranolol 10 mg tablet Discontinued MG December 17, 2020 12:00am December 17, 2020 11:44am Start: 12-17-2020 End: 12-17-2020 Propranolol Discontinued MG TABLET December 17, 2020 12:00am December 17, 2020 11:44am Semaglutide (15 sources) Start: 12-17-2020 End: 04-06-2023 inject 1 [...] syndrome; Translations: [HEMANTH (acute kidney injury)] Episodic Administrative/social admission (20 sources) Dietary counseling and surveillance; Translations: [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 status] Onset: 1 Resolved: 2 Episodic Anxiety disorders (20 sources) Anxiety disorder, unspecified; Translations: [Generalized anxiety disorder] Onset: 7 06-12-2023 Chronic Cancer of uterus (20 sources) Malignant neoplasm of endometrium; Translations: [Malignant neoplasm of endometrium of corpus uteri ] Onset: 4 06-12-2023 Chronic Cancer of uterus (2 sources) H/O: malignant neoplasm; Translations: [Personal history of malignant neoplasm of other parts of uterus] 08-30-2024 Episodic Chronic kidney disease (20 sources) Chronic kidney disease stage 2; Translations: [Chronic kidney disease, stage 2 (mild)] Onset: 5 04-12-2024 Chronic Chronic obstructive pulmonary disease and bronchiectasis (2 sources) Bronchitis; Translations: [Bronchitis, not specified as acute or chronic] 01-19-2024 Episodic Deficiency and other anemia (7 sources) Iron deficiency anemia; Translations: [Iron deficiency anemia, unspecified] Onset: 5 11-17-2024 Episodic Diabetes mellitus with complications (20 sources) Hyperglycemia due to type 2 diabetes mellitus; Translations: [Type 2 diabetes mellitus with hyperglycemia] Onset: 1 Resolved: 2 Chronic Comment on above: Download and evaluat ion of Meter. Diabetes mellitus without complication (20 sources) Type 2 diabetes mellitus without complications; Translations: [Type 2 diabetes mellitus without complication] Onset: 7 04-12-2024 Chronic Disorders of lipid metabolism (20 sources) Hyperlipidemia; Translations: [Hyperlipidemia, unspecified] Onset: 1 Resolved: 2 Chronic Esophageal disorders (20 sources) Gastro-esophageal reflux disease without esophagitis; Translations: [Gastroesophageal reflux disease without esophagitis] Onset: 7 06-12-2023 Chronic Essential hypertension (20 sources) Essential (primary) hypertension; Translations: [Benign essential hypertension] Onset: 9 Resolved: 2 Chronic Genitourinary symptoms and ill-defined conditions (7 sources) Proteinuria, unspecified; Translations: [Dysuria] Onset: 1 Resolved: 1 Episodic Heart valve disorders (20 sources) Aortic valve stenosis; Translations: [Nonrheumatic aortic (valve) stenosis] Onset: 4 04-12-2024 Chronic Immunizations and screening for infectious disease (2 sources) Vaccination needed; Translations: [Encounter for immunization] 11-21-2024 Episodic Joint disorders and dislocations; trauma-related (20 sources) Derangement of left knee; Translations: [Unspecified internal derangement of left knee] Onset: 3 06-12-2023 Chronic Mood disorders (20 sources) Recurrent major depression in partial remission; Translations: [Major depressive disorder, recurrent, in partial remission] Onset: 7 06-12-2023 Chronic Nutritional deficiencies (20 sources) Vitamin D deficiency; Translations: [Vitamin D deficiency, unspecified] Onset: 2 Resolved: 2 Chronic Osteoarthritis (20 sources) Unilateral primary osteoarthritis, right knee; Translations: [Osteoarthritis of left knee joint] Onset: 7 01-03-2021 Chronic Osteoporosis (14 sources) Senile osteoporosis; Translations: [Age-related osteoporosis without current pathological fracture] Chronic Other aftercare (4 sources) Aftercare following joint replacement surgery; Translations: [AFTERCARE FOLLOWING JOINT REPLACEMENT SURGERY] Onset: 7 Chronic Other aftercare (15 sources) manager intermediate (current) use of insulin; Translations: [Long-term (current) use of insulin] Onset: 1 Resolved: 2 Episodic Other aftercare (5 sources) 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 status; Translations: [FDC (current) use of insulin] 05-11-2023 Episodic Other bone disease and musculoskeletal deformities (2 sources) Pain in femur; Translations: [Other specified disorders of bone, thigh] 11-21-2024 Episodic Other connective tissue disease (1 source) Presence of right artificial knee joint; Translations: [PRESENCE OF RIGHT ARTIFICIAL KNEE JOINT] Onset: 7 Chronic Other connective tissue disease (15 sources) History of total knee arthroplasty; Translations: [Presence of left artificial knee joint] 01-03-2021 Chronic Other connective tissue disease (20 sources) Artificial knee joint present; Translations: [Presence of unspecified artificial knee joint] Onset: 3 06-12-2023 Chronic Other connective tissue disease (1 [...] right shoulder, not specified as traumatic] Onset: 5 Episodic Other connective tissue disease (2 sources) Pain in lower limb Onset: 5 Episodic Other inflammatory condition of skin (20 sources) Erythrodermic psoriasis; Translations: [Other psoriasis] Onset: 3 06-12-2023 Chronic Other lower respiratory disease (4 sources) Wheezing; Translations: [Wheezing] 01-19-2024 Episodic Other lower respiratory disease (2 sources) Dyspnea; Translations: [Shortness of breath] 04-12-2024 Episodic Other nervous system disorders (4 sources) Other specified mononeuropathies of right lower limb; Translations: [OTH SPEC MONONEUROPATH RT LOW LIMB] Onset: 3 Chronic Other nervous system disorders (2 sources) Other chronic pain; Translations: [OTHER CHRONIC PAIN] Onset: 3 Chronic Other nervous system disorders (6 sources) Chronic pain; Translations: [Other chronic pain] Chronic Other nervous system disorders (20 sources) Carpal tunnel syndrome; Translations: [Carpal tunnel syndrome, unspecified upper limb] Onset: 2 06-12-2023 Chronic Other nervous system disorders (20 sources) Chronic pain syndrome; Translations: [Chronic pain syndrome] Onset: 7 06-12-2023 Chronic Other nervous system disorders (20 sources) Difficulty walking; Translations: [Difficulty in walking, not elsewhere classified] Onset: 3 06-12-2023 Chronic Other nervous system disorders (7 sources) Neuropathy; Translations: [Polyneuropathy, unspecified] Onset: 5 11-17-2024 Chronic Other nervous system disorders (9 sources) [...] of right shoulder, not elsewhere classified] Onset: 5 Chronic Other non-traumatic joint disorders (3 sources) Pain in right knee; Translations: [Pain in joint, lower leg] Onset: 7 08-02-2024 Episodic Other non-traumatic joint disorders (1 source) Pain in right hip; Translations: [PAIN IN RIGHT HIP] Onset: 3 Episodic Other non-traumatic joint disorders (4 sources) Pain in left knee; Translations: [Pain in joint, lower leg] 11-19-2023 Episodic Other non-traumatic joint disorders (10 sources) Pain in right shoulder; Translations: [Pain in joint, shoulder region] 12-28-2023 Episodic Other nutritional; endocrine; and metabolic disorders (1 source) Morbid (severe) obesity due to excess calories; Translations: [MORBID (SEVERE) OBESITY DUE TO EXCESS CALORIES] Onset: 7 Chronic Other nutritional; endocrine; and metabolic disorders (20 sources) Obesity; Translations: [Obesity] Onset: 3 06-12-2023 Chronic Other nutritional; endocrine; and metabolic disorders (20 sources) Body mass index 40+ - severely obese; Translations: [Body mass index (BMI) 50.0-59.9, adult] Onset: 3 12-22-2022 Chronic Other nutritional; endocrine; and metabolic disorders (6 sources) Body mass index (BMI) 45.0-49.9, adult; Translations: [BMI 45.0-49.9, adult Z68.42] Onset: 1 Resolved: 2 Chronic Other nutritional; endocrine; and metabolic disorders [...] plantaris] 05-23-2024 Episodic Other upper respiratory infections (5 sources) Acute pansinusitis; Translations: [Acute pansinusitis, unspecified] 04-12-2024 Episodic Peripheral and visceral atherosclerosis (7 sources) Peripheral vascular disease; Translations: [Peripheral vascular disease, unspecified] Onset: 5 11-17-2024 Chronic Residual codes; unclassified (20 sources) Sleep apnea; Translations: [Sleep apnea, unspecified] Onset: 4 04-12-2024 Chronic Residual codes; unclassified (1 source) Asymptomatic menopausal state Episodic Residual codes; unclassified (8 sources) History of arthroscopic procedure on shoulder; Translations: [Other specified postprocedural states] 06-21-2024 Episodic Residual codes; unclassified (7 sources) Edema; Translations: [Edema, unspecified] Onset: 5 11-17-2024 Episodic Screening or history of mental health and substance abuse (5 sources) Personal history of nicotine dependence; Translations: [Encounter for screening for depression] Onset: 7 Episodic Spondylosis; intervertebral disc disorders; other back problems (20 sources) Spondylosis without myelopathy or radiculopathy, lumbar region; Translations: [Postlaminectomy syndrome, not elsewhere classified] Onset: 9 Chronic Substance-related disorders (2 sources) Opioid dependence; Translations: [Opioid dependence, uncomplicated] 03-05-2024 Chronic Unclassified (12 sources) Body mass index (BMI) 50-59.9 , adult; Translations: [BODY MASS INDEX (BMI) 50-59.9 , ADULT] Onset: 7 Resolved: 1 Chronic Unclassified (1 source) manager intermediate (current) use of oral hypoglycemic drugs; Translations: [NURSING HOME (CURRENT) USE OF ORAL HYPOGLYCEMIC DRUGS] Onset: 7 Unclassified (2 sources) Unknown / UNK(Unknown) Onset: 7 Unclassified (1 source) Other specified depressive episodes; Translations: [OTHER SPECIFIED DEPRESSIVE EPISODES] Onset: 7 Unclassified (4 sources) LOW BACK PAIN, UNSPECIFIED; Translations: [LOW BACK PAIN, UNSPECIFIED] Onset: 2 Unclassified (1 source) New Patient Onset: 4 Unclassified (2 sources) Biceps tendinitis, right 03-16-2024 Past or Other Problems Problem Classification Problem Date Documented Date Episodic/Chronic Complications of surgical procedures or medical care (1 source) Infection following a procedure, initial encounter; Translations: [INFECTION FOLLOWING A PROCEDURE, INITIAL ENCOUNTER] Onset: 09-20-2016 Episodic Deficiency and other anemia (7 sources) Anemia; Translations: [Anemia, unspecified] Onset: 11-17-2024 Resolved: 11-17-2024 11-17-2024 Episodic Mood disorders (16 sources) Mood disorders Onset: 08-30-2024 08-30-2024 Other aftercare (20 sources) Long-term current use of insulin; Translations: [manager intermediate (current) use of insulin] Onset: 04-12-2024 05-11-2023 [...] Name Value Interpretation Reference Range Facility XR FEMUR 2+ VW LEFTon 2024 XR FEMUR 2+ VW LEFT Left femur. HISTORY: Chronic pain. No known injury. FINDINGS: Bipolar noncemented left knee replacement. No abnormal lucency bone prosthetic interface. Femoral and tibial components within anatomic alignment. Moderate narrowing left hip joint. No fracture, dislocations, or bone lesions identified. IMPRESSION: Moderate degenerative change left hip. Left knee arthroplasty. ELECTRONICALLY SIGNED BY: Pj Dang MD Normal Not Available XR Femur - left 2 Viewson Moderate degenerativ e change left hip. Left knee arthroplasty. ELECTRONICALLY SIGNED BY: Pj Dang MD IMAGING Left femur. HISTORY: Chronic pain. No known injury. FINDINGS: Bipolar noncemented left knee replacement. No abnormal lucency bone prosthetic interface. Femoral and tibial components within anatomic alignment. Moderate narrowing left hip joint. No fracture, dislocations, or bone lesions identified. IMAGING Pj Dang MD - 11/21/2024 Left femur. HISTORY: Chronic pain. No known injury. FINDINGS: Bipolar noncemented left knee replacement. No abnormal lucency bone prosthetic interface. Femoral and tibial components within anatomic alignment. Moderate narrowing left hip joint. No fracture, dislocations, or bone lesions identified. IMPRESSION: Moderate degenerative change left hip. Left knee arthroplasty. ELECTRONICALLY SIGNED BY: jP Dang MD [facility] Radiology Study observation (narrative) [facility] XR Femur - left 2 ViewsOrder ed By: Pj Dang on 11-21-2024 [facility] Work Phone: Laboratory - Microbiology an d Antimicrobial susceptibilityon 11-17-2024 S. pyogenes Ag Ql (Throat) Negative Negative, None Detected [facility] SARS-CoV-2 (COVID-19) RNA GEOFFREY+probe Ql (Unsp spec) Negative [facility] No Panel Informationon 11-17 [facility] FLU A Negative [facility] FLU B Negative [facility] Magnetic resonance imaging r eportOrdered By: Chalino Peacock on 10-31-2024 Study report [facility] [address] MRI Report Signed Patient: Lesli Clay R#: [id number] : 1960 Acct:[id number] Age/Sex: 64 / F ADM Date: 5 Loc: MR Room: Type: [facility] Attending Dr: Shama SANZ Copies to: [facility]~ Ordering Provider: [facility] Date of Service: 10/31/24 MR/MR lumbar spine wo con: LUMBAR STENOSIS W/NEURO CLAUDICATION ([id number]) XR/XR pre/post mri xray: LUMBAR STENOSIS W/NEURO [...] Peacock M.D. 10/31/2024 4:31 PM Dictation Location: [place] [address] Transcribed By: [facility] 10/31/24 1631 Dictated By: Chalino ePacock MD 10/31/24 1615 Signed By: 10/31/24 1631 [facility] Work Phone: XR pre/post mri xrayon 10-31 XR pre/post mri xray [facility] [place] [address] MRI Report Signed Patient: Lesli Clay MR#: [id number] : 1960 Acct:[id number] Age/Sex: 64 / F ADM Date: 10/31/24 Loc: Room: Type: [facility] Attending Dr: Shama SANZ Copies to: [facility] Ordering Provider: [facility] Date of Service: 10/31/24 MR/MR lumbar spine wo con: LUMBAR STENOSIS W/NEURO CLAUDICATION ([id number]) XR/XR pre/post mri xray: LUMBAR STENOSIS W/NEURO [...] Peacock M.D. 10/31/2024 4:31 PM Dictation Location: [place] [address] Transcribed By: [facility] 10/31/24 1631 Dictated By: Chalino Peacock MD 10/31/24 1615 Signed By: 10/31/24 1631 Normal [facility] Physician [facility] XR LUMBAR SPINE 4+ VIEWS WIT H [...] BY AUTOMATED COUNT 0.0 10*3/uL Normal 0.0-0.2 [facility] Comment on above: Performed By: #### C BCA #### [facility] ([address] [address] VIR BASOPHILS RELATIVE PERCENT BY AUTOMATED COUNT 0.5 % Normal [facility] [place] Comment on above: Performed By: #### C BCA #### [facility] ([address] [address] VIR CELLAVISION DIFFERENTIAL TYPE AUTOMATED DIFFERENTIAL Normal [facility] Comment on above: Performed By: #### C BCA #### [facility] ([address] [address] VIR Eosinophils (Bld) [#/Vol] 0.2 10*3/uL Normal 0.0-0.4 [facility] [place] Comment on above: Performed By: #### C BCA #### [facility] ([address] [address] VIR EOSINOPHILS RELATIVE PERCENT BY AUTOMATED COUNT 2.2 % Normal [facility] [place] Comment on above: Performed By: #### C BCA #### [facility] ([address] [address] VIR Erythrocyte distribution width (RBC) [Ratio] 17.0 % High 11.5-15 [facility] [place] Comment on above: Performed By: #### C BCA #### [facility] ([address] [address] VIR Hematocrit (Bld) [Volume fraction] 34.2 % Low 35-47 [facility] [place] Comment on above: Performed By: #### C BCA #### [facility] ([address] [address] VIR Hemoglobin (Bld) [Mass/Vol] 11.3 g/dL Low 11.7-15.5 [facility] [place] Comment on above: Performed By: #### C BCA #### [facility] ([address] [address] VIR LYMPHOCYTES ABSOLUTE COUNT (10*3/UL) BY AUTOMATED COUNT 1.9 10*3/uL Normal 1.0-3.5 [facility] [place] Comment on above: Performed By: #### C BCA #### [facility] ([address] [address] VIR LYMPHOCYTES RELATIVE PERCENT BY AUTOMATED COUNT 19.6 % Normal [facility] [place] Comment on above: Performed By: #### C BCA #### [facility] ([address] [address] VIR MCH (RBC) [Entitic mass] 27.2 pg Normal 27-34 [facility] [place] Comment on above: Performed By: #### C BCA #### [facility] ([address] [address] VIR MCHC (RBC) [Mass/Vol] 33.0 g/dL Normal 32-36 [facility] Comment on above: Performed By: #### C BCA #### [facility] ([address] [address] VIR MCV (RBC) [Entitic vol] 83 fL Normal 80-100 [facility] Comment on above: Performed By: #### C BCA #### [facility] ([address] [address] VIR MONOCYTES ABSOLUTE COUNT (10*3/UL) BY AUTOMATED COUNT 0.6 10*3/uL Normal 0.0-0.9 [facility] [place] Comment on above: Performed By: #### C BCA #### [facility] ([address] [address] VIR MONOCYTES RELATIVE PERCENT BY AUTOMATED COUNT 6.7 % Normal [facility] [place] Comment on above: Performed By: #### C BCA #### [facility] ([address] [address] VIR NEUTROPHILS ABSOLUTE COUNT BY AUTOMATED COUNT 6.8 10*3/uL High 1.5-6.6 [facility] [place] Comment on above: Performed By: #### C BCA #### [facility] ([address] [address] VIR NEUTROPHILS RELATIVE PERCENT BY AUTOMATED COUNT 71.0 % Normal [facility] [place] Comment on above: Performed By: #### C BCA #### [facility] ([address] [address] VIR Platelet mean volume (Bld) [Entitic vol] 7.4 fL Normal 7-12 [facility] [place] Comment on above: Performed By: #### C BCA #### [facility] ([address] [address] VIR Platelets (Bld) [#/Vol] 294 10*3/uL Normal 150-450 [facility] [place] Comment on above: Performed By: #### C BCA #### [facility] ([address] [address] VIR RBC COUNT 4.14 X10E12/L Normal 3.8-5.2 [facility] [place] Comment on above: Performed By: #### C BCA #### [facility]) [address] [place] [address] VIR WBC (Bld) [#/Vol] 9.6 10*3/uL Normal 4-11 [facility] Comment on above: Performed By: #### C BCA #### [facility] ([address] [place] [address] VIR COMPREHENSIVE METABOLIC PANE Gonzalo 09-07-2024 Albumin [Mass/Vol] 3.6 g/dL Normal 3.2-5.3 [facility] Comment on above: Performed By: #### C MP #### [facility] ([address] [place] [address] VIR ALP [Catalytic activity/Vol] 104 U/L Normal 39-130 [facility] [place] Comment on above: Performed By: #### C MP #### [facility] ([address] [place] [address] VIR ALT [Catalytic activity/Vol] 33 U/L High <=31 [facility] Comment on above: Performed By: #### C MP #### [facility] ([address] [place] [address] VIR Anion gap [Moles/Vol] 9 mmol/L Normal 5-15 [facility] Comment on above: Performed By: #### C MP #### [facility] ([address] [place] [address] VIR AST [Catalytic activity/Vol] 24 U/L Normal <=41 [facility] Comment on above: Performed By: #### C MP #### [facility] ([address] [place] [address] VIR Bilirubin [Mass/Vol] 0.5 mg/dL Normal 0.3-1.2 [facility] Comment on above: Performed By: #### C MP #### [facility] ([address] [place] [address] VIR Calcium [Mass/Vol] 9.3 mg/dL Normal 8.5-10.5 [facility] Comment on above: Performed By: #### C MP #### [facility] ([facility]) [address] [place] [address] [place] [address] VIR Chloride [Moles/Vol] 99 mmol/L Normal 98-109 [facility] Comment on above: Performed By: #### C MP #### [facility] ([address] [place] [address] VIR CO2 [Moles/Vol] 29 mmol/L Normal 22-32 [facility] Comment on above: Performed By: #### C MP #### [facility] ([address] [place] [address] VIR Creatinine [Mass/Vol] 0.74 mg/dL Normal 0.40-1.00 [facility] Comment on above: Result Comment: METH OD TRACEABLE TO IDMS STANDARD Performed By: #### C MP #### [facility] ([address] [place] [address] VIR GFR/1.73 sq M.predicted among non-blacks MDRD (S/P/Bld) [Vol rate/Area] 90 mL/min/{1.73_m2} Normal >=60 [facility] Comment on above: Result Comment: eGFR not reported due to non-numeric value for Creatinine. Reported eGFR is based on the CKD-EPI 2021 equation that does not use a race coefficient. Performed By: #### C MP #### [facility] ([address] [place] [address] VIR Glucose [Mass/Vol] 145 mg/dL High 65-99 [facility] Comment on above: Performed By: #### C MP #### [facility] ([address] [place] [address] VIR Potassium [Moles/Vol] 4.7 mmol/L Normal 3.5-5.0 [facility] Comment on above: Performed By: #### C MP #### [facility] ([address] [place] [address] VIR Protein [Mass/Vol] 7.6 g/dL Normal 6.0-8.0 [facility] Comment on above: Performed By: #### C MP #### [facility] ([address] [place] [address] VIR Sodium [Moles/Vol] 137 mmol/L Normal 134-146 [facility] Comment on above: Performed By: #### C MP #### [facility] ([address] [place] [address] VIR Urea nitrogen [Mass/Vol] 20 mg/dL Normal 5-27 [facility] Comment on above: Performed By: #### C MP #### [facility] ([address] [address] VIR LACTATE W/ REFLEXon 09-08-19 25 LACTATE W/REFLEX 1.3 mmol/L Normal 0.4-2.0 [facility] Comment on above: Order Comment: Resul t did not trigger repeat Lactate, re-order if needed. Performed By: #### L ACTS #### [facility] ([address] [place] [address] VIR Laboratory - Hematology and Cell countsOrdered By: Allison Teixeira on 08-30-2024 HbA1c (Bld) [Mass fraction] 8.4 % [facility] XR KNEE 4+ VIEWS RIGHTon XR KNEE [...] Coding Summaryon 06-22-2024 Coding Summary HTMLBase 64 IiacqfeaHKu4eEy+PGhlYWQ+P Z0MNICfG52teKPnfE4yD5CZEL lOSywgQVBQTElOSyIgbmFtZT1 kaXNjZXJu IC8+DL1tZHTzLwwwoCYaw5G7f JO6S92ijb9rIStxlDL3XTHyUr Ucynvca3ekdUg6FVfzWwymAfV t LVIgjI38SCM2eH42Fn60lFCxz FXvr5yxwYm6OoDbKZZgPGU1jI ksJJpaq4MmOACpU91djECsw2M 6 IHZbmInjdURkMsLfdNU5pR7zN Hwyfjtzc0urbxtxNsh4de00kL Hdp4L1uVF4P7DthsZ3KXPyiTG g IkgbhFKYaP4tadpon9daoekoL oVaRRGcLZy6UMu7YRMjzZggXw YmCH34DBT3AVAwwtLtB0UeIAE s uImcTzD6b5D5Bo2WI3RHLrfxL 1VNTUFSWTwvdGQ+OV77xs74Z6 YiGezfTit2ANEeXQN8wYP0bH7 n JJZjTUqcl1G6cUO5P0JxzwUvx p3xn6xcCRZiDBngJ81hrOCbm9 B7SIMcwZO3CIHcwNriJjHxeX3 3 Oyc+QSWfvBenu9KeTvziz6abw 1mmdAb4GhjrQJFblsEvxRwrGI C1k9SfUo5uWWErfHL0jMU9dK2 i FjNaAiG7BBceK214YsQwtBOkC bkyB96pG1UyuKP+CTKvJzp0GO CzeSwfGA5oZ1MtXCMxuuoufDQ m hNpdCV3fWYDtujjoEUXxbY7aO HKdM3c0VnDpKgF5KPjtC5DlEB GlchxuQj94dG1qOeEwZdV6XBx u K3GrbdM0LPRnhUCzYNyrGKB9Z 10ta3F4DTMvHHVeHCM9iHZ1hC 1hbGlnbjogbGVmdDsgdmVydGl j ALvgCGpcO644AICewHpjZbEqB GluZyBEYXRlOiAgMDUvMDcvMj AyNTwvdGQ+KXJrKVT0tFgyJKM n gPVvXCnlBw2dyKyzhSprKS8xP XMtdlasEZGbkC9wKRKrvIQpnA eoUL0eAGYpqemwt095BxQaJQS 0 EYLjcRCaA3WctM9vGoWgCLNqO YLeM3LnpEEjHGeiK346GLtjEj K8YDSducPqY1QsHBQabTogQhL 0 q1F3Lo2Vo0BehjwkR5FtqIJwP jXbHrxpCPw4Y5PdLimvjAY+PC 20ULNhLV17VBj9VQT9lAjgTEs i NTJxM1KjqM2yRmQxSEDrJGExA yc+PHRhYmxlIHdpZHRoPScxMD EeWpDepGszGH6uBa3dSVIkONY v kHzsbLQhFqIbb2hvCWZlIWnpV S7owXzvL9VmwYG3WAYjt8l1Hm 30Q21rL5ItjUC+EOZlsTK4hCB 0 tY4aJwTqMgM6EFzsF273HvRnh QFkGjxws2tpe1fpxPt4FtK3DK BwyfWbuFszFWO9h3TzCf46S03 s IHdpZHRoPSIxNSUiIHZhbGlnb l0iyH1qKv0+CHEwkEQ0uHH5vN 9pAuSeIeT4SZcfK908OdCjeUW v Fzbzf3avy8dtxOf4WePcKBBkt dGqhFfzXYJ5l6RfWd28I5TeuL nof8NlLzp4dd11bSOpj8V2pOE 9 M9DyWXOzcwzbkUKkiGajMK9jI SWtpksyFCUpyO1yZBHgJ0v9Pi HaNpX7GQgmL0GzdaS3KUMirWM g UWUhsHYPdS1oumowy1cbiwmaB mYtHEMjAJa2FMf7JTFppJnhHw NhKDN5VhS9PRA9dLWkjC5xqLn n oylguL1lBxe+GBE4dKJvtUYSO D8nFwirzGV+AOIxANF3vZzvTD zdZXNhlQ7aKCRxE7d7LoQgHnS 1 LOnvY5WastS6QZSxfXBtBWVdd BWWiG1dhcxck4gbtugrGzLxAD DkMUg1WSo3VZKlmLofAqYzDFD 0 LzV8BJV3mWHwoD5ywMqnsokmo G9wOyc+IdestRldEWX8JLv8U9 ZdAnp0UMDlwAtkFY1vdRVpHBl u Kj1hnEdzeTqbFR0oJHJcvlgvn 670FpLym9cfSJSshWQeJJzsTW V2L49sj3U8BAAcAHTiZYF1eTS 4 dO9paIbcoiovzSHixBmghxHxn IffBUvcMJiyG716CTOgpIjnGx TpCUz3F5VpWlk8PSEuwGebYA4 n nSQeTSlgYj3vkKisaSmrTR6gR XPkjobtf241EsYte7jzWKFoqD YeGQakBBV2T44ic9I2TANmXHO w ZZR1oKE4rI6neGmfyhjgxWSuz EordiYqyQhkFYupHHlhC166DV FprDzqIlKttNt0S0GyNmt1XGL z hKgiKX3kgEIwXItyUm2xnSasc JwpSX4cXKRfumyuj962GnNsg4 gcEFGzeJGcHPbcPPN0A83mz8T 6 EPOxRNTgKMT5jRP9lZ6exCwgf jogbGVmdDsgdmVydGljYWwtYW ltW776DGPxjByhTeOquIuwymL g CHnqNJp7V5LuKpyjfTE+PC90Y ICgGX63jMLbxXZuy5pnrAk0Tx BjDJXzWUR4dIecHYnku0DdMJY t W49jlVOuk5N0TDEshYahpXKhQ tIgsAR0kC1yYNuxcdtii9bjtj fdGtonh9hhbx49sM68E30mSLa p OBDsSWAoHCHoYKIrhCpvtw8tr G9wIi8+NFGxxTL6zWF4jO6uZT CqAjP5SMteS744DxFrqXUxKgs j s3jmv0qgaXt2UjJ1DHWcsaDxd NnrTPE6u9AkKb84C22sZZxeKB YzWHToEIYnJPFciUjmnp5hpY3 w Ii8+GZFocJK9qUF5kG1mSlWxZ cG1IHdwS500SvIuyMEnIdjpC6 1eR9DqpJL+SYRyCwx3MMUebRj s CM6nmUVwZJlgOc9aRKB6SuRxF oIlRPypW2LeNIMhxubugjjwcP G2ZVAyBJLapO04Bj4clQnxYCF w bMPXtN9mgyuqu5caqcrkOhCtV VMrNCe2SYs8RQJffVnhFzZsIJ Z8SbS1VHL5aKHuyG0ijRjogjb g cD9yO3PdTAIcnqvoJw06kH5rW uFrIeB4BBtsTen+JB7YXHFVYK DXDFALCHNMQMZBWR0SYV49B5D k Ysb8SSUtbTcnUL5ksCPtQUzlO y9uwZdzoPgfXT8vMLVqcybaLY YftY1qKKJvnFHyeTcdNR8vWLI p svwmd556EqOqZDJ2KRLheRQnY 6LdfQ8eJbVoSJWnACWaL1KstH SuLTlxS599FGvvAjY2VERrtwV p N3IwYFHfrLmsKmT1z7W4Tb3jS X2qAI5wCEEsPX37YP58yMAuw1 S5nAY0P4ZyZEUxnhkvfngmqKN 6 FYUySUIwkN12eJZhDLmiPv5jl 7E3d150VSYyZQQenJ18Cr7phL mbGRSlmULWkD5jskexu2bapzi g LmRnCTMvOHi7FAu7YBAsiFcwC wHjTJR0SaE9KTU7jZRbxN9qqR lpvnyfaS9gXbz+NjQgWWVhcnM 8 Q6AgHng1SDWhnFnyOD0chVYfR VnhIi8oaThlsXuaLP9fDNTumi ceJVIhlH1tQFNdxJFqeYjqKI4 w TLWprauds528YhTsOLG3XOJtd XBjG4GzoD3qBgMgJSYpWNMfG6 BqcBMsIObyO920WHecDcJ1RNK l huAvA3XpTHCozPffRxM0j9K9Z a1RDB2ZFLS4D8IzNfv1FCNtfP zwQR9hoOToIGjkPt2ovVizoHi g MF4bYQOylxrlSRJawM3sBXGzz ZLasFdbAV4lVUGvfqfke372Pl KlAQT6IDSrzGYfS8FviV0mOcN j MFMqPEHvL3PfvFBfLYyaP261P JraJjH9EMFmjmGaG7ZhDNKsfS gxStE0y4Z7Jz3KMJlhR6UjH1X y eTwvdGQ+GO36tn91B7YdLkykO vf7EDRtFXS0gWW0fC8yZNDeBK uxt7B7dHT5M3VjzfZjtz2hu1l s KKQcNVppC00vzYUpq4A8MEYlx IN9GJBykLnhTqUqrU04Xop+PG ZbsMtuo1BpVhmbz0gfu7wywOv 9 TiNmXUUpqmKrcGekKLR8r0XkT c99W76aVJctJBTcIBLvVVEpMW IxmXjnut7thX4yRq8+PGNvbCB 3 eRU9iD8aZvJyZyX3SPhvX445Y hFpvICvBpbrd7rpy9zcyTc9We AaVBFnrbQbuRznFSP7i2TxFt8 8 I8QekZnzi2JfQot9jw38iAXle 9Y2aVI2M2RlJVOeprdwlUEnhJ gaLT5vMIFshjjqXQHonZ8xXQB p X8o6JpCwJhV9QFfdE2ErhwG8I FNkuPNlCRKajPCZoP6lbgvgd6 nccfyfEnYoLQCsHBl8ZTo8SKU s vDxkNnQqOSV5NcX4ERP8cXNoo M5igLnzdkswzY6jEth+UGh5c2 jjqZKrUX4zuTD0DU80UB62wWO g g2Y7rWI7N8WfBGZdohyoapfal FO2FPHlQCBrgX80Rc8kdXhjKj 8jQLDcKDJ7PKWgvTBtP5RdhW8 y TgEvQCDiMCGoB6XjqUFjXFmnZ 371UYfcVvS1ETBsurMtS6JnOD BkiBfgBnY4z7P1Eg3LOE75SU8 0 HE06eEBro1T5hWQ9L9OtQMKlu idiatejwHV7PABsSOBahD57Qt 5xbRukUl8ySDQhCGD5QCToqUD z Z8SboJ6mNrLfCLKzNAOiU7Wpl ATrUOfiI390JDbuGfY8FOGcac TbJ9PgGEMlqVggPoJ4m8D7Or4 N Xj27YE36XN96qTZdc2B9mNL5D 2ZwBZNxvbhdrianrXS6LSUmFM VkxS84Ep3qpTmpUg7mJGLpELP 0 OODwoFFyI0OrgF2qEuOoPJXaS UAsC9DjgMKdIWsqE825WIgyGi O1DRJkqyZmO7DcZSQehOgbEcC 0 m1Y1Ll2ZZQlubbo4J1UqZicfk HI+BB35UZBvLD71pIQcmLHrh8 vmvYg5HfOxTLLrVUL2pVcwVUr i b3J (more content not included)... [facility] Coding Summary HTMLBase 64 RrprpxawYLf5lPt+PGhlYWQ+P H5DAICnB62ufLPkkW0fH7GVTM lOSywgQVBQTElOSyIgbmFtZT1 kaXNjZXJu IC8+PB5xPRKjGnuulMLqt2G9g QL2B93cae2xWPiqeSN0HJIaJm Nfkrgaj8rahGc9KXjzKndoVkS t WEIxiC30DSF1pD03Hq26qYIco PIhw0ohyHc9PbUzVQFfDKH5aD unCRrtq8RgWLYpZ09rnMXvg6X 6 ZPXesLwqmKUuMgNhtZM0sL3lQ Efjdmqoa8nphuqiUhm0ex43lT Nny1F4sAK1Z1AxslN2KXKorJU g OngcqMAZvP3udnzgi3ehyazeR tFtNXUfXRg0HYy5BFSoxPpfIu NjIG57SWC5MLKdjcEhM5JjFAC s kSwjRiC7v3J3Oe9NJ7VURwyfM 1VNTUFSWTwvdGQ+TN93pa52O7 NqWjobNuo8NNDuBUC0nDR2rB9 n TUAiRTveu4N8iMH0R0AlmdEhk g9ln2acWXCeKIwvA73ajMPik3 D5RANskPQ3KODsoNryWwAxhF3 3 Oyc+IXRvgHfyt5MeXstwo6tdl 4kanPj5AlvfNEYzwgIwbSupBI Q3n0GsNr3jYMIhfSN7nTD8kW8 i QxRtHgF1THobC459OzUehGCyC dbzY42yW2YpoFG+QAOrJgr7PN VpuInyVL1nS3ZjLCByljvqnOJ m eHmqQP0iRLCtbcmjMJYjzH1lE AKcS7n8KxIaKvF1LJvaK2HmWR ZjfoywHi21mI5oWuRaWrF0JFu u F2CnxgF3MAIwaKQoQIgmNBP9T 82ma3J6YWMoKXYgUOY2mKQ3cR 1hbGlnbjogbGVmdDsgdmVydGl j MJdyWAmoH538NZCdjGsgOiFgM GluZyBEYXRlOiAgMDUvMDcvMj AyNTwvdGQ+HVKeYVS0fJaoOFZ n mBZcUAtpDz4nrNgngByoRH0bC FFbdwbxPQDzfD6vRADtpOJajY waEP4gCWJwmtyly880HfLnGNK 0 FSXkpIGuK2NxnI4fZfEtFPUxK AGvJ5CndADeDZtiO395HVkxQg U4MVJxufOxK8OxDAGabNzkVuK 0 x3J9Jr7Me5RrdhblU1GquLDdO vTvDrtdHCe8G1CpBbuyyJE+PC 17IYNyWC67GXw2MRO4hIjdHNi i LXJsE1ObvU1kKsOyELWrWZFcR yc+PHRhYmxlIHdpZHRoPScxMD JjOoRrxUjeBX8lOb4aWWXwELN v bPxqqVAhPwExy5vhZUYoXGbrZ C2boNhjQ1CfzRX0TIQag9q1Xo 04O17xE0ZhvCO+PYWpaAI6pHO 0 gI3bBrLdEwX8GNlgT311EnQem AVnZmoxk1kdn8gjuDr8FgJ6JG ZiifNyiPsqVJW5e7RzXk68V37 s IHdpZHRoPSIxNSUiIHZhbGlnb h0rnC7mPx5+MMJrkVW2iZA5aP 5bKuDzBeK3FIbaJ905QuTidLT v Nojgd1gfj8vsiEf9ZcUgPMOsc zAoiMnpAJW6u3FmGq22Y5WlyB ewd2EqJtq8yd82eQSra5H2wJQ 9 D7GgIIGhsqtdtVPmeKdpIR5fI AVwxgumDIOwrH2jWSYiP6a0Rs ZgEmN2ACzbA7NooxP9OVNrtVA g TNIamSBDeS3cnhugd7dppemfE vHdURLqFEh3VOx6IEIxnAiyCt BjTQA4JlC5NYX2cCYtqZ4udSf n zdwzbG6gIvg+MMO1cCCncOAOM C1jYbagdGM+GZTbKHE3lGlaRP omTYDbfO7rGZXkG5p9IgYlCuZ 1 QTpgR2GadpD7FERfmNYbXABnw YKTzF5vwsjvb6ubwkxpThNsVD IwVEm0QMe6HQXolQrvGcNcXPW 0 CxN8QJH8gNZmfO3reWxfmhumt G9wOyc+BkzprJunBCS6YTt0P4 LnQao5SLTemZxjQT1ntKBuPOw u Xy7cgPtkdSqwGP9dDPUcuyfod 868UoMnk5rlVGGobYWmOPhyKM K2U80sv1Y3SILqDILfFWR2uDN 4 bQ0etRagxkkgtMAhxVbpegTmg VtwZFxdYXxuZ924OPIncOldCe SwIBw1W7OmPtm0NHAbeJjrNC9 n kKYfOJegFc8xxMlffTxyQK3lW HDztncwe083LrEmz5zaGZCllT LcGAaxBZX0J12dt7L1XSPgLEP w RWU0qDE2rB6ogAcclsxmkMVtm GiierErmMwhOGdpCZpiK191BA GviWzvIiJlxAd3M4YiPdq9NUJ z cNdvAV7kqKIsQNiwYh8ptDutf QooPU6iDLLbnwzyt168VtAbr0 ssJLKnvNRhCOvcUFP0M29vu5Z 6 CNXgZGVwOTK2pAI2sZ7hbQqod jogbGVmdDsgdmVydGljYWwtYW ioP632DDXcbUqwBdWanWxlehK g GTwhAQc2G0LfTvlhnYT+PC90Y WMrEW35bKDxyRPtf3wfdBi4Uh AkCUGlWGC6jHecNVlda8NnRJQ t F34jfWXhv3T8YVSipGsihUIoX mBwfNP8bG5xZNaumpift9qmts pdNaesw1oyit97mF42M17nBEz p NXWhCVBxXTNbVGFrhXijuh3gn G9wIi8+YBRbeMU5sWC6aR0jKU PwPwI4OTphU067OtWxeTLxXna j t1ueb2qahBq3HoQ9EMFkglKko AtcPFG5w4CpLt52W75kMIakKO LeSFZqTNAcKMVjgWgimr3moM0 w Ii8+JBFfhQZ4kKV7aQ2bJsNgZ hY3LNlsN255KqOxlORrRrmlC7 9oS2DgrKG+MRExLbs7IIUvjLu s RX1fxMFzFFhgYy8wESV2AvUsG vMvJJgkF4NuMEEthanpoxekbK B6GYTgDYGklP02Fe1bzIphQNZ w rPAQbA8lldhfo7hmnpeaBeBlJ FKdOOb7EPi2JCZutBnuIuJcVV I2KhT5SWN0aMSmwO3eyMnqvbz g gT2tI8FuRHJjyeqcBh20rJ7oR pRqVcN8EQxnFwh+VC8EESUIXN MTQRMJLVTMIHCKWW7PMI90D3Q k Vhq9ZXCukLgoDH6rnEFkYFhsZ j7pfIhudCloFF7sFXYmgblyPL KnoO2cEAGizAHxgElbAK7iELA p rkshj466YkSzHGL3DMPbrKLbK 6XpcN8uGlGqPDXwQXFyM9TpkG OmJXvmU532HMuzUjL9UTAnniH p S0UtVMSrkRcrLwH1k4L2Di9jO F2zGX6jWRTnPC09HR58nNJcw1 K2eSH1V6QsEWFuiftfsqssbPD 6 OOOwBDTjxM35wBSbBCdrEc8jd 0J8y262JNNqULIcvV33Lw9esE wiOGIaoFHPcT5konall7odufy g VaRzZUFtMCq5SVi4EWRoxVrcJ eQzFIF8XqS3WLQ9xROvgU6ibW gjcnoboE6kMlw+NjQgWWVhcnM 8 Q7VkCzz5LUXkqCjmMS3lfUZxG RaiPb4zwKxnzGxtCJ0pKISwxt nnMJMbhH4uHACjvVDqoVlfFC4 w YADsbcaaz001SlRqYYQ7YCYsy KXsF0AjbB3sCxQxXGGhYRNcD0 WaoFTeZHuzA036RUpgVhE5KHT l fcSfV5GgKBJezMonKqV1a8E5F d5TPD4ARBZ4N0UyKwr0FMCdjO yqJB1bsHYwDIolHe0rkJmruEe g KJ6gWODrsuzkSKCxbV3rZJFth XQeuJfaCX1oLQNhvrhjt027Gz VyZXA6NWEfvQOcG6XvsW6lBwX j JEFdBZUcU8KzaTRiUNtfU109X JmmVmT8TEQgnpQkR6WhVWYnqO riHbA5k0O1Gs5CYUbeI6FoA6B y eTwvdGQ+YY93ad15O8FmTdeqC cd8XGGmGKH6iGZ4uN5rFKRrSX nqq4V7jLJ5H5JetrWuri2ur3m s KWMrJMoqD61aiBXza0Y7LXVjn NX1SNGfnApvWnQphX25Umf+PG UeePkii8ZcAbpju9tqj4wkdFz 9 WaAaVTXmtzOdaOcrTVU9j6YbB n55S95mMHgsDMRuNBQoNDMvGF YqtJoyxx3azR1gDt8+PGNvbCB 3 lXO1bR1gRsAsIsR7TXpzN661A hIrpBNiIxqar9ftg7cetCb5Wb VjIUWndmEmwFxvJPJ5b7PkYq2 8 H0FenNktm4MbJbh2gz80cBHur 9Z7gYC2S0VaGZZapeofdYKsxQ ugZJ0fFYAzauzwNLHtaU3rGPS p P5o6DnLkJeB0EJufO1XwukM1B FNrgIJtXGVujRJTvJ9ejdzjx7 cdqodiOfCdLQMcMAz1VUd8TJI s pGddLaJzFAX5WiA2STR7lMVbr Q3seGppzeqgzL3gRxa+UGh5c2 lkqNIpYZ3hpBM3SJ73OH90bKP g x9S8gKA9Z9BdFGSiymnrmwtcm JI7DORlRMCgtR32Qe1yrAeyXy 9yJWJcWNQ1GFUxvCLmZ3DvbZ8 y GwRkIQIgJKMmQ4ZgsWNtJJryS 803EGdoTbR3LTNwqlHvX9AsYK RlaOgkFrO2w8Q6Rh0GFR53CH1 0 IP37cZEnv2B7oGP0N7ScORSiv hrebohwvZO0MEQyOROiiQ04Ye 3zyBatQd6aSMKvQSE8MRRdcVQ z C2VwwY4zGlKePVWfVJTjO0Uld WOmTKznL439TUcdFgT9FDEcrn DiD9SjLYHnoGuhWxX8i1G8Zu6 N Ea58UN41KO71rUTtr7R4lDP5H 6SxEMBrpaiifphkqDY9HKAzDH VhpF78Zi9haOysCx6tHNIpJUT 0 TBXwsJVwU2VhmM9fMfZlNXZvQ WMpG3JbeWOiIIuoC163SZvnWi V2VMIwbxEjL5MqVMCtuSabUaL 0 p7V1Iz1THOrnyoj4X1NzIihrg HI+WX63YQNzNW75mLAnrUYdc3 mynYa6AtIoKCZtWRR4oGkdGSm i b3J (more content not included)... [facility] Consent Formson 06-20-2024 Consent Forms [id number][facility]ation[facility]Specialist Note on 06-20-2024 Consultation/Specia list Note [id number][facility] 06-20-2024 Outside Records [id number]#[facility] Tele[facility] Stripson Telemetry Strips [id number]#1.00OTGTIF F [facility] Anesthesia Noteon 06-17-2024 Anesthesia Note Patient: LESLI CLAY Age: 64 years Sex: FEMALE : 1960 Associated Diagnoses: None Author: Farooq Boggs MD Postoperative Information Post Operative Note: Operative Day. Anesthetic utilized: General. Health Status Allergies: Allergic Reactions (All) No known allergies Problem list: All Problems Hypertension / SNOMED CT 2269593841 / Confirmed Occasional tremors / SNOMED CT 98646883 / Confirmed Type 2 diabetes mellitus / SNOMED CT 855135720 / Confirmed Physical Examination Vital Signs (last [...] on: 06/17/2024 14:58 EDT] Farooq Boggs MD [facility] Anesthesia Note Patient: LESLI CLAY Age: 64 years Sex: FEMALE : 1960 Associated Diagnoses: None Author: Farooq Boggs MD Preoperative Information Anesthesia history: Patient history: pt had breathing issues post op after back surgery in [place]. Family was unaware for several hours, but [...] list: All Problems Hypertension / SNOMED CT 7320502560 / Confirmed Occasional tremors / SNOMED CT 25681629 / Confirmed Type 2 diabetes mellitus / SNOMED CT 209164433 / Confirmed Histories Family History: No family history items have been selected or recorded. Procedure history: Arthroscopy of shoulder ([id number]) on 06/17/2024 at 64 Years. Comments: 06/17/2024 13:21 EDT - Marylin Heredia RN Right Neck ([id number]). Comments: 06/01/2024 12:04 Diane Mcgowan RN neck surgery Complete repair of rotator cuff ([id number]). Comments: 06/01/2024 12:04 Diane Mcgowan RN bilateral shoulders Triggering of finger ([id number]). Comments: 06/01/2024 12:05 Diane Mcgowan RN bilateral hands Back ([id number]). Comments: 06/01/2024 12:03 Diane Mcgowan RN back surgery Arthroplasty of knee ([id number]). Comments: 06/01/2024 12:05 Diane Mcgowan RN bilateral knees section ([id number]). Cardiac catheterization ([id number]). H/O: hysterectomy ([id number]). Social History Electronic Cigarette/Vaping Assessment Electronic Cigarette [...] Oriented. Review / Management Laboratory Results Plan [employer] (ASA) physical status classification: [...] on: 06/17/2024 13:40 EDT] Farooq Boggs MD [facility] Inpatient Patient Summaryon 06-17-2024 Inpatient [place] [address] Patient Discharge Instructions Name: LESLI CLAY : 1960 Patient Address: [address] [place] [address] Primary Care Provider: Name: JENNIFER CABRERA After you are discharged if you find you have any questions, please, call [phone] ext [phone] to speak to a nurse. Discharge Diagnosis: [...] alcohol and/or drug addiction problems; contact the [facility] 08/09 Crisis Hotline -Text 4HCCY to 223754. If you received any narcotics, sedation, or [...] business decisions or sign any legal documents [facility] would like to thank you for allowing us to assist you with your healthcare needs. The following includes patient education materials and information regarding your injury/illness. LESLI CLAY has been given the following list of follow-up instructions, prescriptions, and patient education materials: Follow-up Instructions With: Address: When: Lauren Torres [address] [place] [address] Business (1) 07/01/2024 10:00 AM Medications During [...] 1 c (more content not included)... [facility] Intraoperative Record [facility] Intra-Op Record Summary Primary Physician: RICA RODRIGUEZ DO Finalized Date/Time: 06/17/24 14:39:23 Pt. Name: LESLI CLAY Gifty MulliganB./Sex: 1960 FEMALE Med Rec #: [id number] Physician: RICA RODRIGUEZ DO Financial #: [id number] Pt. Type: D Room/Bed: / Admit/Disch: 06/17/24 [...] Role Performed Surgeon - Primary Anesthesiologist of Doubler Operator Record Time In 06/17/24 13:02:00 06/17/24 13:02:00 [...] CSFA CST CST Role Performed Scrub Personnel Commercial Floor Covering Installer Scrub Personnel Time In 06/17/24 13:02:00 06/17/24 [...] Concerns n/a Addressed Time Out Yamilet Rodriguez ARGON TESTER, Time Out Time 06/17/24 13:37:00 Participants Mary Alice Botello RN, Farooq Boggs MD, Kaya Ty ARGON TESTER, RICA RODRIGUEZ DO, Tuyet Carrasquillo ARGON TESTER Last Modified By: Mary Alice Botello RN [...] Yes Positioning De (more content not included)... [facility] MAGR Intraoperative Record MAGR Intra-Op Record Summary Primary Physician: Finalized Date/Time: 06/17/24 13:02:44 Pt. Name: CIELODUSTYJIANAlliLESLI D.O.B./Sex: 1960 FEMALE Med Rec #: [id number] Physician: RICA RODRIGUEZ DO Financial #: [id number] Pt. Type: D Room/Bed: / Admit/Disch: 06/17/24 [...] Draper, Lora RN Role Performed Anesthesiologist of Doubler Operator Doubler Operator Record Time In 06/17/24 12:35:00 06/17/24 12:34:00 [...] removal performed (more content not included)... [facility] Primary Physician: RICA RODRIGUEZ DO Finalized Date/Time: 06/17/24 15:24:17 Pt. Name: LESLI CLAY D.O.B./Sex: 1960 FEMALE Med Rec #: [id number] Physician: RICA RODRIGUEZ DO Financial #: [id number] Pt. Type: D Room/Bed: / Admit/Disch: 06/17/24 10:32:36 - Institution: PACU Case Times MAGR Entry 1 In PACU I 06/17/24 14:35:00 Discharge from PACU 06/17/24 15:24:00 I Last Modified By: Marylin Heredia RN 06/17/24 15:24:03 Finalized By: Marylin Heredia RN Document Signatures Signed By: Marylin Heredia RN 06/17/24 15:24 [facility] MAGR Postoperative Recordon 06-17-2024 MAGR Postoperative Record MAGR Phase II Record Summary Primary Physician: RICA RODRIGUEZ DO Finalized Date/Time: 06/17/24 16:57:02 Pt. Name: LESLI CLAY/Sex: 1960 FEMALE Med Rec #: [id number] Physician: RICA RODRIGUEZ DO Financial #: [id number] Pt. Type: D Room/Bed: / Admit/Disch: 06/17/24 [...] Signed By: Marylin Heredia RN 06/17/24 16:57 [facility] MAGR Preoperative Recordon 0 06-17-2024 MAGR Preoperative Record MAGR Pre-Op Record Summary Primary Physician: RICA RODRIGUEZ DO Finalized Date/Time: 06/17/24 13:03:22 Pt. Name: LESLI CLAY/Sex: 1960 FEMALE Med Rec #: [id number] Physician: RICA RODRIGUEZ DO Financial #: [id number] Pt. Type: D Room/Bed: / Admit/Disch: 06/17/24 [...] Signed By: Marylin Heredia RN 06/17/24 13:03 [facility] POCT Glucose Levelon 025 Glucose [Mass/Vol] 156 mg/dL High 74-118 [facility] Comment on above: Result Comment: OPR_ ID=IN_LIST,TGC FLAG = False,Meter:[id number] Emergency Communications Operator:2004 Dianne Houser Performed By: #### 4 [id number] ####[facility] (DEFAULT)[address] [place] [address] 05148 Glucose [Mass/Vol] 170 mg/dL High 74-118 [facility] Comment on above: Result Comment: OPR_ ID=IN_LIST,TGC FLAG = False,Meter:[id number] Emergency Communications Operator:2004 Dianne Houser Performed By: #### 4 [id number] ####[facility] (DEFAULT)[address] [place] [address] 86359 Patient Handouton 06-17-2024 Patient Handout Outpatient Shoulder [...] or fever, please call Dr. Rodriguez at [phone]. [phone].) Keep dressings in place, clean and [...] or concerns, please call the office at [phone] or [phone] [facility] Progress Note - Nurseon 05-0 Progress Note - Nurse pre-op call made to pt. pt states understanding of arrival time of 1030 on 06/17/24 and NPO after MN. [Electronically Signed on: 06/16/2024 09:12 EDT] Rowena Uribe RN [Verified on: 06/16/2024 09:12 EDT] Rowena Uribe RN [facility] Progress Note - Nurseon 05-19 Progress Note - Nurse Dr Wren reviews pt chart and clearance from PCP. Dr Wren states that pt will have to have acceptable BP DOS to proceed with surgery. [Electronically Signed on: 06/15/2024 12:46 EDT] Diane Smith RN [Verified on: 06/15/2024 12:46 EDT] Diane Smith RN [facility] Coding Summaryon 06-07-2024 Coding Summary HTMLBase 64 ZkcsssxjSUc9eRm+PGhlYWQ+P V9JEYXpO88dsAQovS6vL4KPFL lOSywgQVBQTElOSyIgbmFtZT1 kaXNjZXJu IC8+CA4cTJFkRhgcjYXbf7L7k JS5Z78umt2rZTmckYD9UOAiSj Bxmxrgw2czeAk2WTvzPztpFtA t UHLmyR93VHI7iE66Cc72wIXdu SUim7oxjFc2TuZnOOEmYTW1kR gqNWmzz2NsGLNsQ73nqQVye2Q 6 KZDliIrtjVCcXpBaaFF8oP8fV Hyjuxmea2gkjjhdCwb3yo56nV Wtr7H6iSR8I0QmffQ9RHPanUI g EirfsTERxL1pugfuq5nnblfqY zYkEZYpBYv6DOr9JXGafSpvAz OgKA89GHO9MPXvhkQsV5DkORV s yUalPpK8h7Y4Xp5XZ9HCEklrL 1VNTUFSWTwvdGQ+YB55qo99B6 WlGdgxZwy0AAZtLYW0xVG9kM7 n DBIjQRulf8F4lBG2I8OqdoIdb h9yt5xySGNjFAsrP41zkVVjc4 P4HQAgxYT9ZQNsmSjmGzRjyO2 3 Oyc+VXDaaJdjt5EdRykxv3dyx 7yjoFd7JicdGKWyntGjeGazEV P6y3CrIj6oULLvfFT9aDT1gS9 i IsVlUbG4XTzxT401EwAqoYLwK qguF65qI7McqGV+NGVyGoe9IP TfnUioRH4aO2CkDNRfsihpuDO m iZxnFS3aBOPkjnicVYQmhN4xN MFkA3n3VxIyTmI2IEyuC8XpJH VtezjdRt00cT9nXlYeLqW3DNr u B1GmgpC5AKVspABsUWqzMGQ2Y 56nh0R6XPPiASYlNMD9wZE3hW 1hbGlnbjogbGVmdDsgdmVydGl j GIjvGRmrV359SURcxYmvPxIiH GluZyBEYXRlOiAgMDQvMjIvMj AyNTwvdGQ+JVEaCYP3kUclCHL n fAPlVVnsKb4imVnsaDnbYR9yL JDpswckGTDmcP9aLWFdiCZuhB uzCH1jALSeotswd127NxRhKSM 0 MFHrtHCnM5EwyM5gKpLmSYNnC NXvZ5QrfETzBHssB544RWhcOy F6ATZsimUdL9IfXJWdcOqwNpW 0 i0T7Vg5Ia0PrdehtQ8BwzQDxO pHeBundAPp3W2WfNipyjAQ+PC 33BSSaNO97IKc3AEB1zPxsPLv i UBGiW0XocU2mMqPdSPLqWDNhG yc+PHRhYmxlIHdpZHRoPScxMD JsIjNfbCzbCE7uGf1hXOWiADY v hYiihVJlWmXof2hvWGFwLMkyW C6xeMyhL1WxdFE3CDJeg7y0Ex 89J40jS2TifKD+GVGmqFZ3gGF 0 xB4eUbWpQoN7NAgkC130WaOtd DTbDloih8gsw7ojnTr9UhU5LN IrivVuzJtlWZY0l8PyWl22E26 s IHdpZHRoPSIxNSUiIHZhbGlnb h9teS6fZi0+PAGjuML4dNG0vW 7xNxAdGaK3AIqfQ856QgXzpPV v Gvmoh4rvu2ihsRn8KlKuMTSlf iSvtTgaKHN2p2PcLh16M8PuqN xus1MlCbp4vt21cTLyq0C4jII 9 S4DtDDOuptltgHLtzOhsMJ6fK ALonkftNOPhwJ5rNAWkL5y4Eu YnNtJ5DXujA2KajoH8JZUnfLF g LQBxgIHUeE1dsnqmh6chafkzQ zSiNUIoJUu9LUs4XYSvaXkxUw DxJPM0HdM9BZE8rFCwkU8shJi n aeyrwA2wHem+EID4uSVgzURSE K1jFrhxdKZ+GAQwNZZ4pUepLV pfJKCkcP4fMNWnO2m7KsJtYzM 1 NAprU6IxftQ2KVZxmZBuLRLnv MPKhO2aohyuf1xcdkvsWcCvUG EhIPw6RGz3MDIjfPqhXzBcQBT 0 BwB4QYT4fJGsnM4crPtagvjsi G9wOyc+CkkbpYlhGUQ9GBf0P0 HjLbg8TGOkoVxlXV3eyAWqTQn u Zk9qgBjihAhlDF1fUYQajmnjf 085XpXko4dvIUHpwVYrUKbxMQ F3Y29ir6R5GTVfIRVfPPW1uHF 4 mR2rvXcofbkkyIConPsbwbHhs RvuTLsaMSbcU286EEYohRavLb GyYFo5W3TdYpo8JKGhxNhtUE7 n vSKwBRgqTh7ciNbmeOomYC6qB ILggtslk603MuCpy2bjQUNhrC CpWVjuTHE9C17ac8A9ZTRlKQG w MMO2uYT4mX1mqOqjrknrpPIqh MkekcPmqIawZFodMRuqW176PJ WcyXtwMmYosOm0J1PlSlw9WGC z pXlgDJ2kuDCtJStnAw7gkRiup HvoGN4qVBJolrdso550VdNme5 qgAQWaqSQmEYyfZBN7I88ha0B 6 JMWdINSvLMV2mBC3xK3vnQjij jogbGVmdDsgdmVydGljYWwtYW uaJ964NMRtiQpfNgQkcKavnhG g QIfuPQq8L1TiXekybGQ+PC90Y EPhXH58jFKvnWMcv6iwuHn5Ra YnLTYnDVP2oZinRUoxj6IdMIS t B14prJMiy9I0BQRruCeykSPlG pKajHP8uL2sYGkaaogpv1xnyz qcNhssj0hbaz40aS60O84zNMu p WVBbEHFtDLPbMNImkBhdml6uq G9wIi8+MAHvpKR3sGQ1dA5uRX LbVyO9ICqkC957JuSiuMUwYrq j a3ivz3ciiNj9ReW5CTRcxeBxu KmtTZE2i5XiGl37V67tRKnyOH WaQETuXCDaKSCxpSrpom8bmH1 w Ii8+ZNYliDK2xEZ6wM2jIvWtQ vS8BCibF701ZfQvyFOoNhhfK8 6cA3TklIP+WHZdFvr2FXTioEf s YY6ojVHkBZkmXg0lPEM1LuSmX vIwCLxyG5GkGJAfojifgdvckK J7FDChOUYogY22Ut0swWfjMGS w zLMYzX0ufkjxx7dqggfyBxYuP XHkCXc1YCn3ZKXesMpsOyHxTI C6IuP5JRP5wYEjgC8llYnavzc g uQ4eN0UfEBIaqmlrWr31oI9rU rVtLxI0XJmoKqq+IG7NGNOXFZ ORCFLENKZEHQFCKH7OJJ17L3T k Rsm5ZZManVyqUZ1vjCEkANuzS a6ghBznbGyqHP5hAYKewtvlYN PzbV1gXUOslJNluGxkPZ2wFCA p tkudq090JqFfYGD4OJIjqWGjA 0WryO6gXdRgSLGpQKJmQ2OrnK RmIVqkY362OIkuPbL4BBJifoM p N7LdBORqkQeoYmW1q6L4Ts0cK F5fFF1lCAZiZK09VD57bHVup1 O2gVV4J1IvXRLlkppptwzbbWJ 6 HAIlLYQqcM53zIOqJMccEa5hl 3F8o029WZImWQGwvZ21Uy2skG shBNRrnTNKhF8rsiawr2vbowg g GbSzEIGyYSi0FXp5FEBdaHyzV iKlCLB4BgV9CLI4tEBjtU3fsH oecxsyiE8oMnf+NjQgWWVhcnM 8 S7MeNmi0ACJqeRthYS6xdRYgR CmsOm9npHrvwZvlJB2oYCXgyz ujIPJzfP5fGPHuzLMfaPlvDS8 w ZEQxsmbin417TaPtYDO2TVLae JTjO1BgpG8rNyIqHTQhWLNrC2 BxmSXyWUxiW330HDdrOlH3ISZ l rnBgY3IoFBZpdAmhPhR3c9I1K q7MOG4SDOA4P4XgWoh1JIBavG nwMP9tcSHbDIcsBr6ixPaflGo g SO8uFIImburvCCGocX2rTOXcc YMzvCrlXM4jRJNlfxgsp845Mv JzRYN4RKLphWTaU4GruU7cRpW j ZBQqHEBaV4VudTVdVEtjU783T LieEtD5OWAqvkUyX4MgTBNplH ptTqD5t1O7Na4OCUlknVZ+PC9 0 ci20E9NvQrjlHez4OQVqVQX7j GD4mO8pWLQwRNskc9R4yFU7Y9 NbvyTgex1up6ylOWBeYMxsJ71 s qCDuk9I9XXEbeUZ5LUThlSxlL uKzbS41Pyv+OYUblVsbe7TvNn xlz3ugm6qeuVo2OdPvHWTsofC s cHbuWON7h9BhKw31W07kYBrtB KOwJQOeQBZoTUTduMbyqb8yuG 9wIi8+OANayTF0lRJ2eY4aPvT l KhN2IQdgV009NoNrcQSzSoani 7zqd9yeyPe7JdXlIMDmuyOwhU gkXLX3y3EvIa78B9YrxMfeo6Z w Lrk5pz04qTHxg1R8rAU7M9ZmM SAwpadbnPEtdClfAW1lPPGiha xlEOVozP0nUBYsQ6k9PjHyCzJ 1 LXeaO4DpjxZ9QVJmrXEyACZfo HIVoM2igcuxv4dutwckUsClOS IhTCx0AHy6IKAdvNbkEhKbJVI 0 UoB8TQN4oKQvkL8llVlpckowg G9wOyc+CCm8s6ohmWYkFR4rbH P3PW83TB87gRJnl3W1dGI1H5T h AVEvrvojalljpUY8VFIkYLZrt S79Gd4sbWxaFa8sHHWdBSL0YF XfgKEkM0JldU2tWyHzGPDzRKI w F0PgcELzVSrvK861IRjtNjH8H XUhqaBgS0GqSLFxfZagYmZ7z0 I4Ja3TZY55EN34NT80wJEwg1H 5 vRM3L4SfFPAzadclrojbySB9O EFmVAJlcL24Qv3wfLfwZg5sHV XpWZQ6ANNccXPeK4PjxV6tPhZ j VWNsXKPkC1LgeCQbQObkT152I YufXhG7RWVjyyQtM8OxLNMwwP lhJxK7w2H6Yh8RRz32NK79FX7 8 gCAvz7C8vIV2G4EtQFJstrlpa kkbtUD3WICyGFLfwL90Re8ueM spZb9rEIHnMKZ7GWQlxGEeD0F v nW7hJbTiJSGxOJPjB1NmeHHdX UdfL242JUkuTaC8GDWlkvYjK1 WzACAdlZttUnE4b3C4Nu1ACVy l sor5H9LmTetxvNY+QH44FMYiQ F84pHBxfOLfj7bmtKz7VgYjNX BpROY0oRbqTBvlr8JrLDGpX47 s bGF (more content not included)... [facility] Progress Note - Nurseon 05-17 Progress Note - Nurse Dr Galo reviews pt chart and wants medical clearamce d/t elevated BP on PAT visit. [Electronically Signed on: 06/02/2024 13:58 EDT] Diane Smith RN [Verified on: 06/02/2024 13:58 EDT] Diane Smith RN Spoke with Nicole at Dr Contreras office and informed her of the need for medical clearance. [Electronically Signed on: 06/02/2024 13:59 EDT] Diane Smith RN Normal [facility] .Auto Diff 1on 06-01-2024 Auto Divide % 8 % Normal 1-12 [facility] Comment on above: Performed By: #### 7 [id number], [id number], [id number] ####[facility] (DEFAULT)[address] [place] [address] 90969 Baso Abs# 0.1 x10 Normal 0.0-0.2 [facility] Comment on above: Performed By: #### 7 [id number], [id number], [id number] ####[facility] (DEFAULT)[address] [place] [address] 55802 Basophils/100 WBC (Bld) 0.9 % Normal 0.2-2.0 [facility] Comment on above: Performed By: #### 7 [id number], [id number], [id number] ####[facility] (DEFAULT)[address] [place] [address] 22913 Eos Abs# 0.2 x10 Normal 0.0-0.4 [facility] Comment on above: Performed By: #### 7 [id number], [id number], [id number] ####[facility] (DEFAULT)[address] [place] [address] 97968 Eosinophils/100 WBC (Bld) 2.2 % Normal 0.9-4.0 [facility] Comment on above: Performed By: #### 7 [id number], [id number], [id number] ####[facility] (DEFAULT)[address] [place] [address] 08034 Lymph Abs# 1.9 x10 Normal 1.3-2.9 [facility] Comment on above: Performed By: #### 7 939201, [id number], [id number] ####[facility] (DEFAULT)[address] [place] [address] 37152 Lymphocytes/100 WBC (Bld) 19 % Normal 14-48 [facility] Comment on above: Performed By: #### 7 756872, [id number], [id number] ####[facility] (DEFAULT)[address] [place] [address] 82140 Divide Abs# 0.8 x10 Normal 0.0-0.8 [facility] Comment on above: Performed By: #### 7 998365, [id number], [id number] ####[facility] (DEFAULT)[address] [place] [address] Neut Abs# 7.4 x10 Normal 1.5-9.2 [facility] Comment on above: Performed By: #### 7 985549, [id number], [id number] ####[facility] (DEFAULT)[address] [place] [address] Neutrophils/100 WBC (Bld) 71 % Normal 44-88 [facility] Comment on above: Performed By: #### 7 758973, [id number], [id number] ####[facility] (DEFAULT)[address] [place] [address] BMP Standardon 06-01-2024 eGFR Non AA >60 Invalid Interpretation Code [facility] Comment on above: Performed By: #### 7 [id number], [id number], [id number] ####[facility] (DEFAULT)[address] [place] [address] eGFR AA >60 Invalid Interpretation Code [facility] Comment on above: Performed By: #### 7 787536, [id number], [id number] ####[facility] (DEFAULT)[address] [place] [address] Calcium [Mass/Vol] 9.3 mg/dL Normal 8.9-10.3 [facility] Comment on above: Performed By: #### 7 821984, [id number], [id number] ####[facility] (DEFAULT)[address] [place] [address] Chloride [Moles/Vol] 99 mmol/L Low 101-111 [facility] Comment on above: Performed By: #### 7 608989, [id number], [id number] ####[facility] (DEFAULT)[address] [place] [address] CO2 [Moles/Vol] 28 mmol/L Normal 21-32 [facility] Comment on above: Performed By: #### 7 837886, [id number], [id number] ####[facility] (DEFAULT)[address] [place] [address] 50763 Creatinine [Mass/Vol] 0.72 mg/dL Normal 0.60-1.30 [facility] Comment on above: Performed By: #### 7 126851, [id number], [id number] ####[facility] (DEFAULT)[address] [place] [address] 11339 Glucose [Mass/Vol] 89.0 mg/dL Normal 74.0-118.0 [facility] Comment on above: Performed By: #### 7 164621, [id number], [id number] ####[facility] (DEFAULT)[address] [place] [address] 03364 Potassium [Moles/Vol] 4.6 mmol/L Normal 3.6-5.1 [facility] Comment on above: Performed By: #### 7 138430, [id number], [id number] ####[facility] (DEFAULT)[address] [place] [address] 55785 Sodium [Moles/Vol] 135.0 mmol/L Low 136.0-144.0 [facility] Comment on above: Performed By: #### 7 128537, [id number], [id number] ####[facility] (DEFAULT)[address] [place] [address] 95667 Urea nitrogen [Mass/Vol] 17 mg/dL Normal 8-26 [facility] Comment on above: Performed By: #### 7 117678, 10332703, [id number] ####[facility] (DEFAULT)[address] [place] [address] 94493 Anion gap [Moles/Vol] 12.6 mmol/L Normal 5.0-19.0 [facility] Comment on above: Performed By: #### 7 614074, 53679100, [id number] ####[facility] (DEFAULT)[address] [place] [address] 52300 Osmolality 271 mOsm/L Invalid Interpretation Code [facility] Comment on above: Performed By: #### 7 418398, [id number], [id number] ####[facility] (DEFAULT)[address] [place] [address] Urea nitrogen/Creatinine [Mass ratio] 23.6 mg/mg High 4.6-16.2 [facility] Comment on above: Performed By: #### 7 269650, [id number], [id number] ####[facility] (DEFAULT)[address] [place] [address] CBC w/ Auto Diffon 5 Erythrocyte distribution width (RBC) [Ratio] 17.2 % High 11.5-15.0 [facility] Comment on above: Performed By: #### 7 638843, [id number], [id number] ####[facility] (DEFAULT)[address] [place] [address] Hematocrit (Bld) [Volume fraction] 36.4 % Normal 33.7-40.4 [facility] Comment on above: Performed By: #### 7 113385, 17874367, [id number] ####[facility] (DEFAULT)[address] [place] [address] Hemoglobin (Bld) [Mass/Vol] 11.9 g/dL Normal 11.3-15.9 [facility] Comment on above: Performed By: #### 7 768292, [id number], [id number] ####[facility] (DEFAULT)[address] [place] [address] Man Diff? Auto Invalid Interpretation Code [facility] Comment on above: Performed By: #### 7 069550, [id number], [id number] ####[facility] (DEFAULT)[address] [place] [address] MCH (RBC) [Entitic mass] 28 pg Normal 24-34 [facility] Comment on above: Performed By: #### 7 822627, 38343383, [id number] ####[facility] (DEFAULT)[address] [place] [address] MCHC (RBC) [Mass/Vol] 33 g/dL Normal 26-37 [facility] Comment on above: Performed By: #### 7 342435, [id number], [id number] ####[facility] (DEFAULT)[address] [place] [address] 61798 MCV (RBC) [Entitic vol] 84 fL Normal 81-100 [facility] Comment on above: Performed By: #### 7 453114, [id number], [id number] ####[facility] (DEFAULT)[address] [place] [address] 12945 Platelet 298 x10 Normal 138-427 [facility] Comment on above: Performed By: #### 7 525326, [id number], [id number] ####[facility] (DEFAULT)[address] [place] [address] 02466 Platelet mean volume (Bld) [Entitic vol] 7.9 fL Normal 6.3-10.2 [facility] Comment on above: Performed By: #### 7 184077, [id number], [id number] ####[facility] (DEFAULT)[address] [place] [address] 96422 RBC 4.31 x10 Normal 3.70-5.30 [facility] Comment on above: Performed By: #### 7 138989, 30136504, [id number] ####[facility] (DEFAULT)[address] [place] [address] 77950 WBC 10.5 x10 Normal 3.5-10.5 [facility] Comment on above: Result Comment: Slid e Reviewed Performed By: #### 7 413499, [id number], [id number] ####[facility] (DEFAULT)[address] [place] [address] 99093 Creatinine [Mass/volume] in UrineOrdered By: Lili Burgos on 05-25-2024 Creatinine (U) [Mass/Vol] Creatinine [Mass/volume] in Urine [facility] Comment on above: No reference range e stablished MicroAlb Creat Ratio,Uon Albumin DL <= 20 mg/L (U) [Mass/Vol] 10.5 mg/dL High 0.0-1.8 [facility] Comment on above: Performed By: #### U RMACRERAT #### [facility] [address] Creatinine, Urine (Random) 102.00 mg/dL Normal [facility] Comment on above: Result Comment: No r eference range established Performed By: #### U RMACRERAT #### [facility] [address] Microalbumin/Creati nine Ratio 102.9 mg/g High 0.0-30.0 [facility] Comment on above: Result Comment: 30-3 00 mg/g indicates an increased risk for diabetic nephropathy. Greater than 300 mg/g is consistent with clinical nephropathy. (Am. J. Kidney Disease 1995, 25:107) PERFORMED BY: [place] [address] PATHOLOGIST [employer] DOBBY LOOM CHRISTIANO TORREZ M.D. Performed By: #### U RMACRERAT #### [address] Microalbumin [Mass/volume] i n UrineOrdered By: Lili Burgos on 05-25-2024 Albumin DL <= 20 mg/L (U) [Mass/Vol] Microalbumin [Mass/volume] in Urine High 0.0-1.8 [facility] Urine microalbumin/creatinin e mass ratioOrdered By: Lili Burgos on 05-25-2024 Albumin/Creatinine DL <= 20 mg/L (U) [Mass ratio] Urine microalbumin/creatinine mass ratio High 0.0-30.0 [facility] Comment on above: 30-300 mg/g indicate s an increased risk for diabetic nephropathy. Greater than 300 mg/g is consistent with clinical nephropathy. (Am. J. Kidney Disease 1995, 25:107) XR CHEST 2 VIEWSon 5 XR [...] Carlos Manuel Armando on 03-10-2024 Study report [facility] [place] [address] [place] [address] MRI Report Signed Patient: Lesli Clay#: [id number] : 1960 Acct:[id number] Age/Sex: 63 / F ADM Date: 5 Loc: MR Room: Type: [facility] Attending Dr: Lauren Torres PA-C Copies to: Lauren Torres PA-C~ Ordering Provider: Lauren Torres PA-C Date of Service: 03/10/24 MR/MR shoulder RT wo con: M24.811 ([id number]) XR/XR pre/post mri xray: M24.811 MRI right [...] M.D.03/10/2024 10:09 AM Dictation Location: [place] [address] Transcribed By: [facility] 03/10/24 1009 Dictated By: Carlos Manuel Armando DO 03/10/24 0959 Signed By: 03/10/24 [facility] XR pre/post mri xrayon 03-10 XR pre/post mri xray [facility] [place] [address] [place] [address] MRI Report Signed Patient: Lesli Clay MR#: [id number] : 1960 Acct:[id number] Age/Sex: 63 / F ADM Date: 03/10/24 Loc: Room: Type: [facility] Attending Dr: Lauren Torres PA-C Copies to: Lauren Torres PA-C Ordering Provider: Lauren Torres PA-C Date of Service: 03/10/24 MR/MR shoulder RT wo con: M24.811 ([id number]) XR/XR pre/post mri xray: M24.811 MRI right [...] M.D.03/10/2024 10:09 AM Dictation Location: [place] [address] Transcribed By: [facility] 03/10/24 1009 Dictated By: Carlos Manuel Armando DO 03/10/24 0959 Signed By: 03/10/24 1009 Normal [facility] Laboratory - Chemistry and C hemistry - challengeon 03-01-2024 Creatinine (U) [Mass/Vol] 74 mg/dL [facility] No Panel Informationon 03-01 Urine Microalbumin mg/dl 9.3 [facility] Urine Microalbumin/Creati nine Ratio 126 [facility] No Panel Informationon 12-29 Bedside Glucose 171 [facility] No Panel Informationon 12-28 SERGIO Iglesias [...] and draped in the usual sterile fashion. [facility] XR Shoulder - right 2 Viewso n 12-29-2023 Imaging Result: AP and Scap Y right shoulder: No acute fracture, no dislocation Moderate AC joint arthrititis, with bone on bone formation and post surgical changes to articular surface Possible calcific tendinitis vs surgical changes Glenohumeral joint preserved with visualized lung manuel clear Impression: No acute bony process right shoulder with ac joint arthritis [facility] Radiology Study observation (narrative) [facility] Laboratory - Chemistry and C hemistry - challengeon 12-24-2023 Cobalamin (Vitamin B12) [Mass/Vol] 225 pg/mL [facility] Albumin [Mass/Vol] 3.9 g/dL [facility] ALP [Catalytic activity/Vol] 91 U/L [facility] ALT [Catalytic activity/Vol] 23 U/L [facility] AST [Catalytic activity/Vol] 16 U/L [facility] Bilirubin [Mass/Vol] 0.3 mg/dL [facility] Calcium [Mass/Vol] 9.4 mg/dL [facility] Chloride [Moles/Vol] 98 mmol/L [facility] CO2 [Moles/Vol] 32 mmol/L [facility] Creatinine [Mass/Vol] 0.82 mg/dL [facility] Glucose [Mass/Vol] 166 mg/dL [facility] Potassium [Moles/Vol] 5.0 mmol/L [facility] Protein [Mass/Vol] 6.9 g/dL [facility] Sodium [Moles/Vol] 137 mmol/L [facility] Urea nitrogen [Mass/Vol] 17 mg/dL [facility] Cholesterol [Mass/Vol] 149 mg/dL [facility] Cholesterol in HDL [Mass/Vol] 61 mg/dL [facility] Cholesterol in LDL [Mass/Vol] 69 mg/dL [facility] Cholesterol.total/C holesterol in HDL [Mass ratio] 2.4 {ratio} [facility] Triglyceride [Mass/Vol] 100 mg/dL [facility] Laboratory - Hematology and Cell countson 12-24-2023 HbA1c (Bld) [Mass fraction] 8.1 % [facility] No Panel Informationon 12-23 25-Hydroxy Vitamin D Total 28 ng/mL [facility] Estimated Average Glucose 186 [facility] Estimated GFR (Non- 80 mL/min [facility] Cult,Urineon 08-06-2023 Cult,Urine Specimen Description .CLEAN [...] Tobramycin <=1 SUSCEPTIBLE Trimethoprim/Sulfa <=20 SUSCEPTIBLE Susceptible [facility] Comment on above: Performed By: #### U ####[facility] [address] [place] [address] Lab Director: Hermilo Thapa [address] [address] Lab Director: Jonel Calvert MD Glucose,Whole Bloodon 2023 Glucose [Mass/Vol] 316 mg/dL High 65-105 [facility] Glucose [Mass/Vol] 225 mg/dL High 65-105 [facility] Glucose [Mass/Vol] 245 mg/dL High 65-105 [facility] Calcium, Ionicon 07-28-2023 Calcium [Moles/Vol] 1.26 mmol/L Normal 1.13-1.33 [facility] Comment on above: Performed By: #### N AIRPORT SK[employer]ED MAINTENANCE SUPERVISOR #### [address] [address] Gynecological Assistant: Hermilo Thapa MD Glucose (POC)on 07-28-2023 Glucose [Mass/Vol] 227 mg/dL High 74-100 [facility] Glucose,Whole Bloodon 2023 Glucose [Mass/Vol] 247 mg/dL High 65-105 [facility] Glucose [Mass/Vol] 252 mg/dL High 65-105 [facility] Glucose [Mass/Vol] 280 mg/dL High 65-105 [facility] Glucose [Mass/Vol] 214 mg/dL High 65-105 [facility] Lactic Acidon 07-28-2023 Lactic Acid,Whole Bl 1.5 mmol/L Normal 0.7-2.1 [facility] Comment on above: Performed By: #### N [employer] MAINTENANCE SUPERVISOR #### [address] [address] Gynecological Assistant: Hermilo Thapa MD Non-Specialty Trimmer Cytologyon 4 Case No: [id number] Normal [facility] Comment on above: Performed By: #### N [employer] MAINTENANCE SUPERVISOR #### [address] [address] Gynecological Assistant: Hermilo Thapa MD Specimen Description .PELVIC WASHINGS Normal [facility] Comment on above: Performed By: #### N [employer] MAINTENANCE SUPERVISOR #### [address] [address] Gynecological Assistant: Hermilo Thapa MD Open Heart Panelon 4 Odnald Test INFORMATION NOT PROVIDED [facility] Comment on above: Performed By: #### N [employer]PORT SK[employer] MAINTENANCE SUPERVISOR #### [address] [place] [address] Gynecological Assistant: Hermilo Thapa MD Body Temp. 37.0 Normal [facility] Comment on above: Performed By: #### N [employer] SK[employer] MAINTENANCE SUPERVISOR #### [address] [address] Gynecological Assistant: Hermilo Thapa MD Carboxy Hgb 1.8 % Normal 0-5 [facility] Comment on above: Result Comment: Reference Range: Non-Smokers 0-2% Average Smoker 2-4% Heavy Smoker <10% Performed By: #### N [employer] SK[employer] MAINTENANCE SUPERVISOR #### [address] [address] Gynecological Assistant: Hermilo Thapa MD Chloride [Moles/Vol] 108 mmol/L Normal 98-110 [facility] Comment on above: Performed By: #### N [employer] SK[employer] MAINTENANCE SUPERVISOR #### [address] [address] Gynecological Assistant: Hermilo Thapa MD FIO2 40% Normal [facility] Comment on above: Performed By: #### N [employer]PORT SKILLED MAINTENANCE SUPERVISOR #### [address] [address] Gynecological Assistant: Hermilo Thapa MD Glucose [Mass/Vol] 210 mg/dL High 65-105 [facility] Comment on above: Performed By: #### N [employer]PORT SK[employer]ED MAINTENANCE SUPERVISOR #### [address] [address] Gynecological Assistant: Hermilo Thapa MD HCO3 (Bld) [Moles/Vol] 20.2 mmol/L Low 22-27 [facility] Comment on above: Performed By: #### N [employer] SK[employer]ED MAINTENANCE SUPERVISOR #### [address] [address] Gynecological Assistant: Hermilo Thapa MD Hematocrit (Bld) [Volume fraction] 35.7 % Low 36.3-47.1 [facility] Comment on above: Performed By: #### N [employer] SK[employer] MAINTENANCE SUPERVISOR #### [address] [address] Gynecological Assistant: Hermilo Thapa MD Hemoglobin (Bld) [Mass/Vol] 11.6 g/dL Low 11.9-15.1 [facility] Comment on above: Performed By: #### N [employer] SK[employer]ED MAINTENANCE SUPERVISOR #### [address] [address] Gynecological Assistant: Hermilo Thapa MD Negative Base Excess 4.4 mmol/L High 0.0-2.0 [facility] Comment on above: Performed By: #### N [employer] SK[employer]ED MAINTENANCE SUPERVISOR #### [address] [address] Gynecological Assistant: Hermilo Thapa MD Oxygen (Bld) [Partial pressure] 106.0 mm[Hg] High 75-95 [facility] Comment on above: Performed By: #### N [employer] SK[employer]ED MAINTENANCE SUPERVISOR #### [address] [address] Gynecological Assistant: Hermilo Thapa MD Oxygen saturation in Blood 97.1 % Normal 94-100 [facility] Comment on above: Performed By: #### N [employer]PORT SKILLED MAINTENANCE SUPERVISOR #### [address] [address] Gynecological Assistant: Hermilo Thapa MD pCO2 37.7 mmHg Normal 32-45 [facility] Comment on above: Performed By: #### N [employer]PORT SKILLED MAINTENANCE SUPERVISOR #### [address] [address] Gynecological Assistant: Hermilo Thapa MD pH (Bld) 7.348 [pH] Low 7.350-7.450 [facility] Comment on above: Performed By: #### N [employer]PORT SKILLED MAINTENANCE SUPERVISOR #### [address] [address] Gynecological Assistant: Hermilo Thapa MD Potassium [Moles/Vol] 4.5 mmol/L Normal 3.6-5.0 [facility] Comment on above: Performed By: #### N AIRPORT SKILLED MAINTENANCE SUPERVISOR #### [facility] [employer] [address] [place] [address] Gynecological Assistant: Hermilo Thapa MD Sodium [Moles/Vol] 135 mmol/L Low 136-145 [facility] Comment on above: Performed By: #### N [employer]PORT SK[employer]ED MAINTENANCE SUPERVISOR #### [facility] [address] [place], [place] [id number] Gynecological Assistant: Hermilo Thapa MD Potassium (POC)on 07-28-2023 Potassium [Moles/Vol] 4.8 mmol/L High 3.5-4.5 [facility] Surgical Pathology Reporton 07-28-2023 Surgical Pathology Report (NOTE) Path Number: [id number] -- Diagnosis -- A. CERVIX, UTERUS, BILATERAL [...] flat mucosa. Sectioning of the cervix reveals cmwilliams-pink to green-tinged, rubbery cut surfaces. The fallopian tube serosa is pink with few paratubal cysts that range from 0.1 to 0.7 cm. The fallopian tubes demonstrate unremarkable cut surfaces. The ovaries show a mcwilliams, lobulated cortex. Sectioning of the ovaries reveals mcwilliams-white, lobulated cut surfaces with no masses or lesions identified. Sectioning of the adnexal soft tissue reveals mcwilliams-red, spongy and vascularized tissue. Sheet Combining Operator sections are submitted in 18c as follows: 1 anterior cervix 2 posterior cervix 3-4 posterior endomyometrium 5 territory representative anterior endomyometrium with fat attached at serosa 6 territory representative anterior fat attached to serosa 7-8 anterior cervix and lower uterine segment, longitudinal section 9-10 posterior cervix and lower uterine segment, longitudinal section 11-14 territory representative left fallopian tube, ovary and adnexal soft tissue 15-18 territory representative right fallopian tube, ovary and adnexal soft tissue. B. LESLI BUCKEILEENAlli, RIGHT PELVIC LYMPH NODES Received in formalin [...] in 2c (more content not included)... Normal [facility] Surgical Pathology Report (NOTE) Path Number: [id number] INTERPRETATION Pelvic washings: Satisfactory for evaluation. NEGATIVE FOR MALIGNANCY. Hypocellular fluid with few mononuclear inflammatory cells and strips of benign mesothelial cells. Electronically Signed Out John Paul Noble. 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 Gross Description PELVIC WASHING 30 ml. colorless fluid. MICROSCOPIC DESCRIPTION Microscopic examination performed. Non Specialty Trimmer Thin Prep x 1, Cell Block w/ HANH x 1 Processing Lab: [address] [id number] Interpretation performed at [address] [id number] NONGYNECOLOGICAL CYTOPATHOLOGY CONSULTATION Patient Name: PHILLY LESLI Coker [facility] Rec: [id number] [facility] PATHOLOGISTS [facility] ANATOMIC PATHOLOGY [address] [place] [id number] Normal [facility] CBC with Diffon 07-16-2023 Abs. Basophil 0.03 k/uL Normal 0.00-0.20 [facility] Comment on above: Performed By: #### C P, LIPR, MG, CDP, TSH, GLYHGB #### [place] [address] Gynecological Assistant: Hermilo Thapa MD Abs.Imm.Granulocyte 0.03 k/uL Normal 0.00-0.30 [facility] Comment on above: Performed By: #### C P, LIPR, MG, CDP, TSH, GLYHGB #### [address] [address] Gynecological Assistant: Hermilo Thapa MD Abs.Neutrophil (Seg) 6.45 k/uL Normal 1.50-8.10 [facility] Comment on above: Performed By: #### C P, LIPR, MG, CDP, TSH, GLYHGB #### [facility] [employer] [address] [place] [address] Gynecological Assistant: Hermilo Thapa MD Basophils/100 WBC (Bld) 0 % Normal 0-2 [facility] Comment on above: Performed By: #### C P, LIPR, MG, CDP, TSH, GLYHGB #### [facility] [employer] [address] [place] [address] Gynecological Assistant: Hermilo Thapa MD Eosinophils (Bld) [#/Vol] 0.15 10*3/uL Normal 0.00-0.44 [facility] Comment on above: Performed By: #### C P, LIPR, MG, CDP, TSH, GLYHGB #### [facility] [employer] [address] [place] [phone] Gynecological Assistant: Hermilo Thapa MD Eosinophils/100 WBC (Bld) 2 % Normal 1-4 [facility] Comment on above: Performed By: #### C P, LIPR, MG, CDP, TSH, GLYHGB #### [address] [phone] Gynecological Assistant: Hermilo Thapa MD Erythrocyte distribution width (RBC) [Ratio] 14.7 % High 11.8-14.4 [facility] Comment on above: Performed By: #### C P, LIPR, MG, CDP, TSH, GLYHGB #### [place] [address] Gynecological Assistant: Hermilo Thapa MD Hematocrit (Bld) [Volume fraction] 37.3 % Normal 36.3-47.1 [facility] Comment on above: Performed By: #### C P, LIPR, MG, CDP, TSH, GLYHGB #### [facility] [employer] [address] [place] [address] Gynecological Assistant: Hermilo Thapa MD Hemoglobin (Bld) [Mass/Vol] 11.7 g/dL Low 11.9-15.1 [facility] Comment on above: Performed By: #### C P, LIPR, MG, CDP, TSH, GLYHGB #### [place] [address] Gynecological Assistant: Hermilo Thapa MD Immature granulocytes/100 WBC (Bld) 0 % Normal 0 [facility] Comment on above: Performed By: #### C P, LIPR, MG, CDP, TSH, GLYHGB #### [place] [address] Gynecological Assistant: Hermilo Thapa MD Lymphocytes (Bld) [#/Vol] 2.59 10*3/uL Normal 1.10-3.70 [facility] Comment on above: Performed By: #### C P, LIPR, MG, CDP, TSH, GLYHGB #### [address] [address] Gynecological Assistant: Hermilo Thapa MD Lymphocytes/100 WBC (Bld) 26 % Normal 24-43 [facility] Comment on above: Performed By: #### C P, LIPR, MG, CDP, TSH, GLYHGB #### [address] [address] Gynecological Assistant: Hermilo Thapa MD MCH (RBC) [Entitic mass] 27.6 pg Normal 25.2-33.5 [facility] Comment on above: Performed By: #### C P, LIPR, MG, CDP, TSH, GLYHGB #### [address] [address] Gynecological Assistant: Hermilo Thapa MD MCHC (RBC) [Mass/Vol] 31.4 g/dL Normal 28.4-34.8 [facility] Comment on above: Performed By: #### C P, LIPR, MG, CDP, TSH, GLYHGB #### [address] [address] Gynecological Assistant: Hermilo Thapa MD MCV (RBC) [Entitic vol] 88.0 fL Normal 82.6-102.9 [facility] Comment on above: Performed By: #### C P, LIPR, MG, CDP, TSH, GLYHGB #### [address] [address] Gynecological Assistant: Hermilo Thapa MD Monocytes (Bld) [#/Vol] 0.59 10*3/uL Normal 0.10-1.20 [facility] Comment on above: Performed By: #### C P, LIPR, MG, CDP, TSH, GLYHGB #### [address] [address] Gynecological Assistant: Hermilo Thapa MD Monocytes/100 WBC (Bld) 6 % Normal 3-12 [facility] Comment on above: Performed By: #### C P, LIPR, MG, CDP, TSH, GLYHGB #### [address] [address] Gynecological Assistant: Hermilo Thapa MD Neutrophil (Seg) 66 % High 36-65 [facility] Comment on above: Performed By: #### C P, LIPR, MG, CDP, TSH, GLYHGB #### [address] [address] Gynecological Assistant: Hermilo Thapa MD NRBC Automated 0.0 per 100 WBC Normal 0.0 [facility] Comment on above: Performed By: #### C P, LIPR, MG, CDP, TSH, GLYHGB #### [address] [address] Gynecological Assistant: Hermilo Thapa MD Platelet mean volume (Bld) [Entitic vol] 10.2 fL Normal 8.1-13.5 [facility] Comment on above: Performed By: #### C P, LIPR, MG, CDP, TSH, GLYHGB #### [address] [address] Gynecological Assistant: Hermilo Thapa MD Platelets (Bld) [#/Vol] 325 10*3/uL Normal 138-453 [facility] Comment on above: Performed By: #### C P, LIPR, MG, CDP, TSH, GLYHGB #### [address] [address] Gynecological Assistant: Hermilo Thapa MD RBC (Bld) [#/Vol] 4.24 10*6/uL Normal 3.95-5.11 [facility] Comment on above: Performed By: #### C P, LIPR, MG, CDP, TSH, GLYHGB #### [address] [address] Gynecological Assistant: Hermilo Thapa MD RBC morphology finding Nom (Bld) ANISOCYTOSIS PRESENT Normal [facility] Comment on above: Performed By: #### C P, LIPR, MG, CDP, TSH, GLYHGB #### [address] [address] Gynecological Assistant: Hermilo Thapa MD WBC (Bld) [#/Vol] 9.8 10*3/uL Normal 3.5-11.3 [facility] Comment on above: Performed By: #### C P, LIPR, MG, CDP, TSH, GLYHGB #### [address] [address] Gynecological Assistant: Hermilo Thapa MD Comp Metabolic Profon 2023 Albumin [Mass/Vol] 4.4 g/dL Normal 3.5-5.2 [facility] Comment on above: Performed By: #### C P, LIPR, MG, CDP, TSH, GLYHGB #### [address] [address] Gynecological Assistant: Hermilo Thapa MD Albumin/Glob Ratio 1.0 Normal 1.0-2.5 [facility] Comment on above: Performed By: #### C P, LIPR, MG, CDP, TSH, GLYHGB #### [address] [address] Gynecological Assistant: Hermilo Thapa MD Alkaline Phos 103 U/L Normal 35-104 [facility] Comment on above: Performed By: #### C P, LIPR, MG, CDP, TSH, GLYHGB #### [address] [address] Gynecological Assistant: Hermilo Thapa MD ALT [Catalytic activity/Vol] 15 U/L Normal 10-35 [facility] Comment on above: Performed By: #### C P, LIPR, MG, CDP, TSH, GLYHGB #### [address] [address] Gynecological Assistant: Hermilo Thapa MD Anion gap [Moles/Vol] 13 mmol/L Normal 9-16 [facility] Comment on above: Performed By: #### C P, LIPR, MG, CDP, TSH, GLYHGB #### [address] [address] Gynecological Assistant: Hermilo Thapa MD AST [Catalytic activity/Vol] 18 U/L Normal 10-35 [facility] Comment on above: Performed By: #### C P, LIPR, MG, CDP, TSH, GLYHGB #### [address] [address] Gynecological Assistant: Hermilo Thapa MD Bilirubin [Mass/Vol] 0.3 mg/dL Normal 0.00-1.20 [facility] Comment on above: Performed By: #### C P, LIPR, MG, CDP, TSH, GLYHGB #### [address] [address] Gynecological Assistant: Hermilo Thapa MD Calcium [Mass/Vol] 9.9 mg/dL Normal 8.6-10.4 [facility] Comment on above: Performed By: #### C P, LIPR, MG, CDP, TSH, GLYHGB #### [facility] [employer] [address] [place] [address] Gynecological Assistant: Hermilo Thapa MD Chloride [Moles/Vol] 103 mmol/L Normal 98-107 [facility] Comment on above: Performed By: #### C P, LIPR, MG, CDP, TSH, GLYHGB #### [facility] [employer] [address] [place] [address] Gynecological Assistant: Hermilo Thapa MD CO2 [Moles/Vol] 23 mmol/L Normal 20-31 [facility] Comment on above: Performed By: #### C P, LIPR, MG, CDP, TSH, GLYHGB #### [address] [phone] Gynecological Assistant: Hermilo Thapa MD Creatinine [Mass/Vol] 1.0 mg/dL High 0.50-0.90 [facility] Comment on above: Performed By: #### C P, LIPR, MG, CDP, TSH, GLYHGB #### [address] [phone] Gynecological Assistant: Hermilo Thapa MD GFR/1.73 sq M.predicted among non-blacks MDRD (S/P/Bld) [Vol rate/Area] 64 mL/min/{1.73_m2} Normal >60 [facility] Comment on above: Result Comment: [...] P, LIPR, MG, CDP, TSH, GLYHGB #### [address] [phone] Gynecological Assistant: Hermilo Thapa MD Glucose [Mass/Vol] 161 mg/dL High 74-99 [facility] Comment on above: Performed By: #### C P, LIPR, MG, CDP, TSH, GLYHGB #### [address] [id number] Gynecological Assistant: Hermilo Thapa MD Potassium [Moles/Vol] 4.7 mmol/L Normal 3.7-5.3 [facility] Comment on above: Performed By: #### C P, LIPR, MG, CDP, TSH, GLYHGB #### [address] [address] Gynecological Assistant: Hermilo Thapa MD Protein [Mass/Vol] 7.9 g/dL Normal 6.6-8.7 [facility] Comment on above: Performed By: #### C P, LIPR, MG, CDP, TSH, GLYHGB #### [facility] [address] [place] [address] Gynecological Assistant: Hermilo Thapa MD Sodium [Moles/Vol] 139 mmol/L Normal 136-145 [facility] Comment on above: Performed By: #### C P, LIPR, MG, CDP, TSH, GLYHGB #### [facility] [employer] [address] [place] [address] Gynecological Assistant: Hermilo Thapa MD Urea nitrogen [Mass/Vol] 21 mg/dL Normal 8-23 [facility] Comment on above: Performed By: #### C P, LIPR, MG, CDP, TSH, GLYHGB #### [address] [address] Gynecological Assistant: Hermilo Thapa MD Hemoglobin A1Con 07-16-2023 Glucose [Mass/Vol] 206 mg/dL Normal [facility] Comment on above: Result Comment: The ADA and AACC recommend providing the estimated average glucose result to permit better patient understanding of their HBA1c result. Performed By: #### C P, LIPR, MG, CDP, TSH, GLYHGB #### [facility] [employer] [address] [place] [address] Gynecological Assistant: Hermilo Thapa MD HbA1c (Bld) [Mass fraction] 8.8 % High 4.0-6.0 [facility] Comment on above: Performed By: #### C P, LIPR, MG, CDP, TSH, GLYHGB #### [facility] [employer] [address] [place] [address] Gynecological Assistant: Hermilo Thapa MD Lipid Profileon 07-16-2023 Cholesterol [Mass/Vol] 117 mg/dL Normal 0-199 [facility] Comment on above: Result Comment: Cholesterol Guidelines: <200 Desirable 200-240 Borderline >240 Undesirable Performed By: #### C P, LIPR, MG, CDP, TSH, GLYHGB #### [address] [phone] Gynecological Assistant: Hermilo Thapa MD Cholesterol in HDL [Mass/Vol] 36 mg/dL Low >40 [facility] Comment on above: Result Comment: HDL Guidelines: <40 Undesirable 40-59 Borderline >59 Desirable Performed By: #### C P, LIPR, MG, CDP, TSH, GLYHGB #### [address] [phone] Gynecological Assistant: Hermilo Thapa MD Cholesterol in LDL [Mass/Vol] 60 mg/dL Normal 0-100 [facility] Comment on above: Result Comment: LDL Guidelines: <100 Desirable 100-129 Near to/above Desirable 130-159 Borderline >159 Undesirable Direct (measured) LDL and calculated LDL are not interchangeable tests. Performed By: #### C P, LIPR, MG, CDP, TSH, GLYHGB #### [facility] [employer] [address] [place] [address] Gynecological Assistant: Hermilo Thapa MD Cholesterol in VLDL [Mass/Vol] 21 mg/dL Normal [facility] Comment on above: Performed By: #### C P, LIPR, MG, CDP, TSH, GLYHGB #### [facility] [employer] [address] [place] [phone] Gynecological Assistant: Hermilo Thapa MD Cholesterol.total/C holesterol in HDL [Mass ratio] 3.0 {ratio} Normal [facility] Comment on above: Performed By: #### C P, LIPR, MG, CDP, TSH, GLYHGB #### [facility] [address] [place] [address] Gynecological Assistant: Hermilo Thapa MD Triglyceride [Mass/Vol] 107 mg/dL Normal <150 [facility] Comment on above: Result Comment: Triglyceride Guidelines: <150 Desirable 150-199 Borderline 200-499 High >499 Very high Based on AHA Guidelines for fasting triglyceride, November 2011. Performed By: #### C P, LIPR, MG, CDP, TSH, GLYHGB #### [facility] [employer] [facility] [place] [address] Gynecological Assistant: Hermilo Thapa MD Magnesiumon 07-16-2023 Magnesium [Mass/Vol] 1.6 mg/dL Normal 1.6-2.4 [facility] Comment on above: Performed By: #### C P, LIPR, MG, CDP, TSH, GLYHGB #### [facility] [employer] [address] [place] [address] Gynecological Assistant: Hermilo Thapa MD Thyroid Stim. Horm.on 2023 Thyroid Stim. Horm. 0.74 uIU/mL Normal 0.27-4.20 [facility] Comment on above: Performed By: #### C P, LIPR, MG, CDP, TSH, GLYHGB #### [facility] [employer] [facility] [place] [address] Gynecological Assistant: Hermilo Thapa MD Type + Screenon 07-16-2023 Type + Screen Sample Expiration 07/31/2023,2359 Arm Band Number BE [id number] ABO/Rh(D) O POSITIVE Antibody Screen NEGATIVE Normal [facility] Comment on above: Performed By: #### T YS ####[facility] [address] [place] [address] Lab Director: Hermilo Thapa MD Hemoglobin A1Con 06-30-2023 Glucose [Mass/Vol] 177 mg/dL Normal [facility] Comment on above: Result Comment: The ADA and AACC recommend providing the estimated average glucose result to permit better patient understanding of their HBA1c result. Performed By: #### G LYHGB #### [facility] [address] [place] [address] Gynecological Assistant: Hermilo Thapa MD #### TSHX #### [facility] [address] [place], [place] [phone] Gynecological Assistant: Salvador Israel MD HbA1c (Bld) [Mass fraction] 7.8 % High 4.0-6.0 [facility] Comment on above: Performed By: #### G LYHGB #### [address] [address] Gynecological Assistant: Hermilo Thapa MD #### TSHX #### [facility] [address] [place], [place] [phone] Gynecological Assistant: Salvador Israel MD Lipid Profileon 06-30-2023 Cholesterol [Mass/Vol] 144 mg/dL Normal 0-199 [facility] Comment on above: Result Comment: Cholesterol Guidelines: <200 Desirable 200-240 Borderline >240 Undesirable Performed By: #### L IPR #### [address] [address] Gynecological Assistant: Hermilo Thapa MD Cholesterol in HDL [Mass/Vol] 48 mg/dL Normal >40 [facility] Comment on above: Result Comment: HDL Guidelines: <40 Undesirable 40-59 Borderline >59 Desirable Performed By: #### L IPR #### [address] [address] Gynecological Assistant: Hermilo Thapa MD Cholesterol in LDL [Mass/Vol] 73 mg/dL Normal 0-100 [facility] Comment on above: Result Comment: LDL Guidelines: <100 Desirable 100-129 Near to/above Desirable 130-159 Borderline >159 Undesirable Direct (measured) LDL and calculated LDL are not interchangeable tests. Performed By: #### L IPR #### [address] [address] Gynecological Assistant: Hermilo Thapa MD Cholesterol in VLDL [Mass/Vol] 23 mg/dL Normal [facility] Comment on above: Performed By: #### L IPR #### [facility] [address] [place] [address] Gynecological Assistant: Hermilo Thapa MD Cholesterol.total/C holesterol in HDL [Mass ratio] 3.0 {ratio} Normal [facility] Comment on above: Performed By: #### L IPR #### [place] [place] [address] Gynecological Assistant: Hermilo Thapa MD Triglyceride [Mass/Vol] 115 mg/dL Normal <150 [facility] [facility] Comment on above: Result Comment: Triglyceride Guidelines: <150 Desirable 150-199 Borderline 200-499 High >499 Very high Based on AHA Guidelines for fasting triglyceride, November 2011. Performed By: #### L IPR #### [address] [address] Gynecological Assistant: Hermilo Thapa MD Laboratory - Hematology and Cell countson 06-29-2023 HbA1c (Bld) [Mass fraction] 7.8 % [facility] TSH w/reflex to FT4on 2023 Thyroid Stim. Horm. 3.23 uIU/mL Normal 0.30-5.00 [facility] Comment on above: Performed By: #### G LYHGB #### [address] [address] Gynecological Assistant: Hermilo Thapa MD #### TSHX #### [facility] [address] [place] [address] Gynecological Assistant: Salvador Israel MD CT ABDOMEN PELVIS W [...] Etta Jay MD 06/20/23 Final result Normal [facility] HPV DNA High Riskon 06-16-19 HPV Interp Normal [facility] Comment on above: Result Comment: [...] other forensic purposes. Performed By: #### H PV ####[facility] [place] [address] lab Director: Hermilo Thapa MD HPV Type 16 Not detected Normal NOTDET [facility] Comment on above: Performed By: #### H PV ####[address] [place] [address] Lab Director: Hermilo Thapa MD HPV Type 18 Not detected Normal [facility] Comment on above: Performed By: #### H PVH ####[address] [place], [place] [phone] Director: Hermilo Thapa MD Other High Risk HPV Not detected Normal [facility] Comment on above: Performed By: #### H PVH ####[address] [place], [place] [phone] Director: Hermilo Thapa MD HPV Sample .THIN PREP Normal [facility] Comment on above: Performed By: #### H PVH ####[address] [place] [address] Lab Director: Hermilo Thapa MD Source CERVICAL MATERIAL Normal [facility] Comment on above: Performed By: #### H PVH ####[address] [address] Lab Director: Hermilo Thapa MD Cytology Reporton 06-15-2023 Cytology report Cyto stain.thin prep Doc (Cvx/Vag) (NOTE) Path Number: [id number] DIAGNOSIS Imaged ThinPrep Pap - Cervical (1 [...] or for other forensic purposes. Performed at [facility], [address] [place], [place] [id number] . Source of Specimen: A: Imaged ThinPrep Pap - Cervical (1 monolayer slide) HPV Reflex?.................. ....HPV Regardless Clinical History Postmenopausal Z12.4 Encounter for screening for malignant neoplasm of cervix Processing Lab: [address] [phone] Interpretation performed at [address] [phone] This Pap Test has been evaluated with [...] GYNECOLOGIC CYTOLOGY REPORT Patient Name: LESLI CLAY [facility] Rec: [id number] [facility] ANATOMIC PATHOLOGY [address] [place] [address]. [place], [place] [address] Normal [facility] SURGICAL PATHOLOGY REFERENCE LAB CONSULTon 05-29-2023 CASE REPORT Normal [facility] Comment on above: Order Comment: Speci men Type: FORMALIN-FIXED PARAFFIN-EMBEDDED TISSUE SPECIMEN Ordering Facility: [facility] Address: [address] [place] [phone] Result Comment: Surg [facility] Pathology Report Case: [id number] Authorizing Provider: Lukasz Neal MD Collected: 05/29/2023 12:39 PM Ordering Location: [facility] Received: 05/29/2023 12:38 PM [facility] Pathologist: Jeri Dickerson MD Specimen: Slide(s), 2 SLIDES ([id number]) Performed By: #### L [id number] #### [facility] CLIA [id number] [address] [place] [address] CLINICAL HISTORY CONSULT REQUESTED Normal [facility] Comment on above: Order Comment: Speci men Type: FORMALIN-FIXED PARAFFIN-EMBEDDED TISSUE SPECIMEN Ordering Facility: [facility] Address: [address] [place], [place] [phone] Performed By: #### L [id number] #### [facility] CLIA [id number] [address] [place] [address] DIAGNOSIS COMMENT Thank you for sendin g [...] give me a call at . Normal [facility] Comment on above: Order Comment: Speci men Type: FORMALIN-FIXED PARAFFIN-EMBEDDED TISSUE SPECIMEN Ordering Facility: [facility] Address: [address] [place] [phone] Performed By: #### L [id number] #### [facility] CLIA [id number] [address] [place] [address] FINAL DIAGNOSIS Normal [facility] Comment on above: Order Comment: Speci men Type: FORMALIN-FIXED PARAFFIN-EMBEDDED TISSUE SPECIMEN Ordering Facility: [facility] Address: [address] [place] [phone] Result Comment: Revi ew of outside slides, dated 05/26/2023: Endometrium, curettage: -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 Performed By: #### L [id number] #### [facility] CLIA [id number] [address] [place] [address] [place] FINAL PERFORMING LAB Normal [facility] Comment on above: Order Comment: Speci men Type: FORMALIN-FIXED PARAFFIN-EMBEDDED TISSUE SPECIMEN Ordering Facility: [facility] Address: [address] [place] [phone] Result Comment: Diag nostic interpretation performed at [place] [address] CLIA# [id number] Tenter Frame Operator: Josh Orellana M.D. Performed By: #### L [id number] #### [facility] CLIA [id number] [address] [place] [address] [place] No Panel Informationon 05-10 Bedside Glucose 121 [facility] Laboratory - Chemistry and C hemistry - challengeon 04-22-2023 Albumin [Mass/Vol] 4.0 g/dL [facility] ALP [Catalytic activity/Vol] 104 U/L [facility] ALT [Catalytic activity/Vol] 19 U/L [facility] AST [Catalytic activity/Vol] 17 U/L [facility] Bilirubin [Mass/Vol] 0.2 mg/dL [facility] Calcium [Mass/Vol] 9.8 mg/dL [facility] Chloride [Moles/Vol] 101 mmol/L [facility] CO2 [Moles/Vol] 28 mmol/L [facility] Creatinine [Mass/Vol] 0.75 mg/dL [facility] Glucose [Mass/Vol] 228 mg/dL [facility] Potassium [Moles/Vol] 5.0 mmol/L [facility] Protein [Mass/Vol] 6.8 g/dL [facility] Sodium [Moles/Vol] 137 mmol/L [facility] Urea nitrogen [Mass/Vol] 21 mg/dL [facility] Laboratory - Hematology and Cell countson 04-22-2023 HbA1c (Bld) [Mass fraction] 8.9 % [facility] No Panel Informationon 04-21 Estimated GFR (Non- 89 mL/min [facility] No Panel Informationon 04-07 Bedside Glucose 182 [facility] A1C HEMOGLOBINon 02-03-2023 HbA1c (Bld) [Mass fraction] 9.7 % [email or web address] Other Glucose - FINGER STICKon Glucose [Mass/Vol] 178 mg/dL [email or web address] Other HbA1c (Bld) [Mass fraction]o n 02-03-2023 A1C HEMOGLOBIN [employer] Other Glucose - FINGER STICKon Glucose [Mass/Vol] 180 mg/dL [email or web address] Other A1C HEMOGLOBINon 10-03-2022 HbA1c (Bld) [Mass fraction] 8.3 % [email or web address] Other Glucose - FINGER STICKon Glucose [Mass/Vol] 211 mg/dL [email or web address] Other HbA1c (Bld) [Mass fraction]o n 10-03-2022 A1C HEMOGLOBIN [employer] Other Creatinine (Bld) [Mass/Vol]O rdered By: Martine Tobias on 09-19-2022 Creatinine [Mass/Vol] 0.7 mg/dL 0.6-1.3 [facility] Comment on above: ER/ESD physician is notified/shown all ISTAT results.Critical values may be confirmed by laboratory testing ifdeemed necessary by ER attending doctor. A1C HEMOGLOBINon 06-06-2022 HbA1c (Bld) [Mass fraction] 8.0 % [email or web address] Other Glucose - FINGER STICKon Glucose [Mass/Vol] 156 mg/dL [email or web address] Other HbA1c (Bld) [Mass fraction]o n 06-06-2022 A1C HEMOGLOBIN [facility] Other POINT OF CARE GLUCOSEon 05-17 Glucose [Mass/Vol] 185 mg/dL Critically high 74-106 T [facility] Comment on above: Performed By: #### P OCGLUC #### [facility] [address] [place] [address] Dr. Keegan Neal A1C HEMOGLOBINon 03-06-2022 HbA1c (Bld) [Mass fraction] 7.8 % [facility] [employer] Other CREATININEon 03-06-2022 Creatinine [Mass/Vol] 0.82 mg/dL Normal 0.55-1.02 [facility] Comment on above: Performed By: #### C EJ #### [facility] [address] [place] [address] Dr. Keegan Neal EGFR-AF [place] CITIZEN >60 Normal >=60 [facility] Comment on above: Performed By: #### C EJ #### [facility] [address] [place] [address] Dr. Keegan Neal EGFR-NON AF [place] CITIZ[place] >60 Normal >=60 [facility] Comment on above: Performed By: #### C EJ #### [facility] [address] [place] [address] LSPINE WO W CONon 023 CT LSPINE WO W CON EXAMINATION: CT LSPI NE WO W CON, 03/06/2022 8:24 AM EST [...] by: BLANE THOMAS Date: 2022-03-06 11:22 Normal [facility] Glucose - FINGER STICKon Glucose [Mass/Vol] 200 mg/dL [email or web address] Other HbA1c (Bld) [Mass fraction]o n 03-06-2022 A1C HEMOGLOBIN [employer] Other A1C HEMOGLOBINon 10-28-2021 HbA1c (Bld) [Mass fraction] 7.0 % [email or web address] Other Glucose - FINGER STICKon Glucose [Mass/Vol] 110 mg/dL [email or web address] Other HbA1c (Bld) [Mass fraction]o n 10-28-2021 A1C HEMOGLOBIN [employer] Other A1C HEMOGLOBINon 07-04-2021 HbA1c (Bld) [Mass fraction] 6.6 % [email or web address] Other Glucose - FINGER STICKon Glucose [Mass/Vol] 110 mg/dL [email or web address] Other HbA1c (Bld) [Mass fraction]o n 07-04-2021 A1C HEMOGLOBIN [employer] Other A1C HEMOGLOBINon 11-21-2020 HbA1c (Bld) [Mass fraction] 6.0 % [facility] [employer] Other Glucose - FINGER STICKon Glucose [Mass/Vol] 98 mg/dL [facility] [employer] Other HbA1c (Bld) [Mass fraction]o n 11-21-2020 A1C HEMOGLOBIN [facility] Other Discharge Summaryon 09-26-19 Discharge Summary MR#: [id number] [facility]li Clay Admitted: 09/08/2016 Discharged: [...] 09/24/2016/02:52 P/Que Cano M.D.Date Trans: 09/25/2016 08:08 A/mmoDN_JN:[id number] cc: Rosales Taylor M.D. [address] [facility] [address] Normal [facility] KNEE RIGHT 3 Son 7 KNEE RIGHT 3 S [facility] Fjv[address] [place] [address] P atient Name: LESLI CLAY : 1960ex: FAge: Race: WhiteMRN: [id number]. Location: 84Patient Status: Date: 09/25/2016 8:15:00 AMCompleted Date: 09/25/2016 08:22 AMRequesting Provider: QUE BLAKE Attending Provider: Report Copy To: Signs & Symptoms: Z96.651 Presence of right artificial knee joint S31Vsfokja: AthenaComments: , , , Ordering Provider - QUE BLAKE MD , Exam: KNEE RIGHT 3 VWSAccession #: [id number] ======KNEE RIGHT 3 VWS 09/25/2016 8:22 AM [...] changes. Electronically signed by:Mindy Tomas. Transcribed by: [email or web address], User Resident: Electronically Signed by: MINDY TOMAS @ 09/25/2016 04:44 PM Normal [facility] Comment on above: Order Comment: , , = ========= , Ordering Provider - QUE BLAKE MD , Consultationon 09-21-2016 Consultation MR#: [id number] Name[facility] Lesli [facility] Date [...] 23, 2016, with Dr. Blake. In [facility], she was placed in a hinged knee brace to prevent flexion of theknee. She was given renewal of Keflex. We prescribed [place] for pain controland we applied an Armando wrap for edema control.Reviewed By:Desmond Mena MD 09/22/2016 08:26 AElectronically Signed by:Martin Fonseca MD 09/25/2016 03:22 P ___Martin Fonseca MD I was not present but assume all responsibility for the exam. NOTBILLABLEDate Dict: 09/21/2016/10:51 A/Desmond Mena MDDate Trans: 09/21/2016 11:52 A/Nigel_JN:[id number] cc: Rosales Taylor M.D. [address] [facility] [address] Normal [facility] BASIC METABOLIC PANELon Calcium 9.6 mg/dL Normal 8.6-10.3 [facility] Comment on above: Performed By: #### 0 0071 ####[facility] [place] [address], [facility] Chloride 99 mmol/L Normal 98-107 [facility] Comment on above: Performed By: #### 0 0071 ####[facility] [place] [address], [facility] CO2 29 mmol/L Normal 21-31 [facility] Comment on above: Performed By: #### 0 0071 ####[facility] [place] [address], [facility] Creatinine 0.91 mg/dL Normal 0.60-1.20 [facility] Comment on above: Performed By: #### 0 0071 ####[facility] [place] [address], [facility] eGFR (black) mL/min/{1.73_m2} Normal >60 [facility] Comment on above: Performed By: #### 0 0071 ####[facility] [facility] eGFR (non-black) mL/min/{1.73_m2} Normal >60 [facility] Comment on above: Performed By: #### 0 0071 ####[place] [address] [facility].[address] Glucose mass conc 151 mg/dL High 70-100 [facility] Comment on above: Performed By: #### 0 0071 ####[place] [address] [facility].[address] Potassium molar conc 4.0 mmol/L Normal 3.5-5.1 [facility] Comment on above: Performed By: #### 0 0071 ####[facility] [place] [address], [facility] Sodium 137 mmol/L Normal 136-145 [facility] Comment on above: Performed By: #### 0 0071 ####[facility] [place] [address], [facility] Urea nitrogen 13 mg/dL Normal 7-25 [facility] Comment on above: Performed By: #### 0 0071 ####[facility] [facility] C REACTIVE PROTEINon 017 C reactive protein (CRP) 28.5 mg/L High 0.0-7.0 [facility] Comment on above: Performed By: #### 0 0071 ####[facility] [facility].[address] CBC W/DIFFon 09-20-2016 Basophils Auto #/vol (Bld) 0.5 % Normal 0.0-2.0 [facility] Comment on above: Performed By: #### 0 0071 ####[place] [address] Eosinophils/100 leukocytes 2.1 % Normal 0.0-5.0 [facility] Comment on above: Performed By: #### 0 0071 ####[address] Erythrocyte distribution width Auto Ratio (RBC) 17.1 % High 11.5-16.9 [facility] Comment on above: Performed By: #### 0 0071 ####[place] [address] Erythrocytes (RBC) 3.39 mill/mm3 Low 3.50-5.50 [facility] Comment on above: Performed By: #### 0 0071 ####[address] Hematocrit (HCT) 31.4 % Low 36.0-48.0 [facility] Comment on above: Performed By: #### 0 0071 ####[address] Hemoglobin mass conc (Bld) 10.3 g/dL Low 12.0-15.0 [facility] Comment on above: Performed By: #### 0 0071 ####[place] [address] [facility].[address] Lymphocytes/100 leukocytes 19.8 % Low 20.0-40.0 [facility] Comment on above: Performed By: #### 0 0071 ####[facility] [place] [address], [facility] MCH 30.3 pg Normal 24.0-32.0 [facility] Comment on above: Performed By: #### 0 0071 ####[facility] MCHC mass conc (RBC) 32.7 g/dL Normal 32.0-36.0 [facility] Comment on above: Performed By: #### 0 0071 ####[facility] [facility].[address] MCV 92.6 fL Normal 80.0-100.0 [facility] Comment on above: Performed By: #### 0 0071 ####[facility] [facility].[address] METHOD Normal [facility] Comment on above: Result Comment: Auto mated differential performedNormal RBC Morphology Performed By: #### 0 0071 ####[facility] MONOS 5.8 % Normal 2-8 [facility] Comment on above: Performed By: #### 0 0071 ####[facility] [facility].[address] Neutrophils/100 leukocytes 71.8 % High 50-70 [facility] Comment on above: Performed By: #### 0 0071 ####[facility] [place] [address], [facility] PLAT CNT 400 Thou/mm3 Normal 100-400 [facility] Comment on above: Performed By: #### 0 0071 ####[facility] [place] [address], [place] WBC (Leukocytes) 10.6 Thou/mm3 High 4.0-10.0 [facility] Comment on above: Performed By: #### 0 0071 ####[facility] [place] [address], [place] SEDIMENTATION RATEon 2 017 SED RATE 107 mm/hr High 0-20 [facility] Comment on above: Performed By: #### 0 0071 ####[facility] [place] [address], [place] POC GLUCOSE LABon 09-15-2016 Glucose mass conc 187 mg/dL High 70-100 [facility] Comment on above: Performed By: #### 0 0071 ####[place] [address] [place] [address], [place] Glucose mass conc 153 mg/dL High 70-100 [facility] Comment on above: Performed By: #### 5 610, [address] ####[facility] [place] [address], [facility] POC GLUCOSE LABon 09-14-2016 Glucose mass conc 198 mg/dL High 70-100 [facility] Comment on above: Performed By: #### 5 610, 115[address] ####[facility] [place] [address], [place] Glucose mass conc 188 mg/dL High 70-100 [facility] Comment on above: Performed By: #### 5 6101, 727[address] ####[facility] [place] [address], [place] Glucose mass conc 192 mg/dL High 70-100 [facility] Comment on above: Performed By: #### 5 610, 289[address] ####[facility] [place] [address], [place] Glucose mass conc 155 mg/dL High 70-100 [facility] Comment on above: Performed By: #### 5 6100, [address] ####[facility] [place] [address], [place] POC GLUCOSE LABon 09-13-2016 Glucose mass conc 223 mg/dL High 70-100 [facility] Comment on above: Performed By: #### 5 6100, [address] ####[facility] [place] [address], [place] Glucose mass conc 212 mg/dL High 70-100 [facility] Comment on above: Performed By: #### 5 6100, [address] ####[facility] [place] [address], [place] Glucose mass conc 111 mg/dL High 70-100 [facility] Comment on above: Performed By: #### 5 6100, 19570 ####[facility] [place] [address], [place] Glucose mass conc 199 mg/dL High 70-100 [facility] Comment on above: Performed By: #### 5 6100, 14752 ####[facility] [place] [address], [place] Glucose mass conc 149 mg/dL High 70-100 [facility] Comment on above: Performed By: #### 5 6100, 24530 ####[facility] [place] [address], [place] POC GLUCOSE LABon 09-12-2016 Glucose mass conc 205 mg/dL High 70-100 [facility] Comment on above: Performed By: #### 5 610, 40079 ####[facility] [place] [address], [place] Glucose mass conc 132 mg/dL High 70-100 [facility] Comment on above: Performed By: #### 5 6100, 19318 ####[facility] [place] [address], [place] Glucose mass conc 184 mg/dL High 70-100 [facility] Comment on above: Performed By: #### 5 6100, 36122 ####[facility] [place] [address], [place] Glucose mass conc 158 mg/dL High 70-100 [facility] Comment on above: Performed By: #### 5 6100, 96239 ####[facility] [place] [address], [place] POC GLUCOSE LABon 09-11-2016 Glucose mass conc 194 mg/dL High 70-100 [facility] Comment on above: Performed By: #### 5 6100, 60819 ####[facility] [place] [address], [place] Glucose mass conc 192 mg/dL High 70-100 [facility] Comment on above: Performed By: #### 5 6100, 33773 ####[facility] [place] [address], [place] Glucose mass conc 221 mg/dL High 70-100 [facility] Comment on above: Performed By: #### 5 6100, 20054 ####[facility] [place] [address], [place] Glucose mass conc 147 mg/dL High 70-100 [facility] Comment on above: Performed By: #### 5 6100, 96662 ####[facility] [place] [address], [place] POC GLUCOSE LABon 09-10-2016 Glucose mass conc 224 mg/dL High 70-100 [facility] Comment on above: Performed By: #### 5 6100, 99772 ####[facility] [place] [address], [facility] Glucose mass conc 156 mg/dL High 70-100 [facility] Comment on above: Performed By: #### 1 0008 ####[facility] [place] [address], [facility] Glucose mass conc 240 mg/dL High 70-100 [facility] Comment on above: Performed By: #### 1 0008 ####[facility] [place] [address], [facility] Glucose mass conc 171 mg/dL High 70-100 [facility] Comment on above: Performed By: #### 1 0008 ####[facility] [place] [address], [facility] BASIC METABOLIC PANELon 07-2 Calcium 8.4 mg/dL Low 8.6-10.3 [facility] Comment on above: Order Comment: No: D o not add to previous draw Performed By: #### 1 0008 ####[facility] [place] [address], [facility] Chloride 99 mmol/L Normal 98-107 [facility] Comment on above: Order Comment: No: D o not add to previous draw Performed By: #### 1 0008 ####[facility] [place] [address], [facility] CO2 27 mmol/L Normal 21-31 [facility] Comment on above: Order Comment: No: D o not add to previous draw Performed By: #### 1 0008 ####[facility] [place] [address], [facility] Creatinine 1.11 mg/dL Normal 0.60-1.20 [facility] Comment on above: Order Comment: No: D o not add to previous draw Performed By: #### 1 0008 ####[facility] [place] [address], [facility] eGFR (black) mL/min/{1.73_m2} Normal >60 [facility] Comment on above: Order Comment: No: D o not add to previous draw Performed By: #### 1 0008 ####[facility] [place] [address], [facility] eGFR (non-black) 51 ml/min/1.73sq m Abnormal >60 [facility] Comment on above: Order Comment: No: D o not add to previous draw Performed By: #### 1 0008 ####[facility] [place] [address], [facility] Glucose mass conc 161 mg/dL High 70-100 [facility] Comment on above: Order Comment: No: D o not add to previous draw Performed By: #### 1 0008 ####[facility] [place] [address], [facility] Potassium molar conc 4.2 mmol/L Normal 3.5-5.1 [facility] Comment on above: Order Comment: No: D o not add to previous draw Performed By: #### 1 0008 ####[facility] [place] [address], [facility] Sodium 134 mmol/L Low 136-145 [facility] Comment on above: Order Comment: No: D o not add to previous draw Performed By: #### 1 0008 ####[facility] [place] [address], [facility] Urea nitrogen 24 mg/dL Normal 7-25 [facility] Comment on above: Order Comment: No: D o not add to previous draw Performed By: #### 1 0008 ####[facility] [place] [address], [facility] CBC W/DIFFon 09-09-2016 Basophils Auto #/vol (Bld) 0.2 % Normal 0.0-2.0 [facility] Comment on above: Order Comment: No: D o not add to previous draw Performed By: #### 1 0008 ####[facility] [place] [address], [facility] Eosinophils/100 leukocytes 1.0 % Normal 0.0-5.0 [facility] Comment on above: Order Comment: No: D o not add to previous draw Performed By: #### 1 0008 ####[facility] [place] [address], [facility] Erythrocyte distribution width Auto Ratio (RBC) 16.9 % Normal 11.5-16.9 [facility] Comment on above: Order Comment: No: D o not add to previous draw Performed By: #### 1 0008 ####[facility] [place] [address], [facility] Erythrocytes (RBC) 3.31 mill/mm3 Low 3.50-5.50 [facility] Comment on above: Order Comment: No: D o not add to previous draw Performed By: #### 1 0008 ####[facility] [place] [address], [facility] Hematocrit (HCT) 30.7 % Low 36.0-48.0 [facility] Comment on above: Order Comment: No: D o not add to previous draw Performed By: #### 1 0008 ####[facility] [place] [address], [facility] Hemoglobin mass conc (Bld) 10.0 g/dL Low 12.0-15.0 [facility] Comment on above: Order Comment: No: D o not add to previous draw Performed By: #### 1 0008 ####[facility] [place] [address], [facility] Lymphocytes/100 leukocytes 25.6 % Normal 20.0-40.0 [facility] Comment on above: Order Comment: No: D o not add to previous draw Performed By: #### 1 0008 ####[facility] [facility].[address] MCH 30.3 pg Normal 24.0-32.0 [facility] Comment on above: Order Comment: No: D o not add to previous draw Performed By: #### 1 0008 ####[facility] [facility] MCHC mass conc (RBC) 32.7 g/dL Normal 32.0-36.0 [facility] Comment on above: Order Comment: No: D o not add to previous draw Performed By: #### 1 0008 ####[facility] [facility].[address] MCV 92.7 fL Normal 80.0-100.0 [facility] Comment on above: Order Comment: No: D o not add to previous draw Performed By: #### 1 0008 ####[facility] [facility].[address] METHOD Normal [facility] Comment on above: Order Comment: No: D o not add to previous draw Result Comment: Auto mated differential performedNormal RBC Morphology Performed By: #### 1 0008 ####[facility] [facility].[address] MONOS 6.9 % Normal 2-8 [facility] Comment on above: Order Comment: No: D o not add to previous draw Performed By: #### 1 0008 ####[facility] [facility].[address] Neutrophils/100 leukocytes 66.3 % Normal 50-70 [facility] Comment on above: Order Comment: No: D o not add to previous draw Performed By: #### 1 0008 ####[facility] PLAT CNT 304 Thou/mm3 Normal 100-400 [facility] Comment on above: Order Comment: No: D o not add to previous draw Performed By: #### 1 0008 ####[facility] [facility].[address] WBC (Leukocytes) 8.7 Thou/mm3 Normal 4.0-10.0 [facility] Comment on above: Order Comment: No: D o not add to previous draw Performed By: #### 1 0008 ####[address] Operative Reporton 7 Operative Report MR#: [id number] [facility] Lesli Clay Room #: [id number] Discharge Date: Birthdate: 1960 OPERATIVE REPORTDATE OF [...] otherwiseimmediately available to assist. Date Dict: 09/08/2016/08:19 Velasquez/Que Cano M.D.Date Trans: 09/09/2016 04:17 A/Nigel_JN:[id number] cc: Rosales Taylor M.D. [address] [facility] [address] [place] [facility] POC GLUCOSE LABon 09-09-2016 Glucose mass conc 229 mg/dL High 70-100 [facility] Comment on above: Performed By: #### 1 0008 ####[facility] [place] [address], [place] Glucose mass conc 159 mg/dL High 70-100 [facility] Comment on above: Performed By: #### 1 0008 ####[facility] [place] [address], [place] Glucose mass conc 182 mg/dL High 70-100 [facility] Comment on above: Performed By: #### 1 0008 ####[facility] [place] [address], [place] Glucose mass conc 159 mg/dL High 70-100 [facility] Comment on above: Performed By: #### 1 0008 ####[facility] [place] [address], [place] Glucose mass conc 172 mg/dL High 70-100 [facility] Comment on above: Performed By: #### 1 0008 ####[facility] [place] [address], [place] POC GLUCOSE LABon 09-08-2016 Glucose mass conc 175 mg/dL High 70-100 [facility] Comment on above: Performed By: #### 8 5499 ####[facility] [place] [address], [place] Glucose mass conc 165 mg/dL High 70-100 [facility] Comment on above: Performed By: #### 8 5499 ####[facility] [place] [address], [facility] Glucose mass conc 173 mg/dL High 70-100 [facility] Comment on above: Performed By: #### 8 5499 ####[facility] [place], [place] [address] PORTABLE KNEE RIGHT 2 Son 09-08-2016 PORTABLE KNEE RIGHT 2 [facility] [address] [place] [id number] P atient Name: LESLI CLAY : 1960ex: FAge: Race: WhiteMRN: [id number]. Location: OUTPPatient Status: OVisit #: [id number] Date: 09/08/2016 2:05:00 PMCompleted Date: 09/08/2016 02:45 PMRequesting Provider: QUE CANO Attending Provider: QUE BLAKE Report Copy To: Signs & Symptoms: Pain ( specify Location)History: Patient history not availableComments: Hardware Evaluation, please do in PACUExam: PORTABLE KNEE RIGHT 2 VWSAccession #: [id number] ======PORTABLE KNEE RIGHT 2 VWS 09/08/2016 2:45 [...] arthroplasty Electronically signed by:Joan Cormier. Transcribed by: [email or web address], User Resident: Electronically Signed by: JOAN CORMIER @ 09/08/2016 02:48 PM Normal [facility] Comment on above: Order Comment: Hardw are Evaluation, please do in PACU APTTon 08-25-2016 aPTT 33.0 s Normal 25.0-35.0 [facility] Comment on above: Result Comment: ALL [...] THIS PURPOSE. Performed By: #### 5 6101, [id number] ####[facility] [facility].[address] BASIC METABOLIC PANELon 08-16 Calcium 9.9 mg/dL Normal 8.6-10.3 [facility] Comment on above: Performed By: #### 0 0071 ####[facility] [place] [address], [facility] Chloride 96 mmol/L Low 98-107 [facility] Comment on above: Performed By: #### 0 0071 ####[facility] [place] [address], [facility] CO2 29 mmol/L Normal 21-31 [facility] Comment on above: Performed By: #### 0 0071 ####[facility] [place] [address], [facility] Creatinine 0.94 mg/dL Normal 0.60-1.20 [facility] Comment on above: Performed By: #### 0 0071 ####[facility] [facility] eGFR (black) mL/min/{1.73_m2} Normal >60 [facility] Comment on above: Performed By: #### 0 0071 ####[place] [address] [facility].[address] eGFR (non-black) mL/min/{1.73_m2} Normal >60 Th e [facility] Comment on above: Performed By: #### 0 0071 ####[place] [address] [facility].[address] Glucose mass conc 128 mg/dL High 70-100 [facility] Comment on above: Performed By: #### 0 0071 ####[address] Potassium molar conc 4.0 mmol/L Normal 3.5-5.1 [facility] Comment on above: Performed By: #### 0 0071 ####[address] Sodium 135 mmol/L Low 136-145 [facility] Comment on above: Performed By: #### 0 0071 ####[place] [address] [facility].[address] Urea nitrogen 15 mg/dL Normal 7-25 [facility] Comment on above: Performed By: #### 0 0071 ####[address] CBC W/DIFFon 08-25-2016 Basophils Auto #/vol (Bld) 0.2 % Normal 0.0-2.0 [facility] Comment on above: Performed By: #### 5 0103 ####[address] [place] [address], [facility] Eosinophils/100 leukocytes 1.6 % Normal 0.0-5.0 [facility] Comment on above: Performed By: #### 5 0103 ####[facility] [facility].[address] Erythrocyte distribution width Auto Ratio (RBC) 16.9 % Normal 11.5-16.9 [facility] Comment on above: Performed By: #### 5 0103 ####[facility] [facility].[address] Erythrocytes (RBC) 4.18 mill/mm3 Normal 3.50-5.50 [facility] Comment on above: Performed By: #### 5 3 ####[place] [address] [address] Hematocrit (HCT) 38.2 % Normal 36.0-48.0 [facility] Comment on above: Performed By: #### 5 0103 ####[address] Hemoglobin mass conc (Bld) 12.5 g/dL Normal 12.0-15.0 [facility] Comment on above: Performed By: #### 3 ####[place] [address] [facility].[address] Lymphocytes/100 leukocytes 21.4 % Normal 20.0-40.0 [facility] Comment on above: Performed By: #### 5 3 ####[address] MCH 29.9 pg Normal 24.0-32.0 [facility] Comment on above: Performed By: #### 5 3 ####[facility] [facility].[address] MCHC mass conc (RBC) 32.7 g/dL Normal 32.0-36.0 [facility] Comment on above: Performed By: #### 5 0103 ####[facility] MCV 91.4 fL Normal 80.0-100.0 [facility] Comment on above: Performed By: #### 5 0103 ####[facility] [place] [address], [facility] METHOD Normal [facility] Comment on above: Result Comment: Auto mated differential performedNormal RBC Morphology Performed By: #### 5 0103 ####[facility] MONOS 5.2 % Normal 2-8 [facility] Comment on above: Performed By: #### 5 0103 ####[facility] Neutrophils/100 leukocytes 71.6 % High 50-70 [facility] Comment on above: Performed By: #### 5 0103 ####[facility] [place] [address], [facility] PLAT CNT 351 Thou/mm3 Normal 100-400 [facility] Comment on above: Performed By: #### 5 0103 ####[facility] WBC (Leukocytes) 12.0 Thou/mm3 High 4.0-10.0 [facility] Comment on above: Performed By: #### 5 0103 ####[facility] PROTHROMBIN TIMEon 7 INR Coag RelTime (PPP) 0.97 {INR} Normal 0.91-1.16 [facility] Comment on above: Result Comment: ACCC P RECOMMENDED INR FOR WARFARIN THERAPY CONDITION INRPROPHYLAXIS OF VENOUS THROMBOSIS 2-3(HIGH-RISK SURGERY)TREATMENT OF VENOUS THROMBOSIS 2-3TREATMENT OF PULMONARY EMBOLISM 2-3PREVENTION OF SYSTEMIC EMBOLISM: 2-3 ACUTE MYOCARDIAL INFARCTION TISSUE HEART VALVES VALVULAR HEART DISEASE ATRIAL FIBRILLATION RECURRENT SYSTEMIC EMBOLISMMECHANICAL HEART VALVE 2.5-3.5 FROM: ORAL ANTICOAGULANTS. MECHANISM OF ACTION, CLINICALEFFECTIVENESS, AND OPTIMAL THERAPEUTIC RANGE. [id number]. Performed By: #### 5 6101, [address]49 ####[facility] Prothrombin time (PT) Coag time (PPP) 12.9 s Normal 12.3-14.8 [facility] Comment on above: Result Comment: ALL RESULTS MUST BE INTERPRETED WITH RESPECT TO BLOOD DRAWING ARTIFACTOR DILUTION ERROR OF ANTICOAGULANT AT THE TIME OF SAMPLING. Performed By: #### 5 6101, [address]885 ####[facility] [facility].[address] TYPE AND SCREENon 08-25-2016 ABO INTERPRETATION O Normal [facility] Comment on above: Performed By: #### 6 2586 ####[place] [address] [facility].[address] ANTIBODY SCREEN Negative Normal The [facility] Comment on above: Performed By: #### 6 2586 ####[facility] [facility].[address] RH INTERPRETATION Positive Normal [facility] Comment on above: Performed By: #### 6 2586 ####[facility] [place] [address], [facility] URINALYSISon 08-25-2016 Bilirubin (total) Negative Normal NEGATIVE [facility] Comment on above: Performed By: #### 1 0008 ####[facility] [place] [address], [facility] BLOOD MODERATE Abnormal NEGATIVE [facility] Comment on above: Performed By: #### 1 0008 ####[facility] [place] [address], [facility] EPIS MOD Abnormal FEW [facility] Comment on above: Performed By: #### 1 0008 ####[facility] [place] [address], [facility] Erythrocytes (RBC) 3-5 Abnormal 0-0 [facility] Comment on above: Performed By: #### 1 0008 ####[facility] [place] [address], [facility] Glucose mass conc Negative Normal NEGATIVE [facility] Comment on above: Performed By: #### 1 0008 ####[facility] [place] [address], [facility] KETONE Negative Normal NEGATIVE [facility] Comment on above: Performed By: #### 1 0008 ####[facility] [place] [address], [facility] LEUK ZEYNEP TRACE Abnormal NEGATIVE [facility] Comment on above: Performed By: #### 1 0008 ####[facility] [place] [address], [facility] pH of blood 7.0 [pH] Normal 5.0-8.0 The [facility] Comment on above: Performed By: #### 1 0008 ####[facility] [facility].[address] Protein Negative Normal NEGATIVE [facility] Comment on above: Performed By: #### 1 0008 ####[facility] [place] [address], [facility] SPEC GRAV 1.006 Low 1.015-1.020 The [facility] Comment on above: Performed By: #### 1 0008 ####[facility] [place] [address], [facility] Urine, appearance CLEAR Normal CLEAR [facility] Comment on above: Performed By: #### 1 0008 ####[place] [address] [place] [address], [facility] Urine, bacteria in sediment MANY Abnormal NONE SEEN [facility] Comment on above: Performed By: #### 1 0008 ####[facility] [place] [address], [facility] Urine, color STRAW Abnormal YELLOW The [facility] Comment on above: Performed By: #### 1 0008 ####[place] [address] [place] [address], [facility] Urine, nitrite presence Negative Normal NEGATIVE [facility] Comment on above: Performed By: #### 1 0008 ####[address] [place] [address], [facility] WBC UA 11-20 Abnormal 0-0 [facility] Comment on above: Performed By: #### 1 0008 ####[address] Vital Signs Date Time Vital Sign Value Performing Clinician Diego willoughby 11-21-2024 15:59-0400 Body mass index (BMI) [Ratio] 50.66 kg/m2 Pastora Kohler [employer] Work Phone: [facility] 11-21-2024 15:59-0400 Body temperature 97.3 [degF] Pastora Kohler [employer] Work Phone: [facility] 11-21-2024 15:59-0400 Body weight 129.73 kg Pastora Kohler [employer] Work Phone: [facility] 11-21-2024 15:59-0400 Diastolic blood pressure 92 mm[Hg] Pastora Kohler [employer] Work Phone: [facility] 11-21-2024 15:59-0400 Heart rate 86 /min Pastora Kohler [employer] Work Phone: [facility] 11-21-2024 15:59-0400 SaO2% (BldA) [Mass fraction] 99 % Pastora Kohler [employer] Work Phone: [facility] 11-21-2024 15:59-0400 Systolic blood pressure 144 mm[Hg] Pastora Kohler [employer] Work Phone: [facility] 11-18-2024 10:54-0400 Body height 160.02 cm Pastora Kohler [employer] Work Phone: [facility] 11-18-2024 10:54-0400 Body mass index (BMI) [Ratio] 51.1 kg/m2 Pastora Kohler [employer] Work Phone: [facility] 11-18-2024 10:54-0400 Body weight 131 kg Pastora Kohler [employer] Work Phone: [facility] 11-18-2024 10:54-0400 Diastolic blood pressure 64 mm[Hg] Pastora Kohler [employer] Work Phone: [facility] 11-18-2024 10:54-0400 Heart rate 74 /min Pastora Kohler [employer] Work Phone: [facility] 11-18-2024 10:54-0400 Respiratory rate 18 /min Pastora Kohler [employer] Work Phone: [facility] 11-18-2024 10:54-0400 SaO2% (BldA) [Mass fraction] 96 % Pastora Jose F [employer] Work Phone: [facility] 11-18-2024 10:54-0400 Systolic blood pressure 134 mm[Hg] Pastora Jose F [employer] Work Phone: [facility] 11-17-2024 10:49-0400 Body height 160 cm Jennifer Cabrera MD Work Phone: [facility] 11-17-2024 10:49-0400 Body mass index (BMI) [Ratio] 52.08 kg/m2 Jennifer Cabrera MD Work Phone: [facility] 11-17-2024 10:49-0400 Body temperature 98.6 [degF] Jennifer Cabrera MD Work Phone: [facility] 11-17-2024 10:49-0400 Body weight 133.36 kg Jennifer Cabrera MD Work Phone: [facility] 11-17-2024 10:49-0400 Diastolic blood pressure 74 mm[Hg] Jennifer Cabrera MD Work Phone: [facility] 11-17-2024 10:49-0400 Heart rate 82 /min Jennifer Cabrera MD Work Phone: [facility] 11-17-2024 10:49-0400 SaO2% (BldA) [Mass fraction] 94 % Jennifer Cabrera MD Work Phone: [facility] 11-17-2024 10:49-0400 Systolic blood pressure 126 mm[Hg] Jennifer Cabrera MD Work Phone: [facility] 09-23-2024 15:25-0400 Body mass index (BMI) [Ratio] 50.84 kg/m2 Lalitha Trujillo NP Work Phone: [facility] 09-23-2024 15:25-0400 Body weight 130.18 kg Lalitha Trujillo [employer] Work Phone: [facility] 09-23-2024 15:25-0400 Diastolic blood pressure 74 mm[Hg] Lalitha Trujillo [employer] Work Phone: [facility] 09-23-2024 15:25-0400 Heart rate 87 /min Lalitha Trujillo [employer] Work Phone: [facility] 09-23-2024 15:25-0400 SaO2% (BldA) [Mass fraction] 95 % Lalitha Trujillo [employer] Work Phone: [facility] 09-23-2024 15:25-0400 Systolic blood pressure 138 mm[Hg] Lalitha Trujillo [employer] Work Phone: [facility] 09-14-2024 14:08-0400 Body height 160 cm Lalitha Trujillo [employer] Work Phone: [facility] 09-14-2024 14:08-0400 Body mass index (BMI) [Ratio] 51.02 kg/m2 Lalitha Trujillo [employer] Work Phone: [facility] 09-14-2024 14:08-0400 Body weight 130.64 kg Lalitha Trujillo [employer] Work Phone: [facility] 09-14-2024 14:08-0400 Diastolic blood pressure 74 mm[Hg] Lalitha Trujillo [employer] Work Phone: [facility] 09-14-2024 14:08-0400 Heart rate 78 /min Lalitha Trujillo [employer] Work Phone: [facility] 09-14-2024 14:08-0400 Respiratory rate 18 /min Lalitha Trujillo [employer] Work Phone: [facility] 09-14-2024 14:08-0400 SaO2% (BldA) [Mass fraction] 98 % Lalitha Trujillo [employer] Work Phone: [facility] 09-14-2024 14:08-0400 Systolic blood pressure 128 mm[Hg] Lalitha Trujillo [employer] Work Phone: [facility] 08-30-2024 12:31-0400 Body mass index (BMI) [Ratio] 50.95 kg/m2 Lalitha Trujillo [employer] Work Phone: [facility] 08-30-2024 12:31-0400 Body temperature 97.3 [degF] Lalitha Trujillo [employer] Work Phone: [facility] 08-30-2024 12:31-0400 Body weight 130.46 kg Lalitha Trujillo [employer] Work Phone: [facility] 08-30-2024 12:31-0400 Diastolic blood pressure 78 mm[Hg] Lalitha Trujillo [employer] Work Phone: [facility] 08-30-2024 12:31-0400 Heart rate 84 /min Lalitha Trujillo [employer] Work Phone: [facility] 08-30-2024 12:31-0400 SaO2% (BldA) [Mass fraction] 94 % Lalitha Trujillo [employer] Work Phone: [facility] 08-30-2024 12:31-0400 Systolic blood pressure 138 mm[Hg] Lalitha Trujillo [employer] Work Phone: [facility] 08-02-2024 09:04-0400 Body mass index (BMI) [Ratio] 51.37 kg/m2 Pastora Jose F [employer] Work Phone: [facility] 08-02-2024 09:04-0400 Body temperature 97.3 [degF] Pastora Ackermank [employer] Work Phone: [facility] 08-02-2024 09:04-0400 Body weight 131.54 kg Pastora Kohler [employer] Work Phone: [facility] 08-02-2024 09:04-0400 Diastolic blood pressure 92 mm[Hg] Pastora Mejíazpatrick [employer] Work Phone: [facility] 08-02-2024 09:04-0400 Systolic blood pressure 164 mm[Hg] Pastora Mejíazpatrick [employer] Work Phone: [facility] 06-14-2024 10:35-0400 Diastolic blood pressure 90 mm[Hg] Jennifer Cabrera MD Work Phone: [facility] 06-14-2024 10:35-0400 Systolic blood pressure 136 mm[Hg] Jennifer Cabrera MD Work Phone: [facility] 06-14-2024 09:51-0400 Body height 160 cm Jennifer Cabrera MD Work Phone: [facility] 06-14-2024 09:51-0400 Body mass index (BMI) [Ratio] 51.26 kg/m2 Jennifer Cabrera MD Work Phone: [facility] 06-14-2024 09:51-0400 Body weight 131.27 kg Jennifer Cabrera MD Work Phone: [facility] 06-14-2024 09:51-0400 Heart rate 91 /min Jennifer Cabrera MD Work Phone: [facility] 06-14-2024 09:51-0400 SaO2% (BldA) [Mass fraction] 94 % Jennifer Cabrera MD Work Phone: [facility] 06-10-2024 11:30-0400 Body mass index (BMI) [Ratio] 49.81 kg/m2 Lalitha Trujillo [employer] Work Phone: [facility] 06-10-2024 11:30-0400 Body temperature 98.1 [degF] Lalitha Trujillo [employer] Work Phone: [facility] 06-10-2024 11:30-0400 Body weight 127.55 kg Lalitha Trujillo [employer] Work Phone: [facility] 06-10-2024 11:30-0400 Diastolic blood pressure 86 mm[Hg] Lalitha Trujillo [employer] Work Phone: [facility] 06-10-2024 11:30-0400 Heart rate 85 /min Lalitha Trujillo [employer] Work Phone: [facility] 06-10-2024 11:30-0400 SaO2% (BldA) [Mass fraction] 97 % Lalitha Trujillo [employer] Work Phone: [facility] 06-10-2024 11:30-0400 Systolic blood pressure 128 mm[Hg] Lalitha Trujillo [employer] Work Phone: [facility] 05-31-2024 14:38-0400 Body height 160 cm Lauren Torres PA Work Phone: [facility] 05-31-2024 14:38-0400 Body mass index (BMI) [Ratio] 51.19 kg/m2 Lauren Torres PA Work Phone: [facility] 05-31-2024 14:38-0400 Body weight 131.09 kg Lauren Torres PA Work Phone: [facility] 05-25-2024 09:57-0400 Body height 160.02 cm Pastora Obrientrick [employer] Work Phone: [facility] 05-25-2024 09:57-0400 Body mass index (BMI) [Ratio] 51.1 kg/m2 Pastora Kohler [employer] Work Phone: [facility] 05-25-2024 09:57-0400 Body weight 130.9 kg Pastora Kohler [employer] Work Phone: [facility] 05-25-2024 09:57-0400 Diastolic blood pressure 93 mm[Hg] Pastora Kohler [employer] Work Phone: [facility] 05-25-2024 09:57-0400 Heart rate 78 /min Pastora Kohler [employer] Work Phone: [facility] 05-25-2024 09:57-0400 Respiratory rate 20 /min Pastora Kohler [employer] Work Phone: [facility] 05-25-2024 09:57-0400 SaO2% (BldA) [Mass fraction] 98 % Pastora Kohler [employer] Work Phone: [facility] 05-25-2024 09:57-0400 Systolic blood pressure 144 mm[Hg] Pastora Ackermank [employer] Work Phone: [facility] 05-23-2024 13:38-0400 Body height 157.5 cm Blane Pino DPM Work Phone: [facility] 05-23-2024 13:38-0400 Body mass index (BMI) [Ratio] 53.04 kg/m2 Blane Pino DPM Work Phone: [facility] 05-23-2024 13:38-0400 Body weight 131.54 kg Blane Pino DPM Work Phone: [facility] 04-12-2024 10:47-0500 Body mass index (BMI) [Ratio] 54.5 kg/m2 Alexandra Osorio [employer] Work Phone: [facility] 04-12-2024 10:47-0500 Body temperature 96.21 [degF] Alexandra Tylerwernerburg [employer] Work Phone: [facility] 04-12-2024 10:47-0500 Body weight 135.17 kg Alexandra Scottwernerburg [employer] Work Phone: [facility] 04-12-2024 10:47-0500 Diastolic blood pressure 90 mm[Hg] Alexandra Cruzburg [employer] Work Phone: [facility] 04-12-2024 10:47-0500 Heart rate 82 /min Alexandra Anthonyburg [employer] Work Phone: [facility] 04-12-2024 10:47-0500 SaO2% (BldA) [Mass fraction] 92 % Alexandraalex Cruzburg [employer] Work Phone: [facility] 04-12-2024 10:47-0500 Systolic blood pressure 136 mm[Hg] Alexandra Hagallitoenburg [employer] Work Phone: [facility] 03-05-2024 08:53-0500 Body height 157.5 cm Laexandra Hackenburg [employer] Work Phone: [facility] 03-05-2024 08:53-0500 Body mass index (BMI) [Ratio] 52.13 kg/m2 Alexandra Hackenburg [employer] Work Phone: [facility] 03-05-2024 08:53-0500 Body weight 129.28 kg Alexandra Hackenburg [employer] Work Phone: [facility] 03-05-2024 08:53-0500 Diastolic blood pressure 78 mm[Hg] Alexandra Hackenburg [employer] Work Phone: [facility] 03-05-2024 08:53-0500 Heart rate 94 /min Alexandra Hackenburg [employer] Work Phone: [facility] 03-05-2024 08:53-0500 Respiratory rate 18 /min Alexandra Hagallitoenburg [employer] Work Phone: [facility] 03-05-2024 08:53-0500 SaO2% (BldA) [Mass fraction] 94 % Alexandra Hackenburg [employer] Work Phone: [facility] 03-05-2024 08:53-0500 Systolic blood pressure 124 mm[Hg] Alexandra Hackenburg [employer] Work Phone: [facility] 02-29-2024 16:22-0500 Body height 157.5 cm Alexandra Hackenburg [employer] Work Phone: [facility] 02-29-2024 16:22-0500 Body mass index (BMI) [Ratio] 52.49 kg/m2 Alexandra Hackenburg [employer] Work Phone: [facility] 02-29-2024 16:22-0500 Body weight 130.18 kg Alexandra Hackenburg [employer] Work Phone: [facility] 02-29-2024 16:22-0500 Diastolic blood pressure 82 mm[Hg] Alexandra Hackenburg [employer] Work Phone: [facility] 02-29-2024 16:22-0500 Heart rate 78 /min Alexandra Osorio [employer] Work Phone: [facility] 02-29-2024 16:22-0500 Respiratory rate 18 /min Alexandra Osorio [employer] Work Phone: [facility] 02-29-2024 16:22-0500 SaO2% (BldA) [Mass fraction] 95 % Alexandra Osorio [employer] Work Phone: [facility] 02-29-2024 16:22-0500 Systolic blood pressure 130 mm[Hg] Alexandra Osorio [employer] Work Phone: [facility] 01-19-2024 11:23-0500 Body height 157.5 cm Pastora Velardepatrick [employer] Work Phone: [facility] 01-19-2024 11:23-0500 Body mass index (BMI) [Ratio] 51.18 kg/m2 Pastora Velardepatrick [employer] Work Phone: [facility] 01-19-2024 11:23-0500 Body temperature 97.81 [degF] Pastora Velardepatrick [employer] Work Phone: [facility] 01-19-2024 11:23-0500 Body weight 126.92 kg Pastora Velardepatrick [employer] Work Phone: [facility] 01-19-2024 11:23-0500 Diastolic blood pressure 86 mm[Hg] Pastora Kohler [employer] Work Phone: [facility] 01-19-2024 11:23-0500 Heart rate 100 /min Pastora Velardepatrick [employer] Work Phone: [facility] 01-19-2024 11:23-0500 SaO2% (BldA) [Mass fraction] 97 % Pastora Mejíazpatrick [employer] Work Phone: [facility] 01-19-2024 11:23-0500 Systolic blood pressure 150 mm[Hg] Pastora Kohler NP Work Phone: [facility] 12-30-2023 09:56-0500 Body mass index (BMI) [Ratio] 50.5 kg/m2 [facility] 12-30-2023 09:56-0500 Diastolic blood pressure 94 mm[Hg] [facility] 12-30-2023 09:56-0500 Heart rate 86 /min [facility] 12-30-2023 09:56-0500 Respiratory rate 18 /min [facility] 12-30-2023 09:56-0500 SaO2% (BldA) [Mass fraction] 100 % [facility] 12-30-2023 09:56-0500 Systolic blood pressure 136 mm[Hg] [facility] 12-30-2023 09:45-0500 Body height 160.02 cm [facility] 12-30-2023 09:45-0500 Body weight 129.35 kg [facility] 09-23-2023 14:28-0400 Body height 160.02 cm [facility] 09-23-2023 14:28-0400 Body mass index (BMI) [Ratio] 48.6 kg/m2 [facility] 09-23-2023 14:28-0400 Body weight 124.51 kg [facility] 09-23-2023 14:28-0400 Diastolic blood pressure 69 mm[Hg] [facility] 09-23-2023 14:28-0400 Heart rate 82 /min [facility] 09-23-2023 14:28-0400 Respiratory rate 20 /min [facility] 09-23-2023 14:28-0400 SaO2% (BldA) [Mass fraction] 95 % [facility] 09-23-2023 14:28-0400 Systolic blood pressure 104 mm[Hg] [facility] 06-30-2023 14:45-0400 Diastolic blood pressure 87 mm[Hg] Piotr Logan MD Work Phone: [facility] 06-30-2023 14:45-0400 Heart rate 78 /min Piotr Logan MD Work Phone: [facility] 06-30-2023 14:45-0400 Respiratory rate 16 /min Piotr Logan MD Work Phone: [facility] 06-30-2023 14:45-0400 SaO2% (BldA) [Mass fraction] 97 % Piotr Logan MD Work [facility]: [facility] 06-30-2023 14:45-0400 Systolic blood pressure 133 mm[Hg] Piotr Logan MD Work Phone: [facility] 06-30-2023 12:35-0400 Body temperature 96.21 [degF] Piotr Logan MD Work Phone: [facility] 06-30-2023 11:05-0400 Body height 157.5 cm Piotr Logan MD Work Phone: [facility] 06-30-2023 11:05-0400 Body mass index (BMI) [Ratio] 52.61 kg/m2 Piotr Logan MD Work Phone: [facility] 06-30-2023 11:05-0400 Body weight 130.5 kg Piotr Logan MD Work Phone: [facility] 06-03-2023 10:04-0400 Body height 160 cm Edwin Moreno MD Work Phone: [facility] 06-03-2023 10:04-0400 Body mass index (BMI) [Ratio] 50.38 kg/m2 Edwin Moreno MD Work Phone: [facility] 06-03-2023 10:04-0400 Body temperature 97.59 [degF] Edwin Moreno MD Work Phone: [facility] 06-03-2023 10:04-0400 Body weight 129 kg Edwin Moreno MD Work Phone: [facility] 06-03-2023 10:04-0400 Diastolic blood pressure 98 mm[Hg] Edwin Moreno MD Work Phone: [facility] 06-03-2023 10:04-0400 Heart rate 90 /min Edwin Moreno MD Work Phone: [facility] 06-03-2023 10:04-0400 SaO2% (BldA) [Mass fraction] 97 % Edwin Moreno MD Work Phone: [facility] 06-03-2023 10:04-0400 Systolic blood pressure 154 mm[Hg] Edwin Moreno MD Work Phone: [facility] 05-11-2023 11:54-0400 Body height 160.02 cm [facility] 05-11-2023 11:54-0400 Body mass index (BMI) [Ratio] 51.5 kg/m2 [facility] 05-11-2023 11:54-0400 Body weight 132.05 kg [facility] 05-11-2023 11:54-0400 Diastolic blood pressure 83 mm[Hg] [facility] 05-11-2023 11:54-0400 Heart rate 74 /min [facility] 05-11-2023 11:54-0400 Respiratory rate 20 /min [facility] 05-11-2023 11:54-0400 SaO2% (BldA) [Mass fraction] 98 % [facility] 05-11-2023 11:54-0400 Systolic blood pressure 139 mm[Hg] [facility] 04-07-2023 09:09-0500 Body height 160.02 cm DO Kalie Rumschlag Work Phone: [facility] 04-07-2023 09:09-0500 Body mass index (BMI) [Ratio] 52.6 kg/m2 DO Kalie Rumschlag Work Phone: [facility] 04-07-2023 09:09-0500 Body weight 134.83 kg DO Kalie Rumschlag Work Phone: [facility] 04-07-2023 09:09-0500 Diastolic blood pressure 82 mm[Hg] DO Kalie Rumschlag Work Phone: [facility] 04-07-2023 09:09-0500 Heart rate 80 /min DO Kalie Rumschlag Work Phone: [facility] 04-07-2023 09:09-0500 Respiratory rate 20 /min DO Kalie Rumschlag Work Phone: [facility] 04-07-2023 09:09-0500 SaO2% (BldA) [Mass fraction] 93 % DO Kalie Rumschlag Work Phone: [facility] 04-07-2023 09:09-0500 Systolic blood pressure 130 mm[Hg] DO Kalie Rumschlag Work Phone: [facility] 02-03-2023 08:45-0500 Body height 160.02 cm Lili Scally Other [facility] 02-03-2023 08:45-0500 Body mass index (BMI) [Ratio] 52.61 kg/m2 Lili Scally Other [email or web address] Other 02-03-2023 08:45-0500 Body weight 134.72 kg Lili Scally Other [email or web address] Other 02-03-2023 08:45-0500 Body weight 134.71 kg DO Kalie Rumschlag Work Phone: [facility] 02-03-2023 08:45-0500 Diastolic blood pressure Lili Scally Other [email or web address] Other 02-03-2023 08:45-0500 Respiratory rate 20 /min Lili Scally Other [email or web address] Other 02-03-2023 08:45-0500 SaO2% (BldA) [Mass fraction] 94 % Lili Scally Other [email or web address] Other 02-03-2023 08:45-0500 Systolic blood pressure 144 mm[Hg] Lili Scally Other [email or web address] Other 11-26-2022 09:45-0400 Body height 160.02 cm Lili Scally Other [email or web address] Other 11-26-2022 09:45-0400 Body mass index (BMI) [Ratio] 51.37 kg/m2 Lili Scally Other [email or web address] Other 11-26-2022 09:45-0400 Body weight 131.54 kg Lili Scally Other [email or web address] Other 11-26-2022 09:45-0400 Diastolic blood pressure Lili Scally Other [email or web address] Other 11-26-2022 09:45-0400 Respiratory rate 20 /min Lili Scally Other [email or web address] Other 11-26-2022 09:45-0400 SaO2% (BldA) [Mass fraction] 96 % Lili Scally Other [email or web address] Other 11-26-2022 09:45-0400 Systolic blood pressure 124 mm[Hg] Lili Scally Other [email or web address] Other 11-25-2022 09:20-0400 Body height 160.02 cm Stoney Turner Other [email or web address] Other 11-25-2022 09:20-0400 Body mass index (BMI) [Ratio] 52.07 kg/m2 Stoney Turner Other [email or web address] Other 11-25-2022 09:20-0400 Body weight 133.36 kg Stoney Turner Other [email or web address] Other 10-30-2022 11:18-0400 Diastolic blood pressure 81 mm[Hg] DO Judith Amanda Work Phone: [facility] 10-30-2022 11:18-0400 Heart rate 94 /min DO Judith Amanda Work Phone: [facility] 10-30-2022 11:18-0400 Respiratory rate 18 /min DO Judith Amanda Work Phone: [facility] 10-30-2022 11:18-0400 SaO2% (BldA) [Mass fraction] 96 % DO Judith Amanda Work Phone: [facility] 10-30-2022 11:18-0400 Systolic blood pressure 159 mm[Hg] DO Judith Amanda Work Phone: [facility] 10-30-2022 09:52-0400 Body height 160.02 cm DO Judith Amanda Work Phone: [facility] 10-30-2022 09:52-0400 Body weight 126.55 kg DO Judith Amanda Work Phone: [facility] 10-09-2022 10:40-0400 Body height 160.02 cm Martine Tobias Other [email or web address] Other 10-09-2022 10:40-0400 Body mass index (BMI) [Ratio] 52.07 kg/m2 Martine Tobias Other [email or web address] Other 10-09-2022 10:40-0400 Body weight 133.36 kg Martine Tobias Other [email or web address] Other 10-09-2022 10:40-0400 Diastolic blood pressure 88 mm[Hg] Martine Tobias Other [email or web address] Other 10-09-2022 10:40-0400 Systolic blood pressure 154 mm[Hg] Martine Tobias Other [email or web address] Other 10-03-2022 09:15-0400 Body height 160.02 cm Lili Scally Other [email or web address] Other 10-03-2022 09:15-0400 Body mass index (BMI) [Ratio] 52.09 kg/m2 Lili Scally Other [email or web address] Other 10-03-2022 09:15-0400 Body weight 133.4 kg Lili Scally Other [email or web address] Other 10-03-2022 09:15-0400 Diastolic blood pressure 88 mm[Hg] Lili Scally Other [email or web address] Other 10-03-2022 09:15-0400 Respiratory rate 20 /min Lili Scally Other [email or web address] Other 10-03-2022 09:15-0400 SaO2% (BldA) [Mass fraction] 65 % Lili Scally Other [email or web address] Other 10-03-2022 09:15-0400 Systolic blood pressure 143 mm[Hg] Lili Scally Other [email or web address] Other 09-19-2022 13:49-0400 Diastolic blood pressure 109 mm[Hg] DO Kalie Rumschlag Work Phone: [facility] 09-19-2022 13:49-0400 Heart rate 94 /min DO Kalie Rumschlag Work Phone: [facility] 09-19-2022 13:49-0400 Respiratory rate 20 /min DO Kalie Rumschlag Work Phone: [facility] 09-19-2022 13:49-0400 SaO2% (BldA) [Mass fraction] 96 % DO Kalie Rumschlag Work Phone: [facility] 09-19-2022 13:49-0400 Systolic blood pressure 209 mm[Hg] DO Kalie Rumschlag Work Phone: [facility] 09-19-2022 13:42-0400 Body height 162.56 cm DO Kalie Rumschlag Work Phone: [facility] 09-19-2022 13:42-0400 Body weight 124.73 kg DO Kalie Rumschlag Work Phone: [facility] 08-12-2022 09:40-0400 Body height 160.02 cm Martine Tobias Other [email or web address] Other 08-12-2022 09:40-0400 Body mass index (BMI) [Ratio] 50.62 kg/m2 Martine Tobias Other [email or web address] Other 08-12-2022 09:40-0400 Body weight 129.64 kg Martine Tobias Other [email or web address] Other 08-12-2022 09:40-0400 Diastolic blood pressure 86 mm[Hg] Martine Tobias Other [email or web address] Other 08-12-2022 09:40-0400 Systolic blood pressure 150 mm[Hg] Martine Tobias Other [email or web address] Other 08-01-2022 09:15-0400 Body height 160.02 cm Lili Scally Other [email or web address] Other 08-01-2022 09:15-0400 Body mass index (BMI) [Ratio] 50.62 kg/m2 Lili Scally Other [email or web address] Other 08-01-2022 09:15-0400 Body weight 129.64 kg Lili Scally Other [email or web address] Other 08-01-2022 09:15-0400 Diastolic blood pressure 84 mm[Hg] Lili Scally Other [email or web address] Other 08-01-2022 09:15-0400 Respiratory rate 18 /min Lili Scally Other [email or web address] Other 08-01-2022 09:15-0400 SaO2% (BldA) [Mass fraction] 95 % Lili Scally Other [email or web address] Other 08-01-2022 09:15-0400 Systolic blood pressure 130 mm[Hg] Lili Scally Other [email or web address] Other 06-06-2022 10:45-0400 Body height 160.02 cm Lili Scally Other [email or web address] Other 06-06-2022 10:45-0400 Body mass index (BMI) [Ratio] 50.43 kg/m2 Lili Scally Other [email or web address] Other 06-06-2022 10:45-0400 Body weight 129.14 kg Lili Scally Other [email or web address] Other 06-06-2022 10:45-0400 Diastolic blood pressure 76 mm[Hg] Lili Scally Other [email or web address] Other 06-06-2022 10:45-0400 Respiratory rate 18 /min Lili Scally Other [email or web address] Other 06-06-2022 10:45-0400 SaO2% (BldA) [Mass fraction] 96 % Lili Scally Other [email or web address] Other 06-06-2022 10:45-0400 Systolic blood pressure 131 mm[Hg] Lili Scally Other [email or web address] Other 03-06-2022 14:45-0500 Body height 160.02 cm Lili Scally Other [email or web address] Other 03-06-2022 14:45-0500 Body mass index (BMI) [Ratio] 46.81 kg/m2 Lili Scally Other [email or web address] Other 03-06-2022 14:45-0500 Body weight 119.89 kg Lili Scally Other [email or web address] Other 03-06-2022 14:45-0500 Diastolic blood pressure 72 mm[Hg] Lili Scally Other [email or web address] Other 03-06-2022 14:45-0500 Respiratory rate 18 /min Lili Scally Other [email or web address] Other 03-06-2022 14:45-0500 SaO2% (BldA) [Mass fraction] 96 % Lili Scally Other [email or web address] Other 03-06-2022 14:45-0500 Systolic blood pressure 112 mm[Hg] Lili Scally Other [email or web address] Other 10-28-2021 11:15-0400 Body height 160.02 cm Lili Scally Other [email or web address] Other 10-28-2021 11:15-0400 Body mass index (BMI) [Ratio] 45.49 kg/m2 Lili Scally Other [email or web address] Other 10-28-2021 11:15-0400 Body weight 116.48 kg Lili Scally Other [email or web address] Other 10-28-2021 11:15-0400 Diastolic blood pressure 83 mm[Hg] Lili Scally Other [email or web address] Other 10-28-2021 11:15-0400 Respiratory rate 18 /min Lili Scally Other [email or web address] Other 10-28-2021 11:15-0400 SaO2% (BldA) [Mass fraction] 97 % Lili Scally Other [email or web address] Other 10-28-2021 11:15-0400 Systolic blood pressure 133 mm[Hg] Lili Scally Other [email or web address] Other 07-04-2021 09:15-0400 Body height 160.02 cm Lili Scally Other [email or web address] Other 07-04-2021 09:15-0400 Body mass index (BMI) [Ratio] 45.79 kg/m2 Lili Scally Other [email or web address] Other 07-04-2021 09:15-0400 Body weight 117.26 kg Lili Scally Other [email or web address] Other 07-04-2021 09:15-0400 Diastolic blood pressure 83 mm[Hg] Lili Scally Other [email or web address] Other 07-04-2021 09:15-0400 Respiratory rate 18 /min Lili Scally Other [email or web address] Other 07-04-2021 09:15-0400 SaO2% (BldA) [Mass fraction] 96 % Lili Scally Other [email or web address] Other 07-04-2021 09:15-0400 Systolic blood pressure 125 mm[Hg] Lili Scally Other [email or web address] Other 11-21-2020 10:30-0400 Body height 160.02 cm Clifford Munoz Jr. Other [email or web address] Other 11-21-2020 10:30-0400 Body mass index (BMI) [Ratio] 46.97 kg/m2 Clifford Munoz Jr. Other [email or web address] Other 11-21-2020 10:30-0400 Body weight 120.29 kg Clifford Munoz Jr. Other [email or web address] Other 11-21-2020 10:30-0400 Diastolic blood pressure 76 mm[Hg] Clifford Munoz Jr. Other [email or web address] Other 11-21-2020 10:30-0400 Respiratory rate 18 /min Cliffordronnei Munoz Jr. Other [email or web address] Other 11-21-2020 10:30-0400 SaO2% (BldA) [Mass fraction] 97 % Clifford Munoz Jr. Other [email or web address] Other 11-21-2020 10:30-0400 Systolic blood pressure 123 mm[Hg] Clifford Munoz Jr. Other [email or web address] Other Encounters Encounter Date Encounter Type Care Provider Facility Start: 11-22-2024 End: 11-22-2024 Telephone encounter Jennifer Cabrera MD Work Phone: [facility] Start: 11-21-2024 End: 11-21-2024 ambulatory PASTORA ACKERMANK Not Available Start: 11-21-2024 End: 11-21-2024 Office outpatient visit 25 minutes Pastora Kohler [employer] Work Phone: [facility] Comment on above: Need for vaccination (Primary Dx); Pain of left femur Start: 11-21-2024 End: 11-21-2024 ambulatory PASTORA ACKERMANK Not Available Start: 11-21-2024 End: 11-21-2024 Bamboo flowsheet Pastora Kohler [employer] Work Phone: [facility] Start: 11-21-2024 End: 11-21-2024 Bamboo flowsheet Pastora Ackermank [employer] Work Phone: [facility] Start: 11-19-2024 End: 11-19-2024 Telephone encounter Jennifer Cabrera MD Work Phone: [facility] Start: 11-18-2024 End: 11-18-2024 ambulatory Pastora Kohler [employer] Work Phone: [facility] Work Phone: Start: 11-18-2024 End: 11-18-2024 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 procedure Lili Burgos [facility] Work Phone: Start: 11-17-2024 End: 11-17-2024 Bamboo flowsheet Jennifer Cabrera MD Work Phone: [facility] Start: 11-17-2024 End: 11-17-2024 Bamboo flowsheet Jennifer Cabrera MD Work Phone: [facility] Start: 11-17-2024 End: 11-17-2024 ambulatory JENNIFER CABRERA Not Available Start: 11-17-2024 End: 11-17-2024 Office outpatient visit 15 minutes Jennifer Cabrera MD Work Phone: [facility] Comment on above: Sore throat Start: 11-16-2024 End: 11-16-2024 ambulatory [facility] Start: 10-31-2024 End: 10-31-2024 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 procedure Shama Allen [employer] Work Phone: Start: 10-31-2024 End: 10-31-2024 ambulatory Pastora Kohler [employer] Work Phone: [facility] Work Phone: Start: 09-23-2024 End: 09-23-2024 Office outpatient visit 15 minutes Lalitha Trujillo NP Work Phone: [facility] Comment on above: Acute left-sided low back pain with left-sided sciatica (Primary Dx) Start: 09-23-2024 End: 09-23-2024 ambulatory LALITHA TRUJILLO Not Available Start: 09-23-2024 End: 09-23-2024 Bamboo flowsheet Lalitha Trujillo [employer] Work Phone: [facility] Start: 09-23-2024 End: 09-23-2024 Bamboo flowsheet Lalitha Trujillo [employer] Work Phone: [facility] Start: 09-14-2024 End: 09-14-2024 ambulatory LALITHA TRUJILLO Not Available Start: 09-14-2024 End: 09-14-2024 Bamboo flowsheet Lalitha Trujillo [employer] Work Phone: [facility] Start: 09-14-2024 End: 09-14-2024 Bamboo flowsheet Lalitha Trujillo [employer] Work Phone: [facility] Start: 09-14-2024 End: 09-14-2024 Office outpatient visit 15 minutes Lalitha Trujillo [employer] Work Phone: [facility] Comment on above: Left leg cellulitis (Primary Dx) Start: 09-07-2024 End: 09-07-2024 Emergency department patient visit CANDI VYAS [facility] Start: 08-30-2024 End: 08-30-2024 Bamboo flowsheet Lalitha Trujillo [employer] Work Phone: [facility] Start: 08-30-2024 End: 08-30-2024 Bamboo flowsheet Lalitha Trujillo [employer] Work Phone: [facility] Start: 08-30-2024 End: 08-30-2024 ambulatory LALITHA TRUJILLO Not Available Start: 08-30-2024 End: 08-30-2024 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 procedure Lalitha Trujillo [employer] Work Phone: [facility] Comment on [...] major depressive disorder, in partial remission ; FDC (current) use of insulin (HCC); Chronic kidney disease, stage 2 (mild); Chronic pain disorder Start: 08-30-2024 End: 08-30-2024 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 status Lalitha Trujillo [employer] Work Phone: [facility] Work Phone: Start: 08-30-2024 Non-patient / Non-visit Kaya quinn RN -[facility] Work Phone: Start: 08-24-2024 End: 08-24-2024 Bamboo flowsheet Lauren HILL Work Phone: [facility] Start: 08-24-2024 End: 08-24-2024 Bamboo flowsheet Lauren HILL Work Phone: [facility] Start: 08-24-2024 End: 08-24-2024 Postop follow up visit related to original px Lauren HILL Work Phone: [facility] Comment on above: S/P arthroscopy of r ight shoulder (Primary Dx) Start: 08-24-2024 End: 08-24-2024 ambulatory LAUREN TORRES Not Available Start: 08-02-2024 End: 08-02-2024 Bamboo flowsheet Pastora Kohler [employer] Work Phone: [facility] Start: 08-02-2024 End: 08-02-2024 Bamboo flowsheet Pastora Kohler [employer] Work Phone: [facility] Start: 08-02-2024 End: 08-02-2024 Office outpatient visit 25 minutes Pastora Kohler [employer] Work Phone: [facility] Comment on above: Acute pain of right shoulder (Primary Dx); Acute pain of right knee; Primary hypertension Start: 08-02-2024 End: 08-02-2024 ambulatory PASTORA KOHLER Not Available Start: 08-01-2024 End: 08-02-2024 Telephone encounter Lauren Torres PA Work Phone: [facility] Start: 07-20-2024 End: 07-20-2024 Bamboo flowsheet Lauren Torres PA Work Phone: [facility] Start: 07-20-2024 End: 07-20-2024 Bamboo flowsheet Lauren Torres PA Work Phone: [facility] Start: 07-20-2024 End: 07-20-2024 Postop follow up visit related to original px Lauren Torres PA Work Phone: [facility] Comment on above: S/P arthroscopy of r ight shoulder (Primary Dx) Start: 07-20-2024 End: 07-20-2024 ambulatory LAUREN TORRES Not Available Start: 07-01-2024 End: 07-01-2024 Bamboo flowsheet Lauren Torres PA Work Phone: [facility] Start: 07-01-2024 End: 07-01-2024 Bamboo flowsheet Lauren Torres PA Work Phone: [facility] Start: 07-01-2024 End: 07-01-2024 Postop follow up visit related to original px Lauren HILL Work Phone: [facility] Comment on above: S/P arthroscopy of r ight shoulder (Primary Dx) Start: 07-01-2024 End: 07-01-2024 ambulatory LAUREN TORRES Not Available Start: 06-21-2024 End: 06-21-2024 Bamboo flowsheet Lauren Torres PA Work Phone: [facility] Start: 06-21-2024 End: 06-21-2024 Bamboo flowsheet Lauren Torres PA Work Phone: [facility] Start: 06-21-2024 End: 06-21-2024 ambulatory LAUREN TORRES Not Available Start: 06-21-2024 End: 06-21-2024 Postop follow up visit related to original px Lauren Torres PA Work Phone: [facility] Comment on above: S/P arthroscopy of r ight shoulder (Primary Dx) Start: 06-17-2024 End: 06-17-2024 ambulatory [facility] Facility:[facility] Start: 06-16-2024 End: 06-17-2024 Refill Pastora Kohler [employer] Work Phone: [facility] Comment on [...] Preoperative state Jennifer Cabrera MD Work Phone: [facility] Start: 06-14-2024 End: 06-14-2024 ambulatory JENNIFER CABRERA Not Available Start: 06-10-2024 End: 06-10-2024 Bamboo flowsheet Lalitha Trujillo [employer] Work Phone: [facility] Start: 06-10-2024 End: 06-10-2024 Bamboo flowsheet Lalitha Trujillo [employer] Work Phone: [facility] Start: 06-10-2024 End: 06-10-2024 Office outpatient visit 15 minutes Lalitha Trujillo [employer] Work Phone: [facility] Comment on above: Acute laryngitis (Pr imary Dx) Start: 06-10-2024 End: 06-10-2024 ambulatory LALITHA TRUJILLO Not Available Start: 06-08-2024 End: 06-08-2024 ambulatory AKANKSHA SANFORD [facility] Start: 06-01-2024 End: 06-01-2024 ambulatory [facility] Facility:[facility] Start: 05-31-2024 End: 05-31-2024 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 procedure Lauren HILL Work Phone: [facility] Comment on above: Pre-op examination ( Primary Dx) Start: 05-31-2024 End: 05-31-2024 Preprocedural examination done Lauren HILL Work Phone: [facility] Work Phone: Start: 05-31-2024 End: 05-31-2024 ambulatory LAUREN TORRES Not Available Start: 05-31-2024 End: 05-31-2024 Bamboo flowsheet Lauren HILL Work Phone: [facility] Start: 05-31-2024 End: 05-31-2024 Bamboo flowsheet Lauren Torres PA Work Phone: [facility] Start: 05-25-2024 End: 05-25-2024 ambulatory Pastora Kohler [employer] Work Phone: [facility] Work Phone: Start: 05-25-2024 End: 05-25-2024 Patient encounter procedure Pastora Kohler [employer] Work Phone: [facility] Work Phone: Start: 05-25-2024 End: 05-25-2024 ambulatory Pastora Kohler [employer] Work Phone: [facility] Work Phone: Start: 05-25-2024 End: 05-25-2024 Patient encounter procedure Pastora Mejíazpatrick [employer] Work Phone: Pending [facility] Work Phone: Start: 05-23-2024 End: 05-23-2024 Bamboo flowsheet Blane Pino DPM Work Phone: [facility] Start: 05-23-2024 End: 05-23-2024 Bamboo flowsheet Blane Pino DPM Work Phone: [facility] Start: 05-23-2024 End: 05-23-2024 Office outpatient visit 15 minutes Blane Pino DPM Work Phone: [facility] Comment on above: Bursitis of left isaac t (Primary Dx); Acquired keratoderma; Pain in left foot; Difficulty walking Start: 05-23-2024 End: 05-23-2024 ambulatory BLANE PINO Not Available Start: 04-26-2024 End: 04-26-2024 Office outpatient visit 40 minutes Jr. Rica Rodriguez DO Work Phone: [facility] Comment on above: Acute pain of right shoulder (Primary Dx); Arthritis of right acromioclavicular joint; Biceps tendinitis, right; Partial nontraumatic tear of rotator cuff, right Start: 04-26-2024 End: 04-26-2024 ambulatory RICA KANG Not Available Start: 04-18-2024 End: 04-18-2024 Telephone encounter Lalitha Trujillo [employer] Work Phone: [facility] Start: 04-12-2024 End: 04-12-2024 Bamboo flowsheet Alexandra Osorio [employer] Work Phone: [facility] Start: 04-12-2024 End: 04-12-2024 Bamboo flowsheet Alexandra Nunes Yoly [employer] Work Phone: [facility] Start: 04-12-2024 End: 04-12-2024 Office outpatient visit 25 minutes Alexandra Nunes Yoly [employer] Work Phone: [facility] Comment on above: Type 2 diabetes livier itus with diabetic mononeuropathy, with long-term current use of insulin ([facility]) (Primary Dx); SOB (shortness of breath); Wheezing; Poorly-controlled hypertension ([facility]) Start: 04-12-2024 End: 04-12-2024 Orders Only Alexandra Nunes Yoly [employer] Work Phone: [facility] Comment on [...] Office outpatient visit 25 minutes Jr. Rica Nair Stepanic DO Work Phone: [facility] Comment on above: Acute pain of right shoulder (Primary Dx); Arthritis of right acromioclavicular joint; Biceps tendinitis, right Start: 03-16-2024 End: 03-16-2024 ambulatory RICA KANG Not Available Start: 2024 End: 2024 Refill Judith G Amanda Work Phone: [facility] Comment on above: Mixed hyperlipidemia (CMS/HCC) Start: 03-10-2024 End: 03-10-2024 Patient encounter procedure Pastora Kohler [employer] Work Phone: [facility] [place] Work Phone: Start: 03-10-2024 End: 03-10-2024 ambulatory Pastora Kohler [employer] Work Phone: [facility] Work Phone: Start: 03-05-2024 End: 03-05-2024 Bamboo flowsheet Alexandra Osorio [employer] Work Phone: [facility] Start: 03-05-2024 End: 03-05-2024 Bamboo flowsheet Alexandra Osorio [employer] Work Phone: [facility] Start: 03-05-2024 End: 03-05-2024 Telephone encounter Alexandra Osorio [employer] Work Phone: [facility] Start: 03-05-2024 End: 03-05-2024 Office outpatient visit 15 minutes Alexandra Osorio [employer] Work Phone: [facility] Comment on above: Left leg cellulitis (Primary Dx); Type 2 diabetes mellitus with diabetic mononeuropathy, with long-term current use of insulin ([facility]); Skin rash; Opioid dependence, uncomplicated (CMS/HCC) Start: 03-05-2024 End: 03-05-2024 ambulatory ALEXANDRA Des OSORIO Not Available Start: 03-02-2024 End: 03-02-2024 Telephone encounter Lauren HILL Work Phone: [facility] Comment on above: MRI Concerns Start: 03-01-2024 Non-patient / Non-visit Sid Kohler [employer] Work Phone[facility] Work Phone: Start: 02-29-2024 End: 02-29-2024 Office outpatient visit 25 minutes Alexandra Osorio [employer] Work Phone: [facility] Comment on above: Type 2 diabetes livier itus with diabetic mononeuropathy, with long-term current use of insulin ([facility]) (Primary Dx); Left leg cellulitis; Morbid (severe) obesity due to excess calories (CMS/[facility]); Body mass index (BMI) 50.0-59.9, adult (CMS/[facility]); Type 2 diabetes mellitus with other skin complications (CMS/[facility]); Bipolar disorder, unspecified ([facility]) Start: 02-29-2024 End: 02-29-2024 ambulatory ALEXANDRA Des OSORIO Not Available Start: 02-29-2024 End: 02-29-2024 Bamboo flowsheet Alexandra A Yoly [employer] Work Phone: [facility] Start: 02-29-2024 End: 02-29-2024 Bamboo flowsheet Alexandra A Yoly [employer] Work Phone: [facility] Start: 01-26-2024 End: 01-26-2024 Bamboo flowsheet Lauren HILL Work Phone: [facility] Start: 01-26-2024 End: 01-26-2024 Bamboo flowsheet Lauren HILL Work Phone: [facility] Start: 01-26-2024 End: 01-26-2024 Office outpatient visit 15 minutes Lauren HILL Work Phone: [facility] Comment on above: Acute pain of right shoulder (Primary Dx); Arthritis of right acromioclavicular joint; Internal derangement of right shoulder; History of claustrophobia Start: 01-26-2024 End: 01-26-2024 ambulatory LAUREN TORRES Not Available Start: 01-19-2024 End: 01-19-2024 Bamboo flowsheet Pastora Kohler [employer] Work Phone: [facility] Start: 01-19-2024 End: 01-19-2024 Bamboo flowsheet Pastora Kohler [employer] Work Phone: [facility] Start: 01-19-2024 End: 01-19-2024 Office outpatient visit 15 minutes Pastora Kohler [employer] Work Phone: [facility] Comment on above: Bronchitis (Primary Dx); 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); Wheezing Start: 01-19-2024 End: 01-19-2024 ambulatory PASTORA KOHLER Not Available Start: 01-11-2024 End: 01-13-2024 Refill Judith Newman DO Work Phone: [facility] Comment on above: Primary hypertension (CMS/HCC) Start: 01-05-2024 End: 01-05-2024 ambulatory AKANKSHA SANFORD [facility] Start: 12-30-2023 End: 12-30-2023 ambulatory [facility] Work Phone: Start: 12-30-2023 End: 12-30-2023 Patient encounter procedure Pending [facility] Work Phone: Start: 12-29-2023 End: 12-29-2023 Bamboo [...] Not Available Start: 12-24-2023 Non-patient / Non-visit [facility] Work Phone: Start: 12-11-2023 End: 12-11-2023 Bamboo flowsheet Lauren Torres PA Work Phone: [facility] Start: 12-11-2023 End: 12-11-2023 Bamboo flowsheet Lauren Torres PA Work Phone: [facility] Start: 12-11-2023 End: 12-11-2023 Office outpatient visit 15 minutes Lauren HILL Work Phone: [facility] Comment on above: Acute pain of left k nee (Primary Dx); History of left knee replacement Start: 12-11-2023 End: 12-11-2023 ambulatory LAUREN TORRES Not Available Start: 12-06-2023 End: 12-07-2023 Refill Judith Newman DO Work Phone: [facility] Comment on above: Primary hypertension (CMS/HCC) Start: 11-20-2023 End: 11-20-2023 Bamboo flowsheet Lauren Torres PA Work Phone: [facility] Start: 11-20-2023 End: 11-20-2023 Bamboo flowsheet Lauren Torres PA Work Phone: [facility] Start: 11-20-2023 End: 11-20-2023 Office outpatient visit 25 minutes Lauren Torres PA Work Phone: [facility] Comment on above: Acute pain of left k nee (Primary Dx); History of left knee replacement; Left hip pain Start: 09-23-2023 End: 09-23-2023 ambulatory [facility] Work Phone: Start: 09-23-2023 End: 09-23-2023 Patient encounter procedure [facility] Work Phone: Start: 08-04-2023 End: 08-04-2023 ambulatory PASTORA Nunes KOHLER [facility] Start: 07-28-2023 End: 07-29-2023 ambulatory PASTORA Nunes [facility] Start: 07-16-2023 End: 07-20-2023 ambulatory PASTORA Nunes [facility] Start: 07-16-2023 Encounter for other preprocedural examination [facility] Start: 06-30-2023 End: 06-30-2023 ambulatory [facility] Start: 06-30-2023 End: 06-30-2023 Subsequent hospital visit by physician Piotr Logan MD Work Phone: [facility] Cardiac Cath/IR Lab Comment on above: Abnormal stress test Start: 06-29-2023 End: 06-30-2023 ambulatory [facility] Start: 06-29-2023 Non-patient / Non-visit [facility] Work Phone: Start: 06-23-2023 End: 06-25-2023 ambulatory [facility] Start: 06-23-2023 [facility] [place] [facility] Start: 06-18-2023 End: 06-20-2023 ambulatory LOPEZ Rayo [facility] Start: 06-15-2023 End: 06-15-2023 ambulatory LOPEZ Rayo [facility] Start: 06-04-2023 End: 06-04-2023 Telephone encounter Edwin Moreno MD Work Phone: [facility] Comment on above: Procedure (Out of ne twork) Start: 06-03-2023 End: 06-03-2023 ambulatory EDWIN MORENO [facility] Start: 06-03-2023 End: 06-03-2023 Office outpatient new 60 minutes Edwin Moreno MD Work Phone: [facility] Comment on above: Endometrial cancer ( [facility]-HCC) (Primary Dx); BMI 50.0-59.9, adult ([facility]-HCC) Start: 05-22-2023 End: 05-22-2023 ambulatory Shawnsanket Slao Work Phone: [facility] Work Phone: Start: 05-22-2023 End: 05-22-2023 Departed Referred Shawn Salo Work Phone: [facility] Path [facility] Start: 05-11-2023 End: 05-11-2023 ambulatory [facility] Work Phone: Start: 05-11-2023 End: 05-11-2023 Patient encounter procedure [facility] Work Phone: Start: 04-22-2023 Non-patient / Non-visit [facility] Work Phone: Start: 04-21-2023 End: 04-21-2023 Patient encounter procedure [facility] Work Phone: Start: 04-07-2023 End: 04-07-2023 ambulatory DO Kalie Rumschlag Work Phone: [facility] Work Phone: Start: 04-07-2023 End: 04-07-2023 Patient encounter procedure DO Klaie Rumschlag Work Phone: [facility] Work Phone: Start: 03-04-2023 End: 03-04-2023 ambulatory Lili Burgos Other [email or web address] Other Start: 03-04-2023 Telephone encounter Lilihebert Bello [facility] Start: 02-03-2023 (DM) Diabetes Illi Scally [facility] Start: 02-03-2023 End: 02-03-2023 ambulatory DO Kalie Rumschlag Work Phone: [email or web address] Other Start: 02-03-2023 End: 02-03-2023 Discharged Recurring DO Kalie Rumschlag Work Phone: [facility] Work Phone: Start: 02-03-2023 End: 02-03-2023 Patient encounter procedure DO Kalie Rumschlag Work Phone: [facility] Work Phone: Start: 01-26-2023 End: 01-26-2023 ambulatory Lili Scally Other [email or web address] Other Start: 01-26-2023 Telephone encounter Lili Aubrey [facility] Start: 01-02-2023 End: 01-02-2023 ambulatory Lili Scally Other [email or web address] Other Start: 01-02-2023 Telephone encounter Lili Airamly F [facility] Start: 11-26-2022 (DM) Diabetes Lili Scally [facility] Start: 11-26-2022 End: 11-26-2022 ambulatory Lili Scally Other [email or web address] Other Start: 11-25-2022 End: 11-25-2022 ambulatory Stoney Turner Other [email or web address] Other Start: 11-25-2022 Office outpatient ne w 30 minutes Stoney Turner [facility] Start: 11-12-2022 End: 11-12-2022 ambulatory Lili Scally Other [employer] Other Start: 11-12-2022 Telephone encounter Lili matthew [facility] Start: 10-30-2022 End: 10-30-2022 Admission to same day surgery center DO Judith Amanda Work Phone: [facility] Work Phone: Start: 10-30-2022 End: 10-30-2022 ambulatory DO Judith G Amanda Work Phone: [facility] Work Phone: Start: 10-09-2022 End: 10-09-2022 ambulatory Martine Tobias Other [facility] [employer] Other Start: 10-09-2022 Office outpatient vi sit 25 minutes Martine Tobias [facility] Start: 10-07-2022 End: 10-07-2022 ambulatory DO Judith G Amanda Work Phone: [facility] Work Phone: Start: 10-07-2022 End: 10-07-2022 Patient encounter procedure DO Judith Amanda Work Phone: [facility] Work Phone: Start: 10-03-2022 (DM) Diabetes Lili Airamwinston [facility] Start: 10-03-2022 End: 10-03-2022 ambulatory Lili Scalwinston Other [email or web address] Other Start: 10-03-2022 Registered Recurring DO Judith Amanda Work Phone: [facility] Work Phone: Start: 09-26-2022 End: 09-26-2022 ambulatory Lili Burgos Other [employer] Other Start: 09-26-2022 Telephone encounter Lili Airamwinston Bello [facility] Start: 09-19-2022 End: 09-19-2022 ambulatory DO Kalie Rumschlag Work Phone: [facility] Work Phone: Start: 09-19-2022 End: 09-19-2022 Patient encounter procedure DO Kalie Rumschlag Work Phone: [facility] [place] Work Phone: Start: 08-18-2022 End: 08-18-2022 ambulatory DO Kalie Rumschlag Work Phone: [facility] Work Phone: Start: 08-18-2022 End: 08-18-2022 Patient encounter procedure DO Kalie Rumschlag Work Phone: [facility] [place] Work Phone: Start: 08-12-2022 End: 08-12-2022 ambulatory Martine Tobias Other [email or web address] Other Start: 08-12-2022 Office outpatient ne w 45 minutes Martine Tobias [facility] Start: 08-12-2022 Telephone encounter Lili Aubrey [facility] Start: 08-05-2022 End: 08-05-2022 ambulatory Lili Burgos Other [email or web address] Other Start: 08-05-2022 Telephone encounter Lili Airamwinston Bello [facility] Start: 08-01-2022 (DM) Diabetes Lili [facility]ach [facility] Start: 08-01-2022 End: 08-01-2022 ambulatory Lili Burgos Other [email or web address] Other Start: 08-01-2022 Registered Recurring DO Kalie Rumschlag Work Phone: [facility] Work Phone: Start: 07-22-2022 End: 07-22-2022 ambulatory Lili Burgos Other [email or web address] Other Start: 07-22-2022 Telephone encounter Lilihebert matthew [facility] Start: 07-09-2022 End: 07-09-2022 ambulatory Lili Scally Other [email or web address] Other Start: 07-09-2022 Telephone encounter Lili [facility] Start: 07-01-2022 End: 07-02-2022 [facility] Facility: Start: 06-20-2022 End: 06-21-2022 [facility] Facility: Start: 06-16-2022 End: 06-16-2022 ambulatory Lililillian Burgos Other [email or web address] Other Start: 06-16-2022 Telephone encounter Lilihebert mat[facility]w [facility] Start: 06-06-2022 (DM) Diabetes Lili Storey[facility] Start: 06-06-2022 End: 06-06-2022 ambulatory Lili Airamly Other [email or web address] Other Start: 06-03-2022 End: 06-03-2022 ambulatory NARENDRANLEN LAKSHMIPATHY . Facility:[facility] Start: 05-15-2022 End: 05-16-2022 [facility] Facility: Start: 05-13-2022 End: 05-13-2022 ambulatory Lili Airamly Other [email or web address] Other Start: 05-13-2022 Telephone encounter Lili [facility]rey [facility] Start: 04-14-2022 End: 04-14-2022 ambulatory Lili Airamly Other [email or web address] Other Start: 04-14-2022 Telephone encounter Lili [facility] Start: 04-03-2022 End: 04-03-2022 ambulatory Lili Airamly Other [email or web address] Other Start: 04-03-2022 Telephone encounter Lili Scally F [facility] Start: 03-24-2022 End: 03-24-2022 ambulatory Lili Scally Other [email or web address] Other Start: 03-24-2022 Telephone encounter Lili Airamly F [facility] Start: 03-21-2022 End: 03-21-2022 ambulatory Lili Airamly Other [email or web address] Other Start: 03-21-2022 Telephone encounter Lili Airamly [facility] Start: 03-06-2022 (DM) Diabetes Lili Airamly [facility] Start: 03-06-2022 End: 03-07-2022 [facility] Other Start: 02-13-2022 End: 02-14-2022 [facility] Facility:[facility] Start: 12-31-2021 End: 12-31-2021 ambulatory Lili Airamly Other [email or web address] Other Start: 12-31-2021 Telephone encounter Lili Airamly F [facility] Start: 12-11-2021 [facility] Start: 11-20-2021 End: 11-20-2021 ambulatory Lili Scally Other [email or web address] Other Start: 11-20-2021 Telephone encounter Lili Airamly [facility] Start: 11-06-2021 End: 11-07-2021 [facility] Facility:[facility] Start: 10-28-2021 (DM) Diabetes Lili Scally [facility] Start: 10-28-2021 End: 10-28-2021 ambulatory Lili Scally Other [email or web address] Other Start: 09-20-2021 End: 09-20-2021 ambulatory Lili Scally Other [email or web address] Other Start: 09-20-2021 Telephone encounter Lili Scally [facility] Start: 09-12-2021 End: 09-12-2021 ambulatory Lili Scally Other [email or web address] Other Start: 09-12-2021 Telephone encounter Lili Scally [facility] Start: 08-01-2021 End: 08-02-2021 [facility] Facility: Start: 07-22-2021 End: 07-22-2021 ambulatory Lili Scally Other [email or web address] Other Start: 07-22-2021 Telephone encounter Lili Scally [facility] Start: 07-08-2021 End: 07-08-2021 ambulatory Lili Scally Other [email or web address] Other Start: 07-08-2021 Telephone encounter Lili Scally [facility] Start: 07-04-2021 (DM) Diabetes Lili Scally [facility] Start: 07-04-2021 End: 07-04-2021 ambulatory Lili Scally Other [email or web address] Other Start: 06-20-2021 End: 06-20-2021 ambulatory Clifford Munoz Other [email or web address] Other Start: 06-20-2021 Telephone encounter Clifford [facility]thew [facility] Start: 04-19-2021 End: 04-19-2021 ambulatory Clifford Munoz Other [email or web address] Other Start: 04-19-2021 Telephone encounter Clifford matthe[facility] Start: 03-28-2021 End: 03-28-2021 ambulatory Clifford Munoz Other [email or web address] Other Start: 03-28-2021 Telephone encounter Clifford matthew [facility] Start: 01-29-2021 End: 01-29-2021 ambulatory Clifford Garciadiff Ghulam Other [email or web address] Other Start: 01-29-2021 Telephone encounter Clifford key Pending [facility] To [facility] Start: 11-27-2020 Telephone encounter Clifford key Pending Sale To [facility] Start: 11-21-2020 (DM) Diabetes Clifford Munoz Jr. [facility] Start: 09-25-2016 End: 09-26-2016 Ambulatory QUECHRISTI HAMMONDCRISTOBAL Facility:[facility] Start: 09-20-2016 End: 09-20-2016 Emergency department patient visit LAUREN CARDENAS Facility:[facility] Start: 09-08-2016 End: 09-15-2016 Evaluation and management of inpatient QUECHRISTI MITCHELLADRY Facility:[facility] Procedures Date Procedure Procedure Detail Performing Clinician Start: 11-17-2024 Iaadiadoo streptococcus group a Jennifer Cabrera MD Work Phone: Start: 11-17-2024 STATUS COVID-19/FLU Jennifer Cabrera MD Work Phone: Start: 10-31-2024 XR pre/post mri xray Pastora Kohler [employer] Work Phone: Start: 10-31-2024 MR lumbar spine wo con Pastora conti [employer] Work Phone: Start: 03-10-2024 XR pre/post mri xray Pastora Mejíazpatrick [employer] Work Phone: Start: 03-10-2024 MRI of right shoulder Pastora Velardejosé miguel das [employer] Work Phone: Start: 12-29-2023 Arthrocentesis aspir&/inj interm jt/burs w/o us Lauren HILL Work Phone: Start: 12-29-2023 Radex shoulder complete minimum 2 views Lauren HILL Work Phone: Start: 09-15-2023 Mammography Lauren HILL Work Phone: Start: 07-28-2023 H/O: section History of 3 sections Alexandra Osorio [employer] Work Phone: Start: 06-15-2023 Microscopic observation [Identifier] in Cervix by Cyto stain Piotr Logan MD Work Phone: Start: 10-30-2022 Lumbosacral myelography DO Judith Amanda Work Phone: Start: 10-07-2022 Dual energy X-ray absorptiometry DO [facility] Work Phone: Start: 09-19-2022 MR lumbar spine [...] 06-14-2028 Screening for malignant neoplasm of cervix [facility] Start: 06-14-2026 Screening for malignant neoplasm of cervix Pap smear [facility] Start: 08-30-2025 Medicare Annual Wellness (AWV) Medicare Annual Wellness (AWV) [facility] Start: 08-15-2025 Influenza vaccination Influenza Vaccine (#1) [facility] Comment on above: Postponed from 10/17/2024 (Patient Refus ed) Start: 05-04-2025 Glaucoma screening Diabetes: Retinopathy Screening [facility] Start: 03-01-2025 Urine screening for protein Diabetes: Urine Protein Screening [facility] Start: 11-30-2024 Hemoglobin A1c measurement Diabetes: Hemoglobin A1C [facility] Start: 11-21-2024 End: 11-21-2024 Patient encounter procedure 11/21/2024 4:00 PM EDT [facility] [address] [place] [phone] Pastora Kohler NP [address] [place] [address] Arrived [facility] Comment on above: Arrived Start: 10-17-2024 Influenza vaccination [facility] Start: 09-26-2024 End: 09-26-2024 Professional / ancillary services management 09/26/2024 9:30 AM EDT Ancillary Procedure [facility] [address] [place] [address] [facility] Start: 09-23-2024 End: 09-23-2024 Patient encounter procedure 09/23/2024 3:30 PM EDT [facility] [address] [facility] [place] [phone] Lalitha Trujillo NP [address] [facility] [place] [address] Arrived [facility] Comment on above: Arrived Start: 09-23-2024 End: 09-23-2025 XR Lumbar spine Views W flexion and W extension XR lumbar spine 4+ views w flexion extension Imaging Routine Acute left-sided low back pain with left-sided sciatica Expected: 09/23/2024, Expires: 09/23/2025 [facility] Work Phone: Comment on above: Expected: 09/23/2024, Expires: Start: 09-14-2024 Screening for malignant neoplasm of breast Mammogram [facility] Start: 08-30-2024 End: 08-30-2025 CBC W Auto Differential panel - Blood CBC and differential Lab Routine Encounter for wellness examination Expected: 08/30/2024 (Approximate), Expires: 08/30/2025 [facility] Comment on above: Expected: 08/30/2024 (Approximate), Expi res: 08/30/2025 Start: 08-30-2024 End: 08-30-2025 Comprehensive metabolic 2000 panel - Serum or Plasma Comprehensive metabolic panel Lab Routine Encounter for wellness examination Primary hypertension Type 2 diabetes mellitus with hyperglycemia, with long-term current use of insulin (HCC) Morbid obesity (CMS-HCC) Expected: 08/30/2024 (Approximate), Expires: 08/30/2025 [facility] Work Phone: Comment on above: Expected: 08/30/2024 (Approximate), Expi res: 08/30/2025 Start: 08-30-2024 End: 10-31-2025 DBT Breast - bilateral screening Bilateral screening mammogram with tomosynthesis Imaging Routine Encounter for screening mammogram for malignant neoplasm of breast Expected: 08/30/2024, Expires: 10/31/2025 [facility] Comment on above: Expected: 08/30/2024, Expires: Start: 08-30-2024 End: 08-30-2025 Hemoglobin A1c/Hemoglobin.total in Blood Hemoglobin A1c Lab Routine Encounter for wellness examination Type 2 diabetes mellitus with hyperglycemia, with long-term current use of insulin (HCC) Morbid obesity (CMS-HCC) Expected: 08/30/2024 (Approximate), Expires: 08/30/2025 [facility] Comment on above: Expected: 08/30/2024 (Approximate), Expi res: 08/30/2025 Start: 08-30-2024 End: 08-30-2025 Lipid 1996 panel - Serum or Plasma Lipid panel Lab Routine Encounter for wellness examination Primary hypertension Type 2 diabetes mellitus with hyperglycemia, with long-term current use of insulin (HCC) Morbid obesity ([facility]) Mixed hyperlipidemia Expected: 08/30/2024 (Approximate), Expires: 08/30/2025 [facility] Comment on above: Expected: 08/30/2024 (Approximate), Expi res: 08/30/2025 Start: 08-30-2024 End: 08-30-2025 TSH W/REFLEX TO FT4 TSH W/REFLEX TO FT4 Lab Routine Encounter for wellness examination Morbid obesity ([facility]) Expected: 08/30/2024 (Approximate), Expires: 08/30/2025 [facility] Comment on above: Expected: 08/30/2024 (Approximate), Expi res: 08/30/2025 Start: 08-24-2024 Hemoglobin A1c measurement Diabetes: Hemoglobin A1C [facility] Start: 08-24-2024 End: 08-24-2024 Patient encounter procedure [facility] Comment on above: S/P arthroscopy of right shoulder (Prima ry Dx) Start: 08-09-2024 End: 08-09-2024 Patient encounter procedure 08/09/2024 10:30 AM EDT Office Visit [facility] [address] [place] [phone] Pastora Kohler NP [address] [place], [place] [phone] [facility] Start: 08-02-2024 End: 08-02-2025 XR Knee - right 4 Views XR knee 4+ views right Imaging Routine Acute pain of right knee Expected: 08/02/2024, Expires: 08/02/2025 [facility] Comment on above: Expected: 08/02/2024, Expires: Start: 08-02-2024 End: 08-02-2025 XR Shoulder - right 2 Views XR shoulder 2+ views right Imaging Routine Acute pain of right shoulder Expected: 08/02/2024, Expires: 08/02/2025 [facility] Work Phone: Comment on above: Expected: 08/02/2024, Expires: Start: 08-02-2024 End: 08-02-2024 Patient encounter procedure 08/02/2024 9:30 AM EDT Office Visit [facility] [address] [place] [phone] Pastora Kohler NP [address] [place] [address] Arrived [facility] Comment on above: Arrived Start: 07-20-2024 End: 07-20-2024 Patient encounter procedure [facility] Comment on above: S/P arthroscopy of right shoulder (Prima ry Dx) Start: 07-01-2024 End: 07-01-2024 Patient encounter procedure [facility] Comment on above: S/P arthroscopy of right shoulder (Prima ry Dx) Start: 06-28-2024 Hemoglobin A1c measurement A1C test (Diabetic or Prediabetic) [facility] Start: 06-28-2024 Lipid panel Lipids [facility] Start: 06-14-2024 End: 06-14-2026 Echocardiogram 2D complete Echocardiogram 2D complete Echocardiography Routine Nonrheumatic aortic valve stenosis Expected: 06/14/2024 (Approximate), Expires: 06/14/2026 [facility] Work Phone: Comment on above: Expected: 06/14/2024 (Approximate), Expi res: 06/14/2026 Start: 06-14-2024 End: 06-14-2024 Patient encounter procedure 06/14/2024 10:00 AM EDT Office Visit [facility] [address] [place] [phone] Jennifer Cabrera MD [address] [place] [address] Arrived [facility] Comment on above: Arrived Start: 06-10-2024 End: 06-10-2024 Patient encounter procedure 06/10/2024 11:30 AM EDT Office Visit [facility] [address] [place] [address] Lalitha Trujillo NP [address] [facility] [place] [address] Arrived [facility] Comment on above: Arrived Start: 06-09-2024 End: 06-09-2024 Patient encounter procedure 06/09/2024 2:45 PM EDT Procedure Visit [facility] [address] [place] [phone] Blane Pino DPM [address] [place] [address] [facility] Start: 06-02-2024 Adult BMI Screening Adult BMI Screening [facility] Start: 06-02-2024 Tobacco Screening Tobacco Screening [facility] Start: 05-31-2024 End: 05-31-2024 Patient encounter procedure [facility] Comment on above: Pre-op examination (Primary Dx) Start: 05-23-2024 End: 05-23-2024 Patient encounter procedure 05/23/2024 1:30 PM EDT Office Visit [facility] [address] [place] [phone] Blane Pino DPM [address] [place] [address] Arrived [facility] Comment on above: Arrived Start: 05-13-2024 Medicare Annual Wellness (AWV) Medicare Annual Wellness (AWV) [facility] Start: 05-04-2024 Hemoglobin A1c measurement Diabetes: Hemoglobin A1C [facility] Start: 04-26-2024 End: 04-26-2024 Patient encounter procedure 04/26/2024 8:45 AM EDT Office Visit [facility] [address] [place] [phone] Jr. Rica Rodriguez, DO [address] [facility] [address] [place] [address] [facility] Start: 04-21-2024 Urine screening for protein Diabetes: Urine Protein Screening [facility] Start: 04-12-2024 End: 04-12-2025 XR Chest 2 Views [facility] Work Phone: Comment on above: Expected: 04/12/2024, Expires: Start: 04-12-2024 End: 04-12-2024 Patient encounter procedure 04/12/2024 11:00 AM EST Office Visit [facility] [address] [place] [phone] Alexandra Osorio NP [address] [place] [address] Arrived [facility] Comment on above: Arrived Start: 03-23-2024 End: 03-23-2024 ambulatory 03/23/2024 9:00 AM EST Evaluation [facility] [address] [place] [phone] Sean Tineo, PT [address] [place] [address] Biceps tendinitis, right [facility] Comment on above: Biceps tendinitis, right Start: 03-18-2024 End: 03-18-2024 ambulatory 03/18/2024 2:00 PM EST Evaluation [facility] [address] [place] [phone] Sean Tineo, PT [address] [place] [address] [facility] Start: 03-16-2024 End: 03-16-2024 Patient encounter procedure [facility] Comment on above: Acute pain of right shoulder (Primary Dx ); Arthritis of right acromioclavicular joint; Biceps tendinitis, right Start: 03-05-2024 End: 03-05-2024 Patient encounter procedure 03/05/2024 9:00 AM EST Office Visit [facility] [address] [place] [phone] Alexandra Osorio NP [address] [place] [address] Arrived [facility] Comment on above: Arrived Start: 03-03-2024 End: 03-03-2024 Patient encounter procedure 03/03/2024 9:30 AM EST Office Visit [facility] [address] [place] [phone] Alexandra Osorio [employer] [address] [place] [address] [facility] Start: 03-02-2024 End: 03-02-2024 Patient encounter procedure 03/02/2024 9:30 AM EST Office Visit [facility] [address] [facility] [address] [place] [phone] Jr. Rica Rodriguez DO [address] [place] [address] [facility] Start: 02-29-2024 End: 02-29-2024 Patient encounter procedure 02/29/2024 4:30 PM EST Office Visit [facility] [address] [place] [phone] Alexandra Osorio [employer] [address] [place] [address] Arrived [facility] Comment on above: Arrived Start: 02-23-2024 End: 02-23-2024 Patient encounter procedure 02/23/2024 10:00 AM EST Office Visit [facility] [address] [place] [phone] Lauren Torres, PA [address] [place] [address] [facility] Start: 01-26-2024 End: 01-26-2024 Patient encounter procedure 01/26/2024 10:15 AM EST Office Visit [facility] [address] [place] [phone] Lauren Torres PA [address] [facility] [address] [place] [address] Acute pain of right shoulder (Primary Dx); Arthritis of right acromioclavicular joint [facility] Comment on above: Acute pain of right shoulder (Primary Dx ); Arthritis of right acromioclavicular joint Start: 01-22-2024 End: 01-22-2024 Patient encounter procedure 01/22/2024 10:15 AM EST Office Visit [facility] [address] [place] [address] Lauren Torres PA [address] [facility] [address] [place] [address] [facility] Start: 01-19-2024 End: 01-19-2024 Patient encounter procedure 01/19/2024 11:30 AM EST Office Visit [facility] [address] [place] [phone] Pastora Kohler NP [address] [facility] [place] [address] Arrived [facility] Comment on above: Arrived Start: 12-11-2023 End: 12-11-2023 Patient encounter procedure [facility] Comment on above: Acute pain of left knee (Primary Dx) Start: 11-20-2023 End: 11-20-2023 Patient encounter procedure 11/20/2023 9:00 AM EDT Office Visit [facility] [address] [place] [phone] Lauren Torres PA [address] [facility] [address] [place] [address] Acute pain of left knee (Primary Dx) [facility] Comment on above: Acute pain of left knee (Primary Dx) Start: 10-18-2023 Influenza vaccination [facility] Start: 10-16-2023 Hemoglobin A1c measurement Diabetes: Hemoglobin A1C [facility] Start: 06-30-2023 End: 06-30-2023 Patient encounter procedure 06/30/2023 8:30 AM EDT Office Visit Liz Pineda [facility] [address] [place] [address] Nishi High PA [address] [place] [address] Liz Pineda [facility] Start: 06-15-2023 End: 06-15-2023 Admission to same day surgery center 06/15/2023 2:00 PM EDT - 06/15/2023 4:30 PM EDT Surgery [address] [phone] Edwin Moreno MD [address] [place], [place] [phone] DAVINCI HYSTERECTOMY SALPINGO OOPHORECTOMY [facility] Comment on above: DAVINCI HYSTERECTOMY SALPINGO OOPHORECTO MY Start: 06-15-2023 End: 06-15-2023 DAVINCI DISSECTION LYMPH NODE PELVIC SENTINEL DAVINCI DISSECTION LYMPH NODE PELVIC SENTINEL ENDOMETRIAL CANCER 06/15/2023 2:00 PM EDT [facility] Start: 06-15-2023 End: 06-15-2023 DAVINCI HYSTERECTOMY SALPINGO OOPHORECTOMY DAVINCI HYSTERECTOMY SALPINGO OOPHORECTOMY ENDOMETRIAL CANCER 06/15/2023 2:00 PM EDT [facility] Start: 06-15-2023 Subsequent hospital visit by physician 06/15/2023 2:00 PM EDT Hospital Encounter [facility] [address] [place] [phone] Edwin Moreno MD [address], [address] [place] [address] [facility] Start: 06-05-2023 End: 06-05-2023 Admission to establishment 06/05/2023 2:45 PM EDT Support Visit [facility] On [address] [phone] [facility] On [facility] Start: 02-16-2023 Annual Wellness Visit (Medicare Advantage) Annual Wellness Visit (Medicare Advantage) [facility] Start: 01-16-2023 COVID-19 Vaccine () COVID-19 Vaccine () [facility] Start: 10-30-2022 [facility] Start: 10-30-2022 Computerized axial tomography of lumbar spine with contrast [facility] Start: 02-14-2021 Screening for malignant neoplasm of breast Breast cancer screen [facility] Start: 2020 Respiratory Syncytial Virus (RSV) or age 60 yrs+ (1 - 1-dose 60+ series) Respiratory Syncytial Virus (RSV) or age 60 yrs+ (1 - 1-dose 60+ series) [email or web address] Start: 2010 Administration of varicella zoster vaccine Zoster (Shingles) Vaccine (1 of 2) [facility] Start: 2010 Shingles vaccine (1 of 2) Shingles vaccine (1 of 2) [facility] Start: 2005 Screening for malignant neoplasm of colon [facility] Start: 1981 Screening for malignant neoplasm of cervix Pap Smear [facility] Start: 1979 Administration of varicella zoster vaccine Zoster (Shingles) Vaccine (1 of 2) [facility] Start: 1979 DTaP,Tdap and Td Vaccines (1 - Tdap) DTaP,Tdap and Td Vaccines (1 - Tdap) [facility] Start: 1979 DTaP/Tdap/Td vaccine (1 - Tdap) DTaP/Tdap/Td vaccine (1 - Tdap) [email or web address] Start: 1979 Urine screening for protein Diabetes: Urine Protein Screening [facility] Start: 1978 Adult BMI Follow Up Plan Adult BMI Follow Up Plan [facility] Start: 1978 GFR test (Diabetes, CKD 3-4, OR last GFR 15-59) GFR test (Diabetes, CKD 3-4, OR last GFR 15-59) [facility] Start: 1978 Glaucoma screening Diabetic retinal exam [facility] Start: 1978 Hepatitis C screening Hepatitis C screen [facility] Start: 1978 Urine screening for protein Diabetic Alb to Cr ratio (uACR) test [facility] [employer] Start: 1975 HIV screening HIV screen [facility] [employer] Start: 1972 Depression Monitoring Depression Monitoring [facility] [employer] Start: 1972 Depression Screening Depression Screening [facility] Start: 1970 Diabetic foot examination Diabetic foot exam [facility] Start: 1966 Pneumococcal 0-64 years Vaccine (1 of 2 - PCV) Pneumococcal 0-64 years Vaccine (1 of 2 - PCV) [facility] Start: 1960 Medicare Annual Wellness (AWV) Medicare Annual Wellness (AWV) [facility] Start: 1960 Screening for malignant neoplasm of colon [facility] Comprehensive metabo lic 2000 panel - Serum or Plasma [facility] Oxygen therapy [[facility] mum Data Set] Initiate Oxygen Therapy Protocol Respiratory Care Routine As Needed until discontinued starting 06/30/2023 [facility] Comment on above: As Needed until discontinued starting Oxygen therapy [[facility] Data Set] Initiate Oxygen Therapy Protocol Respiratory Care Routine As Needed until discontinued starting 06/30/2023 [facility] Comment on above: As Needed until discontinued starting Patient Education Pending Sale To [facility] Work Phone: End: 06-26-2023 Percutaneous coronary intervention [facility] Work Phone: Comment on above: One Time for 1 Occurrences starting 06/16 until 06/26/2023 XR Hip - left 3 Views XR hip lef t 2 or 3 views Imaging Routine Left hip pain 11/20/2023 9:24 AM EDT [facility] XR Knee - left 1 or 2 Views XR knee 1 or 2 views left Imaging Routine Acute pain of left knee 11/20/2023 9:05 AM EDT [facility] Work Phone: [facility] Immunizations Immunization Date Immunization Notes Care Provider [facility] 11-21-2024 influenza, seasonal, injectable, preservative free Pastora Kohler [employer] Work Phone: [facility] 08-30-2024 Pneumococcal Conjuga te PCV 20 Lalitha Trujillo [employer] Work Phone: [facility] 11-21-2022 influenza virus vaccine, unspecified formulation Edwin Moreno MD Work Phone: [facility] 11-21-2022 influenza, injectabl e, quadrivalent, preservative free Lauren HILL Work Phone: [facility] 11-21-2022 SARS-COV-2 (COVID-19 ) vaccine, mRNA, spike protein, LNP, PF, 50 mcg/0.5 mL Lauren HILL Work Phone: [facility] 02-26-2022 influenza virus vaccine, unspecified formulation Piotr Logan MD Work Phone: [facility] 02-26-2022 influenza, injectabl e, quadrivalent, preservative free Lauren HILL Work Phone: [facility] 06-12-2020 COVID-19 Vaccine Moderna - Documentation Purposes Only Clifford Munoz Jr. Other [facility] 05-15-2020 COVID-19 Vaccine Moderna - Documentation Purposes Only Clifford Munoz Jr. Other [facility] 12-09-2016 influenza virus vaccine, unspecified formulation Piotr Logan MD Work Phone: [facility] 12-09-2016 influenza, injectabl e, quadrivalent, preservative free Lauren HILL Work Phone: [facility] 10-17-2016 influenza virus vaccine, unspecified formulation Piotr Logan MD Work Phone: [facility] 01-03-2015 influenza virus vaccine, unspecified formulation Piotr Logan MD Work Phone: [facility] 01-03-2015 influenza, seasonal, injectable, preservative free Lauren HILL Work Phone: [facility] 01-03-2014 influenza virus vaccine, unspecified formulation Piotr Logan MD Work Phone: [facility] 01-03-2014 influenza, seasonal, injectable Lauren HILL Work Phone: [facility] Payers Date Payer Category Payer Self-pay [id number] 2022 Medicare (Managed Care) [id number]. [id number] 2022 Unknown [employer] O [employer] [id number] 2022-Present [address] [address] [place] [address] [id number] 2021 Unknown [id number] 2021 Medicare [id number] 2017 Medicare [id number] 1960 Unknown [id number] 1960 Unknown [id number] 1960 Unknown [id number] 1960 Unknown [id number] 1960 Unknown [id number] 1960 Unknown [id number] 2.16.840.1.052171.3.579.2. 593 1960 Unknown [id number] 2.16.840.1.071029.3.579.2. 593 1960 Unknown [id number] 2.16.840.1.990137.3.579.2. 593 1960 Unknown [id number] 2.16.840.1.475021.3.579.2. 593 1960 Unknown [id number] 2.16.840.1.063483.3.579.2. 1286 1960 Unknown [id number] 2.16.840.1.170821.3.579.2. 173 1960 Unknown [id number] 2.16.840.1.787096.3.579.2. 175 1960 Unknown [id number] 2.16.840.1.237844.3.579.2. 175 1960 Unknown [id number] 2.16.840.1.262503.3.579.2. 175 1960 Unknown [id number] 2.16.840.1.360234.3.579.2. 175 1960 Unknown [id number] 2.16.840.1.132770.3.579.2. 175 1960 Unknown [id number] 2.16.840.1.417099.3.579.2. 175 1960 Unknown [id number] 2.16.840.1.562081.3.579.2. 175 1960 Unknown [id number] 2.16.840.1.933238.3.579.2. 175 1960 Unknown [id number] 2.16.840.1.003381.3.579.2. 175 1960 Unknown [id number] 2.16.840.1.482759.3.579.2. 175 1960 Unknown [id number] 2.16.840.1.674410.3.579.2. 718 1960 Unknown [id number] 2.16.840.1.482187.3.579.2. 718 1960 Unknown [id number] 2.16.840.1.621346.3.579.2. 1286 1960 Unknown [id number] 2.16.840.1.871410.3.579.2. 1286 1960 Unknown [id number] 2.16.840.1.288191.3.579.2. 1286 1960 Unknown [id number] 2.16.840.1.695387.3.579.2. 1286 1960 Unknown [id number] 2.16.840.1.910375.3.579.2. 1259 1960 Unknown [id number] 2.16.840.1.256040.3.579.2. 1259 1960 Unknown [id number] 2.16.840.1.733782.3.579.2. 1259 1960 Unknown [id number] 2.16.840.1.222525.3.579.2. 1259 1960 Unknown [id number] 2.16.840.1.224959.3.579.2. 1259 1960 Unknown [id number] 2.16.840.1.354952.3.579.2. 1259 1960 Unknown [id number] 2.16.840.1.086027.3.579.2. 125 1960 Unknown [id number] 2.16.840.1.501633.3.579.2. 1259 1960 Unknown [id number] 2.16.840.1.645842.3.579.2. 125 1960 Unknown [id number] 2.16.840.1.565251.3.579.2. 125 1960 Unknown [id number] 2.16.840.1.687906.3.579.2. 1258 1960 Unknown [id number] 2.16.840.1.214169.3.579.2. 1258 1960 Unknown [id number] 2.16.840.1.605560.3.579.2. 1258 1960 Unknown [id number] 2.16.840.1.744438.3.579.2. 125 1960 Unknown [id number] 2.16.840.1.240598.3.579.2. 1258 1960 Unknown [id number] 2.16.840.1.620461.3.579.2. 125 1960 Unknown [id number] 2.16.840.1.210335.3.579.2. 125 1960 Unknown [id number] 2.16.840.1.939817.3.579.2. 125 1960 Unknown [id number] 2.16.840.1.044966.3.579.2. 125 1960 Unknown [id number] 2.16.840.1.554894.3.579.2. 125 1960 Unknown [id number] 2.16.840.1.378092.3.579.2. 1251 Unknown [id number] 2.16.840.1.310747.3.579.2. 1258 1960 Unknown [id number] 2.16.840.1.408331.3.579.2. 1258 1960 Unknown [id number] 2.16.840.1.947127.3.579.2. 1258 1960 Unknown [id number] 2.16.840.1.155212.3.579.2. 1258 1960 Unknown [id number] 2.16.840.1.083387.3.579.2. 1258 1960 Unknown [id number] 2.16.840.1.855670.3.579.2. 1258 1960 Unknown [id number] 2.16.840.1.176751.3.579.2. 1258 1960 Unknown [id number] 2.16.840.1.474675.3.579.2. 1258 1960 Unknown [id number] 2.16.840.1.172081.3.579.2. 9 1959 Medicare [id number] 2.16.840.1.145395.19 1959 Private Health Insurance [id number] Medicare [id number] 2.840.1.234633.19 Unknown Alexis MOSER/LUKE [id number] Unknown [id number] 2.16.840.1.033391.3.579.2. 531 Unknown [id number] 2.16.840.1.552425.3.579.2. 531 Unknown [id number] 2.16.840.1.408559.3.579.2. 531 Social History Date Type Detail Facility Unknown if ever smoked [email or web address] Other Start: 06-15-2023 End: 09-23-2024 Sex Assigned At [facility] Work Phone: Start: 01-03-2021 End: 05-11-2023 Tobacco smoking status NHIS Ex-smoker (finding) [facility] Start: 1960 Sex Assigned At Female [facility] End: 06-20-2010 History of tobacco use Current smoker [facility] End: 06-20-2010 History of tobacco use Cigarette Smoker [facility] Start: 11-03-2022 End: 06-15-2023 Tobacco use and exposure Smokeless tobacco non-user [employer] Start: 06-30-2023 End: 11-21-2024 Alcohol intake [facility]-dr[facility] (finding[facility] Start: 06-15-2023 End: 09-23-2024 History of Social function [facility] Work Phone: Start: 1960 Sex Assigned At Not on file [facility] Start: 11-03-2022 Tobacco smoking status ORIS Never smoked tobacco [facility] Start: 10-30-2022 Alcohol Comment caffeine: 3-4 cups per day [facility] Start: 12-30-2023 End: 05-26-2024 Sex Female (finding) [facility] Start: 06-03-2023 Alcoholic beverage intake Lifetime non-drinker (finding) [facility] Childcare Unknown [facility] Start: 04-12-2024 Alcohol Comment caffeine: 2 cu ps per day [facility] Start: 06-10-2024 Alcohol Comment caffeine: 2-3 cups per day [facility] NEGATED: Highlighted rowStart: NINF History of tobacco use Passive smoker [facility] Change Healthcare Medical Equipment Procedure Code Equipment Code Equipment Origin al Text Equipment Identifier Dates Arthroplasty, knee, total, minimally invasive Orthopaedic cement, non-medicated [id number] FDA Start: 01-03-2021 Arthroplasty, knee, total, minimally invasive Uncoated knee femur prosthesis ()[id number] FDA Start: 01-03-2021 Arthroplasty, knee, total, minimally invasive Tibial insert ()[id number] FDA Start: 01-03-2021 Arthroplasty, knee, total, minimally invasive Polyethylene patella prosthesis ()[id number] FDA Start: 01-03-2021 Arthroplasty, knee, total, minimally invasive Uncoated knee tibia prosthesis, metallic ()[id number] FDA Start: 01-03-2021 [id number] Start: 01-29-2021 Blood Sugar Diagnostic (Accu-Chek Guide [...] Diagnostic (Accu-Chek Guide Test Strips) strip Start: 11-07-2024 Lancets (Accu-Ch ek Fastclix Lancet Drum) misc Start: 11-07-2024 Pen Needle, Diab etic 32 gauge x 1/4 needle Start: 05-02-2024 Blood Sugar Diagnostic (Accu-Chek Guide Test Strips) strip Start: 05-06-2023 End: 05-06-2023 Blood Sugar Diagnostic (Accu-Chek Guide Test Strips) strip Start: 05-06-2023 End: 08-03-2023 Blood Sugar Diagnostic (Accu-Chek Guide Test Strips) strip Start: 08-03-2023 End: 11-07-2024 Lancets (Accu-Ch ek Fastclix Lancet Drum) misc Start: 08-03-2023 End: 08-03-2023 Lancets (Accu-Ch ek Fastclix Lancet Drum) misc Start: 08-03-2023 End: 11-07-2024 Pen Needle, Diab etic 32 gauge x 1/4 needle Start: 05-02-2024 End: 05-02-2024 Functional Status Date Assessment Result Facility 09-23-2024 PHQ-9 quick depressi on assessment panel [Reported.PHQ] [facility] 09-23-2024 Patient Health Quest ionnaire 2 item (PHQ-2) [Reported] [facility] 08-30-2024 Patient Health Quest ionnaire 2 item (PHQ-2) [Reported] [facility] 06-14-2024 Patient Health Quest ionnaire 2 item (PHQ-2) [Reported] [facility] Clinical Notes 11-21-2020 to 11-22-2024 Telephone Encounter - Rohit Sanford - 11/22/2024 2:13 PM EDTTelephone Encounter - Rohit Sanford - 11/22/2024 2:13 PM EDTChkia Kohler NP - 11/21/2024 4:00 PM EDTPatient Instructions Note Date & Type Note Facility 11-22-2024 Telephone encounter Note Lesli called asking for a call regarding x-ray results. [phone] [facility] 11-22-2024 Miscellaneous Notes Lesli called asking for a call regarding x-ray results. [phone] documented in this encounter [facility] 11-21-2024 History of Present illness Narrative Images from [...] Edit History Meds - Accu-Chek FastClix Lancets [facility] Accu-Chek Guide test strip amLODIPine (Norvasc) 5 MG tablet ARIPiprazole (Abilify) 15 MG tablet atorvastatin (Lipitor) 40 MG tablet buPROPion XL (Wellbutrin XL) 300 MG 24 hr tablet ergocalciferol (Vitamin D2) 1.25 MG (73160 UT) capsule hydrOXYzine HCl (Atarax) 25 MG tablet insulin degludec (Tresiba) 100 UNIT/ML injection Klayesta 026907 UNIT/GM powder losartan-hydroCHLOROthiazide (Hyzaar) 50-12.5 MG tablet [...] 2+ views; Future documented in this encounter [facility] 11-19-2024 Telephone encounter Note Is she taking her metformin? Please check with pharmacy and see when last filled. [facility] 11-19-2024 Miscellaneous Notes Is she taking her metformin? Please check with pharmacy and see when last filled. documented in this encounter [facility] 11-17-2024 History of Present illness Narrative Subjective ?Quick Links Last Note in Specialty [...] Edit History Meds - Accu-Chek FastClix Lancets [facility] Accu-Chek Guide test strip amLODIPine (Norvasc) 5 MG tablet ARIPiprazole (Abilify) 15 MG tablet atorvastatin (Lipitor) 40 MG tablet buPROPion XL (Wellbutrin XL) 300 MG 24 hr tablet ergocalciferol (Vitamin D2) 1.25 MG (01196 UT) capsule hydrOXYzine HCl (Atarax) 25 MG tablet insulin degludec (Tresiba) 100 UNIT/ML injection Klayesta 012944 UNIT/GM powder losartan-hydroCHLOROthiazide (Hyzaar) 50-12.5 MG tablet [...] making. BP 126/74 Pulse 82 Temp 98.6 F Ht 5' 3 Wt 294 lb SpO2 94% BMI 52.08 kg/m Physical Exam Physical Exam General Appearance: Normal. [...] test is negative, a COVID-19 test will be performed due to the sore throat symptoms. documented in this encounter [facility] 09-23-2024 History of Present illness Narrative Images [...] and has an upcoming appointment with her automotive painter helper at the end of this month. Her [...] with pain management. documented in this encounter [facility] 09-14-2024 History of Present illness Narrative Images from the original note were not included. Lesli Clya is a 64 y.o. female presents with chief complaint of ER Follow-up HPI: Flowsheet Row Office Visit from 09/14/2024 in [facility] with Lalitha Trujillo NP Hospital Information ED, Hospital or Fpc Facility Discharge? ED Patient has been contacted within 2 days of being seen in the ED No Have two attempts been made, within 2 days of being seen in the ED, to contact the patient? -- [yes] Diagnosis [facility] Discharge Date 09/08/24 Discharged To: Home Setting Discharge Hospital [facility] Engagement Admission Date 09/08/24 Medications Discharge medications reviewed and reconciled from hospital? Yes Appointments Does the patient have a primary care provider? Yes Self Management Patient Teaching Does the patient have access to their discharge instructions? Yes Wrap Up ER Follow-up SUBJECTIVE: MEDICATIONS: Current Outpatient Medications Medication Instructions Accu-Chek FastClix Lancets [facility] Accu-Chek Guide test strip amLODIPine (NORVASC) 5 mg, Oral, Daily amoxicillin-clavulanate (Augmentin) 875-125 MG tablet 1 tablet, 2 times daily ARIPiprazole (Abilify) 15 MG tablet Every 24 hours atorvastatin (LIPITOR) 40 mg, Oral, Daily buPROPion XL (Wellbutrin XL) 300 MG 24 hr tablet ergocalciferol (Vitamin D2) 1.25 MG (16334 UT) capsule hydrOXYzine HCl (ATARAX) 25 mg, Every 6 hours PRN insulin degludec (TRESIBA) 48 Units, Subcutaneous, Nightly Klayesta 034284 UNIT/GM powder APPLY EXTERNALLY TO AFFECTED SKIN [...] week to reassess. documented in this encounter [facility] 08-30-2024 History of Present illness Narrative Associated [...] partial remission -manage by psych Associated Problem(s): FDC (current) use of insulin (HCC) Associated Problem(s): [...] is currently under the care of a automotive painter helper and takes medication, but it does not seem to alleviate the pain. She takes urpt-qni-wmqajtb Motrin 3 times daily, including once at night with her other medications. She is scheduled to see her automotive painter helper in either September or October 2024, as [...] independence. Living will and durable power of patent prosecution attorney reviewed. Updated patient problem list and [...] uterine cancer -managed by oncology Morbid obesity ([facility]) Orders: Comprehensive metabolic panel; Future Lipid panel; [...] disorder, in partial remission -manage by psych manager intermediate (current) use of insulin ([facility]) Chronic kidney disease, stage 2 (mild) -drink [...] be administered today. documented in this encounter [facility] 08-24-2024 History of Present illness Narrative Images [...] sciatica. She is advised to consult her [place] pain management provider if needed or primary [...] requiring urgent evaluation. Visit was preformed using [employer] pilot speech recognition. documented in this encounter [facility] 08-02-2024 Telephone encounter Note Reviewed Xrays- (R) knee and shoulder- no obvious fracture.... Pt's spouse also had MRI done..- Will call to discuss results. Spoke with pt. Reports she fell on right side, hit knee cap.. will focus on ice and rest.. shoulder is sore... formal radiology reads pending.... will keep scheduled follow up for now. [facility] 08-02-2024 Miscellaneous Notes Reviewed Xrays- (R) knee [...] She is scheduled with you 08/24 in [place]. There is no earlier openings. Please advise. documented in this encounter [facility] 08-02-2024 Telephone encounter Note Patient's called to let us know she did have xrays done today at her appt for her knee and shoulder. [facility] 08-02-2024 History of Present illness Narrative Images [...] Outpatient Medications Medication Instructions Accu-Chek FastClix Lancets [facility] Accu-Chek Guide test strip ARIPiprazole (Abilify) 15 MG tablet Every 24 hours ARIPiprazole (ABILIFY) 10 mg, Daily atorvastatin (LIPITOR) 40 mg, Oral, Daily buPROPion XL (Wellbutrin XL) 300 MG 24 hr tablet ergocalciferol (Vitamin D2) 1.25 MG (88755 UT) capsule hydrOXYzine HCl (ATARAX) 25 mg, Every 6 hours PRN insulin degludec (TRESIBA) 48 Units, Subcutaneous, Nightly Klayesta 087133 UNIT/GM powder APPLY EXTERNALLY TO AFFECTED SKIN [...] by mouth Daily documented in this encounter [facility] 08-01-2024 Telephone encounter Note Patient's called in stating patient fell on her right arm today and paramedics thinks she should be seen sooner. She is scheduled with you 08/24 in [place]. There is no earlier openings. Please advise. [facility] 07-20-2024 History of Present illness Narrative Images [...] requiring urgent evaluation. Visit was preformed using [employer] pilot speech recognition. documented in this encounter [facility] 07-01-2024 History of Present illness Narrative Images [...] requiring urgent evaluation. Visit was preformed using [employer] pilot speech recognition. documented in this encounter [facility] 07-01-2024 Instructions SERGIO Iglesias - 07/01/2024 10:00 [...] soon as possible documented in this encounter [facility] 06-21-2024 History of Present illness Narrative Images [...] requiring urgent evaluation. Visit was preformed using [employer] pilot speech recognition. documented in this encounter [facility] 06-20-2024 Note [id number] [facility] 06-17-2024 Note [facility] SURGERY Clinical Discharge Summary PERSON INFORMATION Name LESLI CLAY Age 64 Years 1960 Sex FEMALE Language Arabic PCP JENNIFER CABRERA Marital Status Phone Med Service Ambulatory Surgery N 19-07-02 Acct# Arrival 06/17/2024 10:32:36 Visit Reason SURGERY - RIGHT SHOULDER ARTHROSCOPY WITH ROTATOR CUFF REPAIR AND BICEP TENODESIS Acuity LOS 052 05:37 Address: [address] [place] [address] Comment: PROVIDER INFORMATION VITALS INFORMATION Vital Sign [...] (pregabalin 100 mg (more content not included)... [facility] 06-16-2024 Telephone encounter Note PDMP reviewed. Patient takes 7.5mg oxycodone 3x a day. [facility] Work Phone: 06-16-2024 Miscellaneous Notes PDMP reviewed. Patient takes 7.5mg oxycodone 3x a day. documented in this encounter [facility] 06-14-2024 History of Present illness Narrative Images from the original note were not included. Lesli Clay is a 64 y.o. female presents with chief complaint of Rt shoulder replacement 06/17/[address] [facility]. EKG and labs done on 06/01/24. HPI: [...] nortriptyline. Chronic pain is managed by a automotive painter helper. Tizanidine is taken once at night as [...] Outpatient Medications Medication Instructions Accu-Chek FastClix Lancets [facility] Accu-Chek Guide test strip ARIPiprazole (Abilify) 15 MG tablet Every 24 hours ARIPiprazole (ABILIFY) 10 mg, Daily atorvastatin (LIPITOR) 40 mg, Oral, Daily buPROPion XL (Wellbutrin XL) 300 MG 24 hr tablet ergocalciferol (Vitamin D2) 1.25 MG (45490 UT) capsule hydrOXYzine HCl (ATARAX) 25 mg, Every 6 hours PRN insulin degludec (TRESIBA) 48 Units, Subcutaneous, Nightly Klayesta 570370 UNIT/GM powder APPLY EXTERNALLY TO AFFECTED SKIN [...] day. - Pain management regimen prescribed by automotive painter helper. - Continue current medications and follow-up as [...] prior to surgery. documented in this encounter [facility] 06-10-2024 History of Present illness Narrative Images [...] Outpatient Medications Medication Instructions Accu-Chek FastClix Lancets [facility] Accu-Chek Guide test strip ARIPiprazole (Abilify) 15 MG tablet Every 24 hours atorvastatin (LIPITOR) 40 mg, Oral, Daily buPROPion XL (Wellbutrin XL) 300 MG 24 hr tablet ergocalciferol (Vitamin D2) 1.25 MG (83108 UT) capsule hydrOXYzine HCl (ATARAX) 25 mg, Every 6 hours PRN insulin degludec (TRESIBA) 48 Units, Subcutaneous, Nightly Klayesta 436425 UNIT/GM powder APPLY EXTERNALLY TO AFFECTED SKIN [...] SURGERY 2016 x2 Rods and Screws at [place] SECTION, LOW TRANSVERSE x 3 DILATION AND CURETTAGE DILATION AND CURETTAGE OF UTERUS 05/22/2023 hysteroscopy with myosure HYSTERECTOMY LUMBAR FUSION 2010 Dr. Ken NECK SURGERY 2009 C5-C6 Neck - Dr. Ken RI ARTHROSCOPY KNEE DIAGNOSTIC W/WO SYNOVIAL BX SPX Left 2011 @[facility]? [place] TOTAL KNEE ARTHROPLASTY Right 10/2017 Dr. Blake [...] persist or worsen. documented in this encounter [facility] 05-31-2024 History of Present illness Narrative Images [...] SURGERY 2009 C5-C6 Neck - Dr. Ken RI ARTHROSCOPY KNEE DIAGNOSTIC W/WO SYNOVIAL BX SPX Left 2011 @[facility]? [place] TOTAL KNEE ARTHROPLASTY Right 10/2017 Dr. Blake [...] Outpatient Medications Medication Instructions Accu-Chek FastClix Lancets [facility] Accu-Chek Guide test strip ARIPiprazole (Abilify) 15 MG tablet Every 24 hours atorvastatin (LIPITOR) 40 mg, Oral, Daily buPROPion XL (Wellbutrin XL) 300 MG 24 hr tablet ergocalciferol (Vitamin D2) 1.25 MG (48022 UT) capsule hydrOXYzine HCl (ATARAX) 25 mg, [...] on file. documented in this encounter [facility] 05-25-2024 Evaluation note Diagnosis Onset Date Resolution Dietary counseling and surveillance acute May 25, 2024 9:32am Encounter for long-term (current) insulin use acute May 25, 2024 9:32am Hyperlipemia acute May 25, 025 9:32am Hypertension acute May 25 025 9:32am Type 2 diabetes mellitus with hyperglycemia acute May 25 9:32am Vitamin D deficiency, unspecified acute May 25, 2024 9:32am [facility] Work Phone: 1(282) 264-740004-07-2025 History of Present illness Narrative* Blane Pino, HANSA - 05/23/2024 1:30 PM EDT Images from [...] poor quality slip on shoes; recently purchased [employer] footwear with memory foam, which has been [...] Rfl: 0 ergocalciferol (Vitamin D2) 1.25 MG (33296 UT) capsule, TAKE 1 CAPSULE BY MOUTH [...] SURGERY 2015 x2 Rods and Screws at [place] SECTION, LOW TRANSVERSE x 3 DILATION AND CURETTAGE DILATION AND CURETTAGE OF UTERUS 05/22/2023 hysteroscopy with myosure LUMBAR FUSION 2010 Dr. Ken NECK SURGERY 2009 C5-C6 Neck - Dr. Ken RI ARTHROSCOPY KNEE DIAGNOSTIC W/WO SYNOVIAL BX SPX Left 2011 @[facility]? [place] TOTAL KNEE ARTHROPLASTY Right 10/2017 Dr. Blake [...] understanding. Blane Pino DPM documented in this [facility]04-07-2025 Instructions* Patient Instructions* Blane Pino DPM - 05/23/2024 1:30 PM EDT As noted documented in this [facility]03-11-2025 History of Present illness Narrative* [...] VISIT WITH INSTRUCTION ON HEP) PAIN MANAGEMENT @[facility] NO IMPROVEMENT. PAIN LATERAL AND ANTERIOR [...] for claustrophobia ergocalciferol (Vitamin D2) 1.25 MG (18002 UT) capsule TAKE 1 CAPSULE BY MOUTH [...] requiring urgent evaluation. documented in this encounterSaint [facility]'s [id number] Telephone encounter Note* Telephone Encounter - Lalitha Trujillo NP - 04/18/2024 2:11 PM EST Can you please get her schedule for DM appointment next week, she is due to have her A1c rechecked [facility] Work Phone: 1(569) 752-449303-03-2025 Miscellaneous Notes* Telephone Encounter - Lalitha Trujillo NP - 04/18/2024 2:11 PM EST Can you please get her schedule for DM appointment next week, she is due to have her A1c rechecked documented in this encounterSaint Luke's [id number] History of Present illness Narrative* Alexandra Osorio [...] of asthma. She has been self-medicating with vtzk-czn-xtzsbqb cough and cold medications but did not take any such medication yesterday. Her blood pressure was recorded as 232/109 during a recent visit to her dough puncher in [place], prompting a recheck post-examination, which yielded a [...] for claustrophobia ergocalciferol (Vitamin D2) 1.25 MG (14461 UT) capsule TAKE 1 CAPSULE BY MOUTH [...] 08/2016 COVID 02/2020 DENIES BLOODBORNE DX Depression ([facility]) Diabetes ([facility]) GERD (gastroesophageal reflux disease) HTN (hypertension) ([facility]) Hyperlipidemia ([facility]) Osteoarthritis RSD (reflex sympathetic dystrophy) Social History Tobacco Use Smoking status: Never Smokeless tobacco: Never Vaping Use Vaping status: Never Used Substance Use Topics Alcohol use: Not Currently Comment: caffeine: 2 cups per day Drug use: Never Past Surgical History: Procedure Laterality Date BACK SURGERY 2015 x2 Rod[place] Screws at [place] SECTION, LOW TRANSVERSE x 3 DILATION AND CURETTAGE DILATION AND CURETTAGE OF UTERUS 05/22/2023 hysteroscopy with myosure LUMBAR FUSION 2010 Dr. Ken NECK SURGERY 2009 C5-C6 Neck - Dr. Ken RI ARTHROSCOPY KNEE DIAGNOSTIC W/WO SYNOVIAL BX SPX Left 2011 @[facility]? [place] TOTAL KNEE ARTHROPLASTY Right 10/2017 Dr. Blake [...] mononeuropathy, with long-term current use of insulin ([facility]) SOB (shortness of breath) - XR chest [...] 232/109 during a recent visit to her dough puncher.It is possible that her gmbb-gjx-cxqgvvg cough and cold medication, if containing DM, could have contributed to the elevation in her blood pressure. She is advised to monitor her blood pressure at home on a weekly basis and report any readings exceeding 150/90. She is also reminded to adhere to herdaily antihypertensive medication regimen and maintain adequate hydration. No follow-ups on file. documented in this encounterSaint Luke's [id number] History of Present illness Narrative* Sean Tineo, [...] shoulder pain. Mechanism of Onset: no known NEGRTIA or cause reported, significant pain goes back [...] Please sign below. Date: documented in this [facility]01-29-2025 History of Present illness Narrative* Jr. Rica [...] 12/29/23 NO MDP/PREDNISONE NO PT PAIN MANAGEMENT @[facility] STATES SHOULDER IS FEELING WORSE. PAIN LATERAL [...] for claustrophobia ergocalciferol (Vitamin D2) 1.25 MG (18350 UT) capsule TAKE 1 CAPSULE BY MOUTH [...] Use - Medium Risk (01/05/2024) Received from [facility]ads Patient History Smoking Tobacco Use: Former Smokeless [...] for requiring urgent evaluation. documented in this [facility]01-28-2025 Telephone encounter Note* Telephone Encounter - Jennifer Cabrera MD - 2024 12:47 PM EST Refills sent. [id number] Miscellaneous Notes* Telephone Encounter - Jennifer Cabrera MD - 2024 12:47 PM EST Refills sent. documented in this [facility]01-18-2025 Telephone encounter Note* Telephone Encounter - Alexandra Osorio NP - 03/05/2024 9:01 AM EST Please call and request her records from Lili Burgos NP at [facility] for her diabetes. [facility] [id number] Miscellaneous Notes* Telephone Encounter - Alexandra Osorio NP - 03/05/2024 9:01 AM EST Please call and request her records from Lili Burgos NP at [facility] for her diabetes. documented in this [facility]01-18-2025 History of Present illness Narrative* Comfort French, LUISA - 03/05/2024 9:00 AM EST Images from [...] for claustrophobia ergocalciferol (Vitamin D2) 1.25 MG (81214 UT) capsule TAKE 1 CAPSULE BY MOUTH [...] She is under the care of an conference translator for her diabetes management. Her most recent lrazrifvchI6y level was either 7.9 or 8, indicating [...] for claustrophobia ergocalciferol (Vitamin D2) 1.25 MG (86361 UT) capsule TAKE 1 CAPSULE BY MOUTH [...] SURGERY 2016 x2 Rods and Screws at [place] SECTION, LOW TRANSVERSE x 3 DILATION AND CURETTAGE DILATION AND CURETTAGE OF UTERUS 05/22/2023 hysteroscopy with myosure LUMBAR FUSION 2010 Dr. Ken NECK SURGERY 2009 C5-C6 Neck - Dr. Ken RI ARTHROSCOPY KNEE DIAGNOSTIC W/WO SYNOVIAL BX SPX Left 2011 @[place]? [place] TOTAL KNEE ARTHROPLASTY Right 10/2017 Dr. Blake [...] mononeuropathy, with long-term current use of insulin ([facility]) Skin rash Assessment & Plan Rash on [...] 8, indicating suboptimal control. Records from her conference translator will be requested to review her recent A1c levels and overall management plan. No follow-ups on file. documented in this encounterSaint Luke's [id number] Telephone encounter Note* Telephone Encounter - Omaira Estrada - 03/02/2024 1:20 PM EST Patient notified [facility] [id number] Miscellaneous Notes* Telephone Encounter - Omaira Estrada - 03/02/2024 1:20 PM EST Patient notified * Telephone Encounter - SERGIO Iglesias - 03/02/2024 12:38 PM EST Rx sent to pharmacy, please notify pt. She can not drive with medication and can't work after taking them.. will need a trolley coach driver too and from MRI appt. * [...] would like to try that. She uses [facility]. Her call back is [phone]. Please advise, thank you documented in this encounterSaint Luke's [id number] Telephone encounter Note* Telephone Encounter - SERGIO Iglesias - 03/02/2024 12:38 PM EST Rx sent to pharmacy, please notify pt. She can not drive with medication and can't work after taking them.. will need a trolley coach driver too and from MRI appt. [facility] [id number] Telephone encounter Note* Telephone Encounter - Omaira Estrada - 03/02/2024 10:31 AM EST Patient called asking about medication for MRI for claustrophobia. Patient states she has tried the pills for premed (possibly Xanax but she isn't sure) and they did not help her. Patient states another medication was discussed in office and she would like to try that. She uses [facility]. Her call back is [phone]. Please advise, thank you [facility] [id number] History of Present illness Narrative* Alexandra Osorio, JEWEL BLOCKER AND SAWYER - 02/29/2024 4:30 PM EST Images from [...] She is under the care of an conference translator, Dr. Burgos, at [facility] for her diabetes management. Her last consultation [...] tablet daily ergocalciferol (Vitamin D2) 1.25 MG (16793 UT) capsule TAKE 1 CAPSULE BY MOUTH [...] mononeuropathy, with long-term current use of insulin ([facility]) Symptoms are likely related to diabetic neuropathy. She [place] [facility] [place] and had an [...] and agreed to plan. documented in this encounterSaint Luke's [id number] History of Present illness Narrative* SERGIO Iglesias [...] tablet daily ergocalciferol (Vitamin D2) 1.25 MG (18254 UT) capsule TAKE 1 CAPSULE BY MOUTH [...] Use - Medium Risk (01/05/2024) Received from [facility] Patient History Smoking Tobacco Use: Former Smokeless [...] The possibility of conducting the MRI at [facility] with potential IM sedation was considered, and [...] requiring urgent evaluation. documented in this encounterSaint Luke's [id number] History of Present illness Narrative* Pastora Kohler, [...] tablet daily ergocalciferol (Vitamin D2) 1.25 MG (10817 UT) capsule TAKE 1 CAPSULE BY MOUTH [...] office tomorrow in improvement. documented in this encounterSaint Luke's [id number] Evaluation note* Diagnosis Onset Date Resolution Status Admit Date Dietary counseling and surveillance acute December 29, 2 024 9:39am Encounter for long-term (current) insulin use acute December 172023 9:39am Hyperlipemia acute December 9:39am Hypertension acute December 9:39am Type 2 diabetes mellitus wit h hyperglycemia acute December 29, 024 9:39am Vitamin D deficiency, unspecified acute December 29, 024 9:39am [facility] Work Phone: 1(749) 730-653911-12-2024 History of Present illness Narrative* SERGIO Iglesias [...] tablet daily ergocalciferol (Vitamin D2) 1.25 MG (58902 UT) capsule TAKE 1 CAPSULE BY MOUTH [...] requiring urgent evaluation. documented in this encounterSaint Luke's [id number] History of Present illness Narrative* SERGIO Iglesias [...] tablet daily ergocalciferol (Vitamin D2) 1.25 MG (35384 UT) capsule TAKE 1 CAPSULE BY MOUTH [...] requiring urgent evaluation. documented in this encounterSaint Luke's [id number] History of Present illness Narrative* SERGIO Iglesias [...] tablet daily ergocalciferol (Vitamin D2) 1.25 MG (69834 UT) capsule TAKE 1 CAPSULE BY MOUTH [...] requiring urgent evaluation. documented in this encounterSaint Luke's [id number] Hospital Discharge instructions* Discharge Instructions* Gladys Frias [...] unless otherwise instructed. [facility] History of Present illness Narrative* Gladys Frias RN - 06/30/2023 11:16 AM EDT Patient admitted, consent signed and questions answered. Patient ready for procedure. Call light toreach with side rails up 2 of 2. Bilateral groin clipped with va underwriter and Gabrielle NGUYEN present. Salvador at bedside with patient. History and physical needs updated. [facility] Miscellaneous Notes* Telephone Encounter - Liat Camejo - 06/04/2023 2:58 PM EDT Box Sealing Machine Catcher rec'd VM from [facility] in precert stating Dr. Moreno/Andre is out network with this patient insurance and procedure will not be covered, however, pt insurance covers [facility]. Box Sealing Machine Catcher [facility] to see if they could see this patient and take over care, theyrequested all information be faxed to their office and they will reach out to patient. Box Sealing Machine Catcher did notify patient we had to cx procedure and all upcoming appts, [facility], pt voices understanding and va underwriter advised pt to call our office back if she has any problems getting established with another provider, pt voices understanding. documented in this [facility] Telephone encounter Note* Telephone Encounter - Liat Camejo - 06/04/2023 2:58 PM EDT Box Sealing Machine Catcher rec'd VM from [facility] in precert stating Dr. Moreno/Andre is out network with this patient insurance and procedure will not be covered, however, pt insurance covers [facility]. Box Sealing Machine Catcher [facility] patient to see if they could see this patient and take over care, theyrequested all information be faxed to their office and they will reach out to patient. Box Sealing Machine Catcher did notify patient we had to cx procedure and all upcoming appts, [facility], pt voices understanding and va underwriter advised pt to call our office back if she has any problems getting established with another provider, pt voices understanding. [facility]04-17-2024 History of Present illness Narrative* Edwin Moreno [...] repair on left lower extremity NECK SURGERY 2011 ROTATOR CUFF REPAIR 2012 rotator cuff repair on both side Past Medical History: Diagnosis Date Anxiety Arthritis Cellulitis Depression Diabetes mellitus ([facility]) Diabetes mellitus type 2, controlled ([facility]) Fibromyalgia, primary GERD (gastroesophageal reflux disease) Hyperlipidemia [...] recurrent major depressive disorder, without psychotic features ([facility]) Cellulitis of right lower extremity Endometrial cancer ([facility]) BMI 50.0-59.9, adult ([facility]) Plan: 1. The patient has a documented [...] procedures Referring and communicating with other health rn transitional care (not separately reported) Documenting clinical information in the electronic or other health record Edwin Moreno MD documented in this encounterSelect [facility] Evaluation note* Author [facility] Authored April 07, 2023 11:54am Patient [...] for Bella CGM will be sent to [facility] to determine cost for CGM. Patient provided contact number for [facility]. If pt is unable to afford CGM, pt instructed to continue use of her personal meter. Pt to return in 2 weeks for download with physician assistant surgery and in approximately 4 week follow up with provider. Encouraged to return for follow up visit. 45 minutes spent on education with Jodi DAIGLE RN. [facility] Work Phone: 1(321) 965-864602-20-2024 Evaluation note* Author [facility] Authored April 07, 2023 11:54am Patient [...] for Bella CGM will be sent to [facility] to determine cost for CGM. Patient provided contact number for [facility]. If pt is unable to afford CGM, pt instructed to continue use of her personal meter. Pt to return in 2 weeks for download with physician assistant surgery and in approximately 4 week follow up with provider. Encouraged to return for follow up visit. 45 minutes spent on education with Jodi DAIGLE, RN. Author Lili [facility] Authored May 11, 2023 1:1 8pm [...] have likely improved. Checking on CGM from [facility]-- processing 4 weeks ago, would benefit from surveillance --: but cost prohibitive ($130/ 3mos per [facility] Reduce Tresiba to 48 [...] of hypoglycemia, hyperglycemia, or diabetes medication issues. [facility] Work Phone: 1(421) 571-313412-19-2023 Evaluation note* Encounter Date Diagnosis Assessment Notes [...] of insulin. Patient deferred due to her jhv-rg-cminbk cost. 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 Patient deferred due to her pam-di-ijvwit cost. 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 Patient deferred due to her xda-wu-euubha cost. We will retry in a couple [...] medication issues. 6. Prescriptions: None needed 10-03-2022.PAP Ozempic/Elvie. PAP denied for Jardiance Sep, Vitamin D [...] 143/88, goal of less than 130/80 Sep, FDC current use of insulin (ICD-10 - Z79.4) Sep, BMI 50.0-59.9, adult (ICD-10 - Z68.43) [email or web address] Other 06-27-2023 Evaluation note* Encounter Date Diagnosis Assessment Notes Treatment Notes Treatment Clinical Notes Jul, Lumbar radiculopathy (ICD-10 - M54.16) Independently reviewed the CT of the lumbar spine from 03/06/22, reviewed sacw-uh-paeh with patient which shows which shows multilevel degenerative changes with mild to moderate canal and foraminal narrowing at the L4-L5. Shows posterior mechanical fusion at the L1-S1 with posterior decompression at the L1-L3. Patient had physical therapy at [facility] and continues to do the home [...] as prescribed. Will add lidocaine patch and acnk-rvz-gfgzcil Thermo patch. Will follow-up in 8 weeks [...] rule out osteoporosis Jul, Other [facility] reveiwed [employer] Other 06-16-2023 Evaluation note* Encounter Date Diagnosis [...] of insulin. Patient deferred due to her shp-sd-qpcsdf cost. 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 Weight up today without decrease in insulin needs, no increases satiety The patient was given a Dexcom G6 sample and loaned an Office owned Dexcom G6 Black Powder Glazing Operator. The sensor was placed on the back of her right arm by this educator. The patient was shown how to unlock the production miner and read her BG. 15 minutes were spent placing the sensor and educating the patient by Lit Dixon RN, [facility] . [place] [employer] Other 03-30-2023 NoteCONSULTATION CONSULTATION DATE: 05/15/2022 TO: [...] nerve under fluoroscopic guidance.[facility] [id number] Evaluation note* Encounter Date Diagnosis Assessment Notes [...] Instructions material was published to portal Feb, manager intermediate current use of insulin (ICD-10 - Z79.4) Feb, BMI 45.0-49.9, adult (ICD-10 - Z68.42) Expect improvement with escalation of Ozempic to 2.0 mg subcu daily. Weight up today without decrease in insulin needs, no increases satiety [email or web address] Other 12-29-2022 NoteCONSULTATION CONSULTATION DATE: 02/13/2022 HISTORY [...] is able to walk unassisted. Medications include [place] 5/325 t.i.d., baclofen 10 mg q.h. s., [...] b.i.d. A referral will be sent to [facility] Neurosurgery to Dr. Moses Goetz for evaluation and patient is in complete agreement with this. We will continue to maintain her medications at this time, which will include Lyrica, [place] and baclofen. We will see the patient in three months' time, unless otherwise indicated. Patient was asked to call the office with an update once she has seen Neurosurgery.[facility] 12-31-2021 Evaluation note* Encounter Date Diagnosis Assessment Notes Treatment Notes Treatment Clinical Notes Dec, Type 2 diabetes mellitus with hyperglycemia (ICD-10 - E11.65) [email or web address] Other 09-21-2022 NoteCONSULTATION CONSULTATION DATE: 11/06/2021 HISTORY [...] secondary to her pain. Current medications include [place] 5/325 t.i.d., baclofen 10 mg q.h.s., Pamelor [...] agrees with this plan.[facility] [id number] Evaluation note* Encounter Date Diagnosis Assessment Notes [...] Instructions material was published to portal Oct, manager intermediate current use of insulin (ICD-10 - Z79.4) Oct, BMI 45.0-49.9, adult (ICD-10 - Z68.42) Expect improvement with escalation of Ozempic to 2.0 mg subcu daily. Weight slightly improving. hopeful for continue reduction to increase insulin sensitivity and decrease insulin needs. [email or web address] Other 06-16-2022 NoteCONSULTATION CONSULTATION DATE: 08/01/2021 HISTORY [...] burn but manageable. Her current medications are [place] 5/325 t.i.d., baclofen 10 mg q.h.s. and [...] move forward with aqua therapy at the [place] location. I did discuss vitamins with her as well as nutrition importance. Patient will be seen at the clinic in three months' time unless otherwise indicated. [facility] Signed and Approved by: ALICIA HERNANDEZ . 08/14/2021 16:24:00[facility]05-23-2022 Evaluation note* Encounter Date Diagnosis Assessment Notes Treatment Notes Treatment Clinical Notes June, Type 2 diabetes mellitus with hyperglycemia (ICD-10 - E11.65) [email or web address] Other 05-19-2022 Evaluation note* Encounter Date Diagnosis [...] Instructions material was published to portal June, FDC current use of insulin (ICD-10 - Z79.4) June, BMI 45.0-49.9, adult (ICD-10 - Z68.42) Expect improvement with escalation of Ozempic to 2.0 mg subcu daily. [email or web address] Other 10-06-2021 Evaluation note* Encounter Date Diagnosis [...] Prescriptions: None needed at this time. Nov, FDC current use of insulin (ICD-10 - Z79.4) [...] About Vitamin D material was published to [employer] [place] [employer] Other Evaluation noteNo InformationNort [employer] Other Evaluation noteNo assessment information available [facility] Work Phone: Evaluation note* Diagnosis Onset Date Resolution Status Type 2 diabetes mellitus with hyperglycemia acute [facility] Work Phone: Evaluation note* Diagnosis Abnormal stress test Other nonspecific abnormal cardiovascular system function study documented in this encounter [facility] Diagnosis Onset Date Resolution Status Hyperlipemia acute Hypertension acute Type 2 diabetes mellitus with hyperglycemia acute [facility] Work Phone: Evaluation note* Diagnosis Acute pain of left knee- Primary History of left knee replacement Left hip pain Pain in joint, pelvic region and thigh documented in this encounter [facility] HealthcareEvaluation note* Diagnosis Wellness examination- Primary Encounter for screening mammogram for malignant neoplasm of breast Heart murmur, systolic Preoperative clearance Unspecified pre-operative examination Primary hypertension (CMS/HCC) Unspecified essential hypertension BMI 50.0-59.9, adult (CMS/HCC) Mixed hyperlipidemia (CMS/HCC) Mixed hyperlipidemia Recurrent major depressive disorder, in partial remission (HCC) ([facility]) Type 2 diabetes mellitus with hyperglycemia, with long-term current use of insulin ([facility]) Primary hypertension ([facility]/HCC) Unspecified essential hypertension documented [facility] this encounter [facility] [...] knee replacement documented in this encounter [facility] HealthcareEvaluation note* Diagnosis Onset Date Resolution [...] deficiency, unspecified acute December 29, 024 9:39am [facility] Work Phone: Evaluation note* Diagnosis Wellness examination- Primary Encounter for screening mammogram for malignant neoplasm of breast Heart murmur, systolic Preoperative clearance Unspecified pre-operative examination Primary hypertension ([facility]/HCC) Unspecified essential hypertension BMI 50.0-59.9, adult ([facility]CC) Mixed hyperlipidemia ([facility]/HCC) Mixed hyperlipidemia Recurrent major depressive disorder, in partial remission (HCC) ([facility]) Type 2 diabetes mellitus with hyperglycemia, with long-term current use of insulin ([facility]) Acute pain of right shoulder- Primary Arthritis of right acromioclavicular joint documented in this encounter [facility] HealthcareEvaluation note* Diagnosis Wellness examination- Primary Encounter for screening mammogram for malignant neoplasm of breast Heart murmur, systolic Preoperative clearance Unspecified pre-operative examination Primary hypertension ([facility]CC) Unspecified essential hypertension BMI 50.0-59.9, adult ([facility]CC) Mixed hyperlipidemia ([facility]/HCC) Mixed hyperlipidemia Recurrent major depressive disorder, in partial remission (HCC) ([facility]) Type 2 diabetes mellitus with hyperglycemia, with long-term current use of insulin ([facility]) Bronchitis- Primary Bronchitis, not specified as acute or chronic Type 2 diabetes mellitus with diabetic mononeuropathy ([facility]) Wheezing documented in this encounter [facility]* Diagnosis Wellness examination- Primary Encounter for screening mammogram for malignant neoplasm of breast Heart murmur, systolic Preoperative clearance Unspecified pre-operative examination Primary hypertension ([facility]/HCC) Unspecified essential hypertension BMI 50.0-59.9, adult ([facility]/HCC) Mixed hyperlipidemia (CMS/HCC) Mixed hyperlipidemia Recurrent major depressive disorder, in partial remission (HCC) ([facility]) Type 2 diabetes mellitus with hyperglycemia, with long-term current use of insulin ([facility]) Acute pain of right shoulder- Primary Arthritis of right acromioclavicular joint Internal derangement of right shoulder History of claustrophobia documented in this encounter [facility] HealthcareEvaluation note* Diagnosis Wellness examination- Primary Encounter for screening mammogram for malignant neoplasm of breast Heart murmur, systolic Preoperative clearance Unspecified pre-operative examination Primary hypertension ([facility]) Unspecified essential hypertension BMI 50.0-59.9, adult ([facility]) Mixed hyperlipidemia ([facility]) Mixed hyperlipidemia Recurrent major depressive disorder, in partial remission (HCC) ([facility]) Type 2 diabetes mellitus with hyperglycemia, with long-term current use of insulin ([facility]) Type 2 diabetes mellitus with diabetic mononeuropathy, with long-term current use of insulin ([facility])- Primary Left leg cellulitis Morbid (severe) obesity due to excess calories ([facility]) Body mass index (BMI) 50.0-59.9, adult ([facility]) Type 2 diabetes mellitus with other skin complications ([facility]) Bipolar disorder, unspecified ([facility]) Bipolar disorder, unspecified documented in this encounter [facility] HealthcareEvaluation note* Diagnosis Wellness examination- Primary Encounter for screening mammogram for malignant neoplasm of breast Heart murmur, systolic Preoperative clearance Unspecified pre-operative examination Primary hypertension ([facility]) Unspecified essential hypertension BMI 50.0-59.9, adult ([facility]) Mixed hyperlipidemia ([facility]) Mixed hyperlipidemia Recurrent major depressive disorder, in partial remission (HCC) ([facility]) Type 2 diabetes mellitus with hyperglycemia, with long-term current use of insulin ([facility]) History of claustrophobia- Primary documented in this encounter [facility] HealthcareEvaluation note* Diagnosis Wellness examination- Primary Encounter for screening mammogram for malignant neoplasm of breast Heart murmur, systolic Preoperative clearance Unspecified pre-operative examination Primary hypertension ([facility]) Unspecified essential hypertension BMI 50.0-59.9, adult ([facility]) Mixed hyperlipidemia ([facility]) Mixed hyperlipidemia Recurrent major depressive disorder, in partial remission (HCC) ([facility]) Type 2 diabetes mellitus with hyperglycemia, with long-term current use of insulin ([facility]) Left leg cellulitis- Primary Type 2 diabetes mellitus with diabetic mononeuropathy, with long-term current use of insulin ([facility]) Skin rash Rash and other nonspecific skin eruption Opioid dependence, uncomplicated ([facility]) documented in this encounter [facility]* Diagnosis Wellness examination- Primary Encounter for screening mammogram for malignant neoplasm of breast Heart murmur, systolic Preoperative clearance Unspecified pre-operative examination Primary hypertension ([facility]/HCC) Unspecified essential hypertension BMI 50.0-59.9, adult ([facility]) Mixed hyperlipidemia ([facility]/HCC) Mixed hyperlipidemia Recurrent major depressive disorder, in partial remission (HCC) ([facility]) Type 2 diabetes mellitus with hyperglycemia, with long-term current use of insulin ([facility]) Mixed hyperlipidemia ([facility]) Mixed hyperlipidemia documented in this encounter [facility] HealthcareEvaluation note* Diagnosis Wellness examination- Primary Encounter for screening mammogram for malignant neoplasm of breast Heart murmur, systolic Preoperative clearance Unspecified pre-operative examination Primary hypertension ([facility]/HCC) Unspecified essential hypertension BMI 50.0-59.9, adult ([facility]) Mixed hyperlipidemia ([facility]/HCC) Mixed hyperlipidemia Recurrent major depressive disorder, in partial remission (HCC) ([facility]) Type 2 diabetes mellitus with hyperglycemia, with long-term current use of insulin ([facility]) Acute pain of right shoulder- Primary Arthritis of right acromioclavicular joint Biceps tendinitis, right documented in this encounter [facility] HealthcareEvaluation note* Diagnosis Wellness examination- Primary Encounter for screening mammogram for malignant neoplasm of breast Heart murmur, systolic Preoperative clearance Unspecified pre-operative examination Primary hypertension ([facility]) Unspecified essential hypertension BMI 50.0-59.9, adult ([facility]) Mixed hyperlipidemia ([facility]) Mixed hyperlipidemia Recurrent major depressive disorder, in partial remission (HCC) ([facility]) Type 2 diabetes mellitus with hyperglycemia, with long-term current use of insulin ([facility]) Biceps tendinitis, right- Primary Impingement of right shoulder documented in this encounter [facility] HealthcareEvaluation note* Diagnosis Endometrial cancer ([facility])- Primary Malignant neoplasm of corpus uteri, except isthmus BMI 50.0-59.9, adult ([facility]) documented in this encounter [facility]* Diagnosis Wellness examination- Primary Encounter for screening mammogram for malignant neoplasm of breast Heart murmur, systolic Preoperative clearance Unspecified pre-operative examination Primary hypertension ([facility]) Unspecified essential hypertension BMI 50.0-59.9, adult ([facility]) Mixed hyperlipidemia ([facility]) Mixed hyperlipidemia Recurrent major depressive disorder, in partial remission (HCC) ([facility]) Type 2 diabetes mellitus with hyperglycemia, with long-term current use of insulin ([facility]) Type 2 diabetes mellitus with diabetic mononeuropathy, with long-term current use of insulin ([facility])- Primary SOB (shortness of breath) Shortness of breath Wheezing Poorly-controlled hypertension ([facility]) documented in this encounter [facility] HealthcareEvaluation note* Diagnosis Wellness examination- Primary Encounter for screening mammogram for malignant neoplasm of breast Heart murmur, systolic Preoperative clearance Unspecified pre-operative examination Primary hypertension ([facility]) Unspecified essential hypertension BMI 50.0-59.9, adult ([facility]) Mixed hyperlipidemia ([facility]) Mixed hyperlipidemia Recurrent major depressive disorder, in partial remission (HCC) ([facility]) Type 2 diabetes mellitus with hyperglycemia, with long-term current use of insulin ([facility]) Acute non-recurrent pansinusitis- Primary documented in this encounter [facility] HealthcareEvaluation note* Diagnosis Wellness examination- Primary Encounter for screening mammogram for malignant neoplasm of breast Heart murmur, systolic Preoperative clearance Unspecified pre-operative examination Primary hypertension ([facility]) Unspecified essential hypertension BMI 50.0-59.9, adult ([facility]) Mixed hyperlipidemia ([facility]) Mixed hyperlipidemia Recurrent major depressive disorder, in partial remission (HCC) ([facility]) Type 2 diabetes mellitus with hyperglycemia, with long-term current use of insulin ([facility]) Acute pain of right shoulder- Primary Arthritis of right acromioclavicular joint Biceps tendinitis, right Partial nontraumatic tear of rotator cuff, right documented in this encounter [facility] HealthcareEvaluation note* Diagnosis Wellness examination- Primary Encounter for screening mammogram for malignant neoplasm of breast Heart murmur, systolic Preoperative clearance Unspecified pre-operative examination Primary hypertension ([facility]) Unspecified essential hypertension BMI 50.0-59.9, adult ([facility]) Mixed hyperlipidemia ([facility]) Mixed hyperlipidemia Recurrent major depressive disorder, in partial remission (HCC) ([facility]) Type 2 diabetes mellitus with hyperglycemia, with long-term current use of insulin ([facility]) Bursitis of left foot- Primary Acquired keratoderma Pain in left foot Pain in soft tissues of limb Difficulty walking Difficulty in walking documented in this encounter [facility] HealthcareEvaluation note* Diagnosis Onset Date Resolution [...] unspecified ac alfonso May 25, 2024 9:32am [facility] Work Phone: Evaluation note* Diagnosis Wellness examination- Primary Encounter for screening mammogram for malignant neoplasm of breast Heart murmur, systolic Preoperative clearance Unspecified pre-operative examination Primary hypertension ([facility]/HCC) Unspecified essential hypertension BMI 50.0-59.9, adult ([facility]/HCC) Mixed hyperlipidemia ([facility]/HCC) Mixed hyperlipidemia Recurrent major depressive disorder, in partial remission (HCC) ([facility]) Type 2 diabetes mellitus with hyperglycemia, with long-term current use of insulin ([facility]) Pre-op examination- Primary documented in this encounter [facility] HealthcareEvaluation note* Diagnosis Wellness examination- Primary Encounter for screening mammogram for malignant neoplasm of breast Heart murmur, systolic Preoperative clearance Unspecified pre-operative examination Primary hypertension ([facility]/HCC) Unspecified essential hypertension BMI 50.0-59.9, adult ([facility]/HCC) Mixed hyperlipidemia (CMS/HCC) Mixed hyperlipidemia Recurrent major depressive disorder, in partial remission (HCC) ([facility]) Type 2 diabetes mellitus with hyperglycemia, with long-term current use of insulin ([facility]) Acute laryngitis- Primary documented in this encounter [facility] HealthcareEvaluation note* Diagnosis Wellness examination- Primary Encounter for screening mammogram for malignant neoplasm of breast Heart murmur, systolic Preoperative clearance Unspecified pre-operative examination Primary hypertension (CMS/HCC) Unspecified essential hypertension BMI 50.0-59.9, adult ([facility]/HCC) Mixed hyperlipidemia (CMS/HCC) Mixed hyperlipidemia Recurrent major depressive disorder, in partial remission (HCC) ([facility]) Type 2 diabetes mellitus with hyperglycemia, with long-term current use of insulin ([facility]) Nonrheumatic aortic valve stenosis- Primary Arthritis of left acromioclavicular joint Preoperative clearance Unspecified pre-operative examination Primary hypertension (CMS/HCC) Unspecified essential hypertension Malignant neoplasm of endometrium (CMS/HCC) Malignant neoplasm of corpus uteri, except isthmus Stage 3a chronic kidney disease (HCC) (CMS/HCC) BMI 50.0-59.9, adult (CMS/HCC) documented in this encounter [facility] [...] essential hypertension documented in this encounter [facility] [...] with long-term current use of insulin (CMS/HCC) S/P arthroscopy of right shoulder- Primary [facility] with long-term current use of insulin (CMS/HCC) S/P arthroscopy of right shoulder- Primary documented in this encounter [facility] HealthcareEvaluation note* Diagnosis Wellness examination- Primary Encounter for screening mammogram for malignant neoplasm of breast Heart murmur, systolic Preoperative clearance Unspecified pre-operative examination Primary hypertension Unspecified essential hypertension BMI 50.0-59.9, adult (CMS-HCC) Mixed hyperlipidemia Mixed hyperlipidemia Recurrent major depressive disorder, in partial remission Type 2 diabetes mellitus with hyperglycemia, with long-term current use of insulin ([facility]) Acute pain of right shoulder- Primary Acute pain of right knee Primary hypertension Unspecified essential hypertension documented in this encounter [facility] HealthcareEvaluation note* Diagnosis Wellness examination- Primary Encounter for screening mammogram for malignant neoplasm of breast Heart murmur, systolic Preoperative clearance Unspecified pre-operative examination Primary hypertension Unspecified essential hypertension BMI 50.0-59.9, adult ([facility]) Mixed hyperlipidemia Mixed hyperlipidemia Recurrent major depressive disorder, in partial remission Type 2 diabetes mellitus with hyperglycemia, with long-term current use of insulin ([facility]) S/P arthroscopy of right shoulder- Primary documented in this encounter [facility] HealthcareEvaluation note* Diagnosis Wellness examination- Primary Encounter for screening mammogram for malignant neoplasm of breast Heart murmur, systolic Preoperative clearance Unspecified pre-operative examination Primary hypertension Unspecified essential hypertension BMI 50.0-59.9, adult ([facility]) Mixed hyperlipidemia Mixed hyperlipidemia Recurrent major depressive disorder, in partial remission Type 2 diabetes mellitus with hyperglycemia, with long-term current use of insulin ([facility]) Encounter for wellness examination- Primary Primary hypertension Unspecified essential hypertension Type 2 diabetes mellitus with hyperglycemia, with long-term current use of insulin ([facility]) History of uterine cancer Personal history of malignant neoplasm of other parts of uterus Morbid obesity ([facility]) Morbid obesity Mixed hyperlipidemia Mixed hyperlipidemia Encounter for screening mammogram for malignant neoplasm of breast Encounter for immunization Left hip pain Pain in joint, pelvic region and thigh Recurrent major depressive disorder, in partial remission FDC (current) use of insulin ([facility]) Chronic kidney disease, stage 2 (mild) Chronic pain disorder Chronic pain syndrome documented in this encounter [facility] HealthcareEvaluation note* Diagnosis Wellness examination- Primary Encounter for screening mammogram for malignant neoplasm of breast Heart murmur, systolic Preoperative clearance Unspecified pre-operative examination Primary hypertension Unspecified essential hypertension BMI 50.0-59.9, adult ([facility]) Mixed hyperlipidemia Mixed hyperlipidemia Recurrent major depressive disorder, in partial remission Type 2 diabetes mellitus with hyperglycemia, with long-term current use of insulin ([facility]) Encounter for wellness examination- Primary Primary hypertension Unspecified essential hypertension Type 2 diabetes mellitus with hyperglycemia, with long-term current use of insulin ([facility]) History of uterine cancer Personal history of malignant neoplasm of other parts of uterus Morbid obesity ([facility]) Morbid obesity Mixed hyperlipidemia Mixed hyperlipidemia Encounter for screening mammogram for malignant neoplasm of breast Encounter for immunization Left hip pain Pain in joint, pelvic region and thigh Recurrent major depressive disorder, in partial remission FDC (current) use of insulin ([facility]) Chronic kidney disease, stage 2 (mild) Chronic pain disorder Chronic pain syndrome Left leg cellulitis- Primary documented in this encounter [facility] HealthcareEvaluation note* Diagnosis Wellness examination- Primary Encounter for screening mammogram for malignant neoplasm of breast Heart murmur, systolic Preoperative clearance Unspecified pre-operative examination Primary hypertension Unspecified essential hypertension BMI 50.0-59.9, adult ([facility]) Mixed hyperlipidemia Mixed hyperlipidemia Recurrent major depressive disorder, in partial remission Type 2 diabetes mellitus with hyperglycemia, with long-term current use of insulin ([facility]) Encounter for wellness examination- Primary Primary hypertension Unspecified essential hypertension Type 2 diabetes mellitus with hyperglycemia, with long-term current use of insulin ([facility]) History of uterine cancer Personal history of malignant neoplasm of other parts of uterus Morbid obesity ([facility]) Morbid obesity Mixed hyperlipidemia Mixed hyperlipidemia Encounter for screening mammogram for malignant neoplasm of breast Encounter for immunization Left hip pain Pain in joint, pelvic region and thigh Recurrent major depressive disorder, in partial remission manager intermediate (current) use of insulin ([facility]) Chronic kidney disease, stage 2 (mild) Chronic pain disorder Chronic pain syndrome Acute left-sided low back pain with left-sided sciatica- Primary documented in this encounter [facility] HealthcareEvaluation note* Diagnosis Wellness examination- Primary Encounter for screening mammogram for malignant neoplasm of breast Heart murmur, systolic Preoperative clearance Unspecified pre-operative examination Primary hypertension Unspecified essential hypertension BMI 50.0-59.9, adult ([facility]) Mixed hyperlipidemia Recurrent major depressive disorder, in partial remission Type 2 diabetes mellitus with hyperglycemia, with long-term current use of insulin ([facility]) Encounter for wellness examination- Primary Primary hypertension Unspecified essential hypertension Type 2 diabetes mellitus with hyperglycemia, with long-term current use of insulin ([facility]) History of uterine cancer Personal history of malignant neoplasm of other parts of uterus Morbid obesity ([facility]) Morbid obesity Mixed hyperlipidemia Encounter for screening mammogram for malignant neoplasm of breast Encounter for immunization Left hip pain Pain in joint, pelvic region and thigh Recurrent major depressive disorder, in partial remission manager intermediate (current) use of insulin ([facility]) Chronic kidney disease, stage 2 (mild) Chronic pain disorder Chronic pain syndrome Sore throat Acute pharyngitis documented in this encounter [facility] HealthcareEvaluation note* Diagnosis Onset Date Resolution Status Admit Date Dietary counseling and surveillance acute November 18 10:47am Encounter for long-term (current) insulin use acute November 10:47am Hyperlipemia acute November 18, 2024 10:47am Hypertension acute November 18, 2024 10:47am Type 2 diabetes mellitus wit h hyperglycemia acute November 18 10:47am Vitamin D deficiency, unspecified acute November 18 10:47am [facility] Work Phone: Evaluation note* Diagnosis Wellness examination- Primary Encounter for screening mammogram for malignant neoplasm of breast Heart murmur, systolic Preoperative clearance Unspecified pre-operative examination Primary hypertension Unspecified essential hypertension BMI 50.0-59.9, adult ([facility]) Mixed hyperlipidemia Recurrent major depressive disorder, in partial remission Type 2 diabetes mellitus with hyperglycemia, with long-term current use of insulin ([facility]) Encounter for wellness examination- Primary Primary hypertension Unspecified essential hypertension Type 2 diabetes mellitus with hyperglycemia, with long-term current use of insulin ([facility]) History of uterine cancer Personal history of malignant neoplasm of other parts of uterus Morbid obesity ([facility]) Morbid obesity Mixed hyperlipidemia Encounter for screening mammogram for malignant neoplasm of breast Encounter for immunization Left hip pain Pain in joint, pelvic region and thigh Recurrent major depressive disorder, in partial remission manager intermediate (current) use of insulin (HCC) Chronic kidney disease, stage 2 (mild) Chronic pain disorder Chronic pain syndrome Need for vaccination- Primary Need for prophylactic vaccination and inoculation against unspecified single disease Pain of left femur Pain of left femur [facility] - [facility] Type Description Date Medical History RSD Medical History fibromyalgia Medical History hypertension Medical History type II diabetes Surgical History C section X3 Surgical History rotator cuff tear repair Surgical History back surgery x3 Surgical History knee surgery Surgical History hysteroscopy 05/30 Surgical History c5-c6 plates & screws Surgical History D&C 05/30 Hospitalization History see above [email or web address] Other History general Narrative - Reported* Type [...] replacement, Left 12/2020 Hospitalization History see above [email or web address] Other [facility] general Narrative - Reported* Type Description Date Medical History fibromyalgia Medical History hypertension Medical History type II diabetes Surgical History C section X3 Surgical History rotator cuff tear repair Surgical History back surgery x3 Surgical History knee surgery Surgical History hysteroscopy 4/14 Surgical History c5-c6 plates & screws Surgical History D&C / Surgical History knee replacement, Left 12/2020 Hospitalization History see above [email or web address] Other [facility] general Narrative - Reported* Type Description Date [...] bilatera l 2021 Hospitalization History see above [email or web address] Other [facility] general Narrative - Reported* Type Description Date [...] Hospitalization History see above Hospitalization History [facility]- Flu 02/2022 [email or web address] Other [facility] general Narrative - Reported* Type Description Date [...] Hospitalization History see above Hospitalization History [facility]- Flu 02/2022 [email or web address] Other History [facility] - [facility] Other InstructionsNot on filedocumented in this encounter [facility] filedocumented in this encounter [facility] SystemReason for referral (narrative)No reason for referral [facility] Work Phone: Reason for visit Narrative* Consultation (Routine) - Authorized Specialty Diagnoses / Procedures Referred By Contac t Referred To Contact Physical Therapy Diagnoses Biceps tendinitis, right Procedures RI OFFICE/OUTPATIENT NEW HIGH MDM 60 MINUTES Jr. Rica Rodriguez, DO [address] [place] [address] Phone: tel: fax: Sean Tineo, PT [address] [place] [address] Phone: tel: fax: Referral ID Status Reason Start Date Expiration Date Visits Requested Visits Authorized [id number] Authorized Consult and Treat 03/16/2024 09/12/2024 6 6 [facility] Healthcare Summary Purpose Family History No Family [...] w/ neuro claudication Se ptember 2024 8:13am Chief Complaint Admit Date lumbar stenosis w/ neuro claudication Se ptember 2024 8:13am DMN f/u November 18, 2024 10 :47am Reason for Visit Admit Date Dietary counseling and surveillance Octo 2024 10:47am Encounter for long-term (current) insuli n use November 18, 2024 10:47am Hyperlipemia November 18, 2024 10 :47am Hypertension November 18, 2024 10 :47am Type 2 diabetes mellitus with hyperglyce bobby November 18, 2024 10:47am Vitamin D deficiency, unspecified Octobe r 2024 10:47am Reason for Referral Reason EMG bilat lower extr emities Diagnosis 1 BMI 50.0-59.9, adult (Z68.43) [facility] Referring Provider First Name Martine Referring Provider Last Name Calera Referring Provider Specialty Nurse Pract itghulamr Referred Organization [facility] Referred Address [address] [place], [place],[address] Referred Provider Specialty Neurology Referral Priority Routine Reason evaluate and treat - tremors Diagnosis 1 BMI 50.0-59.9, adult (Z68.43) Referral Organization [facility] Referring Provider First Name Martine Referring Provider Last Name Tobias Referring Provider Specialty Nurse Pracalli itghulamr Referred Organization [facility] Referred Address [address] [place], [place],[phone] Referred Provider Specialty Neurology Referral Priority Routine Reason Evaluate and treat - osteoporosis Diagnosis 1 BMI 50.0-59.9, adult (Z68.43) Referral Organization [facility] Referring Provider First Name Martine Referring Provider Last Name Calera Referring Provider Specialty Nurse Pract itioner Referred Organization [facility] Referred Provider Jennifer Siu Referred Address [address] [place],[address] Referred Provider Specialty Nurse Pracphilipp segaloneyasmine Referral Priority Routine Additional Source Comments INFORMATION SOURCE (unrecogn ized section and content) DATE CREATED AUTHOR 08/12/2017 [facility] DATE CREATED AUTHOR AUTHOR'S ORGANIZ ATION 07/02/2022 [facility] DATE CREATED AUTHOR AUTHOR'S ORGANIZ ATION 05/31/2023 [facility] DATE CREATED AUTHOR AUTHOR'S ORGANIZ ATION 06/04/2023 [facility] DATE CREATED AUTHOR AUTHOR'S ORGANIZ ATION 06/30/[address] [facility] DATE CREATED AUTHOR AUTHOR'S ORGANIZ ATION 04/12/2024 [facility] DATE CREATED AUTHOR AUTHOR'S ORGANIZ ATION 06/25/2024 [facility] DATE CREATED AUTHOR AUTHOR'S ORGANIZ ATION 11/06/2024 [facility] DATE CREATED AUTHOR AUTHOR'S ORGANIZ ATION 11/21/2024 [facility] DATE CREATED AUTHOR AUTHOR'S ORGANIZ ATION 11/27/2024 [facility] d[facility] Specialists EPIC REASON FOR VISIT (unrecogniz ed section and content) Specialty Diagnoses / Procedures Referred By Alok carson Referred To Contact Diagnoses Abnormal stress test Abnormal stress test [R94.39] Procedures RI CATH PLMT L HRT & ARTS W/NJX & ANGIO IMG S&I RI CATH PLMT L HRT & ARTS W/NJX & ANGIO IMG S&I Left heart [place] [address] [place] [address] [facility] [address] [place] [address] Referral ID Status Reason Start Date Expiration Date Visits Re quested Visits Authorized [id number] 1 Reason Comments Pain Reason Onset [...] Comments ER Follow-up Reason Comments Back Pain Reason Comments Sore Throat Cough, congestion st arted last week. Reason Comments Leg Pain Care Teams (unrecognized sec tion and [...] , Primary Care Provider Active Start: April 07, [...] Active Start: 2023 End: May 22, 2023 Dry Cleaning Attendant Relationship Specialty Start Date End Date Pastora Kohler APRN - [employer]OX [employer] [address] [place] [address] PCP - General Nurse Practitioner [facility] 06/15/23 Team Status: Active Member Role [...] September 23, 2023 End: September 23, 2023 Dry Cleaning Attendant Relationship Specialty Start Date End Date Jennifer Cabrera MD [address] [place] [address] PCP - General Family Medicine 04/10/23 Pastora Kohler NP [address] [facility] [place] [address] PCP - [facility] 02/16/23 03/18/80 Pastora Kohler NP [address] [facility] [place] [address] Nurse Practitioner Family Medicine 04/10/23 Dry Cleaning Attendant Relationship Specialty Start Date End Date Jennifer Cabrera MD [address] [facility] [place] [place] [address] PCP - General Family Medicine 04/10/23 Pastora Kohler NP [address] [facility] [place] [address] PCP - [facility] 02/16/23 03/18/80 Pastora Kohler NP [address] [facility] [place] [address] Nurse Practitioner Family Medicine 04/10/23 Dry Cleaning Attendant Relationship Specialty Start Date End Date Jennifer Cabrera MD [address] [place] [address] PCP - General Family Medicine 04/10/23 Pastora Kohler NP [address] [place] [address] PCP - [facility] 02/16/23 03/18/80 Pastora Kohler NP [address] [place] [address] Nurse Practitioner Family Medicine 04/10/23 Dry Cleaning Attendant Relationship Specialty Start Date End Date Jennifer Cabrera MD [address] [place] [address] PCP - General Family Medicine 04/10/23 Pastora Kohler [employer] [address] [place] [address] PCP - [facility] 02/16/23 03/18/80 Pastora Kohler [employer] [address] [place] [address] Nurse Practitioner Family Medicine 04/10/23 Dry Cleaning Attendant Relationship Specialty Start Date End Date Jennifer Cabrera MD [address] [place] [address] PCP - General Family Medicine 04/10/23 Pastora Kolher NP [address] [place] [address] PCP [facility] 02/16/23 03/18/80 Pastora Kohler NP [address] [place] [address] Nurse Practitioner Family Medicine 04/10/23 Team Status: [...] December 30, 2023 End: December 30, 2023 Dry Cleaning Attendant Relationship Specialty Start Date End Date Jennifer Cabrera MD [address] [place] [address] PCP - General Family Medicine 04/10/23 Pastora Kohler NP [address] [place] [address] [facility] - [facility] 02/16/23 03/18/80 Pastora Kohler NP [address] [place] [address] Nurse Practitioner Family Medicine 04/10/23 Dry Cleaning Attendant Relationship Specialty Start Date End Date Jennifer Cabrera MD [address] [place] [address] PCP - General Family Medicine 04/10/23 Pastora Kohler NP [address] [place] [address] PCP - [facility] 02/16/23 03/18/80 Pastora Kohler NP [address] [place] [address] Nurse Practitioner Family Medicine 04/10/23 Dry Cleaning Attendant Relationship Specialty Start Date End Date Jennifer Cabrera MD [address] [place] [address] PCP - General Family Medicine 04/10/23 Pastora Kohler NP [address] [place] [address] PCP - [facility] 02/16/23 03/18/80 Pastora Kohler NP [address] [place] [address] [place] [address] Nurse Practitioner Family Medicine 04/10/23 Dry Cleaning Attendant Relationship Specialty Start Date End Date Jennifer Cabrera MD [address] [place] [address] [place] [address] PCP - General Family Medicine 04/10/23 Pastora Kohler [employer] [address] [place] [address] [place] [address] PCP - [facility] 02/16/23 03/18/80 Pastora Kohler NP [address] [place] [address] [place] [address] Nurse Practitioner Family Medicine 04/10/23 Dry Cleaning Attendant Relationship Specialty Start Date End Date Jennifer Cabrera MD [address] [place] [address] PCP - General Family Medicine 04/10/23 Pastora Kohler NP [address] [facility] [place] [address] PCP - [facility] 02/16/23 03/18/80 Pastora Kohler NP [address] [facility] [place] [address] Nurse Practitioner Family Medicine 04/10/23 Dry Cleaning Attendant Relationship Specialty Start Date End Date Jennifer Cabrera MD [address] [facility] [place] [address] PCP - General Family Medicine 04/10/23 Pastora Kohler NP [address] [facility] [place] [address] PCP - [facility] 02/16/23 03/18/80 Pastora Kohler NP [address] [facility] [place] [address] Nurse Practitioner Family Medicine 04/10/23 Dry Cleaning Attendant Relationship Specialty Start Date End Date Jennifer Cabrera MD [address] [place] [address] PCP - General Family Medicine 04/10/23 Pastora Kohler NP [address] [facility] [place] [address] PCP - [facility] 02/16/23 03/18/80 Pastora Kohler NP [address] [facility] [place] [address] Nurse Practitioner Family Medicine 04/10/23 Dry Cleaning Attendant Relationship Specialty Start Date End Date Jennifer Cabrera MD [address] [facility] [place] [address] PCP - General Family Medicine 04/10/23 Pastora Kohler NP [address] [place] [address] PCP - [facility] 02/16/23 03/18/80 Pastora Kohler NP [address] [facility] [place] [address] Nurse Practitioner Family Medicine 04/10/23 Team Status: Active Member Role Status Dates Pastora Kohler [employer]-C Primary Care Provider Activ e Team Status: Active Member Role Status Dates Pastora Kohler [employer]-C Primary Care Provider, Attending Provider Active Start: March 01, 2024 Team Status: Inactive Member Role Status Dates Lauren Torres PA-C Attending Provider Active S tart: March 10, 2024 End: March 10, 2024 Pastora Kohler [employer] Primary Care Provider Activ e Start: March 10, 2024 End: March 10, 2024 Dry Cleaning Attendant Relationship Specialty Start Date End Date Jennifer Cabrera MD [address] [place] [address] PCP - General Family Medicine 04/10/23 Pastora Kohler NP [address] [facility] [place] [address] PCP - [facility] 02/16/23 03/18/80 Pastora Kohler NP [address] [facility] [place] [address] Nurse Practitioner Family Medicine 04/10/23 Dry Cleaning Attendant Relationship Specialty Start Date End Date Jennifer Cabrera MD [address] [facility] [place] [address] PCP - General Family Medicine 04/10/23 Pastora Kohler NP [address] [facility] [place] [address] PCP - [facility] 02/16/23 03/18/80 Pastora Kohler NP [address] [facility] [place] [address] Nurse Practitioner Family Medicine 04/10/23 Dry Cleaning Attendant Relationship Specialty Start Date End Date Jennifer Cabrera MD [address] [place] [address] PCP - General Family Medicine 04/10/23 Pastora Kohler NP [address] [facility] [place] [address] PCP - [facility] 02/16/23 03/18/80 Pastora Kolher NP [address] [facility] [place] [address] Nurse Practitioner Family Medicine 04/10/23 Dry Cleaning Attendant Relationship Specialty Start Date End Date Judith Newman DO [address] [facility] [place] [address] PCP - General Family Medicine 02/19/22 Dry Cleaning Attendant Relationship Specialty Start Date End Date Judith Newman DO [address] [facility] [place] [address] PCP - General Family Medicine 02/19/22 Dry Cleaning Attendant Relationship Specialty Start Date End Date Jennifer Cabrera MD [address] [place] [address] PCP - General Family Medicine 04/10/23 Pastora Kohler NP [address] [place] [address] PCP - [facility] 02/16/23 03/18/80 Pastora Kohler NP [address] [place] [address] Nurse Practitioner Family Medicine 04/10/23 Dry Cleaning Attendant Relationship Specialty Start Date End Date Jennifer Cabrera MD [address] [place] [address] PCP - General Family Medicine 04/10/23 Pastora Kohler NP [address] [place] [address] PCP - [facility] 02/16/23 03/18/80 Pastora Kohler NP [address] [place] [address] Nurse Practitioner Family Medicine 04/10/23 Dry Cleaning Attendant Relationship Specialty Start Date End Date Jennifer Cabrera MD [address] [place] [address] PCP - General Family Medicine 04/10/23 Pastora Kohler NP [address] [place] [address] PCP - [facility] 02/16/23 03/18/80 Pastora Kohler NP [address] [facility] [place] [address] Nurse Practitioner Family Medicine 04/10/23 Dry Cleaning Attendant Relationship Specialty Start Date End Date Jennifer Cabrera MD [address] [facility] [place] [address] PCP - General Family Medicine 04/10/23 Pastora Kohler NP [address] [facility] [place] [address] PCP - [facility] 02/16/23 03/18/80 Pastora Kohler NP [address] [facility] [place] [address] Nurse Practitioner Family Medicine 04/10/23 Dry Cleaning Attendant Relationship Specialty Start Date End Date Jennifer Cabrera MD [address] [facility] [place] [address] PCP - General Family Medicine 04/10/23 Pastora Kohler NP [address] [facility] [place] [address] PCP - [facility] 02/16/23 03/18/80 Pastora Kohler NP [address] [facility] [place] [address] Nurse Practitioner Family Medicine 04/10/23 Team Status: Inactive Member Role Status Dates [facility] Galvez Primary Care Provider Activ e Start: May 25, 2024 End: May 25, 2024 Lili Burgos APRN Attending Provider Active Start: May 25, 2024 End: May 25, 2024 Team Status: Inactive Member Role Status Dates Lili Burgos APRN Attending Provider Active Start: May 25, 2024 End: May 25, 2024 Dry Cleaning Attendant Relationship Specialty Start Date End Date Jennifer Cabrera MD [address] [place] [address] PCP - General Family Medicine 04/10/23 Pastora Kohler NP [address] [place] [address] PCP - [facility] 02/16/23 03/18/80 Pastora Kohler NP [address] [place] [place] [address] Nurse Practitioner Family Medicine 04/10/23 Dry Cleaning Attendant Relationship Specialty Start Date End Date Jennifer Cabrera MD [address] [place] [address] PCP - General Family Medicine 04/10/23 Pastora Kohler NP [address] [place] [address] PCP - [facility] 02/16/23 03/18/80 Pastora Kohler NP [address] [place] [address] Nurse Practitioner Family Medicine 04/10/23 Dry Cleaning Attendant Relationship Specialty Start Date End Date Jennifer Cabrera MD [address] [place] [address] PCP - General Family Medicine 04/10/23 Pastora Kohler [employer] [address] [place] [address] PCP - [facility] 02/16/23 03/18/80 Pastora Kohler NP [address] [place] [address] Nurse Practitioner Family Medicine 04/10/23 Dry Cleaning Attendant Relationship Specialty Start Date End Date Jennifer Cabrera MD [address] [place] [address] PCP - General Family Medicine 04/10/23 Pastora Kohler NP [address] [place] [address] PCP - [facility] 02/16/23 03/18/80 Pastora Kohler NP [address] [place] [address] Nurse Practitioner Family Medicine 04/10/23 Dry Cleaning Attendant Relationship Specialty Start Date End Date Jennifer Cabrera MD [address] [place] [address] PCP - General Family Medicine 04/10/23 Pastora Kohler NP [address] [place] [address] PCP - [facility] 02/16/23 03/18/80 Pastora Kohler NP [address] [place] [address] Nurse Practitioner Family Medicine 04/10/23 Dry Cleaning Attendant Relationship Specialty Start Date End Date Jennifer Cabrera MD [address] [place] [address] PCP - General Family Medicine 04/10/23 Pastora Kohler NP [address] [place] [address] PCP - [facility] 02/16/23 03/18/80 Pastora Kohler NP [address] [place] [address] Nurse Practitioner Family Medicine 04/10/23 Dry Cleaning Attendant Relationship Specialty Start Date End Date Jennifer Cabrera MD [address] [place] [facility] [place] [address] PCP - General Family Medicine 04/10/23 Pastora Kohler NP [address] [facility] [place] [address] PCP - [facility] 02/16/23 03/18/80 Pastora Kohler NP [address] [facility] [place] [address] Nurse Practitioner Family Medicine 04/10/23 Dry Cleaning Attendant Relationship Specialty Start Date End Date Jennifer Cabrera MD [address] [facility] [place] [address] PCP - General Family Medicine 04/10/23 Pastora Kohler NP [address] [place] [address] PCP - [facility] 02/16/23 03/18/80 Pastora Kohler NP [address] [place] [address] Nurse Practitioner Family Medicine 04/10/23 Dry Cleaning Attendant Relationship Specialty Start Date End Date Jennifer Cabrera MD [address] [facility] [place] [address] PCP - General Family Medicine 04/10/23 Pastora Kohler NP [address] [facility] [place] [address] PCP - [facility] 02/16/23 03/18/80 Pastora Kohler NP [address] [facility] [place] [address] Nurse Practitioner Family Medicine 04/10/23 Dry Cleaning Attendant Relationship Specialty Start Date End Date Jennifer Cabrera MD [address] [place] [address] PCP - General Family Medicine 04/10/23 Pastora Kohler NP [address] [facility] [place] [address] PCP - [facility] 02/16/23 03/18/80 Pastora Kohler NP [address] [place] [address] Nurse Practitioner Family Medicine 04/10/23 Team Status: Active Member Role Status Dates Kaya Tomlinson RN Attending Provider Active Start: August 30, 2024 Team Status: Inactive Member Role Status Dates [facility] Coronado Attending Provider Active St art: October 31, 2024 End: October 31, 2024 [facility] Galvez Primary Care Provider Activ e Start: October 31, 2024 End: October 31, 2024 Dry Cleaning Attendant Relationship Specialty Start Date End Date Jennifer Cabrera MD [address] [place] [address] PCP - General Family Medicine 04/10/23 Pastora Kohler NP [address] [place] [address] PCP - [facility] 02/16/23 03/18/80 Pastora Kohler NP [address] [place] [address] Nurse Practitioner Family Medicine 04/10/23 Team Status: Inactive Member Role Status Dates Pastora Kohler NP-C Primary Care Provider Activ e Start: November 18, 2024 End: November 18, 2024 Lili Burgos APRN Attending Provider Active Start: November 18, 2024 End: November 18, 2024 Dry Cleaning Attendant Relationship Specialty Start Date End Date Jennifer Cabrera MD [address] [place] [address] PCP - General Family Medicine 04/10/23 Pastora Kohler NP [address] [place] [address] PCP - [facility] 02/16/23 03/18/80 Pastora Kohler NP [address] [place] [address] Nurse Practitioner Family Medicine 04/10/23 Dry Cleaning Attendant Relationship Specialty Start Date End Date Jennifer Cabrera MD [address] [place] [address] PCP - General Family Medicine 04/10/23 Pastora Kohler NP [address] [place] [address] PCP - [facility] 02/16/23 03/18/80 Pastora Kohler NP [address] [place] [address] Nurse Practitioner Family Medicine 04/10/23 Dry Cleaning Attendant Relationship Specialty Start Date End Date Jennifer Cabrera MD [address] [place] [address] PCP - General Family Medicine 04/10/23 Pastora Kohler NP [address] [place] [address] PCP - [facility] 02/16/23 03/18/80 Pastora Kohler NP [address] [place] [address] Nurse Practitioner Family Medicine 04/10/23 Goals (unrecognized [...] (New Bag - Prov ider: Gladys Frias, RN) 0.9 % sodium chloride infusion IntraVENous, [...] 1229, Intra-procedure(Cath) 1206 (Given - Provid er: MISTI, CARLOS) heparin (porcine) 4,000 Units, nitroGLYCERIN 300 mcg, verapamil (ISOPTIN) 2.5 mg 6.5 mL syringe (CANCELED) PRN, Starting on 06/30/23 at 1218, Intra-procedure(Cath) 1218 (Given - Provid er: Piotr Logan MD) iopamidol (ISOVUE-370) 76 % injection (CANCELED) PRN, Starting on 06/30/23 at 1227, Until 06/30/23 at 1229, Intra-procedure(Cath) 1227 (Given - Provid er: Piotr Logan MD) lidocaine 1 % injection (CANCELED) PRN, Starting on 06/30/23 at 1208, Until 06/30/23 at 1229, Intra-procedure(Cath) 1208 (Given - Provid er: Piotr Logan MD) midazolam (VERSED) injection (CANCELED) PRN, Starting on 06/30/23 at 1206, Until 06/30/23 at 1229, Intra-procedure(Cath) 1206 (Given - Provid er: CARLOS CHAPPELL) ondansetron (ZOFRAN) injection 4 mg 4 mg, IntraVENous, EVERY 6 HOURS PRN, Starting on 06/30/23 at 1238, Until Discontinued, Nausea, Recovery(Cath) [...] BE BASED ON THE PRIMARY CLINICAL RECORDS. [facility]. provides no warranty or guarantee of the accuracy or completeness of information in this document.
[2024-11-28 09:51] VITALS: BP 165/92; PULSE 72; TEMP 36.2; O2SAT 98
[2024-11-28 10:26] VITALS: BP 158/71; PULSE 88; O2SAT 95
[2024-11-28 10:27] VITALS: BP 167/72; PULSE 94; O2SAT 98
[2024-11-28] MEDS: IOHEXOL 240 MG/ML - 10 ML VIAL 24 MG INJ (10:28)
[2024-11-28] MEDS: LIDOCAINE HCL 2% 400 MG/20 ML MDV INJ (10:28)
[2024-11-28] MEDS: 0.9 % SODIUM CHLORIDE 10 ML SYRINGE - SALINE FLUSH INJ (10:28)
[2024-11-28] MEDS: BUPIVACAINE HCL 0.25% PF 25 MG/10 ML VIAL INJ (10:28)
[2024-11-28] MEDS: METHYLPREDNISOLONE ACETATE 80 MG/ML VIAL INJ (10:29)
--- NOTE | 2024-11-28 10:35 | P.ON_ITS ---
Date of procedure: 11/28/24 Pre-op diagnosis: Pain due to lumbar stenosis with neurogenic claudication Post-op diagnosis: same as pre-op Procedure: Procedure: Left L4-5, L5-S1 transforaminal epidural steroid injection Medications: Bupivacaine 0.25% 2cc, lidocaine 2% 1cc, depomedrol 80mg The patient was seen and examined in the preoperative holding area.? Informed consent was obtained and placed on the chart.? Patient was brought to the medical procedure unit and placed in the prone position where a timeout was completed verifying the correct patient, procedure site, position, and planned special equipment using sterile aseptic technique.? Under direct fluoroscopic visualization a 25-gauge Quincke tipped spinal needle was advanced to the designated neural foramen where contrast dye was injected to show adequate spread.? The needle was inserted at level left L4-5. There was no evidence of vascular or adverse uptake.? Epidural spread was appreciated.? The above- mentioned injectate was then placed in a 1.5 mL aliquot preceded by negative aspiration.? The needle was removed. The needle was inserted and the procedure repeated at level left L5-S1.? The surgery site was covered.? Patient was taken to the postprocedural recovery area and monitored for an appropriate length of time before found suitable for discharge in the accompaniment of a responsible adult. Anesthesia: Local Surgeon: Sebastian Cedillo Pathology: none sent Condition: stable Disposition: no change
== END 2024-11-28 10:35 | disposition home or self-care (01) ==
PROVIDERS: Visit Provider Anesthesiology
DX: M48.062 Spinal stenosis, lumbar region with neurogenic claudication (principal); M54.50 Low back pain, unspecified; E11.8 Type 2 diabetes mellitus with unspecified complications; Z79.85 Long-term (current) use of injectable non-insulin antidiabetic drugs
CPT/HCPCS: 36415; 64483; 64484; 82948; J0665; J1010; Q9966

== ENCOUNTER 2024-12-08 08:44 | Outpatient (OUT) | payer MEDICARE, SELFPAY ==
--- OUTSIDE RECORDS SUMMARY | 2024-11-29 11:45 | XMS_ITS | Encounter Summary ---
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 Name Role Phone Jennifer Christine MD Primary Care Provider [phone] Psatora Kohler CLINIC PHYSICIAN Unavailable [phone] Pastora Kohler CLINIC PHYSICIAN Unavailable [phone] Encounter Details DateTypeDepartmentCare Team (Latest Contact Info)Txpvvjahdhe29/14/2025 11:45 AM EDTAncillary Procedure [facility] [address] [address] Palpable mass of soft tissue of lower extremity Social History Tobacco UseTypesPacks/DayYears UsedDateSmoking Tobacco: NeverSmokeless Tobacco: NeverAlcohol UseStandard Drinks/WeekCommentsNot Currently0 (1 standard drink = 0.6 oz pure alcohol)caffeine: 2-3 cups per dayPHQ-2AnswerDate RecordedPatient Health Questionnaire-2 Ofocu624CommentsUnknownSex and Gender InformationValueDate RecordedSex Assigned at BirthNot on fileLegal SexFemale 04/30/2022 6:56 PM EDTGender IdentityNot on fileSexual OrientationNot on file documented as of this encounter Plan of Treatment Not on file documented as of this encounter Procedures Procedure NamePriorityDate/TimeAssociated DiagnosisCommentsUS SOFT TISSUE PALPABLE WTIGFwiygwa30/14/2025 11:48 AM EDT Palpable mass of soft tissue of lower extremity documented in this encounter Results * US Soft Tissue Palpable Mass (11/29/2024 11:48 AM EDT)Anatomical Region LateralityModalityRightUltrasoundSpecimen (Source)Anatomical Location / LateralityCollection Method / VolumeCollection TimeReceived Time11/30/2024 1:05 PM EDT Impressions 11/30/2024 1:06 PM EDT Impression: No focal mass or lesion at the area of concern sonographically. Subcutaneous edema. ELECTRONICALLY SIGNED BY: Que Cruz MD Narrative 11/30/2024 1:06 PM EDT US SOFT TISSUE PALPABLE MASS History: Palpable mass of the left leg. Technique: Sonography of the area of concern was performed. Comparison: None Result: Limited ultrasound performed at the area of concern labeled left thigh palpable mass. There is no focal mass or lesion at this site. Areas of subcutaneous edema. Procedure Note Que Cruz MD - 11/30/2024 US SOFT TISSUE PALPABLE MASS History: Palpable mass of the left leg. Technique: Sonography of the area of concern was performed. Comparison: None Result: Limited ultrasound performed at the area of concern labeled left thighpalpable mass. There is no focal mass or lesion at this site. Areas ofsubcutaneous edema. IMPRESSION: Impression: No focal mass or lesion at the area of concern sonographically.Subcutaneous edema. ELECTRONICALLY SIGNED BY: Que Cruz MD Authorizing ProviderResult TypeResult StatusChristy A Jose F NPIMG US PROCEDURESFinal Result documented in this encounter Visit Diagnoses Diagnosis Palpable mass of soft tissue of lower extremity documented in this encounter Additional Health Concerns AssessmentNoted TimePHQ-9 Depression Total Score: 107 12:00 PM EDT documented as of this encounter Care Teams Team MemberRelationshipSpecialtyStart DateEnd Date Jennifer Christine MD [address] [place] [address] PCP - GeneralFamily Medicine04/10/23 Pastora Kohler NP [address] [place] [address] PCP - [facility]/ Pastora Kohler NP [address] [facility] [place] [address] Nurse PractitionerFamily Medicine04/10/23documented as of this encounter
--- OUTSIDE RECORDS SUMMARY | 2024-12-08 08:48 | XMS_ITS | Clinical Summary ---
Author Organization [facility] tem Address [id number] [address] [place] [address] Care Team Providers Care Licensing Services Clerk Name Role Phone Pastora Kohler APRN-NUTRITION HELPER Primary Care Pro vider Allergies No known active allergies Medications * This document contains information received from the source organization and may not represent a complete record from that organization. MedicationSigDispense QuantityRefillsLast FilledStart DateEnd DateStatus metFORMIN (GLUCOPHAGE) 500 mg tablet Take 1 tablet (500 mg total) by mouth in the morning. 2 TABS IN AM AND 1 TAB IN EVENING.Active ibuprofen (ADVIL,MOTRIN) 600 mg tablet Indications:osteoarthritis,painTake 1 tablet (600 mg total) by mouth 3 (three) times a day as needed for pain Indications: joint damage causing pain and loss of function, pain.Active atorvastatin (LIPITOR) 40 mg tablet 08/04/2019Active OZEMPIC 1 mg/dose (2 mg/1.5 mL) pen injector 05/07/2020ctive oxyCODONE-acetaminophen (PERCOCET) 7.5-325 mg per tablet 01/07/2023ctive pregabalin (LYRICA) 75 mg capsule Take 1 capsule (75 mg total) by mouth in the morning and 1 capsule (75 mg total) before bedtime.Active metoprolol tartrate (LOPRESSOR) 25 mg tablet Take 1 tablet (25 mg total) by mouth in the morning and 1 tablet (25 mg total) before bedtime.Active losartan-hydroCHLOROthiazide (HYZAAR) 50-12.5 mg per tablet Take 1 tablet by mouth in the morning.Active tiZANidine (ZANAFLEX) 4 mg tablet Take 1 tablet (4 mg total) by mouth every 6 (six) hours as needed for muscle spasms.Active empagliflozin-metFORMIN (SYNJARDY XR) 12.5-1,000 mg tablet, IR & ER, biphasic 24hr Take by mouth in the morning.Active insulin degludec (TRESIBA FLEXTOUCH U-100 SUBQ) Inject 52 mg under the skin in the morning.Active ERGOCALCIFEROL, VITAMIN D2, ORAL Take by mouth.Active hydrOXYzine (VISTARIL) 25 mg capsule Take 1 capsule (25 mg total) by mouth 4 (four) times a day as needed for anxiety. 120 capsule 5Active buPROPion XL (WELLBUTRIN XL) 300 mg 24 hr tablet Indications:Severe episode of recurrent major depressive disorder, without psychotic features (CMS-HCC)Take 1 tablet (300 mg total) by mouth every morning. 100 tablet 5Active nortriptyline (PAMELOR) 50 mg capsule Indications:Severe episode of recurrent major depressive disorder, without psychotic features (CMS-HCC)Take 3 capsules (150 mg total) by mouth nightly. 270 capsule 5Active ARIPiprazole (ABILIFY) 15 mg tablet Indications:Severe episode of recurrent major depressive disorder, without psychotic features (CMS-HCC)Take 1 tablet (15 mg total) by mouth in the morning. 30 tablet 1115Active nortriptyline (PAMELOR) 50 mg capsule Indications:Severe episode of recurrent major depressive disorder, without psychotic features (CMS-HCC)Take 3 capsules (150 mg total) by mouth nightly. 270 capsule /02/2024Discontinued(Reorder) ARIPiprazole (ABILIFY) 10 mg tablet Indications:Severe episode of recurrent major depressive disorder, without psychotic features (CMS-HCC)Take 1 tablet (10 mg total) by mouth in the morning. 90 tablet 30851Discontinued(Reorder) Active Problems ProblemNoted DateDiagnosed DateEndometrial hhbetu664BMI 50.0-59.9, adult 4Cellulitis of right lower ymbunvqgu21/21/2017Chronic pain disorder 11/13/2016Generalized anxiety cippnuzi48/28/2017Severe episode of recurrent major depressive disorder, without psychotic pecnleml04/28/2017 Encounters * This document contains information received from the source organization and may not represent a complete record from that organization. DateTypeDepartmentCare TganVkhvuivhtuf92/01/8400Bhkwka11/23/2025 6:41 PM EDT - 09/07/2024 8:09 PM EDTEmergency [facility] [address] [place] [address] Spike Gutierrez MD Cellulitis of left lower extremity (Primary Dx) Discharge Disposition: Home09/07/2024Travelfrom Last 3 Months Immunizations ImmunizationAdministration DatesNext DueCOVID-19, mRNA, LNP-S, PF, 100mcg/0.5mL Dose06/12/2020,05/15/2020Influenza, Gibtfzwyumw03/01/2017 Family History Medical HistoryRelationNameCommentsOvarian cancerSisterRelationNameStatus CommentsSister Social History Tobacco UseTypesPacks/DayYears UsedDateSmoking Tobacco: FormerCigarettesQuit: 06/18/2010Smokeless Tobacco: Never Tobacco Cessation:Counseling Given: Not Answered Alcohol UseStandard Drinks/WeekCommentsNever0 (1 standard drink = 0.6 oz pure alcohol)ChildcareAnswerDate IunaqvdsEnknnvujjPqywowo58/05/2019EmploymentAnswer Date TuyuokebQldccotiitHqvijjl33/05/2019Hunger ScreeningAnswerDate Recorded Within the past 12 months we worried whether our food would run out before we got money to buy more.Never True11/16/2024Within the past 12 months the food we bought just didn't last and we didn't have money to get more.Never True 11/16/2024Purpose - LifeAnswerDate RecordedPurpose and direction in lifeUnknown 1CommentsNoSex and Gender InformationValueDate RecordedSex Assigned at BirthNot on fileLegal KouXsmuxa28/06/2015 11:42 AM EDTGender IdentityNot on fileSexual OrientationNot on file Last Filed Vital Signs Vital SignReadingTime TakenCommentsBlood Uiujdaii290/6210 9:06 AM EDT Cvdww9050 9:06 AM GZZCvkobqefgzs53.8 ??C (98.3 ??F)09/07/2024 6:47 PM EDTRespiratory Xtsw033809/07/2024 7:40 PM EDTOxygen Jwlsgwibqc69%09/07/2024 7:40 PM EDTInhaled Oxygen Concentration--Dhtcof815.2 kg (320 lb)09/07/2024 6:47 PM TIZKfjrqa971 cm (5' 3 )09/07/2024 6:47 PM EDTBody Mass Index56.69009/07/2024 6:47 PM EDT Plan of Treatment Health MaintenanceDue DateLast DoneCommentsDepression Ljmkdzbyv17/28/1973Adult BMI Follow Up Plan1978DTaP,Tdap and Td Vaccines (1 - Tdap)1979Zoster (Shingles) Vaccine (1 of 2)1979COVID-19 Vaccine (5 - Moderna risk 2023- season), 11/21/2022, 06/12/2020, Additional history exists Influenza Crdzyfa68, 11/21/2022, 02/26/2022, Additional history existsAdult BMI Ueagqrndm71Tobacco Agdcigadh02/01/2026 11/16/2024Pap Smear, 06/15/2023 Medical Devices Not on file Procedures Procedure NamePriorityDate/TimeAssociated DiagnosisCommentsEXTRA TUBES SST TOP Vlvprtx8209/07/2024 6:57 PM EDT EXTRA TUBES BLUE HJXTnpghsk55/23/2025 6:57 PM EDT EXTRA NYYMACdgbbax50/23/2025 6:57 PM EDT LACTATE W/ IQMBQHAUIO11/23/2025 6:57 PM EDT COMPREHENSIVE METABOLIC TTMZAQNVX36/23/2025 6:57 PM EDT CBC WITH AUTO GXWVDGUFQBKJBOLP90/23/2025 6:57 PM EDT from Last 3 Months Results * SST TOP (09/07/2024 6:57 PM EDT)ComponentValueRef RangeTest MethodAnalysis TimePerformed AtPathologist SignatureExtra TubeAuto Rlqzvhyq14/23/2025 8:03 PM EDTPKettering Health (Source)Anatomical Location / LateralityCollection Method / VolumeCollection TimeReceived TimeBloodVenous blood / Fclmtrv6909/07/2024 6:57 PM EDT09/07/2024 7:02 PM EDT Narrative Authorizing ProviderResult TypeResult StatusSpike CUMMINS BLOOD ORDERABLES Final ResultPerforming OrganizationAddressCity/State/ZIP CodePhone Number [address] [place] [address], [place] * Light Blue Top (09/07/2024 6:57 PM EDT)ComponentValueRef RangeTest Method Analysis TimePerformed AtPathologist SignatureExtra TubeAuto Resulted 09/07/2024 8:03 PM EDTPKettering Health (Source) Anatomical Location / LateralityCollection Method / VolumeCollection Time Received TimeBloodVenous blood / Yoelogd9109/07/2024 6:57 PM EDT09/07/2024 7:02 PM EDT Narrative Authorizing ProviderResult TypeResult StatusSpike CUMMINS BLOOD ORDERABLES Final ResultPerforming OrganizationAddressCity/State/ZIP CodePhone Number [address] [place] [address], [place] * Lactate w/ Reflex (09/07/2024 6:57 PM EDT)ComponentValueRef RangeTest Method Analysis TimePerformed AtPathologist SignatureLACTATE W/REFLEX1.30.4 - 2.0 mmol/L09/07/2024 7:22 PM EDAVITA HEALTH SYSTEMpecimen (Source)Anatomical Location / LateralityCollection Method / VolumeCollection TimeReceived TimeBloodVenous blood / UnknownVenipuncture / Cwfmxjv7809/07/2024 6:57 PM EDT09/07/2024 7:02 PM EDT Narrative [facility] - 09/07/2024 7:22 PM EDT Result did not trigger repeat Lactate, re-order if needed. Authorizing ProviderResult TypeResult StatusPamook Gutierrez MDLAB BLOOD ORDERABLES Final ResultPerforming OrganizationAddressCity/State/ZIP CodePhone Number [facility] [address] [place] [address], * (ABNORMAL) CBC auto differential (09/07/2024 6:57 PM EDT)ComponentValueRef RangeTest MethodAnalysis TimePerformed AtPathologist SignatureWBC9.64 - 11 x10E9/L09/07/2024 7:15 PM [facility]ABIL[facility]ATIONRBC Count4.14 3.8 - 5.2 X10E12/L09/07/2024 7:15 PM [facility] Fkdurbifox90.3(L)11.7 - 15.5 g/dL09/07/2024 7:15 PM [facility]ABIL[facility]ATIONHematocrit34.2(L)35 - 47 %09/07/2024 7:[address] [facility] CENTERMCV8380 - 100 fL09/07/2024 7:[address] [facility] CENTERMCH27.227 - 34 pg09/07/2024 7:15 PM [facility]ABIL[facility]ATIONMCHC33.032 - 36 g/dL09/07/2024 7:15 PM [facility] REHABILITATIONRDW17.0(H)11.5 - 15 %09/07/2024 7:15 PM [facility] REHABILITATIONPlatelet Kspyc388258 - 450 X10E9/L09/07/2024 7:15 PM EDTPHOLMES COUNTY JOEL POMERENE MEMORIAL HOSPITALMPV7.47 - 12 fL09/07/2024 7:15 PM EDT [facility]ITALNeutrophils %71.0%09/07/2024 7:15 PM EDT [facility]ITALLymphocytes %19.6%09/07/2024 7:15 PM EDT [facility] HOSPITALMonocytes %6.7%09/07/2024 7:15 PM EDT [facility] HOSPITALEosinophils %2.2%09/07/2024 7:15 PM EDT [facility]ITALBasophils %0.5%09/07/2024 7:15 PM EDT [facility]ITALNeutrophils Absolute (A)6.8(H)1.5 - 6.6 10*3/uL09/07/2024 7:15 PM EDTPHOLMES COUNTY JOEL POMERENE MEMORIAL HOSPITALLymphocytes Absolute1.91.0 - 3.5 10*3/uL09/07/2024 7:15 PM EDTPHOLZER HEALTH SYSTEM HOSPITALMonocytes Absolute0.60.0 - 0.9 10*3/uL09/07/2024 7:15 PM EDTPHOLMES COUNTY JOEL POMERENE MEMORIAL HOSPITALEosinophils Absolute0.20.0 - 0.4 10*3/uL09/07/2024 7:[address] [facility] CENTERBasophils Absolute0.00.0 - 0.2 10*3/uL09/07/2024 7:[address] [facility] MEDICAL CENTERDifferential TypeAUTOMATED KVTMGMPLJAZZ31/23/2025 7:15 PM EDAVITA HEALTH SYSTEMpecimen (Source)Anatomical Location / LateralityCollection Method / VolumeCollection TimeReceived TimeBloodVenous blood / UnknownVenipuncture / Ctppuge3509/07/2024 6:57 PM EDT09/07/2024 7:01 PM EDT Narrative Authorizing ProviderResult TypeResult StatusSpike Gutierrez MDLAB BLOOD ORDERABLES Final ResultPerforming OrganizationAddressCity/State/ZIP CodePhone Number [facility] [address] [place] [address], * (ABNORMAL) Comprehensive metabolic panel (09/07/2024 6:57 PM EDT)Component ValueRef RangeTest MethodAnalysis TimePerformed AtPathologist SignatureSODIUM 585687 - 146 mmol/L09/07/2024 7:[address] [facility] POTASSIUM4.73.5 - 5.0 mmol/L09/07/2024 7:[address] [facility] CENTERCHLORIDE9998 - 109 mmol/L09/07/2024 7:[address] [facility] CENTERCARBON OGMMAMH4026 - 32 mmol/L09/07/2024 7:24 PM EDT [facility]ITALANION GAP95 - 15 mmol/L09/07/2024 7:[address] [facility] MEDICAL CENTERBLOOD UREA NSIVWGMY635 - 27 mg/dL 09/07/2024 7:24 PM [facility] REHABILITATIONCREATININE0.740.40 - 1.00 mg/dL09/07/2024 7:24 PM [facility]ABILITATIONComment: METHOD TRACEABLE TO IDMS FVZSPCJRTFBGFMS587(H)65 - 99 mg/dL09/07/2024 7:24 PM [facility] REHABILITATIONCALCIUM9.38.5 - 10.5 mg/dL09/07/2024 7:24 PM [facility] REHABILITATIONTOTAL PROTEIN7.66.0 - 8.0 g/dL 09/07/2024 7:24 PM [facility] FOR REHABILITATIONALBUMIN3.63.2 - 5.3 g/dL09/07/2024 7:24 PM [facility] REHABILITATIONALKALINE HZZQNLCBOBY66381 - 130 U/L09/07/2024 7:24 PM [facility]HABIL[facility]ATIONAST24<=41 U/L09/07/2024 7:24 PM [facility] ALT33(H)<=31 U/L09/07/2024 7:24 PM [facility] BILIRUBIN,TOTAL0.50.3 - 1.2 mg/dL09/07/2024 7:24 PM [facility] REHABILITATIONEGFR Non-Race Fdlyqfpch74>=60 ml/min/1.73sq.m009/07/2024 7:24 PM [facility]ABILITATIONComment: eGFR not reported due to non-numeric value for Creatinine. Reported eGFR is based on the CKD-EPI 2020 equation that does not use a race coefficient. Specimen (Source)Anatomical Location / LateralityCollection Method / Volume Collection TimeReceived TimeBloodVenous blood / UnknownVenipuncture / Unknown 09/07/2024 6:57 PM EDT09/07/2024 7:01 PM EDT Narrative Authorizing ProviderResult TypeResult StatusSpike CUMMINS BLOOD ORDERABLES Final ResultPerforming OrganizationAddressCity/State/[facility] CodePhone Number [facility] [address] [place] [address], from Last 3 Months Insurance Advance Directives * Full Code (Latest Code Status on File) Date ActivatedDate RmfjkqlswtqXoiquxlg47/21/2017 2:11 12/08/2016 12:13 PM Care Teams Team MemberRelationshipSpecialtyStart DateEnd Date Pastora Kohler APRN-NUTRITION HELPER [address] [place] [address] PCP - GeneralInternal Medicine09/07/24
--- OUTSIDE RECORDS SUMMARY | 2024-12-08 08:48 | XMS_ITS | Clinical Summary ---
Author Organization [facility] Address [address], [address] [place] [address] Care Team Providers Care Telegraph And Teletype Operator Name Role Phone Pastora Kohler APRN - MEDICAL DOSIMETRIST [facility] Allergies No known active allergies Medications MedicationSigDispense QuantityRefillsLast FilledStart DateEnd DateStatus ARIPiprazole (ABILIFY) 15 MG tablet Take 1 tablet by mouth every 24 hours01/28/2023ctive atorvastatin (LIPITOR) 40 MG tablet Take 1 tablet by mouth at otcoaxm1208/04/2019Active buPROPion (WELLBUTRIN XL) 300 MG extended release tablet Take 1 tablet by mouth Every Day09/23/2022ctive blood glucose test strips (ACCU-CHEK GUIDE) strip 1 each 2 times daily10/23/2022ctive hydrOXYzine pamoate (VISTARIL) 25 MG capsule Take 1 capsule by mouth 4 times daily as ayahzu4104/22/2023ctive losartan-hydroCHLOROthiazide (HYZAAR) 50-12.5 MG per tablet Take 1 tablet by mouth daily05/24/2023ctive metoprolol tartrate (LOPRESSOR) 25 MG tablet Take 1 tablet by mouth 2 times daily (with meals)12/25/2022ctive nortriptyline (PAMELOR) 50 MG capsule Take 2 capsules by mouth ysojxcy7603/26/2023ctive pregabalin (LYRICA) 75 MG capsule Take 1 capsule by mouth 2 times daily.Active semaglutide, 2 MG/DOSE, (OZEMPIC, 2 MG/DOSE,) 8 MG/3ML SOPN sc injection Inject 2 mg into the skin once a weekActive Insulin Degludec 100 UNIT/ML SOLN Inject 56 Units into the skin dailyActive Alcohol Swabs PADS Active FIASP FLEXTOUCH 100 UNIT/ML SOPN Inject into the skin 4 times daily (after meals and at bedtime) Inject per sliding scale04/07/2023ctive lisinopril-hydroCHLOROthiazide (PRINZIDE;ZESTORETIC) 20-12.5 MG per tablet Take 1 tablet by mouth dailyActive topiramate (TOPAMAX) 100 MG tablet 1 tabletActive omeprazole 20 MG EC tablet Take 1 tablet by mouth dailyActive tiZANidine (ZANAFLEX) 2 MG tablet Take 1 tablet by mouth at bedtimeActive NONFORMULARY Something she takes at night.Active VITAMIN D PO Take 1 tablet by mouth dailyActive nystatin (MYCOSTATIN) 535712 UNIT/GM powder Indications:Tinea corporisApply 2 times daily as needed to affected skin areas 60 g 5Active Active Problems ProblemNoted DateDiagnosed DateHistory of 3 ocqnoqcd09/11/2024hronic midline low back pain without qmdoxril94/11/2024Sleep apnea07/28/2023ortic valve ymxgauvv98/11/2024oorly controlled diabetes oeqexoqr46/11/2024oorly- controlled abpyqbdfmonr28/11/2024Malignant neoplasm of rslnazumywf32/11/2024 Endometrial jprtym9006/03/2023 Cancer Staging: Clinical stage from 07/28/2023:FIGO Stage IA(cT1a, cN0, cM0) - Signed by Marshall Emmanuel MD on 08/03/2023 Arthritis of left acromioclavicular joint11/03/2022Internal derangement of left knee11/03/2022rtificial knee joint runxbsm2411/03/2022Spinal stenosis of lumbar wtpqzn2811/03/2022ifficulty nwpdeji7311/03/2022isplacement of lumbar intervertebral disc without ubkatynllr95/18/2023Exfoliative dermatitis due to fusqyrxgq41/18/2023astroesophageal reflux disease without ghjbalmctzp57/18/2023 Left hand /18/2023Mixed nlnjsycfdjzpfq47/18/2023 Overview (06/12/2023): Last Assessment & Plan: Controlled on lipitor. Muscle pain11/03/20229864Mlrmntz73/18/2023Osteoarthritis of knee11/03/2022Recurrent major depressive disorder, in partial hponyutcu86/18/2023 Overview (06/12/2023): Last Assessment & Plan: On abilify, wellbutrin, hydroxyzine Type 2 diabetes mellitus with hyperglycemia, with long-term current use of qlntkyh6611/03/2022 Overview (06/12/2023): Last Assessment & Plan: She is managed by [facility]. A1c is high and advised she needs to get this under control and discussed this being a risk factor for her surgery. She is taking multiple medications and recently started on ozempic. Says her BS are better now. On metformin, tresiba, and ozempic. Cellulitis of right lower aunfoksbu65/21/2017Chronic pain lyikanjv06/28/2017 Generalized anxiety inxdpysv96/28/2017Severe episode of recurrent major depressive disorder, without psychotic dllmuguj53/28/2017Hip pain01/08/2016 Carpal tunnel pvznsinp66/17/2012Cervical oolwielqzpt64/07/2009Primary jevwfxchwhus26/07/2009 Overview (06/12/2023): Last Assessment & Plan: Controlled on hyzaar and metoprolol Disorder of rotator cuff02/23/2008 Resolved Problems ProblemNoted DateDiagnosed DateResolved DatePost-operative state07/28/2023 08/27/2023 Encounters DateTypeDepartmentCare VnrqAonwcjbnwxl19/24/2025 8:30 AM EDTOffice Visit [facility] [address] [place] [address] Jenna Andrade PA-C History of uterine cancer (Primary Dx)from Last 3 Months Immunizations ImmunizationAdministration DatesNext DueInfluenza Virus Otyhouc9211/21/2022, 02/26/2022,12/09/2016,10/17/2016,01/03/2015,01/03/2014 Family History Medical HistoryRelationNameCommentsCerebral palsyBrother 1MarkNo Known Problems Brother 2Heart DiseaseMotherHeart DiseaseSister 1ChrisNo Known ProblemsSister 2 No Known ProblemsSister 3RelationNameStatusCommentsBrother 1MarkAliveBrother 2 AliveFatherDeceasedMotherDeceasedSister 1ChrisDeceasedSister 2AliveSister 3Alive Social History Tobacco UseTypesPacks/DayYears UsedDateSmoking Tobacco: FormerCigarettesQuit: 06/20/2010Passive Smoke Exposure: NeverSmokeless Tobacco: Never Tobacco Cessation:Counseling Given: Not Answered Alcohol UseStandard Drinks/WeekCommentsNot Asked0 (1 standard drink = 0.6 oz pure alcohol)NoInterpersonal Safety Domain Source: IP Abuse ScreeningAnswerDate RecordedPhysical geouwKybilq11/30/2024Verbal errsnDdmgqq01/30/2024Emotional wdauiXxupps27/30/2024Financial zswceNblrrn50/30/2024Sexual auzkcEeukbo31/30/2024 CommentsNoSex and Gender InformationValueDate RecordedSex Assigned at BirthNot on fileLegal ShaTjzzub36/10/2013 2:40 PM ESTGender IdentityNot on file Sexual OrientationNot on file Last Filed Vital Signs Vital SignReadingTime TakenCommentsBlood Xyzfqcuo414/8809/08/2024 8:34 AM EDT Xcqmq215109/08/2024 8:16 AM ETBWwezhzrtjbp86.7 ??C (98.1 ??F)09/08/2024 8:16 AM EDTRespiratory Euwl259407/29/2023 8:23 AM EDTOxygen Icehfayfpf52%09/08/2024 8:16 AM EDTInhaled Oxygen Concentration--Amnuda934 kg (291 lb)09/08/2024 8:16 AM EDT Gslzjh572 cm (5' 3 )09/08/2024 8:16 AM EDTBody Mass Index51.55009/08/2024 8:16 AM EDT Plan of Treatment DateTypeDepartmentCare Team (Latest Contact Info)Httzmjgmutg31/05/2025 [address] [facility] MARKETING PROJECT COORDINATOR Oncology [address] [place] [address] Jenna Andrade PA-C [address] [place], [place] [address] Follow upHealth MaintenanceDue DateLast DoneCommentsDiabetic foot exam1970 Depression Tjobpfbrtv33/28/1973HIV riidtd3403/15/1975Diabetic Alb to Cr ratio (uACR) test1978Diabetic retinal exam1978Hepatitis C srrikk6003/15/1978 DTaP/Tdap/Td vaccine (1 - Tdap)03/15/19793560Wetcluwwvwq71/28/2006Colorectal Cancer Yyvkye4203/15/2005FIT/FOBT: Average risk2005Fecal-DNA (Cologuard): Average risk2005Sigmoidoscopy/CT dqiirkmjsszx32/28/2006Shingles vaccine (1 of 2) 2010Respiratory Syncytial Virus (RSV) or age 60 yrs+ (1 - Risk 60-74 years 1-dose series)2020nnual Wellness Visit (Medicare)11/15/2023 A1C test (Diabetic or Prediabetic), 06/29/2023GFR test (Diabetes, CKD 3-4, OR last GFR 15-59)/3043Drlbao62/30/2025 07/16/2023, 06/29/2023Flu vaccine (#1)/07/2023, 11/21/2022, 02/26/2022, Additional history existsBreast cancer cjkjvg78607/, 02/14/2019Cervical cancer screenDiscontinuedHPV (without or with Pap) Tseslhwoduwt11/29/2024ap kdvgtAfpwxlpkpaqn25/29/2024COVID-19 VaccineCompleted 11/15/2023, 11/21/2022, 06/12/2020, Additional history existsPneumococcal 0-49 years PdgcqyzLfnsrmpqorrk99/15/2025Pneumococcal 50+ years VaccineCompleted 08/30/2024Hepatitis A vaccineAged OutNo longer eligible based on patient's age to complete this topicHepatitis B vaccineAged OutNo longer eligible based on patient's age to complete this topicHib vaccineAged OutNo longer eligible based on patient's age to complete this topicMeningococcal (ACWY) vaccineAged OutNo longer eligible based on patient's age to complete this topicMeningococcal B vaccineAged OutNo longer eligible based on patient's age to complete this topic Polio vaccineAged OutNo longer eligible based on patient's age to complete this topic Procedures Procedure NamePriorityDate/TimeAssociated DiagnosisCommentsCOMPREHENSIVE METABOLIC XIEOYBvaxxlq10/30/2024 10:15 AM EDT Pre-op testing LIPID FQZDFMyllrsc49/30/2024 10:15 AM EDT Pre-op testing HEMOGLOBIN S6IEgpfghz96/30/2024 10:15 AM EDT Pre-op testing HUMAN PAPILLOMAVIRUS (HPV) DNA PROBE THIN PREP HIGH IOZUWjgkcpj23/29/2024 12:00 AM EDT MARKETING PROJECT COORDINATOR SBBLRKDMFjykxvk37/29/2024 12:00 AM EDT from Last 3 Months or Most Recently Relevant to Health Maintenance Results * (ABNORMAL) Hemoglobin A1c (07/16/2023 10:15 AM EDT)ComponentValueRef RangeTest MethodAnalysis TimePerformed AtPathologist SignatureHemoglobin A1C8.8(H)4.0 - 6.0 %07/16/2023 10:15 AM EDTMERCY LABORATORIESEstimated Avg Dwbcwrt771uy/dL 07/16/2023 10:15 AM EDTMERCY LABORATORIESComment: The ADA and AACC recommend providing the estimated average glucose result to permit better patient understanding of their HBA1c result. Specimen (Source)Anatomical Location / LateralityCollection Method / Volume Collection TimeReceived TimeBloodBLOOD SPECIMEN / Jwdgeli0207/16/2023 10:15 AM EDT 07/16/2023 11:03 AM EDT Narrative Authorizing ProviderResult TypeResult StatusTeresa Alexa Armendariz MICROWAVE OVEN ASSEMBLER - MEDICAL DOSIMETRIST CHEMISTRY ORDERABLESFinal ResultPerforming OrganizationAddressCity/State/ZIP CodePhone Number [facility] [address] [place] [address], [facility] [phone] * (ABNORMAL) Lipid Panel (07/16/2023 10:15 AM EDT)ComponentValueRef RangeTest MethodAnalysis TimePerformed AtPathologist SignatureCholesterol, Wrtsw3986 - 199 mg/dL07/16/2023 10:15 AM EDTMERCY LABORATORIESComment: Cholesterol Guidelines: <200 Desirable 200-240 ??Borderline >240 Undesirable HDL36(L)>40 mg/dL07/16/2023 10:15 AM EDTMERCY LABORATORIESComment: HDL Guidelines: <40 Undesirable 40-59 ?Borderline >59 Desirable LDL Qewuhepoqqg384 - 100 mg/dL07/16/2023 10:15 AM EDTMERCY LABORATORIESComment: LDL Guidelines: <100 Desirable 100-129 ?? Near to/above Desirable 130-159 ?? Borderline >159 Undesirable Direct (measured) LDL and calculated LDL are not interchangeable tests. Chol/HDL Ratio3. 10:15 AM EDTMERCY TJQNTRYUCNGTWtenxhqtoddcl161<150 mg/dL07/16/2023 10:15 AM EDTMERCY LABORATORIESComment: Triglyceride Guidelines: <150 Desirable 150-199 ??Borderline 200-499 ??High >499 Very high Based on AHA Guidelines for fasting triglyceride, November 2011. EDAC20df/dL07/16/2023 10:15 AM EDTMERCY LABORATORIESSpecimen (Source)Anatomical Location / LateralityCollection Method / VolumeCollection TimeReceived TimeBlood BLOOD SPECIMEN / Tqfflls4307/16/2023 10:15 AM EDT07/16/2023 11:03 AM EDT Narrative Authorizing ProviderResult TypeResult StatusTerestonie Alexa Man Naylapapo MICROWAVE OVEN ASSEMBLER - MEDICAL DOSIMETRIST CHEMISTRY ORDERABLESFinal ResultPerforming OrganizationAddressCity/State/ZIP CodePhone Number SAKSHI WOOD [address] [place] [address], [facility] [phone] * (ABNORMAL) Comprehensive Metabolic Panel (07/16/2023 10:15 AM EDT)Component ValueRef RangeTest MethodAnalysis TimePerformed AtPathologist SignatureSodium 025197 - 145 mmol/L07/16/2023 10:15 AM EDTMERCY LABORATORIESPotassium4.73.7 - 5.3 mmol/L07/16/2023 10:15 AM EDTMERCY KJINVHQNAIXITmlyjict40071 - 107 mmol/L 07/16/2023 10:15 AM EDTMERCY SWUYOBQTQLIMTI71893 - 31 mmol/L07/16/2023 10:15 AM EDTMERCY LABORATORIESAnion Pio741 - 16 mmol/L07/16/2023 10:15 AM EDTMERCY PLDILKQHATPLJejqfia841(H)74 - 99 mg/dL07/16/2023 10:15 AM EDTMERCY VDJKCEABMLUUWVD166 - 23 mg/dL07/16/2023 10:15 AM EDTMERCY LABORATORIES Creatinine1.0(H)0.50 - 0.90 mg/dL07/16/2023 10:15 AM EDTMERCY LABORATORIESEst, Glom Filt Rate64>60 mL/min/1.52o28807/16/2023 10:15 AM EDTMERCY LABORATORIES Comment: ? These results are not intended for use in patients <18 years of age. ? eGFR results are calculated without a race factor using the 2020 CKD-EPI equation. Careful clinical correlation is recommended, particularly when comparing to results calculated using previous equations. The CKD-EPI equation is less accurate in patients with extremes of muscle mass, extra-renal metabolism of creatine, excessive creatine ingestion, or following therapy that affects renal tubular secretion. Calcium9.98.6 - 10.4 mg/dL07/16/2023 10:15 AM EDTMERCY LABORATORIESTotal Protein 7.96.6 - 8.7 g/dL07/16/2023 10:15 AM EDTMERCY LABORATORIESAlbumin4.43.5 - 5.2 g/dL07/16/2023 10:15 AM EDTMERCY LABORATORIESAlbumin/Globulin Ratio1.01.0 - 2.5 07/16/2023 10:15 AM EDTMERCY LABORATORIESTotal Bilirubin0.30.00 - 1.20 mg/dL 07/16/2023 10:15 AM EDTMERCY LABORATORIESAlkaline Phndgliwqqu73602 - 104 U/L 07/16/2023 10:15 AM EDTMSIERRA TUCSONY HBPNEJZXLDSZSFO9052 - 35 U/L07/16/2023 10:15 AM EDT [facility] GNDDWZORSFJWPFR7145 - 35 U/L07/16/2023 10:15 AM EDTMEka Systems Specimen (Source)Anatomical Location / LateralityCollection Method / Volume Collection TimeReceived TimeBloodBLOOD SPECIMEN / Rlcnmqb0707/16/2023 10:15 AM EDT 07/16/2023 11:03 AM EDT Narrative Authorizing ProviderResult TypeResult StatusTeresa Alexa Armendariz MICROWAVE OVEN ASSEMBLER - [facility] CHEMISTRY ORDERABLESFinal ResultPerforming OrganizationAddressCity/State/ZIP CodePhone Number [place] [address] [address] [phone] * Human papillomavirus (HPV) DNA probe thin prep high risk (06/15/2023 12:00 AM EDT)ComponentValueRef RangeTest MethodAnalysis TimePerformed AtPathologist SignatureSpecimen DescriptionCERVICAL GHHPUPJB96/29/2024 12:00 AM EDTMPirqY LABORATORIESHPV Sample.THIN PREP06/15/2023 12:00 AM EDTMPirqY LABORATORIESHPV, Genotype 16Not DetectedNot Vmgerzxf20/29/2024 12:00 AM EDTMERCY LABORATORIES HPV, Genotype 18Not DetectedNot Hbgxdjbu52/29/2024 12:00 AM EDTMERCY LABORATORIESHPV, High Risk OtherNot DetectedNot Xxnbriii34/29/2024 12:00 AM EDTMLocaMap LABORATORIESHPV, Prcgtbywqtlekt36/29/2024 12:00 AM EDTMERCY LABORATORIESComment: This test amplifies and detects DNA of 14 high-risk HPV types associated with cervical cancer and its precursor lesions (HPV types 16,18, 31, 33, 35, 39, 45, 51, 52, 56, 58, 59, 66, and 68). ? Sensitivity may be affected by specimen collection methods, stage of infection, and the presence of interfering substances. Results should be interpreted in conjunction with other available laboratory and clinical data. A negative high-risk HPV result does not exclude the possibility of future cytologic HSIL or underlying CIN2-3 or cancer. ? This test is intended for medical purposes only and is not valid for the evaluation of suspected sexual abuse or for other forensic purposes. Specimen (Source)Anatomical Location / LateralityCollection Method / Volume Collection TimeReceived TimeCERVICAL AFGLPZWY22/29/2024 Narrative Authorizing ProviderResult TypeResult StatusSayeema N Lien MDHEMATOLOGY ORDERABLESFinal ResultPerforming OrganizationAddressCity/State/[facility] CodePhone Number [facility] [address] [place] [address], [facility] [phone] * MARKETING PROJECT COORDINATOR Cytology (06/15/2023 12:00 AM EDT)ComponentValueRef RangeTest Method Analysis TimePerformed AtPathologist SignatureCytology ReportPath Number: [id number] DIAGNOSIS Imaged ThinPrep Pap - Cervical (1 monolayer slide): Specimen Adequacy: ? Satisfactory for evaluation. ? - Endocervical/transformation zone component present. Descriptive Diagnosis: ? Negative for intraepithelial lesion or malignancy. ?? Cytotech Screener: ??EY Electronically Signed Out Courtney Loving CT(ASCP) /06/24/2023 Procedure/Addendum HPV Procedure Report ? Date Ordered: ? 06/16/2023 ? Status: Signed Out ? Date Complete: ? 06/16/2023 ? By: System Interface ? Date Reported: ? 06/16/2023 ? Sample: ??HPV Type 16 ?Result: ?? Not Detected ?Ref Range: (Not Detected) Sample: ??HPV Type 18 ?Result: ?? Not Detected ?Ref Range: (Not Detected) Sample: ??Other High Risk HPV ?Result: ?? Not Detected ?Ref Range: (Not Detected) Sample: ??HPV Interp ?Result: ? Ref Range: (Not Detected) This test amplifies and detects DNA of 14 high-risk HPV types associated with cervical cancer and its precursor lesions (HPV types 16,18, 31, 33, 35, 39, 45, 51, 52, 56, 58, 59, 66, and 68). ? Sensitivity may be affected by specimen collection methods, stage of infection, and the presence of interfering substances. Results should be interpreted in conjunction with other available laboratory and clinical data. A negative high-risk HPV result does not exclude the possibility of future cytologic HSIL or underlying CIN2-3 or cancer. ? This test is intended for medical purposes only and is not valid for the evaluation of suspected sexual abuse or for other forensic purposes. Performed at [facility], [address] [place] [address] ??[phone]. ?? Source of Specimen: A: Imaged ThinPrep Pap - Cervical (1 monolayer slide) HPV Reflex?......................HPV Regardless Clinical History Postmenopausal Z12.4 Encounter for screening for malignant neoplasm of cervix Processing Lab: [address] [id number] Interpretation performed at [address] [phone] This Pap Test has been evaluated with [...] smear result. GYNECOLOGIC CYTOLOGY REPORT Patient Name: CHRIS FRAGAJAQUI Coker [facility] Rec: [id number] [facility] ??[facility] ANATOMIC PATHOLOGY [address] [place] [address]. ??[place], [place] [address] [facility] LABSSpecimen (Source)Anatomical Location / LateralityCollection Method / VolumeCollection TimeReceived Time CERVICAL GEQGWLHF97/ 7:12 AM EDT Narrative Authorizing ProviderResult TypeResult StatusSayeema N Daudi MDPATHOLOGY/CYTOLOGY ORDERABLESFinal ResultPerforming OrganizationAddressCity/State/ZIP CodePhone Number [facility] [address] [id number], [facility] [phone] [facility] from Last 3 Months or Most Recently Relevant to Health Maintenance Insurance Advance Directives * Full Code (Latest Code Status on File) Date ActivatedDate InactivatedComments07/28/2023 6:08 AM07/29/2023 1:27 PM * Full Code Date ActivatedDate InactivatedComments06/30/2023 10:53 AM06/30/2023 5:12 PM Care Teams Team MemberRelationshipSpecialtyStart DateEnd Date Pastora Kohler APRN - MEDICAL DOSIMETRIST [address] [place] [address] PCP - GeneralNurse Practitioner, Family06/15/23
--- OUTSIDE RECORDS SUMMARY | 2024-12-08 08:48 | XMS_ITS ---
Author Organization [facility] Address [address], [address] [place] [address] Care Team Providers Care Pull Over Name Role Phone Pastora Kohler APRN - INDEX CLERK Primary Care P [facility] Active Problems ProblemNoted DateDiagnosed DateHistory of 3 ehqgfldc59/11/2024hronic midline low back pain without hhappgrm98/11/2024Sleep apnea07/28/2023ortic valve bzkssrob12/11/2024oorly controlled diabetes xmwnqqoc06/11/2024oorly- controlled lhbjslbesukq62/11/2024Malignant neoplasm of ouchmiikdgm83/11/2024 Endometrial toqhjo5606/03/2023 Cancer Staging: Clinical stage from 07/28/2023:FIGO Stage IA(cT1a, cN0, cM0) - Signed by Marshall Emmanuel MD on 08/03/2023 Arthritis of left acromioclavicular joint11/03/2022Internal derangement of left knee11/03/2022rtificial knee joint fcqoaow5311/03/2022Spinal stenosis of lumbar zzyejs7611/03/2022ifficulty yjqjmgp5811/03/2022isplacement of lumbar intervertebral disc without taglzuvyyz84/18/2023Exfoliative dermatitis due to dpczfvfev16/18/2023astroesophageal reflux disease without tbnajbgpeqn86/18/2023 Left hand lufvalrazdn60/18/2023Mixed gojedncjnlkudm59/18/2023 Overview (06/12/2023): Last Assessment & Plan: Controlled on lipitor. Muscle pain11/03/20229989Pqllemh46/18/2023Osteoarthritis of knee11/03/2022Recurrent major depressive disorder, in partial ltcgppmxi67/18/2023 Overview (06/12/2023): Last Assessment & Plan: On abilify, wellbutrin, hydroxyzine Type 2 diabetes mellitus with hyperglycemia, with long-term current use of cespdjy5711/03/2022 Overview (06/12/2023): Last Assessment & Plan: She is managed by [facility]. A1c is high and advised she needs to get this under control and discussed this being a risk factor for her surgery. She is taking multiple medications and recently started on ozempic. Says her BS are better now. On metformin, tresiba, and ozempic. Cellulitis of right lower egecbyvme52/21/2017Chronic pain dfyvuyen06/28/2017 Generalized anxiety maiajevh69/28/2017Severe episode of recurrent major depressive disorder, without psychotic sztlaqyw62/28/2017Hip pain01/08/2016 Carpal tunnel gzyscicr18/17/2012Cervical bxlleadaqfj66/07/2009Primary tldlijliygdb73/07/2009 Overview (06/12/2023): Last Assessment & Plan: Controlled on hyzaar and metoprolol Disorder of rotator cuff02/23/2008 Current Treatment and Therapy Plans No current plan information found. Past Treatment and Therapy Plans No past plan information found. Lifetime Dose Tracking * ChemicalLifetime DoseAutomatic EntryManual EntryInvasive Whhxfmpqv670 mGy0 mGy 293 mGy Resolved Problems ProblemNoted DateDiagnosed DateResolved DatePost-operative state07/28/2023 08/27/2023
--- OUTSIDE RECORDS SUMMARY | 2024-12-08 08:49 | XMS_ITS | Encounter Summary ---
Author Organization [facility] Address [address] [place] [address] Care Team Providers Care Instrument Assembly Supervisor Name Role Phone Jennifer Christine MD Primary Care Provider [phone] Pastora Kohler SURFACE WATER TECHNICIAN Unavailable [phone] Pastora Kohler SURFACE WATER TECHNICIAN Unavailable [phone] Encounter Details DateTypeDepartmentCare Team (Latest Contact Info)Zfjhbtricus76/14/2025Travel Social History Tobacco UseTypesPacks/DayYears UsedDateSmoking Tobacco: NeverSmokeless Tobacco: NeverAlcohol UseStandard Drinks/WeekCommentsNot Currently0 (1 standard drink = 0.6 oz pure alcohol)caffeine: 2-3 cups per dayPHQ-2AnswerDate RecordedPatient Health Questionnaire-2 Qcnpp198CommentsUnknownSex and Gender InformationValueDate RecordedSex Assigned at BirthNot on fileLegal SexFemale 04/30/2022 6:56 PM EDTGender IdentityNot on fileSexual OrientationNot on file documented as of this encounter Plan of Treatment Not on file documented as of this encounter Visit Diagnoses Not on filedocumented in this encounter Additional Health Concerns AssessmentNoted TimePHQ-9 Depression Total Score: 12:00 PM EDT documented as of this encounter Care Teams Team MemberRelationshipSpecialtyStart DateEnd Date Jennifer Christine MD [address] [place], [place] [id number] PCP - GeneralFamily Medicine04/10/23 Pastora Kohler NP [address] [place], [place] [id number] PCP - [facility]/ Pastora Kohler NP [address] [place], [place] [id number] Nurse PractitionerFamily Medicine04/10/23documented as of this encounter
--- OUTSIDE RECORDS SUMMARY | 2024-12-08 08:49 | XMS_ITS | Encounter Summary ---
Author Organization [facility] Address [address] [place] [address] Care Team Providers Care General Maintenance Engineer Name Role Phone Jennifer Christine MD Primary Care Provider Pastora Kohler WASTE SPECIALIST Unavailable Pastora Kohler WASTE SPECIALIST Unavailable [phone] Encounter Details DateTypeDepartmentCare Team (Latest Contact Info)Pearzbnwqth32/15/2025Results Follow-Up General acute hospital Family Medicine [address] [place] [address] Pastora Kohler WASTE SPECIALIST [address] [place], [place] [id number] Soft Tissue Palpable Mass Social History Tobacco UseTypesPacks/DayYears UsedDateSmoking Tobacco: NeverSmokeless Tobacco: NeverAlcohol UseStandard Drinks/WeekCommentsNot Currently0 (1 standard drink = 0.6 oz pure alcohol)caffeine: 2-3 cups per dayPHQ-2AnswerDate RecordedPatient Health Questionnaire-2 Lyqqr804CommentsUnknownSex and Gender InformationValueDate RecordedSex Assigned at BirthNot on fileLegal SexFemale 04/30/2022 6:56 PM EDTGender IdentityNot on fileSexual OrientationNot on file documented as of this encounter Miscellaneous Notes * Telephone Encounter - Breanna Vasquez MA - 12/05/2024 3:42 PM EDT Faxed to [phone] * Telephone Encounter - CHARU BURKETT - 12/05/2024 1:36 PM EDT Pt returned call, she is not interested in seeing ortho at this time. Pt states she is currently working with pain management. Pt asking if this message could be forward the pain management in [place]. 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 ----- Message ----- From: Mable Suárez MA Sent: 11/30/2024 3:22 PM EDT To: Pastora Kohler NP ----- Message from Mable Suárez MA sent at 11/30/2024 3:22 PM EDT ----- ----- Message ----- From: Pastora Kohler NP Sent: 11/30/2024 2:13 PM EDT To: Jennifer Christine Bridge Operator Pool Let patient know her ultrasound did not show any mass or lesion. Showed swelling. Did she hit that area on anything? 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 * Telephone Encounter - Mable Suárez MA - 11/30/2024 3:18 PM EDT Pt states that she has fallen a few times over the summer, but that is all that she can think of that had happened. Pt states that she is still having pain off and on, and sometimes the pain is bad enough where it can keep her from walking * Telephone Encounter - Mable Suárez MA - 11/30/2024 3:18 PM EDT ----- Message from Pastora Kohler sent at 11/30/2024 2:13 PM EDT ----- Let patient know her ultrasound did not show any mass or lesion. Showed swelling. Did she hit that area on anything? ----- Message ----- From: Interface, Incoming Img Psone Background Sent: 11/30/2024 1:08 PM EDT To: Pastora Kohler NP * Result Encounter Note - Pastora Kohler NP - 11/30/2024 2:13 PM EDT Let patient know her ultrasound did not show any mass or lesion. Showed swelling. Did she hit that area on anything? documented in this encounter Plan of Treatment Not on file documented as of this encounter Visit Diagnoses Not on filedocumented in this encounter Additional Health Concerns AssessmentNoted TimePHQ-9 Depression Total Score: 12:00 PM EDT documented as of this encounter Care Teams Team MemberRelationshipSpecialtyStart DateEnd Date Jennifer Christine MD [address] [place], [place] [id number] PCP - GeneralFamily Medicine04/10/23 Pastora Kohler NP [address] [place], [place] [id number] PCP - [facility]/ Pastora Kohler NP [address] [place], [place] [phone] Nurse PractitionerFamily Medicine04/10/23documented as of this encounter
--- OUTSIDE RECORDS SUMMARY | 2024-12-08 08:49 | XMS_ITS | Clinical Summary ---
Author Organization [facility] Address [address] [place] [id number] Care Team Providers Care Resource Management Specialist Name Role Phone SagarDagoCasper Primary Care Provider + [phone] Allergies No known active allergies Medications MedicationSigDispense QuantityRefillsLast FilledStart DateEnd DateStatus lisinopril(PRINIVIL 20 MG TAB) Take one(1) tablet daily.ctive fluoxetine hcl(PROZAC 20 MG CAP) Take one(1) capsule daily.ctive propoxyphene/acetaminophen(DARVOCET-N 100 100 MG-650 MG TAB) Take one (1) tablet four(4) times daily as needed for pain.ctive gabapentin(NEURONTIN 300 MG CAP) Indications:Pain in limb,Reflex sympathetic dystrophy of the upper limbTake one(1) capsule three(3) times daily as directed 90 ctive Active Problems ProblemNoted DateDiagnosed DateUnspecified essential wskbfdreaqua95/07/2009Other specified disorders of rotator cuff syndrome of shoulder and allied disorders 02/23/2008Other and unspecified disc disorder of cervical wyurvz4002/23/2008 Family History Medical HistoryRelationCommentsHypertensionBrotherHypertensionMotherHypertension SisterThyroidSisterRelationStatusCommentsBrotherMotherSister Social History Tobacco UseTypesPacks/DayYears UsedDateSmoking Tobacco: Every DayCigarettes0.520 Alcohol UseStandard Drinks/WeekCommentsNo0 (1 standard drink = 0.6 oz pure alcohol)CommentsNoSex and Gender InformationValueDate RecordedSex Assigned at BirthNot on fileLegal CmlOhacnj27/03/2011 8:17 AM ESTGender Identity Not on fileSexual OrientationNot on fileOccupationIndustryJob Start DateJob End DatestockerNot on fileNot on fileNot on file Last Filed Vital Signs Vital SignReadingTime TakenCommentsBlood Ihmlilrj036/8602/29/2008 10:03 AM EST Vqeon013402/29/2008 10:03 AM ESTTemperature--Respiratory Owrc243602/29/2008 10:03 AM ESTOxygen Idvphnxxus68%02/29/2008 10:03 AM ESTInhaled Oxygen Concentration-- Weight--Height--Body Mass Index-- Plan of Treatment Health MaintenanceDue DateLast DoneCommentsAnxiety Icjmxqrka29/28/1979Depression Aiscgsmaj51/28/1979HIV Fnwwfspcp90/28/1979Hepatitis C Rnhtaswuw87/28/1979 DTaP,Tdap,Td Vaccine (1 - Tdap)1979Cervical Cancer Tfdhlyuyt33/28/1982 Mammogram Yokxxcrhz02/28/2001CT Oftmjdmvrvbl63/28/2006Cologuard (FIT-DNA) 03/15/20053730Jqqbmfxwtrd60/28/2006Colorectal Cancer Uckfmqewt13/28/2006Diabetes Hkbukuryy92/28/2006Fecal Occult Blood2005Lipid Nmcerbbgk02/28/2006 Wtefxzprittry55/28/2006Pneumococcal Vaccine: 50+ (1 of 1 - PCV)2010 Shingrix Vaccine (1 of 2)2010Covid-19 Vaccine (1 - 2024- season) 2024Influenza Vaccine (#1)2024RSV Vaccine (1 - 1-dose 75+ series) 2035 Insurance Care Teams Team MemberRelationshipSpecialtyStart DateEnd Date Dago Keith [address] [place] [phone] PCP - Xvwxeku59/30/08
--- OUTSIDE RECORDS SUMMARY | 2024-12-08 08:49 | XMS_ITS | Clinical Summary ---
Author Organization [facility] Healthcare Address [address] [place] [address] Care Team Providers Care Supervisor Cigar Making Hand Name Role Phone Jennifer Christine MD Primary Care Provider [phone] Pastora Kohler DRAFTER REFRIGERATION Unavailable [phone] Pastora Kohler DRAFTER REFRIGERATION Unavailable [phone] Allergies No known active allergies Medications MedicationSigDispense QuantityRefillsLast FilledStart DateEnd DateStatus ARIPiprazole (Abilify) 15 MG tablet 1 (one) time each day at the same timeActive buPROPion XL (Wellbutrin XL) 300 MG 24 hr tablet Active ergocalciferol (Vitamin D2) 1.25 MG (11188 UT) capsule 08/01/2022ctive Accu-Chek Guide test strip 10/23/2022ctive Accu-Chek FastClix Lancets misc 08/21/2022ctive metFORMIN (Glucophage) 1000 MG tablet 1 (one) time each day at the same timeActive nortriptyline (Pamelor) 50 MG capsule Active pregabalin (Lyrica) 75 MG capsule Take 75 mg by mouth in the morning and 75 mg before bedtime.Active tiZANidine (Zanaflex) 4 MG tablet 09/16/2022ctive oxyCODONE-acetaminophen (Percocet) 5-325 MG tablet Take 1 tablet by mouth as needed in the morning and 1 tablet as needed at noon and 1 tablet as needed in the evening.3Active Semaglutide, 2 MG/DOSE, (Ozempic, 2 MG/DOSE,) 8 MG/3ML solution pen-injector Inject 2 mg under the skin 1 (one) time per weekActive insulin degludec (Tresiba) 100 UNIT/ML injection Indications:Type 2 diabetes mellitus with hyperglycemia, with long-term current use of insulin (HCC)Inject 48 Units under the skin at ppvhfra63/30/2024Active metoprolol tartrate (Lopressor) 25 MG tablet Indications:Primary hypertensionTake 1 tablet (25 mg) by mouth in the morning and 1 tablet (25 mg) in the evening. Take with meals. 180 tablet 4Active hydrOXYzine HCl (Atarax) 25 MG tablet Take 25 mg by mouth every 6 (six) hours if needed for anxiety PRNActive Klayesta 674606 UNIT/GM powder APPLY EXTERNALLY TO AFFECTED SKIN AREAS TWICE DAILY PECQGJ995Active losartan-hydroCHLOROthiazide (Hyzaar) 50-12.5 MG tablet Indications:Primary hypertensionTake 1 tablet by mouth Daily 90 tablet 5Active amLODIPine (Norvasc) 5 MG tablet Indications:Primary hypertensionTake 1 tablet (5 mg) by mouth Daily 90 tablet 5Active traMADol (Ultram) 50 MG tablet 50 mg5Active atorvastatin (Lipitor) 40 MG tablet Indications:Mixed hyperlipidemiaTAKE 1 TABLET BY MOUTH EVERY DAY 90 tablet 5Active meloxicam (Mobic) 15 MG tablet Indications:Left hip painTake 1 tablet (15 mg) by mouth Daily 30 tablet 5Active Active Problems ProblemNoted DateDiagnosed MgezXahnq15/02/2025Iron deficiency vvcxzc6411/17/2024 Hzeqomjqhw12/02/2025Peripheral vascular myzrpwf5211/17/2024hronic kidney disease, stage 2 (mild)04/12/2024 Assessment & Plan (08/30/2024 7:28 PM EDT): -drink plenty of fludis. Good control of DM and HTN. 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 ahiborw7004/12/2024 Assessment & Plan (08/30/2024 7:28 PM EDT): Stage 3a chronic kidney vrbxyqq1404/12/2024Type 2 diabetes mellitus without veokljoqrbrsk06/25/2025iceps tendinitis, right03/23/2024Impingement of right hpyedjpy50/05/2025ortic valve uyxeiwat27/11/2024History of 3 sections 07/28/2023oorly controlled diabetes ewxljuaq70/11/2024oorly-controlled llyecvfrnaem61/11/2024Sleep apnea07/28/2023Malignant neoplasm of endometrium 4BMI 50.0-59.9, adult12/22/2022rthritis of left acromioclavicular joint11/03/2022rtificial knee joint nfmiwft5611/03/2022ervical spondylosis 11/03/2022egenerative lumbar spinal wunvbuaz46/18/2023ifficulty walking 11/03/2022isplacement of lumbar intervertebral disc without myelopathy 11/03/2022rimary aevdkfypqtss78/18/2023 Assessment & Plan (08/30/2024 7:28 PM EDT): Orders: Comprehensive metabolic panel; Future Lipid panel; Future Discussed current management plan. Goal BP less then 130/80. Discussed heart healthy diet, increasefruits and vegetables, limit salt intake. Encouraged increase [...] hyzaar and metoprolol Exfoliative dermatitis due to gghbljukv75/18/2023astroesophageal reflux disease without /18/2023rthritis of left knee11/03/2022Internal derangement of left knee11/03/2022Left hand tsdkbcdylmh57/18/2023Mixed teqkzvkinxsuor77/18/2023 Assessment & Plan (08/30/2024 7:28 PM EDT): Orders: Lipid panel; Future -on a statin Assessment & Plan (05/15/2023 10:04 PM EDT): Controlled on lipitor. Muscle pain11/03/20220527Kthqxfk87/18/2023Osteoarthritis of knee11/03/2022Recurrent major depressive disorder, in partial grmmuakei84/18/2023 Assessment & Plan (08/30/2024 7:28 PM EDT): -manage by psych Assessment & Plan (05/15/2023 10:06 PM EDT): On abilify, wellbutrin, hydroxyzine Shoulder joint pain11/03/2022Type 2 diabetes mellitus with hyperglycemia, with long-term current use of jxsfvlg2511/03/2022 Assessment & Plan (08/30/2024 7:28 PM EDT): [...] 4:57 PM EDT): She is managed by [facility]. A1c is high and advised she needs to get this under control and discussed this being a risk factor for her surgery. She is taking multiple medications and recently started on ozempic. Says her BS are better now. On metformin, tresiba, and ozempic. Cellulitis of right lower tzrwkkoaa32/21/2017Chronic pain nymlronv97/28/2017 Assessment & Plan (08/30/2024 7:28 PM EDT): -managed by pain management Generalized anxiety qfezamoo24/28/2017Severe episode of recurrent major depressive disorder, without psychotic unfpfajq23/28/2017Hip pain01/08/2016 Cervical mnqisenapfquk12/03/2014Carpal tunnel jimeqags90/17/2012 Resolved Problems ProblemNoted DateDiagnosed DateResolved SnsaGqizei47/02/585726 Encounters DateTypeDepartmentCare ZkdmCxwilvskafe45/15/2025Results Follow-Up [facility] [address] [place] [address] Pastora Kohler NP US Soft Tissue Palpable Mass11/29/2024 11:45 AM EDTAncillary Procedure [facility] [address] [facility] [address] [place] [address] Palpable mass of soft tissue of lower rcrwwugce46/14/0915Ljgvsm87/07/2025 Telephone [facility] [address] [place] [address] Mable Suárez MA 11/22/2024Results Follow-Up [facility] [address] [place] [address] Pastora Kohler NP XR femur left 2+ views11/22/2024Telephone [facility] [address] [place] [place] [address] Jennifer Christine MD 11/21/2024 4:00 PM EDTOffice Visit [facility] [address] [place] [address] Pastora Kohler NP Need for vaccination (Primary Dx); Pain of left femur11/21/2024 3:45 PM EDTAncillary Procedure [facility] [address] [facility] [address] [place] [address] Pain of left femur11/21/2024amboo flowsheet [facility] [address] [facility] [place] [address] Pastora Kohler NP 11/21/20241285Nwhzav26/04/2025Telephone [facility] [address] [facility] [place] [address] Jennifer Christine MD 11/17/2024 10:40 AM EDTOffice Visit [facility] [address] [facility] [place] [address] Jennifer Christine MD Sore lkojjm7811/17/2024amboo flowsheet [facility] [address] [facility] [place] [address] Jennifer Christine MD 11/17/20244214Mceroo85/06/2025Refill [facility] [address] [facility] [place] [address] Lalitha Trujillo NP Left hip pain09/26/2024Results Follow-Up [facility] [address] [facility] [place] [address] Lalitha Trujillo NP XR lumbar spine 4+ views w flexion ltzykeihh86/11/1063Bamuie64/08/2025 3:30 PM EDTOffice Visit [facility] [address] [facility] [place] [address] Lalitha Trujillo NP Acute left-sided low back pain with left-sided sciatica (Primary Dx)09/23/2024 1:30 PM EDTAncillary Procedure [facility] [address] [facility] [address] [place] [address] Acute left-sided low back pain with left-sided /08/2025amboo flowsheet [facility] [address] [facility] [place] [address] Lalitha Trujillo NP 09/23/20244351Hmbfcs58/07/2025Refill [facility] [address] [place] [address] Jennifer Christine MD Mixed xyhulbtyqtvnad24/30/2025 2:00 PM EDTOffice Visit [facility] [address] [facility] [place] [address] Lalitha Trujillo, NIDHI Left leg cellulitis (Primary Dx)09/14/2024amboo flowsheet [facility] [address] [facility] [place] [address] Lalitha Trujillo, NIDHI 09/14/20240116Dniztt92/24/2025Telephone [facility] [address] [place] [address] Teri Main MA from Last 3 Months Immunizations ImmunizationAdministration DatesNext DueInfluenza, Ytnfnylrxnk65/01/2017 Influenza, injectable, quadrivalent, preservative free11/21/2022,02/26/2022, 12/09/2016Influenza, seasonal, qlekqywlzp50/18/2014Influenza, seasonal, injectable, preservative free11/21/2024,01/03/2015Pneumococcal Conjugate PCV 20 08/30/20242817KQFS-FQP-7 (COVID-19) vaccine, mRNA, spike protein, LNP, PF, 50 mcg/0.5 mL11/21/2022 Family History Medical HistoryRelationNameCommentsbrain tumorFatherHeart diseaseMotherRelation NameStatusCommentsFatherDeceasedMotherDeceased Social History Tobacco UseTypesPacks/DayYears UsedDateSmoking Tobacco: NeverSmokeless Tobacco: Never Tobacco Cessation:Counseling Given: Not Answered Alcohol UseStandard Drinks/WeekCommentsNot Currently0 (1 standard drink = 0.6 oz pure alcohol)caffeine: 2-3 cups per dayPHQ-2AnswerDate RecordedPatient Health Questionnaire-2 Zmgxz239CommentsUnknownSex and Gender InformationValueDate RecordedSex Assigned at BirthNot on fileLegal SexFemale 04/30/2022 6:56 PM EDTGender IdentityNot on fileSexual OrientationNot on file Last Filed Vital Signs Vital SignReadingTime TakenCommentsBlood Pchjaqsu319/9210 3:59 PM EDT Qiuyn182911/21/2024 3:59 PM VHKJtyjxhlapip00.3 ??C (97.3 ??F)11/21/2024 3:59 PM EDTRespiratory Mekc580709/14/2024 2:08 PM EDTOxygen Uuoauimcwd56%11/21/2024 3:59 PM EDTInhaled Oxygen Concentration--Venfki324 kg (286 lb)11/21/2024 3:59 PM EDT Kkclgu550 cm (5' 3 )11/17/2024 10:49 AM EDTBody Mass Index50.6611/17/2024 10:49 AM EDT Plan of Treatment Health MaintenanceDue DateLast DoneCommentsCT Cferbrtgkxxh73/28/1961Colonoscopy 1960olorectal Cancer Rewiqrxzi50/28/1961FIT-DNA1960FIT1960 FOBT1960 6612Jtpjegxnwerkt34/28/6767Luiqdtcaq18/30/938384/, 02/14/2019 Diabetes: Hemoglobin A1C, 05/25/2024, 02/04/2024, Additional history existsDiabetes: Urine Protein Wwpmmuthf29/Diabetes: Retinopathy Xnsgvqily90/Medicare Annual Wellness (AWV) , 08/30/2024Pap Smear/, 06/15/2023 Cervical Cancer Nonejgthx47/29/2029HPV/Yhnwbr20, 06/15/2023 Influenza LakizptCtiytfkgb38/06/2025, 11/21/2022, 02/26/2022, Additional history exists Procedures Procedure NamePriorityDate/TimeAssociated DiagnosisCommentsUS SOFT TISSUE PALPABLE HVGRRtlluvc23/14/2025 11:48 AM EDT Palpable mass of soft tissue of lower extremity XR FEMUR 2+ VW SZATUjcciyp44/06/2025 5:01 PM EDT Pain of left femur POCT RAPID STREP ORuxjhbn63/02/2025 11:46 AM EDT Sore throat STATUS COVID-19/AQKYktaqfb09/02/2025 11:45 AM EDT Sore throat XR LUMBAR SPINE 4+ VIEWS WITH FLEXION YLKXXKCXAHuwkwbm26/08/2025 4:11 PM EDT Acute left-sided low back pain with left-sided sciatica HEMOGLOBIN U1VMoodvgw01/15/2025 12:53 PM EDT Encounter for wellness examination Type 2 diabetes mellitus with hyperglycemia, with long-term current use of insulin ([facility]) Morbid obesity ([facility]) MICROALBUMIN / CREATININE URINE LVJOBDtjbhyg17/14/2025 10:24 AM EST Type 2 diabetes mellitus with diabetic mononeuropathy, with long-term current use of insulin ([facility]) BI MAMMOGRAM SCREENING TOMOSYNTHESIS RFFUQYSTGSlmnwhw79/30/2024 11:20 AM EDT Encounter for screening mammogram for malignant neoplasm of breast DIABETIC RETINOPATHY SCREENING - OU - BOTH QPOTDvqtgui71/19/2024 2:04 PM EDTfrom Last 3 Months or Most Recently Relevant to Health Maintenance Results * US Soft Tissue Palpable Mass (11/29/2024 11:48 AM EDT)Anatomical Region LateralityModalityRightUltrasoundSpecimen (Source)Anatomical Location / LateralityCollection Method / VolumeCollection TimeReceived Time11/30/2024 1:05 PM EDT Impressions 11/30/2024 1:06 PM EDT Impression: No focal mass or lesion at the area of concern sonographically. Subcutaneous edema. ELECTRONICALLY SIGNED BY: MD Godwin Strauss 11/30/2024 1:06 PM EDT US SOFT TISSUE [...] Cruz MD Authorizing ProviderResult TypeResult StatusChristy A Kohler NPIMG US PROCEDURESFinal Result * XR femur left 2+ views (11/21/2024 5:01 PM EDT)Anatomical RegionLaterality ModalityLower Extremities, FemurLeftRadiographic ImagingSpecimen (Source) Anatomical Location / LateralityCollection Method / VolumeCollection Time Received Time11/21/2024 5:03 PM EDT Impressions 11/21/2024 5:04 PM [...] arthroplasty. ELECTRONICALLY SIGNED BY: Pj Dang MD Authorizing ProviderResult TypeResult StatusChristy A Kohler NPIMG XR PROCEDURESFinal Result * POCT rapid strep A manually resulted (11/17/2024 11:46 AM EDT)ComponentValue Ref RangeTest MethodAnalysis TimePerformed AtPathologist SignatureRapid Strep A ScreenNegativeNegative, None DetectedSpecimen (Source)Anatomical Location / LateralityCollection Method / VolumeCollection TimeReceived BbitUwym09/02/2025 11:46 AM EDT Narrative Authorizing ProviderResult TypeResult StatusJennifer Christine MDPOINT OF CARE TEST ENTER/EDIT ORDERABLESFinal Result * STATUS COVID-19/FLU (11/17/2024 11:45 AM EDT)ComponentValueRef RangeTest MethodAnalysis TimePerformed AtPathologist SignatureFLU AnegativeFLU Bnegative SARS COV 2 RNAnegativeSpecimen (Source)Anatomical Location / Laterality Collection Method / VolumeCollection TimeReceived DnauLbvzdfzxncurka71/02/2025 11:45 AM EDT Narrative Authorizing ProviderResult TypeResult StatusJennifer Christine MDPOINT OF CARE TEST ENTER/EDIT ORDERABLESFinal Result * XR lumbar spine 4+ views w flexion extension (09/23/2024 4:11 PM EDT) Anatomical RegionLateralityModalitySpine, L-spineRadiographic ImagingSpecimen (Source)Anatomical Location / LateralityCollection Method / VolumeCollection TimeReceived Time09/23/2024 4:58 PM EDT Impressions 09/23/2024 5:00 PM [...] Diffuse disc space narrowing L5-S1. Procedure Note Pj Dang MD - 09/23/2024 Lumbar spine, 7 views. [...] spondylolisthesis. ELECTRONICALLY SIGNED BY: Pj Dang MD Authorizing ProviderResult TypeResult Rd Trujillo NPIMG XR PROCEDURES Final Result * (ABNORMAL) Hemoglobin A1c (08/30/2024 12:53 PM EDT)ComponentValueRef RangeTest MethodAnalysis TimePerformed AtPathologist SignatureHemoglobin A1C8.4(H)<5.7 % QUESTComment: For someone without known diabetes, a hemoglobin [...] A1c for diagnosis of diabetes for children. Specimen (Source)Anatomical Location / LateralityCollection Method / Volume Collection TimeReceived TimeBloodVenous blood specimen / Jrabfdi3008/30/2024 12:53 PM EDT08/30/2024 12:54 PM EDT Narrative Resulting Agency Comment Performing Organization Information ?Site ID: QPT ?Name: [facility] ?Address: [address] [place] [address], [address] [place] [phone] ?Director: Tobin Stratton MD Authorizing ProviderResult TypeResult Rd Trujillo NPPRATT REG[facility]AL [facility] BLOOD ORDERABLES Final ResultPerforming OrganizationAddressCity/State/ZIP CodePhone Number QUEST * (ABNORMAL) Microalbumin / creatinine urine ratio (03/01/2024 10:24 AM EST) ComponentValueRef RangeTest MethodAnalysis TimePerformed AtPathologist SignatureCREATININE, RANDOM MATAA7982 - 275 mg/dLQUESTALBUMIN, URINE9.3See Note: mg/dLQUESTComment: Reference Range: Reference Range Not established ALBUMIN/CREATININE RATIO, RANDOM GBHIL936(H)<30 mg/g creatQUESTComment: The ADA defines abnormalities in albumin excretion as follows: Albuminuria Category ?Result (mg/g creatinine) Normal to Mildly increased <30 Moderately increased ? 30-299 Severely increased > OR = 300 The ADA recommends that at least two of three specimens collected within a 3-6 month period be abnormal before considering a patient to be within a diagnostic category. Specimen (Source)Anatomical Location / LateralityCollection Method / Volume Collection TimeReceived TimeUrineUrine specimen obtained by clean catch procedure / Wjfaoui3503/01/2024 10:24 AM EST03/01/2024 4:04 PM EST Narrative Resulting Agency Comment Performing Organization Information ?Site ID: QPT ?Name: [facility] ?Address: [address] [place] [phone] ?Director: Tobin Stratton MD Authorizing ProviderResult TypeResult StatusPatricia Des Frederick NPLAB URINE ORDERABLESFinal ResultPerforming OrganizationAddressCity/State/[facility] CodePhone Number QUEST * Bilateral screening mammogram with tomosynthesis (09/15/2023 11:20 AM EDT) Anatomical RegionLateralityModalityBreastBilateralMammographySpecimen (Source) Anatomical Location / LateralityCollection Method / VolumeCollection Time Received Time09/15/2023 1:11 PM EDT Impressions 09/16/2023 8:35 AM EDT BIRADS 1 - Negative Follow-up: ??Routine Screening Mamm Board Certified Radiologists. ??Accredited by the ACR and FDA. MAMMOGRAPHY IS VERY IMPORTANT TO YOUR HEALTH. ??THE [place] [employer] GUIDELINES RECOMMEND THAT WOMEN 40 YEARS OF AGE AND OLDER SHOULD HAVE A MAMMOGRAM EVERY YEAR. A REMINDER LETTER WILL BE SENT AT THE APPROPRIATE TIME. ??THIS FACILITY UTILIZES A REMINDER SYSTEM TO ENSURE ALL PATIENTS RECEIVE REMINDER NOTIFICATIONS AT THE APPROPRIATE TIME BASED ON THE RECOMMENDATIONS OF THIS EXAM. THIS INCLUDES REMINDERS FOR ROUTINE SCREENING MAMMOGRAMS, DIAGNOSTIC MAMMOGRAMSIN WHICH THE PATIENT IS ASKED TO RETURN FOR ADDITIONAL VIEWS, OR OTHER BREAST IMAGING INTERVENTIONSWHEN APPROPRIATE. THE PATIENT WILL BE PLACED IN THE APPROPRIATE REMINDER SYSTEM INCLUDING A REMINDER AT THE APPROPRIATE TIME FOR ANY PENDING ADDITIONAL VIEWS. TRANSCRIBED BY: ? ELECTRONICALLY SIGNED BY: Noman Caldwell MD Narrative [...] IS VERY IMPORTANT TO YOUR HEALTH. THE [place] [employer] GUIDELINES RECOMMEND THAT WOMEN 40 [...] BY: ELECTRONICALLY SIGNED BY: Noman Caldwell MD Authorizing ProviderResult TypeResult StatusJennifer Christine MDJoellen BI PROCEDURES Final Result * Diabetic Retinopathy Screening - OU - Both Eyes (05/05/2023 2:04 PM EDT) Anatomical RegionLateralityModalityHeadOther Narrative Authorizing ProviderResult TypeResult Little Christine MDOPH PHOTOGRAPHY Final Result from Last 3 Months or Most Recently Relevant to Health Maintenance Insurance Care Teams Team MemberRelationshipSpecialtyStart DateEnd Date Jennifer Christine MD [address] [place] [address] [facility] - [facility]04/10/23 Pastora Kohler NP [address] [place] [address] PCP - [facility]/ Pastora Kohler NP [address] [place], [place] [id number] Nurse Practitionermily Medicine04/10/23
--- OUTSIDE RECORDS SUMMARY | 2024-12-08 08:51 | XMS_ITS | CCD ---
Author Organization [facility] Care Team Providers Care Program Rep Name Role Phone MARLINE BLAKE Unavailable Unavailable MARLINE BLAKE Unavailable Unavailable SELF, REFERRED Unavailable Unavailable OLIVE, ROSALES Unavailable Unavailable NM Unavailable Unavailable MARLINE BLAKE Unavailable Unavailable WIEPKING, LAUREN Unavailable Unavailable SELF, REFERRED Unavailable Unavailable RICKY, JULIEN Unavailable Unavailable OLIVE, ROSALES Unavailable Unavailable MARLINE BLAKE Unavailable Unavailable MARLINE BLAKE Unavailable Unavailable MARLINE BLAKE Unavailable Unavailable OLIVE, ROSALES Unavailable Unavailable Clifford Munoz Jr. Unavailable [phone] Clifford Munoz Unavailable Lili Burgos Unavailable [facility] Unava ilable OLIVIER ., DR ADAM Liu Admitting Unavailable AGUAYO ., DR ADAM Liu Attending Unavailable HERNANDEZ .ALICIA Consulting Unavailable LAKSHMIPATHY ., NARENDRANLEN Consulting Daphne vailable [facility] Unava ilable LAKSHMIPATHY ., NARENDRANATH Admitting Daphne vailable LAKSHMIPATHY ., NARENDRANATH Attending Daphne vailable [facility] Unava ilable DR BLANE THOMAS Consulting Unavailable HERNANDEZ .ALICIA Admitting Unavailable HERNANDEZ .ALICIA Attending Unavailable HERNANDEZ ., ALICIA Consulting Unavailable [facility] Unava ilable HALKER ., JASON Attending Unavailable HALKER ., JASON Consulting Unavailable LAKSHMIPATHY ., NARENDRANATH Admitting Daphne vailable [facility] Unava ilable HALKER ., JASON Admitting Unavailable HALKER ., JASON Attending Unavailable LAKSHMIPATHY ., NARENDRANATH Consulting Daphne vailable [facility] Unava ilable AGUAYO ., DR ADAM Liu Admitting Unavailable AGUAYO ., DR ADAM Liu Attending Unavailable HERNANDEZ ., ALICIA Consulting Unavailable [facility] Unava ilable HERNANDEZ ., ALICIA Consulting Unavailable AGUAYO ., DR ADAM Liu Attending Unavailable AGUAYO ., DR ADAM Liu Admitting Unavailable [facility] Unava ilable AGUAYO ., DR ADAM Liu Admitting Unavailable AGUAYO ., DR ADAM Liu Attending Unavailable HERNANDEZ ., ALICIA Consulting Unavailable [facility] Unava ilable LAKSHMIPATHY ., NARENDRANATH Admitting Daphne vailable LAKSHMIPATHY ., NARENDRANATH Attending Daphne vailable LAKSHMIPATHY ., NARENDRANATH Consulting Daphne vailable Martine Tobias Unavailable Majo, Kalie Primary Care Provider DO Majo Kalie Attending Provider [phone] DO Judith Patel Primary Care Provider [facility] Tobias Attending Provider Majo, Kalie Primary Care Provider Majo, Kalie Attending Provider Stoney Turner Unavailable Majo, DO Kalie Primary Care Provider Majo, DO Kalie Attending Provider Shawn Webb Attending Provider EDWIN MORENO Attending Unavailable AMANDA JUDITH G Referring Unavailable GREGG PATELEE G Primary Care Unavailable Pastora John APRN, CNP Primary Care Claudia mahmood PASTORA KOHLER Primary Care Unavailab LOPEZ Noe Referring Unavailable Jennifer Cabrera MD Primary Care Provider Pastora Kohler NP Unavailable Jose F MEDICAL ANTHROPOLOGY DIRECTOR, Pastora A Unavailable Lauren Torres PA-C Attending Provider Jose F MEDICAL ANTHROPOLOGY DIRECTOR-C, Pastora Primary Care Provider Judith Patel DO Primary Care Provider DAUDI, SAYEEMA N [...] Care Unavailab Lauren Montiel PA-C Attending Provider [phone] Jose F TERRELL-CPastora Primary Care Provider Lili Burgos APRN Attending Provider AKASH RODRIGUEZ Attending Unavailable JENNIFER CABRERA Primary Care Unavailable AKASH RODRIGUEZ Admitting Unavailable AKASH RODRIGUEZ Attending Unavailable Salvador Galo Unavailable JENNIFER CABRERA Primary Care Unavailable AKASH RODRIGUEZ Admitting Unavailable Kaya Tomlinson RN Attending Provider Franklin Allen MEDICAL ANTHROPOLOGY DIRECTOR-C, Shama Orr Attending Provider Jose F MEDICAL ANTHROPOLOGY DIRECTOR-C, Pastora Primary Care Provider Jose F Pastora Primary Care Unavailable Lauren Torres Admitting Unavailable Lauren Torres Attending Unavailable Lili Burgos Admitting Unavailable Lili Burgos Attending Unavailable Jose F Pastora Primary Care Unavailable Shama Allen Admitting Unavailable Shama Allen Attending Unavailable Lili Burgos APRN Attending Provider AKANKSHA SANFORD Attending Unavailable AMANDA, JUDITH G Referring Unavailable AMANDA JUDITH G Primary Care Unavailable AKANKSHA SANFORD Attending Unavailable AMANDA, JUDITH G Referring Unavailable AMANDA JUDITH G Primary Care Unavailable CANDI VYAS Attending Unavailable JOSE F, PASTORA Nunes Primary Care Unavailab AKANKSHA Flores Attending Unavailable JUDITH PATEL Referring Unavailable PASTORA KOHLER Primary Care Unavailab dusty Cedillo MD, Sebastian Turner Attending Unavailable JR. ARIEL, AKASH Nair Attending Unavaila SEAN Lee Attending Unavailable JR. ARIEL, AKASH Nair Referring Unavaila ALEXANDRA Huizar Attending Unavailab dusty OSORIO, ALEXANDRA Nunes Referring Unavailab dusty RODRIGUEZ JR., AKASH Nair Attending Unavaila BLANE Orosco Attending Unavailable LAUREN TORRES Attending Unavailable GABE TRUJILLO Attending Unavailable JENNIFER CABRERA Attending Unavailable LAUREN TORRES Attending Unavailable LAUREN TORRES Attending Unavailable LAUREN TORRES Attending Unavailable PASTORA KOHLER Attending Unavailab PASTORA Goldman Referring Unavailab LAUREN Montiel Attending Unavailable LAUREN TORRES Attending Unavailable LAUREN TORRES Referring Unavailable PASTORA KOHLER Attending Unavailab LAUREN Montiel Attending Unavailable ALEXANDRA OSORIO Attending Unavailab LAUREN Montiel Attending Unavailable GABE TRUJILLO Attending Unavailable JAGUAR, GABE Attending Unavailable JAGUAR, GABE Attending Unavailable GABE TRUJILLO Referring Unavailable JENNIFER CABRERA Attending Unavailable PASTORA KOHLER Attending Unavailab PASTORA Goldman Referring Unavailab PASTORA Goldman Referring Unavailab ALEXANDRA Smith Attending Unavailab le Medications Current Medications MedicationDrug Class(es)DatesSig (Normalized)Sig (Original)3 ML semaglutide 1.34 MG/ML Pen Injector [Ozempic] (8 sources)inject 1 mg by subcutaneous injection every weekOzempic (1 MG/DOSE) 4 MG/3ML DIAL AND INJECT UNDER THE SKIN 1 MG WEEKLY for 28 Activeinject 1 mg by subcutaneous injection every weekOzempic (1 MG/DOSE) 4 MG/3ML DIAL AND INJECT UNDER THE SKIN 1 MG WEEKLY Active3 ML semaglutide 2.68 MG/ML Pen Injector [Ozempic] (20 sources)Start: 27-43-3206mpcpmi 1 mg by subcutaneous injection every week Ozempic (2 MG/DOSE) 8 MG/3ML as directed Subcutaneous weekly for 90 days PAP 12 Oct, 2021 ActiveStart: 19-23-7154Bhzfk: 41-30-1968yuvjrb 2 mg by subcutaneous injection every weekOzempic (2 MG/DOSE) 8 MG/3ML 2 mg Subcutaneous weekly for 90 days June, Not-TakingStart: 80-88-5114ankbis 2 mg by subcutaneous injection every weekOzempic (2 MG/DOSE) 8 MG/3ML 2 mg Subcutaneous weekly for 90 days June, Activeinject 2 mg by subcutaneous injection every weekOzempic (2 MG/DOSE) 8 MG/3ML 2 mg Subcutaneous weekly for 90 days PAP Active acetaminophen 325 mg oral tablet (1 source)Start: 84-97-1006phoiboakuqney (TYLENOL) tablet 650 mgacetaminophen 325 mg / oxyCODONE hydrochloride 7.5 mg oral tablet (20 sources)Opioid AgonistStart: 78-01-3193uqfj 1 tablet by mouth three times daily as neededOxycodone-Acetaminophen 7.5-325 mg tablet Active 1 TAB PO Three times daily as needed April 06, 2023 1:00am Complies with drug therapy Start: 26-91-5812zzcd 1 tablet by mouth every eight hours as needed for pain oxyCODONE-acetaminophen (PERCOCET) 7.5-325 MG per tablet Take 1 tablet by mouth every 8 hours as needed for Pain. 0 01/07/2023 ActiveStart: 24-84-2474zrxRRHOOV- acetaminophen (PERCOCET) 7.5-325 mg per tablet TAKE 1 TABLET BY MOUTH TWICE DAILY TO THREE TIMES DAILY NEEDED FOR PAIN 01/07/2023 ActiveStart: 12-10-2022 oxyCODONE-acetaminophen (Percocet) 5-325 MG tablet Take 1 tablet by mouth as needed in the morning and 1 tablet as needed at noon and 1 tablet as needed in the evening. 12/10/2022 ActiveStart: 27-80-7359gijh 1 tablet by mouth three times daily as neededoxyCODONE-acetaminophen (Percocet) 5-325 MG tablet Take 1 tablet by mouth 3 (three) times a day as needed. 12/10/2022 ActiveStart: 01-03-2021 End: 19-52-3461egdk 1 tablet by mouth every six hours as needed for pain Oxycodone-Acetaminophen (Percocet) 5-325 mg tablet Discontinued 1 TAB PO Q6H as needed for left hippain 28 7 January 03, 2021 October 30, 2022 9:55am amLODIPine 5 mg oral tablet (20 sources)Dihydropyridine Calcium Channel BlockerStart: 42-47-5215hnsr 1 tablet by mouth once dailyamLODIPine (Norvasc) 5 MG tablet Indications: Primary hypertension Take 1 tablet (5 mg) by mouth Daily 90 tablet 1 08/02/2024 Active Start: 12-17-2020 End: 55-28-8389qpea 1 tablet by mouth once dailyAmlodipine 10 mg tablet Discontinued 10 MG PO Daily December 17, 2020 12:00am April 06, 2023 5 :31pmStart: 08-04-2019 End: 27-80-5946qeAKWYCoww (NORVASC) 5 mg tablet 08/04/2019 06/03/2023 Discontinuedamoxicillin 875 mg / clavulanate 125 mg oral tablet (12 sources)Penicillin-class AntibacterialStart: 04-12-2024 End: 96-32-3432kebo 1 tablet by mouth in the morningamoxicillin-clavulanate (Augmentin) 875-125 MG tablet Indications: Acute non-recurrent pansinusitisTake 1 tablet (875 mg) by mouth in the morning and 1 tablet (875 mg) before bedtime. Do all this for 7 days. 14 tablet 04/12/2024 04/19/2024 ActiveStart: 01-19-2024 End: 33-61-0088rqnn 1 tablet by mouth in the morningamoxicillin-clavulanate (Augmentin) 875-125 MG tablet Indications: Bronchitis Take 1 tablet (875 mg) by mouth in the morning and 1 tablet (875 mg) before bedtime. Do all this for 7 days. 14 tablet 01/19/2024 01/26/2024 Active End: 33-74-6431kryd 1 tablet by mouth in the morningamoxicillin-clavulanate (Augmentin) 875-125 MG tablet Take 1 tablet by mouth in the morning and 1 tablet before bedtime. 09/23/2024 Discontinued (Therapy completed)ARIPiprazole 15 mg oral tablet (20 sources)Atypical AntipsychoticStart: 98-40-0799ezms 1 tablet by mouth once dailyAripiprazole 15 mg tablet Active 15 MG PO Daily April 06, 2023 1:00am Complies with drug therapyStart: 08-18-3499hriy 1 tablet by mouth every twenty- four hoursARIPiprazole (ABILIFY) 15 MG tablet Take 1 tablet by mouth every 24 hours 0 01/28/2023 ActiveStart: 12-17-2020 End: 91-13-9793fmpz 1 tablet by mouth once dailyAripiprazole 10 mg tablet Discontinued 10 MG PO Daily December 17, 2020 12:00am April 06, 2023 5:24pmatorvastatin 40 mg oral tablet (20 sources)HMG-CoA Reductase InhibitorStart: 57-96-6734jlqz 1 tablet by mouth once dailyatorvastatin (Lipitor) 40 MG tablet Indications: Mixed hyperlipidemia TAKE 1 TABLET BY MOUTH EVERY DAY 90 tablet 1 09/23/2024 ActiveStart: 08-04-2019 End: 70-05-2601gpiv 1 tablet by mouth once dailyatorvastatin (Lipitor) 40 MG tablet Indications: Mixed hyperlipidemia TAKE 1 TABLET BY MOUTH EVERY DAY 90 tablet 1 09/23/2024 Activebenzonatate 100 mg oral capsule (6 sources)Non-narcotic AntitussiveStart: 01-19-2024 End: 57-89-6349rfxl 1 capsule by mouth three times daily as needed for cough benzonatate (Tessalon Perles) 100 MG capsule Indications: Bronchitis Take 1 capsule (100 mg) by mouth 3 (three) times a day as needed for cough for up to 7 days Do not crush or chew. 20 capsule 01/19/2024 01/26/2024 ActiveStart: 02-19-2022 End: 48-99-9402tqqx 1 capsule by mouth three times daily as needed for cough benzonatate (TESSALON PERLES) 100 mg capsule Take 1 capsule (100 mg total) by mouth 3 (three) timesa day as needed for cough. 21 capsule 02/19/2022 06/03/2023 Itgjmyhfttho38 hr buPROPion hydrochloride 300 mg extended release oral tablet (20 sources)AminoketoneStart: 34-33-3280zmtq 1 tablet by mouth every twenty-four hours in the morningbuPROPion XL (WELLBUTRIN XL) 300 mg 24 hr tablet Indications: Severe episode of recurrent major depressive disorder, without psychotic features (CMS-HCC) Take 1 tablet (300 mg total) by mouth in the m orning. 90 tablet 3 09/23/2022 ActiveStart: 16-96-9167uhlz 1 tablet by mouth once dailyBupropion Hcl 300 mg tablet extended release 24 hr Active 300 MG PO Daily December 17, 2020 12:00am Complies with drug therapycephalexin 500 mg oral capsule (8 sources)Cephalosporin AntibacterialStart: 02-29-2024 End: 09-25-0576fxewaumczu (Keflex) 500 MG capsule Indications: Left leg cellulitis Take 1 capsule (500 mg) by mouth in the morning and 1 capsule (500 mg) at noon and 1 capsule (500 mg) in the evening and 1 capsule (500 mg) before bedtime. Do all this for 5 days. 20 capsule 02/29/2024 03/05/2024 Active End: 07-94-6215vtfyNGUObw (KEFLEX) 500 MG capsulecholecalciferol 0.05 mg oral tablet (20 sources)Vitamin DStart: 98-03-1333aqzp 1 tablet by mouth once daily Cholecalciferol (Vitamin D3) 50 mcg (2,000 unit) tablet Active 100 MCG PO Daily April 0641:00am Complies with drug therapyStart: 22-49-9043Iaagx: 91-08-0359sidv 1 capsule by mouth every weekStart: 32-67-4167evqy 1 capsule by mouth every weekCholecalciferol 1.25 MG (72024 UT) 1 capsule Orally weekly for 56 days Then OtC 4000 u daily therafter Jul, Activetake 2 tablets by mouth every twenty-four hoursVitamin D3 50 MCG (2000 UT) 2 tablets Orally Once a day Not-Taking/PRNtake 1 capsule by mouth every weekCholecalciferol 100 MCG (4000 UT) 1 capsule Orally weekly for 56 days Then OtC 4000 u daily therafter Activetake 1 capsule by mouth every weekCholecalciferol 50 MCG (2000 UT) 1 capsule Orally weekly for 56 days Then OtC 4000 u daily therafter Activetake 1 capsule by mouth every weekCholecalciferol 1.25 MG (55933 UT) 1 capsule Orally weekly for 56 days Then OtC 4000 u daily therafter Activeclotrimazole 10 mg/ml topical cream (20 sources)Azole AntifungalClotrimazole 1 % 1 application Externally Twice a day as needed ActiveClotrimazole 1 % 1 application Externally Twice a day Active doxycycline hyclate 100 mg oral tablet (5 sources)Tetracycline-class DrugStart: 09-14-2024 End: 55-10-8439fjha 1 tablet by mouth in the morningdoxycycline (Vibra-Tabs) 100 MG tablet Indications: Left leg cellulitis Take 1 tablet (100 mg) by mouth in the morning and 1 tablet (100 mg) before bedtime. Do all this for 10 days. Take with a full glass of water and do not lie down for at least 30 minutes after. 20 tablet 09/14/2024 09/24/2024 Sopuvr35 hr empagliflozin 12.5 mg / metFORMIN hydrochloride 1000 mg extended release oral tablet (5 sources)Biguanide, Sodium-Glucose Cotransporter 2 InhibitorStart: 02-03-2023 take 2 tablets by mouth once daily at breakfastSynjardy XR 12.5-1000 MG 2 tablets with breakfast Orally Once a day for 30 days samples in office x4-- knows to hold metformin while on samples Jan, Activetake 1 tablet by mouth at bedtimeEmpagliflozin-metFORMIN HCl ER (SYNJARDY XR) 12.5-1000 MG TB24 Take 1 tablet by mouth in the morning and at bedtime 0 Activeergocalciferol 1.25 mg oral capsule (20 sources)Provitamin D2 CompoundStart: 07-14-8779kopjtyhgbtrajl (Vitamin D2) 1.25 MG (14479 UT) capsule 08/01/2022 ActiveStart: 38-64-8290wwwb 1 capsule by mouth every weekergocalciferol (Vitamin D2) 1.25 MG (10585 UT) capsule TAKE 1 CAPSULE BY MOUTH WEEKLY FOR 56 DAYS 08/01/2022 ActiveERGOCALCIFEROL, VITAMIN D2, ORAL (2 sources)ERGOCALCIFEROL, VITAMIN D2, ORAL Take by mouth. Active hydroCHLOROthiazide 12.5 mg / lisinopril 20 mg oral tablet (2 sources)Thiazide Diuretic, Angiotensin Converting Enzyme Inhibitorlisinopril- hydroCHLOROthiazide (PRINZIDE;ZESTORETIC) 20-12.5 MG per tablet End: 03-37-2323ylrb 2 tablets by mouth once dailylisinopril-hydroCHLOROthiazide (PRINZIDE,ZESTORETIC) 20-12.5 mg per tablet Take 2 tablets by mouth daily. 06/03/2023 DiscontinuedhydroCHLOROthiazide 12.5 mg / losartan potassium 50 mg oral tablet (20 sources)Thiazide Diuretic, Angiotensin 2 Receptor BlockerStart: 05-24-2023 End: 45-22-8440vilj 1 tablet by mouth once dailylosartan-hydroCHLOROthiazide (Hyzaar) 50-12.5 MG tablet Indications: Primary hypertension Take 1 tablet by mouth Daily 90 tablet 1 06/16/2024 Activetake 1 tablet by mouth once in the morninglosartan-hydroCHLOROthiazide (HYZAAR) 50-12.5 mg per tablet Take 1 tablet by mouth in the morning. Activetake 1 tablet by mouth every twenty-four hours Losartan Potassium-HCTZ 50-12.5 MG 1 tablet Orally Once a day Activetake 1 tablet by mouth every twenty-four hourshydrOXYzine hydrochloride 10 mg oral tablet (20 sources)AntihistamineStart: 76-96-7399gzqs 1 tablet by mouth three times daily as neededHydroxyzine Hcl 10 mg tablet Active 10 MG PO Three times daily as needed May 11, 2023 12:00am Complies with drug therapyStart: 04-22-2023 End: 11-19-7795doci 1 capsule by mouth three times daily as neededhydrOXYzine pamoate (Vistaril) 25 MG capsule Take 25 mg by mouth 3 (three) times a day as needed 04/22/2023 05/31/2024 Discontinued (Therapy completed)Start: 04-22-2023 take 1 capsule by mouth four times daily as neededhydrOXYzine pamoate (VISTARIL) 25 MG capsule Take 1 capsule by mouth 4 times daily as needed 0 04/22/2023 Activetake 1 tablet by mouth every six hours as needed for anxietyhydrOXYzine HCl (Atarax) 25 MG tablet Take 25 mg by mouth every 6 (six) hours if needed for anxietyPRN Active3 ml insulin aspart, human 100 unt/ml pen injector (18 sources)Insulin AnalogStart: 93-27-0414UXKAQ FLEXTOUCH 100 UNIT/ML SOPN Inject into the skin 4 times daily (after meals and at bedtime) Inject per sliding scale 0 04/07/2023 ActiveStart: 04-07-2023 End: 25-03-2775Ckpgsno Aspart (Niacinamide) (Fiasp Flextouch U-100 Insulin) 100 unit/mL (3 mL) insulin pen Active 1 sliding scale dose SUBCUT Use as Directed May 11, 2023 1:00pm PAP approved thru 02/16/2024 Corrective scale AC/HS 1:50, QID. Expect up to 30 u per day Complies with drug therapy3 ml insulin degludec 100 unt/ml pen injector (20 sources)Insulin AnalogStart: 30-86-5576Qeysjmo Degludec (Tresiba Flextouch U-100) 100 unit/mL (3 mL) insulin pen Active 48 UNIT SUBCUT Daily December 30, 2023 10:53am PAP approved thru 02/16/2024 Complies with drug therapyStart: 09-23-2023 End: 35-84-3457Owuygdl Degludec (Tresiba Flextouch U-100) 100 unit/mL (3 mL) insulin pen Discontinued 50 UNIT SUBCUT Daily September 23, 2023 2:35pm December 30, 2023 10:54am PAP approved thru 02/16/2024Start: 07-69-9496wygaurr degludec (Tresiba) 100 UNIT/ML injection Indications: Type 2 diabetes mellitus with hyperglycemia, with long-term current use of insulin (HCC) Inject 48 Units under the skin at bedtime 05/16/2023 ActiveStart: 05-11-2023 End: 86-96-2135Hhzensh Degludec (Tresiba Flextouch U-100) 100 unit/mL (3 mL) insulin pen Discontinued 48 UNIT SUBCUT Daily May 11, 2023 12:57pm September 23, 2023 2:37pm PAP approved thru 02/16/2024Start: 05-11-2023 End: 34-91-6473Nowyves Degludec (Tresiba Flextouch U-100) 100 unit/mL (3 mL) insulin pen Discontinued 50 UNIT SUBCUT Daily May 11, 2023 11:44am May 11, 2023 1:01pmStart: 04-06-2023 End: 22-65-5835Uvuatyr Degludec (Tresiba Flextouch U-100) 100 unit/mL (3 mL) insulin pen Discontinued 54 UNIT SUBCUT Daily April 06, 2023 1:00am May 11, 2023 11:50amStart: 46-27-2584udicao 54 [IU] by subcutaneous injection once daily as neededTresiba FlexTouch 200 UNIT/ML 54 units daily Subcutaneous Daily for 90 days Mar, Not-Taking/PRNStart: 82-21-8991Mbwodtw FlexTouch 100 UNIT/ML 54 u Subcutaneous daily for 90 days Oct, ActiveStart: 09-20-2021 inject 44 [IU] by subcutaneous injection once dailyTresiba FlexTouch 100 UNIT/ML 44 u Subcutaneous daily for 90 days Titrate up to 70 u per day Sep, ActiveInsulin Degludec 100 UNIT/ML SOLN Inject 52 mg into the skin daily 0 Activeinject 52 mg by subcutaneous injection in the morninginsulin degludec (TRESIBA FLEXTOUCH U-100 SUBQ) Inject 52 mg under the skin in the morning. ActiveInsulin Degludec (Tresiba Flextouch U-100) 100 unit/mL (3 mL) insulin pen (20 sources)Start: 05-13-5777Mizqeta Degludec (Tresiba Flextouch U-100) 100 unit/mL (3 mL) insulin pen Active 48 UNIT SUBCUT Daily December 30, 2023 10:53am PAP approved thru 02/16/2024Start: 57-16-6339Slviugm Degludec (Tresiba Flextouch U-100) 100 unit/mL (3 mL) insulin pen Active 48 UNIT SUBCUT Daily December 30, 2023 9:53am PAP approved thru 02/16/2024Start: 09-23-2023 End: 76-05-7118Zbthmfj Degludec (Tresiba Flextouch U-100) 100 unit/mL (3 mL) insulin pen Discontinued 50 UNIT SUBCUT Daily September 23, 2023 2:35pm December 30, 2023 10:54am PAP approved thru 02/16/2024Start: 09-23-2023 End: 41-93-9662Ycvbjro Degludec (Tresiba Flextouch U-100) 100 unit/mL (3 mL) insulin pen Discontinued 50 UNIT SUBCUT Daily September 23, 2023 1:35pm December 30, 2023 9:54am PAP approved thru 02/16/2024Start: 88-37-6017Tqryugr Degludec (Tresiba Flextouch U-100) 100 unit/mL (3 mL) insulin pen Active 50 UNIT SUBCUT Daily September 23, 2023 2:35pm PAP approved thru 02/16/2024Start: 05-11-2023 End: 07-40-7440Xrarerr Degludec (Tresiba Flextouch U-100) 100 unit/mL (3 mL) insulin pen Discontinued 48 UNIT SUBCUT Daily May 11, 2023 11:57am September 23, 2023 1:37pm PAP approved thru 02/16/2024Start: 05-11-2023 End: 98-15-4501Gteipvk Degludec (Tresiba Flextouch U-100) 100 unit/mL (3 mL) insulin pen Discontinued 48 UNIT SUBCUT Daily May 11, 2023 12:57pm September 23, 2023 2:37pm PAP approved thru 02/16/2024Start: 78-90-4667Mzuvmpj Degludec (Tresiba Flextouch U-100) 100 unit/mL (3 mL) insulin pen Active 48 UNIT SUBCUT Daily May 11, 2023 12:57pm PAP approved thru 02/16/2024Start: 05-11-2023 End: 56-11-8157Tahcvxm Degludec (Tresiba Flextouch U-100) 100 unit/mL (3 mL) insulin pen Discontinued 50 UNIT SUBCUT Daily May 11, 2023 10:44am May 11, 2023 12:01pmStart: 05-11-2023 End: 03-08-4862Gvjgpkl Degludec (Tresiba Flextouch U-100) 100 unit/mL (3 mL) insulin pen Discontinued 50 UNIT SUBCUT Daily May 11, 2023 11:44am May 11, 2023 1:01pmStart: 23-95-5904Csobkjk Degludec (Tresiba Flextouch U-100) 100 unit/mL (3 mL) insulin pen Active 50 UNIT SUBCUT Daily May 11, 2023 11:44am Start: 04-06-2023 End: 28-63-0976Fzphlef Degludec (Tresiba Flextouch U-100) 100 unit/mL (3 mL) insulin pen Discontinued 54 UNIT SUBCUT Daily April 06, 2023 12:00am May 11, 2023 10:50amStart: 04-06-2023 End: 71-71-3624Ykbkbih Degludec (Tresiba Flextouch U-100) 100 unit/mL (3 mL) insulin pen Discontinued 54 UNIT SUBCUT Daily April 06, 2023 1:00am May 11, 2023 11:50amStart: 45-25-7057Jexzkfp Degludec (Tresiba Flextouch U-100) 100 unit/mL (3 mL) insulin pen Active 54 UNIT SUBCUT Daily April 06, 2023 12:00amisopropyl alcohol 0.7 ml/ml medicated pad (1 source)Alcohol Swabs PADSmegestrol acetate 40 mg oral tablet (1 source)ProgestinStart: 06-26-2023 End: 29-92-3174uxwa 4 tablets by mouth twice dailymegestrol (MEGACE) 40 MG tablet Indications: Endometrial cancer (HCC) Take 4 tablets by mouth 2 times daily 240 tablet 0 06/26/2023 07/26/2023 Activemeloxicam 15 mg oral tablet (16 sources)Nonsteroidal Anti-inflammatory DrugStart: 21-22-3146mcht 1 tablet by mouth once dailymeloxicam (Mobic) 15 MG tablet Indications: Left hip pain Take 1 tablet (15 mg) by mouth Daily 30 tablet 10/24/2024 ActiveStart: 99-12-0738gait 1 tablet by mouth once dailymeloxicam (Mobic) 15 MG tablet Indications: Left hip pain Take 1 tablet (15 mg) by mouth Daily 30 tablet 08/30/2024 Active metFORMIN hydrochloride 1000 mg oral tablet (20 sources)BiguanideStart: 89-58-9879tisy 1 tablet by mouth twice daily at mealtimeMetformin 1,000 mg tablet Active 0 .ROUTE .COMPLEX 200 December 21, 2023 8:57am TAKE 1 TABLET BY MOUTH TWICE DAILY WITH A MEAL Complies with drug therapyStart: 12-17-2020 End: 32-22-4439yqyr 1 tablet by mouth twice dailyMetformin 1,000 mg tablet Discontinued 1000 MG PO Twice daily December 17, 2020 12:00am December 21, 2023 8:57ammetFORMIN (Glucophage) 1000 MG tablet 1 (one) time each day at the same time Activetake 1 tablet by mouth in the morning, then take 2 tablets by mouth in the morning, then take 1 tablet by mouth in the eveningmetFORMIN (GLUCOPHAGE) 500 mg tablet Take 1 tablet (500 mg total) by mouth in the morning. 2 TABS IN AM AND 1 TAB IN EVENING.. Activemetoprolol tartrate 25 mg oral tablet (20 sources)beta-Adrenergic BlockerStart: 77-41-8250ctnv 1 tablet by mouth in the morningmetoprolol tartrate (Lopressor) 25 MG tablet Indications: Primary hypertension Take 1 tablet (25 mg) by mouth in the morning and 1 tablet (25 mg) in the evening. Take with meals. 180 tablet 3 01/13/2024 ActiveStart: 12-25-2022 End: 35-31-2622vxac 1 tablet by mouth in the morningmetoprolol tartrate (Lopressor) 25 MG tablet Indications: Primary hypertension Take 1 tablet (25 mg) by mouth in the morning and 1 tablet (25 mg) in the evening. Take with meals. 180 tablet 3 01/13/2024 Activemupirocin 0.02 mg/mg topical ointment (1 source)RNA Synthetase Inhibitor Antibacterialmupirocin (BACTROBAN) 2 % ointment Apply 1 each topically daily Apply to each nare daily 0 Active nortriptyline 50 mg oral capsule (20 sources)Tricyclic AntidepressantStart: 78-21-4898rpir 150 mg by mouth once dailyNortriptyline Active 150 MG PO Daily May 11, 2023 11:45amStart: 50-94-4975ohar 2 capsules by mouth once dailynortriptyline (PAMELOR) 50 MG capsule Take 2 capsules by mouth nightly 0 03/26/2023 ActiveStart: 03-26-2023 take 3 capsules by mouth once dailynortriptyline (PAMELOR) 50 mg capsule Indications: Severe episode of recurrent major depressive disorder, without psychotic features (CMS-HCC) Take 3 capsules (150 mg total) by mouth nightly. 270 capsule 1 03/26/2023 ActiveStart: 12-17-2020 End: 15-61-8940hjpm 1 capsule by mouth once dailyNortriptyline 50 mg capsule Discontinued 100 MG PO Daily April 06, 2023 5:24pm May 11, 2023 11:50am Start: 12-17-2020 End: 96-96-1914xewh 100 mg by mouth once dailyNortriptyline Discontinued 100 MG PO Daily April 06, 2023 5:24pm May 11, 2023 11:50amtake 1 capsule by mouth every twenty-four hoursNortriptyline HCl 75 MG 1 capsule Orally Once a day Activenystatin 100 unt/mg topical powder (20 sources)Polyene AntifungalStart: 04-79-4853Poxkqbgn 027518 UNIT/GM powder APPLY EXTERNALLY TO AFFECTED SKIN AREAS TWICE DAILY NEEDED 05/03/2024 Active Start: 28-56-0418rwwabysw (MYCOSTATIN) 917400 UNIT/GM powder Indications: Kelsea albicans infection Apply 2 times daily to abdominal and breast folds 60 g 0 06/15/2023 Activeomeprazole 20 mg delayed release oral capsule (20 sources)Proton Pump InhibitorStart: 12-17-2020 End: 68-73-5295eyjn 1 capsule by mouth once daily at bedtimeOmeprazole 20 mg capsule,delayed release(DR/EC) Active 20 MG PO Daily at bedtime April 06, 2023 5:23pm Complies with drug therapy End: 97-52-2070srso 1 tablet by mouth once dailyomeprazole 20 MG EC tablet Take 1 tablet by mouth daily 0 Activetake 1 tablet by mouth at bedtimePriLOSEC OTC 20 MG 1 tablet Orally bedtime for 30 day(s) Activetake 1 tablet by mouth twice dailyPriLOSEC OTC 20 MG 1 tablet Orally Twice a day for 30 day(s) Active2 ml ondansetron 2 mg/ml injection (1 source)Serotonin-3 Receptor AntagonistStart: 89-12-6700qumjwkpvbls (ZOFRAN) injection 4 mgOzempic (2 MG/DOSE) 8 MG/3ML (3 sources)Start: 91-60-2972corskd 2 mg by subcutaneous injection every week Ozempic (2 MG/DOSE) 8 MG/3ML 2 mg Subcutaneous weekly for 90 days June, ActivepredniSONE 20 mg oral tablet (2 sources)Start: 11-20-2023 End: 22-76-0059vcvo 2 tablets by mouth once daily, then take 1 tablet by mouth once daily at mealtimepredniSONE (Deltasone) 20 MG tablet Indications: Acute pain of left knee Take 2 tablets (40 mg) by mouth Daily for 5 days, THEN 1 tablet (20 mg) Daily for 5 days. Take with food. 15 tablet Activepregabalin 75 mg oral capsule (20 sources)Start: 01-69-8752btoq 1 capsule by mouth twice dailyPregabalin 75 mg capsule Active 75 MG PO Twice daily April 06, 2023 1:00am Complies with drug therapy1 mg dose 1.5 ml semaglutide 1.34 mg/ml pen injector (2 sources)Start: 37-80-7009KVXXHNL 1 mg/dose (2 mg/1.5 mL) pen injector 05/07/2020 ActiveSemaglutide (8 sources)Start: 48-99-5958nkxmmw 2 mg by subcutaneous injection every week Semaglutide (Ozempic) 2 mg/dose (8 mg/3 mL) pen injector Active 2 MG SUBCUT every week April 28, 2024 11:25am *PT TO USE JAYSON [employer] PATIENT ASSISTANCE VOUCHER FOR 1 MONTH SUPPLY Complies with drug therapyStart: 13-63-5105cfkcuz 2 mg by subcutaneous injection every weekStart: 03-30-2024 End: 61-80-6154votaim 2 mg by subcutaneous injection every weekSemaglutide (Ozempic) 2 mg/dose (8 mg/3 mL) pen injector Discontinued 2 MG SUBCUT every week 3 March 30, 2024 11:03am April 28, 2024 11:27am JAYSON NORDISK PATIENT ASSISTANCEStart: 05-11-2023 End: 49-19-4411ypcpwi 2 mg by subcutaneous injection every weekSemaglutide (Ozempic) 2 mg/dose (8 mg/3 mL) pen injector Discontinued 2 MG SUBCUT every week May 11, 2023 1:01pm March 30, 2024 11:05am PAP approved thru 02/16/2024Start: 04-06-2023 End: 60-04-0322tzppjz 2 mg by subcutaneous injection every weekSemaglutide (Ozempic) 2 mg/dose (8 mg/3 mL) pen injector Discontinued 2 MG SUBCUT every week April 06, 2023 1:00am May 11, 2023 1:01pmSemaglutide (Ozempic) 2 mg/dose (8 mg/3 mL) pen injector (18 sources)Start: 25-77-0691yikfxb 2 mg by subcutaneous injection every week Semaglutide (Ozempic) 2 mg/dose (8 mg/3 mL) pen injector Active 2 MG SUBCUT every week 3 April 28, 2024 11:25am *PT TO USE JAYSON M-DISC PATIENT ASSISTANCE VOUCHER FOR 1 MONTH SUPPLYStart: 03-30-2024 End: 33-98-3679bvazqb 2 mg by subcutaneous injection every weekSemaglutide (Ozempic) 2 mg/dose (8 mg/3 mL) pen injector Discontinued 2 MG SUBCUT every week 3 March 30, 2024 11:03am April 28, 2024 11:27am JA[employer]ON [employer] PATIENT ASSISTANCEStart: 05-11-2023 End: 24-24-8772cbgyhs 2 mg by subcutaneous injection every weekSemaglutide (Ozempic) 2 mg/dose (8 mg/3 mL) pen injector Discontinued 2 MG SUBCUT every week May 11, 2023 1:01pm March 30, 2024 11:05am PAP approved thru 02/16/2024Start: 80-93-2203zsrpat 2 mg by subcutaneous injection every week Semaglutide (Ozempic) 2 mg/dose (8 mg/3 mL) pen injector Active 2 MG SUBCUT every week May 11, 2023 12:01pm PAP approved thru 02/16/2024Start: 78-31-7738mrpcaj 2 mg by subcutaneous injection every weekSemaglutide (Ozempic) 2 mg/dose (8 mg/3 mL) pen injector Active 2 MG SUBCUT every week May 10 1:01pm PAP approved thru 02/16/2024Start: 04-06-2023 End: 43-96-5758hcdlew 2 mg by subcutaneous injection every weekSemaglutide (Ozempic) 2 mg/dose (8 mg/3 mL) pen injector Discontinued 2 MG SUBCUT every week April 06, 2023 12:00am May 11, 2023 12:01pmStart: 04-06-2023 End: 92-15-1829wqsxts 2 mg by subcutaneous injection every weekSemaglutide (Ozempic) 2 mg/dose (8 mg/3 mL) pen injector Discontinued 2 MG SUBCUT every week April 06, 2023 1:00am May 11, 2023 1:01pmStart: 04-41-6866kqcjtn 2 mg by subcutaneous injection every weekSemaglutide (Ozempic) 2 mg/dose (8 mg/3 mL) pen injector Active 2 MG SUBCUT every week April 06, 2023 1:00amStart: 60-42-8957qheeef 2 mg by subcutaneous injection every weekSemaglutide (Ozempic) 2 mg/dose (8 mg/3 mL) pen injector Active 2 MG SUBCUT every week April 06, 2023 12:00amSemaglutide, 2 MG/DOSE, (Ozempic, 2 MG/DOSE,) 8 MG/3ML solution pen-injector (20 sources)inject 2 mg by subcutaneous injection every weekSemaglutide, 2 MG/DOSE, (Ozempic, 2 MG/DOSE,) 8 MG/3ML solution pen-injector Inject 2 mg under the skin 1 (one) time per week Activeinject 2 mg by subcutaneous injection every weekSemaglutide, 2 MG/DOSE, (Ozempic, 2 MG/DOSE,) 8 MG/3ML solution pen- injector Inject 2 mg under the skin 1 (one) time per week. Activesemaglutide, 2 MG/DOSE, (OZEMPIC, 2 MG/DOSE,) 8 MG/3ML SOPN sc injection (1 source)semaglutide, 2 MG/DOSE, (OZEMPIC, 2 MG/DOSE,) 8 MG/3ML SOPN sc injection Inject 2 mg into the skin once a week 0 Active5 ml sodium chloride 9 mg/ml injection (5 sources)Start: 75-38-1799lehcwt chloride flush 0.9 % injection mLStart: 08-86-4665faiasz chloride flush 0.9 % injection mLStart: 06-30-2023 End: .9 % sodium chloride infusiontiZANidine 4 mg oral tablet (20 sources)Central alpha-2 Adrenergic AgonistStart: 09-16-2022 End: 43-69-8035hcTLNyjgmq (Zanaflex) 4 MG tablet 09/16/2022 Activetake 1 tablet by mouth every six hours as neededtiZANidine (ZANAFLEX) 4 mg tablet Take 1 tablet (4 mg total) by mouth every 6 (six) hours as neededfor muscle spasms. Activetopiramate 100 mg oral tablet (1 source)topiramate (TOPAMAX) 100 MG tablet 1 tablet 0 ActivetraMADol hydrochloride 50 mg oral tablet (13 sources)Opioid AgonistStart: 30-87-7452kvoILSqj (Ultram) 50 MG tablet 50 mg 09/08/2024 Active Completed/Discontinued Medications MedicationDrug Class(es)DatesSig (Normalized)Sig (Original)acetaminophen 325 mg / HYDROcodone bitartrate 5 mg oral tablet (20 sources)Opioid AgonistStart: 12-17-2020 End: 41-93-5704xbke 1 tablet by mouth twice daily as needed for painHydrocodone- Acetaminophen 5-325 mg tablet Discontinued 1 TAB PO Twice daily as needed for Pain December 17, 2020 12:00am January 02, 2021 11:17pm End: 41-33-8695XVJMAgegawc-acetaminophen (NORCO) 5-325 MG per tablet Take 1 tablet by mouth every 6 hours as needed for Pain. Max Daily Amount: 4 tablets 0 06/30/2023 Discontinued (Stop Taking at Discharge)take 1 tablet by mouth every six hoursNorco Activetake 1 tablet by mouth twice daily as neededNorco 5-325 MG 1 tablet as needed Orally bid Hktintrew388401 200 actuat albuterol 0.09 mg/actuat metered dose inhaler (20 sources)beta2-Adrenergic AgonistStart: 01-19-2024 End: 42-96-5813bfww 2 puff(s) by inhalation every four hours for wheezing albuterol HFA 90 mcg/act inhaler Indications: Wheezing Inhale 2 puffs every 4 (four) hours if needed for wheezing 18 g 01/19/2024 05/31/2024 Discontinued (Therapy completed)ALPRAZolam 0.5 mg oral tablet (20 sources)Benzodiazepine End: 04-93-7739TNNVTYberr (Xanax) 0.5 MG tablet daily as needed 05/31/2024 Discontinued (Therapy completed)ALPRAZOLAM ORAL Take by mouth. Activebaclofen 10 mg oral tablet (20 sources)gamma-Aminobutyric Acid-ergic AgonistStart: 12-17-2020 End: 47-28-3604dysa 1 tablet by mouth once daily at bedtimeBaclofen 10 mg tablet Discontinued 10 MG PO Daily at bedtime December 17, 2020 12:00am October 302022 9:54amtake 1 tablet by mouth three times dailybaclofen (LIORESAL) 10 MG tablet Take 1 tablet by mouth 3 times daily 0 Activetake 1 tablet by mouth every twelve hoursBaclofen 10 MG 1 tablet with food or milk Orally Twice a day for 30 day(s) Not-Taking/PRNbenzocaine 6 mg / menthol 10 mg oral lozenge (1 source)Standardized Chemical AllergenStart: 02-19-2022 End: 83-84-9692mzxx 1 tablet by mouth every two hours as neededbenzocaine- menthoL (CHLORASEPTIC SORE THROAT) 6-10 mg lozenge Dissolve 1 lozenge in the mouth every2 (two) hours as needed for sore throat. 100 tablet 02/19/2022 06/03/2023 Discontinued5 ml bupivacaine hydrochloride 5 mg/ml injection (4 sources)Amide Local AnestheticStart: 12-29-2023 End: 84-62-6957yfwlztxxzrk PF (Marcaine) 0.5 % injection 0.5 mLStart: 12-29-2023 End: 40.5 mL, Once PRN Procedure, Starting on Thu12/29/23 at 1100, For 1 dosediazePAM 5 mg oral tablet (20 sources)BenzodiazepineStart: 03-02-2024 End: 40-98-8775iltvaYAW (Valium) 5 MG tablet Indications: History of claustrophobia 1 tab 30-60 mins before procedure may repeat X1 if need for claustrophobia 2 tablet 03/02/2024 05/31/2024 Discontinued (Therapy completed) empagliflozin 25 mg oral tablet (20 sources)Sodium-Glucose Cotransporter 2 InhibitorStart: 54-30-0042gwrp 25 mg by mouth once dailyEmpagliflozin Active 25 MG PO Daily April 06, 2023 12:00amStart: 19-73-6892mxgs 1 tablet by mouth every twenty-four hoursStart: 05-10-2020 End: 17-06-8756ibzu 1 tablet by mouth once dailyEmpagliflozin (Jardiance) 10 mg tablet Discontinued 20 MG PO Daily December 17, 2020 12:00am April 06, 2023 5:13pmfluocinonide 1 mg/ml topical cream (15 sources)CorticosteroidStart: 12-17-2020 End: 16-02-8596Kkppfnfpavtf 0.1 % Cream Discontinued 1 APPLIC TOPICAL 2-4 TIMES PER DAY as needed for irritation December 17, 2020 12:00am December 30, 2023 10:52amfurosemide 20 mg oral tablet (20 sources)Loop DiureticStart: 08-03-2019 End: 88-19-5652uuozhvhlcw (LASIX) 20 mg tablet 08/03/2019 06/03/2023 Discontinuedgabapentin 300 mg oral capsule (20 sources)Anti-epileptic Agent End: 53-16-1359tzzdspxmkq (Neurontin) 300 MG capsule 05/31/2024 Discontinued (Therapy completed)GABAPENTIN ORAL Take by mouth. ActiveglipiZIDE 10 mg oral tablet (1 source)SulfonylureaStart: 12-30-2018 End: 96-28-3855cdxchYZJM (GLUCOTROL) 10 mg tablet 12/30/2018 06/03/2023 DiscontinuedguaiFENesin 20 mg/ml oral solution (1 source)Start: 02-19-2022 End: 96-33-8501myvh 100-200 mg by mouth every four hours as needed for cough guaiFENesin (ROBITUSSIN) 100 mg/5 mL syrup Take 5-10 mL (100-200 mg total) by mouth every 4 (four) hours as needed for cough. 118 mL 02/19/2022 06/03/2023 Discontinuedibuprofen 800 mg oral tablet (3 sources)Nonsteroidal Anti-inflammatory DrugStart: 02-19-2022 End: 49-40-7902vbgy 1 tablet by mouth every eight hours as needed for pain ibuprofen (MOTRIN) 800 mg tablet Take 1 tablet (800 mg total) by mouth every 8 (eight) hours as needed for pain. 21 tablet 02/19/2022 06/03/2023 Discontinued take 1 tablet by mouth three times daily as needed for pain and painibuprofen (ADVIL,MOTRIN) 600 mg tablet Indications: osteoarthritis , pain Take 1 tablet (600 mg total) by mouth 3 (three) times a day as needed for pain Indications: joint damage causing pain and loss of function, pain. Active3 ml insulin glargine 100 unt/ml pen injector (20 sources)Insulin AnalogStart: 99-67-0094Yokcatm Glargine (Basaglar Kwikpen U- 100 Insulin) 100 unit/mL (3 mL) insulin pen Active 0 SUBCUT Daily at bedtime April 06, 2023 4:20pm 60 units subcutaneously daily at bedtime; can titrate up to 70 unitsStart: 12-17-2020 End: 36-77-4081Xmxdhrb Glargine (Basaglar Kwikpen U-100 Insulin) 100 unit/mL (3 mL) insulin pen Discontinued 55 UNIT SUBCUT Daily at bedtime December 17, 2020 12:00am April 06, 2023 5:32pminject 60 [IU] by subcutaneous injection once daily as needed, then inject 70 [IU] by subcutaneous injection once daily as neededBasaglar KwikPen 100 UNIT/ML 60 units daily but could titrate up to 70 units if necessary. Subcutaneous Daily for 30 days Not-Taking/PRNBasaglar KwikPen 100 UNIT/ML 68 units and follow sliding scale. Max 74 units a day. Subcutaneous Daily Activelidocaine 0.05 mg/mg medicated patch (12 sources)Antiarrhythmic, Amide Local AnestheticStart: 15-50-1907Fpgttyrvw 5 % 1 patch remove after 12 hours Externally Once a day for 30 days Jul, Not-Taking/PRNStart: 59-48-7645pgwfnisiak 30 mg oral tablet (20 sources)Angiotensin Converting Enzyme InhibitorStart: 12-17-2020 End: 64-05-8828ptiu 1 tablet by mouth once dailyLisinopril 30 mg tablet Discontinued 30 MG PO Daily December 17, 2020 12:00am April 06, 2023 5 :25pmtake 1 tablet by mouth every twenty-four hoursLisinopril 40 mg 1 tab(s) Orally Once a day Not-Taking/PRNmethocarbamol 500 mg oral tablet (1 source)Muscle Relaxant End: 96-29-6226txrrhgatrquuz (ROBAXIN) 500 MG tabletoxyCODONE hydrochloride 10 mg oral tablet (2 sources)Opioid Agonist End: 81-03-7266aqid 1 tablet by mouth three times dailyoxyCODONE (OXY-IR) 15 MG immediate release tablet Take 1 tablet by mouth 3 times daily. Max Daily Amount: 45 mg 0 06/30/2023 Discontinued (Stop Taking at Discharge) End: 58-63-7211avql 1 tablet by mouth every six hours as needed for pain oxyCODONE HCl (OXY-IR) 10 MG immediate release tablet Take 1 tablet by mouth every 6 hours as needed for Pain. Max Daily Amount: 40 mg 0 06/30/2023 Discontinued (Stop Taking at Discharge)ozempic (2 mg/dose) 8 mg/3ml solution pen-injector (6 sources)Start: 05-59-9649osymkg 2 mg by subcutaneous injection every week as neededOzempic (2 MG/DOSE) 8 MG/3ML 2 mg Subcutaneous weekly for 90 days June, Not-Taking/PRNinject 2 mg by subcutaneous injection every weekOzempic (2 MG/DOSE) 8 MG/3ML 2 mg Subcutaneous weekly for 90 days PAP Activepropranolol hydrochloride 10 mg oral tablet (15 sources)beta-Adrenergic BlockerStart: 12-17-2020 End: 04-57-4200Ioxulqaibmv 10 mg tablet Discontinued MG December 17, 2020 12:00am December 17, 2020 11:44amStart: 12-17-2020 End: 25-57-7564Dzabenyxznk Discontinued MG TABLET December 17, 2020 12:00am December 17, 2020 11:44amSemaglutide (15 sources)Start: 12-17-2020 End: 66-21-4942ovmref 1 mg by subcutaneous injection every weekSemaglutide (Ozempic) 1 mg/dose (4 mg/3 mL) pen injector Discontinued 1 MG SUBCUT every week December 17, 2020 12:00am April 06, 2023 5:12pmStart: 12-17-2020 End: 43-63-6579uyjgdp 1 mg by subcutaneous injection every weekSemaglutide (Ozempic) 1 mg/dose (4 mg/3 mL) pen injector Discontinued 1 MG SUBCUT every week December 16, 2020 11:00pm April 06, 2023 4:12pmStart: 30-88-2466rzgcxb 1 mg by subcutaneous injection every weekSemaglutide (Ozempic) 1 mg/dose (4 mg/3 mL) pen injector Active 1 MG SUBCUT every week December 16, 2020 11:00pmStart: 42-20-2281qwawdp 1 mg by subcutaneous injection every weekSemaglutide (Ozempic) 1 mg/dose (4 mg/3 mL) pen injector Active 1 MG SUBCUT every week December 17, 2020 12:00amTher[facility] - (12 sources)[facility] - as directed Topical Daily for 30 days Not-Taking/PRNThermaCare Back Pain Therapy - as directed Topical Daily for 30 days Not-TakingThermaCare Back Pain Therapy - as directed Topical Daily for 30 days Active Problems Active Problems Problem ClassificationProblemDateDocumented DateEpisodic/ChronicAcute and unspecified renal failure (20 sources)Acute renal failure syndrome; Translations: [HEMANTH (acute kidney injury)]EpisodicAdministrative/social admission (20 sources)Dietary counseling and surveillance; Translations: [Patient encounter status]Onset: 11-21-2020 Resolved: 05-34-2105EhxmnsldInuyudw disorders (20 sources)Anxiety disorder, unspecified; Translations: [Generalized anxiety disorder]Onset: 500926-38-4677XbbaedgAilkyn of uterus (20 sources)Malignant neoplasm of endometrium; Translations: [Malignant neoplasm of endometrium of corpus uteri]Onset: 112636-03-8958LyeepsuLjmdqy of uterus (2 sources)H/O: malignant neoplasm; Translations: [Personal history of malignant neoplasm of other parts of uterus]64-55-2620TflvazunIkmmgqt kidney disease (20 sources)Chronic kidney disease stage 2; Translations: [Chronic kidney disease, stage 2 (mild)]Onset: 380072-71-9732JzjwdwdTycgcos obstructive pulmonary disease and bronchiectasis (2 sources)Bronchitis; Translations: [Bronchitis, not specified as acute or chronic]52-71-6969JdgoxivdRyfhuiaovl and other anemia (7 sources)Iron deficiency anemia; Translations: [Iron deficiency anemia, unspecified]Onset: 366810-64-4361QlcntmnlZbqwhsgl mellitus with complications (20 sources)Hyperglycemia due to type 2 diabetes mellitus; Translations: [Type 2 diabetes mellitus with hyperglycemia]Onset: 11-21-2020 Resolved: 76-51-9113VmqcehnCnxmlyh on above:Download and evaluation of Meter. Diabetes mellitus without complication (20 sources)Type 2 diabetes mellitus without complications; Translations: [Type 2 diabetes mellitus without complication]Onset: hronic Disorders of lipid metabolism (20 sources)Hyperlipidemia; Translations: [Hyperlipidemia, unspecified]Onset: 11-21-2020 Resolved: 04-70-2263DtwbnooNhcylhnzkg disorders (20 sources)Gastro-esophageal reflux disease without esophagitis; Translations: [Gastroesophageal reflux disease without esophagitis]Onset: ChronicEssential hypertension (20 sources)Essential (primary) hypertension; Translations: [Benign essential hypertension]Onset: 02-23-2008 Resolved: 02-20-5465FztakfnOnhoblzrjejqx symptoms and ill-defined conditions (7 sources)Proteinuria, unspecified; Translations: [Dysuria]Onset: 11-21-2020 Resolved: 19-77-3325ShnyaquzOkrms valve disorders (20 sources)Aortic valve stenosis; Translations: [Nonrheumatic aortic (valve) stenosis]Onset: 654584-05-3604PjlhwuaWdcqaqqiryzeq and screening for infectious disease (2 sources)Vaccination needed; Translations: [Encounter for immunization] 41-96-4676NhcqcbjwKtvfz disorders and dislocations; trauma-related (20 sources)Derangement of left knee; Translations: [Unspecified internal derangement of left knee]Onset: 922727-59-9867PwxjucmFqpn disorders (20 sources)Recurrent major depression in partial remission; Translations: [Major depressive disorder, recurrent, in partial remission]Onset: 11-13-2016 21-53-5023PpupbpmKvtrydyriqd deficiencies (20 sources)Vitamin D deficiency; Translations: [Vitamin D deficiency, unspecified]Onset: 07-04-2021 Resolved: 44-65-1003DliynrbUksoumvxsgjvzc (20 sources)Unilateral primary osteoarthritis, right knee; Translations: [Osteoarthritis of left knee joint]Onset: hronic Osteoporosis (14 sources)Senile osteoporosis; Translations: [Age-related osteoporosis without current pathological fracture]ChronicOther aftercare (4 sources)Aftercare following joint replacement surgery; Translations: [AFTERCARE FOLLOWING JOINT REPLACEMENTSURGERY]Onset: 69-44-0234RcgvebxSqzbs aftercare (15 sources)USP (current) use of insulin; Translations: [Long-term (current) use of insulin]Onset: 11-21-2020 Resolved: 95-63-4112IhcirfanEzces aftercare (5 sources)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 status; 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]60-06-7095GfnttfnpMcmsl bone disease and musculoskeletal deformities (2 sources)Pain in femur; Translations: [Other specified disorders of bone, thigh]31-15-9128QaprkopoFrjuo connective tissue disease (1 source)Presence of right artificial knee joint; Translations: [PRESENCE OF RIGHT ARTIFICIAL KNEE JOINT]Onset: 03-37-5388ZgatyuqMgggy connective tissue disease (15 sources)History of total knee arthroplasty; Translations: [Presence of left artificial knee joint]91-12-8541ThoomwuBaeww connective tissue disease (20 sources)Artificial knee joint present; Translations: [Presence of unspecified artificial knee joint]Onset: 944727-90-0219YewurwdVvbst connective tissue disease (1 source)Pain in left legEpisodicOther connective tissue disease (3 sources)Arthrodesis statusEpisodicOther connective tissue disease (9 sources)History of lumbar fusion; Translations: [Arthrodesis status]Episodic Other connective tissue disease (2 sources)Non-traumatic partial tear of right rotator cuff; Translations: [Incomplete rotator cuff tear or rupture of right shoulder, not specified as traumatic]63-23-7430PdkuxnvsMqupp connective tissue disease (2 sources)Bursitis of left foot; Translations: [Other enthesopathy of left foot and ankle]27-69-6376TublyrsyWxepe connective tissue disease (2 sources)Pain in left foot; Translations: [Pain in left foot]05-23-2024 EpisodicOther connective tissue disease (1 source)Complete rotator cuff tear or rupture of right shoulder, not specified as traumatic; Translations: [Complete rotator cuff tear or rupture of right shoulder, not specified as traumatic]Onset: 87-19-7961OoqzceaoFnupl connective tissue disease (2 sources)Pain in lower limbOnset: 30-41-5769HksangvaQeplo inflammatory condition of skin (20 sources)Erythrodermic psoriasis; Translations: [Other psoriasis]Onset: 983789-05-5554FvlvimeZvphx lower respiratory disease (4 sources)Wheezing; Translations: [Wheezing]09-28-4812TelqodxwVnvfj lower respiratory disease (2 sources)Dyspnea; Translations: [Shortness of breath]52-82-2395KyfptnpmSiwsf nervous system disorders (4 sources)Other specified mononeuropathies of right lower limb; Translations: [OTH SPEC MONONEUROPATH RT LOW LIMB]Onset: 38-95-6185OmhvntrSoglp nervous system disorders (2 sources)Other chronic pain; Translations: [OTHER CHRONIC PAIN]Onset: 52-34-6656NgyceniQlsro nervous system disorders (6 sources)Chronic pain; Translations: [Other chronic pain]ChronicOther nervous system disorders (20 sources)Carpal tunnel syndrome; Translations: [Carpal tunnel syndrome, unspecified upper limb]Onset: 803525-79-3492TlmgtdeYhhvc nervous system disorders (20 sources)Chronic pain syndrome; Translations: [Chronic pain syndrome]Onset: 340139-82-8209ClclhhuTokoh nervous system disorders (20 sources)Difficulty walking; Translations: [Difficulty in walking, not elsewhere classified]Onset: 269365-88-3836LiarwubPsonj nervous system disorders (7 sources)Neuropathy; Translations: [Polyneuropathy, unspecified]Onset: 933724-93-2561AyhwgqqRrvyl nervous system disorders (9 sources)Tremor; Translations: [Tremor, unspecified]EpisodicOther nervous system disorders (1 source)Tremor, unspecifiedEpisodicOther non-traumatic joint disorders (2 sources)Arthritis of right acromioclavicular -41-2332MtfnqfdNmwet non- traumatic joint disorders (2 sources)Derangement of right shoulder joint; Translations: [Other specific joint derangements of right shoulder, not elsewhere classified]59-44-7984Zmxuore Other non-traumatic joint disorders (1 source)Other specific joint derangements of right shoulder, not elsewhere classified; Translations: [Otherspecific joint derangements of right shoulder, not elsewhere classified]Onset: 78-45-8104IaaczksIuchm non-traumatic joint disorders (3 sources)Pain in right knee; Translations: [Pain in joint, lower leg]Onset: 106534-58-8904LsudprpeGjpmt non-traumatic joint disorders (1 source)Pain in right hip; Translations: [PAIN IN RIGHT HIP]Onset: 06-26-2022 EpisodicOther non-traumatic joint disorders (4 sources)Pain in left knee; Translations: [Pain in joint, lower leg]11-19-2023 EpisodicOther non-traumatic joint disorders (10 sources)Pain in right shoulder; Translations: [Pain in joint, shoulder region]28-74-1641SmepuovhUhjhs nutritional; endocrine; and metabolic disorders (1 source)Morbid (severe) obesity due to excess calories; Translations: [MORBID (SEVERE) OBESITY DUE TO EXCESS CALORIES]Onset: 25-86-5659JgunuekYkqnt nutritional; endocrine; and metabolic disorders (20 sources)Obesity; Translations: [Obesity]Onset: 942184-15-4935Tuhpbqn Other nutritional; endocrine; and metabolic disorders (20 sources)Body mass index 40+ - severely obese; Translations: [Body mass index (BMI) 50.0-59.9, adult]Onset: 483761-45-8599LvboyjcCjhfs nutritional; endocrine; and metabolic disorders (6 sources)Body mass index (BMI) 45.0-49.9, adult; Translations: [BMI 45.0-49.9, adult Z68.42]Onset: 11-21-2020 Resolved: 43-63-3250HyudaikFraxy nutritional; endocrine; and metabolic disorders (2 sources)Body mass index (BMI) 40.0-44.9, adult; Translations: [BMI 40.0-44.9, adult]ChronicOther nutritional; endocrine; and metabolic disorders (2 sources)Obesity caused by energy imbalance; Translations: [Morbid (severe) obesity due to excess calories]48-32-2518DwtdkdtHtqkc nutritional; endocrine; and metabolic disorders (2 sources)Morbid obesity; Translations: [Morbid (severe) obesity due to excess calories]18-20-0624YxgjndxYrlqa skin disorders (2 sources)Eruption; Translations: [Rash and other nonspecific skin eruption] 00-86-8974RunnymnfEfqvz skin disorders (2 sources)Acquired keratoderma; 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]49-06-8001CwtweoncIdrdk upper respiratory infections (5 sources)Acute pansinusitis; Translations: [Acute pansinusitis, unspecified] 83-74-3043QsmocownYaptmippwf and visceral atherosclerosis (7 sources)Peripheral vascular disease; Translations: [Peripheral vascular disease, unspecified]Onset: 500407-16-4629NrbdkmrVhofirud codes; unclassified (20 sources)Sleep apnea; Translations: [Sleep apnea, unspecified]Onset: 602466-68-0965RfcaypzNzhlqokm codes; unclassified (1 source)Asymptomatic menopausal stateEpisodicResidual codes; unclassified (8 sources)History of arthroscopic procedure on shoulder; Translations: [Other specified postprocedural states]64-01-2775OlnfrahyMkrdrsxk codes; unclassified (7 sources)Edema; Translations: [Edema, unspecified]Onset: EpisodicScreening or history of mental health and substance abuse (5 sources)Personal history of nicotine dependence; Translations: [Encounter for screening for depression]Onset: 65-83-8621XsnsdqypDyvgsqbnmfv; intervertebral disc disorders; other back problems (20 sources)Spondylosis without myelopathy or radiculopathy, lumbar region; Translations: [Postlaminectomy syndrome, not elsewhere classified]Onset: 63-46-2945HzyfwmpMsqhefklg-related disorders (2 sources)Opioid dependence; Translations: [Opioid dependence, uncomplicated] 73-81-0939AyzlotxBrfwtnbeavnj (12 sources)Body mass index (BMI) 50-59.9 , adult; Translations: [BODY MASS INDEX (BMI) 50-59.9 , ADULT]Onset: 09-08-2016 Resolved: 61-52-4307BdiggfbQhgditxrzags (1 source)USP (current) use of oral hypoglycemic drugs; Translations: [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]Onset: 09-08-2016 Unclassified (2 sources)Unknown / UNK(Unknown)Onset: 36-77-1876Yliognasukjh (1 source)Other specified depressive episodes; Translations: [OTHER SPECIFIED DEPRESSIVE EPISODES]Onset: 15-63-1073Rzxyaaliawyf (4 sources)LOW BACK PAIN, UNSPECIFIED; Translations: [LOW BACK PAIN, UNSPECIFIED]Onset: 36-91-0086Yunvbmohykdn (1 source)New PatientOnset: 96-94-6908Mbkwupnkvzml (2 sources)Biceps tendinitis, -81-4846 Past or Other Problems Problem ClassificationProblemDateDocumented DateEpisodic/ChronicComplications of surgical procedures or medical care (1 source)Infection following a procedure, initial encounter; Translations: [INFECTION FOLLOWING A PROCEDURE,INITIAL ENCOUNTER]Onset: 53-73-2185Qfdaljwm Deficiency and other anemia (7 sources)Anemia; Translations: [Anemia, unspecified]Onset: 11-17-2024 Resolved: 105038-35-1252TcvodebxKimt disorders (16 sources)Mood disordersOnset: Other aftercare (20 sources)Long-term current use of insulin; Translations: [USP (current) use of insulin]Onset: 096390-43-7972EfkpvxcuPwtzz connective tissue disease (1 source)Other specified soft tissue disorders; Translations: [OTHER SPECIFIED SOFT TISSUE DISORDERS]Onset: 99-04-0212MlkmonitYhuvp connective tissue disease (20 sources)Muscle pain; Translations: [Myalgia, unspecified site]Onset: 690248-77-5831GlhdljugWidkl connective tissue disease (1 source)Disorder of rotator cuff; Translations: [Unspecified disorder of synovium and tendon, unspecified shoulder]Onset: 870194-62-7043Lkaweqmn Other connective tissue disease (20 sources)Bicipital tendinitis, right shoulder; Translations: [Bicipital tenosynovitis]Onset: 636556-93-2854ChdfyluuMexsr nervous system disorders (20 sources)Paresthesia of hand ; Translations: [Paresthesia of skin]Onset: 495997-86-5865PlnrpfalUhudg non-traumatic joint disorders (20 sources)Hip pain; Translations: [Pain in unspecified hip]Onset: 01-08-2016 38-75-3700RvaqcxcoReptq non-traumatic joint disorders (20 sources)Shoulder joint pain; Translations: [Pain in unspecified shoulder] Onset: 820840-60-1973RfvwgqbwVqjki non-traumatic joint disorders (20 sources)Disorder of shoulder; Translations: [Other specified joint disorders, right shoulder]Onset: 354276-33-9494TcbnssisOvxbp screening for suspected conditions (not mental disorders or infectious disease) (4 sources)Cardiovascular stress test abnormal; Translations: [Abnormal result of other cardiovascular function study]Onset: 605881-72-1406Tjbimits Residual codes; unclassified (1 source)Disorientation, unspecified; Translations: [Disorientation, unspecified]Onset: 73-47-7604LhqtvmogMvoljhyu codes; unclassified (1 source)Other specified postprocedural states; Translations: [Other specified postprocedural states]Onset: 19-96-9764OfapqhfiWrnk and subcutaneous tissue infections (20 sources)Local infection of the skin and subcutaneous tissue, unspecified; Translations: [Cellulitis of right lower limb]Onset: EpisodicSpondylosis; intervertebral disc disorders; other back problems (20 sources)Muscle spasm of back; Translations: [Radiculopathy, lumbar region] Onset: 48-88-6841LehtqkinFbnmiqhaqtxp (1 source)LOW BACK PAIN, UNSPECIFIED; Translations: [LOW BACK PAIN, UNSPECIFIED] Onset: 55-73-5794Ztsydbbckvpq (1 source)Low back pain, unspecified M54.50 Results Test NameValueInterpretationReference RangeFacilityUS SOFT TISSUE PALPABLE MASS on 13-53-5976YF SOFT TISSUE PALPABLE MASSUS SOFT TISSUE PALPABLE MASS History: Palpable mass of the left leg. Technique: Sonography of the area of concern was performed. Comparison: None Result: Limited ultrasound performed at the area of concern labeled left thigh palpable mass. There is no focal mass or lesion at this site. Areas of subcutaneous edema. IMPRESSION: Impression: No focal mass or lesion at the area of concern sonographically. Subcutaneous edema. ELECTRONICALLY SIGNED BY: An Strauss AvailableXR FEMUR 2+ VW LEFTon 18-63-8500AF FEMUR 2+ VW LEFTLeft femur. HISTORY: Chronic pain. No known injury. FINDINGS: Bipolar noncemented left knee replacement. No abnormal lucency bone prosthetic interface. Femoral and tibial components within anatomic alignment. Moderate narrowing left hip joint. No fracture, dislocations, or bone lesions identified. IMPRESSION: Moderate degenerative change left hip. Left knee arthroplasty. ELECTRONICALLY SIGNED BY: An Deleon AvailableXR Femur - left 2 Viewson 68-00-2069Txxrgnol degenerative change left hip. Left knee arthroplasty. ELECTRONICALLY SIGNED BY: Pj Dang MDIMAHCA FLORIDA BRANDON HOSPITALDustyft femur. HISTORY: Chronic pain. No known injury. FINDINGS: Bipolar noncemented left knee replacement. No abnormal lucency bone prosthetic interface. Femoral and tibial components within anatomic alignment. Moderate narrowing left hip joint. No fracture, dislocations, or bone lesions identified. IMAGINGSignPj avina MD - 11/21/2024 Left femur. HISTORY: Chronic pain. No known injury. FINDINGS: Bipolar noncemented left knee replacement. No abnormal lucency bone prosthetic interface. Femoral and tibial components within anatomic alignment. Moderate narrowing left hip joint. No fracture, dislocations, or bone lesions identified. IMPRESSION: Moderate degenerative change left hip. Left knee arthroplasty. ELECTRONICALLY SIGNED BY: Pj Dang MD [facility] HealthcareRadiology Study observation (narrative)NOM[facility] HealthcareXR Femur - left 2 ViewsOrdered By: Pj Dang on 09-34-1876[facility] Work Phone: laboratory - Microbiology and Antimicrobial susceptibilityon 11-17-2024S. pyogenes Ag Ql (Throat)NegativeNegative, None DetectedNOSC SyxinbsyyuBMYL-KwK-7 (COVID-19) RNA GEOFFREY+probe Ql (Unsp spec) NegativeNOSC HealthcareNo Panel Informationon 96-66-3988JILB HealthcareFLU A NegativeNOSC HealthcareFLU BNegativeNOGolden Valley Memorial HospitalNOSC HealthcareMagnetic resonance imaging reportOrdered By: Chalino Peacock on 02-48-6888Auuxu report [facility] [address] [place] [address] [place] [address] MRI Report Signed Patient: Lesli Clay Omayra#: [id number] : 1960 Acct:[id number] Age/Sex: 64 / F ADM Date: 5 Loc: Room: Type: [facility] Attending Dr: Shama SANZ Copies to: [facility]~ Ordering Provider: [facility] Date of Service: 10/31/24 MR/MR lumbar spine wo con: LUMBAR STENOSIS W/NEURO CLAUDICATION ([id number]) XR/XR pre/post mri xray: LUMBAR STENOSIS W/NEURO CLAUDICATION MR lumbar spine wo con, XR pre/post mri xray 10/31/2024 8:56 AM SIGNS AND SYMPTOMS: LUMBAR STENOSIS W/NEURO CLAUDICATION ^POST XRAY COMPARISON: MRI 09/19/2022, myelogram 10/30/2022 FINDINGS: 2 views lumbar spine Multilevel postsurgical changes L1-S1 posterior fusion. L5-S1 discectomy with spacer device. Likelyinterbody ankylosis of the level. Moderate foraminal encroachment L4-S1 and lateral views. Vascularcalculations. MRI lumbar spine performed without contrast Redemonstration [...] artifact partially obscured evaluation. Redemonstration of acircumferential discbulge with facet hypertrophy. There is moderate severe [...] Peacock M.D. 10/31/2024 4:31 PM Dictation Location: [place] [address] Transcribed By: [facility] 10/31/24 1631 Dictated By: Chalino Peacock MD 10/31/24 161 Signed By: 10/31/241630 [facility] Work Phone: XR pre/post mri xrayon 97-10-6716PX pre/post mri xray [facility] [address] [place] [address] [place] [address] MRI Report Signed Patient: Lesli Clay MR#: [id number] : 1960 Acct:[id number] Age/Sex: 64 / F ADM Date: 10/31/24 Loc: MR Room: Type: [facility] Attending Dr: Shama SANZ Copies to: [facility] Ordering Provider: [facility] Date of Service: 10/31/24 MR/MR lumbar spine wo con: LUMBAR STENOSIS W/NEURO CLAUDICATION ([id number]) XR/XR pre/post mri xray: LUMBAR STENOSIS W/NEURO [...] Peacock M.D. 10/31/2024 4:31 PM Dictation Location: [place] [address] Transcribed By: [facility] 10/31/24 1631 Dictated By: Chalino Peacock MD 10/31/24 1615 Signed By: 10/31/24 1631[facility] Physician [facility] HospitalXR LUMBAR SPINE 4+ VIEWS WITH FLEXION EXTENSIONon 53-00-2930FV LUMBAR SPINE 4+ VIEWS WITH FLEXION EXTENSION [...] Grade 1 L5 spondylolisthesis. ELECTRONICALLY SIGNED BY: Liz DeleonNot [place] [facility] WITH AUTO DIFFERENTIALon 22-58-8841IWCQBIJHW ABSOLUTE COUNT (10*3/UL) BY AUTOMATED COUNT 0.0 10*3/uLNormal0.0-0.2ProMedica Anderson SanatoriumComment on above:Performed By: #### CBCA #### [address] [address] VIRBASOPHILS RELATIVE PERCENT BY AUTOMATED COUNT0.5 %Normal [facility] CenterComment on above:Performed By: #### CBCA #### [address] [address] VIRCELLAVISION DIFFERENTIAL TYPEAUTOMATED DIFFERENTIALNormal [facility] CenterComment on above:Performed By: #### CBCA #### [address] [address] VIREosinophils (Bld) [#/Vol]0.2 10*3/uLNormal0.0-0.4[facility] Medical CenterComment on above:Performed By: #### CBCA #### [address] [address] VIREOSINOPHILS RELATIVE PERCENT BY AUTOMATED COUNT2.2 %Normal [facility] CenterComment on above:Performed By: #### CBCA #### [address] [address] VIRErythrocyte distribution width (RBC) [Ratio]17.0 %High 11.5-15ProHca Houston Healthcare NorthwestComment on above:Performed By: #### CBCA #### [facility] ([address] [address] VIRHematocrit (Bld) [Volume fraction]34.2 %Cml75-13HjzSdmxvdHca Houston Healthcare NorthwestComment on above:Performed By: #### CBCA #### [facility] ([address] [address] VIRHemoglobin (Bld) [Mass/Vol]11.3 g/dLLow11.7-15.5PProMedica Defiance Regional HospitalComment on above:Performed By: #### CBCA #### [facility] ([address] [address] VIRLYMPHOCYTES ABSOLUTE COUNT (10*3/UL) BY AUTOMATED COUNT1.9 10*3/uLNormal1.0-3.5PProMedica Defiance Regional HospitalComment on above:Performed By: #### CBCA #### [facility] ([address] [address] VIRLYMPHOCYTES RELATIVE PERCENT BY AUTOMATED COUNT19.6 %Normal [facility] CenterComment on above:Performed By: #### CBCA #### [facility] ([address] [address] VIRMCH (RBC) [Entitic mass]27.2 pjVqhlhe34-05QmxXfrdniOhioHealth Grant Medical CenterComment on above:Performed By: #### CBCA #### [facility] ([address] [address] VIRMCHC (RBC) [Mass/Vol]33.0 g/dLWatjme41-51MhfUwldtaHca Houston Healthcare NorthwestComment on above:Performed By: #### CBCA #### [facility] ([address] [address] VIRMCV (RBC) [Entitic vol]83 pHFpwirl47-672HwgXlfdbp [facility]ont HospitalComment on above:Performed By: #### CBCA #### [facility] ([address] [place] [address] VIRMONOCYTES ABSOLUTE COUNT (10*3/UL) BY AUTOMATED COUNT0.6 10*3/uLNormal0.0-0.9[facility] Medical CenterComment on above:Performed By: #### CBCA #### [facility] ([address] [place] [address] VIRMONOCYTES RELATIVE PERCENT BY AUTOMATED COUNT6.7 %Normal [facility] CenterComment on above:Performed By: #### CBCA #### [facility] ([address] [place] [address] VIRNEUTROPHILS ABSOLUTE COUNT BY AUTOMATED COUNT6.8 10*3/uL High1.5-6.6Ohio[facility] Grant Medical CenterComment on above:Performed By: #### CBCA #### [facility] ([address] [place] [address] VIRNEUTROPHILS RELATIVE PERCENT BY AUTOMATED COUNT71.0 %Normal [facility] CenterComment on above:Performed By: #### CBCA #### [facility] ([address] [place] [address] VIRPlatelet mean volume (Bld) [Entitic vol]7.4 fLNormal7-12 [facility] CenterComment on above:Performed By: #### CBCA #### [facility] ([address] [place] [address] VIRPlatelets (Bld) [#/Vol]294 10*3/wXNfkctp841-674EthZmxavy [facility] HospitalComment on above:Performed By: #### CBCA #### [facility] ([address] [place] [address] VIRRBC COUNT4.14 X10E12/LNormal3.8-5.2PUCHealth [facility] HospitalComment on above:Performed By: #### CBCA #### [facility] ([facility]) [address] [place] [address] VIRWBC (Bld) [#/Vol]9.6 10*3/uLNormal4-11ProHca Houston Healthcare NorthwestComment on above:Performed By: #### CBCA #### [facility] ([place] [address] [place] [address] VIRCOMPREHENSIVE METABOLIC PANELon 49-80-4641Nejguzg [Mass/Vol]3.6 g/dLNormal3.2-5.3PProMedica Defiance Regional HospitalComment on above: Performed By: #### CMP #### [facility] ([place] [address] [place] [address] VIRALP [Catalytic activity/Vol]104 U/NMmlkug77-394KqcMxngtdHca Houston Healthcare NorthwestComment on above:Performed By: #### CMP #### [facility] ([place] [address] [place] [address] VIRALT [Catalytic activity/Vol]33 U/LHigh<=31PProMedica Defiance Regional HospitalComment on above:Performed By: #### CMP #### [facility] ([place] [address] [place] [address] VIRAnion gap [Moles/Vol]9 mmol/LNormal5-15ProHca [facility] Healthcare NorthwestComment on above:Performed By: #### CMP #### [facility] ([place] [address] [place] [address] VIRAST [Catalytic activity/Vol]24 U/LNormal<=41ProHca Houston Healthcare NorthwestComment on above:Performed By: #### CMP #### [facility] ([facility]) [facility] [address] [place] [place] [address] VIRBilirubin [Mass/Vol]0.5 mg/dLNormal0.3-1.2PProMedica Defiance Regional HospitalComment on above:Performed By: #### CMP #### [facility] ([address] [place] [address] VIRCalcium [Mass/Vol]9.3 mg/dLNormal8.5-10.5PProMedica Defiance Regional HospitalComment on above:Performed By: #### CMP #### [facility] ([address] [place] [address] VIRChloride [Moles/Vol]99 mmol/EOwsgei83-002UcjXuwyjoHca Houston Healthcare NorthwestComment on above:Performed By: #### CMP #### [facility] ([address] [place] [address] VIRCO2 [Moles/Vol]29 mmol/VUlkavg00-93KhxCbvkxiProMedica Defiance Regional HospitalComment on above:Performed By: #### CMP #### [facility] ([address] [place] [address] VIRCreatinine [Mass/Vol]0.74 mg/dLNormal0.40-1.00ProHca Houston Healthcare NorthwestComment on above:Result Comment: METHOD TRACEABLE TO IDMS STANDARDPerformed By: #### CMP #### [facility] ([address] [place] [address] VIRGFR/1.73 sq M.predicted among non-blacks MDRD (S/P/Bld) [Vol rate/Area]90 mL/min/{1.73_m2}Normal>=60ProHca Houston Healthcare NorthwestComment on above:Result Comment: eGFR not reported due to non-numeric value for Creatinine. Reported eGFR is based on the CKD-EPI 2021 equation that does not use a race coefficient.Performed By: #### CMP #### [facility] ([address] [place] [address] VIRGlucose [Mass/Vol]145 mg/nPKmeb75-66RupKmppyuHca Houston Healthcare NorthwestComment on above:Performed By: #### CMP #### [facility]) [address] [place] [address] [place] [address] VIRPotassium [Moles/Vol]4.7 mmol/LNormal3.5-5.0ProHca [facility] Healthcare NorthwestComment on above:Performed By: #### CMP #### [facility] ([address] [place] [address] VIRProtein [Mass/Vol]7.6 g/dLNormal6.0-8.0ProHca Houston Healthcare NorthwestComment on above:Performed By: #### CMP #### [facility] ([address] [place] [address] VIRSodium [Moles/Vol]137 mmol/LWkeoqu492-612MfxFqnjja [facility] HospitalComment on above:Performed By: #### CMP #### [facility] ([address] [place] [address] VIRUrea nitrogen [Mass/Vol]20 mg/dLNormal5-27ProHca [facility] Healthcare NorthwestComment on above:Performed By: #### CMP #### [facility] ([address] [place] [address] VIRLACTATE W/ REFLEXon 11-01-6361DQPZJEA W/REFLEX1.3 mmol/L Normal0.4-2.0ProHca Houston Healthcare NorthwestComment on above:Order Comment: Result did not trigger repeat Lactate, re-order if needed.Performed By: #### LACTS #### [facility] ([address] [place] [address] VIRLaboratory - Hematology and Cell countsOrdered By: Allison Teixeira on 20-92-1238PjC3a (Bld) [Mass fraction]8.4 %[facility] Hospital [facility]imaXR KNEE 4+ VIEWS RIGHTon 39-33-6008QJ KNEE 4+ VIEWS RIGHTXR KNEE 4+ VIEWS RIGHT Reason for exam: Right knee pain, post fall Views: 4 Findings: A total knee arthroplasty shows normal alignment. There is no evidence of fracture and noabnormal lucency around the hardware. No bone lesions are identified. IMPRESSION: Unremarkable postop appearance. Dictated on: 08/02/2024 5:08 PM This report has been electronically signed and approved by the interpreting Radiologist.NormalNot AvailableXR SHOULDER 2+ VIEWS RIGHTon 55-73-4517UZ SHOULDER 2+ VIEWS RIGHTXR SHOULDER 2+ VIEWS RIGHT Reason for exam: [...] electronically signed and approved by the interpreting Radiologist.NormalNot AvailableCoding Summaryon 14-06-0000Vtnfpn SummaryMLBase 64 IyvllakdAXw1qZo+PGhlYWQ+BV4JFFNaI66hbBBrxB7fR3SCAUjMAtptYKONHRvMAwYdpfHlZM3vpEJz ZXJu [file] b3J (more content not included)...[facility] HospitalCoding SummaryHTMLBase 64 VugqgjtaWHq3sQc+PGhlYWQ+DA4WASDgW16taPQenU3fG2HGCRoEXaqcNYDZNXdKGmTbafGwYE6bxXOx ZXJu [file] b3J (more content not included)...[facility] HospitalConsent Formson 21-99-0771Liszofd [id number]#1.00OTGTIFFSelect Specialty Hospital HospitalConsultation/Specialist Noteon 06-20-2024 Consultation/Specialist [id number]#1.00OTGTIFF [facility] CenterOutside Recordson 89-29-5599Ypdqkas Records [id number]#1.00[facility] Telemetry Stripson 99-74-6122Vvrldaquq Strips [id number]#1.00[facility] Anesthesia Noteon 80-00-7575Wycauhnnol NotePatient: LESLI CLAY Age: 64 years Sex: FEMALE : 1960 Associated Diagnoses: None Author: Farooq Boggs MD Postoperative Information Post Operative Note: Operative Day. Anesthetic utilized: General. Health Status Allergies: Allergic Reactions (All) No known allergies Problem list: All Problems Hypertension / SNOMED CT 9946850124 / Confirmed Occasional tremors / SNOMED CT 04735044 / Confirmed Type 2 diabetes mellitus / SNOMED CT 606406159 / Confirmed Physical Examination Vital Signs (last [...] [Verified on: 06/17/2024 14:58 EDT] Farooq Boggs MDCoshocton Regional Medical CenterAnesthesia NotePatient: LESLI CLAY Age: 64 years Sex: FEMALE : 1960 Associated Diagnoses: None Author: Farooq Boggs MD Preoperative Information Anesthesia history: Patient history: pt had breathing issues post op after back surgery in [place]. Family was unaware for several hours, but [...] 300 mg = 1 tab(s), Oral, Daily hydrochlorothiazide-losartan 12.5 mg-50 mg oral tablet 1 tab(s), [...] list: All Problems Hypertension / SNOMED CT 5707218206 / Confirmed Occasional tremors / SNOMED CT 50091765 / Confirmed Type 2 diabetes mellitus / SNOMED CT 971394451 / Confirmed Histories Family History: No family history items have been selected or recorded. Procedure history: Arthroscopy of shoulder ([id number]) on 06/17/2024 at 64 Years. Comments: 06/17/2024 13:21 Marylin Seymour RN Right Neck ([id number]). Comments: 06/01/2024 12:04 Diane Mcgowan RN neck surgery Complete repair of rotator cuff ([id number]). Comments: 06/01/2024 12:04 Diane Mcgowan RN bilateral shoulders Triggering of finger ([id number]). Comments: 06/01/2024 12:05 Diane Mcgowan RN bilateral hands Back ([id number]). Comments: 06/01/2024 12:03 Diane Mcgowan RN back surgery Arthroplasty of knee ([id number]). Comments: 06/01/2024 12:05 Diane Mcgowan RN bilateral knees section ([id number]). Cardiac catheterization (64005115). H/O: hysterectomy ([id number]). Social History Electronic Cigarette/Vaping Assessment Electronic Cigarette [...] Oriented. Review / Management Laboratory Results Plan [place] [employer] (ASA) physical status classification: [...] [Verified on: 06/17/2024 13:40 EDT] Farooq Boggs MDNoVan Wert County HospitalInpatient Patient Summaryon 06-17-2024 [place] [address] Patient Discharge Instructions Name: JAREKANGELITA LESLI Durbin : 1960 Patient Address: [address] [place] [address] Primary Care Provider: Name: JENNIFER CABRERA After you are discharged if you find you have any questions, please, call [phone] ext [phone] to speak to a nurse. Discharge Diagnosis: Complete rotator cuff tear or rupture of right shoulder, not specified as traumatic Prescription Information: If you have been given a prescription for narcotics, seek immediate medical attention if you have any difficulty breathing or any sudden status changes such as confusion andsleepiness. If you or anyone you know is experiencing suicidal thoughts, mental health, alcohol and/or drug addiction problems; contact the [facility] 08/09 Crisis Hotline -Text 4HMKT to 513775. If you received any narcotics, sedation, or [...] business decisions or sign any legal documents [facility] would like to thank you for allowing us to assist you with your healthcare needs.The following includes patient education materials and information regarding your injury/illness. LESLI CLAY has been given the following list of follow-up instructions, prescriptions,and patient education materials: Follow-up Instructions With: Address: When: Lauren Torres [address] [place] [address] Business (1) 07/01/2024 10:00 AM Medications During the course of your visit, your medication list was updated with the most current information. The details of those changes are reflected below: Medications to Continue That Have Not Changed Other Medications acetaminophen-oxycodone (acetaminophen-oxycodone 325 mg-7.5 mg oral tablet) 1 tab(s) Oral (given bymouth) 3 times per day as needed as [...] 12.5 mg-50 mg oral tablet) 1 tab(s) Oral(given by mouth) every day. hydrOXYzine (hydrOXYzine hydrochloride [...] mg oral tablet) 1 tab(s) Oral (given bymouth) 3 times per day as needed as [...] 12.5 mg-50 mg oral tablet) 1 tab(s) Oral(given by mouth) every day. hydrOXYzine (hydrOXYzine hydrochloride [...] capsule) 1 c (more content not included)... [facility] Intraoperative Recordon [id number] Intraoperative RecordMAGR Intra-Op Record Summary Primary Physician: AKASH RODRIGUEZ DO Finalized Date/Time: 06/17/24 14:39:23 Pt. Name: PHILLY LESLI Huffman/Sex: 1960 FEMALE Med Rec #: [id number] Physician: AKASH RODRIGUEZ DO Financial #: [id number] Pt. Type: D Room/Bed: / Admit/Disch: 06/17/24 [...] 1 Entry 2 Entry 3 Case Attendee AKASH RODRIGUEZ Robert M MD Kokinda, Diane RN Role Performed Surgeon - Primary Anesthesiologist of Fabrication Technician Record Time In 06/17/24 13:02:00 06/17/24 13:02:00 [...] CSFA CST CST Role Performed Scrub Personnel Database Programmer Scrub Personnel Time In 06/17/24 13:02:00 06/17/24 [...] Arthroscopy Shoulder Primary Procedure Yes Primary Surgeon AKASH RODRIGUEZ DO Modifiers Right Surgeon Comment RIGHT [...] Concerns n/a Addressed Time Out Yamilet Rodriguez DESK TOP PUBLISHER, Time Out Time 06/17/24 13:37:00 Participants Mary Alice Botello RN, Farooq Boggs MD, Kaya Ty DESK TOP PUBLISHER, AKASH RODRIGUEZ DO, Tuyte Carrasquillo CSFDes DESK TOP PUBLISHER Last Modified By: Mary Alice Botello RN [...] Checked Yes Positioning De (more content not included)...[facility] Intraoperative RecordMAGR Intra-Op Record Summary Primary Physician: Finalized Date/Time: 06/17/24 13:02:44 Pt. Name: CHRIS CLAYJAQUI Durbin D.O.B./Sex: 1960 FEMALE Med Rec #: [id number] Physician: AKASH RODRIGUEZ DO Financial #: [id number] Pt. Type: D Room/Bed: / Admit/Disch: 06/17/24 [...] Draper, Lora RN Role Performed Anesthesiologist of Fabrication Technician Fabrication Technician Record Time In 06/17/24 12:35:00 06/17/24 12:34:00 [...] Performs skin preparation Im.270.1 Implements protective measures toprevent skin and tissue injury due to chemical sources Entry 1 Skin Prep Syntegrity Prep Agents (Im.270) Chlorhexidine Gluconate Prep By Farooq Boggs MD and Alcohol Prep Area (Im.270) Shoulder, Neck Prep Area Details Right Skin Prep Agent Dry Yes Without Pooling Hair Removal Syntegrity Hair Removal Methods No hair removal performed (more content not included)...[facility] PACU Record on [id number] PACU RecordMA PACU Record Summary Primary Physician: AKASH RODRIGUEZ DO Finalized Date/Time: 06/17/24 15:24:17 Pt. Name: LESLI CLAY D.O.B./Sex: 1960 FEMALE Med Rec #: [id number] Physician: AKASH RODRIGUEZ DO Financial #: [id number] Pt. Type: D Room/Bed: / Admit/Disch: 06/17/24 10:32:36 - Institution: PACU Case Times MAGR Entry 1 In PACU I 06/17/24 14:35:00 Discharge from PACU 06/17/24 15:24:00 I Last Modified By: Marylin Heredia RN 06/17/24 15:24:03 Finalized By: Marylin Heredia RN Document Signatures Signed By: Marylin Heredia RN 06/17/24 15:24[facility] Postoperative Recordon [id number] Postoperative RecordMAGR Phase II Record Summary Primary Physician: AKASH RODRIGUEZ DO Finalized Date/Time: 06/17/24 16:57:02 Pt. Name: LESLI CLAY/Sex: 1960 FEMALE Med Rec #: [id number] Physician: AKASH RODRIGUEZ DO Financial #: [id number] Pt. Type: D Room/Bed: / Admit/Disch: 06/17/24 10:32:36 - Institution: Phase II Case Times MAGR Pre-Care Text: Patient is free from s/s of injury. Patient remains free from compromised physical state related tosurgery or anesthesia. Patient comfort maintained. Patient/family verbalize [...] Signatures Signed By: Marylin Heredia RN 06/17/24 16:57[facility] Preoperative Recordon [id number] Preoperative RecordMAGR Pre-Op Record Summary Primary Physician: AKASH RODRIGUEZ DO Finalized Date/Time: 06/17/24 13:03:22 Pt. Name: LESLI CLAY /Sex: 1960 FEMALE Med Rec #: [id number] Physician: AKASH RODRIGUEZ DO Financial #: [id number] Pt. Type: D Room/Bed: / Admit/Disch: 06/17/24 [...] ready for surgery. The patient remains free froms/s of injury. Patient/family express understanding of plan of care and participate in decisions affectinghis or her perioperrative plan of care. Allergies documented appropriately. Patient identifiers and consent correct. General Comments: Patient to PSW ambulatory. Patient denies chest pain, cold, flu like symptoms. Patient denies pacer/defib and sleep apnea. Patient is diabetic. Patient verbalizes understanding of post op orders and instructions. Finalized By: Marylin Heredia RN Document Signatures Signed By: Marylin Heredia RN 06/17/24 13:03[facility] Glucose Levelon 69-49-8776Mxlaqxb [Mass/Vol]156 mg/cJXlpq70-718Scnssbwl85 Frank StreetComment on above:Result Comment: OPR_ID=IN_LIST,TGC FLAG = False,Meter:[id number] Women Nurse:Bailey HouserPerformed By: #### [id number] ####[facility] (DEFAULT)[address] [place] [address] 22073Brmaprv [Mass/Vol]170 mg/dL60 Griffin StreetComment on above:Result Comment: OPR_ID=IN_LIST,TGC FLAG = False,Meter:[id number] Women Nurse:2004 Dianne HouserPerformed By: #### [id number] ####[facility] (DEFAULT)[address] [place], [place] [address]Lvpnvgw Handouton 06-17-2024 Patient HandoutOutpatient Shoulder Discharge Instructions 1.) For the next [...] to start with liquids and gradually work upto solid foods. 5.) If you experience persistent nausea or vomiting, pain not controlled with your pain medicine and ice, bleeding that you feel is excessive, swelling or fever, please call Dr. Rodriguez at [phone]. 6.) Keep dressings in place, clean and [...] or concerns, please call the office at [phone] or [phone] HospitalProgress Note - Nurseon 91-90-7500Xgtpstek Note - Nursepre-op call made to pt. pt states understanding of arrival time of 1030 on 06/17/24 and NPO after MN. [Electronically Signed on: 06/16/2024 09:12 EDT] Miley Uribe RNli L [Verified on: 06/16/2024 09:12 EDT] Uribe WENDYRowena [facility], IncProgress Note - Nurseon 06-15-2024 Progress Note - David Wren reviews pt chart and clearance from PCP. Dr Wren states that pt will have to have acceptable BP DOS to proceed with surgery. [Electronically Signed on: 06/15/2024 12:46 EDT] Diane Smith RN [Verified on: 06/15/2024 12:46 EDT] Diane Smith RNCoshocton Regional Medical CenterCoding Summaryon 75-00-4736Qiowok SummaryHTMLBase 64 MttnlpxwLYl8mTn+PGhlYWQ+NN5RDVBlY76hmKBvtZ0fL9JZABfJYxycAVXPPXaRSfXmhjSdPJ4vyPOm ZXJu [file] bGF (more content not included)...[facility] Medical CenterProgress Note - Nurseon 63-16-2642Wuunfvzm Note - NurseDr Clover reviews pt chart and wants medical clearamce d/t elevated BP on PAT visit. [Electronically Signed on: 06/02/2024 13:58 EDT] Diane Smith RN [Verified on: 06/02/2024 13:58 EDT] Diane Smith RN Spoke with Nicole at Dr Contreras office and informed her of the need for medical clearance. [Electronically Signed on: 06/02/2024 13:59 EDT] Diane Smith RNNormalCrystal Clinic Orthopedic Center.Auto Diff 1on 08-89-1901Yprw Kleberg %8 %Normal1-12[facility] HospitalComment on above:Performed By: #### [id number], [id number], [id number] ####[facility] (DEFAULT)[address] [place] [address] 75329Htow Abs#0.1 x60Jqwclv9.0-0.2[facility]uder HospitalComment on above: Performed By: #### [id number], [id number], [id number] ####[facility] (DEFAULT)[address] [place] [address] 15453Ueokwtqkx/100 WBC (Bld)0.9 % Normal0.2-2.0[facility] HospitalComment on above:Performed By: #### [id number], [id number], [id number] ####[facility] (DEFAULT)[address] [place] [address] 30949Yiq Abs#0.2 i00Dxbntl8.0-0.4[facility] HospitalComment on above: Performed By: #### [id number], [id number], [id number] ####[facility] (DEFAULT)[address] [place] [address] 45030Teafnmtbivm/100 WBC (Bld)2.2 % Normal0.9-4.0[facility] HospitalComment on above:Performed By: #### [id number], [id number], [id number] ####[facility] (DEFAULT)[address] [place] [address] 27872Erbbx Abs#1.9 h37Dhlipg0.3-2.9[facility] HospitalComment on above:Performed By: #### [id number], [id number], [id number] ####[facility] (DEFAULT)[address] [place] [address] 88255Bvuyczhqvts/100 WBC (Bld)19 % Wrmbel11-24Vjkqdkun HospitalComment on above:Performed By: #### [id number], [id number], [id number] ####[facility] (DEFAULT)[address] [place] [address] 97175Ywte Abs#0.8 n67Cyflcy2.0-0.8[facility] HospitalComment on above: Performed By: #### 7726070, [id number], [id number] ####[facility] (DEFAULT)[address] [place] [address] 86159Hkss Abs#7.4 c87Fqrflg4.5-9.2 [facility] HospitalComment on above:Performed By: #### 9597315, [id number], [id number] ####[facility] (DEFAULT)[address] [place] [address] 22364Fxygrtqalll/100 WBC (Bld)71 %Wpdgmj05-85Xyzrryne HospitalComment on above: Performed By: #### [id number], [id number], [id number] ####[facility] (DEFAULT)[address] [place] [address] 74070NQZ Standardon 05-70-3792hMGJ Non AA>60Invalid Interpretation [facility] HospitalComment on above:Performed By: #### 8609325, [id number], [id number] ####[facility] (DEFAULT)[address] [place] [address] 06369mVCT AA>60Invalid Interpretation CodeTrumbull Regional Medical Center HospitalComment on above:Performed By: #### [id number], [id number], [id number] ####[facility] (DEFAULT)[address] [place] [address] 88091Amlsacv [Mass/Vol]9.3 mg/dLNormal8.9-10.3[facility] HospitalComment on above:Performed By: #### 7653531, 93880837, [id number] ####[facility] (DEFAULT)[address] [place] [address] 04734Wxinjxvf [Moles/Vol]99 mmol/KMbi062-912Ayjjhjuf HospitalComment on above:Performed By: #### 7927680, 11510125, [id number] ####[facility] (DEFAULT)[address] [place] [address] 39508YM3 [Moles/Vol]28 mmol/HKqewuo52-57Prbwvqbz HospitalComment on above:Performed By: #### 0631006, [id number], [id number] ####[facility] (DEFAULT)[address] [place] [address] 05158Vemoqlqion [Mass/Vol]0.72 mg/dLNormal0.60-1.30 [facility] HospitalComment on above:Performed By: #### [id number], 23637207, [id number] ####[facility] (DEFAULT)[address] [place] [address] 32585Dvilxmr [Mass/Vol]89.0 mg/uLQpuedh45.0-118.0[facility] HospitalComment on above:Performed By: #### 2068918, 83833742, [id number] ####[facility] (DEFAULT)[address] [place] [address] 32597Sywytmbvp [Moles/Vol]4.6 mmol/L Normal3.6-5.1[facility] HospitalComment on above:Performed By: #### 6623302, 18895079, [id number] ####[facility] (DEFAULT)[address] [place] [address] 66481Zyeuof [Moles/Vol]135.0 mmol/CJvd210.0-144.0[facility] Hospital Comment on above:Performed By: #### 8456291, 03711640, [id number] ####[facility] (DEFAULT)[address] [place] [address] 64342Jibl nitrogen [Mass/Vol]17 mg/dLNormal8-26[facility] HospitalComment on above:Performed By: #### 2715760, 43384486, [id number] ####[facility] (DEFAULT)[address] [place] [address] 19515Vfpqg gap [Moles/Vol]12.6 mmol/LNormal5.0-19.0 [facility] HospitalComment on above:Performed By: #### 3526535, 05075041, [id number] ####[facility] (DEFAULT)[address] [place] [address] 77805Gvcdwyhgjc293 mOsm/LInvalid Interpretation CodeTrumbull Regional Medical Center HospitalComment on above:Performed By: #### 0769227, 04893416, [id number] ####[facility] (DEFAULT)[address] [place] [address] 52563Wokp nitrogen/Creatinine [Mass ratio]23.6 mg/mgHigh4.6-16.2[facility] HospitalComment on above:Performed By: #### 0022531, 18550189, [id number] ####[facility] (DEFAULT)[address] [place] [address] 93808CQH w/ Auto Diffon 14-66-9483Segegtsjnss distribution width (RBC) [Ratio]17.2 %High11.5-15.0[facility] HospitalComment on above:Performed By: #### 0014969, 11083535, [id number] ####[facility] (DEFAULT)[address] [place] [address] 10882Whdoqxaibg (Bld) [Volume fraction]36.4 %Rmsgvr52.7-40.4[facility] HospitalComment on above:Performed By: #### 0732209, 55777486, [id number] ####[facility] (DEFAULT)[address] [place] [address] 33501Xmlnmyolav (Bld) [Mass/Vol]11.9 g/uNOlydhs35.3-15.9 [facility] HospitalComment on above:Performed By: #### 2195524, 15131239, [id number] ####[facility] (DEFAULT)[address] [place] [address] 93067Zbw Diff?AutoInvalid Interpretation CodeTrumbull Regional Medical Center HospitalComment on above: Performed By: #### 6984932, 97998284, [id number] ####[facility] (DEFAULT)[address] [place] [address] 25416VSS (RBC) [Entitic mass]28 pg Axhotr03-10Qkbkzjfz HospitalComment on above:Performed By: #### 1205424, 93131266, [id number] ####[facility] (DEFAULT)[address] [place] [address] 02653ZPDD (RBC) [Mass/Vol]33 g/zOSlpsde70-14Efbkayhl HospitalComment on above:Performed By: #### 0452551, 71263959, [id number] ####[facility] (DEFAULT)[address] [place] [address] 82229LTA (RBC) [Entitic vol]84 fL Oknqhq12-180Nldzusiv HospitalComment on above:Performed By: #### 1116009, 53308925, [id number] ####[facility] (DEFAULT)[address] [place] [address] 26001Njmvrgec762 v20Pujpnq287-959Rbujaodp HospitalComment on above: Performed By: #### 0021625, 03240235, [id number] ####[facility] (DEFAULT)[address] [place] [address] 11244Ykwrscby mean volume (Bld) [Entitic vol]7.9 fLNormal6.3-10.2[facility] HospitalComment on above:Performed By: #### 7239631, 39374715, [id number] ####[facility] (DEFAULT)[address] [place] [address] 29052FJP1.31 z21Nlawxi9.70-5.30[facility] HospitalComment on above:Performed By: #### 0734971, 95961730, [id number] ####[facility] (DEFAULT)[address] [place], [place] [address]IBE59.5 h55Sqzgzc3.5-10.5 [facility] Orthopedic CenterComment on above:Result Comment: Slide ReviewedPerformed By: #### 6835388, 81046374, [id number] ####[facility] (DEFAULT)[address] [place], [place] [address]Pzkxqlctjv [Mass/volume] in UrineOrdered By: Lili Burgos on 00-37-3619Fruqaylbzp (U) [Mass/Vol]Creatinine [Mass/volume] in Urine [facility] LimaComment on above:No reference range established MicroAlb Creat Ratio,Uon 11-26-6517Saxfxpk DL <= 20 mg/L (U) [Mass/Vol]10.5 mg/dLHigh0.0-1.8[facility] Physician GroupComment on above:Performed By: #### URMACRERAT #### [facility] [address] [place] [id number] USACreatinine, Urine (Random)102.00 mg/dLNormWellington Regional Medical Center Physician [facility] HospitalComment on above:Result Comment: No reference range established Performed By: #### URMACRERAT #### [facility] [address] [place] [address] USAMicroalbumin/Creatinine Xeszw974.9 mg/gHigh0.0-30.0[facility] Physician [facility] HospitalComment on above:Result Comment: 30-300 mg/g indicates an increased risk for diabetic nephropathy. Greater than 300 mg/g is consistent with clinical nephropathy. (Am. J. Kidney Disease 1995, 25:107) PERFORMED BY: [place] [address] PATHOLOGIST OVERSEAMER CHRISTIANO TORREZ M.D.Performed By: #### URMACRERAT #### [facility] [address] [place], [place] [address] USAMicroalbumin [Mass/volume] in UrineOrdered By: Lili Burgos on 74-92-6016Wfsuivi DL <= 20 mg/L (U) [Mass/Vol]Microalbumin [Mass/volume] in UrineHigh0.0-1.8[facility] LimaUrine microalbumin/creatinine mass ratioOrdered By: Lili Burgos on 05-25-2024 Albumin/Creatinine DL <= 20 mg/L (U) [Mass ratio]Urine microalbumin/creatinine mass ratioHigh0.0-30.0[facility] Hospital LimaComment on above:30-300 mg/g indicates an increased risk for diabetic nephropathy. Greater than 300 mg/g is consistent with clinical nephropathy. (Am. J. Kidney Disease 1994, 25:107)XR CHEST 2 VIEWSon 69-97-6464QP CHEST 2 VIEWSEXAM: XR CHEST 2 VIEWS Clinical History: Cough, shortness of breath Reference Exam: No comparison Findings: Subtle atherosclerosis of the aortic arch. The cardiopericardial silhouette is normal in appearance. The pulmonary vessels are not cephalized.There is no alveolar edema, pneumonia, or pneumothorax. Negative for pleural effusion. The skeletonis remarkable for postprocedural changes in the cervical spine. Thoracic spinal spondylosis and multilevel disc space height loss. Fusion in the upper lumbar region. Impression: Negative for specific acute cardiopulmonic pathology. Dictated on: 04/12/2024 9:40 AM This report has been electronically signed and approved by the interpreting Radiologist.NormalNot AvailableMagnetic resonance imaging reportOrdered By: Carlos Manuel Armando on 92-50-2011Smhvd reportSUMMA HEALTH [facility] Main [place] [address] [place] [address] MRI Report Signed Patient: Lesli Clay Janet Cutler#: [id number] : 1960 Acct:[id number] Age/Sex: 63 / F ADM Date: 5 Loc: MR Room: Type: [facility] Attending Dr: Lauren Torres PA-C Copies to: Lauren Torres PA-C~ Ordering Provider: Lauren Torres PA-C Date of Service: 03/10/24 MR/MR shoulder RT wo con: M24.811 ([id number]) XR/XR pre/post mri xray: M24.811 MRI right [...] surrounds the tendon in the bicipital groove. Mayrepresent tenosynovitis. GLENOHUMERAL LIGAMENTS: The superior glenohumeral ligament [...] Adequate glenohumeral joint. Adequate alignment. No acute bonyfindings. Cervical spine fixation hardware. IMPRESSION: Degenerative change. Impression dictated by: Carlos Manuel Armando M.D.03/10/2024 10:09 AM Dictation Location: [place] [address] Transcribed By: [facility] 03/10/24 1009 Dictated By: Carlos Manuel Armando DO 03/10/24 0959 Signed By: 03/10/24 1009 [facility] LimaXR pre/post mri xrayon 85-48-6284MG pre/post mri xraySUMMA [facility]ALTH [facility] Main [place] [address] [place], [place] [address] MRI Report Signed Patient: Lesli Clay MR#: [id number] : 1960 Acct:[id number] Age/Sex: 63 / F ADM Date: 03/10/24 Loc: Room: Type: [facility] Attending Dr: Lauren Torres PA-C Copies to: Lauren Torres PA-C Ordering Provider: Lauren Torres PA-C Date of Service: 03/10/24 MR/MR shoulder RT wo con: M24.811 ([id number]) XR/XR pre/post mri xray: M24.811 MRI right [...] Manuel Armando M.D.03/10/2024 10:09 AM Dictation Location: RADIO-PC-23 Transcribed By: MICHELINE 03/10/24 1009 Dictated By: Carlos Manuel Armando DO 03/10/24 0959 Signed By: 03/10/24 1009[facility] Physician GroupLaboratory - Chemistry and Chemistry - challengeon 99-77-7286Wgoaquhzpc (U) [Mass/Vol]74 mg/dLScci Hospital LimaNo Panel Informationon 95-82-5353Bmgjx Microalbumin mg/dl 9.3FCincinnati VA Medical CenterUrine Microalbumin/Creatinine Zvhzt956 [facility] Hospital LimaNo Panel Informationon 24-30-9023Optfbky Stqlebn896ImgocifqwScci Hospital LimaNo Panel Informationon 12-29-2023 SERGIO Iglesias 12/29/2023 11:00 AM M Inj/Asp: [...] and draped in the usual sterile fashion. Critical access hospitalXR Shoulder - right 2 Viewson 05-37-9855Oftzmqw Result: AP and Scap Y right shoulder: No acute fracture, no dislocation Moderate AC joint arthrititis, with bone on bone formation and post surgical changes to articular surface Possible calcific tendinitis vs surgical changes Glenohumeral joint preserved with visualized lung manuel clear Impression: No acute bony process right shoulder with ac joint arthritisCritical access hospitalRadiology Study observation (narrative)[facility] - Chemistry and Chemistry - challengeon 69-78-4071Kcafeezgp (Vitamin B12) [Mass/Vol]225 pg/mLScci Hospital LimaAlbumin [Mass/Vol]3.9 g/dLScci Hospital LimaALP [Catalytic activity/Vol]91 U/LFCincinnati VA Medical CenterALT [Catalytic activity/Vol]23 U/[facility] HospitalAST [Catalytic activity/Vol]16 U/[facility] HospitalBilirubin [Mass/Vol]0.3 mg/dLScci Hospital LimaCalcium [Mass/Vol]9.4 mg/dLScci Hospital LimaChloride [Moles/Vol]98 mmol/[facility] HospitalCO2 [Moles/Vol]32 mmol/[facility] HospitalCreatinine [Mass/Vol]0.82 mg/dLScci Hospital LimaGlucose [Mass/Vol]166 mg/dLScci Hospital LimaPotassium [Moles/Vol]5.0 mmol/[facility] HospitalProtein [Mass/Vol]6.9 g/dL [facility] Hospitalodium [Moles/Vol]137 mmol/[facility] HospitalUrea nitrogen [Mass/Vol]17 mg/dLScci Hospital Lima Cholesterol [Mass/Vol]149 mg/dLScci Hospital LimaCholesterol in HDL [Mass/Vol]61 mg/dLScci Hospital LimaCholesterol in LDL [Mass/Vol]69 mg/dLScci Hospital LimaCholesterol.total/Cholesterol in HDL [Mass ratio]2.4 {ratio}[facility] Hospital LimaTriglyceride [Mass/Vol]100 mg/dLScci Hospital LimaLaboratory - Hematology and Cell countson 71-67-3609JhD1k (Bld) [Mass fraction]8.1 %[facility] Hospital LimaNo Panel Informationon 13-76-683233251049-Tmacakz Vitamin D Total28 ng/mLScci Hospital LimaEstimated Average Blrhilr606OkeapayhlScci Hospital LimaEstimated GFR (Non- Xhvurmhh12 mL/minScci Hospital LimaCult,Urineon 95-10-2478Wxkt,UrineSpecimen Description .CLEAN CATCH URINE Special Requests Site: [...] <=4 SUSCEPTIBLE Tobramycin <=1 SUSCEPTIBLE Trimethoprim/Sulfa <=20 SUSCEPTIBLESusceptibleHolzer Medical Center – Jackson Comment on above:Performed By: #### URC ####[address] [place], [place] [id number] Lab Director: Hermilo Thapa [facility] [place] [address] Lab Director: Jonel Calvert MDGlucose,Whole Bloodon 62-40-1127Fcoiljz [Mass/Vol] 316 mg/tPPles79-716YlbkjHolzer Medical Center – JacksonGlucose [Mass/Vol]225 mg/dL Fuwv63-536Fibzu[address] [place], [place] [address]Glucose [Mass/Vol]245 mg/wBDacd80-512 [facility] – JacksonCalcium, Ionicon 06-32-7075Xvtvqfc [Moles/Vol] 1.26 mmol/LNormal1.13-1.33Hol[facility] Center – JacksonComment on above: Performed By: #### NGYN #### [facility] [address] [place], [place] [phone] [place]: Hermilo Thapa MDGlucose (POC)on 81-72-9986Gyayyjt [Mass/Vol]227 mg/cVDyit75-380MgkskHolzer Medical Center – JacksonGlucose,Whole Bloodon 07-28-2023 Glucose [Mass/Vol]247 mg/pEQyhe42-709YhepkHolzer Medical Center – JacksonGlucose [Mass/Vol]252 mg/lKJpms96-053MzczuHolzer Medical Center – JacksonGlucose [Mass/Vol] 280 mg/jJWfpn80-234TkqviHolzer Medical Center – JacksonGlucose [Mass/Vol]214 mg/dL Aqnz11-238MkbuzHolzer Medical Center – JacksonLactic Acidon 53-91-6534Rwomjc Acid,Whole Bl1.5 mmol/LNormal0.7-2.1[facility] Hospital Los AngelesComment on above:Performed By: #### NGYN #### [facility] [address] [place] [address] [place]: Joseph Fletcher-Assistant Center Director Cytologyon 80-04-7426Wwvf No:[id number] NormalHolzer Medical Center – JacksonComment on above:Performed By: #### NGYN #### [facility] [address] [place] [address] [place]: Dominguez Fletcher Description.PELVIC WASHINGSNoWadsworth-Rittman HospitalComment on above:Performed By: #### NGYN #### [facility] [address] [address] [place]: Cortes Fletcher Heart Panelon 64-70-5643Pwsba Test INFORMATION NOT PROVIDEDWilson Street HospitalComment on above: Performed By: #### NGYN #### [facility] [address] [place] [address] [place]: Daryl Fletcher Temp.37.0NoWadsworth-Rittman HospitalComment on above:Performed By: #### NGYN #### [facility] [address] [address] [place]: Scott Fletcher Hgb1.8 %Normal0-5Hol[facility] Medical Center – JacksonComment on above:Result Comment: Reference Range: Non-Smokers 0-2% Average Smoker 2-4% Heavy Smoker <10%Performed By: #### NGYN #### [facility] [address] [place] [address] [place]: SIMONE Fletcherhloride [Moles/Vol]108 mmol/LMcmjcg22-734XgwtiHolzer Medical Center – JacksonComment on above:Performed By: #### NGYN #### [facility] [address] [place] [address] [place]: Hermilo Thapa MDFIO240%NormalHolzer Medical Center – Jackson Comment on above:Performed By: #### NGYN #### [address] [address] [place]: Hemrilo Thapa MDGlucose [Mass/Vol]210 mg/pROmgf25-037OcocaHolzer Medical Center – JacksonComment on above:Performed By: #### NGYN #### [address] [address] [place]: Hermilo Thapa MDHCO3 (Bld) [Moles/Vol]20.2 mmol/DNbw26-04WyphzHolzer Medical Center – JacksonComment on above:Performed By: #### NGYN #### [address] [address] [place]: Hermilo Thapa MDHematocrit (Bld) [Volume fraction]35.7 %Low 36.3-47.1MKaiser Manteca Medical CenterComment on above:Performed By: #### NGYN #### [address] [address] [place]: Hermilo Thapa MDHemoglobin (Bld) [Mass/Vol]11.6 g/dLLow11.9-15.1 [facility] – JacksonComment on above:Performed By: #### NGYN #### [address] [address] [place]: Hermilo Thapa MDNegative Base Excess4.4 mmol/LHigh0.0-2.0Hol[facility] Medical Center – JacksonComment on above:Performed By: #### NGYN #### [address] [address] [place]: Hermilo Thapa MDOxygen (Bld) [Partial pressure]106.0 mm[Hg]High 75-95Hol[facility] Medical Center – JacksonComment on above:Performed By: #### NGYN #### [address] [address] [place]: Hermilo Thapa MDOxygen saturation in Blood97.1 %Hdewwy20-925 [facility] – JacksonComment on above:Performed By: #### NGYN #### [address] [address] [place]: Diego FletcherCO237.7 rwXbKiebxk22-51EbwvxHolzer Medical Center – JacksonComment on above:Performed By: #### NGYN #### [address] [address] [place]: Diego FletcherH (Bld)7.348 [pH]Low7.350-7.450Holzer Medical Center – JacksonComment on above:Performed By: #### NGYN #### [address] [address] [place]: DIEGO Fletcherotassium [Moles/Vol]4.5 mmol/LNormal3.6-5.0 [facility] – JacksonComment on above:Performed By: #### NGYN #### [address] [address] [place]: Hermilo Thapa MDSodium [Moles/Vol]135 mmol/WKyp963-752FkmbbHolzer Medical Center – JacksonComment on above:Performed By: #### NGYN #### [address] [address] [place]: Edmond Fletcherssium (POC)on 60-09-4171Gjxrmwxdb [Moles/Vol]4.8 mmol/LHigh3.5-4.5Summa Healthurgical Pathology Reporton 43-80-5987Nmigsqkk Pathology Report(NOTE) Path Number: [id number] -- Diagnosis -- A. CERVIX, UTERUS, BILATERAL [...] tissue reveals mcwilliams-red, spongy and vascularized tissue. Advanced Manager sections are submitted in 18c as follows: 1 anterior cervix 2 posterior cervix 3-4 posterior endomyometrium 5 safety representative anterior endomyometrium with fat attached at serosa 6 safety representative anterior fat attached to serosa 7-8 anterior cervix and lower uterine segment, longitudinal section 9-10 posterior cervix and lower uterine segment, longitudinal section 11-14 safety representative left fallopian tube, ovary and adnexal soft tissue 15-18 safety representative right fallopian tube, ovary and adnexal [...] totally embedded in 2c (more content not included)...NormalSumma Healthurgical Pathology Report (NOTE) Path Number: [id number] INTERPRETATION Pelvic washings: Satisfactory for evaluation. NEGATIVE FOR MALIGNANCY. Hypocellular fluid with few mononuclear inflammatory cells and strips of benign mesothelial cells. Electronically Signed Out John Paul Noble. 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 Gross Description PELVIC WASHING 30 ml. colorless fluid. MICROSCOPIC DESCRIPTION Microscopic examination performed. Non Assistant Center Director Thin Prep x 1, Cell Block w/ HANH x 1 Processing Lab: [address] [id number] Interpretation performed at [address] [phone] NONGYNECOLOGICAL CYTOPATHOLOGY CONSULTATION Patient Name: LESLI CLAY [facility] Rec: [id number] [facility] ANATOMIC PATHOLOGY [address] [place] [phone] NormalHolzer Medical Center – JacksonCBC with Diffon 85-65-0518Mho. Basophil0.03 k/uLNormal0.00-0.20[facility] Comment on above:Performed By: #### CP, LIPR, MG, CDP, TSH, GLYHGB #### [facility] [address] [place] [address] [place]: Rhett Fletcher.Imm.Granulocyte0.03 k/uLNormal0.00-0.30Hol[facility] Medical Center – JacksonComment on above:Performed By: #### CP, LIPR, MG, CDP, TSH, GLYHGB #### [address] [address] [place]: Rhett Fletcher.Neutrophil (Seg)6.45 k/uLNormal1.50-8.10 [facility] – JacksonComment on above:Performed By: #### CP, LIPR, MG, CDP, TSH, GLYHGB #### [address] [address] [place]: Hermilo Thapa MDBasophils/100 WBC (Bld)0 %Normal0-2MKaiser Manteca Medical CenterComment on above:Performed By: #### CP, LIPR, MG, CDP, TSH, GLYHGB #### [place] [address] [place]: Hermilo Thapa MDEosinophils (Bld) [#/Vol]0.15 10*3/uLNormal 0.00-0.44Hol[facility] Medical Center – JacksonComment on above:Performed By: #### CP, LIPR, MG, CDP, TSH, GLYHGB #### [place] [address] [place]: Hermilo Thapa MDEosinophils/100 WBC (Bld)2 %Normal1-4[facility] Center – JacksonComment on above:Performed By: #### CP, LIPR, MG, CDP, TSH, GLYHGB #### [facility] [address] [place] [address] [place]: Hermilo Thapa MDErythrocyte distribution width (RBC) [Ratio]14.7 %High11.8-14.4Hol[facility] Medical Center – JacksonComment on above:Performed By: #### CP, LIPR, MG, CDP, TSH, GLYHGB #### [facility] [address] [place] [address] [place]: Hermilo Thapa MDHematocrit (Bld) [Volume fraction]37.3 %Normal 36.3-47.1MKaiser Manteca Medical CenterComment on above:Performed By: #### CP, LIPR, MG, CDP, TSH, GLYHGB #### [address] [address] [place]: Hermilo Thapa MDHemoglobin (Bld) [Mass/Vol]11.7 g/dLLow11.9-15.1 [facility] – JacksonComment on above:Performed By: #### CP, LIPR, MG, CDP, TSH, GLYHGB #### [place] [address] [place]: Alex Fletcher granulocytes/100 WBC (Bld)0 %Normal0 [facility] – JacksonComment on above:Performed By: #### CP, LIPR, MG, CDP, TSH, GLYHGB #### [place] [address] [place]: Hermilo Thapa MDLymphocytes (Bld) [#/Vol]2.59 10*3/uLNormal 1.10-3.70[facility] – JacksonComment on above:Performed By: #### CP, LIPR, MG, CDP, TSH, GLYHGB #### [address] [address] [place]: Feliciano Fletchermphocytes/100 WBC (Bld)26 %Oolbtt33-38JsjgnHolzer Medical Center – JacksonComment on above:Performed By: #### CP, LIPR, MG, CDP, TSH, GLYHGB #### [address] [address] [place]: HAYLIE FletcherCH (RBC) [Entitic mass]27.6 feLocoff92.2-33.5 [facility] – JacksonComment on above:Performed By: #### CP, LIPR, MG, CDP, TSH, GLYHGB #### [facility] [address] [place] [address] [place]: HAYLIE FletcherCHC (RBC) [Mass/Vol]31.4 g/pQEsjuji22.4-34.8 [facility] – JacksonComment on above:Performed By: #### CP, LIPR, MG, CDP, TSH, GLYHGB #### [facility] [address] [place] [address] [place]: HAYLIE FletcherCV (RBC) [Entitic vol]88.0 wJQghtre99.6-102.9 [facility] – JacksonComment on above:Performed By: #### CP, LIPR, MG, CDP, TSH, GLYHGB #### [address] [address] [place]: HAYLIE Fletcheronocytes (Bld) [#/Vol]0.59 10*3/uLNormal 0.10-1.20[facility] – JacksonComment on above:Performed By: #### CP, LIPR, MG, CDP, TSH, GLYHGB #### [facility] [address] [place] [address] [place]: HAYLIE Fletcheronocytes/100 WBC (Bld)6 %Normal3-12Hol[facility] Center – JacksonComment on above:Performed By: #### CP, LIPR, MG, CDP, TSH, GLYHGB #### [facility] [address] [place] [address] [place]: Hermilo Thapa MDNeutrophil (Seg)66 %Slyi07-10EhfjaHolzer Medical Center – JacksonComment on above:Performed By: #### CP, LIPR, MG, CDP, TSH, GLYHGB #### [facility] [address] [place] [address] [place]: NOVA Fletcher Automated0.0 per 100 WBCNormal0.0Hol[facility] Medical Center – JacksonComment on above:Performed By: #### CP, LIPR, MG, CDP, TSH, GLYHGB #### [address] [address] [place]: Katie Fletcher mean volume (Bld) [Entitic vol]10.2 fL Normal8.1-13.5Hol[facility] Medical Center – JacksonComment on above:Performed By: #### CP, LIPR, MG, CDP, TSH, GLYHGB #### [place] [address] [place]: Aisha Fletchertelets (Bld) [#/Vol]325 10*3/uBWwuhmw425-128 [facility] – JacksonComment on above:Performed By: #### CP, LIPR, MG, CDP, TSH, GLYHGB #### [address] [address] [place]: LI Fletcher (Bld) [#/Vol]4.24 10*6/uLNormal3.95-5.11 [facility] – JacksonComment on above:Performed By: #### CP, LIPR, MG, CDP, TSH, GLYHGB #### [address] [address] [place]: LI Fletcher morphology finding Nom (Bld)ANISOCYTOSIS PRESENTNormalHolzer Medical Center – JacksonComment on above:Performed By: #### CP, LIPR, MG, CDP, TSH, GLYHGB #### [address] [address] [place]: KATIA Fletcher (Bld) [#/Vol]9.8 10*3/uLNormal3.5-11.3MKaiser Manteca Medical CenterComment on above:Performed By: #### CP, LIPR, MG, CDP, TSH, GLYHGB #### [address] [address] [place]: SIMONE Fletcheromp Metabolic Profon 22-51-8550Izfvbzo [Mass/Vol]4.4 g/dLNormal3.5-5.2MKaiser Manteca Medical CenterComment on above: Performed By: #### CP, LIPR, MG, CDP, TSH, GLYHGB #### [address] [address] [place]: Hermilo Thapa MDAlbumin/Glob Ratio1.6Rqtula1.0-2.5[facility] – JacksonComment on above:Performed By: #### CP, LIPR, MG, CDP, TSH, GLYHGB #### [address] [address] [place]: Everardo Fletcherline Moyj701 U/AIkbmkj28-781WhpqdHolzer Medical Center – JacksonComment on above:Performed By: #### CP, LIPR, MG, CDP, TSH, GLYHGB #### [address] [address] [place]: Hermilo Thapa MDALT [Catalytic activity/Vol]15 U/TGxmngj49-22 [facility] – JacksonComment on above:Performed By: #### CP, LIPR, MG, CDP, TSH, GLYHGB #### [address] [address] [place]: Hermilo Thapa MDAnion gap [Moles/Vol]13 mmol/LNormal9-16[facility] – JacksonComment on above:Performed By: #### CP, LIPR, MG, CDP, TSH, GLYHGB #### [facility] [address] [place] [address] [place]: Hermilo Thapa MDAST [Catalytic activity/Vol]18 U/RVlvnjl17-39 [facility] – JacksonComment on above:Performed By: #### CP, LIPR, MG, CDP, TSH, GLYHGB #### [address] [address] [place]: Hermilo Thapa MDBilirubin [Mass/Vol]0.3 mg/dLNormal0.00-1.20 [facility] – JacksonComment on above:Performed By: #### CP, LIPR, MG, CDP, TSH, GLYHGB #### [place] [address] [place]: Hermilo Thapa MDCalcium [Mass/Vol]9.9 mg/dLNormal8.6-10.4[facility] – JacksonComment on above:Performed By: #### CP, LIPR, MG, CDP, TSH, GLYHGB #### [place] [address] [place]: Hermilo Thapa MDChloride [Moles/Vol]103 mmol/VSgtgmw78-177TsbfvHolzer Medical Center – JacksonComment on above:Performed By: #### CP, LIPR, MG, CDP, TSH, GLYHGB #### [address] [address] [place]: Hermilo Thapa MDCO2 [Moles/Vol]23 mmol/LOazszs81-95JxuorHolzer Medical Center – JacksonComment on above:Performed By: #### CP, LIPR, MG, CDP, TSH, GLYHGB #### [address] [address] [place]: Hermilo Thapa MDCreatinine [Mass/Vol]1.0 mg/dLHigh0.50-0.90[facility] – JacksonComment on above:Performed By: #### CP, LIPR, MG, CDP, TSH, GLYHGB #### [facility] [address] [place] [address] [place]: Hermilo Thapa MDGFR/1.73 sq M.predicted among non-blacks MDRD (S/P/Bld) [Vol rate/Area]64 mL/min/{1.73_m2}Normal>60[facility] – JacksonComment on above:Result Comment: These results are not intended for [...] or following therapy that affects renal tubular secretion.Performed By: #### CP, LIPR, MG, CDP, TSH, GLYHGB #### [facility] [address] [place] [address] [place]: Hermilo Thapa MDGlucose [Mass/Vol]161 mg/kTJymz46-19TxewcKaiser Manteca Medical CenterComment on above:Performed By: #### CP, LIPR, MG, CDP, TSH, GLYHGB #### [facility] [address] [place] [address] [place]: Hermilo Thapa MDPotassium [Moles/Vol]4.7 mmol/LNormal3.7-5.3 [facility] – JacksonComment on above:Performed By: #### CP, LIPR, MG, CDP, TSH, GLYHGB #### [facility] [address] [place] [address] [place]: Hermilo Thapa MDProtein [Mass/Vol]7.9 g/dLNormal6.6-8.7[facility] – JacksonComment on above:Performed By: #### CP, LIPR, MG, CDP, TSH, GLYHGB #### [facility] [address] [place] [address] [place]: DELMAR Fletcherodium [Moles/Vol]139 mmol/BTnivnm089-052WdsxiHolzer Medical Center – JacksonComment on above:Performed By: #### CP, LIPR, MG, CDP, TSH, GLYHGB #### [facility] [address] [place] [address] [place]: Hermilo Thapa MDUrea nitrogen [Mass/Vol]21 mg/dLNormal8-23[facility] – JacksonComment on above:Performed By: #### CP, LIPR, MG, CDP, TSH, GLYHGB #### [facility] [address] [place] [address] [place]: Hermilo Thapa MDHemoglobin A1Con 29-17-1965Leyuzxz [Mass/Vol]206 mg/dLNormalHolzer Medical Center – JacksonComment on above:Result Comment: The ADA and AACC recommend providing the estimated average glucose result to permit better patient understanding of their HBA1c result.Performed By: #### CP, LIPR, MG, CDP, TSH, GLYHGB #### [facility] [address] [place] [address] [place]: Hermilo Thapa MDHbA1c (Bld) [Mass fraction]8.8 %High4.0-6.0[facility] – JacksonComment on above:Performed By: #### CP, LIPR, MG, CDP, TSH, GLYHGB #### [facility] [address] [place] [address] [place]: Hermilo Thapa MDLipid Profileon 84-77-7676Pnbkxuvvizm [Mass/Vol] 117 mg/dLNormal0-199[facility] – JacksonComment on above:Result Comment: Cholesterol Guidelines: <200 Desirable 200-240 Borderline >240 UndesirablePerformed By: #### CP, LIPR, MG, CDP, TSH, GLYHGB #### [facility] [address] [place] [phone] [place]: SIMONE Fletcherholesterol in HDL [Mass/Vol]36 mg/dLLow>40[facility] – JacksonComment on above:Result Comment: HDL Guidelines: <40 Undesirable 40-59 Borderline >59 DesirablePerformed By: #### CP, LIPR, MG, CDP, TSH, GLYHGB #### [address] [address] [place]: SIMONE Fletcherholesterol in LDL [Mass/Vol]60 mg/dLNormal0-100 [facility] – JacksonComment on above:Result Comment: LDL Guidelines: <100 Desirable 100-129 Near to/above Desirable 130-159 Borderline >159 Undesirable Direct (measured) LDL and calculated LDL are not interchangeable tests.Performed By: #### CP, LIPR, MG, CDP, TSH, GLYHGB #### [place] [address] [place]: SIMONE Fletcherholesterol in VLDL [Mass/Vol]21 mg/dLNormal [facility] – JacksonComment on above:Performed By: #### CP, LIPR, MG, CDP, TSH, GLYHGB #### [facility] [address] [place] [address] [place]: Shalini Fletcher.total/Cholesterol in HDL [Mass ratio]3.0 {ratio}NormalHolzer Medical Center – JacksonComment on above: Performed By: #### CP, LIPR, MG, CDP, TSH, GLYHGB #### [facility] [address] [place] [address] [place]: Hermilo Thapa MDTriglyceride [Mass/Vol]107 mg/dLNormal<150Hol[facility] – JacksonComment on above:Result Comment: Triglyceride Guidelines: <150 Desirable 150-199 Borderline 200-499 High >499 Very high Based on AHA Guidelines for fasting triglyceride, November 2011.Performed By: #### CP, LIPR, MG, CDP, TSH, GLYHGB #### [facility] [place] [address] [place]: Jorge Luis Fletchergnesiumon 65-73-9501Jpkyuswue [Mass/Vol]1.6 mg/dLNormal1.6-2.4[facility] – JacksonComment on above:Performed By: #### CP, LIPR, MG, CDP, TSH, GLYHGB #### [facility] [place] [address] [place]: Hermilo Thapa MDThyroid Stim. Horm.on 65-39-6949Frbeqek Stim. Horm.0.74 uIU/mLNormal0.27-4.20[facility] – JacksonComment on above: Performed By: #### CP, LIPR, MG, CDP, TSH, GLYHGB #### [facility] [address] [place] [address] [place]: Hermilo Thapa MDType + Screenon 99-15-1634Zwee + ScreenSample Expiration 07/31/2023,2359 Arm Band Number [place] [id number] ABO/Rh(D) O POSITIVE Antibody Screen NEGATIVENoWadsworth-Rittman HospitalComment on above: Performed By: #### TYS ####[address] [address] Lab Director: Hermilo Thapa MDHemoglobin A1Con 06-30-2023 Glucose [Mass/Vol]177 mg/dLNormSt. Mary's Medical CenterComment on above:Result Comment: The ADA and AACC recommend providing the estimated average glucose result to permit better patient understanding of their HBA1c result.Performed By: #### GLYHGB #### [facility] [address] [place] [address] [place]: Hermilo Thapa MD #### TSHX #### [address] [place] [address] [place]: Salvador Israel MDHbA1c (Bld) [Mass fraction]7.8 %High4.0-6.0Mer[facility] County Community HospitalComment on above:Performed By: #### GLYHGB #### [address] [address] [place]: Hermilo Thapa MD #### TSHX #### [facility] [address] [place] [address] [place]: Salvador Israel MDLipid Profileon 20-75-5962Tkbsqkqmpaa [Mass/Vol] 144 mg/dLNormal0-199[facility] HospitalComment on above:Result Comment: Cholesterol Guidelines: <200 Desirable 200-240 Borderline >240 UndesirablePerformed By: #### LIPR #### [address] [address] [place]: Hermilo Thapa MDCholesterol in HDL [Mass/Vol]48 mg/dLNormal>40 [facility] on above:Result Comment: HDL Guidelines: <40 Undesirable 40-59 Borderline >59 DesirablePerformed By: #### LIPR #### [address] [address] [place]: Hermilo Thapa MDCholesterol in LDL [Mass/Vol]73 mg/dLNormal0-100 [facility] HospitalCommclaren northern [place] on above:Result Comment: LDL Guidelines: <100 Desirable 100-129 Near to/above Desirable 130-159 Borderline >159 Undesirable Direct (measured) LDL and calculated LDL are not interchangeable tests.Performed By: #### LIPR #### [address] [address] [place]: Hermilo Thapa MDCholesterol in VLDL [Mass/Vol]23 mg/dLNormal [facility] HospitalComment on above:Performed By: #### LIPR #### [facility] [address] [place] [address] [place]: SIMONE Fletcherholesterol.total/Cholesterol in HDL [Mass ratio]3.0 {ratio}NormalMercer County Community HospitalComment on above:Performed By: #### LIPR #### [facility] [place], [place] [id number] [place]: Hermilo Thapa MDTriglyceride [Mass/Vol]115 mg/dLNormal<150Mer[facility] County Community HospitalComment on above:Result Comment: Triglyceride Guidelines: <150 Desirable 150-199 Borderline 200-499 High >499 Very high Based on AHA Guidelines for fasting triglyceride, November 2011.Performed By: #### LIPR #### [facility] [address] [place] [phone] [place]: Hermilo Thapa MDLaboratory - Hematology and Cell countson 41-33-8155UdO0o (Bld) [Mass fraction]7.8 %[facility] Hospital LimaTSH w/reflex to FT4on 68-68-0646Yazrojr Stim. Horm.3.23 uIU/mLNormal0.30-5.00[facility] Community HospitalComment on above:Performed By: #### GLYHGB #### [facility] [address] [place] [phone] [place]: Hermilo Thapa MD #### TSHX #### [facility] [address] [place] [address] [place]: Salvador Israel, GARDENIA ABDOMEN PELVIS W IV CONTRASTon [id number] ABDOMEN PELVIS W IV CONTRASTEXAMINATION: CT OF THE ABDOMEN AND PELVIS WITH [...] and iliac nodes. No obvious uterine mass. Peritoneum/Retroperitoneum: No retroperitoneal lymphadenopathy or acute mesenteric findings. [...] Signed by: Etta Jay MD 06/20/23 Final resultNoWadsworth-Rittman HospitalHPV DNA High Riskon 06-16-2023 HPV InterpNMary Rutan HospitalComment on above:Result Comment: This test amplifies and detects DNA [...] suspected sexual abuse or for other forensic purposes.Performed By: #### HPVH ####[facility] [place] [phone] Director: Hermilo Thapa MDHPV Type 16Not detectedNormalNOTDEAultman Orrville HospitalComment on above:Performed By: #### HPVH ####[facility] [place], [place] [id number] lab Director: Hermilo Thapa MDHPV Type 18Not detectedSalem Hospital Comment on above:Performed By: #### HPVH ####[address] [place] [address] Lab Director: Hermilo Thapa MDOther High Risk HPVNot detectedNoCottage Grove Community HospitalComment on above: Performed By: #### HPVH ####[address] [address] Lab Director: Hermilo Thapa MDHPV Sample.THIN PREPNormal [facility] – JacksonComment on above:Performed By: #### HPVH ####[facility] [address] [place] [address] Lab Director: Olga FletcherceCERVICAL [facility] Comment on above:Performed By: #### HPVH ####[address] [address] Lab Director: SIMONE Fletcherytology Report on [id number] report Cyto stain.thin prep Doc (Cvx/Vag)(NOTE) Path Number: [id number] DIAGNOSIS Imaged ThinPrep Pap - Cervical (1 monolayer slide): Specimen Adequacy: Satisfactory for evaluation. - Endocervical/transformation zone component present. Descriptive Diagnosis: Negative for [...] or for other forensic purposes. Performed at [facility], [address] [place] [address] . Source of Specimen: A: Imaged ThinPrep Pap - Cervical (1 monolayer slide) HPV Reflex?......................HPV Regardless Clinical History Postmenopausal Z12.4 Encounter for screening for malignant neoplasm of cervix Processing Lab: [address] [address] Interpretation performed at [address] [address] This Pap Test has been evaluated with [...] result. GYNECOLOGIC CYTOLOGY REPORT Patient Name: CHRIS CLAYLINE JanetGhulam [facility] Rec: [id number] [facility] ANATOMIC PATHOLOGY [address] [place] [address]. [place], [place] [id number] NoSelect [facility] Specialty [facility] - [facility]-FairhillURGICAL PATHOLOGY REFERENCE LAB CONSULTon [id number] REPORTNormalCTriHealth Good Samaritan Hospital Comment on above:Order Comment: Specimen Type: FORMALIN-FIXED PARAFFIN-EMBEDDED TISSUE SPECIMEN Ordering Facility: [facility] Address: [address] [place] [phone] Comment: Surgical Pathology Report Case: [id number] Authorizing Provider: Lukasz Neal MD Collected: 05/29/2023 12:39 PM Ordering Location: [facility] Received: 05/29/2023 12:38 PM [facility] Pathologist: Jeri Dickerson MD Specimen: Slide(s), 2 SLIDES ([id number])Performed By: #### [id number] #### [facility] CLIA [id number] [address] [place] [address] STATES OF AMERICACLINICAL HISTORYCONSULT REQUESTEDPeoples Hospital on above:Order Comment: Specimen Type: FORMALIN-FIXED PARAFFIN-EMBEDDED TISSUE SPECIMEN Ordering Facility: [facility] Address: [address] [place], [place] [phone] By: #### [id number] #### [facility] CLIA [id number] [address] [place] [address] OF AMERICADIAGNOSIS COMMENTThank you for sending this interesting endometrial biopsy from a 63-year-old woman in consultation.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 Further, this carcinoma has mucinous differentiation and a reasonable component of solid growth to warrant classification as FIGO grade 2. My colleague [address] Gi Carrasco has reviewed this case and agrees. If you have any questions or clinical follow-up on this case, please feel free to give me a call at .[facility] on above:Order Comment: Specimen Type: FORMALIN-FIXED PARAFFIN-EMBEDDED TISSUE SPECIMEN Ordering Facility: [facility] Address: [address] [place], [place] [phone] By: #### [id number] #### [facility] CLIA [id number] [address] [place] [address] STATES OF [facility] MEDICAL CENTERFINAL DIAGNOSISNormal [facility] on above:Order Comment: Specimen Type: FORMALIN-FIXED PARAFFIN-EMBEDDED TISSUE SPECIMEN Ordering Facility: [facility] Address: [address] [place], [place] [phone] Comment: Review of outside slides, dated 05/26/2023: Endometrium, curettage: -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 Performed By: #### [id number] #### [facility] CLIA [id number] [address] [place], [place] [id number] [place] OF AMERICAFINAL PERFORMING LABNormal [facility], IncComment on above:Order Comment: Specimen Type: FORMALIN-FIXED PARAFFIN-EMBEDDED TISSUE SPECIMEN Ordering Facility: [facility] Address: [address] [place] [phone] Comment: Diagnostic interpretation performed at [place] [address] CLIA# [id number] Scalder: Josh Orellana M.D.Performed By: #### [id number] #### [facility] CLIA [id number] [address] [place], [place] [address] [facility] Panel Informationon 56-95-1018Ecrdrsk Zbsoyir694EbmuacyfoScci Hospital LimaLaboratory - Chemistry and Chemistry - challengeon 42-43-6812Oilhzos [Mass/Vol]4.0 g/dL [facility]imaALP [Catalytic activity/Vol]104 U/LFCincinnati VA Medical CenterALT [Catalytic activity/Vol]19 U/[facility] HospitalAST [Catalytic activity/Vol]17 U/[facility] HospitalBilirubin [Mass/Vol]0.2 mg/dLScci Hospital LimaCalcium [Mass/Vol]9.8 mg/dLScci Hospital LimaChloride [Moles/Vol]101 mmol/LFCincinnati VA Medical CenterCO2 [Moles/Vol]28 mmol/[facility] HospitalCreatinine [Mass/Vol]0.75 mg/dLScci Hospital LimaGlucose [Mass/Vol]228 mg/dLScci Hospital LimaPotassium [Moles/Vol]5.0 mmol/LFCincinnati VA Medical CenterProtein [Mass/Vol]6.8 g/dL [facility]. Anthony's Hospitalodium [Moles/Vol]137 mmol/LFCincinnati VA Medical CenterUrea nitrogen [Mass/Vol]21 mg/dLScci Hospital Lima Laboratory - Hematology and Cell countson 09-92-7694ChG0v (Bld) [Mass fraction] 8.9 %[facility]No Panel Informationon 02-40-0956Cerewhecc GFR (Non- Sulqsxib32 mL/minScci Hospital LimaNo Panel Informationon 70-96-0114Grkdvdm Eshuonn980MqsqbbllhScci Hospital LimaA1C HEMOGLOBINon 33-50-2705InM8u (Bld) [Mass fraction]9.7 %[employer] Other Glucose - FINGER STICKon 87-39-0312Etzidkg [Mass/Vol] 178 mg/dLSogou Other HbA1c (Bld) [Mass fraction]on 02-20-2459L6C HEMOGLOBIN [employer] Other Glucose - FINGER STICKon 57-49-2794Iypfikk [Mass/Vol] 180 mg/dLNoSogou Other A1C HEMOGLOBINon 18-14-8447MyI9z (Bld) [Mass fraction] 8.3 %[employer] Other Glucose - FINGER STICKon 62-91-7336Mbmpvku [Mass/Vol] 211 mg/dLNoSogou Other HbA1c (Bld) [Mass fraction]on 17-21-1484D7V HEMOGLOBIN [employer] Other Creatinine (Bld) [Mass/Vol]Ordered By: Martine Tobias on 56-20-0757Cfehkbwkvn [Mass/Vol]0.7 mg/dL0.6-1.3FCincinnati VA Medical CenterComment on above:ER/ESD physician is notified/shown all ISTAT results.Critical values may be confirmed by laboratorytesting ifdeemed necessary by ER attending doctor.A1C HEMOGLOBINon 32-20-1832YeP3t (Bld) [Mass fraction] 8.0 %[employer] Other Glucose - FINGER STICKon 53-13-6791Qgpzkdl [Mass/Vol] 156 mg/dLNort Soft Health Technologies Other HbA1c (Bld) [Mass fraction]on 44-55-7891F6G HEMOGLOBIN [facility] [employer] Other POINT OF CARE GLUCOSEon 19-96-2000Zfaoepn [Mass/Vol] 185 mg/dLCritically xfwn62-661Mrn [facility] HospitalComment on above:Performed By: #### POCGLUC #### [facility] [address] [address] [address] Keegan NealA1C HEMOGLOBINon 73-18-8158TmK5g (Bld) [Mass fraction]7.8 %[facility] [employer] Other CREATININEon 25-72-8764Bgkcmnbvqn [Mass/Vol]0.82 mg/dL Normal0.55-1.02Mount St. Mary HospitalComment on above:Performed By: #### CREA #### [facility] [address] [address] [address] Keegan GuerreroGFR-AF MALAWIAN>60Normal>=60The Marymount HospitalComment on above:Performed By: #### CREA #### [facility] [address] [place] [address] Dr. Keegan GuerreroGFR-NON AF MALAWIAN>60Normal>=60Mount St. Mary HospitalComment on above:Performed By: #### CREA #### [facility] [address] [place] [address] Dr. Keegan NealCT LSPINE WO W CONon 63-95-8053PB LSPINE WO W CONEXAMINATION: CT LSPINE WO W CON, 03/06/2022 8:24 [...] Electronically authenticated by: BLANE THOMAS Date: 2022-03-06 11:22[facility] CampusGlucose - FINGER STICKon 24-27-0357Liqksnr [Mass/Vol]200 mg/dL [employer] Other HbA1c (Bld) [Mass fraction]on 09-63-2620B2A HEMOGLOBIN [employer] Other a1c HEMOGLOBINon 80-30-5038IcU9b (Bld) [Mass fraction] 7.0 %[employer] Other Glucose - FINGER STICKon 86-72-0518Reafvxc [Mass/Vol] 110 mg/dLNoSogou Other HbA1c (Bld) [Mass fraction]on 72-35-0510Z6M HEMOGLOBIN [employer] Other a1c HEMOGLOBINon 87-57-7692ZhX1n (Bld) [Mass fraction] 6.6 %[employer] Other Glucose - FINGER STICKon 72-66-9712Vlmrlry [Mass/Vol] 110 mg/dLSogou Other HbA1c (Bld) [Mass fraction]on 79-35-6549W5D HEMOGLOBIN LocalGuiding [facility] [employer] Other a1c HEMOGLOBINon 30-46-3117LsL0r (Bld) [Mass fraction] 6.0 %[employer] Other Glucose - FINGER STICKon 36-94-0243Gnrynyw [Mass/Vol] 98 mg/dLNort Soft Health Technologies Other HbA1c (Bld) [Mass fraction]on 91-70-0708C2D HEMOGLOBIN [employer] Other Discharge Summaryon 71-96-9029Zhgvksffk SummaryMR#: [id number] [facility]UniversDun[facility] Pt[facility] Name: Lesli Clay Admitted: 09/08/2016 Discharged: 09/15/2016 Date of : 1960 Physician: Marline Blake M.D. DISCHARGE SUMMARYPRIMARY DIAGNOSIS: Right knee osteoarthritis.SECONDARY DIAGNOSES: None.HOSPITAL COURSE AND TREATMENT RENDERED: This is a 56-year-old female whohad right knee osteoarthritis, was refractory to treatment withconservative management. Options were discussed, and felt that she wouldbenefit from a right total knee arthroplasty. This procedure was done nick elective basis on 09/08/2016 and proceededwithout complication.Postoperatively, the patient was admitted for pain control [...] she was dischargedon 09/15/2016 with the following instructions:1.Weightbearing as tolerated, right lower extremity.2. Diabetic diet.3. Follow up with Dr. Blake .4. Do not remove dressing.5. The patient is discharged on the following medications: Omeprazole, baclofen, Lovenox, Keflex, lisinopril, metformin, Pamelor, Wellbutrin, docusate, and Percocet.Electronically Signed by:Marline Blake M.D. 10/05/2016 11:23 A ___Marline Blake M.D. I have reviewed this discharge summary and confirmed the resident'sdocumentation. Please note that there may be additional documentation fromme. Date Dict: 09/24/2016/02:52 P/Marline Cano M.D.Date Trans: 09/25/2016 08:08 A/mmoDN_JN:[id number]: Rosales Taylor M.D. [address] [facility] [address]Eqk[address]OunMer[address] Health [address] Vincent Medical Center 3 [facility] 74-68-6449LYSL RIGHT 3 [facility] CENTERniPremier Health Miami Valley HospitalDepartment of Bwzhrigfn[address] [place] [phone] Patien t Name: LESLI CLAY : 1960ex: FAge: Race: WhiteMRN: [id number]. Location: 84Patient Status: Date: 09/25/2016 8:15:00 AMCompleted Date: 09/25/2016 08:22 AMRequesting Provider: MARLINE BLAKE Attending Provider: Report Copy To: Signs & Symptoms: Z96.651 Presence of right artificial knee joint D30Hdhqidp: AthenaComments: , , , Ordering Provider - MARLINE BLAKE MD , Exam: KNEE RIGHT 3 VWSAccession #: [id number] KNEE RIGHT 3 VWS 09/25/2016 8:22 AM EDT SIGNS ANDSYMPTOMS: Z96.651 Presence of right artificial knee joint I10 TECHNOLOGIST COMMENTS: ortho follow rt knee replacement 09/08/2016 QUESTION FOR THE RADIOLOGIST: , , , Ordering Provider - MARLINE BLAKE MD , PROTOCOL: AP,Lateral and Tangential [...] changes. Electronically signed by:Mindy Tomas. Transcribed by: [email or web address], User Resident: Electronically Signed by: MINDY TOMAS @ 09/25/2016 04:44 [facility] Medical CenterComment on above:Order Comment: , , , Ordering Provider - MARLINE BLAKE MD , Consultationon 37-29-5236XqqvaiexnffaEE#: [id number] Health St. [facility] Pt. Name: Lesli Clay Date of Service:09/20/2016 Room #: CAROLYN Birthdate: 1960 Referring Physician: Андрей is a 51-cibd-bertbwntz, she is a patient of Dr. Blake.CHIEF [...] surrounding theincision. The patient has been working withPT and has been using the rightlower extremity. She denies fevers or chills. She denies nausea andvomiting. The patient still takes Percocet 2 tablets every 4 hours. She iscurrently taking Keflex andhas been taking Keflex since her surgery 2weeks [...] swelling, pain, andwarmth of the right lower extremitysurrounding the incision from the TKA 2weeks prior.PHYSICAL [...] fluid. There is a small amount of s eepage from the inferioraspect of the incision. The [...] given her recentsurgery. Her sodium is 137, potassiumis 4.0, chloride is 99, carbondioxide is 29, her BUN is 13, creatinine is 0.91, and her glucose is 151.IMAGING STUDIES: No imaging studies were performed at this time.PROBLEM LIST: This is a patient with significant postoperative swellingand prolonged drainage. The patient was sent home and told tofollow up inclinic on Thursday of next week, September 23, 2016, with Dr. Blake. [facility], she was placed in a hinged knee brace to prevent flexion of theknee. She was given renewal of Keflex. We p rescribed [place] for pain controland we applied an Armando wrap for edema control.Reviewed By:Desmond Mena MD 09/22/2016 08:26 AElectronically Signed by:Martin Fonseca MD 09/25/2016 03:22 P Martin Fonseca MD I was not present but assume all responsibility for the exam. NOTBILLAB LEDate Dict: 09/21/2016/10:51 A/Desmond Mena MDDate Trans: 09/21/2016 11:52 A/Nigel_JN:[id number]: Rosales Taylor M.D. [address] [facility] [address]XddmneZyqClinton Memorial HospitalBASIC METABOLIC PANEL on 06-95-2141Wkdfquy5.6 mg/dLNormal8.6-10.3The [facility] LimaComment on above:Performed By: #### [address]75[address] ####[facility] [place] [address], FLOIrbvyhxv34 mmol/WDqifrp32-991Uhl [facility] LimaComment on above:Performed By: #### 50392 ####[facility] [place] [address], [facility] CO229 mmol/XPeygmm33-24Udw [facility]imaComment on above: Performed By: #### 77339 ####[facility] [place] [address], [facility] CENTERCreatinine0.91 mg/dLNormal0.60-1.20The [facility] LimaComment on above:Performed By: #### 04207 ####[address] [place] [address], [facility] HEALTH CENTEReGFR (black) mL/min/{1.73_m2}Normal>60The [facility] LimaComment on above:Performed By: #### 40453 ####[facility] [place], [place] [address] [address], USAeGFR (non-black)mL/min/{1.73_m2}Normal>60The [facility] LimaComment on above:Performed By: #### [address]6215 ####[address] [place] [address], [facility] Glucose mass geev671 mg/zANucd32-527Gfd [facility] Comment on above:Performed By: #### 20000 ####[facility] [place] [address].[place] [address], [facility] CENTERPotassium molar conc4.0 mmol/L Normal3.5-5.1The [facility] LimaComment on above:Performed By: #### [address] ####[address] [place] [address], JSHWuiytg130 mmol/AFltixk940-273Kqc [facility] LimaComment on above:Performed By: #### 15508 ####[address] [place] [address], [facility] CENTERUrea krpghzko60 mg/dLNormal7-25The [facility] LimaComment on above:Performed By: #### [address] ####[place] [address], [facility] CENTERC REACTIVE PROTEINon 09-20-2016C reactive protein (CRP)28.5 mg/LHigh0.0-7.0The [facility] LimaComment on above:Performed By: #### [address] ####[place] [address], [facility] CBC W/DIFFon 83-05-7452Uqafaxqqn Auto #/vol (Bld)0.5 %Normal0.0-2.0The [facility] LimaComment on above:Performed By: #### [address] ####[place] [address], [facility] Eosinophils/100 leukocytes2.1 %Normal0.0-5.0The [facility] LimaComment on above:Performed By: #### [address] ####[place] [address], K[facility] HEALTH CENTERErythrocyte distribution width Auto Ratio (RBC)17.1 %High11.5-16.9The [facility] Comment on above:Performed By: #### [address]861 ####[place] [address], [facility]ALTH CENTERErythrocytes (RBC)3.39 mill/mm3Low 3.50-5.50The [facility] LimaComment on above:Performed By: #### 466[address] ####[place] [address], [facility] CENTERHematocrit (HCT)31.4 %Low36.0-48.0The [facility] Hospital LimaComment on above:Performed By: #### [address] ####[place] [address], [facility]ALTH CENTERHemoglobin mass conc (Bld)10.3 g/dLLow12.0-15.0The [facility] LimaComment on above: Performed By: #### 44600 ####[facility] [facility] [place] [place] [address], [facility] CENTERLymphocytes/100 rjelnjjcrj64.8 %Low20.0-40.0The [facility] LimaComment on above:Performed By: #### 79945 ####[facility] [facility] [place] [address], [facility] MCH30.3 zdWissyz68.0-32.0The [facility] LimaComment on above:Performed By: #### [address] ####[place] [address] [facility] [place] [place] [address], [facility]ALTH CENTERMCHC mass conc (RBC)32.7 g/rNPqgjml38.0-36.0 The [facility] LimaComment on above:Performed By: #### 81880 ####[facility] [facility] [place] [address], [facility] MCV92.6 fCVklybl59.0-100.0The [facility] LimaComment on above:Performed By: #### 59064 ####[facility] [facility] [place] [address], [facility]ENTERMETHODNormalThOhioHealth Mansfield HospitalComment on above:Result Comment: Automated differential performedNormal RBC MorphologyPerformed By: #### 56475 ####[facility] [facility] [place] [address], [facility] CENTERMONOS5.8 %Normal2-8The [facility] LimaComment on above:Performed By: #### 14098 ####[facility] [facility] [place] [address], [facility]ALTH CENTERNeutrophils/100 ejdrlferjj85.8 %Hail86-35Dan [facility] LimaComment on above:Performed By: #### 16188 ####[facility] [place] [address], [place] QDT486 Thou/ho7Spsyde513-868Nje [facility] LimaComment on above:Performed By: #### 26239 ####[facility] [place] [address], [place] WBC (Leukocytes)10.6 Thou/gg0Luhw1.0-10.0The [facility] Comment on above:Performed By: #### 56365 ####[facility] [address], USASEDIMENTATION RATEon 90-11-2445ZVF DFDO790 mm/hrHigh0-20The [facility] LimaComment on above: Performed By: #### 94183 ####[facility] [place], [place] [address], [place] [address], K[facility]ENTA HEALTH CENTERPOC GLUCOSE LABon 44-57-9854Ziimvbp mass awyg638 mg/dL Pela94-067Eel [facility] LimaComment on above:Performed By: #### 65830 ####[facility] [place] [address], [facility] HEALTH CENTERGlucose mass lzfz725 mg/nENlqu00-230Uyb [facility] LimaComment on above:Performed By: #### 75748, 40593 ####[facility] [place] [address], K[facility]ENTA HEALTH CENTERPOC GLUCOSE LABon 41-78-9933Bokfzoz mass ucjj511 mg/xFRjpm69-738Qpj [facility] LimaComment on above:Performed By: #### 88809, 39965 ####[facility] [place] [address], [facility] CENTERGlucose mass bkme586 mg/dL Ohnb58-559Ojt [facility] LimaComment on above:Performed By: #### 57365, 37121 ####[facility] [place] [address], USAGlucose mass kbvi733 mg/qZKiuz37-392Fhi [facility] LimaComment on above:Performed By: #### 75477, 53930 ####[facility] [place] [address], [place] Glucose mass uouf514 mg/wUIpqm13-777Ddo [facility] Comment on above:Performed By: #### 37871, 80576 ####[facility] [place] [address], USAPOC GLUCOSE LABon 77-37-4165Ejmfaeu mass dsvu241 mg/cTYiso02-720Wbe [facility] LimaComment on above:Performed By: #### 31111, 92310 ####[facility] [place] [address], USAGlucose mass qacp841 mg/dL Geuu13-591Cac [facility] LimaComment on above:Performed By: #### 57618, 32483 ####[facility] [place] [address], USAGlucose mass ljup032 mg/iOQdlx86-345Uhd [facility] LimaComment on above:Performed By: #### 41044, 99166 ####[facility] [place] [address], [place] Glucose mass cpfn156 mg/kVFtjd12-641Ukz [facility] Comment on above:Performed By: #### 70571, 10736 ####[facility] [place] [address], USAGlucose mass qizk680 mg/dL Wfdr96-527Acg [facility] LimaComment on above:Performed By: #### 18807, 08305 ####[facility] [place] [address], USAPOC GLUCOSE LABon 70-66-5477Scztnsz mass crug926 mg/dL Gyym55-425Fhb [facility] LimaComment on above:Performed By: #### 48569, 38019 ####[facility] [place] [address], USAGlucose mass abeq667 mg/fONgoq78-952Xud [facility] LimaComment on above:Performed By: #### 10287, 02285 ####[facility] [place] [address], [place] Glucose mass hadl111 mg/aLWizg46-808Hlz [facility] Comment on above:Performed By: #### 78301, 91963 ####[facility] [place] [address], USAGlucose mass rlqp730 mg/dL Beql85-666Flz [facility] LimaComment on above:Performed By: #### 90486, 55113 ####[facility] [place] [address], USAPOC GLUCOSE LABon 22-52-4151Gmzhhiz mass delw394 mg/dL Kqsb80-601Ztr [facility] LimaComment on above:Performed By: #### 26668, 04685 ####[facility] [place] [address], USAGlucose mass nrho613 mg/pNKfuv16-799Jlo [facility] LimaComment on above:Performed By: #### 28537, 42112 ####[facility] [place] [address], [place] Glucose mass yufv095 mg/aFCiur79-744Utf [facility] Comment on above:Performed By: #### 37639, 23479 ####[facility] [place] [address], USAGlucose mass sxot335 mg/dL Iptj93-280Rvx [facility] LimaComment on above:Performed By: #### 10137, 66605 ####[facility] [place] [address], USAPOC GLUCOSE LABon 90-31-5586Xzxadof mass ebcl382 mg/dL Lzak04-226Vqv [facility] LimaComment on above:Performed By: #### 48480, 12095 ####[facility] [place] [address], USAGlucose mass wtrr318 mg/gFOdiz82-745Kqt [facility] LimaComment on above:Performed By: #### 50288 ####[facility] [place] [address], USAGlucose mass conc 240 mg/jMLsdu28-661Cpm [facility] LimaComment on above: Performed By: #### 42753 ####[facility] [place] [address], USAGlucose mass btmj093 mg/eYDlxf20-238Stg [facility] LimaComment on above:Performed By: #### 32469 ####[facility] [place] [address], USABASIC METABOLIC PANELon 12-19-1476Pgrmghi5.4 mg/dLLow8.6-10.3The [facility] LimaComment on above:Order Comment: No: Do not add to previous drawPerformed By: #### 91197 ####[facility] [place] [address], WXSZixumupm58 mmol/ZNpqyks80-704Nbw [facility] LimaComment on above:Order Comment: No: Do not add to previous drawPerformed By: #### 37976 ####[facility] [place] [address], IWCFU167 mmol/CWewszu39-82Nqr [facility] Comment on above:Order Comment: No: Do not add to previous drawPerformed By: #### 19859 ####[facility] [place] [address], USACreatinine1.11 mg/dLNormal0.60-1.20The [facility] LimaComment on above:Order Comment: No: Do not add to previous drawPerformed By: #### 79836 ####[facility] [place] [address], USAeGFR (black)mL/min/{1.73_m2}Normal>60[facility] [place]imaComment on above:Order Comment: No: Do not add to previous draw Performed By: #### [id number] ####[facility] [place] [address], USAeGFR (non-black)51 ml/min/1.73sq mAbnormal>60[facility] [place]imaComment on above:Order Comment: No: Do not add to previous drawPerformed By: #### [id number] ####[facility] [place] [address], USAGlucose mass jgrt494 mg/dLHigh 70-100[facility] [place]imaComment on above:Order Comment: No: Do not add to previous drawPerformed By: #### [id number] ####[facility] [place] [address], USAPotassium molar conc4.2 mmol/LNormal3.5-5.1[facility] [place]imaComment on above:Order Comment: No: Do not add to previous drawPerformed By: #### [address]39 ####[facility] [place] [address], YFSGodixk320 mmol/L Cks498-332Zlt [facility] Hospital LimaComment on above:Order Comment: No: Do not add to previous drawPerformed By: #### 05918 ####[facility] [place] [address], USAUrea axiahhhz81 mg/dL Normal7-25The [facility] Hospital LimaComment on above:Order Comment: No: Do not add to previous drawPerformed By: #### 72367 ####[facility] [place] [address], [facility] CENTERCBC W/DIFFon 09-09-2016 Basophils Auto #/vol (Bld)0.2 %Normal0.0-2.0The [facility] LimaComment on above:Order Comment: No: Do not add to previous drawPerformed By: #### 87279 ####[facility] [place] [address], [facility] CENTEREosinophils/100 leukocytes1.0 %Normal0.0-5.0The [facility] LimaComment on above:Order Comment: No: Do not add to previous drawPerformed By: #### 230[address] ####[place] [address], [facility] CENTERErythrocyte distribution width Auto Ratio (RBC)16.9 %Eacwic38.5-16.9The [facility] LimaComment on above:Order Comment: No: Do not add to previous drawPerformed By: #### 66272 ####[facility] [place] [address], [facility] Erythrocytes (RBC)3.31 mill/gp0Ijl4.50-5.50The [facility] LimaComment on above:Order Comment: No: Do not add to previous drawPerformed By: #### 74742 ####[facility] [place] [address], [facility] CENTERHematocrit (HCT)30.7 %Low36.0-48.0The [facility] Hospital LimaComment on above:Order Comment: No: Do not add to previous drawPerformed By: #### 36317 ####[place] [address], [facility] CENTERHemoglobin mass conc (Bld)10.0 g/dLLow12.0-15.0The [facility] LimaComment on above:Order Comment: No: Do not add to previous drawPerformed By: #### 85297 ####[facility] [place] [address], USALymphocytes/100 ejmizohojz48.6 %Normal 20.0-40.0The [facility] LimaComment on above:Order Comment: No: Do not add to previous drawPerformed By: #### 76228 ####[facility] [place] [address], KTLXSC49.3 ojJhvefw39.0-32.0 The [facility] Hospital LimaComment on above:Order Comment: No: Do not add to previous drawPerformed By: #### 40173 ####[facility] [facility] [place] [address], [facility] [place] [facility] [place] CITYHC mass conc (RBC)32.7 g/yLXykfcp13.0-36.0The [facility] LimaComment on above:Order Comment: No: Do not add to previous drawPerformed By: #### 42662 ####[facility] [place] [address], HHKFBU49.7 fLNormal 80.0-100.0The [facility] LimaComment on above:Order Comment: No: Do not add to previous drawPerformed By: #### 27493 ####[facility] [facility] [place] [address], USAMETHODNormalThe [facility] Hospital LimaComment on above:Order Comment: No: Do not add to previous drawResult Comment: Automated differential performedNormal RBC MorphologyPerformed By: #### 50061 ####[facility] [place] [address], USAMONOS6.9 %Normal2-8The [facility] LimaComment on above:Order Comment: No: Do not add to previous draw Performed By: #### 76631 ####[facility] [id number], USANeutrophils/100 sgsuxfbhhj27.3 %Gmiyua22-80Lqs [facility] LimaComment on above:Order Comment: No: Do not add to previous drawPerformed By: #### 81795 ####[facility] [place] [address], USAPLAT WND951 Thou/js5Qqjzff968-090 The [facility] Hospital LimaComment on above:Order Comment: No: Do not add to previous drawPerformed By: #### 58018 ####[facility] [place] [address], [facility] CENTERWBC (Leukocytes)8.7 Thou/nt1Uxiyvw4.0-10.0The [facility] LimaComment on above: Order Comment: No: Do not add to previous drawPerformed By: #### 52860 ####[facility] [facility].[address] Operative Reporton [id number] ReportMR#: [id number] [facility] Lesli Clay Room #: [id number] Discharge Date: Birthdate: 1960 OPERATIVE REPORTDATE OF SURGERY: 09/08/2016SURGEON: Marline Blake M.D.SURGEON: Marline Blake M.D.ASSISTANTS:1. Marline Cano M.D.2. .PREOPERATIVE DIAGNOSIS: Right knee osteoarthritis.PROCEDURE: Right total knee arthroplasty.POSTOPERATIVE DIAGNOSIS: Right knee osteoarthritis.IMPLANTS: Biomet Vanguard PS open box size 65 mm femur. Size 71 posteriorstabilized tibial baseplate, 10 mm PS poly, 34 mm patellar poly.ANESTHESIA: General.BLOOD LOSS:Approximately 300 cc.DRAINS: None.SPECIMENS: None.PREOPERATIVE INDICATIONS: This is a 56-year-old female who had right kneeosteoarthritis, which was refractory to treatment with conservativemanagement. Options were discussed, the patient elected to proceed withright total knee arthroplasty, we feltthat she would benefit from thisprocedure.DESCRIPTION OF PROCEDURE: The patient was identified in the preoperativeholding area by 2 identifiable markers, informed consent was obtained, thepatient understood all risks and benefits of the procedure and likes toproceed. Operative site was marked by the operating surgeons. The patientwas brought back to the operating theater and intubated in the supin eposition. Nonsterile tourniquet was applied, antibiotics were given, thepatient's right leg was prepped and draped in the normal sterile fashion.Time-out was then done. The patient's leg was elevated and exsanguinatedto 300 mmHg.We then started by making our incision, which was approximately 10 cminlength centered over the medial aspect of the [...] placed our 5degree valgus distal femoral cutting gu hilton. The distal femoral cut wasmade. At this [...] anterior chamfer, and posterior chamfer cuts.After this wasdone, we then checked our flexion gap and felt that we arestable in both medially and laterally in f lexion. We then placed ourfemoral box cutting guide, and made our box cut without difficulty. Anni sized the tibia to about 71 mm. The placed our tibial guide, and madesure to externally rotate thetibia slightly, so in line withthe tibial tubercle. [...] then took trial out and placed our 10mm poly andlocking bar in place. Again, testing [...] the procedure wasavailable for questions throughout.Electronically Signed by:Marline Blake M.D. 09/13/2016 08:20 A Marline Blake M.D. I was present for the todd and critical portions and I was otherwiseimmediately available to fadia saab. Date Dict: 09/08/2016/08:19 P/Marline Cano M.D.Date Trans: 09/09/2016 04:17 A/deniseoDN_JN:[id number]: Rosales Taylor M.D. [address] [facility] [address]PdgqqfDgtClinton Memorial HospitalPO GLUCOSE LABon 83-16-5743Pihunbc mass muzc221 mg/dUYhqz20-998Lzh [facility] LimaComment on above:Performed By: #### 41379 ####[facility] [place] [address], USAGlucose mass xiss565 mg/dLHigh 70-100The [facility] LimaComment on above:Performed By: #### 20333 ####[facility] [place] [address], USAGlucose mass qtnf845 mg/wMOadk66-394Mtg [facility] LimaComment on above:Performed By: #### 81859 ####[facility] [place] [address], USAGlucose mass ettn782 mg/dLHigh 70-100The [facility] LimaComment on above:Performed By: #### 43327 ####[facility] [place] [address], USAGlucose mass gvov476 mg/fSPdzo01-732Jwy [facility] LimaComment on above:Performed By: #### 90599 ####[facility] [facility] [place] [address], USAPOC GLUCOSE LABon 09-08-2016 Glucose mass gsuj564 mg/oZUfew47-526Tyf [facility] Comment on above:Performed By: #### 16280 ####[facility] [place] [address].[place] [address], USAGlucose mass iwaj055 mg/dLHigh 70-100The [facility] LimaComment on above:Performed By: #### 23668 ####[facility] [place] [address].[place] [address], USAGlucose mass dcmb553 mg/pQVmgo88-705Vwi [facility] LimaComment on above:Performed By: #### 13680 ####[facility] [place] [address].[place] [address], USAPORTABLE KNEE RIGHT 2 VWSon [id number] KNEE RIGHT 2 VWSUniversMemorial Health SystemDepartment of Speoosvxr[address] [place] [id number] Patien t Name: LESLI CLAY : 1960ex: FAge: Race: WhiteMRN: [id number]. Location: OUTPPatient Status: OVisit #: [id number] Date: 09/08/2016 2:05:00 PMCompleted Date: 09/08/2016 02:45 PMRequesting Provider: MARLINE CANO Attending Provider: MARLINE BLAKE Report Copy To: Signs & S ymptoms: Pain ( specify Location)History: Patient history not availableComments: Hardware Evaluation, please do in PACUExam: PORTABLE KNEE RIGHT 2 VWSAccession #: [id number] PORTABLE KNEE RIGHT 2 VWS 09/08/2016 2:45 PM EDT SIGNS AND SYMPTOMS: Pain ( specify Location) TECHNOLOGIST COMMENTS: post op right knee QUESTION FOR THE RADIOLOGIST: Hardware Evaluation, please do in PACU PROTOCOL: AP(PA) and Lateral views were obtained. COMPARISON: December 13, 2014 FINDINGS: Soft tissues:Postoperative changes of swelling and air Bones:Postoperative change Joints:Right total knee arthroplasty with femoral component in slightly extendedorientation IMPRESSION: Status post right total knee arthroplasty Electronically signed by:Joshua Cormier. Transcribed by: [email or web address], User Resident: Electronically Signed by: JOSHUA CORMIRE @ 09/08/2016 02:48 PMNormalThe [facility] Hospital LimaComment on above:Order Comment: Hardware Evaluation, please do in PACUAPTTon 45-81-4376vSUI10.0 sNormal 25.0-35.0The [facility] LimaComment on above:Result Comment: ALL RESULTS MUST BE INTERPRETED WITH RESPECT TO BLOOD DRAWING ARTIFACTOR DILUTION ERROR OF ANTICOAGULANT AT THE TIME OF SAMPLING.THE APTT SHOULD NOT BE USED TO MONITOR UNFRACTIONATED HEPARIN THERAPY, THIS LABORATORY NO LONGER HAS AN ESTABLISHED THERAPEUTIC RANGE BASEDON THE APTT. IT IS RECOMMENDED THAT THE UFH - HEPARIN ASSAY (ANTI-XAACTIVITY) BE USED FOR THIS PURPOSE.Performed By: #### 59820, 32920 ####[facility] [facility] [place] [address], USABASIC METABOLIC PANELon 49-27-3734Wbypbug1.9 mg/dL Normal8.6-10.3The [facility] LimaComment on above:Performed By: #### 20365 ####[facility] [place] [address], MXARgppxbvy29 mmol/EEcx71-922Fya [facility] Comment on above:Performed By: #### 01926 ####[facility] [place] [address], YAXHF307 mmol/JBznrrb23-21Usl [facility] LimaComment on above:Performed By: #### 93847 ####[facility] [place] [address], [place] Creatinine0.94 mg/dLNormal0.60-1.20The [facility] Comment on above:Performed By: #### 72774 ####[facility] [place] [address], USAeGFR (black)mL/min/{1.73_m2}Normal >60The [facility] LimaComment on above:Performed By: #### 79125 ####[facility] [place] [address], USAeGFR (non-black)mL/min/{1.73_m2}Normal>60The [facility] LimaComment on above:Performed By: #### 40217 ####[facility] [place] [address], USAGlucose mass qmmp535 mg/dL Wwdv25-457Stk [facility] LimaComment on above:Performed By: #### 84893 ####[facility] [place] [address], USAPotassium molar conc4.0 mmol/LNormal3.5-5.1The [facility] LimaComment on above:Performed By: #### 72116 ####[facility] [place] [address], QMZLefwgb796 mmol/XGaj137-637 The [facility] LimaComment on above:Performed By: #### 89501 ####[facility] [place] [address], [place] Urea hkmuexsc50 mg/dLNormal7-25The [facility] LimaComment on above:Performed By: #### 54597 ####[facility] [facility] [place] [address], [facility] CENTERCBC W/DIFFon 25-88-3333Ggpzpykfm Auto #/vol (Bld)0.2 %Normal0.0-2.0The [facility] LimaComment on above: Performed By: #### 89981 ####[address] [place] [address], [facility] CENTEREosinophils/100 leukocytes1.6 %Normal0.0-5.0The [facility] LimaComment on above:Performed By: #### 03235 ####[address] [place] [address], [facility] Erythrocyte distribution width Auto Ratio (RBC)16.9 %Zshoab09.5-16.9The [facility] LimaComment on above:Performed By: #### 56760 ####[address] [place] [address], [facility] Erythrocytes (RBC)4.18 mill/tz4Vinfda3.50-5.50The [facility] LimaComment on above:Performed By: #### 23761 ####[address] [place] [address], [facility] CENTERHematocrit (HCT)38.2 %Normal 36.0-48.0The [facility] LimaComment on above:Performed By: #### 18199 ####[address] [place] [address], [facility] CENTERHemoglobin mass conc (Bld)12.5 g/bCXxxomo12.0-15.0The [facility] LimaComment on above:Performed By: #### 44284 ####[address] [place] [address], [facility] CENTERLymphocytes/100 prrzacxwts91.4 %Doaphv91.0-40.0The [facility] LimaComment on above:Performed By: #### 00369 ####[facility] [facility] [place] [address], ZMBNTO37.9 ynCinudr44.0-32.0The [facility] LimaComment on above:Performed By: #### 64529 ####[facility] [facility] [place] [address], [facility] [place] [place] CITYHC mass conc (RBC)32.7 g/rAXcrjte64.0-36.0The [facility] LimaComment on above:Performed By: #### 76818 ####[facility] [place] [address], CXRTQU52.4 gRIaixpy77.0-100.0The [facility] LimaComment on above:Performed By: #### 33199 ####[facility] [place] [address], [facility]ENTERMETHODNormalThOhioHealth Mansfield HospitalComment on above:Result Comment: Automated differential performedNormal RBC MorphologyPerformed By: #### 51462 ####[facility] [place] [address], [facility] MONOS5.2 %Normal2-8The [facility] LimaComment on above: Performed By: #### 88013 ####[facility] [place] [address], [facility] CENTERNeutrophils/100 zzvzhawvwk58.6 %Heir07-23Iuq [facility] LimaComment on above:Performed By: #### 22138 ####[facility] [place] [address], [facility] HEALTH CENTERPLAT RLT692 Thou/dz6Drnafk692-790Gkz [facility] LimaComment on above: Performed By: #### 71364 ####[facility] [place] [address], USAWBC (Leukocytes)12.0 Thou/rx7Ahhx5.0-10.0The [facility] LimaComment on above:Performed By: #### 77502 ####[place] [address] [address] StreetPROTHROMBIN TIME on 08-23-1759VDP Coag RelTime (PPP)0.97 {INR}Normal0.91-1.16The [facility] LimaComment on above:Result Comment: ACC RECOMMENDED INR FOR WARFARIN THERAPY CONDITION INRPROPHYLAXIS OF VENOUS THROMBOSIS 2-3(HIGH-RISK SURGERY)TREATMENT OF VENOUS THROMBOSIS 2-3TREATMENT OF PULMONARY EMBOLISM 2-3PREVENTION OF SYSTEMIC EMBOLISM: 2-3 ACUTE MYOCARDIAL INFARCTION TISSUE HEART VALVES VALVULAR HEART DISEASE ATRIAL FIBRILLATION RECURRENT SYSTEMIC EMBOLISMMECHANICAL HEART VALVE 2.5-3.5 FROM: ORAL ANTICOAGULANTS. MECHANISM OF ACTION, CLINICALEFFECTIVENESS, AND OPTIMAL THERAPEU TIC RANGE. [id number];108:231S-246S.Performed By: #### 89725, 19515 ####[facility] [facility].[address] Prothrombin time (PT) Coag time (PPP)12.9 uOhurae25.3-14.8The [facility] LimaComment on above:Result Comment: ALL RESULTS MUST BE INTERPRETED WITH RESPECT TO BLOOD DRAWING ARTIFACTOR DILUTION ERROR OF ANTICOAGULANT AT THE TIME OF SAMPLING.Performed By: #### 34171, [address] ####[place] [address], [place] TYPE AND SCREENon 30-96-0444KNN INTERPRETATIONONoUniversity Hospitals Samaritan Medical CenterComment on above:Performed By: #### 98997 ####[facility] [facility] [place] [address], [facility] CENTERANTIBODY SCREENNegative NormalThe [facility] LimaComment on above:Performed By: #### 49355 ####[facility] [place] [address], USARH INTERPRETATIONPositiveNormOhioHealth Marion General Hospitale [facility] Comment on above:Performed By: #### 88067 ####[facility] [facility] [place] [address], [facility] CENTERURINALYSISon 61-18-5057Sixjybmhv (total)NegativeNormalNEGATIVEThe [facility] LimaComment on above:Performed By: #### 96235 ####[facility] [place] [address], USABLOODMODERATEAbnormalNEGATIVEThe [facility] LimaComment on above:Performed By: #### 57419 ####[facility] [facility] [place] [address], USAEPISMODAbnormal FEWThe [facility] LimaComment on above:Performed By: #### 96665 ####[facility] [facility] [place] [place] [address], USAErythrocytes (RBC)1-2Awflhwoz1-9Wjl [facility] LimaComment on above:Performed By: #### 42413 ####[facility] [facility] [place] [address], USAGlucose mass concNegativeNormal NEGATIVEThe [facility] LimaComment on above:Performed By: #### 22465 ####[facility] [place] [address], USAKETONENegativeNormalNEGATIVEThe [facility] Comment on above:Performed By: #### 71515 ####[facility] [place] [address], USALEUK ESTERTRACEAbnormalNEGATIVEThe [facility] LimaComment on above:Performed By: #### 17812 ####[facility] [place] [address], [facility] pH of blood7.0 [pH]Normal5.0-8.0The [facility] LimaComment on above:Performed By: #### 71828 ####[facility] [place] [address], USAProteinNegativeNormalNEGATIVEThe [facility] LimaComment on above:Performed By: #### 00651 ####[facility] [place] [address], USASPEC GRAV1.006 Low1.015-1.020The [facility] LimaComment on above:Performed By: #### 06985 ####[facility] [place] [address], USAUrine, appearanceCLEARNormalCLEARThe [facility] LimaComment on above:Performed By: #### 42332 ####[facility] [place] [address], USAUrine, bacteria in sedimentMANY AbnormalNONE SEENThe [facility] LimaComment on above: Performed By: #### 45278 ####[facility] [place] [address], USAUrine, colorSTRAWAbnormalYELLOWThe [facility] LimaComment on above:Performed By: #### 34513 ####[facility] [place] [address], USAUrine, nitrite presenceNegativeNormalNEGATIVEThe [facility] LimaComment on above:Performed By: #### 37174 ####[facility] [place] [address], [facility] [place] LD97-52Pysfllfj3-0Yrx [facility] LimaComment on above:Performed By: #### 73418 ####[facility] [place] [address], [facility] Vital Signs Date TimeVital SignValuePerforming ZuxecaoreLsgpekms49-07-2820 15:59-0400Body mass index (BMI) [Ratio]50.66 kg/k8Vktrneh Kohler MEDICAL ANTHROPOLOGY DIRECTOR Work Phone: [phone]10-06-2025 15:59-0400Body temperature 97.3 [degF]Pastora Kohler MEDICAL ANTHROPOLOGY DIRECTOR Work Phone: [phone] [place], [place] 4793010-06-2025 15:59-0400Body xavysp427.73 kgChristy Kohler MEDICAL ANTHROPOLOGY DIRECTOR Work Phone: [phone] [place], [place] 4793010-06-2025 15:59-0400Diastolic blood ehyvounh38 mm[Hg]Pastora Kohler MEDICAL ANTHROPOLOGY DIRECTOR Work Phone: [phone] [place], [place] 4793010-06-2025 15:59-0400Heart rate86 /min Pastora Kohler MEDICAL ANTHROPOLOGY DIRECTOR Work Phone: [phone] [place], [place] 4793010-06-2025 15:59-9506SbG9% (BldA) [Mass fraction]99 %Pastora Kohler MEDICAL ANTHROPOLOGY DIRECTOR Work Phone: [phone] [place], [place] 4793010-06-2025 15:59-0400Systolic blood wbhaiuqo602 mm[Hg]Pastora Kohler MEDICAL ANTHROPOLOGY DIRECTOR Work Phone: [phone] [place], [place] 4793010-03-2025 10:54-0400Body .02 cmChristsanket Kohler MEDICAL ANTHROPOLOGY DIRECTOR-C Work Phone: [facility]10-03-2025 10:54-0400 Body mass index (BMI) [Ratio]51.1 kg/c2Bgmnxgu Kohler MEDICAL ANTHROPOLOGY DIRECTOR-C Work Phone: [phone]10-03-2025 10:54-0400 Body kgChristy Kohler MEDICAL ANTHROPOLOGY DIRECTOR-C Work Phone: [phone] [place], [place] [address]2010-03-2025 10:54-0400 Diastolic blood rveipkbl11 mm[Hg]Pastora Kohler MEDICAL ANTHROPOLOGY DIRECTOR-C Work Phone: [phone] [place], [place] [address]132010-03-2025 10:54-0400 Heart rate74 /minChristy Kohler MEDICAL ANTHROPOLOGY DIRECTOR-C Work Phone: [phone] [place], [place] [address]132010-03-2025 10:54-0400 Respiratory rate18 /minChristy Kohler MEDICAL ANTHROPOLOGY DIRECTOR-C Work Phone: [phone] [place], [place] [address]132010-03-2025 10:54-0400 SaO2% (BldA) [Mass fraction]96 %Pastora Kohler MEDICAL ANTHROPOLOGY DIRECTOR-C Work Phone: [phone] [place], [place] [address]132010-03-2025 10:54-0400 Systolic blood dpjokaht256 mm[Hg]Pastora Kohler MEDICAL ANTHROPOLOGY DIRECTOR-C Work Phone: [phone] [place], [place] [address]132010-02-2025 10:49-0400 Body jfolqn827 cmJennifer Cabrera MD Work Phone: [phone] [place], [place] 4793010-02-2025 10:49-0400Body mass index (BMI) [Ratio]52.08 kg/k4IsylegjwJennifer Cabrera MD Work Phone: [phone]10-02-2025 10:49-0400Body temperature 98.6 [degF]Jennifer Cabrera MD Work Phone: [phone] [place], [place] 4793010-02-2025 10:49-0400Body ndkikr553.36 kgJennifer Cabrera MD Work Phone: [phone] [place], [place] 4793010-02-2025 10:49-0400Diastolic blood mm[Hg]Jennifer Cabrera MD Work Phone: [phone] HospitalWasuljpqvk41-72-5811 10:49-0400Heart rate82 /min Jennifer Cabrera MD Work Phone: [phone] HospitalOwwdrepizg31-67-4034 10:49-9313TsI9% (BldA) [Mass fraction]94 %Jennifer Cabrera MD Work Phone: [phone] HospitalFcvbztplbi46-14-5985 10:49-0400Systolic blood otuxeoqd873 mm[Hg]Jennifer Cabrera MD Work Phone: [phone]08-08-2025 15:25-0400Body mass index (BMI) [Ratio]50.84 kg/z4Adbat Jaguar MEDICAL ANTHROPOLOGY DIRECTOR Work Phone: [phone] [place], [place] [address]Bxtrftjrti79-56-5096 15:25-0400Body .18 kgSadayami Hernandezjb MEDICAL ANTHROPOLOGY DIRECTOR Work Phone: [phone] [place], [place] [address]Ppwqmjrekn94-81-5090 15:25-0400Diastolic blood otrqjtdg72 mm[Hg]Gabe Hernandezjb MEDICAL ANTHROPOLOGY DIRECTOR Work Phone: [phone] [place], [place] [address]Qyqvdjsudq94-76-7175 15:25-0400Heart rate87 /min Gabe Hernandezjb MEDICAL ANTHROPOLOGY DIRECTOR Work Phone: [phone] [place], [place] [address]Ubugjpsqxy56-62-7275 15:25-9205PpQ6% (BldA) [Mass fraction]95 %Gabe Hernandezjb MEDICAL ANTHROPOLOGY DIRECTOR Work Phone: [phone] [place], [place] [address]Vfynrddjxk85-74-4981 15:25-0400Systolic blood proxyqye247 mm[Hg]Gabe Hernandezjb MEDICAL ANTHROPOLOGY DIRECTOR Work Phone: [phone] [place], [place] [address]Waavpqczpn81-93-5832 14:08-0400Body cm Gabe Hernandezjb MEDICAL ANTHROPOLOGY DIRECTOR Work Phone: [phone] [place], [place] [address]Kvvgxivxty74-49-8373 14:08-0400Body mass index (BMI) [Ratio]51.02 kg/w2Grkoo Jaguar MEDICAL ANTHROPOLOGY DIRECTOR Work Phone: [phone] HospitalKzuavgrbsk21-24-9430 14:08-0400Body .64 kgSadayami Jaguar MEDICAL ANTHROPOLOGY DIRECTOR Work Phone: [facility] [id number] 14:08-0400Diastolic blood mm[Hg]Gabe Trujillo MEDICAL ANTHROPOLOGY DIRECTOR Work Phone: [phone] HospitalFmghkcaoha72-44-1368 14:08-0400Heart rate78 /min Gabe Trujillo MEDICAL ANTHROPOLOGY DIRECTOR Work Phone: [phone] HospitalZpdpfuyfcc49-63-1073 14:08-0400Respiratory rate18 /minSlouis Trujillo MEDICAL ANTHROPOLOGY DIRECTOR Work Phone: 1(387)075-[address] [place], [place] [address]Brrfvuunwq96-31-7461 14:08-5574CwQ7% (BldA) [Mass fraction]98 %Gabe Trujillo MEDICAL ANTHROPOLOGY DIRECTOR Work Phone: [phone] HospitalCsrtasjbjg96-01-7641 14:08-0400Systolic blood fizknmff671 mm[Hg]Gabe Trujillo MEDICAL ANTHROPOLOGY DIRECTOR Work Phone: 1(830)819-[address] [place], [place] [address]Fienatkeig20-06-5874 12:31-0400Body mass index (BMI) [Ratio]50.95 kg/z3YgugzGabe Trujillo MEDICAL ANTHROPOLOGY DIRECTOR Work Phone: [phone] [address]Zrdpgbvpzq84-58-4712 12:31-0400Body temperature 97.3 [degF]Gabe Trujillo MEDICAL ANTHROPOLOGY DIRECTOR Work Phone: 1(853)611-[address] [place] [address]-15-2025 12:31-0400Body xhqcek164.46 kgGabe Trujillo MEDICAL ANTHROPOLOGY DIRECTOR Work Phone: [phone] [address]Fwdmnznuer47-19-7061 12:31-0400Diastolic blood udglkduv87 mm[Hg]Gabe Trujillo MEDICAL ANTHROPOLOGY DIRECTOR Work Phone: [phone] [address]Mgqzeyzsbd35-78-7217 12:31-0400Heart rate84 /min Gabe Trujillo MEDICAL ANTHROPOLOGY DIRECTOR Work Phone: [phone])172-48[place] [address]Bjxfvweyfs70-92-6607 12:31-7699VzR4% (BldA) [Mass fraction]94 %Gabe Trujillo MEDICAL ANTHROPOLOGY DIRECTOR Work Phone: [phone] [address]Hwmtdywhck92-38-4152 12:31-0400Systolic blood muxcqsbe630 mm[Hg]Gabe Trujillo MEDICAL ANTHROPOLOGY DIRECTOR Work Phone: [phone] HospitalRnguxqznhy23-74-5370 09:04-0400Body mass index (BMI) [Ratio]51.37 kg/d7FybmzxpPastora Kohler MEDICAL ANTHROPOLOGY DIRECTOR Work Phone: 1(252)598-[address] [place], [place] [address]Nvlzjmctaa46-95-4889 09:04-0400Body temperature 97.3 [degF]Pastora Kohler MEDICAL ANTHROPOLOGY DIRECTOR Work Phone: 1(125)[facility] [place], [place] [address]Avlvfbwbfv81-61-8643 09:04-0400Body vjqecz851.54 kgChrisanaya Kohler MEDICAL ANTHROPOLOGY DIRECTOR Work Phone: [phone])[address] [place], [place] 4793006-17-2025 09:04-0400Diastolic blood kxdlkbwi88 mm[Hg]Pastora Ackermank MEDICAL ANTHROPOLOGY DIRECTOR Work Phone: 1(549)474-[address] [place], [place] [address]Uvlobxryin68-99-8174 09:04-0400Systolic blood pltfoxvf055 mm[Hg]Pastora Ackermank MEDICAL ANTHROPOLOGY DIRECTOR Work Phone: 1(408)[address] [place], [place] 4793004-29-2025 10:35-0400Diastolic blood jdpuxwlp49 mm[Hg]Jennifer Cabrera MD Work Phone: [phone] [place], [place] [address]Ennuaukzjp64-94-4152 10:35-0400Systolic blood hltvkpie193 mm[Hg]Jennifer Cabrera MD Work Phone: 1(644)[facility] [place], [place] [address]Acwwywisgb28-38-3903 09:51-0400Body lrcleu037 cm Jennifer Cabrera MD Work Phone: 1(301)[facility] [place] [address]-29-2025 09:51-0400Body mass index (BMI) [Ratio]51.26 kg/i7XelzhawiJennifer Cabrera MD Work Phone: 1(483)918-[address] [place] [address]-29-2025 09:51-0400Body .27 kgJennifer Cabrera MD Work Phone: 1(220)[facility] [place] [address]-29-2025 09:51-0400Heart rate91 /min Jennifer Cabrera MD Work Phone: 1(490)[facility] [place] [address]-29-2025 09:51-8915IcX1% (BldA) [Mass fraction]94 %Jennifer Cabrera MD Work Phone: [facility] HospitalHkevcecqvo30-55-2003 11:30-0400Body mass index (BMI) [Ratio]49.81 kg/d3KylysGabe Hernandezclaudiafrankie MEDICAL ANTHROPOLOGY DIRECTOR Work Phone: [facility] HospitalWnzxtegunl61-28-8872 11:30-0400Body temperature 98.1 [degF]Gabe Trujillo MEDICAL ANTHROPOLOGY DIRECTOR Work Phone: [facility] HospitalEnmmeqhzce48-76-1959 11:30-0400Body rhsurm938.55 kgGabe Trujillo MEDICAL ANTHROPOLOGY DIRECTOR Work Phone: [facility] HospitalBhvdfxbpzp75-04-5492 11:30-0400Diastolic blood uwfnhqox24 mm[Hg]Gabe Trujillo MEDICAL ANTHROPOLOGY DIRECTOR Work Phone: [facility] HospitalCgdscdwlqn56-59-8441 11:30-0400Heart rate85 /min Gabe Trujillo MEDICAL ANTHROPOLOGY DIRECTOR Work Phone: [facility] HospitalSrjrjqemnn02-61-5414 11:30-0659OsA7% (BldA) [Mass fraction]97 %Gabe Trujillo MEDICAL ANTHROPOLOGY DIRECTOR Work Phone: [facility] HospitalCmwqrcqyuz87-83-0300 11:30-0400Systolic blood owjtxtwk560 mm[Hg]Gabe Trujillo MEDICAL ANTHROPOLOGY DIRECTOR Work Phone: [facility] HospitalFskjnlqwyc98-24-2716 14:38-0400Body uugaod446 cm Lauren HILL Work Phone: [facility] HospitalJfdcmkcbnw92-04-2293 14:38-0400Body mass index (BMI) [Ratio]51.19 kg/l0Zbbpolvcarmen HILL Work Phone: [facility] HospitalDyrsotrpor11-14-6076 14:38-0400Body qrkepy787.09 kgMattcarmen Torres PA Work Phone: [facility] HospitalXiomkpgzyg68-35-8872 09:57-0400Body .02 Osvaldo Kohler MEDICAL ANTHROPOLOGY DIRECTOR-C Work Phone: [facility]04-09-2025 09:57-0400 Body mass index (BMI) [Ratio]51.1 kg/t9Wxmakkf Kohler MEDICAL ANTHROPOLOGY DIRECTOR-C Work Phone: 1(821)557-[address] [place], [place] [address]404-09-2025 09:57-0400 Body tdoiro060.9 kgChristy Kohler MEDICAL ANTHROPOLOGY DIRECTOR-C Work Phone: 1(871)[address]04-09-2025 09:57-0400 Diastolic blood arhvazdn44 mm[Hg]Pastora Kohler MEDICAL ANTHROPOLOGY DIRECTOR-C Work Phone: 1(488)[address]04-09-2025 09:57-0400 Heart rate78 /minChristy Kohler MEDICAL ANTHROPOLOGY DIRECTOR-C Work Phone: 1(722)[address] [place], [place] [address]-09-2025 09:57-0400 Respiratory rate20 /minChristy Kohler MEDICAL ANTHROPOLOGY DIRECTOR-C Work Phone: 1(473)[address]04-09-2025 09:57-0400 SaO2% (BldA) [Mass fraction]98 %Pastora Kohler MEDICAL ANTHROPOLOGY DIRECTOR-C Work Phone: 1(906)[address]04-09-2025 09:57-0400 Systolic blood jltmayte208 mm[Hg]Pastora Kohler MEDICAL ANTHROPOLOGY DIRECTOR-C Work Phone: 1(558)[address]04-07-2025 13:38-0400 Body .5 cmSteven Rusher DPM Work Phone: 1(491)[address]04-07-2025 13:38-0400Body mass index (BMI) [Ratio]53.04 kg/a1Bmpiej Rusher DPM Work Phone: 1(739)[address]04-07-2025 13:38-0400Body sdjuyi583.54 kgSteven Rusher DPM Work Phone: [phone]07[facility] HospitalCzusdyvlsc17-29-3818 10:47-0500Body mass index (BMI) [Ratio]54.5 kg/c6MnxmqutcAlexandra Osorio MEDICAL ANTHROPOLOGY DIRECTOR Work Phone: [phone] HospitalIarggbbwoo20-82-9928 10:47-0500Body temperature 96.21 [degF]Alexandra Osorio MEDICAL ANTHROPOLOGY DIRECTOR Work Phone: 1(799)418-[address] [place], [place] [address]Lioksimabz21-22-8458 10:47-0500Body eqpdst260.17 kgAlexandra Osorio MEDICAL ANTHROPOLOGY DIRECTOR Work Phone: 1(239)804-[address] [place], [place] [address]Scwjkblklx79-25-5252 10:47-0500Diastolic blood ilopyhol81 mm[Hg]Alexandra Osorio MEDICAL ANTHROPOLOGY DIRECTOR Work Phone: 1(820)888-[address] [place], [place] [address]Pvzdwocgqw50-32-9285 10:47-0500Heart rate82 /min Alexandra Osorio MEDICAL ANTHROPOLOGY DIRECTOR Work Phone: 1(980)[facility] [place], [place] [address]Gexfipjhai42-49-2293 10:47-0587EoS8% (BldA) [Mass fraction]92 %Alexandra Osorio MEDICAL ANTHROPOLOGY DIRECTOR Work Phone: 1(383)457-[address] [place], [place] [address]Zmtjappmig44-68-9556 10:47-0500Systolic blood eozubhtl208 mm[Hg]Alexandra Osorio MEDICAL ANTHROPOLOGY DIRECTOR Work Phone: 1(375)821-[address] [place], [place] [address]Hqvueuplnz26-40-5886 08:53-0500Body .5 cmPatrickassie Osorio MEDICAL ANTHROPOLOGY DIRECTOR Work Phone: 1(495)[facility] [place], [place] [address]Nkepfcbgec17-71-7607 08:53-0500Body mass index (BMI) [Ratio]52.13 kg/i7RhvbbcvgAlexandra Osorio MEDICAL ANTHROPOLOGY DIRECTOR Work Phone: 1(639)[facility] [place], [place] [address]Fcbkpvhdbn42-42-4628 08:53-0500Body .28 kgAlexandra Osorio MEDICAL ANTHROPOLOGY DIRECTOR Work Phone: 1(960)[facility] [address]Plcrxdmpqt73-33-4341 08:53-0500Diastolic blood cmsepnwl64 mm[Hg]Alexandra Osorio MEDICAL ANTHROPOLOGY DIRECTOR Work Phone: 1(600)[facility] [place] [address]-18-2025 08:53-0500Heart rate94 /min Alexandra Scottgallitoginger MEDICAL ANTHROPOLOGY DIRECTOR Work Phone: 1([phone] [address]Idtovbjyfg02-70-4583 08:53-0500Respiratory rate18 /minPaisrael Scottvijaya MEDICAL ANTHROPOLOGY DIRECTOR Work Phone: [facility] HospitalIdzsgrdbal56-30-4258 08:53-8058EzT7% (BldA) [Mass fraction]94 %Alexandra Osorio MEDICAL ANTHROPOLOGY DIRECTOR Work Phone: [phone] HospitalIikltrlcav11-03-1086 08:53-0500Systolic blood rbflmosp664 mm[Hg]Alexandra Osorio MEDICAL ANTHROPOLOGY DIRECTOR Work Phone: 1([phone] HospitalWvbwrtvggl37-66-2054 16:22-0500Body yolbun115.5 cmPatricia Yoly MEDICAL ANTHROPOLOGY DIRECTOR Work Phone: 1(318)914-[address] [place], [place] [address]Qfadymznoa28-28-2570 16:22-0500Body mass index (BMI) [Ratio]52.49 kg/h0Wstamimkisrael Osorio MEDICAL ANTHROPOLOGY DIRECTOR Work Phone: 1(142)[address] [place], [place] [address]Hdublqlcdp25-85-9772 16:22-0500Body xtywyx592.18 kgPaisrael Osorio MEDICAL ANTHROPOLOGY DIRECTOR Work Phone: 1(302)602-[address] [place], [place] [address]Swhohewdcy88-83-1038 16:22-0500Diastolic blood fkicqncd03 mm[Hg]Alexandra Osorio MEDICAL ANTHROPOLOGY DIRECTOR Work Phone: 1([phone] HospitalVrgrnpkoem85-17-6788 16:22-0500Heart rate78 /min Alexandra Osorio MEDICAL ANTHROPOLOGY DIRECTOR Work Phone: 1(021)041-84[facility] HospitalWwjmtpucnr08-77-7489 16:22-0500Respiratory rate18 /minAlexandra Osorio MEDICAL ANTHROPOLOGY DIRECTOR Work Phone: 1(074)707-[address] [place], [place] [address]Lcdjrisixp37-23-5049 16:22-7453HfJ5% (BldA) [Mass fraction]95 %Alexandra Osorio MEDICAL ANTHROPOLOGY DIRECTOR Work Phone: 1(758)[phone] HospitalTqqvlbyxyt63-08-1263 16:22-0500Systolic blood ppxuntbc909 mm[Hg]Alexandra Osorio MEDICAL ANTHROPOLOGY DIRECTOR Work Phone: 1(260)963-[address] [place], [place] [address]Dtesndtaew58-83-6170 11:23-0500Body cvpumg784.5 Hunterhristsanket Kohler MEDICAL ANTHROPOLOGY DIRECTOR Work Phone: 1(557)252-[address] [place], [place] [address]Gipppwqyzy82-32-1223 11:23-0500Body mass index (BMI) [Ratio]51.18 kg/y0Ypdtgeckia Kohler MEDICAL ANTHROPOLOGY DIRECTOR Work Phone: 1(234)624-[address] [place], [place] [address]Fqfmuabrlr96-15-9777 11:23-0500Body temperature 97.81 [degF]Pastora Kohler MEDICAL ANTHROPOLOGY DIRECTOR Work Phone: 1(849)[facility] [place], [place] [address]Zykwuzlcxe64-21-2606 11:23-0500Body .92 kgChkia Kohler MEDICAL ANTHROPOLOGY DIRECTOR Work Phone: 1(614)[address] [place], [place] [address]3012-03-2024 11:23-0500Diastolic blood guszeikm35 mm[Hg]Pastora Kohler MEDICAL ANTHROPOLOGY DIRECTOR Work Phone: 1(430)[address]12-03-2024 11:23-0500Heart gynj261 /min Pastora Kohler MEDICAL ANTHROPOLOGY DIRECTOR Work Phone: 1(739)[address] [place], [place] [address]012-03-2024 11:23-5483BwH3% (BldA) [Mass fraction]97 %Pastora Kohler MEDICAL ANTHROPOLOGY DIRECTOR Work Phone: 1(622)075-[address] [place], [place] [address]Ralbcbeazm36-25-0151 11:23-0500Systolic blood xddpnuwf237 mm[Hg]Pastora Kohler MEDICAL ANTHROPOLOGY DIRECTOR Work Phone: 1(896)276-[address] [place], [place] [address]Kwxjldcbsp93-14-1688 09:56-0500Body mass index (BMI) [Ratio]50.5 kg/d9KvbqucvjaScci Hospital [facility]11-13-2024 09:56-0500 Diastolic blood aghfbqmc37 mm[Hg][facility]11-13-2024 09:56-0500Heart rate86 /[facility]11-13-2024 09:56-0500Respiratory rate18 /[facility]11-13-2024 09:56-4477QiS3% (BldA) [Mass fraction]100 %[facility] 12-30-2023 09:56-0500Systolic blood ptonmbei617 mm[Hg][facility]11-13-2024 09:45-0500Body wfixjo089.02 cmScci Hospital [facility]11-13-2024 09:45-0500Body luhexq613.35 kgS[facility] Hospital [facility] 09-23-2023 14:28-0400Body tsqrne991.02 cmS[facility] 09-23-2023 14:28-0400Body mass index (BMI) [Ratio]48.6 kg/p7LsqjvnckmScci Hospital [facility]08-07-2024 14:28-0400Body luydty905.51 kgS[facility]08-07-2024 14:28-0400Diastolic blood loaynyjc85 mm[Hg][facility]08-07-2024 14:28-0400Heart rate82 /[facility]08-07-2024 14:28-0400Respiratory rate20 /[facility]08-07-2024 14:28-9410CqB8% (BldA) [Mass fraction]95 %[facility]08-07-2024 14:28-0400Systolic blood mzhvaqdh986 mm[Hg] [facility]05-14-2024 14:45-0400Diastolic blood caknvofd01 mm[Hg]Piotr Logan MD Work Phone: [employer] [facility] QFYLPF39-90-7106 14:45-0400Heart rate78 /Park Logan MD Work Phone: [employer] [facility] OUMMWK47-62-7382 14:45-0400 Respiratory rate16 /Park Logan MD Work Phone: [employer] [facility]ENTERUFYFKS91-73-4917 14:45-4348SoQ1% (BldA) [Mass fraction]97 %Piotr Logan MD Work Phone: [employer] [facility] TKZNFW22-89-0243 14:45-0400Systolic blood mm[Hg]Piotr Logan MD Work Phone: [employer] [facility] DQUNEO25-80-1570 12:35-0400Body dbjzvljeoag75.21 [degF]Piotr Logan MD Work Phone: [employer] [facility]ENTERXQGSDX13-96-8080 11:05-0400Body ahxahs018.5 cmPiotr Logan MD Work Phone: [facility]05-14-2024 11:05-0400Body mass index (BMI) [Ratio]52.61 kg/h5MxmlzltsecgmPiotr Logan MD Work Phone: [facility]05-14-2024 11:05-0400Body dforob573.5 kgPiotr Logan MD Work Phone: [facility]04-17-2024 10:04-0400Body hoorkp710 Aaron Moreno MD Work Phone: [phone]04-17-2024 10:04-0400Body mass index (BMI) [Ratio]50.38 kg/m2Edwin Moreno MD Work Phone: [phone]04-17-2024 10:04-0400Body qsnkvnqbimj91.59 [degF]Edwin Moreno MD Work Phone: 1([phone]04-17-2024 10:04-0400Body xhczyw760 kgEdwin Moreno MD Work Phone: 1([phone])012-32[facility]04-17-2024 10:04-0400Diastolic blood ztgbpalv06 mm[Hg]Edwin Moreno MD Work Phone: [facility]04-17-2024 10:04-0400Heart rate 90 /minEdwin Moreno MD Work Phone: [phone]04-17-2024 10:04-6065RvQ1% (BldA) [Mass fraction]97 %Edwin Moreno MD Work Phone: [facility]04-17-2024 10:04-0400Systolic blood zlhhifmf105 mm[Hg]Edwin Moreno MD Work Phone: [facility]03-25-2024 11:54-0400Body kdqesz324.02 cmS[facility]03-25-2024 11:54-0400Body mass index (BMI) [Ratio]51.5 kg/e0XlzqbxbenScci Hospital [facility]ima03-25-2024 11:54-0400Body .05 kgS[facility]03-25-2024 11:54-0400Diastolic blood mm[Hg][facility] 05-11-2023 11:54-0400Heart rate74 /[facility] 05-11-2023 11:54-0400Respiratory rate20 /[facility] 05-11-2023 11:54-3568DoK8% (BldA) [Mass fraction]98 %[facility]03-25-2024 11:54-0400Systolic blood yckliaqc987 mm[Hg][facility]02-20-2024 09:09-0500Body uockvv578.02 cmDO Kalie Rumschlag Work Phone: 1([phone]02-20-2024 09:09-0500 Body mass index (BMI) [Ratio]52.6 kg/m2DO Kalie Rumschlag Work Phone: 1(913)794-[address] [place], [place] 9540402-20-2024 09:09-0500 Body rdebbw375.83 kgDO Kalie Rumschlag Work Phone: 1(970)232-[address] [place], [place] 9540402-20-2024 09:09-0500 Diastolic blood mm[Hg]DO Kalie Rumschlag Work Phone: 1(036)982-[address] [place], [place] 9540402-20-2024 09:09-0500 Heart rate80 /minDO Kalie Rumschlag Work Phone: 1(077)064-[address] [place], [place] 9540402-20-2024 09:09-0500 Respiratory rate20 /minDO Kalie Rumschlag Work Phone: 1(887)[address]02-20-2024 09:09-0500 SaO2% (BldA) [Mass fraction]93 %DO Kalie Rumschlag Work Phone: 1(793)410-[address] [place], [place] 9540402-20-2024 09:09-0500 Systolic blood hebtxhkb715 mm[Hg]DO Kalie Oruggaschlag Work Phone: [facility]12-19-2023 08:45-0500 Body strlim397.02 cmDenazario Alegrialy Other [facility]12-19-2023 08:45-0500 Body mass index (BMI) [Ratio]52.61 kg/m0Qlvjdfn [employer] Other [employer] Other 12-19-2023 08:45-0500Body ieeghq689.72 kgDenazario Alegrialy Other [employer] Other 12-19-2023 08:45-0500Body ymeage007.71 kgDO DnevnikschlaInstant [employer] Work Phone: [facility]12-19-2023 08:45-0500 Diastolic blood pressureDeborah Airamly Other [employer] Other 12-19-2023 08:45-0500Respiratory rate20 /minDeborah Scally Other [employer] Other 12-19-2023 08:45-7928BiL1% (BldA) [Mass fraction]94 % Lili Scally Other [employer] Other 12-19-2023 08:45-0500Systolic blood yjbelrgi542 mm[Hg] Lili Scally Other [employer] Other 10-11-2023 09:45-0400Body hohlnz108.02 cmDeborah Scally Other [employer] Other 10-11-2023 09:45-0400Body mass index (BMI) [Ratio] 51.37 kg/p3Xvuykognazario Burgos Other [employer] Other 10-11-2023 09:45-0400Body .54 kgDenazario Burgos Other [employer] Other 10-11-2023 09:45-0400Diastolic blood pressureDenazario Burgos Other [employer] Other 10-11-2023 09:45-0400Respiratory rate20 /minDeborah Airamly Other [place] Other 10-11-2023 09:45-0513JeR1% (BldA) [Mass fraction]96 % Lili Burgos Other [employer] Other 10-11-2023 09:45-0400Systolic blood qehijnpg620 mm[Hg] Lili Burgos Other [employer] Other 10-10-2023 09:20-0400Body rerqxt809.02 cmDadusty Turner Other [employer] Other 10-10-2023 09:20-0400Body mass index (BMI) [Ratio] 52.07 kg/m2Dadusty Turner Other [employer] Other 10-10-2023 09:20-0400Body khpxze106.36 kgDadusty Turner Other [employer] Other 09-14-2023 11:18-0400Diastolic blood yzsswwob97 mm[Hg] DO Judith Patel Work Phone: [facility]09-14-2023 11:18-0400 Heart rate94 /minDO Judith Amanda Work Phone: [phone]09-14-2023 11:18-0400 Respiratory rate18 /minDO Judith Amanda Work Phone: 1(890)[address]09-14-2023 11:18-0400 SaO2% (BldA) [Mass fraction]96 %DO Judith Amanda Work Phone: 1(299)820-[address] [place], [place] 6710409-14-2023 11:18-0400 Systolic blood mm[Hg]DO Judith Amanda Work Phone: 1(736)[address]09-14-2023 09:52-0400 Body ynfgug215.02 cmDO Judith Amanda Work Phone: 1(159)[address]09-14-2023 09:52-0400 Body jueevu582.55 kgDO Judith Amanda Work Phone: 1([phone])[address]08-24-2023 10:40-0400 Body .02 cmMartine Tobias Other [employer] Other Phone: [phone] 10:40-0400Body mass index (BMI) [Ratio] 52.07 kg/j9RoqbnntMartine Tobias Other [employer] Other Phone: [phone] 10:40-0400Body .36 kgMartine Tobias Other [employer] Other Phone: [phone] 10:40-0400Diastolic blood peimfgpq49 mm[Hg] Martine Tobias Other [employer] Other Phone: [phone] 10:40-0400Systolic blood conqhixk002 mm[Hg] Martine Tobias Other [phone] Other 08-18-2023 09:15-0400Body vffiss679.02 cmDenazario Burgos Other [employer] Other 08-18-2023 09:15-0400Body mass index (BMI) [Ratio] 52.09 kg/d2Ojvurjznazario Burgos Other [employer] Other 08-18-2023 09:15-0400Body qlgtov430.4 kgDenazario Burgos Other [employer] Other 08-18-2023 09:15-0400Diastolic blood mrzcvoul38 mm[Hg] Lili Airamly Other [employer] Other 08-18-2023 09:15-0400Respiratory rate20 /minDeborah Scally Other [employer] Other 08-18-2023 09:15-0631GlJ7% (BldA) [Mass fraction]65 % Lili Airamly Other [employer] Other 08-18-2023 09:15-0400Systolic blood qryadrht857 mm[Hg] Lili Scally Other [employer] Other 08-04-2023 13:49-0400Diastolic blood ebvfaqsi209 mm[Hg]DO Kalie Rumschlag Work Phone: [facility]08-04-2023 13:49-0400 Heart rate94 /minDO Kalie Rumschlag Work Phone: [facility]08-04-2023 13:49-0400 Respiratory rate20 /minDO Kalie Rumschlag Work Phone: [facility]08-04-2023 13:49-0400 SaO2% (BldA) [Mass fraction]96 %DO Kalie Rumschlag Work Phone: [facility]08-04-2023 13:49-0400 Systolic blood sefjjspp286 mm[Hg]DO Kalie Rumschlag Work Phone: [facility]08-04-2023 13:42-0400 Body veywqe388.56 cmDO Kalie Rumschlag Work Phone: [facility]08-04-2023 13:42-0400 Body whkegu933.73 kgDO Kalie Rumschlag Work Phone: [facility]06-27-2023 09:40-0400 Body bpvqyb516.02 cmMartine [employer]CH Other [employer] Other 06-27-2023 09:40-0400Body mass index (BMI) [Ratio] 50.62 kg/e0[place] [employer] Other [employer] Other Phone: [phone] 09:40-0400Body zabusw710.64 kgMartine [employer]CH Other [employer] Other 06-27-2023 09:40-0400Diastolic blood ryxqxwpl70 mm[Hg] Martine [employer]CH Other [employer] Other 06-27-2023 09:40-0400Systolic blood rwmhlyht100 mm[Hg] Martine [employer]CH Other [employer] Other 06-16-2023 09:15-0400Body lrojgx453.02 cmGabriel Aubrey Other [employer] Other 06-16-2023 09:15-0400Body mass index (BMI) [Ratio] 50.62 kg/d0Erqruve Scally Other [employer] Other 06-16-2023 09:15-0400Body olhyjp793.64 kgDeborah Scally Other [employer] Other 06-16-2023 09:15-0400Diastolic blood arleihig69 mm[Hg] Lili Scally Other [employer] Other 06-16-2023 09:15-0400Respiratory rate18 /minDeborah Scally Other [employer] Other 06-16-2023 09:15-3616AnI3% (BldA) [Mass fraction]95 % Lili Scally Other [facility] Other 06-16-2023 09:15-0400Systolic blood mm[Hg] Lili Scally Other [facility] Other 04-21-2023 10:45-0400Body nlojuw019.02 cmDeborah Scally Other [facility] Other 04-21-2023 10:45-0400Body mass index (BMI) [Ratio] 50.43 kg/w1Kdvmhdu Scally Other [facility] Other 04-21-2023 10:45-0400Body dwijjj047.14 kgDeborah Scally Other [facility] Other 04-21-2023 10:45-0400Diastolic blood haxwknpz36 mm[Hg] Lili Scally Other [facility] Other 04-21-2023 10:45-0400Respiratory rate18 /minDeborah Scally Other [facility] Other 04-21-2023 10:45-8119XnO0% (BldA) [Mass fraction]96 % Lili Scally Other [facility] Other 04-21-2023 10:45-0400Systolic blood baifrkwp600 mm[Hg] Llii Scally Other [facility] Other 01-19-2023 14:45-0500Body cqatyp303.02 cmDeborah Scally Other [facility] Other 01-19-2023 14:45-0500Body mass index (BMI) [Ratio] 46.81 kg/f1Sldlzte Scally Other [facility] Other 01-19-2023 14:45-0500Body wicips439.89 kgDeborah Scally Other [facility] Other 01-19-2023 14:45-0500Diastolic blood onodxcis64 mm[Hg] Lili Scally Other [facility] Other 01-19-2023 14:45-0500Respiratory rate18 /minDeborah Scally Other [facility] Other 01-19-2023 14:45-7861EaR7% (BldA) [Mass fraction]96 % Lili Scally Other [facility] Other 01-19-2023 14:45-0500Systolic blood weuipsty845 mm[Hg] Lili Scally Other [facility] Other 09-12-2022 11:15-0400Body .02 cmDeborah Scally Other [facility] Other 09-12-2022 11:15-0400Body mass index (BMI) [Ratio] 45.49 kg/x3Zsmrynx Scally Other [facility] Other 09-12-2022 11:15-0400Body hommtj684.48 kgDeborah Scally Other [facility] Other 09-12-2022 11:15-0400Diastolic blood eyccudxu12 mm[Hg] Lili Scally Other [facility] Other 09-12-2022 11:15-0400Respiratory rate18 /minDeborah Scally Other [facility] Other 09-12-2022 11:15-9429UdU1% (BldA) [Mass fraction]97 % Lili Scally Other [facility] Other 09-12-2022 11:15-0400Systolic blood xcmshkfu326 mm[Hg] Lili Scally Other [facility] Other 05-19-2022 09:15-0400Body tvjgaz155.02 cmDeborah Scally Other [facility] Other 05-19-2022 09:15-0400Body mass index (BMI) [Ratio] 45.79 kg/n8Fvkaftmnazario Burgos Other [facility] Other 05-19-2022 09:15-0400Body pcszso754.26 kgDenazario Burgos Other [facility] Other 05-19-2022 09:15-0400Diastolic blood eamyplwh31 mm[Hg] Lili Airamly Other [facility] Other 05-19-2022 09:15-0400Respiratory rate18 /minDeborah Scally Other [facility] Other 05-19-2022 09:15-4820VhM9% (BldA) [Mass fraction]96 % Lili Airamly Other [facility] Other 05-19-2022 09:15-0400Systolic blood xmexxdup329 mm[Hg] Lili Airamly Other [facility] Other 10-06-2021 10:30-0400Body giflln565.02 cmClifford Munoz Jr. Other [facility] Other 10-06-2021 10:30-0400Body mass index (BMI) [Ratio] 46.97 kg/x7XkbssgClifford Munoz Jr. Other noSogou Other 10-06-2021 10:30-0400Body oyiaqk268.29 kgClifford Munoz Jr. Other noSogou Other 10-06-2021 10:30-0400Diastolic blood mm[Hg] Clifford Munoz Jr. Other noSogou Other 10-06-2021 10:30-0400Respiratory rate18 /minDregina Munoz Jr. Other noSogou Other 10-06-2021 10:30-8119YoO4% (BldA) [Mass fraction]97 % Clifford Munoz Jr. Other noSogou Other 10-06-2021 10:30-0400Systolic blood wqowycuz487 mm[Hg] Clifford Munoz Jr. Other Loudeye Other Encounters Encounter DateEncounter TypeCare ProviderFacilityStart: 11-29-2024 End: 82-10-9042eufnohkojjVQXKAPH A FITZPATRICKNot AvailableStart: 11-28-2024 End: 32-60-6109qlesznelisJnibbhv Yue Cedillo MDFacility:PM [place] Start: 11-22-2024 End: 15-61-0633Udtoigpcu encounterJennifer Cabrera MD Work Phone: [facility] MedicineStart: 11-21-2024 End: 36-85-7864ncqzcpujqxTMYDMMQ A FITZPATRICKNot AvailableStart: 11-21-2024 End: 19-12-7855Tgwxub outpatient visit 25 minutesChristy A Kohler MEDICAL ANTHROPOLOGY DIRECTOR Work Phone: [facility] MedicineComment on above:Need for vaccination (Primary Dx); Pain of left femurStart: 11-21-2024 End: 10-56-1648ofptjtjipzNSAMEJD A FITZPATRICKNot AvailableStart: 11-21-2024 End: 79-45-3347Czhjmt flowsheetChristy A Kohler MEDICAL ANTHROPOLOGY DIRECTOR Work Phone: [facility] MedicineStart: 11-21-2024 End: 68-40-8665Dmopkh flowsheetChristy A Kohler MEDICAL ANTHROPOLOGY DIRECTOR Work Phone: [facility] MedicineStart: 11-19-2024 End: 24-31-3356Veggaivtq encounterJennifer Cabrera MD Work Phone: [facility] MedicineStart: 11-18-2024 End: 67-04-5851fyviszsmasBnpmtii Kohler MEDICAL ANTHROPOLOGY DIRECTOR-C Work Phone: [facility] Work Phone: Start: 11-18-2024 End: 98-01-4639Qkbphfe encounter procedureGabrielvicki Joanie Burgos [facility] Work Phone: Start: 11-17-2024 End: 09-21-2078Nlgvzm flowsEmmie Cabrera MD Work Phone: [facility] MedicineStart: 11-17-2024 End: 46-93-1914Sllmrk Tiffanie Cabrera MD Work Phone: [facility] MedicineStart: 11-17-2024 End: 40-46-6365xebrhrxaamRHWQDGIR HOHMANNot AvailableStart: 11-17-2024 End: 85-65-7653Ydaapr outpatient visit 15 minutesJennifer Cabrera MD Work Phone: [facility] MedicineComment on above:Sore throatStart: 11-16-2024 End: 05-56-0284kgngzslnpoGMAU J TRAVISProMedica Vandergrift HospitalStart: 10-31-2024 End: 88-79-5035Sqlxntm encounter procedureShama Allen MEDICAL ANTHROPOLOGY DIRECTOR-C-[facility] [place] Work Phone: Start: 10-31-2024 End: 66-85-5692egaoxlfehlBtfvzul Jose F MEDICAL ANTHROPOLOGY DIRECTOR-C Work Phone: [facility] Work Phone: Start: 09-23-2024 End: 38-23-5024Nislpw outpatient visit 15 minutesSalillian Jaguar MEDICAL ANTHROPOLOGY DIRECTOR Work Phone: [facility] MedicineComment on above:Acute left-sided low back pain with left-sided sciatica (Primary Dx)Start: 09-23-2024 End: 60-08-6452sliawyfuzkQXUQG KAMPFERNot AvailableStart: 09-23-2024 End: 68-91-2026Myydrl flowsheetSlouis Kamclaudiafer MEDICAL ANTHROPOLOGY DIRECTOR Work Phone: [facility] MedicineStart: 09-23-2024 End: 43-13-5825Lyjzdx flowsheetSlouis Hernandezfer MEDICAL ANTHROPOLOGY DIRECTOR Work Phone: [facility] MedicineStart: 09-14-2024 End: 82-65-6457amudfkbtyfKAYXH KAMPFERNot AvailableStart: 09-14-2024 End: 51-24-5425Xvmeye flowsheetSarah Kampfer MEDICAL ANTHROPOLOGY DIRECTOR Work Phone: noMS [facility] MedicineStart: 09-14-2024 End: 49-06-5374Ydqgsn flowsheetSlouis Hernandezpfer MEDICAL ANTHROPOLOGY DIRECTOR Work Phone: [facility] MedicineStart: 09-14-2024 End: 50-28-0330Apfpha outpatient visit 15 minutesSadayami Hernandezfer MEDICAL ANTHROPOLOGY DIRECTOR Work Phone: noMS [facility] MedicineComment on above:Left leg cellulitis (Primary Dx)Start: 09-07-2024 End: 71-04-3302Nwtkkdaik department patient visitPAUL Omayra VYASProMedica Vandergrift HospitalStart: 08-30-2024 End: 52-85-7811Hlmtlg flowsheetSlouis Trujillo MEDICAL ANTHROPOLOGY DIRECTOR Work Phone: [facility] FNR FMStart: 08-30-2024 End: 02-62-8514Yxplqz flowsSuraj Jaguar MEDICAL ANTHROPOLOGY DIRECTOR Work Phone: noms FNR FMStart: 08-30-2024 End: 83-40-2473fyzitiuordOHPRS JAGUARNot AvailableStart: 08-30-2024 End: 44-06-1182Yprtvkt encounter procedureSlouis Davidfrankie MEDICAL ANTHROPOLOGY DIRECTOR Work Phone: noms FNR FMComment on above:Encounter for wellness examination (Primary Dx); Primary hypertension ; Type 2 diabetes mellitus with hyperglycemia, with long-term current use of insulin (HCC); History of uterine cancer; Morbid obesity (CMS-HCC); Mixed hyperlipidemia ; Encounter for screening mammogram for malignant neoplasm of breast; Encounter for immunization; Left hip pain; Recurrent major depressive disorder, in partial remission ; USP (current) use of insulin (HCC); Chronic kidney disease, stage 2 (mild); Chronic pain disorderStart: 08-30-2024 End: 39-26-3582Iadljch encounter statusdayami Davidfrankie MEDICAL ANTHROPOLOGY DIRECTOR Work Phone: [facility] Work Phone: Start: 92-22-0102Gqd-patient / Non-visitKaya Tomlinson RN-[facility]erged With [facility] Work Phone: Start: 08-24-2024 End: 83-38-4510Ppkuyi Elle HILL Work Phone: [facility] FB ORTHOPAEDICSStart: 08-24-2024 End: 78-27-9579Gmbflf Elle HILL Work Phone: [facility] FB ORTHOPAEDICSStart: 08-24-2024 End: 49-01-1312Fffewr follow up visit related to original Dorothy HILL Work Phone: noms FB ORTHOPAEDICSComment on above:S/P arthroscopy of right shoulder (Primary Dx)Start: 08-24-2024 End: 30-44-1736yypmhzdipkVQDMRVD J MEYERNot AvailableStart: 08-02-2024 End: 83-30-8321Rhoctr flowsheetChristy A Kohler MEDICAL ANTHROPOLOGY DIRECTOR Work Phone: noms FNR FMStart: 08-02-2024 End: 08-56-8539Zieddj flowsheetChristy A Kohler MEDICAL ANTHROPOLOGY DIRECTOR Work Phone: noms FNR FMStart: 08-02-2024 End: 18-32-7554Jhogay outpatient visit 25 minutesChristy A Kohler MEDICAL ANTHROPOLOGY DIRECTOR Work Phone: noms FNR FMComment on above:Acute pain of right shoulder (Primary Dx); Acute pain of right knee; Primary hypertensionStart: 08-02-2024 End: 05-30-8582neveeiahznGYNWGCN A FITZPATRICKNot AvailableStart: 08-01-2024 End: 58-11-7383Rjxalkhvd encounterLauren HILL Work Phone: noms SWS ORTHOStart: 07-20-2024 End: 86-98-1096Iumjkh flowsJess HILL Work Phone: n[facility] FB ORTHOPAEDICSStart: 07-20-2024 End: 61-84-0458Xxdorp flowsJess HILL Work Phone: [facility] FB ORTHOPAEDICSStart: 07-20-2024 End: 71-96-3899Zrzgdy follow up visit related to original Dorothy HILL Work Phone: noms FB ORTHOPAEDICSComment on above:S/P arthroscopy of right shoulder (Primary Dx)Start: 07-20-2024 End: 71-68-1530bfaxfxdlohSFMDCBK J MEYERNot AvailableStart: 07-01-2024 End: 53-54-9396Nlyfyp flowsJess HILL Work Phone: n[facility] FB ORTHOPAEDICSStart: 07-01-2024 End: 85-67-4072Axfprd flowsJess HILL Work Phone: [facility] FB ORTHOPAEDICSStart: 07-01-2024 End: 43-71-6231Fomity follow up visit related to original Cynthiajenniferzoie Bloom Brian HILL Work Phone: noms FB ORTHOPAEDICSComment on above:S/P arthroscopy of right shoulder (Primary Dx)Start: 07-01-2024 End: 93-55-5523shimlozxmlIYVHGOK J MEYERNot AvailableStart: 06-21-2024 End: 70-66-2962Whladl flowsJess HILL Work Phone: n[facility] FB ORTHOPAEDICSStart: 06-21-2024 End: 91-40-5900Ikvcuw Elle HILL Work Phone: n[facility] FB ORTHOPAEDICSStart: 06-21-2024 End: 30-72-2176elgbplvdkeKCCDFOF J MEYERNot AvailableStart: 06-21-2024 End: 80-41-9585Ugmytr follow up visit related to original Cynthiacarmen HILL Work Phone: noms FB ORTHOPAEDICSComment on above:S/P arthroscopy of right shoulder (Primary Dx)Start: 06-17-2024 End: 90-90-6102cbkgngecaxDUIIIL C STEPANICFacility:[facility] HospitalStart: 06-16-2024 End: 14-56-6366FboqjlMffddkc A Kohler MEDICAL ANTHROPOLOGY DIRECTOR Work Phone: [facility] FNR FMComment on above:Primary hypertension (CMS/HCC)Start: 06-14-2024 End: 23-32-8771Eudabp Tiffanie Cabrera MD Work Phone: [facility] F[facility] FMStart: 06-14-2024 End: 49-05-9935Ceypxy Tiffanie Cabrera MD Work Phone: [facility] F[facility] FMStart: 06-14-2024 End: 91-25-0380Vhoyla outpatient visit 25 minutesJennifer Cabrera MD Work Phone: 1([phone] FNR FMComment on above:Nonrheumatic aortic valve stenosis (Primary Dx); Arthritis of left acromioclavicular joint; Preoperative clearance; Primary hypertension (CMS/HCC); Malignant neoplasm of endometrium (CMS/HCC); Stage 3a chronic kidney disease (HCC) (CMS/HCC); BMI 50.0-59.9, adult (CMS/HCC)Start: 06-14-2024 End: 50-94-8959Hwxkzeujbhkn Preethi Cabrera MD Work Phone: NO[facility] HealthcareStart: 06-14-2024 End: 71-56-7785fnoqncdglhIPPNCWIY HOHMANNot AvailableStart: 06-10-2024 End: 17-82-9762Syztpb Nicole Trujillo NP Work Phone: n[facility] FNR FMStart: 06-10-2024 End: 57-96-9285Jhyylistanley Trujillo NP Work Phone: n[facility] FNR FMStart: 06-10-2024 End: 76-72-7458Ncvehn outpatient visit 15 minutesSadayami Trujillo NP Work Phone: noms FNR FMComment on above:Acute laryngitis (Primary Dx)Start: 06-10-2024 End: 07-15-8864wksxlhaggvAUYEA KAMPFERNot AvailableStart: 06-08-2024 End: 51-40-7825uiuedrnmclRYNF J TRAVISProMedica [facility] HospitalStart: 06-01-2024 End: 47-50-4720kurlxsmuwbKLRSVR C STEPANICFacility:[facility] HospitalStart: 05-31-2024 End: 10-88-6676Gzjlako encounter procedureMaharriett HILL Work Phone: noms FB ORTHOPAEDICSComment on above:Pre-op examination (Primary Dx)Start: 05-31-2024 End: 98-57-5160Dwuegcckshdjk examination doneMaharriett HILL Work Phone: [facility] Work Phone: Start: 05-31-2024 End: 01-92-9370irlwtdjkeeZDSQAXA J MEYERNot AvailableStart: 05-31-2024 End: 36-28-9703Vtgjry flowsheetLauren HILL Work Phone: [facility] FB ORTHOPAEDICSStart: 05-31-2024 End: 56-75-4795Awutmv flowsJess HILL Work Phone: [facility] FB ORTHOPAEDICSStart: 05-25-2024 End: 12-70-0989qznjefzoncAnzslzp Kohler MEDICAL ANTHROPOLOGY DIRECTOR-C Work Phone: [facility] Work Phone: Start: 05-25-2024 End: 84-24-4998Yvaqipa encounter procedureChristy Kohler MEDICAL ANTHROPOLOGY DIRECTOR-C Work Phone: [facility] Work Phone: Start: 05-25-2024 End: 81-21-0854rrqntysyjzNwkydmn Kohler MEDICAL ANTHROPOLOGY DIRECTOR-C Work Phone: [facility] Work Phone: Start: 05-25-2024 End: 79-31-0401Pwhldit encounter procedureChristy Kohler MEDICAL ANTHROPOLOGY DIRECTOR-C Work Phone: [facility] Work Phone: Start: 05-23-2024 End: 88-73-1065Nfbmdn flowsheetSteven A Rusher DPM Work Phone: noms PODIATRYStart: 05-23-2024 End: 46-91-8988Iwyjpj flowsheetSteven A Rusher DPM Work Phone: [facility] PODIATRYStart: 05-23-2024 End: 02-48-8444Fjyumh outpatient visit 15 minutesSteven A Rusher DPM Work Phone: noms PODIATRYComment on above:Bursitis of left foot (Primary Dx); Acquired keratoderma; Pain in left foot; Difficulty walkingStart: 05-23-2024 End: 13-34-1477pzppqbpzipYCALGT A RUSHERNot AvailableStart: 04-26-2024 End: 76-48-3850Riogfi outpatient visit 40 minutesJr. Akash Rodriguez DO Work Phone: NOGK FB ORTHOPAEDICSComment on above:Acute pain of right shoulder (Primary Dx); Arthritis of right acromioclavicular joint; Biceps tendinitis, right; Partial nontraumatic tear of rotator cuff, rightStart: 04-26-2024 End: 49-39-5359dngpquhdtsHGAKASH KANG AvailableStart: 04-18-2024 End: 91-77-6364Nhxhudsrt Ally Trujillo MEDICAL ANTHROPOLOGY DIRECTOR Work Phone: NOCA FNR FMStart: 04-12-2024 End: 43-61-2597Ncrrwz Herlinda Osorio MEDICAL ANTHROPOLOGY DIRECTOR Work Phone: [facility] FNR FMStart: 04-12-2024 End: 65-69-0663Fbiibn Herlinda Osorio MEDICAL ANTHROPOLOGY DIRECTOR Work Phone: NOUR FNR FMStart: 04-12-2024 End: 40-61-8459Nwkenr outpatient visit 25 minutesPaisrael Osorio MEDICAL ANTHROPOLOGY DIRECTOR Work Phone: [facility] FNR FMComment on above:Type 2 diabetes mellitus with diabetic mononeuropathy, with long-term current use of insulin ([facility]) (Primary Dx); SOB (shortness of breath); Wheezing; Poorly-controlled hypertension (CMS/HCC)Start: 04-12-2024 End: 70-52-5057Sjdwio OnlyAlexandra Osorio MEDICAL ANTHROPOLOGY DIRECTOR Work Phone: [facility] FNR FMComment on above:Acute non-recurrent pansinusitis (Primary Dx)Start: 03-23-2024 End: 56-67-8030Woapbjstanley Tineo PT Work Phone: noms FB PTStart: 03-23-2024 End: 42-25-1067Bmnhzo flowsheetKydusty Tineo PT Work Phone: noms FB PTStart: 03-23-2024 End: 28-67-3966lgmagfzpggCynv J Spriggs PT Work Phone: noms FB PTComment on above:Biceps tendinitis, right (Primary Dx); Impingement of right shoulderStart: 03-16-2024 End: 57-54-5799Cruffw flowsheetJr. Akash Rodriguez DO Work Phone: noms SWS ORTHOStart: 03-16-2024 End: 56-94-9904Eufuoi flowsheetJr. Akash Rodriguez DO Work Phone: noms SWS ORTHOStart: 03-16-2024 End: 33-77-1679Bjxzcu outpatient visit 25 minutesJr. Akash Rodriguez DO Work Phone: noms SWS ORTHOComment on above:Acute pain of right shoulder (Primary Dx); Arthritis of right acromioclavicular joint; Biceps tendinitis, rightStart: 03-16-2024 End: 48-73-4083sycjktstblLG., AKASH RODRIGUEZNot AvailableStart: 2024 End: 78-39-4295JbedwzLebkk G Keefe DO Work Phone: noms FNR FMComment on above:Mixed hyperlipidemia (CMS/HCC)Start: 03-10-2024 End: 07-11-8400Oqgxncv encounter procedureChristy Kohler MEDICAL ANTHROPOLOGY DIRECTOR-C Work Phone: [facility] [place] Work Phone: Start: 03-10-2024 End: 09-78-1237jjkuzqpgaqKeeqadg Kohler MEDICAL ANTHROPOLOGY DIRECTOR-C Work Phone: [facility] Work Phone: Start: 03-05-2024 End: 03-49-1926Tullrr flowsheetPatricia Des Osorio MEDICAL ANTHROPOLOGY DIRECTOR Work Phone: noms FNR FMStart: 03-05-2024 End: 58-77-9816Psvcqz flowsheetPatricia A Yoly MEDICAL ANTHROPOLOGY DIRECTOR Work Phone: noms FNR FMStart: 03-05-2024 End: 57-60-7791Aiyxynycb encounterPatricia Des Osorio MEDICAL ANTHROPOLOGY DIRECTOR Work Phone: noms FNR FMStart: 03-05-2024 End: 73-15-5483Xshvmg outpatient visit 15 minutesPaisrael Osorio MEDICAL ANTHROPOLOGY DIRECTOR Work Phone: noms FNR FMComment on above:Left leg cellulitis (Primary Dx); Type 2 diabetes mellitus with diabetic mononeuropathy, with long-term current use of insulin ([facility]); Skin rash; Opioid dependence, uncomplicated (CMS/[facility])Start: 03-05-2024 End: 90-35-9074yegvodomlcULWHJJPQ Des OSORIONot AvailableStart: 03-02-2024 End: 98-70-2518Pfknrewqz encounterMaharriett Torres PA Work Phone: noms FB ORTHOPAEDICSComment on above:MRI Concerns Start: 77-51-2740Yzh-patient / Non-visitChristy Kohler MEDICAL ANTHROPOLOGY DIRECTOR-C Work Phone: [facility] GroupL[facility] Work Phone: Start: 02-29-2024 End: 10-57-0363Lbsyhm outpatient visit 25 minutesAlexandra Osorio MEDICAL ANTHROPOLOGY DIRECTOR Work Phone: noms FNR FMComment on above:Type 2 diabetes mellitus with diabetic mononeuropathy, with long-term current use of insulin ([facility]) (Primary Dx); Left leg cellulitis; Morbid (severe) obesity due to excess calories ([facility]); Body mass index (BMI) 50.0-59.9, adult (CMS/[facility]); Type 2 diabetes mellitus with other skin complications ([facility]); Bipolar disorder, unspecified ([facility])Start: 02-29-2024 End: 92-60-8793tcrhgzfbyhZIBSAQAM A TYLERGALLITOJASMYNEDONNANot AvailableStart: 02-29-2024 End: 12-59-1866Yzmnfs flowsheetPatricia A Tylervijaya MEDICAL ANTHROPOLOGY DIRECTOR Work Phone: NOTN FNR FMStart: 02-29-2024 End: 90-22-1518Gezaby flowsheetPatricia A Hagallitoenburg MEDICAL ANTHROPOLOGY DIRECTOR Work Phone: NODE FNR FMStart: 01-26-2024 End: 19-78-5346Izbgyg Elle HILL Work Phone: n[facility] FB ORTHOPAEDICSStart: 01-26-2024 End: 22-52-9955Xmpqtt Elle HILL Work Phone: n[facility] FB ORTHOPAEDICSStart: 01-26-2024 End: 84-48-9181Lezkki outpatient visit 15 minutesMaharriett HILL Work Phone: noms FB ORTHOPAEDICSComment on above:Acute pain of right shoulder (Primary Dx); Arthritis of right acromioclavicular joint; Internal derangement of right shoulder; History of claustrophobiaStart: 01-26-2024 End: 50-93-4248tdpclhrkzjOAFDHTA J MEYERNot AvailableStart: 01-19-2024 End: 73-12-6434Bndzam flowsheetChristy A Kohler MEDICAL ANTHROPOLOGY DIRECTOR Work Phone: [facility] FNR FMStart: 01-19-2024 End: 15-84-5888Dzpojm flowsheetChristy A Kohler MEDICAL ANTHROPOLOGY DIRECTOR Work Phone: [facility] FNR FMStart: 01-19-2024 End: 48-72-4781Vgccpm outpatient visit 15 minutesChristy A Kohler MEDICAL ANTHROPOLOGY DIRECTOR Work Phone: NOOL FNR FMComment on above:Bronchitis (Primary Dx); 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); WheezingStart: 01-19-2024 End: 09-47-7066pgvlyegnzjWCVLZNK A Leland AvailableStart: 01-11-2024 End: 00-27-0221UsiaydNhdtq Joellen Patel DO Work Phone: noms FNR FMComment on above:Primary hypertension (CMS/HCC)Start: 01-05-2024 End: 00-04-6476ngpuzaqollXGAB J TRAVISProSt. Mary'S Medical Centerca [facility] Community Hospitaltart: 12-30-2023 End: 79-58-5233vofcmafgnrBjsboakakSt. John of God Hospital Work Phone: Start: 12-30-2023 End: 66-67-7231Ryensar encounter procedureCarolinaeast Medical Center Physician GroupSAINT CL[facility] Work Phone: Start: 12-29-2023 End: 81-79-9951Zgaofe flowsheetLauren HILL Work Phone: noms FB ORTHOPAEDICSStart: 12-29-2023 End: 01-58-8398Gjknqm flowsJess HILL Work Phone: noms FB ORTHOPAEDICSStart: 12-29-2023 End: 56-53-6416Bweggi outpatient visit 25 minutesMattcarmen HILL Work Phone: noms FB ORTHOPAEDICSComment on above:Acute pain of right shoulder (Primary Dx); Arthritis of right acromioclavicular jointStart: 12-29-2023 End: 35-97-6634owbsarpsgdGRRDOWM J MEYERNot AvailableStart: 25-62-7205Pxw- patient / Non-visitCarolinaeast Medical Center [facility] Work Phone: Start: 12-11-2023 End: 79-72-4831Xlxlqv flowsJess HILL Work Phone: noms FB ORTHOPAEDICSStart: 12-11-2023 End: 44-49-3274Xpggfc flowsJess HILL Work Phone: noms FB ORTHOPAEDICSStart: 12-11-2023 End: 87-85-7678Fvxnjh outpatient visit 15 minutesLauren HILL Work Phone: noms FB ORTHOPAEDICSComment on above:Acute pain of left knee (Primary Dx); History of left knee replacementStart: 12-11-2023 End: 74-26-2828cuvymanuzmFOXHNXA J MEYERNot AvailableStart: 12-06-2023 End: 96-31-4312NcidurBarvh Joellen Patel DO Work Phone: noms FNR FMComment on above:Primary hypertension (CMS/HCC)Start: 11-20-2023 End: 42-01-0624Jzizmy Elle HILL Work Phone: noms FB ORTHOPAEDICSStart: 11-20-2023 End: 92-06-8859Hkrlen Elle HILL Work Phone: noms FB ORTHOPAEDICSStart: 11-20-2023 End: 19-43-9478Axcqcf outpatient visit 25 minutesLauren HILL Work Phone: noms FB ORTHOPAEDICSComment on above:Acute pain of left knee (Primary Dx); History of left knee replacement; Left hip painStart: 09-23-2023 End: 98-01-7130lzehnkrncsUynmhzxooSt. [facility] of [facility] Hospital Work Phone: Start: 09-23-2023 End: 97-90-2579Otfhihx encounter [facility] GroupSA[facility] Work Phone: Start: 08-04-2023 End: 51-56-0802dfualmgozlMRLIPRLBay Area Hospital Start: 07-28-2023 End: 28-46-2156cabtygfreyJZSFLESSt. [facility] Start: 07-16-2023 End: 35-44-4514oehxdsqbbwRMJDTID A [facility] Start: 56-22-7029Sxueukhou for other preprocedural examinationSAYMarion Hospitaltart: 06-30-2023 End: 49-95-1312ofuvjmzvokVYSTVQHMCFQIUmpqua Valley Community Hospital Start: 06-30-2023 End: 45-48-7393Ufnquccckc hospital visit by physicianPiotr Logan MD Work Phone: [facility] Cardiac Cath/IR LabComment on above:Abnormal stress testStart: 06-29-2023 End: 83-69-6171fdbdnfcjtgDCRSGVGNorth Oaks Rehabilitation Hospitaltart: 64-76-0486Eyg-patient / Non-visitFirsentara [facility] Work Phone: Start: 06-23-2023 End: 37-12-3740zwfolvpdhpLLYJNOYILNMYUmpqua Valley Community Hospital Start: 41-02-6847Kpldteykx for preprocedural cardiovascular examination HEMINDERMOhioHealth Nelsonville Health Centertart: 06-18-2023 End: 47-48-6064gqjgforfutLLFPJQF [facility] Hospitaltart: 06-15-2023 End: 39-51-2455ccwbxtwroeLXLQGNZ N [facility] Centertart: 06-04-2023 End: 77-54-6200Vikgrnsoh encounterEdwin Moreno MD Work Phone: [facility] Gynecology OncologyComment on above:Procedure (Out of network)Start: 06-03-2023 End: 48-38-8436gtzwzrfmkrVQYYRonaldo Yo [facility] Centertart: 06-03-2023 End: 32-34-1292Fvilzj outpatient new 60 minutesAdajanet Moreno MD Work Phone: [facility] Gynecology OncologyComment on above:Endometrial cancer ([facility]) (Primary Dx); BMI 50.0-59.9, adult ([facility])Start: 05-22-2023 End: 62-92-3608sxwiisjplrYrzgu Jon Work Phone: [facility] Work Phone: Start: 05-22-2023 End: 25-15-5477Cgxtyozu ReferredCorey Jon Work Phone: [facility]-LAB Path Spec Yoanna HospStart: 05-11-2023 End: 54-96-3141fbcgrowbafGszuqxzxz [facility] Work Phone: Start: 05-11-2023 End: 49-54-3813Yllctyn encounter procedureCarolinaeast Medical Center [facility] Work Phone: Start: 99-12-8804Fqp-patient / Non-visitCarolinaeast Medical Center [facility] Group-[place] [employer] Work Phone: Start: 04-21-2023 End: 37-11-8400Kctxpni encounter procedureCarolinaeast Medical Center [facility] Work Phone: Start: 04-07-2023 End: 01-47-9314imxaozfrfgIR Kalie Rumschlag Work Phone: [facility] Work Phone: Start: 04-07-2023 End: 14-40-4778Pruedts encounter procedureDO Kalie Rumschlag Work Phone: [facility] Work Phone: Start: 03-04-2023 End: 18-99-3670ngczcrrqfrZpekmhd [employer] Other [place] [employer] Other Start: 01-78-0797Jwunktesg encounterCranston General Hospital Coordinated Care ClinicStart: 02-03-2023(DM) DiabetesDeBradley Hospital Coordinated Care ClinicStart: 02-03-2023 End: 02-03-3297tpfbgyrmhnVS Kalie Rumschlag Work Phone: [facility] [employer] Other Start: 02-03-2023 End: 80-20-3007Znljwbaxsy RecurringDO Kalie Rumschlag Work Phone: [facility] Work Phone: Start: 02-03-2023 End: 06-05-7755Qgdsogw encounter procedureDO Kalie Rumschlag Work Phone: [facility] Work Phone: Start: 01-26-2023 End: 44-59-8599vsblwmqhddFmegdnh Airamwinston Other noSogou Other Start: 98-58-6843Rfqmwwbko encounterCranston General Hospital Coordinated Care ClinicStart: 01-02-2023 End: 43-07-7008hykhycdlmzTryyhrn [employer] Other noSogou Other Start: 84-14-1481Eqtmjssrd encounterCranston [facility] Hospital Coord[facility] Care ClinicStart: 11-26-2022(DM) [facility]DeBrad[facility] ClinicStart: 11-26-2022 End: 99-02-1368rolqrkwvbuJfllxfl [place] Other [employer]og[employer] Other Start: 11-25-2022 End: 31-01-5723iicaqelaylKtxx Turner Other [employer] Other start: 71-84-8240Cpdidk outpatient new 30 minutesDale BraunSt. Francis Hospital NeurosurgeryStart: 11-12-2022 End: 93-88-6775goqwdjrtgkLavharz Aubrey Other [employer] Other Start: 91-09-5678Vsxcbaafs encounterDenazario Burgos [facility] ClinicStart: 10-30-2022 End: 53-49-9889Tvlrvqoto to same day surgery centerDO Judith Patel Work Phone: [facility] Work Phone: Start: 10-30-2022 End: 48-12-5015oakgddekooQP Judith Patel Work Phone: [facility] Work Phone: Start: 10-09-2022 End: 36-22-3405wtlbvevrlhGcgoepm Tobias Other [employer] Other start: 04-76-6274Giiezb outpatient visit 25 minutes Martine [facility]iasLawrence [facility] HospitalStart: 10-07-2022 End: 71-09-2984jpdbgzkrwiHG Renee G Keefe Work Phone: [facility] Work Phone: Start: 10-07-2022 End: 92-97-0088Puhxkty encounter procedureDO Judith Patel Work Phone: [facility] Work Phone: Start: 10-03-2022(DM) DiabetesDeHasbro [facility]'s Hospital Coordinated Care ClinicStart: 10-03-2022 End: 69-30-5304tdlxqvhonsAtuscfx Airamwinston Other noSogou Other Start: 73-34-8870Uuulqoxttl RecurringDO Judith Patel Work Phone: [facility] Work Phone: Start: 09-26-2022 End: 09-43-1373ubpvfsfrxkRxwgmtw Aubrey Other noSogou Other Start: 28-77-2014Jjigecpjt encounterDenazario Burgos [facility] Coordinated Care ClinicStart: 09-19-2022 End: 94-34-7655xupknlzskxIZ Kalie Rumschlag Work Phone: [facility] Work Phone: Start: 09-19-2022 End: 52-83-7421Gygcjci encounter procedureDO Kalie Rumschlag Work Phone: [facility] [place] Work Phone: Start: 08-18-2022 End: 09-78-6573nwftvmigtaAH Kalie Rumschlag Work Phone: [facility] Work Phone: Start: 08-18-2022 End: 10-46-6397Rtzjbge encounter procedureDO Kalie Rumschlag Work Phone: [facility]XRay [facility] [place] Work Phone: Start: 08-12-2022 End: 05-60-4288aeqkfjtvjfPdlmohe Springer Other [employer] Other start: 20-17-3945Xmnewa outpatient new 45 minutes Martine [facility]St[facility] NeurosurgeryStart: 10-79-5667Efialqouf encounter Lili Noland Coordinated Care ClinicStart: 08-05-2022 End: 19-27-3398qzoduvqfurYixssei Scally Other [employer] Other Start: 61-26-5744Oxawyrgju encounterLili AlegriaPine Rest [facility] Services Coordinated Care ClinicStart: 08-01-2022(DM) DiabetesDeBradley Hospital Coordinated Care ClinicStart: 08-01-2022 End: 54-48-6168rtcvtpqpcdOwkcvyj Scally Other [employer] Other Start: 97-62-7162Dlwmhbohwx David Kasper Work Phone: [facility] Work Phone: Start: 07-22-2022 End: 83-12-4337nczlurymmzOffcycv Scally Other noSogou Other Start: 65-88-0397Pcpmmkimm encounterDeBradley Hospital Coordinated Care ClinicStart: 07-09-2022 End: 13-45-2568kgohixipmgAmepprq Scally Other noSogou Other Start: 15-31-9413Dbjnzphno encounterCranston General Hospital Coordinated Care ClinicStart: 07-01-2022 End: 20-03-1747wdukvhstzpMXBPKQ [facility] COMMUNITYFacility:P5Zzsww: 06-20-2022 End: 87-60-8582odlgkekewjFCTPEX PARTNERS COMMUNITYFacility:K3Mgucr: 06-16-2022 End: 73-15-5677xcmfuarjmsOngicvy Scally Other noSogou Other Start: 37-73-1926Akwxetnqy encounterCranston General Hospital Coordinated Care ClinicStart: 06-06-2022(DM) DiabetesDeBradley Hospital Coordinated Care ClinicStart: 06-06-2022 End: 58-08-4596bgxuoltmkzQfaxoms Airamly Other noSogou Other Start: 06-03-2022 End: 07-90-1222vzflecbfpaVWLXDIIDAODT LAKSHMIPATHY .Facility:V6Ouxer: 05-15-2022 End: 73-13-2296drenxeiwqhSHJEEH PARTNERS COMMUNITYFacility:D0Kcgar: 05-13-2022 End: 10-11-5194yzllduweujCaxrssf Scally Other noU4iA [employer] Other Start: 63-64-2338Pnjpvwtmb encounterDest. clare hospitalvicki [facility] Coordinated Care ClinicStart: 04-14-2022 End: 84-40-8840wtltfxzbhmWtkhqzv Airamly Other nortGameLayers Other Start: 82-42-9561Vebkwpusb encounterDeBradley Hospital Coordinated Care ClinicStart: 04-03-2022 End: 91-54-1522nkcrtreleoWqfggwn Scally Other noU4i[employer] Other Start: 16-06-9710Xsylccods encounterDeBradley Hospital Coordinated Care ClinicStart: 03-24-2022 End: 71-15-5887cidjtllettReoikrw Scally Other n[facility] [employer] Other Start: 84-71-7552Edlopuvsu encounterDemary bridge children[facility] AiramPine Rest [facility] Coordinated Care ClinicStart: 03-21-2022 End: 60-43-6581gonieetaieWfvodhf Scally Other noU4iA [employer] Other Start: 16-76-6648Zgbfdfbtf encounterDeBradley Hospital Coordinated Care ClinicStart: 03-06-2022(DM) DiabetesDeBradley Hospital Coordinated Care ClinicStart: 03-06-2022 End: 53-12-2515deosuarhepLGFTQZ PARTNERS [facility] [employer] Other Start: 02-13-2022 End: 92-54-3291lraguilbvvUHONEU PARTNERS [facility]:M9Ifjif: 12-31-2021 End: 05-24-4774ottowbxfbtSkwwwax Scally Other noSogou Other Start: 93-61-7398Blwslbfei encounterLili Burgos [facility] Coordinated Care ClinicStart: 01-10-3576swlpxpjymuBIVDJU PARTNERS COMMUNITYFacility:I4Hcvvc: 11-20-2021 End: 08-75-8216fdhnbwpesaFcandnv Scally Other [employer] Other Start: 84-57-4999Qayqtfalh encounterLili [facility] Coordinated Care ClinicStart: 11-06-2021 End: 04-99-6085hgspabfrtvQEPKWJ PARTNERS COMMUNITYFacility:J9Lsegy: 10-28-2021 (DM) DiabetesDenazario AlegriaMunson Healthcare [facility] Coordinated Care ClinicStart: 10-28-2021 End: 47-70-2864jlfxkykxbeXzmphdm Scally Other noU[employer] Other Start: 09-20-2021 End: 44-29-2656zlyverjhufInqofrd Scally Other noSogou Other Start: 69-85-7404Xvchaaysx encounterLili AlegriaPine Rest [facility] Services Coordinated Care ClinicStart: 09-12-2021 End: 09-25-3255rqoozcffwbLdnkbwl Scally Other [employer] Other Start: 08-28-9780Rknhjzzyz encounterLili AlegriaPine Rest [facility] Coordinated Care ClinicStart: 08-01-2021 End: 29-02-9564kdvlyetedgCUYYDJ PARTNERS COMMUNITYFacility:P8Bhldk: 07-22-2021 End: 27-67-7193emyyoqhneiLqyraqn Scally Other noSogou Other Start: 05-24-7278Flkewtdxy encounterLili [facility] Coordinated Care ClinicStart: 07-08-2021 End: 69-55-2359ksuvefbdruIzhiprm Scally Other [employer] Other Start: 30-76-9791Vgehutfav encounterUniversity Hospitalvicki [facility] Coordinated Care ClinicStart: 07-04-2021(DM) DiabetesCranston General Hospital Coordinated Care ClinicStart: 07-04-2021 End: 64-82-8527jfamxzgdolFxhqcri Scally Other [employer] Other Start: 06-20-2021 End: 05-68-3091apinzwzlyyAhklae Cundiff Other noSogou Other Start: 66-68-5216Bddybogea encounterClifford Munoz [facility] Care ClinicStart: 04-19-2021 End: 46-98-8086ayfsvsvnsiSrnpuu Cundiff Other noSogou Other Start: 06-40-4767Qtfsetuvm encounterClifford Munoz [facility] Care ClinicStart: 03-28-2021 End: 69-68-0146cwnmdsyjccPpxmwh Cundiff Other [employer] Other Start: 92-27-5692Nifmeoetl Shahram Munoz [facility] Care ClinicStart: 01-29-2021 End: 15-44-1070mfqroyleuvVyurle Cundiff Jr. Other noSogou Other Start: 79-65-8356Atgtqesbm encounterClifford Munoz Jr. [facility] Care ClinicStart: 10-42-7911Nfpgltljx Shahram Munoz Jr.[facility] ClinicStart: 11-21-2020(DM) DiabetesClifford Munoz Jr.[facility] Care ClinicStart: 09-25-2016 End: 96-84-1887HjxugkfifxDCFJNE J GEHLINGFacility:[facility] SERVICEStart: 09-20-2016 End: 32-21-1188Bwymmlchs department patient visitMATTHEW WIEPKINGFacility:[facility] Start: 09-08-2016 End: 29-03-6226Pqzpwxdkbz and management of inpatientMARLINE BLAKE Facility:[facility] Procedures DateProcedureProcedure DetailPerforming ClinicianStart: 56-24-1371Jartpynpk streptococcus group Crispin Cabrera MD Work Phone: Start: 76-17-4591KHFBAT COVID-19/FLUJennifer Cabrera MD Work Phone: Start: 51-04-0026UA pre/post mri xrayChristy Kohler MEDICAL ANTHROPOLOGY DIRECTOR-C Work Phone: Start: 63-02-6305CB lumbar spine wo conChristy Kohler MEDICAL ANTHROPOLOGY DIRECTOR-C Work Phone: Start: 44-06-4694EP pre/post mri xrayChristy Kohler MEDICAL ANTHROPOLOGY DIRECTOR-C Work Phone: Start: 33-47-2756ZZZ of right shoulderChristy Kohler MEDICAL ANTHROPOLOGY DIRECTOR-C Work Phone: Start: 87-26-0516Jwrjfnrtmjkzkw aspir&/inj interm jt/burs w/o usMattcarmen HILL Work Phone: Start: 92-11-0883Ysgzm shoulder complete minimum 2 viewsMattcarmen HILL Work Phone: Start: 52-91-4854CmrwkvlkuxeIbvyvkb Meyer PA Work Phone: Start: 07-28-2023H/O: sectionHistory of 3 sectionsAlexandra Osorio NP Work Phone: Start: 74-60-3114Rwfmtfsouxb observation [Identifier] in Cervix by Cyto stainPiotr Logan MD Work Phone: Start: 92-22-3476Zchbcgzmguz myelographyDO Judith Patel Work Phone: Start: 23-11-2855Dyfs energy X-ray absorptiometryDO Judith Patel Work Phone: Start: 19-88-4972RD lumbar spine wo conDO Kalie Kasper Work Phone: Start: 83-78-1369Z-ray of lumbar spine, six views including bending viewsDO Kalie Kasper Work Phone: Start: 49-06-4964VJAYEQR OF R KNEE JT WITH SYNTH SUB, CEMENT, OPEN APPROACHDANIEL J GEHLINGHistory of operative procedure on knee History of left knee replacementMaharriett HILL Work Phone: History of operative procedure on kneeHistory of left knee replacementMaharriett HILL Work Phone: Plan of Treatment DateCare ActivityDetailAuthorStart: 61-06-2051Kvcdnedtv for malignant neoplasm of cervixBON MERCY [facility]NA HOSPITALStart: 20-72-6656Skarqrksf for malignant neoplasm of cervixPap smearPIONEER COMM[facility]ITY [facility] PATRICKStart: 07-15-2026Medicare Annual Wellness (AWV)Medicare Annual Wellness (AWV)[facility] HealthcareStart: 82-69-4662Wochhuxfh vaccinationInfluenza Vaccine (#1)[facility] HealthcareComment on above:Postponed from 10/17/2024 (Patient Refused)Start: 98-98-1925Lffbdqba screeningDiabetes: Retinopathy ScreeningNOSC HealthcareStart: 31-83-1404Wlpib screening for proteinDiabetes: Urine Protein ScreeningPR[facility] HealthcareStart: 06-70-6605Xpuufszjun A1c measurementDiabetes: Hemoglobin V7TYGTFChristian Hospital Start: 11-21-2024 End: 10-10-2439Eskihre encounter nenvrohun01/06/2025 4:00 PM EDT Office Visit [facility] [address] [place] [address] Pastora Kohler NP [address] [place] [address] [facility] TylerComment on above: ArrivedStart: 26-38-9194Pndwfuesu [facility] HospitalStart: 09-26-2024 End: 09-60-2193Safivusrfxbj / ancillary services opkbncliyn86/11/2025 9:30 AM EDT Ancillary Procedure [facility] [address] [place] [address] GHKJ [place] ImagingStart: 09-23-2024 End: 41-70-8700Qlnkupw encounter eodyeiehu60/08/2025 3:30 PM EDT Office Visit [facility] [address] [place] [address] Gabe Trujillo NP [address] [place] [address] [facility] TylerComment on above:Arrived Start: 09-23-2024 End: 01-56-2406YQ Lumbar spine Views W flexion and W extensionXR lumbar spine 4+ views w flexion extension Imaging Routine Acute left-sided low back pain with left-sided sciatica Expected: 09/23/2024, Expires: 09/23/2025[facility] Work Phone: Comment on above:Expected: 09/23/2024, Expires: 09/23/2025Start: 90-35-8314Eqjyvcfct for malignant neoplasm of breastMammogram [facility] HospitalStart: 08-30-2024 End: 92-61-9547GBP W Auto Differential panel - BloodCBC and differential Lab Routine Encounter for wellness examination Expected: 08/30/2024 (Approximate), Expires: 08/30/2025[facility] HospitalComment on above:Expected: 08/30/2024 (Approximate), Expires: 08/30/2025Start: 08-30-2024 End: 52-27-0521Fwsgkkowexqfu metabolic 2000 panel - Serum or PlasmaComprehensive metabolic panel Lab Routine Encounter for wellness examination Primary hypertension Type 2 diabetes mellitus with hyperglycemia, with long-term current use of insulin (HCC) Morbid obesity ([facility]-H[facility]) Expected: 08/30/2024 (Approximate), Expires: 08/30/2025[facility] Work Phone: Comment on above:Expected: 08/30/2024 (Approximate), Expires: 08/30/2025Start: 08-30-2024 End: 42-50-9886VPE Breast - bilateral screeningBilateral screening mammogram with tomosynthesis Imaging Routine Encounter for screening mammogram for malignant neoplasm of breast Expected: 08/30/2024, Expires: 10/31/2025[facility] HealthcareComment on above:Expected: 08/30/2024, Expires: 10/31/2025Start: 08-30-2024 End: 73-03-4427Mobedmowts A1c/Hemoglobin.total in BloodHemoglobin A1c Lab Routine Encounter for wellness examination Type 2 diabetes mellitus with hyperglycemia, with long-term current use of insulin (HCC) Morbid obesity ([facility]- HCC) Expected: 08/30/2024 (Approximate), Expires: 08/30/2025[facility] Healthcare Comment on above:Expected: 08/30/2024 (Approximate), Expires: 08/30/2025Start: 08-30-2024 End: 72-45-1023Tqhks 1996 panel - Serum or PlasmaLipid panel Lab Routine Encounter for wellness examination Primary hypertension Type 2 diabetes mellitus with hyperglycemia, with long-term current use of insulin (HCC) Morbid obesity ([facility]-H[facility]) Mixedhyperlipidemia Expected: 08/30/2024 (Approximate), Expires: 08/30/2025[facility] HealthcareComment on above:Expected: 08/30/2024 (Approximate), Expires: 08/30/2025Start: 08-30-2024 End: 82-99-9733YKT W/REFLEX TO FT4TSH W/REFLEX TO FT4 Lab Routine Encounter for wellness examination Morbid obesity ([facility]-HCC) Expected: 08/30/2024 (Approximate), Expires: 08/30/2025[facility] HealthcareComment on above:Expected: 08/30/2024 (Approximate), Expires: 08/30/2025Start: 58-57-8205Audzairnds A1c measurementDiabetes: Hemoglobin I1BQMUI HealthcareStart: 08-24-2024 End: 14-36-9721Zgxusoe encounter procedureNOMS FB ORTHOPAEDICSComment on above: S/P arthroscopy of right shoulder (Primary Dx)Start: 08-09-2024 End: 30-47-4512Uaufusv encounter cybigtxsm19/24/2025 10:30 AM EDT Office Visit [facility] [address] [place] [address] Pastora Kohler NP [address] [place] [address] [facility] FNR FMStart: 08-02-2024 End: 40-20-0529CV Knee - right 4 ViewsXR knee 4+ views right Imaging Routine Acute pain of right knee Expected: 08/02/2024, Expires: 08/02/2025NOSC HealthcareComment on above:Expected: 08/02/2024, Expires: 08/02/2025Start: 08-02-2024 End: 17-68-9254AL Shoulder - right 2 ViewsXR shoulder 2+ views right Imaging Routine Acute pain of right shoulder Expected: 08/02/2024, Expires: 08/02/2025 [facility] Healthcare Work Phone: Comment on above:Expected: 08/02/2024, Expires: 08/02/2025Start: 08-02-2024 End: 59-13-7901Akzkltt encounter fmaedspoo71/17/2025 9:30 AM EDT Office Visit [facility] [address] [place] [address] [phone] Kohler NP [address] [place] [address] ArrivedNOSC FNR FMComment on above:ArrivedStart: 07-20-2024 End: 23-72-9894Szkgtcz encounter procedureNOMS FB ORTHOPAEDICSComment on above: S/P arthroscopy of right shoulder (Primary Dx)Start: 07-01-2024 End: 30-38-6780Wvooboe encounter procedureNOMS FB ORTHOPAEDICSComment on above: S/P arthroscopy of right shoulder (Primary Dx)Start: 83-66-1238Jbmguousht A1c ocxqdolpxxsH3Q test (Diabetic or Prediabetic)[facility]ITALStart: 86-81-1714Txqoh panelLipidsBON [facility] HOSPITALStart: 06-14-2024 End: 57-26-6082Oejsoeteitdors 2D completeEchocardiogram 2D complete Echocardiography Routine Nonrheumatic aortic valve stenosis Expected: 06/14/2024 (Approximate), Expires: 06/14/2026[facility] Work Phone: Comment on above:Expected: 06/14/2024 (Approximate), Expires: 06/14/2026Start: 06-14-2024 End: 41-63-2221Eeeefdh encounter dtkdxolmv43/29/2025 10:00 AM EDT Office Visit [facility] [address] [place] [address] Jennifer Cabrera MD [address] [place] [address] ArrivedNOFRESENIUS MEDICAL CARE AT CARELINK OF JACKSONR FMComment on above:ArrivedStart: 06-10-2024 End: 32-35-2819Abekfdk encounter ncqneijck76/25/2025 11:30 AM EDT Office Visit [facility] [address] [place] [address] Gabe Trujillo NP [address] [place] [address] [facility] FNR FMComment on above:ArrivedStart: 06-09-2024 End: 86-72-4932Ssazrpe encounter iwefgnyiz58/24/2025 2:45 PM EDT Procedure Visit [facility] [address] [place] [address] Blane Pino DPM [address] [place] [address] [facility] PODIATRYStart: 79-67-8364Ujdxc BMI ScreeningAdult BMI Screening [facility] SystemStart: 51-88-5244Taecoai ScreeningTobacco Screening [facility] SystemStart: 05-31-2024 End: 20-85-3687Gmwqbxa encounter procedureNOMS ORTHOPAEDICSComment on above: Pre-op examination (Primary Dx)Start: 05-23-2024 End: 59-40-8200Iswcyzb encounter hlsgngacd69/07/2025 1:30 PM EDT Office Visit [facility] [address] [place] [address] Blane Pino DPM [address] [place], [place] [address] ArrivedNOTWO RIVERS [facility] PODIATRYComment on above:ArrivedStart: 03-28-2025Medicare Annual Wellness (AWV)Medicare Annual Wellness (AWV)NOM HealthcareStart: 76-27-9001Hadipyddhp A1c measurementDiabetes: Hemoglobin X4AFYWB Healthcare Start: 04-26-2024 End: 55-21-2565Uoydmjy encounter aeszhrlez34/11/2025 8:45 AM EDT Office Visit [facility] [address] [place] [address] Jr. Akash Rodriguez, DO [address] [facility] [address] [place] [address] [facility] ORTHOPAEDICSStart: 49-22-1782Fhjzq screening for proteinDiabetes: Urine Protein ScreeningNOSC HealthcareStart: 04-12-2024 End: 39-89-9319VG Chest 2 ViewsNOSC Healthcare Work Phone: Comment on above:Expected: 04/12/2024, Expires: 04/12/2025Start: 04-12-2024 End: 61-15-9299Oxmfsoh encounter zekhrozkc52/25/2025 11:00 AM EST Office Visit [facility] [address] [place] [address] Alexandra Osorio NP [address] [place] [address] ArrivedNOMS FNR FMComment on above:ArrivedStart: 03-23-2024 End: 85-17-9272fdtzgrhkal93/05/2025 9:00 AM EST Evaluation [facility] [address] [place] [address] Sean Tineo, PT [address] [place] [address] Biceps tendinitis, rightNOMS FB PTComment on above:Biceps tendinitis, rightStart: 03-18-2024 End: 10-22-9502jfsqvebycb79/31/2025 2:00 PM EST Evaluation [facility] [address] [place] [address] Sean Tineo, PT [address] [place] [address] [facility] FB PTStart: 03-16-2024 End: 76-19-2670Feawadj encounter procedureNOMS SWS ORTHOComment on above:Acute pain of right shoulder (Primary Dx); Arthritis of right acromioclavicular joint; Biceps tendinitis, rightStart: 03-05-2024 End: 85-32-2126Hicfpfs encounter lmuodbbke65/18/2025 9:00 AM EST Office Visit [facility] [address] [place] [address] [phone] Osorio NP [address] [place] [address] ArrivedNOMS FNR FMComment on above:ArrivedStart: 03-03-2024 End: 13-10-1394Qwdppci encounter pebrvaneu00/16/2025 9:30 AM EST Office Visit [facility] [address] [place] [address] [phone] Osorio NP [address] [place] [address] [facility] FNR FMStart: 03-02-2024 End: 16-05-9937Gxcququ encounter dtbvcteej48/15/2025 9:30 AM EST Office Visit [facility] [address] [place] [address] Jr. Akash Rodriguez DO [address] [facility] [address] [place] [address] [facility] ORTHOStart: 02-29-2024 End: 00-80-4945Cfmdstg encounter /13/2025 4:30 PM EST Office Visit [facility] [address] [place] [address] [phone] Osorio NP [address] [place] [address] ArrivedNOMS FNR FMComment on above:ArrivedStart: 02-23-2024 End: 87-88-0028Abrhbkl encounter vyvpbosbx94/07/2025 10:00 AM EST Office Visit [facility] [address] [place] [address] Lauren Torres PA [address] [facility] [address] [place] [address] [facility] FB ORTHOPAEDICSStart: 01-26-2024 End: 03-98-5815Agstbuo encounter vvxlqwvih16/10/2024 10:15 AM EST Office Visit [facility] [address] [place] [address] Lauren Torres, PA [address] [facility] [address] [place] [address] Acute pain of right shoulder (Primary Dx); Arthritis of right acromioclavicular jointNOMS FB ORTHOPAEDICSComment on above:Acute pain of right shoulder (Primary Dx); Arthritis of right acromioclavicular jointStart: 01-22-2024 End: 57-19-1162Knncgjs encounter bfetkktif83/06/2024 10:15 AM EST Office Visit [facility] [address] [place] [address] Lauren Torres PA [address] [facility] [address] [place] [address] [facility] FB ORTHOPAEDICSStart: 01-19-2024 End: 71-76-6334Thmxcay encounter /03/2024 11:30 AM EST Office Visit [facility] [address] [facility] [place] [address] Pastora Kohler NP [address] [facility] [place] [address] ArrivedNOMS FNR FMComment on above:ArrivedStart: 12-11-2023 End: 63-73-7806Kvoyjlx encounter procedureNOMS ORTHOPAEDICSComment on above: Acute pain of left knee (Primary Dx)Start: 11-20-2023 End: 59-60-6746Jldcycf encounter irbidldih17/04/2024 9:00 AM EDT Office Visit [facility] [address] [place] [address] Lauren Torres PA [address] [facility] [address] [place] [address] Acute pain of left knee (Primary Dx)[facility] Comment on above:Acute pain of left knee (Primary Dx)Start: 86-07-2667Omvlbvhmy vaccinationTrumbull Regional Medical Center SystemStart: 34-61-8364Zagbmuavkj A1c measurement Diabetes: Hemoglobin B9FCWWT HealthcareStart: 06-30-2023 End: 80-93-4051Uomopjo encounter pxkxvockh81/14/2024 8:30 AM EDT Office Visit [facility] [address] [place] [address] Nishi High PA [address] [place] [address] [facility] - Medical OncologyStart: 06-15-2023 End: 09-87-8934Hlxjlvuai to same day surgery rygblo9706/15/2023 2:00 PM EDT - 06/15/2023 4:30 PM EDT Surgery [facility] - Surgery [address] [place] [phone] Edwin Moreno MD [address] [facility] [address] [place] [address] DAVINCI HYSTERECTOMY SALPINGO OOPHORECTOMYProSt. Mary'S Medical Centerca [facility] - SurgeryComment on above:DAVINCI HYSTERECTOMY SALPINGO OOPHORECTOMYStart: 06-15-2023 End: 64-20-6961HWDAXMM DISSECTION LYMPH NODE PELVIC SENTINELDAVINCI DISSECTION LYMPH NODE PELVIC SENTINEL ENDOMETRIAL CANCER 06/15/2023 2:00 PM EDCommunity Healthtart: 06-15-2023 End: 90-95-6347MVEJEOR HYSTERECTOMY SALPINGO OOPHORECTOMYDAVINCI HYSTERECTOMY SALPINGO OOPHORECTOMY ENDOMETRIAL CANCER 06/15/2023 2:00 PM EDCommunity Healthtart: 99-68-4686Qxbskwkcsd hospital visit by unsczddah28/29/2024 2:00 PM EDT Hospital Encounter [facility] Surgery [address] [place] [phone] Edwin Moreno MD [address] [facility] [place] [address] [facility] SurgeryStart: 06-05-2023 End: 94-23-2866Jklzvgkjj to bnprzosbxnzmu03/19/2024 2:45 PM EDT Support Visit [facility] [address] [address]IdgLpvnfc [facility] On [facility] Start: 85-06-9641Jeocoy Wellness Visit (Medicare Advantage)Annual Wellness Visit (Medicare Advantage)[facility]Start: 24-29-8338NNWGQ-19 Vaccine ( season)COVID-19 Vaccine ( season)[facility] Start: 23-49-4371YalavevreSt. Anthony's Hospitaltart: 40-92-3627Qmalfckcwdta axial tomography of lumbar spine with contrastScci Hospital Lima Start: 17-62-8180Lldqckrfs for malignant neoplasm of breastBreast cancer screen [facility]: 33-48-7394Gupxdyuvvwp Syncytial Virus (RSV) or age 60 yrs+ (1 - 1-dose 60+ series)Respiratory Syncytial Virus (RSV) or age 60 yrs+ (1 - 1-dose 60+ series)[facility]: 46-64-1878Tfdiftbvaxsfvd of varicella zoster vaccineZoster (Shingles) Vaccine (1 of 2)[facility]elltart: 95-22-2855Miphwcmn vaccine (1 of 2)Shingles vaccine (1 of 2)[facility]: 35-34-5951Bqhmozhpt for malignant neoplasm of colonBON MERCY HEALTH URBANA HOSPITALStart: 32-04-7502Qouhhvvrq for malignant neoplasm of cervixPap SmearMission [facility] 1979 Administration of varicella zoster vaccineZoster (Shingles) Vaccine (1 of 2) [facility]: 39-05-0784IWqY,Tdap and Td Vaccines (1 - Tdap) DTaP,Tdap and Td Vaccines (1 - Tdap)[facility] [place]: 1979 DTaP/Tdap/Td vaccine (1 - Tdap)DTaP/Tdap/Td vaccine (1 - Tdap)[facility]: 60-16-5453Vythp screening for proteinDiabetes: Urine Protein ScreeningChristian HospitalStart: 60-79-0761Sacbs BMI Follow Up PlanAdult BMI Follow Up [facility]: 40-65-4136TLM test (Diabetes, CKD 3- 4, OR last GFR 15-59)GFR test (Diabetes, CKD 3-4, OR last GFR 15-59)[facility]: 83-86-6363Bodizgur screeningDiabetic retinal examRetreat Doctors' Hospitalart: 39-14-6649Yucfxrbie C screeningHepatitis C screenRetreat Doctors' Hospitalart: 18-22-3543Dodlr screening for proteinDiabetic Alb to Cr ratio (uACR) testBON [facility] Centerart: 59-66-9989LYT screeningHIV screenRetreat Doctors' Hospitalart: 90-22-9573Zboszvdcsq MonitoringDepression Monitoring [facility]: 65-67-0179Haixrwjafs ScreeningDepression ScreeningM[facility] [place]: 94-90-4085Wzyefxdc foot examination Diabetic foot examRetreat Doctors' Hospitalart: 07-93-5005Dlrlntdujxey 0-64 years Vaccine (1 of 2 - PCV)Pneumococcal 0-64 years Vaccine (1 of 2 - PCV)[facility]: 01-[facility]1961Medicare Annual Wellness (AWV)Medicare Annual Wellness (AWV)[facility] HealthcareStart: 24-05-6857Fjlaefqgz for malignant neoplasm of colonNOMS HealthcareComprehensive metabolic 2000 panel - Serum or PlasmaScci Hospital LimaOxygen therapy [Minimum Data Set]Initiate Oxygen Therapy Protocol Respiratory Care Routine As Needed until discontinued starting 06/30/2023ON [facility] on above:As Needed until discontinued starting 06/30/2023Oxygen therapy [Minimum Data Set]Initiate Oxygen Therapy Protocol Respiratory Care Routine As Needed until discontinued starting 06/30/2023[facility] on above:As Needed until discontinued starting 06/30/2023atient EducationCarolinaeast Medical Center MyelographySelect [facility] Work Phone: End: 20-74-0997Xbgpgyqtldyc coronary interventionP[facility] Work Phone: Comment on above:One Time for 1 Occurrences starting 06/26/2023 until 06/26/2023XR Hip - left 3 ViewsXR hip left 2 or 3 views Imaging Routine Left [facility] - [facility] 1 or 2 ViewsXR knee 1 or 2 views left Imaging Routine Acute pain of left knee 11/20/2023 9:05 AM [facility] Work Phone: [facility] Immunizations Immunization DateImmunizationNotesCare XcdkoxbuHdalvyex75-04-0931lteanbdey, seasonal, injectable, preservative freeChristy Kohler MEDICAL ANTHROPOLOGY DIRECTOR Work Phone: [facility] HospitalGafowhgcge18-80-3682Tqtmapfubrxp Conjugate PCV 20 Gabe Trujillo MEDICAL ANTHROPOLOGY DIRECTOR Work Phone: [facility] HospitalZgprslrazm21-90-9742kkenfhska virus vaccine, unspecified formulationEdwin Moreno MD Work Phone: [facility] HospitalRyqtxn83-65-3394wujoebujw, injectable, quadrivalent, preservative freeMattjenniferw Brian HILL Work Phone: [facility] HospitalNxakumiimd07-91-0019HHUM-PFZ-9 (COVID-19) vaccine, mRNA, spike protein, LNP, PF, 50 mcg/0.5 mLMattcarmen HILL Work Phone: [facility] HospitalSrndogndwh24-07-7570qbbmofxxh virus vaccine, unspecified formulationPiotr Logan MD Work Phone: bon [facility] HOSPITALPWIZWD67-37-7251bnenjqpns, injectable, quadrivalent, preservative freeMattcarmen HILL Work Phone: [facility] HospitalQqybagvtvk62-49-3120BIAMM-00 Vaccine Moderna - Documentation Purposes OnlyClifford Munoz Jr. Other [facility]03-30-2021COVID-19 Vaccine Moderna - Documentation Purposes OnlyClifford Munoz Jr. Other [facility]10-24-2017influenza virus vaccine, unspecified formulationPiotr Logan MD Work Phone: [facility]ICKWYAPEK17-58-6503xstobnivz, injectable, quadrivalent, preservative freeAdanttcarmen HILL Work Phone: [facility] HospitalAfwecsikyc53-67-1101pvepkwyjt virus vaccine, unspecified formulationPiotr Logan MD Work Phone: [facility] PAT[facility]ICKMKRYWV16-78-9030lgqgxyrfl virus vaccine, unspecified formulationPiotr Logan MD Work Phone: [facility]ICKZFNPUP65-14-5350bdldiqfgc, seasonal, injectable, preservative freeAdanttcarmen HILL Work Phone: [facility] HospitalLydkmfcajs19-50-4159kkgdhaqmp virus vaccine, unspecified formulationPiotr Logan MD Work Phone: [facility]ICKCSCJCU16-99-6193ifhzbdvyk, seasonal, injectableMattjenniferw Brian HILL Work Phone: [facility] Payers DatePayer CategoryPayerPolicy [id number]-juq [id number] (Managed Care) [id number] AARP OPTUMCARE AARP [id number] 2022-Present [address] [address] [place] [id number] [id number].3.449797.315 2018Medicare [id number] 04.03.840.[id number] 2.16.840.1.419617.3.579.[id number] 2.16.840.1.965767.3.579.2.59844-17-6598Tjacjlt1190356 2.16.840.1.330677.3.579.2.45740-98-8128Bmmncvl4046909 2.16.840.1.834465.3.579.2.20177-41-8295Wvakdcv6529364 2.16.840.1.801774.3.579.2.81161-95-4517Eigximt7858854 2.16.840.1.569934.3.579.2.97405-34-6603Svabqbz3183677 2.16.840.1.097327.3.579.2.22890-69-3200Mvqdhsq9092436 2.16.840.1.040820.3.579.2.40499-21-1617Kmfqwxv9798701 2.16.840.1.936096.3.579.2.56124-12-5612Ixevwca36500931 2.16.840.1.937363.3.579.2.328561-78-8865Imlpmcl93718778 2.16.840.1.518565.3.579.2.21342-52-7925Cdifnmw568517637 2.16.840.1.651479.3.579.2.01924-90-0028Yykdbss056117883 2.16.840.1.728371.3.579.2.19896-79-3246Kzcubgj188342866 2.16.840.1.342580.3.579.2.08072-09-6188Ndzqcez431980475 2.16.840.1.326496.3.579.2.71175-47-7726Imfdugs652056893 2.16.840.1.122639.3.579.2.32895-30-9269Vjoakyf287780671 2.16.840.1.303729.3.579.2.90081-37-8815Pwsqlwy088869182 2.16.840.1.966410.3.579.2.15223-29-5823Hdwlvpc631657948 2.16.840.1.286609.3.579.2.45248-75-4027Nufoimw537307183 2.16.840.1.536346.3.579.2.54498-28-6257Yahqsez487473107 2.16840.1.671555.3.579.2.54148-15-5299Tqvqwfs10146694 2.16840.1.753398.3.579.2.78496-60-4313Ribnrfz71348656 2.16840.1.782268.3.579.2.07305-25-5124Fwlvtui413989758 2.16.840.1.310656.3.579.2.489340-17-4794Sgljiyc873690787 2.16840.1.794156.3.579.2.614700-02-1365Wgormzm110957159 2.16840.1.780666.3.579.2.472066-62-9106Gzprvmi76029121 2.16.840.1.760044.3.579.2.504333-62-1560Uprgbbn916313791 2.16840.1.030272.3.579.2.78781-78-3230Rqatvuu95391866 2.16840.1.155685.3.579.2.194080-26-4599Pcspmtv32509534 2.16.840.1.578174.3.579.2.871542-49-2685Lqhwngf73902792 2.16.840.1.395283.3.579.2.558927-57-0208Llbaxnl95613873 2.16.840.1.495054.3.579.2.910099-37-4906Jziclhq36933313 2.16.840.1.426350.3.579.2.143762-58-1157Kxlehjp66312724 2.16.840.1.020069.3.579.2.813447-49-2714Zqhgmwj86622785 2.16.840.1.741788.3.579.2.728505-49-7486Apgzdcu30154930 2.16840.1.670870.3.579.2.243132-52-6955Eaaorig57613703 2.16.840.1.019948.3.579.2.953157-89-4535Vpwmltg62824429 2.16.840.1.419299.3.579.2.997980-59-5721Mfifsot06650013 2.16.840.1.020056.3.579.2.526692-60-1481Xyueflm37803448 2.16.840.1.687154.3.579.2.327474-59-9018Riwefra33401992 2.16.840.1.511376.3.579.2.881556-13-4301Octmtfv5911916 2.16.840.1.972565.3.579.2.818089-24-6954Dxffuab7061129 2.16.840.1.472883.3.579.2.822970-34-7816Qpcaekk7326553 2.16.840.1.160128.3.579.2.558994-46-4281Qidgorp2926800 2.16.840.1.488982.3.579.2.447289-57-4159Dqjnvmy7917888 2.16.840.1.198828.3.579.2.435340-02-4574Rgvcakj3339773 2.16.840.1.978221.3.579.2.420498-45-1064Launobl7511277 2.16.840.1.277592.3.579.2.887391-91-6195Ongaxjf4433731 2.16.840.1.206807.3.579.2.894869-16-8769Eghrgsm8662986 2.16840.1.823549.3.579.2.439686-14-3796Ezluhui2003998 2.16840.1.530301.3.579.2.940337-50-2252Yrqsokk5099006 2.16840.1.787200.3.579.2.862505-26-9838Unyeczr5911735 2.16.840.1.232275.3.579.2.107773-30-7570Fixezni8210519 2.16840.1.037215.3.579.2.994383-83-0438Msgxisc5281940 2.16.840.1.815755.3.579.2.255514-22-6160Tgmjeuh3596293 2.16840.1.438929.3.579.2.545216-36-0683Ttersuc9975642 2.16.840.1.301864.3.579.2.051901-74-2755Jydnptx1261164 2.16.840.1.929349.3.579.2.148624-53-9094Zbiccme9036990 2.0.1.367341.3.579.2.1259 [id number] 2.0.1.012374.19 33-63-8899Uwzvzfv Health [id number] 2.0.1.521087.19UnknownAnthem /[id number] 6699jhfk-[id number]-n8qo-[id number] 2.840.1.935619.3.579.2.398Zeltjbr20239258 2.0.1.116836.3.579.2.531 Iqulllo05118926 2.0.1.696766.3.579.2.531 Social History DateTypeDetailFacilityUnknown if ever smokedNossm [facility] [employer] Other Start: 06-15-2023 End: 65-98-0853Zrq Assigned At [facility] [email or web address] Work Phone: Start: 01-03-2021 End: 80-16-5418Qhiiwlj smoking status NHISEx-smoker (finding)[facility]: 10-64-1922Qbg Assigned At [facility]: 69-45-5745Morhqpj of tobacco useCurrent smokerProDelaware County Hospital System End: 23-03-4101Klqrzwg of tobacco useCigarette SmokerTrumbull Regional Medical Center System Start: 11-03-2022 End: 09-87-5040Bpqukce use and exposureSmokeless tobacco non-userBON [facility]OS[facility]ITALStart: 06-30-2023 End: 24-61-7790Autmcct intakeEx-drinker (finding)[facility]: 06-15-2023 End: 49-30-1561Uyzoewr of Social functionNOSC Healthcare Work Phone: Start: 37-30-6840Egr Assigned At BirthNot on fileCENTRA SOUTHSIDE [facility] MERCY HEALTHStart: 94-23-9941Qvbyqgm smoking status NHISNever smoked tobaccoNOMS HealthcareStart: 51-72-2409Cpcawwv Commentcaffeine: 3-4 cups per day [facility] HealthcareStart: 12-30-2023 End: 53-07-3702OigCaawsv (finding)[facility]art: 50-07-9506Wqutwqosr beverage intakeLifetime non-drinker (finding)[facility] SystemChildcareUnknoChildren's [place] SystemStart: 51-84-5125Vsgvojv Commentcaffeine: 2 cups per dayNOMS HealthcareStart: 83-74-6652Qqxkbkr Comment caffeine: 2-3 cups per dayNOSC HealthcareNEGATED: Highlighted rowStart: NINF History of tobacco usePassive [facility] Medical Equipment Procedure CodeEquipment CodeEquipment Original TextEquipment IdentifierDates Arthroplasty, knee, total, minimally invasiveOrthopaedic cement, non-medicated ()[id number] FDAStart: 41-67-4653Uyswxyzgytvg, knee, total, minimally invasiveUncoated knee femur prosthesis ()[id number] FDAStart: 82-37-9756Xcqvyfappcip, knee, total, minimally invasiveTibial insert()[id number] FDAStart: 41-07-3089Mevewrfcvboh, knee, total, minimally invasivePolyethylene patella prosthesis()[id number] FDAStart: 01-03-2021 Arthroplasty, knee, total, minimally invasiveUncoated knee tibia prosthesis, metallic()[id number](17)[id number](44)[id number] FDAStart: 09-59-28473202055689 Start: 59-60-9258Mstrm Sugar Diagnostic (Accu-Chek Guide Test Strips) strip Start: 21-22-7677Zztgg Sugar Diagnostic (Accu-Chek Guide Test Strips) strip Start: 05-06-2023 End: 55-01-9039Hwykz Sugar Diagnostic (Accu-Chek Guide Test Strips) stripStart: 31-24-9979Lvkmv Sugar Diagnostic (Accu-Chek Guide Test Strips) stripStart: 05-06-2023 End: 45-84-7782Ckecw Sugar Diagnostic (Accu-Chek Guide Test Strips) stripStart: 86-20-9741Tfzprsm (Accu-Chek Fastclix Lancet Drum) miscStart: 39-68-2654Deoih Sugar Diagnostic (Accu-Chek Guide Test Strips) stripStart: 05-06-2023 End: 80-26-1868Irhuk Sugar Diagnostic (Accu-Chek Guide Test Strips) stripStart: 05-06-2023 End: 34-69-8933Uzfmjyh (Accu-Chek Fastclix Lancet Drum) miscStart: 08-03-2023 End: 22-70-0667Lciao Sugar Diagnostic (Accu-Chek Guide Test Strips) stripStart: 48-78-5393Gvcdxhf (Accu-Chek Fastclix Lancet Drum) miscStart: 01-56-9116Aqsdr Sugar Diagnostic (Accu-Chek Guide Test Strips) stripStart: 05-06-2023 End: 81-31-2855Fuhpi Sugar Diagnostic (Accu-Chek Guide Test Strips) stripStart: 05-06-2023 End: 69-47-3497Liooxly (Accu-Chek Fastclix Lancet Drum) miscStart: 08-03-2023 End: 14-66-0817Erqzw Sugar Diagnostic (Accu-Chek Guide Test Strips) stripStart: 86-61-0187Ixtqdtl (Accu-Chek Fastclix Lancet Drum) miscStart: 12-27-4018Oqbvd Sugar Diagnostic (Accu-Chek Guide Test Strips) stripStart: 05-06-2023 End: 01-85-0893Vzvft Sugar Diagnostic (Accu-Chek Guide Test Strips) stripStart: 05-06-2023 End: 20-42-4416Ialxcda (Accu-Chek Fastclix Lancet Drum) miscStart: 08-03-2023 End: 39-24-3546Hgwig Sugar Diagnostic (Accu-Chek Guide Test Strips) stripStart: 54-36-5354Jwdewec (Accu-Chek Fastclix Lancet Drum) miscStart: 53-28-7201Yvx Needle, Diabetic 32 gauge x 1/4 needleStart: 40-43-0270Ljoso Sugar Diagnostic (Accu-Chek Guide Test Strips) stripStart: 05-06-2023 End: 09-23-8394Cblto Sugar Diagnostic (Accu-Chek Guide Test Strips) stripStart: 05-06-2023 End: 07-68-3166Nrcwxsk (Accu-Chek Fastclix Lancet Drum) miscStart: 08-03-2023 End: 82-04-9756Izo Needle, Diabetic 32 gauge x 1/4 needleStart: 05-02-2024 End: 80-52-9805Ztazb Sugar Diagnostic (Accu-Chek Guide Test Strips) stripStart: 20-38-7858Fubckco (Accu-Chek Fastclix Lancet Drum) miscStart: 15-13-4213Xfe Needle, Diabetic 32 gauge x 1/4 needleStart: 07-29-4833Mbpju Sugar Diagnostic (Accu-Chek Guide Test Strips) stripStart: 05-06-2023 End: 69-71-6229Miqyu Sugar Diagnostic (Accu-Chek Guide Test Strips) stripStart: 05-06-2023 End: 56-27-2981Ghrkewm (Accu-Chek Fastclix Lancet Drum) miscStart: 08-03-2023 End: 02-49-8629Pop Needle, Diabetic 32 gauge x 1/4 needleStart: 05-02-2024 End: 13-35-6537Rifhj Sugar Diagnostic (Accu-Chek Guide Test Strips) stripStart: 02-85-2597Tuxefgb (Accu-Chek Fastclix Lancet Drum) miscStart: 75-47-2290Eyc Needle, Diabetic 32 gauge x 1/4 needleStart: 22-88-9801Kfsyy Sugar Diagnostic (Accu-Chek Guide Test Strips) stripStart: 05-06-2023 End: 28-68-2988Stqtm Sugar Diagnostic (Accu-Chek Guide Test Strips) stripStart: 05-06-2023 End: 74-43-4146Zfzoajf (Accu-Chek Fastclix Lancet Drum) miscStart: 08-03-2023 End: 67-26-7547Moq Needle, Diabetic 32 gauge x 1/4 needleStart: 05-02-2024 End: 35-03-8568Zddig Sugar Diagnostic (Accu-Chek Guide Test Strips) stripStart: 53-76-5888Cbanzny (Accu-Chek Fastclix Lancet Drum) miscStart: 95-49-4325Rtf Needle, Diabetic 32 gauge x 1/4 needleStart: 98-55-5143Syxjk Sugar Diagnostic (Accu-Chek Guide Test Strips) stripStart: 05-06-2023 End: 91-41-5609Wrzhe Sugar Diagnostic (Accu-Chek Guide Test Strips) stripStart: 05-06-2023 End: 64-13-4838Cnwqp Sugar Diagnostic (Accu-Chek Guide Test Strips) stripStart: 08-03-2023 End: 93-44-7852Xbhzqfp (Accu-Chek Fastclix Lancet Drum) miscStart: 08-03-2023 End: 30-63-0281Mlsqbev (Accu-Chek Fastclix Lancet Drum) miscStart: 08-03-2023 End: 04-80-3241Axp Needle, Diabetic 32 gauge x 1/4 needleStart: 05-02-2024 End: 05-02-2024 Functional Status WgeqBjvqijieikXupwryOkmfyvkp31-94-4679IYH-5 quick depression assessment panel [Reported.PHQ][facility] HospitalIfbvwwxjoz94-28-6647Jdgiusz Health Questionnaire 2 item (PHQ- 2) [Reported]Christian HospitalItprouhjzz44-87-9739Zxahyew Health Questionnaire 2 item (PHQ- 2) [Reported][facility] HospitalNzpcgxbdvr27-20-9101Rejmsng Health Questionnaire 2 item (PHQ- 2) [Reported]Critical access hospital Clinical Notes 11-21-2020 to 11-22-2024 Note Date & KvytZgdmNzwwuesb35-90-7954 Telephone encounter Note* Telephone Encounter - Rohitbritt Sanford - 11/22/2024 2:13 PM EDT Lesli called asking for a call regarding x-ray results. [phone] Christian HospitalApyompydoq25-81-2754 Miscellaneous Notes* Telephone Encounter - Rohit Tacoderik - 11/22/2024 2:13 PM EDT Lesli called asking for a call regarding x-ray results. [phone] documented in this encounterChristian HospitalPqadxtvskm32-65-6869 History of Present illness Narrative* Pastora Kohler NP - 11/21/2024 4:00 PM EDT Images from the original note were not included. Subjective ?Quick Links Last Note in Specialty Snapshot Edit RFV/CC Edit Screenings Current [facility] Patient ID: Lesli Clay is a 64 [...] Edit History Meds - Accu-Chek FastClix Lancets [facility] Accu-Chek Guide test strip amLODIPine (Norvasc) 5 MG tablet ARIPiprazole (Abilify) 15 MG tablet atorvastatin (Lipitor) 40 MG tablet buPROPion XL (Wellbutrin XL) 300 MG 24 hr tablet ergocalciferol (Vitamin D2) 1.25 MG (22396 UT) capsule hydrOXYzine HCl (Atarax) 25 MG tablet insulin degludec (Tresiba) 100 UNIT/ML injection Klayesta 936109 UNIT/GM powder losartan-hydroCHLOROthiazide (Hyzaar) 50-12.5 MG tablet [...] left 2+ views; Future documented in this [facility]10-04-2025 Telephone encounter Note* Telephone Encounter - Jennifer Cabrera MD - 11/19/2024 1:09 PM EDT Is she taking her metformin? Please check with pharmacy and see when last filled. Christian HospitalSsodchkdha95-44-8830 Miscellaneous Notes* Telephone Encounter - Jennifer Cabrera MD - 11/19/2024 1:09 PM EDT Is she taking her metformin? Please check with pharmacy and see when last filled. documented in this [facility]10-02-2025 History of Present illness Narrative* Jennifer Cabrera MD - 11/17/2024 10:40 AM EDT Subjective [...] Edit History Meds - Accu-Chek FastClix Lancets [facility] Accu-Chek Guide test strip amLODIPine (Norvasc) 5 MG tablet ARIPiprazole (Abilify) 15 MG tablet atorvastatin (Lipitor) 40 MG tablet buPROPion XL (Wellbutrin XL) 300 MG 24 hr tablet ergocalciferol (Vitamin D2) 1.25 MG (04396 UT) capsule hydrOXYzine HCl (Atarax) 25 MG tablet insulin degludec (Tresiba) 100 UNIT/ML injection Klayesta 723379 UNIT/GM powder losartan-hydroCHLOROthiazide (Hyzaar) 50-12.5 MG tablet [...] the sore throat symptoms. documented in this encounterChristian HospitalYpdcngrfcy25-05-0277 History of Present illness Narrative* Gabe Trujillo NP - 09/23/2024 3:30 PM EDT Images from the original note [...] lifting heavy objects. She also mentions occasional swelling,which she managed with ice application last night. 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 - Recommended physical therapy, she declines at this time; ordered x-rays to evaluate the cause of pain; patient will be contacted with results. - Follow up with pain management. documented in this encounterChristian HospitalJhsndxsvmo34-80-7854 History of Present illness Narrative* Gabe Trujillo NP - 09/14/2024 2:00 PM EDT Images from the original note were not included. Lesli Clay is a 64 y.o. female presents with chief complaint of ER Follow-up HPI: Flowsheet Row Office Visit from 09/14/2024 in [facility] with Gabe Trujillo NP Hospital Information ED, Hospital or Fpc Facility Discharge? ED Patient has been contacted within 2 days of being seen in the ED No Have two attempts been made, within 2 days of being seen in the ED, to contact the patient? -- [yes] Diagnosis Cellultis Discharge Date 09/08/24 Discharged To: Home Setting Discharge Hospital [facility] Engagement Admission Date 09/08/24 Medications Discharge medications reviewed and reconciled from hospital? Yes Appointments Does the patient have a primary care provider? Yes Self Management Patient Teaching Does the patient have access to their discharge instructions? Yes Wrap Up ER Follow-up SUBJECTIVE: MEDICATIONS: Current Outpatient Medications Medication Instructions Accu-Chek FastClix Lancets [facility] Accu-Chek Guide test strip amLODIPine (NORVASC) 5 mg, Oral, Daily amoxicillin-clavulanate (Augmentin) 875-125 MG tablet 1 tablet, 2 times daily ARIPiprazole (Abilify) 15 MG tablet Every 24 hours atorvastatin (LIPITOR) 40 mg, Oral, Daily buPROPion XL (Wellbutrin XL) 300 MG 24 hr tablet ergocalciferol (Vitamin D2) 1.25 MG (54179 UT) capsule hydrOXYzine HCl (ATARAX) 25 mg, Every 6 hours PRN insulin degludec (TRESIBA) 48 Units, Subcutaneous, Nightly Klayesta 248005 UNIT/GM powder APPLY EXTERNALLY TO AFFECTED SKIN [...] 1 week to reassess. documented in this encounterChristian HospitalCeaakmyloz94-46-5138 History of Present illness Narrative* Gabe Trujillo NP - 08/30/2024 12:30 PM EDTAssociated Problem(s): Primary hypertension Orders: Comprehensive metabolic panel; [...] compliance discussed. Patient voices understanding of meds. * Gabe Trujillo NP - 08/30/2024 12:30 PM EDTAssociated Problem(s): Type 2 diabetes mellitus with hyperglycemia, [...] include blindness, heart disease and kidney disease. * Gabe Trujillo NP - 08/30/2024 12:30 PM EDTAssociated Problem(s): Mixed hyperlipidemia Orders: Lipid panel; Future -on a statin * Gabe Trujillo NP - 08/30/2024 12:30 PM EDTAssociated Problem(s): Recurrent major depressive disorder, in partial remission -manage by psych * Gabe Trujillo NP - 08/30/2024 12:30 PM EDTAssociated Problem(s): USP (current) use of insulin (HCC) * Gabe Trujillo NP - 08/30/2024 12:30 PM EDTAssociated Problem(s): Chronic kidney disease, stage 2 (mild) -drink plenty of fludis. Good control of DM and HTN. * Gabe Trujillo NP - 08/30/2024 12:30 PM EDTAssociated Problem(s): Chronic pain disorder -managed by pain management * Gabe Trujillo NP - 08/30/2024 12:30 PM EDT Images from the original note [...] leg for the past 2 weeks. The painis primarily localized to the side of her hip, with some discomfort extending down her leg. She also reports spasms in her leg. She is uncertain if it is related to the sciatic nerve. She has not undergone physical therapy for her hip due to financial constraints. She is currently under the care ofa ship painter helper and takes medication, but it does not seem to alleviate the pain. She takes iyuj-gsx-qxdmhnu Motrin 3 times daily, including once at night with her other medications. Sheis scheduled to see her ship painter helper in either September or October 2024, as she has ap pointments every 3 months. She has had several [...] for colon cancer screening but prefers not todo that as she is too scared. She [...] dental exam. Vaccines and cancer screens reviewed forcompleteness. Screen labs as needed. Assessed needs for tools in the home for independence. Living will and durable power of transliterator reviewed. Updated patient problem list and reviewed [...] hyperglycemia, with long-term current use of insulin ([facility]) Orders: Comprehensive metabolic panel; Future [...] uterine cancer -managed by oncology Mor[place] [place]: Comprehensive metabolic panel; Future Lipid panel; [...] disorder, in partial remission -manage by psych 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 ([facility]) Chronic kidney disease, stage 2 [...] to assess A1c, cholesterol, kidney function, electrolytes, andthyroid levels. If A1c is <7, a course of steroids may be considered for additional relief. 2. Diabetes mellitus. - Blood sugar levels at home range between 100 and 150. - Blood work will be conducted today to assess A1c, cholesterol, kidney function, electrolytes, andthyroid levels. - If A1c is <7, a [...] will be administered today. documented in this encounterChristian [id number] History of Present illness Narrative* SERGIO Iglesias - 08/24/2024 8:30 AM EDT Images from the original note were not included. Orthopedic Office note: NAME: Lesli Clay : 1960 EST PT S/P RT SHOULDER SCOPE 06/17/24 (9 WKS 5 DAYS) @ [facility]- CONTINUES HEP; PT ADMITS TO NOT DOING HEP FAITHFULLY - NOTES GOOD IMPROVEMENT- NOTES PAIN TOP OF SHOULDER WITH CERTAIN MOVEMENTS- INCREASE ROM- +PERCOCET/MOTRIN; PER YOANNA Right Shoulder Exam Tenderness The patient is [...] sciatica. She is advised to consult her [place] pain management provider if needed or primary care physician if her symptoms persist or worsenfor further evaluation, considering her current pain medication [...] requiring urgent evaluation. Visit was preformed using [facility] [employer] speech recognition. documented in this encounterChristian [id number] Telephone encounter Note* Telephone Encounter - SERGIO Iglesias - 08/02/2024 1:00 PM EDT Reviewed Xrays- (R) knee and shoulder- no obvious fracture.... Pt's spouse also had MRI done..- Will call to discuss results. Spoke with pt. Reports she fell on right side, hit knee cap.. will focus on ice and rest.. shoulderis sore... formal radiology reads pending.... will keep scheduled follow up for now. Christian [id number] Miscellaneous Notes* Telephone Encounter - SERGIO Iglesias - 08/02/2024 1:00 PM EDT Reviewed Xrays- (R) knee and shoulder- no obvious fracture.... Pt's spouse also had MRI done..- Will call to discuss results. Spoke with pt. Reports she fell on right side, hit knee cap.. will focus on ice and rest.. shoulderis sore... formal radiology reads pending.... will keep scheduled follow up for now. * Telephone Encounter - Saundra Philip - 08/02/2024 10:00 AM EDT Patient's called to let us know she did have xrays done today at her appt for her knee and shoulder. * Telephone Encounter - Saundra Philip - 08/01/2024 12:57 PM EDT Patient's called in stating patient fell on her right arm today and paramedics thinks she should be seen sooner. She is scheduled with you 08/24 in [place]. There is no earlier openings. Please advise. documented in this encounterChristian [id number] Telephone encounter Note* Telephone Encounter - Saundra Philip - 08/02/2024 10:00 AM EDT Patient's called to let us know she did have xrays done today at her appt for her knee and shoulder. [facility] [id number] History of Present illness Narrative* Pastora Kohler, MEDICAL ANTHROPOLOGY DIRECTOR - 08/02/2024 9:30 AM EDT Images from the original note were not included. Lesli Clay is a 64 y.o. female presents with chief complaint of Knee Injury HPI: HPI Patient is present with c/o right knee injury after falling yesterday. Patient also injured herright shoulder. Patient states that she had surgery on her right shoulder on June 17. She states that she contacted her ortho office, but they are unable to get her in soon so they advised that she get an x-ray done through her PCP. SUBJECTIVE: MEDICATIONS: Current Outpatient Medications Medication Instructions Accu-Chek FastClix Lancets [facility] Accu-Chek Guide test strip ARIPiprazole (Abilify) 15 MG tablet Every 24 hours ARIPiprazole (ABILIFY) 10 mg, Daily atorvastatin (LIPITOR) 40 mg, Oral, Daily buPROPion XL (Wellbutrin XL) 300 MG 24 hr tablet ergocalciferol (Vitamin D2) 1.25 MG (04200 UT) capsule hydrOXYzine HCl (ATARAX) 25 mg, Every 6 hours PRN insulin degludec (TRESIBA) 48 Units, Subcutaneous, Nightly Klayesta 879362 UNIT/GM powder APPLY EXTERNALLY TO AFFECTED SKIN [...] mg) by mouth Daily documented in this encounterChristian HospitalPaglsgklgy02-04-5099 Telephone encounter Note* Telephone Encounter - Saundra Philip - 08/01/2024 12:57 PM EDT Patient's called in stating patient fell on her right arm today and paramedics thinks she should be seen sooner. She is scheduled with you 08/24 in [place]. There is no earlier openings. Please advise. Christian [id number] History of Present illness Narrative* SERGIO Iglesias - 07/20/2024 8:30 AM EDT [...] requiring urgent evaluation. Visit was preformed using [facility] [employer] speech recognition. documented in this encounterChristian [id number] History of Present illness Narrative* SERGIO Iglesias - 07/01/2024 10:00 AM EDT Images from the original note [...] requiring urgent evaluation. Visit was preformed using [facility] [employer] speech recognition. documented in this [facility]05-16-2025 Instructions* Patient Instructions* SERGIO Iglesias - 07/01/2024 10:00 AM EDT [...] call Therapy facility to schedule as soon aspossible documented in this encounterChristian HospitalPkupazbizu57-18-4587 History of Present illness Narrative* SERGIO Iglesias - 06/21/2024 11:15 AM EDT Images from the original note [...] requiring urgent evaluation. Visit was preformed using [facility] [employer] speech recognition. documented in this encounterChristian HospitalDpgnicnfvy94-11-2353 Note [id number]05-02-2025 [facility] SURGERY Clinical Discharge Summary PERSON INFORMATION Name LESLI CLAY Age 64 Years 1960 Sex FEMALE Language Persian PCP JENNIFER CABRERA Marital Status Phone Med Service Ambulatory Surgery N 19-07-02 Acct# Arrival 06/17/2024 10:32:36 Visit Reason SURGERY - RIGHT SHOULDER ARTHROSCOPY WITH ROTATOR CUFF REPAIR AND BICEP TENODESIS Acuity LOS 052 05:37 Address: [address] [place] [address] Comment: PROVIDER INFORMATION VITALS INFORMATION Vital Sign Triage Latest Temp Oral Temp Temporal Temp Intravascular Temp Axillary Temp Rectal 02 Sat 87 % 95 % Respiratory Rate Peripheral Pulse Rate Apical Heart Rate Blood Pressure / 123 mmHg / 78 mmHg Comment: MEDICAL INFORMATION Allergy Info: No known allergies Prescriptions Given: acetaminophen-oxycodone (acetaminophen-oxycodone 325 mg-7.5 mg oral tablet) 1 tab(s) Oral (given bymouth) 3 times per day as needed as [...] 12.5 mg-50 mg oral tablet) 1 tab(s) Oral(given by mouth) every day. hydrOXYzine (hydrOXYzine hydrochloride [...] mg oral tablet) 1 tab(s) Oral (given bymouth) 3 times per day as needed as [...] 12.5 mg-50 mg oral tablet) 1 tab(s) Oral(given by mouth) every day. hydrOXYzine (hydrOXYzine hydrochloride [...] mg oral tablet) 1 tab(s) Oral (given bymouth) 3 times per day as needed as [...] 12.5 mg-50 mg oral tablet) 1 tab(s) Oral(given by mouth) every day. hydrOXYzine (hydrOXYzine hydrochloride [...] pregabalin (pregabalin 100 mg (more content not included)...[facility] 06-16-2024 Telephone encounter Note* Telephone Encounter - Ilan Mar NP - 06/16/2024 12:53 PM EDT PDMP reviewed. Patient takes 7.5mg oxycodone 3x a day. [facility] [email or web address] Work Phone: 1(482) 821-324905-01-2025 Miscellaneous Notes* Telephone Encounter - Ilan Mar NP - 06/16/2024 12:53 PM EDT PDMP reviewed. Patient takes 7.5mg oxycodone 3x a day. documented in this encounterChristian [id number] History of Present illness Narrative* Jennifer Cabrera MD - 06/14/2024 10:00 AM EDT Images from the original note were not included. Lesli Clay is a 64 y.o. female presents with chief complaint of Rt shoulder replacement06/17/24 at [facility]. EKG and labs done on 06/01/24. HPI: HPI History of Present Illness The patient presents for a preoperative evaluation for shoulder replacement surgery. She is scheduled for a shoulder replacement [facility] No chest pain or shortness of [...] was surgically excised in 07/2023, is reported. Follow-upwith the oncologist continues, and all subsequent evaluations [...] nortriptyline. Chronic pain is managed by a ship painter helper. Tizanidine is taken once at [...] Outpatient Medications Medication Instructions Accu-Chek FastClix Lancets [facility] Accu-Chek Guide test strip ARIPiprazole (Abilify) 15 MG tablet Every 24 hours ARIPiprazole (ABILIFY) 10 mg, Daily atorvastatin (LIPITOR) 40 mg, Oral, Daily buPROPion XL (Wellbutrin XL) 300 MG 24 hr tablet ergocalciferol (Vitamin D2) 1.25 MG (41047 UT) capsule hydrOXYzine HCl (ATARAX) 25 mg, Every 6 hours PRN insulin degludec (TRESIBA) 48 Units, Subcutaneous, Nightly Klayesta 073034 UNIT/GM powder APPLY EXTERNALLY TO AFFECTED SKIN [...] this visit, decreasing from the 160s to [id number], suggesting anxiety-related elevation. - No chest pain [...] day. - Pain management regimen prescribed by ship painter helper. - Continue current medications and [...] (CMS/HCC) Stage 3a chronic kidney disease (HCC) ([facility]/HCC) Other Visit Diagnoses Preoperative clearance Patient is an acceptable risk for surgery based on their history, physical examination and preop testing. They are performing at least 4 METS of physical activity at home. They understand there are always risks of surgery and anesthesia, but no further testing or treatment is needed for optimization prior to surgery. documented in this encounterChristian [id number] History of Present illness Narrative* Gabe Trujillo NP - 06/10/2024 11:30 AM EDT Images from the original note [...] Outpatient Medications Medication Instructions Accu-Chek FastClix Lancets [facility] [place] Accu-Chek Guide test strip ARIPiprazole (Abilify) 15 MG tablet Every 24 hours atorvastatin (LIPITOR) 40 mg, Oral, Daily buPROPion XL (Wellbutrin XL) 300 MG 24 hr tablet ergocalciferol (Vitamin D2) 1.25 MG (85131 UT) capsule hydrOXYzine HCl (ATARAX) 25 mg, Every 6 hours PRN insulin degludec (TRESIBA) 48 Units, Subcutaneous, Nightly Klayesta 368224 UNIT/GM powder APPLY EXTERNALLY TO AFFECTED SKIN [...] SURGERY 2016 x2 Rods and Screws at [place] SECTION, LOW TRANSVERSE x 3 DILATION AND CURETTAGE DILATION AND CURETTAGE OF UTERUS 05/22/2023 hysteroscopy with myosure HYSTERECTOMY LUMBAR FUSION 2010 Dr. Ken NECK SURGERY 2009 C5-C6 Neck - Dr. Ken NM ARTHROSCOPY KNEE DIAGNOSTIC W/WO SYNOVIAL BX SPX Left 2011 @[place]? [place] TOTAL KNEE ARTHROPLASTY Right 10/2017 Dr. [...] symptoms persist or worsen. documented in this encounterChristian [id number] History of Present illness Narrative* SERGIO Iglesias - 05/31/2024 2:30 PM EDT Images from the original note were not included. GENERAL HISTORY AND PHYSICAL: NAME: Lesli Clay : 1960 HISTORY OF PRESENT ILLNESS: Lesli Clay is an 64 y.o. @ female. Here for surgery instructions H&P right shoulderscope @ [facility]. PAST MEDICAL HISTORY: Past Medical History: Diagnosis Date Abdominal pain Anxiety Cellulitis R foot 08/2016 COVID 02/2020 DENIES BLOODBORNE DX Depression (CMS/HCC) Diabetes (CMS/HCC) Endometrial cancer (CMS/HCC) GERD (gastroesophageal reflux disease) HTN (hypertension) (CMS/HCC) Hyperlipidemia (CMS/HCC) Osteoarthritis RSD (reflex sympathetic dystrophy) PAST SURGICAL HISTORY: Past Surgical History: Procedure Laterality Date BACK SURGERY 2016 x2 Rods and Screws at [place] SECTION, LOW TRANSVERSE x 3 DILATION AND CURETTAGE DILATION AND CURETTAGE OF UTERUS 05/22/2023 hysteroscopy with myosure HYSTERECTOMY LUMBAR FUSION 2010 Dr. Ken NECK SURGERY 2009 C5-C6 Neck - Dr. Ken NM ARTHROSCOPY KNEE DIAGNOSTIC W/WO SYNOVIAL BX SPX Left 2011 @[facility]? [place] TOTAL KNEE ARTHROPLASTY Right 10/2017 Dr. Blake ROTATOR CUFF REPAIR Left 2007 DR. RODRIGUEZ ROTATOR CUFF REPAIR Right 2009 DR. RODRIGEUZ TRIGGER FINGER RELEASE Right 04/25/2022 RT IF [...] Outpatient Medications Medication Instructions Accu-Chek FastClix Lancets [facility] [place] Accu-Chek Guide test strip ARIPiprazole (Abilify) 15 MG tablet Every 24 hours atorvastatin (LIPITOR) 40 mg, Oral, Daily buPROPion XL (Wellbutrin XL) 300 MG 24 hr tablet ergocalciferol (Vitamin D2) 1.25 MG (46528 UT) capsule hydrOXYzine HCl (ATARAX) 25 mg, [...] surgery received. All questions answered and proposed surgeryscheduled. PRE OP SURGERY INSTRUCTIONS May @ 2:30PM PRE OP TESTING SUSIE May @ 12:00 LAST OZEMPIC DOSE May ARTHREX NOTIFIED AUTH RECIEVED No follow-ups on file. documented in this encounterChristian [id number] Evaluation note* Diagnosis Onset Date Resolution Status Admit Date Dietary counseling and surveillance acuteApril 2024 9:32amEncounter for long-term (current) insulin useacute May 25, 2024 9:32amHyperlipemiaacuteApril 2024 9:32amHypertensionacute May 25, 2024 9:32amType 2 diabetes mellitus with hyperglycemiaacuteApril 2024 9:32amVitamin D deficiency, unspecifiedacuteApril 2024 9:32am [facility] Work Phone: 1(457) 997-598304-07-2025 History of Present illness Narrative* Blane Pino [...] poor quality slip on shoes; recently purchased [employer] footwear with memory foam, which has been [...] Rfl: 0 ergocalciferol (Vitamin D2) 1.25 MG (83353 UT) capsule, TAKE 1 CAPSULE BY MOUTH [...] SURGERY 2016 x2 Rods and Screws at [place] SECTION, LOW TRANSVERSE x 3 DILATION AND CURETTAGE DILATION AND CURETTAGE OF UTERUS 05/22/2023 hysteroscopy with myosure LUMBAR FUSION 2010 Dr. Ken NECK SURGERY 2009 C5-C6 Neck - Dr. Ken NM ARTHROSCOPY KNEE DIAGNOSTIC W/WO SYNOVIAL BX SPX Left 2011 @[place]? NM TOTAL KNEE ARTHROPLASTY Right 10/2017 Dr. [...] understanding. Blane Pino DPM documented in this encounterChristian [id number] Instructions* Patient Instructions* Blane Pino DPM - 05/23/2024 1:30 PM EDT As noted documented in this encounterChristian [id number] History of Present illness Narrative* Jr. Akash Rodriguez, - 04/26/2024 8:45 AM EDT Images [...] VISIT WITH INSTRUCTION ON HEP) PAIN MANAGEMENT @[facility] NO IMPROVEMENT. PAIN LATERAL AND ANTERIOR SHOULDER. [...] for claustrophobia ergocalciferol (Vitamin D2) 1.25 MG (74468 UT) capsule TAKE 1 CAPSULE BY MOUTH [...] Use - Medium Risk (04/11/2024) Received from [facility] Patient History Smoking Tobacco Use: [...] for requiring urgent evaluation. documented in this encounterChristian [id number] Telephone encounter Note* Telephone Encounter - Gabe Trujillo NP - 04/18/2024 2:11 PM EST Can you please get her schedule for DM appointment next week, she is due to have her A1c rechecked [facility] Work Phone: 1(971) 476-413503-03-2025 Miscellaneous Notes* Telephone Encounter - Gabe Trujillo NP - 04/18/2024 2:11 PM EST Can you please get her schedule for DM appointment next week, she is due to have her A1c rechecked documented in this encounterChristian [id number] History of Present illness Narrative* Alexandra Osorio [...] of asthma. She has been self-medicating with eblu-fgc-hdierpy cough and cold medications but did not take any such medication yesterday. Her blood pressure was recorded as 232/109 during a recent visit to her cosmetic assembler in [place], prompting a recheck post-examination, which yielded a [...] for claustrophobia ergocalciferol (Vitamin D2) 1.25 MG (31586 UT) capsule TAKE 1 CAPSULE BY MOUTH [...] RODRIGUEZ ROTATOR CUFF REPAIR Right 2009 DR. STEPANIC TRIGGER FINGER RELEASE Right 04/25/2022 RT IF [...] mononeuropathy, with long-term current use of insulin ([facility]) SOB (shortness of breath) - [...] 232/109 during a recent visit to her cosmetic assembler.It is possible that her bsiw-ayi-nhtcyhf cough and cold medication, if containing DM, could have contributed to the elevation in her blood pressure. She is advised to monitor her blood pressure at home on a weekly basis and report any readings exceeding 150/90. She is also reminded to adhere to herdaily antihypertensive medication regimen and maintain adequate hydration. No follow-ups on file. documented in this encounterChristian [id number] History of Present illness Narrative* Sean Tineo, [...] be ind with HEP for maintenance at [place] and able to avoid further intervention Pt [...] Please sign below. Date: documented in this encounterChristian [id number] History of Present illness Narrative* Jr. Akash Rodriguez, - 03/16/2024 9:00 AM EST Images from the original note were not included. HISTORY OF PRESENT ILLNESS: EST PT Lesli Clay is an 64 y.o. @ female. (EST PT) - S/P MRI (03/10/24) , HERE FOR RESULTS ; RT SHOULDER PAIN (~4 MONTHS) (NOV 2023) XRAY RT SHOULDER EPIC 12/29/23 MRI (03/10/24) CORTISONE INJX (AC) 12/29/23 NO MDP/PREDNISONE NO PT PAIN MANAGEMENT @[facility] STATES SHOULDER IS FEELING WORSE. PAIN [...] for claustrophobia ergocalciferol (Vitamin D2) 1.25 MG (18375 UT) capsule TAKE 1 CAPSULE BY MOUTH [...] Use - Medium Risk (01/05/2024) Received from [facility] Patient History Smoking Tobacco Use: Former [...] - 2024 12:47 PM EST Refills sent. Christian HospitalAvbrkjkzfe40-21-1263 Miscellaneous Notes* Telephone Encounter - Jennifer Cabrera MD - 2024 12:47 PM EST Refills sent. documented in this [facility]01-18-2025 Telephone encounter Note* Telephone Encounter - Alexandra Osorio NP - 03/05/2024 9:01 AM EST Please call and request her records from Lili Burgos NP at [facility] for her diabetes. [place] [id number] Miscellaneous Notes* Telephone Encounter - Alexandra Osorio NP - 03/05/2024 9:01 AM EST Please call and request her records from Lili Burgos NP at [facility] for her diabetes. documented in this encounterChristian [id number] History of Present illness Narrative* Comfort French [...] for claustrophobia ergocalciferol (Vitamin D2) 1.25 MG (15307 UT) capsule TAKE 1 CAPSULE BY MOUTH [...] She is under the care of an proof inspector for her diabetes management. Her most recent ylexirfpqdY6w level was either 7.9 or 8, indicating [...] for claustrophobia ergocalciferol (Vitamin D2) 1.25 MG (95471 UT) capsule TAKE 1 CAPSULE BY MOUTH [...] mononeuropathy, with long-term current use of insulin ([facility]) Skin rash Assessment & Plan [...] 8, indicating suboptimal control. Records from her proof inspector will be requested to review her recent A1c levels and overall management plan. No follow-ups on file. documented in this encounterChristian [id number] Telephone encounter Note* Telephone Encounter - Omaira Estrada - 03/02/2024 1:20 PM EST Patient notified Christian HospitalRvceehhkgx97-98-9246 Miscellaneous Notes* Telephone Encounter - Omaira Estrada - 03/02/2024 1:20 PM EST Patient notified * Telephone Encounter - SERGIO Iglesias - 03/02/2024 12:38 PM EST Rx sent to pharmacy, please notify pt. She can not drive with medication and can't work after taking them.. will need a haul driver too and from MRI appt. * [...] would like to try that. She uses [employer] [place]. Her call back is [phone]. Please advise, thank you documented in this encounterChristian HospitalXmlnomfixt64-93-8776 Telephone encounter Note* Telephone Encounter - SERGIO Iglesias - 03/02/2024 12:38 PM EST Rx sent to pharmacy, please notify pt. She can not drive with medication and can't work after taking them.. will need a haul driver too and from MRI appt. Christian HospitalXmtxnwbkli29-41-6971 Telephone encounter Note* Telephone Encounter - Omaira Estrada - 03/02/2024 10:31 AM EST Patient called asking about medication for MRI for claustrophobia. Patient states she has tried the pills for premed (possibly Xanax but she isn't sure) and they did not help her. Patient states another medication was discussed in office and she would like to try that. She uses [employer] [place]. Her call back is [phone]. Please advise, thank you [facility] [id number] History of Present illness Narrative* Alexandra Osorio, MEDICAL ANTHROPOLOGY DIRECTOR - 02/29/2024 4:30 PM EST Images from [...] She is under the care of an proof inspector, Dr. Burgos, at [facility] for her diabetes management. Her last consultation [...] tablet daily ergocalciferol (Vitamin D2) 1.25 MG (53736 UT) capsule TAKE 1 CAPSULE BY MOUTH [...] mononeuropathy, with long-term current use of insulin ([facility]) Symptoms are likely related to diabetic neuropathy. She does see Lili Burgos at [facility] for diabetes and had an A1C in [...] and agreed to plan. documented in this encounterChristian HospitalRdeflwjzxx05-24-1016 History of Present illness Narrative* SERGIO Iglesias [...] tablet daily ergocalciferol (Vitamin D2) 1.25 MG (61537 UT) capsule TAKE 1 CAPSULE BY MOUTH [...] Use - Medium Risk (01/05/2024) [facility] Patient History Smoking Tobacco Use: Former Smokeless [...] s/p MRI to discuss need for possible: Jessica procedure. R/o re-tear of cuff with calcificic [...] The possibility of conducting the MRI at [facility] with potential IM sedation was considered, and [...] for requiring urgent evaluation. documented in this encounterChristian [id number] History of Present illness Narrative* Pastora Kohler, [...] tablet daily ergocalciferol (Vitamin D2) 1.25 MG (49185 UT) capsule TAKE 1 CAPSULE BY MOUTH [...] office tomorrow in improvement. documented in this encounterChristian HospitalIepgmfwicl50-71-7625 Evaluation note* Diagnosis Onset Date Resolution Status Admit Date Dietary counseling and surveillance acuteNovember 2023 9:39amEncounter for long-term (current) insulin use acuteNovember 2023 9:39amHyperlipemiaacuteNovember 2023 9:39am HypertensionacuteNovember 2023 9:39amType 2 diabetes mellitus with hyperglycemiaacuteNovember 2023 9:39amVitamin D deficiency, unspecified acuteNovember 2023 9:39am [facility] Work Phone: 1(104) 194-680611-12-2024 History of Present illness Narrative* SERGIO Iglesias [...] tablet daily ergocalciferol (Vitamin D2) 1.25 MG (10417 UT) capsule TAKE 1 CAPSULE BY MOUTH [...] Use - Medium Risk (12/10/2023) Received from [facility] Patient History Smoking Tobacco Use: [...] for requiring urgent evaluation. documented in this encounterChristian HospitalIpqandfxzz61-95-2911 History of Present illness Narrative* SERGIO Iglesias - 12/11/2023 10:15 AM EDT Images from the original note were not included. HISTORY OF PRESENT ILLNESS: EST PT Lesli M Jarekangelita is an 63 y.o. @ female. EST [...] tablet daily ergocalciferol (Vitamin D2) 1.25 MG (84274 UT) capsule TAKE 1 CAPSULE BY MOUTH [...] for requiring urgent evaluation. documented in this encounterChristian HospitalZuxxaqtofw90-14-2280 History of Present illness Narrative* SERGIO Iglesias [...] tablet daily ergocalciferol (Vitamin D2) 1.25 MG (08643 UT) capsule TAKE 1 CAPSULE BY MOUTH [...] Use - Medium Risk (09/09/2023) Received from [facility] Patient History Smoking Tobacco Use: [...] for requiring urgent evaluation. documented in this encounterChristian [id number] Hospital Discharge instructions* Discharge Instructions* Gladys Frias [...] unless otherwise instructed. documented in this encounterBON [facility] History of Present illness Narrative* Gladys Frias RN - 06/30/2023 11:16 AM EDT Patient admitted, consent signed and questions answered. Patient ready for procedure. Call light toreach with side rails up 2 of 2. Bilateral groin clipped with service writer advisor and Gabrielle NGUYEN present. Salvador at bedside with patient. History and physical needs updated. documented in this encounterPION[facility] Miscellaneous Notes* Telephone Encounter - Liat Camejo - 06/04/2023 2:58 PM EDT Customer Response Representative rec'd VM from [facility] in precert stating Dr. Moreno/Andre is out network with this patient insurance and procedure will not be covered, however, pt insurance covers [facility]. Customer Response Representative called over to [facility] Assistant Center Director/Onc regarding patient to see if they could see this patient and take over care, theyrequested all information be faxed to their office and they will reach out to patient. Customer Response Representative did notify patient we had to cx procedure and all upcoming appts, referral was sent over to [facility] tanning wheel operator/onc, pt voices understanding and service writer advisor advised pt to call our office back if she has any problems getting established with another provider, pt voices understanding. documented in this encounterMer[facility] Telephone encounter Note* Telephone Encounter - Liat Camejo - 06/04/2023 2:58 PM EDT Customer Response Representative rec'd VM from [facility] in precert stating Dr. Moreno/Andre is out network with this patient insurance and procedure will not be covered, however, pt insurance covers [employer]. Customer Response Representative called over to [facility] Assistant Center Director/Onc regarding patient to see if they could see this patient and take over care, theyrequested all information be faxed to their office and they will reach out to patient. Customer Response Representative did notify patient we had to cx procedure and all upcoming appts, referral was sent over to [facility] tanning wheel operator/onc, pt voices understanding and service writer advisor advised pt to call our office back if she has any problems getting established with another provider, pt voices understanding. [employer] [id number] History of Present illness Narrative* Edwin Moreno [...] Date Anxiety Arthritis Cellulitis Depression Diabetes mellitus ([facility]) Diabetes mellitus type 2, controlled ([facility]) Fibromyalgia, primary GERD (gastroesophageal reflux disease) Hyperlipidemia [...] recurrent major depressive disorder, without psychotic features [place] Cellulitis of right lower extremity Endometrial cancer [place] BMI 50.0-59.9, adult [place] Plan: 1. The patient has a documented [...] procedures Referring and communicating with other health healthcare administration internship (not separately reported) Documenting clinical information in the electronic or other health record Edwin Moreno MD documented in this encounterBarre City HospitalSocialance [id number] Evaluation note* Author Kaya Tomlinson [facility] 2023 11:54am Patient here today for an [...] for Bella CGM will be sent to [facility] to determine cost for CGM. Patient provided contact number for [facility]. If pt is unable to afford CGM, pt instructed to continue use of her personal meter. Pt to return in 2 weeks for download with consumer educator and in approximately 4 week follow up with provider. Encouraged to return for follow up visit. 45 minutes spent on education with Jodi DAIGLE RN. [facility] Work Phone: [phone]) 754-125402-20-2024 Evaluation note* Author Kaya Davi [facility] 11:54am Patient here today for an [...] for Bella CGM will be sent to [facility] to determine cost for CGM. Patient provided contact number for [facility]. If pt is unable to afford CGM, pt instructed to continue use of her personal meter. Pt to return in 2 weeks for download with consumer educator and in approximately 4 week follow up with provider. Encouraged to return for follow up visit. 45 minutes spent on education with Jodi DAIGLE, WENDY. Author Lili Aubrey [facility] 20[facility] 1:18pmMeter: [employer] download 27 April through 11 May [...] have likely improved. Checking on CGM from [facility]-- processing 4 weeks ago, would benefit from [...] of hypoglycemia, hyperglycemia, or diabetes medication issues. [facility] Work Phone: 1(314) 605-227712-19-2023 Evaluation note* Encounter Date Diagnosis Assessment Notes Treatment Notes Treatment Clinical Notes Jan, Type 2 diabetes mellitus with hy perglycemia (ICD-10 - E11.65) ASSESSMENT: 1. Controlled, a [...] she should continue Tresiba 54 units once daily,Ozempic 2 mg weekly. I did let her know next option is prandial insulin, she is hoping to avoid increased need for insulin. We did have a conversation about her son who is type I diabetic, now in his 30s. She is always endorsed a diagnosis of type 2 diabetes. If any changes in character of her glycemic control we may needto consider C-peptide and antibodies. Research shows that stamina with the current regime may fatigue, as would outcomes and CGM is equitable compaired to disease instability. Patient also maintains active lifestyle which increases cumbersome nature of current regime. CGM necessary for titration of insulin. Patient deferred due to her o lt-xw-hdcctu cost. We will retry in a couple [...] or sores that do not appear to behealing. 4. Meter: Plan to check blood glucose: [...] hyperglycemia, or diabetes medication issues. 6. Prescriptions: Jan,Vitamin D deficiency (ICD-10 - E55.9)Learning About Vitamin D material was published to portal Jan,ietary counseling and surveillance (ICD-10 - Z71.3)Learning About Healthy Weight material was published to portal Jan,Hyperlipidemia (ICD-10 - E78.5)Learning About High Cholesterol material was published to portal will discuss with PCP possibility of increasing statin as LDL 134, consistently taking Pbydtdahleju89 mg Jan,HTN (hypertension) (ICD-10 - I10)High Blood Pressure: Care Instructions material was published to portal at goal of less than 130/80 Jan,Long term current use of insulin (ICD-10 - Z79.4) Jan,MI 50.0-59.9, adult (ICD-10 - Z68.43) [employer] Other 10-11-2023 Evaluation note* Encounter Date Diagnosis Assessment Notes Treatment Notes Treatment Clinical Notes Nov, Type 2 diabetes mellitus with hy perglycemia (ICD-10 - E11.65) ASSESSMENT: 1. Controlled, a [...] glucose secondary benefit not based on history ifcost prohibitive. Could also consider patient assistance with Rekha for Fred. We did have a conversation about her son who is type I diabetic, now in his 30s. She is always endorsed a diagnosis of type 2 diabetes. If any changes in character of her glycemic control we may needto consider C-peptide and antibodies. Research shows that stamina with the current regime may fatigue, as would outcomes and CGM is equitable compaired to disease instability. Patient also maintains active lifestyle which increases cumbersome nature of current regime. CGM necessary for titration of insulin. Patient deferred due to her o km-pt-rdclmv cost. We will retry in a couple [...] or sores that do not appear to behealing. 4. Meter: Plan to check blood glucose: [...] needed 10-03-2022.PAP Ozempic/Tresiba. PAP denied for Jardiance Nov,Vitamin D deficiency (ICD-10 - E55.9)Learning About Vitamin D material was published to portal Nov,ietary counseling and surveillance (ICD-10 - Z71.3)Learning About Healthy Weight material was published to portal Nov,Hyperlipidemia (ICD-10 - E78.5)Learning About High Cholesterol material was published to portal will discuss with PCP possibility of increasing statin as LDL 134, consistently taking Afpkndccsjoo62 mg Nov,HTN (hypertension) (ICD-10 - I10)High Blood Pressure: Care Instructions material was published to portal at goal of less than 130/80 Nov,Long term current use of insulin (ICD-10 - Z79.4) Nov,MI 50.0-59.9, adult (ICD-10 - Z68.43) [facility] Other 10-10-2023 Evaluation note* Encounter Date Diagnosis Assessment Notes Treatment Notes Treatment Clinical Notes Nov, History of lumbar spinal fusion (ICD-10 - Z98.1) I independently reviewed the MRI of the lumbar spine and the report.Also the plain x-ray of the lumbar spine and report. This patient has chronic low back pain and diffuse aches all over including upabove the area of operation around the area [...] to her pain management doctor stating that. Nov,Low back pain, unspecified (ICD-10 - M54.50) Nov,Other chronic pain (ICD-10 - G89.29) [facility] Other 08-24-2023 Evaluation note* Encounter Date Diagnosis [...] in which I wIll Refer to neurology forfurther work up. Will order EMG of bilateral lower extremites to determine radicular vs peripheral neuropathy. Follow up in [address] Turner Sep,Tremors of nervous system (ICD-10 - R25.1)Refer to Neurolgoy for further evaluation and treatment Sep,MI 50.0-59.9, adult (ICD-10 - Z68.43) Sep,ge-related osteoporosis without current pathological fracture (ICD- 10 - M81.0)Dexa scan reviewed will refer to Own the bone for further treatment of osteoporosis. Sep,History of lumbar spinal fusion (ICD-10 - Z98.1) [facility] Other 08-18-2023 Evaluation note* Encounter Date Diagnosis Assessment Notes Treatment Notes Treatment Clinical Notes Sep, Type 2 diabetes mellitus with hy perglycemia (ICD-10 - E11.65) ASSESSMENT: 1. Controlled, a [...] 218 and diabetes goal is closer to 550.We will have her return to clinic in [...] character of her glycemic control we may needto consider C-peptide and antibodies. Research shows that stamina with the current regime may fatigue, as would outcomes and CGM is equitable compaired to disease instability. Patient also maintains active lifestyle which increases cumbersome nature of current regime. CGM necessary for titration of insulin. Patient deferred due to her o wi-ni-xqqegj cost. We will retry in a couple [...] or sores that do not appear to behealing. 4. Meter: Plan to check blood glucose: [...] needed 10-03-2022.PAP Ozempic/Tresiba. PAP denied for Jardiance Sep,Vitamin D deficiency (ICD-10 - E55.9)Learning About Vitamin D material was published to portal Sep,ietary counseling and surveillance (ICD-10 - Z71.3)Learning About Healthy Weight material was published to portal Sep,Hyperlipidemia (ICD-10 - E78.5)Learning About High Cholesterol material was published to portal will discuss with PCP possibility of increasing statin as LDL 134, consistently taking Brppsulpfjpx19 mg Sep,HTN (hypertension) (ICD-10 - I10)High Blood Pressure: Care Instructions material was published to portal Blood pressure above goal today at 143/88, goal of less than 130/80 Sep,Long term current use of insulin (ICD-10 - Z79.4) Sep,MI 50.0-59.9, adult (ICD-10 - Z68.43) [facility] Other 06-27-2023 Evaluation note* Encounter Date Diagnosis Assessment Notes Treatment Notes Treatment Clinical Notes Jul, Lumbar radiculopathy (ICD-10 - M 54.16) Independently reviewed the CT of the lumbar spine from 03/06/22, reviewed gydq-xr-fmsx with patient which shows which shows multilevel degenerative changes with mild to moderate canal and foraminal narrowing at the L4-L5. Shows posterior mechanical fusion at the L1-S1 with posterior decompression atthe L1- L3. Patient had physical therapy at [facility] and continues to do the home physical therapy without improvement. Will order xray lumbar 6 view to rule out any spondylolisthesis. Will order MRIto rule out any cord compression. Will get release of information from pain management Dr. Cook and [facility] physical therapy for continuity of care.Will order Aqua therapy. OARRS reviewed. pharmacological management reviewed, will continue with current prescriptions as prescribed. Will add lidocaine patch and ghym-iyg-phxoswb Thermo patch. Will follow-up in 8 weeks [...] negative findings were considered in medical decision-making. Jul,Left leg pain (ICD-10 - M79.605) Jul,ge-related osteoporosis without current pathological fracture (ICD- 10 - M81.0) Jul,History of lumbar fusion (ICD-10 - Z98.1) Jul,epression screening (ICD-10 - Z13.31)PHQ reviewed score 1 negative screening. Denies any thoughts of harming self or others. Advised 988 crisis line. Jul,MI 50.0-59.9, adult (ICD-10 - Z68.43)Education completed on diet, exercise, sugary and caloric intake. Education on 1lb wieght has 4lbs of pressure to the spine. Patient is currently under weight management is onOzempic for diabetes mellitus and has been on this medication for 2 years. Advised to follow-up with weight management. Jul,ost menopausal syndrome (ICD-10 - Z78.0)We will order DEXA scan to rule out osteoporosis Jul,OtherOARRS reveiwed ODRS 450 [facility] Other 06-16-2023 Evaluation note* Encounter Date Diagnosis Assessment Notes Treatment Notes Treatment Clinical Notes Jul, Type 2 diabetes mellitus with hy perglycemia (ICD-10 - E11.65) ASSESSMENT: 1. Controlled, a Type 2 diabetes with A1c of 8.0%, was 7.0%. 2. She will continue Tresiba 54 units once daily, if able to start Jardiance and notices reductionsin blood glucose consistently daily we will have her reduce by 5 units. Written information was given unable to afford Jardiance, will apply for patient assistance. She is already maximized on Ozempic 2.0 mg subcu weekly, her weight is not reducing but she does notice feelings of fullness. She willcontinue metformin 1000 mg p.o. twice daily. Vitamin [...] character of her glycemic control we may needto consider C-peptide and antibodies. Encouraged vitamin D [...] of insulin. Patient deferred due to her o um-bl-rogajr cost. We will retry in a couple [...] or sores that do not appear to behealing. 4. Meter: Plan to check blood glucose: [...] medication issues. 6. Prescriptions: none 08-01-2022.PAP Ozempic/Tresiba. Jul,Vitamin D deficiency (ICD-10 - E55.9)Learning About Vitamin D material was published to portal Jul,ietary counseling and surveillance (ICD-10 - Z71.3)Learning About Healthy Weight material was published to portal Jul,Hyperlipidemia (ICD-10 - E78.5)Learning About High Cholesterol material was published to portal will discuss with PCP possibility of increasing statin as LDL 134, consistently taking Omhjospumltz01 mg Jul,HTN (hypertension) (ICD-10 - I10)High Blood Pressure: Care Instructions material was published to [employer] Jul,Long term current use of insulin (ICD-10 - Z79.4) Jul,MI 50.0-59.9, adult (ICD-10 - Z68.43) [facility] Other 04-21-2023 Evaluation note* Encounter Date Diagnosis Assessment Notes Treatment Notes Treatment Clinical Notes May, Type 2 diabetes mellitus with hy perglycemia (ICD-10 - E11.65) ASSESSMENT: 1. Controlled, a [...] likely cost prohibitive as not covered on Papand no current cost savings offered. She will [...] or sores that do not appear to behealing. 4. Meter: Plan to check blood glucose: [...] diabetes medication issues. 6. Prescriptions: none 06-06-2022 May,Vitamin D deficiency (ICD-10 - E55.9)Learning About Vitamin D material was published to portal May,ietary counseling and surveillance (ICD-10 - Z71.3)Learning About Healthy Weight material was published to portal May,Hyperlipidemia (ICD-10 - E78.5)Learning About High Cholesterol material was published to portal will discuss with PCP possibility of increasing statin as LDL 134, consistently taking Ouuhnaszebav22 mg May,HTN (hypertension) (ICD-10 - I10)High Blood Pressure: Care Instructions material was published to portal May,Long term current use of insulin (ICD-10 - Z79.4) May,MI 50.0-59.9, adult (ICD-10 - Z68.43) May,OtherExpect improvement with escalation of Ozempic to 2.0 mg subcu daily. Weight up today without decrease in insulin needs, no increases satiety The patient was given a Dexcom G6 sample and loaned an Office owned Dexcom G6 Applications Intern. The sensor was placed on the back of her right arm by this educator. The patient was shown how to unlock the post office markup clerk and read her BG. 15 minutes were spent placing the sensor and educating the patient by Lit Dixon RN, [facility] . [facility] Other 03-30-2023 NoteCONSULTATION CONSULTATION DATE: 05/15/2022 TO: [...] of the iliohypogastric nerve under fluoroscopic guidance.[id number] Evaluation note* Encounter Date Diagnosis Assessment Notes Treatment Notes Treatment Clinical Notes Feb, Type 2 diabetes mellitus with hy perglycemia (ICD-10 - E11.65) ASSESSMENT: 1. Controlled, a Type 2 diabetes with A1c of 7.8%, was 7.0%. 2. No characterization of blood glucose. Retained hypoglycemia awareness but not recent episode. Noevidence of lows. Diabetes control slightly worsened with A1c from 7.0 to 7.8%. Patient has been off of Jardiance for approximately 6 weeks due to. She has been off of metformin for 3 days due to having CT with contrast. She will restart on Thursday. She is tolerating Ozempic 2.0 mg subcu weekly, re ceiving via patient assistance. She is frustrated by [...] to afford weight loss. She defers dietary counselingat this time. She also defers official participation in weight management. But this invitation stands if she changes her mind. She is not having hypoglycemia therefore that is not contributing to herdosing. We did have a conversation about her [...] or sores that do not appear to behealing. 4. Meter: Plan to check blood glucose: [...] or diabetes medication issues. 6. Prescriptions: none Feb,Vitamin D deficiency (ICD-10 - E55.9)Learning About Vitamin D material was published to portal Feb,ietary counseling and surveillance (ICD-10 - Z71.3)Learning About Healthy Weight material was published to portal Feb,Hyperlipidemia (ICD-10 - E78.5)Learning About High Cholesterol material was published to portal will discuss with PCP possibility of increasing statin as LDL 134, consistently taking Uvuarvsrcskb94 mg Feb,HTN (hypertension) (ICD-10 - I10)High Blood Pressure: Care Instructions material was published to portal Feb,Long term current use of insulin (ICD-10 - Z79.4) Feb,MI 45.0-49.9, adult (ICD-10 - Z68.42)Expect improvement with escalation of Ozempic to 2.0 mg subcu daily. Weight up today without decrease in insulin needs, no increases satiety [facility] Other 12-29-2022 NoteCONSULTATION CONSULTATION DATE: 02/13/2022 HISTORY [...] is able to walk unassisted. Medications include Greenfield 5/325 t.i.d., baclofen 10 mg q.h. s., Pamelor and gabapentin 100 mg t.i.d. At her last appointment, I discussed the patient going to [facility] and she agreed; however, due to [...] A referral will be sent to [facility] to Dr. Moses Goetz for evaluation and patient is in complete agreement with this. We will continue to maintain her medications at this time, which will include Lyrica, Greenfield and baclofen. We will see the patient in three months' time, unless otherwise indicated. Patient was asked to call the office with an update once she has seen Neurosurgery.[facility] 12-31-2021 Evaluation note* Encounter Date Diagnosis Assessment Notes Treatment Notes Treatment Clinical Notes Dec, Type 2 diabetes mellitus with hy perglycemia (ICD-10 - E11.65) [facility] Other 09-21-2022 NoteCONSULTATION CONSULTATION DATE: 11/06/2021 HISTORY [...] secondary to her pain. Current medications include Greenfield 5/325 t.i.d., baclofen 10 mg q.h.s., Pamelor [...] indicated, and patient agrees with this plan.[facility] [id number] Evaluation note* Encounter Date Diagnosis Assessment Notes Treatment Notes Treatment Clinical Notes Oct, Type 2 diabetes mellitus with hy perglycemia (ICD-10 - E11.65) Sample Ozempic 2.0 mg [...] daily. Encouraged vitamin D supplement 4000 IU daily(level 23 goal 40 and B12 SL supplement [...] or sores that do not appear to behealing. 4. Meter: Plan to check blood glucose: [...] Ozempic. Returned PAP paperwork for Ozempic 10/28/2021. Oct,Vitamin D deficiency (ICD-10 - E55.9)Learning About Vitamin D material was published to portal Oct,ietary counseling and surveillance (ICD-10 - Z71.3)Learning About Healthy Weight material was published to portal Oct,Hyperlipidemia (ICD-10 - E78.5)Learning About High Cholesterol material was published to portal will discuss with PCP possibility of increasing statin as LDL 134, consistently taking Okbtcwcllenr12 mg Oct,HTN (hypertension) (ICD-10 - I10)High Blood Pressure: Care Instructions material was published to portal Oct,Long term current use of insulin (ICD-10 - Z79.4) Oct,MI 45.0-49.9, adult (ICD-10 - Z68.42)Expect improvement with escalation of Ozempic to 2.0 mg subcu daily. Weight slightly improving. hopeful for continue reduction to increase insulin sensitivity and decrease insulin needs. [facility] Other 06-16-2022 NoteCONSULTATION CONSULTATION DATE: 08/01/2021 HISTORY [...] burn but manageable. Her current medications are Greenfield 5/325 t.i.d., baclofen 10 mg q.h.s. and [...] move forward with aqua therapy at the [place] location. I did discuss vitamins with her as well as nutrition importance. Patient will be seen at the clinic in three months' time unless otherwise indicated. [facility] Signed and Approved by: ALICIA HERNANDEZ . 08/14/2021 16:24:00[facility]05-23-2022 Evaluation note* Encounter Date Diagnosis Assessment Notes Treatment Notes Treatment Clinical Notes June, Type 2 diabetes mellitus with hy perglycemia (ICD-10 - E11.65) [facility] Other 05-19-2022 Evaluation note* Encounter Date Diagnosis Assessment Notes Treatment Notes Treatment Clinical Notes June, Type 2 diabetes mellitus with hy perglycemia (ICD-10 - E11.65) ASSESSMENT: 1. Controlled, a Type 2 diabetes with A1c of 6.6% 2. Blood glucose levels have slight increase from A1c of 6.0 in November 2021. We will continue her Basaglar. She will reduce when she increases her Ozempic to 54 units daily. We did discuss titrationbased on 3 of 7 days below 100 reducing 5 units. After dose stabilization with Ozempic she can consider reintroducing 1 unit weekly of insulin to keep blood glucose a.m. 130 or under. She will increas e her Ozempic to 1.5 x 2 weeks [...] or sores that do not appear to behealing. 4. Meter: Plan to check blood glucose: [...] to Joann/ Ovidio { per Marimar S todayorder all DM when first visit with her} June,Vitamin D deficiency (ICD-10 - E55.9)Learning About Vitamin D material was published to portal June,ietary counseling and surveillance (ICD-10 - Z71.3)Learning About Healthy Weight material was published to portal June,Hyperlipidemia (ICD-10 - E78.5)Learning About High Cholesterol material was published to portal June,HTN (hypertension) (ICD-10 - I10)High Blood Pressure: Care Instructions material was published to portal June,Long term current use of insulin (ICD-10 - Z79.4) June,MI 45.0-49.9, adult (ICD-10 - Z68.42)Expect improvement with escalation of Ozempic to 2.0 mg subcu daily. [facility] Other 10-06-2021 Evaluation note* Encounter Date Diagnosis Assessment Notes Treatment Notes Treatment Clinical Notes Nov, Type 2 diabetes mellitus with hy perglycemia (ICD-10 - E11.65) ASSESSMENT: 1. controlled Type [...] or sores that do not appear to behealing. 4. Meter: Plan to check blood glucose: [...] 6. Prescriptions: None needed at this time. Nov,ong term current use of insulin (ICD-10 - Z79.4) Nov,HTN (hypertension) (ICD-10 - I10) High Blood Pressure: Care Instructions material was published to portal Nov,Hyperlipidemia (ICD-10 - E78.5) Learning About High Cholesterol material was published to portal Nov,ietary counseling and surveillance (ICD-10 - Z71.3) Learning About Healthy Weight material was published to portal Nov,MI 45.0-49.9, adult (ICD-10 - Z68.42) Nov,lbuminuria (ICD-10 - R80.9) Nov,MI 50.0-59.9, adult (ICD-10 - Z68.43) Nov,OtherLearning About Vitamin D material was published to [employer] Other Evaluation noteNo InformationNortAdvanced Surgical Hospital R[facility] Other Evaluation noteNo assessment information available [facility] Work Phone: Evaluation note* Diagnosis Onset Date Resolution Status Type 2 diabetes mellitus with hyperglyce bobby acute [facility] Work Phone: Evaluation note* Diagnosis Abnormal stress test Other nonspecific abnormal cardiovascular system function study documented in this encounter [facility]THE[facility]* Diagnosis Onset Date Resolution Status Hyperlipemia acuteHypertensionacuteType 2 diabetes mellitus with hyperglycemiaacute [facility] Work Phone: Evaluation note* Diagnosis Acute pain of left knee- Primary History of left knee replacement Left hip pain Pain in joint, pelvic region and thigh documented in this encounter [facility]* Diagnosis Wellness examination- Primary [...] Unspecified essential hypertension documented in this encounter [facility] HealthcareEvaluation [facility]* Diagnosis Wellness examination- Primary Encounter for screening mammogram for malignant neoplasm of breast Heart murmur, systolic Preoperative clearance Unspecified pre-operative examination Primary hypertension (CMS/HCC) Unspecified essential hypertension BMI 50.0-59.9, adult (CMS/HCC) Mixed hyperlipidemia (CMS/HCC) Mixed hyperlipidemia Recurrent major depressive disorder, in partial remission (HCC) ([facility]/HCC) Type 2 diabetes mellitus with hyperglycemia, with long-term current use of insulin ([facility]/HCC) Acute pain of left knee- Primary History of left knee replacement documented in this encounter [facility] HealthcareEvaluation note* Diagnosis Onset Date Resolution Status Admit Date Dietary counseling and surveillance acuteNovember 2023 9:39amEncounter for long-term (current) insulin use acuteNovember 2023 9:39amHyperlipemiaacuteNovember 2023 9:39am HypertensionacuteNovember 2023 9:39amType 2 diabetes mellitus with hyperglycemiaacuteNovember 2023 9:39amVitamin D deficiency, unspecified acuteNovember 2023 9:39am [facility] Work Phone: Evaluation note* Diagnosis Wellness examination- Primary Encounter for screening mammogram for malignant neoplasm of breast Heart murmur, systolic Preoperative clearance Unspecified pre-operative examination Primary hypertension (CMS/HCC) Unspecified essential hypertension BMI 50.0-59.9, adult (CMS/HCC) Mixed hyperlipidemia (CMS/HCC) Mixed hyperlipidemia Recurrent major depressive disorder, in partial remission (HCC) ([facility]/HCC) Type 2 diabetes mellitus with hyperglycemia, with long-term current use of insulin ([facility]) Acute pain of right shoulder- Primary Arthritis of right acromioclavicular joint documented in this encounter [facility] HealthcareEvaluation note* Diagnosis Wellness examination- Primary Encounter for screening mammogram for malignant neoplasm of breast Heart murmur, systolic Preoperative clearance Unspecified pre-operative examination Primary hypertension (CMS/HCC) Unspecified essential hypertension BMI 50.0-59.9, adult ([facility]) Mixed hyperlipidemia ([facility]) Mixed hyperlipidemia Recurrent major depressive disorder, in partial remission (HCC) ([facility]) Type 2 diabetes mellitus with hyperglycemia, with long-term current use of insulin ([facility]) Bronchitis- Primary Bronchitis, not specified as acute or chronic Type 2 diabetes mellitus with diabetic mononeuropathy ([facility]) Wheezing documented in this encounter [facility] HealthcareEvaluation note* Diagnosis Wellness examination- Primary Encounter for screening mammogram for malignant neoplasm of breast Heart murmur, systolic Preoperative clearance Unspecified pre-operative examination Primary hypertension ([facility]) Unspecified essential hypertension BMI 50.0-59.9, adult ([facility]) Mixed hyperlipidemia ([facility]) Mixed hyperlipidemia Recurrent major depressive disorder, in partial remission (HCC) ([facility]) Type 2 diabetes mellitus with hyperglycemia, with long-term current use of insulin ([facility]) Acute pain of right shoulder- Primary Arthritis of right acromioclavicular joint Internal derangement of right shoulder History of claustrophobia documented in this encounter [facility] HealthcareEvaluation note* Diagnosis Wellness examination- Primary Encounter for screening mammogram for malignant neoplasm of breast Heart murmur, systolic Preoperative clearance Unspecified pre-operative examination Primary hypertension ([facility]) Unspecified essential hypertension BMI 50.0-59.9, adult ([facility]) Mixed hyperlipidemia ([facility]) Mixed hyperlipidemia Recurrent major depressive disorder, in partial remission (HCC) ([facility]) Type 2 diabetes mellitus with hyperglycemia, with long-term current use of insulin ([facility]) Type 2 diabetes mellitus with diabetic mononeuropathy, with long-term current use of insulin ([facility])- Primary Left leg cellulitis Morbid (severe) obesity due to excess calories ([facility]) Body mass index (BMI) 50.0-59.9, adult ([facility]) Type 2 diabetes mellitus with other skin complications ([facility]) Bipolar disorder, unspecified ([facility]) Bipolar disorder, unspecified documented in this encounter [facility] HealthcareEvaluation note* Diagnosis Wellness examination- Primary Encounter for screening mammogram for malignant neoplasm of breast Heart murmur, systolic Preoperative clearance Unspecified pre-operative examination Primary hypertension ([facility]) Unspecified essential hypertension BMI 50.0-59.9, adult ([facility]/HCC) Mixed hyperlipidemia ([facility]) Mixed hyperlipidemia Recurrent major depressive disorder, in partial remission (HCC) ([facility]) Type 2 diabetes mellitus with hyperglycemia, with long-term current use of insulin ([facility]) History of claustrophobia- Primary documented in this encounter [facility] HealthcareEvaluation note* Diagnosis Wellness examination- Primary Encounter for screening mammogram for malignant neoplasm of breast Heart murmur, systolic Preoperative clearance Unspecified pre-operative examination Primary hypertension ([facility]) Unspecified essential hypertension BMI 50.0-59.9, adult ([facility]) Mixed hyperlipidemia ([facility]) Mixed hyperlipidemia Recurrent major depressive disorder, in partial remission (HCC) ([facility]) Type 2 diabetes mellitus with hyperglycemia, with long-term current use of insulin ([facility]) Left leg cellulitis- Primary Type 2 diabetes mellitus with diabetic mononeuropathy, with long-term current use of insulin ([facility]) Skin rash Rash and other nonspecific skin eruption Opioid dependence, uncomplicated ([facility]) documented in this encounter [facility] HealthcareEvaluation note* Diagnosis Wellness examination- Primary Encounter for screening mammogram for malignant neoplasm of breast Heart murmur, systolic Preoperative clearance Unspecified pre-operative examination Primary hypertension ([facility]) Unspecified essential hypertension BMI 50.0-59.9, adult ([facility]) Mixed hyperlipidemia ([facility]) Mixed hyperlipidemia Recurrent major depressive disorder, in partial remission (HCC) ([facility]) Type 2 diabetes mellitus with hyperglycemia, with long-term current use of insulin ([facility]) Mixed hyperlipidemia ([facility]) Mixed hyperlipidemia documented in this encounter [facility] HealthcareEvaluation note* Diagnosis Wellness examination- Primary Encounter for screening mammogram for malignant neoplasm of breast Heart murmur, systolic Preoperative clearance Unspecified pre-operative examination Primary hypertension ([facility]) Unspecified essential hypertension BMI 50.0-59.9, adult ([facility]) Mixed hyperlipidemia ([facility]/HCC) Mixed hyperlipidemia Recurrent major depressive disorder, in partial remission (HCC) ([facility]) Type 2 diabetes mellitus with hyperglycemia, with long-term current use of insulin ([facility]) Acute pain of right shoulder- Primary Arthritis of right acromioclavicular joint Biceps tendinitis, right documented in this encounter [facility] HealthcareEvaluation note* Diagnosis Wellness examination- Primary Encounter for screening mammogram for malignant neoplasm of breast Heart murmur, systolic Preoperative clearance Unspecified pre-operative examination Primary hypertension (CMS/HCC) Unspecified essential hypertension BMI 50.0-59.9, adult ([facility]/HCC) Mixed hyperlipidemia (CMS/HCC) Mixed hyperlipidemia Recurrent major depressive disorder, in partial remission (HCC) ([facility]) Type 2 diabetes mellitus with hyperglycemia, with long-term current use of insulin ([facility]/HCC) Biceps tendinitis, right- Primary Impingement of right shoulder documented in this encounter [facility] HealthcareEvaluation note* Diagnosis Endometrial cancer ([facility])- Primary Malignant neoplasm of corpus uteri, except isthmus BMI 50.0-59.9, adult ([facility]) documented in this encounter [facility] SystemEvaluation [facility]* Diagnosis Wellness examination- Primary Encounter for screening mammogram for malignant neoplasm of breast Heart murmur, systolic Preoperative clearance Unspecified pre-operative examination Primary hypertension (CMS/HCC) Unspecified essential hypertension BMI 50.0-59.9, adult ([facility]) Mixed hyperlipidemia (CMS/HCC) Mixed hyperlipidemia Recurrent major depressive disorder, in partial remission (HCC) ([facility]) Type 2 diabetes mellitus with hyperglycemia, with long-term current use of insulin ([facility]) Type 2 diabetes mellitus with diabetic mononeuropathy, with long-term current use of insulin ([facility])- Primary SOB (shortness of breath) Shortness of breath Wheezing Poorly-controlled hypertension ([facility]/HCC) documented in this encounter [facility] HealthcareEvaluation note* Diagnosis Wellness examination- Primary Encounter for screening mammogram for malignant neoplasm of breast Heart murmur, systolic Preoperative clearance Unspecified pre-operative examination Primary hypertension (CMS/HCC) Unspecified essential hypertension BMI 50.0-59.9, adult ([facility]/HCC) Mixed hyperlipidemia (CMS/HCC) Mixed hyperlipidemia Recurrent major depressive disorder, in partial remission (HCC) ([facility]) Type 2 diabetes mellitus with hyperglycemia, with long-term current use of insulin ([facility]) Acute non-recurrent pansinusitis- Primary documented in this encounter [facility] HealthcareEvaluation note* Diagnosis Wellness examination- Primary Encounter for screening mammogram for malignant neoplasm of breast Heart murmur, systolic Preoperative clearance Unspecified pre-operative examination Primary hypertension (CMS/HCC) Unspecified essential hypertension BMI 50.0-59.9, adult (CMS/HCC) Mixed hyperlipidemia (CMS/HCC) Mixed hyperlipidemia Recurrent major depressive disorder, in partial remission (HCC) ([facility]/HCC) Type 2 diabetes mellitus with hyperglycemia, with long-term current use of insulin ([facility]/HCC) Acute pain of right shoulder- Primary Arthritis of right acromioclavicular joint Biceps tendinitis, right Partial nontraumatic tear of rotator cuff, right documented in this encounter [facility] HealthcareEvaluation note* Diagnosis Wellness examination- Primary Encounter for screening mammogram for malignant neoplasm of breast Heart murmur, systolic Preoperative clearance Unspecified pre-operative examination Primary hypertension (CMS/HCC) Unspecified essential hypertension BMI 50.0-59.9, adult (CMS/HCC) Mixed hyperlipidemia (CMS/HCC) Mixed hyperlipidemia Recurrent major depressive disorder, in partial remission (HCC) ([facility]) Type 2 diabetes mellitus with hyperglycemia, with long-term current use of insulin ([facility]) Bursitis of left foot- Primary Acquired keratoderma Pain in left foot Pain in soft tissues of limb Difficulty walking Difficulty in walking documented in this encounter [facility] HealthcareEvaluation note* Diagnosis Onset Date Resolution Status Admit Date Dietary counseling and surveillance acuteApril 2024 9:32amEncounter for long-term (current) insulin useacute May 25, 2024 9:32amHyperlipemiaacuteApril 2024 9:32amHypertensionacute May 25, 2024 9:32amType 2 diabetes mellitus with hyperglycemiaacuteApril 2024 9:32amVitamin D deficiency, unspecifiedacuteApril 2024 9:32am [facility] Work Phone: Evaluation note* Diagnosis Wellness examination- Primary Encounter for screening mammogram for malignant neoplasm of breast Heart murmur, systolic Preoperative clearance Unspecified pre-operative examination Primary hypertension (CMS/HCC) Unspecified essential hypertension BMI 50.0-59.9, adult ([facility]/HCC) Mixed hyperlipidemia ([facility]/HCC) Mixed hyperlipidemia Recurrent major depressive disorder, in partial remission (HCC) ([facility]) Type 2 diabetes mellitus with hyperglycemia, with long-term current use of insulin ([facility]) Pre-op examination- Primary documented in this encounter [facility] HealthcareEvaluation note* Diagnosis Wellness examination- Primary Encounter for screening mammogram for malignant neoplasm of breast Heart murmur, systolic Preoperative clearance Unspecified pre-operative examination Primary hypertension (CMS/HCC) Unspecified essential hypertension BMI 50.0-59.9, adult (CMS/HCC) Mixed hyperlipidemia (CMS/HCC) Mixed hyperlipidemia Recurrent major depressive disorder, in partial remission (HCC) ([facility]/HCC) Type 2 diabetes mellitus with hyperglycemia, with [...] major depressive disorder, in partial remission (HCC) ([facility]/HCC) Type 2 diabetes mellitus with hyperglycemia, with long-term current use of insulin (CMS/HCC) Nonrheumatic aortic valve stenosis- Primary Arthritis of left acromioclavicular joint Preoperative clearance Unspecified pre-operative examination Primary hypertension (CMS/HCC) Unspecified essential hypertension Malignant neoplasm of endometrium (CMS/HCC) Malignant neoplasm of corpus uteri, except isthmus Stage 3a chronic kidney disease (HCC) (CMS/HCC) BMI 50.0-59.9, adult ([facility]/HCC) documented in this encounter [facility] HealthcareEvaluation note* Diagnosis Wellness examination- Primary Encounter for screening mammogram for malignant neoplasm of breast Heart murmur, systolic Preoperative clearance Unspecified pre-operative examination Primary hypertension (CMS/HCC) Unspecified essential hypertension BMI 50.0-59.9, adult (CMS/HCC) Mixed hyperlipidemia (CMS/HCC) Mixed hyperlipidemia Recurrent major depressive disorder, in partial remission (HCC) ([facility]/HCC) Type 2 diabetes mellitus with hyperglycemia, with long-term current use of insulin (CMS/HCC) Primary hypertension (CMS/HCC) Unspecified essential hypertension documented in this encounter [facility] HealthcareEvaluation note* Diagnosis Wellness examination- Primary Encounter for screening mammogram for malignant neoplasm of breast Heart murmur, systolic Preoperative clearance Unspecified pre-operative examination Primary hypertension (CMS/HCC) Unspecified essential hypertension BMI 50.0-59.9, adult (CMS/HCC) Mixed hyperlipidemia (CMS/HCC) Mixed hyperlipidemia Recurrent major depressive disorder, in partial remission (HCC) ([facility]) Type 2 diabetes mellitus with hyperglycemia, with long-term current use of insulin ([facility]) S/P arthroscopy of right shoulder- Primary documented in this encounter [facility]Evaluation note* Diagnosis Wellness examination- Primary Encounter for screening mammogram for malignant neoplasm of breast Heart murmur, systolic Preoperative clearance Unspecified pre-operative examination Primary hypertension ([facility]/HCC) Unspecified essential hypertension BMI 50.0-59.9, adult ([facility]) Mixed hyperlipidemia ([facility]) Mixed hyperlipidemia Recurrent major depressive disorder, in partial remission (HCC) ([facility]) Type 2 diabetes mellitus with hyperglycemia, with long-term current use of insulin ([facility]) S/P arthroscopy of right shoulder- Primary documented in this encounter [facility]Evaluation note* Diagnosis Wellness examination- Primary Encounter for screening mammogram for malignant neoplasm of breast Heart murmur, systolic Preoperative clearance Unspecified pre-operative examination Primary hypertension Unspecified essential hypertension BMI 50.0-59.9, adult ([facility]) Mixed hyperlipidemia Mixed hyperlipidemia Recurrent major depressive disorder, in partial remission Type 2 diabetes mellitus with hyperglycemia, with long-term current use of insulin ([facility]) Acute pain of right shoulder- Primary Acute pain of right knee Primary hypertension Unspecified essential hypertension documented in this encounter [facility] HealthcareEvaluation note* Diagnosis Wellness examination- Primary Encounter for screening mammogram for malignant neoplasm of breast Heart murmur, systolic Preoperative clearance Unspecified pre-operative examination Primary hypertension Unspecified essential hypertension BMI 50.0-59.9, adult ([facility]) Mixed hyperlipidemia Mixed hyperlipidemia Recurrent major depressive disorder, in partial remission Type 2 diabetes mellitus with hyperglycemia, with long-term current use of insulin ([facility]) S/P arthroscopy of right shoulder- Primary documented in this encounter [facility]Evaluation note* Diagnosis Wellness examination- Primary Encounter for screening mammogram for malignant neoplasm of breast Heart murmur, systolic Preoperative clearance Unspecified pre-operative examination Primary hypertension Unspecified essential hypertension BMI 50.0-59.9, adult ([facility]) Mixed hyperlipidemia Mixed hyperlipidemia Recurrent major depressive disorder, in partial remission Type 2 diabetes mellitus with hyperglycemia, with long-term current use of insulin ([facility]) Encounter for wellness examination- Primary Primary hypertension Unspecified essential hypertension Type 2 diabetes mellitus with hyperglycemia, with long-term current use of insulin ([facility]) History of uterine cancer Personal history of malignant neoplasm of other parts of uterus Morbid [place] Morbid obesity Mixed hyperlipidemia Mixed hyperlipidemia Encounter for screening mammogram for malignant neoplasm of breast Encounter for immunization Left hip pain Pain in joint, pelvic region and thigh Recurrent major depressive disorder, in partial remission 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 ([facility]) Chronic kidney disease, stage 2 (mild) Chronic pain disorder Chronic pain syndrome documented in this encounter [facility] HealthcareEvaluation note* Diagnosis Wellness examination- Primary Encounter for screening mammogram for malignant neoplasm of breast Heart murmur, systolic Preoperative clearance Unspecified pre-operative examination Primary hypertension Unspecified essential hypertension BMI 50.0-59.9, adult [place] Mixed hyperlipidemia Mixed hyperlipidemia Recurrent major depressive disorder, in partial remission Type 2 diabetes mellitus with hyperglycemia, with long-term current use of insulin ([facility]) Encounter for wellness examination- Primary Primary hypertension Unspecified essential hypertension Type 2 diabetes mellitus with hyperglycemia, with long-term current use of insulin ([facility]) History of uterine cancer Personal history of malignant neoplasm of other parts of uterus Morbid obesity [place] Morbid obesity Mixed hyperlipidemia Mixed hyperlipidemia Encounter for screening mammogram for malignant neoplasm of breast Encounter for immunization Left hip pain Pain in joint, pelvic region and thigh Recurrent major depressive disorder, in partial remission 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 ([facility]) Chronic kidney disease, stage 2 (mild) Chronic pain disorder Chronic pain syndrome Left leg cellulitis- Primary documented in this encounter [facility] HealthcareEvaluation note* Diagnosis Wellness examination- Primary Encounter for screening mammogram for malignant neoplasm of breast Heart murmur, systolic Preoperative clearance Unspecified pre-operative examination Primary hypertension Unspecified essential hypertension BMI 50.0-59.9, adult [place] Mixed hyperlipidemia Mixed hyperlipidemia Recurrent major depressive disorder, in partial remission Type 2 diabetes mellitus with hyperglycemia, with long-term current use of insulin ([facility]) Encounter for wellness examination- Primary Primary hypertension Unspecified essential hypertension Type 2 diabetes mellitus with hyperglycemia, with long-term current use of insulin ([facility]) History of uterine cancer Personal history of malignant neoplasm of other parts of uterus Morbid obesity ([facility]) Morbid obesity Mixed hyperlipidemia Mixed hyperlipidemia Encounter for screening mammogram for malignant neoplasm of breast Encounter for immunization Left hip pain Pain in joint, pelvic region and thigh Recurrent major depressive disorder, in partial remission USP (current) use of insulin ([facility]) Chronic kidney disease, stage 2 (mild) Chronic pain disorder Chronic pain syndrome Acute left-sided low back pain with left-sided sciatica- Primary documented in this encounter [facility] HealthcareEvaluation note* Diagnosis Wellness examination- Primary Encounter for screening mammogram for malignant neoplasm of breast Heart murmur, systolic Preoperative clearance Unspecified pre-operative examination Primary hypertension Unspecified essential hypertension BMI 50.0-59.9, adult ([facility]) Mixed hyperlipidemia Recurrent major depressive disorder, in partial remission Type 2 diabetes mellitus with hyperglycemia, with long-term current use of insulin ([facility]) Encounter for wellness examination- Primary Primary hypertension Unspecified essential hypertension Type 2 diabetes mellitus with hyperglycemia, with long-term current use of insulin ([facility]) History of uterine cancer Personal history of malignant neoplasm of other parts of uterus Morbid obesity ([facility]) Morbid obesity Mixed hyperlipidemia Encounter for screening mammogram for malignant neoplasm of breast Encounter for immunization Left hip pain Pain in joint, pelvic region and thigh Recurrent 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 depressive disorder, in partial remission 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 ([facility]) Chronic kidney disease, stage 2 (mild) Chronic pain disorder Chronic pain syndrome Sore throat Acute pharyngitis documented in this encounter [facility] HealthcareEvaluation note* Diagnosis Onset Date Resolution Status Admit Date Dietary counseling and surveillance acuteOctober 2024 10:47amEncounter for long-term (current) insulin useacute November 18, 2024 10:47amHyperlipemiaacuteOctober 2024 10:47amHypertension acuteOctober 2024 10:47amType 2 diabetes mellitus with hyperglycemiaacute November 18, 2024 10:47amVitamin D deficiency, unspecifiedacuteOctober 2024 10:47am [facility] Work Phone: Evaluation note* Diagnosis Wellness examination- Primary Encounter for screening mammogram for malignant neoplasm of breast Heart murmur, systolic Preoperative clearance Unspecified pre-operative examination Primary hypertension Unspecified essential hypertension BMI 50.0-59.9, adult ([facility] Mixed hyperlipidemia Recurrent major depressive disorder, in partial remission Type 2 diabetes mellitus with hyperglycemia, with long-term current use of insulin ([facility]) Encounter for wellness examination- Primary Primary hypertension Unspecified essential hypertension Type 2 diabetes mellitus with hyperglycemia, with long-term current use of insulin ([facility]) History of uterine cancer Personal history of malignant neoplasm of other parts of uterus Morbid obesity ([facility]) Morbid obesity Mixed hyperlipidemia Encounter for screening mammogram for malignant neoplasm of breast Encounter for immunization Left hip pain Pain in joint, pelvic region and thigh Recurrent major depressive disorder, in partial remission USP (current) use of insulin ([facility]) Chronic kidney disease, stage 2 (mild) Chronic pain disorder Chronic pain syndrome Need for vaccination- Primary Need for prophylactic vaccination and inoculation against unspecified single disease Pain of left femur Pain of left femur documented in this encounter [facility] HealthcareHistory general Narrative - Reported* Type Description Date Medical History RSD Medical HistoryfibromyalgiaMedical HistoryhypertensionMedical Historytype II diabetesSurgical HistoryC section K5Plgmpqoo Historyrotator cuff tear repair Surgical Historyback surgery m1Tmkmxnap Historyknee surgerySurgical History hysteroscopy4/14Surgical Historyc5-c6 plates & screwsSurgical HistoryD&C4/14 Hospitalization Historysee above [facility] Other History general Narrative - Reported* Type Description Date Medical History RSD Medical HistoryfibromyalgiaMedical HistoryhypertensionMedical Historytype II diabetesSurgical HistoryC section X6Ztumhtho Historyrotator cuff tear repair Surgical Historyback surgery w0Lndleont Historyknee surgerySurgical History hysteroscopy4/14Surgical Historyc5-c6 plates & screwsSurgical HistoryD&C4/14 Surgical Historyknee replacement, Left12/2020Hospitalization Historysee [facility] Other History general Narrative - Reported* Type Description Date Medical History fibromyalgia Medical HistoryhypertensionMedical Historytype II diabetesSurgical HistoryC section W7Clvcwbro Historyrotator cuff tear repairSurgical Historyback surgery w3Exeqsamn Historyknee surgerySurgical Historyhysteroscopy4/14Surgical History c5-c6 plates & screwsSurgical HistoryD&C4/14Surgical Historyknee replacement, Left12/2020Hospitalization Historysee [facility] Other History general Narrative - Reported* Type Description Date Medical History fibromyalgia Medical HistoryhypertensionMedical Historytype II diabetesSurgical HistoryC section A7Ufbbjesb Historyrotator cuff tear repairSurgical Historyback surgery h1Gdcqatdj Historyknee surgerySurgical Historyhysteroscopy4/14Surgical History c5-c6 plates & screwsSurgical HistoryD&C4/14Surgical Historyknee replacement, Left11/1Surgical Historytrigger finger release [id number] Historysee above [place] Other History general Narrative - Reported* Type Description Date Medical History fibromyalgia Medical HistoryhypertensionMedical Historytype II diabetesSurgical HistoryC section K3Zclwhtpb Historyrotator cuff tear repairSurgical Historyback surgery o4Uounzoye Historyknee surgerySurgical Historyhysteroscopy4/14Surgical History c5-c6 plates & screwsSurgical HistoryD&C4/14Surgical Historyknee replacement, Left11/1Surgical Historytrigger finger release wbhanllqj2564Wjpcoikthkrctoe Historysee aboveH[facility] [place] Other History general Narrative - Reported* Type Description Date Medical History fibromyalgia Medical HistoryhypertensionMedical Historytype II diabetesMedical History ArthritisMedical HistoryobesityMedical Historychronic depressionMedical History anxietySurgical HistoryC section O1Wqxamylb Historyrotator cuff tear repair Surgical Historyback surgery o3Fdtzkeqk Historyknee surgerySurgical History hysteroscopy4/14Surgical Historyc5-c6 plates & screwsSurgical HistoryD&C4/14 Surgical Historyknee replacement, Left11/1Surgical Historytrigger finger release bkscqedys4145Qzmoanbntneilrf Historysee aboveHospitalization History [facility] [place] [place] Other History general Narrative - ReportedNort [employer] Other InstructionsNot on filedocumented in this encounter [facility] SystemInstructionsNot on filedocumented in this encounter [facility] SystemReason for referral (narrative)No reason for referral information availableSelect [facility] Work Phone: [facility] Narrative* Consultation (Routine) - AuthorizedSpecialtyDiagnoses / ProceduresReferred By ContactReferred To ContactPhysical Therapy Diagnoses Biceps tendinitis, right Procedures NM OFFICE/OUTPATIENT NEW HIGH MDM 60 MINUTES Jr. Akash Rodriguez, DO [address] [place] [address] Phone: tel: fax: Sean Tineo, PT [address] [place] [address] Phone: tel: fax: Referral IDStatusReasonStart DateExpiration DateVisits RequestedVisits [id number] Consult and Treat / [facility] Summary Purpose Family History No Family History Records Found Relationship Condition Age at Onset Recorded Date/T jaycee Not Specified Hypertension Unknown Myocardial infarctionUnknownfatherPneumoniaUnknownDeceasedUnknown Relationship Condition Age at Onset Recorded Date/T jaycee Not Specified Hypertension Unknown Myocardial infarctionUnknownfatherPneumoniaUnknownDeceasedUnknownfatherMalignant neoplasmUnknownHeart diseaseUnknownNot SpecifiedDeceasedUnknownHypertension UnknownsisterMalignant neoplasmUnknownFamily history of thyroid diseaseUnknown Relationship Condition Age at Onset Recorded Date/T jaycee mother Hypertension Unknown Myocardial infarctionUnknownfatherPneumoniaUnknownDeceasedUnknownfatherMalignant neoplasmUnknownHeart diseaseUnknownmotherDeceasedUnknownHypertensionUnknown sisterMalignant neoplasmUnknownFamily history of thyroid diseaseUnknown Advance Directives No Advanced Directives Records Found Advance Directive Response Recorded Date/ Time Advance Directives No January 17, 2020 3:49pm Advance Directive Response Recorded Date/ Time Advance Directives No January 17, 2020 2:49pm Code StatusDate ActivatedDate InactivatedCommentsFull Code5 10:53 AMDate ActivatedDate TpnidgzbwpoUtnhuuhl72/21/2017 2:11 12/08/2016 12:13 PM Chief Complaint and Reason [...] Dm DM Chief Complaint Dm DM DMN F/U-METERReason for VisitType 2 diabetes mellitus with hyperglycemia Chief Complaint DMN F/U-METER DS download meter METERReason for VisitType 2 diabetes mellitus with hyperglycemia Type 2 diabetes mellitus with hyperglycemia Chief Complaint DMN F/U-METER DS download meter METER UnknownReason for VisitType 2 diabetes mellitus with hyperglycemia Type 2 diabetes mellitus with [...] Visit Admit Date Dietary counseling and surveillance Amandai lola 2024 9:32am Encounter for long-term (current) insuli [...] adult (Z68.43) Ref[facility] Referring Provider First Name Martine Referring Provider Last Name Tobias Referring Provider Specialty Nurse Pract itghulamr Referred Organization [facility] Referred Address [address] [place],[phone] Referred Provider Specialty Neurology Referral Priority Routine Reason evaluate and treat - tremors Diagnosis 1 BMI 50.0-59.9, adult (Z68.43) Referral Organization [facility] Referring Provider First Name Martine Referring Provider Last Name Tobias Referring Provider Specialty Nurse Pracalli itghulamr Referred Organization [facility] Referred Address [address] [place],[address] Referred Provider Specialty Neurology Referral Priority Routine Reason Evaluate and treat - osteoporosis Diagnosis 1 BMI 50.0-59.9, adult (Z68.43) Referral Organization [facility] Referring Provider First Name Martine Referring Provider Last Name Tobias Referring Provider Specialty Nurse Pract itioner Referred Organization [facility] Referred Provider Jennifer Siu Referred Address [address] [place],[address] Referred Provider Specialty Nurse Nancy mendez Referral Priority Routine Additional Source Comments INFORMATION SOURCE (unrecogn ized section and content) DATE CREATED AUTHOR 08/12/2017 [facility] DATE CREATED AUTHOR AUTHOR'S ORGANIZ ATION 07/02/2022 [facility] DATE CREATED AUTHOR AUTHOR'S ORGANIZ ATION 05/31/2023 [facility] DATE CREATED AUTHOR AUTHOR'S ORGANIZ ATION 06/04/2023 [facility] DATE CREATED AUTHOR AUTHOR'S ORGANIZ ATION 06/30/2023 [facility] DATE CREATED AUTHOR AUTHOR'S ORGANIZ ATION 04/12/2024 [facility] DATE CREATED AUTHOR AUTHOR'S ORGANIZ ATION 06/25/2024 [facility] DATE CREATED AUTHOR AUTHOR'S ORGANIZ ATION 11/06/2024 [facility] DATE CREATED AUTHOR AUTHOR'S ORGANIZ ATION 11/21/2024 [facility] DATE CREATED AUTHOR AUTHOR'S ORGANIZ ATION 12/02/2024 [facility] DATE CREATED AUTHOR AUTHOR'S ORGANIZ ATION 12/04/2024 [facility] EPIC REASON FOR VISIT (unrecogniz ed section and content) SpecialtyDiagnoses / ProceduresReferred By ContactReferred To Contact Diagnoses Abnormal stress test Abnormal stress test [R94.39] Procedures NM CATH PLMT L HRT & ARTS W/NJX & ANGIO IMG S&I NM CATH PLMT L HRT & ARTS W/NJX & ANGIO IMG S&I Left heart cath / [place] [address] [facility] [address] [place] [address] [facility] [address] [place] [address] Referral IDStatusReasonStart DateExpiration DateVisits RequestedVisits [id number] DateCommentsMed Refill 4ReasonCommentsPainReasonOnset DateCommentsMed Wwmllc734Reason CommentsURIReasonCommentsFollow-upReasonOnset DateCommentsMRI Udxhnayx64/15/2025 ReasonCommentsLeg SwellingReasonCommentsMed RefillReasonCommentsFollow-upReason Onset WwesCwqgiksvXfoslujrv31/18/2024Out of networkReasonCommentsNew Patient ReasonCommentsIPK LesionJacqueline Englehart 64yo patient presents with Left foot callus pain. /BS 103 A1C 9.7 (01/2025)/Yoly 04/12/2024 SS 9 ReasonCommentsPre-op ExamReasonOnset DateCommentsMed Nsksvq8706/16/2024Reason CommentsPost-opReasonCommentsKnee InjuryReasonCommentsLeg PainHip PainMedicare Annual Wellness Visit SubsequentReasonCommentsER Follow-upReasonCommentsBack PainReasonCommentsSore ThroatCough, congestion started last week.ReasonComments Leg Pain Care Teams (unrecognized sec tion and content) Team Status: Active Member Role Status Dates Judith Patel DO Primary Care Provider Active Team Status: Inactive Member Role Status Dates ANH FriasC Attending Provider Active Tigist Hough Care ProviderActive Team Status: Active Member Role Status Dates Kalie Kasper DO Primary Care Provider, Attending Provider Active Team Status: Inactive Member Role Status Dates Judith Patel DO Primary Care Provider Active ANH FriasCAttenpavel ProviderActive Team Status: Inactive Member Role Status Dates [...] Active Start: April 07, 2023 End: April 07Jesús Greco ProviderActiveStart: April 07, 2023 End: April 07, 2023 Team Status: Inactive Member Role Status Dates Judith Patel DO Primary Care Provider Active Start: April 21, 2023 End: April 21, 2023Camacho Saravia ProviderActiveStart: April 21, 2023 End: April 21, 2023 Team Status: Active Member Role Status Dates Judith Patel DO Primary Care Provide r, Attending Provider Active Start: April 22, 2023 Team Status: Inactive Member Role Status Dates Judith Patel DO Primary Care Provider Active Start: May 11, 2023 End: May 10trey Burgos APRNAtyamil ProviderActiveStart: May 11, 2023 End: May 11, 2023 Team Status: Inactive Member Role Status Dates Shawn eWbb Attending Provider Active Start: 2023 End: May 22, 2023Team MemberRelationshipSpecialtyStart DateEnd Date Pastora Kohler APRN - GUEST RELATIONS AGENT [address] [place] [address] PCP - GeneralNurse Practitioner [facility]06/15/23 Team Status: Active Member Role Status Dates NON STAFF Primary Care Provider Active Team Status: Active Member Role Status Dates Julien Goldstein Attending Provider Active Start: Adan coles 2023 Team Status: Inactive Member Role Status Dates Lili Burgos APRN Attending Provider Active Start: September 23, 2023 End: September 23, 2023NON STAFFPrima Care ProviderActiveStart: September 23, 2023 End: September 23, 2023Team MemberRelationshipSpecialtyStart DateEnd Date Jennifer Cabrera MD [address] [facility] [place] [address] PCP - [facility]04/10/23 Pastora Kohler NP [address] [facility] [place] [address] PCP - [facility]// Pastora Kohler, MEDICAL ANTHROPOLOGY DIRECTOR [address] [place] [address] Nurse Pract[facility]erTu[facility] Medicine04/10/23Team MemberRelationshipSpecialtyStart DateEnd Date Jennifer Cabrera MD [address] [facility] [place] [address] PCP - [facility]04/10/23 Pastora Kohler NP [address] [place] [address] PCP - [facility]/ Pastora Kohler NP [address] [place] [address] [facility]04/10/23Team MemberRelationshipSpecialtyStart DateEnd Date Jennifer Cabrera MD [address] [place] [address] PCP - [facility]04/10/23 Pastora Kohler NP [address] [place] [address] PCP - [facility]/ Pastora Kohler NP [address] [place] [address] [facility]04/10/23Team MemberRelationshipSpecialtyStart DateEnd Date Jennifer Cabrera MD [address] [place] [address] PCP - [facility]04/10/23 Pastora Kohler NP [address] [place] [address] PCP - [facility]/ Pastora Kohler MEDICAL ANTHROPOLOGY DIRECTOR [address] [place] [address] [facility]04/10/23Team MemberRelationshipSpecialtyStart DateEnd Date Jennifer Cabrera MD [address] [place] [address] PCP - [facility]04/10/23 Pastora Kohler MEDICAL ANTHROPOLOGY DIRECTOR [address] [place] [address] PCP - [facility]/ Pastora Kohler MEDICAL ANTHROPOLOGY DIRECTOR [address] [place] [address] [facility]04/10/23 Team Status: Active Member Role Status Dates NON STAFF Primary Care Provider Active Start: December 24, 2023 Lili Burgos , APRNAttending ProviderActiveStart: December 24, 2023 Team Status: Inactive Member Role Status Dates NON STAFF Primary Care Provider Active Start: December 30, 2023 End: December 29ebhebert Burgos , APRNAttending ProviderActiveStart: December 30, 2023 End: December 30, 2023Team MemberRelationshipSpecialtyStart DateEnd Date Jennifer Cabrera MD [address] [place] [address] PCP - [facility]04/10/23 Pastora Kohler, MEDICAL ANTHROPOLOGY DIRECTOR [address] [place] [address] PCP - [facility]/ Pastora Kohler, MEDICAL ANTHROPOLOGY DIRECTOR [address] [place] [address] Nurse PractitionerFamily Medicine04/10/23Team MemberRelationshipSpecialtyStart DateEnd Date Jennifer Cabrera MD [address] [place] [address] [facility] - [facility]04/10/23 Pastora Kohler, MEDICAL ANTHROPOLOGY DIRECTOR [address] [place] [address] PCP - [facility]/ Pastora Kohler, MEDICAL ANTHROPOLOGY DIRECTOR [address] [place] [address] [facility] Medicine04/10/23Team MemberRelationshipSpecialtyStart DateEnd Date Jennifer Cabrera MD [address] [place] [address] [facility] - [facility]04/10/23 Pastora Kohler NP [address] [place] [address] PCP - [facility]/ Pastora Kohler MEDICAL ANTHROPOLOGY DIRECTOR [address] [place] [address] Nurse Practitionermily Medicine04/10/23Team MemberRelationshipSpecialtyStart DateEnd Date Jennifer Cabrera MD [address] [place] [address] PCP - [facility]04/10/23 Pastora Kohler MEDICAL ANTHROPOLOGY DIRECTOR [address] [place] [address] PCP - [facility]/ Pastora Kohler NP [address] [place] [address] Nurse PractitionerFaarly Medicine04/10/23Team MemberRelationshipSpecialtyStart DateEnd Jennifer Cabrera MD [address] [place] [address] [facility] - [facility]04/10/23 Pastora Kohler NP [address] [place] [address] PCP - [facility] Pastora Kohler NP [address] [place] [address] [facility]04/10/23Team MemberRelationshipSpecialtyStart End Jennifer Cabrera MD [address] [place] [address] PCP - [facility]04/10/23 Pastora Kohler NP [address] [place] [address] PCP - [facility]/ Pastora Kohler NP [address] [place] [address] [facility]04/10/23Team MemberRelationshipSpecialtyStart End Date Jennifer Cabrera MD [address] [place] [address] PCP - [facility]04/10/23 Pastora Kohler NP [address] [place] [address] PCP - [facility]/ Pastora Kohler MEDICAL ANTHROPOLOGY DIRECTOR [address] [place] [address] [facility]04/10/23Team MemberRelationshipSpecialtyStart DateEnd Date Jennifer Cabrera MD [address] [place] [address] PCP - [facility]04/10/23 Pastora Kohler MEDICAL ANTHROPOLOGY DIRECTOR [address] [place] [address] PCP - [facility]/ Pastora Kohler MEDICAL ANTHROPOLOGY DIRECTOR [address] [place] [address] [facility]04/10/23 Team Status: Active Member Role Status Dates Pastora Kohler NP-C Primary Care Provider Activ e Team Status: Active Member Role Status Dates Pastora Kohler NP-C Primary Care Provider, Attending Provider Active Start: March 01, 2024 Team Status: Inactive Member Role Status Dates Lauren Torres PA-C Attending Provider Active S tart: March 10, 2024 End: March 10lydia Kohler NP-CPrimary Care ProviderActive Start: March 10, 2024 End: March 10, 2024Team MemberRelationshipSpecialtyStart DateEnd Date Jennifer Cabrera MD [address] [place] [address] PCP - [facility]04/10/23 Pastora Kohler, MEDICAL ANTHROPOLOGY DIRECTOR [address] [place] [address] PCP - [facility]/ Pastora Kohler, MEDICAL ANTHROPOLOGY DIRECTOR [address] [place] [address] [facility]04/10/23Team MemberRelationshipSpecialtyStart DateEnd Date Jennifer Cabrera MD [address] [place] [address] PCP - [facility]04/10/23 Pastora Kohler MEDICAL ANTHROPOLOGY DIRECTOR [address] [place] [address] [facility]/ Pastora Kohler MEDICAL ANTHROPOLOGY DIRECTOR [address] [place] [address] [facility]04/10/23Team MemberRelationshipSpecialtyStart DateEnd Date Jennifer Cabrera MD [address] [place] [address] PCP - [facility]04/10/23 Pastora Kohler MEDICAL ANTHROPOLOGY DIRECTOR [address] [place] [address] PCP - [facility] Pastora Kohler MEDICAL ANTHROPOLOGY DIRECTOR [address] [place] [address] Nurse PractitionerFamily Medicine04/10/23Team MemberRelationshipSpecialtyStart DateEnd Date Judith Patel DO [address] [place] [address] PCP - GeneralFamily Medicine02/19/22Team MemberRelationshipSpecialtyStart DateEnd Date Judith Patel DO [address] [place] [address] PCP - GeneralFamily Medicine02/19/22Team MemberRelationshipSpecialtyStart DateEnd Date Jennifer Cabrera MD [address] [place] [address] PCP - GeneralFamily Medicine04/10/23 Pastora Kohler NP [address] [place] [address] PCP - [facility]/ Pastora Kohler NP [address] [place] [address] Nurse Practitionermily Medicine04/10/23Team MemberRelationshipSpecialtyStart DateEnd Date Jennifer Cabrera MD [address] [place] [address] PCP - GeneralFamily Medicine04/10/23 Pastora Kohler NP [address] [place] [address] PCP - [facility]/ Pastora Kohler NP [address] [place] [address] Nurse PractitionerFaarly Medicine04/10/23Te MemberRelationshipSpecialtyStart DateEnd Date Jennifer Cabrera MD [address] [place] [address] [facility] - [facility]04/10/23 Pastora Kohler NP [address] [place] [address] PCP - [facility] Pastora Kohler NP [address] [place] [address] [facility]04/10/23Te MemberRelationshipSpecialtyStart DateEnd Date Jennifer Cabrera MD [address] [place] [address] PCP - GeneralFami Medicine04/10/23 Pastora Kohler NP [address] [place] [address] PCP - [facility]/ Pastora Kohler NP [address] [place] [address] [facility] Medicine04/10/23Te MemberRelationshipSpecialtyStart DateEnd Date Jennifer Cabrera MD [address] [place] [address] PCP - [facility]04/10/23 Pastora Kohler MEDICAL ANTHROPOLOGY DIRECTOR [address] [place] [address] PCP - [facility]/ Pastora Kolher MEDICAL ANTHROPOLOGY DIRECTOR [address] [place] [address] [facility]04/10/23 Team Status: Inactive Member Role Status Dates Pastora Kohler NP-C Primary Care Provider Activ e Start: May 25, 2024 End: May 25, 2024Jesús Whiteside ProviderActiveStart: May 25, 2024 End: May 25, 2024 Team Status: Inactive Member Role Status Dates Lili Burgos APRN Attending Provider Active Start: May 25, 2024 End: May 25, 2024Team MemberRelationshipSpecialtyStart DateEnd Date Jennifer Cabrera MD [address] [place] [address] [facility] - [facility] Pastora Kohler MEDICAL ANTHROPOLOGY DIRECTOR [address] [place] [address] PCP - [facility]/ Pastora Kohler NP [address] [place] [address] [facility] Medicine04/10/23Team MemberRelationshipSpecialtyStart DateEnd Date Jennifer Cabrera MD [address] [place] [address] PCP - [facility]04/10/23 Pastora Kohler NP [address] [place] [address] PCP - [facility]/ Pastora Kohler MEDICAL ANTHROPOLOGY DIRECTOR [address] [place] [address] [facility]04/10/23Team MemberRelationshipSpecialtyStart DateEnd Jennifer Cabrera MD [address] [place] [address] PCP - [facility]04/10/23 Pastora Kohler MEDICAL ANTHROPOLOGY DIRECTOR [address] [place] [address] [facility] Pastora Kohler MEDICAL ANTHROPOLOGY DIRECTOR [address] [place] [address] [facility]04/10/23Te MemberRelationshipSpecialtyStart DateEnd Jennifer Cabrera MD [address] [place] [address] PCP - [facility]04/10/23 Pastora Kohler NP [address] [place] [address] PCP - [facility]/ Pastora Kohler NP [address] [place] [address] [facility]04/10/23Team MemberRelationshipSpecialtyStart DateEnd Date Jennifer Cabrera MD [address] [place] [address] [facility] - [facility]04/10/23 Pastora Kohler NP [address] [place] [address] PCP - [facility] Pastora Kohler NP [address] [place] [address] [facility]04/10/23Te MemberRelationshipSpecialtyStart DateEnd Date Jennifer Cabrera MD [address] [place] [address] PCP - [facility]04/10/23 Pastora Kohler NP [address] [place] [address] PCP - [facility]/ Pastora Kohler NP [address] [place] [address] [facility]04/10/23Team MemberRelationshipSpecialtyStart DateEnd Date Jennifer Cabrera MD [address] [place] [address] [facility]/10/23 Pastora Kohler NP [address] [place] [address] PCP - [facility]/ Pastora Kohler NP [address] [place] [address] [facility]04/10/23Team MemberRelationshipSpecialtyStart End Jennifer Cabrera MD [address] [place] [address] PCP - [facility]04/10/23 Pastora Kohler NP [address] [place] [address] PCP - [facility] Pastora Kohler NP [address] [place] [address] [facility]04/10/23Team MemberRelationshipSpecialtyStart DateEnd Date Jennifer Cabrera MD [address] [place] [address] PCP - [facility]04/10/23 Pastora Kohler NP [address] [place] [address] PCP - [facility] Pastora Kohler NP [address] [place] [address] [facility]04/10/23Team MemberRelationshipSpecialtyStart DateEnd Date Jennifer Cabrera MD [address] [facility] [place] [address] PCP - [facility]04/10/23 Pastora Kohler MEDICAL ANTHROPOLOGY DIRECTOR [address] [facility] [place] [address] PCP - [facility]/ Pastora Kohler MEDICAL ANTHROPOLOGY DIRECTOR [address] [facility] [place] [address] [facility]04/10/23 Team Status: Active Member Role Status Dates Kaya Tomlinson RN Attending Provider Active Start: August 30, 2024 Team Status: Inactive Member Role Status Dates Shama Allen NP-C Attending Provider Active St art: October 31, 2024 End: October 31lydia Kohler NP-Critical access hospitalry Care ProviderActive Start: October 31, 2024 End: October 31, 2024Team MemberRelationshipSpecialtyStart DateEnd Date Jennifer Cabrera MD [address] [facility] [place] [address] PCP - [facility]04/10/23 Pastora Kohler NP [address] [facility] [place] [address] PCP - [facility]/ Pastora Kohler NP [address] [place] [address] [facility]04/10/23 Team Status: Inactive Member Role Status Dates Pastora Kohler NP-Joanie Primary Care Provider Activ e Start: November 18, 2024 End: November 18, 2024Deborvicki Joanie Aubrey , APRNAttenpavel ProviderActiveStart: November 18, 2024 End: November 18, 2024Team MemberRelationshipSpecialtyStart DateEnd Date Jennifer Cabrera MD [address] [facility] [place] [address] [facility]04/10/23 Pastora Kohler NP [address] [place] [address] PCP - [facility] Pastora Kohler NP [address] [place] [address] [facility]04/10/23Team MemberRelationshipSpecialtyStart DateEnd Date Jennifer Cabrera MD [address] [facility] [place] [address] [facility]04/10/23 Pastora Kohler NP [address] [place] [address] PCP - [facility]/ Pastora Kohler NP [address] [facility] [place] [address] [facility]04/10/23Team MemberRelationshipSpecialtyStart DateEnd Date Jennifer Cabrera MD [address] [facility] [place] [address] PCP - [facility]04/10/23 Pastora Kohler NP [address] [facility] [place] [address] PCP - [facility]/ Pastora Kohler NP [address] [facility] [place] [id number] [facility]04/10/23 Goals (unrecognized section and content) Goals may be documented in a n alternate section Scheduled Active and Recently Administ ered Medications (unrecognized section and content) Medication Order// sodium chloride flush 0.9 % injection 5-40 mL 5-40 mL, IntraVENous, EVERY 12 HOURS SCHEDULED (2 times per day), First dose on Thu06/30/23 at 2100, Until Discontinued, For Line Patency: Peripheral IV = 5 mL; Midline or Central Line = 10 mL/lumen.If following IV push medication, administer flush at same rate as the IV push. Flush volume is determined by type of infusion therapy being given. For non-viscous solutions use: Peripheral IV = 5 mL Midline or Central Line = 10 mL/lumen For viscous solutions (i.e. blood components, parenteral nutrition, contrast media, or after obtaining blood sample) use: Peripheral IV = 10 mL Midline or CentralLine = 20 mL/lumen, Recovery(Cath) * 2100 (Due) Medication Order/// 0.9 % sodium chloride infusion IntraVENous, at 75 mL/hr, CONTINUOUS, Starting on Thu06/30/23 at 1115, Pre-Procedure(Cath) * 1119 (New Bag - Provider: Gladys Frias RN) 0.9 % sodium chloride infusion IntraVENous, at 75 mL/hr, CONTINUOUS, Starting on Thu06/30/23 at 1300, For 66 hours, Recovery(Cath) * 1239 (New Bag - Provider: Katja Armando, RN) * 1455 (Stopped - Provider: Tabatha Ledezma, RN) Medication Order// 0.9 % sodium chloride infusion IntraVENous, at [...] is 4000 mg from all sources in 24hours., Recovery(Cath) fentaNYL (SUBLIMAZE) injection (CANCELED) PRN, Starting on Thu06/30/23 at 1206, Until Thu06/30/23 at 1229, Intra-procedure(Cath) * 1206 (Given - Provider: CARLOS CHAPPELL) heparin (porcine) 4,000 Units, nitroGLYCERIN 300 mcg, verapamil (ISOPTIN) 2.5 mg 6.5 mL syringe (CANCELED) PRN, Starting on Thu06/30/23 at 1218, Intra-procedure(Cath) * 1218 (Given - Provider: Piotr Logan MD) iopamidol (ISOVUE-370) 76 % injection (CANCELED) PRN, Starting on Thu06/30/23 at 1227, Until Thu06/30/23 at 1229, Intra-procedure(Cath) * 1227 (Given - Provider: Piotr Logan MD) lidocaine 1 % injection (CANCELED) PRN, Starting on Thu06/30/23 at 1208, Until Thu06/30/23 at 1229, Intra-procedure(Cath) * 1208 (Given - Provider: Piotr Logan MD) midazolam (VERSED) injection (CANCELED) PRN, Starting on Thu06/30/23 at 1206, Until Thu06/30/23 at 1229, Intra-procedure(Cath) * 1206 (Given - Provider: CARLOS CHAPPELL) ondansetron (ZOFRAN) injection 4 mg [...] For viscous solutions (i.e. blood components, parenteral nutrition,contrast media, or after obtaining blood sample) use: Peripheral IV = 10 mL Midline or Central Line= 20 mL/lumen, Recovery(Cath) FOR RECORDS PERTAINING TO [...] BE BASED ON THE PRIMARY CLINICAL RECORDS. [employer] provides no warranty or guarantee of the accuracy or completeness of information in this document.
--- NOTE | 2024-12-08 09:22 | PM.CN ---
Consult Note: HPI Data of Consult Patient: known to practice within the last 3 years Consult date: 12/08/24 Requesting Physician: Shama Allen NP Primary Care Provider: [facility] Consult Narrative Reason for consult: low back and LLE pain Narrative: Lesli Clay a pleasant 64 year old female presents for evaluation and management of chronic low back pain and bilateral hip/buttock pain and left knee pain, hx of L1-S1 posterior fusion. Today pain 4/10 increasing to 8/10 with activity. Patient reports aching, pressure, burning. Patient finding benefit to current medication regimen without side effects. She has failed to benefit from lumbar mbbs prior to most recent back surgery, failed caudal EVANGELINA, as well as recent left L4-5 L5-S1 TFESI. At previous visits we discussed SCS trial but she has not been interested in. cc:: CC: Shama Allen NP Review of Systems ROS Musculoskeletal Reports: back pain and joint pain PFSH PFSH Medical History Pelvic pain ?R10.2 - Pelvic and perineal pain (ICD-10) Post-menopausal bleeding ?N95.0 - Postmenopausal bleeding (ICD-10) Fibromyalgia ?M79.7 - Fibromyalgia (ICD-10) Arthritis ?M19.90 - Unspecified osteoarthritis, unspecified site (ICD-10) Neck pain ?M54.2 - Cervicalgia (ICD-10) Back pain ?M54.9 - Dorsalgia, unspecified (ICD-10) Depression ?F32.A - Depression, unspecified (ICD-10) Panic attacks ?F41.0 - Panic disorder [episodic paroxysmal anxiety] (ICD-10) COVID-19 ?U07.1 - COVID-19 (ICD-10) Dyspnea on exertion ?R06.09 - Other forms of dyspnea (ICD-10) High cholesterol ?E78.00 - Pure hypercholesterolemia, unspecified (ICD-10) Diabetes ?E11.9 - Type 2 diabetes mellitus without complications (ICD-10) Delayed recovery from anesthesia Anesthesia complication ?T88.59XA - Other complications of anesthesia, initial encounter (ICD-10) Postmenopausal ?Z78.0 - Asymptomatic menopausal state (ICD-10) RSD (reflex sympathetic dystrophy) ?G90.50 - Complex regional pain syndrome I, unspecified (ICD-10) Low back pain ?M54.50 - Low back pain, unspecified (ICD-10) Osteoarthritis ?M19.90 - Unspecified osteoarthritis, unspecified site (ICD-10) Shingles ?B02.9 - Zoster without complications (ICD-10) Anxiety ?F41.9 - Anxiety disorder, unspecified (ICD-10) Obesity ?E66.9 - Obesity, unspecified (ICD-10) Heartburn ?R12 - Heartburn (ICD-10) Acid reflux ?K21.9 - Gastro-esophageal reflux disease without esophagitis (ICD-10) Diabetes 1.5, managed as type 2 ?E13.9 - Other specified diabetes mellitus without complications (ICD-10) Hypercholesterolemia ?E78.00 - Pure hypercholesterolemia, unspecified (ICD-10) Hypertension ?I10 - Essential (primary) hypertension (ICD-10) Surgical History S/P epidural steroid injection ?Z92.241 - Personal history of systemic steroid therapy (ICD-10) History of carpal tunnel release ?Z98.890 - Other specified postprocedural states (ICD-10) History of arthroplasty of knee ?Z96.659 - Presence of unspecified artificial knee joint (ICD-10) History of fusion of cervical spine ?Z98.1 - Arthrodesis status (ICD-10) H/O hemorrhoidectomy ?Z98.890 - Other specified postprocedural states (ICD-10) History of delivery ?Z98.891 - History of uterine scar from previous surgery (ICD-10) Hx of arthroscopy of knee ?Z98.890 - Other specified postprocedural states (ICD-10) H/O repair of rotator cuff ?Z98.890 - Other specified postprocedural states (ICD-10) H/O dilation and curettage ?Z98.890 - Other specified postprocedural states (ICD-10) History of hysteroscopy ?Z98.890 - Other specified postprocedural states (ICD-10) H/O lumbar discectomy ?Z98.890 - Other specified postprocedural states (ICD-10) History of lumbar laminectomy ?Z98.890 - Other specified postprocedural states (ICD-10) S/P trigger finger release ?Z98.890 - Other specified postprocedural states (ICD-10) Family History Other Family history of heart disease Family history of hypertension Family history of myocardial infarction Social History Within the past year, how often did you have a drink containing alcohol: never Score interpretation: A score less than 3 is consistent with normal alcohol consumption. Smoking status: Former smoker Non-prescribed substance use: denies use Highest level of school completed/degree received: high school graduate Meds Home Medications and Allergies Home Medications ?Medication ?Instructions ?Recorded ?Confirmed ?Type atorvastatin 40 mg tablet 40 mg PO QDAY 07/16/22 11/28/24 History bupropion HCl 300 mg 24 hr tablet, 300 mg PO QDAY 07/16/22 11/28/24 History extended release (Wellbutrin XL) metoprolol tartrate 25 mg tablet 25 mg PO BID 07/16/22 11/28/24 History tizanidine 4 mg capsule (Zanaflex) 4 mg PO Q12H 07/16/22 11/28/24 History aripiprazole 15 mg tablet (Abilify) 15 mg PO DAILY 05/12/23 11/28/24 History insulin degludec 100 unit/mL (3 48 unit subcut DAILY 05/12/23 11/28/24 History mL) subcutaneous pen (Tresiba FlexTouch U-100 insulin) losartan 50 mg-hydrochlorothiazide 1 tab PO DAILY 05/12/23 11/28/24 History 12.5 mg tablet (Hyzaar) semaglutide 2 mg/dose (8 mg/3 mL) 2 mg subcut QWEEK 05/12/23 11/28/24 History subcutaneous pen injector (Ozempic) hydroxyzine pamoate 25 mg capsule 25 mg PO QID PRN anxiety 08/06/23 11/28/24 History nortriptyline 50 mg capsule 50 mg PO DAILY 08/06/23 11/28/24 History naloxone 4 mg/actuation nasal 4 mg intranasal Q2M PRN opioid 02/03/24 11/28/24 Rx spray (Narcan) overdose #2 ea pregabalin 100 mg capsule (Lyrica) 100 mg PO TID #90 caps 08/22/24 11/28/24 Rx oxycodone-acetaminophen 7.5 mg-325 1 tab PO TID PRN pain #90 tabs 08/31/24 11/28/24 Rx mg tablet (Percocet) tizanidine 4 mg tablet 4 mg PO BID PRN muscle spasticity 10/03/24 11/28/24 Rx #60 tabs tizanidine 4 mg tablet 4 mg PO BID PRN muscle spasticity 10/03/24 11/28/24 Rx #60 tabs pregabalin 100 mg capsule (Lyrica) 100 mg PO TID #90 caps 10/31/24 11/28/24 Rx oxycodone-acetaminophen 7.5 mg-325 1 tab PO TID PRN pain #90 tabs 11/03/24 11/28/24 Rx mg tablet (Percocet) oxycodone-acetaminophen 7.5 mg-325 1 tab PO TID PRN pain #90 tabs 12/02/24 Rx mg tablet (Percocet) Allergies Allergy/AdvReac Type Severity Reaction Status Date / Time No Known Drug Allergies Allergy Verified 11/28/24 09:46 Exam Narrative Exam Narrative: diffuse pain Constitutional Documenting provider has reviewed patient's vital signs: yes Common normals: no apparent distress, oriented x3, healthy appearing, alert and well nourished General appearance: cooperative HENMT Common normals: normocephalic, hearing grossly normal bilaterally and moist oral mucous membranes Head and scalp: normocephalic Eye Common normals: PERRL Pupil: PERRL Neck & C-Spine Common normals: full ROM General: normal visual inspection Chest Common normals: inspection of chest normal Respiratory Common normals: normal respiratory effort, no retractions and no use of accessory muscles Back & Pelvis Lumbar spine/lower back: ROM limited, pain with ROM and lumbar spinal tenderness Sacroiliac joints: SI joint(s) abnormal Other: left SIJ positive paola(patricks), gaenslens, thigh thrust, compression test Neuro Common normals: oriented x3 Sensorium/orientation: alert Psych Common normals: mental status grossly normal, thought process normal, cooperative, affect normal, speech normal and activity/motor behavior normal Speech: normal speech Thought process: normal thought process Results Additional Findings Additional findings: If on a controlled substance or opioids, I have checked an [place]AR[place] report on this patient and there are no aberrancies noted in the prescribing history.??If on a controlled substance or opioid a drug screen was completed and reviewed within the last year, and if there has not been a drug screen completed we ordered one today to monitor higher risk, state monitored pain medication use. As part of providing excellent, safe, comprehensive care, the following was completed at our patient's visit: 1. A medication reconciliation and review to ensure accurate knowledge of current/active medications, including asking our patients to inform us about any [id number] medications or herbal remedies/nutritional supplements/alternative remedies. 2. A review to specifically ensure our patients have had annual screening for screening for depression, screening for tobacco use, and screening for unhealthy alcohol use. For concerning screenings had a discussion with the patient, provided patient education, and recommended follow-up with primary care provider when appropriate. If patient noted with a risk of falling, they received education on strength, gait, and balance training to prevent future risk of falling. Portions of this note may have been carried over from the previous visit and updated as appropriate. Please note this office utilizes paper charting in addition to the electronic medical record. A list of current medications, vitals, and PMH is available there as the clinical staff outside of myself do not have access to [employer] charting during the clinic day operations. As part of providing quality comprehensive care the current medications, vitals, and PMH were reviewed in the paper chart. Assessment and Plan Assessment and Plan (1) Sacroiliitis: (2) Failed back syndrome: (3) Lumbar stenosis with neurogenic claudication: (4) Myalgia, other site: (5) Chronic prescription opiate use: Assessment and Plan: I feel these medications are improving the patient's quality of life and allow them to tolerate activities of daily living as well as participate in recreational activity.? The patient does not report intolerable side effects. The patient is NOT opioid naive and non-pharmacologic and non-opioid treatment has failed to significantly relieve the patient's pain and improve functionality. The patient has a diagnosis that is related to a somatic or visceral pain etiology. ? ?? I reviewed with the patient the potential risks and side effects with the use of? opioid medications including but not limited to respiratory depression,? sedation, and even . Within the last 12 months I have verified the patient has access to naloxone should? these effects occur. The patient was advised to let? their family know they had Naloxone in case they would need to administer? the medication. I advised the patient to avoid the use of any other? sedation substances including alcohol, THC, and benzodiazepines while? taking opioid medications due to the risk of compounding side effects and? detrimental outcomes. within the last 12 months I have reviewed the BASKET [employer], pain treatment agreement and urine drug screen.? ?? A drug screen was completed within the last year, and no aberrancies were noted regarding their use of controlled substances. The patient understands they are subject to the terms and conditions of the pain contract that they have signed. ? ?? I have checked an OAR[place] report on this patient today and there are no aberrancies noted in the prescribing history.? (6) Fibromyalgia: Plan The patient has had over 3 months of moderate to severe low back and left SIJ pain with functional impairment and inadequate response to conservative care including NSAIDS (unless there are contraindication such as concurrent blood thinners), multiple oral or topical pain medications, and home exercise program/physical therapy.? Patient has completed >6 weeks of guided home exercise program and/or formal physical therapy program without relief of their symptoms.? The Oswestry Disability Index was completed, and the patient scored a 53%.? left SIJ injection under fluoroscopy refer to NS to evaluation prior to scs trial/implant continue current medications, risks vs benefits reviewed. pt continues to report moderate pain relief for 4 hours after utilizing percocet. denies side effects from current medication regimen f/u 2 weeks after injection
== END 2024-12-08 08:45 | disposition home or self-care (01) ==
LOC: PM 08:45
PROVIDERS: Visit Provider Nurse Practitioner
DX: M46.1 Sacroiliitis, not elsewhere classified (principal); M96.1 Postlaminectomy syndrome, not elsewhere classified; M48.062 Spinal stenosis, lumbar region with neurogenic claudication; M79.18 Myalgia, other site; Z79.891 Long term (current) use of opiate analgesic
CPT/HCPCS: G0463